=== PATIENT | female | born 1965 | race Caucasian/White ===

== ENCOUNTER 2020-05-05 10:49 | Emergency (ER) | payer OTHER, MEDICARE ==
[~2020-05-05] VITALS: Ht 162 cm; Wt 61.0 kg
--- OUTSIDE RECORDS SUMMARY | 2020-05-05 10:58 | XMS REPORT ---
Author Author Jeri Turner Doctor Organization [facility] Address Unknown Phone Unavailable Care Team Providers Care Tissue Inserter Name Role Phone Migration, Doctor Unavailable Unavailable PROBLEMS Type Condition ICD9-CM Code [id number] Code Onset Dates Condition S tatus SNOMED Code Problem Moderate episode of recurrent major depressive disorder F33.1 Active 654609955 Problem Panic disorder with agoraphobia F40.01 Active 64415005 Problem Dental examination V72.2 Active 3 2526982 Problem Anxiety F41.9 Active [id number] ALLERGIES No Information ENCOUNTERS Encounter Location Date Diagnosis [facility] [address] [place] [phone] 04 Dec, 2019 [facility] [address] [place] [address] 30 Oct, 2019 Dental examination Z01.20 ; Periodontitis K05.30 and Oral health maintenance status requiring routine preventive dental care K08.9 [facility] [address] [place] [address] [place] [address] Sep, Moderate episode of recurrent major depressive disorder F33.1 ; Anxiety F41.9 and Panic disorder with agoraphobia F40.01 [facility] [address] [place] [address] [place] [phone] 13 Jun, 2019 Moderate episode of recurrent major depressive disorder F33.1 ; Anxiety F41.9 and Panic disorder with agoraphobia F40.01 [facility] [address] [place] [address] 11 Apr, 2019 Dental examination Z01.20 ; Periodontitis K05.30 and Oral health maintenance status requiring routine preventive dental care K08.9 [facility] [address] [place], [place] [id number] [place] [address] 11 Apr, 2019 Moderate episode of recurrent major depressive disorder F33.1 ; Anxiety F41.9 and Panic disorder with agoraphobia F40.01 [facility] [place] [address] [id number] [place] [address] Feb, [facility] [address] [place], [place] [id number] [address] Feb, [facility] [address] [place] [id number] [place] [address] Jan, Dental examination Z01.20 ; Oral health maintenance status requiring routine preventive dental care K08.9 and Periodontitis K05.30 [facility] [address] [place] [address] [place], [place] [id number] [place] [address] Dec, Moderate episode of recurrent major depressive disorder F33.1 ; Anxiety F41.9 and Panic disorder with agoraphobia F40.01 [facility] [address] [place] [address] [place] [id number] [place] [address] 15 Nov, 2018 Caries K02.9 [facility] [address] [place] [id number] [address] Oct, Caries K02.9 and Dental examination Z01.20 [facility] [address] [place] [address] [place] [id number] [place] [address] Sep, [facility] [address] [place] [id number] [place] [address] Sep, Anxiety F41.9 ; Moderate episode of recurrent major depressive disorder F33.1 and Panic disorder with agoraphobia F40.01 [facility] [address] [place] [address] [place] [id number] [place] [address] Sep, Dental examination Z01.20 ; Periodontitis K05.30 ; Oral health maintenance status requiring routine preventive dental care K08.9 and Caries K02.9 [facility] [address] [place] [address] [place] [id number] [address] Aug, Moderate episode of recurrent major depressive disorder F33.1 [facility] [address] [place] [address] [place] [id number] [place] [address] Aug, Anxiety F41.9 ; Moderate episode of recurrent major depressive disorder F33.1 and Panic disorder with agoraphobia F40.01 [facility] [place] [address] [id number] [place] [address] May, Anxiety F41.9 ; Moderate episode of recu rrent major depressive disorder F33.1 and Panic disorder with agoraphobia F40.01 [facility] [place] [address] [id number] [place] [address] Feb, Anxiety F41.9 ; Moderate episode of recu rrent major depressive disorder F33.1 and Panic disorder with agoraphobia F40.01 [facility] [place] [address] [place] [address] 20 Dec, 18 Dental examination Z01.20 [facility] [place] [address] [place] [address] 08 Dec, 18 Dental examination Z01.20 [facility] [place] [address] [place] [address] Nov, 18 Dental examination Z01.20 [facility] [place] [address] [place] [address] Nov, 18 Anxiety F41.9 [facility] [place] [address] [id number] [place] [address] Nov, Anxiety F41.9 ; Moderate episode of recu rrent major depressive disorder F33.1 and Panic disorder with agoraphobia F40.01 [facility] [place] [address] [place] [address] 09 Sep, 17 Dental examination Z01.20 [facility] [place] [address] [place] [address] Jul, 17 Dental examination Z01.20 [facility] [place] [address] [id number] [place] [address] Jul, Anxiety F41.9 [facility] [place] [address] [id number] [place] [address] Jul, Anxiety F41.9 ; Moderate episode of recu rrent major depressive disorder F33.1 and Panic disorder with agoraphobia F40.01 [facility] [address] [place] [address] Apr, [facility] [place] [address] [facility] [id number] [place] [address] Apr, Anxiety F41.9 [facility] [place] [address] [id number] [place] [address] Apr, Anxiety F41.9 ; Moderate episode of recu rrent major depressive disorder F33.1 and Panic disorder with agoraphobia F40.01 [facility] [address] [place] [address] Apr, Dental examination Z01.20 [facility] [address] [id number] [place] [address] March, Anxiety F41.9 ; Moderate episode of recu rrent major depressive disorder F33.1 and Panic disorder with agoraphobia F40.01 [facility] [address] [place] [address] March, Dental examination Z01.20 [facility] [address] [id number] [place] [address] Feb, Anxiety F41.9 [facility] [address] [id number] [place] [address] Feb, Anxiety F41.9 ; Moderate episode of recu rrent major depressive disorder F33.1 and Panic disorder with agoraphobia F40.01 [facility] [address] [place] [address] Jan, Anxiety F41.9 and Moderate episode of recurrent major depressive disorder F33.1 [facility] [place] [address] [place] [address] Oct, 16 Dental examination Z01.20 [facility] [address] [place] [address] Jun, 16 Dental examination Z01.20 [facility] [address] [place] [address] Feb, 16 Dental examination Z01.20 [facility] [address] [place] [address] Oct, 15 Dental examination Z01.20 [facility] [place] [address] [address] Feb, [facility] [place] [address] [address] Feb, [facility] [place] [address] [address] Dec, [facility] [place] [address] [address] Jul, [facility] [place] [address] [address] Feb, [facility] [place] [address] [place] [id number] [place] [address] Feb, [facility] [place] [address] [address] Jan, IMMUNIZATIONS No Known Immunizations SOCIAL HISTORY Never Assessed REASON FOR VISIT PLAN OF CARE VITAL SIGNS Blood pressure systolic 128 mmHg 2014-02-07 Blood pressure diastolic 86 mmHg 2014-02-07 MEDICATIONS Unknown Medications RESULTS No Results PROCEDURES Procedure Date Ordered Result Body Site AMALGAM-TWO SURFACES PRIMARY/PERM February 07, 2014 INSTRUCTIONS MEDICATIONS ADMINISTERED No Known Medications MEDICAL (GENERAL) HISTORY Type Description Date Medical History pneumonia Medical History arthritis Medical History neck injuries Medical History anemia Medical History swollen ankles Medical History transverse myelitis Medical History fibromyalgia Medical History osteopenia Medical History restless leg syndrome Medical History neuropathy Surgical History lesion on facial gingiva of #20 partly e xcised 01/2015 Surgical History wider excision of lesion on facial gingiva #20 and reconstruction graft 02/2015 Hospitalization History surgery(s)
--- OUTSIDE RECORDS SUMMARY | 2020-05-05 10:58 | XMS REPORT ---
Author Author Jeri Turner Doctor Organization [facility] Address Unknown Phone Unavailable Care Team Providers Care Visual Manager Name Role Phone Migration, Doctor Unavailable Unavailable PROBLEMS Type Condition ICD9-CM Code [facility]92-MC Code Onset Dates Condition S tatus SNOMED Code Problem Panic disorder with agoraphobia F40.01 Active 78295639 Problem Insomnia G47.00 Active 170569713 Problem Dental examination V72.2 Active 3 2966258 Problem Anxiety F41.9 Active 15358628 Problem Moderate episode of recurrent major depressive disorder F33.1 Active 738255690 ALLERGIES No Information ENCOUNTERS Encounter Location Date Diagnosis [facility] [address] [place] [address] [place] [address] March, [facility] [address] [place] [address] [place] [address] 17 Dec, 2019 Dental examination Z01.20 and Caries K02.9 [facility] [address] [place] [address] [place] [address] 04 Dec, 2019 Moderate episode of recurrent major depressive disorder F33.1 ; Anxiety F41.9 ; Panic disorder with agoraphobia F40.01 and Insomnia G47.00 [facility] [address] [place] [address] [place] [address] 30 Oct, 2019 Dental examination Z01.20 ; Periodontitis K05.30 and Oral health maintenance status requiring routine preventive dental care K08.9 [facility] [address] [place] [address] [place] [address] Sep, Moderate episode of recurrent major depressive disorder F33.1 ; Anxiety F41.9 and Panic disorder with agoraphobia F40.01 [facility] [address] [address] [place] [address] Jun, Moderate episode of recurrent major depressive disorder F33.1 ; Anxiety F41.9 and Panic disorder with agoraphobia F40.01 [facility] [address] [place] [address] [place] [id number] [address] 11 Apr, 2019 Dental examination Z01.20 ; Periodontitis K05.30 and Oral health maintenance status requiring routine preventive dental care K08.9 [facility] [address] [address] [place] [id number] [address] 11 Apr, 2019 Moderate episode of recurrent major depressive disorder F33.1 ; Anxiety F41.9 and Panic disorder with agoraphobia F40.01 [facility] [address] [id number] [place] [address] Feb, [facility] [address] [place] [id number] [place] [address] Feb, [facility] [address] [place] [id number] [place] [address] Jan, Dental examination Z01.20 ; Oral health maintenance status requiring routine preventive dental care K08.9 and Periodontitis K05.30 [facility] [address] [address] [place] [id number] [place] [address] Dec, Moderate episode of recurrent major depressive disorder F33.1 ; Anxiety F41.9 and Panic disorder with agoraphobia F40.01 [facility] [address] [address] [place] [id number] [place] [address] 15 Nov, 2018 Caries K02.9 [facility] [address] [address] [place] [id number] [place] [address] 17 Oct, 2018 Caries K02.9 and Dental examination Z01.20 [facility] [address] [place] [address] [place] [id number] [address] Sep, [facility] [place] [address] [place] [id number] [address] Sep, Anxiety F41.9 ; Moderate episode of recurrent major depressive disorder F33.1 and Panic disorder with agoraphobia F40.01 [facility] [address] [address] [place] [id number] [address] Sep, Dental examination Z01.20 ; Periodontitis K05.30 ; Oral health maintenance status requiring routine preventive dental care K08.9 and Caries K02.9 [facility] [address] [place] [id number] [address] Aug, Moderate episode of recurrent major depressive disorder F33.1 [facility] [address] [address] [place] [id number] [address] Aug, Anxiety F41.9 ; Moderate episode of recurrent major depressive disorder F33.1 and Panic disorder with agoraphobia F40.01 [facility] [address] [id number] [place] [address] May, Anxiety F41.9 ; Moderate episode of recu rrent major depressive disorder F33.1 and Panic disorder with agoraphobia F40.01 [facility] [place] [address] [id number] [place] [address] Feb, Anxiety F41.9 ; Moderate episode of recu rrent major depressive disorder F33.1 and Panic disorder with agoraphobia F40.01 [facility] [address] [place] [address] 20 Dec, 18 Dental examination Z01.20 [facility] [address] [place] [address] 08 Dec, 18 Dental examination Z01.20 [facility] [address] [place] [address] Nov, 18 Dental examination Z01.20 [facility] [address] [place] [address] Nov, 18 Anxiety F41.9 [facility] [address] [id number] [place] [address] Nov, Anxiety F41.9 ; Moderate episode of recu rrent major depressive disorder F33.1 and Panic disorder with agoraphobia F40.01 [facility] [address] [place] [address] Sep, Dental examination Z01.20 [facility] [address] [place] [address] Jul, Dental examination Z01.20 [facility] [place] [address] [id number] [place] [address] Jul, Anxiety F41.9 [facility] [place] [address] [id number] [place] [address] Jul, Anxiety F41.9 ; Moderate episode of recu rrent major depressive disorder F33.1 and Panic disorder with agoraphobia F40.01 [facility] [address] [place] [address] Apr, [facility] [address] [id number] [place] [address] Apr, Anxiety F41.9 [facility] [place] [address] [id number] [place] [address] Apr, Anxiety F41.9 ; Moderate episode of recu rrent major depressive disorder F33.1 and Panic disorder with agoraphobia F40.01 [facility] [address] [place] [address] Apr, Dental examination Z01.20 [facility] [place] [address] [id number] [place] [address] March, Anxiety F41.9 ; Moderate episode of recu rrent major depressive disorder F33.1 and Panic disorder with agoraphobia F40.01 [facility] [address] [place] [address] March, Dental examination Z01.20 [facility] [place] [address] [id number] [place] [address] Feb, Anxiety F41.9 [facility] [place] [address] [id number] [place] [address], 2017 Anxiety F41.9 ; Moderate episode of recu rrent major depressive disorder F33.1 and Panic disorder with agoraphobia F40.[address] [address] 09 Jan, 17 Anxiety F41.9 and Moderate episode of recurrent major depressive disorder F33.[address] [address] 15 Oct, 16 Dental examination Z01.[address] [address] 18 Jun, 16 Dental examination Z01.[address] [address] 18 Feb, 16 Dental examination Z01.[address] [address] 21 Oct, 15 Dental examination Z01.20 [facility] [address] [address] Feb, [facility] [address] [address] Feb, [facility] [address] [address] Dec, [facility] [address] [address] Jul, [facility] [address] [address] Feb, [facility] [address] [address] Feb, [facility] [address] [address] Jan, IMMUNIZATIONS No Known Immunizations SOCIAL HISTORY Never Assessed REASON FOR VISIT PLAN OF CARE VITAL SIGNS Blood pressure systolic 122 mmHg 2014-01-24 Blood pressure diastolic 75 mmHg 2014-01-24 MEDICATIONS Unknown Medications RESULTS No Results PROCEDURES Procedure Date Ordered Result Body Site PROPHYLAXIS - ADULT January 24, 2014 BITEWINGS - FOUR FILMS January 24, 2014 INTRAORL-PERIAPICAL 1 FILM 82932 January 24, 2014 PERIODIC ORAL EXAMINATION January 24, 2014 INSTRUCTIONS MEDICATIONS ADMINISTERED No Known Medications [...]
--- OUTSIDE RECORDS SUMMARY | 2020-05-05 10:58 | XMS REPORT ---
Author Author Jeri Turner Doctor Organization [facility] Address Unknown Phone Unavailable Care Team Providers Care Software Engineer Web Services Name Role Phone Migration, Doctor Unavailable Unavailable PROBLEMS Type Condition ICD9-CM Code [id number] Code Onset Dates Condition S tatus SNOMED Code Problem Panic disorder with agoraphobia F40.01 Active 89547284 Problem Insomnia G47.00 Active 973272215 Problem Dental examination V72.2 Active 3 4430768 Problem Anxiety F41.9 Active 04814747 Problem Moderate episode of recurrent major depressive disorder F33.1 Active 100136965 ALLERGIES No Information ENCOUNTERS Encounter Location Date Diagnosis [facility] [address] [address] [place], [place] [id number] [address] March, [facility] [address] [place] [id number] [address] Jan, Anxiety F41.9 [facility] [address] [address] [place] [id number] [address] 17 Dec, 2019 Dental examination Z01.20 and Caries K02 .9 [facility] [address] [place] [address] [address] 04 Dec, 2019 Moderate episode of recurrent major depr essive disorder F33.1 ; Anxiety F41.9 ; Panic disorder with agoraphobia F40.01 and Insomnia G47.00 [facility] [address] [place] [address] [address] 30 Oct, 2019 Dental examination Z01.20 ; Periodontiti s K05.30 and Oral health maintenance status requiring routine preventive dental care K08.9 [facility] [address] [place], [place] [id number] [address] Sep, Moderate episode of recurrent major depr essive disorder F33.1 ; Anxiety F41.9 and Panic disorder with agoraphobia F40.01 [facility] [address] [place] [address] [facility] [id number] [place] [address] Jun, Moderate episode of recurrent major depr essive disorder F33.1 ; Anxiety F41.9 and Panic disorder with agoraphobia F40.01 [facility] [address] [place] [address] [place] [address] [id number] [place] [address] 11 Apr, 2019 Dental examination Z01.20 ; Periodontiti s K05.30 and Oral health maintenance status requiring routine preventive dental care K08.9 [facility] [address] [place] [address] [place] [address] [id number] [place] [address] 11 Apr, 2019 Moderate episode of recurrent major depr essive disorder F33.1 ; Anxiety F41.9 and Panic disorder with agoraphobia F40.01 [facility] [address] [facility] [id number] [address] [place] [address] Feb, [facility] [address] [place] [address] [place] [id number] [address] Feb, [facility] [address] [place] [address] [place] [id number] [address] 20 Jan, 2019 Dental examination Z01.20 ; Oral health maintenance status requiring routine preventive dental care K08.9 and Periodontitis K05.30 [facility] [address] [place] [address] [place] [address] [id number] [place] [address] Dec, Moderate episode of recurrent major depr essive disorder F33.1 ; Anxiety F41.9 and Panic disorder with agoraphobia F40.01 [facility] [address] [place] [address] [place] [address] [id number] [place] [address] Nov, Caries K02.9 [facility] [address] [place] [address] [place] [address] [id number] [place] [address] Oct, Caries K02.9 and Dental examination Z01. 20 [facility] [address] [place] [address] [place] [address] [id number] [place] [address] Sep, [facility] [address] [place] [address] [place] [id number] [address] Sep, Anxiety F41.9 ; Moderate episode of recu rrent major depressive disorder F33.1 and Panic disorder with agoraphobia F40.01 [facility] [address] [place] [address] [id number] [place] [address] Sep, Dental examination Z01.20 ; Periodontiti s K05.30 ; Oral health maintenance status requiring routine preventive dental care K08.9 and Caries K02.9 [facility] [address] [address] [place] [id number] [address] Aug, Moderate episode of recurrent major depr essive disorder F33.1 [facility] [address] [place] [id number] [address] Aug, Anxiety F41.9 ; Moderate episode of recu rrent major depressive disorder F33.1 and Panic disorder with agoraphobia F40.01 [facility] [place] [address] [id number] [place] [address] May, Anxiety F41.9 ; Moderate episode of recu rrent major depressive disorder F33.1 and Panic disorder with agoraphobia F40.01 [facility] [place] [address] [id number] [place] [address] Feb, Anxiety F41.9 ; Moderate episode of recu rrent major depressive disorder F33.1 and Panic disorder with agoraphobia F40.01 [facility] [address] [place] [address] 20 Dec, 18 Dental examination Z01.20 [facility] [address] [place] [address] 08 Dec, 18 Dental examination Z01.20 [facility] [address] [place] [address] Nov, 18 Dental examination Z01.20 [facility] [address] [place] [address] Nov, 18 Anxiety F41.9 [facility] [place] [address] [id number] [place] [address] Nov, Anxiety F41.9 ; Moderate episode of recu rrent major depressive disorder F33.1 and Panic disorder with agoraphobia F40.01 [facility] [place] [address] [facility] [address] Sep, Dental examination Z01.20 [facility] [place] [address] [facility] [place] [address] Jul, Dental examination Z01.20 [facility] [place] [address] [id number] [place] [address] Jul, Anxiety F41.9 [facility] [place] [address] [id number] [place] [address] Jul, Anxiety F41.9 ; Moderate episode of recu rrent major depressive disorder F33.1 and Panic disorder with agoraphobia F40.01 [facility] [place] [address] [facility] [address] Apr, 17 [facility] [address] [id number] [address] [address] Apr, Anxiety F41.9 [facility] [place] [address] [id number] [place] [address] Apr, Anxiety F41.9 ; Moderate episode of recu rrent major depressive disorder F33.1 and Panic disorder with agoraphobia F40.01 [facility] [place] [address] [facility] [address] Apr, Dental examination Z01.20 [facility] [place] [address] [id number] [place] [address] March, Anxiety F41.9 ; Moderate episode of recu rrent major depressive disorder F33.1 and Panic disorder with agoraphobia F40.01 [facility] [place] [address] [facility] [address] March, 17 Dental examination Z01.20 [facility] [address] [id number] [address] Feb, Anxiety F41.9 [facility] [address] [id number] [place] [address] Feb, Anxiety F41.9 ; Moderate episode of recu rrent major depressive disorder F33.1 and Panic disorder with agoraphobia F40.01 [facility] [address] [place] [address] 09 Jan, 17 Anxiety F41.9 and Moderate episode of recurrent major depressive disorder F33.1 [facility] [place] [address] 15 Oct, 16 Dental examination Z01.20 [facility] [address] [place] [address] 18 Jun, 16 Dental examination Z01.20 [facility] [address] [place] [address] 18 Feb, 16 Dental examination Z01.20 [facility] [address] [place] [address] Oct, 15 Dental examination Z01.20 [facility] [address] [place] [id number] [place] [address] Feb, [facility] [address] [facility] [id number] [address] [place] [address] Feb, [facility] [address] [facility] [id number] [address] [place] [address] Dec, [facility] [address] [facility] [id number] [address] [place] [address] Jul, [facility] [address] [facility] [id number] [address] [place] [address] Feb, [facility] [address] [facility] [id number] [address] [place] [address] Feb, [facility] [address] [facility] [id number] [address] [place] [address] Jan, IMMUNIZATIONS No Known Immunizations SOCIAL HISTORY Never Assessed REASON FOR VISIT PLAN OF CARE VITAL SIGNS Blood pressure systolic 127 mmHg 2014-07-26 Blood pressure diastolic 78 mmHg 2014-07-26 MEDICATIONS Unknown Medications RESULTS No Results PROCEDURES Procedure Date Ordered Result Body Site PROPHYLAXIS - ADULT Jul 26, 2014 INSTRUCTIONS MEDICATIONS ADMINISTERED No Known Medications [...]
--- OUTSIDE RECORDS SUMMARY | 2020-05-05 10:58 | XMS REPORT ---
Author Author Jeri OROZCO Organization [facility] [address] [place] Address [address] [place] [address] Care Team Providers Care Cognos Lead Name Role Phone ERNESTO, DAWRAINER Unavailable PROBLEMS Type Condition ICD9-CM Code [id number] Code Onset Dates Condition S tatus SNOMED Code Problem Panic disorder with agoraphobia F40.01 Active 34540843 Problem Moderate episode of recurrent major depressive disorder F33.1 Active 644884915 Problem Anxiety F41.9 Active 37435968 Problem Dental examination V72.2 Active 3 5393913 ALLERGIES No Information ENCOUNTERS Encounter Location Date Diagnosis [facility] [place] [address] [id number] [address] Aug, [facility] [place] [address] [id number] [place] [address] May, Anxiety F41.9 ; Moderate episode of recu rrent major depressive disorder F33.1 and Panic disorder with agoraphobia F40.01 [facility] [place] [address] [id number] [place] [address] Feb, Anxiety F41.9 ; Moderate episode of recu rrent major depressive disorder F33.1 and Panic disorder with agoraphobia F40.01 [facility] [place] [address] [place] [address] Dec, Dental examination Z01.20 [facility] [place] [address] [place] [address] 08 Dec, 2017 Dental examination Z01.20 [facility] [place] [address] [place] [address] Nov, Dental examination Z01.20 [facility] [place] [address] [place] [address] Nov, Anxiety F41.9 [facility] [place] [address] [id number] [place] [address] Nov, Anxiety F41.9 ; Moderate episode of recu rrent major depressive disorder F33.1 and Panic disorder with agoraphobia F40.01 [facility] [place] [address] [place] [address] Sep, Dental examination Z01.20 [facility] [place] [address] [place] [address] Jul, Dental examination Z01.20 [facility] [place] [address] [id number] [place] [address] Jul, Anxiety F41.9 [facility] [place] [address] [id number] [place] [address] Jul, Anxiety F41.9 ; Moderate episode of recu rrent major depressive disorder F33.1 and Panic disorder with agoraphobia F40.01 [facility] [place] [address] [place] [address] Apr, [facility] [address] [facility] [id number] [place] [address] Apr, Anxiety F41.9 [facility] [place] [address] [id number] [place] [address] Apr, Anxiety F41.9 ; Moderate episode of recu rrent major depressive disorder F33.1 and Panic disorder with agoraphobia F40.01 [facility] [place] [address] [place] [address] Apr, Dental examination Z01.20 [facility] [place] [address] [id number] [place] [address] March, Anxiety F41.9 ; Moderate episode of recu rrent major depressive disorder F33.1 and Panic disorder with agoraphobia F40.01 [facility] [place] [address] [place] [address] March, Dental examination Z01.20 [facility] [place] [address] [id number] [place] [address] Feb, Anxiety F41.9 [facility] [address] [id number] [place] [address] Feb, Anxiety F41.9 ; Moderate episode of recu rrent major depressive disorder F33.1 and Panic disorder with agoraphobia F40.01 [facility] [place] [address] [place] [address] Jan, Anxiety F41.9 and Moderate episode of recurrent major depressive disorder F33.1 [facility] [place] [address] [place] [address] Oct, Dental examination Z01.20 [facility] [address] [address] Jun, Dental examination Z01.20 [facility] [place] [address] [place] [address] Feb, Dental examination Z01.20 [facility] [place] [address] Oct, Dental examination Z01.20 [facility] [address] [facility] [id number] [address] [place] [address] Feb, [facility] [address] [facility] [id number] [address] [place] [address] Feb, [facility] [address] [facility] [id number] [address] [place] [address] Dec, [facility] [address] [facility] [id number] [address] [place] [address] Jul, [facility] [address] [id number] [address] [place] [address] Feb, [facility] [address] [facility] [id number] [address] [place] [address] Feb, [facility] [address] [facility] [id number] [address] [place] [address] 24 Jan, 2014 IMMUNIZATIONS No Known Immunizations SOCIAL HISTORY Never Assessed REASON FOR VISIT Psych, Zulma Sotero RN PLAN OF CARE Activity Details Follow Up 3 Months, 4 Months Reason: VITAL SIGNS Height 64 in 2018-02-03 Weight 119 lbs 2018-02-03 Temperature 97.6 degrees Fahrenheit 2018-02-03 Heart Rate 77 bpm 2018-02-03 Respiratory Rate 20 2018-02-03 BMI 20.42 kg/m2 2018-02-03 Blood pressure systolic 124 mmHg 2018-02-03 Blood pressure diastolic 75 mmHg 2018-02-03 MEDICATIONS Medication Instructions Dosage Frequency Start Date End Date Duration S tatus Clonazepam 0.5 MG Orally 3 times a day by oral route 8h 30 days Active Venlafaxine HCl 37.5 MG Orally 2 times a day 1 tablet 12h 30 day(s) Active RESULTS No Results PROCEDURES Procedure Date Ordered Result Body Site [facility] VISIT ESTABLISHED PATIENT February 03, 2018 INSTRUCTIONS MEDICATIONS ADMINISTERED No Known Medications MEDICAL (GENERAL) HISTORY Type Description Date Medical History pneumonia Medical History arthritis Medical History neck injuries Medical History anemia Medical History swollen ankles Medical History transverse myelitis Medical History fibromyalgia Medical History osteopenia Surgical History lesion on facial gingiva of #20 partly e xcised 01/2015 Surgical History wider excision of lesion on facial gingiva #20 and reconstruction graft 02/2015 Hospitalization History surgery(s)
--- OUTSIDE RECORDS SUMMARY | 2020-05-05 10:58 | XMS REPORT ---
Author Author Jeri OROZCO Organization [facility] [address] [place] Address [address] [place] [address] Care Team Providers Care Manager Mall Name Role Phone ERNESTOBERTHA GARRETT Unavailable PROBLEMS Type Condition ICD9-CM Code ECT72-ZZ Code Onset Dates Condition S tatus SNOMED Code Problem Panic disorder with agoraphobia F40.01 Active 02843779 Problem Moderate episode of recurrent major depressive disorder F33.1 Active 141262924 Problem Anxiety F41.9 Active 70862075 Problem Dental examination V72.2 Active 3 3740983 ALLERGIES No Information ENCOUNTERS Encounter Location Date Diagnosis [facility] [address] [place] [address] [place] [address] Dec, 19 [facility] [address] [place] [address] [place] [address] Oct, 18 [facility] [address] [place] [address] Sep, 18 [facility] [address] [place] [address] Sep, 18 Anxiety F41.9 ; Moderate episode of recurrent major depressive disorder F33.1 and Panic disorder with agoraphobia F40.01 [facility] [address] [place] [address] [place] [address] Sep, 18 Dental examination Z01.20 ; Periodontitis K05.30 ; Oral health maintenance status requiring routine preventive dental care K08.9 and Caries K02.9 [facility] [address] [place] [address] Aug, 18 Moderate episode of recurrent major depressive disorder F33.1 [facility] [address] [place] [address] [place] [address] Aug, 18 Anxiety F41.9 ; Moderate episode of recurrent major depressive disorder F33.1 and Panic disorder with agoraphobia F40.01 [facility] [place] [address] [id number] [place] [address] May, Anxiety F41.9 ; Moderate episode of recu rrent major depressive disorder F33.1 and Panic disorder with agoraphobia F40.01 [facility] [place] [address] [id number] [place] [address] Feb, Anxiety F41.9 ; Moderate episode of recu rrent major depressive disorder F33.1 and Panic disorder with agoraphobia F40.01 [facility] [place] [address] [place] [address] 20 Dec, 18 Dental examination Z01.20 [facility] [place] [address] [place] [address] 08 Dec, 18 Dental examination Z01.20 [facility] [place] [address] [place] [address] Nov, 18 Dental examination Z01.20 [facility] [place] [address] [place] [address] Nov, 18 Anxiety F41.9 [facility] [place] [address] [id number] [place] [address] Nov, Anxiety F41.9 ; Moderate episode of recu rrent major depressive disorder F33.1 and Panic disorder with agoraphobia F40.01 [facility] [place] [address] [place] [address] Sep, 17 Dental examination Z01.20 [facility] [place] [address] [place] [address] Jul, 17 Dental examination Z01.20 [facility] [place] [address] [id number] [place] [address] Jul, Anxiety F41.9 [facility] [place] [address] [id number] [place] [address] Jul, Anxiety F41.9 ; Moderate episode of recu rrent major depressive disorder F33.1 and Panic disorder with agoraphobia F40.01 [facility] [place] [address] [place] [address] Apr, 17 [facility] [address] [facility] [id number] [address] [place] [address] Apr, Anxiety F41.9 [facility] [address] [id number] [place] [address] Apr, Anxiety F41.9 ; Moderate episode of recu rrent major depressive disorder F33.1 and Panic disorder with agoraphobia F40.01 [facility] [place] [address] [place] [address] Apr, Dental examination Z01.20 [facility] [address] [id number] [place] [address] March, Anxiety F41.9 ; Moderate episode of recu rrent major depressive disorder F33.1 and Panic disorder with agoraphobia F40.01 [facility] [place] [address] [place] [address] March, Dental examination Z01.20 [facility] [place] [address] [id number] [place] [address] Feb, Anxiety F41.9 [facility] [address] [id number] [place] [address] Feb, Anxiety F41.9 ; Moderate episode of recu rrent major depressive disorder F33.1 and Panic disorder with agoraphobia F40.01 [facility] [place] [address] [place] [address] Jan, 17 Anxiety F41.9 and Moderate episode of recurrent major depressive disorder F33.1 [facility] [place] [address] [place] [address] Oct, 16 Dental examination Z01.20 [facility] [place] [address] [place] [address] Jun, 16 Dental examination Z01.20 [facility] [address] [place] [address] Feb, 16 Dental examination Z01.20 [facility] [address] [place] [address] Oct, 15 Dental examination Z01.20 [facility] [address] [id number] [address] [place] [address] 14 Feb, 2015 [facility] [address] [id number] [address] [place] [address] Feb, [facility] [address] [id number] [address] [place] [address] Dec, [facility] [address] [facility] [id number] [address] [place] [address] Jul, [facility] [address] [facility] [id number] [address] [place] [address] Feb, [facility] [address] [id number] [address] [place] [address] Feb, [facility] [address] [facility] [id number] [address] [place] [address] Jan, IMMUNIZATIONS No Known Immunizations SOCIAL HISTORY Never Assessed REASON FOR VISIT Med Clarification PLAN OF CARE VITAL SIGNS MEDICATIONS Unknown Medications RESULTS No Results PROCEDURES No Known procedures INSTRUCTIONS MEDICATIONS ADMINISTERED No Known Medications MEDICAL [...]
--- OUTSIDE RECORDS SUMMARY | 2020-05-05 10:58 | XMS REPORT ---
Author Author Jeri OROZCO Organization [facility] [address] Address [address] [place] [address] Care Team Providers Care Human Resources Clerk Name Role Phone ERNESTO, DAWRAINER Unavailable PROBLEMS Type Condition ICD9-CM Code [id number] Code Onset Dates Condition S tatus SNOMED Code Problem Panic disorder with agoraphobia F40.01 Active 59966623 Problem Moderate episode of recurrent major depressive disorder F33.1 Active 034369393 Problem Anxiety F41.9 Active 81292238 Problem Dental examination V72.2 Active 3 6418724 ALLERGIES Substance Reaction Event Type Date Status Pramipexole Dihydrochloride Unknown Drug Allergy May, Active Nitrofurantoin Unknown Drug Allergy May, Active Naproxen Unknown Drug Allergy May, Active Mirtazapine Unknown Drug Allergy May, Active Lorazepam Unknown Drug Allergy May, Active Cipro Unknown Drug Allergy May, Active Ceftin Unknown Drug Allergy May, Active Nuvigil Unknown Drug Allergy May, Active Benadryl Unknown Drug Allergy May, Active Xanax Unknown Drug Allergy May, Active Ativan Unknown Drug Allergy May, Active Alendronate Sodium Unknown Drug Allergy May, Active Savella Unknown Drug Allergy May, Active ENCOUNTERS Encounter Location Date Diagnosis [facility] [address] [place] [address] Aug, [facility] [address] [id number] [place] [address] May, Anxiety F41.9 ; Moderate episode of recu rrent major depressive disorder F33.1 and Panic disorder with agoraphobia F40.01 [facility] [place] [address] [id number] [place] [address] Feb, Anxiety F41.9 ; Moderate episode of recu rrent major depressive disorder F33.1 and Panic disorder with agoraphobia F40.01 [facility] [address] [place] [address] 20 Dec, 18 Dental examination Z01.20 [facility] [address] [place] [address] 08 Dec, 18 Dental examination Z01.20 [facility] [address] [place] [address] Nov, 18 Dental examination Z01.20 [facility] [address] [place] [address] Nov, 18 Anxiety F41.9 [facility] [place] [address] [id number] [place] [address] Nov, Anxiety F41.9 ; Moderate episode of recu rrent major depressive disorder F33.1 and Panic disorder with agoraphobia F40.01 [facility] [address] [place] [address] Sep, 17 Dental examination Z01.20 [facility] [address] [place] [address] Jul, 17 Dental examination Z01.20 [facility] [place] [address] [id number] [place] [address] Jul, Anxiety F41.9 [facility] [place] [address] [id number] [place] [address] Jul, Anxiety F41.9 ; Moderate episode of recu rrent major depressive disorder F33.1 and Panic disorder with agoraphobia F40.01 [facility] [address] [place] [address] Apr, 17 [facility] [address] [facility] [id number] 100[place] [address] Apr, Anxiety F41.9 [facility] [place] [address] [id number] [place] [address] Apr, Anxiety F41.9 ; Moderate episode of recu rrent major depressive disorder F33.1 and Panic disorder with agoraphobia F40.01 [facility] [address] [place] [address] Apr, 17 Dental examination Z01.20 [facility] [place] [address] [id number] [place] [address] March, Anxiety F41.9 ; Moderate episode of recu rrent major depressive disorder F33.1 and Panic disorder with agoraphobia F40.01 [facility] [address] [place] [address] March, 17 Dental examination Z01.20 [facility] [place] [address] [id number] [place] [address] Feb, Anxiety F41.9 [facility] [place] [address] [id number] [place] [address] Feb, Anxiety F41.9 ; Moderate episode of recu rrent major depressive disorder F33.1 and Panic disorder with agoraphobia F40.01 [facility] [address] [place] [address] Jan, 17 Anxiety F41.9 and Moderate episode of recurrent major depressive disorder F33.[address] [address] 15 Oct, 16 Dental examination Z01.[address] [address] 18 Jun, 16 Dental examination Z01.[address] [address] Feb, 16 Dental examination Z01.[address] [address] Oct, 15 Dental examination Z01.20 [facility] [address] [place] [id number] [address] [place] [address] 14 Feb, 2015 [facility] [address] [facility] [id number] [address] [place] [address] Feb, [facility] [address] [facility] [id number] [address] [place] [address] Dec, [facility] [address] [facility] [id number] [address] [place] [address] Jul, [facility] [address] [facility] [id number] [address] [place] [address] Feb, [facility] [address] [facility] [id number] [address] [place] [address] Feb, [facility] [address] [facility] [id number] [address] [place] [address] Jan, IMMUNIZATIONS No Known Immunizations SOCIAL HISTORY Never Assessed REASON FOR VISIT Psych, anxiety, depression, panic disorder, med management f/u. Zulma christensen RN PLAN OF CARE Activity Details Follow Up 3 Months Reason: VITAL SIGNS Height 64 in 2018-05-05 Weight 116.8 lbs 2018-05-05 Temperature 97.7 degrees Fahrenheit 2018-05-05 Heart Rate 66 bpm 2018-05-05 Respiratory Rate 16 2018-05-05 BMI 20.05 kg/m2 2018-05-05 Blood pressure systolic 110 mmHg 2018-05-05 Blood pressure diastolic 60 mmHg 2018-05-05 MEDICATIONS Medication Instructions Dosage Frequency Start Date End Date Duration S tatus Clonazepam 0.5 MG Orally 3 times a day by oral route 8h 30 days Active Effexor XR 37.5 MG Orally Once a day 1 capsule with food 24h May, 30 day(s) Active Venlafaxine HCl 37.5 MG Orally 2 times a day 1 tablet 12h 30 day(s) Active RESULTS No Results PROCEDURES Procedure Date Ordered Result Body Site [facility] VISIT ESTABLISHED PATIENT May 05, 2018 INSTRUCTIONS MEDICATIONS ADMINISTERED No Known Medications [...]
--- OUTSIDE RECORDS SUMMARY | 2020-05-05 10:58 | XMS REPORT ---
Author Author Jeri Turner Doctor Organization [facility] Address Unknown Phone Unavailable Care Team Providers Care Manager Commercial Sales Name Role Phone Migration, Doctor Unavailable Unavailable PROBLEMS Type Condition ICD9-CM Code [id number] Code Onset Dates Condition S tatus SNOMED Code Problem Moderate episode of recurrent major depressive disorder F33.1 Active 142125807 Problem Panic disorder with agoraphobia F40.01 Active 08325940 Problem Dental examination V72.2 Active 3 0351032 Problem Anxiety F41.9 Active 84089172 ALLERGIES No Information ENCOUNTERS Encounter Location Date Diagnosis [facility] [address] [place] [address] March, 19 [facility] [place] [address] [facility] [id number] [place] [address] Feb, [facility] [address] [place] [address] Feb, 19 [facility] [address] [place] [address] Jan, 19 Dental examination Z01.20 ; Oral health maintenance status requiring routine preventive dental care K08.9 and Periodontitis K05.30 [facility] [address] [place] [address] Dec, 19 Moderate episode of recurrent major depressive disorder F33.1 ; Anxiety F41.9 and Panic disorder with agoraphobia F40.01 [facility] [address] [place] [address] Nov, 19 Caries K02.9 [facility] [address] [place] [address] Oct, 18 Caries K02.9 and Dental examination Z01.20 [facility] [address] [place] [address] Sep, 18 [facility] [address] [place] [address] Sep, 18 Anxiety F41.9 ; Moderate episode of recurrent major depressive disorder F33.1 and Panic disorder with agoraphobia F40.01 [facility] [address] [place] [address] Sep, 18 Dental examination Z01.20 ; Periodontitis K05.30 ; Oral health maintenance status requiring routine preventive dental care K08.9 and Caries K02.9 [facility] [address] [place] [address] Aug, Moderate episode of recurrent major depressive disorder F33.1 [facility] [address] [place] [address] Aug, Anxiety F41.9 ; Moderate episode of recurrent major depressive disorder F33.1 and Panic disorder with agoraphobia F40.01 [facility] [place] [address] [id number] [place] [address] May, Anxiety F41.9 ; Moderate episode of recu rrent major depressive disorder F33.1 and Panic disorder with agoraphobia F40.01 [facility] [place] [address] [id number] [place] [address] Feb, Anxiety F41.9 ; Moderate episode of recu rrent major depressive disorder F33.1 and Panic disorder with agoraphobia F40.01 [facility] [address] [place] [address] Dec, Dental examination Z01.20 [facility] [address] [place] [address] Dec, Dental examination Z01.20 [facility] [address] [place] [address] Nov, Dental examination Z01.20 [facility] [address] [place] [address] Nov, 18 Anxiety F41.9 [facility] [employer] [address] [id number] [place] [address] Nov, Anxiety F41.9 ; Moderate episode of recu rrent major depressive disorder F33.1 and Panic disorder with agoraphobia F40.01 [facility] [address] [place] [address] Sep, Dental examination Z01.20 [facility] [address] [place] [address] Jul, Dental examination Z01.20 [facility] [place] [address] [id number] [place] [address] Jul, Anxiety F41.9 [facility] [place] [address] [id number] [place] [address] Jul, Anxiety F41.9 ; Moderate episode of recu rrent major depressive disorder F33.1 and Panic disorder with agoraphobia F40.01 [facility] [address] [place] [address] Apr, [facility] [address] [facility] [id number] [place] [address] Apr, Anxiety F41.9 [facility] [place] [address] [id number] [place] [address] Apr, Anxiety F41.9 ; Moderate episode of recu rrent major depressive disorder F33.1 and Panic disorder with agoraphobia F40.01 [facility] [address] [place] [address] Apr, Dental examination Z01.20 [facility] [place] [address] [id number] [place] [address] March, Anxiety F41.9 ; Moderate episode of recu rrent major depressive disorder F33.1 and Panic disorder with agoraphobia F40.01 [facility] [address] [place] [address] March, Dental examination Z01.20 [facility] [place] [address] [id number] [place] [address] Feb, Anxiety F41.9 [facility] [address] [id number] [place] [address] Feb, Anxiety F41.9 ; Moderate episode of recu rrent major depressive disorder F33.1 and Panic disorder with agoraphobia F40.01 [facility] [address] [place] [address] 09 Jan, 17 Anxiety F41.9 and Moderate episode of recurrent major depressive disorder F33.1 [facility] [address] [place] [address] 15 Oct, 16 Dental examination Z01.20 [facility] [address] [place] [address] 18 Jun, 16 Dental examination Z01.20 [facility] [address] [place] [address] 18 Feb, 16 Dental examination Z01.20 [facility] [address] [place] [address] Oct, 15 Dental examination Z01.20 [facility] [place] [address] [facility] [id number] [address] [place] [phone] Feb, [facility] [place] [address] [facility] [id number] [address] [place] [address] Feb, [facility] [place] [address] [facility] [id number] [address] [place] [phone] Dec, [facility] [place] [address] [facility] [id number] [address] [place] [phone] Jul, [facility] [place] [address] [facility] [id number] [address] [place] [phone] Feb, [facility] [place] [address] [facility] [id number] [address] [place] [phone] Feb, [facility] [place] [address] [facility] [id number] [address] [place] [phone] Jan, IMMUNIZATIONS No Known Immunizations SOCIAL HISTORY Never Assessed REASON FOR VISIT [employer] [facility] PLAN OF CARE VITAL SIGNS MEDICATIONS Unknown [...]
--- OUTSIDE RECORDS SUMMARY | 2020-05-05 10:58 | XMS REPORT ---
Author Author Jeri Turner Doctor Organization [facility] Address Unknown Phone Unavailable Care Team Providers Care Senior Treasury Analyst Name Role Phone Migration, Doctor Unavailable Unavailable PROBLEMS Type Condition ICD9-CM Code OYS43-NX Code Onset Dates Condition S tatus SNOMED Code Problem Panic disorder with agoraphobia F40.01 Active 80016725 Problem Insomnia G47.00 Active 870740502 Problem Dental examination V72.2 Active 3 6657056 Problem Anxiety F41.9 Active 13269000 Problem Moderate episode of recurrent major depressive disorder F33.1 Active [id number] ALLERGIES No Information ENCOUNTERS Encounter Location Date Diagnosis [facility] [address] [place] [address] [place] [address] [address] March, [facility] [address] [place] [address] [place] [address] [address] Feb, Anxiety F41.9 [facility] [address] [place] [address] [place] [address] [address] Feb, Anxiety F41.9 [facility] [address] [place] [address] [place] [address] [address] Jan, Anxiety F41.9 [facility] [address] [address] [place] [address] [address] 17 Dec, 2019 Dental examination Z01.20 and Caries K02 .9 [facility] [address] [place] [address] [place] [address], [place] [address] 04 Dec, 2019 Moderate episode of recurrent major depr essive disorder F33.1 ; Anxiety F41.9 ; Panic disorder with agoraphobia F40.01 and Insomnia G47.00 [facility] [address] [place] [address] [place], [place] [id number] [address] Oct, Dental examination Z01.20 ; Periodontiti s K05.30 and Oral health maintenance status requiring routine preventive dental care K08.9 [facility] [address] [place] [address] [facility] [id number] [place] [address] Sep, Moderate episode of recurrent major depr essive disorder F33.1 ; Anxiety F41.9 and Panic disorder with agoraphobia F40.01 [facility] [address] [place] [address] [place] [address] [id number] [place] [address] Jun, Moderate episode of recurrent major depr essive disorder F33.1 ; Anxiety F41.9 and Panic disorder with agoraphobia F40.01 [facility] [address] [place] [address] [place] [address] [id number] [place] [address] Apr, Dental examination Z01.20 ; Periodontiti s K05.30 and Oral health maintenance status requiring routine preventive dental care K08.9 [facility] [address] [place] [address] [facility] [id number] [place] [address] Apr, Moderate episode of recurrent major depr essive disorder F33.1 ; Anxiety F41.9 and Panic disorder with agoraphobia F40.01 [facility] [address] [facility] [id number] [address] [place] [address] Feb, [facility] [address] [place] [address] [facility] [id number] [place] [address] 02 Feb, 2019 [facility] [address] [place] [address] [place] [address] [id number] [place] [address] Jan, Dental examination Z01.20 ; Oral health maintenance status requiring routine preventive dental care K08.9 and Periodontitis K05.30 [facility] [address] [place] [address] [facility] [id number] [place] [address] Dec, Moderate episode of recurrent major depr essive disorder F33.1 ; Anxiety F41.9 and Panic disorder with agoraphobia F40.01 [facility] [address] [place] [address] [facility] [id number] [place] [address] Nov, Caries K02.9 [facility] [address] [place] [address] [facility] [id number] [place] [address] 17 Oct, 2018 Caries K02.9 and Dental examination Z01. 20 [facility] [address] [place] [address] [place] [address] [id number] [place] [address] Sep, [facility] [address] [place] [address] [place] [address] [id number] [place] [address] Sep, Anxiety F41.9 ; Moderate episode of recu rrent major depressive disorder F33.1 and Panic disorder with agoraphobia F40.01 [facility] [address] [place] [address] [place] [address] [id number] [place] [address] Sep, Dental examination Z01.20 ; Periodontiti s K05.30 ; Oral health maintenance status requiring routine preventive dental care K08.9 and Caries K02.9 [facility] [address] [place] [address] [place] [address] [id number] [place] [address] Aug, Moderate episode of recurrent major depr essive disorder F33.1 [facility] [address] [place] [address] [facility] [id number] [place] [address] Aug, Anxiety F41.9 ; Moderate episode of recu rrent major depressive disorder F33.1 and Panic disorder with agoraphobia F40.01 [facility] [place] [address] [id number] [place] [address] May, Anxiety F41.9 ; Moderate episode of recu rrent major depressive disorder F33.1 and Panic disorder with agoraphobia F40.01 [facility] [place] [address] [id number] [place] [address] Feb, Anxiety F41.9 ; Moderate episode of recu rrent major depressive disorder F33.1 and Panic disorder with agoraphobia F40.01 [facility] [address] [place] [address] Dec, Dental examination Z01.20 [facility] [address] [place] [address]Dec, Dental examination Z01.[address] [facility] [address] [place] [address] Nov, Dental examination Z01.20 [facility] [place] [address] [place] [address] Nov, Anxiety F41.9 [facility] [place] [address] [id number] [place] [address] Nov, Anxiety F41.9 ; Moderate episode of recu rrent major depressive disorder F33.1 and Panic disorder with agoraphobia F40.01 [facility] [address] [place] [address] Sep, Dental examination Z01.[address] [facility] [address] [place] [address] Jul, Dental examination Z01.20 [facility] [place] [address] [id number] [place] [address] Jul, Anxiety F41.9 [facility] [place] [address] [id number] [place] [address] Jul, Anxiety F41.9 ; Moderate episode of recu rrent major depressive disorder F33.1 and Panic disorder with agoraphobia F40.01 [facility] [address] [place] [address] Apr, [facility] [place] [address] [facility] [id number] [place] [address] Apr, Anxiety F41.9 [facility] [place] [address] [facility] [id number] [place] [address] Apr, Anxiety F41.9 ; Moderate episode of recu rrent major depressive disorder F33.1 and Panic disorder with agoraphobia F40.01 [facility] [address] [place] [address] Apr, 17 Dental examination Z01.20 [facility] [place] [address] [id number] [place] [address] March, Anxiety F41.9 ; Moderate episode of recu rrent major depressive disorder F33.1 and Panic disorder with agoraphobia F40.01 [facility] [address] [place] [address] March, 17 Dental examination Z01.20 [facility] [place] [address] [id number] [place] [address] Feb, Anxiety F41.9 [facility] [place] [address] [id number] [place] [address] Feb, Anxiety F41.9 ; Moderate episode of recu rrent major depressive disorder F33.1 and Panic disorder with agoraphobia F40.01 [facility] [address] [place] [address] 09 Jan, 17 Anxiety F41.9 and Moderate episode of recurrent major depressive disorder F33.1 [facility] [address] [place] [address] 15 Oct, 16 Dental examination Z01.20 [facility] [address] [place] [address] 18 Jun, 16 Dental examination Z01.20 [facility] [address] [place] [address] 18 Feb, 16 Dental examination Z01.20 [facility] [address] [place] [address] Oct, 15 Dental examination Z01.20 [facility] [address] [facility] [id number] [address] [place] [address] Feb, [facility] [address] [place] [id number] [address] [place] [address] Feb, [facility] [address] [facility] [id number] [address] [place] [address] Dec, [facility] [address] [facility] [id number] [address] [place] [address] Jul, [facility] [address] [facility] [id number] [address] [place] [address] Feb, [facility] [address] [facility] [id number] [address] [place] [address] Feb, [facility] [address] [facility] [id number] [address] [place] [address] Jan, IMMUNIZATIONS No Known Immunizations SOCIAL HISTORY Never Assessed REASON FOR VISIT PLAN OF CARE VITAL SIGNS Blood pressure systolic 121 mmHg 2014-12-06 Blood pressure diastolic 73 mmHg 2014-12-06 MEDICATIONS Unknown Medications RESULTS No Results PROCEDURES Procedure Date Ordered Result Body Site Periodontal maint procedures Dec 06, 2014 BITEWINGS - FOUR FILMS Dec 06, 2014 PERIODIC ORAL EXAMINATION Dec 06, 2014 INSTRUCTIONS MEDICATIONS ADMINISTERED No Known Medications [...]
--- OUTSIDE RECORDS SUMMARY | 2020-05-05 10:58 | XMS REPORT ---
Author Author eJri OROZCO Organization [facility] [address] [place] Address [address] [place] [address] Care Team Providers Care Public Health Doctor Name Role Phone BERTHA OROZCO Unavailable PROBLEMS Type Condition ICD9-CM Code CNN63-JR Code Onset Dates Condition S tatus SNOMED Code Problem Panic disorder with agoraphobia F40.01 Active 91681555 Problem Moderate episode of recurrent major depressive disorder F33.1 Active 933537960 Problem Anxiety F41.9 Active 03795045 Problem Dental examination V72.2 Active 3 5702937 ALLERGIES No Information ENCOUNTERS Encounter Location Date Diagnosis [facility] [address] [address] [place] [address] Sep, 18 [facility] [address] [place] [address] [place] [address] Sep, 18 [facility] [address] [place] [address] 23 Aug, 18 Moderate episode of recurrent major depressive disorder F33.1 [facility] [address] [place] [address] [place] [address] 02 Aug, 18 Anxiety F41.9 ; Moderate episode of recurrent major depressive disorder F33.1 and Panic disorder with agoraphobia F40.01 [facility] [place] [address] [id number] [place] [address] May, Anxiety F41.9 ; Moderate episode of recu rrent major depressive disorder F33.1 and Panic disorder with agoraphobia F40.01 [facility] [place] [address] [id number] [place] [address] Feb, Anxiety F41.9 ; Moderate episode of recu rrent major depressive disorder F33.1 and Panic disorder with agoraphobia F40.01 Ren[facility] [place] [address] [place] [address] Dec, Dental examination Z01.20 [facility] [place] [address] [place] [address] Dec, Dental examination Z01.20 [facility] [address] [place] [address] Nov, Dental examination Z01.20 Ren[facility] [place] [address] [place] [address] Nov, 18 Anxiety F41.9 [facility] [place] [address] [id number] [place] [address] Nov, Anxiety F41.9 ; Moderate episode of recu rrent major depressive disorder F33.1 and Panic disorder with agoraphobia F40.01 Ren[facility] [place] [address] [place] [address] Sep, 17 Dental examination Z01.20 Ren[facility] [place] [address] [place] [address] Jul, 17 Dental examination Z01.20 [facility] [place] [address] [id number] [place] [address] Jul, Anxiety F41.9 [facility] [place] [address] [id number] [place] [address] Jul, Anxiety F41.9 ; Moderate episode of recu rrent major depressive disorder F33.1 and Panic disorder with agoraphobia F40.01 [facility]ITAL[facility] [place] [address] [place] [address] Apr, 17 [facility] [address] [facility] [id number] [address] [place] [address] Apr, Anxiety F41.9 [facility] [place] [address] [id number] [place] [address] Apr, Anxiety F41.9 ; Moderate episode of recu rrent major depressive disorder F33.1 and Panic disorder with agoraphobia F40.01 [facility] [address] [place] [address] Apr, 17 Dental examination Z01.20 [facility] [place] [address] [id number] [place] [address] 09 Mar, 2017 Anxiety F41.9 ; Moderate episode of recu rrent major depressive disorder F33.1 and Panic disorder with agoraphobia F40.01 [facility]ISA [facility] [address] [place] [address] March, 17 Dental examination Z01.20 [facility] [place] [address] [id number] [place] [address] Feb, Anxiety F41.9 [facility] [place] [address] [id number] [place] [address] Feb, Anxiety F41.9 ; Moderate episode of recu rrent major depressive disorder F33.1 and Panic disorder with agoraphobia F40.01 [facility] [address] [place] [address] Jan, 17 Anxiety F41.9 and Moderate episode of recurrent major depressive disorder F33.1 [facility]ISA [facility] [address] [place] [address] 15 Oct, 16 Dental examination Z01.20 [facility] [address] [place] [address] Jun, 16 Dental examination Z01.20 [facility] [address] [place] [address] 18 Feb, 16 Dental examination Z01.20 [facility] [address] [place] [address] Oct, 15 Dental examination Z01.20 [facility] [address] [facility] [id number] [address] [place] [address] 14 Feb, 2015 [facility] [address] [facility] [id number] [address] [place] [address] Feb, [facility] [address] [facility] [id number] [address] [place] [address] Dec, [facility] [address] [facility] [id number] [address] [place] [address] Jul, [facility] [address] [facility] [id number] [address] [place] [address] Feb, [facility] [address] [facility] [id number] [address] [place] [address] Feb, [facility] [address] [facility] [id number] [address] [place] [address] Jan, IMMUNIZATIONS No Known Immunizations SOCIAL HISTORY Never Assessed REASON FOR VISIT refill PLAN OF CARE VITAL SIGNS MEDICATIONS Medication Instructions Dosage Frequency Start Date End Date Duration S ervin Aripiprazole 2 MG Orally Once a day 1 tablet 24h Aug, 30 day(s) Active RESULTS No Results PROCEDURES No Known procedures [...]
--- OUTSIDE RECORDS SUMMARY | 2020-05-05 10:58 | XMS REPORT ---
Author Author Jeri Turner Doctor Organization [facility] Address Unknown Phone Unavailable Care Team Providers Care Hairspring Fabrication Supervisor Name Role Phone Migration, Doctor Unavailable Unavailable PROBLEMS Type Condition ICD9-CM Code [id number] Code Onset Dates Condition S tatus SNOMED Code Problem Moderate episode of recurrent major depressive disorder F33.1 Active 769030667 Problem Panic disorder with agoraphobia F40.01 Active 18387734 Problem Dental examination V72.2 Active 3 9095390 Problem Anxiety F41.9 Active 70900476 ALLERGIES Substance Reaction Event Type Date Status Lorazepam Unknown Drug Allergy Feb, Active Benadryl Unknown Drug Allergy Feb, Active Ativan Unknown Drug Allergy Feb, Active Nuvigil Unknown Drug Allergy Feb, Active Xanax Unknown Drug Allergy Feb, Active Nitrofurantoin Unknown Drug Allergy Feb, Active Naproxen Unknown Drug Allergy Feb, Active Savella Unknown Drug Allergy Feb, Active ENCOUNTERS Encounter Location Date Diagnosis [facility] [address] [address] Jun, [facility] [address] [place] [address] 11 Apr, 19 Dental examination Z01.20 ; Periodontitis K05.30 and Oral health maintenance status requiring routine preventive dental care K08.9 [facility] [address] [place] [address] 11 Apr, 19 Moderate episode of recurrent major depressive disorder F33.1 ; Anxiety F41.9 and Panic disorder with agoraphobia F40.01 [facility] [address] [facility] [id number] [address] [address] Feb, [facility] [address] [place] [phone] Feb, 19 [facility] [address] [place] [phone] Jan, 19 Dental examination Z01.20 ; Oral health maintenance status requiring routine preventive dental care K08.9 and Periodontitis K05.30 [facility] [address] [place] [address] Dec, 19 Moderate episode of recurrent major depressive disorder F33.1 ; Anxiety F41.9 and Panic disorder with agoraphobia F40.01 [facility] [address] [place] [address] 15 Nov, 19 Caries K02.9 [facility] [address] [place] [address] Oct, 18 Caries K02.9 and Dental examination Z01.20 [facility] [address] [place] [address] Sep, 18 [facility] [address] [place] [phone] Sep, 18 Anxiety F41.9 ; Moderate episode of recurrent major depressive disorder F33.1 and Panic disorder with agoraphobia F40.01 [facility] [address] [address] Sep, 18 Dental examination Z01.20 ; Periodontitis K05.30 ; Oral health maintenance status requiring routine preventive dental care K08.9 and Caries K02.9 [facility] [address] [address] Aug, 18 Moderate episode of recurrent major depressive disorder F33.1 [facility] [address] [place] [address] Aug, 18 Anxiety F41.9 ; Moderate episode of recurrent major depressive disorder F33.1 and Panic disorder with agoraphobia F40.01 [facility] [place] [address] [id number] [place] [address] May, Anxiety F41.9 ; Moderate episode of recu rrent major depressive disorder F33.1 and Panic disorder with agoraphobia F40.01 [facility] [place] [address] [id number] [place] [address] Feb, Anxiety F41.9 ; Moderate episode of recu rrent major depressive disorder F33.1 and Panic disorder with agoraphobia F40.01 [facility] [address] [place] [address] Dec, 18 Dental examination Z01.20 [facility] [address] [place] [address] 08 Dec, Dental examination Z01.20 [facility] [address] [place] [address] Nov, Dental examination Z01.20 [facility] [address] [place] [address] Nov, Anxiety F41.9 [facility] [place] [address] [id number] [place] [address] Nov, Anxiety F41.9 ; Moderate episode of recu rrent major depressive disorder F33.1 and Panic disorder with agoraphobia F40.01 [facility] [address] [place] [address] Sep, 17 Dental examination Z01.20 [facility] [address] [place] [address] Jul, 17 Dental examination Z01.20 [facility] [place] [address] [id number] [place] [address] Jul, Anxiety F41.9 [facility] [place] [address] [id number] [place] [address] Jul, Anxiety F41.9 ; Moderate episode of recu rrent major depressive disorder F33.1 and Panic disorder with agoraphobia F40.01 [facility] [address] [place] [address] Apr, 17 [facility] [address] [facility] [id number] [address] [address] Apr, Anxiety F41.9 [facility] [place] [address] [id number] [place] [address] Apr, Anxiety F41.9 ; Moderate episode of recu rrent major depressive disorder F33.1 and Panic disorder with agoraphobia F40.01 [facility] [address] [place] [address] Apr, 17 Dental examination Z01.20 [facility] [place] [address] [id number] [place] [address] March, Anxiety F41.9 ; Moderate episode of recu rrent major depressive disorder F33.1 and Panic disorder with agoraphobia F40.01 [facility] [address] [place] [address] March, 17 Dental examination Z01.20 [facility] [place] [address] [id number] [place] [address] Feb, Anxiety F41.9 [facility] [place] [address] [id number] [place] [address] Feb, Anxiety F41.9 ; Moderate episode of recu rrent major depressive disorder F33.1 and Panic disorder with agoraphobia F40.01 [facility] [address] [place] [address] Jan, 17 Anxiety F41.9 and Moderate episode of recurrent major depressive disorder F33.1 [facility] [address] [place] [address] 15 Oct, 16 Dental examination Z01.20 [facility] [address] [place] [address] Jun, 16 Dental examination Z01.20 [facility] [address] [place] [phone] Feb, 16 Dental examination Z01.20 [facility] [address] [place] [address] Oct, 15 Dental examination Z01.20 [facility] [address] [facility] [id number] [place] [address] 14 Feb, 2015 [facility] [address] [id number] [address] [place] [address] Feb, [facility] [address] [id number] [address] [place] [phone] Dec, [facility] [address] [facility] [id number] [address] [place] [phone] Jul, [facility] [address] [facility] [id number] [address] [place] [phone] Feb, [facility] [address] [facility] [id number] [address] [place] [phone] Feb, [facility] [address] [facility] [id number] [address] [place] [phone] Jan, IMMUNIZATIONS No Known Immunizations SOCIAL HISTORY Never Assessed REASON FOR VISIT [facility] PLAN OF CARE VITAL SIGNS MEDICATIONS Medication Instructions Dosage Frequency Start Date End Date Duration S tatus fluticasone by nasal route Jan, Active Gabapentin by oral route Jan, Ac tive Percocet by oral route Jan, Acti ve ZyrTEC by oral route Jan, Activ e Cymbalta by oral route Jan, Acti ve Clonazepam by oral route Jan, Ac tive tizanidine by oral route Jan, Ac tive Baclofen by oral route Jan, Acti ve RESULTS No Results PROCEDURES No Known procedures [...]
--- OUTSIDE RECORDS SUMMARY | 2020-05-05 10:58 | XMS REPORT ---
Author Author Jeri CARRIZALES Organization [facility] [address] [place] Address [address] [place] [address] Care Team Providers Care Toolsmith Name Role Phone ROJAS CARRIZALES Unavailable PROBLEMS Type Condition ICD9-CM Code [id number] Code Onset Dates Condition S tatus SNOMED Code Problem Moderate episode of recurrent major depressive disorder F33.1 Active 117613199 Problem Panic disorder with agoraphobia F40.01 Active 39677660 Problem Dental examination V72.2 Active 3 7219548 Problem Anxiety F41.9 Active 16192224 ALLERGIES Substance Reaction Event Type Date Status Nitrofurantoin Unknown Drug Allergy Jan, Active Benadryl Unknown Drug Allergy Jan, Active Ativan Unknown Drug Allergy Jan, Active Alendronate Sodium Unknown Drug Allergy Jan, Active Mirapex Unknown Drug Allergy Jan, Active Lorazepam Unknown Drug Allergy Jan, Active Cipro Unknown Drug Allergy Jan, Active Ceftin Unknown Drug Allergy Jan, Active Naproxen Unknown Drug Allergy Jan, Active Mirapex ER Unknown Drug Allergy Jan, Active Mirtazapine Unknown Drug Allergy Jan, Active Nuvigil Unknown Drug Allergy Jan, Active Savella Unknown Drug Allergy Jan, Active Pramipexole Dihydrochloride Unknown Drug Allergy Jan, Active Xanax Unknown Drug Allergy Jan, Active ENCOUNTERS Encounter Location Date Diagnosis [facility] [address] [place] [address] [place] [address] Sep, 19 [facility] [address] [place] [address] [place] [address] 13 Jun, 19 Moderate episode of recurrent major depressive disorder F33.1 ; Anxiety F41.9 and Panic disorder with agoraphobia F40.01 [facility] [address] [place] [address] [place] [address] 11 Apr, 19 Dental examination Z01.20 ; Periodontitis K05.30 and Oral health maintenance status requiring routine preventive dental care K08.9 [facility] [address] [place] [address] [place] [address] 11 Apr, 19 Moderate episode of recurrent major depressive disorder F33.1 ; Anxiety F41.9 and Panic disorder with agoraphobia F40.01 [facility] [address] [facility] [id number] [address] [address] Feb, [facility] [address] [place] [address] Feb, 19 [facility] [address] [place] [address] Jan, 19 Dental examination Z01.20 ; Oral health maintenance status requiring routine preventive dental care K08.9 and Periodontitis K05.30 [facility] [address] [place] [address] [place] [phone] Dec, 19 Moderate episode of recurrent major depressive disorder F33.1 ; Anxiety F41.9 and Panic disorder with agoraphobia F40.01 [facility] [address] [place] [address] [place] [address] 15 Nov, 19 Caries K02.9 [facility] [address] [place] [address] 17 Oct, 18 Caries K02.9 and Dental examination Z01.20 [facility] [address] [place] [address] [place] [address] 29 Sep, 18 [facility] [address] [place] [address] [place] [address] Sep, 18 Anxiety F41.9 ; Moderate episode of recurrent major depressive disorder F33.1 and Panic disorder with agoraphobia F40.01 [facility] [address] [place] [address] [place] [address] Sep, 18 Dental examination Z01.20 ; Periodontitis K05.30 ; Oral health maintenance status requiring routine preventive dental care K08.9 and Caries K02.9 [facility] [address] [place] [address] Aug, 18 Moderate episode of recurrent major depressive disorder F33.1 [facility] [address] [place] [address] Aug, 18 Anxiety F41.9 ; Moderate episode of recurrent major depressive disorder F33.1 and Panic disorder with agoraphobia F40.01 [facility] [place] [address] [id number] [place] [address] May, Anxiety F41.9 ; Moderate episode of recu rrent major depressive disorder F33.1 and Panic disorder with agoraphobia F40.01 [facility] [place] [address] [id number] [place] [address] Feb, Anxiety F41.9 ; Moderate episode of recu rrent major depressive disorder F33.1 and Panic disorder with agoraphobia F40.01 [facility] [place] [address] [place] [address] 20 Dec, 18 Dental examination Z01.20 [facility] [address] [place] [address] 08 Dec, 18 Dental examination Z01.20 [facility] [address] [place] [address] Nov, 18 Dental examination Z01.20 [facility] [address] [place] [address] Nov, 18 Anxiety F41.9 [facility] [place] [address] [id number] [place] [address] Nov, Anxiety F41.9 ; Moderate episode of recu rrent major depressive disorder F33.1 and Panic disorder with agoraphobia F40.01 [facility] [place] [address] [place] [address] Sep, 17 Dental examination Z01.20 [facility] [place] [address] [place] [address] Jul, 17 Dental examination Z01.20 [facility] [place] [address] [id number] [place] [address] Jul, Anxiety F41.9 [facility] [place] [address] [id number] [place] [address] Jul, Anxiety F41.9 ; Moderate episode of recu rrent major depressive disorder F33.1 and Panic disorder with agoraphobia F40.01 [facility] [place] [address] [place] [address] Apr, 17 [facility] [address] [facility] [id number] [address] [address] Apr, Anxiety F41.9 [facility] [place] [address] [id number] [place] [address] Apr, Anxiety F41.9 ; Moderate episode of recu rrent major depressive disorder F33.1 and Panic disorder with agoraphobia F40.01 [facility] [place] [address] [place] [address] Apr, Dental examination Z01.20 [facility] [place] [address] [id number] [place] [address] March, Anxiety F41.9 ; Moderate episode of recu rrent major depressive disorder F33.1 and Panic disorder with agoraphobia F40.01 [facility] [place] [address] [place] [facility] [place] [address] March, Dental examination Z01.20 [facility] [place] [address] [id number] [place] [address] Feb, Anxiety F41.9 [facility] [place] [address] [id number] [place] [address] Feb, Anxiety F41.9 ; Moderate episode of recu rrent major depressive disorder F33.1 and Panic disorder with agoraphobia F40.01 [facility] [place] [address] [place] [address] Jan, 17 Anxiety F41.9 and Moderate episode of recurrent major depressive disorder F33.1 [facility] [place] [address] [place] [address] 15 Oct, 16 Dental examination Z01.20 [facility] [address] [place] [address] Jun, 16 Dental examination Z01.20 [facility] [address] [place] [address] Feb, 16 Dental examination Z01.20 [facility] [address] [place] [address] Oct, 15 Dental examination Z01.20 [facility] [address] [id number] [address] [place] [address] Feb, [facility] [address] [id number] [address] [place] [address] Feb, [facility] [address] [id number] [address] [place] [address] Dec, [facility] [address] [id number] [address] [place] [phone] Jul, [facility] [address] [id number] [address] [place] [phone] Feb, [facility] [address] [id number] [address] [place] [address] Feb, [facility] [address] [id number] [address] [place] [phone] Jan, IMMUNIZATIONS No Known Immunizations SOCIAL HISTORY Never Assessed REASON FOR VISIT Perio main 4 month; upper right #4 sensitive to cold/hot PLAN OF CARE Activity Details Follow Up 3 Months, perio maint. Reaso n: VITAL SIGNS Height 64 in 2019-01-20 Blood pressure systolic 115 mmHg 2019-01-20 Blood pressure diastolic 80 mmHg 2019-01-20 MEDICATIONS Medication Instructions Dosage Frequency Start Date End Date Duration S tatus B-12 100-5000 MCG as directed Ac tive [facility] Niacin Active Clonazepam 0.5 mg Orally 2 times a day 1/2 tab 12h 3 0 days Active Aripiprazole 2 MG Orally Once a day 1 tablet 24h 30 day(s) Active Calcium Magnesium with Vitamin D and boron 3 tabs daily Active Niacin Flush Free 500 MG Orally Once a day 1 capsule 24h Active Tizanidine HCl 2 MG Orally every 8 hours, PRN 1 tablet as needed Active Gabapentin 300 MG Orally at bedtime 1 capsule Active Diflucan 100 MG Orally Three times a Week 1 tablet 10 day(s) Active Cymbalta 20 mg Orally Once a day 1 capsule 24h Active Vitamin D Orally Once a day 1 tablet 24h Act trent Baclofen 10 MG Orally Three times a day 1 tablet with food or milk 8h Active Oxycodone-Acetaminophen 5-325 MG Orally every 6 hrs 1 tablet as needed 6 h Active Meclizine HCl 25 MG Orally TID PRN 1 tablet as needed Active Ropinirole HCl 0.5 MG Orally at bedtime 1 tablet Active Magnesium Oxide 250 MG Orally Once a day 1 tablet with food 24h Active RepHresh Pro-B Orally Once a day 24h Active RESULTS No Results PROCEDURES Procedure Date Ordered Result Body Site TOPICAL FLUORIDE VARNISH January 20, 2019 Periodontal maint procedures January 20, 2019 APPLICATION DESENZT MEDICAMENT January 20, 2019 BITEWING - SINGLE FILM January 20, 2019 LTD ORAL EVALUATION - PROBLEM FOCUS January 20, 2019 INSTRUCTIONS MEDICATIONS ADMINISTERED No Known Medications MEDICAL [...]
--- OUTSIDE RECORDS SUMMARY | 2020-05-05 10:59 | XMS REPORT ---
Author Author Jeri OROZCO [facility] Address [address] [place] [address] Care Team Providers Care Bank Boss Name Role Phone BERTHA OROZCO Unavailable PROBLEMS Type Condition ICD9-CM Code TYL74-PU Code Onset Dates Condition S tatus SNOMED Code Problem Panic disorder with agoraphobia F40.01 Active 30435680 Problem Moderate episode of recurrent major depressive disorder F33.1 Active 139322065 Problem Anxiety F41.9 Active 31933824 Problem Dental examination V72.2 Active 3 7694383 ALLERGIES Substance Reaction Event Type Date Status Savella Unknown Drug Allergy Jan, Active Nuvigil Unknown Drug Allergy Jan, Active Xanax Unknown Drug Allergy Jan, Active Nitrofurantoin Unknown Drug Allergy Jan, Active Naproxen Unknown Drug Allergy Jan, Active Mirtazapine Unknown Drug Allergy Jan, Active Lorazepam Unknown Drug Allergy Jan, Active Benadryl Unknown Drug Allergy Jan, Active Ativan Unknown Drug Allergy Jan, Active SOCIAL HISTORY Never Assessed PLAN OF CARE Activity Details Follow Up 4 Weeks Reason: VITAL SIGNS Height 64 in 2017-01-09 Weight 129.2 lbs 2017-01-09 Temperature 98.7 degrees Fahrenheit 2017-01-09 Heart Rate 86 bpm 2017-01-09 Respiratory Rate 16 2017-01-09 BMI 22.17 kg/m2 2017-01-09 Blood pressure systolic 122 mmHg 2017-01-09 Blood pressure diastolic 76 mmHg 2017-01-09 MEDICATIONS Medication Instructions Dosage Frequency Start Date End Date Duration S tatus Magnesium Active Sudafed Active Cymbalta 60 MG Orally Once a day 1 capsule 24h Jan, 30 days Active Mirtazapine Active Clonazepam by oral route Jan, Ac tive Oxycodone-Acetaminophen Active tizanidine by oral route Jan, Ac tive Baclofen by oral route Jan, Acti ve Ergocalciferol Active Pramipexole Dihydrochloride Active RESULTS No Results PROCEDURES Procedure Date Ordered Result Body Site [facility] VISIT ESTABLISHED PATIENT January 09, 2017 IMMUNIZATIONS No Known Immunizations MEDICAL (GENERAL) HISTORY Type Description Date Medical [...]
--- OUTSIDE RECORDS SUMMARY | 2020-05-05 10:59 | XMS REPORT ---
Author Author Jeri GRAHAM Organization [facility] [place] Address [address] [place] [address] Care Team Providers Care Team Foreman Name Role Phone MANUELITO GRAHAM Unavailable PROBLEMS Type Condition ICD9-CM Code NJL19-JO Code Onset Dates Condition S tatus SNOMED Code Problem Panic disorder with agoraphobia F40.01 Active 96252187 Problem Moderate episode of recurrent major depressive disorder F33.1 Active 618245211 Problem Anxiety F41.9 Active 81103217 Problem Dental examination V72.2 Active 3 9390855 ALLERGIES Substance Reaction Event Type Date Status Pramipexole Dihydrochloride Unknown Drug Allergy Nov, Active Nitrofurantoin Unknown Drug Allergy Nov, Active Naproxen Unknown Drug Allergy Nov, Active Mirtazapine Unknown Drug Allergy Nov, Active Lorazepam Unknown Drug Allergy Nov, Active Cipro Unknown Drug Allergy Nov, Active Ceftin Unknown Drug Allergy Nov, Active Nuvigil Unknown Drug Allergy Nov, Active Benadryl Unknown Drug Allergy Nov, Active Xanax Unknown Drug Allergy Nov, Active Ativan Unknown Drug Allergy Nov, Active Alendronate Sodium Unknown Drug Allergy Nov, Active Savella Unknown Drug Allergy Nov, Active ENCOUNTERS Encounter Location Date Diagnosis [facility] [place] [address] [id number] [place] [address] May, [facility] [place] [address] [id number] [place] [address] Feb, Anxiety F41.9 ; Moderate episode of recu rrent major depressive disorder F33.1 and Panic disorder with agoraphobia F40.01 [facility] [place] [address] [id number] [place] [address] 116752 20 Dec, 2017 Dental examination Z01.20 [facility] [place] [address] [id number] [place] [address] 6645[address] 08 Dec, 2017 Dental examination Z01.20 [facility] [place] [address] [id number] [place] [address] 643871 Nov, Dental examination Z01.20 [facility] [place] [address] [id number] [place] [address] 4576[address] Nov, Anxiety F41.9 [facility] [place] [address] [id number] [place] [address] Nov, Anxiety F41.9 ; Moderate episode of recu rrent major depressive disorder F33.1 and Panic disorder with agoraphobia F40.01 [facility] [place] [address] [id number] [place] [address] 5301[address] Sep, Dental examination Z01.20 [facility] [place] [address] [id number] [place], [place] [address] 7477[address] Jul, Dental examination Z01.20 [facility] [place] [address] [id number] [place] [address] Jul, Anxiety F41.9 [facility] [place] [address] [id number] [place] [address] Jul, Anxiety F41.9 ; Moderate episode of recu rrent major depressive disorder F33.1 and Panic disorder with agoraphobia F40.01 [facility] [place] [address] [id number] [place], [place] [address] Apr, [facility] [address] [id number] 100KS [place] [address] Apr, Anxiety F41.9 [facility] [place] [address] [id number] [place] [address] Apr, Anxiety F41.9 ; Moderate episode of recu rrent major depressive disorder F33.1 and Panic disorder with agoraphobia F40.01 [facility] [place] [address] [id number] [place] [address] 964[address] Apr, Dental examination Z01.20 [facility] [place] [address] [id number] [place] [address] March, Anxiety F41.9 ; Moderate episode of recu rrent major depressive disorder F33.1 and Panic disorder with agoraphobia F40.01 [facility] [place] [address] [id number] [place] [address] 198042 March, Dental examination Z01.20 [facility] [place] [address] [id number] [place] [address] Feb, Anxiety F41.9 [facility] [place] [address] [id number] [place] [address] Feb, Anxiety F41.9 ; Moderate episode of recu rrent major depressive disorder F33.1 and Panic disorder with agoraphobia F40.01 [facility] [place] [address] [id number] [place] [address] 7635[address] Jan, Anxiety F41.9 and Moderate episode of recurrent major depressive disorder F33.1 [facility] [place] [address] [id number] [place] [address] 903499 Oct, Dental examination Z01.20 [facility] [place] [address] [id number] [place] [address] 046582 Jun, Dental examination Z01.20 [facility] [place] [address] [id number] [place] [address] 983702 Feb, Dental examination Z01.20 [facility] [place] [address] [id number] [place] [address] 910383 Oct, Dental examination Z01.20 [facility] [address] [facility] [id number] [address] [place] [address] 14 Feb, 2015 [facility] [address] [facility] [id number] [address] [place] [address] 13 Feb, 2015 [facility] [address] [facility] [id number] [address] [place] [phone] Dec, [facility] [address] [facility] [id number] [address] [place] [phone] Jul, [facility] [address] [facility] [id number] [address] [place] [phone] Feb, [facility] [address] [facility] [id number] [address] [place] [phone] Feb, [facility] [address] [facility] [id number] [address] [place] [phone] Jan, IMMUNIZATIONS No Known Immunizations SOCIAL HISTORY Never Assessed REASON FOR VISIT restorative PLAN OF CARE Activity Details Follow Up Adult prophy Reason: VITAL SIGNS Height 64 in 2017-11-20 Blood pressure systolic 125 mmHg 2017-11-20 Blood pressure diastolic 74 mmHg 2017-11-20 MEDICATIONS Medication Instructions Dosage Frequency Start Date End Date Duration S tatus Venlafaxine HCl 37.5 MG Orally 2 times a day 1 tablet with f ood in the AM and 1/2 at noon 12h 30 day(s) Active Clonazepam 0.5 MG Orally 3 times a day by oral route 8h 30 days Active RESULTS No Results PROCEDURES Procedure Date Ordered Result Body Site RESIN COMPOS - 3 SURFACES POSTERIOR Nov 20, 2017 Billing Notes on claim Nov 20, 2017 INSTRUCTIONS MEDICATIONS ADMINISTERED No Known Medications MEDICAL [...]
--- OUTSIDE RECORDS SUMMARY | 2020-05-05 10:59 | XMS REPORT ---
Author Author Jeri GRAHAM Organization [facility] [place] Address [address] [place] [address] Care Team Providers Care Convertible Top Installer Name Role Phone MANUELITO GRAHAM Unavailable PROBLEMS Type Condition ICD9-CM Code CLZ13-OA Code Onset Dates Condition S tatus SNOMED Code Problem Panic disorder with agoraphobia F40.01 Active 44438066 Problem Moderate episode of recurrent major depressive disorder F33.1 Active 098828214 Problem Anxiety F41.9 Active 47112009 Problem Dental examination V72.2 Active 3 6473172 ALLERGIES Substance Reaction Event Type Date Status Pramipexole Dihydrochloride Unknown Drug Allergy Jul, Active Nitrofurantoin Unknown Drug Allergy Jul, Active Naproxen Unknown Drug Allergy Jul, Active Mirtazapine Unknown Drug Allergy Jul, Active Lorazepam Unknown Drug Allergy Jul, Active Cipro Unknown Drug Allergy Jul, Active Ceftin Unknown Drug Allergy Jul, Active Nuvigil Unknown Drug Allergy Jul, Active Benadryl Unknown Drug Allergy Jul, Active Xanax Unknown Drug Allergy Jul, Active Ativan Unknown Drug Allergy Jul, Active Alendronate Sodium Unknown Drug Allergy Jul, Active Savella Unknown Drug Allergy Jul, Active ENCOUNTERS Encounter Location Date Diagnosis [facility] [place] [address] [id number] [place] [address] May, [facility] [place] [address] [id number] [place] [address] Feb, Anxiety F41.9 ; Moderate episode of recu rrent major depressive disorder F33.1 and Panic disorder with agoraphobia F40.01 [facility] [place] [address] [id number] [place], [place] [address] 9769[address] Dec, Dental examination Z01.20 [facility] [place] [address] [id number] [place] [address] [id number] 08 Dec, 2017 Dental examination Z01.20 [facility] [place] [address] [id number] [place] [address] 869125 Nov, Dental examination Z01.20 [facility] [place] [address] [id number] [place] [address] 620277 Nov, Anxiety F41.9 [facility] [place] [address] [id number] [place] [address] Nov, Anxiety F41.9 ; Moderate episode of recu rrent major depressive disorder F33.1 and Panic disorder with agoraphobia F40.01 [facility] [place] [address] [id number] [place] [address] 395147 Sep, Dental examination Z01.20 [facility] [place] [address] [id number] [place] [address] 135730 Jul, Dental examination Z01.20 [facility] [place] [address] [id number] [place] [address] Jul, Anxiety F41.9 [facility] [place] [address] [id number] [place] [address] Jul, Anxiety F41.9 ; Moderate episode of recu rrent major depressive disorder F33.1 and Panic disorder with agoraphobia F40.01 [facility] [place] [address] [id number] [place] [address] 185451 Apr, [facility] [address] [id number] [address] [place] [address] Apr, Anxiety F41.9 [facility] [place] [address] [id number] [place] [address] Apr, Anxiety F41.9 ; Moderate episode of recu rrent major depressive disorder F33.1 and Panic disorder with agoraphobia F40.01 [facility] [place] [address] [id number] [place] [address] 243737 Apr, Dental examination Z01.20 [facility] [place] [address] [id number] [place] [address] March, Anxiety F41.9 ; Moderate episode of recu rrent major depressive disorder F33.1 and Panic disorder with agoraphobia F40.01 [facility] [place] [address] [id number] [place] [address] 213087 March, Dental examination Z01.20 [facility] [place] [address] [id number] [place] [address] Feb, Anxiety F41.9 [facility] [place] [address] [id number] [place] [address] Feb, Anxiety F41.9 ; Moderate episode of recu rrent major depressive disorder F33.1 and Panic disorder with agoraphobia F40.01 [facility] [place] [address] [id number] [place] [address] 295423 Jan, Anxiety F41.9 and Moderate episode of recurrent major depressive disorder F33.1 [facility] [place] [address] [id number] [place] [address] 614168 Oct, Dental examination Z01.20 [facility] [place] [address] [id number] [place] [address] 381268 Jun, Dental examination Z01.20 [facility] [place] [address] [id number] [place] [address] 133234 Feb, Dental examination Z01.20 [facility] [place] [address] [id number] [place] [address] 965[address] Oct, Dental examination Z01.20 [facility] [address] [facility] [id number] [address] [place] [address] 14 Feb, 2015 [facility] [address] [facility] [id number] [address] [place] [phone] 13 Feb, 2015 [facility] [address] [facility] [id number] [address] [place] [phone] Dec, [facility] [address] [facility] [id number] [address] [place] [phone] Jul, [facility] [address] [facility] [id number] [address] [place] [phone] Feb, [facility] [address] [facility] [id number] [address] [place] [phone] Feb, [facility] [address] [facility] [id number] [address] [place] [address] Jan, IMMUNIZATIONS No Known Immunizations SOCIAL HISTORY Never Assessed REASON FOR VISIT PLAN OF CARE Activity Details Follow Up rest Reason: VITAL SIGNS Height 64 in 2017-07-31 Blood pressure systolic 130 mmHg 2017-07-31 Blood pressure diastolic 74 mmHg 2017-07-31 MEDICATIONS Medication Instructions Dosage Frequency Start Date End Date Duration S tatus Sudafed 24 Hour Active Baclofen Active Fish Oil 1200 MG Orally Once a day 1 capsule 24h Active Tizanidine HCl Active [id number]-Kqvnlg Active [facility] Flush Free Ac tive Fluticasone Propionate A ctive Clonazepam 0.5 MG Orally 3 times a day by oral route 8h 30 days Active Red Yeast Rice 600 MG Ac tive Venlafaxine HCl 75 MG Orally 2 times a day 1 tablet with gaurav d in the AM and 1/2 at noon 12h 30 day(s) Active Meclizine HCl Active Ropinirole HCl Active Prelief Active Oxycodone-Acetaminophen Active Magnesium Active RESULTS No Results PROCEDURES Procedure Date Ordered Result Body Site INTRAORL-PERIAPICAL 1 FILM [id number] Jul 31, 2017 RESIN COMPOS - 2 SURFACES POSTERIOR Jul 31, 2017 Billing Notes on claim Jul 31, 2017 INSTRUCTIONS MEDICATIONS ADMINISTERED No Known Medications [...]
--- OUTSIDE RECORDS SUMMARY | 2020-05-05 10:59 | XMS REPORT ---
Author Author Jeri MORFIN Organization [employer] Address Unknown Phone Unavailable Care Team Providers Care Lap Machine Operator Name Role Phone PK MORFIN CP Unavailable Allergies, Adverse Reactions, Alerts Substance Reaction Event Type Savella Info Not Available Drug Allergy Nuvigil Info Not Available Drug Allergy Xanax Info Not Available Drug Allergy Nitrofurantoin Info Not Available Drug Allergy Naproxen Info Not Available Drug Allergy Lorazepam Info Not Available Drug Allergy Benadryl Info Not Available Drug Allergy Ativan Info Not Available Drug Allergy Problems Problem Type Condition Code Onset Dates Condition Statu s Assessment Dental examination Z01.20 Active Problem Dental examination V72.2 Active Medications Medication Code System Code Instructions Start Date End Date Status Dosage fluticasone NDC 0 January 24, 2014 by na [place] route Sudafed [facility] [address]-82 not define d Vitamin D-3 [facility] [address]234 not defi oli Diphenhydramine NDC 0 not defi oli Clonazepam [facility] [address]-45 January 24, 2014 by oral route Baclofen [facility] [address]-89 January 24, 2014 by oral route Oxycodone-Acetaminophen [facility] [address]-00 not defined B12 Liquid Health Booster NDC 0 not defined Magnesium [facility] [address]81 not define d Cymbalta [facility] [address]-46 January 24, 2014 by oral route tizanidine NDC 0 January 24, 2014 by ora l route Procedures Procedure Coding System Code Date Periodontal maint procedures CPT-4 D4910 Oct 23, 2015 Vital Signs Date/Time: Oct 23, 2015 Blood Pressure Diastolic 75 mmHg Blood Pressure Systolic 125 mmHg Results No Known Results Summary Purpose [employer] Submission
--- OUTSIDE RECORDS SUMMARY | 2020-05-05 10:59 | XMS REPORT ---
Author Author Jeri MORFIN Organization [employer] Address Unknown Phone Unavailable Care Team Providers Care Water Resources Business Segment Leader Name Role Phone PK MORFIN CP Unavailable Allergies, Adverse Reactions, Alerts Substance Reaction Event Type Savella Info Not Available Drug Allergy Nuvigil Info Not Available Drug Allergy Xanax Info Not Available Drug Allergy Nitrofurantoin Info Not Available Drug Allergy Naproxen Info Not Available Drug Allergy Mirtazapine Info Not Available Drug Allergy Lorazepam Info Not Available Drug Allergy Benadryl Info Not Available Drug Allergy Ativan Info Not Available Drug Allergy Problems Problem Type Condition Code Onset Dates Condition Statu s Assessment Dental examination Z01.20 Active Problem Dental examination V72.2 Active Medications Medication Code System Code Instructions Start Date End Date Status Dosage Pramipexole Dihydrochloride [facility] [address]-48 [place] [address]-31 January 24, 2014 by oral route Ergocalciferol NDC 0 not defin ed tizanidine NDC 0 January 24, 2014 by ora [place] [address]-12 not defined Mirtazapine [facility] [address]-98 [place] [address]-42 January 24, 2014 by oral route Cyanocobalamin NDC 0 not defin ed Sudafed [facility] [address]-57 [place] [address] not define d Procedures Procedure Coding System Code Date Periodontal maint procedures CPT-4 D4910 Jun 20, 2016 Results No Known Results Summary Purpose [employer] Submission
--- OUTSIDE RECORDS SUMMARY | 2020-05-05 10:59 | XMS REPORT ---
Author Author Jeri OROZCO Organization [facility] [place] Address [address] [place] [address] Care Team Providers Care Sales And Business Development Manager Name Role Phone ERNESTO, DAWRAINER Unavailable PROBLEMS Type Condition ICD9-CM Code SKJ63-RN Code Onset Dates Condition S tatus SNOMED Code Problem Panic disorder with agoraphobia F40.01 Active 91460874 Problem Moderate episode of recurrent major depressive disorder F33.1 Active 173758762 Problem Anxiety F41.9 Active 19802934 Problem Dental examination V72.2 Active 3 2466305 ALLERGIES No Information ENCOUNTERS Encounter Location Date Diagnosis [facility] [place] [address] [id number] [place] [address] 03 Feb, 2018 [facility] [place] [address] [id number] [place] [address] 077629 20 Dec, 2017 Dental examination Z01.20 [facility] [place] [address] [id number] [place] [address] 156590 08 Dec, 2017 Dental examination Z01.20 [facility] [place] [address] [id number] [place] [address] [id number] 18 Nov, 2017 Dental examination Z01.20 [facility] [place] [address] [id number] [place] [address] [id number] 15 Nov, 2017 Anxiety F41.9 [facility] [place] [address] [id number] [place] [address] 09 Nov, 2017 Anxiety F41.9 ; Moderate episode of recu rrent major depressive disorder F33.1 and Panic disorder with agoraphobia F40.01 [facility] [place] [address] [id number] [place] [address] 074824 Sep, Dental examination Z01.20 [facility] [place] [address] [id number] [place] [address] 100765 Jul, Dental examination Z01.20 [facility] [place] [address] [id number] [place] [address] Jul, Anxiety F41.9 [facility] [place] [address] [id number] [place] [address] Jul, Anxiety F41.9 ; Moderate episode of recu rrent major depressive disorder F33.1 and Panic disorder with agoraphobia F40.01 [facility] [place] [address] [id number] [place] [address] 130355 Apr, [facility] [address] [facility] [id number] [address] [place] [address] Apr, Anxiety F41.9 [facility] [place] [address] [id number] [place] [address] Apr, Anxiety F41.9 ; Moderate episode of recu rrent major depressive disorder F33.1 and Panic disorder with agoraphobia F40.01 [facility] [place] [address] [id number] [place] [address] 299415 Apr, Dental examination Z01.20 [facility] [place] [address] [id number] [place] [address] March, Anxiety F41.9 ; Moderate episode of recu rrent major depressive disorder F33.1 and Panic disorder with agoraphobia F40.01 [facility] [place] [address] [id number] [place] [address] 447273 March, Dental examination Z01.20 [facility] [place] [address] [id number] [place] [address] Feb, Anxiety F41.9 [facility] [place] [address] [id number] [place] [address] Feb, Anxiety F41.9 ; Moderate episode of recu rrent major depressive disorder F33.1 and Panic disorder with agoraphobia F40.01 [facility] [place] [address] [id number] [place] [address] 778[address] 09 Jan, 2017 Anxiety F41.9 and Moderate episode of recurrent major depressive disorder F33.1 [facility] [place] [address] [id number] [place] [address] 333957 15 Oct, 2016 Dental examination Z01.20 [facility] [place] [address] [id number] [place] [address] 083645 Jun, Dental examination Z01.20 [facility] [place] [address] [id number] [place] [address] 046040 18 Feb, 2016 Dental examination Z01.20 [facility] [place] [address] [id number] [place] [address] 962171 Oct, Dental examination Z01.20 [facility] [address] [facility] [id number] [address] [place] [phone] Feb, [facility] [address] [facility] [id number] [address] [place] [phone] Feb, [facility] [address] [facility] [id number] [address] [place] [phone] Dec, [facility] [address] [facility] [id number] [address] [place] [phone] Jul, [facility] [address] [facility] [id number] [address] [place] [phone] Feb, [facility] [address] [facility] [id number] [address] [place] [phone] Feb, [facility] [address] [facility] [id number] [address] [place] [phone] Jan, IMMUNIZATIONS No Known Immunizations SOCIAL HISTORY Never Assessed REASON FOR VISIT clonazepam Rx PLAN OF CARE VITAL SIGNS MEDICATIONS Medication Instructions Dosage Frequency Start Date End Date Duration S tatus Clonazepam 0.5 MG Orally 3 times a day 1 tablet 8h 30 days Active RESULTS No Results PROCEDURES No Known [...]
--- OUTSIDE RECORDS SUMMARY | 2020-05-05 10:59 | XMS REPORT ---
Author Author Jeri OROZCO Organization [facility] Address [address] [place] [address] Care Team Providers Care Custom Studio Coordinator Name Role Phone BERTHA OROZCO Unavailable PROBLEMS Type Condition ICD9-CM Code [id number] Code Onset Dates Condition S tatus SNOMED Code Problem Panic disorder with agoraphobia F40.01 Active 50845116 Problem Moderate episode of recurrent major depressive disorder F33.1 Active 021019908 Problem Anxiety F41.9 Active 98420216 Problem Dental examination V72.2 Active 3 7950321 ALLERGIES No Information SOCIAL HISTORY Never Assessed PLAN OF CARE Activity Details Follow Up 6 Weeks Reason: VITAL SIGNS Height 64 in 2017-03-11 Weight 129 lbs 2017-03-11 Heart Rate 82 bpm 2017-03-11 BMI 22.14 kg/m2 2017-03-11 Blood pressure systolic 132 mmHg 2017-03-11 Blood pressure diastolic 75 mmHg 2017-03-11 MEDICATIONS Medication Instructions Dosage Frequency Start Date End Date Duration S tatus Clonazepam 0.5 MG Orally 3 times a day by oral route 8h 30 days Active Venlafaxine HCl 37.5 MG Orally twice a day 1 tablet with food 12h 30 day(s) Active RESULTS No Results PROCEDURES Procedure Date Ordered Result Body Site [facility] VISIT ESTABLISHED PATIENT March 11, 2017 IMMUNIZATIONS No Known Immunizations MEDICAL (GENERAL) [...]
--- OUTSIDE RECORDS SUMMARY | 2020-05-05 10:59 | XMS REPORT ---
Author Author Jeri GRAHAM Organization [facility] [place] Address [address] [place] [address] Care Team Providers Care Land Leasing Examiner Name Role Phone MANUELITO GRAHAM Unavailable PROBLEMS Type Condition ICD9-CM Code [id number] Code Onset Dates Condition S tatus SNOMED Code Problem Panic disorder with agoraphobia F40.01 Active 70209820 Problem Moderate episode of recurrent major depressive disorder F33.1 Active 947727214 Problem Anxiety F41.9 Active 64797570 Problem Dental examination V72.2 Active 3 5913544 ALLERGIES Substance Reaction Event Type Date Status Savella Unknown Drug Allergy Apr, Active Nuvigil Unknown Drug Allergy Apr, Active Xanax Unknown Drug Allergy Apr, Active Nitrofurantoin Unknown Drug Allergy Apr, Active Naproxen Unknown Drug Allergy Apr, Active Mirtazapine Unknown Drug Allergy Apr, Active Lorazepam Unknown Drug Allergy Apr, Active Benadryl Unknown Drug Allergy Apr, Active Ativan Unknown Drug Allergy Apr, Active ENCOUNTERS Encounter Location Date Diagnosis [facility] [place] [address] [id number] [facility] [address] 03 Feb, 2018 [facility] [place] [address] [id number] [place] [address]59[address] 20 Dec, 2017 Dental examination Z01.20 [facility] [place] [address] [id number] [place] [address] [id number] 08 Dec, 2017 Dental examination Z01.20 [facility] [place] [address] [id number] [place] [address] 623934 18 Nov, 2017 Dental examination Z01.20 [facility] [place] [address] [id number] [place] [address] 515482 15 Nov, 2017 Anxiety F41.9 [facility] [place] [address] [id number] [place] [address] Nov, Anxiety F41.9 ; Moderate episode of recu rrent major depressive disorder F33.1 and Panic disorder with agoraphobia F40.01 [facility] [place] [address] [id number] [place] [address] 604508 Sep, Dental examination Z01.20 [facility] [place] [address] [id number] [place] [address] 556061 Jul, Dental examination Z01.20 [facility] [place] [address] [id number] [place] [address] Jul, Anxiety F41.9 [facility] [place] [address] [id number] [place] [address] Jul, Anxiety F41.9 ; Moderate episode of recu rrent major depressive disorder F33.1 and Panic disorder with agoraphobia F40.01 [facility] [place] [address] [id number] [place] [phone] Apr, [facility] [address] [facility] [id number] [address] [place] [address] Apr, Anxiety F41.9 [facility] [place] [address] [id number] [place] [address] Apr, Anxiety F41.9 ; Moderate episode of recu rrent major depressive disorder F33.1 and Panic disorder with agoraphobia F40.01 [facility] [place] [address] [id number] [place] [address] 791650 Apr, Dental examination Z01.20 [facility] [place] [address] [id number] [place] [address] March, Anxiety F41.9 ; Moderate episode of recu rrent major depressive disorder F33.1 and Panic disorder with agoraphobia F40.01 [facility] [place] [address] [id number] [place] [address] 821644 March, Dental examination Z01.20 [facility] [place] [address] [id number] [place] [address] Feb, Anxiety F41.9 [facility] [place] [address] [id number] [place] [address] Feb, Anxiety F41.9 ; Moderate episode of recu rrent major depressive disorder F33.1 and Panic disorder with agoraphobia F40.01 [facility] [place] [address] [id number] [place] [address] 876342 Jan, Anxiety F41.9 and Moderate episode of recurrent major depressive disorder F33.1 [facility] [place] [address] [id number] [place] [address] 500939 Oct, Dental examination Z01.20 [facility] [place] [address] [id number] [place] [address] 253782 Jun, Dental examination Z01.20 [facility] [place] [address] [id number] [place], [place] [address] 095501 Feb, Dental examination Z01.20 [facility] [place] [address] [id number] [place], [place] [address] 785497 Oct, Dental examination Z01.20 [facility] [address] [facility] [id number] [address] [place] [address] Feb, [facility] [address] [facility] [id number] [address] [place] [address] Feb, [facility] [address] [facility] [id number] [address] [place] [address] Dec, [facility] [address] [facility] [id number] [address] [place] [address] Jul, [facility] [address] [facility] [id number] [address] [place] [address] Feb, [facility] [address] [facility] [id number] [address] [place] [address] Feb, [facility] [address] [facility] [id number] [address] [place] [address] Jan, IMMUNIZATIONS No Known Immunizations SOCIAL HISTORY Never Assessed REASON FOR VISIT Restorative PLAN OF CARE Activity Details Follow Up restorative Reason: VITAL SIGNS Height 64 in 2017-04-22 Blood pressure systolic 119 mmHg 2017-04-22 Blood pressure diastolic 69 mmHg 2017-04-22 MEDICATIONS Medication Instructions Dosage Frequency Start Date End Date Duration S tatus Fish Oil Active Clonazepam 0.5 MG Orally 3 times a day by oral route 8h 30 days Active Venlafaxine HCl 37.5 MG Orally twice a day 1 tablet with food 12h 30 day(s) Active Red Yeast Rice Active Tizanidine HCl Active Baclofen Active Niacin Active Tylenol Active RESULTS No Results PROCEDURES Procedure Date Ordered Result Body Site RESIN COMPOS - 2 SURFACES POSTERIOR April 22, 2017 Billing Notes on claim April 22, 2017 INSTRUCTIONS MEDICATIONS ADMINISTERED No Known Medications [...]
--- OUTSIDE RECORDS SUMMARY | 2020-05-05 10:59 | XMS REPORT ---
Author Author Jeri MORFIN Organization [facility] [place] Address [address] [place] [address] Care Team Providers Care Manager Pet Name Role Phone PK MORFIN Unavailable PROBLEMS Type Condition ICD9-CM Code ZOO36-GH Code Onset Dates Condition S tatus SNOMED Code Problem Panic disorder with agoraphobia F40.01 Active 54104727 Problem Moderate episode of recurrent major depressive disorder F33.1 Active 463023582 Problem Anxiety F41.9 Active 23766221 Problem Dental examination V72.2 Active 3 0509899 ALLERGIES Substance Reaction Event Type Date Status Savella Unknown Drug Allergy March, Active Nuvigil Unknown Drug Allergy March, Active Xanax Unknown Drug Allergy March, Active Nitrofurantoin Unknown Drug Allergy March, Active Naproxen Unknown Drug Allergy March, Active Mirtazapine Unknown Drug Allergy March, Active Lorazepam Unknown Drug Allergy March, Active Benadryl Unknown Drug Allergy March, Active Ativan Unknown Drug Allergy March, Active ENCOUNTERS Encounter Location Date Diagnosis [facility] [place] [address] [id number] [place] [address] Feb, [facility] [place] [address] [id number] [place], [place] [address] [id number] 20 Dec, 2017 Dental examination Z01.20 [facility] [place] [address] [id number] [place] [address] 811434 08 Dec, 2017 Dental examination Z01.20 [facility] [place] [address] [id number] [place] [address] 302926 18 Nov, 2017 Dental examination Z01.20 [facility] [place] [address] [id number] [place] [address] 629173 Nov, Anxiety F41.9 [facility] [place] [address] [id number] [place] [address] Nov, Anxiety F41.9 ; Moderate episode of recu rrent major depressive disorder F33.1 and Panic disorder with agoraphobia F40.01 [facility] [place] [address] [id number] [place] [address] 518378 Sep, Dental examination Z01.20 [facility] [place] [address] [id number] [place] [address] 174641 Jul, Dental examination Z01.20 [facility] [place] [address] [id number] [place] [address] Jul, Anxiety F41.9 [facility] [place] [address] [id number] [place] [address] Jul, Anxiety F41.9 ; Moderate episode of recu rrent major depressive disorder F33.1 and Panic disorder with agoraphobia F40.01 [facility] [place] [address] [id number] [place] [address] 876390 Apr, [facility] [address] [facility] [id number] [address] [place] [address] Apr, Anxiety F41.9 [facility] [place] [address] [id number] [place] [address] Apr, Anxiety F41.9 ; Moderate episode of recu rrent major depressive disorder F33.1 and Panic disorder with agoraphobia F40.01 [facility] [place] [address] [id number] [place] [address] 739140 Apr, Dental examination Z01.20 [facility] [place] [address] [id number] [place] [address] March, Anxiety F41.9 ; Moderate episode of recu rrent major depressive disorder F33.1 and Panic disorder with agoraphobia F40.01 [facility] [place] [address] [id number] [place] [address] 637725 March, Dental examination Z01.20 [facility] [address] [id number] [place] [address] Feb, Anxiety F41.9 [facility] [place] [address] [id number] [place] [address] Feb, Anxiety F41.9 ; Moderate episode of recu rrent major depressive disorder F33.1 and Panic disorder with agoraphobia F40.01 [facility] [place] [address] [id number] [place] [address] 890568 Jan, Anxiety F41.9 and Moderate episode of recurrent major depressive disorder F33.1 [facility] [place] [address] [id number] [place] [address] 905057 Oct, Dental examination Z01.20 [facility] [place] [address] [id number] [place] [address] 839416 Jun, Dental examination Z01.20 [facility] [place] [address] [id number] [place] [address] 479135 Feb, Dental examination Z01.20 [facility] [place] [address] [id number] [place] [address] 052819 Oct, Dental examination Z01.20 [facility] [address] [facility] [id number] [address] [place] [phone] Feb, [facility] [address] [facility] [id number] [address] [place] [phone] Feb, [facility] [address] [facility] [id number] [address] [place] [phone] Dec, [facility] [address] [facility] [id number] [address] [place] [phone] Jul, [facility] [address] [facility] [id number] [address] [place] [phone] Feb, [facility] [address] [facility] [id number] [address] [place] [phone] Feb, 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 [address] [facility] [id number] [address] [place] [address] Jan, IMMUNIZATIONS No Known Immunizations SOCIAL HISTORY Never Assessed REASON FOR VISIT guera periomain 4 month PLAN OF CARE Activity Details Follow Up restorative Reason: VITAL SIGNS Blood pressure systolic 144 mmHg 2017-03-03 Blood pressure diastolic 84 mmHg 2017-03-03 MEDICATIONS Medication Instructions Dosage Frequency Start Date End Date Duration S tatus Clonazepam 0.5 MG Orally 3 times a day by oral route 8h 30 days Active Venlafaxine HCl 37.5 MG Orally twice a day 1 tablet with food 12h Feb, 30 day(s) Active RESULTS No Results PROCEDURES Procedure Date Ordered Result Body Site PERIODIC ORAL EXAMINATION March 03, 2017 BITEWINGS - FOUR FILMS March 03, 2017 Periodontal maint procedures March 03, 2017 INSTRUCTIONS MEDICATIONS ADMINISTERED No Known Medications [...]
--- OUTSIDE RECORDS SUMMARY | 2020-05-05 10:59 | XMS REPORT ---
Author Author Jeri GRAHAM Organization [facility] [place] Address [address] [place] [address] Care Team Providers Care It Project Coordinator Name Role Phone MANUELITO GRAHMA Unavailable PROBLEMS Type Condition ICD9-CM Code XRU33-ZU Code Onset Dates Condition S tatus SNOMED Code Problem Panic disorder with agoraphobia F40.01 Active 99407693 Problem Moderate episode of recurrent major depressive disorder F33.1 Active 619772108 Problem Anxiety F41.9 Active 78564832 Problem Dental examination V72.2 Active 3 5215735 ALLERGIES Substance Reaction Event Type Date Status Pramipexole Dihydrochloride Unknown Drug Allergy Sep, Active Nitrofurantoin Unknown Drug Allergy Sep, Active Naproxen Unknown Drug Allergy Sep, Active Mirtazapine Unknown Drug Allergy Sep, Active Lorazepam Unknown Drug Allergy Sep, Active Cipro Unknown Drug Allergy Sep, Active Ceftin Unknown Drug Allergy Sep, Active Nuvigil Unknown Drug Allergy Sep, Active Benadryl Unknown Drug Allergy Sep, Active Xanax Unknown Drug Allergy Sep, Active Ativan Unknown Drug Allergy Sep, Active Alendronate Sodium Unknown Drug Allergy Sep, Active Savella Unknown Drug Allergy Sep, Active ENCOUNTERS Encounter Location Date Diagnosis [facility] [place] [address] [id number] [place] [address] May, [facility] [place] [address] [id number] [place] [address] Feb, Anxiety F41.9 ; Moderate episode of recu rrent major depressive disorder F33.1 and Panic disorder with agoraphobia F40.01 [facility] [place] [address] [id number] [place], [place] [address] 335432 20 Dec, 2017 Dental examination Z01.20 [facility] [place] [address] [id number] [place] [address] 123651 08 Dec, 2017 Dental examination Z01.20 [facility] [place] [address] [id number] [place] [address] 728609 Nov, Dental examination Z01.20 [facility] [place] [address] [id number] [place] [address] 457505 Nov, Anxiety F41.9 [facility] [place] [address] [id number] [place] [address] Nov, Anxiety F41.9 ; Moderate episode of recu rrent major depressive disorder F33.1 and Panic disorder with agoraphobia F40.01 [facility] [place] [address] [id number] [place] [address] 208516 Sep, Dental examination Z01.20 [facility] [place] [address] [id number] [place], [place] [address] 815681 Jul, Dental examination Z01.20 [facility] [place] [address] [id number] [place] [address] Jul, Anxiety F41.9 [facility] [place] [address] [id number] [place] [address] Jul, Anxiety F41.9 ; Moderate episode of recu rrent major depressive disorder F33.1 and Panic disorder with agoraphobia F40.01 [facility] [place] [address] [id number] [place] [address] 499420 Apr, [facility] [address] [id number] [address] [place] [address] Apr, Anxiety F41.9 [facility] [place] [address] [id number] [place] [address] Apr, Anxiety F41.9 ; Moderate episode of recu rrent major depressive disorder F33.1 and Panic disorder with agoraphobia F40.01 [facility] [place] [address] [id number] [place] [address] 467247 Apr, Dental examination Z01.20 [facility] [place] [address] [id number] [place] [address] March, Anxiety F41.9 ; Moderate episode of recu rrent major depressive disorder F33.1 and Panic disorder with agoraphobia F40.01 [facility] [place] [address] [id number] [place] [address] 290529 March, Dental examination Z01.20 [facility] [place] [address] [id number] [place] [address] Feb, Anxiety F41.9 [facility] [place] [address] [id number] [place] [address] Feb, Anxiety F41.9 ; Moderate episode of recu rrent major depressive disorder F33.1 and Panic disorder with agoraphobia F40.01 [facility] [place] [address] [id number] [place] [address] 360651 Jan, Anxiety F41.9 and Moderate episode of recurrent major depressive disorder F33.1 [facility] [place] [address] [id number] [place] [address] 834147 Oct, Dental examination Z01.20 [facility] [place] [address] [id number] [place] [address] 710765 Jun, Dental examination Z01.20 [facility] [place] [address] [id number] [place] [address] 104869 Feb, Dental examination Z01.20 [facility] [place] [address] [id number] [place] [address] 032479 Oct, Dental examination Z01.20 [facility] [address] [facility] [id number] [address] [place] [address] 14 Feb, 2015 [facility] [address] [facility] [id number] [address] [place] [address] 13 Feb, 2015 [facility] [address] [facility] [id number] [address] [place] [address] Dec, [facility] [address] [facility] [id number] [address] [place] [address] Jul, [facility] [address] [facility] [id number] [address] [place] [address] Feb, [facility] [address] [facility] [id number] [address] [place] [address] Feb, [facility] [address] [facility] [id number] [address] [place] [address] Jan, IMMUNIZATIONS No Known Immunizations SOCIAL HISTORY Never Assessed REASON FOR VISIT Restorative PLAN OF CARE Activity Details Follow Up MEME Reason:Restorative to c omplete trearment plan VITAL SIGNS Height 64 in 2017-09-11 Blood pressure systolic 113 mmHg 2017-09-11 Blood pressure diastolic 76 mmHg 2017-09-11 MEDICATIONS Medication Instructions Dosage Frequency Start Date End Date Duration S tatus Fluticasone Propionate A ctive Sudafed 24 Hour Active X34-Nsvldj Active Baclofen Active Meclizine HCl Active Amoxicillin Active Red Yeast Rice 600 MG Ac tive Oxycodone-Acetaminophen Active Prelief Active Ropinirole HCl Active Clonazepam 0.5 MG Orally 3 times a day by oral route 8h 30 days Active Fish Oil 1200 MG Orally Once a day 1 capsule 24h Active [facility] Niacin Flush Free Ac tive Magnesium Active Niacin 500 MG Orally Once a day 1 tablet with food 24h Not-Taking Venlafaxine HCl 75 MG Orally 2 times a day 1 tablet with gaurav d in the AM and 1/2 at noon 12h 30 day(s) Active Tizanidine HCl Active RESULTS No Results PROCEDURES Procedure Date Ordered Result Body Site RESIN COMPOS - 3 SURFACES POSTERIOR Sep 11, 2017 Billing Notes on claim Sep 11, 2017 INSTRUCTIONS MEDICATIONS ADMINISTERED No Known Medications [...]
--- OUTSIDE RECORDS SUMMARY | 2020-05-05 10:59 | XMS REPORT ---
Author Author Jeri OROZCO Organization [facility] [place] Address [address] [place] [address] Care Team Providers Care Basic Acoustic Analyst Name Role Phone ERNESTO, DAWRAINER Unavailable PROBLEMS Type Condition ICD9-CM Code ZKP36-YD Code Onset Dates Condition S tatus SNOMED Code Problem Panic disorder with agoraphobia F40.01 Active 65016569 Problem Moderate episode of recurrent major depressive disorder F33.1 Active 939407161 Problem Anxiety F41.9 Active 24307576 Problem Dental examination V72.2 Active 3 7721888 ALLERGIES No Information ENCOUNTERS Encounter Location Date Diagnosis [facility] [place] [address] [id number] [place] [address] May, [facility] [place] [address] [id number] [place] [address] Feb, Anxiety F41.9 ; Moderate episode of recu rrent major depressive disorder F33.1 and Panic disorder with agoraphobia F40.01 [facility] [place] [address] [id number] [place], [place] [address] 272300 Dec, Dental examination Z01.20 [facility] [place] [address] [id number] [place], [place] [address] 486384 08 Dec, 2017 Dental examination Z01.20 [facility] [place] [address] [id number] [place], [place] [address] 421723 Nov, Dental examination Z01.20 [facility] [place] [address] [id number] [place] [address] 559140 Nov, Anxiety F41.9 [facility] [place] [address] [id number] [place] [address] Nov, Anxiety F41.9 ; Moderate episode of recu rrent major depressive disorder F33.1 and Panic disorder with agoraphobia F40.01 [facility] [place] [address] [id number] [place] [address] 389544 Sep, Dental examination Z01.20 [facility] [place] [address] [id number] [place] [address] 402883 Jul, Dental examination Z01.20 [facility] [place] [address] [id number] [place] [address] Jul, Anxiety F41.9 [facility] [place] [address] [id number] [place] [address] Jul, Anxiety F41.9 ; Moderate episode of recu rrent major depressive disorder F33.1 and Panic disorder with agoraphobia F40.01 [facility] [place] [address] [id number] [place] [address] 977505 Apr, [facility] [address] [facility] [id number] [address] [place] [address] Apr, Anxiety F41.9 [facility] [place] [address] [id number] [place] [address] Apr, Anxiety F41.9 ; Moderate episode of recu rrent major depressive disorder F33.1 and Panic disorder with agoraphobia F40.01 [facility] [place] [address] [id number] [place] [address] 290713 Apr, Dental examination Z01.20 [facility] [place] [address] [id number] [place] [address] March, Anxiety F41.9 ; Moderate episode of recu rrent major depressive disorder F33.1 and Panic disorder with agoraphobia F40.01 [facility] [place] [address] [id number] [place] [address] 672675 March, Dental examination Z01.20 [facility] [place] [address] [id number] [place] [address] Feb, Anxiety F41.9 [facility] [address] [id number] [place], [place] [address] Feb, Anxiety F41.9 ; Moderate episode of recu rrent major depressive disorder F33.1 and Panic disorder with agoraphobia F40.01 [facility] [place] [address] [id number] [place] [address] 588921 Jan, Anxiety F41.9 and Moderate episode of recurrent major depressive disorder F33.1 [facility] [place] [address] [id number] [place] [address] 567264 15 Oct, 2016 Dental examination Z01.20 [facility] [place] [address] [id number] [place] [address] 737940 Jun, Dental examination Z01.20 [facility] [place] [address] [id number] [place] [address] 549896 Feb, Dental examination Z01.20 [facility] [place] [address] [id number] [place] [address] 214776 Oct, Dental examination Z01.20 [facility] [place] [address] [facility] [id number] [address] [place] [phone] Feb, [facility] [place] [address] [facility] [id number] [address] [place] [phone] Feb, [facility] [place] [address] [facility] [id number] [address] [place] [address] Dec, [facility] [place] [address] [facility] [id number] [address] [place] [phone] Jul, [facility] [place] [address] [facility] [id number] [address] [place] [phone] Feb, [facility] [place] [address] [facility] [id number] [address] [place] [id number] Feb, [facility], [place] [address] [facility] [id number] [address] [place] [id number] Jan, IMMUNIZATIONS No Known Immunizations SOCIAL HISTORY Never Assessed REASON FOR VISIT Refill 12/16/17 PLAN OF CARE VITAL SIGNS MEDICATIONS Medication Instructions Dosage Frequency Start Date End Date Duration S ervin Clonazepam 0.5 MG Orally 3 times a [...]
--- OUTSIDE RECORDS SUMMARY | 2020-05-05 10:59 | XMS REPORT ---
Author Author Jeir MORFIN Organization [facility] Address [address] [place] [address] Care Team Providers Care Division Engineer Name Role Phone PK MORFIN Unavailable PROBLEMS Type Condition ICD9-CM Code [id number] Code Onset Dates Condition S tatus SNOMED Code Problem Panic disorder with agoraphobia F40.01 Active 02539798 Problem Anxiety F41.9 Active 26448099 Problem Moderate episode of recurrent major depressive disorder F33.1 Active 898141267 Problem Dental examination V72.2 Active 3 1494288 ALLERGIES Substance Reaction Event Type Date Status Savella Unknown Drug Allergy Oct, Active Nuvigil Unknown Drug Allergy Oct, Active Xanax Unknown Drug Allergy Oct, Active Nitrofurantoin Unknown Drug Allergy Oct, Active Naproxen Unknown Drug Allergy Oct, Active Mirtazapine Unknown Drug Allergy Oct, Active Lorazepam Unknown Drug Allergy Oct, Active Benadryl Unknown Drug Allergy Oct, Active Ativan Unknown Drug Allergy Oct, Active SOCIAL HISTORY No smoking Hx information available PLAN OF CARE Activity Details Follow Up 4 Months/OZZY Reason: VITAL SIGNS Blood pressure systolic 149 mmHg 2016-10-17 Blood pressure diastolic 80 mmHg 2016-10-17 MEDICATIONS Medication Instructions Dosage Frequency Start Date End Date Duration S tatus Mirtazapine Active Pramipexole Dihydrochloride Active Sudafed Active tizanidine by oral route Jan, Ac tive Magnesium Active Ergocalciferol Active Cyanocobalamin Active Oxycodone-Acetaminophen Active Clonazepam by oral route Jan, Ac tive Baclofen by oral route Jan, Acti ve RESULTS No Results PROCEDURES Procedure Date Ordered Related Diagnosis Body Site Periodontal maint procedures Oct 17, 2016 IMMUNIZATIONS No Known Immunizations
--- OUTSIDE RECORDS SUMMARY | 2020-05-05 10:59 | XMS REPORT ---
Author Author Jeri GRAHAM Organization [facility] Address [address] [place] [address] Care Team Providers Care Sharepoint Admin Name Role Phone MANUELITO GRAHAM Unavailable PROBLEMS Type Condition ICD9-CM Code LAL51-QL Code Onset Dates Condition S tatus SNOMED Code Problem Panic disorder with agoraphobia F40.01 Active 42220302 Problem Moderate episode of recurrent major depressive disorder F33.1 Active 955867988 Problem Anxiety F41.9 Active 92815758 Problem Dental examination V72.2 Active 3 3557738 ALLERGIES Substance Reaction Event Type Date Status Pramipexole Dihydrochloride Unknown Drug Allergy Dec, Active Nitrofurantoin Unknown Drug Allergy Dec, Active Naproxen Unknown Drug Allergy Dec, Active Mirtazapine Unknown Drug Allergy Dec, Active Lorazepam Unknown Drug Allergy Dec, Active Cipro Unknown Drug Allergy Dec, Active Ceftin Unknown Drug Allergy Dec, Active Nuvigil Unknown Drug Allergy Dec, Active Benadryl Unknown Drug Allergy Dec, Active Xanax Unknown Drug Allergy Dec, Active Ativan Unknown Drug Allergy Dec, Active Alendronate Sodium Unknown Drug Allergy Dec, Active Savella Unknown Drug Allergy Dec, Active ENCOUNTERS Encounter Location Date Diagnosis [facility] [place] [address] [id number] [place] [address] Aug, [facility] [place] [address] [id number] [place] [address] May, Anxiety F41.9 ; Moderate episode of recu rrent major depressive disorder F33.1 and Panic disorder with agoraphobia F40.01 [facility] [place] [address] [id number] [place] [address] Feb, Anxiety F41.9 ; Moderate episode of recu rrent major depressive disorder F33.1 and Panic disorder with agoraphobia F40.01 [facility] [place] [address] [id number] [place], [place] [id number] Dec, Dental examination Z01.20 [facility] [place] [address] [id number] [place], [place] [id number] Dec, 2017 Dental examination Z01.20 [facility] [place] [address] [id number] [place] [address] [id number] Nov, Dental examination Z01.20 [facility] [place] [address] [id number] [place] [id number] Nov, Anxiety F41.9 [facility] [place] [address] [id number] [place] [address] Nov, Anxiety F41.9 ; Moderate episode of recu rrent major depressive disorder F33.1 and Panic disorder with agoraphobia F40.01 [facility] [place] [address] [id number] [place] [id number] Sep, Dental examination Z01.20 [facility] [place] [address] [id number] [place], [place] [address] [id number] Jul, Dental examination Z01.20 [facility] [place] [address] [id number] [place] [address] Jul, Anxiety F41.9 [facility] [place] [address] [id number] [place] [address] Jul, Anxiety F41.9 ; Moderate episode of recu rrent major depressive disorder F33.1 and Panic disorder with agoraphobia F40.01 [facility] [place] [address] [id number] [place] [id number] Apr, [facility] [address] [id number] 100[address] [place] [address] Apr, Anxiety F41.9 [facility] [place] [address] [id number] [place] [address] Apr, Anxiety F41.9 ; Moderate episode of recu rrent major depressive disorder F33.1 and Panic disorder with agoraphobia F40.01 [facility] [place] [address] [id number] [place] [phone] Apr, Dental examination Z01.20 [facility] [address] [id number] [place] [address] March, Anxiety F41.9 ; Moderate episode of recu rrent major depressive disorder F33.1 and Panic disorder with agoraphobia F40.01 [facility] [place] [address] [id number] [place] [id number] March, Dental examination Z01.20 [facility] [address] [id number] [place] [address] Feb, Anxiety F41.9 [facility] [address] [id number] [place] [address] Feb, Anxiety F41.9 ; Moderate episode of recu rrent major depressive disorder F33.1 and Panic disorder with agoraphobia F40.01 [facility] [place] [address] [id number] [place] [phone] Jan, Anxiety F41.9 and Moderate episode of recurrent major depressive disorder F33.1 [facility] [place] [address] [id number] [place] [id number] Oct, Dental examination Z01.20 [facility] [place] [address] [id number] [place] [address] 457336 Jun, [facility] Z01.20 [facility] [place] [address] [id number] [place] [phone] Feb, [facility] Z01.20 [facility] [place] [address] [id number] [place] [address] Oct, Dental examination Z01.20 [facility] [address] [id number] [address] [place] [phone] Feb, [facility] [address] [id number] [address] [place] [phone] Feb, [facility] [address] [id number] [address] [place] [phone] Dec, [facility] [address] [id number] [address] [place] [phone] Jul, [facility] [address] [id number] [address] [place] [phone] Feb, [facility] [address] [id number] [address] [place] [phone] Feb, [facility] [address] [facility] [id number] [address] [place] [phone] Jan, IMMUNIZATIONS No Known Immunizations SOCIAL HISTORY Never Assessed REASON FOR VISIT Restorative PLAN OF CARE Activity Details Follow Up 6 Months Reason: VITAL SIGNS Height 64 in 2017-12-23 Blood pressure systolic 116 mmHg 2017-12-23 Blood pressure diastolic 77 mmHg 2017-12-23 MEDICATIONS Medication Instructions Dosage Frequency Start Date End Date Duration S tatus Tizanidine HCl Active Venlafaxine HCl 37.5 MG Orally 2 times a day 1 tablet with f ood in the AM and 1/2 at noon 12h 30 day(s) Active Clonazepam 0.5 MG Orally 3 times a day by oral route 8h 30 days Active RESULTS No Results PROCEDURES Procedure Date Ordered Result Body Site RESIN COMPOS - 2 SURFACES POSTERIOR Dec 23, 2017 RESIN COMPOS - 3 SURFACES POSTERIOR Dec 23, 2017 Billing Notes on claim Dec 23, 2017 INSTRUCTIONS MEDICATIONS ADMINISTERED No Known Medications [...]
--- OUTSIDE RECORDS SUMMARY | 2020-05-05 11:00 | XMS REPORT | Clinical Summary ---
Author Author Talon, Jeri Wood Organization [employer] Address Unknown Phone Unavailable Allergies, Adverse Reactions, Alerts Allergy Name Reaction Description Start Date Severity Status Pr ovider FOSAMAX Critical Active Tesfaye armenta MD PRAMIPEXOLE Critical Active Tesfaye villar MD CEFTIN Critical Active Tesfaye armenta MD CIPRO Critical Active Tesfaye armenta MD MIRTAZAPINE Bloating, edema, fatigue, muscle pain Moderate Active Tesfaye Sherman MD MIRAPEX caused dizziness and weakness Moderate Active Tesfaye Sherman MD NITROFURANTION Critical Active Tesfaye kidd MD XANAX Critical Active Kayla tate MD SAVETERI Critical Active Kayla tate MD NUVIGIIsrael Critical Active Kayla tate MD NAPROXLINNEA MEDLEY Critical Active Kayla guadarrama MD BENADRYIsrael Critical Active Kayla tate MD ATIVAN Critical Active Kayla tate MD Conditions or Problems Problem Name Problem Code Onset Date Status Entry Date Provider Comment Standard Description Annotate Depression V17.0 Resolved Tesfaye Sherman MD Family history of psychiatric condition Diabetes V18.0 Resolved Tesfaye Sherman MD Family history of diabetes mellitus U T I-Recurrent 599.0 Active Kayla Owusu Urinary tract infection, site not specified Incomplete Bladder Emptying 788.21 Active Kayla Cooper MD Incomplete bladder emptying WELL WOMAN EXAMINATION V72.31 Resolved Wilner Sherman MD Routine gynecological examination Dyspareunia 625.0 Active Edith Burch MD Dyspareunia Transverse myelitis 323.9 Active Tesfaye armenta MD Unspecified causes of encephalitis, myelitis, and encephalomyelitis Spasticity 781.0 Active Tesfaye Sherman MD Abnormal involuntary movements Hyperlipidemia 272.4 Refinement Tesfaye Sherman MD Other and unspecified hyperlipidemia Mixed hyperlipidemia 272.4 Active Tesfaye villar MD Other and unspecified hyperlipidemia ANXIETY 300.00 Refinement Tesfaye Sherman MD Anxiety state, unspecified Generalized anxiety disorder 300.00 Active Tesfaye Sherman MD Anxiety state, unspecified Spasticity 781.0 Active Tesfaye Sherman MD Abnormal involuntary movements Pelvic Pain-Female 625.9 Active Kayla paul MD Unspecified symptom associated with female genital organs Fatigue 780.79 Active Tesfaye Sherman MD Other malaise and fatigue Sinusitis 461.9 Active Tesfaye Sherman MD Acute sinusitis, unspecified Interstitial Cystitis 595.1 Active Kayla richmond MD Chronic interstitial cystitis Preventive health care V70.0 Resolved Tesfaye Sherman MD Routine general medical examination at [facility] acility Sinusitis 461.9 Resolved Tesfaye Sherman MD Acute sinusitis, unspecified B12 deficiency 266.2 Active Tesfaye Sherman MD Other B- complex deficiencies Dysuria 788.1 Resolved Tesfaye Sherman MD Dysuria Sinusitis 473.9 Resolved Tesfaye Sherman MD Unspecified sinusitis (chronic) Dysuria 788.1 Resolved Tesfaye Sherman MD Dysuria Yeast infection 112.9 Active Tesfaye Owusu Candidiasis of unspecified site Depression 311 Resolved Tesfaye Sherman MD Depressive disorder, not elsewhere classified Toe pain, right 729.5 Resolved Tesfaye Sherman MD Pain in limb Foot pain, right 729.5 Resolved Tesfaye Sherman MD Pain in limb Joint pain 719.40 Resolved Tesfaye Sherman MD Pain in joint, site unspecified Tobacco abuse 305.1 Refinement Edith Burch MD Tobacco use disorder Personal history of tobacco use V15.82 Active 2017 Tesfaye Sherman MD Personal history of tobacco use Dysuria 788.1 Resolved Tesfaye Sherman MD Dysuria Depression, major, recurrent 296.30 Refinement Tesfaye Sherman MD Major depressive disorder, recurrent epi sode, unspecified degree Major depressive disorder, recurrent, moderate 296.30 Active Tesfaye Sherman MD Major depressive dis order, recurrent episode, unspecified degree URI 465.9 Active Tesfaye Sherman MD Acute upper respiratory infections of unspecified site Osteopenia 733.90 Active Tesfaye Sherman MD Disorder of bone and cartilage, unspecified Preventive health care V70.0 Resolved Tesfaye Sherman MD [facility] Body Mass Index 21.0-21.9 Adult Refinement 2017 Tesfaye Sherman MD Body Mass Index between 19-24, adult BMI 22-22.9 Refinement Tesfaye Sherman MD Body Mass Index between 19-24, adult BMI 23-23.9 Refinement León Mariee APRN Body Mass Index between 19-24, adult BMI 22-22.9 Refinement Tesfaye Sherman MD Body Mass Index between 19-24, adult BMI 23-23.9 Refinement Tesfaye Sherman MD Body Mass Index between 19-24, adult BMI 24-24.9 Refinement Tesfaye Sherman MD Body Mass Index between 19-24, adult BMI 25-25.9 Active Tesfaye Sherman MD Body Mass Index between 19-24, adult Preventive health care V70.0 Active Tesfaye barron MD Routine general medical examination at a health care facility Fibromyalgia 729.1 Active Tesfaye Sherman MD Myalgia and myositis, unspecified Personal history of fall V15.88 Active Tesfaye Sherman MD Personal history of fall Rheumatoid arthritis, chronic 714.0 Active 04/05 Tesfaye Sherman MD Rheumatoid arthritis Vertigo 780.4 Resolved Tesfaye Sherman MD Dizziness and giddiness Body Mass Index 20.0-20.9 Adult Resolved 2018 Tesfaye Sherman MD Body Mass Index between 19-24, adult Dysuria 788.1 Resolved Tesfaye Sherman MD Dysuria High risk meds snf use V58.6 Active Tesfaye Sherman MD Long-term (current) drug use Yeast infection 112.9 Inactive Tesfaye Sherman MD Candidiasis of unspecified site Upper respiratory infection 465.9 Inactive Tesfaye Sherman MD Acute upper respiratory infections of un specified site Lower extremity edema, bilateral 782.3 Active 201 07/07/09 León Kodi [employer] Edema Peripheral neuropathy 356.9 Active Tesfaye lamb MD Unspecified hereditary and idiopathic peripheral neuropathy Restless leg syndrome 333.94 Active Tesfaye lamb MD Restless legs syndrome (RLS) Overweight (BMI 25-29.9) Active Tesfaye pearson MD Overweight FH Depression ICD-V17.0 Inactive Tesfaye Sherman MD FH Diabetes ICD-V18.0 Inactive Tesfaye Sherman MD 20 22/12/06 WELL WOMAN EXAMINATION ICD-V72.31 Inactive Wilner Sherman MD Preventive health care ICD-V70.0 Inactive Wilenr Sherman MD Sinusitis ICD-461.9 Inactive Tesfaye Owusu Dysuria ICD-788.1 Inactive Tesfaye Sherman MD 201 07/05/07 Sinusitis ICD-473.9 Inactive Tesfaye Owusu Dysuria ICD-788.1 Inactive Tesfaye Sherman MD 201 07/05/07 Depression ICD-311 Inactive Tesfaye Sherman MD Toe pain, right ICD-729.5 Inactive Tesfaye lamb MD Foot pain, right ICD-729.5 Inactive Tesfaye barron MD Joint pain ICD-719.40 Inactive Tesfaye Sherman MD Dysuria ICD-788.1 Inactive Tesfaye Sherman MD 201 07/05/07 Preventive health care ICD-V70.0 Inactive Wilner Sherman MD Vertigo ICD-780.4 Inactive Tesfaye Sherman MD 201 07/05/07 Body Mass Index 20.0-20.9 Adult Eldon Shah RMA Dysuria ICD-788.1 Inactive eTsfaye Sherman MD 201 07/05/07 Yeast infection ICD-112.9 Inactive Tesfaye lamb MD Upper respiratory infection ICD-465.9 Inactive Tesfaye Sherman MD Medication List Medication Instructions Start Date Stop Date Generic Name NDC Status Provider Patient Instruction PRAMIPEXOLE DIHYDROCHLORIDE 0.75 MG ORAL TABLET take 1 tab po qhs for restless leg syndrome. PRAMIPEXOLE DIHYDROCHLORIDE [id number] Acti ve Tesfaye Sherman MD Active DIFLUCAN 100 MG ORAL TABLET 1 tablet by mouth daily 20 23/12/05 FLUCONAZOLE 13235588640 No Longer Active Tesfaye Sherman MD Acti ve [facility] NIACIN FLUSH FREE 400-100 MG ORAL CAPSULE 1 daily NIACIN-INOSITOL 88483355096 No Longer Active Tesfaye Sherman MD A ctive FISH OIL 1000 MG ORAL CAPSULE DELAYED RELEASE 1 pill b y mouth daily for cholesterol OMEGA-3 FATTY ACIDS 84359289055 No Longe r Active Tesfaye Sherman MD Active UNISOM SLEEPMELTS 25 MG ORAL TABLET DISINTEGRATING 1.5 po q hs DIPHENHYDRAMINE HCL (SLEEP) 13715179894 No Longer Active Venkata Sherman MD Active PREDNISONE 20 MG ORAL TABLET 1 tab twice daily for 3 d ay, then one daily for three days PREDNISONE 04798084877 No Longer Active Tesfaye Sherman MD Active BACLOFEN 10 MG ORAL TABLET Take one tablet by mouth three times a day BACLOFEN 23472253659 No Longer Active Tesfaye Sherman MD Active LIDOCAINE 4 % EXTERNAL CREAM Apply to back prn pain LIDOCAINE 57179148577 Active Tesfaye Sherman MD Active TIZANIDINE HCL 2 MG ORAL TABLET 2 Mg in the AM and 6mg q hs 07/05 TIZANIDINE HCL 95705923410 Active Tesfaye Sherman MD Active HYDROXYZINE HCL 25 MG TABS TAKE 1 TABLET BY MOUTH AT B EDTIME NEEDED FOR SLEEP HYDROXYZINE HCL 14993911002 Active JOSHUA Lindsay Active FLUCONAZOLE 100 MG ORAL TABLET 1 by mouth daily for yeast infect ion FLUCONAZOLE 45683061098 No Longer Active Laurence Dominguez Acti ve ZITHROMAX 250 MG ORAL TABLET 2 po today, then 1 po q days 2-5 20 21/08/28 AZITHROMYCIN 08497013095 No Longer Active Tesfaye Sherman MD Active DIFLUCAN 100 MG ORAL TABLET 1 tablet by mouth daily 20 21/08/28 FLUCONAZOLE 15196670475 No Longer Active Tesfaye Sherman MD Acti ve HYDROXYZINE HCL 25 MG ORAL TABLET 1 tab po at HS prn sleep 08/02 HYDROXYZINE HCL 11999575658 No Longer Active Tesfaye Sherman MD Active MIRAPEX 0.5 MG ORAL TABLET 1 tablet at night for restless leg. 2018 PRAMIPEXOLE DIHYDROCHLORIDE 47043758798 Active Laurenceyohana Dominguez Active MIRAPEX 0.25 MG ORAL TABLET 1 tablet by mouth at night for r estless leg PRAMIPEXOLE DIHYDROCHLORIDE 87658179682 No Longer Act trent Laurenceyohana Dominguez Active MIRAPEX 0.125 MG ORAL TABLET 1 po nightly PRAMIPEXOLE DIHYDROCHLORIDE 41699990454 No Longer Active Laurence Dominguez Active ROPINIROLE HCL 2 MG ORAL TABLET 1 po at hs ROPI NIROLE HCL 19262821901 No Longer Active Laurenceyohana Dominguez Active ROPINIROLE HCL 1 MG ORAL TABLET 1 tab po q hs ROPINIROLE HCL 53139509033 No Longer Active Laurence Dominguez Active ROPINIROLE HCL 0.5 MG ORAL TABLET 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 ROPINIROLE HCL 62686869786 No Longer Active MARCUS Panchal Active ROPINIROLE HCL 0.25 MG ORAL TABLET 1 TAB PO Q HS 05/31 ROPINIROLE HCL 31461303784 No Longer Active Tesfaye Sherman MD Ac tive PREDNISONE 20 MG ORAL TABLET 1 tab twice daily for 3 d ay, then one daily for three days PREDNISONE 46597435246 No Longer Active Tesfaye Sherman MD Active AMITRIPTYLINE HCL 50 MG ORAL TABLET 1 po q hs for sleep AMITRIPTYLINE HCL 62108314088 No Longer Active Tesfaye Sherman MD Active AMITRIPTYLINE HCL 10 MG ORAL TABLET 1 tablet nightly by mout h for neuropathy AMITRIPTYLINE HCL 43594079163 No Longer Active MARCUS Stapleton Active DIFLUCAN 100 MG ORAL TABLET 1 tablet by mouth daily 20 21/03/11 FLUCONAZOLE 55896084012 No Longer Active Tesfaye Sherman MD Acti ve BACTRIM DS 800-160 MG ORAL TABLET 1 tab by mouth twice daily 201 07/08/06 TRIMETHOPRIM-SULFAMETHOXAZOLE 48312033237 No Longer Active Umer Sherman MD Active CLARITIN 10 MG ORAL TABLET Take one by mouth daily LORATADINE 87382407365 Active Tesfaye Sherman MD Active SUDAFED 12 HOUR 120 MG ORAL TABLET EXTENDED RELEASE 12 HOUR 1 pill twice daily if needed for congestion PSEUDOEPHEDRINE HCL 811515295 13 No Longer Active Tesfaye Sherman MD Active FENOFIBRATE 145 MG ORAL TABLET 1 by mouth daily FENOFIBRATE 02639318664 Active Laurence Dominguez Active GABAPENTIN 300 MG ORAL CAPSULE 1 po daily GABAP ENTIN 14626152701 No Longer Active Tesfaye Sherman MD Active HYDROCHLOROTHIAZIDE 12.5 MG ORAL CAPSULE 1 pill by mough daily 2 HYDROCHLOROTHIAZIDE 42222449848 No Longer Active León Mariee APRN Active VENLAFAXINE HCL 75 MG ORAL TABLET 1 am 1/2 at noon 201 07/07/09 VENLAFAXINE HCL 49571419233 No Longer Active León Mariee APRN Act trent DIFLUCAN 100 MG ORAL TABLET 1 tablet by mouth daily 20 19/02/09 FLUCONAZOLE 62821280225 No Longer Active León Kodi [employer] Active DIFLUCAN 100 MG ORAL TABLET 1 tablet by mouth daily 20 19/02/09 FLUCONAZOLE 32704121636 No Longer Active León Mariee APRN Active OXYCODONE-ACETAMINOPHEN 5-325 MG ORAL TABLET Take one tablet by mouth every 6 hours 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 Use sparingly OXYCODONE-ACETAMINOPHEN 72996897139 Active Tesfaye villar MD Active CLONAZEPAM 0.5 MG ORAL TABLET Take 1/2 qam, and 1/2 qpm CLONAZEPAM 98705871372 Active Tesfaye Sherman MD Active PRELIEF 340 (65-50) MG (CA-P) ORAL TABLET CALCIUM GLYCEROPHOSPHATE 39919198174 No Longer Active Tesfaye Sherman MD Active SUDAFED 24 HOUR 240 MG ORAL TABLET EXTENDED RELEASE 24 HOUR 1 tab po daily PSEUDOEPHEDRINE HCL 65227595592 No Longer Active Raul Sherman MD Active RED YEAST RICE 600 MG ORAL CAPSULE 1 pill by mouth daily RED YEAST RICE EXTRACT 41214135103 No Longer Active Tesfaye Sherman MD Active REPHRESH PRO-B ORAL CAPSULE 1 tablet daily LACT OBACILLUS 72991704797 No Longer Active Tesfaye Sherman MD Active ABILIFY 2 MG ORAL TABLET 1 by mouth daily. MARIA ELENA PIPRAZOLE 91022371222 Active Tesfaye Sherman MD Active CYMBALTA 60 MG ORAL CAPSULE DELAYED RELEASE PARTICLES 1 cap by mouth daily for pain DULOXETINE HCL 67166072988 Active MARCUS Lindsay Active DIFLUCAN 100 MG ORAL TABLET 1 tablet by mouth daily 20 20/06/06 FLUCONAZOLE 15374131479 No Longer Active Tesfaye Sherman MD Acti ve PREDNISONE 20 MG ORAL TABLET 1 tablet by mouth twice d aily for 3 days, then 1 tablet daily for 3 days PREDNISONE 32683436497 No L onger Active Tesfaye Sherman MD Active BACTRIM DS 800-160 MG ORAL TABLET 1 tab by mouth twice daily 201 06/09/02 TRIMETHOPRIM-SULFAMETHOXAZOLE 61969369835 No Longer Active Fer Dominguez Active DIFLUCAN 100 MG ORAL TABLET 1 tablet by mouth daily 20 20/05/01 FLUCONAZOLE 16164537567 No Longer Active Tesfaye Sherman MD Acti ve ZITHROMAX 250 MG ORAL TABLET 2 po today, then 1 po q days 2-5 20 20/04/28 AZITHROMYCIN 91098506352 No Longer Active Tesfaye Sherman MD Active MECLIZINE HCL 25 MG ORAL TABLET one tab po qday prn dizziness 20 17/09/06 MECLIZINE HCL 22146157221 No Longer Active Tesfaye Sherman MD Active PROAIR HFA 108 (90 BASE) MCG/ACT INHALATION AEROSOL SO LUTION 1 puff every 6 hours as needed ALBUTEROL SULFATE 90466345739 No Long er Active Tesfaye Sherman MD Active PREDNISONE 20 MG ORAL TABLET 1 tab twice daily for 3 d ay, then one daily for three days PREDNISONE 58843158944 No Longer Active Tesfaye Sherman MD Active MECLIZINE HCL 25 MG ORAL TABLET one 4 times a day as needed for dizziness MECLIZINE HCL 47509956899 Active Tesfaye Sherman MD Active AMOXICILLIN 500 MG ORAL CAPSULE 1 cap by mouth three times a day AMOXICILLIN 66321591781 No Longer Active Laurence Dominguez Acti ve DIFLUCAN 100 MG ORAL TABLET 1 tablet by mouth daily 20 19/08/26 FLUCONAZOLE 16665090207 No Longer Active Tesfaye Sherman MD Acti ve BACTRIM DS 800-160 MG ORAL TABLET 1 tab by mouth twice daily 201 05/10/28 TRIMETHOPRIM-SULFAMETHOXAZOLE 24606838406 No Longer Active A mirna Dominguez Active FOSAMAX 70 MG ORAL TABLET 1 po qweek. Take 30min prio r to first food/drink. Avoid lying down x 1 hour. ALENDRONATE SODIUM 78812628 144 No Longer Active Laurence Lopezduyen Active CYMBALTA 60 MG ORAL CAPSULE DELAYED RELEASE PARTICLES Take 1 tablet by mouth daily DULOXETINE HCL 78821285740 No Longer Active Edith Burch MD Active CYMBALTA 30 MG ORAL CAPSULE DELAYED RELEASE PARTICLES 1 cap by mouth daily with 60mg DULOXETINE HCL 37374850678 No Longer Active Jordan Burch MD Active DIFLUCAN 100 MG ORAL TABLET 1 tablet by mouth daily 19/03/05 FLUCONAZOLE 16674095012 No Longer Active Tesfaye Sherman MD Acti ve BACTRIM DS 800-160 MG ORAL TABLET 1 tab by mouth twice daily 201 05/06/28 TRIMETHOPRIM-SULFAMETHOXAZOLE 19627495211 No Longer Active Umer Sherman MD Active BACTRIM DS 800-160 MG ORAL TABLET 1 tab by mouth twice daily 201 05/04/15 TRIMETHOPRIM-SULFAMETHOXAZOLE 32609847323 No Longer Active Umer Sherman MD Active DIFLUCAN 150 MG ORAL TABLET 1 tablet by mouth daily 20 18/09/20 FLUCONAZOLE 73441189779 No Longer Active Tesfaye Sherman MD Acti ve BACTRIM DS 800-160 MG ORAL TABLET 1 tab by mouth twice daily 201 04/13/17 TRIMETHOPRIM-SULFAMETHOXAZOLE 79507924379 No Longer Active Umer Sherman MD Active CEFTIN 250 MG ORAL TABLET 1 tablet twice daily x 7 days CEFUROXIME AXETIL 53526876936 No Longer Active Tesfaye Sherman MD Active DIFLUCAN 100 MG ORAL TABLET 1 tablet by mouth every other da y for 2 doses FLUCONAZOLE 93742092872 No Longer Active Tesfaye barron MD Active DIFLUCAN 100 MG ORAL TABLET 1 tablet by mouth daily X 3 DAYS 201 04/09/01 FLUCONAZOLE 04186605141 No Longer Active Rj Moss DO Ac tive MIRTAZAPINE 15 MG ORAL TABLET 1/2 tab by mouth at bedtime. 03/13 MIRTAZAPINE 38546103096 No Longer Active Tesfaye Sherman MD Active BACTRIM DS 800-160 MG ORAL TABLET 1 tab by mouth twice daily 201 04/09/01 TRIMETHOPRIM-SULFAMETHOXAZOLE 07400634755 No Longer Active Umer Sherman MD Active PRAMIPEXOLE DIHYDROCHLORIDE 0.125 MG ORAL TABLET take 1 tablet po qhs for restless leg syndrome. PRAMIPEXOLE DIHYDROCHLORI DE 35830480346 No Longer Active Tesfaye Sherman MD Active MAGNESIUM 400 MG ORAL TABLET 1 tab po daily MAGNE SIUM 79401352298 Active Chelsea Areyvon [employer] Active CETIRIZINE HCL 5 MG ORAL TABLET Take 1 tablet by mouth daily CETIRIZINE HCL 24844296266 No Longer Active Chelsea Arell [employer]TY M[employer]DER Activ e TRIMETHOPRIM 100 MG ORAL TABLET 1/2 qd TRIM ETHOPRIM 00726927545 No Longer Active Chelsea Cardenas APRN Active BACTRIM DS 800-160 MG ORAL TABLET 1 tab by mouth twice daily 201 04/04/11 TRIMETHOPRIM-SULFAMETHOXAZOLE 86748940544 No Longer Active Umer Sherman MD Active BACTRIM DS 800-160 MG ORAL TABLET 1 tab by mouth twice daily X 10 DAYS TRIMETHOPRIM-SULFAMETHOXAZOLE 35410516821 No Longer Active Tesfaye Sherman MD Active AMOXICILLIN 500 MG ORAL CAPSULE 1 cap by mouth three times a day AMOXICILLIN 64521835082 No Longer Active Adriana Arredondo, MARCUS A ctive B-12 1000 MCG ORAL LOZENGE 1 tab po daily CYANO COBALAMIN 44676545136 Active Tesfaye Sherman MD Active VITAMIN D3 2000 UNIT ORAL TABLET 1 daily, for vitamin D deficien cy CHOLECALCIFEROL 77514498266 No Longer Active Tesfaye Sherman MD Active ZITHROMAX 250 MG ORAL TABLET 2 po today, then 1 po q days 2-5 20 15/02/10 AZITHROMYCIN 09871701503 No Longer Active Tesfaye Sherman MD Active BACTRIM DS 800-160 MG ORAL TABLET 1 tab by mouth twice daily 201 03/03/23 TRIMETHOPRIM-SULFAMETHOXAZOLE 74908212816 No Longer Active Umer Sherman MD Active DIFLUCAN 150 MG ORAL TABLET 1 qd FLUCONAZOL E 34174276044 No Longer Active Kayla Cooper MD Active FLUTICASONE PROPIONATE 50 MCG/ACT NASAL SUSPENSION 1 spray each nostril twice daily FLUTICASONE PROPIONATE 39921931008 Active D patricia Sherman MD Active LOVASTATIN 20 MG ORAL TABLET Take 1 tablet by mouth daily LOVASTATIN 09924214927 No Longer Active Tesfaye Sherman MD Acti ve MELOXICAM 7.5 MG ORAL TABLET 1 tablet by mouth daily 2 MELOXICAM 68440722972 No Longer Active Tesfaye Sherman MD Acti ve GABAPENTIN 300 MG ORAL CAPSULE Take two tablets by mouth every e vening GABAPENTIN 19188962296 No Longer Active Edith Burch MD A ctive GABAPENTIN 300 MG ORAL CAPSULE Take two tablets by mouth every e vening GABAPENTIN 300 MG ORAL CAPSULE 763235 GABAPENTIN I nactive MELOXICAM 7.5 MG ORAL TABLET 1 tablet by mouth daily 2 MELOXICAM 7.5 MG ORAL TABLET 567667 MELOXICAM Inactive LOVASTATIN 20 MG ORAL TABLET Take 1 tablet by mouth daily LOVASTATIN 20 MG ORAL TABLET 313909 LOVASTATIN Inactive DIFLUCAN 150 MG ORAL TABLET 1 qd DIFLUCAN 150 MG ORAL TABLET 966267 FLUCONAZOLE Inactive VITAMIN D3 2000 UNIT ORAL TABLET 1 daily, for vitamin D deficien cy VITAMIN D3 2000 UNIT ORAL TABLET CHOLECALCIFEROL Inactive AMOXICILLIN 500 MG ORAL CAPSULE 1 cap by mouth three times a day AMOXICILLIN 500 MG ORAL CAPSULE 785057 AMOXICILLIN Inactive BACTRIM DS 800-160 MG ORAL TABLET 1 tab by mouth twice daily X 10 DAYS BACTRIM DS 800-160 MG ORAL TABLET 946025 TRIMETHOPRIM-SULFAMETHOXAZOLE Inactive TRIMETHOPRIM 100 MG ORAL TABLET 1/2 qd 7 TRIMETHOPRIM 100 MG ORAL TABLET 607445 TRIMETHOPRIM Inactive CETIRIZINE HCL 5 MG ORAL TABLET Take 1 tablet by mouth daily CETIRIZINE HCL 5 MG ORAL TABLET 5939471 CETIRIZINE HCL Inactive PRAMIPEXOLE DIHYDROCHLORIDE 0.125 MG ORAL TABLET take 1 tablet po qhs for restless leg syndrome. PRAMIPEXOLE DIHYD ROCHLORIDE 0.125 MG ORAL TABLET 866672 PRAMIPEXOLE DIHYDROCHLORIDE Inactive MIRTAZAPINE 15 MG ORAL TABLET 1/2 tab by mouth at bedtime. 03/13 MIRTAZAPINE 15 MG ORAL TABLET 884022 MIRTAZAPINE In active DIFLUCAN 100 MG ORAL TABLET 1 tablet by mouth daily X 3 DAYS 201 04/09/01 DIFLUCAN 100 MG ORAL TABLET 559782 FLUCONAZOLE Inac tive DIFLUCAN 100 MG ORAL TABLET 1 tablet by mouth every other da y for 2 doses DIFLUCAN 100 MG ORAL TABLET 018719 FLUCONAZOLE Inactive CEFTIN 250 MG ORAL TABLET 1 tablet twice daily x 7 days CEFTIN 250 MG ORAL TABLET CEFUROXIME AXETIL Inactive CYMBALTA 30 MG ORAL CAPSULE DELAYED RELEASE PARTICLES 1 cap by mouth daily with 60mg CYMBALTA 30 MG ORAL CAPSULE DELAYED RELEASE PARTICLES 588795 DULOXETINE HCL Inactive CYMBALTA 60 MG ORAL CAPSULE DELAYED RELEASE PARTICLES Take 1 tablet by mouth daily CYMBALTA 60 MG ORAL CAPSULE DELAYED RELEA SE PARTICLES 852925 DULOXETINE HCL Inactive FOSAMAX 70 MG ORAL TABLET 1 po qweek. Take 30min prio r to first food/drink. Avoid lying down x 1 hour. FOSAMAX 70 MG ORAL TA BLET 703390 ALENDRONATE SODIUM Inactive DIFLUCAN 100 MG ORAL TABLET 1 tablet by mouth daily 20 19/08/26 DIFLUCAN 100 MG ORAL TABLET [id number] FLUCONAZOLE Inactive PREDNISONE 20 MG ORAL TABLET 1 tab twice daily for 3 d ay, then one daily for three days PREDNISONE 20 MG ORAL TABLET 524414 PREDNIS ONE Inactive PROAIR HFA 108 (90 BASE) MCG/ACT INHALATION AEROSOL SO LUTION 1 puff every 6 hours as needed PROAIR HFA 108 (90 B ASE) MCG/ACT INHALATION AEROSOL SOLUTION ALBUTEROL SULFATE Inactive MECLIZINE HCL 25 MG ORAL TABLET one tab po qday prn dizziness 20 17/09/06 MECLIZINE HCL 25 MG ORAL TABLET 699604 MECLIZINE HCL Inactive PREDNISONE 20 MG ORAL TABLET 1 tablet by mouth twice d aily for 3 days, then 1 tablet daily for 3 days PREDNISONE 20 MG ORAL TA BLET 503222 PREDNISONE Inactive DIFLUCAN 100 MG ORAL TABLET 1 tablet by mouth daily 20 20/06/06 DIFLUCAN 100 MG ORAL TABLET [id number] FLUCONAZOLE Inactive REPHRESH PRO-B ORAL CAPSULE 1 tablet daily REPHRESH PRO-B ORAL CAPSULE LACTOBACILLUS Inactive RED YEAST RICE 600 MG ORAL CAPSULE 1 pill by mouth daily RED YEAST RICE 600 MG ORAL CAPSULE 753751 RED YEAST RICE EXTRACT In active SUDAFED 24 HOUR 240 MG ORAL TABLET EXTENDED RELEASE 24 HOUR 1 tab po daily SUDAFED 24 HOUR 240 MG ORAL TABLET EXTENDED RELEASE 24 HOUR PSEUDOEPHEDRINE HCL Inactive PRELIEF 340 (65-50) MG (CA-P) ORAL TABLET PRELIEF 340 (65-50) MG (CA-P) ORAL TABLET CALCIUM GLYCEROPHOSPHATE Inact trent DIFLUCAN 100 MG ORAL TABLET 1 tablet by mouth daily 19/02/09 DIFLUCAN 100 MG ORAL TABLET [id number] FLUCONAZOLE Inactive DIFLUCAN 100 MG ORAL TABLET 1 tablet by mouth daily 20 19/02/09 DIFLUCAN 100 MG ORAL TABLET 741187 FLUCONAZOLE Inactive VENLAFAXINE HCL 75 MG ORAL TABLET 1 am 1/2 at noon 201 07/07/09 VENLAFAXINE HCL 75 MG ORAL TABLET 378209 VENLAFAXINE HCL Inacti ve GABAPENTIN 300 MG ORAL CAPSULE 1 po daily GABAPENTIN 300 MG ORAL CAPSULE 866955 GABAPENTIN Inactive SUDAFED 12 HOUR 120 MG ORAL TABLET EXTENDED RELEASE 12 HOUR 1 pill twice daily if needed for congestion SUDAFED 12 HOUR 120 MG ORAL TABLET EXTENDED RELEASE 12 HOUR PSEUDOEPHEDRINE HCL Inactive AMITRIPTYLINE HCL 10 MG ORAL TABLET 1 tablet nightly by mout h for neuropathy AMITRIPTYLINE HCL 10 MG ORAL TABLET 006287 AMITRIPTYLINE HCL Inactive AMITRIPTYLINE HCL 50 MG ORAL TABLET 1 po q hs for sleep AMITRIPTYLINE HCL 50 MG ORAL TABLET 464659 AMITRIPTYLINE HCL Inac tive PREDNISONE 20 MG ORAL TABLET 1 tab twice daily for 3 d ay, then one daily for three days PREDNISONE 20 MG ORAL TABLET 953999 PREDNIS ONE Inactive ROPINIROLE HCL 0.25 MG ORAL TABLET 1 TAB PO Q HS 05/31 ROPINIROLE HCL 0.25 MG ORAL TABLET 322694 ROPINIROLE HCL Inact trent ROPINIROLE HCL 0.5 MG ORAL TABLET 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 ROPINIROLE HCL 0.5 MG ORAL TABLET 700281 ROPINIR OLE HCL Inactive ROPINIROLE HCL 1 MG ORAL TABLET 1 tab po q hs ROPINIROLE HCL 1 MG ORAL TABLET 149418 ROPINIROLE HCL Inactive ROPINIROLE HCL 2 MG ORAL TABLET 1 po at hs 7 ROPINIROLE HCL 2 MG ORAL TABLET 001216 ROPINIROLE HCL Inactive MIRAPEX 0.125 MG ORAL TABLET 1 po nightly MIRAPEX 0.125 MG ORAL TABLET 018118 PRAMIPEXOLE DIHYDROCHLORIDE Inactive MIRAPEX 0.25 MG ORAL TABLET 1 tablet by mouth at night for r estless leg MIRAPEX 0.25 MG ORAL TABLET 647838 PRAM IPEXOLE DIHYDROCHLORIDE Inactive HYDROXYZINE HCL 25 MG ORAL TABLET 1 tab po at HS prn sleep 08/02 HYDROXYZINE HCL 25 MG ORAL TABLET 574538 HYDROXYZINE HC L Inactive DIFLUCAN 100 MG ORAL TABLET 1 tablet by mouth daily 20 21/08/28 DIFLUCAN 100 MG ORAL TABLET [id number] FLUCONAZOLE Inactive BACLOFEN 10 MG ORAL TABLET Take one tablet by mouth three times a day BACLOFEN 10 MG ORAL TABLET 986974 BACLOFEN Inact trent PREDNISONE 20 MG ORAL TABLET 1 tab twice daily for 3 d ay, then one daily for three days PREDNISONE 20 MG ORAL TABLET 810823 PREDNIS ONE Inactive UNISOM SLEEPMELTS 25 MG ORAL TABLET DISINTEGRATING 1.5 po q hs UNISOM SLEEPMELTS 25 MG ORAL TABLET DISINTEGRATING DIPHENHYDRAMINE HCL (SLEEP) Inactive FISH OIL 1000 MG ORAL CAPSULE DELAYED RELEASE 1 pill b y mouth daily for cholesterol FISH OIL 1000 MG ORAL CAPSULE DE LAYED RELEASE OMEGA-3 FATTY ACIDS Inactive [facility] NIACIN FLUSH FREE 400-100 MG ORAL CAPSULE 1 daily [facility] NIACIN FLUSH FREE 400-100 MG ORAL CAPSULE NIACIN-INOSITOL Inactive BACTRIM DS 800-160 MG ORAL TABLET 1 tab by mouth twice daily 201 03/03/23 BACTRIM DS 800-160 MG ORAL TABLET 476476 TRIMETHOPRIM-SULFAMETHOXAZOLE Inactive ZITHROMAX 250 MG ORAL TABLET 2 po today, then 1 po q days 2-5 20 15/02/10 ZITHROMAX 250 MG ORAL TABLET 081997 AZITHROMYCIN [place] ctive BACTRIM DS 800-160 MG ORAL TABLET 1 tab by mouth twice daily 201 04/04/11 BACTRIM DS 800-160 MG ORAL TABLET 345916 TRIMETHOPRIM-SULFAMETHOXAZOLE Inactive BACTRIM DS 800-160 MG ORAL TABLET 1 tab by mouth twice daily 201 04/09/01 BACTRIM DS 800-160 MG ORAL TABLET 19830105 TRIMETHOPRIM-SULFAMETHOXAZOLE Inactive BACTRIM DS 800-160 MG ORAL TABLET 1 tab by mouth twice daily 201 04/13/17 BACTRIM DS 800-160 MG ORAL TABLET 19830105 TRIMETHOPRIM-SULFAMETHOXAZOLE Inactive DIFLUCAN 150 MG ORAL TABLET 1 tablet by mouth daily 20 18/09/20 DIFLUCAN 150 MG ORAL TABLET [id number] FLUCONAZOLE Inactive BACTRIM DS 800-160 MG ORAL TABLET 1 tab by mouth twice daily 201 05/04/15 BACTRIM DS 800-160 MG ORAL TABLET 19830105 TRIMETHOPRIM-SULFAMETHOXAZOLE Inactive BACTRIM DS 800-160 MG ORAL TABLET 1 tab by mouth twice daily 201 05/06/28 BACTRIM DS 800-160 MG ORAL TABLET 19830105 TRIMETHOPRIM-SULFAMETHOXAZOLE Inactive DIFLUCAN 100 MG ORAL TABLET 1 tablet by mouth daily 20 19/03/05 DIFLUCAN 100 MG ORAL TABLET [id number] FLUCONAZOLE Inactive BACTRIM DS 800-160 MG ORAL TABLET 1 tab by mouth twice daily 201 05/10/28 BACTRIM DS 800-160 MG ORAL TABLET 19830105 TRIMETHOPRIM-SULFAMETHOXAZOLE Inactive AMOXICILLIN 500 MG ORAL CAPSULE 1 cap by mouth three times a day AMOXICILLIN 500 MG ORAL CAPSULE 133434 AMOXICILLIN Inactive ZITHROMAX 250 MG ORAL TABLET 2 po today, then 1 po q days 2-5 20 20/04/28 ZITHROMAX 250 MG ORAL TABLET 478717 AZITHROMYCIN [facility] [facility] DIFLUCAN 100 MG ORAL TABLET 1 tablet by mouth daily 20 20/05/01 DIFLUCAN 100 MG ORAL TABLET [id number] FLUCONAZOLE Inactive BACTRIM DS 800-160 MG ORAL TABLET 1 tab by mouth twice daily 201 06/09/02 BACTRIM DS 800-160 MG ORAL TABLET 19830105 TRIMETHOPRIM-SULFAMETHOXAZOLE Inactive HYDROCHLOROTHIAZIDE 12.5 MG ORAL CAPSULE 1 pill by mough daily 2 HYDROCHLOROTHIAZIDE 12.5 MG ORAL CAPSULE [facility] LOROTHIAZIDE Inactive BACTRIM DS 800-160 MG ORAL TABLET 1 tab by mouth twice daily 201 07/08/06 BACTRIM DS 800-160 MG ORAL TABLET 899212 TRIMETHOPRIM-SULFAMETHOXAZOLE Inactive DIFLUCAN 100 MG ORAL TABLET 1 tablet by mouth daily 21/03/11 DIFLUCAN 100 MG ORAL TABLET [id number] FLUCONAZOLE Inactive ZITHROMAX 250 MG ORAL TABLET 2 po today, then 1 po q days 2-5 20 21/08/28 ZITHROMAX 250 MG ORAL TABLET 552090 AZITHROMYCIN [facility] FLUCONAZOLE 100 MG ORAL TABLET 1 by mouth daily for yeast infect ion FLUCONAZOLE 100 MG ORAL TABLET [id number] FLUCONAZOLE I nactive DIFLUCAN 100 MG ORAL TABLET 1 tablet by mouth daily 23/12/05 DIFLUCAN 100 MG ORAL TABLET [id number] FLUCONAZOLE Inactive Advance Directives Directive Description Start Date PERMISSION TO SHARE DISCUSSED WITH PATIENT -- NO DECISION MADE DISCUSED WITH PATIENT -- FULL CODE LIVING WILL ON FILE 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 Vital Signs Date Name Value Unit Range Description blood pressure, diastolic, repeated by physician 78 BP lyon blood pressure, diastolic 78 mm[Hg] BP lyon blood pressure, systolic, repeated by physician 118 BP sys blood pressure, systolic 118 mm[Hg] BP sys height E&M 62 [in_us] Bdy height pulse rate 85 /min Heart rate temperature E&M 98.2 [degF] Body temp erature weight E&M 137.50 [lb_av] Weight Measure d blood pressure, diastolic, repeated by physician 82 BP lyon blood pressure, diastolic 82 mm[Hg] BP lyon blood pressure, systolic, repeated by physician 134 BP sys blood pressure, systolic 134 mm[Hg] BP sys height E&M 62 [in_us] Bdy height pulse rate 96 /min Heart rate temperature E&M 98.2 [degF] Body temp erature weight E&M 137.50 [lb_av] Weight Measure d blood pressure, diastolic, repeated by physician 77 BP lyon blood pressure, diastolic 77 mm[Hg] BP lyon blood pressure, systolic, repeated by physician 129 BP sys blood pressure, systolic 129 mm[Hg] BP sys height E&M 62 [in_us] Bdy height pulse rate 92 /min Heart rate temperature E&M 98.6 [degF] Body temp erature weight E&M 135 [lb_av] Weight Measure d blood pressure, diastolic, repeated by physician 66 BP lyon blood pressure, diastolic 66 mm[Hg] BP lyon blood pressure, systolic, repeated by physician 118 BP sys blood pressure, systolic 118 mm[Hg] BP sys height E&M 62 [in_us] Bdy height pulse rate 93 /min Heart rate temperature E&M 98.4 [degF] Body temp erature weight E&M 129 [lb_av] Weight Measure d blood pressure, diastolic, repeated by physician 64 BP lyon blood pressure, diastolic 64 mm[Hg] BP lyon blood pressure, systolic, repeated by physician 117 BP sys blood pressure, systolic 117 mm[Hg] BP sys height E&M 62 [in_us] Bdy height pulse rate 76 /min Heart rate temperature E&M 98.3 [degF] Body temp erature weight E&M 125.50 [lb_av] Weight Measure d Diagnostic Results Date Name Value Unit Range Description Lab Report: Lipid Panel, Comp. Metabolic Panel, Magnesium - Chemistry cholesterol, serum 196 mg/dL 306-510 7382/07/30 triglyceride, serum, fasting 86 mg/dL 30-200 HDL cholesterol, serum 41 mg/dL 32-60 LDL cholesterol, serum 138 mg/dL 0-130 sodium, serum 140 mmol/L 307-799 3381/07/30 carbon dioxide, venous blood 28.6 mmol/L 21.0-32 .0 potassium, serum 4.6 mmol/L 3.5-5.2 chloride, serum 105 mmol/L 98-107 blood glucose 88 mg/dL 65-95 urea nitrogen, blood 15 mg/dL 7-18 creatinine, serum 0.71 mg/dL 0.60-1.30 Estimated Glomerular Filtration Rate (calc) 90 (?) mL/min/1.73m2 = OR > 60 mL/min alanine aminotransferase (SGPT), serum 18 U/L 12-78 aspartate aminotransferase (SGOT), serum 12 U/L 15-37 calcium, serum 9.6 mg/dL 8.5-10.1 bilirubin, serum, total 0.70 mg/dL 0.00-1.00 Lab Report: Lipid Panel, Comp. Metabolic Panel, Magnesium - Lab Alkaline phosphatase 81 50-136 Lab Report: UADIP W/MICRO, AUTO - Chemis try protein, total urine random Negative mg/dL Negative RBC, urine, dipstick 1+ Negative Lab Report: UADIP W/MICRO, AUTO - Urinal ysis urobilinogen, urine, semiquantitative (dipstick) 0.2 E .U./dL Normal leukocyte esterase, urine, by dipstick Negative Negative nitrite, urine, semiquantitative Negative Neg ative glucose, urine, semiquantitative Negative Neg ative ketones, urine, by test strip Negative Negati ve bilirubin, urine Negative Negative urine color Yellow Colorless;Lightyellow;St raw;Yellow appearance, urine Clear Clear specific gravity, urine 1.025 1.000-1.030 pH, urine, semiquantitative 5.0 5.0-8.5 Encounters Code Encounter Date Provider Facility CPT-13186 [id number] Vst-Est Level IV 10:36:10 C BRIDGET Sherman MD [facility] CPT-24454 [id number] Vst-Est Level IV 13:49:08 PLATE SHEAR OPERATOR Mendy Matute [facility] CPT-51868 [id number] Vst-Est Level IV 11:39:[address] Tesfaye Sherman MD [facility] CPT-59751 [id number] Vst-Est Level IV 14:08:03 C BRIDGET Sherman MD [facility] CPT-12542 Level 3 Est. Patient 18:06:36 CDT Tesfaye pearson MD [facility] CPT-98911 [id number] Vst-Est Level IV 17:09:34 C BRIDGET Sherman MD [facility] CPT-02683 Level 3 Est. Patient 17:27:08 CDT León hernandez APRN [facility] CPT-43068 [id number] Vst-Est Level IV 14:00:[address] Tesfaye Sherman MD [facility] CPT-71101 [id number] Vst-Est Level IV 19:27:[address] Tesfaye Sherman MD [facility] CPT-36002 [id number] Vst-Est Level IV 10:41:41 C BRIDGET Sherman MD [facility] CPT-10456 [id number] Vst-Est Level III 09:40:56 CDT Tesfaye Sherman MD [facility] CPT-75562 Level 4 Est. Patient 22:18:12 CDT Tesfaye pearson MD [facility] CPT-84659 Level 4 Est. Patient 14:44:33 PLATE SHEAR OPERATOR Tesfaye pearson MD [facility] CPT-45284 Level 4 Est. Patient 13:55:29 PLATE SHEAR OPERATOR Tesfaye pearson MD [facility] CPT-99718 Level 4 Est. Patient 17:07:34 PLATE SHEAR OPERATOR Tesfaye pearson MD [facility] CPT-20422 Level 4 Est. Patient 13:56:54 CDT Tesfaye pearson MD [facility] CPT-63932 Level 4 Est. Patient 13:24:25 CDT Chelsea Hardin yvon MERCADO [facility] CPT-91338 Level 4 Est. Patient 09:14:56 CDT Tesfaye pearson MD [facility]-03453 Level 4 Est. Patient 18:40:25 PLATE SHEAR OPERATOR Tesfaye pearson MD [facility]-61828 Level 4 Est. Patient 18:13:07 PLATE SHEAR OPERATOR Tesfaye pearson MD [facility] CPT-47274 Level 3 Est. Patient 10:46:32 CDT Rj cotto DO [facility] CPT-99231 Level 4 Est. Patient 20:19:25 CDT Tesfaye pearson MD [facility] CPT-69848 Level 3 Est. Patient 09:07:31 CDT Tesfaye pearson MD [facility] CPT-10877 Level 4 Est. Patient 13:12:56 CDT Tesfaye pearson MD [facility] CPT-48973 Level 4 Est. Patient 21:24:55 PLATE SHEAR OPERATOR eTsfaye pearson MD [facility] CPT-09336 Level 3 Est. Patient 13:45:04 PLATE SHEAR OPERATOR Tesfaye pearson MD [facility] CPT-80909 Level 4 Est. Patient 13:50:45 CDT Tesfaye pearson MD [facility] CPT-25634 Level 3 Est. Patient 10:16:10 CDT Tesfaye pearson MD [facility] CPT-80184 Level 3 Est. Patient 16:36:07 PLATE SHEAR OPERATOR Kayla jameson MD [facility] CPT-09031 Level 4 Est. Patient 16:00:14 PLATE SHEAR OPERATOR Tesfaye pearson MD [facility] CPT-40082 Level 4 Est. Patient 11:02:24 PLATE SHEAR OPERATOR Tesfaye pearson MD [facility] CPT-58697 Level 3 Est. Patient 20:21:43 PLATE SHEAR OPERATOR Kayla jameson MD [facility] CPT-21036 Level 3 Est. Patient 13:27:28 PLATE SHEAR OPERATOR Kayla jameson MD [facility] CPT-13823 Level 4 Est. Patient 15:57:17 PLATE SHEAR OPERATOR Tesfaye pearson MD [facility] CPT-83649 Level 3 New Patient 13:25:47 CDT Tesfaye kidd MD [facility] CPT-73534 Level 3 New Patient 17:22:21 CDT J John angel MD [facility] Procedures Code Procedure Name Date Entry Date Standard Desc ription CPT-G0439 Subsequent Annual Wellness Exam 11:25:51 CDT CPT-QY7660V ([id number] 2P) Patient Reason Influenza immu nization not administered 13:25:19 PLATE SHEAR OPERATOR CPT-01868 Bone Density - XRAY USE ONLY 15:21:33 CDT CPT-70547 Venipuncture Draw Fee 16:12:22 CDT CPT-G0439 Subsequent Annual Wellness Exam 18:06:36 CDT CPT-G0439 Subsequent Annual Wellness Exam 22:18:11 CDT CPT-21369 Bone Density - XRAY USE ONLY 11:43:58 CDT CPT-03942 Bone Density - XRAY USE ONLY 10:05:16 CDT 2 CPT-87821 Prv Med New Pt 40-64 yrs 18:19:25 CDT 2016 CPT-54793 Foot, right, comp min 3V - XRAY USE ONLY 10:38:34 CDT CPT-G0439 Subsequent Annual Wellness Exam 13:55:04 CDT CPT-G0438 Initial Annual Wellness Exam 11:23:17 CD T CPT-J2930 Solu Medrol 125 mg (Methyl Prednisolone Sodium Succinate) 17:29:12 PLATE SHEAR OPERATOR CPT-04455 Abx/Therapy Injection 17:29:11 PLATE SHEAR OPERATOR CPT-J2930 Solu Medrol 125 mg (Methyl Prednisolone Sodium Succinate) 12:34:38 PLATE SHEAR OPERATOR CPT-J3420 Vitamin B12 1000mcg (Cyanocobalamin) 09:12:55 CDT CPT-J3420 Vitamin B12 1000mcg (Cyanocobalamin) 16:28:06 PLATE SHEAR OPERATOR CPT-76143 Venipuncture Draw Fee 08:39:53 CDT CPT-J3420 Vitamin B12 1000mcg (Cyanocobalamin) 08:46:22 CDT CPT-19732 Abx/Therapy Injection 08:46:22 CDT CPT-J3420 Vitamin B12 1000mcg (Cyanocobalamin) 08:41:26 CDT CPT-22590 Abx/Therapy Injection 08:41:26 CDT CPT-J3420 Vitamin B12 1000mcg (Cyanocobalamin) 08:57:15 CDT CPT-88724 Abx/Therapy Injection 08:57:15 CDT CPT-J3420 Vitamin B12 1000mcg (Cyanocobalamin) 10:59:03 CDT CPT-11590 Abx/Therapy Injection 10:59:03 CDT CPT-J3420 Vitamin B12 1000mcg (Cyanocobalamin) 15:05:39 CDT CPT-03530 Abx/Therapy Injection 15:05:39 CDT CPT-J3420 Vitamin B12 1000mcg (Cyanocobalamin) 13:50:45 CDT CPT-J3420 Vitamin B12 1000mcg (Cyanocobalamin) 08:48:55 CDT CPT-14493 Abx/Therapy Injection 08:48:55 CDT CPT-J3420 Vitamin B12 1000mcg (Cyanocobalamin) 09:14:54 CDT CPT-45203 Abx/Therapy Injection 09:14:54 CDT CPT-J3420 Vitamin B12 1000mcg (Cyanocobalamin) 09:06:06 CDT CPT-15841 Abx/Therapy Injection 09:06:06 CDT CPT-J3420 Vitamin B12 1000mcg (Cyanocobalamin) 09:49:14 CDT CPT-77525 Abx/Therapy Injection 09:49:14 CDT CPT-J3420 Vitamin B12 1000mcg (Cyanocobalamin) 09:10:30 PLATE SHEAR OPERATOR CPT-79501 Abx/Therapy Injection 09:10:30 PLATE SHEAR OPERATOR CPT-J3420 Vitamin B12 1000mcg (Cyanocobalamin) 09:11:07 PLATE SHEAR OPERATOR CPT-25068 Abx/Therapy Injection 09:11:07 PLATE SHEAR OPERATOR CPT-J3420 Vitamin B12 1000mcg (Cyanocobalamin) 09:57:03 PLATE SHEAR OPERATOR CPT-74496 Abx/Therapy Injection 09:57:03 PLATE SHEAR OPERATOR CPT-J3420 Vitamin B12 1000mcg (Cyanocobalamin) 09:23:21 PLATE SHEAR OPERATOR CPT-29726 Abx/Therapy Injection 09:23:21 PLATE SHEAR OPERATOR CPT-55120 Urine Dip (Floor Use Only) 20:21:44 PLATE SHEAR OPERATOR 201 02/12/11 CPT-40113 UA Dip Auto (Floor Use Only) 10:04:39 PLATE SHEAR OPERATOR 2 CPT-05477 Urine Dip (Floor Use Only) 13:27:28 PLATE SHEAR OPERATOR 201 02/12/01 CPT-81667 Bladder Scan 13:27:28 PLATE SHEAR OPERATOR CPT-18707 Abd single AP View 14:30:51 PLATE SHEAR OPERATOR CPT-OV Office Visit 10:15:43 CDT CPT-83719 Urine Dip (Floor Use Only) 17:22:21 CDT 201 02/09/02 CPT-02834 Bladder Scan 17:22:21 CDT
--- OUTSIDE RECORDS SUMMARY | 2020-05-05 11:01 | XMS REPORT | Clinical Summary ---
Author Author Talon, Jeri Wood Organization [employer] Address Unknown Phone Unavailable Allergies, Adverse Reactions, [...] limb Foot pain, right 729.5 Resolved Tesfaye hSerman MD Pain in limb Joint pain 719.40 [...] MD Routine general medical examination at a [facility] acility Body Mass Index 21.0-21.9 Adult Refinement [...] Body Mass Index 20.0-20.9 Adult Resolved 2018 eTsfaye Sherman MD Body Mass Index between 19-24, adult Dysuria 788.1 Resolved Tesfaye Sherman MD Dysuria High risk meds residential use V58.6 Active Tesfaye Sherman MD Long-term (current) drug use Yeast infection 112.9 Inactive Tesfaye Sherman MD Candidiasis of unspecified site Upper respiratory infection 465.9 Inactive Tesfaye Sherman MD Acute upper respiratory infections of un specified site Lower extremity edema, bilateral 782.3 Active 201 07/07/09 León Kodi AERIAL APPLICATOR PILOT Edema Peripheral neuropathy 356.9 Active Tesfaye lamb MD Unspecified hereditary and idiopathic peripheral neuropathy Restless leg syndrome 333.94 Active Tesfaye lamb MD Restless legs syndrome (RLS) Overweight (BMI 25-29.9) Active Tesfaye pearson MD Overweight FH Depression ICD-V17.0 Inactive Tesfaye Sherman MD FH Diabetes ICD-V18.0 Inactive Tesfaye Sherman MD 20 22/12/06 WELL WOMAN EXAMINATION ICD-V72.31 Inactive Wilner Sherman MD Preventive health care ICD-V70.0 Inactive Wilner Sherman MD Sinusitis ICD-461.9 Inactive Tesfaye Owusu [...] Adult Eldon Shah RMA Dysuria ICD-788.1 Inactive Tesfaye Sherman MD 201 07/05/07 Yeast infection ICD-112.9 Inactive Tesfaye lamb MD Upper respiratory infection ICD-465.9 Inactive Tesfaye Sherman MD Medication List Medication Instructions Start Date Stop Date Generic Name NDC Status Provider Patient Instruction PRAMIPEXOLE DIHYDROCHLORIDE 0.75 MG ORAL TABLET take 1 tab po qhs for restless leg syndrome. PRAMIPEXOLE DIHYDROCHLORIDE [id number] Acti ve Tesfaye Sherman MD Active DIFLUCAN 100 MG ORAL TABLET 1 tablet by mouth daily 20 23/12/05 FLUCONAZOLE 19187156756 No Longer Active Tesfaye Sherman MD Acti ve [facility] NIACIN FLUSH FREE 400-100 MG ORAL CAPSULE 1 daily NIACIN-INOSITOL 23464829947 No Longer Active Tesfaye Sherman MD A ctive FISH OIL 1000 MG ORAL CAPSULE DELAYED RELEASE 1 pill b y mouth daily for cholesterol OMEGA-3 FATTY ACIDS 35002752907 No Longe r Active Tesfaye Sherman MD Active UNISOM SLEEPMELTS 25 MG ORAL TABLET DISINTEGRATING 1.5 po q hs DIPHENHYDRAMINE HCL (SLEEP) 29485900165 No Longer Active Venkata Sherman MD Active PREDNISONE 20 MG ORAL TABLET 1 tab twice daily for 3 d ay, then one daily for three days PREDNISONE 57367136227 No Longer Active Tesfaye Sherman MD Active BACLOFEN 10 MG ORAL TABLET Take one tablet by mouth three times a day BACLOFEN 83904190945 No Longer Active Tesfaye Sherman MD Active LIDOCAINE 4 % EXTERNAL CREAM Apply to back prn pain LIDOCAINE 03184450792 Active Tesfaye Sherman MD Active TIZANIDINE HCL 2 MG ORAL TABLET 2 Mg in the AM and 6mg q hs 07/05 TIZANIDINE HCL 72857131486 Active Tesfaye Sherman MD Active HYDROXYZINE HCL 25 MG TABS TAKE 1 TABLET BY MOUTH AT B EDTIME NEEDED FOR SLEEP HYDROXYZINE HCL 89591496165 Active JOSHUA Lindsay Active FLUCONAZOLE 100 MG ORAL TABLET 1 by mouth daily for yeast infect ion FLUCONAZOLE 09538358347 No Longer Active Laurence Dominguez Acti ve ZITHROMAX 250 MG ORAL TABLET 2 po today, then 1 po q days 2-5 20 21/08/28 AZITHROMYCIN 88447366464 No Longer Active Tesfaye Sherman MD Active DIFLUCAN 100 MG ORAL TABLET 1 tablet by mouth daily 20 21/08/28 FLUCONAZOLE 99333928885 No Longer Active Tesfaye Sherman MD Acti ve HYDROXYZINE HCL 25 MG ORAL TABLET 1 tab po at HS prn sleep 08/02 HYDROXYZINE HCL 41412098970 No Longer Active Tesfaye Sherman MD Active MIRAPEX 0.5 MG ORAL TABLET 1 tablet at night for restless leg. 2018 PRAMIPEXOLE DIHYDROCHLORIDE 48290147462 Active Laurenceyohana Dominguez Active MIRAPEX 0.25 MG ORAL TABLET 1 tablet by mouth at night for r estless leg PRAMIPEXOLE DIHYDROCHLORIDE 03062607381 No Longer Act trent Laurenceyohana Dominguez Active MIRAPEX 0.125 MG ORAL TABLET 1 po nightly PRAMIPEXOLE DIHYDROCHLORIDE 23553391068 No Longer Active Laurence Dominguez Active ROPINIROLE HCL 2 MG ORAL TABLET 1 po at hs ROPI NIROLE HCL 55433080767 No Longer Active Laurenceyohana Dominguez Active ROPINIROLE HCL 1 MG ORAL TABLET 1 tab po q hs ROPINIROLE HCL 43827057876 No Longer Active Laurence Dominguez Active ROPINIROLE HCL 0.5 MG ORAL TABLET 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 ROPINIROLE HCL 21362136178 No Longer Active MARCUS Panchal Active ROPINIROLE HCL 0.25 MG ORAL TABLET 1 TAB PO Q HS 05/31 ROPINIROLE HCL 79904370332 No Longer Active Tesfaye Sherman MD Ac tive PREDNISONE 20 MG ORAL TABLET 1 tab twice daily for 3 d ay, then one daily for three days PREDNISONE 28593532908 No Longer Active Tesfaye Sherman MD Active AMITRIPTYLINE HCL 50 MG ORAL TABLET 1 po q hs for sleep AMITRIPTYLINE HCL 31729143164 No Longer Active Tesfaye Sherman MD Active AMITRIPTYLINE HCL 10 MG ORAL TABLET 1 tablet nightly by mout h for neuropathy AMITRIPTYLINE HCL 36578189287 No Longer Active MARCUS Stapleton Active DIFLUCAN 100 MG ORAL TABLET 1 tablet by mouth daily 20 21/03/11 FLUCONAZOLE 42509411269 No Longer Active Tesfaye Sherman MD Acti ve BACTRIM DS 800-160 MG ORAL TABLET 1 tab by mouth twice daily 201 07/08/06 TRIMETHOPRIM-SULFAMETHOXAZOLE 94371526636 No Longer Active Umer Sherman MD Active CLARITIN 10 MG ORAL TABLET Take one by mouth daily LORATADINE 05243634202 Active Tesfaye Sherman MD Active SUDAFED 12 HOUR 120 MG ORAL TABLET EXTENDED RELEASE 12 HOUR 1 pill twice daily if needed for congestion PSEUDOEPHEDRINE HCL 573736774 13 No Longer Active Tesfaye Sherman MD Active FENOFIBRATE 145 MG ORAL TABLET 1 by mouth daily FENOFIBRATE 92114660972 Active Laurence Dominguez Active GABAPENTIN 300 MG ORAL CAPSULE 1 po daily GABAP ENTIN 90740056928 No Longer Active Tesfaye Sherman MD Active HYDROCHLOROTHIAZIDE 12.5 MG ORAL CAPSULE 1 pill by mough daily 2 HYDROCHLOROTHIAZIDE 85416864387 No Longer Active León Mariee APRN Active VENLAFAXINE HCL 75 MG ORAL TABLET 1 am 1/2 at noon 201 07/07/09 VENLAFAXINE HCL 80539125492 No Longer Active León Mariee APRN Act trent DIFLUCAN 100 MG ORAL TABLET 1 tablet by mouth daily 20 19/02/09 FLUCONAZOLE 92285911616 No Longer Active León Kodi AERIAL APPLICATOR PILOT Active DIFLUCAN 100 MG ORAL TABLET 1 tablet by mouth daily 20 19/02/09 FLUCONAZOLE 82935271197 No Longer Active León Mariee APRN Active OXYCODONE-ACETAMINOPHEN 5-325 MG ORAL TABLET Take one tablet by mouth every 6 hours 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 Use sparingly OXYCODONE-ACETAMINOPHEN 64530026345 Active Tesfaye villar MD Active CLONAZEPAM 0.5 MG ORAL TABLET Take 1/2 qam, and 1/2 qpm CLONAZEPAM 21683254611 Active Tesfaye Sherman MD Active PRELIEF 340 (65-50) MG (CA-P) ORAL TABLET CALCIUM GLYCEROPHOSPHATE 39436047617 No Longer Active Tesfaye Sherman MD Active SUDAFED 24 HOUR 240 MG ORAL TABLET EXTENDED RELEASE 24 HOUR 1 tab po daily PSEUDOEPHEDRINE HCL 97934163090 No Longer Active Raul Sherman MD Active RED YEAST RICE 600 MG ORAL CAPSULE 1 pill by mouth daily RED YEAST RICE EXTRACT 80830077526 No Longer Active Tesfaye Sherman MD Active REPHRESH PRO-B ORAL CAPSULE 1 tablet daily LACT OBACILLUS 51260215710 No Longer Active Tesfaye Sherman MD Active ABILIFY 2 MG ORAL TABLET 1 by mouth daily. MARIA ELENA PIPRAZOLE 35193876945 Active Tesfaye Sherman MD Active CYMBALTA 60 MG ORAL CAPSULE DELAYED RELEASE PARTICLES 1 cap by mouth daily for pain DULOXETINE HCL 93504287809 Active MARCUS Lindsay Active DIFLUCAN 100 MG ORAL TABLET 1 tablet by mouth daily 20 20/06/06 FLUCONAZOLE 01023506046 No Longer Active Tesfaye Sherman MD Acti ve PREDNISONE 20 MG ORAL TABLET 1 tablet by mouth twice d aily for 3 days, then 1 tablet daily for 3 days PREDNISONE 06398757864 No L onger Active Tesfaye Sherman MD Active BACTRIM DS 800-160 MG ORAL TABLET 1 tab by mouth twice daily 201 06/09/02 TRIMETHOPRIM-SULFAMETHOXAZOLE 53081923501 No Longer Active Fer Dominguez Active DIFLUCAN 100 MG ORAL TABLET 1 tablet by mouth daily 20 20/05/01 FLUCONAZOLE 76991120746 No Longer Active Tesfaye Sherman MD Acti ve ZITHROMAX 250 MG ORAL TABLET 2 po today, then 1 po q days 2-5 20 20/04/28 AZITHROMYCIN 65842683778 No Longer Active Tesfaye Sherman MD Active MECLIZINE HCL 25 MG ORAL TABLET one tab po qday prn dizziness 20 17/09/06 MECLIZINE HCL 26329698098 No Longer Active Tesfaye Sherman MD Active PROAIR HFA 108 (90 BASE) MCG/ACT INHALATION AEROSOL SO LUTION 1 puff every 6 hours as needed ALBUTEROL SULFATE 11972312705 No Long er Active Tesfaye Sherman MD Active PREDNISONE 20 MG ORAL TABLET 1 tab twice daily for 3 d ay, then one daily for three days PREDNISONE 39460591032 No Longer Active Tesfaye Sherman MD Active MECLIZINE HCL 25 MG ORAL TABLET one 4 times a day as needed for dizziness MECLIZINE HCL 70195196458 Active Tesfaye Sherman MD Active AMOXICILLIN 500 MG ORAL CAPSULE 1 cap by mouth three times a day AMOXICILLIN 39059105833 No Longer Active Laurence Dominguez Acti ve DIFLUCAN 100 MG ORAL TABLET 1 tablet by mouth daily 20 19/08/26 FLUCONAZOLE 72862481430 No Longer Active Tesfaye Sherman MD Acti ve BACTRIM DS 800-160 MG ORAL TABLET 1 tab by mouth twice daily 201 05/10/28 TRIMETHOPRIM-SULFAMETHOXAZOLE 44420594759 No Longer Active A mirna Dominguez Active FOSAMAX 70 MG ORAL TABLET 1 po qweek. Take 30min prio r to first food/drink. Avoid lying down x 1 hour. ALENDRONATE SODIUM 18524480 144 No Longer Active Laurence Lopezduyen Active CYMBALTA 60 MG ORAL CAPSULE DELAYED RELEASE PARTICLES Take 1 tablet by mouth daily DULOXETINE HCL 29101212311 No Longer Active Edith Burch MD Active CYMBALTA 30 MG ORAL CAPSULE DELAYED RELEASE PARTICLES 1 cap by mouth daily with 60mg DULOXETINE HCL 27798860942 No Longer Active Jordan Burch MD Active DIFLUCAN 100 MG ORAL TABLET 1 tablet by mouth daily 19/03/05 FLUCONAZOLE 49191337724 No Longer Active Tesfaye Sherman MD Acti ve BACTRIM DS 800-160 MG ORAL TABLET 1 tab by mouth twice daily 201 05/06/28 TRIMETHOPRIM-SULFAMETHOXAZOLE 12705411096 No Longer Active Umer Sherman MD Active BACTRIM DS 800-160 MG ORAL TABLET 1 tab by mouth twice daily 201 05/04/15 TRIMETHOPRIM-SULFAMETHOXAZOLE 44084004395 No Longer Active Umer Sherman MD Active DIFLUCAN 150 MG ORAL TABLET 1 tablet by mouth daily 20 18/09/20 FLUCONAZOLE 99600164642 No Longer Active Tesfaye Sherman MD Acti ve BACTRIM DS 800-160 MG ORAL TABLET 1 tab by mouth twice daily 201 04/13/17 TRIMETHOPRIM-SULFAMETHOXAZOLE 62666277563 No Longer Active Umer Sherman MD Active CEFTIN 250 MG ORAL TABLET 1 tablet twice daily x 7 days CEFUROXIME AXETIL 58194666467 No Longer Active Tesfaye Sherman MD Active DIFLUCAN 100 MG ORAL TABLET 1 tablet by mouth every other da y for 2 doses FLUCONAZOLE 58246623905 No Longer Active Tesfaye barron MD Active DIFLUCAN 100 MG ORAL TABLET 1 tablet by mouth daily X 3 DAYS 201 04/09/01 FLUCONAZOLE 92424543955 No Longer Active Rj Moss DO Ac tive MIRTAZAPINE 15 MG ORAL TABLET 1/2 tab by mouth at bedtime. 03/13 MIRTAZAPINE 29200071265 No Longer Active Tesfaye Sherman MD Active BACTRIM DS 800-160 MG ORAL TABLET 1 tab by mouth twice daily 201 04/09/01 TRIMETHOPRIM-SULFAMETHOXAZOLE 57762552566 No Longer Active Umer Sherman MD Active PRAMIPEXOLE DIHYDROCHLORIDE 0.125 MG ORAL TABLET take 1 tablet po qhs for restless leg syndrome. PRAMIPEXOLE DIHYDROCHLORI DE 89557872224 No Longer Active Tesfaye Sherman MD Active MAGNESIUM 400 MG ORAL TABLET 1 tab po daily MAGNE SIUM 11907526116 Active Chelsea Areyvon AERIAL APPLICATOR PILOT Active CETIRIZINE HCL 5 MG ORAL TABLET Take 1 tablet by mouth daily CETIRIZINE HCL 57289917853 No Longer Active Chelsea Arell AERIAL APPLICATOR PILOT Activ e TRIMETHOPRIM 100 MG ORAL TABLET 1/2 qd TRIM ETHOPRIM 73080667154 No Longer Active Chelsea Cardenas APRN Active BACTRIM DS 800-160 MG ORAL TABLET 1 tab by mouth twice daily 201 04/04/11 TRIMETHOPRIM-SULFAMETHOXAZOLE 36539147999 No Longer Active Umer Sherman MD Active BACTRIM DS 800-160 MG ORAL TABLET 1 tab by mouth twice daily X 10 DAYS TRIMETHOPRIM-SULFAMETHOXAZOLE 34554053958 No Longer Active Tesfaye Sherman MD Active AMOXICILLIN 500 MG ORAL CAPSULE 1 cap by mouth three times a day AMOXICILLIN 73823021375 No Longer Active Adriana Arredondo, MARCUS A ctive B-12 1000 MCG ORAL LOZENGE 1 tab po daily CYANO COBALAMIN 37542751214 Active Tesfaye Sherman MD Active VITAMIN D3 2000 UNIT ORAL TABLET 1 daily, for vitamin D deficien cy CHOLECALCIFEROL 66936128329 No Longer Active Tesfaye Sherman MD Active ZITHROMAX 250 MG ORAL TABLET 2 po today, then 1 po q days 2-5 20 15/02/10 AZITHROMYCIN 57866455309 No Longer Active Tesfaye Sherman MD Active BACTRIM DS 800-160 MG ORAL TABLET 1 tab by mouth twice daily 201 03/03/23 TRIMETHOPRIM-SULFAMETHOXAZOLE 89615907869 No Longer Active Umer Sherman MD Active DIFLUCAN 150 MG ORAL TABLET 1 qd FLUCONAZOL E 28989010395 No Longer Active Kayla Cooper MD Active FLUTICASONE PROPIONATE 50 MCG/ACT NASAL SUSPENSION 1 spray each nostril twice daily FLUTICASONE PROPIONATE 55423298960 Active D patricia Sherman MD Active LOVASTATIN 20 MG ORAL TABLET Take 1 tablet by mouth daily LOVASTATIN 07074801719 No Longer Active Tesfaye Sherman MD Acti ve MELOXICAM 7.5 MG ORAL TABLET 1 tablet by mouth daily 2 MELOXICAM 63445602703 No Longer Active Tesfaye Sherman MD Acti ve GABAPENTIN 300 MG ORAL CAPSULE Take two tablets by mouth every e vening GABAPENTIN 93832268998 No Longer Active Edith Burch MD A ctive GABAPENTIN 300 MG ORAL CAPSULE Take two tablets by mouth every e vening GABAPENTIN 300 MG ORAL CAPSULE 719052 GABAPENTIN I nactive MELOXICAM 7.5 MG ORAL TABLET 1 tablet by mouth daily 2 MELOXICAM 7.5 MG ORAL TABLET 358471 MELOXICAM Inactive LOVASTATIN 20 MG ORAL TABLET Take 1 tablet by mouth daily LOVASTATIN 20 MG ORAL TABLET 275529 LOVASTATIN Inactive DIFLUCAN 150 MG ORAL TABLET 1 qd DIFLUCAN 150 MG ORAL TABLET 209124 FLUCONAZOLE Inactive VITAMIN D3 2000 UNIT ORAL TABLET 1 daily, for vitamin D deficien cy VITAMIN D3 2000 UNIT ORAL TABLET CHOLECALCIFEROL Inactive AMOXICILLIN 500 MG ORAL CAPSULE 1 cap by mouth three times a day AMOXICILLIN 500 MG ORAL CAPSULE 514049 AMOXICILLIN Inactive BACTRIM DS 800-160 MG ORAL TABLET 1 tab by mouth twice daily X 10 DAYS BACTRIM DS 800-160 MG ORAL TABLET 912002 TRIMETHOPRIM-SULFAMETHOXAZOLE Inactive TRIMETHOPRIM 100 MG ORAL TABLET 1/2 qd 7 TRIMETHOPRIM 100 MG ORAL TABLET 206453 TRIMETHOPRIM Inactive CETIRIZINE HCL 5 MG ORAL TABLET Take 1 tablet by mouth daily CETIRIZINE HCL 5 MG ORAL TABLET 2657489 CETIRIZINE HCL Inactive PRAMIPEXOLE DIHYDROCHLORIDE 0.125 MG ORAL TABLET take 1 tablet po qhs for restless leg syndrome. PRAMIPEXOLE DIHYD ROCHLORIDE 0.125 MG ORAL TABLET 551350 PRAMIPEXOLE DIHYDROCHLORIDE Inactive MIRTAZAPINE 15 MG ORAL TABLET 1/2 tab by mouth at bedtime. 03/13 MIRTAZAPINE 15 MG ORAL TABLET 452072 MIRTAZAPINE In active DIFLUCAN 100 MG ORAL TABLET 1 tablet by mouth daily X 3 DAYS 201 04/09/01 DIFLUCAN 100 MG ORAL TABLET 112180 FLUCONAZOLE Inac tive DIFLUCAN 100 MG ORAL TABLET 1 tablet by mouth every other da y for 2 doses DIFLUCAN 100 MG ORAL TABLET 995336 FLUCONAZOLE Inactive CEFTIN 250 MG ORAL TABLET 1 tablet twice daily x 7 days CEFTIN 250 MG ORAL TABLET CEFUROXIME AXETIL Inactive CYMBALTA 30 MG ORAL CAPSULE DELAYED RELEASE PARTICLES 1 cap by mouth daily with 60mg CYMBALTA 30 MG ORAL CAPSULE DELAYED RELEASE PARTICLES 673009 DULOXETINE HCL Inactive CYMBALTA 60 MG ORAL CAPSULE DELAYED RELEASE PARTICLES Take 1 tablet by mouth daily CYMBALTA 60 MG ORAL CAPSULE DELAYED RELEA SE PARTICLES 652718 DULOXETINE HCL Inactive FOSAMAX 70 MG ORAL TABLET 1 po qweek. Take 30min prio r to first food/drink. Avoid lying down x 1 hour. FOSAMAX 70 MG ORAL TA BLET 299980 ALENDRONATE SODIUM Inactive DIFLUCAN 100 MG ORAL TABLET 1 tablet by mouth daily 20 19/08/26 DIFLUCAN 100 MG ORAL TABLET 19760711 FLUCONAZOLE Inactive PREDNISONE 20 MG ORAL TABLET 1 tab twice daily for 3 d ay, then one daily for three days PREDNISONE 20 MG ORAL TABLET 374529 PREDNIS ONE Inactive PROAIR HFA 108 (90 BASE) MCG/ACT INHALATION AEROSOL SO LUTION 1 puff every 6 hours as needed PROAIR HFA 108 (90 B ASE) MCG/ACT INHALATION AEROSOL SOLUTION ALBUTEROL SULFATE Inactive MECLIZINE HCL 25 MG ORAL TABLET one tab po qday prn dizziness 20 17/09/06 MECLIZINE HCL 25 MG ORAL TABLET 804852 MECLIZINE HCL Inactive PREDNISONE 20 MG ORAL TABLET 1 tablet by mouth twice d aily for 3 days, then 1 tablet daily for 3 days PREDNISONE 20 MG ORAL TA BLET 018576 PREDNISONE Inactive DIFLUCAN 100 MG ORAL TABLET 1 tablet by mouth daily 20 20/06/06 DIFLUCAN 100 MG ORAL TABLET 19760711 FLUCONAZOLE Inactive REPHRESH PRO-B ORAL CAPSULE 1 tablet daily REPHRESH PRO-B ORAL CAPSULE LACTOBACILLUS Inactive RED YEAST RICE 600 MG ORAL CAPSULE 1 pill by mouth daily RED YEAST RICE 600 MG ORAL CAPSULE 036525 RED YEAST RICE EXTRACT In active SUDAFED [...] 20 19/02/09 DIFLUCAN 100 MG ORAL TABLET 240523 FLUCONAZOLE Inactive VENLAFAXINE HCL 75 MG ORAL TABLET 1 am 1/2 at noon 201 07/07/09 VENLAFAXINE HCL 75 MG ORAL TABLET 233328 VENLAFAXINE HCL Inacti ve GABAPENTIN 300 MG ORAL CAPSULE 1 po daily GABAPENTIN 300 MG ORAL CAPSULE 543035 GABAPENTIN Inactive SUDAFED 12 HOUR 120 MG ORAL TABLET EXTENDED RELEASE 12 HOUR 1 pill twice daily if needed for congestion SUDAFED 12 HOUR 120 MG ORAL TABLET EXTENDED RELEASE 12 HOUR PSEUDOEPHEDRINE HCL Inactive AMITRIPTYLINE HCL 10 MG ORAL TABLET 1 tablet nightly by mout h for neuropathy AMITRIPTYLINE HCL 10 MG ORAL TABLET 492158 AMITRIPTYLINE HCL Inactive AMITRIPTYLINE HCL 50 MG ORAL TABLET 1 po q hs for sleep AMITRIPTYLINE HCL 50 MG ORAL TABLET 168210 AMITRIPTYLINE HCL Inac tive PREDNISONE 20 MG ORAL TABLET 1 tab twice daily for 3 d ay, then one daily for three days PREDNISONE 20 MG ORAL TABLET 756668 PREDNIS ONE Inactive ROPINIROLE HCL 0.25 MG ORAL TABLET 1 TAB PO Q HS 05/31 ROPINIROLE HCL 0.25 MG ORAL TABLET 277566 ROPINIROLE HCL Inact trent ROPINIROLE HCL 0.5 MG ORAL TABLET 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 ROPINIROLE HCL 0.5 MG ORAL TABLET 892613 ROPINIR OLE HCL Inactive ROPINIROLE HCL 1 MG ORAL TABLET 1 tab po q hs ROPINIROLE HCL 1 MG ORAL TABLET 259373 ROPINIROLE HCL Inactive ROPINIROLE HCL 2 MG ORAL TABLET 1 po at hs 7 ROPINIROLE HCL 2 MG ORAL TABLET 313208 ROPINIROLE HCL Inactive MIRAPEX 0.125 MG ORAL TABLET 1 po nightly MIRAPEX 0.125 MG ORAL TABLET 248355 PRAMIPEXOLE DIHYDROCHLORIDE Inactive MIRAPEX 0.25 MG ORAL TABLET 1 tablet by mouth at night for r estless leg MIRAPEX 0.25 MG ORAL TABLET 052032 PRAM IPEXOLE DIHYDROCHLORIDE Inactive HYDROXYZINE HCL 25 MG ORAL TABLET 1 tab po at HS prn sleep 08/02 HYDROXYZINE HCL 25 MG ORAL TABLET 198611 HYDROXYZINE HC L Inactive DIFLUCAN 100 MG ORAL TABLET 1 tablet by mouth daily 20 21/08/28 DIFLUCAN 100 MG ORAL TABLET 773249 FLUCONAZOLE Inactive BACLOFEN 10 MG ORAL TABLET Take one tablet by mouth three times a day BACLOFEN 10 MG ORAL TABLET 958830 BACLOFEN Inact trent PREDNISONE 20 MG ORAL TABLET 1 tab twice daily for 3 d ay, then one daily for three days PREDNISONE 20 MG ORAL TABLET 142125 PREDNIS ONE Inactive UNISOM SLEEPMELTS 25 MG [...] 03/03/23 BACTRIM DS 800-160 MG ORAL TABLET 115851 TRIMETHOPRIM-SULFAMETHOXAZOLE Inactive ZITHROMAX 250 MG ORAL TABLET 2 po today, then 1 po q days 2-5 20 15/02/10 ZITHROMAX 250 MG ORAL TABLET 473722 AZITHROMYCIN Ione ctive BACTRIM DS 800-160 MG ORAL TABLET 1 tab by mouth twice daily 201 04/04/11 BACTRIM DS 800-160 MG ORAL TABLET 941707 TRIMETHOPRIM-SULFAMETHOXAZOLE Inactive BACTRIM DS 800-160 MG ORAL [...] a day AMOXICILLIN 500 MG ORAL CAPSULE 673858 AMOXICILLIN Inactive ZITHROMAX 250 MG ORAL TABLET 2 po today, then 1 po q days 2-5 20 20/04/28 ZITHROMAX 250 MG ORAL TABLET 269846 AZITHROMYCIN Mayela ctive DIFLUCAN 100 MG ORAL TABLET 1 tablet by mouth daily 20 20/05/01 DIFLUCAN 100 MG ORAL TABLET 19760711 FLUCONAZOLE Inactive BACTRIM DS 800-160 MG ORAL TABLET 1 tab by mouth twice daily 201 06/09/02 BACTRIM DS 800-160 MG ORAL TABLET 19830105 TRIMETHOPRIM-SULFAMETHOXAZOLE Inactive HYDROCHLOROTHIAZIDE 12.5 MG ORAL CAPSULE 1 pill by mough daily 2 HYDROCHLOROTHIAZIDE 12.5 MG ORAL CAPSULE [facility] LOROTHIAZIDE Inactive BACTRIM DS 800-160 MG ORAL TABLET 1 tab by mouth twice daily 201 07/08/06 BACTRIM DS 800-160 MG ORAL TABLET 593927 TRIMETHOPRIM-SULFAMETHOXAZOLE Inactive DIFLUCAN 100 MG ORAL TABLET 1 tablet by mouth daily 21/03/11 DIFLUCAN 100 MG ORAL TABLET 19760711 FLUCONAZOLE Inactive ZITHROMAX 250 MG ORAL TABLET 2 po today, then 1 po q days 2-5 20 21/08/28 ZITHROMAX 250 MG ORAL TABLET 553934 AZITHROMYCIN Mayela ctive FLUCONAZOLE 100 MG ORAL [...] LIVING WILL ON FILE DURABLE POWER OF BROKERAGE PURCHASE AND SALE CLERK FOR HEALTHCARE Vital Signs Date Name Value Unit Range Description blood pressure, diastolic, repeated by physician 82 [...] weight E&M 125.50 [lb_av] Weight Measure d blood pressure, diastolic 73 mm[Hg] BP lyon blood pressure, systolic 113 mm[Hg] BP sys height E&M 62 [in_us] Bdy height pulse rate 93 /min Heart rate temperature E&M 99.4 [degF] Body temp erature weight E&M 125 [lb_av] Weight Measure d Diagnostic Results Date Name Value Unit Range Description Lab Report: Lipid Panel, Comp. Metabolic Panel, Magnesium - Chemistry cholesterol, serum 196 mg/dL 339-161 5038/07/30 triglyceride, serum, fasting 86 mg/dL 30-200 HDL cholesterol, serum 41 mg/dL 32-60 LDL cholesterol, serum 138 mg/dL 0-130 sodium, serum 140 mmol/L 125-205 2023/07/30 carbon dioxide, venous blood 28.6 mmol/L 21.0-32 [...] 5.0-8.5 Encounters Code Encounter Date Provider Facility CPT-66641 [id number] Vst-Est Level IV 10:36:10 C [facility] CPT-97075 [id number] Vst-Est Level IV 13:49:08 GENERAL ACCOUNTING MANAGER Mendyeh Stovallord [facility] CPT-22698 [id number] Vst-Est Level IV 11:39:[address] Tesfaye Sherman MD [facility] CPT-80601 [id number] Vst-Est Level IV 14:08:03 C BRIDGET Sherman MD [facility] CPT-93731 Level 3 Est. Patient 18:06:36 CDT Tesfaye pearson MD [facility] CPT-33406 [id number] Vst-Est Level IV 17:09:34 C BR[facility]GET Sherman MD [facility] CPT-19162 Level 3 Est. Patient 17:27:08 CDT León hernandez APRN [facility] CPT-48600 [id number] Vst-Est Level IV 14:00:[address] Tesfaye Sherman MD [facility] CPT-56413 [id number] Vst-Est Level IV 19:27:[address] Tesfaye Sherman MD [facility] CPT-39554 18645-Cvw Vst-Est Level IV 10:41:41 C BRIDGET Sherman MD [facility] CPT-02159 [id number] Vst-Est Level III 09:40:56 CDT Tesfaye Sherman MD [facility] CPT-75565 Level 4 Est. Patient 22:18:12 CDT Tesfaye pearson MD [facility] CPT-39381 Level 4 Est. Patient 14:44:33 GENERAL ACCOUNTING MANAGER Tesfaye pearson MD [facility] CPT-61903 Level 4 Est. Patient 13:55:29 GENERAL ACCOUNTING MANAGER Tesfaye pearson MD [facility] CPT-96314 Level 4 Est. Patient 17:07:34 GENERAL ACCOUNTING MANAGER Tesfaye pearson MD [facility] CPT-93742 Level 4 Est. Patient 13:56:54 CDT Tesfaye pearson MD [facility]-81912 Level 4 Est. Patient 13:24:25 CDT Chelsea sanz APRN [facility] CPT-62114 Level 4 Est. Patient 09:14:56 CDT Tesfaye pearson MD [facility]-95136 Level 4 Est. Patient 18:40:25 GENERAL ACCOUNTING MANAGER Tesfaye pearson MD [facility]-33875 Level 4 Est. Patient 18:13:07 GENERAL ACCOUNTING MANAGER Tesfaye pearson MD [facility]-80889 Level 3 Est. Patient 10:46:32 CDT Rj cotto DO [facility] CPT-81597 Level 4 Est. Patient 20:19:25 CDT Tesfaye pearson MD [facility]-11040 Level 3 Est. Patient 09:07:31 CDT Tesfaye pearson MD [facility]-42633 Level 4 Est. Patient 13:12:56 CDT Tesfaye pearson MD [facility]-94289 Level 4 Est. Patient 21:24:55 GENERAL ACCOUNTING MANAGER Tesfaye pearson MD [facility]-14550 Level 3 Est. Patient 13:45:04 GENERAL ACCOUNTING MANAGER Tesfaye pearson MD [facility] CPT-52504 Level 4 Est. Patient 13:50:45 CDT Tesfaye pearson MD [facility] CPT-68905 Level 3 Est. Patient 10:16:10 CDT Tesfaye pearson MD [facility] CPT-77876 Level 3 Est. Patient 16:36:07 GENERAL ACCOUNTING MANAGER Kayla jameson MD [facility]-71663 Level 4 Est. Patient 16:00:14 GENERAL ACCOUNTING MANAGER Tesfaye pearson MD [facility] CPT-85031 Level 4 Est. Patient 11:02:24 GENERAL ACCOUNTING MANAGER Tesfaye pearson MD [facility] CPT-63599 Level 3 Est. Patient 20:21:43 GENERAL ACCOUNTING MANAGER Kayla jameson MD [facility] CPT-18064 Level 3 Est. Patient 13:27:28 GENERAL ACCOUNTING MANAGER Kayla jameson MD [facility] CPT-55762 Level 4 Est. Patient 15:57:17 GENERAL ACCOUNTING MANAGER Tesfaye pearson MD [facility] CPT-75416 Level 3 New Patient 13:25:47 CDT Tesfaye kidd MD [facility] CPT-85190 Level 3 New Patient 17:22:21 CDT J John angel [facility] Procedures Code Procedure Name Date Entry Date Standard Desc ription [id number] (4274F 2P) Patient Reason Influenza immu nization not administered 13:25:19 GENERAL ACCOUNTING MANAGER CPT-82689 Bone Density - XRAY USE ONLY 15:21:33 CDT 2 CPT-44958 Venipuncture Draw Fee 16:12:22 CDT CPT-G0439 Subsequent Annual Wellness Exam 18:06:36 CDT CPT-G0439 Subsequent Annual Wellness Exam 22:18:11 CDT CPT-10874 Bone Density - XRAY USE ONLY 11:43:58 CDT CPT-29325 Bone Density - XRAY USE ONLY 10:05:16 CDT 2 CPT-48470 Prv Med New Pt 40-64 yrs 18:19:25 CDT 2016 CPT-25449 Foot, right, comp min 3V - XRAY USE ONLY 10:38:34 CDT CPT-G0439 Subsequent Annual Wellness Exam 13:55:04 CDT CPT-G0438 Initial Annual Wellness Exam 11:23:17 CD T CPT-J2930 Solu Medrol 125 mg (Methyl Prednisolone Sodium Succinate) 17:29:12 GENERAL ACCOUNTING MANAGER CPT-53560 Abx/Therapy Injection 17:29:11 GENERAL ACCOUNTING MANAGER CPT-J2930 Solu Medrol 125 mg (Methyl Prednisolone Sodium Succinate) 12:34:38 GENERAL ACCOUNTING MANAGER CPT-J3420 Vitamin B12 1000mcg (Cyanocobalamin) 09:12:55 CDT CPT-J3420 Vitamin B12 1000mcg (Cyanocobalamin) 16:28:06 GENERAL ACCOUNTING MANAGER CPT-42284 Venipuncture Draw Fee 08:39:53 CDT CPT-J3420 Vitamin B12 1000mcg (Cyanocobalamin) 08:46:22 CDT CPT-64484 Abx/Therapy Injection 08:46:22 CDT CPT-J3420 Vitamin B12 1000mcg (Cyanocobalamin) 08:41:26 CDT CPT-54638 Abx/Therapy Injection 08:41:26 CDT CPT-J3420 Vitamin B12 1000mcg (Cyanocobalamin) 08:57:15 CDT CPT-91110 Abx/Therapy Injection 08:57:15 CDT CPT-J3420 Vitamin B12 1000mcg (Cyanocobalamin) 10:59:03 CDT CPT-62121 Abx/Therapy Injection 10:59:03 CDT CPT-J3420 Vitamin B12 1000mcg (Cyanocobalamin) 15:05:39 CDT CPT-92252 Abx/Therapy Injection 15:05:39 CDT CPT-J3420 Vitamin B12 1000mcg (Cyanocobalamin) 13:50:45 CDT CPT-J3420 Vitamin B12 1000mcg (Cyanocobalamin) 08:48:55 CDT CPT-86908 Abx/Therapy Injection 08:48:55 CDT CPT-J3420 Vitamin B12 1000mcg (Cyanocobalamin) 09:14:54 CDT CPT-30091 Abx/Therapy Injection 09:14:54 CDT CPT-J3420 Vitamin B12 1000mcg (Cyanocobalamin) 09:06:06 CDT CPT-21515 Abx/Therapy Injection 09:06:06 CDT CPT-J3420 Vitamin B12 1000mcg (Cyanocobalamin) 09:49:14 CDT CPT-86988 Abx/Therapy Injection 09:49:14 CDT CPT-J3420 Vitamin B12 1000mcg (Cyanocobalamin) 09:10:30 GENERAL ACCOUNTING MANAGER CPT-07742 Abx/Therapy Injection 09:10:30 GENERAL ACCOUNTING MANAGER CPT-J3420 Vitamin B12 1000mcg (Cyanocobalamin) 09:11:07 GENERAL ACCOUNTING MANAGER CPT-98590 Abx/Therapy Injection 09:11:07 GENERAL ACCOUNTING MANAGER CPT-J3420 Vitamin B12 1000mcg (Cyanocobalamin) 09:57:03 GENERAL ACCOUNTING MANAGER CPT-99749 Abx/Therapy Injection 09:57:03 GENERAL ACCOUNTING MANAGER CPT-J3420 Vitamin B12 1000mcg (Cyanocobalamin) 09:23:21 GENERAL ACCOUNTING MANAGER CPT-32753 Abx/Therapy Injection 09:23:21 GENERAL ACCOUNTING MANAGER CPT-91240 Urine Dip (Floor Use Only) 20:21:44 GENERAL ACCOUNTING MANAGER 201 02/12/11 CPT-21930 UA Dip Auto (Floor Use Only) 10:04:39 GENERAL ACCOUNTING MANAGER 2 CPT-25547 Urine Dip (Floor Use Only) 13:27:28 GENERAL ACCOUNTING MANAGER 201 02/12/01 CPT-22395 Bladder Scan 13:27:28 GENERAL ACCOUNTING MANAGER CPT-69895 Abd single AP View 14:30:51 GENERAL ACCOUNTING MANAGER CPT-OV Office Visit 10:15:43 CDT CPT-63663 Urine Dip (Floor Use Only) 17:22:21 CDT 201 02/09/02 CPT-89723 Bladder Scan 17:22:21 CDT
--- OUTSIDE RECORDS SUMMARY | 2020-05-05 11:01 | XMS REPORT | Clinical Summary ---
Author Author Tlaon, Jeri Wood Organization [employer] Address Unknown Phone Unavailable Allergies, Adverse Reactions, [...] Sherman MD Routine general medical examination at [facility] acility Sinusitis 461.9 Resolved Tesfaye Sherman MD [...] episode, unspecified degree URI 465.9 Active Tesfaye Sheramn MD Acute upper respiratory infections of unspecified site Osteopenia 733.90 Active Tesfaye Sherman MD Disorder of bone and cartilage, unspecified Preventive health care V70.0 Resolved Tesfaye Sherman MD Routine general medical examination at a [facility] acility Body Mass Index 21.0-21.9 Adult [...] bilateral 782.3 Active 201 07/07/09 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 PRAMIPEXOLE DIHYDROCHLORIDE [id number] Acti ve Tesfaye Sherman MD Active DIFLUCAN 100 MG ORAL TABLET 1 tablet by mouth daily 20 23/12/05 FLUCONAZOLE 62909274661 No Longer Active Tesfaye Sherman MD Acti ve [facility] NIACIN FLUSH FREE 400-100 MG ORAL CAPSULE 1 daily NIACIN-INOSITOL 77389868185 No Longer Active Tesfaye Sherman MD A ctive FISH OIL 1000 MG ORAL CAPSULE DELAYED RELEASE 1 pill b y mouth daily for cholesterol OMEGA-3 FATTY ACIDS 66983413656 No Longe r Active Tesfaye Sherman MD Active UNISOM SLEEPMELTS 25 MG ORAL TABLET DISINTEGRATING 1.5 po q hs DIPHENHYDRAMINE HCL (SLEEP) 97918289794 No Longer Active Venkata Sherman MD Active PREDNISONE 20 MG ORAL TABLET 1 tab twice daily for 3 d ay, then one daily for three days PREDNISONE 29881736098 No Longer Active Tesfaye Sherman MD Active BACLOFEN 10 MG ORAL TABLET Take one tablet by mouth three times a day BACLOFEN 41750061784 No Longer Active Tesfaye Sherman MD Active LIDOCAINE 4 % EXTERNAL CREAM Apply to back prn pain LIDOCAINE 67275919575 Active Tesfaye Sherman MD Active TIZANIDINE HCL 2 MG ORAL TABLET 2 Mg in the AM and 6mg q hs 07/05 TIZANIDINE HCL 96730417014 Active Tesfaye Sherman MD Active HYDROXYZINE HCL 25 MG TABS TAKE 1 TABLET BY MOUTH AT B EDTIME NEEDED FOR SLEEP HYDROXYZINE HCL 27052168029 Active JOSHUA Lindsay Active FLUCONAZOLE 100 MG ORAL TABLET 1 by mouth daily for yeast infect ion FLUCONAZOLE 04802962947 No Longer Active Laurence Dominguez Acti ve ZITHROMAX 250 MG ORAL TABLET 2 po today, then 1 po q days 2-5 20 21/08/28 AZITHROMYCIN 54749991176 No Longer Active Tesfaye Sherman MD Active DIFLUCAN 100 MG ORAL TABLET 1 tablet by mouth daily 20 21/08/28 FLUCONAZOLE 04871923468 No Longer Active Tesfaye Sherman MD Acti ve HYDROXYZINE HCL 25 MG ORAL TABLET 1 tab po at HS prn sleep 08/02 HYDROXYZINE HCL 52538249888 No Longer Active Tesfaye Sherman MD Active MIRAPEX 0.5 MG ORAL TABLET 1 tablet at night for restless leg. 2018 PRAMIPEXOLE DIHYDROCHLORIDE 76204723072 Active Laurenceyohana Dominguez Active MIRAPEX 0.25 MG ORAL TABLET 1 tablet by mouth at night for r estless leg PRAMIPEXOLE DIHYDROCHLORIDE 37315188482 No Longer Act trent Laurenceyohana Dominguez Active MIRAPEX 0.125 MG ORAL TABLET 1 po nightly PRAMIPEXOLE DIHYDROCHLORIDE 57947579699 No Longer Active Laurence Dominguez Active ROPINIROLE HCL 2 MG ORAL TABLET 1 po at hs ROPI NIROLE HCL 11861018223 No Longer Active Laurenceyohana Dominguez Active ROPINIROLE HCL 1 MG ORAL TABLET 1 tab po q hs ROPINIROLE HCL 79418286713 No Longer Active Laurence Dominguez Active ROPINIROLE HCL 0.5 MG ORAL TABLET 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 ROPINIROLE HCL 83709221374 No Longer Active MARCUS Panchal Active ROPINIROLE HCL 0.25 MG ORAL TABLET 1 TAB PO Q HS 05/31 ROPINIROLE HCL 84700643885 No Longer Active Tesfaye Sherman MD Ac tive PREDNISONE 20 MG ORAL TABLET 1 tab twice daily for 3 d ay, then one daily for three days PREDNISONE 82864656649 No Longer Active Tesfaye Sherman MD Active AMITRIPTYLINE HCL 50 MG ORAL TABLET 1 po q hs for sleep AMITRIPTYLINE HCL 22026724545 No Longer Active Tesfaye Sherman MD Active AMITRIPTYLINE HCL 10 MG ORAL TABLET 1 tablet nightly by mout h for neuropathy AMITRIPTYLINE HCL 49080824181 No Longer Active MARCUS Stapleton Active DIFLUCAN 100 MG ORAL TABLET 1 tablet by mouth daily 20 21/03/11 FLUCONAZOLE 78004064150 No Longer Active Tesfaye Sherman MD Acti ve BACTRIM DS 800-160 MG ORAL TABLET 1 tab by mouth twice daily 201 07/08/06 TRIMETHOPRIM-SULFAMETHOXAZOLE 25398268304 No Longer Active Umer Sherman MD Active CLARITIN 10 MG ORAL TABLET Take one by mouth daily LORATADINE 54440175285 Active Tesfaye Sherman MD Active SUDAFED 12 HOUR 120 MG ORAL TABLET EXTENDED RELEASE 12 HOUR 1 pill twice daily if needed for congestion PSEUDOEPHEDRINE HCL 834880778 13 No Longer Active Tesfaye Sherman MD Active FENOFIBRATE 145 MG ORAL TABLET 1 by mouth daily FENOFIBRATE 46068421492 Active Laurence Dominguez Active GABAPENTIN 300 MG ORAL CAPSULE 1 po daily GABAP ENTIN 83045360347 No Longer Active Tesfaye Sherman MD Active HYDROCHLOROTHIAZIDE 12.5 MG ORAL CAPSULE 1 pill by mough daily 2 HYDROCHLOROTHIAZIDE 73401499563 No Longer Active León Mariee APRN Active VENLAFAXINE HCL 75 MG ORAL TABLET 1 am 1/2 at noon 201 07/07/09 VENLAFAXINE HCL 67976705171 No Longer Active León Mariee APRN Act trent DIFLUCAN 100 MG ORAL TABLET 1 tablet by mouth daily 20 19/02/09 FLUCONAZOLE 53856467046 No Longer Active León Kodi INSPECTION MACHINE TENDER Active DIFLUCAN 100 MG ORAL TABLET 1 tablet by mouth daily 20 19/02/09 FLUCONAZOLE 70899854453 No Longer Active León Mariee APRN Active OXYCODONE-ACETAMINOPHEN 5-325 MG ORAL TABLET Take one tablet by mouth every 6 hours 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 Use sparingly OXYCODONE-ACETAMINOPHEN 90525453519 Active Tesfaye villar MD Active CLONAZEPAM 0.5 MG ORAL TABLET Take 1/2 qam, and 1/2 qpm CLONAZEPAM 16081964271 Active Tesfaye Sherman MD Active PRELIEF 340 (65-50) MG (CA-P) ORAL TABLET CALCIUM GLYCEROPHOSPHATE 48388904742 No Longer Active Tesfaye Sherman MD Active SUDAFED 24 HOUR 240 MG ORAL TABLET EXTENDED RELEASE 24 HOUR 1 tab po daily PSEUDOEPHEDRINE HCL 07188113344 No Longer Active Raul Sherman MD Active RED YEAST RICE 600 MG ORAL CAPSULE 1 pill by mouth daily RED YEAST RICE EXTRACT 63190816508 No Longer Active Tesfaye Sherman MD Active REPHRESH PRO-B ORAL CAPSULE 1 tablet daily LACT OBACILLUS 47578621433 No Longer Active Tesfaye Sherman MD Active ABILIFY 2 MG ORAL TABLET 1 by mouth daily. MARIA ELENA PIPRAZOLE 85870852334 Active Tesfaye Sherman MD Active CYMBALTA 60 MG ORAL CAPSULE DELAYED RELEASE PARTICLES 1 cap by mouth daily for pain DULOXETINE HCL 78012700880 Active MARCUS Lindsay Active DIFLUCAN 100 MG ORAL TABLET 1 tablet by mouth daily 20 20/06/06 FLUCONAZOLE 94909045154 No Longer Active Tesfaye Sherman MD Acti ve PREDNISONE 20 MG ORAL TABLET 1 tablet by mouth twice d aily for 3 days, then 1 tablet daily for 3 days PREDNISONE 73549448835 No L onger Active Tesfaye Sherman MD Active BACTRIM DS 800-160 MG ORAL TABLET 1 tab by mouth twice daily 201 06/09/02 TRIMETHOPRIM-SULFAMETHOXAZOLE 36102224230 No Longer Active Fer Dominguez Active DIFLUCAN 100 MG ORAL TABLET 1 tablet by mouth daily 20 20/05/01 FLUCONAZOLE 80745840507 No Longer Active Tesfaye Sherman MD Acti ve ZITHROMAX 250 MG ORAL TABLET 2 po today, then 1 po q days 2-5 20 20/04/28 AZITHROMYCIN 87208919645 No Longer Active Tesfaye Sherman MD Active MECLIZINE HCL 25 MG ORAL TABLET one tab po qday prn dizziness 20 17/09/06 MECLIZINE HCL 92311106631 No Longer Active Tesfaye Sherman MD Active PROAIR HFA 108 (90 BASE) MCG/ACT INHALATION AEROSOL SO LUTION 1 puff every 6 hours as needed ALBUTEROL SULFATE 80435968870 No Long er Active Tesfaye Sherman MD Active PREDNISONE 20 MG ORAL TABLET 1 tab twice daily for 3 d ay, then one daily for three days PREDNISONE 95282236445 No Longer Active Tesfaye Sherman MD Active MECLIZINE HCL 25 MG ORAL TABLET one 4 times a day as needed for dizziness MECLIZINE HCL 84977637199 Active Tesfaye Sherman MD Active AMOXICILLIN 500 MG ORAL CAPSULE 1 cap by mouth three times a day AMOXICILLIN 73745208562 No Longer Active Laurence Dominguez Acti ve DIFLUCAN 100 MG ORAL TABLET 1 tablet by mouth daily 20 19/08/26 FLUCONAZOLE 94561873671 No Longer Active Tesfaye Sherman MD Acti ve BACTRIM DS 800-160 MG ORAL TABLET 1 tab by mouth twice daily 201 05/10/28 TRIMETHOPRIM-SULFAMETHOXAZOLE 52485357473 No Longer Active A mirna Dominguez Active FOSAMAX 70 MG ORAL TABLET 1 po qweek. Take 30min prio r to first food/drink. Avoid lying down x 1 hour. ALENDRONATE SODIUM 44625763 144 No Longer Active Laurence Lopezduyen Active CYMBALTA 60 MG ORAL CAPSULE DELAYED RELEASE PARTICLES Take 1 tablet by mouth daily DULOXETINE HCL 57386443105 No Longer Active Edith Burch MD Active CYMBALTA 30 MG ORAL CAPSULE DELAYED RELEASE PARTICLES 1 cap by mouth daily with 60mg DULOXETINE HCL 96048675285 No Longer Active Jordan Burch MD Active DIFLUCAN 100 MG ORAL TABLET 1 tablet by mouth daily 19/03/05 FLUCONAZOLE 50810810752 No Longer Active Tesfaye Sherman MD Acti ve BACTRIM DS 800-160 MG ORAL TABLET 1 tab by mouth twice daily 201 05/06/28 TRIMETHOPRIM-SULFAMETHOXAZOLE 88874554597 No Longer Active Umer Sherman MD Active BACTRIM DS 800-160 MG ORAL TABLET 1 tab by mouth twice daily 201 05/04/15 TRIMETHOPRIM-SULFAMETHOXAZOLE 67211846737 No Longer Active Umer Sherman MD Active DIFLUCAN 150 MG ORAL TABLET 1 tablet by mouth daily 20 18/09/20 FLUCONAZOLE 21105747042 No Longer Active Tesfaye Sherman MD Acti ve BACTRIM DS 800-160 MG ORAL TABLET 1 tab by mouth twice daily 201 04/13/17 TRIMETHOPRIM-SULFAMETHOXAZOLE 19184868863 No Longer Active Umer Sherman MD Active CEFTIN 250 MG ORAL TABLET 1 tablet twice daily x 7 days CEFUROXIME AXETIL 46860285414 No Longer Active Tesfaye Sherman MD Active DIFLUCAN 100 MG ORAL TABLET 1 tablet by mouth every other da y for 2 doses FLUCONAZOLE 89498082963 No Longer Active Tesfaye barron MD Active DIFLUCAN 100 MG ORAL TABLET 1 tablet by mouth daily X 3 DAYS 201 04/09/01 FLUCONAZOLE 59705034300 No Longer Active Rj Moss DO Ac tive MIRTAZAPINE 15 MG ORAL TABLET 1/2 tab by mouth at bedtime. 03/13 MIRTAZAPINE 90195324110 No Longer Active Tesfaye Sherman MD Active BACTRIM DS 800-160 MG ORAL TABLET 1 tab by mouth twice daily 201 04/09/01 TRIMETHOPRIM-SULFAMETHOXAZOLE 55673023193 No Longer Active Umer Sherman MD Active PRAMIPEXOLE DIHYDROCHLORIDE 0.125 MG ORAL TABLET take 1 tablet po qhs for restless leg syndrome. PRAMIPEXOLE DIHYDROCHLORI DE 34439075997 No Longer Active Tesfaye Sherman MD Active MAGNESIUM 400 MG ORAL TABLET 1 tab po daily MAGNE SIUM 79627122504 Active Chelsea Areyvon INSPECTION MACHINE TENDER Active CETIRIZINE HCL 5 MG ORAL TABLET Take 1 tablet by mouth daily CETIRIZINE HCL 15697486325 No Longer Active Chelsea Arell INSPECTION MACHINE TENDER Activ e TRIMETHOPRIM 100 MG ORAL TABLET 1/2 qd TRIM ETHOPRIM 29778846629 No Longer Active Chelsea Cardenas APRN Active BACTRIM DS 800-160 MG ORAL TABLET 1 tab by mouth twice daily 201 04/04/11 TRIMETHOPRIM-SULFAMETHOXAZOLE 18556376115 No Longer Active Umer Sherman MD Active BACTRIM DS 800-160 MG ORAL TABLET 1 tab by mouth twice daily X 10 DAYS TRIMETHOPRIM-SULFAMETHOXAZOLE 68248504700 No Longer Active Tesfaye Sherman MD Active AMOXICILLIN 500 MG ORAL CAPSULE 1 cap by mouth three times a day AMOXICILLIN 89600535548 No Longer Active Adriana Arredondo, MARCUS A ctive B-12 1000 MCG ORAL LOZENGE 1 tab po daily CYANO COBALAMIN 37982692870 Active Tesfaye Sherman MD Active VITAMIN D3 2000 UNIT ORAL TABLET 1 daily, for vitamin D deficien cy CHOLECALCIFEROL 76554102412 No Longer Active Tesfaye Sherman MD Active ZITHROMAX 250 MG ORAL TABLET 2 po today, then 1 po q days 2-5 20 15/02/10 AZITHROMYCIN 51766062519 No Longer Active Tesfaye Sherman MD Active BACTRIM DS 800-160 MG ORAL TABLET 1 tab by mouth twice daily 201 03/03/23 TRIMETHOPRIM-SULFAMETHOXAZOLE 44807460987 No Longer Active Umer Sherman MD Active DIFLUCAN 150 MG ORAL TABLET 1 qd FLUCONAZOL E 69796465558 No Longer Active Kayla Cooper MD Active FLUTICASONE PROPIONATE 50 MCG/ACT NASAL SUSPENSION 1 spray each nostril twice daily FLUTICASONE PROPIONATE 91243984775 Active D patricia Sherman MD Active LOVASTATIN 20 MG ORAL TABLET Take 1 tablet by mouth daily LOVASTATIN 03075947282 No Longer Active Tesfaye Sherman MD Acti ve MELOXICAM 7.5 MG ORAL TABLET 1 tablet by mouth daily 2 MELOXICAM 11742413653 No Longer Active Tesfaye Sherman MD Acti ve GABAPENTIN 300 MG ORAL CAPSULE Take two tablets by mouth every e vening GABAPENTIN 55803108345 No Longer Active Edith Burch MD A ctive GABAPENTIN 300 MG ORAL CAPSULE Take two tablets by mouth every e vening GABAPENTIN 300 MG ORAL CAPSULE 281810 GABAPENTIN I nactive MELOXICAM 7.5 MG ORAL TABLET 1 tablet by mouth daily 2 MELOXICAM 7.5 MG ORAL TABLET 872992 MELOXICAM Inactive LOVASTATIN 20 MG ORAL TABLET Take 1 tablet by mouth daily LOVASTATIN 20 MG ORAL TABLET 864422 LOVASTATIN Inactive DIFLUCAN 150 MG ORAL TABLET 1 qd DIFLUCAN 150 MG ORAL TABLET 511546 FLUCONAZOLE Inactive VITAMIN D3 2000 UNIT ORAL TABLET 1 daily, for vitamin D deficien cy VITAMIN D3 2000 UNIT ORAL TABLET CHOLECALCIFEROL Inactive AMOXICILLIN 500 MG ORAL CAPSULE 1 cap by mouth three times a day AMOXICILLIN 500 MG ORAL CAPSULE 820424 AMOXICILLIN Inactive BACTRIM DS 800-160 MG ORAL TABLET 1 tab by mouth twice daily X 10 DAYS BACTRIM DS 800-160 MG ORAL TABLET 855992 TRIMETHOPRIM-SULFAMETHOXAZOLE Inactive TRIMETHOPRIM 100 MG ORAL TABLET 1/2 qd 7 TRIMETHOPRIM 100 MG ORAL TABLET 433283 TRIMETHOPRIM Inactive CETIRIZINE HCL 5 MG ORAL TABLET Take 1 tablet by mouth daily CETIRIZINE HCL 5 MG ORAL TABLET 8424918 CETIRIZINE HCL Inactive PRAMIPEXOLE DIHYDROCHLORIDE 0.125 MG ORAL TABLET take 1 tablet po qhs for restless leg syndrome. PRAMIPEXOLE DIHYD ROCHLORIDE 0.125 MG ORAL TABLET 966596 PRAMIPEXOLE DIHYDROCHLORIDE Inactive MIRTAZAPINE 15 MG ORAL TABLET 1/2 tab by mouth at bedtime. 03/13 MIRTAZAPINE 15 MG ORAL TABLET 698035 MIRTAZAPINE In active DIFLUCAN 100 MG ORAL TABLET 1 tablet by mouth daily X 3 DAYS 201 04/09/01 DIFLUCAN 100 MG ORAL TABLET 435458 FLUCONAZOLE Inac tive DIFLUCAN 100 MG ORAL TABLET 1 tablet by mouth every other da y for 2 doses DIFLUCAN 100 MG ORAL TABLET 072103 FLUCONAZOLE Inactive CEFTIN 250 MG ORAL TABLET 1 tablet twice daily x 7 days CEFTIN 250 MG ORAL TABLET CEFUROXIME AXETIL Inactive CYMBALTA 30 MG ORAL CAPSULE DELAYED RELEASE PARTICLES 1 cap by mouth daily with 60mg CYMBALTA 30 MG ORAL CAPSULE DELAYED RELEASE PARTICLES 030617 DULOXETINE HCL Inactive CYMBALTA 60 MG ORAL CAPSULE DELAYED RELEASE PARTICLES Take 1 tablet by mouth daily CYMBALTA 60 MG ORAL CAPSULE DELAYED RELEA SE PARTICLES 549829 DULOXETINE HCL Inactive FOSAMAX 70 MG ORAL TABLET 1 po qweek. Take 30min prio r to first food/drink. Avoid lying down x 1 hour. FOSAMAX 70 MG ORAL TA BLET 373278 ALENDRONATE SODIUM Inactive DIFLUCAN 100 MG ORAL TABLET 1 tablet by mouth daily 20 19/08/26 DIFLUCAN 100 MG ORAL TABLET 19760711 FLUCONAZOLE Inactive PREDNISONE 20 MG ORAL TABLET 1 tab twice daily for 3 d ay, then one daily for three days PREDNISONE 20 MG ORAL TABLET 652867 PREDNIS ONE Inactive PROAIR HFA 108 (90 BASE) MCG/ACT INHALATION AEROSOL SO LUTION 1 puff every 6 hours as needed PROAIR HFA 108 (90 B ASE) MCG/ACT INHALATION AEROSOL SOLUTION ALBUTEROL SULFATE Inactive MECLIZINE HCL 25 MG ORAL TABLET one tab po qday prn dizziness 20 17/09/06 MECLIZINE HCL 25 MG ORAL TABLET 590211 MECLIZINE HCL Inactive PREDNISONE 20 MG ORAL TABLET 1 tablet by mouth twice d aily for 3 days, then 1 tablet daily for 3 days PREDNISONE 20 MG ORAL TA BLET 662565 PREDNISONE Inactive DIFLUCAN 100 MG ORAL TABLET 1 tablet by mouth daily 20 20/06/06 DIFLUCAN 100 MG ORAL TABLET 19760711 FLUCONAZOLE Inactive REPHRESH PRO-B ORAL CAPSULE 1 tablet daily REPHRESH PRO-B ORAL CAPSULE LACTOBACILLUS Inactive RED YEAST RICE 600 MG ORAL CAPSULE 1 pill by mouth daily RED YEAST RICE 600 MG ORAL CAPSULE 917795 RED YEAST RICE EXTRACT In active SUDAFED [...] 20 19/02/09 DIFLUCAN 100 MG ORAL TABLET 760931 FLUCONAZOLE Inactive VENLAFAXINE HCL 75 MG ORAL TABLET 1 am 1/2 at noon 201 07/07/09 VENLAFAXINE HCL 75 MG ORAL TABLET 846066 VENLAFAXINE HCL Inacti ve GABAPENTIN 300 MG ORAL CAPSULE 1 po daily GABAPENTIN 300 MG ORAL CAPSULE 627234 GABAPENTIN Inactive SUDAFED 12 HOUR 120 MG ORAL TABLET EXTENDED RELEASE 12 HOUR 1 pill twice daily if needed for congestion SUDAFED 12 HOUR 120 MG ORAL TABLET EXTENDED RELEASE 12 HOUR PSEUDOEPHEDRINE HCL Inactive AMITRIPTYLINE HCL 10 MG ORAL TABLET 1 tablet nightly by mout h for neuropathy AMITRIPTYLINE HCL 10 MG ORAL TABLET 837171 AMITRIPTYLINE HCL Inactive AMITRIPTYLINE HCL 50 MG ORAL TABLET 1 po q hs for sleep AMITRIPTYLINE HCL 50 MG ORAL TABLET 978489 AMITRIPTYLINE HCL Inac tive PREDNISONE 20 MG ORAL TABLET 1 tab twice daily for 3 d ay, then one daily for three days PREDNISONE 20 MG ORAL TABLET 799694 PREDNIS ONE Inactive ROPINIROLE HCL 0.25 MG ORAL TABLET 1 TAB PO Q HS 05/31 ROPINIROLE HCL 0.25 MG ORAL TABLET 750413 ROPINIROLE HCL Inact trent ROPINIROLE HCL 0.5 MG ORAL TABLET 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 ROPINIROLE HCL 0.5 MG ORAL TABLET 079633 ROPINIR OLE HCL Inactive ROPINIROLE HCL 1 MG ORAL TABLET 1 tab po q hs ROPINIROLE HCL 1 MG ORAL TABLET 344834 ROPINIROLE HCL Inactive ROPINIROLE HCL 2 MG ORAL TABLET 1 po at hs 7 ROPINIROLE HCL 2 MG ORAL TABLET 518098 ROPINIROLE HCL Inactive MIRAPEX 0.125 MG ORAL TABLET 1 po nightly MIRAPEX 0.125 MG ORAL TABLET 681454 PRAMIPEXOLE DIHYDROCHLORIDE Inactive MIRAPEX 0.25 MG ORAL TABLET 1 tablet by mouth at night for r estless leg MIRAPEX 0.25 MG ORAL TABLET 924424 PRAM IPEXOLE DIHYDROCHLORIDE Inactive HYDROXYZINE HCL 25 MG ORAL TABLET 1 tab po at HS prn sleep 08/02 HYDROXYZINE HCL 25 MG ORAL TABLET 138113 HYDROXYZINE HC L Inactive DIFLUCAN 100 MG ORAL TABLET 1 tablet by mouth daily 20 21/08/28 DIFLUCAN 100 MG ORAL TABLET 399559 FLUCONAZOLE Inactive BACLOFEN 10 MG ORAL TABLET Take one tablet by mouth three times a day BACLOFEN 10 MG ORAL TABLET 224755 BACLOFEN Inact trent PREDNISONE 20 MG ORAL TABLET 1 tab twice daily for 3 d ay, then one daily for three days PREDNISONE 20 MG ORAL TABLET 986963 PREDNIS ONE Inactive UNISOM SLEEPMELTS 25 MG [...] 03/03/23 BACTRIM DS 800-160 MG ORAL TABLET 421918 TRIMETHOPRIM-SULFAMETHOXAZOLE Inactive ZITHROMAX 250 MG ORAL TABLET 2 po today, then 1 po q days 2-5 20 15/02/10 ZITHROMAX 250 MG ORAL TABLET 310919 AZITHROMYCIN [place] ctive BACTRIM DS 800-160 MG ORAL TABLET 1 tab by mouth twice daily 201 04/04/11 BACTRIM DS 800-160 MG ORAL TABLET 568657 TRIMETHOPRIM-SULFAMETHOXAZOLE Inactive BACTRIM DS 800-160 MG ORAL [...] a day AMOXICILLIN 500 MG ORAL CAPSULE 837552 AMOXICILLIN Inactive ZITHROMAX 250 MG ORAL TABLET 2 po today, then 1 po q days 2-5 20 20/04/28 ZITHROMAX 250 MG ORAL TABLET 079507 AZITHROMYCIN Mayela ctive DIFLUCAN 100 MG ORAL TABLET 1 tablet by mouth daily 20 20/05/01 DIFLUCAN 100 MG ORAL TABLET 19760711 FLUCONAZOLE Inactive BACTRIM DS 800-160 MG ORAL TABLET 1 tab by mouth twice daily 201 06/09/02 BACTRIM DS 800-160 MG ORAL TABLET 19830105 TRIMETHOPRIM-SULFAMETHOXAZOLE Inactive HYDROCHLOROTHIAZIDE 12.5 MG ORAL CAPSULE 1 pill by mough daily 2 HYDROCHLOROTHIAZIDE 12.5 MG ORAL CAPSULE [facility] LOROTHIAZIDE Inactive BACTRIM DS 800-160 MG ORAL TABLET 1 tab by mouth twice daily 201 07/08/06 BACTRIM DS 800-160 MG ORAL TABLET 378852 TRIMETHOPRIM-SULFAMETHOXAZOLE Inactive DIFLUCAN 100 MG ORAL TABLET 1 tablet by mouth daily 21/03/11 DIFLUCAN 100 MG ORAL TABLET 19760711 FLUCONAZOLE Inactive ZITHROMAX 250 MG ORAL TABLET 2 po today, then 1 po q days 2-5 20 21/08/28 ZITHROMAX 250 MG ORAL TABLET 430189 AZITHROMYCIN Mayela ctive FLUCONAZOLE 100 MG ORAL [...] LIVING WILL ON FILE DURABLE POWER OF CREDIT CASHIER FOR HEALTHCARE Vital Signs Date Name Value [...] Magnesium - Chemistry cholesterol, serum 196 mg/dL 081-291 7261/07/30 triglyceride, serum, fasting 86 mg/dL 30-200 HDL cholesterol, serum 41 mg/dL 32-60 LDL cholesterol, serum 138 mg/dL 0-130 sodium, serum 140 mmol/L 367-967 1024/07/30 carbon dioxide, venous blood 28.6 mmol/L 21.0-32 [...] 5.0-8.5 Encounters Code Encounter Date Provider Facility CPT-32173 [id number] Vst-Est Level IV 10:36:10 C BRIDGET Sherman MD [facility] CPT-79292 [id number] Vst-Est Level IV 13:49:08 EQUIP MAINT ENG Mendy Matute [facility] CPT-09802 [id number] Vst-Est Level IV 11:39:[address] Tesfaye Sherman MD [facility] CPT-03665 [id number] Vst-Est Level IV 14:08:03 C BRIDGET Sherman MD [facility] CPT-77189 Level 3 Est. Patient 18:06:36 CDT Tesfaye pearson MD [facility] CPT-80820 [id number] Vst-Est Level IV 17:09:34 C BRIDGET Sherman MD [facility] CPT-04122 Level 3 Est. Patient 17:27:08 CDT León hernandez APRN [facility] CPT-66720 [id number] Vst-Est Level IV 14:00:[address] Tesfaye Sherman MD [facility] CPT-91263 [id number] Vst-Est Level IV 19:27:[address] Tesfaye Sherman MD [facility] CPT-60574 [id number] Vst-Est Level IV 10:41:41 C BRIDGET Sherman MD [facility] CPT-14467 [id number] Vst-Est Level III 09:40:56 CDT Tsefaye Sherman MD [facility] CPT-04876 Level 4 Est. Patient 22:18:12 CDT Tesfaye pearson MD [facility] CPT-95788 Level 4 Est. Patient 14:44:33 EQUIP MAINT ENG Tesfaye pearson MD [facility] CPT-25705 Level 4 Est. Patient 13:55:29 EQUIP MAINT ENG Tesfaye pearson MD [facility] CPT-81522 Level 4 Est. Patient 17:07:34 EQUIP MAINT ENG Tesfaye pearson MD [facility] CPT-02398 Level 4 Est. Patient 13:56:54 CDT Tesfaye pearson MD [facility] CPT-15297 Level 4 Est. Patient 13:24:25 CDT Chelsea Hardin yvon MERCADO [facility] CPT-48125 Level 4 Est. Patient 09:14:56 CDT Tesfaye pearson MD [facility]-25093 Level 4 Est. Patient 18:40:25 EQUIP MAINT ENG Tesfaye pearson MD [facility]-55341 Level 4 Est. Patient 18:13:07 EQUIP MAINT ENG Tesfaye pearson MD [facility] CPT-36042 Level 3 Est. Patient 10:46:32 CDT Rj cotto DO [facility] CPT-63829 Level 4 Est. Patient 20:19:25 CDT Tesfaye pearson MD [facility] CPT-15408 Level 3 Est. Patient 09:07:31 CDT Tesfaye pearson MD [facility] CPT-95122 Level 4 Est. Patient 13:12:56 CDT Tesfaye pearson MD [facility] CPT-51203 Level 4 Est. Patient 21:24:55 EQUIP MAINT ENG Tesfaye pearson MD [facility] CPT-20312 Level 3 Est. Patient 13:45:04 EQUIP MAINT ENG Tesfaye pearson MD [facility] CPT-26407 Level 4 Est. Patient 13:50:45 CDT Tesfaye pearson MD [facility] CPT-31903 Level 3 Est. Patient 10:16:10 CDT Tesfaye pearson MD [facility] CPT-93059 Level 3 Est. Patient 16:36:07 EQUIP MAINT ENG Kayla jameson MD [facility] CPT-99681 Level 4 Est. Patient 16:00:14 EQUIP MAINT ENG Tesfaye pearson MD [facility] CPT-02425 Level 4 Est. Patient 11:02:24 EQUIP MAINT ENG Tesfaye pearson MD [facility] CPT-82491 Level 3 Est. Patient 20:21:43 EQUIP MAINT ENG Kayla jameson MD [facility] CPT-88589 Level 3 Est. Patient 13:27:28 EQUIP MAINT ENG Kayla jameson MD [facility] CPT-21731 Level 4 Est. Patient 15:57:17 EQUIP MAINT ENG Tesfaye pearson MD [facility] CPT-69782 Level 3 New Patient 13:25:47 CDT Tesfaye kidd MD [facility] CPT-39069 Level 3 New Patient 17:22:21 CDT J John angel MD [facility] Procedures Code Procedure Name Date Entry Date Standard Desc ription CPT-G0439 Subsequent Annual Wellness Exam 11:25:51 CDT [id number] ([id number] 2P) Patient Reason Influenza immu nization not administered 13:25:19 EQUIP MAINT ENG CPT-99177 Bone Density - XRAY USE ONLY 15:21:33 CDT CPT-16524 Venipuncture Draw Fee 16:12:22 CDT CPT-G0439 Subsequent Annual Wellness Exam 18:06:36 CDT CPT-G0439 Subsequent Annual Wellness Exam 22:18:11 CDT CPT-10144 Bone Density - XRAY USE ONLY 11:43:58 CDT CPT-69981 Bone Density - XRAY USE ONLY 10:05:16 CDT 2 CPT-11146 Prv Med New Pt 40-64 yrs 18:19:25 CDT 2016 CPT-87226 Foot, right, comp min 3V - XRAY USE ONLY 10:38:34 CDT CPT-G0439 Subsequent Annual Wellness Exam 13:55:04 CDT CPT-G0438 Initial Annual Wellness Exam 11:23:17 CD T CPT-J2930 Solu Medrol 125 mg (Methyl Prednisolone Sodium Succinate) 17:29:12 EQUIP MAINT ENG CPT-98730 Abx/Therapy Injection 17:29:11 EQUIP MAINT ENG CPT-J2930 Solu Medrol 125 mg (Methyl Prednisolone Sodium Succinate) 12:34:38 EQUIP MAINT ENG CPT-J3420 Vitamin B12 1000mcg (Cyanocobalamin) 09:12:55 CDT CPT-J3420 Vitamin B12 1000mcg (Cyanocobalamin) 16:28:06 EQUIP MAINT ENG CPT-83710 Venipuncture Draw Fee 08:39:53 CDT CPT-J3420 Vitamin B12 1000mcg (Cyanocobalamin) 08:46:22 CDT CPT-33277 Abx/Therapy Injection 08:46:22 CDT CPT-J3420 Vitamin B12 1000mcg (Cyanocobalamin) 08:41:26 CDT CPT-79819 Abx/Therapy Injection 08:41:26 CDT CPT-J3420 Vitamin B12 1000mcg (Cyanocobalamin) 08:57:15 CDT CPT-40214 Abx/Therapy Injection 08:57:15 CDT CPT-J3420 Vitamin B12 1000mcg (Cyanocobalamin) 10:59:03 CDT CPT-96087 Abx/Therapy Injection 10:59:03 CDT CPT-J3420 Vitamin B12 1000mcg (Cyanocobalamin) 15:05:39 CDT CPT-87890 Abx/Therapy Injection 15:05:39 CDT CPT-J3420 Vitamin B12 1000mcg (Cyanocobalamin) 13:50:45 CDT CPT-J3420 Vitamin B12 1000mcg (Cyanocobalamin) 08:48:55 CDT CPT-27652 Abx/Therapy Injection 08:48:55 CDT CPT-J3420 Vitamin B12 1000mcg (Cyanocobalamin) 09:14:54 CDT CPT-01166 Abx/Therapy Injection 09:14:54 CDT CPT-J3420 Vitamin B12 1000mcg (Cyanocobalamin) 09:06:06 CDT CPT-15956 Abx/Therapy Injection 09:06:06 CDT CPT-J3420 Vitamin B12 1000mcg (Cyanocobalamin) 09:49:14 CDT CPT-28038 Abx/Therapy Injection 09:49:14 CDT CPT-J3420 Vitamin B12 1000mcg (Cyanocobalamin) 09:10:30 EQUIP MAINT ENG CPT-33964 Abx/Therapy Injection 09:10:30 EQUIP MAINT ENG CPT-J3420 Vitamin B12 1000mcg (Cyanocobalamin) 09:11:07 EQUIP MAINT ENG CPT-13085 Abx/Therapy Injection 09:11:07 EQUIP MAINT ENG CPT-J3420 Vitamin B12 1000mcg (Cyanocobalamin) 09:57:03 EQUIP MAINT ENG CPT-41169 Abx/Therapy Injection 09:57:03 EQUIP MAINT ENG CPT-J3420 Vitamin B12 1000mcg (Cyanocobalamin) 09:23:21 EQUIP MAINT ENG CPT-69540 Abx/Therapy Injection 09:23:21 EQUIP MAINT ENG CPT-24665 Urine Dip (Floor Use Only) 20:21:44 EQUIP MAINT ENG 201 02/12/11 CPT-83305 UA Dip Auto (Floor Use Only) 10:04:39 EQUIP MAINT ENG 2 CPT-26243 Urine Dip (Floor Use Only) 13:27:28 EQUIP MAINT ENG 201 02/12/01 CPT-30487 Bladder Scan 13:27:28 EQUIP MAINT ENG CPT-16103 Abd single AP View 14:30:51 EQUIP MAINT ENG CPT-OV Office Visit 10:15:43 CDT CPT-23734 Urine Dip (Floor Use Only) 17:22:21 CDT 201 02/09/02 CPT-25193 Bladder Scan 17:22:21 CDT
--- OUTSIDE RECORDS SUMMARY | 2020-05-05 11:02 | XMS REPORT | Clinical Summary ---
Author Author Talon, Jeri Wood Organization [employer] Address Unknown Phone Unavailable Allergies, Adverse Reactions, [...] MD NUVIGIIsrael Critical Active Kayla tate MD NAPROXEN Critical Active Kayla guadarrama MD BENADRYIsrael Critical [...] Sherman MD Routine general medical examination at [facility] acility Sinusitis 461.9 Resolved Tesfaye Sherman MD [...] MD Routine general medical examination at a [facility] acility Body Mass Index 21.0-21.9 Adult [...] between 19-24, adult Dysuria 788.1 Resolved Tesfaye Shreman MD Dysuria High risk meds [employer] for medical terminology use V58.6 Active Tesfaye Sherman MD Long-term (current) drug use Yeast infection 112.9 Inactive Tesfaye Sherman MD Candidiasis of unspecified site Upper respiratory infection 465.9 Inactive Tesfaye Sherman MD Acute upper respiratory infections of un specified site Lower extremity edema, bilateral 782.3 Active 201 07/07/09 León Kodi DIRECTOR GENERAL Edema Peripheral neuropathy 356.9 Active Tesfaye lamb [...] qhs for restless leg syndrome. PRAMIPEXOLE DIHYDROCHLORIDE 37158298298 Acti ve Tesfaye Sherman MD Active DIFLUCAN 100 MG ORAL TABLET 1 tablet by mouth daily 20 23/12/05 FLUCONAZOLE 30719045564 No Longer Active Tesfaye Sherman MD Acti ve [facility] NIACIN FLUSH FREE 400-100 MG ORAL CAPSULE 1 daily NIACIN-INOSITOL 01053054477 No Longer Active Tesfaye Sherman MD A ctive FISH OIL 1000 MG ORAL CAPSULE DELAYED RELEASE 1 pill b y mouth daily for cholesterol OMEGA-3 FATTY ACIDS 49720118348 No Longe r Active Tesfaye Sherman MD Active UNISOM SLEEPMELTS 25 MG ORAL TABLET DISINTEGRATING 1.5 po q hs DIPHENHYDRAMINE HCL (SLEEP) 48808269925 No Longer Active Venkata Sherman MD Active PREDNISONE 20 MG ORAL TABLET 1 tab twice daily for 3 d ay, then one daily for three days PREDNISONE 64542425030 No Longer Active Tesfaye Sherman MD Active BACLOFEN 10 MG ORAL TABLET Take one tablet by mouth three times a day BACLOFEN 62444945502 No Longer Active Tesfaye Sherman MD Active LIDOCAINE 4 % EXTERNAL CREAM Apply to back prn pain LIDOCAINE 85420723801 Active Tesfaye Sherman MD Active TIZANIDINE HCL 2 MG ORAL TABLET 2 Mg in the AM and 6mg q hs 07/05 TIZANIDINE HCL 95353209441 Active Tesfaye Sherman MD Active HYDROXYZINE HCL 25 MG TABS TAKE 1 TABLET BY MOUTH AT B EDTIME NEEDED FOR SLEEP HYDROXYZINE HCL 97575451946 Active JOSHUA Lindsay Active FLUCONAZOLE 100 MG ORAL TABLET 1 by mouth daily for yeast infect ion FLUCONAZOLE 84998102592 No Longer Active Laurence Dominguez Acti ve ZITHROMAX 250 MG ORAL TABLET 2 po today, then 1 po q days 2-5 20 21/08/28 AZITHROMYCIN 75469922943 No Longer Active Tesfaye Sherman MD Active DIFLUCAN 100 MG ORAL TABLET 1 tablet by mouth daily 20 21/08/28 FLUCONAZOLE 57723993555 No Longer Active Tesfaye Sherman MD Acti ve HYDROXYZINE HCL 25 MG ORAL TABLET 1 tab po at HS prn sleep 08/02 HYDROXYZINE HCL 45275078070 No Longer Active Tesfaye Sherman MD Active MIRAPEX 0.5 MG ORAL TABLET 1 tablet at night for restless leg. 2018 PRAMIPEXOLE DIHYDROCHLORIDE 68175430930 Active Laurenceyohana Dominguez Active MIRAPEX 0.25 MG ORAL TABLET 1 tablet by mouth at night for r estless leg PRAMIPEXOLE DIHYDROCHLORIDE 43744014675 No Longer Act trent Laurenceyohana Dominguez Active MIRAPEX 0.125 MG ORAL TABLET 1 po nightly PRAMIPEXOLE DIHYDROCHLORIDE 01677401534 No Longer Active Laurence Dominguez Active ROPINIROLE HCL 2 MG ORAL TABLET 1 po at hs ROPI NIROLE HCL 95389178983 No Longer Active Laurenceyohana Dominguez Active ROPINIROLE HCL 1 MG ORAL TABLET 1 tab po q hs ROPINIROLE HCL 49792398680 No Longer Active Laurence Dominguez Active ROPINIROLE HCL 0.5 MG ORAL TABLET 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 ROPINIROLE HCL 72374013431 No Longer Active MARCUS Panchal Active ROPINIROLE HCL 0.25 MG ORAL TABLET 1 TAB PO Q HS 05/31 ROPINIROLE HCL 83624956196 No Longer Active Tesfaye Sherman MD Ac tive PREDNISONE 20 MG ORAL TABLET 1 tab twice daily for 3 d ay, then one daily for three days PREDNISONE 90765707312 No Longer Active Tesfaye Sherman MD Active AMITRIPTYLINE HCL 50 MG ORAL TABLET 1 po q hs for sleep AMITRIPTYLINE HCL 54902582285 No Longer Active Tesfaye Sherman MD Active AMITRIPTYLINE HCL 10 MG ORAL TABLET 1 tablet nightly by mout h for neuropathy AMITRIPTYLINE HCL 33727512791 No Longer Active MARCUS Stapleton Active DIFLUCAN 100 MG ORAL TABLET 1 tablet by mouth daily 20 21/03/11 FLUCONAZOLE 51365100365 No Longer Active Tesfaye Sherman MD Acti ve BACTRIM DS 800-160 MG ORAL TABLET 1 tab by mouth twice daily 201 07/08/06 TRIMETHOPRIM-SULFAMETHOXAZOLE 25060246398 No Longer Active Umer Sherman MD Active CLARITIN 10 MG ORAL TABLET Take one by mouth daily LORATADINE 13805688380 Active Tesfaye Sherman MD Active SUDAFED 12 HOUR 120 MG ORAL TABLET EXTENDED RELEASE 12 HOUR 1 pill twice daily if needed for congestion PSEUDOEPHEDRINE HCL 771586679 13 No Longer Active Tesfaye Sherman MD Active FENOFIBRATE 145 MG ORAL TABLET 1 by mouth daily FENOFIBRATE 23636361861 Active Laurence Dominguez Active GABAPENTIN 300 MG ORAL CAPSULE 1 po daily GABAP ENTIN 98528495740 No Longer Active Tesfaye Sherman MD Active HYDROCHLOROTHIAZIDE 12.5 MG ORAL CAPSULE 1 pill by mough daily 2 HYDROCHLOROTHIAZIDE 89255842364 No Longer Active León Mariee APRN Active VENLAFAXINE HCL 75 MG ORAL TABLET 1 am 1/2 at noon 201 07/07/09 VENLAFAXINE HCL 76879487597 No Longer Active León Mariee APRN Act trent DIFLUCAN 100 MG ORAL TABLET 1 tablet by mouth daily 20 19/02/09 FLUCONAZOLE 38214968265 No Longer Active León Kodi DIRECTOR GENERAL Active DIFLUCAN 100 MG ORAL TABLET 1 tablet by mouth daily 20 19/02/09 FLUCONAZOLE 91234996261 No Longer Active León Mariee APRN Active OXYCODONE-ACETAMINOPHEN 5-325 MG ORAL TABLET Take one tablet by mouth every 6 hours 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 Use sparingly OXYCODONE-ACETAMINOPHEN 86693308045 Active Tesfaye villar MD Active CLONAZEPAM 0.5 MG ORAL TABLET Take 1/2 qam, and 1/2 qpm CLONAZEPAM 32685865548 Active Tesfaye Sherman MD Active PRELIEF 340 (65-50) MG (CA-P) ORAL TABLET CALCIUM GLYCEROPHOSPHATE 05932263824 No Longer Active Tesfaye Sherman MD Active SUDAFED 24 HOUR 240 MG ORAL TABLET EXTENDED RELEASE 24 HOUR 1 tab po daily PSEUDOEPHEDRINE HCL 55881202957 No Longer Active Raul Sherman MD Active RED YEAST RICE 600 MG ORAL CAPSULE 1 pill by mouth daily RED YEAST RICE EXTRACT 86035948982 No Longer Active Tesfaye Sherman MD Active REPHRESH PRO-B ORAL CAPSULE 1 tablet daily LACT OBACILLUS 42293870171 No Longer Active Tesfaye Sherman MD Active ABILIFY 2 MG ORAL TABLET 1 by mouth daily. MARIA ELENA PIPRAZOLE 27057012380 Active Tesfaye Sherman MD Active CYMBALTA 60 MG ORAL CAPSULE DELAYED RELEASE PARTICLES 1 cap by mouth daily for pain DULOXETINE HCL 85049163668 Active MARCUS Lindsay Active DIFLUCAN 100 MG ORAL TABLET 1 tablet by mouth daily 20 20/06/06 FLUCONAZOLE 18382567022 No Longer Active Tesfaye Sherman MD Acti ve PREDNISONE 20 MG ORAL TABLET 1 tablet by mouth twice d aily for 3 days, then 1 tablet daily for 3 days PREDNISONE 26710467789 No L onger Active Tesfaye Sherman MD Active BACTRIM DS 800-160 MG ORAL TABLET 1 tab by mouth twice daily 201 06/09/02 TRIMETHOPRIM-SULFAMETHOXAZOLE 05809446847 No Longer Active Fer Dominguez Active DIFLUCAN 100 MG ORAL TABLET 1 tablet by mouth daily 20 20/05/01 FLUCONAZOLE 35001244602 No Longer Active Tesfaye Sherman MD Acti ve ZITHROMAX 250 MG ORAL TABLET 2 po today, then 1 po q days 2-5 20 20/04/28 AZITHROMYCIN 02698819362 No Longer Active Tesfaye Sherman MD Active MECLIZINE HCL 25 MG ORAL TABLET one tab po qday prn dizziness 20 17/09/06 MECLIZINE HCL 18697989817 No Longer Active Tesfaye Sherman MD Active PROAIR HFA 108 (90 BASE) MCG/ACT INHALATION AEROSOL SO LUTION 1 puff every 6 hours as needed ALBUTEROL SULFATE 52417811797 No Long er Active Tesfaye Sherman MD Active PREDNISONE 20 MG ORAL TABLET 1 tab twice daily for 3 d ay, then one daily for three days PREDNISONE 35206851226 No Longer Active Tesfaye Sherman MD Active MECLIZINE HCL 25 MG ORAL TABLET one 4 times a day as needed for dizziness MECLIZINE HCL 24517535961 Active Tesfaye Sherman MD Active AMOXICILLIN 500 MG ORAL CAPSULE 1 cap by mouth three times a day AMOXICILLIN 98615524552 No Longer Active Laurence Dominguez Acti ve DIFLUCAN 100 MG ORAL TABLET 1 tablet by mouth daily 20 19/08/26 FLUCONAZOLE 48482478186 No Longer Active Tesfaye Sherman MD Acti ve BACTRIM DS 800-160 MG ORAL TABLET 1 tab by mouth twice daily 201 05/10/28 TRIMETHOPRIM-SULFAMETHOXAZOLE 18116310574 No Longer Active A mirna Dominguez Active FOSAMAX 70 MG ORAL TABLET 1 po qweek. Take 30min prio r to first food/drink. Avoid lying down x 1 hour. ALENDRONATE SODIUM 70757038 144 No Longer Active Laurence Lopezduyen Active CYMBALTA 60 MG ORAL CAPSULE DELAYED RELEASE PARTICLES Take 1 tablet by mouth daily DULOXETINE HCL 35626019587 No Longer Active Edith Burch MD Active CYMBALTA 30 MG ORAL CAPSULE DELAYED RELEASE PARTICLES 1 cap by mouth daily with 60mg DULOXETINE HCL 82576174666 No Longer Active Jordan Burch MD Active DIFLUCAN 100 MG ORAL TABLET 1 tablet by mouth daily 19/03/05 FLUCONAZOLE 44551765316 No Longer Active Tesfaye Sherman MD Acti ve BACTRIM DS 800-160 MG ORAL TABLET 1 tab by mouth twice daily 201 05/06/28 TRIMETHOPRIM-SULFAMETHOXAZOLE 21680992993 No Longer Active Umer Sherman MD Active BACTRIM DS 800-160 MG ORAL TABLET 1 tab by mouth twice daily 201 05/04/15 TRIMETHOPRIM-SULFAMETHOXAZOLE 94941166024 No Longer Active Umer Sherman MD Active DIFLUCAN 150 MG ORAL TABLET 1 tablet by mouth daily 20 18/09/20 FLUCONAZOLE 02688622883 No Longer Active Tesfaye Sherman MD Acti ve BACTRIM DS 800-160 MG ORAL TABLET 1 tab by mouth twice daily 201 04/13/17 TRIMETHOPRIM-SULFAMETHOXAZOLE 67668331120 No Longer Active Umer Sherman MD Active CEFTIN 250 MG ORAL TABLET 1 tablet twice daily x 7 days CEFUROXIME AXETIL 14164463732 No Longer Active Tesfaye Sherman MD Active DIFLUCAN 100 MG ORAL TABLET 1 tablet by mouth every other da y for 2 doses FLUCONAZOLE 52275068360 No Longer Active Tesfaye barron MD Active DIFLUCAN 100 MG ORAL TABLET 1 tablet by mouth daily X 3 DAYS 201 04/09/01 FLUCONAZOLE 52649409351 No Longer Active Rj Moss DO Ac tive MIRTAZAPINE 15 MG ORAL TABLET 1/2 tab by mouth at bedtime. 03/13 MIRTAZAPINE 60565976758 No Longer Active Tesfaye Sherman MD Active BACTRIM DS 800-160 MG ORAL TABLET 1 tab by mouth twice daily 201 04/09/01 TRIMETHOPRIM-SULFAMETHOXAZOLE 89729134651 No Longer Active Umer Sherman MD Active PRAMIPEXOLE DIHYDROCHLORIDE 0.125 MG ORAL TABLET take 1 tablet po qhs for restless leg syndrome. PRAMIPEXOLE DIHYDROCHLORI DE 52236526077 No Longer Active Tesfaye Sherman MD Active MAGNESIUM 400 MG ORAL TABLET 1 tab po daily MAGNE SIUM 23914650671 Active Chelsea Areyvon DIRECTOR GENERAL Active CETIRIZINE HCL 5 MG ORAL TABLET Take 1 tablet by mouth daily CETIRIZINE HCL 16859710211 No Longer Active Chelsea Arell DIRECTOR GENERAL Activ e TRIMETHOPRIM 100 MG ORAL TABLET 1/2 qd TRIM ETHOPRIM 09682265467 No Longer Active Chelsea Cardenas APRN Active BACTRIM DS 800-160 MG ORAL TABLET 1 tab by mouth twice daily 201 04/04/11 TRIMETHOPRIM-SULFAMETHOXAZOLE 58553719816 No Longer Active Umer Sherman MD Active BACTRIM DS 800-160 MG ORAL TABLET 1 tab by mouth twice daily X 10 DAYS TRIMETHOPRIM-SULFAMETHOXAZOLE 90645347025 No Longer Active Tesfaye Sherman MD Active AMOXICILLIN 500 MG ORAL CAPSULE 1 cap by mouth three times a day AMOXICILLIN 21924986082 No Longer Active Adriana Arredondo, MARCUS A ctive B-12 1000 MCG ORAL LOZENGE 1 tab po daily CYANO COBALAMIN 28681412411 Active Tesfaye Sherman MD Active VITAMIN D3 2000 UNIT ORAL TABLET 1 daily, for vitamin D deficien cy CHOLECALCIFEROL 91302129486 No Longer Active Tesfaye Sherman MD Active ZITHROMAX 250 MG ORAL TABLET 2 po today, then 1 po q days 2-5 20 15/02/10 AZITHROMYCIN 25078887414 No Longer Active Tesfaye Sherman MD Active BACTRIM DS 800-160 MG ORAL TABLET 1 tab by mouth twice daily 201 03/03/23 TRIMETHOPRIM-SULFAMETHOXAZOLE 58675550124 No Longer Active Umer Sherman MD Active DIFLUCAN 150 MG ORAL TABLET 1 qd FLUCONAZOL E 39918694832 No Longer Active Kayla Cooper MD Active FLUTICASONE PROPIONATE 50 MCG/ACT NASAL SUSPENSION 1 spray each nostril twice daily FLUTICASONE PROPIONATE 16845353896 Active D patricia Sherman MD Active LOVASTATIN 20 MG ORAL TABLET Take 1 tablet by mouth daily LOVASTATIN 57118123394 No Longer Active Tesfaye Sherman MD Acti ve MELOXICAM 7.5 MG ORAL TABLET 1 tablet by mouth daily 2 MELOXICAM 40824362368 No Longer Active Tesfaye Sherman MD Acti ve GABAPENTIN 300 MG ORAL CAPSULE Take two tablets by mouth every e vening GABAPENTIN 32931088359 No Longer Active Edith Burch MD A ctive GABAPENTIN 300 MG ORAL CAPSULE Take two tablets by mouth every e vening GABAPENTIN 300 MG ORAL CAPSULE 382527 GABAPENTIN I nactive MELOXICAM 7.5 MG ORAL TABLET 1 tablet by mouth daily 2 MELOXICAM 7.5 MG ORAL TABLET 351912 MELOXICAM Inactive LOVASTATIN 20 MG ORAL TABLET Take 1 tablet by mouth daily LOVASTATIN 20 MG ORAL TABLET 997398 LOVASTATIN Inactive DIFLUCAN 150 MG ORAL TABLET 1 qd DIFLUCAN 150 MG ORAL TABLET 428055 FLUCONAZOLE Inactive VITAMIN D3 2000 UNIT ORAL TABLET 1 daily, for vitamin D deficien cy VITAMIN D3 2000 UNIT ORAL TABLET CHOLECALCIFEROL Inactive AMOXICILLIN 500 MG ORAL CAPSULE 1 cap by mouth three times a day AMOXICILLIN 500 MG ORAL CAPSULE 714589 AMOXICILLIN Inactive BACTRIM DS 800-160 MG ORAL TABLET 1 tab by mouth twice daily X 10 DAYS BACTRIM DS 800-160 MG ORAL TABLET 774954 TRIMETHOPRIM-SULFAMETHOXAZOLE Inactive TRIMETHOPRIM 100 MG ORAL TABLET 1/2 qd 7 TRIMETHOPRIM 100 MG ORAL TABLET 760174 TRIMETHOPRIM Inactive CETIRIZINE HCL 5 MG ORAL TABLET Take 1 tablet by mouth daily CETIRIZINE HCL 5 MG ORAL TABLET 8973095 CETIRIZINE HCL Inactive PRAMIPEXOLE DIHYDROCHLORIDE 0.125 MG ORAL TABLET take 1 tablet po qhs for restless leg syndrome. PRAMIPEXOLE DIHYD ROCHLORIDE 0.125 MG ORAL TABLET 021637 PRAMIPEXOLE DIHYDROCHLORIDE Inactive MIRTAZAPINE 15 MG ORAL TABLET 1/2 tab by mouth at bedtime. 03/13 MIRTAZAPINE 15 MG ORAL TABLET 332501 MIRTAZAPINE In active DIFLUCAN 100 MG ORAL TABLET 1 tablet by mouth daily X 3 DAYS 201 04/09/01 DIFLUCAN 100 MG ORAL TABLET 677493 FLUCONAZOLE Inac tive DIFLUCAN 100 MG ORAL TABLET 1 tablet by mouth every other da y for 2 doses DIFLUCAN 100 MG ORAL TABLET 396957 FLUCONAZOLE Inactive CEFTIN 250 MG ORAL TABLET 1 tablet twice daily x 7 days CEFTIN 250 MG ORAL TABLET CEFUROXIME AXETIL Inactive CYMBALTA 30 MG ORAL CAPSULE DELAYED RELEASE PARTICLES 1 cap by mouth daily with 60mg CYMBALTA 30 MG ORAL CAPSULE DELAYED RELEASE PARTICLES 727882 DULOXETINE HCL Inactive CYMBALTA 60 MG ORAL CAPSULE DELAYED RELEASE PARTICLES Take 1 tablet by mouth daily CYMBALTA 60 MG ORAL CAPSULE DELAYED RELEA SE PARTICLES 995524 DULOXETINE HCL Inactive FOSAMAX 70 MG ORAL TABLET 1 po qweek. Take 30min prio r to first food/drink. Avoid lying down x 1 hour. FOSAMAX 70 MG ORAL TA BLET 779459 ALENDRONATE SODIUM Inactive DIFLUCAN 100 MG ORAL TABLET 1 tablet by mouth daily 20 19/08/26 DIFLUCAN 100 MG ORAL TABLET 19760711 FLUCONAZOLE Inactive PREDNISONE 20 MG ORAL TABLET 1 tab twice daily for 3 d ay, then one daily for three days PREDNISONE 20 MG ORAL TABLET 717305 PREDNIS ONE Inactive PROAIR HFA 108 (90 BASE) MCG/ACT INHALATION AEROSOL SO LUTION 1 puff every 6 hours as needed PROAIR HFA 108 (90 B ASE) MCG/ACT INHALATION AEROSOL SOLUTION ALBUTEROL SULFATE Inactive MECLIZINE HCL 25 MG ORAL TABLET one tab po qday prn dizziness 20 17/09/06 MECLIZINE HCL 25 MG ORAL TABLET 337512 MECLIZINE HCL Inactive PREDNISONE 20 MG ORAL TABLET 1 tablet by mouth twice d aily for 3 days, then 1 tablet daily for 3 days PREDNISONE 20 MG ORAL TA BLET 231953 PREDNISONE Inactive DIFLUCAN 100 MG ORAL TABLET 1 tablet by mouth daily 20 20/06/06 DIFLUCAN 100 MG ORAL TABLET 19760711 FLUCONAZOLE Inactive REPHRESH PRO-B ORAL CAPSULE 1 tablet daily REPHRESH PRO-B ORAL CAPSULE LACTOBACILLUS Inactive RED YEAST RICE 600 MG ORAL CAPSULE 1 pill by mouth daily RED YEAST RICE 600 MG ORAL CAPSULE 038271 RED YEAST RICE EXTRACT In active SUDAFED [...] 20 19/02/09 DIFLUCAN 100 MG ORAL TABLET 141162 FLUCONAZOLE Inactive VENLAFAXINE HCL 75 MG ORAL TABLET 1 am 1/2 at noon 201 07/07/09 VENLAFAXINE HCL 75 MG ORAL TABLET 239808 VENLAFAXINE HCL Inacti ve GABAPENTIN 300 MG ORAL CAPSULE 1 po daily GABAPENTIN 300 MG ORAL CAPSULE 703642 GABAPENTIN Inactive SUDAFED 12 HOUR 120 MG ORAL TABLET EXTENDED RELEASE 12 HOUR 1 pill twice daily if needed for congestion SUDAFED 12 HOUR 120 MG ORAL TABLET EXTENDED RELEASE 12 HOUR PSEUDOEPHEDRINE HCL Inactive AMITRIPTYLINE HCL 10 MG ORAL TABLET 1 tablet nightly by mout h for neuropathy AMITRIPTYLINE HCL 10 MG ORAL TABLET 993438 AMITRIPTYLINE HCL Inactive AMITRIPTYLINE HCL 50 MG ORAL TABLET 1 po q hs for sleep AMITRIPTYLINE HCL 50 MG ORAL TABLET 356394 AMITRIPTYLINE HCL Inac tive PREDNISONE 20 MG ORAL TABLET 1 tab twice daily for 3 d ay, then one daily for three days PREDNISONE 20 MG ORAL TABLET 104445 PREDNIS ONE Inactive ROPINIROLE HCL 0.25 MG ORAL TABLET 1 TAB PO Q HS 05/31 ROPINIROLE HCL 0.25 MG ORAL TABLET 340296 ROPINIROLE HCL Inact trent ROPINIROLE HCL 0.5 MG ORAL TABLET 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 ROPINIROLE HCL 0.5 MG ORAL TABLET 205263 ROPINIR OLE HCL Inactive ROPINIROLE HCL 1 MG ORAL TABLET 1 tab po q hs ROPINIROLE HCL 1 MG ORAL TABLET 869154 ROPINIROLE HCL Inactive ROPINIROLE HCL 2 MG ORAL TABLET 1 po at hs 7 ROPINIROLE HCL 2 MG ORAL TABLET 231730 ROPINIROLE HCL Inactive MIRAPEX 0.125 MG ORAL TABLET 1 po nightly MIRAPEX 0.125 MG ORAL TABLET 536849 PRAMIPEXOLE DIHYDROCHLORIDE Inactive MIRAPEX 0.25 MG ORAL TABLET 1 tablet by mouth at night for r estless leg MIRAPEX 0.25 MG ORAL TABLET 147001 PRAM IPEXOLE DIHYDROCHLORIDE Inactive HYDROXYZINE HCL 25 MG ORAL TABLET 1 tab po at HS prn sleep 08/02 HYDROXYZINE HCL 25 MG ORAL TABLET 231909 HYDROXYZINE HC L Inactive DIFLUCAN 100 MG ORAL TABLET 1 tablet by mouth daily 20 21/08/28 DIFLUCAN 100 MG ORAL TABLET 499547 FLUCONAZOLE Inactive BACLOFEN 10 MG ORAL TABLET Take one tablet by mouth three times a day BACLOFEN 10 MG ORAL TABLET 037763 BACLOFEN Inact trent PREDNISONE 20 MG ORAL TABLET 1 tab twice daily for 3 d ay, then one daily for three days PREDNISONE 20 MG ORAL TABLET 093511 PREDNIS ONE Inactive UNISOM SLEEPMELTS 25 MG [...] 03/03/23 BACTRIM DS 800-160 MG ORAL TABLET 130590 TRIMETHOPRIM-SULFAMETHOXAZOLE Inactive ZITHROMAX 250 MG ORAL TABLET 2 po today, then 1 po q days 2-5 20 15/02/10 ZITHROMAX 250 MG ORAL TABLET 534567 AZITHROMYCIN Mayela ctive BACTRIM DS 800-160 MG ORAL TABLET 1 tab by mouth twice daily 201 04/04/11 BACTRIM DS 800-160 MG ORAL TABLET 683196 TRIMETHOPRIM-SULFAMETHOXAZOLE Inactive BACTRIM DS 800-160 MG ORAL [...] a day AMOXICILLIN 500 MG ORAL CAPSULE 636543 AMOXICILLIN Inactive ZITHROMAX 250 MG ORAL TABLET 2 po today, then 1 po q days 2-5 20 20/04/28 ZITHROMAX 250 MG ORAL TABLET 597105 AZITHROMYCIN Mayela ctive DIFLUCAN 100 MG ORAL TABLET 1 tablet by mouth daily 20 20/05/01 DIFLUCAN 100 MG ORAL TABLET 19760711 FLUCONAZOLE Inactive BACTRIM DS 800-160 MG ORAL TABLET 1 tab by mouth twice daily 201 06/09/02 BACTRIM DS 800-160 MG ORAL TABLET 19830105 TRIMETHOPRIM-SULFAMETHOXAZOLE Inactive HYDROCHLOROTHIAZIDE 12.5 MG ORAL CAPSULE 1 pill by mough daily 2 HYDROCHLOROTHIAZIDE 12.5 MG ORAL CAPSULE [facility] LOROTHIAZIDE Inactive BACTRIM DS 800-160 MG ORAL TABLET 1 tab by mouth twice daily 201 07/08/06 BACTRIM DS 800-160 MG ORAL TABLET 317379 TRIMETHOPRIM-SULFAMETHOXAZOLE Inactive DIFLUCAN 100 MG ORAL TABLET 1 tablet by mouth daily 21/03/11 DIFLUCAN 100 MG ORAL TABLET 19760711 FLUCONAZOLE Inactive ZITHROMAX 250 MG ORAL TABLET 2 po today, then 1 po q days 2-5 20 21/08/28 ZITHROMAX 250 MG ORAL TABLET 238862 AZITHROMYCIN Hyder ctive FLUCONAZOLE 100 MG ORAL TABLET 1 [...] LIVING WILL ON FILE DURABLE POWER OF SECOND VP HR ASSESSMENT FOR HEALTHCARE Vital Signs Date Name Value [...] Magnesium - Chemistry cholesterol, serum 196 mg/dL 524-508 5189/07/30 triglyceride, serum, fasting 86 mg/dL 30-200 HDL cholesterol, serum 41 mg/dL 32-60 LDL cholesterol, serum 138 mg/dL 0-130 sodium, serum 140 mmol/L 061-254 4771/07/30 carbon dioxide, venous blood 28.6 mmol/L 21.0-32 [...] 5.0-8.5 Encounters Code Encounter Date Provider Facility CPT-35467 [id number] Vst-Est Level IV 10:36:10 [facility] CPT-93679 [id number] Vst-Est Level IV 13:49:08 F[employer] E[employer]CEMENT OFFICER [facility] CPT-79056 [id number] Vst-Est Level IV 11:39:[address] [facility] CPT-43141 [id number] Vst-Est Level IV 14:08:03 [facility] CPT-77691 Level 3 Est. Patient 18:06:36 CDT Tesfaye pearson [facility] CPT-21664 [id number] Vst-Est Level IV 17:09:34 [facility] CPT-48013 Level 3 Est. Patient 17:27:08 CDT León hernandez [facility]N [facility] CPT-85572 [id number] Vst-Est Level IV 14:00:[address] [facility] CPT-17885 [id number] Vst-Est Level IV 19:27:[address] Tesfaye [facility] CPT-17518 [id number] Vst-Est Level IV 10:41:41 [facility] CPT-94587 [id number] Vst-Est Level III 09:40:56 CDT Tesfaye [facility] CPT-50676 Level 4 Est. Patient 22:18:12 CDT Tesfaye pearson MD [facility] CPT-56357 Level 4 Est. Patient 14:44:33 F[employer] ENF[employer]CEMENT OFFICER Tesfaye pearson [facility] CPT-07047 Level 4 Est. Patient 13:55:29 FARE ENFORCEMENT OFFICER Tesfaye pearson MD [facility] CPT-15999 Level 4 Est. Patient 17:07:34 FARE ENFORCEMENT OFFICER Tesfaye pearson MD [facility] CPT-23110 Level 4 Est. Patient 13:56:54 CDT Tesfaye pearson MD [facility]-47818 Level 4 Est. Patient 13:24:25 CDT Chelsea sanz APRN [facility] CPT-49510 Level 4 Est. Patient 09:14:56 CDT Tesfaye pearson MD [facility]-09937 Level 4 Est. Patient 18:40:25 FARE ENFORCEMENT OFFICER Tesfaye pearson MD [facility]-84377 Level 4 Est. Patient 18:13:07 FARE ENFORCEMENT OFFICER Tesfaye pearson MD [facility]-03873 Level 3 Est. Patient 10:46:32 CDT Rj cotto DO [facility] CPT-92075 Level 4 Est. Patient 20:19:25 CDT Tesfaye pearson MD [facility]-00358 Level 3 Est. Patient 09:07:31 CDT Tesfaye pearson MD [facility]-00326 Level 4 Est. Patient 13:12:56 CDT Tesfaye pearson MD [facility]-15568 Level 4 Est. Patient 21:24:55 FARE ENFORCEMENT OFFICER Tesfaye pearson MD [facility]-98018 Level 3 Est. Patient 13:45:04 FARE ENFORCEMENT OFFICER Tesfaye pearson MD [facility] CPT-11649 Level 4 Est. Patient 13:50:45 CDT Tesfaye pearson MD [facility] CPT-54099 Level 3 Est. Patient 10:16:10 CDT Tesfaye pearson MD [facility] CPT-01685 Level 3 Est. Patient 16:36:07 FARE ENFORCEMENT OFFICER Kayla jameson MD [facility]-65008 Level 4 Est. Patient 16:00:14 FARE ENFORCEMENT OFFICER Tesfaye [facility]son [facility] CPT-24926 Level 4 Est. Patient 11:02:24 FARE ENFORCEMENT OFFICER Tesfaye pearson MD [facility] CPT-63387 Level 3 Est. Patient 20:21:43 FARE ENFORCEMENT OFFICER Kayla jameson MD [facility] CPT-23489 Level 3 Est. Patient 13:27:28 FARE ENFORCEMENT OFFICER Kayla jameson MD [facility] CPT-50709 Level 4 Est. Patient 15:57:17 FARE ENFORCEMENT OFFICER Tesfaye pearson MD [facility] CPT-52237 Level 3 New Patient 13:25:47 CDT Tesfaye kidd MD [facility] CPT-22673 Level 3 New Patient 17:22:21 CDT J [facility] Procedures Code Procedure Name Date Entry Date Standard Desc ription [id number] (4274F 2P) Patient Reason Influenza immu nization not administered 13:25:19 FARE ENFORCEMENT OFFICER CPT-93039 Bone Density - XRAY USE ONLY 15:21:33 CDT 2 CPT-70625 Venipuncture Draw Fee 16:12:22 CDT CPT-G0439 Subsequent Annual Wellness Exam 18:06:36 CDT CPT-G0439 Subsequent Annual Wellness Exam 22:18:11 CDT CPT-97762 Bone Density - XRAY USE ONLY 11:43:58 CDT CPT-22878 Bone Density - XRAY USE ONLY 10:05:16 CDT 2 CPT-46054 Prv Med New Pt 40-64 yrs 18:19:25 CDT 2016 CPT-63143 Foot, right, comp min 3V - XRAY USE ONLY 10:38:34 CDT CPT-G0439 Subsequent Annual Wellness Exam 13:55:04 CDT CPT-G0438 Initial Annual Wellness Exam 11:23:17 CD T CPT-J2930 Solu Medrol 125 mg (Methyl Prednisolone Sodium Succinate) 17:29:12 [employer] CPT-38065 Abx/Therapy Injection 17:29:11 [employer] CPT-J2930 Solu Medrol 125 mg (Methyl Prednisolone Sodium Succinate) 12:34:38 [employer] CPT-J3420 Vitamin B12 1000mcg (Cyanocobalamin) 09:12:55 CDT CPT-J3420 Vitamin B12 1000mcg (Cyanocobalamin) 16:28:06 [employer] CPT-43993 Venipuncture Draw Fee 08:39:53 CDT CPT-J3420 Vitamin B12 1000mcg (Cyanocobalamin) 08:46:22 CDT CPT-22410 Abx/Therapy Injection 08:46:22 CDT CPT-J3420 Vitamin B12 1000mcg (Cyanocobalamin) 08:41:26 CDT CPT-33292 Abx/Therapy Injection 08:41:26 CDT CPT-J3420 Vitamin B12 1000mcg (Cyanocobalamin) 08:57:15 CDT CPT-52052 Abx/Therapy Injection 08:57:15 CDT CPT-J3420 Vitamin B12 1000mcg (Cyanocobalamin) 10:59:03 CDT CPT-64483 Abx/Therapy Injection 10:59:03 CDT CPT-J3420 Vitamin B12 1000mcg (Cyanocobalamin) 15:05:39 CDT CPT-93604 Abx/Therapy Injection 15:05:39 CDT CPT-J3420 Vitamin B12 1000mcg (Cyanocobalamin) 13:50:45 CDT CPT-J3420 Vitamin B12 1000mcg (Cyanocobalamin) 08:48:55 CDT CPT-89187 Abx/Therapy Injection 08:48:55 CDT CPT-J3420 Vitamin B12 1000mcg (Cyanocobalamin) 09:14:54 CDT CPT-85919 Abx/Therapy Injection 09:14:54 CDT CPT-J3420 Vitamin B12 1000mcg (Cyanocobalamin) 09:06:06 CDT CPT-19821 Abx/Therapy Injection 09:06:06 CDT CPT-J3420 Vitamin B12 1000mcg (Cyanocobalamin) 09:49:14 CDT CPT-36846 Abx/Therapy Injection 09:49:14 CDT CPT-J3420 Vitamin B12 1000mcg (Cyanocobalamin) 09:10:30 [employer] CPT-13955 Abx/Therapy Injection 09:10:30 [employer] CPT-J3420 Vitamin B12 1000mcg (Cyanocobalamin) 09:11:07 [employer] CPT-44977 Abx/Therapy Injection 09:11:07 [employer] CPT-J3420 Vitamin B12 1000mcg (Cyanocobalamin) 09:57:03 [employer] CPT-13567 Abx/Therapy Injection 09:57:03 [employer] CPT-J3420 Vitamin B12 1000mcg (Cyanocobalamin) 09:23:21 [employer] CPT-80023 Abx/Therapy Injection 09:23:21 [employer] CPT-43218 Urine Dip (Floor Use Only) 20:21:44 [employer] 201 02/12/11 CPT-12045 UA Dip Auto (Floor Use Only) 10:04:39 [employer] 2 CPT-97052 Urine Dip (Floor Use Only) 13:27:28 [employer] 201 02/12/01 CPT-43698 Bladder Scan 13:27:28 [employer] CPT-53333 Abd single AP View 14:30:51 [employer] CPT-OV Office Visit 10:15:43 CDT CPT-19780 Urine Dip (Floor Use Only) 17:22:21 CDT 201 02/09/02 CPT-24759 Bladder Scan 17:22:21 CDT
--- OUTSIDE RECORDS SUMMARY | 2020-05-05 11:02 | XMS REPORT | Clinical Summary ---
Author Author Talon, Jeri Wood Organization [employer] Address Unknown Phone Unavailable Allergies, Adverse Reactions, [...] Sherman MD Routine general medical examination at [facility] acility Sinusitis 461.9 Resolved Tesfaye Sherman MD [...] MD Routine general medical examination at a [facility] acility Body Mass Index [...] Tesfaye Sherman MD Dysuria High risk meds emt intermediate use V58.6 Active Tesfaye Sherman MD Long-term (current) drug use Yeast infection 112.9 Inactive Tesfaye Sherman MD Candidiasis of unspecified site Upper respiratory infection 465.9 Inactive Tesfaye Sherman MD Acute upper respiratory infections of un specified site Lower extremity edema, bilateral 782.3 Active 201 07/07/09 León Kodi PITCH FILLER Edema Peripheral neuropathy 356.9 Active Tesfaye lamb [...] qhs for restless leg syndrome. PRAMIPEXOLE DIHYDROCHLORIDE [id number] Acti ve Tesfaye Sherman MD Active DIFLUCAN 100 MG ORAL TABLET 1 tablet by mouth daily 20 23/12/05 FLUCONAZOLE 32664475795 No Longer Active Tesfaye Sherman MD Acti ve [facility] NIACIN FLUSH FREE 400-100 MG ORAL CAPSULE 1 daily NIACIN-INOSITOL 73208041701 No Longer Active Tesfaye Sherman MD A ctive FISH OIL 1000 MG ORAL CAPSULE DELAYED RELEASE 1 pill b y mouth daily for cholesterol OMEGA-3 FATTY ACIDS 08759207835 No Longe r Active Tesfaye Sherman MD Active UNISOM SLEEPMELTS 25 MG ORAL TABLET DISINTEGRATING 1.5 po q hs DIPHENHYDRAMINE HCL (SLEEP) 96787212493 No Longer Active Venkata Sherman MD Active PREDNISONE 20 MG ORAL TABLET 1 tab twice daily for 3 d ay, then one daily for three days PREDNISONE 51399870477 No Longer Active Tesfaye Sherman MD Active BACLOFEN 10 MG ORAL TABLET Take one tablet by mouth three times a day BACLOFEN 01232501740 No Longer Active Tesfaye Sherman MD Active LIDOCAINE 4 % EXTERNAL CREAM Apply to back prn pain LIDOCAINE 90214861147 Active Tesfaye Sherman MD Active TIZANIDINE HCL 2 MG ORAL TABLET 2 Mg in the AM and 6mg q hs 07/05 TIZANIDINE HCL 92693754755 Active Tesfaye Sherman MD Active HYDROXYZINE HCL 25 MG TABS TAKE 1 TABLET BY MOUTH AT B EDTIME NEEDED FOR SLEEP HYDROXYZINE HCL 38212214660 Active JOSHUA Lindsay Active FLUCONAZOLE 100 MG ORAL TABLET 1 by mouth daily for yeast infect ion FLUCONAZOLE 57153965136 No Longer Active Laurence Dominguez Acti ve ZITHROMAX 250 MG ORAL TABLET 2 po today, then 1 po q days 2-5 20 21/08/28 AZITHROMYCIN 68353523540 No Longer Active Tesfaye Sherman MD Active DIFLUCAN 100 MG ORAL TABLET 1 tablet by mouth daily 20 21/08/28 FLUCONAZOLE 95267493727 No Longer Active Tesfaye Sherman MD Acti ve HYDROXYZINE HCL 25 MG ORAL TABLET 1 tab po at HS prn sleep 08/02 HYDROXYZINE HCL 81194947925 No Longer Active Tesfaye Sherman MD Active MIRAPEX 0.5 MG ORAL TABLET 1 tablet at night for restless leg. 2018 PRAMIPEXOLE DIHYDROCHLORIDE 02033697385 Active Laurenceyohana Dominguez Active MIRAPEX 0.25 MG ORAL TABLET 1 tablet by mouth at night for r estless leg PRAMIPEXOLE DIHYDROCHLORIDE 47953370306 No Longer Act trent Laurenceyohana Dominguez Active MIRAPEX 0.125 MG ORAL TABLET 1 po nightly PRAMIPEXOLE DIHYDROCHLORIDE 94838137383 No Longer Active Laurence Dominguez Active ROPINIROLE HCL 2 MG ORAL TABLET 1 po at hs ROPI NIROLE HCL 31434976378 No Longer Active Laurenceyohana Dominguez Active ROPINIROLE HCL 1 MG ORAL TABLET 1 tab po q hs ROPINIROLE HCL 14413070186 No Longer Active Laurence Dominguez Active ROPINIROLE HCL 0.5 MG ORAL TABLET 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 ROPINIROLE HCL 85471852436 No Longer Active MARCUS Panchal Active ROPINIROLE HCL 0.25 MG ORAL TABLET 1 TAB PO Q HS 05/31 ROPINIROLE HCL 53250093257 No Longer Active Tesfaye Sherman MD Ac tive PREDNISONE 20 MG ORAL TABLET 1 tab twice daily for 3 d ay, then one daily for three days PREDNISONE 89822177536 No Longer Active Tesfaye Sherman MD Active AMITRIPTYLINE HCL 50 MG ORAL TABLET 1 po q hs for sleep AMITRIPTYLINE HCL 32648289052 No Longer Active Tesfaye Sherman MD Active AMITRIPTYLINE HCL 10 MG ORAL TABLET 1 tablet nightly by mout h for neuropathy AMITRIPTYLINE HCL 73632473706 No Longer Active MARCUS Stapleton Active DIFLUCAN 100 MG ORAL TABLET 1 tablet by mouth daily 20 21/03/11 FLUCONAZOLE 39257247416 No Longer Active Tesfaye Sherman MD Acti ve BACTRIM DS 800-160 MG ORAL TABLET 1 tab by mouth twice daily 201 07/08/06 TRIMETHOPRIM-SULFAMETHOXAZOLE 37731144083 No Longer Active Umer Sherman MD Active CLARITIN 10 MG ORAL TABLET Take one by mouth daily LORATADINE 08937409602 Active Tesfaye Sherman MD Active SUDAFED 12 HOUR 120 MG ORAL TABLET EXTENDED RELEASE 12 HOUR 1 pill twice daily if needed for congestion PSEUDOEPHEDRINE HCL 602927024 13 No Longer Active Tesfaye Sherman MD Active FENOFIBRATE 145 MG ORAL TABLET 1 by mouth daily FENOFIBRATE 88462147262 Active Laurence Dominguez Active GABAPENTIN 300 MG ORAL CAPSULE 1 po daily GABAP ENTIN 18871058644 No Longer Active Tesfaye Sherman MD Active HYDROCHLOROTHIAZIDE 12.5 MG ORAL CAPSULE 1 pill by mough daily 2 HYDROCHLOROTHIAZIDE 04691648163 No Longer Active León Mariee APRN Active VENLAFAXINE HCL 75 MG ORAL TABLET 1 am 1/2 at noon 201 07/07/09 VENLAFAXINE HCL 25300157244 No Longer Active León Mariee APRN Act trent DIFLUCAN 100 MG ORAL TABLET 1 tablet by mouth daily 20 19/02/09 FLUCONAZOLE 97993089121 No Longer Active León Kodi PITCH FILLER Active DIFLUCAN 100 MG ORAL TABLET 1 tablet by mouth daily 20 19/02/09 FLUCONAZOLE 64552931155 No Longer Active León Mariee APRN Active OXYCODONE-ACETAMINOPHEN 5-325 MG ORAL TABLET Take one tablet by mouth every 6 hours 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 Use sparingly OXYCODONE-ACETAMINOPHEN 20789640860 Active Tesfaye villar MD Active CLONAZEPAM 0.5 MG ORAL TABLET Take 1/2 qam, and 1/2 qpm CLONAZEPAM 99418146698 Active Tesfaye Sherman MD Active PRELIEF 340 (65-50) MG (CA-P) ORAL TABLET CALCIUM GLYCEROPHOSPHATE 95401868755 No Longer Active Tesfaye Sherman MD Active SUDAFED 24 HOUR 240 MG ORAL TABLET EXTENDED RELEASE 24 HOUR 1 tab po daily PSEUDOEPHEDRINE HCL 00083931638 No Longer Active Raul Sherman MD Active RED YEAST RICE 600 MG ORAL CAPSULE 1 pill by mouth daily RED YEAST RICE EXTRACT 88383000836 No Longer Active Tesfaye Sherman MD Active REPHRESH PRO-B ORAL CAPSULE 1 tablet daily LACT OBACILLUS 33465861860 No Longer Active Tesfaye Sherman MD Active ABILIFY 2 MG ORAL TABLET 1 by mouth daily. MARIA ELENA PIPRAZOLE 00713990708 Active Tesfaye Sherman MD Active CYMBALTA 60 MG ORAL CAPSULE DELAYED RELEASE PARTICLES 1 cap by mouth daily for pain DULOXETINE HCL 67619779676 Active MARCUS Lindsay Active DIFLUCAN 100 MG ORAL TABLET 1 tablet by mouth daily 20 20/06/06 FLUCONAZOLE 62340801904 No Longer Active Tesfaye Sherman MD Acti ve PREDNISONE 20 MG ORAL TABLET 1 tablet by mouth twice d aily for 3 days, then 1 tablet daily for 3 days PREDNISONE 91849628113 No L onger Active Tesfaye Sherman MD Active BACTRIM DS 800-160 MG ORAL TABLET 1 tab by mouth twice daily 201 06/09/02 TRIMETHOPRIM-SULFAMETHOXAZOLE 81009369660 No Longer Active Fer Dominguez Active DIFLUCAN 100 MG ORAL TABLET 1 tablet by mouth daily 20 20/05/01 FLUCONAZOLE 90923420852 No Longer Active Tesfaye Sherman MD Acti ve ZITHROMAX 250 MG ORAL TABLET 2 po today, then 1 po q days 2-5 20 20/04/28 AZITHROMYCIN 63931716968 No Longer Active Tesfaye Sherman MD Active MECLIZINE HCL 25 MG ORAL TABLET one tab po qday prn dizziness 20 17/09/06 MECLIZINE HCL 85512332387 No Longer Active Tesfaye Sherman MD Active PROAIR HFA 108 (90 BASE) MCG/ACT INHALATION AEROSOL SO LUTION 1 puff every 6 hours as needed ALBUTEROL SULFATE 50215771338 No Long er Active Tesfaye Sherman MD Active PREDNISONE 20 MG ORAL TABLET 1 tab twice daily for 3 d ay, then one daily for three days PREDNISONE 14125039353 No Longer Active Tesfaye Sherman MD Active MECLIZINE HCL 25 MG ORAL TABLET one 4 times a day as needed for dizziness MECLIZINE HCL 48106049035 Active Tesfaye Sherman MD Active AMOXICILLIN 500 MG ORAL CAPSULE 1 cap by mouth three times a day AMOXICILLIN 91356317740 No Longer Active Laurence Dominguez Acti ve DIFLUCAN 100 MG ORAL TABLET 1 tablet by mouth daily 20 19/08/26 FLUCONAZOLE 54455057836 No Longer Active Tesfaye Sherman MD Acti ve BACTRIM DS 800-160 MG ORAL TABLET 1 tab by mouth twice daily 201 05/10/28 TRIMETHOPRIM-SULFAMETHOXAZOLE 48548424278 No Longer Active A mirna Dominguez Active FOSAMAX 70 MG ORAL TABLET 1 po qweek. Take 30min prio r to first food/drink. Avoid lying down x 1 hour. ALENDRONATE SODIUM 49099630 144 No Longer Active Laurence Lopezduyen Active CYMBALTA 60 MG ORAL CAPSULE DELAYED RELEASE PARTICLES Take 1 tablet by mouth daily DULOXETINE HCL 71075926104 No Longer Active Edith Burch MD Active CYMBALTA 30 MG ORAL CAPSULE DELAYED RELEASE PARTICLES 1 cap by mouth daily with 60mg DULOXETINE HCL 56371154164 No Longer Active Jordan Burch MD Active DIFLUCAN 100 MG ORAL TABLET 1 tablet by mouth daily 19/03/05 FLUCONAZOLE 81277047314 No Longer Active Tesfaye Sherman MD Acti ve BACTRIM DS 800-160 MG ORAL TABLET 1 tab by mouth twice daily 201 05/06/28 TRIMETHOPRIM-SULFAMETHOXAZOLE 87517374145 No Longer Active Umer Sherman MD Active BACTRIM DS 800-160 MG ORAL TABLET 1 tab by mouth twice daily 201 05/04/15 TRIMETHOPRIM-SULFAMETHOXAZOLE 32686113641 No Longer Active Umer Sherman MD Active DIFLUCAN 150 MG ORAL TABLET 1 tablet by mouth daily 20 18/09/20 FLUCONAZOLE 58287035359 No Longer Active Tesfaye Sherman MD Acti ve BACTRIM DS 800-160 MG ORAL TABLET 1 tab by mouth twice daily 201 04/13/17 TRIMETHOPRIM-SULFAMETHOXAZOLE 32724148095 No Longer Active Umer Sherman MD Active CEFTIN 250 MG ORAL TABLET 1 tablet twice daily x 7 days CEFUROXIME AXETIL 28562182197 No Longer Active Tesfaye Sherman MD Active DIFLUCAN 100 MG ORAL TABLET 1 tablet by mouth every other da y for 2 doses FLUCONAZOLE 52288827040 No Longer Active Tesfaye barron MD Active DIFLUCAN 100 MG ORAL TABLET 1 tablet by mouth daily X 3 DAYS 201 04/09/01 FLUCONAZOLE 82025991638 No Longer Active Rj Moss DO Ac tive MIRTAZAPINE 15 MG ORAL TABLET 1/2 tab by mouth at bedtime. 03/13 MIRTAZAPINE 85899441056 No Longer Active Tesfaye Sherman MD Active BACTRIM DS 800-160 MG ORAL TABLET 1 tab by mouth twice daily 201 04/09/01 TRIMETHOPRIM-SULFAMETHOXAZOLE 76063604977 No Longer Active Umer Sherman MD Active PRAMIPEXOLE DIHYDROCHLORIDE 0.125 MG ORAL TABLET take 1 tablet po qhs for restless leg syndrome. PRAMIPEXOLE DIHYDROCHLORI DE 84877389780 No Longer Active Tesfaye Sherman MD Active MAGNESIUM 400 MG ORAL TABLET 1 tab po daily MAGNE SIUM 66069857644 Active Chelsea Areyvon PITCH FILLER Active CETIRIZINE HCL 5 MG ORAL TABLET Take 1 tablet by mouth daily CETIRIZINE HCL 63496561797 No Longer Active Chelsea Arell PITCH FILLER Activ e TRIMETHOPRIM 100 MG ORAL TABLET 1/2 qd TRIM ETHOPRIM 53168286251 No Longer Active Chelsea Cardenas APRN Active BACTRIM DS 800-160 MG ORAL TABLET 1 tab by mouth twice daily 201 04/04/11 TRIMETHOPRIM-SULFAMETHOXAZOLE 64868418636 No Longer Active Umer Sherman MD Active BACTRIM DS 800-160 MG ORAL TABLET 1 tab by mouth twice daily X 10 DAYS TRIMETHOPRIM-SULFAMETHOXAZOLE 98098056910 No Longer Active Tesfaye Sherman MD Active AMOXICILLIN 500 MG ORAL CAPSULE 1 cap by mouth three times a day AMOXICILLIN 23916470201 No Longer Active Adriana Arredondo, MARCUS A ctive B-12 1000 MCG ORAL LOZENGE 1 tab po daily CYANO COBALAMIN 89392678736 Active Tesfaye Sherman MD Active VITAMIN D3 2000 UNIT ORAL TABLET 1 daily, for vitamin D deficien cy CHOLECALCIFEROL 72277346543 No Longer Active Tesfaye Sherman MD Active ZITHROMAX 250 MG ORAL TABLET 2 po today, then 1 po q days 2-5 20 15/02/10 AZITHROMYCIN 12489913415 No Longer Active Tesfaye Sherman MD Active BACTRIM DS 800-160 MG ORAL TABLET 1 tab by mouth twice daily 201 03/03/23 TRIMETHOPRIM-SULFAMETHOXAZOLE 01255191278 No Longer Active Umer Sherman MD Active DIFLUCAN 150 MG ORAL TABLET 1 qd FLUCONAZOL E 95297450939 No Longer Active Kayla Cooper MD Active FLUTICASONE PROPIONATE 50 MCG/ACT NASAL SUSPENSION 1 spray each nostril twice daily FLUTICASONE PROPIONATE 58853432629 Active D patricia Sherman MD Active LOVASTATIN 20 MG ORAL TABLET Take 1 tablet by mouth daily LOVASTATIN 09837780744 No Longer Active Tesfaye Sherman MD Acti ve MELOXICAM 7.5 MG ORAL TABLET 1 tablet by mouth daily 2 MELOXICAM 71083372612 No Longer Active Tesfaye Sherman MD Acti ve GABAPENTIN 300 MG ORAL CAPSULE Take two tablets by mouth every e vening GABAPENTIN 67868184800 No Longer Active Edith Burch MD A ctive GABAPENTIN 300 MG ORAL CAPSULE Take two tablets by mouth every e vening GABAPENTIN 300 MG ORAL CAPSULE 595509 GABAPENTIN I nactive MELOXICAM 7.5 MG ORAL TABLET 1 tablet by mouth daily 2 MELOXICAM 7.5 MG ORAL TABLET 899730 MELOXICAM Inactive LOVASTATIN 20 MG ORAL TABLET Take 1 tablet by mouth daily LOVASTATIN 20 MG ORAL TABLET 680527 LOVASTATIN Inactive DIFLUCAN 150 MG ORAL TABLET 1 qd DIFLUCAN 150 MG ORAL TABLET 985415 FLUCONAZOLE Inactive VITAMIN D3 2000 UNIT ORAL TABLET 1 daily, for vitamin D deficien cy VITAMIN D3 2000 UNIT ORAL TABLET CHOLECALCIFEROL Inactive AMOXICILLIN 500 MG ORAL CAPSULE 1 cap by mouth three times a day AMOXICILLIN 500 MG ORAL CAPSULE 961116 AMOXICILLIN Inactive BACTRIM DS 800-160 MG ORAL TABLET 1 tab by mouth twice daily X 10 DAYS BACTRIM DS 800-160 MG ORAL TABLET 108145 TRIMETHOPRIM-SULFAMETHOXAZOLE Inactive TRIMETHOPRIM 100 MG ORAL TABLET 1/2 qd 7 TRIMETHOPRIM 100 MG ORAL TABLET 093377 TRIMETHOPRIM Inactive CETIRIZINE HCL 5 MG ORAL TABLET Take 1 tablet by mouth daily CETIRIZINE HCL 5 MG ORAL TABLET 7974588 CETIRIZINE HCL Inactive PRAMIPEXOLE DIHYDROCHLORIDE 0.125 MG ORAL TABLET take 1 tablet po qhs for restless leg syndrome. PRAMIPEXOLE DIHYD ROCHLORIDE 0.125 MG ORAL TABLET 772386 PRAMIPEXOLE DIHYDROCHLORIDE Inactive MIRTAZAPINE 15 MG ORAL TABLET 1/2 tab by mouth at bedtime. 03/13 MIRTAZAPINE 15 MG ORAL TABLET 021900 MIRTAZAPINE In active DIFLUCAN 100 MG ORAL TABLET 1 tablet by mouth daily X 3 DAYS 201 04/09/01 DIFLUCAN 100 MG ORAL TABLET 653037 FLUCONAZOLE Inac tive DIFLUCAN 100 MG ORAL TABLET 1 tablet by mouth every other da y for 2 doses DIFLUCAN 100 MG ORAL TABLET 384643 FLUCONAZOLE Inactive CEFTIN 250 MG ORAL TABLET 1 tablet twice daily x 7 days CEFTIN 250 MG ORAL TABLET CEFUROXIME AXETIL Inactive CYMBALTA 30 MG ORAL CAPSULE DELAYED RELEASE PARTICLES 1 cap by mouth daily with 60mg CYMBALTA 30 MG ORAL CAPSULE DELAYED RELEASE PARTICLES 001561 DULOXETINE HCL Inactive CYMBALTA 60 MG ORAL CAPSULE DELAYED RELEASE PARTICLES Take 1 tablet by mouth daily CYMBALTA 60 MG ORAL CAPSULE DELAYED RELEA SE PARTICLES 598937 DULOXETINE HCL Inactive FOSAMAX 70 MG ORAL TABLET 1 po qweek. Take 30min prio r to first food/drink. Avoid lying down x 1 hour. FOSAMAX 70 MG ORAL TA BLET 182409 ALENDRONATE SODIUM Inactive DIFLUCAN 100 MG ORAL TABLET 1 tablet by mouth daily 20 19/08/26 DIFLUCAN 100 MG ORAL TABLET 19760711 FLUCONAZOLE Inactive PREDNISONE 20 MG ORAL TABLET 1 tab twice daily for 3 d ay, then one daily for three days PREDNISONE 20 MG ORAL TABLET 223268 PREDNIS ONE Inactive PROAIR HFA 108 (90 BASE) MCG/ACT INHALATION AEROSOL SO LUTION 1 puff every 6 hours as needed PROAIR HFA 108 (90 B ASE) MCG/ACT INHALATION AEROSOL SOLUTION ALBUTEROL SULFATE Inactive MECLIZINE HCL 25 MG ORAL TABLET one tab po qday prn dizziness 20 17/09/06 MECLIZINE HCL 25 MG ORAL TABLET 171229 MECLIZINE HCL Inactive PREDNISONE 20 MG ORAL TABLET 1 tablet by mouth twice d aily for 3 days, then 1 tablet daily for 3 days PREDNISONE 20 MG ORAL TA BLET 380701 PREDNISONE Inactive DIFLUCAN 100 MG ORAL TABLET 1 tablet by mouth daily 20 20/06/06 DIFLUCAN 100 MG ORAL TABLET 19760711 FLUCONAZOLE Inactive REPHRESH PRO-B ORAL CAPSULE 1 tablet daily REPHRESH PRO-B ORAL CAPSULE LACTOBACILLUS Inactive RED YEAST RICE 600 MG ORAL CAPSULE 1 pill by mouth daily RED YEAST RICE 600 MG ORAL CAPSULE 844580 RED YEAST RICE EXTRACT In active SUDAFED [...] 20 19/02/09 DIFLUCAN 100 MG ORAL TABLET 464732 FLUCONAZOLE Inactive VENLAFAXINE HCL 75 MG ORAL TABLET 1 am 1/2 at noon 201 07/07/09 VENLAFAXINE HCL 75 MG ORAL TABLET 257217 VENLAFAXINE HCL Inacti ve GABAPENTIN 300 MG ORAL CAPSULE 1 po daily GABAPENTIN 300 MG ORAL CAPSULE 570933 GABAPENTIN Inactive SUDAFED 12 HOUR 120 MG ORAL TABLET EXTENDED RELEASE 12 HOUR 1 pill twice daily if needed for congestion SUDAFED 12 HOUR 120 MG ORAL TABLET EXTENDED RELEASE 12 HOUR PSEUDOEPHEDRINE HCL Inactive AMITRIPTYLINE HCL 10 MG ORAL TABLET 1 tablet nightly by mout h for neuropathy AMITRIPTYLINE HCL 10 MG ORAL TABLET 569703 AMITRIPTYLINE HCL Inactive AMITRIPTYLINE HCL 50 MG ORAL TABLET 1 po q hs for sleep AMITRIPTYLINE HCL 50 MG ORAL TABLET 411759 AMITRIPTYLINE HCL Inac tive PREDNISONE 20 MG ORAL TABLET 1 tab twice daily for 3 d ay, then one daily for three days PREDNISONE 20 MG ORAL TABLET 716979 PREDNIS ONE Inactive ROPINIROLE HCL 0.25 MG ORAL TABLET 1 TAB PO Q HS 05/31 ROPINIROLE HCL 0.25 MG ORAL TABLET 687940 ROPINIROLE HCL Inact trent ROPINIROLE HCL 0.5 MG ORAL TABLET 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 ROPINIROLE HCL 0.5 MG ORAL TABLET 278138 ROPINIR OLE HCL Inactive ROPINIROLE HCL 1 MG ORAL TABLET 1 tab po q hs ROPINIROLE HCL 1 MG ORAL TABLET 721830 ROPINIROLE HCL Inactive ROPINIROLE HCL 2 MG ORAL TABLET 1 po at hs 7 ROPINIROLE HCL 2 MG ORAL TABLET 986147 ROPINIROLE HCL Inactive MIRAPEX 0.125 MG ORAL TABLET 1 po nightly MIRAPEX 0.125 MG ORAL TABLET 046049 PRAMIPEXOLE DIHYDROCHLORIDE Inactive MIRAPEX 0.25 MG ORAL TABLET 1 tablet by mouth at night for r estless leg MIRAPEX 0.25 MG ORAL TABLET 365162 PRAM IPEXOLE DIHYDROCHLORIDE Inactive HYDROXYZINE HCL 25 MG ORAL TABLET 1 tab po at HS prn sleep 08/02 HYDROXYZINE HCL 25 MG ORAL TABLET 977797 HYDROXYZINE HC L Inactive DIFLUCAN 100 MG ORAL TABLET 1 tablet by mouth daily 20 21/08/28 DIFLUCAN 100 MG ORAL TABLET 147736 FLUCONAZOLE Inactive BACLOFEN 10 MG ORAL TABLET Take one tablet by mouth three times a day BACLOFEN 10 MG ORAL TABLET 678215 BACLOFEN Inact trent PREDNISONE 20 MG ORAL TABLET 1 tab twice daily for 3 d ay, then one daily for three days PREDNISONE 20 MG ORAL TABLET 180416 PREDNIS ONE Inactive UNISOM SLEEPMELTS 25 MG [...] 03/03/23 BACTRIM DS 800-160 MG ORAL TABLET 264578 TRIMETHOPRIM-SULFAMETHOXAZOLE Inactive ZITHROMAX 250 MG ORAL TABLET 2 po today, then 1 po q days 2-5 20 15/02/10 ZITHROMAX 250 MG ORAL TABLET 827420 AZITHROMYCIN Mayela ctive BACTRIM DS 800-160 MG ORAL TABLET 1 tab by mouth twice daily 201 04/04/11 BACTRIM DS 800-160 MG ORAL TABLET 588179 TRIMETHOPRIM-SULFAMETHOXAZOLE Inactive BACTRIM DS 800-160 MG ORAL [...] a day AMOXICILLIN 500 MG ORAL CAPSULE 021701 AMOXICILLIN Inactive ZITHROMAX 250 MG ORAL TABLET 2 po today, then 1 po q days 2-5 20 20/04/28 ZITHROMAX 250 MG ORAL TABLET 205730 AZITHROMYCIN Mayela ctive DIFLUCAN 100 MG ORAL [...] 07/08/06 BACTRIM DS 800-160 MG ORAL TABLET 258470 TRIMETHOPRIM-SULFAMETHOXAZOLE Inactive DIFLUCAN 100 MG ORAL TABLET 1 tablet by mouth daily 21/03/11 DIFLUCAN 100 MG ORAL TABLET 19760711 FLUCONAZOLE Inactive ZITHROMAX 250 MG ORAL TABLET 2 po today, then 1 po q days 2-5 20 21/08/28 ZITHROMAX 250 MG ORAL TABLET 721852 AZITHROMYCIN [place] ctive FLUCONAZOLE 100 MG ORAL TABLET 1 [...] LIVING WILL ON FILE 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 Vital Signs Date Name Value [...] Magnesium - Chemistry cholesterol, serum 196 mg/dL 160-094 2149/07/30 triglyceride, serum, fasting 86 mg/dL 30-200 HDL cholesterol, serum 41 mg/dL 32-60 LDL cholesterol, serum 138 mg/dL 0-130 sodium, serum 140 mmol/L 997-227 2440/07/30 carbon dioxide, venous blood 28.6 mmol/L 21.0-32 [...] 5.0-8.5 Encounters Code Encounter Date Provider Facility CPT-06493 [id number] Vst-Est Level IV 10:36:10 C [facility] CPT-08049 [id number] Vst-Est Level IV 13:49:08 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 Mendyeh Stovallord [facility] CPT-09540 [id number] Vst-Est Level IV 11:39:[address] Tesfaye Sherman MD [facility] CPT-48043 [id number] Vst-Est Level IV 14:08:03 C [facility]GET Sherman MD [facility] CPT-07906 Level 3 Est. Patient 18:06:36 CDT Tesfaye pearson MD [facility] CPT-95976 [id number] Vst-Est Level IV 17:09:34 C [facility] Sherman MD [facility] CPT-52523 Level 3 Est. Patient 17:27:08 CDT León hernandez APRN [facility] CPT-25213 [id number] Vst-Est Level IV 14:00:[address] Tesfaye Sherman MD [facility] CPT-45811 [id number] Vst-Est Level IV 19:27:[address] Tesfaye Sherman MD [facility] CPT-98334 [id number] Vst-Est Level IV 10:41:41 C [facility] Sherman MD [facility] CPT-30467 [id number] Vst-Est Level III 09:40:56 CDT Tesfaye Sherman MD [facility] CPT-26235 Level 4 Est. Patient 22:18:12 CDT Tesfaye pearson MD [facility] CPT-84761 Level 4 Est. Patient 14:44:33 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 Tesfaye pearson MD [facility] CPT-21211 Level 4 Est. Patient 13:55:29 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 Tesfaye pearson MD [facility] CPT-93618 Level 4 Est. Patient 17:07:34 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 Tesfaye pearson MD [facility] CPT-40751 Level 4 Est. Patient 13:56:54 CDT Tesfaye pearson MD [facility] [id number] Level 4 Est. Patient 13:24:25 CDT Chelsea sanz APRN [facility] CPT-34445 Level 4 Est. Patient 09:14:56 CDT Tesfaye pearson MD [facility] [place]-09476 Level 4 Est. Patient 18:40:25 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 Tesfaye pearson MD [facility] [place]-[id number] Level 4 Est. Patient 18:13:07 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 Tesfaye pearson MD [facility] [id number] Level 3 Est. Patient 10:46:32 CDT Rj cotto DO [facility] CPT-10017 Level 4 Est. Patient 20:19:25 CDT Tesfaye pearson MD [facility] [place]-[id number] Level 3 Est. Patient 09:07:31 CDT Tesfaye pearson MD [facility] [id number] Level 4 Est. Patient 13:12:56 CDT Tesfaye pearson MD [facility] [place]-60233 Level 4 Est. Patient 21:24:55 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 Tesfaye pearson MD [facility] [place]-61981 Level 3 Est. Patient 13:45:04 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 Tesfaye pearson MD [facility] CPT-48152 Level 4 Est. Patient 13:50:45 CDT Tesfaye pearson MD [facility] CPT-27073 Level 3 Est. Patient 10:16:10 CDT Tesfaye pearson MD [facility] CPT-50803 Level 3 Est. Patient 16:36:07 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 Kayla jameson MD [facility] [place]-[id number] Level 4 Est. Patient 16:00:14 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 Tesfaye pearson MD [facility] CPT-14013 Level 4 Est. Patient 11:02:24 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 Tesfaye pearson MD [facility] CPT-95774 Level 3 Est. Patient 20:21:43 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 Kayla jameson MD [facility] CPT-97427 Level 3 Est. Patient 13:27:28 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 Kayla jameson MD [facility] CPT-59689 Level 4 Est. Patient 15:57:17 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 Tesfaye pearson MD [facility] CPT-50884 Level 3 New Patient 13:25:47 CDT Tesfaye kidd MD [facility] CPT-48937 Level 3 New Patient 17:22:21 CDT J John angel [facility] Procedures Code Procedure Name Date Entry Date Standard Desc ription [id number] (4274F 2P) Patient Reason Influenza immu nization not administered 13:25:19 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 CPT-86246 Bone Density - XRAY USE ONLY 15:21:33 CDT 2 CPT-51955 Venipuncture Draw Fee 16:12:22 CDT CPT-G0439 Subsequent Annual Wellness Exam 18:06:36 CDT CPT-G0439 Subsequent Annual Wellness Exam 22:18:11 CDT CPT-08045 Bone Density - XRAY USE ONLY 11:43:58 CDT CPT-94223 Bone Density - XRAY USE ONLY 10:05:16 CDT 2 CPT-33755 Prv Med New Pt 40-64 yrs 18:19:25 CDT 2016 CPT-78324 Foot, right, comp min 3V - XRAY USE ONLY 10:38:34 CDT CPT-G0439 Subsequent Annual Wellness Exam 13:55:04 CDT CPT-G0438 Initial Annual Wellness Exam 11:23:17 CD T CPT-J2930 Solu Medrol 125 mg (Methyl Prednisolone Sodium Succinate) 17:29:12 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 CPT-60550 Abx/Therapy Injection 17:29:11 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 CPT-J2930 Solu Medrol 125 mg (Methyl Prednisolone Sodium Succinate) 12:34:38 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 CPT-J3420 Vitamin B12 1000mcg (Cyanocobalamin) 09:12:55 CDT CPT-J3420 Vitamin B12 1000mcg (Cyanocobalamin) 16:28:06 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 CPT-50839 Venipuncture Draw Fee 08:39:53 CDT CPT-J3420 Vitamin B12 1000mcg (Cyanocobalamin) 08:46:22 CDT CPT-04149 Abx/Therapy Injection 08:46:22 CDT CPT-J3420 Vitamin B12 1000mcg (Cyanocobalamin) 08:41:26 CDT CPT-27787 Abx/Therapy Injection 08:41:26 CDT CPT-J3420 Vitamin B12 1000mcg (Cyanocobalamin) 08:57:15 CDT CPT-92566 Abx/Therapy Injection 08:57:15 CDT CPT-J3420 Vitamin B12 1000mcg (Cyanocobalamin) 10:59:03 CDT CPT-49296 Abx/Therapy Injection 10:59:03 CDT CPT-J3420 Vitamin B12 1000mcg (Cyanocobalamin) 15:05:39 CDT CPT-87297 Abx/Therapy Injection 15:05:39 CDT CPT-J3420 Vitamin B12 1000mcg (Cyanocobalamin) 13:50:45 CDT CPT-J3420 Vitamin B12 1000mcg (Cyanocobalamin) 08:48:55 CDT CPT-22783 Abx/Therapy Injection 08:48:55 CDT CPT-J3420 Vitamin B12 1000mcg (Cyanocobalamin) 09:14:54 CDT CPT-42943 Abx/Therapy Injection 09:14:54 CDT CPT-J3420 Vitamin B12 1000mcg (Cyanocobalamin) 09:06:06 CDT CPT-32371 Abx/Therapy Injection 09:06:06 CDT CPT-J3420 Vitamin B12 1000mcg (Cyanocobalamin) 09:49:14 CDT CPT-33781 Abx/Therapy Injection 09:49:14 CDT CPT-J3420 Vitamin B12 1000mcg (Cyanocobalamin) 09:10:30 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 CPT-43674 Abx/Therapy Injection 09:10:30 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 CPT-J3420 Vitamin B12 1000mcg (Cyanocobalamin) 09:11:07 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 CPT-32157 Abx/Therapy Injection 09:11:07 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 CPT-J3420 Vitamin B12 1000mcg (Cyanocobalamin) 09:57:03 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 CPT-08014 Abx/Therapy Injection 09:57:03 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 CPT-J3420 Vitamin B12 1000mcg (Cyanocobalamin) 09:23:21 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 CPT-19352 Abx/Therapy Injection 09:23:21 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 CPT-20079 Urine Dip (Floor Use Only) 20:21:44 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 201 02/12/11 CPT-06172 UA Dip Auto (Floor Use Only) 10:04:39 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 2 CPT-72063 Urine Dip (Floor Use Only) 13:27:28 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 201 02/12/01 CPT-37807 Bladder Scan 13:27:28 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 CPT-56056 Abd single AP View 14:30:51 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 CPT-OV Office Visit 10:15:43 CDT CPT-29894 Urine Dip (Floor Use Only) 17:22:21 CDT 201 02/09/02 CPT-83875 Bladder Scan 17:22:21 CDT
--- OUTSIDE RECORDS SUMMARY | 2020-05-05 11:03 | XMS REPORT | Clinical Summary ---
Author Author Talon, Jeri Wood Organization [employer] Address Unknown Phone Unavailable Allergies, Adverse Reactions, [...] Sherman MD Routine general medical examination at [facility] acility Sinusitis 461.9 Resolved Tesfaye Sherman [...] MD Routine general medical examination at a [facility] acility Body Mass Index 21.0-21.9 Adult Refinement [...] Mass Index between 19-24, adult BMI 24-24.9 Active Tesfaye Sherman MD Body Mass Index [...] Tesfaye Sherman MD Dysuria High risk meds shelter use V58.6 Active Tesfaye Sherman MD Long-term (current) drug use Yeast infection 112.9 Inactive Tesfaye Sherman MD Candidiasis of unspecified site Upper respiratory infection 465.9 Inactive Tesfaye Sherman MD Acute upper respiratory infections of un specified site Lower extremity edema, bilateral 782.3 Active 201 07/07/09 León Kodi COMPUTER TESTER Edema Peripheral neuropathy 356.9 Active Tesfaye lamb MD Unspecified hereditary and idiopathic peripheral neuropathy Restless leg syndrome 333.94 Active Tesfaye lamb MD Restless legs syndrome (RLS) Depression ICD-V17.0 Inactive Tesfaye Sherman MD FH [...] Body Mass Index 20.0-20.9 Adult Eldon Shah Fer Dysuria ICD-788.1 Inactive Tesfaye Sherman MD 201 07/05/07 Yeast infection ICD-112.9 Inactive Tesfaye lamb MD Upper respiratory infection ICD-465.9 Inactive Tesfaye Sherman MD Medication List Medication Instructions Start Date Stop Date Generic Name NDC Status Provider Patient Instruction DIFLUCAN 100 MG ORAL TABLET 1 tablet by mouth daily 20 23/12/05 FLUCONAZOLE [id number] Active Tesfaye Sherman MD Active [facility] NIACIN FLUSH FREE 400-100 MG ORAL CAPSULE 1 daily NIACIN-INOSITOL 50064048248 No Longer Active Tesfaye Sherman MD A ctive FISH OIL 1000 MG ORAL CAPSULE DELAYED RELEASE 1 pill b y mouth daily for cholesterol OMEGA-3 FATTY ACIDS 17400695385 No Longe r Active Tesfaye Sherman MD Active UNISOM SLEEPMELTS 25 MG ORAL TABLET DISINTEGRATING 1.5 po q hs DIPHENHYDRAMINE HCL (SLEEP) 91637317012 No Longer Active Venkata Sherman MD Active PREDNISONE 20 MG ORAL TABLET 1 tab twice daily for 3 d ay, then one daily for three days PREDNISONE 86034558690 No Longer Active Tesfaye Sherman MD Active BACLOFEN 10 MG ORAL TABLET Take one tablet by mouth three times a day BACLOFEN 29031633271 No Longer Active Tesfaye Sherman MD Active LIDOCAINE 4 % EXTERNAL CREAM Apply to back prn pain LIDOCAINE 29671803610 Active Tesfaye Sherman MD Active TIZANIDINE HCL 2 MG ORAL TABLET 2 Mg in the AM and 6mg q hs 07/05 TIZANIDINE HCL 72568722089 Active Tesfaye Sherman MD Active HYDROXYZINE HCL 25 MG TABS TAKE 1 TABLET BY MOUTH AT B EDTIME NEEDED FOR SLEEP HYDROXYZINE HCL 24536507669 Active Lisa Hughes, RM A Active FLUCONAZOLE 100 MG ORAL TABLET 1 by mouth daily for yeast infect ion FLUCONAZOLE 31986849667 No Longer Active Laurence Dominguez Acti ve ZITHROMAX 250 MG ORAL TABLET 2 po today, then 1 po q days 2-5 20 21/08/28 AZITHROMYCIN 38108293958 No Longer Active Tesfaye Sherman MD Active DIFLUCAN 100 MG ORAL TABLET 1 tablet by mouth daily 20 21/08/28 FLUCONAZOLE 12483720346 No Longer Active Tesfaye Sherman MD Acti ve HYDROXYZINE HCL 25 MG ORAL TABLET 1 tab po at HS prn sleep 08/02 HYDROXYZINE HCL 17226028808 No Longer Active Tesfaye Sherman MD Active MIRAPEX 0.5 MG ORAL TABLET 1 tablet at night for restless leg. 2018 PRAMIPEXOLE DIHYDROCHLORIDE 92407692828 Active Laurence Raida Active MIRAPEX 0.25 MG ORAL TABLET 1 tablet by mouth at night for r estless leg PRAMIPEXOLE DIHYDROCHLORIDE 58906566940 No Longer Act trent Laurence Raida Active MIRAPEX 0.125 MG ORAL TABLET 1 po nightly PRAMIPEXOLE DIHYDROCHLORIDE 27084173004 No Longer Active Laurence Raida Active ROPINIROLE HCL 2 MG ORAL TABLET 1 po at hs ROPI NIROLE HCL 31534625947 No Longer Active Laurence Raida Active ROPINIROLE HCL 1 MG ORAL TABLET 1 tab po q hs ROPINIROLE HCL 48425964023 No Longer Active Laurence Raida Active ROPINIROLE HCL 0.5 MG ORAL TABLET 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 ROPINIROLE HCL 27769632944 No Longer Active MARCUS Panchal Active ROPINIROLE HCL 0.25 MG ORAL TABLET 1 TAB PO Q HS 05/31 ROPINIROLE HCL 58902883700 No Longer Active Tesfaye Sherman MD Ac tive PREDNISONE 20 MG ORAL TABLET 1 tab twice daily for 3 d ay, then one daily for three days PREDNISONE 77081582373 No Longer Active Tesfaye Sherman MD Active AMITRIPTYLINE HCL 50 MG ORAL TABLET 1 po q hs for sleep AMITRIPTYLINE HCL 68726598671 No Longer Active Tesfaye Sherman MD Active AMITRIPTYLINE HCL 10 MG ORAL TABLET 1 tablet nightly by mout h for neuropathy AMITRIPTYLINE HCL 02208975064 No Longer Active MARCUS Stapleton Active DIFLUCAN 100 MG ORAL TABLET 1 tablet by mouth daily 20 21/03/11 FLUCONAZOLE 80851122970 No Longer Active Tesfaye Sherman MD Acti ve BACTRIM DS 800-160 MG ORAL TABLET 1 tab by mouth twice daily 201 07/08/06 TRIMETHOPRIM-SULFAMETHOXAZOLE 26176085616 No Longer Active Umer Sherman MD Active CLARITIN 10 MG ORAL TABLET Take one by mouth daily LORATADINE 19763521960 Active Tesfaye Sherman MD Active SUDAFED 12 HOUR 120 MG ORAL TABLET EXTENDED RELEASE 12 HOUR 1 pill twice daily if needed for congestion PSEUDOEPHEDRINE HCL 042722282 13 No Longer Active Tesfaye Sherman MD Active FENOFIBRATE 145 MG ORAL TABLET 1 by mouth daily FENOFIBRATE 25111403729 Active Laurence Dominguez Active GABAPENTIN 300 MG ORAL CAPSULE 1 po daily GABAP ENTIN 75504406721 No Longer Active Tesfaye Sherman MD Active HYDROCHLOROTHIAZIDE 12.5 MG ORAL CAPSULE 1 pill by mough daily 2 HYDROCHLOROTHIAZIDE 36288270495 No Longer Active León Mariee APRN Active VENLAFAXINE HCL 75 MG ORAL TABLET 1 am 1/2 at noon 201 07/07/09 VENLAFAXINE HCL 89420267723 No Longer Active León Mariee APRN Act trent DIFLUCAN 100 MG ORAL TABLET 1 tablet by mouth daily 20 19/02/09 FLUCONAZOLE 91850323508 No Longer Active León Mariee APRN Active DIFLUCAN 100 MG ORAL TABLET 1 tablet by mouth daily 20 19/02/09 FLUCONAZOLE 72663137649 No Longer Active León Mariee APRN Active OXYCODONE-ACETAMINOPHEN 5-325 MG ORAL TABLET Take one tablet by mouth every 6 hours 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 Use sparingly OXYCODONE-ACETAMINOPHEN 16428586116 Active Tesfaye villar MD Active CLONAZEPAM 0.5 MG ORAL TABLET Take 1/2 qam, and 1/2 qpm CLONAZEPAM 51718803206 Active Tesfaye Sherman MD Active PRELIEF 340 (65-50) MG (CA-P) ORAL TABLET CALCIUM GLYCEROPHOSPHATE 36766812866 No Longer Active Tesfaye Sherman MD Active SUDAFED 24 HOUR 240 MG ORAL TABLET EXTENDED RELEASE 24 HOUR 1 tab po daily PSEUDOEPHEDRINE HCL 78664147526 No Longer Active Raul Sherman MD Active RED YEAST RICE 600 MG ORAL CAPSULE 1 pill by mouth daily RED YEAST RICE EXTRACT 26441641098 No Longer Active Tesfaye Sherman MD Active REPHRESH PRO-B ORAL CAPSULE 1 tablet daily LACT OBACILLUS 24490501773 No Longer Active Tesfaye Sherman MD Active ABILIFY 2 MG ORAL TABLET 1 by mouth daily. MARIA ELENA PIPRAZOLE 99650666692 Active Tesfaye Sherman MD Active CYMBALTA 60 MG ORAL CAPSULE DELAYED RELEASE PARTICLES 1 cap by mouth daily for pain DULOXETINE HCL 14049117028 Active MARCUS Lindsay Active DIFLUCAN 100 MG ORAL TABLET 1 tablet by mouth daily 20/06/06 FLUCONAZOLE 03152226431 No Longer Active Tesfaye Sherman MD Acti ve PREDNISONE 20 MG ORAL TABLET 1 tablet by mouth twice d aily for 3 days, then 1 tablet daily for 3 days PREDNISONE 93360488375 No L onger Active Tesfaye Sherman MD Active BACTRIM DS 800-160 MG ORAL TABLET 1 tab by mouth twice daily 201 06/09/02 TRIMETHOPRIM-SULFAMETHOXAZOLE 83709773356 No Longer Active Fer Dominguez Active DIFLUCAN 100 MG ORAL TABLET 1 tablet by mouth daily 20 20/05/01 FLUCONAZOLE 87551138042 No Longer Active Tesfaye Sherman MD Acti ve ZITHROMAX 250 MG ORAL TABLET 2 po today, then 1 po q days 2-5 20 20/04/28 AZITHROMYCIN 84978177683 No Longer Active Tesfaye Sherman MD Active MECLIZINE HCL 25 MG ORAL TABLET one tab po qday prn dizziness 20 17/09/06 MECLIZINE HCL 09013620399 No Longer Active Tesfaye Sherman MD Active PROAIR HFA 108 (90 BASE) MCG/ACT INHALATION AEROSOL SO LUTION 1 puff every 6 hours as needed ALBUTEROL SULFATE 81541703635 No Long er Active Tesfaye Sherman MD Active PREDNISONE 20 MG ORAL TABLET 1 tab twice daily for 3 d ay, then one daily for three days PREDNISONE 15846132050 No Longer Active Tesfaye Sherman MD Active MECLIZINE HCL 25 MG ORAL TABLET one 4 times a day as needed for dizziness MECLIZINE HCL 72565679220 Active Tesfaye Sherman MD Active AMOXICILLIN 500 MG ORAL CAPSULE 1 cap by mouth three times a day AMOXICILLIN 63379300995 No Longer Active Laurence Dominguez Acti ve DIFLUCAN 100 MG ORAL TABLET 1 tablet by mouth daily 20 19/08/26 FLUCONAZOLE 38656701003 No Longer Active Tesfaye Sherman MD Acti ve BACTRIM DS 800-160 MG ORAL TABLET 1 tab by mouth twice daily 201 05/10/28 TRIMETHOPRIM-SULFAMETHOXAZOLE 38735262134 No Longer Active Fer Dominguez Active FOSAMAX 70 MG ORAL TABLET 1 po qweek. Take 30min prio r to first food/drink. Avoid lying down x 1 hour. ALENDRONATE SODIUM 74588426 144 No Longer Active Laurence Dominguez Active CYMBALTA 60 MG ORAL CAPSULE DELAYED RELEASE PARTICLES Take 1 tablet by mouth daily DULOXETINE HCL 16743532432 No Longer Active Edith Burch MD Active CYMBALTA 30 MG ORAL CAPSULE DELAYED RELEASE PARTICLES 1 cap by mouth daily with 60mg DULOXETINE HCL 91772993419 No Longer Active Jordan Burch MD Active DIFLUCAN 100 MG ORAL TABLET 1 tablet by mouth daily 19/03/05 FLUCONAZOLE 28953899580 No Longer Active Tesfaye Sherman MD Acti ve BACTRIM DS 800-160 MG ORAL TABLET 1 tab by mouth twice daily 201 05/06/28 TRIMETHOPRIM-SULFAMETHOXAZOLE 53146693410 No Longer Active Umer Sherman MD Active BACTRIM DS 800-160 MG ORAL TABLET 1 tab by mouth twice daily 201 05/04/15 TRIMETHOPRIM-SULFAMETHOXAZOLE 22145950889 No Longer Active Umer Sherman MD Active DIFLUCAN 150 MG ORAL TABLET 1 tablet by mouth daily 20 18/09/20 FLUCONAZOLE 25748292637 No Longer Active Tesfaye Sherman MD Acti ve BACTRIM DS 800-160 MG ORAL TABLET 1 tab by mouth twice daily 201 04/13/17 TRIMETHOPRIM-SULFAMETHOXAZOLE 97185522599 No Longer Active Umer Sherman MD Active CEFTIN 250 MG ORAL TABLET 1 tablet twice daily x 7 days CEFUROXIME AXETIL 96984585492 No Longer Active Tesfaye Sherman MD Active DIFLUCAN 100 MG ORAL TABLET 1 tablet by mouth every other da y for 2 doses FLUCONAZOLE 57264613236 No Longer Active Tesfaye barron MD Active DIFLUCAN 100 MG ORAL TABLET 1 tablet by mouth daily X 3 DAYS 201 04/09/01 FLUCONAZOLE 34768980187 No Longer Active Rj Ravi MIRTAZAPINE 15 MG ORAL TABLET 1/2 tab by mouth at bedtime. 03/13 MIRTAZAPINE 13431467837 No Longer Active Tesfaye Sherman MD Active BACTRIM DS 800-160 MG ORAL TABLET 1 tab by mouth twice daily 201 04/09/01 TRIMETHOPRIM-SULFAMETHOXAZOLE 88423306336 No Longer Active Umer Sherman MD Active PRAMIPEXOLE DIHYDROCHLORIDE 0.125 MG ORAL TABLET take 1 tablet po qhs for restless leg syndrome. PRAMIPEXOLE DIHYDROCHLORI DE 37799843801 No Longer Active Tesfaye Sherman MD Active MAGNESIUM 400 MG ORAL TABLET 1 tab po daily MAGNE SIUM 78216759011 Active Chelsea Theresa COMPUTER TESTER Active CETIRIZINE HCL 5 MG ORAL TABLET Take 1 tablet by mouth daily CETIRIZINE HCL 73680937095 No Longer Active Chelsea Cardenas COMPUTER TESTER Activ e TRIMETHOPRIM 100 MG ORAL TABLET 1/2 qd TRIM ETHOPRIM 43430407065 No Longer Active Chelsea Cardenas APRN Active BACTRIM DS 800-160 MG ORAL TABLET 1 tab by mouth twice daily 201 04/04/11 TRIMETHOPRIM-SULFAMETHOXAZOLE 49240653859 No Longer Active Umer Sherman MD Active BACTRIM DS 800-160 MG ORAL TABLET 1 tab by mouth twice daily X 10 DAYS TRIMETHOPRIM-SULFAMETHOXAZOLE 28519733391 No Longer Active Tesfaye Sherman MD Active AMOXICILLIN 500 MG ORAL CAPSULE 1 cap by mouth three times a day AMOXICILLIN 68974850890 No Longer Active MARCUS Maravilla A ctive B-12 1000 MCG ORAL LOZENGE 1 tab po daily CYANO COBALAMIN 72606529199 Active Tesfaye Sherman MD Active VITAMIN D3 2000 UNIT ORAL TABLET 1 daily, for vitamin D deficien cy CHOLECALCIFEROL 81811780867 No Longer Active Tesfaye Sherman MD Active ZITHROMAX 250 MG ORAL TABLET 2 po today, then 1 po q days 2-5 20 15/02/10 AZITHROMYCIN 34456472673 No Longer Active Tesfaye Sherman MD Active BACTRIM DS 800-160 MG ORAL TABLET 1 tab by mouth twice daily 201 5/01/23 TRIMETHOPRIM-SULFAMETHOXAZOLE 59826645431 No Longer Active Umer Sherman MD Active DIFLUCAN 150 MG ORAL TABLET 1 qd FLUCONAZOL E 26679766393 No Longer Active Kayla Cooper MD Active FLUTICASONE PROPIONATE 50 MCG/ACT NASAL SUSPENSION 1 spray each nostril twice daily FLUTICASONE PROPIONATE 69013002307 Active Umer Sherman MD Active LOVASTATIN 20 MG ORAL TABLET Take 1 tablet by mouth daily LOVASTATIN 24059804703 No Longer Active Tesfaye Sherman MD Acti ve MELOXICAM 7.5 MG ORAL TABLET 1 tablet by mouth daily 2 MELOXICAM 77378601263 No Longer Active Tesfaye Sherman MD Acti ve GABAPENTIN 300 MG ORAL CAPSULE Take two tablets by mouth every e vening GABAPENTIN 02217259410 No Longer Active Edith Burch MD A ctive AMITRIPTYLINE HCL 10 MG ORAL TABLET 1 tablet nightly by mout h for neuropathy AMITRIPTYLINE HCL 10 MG ORAL TABLET 132663 AMITRIPTYLINE HCL Inactive AMITRIPTYLINE HCL 50 MG ORAL TABLET 1 po q hs for sleep AMITRIPTYLINE HCL 50 MG ORAL TABLET 248563 AMITRIPTYLINE HCL Inac tive AMOXICILLIN 500 MG ORAL CAPSULE 1 cap by mouth three times a day AMOXICILLIN 500 MG ORAL CAPSULE 010482 AMOXICILLIN Inactive AMOXICILLIN 500 MG ORAL CAPSULE 1 cap by mouth three times a day AMOXICILLIN 500 MG ORAL CAPSULE 358573 AMOXICILLIN Inactive BACLOFEN 10 MG ORAL TABLET Take one tablet by mouth three times a day BACLOFEN 10 MG ORAL TABLET 102398 BACLOFEN Inact trent BACTRIM DS 800-160 MG ORAL TABLET 1 tab by mouth twice daily 201 03/03/23 BACTRIM DS 800-160 MG ORAL TABLET 704848 TRIMETHOPRIM-SULFAMETHOXAZOLE Inactive BACTRIM DS 800-160 MG ORAL TABLET 1 tab by mouth twice daily 201 04/04/11 BACTRIM DS 800-160 MG ORAL TABLET 421079 TRIMETHOPRIM-SULFAMETHOXAZOLE Inactive BACTRIM DS 800-160 MG ORAL TABLET 1 tab by mouth twice daily 201 04/09/01 BACTRIM DS 800-160 MG ORAL TABLET 977898 TRIMETHOPRIM-SULFAMETHOXAZOLE Inactive BACTRIM DS 800-160 MG ORAL TABLET 1 tab by mouth twice daily 201 04/13/17 BACTRIM DS 800-160 MG ORAL TABLET 206843 TRIMETHOPRIM-SULFAMETHOXAZOLE Inactive BACTRIM DS 800-160 MG ORAL TABLET 1 tab by mouth twice daily 201 06/09/02 BACTRIM DS 800-160 MG ORAL TABLET 555309 TRIMETHOPRIM-SULFAMETHOXAZOLE Inactive BACTRIM DS 800-160 MG ORAL TABLET 1 tab by mouth twice daily 201 05/04/15 BACTRIM DS 800-160 MG ORAL TABLET 699656 TRIMETHOPRIM-SULFAMETHOXAZOLE Inactive BACTRIM DS 800-160 MG ORAL TABLET 1 tab by mouth twice daily 201 05/06/28 BACTRIM DS 800-160 MG ORAL TABLET 147983 TRIMETHOPRIM-SULFAMETHOXAZOLE Inactive BACTRIM DS 800-160 MG ORAL TABLET 1 tab by mouth twice daily 201 05/10/28 BACTRIM DS 800-160 MG ORAL TABLET 842100 TRIMETHOPRIM-SULFAMETHOXAZOLE Inactive BACTRIM DS 800-160 MG ORAL TABLET 1 tab by mouth twice daily 201 07/08/06 BACTRIM DS 800-160 MG ORAL TABLET 236951 TRIMETHOPRIM-SULFAMETHOXAZOLE Inactive BACTRIM DS 800-160 MG ORAL TABLET 1 tab by mouth twice daily X 10 DAYS BACTRIM DS 800-160 MG ORAL TABLET 19830105 TRIMETHOPRIM-SULFAMETHOXAZOLE Inactive CEFTIN 250 MG ORAL TABLET 1 tablet twice daily x 7 days CEFTIN 250 MG ORAL TABLET CEFUROXIME AXETIL Inactive DIFLUCAN 100 MG ORAL TABLET 1 tablet by mouth daily X 3 DAYS 201 04/09/01 DIFLUCAN 100 MG ORAL TABLET 19760711 FLUCONAZOLE Inac tive DIFLUCAN 100 MG ORAL TABLET 1 tablet by mouth every other da y for 2 doses DIFLUCAN 100 MG ORAL TABLET 19760711 FLUCONAZOLE Inactive DIFLUCAN 100 MG ORAL TABLET 1 tablet by mouth daily 20 19/08/26 DIFLUCAN 100 MG ORAL TABLET 19760711 FLUCONAZOLE Inactive DIFLUCAN 100 MG ORAL TABLET 1 tablet by mouth daily 20 19/02/09 DIFLUCAN 100 MG ORAL TABLET 19760711 FLUCONAZOLE Inactive DIFLUCAN 100 MG ORAL TABLET 1 tablet by mouth daily 20 19/02/09 DIFLUCAN 100 MG ORAL TABLET 19760711 FLUCONAZOLE Inactive DIFLUCAN 100 MG ORAL TABLET 1 tablet by mouth daily 20 20/06/06 DIFLUCAN 100 MG ORAL TABLET 19760711 FLUCONAZOLE Inactive DIFLUCAN 100 MG ORAL TABLET 1 tablet by mouth daily 20 21/03/11 DIFLUCAN 100 MG ORAL TABLET 19760711 [...] 20 21/08/28 DIFLUCAN 100 MG ORAL TABLET 19760711 FLUCONAZOLE Inactive HYDROXYZINE HCL 25 MG ORAL TABLET 1 tab po at HS prn sleep 08/02 HYDROXYZINE HCL 25 MG ORAL TABLET 549282 HYDROXYZINE HC L Inactive PREDNISONE 20 MG ORAL TABLET 1 tab twice daily for 3 d ay, then one daily for three days PREDNISONE 20 MG ORAL TABLET 040326 PREDNIS ONE Inactive PREDNISONE 20 MG ORAL TABLET 1 tablet by mouth twice d aily for 3 days, then 1 tablet daily for 3 days PREDNISONE 20 MG ORAL TA BLET 459215 PREDNISONE Inactive PREDNISONE 20 MG ORAL TABLET 1 tab twice daily for 3 d ay, then one daily for three days PREDNISONE 20 MG ORAL TABLET 130913 PREDNIS ONE Inactive PREDNISONE 20 MG ORAL TABLET 1 tab twice daily for 3 d ay, then one daily for three days PREDNISONE 20 MG ORAL TABLET 613637 PREDNIS ONE Inactive TRIMETHOPRIM 100 MG ORAL TABLET 1/2 qd 7 TRIMETHOPRIM 100 MG ORAL TABLET 085734 TRIMETHOPRIM Inactive FLUCONAZOLE 100 MG ORAL TABLET 1 by mouth daily for yeast infect ion FLUCONAZOLE 100 MG ORAL TABLET 445078 FLUCONAZOLE I nactive LOVASTATIN 20 MG ORAL TABLET Take 1 tablet by mouth daily LOVASTATIN 20 MG ORAL TABLET 801565 LOVASTATIN Inactive MECLIZINE HCL 25 MG ORAL TABLET one tab po qday prn dizziness 20 17/09/06 MECLIZINE HCL 25 MG ORAL TABLET 186190 MECLIZINE HCL Inactive VENLAFAXINE HCL 75 MG ORAL TABLET 1 am 1/2 at noon 201 07/07/09 VENLAFAXINE HCL 75 MG ORAL TABLET 835173 VENLAFAXINE HCL Inacti ve DIFLUCAN 150 MG ORAL TABLET 1 qd DIFLUCAN 150 MG ORAL TABLET 917872 FLUCONAZOLE Inactive DIFLUCAN 150 MG ORAL TABLET 1 tablet by mouth daily 20 18/09/20 DIFLUCAN 150 MG ORAL TABLET 391554 FLUCONAZOLE Inactive CETIRIZINE HCL 5 MG ORAL TABLET Take 1 tablet by mouth daily CETIRIZINE HCL 5 MG ORAL TABLET 0040331 CETIRIZINE HCL Inactive MIRTAZAPINE 15 MG ORAL TABLET 1/2 tab by mouth at bedtime. 03/13 MIRTAZAPINE 15 MG ORAL TABLET 080957 MIRTAZAPINE In active GABAPENTIN 300 MG ORAL CAPSULE Take two tablets by mouth every e vening GABAPENTIN 300 MG ORAL CAPSULE 789510 GABAPENTIN I nactive GABAPENTIN 300 MG ORAL CAPSULE 1 po daily GABAPENTIN 300 MG ORAL CAPSULE 018120 GABAPENTIN Inactive HYDROCHLOROTHIAZIDE 12.5 MG ORAL CAPSULE 1 pill by mough daily 2 HYDROCHLOROTHIAZIDE 12.5 MG ORAL CAPSULE 257207 HYDROCH LOROTHIAZIDE Inactive MELOXICAM 7.5 MG ORAL TABLET 1 tablet by mouth daily 2 MELOXICAM 7.5 MG ORAL TABLET 350712 MELOXICAM Inactive ZITHROMAX 250 MG ORAL TABLET 2 po today, then 1 po q days 2-5 20 20/04/28 ZITHROMAX 250 MG ORAL TABLET 328836 AZITHROMYCIN Delight ctive ZITHROMAX 250 MG ORAL TABLET 2 po today, then 1 po q days 2-5 20 21/08/28 ZITHROMAX 250 MG ORAL TABLET 299919 AZITHROMYCIN Delight ctive ZITHROMAX 250 MG ORAL TABLET 2 po today, then 1 po q days 2-5 20 15/02/10 ZITHROMAX 250 MG ORAL TABLET 784939 AZITHROMYCIN Delight ctive PRAMIPEXOLE DIHYDROCHLORIDE 0.125 MG ORAL TABLET take 1 tablet po qhs for restless leg syndrome. PRAMIPEXOLE DIHYD ROCHLORIDE 0.125 MG ORAL TABLET 848282 PRAMIPEXOLE DIHYDROCHLORIDE Inactive MIRAPEX 0.125 MG ORAL TABLET 1 po nightly MIRAPEX 0.125 MG ORAL TABLET 749723 PRAMIPEXOLE DIHYDROCHLORIDE Inactive MIRAPEX 0.25 MG ORAL TABLET 1 tablet by mouth at night for r estless leg MIRAPEX 0.25 MG ORAL TABLET 193816 PRAM IPEXOLE DIHYDROCHLORIDE Inactive ROPINIROLE HCL 0.25 MG ORAL TABLET 1 TAB PO Q HS 05/31 ROPINIROLE HCL 0.25 MG ORAL TABLET 775071 ROPINIROLE HCL Inact trent ROPINIROLE HCL 1 MG ORAL TABLET 1 tab po q hs ROPINIROLE HCL 1 MG ORAL TABLET 490836 ROPINIROLE HCL Inactive ROPINIROLE HCL 2 MG ORAL TABLET 1 po at hs 7 ROPINIROLE HCL 2 MG ORAL TABLET 913266 ROPINIROLE HCL Inactive ROPINIROLE HCL 0.5 MG ORAL TABLET 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 ROPINIROLE HCL 0.5 MG ORAL TABLET 700388 ROPINIR OLE HCL Inactive SUDAFED 24 HOUR 240 MG ORAL TABLET EXTENDED RELEASE 24 HOUR 1 tab po daily SUDAFED 24 HOUR 240 MG ORAL TABLET EXTENDED RELEASE 24 HOUR PSEUDOEPHEDRINE HCL Inactive FOSAMAX 70 MG ORAL TABLET 1 po qweek. Take 30min prio r to first food/drink. Avoid lying down x 1 hour. FOSAMAX 70 MG ORAL TA BLET 761663 ALENDRONATE SODIUM Inactive PRELIEF 340 (65-50) MG (CA-P) ORAL TABLET PRELIEF 340 (65-50) MG (CA-P) ORAL TABLET CALCIUM GLYCEROPHOSPHATE Inact trent SUDAFED 12 HOUR 120 MG ORAL TABLET EXTENDED RELEASE 12 HOUR 1 pill twice daily if needed for congestion SUDAFED 12 HOUR 120 MG ORAL TABLET EXTENDED RELEASE 12 HOUR PSEUDOEPHEDRINE HCL Inactive CYMBALTA 60 MG ORAL CAPSULE DELAYED RELEASE PARTICLES Take 1 tablet by mouth daily CYMBALTA 60 MG ORAL CAPSULE DELAYED RELEA SE PARTICLES 507173 DULOXETINE HCL Inactive CYMBALTA 30 MG ORAL CAPSULE DELAYED RELEASE PARTICLES 1 cap by mouth daily with 60mg CYMBALTA 30 MG ORAL CAPSULE DELAYED RELEASE PARTICLES 718809 DULOXETINE HCL Inactive PROAIR HFA 108 (90 BASE) MCG/ACT INHALATION AEROSOL SO LUTION 1 puff every 6 hours as needed PROAIR HFA 108 (90 B ASE) MCG/ACT INHALATION AEROSOL SOLUTION ALBUTEROL SULFATE Inactive RED YEAST RICE 600 MG ORAL CAPSULE 1 pill by mouth daily RED YEAST RICE 600 MG ORAL CAPSULE 512384 RED YEAST RICE EXTRACT In active UNISOM SLEEPMELTS 25 MG ORAL TABLET DISINTEGRATING 1.5 po q hs UNISOM SLEEPMELTS 25 MG ORAL TABLET DISINTEGRATING DIPHENHYDRAMINE HCL (SLEEP) Inactive FISH OIL 1000 MG ORAL CAPSULE DELAYED RELEASE 1 pill b y mouth daily for cholesterol FISH OIL 1000 MG ORAL CAPSULE DE LAYED RELEASE OMEGA-3 FATTY ACIDS Inactive VITAMIN D3 2000 UNIT ORAL TABLET 1 daily, for vitamin D deficien cy VITAMIN D3 2000 UNIT ORAL TABLET CHOLECALCIFEROL Inactive REPHRESH PRO-B ORAL CAPSULE 1 tablet daily REPHRESH PRO-B ORAL CAPSULE LACTOBACILLUS Inactive [facility] NIACIN FLUSH FREE 400-100 MG ORAL CAPSULE 1 daily [facility] NIACIN FLUSH FREE 400-100 MG ORAL CAPSULE NIACIN-INOSITOL Inactive Advance Directives Directive Description Start Date PERMISSION TO SHARE DISCUSSED WITH PATIENT -- NO DECISION MADE DISCUSED WITH PATIENT -- FULL CODE LIVING WILL ON FILE DURABLE POWER OF CORE STICKER FOR HEALTHCARE Vital Signs Date Name Value Unit Range Description blood pressure, diastolic, repeated by physician 77 BP lyon blood pressure, diastolic 77 mm[Hg] BP lyon blood pressure, systolic, repeated by physician 129 BP sys blood pressure, systolic 129 mm[Hg] BP sys height E&M 62 [in_us] Bdy height pulse rate E&M 92 /min Heart rate temperature E&M 98.6 [degF] Body temp erature weight E&M 135 [lb_av] Weight Measure d blood pressure, diastolic, repeated by physician 66 BP lyon blood pressure, diastolic 66 mm[Hg] BP lyon blood pressure, systolic, repeated by physician 118 BP sys blood pressure, systolic 118 mm[Hg] BP sys height E&M 62 [in_us] Bdy height pulse rate E&M 93 /min Heart rate temperature E&M 98.4 [degF] Body temp erature weight E&M 129 [lb_av] Weight Measure d blood pressure, diastolic, repeated by physician 64 BP lyon blood pressure, diastolic 64 mm[Hg] BP lyon blood pressure, systolic, repeated by physician 117 BP sys blood pressure, systolic 117 mm[Hg] BP sys height E&M 62 [in_us] Bdy height pulse rate E&M 76 /min Heart rate temperature E&M 98.3 [degF] Body temp erature weight E&M 125.50 [lb_av] Weight Measure d blood pressure, diastolic 73 mm[Hg] BP lyon blood pressure, systolic 113 mm[Hg] BP sys height E&M 62 [in_us] Bdy height pulse rate E&M 93 /min Heart rate temperature E&M 99.4 [degF] Body temp erature weight E&M 125 [lb_av] Weight Measure d blood pressure, diastolic 76 mm[Hg] BP lyon blood pressure, systolic 119 mm[Hg] BP sys height E&M 62 [in_us] Bdy height pulse rate E&M 93 /min Heart rate temperature E&M 98.7 [degF] Body temp erature weight E&M 125 [lb_av] Weight Measure d blood pressure, diastolic 83 mm[Hg] BP lyon blood pressure, systolic 147 mm[Hg] BP sys height E&M 62 [in_us] Bdy height pulse rate E&M 96 /min Heart rate temperature E&M 99.1 [degF] Body temp erature weight E&M 128 [lb_av] Weight Measure d blood pressure, diastolic 74 mm[Hg] BP lyon blood pressure, systolic 127 mm[Hg] BP sys height E&M 62 [in_us] Bdy height pulse rate E&M 91 /min Heart rate temperature E&M 98.1 [degF] Body temp erature weight E&M 124 [lb_av] Weight Measure d Diagnostic Results Date Name Value Unit Range Description Lab Report: Lipid Panel, Comp. Metabolic Panel, Magnesium - Chemistry cholesterol, serum 196 mg/dL 150-784 7063/07/30 triglyceride, serum, fasting 86 mg/dL 30-200 HDL cholesterol, serum 41 mg/dL 32-60 LDL cholesterol, serum 138 mg/dL 0-130 sodium, serum 140 mmol/L 566-151 8173/07/30 carbon dioxide, venous blood 28.6 mmol/L 21.0-32 [...] 5.0-8.5 Encounters Code Encounter Date Provider Facility CPT-50437 [id number] Vst-Est Level IV 13:49:08 [employer] Mendy Stovallord [facility] CPT-56356 [id number] Vst-Est Level IV 11:39:[address] Tesfaye Sherman MD [facility] CPT-92364 [id number] Vst-Est Level IV 14:08:03 C BRIDGET Sherman MD [facility] CPT-86278 Level 3 Est. Patient 18:06:36 CDT Tesfaye pearson MD [facility] CPT-99995 [id number] Vst-Est Level IV 17:09:34 C BRIDGET Sherman MD [facility] CPT-65635 Level 3 Est. Patient 17:27:08 CDT León hernandez APRN [facility] CPT-88734 [id number] Vst-Est Level IV 14:00:[address] Tesfaye Sherman MD [facility] CPT-45658 03240-Eas Vst-Est Level IV 19:27:[address] Tesfaye Sherman MD [facility] CPT-33550 94683-Mum Vst-Est Level IV 10:41:41 C BRIDGET Sherman MD [facility] CPT-04049 29672-Opc Vst-Est Level III 09:40:56 CDT Tesfaye Sherman MD [facility] CPT-35592 Level 4 Est. Patient 22:18:12 CDT Tesfaye pearson MD [facility] CPT-70537 Level 4 Est. Patient 14:44:33 [employer] Tesfaye pearson MD [facility] CPT-71360 Level 4 Est. Patient 13:55:29 [employer] Tesfaye pearson MD [facility] CPT-41041 Level 4 Est. Patient 17:07:34 [employer] Tesfaye pearson MD [facility] CPT-54190 Level 4 Est. Patient 13:56:54 CDT Tesfaye pearson MD [facility]-34837 Level 4 Est. Patient 13:24:25 CDT Chelsea sanz APRN [facility] CPT-61311 Level 4 Est. Patient 09:14:56 CDT Tesfaye pearson MD [facility]-95480 Level 4 Est. Patient 18:40:25 [employer] Tesfaye pearson MD [facility]-90780 Level 4 Est. Patient 18:13:07 [employer] Tesfaye pearson MD [facility]-54234 Level 3 Est. Patient 10:46:32 CDT Rj cotto DO [facility] CPT-79203 Level 4 Est. Patient 20:19:25 CDT Tesfaye pearson MD [facility]-73264 Level 3 Est. Patient 09:07:31 CDT Tesfaye pearson MD [facility]-08052 Level 4 Est. Patient 13:12:56 CDT Tesfaye pearson MD [facility]-43134 Level 4 Est. Patient 21:24:55 [employer] Tesfaye pearson MD [facility]-04557 Level 3 Est. Patient 13:45:04 [employer] Tesfaye pearson MD [facility] CPT-68323 Level 4 Est. Patient 13:50:45 CDT Tesfaye pearson MD [facility] CPT-41004 Level 3 Est. Patient 10:16:10 CDT Tesfaye pearson MD [facility] CPT-09829 Level 3 Est. Patient 16:36:07 [employer] Kayla jameson MD [facility]-34142 Level 4 Est. Patient 16:00:14 [employer] Tesfaye pearson MD [facility] CPT-33209 Level 4 Est. Patient 11:02:24 [employer] Tesfaye pearson MD [facility] CPT-01757 Level 3 Est. Patient 20:21:43 [employer] Kayla jameson MD [facility] CPT-78144 Level 3 Est. Patient 13:27:28 [employer] Kayla jameson MD [facility] CPT-65631 Level 4 Est. Patient 15:57:17 [employer] Tesfaye pearson MD [facility] CPT-18055 Level 3 New Patient 13:25:47 CDT Tesfaye kidd MD [facility] CPT-21903 Level 3 New Patient 17:22:21 CDT J John angel MD [facility] Procedures Code Procedure Name Date Entry Date Standard Desc ription [id number]-DJ9830L (4274F 2P) Patient Reason Influenza immu nization not administered 13:25:19 [employer] CPT-18011 Bone Density - XRAY USE ONLY 15:21:33 CDT 2 CPT-27304 Venipuncture Draw Fee 16:12:22 CDT CPT-G0439 Subsequent Annual Wellness Exam 18:06:36 CDT CPT-G0439 Subsequent Annual Wellness Exam 22:18:11 CDT CPT-68636 Bone Density - XRAY USE ONLY 11:43:58 CDT 2 CPT-53613 Bone Density - XRAY USE ONLY 10:05:16 CDT 2 CPT-75167 Prv Med New Pt 40-64 yrs 18:19:25 CDT 2016 CPT-31803 Foot, right, comp min 3V - XRAY USE ONLY 10:38:34 CDT CPT-G0439 Subsequent Annual Wellness Exam 13:55:04 CDT CPT-G0438 Initial Annual Wellness Exam 11:23:17 CD T CPT-J2930 Solu Medrol 125 mg (Methyl Prednisolone Sodium Succinate) 17:29:12 [employer] CPT-70843 Abx/Therapy Injection 17:29:11 [employer] CPT-J2930 Solu Medrol 125 mg (Methyl Prednisolone Sodium Succinate) 12:34:38 [employer] CPT-J3420 Vitamin B12 1000mcg (Cyanocobalamin) 09:12:55 CDT CPT-J3420 Vitamin B12 1000mcg (Cyanocobalamin) 16:28:06 [employer] CPT-37885 Venipuncture Draw Fee 08:39:53 CDT CPT-J3420 Vitamin B12 1000mcg (Cyanocobalamin) 08:46:22 CDT CPT-21994 Abx/Therapy Injection 08:46:22 CDT CPT-J3420 Vitamin B12 1000mcg (Cyanocobalamin) 08:41:26 CDT CPT-88343 Abx/Therapy Injection 08:41:26 CDT CPT-J3420 Vitamin B12 1000mcg (Cyanocobalamin) 08:57:15 CDT CPT-33225 Abx/Therapy Injection 08:57:15 CDT CPT-J3420 Vitamin B12 1000mcg (Cyanocobalamin) 10:59:03 CDT CPT-03756 Abx/Therapy Injection 10:59:03 CDT CPT-J3420 Vitamin B12 1000mcg (Cyanocobalamin) 15:05:39 CDT CPT-22780 Abx/Therapy Injection 15:05:39 CDT CPT-J3420 Vitamin B12 1000mcg (Cyanocobalamin) 13:50:45 CDT CPT-J3420 Vitamin B12 1000mcg (Cyanocobalamin) 08:48:55 CDT CPT-29092 Abx/Therapy Injection 08:48:55 CDT CPT-J3420 Vitamin B12 1000mcg (Cyanocobalamin) 09:14:54 CDT CPT-78840 Abx/Therapy Injection 09:14:54 CDT CPT-J3420 Vitamin B12 1000mcg (Cyanocobalamin) 09:06:06 CDT CPT-12059 Abx/Therapy Injection 09:06:06 CDT CPT-J3420 Vitamin B12 1000mcg (Cyanocobalamin) 09:49:14 CDT CPT-77461 Abx/Therapy Injection 09:49:14 CDT CPT-J3420 Vitamin B12 1000mcg (Cyanocobalamin) 09:10:30 [employer] CPT-97083 Abx/Therapy Injection 09:10:30 [employer] CPT-J3420 Vitamin B12 1000mcg (Cyanocobalamin) 09:11:07 [employer] CPT-24339 Abx/Therapy Injection 09:11:07 [employer] CPT-J3420 Vitamin B12 1000mcg (Cyanocobalamin) 09:57:03 [employer] CPT-56978 Abx/Therapy Injection 09:57:03 [employer] CPT-J3420 Vitamin B12 1000mcg (Cyanocobalamin) 09:23:21 [employer] CPT-59450 Abx/Therapy Injection 09:23:21 [employer] CPT-53824 Urine Dip (Floor Use Only) 20:21:44 [employer] 201 02/12/11 CPT-01048 UA Dip Auto (Floor Use Only) 10:04:39 [employer] 2 CPT-62294 Urine Dip (Floor Use Only) 13:27:28 [employer] 201 02/12/01 CPT-93270 Bladder Scan 13:27:28 [employer] CPT-70002 Abd single AP View 14:30:51 [employer] CPT-OV Office Visit 10:15:43 CDT CPT-33765 Urine Dip (Floor Use Only) 17:22:21 CDT 201 02/09/02 CPT-75239 Bladder Scan 17:22:21 CDT
--- OUTSIDE RECORDS SUMMARY | 2020-05-05 11:04 | XMS REPORT | Clinical Summary ---
Author Author Talon, Jeri Wood Organization [email or web address] Address Unknown Phone Unavailable Allergies, Adverse Reactions, [...] Other malaise and fatigue Sinusitis 461.9 Active eTsfaye Sherman MD Acute sinusitis, unspecified Interstitial Cystitis 595.1 Active Kayla richmond MD Chronic interstitial cystitis Preventive health care V70.0 Resolved Tesfaye Sherman MD Routine general medical examination at [facility] acility Sinusitis 461.9 Resolved Tesfaye Sherman [...] MD Routine general medical examination at a [facility] acility Body Mass Index 21.0-21.9 Adult [...] Tesfaye Sherman MD Dysuria High risk meds senior living use V58.6 Active Tesfaye Sherman MD Long-term (current) drug use Yeast infection 112.9 Inactive Tesfaye Sherman MD Candidiasis of unspecified site Upper respiratory infection 465.9 Inactive Tesfaye Sherman MD Acute upper respiratory infections of un specified site Lower extremity edema, bilateral 782.3 Active 201 07/07/09 León Kodi [employer]IA PL[employer]NER / BUYER Edema Peripheral neuropathy 356.9 Active Tesfaye lamb [...] tablet by mouth daily 20 23/12/05 FLUCONAZOLE 64830155465 Active Tesfaye Sherman MD Active [facility] NIACIN FLUSH FREE 400-100 MG ORAL CAPSULE 1 daily NIACIN-INOSITOL 66453732577 No Longer Active Tesfaye Sherman MD A ctive FISH OIL 1000 MG ORAL CAPSULE DELAYED RELEASE 1 pill b y mouth daily for cholesterol OMEGA-3 FATTY ACIDS 17740892312 No Longe r Active Tesfaye Sherman MD Active UNISOM SLEEPMELTS 25 MG ORAL TABLET DISINTEGRATING 1.5 po q hs DIPHENHYDRAMINE HCL (SLEEP) 63305476551 No Longer Active Venkata Sherman MD Active PREDNISONE 20 MG ORAL TABLET 1 tab twice daily for 3 d ay, then one daily for three days PREDNISONE 66642931742 No Longer Active Tesfaye Sherman MD Active BACLOFEN 10 MG ORAL TABLET Take one tablet by mouth three times a day BACLOFEN 78070774516 No Longer Active Tesfaye Sherman MD Active LIDOCAINE 4 % EXTERNAL CREAM Apply to back prn pain LIDOCAINE 85448066905 Active Tesfaye Sherman MD Active TIZANIDINE HCL 2 MG ORAL TABLET 2 Mg in the AM and 6mg q hs 07/05 TIZANIDINE HCL 82490810881 Active Tesfaye Sherman MD Active HYDROXYZINE HCL 25 MG TABS TAKE 1 TABLET BY MOUTH AT B EDTIME NEEDED FOR SLEEP HYDROXYZINE HCL 06015698784 Active Lisa Hughes, RM A Active FLUCONAZOLE 100 MG ORAL TABLET 1 by mouth daily for yeast infect ion FLUCONAZOLE 24876718502 No Longer Active Laurence Dominguez Acti ve ZITHROMAX 250 MG ORAL TABLET 2 po today, then 1 po q days 2-5 20 21/08/28 AZITHROMYCIN 36723200711 No Longer Active Tesfaye Sherman MD Active DIFLUCAN 100 MG ORAL TABLET 1 tablet by mouth daily 20 21/08/28 FLUCONAZOLE 63537162174 No Longer Active Tesfaye Sherman MD Acti ve HYDROXYZINE HCL 25 MG ORAL TABLET 1 tab po at HS prn sleep 08/02 HYDROXYZINE HCL 16012451582 No Longer Active Tesfaye Sherman MD Active MIRAPEX 0.5 MG ORAL TABLET 1 tablet at night for restless leg. 2018 PRAMIPEXOLE DIHYDROCHLORIDE 89224107118 Active Laurence Raida Active MIRAPEX 0.25 MG ORAL TABLET 1 tablet by mouth at night for r estless leg PRAMIPEXOLE DIHYDROCHLORIDE 18438603493 No Longer Act trent Laurence Raida Active MIRAPEX 0.125 MG ORAL TABLET 1 po nightly PRAMIPEXOLE DIHYDROCHLORIDE 58213048500 No Longer Active Laurence Raida Active ROPINIROLE HCL 2 MG ORAL TABLET 1 po at hs ROPI NIROLE HCL 81244857118 No Longer Active Laurence Raida Active ROPINIROLE HCL 1 MG ORAL TABLET 1 tab po q hs ROPINIROLE HCL 38541191832 No Longer Active Laurence Raida Active ROPINIROLE HCL 0.5 MG ORAL TABLET 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 ROPINIROLE HCL 94256388846 No Longer Active MARCUS Panchal Active ROPINIROLE HCL 0.25 MG ORAL TABLET 1 TAB PO Q HS 05/31 ROPINIROLE HCL 87548959967 No Longer Active Tesfaye Sherman MD Ac tive PREDNISONE 20 MG ORAL TABLET 1 tab twice daily for 3 d ay, then one daily for three days PREDNISONE 54646559916 No Longer Active Tesfaye Sherman MD Active AMITRIPTYLINE HCL 50 MG ORAL TABLET 1 po q hs for sleep AMITRIPTYLINE HCL 04359008939 No Longer Active Tesfaye Sherman MD Active AMITRIPTYLINE HCL 10 MG ORAL TABLET 1 tablet nightly by mout h for neuropathy AMITRIPTYLINE HCL 50309212630 No Longer Active MARCUS Stapleton Active DIFLUCAN 100 MG ORAL TABLET 1 tablet by mouth daily 20 21/03/11 FLUCONAZOLE 67290038333 No Longer Active Tesfaye Sherman MD Acti ve BACTRIM DS 800-160 MG ORAL TABLET 1 tab by mouth twice daily 201 07/08/06 TRIMETHOPRIM-SULFAMETHOXAZOLE 73072451908 No Longer Active Umer Sherman MD Active CLARITIN 10 MG ORAL TABLET Take one by mouth daily LORATADINE 81352536627 Active Tesfaye Sherman MD Active SUDAFED 12 HOUR 120 MG ORAL TABLET EXTENDED RELEASE 12 HOUR 1 pill twice daily if needed for congestion PSEUDOEPHEDRINE HCL 415629241 13 No Longer Active Tesfaye Sherman MD Active FENOFIBRATE 145 MG ORAL TABLET 1 by mouth daily FENOFIBRATE 82896581153 Active Laurence Dominguez Active GABAPENTIN 300 MG ORAL CAPSULE 1 po daily GABAP ENTIN 98239622514 No Longer Active Tesfaye Sherman MD Active HYDROCHLOROTHIAZIDE 12.5 MG ORAL CAPSULE 1 pill by mough daily 2 HYDROCHLOROTHIAZIDE 04132539916 No Longer Active León Mariee APRN Active VENLAFAXINE HCL 75 MG ORAL TABLET 1 am 1/2 at noon 201 07/07/09 VENLAFAXINE HCL 92441514689 No Longer Active León Mariee APRN Act trent DIFLUCAN 100 MG ORAL TABLET 1 tablet by mouth daily 20 19/02/09 FLUCONAZOLE 42741945361 No Longer Active León Mariee APRN Active DIFLUCAN 100 MG ORAL TABLET 1 tablet by mouth daily 20 19/02/09 FLUCONAZOLE 17304541564 No Longer Active León Mariee APRN Active OXYCODONE-ACETAMINOPHEN 5-325 MG ORAL TABLET Take one tablet by mouth every 6 hours 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 Use sparingly OXYCODONE-ACETAMINOPHEN 85796875925 Active Tesfaye villar MD Active CLONAZEPAM 0.5 MG ORAL TABLET Take 1/2 qam, and 1/2 qpm CLONAZEPAM 50454806221 Active Tesfaye Sherman MD Active PRELIEF 340 (65-50) MG (CA-P) ORAL TABLET CALCIUM GLYCEROPHOSPHATE 04175245357 No Longer Active Tesfaye Sherman MD Active SUDAFED 24 HOUR 240 MG ORAL TABLET EXTENDED RELEASE 24 HOUR 1 tab po daily PSEUDOEPHEDRINE HCL 82547561517 No Longer Active Raul Sherman MD Active RED YEAST RICE 600 MG ORAL CAPSULE 1 pill by mouth daily RED YEAST RICE EXTRACT 24331229627 No Longer Active Tesfaye Sherman MD Active REPHRESH PRO-B ORAL CAPSULE 1 tablet daily LACT OBACILLUS 03859782547 No Longer Active Tesfaye Sherman MD Active ABILIFY 2 MG ORAL TABLET 1 by mouth daily. MARIA ELENA PIPRAZOLE 59814319319 Active Tesfaye Sherman MD Active CYMBALTA 60 MG ORAL CAPSULE DELAYED RELEASE PARTICLES 1 cap by mouth daily for pain DULOXETINE HCL 12791089989 Active MARCUS Lindsay Active DIFLUCAN 100 MG ORAL TABLET 1 tablet by mouth daily 20/06/06 FLUCONAZOLE 26802711575 No Longer Active Tesfaye Sherman MD Acti ve PREDNISONE 20 MG ORAL TABLET 1 tablet by mouth twice d aily for 3 days, then 1 tablet daily for 3 days PREDNISONE 84665674092 No L onger Active Tesfaye Sherman MD Active BACTRIM DS 800-160 MG ORAL TABLET 1 tab by mouth twice daily 201 06/09/02 TRIMETHOPRIM-SULFAMETHOXAZOLE 00608151864 No Longer Active Fer Dominguez Active DIFLUCAN 100 MG ORAL TABLET 1 tablet by mouth daily 20 20/05/01 FLUCONAZOLE 22527583379 No Longer Active Tesfaye Sherman MD Acti ve ZITHROMAX 250 MG ORAL TABLET 2 po today, then 1 po q days 2-5 20 20/04/28 AZITHROMYCIN 93325066991 No Longer Active Tesfaye Sherman MD Active MECLIZINE HCL 25 MG ORAL TABLET one tab po qday prn dizziness 20 17/09/06 MECLIZINE HCL 09192304368 No Longer Active Tesfaye Sherman MD Active PROAIR HFA 108 (90 BASE) MCG/ACT INHALATION AEROSOL SO LUTION 1 puff every 6 hours as needed ALBUTEROL SULFATE 15463065758 No Long er Active Tesfaye Sherman MD Active PREDNISONE 20 MG ORAL TABLET 1 tab twice daily for 3 d ay, then one daily for three days PREDNISONE 49915766546 No Longer Active Tesfaye Sherman MD Active MECLIZINE HCL 25 MG ORAL TABLET one 4 times a day as needed for dizziness MECLIZINE HCL 60918431116 Active Tesfaye Sherman MD Active AMOXICILLIN 500 MG ORAL CAPSULE 1 cap by mouth three times a day AMOXICILLIN 56828894761 No Longer Active Laurence Dominguez Acti ve DIFLUCAN 100 MG ORAL TABLET 1 tablet by mouth daily 20 19/08/26 FLUCONAZOLE 44721295875 No Longer Active Tesfaye Sherman MD Acti ve BACTRIM DS 800-160 MG ORAL TABLET 1 tab by mouth twice daily 201 05/10/28 TRIMETHOPRIM-SULFAMETHOXAZOLE 85960109452 No Longer Active Fer Dominguez Active FOSAMAX 70 MG ORAL TABLET 1 po qweek. Take 30min prio r to first food/drink. Avoid lying down x 1 hour. ALENDRONATE SODIUM 81652461 144 No Longer Active Laurence Dominguez Active CYMBALTA 60 MG ORAL CAPSULE DELAYED RELEASE PARTICLES Take 1 tablet by mouth daily DULOXETINE HCL 98660060914 No Longer Active Edith Burch MD Active CYMBALTA 30 MG ORAL CAPSULE DELAYED RELEASE PARTICLES 1 cap by mouth daily with 60mg DULOXETINE HCL 23351743982 No Longer Active Jordan Burch MD Active DIFLUCAN 100 MG ORAL TABLET 1 tablet by mouth daily 19/03/05 FLUCONAZOLE 71964622255 No Longer Active Tesfaye Sherman MD Acti ve BACTRIM DS 800-160 MG ORAL TABLET 1 tab by mouth twice daily 201 05/06/28 TRIMETHOPRIM-SULFAMETHOXAZOLE 25026164111 No Longer Active Umer Sherman MD Active BACTRIM DS 800-160 MG ORAL TABLET 1 tab by mouth twice daily 201 05/04/15 TRIMETHOPRIM-SULFAMETHOXAZOLE 69806733170 No Longer Active Umer Sherman MD Active DIFLUCAN 150 MG ORAL TABLET 1 tablet by mouth daily 20 18/09/20 FLUCONAZOLE 59560466365 No Longer Active Tesfaye Sherman MD Acti ve BACTRIM DS 800-160 MG ORAL TABLET 1 tab by mouth twice daily 201 04/13/17 TRIMETHOPRIM-SULFAMETHOXAZOLE 05205566877 No Longer Active Umer Sherman MD Active CEFTIN 250 MG ORAL TABLET 1 tablet twice daily x 7 days CEFUROXIME AXETIL 64747031505 No Longer Active Tesfaye Sherman MD Active DIFLUCAN 100 MG ORAL TABLET 1 tablet by mouth every other da y for 2 doses FLUCONAZOLE 46043913859 No Longer Active Tesfaye barron MD Active DIFLUCAN 100 MG ORAL TABLET 1 tablet by mouth daily X 3 DAYS 201 04/09/01 FLUCONAZOLE 99219034168 No Longer Active Rj Ravi MIRTAZAPINE 15 MG ORAL TABLET 1/2 tab by mouth at bedtime. 03/13 MIRTAZAPINE 03162808646 No Longer Active Tesfaye Sherman MD Active BACTRIM DS 800-160 MG ORAL TABLET 1 tab by mouth twice daily 201 04/09/01 TRIMETHOPRIM-SULFAMETHOXAZOLE 98925925932 No Longer Active Umer Sherman MD Active PRAMIPEXOLE DIHYDROCHLORIDE 0.125 MG ORAL TABLET take 1 tablet po qhs for restless leg syndrome. 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 Activ e TRIMETHOPRIM 100 MG ORAL TABLET 1/2 qd TRIM ETHOPRIM 91071365806 No Longer Active Chelsea Cardenas APRN Active BACTRIM DS 800-160 MG ORAL TABLET 1 tab by mouth twice daily 201 04/04/11 TRIMETHOPRIM-SULFAMETHOXAZOLE 95611829948 No Longer Active Umer Sherman MD Active BACTRIM DS 800-160 MG ORAL TABLET 1 tab by mouth twice daily X 10 DAYS TRIMETHOPRIM-SULFAMETHOXAZOLE 73820700537 No Longer Active Tesfaye Sherman MD Active AMOXICILLIN 500 MG ORAL CAPSULE 1 cap by mouth three times a day AMOXICILLIN 40667818333 No Longer Active MARCUS Maravilla A ctive B-12 1000 MCG ORAL LOZENGE 1 tab po daily CYANO COBALAMIN 34637763544 Active Tesfaye Sherman MD Active VITAMIN D3 2000 UNIT ORAL TABLET 1 daily, for vitamin D deficien cy CHOLECALCIFEROL 18550627836 No Longer Active Tesfaye Sherman MD Active ZITHROMAX 250 MG ORAL TABLET 2 po today, then 1 po q days 2-5 20 15/02/10 AZITHROMYCIN 76858445641 No Longer Active Tesfaye Sherman MD Active BACTRIM DS 800-160 MG ORAL TABLET 1 tab by mouth twice daily 201 5/01/23 TRIMETHOPRIM-SULFAMETHOXAZOLE 13001808415 No Longer Active Umer Sherman MD Active DIFLUCAN 150 MG ORAL TABLET 1 qd FLUCONAZOL E 12363481690 No Longer Active Kayla Cooper MD Active FLUTICASONE PROPIONATE 50 MCG/ACT NASAL SUSPENSION 1 spray each nostril twice daily FLUTICASONE PROPIONATE 10750137122 Active Umer Sherman MD Active LOVASTATIN 20 MG ORAL TABLET Take 1 tablet by mouth daily LOVASTATIN 79627453595 No Longer Active Tesfaye Sherman MD Acti ve MELOXICAM 7.5 MG ORAL TABLET 1 tablet by mouth daily 2 MELOXICAM 80389116878 No Longer Active Tesfaye Sherman MD Acti ve GABAPENTIN 300 MG ORAL CAPSULE Take two tablets by mouth every e vening GABAPENTIN 73074346684 No Longer Active Edith Burch MD A ctive GABAPENTIN 300 MG ORAL CAPSULE Take two tablets by mouth every e vening GABAPENTIN 300 MG ORAL CAPSULE 524384 GABAPENTIN I nactive MELOXICAM 7.5 MG ORAL TABLET 1 tablet by mouth daily 2 MELOXICAM 7.5 MG ORAL TABLET 611861 MELOXICAM Inactive LOVASTATIN 20 MG ORAL TABLET Take 1 tablet by mouth daily LOVASTATIN 20 MG ORAL TABLET 737348 LOVASTATIN Inactive DIFLUCAN 150 MG ORAL TABLET 1 qd DIFLUCAN 150 MG ORAL TABLET 511455 FLUCONAZOLE Inactive VITAMIN D3 2000 UNIT ORAL TABLET 1 daily, for vitamin D deficien cy VITAMIN D3 2000 UNIT ORAL TABLET CHOLECALCIFEROL Inactive AMOXICILLIN 500 MG ORAL CAPSULE 1 cap by mouth three times a day AMOXICILLIN 500 MG ORAL CAPSULE 657403 AMOXICILLIN Inactive BACTRIM DS 800-160 MG ORAL TABLET 1 tab by mouth twice daily X 10 DAYS BACTRIM DS 800-160 MG ORAL TABLET 542578 TRIMETHOPRIM-SULFAMETHOXAZOLE Inactive TRIMETHOPRIM 100 MG ORAL TABLET 1/2 qd 7 TRIMETHOPRIM 100 MG ORAL TABLET 686763 TRIMETHOPRIM Inactive CETIRIZINE HCL 5 MG ORAL TABLET Take 1 tablet by mouth daily CETIRIZINE HCL 5 MG ORAL TABLET 7876960 CETIRIZINE HCL Inactive PRAMIPEXOLE DIHYDROCHLORIDE 0.125 MG ORAL TABLET take 1 tablet po qhs for restless leg syndrome. PRAMIPEXOLE DIHYD ROCHLORIDE 0.125 MG ORAL TABLET 069493 PRAMIPEXOLE DIHYDROCHLORIDE Inactive MIRTAZAPINE 15 MG ORAL TABLET 1/2 tab by mouth at bedtime. 03/13 MIRTAZAPINE 15 MG ORAL TABLET 230150 MIRTAZAPINE In active DIFLUCAN 100 MG ORAL TABLET 1 tablet by mouth daily X 3 DAYS 201 04/09/01 DIFLUCAN 100 MG ORAL TABLET 337042 FLUCONAZOLE Inac tive DIFLUCAN 100 MG ORAL TABLET 1 tablet by mouth every other da y for 2 doses DIFLUCAN 100 MG ORAL TABLET 580553 FLUCONAZOLE Inactive CEFTIN 250 MG ORAL TABLET 1 tablet twice daily x 7 days CEFTIN 250 MG ORAL TABLET CEFUROXIME AXETIL Inactive CYMBALTA 30 MG ORAL CAPSULE DELAYED RELEASE PARTICLES 1 cap by mouth daily with 60mg CYMBALTA 30 MG ORAL CAPSULE DELAYED RELEASE PARTICLES 952964 DULOXETINE HCL Inactive CYMBALTA 60 MG ORAL CAPSULE DELAYED RELEASE PARTICLES Take 1 tablet by mouth daily CYMBALTA 60 MG ORAL CAPSULE DELAYED RELEA SE PARTICLES 701530 DULOXETINE HCL Inactive FOSAMAX 70 MG ORAL TABLET 1 po qweek. Take 30min prio r to first food/drink. Avoid lying down x 1 hour. FOSAMAX 70 MG ORAL TA BLET 061665 ALENDRONATE SODIUM Inactive DIFLUCAN 100 MG ORAL TABLET 1 tablet by mouth daily 19/08/26 DIFLUCAN 100 MG ORAL TABLET 036954 FLUCONAZOLE Inactive PREDNISONE 20 MG ORAL TABLET 1 tab twice daily for 3 d ay, then one daily for three days PREDNISONE 20 MG ORAL TABLET 427205 PREDNIS ONE Inactive PROAIR HFA 108 (90 BASE) MCG/ACT INHALATION AEROSOL SO LUTION 1 puff every 6 hours as needed PROAIR HFA 108 (90 B ASE) MCG/ACT INHALATION AEROSOL SOLUTION ALBUTEROL SULFATE Inactive MECLIZINE HCL 25 MG ORAL TABLET one tab po qday prn dizziness 20 17/09/06 MECLIZINE HCL 25 MG ORAL TABLET 788557 MECLIZINE HCL Inactive PREDNISONE 20 MG ORAL TABLET 1 tablet by mouth twice d aily for 3 days, then 1 tablet daily for 3 days PREDNISONE 20 MG ORAL TA BLET 148749 PREDNISONE Inactive DIFLUCAN 100 MG ORAL TABLET 1 tablet by mouth daily 20/06/06 DIFLUCAN 100 MG ORAL TABLET 19760711 FLUCONAZOLE Inactive REPHRESH PRO-B ORAL CAPSULE 1 tablet daily REPHRESH PRO-B ORAL CAPSULE LACTOBACILLUS Inactive RED YEAST RICE 600 MG ORAL CAPSULE 1 pill by mouth daily RED YEAST RICE 600 MG ORAL CAPSULE 473911 RED YEAST RICE EXTRACT In active SUDAFED [...] 20 19/02/09 DIFLUCAN 100 MG ORAL TABLET 431839 FLUCONAZOLE Inactive VENLAFAXINE HCL 75 MG ORAL TABLET 1 am 1/2 at noon 201 07/07/09 VENLAFAXINE HCL 75 MG ORAL TABLET 737961 VENLAFAXINE HCL Inacti ve GABAPENTIN 300 MG ORAL CAPSULE 1 po daily GABAPENTIN 300 MG ORAL CAPSULE 432869 GABAPENTIN Inactive SUDAFED 12 HOUR 120 MG ORAL TABLET EXTENDED RELEASE 12 HOUR 1 pill twice daily if needed for congestion SUDAFED 12 HOUR 120 MG ORAL TABLET EXTENDED RELEASE 12 HOUR PSEUDOEPHEDRINE HCL Inactive AMITRIPTYLINE HCL 10 MG ORAL TABLET 1 tablet nightly by mout h for neuropathy AMITRIPTYLINE HCL 10 MG ORAL TABLET 565791 AMITRIPTYLINE HCL Inactive AMITRIPTYLINE HCL 50 MG ORAL TABLET 1 po q hs for sleep AMITRIPTYLINE HCL 50 MG ORAL TABLET 151768 AMITRIPTYLINE HCL Inac tive PREDNISONE 20 MG ORAL TABLET 1 tab twice daily for 3 d ay, then one daily for three days PREDNISONE 20 MG ORAL TABLET 027011 PREDNIS ONE Inactive ROPINIROLE HCL 0.25 MG ORAL TABLET 1 TAB PO Q HS 05/31 ROPINIROLE HCL 0.25 MG ORAL TABLET 035234 ROPINIROLE HCL Inact trent ROPINIROLE HCL 0.5 MG ORAL TABLET 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 ROPINIROLE HCL 0.5 MG ORAL TABLET 638473 ROPINIR OLE HCL Inactive ROPINIROLE HCL 1 MG ORAL TABLET 1 tab po q hs ROPINIROLE HCL 1 MG ORAL TABLET 169231 ROPINIROLE HCL Inactive ROPINIROLE HCL 2 MG ORAL TABLET 1 po at hs 7 ROPINIROLE HCL 2 MG ORAL TABLET 432603 ROPINIROLE HCL Inactive MIRAPEX 0.125 MG ORAL TABLET 1 po nightly MIRAPEX 0.125 MG ORAL TABLET 268971 PRAMIPEXOLE DIHYDROCHLORIDE Inactive MIRAPEX 0.25 MG ORAL TABLET 1 tablet by mouth at night for r estless leg MIRAPEX 0.25 MG ORAL TABLET 840762 PRAM IPEXOLE DIHYDROCHLORIDE Inactive HYDROXYZINE HCL 25 MG ORAL TABLET 1 tab po at HS prn sleep 08/02 HYDROXYZINE HCL 25 MG ORAL TABLET 235622 HYDROXYZINE HC L Inactive DIFLUCAN 100 MG ORAL TABLET 1 tablet by mouth daily 20 21/08/28 DIFLUCAN 100 MG ORAL TABLET 19760711 FLUCONAZOLE Inactive BACLOFEN 10 MG ORAL TABLET Take one tablet by mouth three times a day BACLOFEN 10 MG ORAL TABLET 19730704 BACLOFEN Inact trent PREDNISONE 20 MG ORAL TABLET 1 tab twice daily for 3 d ay, then one daily for three days PREDNISONE 20 MG ORAL TABLET 951638 PREDNIS ONE Inactive UNISOM SLEEPMELTS 25 MG [...] 03/03/23 BACTRIM DS 800-160 MG ORAL TABLET 19830105 TRIMETHOPRIM-SULFAMETHOXAZOLE Inactive ZITHROMAX 250 MG ORAL TABLET 2 po today, then 1 po q days 2-5 20 15/02/10 ZITHROMAX 250 MG ORAL TABLET 783446 AZITHROMYCIN [place] ctive BACTRIM DS 800-160 MG ORAL TABLET 1 tab by mouth twice daily 201 04/04/11 BACTRIM DS 800-160 MG ORAL TABLET 19830105 [...] a day AMOXICILLIN 500 MG ORAL CAPSULE 686979 AMOXICILLIN Inactive ZITHROMAX 250 MG ORAL TABLET 2 po today, then 1 po q days 2-5 20 20/04/28 ZITHROMAX 250 MG ORAL TABLET 681796 AZITHROMYCIN Mayela ctive DIFLUCAN 100 MG ORAL TABLET 1 tablet by mouth daily 20 20/05/01 DIFLUCAN 100 MG ORAL TABLET 345509 FLUCONAZOLE Inactive BACTRIM DS 800-160 MG ORAL TABLET 1 tab by mouth twice daily 201 06/09/02 BACTRIM DS 800-160 MG ORAL TABLET 19830105 TRIMETHOPRIM-SULFAMETHOXAZOLE Inactive HYDROCHLOROTHIAZIDE 12.5 MG ORAL CAPSULE 1 pill by mough daily 2 HYDROCHLOROTHIAZIDE 12.5 MG ORAL CAPSULE [facility] LOROTHIAZIDE Inactive BACTRIM DS 800-160 MG ORAL TABLET 1 tab by mouth twice daily 201 07/08/06 BACTRIM DS 800-160 MG ORAL TABLET 19830105 TRIMETHOPRIM-SULFAMETHOXAZOLE Inactive DIFLUCAN 100 MG ORAL TABLET 1 tablet by mouth daily 20 21/03/11 DIFLUCAN 100 MG ORAL TABLET 671607 FLUCONAZOLE Inactive ZITHROMAX 250 MG ORAL TABLET 2 po today, then 1 po q days 2-5 20 21/08/28 ZITHROMAX 250 MG ORAL TABLET 368343 AZITHROMYCIN [place] ctive FLUCONAZOLE 100 MG ORAL TABLET 1 by mouth daily for yeast infect ion FLUCONAZOLE 100 MG ORAL TABLET 043367 FLUCONAZOLE I nactive Advance Directives Directive Description Start Date PERMISSION TO SHARE DISCUSSED WITH PATIENT -- NO DECISION MADE DISCUSED WITH PATIENT -- FULL CODE LIVING WILL ON FILE DURABLE POWER OF OCCUPATIONAL THERAPIST ASSISTANTS FOR HEALTHCARE Vital Signs Date Name Value [...] Magnesium - Chemistry cholesterol, serum 196 mg/dL 146-108 4547/07/30 triglyceride, serum, fasting 86 mg/dL 30-200 HDL cholesterol, serum 41 mg/dL 32-60 LDL cholesterol, serum 138 mg/dL 0-130 sodium, serum 140 mmol/L 152-657 8231/07/30 carbon dioxide, venous blood 28.6 mmol/L 21.0-32 [...] 5.0-8.5 Encounters Code Encounter Date Provider Facility CPT-10160 [id number] Vst-Est Level IV 13:49:08 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 Mendy Stovallord [facility] CPT-95074 [id number] Vst-Est Level IV 11:39:[address] Tesfaye Sherman MD [facility] CPT-64591 [id number] Vst-Est Level IV 14:08:03 C BRIDGET Sherman MD [facility] CPT-59261 Level 3 Est. Patient 18:06:36 CDT Tesfaye pearson MD [facility] CPT-53240 [id number] Vst-Est Level IV 17:09:34 C BRIDGET Sherman MD [facility] CPT-70310 Level 3 Est. Patient 17:27:08 CDT León hernandez APRN [facility] CPT-12589 [id number] Vst-Est Level IV 14:00:[address] Tesfaye Sherman MD [facility] CPT-40251 [id number] Vst-Est Level IV 19:27:[address] Tesfaye Sherman MD [facility] CPT-10771 [id number] Vst-Est Level IV 10:41:41 C BRIDGET Sherman MD [facility] CPT-93936 [id number] Vst-Est Level III 09:40:56 CDT Tesfaye Sherman MD [facility] CPT-36515 Level 4 Est. Patient 22:18:12 CDT Tesfaye pearson MD [facility] CPT-07661 Level 4 Est. Patient 14:44:33 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 Tesfaye pearson MD [facility] CPT-25065 Level 4 Est. Patient 13:55:29 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 Tesfaye pearson MD [facility] CPT-35231 Level 4 Est. Patient 17:07:34 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 Tesfaye pearson MD [facility] CPT-94260 Level 4 Est. Patient 13:56:54 CDT Tesfaye pearson MD [facility]-40436 Level 4 Est. Patient 13:24:25 CDT Chelsea sanz APRN [facility] CPT-21284 Level 4 Est. Patient 09:14:56 CDT Tesfaye pearson MD [facility]-10696 Level 4 Est. Patient 18:40:25 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 Tesfaye pearson MD [facility]-05853 Level 4 Est. Patient 18:13:07 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 Tesfaye pearson MD [facility]-15352 Level 3 Est. Patient 10:46:32 CDT Rj cotto DO [facility] CPT-22515 Level 4 Est. Patient 20:19:25 CDT Tesfaye pearson MD [facility]-13921 Level 3 Est. Patient 09:07:31 CDT Tesfaye pearson MD [facility]-02982 Level 4 Est. Patient 13:12:56 CDT Tesfaye pearson MD [facility]-78433 Level 4 Est. Patient 21:24:55 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 Tesfaye pearson MD [facility]-73030 Level 3 Est. Patient 13:45:04 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 Tesfaye pearson MD [facility] CPT-11234 Level 4 Est. Patient 13:50:45 CDT Tesfaye pearson MD [facility] CPT-68511 Level 3 Est. Patient 10:16:10 CDT Tesfaye pearson MD [facility] CPT-33754 Level 3 Est. Patient 16:36:07 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 Kayla jameson MD [facility]-25874 Level 4 Est. Patient 16:00:14 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 Tesfaye pearson MD [facility] CPT-51029 Level 4 Est. Patient 11:02:24 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 Tesfaye pearson MD [facility] CPT-68792 Level 3 Est. Patient 20:21:43 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 Kayla jameson MD [facility] CPT-25326 Level 3 Est. Patient 13:27:28 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 aKyla jameson MD [facility] CPT-84465 Level 4 Est. Patient 15:57:17 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 Tesfaye pearson MD [facility] CPT-99353 Level 3 New Patient 13:25:47 CDT Tesfaye kidd MD [facility] CPT-24484 Level 3 New Patient 17:22:21 CDT J John angel MD [facility] Procedures Code Procedure Name Date Entry Date Standard Desc ription [id number] (4274F 2P) Patient Reason Influenza immu nization not administered 13:25:19 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 CPT-40534 Bone Density - XRAY USE ONLY 15:21:33 CDT 2 CPT-16195 Venipuncture Draw Fee 16:12:22 CDT CPT-G0439 Subsequent Annual Wellness Exam 18:06:36 CDT CPT-G0439 Subsequent Annual Wellness Exam 22:18:11 CDT CPT-89992 Bone Density - XRAY USE ONLY 11:43:58 CDT 2 CPT-11524 Bone Density - XRAY USE ONLY 10:05:16 CDT 2 CPT-10161 Prv Med New Pt 40-64 yrs 18:19:25 CDT 2016 CPT-04640 Foot, right, comp min 3V - XRAY USE ONLY 10:38:34 CDT CPT-G0439 Subsequent Annual Wellness Exam 13:55:04 CDT CPT-G0438 Initial Annual Wellness Exam 11:23:17 CD T CPT-J2930 Solu Medrol 125 mg (Methyl Prednisolone Sodium Succinate) 17:29:12 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 CPT-79657 Abx/Therapy Injection 17:29:11 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 CPT-J2930 Solu Medrol 125 mg (Methyl Prednisolone Sodium Succinate) 12:34:38 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 CPT-J3420 Vitamin B12 1000mcg (Cyanocobalamin) 09:12:55 CDT CPT-J3420 Vitamin B12 1000mcg (Cyanocobalamin) 16:28:06 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 CPT-60291 Venipuncture Draw Fee 08:39:53 CDT CPT-J3420 Vitamin B12 1000mcg (Cyanocobalamin) 08:46:22 CDT CPT-04193 Abx/Therapy Injection 08:46:22 CDT CPT-J3420 Vitamin B12 1000mcg (Cyanocobalamin) 08:41:26 CDT CPT-14484 Abx/Therapy Injection 08:41:26 CDT CPT-J3420 Vitamin B12 1000mcg (Cyanocobalamin) 08:57:15 CDT CPT-10190 Abx/Therapy Injection 08:57:15 CDT CPT-J3420 Vitamin B12 1000mcg (Cyanocobalamin) 10:59:03 CDT CPT-46013 Abx/Therapy Injection 10:59:03 CDT CPT-J3420 Vitamin B12 1000mcg (Cyanocobalamin) 15:05:39 CDT CPT-67055 Abx/Therapy Injection 15:05:39 CDT CPT-J3420 Vitamin B12 1000mcg (Cyanocobalamin) 13:50:45 CDT CPT-J3420 Vitamin B12 1000mcg (Cyanocobalamin) 08:48:55 CDT CPT-73426 Abx/Therapy Injection 08:48:55 CDT CPT-J3420 Vitamin B12 1000mcg (Cyanocobalamin) 09:14:54 CDT CPT-66497 Abx/Therapy Injection 09:14:54 CDT CPT-J3420 Vitamin B12 1000mcg (Cyanocobalamin) 09:06:06 CDT CPT-13450 Abx/Therapy Injection 09:06:06 CDT CPT-J3420 Vitamin B12 1000mcg (Cyanocobalamin) 09:49:14 CDT CPT-16176 Abx/Therapy Injection 09:49:14 CDT CPT-J3420 Vitamin B12 1000mcg (Cyanocobalamin) 09:10:30 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 CPT-03103 Abx/Therapy Injection 09:10:30 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 CPT-J3420 Vitamin B12 1000mcg (Cyanocobalamin) 09:11:07 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 CPT-61014 Abx/Therapy Injection 09:11:07 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 CPT-J3420 Vitamin B12 1000mcg (Cyanocobalamin) 09:57:03 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 CPT-81265 Abx/Therapy Injection 09:57:03 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 CPT-J3420 Vitamin B12 1000mcg (Cyanocobalamin) 09:23:21 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 CPT-68263 Abx/Therapy Injection 09:23:21 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 CPT-09246 Urine Dip (Floor Use Only) 20:21:44 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 201 02/12/11 CPT-01294 UA Dip Auto (Floor Use Only) 10:04:39 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 2 CPT-72308 Urine Dip (Floor Use Only) 13:27:28 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 201 02/12/01 CPT-33464 Bladder Scan 13:27:28 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 CPT-86299 Abd single AP View 14:30:51 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 CPT-OV Office Visit 10:15:43 CDT CPT-95633 Urine Dip (Floor Use Only) 17:22:21 CDT 201 02/09/02 CPT-27475 Bladder Scan 17:22:21 CDT
--- OUTSIDE RECORDS SUMMARY | 2020-05-05 11:04 | XMS REPORT | Clinical Summary ---
Author Author Talon, Jeri Wood Organization [employer] Address Unknown Phone Unavailable Allergies, Adverse Reactions, [...] Sherman MD Routine general medical examination at [facility] acility Sinusitis 461.9 Resolved Tesfaye Sherman [...] Tesfaye Sherman MD Dysuria High risk meds chcf use V58.6 Active Tesfaye Sherman MD Long-term (current) drug use Yeast infection 112.9 Inactive Tesfaye Sherman MD Candidiasis of unspecified site Upper respiratory infection 465.9 Inactive Tesfaye Sherman MD Acute upper respiratory infections of un specified site Lower extremity edema, bilateral 782.3 Active 201 07/07/09 León Kodi 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 OR 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 Edema Peripheral neuropathy 356.9 Active Tesfaye lamb [...] Adult Eldon Shah Fer Dysuria ICD-788.1 Inactive Tesfyae Sherman MD 201 07/05/07 Yeast infection ICD-112.9 Inactive Tesfaye lamb MD Upper respiratory infection ICD-465.9 Inactive Tesfaye Sherman MD Medication List Medication Instructions Start Date Stop Date Generic Name NDC Status Provider Patient Instruction DIFLUCAN 100 MG ORAL TABLET 1 tablet by mouth daily 20 23/12/05 FLUCONAZOLE [id number] Active Tesfaye Sherman MD Active [facility] NIACIN FLUSH FREE 400-100 MG ORAL CAPSULE 1 daily NIACIN-INOSITOL 81618143865 No Longer Active Tesfaye Sherman MD A ctive FISH OIL 1000 MG ORAL CAPSULE DELAYED RELEASE 1 pill b y mouth daily for cholesterol OMEGA-3 FATTY ACIDS 41452359129 No Longe r Active Tesfaye Sherman MD Active UNISOM SLEEPMELTS 25 MG ORAL TABLET DISINTEGRATING 1.5 po q hs DIPHENHYDRAMINE HCL (SLEEP) 99701824671 No Longer Active Venkata Sherman MD Active PREDNISONE 20 MG ORAL TABLET 1 tab twice daily for 3 d ay, then one daily for three days PREDNISONE 98409535371 No Longer Active Tesfaye Sherman MD Active BACLOFEN 10 MG ORAL TABLET Take one tablet by mouth three times a day BACLOFEN 35681977241 No Longer Active Tesfaye Sherman MD Active LIDOCAINE 4 % EXTERNAL CREAM Apply to back prn pain LIDOCAINE 37685491826 Active Tesfaye Sherman MD Active TIZANIDINE HCL 2 MG ORAL TABLET 2 Mg in the AM and 6mg q hs 07/05 TIZANIDINE HCL 32093784169 Active Tesfaye Sherman MD Active HYDROXYZINE HCL 25 MG TABS TAKE 1 TABLET BY MOUTH AT B EDTIME NEEDED FOR SLEEP HYDROXYZINE HCL 91357187173 Active Lisa Hughes, RM A Active FLUCONAZOLE 100 MG ORAL TABLET 1 by mouth daily for yeast infect ion FLUCONAZOLE 72095024145 No Longer Active Laurence Dominguez Acti ve ZITHROMAX 250 MG ORAL TABLET 2 po today, then 1 po q days 2-5 20 21/08/28 AZITHROMYCIN 30713683257 No Longer Active Tesfaye Sherman MD Active DIFLUCAN 100 MG ORAL TABLET 1 tablet by mouth daily 20 21/08/28 FLUCONAZOLE 35025192233 No Longer Active Tesfaye Sherman MD Acti ve HYDROXYZINE HCL 25 MG ORAL TABLET 1 tab po at HS prn sleep 08/02 HYDROXYZINE HCL 87949292846 No Longer Active Tesfaye Sherman MD Active MIRAPEX 0.5 MG ORAL TABLET 1 tablet at night for restless leg. 2018 PRAMIPEXOLE DIHYDROCHLORIDE 76630329495 Active Laurence Raida Active MIRAPEX 0.25 MG ORAL TABLET 1 tablet by mouth at night for r estless leg PRAMIPEXOLE DIHYDROCHLORIDE 93050725231 No Longer Act trent Laurence Raida Active MIRAPEX 0.125 MG ORAL TABLET 1 po nightly PRAMIPEXOLE DIHYDROCHLORIDE 79433323214 No Longer Active Laurence Raida Active ROPINIROLE HCL 2 MG ORAL TABLET 1 po at hs ROPI NIROLE HCL 77529057206 No Longer Active Laurence Raida Active ROPINIROLE HCL 1 MG ORAL TABLET 1 tab po q hs ROPINIROLE HCL 63386520589 No Longer Active Laurence Raida Active ROPINIROLE HCL 0.5 MG ORAL TABLET 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 ROPINIROLE HCL 55097491121 No Longer Active MARCUS Panchal Active ROPINIROLE HCL 0.25 MG ORAL TABLET 1 TAB PO Q HS 05/31 ROPINIROLE HCL 56470697379 No Longer Active Tesfaye Sherman MD Ac tive PREDNISONE 20 MG ORAL TABLET 1 tab twice daily for 3 d ay, then one daily for three days PREDNISONE 32216447617 No Longer Active Tesfaye Sherman MD Active AMITRIPTYLINE HCL 50 MG ORAL TABLET 1 po q hs for sleep AMITRIPTYLINE HCL 58420286941 No Longer Active Tesfaye Sherman MD Active AMITRIPTYLINE HCL 10 MG ORAL TABLET 1 tablet nightly by mout h for neuropathy AMITRIPTYLINE HCL 30160719466 No Longer Active MARCUS Stapleton Active DIFLUCAN 100 MG ORAL TABLET 1 tablet by mouth daily 20 21/03/11 FLUCONAZOLE 67767392107 No Longer Active Tesfaye Sherman MD Acti ve BACTRIM DS 800-160 MG ORAL TABLET 1 tab by mouth twice daily 201 07/08/06 TRIMETHOPRIM-SULFAMETHOXAZOLE 55555225200 No Longer Active Umer Sherman MD Active CLARITIN 10 MG ORAL TABLET Take one by mouth daily LORATADINE 56251423892 Active Tesfaye Shreman MD Active SUDAFED 12 HOUR 120 MG ORAL TABLET EXTENDED RELEASE 12 HOUR 1 pill twice daily if needed for congestion PSEUDOEPHEDRINE HCL 329308621 13 No Longer Active Tesfaye Sherman MD Active FENOFIBRATE 145 MG ORAL TABLET 1 by mouth daily FENOFIBRATE 50790769282 Active Laurence Dominguez Active GABAPENTIN 300 MG ORAL CAPSULE 1 po daily GABAP ENTIN 95101204979 No Longer Active Tesfaye Sherman MD Active HYDROCHLOROTHIAZIDE 12.5 MG ORAL CAPSULE 1 pill by mough daily 2 HYDROCHLOROTHIAZIDE 49690845028 No Longer Active León Mariee APRN Active VENLAFAXINE HCL 75 MG ORAL TABLET 1 am 1/2 at noon 201 07/07/09 VENLAFAXINE HCL 00656699913 No Longer Active León Mariee APRN Act trent DIFLUCAN 100 MG ORAL TABLET 1 tablet by mouth daily 20 19/02/09 FLUCONAZOLE 30210453993 No Longer Active León Mariee APRN Active DIFLUCAN 100 MG ORAL TABLET 1 tablet by mouth daily 20 19/02/09 FLUCONAZOLE 52855195918 No Longer Active León Mariee APRN Active OXYCODONE-ACETAMINOPHEN 5-325 MG ORAL TABLET Take one tablet by mouth every 6 hours 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 Use sparingly OXYCODONE-ACETAMINOPHEN 10460691303 Active Tesfaye villar MD Active CLONAZEPAM 0.5 MG ORAL TABLET Take 1/2 qam, and 1/2 qpm CLONAZEPAM 40601393772 Active Tesfaye Sherman MD Active PRELIEF 340 (65-50) MG (CA-P) ORAL TABLET CALCIUM GLYCEROPHOSPHATE 27067670420 No Longer Active Tesfaye Sherman MD Active SUDAFED 24 HOUR 240 MG ORAL TABLET EXTENDED RELEASE 24 HOUR 1 tab po daily PSEUDOEPHEDRINE HCL 07560225728 No Longer Active Raul Sherman MD Active RED YEAST RICE 600 MG ORAL CAPSULE 1 pill by mouth daily RED YEAST RICE EXTRACT 96266973197 No Longer Active Tesfaye Sherman MD Active REPHRESH PRO-B ORAL CAPSULE 1 tablet daily LACT OBACILLUS 29597006276 No Longer Active Tesfaye Sherman MD Active ABILIFY 2 MG ORAL TABLET 1 by mouth daily. MARIA ELENA PIPRAZOLE 12503347179 Active Tesfaye Sherman MD Active CYMBALTA 60 MG ORAL CAPSULE DELAYED RELEASE PARTICLES 1 cap by mouth daily for pain DULOXETINE HCL 68356111814 Active MARCUS Lindsay Active DIFLUCAN 100 MG ORAL TABLET 1 tablet by mouth daily 20/06/06 FLUCONAZOLE 51963630751 No Longer Active Tesfaye Sherman MD Acti ve PREDNISONE 20 MG ORAL TABLET 1 tablet by mouth twice d aily for 3 days, then 1 tablet daily for 3 days PREDNISONE 02007924888 No L onger Active Tesfaye Sherman MD Active BACTRIM DS 800-160 MG ORAL TABLET 1 tab by mouth twice daily 201 06/09/02 TRIMETHOPRIM-SULFAMETHOXAZOLE 15357738435 No Longer Active Fer Dominguez Active DIFLUCAN 100 MG ORAL TABLET 1 tablet by mouth daily 20 20/05/01 FLUCONAZOLE 66450759493 No Longer Active Tesfaye Sherman MD Acti ve ZITHROMAX 250 MG ORAL TABLET 2 po today, then 1 po q days 2-5 20 20/04/28 AZITHROMYCIN 20371889803 No Longer Active Tesfaye Sherman MD Active MECLIZINE HCL 25 MG ORAL TABLET one tab po qday prn dizziness 20 17/09/06 MECLIZINE HCL 27500329765 No Longer Active Tesfaye Sherman MD Active PROAIR HFA 108 (90 BASE) MCG/ACT INHALATION AEROSOL SO LUTION 1 puff every 6 hours as needed ALBUTEROL SULFATE 75510457449 No Long er Active Tesfaye Sherman MD Active PREDNISONE 20 MG ORAL TABLET 1 tab twice daily for 3 d ay, then one daily for three days PREDNISONE 65706545209 No Longer Active Tesfaye Sherman MD Active MECLIZINE HCL 25 MG ORAL TABLET one 4 times a day as needed for dizziness MECLIZINE HCL 04787284742 Active Tesfaye Sherman MD Active AMOXICILLIN 500 MG ORAL CAPSULE 1 cap by mouth three times a day AMOXICILLIN 29468468784 No Longer Active Laurence Dominguez Acti ve DIFLUCAN 100 MG ORAL TABLET 1 tablet by mouth daily 20 19/08/26 FLUCONAZOLE 47518538720 No Longer Active Tesfaye Sherman MD Acti ve BACTRIM DS 800-160 MG ORAL TABLET 1 tab by mouth twice daily 201 05/10/28 TRIMETHOPRIM-SULFAMETHOXAZOLE 33420225932 No Longer Active Fer Dominguez Active FOSAMAX 70 MG ORAL TABLET 1 po qweek. Take 30min prio r to first food/drink. Avoid lying down x 1 hour. ALENDRONATE SODIUM 13397040 144 No Longer Active Laurence Dominguez Active CYMBALTA 60 MG ORAL CAPSULE DELAYED RELEASE PARTICLES Take 1 tablet by mouth daily DULOXETINE HCL 90387630693 No Longer Active Edith Burch MD Active CYMBALTA 30 MG ORAL CAPSULE DELAYED RELEASE PARTICLES 1 cap by mouth daily with 60mg DULOXETINE HCL 33646175151 No Longer Active Jordan Burch MD Active DIFLUCAN 100 MG ORAL TABLET 1 tablet by mouth daily 19/03/05 FLUCONAZOLE 59338098533 No Longer Active Tesfaye Sherman MD Acti ve BACTRIM DS 800-160 MG ORAL TABLET 1 tab by mouth twice daily 201 05/06/28 TRIMETHOPRIM-SULFAMETHOXAZOLE 11234237754 No Longer Active Umer Sherman MD Active BACTRIM DS 800-160 MG ORAL TABLET 1 tab by mouth twice daily 201 05/04/15 TRIMETHOPRIM-SULFAMETHOXAZOLE 32245474821 No Longer Active Umer Sherman MD Active DIFLUCAN 150 MG ORAL TABLET 1 tablet by mouth daily 20 18/09/20 FLUCONAZOLE 49334089909 No Longer Active Tesfaye Sherman MD Acti ve BACTRIM DS 800-160 MG ORAL TABLET 1 tab by mouth twice daily 201 04/13/17 TRIMETHOPRIM-SULFAMETHOXAZOLE 61546055580 No Longer Active Umer Sherman MD Active CEFTIN 250 MG ORAL TABLET 1 tablet twice daily x 7 days CEFUROXIME AXETIL 30569864596 No Longer Active Tesfaye Sherman MD Active DIFLUCAN 100 MG ORAL TABLET 1 tablet by mouth every other da y for 2 doses FLUCONAZOLE 90479689206 No Longer Active Tesfaye barron MD Active DIFLUCAN 100 MG ORAL TABLET 1 tablet by mouth daily X 3 DAYS 201 04/09/01 FLUCONAZOLE 41284617823 No Longer Active Rj Ravi MIRTAZAPINE 15 MG ORAL TABLET 1/2 tab by mouth at bedtime. 03/13 MIRTAZAPINE 77838096650 No Longer Active Tesfaye Sherman MD Active BACTRIM DS 800-160 MG ORAL TABLET 1 tab by mouth twice daily 201 04/09/01 TRIMETHOPRIM-SULFAMETHOXAZOLE 96244249090 No Longer Active Umer Sherman MD Active PRAMIPEXOLE DIHYDROCHLORIDE 0.125 MG ORAL TABLET take 1 tablet po qhs for restless leg syndrome. PRAMIPEXOLE DIHYDROCHLORI DE 52394564636 No Longer Active Tesfaye Sherman MD Active MAGNESIUM 400 MG ORAL TABLET 1 tab po daily MAGNE SIUM 95638208309 Active Chelsea Theresa GALLERY OR MUSEUM ATTENDANT Active CETIRIZINE HCL 5 MG ORAL TABLET Take 1 tablet by mouth daily CETIRIZINE HCL 03432443350 No Longer Active Chelsea Cardenas GALLERY OR MUSEUM ATTENDANT Activ e TRIMETHOPRIM 100 MG ORAL TABLET 1/2 qd TRIM ETHOPRIM 14610245141 No Longer Active Chelsea Cardenas APRN Active BACTRIM DS 800-160 MG ORAL TABLET 1 tab by mouth twice daily 201 04/04/11 TRIMETHOPRIM-SULFAMETHOXAZOLE 25452528053 No Longer Active Umer Sherman MD Active BACTRIM DS 800-160 MG ORAL TABLET 1 tab by mouth twice daily X 10 DAYS TRIMETHOPRIM-SULFAMETHOXAZOLE 79210110760 No Longer Active Tesfaye Sherman MD Active AMOXICILLIN 500 MG ORAL CAPSULE 1 cap by mouth three times a day AMOXICILLIN 14542872522 No Longer Active MARCUS Maravilla A ctive B-12 1000 MCG ORAL LOZENGE 1 tab po daily CYANO COBALAMIN 27166756874 Active Tesfaye Sherman MD Active VITAMIN D3 2000 UNIT ORAL TABLET 1 daily, for vitamin D deficien cy CHOLECALCIFEROL 83066448878 No Longer Active Tesfaye Sherman MD Active ZITHROMAX 250 MG ORAL TABLET 2 po today, then 1 po q days 2-5 20 15/02/10 AZITHROMYCIN 46338374406 No Longer Active Tesfaye Sherman MD Active BACTRIM DS 800-160 MG ORAL TABLET 1 tab by mouth twice daily 201 5/01/23 TRIMETHOPRIM-SULFAMETHOXAZOLE 62522760575 No Longer Active Umer Sherman MD Active DIFLUCAN 150 MG ORAL TABLET 1 qd FLUCONAZOL E 66367256971 No Longer Active Kayla Cooper MD Active FLUTICASONE PROPIONATE 50 MCG/ACT NASAL SUSPENSION 1 spray each nostril twice daily FLUTICASONE PROPIONATE 36593086157 Active Umer Sherman MD Active LOVASTATIN 20 MG ORAL TABLET Take 1 tablet by mouth daily LOVASTATIN 03901081948 No Longer Active Tesfaye Sherman MD Acti ve MELOXICAM 7.5 MG ORAL TABLET 1 tablet by mouth daily 2 MELOXICAM 15861686871 No Longer Active Tesfaye Sherman MD Acti ve GABAPENTIN 300 MG ORAL CAPSULE Take two tablets by mouth every e vening GABAPENTIN 28736566935 No Longer Active Edith Burch MD A ctive AMITRIPTYLINE HCL 10 MG ORAL TABLET 1 tablet nightly by mout h for neuropathy AMITRIPTYLINE HCL 10 MG ORAL TABLET 566585 AMITRIPTYLINE HCL Inactive AMITRIPTYLINE HCL 50 MG ORAL TABLET 1 po q hs for sleep AMITRIPTYLINE HCL 50 MG ORAL TABLET 116409 AMITRIPTYLINE HCL Inac tive AMOXICILLIN 500 MG ORAL CAPSULE 1 cap by mouth three times a day AMOXICILLIN 500 MG ORAL CAPSULE 703537 AMOXICILLIN Inactive AMOXICILLIN 500 MG ORAL CAPSULE 1 cap by mouth three times a day AMOXICILLIN 500 MG ORAL CAPSULE 324243 AMOXICILLIN Inactive BACLOFEN 10 MG ORAL TABLET Take one tablet by mouth three times a day BACLOFEN 10 MG ORAL TABLET 160215 BACLOFEN Inact trent BACTRIM DS 800-160 MG ORAL TABLET 1 tab by mouth twice daily 201 03/03/23 BACTRIM DS 800-160 MG ORAL TABLET 776296 TRIMETHOPRIM-SULFAMETHOXAZOLE Inactive BACTRIM DS 800-160 MG ORAL TABLET 1 tab by mouth twice daily 201 04/04/11 BACTRIM DS 800-160 MG ORAL TABLET 408475 TRIMETHOPRIM-SULFAMETHOXAZOLE Inactive BACTRIM DS 800-160 MG ORAL TABLET 1 tab by mouth twice daily 201 04/09/01 BACTRIM DS 800-160 MG ORAL TABLET 974610 TRIMETHOPRIM-SULFAMETHOXAZOLE Inactive BACTRIM DS 800-160 MG ORAL TABLET 1 tab by mouth twice daily 201 04/13/17 BACTRIM DS 800-160 MG ORAL TABLET 262490 TRIMETHOPRIM-SULFAMETHOXAZOLE Inactive BACTRIM DS 800-160 MG ORAL TABLET 1 tab by mouth twice daily 201 06/09/02 BACTRIM DS 800-160 MG ORAL TABLET 235709 TRIMETHOPRIM-SULFAMETHOXAZOLE Inactive BACTRIM DS 800-160 MG ORAL TABLET 1 tab by mouth twice daily 201 05/04/15 BACTRIM DS 800-160 MG ORAL TABLET 986239 TRIMETHOPRIM-SULFAMETHOXAZOLE Inactive BACTRIM DS 800-160 MG ORAL TABLET 1 tab by mouth twice daily 201 05/06/28 BACTRIM DS 800-160 MG ORAL TABLET 632086 TRIMETHOPRIM-SULFAMETHOXAZOLE Inactive BACTRIM DS 800-160 MG ORAL TABLET 1 tab by mouth twice daily 201 05/10/28 BACTRIM DS 800-160 MG ORAL TABLET 974510 TRIMETHOPRIM-SULFAMETHOXAZOLE Inactive BACTRIM DS 800-160 MG ORAL TABLET 1 tab by mouth twice daily 201 07/08/06 BACTRIM DS 800-160 MG ORAL TABLET 041388 TRIMETHOPRIM-SULFAMETHOXAZOLE Inactive BACTRIM DS 800-160 MG ORAL [...] 08/02 HYDROXYZINE HCL 25 MG ORAL TABLET 762025 HYDROXYZINE HC L Inactive PREDNISONE 20 MG ORAL TABLET 1 tab twice daily for 3 d ay, then one daily for three days PREDNISONE 20 MG ORAL TABLET 749048 PREDNIS ONE Inactive PREDNISONE 20 MG ORAL TABLET 1 tablet by mouth twice d aily for 3 days, then 1 tablet daily for 3 days PREDNISONE 20 MG ORAL TA BLET 389307 PREDNISONE Inactive PREDNISONE 20 MG ORAL TABLET 1 tab twice daily for 3 d ay, then one daily for three days PREDNISONE 20 MG ORAL TABLET 151712 PREDNIS ONE Inactive PREDNISONE 20 MG ORAL TABLET 1 tab twice daily for 3 d ay, then one daily for three days PREDNISONE 20 MG ORAL TABLET 287144 PREDNIS ONE Inactive TRIMETHOPRIM 100 MG ORAL TABLET 1/2 qd 7 TRIMETHOPRIM 100 MG ORAL TABLET 943141 TRIMETHOPRIM Inactive FLUCONAZOLE 100 MG ORAL TABLET 1 by mouth daily for yeast infect ion FLUCONAZOLE 100 MG ORAL TABLET 960423 FLUCONAZOLE I nactive LOVASTATIN 20 MG ORAL TABLET Take 1 tablet by mouth daily LOVASTATIN 20 MG ORAL TABLET 693709 LOVASTATIN Inactive MECLIZINE HCL 25 MG ORAL TABLET one tab po qday prn dizziness 20 17/09/06 MECLIZINE HCL 25 MG ORAL TABLET 203879 MECLIZINE HCL Inactive VENLAFAXINE HCL 75 MG ORAL TABLET 1 am 1/2 at noon 201 07/07/09 VENLAFAXINE HCL 75 MG ORAL TABLET 850747 VENLAFAXINE HCL Inacti ve DIFLUCAN 150 MG ORAL TABLET 1 qd DIFLUCAN 150 MG ORAL TABLET 423109 FLUCONAZOLE Inactive DIFLUCAN 150 MG ORAL TABLET 1 tablet by mouth daily 20 18/09/20 DIFLUCAN 150 MG ORAL TABLET 916963 FLUCONAZOLE Inactive CETIRIZINE HCL 5 MG ORAL TABLET Take 1 tablet by mouth daily CETIRIZINE HCL 5 MG ORAL TABLET 3163590 CETIRIZINE HCL Inactive MIRTAZAPINE 15 MG ORAL TABLET 1/2 tab by mouth at bedtime. 03/13 MIRTAZAPINE 15 MG ORAL TABLET 176711 MIRTAZAPINE In active GABAPENTIN 300 MG ORAL CAPSULE Take two tablets by mouth every e vening GABAPENTIN 300 MG ORAL CAPSULE 904706 GABAPENTIN I nactive GABAPENTIN 300 MG ORAL CAPSULE 1 po daily GABAPENTIN 300 MG ORAL CAPSULE 248417 GABAPENTIN Inactive HYDROCHLOROTHIAZIDE 12.5 MG ORAL CAPSULE 1 pill by mough daily 2 HYDROCHLOROTHIAZIDE 12.5 MG ORAL CAPSULE 595925 HYDROCH LOROTHIAZIDE Inactive MELOXICAM 7.5 MG ORAL TABLET 1 tablet by mouth daily 2 MELOXICAM 7.5 MG ORAL TABLET 755649 MELOXICAM Inactive ZITHROMAX 250 MG ORAL TABLET 2 po today, then 1 po q days 2-5 20 20/04/28 ZITHROMAX 250 MG ORAL TABLET 931480 AZITHROMYCIN [place] ctive ZITHROMAX 250 MG ORAL TABLET 2 po today, then 1 po q days 2-5 20 21/08/28 ZITHROMAX 250 MG ORAL TABLET 918082 AZITHROMYCIN [place] ctive ZITHROMAX 250 MG ORAL TABLET 2 po today, then 1 po q days 2-5 20 15/02/10 ZITHROMAX 250 MG ORAL TABLET 726286 AZITHROMYCIN [place] ctive PRAMIPEXOLE DIHYDROCHLORIDE 0.125 MG ORAL TABLET take 1 tablet po qhs for restless leg syndrome. PRAMIPEXOLE DIHYD ROCHLORIDE 0.125 MG ORAL TABLET 575403 PRAMIPEXOLE DIHYDROCHLORIDE Inactive MIRAPEX 0.125 MG ORAL TABLET 1 po nightly MIRAPEX 0.125 MG ORAL TABLET 925711 PRAMIPEXOLE DIHYDROCHLORIDE Inactive MIRAPEX 0.25 MG ORAL TABLET 1 tablet by mouth at night for r estless leg MIRAPEX 0.25 MG ORAL TABLET 729878 PRAM IPEXOLE DIHYDROCHLORIDE Inactive ROPINIROLE HCL 0.25 MG ORAL TABLET 1 TAB PO Q HS 05/31 ROPINIROLE HCL 0.25 MG ORAL TABLET 957167 ROPINIROLE HCL Inact trent ROPINIROLE HCL 1 MG ORAL TABLET 1 tab po q hs ROPINIROLE HCL 1 MG ORAL TABLET 360398 ROPINIROLE HCL Inactive ROPINIROLE HCL 2 MG ORAL TABLET 1 po at hs 7 ROPINIROLE HCL 2 MG ORAL TABLET 610011 ROPINIROLE HCL Inactive ROPINIROLE HCL 0.5 MG ORAL TABLET 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 ROPINIROLE HCL 0.5 MG ORAL TABLET 018883 ROPINIR OLE HCL Inactive SUDAFED 24 HOUR 240 MG ORAL TABLET EXTENDED RELEASE 24 HOUR 1 tab po daily SUDAFED 24 HOUR 240 MG ORAL TABLET EXTENDED RELEASE 24 HOUR PSEUDOEPHEDRINE HCL Inactive FOSAMAX 70 MG ORAL TABLET 1 po qweek. Take 30min prio r to first food/drink. Avoid lying down x 1 hour. FOSAMAX 70 MG ORAL TA BLET 546015 ALENDRONATE SODIUM Inactive PRELIEF 340 (65-50) MG [...] MG ORAL CAPSULE DELAYED RELEA SE PARTICLES 907290 DULOXETINE HCL Inactive CYMBALTA 30 MG ORAL CAPSULE DELAYED RELEASE PARTICLES 1 cap by mouth daily with 60mg CYMBALTA 30 MG ORAL CAPSULE DELAYED RELEASE PARTICLES 503635 DULOXETINE HCL Inactive PROAIR HFA 108 (90 BASE) MCG/ACT INHALATION AEROSOL SO LUTION 1 puff every 6 hours as needed PROAIR HFA 108 (90 B ASE) MCG/ACT INHALATION AEROSOL SOLUTION ALBUTEROL SULFATE Inactive RED YEAST RICE 600 MG ORAL CAPSULE 1 pill by mouth daily RED YEAST RICE 600 MG ORAL CAPSULE 298221 RED YEAST RICE EXTRACT In active UNISOM [...] LIVING WILL ON FILE DURABLE POWER OF CALCULATOR OPERATOR FOR HEALTHCARE Vital Signs Date Name [...] Magnesium - Chemistry cholesterol, serum 196 mg/dL 351-903 1341/07/30 triglyceride, serum, fasting 86 mg/dL 30-200 HDL cholesterol, serum 41 mg/dL 32-60 LDL cholesterol, serum 138 mg/dL 0-130 sodium, serum 140 mmol/L 973-193 7745/07/30 carbon dioxide, venous blood 28.6 mmol/L 21.0-32 [...] 5.0-8.5 Encounters Code Encounter Date Provider Facility CPT-64536 [id number] Vst-Est Level IV 13:49:08 OIL AND GAS PRINCIPAL Mendy Stovallord [facility] CPT-35119 [id number] Vst-Est Level IV 11:39:[address] Tesfaye Sherman MD [facility] CPT-52638 [id number] Vst-Est Level IV 14:08:03 C BRIDGET Sherman MD [facility] CPT-78543 Level 3 Est. Patient 18:06:36 CDT Tesfaye pearson MD [facility] CPT-87741 [id number] Vst-Est Level IV 17:09:34 C BRIDGET Sherman MD [facility] CPT-62778 Level 3 Est. Patient 17:27:08 CDT León hernandez APRN [facility] CPT-42961 [id number] Vst-Est Level IV 14:00:[address] Tesfaye Sherman MD [facility] CPT-98640 [id number] Vst-Est Level IV 19:27:[address] Tesfaye Sherman MD [facility] CPT-89426 [id number] Vst-Est Level IV 10:41:41 C BRIDGET Sherman MD [facility] CPT-81582 [id number] Vst-Est Level III 09:40:56 CDT Tesfaye Sherman MD [facility] CPT-24176 Level 4 Est. Patient 22:18:12 CDT Tesfaye pearson MD [facility] CPT-85474 Level 4 Est. Patient 14:44:33 OIL AND GAS PRINCIPAL Tesfaye pearson MD [facility] CPT-88668 Level 4 Est. Patient 13:55:29 OIL AND GAS PRINCIPAL Tesfaye pearson MD [facility] CPT-88290 Level 4 Est. Patient 17:07:34 OIL AND GAS PRINCIPAL Tesfaye pearson MD [facility] CPT-73498 Level 4 Est. Patient 13:56:54 CDT Tesfaye pearson MD [facility]-62406 Level 4 Est. Patient 13:24:25 CDT Chelsea sanz APRN [facility] CPT-30029 Level 4 Est. Patient 09:14:56 CDT Tesfaye pearson MD [facility]-20180 Level 4 Est. Patient 18:40:25 OIL AND GAS PRINCIPAL Tesfaye pearson MD [facility]-78063 Level 4 Est. Patient 18:13:07 OIL AND GAS PRINCIPAL Tesfaye pearson MD [facility]-27876 Level 3 Est. Patient 10:46:32 CDT Rj cotto DO [facility] CPT-64794 Level 4 Est. Patient 20:19:25 CDT Tesfaye pearson MD [facility]-01592 Level 3 Est. Patient 09:07:31 CDT Tesfaye pearson MD [facility]-14253 Level 4 Est. Patient 13:12:56 CDT Tesfaye pearson MD [facility]-68265 Level 4 Est. Patient 21:24:55 OIL AND GAS PRINCIPAL Tesfaye pearson MD [facility]-20952 Level 3 Est. Patient 13:45:04 OIL AND GAS PRINCIPAL Tesfaye pearson MD [facility] CPT-11115 Level 4 Est. Patient 13:50:45 CDT Tesfaye pearson MD [facility] CPT-80692 Level 3 Est. Patient 10:16:10 CDT Tesfaye pearson MD [facility] CPT-95944 Level 3 Est. Patient 16:36:07 OIL AND GAS PRINCIPAL Kayla jameson MD [facility]-23027 Level 4 Est. Patient 16:00:14 OIL AND GAS PRINCIPAL Tesfaye pearson MD [facility] CPT-49942 Level 4 Est. Patient 11:02:24 OIL AND GAS PRINCIPAL Tesfaye pearson MD [facility] CPT-97681 Level 3 Est. Patient 20:21:43 OIL AND GAS PRINCIPAL Kayla jameson MD [facility] CPT-35086 Level 3 Est. Patient 13:27:28 OIL AND GAS PRINCIPAL Kayla jameson MD [facility] CPT-60879 Level 4 Est. Patient 15:57:17 OIL AND GAS PRINCIPAL Tesfaye pearson MD [facility] CPT-15958 Level 3 New Patient 13:25:47 CDT Tesfaye kidd MD [facility] CPT-85969 Level 3 New Patient 17:22:21 CDT J John angel MD [facility] Procedures Code Procedure Name Date Entry Date Standard Desc ription CPT-OP3329B (4274F 2P) Patient Reason Influenza immu nization not administered 13:25:19 OIL AND GAS PRINCIPAL CPT-93624 Bone Density - XRAY USE ONLY 15:21:33 CDT 2 CPT-92701 Venipuncture Draw Fee 16:12:22 CDT CPT-G0439 Subsequent Annual Wellness Exam 18:06:36 CDT CPT-G0439 Subsequent Annual Wellness Exam 22:18:11 CDT CPT-68208 Bone Density - XRAY USE ONLY 11:43:58 CDT 2 CPT-14030 Bone Density - XRAY USE ONLY 10:05:16 CDT 2 CPT-46122 Prv Med New Pt 40-64 yrs 18:19:25 CDT 2016 CPT-83362 Foot, right, comp min 3V - XRAY USE ONLY 10:38:34 CDT CPT-G0439 Subsequent Annual Wellness Exam 13:55:04 CDT CPT-G0438 Initial Annual Wellness Exam 11:23:17 CD T CPT-J2930 Solu Medrol 125 mg (Methyl Prednisolone Sodium Succinate) 17:29:12 OIL AND GAS PRINCIPAL CPT-77129 Abx/Therapy Injection 17:29:11 OIL AND GAS PRINCIPAL CPT-J2930 Solu Medrol 125 mg (Methyl Prednisolone Sodium Succinate) 12:34:38 OIL AND GAS PRINCIPAL CPT-J3420 Vitamin B12 1000mcg (Cyanocobalamin) 09:12:55 CDT CPT-J3420 Vitamin B12 1000mcg (Cyanocobalamin) 16:28:06 OIL AND GAS PRINCIPAL CPT-94438 Venipuncture Draw Fee 08:39:53 CDT CPT-J3420 Vitamin B12 1000mcg (Cyanocobalamin) 08:46:22 CDT CPT-86592 Abx/Therapy Injection 08:46:22 CDT CPT-J3420 Vitamin B12 1000mcg (Cyanocobalamin) 08:41:26 CDT CPT-70968 Abx/Therapy Injection 08:41:26 CDT CPT-J3420 Vitamin B12 1000mcg (Cyanocobalamin) 08:57:15 CDT CPT-62544 Abx/Therapy Injection 08:57:15 CDT CPT-J3420 Vitamin B12 1000mcg (Cyanocobalamin) 10:59:03 CDT CPT-96754 Abx/Therapy Injection 10:59:03 CDT CPT-J3420 Vitamin B12 1000mcg (Cyanocobalamin) 15:05:39 CDT CPT-06307 Abx/Therapy Injection 15:05:39 CDT CPT-J3420 Vitamin B12 1000mcg (Cyanocobalamin) 13:50:45 CDT CPT-J3420 Vitamin B12 1000mcg (Cyanocobalamin) 08:48:55 CDT CPT-23942 Abx/Therapy Injection 08:48:55 CDT CPT-J3420 Vitamin B12 1000mcg (Cyanocobalamin) 09:14:54 CDT CPT-81247 Abx/Therapy Injection 09:14:54 CDT CPT-J3420 Vitamin B12 1000mcg (Cyanocobalamin) 09:06:06 CDT CPT-26188 Abx/Therapy Injection 09:06:06 CDT CPT-J3420 Vitamin B12 1000mcg (Cyanocobalamin) 09:49:14 CDT CPT-19483 Abx/Therapy Injection 09:49:14 CDT CPT-J3420 Vitamin B12 1000mcg (Cyanocobalamin) 09:10:30 [employer] CPT-99016 Abx/Therapy Injection 09:10:30 [employer] CPT-J3420 Vitamin B12 1000mcg (Cyanocobalamin) 09:11:07 [employer] CPT-18467 Abx/Therapy Injection 09:11:07 [employer] CPT-J3420 Vitamin B12 1000mcg (Cyanocobalamin) 09:57:03 [employer] CPT-58734 Abx/Therapy Injection 09:57:03 [employer] CPT-J3420 Vitamin B12 1000mcg (Cyanocobalamin) 09:23:21 [employer] CPT-47975 Abx/Therapy Injection 09:23:21 [employer] CPT-47211 Urine Dip (Floor Use Only) 20:21:44 [employer] 201 02/12/11 CPT-01845 UA Dip Auto (Floor Use Only) 10:04:39 [employer] 2 CPT-41302 Urine Dip (Floor Use Only) 13:27:28 [employer] 201 02/12/01 CPT-50016 Bladder Scan 13:27:28 [employer] CPT-88222 Abd single AP View 14:30:51 [employer] CPT-OV Office Visit 10:15:43 CDT CPT-82182 Urine Dip (Floor Use Only) 17:22:21 CDT 201 02/09/02 CPT-24616 Bladder Scan 17:22:21 CDT
--- OUTSIDE RECORDS SUMMARY | 2020-05-05 11:05 | XMS REPORT | Clinical Summary ---
Author Author Talon, Jeri Wood [facility] Address Unknown Phone Unavailable Allergies, Adverse Reactions, Alerts Allergy Name Reaction Description Start Date Severity Status Pr ovider FOSAMAX Critical Active Tesfaye armenta MD PRAMIPEXOLE Critical Active Tesfaye villar MD CEFTIN Critical Active Tesfaye armenta MD CIPRO Critical Active Tesfaye armenta MD MIRTAZAPINE Bloating, edema, fatigue, muscle pain Moderate Active Tesfaye Sherman MD MIRAPEX caused dizziness and weakness Moderate Active Tesfaye hSerman MD NITROFURANTION Critical Active Tesfaye kidd MD [...] Routine general medical examination at [facility] acility Sinusitis 461.9 Resolved Tesfaye Sherman [...] MD Routine general medical examination at a [facility] acility Body Mass Index 21.0-21.9 Adult Refinement [...] bilateral 782.3 Active 201 07/07/09 León Kodi CABLE ENGINEER Edema Peripheral neuropathy 356.9 Active Tesfaye lamb [...] 201 07/05/07 Yeast infection ICD-112.9 Inactive Tesfaye almb MD Upper respiratory infection ICD-465.9 Inactive Tesfaye Sherman MD Medication List Medication Instructions Start Date Stop Date Generic Name NDC Status Provider Patient Instruction DIFLUCAN 100 MG ORAL TABLET 1 tablet by mouth daily 20 23/12/05 FLUCONAZOLE 20997291446 Active Tesfaye Sherman MD Active [facility] NIACIN FLUSH FREE 400-100 MG ORAL CAPSULE 1 daily NIACIN-INOSITOL 14123822817 No Longer Active Tesfaye Sherman MD A ctive FISH OIL 1000 MG ORAL CAPSULE DELAYED RELEASE 1 pill b y mouth daily for cholesterol OMEGA-3 FATTY ACIDS 78737579694 No Longe r Active Tesfaye Sherman MD Active UNISOM SLEEPMELTS 25 MG ORAL TABLET DISINTEGRATING 1.5 po q hs DIPHENHYDRAMINE HCL (SLEEP) 78225983457 No Longer Active Venkata Sherman MD Active PREDNISONE 20 MG ORAL TABLET 1 tab twice daily for 3 d ay, then one daily for three days PREDNISONE 01980066889 No Longer Active Tesfaye Sherman MD Active BACLOFEN 10 MG ORAL TABLET Take one tablet by mouth three times a day BACLOFEN 13048879378 No Longer Active Tesfaye Sherman MD Active LIDOCAINE 4 % EXTERNAL CREAM Apply to back prn pain LIDOCAINE 00174822668 Active Tesfaye Sherman MD Active TIZANIDINE HCL 2 MG ORAL TABLET 2 Mg in the AM and 6mg q hs 07/05 TIZANIDINE HCL 59613414379 Active Tesfaye Sherman MD Active HYDROXYZINE HCL 25 MG TABS TAKE 1 TABLET BY MOUTH AT B EDTIME NEEDED FOR SLEEP HYDROXYZINE HCL 05880106733 Active Lisa Hughes, RM A Active FLUCONAZOLE 100 MG ORAL TABLET 1 by mouth daily for yeast infect ion FLUCONAZOLE 52142242875 No Longer Active Laurence Dominguez Acti ve ZITHROMAX 250 MG ORAL TABLET 2 po today, then 1 po q days 2-5 20 21/08/28 AZITHROMYCIN 88164567793 No Longer Active Tesfaye Sherman MD Active DIFLUCAN 100 MG ORAL TABLET 1 tablet by mouth daily 20 21/08/28 FLUCONAZOLE 21635004449 No Longer Active Tesfaye Sherman MD Acti ve HYDROXYZINE HCL 25 MG ORAL TABLET 1 tab po at HS prn sleep 08/02 HYDROXYZINE HCL 81571637827 No Longer Active Tesfaye Sherman MD Active MIRAPEX 0.5 MG ORAL TABLET 1 tablet at night for restless leg. 2018 PRAMIPEXOLE DIHYDROCHLORIDE 60549475894 Active Laurence Raida Active MIRAPEX 0.25 MG ORAL TABLET 1 tablet by mouth at night for r estless leg PRAMIPEXOLE DIHYDROCHLORIDE 22312673868 No Longer Act trent Laurence Raida Active MIRAPEX 0.125 MG ORAL TABLET 1 po nightly PRAMIPEXOLE DIHYDROCHLORIDE 75894222164 No Longer Active Laurence Raida Active ROPINIROLE HCL 2 MG ORAL TABLET 1 po at hs ROPI NIROLE HCL 36757201051 No Longer Active Laurence Raida Active ROPINIROLE HCL 1 MG ORAL TABLET 1 tab po q hs ROPINIROLE HCL 20686685421 No Longer Active Laurence Raida Active ROPINIROLE HCL 0.5 MG ORAL TABLET 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 ROPINIROLE HCL 62723898718 No Longer Active MARCUS Panchal Active ROPINIROLE HCL 0.25 MG ORAL TABLET 1 TAB PO Q HS 05/31 ROPINIROLE HCL 34673309562 No Longer Active Tesfaye Sherman MD Ac tive PREDNISONE 20 MG ORAL TABLET 1 tab twice daily for 3 d ay, then one daily for three days PREDNISONE 03367624684 No Longer Active Tesfaye Sherman MD Active AMITRIPTYLINE HCL 50 MG ORAL TABLET 1 po q hs for sleep AMITRIPTYLINE HCL 39329135054 No Longer Active Tesfaye Sherman MD Active AMITRIPTYLINE HCL 10 MG ORAL TABLET 1 tablet nightly by mout h for neuropathy AMITRIPTYLINE HCL 33984749723 No Longer Active MARCUS Stapleton Active DIFLUCAN 100 MG ORAL TABLET 1 tablet by mouth daily 20 21/03/11 FLUCONAZOLE 94269213616 No Longer Active Tesfaye Sherman MD Acti ve BACTRIM DS 800-160 MG ORAL TABLET 1 tab by mouth twice daily 201 07/08/06 TRIMETHOPRIM-SULFAMETHOXAZOLE 38980426955 No Longer Active Umer Sherman MD Active CLARITIN 10 MG ORAL TABLET Take one by mouth daily LORATADINE 74818662393 Active Tesfaye Sherman MD Active SUDAFED 12 HOUR 120 MG ORAL TABLET EXTENDED RELEASE 12 HOUR 1 pill twice daily if needed for congestion PSEUDOEPHEDRINE HCL 046177853 13 No Longer Active Tesfaye Sherman MD Active FENOFIBRATE 145 MG ORAL TABLET 1 by mouth daily FENOFIBRATE 00117515631 Active Laurence Dominguez Active GABAPENTIN 300 MG ORAL CAPSULE 1 po daily GABAP ENTIN 20891032836 No Longer Active Tesfaye Sherman MD Active HYDROCHLOROTHIAZIDE 12.5 MG ORAL CAPSULE 1 pill by mough daily 2 HYDROCHLOROTHIAZIDE 39544480169 No Longer Active León Mariee APRN Active VENLAFAXINE HCL 75 MG ORAL TABLET 1 am 1/2 at noon 201 07/07/09 VENLAFAXINE HCL 40143973819 No Longer Active León Mariee APRN Act trent DIFLUCAN 100 MG ORAL TABLET 1 tablet by mouth daily 20 19/02/09 FLUCONAZOLE 67608068168 No Longer Active León Mariee APRN Active DIFLUCAN 100 MG ORAL TABLET 1 tablet by mouth daily 20 19/02/09 FLUCONAZOLE 10696719246 No Longer Active León Mariee APRN Active OXYCODONE-ACETAMINOPHEN 5-325 MG ORAL TABLET Take one tablet by mouth every 6 hours 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 Use sparingly OXYCODONE-ACETAMINOPHEN 39540072593 Active Tesfaye villar MD Active CLONAZEPAM 0.5 MG ORAL TABLET Take 1/2 qam, and 1/2 qpm CLONAZEPAM 39458292668 Active Tesfaye Sherman MD Active PRELIEF 340 (65-50) MG (CA-P) ORAL TABLET CALCIUM GLYCEROPHOSPHATE 02386271747 No Longer Active Tesfaye Sherman MD Active SUDAFED 24 HOUR 240 MG ORAL TABLET EXTENDED RELEASE 24 HOUR 1 tab po daily PSEUDOEPHEDRINE HCL 13189481308 No Longer Active Raul Sherman MD Active RED YEAST RICE 600 MG ORAL CAPSULE 1 pill by mouth daily RED YEAST RICE EXTRACT 64200387889 No Longer Active Tesfaye Sherman MD Active REPHRESH PRO-B ORAL CAPSULE 1 tablet daily LACT OBACILLUS 69123034001 No Longer Active Tesfaye Sherman MD Active ABILIFY 2 MG ORAL TABLET 1 by mouth daily. MARIA ELENA PIPRAZOLE 33100629350 Active Tesfaye Sherman MD Active CYMBALTA 60 MG ORAL CAPSULE DELAYED RELEASE PARTICLES 1 cap by mouth daily for pain DULOXETINE HCL 06109880590 Active MARCUS Lindsay Active DIFLUCAN 100 MG ORAL TABLET 1 tablet by mouth daily 20/06/06 FLUCONAZOLE 98743105557 No Longer Active Tesfaye Sherman MD Acti ve PREDNISONE 20 MG ORAL TABLET 1 tablet by mouth twice d aily for 3 days, then 1 tablet daily for 3 days PREDNISONE 83705137653 No L onger Active Tesfaye Sherman MD Active BACTRIM DS 800-160 MG ORAL TABLET 1 tab by mouth twice daily 201 06/09/02 TRIMETHOPRIM-SULFAMETHOXAZOLE 21846755826 No Longer Active Fer Dominguez Active DIFLUCAN 100 MG ORAL TABLET 1 tablet by mouth daily 20 20/05/01 FLUCONAZOLE 85576248404 No Longer Active Tesfaye Sherman MD Acti ve ZITHROMAX 250 MG ORAL TABLET 2 po today, then 1 po q days 2-5 20 20/04/28 AZITHROMYCIN 49454242825 No Longer Active Tesfaye Sherman MD Active MECLIZINE HCL 25 MG ORAL TABLET one tab po qday prn dizziness 20 17/09/06 MECLIZINE HCL 73648362581 No Longer Active Tesfaye Sherman MD Active PROAIR HFA 108 (90 BASE) MCG/ACT INHALATION AEROSOL SO LUTION 1 puff every 6 hours as needed ALBUTEROL SULFATE 16218882269 No Long er Active Tesfaye Sherman MD Active PREDNISONE 20 MG ORAL TABLET 1 tab twice daily for 3 d ay, then one daily for three days PREDNISONE 89430327419 No Longer Active Tesfaye Sherman MD Active MECLIZINE HCL 25 MG ORAL TABLET one 4 times a day as needed for dizziness MECLIZINE HCL 06084399765 Active Tesfaye Sherman MD Active AMOXICILLIN 500 MG ORAL CAPSULE 1 cap by mouth three times a day AMOXICILLIN 36256579300 No Longer Active Laurence Dominguez Acti ve DIFLUCAN 100 MG ORAL TABLET 1 tablet by mouth daily 20 19/08/26 FLUCONAZOLE 55778901492 No Longer Active Tesfaye Sherman MD Acti ve BACTRIM DS 800-160 MG ORAL TABLET 1 tab by mouth twice daily 201 05/10/28 TRIMETHOPRIM-SULFAMETHOXAZOLE 85733000115 No Longer Active Fer Dominguez Active FOSAMAX 70 MG ORAL TABLET 1 po qweek. Take 30min prio r to first food/drink. Avoid lying down x 1 hour. ALENDRONATE SODIUM 79499721 144 No Longer Active Laurence Dominguez Active CYMBALTA 60 MG ORAL CAPSULE DELAYED RELEASE PARTICLES Take 1 tablet by mouth daily DULOXETINE HCL 39292819656 No Longer Active Edith Burch MD Active CYMBALTA 30 MG ORAL CAPSULE DELAYED RELEASE PARTICLES 1 cap by mouth daily with 60mg DULOXETINE HCL 05220112846 No Longer Active Jordan Burch MD Active DIFLUCAN 100 MG ORAL TABLET 1 tablet by mouth daily 19/03/05 FLUCONAZOLE 91933963885 No Longer Active Tesfaye Sherman MD Acti ve BACTRIM DS 800-160 MG ORAL TABLET 1 tab by mouth twice daily 201 05/06/28 TRIMETHOPRIM-SULFAMETHOXAZOLE 24902345899 No Longer Active Umer Sherman MD Active BACTRIM DS 800-160 MG ORAL TABLET 1 tab by mouth twice daily 201 05/04/15 TRIMETHOPRIM-SULFAMETHOXAZOLE 36196894297 No Longer Active Umer Sherman MD Active DIFLUCAN 150 MG ORAL TABLET 1 tablet by mouth daily 20 18/09/20 FLUCONAZOLE 38220688788 No Longer Active Tesfaye Sherman MD Acti ve BACTRIM DS 800-160 MG ORAL TABLET 1 tab by mouth twice daily 201 04/13/17 TRIMETHOPRIM-SULFAMETHOXAZOLE 49081095050 No Longer Active Umer Sherman MD Active CEFTIN 250 MG ORAL TABLET 1 tablet twice daily x 7 days CEFUROXIME AXETIL 78837727249 No Longer Active Tesfaye Sherman MD Active DIFLUCAN 100 MG ORAL TABLET 1 tablet by mouth every other da y for 2 doses FLUCONAZOLE 29035088889 No Longer Active Tesfaye barron MD Active DIFLUCAN 100 MG ORAL TABLET 1 tablet by mouth daily X 3 DAYS 201 04/09/01 FLUCONAZOLE 94630192307 No Longer Active Rj Ravi MIRTAZAPINE 15 MG ORAL TABLET 1/2 tab by mouth at bedtime. 03/13 MIRTAZAPINE 67070309589 No Longer Active Tesfaye Sherman MD Active BACTRIM DS 800-160 MG ORAL TABLET 1 tab by mouth twice daily 201 04/09/01 TRIMETHOPRIM-SULFAMETHOXAZOLE 81473769985 No Longer Active Umer Sherman MD Active PRAMIPEXOLE DIHYDROCHLORIDE 0.125 MG ORAL TABLET take 1 tablet po qhs for restless leg syndrome. PRAMIPEXOLE DIHYDROCHLORI DE 75644453656 No Longer Active Tesfaye Sherman MD Active MAGNESIUM 400 MG ORAL TABLET 1 tab po daily MAGNE SIUM 79571099475 Active Chelsea Theresa CABLE ENGINEER Active CETIRIZINE HCL 5 MG ORAL TABLET Take 1 tablet by mouth daily CETIRIZINE HCL 68159024557 No Longer Active Chelsea Cardenas CABLE ENGINEER Activ e TRIMETHOPRIM 100 MG ORAL TABLET 1/2 qd TRIM ETHOPRIM 33493660416 No Longer Active Chelsea Cardenas APRN Active BACTRIM DS 800-160 MG ORAL TABLET 1 tab by mouth twice daily 201 04/04/11 TRIMETHOPRIM-SULFAMETHOXAZOLE 26447709630 No Longer Active Umer Sherman MD Active BACTRIM DS 800-160 MG ORAL TABLET 1 tab by mouth twice daily X 10 DAYS TRIMETHOPRIM-SULFAMETHOXAZOLE 61104751951 No Longer Active Tesfaye Sherman MD Active AMOXICILLIN 500 MG ORAL CAPSULE 1 cap by mouth three times a day AMOXICILLIN 19399103804 No Longer Active MARCUS Maravilla A ctive B-12 1000 MCG ORAL LOZENGE 1 tab po daily CYANO COBALAMIN 45962678715 Active Tesfaye Sherman MD Active VITAMIN D3 2000 UNIT ORAL TABLET 1 daily, for vitamin D deficien cy CHOLECALCIFEROL 96262625629 No Longer Active Tesfaye Sherman MD Active ZITHROMAX 250 MG ORAL TABLET 2 po today, then 1 po q days 2-5 20 15/02/10 AZITHROMYCIN 44906516760 No Longer Active Tesfaye Sherman MD Active BACTRIM DS 800-160 MG ORAL TABLET 1 tab by mouth twice daily 201 5/01/23 TRIMETHOPRIM-SULFAMETHOXAZOLE 41043158229 No Longer Active Umer Sherman MD Active DIFLUCAN 150 MG ORAL TABLET 1 qd FLUCONAZOL E 26021665657 No Longer Active Kayla Cooper MD Active FLUTICASONE PROPIONATE 50 MCG/ACT NASAL SUSPENSION 1 spray each nostril twice daily FLUTICASONE PROPIONATE 88758734340 Active Umer Sherman MD Active LOVASTATIN 20 MG ORAL TABLET Take 1 tablet by mouth daily LOVASTATIN 10542718922 No Longer Active Tesfaye Sherman MD Acti ve MELOXICAM 7.5 MG ORAL TABLET 1 tablet by mouth daily 2 MELOXICAM 01974955383 No Longer Active Tesfaye Sherman MD Acti ve GABAPENTIN 300 MG ORAL CAPSULE Take two tablets by mouth every e vening GABAPENTIN 17946374229 No Longer Active Edith Burch MD A ctive GABAPENTIN 300 MG ORAL CAPSULE Take two tablets by mouth every e vening GABAPENTIN 300 MG ORAL CAPSULE 132041 GABAPENTIN I nactive MELOXICAM 7.5 MG ORAL TABLET 1 tablet by mouth daily 2 MELOXICAM 7.5 MG ORAL TABLET 527078 MELOXICAM Inactive LOVASTATIN 20 MG ORAL TABLET Take 1 tablet by mouth daily LOVASTATIN 20 MG ORAL TABLET 821392 LOVASTATIN Inactive DIFLUCAN 150 MG ORAL TABLET 1 qd DIFLUCAN 150 MG ORAL TABLET 327520 FLUCONAZOLE Inactive VITAMIN D3 2000 UNIT ORAL TABLET 1 daily, for vitamin D deficien cy VITAMIN D3 2000 UNIT ORAL TABLET CHOLECALCIFEROL Inactive AMOXICILLIN 500 MG ORAL CAPSULE 1 cap by mouth three times a day AMOXICILLIN 500 MG ORAL CAPSULE 964508 AMOXICILLIN Inactive BACTRIM DS 800-160 MG ORAL TABLET 1 tab by mouth twice daily X 10 DAYS BACTRIM DS 800-160 MG ORAL TABLET 240547 TRIMETHOPRIM-SULFAMETHOXAZOLE Inactive TRIMETHOPRIM 100 MG ORAL TABLET 1/2 qd 7 TRIMETHOPRIM 100 MG ORAL TABLET 059521 TRIMETHOPRIM Inactive CETIRIZINE HCL 5 MG ORAL TABLET Take 1 tablet by mouth daily CETIRIZINE HCL 5 MG ORAL TABLET 5356874 CETIRIZINE HCL Inactive PRAMIPEXOLE DIHYDROCHLORIDE 0.125 MG ORAL TABLET take 1 tablet po qhs for restless leg syndrome. PRAMIPEXOLE DIHYD ROCHLORIDE 0.125 MG ORAL TABLET 631008 PRAMIPEXOLE DIHYDROCHLORIDE Inactive MIRTAZAPINE 15 MG ORAL TABLET 1/2 tab by mouth at bedtime. 03/13 MIRTAZAPINE 15 MG ORAL TABLET 845448 MIRTAZAPINE In active DIFLUCAN 100 MG ORAL TABLET 1 tablet by mouth daily X 3 DAYS 201 04/09/01 DIFLUCAN 100 MG ORAL TABLET 337179 FLUCONAZOLE Inac tive DIFLUCAN 100 MG ORAL TABLET 1 tablet by mouth every other da y for 2 doses DIFLUCAN 100 MG ORAL TABLET 511606 FLUCONAZOLE Inactive CEFTIN 250 MG ORAL TABLET 1 tablet twice daily x 7 days CEFTIN 250 MG ORAL TABLET CEFUROXIME AXETIL Inactive CYMBALTA 30 MG ORAL CAPSULE DELAYED RELEASE PARTICLES 1 cap by mouth daily with 60mg CYMBALTA 30 MG ORAL CAPSULE DELAYED RELEASE PARTICLES 985979 DULOXETINE HCL Inactive CYMBALTA 60 MG ORAL CAPSULE DELAYED RELEASE PARTICLES Take 1 tablet by mouth daily CYMBALTA 60 MG ORAL CAPSULE DELAYED RELEA SE PARTICLES 497418 DULOXETINE HCL Inactive FOSAMAX 70 MG ORAL TABLET 1 po qweek. Take 30min prio r to first food/drink. Avoid lying down x 1 hour. FOSAMAX 70 MG ORAL TA BLET 581477 ALENDRONATE SODIUM Inactive DIFLUCAN 100 MG ORAL TABLET 1 tablet by mouth daily 19/08/26 DIFLUCAN 100 MG ORAL TABLET 245053 FLUCONAZOLE Inactive PREDNISONE 20 MG ORAL TABLET 1 tab twice daily for 3 d ay, then one daily for three days PREDNISONE 20 MG ORAL TABLET 816726 PREDNIS ONE Inactive PROAIR HFA 108 (90 BASE) MCG/ACT INHALATION AEROSOL SO LUTION 1 puff every 6 hours as needed PROAIR HFA 108 (90 B ASE) MCG/ACT INHALATION AEROSOL SOLUTION ALBUTEROL SULFATE Inactive MECLIZINE HCL 25 MG ORAL TABLET one tab po qday prn dizziness 20 17/09/06 MECLIZINE HCL 25 MG ORAL TABLET 431142 MECLIZINE HCL Inactive PREDNISONE 20 MG ORAL TABLET 1 tablet by mouth twice d aily for 3 days, then 1 tablet daily for 3 days PREDNISONE 20 MG ORAL TA BLET 080118 PREDNISONE Inactive DIFLUCAN 100 MG ORAL TABLET 1 tablet by mouth daily 20/06/06 DIFLUCAN 100 MG ORAL TABLET 19760711 FLUCONAZOLE Inactive REPHRESH PRO-B ORAL CAPSULE 1 tablet daily REPHRESH PRO-B ORAL CAPSULE LACTOBACILLUS Inactive RED YEAST RICE 600 MG ORAL CAPSULE 1 pill by mouth daily RED YEAST RICE 600 MG ORAL CAPSULE 951337 RED YEAST RICE EXTRACT In active SUDAFED [...] 20 19/02/09 DIFLUCAN 100 MG ORAL TABLET 709818 FLUCONAZOLE Inactive VENLAFAXINE HCL 75 MG ORAL TABLET 1 am 1/2 at noon 201 07/07/09 VENLAFAXINE HCL 75 MG ORAL TABLET 550071 VENLAFAXINE HCL Inacti ve GABAPENTIN 300 MG ORAL CAPSULE 1 po daily GABAPENTIN 300 MG ORAL CAPSULE 833637 GABAPENTIN Inactive SUDAFED 12 HOUR 120 MG ORAL TABLET EXTENDED RELEASE 12 HOUR 1 pill twice daily if needed for congestion SUDAFED 12 HOUR 120 MG ORAL TABLET EXTENDED RELEASE 12 HOUR PSEUDOEPHEDRINE HCL Inactive AMITRIPTYLINE HCL 10 MG ORAL TABLET 1 tablet nightly by mout h for neuropathy AMITRIPTYLINE HCL 10 MG ORAL TABLET 898990 AMITRIPTYLINE HCL Inactive AMITRIPTYLINE HCL 50 MG ORAL TABLET 1 po q hs for sleep AMITRIPTYLINE HCL 50 MG ORAL TABLET 840010 AMITRIPTYLINE HCL Inac tive PREDNISONE 20 MG ORAL TABLET 1 tab twice daily for 3 d ay, then one daily for three days PREDNISONE 20 MG ORAL TABLET 998773 PREDNIS ONE Inactive ROPINIROLE HCL 0.25 MG ORAL TABLET 1 TAB PO Q HS 05/31 ROPINIROLE HCL 0.25 MG ORAL TABLET 982569 ROPINIROLE HCL Inact trent ROPINIROLE HCL 0.5 MG ORAL TABLET 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 ROPINIROLE HCL 0.5 MG ORAL TABLET 023875 ROPINIR OLE HCL Inactive ROPINIROLE HCL 1 MG ORAL TABLET 1 tab po q hs ROPINIROLE HCL 1 MG ORAL TABLET 076571 ROPINIROLE HCL Inactive ROPINIROLE HCL 2 MG ORAL TABLET 1 po at hs 7 ROPINIROLE HCL 2 MG ORAL TABLET 936481 ROPINIROLE HCL Inactive MIRAPEX 0.125 MG ORAL TABLET 1 po nightly MIRAPEX 0.125 MG ORAL TABLET 609146 PRAMIPEXOLE DIHYDROCHLORIDE Inactive MIRAPEX 0.25 MG ORAL TABLET 1 tablet by mouth at night for r estless leg MIRAPEX 0.25 MG ORAL TABLET 782777 PRAM IPEXOLE DIHYDROCHLORIDE Inactive HYDROXYZINE HCL 25 MG ORAL TABLET 1 tab po at HS prn sleep 08/02 HYDROXYZINE HCL 25 MG ORAL TABLET 137694 HYDROXYZINE HC L Inactive DIFLUCAN 100 MG [...] three days PREDNISONE 20 MG ORAL TABLET 516443 PREDNIS ONE Inactive UNISOM SLEEPMELTS 25 MG [...] 20 15/02/10 ZITHROMAX 250 MG ORAL TABLET 438865 AZITHROMYCIN Sledge ctive BACTRIM DS 800-160 MG ORAL TABLET [...] a day AMOXICILLIN 500 MG ORAL CAPSULE 730579 AMOXICILLIN Inactive ZITHROMAX 250 MG ORAL TABLET 2 po today, then 1 po q days 2-5 20 20/04/28 ZITHROMAX 250 MG ORAL TABLET 222226 AZITHROMYCIN Mayela ctive DIFLUCAN 100 MG ORAL TABLET 1 tablet by mouth daily 20 20/05/01 DIFLUCAN 100 MG ORAL TABLET 518156 FLUCONAZOLE Inactive BACTRIM DS 800-160 MG ORAL TABLET 1 tab by mouth twice daily 201 06/09/02 BACTRIM DS 800-160 MG ORAL TABLET 19830105 TRIMETHOPRIM-SULFAMETHOXAZOLE Inactive HYDROCHLOROTHIAZIDE 12.5 MG ORAL CAPSULE 1 pill by mough daily 2 HYDROCHLOROTHIAZIDE 12.5 MG ORAL CAPSULE [facility] LOROTHIAZIDE Inactive BACTRIM DS 800-160 MG ORAL TABLET 1 tab by mouth twice daily 201 07/08/06 BACTRIM DS 800-160 MG ORAL TABLET 19830105 TRIMETHOPRIM-SULFAMETHOXAZOLE Inactive DIFLUCAN 100 MG ORAL TABLET 1 tablet by mouth daily 20 21/03/11 DIFLUCAN 100 MG ORAL TABLET 077043 FLUCONAZOLE Inactive ZITHROMAX 250 MG ORAL TABLET 2 po today, then 1 po q days 2-5 20 21/08/28 ZITHROMAX 250 MG ORAL TABLET 310179 AZITHROMYCIN Sledge ctive FLUCONAZOLE 100 MG ORAL TABLET 1 by mouth daily for yeast infect ion FLUCONAZOLE 100 MG ORAL TABLET 225886 FLUCONAZOLE I nactive Advance Directives Directive Description Start Date PERMISSION TO SHARE DISCUSSED WITH PATIENT -- NO DECISION MADE DISCUSED WITH PATIENT -- FULL CODE LIVING WILL ON FILE DURABLE POWER OF STROBOSCOPE OPERATOR FOR HEALTHCARE Vital Signs Date Name [...] Magnesium - Chemistry cholesterol, serum 196 mg/dL 399-384 7916/07/30 triglyceride, serum, fasting 86 mg/dL 30-200 HDL cholesterol, serum 41 mg/dL 32-60 LDL cholesterol, serum 138 mg/dL 0-130 sodium, serum 140 mmol/L 257-845 4037/07/30 carbon dioxide, venous blood 28.6 mmol/L 21.0-32 [...] 5.0-8.5 Encounters Code Encounter Date Provider Facility CPT-30601 [id number] Vst-Est Level IV 13:49:08 ELECTRICAL TECHNOLOGY INSTRUCTOR Mendy Stovallord [facility] CPT-75500 [id number] Vst-Est Level IV 11:39:[address] Tesfaye Sherman MD [facility] CPT-00027 [id number] Vst-Est Level IV 14:08:03 C BRIDGET Sherman MD [facility] CPT-82160 Level 3 Est. Patient 18:06:36 CDT Tesfaye pearson MD [facility] CPT-87486 [id number] Vst-Est Level IV 17:09:34 C BRIDGET Sherman MD [facility] CPT-74882 Level 3 Est. Patient 17:27:08 CDT León hernandez APRN [facility] CPT-04030 [id number] Vst-Est Level IV 14:00:[address] Tesfaye Sherman MD [facility] CPT-76901 [id number] Vst-Est Level IV 19:27:[address] Tesfaye Sherman MD [facility] CPT-72104 [id number] Vst-Est Level IV 10:41:41 C BRIDGET Sherman MD [facility] CPT-31859 [id number] Vst-Est Level III 09:40:56 CDT Tesfaye Sherman MD [facility] CPT-00956 Level 4 Est. Patient 22:18:12 CDT Tesfaye pearson MD [facility] CPT-76970 Level 4 Est. Patient 14:44:33 ELECTRICAL TECHNOLOGY INSTRUCTOR Tesfaye pearson MD [facility] CPT-38115 Level 4 Est. Patient 13:55:29 ELECTRICAL TECHNOLOGY INSTRUCTOR Tesfaye pearson MD [facility] CPT-57823 Level 4 Est. Patient 17:07:34 ELECTRICAL TECHNOLOGY INSTRUCTOR Tesfaye pearson MD [facility] CPT-69000 Level 4 Est. Patient 13:56:54 CDT Tesfaye pearson MD [facility]-04320 Level 4 Est. Patient 13:24:25 CDT Chelsea sanz APRN [facility] CPT-77876 Level 4 Est. Patient 09:14:56 CDT Tesfaye pearson MD [facility]-31455 Level 4 Est. Patient 18:40:25 ELECTRICAL TECHNOLOGY INSTRUCTOR Tesfaye pearson MD [facility]-35944 Level 4 Est. Patient 18:13:07 ELECTRICAL TECHNOLOGY INSTRUCTOR Tesfaye pearson MD [facility]-45252 Level 3 Est. Patient 10:46:32 CDT Rj cotto DO [facility] CPT-42283 Level 4 Est. Patient 20:19:25 CDT Tesfaye pearson MD [facility]-87902 Level 3 Est. Patient 09:07:31 CDT Tesfaye pearson MD [facility]-27296 Level 4 Est. Patient 13:12:56 CDT Tesfaye pearson MD [facility]-38532 Level 4 Est. Patient 21:24:55 ELECTRICAL TECHNOLOGY INSTRUCTOR Tesfaye pearson MD [facility]-77498 Level 3 Est. Patient 13:45:04 ELECTRICAL TECHNOLOGY INSTRUCTOR Tesfaye pearson MD [facility] CPT-38222 Level 4 Est. Patient 13:50:45 CDT Tesfaye pearson MD [facility] CPT-12134 Level 3 Est. Patient 10:16:10 CDT Tesfaye pearson MD [facility] CPT-98834 Level 3 Est. Patient 16:36:07 ELECTRICAL TECHNOLOGY INSTRUCTOR Kayla jameson MD [facility]-60716 Level 4 Est. Patient 16:00:14 ELECTRICAL TECHNOLOGY INSTRUCTOR Tesfaye pearson MD [facility] CPT-31828 Level 4 Est. Patient 11:02:24 ELECTRICAL TECHNOLOGY INSTRUCTOR Tesfaye pearson MD [facility] CPT-24893 Level 3 Est. Patient 20:21:43 ELECTRICAL TECHNOLOGY INSTRUCTOR Kayla jameson MD [facility] CPT-68180 Level 3 Est. Patient 13:27:28 ELECTRICAL TECHNOLOGY INSTRUCTOR Kayla jameson MD [facility] CPT-34096 Level 4 Est. Patient 15:57:17 ELECTRICAL TECHNOLOGY INSTRUCTOR Tesfaye pearson MD [facility] CPT-16085 Level 3 New Patient 13:25:47 CDT Tesfaye kidd MD [facility] CPT-41420 Level 3 New Patient 17:22:21 CDT J John angel MD [facility] Procedures Code Procedure Name Date Entry Date Standard Desc ription [id number] (4274F 2P) Patient Reason Influenza immu nization not administered 13:25:19 ELECTRICAL TECHNOLOGY INSTRUCTOR CPT-02175 Bone Density - XRAY USE ONLY 15:21:33 CDT 2 CPT-33677 Venipuncture Draw Fee 16:12:22 CDT CPT-G0439 Subsequent Annual Wellness Exam 18:06:36 CDT CPT-G0439 Subsequent Annual Wellness Exam 22:18:11 CDT CPT-04434 Bone Density - XRAY USE ONLY 11:43:58 CDT 2 CPT-32440 Bone Density - XRAY USE ONLY 10:05:16 CDT 2 CPT-51295 Prv Med New Pt 40-64 yrs 18:19:25 CDT 2016 CPT-87646 Foot, right, comp min 3V - XRAY USE ONLY 10:38:34 CDT CPT-G0439 Subsequent Annual Wellness Exam 13:55:04 CDT CPT-G0438 Initial Annual Wellness Exam 11:23:17 CD T CPT-J2930 Solu Medrol 125 mg (Methyl Prednisolone Sodium Succinate) 17:29:12 ELECTRICAL TECHNOLOGY INSTRUCTOR CPT-47308 Abx/Therapy Injection 17:29:11 ELECTRICAL TECHNOLOGY INSTRUCTOR CPT-J2930 Solu Medrol 125 mg (Methyl Prednisolone Sodium Succinate) 12:34:38 ELECTRICAL TECHNOLOGY INSTRUCTOR CPT-J3420 Vitamin B12 1000mcg (Cyanocobalamin) 09:12:55 CDT CPT-J3420 Vitamin B12 1000mcg (Cyanocobalamin) 16:28:06 ELECTRICAL TECHNOLOGY INSTRUCTOR CPT-32377 Venipuncture Draw Fee 08:39:53 CDT CPT-J3420 Vitamin B12 1000mcg (Cyanocobalamin) 08:46:22 CDT CPT-16732 Abx/Therapy Injection 08:46:22 CDT CPT-J3420 Vitamin B12 1000mcg (Cyanocobalamin) 08:41:26 CDT CPT-04355 Abx/Therapy Injection 08:41:26 CDT CPT-J3420 Vitamin B12 1000mcg (Cyanocobalamin) 08:57:15 CDT CPT-16071 Abx/Therapy Injection 08:57:15 CDT CPT-J3420 Vitamin B12 1000mcg (Cyanocobalamin) 10:59:03 CDT CPT-97428 Abx/Therapy Injection 10:59:03 CDT CPT-J3420 Vitamin B12 1000mcg (Cyanocobalamin) 15:05:39 CDT CPT-71905 Abx/Therapy Injection 15:05:39 CDT CPT-J3420 Vitamin B12 1000mcg (Cyanocobalamin) 13:50:45 CDT CPT-J3420 Vitamin B12 1000mcg (Cyanocobalamin) 08:48:55 CDT CPT-78412 Abx/Therapy Injection 08:48:55 CDT CPT-J3420 Vitamin B12 1000mcg (Cyanocobalamin) 09:14:54 CDT CPT-04506 Abx/Therapy Injection 09:14:54 CDT CPT-J3420 Vitamin B12 1000mcg (Cyanocobalamin) 09:06:06 CDT CPT-79194 Abx/Therapy Injection 09:06:06 CDT CPT-J3420 Vitamin B12 1000mcg (Cyanocobalamin) 09:49:14 CDT CPT-81246 Abx/Therapy Injection 09:49:14 CDT CPT-J3420 Vitamin B12 1000mcg (Cyanocobalamin) 09:10:30 ELECTRICAL TECHNOLOGY INSTRUCTOR CPT-14734 Abx/Therapy Injection 09:10:30 ELECTRICAL TECHNOLOGY INSTRUCTOR CPT-J3420 Vitamin B12 1000mcg (Cyanocobalamin) 09:11:07 ELECTRICAL TECHNOLOGY INSTRUCTOR CPT-37714 Abx/Therapy Injection 09:11:07 ELECTRICAL TECHNOLOGY INSTRUCTOR CPT-J3420 Vitamin B12 1000mcg (Cyanocobalamin) 09:57:03 ELECTRICAL TECHNOLOGY INSTRUCTOR CPT-32788 Abx/Therapy Injection 09:57:03 ELECTRICAL TECHNOLOGY INSTRUCTOR CPT-J3420 Vitamin B12 1000mcg (Cyanocobalamin) 09:23:21 ELECTRICAL TECHNOLOGY INSTRUCTOR CPT-33666 Abx/Therapy Injection 09:23:21 ELECTRICAL TECHNOLOGY INSTRUCTOR CPT-79047 Urine Dip (Floor Use Only) 20:21:44 ELECTRICAL TECHNOLOGY INSTRUCTOR 201 02/12/11 CPT-91286 UA Dip Auto (Floor Use Only) 10:04:39 ELECTRICAL TECHNOLOGY INSTRUCTOR 2 CPT-45293 Urine Dip (Floor Use Only) 13:27:28 ELECTRICAL TECHNOLOGY INSTRUCTOR 201 02/12/01 CPT-78507 Bladder Scan 13:27:28 ELECTRICAL TECHNOLOGY INSTRUCTOR CPT-32460 Abd single AP View 14:30:51 ELECTRICAL TECHNOLOGY INSTRUCTOR CPT-OV Office Visit 10:15:43 CDT CPT-69170 Urine Dip (Floor Use Only) 17:22:21 CDT 201 02/09/02 CPT-42928 Bladder Scan 17:22:21 CDT
--- OUTSIDE RECORDS SUMMARY | 2020-05-05 11:06 | XMS REPORT | Clinical Summary ---
Author Author Talon, Jeri Wood Organization [employer] Address Unknown Phone Unavailable Allergies, Adverse Reactions, [...] MD Routine general medical examination at [facility] ac[facility] Sinusitis 461.9 Resolved Tesfaye [...] of unspecified site Osteopenia 733.90 Active Tesfaye Shreman MD Disorder of bone and cartilage, unspecified Preventive health care V70.0 Resolved Tesfaye Sherman MD Routine [facility] medical [facility] [facility] Body Mass Index 21.0-21.9 Adult Refinement 2017 Tesfaye Sherman MD Body Mass Index between 19-24, adult BMI 22-22.9 Refinement Tesfaye Sherman MD Body Mass Index between 19-24, adult BMI 23-23.9 Refinement León Mariee APRN Body Mass Index between 19-24, adult BMI 22-22.9 Refinement Tefsaye Sherman MD Body Mass Index between 19-24, [...] Tesfaye Sherman MD Dysuria 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 V58.6 Active Tesfaye Sherman MD Long-term (current) drug use Yeast infection 112.9 Inactive Tesfaye Sherman MD Candidiasis of unspecified site Upper respiratory infection 465.9 Inactive Tesfaye Sherman MD Acute upper respiratory infections of un specified site Lower extremity edema, bilateral 782.3 Active 201 07/07/09 León Kodi PRACTICE SPECIALIST Edema Peripheral neuropathy 356.9 Active Tesfaye lamb [...] tablet by mouth daily 20 23/12/05 FLUCONAZOLE 88831537964 Active Tesfaye Sherman MD Active [facility] NIACIN FLUSH FREE 400-100 MG ORAL CAPSULE 1 daily NIACIN-INOSITOL 19919063020 No Longer Active Tesfaye Sherman MD A ctive FISH OIL 1000 MG ORAL CAPSULE DELAYED RELEASE 1 pill b y mouth daily for cholesterol OMEGA-3 FATTY ACIDS 39117720869 No Longe r Active Tesfaye Sherman MD Active UNISOM SLEEPMELTS 25 MG ORAL TABLET DISINTEGRATING 1.5 po q hs DIPHENHYDRAMINE HCL (SLEEP) 74759119466 No Longer Active Venkata Sherman MD Active PREDNISONE 20 MG ORAL TABLET 1 tab twice daily for 3 d ay, then one daily for three days PREDNISONE 90857291144 No Longer Active Tesfaye Sherman MD Active BACLOFEN 10 MG ORAL TABLET Take one tablet by mouth three times a day BACLOFEN 93346762945 No Longer Active Tesfaye Sherman MD Active LIDOCAINE 4 % EXTERNAL CREAM Apply to back prn pain LIDOCAINE 59107133633 Active Tesfaye Sherman MD Active TIZANIDINE HCL 2 MG ORAL TABLET 2 Mg in the AM and 6mg q hs 07/05 TIZANIDINE HCL 10322209785 Active Tesfaye Sherman MD Active HYDROXYZINE HCL 25 MG TABS TAKE 1 TABLET BY MOUTH AT B EDTIME NEEDED FOR SLEEP HYDROXYZINE HCL 14722840767 Active Lisa Hughes, RM A Active FLUCONAZOLE 100 MG ORAL TABLET 1 by mouth daily for yeast infect ion FLUCONAZOLE 35041374994 No Longer Active Laurence Dominguez Acti ve ZITHROMAX 250 MG ORAL TABLET 2 po today, then 1 po q days 2-5 20 21/08/28 AZITHROMYCIN 44633990452 No Longer Active Tesfaye Sherman MD Active DIFLUCAN 100 MG ORAL TABLET 1 tablet by mouth daily 20 21/08/28 FLUCONAZOLE 10988425651 No Longer Active Tesfaye Sherman MD Acti ve HYDROXYZINE HCL 25 MG ORAL TABLET 1 tab po at HS prn sleep 08/02 HYDROXYZINE HCL 73158267237 No Longer Active Tesfaye Sherman MD Active MIRAPEX 0.5 MG ORAL TABLET 1 tablet at night for restless leg. 2018 PRAMIPEXOLE DIHYDROCHLORIDE 68033882973 Active Laurence Raida Active MIRAPEX 0.25 MG ORAL TABLET 1 tablet by mouth at night for r estless leg PRAMIPEXOLE DIHYDROCHLORIDE 66625400380 No Longer Act trent Laurence Raida Active MIRAPEX 0.125 MG ORAL TABLET 1 po nightly PRAMIPEXOLE DIHYDROCHLORIDE 58430722035 No Longer Active Laurence Raida Active ROPINIROLE HCL 2 MG ORAL TABLET 1 po at hs ROPI NIROLE HCL 77926884110 No Longer Active Laurence Raida Active ROPINIROLE HCL 1 MG ORAL TABLET 1 tab po q hs ROPINIROLE HCL 51160861094 No Longer Active Laurence Raida Active ROPINIROLE HCL 0.5 MG ORAL TABLET 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 ROPINIROLE HCL 81215754900 No Longer Active MARCUS Panchal Active ROPINIROLE HCL 0.25 MG ORAL TABLET 1 TAB PO Q HS 05/31 ROPINIROLE HCL 44659891833 No Longer Active Tesfaye Sherman MD Ac tive PREDNISONE 20 MG ORAL TABLET 1 tab twice daily for 3 d ay, then one daily for three days PREDNISONE 97555359132 No Longer Active Tesfaye Sherman MD Active AMITRIPTYLINE HCL 50 MG ORAL TABLET 1 po q hs for sleep AMITRIPTYLINE HCL 05080252083 No Longer Active Tesfaye Sherman MD Active AMITRIPTYLINE HCL 10 MG ORAL TABLET 1 tablet nightly by mout h for neuropathy AMITRIPTYLINE HCL 25105761621 No Longer Active MARCUS Stapleton Active DIFLUCAN 100 MG ORAL TABLET 1 tablet by mouth daily 20 21/03/11 FLUCONAZOLE 45937058547 No Longer Active Tesfaye Sherman MD Acti ve BACTRIM DS 800-160 MG ORAL TABLET 1 tab by mouth twice daily 201 07/08/06 TRIMETHOPRIM-SULFAMETHOXAZOLE 32218780924 No Longer Active Umer Sherman MD Active CLARITIN 10 MG ORAL TABLET Take one by mouth daily LORATADINE 90078440148 Active Tesfaye Sherman MD Active SUDAFED 12 HOUR 120 MG ORAL TABLET EXTENDED RELEASE 12 HOUR 1 pill twice daily if needed for congestion PSEUDOEPHEDRINE HCL 043182313 13 No Longer Active Tesfaye Sherman MD Active FENOFIBRATE 145 MG ORAL TABLET 1 by mouth daily FENOFIBRATE 56159825140 Active Laurence Dominguez Active GABAPENTIN 300 MG ORAL CAPSULE 1 po daily GABAP ENTIN 52006088146 No Longer Active Tesfaye Sherman MD Active HYDROCHLOROTHIAZIDE 12.5 MG ORAL CAPSULE 1 pill by mough daily 2 HYDROCHLOROTHIAZIDE 39763490822 No Longer Active León Mariee APRN Active VENLAFAXINE HCL 75 MG ORAL TABLET 1 am 1/2 at noon 201 07/07/09 VENLAFAXINE HCL 45683594699 No Longer Active León Mariee APRN Act trent DIFLUCAN 100 MG ORAL TABLET 1 tablet by mouth daily 20 19/02/09 FLUCONAZOLE 62359740330 No Longer Active León Mariee APRN Active DIFLUCAN 100 MG ORAL TABLET 1 tablet by mouth daily 20 19/02/09 FLUCONAZOLE 93798617376 No Longer Active León Mariee APRN Active OXYCODONE-ACETAMINOPHEN 5-325 MG ORAL TABLET Take one tablet by mouth every 6 hours 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 Use sparingly OXYCODONE-ACETAMINOPHEN 50096835604 Active Tesfaye villar MD Active CLONAZEPAM 0.5 MG ORAL TABLET Take 1/2 qam, and 1/2 qpm CLONAZEPAM 52321694275 Active Tesfaye Sherman MD Active PRELIEF 340 (65-50) MG (CA-P) ORAL TABLET CALCIUM GLYCEROPHOSPHATE 50284145321 No Longer Active Tesfaye Sherman MD Active SUDAFED 24 HOUR 240 MG ORAL TABLET EXTENDED RELEASE 24 HOUR 1 tab po daily PSEUDOEPHEDRINE HCL 35279877271 No Longer Active Raul Sherman MD Active RED YEAST RICE 600 MG ORAL CAPSULE 1 pill by mouth daily RED YEAST RICE EXTRACT 01303917763 No Longer Active Tesfaye Sherman MD Active REPHRESH PRO-B ORAL CAPSULE 1 tablet daily LACT OBACILLUS 75643964116 No Longer Active Tesfaye Sherman MD Active ABILIFY 2 MG ORAL TABLET 1 by mouth daily. MARIA ELENA PIPRAZOLE 68657011349 Active Tesfaye Sherman MD Active CYMBALTA 60 MG ORAL CAPSULE DELAYED RELEASE PARTICLES 1 cap by mouth daily for pain DULOXETINE HCL 86973674335 Active MARCUS Lindsay Active DIFLUCAN 100 MG ORAL TABLET 1 tablet by mouth daily 20/06/06 FLUCONAZOLE 89042049005 No Longer Active Tesfaye Sherman MD Acti ve PREDNISONE 20 MG ORAL TABLET 1 tablet by mouth twice d aily for 3 days, then 1 tablet daily for 3 days PREDNISONE 78403116344 No L onger Active Tesfaye Sherman MD Active BACTRIM DS 800-160 MG ORAL TABLET 1 tab by mouth twice daily 201 06/09/02 TRIMETHOPRIM-SULFAMETHOXAZOLE 01284453170 No Longer Active Fer Dominguez Active DIFLUCAN 100 MG ORAL TABLET 1 tablet by mouth daily 20 20/05/01 FLUCONAZOLE 57015830881 No Longer Active Tesfaye Sherman MD Acti ve ZITHROMAX 250 MG ORAL TABLET 2 po today, then 1 po q days 2-5 20 20/04/28 AZITHROMYCIN 99215391243 No Longer Active Tesfaye Sherman MD Active MECLIZINE HCL 25 MG ORAL TABLET one tab po qday prn dizziness 20 17/09/06 MECLIZINE HCL 32983803172 No Longer Active Tesfaye Sherman MD Active PROAIR HFA 108 (90 BASE) MCG/ACT INHALATION AEROSOL SO LUTION 1 puff every 6 hours as needed ALBUTEROL SULFATE 95398308720 No Long er Active Tesfaye Sherman MD Active PREDNISONE 20 MG ORAL TABLET 1 tab twice daily for 3 d ay, then one daily for three days PREDNISONE 60799429168 No Longer Active Tesfaye Sherman MD Active MECLIZINE HCL 25 MG ORAL TABLET one 4 times a day as needed for dizziness MECLIZINE HCL 17716369566 Active Tesfaye Sherman MD Active AMOXICILLIN 500 MG ORAL CAPSULE 1 cap by mouth three times a day AMOXICILLIN 84477548075 No Longer Active Laurence Dominguez Acti ve DIFLUCAN 100 MG ORAL TABLET 1 tablet by mouth daily 20 19/08/26 FLUCONAZOLE 17930569692 No Longer Active Tesfaye Sherman MD Acti ve BACTRIM DS 800-160 MG ORAL TABLET 1 tab by mouth twice daily 201 05/10/28 TRIMETHOPRIM-SULFAMETHOXAZOLE 99087680285 No Longer Active Fer Dominguez Active FOSAMAX 70 MG ORAL TABLET 1 po qweek. Take 30min prio r to first food/drink. Avoid lying down x 1 hour. ALENDRONATE SODIUM 77381010 144 No Longer Active Laurence Dominguez Active CYMBALTA 60 MG ORAL CAPSULE DELAYED RELEASE PARTICLES Take 1 tablet by mouth daily DULOXETINE HCL 11259650435 No Longer Active Edith Burch MD Active CYMBALTA 30 MG ORAL CAPSULE DELAYED RELEASE PARTICLES 1 cap by mouth daily with 60mg DULOXETINE HCL 24275146272 No Longer Active Jordan Burch MD Active DIFLUCAN 100 MG ORAL TABLET 1 tablet by mouth daily 19/03/05 FLUCONAZOLE 88438272475 No Longer Active Tesfaye Sherman MD Acti ve BACTRIM DS 800-160 MG ORAL TABLET 1 tab by mouth twice daily 201 05/06/28 TRIMETHOPRIM-SULFAMETHOXAZOLE 44043845072 No Longer Active Umer Sherman MD Active BACTRIM DS 800-160 MG ORAL TABLET 1 tab by mouth twice daily 201 05/04/15 TRIMETHOPRIM-SULFAMETHOXAZOLE 75473592692 No Longer Active Umer Sherman MD Active DIFLUCAN 150 MG ORAL TABLET 1 tablet by mouth daily 20 18/09/20 FLUCONAZOLE 06704461739 No Longer Active Tesfaye Sherman MD Acti ve BACTRIM DS 800-160 MG ORAL TABLET 1 tab by mouth twice daily 201 04/13/17 TRIMETHOPRIM-SULFAMETHOXAZOLE 72004278076 No Longer Active Umer Sherman MD Active CEFTIN 250 MG ORAL TABLET 1 tablet twice daily x 7 days CEFUROXIME AXETIL 52507603883 No Longer Active Tesfaye Sherman MD Active DIFLUCAN 100 MG ORAL TABLET 1 tablet by mouth every other da y for 2 doses FLUCONAZOLE 36503843371 No Longer Active Tesfaye barron MD Active DIFLUCAN 100 MG ORAL TABLET 1 tablet by mouth daily X 3 DAYS 201 04/09/01 FLUCONAZOLE 99070939515 No Longer Active Rj Ravi MIRTAZAPINE 15 MG ORAL TABLET 1/2 tab by mouth at bedtime. 03/13 MIRTAZAPINE 13940855597 No Longer Active Tesfaye Sherman MD Active BACTRIM DS 800-160 MG ORAL TABLET 1 tab by mouth twice daily 201 04/09/01 TRIMETHOPRIM-SULFAMETHOXAZOLE 48480301070 No Longer Active Umer Sherman MD Active PRAMIPEXOLE DIHYDROCHLORIDE 0.125 MG ORAL TABLET take 1 tablet po qhs for restless leg syndrome. PRAMIPEXOLE DIHYDROCHLORI DE 34733941315 No Longer Active Tesfaye Sherman MD Active MAGNESIUM 400 MG ORAL TABLET 1 tab po daily MAGNE SIUM 26794562037 Active Chelsea Theresa PRACTICE SPECIALIST Active CETIRIZINE HCL 5 MG ORAL TABLET Take 1 tablet by mouth daily CETIRIZINE HCL 53775536070 No Longer Active Chelsea Cardenas PRACTICE SPECIALIST Activ e TRIMETHOPRIM 100 MG ORAL TABLET 1/2 qd TRIM ETHOPRIM 88492761789 No Longer Active Chelsea Cardenas APRN Active BACTRIM DS 800-160 MG ORAL TABLET 1 tab by mouth twice daily 201 04/04/11 TRIMETHOPRIM-SULFAMETHOXAZOLE 28512509856 No Longer Active Umer Sherman MD Active BACTRIM DS 800-160 MG ORAL TABLET 1 tab by mouth twice daily X 10 DAYS TRIMETHOPRIM-SULFAMETHOXAZOLE 78369404721 No Longer Active Tesfaye Sherman MD Active AMOXICILLIN 500 MG ORAL CAPSULE 1 cap by mouth three times a day AMOXICILLIN 11499151665 No Longer Active MARCUS Maravilla A ctive B-12 1000 MCG ORAL LOZENGE 1 tab po daily CYANO COBALAMIN 24028651975 Active Tesfaye Sherman MD Active VITAMIN D3 2000 UNIT ORAL TABLET 1 daily, for vitamin D deficien cy CHOLECALCIFEROL 64872372144 No Longer Active Tesfaye Sherman MD Active ZITHROMAX 250 MG ORAL TABLET 2 po today, then 1 po q days 2-5 20 15/02/10 AZITHROMYCIN 35046918958 No Longer Active Tesfaye Sherman MD Active BACTRIM DS 800-160 MG ORAL TABLET 1 tab by mouth twice daily 201 5/01/23 TRIMETHOPRIM-SULFAMETHOXAZOLE 14448431052 No Longer Active Umer Sherman MD Active DIFLUCAN 150 MG ORAL TABLET 1 qd FLUCONAZOL E 15323056255 No Longer Active Kayla Cooper MD Active FLUTICASONE PROPIONATE 50 MCG/ACT NASAL SUSPENSION 1 spray each nostril twice daily FLUTICASONE PROPIONATE 13043707077 Active Umer Sherman MD Active LOVASTATIN 20 MG ORAL TABLET Take 1 tablet by mouth daily LOVASTATIN 12968315517 No Longer Active Tesfaye Sherman MD Acti ve MELOXICAM 7.5 MG ORAL TABLET 1 tablet by mouth daily 2 MELOXICAM 59905419417 No Longer Active Tesfaye Sherman MD Acti ve GABAPENTIN 300 MG ORAL CAPSULE Take two tablets by mouth every e vening GABAPENTIN 44372751755 No Longer Active Edith Burch MD A ctive GABAPENTIN 300 MG ORAL CAPSULE Take two tablets by mouth every e vening GABAPENTIN 300 MG ORAL CAPSULE 638107 GABAPENTIN I nactive MELOXICAM 7.5 MG ORAL TABLET 1 tablet by mouth daily 2 MELOXICAM 7.5 MG ORAL TABLET 908432 MELOXICAM Inactive LOVASTATIN 20 MG ORAL TABLET Take 1 tablet by mouth daily LOVASTATIN 20 MG ORAL TABLET 513848 LOVASTATIN Inactive DIFLUCAN 150 MG ORAL TABLET 1 qd DIFLUCAN 150 MG ORAL TABLET 230854 FLUCONAZOLE Inactive VITAMIN D3 2000 UNIT ORAL TABLET 1 daily, for vitamin D deficien cy VITAMIN D3 2000 UNIT ORAL TABLET CHOLECALCIFEROL Inactive AMOXICILLIN 500 MG ORAL CAPSULE 1 cap by mouth three times a day AMOXICILLIN 500 MG ORAL CAPSULE 370232 AMOXICILLIN Inactive BACTRIM DS 800-160 MG ORAL TABLET 1 tab by mouth twice daily X 10 DAYS BACTRIM DS 800-160 MG ORAL TABLET 492651 TRIMETHOPRIM-SULFAMETHOXAZOLE Inactive TRIMETHOPRIM 100 MG ORAL TABLET 1/2 qd 7 TRIMETHOPRIM 100 MG ORAL TABLET 721496 TRIMETHOPRIM Inactive CETIRIZINE HCL 5 MG ORAL TABLET Take 1 tablet by mouth daily CETIRIZINE HCL 5 MG ORAL TABLET 1004655 CETIRIZINE HCL Inactive PRAMIPEXOLE DIHYDROCHLORIDE 0.125 MG ORAL TABLET take 1 tablet po qhs for restless leg syndrome. PRAMIPEXOLE DIHYD ROCHLORIDE 0.125 MG ORAL TABLET 169728 PRAMIPEXOLE DIHYDROCHLORIDE Inactive MIRTAZAPINE 15 MG ORAL TABLET 1/2 tab by mouth at bedtime. 03/13 MIRTAZAPINE 15 MG ORAL TABLET 852427 MIRTAZAPINE In active DIFLUCAN 100 MG ORAL TABLET 1 tablet by mouth daily X 3 DAYS 201 04/09/01 DIFLUCAN 100 MG ORAL TABLET 229572 FLUCONAZOLE Inac tive DIFLUCAN 100 MG ORAL TABLET 1 tablet by mouth every other da y for 2 doses DIFLUCAN 100 MG ORAL TABLET 352591 FLUCONAZOLE Inactive CEFTIN 250 MG ORAL TABLET 1 tablet twice daily x 7 days CEFTIN 250 MG ORAL TABLET CEFUROXIME AXETIL Inactive CYMBALTA 30 MG ORAL CAPSULE DELAYED RELEASE PARTICLES 1 cap by mouth daily with 60mg CYMBALTA 30 MG ORAL CAPSULE DELAYED RELEASE PARTICLES 566798 DULOXETINE HCL Inactive CYMBALTA 60 MG ORAL CAPSULE DELAYED RELEASE PARTICLES Take 1 tablet by mouth daily CYMBALTA 60 MG ORAL CAPSULE DELAYED RELEA SE PARTICLES 542483 DULOXETINE HCL Inactive FOSAMAX 70 MG ORAL TABLET 1 po qweek. Take 30min prio r to first food/drink. Avoid lying down x 1 hour. FOSAMAX 70 MG ORAL TA BLET 483465 ALENDRONATE SODIUM Inactive DIFLUCAN 100 MG ORAL TABLET 1 tablet by mouth daily 19/08/26 DIFLUCAN 100 MG ORAL TABLET 607922 FLUCONAZOLE Inactive PREDNISONE 20 MG ORAL TABLET 1 tab twice daily for 3 d ay, then one daily for three days PREDNISONE 20 MG ORAL TABLET 594127 PREDNIS ONE Inactive PROAIR HFA 108 (90 BASE) MCG/ACT INHALATION AEROSOL SO LUTION 1 puff every 6 hours as needed PROAIR HFA 108 (90 B ASE) MCG/ACT INHALATION AEROSOL SOLUTION ALBUTEROL SULFATE Inactive MECLIZINE HCL 25 MG ORAL TABLET one tab po qday prn dizziness 20 17/09/06 MECLIZINE HCL 25 MG ORAL TABLET 234984 MECLIZINE HCL Inactive PREDNISONE 20 MG ORAL TABLET 1 tablet by mouth twice d aily for 3 days, then 1 tablet daily for 3 days PREDNISONE 20 MG ORAL TA BLET 023596 PREDNISONE Inactive DIFLUCAN 100 MG ORAL TABLET 1 tablet by mouth daily 20/06/06 DIFLUCAN 100 MG ORAL TABLET 19760711 FLUCONAZOLE Inactive REPHRESH PRO-B ORAL CAPSULE 1 tablet daily REPHRESH PRO-B ORAL CAPSULE LACTOBACILLUS Inactive RED YEAST RICE 600 MG ORAL CAPSULE 1 pill by mouth daily RED YEAST RICE 600 MG ORAL CAPSULE 745763 RED YEAST RICE EXTRACT In active SUDAFED [...] 20 19/02/09 DIFLUCAN 100 MG ORAL TABLET 853716 FLUCONAZOLE Inactive VENLAFAXINE HCL 75 MG ORAL TABLET 1 am 1/2 at noon 201 07/07/09 VENLAFAXINE HCL 75 MG ORAL TABLET 606614 VENLAFAXINE HCL Inacti ve GABAPENTIN 300 MG ORAL CAPSULE 1 po daily GABAPENTIN 300 MG ORAL CAPSULE 974832 GABAPENTIN Inactive SUDAFED 12 HOUR 120 MG ORAL TABLET EXTENDED RELEASE 12 HOUR 1 pill twice daily if needed for congestion SUDAFED 12 HOUR 120 MG ORAL TABLET EXTENDED RELEASE 12 HOUR PSEUDOEPHEDRINE HCL Inactive AMITRIPTYLINE HCL 10 MG ORAL TABLET 1 tablet nightly by mout h for neuropathy AMITRIPTYLINE HCL 10 MG ORAL TABLET 504490 AMITRIPTYLINE HCL Inactive AMITRIPTYLINE HCL 50 MG ORAL TABLET 1 po q hs for sleep AMITRIPTYLINE HCL 50 MG ORAL TABLET 225082 AMITRIPTYLINE HCL Inac tive PREDNISONE 20 MG ORAL TABLET 1 tab twice daily for 3 d ay, then one daily for three days PREDNISONE 20 MG ORAL TABLET 158145 PREDNIS ONE Inactive ROPINIROLE HCL 0.25 MG ORAL TABLET 1 TAB PO Q HS 05/31 ROPINIROLE HCL 0.25 MG ORAL TABLET 552073 ROPINIROLE HCL Inact trent ROPINIROLE HCL 0.5 MG ORAL TABLET 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 ROPINIROLE HCL 0.5 MG ORAL TABLET 650770 ROPINIR OLE HCL Inactive ROPINIROLE HCL 1 MG ORAL TABLET 1 tab po q hs ROPINIROLE HCL 1 MG ORAL TABLET 223716 ROPINIROLE HCL Inactive ROPINIROLE HCL 2 MG ORAL TABLET 1 po at hs 7 ROPINIROLE HCL 2 MG ORAL TABLET 766057 ROPINIROLE HCL Inactive MIRAPEX 0.125 MG ORAL TABLET 1 po nightly MIRAPEX 0.125 MG ORAL TABLET 655623 PRAMIPEXOLE DIHYDROCHLORIDE Inactive MIRAPEX 0.25 MG ORAL TABLET 1 tablet by mouth at night for r estless leg MIRAPEX 0.25 MG ORAL TABLET 907808 PRAM IPEXOLE DIHYDROCHLORIDE Inactive HYDROXYZINE HCL 25 MG ORAL TABLET 1 tab po at HS prn sleep 08/02 HYDROXYZINE HCL 25 MG ORAL TABLET 134753 HYDROXYZINE HC L Inactive DIFLUCAN 100 MG [...] three days PREDNISONE 20 MG ORAL TABLET 834010 PREDNIS ONE Inactive UNISOM SLEEPMELTS 25 MG [...] 20 15/02/10 ZITHROMAX 250 MG ORAL TABLET 521574 AZITHROMYCIN Mayela ctive BACTRIM DS 800-160 MG [...] a day AMOXICILLIN 500 MG ORAL CAPSULE 836330 AMOXICILLIN Inactive ZITHROMAX 250 MG ORAL TABLET 2 po today, then 1 po q days 2-5 20 20/04/28 ZITHROMAX 250 MG ORAL TABLET 637288 AZITHROMYCIN [place] ctive DIFLUCAN 100 MG ORAL TABLET 1 tablet by mouth daily 20 20/05/01 DIFLUCAN 100 MG ORAL TABLET 523971 FLUCONAZOLE Inactive BACTRIM DS 800-160 MG ORAL TABLET 1 tab by mouth twice daily 201 06/09/02 BACTRIM DS 800-160 MG ORAL TABLET 19830105 TRIMETHOPRIM-SULFAMETHOXAZOLE Inactive HYDROCHLOROTHIAZIDE 12.5 MG ORAL CAPSULE 1 pill by mough daily 2 HYDROCHLOROTHIAZIDE 12.5 MG ORAL CAPSULE [facility] LOROTHIAZIDE Inactive BACTRIM DS 800-160 MG ORAL TABLET 1 tab by mouth twice daily 201 07/08/06 BACTRIM DS 800-160 MG ORAL TABLET 19830105 TRIMETHOPRIM-SULFAMETHOXAZOLE Inactive DIFLUCAN 100 MG ORAL TABLET 1 tablet by mouth daily 20 21/03/11 DIFLUCAN 100 MG ORAL TABLET 386526 FLUCONAZOLE Inactive ZITHROMAX 250 MG ORAL TABLET 2 po today, then 1 po q days 2-5 20 21/08/28 ZITHROMAX 250 MG ORAL TABLET 597584 AZITHROMYCIN [place] ctive FLUCONAZOLE 100 MG ORAL TABLET 1 by mouth daily for yeast infect ion FLUCONAZOLE 100 MG ORAL TABLET 587981 FLUCONAZOLE I nactive Advance Directives Directive Description Start Date PERMISSION TO SHARE DISCUSSED WITH PATIENT -- NO DECISION MADE DISCUSED WITH PATIENT -- FULL CODE LIVING WILL ON FILE DURABLE POWER OF RADIO DIVISION LIEUTENANT FOR HEALTHCARE Vital Signs Date Name Value Unit Range Description blood pressure, diastolic, repeated by physician 66 [...] Magnesium - Chemistry cholesterol, serum 196 mg/dL 246-781 7882/07/30 triglyceride, serum, fasting 86 mg/dL 30-200 HDL cholesterol, serum 41 mg/dL 32-60 LDL cholesterol, serum 138 mg/dL 0-130 sodium, serum 140 mmol/L 054-024 4745/07/30 carbon dioxide, venous blood 28.6 mmol/L 21.0-32 [...] 5.0-8.5 Encounters Code Encounter Date Provider Facility CPT-71394 [id number] Vst-Est Level IV 13:49:08 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 88830-Tab Vst-Est Level IV 11:39:[address] Tesfaye Sherman MD [facility] CPT-92867 43043-Fhj Vst-Est Level IV 14:08:03 C BRIDGET Sherman MD [facility] CPT-86171 Level 3 Est. Patient 18:06:36 CDT Tesfaye pearson MD [facility] CPT-81114 40696-Yzn Vst-Est Level IV 17:09:34 C BRIDGET Sherman MD [facility] CPT-51175 Level 3 Est. Patient 17:27:08 CDT León hernandez [facility] CPT-21090 29215-Kqg Vst-Est Level IV 14:00:[address] Tesfaye Sherman MD [facility] CPT-65679 55669-Lvw Vst-Est Level IV 19:27:[address] Tesfaye Sherman MD [facility] CPT-61246 23440-Iru Vst-Est Level IV 10:41:41 C BRIDGET Sherman MD [facility] CPT-55853 19257-Snc Vst-Est Level III 09:40:56 CDT Tesfaye Sherman MD [facility] CPT-93762 Level 4 Est. Patient 22:18:12 CDT Tesfaye pearson MD [facility] CPT-69765 Level 4 Est. Patient 14:44:33 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 Tesfaye pearson MD [facility] CPT-13620 Level 4 Est. Patient 13:55:29 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 Tesfaye pearson MD [facility] CPT-33928 Level 4 Est. Patient 17:07:34 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 Tesfaye pearson MD [facility] CPT-32025 Level 4 Est. Patient 13:56:54 CDT Tesfaye pearson MD [facility] CPT-23204 Level 4 Est. Patient 13:24:25 CDT Chelsea sanz [facility] CPT-63845 Level 4 Est. Patient 09:14:56 CDT Tesfaye pearson MD [facility] CPT-33927 Level 4 Est. Patient 18:40:25 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 Tefsaye pearson MD [facility]-08507 Level 4 Est. Patient 18:13:07 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 Tesfaye pearson MD [facility]-78261 Level 3 Est. Patient 10:46:32 CDT Rj Jaron Israel cotto DO [facility]-22591 Level 4 Est. Patient 20:19:25 CDT Tesfaye pearson MD [facility]-56753 Level 3 Est. Patient 09:07:31 CDT Tesfaye pearson MD [facility]-22236 Level 4 Est. Patient 13:12:56 CDT Tesfaye pearson MD [facility]-01768 Level 4 Est. Patient 21:24:55 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 Tesfaye pearson MD [facility]-38502 Level 3 Est. Patient 13:45:04 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 Tesfaye pearson MD [facility] CPT-62055 Level 4 Est. Patient 13:50:45 CDT Tesfaye pearson MD [facility] CPT-97296 Level 3 Est. Patient 10:16:10 CDT Tesfaye pearson MD [facility] CPT-32681 Level 3 Est. Patient 16:36:07 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 Kayla jameson MD [facility]-17222 Level 4 Est. Patient 16:00:14 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 Tesfaye pearson MD [facility]-24733 Level 4 Est. Patient 11:02:24 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 Tesfaye pearson MD [facility]-90399 Level 3 Est. Patient 20:21:43 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 Kayla jameson MD [facility]-57737 Level 3 Est. Patient 13:27:28 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 Kayla jameson MD [facility]-78456 Level 4 Est. Patient 15:57:17 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 Tesfaye pearson MD [facility] CPT-08275 Level 3 New Patient 13:25:47 CDT Tesfaye kidd MD [facility] CPT-88058 Level 3 New Patient 17:22:21 CDT Kayla angel MD [facility] Procedures Code Procedure Name Date Entry Date Standard Desc ription [id number] (4274F 2P) Patient Reason Influenza immu nization not administered 13:25:19 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 CPT-54001 Bone Density - XRAY USE ONLY 15:21:33 CDT 2 CPT-94019 Venipuncture Draw Fee 16:12:22 CDT CPT-G0439 Subsequent Annual Wellness Exam 18:06:36 CDT CPT-G0439 Subsequent Annual Wellness Exam 22:18:11 CDT CPT-28733 Bone Density - XRAY USE ONLY 11:43:58 CDT 2 CPT-77814 Bone Density - XRAY USE ONLY 10:05:16 CDT 2 CPT-60500 Prv Med New Pt 40-64 yrs 18:19:25 CDT 2016 CPT-60104 Foot, right, comp min 3V - XRAY USE ONLY 10:38:34 CDT CPT-G0439 Subsequent Annual Wellness Exam 13:55:04 CDT CPT-G0438 Initial Annual Wellness Exam 11:23:17 CD T CPT-J2930 Solu Medrol 125 mg (Methyl Prednisolone Sodium Succinate) 17:29:12 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 CPT-63112 Abx/Therapy Injection 17:29:11 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 CPT-J2930 Solu Medrol 125 mg (Methyl Prednisolone Sodium Succinate) 12:34:38 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 CPT-J3420 Vitamin B12 1000mcg (Cyanocobalamin) 09:12:55 CDT CPT-J3420 Vitamin B12 1000mcg (Cyanocobalamin) 16:28:06 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 CPT-10076 Venipuncture Draw Fee 08:39:53 CDT CPT-J3420 Vitamin B12 1000mcg (Cyanocobalamin) 08:46:22 CDT CPT-62346 Abx/Therapy Injection 08:46:22 CDT CPT-J3420 Vitamin B12 1000mcg (Cyanocobalamin) 08:41:26 CDT CPT-40068 Abx/Therapy Injection 08:41:26 CDT CPT-J3420 Vitamin B12 1000mcg (Cyanocobalamin) 08:57:15 CDT CPT-57245 Abx/Therapy Injection 08:57:15 CDT CPT-J3420 Vitamin B12 1000mcg (Cyanocobalamin) 10:59:03 CDT CPT-84791 Abx/Therapy Injection 10:59:03 CDT CPT-J3420 Vitamin B12 1000mcg (Cyanocobalamin) 15:05:39 CDT CPT-25265 Abx/Therapy Injection 15:05:39 CDT CPT-J3420 Vitamin B12 1000mcg (Cyanocobalamin) 13:50:45 CDT CPT-J3420 Vitamin B12 1000mcg (Cyanocobalamin) 08:48:55 CDT CPT-53940 Abx/Therapy Injection 08:48:55 CDT CPT-J3420 Vitamin B12 1000mcg (Cyanocobalamin) 09:14:54 CDT CPT-02025 Abx/Therapy Injection 09:14:54 CDT CPT-J3420 Vitamin B12 1000mcg (Cyanocobalamin) 09:06:06 CDT CPT-36402 Abx/Therapy Injection 09:06:06 CDT CPT-J3420 Vitamin B12 1000mcg (Cyanocobalamin) 09:49:14 CDT CPT-63942 Abx/Therapy Injection 09:49:14 CDT CPT-J3420 Vitamin B12 1000mcg (Cyanocobalamin) 09:10:30 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 CPT-28946 Abx/Therapy Injection 09:10:30 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 CPT-J3420 Vitamin B12 1000mcg (Cyanocobalamin) 09:11:07 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 CPT-79106 Abx/Therapy Injection 09:11:07 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 CPT-J3420 Vitamin B12 1000mcg (Cyanocobalamin) 09:57:03 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 CPT-14908 Abx/Therapy Injection 09:57:03 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 CPT-J3420 Vitamin B12 1000mcg (Cyanocobalamin) 09:23:21 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 CPT-47964 Abx/Therapy Injection 09:23:21 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 CPT-71443 Urine Dip (Floor Use Only) 20:21:44 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 201 02/12/11 CPT-39975 UA Dip Auto (Floor Use Only) 10:04:39 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 2 CPT-43294 Urine Dip (Floor Use Only) 13:27:28 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 201 02/12/01 CPT-88349 Bladder Scan 13:27:28 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 CPT-07472 Abd single AP View 14:30:51 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 CPT-OV Office Visit 10:15:43 CDT CPT-22130 Urine Dip (Floor Use Only) 17:22:21 CDT 201 02/09/02 CPT-46609 Bladder Scan 17:22:21 CDT
--- OUTSIDE RECORDS SUMMARY | 2020-05-05 11:06 | XMS REPORT | Clinical Summary ---
Author Author Talon, Jeri Wood Organization [employer] Address Unknown Phone Unavailable Allergies, Adverse Reactions, Alerts Allergy Name Reaction Description Start Date Severity Status Pr ovider FOSAMAX Critical Active Tesfaye aremnta MD PRAMIPEXOLE Critical Active Tesfaye villar MD [...] Sherman MD Routine general medical examination at [facility] acility Sinusitis 461.9 Resolved Tesfaye [...] Routine general medical examination at [facility] acility Body Mass Index 21.0-21.9 Adult Refinement 2017 Tesfaye Sherman MD Body Mass Index between 19-24, adult BMI 22-22.9 Refinement Tesfaye Sherman MD Body Mass Index between 19-24, adult BMI 23-23.9 Refinement León Mariee APRN Body Mass Index between 19-24, adult BMI 22-22.9 Refinement Tesfaye Sherman MD Body Mass Index between 19-24, adult BMI 23-23.9 Active Tesfaye Sherman MD Body Mass Index [...] Tesfaye Sherman MD Dysuria High risk meds alf use V58.6 Active Tesfaye Sherman MD Long-term (current) drug use Yeast infection 112.9 Inactive Tesfaye Sherman MD Candidiasis of unspecified site Upper respiratory infection 465.9 Inactive Tesfaye Sherman MD Acute upper respiratory infections of un specified site Lower extremity edema, bilateral 782.3 Active 201 07/07/09 León Kodi NONPROFIT FUNDRAISER Edema Peripheral neuropathy 356.9 Active Tesfaye lamb MD Unspecified hereditary and idiopathic peripheral neuropathy Restless leg syndrome 333.94 Active Tesfaye lamb MD Restless legs syndrome (RLS) FH Depression ICD-V17.0 Inactive Tesfaye Sherman MD [...] 201 07/05/07 Body Mass Index 20.0-20.9 Adult Inactiv jim Shah RMA Dysuria ICD-788.1 Inactive Tesfaye Sherman MD 201 07/05/07 Yeast infection ICD-112.9 Inactive Tesfaye lamb MD Upper respiratory infection ICD-465.9 Inactive Tesfaye Sherman MD Medication List Medication Instructions Start Date Stop Date Generic Name NDC Status Provider Patient Instruction HYDROXYZINE HCL 25 MG TABS TAKE 1 TABLET BY MOUTH AT B EDTIME NEEDED FOR SLEEP HYDROXYZINE HCL 43116800268 Active JOSHUA Lindsay Active FLUCONAZOLE 100 MG ORAL TABLET 1 by mouth daily for yeast infect ion FLUCONAZOLE 12581199993 No Longer Active Laurence Dominguez Acti ve PREDNISONE 20 MG ORAL TABLET 1 tab twice daily for 3 d ay, then one daily for three days PREDNISONE 69090507627 Active Tesfaye Sherman MD Active ZITHROMAX 250 MG ORAL TABLET 2 po today, then 1 po q days 2-5 20 21/08/28 AZITHROMYCIN 82046209699 No Longer Active Tesfaye Sherman MD Active DIFLUCAN 100 MG ORAL TABLET 1 tablet by mouth daily 20 21/08/28 FLUCONAZOLE 20783563797 No Longer Active Tesfaye Sherman MD Acti ve UNISOM SLEEPMELTS 25 MG ORAL TABLET DISINTEGRATING 1.5 po q hs 201 07/13/28 DIPHENHYDRAMINE HCL (SLEEP) 28872239868 Active Tesfaye Sherman MD Active HYDROXYZINE HCL 25 MG ORAL TABLET 1 tab po at HS prn sleep 08/02 HYDROXYZINE HCL 65319508505 No Longer Active Tesfaye Sherman MD Active MIRAPEX 0.5 MG ORAL TABLET 1 tablet at night for restless leg. 2018 PRAMIPEXOLE DIHYDROCHLORIDE 40280840521 Active Laurenceyohana Dominguez Active MIRAPEX 0.25 MG ORAL TABLET 1 tablet by mouth at night for r estless leg PRAMIPEXOLE DIHYDROCHLORIDE 16762161006 No Longer Act trent Laurence Raida Active MIRAPEX 0.125 MG ORAL TABLET 1 po nightly PRAMIPEXOLE DIHYDROCHLORIDE 56893679187 No Longer Active Laurence Lopezduyen Active ROPINIROLE HCL 2 MG ORAL TABLET 1 po at hs ROPI NIROLE HCL 33713386356 No Longer Active Laurenceyohana Dominguez Active ROPINIROLE HCL 1 MG ORAL TABLET 1 tab po q hs ROPINIROLE HCL 40473467592 No Longer Active Laurenceyohana Dominguez Active ROPINIROLE HCL 0.5 MG ORAL TABLET 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 ROPINIROLE HCL 03963872337 No Longer Active MARCUS Panchal Active ROPINIROLE HCL 0.25 MG ORAL TABLET 1 TAB PO Q HS 05/31 ROPINIROLE HCL 91899578287 No Longer Active Tesfaye Sherman MD Ac tive PREDNISONE 20 MG ORAL TABLET 1 tab twice daily for 3 d ay, then one daily for three days PREDNISONE 83352460295 No Longer Active Tesfaye Sherman MD Active AMITRIPTYLINE HCL 50 MG ORAL TABLET 1 po q hs for sleep AMITRIPTYLINE HCL 64722162815 No Longer Active Tesfaye Sherman MD Active AMITRIPTYLINE HCL 10 MG ORAL TABLET 1 tablet nightly by mout h for neuropathy AMITRIPTYLINE HCL 63128106384 No Longer Active MARCUS Stapleton Active DIFLUCAN 100 MG ORAL TABLET 1 tablet by mouth daily 20 21/03/11 FLUCONAZOLE 35146557626 No Longer Active Tesfaye Sherman MD Acti ve BACTRIM DS 800-160 MG ORAL TABLET 1 tab by mouth twice daily 201 07/08/06 TRIMETHOPRIM-SULFAMETHOXAZOLE 13760544797 No Longer Active Umer Sherman MD Active CLARITIN 10 MG ORAL TABLET Take one by mouth daily LORATADINE 22330305613 Active Tesfaye Sherman MD Active SUDAFED 12 HOUR 120 MG ORAL TABLET EXTENDED RELEASE 12 HOUR 1 pill twice daily if needed for congestion PSEUDOEPHEDRINE HCL 677167346 13 No Longer Active Tesfaye Sherman MD Active FENOFIBRATE 145 MG ORAL TABLET 1 by mouth daily FENOFIBRATE 70028011001 Active Laurence Dominguez Active GABAPENTIN 300 MG ORAL CAPSULE 1 po daily GABAP ENTIN 94181043005 No Longer Active Tesfaye Sherman MD Active HYDROCHLOROTHIAZIDE 12.5 MG ORAL CAPSULE 1 pill by mough daily 2 HYDROCHLOROTHIAZIDE 05997267333 No Longer Active León Mariee APRN Active VENLAFAXINE HCL 75 MG ORAL TABLET 1 am 1/2 at noon 201 07/07/09 VENLAFAXINE HCL 27571891950 No Longer Active León Kodi NONPROFIT FUNDRAISER Act trent DIFLUCAN 100 MG ORAL TABLET 1 tablet by mouth daily 20 19/02/09 FLUCONAZOLE 26329897831 No Longer Active León Kodi NONPROFIT FUNDRAISER Active DIFLUCAN 100 MG ORAL TABLET 1 tablet by mouth daily 19/02/09 FLUCONAZOLE 85858177775 No Longer Active León Kodidavid MERCADO Active OXYCODONE-ACETAMINOPHEN 5-325 MG ORAL TABLET Take one tablet by mouth every 6 hours 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 Use sparingly OXYCODONE-ACETAMINOPHEN 59792636742 Active Tesfaye villar MD Active CLONAZEPAM 0.5 MG ORAL TABLET Take 1/2 qam, and 1/2 qpm CLONAZEPAM 02845311290 Active Tesfaye Sherman MD Active PRELIEF 340 (65-50) MG (CA-P) ORAL TABLET CALCIUM GLYCEROPHOSPHATE 68523950156 No Longer Active Tesfaye Sherman MD Active SUDAFED 24 HOUR 240 MG ORAL TABLET EXTENDED RELEASE 24 HOUR 1 tab po daily PSEUDOEPHEDRINE HCL 30940254912 No Longer Active Raul Sherman MD Active RED YEAST RICE 600 MG ORAL CAPSULE 1 pill by mouth daily RED YEAST RICE EXTRACT 83681818848 No Longer Active Tesfaye Sherman MD Active REPHRESH PRO-B ORAL CAPSULE 1 tablet daily LACT OBACILLUS 78603917876 No Longer Active Tesfaye Sherman MD Active ABILIFY 2 MG ORAL TABLET 1 by mouth daily. MARIA ELENA PIPRAZOLE 29470156688 Active Tesfaye Sherman MD Active CYMBALTA 60 MG ORAL CAPSULE DELAYED RELEASE PARTICLES 1 cap by mouth daily for pain DULOXETINE HCL 89808140839 Active MARCUS Lindsay Active DIFLUCAN 100 MG ORAL TABLET 1 tablet by mouth daily 20 20/06/06 FLUCONAZOLE 93859813592 No Longer Active Tesfaye Sherman MD Acti ve PREDNISONE 20 MG ORAL TABLET 1 tablet by mouth twice d aily for 3 days, then 1 tablet daily for 3 days PREDNISONE 81447311153 No L onger Active Tesfaye Sherman MD Active BACTRIM DS 800-160 MG ORAL TABLET 1 tab by mouth twice daily 201 06/09/02 TRIMETHOPRIM-SULFAMETHOXAZOLE 96078611492 No Longer Active Fer Dominguez Active DIFLUCAN 100 MG ORAL TABLET 1 tablet by mouth daily 20 20/05/01 FLUCONAZOLE 21598285396 No Longer Active Tesfaye Sherman MD Acti ve ZITHROMAX 250 MG ORAL TABLET 2 po today, then 1 po q days 2-5 20 20/04/28 AZITHROMYCIN 64983660572 No Longer Active Tesfaye Sherman MD Active MECLIZINE HCL 25 MG ORAL TABLET one tab po qday prn dizziness 20 17/09/06 MECLIZINE HCL 35602452555 No Longer Active Tesfaye Sherman MD Active PROAIR HFA 108 (90 BASE) MCG/ACT INHALATION AEROSOL SO LUTION 1 puff every 6 hours as needed ALBUTEROL SULFATE 69358828745 No Long er Active Tesfaye Sherman MD Active PREDNISONE 20 MG ORAL TABLET 1 tab twice daily for 3 d ay, then one daily for three days PREDNISONE 59667942020 No Longer Active Tesfaye Sherman MD Active MECLIZINE HCL 25 MG ORAL TABLET one 4 times a day as needed for dizziness MECLIZINE HCL 40323561938 Active Tesfaye Sherman MD Active AMOXICILLIN 500 MG ORAL CAPSULE 1 cap by mouth three times a day AMOXICILLIN 77646420983 No Longer Active Laurence Raida Acti ve DIFLUCAN 100 MG ORAL TABLET 1 tablet by mouth daily 20 19/08/26 FLUCONAZOLE 89156962917 No Longer Active Tesfaye Sherman MD Acti ve BACTRIM DS 800-160 MG ORAL TABLET 1 tab by mouth twice daily 201 05/10/28 TRIMETHOPRIM-SULFAMETHOXAZOLE 62661747261 No Longer Active Fer Dominguez Active FOSAMAX 70 MG ORAL TABLET 1 po qweek. Take 30min prio r to first food/drink. Avoid lying down x 1 hour. ALENDRONATE SODIUM 75591556 144 No Longer Active Laurence Dominguez Active CYMBALTA 60 MG ORAL CAPSULE DELAYED RELEASE PARTICLES Take 1 tablet by mouth daily DULOXETINE HCL 19709397798 No Longer Active Edith Burch MD Active CYMBALTA 30 MG ORAL CAPSULE DELAYED RELEASE PARTICLES 1 cap by mouth daily with 60mg DULOXETINE HCL 23314176685 No Longer Active Jordan Burch MD Active FISH OIL 1000 MG ORAL CAPSULE DELAYED RELEASE 1 pill b y mouth daily for cholesterol OMEGA-3 FATTY ACIDS 47523231749 Active Cee Jaffe LPN Active DIFLUCAN 100 MG ORAL TABLET 1 tablet by mouth daily 19/03/05 FLUCONAZOLE 87723061510 No Longer Active Tesfaye Sherman MD Acti ve BACTRIM DS 800-160 MG ORAL TABLET 1 tab by mouth twice daily 201 05/06/28 TRIMETHOPRIM-SULFAMETHOXAZOLE 63668684981 No Longer Active Umer Sherman MD Active BACTRIM DS 800-160 MG ORAL TABLET 1 tab by mouth twice daily 201 05/04/15 TRIMETHOPRIM-SULFAMETHOXAZOLE 72112911809 No Longer Active Umer Sherman MD Active DIFLUCAN 150 MG ORAL TABLET 1 tablet by mouth daily 18/09/20 FLUCONAZOLE 40373875730 No Longer Active Tesfaye Sherman MD Acti ve BACTRIM DS 800-160 MG ORAL TABLET 1 tab by mouth twice daily 201 04/13/17 TRIMETHOPRIM-SULFAMETHOXAZOLE 54216610098 No Longer Active Umer Sherman MD Active CEFTIN 250 MG ORAL TABLET 1 tablet twice daily x 7 days CEFUROXIME AXETIL 87785139739 No Longer Active Tesfaye Sherman MD Active DIFLUCAN 100 MG ORAL TABLET 1 tablet by mouth every other da y for 2 doses FLUCONAZOLE 02225750628 No Longer Active Tesfaye barron MD Active DIFLUCAN 100 MG ORAL TABLET 1 tablet by mouth daily X 3 DAYS 201 04/09/01 FLUCONAZOLE 11863040501 No Longer Active Rj Lyons tive MIRTAZAPINE 15 MG ORAL TABLET 1/2 tab by mouth at bedtime. 03/13 MIRTAZAPINE 04458000286 No Longer Active Tesfaye Sherman MD Active BACTRIM DS 800-160 MG ORAL TABLET 1 tab by mouth twice daily 201 04/09/01 TRIMETHOPRIM-SULFAMETHOXAZOLE 29384514336 No Longer Active Umer Sherman MD Active PRAMIPEXOLE DIHYDROCHLORIDE 0.125 MG ORAL TABLET take 1 tablet po qhs for restless leg syndrome. PRAMIPEXOLE DIHYDROCHLORI DE 59550797077 No Longer Active Tesfaye Sherman MD Active MAGNESIUM 400 MG ORAL TABLET 1 tab po daily MAGNE SIUM 62809193532 Active Chelsea Cardenas APRN Active CETIRIZINE HCL 5 MG ORAL TABLET Take 1 tablet by mouth daily CETIRIZINE HCL 99323647540 No Longer Active Chelsea Cardenas APRN Activ e TRIMETHOPRIM 100 MG ORAL TABLET 1/2 qd TRIM ETHOPRIM 97139321329 No Longer Active Chelsea Cardenas APRN Active BACTRIM DS 800-160 MG ORAL TABLET 1 tab by mouth twice daily 201 04/04/11 TRIMETHOPRIM-SULFAMETHOXAZOLE 54081126987 No Longer Active Umer Sherman MD Active BACTRIM DS 800-160 MG ORAL TABLET 1 tab by mouth twice daily X 10 DAYS TRIMETHOPRIM-SULFAMETHOXAZOLE 56994702063 No Longer Active Tesfaye Sherman MD Active AMOXICILLIN 500 MG ORAL CAPSULE 1 cap by mouth three times a day AMOXICILLIN 07937543421 No Longer Active Adriana Arredondo, Fer A ctive B-12 1000 MCG ORAL LOZENGE 1 tab po daily CYANO COBALAMIN 94751505647 Active Tesfaye Sherman MD Active VITAMIN D3 2000 UNIT ORAL TABLET 1 daily, for vitamin D deficien cy CHOLECALCIFEROL 17463530381 No Longer Active Tesfaye Sherman MD Active TIZANIDINE HCL 2 MG ORAL TABLET take 1-2 tablet by [facility] every day at bedtime at 9pm PRN TIZANIDINE HCL 46370586292 Active Tesfaye hewitt MD Active ZITHROMAX 250 MG ORAL TABLET 2 po today, then 1 po q days 2-5 20 15/02/10 AZITHROMYCIN 72385473366 No Longer Active Tesfaye Sherman MD Active BACTRIM DS 800-160 MG ORAL TABLET 1 tab by mouth twice daily 201 03/03/23 TRIMETHOPRIM-SULFAMETHOXAZOLE 41384372867 No Longer Active Umer Sherman MD Active [facility] NIACIN FLUSH FREE 400-100 MG ORAL CAPSULE 1 daily NIACIN-INOSITOL 07824044253 Active Kayla Cooper MD Activ e DIFLUCAN 150 MG ORAL TABLET 1 qd FLUCONAZOL E 54776688641 No Longer Active Kayla Cooper MD Active FLUTICASONE PROPIONATE 50 MCG/ACT NASAL SUSPENSION 1 spray each nostril twice daily FLUTICASONE PROPIONATE 87721600534 Active Umer Sherman MD Active LOVASTATIN 20 MG ORAL TABLET Take 1 tablet by mouth daily LOVASTATIN 39667351655 No Longer Active Tesfaye Sherman MD Acti ve MELOXICAM 7.5 MG ORAL TABLET 1 tablet by mouth daily 2 MELOXICAM 17741863807 No Longer Active Tesfaye Sherman MD Acti ve GABAPENTIN 300 MG ORAL CAPSULE Take two tablets by mouth every e vening GABAPENTIN 72755999295 No Longer Active Edith Burch MD A ctive BACLOFEN 10 MG ORAL TABLET Take one tablet by mouth three times a d ay BACLOFEN 92737062291 Active Kayla Cooper MD Active GABAPENTIN 300 MG ORAL CAPSULE Take two tablets by mouth every e vening GABAPENTIN 300 MG ORAL CAPSULE 795378 GABAPENTIN I nactive MELOXICAM 7.5 MG ORAL TABLET 1 tablet by mouth daily 2 MELOXICAM 7.5 MG ORAL TABLET 578428 MELOXICAM Inactive LOVASTATIN 20 MG ORAL TABLET Take 1 tablet by mouth daily LOVASTATIN 20 MG ORAL TABLET 074750 LOVASTATIN Inactive DIFLUCAN 150 MG ORAL TABLET 1 qd DIFLUCAN 150 MG ORAL TABLET 792904 FLUCONAZOLE Inactive VITAMIN D3 2000 UNIT ORAL TABLET 1 daily, for vitamin D deficien cy VITAMIN D3 2000 UNIT ORAL TABLET CHOLECALCIFEROL Inactive AMOXICILLIN 500 MG ORAL CAPSULE 1 cap by mouth three times a day AMOXICILLIN 500 MG ORAL CAPSULE 019588 AMOXICILLIN Inactive BACTRIM DS 800-160 MG ORAL TABLET 1 tab by mouth twice daily X 10 DAYS BACTRIM DS 800-160 MG ORAL TABLET 299000 TRIMETHOPRIM-SULFAMETHOXAZOLE Inactive TRIMETHOPRIM 100 MG ORAL TABLET 1/2 qd 7 TRIMETHOPRIM 100 MG ORAL TABLET 155234 TRIMETHOPRIM Inactive CETIRIZINE HCL 5 MG ORAL TABLET Take 1 tablet by mouth daily CETIRIZINE HCL 5 MG ORAL TABLET 5790200 CETIRIZINE HCL Inactive PRAMIPEXOLE DIHYDROCHLORIDE 0.125 MG ORAL TABLET take 1 tablet po qhs for restless leg syndrome. PRAMIPEXOLE DIHYD ROCHLORIDE 0.125 MG ORAL TABLET 754234 PRAMIPEXOLE DIHYDROCHLORIDE Inactive MIRTAZAPINE 15 MG ORAL TABLET 1/2 tab by mouth at bedtime. 03/13 MIRTAZAPINE 15 MG ORAL TABLET 983090 MIRTAZAPINE In active DIFLUCAN 100 MG ORAL TABLET 1 tablet by mouth daily X 3 DAYS 201 04/09/01 DIFLUCAN 100 MG ORAL TABLET 370211 FLUCONAZOLE Inac tive DIFLUCAN 100 MG ORAL TABLET 1 tablet by mouth every other da y for 2 doses DIFLUCAN 100 MG ORAL TABLET 603895 FLUCONAZOLE Inactive CEFTIN 250 MG ORAL TABLET 1 tablet twice daily x 7 days CEFTIN 250 MG ORAL TABLET CEFUROXIME AXETIL Inactive CYMBALTA 30 MG ORAL CAPSULE DELAYED RELEASE PARTICLES 1 cap by mouth daily with 60mg CYMBALTA 30 MG ORAL CAPSULE DELAYED RELEASE PARTICLES 623184 DULOXETINE HCL Inactive CYMBALTA 60 MG ORAL CAPSULE DELAYED RELEASE PARTICLES Take 1 tablet by mouth daily CYMBALTA 60 MG ORAL CAPSULE DELAYED RELEA SE PARTICLES 952859 DULOXETINE HCL Inactive FOSAMAX 70 MG ORAL TABLET 1 po qweek. Take 30min prio r to first food/drink. Avoid lying down x 1 hour. FOSAMAX 70 MG ORAL TA BLET 575198 ALENDRONATE SODIUM Inactive DIFLUCAN 100 MG ORAL TABLET 1 tablet by mouth daily 19/08/26 DIFLUCAN 100 MG ORAL TABLET 780501 FLUCONAZOLE Inactive PREDNISONE 20 MG ORAL TABLET 1 tab twice daily for 3 d ay, then one daily for three days PREDNISONE 20 MG ORAL TABLET 208186 PREDNIS ONE Inactive PROAIR HFA 108 (90 BASE) MCG/ACT INHALATION AEROSOL SO LUTION 1 puff every 6 hours as needed PROAIR HFA 108 (90 B ASE) MCG/ACT INHALATION AEROSOL SOLUTION ALBUTEROL SULFATE Inactive MECLIZINE HCL 25 MG ORAL TABLET one tab po qday prn dizziness 20 17/09/06 MECLIZINE HCL 25 MG ORAL TABLET 886259 MECLIZINE HCL Inactive PREDNISONE 20 MG ORAL TABLET 1 tablet by mouth twice d aily for 3 days, then 1 tablet daily for 3 days PREDNISONE 20 MG ORAL TA BLET 786285 PREDNISONE Inactive DIFLUCAN 100 MG ORAL TABLET 1 tablet by mouth daily 20 20/06/06 DIFLUCAN 100 MG ORAL TABLET 087836 FLUCONAZOLE Inactive REPHRESH PRO-B ORAL CAPSULE 1 tablet daily REPHRESH PRO-B ORAL CAPSULE LACTOBACILLUS Inactive RED YEAST RICE 600 MG ORAL CAPSULE 1 pill by mouth daily RED YEAST RICE 600 MG ORAL CAPSULE 811658 RED YEAST RICE EXTRACT In active SUDAFED [...] 20 19/02/09 DIFLUCAN 100 MG ORAL TABLET 232971 FLUCONAZOLE Inactive DIFLUCAN 100 MG ORAL TABLET 1 tablet by mouth daily 20 19/02/09 DIFLUCAN 100 MG ORAL TABLET 251193 FLUCONAZOLE Inactive VENLAFAXINE HCL 75 MG ORAL TABLET 1 am 1/2 at noon 201 07/07/09 VENLAFAXINE HCL 75 MG ORAL TABLET 596626 VENLAFAXINE HCL Inacti ve GABAPENTIN 300 MG ORAL CAPSULE 1 po daily GABAPENTIN 300 MG ORAL CAPSULE 084639 GABAPENTIN Inactive SUDAFED 12 HOUR 120 MG ORAL TABLET EXTENDED RELEASE 12 HOUR 1 pill twice daily if needed for congestion SUDAFED 12 HOUR 120 MG ORAL TABLET EXTENDED RELEASE 12 HOUR PSEUDOEPHEDRINE HCL Inactive AMITRIPTYLINE HCL 10 MG ORAL TABLET 1 tablet nightly by mout h for neuropathy AMITRIPTYLINE HCL 10 MG ORAL TABLET 948262 AMITRIPTYLINE HCL Inactive AMITRIPTYLINE HCL 50 MG ORAL TABLET 1 po q hs for sleep AMITRIPTYLINE HCL 50 MG ORAL TABLET 559002 AMITRIPTYLINE HCL Inac tive PREDNISONE 20 MG ORAL TABLET 1 tab twice daily for 3 d ay, then one daily for three days PREDNISONE 20 MG ORAL TABLET 835600 PREDNIS ONE Inactive ROPINIROLE HCL 0.25 MG ORAL TABLET 1 TAB PO Q HS 05/31 ROPINIROLE HCL 0.25 MG ORAL TABLET 756596 ROPINIROLE HCL Inact trent ROPINIROLE HCL 0.5 MG ORAL TABLET 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 ROPINIROLE HCL 0.5 MG ORAL TABLET 902859 ROPINIR OLE HCL Inactive ROPINIROLE HCL 1 MG ORAL TABLET 1 tab po q hs ROPINIROLE HCL 1 MG ORAL TABLET 367754 ROPINIROLE HCL Inactive ROPINIROLE HCL 2 MG ORAL TABLET 1 po at hs 7 ROPINIROLE HCL 2 MG ORAL TABLET 173961 ROPINIROLE HCL Inactive MIRAPEX 0.125 MG ORAL TABLET 1 po nightly MIRAPEX 0.125 MG ORAL TABLET 067328 PRAMIPEXOLE DIHYDROCHLORIDE Inactive MIRAPEX 0.25 MG ORAL TABLET 1 tablet by mouth at night for r estless leg MIRAPEX 0.25 MG ORAL TABLET 030307 PRAM IPEXOLE DIHYDROCHLORIDE Inactive HYDROXYZINE HCL 25 MG ORAL TABLET 1 tab po at HS prn sleep 08/02 HYDROXYZINE HCL 25 MG ORAL TABLET 098605 HYDROXYZINE HC L Inactive DIFLUCAN 100 MG ORAL TABLET 1 tablet by mouth daily 21/08/28 DIFLUCAN 100 MG ORAL TABLET 784375 FLUCONAZOLE Inactive BACTRIM DS 800-160 MG ORAL TABLET 1 tab by mouth twice daily 201 03/03/23 BACTRIM DS 800-160 MG ORAL TABLET 299783 TRIMETHOPRIM-SULFAMETHOXAZOLE Inactive ZITHROMAX 250 MG ORAL TABLET 2 po today, then 1 po q days 2-5 20 15/02/10 ZITHROMAX 250 MG ORAL TABLET 795662 AZITHROMYCIN Mayela ctive BACTRIM DS 800-160 MG [...] ORAL TABLET 1 tablet by mouth daily 18/09/20 DIFLUCAN 150 MG ORAL TABLET 19760712 [...] 20 19/03/05 DIFLUCAN 100 MG ORAL TABLET 011438 FLUCONAZOLE Inactive BACTRIM DS 800-160 MG ORAL TABLET 1 tab by mouth twice daily 201 05/10/28 BACTRIM DS 800-160 MG ORAL TABLET 19830105 TRIMETHOPRIM-SULFAMETHOXAZOLE Inactive AMOXICILLIN 500 MG ORAL CAPSULE 1 cap by mouth three times a day AMOXICILLIN 500 MG ORAL CAPSULE 009357 AMOXICILLIN Inactive ZITHROMAX 250 MG ORAL TABLET 2 po today, then 1 po q days 2-5 20 20/04/28 ZITHROMAX 250 MG ORAL TABLET 549768 AZITHROMYCIN Mayela ctive DIFLUCAN 100 MG ORAL TABLET 1 tablet by mouth daily 20 20/05/01 DIFLUCAN 100 MG ORAL TABLET 19760711 FLUCONAZOLE Inactive BACTRIM DS 800-160 MG ORAL TABLET 1 tab by mouth twice daily 201 06/09/02 BACTRIM DS 800-160 MG ORAL TABLET 19830105 TRIMETHOPRIM-SULFAMETHOXAZOLE Inactive HYDROCHLOROTHIAZIDE 12.5 MG ORAL CAPSULE 1 pill by mough daily 2 HYDROCHLOROTHIAZIDE 12.5 MG ORAL CAPSULE HYDROCH LOROTHIAZIDE Inactive BACTRIM DS 800-160 MG ORAL TABLET 1 tab by mouth twice daily 201 07/08/06 BACTRIM DS 800-160 MG ORAL TABLET 256525 TRIMETHOPRIM-SULFAMETHOXAZOLE Inactive DIFLUCAN 100 MG ORAL TABLET 1 tablet by mouth daily 20 21/03/11 DIFLUCAN 100 MG ORAL TABLET 022378 FLUCONAZOLE Inactive ZITHROMAX 250 MG ORAL TABLET 2 po today, then 1 po q days 2-5 20 21/08/28 ZITHROMAX 250 MG ORAL TABLET 128228 AZITHROMYCIN Mayela ctive FLUCONAZOLE 100 MG ORAL TABLET 1 by mouth daily for yeast infect ion FLUCONAZOLE 100 MG ORAL TABLET 19760711 FLUCONAZOLE I nactive Advance Directives Directive Description Start Date PERMISSION TO SHARE DISCUSSED WITH PATIENT -- NO DECISION MADE DISCUSED WITH PATIENT -- FULL CODE LIVING WILL ON FILE DURABLE POWER OF SATELLITE MANAGER FOR HEALTHCARE Vital Signs Date Name Value [...] Magnesium - Chemistry cholesterol, serum 196 mg/dL [phone]/07/30 triglyceride, serum, fasting 86 mg/dL 30-200 HDL cholesterol, serum 41 mg/dL 32-60 LDL cholesterol, serum 138 mg/dL 0-130 sodium, serum 140 mmol/L 190-250 9235/07/30 carbon dioxide, venous blood 28.6 mmol/L 21.0-32 [...] Magnesium - Lab Alkaline phosphatase 81 50-136 Encounters Code Encounter Date Provider Facility CPT-94162 [id number] Vst-Est Level IV 11:39:[address] Tesfaye Sherman MD [facility] CPT-06228 [id number] Vst-Est Level IV 14:08:03 C BRIDGET Sherman MD [facility] CPT-41906 Level 3 Est. Patient 18:06:36 CDT Tesfaye pearson MD [facility] CPT-46538 [id number] Vst-Est Level IV 17:09:34 C BRIDGET Sherman MD [facility] CPT-74334 Level 3 Est. Patient 17:27:08 CDT León hernandez NONPROFIT FUNDRAISER [facility] CPT-96204 [id number] Vst-Est Level IV 14:00:[address] Tesfaye Sherman MD [facility]-66888 [id number] Vst-Est Level IV 19:27:[address] Tesfaye Sherman MD [facility]-26228 [id number] Vst-Est Level IV 10:41:41 C BRIDGET Sherman MD [facility]-46589 [id number] Vst-Est Level III 09:40:56 CDT Tesfaye Sherman MD [facility] CPT-80967 Level 4 Est. Patient 22:18:12 CDT Tesfaye pearson MD [facility]-49282 Level 4 Est. Patient 14:44:33 PRIMARY CLASS TEACHER Tesfaye pearson MD [facility]-82271 Level 4 Est. Patient 13:55:29 PRIMARY CLASS TEACHER Tesfaye pearson MD [facility] CPT-17110 Level 4 Est. Patient 17:07:34 PRIMARY CLASS TEACHER Tesfaye pearson MD [facility] CPT-31068 Level 4 Est. Patient 13:56:54 CDT Tesfaye pearson MD [facility] CPT-09348 Level 4 Est. Patient 13:24:25 CDT Chelsea sanz APRN [facility] CPT-70381 Level 4 Est. Patient 09:14:56 CDT Tesfaye pearson MD [facility] CPT-29390 Level 4 Est. Patient 18:40:25 PRIMARY CLASS TEACHER Tesfaye pearson MD [facility] CPT-12410 Level 4 Est. Patient 18:13:07 PRIMARY CLASS TEACHER Tesfaye pearson MD [facility] CPT-08365 Level 3 Est. Patient 10:46:32 CDT Rj cotto DO [facility] CPT-41080 Level 4 Est. Patient 20:19:25 CDT Tesfaye pearson MD [facility]-14336 Level 3 Est. Patient 09:07:31 CDT Tesfaye pearson MD [facility]-69291 Level 4 Est. Patient 13:12:56 CDT Tesfaye pearson MD [facility]-78547 Level 4 Est. Patient 21:24:55 PRIMARY CLASS TEACHER Tesfaye pearson MD [facility]-53279 Level 3 Est. Patient 13:45:04 PRIMARY CLASS TEACHER Tesfaye pearson MD [facility] CPT-43279 Level 4 Est. Patient 13:50:45 CDT Tesfaye pearson MD [facility] CPT-65619 Level 3 Est. Patient 10:16:10 CDT Tesfaye pearson MD [facility] CPT-34672 Level 3 Est. Patient 16:36:07 PRIMARY CLASS TEACHER Kayla jameson MD [facility]-67787 Level 4 Est. Patient 16:00:14 PRIMARY CLASS TEACHER Tesfaye pearson MD [facility] CPT-79965 Level 4 Est. Patient 11:02:24 PRIMARY CLASS TEACHER Tesfaye pearson MD [facility]-05135 Level 3 Est. Patient 20:21:43 PRIMARY CLASS TEACHER Kayla jameson MD [facility] CPT-66517 Level 3 Est. Patient 13:27:28 PRIMARY CLASS TEACHER Kayla jameson MD [facility]-00774 Level 4 Est. Patient 15:57:17 PRIMARY CLASS TEACHER Tesfaye pearson MD [facility] CPT-24588 Level 3 New Patient 13:25:47 CDT Tesfaye kidd MD [facility] CPT-95312 Level 3 New Patient 17:22:21 CDT Kayla angel MD [facility] Procedures Code Procedure Name Date Entry Date Standard Desc ription CPT-85435 Bone Density - XRAY USE ONLY 15:21:33 CDT 2 CPT-75941 Venipuncture Draw Fee 16:12:22 CDT CPT-G0439 Subsequent Annual Wellness Exam 18:06:36 CDT CPT-G0439 Subsequent Annual Wellness Exam 22:18:11 CDT CPT-90278 Bone Density - XRAY USE ONLY 11:43:58 CDT 2 CPT-08326 Bone Density - XRAY USE ONLY 10:05:16 CDT 2 CPT-70767 Prv Med New Pt 40-64 yrs 18:19:25 CDT 2016 CPT-33572 Foot, right, comp min 3V - XRAY USE ONLY 10:38:34 CDT CPT-G0439 Subsequent Annual Wellness Exam 13:55:04 CDT CPT-G0438 Initial Annual Wellness Exam 11:23:17 CD T CPT-J2930 Solu Medrol 125 mg (Methyl Prednisolone Sodium Succinate) 17:29:12 PRIMARY CLASS TEACHER CPT-66499 Abx/Therapy Injection 17:29:11 PRIMARY CLASS TEACHER CPT-J2930 Solu Medrol 125 mg (Methyl Prednisolone Sodium Succinate) 12:34:38 PRIMARY CLASS TEACHER CPT-J3420 Vitamin B12 1000mcg (Cyanocobalamin) 09:12:55 CDT CPT-J3420 Vitamin B12 1000mcg (Cyanocobalamin) 16:28:06 PRIMARY CLASS TEACHER CPT-99866 Venipuncture Draw Fee 08:39:53 CDT CPT-J3420 Vitamin B12 1000mcg (Cyanocobalamin) 08:46:22 CDT CPT-16090 Abx/Therapy Injection 08:46:22 CDT CPT-J3420 Vitamin B12 1000mcg (Cyanocobalamin) 08:41:26 CDT CPT-11168 Abx/Therapy Injection 08:41:26 CDT CPT-J3420 Vitamin B12 1000mcg (Cyanocobalamin) 08:57:15 CDT CPT-98822 Abx/Therapy Injection 08:57:15 CDT CPT-J3420 Vitamin B12 1000mcg (Cyanocobalamin) 10:59:03 CDT CPT-65564 Abx/Therapy Injection 10:59:03 CDT CPT-J3420 Vitamin B12 1000mcg (Cyanocobalamin) 15:05:39 CDT CPT-71291 Abx/Therapy Injection 15:05:39 CDT CPT-J3420 Vitamin B12 1000mcg (Cyanocobalamin) 13:50:45 CDT CPT-J3420 Vitamin B12 1000mcg (Cyanocobalamin) 08:48:55 CDT CPT-75023 Abx/Therapy Injection 08:48:55 CDT CPT-J3420 Vitamin B12 1000mcg (Cyanocobalamin) 09:14:54 CDT CPT-94016 Abx/Therapy Injection 09:14:54 CDT CPT-J3420 Vitamin B12 1000mcg (Cyanocobalamin) 09:06:06 CDT CPT-47570 Abx/Therapy Injection 09:06:06 CDT CPT-J3420 Vitamin B12 1000mcg (Cyanocobalamin) 09:49:14 CDT CPT-28773 Abx/Therapy Injection 09:49:14 CDT CPT-J3420 Vitamin B12 1000mcg (Cyanocobalamin) 09:10:30 PRIMARY CLASS TEACHER CPT-85353 Abx/Therapy Injection 09:10:30 PRIMARY CLASS TEACHER CPT-J3420 Vitamin B12 1000mcg (Cyanocobalamin) 09:11:07 PRIMARY CLASS TEACHER CPT-65881 Abx/Therapy Injection 09:11:07 PRIMARY CLASS TEACHER CPT-J3420 Vitamin B12 1000mcg (Cyanocobalamin) 09:57:03 PRIMARY CLASS TEACHER CPT-72134 Abx/Therapy Injection 09:57:03 PRIMARY CLASS TEACHER CPT-J3420 Vitamin B12 1000mcg (Cyanocobalamin) 09:23:21 PRIMARY CLASS TEACHER CPT-89430 Abx/Therapy Injection 09:23:21 PRIMARY CLASS TEACHER CPT-07437 Urine Dip (Floor Use Only) 20:21:44 PRIMARY CLASS TEACHER 201 02/12/11 CPT-66359 UA Dip Auto (Floor Use Only) 10:04:39 PRIMARY CLASS TEACHER 2 CPT-78560 Urine Dip (Floor Use Only) 13:27:28 PRIMARY CLASS TEACHER 201 02/12/01 CPT-07274 Bladder Scan 13:27:28 PRIMARY CLASS TEACHER CPT-36338 Abd single AP View 14:30:51 PRIMARY CLASS TEACHER CPT-OV Office Visit 10:15:43 CDT CPT-56412 Urine Dip (Floor Use Only) 17:22:21 CDT 201 02/09/02 CPT-61843 Bladder Scan 17:22:21 CDT
--- OUTSIDE RECORDS SUMMARY | 2020-05-05 11:07 | XMS REPORT | Clinical Summary ---
Author Author Talon, Jeri Wood Organization [facility] Address Unknown Phone Unavailable Allergies, Adverse Reactions, [...] Routine general medical examination at [facility] acility Sinusitis 461.9 Resolved Tesfaye Sherman [...] Tesfaye Sherman MD Dysuria High risk meds [facility] use V58.6 Active Tesfaye Sherman MD Long-term (current) drug use Yeast infection 112.9 Inactive Tesfaye Sherman MD Candidiasis of unspecified site Upper respiratory infection 465.9 Inactive Tesfaye Sherman MD Acute upper respiratory infections of un specified site Lower extremity edema, bilateral 782.3 Active 201 07/07/09 León Kodi LIFT BUILDER WHOLE Edema Peripheral neuropathy 356.9 Active Tesfaye lamb [...] B EDTIME NEEDED FOR SLEEP HYDROXYZINE HCL 17732782596 Active JOSHUA Lindsay Active FLUCONAZOLE 100 MG ORAL TABLET 1 by mouth daily for yeast infect ion FLUCONAZOLE 57573667771 No Longer Active Laurence Dominguez Acti ve PREDNISONE 20 MG ORAL TABLET 1 tab twice daily for 3 d ay, then one daily for three days PREDNISONE 64280659203 Active Tesfaye Sherman MD Active ZITHROMAX 250 MG ORAL TABLET 2 po today, then 1 po q days 2-5 20 21/08/28 AZITHROMYCIN 53926498291 No Longer Active Tesfaye Sherman MD Active DIFLUCAN 100 MG ORAL TABLET 1 tablet by mouth daily 20 21/08/28 FLUCONAZOLE 90580054977 No Longer Active Tesfaye Sherman MD Acti ve UNISOM SLEEPMELTS 25 MG ORAL TABLET DISINTEGRATING 1.5 po q hs 201 07/13/28 DIPHENHYDRAMINE HCL (SLEEP) 42061784992 Active Tesfaye Sherman MD Active HYDROXYZINE HCL 25 MG ORAL TABLET 1 tab po at HS prn sleep 08/02 HYDROXYZINE HCL 03507230403 No Longer Active Tesfaye Sherman MD Active MIRAPEX 0.5 MG ORAL TABLET 1 tablet at night for restless leg. 2018 PRAMIPEXOLE DIHYDROCHLORIDE 58210074383 Active Laurenceyohana Dominguez Active MIRAPEX 0.25 MG ORAL TABLET 1 tablet by mouth at night for r estless leg PRAMIPEXOLE DIHYDROCHLORIDE 29337505012 No Longer Act trent Laurence Raida Active MIRAPEX 0.125 MG ORAL TABLET 1 po nightly PRAMIPEXOLE DIHYDROCHLORIDE 14901785595 No Longer Active Laurence Lopezduyen Active ROPINIROLE HCL 2 MG ORAL TABLET 1 po at hs ROPI NIROLE HCL 47982368012 No Longer Active Laurenceyohana Dominguez Active ROPINIROLE HCL 1 MG ORAL TABLET 1 tab po q hs ROPINIROLE HCL 71656973363 No Longer Active Laurenceyohana Dominguez Active ROPINIROLE HCL 0.5 MG ORAL TABLET 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 ROPINIROLE HCL 06846345280 No Longer Active MARCUS Panchal Active ROPINIROLE HCL 0.25 MG ORAL TABLET 1 TAB PO Q HS 05/31 ROPINIROLE HCL 67222099117 No Longer Active Tesfaye Sherman MD Ac tive PREDNISONE 20 MG ORAL TABLET 1 tab twice daily for 3 d ay, then one daily for three days PREDNISONE 47073712146 No Longer Active Tesfaye Sherman MD Active AMITRIPTYLINE HCL 50 MG ORAL TABLET 1 po q hs for sleep AMITRIPTYLINE HCL 32654706792 No Longer Active Tesfaye Sherman MD Active AMITRIPTYLINE HCL 10 MG ORAL TABLET 1 tablet nightly by mout h for neuropathy AMITRIPTYLINE HCL 61320347581 No Longer Active MARCUS Stapleton Active DIFLUCAN 100 MG ORAL TABLET 1 tablet by mouth daily 20 21/03/11 FLUCONAZOLE 90867822879 No Longer Active Tesfaye Sherman MD Acti ve BACTRIM DS 800-160 MG ORAL TABLET 1 tab by mouth twice daily 201 07/08/06 TRIMETHOPRIM-SULFAMETHOXAZOLE 78279448476 No Longer Active Umer Sherman MD Active CLARITIN 10 MG ORAL TABLET Take one by mouth daily LORATADINE 74395338673 Active Tesfaye Sherman MD Active SUDAFED 12 HOUR 120 MG ORAL TABLET EXTENDED RELEASE 12 HOUR 1 pill twice daily if needed for congestion PSEUDOEPHEDRINE HCL 060993975 13 No Longer Active Tesfaye Sherman MD Active FENOFIBRATE 145 MG ORAL TABLET 1 by mouth daily FENOFIBRATE 88329860748 Active Laurence Dominguez Active GABAPENTIN 300 MG ORAL CAPSULE 1 po daily GABAP ENTIN 00091254098 No Longer Active Tesfaye Sherman MD Active HYDROCHLOROTHIAZIDE 12.5 MG ORAL CAPSULE 1 pill by mough daily 2 HYDROCHLOROTHIAZIDE 95716109466 No Longer Active León Mariee APRN Active VENLAFAXINE HCL 75 MG ORAL TABLET 1 am 1/2 at noon 201 07/07/09 VENLAFAXINE HCL 21409163266 No Longer Active León Kodi LIFT BUILDER WHOLE Act trent DIFLUCAN 100 MG ORAL TABLET 1 tablet by mouth daily 20 19/02/09 FLUCONAZOLE 55479265560 No Longer Active León Kodi LIFT BUILDER WHOLE Active DIFLUCAN 100 MG ORAL TABLET 1 tablet by mouth daily 19/02/09 FLUCONAZOLE 71879050565 No Longer Active León Kodidavid MERCADO Active OXYCODONE-ACETAMINOPHEN 5-325 MG ORAL TABLET Take one tablet by mouth every 6 hours 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 Use sparingly OXYCODONE-ACETAMINOPHEN 93848898898 Active Tesfaye villar MD Active CLONAZEPAM 0.5 MG ORAL TABLET Take 1/2 qam, and 1/2 qpm CLONAZEPAM 77344991823 Active Tesfaye Sherman MD Active PRELIEF 340 (65-50) MG (CA-P) ORAL TABLET CALCIUM GLYCEROPHOSPHATE 45172674810 No Longer Active Tesfaye Sherman MD Active SUDAFED 24 HOUR 240 MG ORAL TABLET EXTENDED RELEASE 24 HOUR 1 tab po daily PSEUDOEPHEDRINE HCL 72521946525 No Longer Active Raul Sherman MD Active RED YEAST RICE 600 MG ORAL CAPSULE 1 pill by mouth daily RED YEAST RICE EXTRACT 18063546409 No Longer Active Tesfaye Sherman MD Active REPHRESH PRO-B ORAL CAPSULE 1 tablet daily LACT OBACILLUS 55846296279 No Longer Active Tesfaye Sherman MD Active ABILIFY 2 MG ORAL TABLET 1 by mouth daily. MARIA ELENA PIPRAZOLE 33024282201 Active Tesfaye Sherman MD Active CYMBALTA 60 MG ORAL CAPSULE DELAYED RELEASE PARTICLES 1 cap by mouth daily for pain DULOXETINE HCL 54928708448 Active MARCUS Lindsay Active DIFLUCAN 100 MG ORAL TABLET 1 tablet by mouth daily 20 20/06/06 FLUCONAZOLE 22312524749 No Longer Active Tesfaye Sherman MD Acti ve PREDNISONE 20 MG ORAL TABLET 1 tablet by mouth twice d aily for 3 days, then 1 tablet daily for 3 days PREDNISONE 23420413801 No L onger Active Tesfaye Sherman MD Active BACTRIM DS 800-160 MG ORAL TABLET 1 tab by mouth twice daily 201 06/09/02 TRIMETHOPRIM-SULFAMETHOXAZOLE 98043143541 No Longer Active Fer Dominguez Active DIFLUCAN 100 MG ORAL TABLET 1 tablet by mouth daily 20 20/05/01 FLUCONAZOLE 24651201059 No Longer Active Tesfaye Sherman MD Acti ve ZITHROMAX 250 MG ORAL TABLET 2 po today, then 1 po q days 2-5 20 20/04/28 AZITHROMYCIN 94460682905 No Longer Active Tesfaye Sherman MD Active MECLIZINE HCL 25 MG ORAL TABLET one tab po qday prn dizziness 20 17/09/06 MECLIZINE HCL 55480537448 No Longer Active Tesfaye Sherman MD Active PROAIR HFA 108 (90 BASE) MCG/ACT INHALATION AEROSOL SO LUTION 1 puff every 6 hours as needed ALBUTEROL SULFATE 00916917503 No Long er Active Tesfaye Sherman MD Active PREDNISONE 20 MG ORAL TABLET 1 tab twice daily for 3 d ay, then one daily for three days PREDNISONE 94577031779 No Longer Active Tesfaye Sherman MD Active MECLIZINE HCL 25 MG ORAL TABLET one 4 times a day as needed for dizziness MECLIZINE HCL 25223186915 Active Tesfaye Sherman MD Active AMOXICILLIN 500 MG ORAL CAPSULE 1 cap by mouth three times a day AMOXICILLIN 66685719769 No Longer Active Laurence Raida Acti ve DIFLUCAN 100 MG ORAL TABLET 1 tablet by mouth daily 20 19/08/26 FLUCONAZOLE 02565947365 No Longer Active Tesfaye Sherman MD Acti ve BACTRIM DS 800-160 MG ORAL TABLET 1 tab by mouth twice daily 201 05/10/28 TRIMETHOPRIM-SULFAMETHOXAZOLE 03994134770 No Longer Active Fer Dominguez Active FOSAMAX 70 MG ORAL TABLET 1 po qweek. Take 30min prio r to first food/drink. Avoid lying down x 1 hour. ALENDRONATE SODIUM 08492639 144 No Longer Active Laurence Dominguez Active CYMBALTA 60 MG ORAL CAPSULE DELAYED RELEASE PARTICLES Take 1 tablet by mouth daily DULOXETINE HCL 89279092319 No Longer Active Edith Burch MD Active CYMBALTA 30 MG ORAL CAPSULE DELAYED RELEASE PARTICLES 1 cap by mouth daily with 60mg DULOXETINE HCL 81864928885 No Longer Active Jordan Burch MD Active FISH OIL 1000 MG ORAL CAPSULE DELAYED RELEASE 1 pill b y mouth daily for cholesterol OMEGA-3 FATTY ACIDS 61661598268 Active Cee Jaffe LPN Active DIFLUCAN 100 MG ORAL TABLET 1 tablet by mouth daily 19/03/05 FLUCONAZOLE 74475889729 No Longer Active Tesfaye Sherman MD Acti ve BACTRIM DS 800-160 MG ORAL TABLET 1 tab by mouth twice daily 201 05/06/28 TRIMETHOPRIM-SULFAMETHOXAZOLE 98642744709 No Longer Active Umer Sherman MD Active BACTRIM DS 800-160 MG ORAL TABLET 1 tab by mouth twice daily 201 05/04/15 TRIMETHOPRIM-SULFAMETHOXAZOLE 90819465168 No Longer Active Umer Sherman MD Active DIFLUCAN 150 MG ORAL TABLET 1 tablet by mouth daily 18/09/20 FLUCONAZOLE 93715002002 No Longer Active Tesfaye Sherman MD Acti ve BACTRIM DS 800-160 MG ORAL TABLET 1 tab by mouth twice daily 201 04/13/17 TRIMETHOPRIM-SULFAMETHOXAZOLE 24440975136 No Longer Active Umer Sherman MD Active CEFTIN 250 MG ORAL TABLET 1 tablet twice daily x 7 days CEFUROXIME AXETIL 76736601984 No Longer Active Tesfaye Sherman MD Active DIFLUCAN 100 MG ORAL TABLET 1 tablet by mouth every other da y for 2 doses FLUCONAZOLE 44366756885 No Longer Active Tesfaye barron MD Active DIFLUCAN 100 MG ORAL TABLET 1 tablet by mouth daily X 3 DAYS 201 04/09/01 FLUCONAZOLE 96295604190 No Longer Active Rj Lyons tive MIRTAZAPINE 15 MG ORAL TABLET 1/2 tab by mouth at bedtime. 03/13 MIRTAZAPINE 28021672042 No Longer Active Tesfaye Sherman MD Active BACTRIM DS 800-160 MG ORAL TABLET 1 tab by mouth twice daily 201 04/09/01 TRIMETHOPRIM-SULFAMETHOXAZOLE 40725597584 No Longer Active Umer Sherman MD Active PRAMIPEXOLE DIHYDROCHLORIDE 0.125 MG ORAL TABLET take 1 tablet po qhs for restless leg syndrome. PRAMIPEXOLE DIHYDROCHLORI DE 42696734817 No Longer Active Tesfaye Sherman MD Active MAGNESIUM 400 MG ORAL TABLET 1 tab po daily MAGNE SIUM 29115212342 Active Chelsea Cardenas APRN Active CETIRIZINE HCL 5 MG ORAL TABLET Take 1 tablet by mouth daily CETIRIZINE HCL 06220085389 No Longer Active Chelsea Cardenas APRN Activ e TRIMETHOPRIM 100 MG ORAL TABLET 1/2 qd TRIM ETHOPRIM 05786783700 No Longer Active Chelsea Cardenas APRN Active BACTRIM DS 800-160 MG ORAL TABLET 1 tab by mouth twice daily 201 04/04/11 TRIMETHOPRIM-SULFAMETHOXAZOLE 67892038642 No Longer Active Umer Sherman MD Active BACTRIM DS 800-160 MG ORAL TABLET 1 tab by mouth twice daily X 10 DAYS TRIMETHOPRIM-SULFAMETHOXAZOLE 32382612405 No Longer Active Tesfaye Sherman MD Active AMOXICILLIN 500 MG ORAL CAPSULE 1 cap by mouth three times a day AMOXICILLIN 73699197181 No Longer Active Adriana Arredondo, Fer A ctive B-12 1000 MCG ORAL LOZENGE 1 tab po daily CYANO COBALAMIN 67806245874 Active Tesfaye Sherman MD Active VITAMIN D3 2000 UNIT ORAL TABLET 1 daily, for vitamin D deficien cy CHOLECALCIFEROL 25857250958 No Longer Active Tesfaye Sherman MD Active TIZANIDINE HCL 2 MG ORAL TABLET take 1-2 tablet by [facility] every day at bedtime at 9pm PRN TIZANIDINE HCL 53744583893 Active Tesfaye hewitt MD Active ZITHROMAX 250 MG ORAL TABLET 2 po today, then 1 po q days 2-5 20 15/02/10 AZITHROMYCIN 37566457908 No Longer Active Tesfaye Sherman MD Active BACTRIM DS 800-160 MG ORAL TABLET 1 tab by mouth twice daily 201 03/03/23 TRIMETHOPRIM-SULFAMETHOXAZOLE 66046322636 No Longer Active Umer Sherman MD Active [facility] NIACIN FLUSH FREE 400-100 MG ORAL CAPSULE 1 daily NIACIN-INOSITOL 35729384338 Active Kayla Cooper MD Activ e DIFLUCAN 150 MG ORAL TABLET 1 qd FLUCONAZOL E 46476134800 No Longer Active Kayla Cooper MD Active FLUTICASONE PROPIONATE 50 MCG/ACT NASAL SUSPENSION 1 spray each nostril twice daily FLUTICASONE PROPIONATE 42073019782 Active Umer Sherman MD Active LOVASTATIN 20 MG ORAL TABLET Take 1 tablet by mouth daily LOVASTATIN 22326253600 No Longer Active Tesfaye Sherman MD Acti ve MELOXICAM 7.5 MG ORAL TABLET 1 tablet by mouth daily 2 MELOXICAM 57860533833 No Longer Active Tesfaye Sherman MD Acti ve GABAPENTIN 300 MG ORAL CAPSULE Take two tablets by mouth every e vening GABAPENTIN 01440109004 No Longer Active Edith Burch MD A ctive BACLOFEN 10 MG ORAL TABLET Take one tablet by mouth three times a d ay BACLOFEN 34149523828 Active Kayla Cooper MD Active GABAPENTIN 300 MG ORAL CAPSULE Take two tablets by mouth every e vening GABAPENTIN 300 MG ORAL CAPSULE 003436 GABAPENTIN I nactive MELOXICAM 7.5 MG ORAL TABLET 1 tablet by mouth daily 2 MELOXICAM 7.5 MG ORAL TABLET 112427 MELOXICAM Inactive LOVASTATIN 20 MG ORAL TABLET Take 1 tablet by mouth daily LOVASTATIN 20 MG ORAL TABLET 157373 LOVASTATIN Inactive DIFLUCAN 150 MG ORAL TABLET 1 qd DIFLUCAN 150 MG ORAL TABLET 702203 FLUCONAZOLE Inactive VITAMIN D3 2000 UNIT ORAL TABLET 1 daily, for vitamin D deficien cy VITAMIN D3 2000 UNIT ORAL TABLET CHOLECALCIFEROL Inactive AMOXICILLIN 500 MG ORAL CAPSULE 1 cap by mouth three times a day AMOXICILLIN 500 MG ORAL CAPSULE 833478 AMOXICILLIN Inactive BACTRIM DS 800-160 MG ORAL TABLET 1 tab by mouth twice daily X 10 DAYS BACTRIM DS 800-160 MG ORAL TABLET 947881 TRIMETHOPRIM-SULFAMETHOXAZOLE Inactive TRIMETHOPRIM 100 MG ORAL TABLET 1/2 qd 7 TRIMETHOPRIM 100 MG ORAL TABLET 969028 TRIMETHOPRIM Inactive CETIRIZINE HCL 5 MG ORAL TABLET Take 1 tablet by mouth daily CETIRIZINE HCL 5 MG ORAL TABLET 3441120 CETIRIZINE HCL Inactive PRAMIPEXOLE DIHYDROCHLORIDE 0.125 MG ORAL TABLET take 1 tablet po qhs for restless leg syndrome. PRAMIPEXOLE DIHYD ROCHLORIDE 0.125 MG ORAL TABLET 582682 PRAMIPEXOLE DIHYDROCHLORIDE Inactive MIRTAZAPINE 15 MG ORAL TABLET 1/2 tab by mouth at bedtime. 03/13 MIRTAZAPINE 15 MG ORAL TABLET 450129 MIRTAZAPINE In active DIFLUCAN 100 MG ORAL TABLET 1 tablet by mouth daily X 3 DAYS 201 04/09/01 DIFLUCAN 100 MG ORAL TABLET 823087 FLUCONAZOLE Inac tive DIFLUCAN 100 MG ORAL TABLET 1 tablet by mouth every other da y for 2 doses DIFLUCAN 100 MG ORAL TABLET 404549 FLUCONAZOLE Inactive CEFTIN 250 MG ORAL TABLET 1 tablet twice daily x 7 days CEFTIN 250 MG ORAL TABLET CEFUROXIME AXETIL Inactive CYMBALTA 30 MG ORAL CAPSULE DELAYED RELEASE PARTICLES 1 cap by mouth daily with 60mg CYMBALTA 30 MG ORAL CAPSULE DELAYED RELEASE PARTICLES 605920 DULOXETINE HCL Inactive CYMBALTA 60 MG ORAL CAPSULE DELAYED RELEASE PARTICLES Take 1 tablet by mouth daily CYMBALTA 60 MG ORAL CAPSULE DELAYED RELEA SE PARTICLES 619177 DULOXETINE HCL Inactive FOSAMAX 70 MG ORAL TABLET 1 po qweek. Take 30min prio r to first food/drink. Avoid lying down x 1 hour. FOSAMAX 70 MG ORAL TA BLET 286394 ALENDRONATE SODIUM Inactive DIFLUCAN 100 MG ORAL TABLET 1 tablet by mouth daily 19/08/26 DIFLUCAN 100 MG ORAL TABLET 783949 FLUCONAZOLE Inactive PREDNISONE 20 MG ORAL TABLET 1 tab twice daily for 3 d ay, then one daily for three days PREDNISONE 20 MG ORAL TABLET 482677 PREDNIS ONE Inactive PROAIR HFA 108 (90 BASE) MCG/ACT INHALATION AEROSOL SO LUTION 1 puff every 6 hours as needed PROAIR HFA 108 (90 B ASE) MCG/ACT INHALATION AEROSOL SOLUTION ALBUTEROL SULFATE Inactive MECLIZINE HCL 25 MG ORAL TABLET one tab po qday prn dizziness 20 17/09/06 MECLIZINE HCL 25 MG ORAL TABLET 877681 MECLIZINE HCL Inactive PREDNISONE 20 MG ORAL TABLET 1 tablet by mouth twice d aily for 3 days, then 1 tablet daily for 3 days PREDNISONE 20 MG ORAL TA BLET 227029 PREDNISONE Inactive DIFLUCAN 100 MG ORAL TABLET 1 tablet by mouth daily 20 20/06/06 DIFLUCAN 100 MG ORAL TABLET 973536 FLUCONAZOLE Inactive REPHRESH PRO-B ORAL CAPSULE 1 tablet daily REPHRESH PRO-B ORAL CAPSULE LACTOBACILLUS Inactive RED YEAST RICE 600 MG ORAL CAPSULE 1 pill by mouth daily RED YEAST RICE 600 MG ORAL CAPSULE 278927 RED YEAST RICE EXTRACT In active SUDAFED [...] 20 19/02/09 DIFLUCAN 100 MG ORAL TABLET 088304 FLUCONAZOLE Inactive DIFLUCAN 100 MG ORAL TABLET 1 tablet by mouth daily 20 19/02/09 DIFLUCAN 100 MG ORAL TABLET 667273 FLUCONAZOLE Inactive VENLAFAXINE HCL 75 MG ORAL TABLET 1 am 1/2 at noon 201 07/07/09 VENLAFAXINE HCL 75 MG ORAL TABLET 637881 VENLAFAXINE HCL Inacti ve GABAPENTIN 300 MG ORAL CAPSULE 1 po daily GABAPENTIN 300 MG ORAL CAPSULE 282071 GABAPENTIN Inactive SUDAFED 12 HOUR 120 MG ORAL TABLET EXTENDED RELEASE 12 HOUR 1 pill twice daily if needed for congestion SUDAFED 12 HOUR 120 MG ORAL TABLET EXTENDED RELEASE 12 HOUR PSEUDOEPHEDRINE HCL Inactive AMITRIPTYLINE HCL 10 MG ORAL TABLET 1 tablet nightly by mout h for neuropathy AMITRIPTYLINE HCL 10 MG ORAL TABLET 340732 AMITRIPTYLINE HCL Inactive AMITRIPTYLINE HCL 50 MG ORAL TABLET 1 po q hs for sleep AMITRIPTYLINE HCL 50 MG ORAL TABLET 687193 AMITRIPTYLINE HCL Inac tive PREDNISONE 20 MG ORAL TABLET 1 tab twice daily for 3 d ay, then one daily for three days PREDNISONE 20 MG ORAL TABLET 319929 PREDNIS ONE Inactive ROPINIROLE HCL 0.25 MG ORAL TABLET 1 TAB PO Q HS 05/31 ROPINIROLE HCL 0.25 MG ORAL TABLET 633692 ROPINIROLE HCL Inact trent ROPINIROLE HCL 0.5 MG ORAL TABLET 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 ROPINIROLE HCL 0.5 MG ORAL TABLET 337758 ROPINIR OLE HCL Inactive ROPINIROLE HCL 1 MG ORAL TABLET 1 tab po q hs ROPINIROLE HCL 1 MG ORAL TABLET 178605 ROPINIROLE HCL Inactive ROPINIROLE HCL 2 MG ORAL TABLET 1 po at hs 7 ROPINIROLE HCL 2 MG ORAL TABLET 427278 ROPINIROLE HCL Inactive MIRAPEX 0.125 MG ORAL TABLET 1 po nightly MIRAPEX 0.125 MG ORAL TABLET 343865 PRAMIPEXOLE DIHYDROCHLORIDE Inactive MIRAPEX 0.25 MG ORAL TABLET 1 tablet by mouth at night for r estless leg MIRAPEX 0.25 MG ORAL TABLET 953162 PRAM IPEXOLE DIHYDROCHLORIDE Inactive HYDROXYZINE HCL 25 MG ORAL TABLET 1 tab po at HS prn sleep 08/02 HYDROXYZINE HCL 25 MG ORAL TABLET 735210 HYDROXYZINE HC L Inactive DIFLUCAN 100 MG ORAL TABLET 1 tablet by mouth daily 21/08/28 DIFLUCAN 100 MG ORAL TABLET 813239 FLUCONAZOLE Inactive BACTRIM DS 800-160 MG ORAL TABLET 1 tab by mouth twice daily 201 03/03/23 BACTRIM DS 800-160 MG ORAL TABLET 571367 TRIMETHOPRIM-SULFAMETHOXAZOLE Inactive ZITHROMAX 250 MG ORAL TABLET 2 po today, then 1 po q days 2-5 20 15/02/10 ZITHROMAX 250 MG ORAL TABLET 235782 AZITHROMYCIN Mayela ctive BACTRIM DS 800-160 MG [...] 20 19/03/05 DIFLUCAN 100 MG ORAL TABLET 174384 FLUCONAZOLE Inactive BACTRIM DS 800-160 MG ORAL TABLET 1 tab by mouth twice daily 201 05/10/28 BACTRIM DS 800-160 MG ORAL TABLET 19830105 TRIMETHOPRIM-SULFAMETHOXAZOLE Inactive AMOXICILLIN 500 MG ORAL CAPSULE 1 cap by mouth three times a day AMOXICILLIN 500 MG ORAL CAPSULE 980386 AMOXICILLIN Inactive ZITHROMAX 250 MG ORAL TABLET 2 po today, then 1 po q days 2-5 20 20/04/28 ZITHROMAX 250 MG ORAL TABLET 730208 AZITHROMYCIN Mayela ctive DIFLUCAN 100 MG ORAL [...] 07/08/06 BACTRIM DS 800-160 MG ORAL TABLET 046390 TRIMETHOPRIM-SULFAMETHOXAZOLE Inactive DIFLUCAN 100 MG ORAL TABLET 1 tablet by mouth daily 20 21/03/11 DIFLUCAN 100 MG ORAL TABLET 011513 FLUCONAZOLE Inactive ZITHROMAX 250 MG ORAL TABLET 2 po today, then 1 po q days 2-5 20 21/08/28 ZITHROMAX 250 MG ORAL TABLET 900582 AZITHROMYCIN Mayela ctive FLUCONAZOLE 100 MG ORAL TABLET 1 by mouth daily for yeast infect ion FLUCONAZOLE 100 MG ORAL TABLET 19760711 FLUCONAZOLE I nactive Advance Directives Directive Description Start Date PERMISSION TO SHARE DISCUSSED WITH PATIENT -- NO DECISION MADE DISCUSED WITH PATIENT -- FULL CODE LIVING WILL ON FILE DURABLE 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 OF 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 SYSTEM 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 FOR HEALTHCARE Vital Signs Date Name [...] Magnesium - Chemistry cholesterol, serum 196 mg/dL [phone]/07/30 triglyceride, serum, fasting 86 mg/dL 30-200 HDL cholesterol, serum 41 mg/dL 32-60 LDL cholesterol, serum 138 mg/dL 0-130 sodium, serum 140 mmol/L 874-841 7195/07/30 carbon dioxide, venous blood 28.6 mmol/L 21.0-32 [...] 50-136 Encounters Code Encounter Date Provider Facility CPT-40507 [id number] Vst-Est Level IV 11:39:[address] Tesfaye Sherman MD [facility] CPT-60882 [id number] Vst-Est Level IV 14:08:03 C BRIDGET Sherman MD [facility] CPT-52701 Level 3 Est. Patient 18:06:36 CDT Tesfaye pearson MD [facility] CPT-60651 [id number] Vst-Est Level IV 17:09:34 C BRIDGET Sherman MD [facility] CPT-32412 Level 3 Est. Patient 17:27:08 CDT León hernandez LIFT BUILDER WHOLE [facility] CPT-54763 [id number] Vst-Est Level IV 14:00:[address] Tesfaye Sherman MD [facility]-09440 [id number] Vst-Est Level IV 19:27:[address] Tesfaye Sherman MD [facility]-24182 [id number] Vst-Est Level IV 10:41:41 C BRIDGET Sherman MD [facility]-81342 [id number] Vst-Est Level III 09:40:56 CDT Tesfaye Sherman MD [facility] CPT-45980 Level 4 Est. Patient 22:18:12 CDT Tesfaye pearson MD [facility]-51038 Level 4 Est. Patient 14:44:33 POLICY SPECIALIST Tesfaye pearson MD [facility]-36640 Level 4 Est. Patient 13:55:29 POLICY SPECIALIST Tesfaye pearson MD [facility] CPT-75382 Level 4 Est. Patient 17:07:34 POLICY SPECIALIST Tesfaye pearson MD [facility] CPT-99836 Level 4 Est. Patient 13:56:54 CDT Tesfaye pearson MD [facility] CPT-01738 Level 4 Est. Patient 13:24:25 CDT Chelsea sanz APRN [facility] CPT-46155 Level 4 Est. Patient 09:14:56 CDT Tesfaye pearson MD [facility] CPT-74127 Level 4 Est. Patient 18:40:25 POLICY SPECIALIST Tesfaye pearson MD [facility] CPT-91529 Level 4 Est. Patient 18:13:07 POLICY SPECIALIST Tesfaye pearson MD [facility] CPT-08563 Level 3 Est. Patient 10:46:32 CDT Rj cotto DO [facility] CPT-87363 Level 4 Est. Patient 20:19:25 CDT Tesfaye pearson MD [facility]-54507 Level 3 Est. Patient 09:07:31 CDT Tesfaye pearson MD [facility]-63255 Level 4 Est. Patient 13:12:56 CDT Tesfaye pearson MD [facility]-53807 Level 4 Est. Patient 21:24:55 POLICY SPECIALIST Tesfaye pearson MD [facility]-27283 Level 3 Est. Patient 13:45:04 POLICY SPECIALIST Tesfaye pearson MD [facility] CPT-48902 Level 4 Est. Patient 13:50:45 CDT Tesfaye pearson MD [facility] CPT-18959 Level 3 Est. Patient 10:16:10 CDT Tesfaye pearson MD [facility] CPT-67324 Level 3 Est. Patient 16:36:07 POLICY SPECIALIST Kayla jameson MD [facility]-66894 Level 4 Est. Patient 16:00:14 POLICY SPECIALIST Tesfaye pearson MD [facility] CPT-12871 Level 4 Est. Patient 11:02:24 POLICY SPECIALIST Tesfaye pearson MD [facility]-42839 Level 3 Est. Patient 20:21:43 POLICY SPECIALIST Kayla jameson MD [facility] CPT-17656 Level 3 Est. Patient 13:27:28 POLICY SPECIALIST Kayla jameson MD [facility]-42685 Level 4 Est. Patient 15:57:17 POLICY SPECIALIST Tesfaye pearson MD [facility] CPT-06988 Level 3 New Patient 13:25:47 CDT Tesfaye kidd MD [facility] CPT-49630 Level 3 New Patient 17:22:21 CDT Kayla angel MD [facility] Procedures Code Procedure Name Date Entry Date Standard Desc ription CPT-51776 Bone Density - XRAY USE ONLY 15:21:33 CDT 2 CPT-73700 Venipuncture Draw Fee 16:12:22 CDT CPT-G0439 Subsequent Annual Wellness Exam 18:06:36 CDT CPT-G0439 Subsequent Annual Wellness Exam 22:18:11 CDT CPT-42356 Bone Density - XRAY USE ONLY 11:43:58 CDT 2 CPT-01321 Bone Density - XRAY USE ONLY 10:05:16 CDT 2 CPT-64383 Prv Med New Pt 40-64 yrs 18:19:25 CDT 2016 CPT-70099 Foot, right, comp min 3V - XRAY USE ONLY 10:38:34 CDT CPT-G0439 Subsequent Annual Wellness Exam 13:55:04 CDT CPT-G0438 Initial Annual Wellness Exam 11:23:17 CD T CPT-J2930 Solu Medrol 125 mg (Methyl Prednisolone Sodium Succinate) 17:29:12 POLICY SPECIALIST CPT-35171 Abx/Therapy Injection 17:29:11 POLICY SPECIALIST CPT-J2930 Solu Medrol 125 mg (Methyl Prednisolone Sodium Succinate) 12:34:38 POLICY SPECIALIST CPT-J3420 Vitamin B12 1000mcg (Cyanocobalamin) 09:12:55 CDT CPT-J3420 Vitamin B12 1000mcg (Cyanocobalamin) 16:28:06 POLICY SPECIALIST CPT-34267 Venipuncture Draw Fee 08:39:53 CDT CPT-J3420 Vitamin B12 1000mcg (Cyanocobalamin) 08:46:22 CDT CPT-46961 Abx/Therapy Injection 08:46:22 CDT CPT-J3420 Vitamin B12 1000mcg (Cyanocobalamin) 08:41:26 CDT CPT-34334 Abx/Therapy Injection 08:41:26 CDT CPT-J3420 Vitamin B12 1000mcg (Cyanocobalamin) 08:57:15 CDT CPT-63457 Abx/Therapy Injection 08:57:15 CDT CPT-J3420 Vitamin B12 1000mcg (Cyanocobalamin) 10:59:03 CDT CPT-37728 Abx/Therapy Injection 10:59:03 CDT CPT-J3420 Vitamin B12 1000mcg (Cyanocobalamin) 15:05:39 CDT CPT-52187 Abx/Therapy Injection 15:05:39 CDT CPT-J3420 Vitamin B12 1000mcg (Cyanocobalamin) 13:50:45 CDT CPT-J3420 Vitamin B12 1000mcg (Cyanocobalamin) 08:48:55 CDT CPT-76834 Abx/Therapy Injection 08:48:55 CDT CPT-J3420 Vitamin B12 1000mcg (Cyanocobalamin) 09:14:54 CDT CPT-14499 Abx/Therapy Injection 09:14:54 CDT CPT-J3420 Vitamin B12 1000mcg (Cyanocobalamin) 09:06:06 CDT CPT-72193 Abx/Therapy Injection 09:06:06 CDT CPT-J3420 Vitamin B12 1000mcg (Cyanocobalamin) 09:49:14 CDT CPT-52758 Abx/Therapy Injection 09:49:14 CDT CPT-J3420 Vitamin B12 1000mcg (Cyanocobalamin) 09:10:30 POLICY SPECIALIST CPT-64873 Abx/Therapy Injection 09:10:30 POLICY SPECIALIST CPT-J3420 Vitamin B12 1000mcg (Cyanocobalamin) 09:11:07 POLICY SPECIALIST CPT-39129 Abx/Therapy Injection 09:11:07 POLICY SPECIALIST CPT-J3420 Vitamin B12 1000mcg (Cyanocobalamin) 09:57:03 POLICY SPECIALIST CPT-88669 Abx/Therapy Injection 09:57:03 POLICY SPECIALIST CPT-J3420 Vitamin B12 1000mcg (Cyanocobalamin) 09:23:21 POLICY SPECIALIST CPT-16553 Abx/Therapy Injection 09:23:21 POLICY SPECIALIST CPT-91823 Urine Dip (Floor Use Only) 20:21:44 POLICY SPECIALIST 201 02/12/11 CPT-57043 UA Dip Auto (Floor Use Only) 10:04:39 POLICY SPECIALIST 2 CPT-56052 Urine Dip (Floor Use Only) 13:27:28 POLICY SPECIALIST 201 02/12/01 CPT-84028 Bladder Scan 13:27:28 POLICY SPECIALIST CPT-68910 Abd single AP View 14:30:51 POLICY SPECIALIST CPT-OV Office Visit 10:15:43 CDT CPT-61901 Urine Dip (Floor Use Only) 17:22:21 CDT 201 02/09/02 CPT-77161 Bladder Scan 17:22:21 CDT
--- OUTSIDE RECORDS SUMMARY | 2020-05-05 11:08 | XMS REPORT | Clinical Summary ---
Author Author Talon, Jeri Wood Organization [employer] Address Unknown Phone Unavailable Allergies, Adverse Reactions, [...] Acute sinusitis, unspecified Interstitial Cystitis 595.1 Active aKyla richmond MD Chronic interstitial cystitis Preventive health [...] MD Routine general medical examination at a [facility] acility Body Mass Index [...] bilateral 782.3 Active 201 07/07/09 León Kodi CRANE OILER Edema Peripheral neuropathy 356.9 Active Tesfaye lamb [...] Generic Name NDC Status Provider Patient Instruction FLUCONAZOLE 100 MG ORAL TABLET 1 by mouth daily for yeast infect ion FLUCONAZOLE [id number] No Longer Active Laurence Dominguez Acti ve PREDNISONE 20 MG ORAL TABLET 1 tab twice daily for 3 d ay, then one daily for three days PREDNISONE 27373731838 Active Tesfaye Sherman MD Active ZITHROMAX 250 MG ORAL TABLET 2 po today, then 1 po q days 2-5 20 21/08/28 AZITHROMYCIN 68775491575 No Longer Active Tesfaye Sherman MD Active DIFLUCAN 100 MG ORAL TABLET 1 tablet by mouth daily 20 21/08/28 FLUCONAZOLE 26327840984 No Longer Active Tesfaye Sherman MD Acti ve UNISOM SLEEPMELTS 25 MG ORAL TABLET DISINTEGRATING 1.5 po q hs 201 07/13/28 DIPHENHYDRAMINE HCL (SLEEP) 43946403124 Active Tesfaye Sherman MD Active HYDROXYZINE HCL 25 MG ORAL TABLET 1 tab po at HS prn sleep 08/02 HYDROXYZINE HCL 62447842363 No Longer Active Tesfaye Sherman MD Active MIRAPEX 0.5 MG ORAL TABLET 1 tablet at night for restless leg. 2018 PRAMIPEXOLE DIHYDROCHLORIDE 92305529545 Active Laurence Dominguez Active MIRAPEX 0.25 MG ORAL TABLET 1 tablet by mouth at night for r estless leg PRAMIPEXOLE DIHYDROCHLORIDE 42597060086 No Longer Act trent Laurence Dominguez Active MIRAPEX 0.125 MG ORAL TABLET 1 po nightly PRAMIPEXOLE DIHYDROCHLORIDE 96259412621 No Longer Active Laurence Dominguez Active ROPINIROLE HCL 2 MG ORAL TABLET 1 po at hs ROPI NIROLE HCL 92724051933 No Longer Active Laurence Dominguez Active ROPINIROLE HCL 1 MG ORAL TABLET 1 tab po q hs ROPINIROLE HCL 44162643898 No Longer Active Laurence Dominguez Active ROPINIROLE HCL 0.5 MG ORAL TABLET 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 ROPINIROLE HCL 58696128290 No Longer Active MARCUS Panchal Active ROPINIROLE HCL 0.25 MG ORAL TABLET 1 TAB PO Q HS 05/31 ROPINIROLE HCL 85170607115 No Longer Active Tesfaye Sherman MD Ac tive PREDNISONE 20 MG ORAL TABLET 1 tab twice daily for 3 d ay, then one daily for three days PREDNISONE 14959082177 No Longer Active Tesfaye Sherman MD Active AMITRIPTYLINE HCL 50 MG ORAL TABLET 1 po q hs for sleep AMITRIPTYLINE HCL 37149330596 No Longer Active Tesfaye Sherman MD Active AMITRIPTYLINE HCL 10 MG ORAL TABLET 1 tablet nightly by mout h for neuropathy AMITRIPTYLINE HCL 42007427292 No Longer Active MARCUS Stapleton Active DIFLUCAN 100 MG ORAL TABLET 1 tablet by mouth daily 20 21/03/11 FLUCONAZOLE 41394735603 No Longer Active Tesfaye Sherman MD Acti ve BACTRIM DS 800-160 MG ORAL TABLET 1 tab by mouth twice daily 201 07/08/06 TRIMETHOPRIM-SULFAMETHOXAZOLE 88715636190 No Longer Active Yanet Sherman MD Active CLARITIN 10 MG ORAL TABLET Take one by mouth daily LORATADINE 15986854412 Active Tesfaye Sherman MD Active SUDAFED 12 HOUR 120 MG ORAL TABLET EXTENDED RELEASE 12 HOUR 1 pill twice daily if needed for congestion PSEUDOEPHEDRINE HCL 382275129 13 No Longer Active Tesfaye Sherman MD Active FENOFIBRATE 145 MG ORAL TABLET 1 by mouth daily FENOFIBRATE 09411466412 Active Laurence Dominguez Active GABAPENTIN 300 MG ORAL CAPSULE 1 po daily GABAP ENTIN 32199391740 No Longer Active Tesfaye Sherman MD Active HYDROCHLOROTHIAZIDE 12.5 MG ORAL CAPSULE 1 pill by mough daily 2 HYDROCHLOROTHIAZIDE 84782766347 No Longer Active León Mariee CRANE OILER Active VENLAFAXINE HCL 75 MG ORAL TABLET 1 am 1/2 at noon 201 07/07/09 VENLAFAXINE HCL 64925366823 No Longer Active León Mariee CRANE OILER Act trent DIFLUCAN 100 MG ORAL TABLET 1 tablet by mouth daily 19/02/09 FLUCONAZOLE 51906194890 No Longer Active León Kodi CRANE OILER Active DIFLUCAN 100 MG ORAL TABLET 1 tablet by mouth daily 19/02/09 FLUCONAZOLE 27981990865 No Longer Active León Mariee APRN Active OXYCODONE-ACETAMINOPHEN 5-325 MG ORAL TABLET Take one tablet by mouth every 6 hours 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 Use sparingly OXYCODONE-ACETAMINOPHEN 87123597571 Active Tesfaye villar MD Active CLONAZEPAM 0.5 MG ORAL TABLET Take 1/2 qam, and 1/2 qpm CLONAZEPAM 54293181905 Active Tesfaye Sherman MD Active PRELIEF 340 (65-50) MG (CA-P) ORAL TABLET CALCIUM GLYCEROPHOSPHATE 20287244620 No Longer Active Tesfaye Sherman MD Active SUDAFED 24 HOUR 240 MG ORAL TABLET EXTENDED RELEASE 24 HOUR 1 tab po daily PSEUDOEPHEDRINE HCL 90891561865 No Longer Active Raul yanet Sherman MD Active RED YEAST RICE 600 MG ORAL CAPSULE 1 pill by mouth daily RED YEAST RICE EXTRACT 35165751569 No Longer Active Tesfaye Sherman MD Active REPHRESH PRO-B ORAL CAPSULE 1 tablet daily LACT OBACILLUS 59357847159 No Longer Active Tesfaye Sherman MD Active ABILIFY 2 MG ORAL TABLET 1 by mouth daily. MARIA ELENA PIPRAZOLE 04420531475 Active Tesfaye Sherman MD Active CYMBALTA 60 MG ORAL CAPSULE DELAYED RELEASE PARTICLES 1 cap by mouth daily for pain DULOXETINE HCL 93682715369 Active MARCUS Lindsay Active DIFLUCAN 100 MG ORAL TABLET 1 tablet by mouth daily 20 20/06/06 FLUCONAZOLE 93905636125 No Longer Active Tesfaye Sherman MD Acti ve PREDNISONE 20 MG ORAL TABLET 1 tablet by mouth twice d aily for 3 days, then 1 tablet daily for 3 days PREDNISONE 30104410785 No L onger Active Tesfaye Sherman MD Active BACTRIM DS 800-160 MG ORAL TABLET 1 tab by mouth twice daily 201 06/09/02 TRIMETHOPRIM-SULFAMETHOXAZOLE 16553577275 No Longer Active A mirna Angelica Active DIFLUCAN 100 MG ORAL TABLET 1 tablet by mouth daily 20 20/05/01 FLUCONAZOLE 04185398326 No Longer Active Tesfaye Sherman MD Acti ve ZITHROMAX 250 MG ORAL TABLET 2 po today, then 1 po q days 2-5 20 20/04/28 AZITHROMYCIN 49662053845 No Longer Active Tesfaye Sherman MD Active MECLIZINE HCL 25 MG ORAL TABLET one tab po qday prn dizziness 20 17/09/06 MECLIZINE HCL 21680526227 No Longer Active Tesfaye Sherman MD Active PROAIR HFA 108 (90 BASE) MCG/ACT INHALATION AEROSOL SO LUTION 1 puff every 6 hours as needed ALBUTEROL SULFATE 62873424996 No Long er Active Tesfaye Sherman MD Active PREDNISONE 20 MG ORAL TABLET 1 tab twice daily for 3 d ay, then one daily for three days PREDNISONE 30262020566 No Longer Active Tesfaye Sherman MD Active MECLIZINE HCL 25 MG ORAL TABLET one 4 times a day as needed for dizziness MECLIZINE HCL 42242986733 Active Tesfaye Sherman MD Active AMOXICILLIN 500 MG ORAL CAPSULE 1 cap by mouth three times a day AMOXICILLIN 42886837287 No Longer Active Laurence Raida Acti ve DIFLUCAN 100 MG ORAL TABLET 1 tablet by mouth daily 20 19/08/26 FLUCONAZOLE 55701563978 No Longer Active Tesfaye Sherman MD Acti ve BACTRIM DS 800-160 MG ORAL TABLET 1 tab by mouth twice daily 201 05/10/28 TRIMETHOPRIM-SULFAMETHOXAZOLE 13002177953 No Longer Active Fer mirna Lopezduyen Active FOSAMAX 70 MG ORAL TABLET 1 po qweek. Take 30min prio r to first food/drink. Avoid lying down x 1 hour. ALENDRONATE SODIUM 16109063 144 No Longer Active Laurence Raduyen Active CYMBALTA 60 MG ORAL CAPSULE DELAYED RELEASE PARTICLES Take 1 tablet by mouth daily DULOXETINE HCL 98397364766 No Longer Active Edith Burch MD Active CYMBALTA 30 MG ORAL CAPSULE DELAYED RELEASE PARTICLES 1 cap by mouth daily with 60mg DULOXETINE HCL 19305231510 No Longer Active Jordan Burch MD Active FISH OIL 1000 MG ORAL CAPSULE DELAYED RELEASE 1 pill b y mouth daily for cholesterol OMEGA-3 FATTY ACIDS 60527971308 Active Cee Jaffe LPN Active DIFLUCAN 100 MG ORAL TABLET 1 tablet by mouth daily 20 19/03/05 FLUCONAZOLE 66937912552 No Longer Active Tesfaye Sherman MD Acti ve BACTRIM DS 800-160 MG ORAL TABLET 1 tab by mouth twice daily 201 05/06/28 TRIMETHOPRIM-SULFAMETHOXAZOLE 95273714900 No Longer Active Yanet Sherman MD Active BACTRIM DS 800-160 MG ORAL TABLET 1 tab by mouth twice daily 201 05/04/15 TRIMETHOPRIM-SULFAMETHOXAZOLE 84441973003 No Longer Active Yanet Sherman MD Active DIFLUCAN 150 MG ORAL TABLET 1 tablet by mouth daily 20 18/09/20 FLUCONAZOLE 56713198902 No Longer Active Tesfaye Sherman MD Acti ve BACTRIM DS 800-160 MG ORAL TABLET 1 tab by mouth twice daily 201 04/13/17 TRIMETHOPRIM-SULFAMETHOXAZOLE 06124713056 No Longer Active Yanet Sherman MD Active CEFTIN 250 MG ORAL TABLET 1 tablet twice daily x 7 days CEFUROXIME AXETIL 53751004084 No Longer Active Tesfaye Sherman MD Active DIFLUCAN 100 MG ORAL TABLET 1 tablet by mouth every other da y for 2 doses FLUCONAZOLE 51885421037 No Longer Active Tesfaye barron MD Active DIFLUCAN 100 MG ORAL TABLET 1 tablet by mouth daily X 3 DAYS 201 04/09/01 FLUCONAZOLE 37218449854 No Longer Active Rj Ravi MIRTAZAPINE 15 MG ORAL TABLET 1/2 tab by mouth at bedtime. 03/13 MIRTAZAPINE 49004984828 No Longer Active Tesfaye Sherman MD Active BACTRIM DS 800-160 MG ORAL TABLET 1 tab by mouth twice daily 201 04/09/01 TRIMETHOPRIM-SULFAMETHOXAZOLE 24518499338 No Longer Active Yanet Sherman MD Active PRAMIPEXOLE DIHYDROCHLORIDE 0.125 MG ORAL TABLET take 1 tablet po qhs for restless leg syndrome. PRAMIPEXOLE DIHYDROCHLORI DE 77945292796 No Longer Active Tesfaye Sherman MD Active MAGNESIUM 400 MG ORAL TABLET 1 tab po daily MAGNE SIUM 90873032403 Active Chelsea Cardenas APRN Active CETIRIZINE HCL 5 MG ORAL TABLET Take 1 tablet by mouth daily CETIRIZINE HCL 94469163625 No Longer Active Chelsea Cardenas APRN Activ e TRIMETHOPRIM 100 MG ORAL TABLET 1/2 qd TRIM ETHOPRIM 80523375664 No Longer Active Chelsea Cardenas APRN Active BACTRIM DS 800-160 MG ORAL TABLET 1 tab by mouth twice daily 201 04/04/11 TRIMETHOPRIM-SULFAMETHOXAZOLE 80082137843 No Longer Active Yanet Sherman MD Active BACTRIM DS 800-160 MG ORAL TABLET 1 tab by mouth twice daily X 10 DAYS TRIMETHOPRIM-SULFAMETHOXAZOLE 11791693055 No Longer Active Tesfaye Sherman MD Active AMOXICILLIN 500 MG ORAL CAPSULE 1 cap by mouth three times a day AMOXICILLIN 65649335739 No Longer Active Adriana Arredondo Fer [place] ctive B-12 1000 MCG ORAL LOZENGE 1 tab po daily CYANO COBALAMIN 12160497808 Active Tesfaye Sherman MD Active VITAMIN D3 2000 UNIT ORAL TABLET 1 daily, for vitamin D deficien cy CHOLECALCIFEROL 84328302060 No Longer Active Tesfaye Sherman MD Active TIZANIDINE HCL 2 MG ORAL TABLET take 1-2 tablet by [facility] every day at bedtime at 9pm PRN TIZANIDINE HCL 62807164765 Active Tesfaye hewitt MD Active ZITHROMAX 250 MG ORAL TABLET 2 po today, then 1 po q days 2-5 20 15/02/10 AZITHROMYCIN 97444670372 No Longer Active Tesfaye Sherman MD Active BACTRIM DS 800-160 MG ORAL TABLET 1 tab by mouth twice daily 201 03/03/23 TRIMETHOPRIM-SULFAMETHOXAZOLE 96484333499 No Longer Active Yanet Sherman MD Active [facility] NIACIN FLUSH FREE 400-100 MG ORAL CAPSULE 1 daily NIACIN-INOSITOL 68188532985 Active Kayla Cooper MD Activ e DIFLUCAN 150 MG ORAL TABLET 1 qd FLUCONAZOL E 84043401158 No Longer Active Kayla Cooper MD Active FLUTICASONE PROPIONATE 50 MCG/ACT NASAL SUSPENSION 1 spray each nostril twice daily FLUTICASONE PROPIONATE 39829991975 Active Yanet Sherman MD Active LOVASTATIN 20 MG ORAL TABLET Take 1 tablet by mouth daily LOVASTATIN 73952947470 No Longer Active Tesfaye Sherman MD Acti ve MELOXICAM 7.5 MG ORAL TABLET 1 tablet by mouth daily 2 MELOXICAM 92418316058 No Longer Active Tesfaye Sherman MD Acti ve GABAPENTIN 300 MG ORAL CAPSULE Take two tablets by mouth every e vening GABAPENTIN 74100821178 No Longer Active Edith Burch MD A ctive BACLOFEN 10 MG ORAL TABLET Take one tablet by mouth three times a d ay BACLOFEN 60012794660 Active Kayla Cooper MD Active GABAPENTIN 300 MG ORAL CAPSULE Take two tablets by mouth every e vening GABAPENTIN 300 MG ORAL CAPSULE 838183 GABAPENTIN I nactive MELOXICAM 7.5 MG ORAL TABLET 1 tablet by mouth daily 2 MELOXICAM 7.5 MG ORAL TABLET 839066 MELOXICAM Inactive LOVASTATIN 20 MG ORAL TABLET Take 1 tablet by mouth daily LOVASTATIN 20 MG ORAL TABLET 214957 LOVASTATIN Inactive DIFLUCAN 150 MG ORAL TABLET 1 qd DIFLUCAN 150 MG ORAL TABLET 506507 FLUCONAZOLE Inactive VITAMIN D3 2000 UNIT ORAL TABLET 1 daily, for vitamin D deficien cy VITAMIN D3 2000 UNIT ORAL TABLET CHOLECALCIFEROL Inactive AMOXICILLIN 500 MG ORAL CAPSULE 1 cap by mouth three times a day AMOXICILLIN 500 MG ORAL CAPSULE 111692 AMOXICILLIN Inactive BACTRIM DS 800-160 MG ORAL TABLET 1 tab by mouth twice daily X 10 DAYS BACTRIM DS 800-160 MG ORAL TABLET 161022 TRIMETHOPRIM-SULFAMETHOXAZOLE Inactive TRIMETHOPRIM 100 MG ORAL TABLET 1/2 qd 7 TRIMETHOPRIM 100 MG ORAL TABLET 178299 TRIMETHOPRIM Inactive CETIRIZINE HCL 5 MG ORAL TABLET Take 1 tablet by mouth daily CETIRIZINE HCL 5 MG ORAL TABLET 6696810 CETIRIZINE HCL Inactive PRAMIPEXOLE DIHYDROCHLORIDE 0.125 MG ORAL TABLET take 1 tablet po qhs for restless leg syndrome. PRAMIPEXOLE DIHYD ROCHLORIDE 0.125 MG ORAL TABLET 313032 PRAMIPEXOLE DIHYDROCHLORIDE Inactive MIRTAZAPINE 15 MG ORAL TABLET 1/2 tab by mouth at bedtime. 03/13 MIRTAZAPINE 15 MG ORAL TABLET 670031 MIRTAZAPINE In active DIFLUCAN 100 MG ORAL TABLET 1 tablet by mouth daily X 3 DAYS 201 04/09/01 DIFLUCAN 100 MG ORAL TABLET 19760711 FLUCONAZOLE Inac tive DIFLUCAN 100 MG ORAL TABLET 1 tablet by mouth every other da y for 2 doses DIFLUCAN 100 MG ORAL TABLET 19760711 FLUCONAZOLE Inactive CEFTIN 250 MG ORAL TABLET 1 tablet twice daily x 7 days CEFTIN 250 MG ORAL TABLET CEFUROXIME AXETIL Inactive CYMBALTA 30 MG ORAL CAPSULE DELAYED RELEASE PARTICLES 1 cap by mouth daily with 60mg CYMBALTA 30 MG ORAL CAPSULE DELAYED RELEASE PARTICLES 817618 DULOXETINE HCL Inactive CYMBALTA 60 MG ORAL CAPSULE DELAYED RELEASE PARTICLES Take 1 tablet by mouth daily CYMBALTA 60 MG ORAL CAPSULE DELAYED RELEA SE PARTICLES 256939 DULOXETINE HCL Inactive FOSAMAX 70 MG ORAL TABLET 1 po qweek. Take 30min prio r to first food/drink. Avoid lying down x 1 hour. FOSAMAX 70 MG ORAL TA BLET 001772 ALENDRONATE SODIUM Inactive DIFLUCAN 100 MG ORAL TABLET 1 tablet by mouth daily 19/08/26 DIFLUCAN 100 MG ORAL TABLET 840155 FLUCONAZOLE Inactive PREDNISONE 20 MG ORAL TABLET 1 tab twice daily for 3 d ay, then one daily for three days PREDNISONE 20 MG ORAL TABLET 850566 PREDNIS ONE Inactive PROAIR HFA 108 (90 BASE) MCG/ACT INHALATION AEROSOL SO LUTION 1 puff every 6 hours as needed PROAIR HFA 108 (90 B ASE) MCG/ACT INHALATION AEROSOL SOLUTION ALBUTEROL SULFATE Inactive MECLIZINE HCL 25 MG ORAL TABLET one tab po qday prn dizziness 20 17/09/06 MECLIZINE HCL 25 MG ORAL TABLET 361149 MECLIZINE HCL Inactive PREDNISONE 20 MG ORAL TABLET 1 tablet by mouth twice d aily for 3 days, then 1 tablet daily for 3 days PREDNISONE 20 MG ORAL TA BLET 797304 PREDNISONE Inactive DIFLUCAN 100 MG ORAL TABLET 1 tablet by mouth daily 20 20/06/06 DIFLUCAN 100 MG ORAL TABLET 19760711 FLUCONAZOLE Inactive REPHRESH PRO-B ORAL CAPSULE 1 tablet daily REPHRESH PRO-B ORAL CAPSULE LACTOBACILLUS Inactive RED YEAST RICE 600 MG ORAL CAPSULE 1 pill by mouth daily RED YEAST RICE 600 MG ORAL CAPSULE 644205 RED YEAST RICE EXTRACT In active SUDAFED [...] daily 19/02/09 DIFLUCAN 100 MG ORAL TABLET 892608 FLUCONAZOLE Inactive VENLAFAXINE HCL 75 MG ORAL TABLET 1 am 1/2 at noon 201 07/07/09 VENLAFAXINE HCL 75 MG ORAL TABLET 272858 VENLAFAXINE HCL Inacti ve GABAPENTIN 300 MG ORAL CAPSULE 1 po daily GABAPENTIN 300 MG ORAL CAPSULE 342217 GABAPENTIN Inactive SUDAFED 12 HOUR 120 MG ORAL TABLET EXTENDED RELEASE 12 HOUR 1 pill twice daily if needed for congestion SUDAFED 12 HOUR 120 MG ORAL TABLET EXTENDED RELEASE 12 HOUR PSEUDOEPHEDRINE HCL Inactive AMITRIPTYLINE HCL 10 MG ORAL TABLET 1 tablet nightly by mout h for neuropathy AMITRIPTYLINE HCL 10 MG ORAL TABLET 536110 AMITRIPTYLINE HCL Inactive AMITRIPTYLINE HCL 50 MG ORAL TABLET 1 po q hs for sleep AMITRIPTYLINE HCL 50 MG ORAL TABLET 496900 AMITRIPTYLINE HCL Inac tive PREDNISONE 20 MG ORAL TABLET 1 tab twice daily for 3 d ay, then one daily for three days PREDNISONE 20 MG ORAL TABLET 653891 PREDNIS ONE Inactive ROPINIROLE HCL 0.25 MG ORAL TABLET 1 TAB PO Q HS 05/31 ROPINIROLE HCL 0.25 MG ORAL TABLET 326845 ROPINIROLE HCL Inact trent ROPINIROLE HCL 0.5 MG ORAL TABLET 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 ROPINIROLE HCL 0.5 MG ORAL TABLET 093334 ROPINIR OLE HCL Inactive ROPINIROLE HCL 1 MG ORAL TABLET 1 tab po q hs ROPINIROLE HCL 1 MG ORAL TABLET 138773 ROPINIROLE HCL Inactive ROPINIROLE HCL 2 MG ORAL TABLET 1 po at hs 7 ROPINIROLE HCL 2 MG ORAL TABLET 103288 ROPINIROLE HCL Inactive MIRAPEX 0.125 MG ORAL TABLET 1 po nightly MIRAPEX 0.125 MG ORAL TABLET 046587 PRAMIPEXOLE DIHYDROCHLORIDE Inactive MIRAPEX 0.25 MG ORAL TABLET 1 tablet by mouth at night for r estless leg MIRAPEX 0.25 MG ORAL TABLET 099782 PRAM IPEXOLE DIHYDROCHLORIDE Inactive HYDROXYZINE HCL 25 MG ORAL TABLET 1 tab po at HS prn sleep 08/02 HYDROXYZINE HCL 25 MG ORAL TABLET 690959 HYDROXYZINE HC L Inactive DIFLUCAN 100 MG ORAL TABLET 1 tablet by mouth daily 20 21/08/28 DIFLUCAN 100 MG ORAL TABLET 778725 FLUCONAZOLE Inactive BACTRIM DS 800-160 MG ORAL TABLET 1 tab by mouth twice daily 201 03/03/23 BACTRIM DS 800-160 MG ORAL TABLET 506503 TRIMETHOPRIM-SULFAMETHOXAZOLE Inactive ZITHROMAX 250 MG ORAL TABLET 2 po today, then 1 po q days 2-5 20 15/02/10 ZITHROMAX 250 MG ORAL TABLET 379354 AZITHROMYCIN Mayela ctive BACTRIM DS 800-160 MG ORAL TABLET 1 tab by mouth twice daily 201 04/04/11 BACTRIM DS 800-160 MG ORAL TABLET 489415 TRIMETHOPRIM-SULFAMETHOXAZOLE Inactive BACTRIM DS 800-160 MG ORAL [...] a day AMOXICILLIN 500 MG ORAL CAPSULE 094003 AMOXICILLIN Inactive ZITHROMAX 250 MG ORAL TABLET 2 po today, then 1 po q days 2-5 20 20/04/28 ZITHROMAX 250 MG ORAL TABLET 469959 AZITHROMYCIN Mayela ctive DIFLUCAN 100 MG ORAL TABLET 1 tablet by mouth daily 20 20/05/01 DIFLUCAN 100 MG ORAL TABLET 19760711 FLUCONAZOLE Inactive BACTRIM DS 800-160 MG ORAL TABLET 1 tab by mouth twice daily 201 06/09/02 BACTRIM DS 800-160 MG ORAL TABLET 19830105 TRIMETHOPRIM-SULFAMETHOXAZOLE Inactive HYDROCHLOROTHIAZIDE 12.5 MG ORAL CAPSULE 1 pill by mough daily 2 HYDROCHLOROTHIAZIDE 12.5 MG [facility] BACTRIM DS 800-160 MG ORAL TABLET 1 tab by mouth twice daily 201 07/08/06 BACTRIM DS 800-160 MG ORAL TABLET 569892 TRIMETHOPRIM-SULFAMETHOXAZOLE Inactive DIFLUCAN 100 MG ORAL TABLET 1 tablet by mouth daily 21/03/11 DIFLUCAN 100 MG ORAL TABLET 19760711 FLUCONAZOLE Inactive ZITHROMAX 250 MG ORAL TABLET 2 po today, then 1 po q days 2-5 20 21/08/28 ZITHROMAX 250 MG ORAL TABLET 126365 AZITHROMYCIN [place] ctive FLUCONAZOLE 100 MG ORAL TABLET 1 by mouth daily for yeast infect ion FLUCONAZOLE 100 MG ORAL TABLET 19760711 FLUCONAZOLE I nactive Advance Directives Directive Description Start Date PERMISSION TO SHARE DISCUSSED WITH PATIENT -- NO DECISION MADE DISCUSED WITH PATIENT -- FULL CODE LIVING WILL ON FILE DURABLE POWER OF ANGLE SHEARER FOR HEALTHCARE Vital Signs Date Name Value [...] Magnesium - Chemistry cholesterol, serum 196 mg/dL [phone]/07/30 triglyceride, serum, fasting 86 mg/dL 30-200 HDL cholesterol, serum 41 mg/dL 32-60 LDL cholesterol, serum 138 mg/dL 0-130 sodium, serum 140 mmol/L 457-730 1055/07/30 carbon dioxide, venous blood 28.6 mmol/L 21.0-32 [...] 50-136 Encounters Code Encounter Date Provider Facility CPT-79621 [id number] Vst-Est Level IV 11:39:[address] Tesfaye Sherman MD [facility] CPT-67694 [id number] Vst-Est Level IV 14:08:03 C BRIDGET Sherman MD [facility] CPT-32742 Level 3 Est. Patient 18:06:36 CDT Tesfaye pearson MD [facility] CPT-71607 [id number] Vst-Est Level IV 17:09:34 C BRIDGET Shreman MD [facility] CPT-13884 Level 3 Est. Patient 17:27:08 CDT León hernandez APRN [facility] CPT-47085 [id number] Vst-Est Level IV 14:00:[address] Tesfaye Sherman MD [facility] CPT-32804 [id number] Vst-Est Level IV 19:27:[address] Tesfaye Sherman MD [facility] CPT-80099 [id number] Vst-Est Level IV 10:41:41 C DT Tesfaye Sherman MD [facility] CPT-06374 [id number] Vst-Est Level III 09:40:56 CDT Tesfaye Sherman MD [facility]-47892 Level 4 Est. Patient 22:18:12 CDT Tesfaye pearson MD [facility]-56657 Level 4 Est. Patient 14:44:33 COOKING APPLIANCE REPAIR TECHNICIAN Tesfaye pearson MD [facility] CPT-65989 Level 4 Est. Patient 13:55:29 COOKING APPLIANCE REPAIR TECHNICIAN Tesfaye pearson MD [facility] CPT-72140 Level 4 Est. Patient 17:07:34 COOKING APPLIANCE REPAIR TECHNICIAN Tesfaye pearson MD [facility] CPT-02549 Level 4 Est. Patient 13:56:54 CDT Tesfaye pearson MD [facility] CPT-79491 Level 4 Est. Patient 13:24:25 CDT Chelsea sanz APRN [facility] CPT-70893 Level 4 Est. Patient 09:14:56 CDT Tesfaye pearson MD [facility] CPT-51741 Level 4 Est. Patient 18:40:25 COOKING APPLIANCE REPAIR TECHNICIAN Tesfaye pearson MD [facility] CPT-37557 Level 4 Est. Patient 18:13:07 COOKING APPLIANCE REPAIR TECHNICIAN Tesfaye pearson MD [facility] CPT-59535 Level 3 Est. Patient 10:46:32 CDT Rj cotto DO [facility] CPT-48120 Level 4 Est. Patient 20:19:25 CDT Tesfaye pearson MD [facility] CPT-86550 Level 3 Est. Patient 09:07:31 CDT Tesfaye pearson MD [facility] CPT-56884 Level 4 Est. Patient 13:12:56 CDT Tesfaye pearson MD [facility] CPT-20281 Level 4 Est. Patient 21:24:55 COOKING APPLIANCE REPAIR TECHNICIAN Tesfaye pearson MD [facility] CPT-30566 Level 3 Est. Patient 13:45:04 COOKING APPLIANCE REPAIR TECHNICIAN Tesfaye pearson MD [facility] CPT-45211 Level 4 Est. Patient 13:50:45 CDT Tesfaye pearson MD [facility] CPT-11379 Level 3 Est. Patient 10:16:10 CDT Tesfaye pearson MD [facility]-38303 Level 3 Est. Patient 16:36:07 COOKING APPLIANCE REPAIR TECHNICIAN Kayla jameson MD [facility] CPT-90925 Level 4 Est. Patient 16:00:14 COOKING APPLIANCE REPAIR TECHNICIAN Tesfaye pearson MD [facility]-16806 Level 4 Est. Patient 11:02:24 COOKING APPLIANCE REPAIR TECHNICIAN Tesfaye pearson MD [facility] CPT-64316 Level 3 Est. Patient 20:21:43 COOKING APPLIANCE REPAIR TECHNICIAN Kalya jameson MD [facility]-80290 Level 3 Est. Patient 13:27:28 COOKING APPLIANCE REPAIR TECHNICIAN Kayla jameson MD [facility] CPT-06163 Level 4 Est. Patient 15:57:17 COOKING APPLIANCE REPAIR TECHNICIAN Tesfaye pearson MD [facility] CPT-99602 Level 3 New Patient 13:25:47 CDT Tesfaye kidd MD [facility] CPT-63594 Level 3 New Patient 17:22:21 CDT Kayla angel MD [facility] Procedures Code Procedure Name Date Entry Date Standard Desc ription CPT-86570 Bone Density - XRAY USE ONLY 15:21:33 CDT 2 CPT-10616 Venipuncture Draw Fee 16:12:22 CDT CPT-G0439 MC Subsequent Annual Wellness Exam 18:06:36 CDT CPT-G0439 Subsequent Annual Wellness Exam 22:18:11 CDT CPT-46617 Bone Density - XRAY USE ONLY 11:43:58 CDT 2 CPT-56026 Bone Density - XRAY USE ONLY 10:05:16 CDT CPT-96224 Prv Med New Pt 40-64 yrs 18:19:25 CDT 2016 CPT-47546 Foot, right, comp min 3V - XRAY USE ONLY 10:38:34 CDT CPT-G0439 Subsequent Annual Wellness Exam 13:55:04 CDT CPT-G0438 Initial Annual Wellness Exam 11:23:17 CD T CPT-J2930 Solu Medrol 125 mg (Methyl Prednisolone Sodium Succinate) 17:29:12 COOKING APPLIANCE REPAIR TECHNICIAN CPT-63086 Abx/Therapy Injection 17:29:11 COOKING APPLIANCE REPAIR TECHNICIAN CPT-J2930 Solu Medrol 125 mg (Methyl Prednisolone Sodium Succinate) 12:34:38 COOKING APPLIANCE REPAIR TECHNICIAN CPT-J3420 Vitamin B12 1000mcg (Cyanocobalamin) 09:12:55 CDT CPT-J3420 Vitamin B12 1000mcg (Cyanocobalamin) 16:28:06 COOKING APPLIANCE REPAIR TECHNICIAN CPT-80916 Venipuncture Draw Fee 08:39:53 CDT CPT-J3420 Vitamin B12 1000mcg (Cyanocobalamin) 08:46:22 CDT CPT-26556 Abx/Therapy Injection 08:46:22 CDT CPT-J3420 Vitamin B12 1000mcg (Cyanocobalamin) 08:41:26 CDT CPT-44246 Abx/Therapy Injection 08:41:26 CDT CPT-J3420 Vitamin B12 1000mcg (Cyanocobalamin) 08:57:15 CDT CPT-00863 Abx/Therapy Injection 08:57:15 CDT CPT-J3420 Vitamin B12 1000mcg (Cyanocobalamin) 10:59:03 CDT CPT-89155 Abx/Therapy Injection 10:59:03 CDT CPT-J3420 Vitamin B12 1000mcg (Cyanocobalamin) 15:05:39 CDT CPT-57830 Abx/Therapy Injection 15:05:39 CDT CPT-J3420 Vitamin B12 1000mcg (Cyanocobalamin) 13:50:45 CDT CPT-J3420 Vitamin B12 1000mcg (Cyanocobalamin) 08:48:55 CDT CPT-90474 Abx/Therapy Injection 08:48:55 CDT CPT-J3420 Vitamin B12 1000mcg (Cyanocobalamin) 09:14:54 CDT CPT-92228 Abx/Therapy Injection 09:14:54 CDT CPT-J3420 Vitamin B12 1000mcg (Cyanocobalamin) 09:06:06 CDT CPT-88357 Abx/Therapy Injection 09:06:06 CDT CPT-J3420 Vitamin B12 1000mcg (Cyanocobalamin) 09:49:14 CDT CPT-64439 Abx/Therapy Injection 09:49:14 CDT CPT-J3420 Vitamin B12 1000mcg (Cyanocobalamin) 09:10:30 COOKING APPLIANCE REPAIR TECHNICIAN CPT-60506 Abx/Therapy Injection 09:10:30 COOKING APPLIANCE REPAIR TECHNICIAN CPT-J3420 Vitamin B12 1000mcg (Cyanocobalamin) 09:11:07 COOKING APPLIANCE REPAIR TECHNICIAN CPT-21356 Abx/Therapy Injection 09:11:07 COOKING APPLIANCE REPAIR TECHNICIAN CPT-J3420 Vitamin B12 1000mcg (Cyanocobalamin) 09:57:03 COOKING APPLIANCE REPAIR TECHNICIAN CPT-74871 Abx/Therapy Injection 09:57:03 COOKING APPLIANCE REPAIR TECHNICIAN CPT-J3420 Vitamin B12 1000mcg (Cyanocobalamin) 09:23:21 COOKING APPLIANCE REPAIR TECHNICIAN CPT-39658 Abx/Therapy Injection 09:23:21 COOKING APPLIANCE REPAIR TECHNICIAN CPT-17771 Urine Dip (Floor Use Only) 20:21:44 COOKING APPLIANCE REPAIR TECHNICIAN 201 02/12/11 CPT-92569 UA Dip Auto (Floor Use Only) 10:04:39 COOKING APPLIANCE REPAIR TECHNICIAN 2 CPT-06588 Urine Dip (Floor Use Only) 13:27:28 COOKING APPLIANCE REPAIR TECHNICIAN 201 02/12/01 CPT-35310 Bladder Scan 13:27:28 COOKING APPLIANCE REPAIR TECHNICIAN CPT-44617 Abd single AP View 14:30:51 COOKING APPLIANCE REPAIR TECHNICIAN CPT-OV Office Visit 10:15:43 CDT CPT-11130 Urine Dip (Floor Use Only) 17:22:21 CDT 201 02/09/02 CPT-99803 Bladder Scan 17:22:21 CDT
--- OUTSIDE RECORDS SUMMARY | 2020-05-05 11:08 | XMS REPORT | Clinical Summary ---
Author Author Talon, Jeri Wood Organization [employer] Address Unknown Phone Unavailable Allergies, Adverse Reactions, [...] Sherman MD Routine general medical examination at 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 Edema Peripheral neuropathy 356.9 Active Tesfaye lamb [...] mouth daily for yeast infect ion FLUCONAZOLE 85598202070 No Longer Active Laurence Dominguez Acti ve PREDNISONE 20 MG ORAL TABLET 1 tab twice daily for 3 d ay, then one daily for three days PREDNISONE 78465021326 Active Tesfaye Sherman MD Active ZITHROMAX 250 MG ORAL TABLET 2 po today, then 1 po q days 2-5 20 21/08/28 AZITHROMYCIN 90858174637 No Longer Active Tesfaye Sherman MD Active DIFLUCAN 100 MG ORAL TABLET 1 tablet by mouth daily 20 21/08/28 FLUCONAZOLE 94767230318 No Longer Active Tesfaye Sherman MD Acti ve UNISOM SLEEPMELTS 25 MG ORAL TABLET DISINTEGRATING 1.5 po q hs 201 07/13/28 DIPHENHYDRAMINE HCL (SLEEP) 75062578569 Active Tesfaye Sherman MD Active HYDROXYZINE HCL 25 MG ORAL TABLET 1 tab po at HS prn sleep 08/02 HYDROXYZINE HCL 38642119359 No Longer Active Tesfaye Sherman MD Active MIRAPEX 0.5 MG ORAL TABLET 1 tablet at night for restless leg. 2018 PRAMIPEXOLE DIHYDROCHLORIDE 84473034852 Active Laurence Dominguez Active MIRAPEX 0.25 MG ORAL TABLET 1 tablet by mouth at night for r estless leg PRAMIPEXOLE DIHYDROCHLORIDE 83628641140 No Longer Act trent Laurence Dominguez Active MIRAPEX 0.125 MG ORAL TABLET 1 po nightly PRAMIPEXOLE DIHYDROCHLORIDE 72134203766 No Longer Active Laurence Dominguez Active ROPINIROLE HCL 2 MG ORAL TABLET 1 po at hs ROPI NIROLE HCL 98802843578 No Longer Active Laurence Dominguez Active ROPINIROLE HCL 1 MG ORAL TABLET 1 tab po q hs ROPINIROLE HCL 42957749197 No Longer Active Laurence Dominguez Active ROPINIROLE HCL 0.5 MG ORAL TABLET 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 ROPINIROLE HCL 72746175703 No Longer Active MARCUS Panchal Active ROPINIROLE HCL 0.25 MG ORAL TABLET 1 TAB PO Q HS 05/31 ROPINIROLE HCL 54202801868 No Longer Active Tesfaye Sherman MD Ac tive PREDNISONE 20 MG ORAL TABLET 1 tab twice daily for 3 d ay, then one daily for three days PREDNISONE 72826824432 No Longer Active Tesfaye Sherman MD Active AMITRIPTYLINE HCL 50 MG ORAL TABLET 1 po q hs for sleep AMITRIPTYLINE HCL 35432885935 No Longer Active Tesfaye Sherman MD Active AMITRIPTYLINE HCL 10 MG ORAL TABLET 1 tablet nightly by mout h for neuropathy AMITRIPTYLINE HCL 38915437929 No Longer Active MARCUS Stapleton Active DIFLUCAN 100 MG ORAL TABLET 1 tablet by mouth daily 20 21/03/11 FLUCONAZOLE 00873183269 No Longer Active Tesfaye Sherman MD Acti ve BACTRIM DS 800-160 MG ORAL TABLET 1 tab by mouth twice daily 201 07/08/06 TRIMETHOPRIM-SULFAMETHOXAZOLE 78826904031 No Longer Active Yanet Sherman MD Active CLARITIN 10 MG ORAL TABLET Take one by mouth daily LORATADINE 89985658154 Active Tesfaye Sherman MD Active SUDAFED 12 HOUR 120 MG ORAL TABLET EXTENDED RELEASE 12 HOUR 1 pill twice daily if needed for congestion PSEUDOEPHEDRINE HCL 845807766 13 No Longer Active Tesfaye Sherman MD Active FENOFIBRATE 145 MG ORAL TABLET 1 by mouth daily FENOFIBRATE 88717049263 Active Laurence Dominguez Active GABAPENTIN 300 MG ORAL CAPSULE 1 po daily GABAP ENTIN 92453148511 No Longer Active Tesfaye Sherman MD Active HYDROCHLOROTHIAZIDE 12.5 MG ORAL CAPSULE 1 pill by mough daily 2 HYDROCHLOROTHIAZIDE 12854696000 No Longer Active León Mariee GASOLINE LOCOMOTIVE CRANE OPERATOR Active VENLAFAXINE HCL 75 MG ORAL TABLET 1 am 1/2 at noon 201 07/07/09 VENLAFAXINE HCL 37189828173 No Longer Active León Mariee GASOLINE LOCOMOTIVE CRANE OPERATOR Act trent DIFLUCAN 100 MG ORAL TABLET 1 tablet by mouth daily 19/02/09 FLUCONAZOLE 11713753126 No Longer Active León Kodi GASOLINE 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 Use sparingly OXYCODONE-ACETAMINOPHEN 57651724598 Active Tesfaye villar MD Active CLONAZEPAM 0.5 MG ORAL TABLET Take 1/2 qam, and 1/2 qpm CLONAZEPAM 15923303025 Active Tesfaye Sherman MD Active PRELIEF 340 (65-50) MG (CA-P) ORAL TABLET CALCIUM GLYCEROPHOSPHATE 15119889610 No Longer Active Tesfaye Sherman MD Active SUDAFED 24 HOUR 240 MG ORAL TABLET EXTENDED RELEASE 24 HOUR 1 tab po daily PSEUDOEPHEDRINE HCL 89903379732 No Longer Active Raul yanet Sherman MD Active RED YEAST RICE 600 MG ORAL CAPSULE 1 pill by mouth daily RED YEAST RICE EXTRACT 76996027639 No Longer Active Tesfaye Sherman MD Active REPHRESH PRO-B ORAL CAPSULE 1 tablet daily LACT OBACILLUS 23872528142 No Longer Active Tesfaye Sherman MD Active ABILIFY 2 MG ORAL TABLET 1 by mouth daily. MARIA ELENA PIPRAZOLE 09622155796 Active Tesfaye Sherman MD Active CYMBALTA 60 MG ORAL CAPSULE DELAYED RELEASE PARTICLES 1 cap by mouth daily for pain DULOXETINE HCL 60284544765 Active MARCUS Lindsay Active DIFLUCAN 100 MG ORAL TABLET 1 tablet by mouth daily 20 20/06/06 FLUCONAZOLE 60932131518 No Longer Active Tesfaye Sherman MD Acti ve PREDNISONE 20 MG ORAL TABLET 1 tablet by mouth twice d aily for 3 days, then 1 tablet daily for 3 days PREDNISONE 21195998935 No L onger Active Tesfaye Sherman MD Active BACTRIM DS 800-160 MG ORAL TABLET 1 tab by mouth twice daily 201 06/09/02 TRIMETHOPRIM-SULFAMETHOXAZOLE 48332364876 No Longer Active A mirna Angelica Active DIFLUCAN 100 MG ORAL TABLET 1 tablet by mouth daily 20 20/05/01 FLUCONAZOLE 15977586042 No Longer Active Tesfaye Sherman MD Acti ve ZITHROMAX 250 MG ORAL TABLET 2 po today, then 1 po q days 2-5 20 20/04/28 AZITHROMYCIN 79975457001 No Longer Active Tesfaye Sherman MD Active MECLIZINE HCL 25 MG ORAL TABLET one tab po qday prn dizziness 20 17/09/06 MECLIZINE HCL 90250660206 No Longer Active Tesfaye Sherman MD Active PROAIR HFA 108 (90 BASE) MCG/ACT INHALATION AEROSOL SO LUTION 1 puff every 6 hours as needed ALBUTEROL SULFATE 72125716983 No Long er Active Tesfaye Sherman MD Active PREDNISONE 20 MG ORAL TABLET 1 tab twice daily for 3 d ay, then one daily for three days PREDNISONE 55767136703 No Longer Active Tesfaye Sherman MD Active MECLIZINE HCL 25 MG ORAL TABLET one 4 times a day as needed for dizziness MECLIZINE HCL 55565324692 Active Tesfaye Sherman MD Active AMOXICILLIN 500 MG ORAL CAPSULE 1 cap by mouth three times a day AMOXICILLIN 61438622071 No Longer Active Laurence Raida Acti ve DIFLUCAN 100 MG ORAL TABLET 1 tablet by mouth daily 20 19/08/26 FLUCONAZOLE 16704348204 No Longer Active Tesfaye Sherman MD Acti ve BACTRIM DS 800-160 MG ORAL TABLET 1 tab by mouth twice daily 201 05/10/28 TRIMETHOPRIM-SULFAMETHOXAZOLE 72401652220 No Longer Active Fer mirna Lopezduyen Active FOSAMAX 70 MG ORAL TABLET 1 po qweek. Take 30min prio r to first food/drink. Avoid lying down x 1 hour. ALENDRONATE SODIUM 93308035 144 No Longer Active Laurence Raduyen Active CYMBALTA 60 MG ORAL CAPSULE DELAYED RELEASE PARTICLES Take 1 tablet by mouth daily DULOXETINE HCL 68731896446 No Longer Active Edith Burch MD Active CYMBALTA 30 MG ORAL CAPSULE DELAYED RELEASE PARTICLES 1 cap by mouth daily with 60mg DULOXETINE HCL 66245647812 No Longer Active oJrdan Burch MD Active FISH OIL 1000 MG ORAL CAPSULE DELAYED RELEASE 1 pill b y mouth daily for cholesterol OMEGA-3 FATTY ACIDS 47808597352 Active Cee Jaffe LPN Active DIFLUCAN 100 MG ORAL TABLET 1 tablet by mouth daily 20 19/03/05 FLUCONAZOLE 84934678628 No Longer Active Tesfaye Sherman MD Acti ve BACTRIM DS 800-160 MG ORAL TABLET 1 tab by mouth twice daily 201 05/06/28 TRIMETHOPRIM-SULFAMETHOXAZOLE 22511044728 No Longer Active Yanet Sherman MD Active BACTRIM DS 800-160 MG ORAL TABLET 1 tab by mouth twice daily 201 05/04/15 TRIMETHOPRIM-SULFAMETHOXAZOLE 50054382930 No Longer Active Yanet Sherman MD Active DIFLUCAN 150 MG ORAL TABLET 1 tablet by mouth daily 20 18/09/20 FLUCONAZOLE 78897924748 No Longer Active Tesfaye Sherman MD Acti ve BACTRIM DS 800-160 MG ORAL TABLET 1 tab by mouth twice daily 201 04/13/17 TRIMETHOPRIM-SULFAMETHOXAZOLE 41069893199 No Longer Active Yanet Sherman MD Active CEFTIN 250 MG ORAL TABLET 1 tablet twice daily x 7 days CEFUROXIME AXETIL 26602175101 No Longer Active Tesfaye Sherman MD Active DIFLUCAN 100 MG ORAL TABLET 1 tablet by mouth every other da y for 2 doses FLUCONAZOLE 90366375932 No Longer Active Tesfaye barron MD Active DIFLUCAN 100 MG ORAL TABLET 1 tablet by mouth daily X 3 DAYS 201 04/09/01 FLUCONAZOLE 51249335393 No Longer Active Rj Ravi MIRTAZAPINE 15 MG ORAL TABLET 1/2 tab by mouth at bedtime. 03/13 MIRTAZAPINE 01070088089 No Longer Active Tesfaye Sherman MD Active BACTRIM DS 800-160 MG ORAL TABLET 1 tab by mouth twice daily 201 04/09/01 TRIMETHOPRIM-SULFAMETHOXAZOLE 93079046302 No Longer Active Yanet Sherman MD Active PRAMIPEXOLE DIHYDROCHLORIDE 0.125 MG ORAL TABLET take 1 tablet po qhs for restless leg syndrome. PRAMIPEXOLE DIHYDROCHLORI DE 73398641700 No Longer Active Tesfaye Sherman MD Active MAGNESIUM 400 MG ORAL TABLET 1 tab po daily MAGNE SIUM 21994931305 Active Chelsea Cardenas APRN Active CETIRIZINE HCL 5 MG ORAL TABLET Take 1 tablet by mouth daily CETIRIZINE HCL 00150591472 No Longer Active Chelsea Cardenas APRN Activ e TRIMETHOPRIM 100 MG ORAL TABLET 1/2 qd TRIM ETHOPRIM 08027643158 No Longer Active Chelsea Cardenas APRN Active BACTRIM DS 800-160 MG ORAL TABLET 1 tab by mouth twice daily 201 04/04/11 TRIMETHOPRIM-SULFAMETHOXAZOLE 02210450533 No Longer Active Yanet Sherman MD Active BACTRIM DS 800-160 MG ORAL TABLET 1 tab by mouth twice daily X 10 DAYS TRIMETHOPRIM-SULFAMETHOXAZOLE 42276193033 No Longer Active Tesfaye Sherman MD Active AMOXICILLIN 500 MG ORAL CAPSULE 1 cap by mouth three times a day AMOXICILLIN 44238029553 No Longer Active Adriana Arredondo Fer [place] ctive B-12 1000 MCG ORAL LOZENGE 1 tab po daily CYANO COBALAMIN 09770099545 Active Tesfaye Sherman MD Active VITAMIN D3 2000 UNIT ORAL TABLET 1 daily, for vitamin D deficien cy CHOLECALCIFEROL 61024479038 No Longer Active Tesfaye Sherman MD Active TIZANIDINE HCL 2 MG ORAL TABLET take 1-[address] [facility] every day at bedtime at 9pm PRN TIZANIDINE HCL 15400498161 Active Tesfaye hewitt MD Active ZITHROMAX 250 MG ORAL TABLET 2 po today, then 1 po q days 2-5 20 15/02/10 AZITHROMYCIN 66649873961 No Longer Active Tesfaye Sherman MD Active BACTRIM DS 800-160 MG ORAL TABLET 1 tab by mouth twice daily 201 03/03/23 TRIMETHOPRIM-SULFAMETHOXAZOLE 37378131542 No Longer Active Yanet Sherman MD Active [facility] NIACIN FLUSH FREE 400-100 MG ORAL CAPSULE 1 daily NIACIN-INOSITOL 66954753970 Active Kayla Cooper MD Activ e DIFLUCAN 150 MG ORAL TABLET 1 qd FLUCONAZOL E 40366054657 No Longer Active Kayla Cooper MD Active FLUTICASONE PROPIONATE 50 MCG/ACT NASAL SUSPENSION 1 spray each nostril twice daily FLUTICASONE PROPIONATE 67066813238 Active Yanet Sherman MD Active LOVASTATIN 20 MG ORAL TABLET Take 1 tablet by mouth daily LOVASTATIN 22403864385 No Longer Active Tesfaye Sherman MD Acti ve MELOXICAM 7.5 MG ORAL TABLET 1 tablet by mouth daily 2 MELOXICAM 18102325175 No Longer Active Tesfaye Sherman MD Acti ve GABAPENTIN 300 MG ORAL CAPSULE Take two tablets by mouth every e vening GABAPENTIN 15501660083 No Longer Active Edith Burch MD A ctive BACLOFEN 10 MG ORAL TABLET Take one tablet by mouth three times a d ay BACLOFEN 37408570571 Active Kayla Cooper MD Active GABAPENTIN 300 MG ORAL CAPSULE Take two tablets by mouth every e vening GABAPENTIN 300 MG ORAL CAPSULE 809247 GABAPENTIN I nactive MELOXICAM 7.5 MG ORAL TABLET 1 tablet by mouth daily 2 MELOXICAM 7.5 MG ORAL TABLET 255007 MELOXICAM Inactive LOVASTATIN 20 MG ORAL TABLET Take 1 tablet by mouth daily LOVASTATIN 20 MG ORAL TABLET 035171 LOVASTATIN Inactive DIFLUCAN 150 MG ORAL TABLET 1 qd DIFLUCAN 150 MG ORAL TABLET 752357 FLUCONAZOLE Inactive VITAMIN D3 2000 UNIT ORAL TABLET 1 daily, for vitamin D deficien cy VITAMIN D3 2000 UNIT ORAL TABLET CHOLECALCIFEROL Inactive AMOXICILLIN 500 MG ORAL CAPSULE 1 cap by mouth three times a day AMOXICILLIN 500 MG ORAL CAPSULE 089539 AMOXICILLIN Inactive BACTRIM DS 800-160 MG ORAL TABLET 1 tab by mouth twice daily X 10 DAYS BACTRIM DS 800-160 MG ORAL TABLET 047109 TRIMETHOPRIM-SULFAMETHOXAZOLE Inactive TRIMETHOPRIM 100 MG ORAL TABLET 1/2 qd 7 TRIMETHOPRIM 100 MG ORAL TABLET 757603 TRIMETHOPRIM Inactive CETIRIZINE HCL 5 MG ORAL TABLET Take 1 tablet by mouth daily CETIRIZINE HCL 5 MG ORAL TABLET 3164137 CETIRIZINE HCL Inactive PRAMIPEXOLE DIHYDROCHLORIDE 0.125 MG ORAL TABLET take 1 tablet po qhs for restless leg syndrome. PRAMIPEXOLE DIHYD ROCHLORIDE 0.125 MG ORAL TABLET 369278 PRAMIPEXOLE DIHYDROCHLORIDE Inactive MIRTAZAPINE 15 MG ORAL TABLET 1/2 tab by mouth at bedtime. 03/13 MIRTAZAPINE 15 MG ORAL TABLET 405518 MIRTAZAPINE In active DIFLUCAN 100 MG ORAL [...] 30 MG ORAL CAPSULE DELAYED RELEASE PARTICLES 135562 DULOXETINE HCL Inactive CYMBALTA 60 MG ORAL CAPSULE DELAYED RELEASE PARTICLES Take 1 tablet by mouth daily CYMBALTA 60 MG ORAL CAPSULE DELAYED RELEA SE PARTICLES 888729 DULOXETINE HCL Inactive FOSAMAX 70 MG ORAL TABLET 1 po qweek. Take 30min prio r to first food/drink. Avoid lying down x 1 hour. FOSAMAX 70 MG ORAL TA BLET 831227 ALENDRONATE SODIUM Inactive DIFLUCAN 100 MG ORAL TABLET 1 tablet by mouth daily 19/08/26 DIFLUCAN 100 MG ORAL TABLET 581079 FLUCONAZOLE Inactive PREDNISONE 20 MG ORAL TABLET 1 tab twice daily for 3 d ay, then one daily for three days PREDNISONE 20 MG ORAL TABLET 698544 PREDNIS ONE Inactive PROAIR HFA 108 (90 BASE) MCG/ACT INHALATION AEROSOL SO LUTION 1 puff every 6 hours as needed PROAIR HFA 108 (90 B ASE) MCG/ACT INHALATION AEROSOL SOLUTION ALBUTEROL SULFATE Inactive MECLIZINE HCL 25 MG ORAL TABLET one tab po qday prn dizziness 20 17/09/06 MECLIZINE HCL 25 MG ORAL TABLET 733694 MECLIZINE HCL Inactive PREDNISONE 20 MG ORAL TABLET 1 tablet by mouth twice d aily for 3 days, then 1 tablet daily for 3 days PREDNISONE 20 MG ORAL TA BLET 378206 PREDNISONE Inactive DIFLUCAN 100 MG ORAL TABLET 1 tablet by mouth daily 20 20/06/06 DIFLUCAN 100 MG ORAL TABLET 19760711 FLUCONAZOLE Inactive REPHRESH PRO-B ORAL CAPSULE 1 tablet daily REPHRESH PRO-B ORAL CAPSULE LACTOBACILLUS Inactive RED YEAST RICE 600 MG ORAL CAPSULE 1 pill by mouth daily RED YEAST RICE 600 MG ORAL CAPSULE 735764 RED YEAST RICE EXTRACT In active SUDAFED [...] daily 19/02/09 DIFLUCAN 100 MG ORAL TABLET 193854 FLUCONAZOLE Inactive VENLAFAXINE HCL 75 MG ORAL TABLET 1 am 1/2 at noon 201 07/07/09 VENLAFAXINE HCL 75 MG ORAL TABLET 869697 VENLAFAXINE HCL Inacti ve GABAPENTIN 300 MG ORAL CAPSULE 1 po daily GABAPENTIN 300 MG ORAL CAPSULE 883694 GABAPENTIN Inactive SUDAFED 12 HOUR 120 MG ORAL TABLET EXTENDED RELEASE 12 HOUR 1 pill twice daily if needed for congestion SUDAFED 12 HOUR 120 MG ORAL TABLET EXTENDED RELEASE 12 HOUR PSEUDOEPHEDRINE HCL Inactive AMITRIPTYLINE HCL 10 MG ORAL TABLET 1 tablet nightly by mout h for neuropathy AMITRIPTYLINE HCL 10 MG ORAL TABLET 790407 AMITRIPTYLINE HCL Inactive AMITRIPTYLINE HCL 50 MG ORAL TABLET 1 po q hs for sleep AMITRIPTYLINE HCL 50 MG ORAL TABLET 416047 AMITRIPTYLINE HCL Inac tive PREDNISONE 20 MG ORAL TABLET 1 tab twice daily for 3 d ay, then one daily for three days PREDNISONE 20 MG ORAL TABLET 190773 PREDNIS ONE Inactive ROPINIROLE HCL 0.25 MG ORAL TABLET 1 TAB PO Q HS 05/31 ROPINIROLE HCL 0.25 MG ORAL TABLET 459224 ROPINIROLE HCL Inact trent ROPINIROLE HCL 0.5 MG ORAL TABLET 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 ROPINIROLE HCL 0.5 MG ORAL TABLET 634442 ROPINIR OLE HCL Inactive ROPINIROLE HCL 1 MG ORAL TABLET 1 tab po q hs ROPINIROLE HCL 1 MG ORAL TABLET 663529 ROPINIROLE HCL Inactive ROPINIROLE HCL 2 MG ORAL TABLET 1 po at hs 7 ROPINIROLE HCL 2 MG ORAL TABLET 249479 ROPINIROLE HCL Inactive MIRAPEX 0.125 MG ORAL TABLET 1 po nightly MIRAPEX 0.125 MG ORAL TABLET 242987 PRAMIPEXOLE DIHYDROCHLORIDE Inactive MIRAPEX 0.25 MG ORAL TABLET 1 tablet by mouth at night for r estless leg MIRAPEX 0.25 MG ORAL TABLET 508653 PRAM IPEXOLE DIHYDROCHLORIDE Inactive HYDROXYZINE HCL 25 MG ORAL TABLET 1 tab po at HS prn sleep 08/02 HYDROXYZINE HCL 25 MG ORAL TABLET 994990 HYDROXYZINE HC L Inactive DIFLUCAN 100 MG ORAL TABLET 1 tablet by mouth daily 20 21/08/28 DIFLUCAN 100 MG ORAL TABLET 549063 FLUCONAZOLE Inactive BACTRIM DS 800-160 MG ORAL TABLET 1 tab by mouth twice daily 201 03/03/23 BACTRIM DS 800-160 MG ORAL TABLET 043313 TRIMETHOPRIM-SULFAMETHOXAZOLE Inactive ZITHROMAX 250 MG ORAL TABLET 2 po today, then 1 po q days 2-5 20 15/02/10 ZITHROMAX 250 MG ORAL TABLET 778171 AZITHROMYCIN Mayela ctive BACTRIM DS 800-160 MG ORAL TABLET 1 tab by mouth twice daily 201 04/04/11 BACTRIM DS 800-160 MG ORAL TABLET 117101 TRIMETHOPRIM-SULFAMETHOXAZOLE Inactive BACTRIM DS 800-160 MG ORAL [...] a day AMOXICILLIN 500 MG ORAL CAPSULE 237971 AMOXICILLIN Inactive ZITHROMAX 250 MG ORAL TABLET 2 po today, then 1 po q days 2-5 20 20/04/28 ZITHROMAX 250 MG ORAL TABLET 811872 AZITHROMYCIN Mayela ctive DIFLUCAN 100 MG ORAL TABLET 1 tablet by mouth daily 20 20/05/01 DIFLUCAN 100 MG ORAL TABLET 19760711 FLUCONAZOLE Inactive BACTRIM DS 800-160 MG ORAL TABLET 1 tab by mouth twice daily 201 06/09/02 BACTRIM DS 800-160 MG ORAL TABLET 19830105 TRIMETHOPRIM-SULFAMETHOXAZOLE Inactive HYDROCHLOROTHIAZIDE 12.5 MG ORAL CAPSULE 1 pill by mough daily 2 HYDROCHLOROTHIAZIDE 12.5 MG [facility] Inactive BACTRIM DS 800-160 MG ORAL TABLET 1 tab by mouth twice daily 201 07/08/06 BACTRIM DS 800-160 MG ORAL TABLET 647929 TRIMETHOPRIM-SULFAMETHOXAZOLE Inactive DIFLUCAN 100 MG ORAL TABLET 1 tablet by mouth daily 21/03/11 DIFLUCAN 100 MG ORAL TABLET 19760711 FLUCONAZOLE Inactive ZITHROMAX 250 MG ORAL TABLET 2 po today, then 1 po q days 2-5 20 21/08/28 ZITHROMAX 250 MG ORAL TABLET 228938 AZITHROMYCIN Rogers ctive FLUCONAZOLE 100 MG ORAL TABLET 1 by mouth daily for yeast infect ion FLUCONAZOLE 100 MG ORAL TABLET 19760711 FLUCONAZOLE I nactive Advance Directives Directive Description Start Date PERMISSION TO SHARE DISCUSSED WITH PATIENT -- NO DECISION MADE DISCUSED WITH PATIENT -- FULL CODE LIVING WILL ON FILE DURABLE 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 Patient 18:06:36 CDT Tesfaye pearson MD [facility] CPT-71863 [id number] Vst-Est Level IV 17:09:34 C BRIDGET Sherman MD [facility] CPT-37992 Level 3 Est. Patient 17:27:08 CDT León heranndez APRN [facility] CPT-82308 [id number] Vst-Est Level IV 14:00:[address] Tesfaye Sherman MD [facility] CPT-39690 [id number] Vst-Est Level IV 19:27:[address] Tesfaye Sherman MD [facility] CPT-52721 [id number] Vst-Est Level IV 10:41:41 C DT Tesfaye Sherman MD [facility] CPT-91203 [id number] Vst-Est Level III 09:40:56 CDT Tesfaye Sherman MD [facility]-00109 Level 4 Est. Patient 22:18:12 CDT Tesfaye pearson MD [facility]-80336 Level 4 Est. Patient 14:44:33 SCRAP CHARGER Tesfaye pearson MD [facility] CPT-42628 Level 4 Est. Patient 13:55:29 SCRAP CHARGER Tesfaye pearson MD [facility] CPT-31237 Level 4 Est. Patient 17:07:34 SCRAP CHARGER Tesfaye pearson MD [facility] CPT-84020 Level 4 Est. Patient 13:56:54 CDT Tesfaye pearson MD [facility] CPT-92882 Level 4 Est. Patient 13:24:25 CDT Chelsea sanz APRN [facility] CPT-57300 Level 4 Est. Patient 09:14:56 CDT Tesfaye pearson MD [facility] CPT-56083 Level 4 Est. Patient 18:40:25 SCRAP CHARGER Tesfaye pearson MD [facility] CPT-75194 Level 4 Est. Patient 18:13:07 SCRAP CHARGER Tesfaye pearson MD [facility] CPT-69107 Level 3 Est. Patient 10:46:32 CDT Rj cotto DO [facility] CPT-80488 Level 4 Est. Patient 20:19:25 CDT Tesfaye pearson MD [facility] CPT-91495 Level 3 Est. Patient 09:07:31 CDT Tesfaye pearson MD [facility] CPT-76911 Level 4 Est. Patient 13:12:56 CDT Tesfaye pearson MD [facility] CPT-02231 Level 4 Est. Patient 21:24:55 SCRAP CHARGER Tesfaye pearson MD [facility] CPT-77574 Level 3 Est. Patient 13:45:04 SCRAP CHARGER Tesfaye pearson MD [facility] CPT-90591 Level 4 Est. Patient 13:50:45 CDT Tesfaye pearson MD [facility] CPT-59828 Level 3 Est. Patient 10:16:10 CDT Tesfaye paerson MD [facility]-48661 Level 3 Est. Patient 16:36:07 SCRAP CHARGER Kayla jameson MD [facility] CPT-68421 Level 4 Est. Patient 16:00:14 SCRAP CHARGER Tesfaye pearson MD [facility]-77794 Level 4 Est. Patient 11:02:24 SCRAP CHARGER Tesfaye pearson MD [facility] CPT-70552 Level 3 Est. Patient 20:21:43 SCRAP CHARGER Kayla jameson MD [facility]-35897 Level 3 Est. Patient 13:27:28 SCRAP CHARGER Kayla jameson MD [facility] CPT-02889 Level 4 Est. Patient 15:57:17 SCRAP CHARGER Tesfaye pearson MD [facility] CPT-92452 Level 3 New Patient 13:25:47 CDT Tesfaye kidd MD [facility] CPT-03616 Level 3 New Patient 17:22:21 CDT Kayla angel MD [facility] Procedures Code Procedure Name Date Entry Date Standard Desc ription CPT-06178 Bone Density - XRAY USE ONLY 15:21:33 CDT 2 CPT-83774 Venipuncture Draw Fee 16:12:22 CDT CPT-G0439 MC Subsequent Annual Wellness Exam 18:06:36 CDT CPT-G0439 Subsequent Annual Wellness Exam 22:18:11 CDT CPT-14680 Bone Density - XRAY USE ONLY 11:43:58 CDT 2 CPT-18035 Bone Density - XRAY USE ONLY 10:05:16 CDT CPT-70325 Prv Med New Pt 40-64 yrs 18:19:25 CDT 2016 CPT-81726 Foot, right, comp min 3V - XRAY USE ONLY 10:38:34 CDT CPT-G0439 Subsequent Annual Wellness Exam 13:55:04 CDT CPT-G0438 Initial Annual Wellness Exam 11:23:17 CD T CPT-J2930 Solu Medrol 125 mg (Methyl Prednisolone Sodium Succinate) 17:29:12 SCRAP CHARGER CPT-88511 Abx/Therapy Injection 17:29:11 SCRAP CHARGER CPT-J2930 Solu Medrol 125 mg (Methyl Prednisolone Sodium Succinate) 12:34:38 SCRAP CHARGER CPT-J3420 Vitamin B12 1000mcg (Cyanocobalamin) 09:12:55 CDT CPT-J3420 Vitamin B12 1000mcg (Cyanocobalamin) 16:28:06 SCRAP CHARGER CPT-76377 Venipuncture Draw Fee 08:39:53 CDT CPT-J3420 Vitamin B12 1000mcg (Cyanocobalamin) 08:46:22 CDT CPT-15036 Abx/Therapy Injection 08:46:22 CDT CPT-J3420 Vitamin B12 1000mcg (Cyanocobalamin) 08:41:26 CDT CPT-53528 Abx/Therapy Injection 08:41:26 CDT CPT-J3420 Vitamin B12 1000mcg (Cyanocobalamin) 08:57:15 CDT CPT-09084 Abx/Therapy Injection 08:57:15 CDT CPT-J3420 Vitamin B12 1000mcg (Cyanocobalamin) 10:59:03 CDT CPT-93398 Abx/Therapy Injection 10:59:03 CDT CPT-J3420 Vitamin B12 1000mcg (Cyanocobalamin) 15:05:39 CDT CPT-56641 Abx/Therapy Injection 15:05:39 CDT CPT-J3420 Vitamin B12 1000mcg (Cyanocobalamin) 13:50:45 CDT CPT-J3420 Vitamin B12 1000mcg (Cyanocobalamin) 08:48:55 CDT CPT-67987 Abx/Therapy Injection 08:48:55 CDT CPT-J3420 Vitamin B12 1000mcg (Cyanocobalamin) 09:14:54 CDT CPT-38820 Abx/Therapy Injection 09:14:54 CDT CPT-J3420 Vitamin B12 1000mcg (Cyanocobalamin) 09:06:06 CDT CPT-29081 Abx/Therapy Injection 09:06:06 CDT CPT-J3420 Vitamin B12 1000mcg (Cyanocobalamin) 09:49:14 CDT CPT-71473 Abx/Therapy Injection 09:49:14 CDT CPT-J3420 Vitamin B12 1000mcg (Cyanocobalamin) 09:10:30 SCRAP CHARGER CPT-89351 Abx/Therapy Injection 09:10:30 SCRAP CHARGER CPT-J3420 Vitamin B12 1000mcg (Cyanocobalamin) 09:11:07 SCRAP CHARGER CPT-76307 Abx/Therapy Injection 09:11:07 SCRAP CHARGER CPT-J3420 Vitamin B12 1000mcg (Cyanocobalamin) 09:57:03 SCRAP CHARGER CPT-30551 Abx/Therapy Injection 09:57:03 SCRAP CHARGER CPT-J3420 Vitamin B12 1000mcg (Cyanocobalamin) 09:23:21 SCRAP CHARGER CPT-98896 Abx/Therapy Injection 09:23:21 SCRAP CHARGER CPT-58172 Urine Dip (Floor Use Only) 20:21:44 SCRAP CHARGER 201 02/12/11 CPT-04025 UA Dip Auto (Floor Use Only) 10:04:39 SCRAP CHARGER 2 CPT-33504 Urine Dip (Floor Use Only) 13:27:28 SCRAP CHARGER 201 02/12/01 CPT-71217 Bladder Scan 13:27:28 SCRAP CHARGER CPT-77258 Abd single AP View 14:30:51 SCRAP CHARGER CPT-OV Office Visit 10:15:43 CDT CPT-66322 Urine Dip (Floor Use Only) 17:22:21 CDT 201 02/09/02 CPT-09326 Bladder Scan 17:22:21 CDT
--- OUTSIDE RECORDS SUMMARY | 2020-05-05 11:09 | XMS REPORT | Clinical Summary ---
Author Author Talon, Jeri Wood Organization [employer] Address Unknown Phone Unavailable Allergies, Adverse Reactions, [...] Routine general medical examination at [facility] acility Sinusitis 461.9 Resolved Tesfaye [...] Tesfaye Sherman MD Dysuria High risk meds half-way use V58.6 Active Tesfaye Sherman MD Long-term (current) drug use Yeast infection 112.9 Inactive Tesfaye Sherman MD Candidiasis of unspecified site Upper respiratory infection 465.9 Inactive Tesfaye Sherman MD Acute upper respiratory infections of un specified site Lower extremity edema, bilateral 782.3 Active 201 07/07/09 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 Edema Peripheral neuropathy 356.9 Active Tesfaye [...] mouth daily for yeast infect ion FLUCONAZOLE 67651996823 No Longer Active Laurence Dominguez Acti ve PREDNISONE 20 MG ORAL TABLET 1 tab twice daily for 3 d ay, then one daily for three days PREDNISONE 22166327727 Active Tesfaye Sherman MD Active ZITHROMAX 250 MG ORAL TABLET 2 po today, then 1 po q days 2-5 20 21/08/28 AZITHROMYCIN 11645644320 No Longer Active Tesfaye Sherman MD Active DIFLUCAN 100 MG ORAL TABLET 1 tablet by mouth daily 20 21/08/28 FLUCONAZOLE 36526419236 No Longer Active Tesfaye Sherman MD Acti ve UNISOM SLEEPMELTS 25 MG ORAL TABLET DISINTEGRATING 1.5 po q hs 201 07/13/28 DIPHENHYDRAMINE HCL (SLEEP) 66106308240 Active Tesfaye Sherman MD Active HYDROXYZINE HCL 25 MG ORAL TABLET 1 tab po at HS prn sleep 08/02 HYDROXYZINE HCL 38693877424 No Longer Active Tesfaye Sherman MD Active MIRAPEX 0.5 MG ORAL TABLET 1 tablet at night for restless leg. 2018 PRAMIPEXOLE DIHYDROCHLORIDE 82285111076 Active Laurence Dominguez Active MIRAPEX 0.25 MG ORAL TABLET 1 tablet by mouth at night for r estless leg PRAMIPEXOLE DIHYDROCHLORIDE 60449508758 No Longer Act trent Lauernce Dominguez Active MIRAPEX 0.125 MG ORAL TABLET 1 po nightly PRAMIPEXOLE DIHYDROCHLORIDE 36020841430 No Longer Active Laurence Dominguez Active ROPINIROLE HCL 2 MG ORAL TABLET 1 po at hs ROPI NIROLE HCL 31485697161 No Longer Active Laurence Dominguez Active ROPINIROLE HCL 1 MG ORAL TABLET 1 tab po q hs ROPINIROLE HCL 41063420533 No Longer Active Laurence Dominguez Active ROPINIROLE HCL 0.5 MG ORAL TABLET 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 ROPINIROLE HCL 22329293946 No Longer Active MARCUS Panchal Active ROPINIROLE HCL 0.25 MG ORAL TABLET 1 TAB PO Q HS 05/31 ROPINIROLE HCL 38666665545 No Longer Active Tesfaye Sherman MD Ac tive PREDNISONE 20 MG ORAL TABLET 1 tab twice daily for 3 d ay, then one daily for three days PREDNISONE 67724009438 No Longer Active Tesfaye Sherman MD Active AMITRIPTYLINE HCL 50 MG ORAL TABLET 1 po q hs for sleep AMITRIPTYLINE HCL 88650666269 No Longer Active Tesfaye Sherman MD Active AMITRIPTYLINE HCL 10 MG ORAL TABLET 1 tablet nightly by mout h for neuropathy AMITRIPTYLINE HCL 29593545140 No Longer Active MARCUS Stapleton Active DIFLUCAN 100 MG ORAL TABLET 1 tablet by mouth daily 20 21/03/11 FLUCONAZOLE 04542682743 No Longer Active Tesfaye Sherman MD Acti ve BACTRIM DS 800-160 MG ORAL TABLET 1 tab by mouth twice daily 201 07/08/06 TRIMETHOPRIM-SULFAMETHOXAZOLE 53489560481 No Longer Active Yanet Sherman MD Active CLARITIN 10 MG ORAL TABLET Take one by mouth daily LORATADINE 33420941761 Active Tesfaye Sherman MD Active SUDAFED 12 HOUR 120 MG ORAL TABLET EXTENDED RELEASE 12 HOUR 1 pill twice daily if needed for congestion PSEUDOEPHEDRINE HCL 214698890 13 No Longer Active Tesfaye Sherman MD Active FENOFIBRATE 145 MG ORAL TABLET 1 by mouth daily FENOFIBRATE 86657929014 Active Laurence Dominguez Active GABAPENTIN 300 MG ORAL CAPSULE 1 po daily GABAP ENTIN 92080025350 No Longer Active Tesfaye Sherman MD Active HYDROCHLOROTHIAZIDE 12.5 MG ORAL CAPSULE 1 pill by mough daily 2 HYDROCHLOROTHIAZIDE 30581679368 No Longer Active León Mariee VACUUM FORM OPERATOR Active VENLAFAXINE HCL 75 MG ORAL TABLET 1 am 1/2 at noon 201 07/07/09 VENLAFAXINE HCL 33258354278 No Longer Active León Mariee VACUUM FORM OPERATOR Act trent DIFLUCAN 100 MG ORAL TABLET 1 tablet by mouth daily 19/02/09 FLUCONAZOLE 45085103865 No Longer Active 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 Active DIFLUCAN 100 MG ORAL TABLET 1 tablet by mouth daily 19/02/09 FLUCONAZOLE 40524427422 No Longer Active León Mariee APRN Active OXYCODONE-ACETAMINOPHEN 5-325 MG ORAL TABLET Take one tablet by mouth every 6 hours 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 Use sparingly OXYCODONE-ACETAMINOPHEN 23107653645 Active Tesfaye villar MD Active CLONAZEPAM 0.5 MG ORAL TABLET Take 1/2 qam, and 1/2 qpm CLONAZEPAM 34897980838 Active Tesfaye Sherman MD Active PRELIEF 340 (65-50) MG (CA-P) ORAL TABLET CALCIUM GLYCEROPHOSPHATE 22729495652 No Longer Active Tesfaye Sherman MD Active SUDAFED 24 HOUR 240 MG ORAL TABLET EXTENDED RELEASE 24 HOUR 1 tab po daily PSEUDOEPHEDRINE HCL 83983281087 No Longer Active Raul yanet Sherman MD Active RED YEAST RICE 600 MG ORAL CAPSULE 1 pill by mouth daily RED YEAST RICE EXTRACT 65220141339 No Longer Active Tesfaye Sherman MD Active REPHRESH PRO-B ORAL CAPSULE 1 tablet daily LACT OBACILLUS 56417251206 No Longer Active Tesfaye Sherman MD Active ABILIFY 2 MG ORAL TABLET 1 by mouth daily. MARIA ELENA PIPRAZOLE 98026519110 Active Tesfaye Sherman MD Active CYMBALTA 60 MG ORAL CAPSULE DELAYED RELEASE PARTICLES 1 cap by mouth daily for pain DULOXETINE HCL 52835055062 Active MARCUS Lindsay Active DIFLUCAN 100 MG ORAL TABLET 1 tablet by mouth daily 20 20/06/06 FLUCONAZOLE 03342003959 No Longer Active Tesfaye Sherman MD Acti ve PREDNISONE 20 MG ORAL TABLET 1 tablet by mouth twice d aily for 3 days, then 1 tablet daily for 3 days PREDNISONE 15616157378 No L onger Active Tesfaye Sherman MD Active BACTRIM DS 800-160 MG ORAL TABLET 1 tab by mouth twice daily 201 06/09/02 TRIMETHOPRIM-SULFAMETHOXAZOLE 58742446519 No Longer Active A mirna Angelica Active DIFLUCAN 100 MG ORAL TABLET 1 tablet by mouth daily 20 20/05/01 FLUCONAZOLE 52425045500 No Longer Active Tesfaye Sherman MD Acti ve ZITHROMAX 250 MG ORAL TABLET 2 po today, then 1 po q days 2-5 20 20/04/28 AZITHROMYCIN 98057818587 No Longer Active Tesfaye Sherman MD Active MECLIZINE HCL 25 MG ORAL TABLET one tab po qday prn dizziness 20 17/09/06 MECLIZINE HCL 96805056750 No Longer Active Tesfaye Sherman MD Active PROAIR HFA 108 (90 BASE) MCG/ACT INHALATION AEROSOL SO LUTION 1 puff every 6 hours as needed ALBUTEROL SULFATE 23186827901 No Long er Active Tesfaye Sherman MD Active PREDNISONE 20 MG ORAL TABLET 1 tab twice daily for 3 d ay, then one daily for three days PREDNISONE 65528332444 No Longer Active Tesfaye Sherman MD Active MECLIZINE HCL 25 MG ORAL TABLET one 4 times a day as needed for dizziness MECLIZINE HCL 41177373311 Active Tesfaye Sherman MD Active AMOXICILLIN 500 MG ORAL CAPSULE 1 cap by mouth three times a day AMOXICILLIN 24303095119 No Longer Active Laurence Raida Acti ve DIFLUCAN 100 MG ORAL TABLET 1 tablet by mouth daily 20 19/08/26 FLUCONAZOLE 28610366338 No Longer Active Tesfaye Sherman MD Acti ve BACTRIM DS 800-160 MG ORAL TABLET 1 tab by mouth twice daily 201 05/10/28 TRIMETHOPRIM-SULFAMETHOXAZOLE 36007193166 No Longer Active Fer mirna Lopezduyen Active FOSAMAX 70 MG ORAL TABLET 1 po qweek. Take 30min prio r to first food/drink. Avoid lying down x 1 hour. ALENDRONATE SODIUM 86514962 144 No Longer Active Laurence Raduyen Active CYMBALTA 60 MG ORAL CAPSULE DELAYED RELEASE PARTICLES Take 1 tablet by mouth daily DULOXETINE HCL 83190038563 No Longer Active Edith Burch MD Active CYMBALTA 30 MG ORAL CAPSULE DELAYED RELEASE PARTICLES 1 cap by mouth daily with 60mg DULOXETINE HCL 15455783620 No Longer Active Jordan Burch MD Active FISH OIL 1000 MG ORAL CAPSULE DELAYED RELEASE 1 pill b y mouth daily for cholesterol OMEGA-3 FATTY ACIDS 03915283131 Active Cee Jaffe LPN Active DIFLUCAN 100 MG ORAL TABLET 1 tablet by mouth daily 20 19/03/05 FLUCONAZOLE 79767428759 No Longer Active Tesfaye Sherman MD Acti ve BACTRIM DS 800-160 MG ORAL TABLET 1 tab by mouth twice daily 201 05/06/28 TRIMETHOPRIM-SULFAMETHOXAZOLE 97995872823 No Longer Active Yanet Sherman MD Active BACTRIM DS 800-160 MG ORAL TABLET 1 tab by mouth twice daily 201 05/04/15 TRIMETHOPRIM-SULFAMETHOXAZOLE 02262533461 No Longer Active Yanet Sherman MD Active DIFLUCAN 150 MG ORAL TABLET 1 tablet by mouth daily 20 18/09/20 FLUCONAZOLE 87846442170 No Longer Active Tesfaye Sherman MD Acti ve BACTRIM DS 800-160 MG ORAL TABLET 1 tab by mouth twice daily 201 04/13/17 TRIMETHOPRIM-SULFAMETHOXAZOLE 36283309945 No Longer Active Yanet Sherman MD Active CEFTIN 250 MG ORAL TABLET 1 tablet twice daily x 7 days CEFUROXIME AXETIL 93362009451 No Longer Active Tesfaye Sherman MD Active DIFLUCAN 100 MG ORAL TABLET 1 tablet by mouth every other da y for 2 doses FLUCONAZOLE 23158864450 No Longer Active Tesfaye barron MD Active DIFLUCAN 100 MG ORAL TABLET 1 tablet by mouth daily X 3 DAYS 201 04/09/01 FLUCONAZOLE 06008465939 No Longer Active Rj Ravi MIRTAZAPINE 15 MG ORAL TABLET 1/2 tab by mouth at bedtime. 03/13 MIRTAZAPINE 97954000084 No Longer Active Tesfaye Sherman MD Active BACTRIM DS 800-160 MG ORAL TABLET 1 tab by mouth twice daily 201 04/09/01 TRIMETHOPRIM-SULFAMETHOXAZOLE 96204544744 No Longer Active Yanet Sherman MD Active PRAMIPEXOLE DIHYDROCHLORIDE 0.125 MG ORAL TABLET take 1 tablet po qhs for restless leg syndrome. PRAMIPEXOLE DIHYDROCHLORI DE 58618202503 No Longer Active Tesfaye Sherman MD Active MAGNESIUM 400 MG ORAL TABLET 1 tab po daily MAGNE SIUM 92324615400 Active Chelsea Cardenas APRN Active CETIRIZINE HCL 5 MG ORAL TABLET Take 1 tablet by mouth daily CETIRIZINE HCL 53188185286 No Longer Active Chelsea Cardenas APRN Activ e TRIMETHOPRIM 100 MG ORAL TABLET 1/2 qd TRIM ETHOPRIM 34939766288 No Longer Active Chelsea Cardenas APRN Active BACTRIM DS 800-160 MG ORAL TABLET 1 tab by mouth twice daily 201 04/04/11 TRIMETHOPRIM-SULFAMETHOXAZOLE 95950783480 No Longer Active Yanet Sherman MD Active BACTRIM DS 800-160 MG ORAL TABLET 1 tab by mouth twice daily X 10 DAYS TRIMETHOPRIM-SULFAMETHOXAZOLE 98184418841 No Longer Active Tesfaye Sherman MD Active AMOXICILLIN 500 MG ORAL CAPSULE 1 cap by mouth three times a day AMOXICILLIN 75689324193 No Longer Active Adriana Arredondo Fer [place] ctive B-12 1000 MCG ORAL LOZENGE 1 tab po daily CYANO COBALAMIN 95138167200 Active Tesfaye Sherman MD Active VITAMIN D3 2000 UNIT ORAL TABLET 1 daily, for vitamin D deficien cy CHOLECALCIFEROL 02811812295 No Longer Active Tesfaye Sherman MD Active TIZANIDINE HCL 2 MG ORAL TABLET take 1-2 tablet by [facility] every day at bedtime at 9pm PRN TIZANIDINE HCL 59656912808 Active Tesfaye hewitt MD Active ZITHROMAX 250 MG ORAL TABLET 2 po today, then 1 po q days 2-5 20 15/02/10 AZITHROMYCIN 03361289012 No Longer Active Tesfaye Sherman MD Active BACTRIM DS 800-160 MG ORAL TABLET 1 tab by mouth twice daily 201 03/03/23 TRIMETHOPRIM-SULFAMETHOXAZOLE 68396990102 No Longer Active Yanet Sherman MD Active [facility] NIACIN FLUSH FREE 400-100 MG ORAL CAPSULE 1 daily NIACIN-INOSITOL 38721643284 Active Kayla Cooper MD Activ e DIFLUCAN 150 MG ORAL TABLET 1 qd FLUCONAZOL E 41360241840 No Longer Active Kayla Cooper MD Active FLUTICASONE PROPIONATE 50 MCG/ACT NASAL SUSPENSION 1 spray each nostril twice daily FLUTICASONE PROPIONATE 32910873878 Active Yanet Sherman MD Active LOVASTATIN 20 MG ORAL TABLET Take 1 tablet by mouth daily LOVASTATIN 59621617103 No Longer Active Tesfaye Sherman MD Acti ve MELOXICAM 7.5 MG ORAL TABLET 1 tablet by mouth daily 2 MELOXICAM 20573616360 No Longer Active Tesfaye Sherman MD Acti ve GABAPENTIN 300 MG ORAL CAPSULE Take two tablets by mouth every e vening GABAPENTIN 57377013455 No Longer Active Edith Burch MD A ctive BACLOFEN 10 MG ORAL TABLET Take one tablet by mouth three times a d ay BACLOFEN 06787500210 Active Kayla Cooper MD Active GABAPENTIN 300 MG ORAL CAPSULE Take two tablets by mouth every e vening GABAPENTIN 300 MG ORAL CAPSULE 620313 GABAPENTIN I nactive MELOXICAM 7.5 MG ORAL TABLET 1 tablet by mouth daily 2 MELOXICAM 7.5 MG ORAL TABLET 389057 MELOXICAM Inactive LOVASTATIN 20 MG ORAL TABLET Take 1 tablet by mouth daily LOVASTATIN 20 MG ORAL TABLET 718080 LOVASTATIN Inactive DIFLUCAN 150 MG ORAL TABLET 1 qd DIFLUCAN 150 MG ORAL TABLET 200303 FLUCONAZOLE Inactive VITAMIN D3 2000 UNIT ORAL TABLET 1 daily, for vitamin D deficien cy VITAMIN D3 2000 UNIT ORAL TABLET CHOLECALCIFEROL Inactive AMOXICILLIN 500 MG ORAL CAPSULE 1 cap by mouth three times a day AMOXICILLIN 500 MG ORAL CAPSULE 788141 AMOXICILLIN Inactive BACTRIM DS 800-160 MG ORAL TABLET 1 tab by mouth twice daily X 10 DAYS BACTRIM DS 800-160 MG ORAL TABLET 247899 TRIMETHOPRIM-SULFAMETHOXAZOLE Inactive TRIMETHOPRIM 100 MG ORAL TABLET 1/2 qd 7 TRIMETHOPRIM 100 MG ORAL TABLET 253656 TRIMETHOPRIM Inactive CETIRIZINE HCL 5 MG ORAL TABLET Take 1 tablet by mouth daily CETIRIZINE HCL 5 MG ORAL TABLET 1696578 CETIRIZINE HCL Inactive PRAMIPEXOLE DIHYDROCHLORIDE 0.125 MG ORAL TABLET take 1 tablet po qhs for restless leg syndrome. PRAMIPEXOLE DIHYD ROCHLORIDE 0.125 MG ORAL TABLET 778019 PRAMIPEXOLE DIHYDROCHLORIDE Inactive MIRTAZAPINE 15 MG ORAL TABLET 1/2 tab by mouth at bedtime. 03/13 MIRTAZAPINE 15 MG ORAL TABLET 397966 MIRTAZAPINE In active DIFLUCAN 100 MG ORAL [...] 30 MG ORAL CAPSULE DELAYED RELEASE PARTICLES 809374 DULOXETINE HCL Inactive CYMBALTA 60 MG ORAL CAPSULE DELAYED RELEASE PARTICLES Take 1 tablet by mouth daily CYMBALTA 60 MG ORAL CAPSULE DELAYED RELEA SE PARTICLES 505807 DULOXETINE HCL Inactive FOSAMAX 70 MG ORAL TABLET 1 po qweek. Take 30min prio r to first food/drink. Avoid lying down x 1 hour. FOSAMAX 70 MG ORAL TA BLET 429983 ALENDRONATE SODIUM Inactive DIFLUCAN 100 MG ORAL TABLET 1 tablet by mouth daily 19/08/26 DIFLUCAN 100 MG ORAL TABLET 048883 FLUCONAZOLE Inactive PREDNISONE 20 MG ORAL TABLET 1 tab twice daily for 3 d ay, then one daily for three days PREDNISONE 20 MG ORAL TABLET 794360 PREDNIS ONE Inactive PROAIR HFA 108 (90 BASE) MCG/ACT INHALATION AEROSOL SO LUTION 1 puff every 6 hours as needed PROAIR HFA 108 (90 B ASE) MCG/ACT INHALATION AEROSOL SOLUTION ALBUTEROL SULFATE Inactive MECLIZINE HCL 25 MG ORAL TABLET one tab po qday prn dizziness 20 17/09/06 MECLIZINE HCL 25 MG ORAL TABLET 695337 MECLIZINE HCL Inactive PREDNISONE 20 MG ORAL TABLET 1 tablet by mouth twice d aily for 3 days, then 1 tablet daily for 3 days PREDNISONE 20 MG ORAL TA BLET 330999 PREDNISONE Inactive DIFLUCAN 100 MG ORAL TABLET 1 tablet by mouth daily 20 20/06/06 DIFLUCAN 100 MG ORAL TABLET 19760711 FLUCONAZOLE Inactive REPHRESH PRO-B ORAL CAPSULE 1 tablet daily REPHRESH PRO-B ORAL CAPSULE LACTOBACILLUS Inactive RED YEAST RICE 600 MG ORAL CAPSULE 1 pill by mouth daily RED YEAST RICE 600 MG ORAL CAPSULE 482474 RED YEAST RICE EXTRACT In active SUDAFED [...] daily 19/02/09 DIFLUCAN 100 MG ORAL TABLET 378720 FLUCONAZOLE Inactive VENLAFAXINE HCL 75 MG ORAL TABLET 1 am 1/2 at noon 201 07/07/09 VENLAFAXINE HCL 75 MG ORAL TABLET 655629 VENLAFAXINE HCL Inacti ve GABAPENTIN 300 MG ORAL CAPSULE 1 po daily GABAPENTIN 300 MG ORAL CAPSULE 614176 GABAPENTIN Inactive SUDAFED 12 HOUR 120 MG ORAL TABLET EXTENDED RELEASE 12 HOUR 1 pill twice daily if needed for congestion SUDAFED 12 HOUR 120 MG ORAL TABLET EXTENDED RELEASE 12 HOUR PSEUDOEPHEDRINE HCL Inactive AMITRIPTYLINE HCL 10 MG ORAL TABLET 1 tablet nightly by mout h for neuropathy AMITRIPTYLINE HCL 10 MG ORAL TABLET 645828 AMITRIPTYLINE HCL Inactive AMITRIPTYLINE HCL 50 MG ORAL TABLET 1 po q hs for sleep AMITRIPTYLINE HCL 50 MG ORAL TABLET 370869 AMITRIPTYLINE HCL Inac tive PREDNISONE 20 MG ORAL TABLET 1 tab twice daily for 3 d ay, then one daily for three days PREDNISONE 20 MG ORAL TABLET 449335 PREDNIS ONE Inactive ROPINIROLE HCL 0.25 MG ORAL TABLET 1 TAB PO Q HS 05/31 ROPINIROLE HCL 0.25 MG ORAL TABLET 955385 ROPINIROLE HCL Inact trent ROPINIROLE HCL 0.5 MG ORAL TABLET 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 ROPINIROLE HCL 0.5 MG ORAL TABLET 028186 ROPINIR OLE HCL Inactive ROPINIROLE HCL 1 MG ORAL TABLET 1 tab po q hs ROPINIROLE HCL 1 MG ORAL TABLET 638974 ROPINIROLE HCL Inactive ROPINIROLE HCL 2 MG ORAL TABLET 1 po at hs 7 ROPINIROLE HCL 2 MG ORAL TABLET 703042 ROPINIROLE HCL Inactive MIRAPEX 0.125 MG ORAL TABLET 1 po nightly MIRAPEX 0.125 MG ORAL TABLET 618855 PRAMIPEXOLE DIHYDROCHLORIDE Inactive MIRAPEX 0.25 MG ORAL TABLET 1 tablet by mouth at night for r estless leg MIRAPEX 0.25 MG ORAL TABLET 403855 PRAM IPEXOLE DIHYDROCHLORIDE Inactive HYDROXYZINE HCL 25 MG ORAL TABLET 1 tab po at HS prn sleep 08/02 HYDROXYZINE HCL 25 MG ORAL TABLET 735711 HYDROXYZINE HC L Inactive DIFLUCAN 100 MG ORAL TABLET 1 tablet by mouth daily 20 21/08/28 DIFLUCAN 100 MG ORAL TABLET 273895 FLUCONAZOLE Inactive BACTRIM DS 800-160 MG ORAL TABLET 1 tab by mouth twice daily 201 03/03/23 BACTRIM DS 800-160 MG ORAL TABLET 236819 TRIMETHOPRIM-SULFAMETHOXAZOLE Inactive ZITHROMAX 250 MG ORAL TABLET 2 po today, then 1 po q days 2-5 20 15/02/10 ZITHROMAX 250 MG ORAL TABLET 694103 AZITHROMYCIN May[place] ctive BACTRIM DS 800-160 MG ORAL TABLET 1 tab by mouth twice daily 201 04/04/11 BACTRIM DS 800-160 MG ORAL TABLET 462902 TRIMETHOPRIM-SULFAMETHOXAZOLE Inactive BACTRIM DS 800-160 MG ORAL [...] a day AMOXICILLIN 500 MG ORAL CAPSULE 601528 AMOXICILLIN Inactive ZITHROMAX 250 MG ORAL TABLET 2 po today, then 1 po q days 2-5 20 20/04/28 ZITHROMAX 250 MG ORAL TABLET 863722 AZITHROMYCIN Mayela ctive DIFLUCAN 100 MG ORAL TABLET 1 tablet by mouth daily 20 20/05/01 DIFLUCAN 100 MG ORAL TABLET 19760711 FLUCONAZOLE Inactive BACTRIM DS 800-160 MG ORAL TABLET 1 tab by mouth twice daily 201 06/09/02 BACTRIM DS 800-160 MG ORAL TABLET 19830105 TRIMETHOPRIM-SULFAMETHOXAZOLE Inactive HYDROCHLOROTHIAZIDE 12.5 MG ORAL CAPSULE 1 pill by mough daily 2 HYDROCHLOROTHIAZIDE 12.5 MG [facility]LE [facility] Inactive BACTRIM DS 800-160 MG ORAL TABLET 1 tab by mouth twice daily 201 07/08/06 BACTRIM DS 800-160 MG ORAL TABLET 129065 TRIMETHOPRIM-SULFAMETHOXAZOLE Inactive DIFLUCAN 100 MG ORAL TABLET 1 tablet by mouth daily 21/03/11 DIFLUCAN 100 MG ORAL TABLET 19760711 FLUCONAZOLE Inactive ZITHROMAX 250 MG ORAL TABLET 2 po today, then 1 po q days 2-5 20 21/08/28 ZITHROMAX 250 MG ORAL TABLET 027082 AZITHROMYCIN [place] ctive FLUCONAZOLE 100 MG ORAL TABLET 1 by mouth daily for yeast infect ion FLUCONAZOLE 100 MG ORAL TABLET 19760711 FLUCONAZOLE I nactive Advance Directives Directive Description Start Date PERMISSION TO SHARE DISCUSSED WITH PATIENT -- NO DECISION MADE DISCUSED WITH PATIENT -- FULL CODE LIVING WILL ON FILE DURABLE POWER OF MEDIA CONSULTANT OUTSIDE SALES FOR HEALTHCARE Vital Signs Date Name Value [...] Magnesium - Chemistry cholesterol, serum 196 mg/dL 349-854 3789/07/30 triglyceride, serum, fasting 86 mg/dL 30-200 HDL cholesterol, serum 41 mg/dL 32-60 LDL cholesterol, serum 138 mg/dL 0-130 sodium, serum 140 mmol/L 997-106 0318/07/30 carbon dioxide, venous blood 28.6 mmol/L 21.0-32 [...] 50-136 Encounters Code Encounter Date Provider Facility CPT-75471 [id number] Vst-Est Level IV 11:39:[address] Tesfaye Sherman MD [facility] CPT-15180 [id number] Vst-Est Level IV 14:08:03 C BRIDGET Sherman MD [facility] CPT-96156 Level 3 Est. Patient 18:06:36 CDT Tesfaye pearson MD [facility] CPT-81126 [id number] Vst-Est Level IV 17:09:34 C BRIDGET Sherman MD [facility] CPT-49119 Level 3 Est. Patient 17:27:08 CDT León hernandez APRN [facility] CPT-66542 [id number] Vst-Est Level IV 14:00:[address] Tesfaye Sherman MD [facility] CPT-73569 [id number] Vst-Est Level IV 19:27:[address] Tesfaye Sherman MD [facility] CPT-15384 [id number] Vst-Est Level IV 10:41:41 C DT Tesfaye Sherman MD [facility] CPT-28889 [id number] Vst-Est Level III 09:40:56 CDT Tesfaye Sherman MD [facility]-32485 Level 4 Est. Patient 22:18:12 CDT Tesfaye pearson MD [facility]-95536 Level 4 Est. Patient 14:44:33 ELECTROMECHANICAL EQUIPMENT TESTER Tesfaye pearson MD [facility] CPT-52896 Level 4 Est. Patient 13:55:29 ELECTROMECHANICAL EQUIPMENT TESTER Tesfaye pearson MD [facility] CPT-81368 Level 4 Est. Patient 17:07:34 ELECTROMECHANICAL EQUIPMENT TESTER Tesfaye pearson MD [facility] CPT-97712 Level 4 Est. Patient 13:56:54 CDT Tesfaye pearson MD [facility] CPT-48000 Level 4 Est. Patient 13:24:25 CDT Chelsea sanz APRN [facility] CPT-96744 Level 4 Est. Patient 09:14:56 CDT Tesfaye pearson MD [facility] CPT-16227 Level 4 Est. Patient 18:40:25 ELECTROMECHANICAL EQUIPMENT TESTER Tesfaye pearson MD [facility] CPT-72260 Level 4 Est. Patient 18:13:07 ELECTROMECHANICAL EQUIPMENT TESTER Tesfaye pearson MD [facility] CPT-65434 Level 3 Est. Patient 10:46:32 CDT Rj cotto DO [facility] CPT-20419 Level 4 Est. Patient 20:19:25 CDT Tesfaye pearson MD [facility] CPT-52133 Level 3 Est. Patient 09:07:31 CDT Tesfaye pearson MD [facility] CPT-67265 Level 4 Est. Patient 13:12:56 CDT Tesfaye pearson MD [facility] CPT-77152 Level 4 Est. Patient 21:24:55 ELECTROMECHANICAL EQUIPMENT TESTER Tesfaye pearson MD [facility] CPT-89526 Level 3 Est. Patient 13:45:04 ELECTROMECHANICAL EQUIPMENT TESTER Tesfaye pearson MD [facility] CPT-85730 Level 4 Est. Patient 13:50:45 CDT Tesfaye pearson MD [facility] CPT-88202 Level 3 Est. Patient 10:16:10 CDT Tesfaye pearson MD [facility]-10592 Level 3 Est. Patient 16:36:07 ELECTROMECHANICAL EQUIPMENT TESTER Kayla jameson MD [facility] CPT-52468 Level 4 Est. Patient 16:00:14 ELECTROMECHANICAL EQUIPMENT TESTER Tesfaye pearson MD [facility]-72535 Level 4 Est. Patient 11:02:24 ELECTROMECHANICAL EQUIPMENT TESTER Tesfaye pearson MD [facility] CPT-07255 Level 3 Est. Patient 20:21:43 ELECTROMECHANICAL EQUIPMENT TESTER Kayla jameson MD [facility]-48567 Level 3 Est. Patient 13:27:28 ELECTROMECHANICAL EQUIPMENT TESTER Kayla jameson MD [facility] CPT-30671 Level 4 Est. Patient 15:57:17 ELECTROMECHANICAL EQUIPMENT TESTER Tesfaye pearson MD [facility] CPT-78348 Level 3 New Patient 13:25:47 CDT Tesfyae kidd MD [facility] CPT-30497 Level 3 New Patient 17:22:21 CDT Kayla angel MD [facility] Procedures Code Procedure Name Date Entry Date Standard Desc ription CPT-84954 Bone Density - XRAY USE ONLY 15:21:33 CDT 2 CPT-96519 Venipuncture Draw Fee 16:12:22 CDT CPT-G0439 MC Subsequent Annual Wellness Exam 18:06:36 CDT CPT-G0439 Subsequent Annual Wellness Exam 22:18:11 CDT CPT-64197 Bone Density - XRAY USE ONLY 11:43:58 CDT 2 CPT-74031 Bone Density - XRAY USE ONLY 10:05:16 CDT CPT-08648 Prv Med New Pt 40-64 yrs 18:19:25 CDT 2016 CPT-67180 Foot, right, comp min 3V - XRAY USE ONLY 10:38:34 CDT CPT-G0439 Subsequent Annual Wellness Exam 13:55:04 CDT CPT-G0438 Initial Annual Wellness Exam 11:23:17 CD T CPT-J2930 Solu Medrol 125 mg (Methyl Prednisolone Sodium Succinate) 17:29:12 ELECTROMECHANICAL EQUIPMENT TESTER CPT-62337 Abx/Therapy Injection 17:29:11 ELECTROMECHANICAL EQUIPMENT TESTER CPT-J2930 Solu Medrol 125 mg (Methyl Prednisolone Sodium Succinate) 12:34:38 ELECTROMECHANICAL EQUIPMENT TESTER CPT-J3420 Vitamin B12 1000mcg (Cyanocobalamin) 09:12:55 CDT CPT-J3420 Vitamin B12 1000mcg (Cyanocobalamin) 16:28:06 ELECTROMECHANICAL EQUIPMENT TESTER CPT-61971 Venipuncture Draw Fee 08:39:53 CDT CPT-J3420 Vitamin B12 1000mcg (Cyanocobalamin) 08:46:22 CDT CPT-30503 Abx/Therapy Injection 08:46:22 CDT CPT-J3420 Vitamin B12 1000mcg (Cyanocobalamin) 08:41:26 CDT CPT-25490 Abx/Therapy Injection 08:41:26 CDT CPT-J3420 Vitamin B12 1000mcg (Cyanocobalamin) 08:57:15 CDT CPT-40535 Abx/Therapy Injection 08:57:15 CDT CPT-J3420 Vitamin B12 1000mcg (Cyanocobalamin) 10:59:03 CDT CPT-92901 Abx/Therapy Injection 10:59:03 CDT CPT-J3420 Vitamin B12 1000mcg (Cyanocobalamin) 15:05:39 CDT CPT-22060 Abx/Therapy Injection 15:05:39 CDT CPT-J3420 Vitamin B12 1000mcg (Cyanocobalamin) 13:50:45 CDT CPT-J3420 Vitamin B12 1000mcg (Cyanocobalamin) 08:48:55 CDT CPT-85659 Abx/Therapy Injection 08:48:55 CDT CPT-J3420 Vitamin B12 1000mcg (Cyanocobalamin) 09:14:54 CDT CPT-00104 Abx/Therapy Injection 09:14:54 CDT CPT-J3420 Vitamin B12 1000mcg (Cyanocobalamin) 09:06:06 CDT CPT-32377 Abx/Therapy Injection 09:06:06 CDT CPT-J3420 Vitamin B12 1000mcg (Cyanocobalamin) 09:49:14 CDT CPT-30197 Abx/Therapy Injection 09:49:14 CDT CPT-J3420 Vitamin B12 1000mcg (Cyanocobalamin) 09:10:30 [employer]MENT [employer] CPT-18592 Abx/Therapy Injection 09:10:30 [employer]LECTROMECH[employer] EQUIPMENT TE[employer] CPT-J3420 Vitamin B12 1000mcg (Cyanocobalamin) 09:11:07 [employer]LECTROMECH[employer] EQUIPMENT TE[employer] CPT-91951 Abx/Therapy Injection 09:11:07 [employer]LECTROMECH[employer] EQUIPMENT TESTER CPT-J3420 Vitamin B12 1000mcg (Cyanocobalamin) 09:57:03 [employer]LECTROMECH[employer] EQUIPMENT TESTER CPT-72146 Abx/Therapy Injection 09:57:03 [employer]LECTROMECH[employer] EQUIPMENT TE[employer] CPT-J3420 Vitamin B12 1000mcg (Cyanocobalamin) 09:23:21 [employer]LECTROMECH[employer] EQUIPMENT TESTER CPT-14188 Abx/Therapy Injection 09:23:21 [employer]LECTROMECH[employer] EQUIPMENT TE[employer] CPT-54282 Urine Dip (Floor Use Only) 20:21:44 [employer]QUIPMENT [employer]STER 201 02/12/11 CPT-67756 UA Dip Auto (Floor Use Only) 10:04:39 [employer]QUIPMENT TESTER 2 CPT-19928 Urine Dip (Floor Use Only) 13:27:28 [employer]QUIPMENT [employer] 201 02/12/01 CPT-04632 Bladder Scan 13:27:28 [employer]QU[employer]MENT [employer] CPT-64330 Abd single AP View 14:30:51 [employer]MENT [employer] CPT-OV Office Visit 10:15:43 CDT CPT-60646 Urine Dip (Floor Use Only) 17:22:21 CDT 201 02/09/02 CPT-50642 Bladder Scan 17:22:21 CDT
--- OUTSIDE RECORDS SUMMARY | 2020-05-05 11:09 | XMS REPORT | Clinical Summary ---
Author Author Talon, Jeri Wood Organization [facility] Address Unknown Phone Unavailable Allergies, Adverse Reactions, Alerts Allergy Name Reaction Description Start Date Severity Status Pr ovider FOSAMAX Critical Active Tesfaye armenta MD PRAMIPEXOLE Critical Active Tesfaye villar MD CEFTIN Critical Active Tesfaye armenta MD CIPRO Critical Active Tesfaye armenta MD MIRTAZAPINE Bloating, edema, fatigue, muscle pain Moderate Active Tesfaye Sehrman MD MIRAPEX caused dizziness and weakness Moderate [...] diabetes mellitus U T I-Recurrent 599.0 Active Kyala Owusu Urinary tract infection, site not specified [...] malaise and fatigue Sinusitis 461.9 Active Tesfaye Sheramn MD Acute sinusitis, unspecified Interstitial Cystitis 595.1 Active Kayla richmond MD Chronic interstitial cystitis Preventive health care V70.0 Resolved Tesfaye Sherman MD Routine general medical examination at formerly [facility] acility Sinusitis 461.9 Resolved Tesfaye [...] MD Routine general medical examination at a [facility] acility Body Mass Index 21.0-21.9 Adult [...] Tesfaye Sherman MD Dysuria High risk meds longterm use V58.6 Active Tesfaye Sherman MD Long-term (current) drug use Yeast infection 112.9 Inactive Tesfaye Sherman MD Candidiasis of unspecified site Upper respiratory infection 465.9 Inactive Tesfaye Sherman MD Acute upper respiratory infections of un specified site Lower extremity edema, bilateral 782.3 Active 201 07/07/09 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 Peripheral neuropathy 356.9 Active Tesfaye lamb MD Unspecified hereditary and idiopathic peripheral neuropathy Restless leg syndrome 333.94 Active Tesfaye lamb MD Restless legs syndrome (RLS) FH Diabetes ICD-V18.0 Inactive Tesfaye Sherman MD 20 22/12/06 WELL WOMAN EXAMINATION ICD-V72.31 Inactive Wilner Sherman MD FH Depression ICD-V17.0 Inactive Tesfaye Sherman MD Preventive health care ICD-V70.0 Inactive [...] mouth daily for yeast infect ion FLUCONAZOLE 77549349760 No Longer Active Laurence Dominguez Acti ve PREDNISONE 20 MG ORAL TABLET 1 tab twice daily for 3 d ay, then one daily for three days PREDNISONE 00462279136 Active Tesfaye Sherman MD Active ZITHROMAX 250 MG ORAL TABLET 2 po today, then 1 po q days 2-5 20 21/08/28 AZITHROMYCIN 68710613036 No Longer Active Tesfaye Sherman MD Active DIFLUCAN 100 MG ORAL TABLET 1 tablet by mouth daily 20 21/08/28 FLUCONAZOLE 79015036354 No Longer Active Tesfaye Sherman MD Acti ve UNISOM SLEEPMELTS 25 MG ORAL TABLET DISINTEGRATING 1.5 po q hs 201 07/13/28 DIPHENHYDRAMINE HCL (SLEEP) 34662585728 Active Tesfaye Sherman MD Active HYDROXYZINE HCL 25 MG ORAL TABLET 1 tab po at HS prn sleep 08/02 HYDROXYZINE HCL 03151436295 No Longer Active Tesfaye Sherman MD Active MIRAPEX 0.5 MG ORAL TABLET 1 tablet at night for restless leg. 2018 PRAMIPEXOLE DIHYDROCHLORIDE 15730535552 Active Laurence Dominguez Active MIRAPEX 0.25 MG ORAL TABLET 1 tablet by mouth at night for r estless leg PRAMIPEXOLE DIHYDROCHLORIDE 72107891508 No Longer Act trent Laurence Domingeuz Active MIRAPEX 0.125 MG ORAL TABLET 1 po nightly PRAMIPEXOLE DIHYDROCHLORIDE 03079657453 No Longer Active Laurence Dominguez Active ROPINIROLE HCL 2 MG ORAL TABLET 1 po at hs ROPI NIROLE HCL 49860857833 No Longer Active Laurence Dominguez Active ROPINIROLE HCL 1 MG ORAL TABLET 1 tab po q hs ROPINIROLE HCL 66862321334 No Longer Active Laurence Dominguez Active ROPINIROLE HCL 0.5 MG ORAL TABLET 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 ROPINIROLE HCL 77719932938 No Longer Active MARCUS Panchal Active ROPINIROLE HCL 0.25 MG ORAL TABLET 1 TAB PO Q HS 05/31 ROPINIROLE HCL 16762535294 No Longer Active Tesfaye Sherman MD Ac tive PREDNISONE 20 MG ORAL TABLET 1 tab twice daily for 3 d ay, then one daily for three days PREDNISONE 50887850829 No Longer Active Tesfaye Sherman MD Active AMITRIPTYLINE HCL 50 MG ORAL TABLET 1 po q hs for sleep AMITRIPTYLINE HCL 12723053780 No Longer Active Tesfaye Sherman MD Active AMITRIPTYLINE HCL 10 MG ORAL TABLET 1 tablet nightly by mout h for neuropathy AMITRIPTYLINE HCL 08783619350 No Longer Active MARCUS Stapleton Active DIFLUCAN 100 MG ORAL TABLET 1 tablet by mouth daily 20 21/03/11 FLUCONAZOLE 78465066997 No Longer Active Tesfaye Sherman MD Acti ve BACTRIM DS 800-160 MG ORAL TABLET 1 tab by mouth twice daily 201 07/08/06 TRIMETHOPRIM-SULFAMETHOXAZOLE 51798091859 No Longer Active Yanet Sehrman MD Active CLARITIN 10 MG ORAL TABLET Take one by mouth daily LORATADINE 22400656415 Active Tesfaye Sherman MD Active SUDAFED 12 HOUR 120 MG ORAL TABLET EXTENDED RELEASE 12 HOUR 1 pill twice daily if needed for congestion PSEUDOEPHEDRINE HCL 319082517 13 No Longer Active Tesfaye Sherman MD Active FENOFIBRATE 145 MG ORAL TABLET 1 by mouth daily FENOFIBRATE 44320317494 Active Laurence Dominguez Active GABAPENTIN 300 MG ORAL CAPSULE 1 po daily GABAP ENTIN 41725270162 No Longer Active Tesfaye Sherman MD Active HYDROCHLOROTHIAZIDE 12.5 MG ORAL CAPSULE 1 pill by mough daily 2 HYDROCHLOROTHIAZIDE 20353005992 No Longer Active León Mariee HOOP DRIVING MACHINE OPERATOR HELPER Active VENLAFAXINE HCL 75 MG ORAL TABLET 1 am 1/2 at noon 201 07/07/09 VENLAFAXINE HCL 66923485254 No Longer Active León Mariee HOOP DRIVING MACHINE OPERATOR HELPER Act trent DIFLUCAN 100 MG ORAL TABLET 1 tablet by mouth daily 19/02/09 FLUCONAZOLE 06791854755 No Longer Active León Kodi HOOP DRIVING MACHINE OPERATOR HELPER Active DIFLUCAN 100 MG ORAL TABLET 1 tablet by mouth daily 19/02/09 FLUCONAZOLE 73917130349 No Longer Active León Mariee APRN Active OXYCODONE-ACETAMINOPHEN 5-325 MG ORAL TABLET Take one tablet by mouth every 6 hours 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 Use sparingly OXYCODONE-ACETAMINOPHEN 73845506814 Active Tesfaye villar MD Active CLONAZEPAM 0.5 MG ORAL TABLET Take 1/2 qam, and 1/2 qpm CLONAZEPAM 36164923884 Active Tesfaye Shermna MD Active PRELIEF 340 (65-50) MG (CA-P) ORAL TABLET CALCIUM GLYCEROPHOSPHATE 32084289294 No Longer Active Tesfaye Sherman MD Active SUDAFED 24 HOUR 240 MG ORAL TABLET EXTENDED RELEASE 24 HOUR 1 tab po daily PSEUDOEPHEDRINE HCL 08765157073 No Longer Active Raul yanet Sherman MD Active RED YEAST RICE 600 MG ORAL CAPSULE 1 pill by mouth daily RED YEAST RICE EXTRACT 20401121582 No Longer Active Tesfaye Sherman MD Active REPHRESH PRO-B ORAL CAPSULE 1 tablet daily LACT OBACILLUS 17731619346 No Longer Active Tesfaye Sherman MD Active ABILIFY 2 MG ORAL TABLET 1 by mouth daily. MARIA ELENA PIPRAZOLE 10678558391 Active Tesfaye Sherman MD Active CYMBALTA 60 MG ORAL CAPSULE DELAYED RELEASE PARTICLES 1 cap by mouth daily for pain DULOXETINE HCL 11482011497 Active MARCUS Lindsay Active DIFLUCAN 100 MG ORAL TABLET 1 tablet by mouth daily 20 20/06/06 FLUCONAZOLE 84662544234 No Longer Active Tesfaye Sherman MD Acti ve PREDNISONE 20 MG ORAL TABLET 1 tablet by mouth twice d aily for 3 days, then 1 tablet daily for 3 days PREDNISONE 02712195752 No L onger Active eTsfaye Sherman MD Active BACTRIM DS 800-160 MG ORAL TABLET 1 tab by mouth twice daily 201 06/09/02 TRIMETHOPRIM-SULFAMETHOXAZOLE 20693911254 No Longer Active A mirna Angelica Active DIFLUCAN 100 MG ORAL TABLET 1 tablet by mouth daily 20 20/05/01 FLUCONAZOLE 71223040551 No Longer Active Tesfaye Sherman MD Acti ve ZITHROMAX 250 MG ORAL TABLET 2 po today, then 1 po q days 2-5 20 20/04/28 AZITHROMYCIN 50708619870 No Longer Active Tesfaye Sherman MD Active MECLIZINE HCL 25 MG ORAL TABLET one tab po qday prn dizziness 20 17/09/06 MECLIZINE HCL 97557600995 No Longer Active Tsefaye Sherman MD Active PROAIR HFA 108 (90 BASE) MCG/ACT INHALATION AEROSOL SO LUTION 1 puff every 6 hours as needed ALBUTEROL SULFATE 57311280270 No Long er Active Tesfaye Sherman MD Active PREDNISONE 20 MG ORAL TABLET 1 tab twice daily for 3 d ay, then one daily for three days PREDNISONE 55643647273 No Longer Active Tesfaye Sherman MD Active MECLIZINE HCL 25 MG ORAL TABLET one 4 times a day as needed for dizziness MECLIZINE HCL 30859301002 Active Tesfaye Sherman MD Active AMOXICILLIN 500 MG ORAL CAPSULE 1 cap by mouth three times a day AMOXICILLIN 67894719187 No Longer Active Laurence Raida Acti ve DIFLUCAN 100 MG ORAL TABLET 1 tablet by mouth daily 20 19/08/26 FLUCONAZOLE 72848621669 No Longer Active Tesfaye Sherman MD Acti ve BACTRIM DS 800-160 MG ORAL TABLET 1 tab by mouth twice daily 201 05/10/28 TRIMETHOPRIM-SULFAMETHOXAZOLE 20309492394 No Longer Active Fer mirna Lopezduyen Active FOSAMAX 70 MG ORAL TABLET 1 po qweek. Take 30min prio r to first food/drink. Avoid lying down x 1 hour. ALENDRONATE SODIUM 91539964 144 No Longer Active Laurence Raduyen Active CYMBALTA 60 MG ORAL CAPSULE DELAYED RELEASE PARTICLES Take 1 tablet by mouth daily DULOXETINE HCL 17754512947 No Longer Active Edith Burch MD Active CYMBALTA 30 MG ORAL CAPSULE DELAYED RELEASE PARTICLES 1 cap by mouth daily with 60mg DULOXETINE HCL 77040402500 No Longer Active Jordan Burch MD Active FISH OIL 1000 MG ORAL CAPSULE DELAYED RELEASE 1 pill b y mouth daily for cholesterol OMEGA-3 FATTY ACIDS 34080735237 Active Cee Jaffe LPN Active DIFLUCAN 100 MG ORAL TABLET 1 tablet by mouth daily 20 19/03/05 FLUCONAZOLE 91283356461 No Longer Active Tesfaye Sherman MD Acti ve BACTRIM DS 800-160 MG ORAL TABLET 1 tab by mouth twice daily 201 05/06/28 TRIMETHOPRIM-SULFAMETHOXAZOLE 83545945281 No Longer Active Yanet Sherman MD Active BACTRIM DS 800-160 MG ORAL TABLET 1 tab by mouth twice daily 201 05/04/15 TRIMETHOPRIM-SULFAMETHOXAZOLE 31973669966 No Longer Active Yanet Sherman MD Active DIFLUCAN 150 MG ORAL TABLET 1 tablet by mouth daily 20 18/09/20 FLUCONAZOLE 41994284185 No Longer Active Tesfaye Sherman MD Acti ve BACTRIM DS 800-160 MG ORAL TABLET 1 tab by mouth twice daily 201 04/13/17 TRIMETHOPRIM-SULFAMETHOXAZOLE 87200249131 No Longer Active Yanet Sherman MD Active CEFTIN 250 MG ORAL TABLET 1 tablet twice daily x 7 days CEFUROXIME AXETIL 99507850535 No Longer Active Tesfaye Sherman MD Active DIFLUCAN 100 MG ORAL TABLET 1 tablet by mouth every other da y for 2 doses FLUCONAZOLE 67815670683 No Longer Active Tesfaye barron MD Active DIFLUCAN 100 MG ORAL TABLET 1 tablet by mouth daily X 3 DAYS 201 04/09/01 FLUCONAZOLE 27454194715 No Longer Active Rj Ravi MIRTAZAPINE 15 MG ORAL TABLET 1/2 tab by mouth at bedtime. 03/13 MIRTAZAPINE 89906410871 No Longer Active Tesfaye Sherman MD Active BACTRIM DS 800-160 MG ORAL TABLET 1 tab by mouth twice daily 201 04/09/01 TRIMETHOPRIM-SULFAMETHOXAZOLE 92342845400 No Longer Active Yanet Sherman MD Active PRAMIPEXOLE DIHYDROCHLORIDE 0.125 MG ORAL TABLET take 1 tablet po qhs for restless leg syndrome. PRAMIPEXOLE DIHYDROCHLORI DE 38342623881 No Longer Active Tesfaye Sherman MD Active MAGNESIUM 400 MG ORAL TABLET 1 tab po daily MAGNE SIUM 28728730421 Active Chelsea Cardenas APRN Active CETIRIZINE HCL 5 MG ORAL TABLET Take 1 tablet by mouth daily CETIRIZINE HCL 83420536754 No Longer Active Chelsea Cardenas APRN Activ e TRIMETHOPRIM 100 MG ORAL TABLET 1/2 qd TRIM ETHOPRIM 46392246880 No Longer Active Chelsea Cardenas APRN Active BACTRIM DS 800-160 MG ORAL TABLET 1 tab by mouth twice daily 201 04/04/11 TRIMETHOPRIM-SULFAMETHOXAZOLE 90307522785 No Longer Active Yanet Sherman MD Active BACTRIM DS 800-160 MG ORAL TABLET 1 tab by mouth twice daily X 10 DAYS TRIMETHOPRIM-SULFAMETHOXAZOLE 61543604085 No Longer Active Tesfaye Sherman MD Active AMOXICILLIN 500 MG ORAL CAPSULE 1 cap by mouth three times a day AMOXICILLIN 44726266891 No Longer Active Adriana Arredondo Fer [place] ctive B-12 1000 MCG ORAL LOZENGE 1 tab po daily CYANO COBALAMIN 72354009571 Active Tesfaye Sherman MD Active VITAMIN D3 2000 UNIT ORAL TABLET 1 daily, for vitamin D deficien cy CHOLECALCIFEROL 17993244759 No Longer Active Tesfaye Sherman MD Active TIZANIDINE HCL 2 MG ORAL TABLET take 1-[address] [facility] every day at bedtime at 9pm PRN TIZANIDINE HCL 41529527020 Active Tesfaye hewitt MD Active ZITHROMAX 250 MG ORAL TABLET 2 po today, then 1 po q days 2-5 20 15/02/10 AZITHROMYCIN 96765630607 No Longer Active Tesfaye Sherman MD Active BACTRIM DS 800-160 MG ORAL TABLET 1 tab by mouth twice daily 201 03/03/23 TRIMETHOPRIM-SULFAMETHOXAZOLE 70757309403 No Longer Active Yanet Sherman MD Active [facility] NIACIN FLUSH FREE 400-100 MG ORAL CAPSULE 1 daily NIACIN-INOSITOL 48319636081 Active Kayla Cooper MD Activ e DIFLUCAN 150 MG ORAL TABLET 1 qd FLUCONAZOL E 61131179762 No Longer Active Kayla Cooper MD Active FLUTICASONE PROPIONATE 50 MCG/ACT NASAL SUSPENSION 1 spray each nostril twice daily FLUTICASONE PROPIONATE 33819734028 Active Yanet Sherman MD Active LOVASTATIN 20 MG ORAL TABLET Take 1 tablet by mouth daily LOVASTATIN 45647846997 No Longer Active eTsfaye Sherman MD Acti ve MELOXICAM 7.5 MG ORAL TABLET 1 tablet by mouth daily 2 MELOXICAM 37372125999 No Longer Active Tesfaye Sherman MD Acti ve GABAPENTIN 300 MG ORAL CAPSULE Take two tablets by mouth every e vening GABAPENTIN 15294514001 No Longer Active Edith Burch MD A ctive BACLOFEN 10 MG ORAL TABLET Take one tablet by mouth three times a d ay BACLOFEN 11022502528 Active Kayla Cooper MD Active GABAPENTIN 300 MG ORAL CAPSULE Take two tablets by mouth every e vening GABAPENTIN 300 MG ORAL CAPSULE 002997 GABAPENTIN I nactive MELOXICAM 7.5 MG ORAL TABLET 1 tablet by mouth daily 2 MELOXICAM 7.5 MG ORAL TABLET 039238 MELOXICAM Inactive LOVASTATIN 20 MG ORAL TABLET Take 1 tablet by mouth daily LOVASTATIN 20 MG ORAL TABLET 124275 LOVASTATIN Inactive DIFLUCAN 150 MG ORAL TABLET 1 qd DIFLUCAN 150 MG ORAL TABLET 437510 FLUCONAZOLE Inactive VITAMIN D3 2000 UNIT ORAL TABLET 1 daily, for vitamin D deficien cy VITAMIN D3 2000 UNIT ORAL TABLET CHOLECALCIFEROL Inactive AMOXICILLIN 500 MG ORAL CAPSULE 1 cap by mouth three times a day AMOXICILLIN 500 MG ORAL CAPSULE 036745 AMOXICILLIN Inactive BACTRIM DS 800-160 MG ORAL TABLET 1 tab by mouth twice daily X 10 DAYS BACTRIM DS 800-160 MG ORAL TABLET 564392 TRIMETHOPRIM-SULFAMETHOXAZOLE Inactive TRIMETHOPRIM 100 MG ORAL TABLET 1/2 qd 7 TRIMETHOPRIM 100 MG ORAL TABLET 167819 TRIMETHOPRIM Inactive CETIRIZINE HCL 5 MG ORAL TABLET Take 1 tablet by mouth daily CETIRIZINE HCL 5 MG ORAL TABLET 5842003 CETIRIZINE HCL Inactive PRAMIPEXOLE DIHYDROCHLORIDE 0.125 MG ORAL TABLET take 1 tablet po qhs for restless leg syndrome. PRAMIPEXOLE DIHYD ROCHLORIDE 0.125 MG ORAL TABLET 035015 PRAMIPEXOLE DIHYDROCHLORIDE Inactive MIRTAZAPINE 15 MG ORAL TABLET 1/2 tab by mouth at bedtime. 03/13 MIRTAZAPINE 15 MG ORAL TABLET 211087 MIRTAZAPINE In active DIFLUCAN 100 MG ORAL [...] 30 MG ORAL CAPSULE DELAYED RELEASE PARTICLES 402544 DULOXETINE HCL Inactive CYMBALTA 60 MG ORAL CAPSULE DELAYED RELEASE PARTICLES Take 1 tablet by mouth daily CYMBALTA 60 MG ORAL CAPSULE DELAYED RELEA SE PARTICLES 654044 DULOXETINE HCL Inactive FOSAMAX 70 MG ORAL TABLET 1 po qweek. Take 30min prio r to first food/drink. Avoid lying down x 1 hour. FOSAMAX 70 MG ORAL TA BLET 308715 ALENDRONATE SODIUM Inactive DIFLUCAN 100 MG ORAL TABLET 1 tablet by mouth daily 19/08/26 DIFLUCAN 100 MG ORAL TABLET 212654 FLUCONAZOLE Inactive PREDNISONE 20 MG ORAL TABLET 1 tab twice daily for 3 d ay, then one daily for three days PREDNISONE 20 MG ORAL TABLET 214541 PREDNIS ONE Inactive PROAIR HFA 108 (90 BASE) MCG/ACT INHALATION AEROSOL SO LUTION 1 puff every 6 hours as needed PROAIR HFA 108 (90 B ASE) MCG/ACT INHALATION AEROSOL SOLUTION ALBUTEROL SULFATE Inactive MECLIZINE HCL 25 MG ORAL TABLET one tab po qday prn dizziness 20 17/09/06 MECLIZINE HCL 25 MG ORAL TABLET 975522 MECLIZINE HCL Inactive PREDNISONE 20 MG ORAL TABLET 1 tablet by mouth twice d aily for 3 days, then 1 tablet daily for 3 days PREDNISONE 20 MG ORAL TA BLET 144270 PREDNISONE Inactive DIFLUCAN 100 MG ORAL TABLET 1 tablet by mouth daily 20 20/06/06 DIFLUCAN 100 MG ORAL TABLET 19760711 FLUCONAZOLE Inactive REPHRESH PRO-B ORAL CAPSULE 1 tablet daily REPHRESH PRO-B ORAL CAPSULE LACTOBACILLUS Inactive RED YEAST RICE 600 MG ORAL CAPSULE 1 pill by mouth daily RED YEAST RICE 600 MG ORAL CAPSULE 786227 RED YEAST RICE EXTRACT In active SUDAFED [...] daily 19/02/09 DIFLUCAN 100 MG ORAL TABLET 039876 FLUCONAZOLE Inactive VENLAFAXINE HCL 75 MG ORAL TABLET 1 am 1/2 at noon 201 07/07/09 VENLAFAXINE HCL 75 MG ORAL TABLET 823671 VENLAFAXINE HCL Inacti ve GABAPENTIN 300 MG ORAL CAPSULE 1 po daily GABAPENTIN 300 MG ORAL CAPSULE 041837 GABAPENTIN Inactive SUDAFED 12 HOUR 120 MG ORAL TABLET EXTENDED RELEASE 12 HOUR 1 pill twice daily if needed for congestion SUDAFED 12 HOUR 120 MG ORAL TABLET EXTENDED RELEASE 12 HOUR PSEUDOEPHEDRINE HCL Inactive AMITRIPTYLINE HCL 10 MG ORAL TABLET 1 tablet nightly by mout h for neuropathy AMITRIPTYLINE HCL 10 MG ORAL TABLET 378392 AMITRIPTYLINE HCL Inactive AMITRIPTYLINE HCL 50 MG ORAL TABLET 1 po q hs for sleep AMITRIPTYLINE HCL 50 MG ORAL TABLET 690079 AMITRIPTYLINE HCL Inac tive PREDNISONE 20 MG ORAL TABLET 1 tab twice daily for 3 d ay, then one daily for three days PREDNISONE 20 MG ORAL TABLET 069845 PREDNIS ONE Inactive ROPINIROLE HCL 0.25 MG ORAL TABLET 1 TAB PO Q HS 05/31 ROPINIROLE HCL 0.25 MG ORAL TABLET 034938 ROPINIROLE HCL Inact trent ROPINIROLE HCL 0.5 MG ORAL TABLET 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 ROPINIROLE HCL 0.5 MG ORAL TABLET 823044 ROPINIR OLE HCL Inactive ROPINIROLE HCL 1 MG ORAL TABLET 1 tab po q hs ROPINIROLE HCL 1 MG ORAL TABLET 921151 ROPINIROLE HCL Inactive ROPINIROLE HCL 2 MG ORAL TABLET 1 po at hs 7 ROPINIROLE HCL 2 MG ORAL TABLET 726040 ROPINIROLE HCL Inactive MIRAPEX 0.125 MG ORAL TABLET 1 po nightly MIRAPEX 0.125 MG ORAL TABLET 268785 PRAMIPEXOLE DIHYDROCHLORIDE Inactive MIRAPEX 0.25 MG ORAL TABLET 1 tablet by mouth at night for r estless leg MIRAPEX 0.25 MG ORAL TABLET 994411 PRAM IPEXOLE DIHYDROCHLORIDE Inactive HYDROXYZINE HCL 25 MG ORAL TABLET 1 tab po at HS prn sleep 08/02 HYDROXYZINE HCL 25 MG ORAL TABLET 948641 HYDROXYZINE HC L Inactive DIFLUCAN 100 MG ORAL TABLET 1 tablet by mouth daily 20 21/08/28 DIFLUCAN 100 MG ORAL TABLET 296855 FLUCONAZOLE Inactive BACTRIM DS 800-160 MG ORAL TABLET 1 tab by mouth twice daily 201 03/03/23 BACTRIM DS 800-160 MG ORAL TABLET 885842 TRIMETHOPRIM-SULFAMETHOXAZOLE Inactive ZITHROMAX 250 MG ORAL TABLET 2 po today, then 1 po q days 2-5 20 15/02/10 ZITHROMAX 250 MG ORAL TABLET 294371 AZITHROMYCIN Mayela ctive BACTRIM DS 800-160 MG ORAL TABLET 1 tab by mouth twice daily 201 04/04/11 BACTRIM DS 800-160 MG ORAL TABLET 301423 TRIMETHOPRIM-SULFAMETHOXAZOLE Inactive BACTRIM DS 800-160 MG ORAL [...] a day AMOXICILLIN 500 MG ORAL CAPSULE 940491 AMOXICILLIN Inactive ZITHROMAX 250 MG ORAL TABLET 2 po today, then 1 po q days 2-5 20 20/04/28 ZITHROMAX 250 MG ORAL TABLET 280013 AZITHROMYCIN Mayela ctive DIFLUCAN 100 MG ORAL TABLET 1 tablet by mouth daily 20 20/05/01 DIFLUCAN 100 MG ORAL TABLET 19760711 FLUCONAZOLE Inactive BACTRIM DS 800-160 MG ORAL TABLET 1 tab by mouth twice daily 201 06/09/02 BACTRIM DS 800-160 MG ORAL TABLET 19830105 TRIMETHOPRIM-SULFAMETHOXAZOLE Inactive HYDROCHLOROTHIAZIDE 12.5 MG ORAL CAPSULE 1 pill by mough daily 2 HYDROCHLOROTHIAZIDE 12.5 MG [facility]SULE [facility] Inactive BACTRIM DS 800-160 MG ORAL TABLET 1 tab by mouth twice daily 201 07/08/06 BACTRIM DS 800-160 MG ORAL TABLET 174704 TRIMETHOPRIM-SULFAMETHOXAZOLE Inactive DIFLUCAN 100 MG ORAL TABLET 1 tablet by mouth daily 21/03/11 DIFLUCAN 100 MG ORAL TABLET 19760711 FLUCONAZOLE Inactive ZITHROMAX 250 MG ORAL TABLET 2 po today, then 1 po q days 2-5 20 21/08/28 ZITHROMAX 250 MG ORAL TABLET 440194 AZITHROMYCIN [place] ctive FLUCONAZOLE 100 MG ORAL TABLET 1 by mouth daily for yeast infect ion FLUCONAZOLE 100 MG ORAL TABLET 19760711 FLUCONAZOLE I nactive Advance Directives Directive Description Start Date PERMISSION TO SHARE DISCUSSED WITH PATIENT -- NO DECISION MADE DISCUSED WITH PATIENT -- FULL CODE LIVING WILL ON FILE DURABLE 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 Vital Signs Date Name Value [...] Magnesium - Chemistry cholesterol, serum 196 mg/dL 452-858 5547/07/30 triglyceride, serum, fasting 86 mg/dL 30-200 HDL cholesterol, serum 41 mg/dL 32-60 LDL cholesterol, serum 138 mg/dL 0-130 sodium, serum 140 mmol/L 304-782 8891/07/30 carbon dioxide, venous blood 28.6 mmol/L 21.0-32 [...] 50-136 Encounters Code Encounter Date Provider Facility CPT-11154 [id number] Vst-Est Level IV 11:39:[address] Tesfaye Sherman MD [facility] CPT-29759 [id number] Vst-Est Level IV 14:08:03 C BRIDGET Sherman MD [facility] CPT-47612 Level 3 Est. Patient 18:06:36 CDT Tesfaye pearson MD [facility] CPT-39627 [id number] Vst-Est Level IV 17:09:34 C BRIDGET Sherman MD [facility] CPT-09221 Level 3 Est. Patient 17:27:08 CDT León hernandez APRN [facility] CPT-37981 71804-Dpa Vst-Est Level IV 14:00:[address] Tesfaye Sherman MD [facility] CPT-93043 [id number] Vst-Est Level IV 19:27:[address] Tesfaye Sherman MD [facility] CPT-23253 [id number] Vst-Est Level IV 10:41:41 C DT Tesfaye Sherman MD [facility] CPT-93667 [id number] Vst-Est Level III 09:40:56 CDT Tesfaye Sherman MD [facility]-46819 Level 4 Est. Patient 22:18:12 CDT Tesfaye pearson MD [facility]-77787 Level 4 Est. Patient 14:44:33 EXTRAS CASTING DIRECTOR Tesfaye pearson MD [facility] CPT-17245 Level 4 Est. Patient 13:55:29 EXTRAS CASTING DIRECTOR Tesfaye pearson MD [facility] CPT-95932 Level 4 Est. Patient 17:07:34 EXTRAS CASTING DIRECTOR Tesfaye pearson MD [facility] CPT-58570 Level 4 Est. Patient 13:56:54 CDT Tesfaye pearson MD [facility] CPT-66582 Level 4 Est. Patient 13:24:25 CDT Chelsea sanz APRN [facility] CPT-24472 Level 4 Est. Patient 09:14:56 CDT Tesfaye pearson MD [facility] CPT-17265 Level 4 Est. Patient 18:40:25 EXTRAS CASTING DIRECTOR Tesfaye pearson MD [facility] CPT-11079 Level 4 Est. Patient 18:13:07 EXTRAS CASTING DIRECTOR Tesfaye pearson MD [facility] CPT-32461 Level 3 Est. Patient 10:46:32 CDT Rj cotto DO [facility] CPT-16163 Level 4 Est. Patient 20:19:25 CDT Tesfaye pearson MD [facility] CPT-60428 Level 3 Est. Patient 09:07:31 CDT Tesfaye pearson MD [facility] CPT-72296 Level 4 Est. Patient 13:12:56 CDT Tesfaye pearson MD [facility] CPT-52943 Level 4 Est. Patient 21:24:55 EXTRAS CASTING DIRECTOR Tesfaye pearson MD [facility] CPT-83872 Level 3 Est. Patient 13:45:04 EXTRAS CASTING DIRECTOR Tesfaye pearson MD [facility] CPT-73192 Level 4 Est. Patient 13:50:45 CDT Tesfaye pearson MD [facility] CPT-48066 Level 3 Est. Patient 10:16:10 CDT Tesfaye pearson MD [facility]-47334 Level 3 Est. Patient 16:36:07 EXTRAS CASTING DIRECTOR Kayla jameson MD [facility] CPT-57295 Level 4 Est. Patient 16:00:14 EXTRAS CASTING DIRECTOR Tesfaye pearson MD [facility]-00854 Level 4 Est. Patient 11:02:24 EXTRAS CASTING DIRECTOR Tesfaye pearson MD [facility] CPT-48985 Level 3 Est. Patient 20:21:43 EXTRAS CASTING DIRECTOR Kayla jameson MD [facility]-80315 Level 3 Est. Patient 13:27:28 EXTRAS CASTING DIRECTOR Kayla jameson MD [facility] CPT-84053 Level 4 Est. Patient 15:57:17 EXTRAS CASTING DIRECTOR Tesfaye pearson MD [facility] CPT-55658 Level 3 New Patient 13:25:47 CDT Tesfaye kidd MD [facility] CPT-63260 Level 3 New Patient 17:22:21 CDT Kayla angel MD [facility] Procedures Code Procedure Name Date Entry Date Standard Desc ription CPT-19109 Bone Density - XRAY USE ONLY 15:21:33 CDT 2 CPT-11320 Venipuncture Draw Fee 16:12:22 CDT CPT-G0439 [facility] Subsequent Annual Wellness Exam 18:06:36 CDT CPT-G0439 Subsequent Annual Wellness Exam 22:18:11 CDT CPT-99515 Bone Density - XRAY USE ONLY 11:43:58 CDT 2 CPT-29311 Bone Density - XRAY USE ONLY 10:05:16 CDT CPT-82244 Prv Med New Pt 40-64 yrs 18:19:25 CDT 2016 CPT-23122 Foot, right, comp min 3V - XRAY USE ONLY 10:38:34 CDT CPT-G0439 Subsequent Annual Wellness Exam 13:55:04 CDT CPT-G0438 Initial Annual Wellness Exam 11:23:17 CD T CPT-J2930 Solu Medrol 125 mg (Methyl Prednisolone Sodium Succinate) 17:29:12 EXTRAS CASTING DIRECTOR CPT-06842 Abx/Therapy Injection 17:29:11 EXTRAS CASTING DIRECTOR CPT-J2930 Solu Medrol 125 mg (Methyl Prednisolone Sodium Succinate) 12:34:38 EXTRAS CASTING DIRECTOR CPT-J3420 Vitamin B12 1000mcg (Cyanocobalamin) 09:12:55 CDT CPT-J3420 Vitamin B12 1000mcg (Cyanocobalamin) 16:28:06 EXTRAS CASTING DIRECTOR CPT-29804 Venipuncture Draw Fee 08:39:53 CDT CPT-J3420 Vitamin B12 1000mcg (Cyanocobalamin) 08:46:22 CDT CPT-75421 Abx/Therapy Injection 08:46:22 CDT CPT-J3420 Vitamin B12 1000mcg (Cyanocobalamin) 08:41:26 CDT CPT-14407 Abx/Therapy Injection 08:41:26 CDT CPT-J3420 Vitamin B12 1000mcg (Cyanocobalamin) 08:57:15 CDT CPT-88082 Abx/Therapy Injection 08:57:15 CDT CPT-J3420 Vitamin B12 1000mcg (Cyanocobalamin) 10:59:03 CDT CPT-41275 Abx/Therapy Injection 10:59:03 CDT CPT-J3420 Vitamin B12 1000mcg (Cyanocobalamin) 15:05:39 CDT CPT-69606 Abx/Therapy Injection 15:05:39 CDT CPT-J3420 Vitamin B12 1000mcg (Cyanocobalamin) 13:50:45 CDT CPT-J3420 Vitamin B12 1000mcg (Cyanocobalamin) 08:48:55 CDT CPT-99920 Abx/Therapy Injection 08:48:55 CDT CPT-J3420 Vitamin B12 1000mcg (Cyanocobalamin) 09:14:54 CDT CPT-25819 Abx/Therapy Injection 09:14:54 CDT CPT-J3420 Vitamin B12 1000mcg (Cyanocobalamin) 09:06:06 CDT CPT-20119 Abx/Therapy Injection 09:06:06 CDT CPT-J3420 Vitamin B12 1000mcg (Cyanocobalamin) 09:49:14 CDT CPT-54656 Abx/Therapy Injection 09:49:14 CDT CPT-J3420 Vitamin B12 1000mcg (Cyanocobalamin) 09:10:30 EXTRAS CASTING DIRECTOR CPT-99351 Abx/Therapy Injection 09:10:30 EXTRAS CASTING DIRECTOR CPT-J3420 Vitamin B12 1000mcg (Cyanocobalamin) 09:11:07 EXTRAS CASTING DIRECTOR CPT-55513 Abx/Therapy Injection 09:11:07 EXTRAS CASTING DIRECTOR CPT-J3420 Vitamin B12 1000mcg (Cyanocobalamin) 09:57:03 EXTRAS CASTING DIRECTOR CPT-12743 Abx/Therapy Injection 09:57:03 EXTRAS CASTING DIRECTOR CPT-J3420 Vitamin B12 1000mcg (Cyanocobalamin) 09:23:21 EXTRAS CASTING DIRECTOR CPT-54859 Abx/Therapy Injection 09:23:21 EXTRAS CASTING DIRECTOR CPT-11090 Urine Dip (Floor Use Only) 20:21:44 EXTRAS CASTING DIRECTOR 201 02/12/11 CPT-87433 UA Dip Auto (Floor Use Only) 10:04:39 EXTRAS CASTING DIRECTOR 2 CPT-44858 Urine Dip (Floor Use Only) 13:27:28 EXTRAS CASTING DIRECTOR 201 02/12/01 CPT-48940 Bladder Scan 13:27:28 EXTRAS CASTING DIRECTOR CPT-30303 Abd single AP View 14:30:51 EXTRAS CASTING DIRECTOR CPT-OV Office Visit 10:15:43 CDT CPT-88079 Urine Dip (Floor Use Only) 17:22:21 CDT 201 02/09/02 CPT-63953 Bladder Scan 17:22:21 CDT
--- OUTSIDE RECORDS SUMMARY | 2020-05-05 11:10 | XMS REPORT | Clinical Summary ---
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 2018 PRAMIPEXOLE DIHYDROCHLORIDE 51012206707 Active Laurence Raida Active MIRAPEX 0.25 MG ORAL TABLET 1 tablet by mouth at night for r estless leg PRAMIPEXOLE DIHYDROCHLORIDE 72726597176 No Longer Act trent Laurence Raida Active HYDROXYZINE HCL 25 MG ORAL TABLET 1 tab po at HS prn sleep HYDROXYZINE HCL 80051550824 Active Laurence Raida Active DIFLUCAN 100 MG ORAL TABLET 1 tablet by mouth daily FLUCONAZOLE 89766296331 Active Laurence Raida Active MIRAPEX 0.125 MG ORAL TABLET 1 po nightly PRAMIPEXOLE DIHYDROCHLORIDE 12931530734 No Longer Active Laurence Raida Active ROPINIROLE HCL 2 MG ORAL TABLET 1 po at hs ROPI NIROLE HCL 72858044375 No Longer Active Laurence Raida Active ROPINIROLE HCL 1 MG ORAL TABLET 1 tab po q hs ROPINIROLE HCL 70688962740 No Longer Active Laurence Raida Active ROPINIROLE HCL 0.5 MG ORAL TABLET 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 ROPINIROLE HCL 58469868867 No Longer Active MARCUS Panchal Active ROPINIROLE HCL 0.25 MG ORAL TABLET 1 TAB PO Q HS 05/31 ROPINIROLE HCL 63882538641 No Longer Active Tesfaye Sherman MD Ac tive PREDNISONE 20 MG ORAL TABLET 1 tab twice daily for 3 d ay, then one daily for three days PREDNISONE 38507783535 No Longer Active Tesfaye Sherman MD Active AMITRIPTYLINE HCL 50 MG ORAL TABLET 1 po q hs for sleep AMITRIPTYLINE HCL 03949640486 No Longer Active Tesfaye Sherman MD Active AMITRIPTYLINE HCL 10 MG ORAL TABLET 1 tablet nightly by mout h for neuropathy AMITRIPTYLINE HCL 34248012320 No Longer Active MARCUS Stapleton Active DIFLUCAN 100 MG ORAL TABLET 1 tablet by mouth daily 20 21/03/11 FLUCONAZOLE 20909215216 No Longer Active Tesfaye Sherman MD Acti ve BACTRIM DS 800-160 MG ORAL TABLET 1 tab by mouth twice daily 201 07/08/06 TRIMETHOPRIM-SULFAMETHOXAZOLE 47422283523 No Longer Active Umer Sherman MD Active CLARITIN 10 MG ORAL TABLET Take one by mouth daily LORATADINE 37628253950 Active Tesfaye Sherman MD Active SUDAFED 12 HOUR 120 MG ORAL TABLET EXTENDED RELEASE 12 HOUR 1 pill twice daily if needed for congestion PSEUDOEPHEDRINE HCL 972117841 13 No Longer Active Tesfaye Sherman MD Active FENOFIBRATE 145 MG ORAL TABLET 1 by mouth daily FENOFIBRATE 30010301980 Active Laurence Dominguez Active GABAPENTIN 300 MG ORAL CAPSULE 1 po daily GABAP ENTIN 27462355484 No Longer Active Tesfaye Sherman MD Active HYDROCHLOROTHIAZIDE 12.5 MG ORAL CAPSULE 1 pill by mough daily 2 HYDROCHLOROTHIAZIDE 24913496559 No Longer Active León Mariee APRN Active VENLAFAXINE HCL 75 MG ORAL TABLET 1 am 1/2 at noon 201 07/07/09 VENLAFAXINE HCL 78588763947 No Longer Active León Mariee APRN Act trent DIFLUCAN 100 MG ORAL TABLET 1 tablet by mouth daily 20 19/02/09 FLUCONAZOLE 85063134232 No Longer Active León Mariee APRN Active DIFLUCAN 100 MG ORAL TABLET 1 tablet by mouth daily 20 19/02/09 FLUCONAZOLE 75303645453 No Longer Active León Mariee APRN Active OXYCODONE-ACETAMINOPHEN 5-325 MG ORAL TABLET Take one tablet by mouth every 6 hours 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 Use sparingly OXYCODONE-ACETAMINOPHEN 75954635141 Active Tesfaye villar MD Active CLONAZEPAM 0.5 MG ORAL TABLET Take 1/2 qam, and 1/2 qpm CLONAZEPAM 16488530693 Active Tesfaye Sherman MD Active PRELIEF 340 (65-50) MG (CA-P) ORAL TABLET CALCIUM GLYCEROPHOSPHATE 57006886464 No Longer Active Tesfaye Sherman MD Active SUDAFED 24 HOUR 240 MG ORAL TABLET EXTENDED RELEASE 24 HOUR 1 tab po daily PSEUDOEPHEDRINE HCL 05964083520 No Longer Active Raul Sherman MD Active RED YEAST RICE 600 MG ORAL CAPSULE 1 pill by mouth daily RED YEAST RICE EXTRACT 63431280160 No Longer Active Tesfaye Sherman MD Active REPHRESH PRO-B ORAL CAPSULE 1 tablet daily LACT OBACILLUS 78518107180 No Longer Active Tesfaye Sherman MD Active ABILIFY 2 MG ORAL TABLET 1 by mouth daily. MARIA ELENA PIPRAZOLE 14042094450 Active Tesfaye Sherman MD Active CYMBALTA 60 MG ORAL CAPSULE DELAYED RELEASE PARTICLES 1 cap by mouth daily for pain DULOXETINE HCL 87993736593 Active MARCUS Lindsay Active DIFLUCAN 100 MG ORAL TABLET 1 tablet by mouth daily 20 20/06/06 FLUCONAZOLE 64499487787 No Longer Active Tesfaye Sherman MD Acti ve PREDNISONE 20 MG ORAL TABLET 1 tablet by mouth twice d aily for 3 days, then 1 tablet daily for 3 days PREDNISONE 67782283515 No L onger Active Tesfaye Sherman MD Active BACTRIM DS 800-160 MG ORAL TABLET 1 tab by mouth twice daily 201 06/09/02 TRIMETHOPRIM-SULFAMETHOXAZOLE 24568687557 No Longer Active A mirna Dominguez Active DIFLUCAN 100 MG ORAL TABLET 1 tablet by mouth daily 20 20/05/01 FLUCONAZOLE 80723252212 No Longer Active Tesfaye Sherman MD Acti ve ZITHROMAX 250 MG ORAL TABLET 2 po today, then 1 po q days 2-5 20 20/04/28 AZITHROMYCIN 34001839178 No Longer Active Tesfaye Sherman MD Active MECLIZINE HCL 25 MG ORAL TABLET one tab po qday prn dizziness 20 17/09/06 MECLIZINE HCL 41812777562 No Longer Active Tesfaye Sherman MD Active PROAIR HFA 108 (90 BASE) MCG/ACT INHALATION AEROSOL SO LUTION 1 puff every 6 hours as needed ALBUTEROL SULFATE 69357654315 No Long er Active Tesfaye Sherman MD Active PREDNISONE 20 MG ORAL TABLET 1 tab twice daily for 3 d ay, then one daily for three days PREDNISONE 80087878099 No Longer Active Tesfaye Sherman MD Active MECLIZINE HCL 25 MG ORAL TABLET one 4 times a day as needed for dizziness MECLIZINE HCL 82998798825 Active Tesfaye Sherman MD Active AMOXICILLIN 500 MG ORAL CAPSULE 1 cap by mouth three times a day AMOXICILLIN 62301624502 No Longer Active Laurence Dominguez Acti ve DIFLUCAN 100 MG ORAL TABLET 1 tablet by mouth daily 20 19/08/26 FLUCONAZOLE 10652232518 No Longer Active Tesfaye Sherman MD Acti ve BACTRIM DS 800-160 MG ORAL TABLET 1 tab by mouth twice daily 201 05/10/28 TRIMETHOPRIM-SULFAMETHOXAZOLE 03734014074 No Longer Active A mirna Raduyen Active FOSAMAX 70 MG ORAL TABLET 1 po qweek. Take 30min prio r to first food/drink. Avoid lying down x 1 hour. ALENDRONATE SODIUM 66111314 144 No Longer Active Laurence Raida Active CYMBALTA 60 MG ORAL CAPSULE DELAYED RELEASE PARTICLES Take 1 tablet by mouth daily DULOXETINE HCL 94627676152 No Longer Active Edith Burch MD Active CYMBALTA 30 MG ORAL CAPSULE DELAYED RELEASE PARTICLES 1 cap by mouth daily with 60mg DULOXETINE HCL 40134517019 No Longer Active Jordan Burch MD Active FISH OIL 1000 MG ORAL CAPSULE DELAYED RELEASE 1 pill b y mouth daily for cholesterol OMEGA-3 FATTY ACIDS 54674457136 Active Cee Jaffe LPN Active DIFLUCAN 100 MG ORAL TABLET 1 tablet by mouth daily 19/03/05 FLUCONAZOLE 56461052063 No Longer Active Tesfaye Sherman MD Acti ve BACTRIM DS 800-160 MG ORAL TABLET 1 tab by mouth twice daily 201 05/06/28 TRIMETHOPRIM-SULFAMETHOXAZOLE 86553423628 No Longer Active Umer Sherman MD Active BACTRIM DS 800-160 MG ORAL TABLET 1 tab by mouth twice daily 201 05/04/15 TRIMETHOPRIM-SULFAMETHOXAZOLE 20034199206 No Longer Active Umer Sherman MD Active DIFLUCAN 150 MG ORAL TABLET 1 tablet by mouth daily 20 18/09/20 FLUCONAZOLE 63089198799 No Longer Active Tesfaye Sherman MD Acti ve BACTRIM DS 800-160 MG ORAL TABLET 1 tab by mouth twice daily 201 04/13/17 TRIMETHOPRIM-SULFAMETHOXAZOLE 96552660579 No Longer Active Umer Sherman MD Active CEFTIN 250 MG ORAL TABLET 1 tablet twice daily x 7 days CEFUROXIME AXETIL 39054834592 No Longer Active Tesfaye Sherman MD Active DIFLUCAN 100 MG ORAL TABLET 1 tablet by mouth every other da y for 2 doses FLUCONAZOLE 79715457005 No Longer Active Tesfaye barron MD Active DIFLUCAN 100 MG ORAL TABLET 1 tablet by mouth daily X 3 DAYS 201 04/09/01 FLUCONAZOLE 01006230877 No Longer Active Rj Cardosove MIRTAZAPINE 15 MG ORAL TABLET 1/2 tab by mouth at bedtime. 03/13 MIRTAZAPINE 69263331058 No Longer Active Tesfaye Sherman MD Active BACTRIM DS 800-160 MG ORAL TABLET 1 tab by mouth twice daily 201 04/09/01 TRIMETHOPRIM-SULFAMETHOXAZOLE 66039412805 No Longer Active D patricia Sherman MD Active PRAMIPEXOLE DIHYDROCHLORIDE 0.125 MG ORAL TABLET take 1 tablet po qhs for restless leg syndrome. PRAMIPEXOLE DIHYDROCHLORI DE 53217599022 No Longer Active Tesfaye Sherman MD Active MAGNESIUM 400 MG ORAL TABLET 1 tab po daily MAGNE SIUM 93066221394 Active Chelsea Cardenas APRN Active CETIRIZINE HCL 5 MG ORAL TABLET Take 1 tablet by mouth daily CETIRIZINE HCL 05093384942 No Longer Active Chelsea Cardenas APRN Activ e TRIMETHOPRIM 100 MG ORAL TABLET 1/2 qd TRIM ETHOPRIM 58428692783 No Longer Active Chelsea Cardenas APRN Active BACTRIM DS 800-160 MG ORAL TABLET 1 tab by mouth twice daily 201 04/04/11 TRIMETHOPRIM-SULFAMETHOXAZOLE 48619746524 No Longer Active Umer Sherman MD Active BACTRIM DS 800-160 MG ORAL TABLET 1 tab by mouth twice daily X 10 DAYS TRIMETHOPRIM-SULFAMETHOXAZOLE 79908236026 No Longer Active Tesfaye Sherman MD Active AMOXICILLIN 500 MG ORAL CAPSULE 1 cap by mouth three times a day AMOXICILLIN 67165942799 No Longer Active MARCUS Maravilla A ctive B-12 1000 MCG ORAL LOZENGE 1 tab po daily CYANO COBALAMIN 62395598768 Active Tesfaye Sherman MD Active VITAMIN D3 2000 UNIT ORAL TABLET 1 daily, for vitamin D deficien cy CHOLECALCIFEROL 81887945577 No Longer Active Tesfaye Sherman MD Active TIZANIDINE HCL 2 MG ORAL TABLET take 1-2 tablet by [facility] every day at bedtime at 9pm PRN TIZANIDINE HCL 99043712471 Active Tesfaye hewitt MD Active ZITHROMAX 250 MG ORAL TABLET 2 po today, then 1 po q days 2-5 20 15/02/10 AZITHROMYCIN 78191490980 No Longer Active Tesfaye Sherman MD Active BACTRIM DS 800-160 MG ORAL TABLET 1 tab by mouth twice daily 201 03/03/23 TRIMETHOPRIM-SULFAMETHOXAZOLE 71677357464 No Longer Active D patricia Sherman MD Active [facility] NIACIN FLUSH FREE 400-100 MG ORAL CAPSULE 1 daily NIACIN-INOSITOL 99554477294 Active Kayla Cooper MD Activ e DIFLUCAN 150 MG ORAL TABLET 1 qd FLUCONAZOL E 77234053633 No Longer Active Kayla Cooper MD Active FLUTICASONE PROPIONATE 50 MCG/ACT NASAL SUSPENSION 1 spray each nostril twice daily FLUTICASONE PROPIONATE 86945935876 Active Umer Sherman MD Active LOVASTATIN 20 MG ORAL TABLET Take 1 tablet by mouth daily LOVASTATIN 41118238628 No Longer Active Tesfaye Sherman MD Acti ve MELOXICAM 7.5 MG ORAL TABLET 1 tablet by mouth daily 2 MELOXICAM 81401497676 No Longer Active Tesfaye Sherman MD Acti ve GABAPENTIN 300 MG ORAL CAPSULE Take two tablets by mouth every e vening GABAPENTIN 80652565877 No Longer Active Edith Burch MD A ctive BACLOFEN 10 MG ORAL TABLET Take one tablet by mouth three times a d ay BACLOFEN 91662067206 Active Kayla Cooper MD Active GABAPENTIN 300 MG ORAL CAPSULE Take two tablets by mouth every e vening GABAPENTIN 300 MG ORAL CAPSULE 512958 GABAPENTIN I nactive MELOXICAM 7.5 MG ORAL TABLET 1 tablet by mouth daily 2 MELOXICAM 7.5 MG ORAL TABLET 146684 MELOXICAM Inactive LOVASTATIN 20 MG ORAL TABLET Take 1 tablet by mouth daily LOVASTATIN 20 MG ORAL TABLET 641804 LOVASTATIN Inactive DIFLUCAN 150 MG ORAL TABLET 1 qd DIFLUCAN 150 MG ORAL TABLET 773315 FLUCONAZOLE Inactive VITAMIN D3 2000 UNIT ORAL TABLET 1 daily, for vitamin D deficien cy VITAMIN D3 2000 UNIT ORAL TABLET CHOLECALCIFEROL Inactive AMOXICILLIN 500 MG ORAL CAPSULE 1 cap by mouth three times a day AMOXICILLIN 500 MG ORAL CAPSULE 057664 AMOXICILLIN Inactive BACTRIM DS 800-160 MG ORAL TABLET 1 tab by mouth twice daily X 10 DAYS BACTRIM DS 800-160 MG ORAL TABLET 339226 TRIMETHOPRIM-SULFAMETHOXAZOLE Inactive TRIMETHOPRIM 100 MG ORAL TABLET 1/2 qd 7 TRIMETHOPRIM 100 MG ORAL TABLET 651352 TRIMETHOPRIM Inactive CETIRIZINE HCL 5 MG ORAL TABLET Take 1 tablet by mouth daily CETIRIZINE HCL 5 MG ORAL TABLET 2277505 CETIRIZINE HCL Inactive PRAMIPEXOLE DIHYDROCHLORIDE 0.125 MG ORAL TABLET take 1 tablet po qhs for restless leg syndrome. PRAMIPEXOLE DIHYD ROCHLORIDE 0.125 MG ORAL TABLET 395489 PRAMIPEXOLE DIHYDROCHLORIDE Inactive MIRTAZAPINE 15 MG ORAL TABLET 1/2 tab by mouth at bedtime. 03/13 MIRTAZAPINE 15 MG ORAL TABLET 056998 MIRTAZAPINE In active DIFLUCAN 100 MG ORAL TABLET 1 tablet by mouth daily X 3 DAYS 201 04/09/01 DIFLUCAN 100 MG ORAL TABLET 897653 FLUCONAZOLE Inac tive DIFLUCAN 100 MG ORAL TABLET 1 tablet by mouth every other da y for 2 doses DIFLUCAN 100 MG ORAL TABLET 422222 FLUCONAZOLE Inactive CEFTIN 250 MG ORAL TABLET 1 tablet twice daily x 7 days CEFTIN 250 MG ORAL TABLET CEFUROXIME AXETIL Inactive CYMBALTA 30 MG ORAL CAPSULE DELAYED RELEASE PARTICLES 1 cap by mouth daily with 60mg CYMBALTA 30 MG ORAL CAPSULE DELAYED RELEASE PARTICLES 790569 DULOXETINE HCL Inactive CYMBALTA 60 MG ORAL CAPSULE DELAYED RELEASE PARTICLES Take 1 tablet by mouth daily CYMBALTA 60 MG ORAL CAPSULE DELAYED RELEA SE PARTICLES 615187 DULOXETINE HCL Inactive FOSAMAX 70 MG ORAL TABLET 1 po qweek. Take 30min prio r to first food/drink. Avoid lying down x 1 hour. FOSAMAX 70 MG ORAL TA BLET 522226 ALENDRONATE SODIUM Inactive DIFLUCAN 100 MG ORAL TABLET 1 tablet by mouth daily 19/08/26 DIFLUCAN 100 MG ORAL TABLET 19760711 FLUCONAZOLE Inactive PREDNISONE 20 MG ORAL TABLET 1 tab twice daily for 3 d ay, then one daily for three days PREDNISONE 20 MG ORAL TABLET 827681 PREDNIS ONE Inactive PROAIR HFA 108 (90 BASE) MCG/ACT INHALATION AEROSOL SO LUTION 1 puff every 6 hours as needed PROAIR HFA 108 (90 B ASE) MCG/ACT INHALATION AEROSOL SOLUTION ALBUTEROL SULFATE Inactive MECLIZINE HCL 25 MG ORAL TABLET one tab po qday prn dizziness 20 17/09/06 MECLIZINE HCL 25 MG ORAL TABLET 095534 MECLIZINE HCL Inactive PREDNISONE 20 MG ORAL TABLET 1 tablet by mouth twice d aily for 3 days, then 1 tablet daily for 3 days PREDNISONE 20 MG ORAL TA BLET 658337 PREDNISONE Inactive DIFLUCAN 100 MG ORAL TABLET 1 tablet by mouth daily 20/06/06 DIFLUCAN 100 MG ORAL TABLET 767820 FLUCONAZOLE Inactive REPHRESH PRO-B ORAL CAPSULE 1 tablet daily REPHRESH PRO-B ORAL CAPSULE LACTOBACILLUS Inactive RED YEAST RICE 600 MG ORAL CAPSULE 1 pill by mouth daily RED YEAST RICE 600 MG ORAL CAPSULE 670544 RED YEAST RICE EXTRACT In active SUDAFED [...] 20 19/02/09 DIFLUCAN 100 MG ORAL TABLET 477912 FLUCONAZOLE Inactive VENLAFAXINE HCL 75 MG ORAL TABLET 1 am 1/2 at noon 201 07/07/09 VENLAFAXINE HCL 75 MG ORAL TABLET 681824 VENLAFAXINE HCL Inacti ve GABAPENTIN 300 MG ORAL CAPSULE 1 po daily GABAPENTIN 300 MG ORAL CAPSULE 675040 GABAPENTIN Inactive SUDAFED 12 HOUR 120 MG ORAL TABLET EXTENDED RELEASE 12 HOUR 1 pill twice daily if needed for congestion SUDAFED 12 HOUR 120 MG ORAL TABLET EXTENDED RELEASE 12 HOUR PSEUDOEPHEDRINE HCL Inactive AMITRIPTYLINE HCL 10 MG ORAL TABLET 1 tablet nightly by mout h for neuropathy AMITRIPTYLINE HCL 10 MG ORAL TABLET 463203 AMITRIPTYLINE HCL Inactive AMITRIPTYLINE HCL 50 MG ORAL TABLET 1 po q hs for sleep AMITRIPTYLINE HCL 50 MG ORAL TABLET 465412 AMITRIPTYLINE HCL Inac tive PREDNISONE 20 MG ORAL TABLET 1 tab twice daily for 3 d ay, then one daily for three days PREDNISONE 20 MG ORAL TABLET 692076 PREDNIS ONE Inactive ROPINIROLE HCL 0.25 MG ORAL TABLET 1 TAB PO Q HS 05/31 ROPINIROLE HCL 0.25 MG ORAL TABLET 634037 ROPINIROLE HCL Inact trent ROPINIROLE HCL 0.5 MG ORAL TABLET 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 ROPINIROLE HCL 0.5 MG ORAL TABLET 716770 ROPINIR OLE HCL Inactive ROPINIROLE HCL 1 MG ORAL TABLET 1 tab po q hs ROPINIROLE HCL 1 MG ORAL TABLET 649421 ROPINIROLE HCL Inactive ROPINIROLE HCL 2 MG ORAL TABLET 1 po at hs 7 ROPINIROLE HCL 2 MG ORAL TABLET 549366 ROPINIROLE HCL Inactive MIRAPEX 0.125 MG ORAL TABLET 1 po nightly MIRAPEX 0.125 MG ORAL TABLET 624600 PRAMIPEXOLE DIHYDROCHLORIDE Inactive MIRAPEX 0.25 MG ORAL TABLET 1 tablet by mouth at night for r estless leg MIRAPEX 0.25 MG ORAL TABLET 765983 PRAM IPEXOLE DIHYDROCHLORIDE Inactive BACTRIM DS 800-160 MG ORAL TABLET 1 tab by mouth twice daily 201 03/03/23 BACTRIM DS 800-160 MG ORAL TABLET 19830105 TRIMETHOPRIM-SULFAMETHOXAZOLE Inactive ZITHROMAX 250 MG ORAL TABLET 2 po today, then 1 po q days 2-5 20 15/02/10 ZITHROMAX 250 MG ORAL TABLET 514352 AZITHROMYCIN [place] ctive BACTRIM DS 800-160 MG ORAL TABLET [...] a day AMOXICILLIN 500 MG ORAL CAPSULE 235229 AMOXICILLIN Inactive ZITHROMAX 250 MG ORAL TABLET 2 po today, then 1 po q days 2-5 20 20/04/28 ZITHROMAX 250 MG ORAL TABLET 705547 AZITHROMYCIN [place] ctive DIFLUCAN 100 MG ORAL TABLET 1 tablet by mouth daily 20 20/05/01 DIFLUCAN 100 MG ORAL TABLET 122003 FLUCONAZOLE Inactive BACTRIM DS 800-160 MG ORAL TABLET 1 tab by mouth twice daily 201 06/09/02 BACTRIM DS 800-160 MG ORAL TABLET 655355 TRIMETHOPRIM-SULFAMETHOXAZOLE Inactive HYDROCHLOROTHIAZIDE 12.5 MG ORAL CAPSULE 1 pill by mough daily 2 HYDROCHLOROTHIAZIDE 12.5 MG ORAL CAPSULE HYDROCH LOROTHIAZIDE Inactive BACTRIM DS 800-160 MG ORAL TABLET 1 tab by mouth twice daily 201 07/08/06 BACTRIM DS 800-160 MG ORAL TABLET 763753 TRIMETHOPRIM-SULFAMETHOXAZOLE Inactive DIFLUCAN 100 MG ORAL TABLET 1 tablet by mouth daily 20 21/03/11 DIFLUCAN 100 MG ORAL TABLET 238538 FLUCONAZOLE Inactive Advance Directives Directive Description Start Date PERMISSION TO SHARE DISCUSSED WITH PATIENT -- NO DECISION MADE DISCUSED WITH PATIENT -- FULL CODE LIVING WILL ON FILE 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 Metabolic Panel, Magnesium - Chemistry cholesterol, serum 196 mg/dL 272-369 8330/07/30 potassium, serum 4.6 mmol/L 3.5-5.2 chloride, serum [...] 8.5-10.1 bilirubin, serum, total 0.70 mg/dL 0.00-1.00 triglyceride, serum, fasting 86 mg/dL 30-200 HDL cholesterol, serum 41 mg/dL 32-60 LDL cholesterol, serum 138 mg/dL 0-130 sodium, serum 140 mmol/L 767-410 3421/07/30 carbon dioxide, venous blood 28.6 mmol/L 21.0-32 .0 Lab Report: Lipid Panel, Comp. Metabolic Panel, Magnesium - Lab Alkaline phosphatase 81 50-136 Lab Report: UADIP W/MICRO, AUTO, Comp. M etabolic Panel, CBC - Chemistry RBC, urine, dipstick Trace-lysed Negative protein, total urine random Negative mg/dL Negative sodium, serum 139 mmol/L 859-842 0373/11/07 carbon dioxide, venous blood 28.4 mmol/L 21.0-32 .0 potassium, serum 3.9 mmol/L 3.5-5.2 chloride, serum 101 mmol/L 98-107 blood glucose 99 mg/dL 65-95 urea nitrogen, blood 13 mg/dL 7-18 creatinine, serum 0.65 mg/dL 0.60-1.30 Estimated Glomerular Filtration Rate (calc) 100 (?) mL/min/1.73m2 = OR > 60 mL/min alanine aminotransferase (SGPT), serum 21 U/L 12-78 aspartate aminotransferase (SGOT), serum 16 U/L 15-37 calcium, serum 9.1 mg/dL 8.5-10.1 bilirubin, serum, total 0.50 mg/dL 0.00-1.00 Lab Report: UADIP W/MICRO, AUTO, Comp. M etabolic Panel, CBC - Hematology leukocyte count, blood 11.8 10^3/MM^3 10*3/mm3 4.6-10.2 erythrocyte (RBC) count 4.84 10^6/MM^3 10*6/mm3 3.80-5.8 0 hemoglobin, blood 14.9 g/dL 12.0-16.0 hematocrit, blood 46.2 % 37.0-47.0 mean corpuscular volume, RBC 95 fL 80-97 mean corpuscular hemoglobin, RBC 30.9 pg 27. 0-31.2 mean corpuscular hemoglobin concentration, RBC 32.3 G/DL % 31.8-35.4 red blood cell distribution width 11.1 % 11 .6-14.8 platelet count 400 10^3/MM^3 10*3/mm3 142-424 Lab Report: UADIP W/MICRO, AUTO, Comp. M etabolic Panel, CBC - Lab Alkaline phosphatase 100 50-136 Lab Report: UADIP W/MICRO, AUTO, Comp. M etabolic Panel, CBC - Urinalysis pH, urine, semiquantitative 5.5 5.0-8.5 specific gravity, urine 1.015 1.000-1.030 appearance, urine Clear Clear urine color Yellow Colorless;Lightyellow;St raw;Yellow urobilinogen, urine, semiquantitative (dipstick) 0.2 E .U./dL Normal leukocyte esterase, urine, by dipstick Negative Negative nitrite, urine, semiquantitative Negative Neg ative glucose, urine, semiquantitative Negative Neg ative ketones, urine, by test strip Negative Negati ve bilirubin, urine Negative Negative Encounters Code Encounter Date Provider Facility CPT-50694 [id number] Vst-Est Level IV 14:08:03 C BRIDGET Sherman MD [facility]-[id number] Level 3 Est. Patient 18:06:36 CDT Tesfaye pearson MD [facility]-07873 [id number] Vst-Est Level IV 17:09:34 C BRIDGET Sherman MD [facility]-[id number] Level 3 Est. Patient 17:27:08 CDT León Bandar hernandez APRN [facility]-36309 [id number] Vst-Est Level IV 14:00:[address] Tesfaye Sherman MD [facility]-[id number] Vst-Est Level IV 19:27:[address] Tesfaye Sherman MD [facility]-67176 [id number] Vst-Est Level IV 10:41:41 C BRIDGET Sherman MD [facility]-31650 [id number] Vst-Est Level III 09:40:56 CDT Tesfaye Sherman MD [facility]-91030 Level 4 Est. Patient 22:18:12 CDT Tesfaye pearson MD [facility]-90576 Level 4 Est. Patient 14:44:33 AREA DEVELOPMENT CONSULTANT Tesfaye pearson MD [facility] CPT-66037 Level 4 Est. Patient 13:55:29 AREA DEVELOPMENT CONSULTANT Tesfaye pearson MD [facility] CPT-34979 Level 4 Est. Patient 17:07:34 AREA DEVELOPMENT CONSULTANT Tesfaye pearson MD [facility] CPT-24345 Level 4 Est. Patient 13:56:54 CDT Tesfaye pearson MD [facility]-02292 Level 4 Est. Patient 13:24:25 CDT Chelsea sanz APRN [facility] CPT-28362 Level 4 Est. Patient 09:14:56 CDT Tesfaye pearson MD [facility]-38498 Level 4 Est. Patient 18:40:25 AREA DEVELOPMENT CONSULTANT Tesfaye pearson MD [facility]-96883 Level 4 Est. Patient 18:13:07 AREA DEVELOPMENT CONSULTANT Tesfaye pearson MD [facility]-[id number] Level 3 Est. Patient 10:46:32 CDT Rj cotto DO [facility] CPT-38775 Level 4 Est. Patient 20:19:25 CDT Tesfaye pearson MD [facility]-52460 Level 3 Est. Patient 09:07:31 CDT Tesfaye pearson MD [facility]-63745 Level 4 Est. Patient 13:12:56 CDT Tesfaye pearson MD [facility]-10768 Level 4 Est. Patient 21:24:55 AREA DEVELOPMENT CONSULTANT Tesfaye pearson MD [facility] CPT-39616 Level 3 Est. Patient 13:45:04 AREA DEVELOPMENT CONSULTANT Tesfaye pearson MD [facility] CPT-49781 Level 4 Est. Patient 13:50:45 CDT Tesfaye pearson MD [facility] CPT-38778 Level 3 Est. Patient 10:16:10 CDT Tesfaye pearson MD [facility] CPT-81725 Level 3 Est. Patient 16:36:07 AREA DEVELOPMENT CONSULTANT Kayla jameson MD [facility] CPT-56367 Level 4 Est. Patient 16:00:14 AREA DEVELOPMENT CONSULTANT Tesfaye pearson MD [facility] CPT-96204 Level 4 Est. Patient 11:02:24 AREA DEVELOPMENT CONSULTANT Tesfaye pearson MD [facility] CPT-17288 Level 3 Est. Patient 20:21:43 AREA DEVELOPMENT CONSULTANT Kayla jameson MD [facility] CPT-45745 Level 3 Est. Patient 13:27:28 AREA DEVELOPMENT CONSULTANT Kayla jameson MD [facility] CPT-59657 Level 4 Est. Patient 15:57:17 AREA DEVELOPMENT CONSULTANT Tesfaye pearson MD [facility] CPT-45624 Level 3 New Patient 13:25:47 CDT Tesfaye kidd MD [facility] CPT-70618 Level 3 New Patient 17:22:21 CDT Kayla angel MD [facility] Procedures Code Procedure Name Date Entry Date Standard Desc ription CPT-04771 Bone Density - XRAY USE ONLY 15:21:33 CDT 2 CPT-35551 Venipuncture Draw Fee 16:12:22 CDT CPT-G0439 Subsequent Annual Wellness Exam 18:06:36 CDT CPT-G0439 Subsequent Annual Wellness Exam 22:18:11 CDT CPT-64707 Bone Density - XRAY USE ONLY 11:43:58 CDT CPT-43532 Bone Density - XRAY USE ONLY 10:05:16 CDT 2 CPT-77328 Prv Med New Pt 40-64 yrs 18:19:25 CDT 2016 CPT-88049 Foot, right, comp min 3V - XRAY USE ONLY 10:38:34 CDT CPT-G0439 Subsequent Annual Wellness Exam 13:55:04 CDT CPT-G0438 Initial Annual Wellness Exam 11:23:17 CD T CPT-J2930 Solu Medrol 125 mg (Methyl Prednisolone Sodium Succinate) 17:29:12 [employer]OPMENT [employer]ULT[employer] CPT-75389 Abx/Therapy Injection 17:29:11 AREA DEVELOPMENT CONSULTANT CPT-J2930 Solu Medrol 125 mg (Methyl Prednisolone Sodium Succinate) 12:34:38 AREA DEVELOPMENT CONSULTANT CPT-J3420 Vitamin B12 1000mcg (Cyanocobalamin) 09:12:55 CDT CPT-J3420 Vitamin B12 1000mcg (Cyanocobalamin) 16:28:06 AREA DEVELOPMENT CONSULTANT CPT-27126 Venipuncture Draw Fee 08:39:53 CDT CPT-J3420 Vitamin B12 1000mcg (Cyanocobalamin) 08:46:22 CDT CPT-54182 Abx/Therapy Injection 08:46:22 CDT CPT-J3420 Vitamin B12 1000mcg (Cyanocobalamin) 08:41:26 CDT CPT-72724 Abx/Therapy Injection 08:41:26 CDT CPT-J3420 Vitamin B12 1000mcg (Cyanocobalamin) 08:57:15 CDT CPT-93803 Abx/Therapy Injection 08:57:15 CDT CPT-J3420 Vitamin B12 1000mcg (Cyanocobalamin) 10:59:03 CDT CPT-98641 Abx/Therapy Injection 10:59:03 CDT CPT-J3420 Vitamin B12 1000mcg (Cyanocobalamin) 15:05:39 CDT CPT-32635 Abx/Therapy Injection 15:05:39 CDT CPT-J3420 Vitamin B12 1000mcg (Cyanocobalamin) 13:50:45 CDT CPT-J3420 Vitamin B12 1000mcg (Cyanocobalamin) 08:48:55 CDT CPT-57072 Abx/Therapy Injection 08:48:55 CDT CPT-J3420 Vitamin B12 1000mcg (Cyanocobalamin) 09:14:54 CDT CPT-70426 Abx/Therapy Injection 09:14:54 CDT CPT-J3420 Vitamin B12 1000mcg (Cyanocobalamin) 09:06:06 CDT CPT-71314 Abx/Therapy Injection 09:06:06 CDT CPT-J3420 Vitamin B12 1000mcg (Cyanocobalamin) 09:49:14 CDT CPT-80934 Abx/Therapy Injection 09:49:14 CDT CPT-J3420 Vitamin B12 1000mcg (Cyanocobalamin) 09:10:30 AREA DEVELOPMENT CONSULTANT CPT-51539 Abx/Therapy Injection 09:10:30 AREA DEVELOPMENT CONSULTANT CPT-J3420 Vitamin B12 1000mcg (Cyanocobalamin) 09:11:07 AREA DEVELOPMENT CONSULTANT CPT-48325 Abx/Therapy Injection 09:11:07 AREA DEVELOPMENT CONSULTANT CPT-J3420 Vitamin B12 1000mcg (Cyanocobalamin) 09:57:03 AREA DEVELOPMENT CONSULTANT CPT-85315 Abx/Therapy Injection 09:57:03 AREA DEVELOPMENT CONSULTANT CPT-J3420 Vitamin B12 1000mcg (Cyanocobalamin) 09:23:21 AREA DEVELOPMENT CONSULTANT CPT-18439 Abx/Therapy Injection 09:23:21 AREA DEVELOPMENT CONSULTANT CPT-53641 Urine Dip (Floor Use Only) 20:21:44 AREA DEVELOPMENT CONSULTANT 201 02/12/11 CPT-55962 UA Dip Auto (Floor Use Only) 10:04:39 AREA DEVELOPMENT CONSULTANT 2 CPT-58953 Urine Dip (Floor Use Only) 13:27:28 AREA DEVELOPMENT CONSULTANT 201 02/12/01 CPT-16585 Bladder Scan 13:27:28 AREA DEVELOPMENT CONSULTANT CPT-14802 Abd single AP View 14:30:51 AREA DEVELOPMENT CONSULTANT CPT-OV Office Visit 10:15:43 CDT CPT-00304 Urine Dip (Floor Use Only) 17:22:21 CDT 201 02/09/02 CPT-73468 Bladder Scan 17:22:21 CDT
--- OUTSIDE RECORDS SUMMARY | 2020-05-05 11:11 | XMS REPORT | Clinical Summary ---
Author Author Jeri Hanley Organization [employer] Address Unknown Phone Unavailable Allergies, Adverse Reactions, [...] Tesfaye kidd MD XANAX Critical Active Kayla PURDY Critical Active Kayla tate MD NUVIGIIsrael Critical [...] Routine general medical examination at [facility] acility Sinusitis 461.9 Resolved Tesfaye [...] MD Routine general medical examination at a [facility] acility Body Mass Index 21.0-21.9 Adult [...] Tesfaye Sherman MD Dysuria High risk meds jail use V58.6 Active Tesfaye Sherman MD Long-term (current) drug use Yeast infection 112.9 Inactive Tesfaye Sherman MD Candidiasis of unspecified site Upper respiratory infection 465.9 Inactive Tesfaye Sherman MD Acute upper respiratory infections of un specified site Lower extremity edema, bilateral 782.3 Active 201 07/07/09 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 2018 PRAMIPEXOLE DIHYDROCHLORIDE 22716411925 Active Laurence Raida Active MIRAPEX 0.25 MG ORAL TABLET 1 tablet by mouth at night for r estless leg PRAMIPEXOLE DIHYDROCHLORIDE 20160656271 No Longer Act trent Laurence Raida Active HYDROXYZINE HCL 25 MG ORAL TABLET 1 tab po at HS prn sleep HYDROXYZINE HCL 24686899464 Active Laurence Raida Active DIFLUCAN 100 MG ORAL TABLET 1 tablet by mouth daily FLUCONAZOLE 30294500438 Active Laurence Raida Active MIRAPEX 0.125 MG ORAL TABLET 1 po nightly PRAMIPEXOLE DIHYDROCHLORIDE 27397499533 No Longer Active Laurence Raida Active ROPINIROLE HCL 2 MG ORAL TABLET 1 po at hs ROPI NIROLE HCL 82297746206 No Longer Active Laurence Raida Active ROPINIROLE HCL 1 MG ORAL TABLET 1 tab po q hs ROPINIROLE HCL 48471605190 No Longer Active Laurence Raida Active ROPINIROLE HCL 0.5 MG ORAL TABLET 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 ROPINIROLE HCL 20563000901 No Longer Active MARCUS Panchal Active ROPINIROLE HCL 0.25 MG ORAL TABLET 1 TAB PO Q HS 05/31 ROPINIROLE HCL 73877315032 No Longer Active Tesfaye Sherman MD Ac tive PREDNISONE 20 MG ORAL TABLET 1 tab twice daily for 3 d ay, then one daily for three days PREDNISONE 10607210731 No Longer Active Tesfaye Sherman MD Active AMITRIPTYLINE HCL 50 MG ORAL TABLET 1 po q hs for sleep AMITRIPTYLINE HCL 85276395846 No Longer Active Tesfaye Sherman MD Active AMITRIPTYLINE HCL 10 MG ORAL TABLET 1 tablet nightly by mout h for neuropathy AMITRIPTYLINE HCL 01503489410 No Longer Active MARCUS Stapleton Active DIFLUCAN 100 MG ORAL TABLET 1 tablet by mouth daily 20 21/03/11 FLUCONAZOLE 40324231604 No Longer Active Tesfaye Sherman MD Acti ve BACTRIM DS 800-160 MG ORAL TABLET 1 tab by mouth twice daily 201 07/08/06 TRIMETHOPRIM-SULFAMETHOXAZOLE 93187550892 No Longer Active Umer Sherman MD Active CLARITIN 10 MG ORAL TABLET Take one by mouth daily LORATADINE 37047419527 Active Tesfaye Sherman MD Active SUDAFED 12 HOUR 120 MG ORAL TABLET EXTENDED RELEASE 12 HOUR 1 pill twice daily if needed for congestion PSEUDOEPHEDRINE HCL 443599563 13 No Longer Active Tesfaye Sherman MD Active FENOFIBRATE 145 MG ORAL TABLET 1 by mouth daily FENOFIBRATE 19011138071 Active Laurence Dominguez Active GABAPENTIN 300 MG ORAL CAPSULE 1 po daily GABAP ENTIN 26690386177 No Longer Active Tesfaye Sherman MD Active HYDROCHLOROTHIAZIDE 12.5 MG ORAL CAPSULE 1 pill by mough daily 2 HYDROCHLOROTHIAZIDE 44503809384 No Longer Active León Mariee APRN Active VENLAFAXINE HCL 75 MG ORAL TABLET 1 am 1/2 at noon 201 07/07/09 VENLAFAXINE HCL 70896334150 No Longer Active León Mariee APRN Act trent DIFLUCAN 100 MG ORAL TABLET 1 tablet by mouth daily 20 19/02/09 FLUCONAZOLE 71876050673 No Longer Active León Mariee APRN Active DIFLUCAN 100 MG ORAL TABLET 1 tablet by mouth daily 20 19/02/09 FLUCONAZOLE 23155321702 No Longer Active León Mariee APRN Active OXYCODONE-ACETAMINOPHEN 5-325 MG ORAL TABLET Take one tablet by mouth every 6 hours 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 Use sparingly OXYCODONE-ACETAMINOPHEN 04093781998 Active Tesfaye villar MD Active CLONAZEPAM 0.5 MG ORAL TABLET Take 1/2 qam, and 1/2 qpm CLONAZEPAM 66862370239 Active Tesfaye Sherman MD Active PRELIEF 340 (65-50) MG (CA-P) ORAL TABLET CALCIUM GLYCEROPHOSPHATE 16834007554 No Longer Active Tesfaye Sherman MD Active SUDAFED 24 HOUR 240 MG ORAL TABLET EXTENDED RELEASE 24 HOUR 1 tab po daily PSEUDOEPHEDRINE HCL 61589095280 No Longer Active Raul Sherman MD Active RED YEAST RICE 600 MG ORAL CAPSULE 1 pill by mouth daily RED YEAST RICE EXTRACT 03905859238 No Longer Active Tesfaye Sherman MD Active REPHRESH PRO-B ORAL CAPSULE 1 tablet daily LACT OBACILLUS 50047886163 No Longer Active Tesfaye Sherman MD Active ABILIFY 2 MG ORAL TABLET 1 by mouth daily. MARIA ELENA PIPRAZOLE 92734052533 Active Tesfaye Sherman MD Active CYMBALTA 60 MG ORAL CAPSULE DELAYED RELEASE PARTICLES 1 cap by mouth daily for pain DULOXETINE HCL 31227755893 Active MARCUS Lindsay Active DIFLUCAN 100 MG ORAL TABLET 1 tablet by mouth daily 20 20/06/06 FLUCONAZOLE 01325365701 No Longer Active Tsefaye Sherman MD Acti ve PREDNISONE 20 MG ORAL TABLET 1 tablet by mouth twice d aily for 3 days, then 1 tablet daily for 3 days PREDNISONE 34225568342 No L onger Active Tesfaye Sherman MD Active BACTRIM DS 800-160 MG ORAL TABLET 1 tab by mouth twice daily 201 06/09/02 TRIMETHOPRIM-SULFAMETHOXAZOLE 83908656910 No Longer Active A mirna Dominguez Active DIFLUCAN 100 MG ORAL TABLET 1 tablet by mouth daily 20 20/05/01 FLUCONAZOLE 33238659666 No Longer Active Tesfaye Sherman MD Acti ve ZITHROMAX 250 MG ORAL TABLET 2 po today, then 1 po q days 2-5 20 20/04/28 AZITHROMYCIN 74488152278 No Longer Active Tesfaye Sherman MD Active MECLIZINE HCL 25 MG ORAL TABLET one tab po qday prn dizziness 20 17/09/06 MECLIZINE HCL 79106109670 No Longer Active Tesfaye Sherman MD Active PROAIR HFA 108 (90 BASE) MCG/ACT INHALATION AEROSOL SO LUTION 1 puff every 6 hours as needed ALBUTEROL SULFATE 66158637095 No Long er Active Tesfaye Sherman MD Active PREDNISONE 20 MG ORAL TABLET 1 tab twice daily for 3 d ay, then one daily for three days PREDNISONE 21909039142 No Longer Active Tesfaye Sherman MD Active MECLIZINE HCL 25 MG ORAL TABLET one 4 times a day as needed for dizziness MECLIZINE HCL 70309644883 Active Tesfaye Sherman MD Active AMOXICILLIN 500 MG ORAL CAPSULE 1 cap by mouth three times a day AMOXICILLIN 68434522427 No Longer Active Laurence Dominguez Acti ve DIFLUCAN 100 MG ORAL TABLET 1 tablet by mouth daily 20 19/08/26 FLUCONAZOLE 93263701563 No Longer Active Tesfaye Sherman MD Acti ve BACTRIM DS 800-160 MG ORAL TABLET 1 tab by mouth twice daily 201 05/10/28 TRIMETHOPRIM-SULFAMETHOXAZOLE 74787292981 No Longer Active A mirna Raduyen Active FOSAMAX 70 MG ORAL TABLET 1 po qweek. Take 30min prio r to first food/drink. Avoid lying down x 1 hour. ALENDRONATE SODIUM 95017040 144 No Longer Active Laurence Raida Active CYMBALTA 60 MG ORAL CAPSULE DELAYED RELEASE PARTICLES Take 1 tablet by mouth daily DULOXETINE HCL 77368222309 No Longer Active Edith Burch MD Active CYMBALTA 30 MG ORAL CAPSULE DELAYED RELEASE PARTICLES 1 cap by mouth daily with 60mg DULOXETINE HCL 69899054831 No Longer Active Jordan Burch MD Active FISH OIL 1000 MG ORAL CAPSULE DELAYED RELEASE 1 pill b y mouth daily for cholesterol OMEGA-3 FATTY ACIDS 58592053601 Active Cee Jaffe LPN Active DIFLUCAN 100 MG ORAL TABLET 1 tablet by mouth daily 19/03/05 FLUCONAZOLE 76870320438 No Longer Active Tesfaye Sherman MD Acti ve BACTRIM DS 800-160 MG ORAL TABLET 1 tab by mouth twice daily 201 05/06/28 TRIMETHOPRIM-SULFAMETHOXAZOLE 38169399827 No Longer Active Umer Sherman MD Active BACTRIM DS 800-160 MG ORAL TABLET 1 tab by mouth twice daily 201 05/04/15 TRIMETHOPRIM-SULFAMETHOXAZOLE 44511768323 No Longer Active Umer Sherman MD Active DIFLUCAN 150 MG ORAL TABLET 1 tablet by mouth daily 20 18/09/20 FLUCONAZOLE 59787016813 No Longer Active Tesfaye Sherman MD Acti ve BACTRIM DS 800-160 MG ORAL TABLET 1 tab by mouth twice daily 201 04/13/17 TRIMETHOPRIM-SULFAMETHOXAZOLE 13547840927 No Longer Active Umer Sherman MD Active CEFTIN 250 MG ORAL TABLET 1 tablet twice daily x 7 days CEFUROXIME AXETIL 95137366488 No Longer Active Tesfaye Sherman MD Active DIFLUCAN 100 MG ORAL TABLET 1 tablet by mouth every other da y for 2 doses FLUCONAZOLE 74781115402 No Longer Active Tesfaye barron MD Active DIFLUCAN 100 MG ORAL TABLET 1 tablet by mouth daily X 3 DAYS 201 04/09/01 FLUCONAZOLE 18377354336 No Longer Active Rj Cardosove MIRTAZAPINE 15 MG ORAL TABLET 1/2 tab by mouth at bedtime. 03/13 MIRTAZAPINE 49185078029 No Longer Active Tesfaye Sherman MD Active BACTRIM DS 800-160 MG ORAL TABLET 1 tab by mouth twice daily 201 04/09/01 TRIMETHOPRIM-SULFAMETHOXAZOLE 19821004086 No Longer Active D patricia Sherman MD Active PRAMIPEXOLE DIHYDROCHLORIDE 0.125 MG ORAL TABLET take 1 tablet po qhs for restless leg syndrome. PRAMIPEXOLE DIHYDROCHLORI DE 95120569691 No Longer Active Tesfaye Sherman MD Active MAGNESIUM 400 MG ORAL TABLET 1 tab po daily MAGNE SIUM 32984783797 Active Chelsea Cardenas APRN Active CETIRIZINE HCL 5 MG ORAL TABLET Take 1 tablet by mouth daily CETIRIZINE HCL 97519394954 No Longer Active Chelsea Cardenas APRN Activ e TRIMETHOPRIM 100 MG ORAL TABLET 1/2 qd TRIM ETHOPRIM 71865234820 No Longer Active Chelsea Cardenas APRN Active BACTRIM DS 800-160 MG ORAL TABLET 1 tab by mouth twice daily 201 04/04/11 TRIMETHOPRIM-SULFAMETHOXAZOLE 71899633989 No Longer Active Umer Sherman MD Active BACTRIM DS 800-160 MG ORAL TABLET 1 tab by mouth twice daily X 10 DAYS TRIMETHOPRIM-SULFAMETHOXAZOLE 60241325529 No Longer Active Tesfaye Sherman MD Active AMOXICILLIN 500 MG ORAL CAPSULE 1 cap by mouth three times a day AMOXICILLIN 29692705005 No Longer Active MARCUS Maravilla A ctive B-12 1000 MCG ORAL LOZENGE 1 tab po daily CYANO COBALAMIN 52386745120 Active Tesfaye Sherman MD Active VITAMIN D3 2000 UNIT ORAL TABLET 1 daily, for vitamin D deficien cy CHOLECALCIFEROL 76687285573 No Longer Active Tesfaye Sherman MD Active TIZANIDINE HCL 2 MG ORAL TABLET take 1-2 tablet by [facility] every day at bedtime at 9pm PRN TIZANIDINE HCL 56647109180 Active Tesfaye hewitt MD Active ZITHROMAX 250 MG ORAL TABLET 2 po today, then 1 po q days 2-5 20 15/02/10 AZITHROMYCIN 09819594803 No Longer Active Tesfaye Sherman MD Active BACTRIM DS 800-160 MG ORAL TABLET 1 tab by mouth twice daily 201 03/03/23 TRIMETHOPRIM-SULFAMETHOXAZOLE 63124116334 No Longer Active D patricia Sherman MD Active [facility] NIACIN FLUSH FREE 400-100 MG ORAL CAPSULE 1 daily NIACIN-INOSITOL 83565575786 Active Kayla Cooper MD Activ e DIFLUCAN 150 MG ORAL TABLET 1 qd FLUCONAZOL E 12409130370 No Longer Active Kayla Cooper MD Active FLUTICASONE PROPIONATE 50 MCG/ACT NASAL SUSPENSION 1 spray each nostril twice daily FLUTICASONE PROPIONATE 45774079679 Active Umer Sherman MD Active LOVASTATIN 20 MG ORAL TABLET Take 1 tablet by mouth daily LOVASTATIN 80122530134 No Longer Active Tesfaye Sherman MD Acti ve MELOXICAM 7.5 MG ORAL TABLET 1 tablet by mouth daily 2 MELOXICAM 90761778778 No Longer Active Tesfaye Sherman MD Acti ve GABAPENTIN 300 MG ORAL CAPSULE Take two tablets by mouth every e vening GABAPENTIN 22682112652 No Longer Active Edith Burch MD A ctive BACLOFEN 10 MG ORAL TABLET Take one tablet by mouth three times a d ay BACLOFEN 06378101428 Active Kayla Cooper MD Active GABAPENTIN 300 MG ORAL CAPSULE Take two tablets by mouth every e vening GABAPENTIN 300 MG ORAL CAPSULE 817656 GABAPENTIN I nactive MELOXICAM 7.5 MG ORAL TABLET 1 tablet by mouth daily 2 MELOXICAM 7.5 MG ORAL TABLET 536572 MELOXICAM Inactive LOVASTATIN 20 MG ORAL TABLET Take 1 tablet by mouth daily LOVASTATIN 20 MG ORAL TABLET 790584 LOVASTATIN Inactive DIFLUCAN 150 MG ORAL TABLET 1 qd DIFLUCAN 150 MG ORAL TABLET 085794 FLUCONAZOLE Inactive VITAMIN D3 2000 UNIT ORAL TABLET 1 daily, for vitamin D deficien cy VITAMIN D3 2000 UNIT ORAL TABLET CHOLECALCIFEROL Inactive AMOXICILLIN 500 MG ORAL CAPSULE 1 cap by mouth three times a day AMOXICILLIN 500 MG ORAL CAPSULE 839602 AMOXICILLIN Inactive BACTRIM DS 800-160 MG ORAL TABLET 1 tab by mouth twice daily X 10 DAYS BACTRIM DS 800-160 MG ORAL TABLET 795421 TRIMETHOPRIM-SULFAMETHOXAZOLE Inactive TRIMETHOPRIM 100 MG ORAL TABLET 1/2 qd 7 TRIMETHOPRIM 100 MG ORAL TABLET 095384 TRIMETHOPRIM Inactive CETIRIZINE HCL 5 MG ORAL TABLET Take 1 tablet by mouth daily CETIRIZINE HCL 5 MG ORAL TABLET 9845200 CETIRIZINE HCL Inactive PRAMIPEXOLE DIHYDROCHLORIDE 0.125 MG ORAL TABLET take 1 tablet po qhs for restless leg syndrome. PRAMIPEXOLE DIHYD ROCHLORIDE 0.125 MG ORAL TABLET 160182 PRAMIPEXOLE DIHYDROCHLORIDE Inactive MIRTAZAPINE 15 MG ORAL TABLET 1/2 tab by mouth at bedtime. 03/13 MIRTAZAPINE 15 MG ORAL TABLET 599643 MIRTAZAPINE In active DIFLUCAN 100 MG ORAL TABLET 1 tablet by mouth daily X 3 DAYS 201 04/09/01 DIFLUCAN 100 MG ORAL TABLET 531596 FLUCONAZOLE Inac tive DIFLUCAN 100 MG ORAL TABLET 1 tablet by mouth every other da y for 2 doses DIFLUCAN 100 MG ORAL TABLET 068584 FLUCONAZOLE Inactive CEFTIN 250 MG ORAL TABLET 1 tablet twice daily x 7 days CEFTIN 250 MG ORAL TABLET CEFUROXIME AXETIL Inactive CYMBALTA 30 MG ORAL CAPSULE DELAYED RELEASE PARTICLES 1 cap by mouth daily with 60mg CYMBALTA 30 MG ORAL CAPSULE DELAYED RELEASE PARTICLES 531568 DULOXETINE HCL Inactive CYMBALTA 60 MG ORAL CAPSULE DELAYED RELEASE PARTICLES Take 1 tablet by mouth daily CYMBALTA 60 MG ORAL CAPSULE DELAYED RELEA SE PARTICLES 282112 DULOXETINE HCL Inactive FOSAMAX 70 MG ORAL TABLET 1 po qweek. Take 30min prio r to first food/drink. Avoid lying down x 1 hour. FOSAMAX 70 MG ORAL TA BLET 103290 ALENDRONATE SODIUM Inactive DIFLUCAN 100 MG ORAL TABLET 1 tablet by mouth daily 19/08/26 DIFLUCAN 100 MG ORAL TABLET 19760711 FLUCONAZOLE Inactive PREDNISONE 20 MG ORAL TABLET 1 tab twice daily for 3 d ay, then one daily for three days PREDNISONE 20 MG ORAL TABLET 877177 PREDNIS ONE Inactive PROAIR HFA 108 (90 BASE) MCG/ACT INHALATION AEROSOL SO LUTION 1 puff every 6 hours as needed PROAIR HFA 108 (90 B ASE) MCG/ACT INHALATION AEROSOL SOLUTION ALBUTEROL SULFATE Inactive MECLIZINE HCL 25 MG ORAL TABLET one tab po qday prn dizziness 20 17/09/06 MECLIZINE HCL 25 MG ORAL TABLET 957289 MECLIZINE HCL Inactive PREDNISONE 20 MG ORAL TABLET 1 tablet by mouth twice d aily for 3 days, then 1 tablet daily for 3 days PREDNISONE 20 MG ORAL TA BLET 110149 PREDNISONE Inactive DIFLUCAN 100 MG ORAL TABLET 1 tablet by mouth daily 20/06/06 DIFLUCAN 100 MG ORAL TABLET 099096 FLUCONAZOLE Inactive REPHRESH PRO-B ORAL CAPSULE 1 tablet daily REPHRESH PRO-B ORAL CAPSULE LACTOBACILLUS Inactive RED YEAST RICE 600 MG ORAL CAPSULE 1 pill by mouth daily RED YEAST RICE 600 MG ORAL CAPSULE 038387 RED YEAST RICE EXTRACT In active SUDAFED [...] 20 19/02/09 DIFLUCAN 100 MG ORAL TABLET 444223 FLUCONAZOLE Inactive VENLAFAXINE HCL 75 MG ORAL TABLET 1 am 1/2 at noon 201 07/07/09 VENLAFAXINE HCL 75 MG ORAL TABLET 527339 VENLAFAXINE HCL Inacti ve GABAPENTIN 300 MG ORAL CAPSULE 1 po daily GABAPENTIN 300 MG ORAL CAPSULE 890685 GABAPENTIN Inactive SUDAFED 12 HOUR 120 MG ORAL TABLET EXTENDED RELEASE 12 HOUR 1 pill twice daily if needed for congestion SUDAFED 12 HOUR 120 MG ORAL TABLET EXTENDED RELEASE 12 HOUR PSEUDOEPHEDRINE HCL Inactive AMITRIPTYLINE HCL 10 MG ORAL TABLET 1 tablet nightly by mout h for neuropathy AMITRIPTYLINE HCL 10 MG ORAL TABLET 402206 AMITRIPTYLINE HCL Inactive AMITRIPTYLINE HCL 50 MG ORAL TABLET 1 po q hs for sleep AMITRIPTYLINE HCL 50 MG ORAL TABLET 994460 AMITRIPTYLINE HCL Inac tive PREDNISONE 20 MG ORAL TABLET 1 tab twice daily for 3 d ay, then one daily for three days PREDNISONE 20 MG ORAL TABLET 000325 PREDNIS ONE Inactive ROPINIROLE HCL 0.25 MG ORAL TABLET 1 TAB PO Q HS 05/31 ROPINIROLE HCL 0.25 MG ORAL TABLET 642628 ROPINIROLE HCL Inact trent ROPINIROLE HCL 0.5 MG ORAL TABLET 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 ROPINIROLE HCL 0.5 MG ORAL TABLET 903094 ROPINIR OLE HCL Inactive ROPINIROLE HCL 1 MG ORAL TABLET 1 tab po q hs ROPINIROLE HCL 1 MG ORAL TABLET 660458 ROPINIROLE HCL Inactive ROPINIROLE HCL 2 MG ORAL TABLET 1 po at hs 7 ROPINIROLE HCL 2 MG ORAL TABLET 971977 ROPINIROLE HCL Inactive MIRAPEX 0.125 MG ORAL TABLET 1 po nightly MIRAPEX 0.125 MG ORAL TABLET 061119 PRAMIPEXOLE DIHYDROCHLORIDE Inactive MIRAPEX 0.25 MG ORAL TABLET 1 tablet by mouth at night for r estless leg MIRAPEX 0.25 MG ORAL TABLET 234905 PRAM IPEXOLE DIHYDROCHLORIDE Inactive BACTRIM DS 800-160 MG ORAL TABLET 1 tab by mouth twice daily 201 03/03/23 BACTRIM DS 800-160 MG ORAL TABLET 19830105 TRIMETHOPRIM-SULFAMETHOXAZOLE Inactive ZITHROMAX 250 MG ORAL TABLET 2 po today, then 1 po q days 2-5 20 15/02/10 ZITHROMAX 250 MG ORAL TABLET 424083 AZITHROMYCIN [place] ctive BACTRIM DS 800-160 MG ORAL TABLET [...] a day AMOXICILLIN 500 MG ORAL CAPSULE 567312 AMOXICILLIN Inactive ZITHROMAX 250 MG ORAL TABLET 2 po today, then 1 po q days 2-5 20 20/04/28 ZITHROMAX 250 MG ORAL TABLET 057958 AZITHROMYCIN Mayela ctive DIFLUCAN 100 MG ORAL TABLET 1 tablet by mouth daily 20 20/05/01 DIFLUCAN 100 MG ORAL TABLET 643917 FLUCONAZOLE Inactive BACTRIM DS 800-160 MG ORAL TABLET 1 tab by mouth twice daily 201 06/09/02 BACTRIM DS 800-160 MG ORAL TABLET 512837 TRIMETHOPRIM-SULFAMETHOXAZOLE Inactive HYDROCHLOROTHIAZIDE 12.5 MG ORAL CAPSULE 1 pill by mough daily 2 HYDROCHLOROTHIAZIDE 12.5 MG ORAL CAPSULE HYDROCH LOROTHIAZIDE Inactive BACTRIM DS 800-160 MG ORAL TABLET 1 tab by mouth twice daily 201 07/08/06 BACTRIM DS 800-160 MG ORAL TABLET 863057 TRIMETHOPRIM-SULFAMETHOXAZOLE Inactive DIFLUCAN 100 MG ORAL TABLET 1 tablet by mouth daily 20 21/03/11 DIFLUCAN 100 MG ORAL TABLET 683206 FLUCONAZOLE Inactive Advance Directives Directive Description Start Date PERMISSION TO SHARE DISCUSSED WITH PATIENT -- NO DECISION MADE DURABLE POWER OF PLANT SENIOR MANAGER FOR HEALTHCARE DISCUSED WITH PATIENT -- FULL CODE Vital Signs Date Name Value Unit Range [...] Magnesium - Chemistry cholesterol, serum 196 mg/dL 185-591 3640/07/30 triglyceride, serum, fasting 86 mg/dL 30-200 HDL cholesterol, serum 41 mg/dL 32-60 LDL cholesterol, serum 138 mg/dL 0-130 sodium, serum 140 mmol/L 359-694 0405/07/30 carbon dioxide, venous blood 28.6 mmol/L 21.0-32 [...] Comp. M etabolic Panel, CBC - Chemistry calcium, serum 9.1 mg/dL 8.5-10.1 bilirubin, serum, total 0.50 mg/dL 0.00-1.00 protein, total urine random Negative mg/dL Negative sodium, serum 139 mmol/L 699-691 3873/11/07 carbon dioxide, venous blood 28.4 mmol/L 21.0-32 .0 potassium, serum 3.9 mmol/L 3.5-5.2 chloride, serum 101 mmol/L 98-107 blood glucose 99 mg/dL 65-95 urea nitrogen, blood 13 mg/dL 7-18 creatinine, serum 0.65 mg/dL 0.60-1.30 Estimated Glomerular Filtration Rate (calc) 100 (?) mL/min/1.73m2 = OR > 60 mL/min alanine aminotransferase (SGPT), serum 21 U/L 12-78 aspartate aminotransferase (SGOT), serum 16 U/L 15-37 RBC, urine, dipstick Trace-lysed Negative Lab Report: UADIP W/MICRO, AUTO, Comp. M [...] Comp. M etabolic Panel, CBC - Urinalysis glucose, urine, semiquantitative Negative Neg ative ketones, urine, by test strip Negative Negati ve bilirubin, urine Negative Negative urine color Yellow Colorless;Lightyellow;St raw;Yellow appearance, urine Clear Clear specific gravity, urine 1.015 1.000-1.030 pH, urine, semiquantitative 5.5 5.0-8.5 urobilinogen, urine, semiquantitative (dipstick) 0.2 E .U./dL Normal leukocyte esterase, urine, by dipstick Negative Negative nitrite, urine, semiquantitative Negative Neg ative Encounters Code Encounter Date Provider Facility CPT-56429 [id number] Vst-Est Level IV 14:08:03 C BRIDGET Sherman MD [facility]-29453 Level 3 Est. Patient 18:06:36 CDT Tesfaye pearson MD [facility]-40365 59884-Gmp Vst-Est Level IV 17:09:34 C BRIDGET Sherman MD [facility]-49773 Level 3 Est. Patient 17:27:08 CDT León Bandar hernandez APRN [facility]-19054 14003-Lag Vst-Est Level IV 14:00:[address] Tesfaye Sherman MD [facility]-30698 65476-Pmt Vst-Est Level IV 19:27:[address] Tefsaye Sherman MD [facility]-75347 58016-Pva Vst-Est Level IV 10:41:41 C BRIDGET Sherman MD [facility]-45182 46257-Tcz Vst-Est Level III 09:40:56 CDT Tesfaye Sherman MD [facility]-07331 Level 4 Est. Patient 22:18:12 CDT Tesfaye pearson MD [facility]-58331 Level 4 Est. Patient 14:44:33 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 Tsefaye pearson MD [facility]-35331 Level 4 Est. Patient 13:55:29 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 Tesfaye pearson MD [facility] CPT-22669 Level 4 Est. Patient 17:07:34 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 Tesfaye pearson MD [facility] CPT-81733 Level 4 Est. Patient 13:56:54 CDT Tesfaye pearson MD [facility] CPT-94293 Level 4 Est. Patient 13:24:25 CDT Chelsea Hardin yvon MERCADO [facility] CPT-44922 Level 4 Est. Patient 09:14:56 CDT Tesfaye pearson MD [facility]-55584 Level 4 Est. Patient 18:40:25 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 Tesfaye pearson MD [facility]-60398 Level 4 Est. Patient 18:13:07 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 Tesfaye pearson MD [facility] CPT-15348 Level 3 Est. Patient 10:46:32 CDT Rj cotto DO [facility] CPT-62736 Level 4 Est. Patient 20:19:25 CDT Tesfaye pearson MD [facility] CPT-68034 Level 3 Est. Patient 09:07:31 CDT Tesfaye pearson MD [facility] CPT-16600 Level 4 Est. Patient 13:12:56 CDT Tesfaye pearson MD [facility] CPT-17384 Level 4 Est. Patient 21:24:55 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 Tesfaye pearson MD [facility] CPT-54650 Level 3 Est. Patient 13:45:04 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 Tesfaye pearson MD [facility] CPT-78886 Level 4 Est. Patient 13:50:45 CDT Tesfaye pearson MD [facility] CPT-75361 Level 3 Est. Patient 10:16:10 CDT Tesfaye pearson MD [facility] CPT-36985 Level 3 Est. Patient 16:36:07 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 Kayla jameson MD [facility] CPT-12742 Level 4 Est. Patient 16:00:14 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 Tesfaye pearson MD [facility] CPT-27777 Level 4 Est. Patient 11:02:24 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 Tesfaye pearson MD [facility] CPT-18370 Level 3 Est. Patient 20:21:43 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 Kayla jameson MD [facility] CPT-48177 Level 3 Est. Patient 13:27:28 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 Kayla jameson MD [facility] CPT-07731 Level 4 Est. Patient 15:57:17 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 Tesfaye pearson MD [facility] CPT-59677 Level 3 New Patient 13:25:47 CDT Tesfaye kidd MD [facility] CPT-92068 Level 3 New Patient 17:22:21 CDT J John angel MD [facility] Procedures Code Procedure Name Date Entry Date Standard Desc ription CPT-40685 Bone Density - XRAY USE ONLY 15:21:33 CDT 2 CPT-06118 Venipuncture Draw Fee 16:12:22 CDT CPT-G0439 Subsequent Annual Wellness Exam 18:06:36 CDT CPT-G0439 Subsequent Annual Wellness Exam 22:18:11 CDT CPT-78625 Bone Density - XRAY USE ONLY 11:43:58 CDT CPT-14947 Bone Density - XRAY USE ONLY 10:05:16 CDT 2 CPT-67115 Prv Med New Pt 40-64 yrs 18:19:25 CDT 2016 CPT-15448 Foot, right, comp min 3V - XRAY USE ONLY 10:38:34 CDT CPT-G0439 Subsequent Annual Wellness Exam 13:55:04 CDT CPT-G0438 Initial Annual Wellness Exam 11:23:17 CD T CPT-J2930 Solu Medrol 125 mg (Methyl Prednisolone Sodium Succinate) 17:29:12 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 CPT-11141 Abx/Therapy Injection 17:29:11 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 CPT-J2930 Solu Medrol 125 mg (Methyl Prednisolone Sodium Succinate) 12:34:38 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 CPT-J3420 Vitamin B12 1000mcg (Cyanocobalamin) 09:12:55 CDT CPT-J3420 Vitamin B12 1000mcg (Cyanocobalamin) 16:28:06 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 CPT-28545 Venipuncture Draw Fee 08:39:53 CDT CPT-J3420 Vitamin B12 1000mcg (Cyanocobalamin) 08:46:22 CDT CPT-96665 Abx/Therapy Injection 08:46:22 CDT CPT-J3420 Vitamin B12 1000mcg (Cyanocobalamin) 08:41:26 CDT CPT-60371 Abx/Therapy Injection 08:41:26 CDT CPT-J3420 Vitamin B12 1000mcg (Cyanocobalamin) 08:57:15 CDT CPT-19895 Abx/Therapy Injection 08:57:15 CDT CPT-J3420 Vitamin B12 1000mcg (Cyanocobalamin) 10:59:03 CDT CPT-89796 Abx/Therapy Injection 10:59:03 CDT CPT-J3420 Vitamin B12 1000mcg (Cyanocobalamin) 15:05:39 CDT CPT-55768 Abx/Therapy Injection 15:05:39 CDT CPT-J3420 Vitamin B12 1000mcg (Cyanocobalamin) 13:50:45 CDT CPT-J3420 Vitamin B12 1000mcg (Cyanocobalamin) 08:48:55 CDT CPT-56405 Abx/Therapy Injection 08:48:55 CDT CPT-J3420 Vitamin B12 1000mcg (Cyanocobalamin) 09:14:54 CDT CPT-40270 Abx/Therapy Injection 09:14:54 CDT CPT-J3420 Vitamin B12 1000mcg (Cyanocobalamin) 09:06:06 CDT CPT-13328 Abx/Therapy Injection 09:06:06 CDT CPT-J3420 Vitamin B12 1000mcg (Cyanocobalamin) 09:49:14 CDT CPT-43286 Abx/Therapy Injection 09:49:14 CDT CPT-J3420 Vitamin B12 1000mcg (Cyanocobalamin) 09:10:30 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 CPT-46147 Abx/Therapy Injection 09:10:30 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 CPT-J3420 Vitamin B12 1000mcg (Cyanocobalamin) 09:11:07 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 CPT-99675 Abx/Therapy Injection 09:11:07 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 CPT-J3420 Vitamin B12 1000mcg (Cyanocobalamin) 09:57:03 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 CPT-10507 Abx/Therapy Injection 09:57:03 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 CPT-J3420 Vitamin B12 1000mcg (Cyanocobalamin) 09:23:21 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 CPT-87906 Abx/Therapy Injection 09:23:21 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 CPT-79949 Urine Dip (Floor Use Only) 20:21:44 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 201 02/12/11 CPT-04105 UA Dip Auto (Floor Use Only) 10:04:39 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 2 CPT-43733 Urine Dip (Floor Use Only) 13:27:28 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 201 02/12/01 CPT-90456 Bladder Scan 13:27:28 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 CPT-98229 Abd single AP View 14:30:51 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 CPT-OV Office Visit 10:15:43 CDT CPT-02686 Urine Dip (Floor Use Only) 17:22:21 CDT 201 02/09/02 CPT-38906 Bladder Scan 17:22:21 CDT
--- OUTSIDE RECORDS SUMMARY | 2020-05-05 11:11 | XMS REPORT | Clinical Summary ---
Author Author Jeri Hanley Organization [employer] Address Unknown Phone Unavailable Allergies, Adverse Reactions, [...] MD Anxiety state, unspecified Spasticity 781.0 Active Tefsaye Sherman MD Abnormal involuntary movements Pelvic Pain-Female 625.9 Active Kayla paul MD Unspecified symptom associated with female genital organs Fatigue 780.79 Active Tesfaye Sherman MD Other malaise and fatigue Sinusitis 461.9 Active Tesfaye Sherman MD Acute sinusitis, unspecified Interstitial Cystitis 595.1 Active Kayla richmond MD Chronic interstitial cystitis Preventive health care V70.0 Resolved Tesfaye Sherman MD Routine general medical examination at [facility] acility Sinusitis 461.9 Resolved Tesfaye [...] MD Routine general medical examination at a [facility] acility Body Mass Index 21.0-21.9 Adult [...] bilateral 782.3 Active 201 07/07/09 León Kodi IMAGING SCIENCE PROFESSOR Edema Peripheral neuropathy 356.9 Active Tesfaye lamb [...] night for restless leg. 2018 PRAMIPEXOLE DIHYDROCHLORIDE 33331855922 Active Laurence Raida Active MIRAPEX 0.25 MG ORAL TABLET 1 tablet by mouth at night for r estless leg PRAMIPEXOLE DIHYDROCHLORIDE 13535097092 No Longer Act trent Laurence Raida Active HYDROXYZINE HCL 25 MG ORAL TABLET 1 tab po at HS prn sleep HYDROXYZINE HCL 18630959678 Active Laurence Raida Active DIFLUCAN 100 MG ORAL TABLET 1 tablet by mouth daily FLUCONAZOLE 97667537160 Active Laurence Raida Active MIRAPEX 0.125 MG ORAL TABLET 1 po nightly PRAMIPEXOLE DIHYDROCHLORIDE 40029611536 No Longer Active Laurence Raida Active ROPINIROLE HCL 2 MG ORAL TABLET 1 po at hs ROPI NIROLE HCL 22917632915 No Longer Active Laurence Raida Active ROPINIROLE HCL 1 MG ORAL TABLET 1 tab po q hs ROPINIROLE HCL 08462531864 No Longer Active Laurence Raida Active ROPINIROLE HCL 0.5 MG ORAL TABLET 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 ROPINIROLE HCL 03439433988 No Longer Active MARCUS Panchal Active ROPINIROLE HCL 0.25 MG ORAL TABLET 1 TAB PO Q HS 05/31 ROPINIROLE HCL 65381909870 No Longer Active Tesfaye Sherman MD Ac tive PREDNISONE 20 MG ORAL TABLET 1 tab twice daily for 3 d ay, then one daily for three days PREDNISONE 35249449897 No Longer Active Tesfaye Sherman MD Active AMITRIPTYLINE HCL 50 MG ORAL TABLET 1 po q hs for sleep AMITRIPTYLINE HCL 04245361107 No Longer Active Tesfaye Sherman MD Active AMITRIPTYLINE HCL 10 MG ORAL TABLET 1 tablet nightly by mout h for neuropathy AMITRIPTYLINE HCL 97779320671 No Longer Active MARCUS Stapleton Active DIFLUCAN 100 MG ORAL TABLET 1 tablet by mouth daily 20 21/03/11 FLUCONAZOLE 26724841485 No Longer Active Tesfaye Sherman MD Acti ve BACTRIM DS 800-160 MG ORAL TABLET 1 tab by mouth twice daily 201 07/08/06 TRIMETHOPRIM-SULFAMETHOXAZOLE 42452208505 No Longer Active Umer Sherman MD Active CLARITIN 10 MG ORAL TABLET Take one by mouth daily LORATADINE 76308795314 Active Tesfaye Sherman MD Active SUDAFED 12 HOUR 120 MG ORAL TABLET EXTENDED RELEASE 12 HOUR 1 pill twice daily if needed for congestion PSEUDOEPHEDRINE HCL 999544615 13 No Longer Active Tesfaye Sherman MD Active FENOFIBRATE 145 MG ORAL TABLET 1 by mouth daily FENOFIBRATE 12850338898 Active Laurence Dominguez Active GABAPENTIN 300 MG ORAL CAPSULE 1 po daily GABAP ENTIN 77549468601 No Longer Active Tesfaye Sherman MD Active HYDROCHLOROTHIAZIDE 12.5 MG ORAL CAPSULE 1 pill by mough daily 2 HYDROCHLOROTHIAZIDE 82793944535 No Longer Active León Mariee APRN Active VENLAFAXINE HCL 75 MG ORAL TABLET 1 am 1/2 at noon 201 07/07/09 VENLAFAXINE HCL 32896648910 No Longer Active León Mariee APRN Act trent DIFLUCAN 100 MG ORAL TABLET 1 tablet by mouth daily 20 19/02/09 FLUCONAZOLE 08620975088 No Longer Active León Mariee APRN Active DIFLUCAN 100 MG ORAL TABLET 1 tablet by mouth daily 20 19/02/09 FLUCONAZOLE 17556394892 No Longer Active León Mariee APRN Active OXYCODONE-ACETAMINOPHEN 5-325 MG ORAL TABLET Take one tablet by mouth every 6 hours 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 Use sparingly OXYCODONE-ACETAMINOPHEN 66492849523 Active Tesfaye villar MD Active CLONAZEPAM 0.5 MG ORAL TABLET Take 1/2 qam, and 1/2 qpm CLONAZEPAM 03920308786 Active Tesfaye Sherman MD Active PRELIEF 340 (65-50) MG (CA-P) ORAL TABLET CALCIUM GLYCEROPHOSPHATE 29389492043 No Longer Active Tesfaye Sherman MD Active SUDAFED 24 HOUR 240 MG ORAL TABLET EXTENDED RELEASE 24 HOUR 1 tab po daily PSEUDOEPHEDRINE HCL 67539881144 No Longer Active Raul Sherman MD Active RED YEAST RICE 600 MG ORAL CAPSULE 1 pill by mouth daily RED YEAST RICE EXTRACT 91906795514 No Longer Active Tesfaye Sherman MD Active REPHRESH PRO-B ORAL CAPSULE 1 tablet daily LACT OBACILLUS 47132962085 No Longer Active Tesfaye Sherman MD Active ABILIFY 2 MG ORAL TABLET 1 by mouth daily. MARIA ELENA PIPRAZOLE 86335976133 Active Tesfaye Sherman MD Active CYMBALTA 60 MG ORAL CAPSULE DELAYED RELEASE PARTICLES 1 cap by mouth daily for pain DULOXETINE HCL 34378155970 Active MARCUS Lindsay Active DIFLUCAN 100 MG ORAL TABLET 1 tablet by mouth daily 20 20/06/06 FLUCONAZOLE 41443113857 No Longer Active Tesfaye Sherman MD Acti ve PREDNISONE 20 MG ORAL TABLET 1 tablet by mouth twice d aily for 3 days, then 1 tablet daily for 3 days PREDNISONE 24541545063 No L onger Active Tesfaye Sherman MD Active BACTRIM DS 800-160 MG ORAL TABLET 1 tab by mouth twice daily 201 06/09/02 TRIMETHOPRIM-SULFAMETHOXAZOLE 06094537855 No Longer Active A mirna Dominguez Active DIFLUCAN 100 MG ORAL TABLET 1 tablet by mouth daily 20 20/05/01 FLUCONAZOLE 09877005661 No Longer Active Tesfaye Sherman MD Acti ve ZITHROMAX 250 MG ORAL TABLET 2 po today, then 1 po q days 2-5 20 20/04/28 AZITHROMYCIN 30214000435 No Longer Active Tesfaye Sherman MD Active MECLIZINE HCL 25 MG ORAL TABLET one tab po qday prn dizziness 20 17/09/06 MECLIZINE HCL 50329950141 No Longer Active Tesfaye Sherman MD Active PROAIR HFA 108 (90 BASE) MCG/ACT INHALATION AEROSOL SO LUTION 1 puff every 6 hours as needed ALBUTEROL SULFATE 21394197121 No Long er Active Tesfaye Sherman MD Active PREDNISONE 20 MG ORAL TABLET 1 tab twice daily for 3 d ay, then one daily for three days PREDNISONE 70303065647 No Longer Active Tesfaye Sherman MD Active MECLIZINE HCL 25 MG ORAL TABLET one 4 times a day as needed for dizziness MECLIZINE HCL 02526180462 Active Tesfaye Sherman MD Active AMOXICILLIN 500 MG ORAL CAPSULE 1 cap by mouth three times a day AMOXICILLIN 90689528205 No Longer Active Laurence Dominguez Acti ve DIFLUCAN 100 MG ORAL TABLET 1 tablet by mouth daily 20 19/08/26 FLUCONAZOLE 74170024172 No Longer Active Tesfaye Sherman MD Acti ve BACTRIM DS 800-160 MG ORAL TABLET 1 tab by mouth twice daily 201 05/10/28 TRIMETHOPRIM-SULFAMETHOXAZOLE 42756764353 No Longer Active A mirna Raduyen Active FOSAMAX 70 MG ORAL TABLET 1 po qweek. Take 30min prio r to first food/drink. Avoid lying down x 1 hour. ALENDRONATE SODIUM 02675716 144 No Longer Active Laurence Raida Active CYMBALTA 60 MG ORAL CAPSULE DELAYED RELEASE PARTICLES Take 1 tablet by mouth daily DULOXETINE HCL 47663174846 No Longer Active Edith Burch MD Active CYMBALTA 30 MG ORAL CAPSULE DELAYED RELEASE PARTICLES 1 cap by mouth daily with 60mg DULOXETINE HCL 61246074356 No Longer Active Jordan Burch MD Active FISH OIL 1000 MG ORAL CAPSULE DELAYED RELEASE 1 pill b y mouth daily for cholesterol OMEGA-3 FATTY ACIDS 30833592130 Active Cee Jaffe LPN Active DIFLUCAN 100 MG ORAL TABLET 1 tablet by mouth daily 19/03/05 FLUCONAZOLE 10252213086 No Longer Active Tesfaye Sherman MD Acti ve BACTRIM DS 800-160 MG ORAL TABLET 1 tab by mouth twice daily 201 05/06/28 TRIMETHOPRIM-SULFAMETHOXAZOLE 69201269291 No Longer Active Umer Sherman MD Active BACTRIM DS 800-160 MG ORAL TABLET 1 tab by mouth twice daily 201 05/04/15 TRIMETHOPRIM-SULFAMETHOXAZOLE 05533689254 No Longer Active Umer Sherman MD Active DIFLUCAN 150 MG ORAL TABLET 1 tablet by mouth daily 20 18/09/20 FLUCONAZOLE 30228075919 No Longer Active Tesfaye Sherman MD Acti ve BACTRIM DS 800-160 MG ORAL TABLET 1 tab by mouth twice daily 201 04/13/17 TRIMETHOPRIM-SULFAMETHOXAZOLE 33966177323 No Longer Active Umer Sherman MD Active CEFTIN 250 MG ORAL TABLET 1 tablet twice daily x 7 days CEFUROXIME AXETIL 69796640446 No Longer Active Tesfaye Sherman MD Active DIFLUCAN 100 MG ORAL TABLET 1 tablet by mouth every other da y for 2 doses FLUCONAZOLE 55368220541 No Longer Active Tesfaye barron MD Active DIFLUCAN 100 MG ORAL TABLET 1 tablet by mouth daily X 3 DAYS 201 04/09/01 FLUCONAZOLE 83877091825 No Longer Active Rj Cardosove MIRTAZAPINE 15 MG ORAL TABLET 1/2 tab by mouth at bedtime. 03/13 MIRTAZAPINE 11292295029 No Longer Active Tesfaye Sherman MD Active BACTRIM DS 800-160 MG ORAL TABLET 1 tab by mouth twice daily 201 04/09/01 TRIMETHOPRIM-SULFAMETHOXAZOLE 45415698138 No Longer Active D patricia Sherman MD Active PRAMIPEXOLE DIHYDROCHLORIDE 0.125 MG ORAL TABLET take 1 tablet po qhs for restless leg syndrome. PRAMIPEXOLE DIHYDROCHLORI DE 09672300426 No Longer Active Tesfaye Sherman MD Active MAGNESIUM 400 MG ORAL TABLET 1 tab po daily MAGNE SIUM 71722162838 Active Chelsea Cardenas APRN Active CETIRIZINE HCL 5 MG ORAL TABLET Take 1 tablet by mouth daily CETIRIZINE HCL 12875050044 No Longer Active Chelsea Cardenas APRN Activ e TRIMETHOPRIM 100 MG ORAL TABLET 1/2 qd TRIM ETHOPRIM 31621282121 No Longer Active Chelsea Cardenas APRN Active BACTRIM DS 800-160 MG ORAL TABLET 1 tab by mouth twice daily 201 04/04/11 TRIMETHOPRIM-SULFAMETHOXAZOLE 18761438778 No Longer Active Umer Sherman MD Active BACTRIM DS 800-160 MG ORAL TABLET 1 tab by mouth twice daily X 10 DAYS TRIMETHOPRIM-SULFAMETHOXAZOLE 31302439407 No Longer Active Tesfaye Sherman MD Active AMOXICILLIN 500 MG ORAL CAPSULE 1 cap by mouth three times a day AMOXICILLIN 39712464126 No Longer Active MARCUS Maravilla A ctive B-12 1000 MCG ORAL LOZENGE 1 tab po daily CYANO COBALAMIN 48785272530 Active Tesfaye Sherman MD Active VITAMIN D3 2000 UNIT ORAL TABLET 1 daily, for vitamin D deficien cy CHOLECALCIFEROL 21430875797 No Longer Active Tesfaye Sherman MD Active TIZANIDINE HCL 2 MG ORAL TABLET take 1-2 tablet by [facility] every day at bedtime at 9pm PRN TIZANIDINE HCL 70502176470 Active Tesfaye hewitt MD Active ZITHROMAX 250 MG ORAL TABLET 2 po today, then 1 po q days 2-5 20 15/02/10 AZITHROMYCIN 16109904164 No Longer Active Tesfaye Sherman MD Active BACTRIM DS 800-160 MG ORAL TABLET 1 tab by mouth twice daily 201 03/03/23 TRIMETHOPRIM-SULFAMETHOXAZOLE 75512138569 No Longer Active D patricia Sherman MD Active [facility] NIACIN FLUSH FREE 400-100 MG ORAL CAPSULE 1 daily NIACIN-INOSITOL 32053485008 Active Kayla Cooper MD Activ e DIFLUCAN 150 MG ORAL TABLET 1 qd FLUCONAZOL E 09989066067 No Longer Active Kayla Cooper MD Active FLUTICASONE PROPIONATE 50 MCG/ACT NASAL SUSPENSION 1 spray each nostril twice daily FLUTICASONE PROPIONATE 69131443164 Active Umer Sherman MD Active LOVASTATIN 20 MG ORAL TABLET Take 1 tablet by mouth daily LOVASTATIN 89226194195 No Longer Active Tesfaye Sherman MD Acti ve MELOXICAM 7.5 MG ORAL TABLET 1 tablet by mouth daily 2 MELOXICAM 53244642548 No Longer Active Tesfaye Sherman MD Acti ve GABAPENTIN 300 MG ORAL CAPSULE Take two tablets by mouth every e vening GABAPENTIN 00855192700 No Longer Active Edith Burch MD A ctive BACLOFEN 10 MG ORAL TABLET Take one tablet by mouth three times a d ay BACLOFEN 18585618571 Active Kayla Cooper MD Active GABAPENTIN 300 MG ORAL CAPSULE Take two tablets by mouth every e vening GABAPENTIN 300 MG ORAL CAPSULE 963367 GABAPENTIN I nactive MELOXICAM 7.5 MG ORAL TABLET 1 tablet by mouth daily 2 MELOXICAM 7.5 MG ORAL TABLET 324173 MELOXICAM Inactive LOVASTATIN 20 MG ORAL TABLET Take 1 tablet by mouth daily LOVASTATIN 20 MG ORAL TABLET 856810 LOVASTATIN Inactive DIFLUCAN 150 MG ORAL TABLET 1 qd DIFLUCAN 150 MG ORAL TABLET 385505 FLUCONAZOLE Inactive VITAMIN D3 2000 UNIT ORAL TABLET 1 daily, for vitamin D deficien cy VITAMIN D3 2000 UNIT ORAL TABLET CHOLECALCIFEROL Inactive AMOXICILLIN 500 MG ORAL CAPSULE 1 cap by mouth three times a day AMOXICILLIN 500 MG ORAL CAPSULE 411094 AMOXICILLIN Inactive BACTRIM DS 800-160 MG ORAL TABLET 1 tab by mouth twice daily X 10 DAYS BACTRIM DS 800-160 MG ORAL TABLET 347430 TRIMETHOPRIM-SULFAMETHOXAZOLE Inactive TRIMETHOPRIM 100 MG ORAL TABLET 1/2 qd 7 TRIMETHOPRIM 100 MG ORAL TABLET 863918 TRIMETHOPRIM Inactive CETIRIZINE HCL 5 MG ORAL TABLET Take 1 tablet by mouth daily CETIRIZINE HCL 5 MG ORAL TABLET 4665457 CETIRIZINE HCL Inactive PRAMIPEXOLE DIHYDROCHLORIDE 0.125 MG ORAL TABLET take 1 tablet po qhs for restless leg syndrome. PRAMIPEXOLE DIHYD ROCHLORIDE 0.125 MG ORAL TABLET 876446 PRAMIPEXOLE DIHYDROCHLORIDE Inactive MIRTAZAPINE 15 MG ORAL TABLET 1/2 tab by mouth at bedtime. 03/13 MIRTAZAPINE 15 MG ORAL TABLET 221198 MIRTAZAPINE In active DIFLUCAN 100 MG ORAL TABLET 1 tablet by mouth daily X 3 DAYS 201 04/09/01 DIFLUCAN 100 MG ORAL TABLET 814568 FLUCONAZOLE Inac tive DIFLUCAN 100 MG ORAL TABLET 1 tablet by mouth every other da y for 2 doses DIFLUCAN 100 MG ORAL TABLET 479111 FLUCONAZOLE Inactive CEFTIN 250 MG ORAL TABLET 1 tablet twice daily x 7 days CEFTIN 250 MG ORAL TABLET CEFUROXIME AXETIL Inactive CYMBALTA 30 MG ORAL CAPSULE DELAYED RELEASE PARTICLES 1 cap by mouth daily with 60mg CYMBALTA 30 MG ORAL CAPSULE DELAYED RELEASE PARTICLES 536294 DULOXETINE HCL Inactive CYMBALTA 60 MG ORAL CAPSULE DELAYED RELEASE PARTICLES Take 1 tablet by mouth daily CYMBALTA 60 MG ORAL CAPSULE DELAYED RELEA SE PARTICLES 690827 DULOXETINE HCL Inactive FOSAMAX 70 MG ORAL TABLET 1 po qweek. Take 30min prio r to first food/drink. Avoid lying down x 1 hour. FOSAMAX 70 MG ORAL TA BLET 416845 ALENDRONATE SODIUM Inactive DIFLUCAN 100 MG ORAL TABLET 1 tablet by mouth daily 19/08/26 DIFLUCAN 100 MG ORAL TABLET 19760711 FLUCONAZOLE Inactive PREDNISONE 20 MG ORAL TABLET 1 tab twice daily for 3 d ay, then one daily for three days PREDNISONE 20 MG ORAL TABLET 520362 PREDNIS ONE Inactive PROAIR HFA 108 (90 BASE) MCG/ACT INHALATION AEROSOL SO LUTION 1 puff every 6 hours as needed PROAIR HFA 108 (90 B ASE) MCG/ACT INHALATION AEROSOL SOLUTION ALBUTEROL SULFATE Inactive MECLIZINE HCL 25 MG ORAL TABLET one tab po qday prn dizziness 20 17/09/06 MECLIZINE HCL 25 MG ORAL TABLET 398136 MECLIZINE HCL Inactive PREDNISONE 20 MG ORAL TABLET 1 tablet by mouth twice d aily for 3 days, then 1 tablet daily for 3 days PREDNISONE 20 MG ORAL TA BLET 638177 PREDNISONE Inactive DIFLUCAN 100 MG ORAL TABLET 1 tablet by mouth daily 20/06/06 DIFLUCAN 100 MG ORAL TABLET 936274 FLUCONAZOLE Inactive REPHRESH PRO-B ORAL CAPSULE 1 tablet daily REPHRESH PRO-B ORAL CAPSULE LACTOBACILLUS Inactive RED YEAST RICE 600 MG ORAL CAPSULE 1 pill by mouth daily RED YEAST RICE 600 MG ORAL CAPSULE 498150 RED YEAST RICE EXTRACT In active SUDAFED [...] 20 19/02/09 DIFLUCAN 100 MG ORAL TABLET 732782 FLUCONAZOLE Inactive VENLAFAXINE HCL 75 MG ORAL TABLET 1 am 1/2 at noon 201 07/07/09 VENLAFAXINE HCL 75 MG ORAL TABLET 811395 VENLAFAXINE HCL Inacti ve GABAPENTIN 300 MG ORAL CAPSULE 1 po daily GABAPENTIN 300 MG ORAL CAPSULE 504891 GABAPENTIN Inactive SUDAFED 12 HOUR 120 MG ORAL TABLET EXTENDED RELEASE 12 HOUR 1 pill twice daily if needed for congestion SUDAFED 12 HOUR 120 MG ORAL TABLET EXTENDED RELEASE 12 HOUR PSEUDOEPHEDRINE HCL Inactive AMITRIPTYLINE HCL 10 MG ORAL TABLET 1 tablet nightly by mout h for neuropathy AMITRIPTYLINE HCL 10 MG ORAL TABLET 415031 AMITRIPTYLINE HCL Inactive AMITRIPTYLINE HCL 50 MG ORAL TABLET 1 po q hs for sleep AMITRIPTYLINE HCL 50 MG ORAL TABLET 311156 AMITRIPTYLINE HCL Inac tive PREDNISONE 20 MG ORAL TABLET 1 tab twice daily for 3 d ay, then one daily for three days PREDNISONE 20 MG ORAL TABLET 649707 PREDNIS ONE Inactive ROPINIROLE HCL 0.25 MG ORAL TABLET 1 TAB PO Q HS 05/31 ROPINIROLE HCL 0.25 MG ORAL TABLET 327677 ROPINIROLE HCL Inact trent ROPINIROLE HCL 0.5 MG ORAL TABLET 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 ROPINIROLE HCL 0.5 MG ORAL TABLET 774705 ROPINIR OLE HCL Inactive ROPINIROLE HCL 1 MG ORAL TABLET 1 tab po q hs ROPINIROLE HCL 1 MG ORAL TABLET 908902 ROPINIROLE HCL Inactive ROPINIROLE HCL 2 MG ORAL TABLET 1 po at hs 7 ROPINIROLE HCL 2 MG ORAL TABLET 366149 ROPINIROLE HCL Inactive MIRAPEX 0.125 MG ORAL TABLET 1 po nightly MIRAPEX 0.125 MG ORAL TABLET 373568 PRAMIPEXOLE DIHYDROCHLORIDE Inactive MIRAPEX 0.25 MG ORAL TABLET 1 tablet by mouth at night for r estless leg MIRAPEX 0.25 MG ORAL TABLET 402591 PRAM IPEXOLE DIHYDROCHLORIDE Inactive BACTRIM DS 800-160 MG ORAL TABLET 1 tab by mouth twice daily 201 03/03/23 BACTRIM DS 800-160 MG ORAL TABLET 19830105 TRIMETHOPRIM-SULFAMETHOXAZOLE Inactive ZITHROMAX 250 MG ORAL TABLET 2 po today, then 1 po q days 2-5 20 15/02/10 ZITHROMAX 250 MG ORAL TABLET 538234 AZITHROMYCIN [place] ctive BACTRIM DS 800-160 MG ORAL TABLET [...] a day AMOXICILLIN 500 MG ORAL CAPSULE 361358 AMOXICILLIN Inactive ZITHROMAX 250 MG ORAL TABLET 2 po today, then 1 po q days 2-5 20 20/04/28 ZITHROMAX 250 MG ORAL TABLET 345414 AZITHROMYCIN Mayela ctive DIFLUCAN 100 MG ORAL TABLET 1 tablet by mouth daily 20 20/05/01 DIFLUCAN 100 MG ORAL TABLET 608589 FLUCONAZOLE Inactive BACTRIM DS 800-160 MG ORAL TABLET 1 tab by mouth twice daily 201 06/09/02 BACTRIM DS 800-160 MG ORAL TABLET 847989 TRIMETHOPRIM-SULFAMETHOXAZOLE Inactive HYDROCHLOROTHIAZIDE 12.5 MG ORAL CAPSULE 1 pill by mough daily 2 HYDROCHLOROTHIAZIDE 12.5 MG ORAL CAPSULE HYDROCH LOROTHIAZIDE Inactive BACTRIM DS 800-160 MG ORAL TABLET 1 tab by mouth twice daily 201 07/08/06 BACTRIM DS 800-160 MG ORAL TABLET 758617 TRIMETHOPRIM-SULFAMETHOXAZOLE Inactive DIFLUCAN 100 MG ORAL TABLET 1 tablet by mouth daily 20 21/03/11 DIFLUCAN 100 MG ORAL TABLET 591869 FLUCONAZOLE Inactive Advance Directives Directive Description Start Date PERMISSION TO SHARE DISCUSSED WITH PATIENT -- NO DECISION MADE DURABLE POWER OF SOLUTIONS DEVELOPMENT ANALYST FOR HEALTHCARE DISCUSED WITH PATIENT -- FULL [...] Magnesium - Chemistry cholesterol, serum 196 mg/dL 585-363 8606/07/30 triglyceride, serum, fasting 86 mg/dL 30-200 HDL cholesterol, serum 41 mg/dL 32-60 LDL cholesterol, serum 138 mg/dL 0-130 sodium, serum 140 mmol/L 150-222 3205/07/30 carbon dioxide, venous blood 28.6 mmol/L 21.0-32 [...] Negative mg/dL Negative sodium, serum 139 mmol/L 338-435 5918/11/07 carbon dioxide, venous blood 28.4 mmol/L 21.0-32 [...] ative Encounters Code Encounter Date Provider Facility CPT-73516 [id number] Vst-Est Level IV 14:08:03 C BRIDGET Sherman MD [facility]-97796 Level 3 Est. Patient 18:06:36 CDT Tesfaye pearson MD [facility]-70991 [id number] Vst-Est Level IV 17:09:34 C BRIDGET Sherman MD [facility]-67516 Level 3 Est. Patient 17:27:08 CDT León Bandar hernandez APRN [facility]-35481 [id number] Vst-Est Level IV 14:00:[address] Tesfaye Sherman MD [facility]-97029 [id number] Vst-Est Level IV 19:27:[address] Tesfaye Sherman MD [facility]-37390 [id number] Vst-Est Level IV 10:41:41 C BRIDGET Sherman MD [facility]-95208 [id number] Vst-Est Level III 09:40:56 CDT Tesfaye Sherman MD [facility]-00467 Level 4 Est. Patient 22:18:12 CDT Tesfaye pearson MD [facility]-38057 Level 4 Est. Patient 14:44:33 TECHNICAL SERVICES COORDINATOR Tesfaye pearson MD [facility]-24277 Level 4 Est. Patient 13:55:29 TECHNICAL SERVICES COORDINATOR Tesfaye pearson MD [facility] CPT-57275 Level 4 Est. Patient 17:07:34 TECHNICAL SERVICES COORDINATOR Tesfaye pearson MD [facility] CPT-72355 Level 4 Est. Patient 13:56:54 CDT Tesfaye pearson MD [facility] CPT-67071 Level 4 Est. Patient 13:24:25 CDT Chelsea Hardin yvon MERCADO [facility] CPT-29578 Level 4 Est. Patient 09:14:56 CDT Tesfaye pearson MD [facility]-09709 Level 4 Est. Patient 18:40:25 TECHNICAL SERVICES COORDINATOR Tesfaye pearson MD [facility]-21818 Level 4 Est. Patient 18:13:07 TECHNICAL SERVICES COORDINATOR Tesfaye pearson MD [facility] CPT-91288 Level 3 Est. Patient 10:46:32 CDT Rj cotto DO [facility] CPT-06776 Level 4 Est. Patient 20:19:25 CDT Tesfaye pearson MD [facility] CPT-87147 Level 3 Est. Patient 09:07:31 CDT Tesfaye pearson MD [facility] CPT-57956 Level 4 Est. Patient 13:12:56 CDT Tesfaye pearson MD [facility] CPT-67256 Level 4 Est. Patient 21:24:55 TECHNICAL SERVICES COORDINATOR Tesfaye pearson MD [facility] CPT-00805 Level 3 Est. Patient 13:45:04 TECHNICAL SERVICES COORDINATOR Tesfaye pearson MD [facility] CPT-46073 Level 4 Est. Patient 13:50:45 CDT Tesfaye pearson MD [facility] CPT-69940 Level 3 Est. Patient 10:16:10 CDT Tesfaye pearson MD [facility] CPT-33881 Level 3 Est. Patient 16:36:07 TECHNICAL SERVICES COORDINATOR Kayla jameson MD [facility] CPT-46215 Level 4 Est. Patient 16:00:14 TECHNICAL SERVICES COORDINATOR Tesfaye pearson MD [facility] CPT-85590 Level 4 Est. Patient 11:02:24 TECHNICAL SERVICES COORDINATOR Tesfaye pearson MD [facility] CPT-53315 Level 3 Est. Patient 20:21:43 TECHNICAL SERVICES COORDINATOR Kayla jameson MD [facility] CPT-98274 Level 3 Est. Patient 13:27:28 TECHNICAL SERVICES COORDINATOR Kayla jameson MD [facility] CPT-11842 Level 4 Est. Patient 15:57:17 TECHNICAL SERVICES COORDINATOR Tesfaye pearson MD [facility] CPT-19040 Level 3 New Patient 13:25:47 CDT Tesfaye kidd MD [facility] CPT-61648 Level 3 New Patient 17:22:21 CDT J John angel MD [facility] Procedures Code Procedure Name Date Entry Date Standard Desc ription CPT-17679 Bone Density - XRAY USE ONLY 15:21:33 CDT 2 CPT-71621 Venipuncture Draw Fee 16:12:22 CDT CPT-G0439 Subsequent Annual Wellness Exam 18:06:36 CDT CPT-G0439 Subsequent Annual Wellness Exam 22:18:11 CDT CPT-31594 Bone Density - XRAY USE ONLY 11:43:58 CDT CPT-99524 Bone Density - XRAY USE ONLY 10:05:16 CDT 2 CPT-73777 Prv Med New Pt 40-64 yrs 18:19:25 CDT 2016 CPT-72881 Foot, right, comp min 3V - XRAY USE ONLY 10:38:34 CDT CPT-G0439 Subsequent Annual Wellness Exam 13:55:04 CDT CPT-G0438 Initial Annual Wellness Exam 11:23:17 CD T CPT-J2930 Solu Medrol 125 mg (Methyl Prednisolone Sodium Succinate) 17:29:12 TECHNICAL SERVICES COORDINATOR CPT-54615 Abx/Therapy Injection 17:29:11 TECHNICAL SERVICES COORDINATOR CPT-J2930 Solu Medrol 125 mg (Methyl Prednisolone Sodium Succinate) 12:34:38 TECHNICAL SERVICES COORDINATOR CPT-J3420 Vitamin B12 1000mcg (Cyanocobalamin) 09:12:55 CDT CPT-J3420 Vitamin B12 1000mcg (Cyanocobalamin) 16:28:06 TECHNICAL SERVICES COORDINATOR CPT-32844 Venipuncture Draw Fee 08:39:53 CDT CPT-J3420 Vitamin B12 1000mcg (Cyanocobalamin) 08:46:22 CDT CPT-00394 Abx/Therapy Injection 08:46:22 CDT CPT-J3420 Vitamin B12 1000mcg (Cyanocobalamin) 08:41:26 CDT CPT-91731 Abx/Therapy Injection 08:41:26 CDT CPT-J3420 Vitamin B12 1000mcg (Cyanocobalamin) 08:57:15 CDT CPT-14763 Abx/Therapy Injection 08:57:15 CDT CPT-J3420 Vitamin B12 1000mcg (Cyanocobalamin) 10:59:03 CDT CPT-40694 Abx/Therapy Injection 10:59:03 CDT CPT-J3420 Vitamin B12 1000mcg (Cyanocobalamin) 15:05:39 CDT CPT-10528 Abx/Therapy Injection 15:05:39 CDT CPT-J3420 Vitamin B12 1000mcg (Cyanocobalamin) 13:50:45 CDT CPT-J3420 Vitamin B12 1000mcg (Cyanocobalamin) 08:48:55 CDT CPT-31135 Abx/Therapy Injection 08:48:55 CDT CPT-J3420 Vitamin B12 1000mcg (Cyanocobalamin) 09:14:54 CDT CPT-41839 Abx/Therapy Injection 09:14:54 CDT CPT-J3420 Vitamin B12 1000mcg (Cyanocobalamin) 09:06:06 CDT CPT-67324 Abx/Therapy Injection 09:06:06 CDT CPT-J3420 Vitamin B12 1000mcg (Cyanocobalamin) 09:49:14 CDT CPT-07646 Abx/Therapy Injection 09:49:14 CDT CPT-J3420 Vitamin B12 1000mcg (Cyanocobalamin) 09:10:30 TECHNICAL SERVICES COORDINATOR CPT-32228 Abx/Therapy Injection 09:10:30 TECHNICAL SERVICES COORDINATOR CPT-J3420 Vitamin B12 1000mcg (Cyanocobalamin) 09:11:07 TECHNICAL SERVICES COORDINATOR CPT-29939 Abx/Therapy Injection 09:11:07 TECHNICAL SERVICES COORDINATOR CPT-J3420 Vitamin B12 1000mcg (Cyanocobalamin) 09:57:03 TECHNICAL SERVICES COORDINATOR CPT-13264 Abx/Therapy Injection 09:57:03 TECHNICAL SERVICES COORDINATOR CPT-J3420 Vitamin B12 1000mcg (Cyanocobalamin) 09:23:21 TECHNICAL SERVICES COORDINATOR CPT-08091 Abx/Therapy Injection 09:23:21 TECHNICAL SERVICES COORDINATOR CPT-43938 Urine Dip (Floor Use Only) 20:21:44 TECHNICAL SERVICES COORDINATOR 201 02/12/11 CPT-33101 UA Dip Auto (Floor Use Only) 10:04:39 TECHNICAL SERVICES COORDINATOR 2 CPT-93796 Urine Dip (Floor Use Only) 13:27:28 TECHNICAL SERVICES COORDINATOR 201 02/12/01 CPT-14226 Bladder Scan 13:27:28 TECHNICAL SERVICES COORDINATOR CPT-70323 Abd single AP View 14:30:51 TECHNICAL SERVICES COORDINATOR CPT-OV Office Visit 10:15:43 CDT CPT-01992 Urine Dip (Floor Use Only) 17:22:21 CDT 201 02/09/02 CPT-11919 Bladder Scan 17:22:21 CDT
--- OUTSIDE RECORDS SUMMARY | 2020-05-05 11:12 | XMS REPORT | Clinical Summary ---
Author Author Jeri Hanley Organization [employer] Address Unknown Phone Unavailable Allergies, Adverse Reactions, [...] Routine general medical examination at [facility] acility Sinusitis 461.9 Resolved Tesfaye Sherman [...] general medical examination at a [facility] acility Body Mass Index 21.0-21.9 Adult [...] Tesfaye Sherman MD Dysuria High risk meds terminal carman use V58.6 Active Tesfaye Sherman MD Long-term (current) drug use Yeast infection 112.9 Inactive Tesfaye Sherman MD Candidiasis of unspecified site Upper respiratory infection 465.9 Inactive Tesfaye Sherman MD Acute upper respiratory infections of un specified site Lower extremity edema, bilateral 782.3 Active 201 07/07/09 León Kodi ACADEMIC SPECIALIST Edema Peripheral neuropathy 356.9 Active Tesfaye [...] Provider Patient Instruction HYDROXYZINE HCL 25 MG ORAL TABLET 1 tab po at HS prn sleep HYDROXYZINE HCL 81371318337 Active Laurence Raida Active DIFLUCAN 100 MG ORAL TABLET 1 tablet by mouth daily FLUCONAZOLE 88011630034 Active Laurence Raida Active MIRAPEX 0.25 MG ORAL TABLET 1 tablet by mouth at night for r estless leg PRAMIPEXOLE DIHYDROCHLORIDE 48547251727 Active Laurence Ra duyen Active MIRAPEX 0.125 MG ORAL TABLET 1 po nightly PRAMIPEXOLE DIHYDROCHLORIDE 80053995591 No Longer Active Laurence Raida Active ROPINIROLE HCL 2 MG ORAL TABLET 1 po at hs ROPI NIROLE HCL 31012211009 No Longer Active Laurence Raida Active ROPINIROLE HCL 1 MG ORAL TABLET 1 tab po q hs ROPINIROLE HCL 77039863906 No Longer Active Laurence Raida Active ROPINIROLE HCL 0.5 MG ORAL TABLET 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 ROPINIROLE HCL 32101341697 No Longer Active MARCUS Panchal Active ROPINIROLE HCL 0.25 MG ORAL TABLET 1 TAB PO Q HS 05/31 ROPINIROLE HCL 72489289613 No Longer Active Tesfaye Sherman MD Ac tive PREDNISONE 20 MG ORAL TABLET 1 tab twice daily for 3 d ay, then one daily for three days PREDNISONE 36057902609 No Longer Active Tesfaye Sherman MD Active AMITRIPTYLINE HCL 50 MG ORAL TABLET 1 po q hs for sleep AMITRIPTYLINE HCL 50337694078 No Longer Active Tesfaye Sherman MD Active AMITRIPTYLINE HCL 10 MG ORAL TABLET 1 tablet nightly by mout h for neuropathy AMITRIPTYLINE HCL 39022927412 No Longer Active MARCUS Stapleton Active DIFLUCAN 100 MG ORAL TABLET 1 tablet by mouth daily 20 21/03/11 FLUCONAZOLE 90553233259 No Longer Active Tesfaye Sherman MD Acti ve BACTRIM DS 800-160 MG ORAL TABLET 1 tab by mouth twice daily 201 07/08/06 TRIMETHOPRIM-SULFAMETHOXAZOLE 84008693376 No Longer Active Umer Sherman MD Active CLARITIN 10 MG ORAL TABLET Take one by mouth daily LORATADINE 17767143257 Active Tesfaye Sherman MD Active SUDAFED 12 HOUR 120 MG ORAL TABLET EXTENDED RELEASE 12 HOUR 1 pill twice daily if needed for congestion PSEUDOEPHEDRINE HCL 856866252 13 No Longer Active Tesfaye Sherman MD Active FENOFIBRATE 145 MG ORAL TABLET 1 by mouth daily FENOFIBRATE 26094851716 Active Laurence Dominguez Active GABAPENTIN 300 MG ORAL CAPSULE 1 po daily GABAP ENTIN 08135191050 No Longer Active Tesfaye Sherman MD Active HYDROCHLOROTHIAZIDE 12.5 MG ORAL CAPSULE 1 pill by mough daily 2 HYDROCHLOROTHIAZIDE 12854873598 No Longer Active León Mariee APRN Active VENLAFAXINE HCL 75 MG ORAL TABLET 1 am 1/2 at noon 201 07/07/09 VENLAFAXINE HCL 62282006977 No Longer Active León Mariee APRN Act trent DIFLUCAN 100 MG ORAL TABLET 1 tablet by mouth daily 20 19/02/09 FLUCONAZOLE 03825397474 No Longer Active León Mariee APRN Active DIFLUCAN 100 MG ORAL TABLET 1 tablet by mouth daily 20 19/02/09 FLUCONAZOLE 23978851172 No Longer Active León Mariee APRN Active OXYCODONE-ACETAMINOPHEN 5-325 MG ORAL TABLET Take one tablet by mouth every 6 hours 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 Use sparingly OXYCODONE-ACETAMINOPHEN 00998741120 Active Tesfaye villar MD Active CLONAZEPAM 0.5 MG ORAL TABLET Take 1/2 qam, and 1/2 qpm CLONAZEPAM 60156399637 Active Tesfaye Sherman MD Active PRELIEF 340 (65-50) MG (CA-P) ORAL TABLET CALCIUM GLYCEROPHOSPHATE 28359054642 No Longer Active Tesfaye Sherman MD Active SUDAFED 24 HOUR 240 MG ORAL TABLET EXTENDED RELEASE 24 HOUR 1 tab po daily PSEUDOEPHEDRINE HCL 80479113705 No Longer Active Raul Sherman MD Active RED YEAST RICE 600 MG ORAL CAPSULE 1 pill by mouth daily RED YEAST RICE EXTRACT 59814613019 No Longer Active Tesfaye Sherman MD Active REPHRESH PRO-B ORAL CAPSULE 1 tablet daily LACT OBACILLUS 92454373512 No Longer Active Tesfaye Sherman MD Active ABILIFY 2 MG ORAL TABLET 1 by mouth daily. MARIA ELENA PIPRAZOLE 89190527355 Active Tesfaye Sherman MD Active CYMBALTA 60 MG ORAL CAPSULE DELAYED RELEASE PARTICLES 1 cap by mouth daily for pain DULOXETINE HCL 78618837264 Active MARCUS Lindsay Active DIFLUCAN 100 MG ORAL TABLET 1 tablet by mouth daily 20 20/06/06 FLUCONAZOLE 43679872430 No Longer Active Tesfaye Sherman MD Acti ve PREDNISONE 20 MG ORAL TABLET 1 tablet by mouth twice d aily for 3 days, then 1 tablet daily for 3 days PREDNISONE 58421533976 No L onger Active Tesfaye Sherman MD Active BACTRIM DS 800-160 MG ORAL TABLET 1 tab by mouth twice daily 201 06/09/02 TRIMETHOPRIM-SULFAMETHOXAZOLE 82427208133 No Longer Active Fer Dominguez Active DIFLUCAN 100 MG ORAL TABLET 1 tablet by mouth daily 20 20/05/01 FLUCONAZOLE 16817044213 No Longer Active Tesfaye Sherman MD Acti ve ZITHROMAX 250 MG ORAL TABLET 2 po today, then 1 po q days 2-5 20 20/04/28 AZITHROMYCIN 81253794594 No Longer Active Tesfaye Sherman MD Active MECLIZINE HCL 25 MG ORAL TABLET one tab po qday prn dizziness 20 17/09/06 MECLIZINE HCL 39749887001 No Longer Active Tesfaye Sherman MD Active PROAIR HFA 108 (90 BASE) MCG/ACT INHALATION AEROSOL SO LUTION 1 puff every 6 hours as needed ALBUTEROL SULFATE 45731732393 No Long er Active Tesfaye Sherman MD Active PREDNISONE 20 MG ORAL TABLET 1 tab twice daily for 3 d ay, then one daily for three days PREDNISONE 92359662375 No Longer Active Tesfaye Sherman MD Active MECLIZINE HCL 25 MG ORAL TABLET one 4 times a day as needed for dizziness MECLIZINE HCL 56580253811 Active Tesfaye Sherman MD Active AMOXICILLIN 500 MG ORAL CAPSULE 1 cap by mouth three times a day AMOXICILLIN 30433651106 No Longer Active Laurence Dominguez Acti ve DIFLUCAN 100 MG ORAL TABLET 1 tablet by mouth daily 20 19/08/26 FLUCONAZOLE 27567086403 No Longer Active Tesfaye Sherman MD Acti ve BACTRIM DS 800-160 MG ORAL TABLET 1 tab by mouth twice daily 201 05/10/28 TRIMETHOPRIM-SULFAMETHOXAZOLE 35281383771 No Longer Active Fer Dominguez Active FOSAMAX 70 MG ORAL TABLET 1 po qweek. Take 30min prio r to first food/drink. Avoid lying down x 1 hour. ALENDRONATE SODIUM 71926626 144 No Longer Active Laurence Raduyen Active CYMBALTA 60 MG ORAL CAPSULE DELAYED RELEASE PARTICLES Take 1 tablet by mouth daily DULOXETINE HCL 68055466951 No Longer Active Edith Burch MD Active CYMBALTA 30 MG ORAL CAPSULE DELAYED RELEASE PARTICLES 1 cap by mouth daily with 60mg DULOXETINE HCL 49807924729 No Longer Active Jordan Burch MD Active FISH OIL 1000 MG ORAL CAPSULE DELAYED RELEASE 1 pill b y mouth daily for cholesterol OMEGA-3 FATTY ACIDS 23770390560 Active Cee Jaffe LPN Active DIFLUCAN 100 MG ORAL TABLET 1 tablet by mouth daily 20 19/03/05 FLUCONAZOLE 28167527567 No Longer Active Tesfaye Sherman MD Acti ve BACTRIM DS 800-160 MG ORAL TABLET 1 tab by mouth twice daily 201 05/06/28 TRIMETHOPRIM-SULFAMETHOXAZOLE 41876590284 No Longer Active Umer Sherman MD Active BACTRIM DS 800-160 MG ORAL TABLET 1 tab by mouth twice daily 201 05/04/15 TRIMETHOPRIM-SULFAMETHOXAZOLE 64986795910 No Longer Active Umer Sherman MD Active DIFLUCAN 150 MG ORAL TABLET 1 tablet by mouth daily 20 18/09/20 FLUCONAZOLE 08610208484 No Longer Active Tesfaye Sherman MD Acti ve BACTRIM DS 800-160 MG ORAL TABLET 1 tab by mouth twice daily 201 04/13/17 TRIMETHOPRIM-SULFAMETHOXAZOLE 61465532504 No Longer Active Umer Sherman MD Active CEFTIN 250 MG ORAL TABLET 1 tablet twice daily x 7 days CEFUROXIME AXETIL 23890061106 No Longer Active Tesfaye Sherman MD Active DIFLUCAN 100 MG ORAL TABLET 1 tablet by mouth every other da y for 2 doses FLUCONAZOLE 04897988700 No Longer Active Tesfaye barron MD Active DIFLUCAN 100 MG ORAL TABLET 1 tablet by mouth daily X 3 DAYS 201 04/09/01 FLUCONAZOLE 40375882521 No Longer Active Rj Ravi MIRTAZAPINE 15 MG ORAL TABLET 1/2 tab by mouth at bedtime. 03/13 MIRTAZAPINE 58896090619 No Longer Active Tesfaye Sherman MD Active BACTRIM DS 800-160 MG ORAL TABLET 1 tab by mouth twice daily 201 04/09/01 TRIMETHOPRIM-SULFAMETHOXAZOLE 24718700160 No Longer Active Umer Sherman MD Active PRAMIPEXOLE DIHYDROCHLORIDE 0.125 MG ORAL TABLET take 1 tablet po qhs for restless leg syndrome. PRAMIPEXOLE DIHYDROCHLORI DE 89903917527 No Longer Active Tesfaye Sherman MD Active MAGNESIUM 400 MG ORAL TABLET 1 tab po daily MAGNE SIUM 45065526720 Active Chelsea Cardenas APRN Active CETIRIZINE HCL 5 MG ORAL TABLET Take 1 tablet by mouth daily CETIRIZINE HCL 33991899310 No Longer Active Chelsea Cardenas APRN Activ e TRIMETHOPRIM 100 MG ORAL TABLET 1/2 qd TRIM ETHOPRIM 56005956429 No Longer Active Chelsea Cardenas APRN Active BACTRIM DS 800-160 MG ORAL TABLET 1 tab by mouth twice daily 201 04/04/11 TRIMETHOPRIM-SULFAMETHOXAZOLE 62696039196 No Longer Active Umer Sherman MD Active BACTRIM DS 800-160 MG ORAL TABLET 1 tab by mouth twice daily X 10 DAYS TRIMETHOPRIM-SULFAMETHOXAZOLE 51671726568 No Longer Active Tesfaye Sherman MD Active AMOXICILLIN 500 MG ORAL CAPSULE 1 cap by mouth three times a day AMOXICILLIN 70868742557 No Longer Active Adriana Arredondo Fer [place] ctive B-12 1000 MCG ORAL LOZENGE 1 tab po daily CYANO COBALAMIN 21683992704 Active Tesfaye Sherman MD Active VITAMIN D3 2000 UNIT ORAL TABLET 1 daily, for vitamin D deficien cy CHOLECALCIFEROL 79907171283 No Longer Active Tesfaye Sherman MD Active TIZANIDINE HCL 2 MG ORAL TABLET take 1-2 tablet by mo [facility] every day at bedtime at 9pm PRN TIZANIDINE HCL 55438766876 Active Tesfaye hewitt MD Active ZITHROMAX 250 MG ORAL TABLET 2 po today, then 1 po q days 2-5 20 15/02/10 AZITHROMYCIN 10477404606 No Longer Active Tesfaye Sherman MD Active BACTRIM DS 800-160 MG ORAL TABLET 1 tab by mouth twice daily 201 03/03/23 TRIMETHOPRIM-SULFAMETHOXAZOLE 75001182846 No Longer Active Umer Sherman MD Active [facility] NIACIN FLUSH FREE 400-100 MG ORAL CAPSULE 1 daily NIACIN-INOSITOL 48597705483 Active Kayla Cooper MD Activ e DIFLUCAN 150 MG ORAL TABLET 1 qd FLUCONAZOL E 62555137876 No Longer Active Kayla Cooper MD Active FLUTICASONE PROPIONATE 50 MCG/ACT NASAL SUSPENSION 1 spray each nostril twice daily FLUTICASONE PROPIONATE 53040402807 Active Umer Sherman MD Active LOVASTATIN 20 MG ORAL TABLET Take 1 tablet by mouth daily LOVASTATIN 84090670058 No Longer Active Tesfaye Sherman MD Acti ve MELOXICAM 7.5 MG ORAL TABLET 1 tablet by mouth daily 2 MELOXICAM 66093441150 No Longer Active Tesfaye Sherman MD Acti ve GABAPENTIN 300 MG ORAL CAPSULE Take two tablets by mouth every e vening GABAPENTIN 60846215861 No Longer Active Edith Burch MD A ctive BACLOFEN 10 MG ORAL TABLET Take one tablet by mouth three times a d ay BACLOFEN 13977694337 Active Kayla Cooper MD Active GABAPENTIN 300 MG ORAL CAPSULE Take two tablets by mouth every e vening GABAPENTIN 300 MG ORAL CAPSULE 030069 GABAPENTIN I nactive MELOXICAM 7.5 MG ORAL TABLET 1 tablet by mouth daily 2 MELOXICAM 7.5 MG ORAL TABLET 290400 MELOXICAM Inactive LOVASTATIN 20 MG ORAL TABLET Take 1 tablet by mouth daily LOVASTATIN 20 MG ORAL TABLET 668322 LOVASTATIN Inactive DIFLUCAN 150 MG ORAL TABLET 1 qd DIFLUCAN 150 MG ORAL TABLET 920214 FLUCONAZOLE Inactive VITAMIN D3 2000 UNIT ORAL TABLET 1 daily, for vitamin D deficien cy VITAMIN D3 2000 UNIT ORAL TABLET CHOLECALCIFEROL Inactive AMOXICILLIN 500 MG ORAL CAPSULE 1 cap by mouth three times a day AMOXICILLIN 500 MG ORAL CAPSULE 299928 AMOXICILLIN Inactive BACTRIM DS 800-160 MG ORAL TABLET 1 tab by mouth twice daily X 10 DAYS BACTRIM DS 800-160 MG ORAL TABLET 558288 TRIMETHOPRIM-SULFAMETHOXAZOLE Inactive TRIMETHOPRIM 100 MG ORAL TABLET 1/2 qd 7 TRIMETHOPRIM 100 MG ORAL TABLET 819376 TRIMETHOPRIM Inactive CETIRIZINE HCL 5 MG ORAL TABLET Take 1 tablet by mouth daily CETIRIZINE HCL 5 MG ORAL TABLET 4066649 CETIRIZINE HCL Inactive PRAMIPEXOLE DIHYDROCHLORIDE 0.125 MG ORAL TABLET take 1 tablet po qhs for restless leg syndrome. PRAMIPEXOLE DIHYD ROCHLORIDE 0.125 MG ORAL TABLET 799194 PRAMIPEXOLE DIHYDROCHLORIDE Inactive MIRTAZAPINE 15 MG ORAL TABLET 1/2 tab by mouth at bedtime. 03/13 MIRTAZAPINE 15 MG ORAL TABLET 120165 MIRTAZAPINE In active DIFLUCAN 100 MG ORAL TABLET 1 tablet by mouth daily X 3 DAYS 201 04/09/01 DIFLUCAN 100 MG ORAL TABLET 497654 FLUCONAZOLE Inac tive DIFLUCAN 100 MG ORAL TABLET 1 tablet by mouth every other da y for 2 doses DIFLUCAN 100 MG ORAL TABLET 048885 FLUCONAZOLE Inactive CEFTIN 250 MG ORAL TABLET 1 tablet twice daily x 7 days CEFTIN 250 MG ORAL TABLET CEFUROXIME AXETIL Inactive CYMBALTA 30 MG ORAL CAPSULE DELAYED RELEASE PARTICLES 1 cap by mouth daily with 60mg CYMBALTA 30 MG ORAL CAPSULE DELAYED RELEASE PARTICLES 496000 DULOXETINE HCL Inactive CYMBALTA 60 MG ORAL CAPSULE DELAYED RELEASE PARTICLES Take 1 tablet by mouth daily CYMBALTA 60 MG ORAL CAPSULE DELAYED RELEA SE PARTICLES 773955 DULOXETINE HCL Inactive FOSAMAX 70 MG ORAL TABLET 1 po qweek. Take 30min prio r to first food/drink. Avoid lying down x 1 hour. FOSAMAX 70 MG ORAL TA BLET 235817 ALENDRONATE SODIUM Inactive DIFLUCAN 100 MG ORAL TABLET 1 tablet by mouth daily 19/08/26 DIFLUCAN 100 MG ORAL TABLET 19760711 FLUCONAZOLE Inactive PREDNISONE 20 MG ORAL TABLET 1 tab twice daily for 3 d ay, then one daily for three days PREDNISONE 20 MG ORAL TABLET 802593 PREDNIS ONE Inactive PROAIR HFA 108 (90 BASE) MCG/ACT INHALATION AEROSOL SO LUTION 1 puff every 6 hours as needed PROAIR HFA 108 (90 B ASE) MCG/ACT INHALATION AEROSOL SOLUTION ALBUTEROL SULFATE Inactive MECLIZINE HCL 25 MG ORAL TABLET one tab po qday prn dizziness 20 17/09/06 MECLIZINE HCL 25 MG ORAL TABLET 916649 MECLIZINE HCL Inactive PREDNISONE 20 MG ORAL TABLET 1 tablet by mouth twice d aily for 3 days, then 1 tablet daily for 3 days PREDNISONE 20 MG ORAL TA BLET 929001 PREDNISONE Inactive DIFLUCAN 100 MG ORAL TABLET 1 tablet by mouth daily 20/06/06 DIFLUCAN 100 MG ORAL TABLET 112239 FLUCONAZOLE Inactive REPHRESH PRO-B ORAL CAPSULE 1 tablet daily REPHRESH PRO-B ORAL CAPSULE LACTOBACILLUS Inactive RED YEAST RICE 600 MG ORAL CAPSULE 1 pill by mouth daily RED YEAST RICE 600 MG ORAL CAPSULE 549091 RED YEAST RICE EXTRACT In active SUDAFED [...] 100 MG ORAL TABLET 19760711 FLUCONAZOLE Inactive VENLAFAXINE HCL 75 MG ORAL TABLET 1 am 1/2 at noon 201 07/07/09 VENLAFAXINE HCL 75 MG ORAL TABLET 819114 VENLAFAXINE HCL Inacti ve GABAPENTIN 300 MG ORAL CAPSULE 1 po daily GABAPENTIN 300 MG ORAL CAPSULE 188097 GABAPENTIN Inactive SUDAFED 12 HOUR 120 MG ORAL TABLET EXTENDED RELEASE 12 HOUR 1 pill twice daily if needed for congestion SUDAFED 12 HOUR 120 MG ORAL TABLET EXTENDED RELEASE 12 HOUR PSEUDOEPHEDRINE HCL Inactive AMITRIPTYLINE HCL 10 MG ORAL TABLET 1 tablet nightly by mout h for neuropathy AMITRIPTYLINE HCL 10 MG ORAL TABLET 971963 AMITRIPTYLINE HCL Inactive AMITRIPTYLINE HCL 50 MG ORAL TABLET 1 po q hs for sleep AMITRIPTYLINE HCL 50 MG ORAL TABLET 546181 AMITRIPTYLINE HCL Inac tive PREDNISONE 20 MG ORAL TABLET 1 tab twice daily for 3 d ay, then one daily for three days PREDNISONE 20 MG ORAL TABLET 664962 PREDNIS ONE Inactive ROPINIROLE HCL 0.25 MG ORAL TABLET 1 TAB PO Q HS 05/31 ROPINIROLE HCL 0.25 MG ORAL TABLET 097296 ROPINIROLE HCL Inact trent ROPINIROLE HCL 0.5 MG ORAL TABLET 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 ROPINIROLE HCL 0.5 MG ORAL TABLET 726164 ROPINIR OLE HCL Inactive ROPINIROLE HCL 1 MG ORAL TABLET 1 tab po q hs ROPINIROLE HCL 1 MG ORAL TABLET 697835 ROPINIROLE HCL Inactive ROPINIROLE HCL 2 MG ORAL TABLET 1 po at hs 7 ROPINIROLE HCL 2 MG ORAL TABLET 326511 ROPINIROLE HCL Inactive MIRAPEX 0.125 MG ORAL TABLET 1 po nightly MIRAPEX 0.125 MG ORAL TABLET 241823 PRAMIPEXOLE DIHYDROCHLORIDE Inactive BACTRIM DS 800-160 MG ORAL TABLET 1 tab by mouth twice daily 201 03/03/23 BACTRIM DS 800-160 MG ORAL TABLET 19830105 TRIMETHOPRIM-SULFAMETHOXAZOLE Inactive ZITHROMAX 250 MG ORAL TABLET 2 po today, then 1 po q days 2-5 20 15/02/10 ZITHROMAX 250 MG ORAL TABLET 103244 AZITHROMYCIN Mayela ctive BACTRIM DS 800-160 MG [...] 20 19/03/05 DIFLUCAN 100 MG ORAL TABLET 037675 FLUCONAZOLE Inactive BACTRIM DS 800-160 MG ORAL TABLET 1 tab by mouth twice daily 201 05/10/28 BACTRIM DS 800-160 MG ORAL TABLET 211707 TRIMETHOPRIM-SULFAMETHOXAZOLE Inactive AMOXICILLIN 500 MG ORAL CAPSULE 1 cap by mouth three times a day AMOXICILLIN 500 MG ORAL CAPSULE 845138 AMOXICILLIN Inactive ZITHROMAX 250 MG ORAL TABLET 2 po today, then 1 po q days 2-5 20 20/04/28 ZITHROMAX 250 MG ORAL TABLET 727342 AZITHROMYCIN Mayela ctive DIFLUCAN 100 MG ORAL [...] -- NO DECISION 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 DISCUSED WITH PATIENT -- FULL [...] Magnesium - Chemistry cholesterol, serum 196 mg/dL 738-467 1172/07/30 triglyceride, serum, fasting 86 mg/dL 30-200 HDL cholesterol, serum 41 mg/dL 32-60 LDL cholesterol, serum 138 mg/dL 0-130 sodium, serum 140 mmol/L 519-143 4450/07/30 carbon dioxide, venous blood 28.6 mmol/L 21.0-32 [...] Negative mg/dL Negative sodium, serum 139 mmol/L 875-963 0005/11/07 carbon dioxide, venous blood 28.4 mmol/L 21.0-32 [...] ative Encounters Code Encounter Date Provider Facility CPT-66919 [id number] Vst-Est Level IV 14:08:03 C BRIDGET Sherman MD [facility] CPT-51299 Level 3 Est. Patient 18:06:36 CDT Tesfaye pearson MD [facility] [id number] [id number] Vst-Est Level IV 17:09:34 C BRIDGET Sherman MD [facility] CPT-08122 Level 3 Est. Patient 17:27:08 CDT León Bandar hernandez APRN [facility] [id number] [id number] Vst-Est Level IV 14:00:[address] Tesfaye Sherman MD [facility] CPT-22258 [id number] Vst-Est Level IV 19:27:[address] Tesfaye Sherman MD [facility] CPT-69498 [id number] Vst-Est Level IV 10:41:41 C BRIDGET Sherman MD [facility] [place]-12259 [id number] Vst-Est Level III 09:40:56 CDT Tesfaye Sherman MD [facility] CPT-81967 Level 4 Est. Patient 22:18:12 CDT Tesfaye pearson MD [facility] CPT-05627 Level 4 Est. Patient 14:44:33 HEALTH PSYCHOLOGIST Tesfaye pearson MD [facility] CPT-64277 Level 4 Est. Patient 13:55:29 HEALTH PSYCHOLOGIST Tesfaye pearson MD [facility] CPT-92949 Level 4 Est. Patient 17:07:34 HEALTH PSYCHOLOGIST Tesfaye pearson MD [facility] CPT-89844 Level 4 Est. Patient 13:56:54 CDT Tesfaye pearson MD [facility] CPT-87874 Level 4 Est. Patient 13:24:25 CDT Chelsea sanz APRN [facility] CPT-92048 Level 4 Est. Patient 09:14:56 CDT Tesfaye pearson MD [facility] [place]-86217 Level 4 Est. Patient 18:40:25 HEALTH PSYCHOLOGIST Tesfaye pearson MD [facility] CPT-80396 Level 4 Est. Patient 18:13:07 HEALTH PSYCHOLOGIST Tesfaye pearson MD [facility] CPT-36406 Level 3 Est. Patient 10:46:32 CDT Rj cotto DO [facility] CPT-81742 Level 4 Est. Patient 20:19:25 CDT Tesfaye pearson MD [facility] CPT-80559 Level 3 Est. Patient 09:07:31 CDT Tesfaye pearson MD [facility] [place]-11278 Level 4 Est. Patient 13:12:56 CDT Tesfaye pearson MD [facility] [place]-87214 Level 4 Est. Patient 21:24:55 HEALTH PSYCHOLOGIST Tesfaye pearson MD [facility] CPT-82451 Level 3 Est. Patient 13:45:04 HEALTH PSYCHOLOGIST Tesfaye pearson MD [facility] CPT-24119 Level 4 Est. Patient 13:50:45 CDT Tesfaye pearson MD [facility] CPT-10826 Level 3 Est. Patient 10:16:10 CDT Tesfaye pearson MD [facility] CPT-57724 Level 3 Est. Patient 16:36:07 HEALTH PSYCHOLOGIST Kayla jameson MD [facility] [place]-11588 Level 4 Est. Patient 16:00:14 HEALTH PSYCHOLOGIST Tesfaye pearson MD [facility] CPT-77679 Level 4 Est. Patient 11:02:24 HEALTH PSYCHOLOGIST Tesfaye pearson MD [facility] CPT-73298 Level 3 Est. Patient 20:21:43 HEALTH PSYCHOLOGIST Kayla jameson MD [facility] CPT-20938 Level 3 Est. Patient 13:27:28 HEALTH PSYCHOLOGIST Kayla jameson MD [facility] CPT-26416 Level 4 Est. Patient 15:57:17 HEALTH PSYCHOLOGIST Tesfaye pearson MD [facility] CPT-88568 Level 3 New Patient 13:25:47 CDT Tesfaye kidd MD [facility] CPT-53043 Level 3 New Patient 17:22:[address] [facility] Procedures Code Procedure Name Date Entry Date Standard Desc ription CPT-98328 Bone Density - XRAY USE ONLY 15:21:33 CDT 2 CPT-42583 Venipuncture Draw Fee 16:12:22 CDT CPT-G0439 Subsequent Annual Wellness Exam 18:06:36 CDT CPT-G0439 Subsequent Annual Wellness Exam 22:18:11 CDT CPT-20506 Bone Density - XRAY USE ONLY 11:43:58 CDT 2 CPT-87940 Bone Density - XRAY USE ONLY 10:05:16 CDT 2 CPT-48771 Prv Med New Pt 40-64 yrs 18:19:25 CDT 2016 CPT-46449 Foot, right, comp min 3V - XRAY USE ONLY 10:38:34 CDT CPT-G0439 Subsequent Annual Wellness Exam 13:55:04 CDT CPT-G0438 Initial Annual Wellness Exam 11:23:17 CD T CPT-J2930 Solu Medrol 125 mg (Methyl Prednisolone Sodium Succinate) 17:29:12 HEALTH PSYCHOLOGIST CPT-87190 Abx/Therapy Injection 17:29:11 HEALTH PSYCHOLOGIST CPT-J2930 Solu Medrol 125 mg (Methyl Prednisolone Sodium Succinate) 12:34:38 HEALTH PSYCHOLOGIST CPT-J3420 Vitamin B12 1000mcg (Cyanocobalamin) 09:12:55 CDT CPT-J3420 Vitamin B12 1000mcg (Cyanocobalamin) 16:28:06 HEALTH PSYCHOLOGIST CPT-40076 Venipuncture Draw Fee 08:39:53 CDT CPT-J3420 Vitamin B12 1000mcg (Cyanocobalamin) 08:46:22 CDT CPT-14477 Abx/Therapy Injection 08:46:22 CDT CPT-J3420 Vitamin B12 1000mcg (Cyanocobalamin) 08:41:26 CDT CPT-51810 Abx/Therapy Injection 08:41:26 CDT CPT-J3420 Vitamin B12 1000mcg (Cyanocobalamin) 08:57:15 CDT CPT-38441 Abx/Therapy Injection 08:57:15 CDT CPT-J3420 Vitamin B12 1000mcg (Cyanocobalamin) 10:59:03 CDT CPT-39937 Abx/Therapy Injection 10:59:03 CDT CPT-J3420 Vitamin B12 1000mcg (Cyanocobalamin) 15:05:39 CDT CPT-53643 Abx/Therapy Injection 15:05:39 CDT CPT-J3420 Vitamin B12 1000mcg (Cyanocobalamin) 13:50:45 CDT CPT-J3420 Vitamin B12 1000mcg (Cyanocobalamin) 08:48:55 CDT CPT-87731 Abx/Therapy Injection 08:48:55 CDT CPT-J3420 Vitamin B12 1000mcg (Cyanocobalamin) 09:14:54 CDT CPT-40218 Abx/Therapy Injection 09:14:54 CDT CPT-J3420 Vitamin B12 1000mcg (Cyanocobalamin) 09:06:06 CDT CPT-66069 Abx/Therapy Injection 09:06:06 CDT CPT-J3420 Vitamin B12 1000mcg (Cyanocobalamin) 09:49:14 CDT CPT-31282 Abx/Therapy Injection 09:49:14 CDT CPT-J3420 Vitamin B12 1000mcg (Cyanocobalamin) 09:10:30 HEALTH PSYCHOLOGIST CPT-99956 Abx/Therapy Injection 09:10:30 HEALTH PSYCHOLOGIST CPT-J3420 Vitamin B12 1000mcg (Cyanocobalamin) 09:11:07 HEALTH PSYCHOLOGIST CPT-29290 Abx/Therapy Injection 09:11:07 HEALTH PSYCHOLOGIST CPT-J3420 Vitamin B12 1000mcg (Cyanocobalamin) 09:57:03 HEALTH PSYCHOLOGIST CPT-86561 Abx/Therapy Injection 09:57:03 HEALTH PSYCHOLOGIST CPT-J3420 Vitamin B12 1000mcg (Cyanocobalamin) 09:23:21 HEALTH PSYCHOLOGIST CPT-93591 Abx/Therapy Injection 09:23:21 HEALTH PSYCHOLOGIST CPT-62601 Urine Dip (Floor Use Only) 20:21:44 HEALTH PSYCHOLOGIST 201 02/12/11 CPT-81959 UA Dip Auto (Floor Use Only) 10:04:39 HEALTH PSYCHOLOGIST 2 CPT-31739 Urine Dip (Floor Use Only) 13:27:28 HEALTH PSYCHOLOGIST 201 02/12/01 CPT-79347 Bladder Scan 13:27:28 HEALTH PSYCHOLOGIST CPT-63412 Abd single AP View 14:30:51 HEALTH PSYCHOLOGIST CPT-OV Office Visit 10:15:43 CDT CPT-26935 Urine Dip (Floor Use Only) 17:22:21 CDT 201 02/09/02 CPT-02647 Bladder Scan 17:22:21 CDT
--- OUTSIDE RECORDS SUMMARY | 2020-05-05 11:13 | XMS REPORT | Clinical Summary ---
Author Author Talon, Jeri Wood Organization [employer] Address Unknown Phone Unavailable Allergies, Adverse Reactions, Alerts Allergy Name Reaction Description Start Date Severity Status Pr ovider FOSAMAX Critical Active Tefsaye armenta MD PRAMIPEXOLE Critical Active Tesfaye villar [...] Routine general medical examination at [facility] Sinusitis 461.9 Resolved Tesfaye Sherman MD [...] general medical examination at a [facility] Body Mass Index 21.0-21.9 Adult Refinement [...] bilateral 782.3 Active 201 07/07/09 León Kodi [employer] Edema Peripheral neuropathy 356.9 Active Tesfaye lamb [...] Instructions Start Date Stop Date Generic Name ND Status Provider Patient Instruction MIRAPEX 0.25 MG ORAL TABLET 1 tablet by mouth at night for r estless leg PRAMIPEXOLE DIHYDROCHLORIDE [id number] Active Laurence Ra duyen Active MIRAPEX 0.125 MG ORAL TABLET 1 po nightly PRAMIPEXOLE DIHYDROCHLORIDE 34634643534 No Longer Active Laurence Raida Active ROPINIROLE HCL 2 MG ORAL TABLET 1 po at hs ROPI NIROLE HCL 40517939065 No Longer Active Laurence Raida Active ROPINIROLE HCL 1 MG ORAL TABLET 1 tab po q hs ROPINIROLE HCL 68852209676 No Longer Active Laurence Raida Active ROPINIROLE HCL 0.5 MG ORAL TABLET 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 ROPINIROLE HCL 07184614015 No Longer Active MARCUS Panchal Active ROPINIROLE HCL 0.25 MG ORAL TABLET 1 TAB PO Q HS 05/31 ROPINIROLE HCL 22610740780 No Longer Active Tesfaye Sherman MD Ac tive PREDNISONE 20 MG ORAL TABLET 1 tab twice daily for 3 d ay, then one daily for three days PREDNISONE 11938429698 No Longer Active Tesfaye Sherman MD Active AMITRIPTYLINE HCL 50 MG ORAL TABLET 1 po q hs for sleep AMITRIPTYLINE HCL 60455231038 No Longer Active Tesfaye Sherman MD Active AMITRIPTYLINE HCL 10 MG ORAL TABLET 1 tablet nightly by mout h for neuropathy AMITRIPTYLINE HCL 74399854465 No Longer Active MARCUS Stapleton Active DIFLUCAN 100 MG ORAL TABLET 1 tablet by mouth daily 05/11 FLUCONAZOLE 05775954332 No Longer Active Tesfaye Sherman MD Acti ve BACTRIM DS 800-160 MG ORAL TABLET 1 tab by mouth twice daily 201 07/08/06 TRIMETHOPRIM-SULFAMETHOXAZOLE 98304280483 No Longer Active D patricia Sherman MD Active CLARITIN 10 MG ORAL TABLET Take one by mouth daily LORATADINE 00264477843 Active Tesfaye Sherman MD Active SUDAFED 12 HOUR 120 MG ORAL TABLET EXTENDED RELEASE 12 HOUR 1 pill twice daily if needed for congestion PSEUDOEPHEDRINE HCL 976122569 13 No Longer Active Tesfaye Sherman MD Active FENOFIBRATE 145 MG ORAL TABLET 1 by mouth daily FENOFIBRATE 57348360062 Active Laurence Dominguez Active GABAPENTIN 300 MG ORAL CAPSULE 1 po daily GABAP ENTIN 35251518133 No Longer Active Tesfaye Sherman MD Active HYDROCHLOROTHIAZIDE 12.5 MG ORAL CAPSULE 1 pill by mough daily 2 HYDROCHLOROTHIAZIDE 67698591455 No Longer Active León Mariee APRN Active VENLAFAXINE HCL 75 MG ORAL TABLET 1 am 1/2 at noon 201 07/07/09 VENLAFAXINE HCL 58998835254 No Longer Active León Mariee APRN Act trent DIFLUCAN 100 MG ORAL TABLET 1 tablet by mouth daily 20 19/02/09 FLUCONAZOLE 29252205886 No Longer Active León Kodi DUMASN Active DIFLUCAN 100 MG ORAL TABLET 1 tablet by mouth daily 20 19/02/09 FLUCONAZOLE 57427621303 No Longer Active León Mariee APRN Active OXYCODONE-ACETAMINOPHEN 5-325 MG ORAL TABLET Take one tablet by mouth every 6 hours 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 Use sparingly OXYCODONE-ACETAMINOPHEN 41885301007 Active Tesfaye villar MD Active CLONAZEPAM 0.5 MG ORAL TABLET Take 1/2 qam, and 1/2 qpm CLONAZEPAM 98155865362 Active Tesfaye Sherman MD Active PRELIEF 340 (65-50) MG (CA-P) ORAL TABLET CALCIUM GLYCEROPHOSPHATE 68802798445 No Longer Active Tesfaye Sherman MD Active SUDAFED 24 HOUR 240 MG ORAL TABLET EXTENDED RELEASE 24 HOUR 1 tab po daily PSEUDOEPHEDRINE HCL 77824044752 No Longer Active Raul Sherman MD Active RED YEAST RICE 600 MG ORAL CAPSULE 1 pill by mouth daily RED YEAST RICE EXTRACT 55196361372 No Longer Active Tesfaye Sherman MD Active REPHRESH PRO-B ORAL CAPSULE 1 tablet daily LACT OBACILLUS 70705038128 No Longer Active Tesfaye Sherman MD Active ABILIFY 2 MG ORAL TABLET 1 by mouth daily. MARIA ELENA PIPRAZOLE 09611095062 Active Tesfaye Sherman MD Active CYMBALTA 60 MG ORAL CAPSULE DELAYED RELEASE PARTICLES 1 cap by mouth daily for pain DULOXETINE HCL 37061163120 Active MARCUS Lindsay Active DIFLUCAN 100 MG ORAL TABLET 1 tablet by mouth daily 20 20/06/06 FLUCONAZOLE 79000412241 No Longer Active Tesfaye Sherman MD Acti ve PREDNISONE 20 MG ORAL TABLET 1 tablet by mouth twice d aily for 3 days, then 1 tablet daily for 3 days PREDNISONE 24714208298 No L onger Active Tesfaye Sherman MD Active BACTRIM DS 800-160 MG ORAL TABLET 1 tab by mouth twice daily 201 06/09/02 TRIMETHOPRIM-SULFAMETHOXAZOLE 22748924636 No Longer Active Fer Dominguez Active DIFLUCAN 100 MG ORAL TABLET 1 tablet by mouth daily 20 20/05/01 FLUCONAZOLE 71388016883 No Longer Active Tesfaye Sherman MD Acti ve ZITHROMAX 250 MG ORAL TABLET 2 po today, then 1 po q days 2-5 20 20/04/28 AZITHROMYCIN 62038097026 No Longer Active Tesfaye Sherman MD Active MECLIZINE HCL 25 MG ORAL TABLET one tab po qday prn dizziness 20 17/09/06 MECLIZINE HCL 92262762860 No Longer Active Tesfaye Sherman MD Active PROAIR HFA 108 (90 BASE) MCG/ACT INHALATION AEROSOL SO LUTION 1 puff every 6 hours as needed ALBUTEROL SULFATE 29304550359 No Long er Active Tesfaye Sherman MD Active PREDNISONE 20 MG ORAL TABLET 1 tab twice daily for 3 d ay, then one daily for three days PREDNISONE 38297946272 No Longer Active Tesfaye Sherman MD Active MECLIZINE HCL 25 MG ORAL TABLET one 4 times a day as needed for dizziness MECLIZINE HCL 01010359189 Active Tesfaye Sherman MD Active AMOXICILLIN 500 MG ORAL CAPSULE 1 cap by mouth three times a day AMOXICILLIN 46100202827 No Longer Active Laurence Dominguez Acti ve DIFLUCAN 100 MG ORAL TABLET 1 tablet by mouth daily 20 19/08/26 FLUCONAZOLE 68833444271 No Longer Active Tesfaye Sherman MD Acti ve BACTRIM DS 800-160 MG ORAL TABLET 1 tab by mouth twice daily 201 05/10/28 TRIMETHOPRIM-SULFAMETHOXAZOLE 22365887558 No Longer Active Fer Dominguez Active FOSAMAX 70 MG ORAL TABLET 1 po qweek. Take 30min prio r to first food/drink. Avoid lying down x 1 hour. ALENDRONATE SODIUM 81810498 144 No Longer Active Laurenceyohana Dominguez Active CYMBALTA 60 MG ORAL CAPSULE DELAYED RELEASE PARTICLES Take 1 tablet by mouth daily DULOXETINE HCL 90682479960 No Longer Active Edith Burch MD Active CYMBALTA 30 MG ORAL CAPSULE DELAYED RELEASE PARTICLES 1 cap by mouth daily with 60mg DULOXETINE HCL 52373496826 No Longer Active Jordan Burch MD Active FISH OIL 1000 MG ORAL CAPSULE DELAYED RELEASE 1 pill b y mouth daily for cholesterol OMEGA-3 FATTY ACIDS 05634372522 Active Cee Jaffe LPN Active DIFLUCAN 100 MG ORAL TABLET 1 tablet by mouth daily 19/03/05 FLUCONAZOLE 33413170327 No Longer Active Tesfaye Sherman MD Acti ve BACTRIM DS 800-160 MG ORAL TABLET 1 tab by mouth twice daily 201 05/06/28 TRIMETHOPRIM-SULFAMETHOXAZOLE 77747511963 No Longer Active Umer Sherman MD Active BACTRIM DS 800-160 MG ORAL TABLET 1 tab by mouth twice daily 201 05/04/15 TRIMETHOPRIM-SULFAMETHOXAZOLE 04062381659 No Longer Active Umer Sherman MD Active DIFLUCAN 150 MG ORAL TABLET 1 tablet by mouth daily 20 18/09/20 FLUCONAZOLE 63580266545 No Longer Active Tesfaye Sherman MD Acti ve BACTRIM DS 800-160 MG ORAL TABLET 1 tab by mouth twice daily 201 04/13/17 TRIMETHOPRIM-SULFAMETHOXAZOLE 99233944344 No Longer Active Umer Sherman MD Active CEFTIN 250 MG ORAL TABLET 1 tablet twice daily x 7 days CEFUROXIME AXETIL 97784502434 No Longer Active Tesfaye Sherman MD Active DIFLUCAN 100 MG ORAL TABLET 1 tablet by mouth every other da y for 2 doses FLUCONAZOLE 91689928465 No Longer Active Tesfaye barron MD Active DIFLUCAN 100 MG ORAL TABLET 1 tablet by mouth daily X 3 DAYS 201 04/09/01 FLUCONAZOLE 16016427336 No Longer Active Rj Ravi MIRTAZAPINE 15 MG ORAL TABLET 1/2 tab by mouth at bedtime. 03/13 MIRTAZAPINE 59294527612 No Longer Active Tesfaye Sherman MD Active BACTRIM DS 800-160 MG ORAL TABLET 1 tab by mouth twice daily 201 04/09/01 TRIMETHOPRIM-SULFAMETHOXAZOLE 57296301171 No Longer Active Umer Sherman MD Active PRAMIPEXOLE DIHYDROCHLORIDE 0.125 MG ORAL TABLET take 1 tablet po qhs for restless leg syndrome. PRAMIPEXOLE DIHYDROCHLORI DE 35465761887 No Longer Active Tesfaye Sherman MD Active MAGNESIUM 400 MG ORAL TABLET 1 tab po daily FELIX FAGAN 62967908504 Active Chelsea Cardenas APRN Active CETIRIZINE HCL 5 MG ORAL TABLET Take 1 tablet by mouth daily CETIRIZINE HCL 58787824587 No Longer Active Chelsea Cardenas APRN Activ e TRIMETHOPRIM 100 MG ORAL TABLET 1/2 qd TRIM ETHOPRIM 52751599540 No Longer Active Chelsea Cardenas APRN Active BACTRIM DS 800-160 MG ORAL TABLET 1 tab by mouth twice daily 201 04/04/11 TRIMETHOPRIM-SULFAMETHOXAZOLE 83763813336 No Longer Active Umer Sherman MD Active BACTRIM DS 800-160 MG ORAL TABLET 1 tab by mouth twice daily X 10 DAYS TRIMETHOPRIM-SULFAMETHOXAZOLE 83814281312 No Longer Active Tesfaye Sherman MD Active AMOXICILLIN 500 MG ORAL CAPSULE 1 cap by mouth three times a day AMOXICILLIN 41851367444 No Longer Active Adriana Arredondo, A A ctive B-12 1000 MCG ORAL LOZENGE 1 tab po daily CYANO COBALAMIN 55424191100 Active Tesfaye Sherman MD Active VITAMIN D3 2000 UNIT ORAL TABLET 1 daily, for vitamin D deficien cy CHOLECALCIFEROL 97119132376 No Longer Active Tesfaye Sherman MD Active TIZANIDINE HCL 2 MG ORAL TABLET take 1-2 tablet by mo [facility] [place] every day at bedtime at 9pm PRN TIZANIDINE HCL 86903473022 Active Tesfaye hewitt MD Active ZITHROMAX 250 MG ORAL TABLET 2 po today, then 1 po q days 2-5 20 15/02/10 AZITHROMYCIN 73334389818 No Longer Active Tesfaye Sherman MD Active BACTRIM DS 800-160 MG ORAL TABLET 1 tab by mouth twice daily 201 03/03/23 TRIMETHOPRIM-SULFAMETHOXAZOLE 75175187096 No Longer Active Umer Sherman MD Active [facility] NIACIN FLUSH FREE 400-100 MG ORAL CAPSULE 1 daily NIACIN-INOSITOL 95854600059 Active Kayla Cooper MD Activ e DIFLUCAN 150 MG ORAL TABLET 1 qd FLUCONAZOL E 16503325609 No Longer Active Kayla Cooper MD Active FLUTICASONE PROPIONATE 50 MCG/ACT NASAL SUSPENSION 1 spray each nostril twice daily FLUTICASONE PROPIONATE 70415567300 Active D patricia Sherman MD Active LOVASTATIN 20 MG ORAL TABLET Take 1 tablet by mouth daily LOVASTATIN 58278008869 No Longer Active Tesfaye Sherman MD Acti ve MELOXICAM 7.5 MG ORAL TABLET 1 tablet by mouth daily 2 MELOXICAM 64238600245 No Longer Active Tesfaye Sherman MD Acti ve GABAPENTIN 300 MG ORAL CAPSULE Take two tablets by mouth every e vening GABAPENTIN 20737683642 No Longer Active Edith Burch MD A ctive BACLOFEN 10 MG ORAL TABLET Take one tablet by mouth three times a d ay BACLOFEN 65430268011 Active Kayla Cooper MD Active GABAPENTIN 300 MG ORAL CAPSULE Take two tablets by mouth every e vening GABAPENTIN 300 MG ORAL CAPSULE 980852 GABAPENTIN I nactive MELOXICAM 7.5 MG ORAL TABLET 1 tablet by mouth daily 2 MELOXICAM 7.5 MG ORAL TABLET 747379 MELOXICAM Inactive LOVASTATIN 20 MG ORAL TABLET Take 1 tablet by mouth daily LOVASTATIN 20 MG ORAL TABLET 814249 LOVASTATIN Inactive DIFLUCAN 150 MG ORAL TABLET 1 qd DIFLUCAN 150 MG ORAL TABLET 901012 FLUCONAZOLE Inactive VITAMIN D3 2000 UNIT ORAL TABLET 1 daily, for vitamin D deficien cy VITAMIN D3 2000 UNIT ORAL TABLET CHOLECALCIFEROL Inactive AMOXICILLIN 500 MG ORAL CAPSULE 1 cap by mouth three times a day AMOXICILLIN 500 MG ORAL CAPSULE 480050 AMOXICILLIN Inactive BACTRIM DS 800-160 MG ORAL TABLET 1 tab by mouth twice daily X 10 DAYS BACTRIM DS 800-160 MG ORAL TABLET 828390 TRIMETHOPRIM-SULFAMETHOXAZOLE Inactive TRIMETHOPRIM 100 MG ORAL TABLET 1/2 qd 7 TRIMETHOPRIM 100 MG ORAL TABLET 182142 TRIMETHOPRIM Inactive CETIRIZINE HCL 5 MG ORAL TABLET Take 1 tablet by mouth daily CETIRIZINE HCL 5 MG ORAL TABLET 3693196 CETIRIZINE HCL Inactive PRAMIPEXOLE DIHYDROCHLORIDE 0.125 MG ORAL TABLET take 1 tablet po qhs for restless leg syndrome. PRAMIPEXOLE DIHYD ROCHLORIDE 0.125 MG ORAL TABLET 552481 PRAMIPEXOLE DIHYDROCHLORIDE Inactive MIRTAZAPINE 15 MG ORAL TABLET 1/2 tab by mouth at bedtime. 03/13 MIRTAZAPINE 15 MG ORAL TABLET 906541 MIRTAZAPINE In active DIFLUCAN 100 MG ORAL TABLET 1 tablet by mouth daily X 3 DAYS 201 04/09/01 DIFLUCAN 100 MG ORAL TABLET 429680 FLUCONAZOLE Inac tive DIFLUCAN 100 MG ORAL TABLET 1 tablet by mouth every other da y for 2 doses DIFLUCAN 100 MG ORAL TABLET 898562 FLUCONAZOLE Inactive CEFTIN 250 MG ORAL TABLET 1 tablet twice daily x 7 days CEFTIN 250 MG ORAL TABLET CEFUROXIME AXETIL Inactive CYMBALTA 30 MG ORAL CAPSULE DELAYED RELEASE PARTICLES 1 cap by mouth daily with 60mg CYMBALTA 30 MG ORAL CAPSULE DELAYED RELEASE PARTICLES 488494 DULOXETINE HCL Inactive CYMBALTA 60 MG ORAL CAPSULE DELAYED RELEASE PARTICLES Take 1 tablet by mouth daily CYMBALTA 60 MG ORAL CAPSULE DELAYED RELEA SE PARTICLES 718648 DULOXETINE HCL Inactive FOSAMAX 70 MG ORAL TABLET 1 po qweek. Take 30min prio r to first food/drink. Avoid lying down x 1 hour. FOSAMAX 70 MG ORAL TA BLET 150994 ALENDRONATE SODIUM Inactive DIFLUCAN 100 MG ORAL TABLET 1 tablet by mouth daily 19/08/26 DIFLUCAN 100 MG ORAL TABLET 984512 FLUCONAZOLE Inactive PREDNISONE 20 MG ORAL TABLET 1 tab twice daily for 3 d ay, then one daily for three days PREDNISONE 20 MG ORAL TABLET 124179 PREDNIS ONE Inactive PROAIR HFA 108 (90 BASE) MCG/ACT INHALATION AEROSOL SO LUTION 1 puff every 6 hours as needed PROAIR HFA 108 (90 B ASE) MCG/ACT INHALATION AEROSOL SOLUTION ALBUTEROL SULFATE Inactive MECLIZINE HCL 25 MG ORAL TABLET one tab po qday prn dizziness 20 17/09/06 MECLIZINE HCL 25 MG ORAL TABLET 801066 MECLIZINE HCL Inactive PREDNISONE 20 MG ORAL TABLET 1 tablet by mouth twice d aily for 3 days, then 1 tablet daily for 3 days PREDNISONE 20 MG ORAL TA BLET 704779 PREDNISONE Inactive DIFLUCAN 100 MG ORAL TABLET 1 tablet by mouth daily 20/06/06 DIFLUCAN 100 MG ORAL TABLET 914761 FLUCONAZOLE Inactive REPHRESH PRO-B ORAL CAPSULE 1 tablet daily REPHRESH PRO-B ORAL CAPSULE LACTOBACILLUS Inactive RED YEAST RICE 600 MG ORAL CAPSULE 1 pill by mouth daily RED YEAST RICE 600 MG ORAL CAPSULE 727609 RED YEAST RICE EXTRACT In active SUDAFED [...] 07/07/09 VENLAFAXINE HCL 75 MG ORAL TABLET 421474 VENLAFAXINE HCL Inacti ve GABAPENTIN 300 MG ORAL CAPSULE 1 po daily GABAPENTIN 300 MG ORAL CAPSULE 341593 GABAPENTIN Inactive SUDAFED 12 HOUR 120 MG ORAL TABLET EXTENDED RELEASE 12 HOUR 1 pill twice daily if needed for congestion SUDAFED 12 HOUR 120 MG ORAL TABLET EXTENDED RELEASE 12 HOUR PSEUDOEPHEDRINE HCL Inactive AMITRIPTYLINE HCL 10 MG ORAL TABLET 1 tablet nightly by mout h for neuropathy AMITRIPTYLINE HCL 10 MG ORAL TABLET 084672 AMITRIPTYLINE HCL Inactive AMITRIPTYLINE HCL 50 MG ORAL TABLET 1 po q hs for sleep AMITRIPTYLINE HCL 50 MG ORAL TABLET 790439 AMITRIPTYLINE HCL Inac tive PREDNISONE 20 MG ORAL TABLET 1 tab twice daily for 3 d ay, then one daily for three days PREDNISONE 20 MG ORAL TABLET 687346 PREDNIS ONE Inactive ROPINIROLE HCL 0.25 MG ORAL TABLET 1 TAB PO Q HS 05/31 ROPINIROLE HCL 0.25 MG ORAL TABLET 336249 ROPINIROLE HCL Inact trent ROPINIROLE HCL 0.5 MG ORAL TABLET 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 ROPINIROLE HCL 0.5 MG ORAL TABLET 932997 ROPINIR OLE HCL Inactive ROPINIROLE HCL 1 MG ORAL TABLET 1 tab po q hs ROPINIROLE HCL 1 MG ORAL TABLET 978346 ROPINIROLE HCL Inactive ROPINIROLE HCL 2 MG ORAL TABLET 1 po at hs 7 ROPINIROLE HCL 2 MG ORAL TABLET 860252 ROPINIROLE HCL Inactive MIRAPEX 0.125 MG ORAL TABLET 1 po nightly MIRAPEX 0.125 MG ORAL TABLET 650882 PRAMIPEXOLE DIHYDROCHLORIDE Inactive BACTRIM DS 800-160 MG ORAL TABLET 1 tab by mouth twice daily 201 03/03/23 BACTRIM DS 800-160 MG ORAL TABLET 163328 TRIMETHOPRIM-SULFAMETHOXAZOLE Inactive ZITHROMAX 250 MG ORAL TABLET 2 po today, then 1 po q days 2-5 20 15/02/10 ZITHROMAX 250 MG ORAL TABLET 589479 AZITHROMYCIN Lucas ctive BACTRIM DS 800-160 MG ORAL TABLET [...] a day AMOXICILLIN 500 MG ORAL CAPSULE 177916 AMOXICILLIN Inactive ZITHROMAX 250 MG ORAL TABLET 2 po today, then 1 po q days 2-5 20 20/04/28 ZITHROMAX 250 MG ORAL TABLET 348372 AZITHROMYCIN Lucas ctive DIFLUCAN 100 MG ORAL TABLET 1 [...] 07/08/06 BACTRIM DS 800-160 MG ORAL TABLET 282313 TRIMETHOPRIM-SULFAMETHOXAZOLE Inactive DIFLUCAN 100 MG ORAL TABLET 1 tablet by mouth daily 20 21/03/11 DIFLUCAN 100 MG ORAL TABLET 19760711 FLUCONAZOLE Inactive Advance Directives Directive Description Start Date PERMISSION TO SHARE DISCUSSED WITH PATIENT -- NO DECISION MADE DURABLE POWER OF PAPERHANGER FOR HEALTHCARE DISCUSED WITH PATIENT -- FULL [...] Magnesium - Chemistry cholesterol, serum 196 mg/dL 249-329 1960[birth year]07/30 triglyceride, serum, fasting 86 mg/dL 30-200 HDL cholesterol, serum 41 mg/dL 32-60 LDL cholesterol, serum 138 mg/dL 0-130 sodium, serum 140 mmol/L 814-025 3868/07/30 carbon dioxide, venous blood 28.6 mmol/L 21.0-32 [...] Negative mg/dL Negative sodium, serum 139 mmol/L 479-678 3208/11/07 carbon dioxide, venous blood 28.4 mmol/L 21.0-32 .0 potassium, serum 3.9 mmol/L 3.5-5.2 chloride, serum 101 mmol/L 98-107 blood glucose 99 mg/dL 65-95 urea nitrogen, blood 13 mg/dL 7-18 creatinine, serum 0.65 mg/dL 0.60-1.30 Estimated Glomerular Filtration Rate (calc) 100 (?) mL/min/1.73m2 = OR > 60 mL/min alanine aminotransferase (SGPT), serum 21 U/L -78 aspartate aminotransferase (SGOT), serum 16 U/L 15-37 [...] ative Encounters Code Encounter Date Provider Facility CPT-20055 [id number] Vst-Est Level IV 14:08:03 C BRIDGET Sherman MD [facility] CPT-29504 Level 3 Est. Patient 18:06:36 CDT Tesfaye pearson MD [facility] CPT-11803 [id number] Vst-Est Level IV 17:09:34 C BRIDGET Sherman MD [facility] CPT-19849 Level 3 Est. Patient 17:27:08 CDT León Portillo david [facility] CPT-08668 [id number] Vst-Est Level IV 14:00:[address] Tesfaye Sherman MD [facility] CPT-29207 [id number] Vst-Est Level IV 19:27:[address] Tesfaye Sherman MD [facility] CPT-99023 [id number] Vst-Est Level IV 10:41:41 C BRIDGET Sherman MD [facility] CPT-44671 [id number] Vst-Est Level III 09:40:56 CDT Tesfaye Sherman MD [facility] CPT-24107 Level 4 Est. Patient 22:18:12 CDT Tesfaye pearson MD [facility] CPT-73922 Level 4 Est. Patient 14:44:33 [employer] Tesfaye pearson MD [facility] CPT-47210 Level 4 Est. Patient 13:55:29 [employer] Tesfaye pearson MD [facility] CPT-18966 Level 4 Est. Patient 17:07:34 [employer] Tesfaye pearson MD [facility] CPT-54622 Level 4 Est. Patient 13:56:54 CDT Tesfaye pearson MD [facility] CPT-49458 Level 4 Est. Patient 13:24:25 CDT Chelsea sanz [facility] CPT-22431 Level 4 Est. Patient 09:14:56 CDT Tesfaye pearson MD [facility] CPT-74960 Level 4 Est. Patient 18:40:25 [employer] Tesfaye pearson MD [facility] CPT-06738 Level 4 Est. Patient 18:13:07 [employer] Tesfaye pearson MD [facility] [place]-67756 Level 3 Est. Patient 10:46:32 CDT Rj cotto DO [facility] [place]-86095 Level 4 Est. Patient 20:19:25 CDT Tesfaye pearson MD [facility] [place]-82209 Level 3 Est. Patient 09:07:31 CDT Tesfaye pearson MD [facility] [place]-06380 Level 4 Est. Patient 13:12:56 CDT Tesfaye pearson MD [facility] [place]-50496 Level 4 Est. Patient 21:24:55 [employer] Tesfaye pearson MD [facility] [place]-79042 Level 3 Est. Patient 13:45:04 [employer] Tesfaye pearson MD [facility] CPT-56258 Level 4 Est. Patient 13:50:45 CDT Tesfaye pearson MD [facility] CPT-10243 Level 3 Est. Patient 10:16:10 CDT Tesfaye pearson MD [facility] CPT-69666 Level 3 Est. Patient 16:36:07 [employer] Kayla jameson MD [facility] [place]-20044 Level 4 Est. Patient 16:00:14 [employer] Tesfaye pearson MD [facility] [place]-82452 Level 4 Est. Patient 11:02:24 [employer] Tesfaye pearson MD [facility] [place]-50195 Level 3 Est. Patient 20:21:43 [employer] Kayla jameson MD [facility] [place]-09746 Level 3 Est. Patient 13:27:28 [employer] Kayla jameson MD [facility] [place]-96245 Level 4 Est. Patient 15:57:17 [employer] Tesfaye pearson MD [facility] CPT-34715 Level 3 New Patient 13:25:47 CDT Tesfaye kidd MD [facility] CPT-69348 Level 3 New Patient 17:22:21 CDT Kayla angel MD [facility] Procedures Code Procedure Name Date Entry Date Standard Desc ription CPT-25504 Bone Density - XRAY USE ONLY 15:21:33 CDT 2 CPT-79436 Venipuncture Draw Fee 16:12:22 CDT CPT-G0439 Subsequent Annual Wellness Exam 18:06:36 CDT CPT-G0439 Subsequent Annual Wellness Exam 22:18:11 CDT CPT-02932 Bone Density - XRAY USE ONLY 11:43:58 CDT 2 CPT-78475 Bone Density - XRAY USE ONLY 10:05:16 CDT 2 CPT-35939 Prv Med New Pt 40-64 yrs 18:19:25 CDT 2016 CPT-18701 Foot, right, comp min 3V - XRAY USE ONLY 10:38:34 CDT CPT-G0439 Subsequent Annual Wellness Exam 13:55:04 CDT CPT-G0438 Initial Annual Wellness Exam 11:23:17 CD T CPT-J2930 Solu Medrol 125 mg (Methyl Prednisolone Sodium Succinate) 17:29:12 [employer] CPT-52856 Abx/Therapy Injection 17:29:11 [employer] CPT-J2930 Solu Medrol 125 mg (Methyl Prednisolone Sodium Succinate) 12:34:38 [employer] CPT-J3420 Vitamin B12 1000mcg (Cyanocobalamin) 09:12:55 CDT CPT-J3420 Vitamin B12 1000mcg (Cyanocobalamin) 16:28:06 [employer] CPT-03515 Venipuncture Draw Fee 08:39:53 CDT CPT-J3420 Vitamin B12 1000mcg (Cyanocobalamin) 08:46:22 CDT CPT-01591 Abx/Therapy Injection 08:46:22 CDT CPT-J3420 Vitamin B12 1000mcg (Cyanocobalamin) 08:41:26 CDT CPT-05528 Abx/Therapy Injection 08:41:26 CDT CPT-J3420 Vitamin B12 1000mcg (Cyanocobalamin) 08:57:15 CDT CPT-94810 Abx/Therapy Injection 08:57:15 CDT CPT-J3420 Vitamin B12 1000mcg (Cyanocobalamin) 10:59:03 CDT CPT-46302 Abx/Therapy Injection 10:59:03 CDT CPT-J3420 Vitamin B12 1000mcg (Cyanocobalamin) 15:05:39 CDT CPT-62675 Abx/Therapy Injection 15:05:39 CDT CPT-J3420 Vitamin B12 1000mcg (Cyanocobalamin) 13:50:45 CDT CPT-J3420 Vitamin B12 1000mcg (Cyanocobalamin) 08:48:55 CDT CPT-69387 Abx/Therapy Injection 08:48:55 CDT CPT-J3420 Vitamin B12 1000mcg (Cyanocobalamin) 09:14:54 CDT CPT-99584 Abx/Therapy Injection 09:14:54 CDT CPT-J3420 Vitamin B12 1000mcg (Cyanocobalamin) 09:06:06 CDT CPT-60588 Abx/Therapy Injection 09:06:06 CDT CPT-J3420 Vitamin B12 1000mcg (Cyanocobalamin) 09:49:14 CDT CPT-49238 Abx/Therapy Injection 09:49:14 CDT CPT-J3420 Vitamin B12 1000mcg (Cyanocobalamin) 09:10:30 [employer] CPT-58262 Abx/Therapy Injection 09:10:30 [employer] CPT-J3420 Vitamin B12 1000mcg (Cyanocobalamin) 09:11:07 [employer] CPT-50572 Abx/Therapy Injection 09:11:07 [employer] CPT-J3420 Vitamin B12 1000mcg (Cyanocobalamin) 09:57:03 [employer] CPT-65677 Abx/Therapy Injection 09:57:03 [employer] CPT-J3420 Vitamin B12 1000mcg (Cyanocobalamin) 09:23:21 [employer] CPT-70731 Abx/Therapy Injection 09:23:21 [employer] CPT-77738 Urine Dip (Floor Use Only) 20:21:44 [employer] 201 02/12/11 CPT-32963 UA Dip Auto (Floor Use Only) 10:04:39 [employer] 2 CPT-48368 Urine Dip (Floor Use Only) 13:27:28 [employer] 201 02/12/01 CPT-86317 Bladder Scan 13:27:28 [employer] CPT-07951 Abd single AP View 14:30:51 [employer] CPT-OV Office Visit 10:15:43 CDT CPT-93797 Urine Dip (Floor Use Only) 17:22:21 CDT 201 02/09/02 CPT-30289 Bladder Scan 17:22:21 CDT
--- OUTSIDE RECORDS SUMMARY | 2020-05-05 11:13 | XMS REPORT | Clinical Summary ---
Author Author Talon, Jeri Wood Organization [employer] Address Unknown Phone Unavailable Allergies, Adverse Reactions, [...] Routine general medical examination at [facility] acility Sinusitis 461.9 Resolved Tesfaye Sherman [...] of tobacco use Dysuria 788.1 Resolved Tesfaye Sheramn MD Dysuria Depression, major, recurrent 296.30 Refinement [...] MD Routine general medical examination at a [facility] acility Body Mass Index 21.0-21.9 [...] Tesfaye Sherman MD Dysuria High risk meds correction use V58.6 Active Tesfaye Sherman MD Long-term (current) drug use Yeast infection 112.9 Inactive Tesfaye Sherman MD Candidiasis of unspecified site Upper respiratory infection 465.9 Inactive Tesfaye Sherman MD Acute upper respiratory infections of un specified site Lower extremity edema, bilateral 782.3 Active 201 07/07/09 León Kodi CONSULTING ANALYST Edema Peripheral neuropathy 356.9 Active Tesfaye lamb [...] night for r estless leg PRAMIPEXOLE DIHYDROCHLORIDE 38588432802 Active Laurence Ra duyen Active MIRAPEX 0.125 MG ORAL TABLET 1 po nightly PRAMIPEXOLE DIHYDROCHLORIDE 66976278659 No Longer Active Laurence Raida Active ROPINIROLE HCL 2 MG ORAL TABLET 1 po at hs ROPI NIROLE HCL 10927657651 No Longer Active Laurence Raida Active ROPINIROLE HCL 1 MG ORAL TABLET 1 tab po q hs ROPINIROLE HCL 17147970105 No Longer Active Laurence Raida Active ROPINIROLE HCL 0.5 MG ORAL TABLET 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 ROPINIROLE HCL 98726977654 No Longer Active MARCUS Panchal Active ROPINIROLE HCL 0.25 MG ORAL TABLET 1 TAB PO Q HS 05/31 ROPINIROLE HCL 46969220097 No Longer Active Tesfaye Sherman MD Ac tive PREDNISONE 20 MG ORAL TABLET 1 tab twice daily for 3 d ay, then one daily for three days PREDNISONE 30222680213 No Longer Active Tesfaye Sherman MD Active AMITRIPTYLINE HCL 50 MG ORAL TABLET 1 po q hs for sleep AMITRIPTYLINE HCL 31515084974 No Longer Active Tesfaye Sherman MD Active AMITRIPTYLINE HCL 10 MG ORAL TABLET 1 tablet nightly by mout h for neuropathy AMITRIPTYLINE HCL 53488210258 No Longer Active MARCUS Stapleton Active DIFLUCAN 100 MG ORAL TABLET 1 tablet by mouth daily 05/11 FLUCONAZOLE 54729070017 No Longer Active Tesfaye Sherman MD Acti ve BACTRIM DS 800-160 MG ORAL TABLET 1 tab by mouth twice daily 201 07/08/06 TRIMETHOPRIM-SULFAMETHOXAZOLE 89643700936 No Longer Active D patricia Sherman MD Active CLARITIN 10 MG ORAL TABLET Take one by mouth daily LORATADINE 46760829395 Active Tesfaye Sherman MD Active SUDAFED 12 HOUR 120 MG ORAL TABLET EXTENDED RELEASE 12 HOUR 1 pill twice daily if needed for congestion PSEUDOEPHEDRINE HCL 438342930 13 No Longer Active Tesfaye Sherman MD Active FENOFIBRATE 145 MG ORAL TABLET 1 by mouth daily FENOFIBRATE 30431292513 Active Laurence Dominguez Active GABAPENTIN 300 MG ORAL CAPSULE 1 po daily GABAP ENTIN 76018485672 No Longer Active Tesfaye Sherman MD Active HYDROCHLOROTHIAZIDE 12.5 MG ORAL CAPSULE 1 pill by mough daily 2 HYDROCHLOROTHIAZIDE 46099444042 No Longer Active León Mariee APRN Active VENLAFAXINE HCL 75 MG ORAL TABLET 1 am 1/2 at noon 201 07/07/09 VENLAFAXINE HCL 15058470264 No Longer Active León Mariee APRN Act trent DIFLUCAN 100 MG ORAL TABLET 1 tablet by mouth daily 20 19/02/09 FLUCONAZOLE 94426676332 No Longer Active León Kodi DUMASN Active DIFLUCAN 100 MG ORAL TABLET 1 tablet by mouth daily 20 19/02/09 FLUCONAZOLE 61841191366 No Longer Active León Mariee APRN Active OXYCODONE-ACETAMINOPHEN 5-325 MG ORAL TABLET Take one tablet by mouth every 6 hours 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 Use sparingly OXYCODONE-ACETAMINOPHEN 95136181225 Active Tesfaye villar MD Active CLONAZEPAM 0.5 MG ORAL TABLET Take 1/2 qam, and 1/2 qpm CLONAZEPAM 53983668781 Active Tesfaye Sherman MD Active PRELIEF 340 (65-50) MG (CA-P) ORAL TABLET CALCIUM GLYCEROPHOSPHATE 18936968291 No Longer Active Tesfaye Sherman MD Active SUDAFED 24 HOUR 240 MG ORAL TABLET EXTENDED RELEASE 24 HOUR 1 tab po daily PSEUDOEPHEDRINE HCL 49264729974 No Longer Active Raul Sherman MD Active RED YEAST RICE 600 MG ORAL CAPSULE 1 pill by mouth daily RED YEAST RICE EXTRACT 83344260010 No Longer Active Tesfaye Sherman MD Active REPHRESH PRO-B ORAL CAPSULE 1 tablet daily LACT OBACILLUS 53736863129 No Longer Active Tesfaye Sherman MD Active ABILIFY 2 MG ORAL TABLET 1 by mouth daily. MARIA ELENA PIPRAZOLE 40297820509 Active Tesfaye Sherman MD Active CYMBALTA 60 MG ORAL CAPSULE DELAYED RELEASE PARTICLES 1 cap by mouth daily for pain DULOXETINE HCL 53215504445 Active MARCUS Lindsay Active DIFLUCAN 100 MG ORAL TABLET 1 tablet by mouth daily 20 20/06/06 FLUCONAZOLE 97368144453 No Longer Active Tesfaye Sherman MD Acti ve PREDNISONE 20 MG ORAL TABLET 1 tablet by mouth twice d aily for 3 days, then 1 tablet daily for 3 days PREDNISONE 10666447759 No L onger Active Tesfaye Sherman MD Active BACTRIM DS 800-160 MG ORAL TABLET 1 tab by mouth twice daily 201 06/09/02 TRIMETHOPRIM-SULFAMETHOXAZOLE 03626284262 No Longer Active Fer Dominguez Active DIFLUCAN 100 MG ORAL TABLET 1 tablet by mouth daily 20 20/05/01 FLUCONAZOLE 68077232240 No Longer Active Tesfaye Sherman MD Acti ve ZITHROMAX 250 MG ORAL TABLET 2 po today, then 1 po q days 2-5 20 20/04/28 AZITHROMYCIN 57612617724 No Longer Active Tesfaye Sherman MD Active MECLIZINE HCL 25 MG ORAL TABLET one tab po qday prn dizziness 20 17/09/06 MECLIZINE HCL 26937301766 No Longer Active Tesfaye Sherman MD Active PROAIR HFA 108 (90 BASE) MCG/ACT INHALATION AEROSOL SO LUTION 1 puff every 6 hours as needed ALBUTEROL SULFATE 21704278708 No Long er Active Tesfaye Sherman MD Active PREDNISONE 20 MG ORAL TABLET 1 tab twice daily for 3 d ay, then one daily for three days PREDNISONE 32854884246 No Longer Active Tesfaye Sherman MD Active MECLIZINE HCL 25 MG ORAL TABLET one 4 times a day as needed for dizziness MECLIZINE HCL 21428555297 Active Tesfaye Sherman MD Active AMOXICILLIN 500 MG ORAL CAPSULE 1 cap by mouth three times a day AMOXICILLIN 44287226025 No Longer Active Laurence Dominguez Acti ve DIFLUCAN 100 MG ORAL TABLET 1 tablet by mouth daily 20 19/08/26 FLUCONAZOLE 12413697713 No Longer Active Tesfaye Sherman MD Acti ve BACTRIM DS 800-160 MG ORAL TABLET 1 tab by mouth twice daily 201 05/10/28 TRIMETHOPRIM-SULFAMETHOXAZOLE 21032420299 No Longer Active Fer Dominguez Active FOSAMAX 70 MG ORAL TABLET 1 po qweek. Take 30min prio r to first food/drink. Avoid lying down x 1 hour. ALENDRONATE SODIUM 13229519 144 No Longer Active Laurenceyohana Dominguez Active CYMBALTA 60 MG ORAL CAPSULE DELAYED RELEASE PARTICLES Take 1 tablet by mouth daily DULOXETINE HCL 11205290077 No Longer Active Edith Burch MD Active CYMBALTA 30 MG ORAL CAPSULE DELAYED RELEASE PARTICLES 1 cap by mouth daily with 60mg DULOXETINE HCL 23130945374 No Longer Active Jordan Burch MD Active FISH OIL 1000 MG ORAL CAPSULE DELAYED RELEASE 1 pill b y mouth daily for cholesterol OMEGA-3 FATTY ACIDS 68415808214 Active Cee Jaffe LPN Active DIFLUCAN 100 MG ORAL TABLET 1 tablet by mouth daily 19/03/05 FLUCONAZOLE 22186165962 No Longer Active Tesfaye Sherman MD Acti ve BACTRIM DS 800-160 MG ORAL TABLET 1 tab by mouth twice daily 201 05/06/28 TRIMETHOPRIM-SULFAMETHOXAZOLE 59713478784 No Longer Active Umer Sherman MD Active BACTRIM DS 800-160 MG ORAL TABLET 1 tab by mouth twice daily 201 05/04/15 TRIMETHOPRIM-SULFAMETHOXAZOLE 24400178289 No Longer Active Umer Sherman MD Active DIFLUCAN 150 MG ORAL TABLET 1 tablet by mouth daily 20 18/09/20 FLUCONAZOLE 83979449471 No Longer Active Tesfaye Sherman MD Acti ve BACTRIM DS 800-160 MG ORAL TABLET 1 tab by mouth twice daily 201 04/13/17 TRIMETHOPRIM-SULFAMETHOXAZOLE 28626840622 No Longer Active Umer Sherman MD Active CEFTIN 250 MG ORAL TABLET 1 tablet twice daily x 7 days CEFUROXIME AXETIL 03980084143 No Longer Active Tesfaye Sherman MD Active DIFLUCAN 100 MG ORAL TABLET 1 tablet by mouth every other da y for 2 doses FLUCONAZOLE 37628724794 No Longer Active Tesfaye barron MD Active DIFLUCAN 100 MG ORAL TABLET 1 tablet by mouth daily X 3 DAYS 201 04/09/01 FLUCONAZOLE 20023552854 No Longer Active Rj Ravi MIRTAZAPINE 15 MG ORAL TABLET 1/2 tab by mouth at bedtime. 03/13 MIRTAZAPINE 90203299723 No Longer Active Tesfaye Sherman MD Active BACTRIM DS 800-160 MG ORAL TABLET 1 tab by mouth twice daily 201 04/09/01 TRIMETHOPRIM-SULFAMETHOXAZOLE 46514440767 No Longer Active Umer Sherman MD Active PRAMIPEXOLE DIHYDROCHLORIDE 0.125 MG ORAL TABLET take 1 tablet po qhs for restless leg syndrome. PRAMIPEXOLE DIHYDROCHLORI DE 68706960634 No Longer Active Tesfaye Sherman MD Active MAGNESIUM 400 MG ORAL TABLET 1 tab po daily FELIX FAGAN 06025935863 Active Chelsea Cardenas APRN Active CETIRIZINE HCL 5 MG ORAL TABLET Take 1 tablet by mouth daily CETIRIZINE HCL 86859597969 No Longer Active Chelsea Cardenas APRN Activ e TRIMETHOPRIM 100 MG ORAL TABLET 1/2 qd TRIM ETHOPRIM 70719920572 No Longer Active Chelsea Cardenas APRN Active BACTRIM DS 800-160 MG ORAL TABLET 1 tab by mouth twice daily 201 04/04/11 TRIMETHOPRIM-SULFAMETHOXAZOLE 62503727757 No Longer Active Umer Sherman MD Active BACTRIM DS 800-160 MG ORAL TABLET 1 tab by mouth twice daily X 10 DAYS TRIMETHOPRIM-SULFAMETHOXAZOLE 40432057958 No Longer Active Tesfaye Sherman MD Active AMOXICILLIN 500 MG ORAL CAPSULE 1 cap by mouth three times a day AMOXICILLIN 33566197748 No Longer Active Adriana Arredondo, A A ctive B-12 1000 MCG ORAL LOZENGE 1 tab po daily CYANO COBALAMIN 01102369149 Active Tesfaye Sherman MD Active VITAMIN D3 2000 UNIT ORAL TABLET 1 daily, for vitamin D deficien cy CHOLECALCIFEROL 49205414603 No Longer Active Tesfaye Sherman MD Active TIZANIDINE HCL 2 MG ORAL TABLET take 1-2 tablet by mo [facility] every day at bedtime at 9pm PRN TIZANIDINE HCL 62441888927 Active Tesfaye hewitt MD Active ZITHROMAX 250 MG ORAL TABLET 2 po today, then 1 po q days 2-5 20 15/02/10 AZITHROMYCIN 81202196569 No Longer Active Tesfaye Sherman MD Active BACTRIM DS 800-160 MG ORAL TABLET 1 tab by mouth twice daily 201 03/03/23 TRIMETHOPRIM-SULFAMETHOXAZOLE 03133415155 No Longer Active Umer Sherman MD Active [facility] NIACIN FLUSH FREE 400-100 MG ORAL CAPSULE 1 daily NIACIN-INOSITOL 36407421219 Active Kayla Cooper MD Activ e DIFLUCAN 150 MG ORAL TABLET 1 qd FLUCONAZOL E 68979783301 No Longer Active Kayla Cooper MD Active FLUTICASONE PROPIONATE 50 MCG/ACT NASAL SUSPENSION 1 spray each nostril twice daily FLUTICASONE PROPIONATE 62649110341 Active D patricia Sherman MD Active LOVASTATIN 20 MG ORAL TABLET Take 1 tablet by mouth daily LOVASTATIN 22949718114 No Longer Active Tesfaye Sherman MD Acti ve MELOXICAM 7.5 MG ORAL TABLET 1 tablet by mouth daily 2 MELOXICAM 61103391736 No Longer Active Tesfaye Sherman MD Acti ve GABAPENTIN 300 MG ORAL CAPSULE Take two tablets by mouth every e vening GABAPENTIN 31579351855 No Longer Active Edith Burch MD A ctive BACLOFEN 10 MG ORAL TABLET Take one tablet by mouth three times a d ay BACLOFEN 43412205068 Active Kayla Cooper MD Active GABAPENTIN 300 MG ORAL CAPSULE Take two tablets by mouth every e vening GABAPENTIN 300 MG ORAL CAPSULE 879682 GABAPENTIN I nactive MELOXICAM 7.5 MG ORAL TABLET 1 tablet by mouth daily 2 MELOXICAM 7.5 MG ORAL TABLET 162396 MELOXICAM Inactive LOVASTATIN 20 MG ORAL TABLET Take 1 tablet by mouth daily LOVASTATIN 20 MG ORAL TABLET 406517 LOVASTATIN Inactive DIFLUCAN 150 MG ORAL TABLET 1 qd DIFLUCAN 150 MG ORAL TABLET 494877 FLUCONAZOLE Inactive VITAMIN D3 2000 UNIT ORAL TABLET 1 daily, for vitamin D deficien cy VITAMIN D3 2000 UNIT ORAL TABLET CHOLECALCIFEROL Inactive AMOXICILLIN 500 MG ORAL CAPSULE 1 cap by mouth three times a day AMOXICILLIN 500 MG ORAL CAPSULE 113689 AMOXICILLIN Inactive BACTRIM DS 800-160 MG ORAL TABLET 1 tab by mouth twice daily X 10 DAYS BACTRIM DS 800-160 MG ORAL TABLET 358650 TRIMETHOPRIM-SULFAMETHOXAZOLE Inactive TRIMETHOPRIM 100 MG ORAL TABLET 1/2 qd 7 TRIMETHOPRIM 100 MG ORAL TABLET 863957 TRIMETHOPRIM Inactive CETIRIZINE HCL 5 MG ORAL TABLET Take 1 tablet by mouth daily CETIRIZINE HCL 5 MG ORAL TABLET 2426891 CETIRIZINE HCL Inactive PRAMIPEXOLE DIHYDROCHLORIDE 0.125 MG ORAL TABLET take 1 tablet po qhs for restless leg syndrome. PRAMIPEXOLE DIHYD ROCHLORIDE 0.125 MG ORAL TABLET 279632 PRAMIPEXOLE DIHYDROCHLORIDE Inactive MIRTAZAPINE 15 MG ORAL TABLET 1/2 tab by mouth at bedtime. 03/13 MIRTAZAPINE 15 MG ORAL TABLET 698880 MIRTAZAPINE In active DIFLUCAN 100 MG ORAL TABLET 1 tablet by mouth daily X 3 DAYS 201 04/09/01 DIFLUCAN 100 MG ORAL TABLET 726088 FLUCONAZOLE Inac tive DIFLUCAN 100 MG ORAL TABLET 1 tablet by mouth every other da y for 2 doses DIFLUCAN 100 MG ORAL TABLET 132490 FLUCONAZOLE Inactive CEFTIN 250 MG ORAL TABLET 1 tablet twice daily x 7 days CEFTIN 250 MG ORAL TABLET CEFUROXIME AXETIL Inactive CYMBALTA 30 MG ORAL CAPSULE DELAYED RELEASE PARTICLES 1 cap by mouth daily with 60mg CYMBALTA 30 MG ORAL CAPSULE DELAYED RELEASE PARTICLES 919147 DULOXETINE HCL Inactive CYMBALTA 60 MG ORAL CAPSULE DELAYED RELEASE PARTICLES Take 1 tablet by mouth daily CYMBALTA 60 MG ORAL CAPSULE DELAYED RELEA SE PARTICLES 109092 DULOXETINE HCL Inactive FOSAMAX 70 MG ORAL TABLET 1 po qweek. Take 30min prio r to first food/drink. Avoid lying down x 1 hour. FOSAMAX 70 MG ORAL TA BLET 607475 ALENDRONATE SODIUM Inactive DIFLUCAN 100 MG ORAL TABLET 1 tablet by mouth daily 19/08/26 DIFLUCAN 100 MG ORAL TABLET 795047 FLUCONAZOLE Inactive PREDNISONE 20 MG ORAL TABLET 1 tab twice daily for 3 d ay, then one daily for three days PREDNISONE 20 MG ORAL TABLET 603155 PREDNIS ONE Inactive PROAIR HFA 108 (90 BASE) MCG/ACT INHALATION AEROSOL SO LUTION 1 puff every 6 hours as needed PROAIR HFA 108 (90 B ASE) MCG/ACT INHALATION AEROSOL SOLUTION ALBUTEROL SULFATE Inactive MECLIZINE HCL 25 MG ORAL TABLET one tab po qday prn dizziness 20 17/09/06 MECLIZINE HCL 25 MG ORAL TABLET 780271 MECLIZINE HCL Inactive PREDNISONE 20 MG ORAL TABLET 1 tablet by mouth twice d aily for 3 days, then 1 tablet daily for 3 days PREDNISONE 20 MG ORAL TA BLET 778540 PREDNISONE Inactive DIFLUCAN 100 MG ORAL TABLET 1 tablet by mouth daily 20/06/06 DIFLUCAN 100 MG ORAL TABLET 900044 FLUCONAZOLE Inactive REPHRESH PRO-B ORAL CAPSULE 1 tablet daily REPHRESH PRO-B ORAL CAPSULE LACTOBACILLUS Inactive RED YEAST RICE 600 MG ORAL CAPSULE 1 pill by mouth daily RED YEAST RICE 600 MG ORAL CAPSULE 643531 RED YEAST RICE EXTRACT In active SUDAFED [...] 07/07/09 VENLAFAXINE HCL 75 MG ORAL TABLET 514688 VENLAFAXINE HCL Inacti ve GABAPENTIN 300 MG ORAL CAPSULE 1 po daily GABAPENTIN 300 MG ORAL CAPSULE 358262 GABAPENTIN Inactive SUDAFED 12 HOUR 120 MG ORAL TABLET EXTENDED RELEASE 12 HOUR 1 pill twice daily if needed for congestion SUDAFED 12 HOUR 120 MG ORAL TABLET EXTENDED RELEASE 12 HOUR PSEUDOEPHEDRINE HCL Inactive AMITRIPTYLINE HCL 10 MG ORAL TABLET 1 tablet nightly by mout h for neuropathy AMITRIPTYLINE HCL 10 MG ORAL TABLET 882199 AMITRIPTYLINE HCL Inactive AMITRIPTYLINE HCL 50 MG ORAL TABLET 1 po q hs for sleep AMITRIPTYLINE HCL 50 MG ORAL TABLET 973100 AMITRIPTYLINE HCL Inac tive PREDNISONE 20 MG ORAL TABLET 1 tab twice daily for 3 d ay, then one daily for three days PREDNISONE 20 MG ORAL TABLET 550190 PREDNIS ONE Inactive ROPINIROLE HCL 0.25 MG ORAL TABLET 1 TAB PO Q HS 05/31 ROPINIROLE HCL 0.25 MG ORAL TABLET 863803 ROPINIROLE HCL Inact trent ROPINIROLE HCL 0.5 MG ORAL TABLET 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 ROPINIROLE HCL 0.5 MG ORAL TABLET 215982 ROPINIR OLE HCL Inactive ROPINIROLE HCL 1 MG ORAL TABLET 1 tab po q hs ROPINIROLE HCL 1 MG ORAL TABLET 530577 ROPINIROLE HCL Inactive ROPINIROLE HCL 2 MG ORAL TABLET 1 po at hs 7 ROPINIROLE HCL 2 MG ORAL TABLET 202539 ROPINIROLE HCL Inactive MIRAPEX 0.125 MG ORAL TABLET 1 po nightly MIRAPEX 0.125 MG ORAL TABLET 338241 PRAMIPEXOLE DIHYDROCHLORIDE Inactive BACTRIM DS 800-160 MG ORAL TABLET 1 tab by mouth twice daily 201 03/03/23 BACTRIM DS 800-160 MG ORAL TABLET 021096 TRIMETHOPRIM-SULFAMETHOXAZOLE Inactive ZITHROMAX 250 MG ORAL TABLET 2 po today, then 1 po q days 2-5 20 15/02/10 ZITHROMAX 250 MG ORAL TABLET 259973 AZITHROMYCIN [place] ctive BACTRIM DS 800-160 MG ORAL TABLET [...] a day AMOXICILLIN 500 MG ORAL CAPSULE 110844 AMOXICILLIN Inactive ZITHROMAX 250 MG ORAL TABLET 2 po today, then 1 po q days 2-5 20 20/04/28 ZITHROMAX 250 MG ORAL TABLET 468510 AZITHROMYCIN [place] ctive DIFLUCAN 100 MG ORAL TABLET 1 [...] 07/08/06 BACTRIM DS 800-160 MG ORAL TABLET 551027 TRIMETHOPRIM-SULFAMETHOXAZOLE Inactive DIFLUCAN 100 MG ORAL TABLET 1 tablet by mouth daily 20 21/03/11 DIFLUCAN 100 MG ORAL TABLET 19760711 FLUCONAZOLE Inactive Advance Directives Directive Description Start Date PERMISSION TO SHARE DISCUSSED WITH PATIENT -- NO DECISION MADE DURABLE POWER OF REEL HOOKER FOR HEALTHCARE DISCUSED WITH PATIENT -- FULL [...] Magnesium - Chemistry cholesterol, serum 196 mg/dL 956-301 5097/07/30 triglyceride, serum, fasting 86 mg/dL 30-200 HDL cholesterol, serum 41 mg/dL 32-60 LDL cholesterol, serum 138 mg/dL 0-130 sodium, serum 140 mmol/L 250-636 2042/07/30 carbon dioxide, venous blood 28.6 mmol/L 21.0-32 [...] Comp. M etabolic Panel, CBC - Chemistry protein, total urine random Negative mg/dL Negative sodium, serum 139 mmol/L 452-273 3601/11/07 carbon dioxide, venous blood 28.4 mmol/L 21.0-32 [...] 8.5-10.1 bilirubin, serum, total 0.50 mg/dL 0.00-1.00 RBC, urine, dipstick Trace-lysed Negative Lab Report: [...] Negative Encounters Code Encounter Date Provider Facility CPT-15241 [id number] Vst-Est Level IV 14:08:03 C BRIDGET Sherman MD [facility] CPT-18260 Level 3 Est. Patient 18:06:36 CDT Tesfaye pearson MD [facility] CPT-23487 [id number] Vst-Est Level IV 17:09:34 C BRIDGET Sherman MD [facility] CPT-86824 Level 3 Est. Patient 17:27:08 CDT León Portillo [facility] CPT-14045 [id number] Vst-Est Level IV 14:00:[address] Tesfaye Sehrman MD [facility] CPT-13364 [id number] Vst-Est Level IV 19:27:[address] Tesfaye Sherman MD [facility] CPT-49973 [id number] Vst-Est Level IV 10:41:41 C BRIDGET Sherman MD [facility] CPT-49268 [id number] Vst-Est Level III 09:40:56 CDT Tesfaye Sherman MD [facility] CPT-27599 Level 4 Est. Patient 22:18:12 CDT Tesfaye pearson MD [facility] CPT-78919 Level 4 Est. Patient 14:44:33 TRANSPORT COORDINATOR Tesfaye pearson MD [facility] CPT-81269 Level 4 Est. Patient 13:55:29 TRANSPORT COORDINATOR Tesfaye pearson MD [facility] CPT-13982 Level 4 Est. Patient 17:07:34 TRANSPORT COORDINATOR Tesfaye pearson MD [facility] CPT-60753 Level 4 Est. Patient 13:56:54 CDT Tesfaye pearson MD [facility] CPT-00851 Level 4 Est. Patient 13:24:25 CDT [facility] CPT-99003 Level 4 Est. Patient 09:14:56 CDT Tesfaye pearson MD [facility] CPT-11363 Level 4 Est. Patient 18:40:25 TRANSPORT COORDINATOR Tesfaye pearson MD [facility] CPT-15904 Level 4 Est. Patient 18:13:07 TRANSPORT COORDINATOR Tesfaye pearson MD [facility]-21371 Level 3 Est. Patient 10:46:32 CDT jR cotto DO [facility]-26398 Level 4 Est. Patient 20:19:25 CDT Tesfaye pearson MD [facility]-66211 Level 3 Est. Patient 09:07:31 CDT Tesfaye pearson MD [facility]-54503 Level 4 Est. Patient 13:12:56 CDT Tesfaye pearson MD [facility]-37848 Level 4 Est. Patient 21:24:55 TRANSPORT COORDINATOR Tesfaye pearson MD [facility]-23087 Level 3 Est. Patient 13:45:04 TRANSPORT COORDINATOR Tesfaye pearson MD [facility] CPT-05358 Level 4 Est. Patient 13:50:45 CDT Tesfaye pearson MD [facility] CPT-47520 Level 3 Est. Patient 10:16:10 CDT Tesfaye pearson MD [facility] CPT-26168 Level 3 Est. Patient 16:36:07 TRANSPORT COORDINATOR Kayla jameson MD [facility]-20464 Level 4 Est. Patient 16:00:14 TRANSPORT COORDINATOR Tesfaye pearson MD [facility]-00841 Level 4 Est. Patient 11:02:24 TRANSPORT COORDINATOR Tesfaye pearson MD [facility]-31331 Level 3 Est. Patient 20:21:43 TRANSPORT COORDINATOR Kayla jameson MD [facility]-74630 Level 3 Est. Patient 13:27:28 TRANSPORT COORDINATOR Kayla jameson MD [facility]-10382 Level 4 Est. Patient 15:57:17 TRANSPORT COORDINATOR Tesfaye pearson MD [facility] CPT-77411 Level 3 New Patient 13:25:47 CDT Tesfaye kidd MD [facility] CPT-79633 Level 3 New Patient 17:22:21 CDT Kayla angel MD [facility] Procedures Code Procedure Name Date Entry Date Standard Desc ription CPT-80859 Bone Density - XRAY USE ONLY 15:21:33 CDT 2 CPT-73181 Venipuncture Draw Fee 16:12:22 CDT CPT-G0439 Subsequent Annual Wellness Exam 18:06:36 CDT CPT-G0439 Subsequent Annual Wellness Exam 22:18:11 CDT CPT-33860 Bone Density - XRAY USE ONLY 11:43:58 CDT 2 CPT-95105 Bone Density - XRAY USE ONLY 10:05:16 CDT 2 CPT-70418 Prv Med New Pt 40-64 yrs 18:19:25 CDT 2016 CPT-99423 Foot, right, comp min 3V - XRAY USE ONLY 10:38:34 CDT CPT-G0439 Subsequent Annual Wellness Exam 13:55:04 CDT CPT-G0438 Initial Annual Wellness Exam 11:23:17 CD T CPT-J2930 Solu Medrol 125 mg (Methyl Prednisolone Sodium Succinate) 17:29:12 TRANSPORT COORDINATOR CPT-39302 Abx/Therapy Injection 17:29:11 TRANSPORT COORDINATOR CPT-J2930 Solu Medrol 125 mg (Methyl Prednisolone Sodium Succinate) 12:34:38 TRANSPORT COORDINATOR CPT-J3420 Vitamin B12 1000mcg (Cyanocobalamin) 09:12:55 CDT CPT-J3420 Vitamin B12 1000mcg (Cyanocobalamin) 16:28:06 TRANSPORT COORDINATOR CPT-16224 Venipuncture Draw Fee 08:39:53 CDT CPT-J3420 Vitamin B12 1000mcg (Cyanocobalamin) 08:46:22 CDT CPT-17746 Abx/Therapy Injection 08:46:22 CDT CPT-J3420 Vitamin B12 1000mcg (Cyanocobalamin) 08:41:26 CDT CPT-17700 Abx/Therapy Injection 08:41:26 CDT CPT-J3420 Vitamin B12 1000mcg (Cyanocobalamin) 08:57:15 CDT CPT-68046 Abx/Therapy Injection 08:57:15 CDT CPT-J3420 Vitamin B12 1000mcg (Cyanocobalamin) 10:59:03 CDT CPT-41289 Abx/Therapy Injection 10:59:03 CDT CPT-J3420 Vitamin B12 1000mcg (Cyanocobalamin) 15:05:39 CDT CPT-26932 Abx/Therapy Injection 15:05:39 CDT CPT-J3420 Vitamin B12 1000mcg (Cyanocobalamin) 13:50:45 CDT CPT-J3420 Vitamin B12 1000mcg (Cyanocobalamin) 08:48:55 CDT CPT-99911 Abx/Therapy Injection 08:48:55 CDT CPT-J3420 Vitamin B12 1000mcg (Cyanocobalamin) 09:14:54 CDT CPT-70392 Abx/Therapy Injection 09:14:54 CDT CPT-J3420 Vitamin B12 1000mcg (Cyanocobalamin) 09:06:06 CDT CPT-75710 Abx/Therapy Injection 09:06:06 CDT CPT-J3420 Vitamin B12 1000mcg (Cyanocobalamin) 09:49:14 CDT CPT-20102 Abx/Therapy Injection 09:49:14 CDT CPT-J3420 Vitamin B12 1000mcg (Cyanocobalamin) 09:10:30 TRANSPORT COORDINATOR CPT-29393 Abx/Therapy Injection 09:10:30 TRANSPORT COORDINATOR CPT-J3420 Vitamin B12 1000mcg (Cyanocobalamin) 09:11:07 TRANSPORT COORDINATOR CPT-21999 Abx/Therapy Injection 09:11:07 TRANSPORT COORDINATOR CPT-J3420 Vitamin B12 1000mcg (Cyanocobalamin) 09:57:03 TRANSPORT COORDINATOR CPT-53145 Abx/Therapy Injection 09:57:03 TRANSPORT COORDINATOR CPT-J3420 Vitamin B12 1000mcg (Cyanocobalamin) 09:23:21 TRANSPORT COORDINATOR CPT-53202 Abx/Therapy Injection 09:23:21 TRANSPORT COORDINATOR CPT-97139 Urine Dip (Floor Use Only) 20:21:44 TRANSPORT COORDINATOR 201 02/12/11 CPT-68277 UA Dip Auto (Floor Use Only) 10:04:39 TRANSPORT COORDINATOR 2 CPT-04946 Urine Dip (Floor Use Only) 13:27:28 TRANSPORT COORDINATOR 201 02/12/01 CPT-69680 Bladder Scan 13:27:28 TRANSPORT COORDINATOR CPT-87465 Abd single AP View 14:30:51 TRANSPORT COORDINATOR CPT-OV Office Visit 10:15:43 CDT CPT-07137 Urine Dip (Floor Use Only) 17:22:21 CDT 201 02/09/02 CPT-15103 Bladder Scan 17:22:21 CDT
--- OUTSIDE RECORDS SUMMARY | 2020-05-05 11:14 | XMS REPORT | Clinical Summary ---
Author Author Talon, Jeri Wood Organization [employer] Address Unknown Phone Unavailable Allergies, Adverse Reactions, [...] MD Routine general medical examination at formerly [facility] acility Sinusitis 461.9 Resolved Tesfaye [...] MD Routine general medical examination at a [facility] acility Body Mass Index 21.0-21.9 [...] bilateral 782.3 Active 201 07/07/09 León Kodi TONGER Edema Peripheral neuropathy 356.9 Active Tesfaye lamb [...] night for r estless leg PRAMIPEXOLE DIHYDROCHLORIDE 68322006439 Active Laurence Ra duyen Active MIRAPEX 0.125 MG ORAL TABLET 1 po nightly PRAMIPEXOLE DIHYDROCHLORIDE 97212248888 No Longer Active Laurence Raida Active ROPINIROLE HCL 2 MG ORAL TABLET 1 po at hs ROPI NIROLE HCL 42170542871 No Longer Active Laurence Raida Active ROPINIROLE HCL 1 MG ORAL TABLET 1 tab po q hs ROPINIROLE HCL 17122935375 No Longer Active Laurence Raida Active ROPINIROLE HCL 0.5 MG ORAL TABLET 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 ROPINIROLE HCL 10233738575 No Longer Active MARCUS Panchal Active ROPINIROLE HCL 0.25 MG ORAL TABLET 1 TAB PO Q HS 05/31 ROPINIROLE HCL 18222171286 No Longer Active Tesfaye Sherman MD Ac tive PREDNISONE 20 MG ORAL TABLET 1 tab twice daily for 3 d ay, then one daily for three days PREDNISONE 23712763106 No Longer Active Tesfaye Sherman MD Active AMITRIPTYLINE HCL 50 MG ORAL TABLET 1 po q hs for sleep AMITRIPTYLINE HCL 04740994604 No Longer Active Tesfaye Sherman MD Active AMITRIPTYLINE HCL 10 MG ORAL TABLET 1 tablet nightly by mout h for neuropathy AMITRIPTYLINE HCL 24447220838 No Longer Active MARCUS Stapleton Active DIFLUCAN 100 MG ORAL TABLET 1 tablet by mouth daily 05/11 FLUCONAZOLE 36464437800 No Longer Active Tesfaye Sherman MD Acti ve BACTRIM DS 800-160 MG ORAL TABLET 1 tab by mouth twice daily 201 07/08/06 TRIMETHOPRIM-SULFAMETHOXAZOLE 15085499947 No Longer Active D patricia Sherman MD Active CLARITIN 10 MG ORAL TABLET Take one by mouth daily LORATADINE 27185829360 Active Tesfaye Sherman MD Active SUDAFED 12 HOUR 120 MG ORAL TABLET EXTENDED RELEASE 12 HOUR 1 pill twice daily if needed for congestion PSEUDOEPHEDRINE HCL 048772696 13 No Longer Active Tesfaye Sherman MD Active FENOFIBRATE 145 MG ORAL TABLET 1 by mouth daily FENOFIBRATE 40144033960 Active Laurence Dominguez Active GABAPENTIN 300 MG ORAL CAPSULE 1 po daily GABAP ENTIN 37626573721 No Longer Active Tesfaye Sherman MD Active HYDROCHLOROTHIAZIDE 12.5 MG ORAL CAPSULE 1 pill by mough daily 2 HYDROCHLOROTHIAZIDE 52182645858 No Longer Active León Mariee APRN Active VENLAFAXINE HCL 75 MG ORAL TABLET 1 am 1/2 at noon 201 07/07/09 VENLAFAXINE HCL 45896126198 No Longer Active León Mariee APRN Act trent DIFLUCAN 100 MG ORAL TABLET 1 tablet by mouth daily 20 19/02/09 FLUCONAZOLE 59236417236 No Longer Active León Kodi DUMASN Active DIFLUCAN 100 MG ORAL TABLET 1 tablet by mouth daily 20 19/02/09 FLUCONAZOLE 14100722847 No Longer Active León Mariee APRN Active OXYCODONE-ACETAMINOPHEN 5-325 MG ORAL TABLET Take one tablet by mouth every 6 hours 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 Use sparingly OXYCODONE-ACETAMINOPHEN 93194904324 Active Tesfaye villar MD Active CLONAZEPAM 0.5 MG ORAL TABLET Take 1/2 qam, and 1/2 qpm CLONAZEPAM 83261958529 Active Tesfaye Sherman MD Active PRELIEF 340 (65-50) MG (CA-P) ORAL TABLET CALCIUM GLYCEROPHOSPHATE 23051149658 No Longer Active Tesfaye Sherman MD Active SUDAFED 24 HOUR 240 MG ORAL TABLET EXTENDED RELEASE 24 HOUR 1 tab po daily PSEUDOEPHEDRINE HCL 92579522112 No Longer Active Raul Sherman MD Active RED YEAST RICE 600 MG ORAL CAPSULE 1 pill by mouth daily RED YEAST RICE EXTRACT 45364019042 No Longer Active Tesfaye Sherman MD Active REPHRESH PRO-B ORAL CAPSULE 1 tablet daily LACT OBACILLUS 76216547426 No Longer Active Tesfaye Sherman MD Active ABILIFY 2 MG ORAL TABLET 1 by mouth daily. MARIA ELENA PIPRAZOLE 94866316362 Active Tesfaye Sherman MD Active CYMBALTA 60 MG ORAL CAPSULE DELAYED RELEASE PARTICLES 1 cap by mouth daily for pain DULOXETINE HCL 50461598189 Active MARCUS Lindsay Active DIFLUCAN 100 MG ORAL TABLET 1 tablet by mouth daily 20 20/06/06 FLUCONAZOLE 95478312856 No Longer Active Tesfaye Sherman MD Acti ve PREDNISONE 20 MG ORAL TABLET 1 tablet by mouth twice d aily for 3 days, then 1 tablet daily for 3 days PREDNISONE 99552334308 No L onger Active Tesfaye Sherman MD Active BACTRIM DS 800-160 MG ORAL TABLET 1 tab by mouth twice daily 201 06/09/02 TRIMETHOPRIM-SULFAMETHOXAZOLE 40544778960 No Longer Active Fer Dominguez Active DIFLUCAN 100 MG ORAL TABLET 1 tablet by mouth daily 20 20/05/01 FLUCONAZOLE 31462100130 No Longer Active Tesfaye Sherman MD Acti ve ZITHROMAX 250 MG ORAL TABLET 2 po today, then 1 po q days 2-5 20 20/04/28 AZITHROMYCIN 35588252631 No Longer Active Tesfaye Sherman MD Active MECLIZINE HCL 25 MG ORAL TABLET one tab po qday prn dizziness 20 17/09/06 MECLIZINE HCL 13519961190 No Longer Active Tesfaye Sherman MD Active PROAIR HFA 108 (90 BASE) MCG/ACT INHALATION AEROSOL SO LUTION 1 puff every 6 hours as needed ALBUTEROL SULFATE 40290027459 No Long er Active Tesfaye Sherman MD Active PREDNISONE 20 MG ORAL TABLET 1 tab twice daily for 3 d ay, then one daily for three days PREDNISONE 68153449951 No Longer Active Tesfaye Sherman MD Active MECLIZINE HCL 25 MG ORAL TABLET one 4 times a day as needed for dizziness MECLIZINE HCL 14244598573 Active Tesfaye Sherman MD Active AMOXICILLIN 500 MG ORAL CAPSULE 1 cap by mouth three times a day AMOXICILLIN 60066035243 No Longer Active Laurence Dominguez Acti ve DIFLUCAN 100 MG ORAL TABLET 1 tablet by mouth daily 20 19/08/26 FLUCONAZOLE 30451443004 No Longer Active Tesfaye Sherman MD Acti ve BACTRIM DS 800-160 MG ORAL TABLET 1 tab by mouth twice daily 201 05/10/28 TRIMETHOPRIM-SULFAMETHOXAZOLE 87906723959 No Longer Active Fer Dominguez Active FOSAMAX 70 MG ORAL TABLET 1 po qweek. Take 30min prio r to first food/drink. Avoid lying down x 1 hour. ALENDRONATE SODIUM 11948854 144 No Longer Active Laurenceyohana Dominguez Active CYMBALTA 60 MG ORAL CAPSULE DELAYED RELEASE PARTICLES Take 1 tablet by mouth daily DULOXETINE HCL 12651081725 No Longer Active Edith Burch MD Active CYMBALTA 30 MG ORAL CAPSULE DELAYED RELEASE PARTICLES 1 cap by mouth daily with 60mg DULOXETINE HCL 33959290840 No Longer Active Jordan Burch MD Active FISH OIL 1000 MG ORAL CAPSULE DELAYED RELEASE 1 pill b y mouth daily for cholesterol OMEGA-3 FATTY ACIDS 85106281571 Active Cee Jaffe LPN Active DIFLUCAN 100 MG ORAL TABLET 1 tablet by mouth daily 19/03/05 FLUCONAZOLE 11122141191 No Longer Active Tesfaye Sherman MD Acti ve BACTRIM DS 800-160 MG ORAL TABLET 1 tab by mouth twice daily 201 05/06/28 TRIMETHOPRIM-SULFAMETHOXAZOLE 89981246966 No Longer Active Umer Sherman MD Active BACTRIM DS 800-160 MG ORAL TABLET 1 tab by mouth twice daily 201 05/04/15 TRIMETHOPRIM-SULFAMETHOXAZOLE 19535815504 No Longer Active Umer Sherman MD Active DIFLUCAN 150 MG ORAL TABLET 1 tablet by mouth daily 20 18/09/20 FLUCONAZOLE 20004583874 No Longer Active Tesfaye Sherman MD Acti ve BACTRIM DS 800-160 MG ORAL TABLET 1 tab by mouth twice daily 201 04/13/17 TRIMETHOPRIM-SULFAMETHOXAZOLE 87066260330 No Longer Active Umer Sherman MD Active CEFTIN 250 MG ORAL TABLET 1 tablet twice daily x 7 days CEFUROXIME AXETIL 18773358542 No Longer Active Tesfaye Sherman MD Active DIFLUCAN 100 MG ORAL TABLET 1 tablet by mouth every other da y for 2 doses FLUCONAZOLE 33860688478 No Longer Active Tesfaye barron MD Active DIFLUCAN 100 MG ORAL TABLET 1 tablet by mouth daily X 3 DAYS 201 04/09/01 FLUCONAZOLE 21603110130 No Longer Active Rj Ravi MIRTAZAPINE 15 MG ORAL TABLET 1/2 tab by mouth at bedtime. 03/13 MIRTAZAPINE 26491065392 No Longer Active Tesfaye Sherman MD Active BACTRIM DS 800-160 MG ORAL TABLET 1 tab by mouth twice daily 201 04/09/01 TRIMETHOPRIM-SULFAMETHOXAZOLE 13382331397 No Longer Active Umer Sherman MD Active PRAMIPEXOLE DIHYDROCHLORIDE 0.125 MG ORAL TABLET take 1 tablet po qhs for restless leg syndrome. PRAMIPEXOLE DIHYDROCHLORI DE 49473651084 No Longer Active Tesfaye Sherman MD Active MAGNESIUM 400 MG ORAL TABLET 1 tab po daily FELIX FAGAN 96745110511 Active Chelsea Cardenas APRN Active CETIRIZINE HCL 5 MG ORAL TABLET Take 1 tablet by mouth daily CETIRIZINE HCL 87237651037 No Longer Active Chelsea Cardenas APRN Activ e TRIMETHOPRIM 100 MG ORAL TABLET 1/2 qd TRIM ETHOPRIM 33202908389 No Longer Active Chelsea Cardenas APRN Active BACTRIM DS 800-160 MG ORAL TABLET 1 tab by mouth twice daily 201 04/04/11 TRIMETHOPRIM-SULFAMETHOXAZOLE 28356357368 No Longer Active Umer Sherman MD Active BACTRIM DS 800-160 MG ORAL TABLET 1 tab by mouth twice daily X 10 DAYS TRIMETHOPRIM-SULFAMETHOXAZOLE 60791439427 No Longer Active Tesfaye Sherman MD Active AMOXICILLIN 500 MG ORAL CAPSULE 1 cap by mouth three times a day AMOXICILLIN 15585315741 No Longer Active Adriana Arredondo, A A ctive B-12 1000 MCG ORAL LOZENGE 1 tab po daily CYANO COBALAMIN 27712405153 Active Tesfaye Sherman MD Active VITAMIN D3 2000 UNIT ORAL TABLET 1 daily, for vitamin D deficien cy CHOLECALCIFEROL 98728761588 No Longer Active Tesfaye Sherman MD Active TIZANIDINE HCL 2 MG ORAL TABLET take 1-2 tablet by mo [facility] every day at bedtime at 9pm PRN TIZANIDINE HCL 75495299694 Active Tesfaye hewitt MD Active ZITHROMAX 250 MG ORAL TABLET 2 po today, then 1 po q days 2-5 20 15/02/10 AZITHROMYCIN 80449575195 No Longer Active Tesfaye Sherman MD Active BACTRIM DS 800-160 MG ORAL TABLET 1 tab by mouth twice daily 201 03/03/23 TRIMETHOPRIM-SULFAMETHOXAZOLE 81425507817 No Longer Active Umer Sherman MD Active [facility] NIACIN FLUSH FREE 400-100 MG ORAL CAPSULE 1 daily NIACIN-INOSITOL 84110107869 Active Kayla Cooper MD Activ e DIFLUCAN 150 MG ORAL TABLET 1 qd FLUCONAZOL E 50988245349 No Longer Active Kayla Cooper MD Active FLUTICASONE PROPIONATE 50 MCG/ACT NASAL SUSPENSION 1 spray each nostril twice daily FLUTICASONE PROPIONATE 69260072214 Active D patricia Sherman MD Active LOVASTATIN 20 MG ORAL TABLET Take 1 tablet by mouth daily LOVASTATIN 55654340315 No Longer Active Tesfaye hSerman MD Acti ve MELOXICAM 7.5 MG ORAL TABLET 1 tablet by mouth daily 2 MELOXICAM 97146154502 No Longer Active Tesfaye Sherman MD Acti ve GABAPENTIN 300 MG ORAL CAPSULE Take two tablets by mouth every e vening GABAPENTIN 84208200943 No Longer Active Edith Burch MD A ctive BACLOFEN 10 MG ORAL TABLET Take one tablet by mouth three times a d ay BACLOFEN 08225441140 Active Kayla Cooper MD Active GABAPENTIN 300 MG ORAL CAPSULE Take two tablets by mouth every e vening GABAPENTIN 300 MG ORAL CAPSULE 615546 GABAPENTIN I nactive MELOXICAM 7.5 MG ORAL TABLET 1 tablet by mouth daily 2 MELOXICAM 7.5 MG ORAL TABLET 729929 MELOXICAM Inactive LOVASTATIN 20 MG ORAL TABLET Take 1 tablet by mouth daily LOVASTATIN 20 MG ORAL TABLET 089814 LOVASTATIN Inactive DIFLUCAN 150 MG ORAL TABLET 1 qd DIFLUCAN 150 MG ORAL TABLET 004952 FLUCONAZOLE Inactive VITAMIN D3 2000 UNIT ORAL TABLET 1 daily, for vitamin D deficien cy VITAMIN D3 2000 UNIT ORAL TABLET CHOLECALCIFEROL Inactive AMOXICILLIN 500 MG ORAL CAPSULE 1 cap by mouth three times a day AMOXICILLIN 500 MG ORAL CAPSULE 587391 AMOXICILLIN Inactive BACTRIM DS 800-160 MG ORAL TABLET 1 tab by mouth twice daily X 10 DAYS BACTRIM DS 800-160 MG ORAL TABLET 613753 TRIMETHOPRIM-SULFAMETHOXAZOLE Inactive TRIMETHOPRIM 100 MG ORAL TABLET 1/2 qd 7 TRIMETHOPRIM 100 MG ORAL TABLET 867971 TRIMETHOPRIM Inactive CETIRIZINE HCL 5 MG ORAL TABLET Take 1 tablet by mouth daily CETIRIZINE HCL 5 MG ORAL TABLET 6422530 CETIRIZINE HCL Inactive PRAMIPEXOLE DIHYDROCHLORIDE 0.125 MG ORAL TABLET take 1 tablet po qhs for restless leg syndrome. PRAMIPEXOLE DIHYD ROCHLORIDE 0.125 MG ORAL TABLET 422074 PRAMIPEXOLE DIHYDROCHLORIDE Inactive MIRTAZAPINE 15 MG ORAL TABLET 1/2 tab by mouth at bedtime. 03/13 MIRTAZAPINE 15 MG ORAL TABLET 899246 MIRTAZAPINE In active DIFLUCAN 100 MG ORAL TABLET 1 tablet by mouth daily X 3 DAYS 201 04/09/01 DIFLUCAN 100 MG ORAL TABLET 440428 FLUCONAZOLE Inac tive DIFLUCAN 100 MG ORAL TABLET 1 tablet by mouth every other da y for 2 doses DIFLUCAN 100 MG ORAL TABLET 137172 FLUCONAZOLE Inactive CEFTIN 250 MG ORAL TABLET 1 tablet twice daily x 7 days CEFTIN 250 MG ORAL TABLET CEFUROXIME AXETIL Inactive CYMBALTA 30 MG ORAL CAPSULE DELAYED RELEASE PARTICLES 1 cap by mouth daily with 60mg CYMBALTA 30 MG ORAL CAPSULE DELAYED RELEASE PARTICLES 070975 DULOXETINE HCL Inactive CYMBALTA 60 MG ORAL CAPSULE DELAYED RELEASE PARTICLES Take 1 tablet by mouth daily CYMBALTA 60 MG ORAL CAPSULE DELAYED RELEA SE PARTICLES 041488 DULOXETINE HCL Inactive FOSAMAX 70 MG ORAL TABLET 1 po qweek. Take 30min prio r to first food/drink. Avoid lying down x 1 hour. FOSAMAX 70 MG ORAL TA BLET 392825 ALENDRONATE SODIUM Inactive DIFLUCAN 100 MG ORAL TABLET 1 tablet by mouth daily 19/08/26 DIFLUCAN 100 MG ORAL TABLET 668821 FLUCONAZOLE Inactive PREDNISONE 20 MG ORAL TABLET 1 tab twice daily for 3 d ay, then one daily for three days PREDNISONE 20 MG ORAL TABLET 468406 PREDNIS ONE Inactive PROAIR HFA 108 (90 BASE) MCG/ACT INHALATION AEROSOL SO LUTION 1 puff every 6 hours as needed PROAIR HFA 108 (90 B ASE) MCG/ACT INHALATION AEROSOL SOLUTION ALBUTEROL SULFATE Inactive MECLIZINE HCL 25 MG ORAL TABLET one tab po qday prn dizziness 20 17/09/06 MECLIZINE HCL 25 MG ORAL TABLET 878405 MECLIZINE HCL Inactive PREDNISONE 20 MG ORAL TABLET 1 tablet by mouth twice d aily for 3 days, then 1 tablet daily for 3 days PREDNISONE 20 MG ORAL TA BLET 033402 PREDNISONE Inactive DIFLUCAN 100 MG ORAL TABLET 1 tablet by mouth daily 20/06/06 DIFLUCAN 100 MG ORAL TABLET 699783 FLUCONAZOLE Inactive REPHRESH PRO-B ORAL CAPSULE 1 tablet daily REPHRESH PRO-B ORAL CAPSULE LACTOBACILLUS Inactive RED YEAST RICE 600 MG ORAL CAPSULE 1 pill by mouth daily RED YEAST RICE 600 MG ORAL CAPSULE 467715 RED YEAST RICE EXTRACT In active SUDAFED [...] 07/07/09 VENLAFAXINE HCL 75 MG ORAL TABLET 029583 VENLAFAXINE HCL Inacti ve GABAPENTIN 300 MG ORAL CAPSULE 1 po daily GABAPENTIN 300 MG ORAL CAPSULE 087278 GABAPENTIN Inactive SUDAFED 12 HOUR 120 MG ORAL TABLET EXTENDED RELEASE 12 HOUR 1 pill twice daily if needed for congestion SUDAFED 12 HOUR 120 MG ORAL TABLET EXTENDED RELEASE 12 HOUR PSEUDOEPHEDRINE HCL Inactive AMITRIPTYLINE HCL 10 MG ORAL TABLET 1 tablet nightly by mout h for neuropathy AMITRIPTYLINE HCL 10 MG ORAL TABLET 762781 AMITRIPTYLINE HCL Inactive AMITRIPTYLINE HCL 50 MG ORAL TABLET 1 po q hs for sleep AMITRIPTYLINE HCL 50 MG ORAL TABLET 291976 AMITRIPTYLINE HCL Inac tive PREDNISONE 20 MG ORAL TABLET 1 tab twice daily for 3 d ay, then one daily for three days PREDNISONE 20 MG ORAL TABLET 155353 PREDNIS ONE Inactive ROPINIROLE HCL 0.25 MG ORAL TABLET 1 TAB PO Q HS 05/31 ROPINIROLE HCL 0.25 MG ORAL TABLET 399465 ROPINIROLE HCL Inact trent ROPINIROLE HCL 0.5 MG ORAL TABLET 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 ROPINIROLE HCL 0.5 MG ORAL TABLET 605989 ROPINIR OLE HCL Inactive ROPINIROLE HCL 1 MG ORAL TABLET 1 tab po q hs ROPINIROLE HCL 1 MG ORAL TABLET 066508 ROPINIROLE HCL Inactive ROPINIROLE HCL 2 MG ORAL TABLET 1 po at hs 7 ROPINIROLE HCL 2 MG ORAL TABLET 477453 ROPINIROLE HCL Inactive MIRAPEX 0.125 MG ORAL TABLET 1 po nightly MIRAPEX 0.125 MG ORAL TABLET 257490 PRAMIPEXOLE DIHYDROCHLORIDE Inactive BACTRIM DS 800-160 MG ORAL TABLET 1 tab by mouth twice daily 201 03/03/23 BACTRIM DS 800-160 MG ORAL TABLET 763325 TRIMETHOPRIM-SULFAMETHOXAZOLE Inactive ZITHROMAX 250 MG ORAL TABLET 2 po today, then 1 po q days 2-5 20 15/02/10 ZITHROMAX 250 MG ORAL TABLET 236951 AZITHROMYCIN [facility] ctive BACTRIM DS 800-160 MG ORAL TABLET [...] a day AMOXICILLIN 500 MG ORAL CAPSULE 944914 AMOXICILLIN Inactive ZITHROMAX 250 MG ORAL TABLET 2 po today, then 1 po q days 2-5 20 20/04/28 ZITHROMAX 250 MG ORAL TABLET 069783 AZITHROMYCIN [facility] ctive DIFLUCAN 100 MG ORAL TABLET 1 [...] 07/08/06 BACTRIM DS 800-160 MG ORAL TABLET 405468 TRIMETHOPRIM-SULFAMETHOXAZOLE Inactive DIFLUCAN 100 MG ORAL TABLET 1 tablet by mouth daily 20 21/03/11 DIFLUCAN 100 MG ORAL TABLET 19760711 FLUCONAZOLE Inactive Advance Directives Directive Description Start Date PERMISSION TO SHARE DISCUSSED WITH PATIENT -- NO DECISION MADE DURABLE POWER OF PENCIL SORTER FOR HEALTHCARE DISCUSED WITH PATIENT -- FULL [...] Magnesium - Chemistry cholesterol, serum 196 mg/dL 776-027 7592/07/30 triglyceride, serum, fasting 86 mg/dL 30-200 HDL cholesterol, serum 41 mg/dL 32-60 LDL cholesterol, serum 138 mg/dL 0-130 sodium, serum 140 mmol/L 289-512 0358/07/30 carbon dioxide, venous blood 28.6 mmol/L 21.0-32 [...] Negative mg/dL Negative sodium, serum 139 mmol/L 962-480 7428/11/07 carbon dioxide, venous blood 28.4 mmol/L 21.0-32 [...] ative Encounters Code Encounter Date Provider Facility CPT-51559 [id number] Vst-Est Level IV 14:08:03 C BRIDGET hSerman MD [facility] CPT-68418 Level 3 Est. Patient 18:06:36 CDT Tesfaye pearson MD [facility] CPT-98466 [id number] Vst-Est Level IV 17:09:34 C BRIDGET Sherman MD [facility] CPT-12584 Level 3 Est. Patient 17:27:08 CDT León Portillo david [facility] CPT-04466 [id number] Vst-Est Level IV 14:00:[address] Tesfaye Sherman MD [facility] CPT-83646 [id number] Vst-Est Level IV 19:27:[address] Tesfaye Sherman MD [facility] CPT-26690 [id number] Vst-Est Level IV 10:41:41 C BRIDGET Sherman MD [facility] CPT-44804 [id number] Vst-Est Level III 09:40:56 CDT Tesfaye Sherman MD [facility] CPT-37889 Level 4 Est. Patient 22:18:12 CDT Tesfaye pearson MD [facility] CPT-72336 Level 4 Est. Patient 14:44:33 GRAPHICS PRODUCTION SPECIALIST Tesfaye pearson MD [facility] CPT-73445 Level 4 Est. Patient 13:55:29 GRAPHICS PRODUCTION SPECIALIST Tesfaye pearson MD [facility] CPT-98380 Level 4 Est. Patient 17:07:34 GRAPHICS PRODUCTION SPECIALIST Tesfaye pearson MD [facility] CPT-48051 Level 4 Est. Patient 13:56:54 CDT Tesfaye pearson MD [facility] CPT-03967 Level 4 Est. Patient 13:24:25 CDT Chelsea sanz [facility] CPT-36369 Level 4 Est. Patient 09:14:56 CDT Tesfaye pearson MD [facility] CPT-30192 Level 4 Est. Patient 18:40:25 GRAPHICS PRODUCTION SPECIALIST Tesfaye pearson MD [facility] CPT-19903 Level 4 Est. Patient 18:13:07 GRAPHICS PRODUCTION SPECIALIST Tesfaye pearson MD [facility]-11938 Level 3 Est. Patient 10:46:32 CDT Rj cotto DO [facility]-72062 Level 4 Est. Patient 20:19:25 CDT Tesfaye pearson MD [facility]-31950 Level 3 Est. Patient 09:07:31 CDT Tesfaye pearson MD [facility]-68519 Level 4 Est. Patient 13:12:56 CDT Tesfaye pearson MD [facility]-79384 Level 4 Est. Patient 21:24:55 GRAPHICS PRODUCTION SPECIALIST Tesfaye pearson MD [facility]-34475 Level 3 Est. Patient 13:45:04 GRAPHICS PRODUCTION SPECIALIST Tesfaye pearson MD [facility] CPT-42906 Level 4 Est. Patient 13:50:45 CDT Tesfaye pearson MD [facility] CPT-20425 Level 3 Est. Patient 10:16:10 CDT Tesfaye pearson MD [facility] CPT-15532 Level 3 Est. Patient 16:36:07 GRAPHICS PRODUCTION SPECIALIST Kayla jameson MD [facility]-16324 Level 4 Est. Patient 16:00:14 GRAPHICS PRODUCTION SPECIALIST Tesfaye pearson MD [facility]-45576 Level 4 Est. Patient 11:02:24 GRAPHICS PRODUCTION SPECIALIST Tesfaye pearson MD [facility]-71389 Level 3 Est. Patient 20:21:43 GRAPHICS PRODUCTION SPECIALIST Kayla jameson MD [facility]-07819 Level 3 Est. Patient 13:27:28 GRAPHICS PRODUCTION SPECIALIST Kayla jameson MD [facility]-98416 Level 4 Est. Patient 15:57:17 GRAPHICS PRODUCTION SPECIALIST Tesfaye pearson MD [facility] CPT-61711 Level 3 New Patient 13:25:47 CDT Tesfaye kidd MD [facility] CPT-24023 Level 3 New Patient 17:22:21 CDT Kayla angel MD [facility] Procedures Code Procedure Name Date Entry Date Standard Desc ription CPT-31104 Bone Density - XRAY USE ONLY 15:21:33 CDT 2 CPT-32980 Venipuncture Draw Fee 16:12:22 CDT CPT-G0439 Subsequent Annual Wellness Exam 18:06:36 CDT CPT-G0439 Subsequent Annual Wellness Exam 22:18:11 CDT CPT-52092 Bone Density - XRAY USE ONLY 11:43:58 CDT 2 CPT-38420 Bone Density - XRAY USE ONLY 10:05:16 CDT 2 CPT-15812 Prv Med New Pt 40-64 yrs 18:19:25 CDT 2016 CPT-49914 Foot, right, comp min 3V - XRAY USE ONLY 10:38:34 CDT CPT-G0439 Subsequent Annual Wellness Exam 13:55:04 CDT CPT-G0438 Initial Annual Wellness Exam 11:23:17 CD T CPT-J2930 Solu Medrol 125 mg (Methyl Prednisolone Sodium Succinate) 17:29:12 GRAPHICS PRODUCTION SPECIALIST CPT-15979 Abx/Therapy Injection 17:29:11 GRAPHICS PRODUCTION SPECIALIST CPT-J2930 Solu Medrol 125 mg (Methyl Prednisolone Sodium Succinate) 12:34:38 GRAPHICS PRODUCTION SPECIALIST CPT-J3420 Vitamin B12 1000mcg (Cyanocobalamin) 09:12:55 CDT CPT-J3420 Vitamin B12 1000mcg (Cyanocobalamin) 16:28:06 GRAPHICS PRODUCTION SPECIALIST CPT-93249 Venipuncture Draw Fee 08:39:53 CDT CPT-J3420 Vitamin B12 1000mcg (Cyanocobalamin) 08:46:22 CDT CPT-78625 Abx/Therapy Injection 08:46:22 CDT CPT-J3420 Vitamin B12 1000mcg (Cyanocobalamin) 08:41:26 CDT CPT-44333 Abx/Therapy Injection 08:41:26 CDT CPT-J3420 Vitamin B12 1000mcg (Cyanocobalamin) 08:57:15 CDT CPT-31564 Abx/Therapy Injection 08:57:15 CDT CPT-J3420 Vitamin B12 1000mcg (Cyanocobalamin) 10:59:03 CDT CPT-56310 Abx/Therapy Injection 10:59:03 CDT CPT-J3420 Vitamin B12 1000mcg (Cyanocobalamin) 15:05:39 CDT CPT-47145 Abx/Therapy Injection 15:05:39 CDT CPT-J3420 Vitamin B12 1000mcg (Cyanocobalamin) 13:50:45 CDT CPT-J3420 Vitamin B12 1000mcg (Cyanocobalamin) 08:48:55 CDT CPT-91957 Abx/Therapy Injection 08:48:55 CDT CPT-J3420 Vitamin B12 1000mcg (Cyanocobalamin) 09:14:54 CDT CPT-96970 Abx/Therapy Injection 09:14:54 CDT CPT-J3420 Vitamin B12 1000mcg (Cyanocobalamin) 09:06:06 CDT CPT-53485 Abx/Therapy Injection 09:06:06 CDT CPT-J3420 Vitamin B12 1000mcg (Cyanocobalamin) 09:49:14 CDT CPT-13650 Abx/Therapy Injection 09:49:14 CDT CPT-J3420 Vitamin B12 1000mcg (Cyanocobalamin) 09:10:30 GRAPHICS PRODUCTION SPECIALIST CPT-48821 Abx/Therapy Injection 09:10:30 GRAPHICS PRODUCTION SPECIALIST CPT-J3420 Vitamin B12 1000mcg (Cyanocobalamin) 09:11:07 GRAPHICS PRODUCTION SPECIALIST CPT-74859 Abx/Therapy Injection 09:11:07 GRAPHICS PRODUCTION SPECIALIST CPT-J3420 Vitamin B12 1000mcg (Cyanocobalamin) 09:57:03 GRAPHICS PRODUCTION SPECIALIST CPT-95607 Abx/Therapy Injection 09:57:03 GRAPHICS PRODUCTION SPECIALIST CPT-J3420 Vitamin B12 1000mcg (Cyanocobalamin) 09:23:21 GRAPHICS PRODUCTION SPECIALIST CPT-90671 Abx/Therapy Injection 09:23:21 GRAPHICS PRODUCTION SPECIALIST CPT-22818 Urine Dip (Floor Use Only) 20:21:44 GRAPHICS PRODUCTION SPECIALIST 201 02/12/11 CPT-39707 UA Dip Auto (Floor Use Only) 10:04:39 GRAPHICS PRODUCTION SPECIALIST 2 CPT-94323 Urine Dip (Floor Use Only) 13:27:28 GRAPHICS PRODUCTION SPECIALIST 201 02/12/01 CPT-66826 Bladder Scan 13:27:28 GRAPHICS PRODUCTION SPECIALIST CPT-79768 Abd single AP View 14:30:51 GRAPHICS PRODUCTION SPECIALIST CPT-OV Office Visit 10:15:43 CDT CPT-36241 Urine Dip (Floor Use Only) 17:22:21 CDT 201 02/09/02 CPT-41882 Bladder Scan 17:22:21 CDT
--- OUTSIDE RECORDS SUMMARY | 2020-05-05 11:15 | XMS REPORT | Clinical Summary ---
Author Author Talon, Jeri Wood Organization [employer] Address Unknown Phone Unavailable Allergies, Adverse Reactions, Alerts Allergy Name Reaction Description Start Date Severity Status Pr ovider FOSAMAX Critical Active Tesfaye armenta MD PRAMIPEXOLE Critical Active Tesfaye villar MD CEFTIN Critical Active Tesfaye armenta MD CIPRO Critical Active Tesfaye armenta MD MIRTAZAPINE Bloating, edema, fatigue, muscle pain Moderate Active Tsefaye Sherman MD MIRAPEX caused dizziness and weakness [...] examination at [facility] acility Sinusitis 461.9 Resolved Tesfaye Sherman MD [...] Routine [facility] ac[facility] Body Mass Index 21.0-21.9 Adult [...] bilateral 782.3 Active 201 07/07/09 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 ROPINIROLE HCL 82330761838 No Longer Active MARCUS Panchal Active ROPINIROLE HCL 0.25 MG ORAL TABLET 1 TAB PO Q HS 05/31 ROPINIROLE HCL 88356949500 No Longer Active Tesfaye Sherman MD Ac tive PREDNISONE 20 MG ORAL TABLET 1 tab twice daily for 3 d ay, then one daily for three days PREDNISONE 91924369362 No Longer Active Tesfaye Sherman MD Active AMITRIPTYLINE HCL 50 MG ORAL TABLET 1 po q hs for sleep AMITRIPTYLINE HCL 46795106997 No Longer Active Tesfaye Sherman MD Active AMITRIPTYLINE HCL 10 MG ORAL TABLET 1 tablet nightly by mout h for neuropathy AMITRIPTYLINE HCL 01669191320 No Longer Active MARCUS Stapleton Active DIFLUCAN 100 MG ORAL TABLET 1 tablet by mouth daily 05/11 FLUCONAZOLE 93083831567 No Longer Active Tesfaye Sherman MD Acti ve BACTRIM DS 800-160 MG ORAL TABLET 1 tab by mouth twice daily 201 07/08/06 TRIMETHOPRIM-SULFAMETHOXAZOLE 33785391445 No Longer Active D patricia Sherman MD Active CLARITIN 10 MG ORAL TABLET Take one by mouth daily LORATADINE 78056538702 Active Tesfaye Sherman MD Active SUDAFED 12 HOUR 120 MG ORAL TABLET EXTENDED RELEASE 12 HOUR 1 pill twice daily if needed for congestion PSEUDOEPHEDRINE HCL 359150095 13 No Longer Active Tesfaye Sherman MD Active FENOFIBRATE 145 MG ORAL TABLET 1 by mouth daily FENOFIBRATE 19868984063 Active Laurence Dominguez Active GABAPENTIN 300 MG ORAL CAPSULE 1 po daily GABAP ENTIN 15051964339 No Longer Active Tesfaye Sherman MD Active HYDROCHLOROTHIAZIDE 12.5 MG ORAL CAPSULE 1 pill by mough daily 2 HYDROCHLOROTHIAZIDE 64152690448 No Longer Active León Mariee APRN Active VENLAFAXINE HCL 75 MG ORAL TABLET 1 am 1/2 at noon 201 07/07/09 VENLAFAXINE HCL 00416972685 No Longer Active León Mariee APRN Act trent DIFLUCAN 100 MG ORAL TABLET 1 tablet by mouth daily 20 19/02/09 FLUCONAZOLE 49508093978 No Longer Active León Kodi DUMASN Active DIFLUCAN 100 MG ORAL TABLET 1 tablet by mouth daily 20 19/02/09 FLUCONAZOLE 32338364257 No Longer Active León Mariee APRN Active OXYCODONE-ACETAMINOPHEN 5-325 MG ORAL TABLET Take one tablet by mouth every 6 hours 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 Use sparingly OXYCODONE-ACETAMINOPHEN 68118428308 Active Tesfaye villar MD Active CLONAZEPAM 0.5 MG ORAL TABLET Take 1/2 qam, and 1/2 qpm CLONAZEPAM 21586326842 Active Tesfaye Sherman MD Active PRELIEF 340 (65-50) MG (CA-P) ORAL TABLET CALCIUM GLYCEROPHOSPHATE 45095655409 No Longer Active Tesfaye Sherman MD Active SUDAFED 24 HOUR 240 MG ORAL TABLET EXTENDED RELEASE 24 HOUR 1 tab po daily PSEUDOEPHEDRINE HCL 22506136325 No Longer Active Raul Sherman MD Active RED YEAST RICE 600 MG ORAL CAPSULE 1 pill by mouth daily RED YEAST RICE EXTRACT 19178973617 No Longer Active Tesfaye Sherman MD Active REPHRESH PRO-B ORAL CAPSULE 1 tablet daily LACT OBACILLUS 94312814456 No Longer Active Tesfaye Sherman MD Active ABILIFY 2 MG ORAL TABLET 1 by mouth daily. MARIA ELENA PIPRAZOLE 39072544150 Active Tesfaye Sherman MD Active CYMBALTA 60 MG ORAL CAPSULE DELAYED RELEASE PARTICLES 1 cap by mouth daily for pain DULOXETINE HCL 11944517074 Active MARCUS Lindsay Active DIFLUCAN 100 MG ORAL TABLET 1 tablet by mouth daily 20 20/06/06 FLUCONAZOLE 60229248773 No Longer Active Tesfaye Sherman MD Acti ve PREDNISONE 20 MG ORAL TABLET 1 tablet by mouth twice d aily for 3 days, then 1 tablet daily for 3 days PREDNISONE 86328804743 No L onger Active Tesfaye Sherman MD Active BACTRIM DS 800-160 MG ORAL TABLET 1 tab by mouth twice daily 201 06/09/02 TRIMETHOPRIM-SULFAMETHOXAZOLE 16096482900 No Longer Active Fer Dominguez Active DIFLUCAN 100 MG ORAL TABLET 1 tablet by mouth daily 20 20/05/01 FLUCONAZOLE 98871157708 No Longer Active Tesfaye Sherman MD Acti ve ZITHROMAX 250 MG ORAL TABLET 2 po today, then 1 po q days 2-5 20 20/04/28 AZITHROMYCIN 28996147226 No Longer Active Tesfaye Sherman MD Active MECLIZINE HCL 25 MG ORAL TABLET one tab po qday prn dizziness 20 17/09/06 MECLIZINE HCL 65419925300 No Longer Active Tesfaye Sherman MD Active PROAIR HFA 108 (90 BASE) MCG/ACT INHALATION AEROSOL SO LUTION 1 puff every 6 hours as needed ALBUTEROL SULFATE 14436481714 No Long er Active Tesfaye Sherman MD Active PREDNISONE 20 MG ORAL TABLET 1 tab twice daily for 3 d ay, then one daily for three days PREDNISONE 59951057277 No Longer Active Tesfaye Sherman MD Active MECLIZINE HCL 25 MG ORAL TABLET one 4 times a day as needed for dizziness MECLIZINE HCL 18472228227 Active Tesfaye Sherman MD Active AMOXICILLIN 500 MG ORAL CAPSULE 1 cap by mouth three times a day AMOXICILLIN 63780608922 No Longer Active Laurence Dominguez Acti ve DIFLUCAN 100 MG ORAL TABLET 1 tablet by mouth daily 20 19/08/26 FLUCONAZOLE 78798950083 No Longer Active Tesfaye Sherman MD Acti ve BACTRIM DS 800-160 MG ORAL TABLET 1 tab by mouth twice daily 201 05/10/28 TRIMETHOPRIM-SULFAMETHOXAZOLE 92547110242 No Longer Active Fer Dominguez Active FOSAMAX 70 MG ORAL TABLET 1 po qweek. Take 30min prio r to first food/drink. Avoid lying down x 1 hour. ALENDRONATE SODIUM 38002361 144 No Longer Active Laurenceyohana Dominguez Active CYMBALTA 60 MG ORAL CAPSULE DELAYED RELEASE PARTICLES Take 1 tablet by mouth daily DULOXETINE HCL 63321521906 No Longer Active Edith Burch MD Active CYMBALTA 30 MG ORAL CAPSULE DELAYED RELEASE PARTICLES 1 cap by mouth daily with 60mg DULOXETINE HCL 62860218566 No Longer Active Jordan Burch MD Active FISH OIL 1000 MG ORAL CAPSULE DELAYED RELEASE 1 pill b y mouth daily for cholesterol OMEGA-3 FATTY ACIDS 63826218681 Active Cee Jaffe LPN Active DIFLUCAN 100 MG ORAL TABLET 1 tablet by mouth daily 19/03/05 FLUCONAZOLE 58896900798 No Longer Active Tesfaye Sherman MD Acti ve BACTRIM DS 800-160 MG ORAL TABLET 1 tab by mouth twice daily 201 05/06/28 TRIMETHOPRIM-SULFAMETHOXAZOLE 61369876584 No Longer Active Umer Sherman MD Active BACTRIM DS 800-160 MG ORAL TABLET 1 tab by mouth twice daily 201 05/04/15 TRIMETHOPRIM-SULFAMETHOXAZOLE 03284917370 No Longer Active Umer Sherman MD Active DIFLUCAN 150 MG ORAL TABLET 1 tablet by mouth daily 20 18/09/20 FLUCONAZOLE 03530735735 No Longer Active Tesfaye Sherman MD Acti ve BACTRIM DS 800-160 MG ORAL TABLET 1 tab by mouth twice daily 201 04/13/17 TRIMETHOPRIM-SULFAMETHOXAZOLE 15480207604 No Longer Active Umer Sherman MD Active CEFTIN 250 MG ORAL TABLET 1 tablet twice daily x 7 days CEFUROXIME AXETIL 90875801300 No Longer Active Tesfaye Sherman MD Active DIFLUCAN 100 MG ORAL TABLET 1 tablet by mouth every other da y for 2 doses FLUCONAZOLE 71674117344 No Longer Active Tesfaye barron MD Active DIFLUCAN 100 MG ORAL TABLET 1 tablet by mouth daily X 3 DAYS 201 04/09/01 FLUCONAZOLE 86498775191 No Longer Active Rj Ravi MIRTAZAPINE 15 MG ORAL TABLET 1/2 tab by mouth at bedtime. 03/13 MIRTAZAPINE 09357009315 No Longer Active Tesfaye Sherman MD Active BACTRIM DS 800-160 MG ORAL TABLET 1 tab by mouth twice daily 201 04/09/01 TRIMETHOPRIM-SULFAMETHOXAZOLE 07243073413 No Longer Active Umer Sherman MD Active PRAMIPEXOLE DIHYDROCHLORIDE 0.125 MG ORAL TABLET take 1 tablet po qhs for restless leg syndrome. PRAMIPEXOLE DIHYDROCHLORI DE 63244173510 No Longer Active Tesfaye Sherman MD Active MAGNESIUM 400 MG ORAL TABLET 1 tab po daily FELIX FAGAN 62572414923 Active Chelsea Cardenas APRN Active CETIRIZINE HCL 5 MG ORAL TABLET Take 1 tablet by mouth daily CETIRIZINE HCL 10150911322 No Longer Active Chelsea Cardenas APRN Activ e TRIMETHOPRIM 100 MG ORAL TABLET 1/2 qd TRIM ETHOPRIM 22761912714 No Longer Active Chelsea Cardenas APRN Active BACTRIM DS 800-160 MG ORAL TABLET 1 tab by mouth twice daily 201 04/04/11 TRIMETHOPRIM-SULFAMETHOXAZOLE 25450770323 No Longer Active Umer Sherman MD Active BACTRIM DS 800-160 MG ORAL TABLET 1 tab by mouth twice daily X 10 DAYS TRIMETHOPRIM-SULFAMETHOXAZOLE 55950300122 No Longer Active Tesfaye Sherman MD Active AMOXICILLIN 500 MG ORAL CAPSULE 1 cap by mouth three times a day AMOXICILLIN 85256799297 No Longer Active Adriana Arredondo, A A ctive B-12 1000 MCG ORAL LOZENGE 1 tab po daily CYANO COBALAMIN 17978500598 Active Tesfaye Sherman MD Active VITAMIN D3 2000 UNIT ORAL TABLET 1 daily, for vitamin D deficien cy CHOLECALCIFEROL 24994999961 No Longer Active Tesfaye Sherman MD Active TIZANIDINE HCL 2 MG ORAL TABLET take 1-2 tablet by mo [facility] every day at bedtime at 9pm PRN TIZANIDINE HCL 87546738302 Active Tesfaye hewitt MD Active ZITHROMAX 250 MG ORAL TABLET 2 po today, then 1 po q days 2-5 20 15/02/10 AZITHROMYCIN 33769779505 No Longer Active Tesfaye Sherman MD Active BACTRIM DS 800-160 MG ORAL TABLET 1 tab by mouth twice daily 201 03/03/23 TRIMETHOPRIM-SULFAMETHOXAZOLE 00925245792 No Longer Active Umer Sherman MD Active [facility] NIACIN FLUSH FREE 400-100 MG ORAL CAPSULE 1 daily NIACIN-INOSITOL 85912670084 Active Kayla Cooper MD Activ e DIFLUCAN 150 MG ORAL TABLET 1 qd FLUCONAZOL E 75965400310 No Longer Active Kayla Cooper MD Active FLUTICASONE PROPIONATE 50 MCG/ACT NASAL SUSPENSION 1 spray each nostril twice daily FLUTICASONE PROPIONATE 99529370700 Active D patricia Sherman MD Active LOVASTATIN 20 MG ORAL TABLET Take 1 tablet by mouth daily LOVASTATIN 41388814126 No Longer Active Tesfaye Sherman MD Acti ve MELOXICAM 7.5 MG ORAL TABLET 1 tablet by mouth daily 2 MELOXICAM 99893201432 No Longer Active Tesfaye Sherman MD Acti ve GABAPENTIN 300 MG ORAL CAPSULE Take two tablets by mouth every e vening GABAPENTIN 65070870173 No Longer Active Edith Burch MD A ctive BACLOFEN 10 MG ORAL TABLET Take one tablet by mouth three times a d ay BACLOFEN 95465562005 Active Kayla Cooper MD Active GABAPENTIN 300 MG ORAL CAPSULE Take two tablets by mouth every e vening GABAPENTIN 300 MG ORAL CAPSULE 920958 GABAPENTIN I nactive MELOXICAM 7.5 MG ORAL TABLET 1 tablet by mouth daily 2 MELOXICAM 7.5 MG ORAL TABLET 606908 MELOXICAM Inactive LOVASTATIN 20 MG ORAL TABLET Take 1 tablet by mouth daily LOVASTATIN 20 MG ORAL TABLET 533911 LOVASTATIN Inactive DIFLUCAN 150 MG ORAL TABLET 1 qd DIFLUCAN 150 MG ORAL TABLET 651719 FLUCONAZOLE Inactive VITAMIN D3 2000 UNIT ORAL TABLET 1 daily, for vitamin D deficien cy VITAMIN D3 2000 UNIT ORAL TABLET CHOLECALCIFEROL Inactive AMOXICILLIN 500 MG ORAL CAPSULE 1 cap by mouth three times a day AMOXICILLIN 500 MG ORAL CAPSULE 955536 AMOXICILLIN Inactive BACTRIM DS 800-160 MG ORAL TABLET 1 tab by mouth twice daily X 10 DAYS BACTRIM DS 800-160 MG ORAL TABLET 761069 TRIMETHOPRIM-SULFAMETHOXAZOLE Inactive TRIMETHOPRIM 100 MG ORAL TABLET 1/2 qd 7 TRIMETHOPRIM 100 MG ORAL TABLET 631795 TRIMETHOPRIM Inactive CETIRIZINE HCL 5 MG ORAL TABLET Take 1 tablet by mouth daily CETIRIZINE HCL 5 MG ORAL TABLET 0076203 CETIRIZINE HCL Inactive PRAMIPEXOLE DIHYDROCHLORIDE 0.125 MG ORAL TABLET take 1 tablet po qhs for restless leg syndrome. PRAMIPEXOLE DIHYD ROCHLORIDE 0.125 MG ORAL TABLET 474968 PRAMIPEXOLE DIHYDROCHLORIDE Inactive MIRTAZAPINE 15 MG ORAL TABLET 1/2 tab by mouth at bedtime. 03/13 MIRTAZAPINE 15 MG ORAL TABLET 915561 MIRTAZAPINE In active DIFLUCAN 100 MG ORAL TABLET 1 tablet by mouth daily X 3 DAYS 201 04/09/01 DIFLUCAN 100 MG ORAL TABLET 083049 FLUCONAZOLE Inac tive DIFLUCAN 100 MG ORAL TABLET 1 tablet by mouth every other da y for 2 doses DIFLUCAN 100 MG ORAL TABLET 319409 FLUCONAZOLE Inactive CEFTIN 250 MG ORAL TABLET 1 tablet twice daily x 7 days CEFTIN 250 MG ORAL TABLET CEFUROXIME AXETIL Inactive CYMBALTA 30 MG ORAL CAPSULE DELAYED RELEASE PARTICLES 1 cap by mouth daily with 60mg CYMBALTA 30 MG ORAL CAPSULE DELAYED RELEASE PARTICLES 882427 DULOXETINE HCL Inactive CYMBALTA 60 MG ORAL CAPSULE DELAYED RELEASE PARTICLES Take 1 tablet by mouth daily CYMBALTA 60 MG ORAL CAPSULE DELAYED RELEA SE PARTICLES 414747 DULOXETINE HCL Inactive FOSAMAX 70 MG ORAL TABLET 1 po qweek. Take 30min prio r to first food/drink. Avoid lying down x 1 hour. FOSAMAX 70 MG ORAL TA BLET 556716 ALENDRONATE SODIUM Inactive DIFLUCAN 100 MG ORAL TABLET 1 tablet by mouth daily 19/08/26 DIFLUCAN 100 MG ORAL TABLET 327355 FLUCONAZOLE Inactive PREDNISONE 20 MG ORAL TABLET 1 tab twice daily for 3 d ay, then one daily for three days PREDNISONE 20 MG ORAL TABLET 610202 PREDNIS ONE Inactive PROAIR HFA 108 (90 BASE) MCG/ACT INHALATION AEROSOL SO LUTION 1 puff every 6 hours as needed PROAIR HFA 108 (90 B ASE) MCG/ACT INHALATION AEROSOL SOLUTION ALBUTEROL SULFATE Inactive MECLIZINE HCL 25 MG ORAL TABLET one tab po qday prn dizziness 20 17/09/06 MECLIZINE HCL 25 MG ORAL TABLET 863058 MECLIZINE HCL Inactive PREDNISONE 20 MG ORAL TABLET 1 tablet by mouth twice d aily for 3 days, then 1 tablet daily for 3 days PREDNISONE 20 MG ORAL TA BLET 992303 PREDNISONE Inactive DIFLUCAN 100 MG ORAL TABLET 1 tablet by mouth daily 20/06/06 DIFLUCAN 100 MG ORAL TABLET 163376 FLUCONAZOLE Inactive REPHRESH PRO-B ORAL CAPSULE 1 tablet daily REPHRESH PRO-B ORAL CAPSULE LACTOBACILLUS Inactive RED YEAST RICE 600 MG ORAL CAPSULE 1 pill by mouth daily RED YEAST RICE 600 MG ORAL CAPSULE 207900 RED YEAST RICE EXTRACT In active SUDAFED [...] 07/07/09 VENLAFAXINE HCL 75 MG ORAL TABLET 152709 VENLAFAXINE HCL Inacti ve GABAPENTIN 300 MG ORAL CAPSULE 1 po daily GABAPENTIN 300 MG ORAL CAPSULE 001330 GABAPENTIN Inactive SUDAFED 12 HOUR 120 MG ORAL TABLET EXTENDED RELEASE 12 HOUR 1 pill twice daily if needed for congestion SUDAFED 12 HOUR 120 MG ORAL TABLET EXTENDED RELEASE 12 HOUR PSEUDOEPHEDRINE HCL Inactive AMITRIPTYLINE HCL 10 MG ORAL TABLET 1 tablet nightly by mout h for neuropathy AMITRIPTYLINE HCL 10 MG ORAL TABLET 345497 AMITRIPTYLINE HCL Inactive AMITRIPTYLINE HCL 50 MG ORAL TABLET 1 po q hs for sleep AMITRIPTYLINE HCL 50 MG ORAL TABLET 664408 AMITRIPTYLINE HCL Inac tive PREDNISONE 20 MG ORAL TABLET 1 tab twice daily for 3 d ay, then one daily for three days PREDNISONE 20 MG ORAL TABLET 414569 PREDNIS ONE Inactive ROPINIROLE HCL 0.25 MG ORAL TABLET 1 TAB PO Q HS 05/31 ROPINIROLE HCL 0.25 MG ORAL TABLET 615897 ROPINIROLE HCL Inact trent ROPINIROLE HCL 0.5 MG ORAL TABLET 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 ROPINIROLE HCL 0.5 MG ORAL TABLET 112823 ROPINIR OLE HCL Inactive ROPINIROLE HCL 1 MG ORAL TABLET 1 tab po q hs ROPINIROLE HCL 1 MG ORAL TABLET 428412 ROPINIROLE HCL Inactive ROPINIROLE HCL 2 MG ORAL TABLET 1 po at hs 7 ROPINIROLE HCL 2 MG ORAL TABLET 556630 ROPINIROLE HCL Inactive MIRAPEX 0.125 MG ORAL TABLET 1 po nightly MIRAPEX 0.125 MG ORAL TABLET 175799 PRAMIPEXOLE DIHYDROCHLORIDE Inactive BACTRIM DS 800-160 MG ORAL TABLET 1 tab by mouth twice daily 201 03/03/23 BACTRIM DS 800-160 MG ORAL TABLET 188620 TRIMETHOPRIM-SULFAMETHOXAZOLE Inactive ZITHROMAX 250 MG ORAL TABLET 2 po today, then 1 po q days 2-5 20 15/02/10 ZITHROMAX 250 MG ORAL TABLET 328604 AZITHROMYCIN Madeline ctive BACTRIM DS 800-160 MG ORAL TABLET [...] a day AMOXICILLIN 500 MG ORAL CAPSULE 165767 AMOXICILLIN Inactive ZITHROMAX 250 MG ORAL TABLET 2 po today, then 1 po q days 2-5 20 20/04/28 ZITHROMAX 250 MG ORAL TABLET 743423 AZITHROMYCIN Madeline ctive DIFLUCAN 100 MG ORAL TABLET 1 [...] 07/08/06 BACTRIM DS 800-160 MG ORAL TABLET 909384 TRIMETHOPRIM-SULFAMETHOXAZOLE Inactive DIFLUCAN 100 MG ORAL TABLET 1 tablet by mouth daily 20 21/03/11 DIFLUCAN 100 MG ORAL TABLET 19760711 FLUCONAZOLE Inactive Advance Directives Directive Description Start Date PERMISSION TO SHARE DISCUSSED WITH PATIENT -- NO DECISION MADE DURABLE POWER OF BUSINESS LIAISON OFFICER FOR HEALTHCARE DISCUSED WITH PATIENT -- FULL [...] Magnesium - Chemistry cholesterol, serum 196 mg/dL 143-994 6545/07/30 triglyceride, serum, fasting 86 mg/dL 30-200 HDL cholesterol, serum 41 mg/dL 32-60 LDL cholesterol, serum 138 mg/dL 0-130 sodium, serum 140 mmol/L 630-920 9931/07/30 carbon dioxide, venous blood 28.6 mmol/L 21.0-32 [...] Negative mg/dL Negative sodium, serum 139 mmol/L 655-010 4459/11/07 carbon dioxide, venous blood 28.4 mmol/L 21.0-32 [...] ative Encounters Code Encounter Date Provider Facility CPT-40843 [id number] Vst-Est Level IV 14:08:03 C BRIDGET Sherman MD [facility] CPT-31167 Level 3 Est. Patient 18:06:36 CDT Tesfaye pearson MD [facility] CPT-48785 [id number] Vst-Est Level IV 17:09:34 C BRIDGET Sherman MD [facility] CPT-48074 Level 3 Est. Patient 17:27:08 CDT León Portillo david [facility] CPT-34171 [id number] Vst-Est Level IV 14:00:[address] Tesfaye Sherman MD [facility] CPT-61186 [id number] Vst-Est Level IV 19:27:[address] Tesfaye Sherman MD [facility] CPT-71867 [id number] Vst-Est Level IV 10:41:41 C BRIDGET Sherman MD [facility] CPT-23192 [id number] Vst-Est Level III 09:40:56 CDT Tesfaye Sherman MD [facility] CPT-02138 Level 4 Est. Patient 22:18:12 CDT Tesfaye pearson MD [facility] CPT-63734 Level 4 Est. Patient 14:44:33 [employer]AT BUIL[employer] SUPERVISOR Tesfaye pearson MD [facility] CPT-23151 Level 4 Est. Patient 13:55:29 WO[employer]AT BUILDER SUPERVISOR Tesfaye pearson MD [facility] CPT-10835 Level 4 Est. Patient 17:07:34 WO[employer] BUILDER SUPERVISOR Tesfaye pearson MD [facility] CPT-94937 Level 4 Est. Patient 13:56:54 CDT Tesfaye pearson MD [facility] CPT-98098 Level 4 Est. Patient 13:24:25 CDT Chelsea sanz [facility] CPT-54179 Level 4 Est. Patient 09:14:56 CDT Tesfaye pearson MD [facility] CPT-54926 Level 4 Est. 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 Patient 18:13:07 WO[employer] BUILDER SUPERVISOR Tesfaye pearson MD [facility]-59374 Level 3 Est. Patient 10:46:32 CDT Rj cotto DO [facility]-10455 Level 4 Est. Patient 20:19:25 CDT Tesfaye pearson MD [facility]-23797 Level 3 Est. Patient 09:07:31 CDT Tesfaye pearson MD [facility]-56893 Level 4 Est. Patient 13:12:56 CDT Tesfaye pearson MD [facility]-68635 Level 4 Est. Patient 21:24:55 WO[employer] BOAT BUILDER SUPERVISOR Tesfaye pearson MD [facility]-34423 Level 3 Est. Patient 13:45:04 WO[employer] BUILDER SUPERVISOR Tesfaye pearson MD [facility] CPT-35201 Level 4 Est. Patient 13:50:45 CDT Tesfaye pearson MD [facility] CPT-88794 Level 3 Est. Patient 10:16:10 CDT Tesfaye pearson MD [facility] CPT-81161 Level 3 Est. Patient 16:36:07 WO[employer] BOAT BUILDER SUPERVISOR Kayla jameson MD [facility]-87010 Level 4 Est. Patient 16:00:14 WO[employer] BUILDER SUPERVISOR Tesfaye pearson MD [facility]-48772 Level 4 Est. Patient 11:02:24 WO[employer] BOAT BUILDER SUPERVISOR Tesfaye pearson MD [facility]-55521 Level 3 Est. Patient 20:21:43 WO[employer]AT BUILDER SUPERVISOR Kayla jameson MD [facility]-33074 Level 3 Est. Patient 13:27:28 WO[employer]AT BUILDER SUPERVISOR Kayla jameson MD [facility]-95834 Level 4 Est. Patient 15:57:17 WO[employer] BUILDER SUPERVISOR Tesfaye pearson MD [facility] CPT-87106 Level 3 New Patient 13:25:47 CDT Tesfaye kidd MD [facility] CPT-35562 Level 3 New Patient 17:22:21 CDT Kayla angel MD [facility] Procedures Code Procedure Name Date Entry Date Standard Desc ription CPT-25143 Venipuncture Draw Fee 16:12:22 CDT CPT-G0439 Subsequent Annual Wellness Exam 18:06:36 CDT CPT-G0439 Subsequent Annual Wellness Exam 22:18:11 CDT CPT-48899 Bone Density - XRAY USE ONLY 11:43:58 CDT 2 CPT-00722 Bone Density - XRAY USE ONLY 10:05:16 CDT 2 CPT-63274 Prv Med New Pt 40-64 yrs 18:19:25 CDT 2016 CPT-78235 Foot, right, comp min 3V - XRAY USE ONLY 10:38:34 CDT CPT-G0439 Subsequent Annual Wellness Exam 13:55:04 CDT CPT-G0438 Initial Annual Wellness Exam 11:23:17 CD T CPT-J2930 Solu Medrol 125 mg (Methyl Prednisolone Sodium Succinate) 17:29:12 [employer] SUPERVISOR CPT-09878 Abx/Therapy Injection 17:29:11 [employer] BU[employer] SUPERVISOR CPT-J2930 Solu Medrol 125 mg (Methyl Prednisolone Sodium Succinate) 12:34:38 [employer] BU[employer] SUPERVISOR CPT-J3420 Vitamin B12 1000mcg (Cyanocobalamin) 09:12:55 CDT CPT-J3420 Vitamin B12 1000mcg (Cyanocobalamin) 16:28:06 [employer] BUILDER SUPERVISOR CPT-69184 Venipuncture Draw Fee 08:39:53 CDT CPT-J3420 Vitamin B12 1000mcg (Cyanocobalamin) 08:46:22 CDT CPT-79675 Abx/Therapy Injection 08:46:22 CDT CPT-J3420 Vitamin B12 1000mcg (Cyanocobalamin) 08:41:26 CDT CPT-49151 Abx/Therapy Injection 08:41:26 CDT CPT-J3420 Vitamin B12 1000mcg (Cyanocobalamin) 08:57:15 CDT CPT-58798 Abx/Therapy Injection 08:57:15 CDT CPT-J3420 Vitamin B12 1000mcg (Cyanocobalamin) 10:59:03 CDT CPT-93210 Abx/Therapy Injection 10:59:03 CDT CPT-J3420 Vitamin B12 1000mcg (Cyanocobalamin) 15:05:39 CDT CPT-83727 Abx/Therapy Injection 15:05:39 CDT CPT-J3420 Vitamin B12 1000mcg (Cyanocobalamin) 13:50:45 CDT CPT-J3420 Vitamin B12 1000mcg (Cyanocobalamin) 08:48:55 CDT CPT-27039 Abx/Therapy Injection 08:48:55 CDT CPT-J3420 Vitamin B12 1000mcg (Cyanocobalamin) 09:14:54 CDT CPT-03111 Abx/Therapy Injection 09:14:54 CDT CPT-J3420 Vitamin B12 1000mcg (Cyanocobalamin) 09:06:06 CDT CPT-95579 Abx/Therapy Injection 09:06:06 CDT CPT-J3420 Vitamin B12 1000mcg (Cyanocobalamin) 09:49:14 CDT CPT-36067 Abx/Therapy Injection 09:49:14 CDT CPT-J3420 Vitamin B12 1000mcg (Cyanocobalamin) 09:10:30 [employer] BUILDER SUPERVISOR CPT-43435 Abx/Therapy Injection 09:10:30 WOOD BOAT BUILDER SUPERVISOR CPT-J3420 Vitamin B12 1000mcg (Cyanocobalamin) 09:11:07 WO[employer]AT BUILDER SUPERVISOR CPT-59690 Abx/Therapy Injection 09:11:07 WOOD BOAT BUILDER SUPERVISOR CPT-J3420 Vitamin B12 1000mcg (Cyanocobalamin) 09:57:03 WOOD BOAT BUILDER SUPERVISOR CPT-55381 Abx/Therapy Injection 09:57:03 WOOD BOAT BUILDER SUPERVISOR CPT-J3420 Vitamin B12 1000mcg (Cyanocobalamin) 09:23:21 WO[employer] BOAT BUILDER SUPERVISOR CPT-35808 Abx/Therapy Injection 09:23:21 WOOD BOAT BUILDER SUPERVISOR CPT-36052 Urine Dip (Floor Use Only) 20:21:44 WO[employer]AT BUILDER SUPERVISOR 201 02/12/11 CPT-40358 UA Dip Auto (Floor Use Only) 10:04:39 WO[employer]AT BUILDER SUPERVISOR 2 CPT-41560 Urine Dip (Floor Use Only) 13:27:28 [employer] BUILDER SUPERVISOR 201 02/12/01 CPT-83125 Bladder Scan 13:27:28 [employer] BUILDER SUPERVISOR CPT-63039 Abd single AP View 14:30:51 [employer]AT BUILDER SUPERVISOR CPT-OV Office Visit 10:15:43 CDT CPT-56883 Urine Dip (Floor Use Only) 17:22:21 CDT 201 02/09/02 CPT-21675 Bladder Scan 17:22:21 CDT
--- OUTSIDE RECORDS SUMMARY | 2020-05-05 11:15 | XMS REPORT | Clinical Summary ---
Author Author Talon, Jeri Wood Organization [employer] Address Unknown Phone Unavailable Allergies, Adverse Reactions, [...] Routine general medical examination at [facility] acility Sinusitis 461.9 Resolved Tesfaye [...] MD Routine general medical examination at [facility] Body Mass Index 21.0-21.9 Adult [...] bilateral 782.3 Active 201 07/07/09 León Kodi INSURANCE CLAIM AUDITOR Edema Peripheral neuropathy 356.9 Active Tesfaye lamb [...] night for r estless leg PRAMIPEXOLE DIHYDROCHLORIDE 02369026933 Active Laurence Ra duyen Active MIRAPEX 0.125 MG ORAL TABLET 1 po nightly PRAMIPEXOLE DIHYDROCHLORIDE 56040542917 No Longer Active Laurence Raida Active ROPINIROLE HCL 2 MG ORAL TABLET 1 po at hs ROPI NIROLE HCL 51364076982 No Longer Active Laurence Raida Active ROPINIROLE HCL 1 MG ORAL TABLET 1 tab po q hs ROPINIROLE HCL 25788310841 No Longer Active Laurence Raida Active ROPINIROLE HCL 0.5 MG ORAL TABLET 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 ROPINIROLE HCL 16392072816 No Longer Active MARCUS Panchal Active ROPINIROLE HCL 0.25 MG ORAL TABLET 1 TAB PO Q HS 05/31 ROPINIROLE HCL 30055951816 No Longer Active Tesfaye Sherman MD Ac tive PREDNISONE 20 MG ORAL TABLET 1 tab twice daily for 3 d ay, then one daily for three days PREDNISONE 05113215214 No Longer Active Tesfaye Sherman MD Active AMITRIPTYLINE HCL 50 MG ORAL TABLET 1 po q hs for sleep AMITRIPTYLINE HCL 01987817543 No Longer Active Tesfaye Sherman MD Active AMITRIPTYLINE HCL 10 MG ORAL TABLET 1 tablet nightly by mout h for neuropathy AMITRIPTYLINE HCL 63444609357 No Longer Active MARCUS Stapleton Active DIFLUCAN 100 MG ORAL TABLET 1 tablet by mouth daily 05/11 FLUCONAZOLE 75065104543 No Longer Active Tesfaye Sherman MD Acti ve BACTRIM DS 800-160 MG ORAL TABLET 1 tab by mouth twice daily 201 07/08/06 TRIMETHOPRIM-SULFAMETHOXAZOLE 84675567842 No Longer Active D patricia Sherman MD Active CLARITIN 10 MG ORAL TABLET Take one by mouth daily LORATADINE 78284829899 Active Tesfaye Sherman MD Active SUDAFED 12 HOUR 120 MG ORAL TABLET EXTENDED RELEASE 12 HOUR 1 pill twice daily if needed for congestion PSEUDOEPHEDRINE HCL 811890132 13 No Longer Active Tesfaye Sherman MD Active FENOFIBRATE 145 MG ORAL TABLET 1 by mouth daily FENOFIBRATE 39824341702 Active Laurence Dominguez Active GABAPENTIN 300 MG ORAL CAPSULE 1 po daily GABAP ENTIN 25151646459 No Longer Active Tesfaye Sherman MD Active HYDROCHLOROTHIAZIDE 12.5 MG ORAL CAPSULE 1 pill by mough daily 2 HYDROCHLOROTHIAZIDE 57068458189 No Longer Active León Mariee APRN Active VENLAFAXINE HCL 75 MG ORAL TABLET 1 am 1/2 at noon 201 07/07/09 VENLAFAXINE HCL 59758790876 No Longer Active León Mariee APRN Act trent DIFLUCAN 100 MG ORAL TABLET 1 tablet by mouth daily 20 19/02/09 FLUCONAZOLE 08493065592 No Longer Active León Kodi DUMASN Active DIFLUCAN 100 MG ORAL TABLET 1 tablet by mouth daily 20 19/02/09 FLUCONAZOLE 61606786967 No Longer Active León Mariee APRN Active OXYCODONE-ACETAMINOPHEN 5-325 MG ORAL TABLET Take one tablet by mouth every 6 hours 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 Use sparingly OXYCODONE-ACETAMINOPHEN 60714598980 Active Tesfaye villar MD Active CLONAZEPAM 0.5 MG ORAL TABLET Take 1/2 qam, and 1/2 qpm CLONAZEPAM 69897702683 Active Tesfaye Sherman MD Active PRELIEF 340 (65-50) MG (CA-P) ORAL TABLET CALCIUM GLYCEROPHOSPHATE 08443189238 No Longer Active Tesfaye Sherman MD Active SUDAFED 24 HOUR 240 MG ORAL TABLET EXTENDED RELEASE 24 HOUR 1 tab po daily PSEUDOEPHEDRINE HCL 72035979171 No Longer Active Raul Sherman MD Active RED YEAST RICE 600 MG ORAL CAPSULE 1 pill by mouth daily RED YEAST RICE EXTRACT 45344895294 No Longer Active Tesfaye Sherman MD Active REPHRESH PRO-B ORAL CAPSULE 1 tablet daily LACT OBACILLUS 52322288050 No Longer Active Tesfaye Sherman MD Active ABILIFY 2 MG ORAL TABLET 1 by mouth daily. MARIA ELENA PIPRAZOLE 89679904551 Active Tesfaye Sherman MD Active CYMBALTA 60 MG ORAL CAPSULE DELAYED RELEASE PARTICLES 1 cap by mouth daily for pain DULOXETINE HCL 83027970966 Active MARCUS Lindsay Active DIFLUCAN 100 MG ORAL TABLET 1 tablet by mouth daily 20 20/06/06 FLUCONAZOLE 34618344467 No Longer Active Tesfaye Sherman MD Acti ve PREDNISONE 20 MG ORAL TABLET 1 tablet by mouth twice d aily for 3 days, then 1 tablet daily for 3 days PREDNISONE 69367315662 No L onger Active Tesfaye Sherman MD Active BACTRIM DS 800-160 MG ORAL TABLET 1 tab by mouth twice daily 201 06/09/02 TRIMETHOPRIM-SULFAMETHOXAZOLE 57696654856 No Longer Active Fer Dominguez Active DIFLUCAN 100 MG ORAL TABLET 1 tablet by mouth daily 20 20/05/01 FLUCONAZOLE 21347342062 No Longer Active Tesfaye Sherman MD Acti ve ZITHROMAX 250 MG ORAL TABLET 2 po today, then 1 po q days 2-5 20 20/04/28 AZITHROMYCIN 81367054601 No Longer Active Tesfaye Sherman MD Active MECLIZINE HCL 25 MG ORAL TABLET one tab po qday prn dizziness 20 17/09/06 MECLIZINE HCL 67478470928 No Longer Active Tesfaye Sherman MD Active PROAIR HFA 108 (90 BASE) MCG/ACT INHALATION AEROSOL SO LUTION 1 puff every 6 hours as needed ALBUTEROL SULFATE 21388015042 No Long er Active Tesfaye Sherman MD Active PREDNISONE 20 MG ORAL TABLET 1 tab twice daily for 3 d ay, then one daily for three days PREDNISONE 73802642336 No Longer Active Tesfaye Sherman MD Active MECLIZINE HCL 25 MG ORAL TABLET one 4 times a day as needed for dizziness MECLIZINE HCL 67263556107 Active Tesfaye Sherman MD Active AMOXICILLIN 500 MG ORAL CAPSULE 1 cap by mouth three times a day AMOXICILLIN 39608941516 No Longer Active Laurence Dominguez Acti ve DIFLUCAN 100 MG ORAL TABLET 1 tablet by mouth daily 20 19/08/26 FLUCONAZOLE 87078452980 No Longer Active Tesfaye Sherman MD Acti ve BACTRIM DS 800-160 MG ORAL TABLET 1 tab by mouth twice daily 201 05/10/28 TRIMETHOPRIM-SULFAMETHOXAZOLE 70533558503 No Longer Active Fer Dominguez Active FOSAMAX 70 MG ORAL TABLET 1 po qweek. Take 30min prio r to first food/drink. Avoid lying down x 1 hour. ALENDRONATE SODIUM 80717303 144 No Longer Active Laurenceyohana Dominguez Active CYMBALTA 60 MG ORAL CAPSULE DELAYED RELEASE PARTICLES Take 1 tablet by mouth daily DULOXETINE HCL 22155423537 No Longer Active Edith Burch MD Active CYMBALTA 30 MG ORAL CAPSULE DELAYED RELEASE PARTICLES 1 cap by mouth daily with 60mg DULOXETINE HCL 11949952054 No Longer Active Jordan Burch MD Active FISH OIL 1000 MG ORAL CAPSULE DELAYED RELEASE 1 pill b y mouth daily for cholesterol OMEGA-3 FATTY ACIDS 37527640607 Active Cee Jaffe LPN Active DIFLUCAN 100 MG ORAL TABLET 1 tablet by mouth daily 19/03/05 FLUCONAZOLE 18389430513 No Longer Active Tesfaye Sherman MD Acti ve BACTRIM DS 800-160 MG ORAL TABLET 1 tab by mouth twice daily 201 05/06/28 TRIMETHOPRIM-SULFAMETHOXAZOLE 05701317118 No Longer Active Umer Sherman MD Active BACTRIM DS 800-160 MG ORAL TABLET 1 tab by mouth twice daily 201 05/04/15 TRIMETHOPRIM-SULFAMETHOXAZOLE 06675930200 No Longer Active Umer Sherman MD Active DIFLUCAN 150 MG ORAL TABLET 1 tablet by mouth daily 20 18/09/20 FLUCONAZOLE 55120246359 No Longer Active Tesfaye Sherman MD Acti ve BACTRIM DS 800-160 MG ORAL TABLET 1 tab by mouth twice daily 201 04/13/17 TRIMETHOPRIM-SULFAMETHOXAZOLE 28418706928 No Longer Active Umer Sherman MD Active CEFTIN 250 MG ORAL TABLET 1 tablet twice daily x 7 days CEFUROXIME AXETIL 71790528174 No Longer Active Tesfaye Sherman MD Active DIFLUCAN 100 MG ORAL TABLET 1 tablet by mouth every other da y for 2 doses FLUCONAZOLE 29663298452 No Longer Active Tesfaye barron MD Active DIFLUCAN 100 MG ORAL TABLET 1 tablet by mouth daily X 3 DAYS 201 04/09/01 FLUCONAZOLE 88105143238 No Longer Active Rj Ravi MIRTAZAPINE 15 MG ORAL TABLET 1/2 tab by mouth at bedtime. 03/13 MIRTAZAPINE 42781652610 No Longer Active Tesfaye Sherman MD Active BACTRIM DS 800-160 MG ORAL TABLET 1 tab by mouth twice daily 201 04/09/01 TRIMETHOPRIM-SULFAMETHOXAZOLE 93639714346 No Longer Active Umer Sherman MD Active PRAMIPEXOLE DIHYDROCHLORIDE 0.125 MG ORAL TABLET take 1 tablet po qhs for restless leg syndrome. PRAMIPEXOLE DIHYDROCHLORI DE 77384741788 No Longer Active Tesfaye Sherman MD Active MAGNESIUM 400 MG ORAL TABLET 1 tab po daily FELIX FAGAN 74280643485 Active Chelsea Cardenas APRN Active CETIRIZINE HCL 5 MG ORAL TABLET Take 1 tablet by mouth daily CETIRIZINE HCL 04469746101 No Longer Active Chelsea Cardenas APRN Activ e TRIMETHOPRIM 100 MG ORAL TABLET 1/2 qd TRIM ETHOPRIM 75692553349 No Longer Active Chelsea Cardenas APRN Active BACTRIM DS 800-160 MG ORAL TABLET 1 tab by mouth twice daily 201 04/04/11 TRIMETHOPRIM-SULFAMETHOXAZOLE 98992090409 No Longer Active Umer Sherman MD Active BACTRIM DS 800-160 MG ORAL TABLET 1 tab by mouth twice daily X 10 DAYS TRIMETHOPRIM-SULFAMETHOXAZOLE 25927454996 No Longer Active Tesfaye Sherman MD Active AMOXICILLIN 500 MG ORAL CAPSULE 1 cap by mouth three times a day AMOXICILLIN 41205024955 No Longer Active Adriana Arredondo, A A ctive B-12 1000 MCG ORAL LOZENGE 1 tab po daily CYANO COBALAMIN 89838697851 Active Tesfaye Sherman MD Active VITAMIN D3 2000 UNIT ORAL TABLET 1 daily, for vitamin D deficien cy CHOLECALCIFEROL 44442153043 No Longer Active Tesfaye Sherman MD Active TIZANIDINE HCL 2 MG ORAL TABLET take 1-2 tablet by mo [facility] every day at bedtime at 9pm PRN TIZANIDINE HCL 61267822100 Active Tesfaye hewitt MD Active ZITHROMAX 250 MG ORAL TABLET 2 po today, then 1 po q days 2-5 20 15/02/10 AZITHROMYCIN 29321669258 No Longer Active Tesfaye Sherman MD Active BACTRIM DS 800-160 MG ORAL TABLET 1 tab by mouth twice daily 201 03/03/23 TRIMETHOPRIM-SULFAMETHOXAZOLE 48399313757 No Longer Active Umer Sherman MD Active [facility] NIACIN FLUSH FREE 400-100 MG ORAL CAPSULE 1 daily NIACIN-INOSITOL 48968354883 Active Kayla Cooper MD Activ e DIFLUCAN 150 MG ORAL TABLET 1 qd FLUCONAZOL E 44394933300 No Longer Active Kayla Cooper MD Active FLUTICASONE PROPIONATE 50 MCG/ACT NASAL SUSPENSION 1 spray each nostril twice daily FLUTICASONE PROPIONATE 02091338702 Active D patricia Sherman MD Active LOVASTATIN 20 MG ORAL TABLET Take 1 tablet by mouth daily LOVASTATIN 61801004630 No Longer Active Tesfaye Sherman MD Acti ve MELOXICAM 7.5 MG ORAL TABLET 1 tablet by mouth daily 2 MELOXICAM 86476892767 No Longer Active Tesfaye Sherman MD Acti ve GABAPENTIN 300 MG ORAL CAPSULE Take two tablets by mouth every e vening GABAPENTIN 70322823013 No Longer Active Edith Burch MD A ctive BACLOFEN 10 MG ORAL TABLET Take one tablet by mouth three times a d ay BACLOFEN 67703793174 Active Kayla Cooper MD Active GABAPENTIN 300 MG ORAL CAPSULE Take two tablets by mouth every e vening GABAPENTIN 300 MG ORAL CAPSULE 842918 GABAPENTIN I nactive MELOXICAM 7.5 MG ORAL TABLET 1 tablet by mouth daily 2 MELOXICAM 7.5 MG ORAL TABLET 777715 MELOXICAM Inactive LOVASTATIN 20 MG ORAL TABLET Take 1 tablet by mouth daily LOVASTATIN 20 MG ORAL TABLET 007028 LOVASTATIN Inactive DIFLUCAN 150 MG ORAL TABLET 1 qd DIFLUCAN 150 MG ORAL TABLET 736510 FLUCONAZOLE Inactive VITAMIN D3 2000 UNIT ORAL TABLET 1 daily, for vitamin D deficien cy VITAMIN D3 2000 UNIT ORAL TABLET CHOLECALCIFEROL Inactive AMOXICILLIN 500 MG ORAL CAPSULE 1 cap by mouth three times a day AMOXICILLIN 500 MG ORAL CAPSULE 985637 AMOXICILLIN Inactive BACTRIM DS 800-160 MG ORAL TABLET 1 tab by mouth twice daily X 10 DAYS BACTRIM DS 800-160 MG ORAL TABLET 104907 TRIMETHOPRIM-SULFAMETHOXAZOLE Inactive TRIMETHOPRIM 100 MG ORAL TABLET 1/2 qd 7 TRIMETHOPRIM 100 MG ORAL TABLET 029149 TRIMETHOPRIM Inactive CETIRIZINE HCL 5 MG ORAL TABLET Take 1 tablet by mouth daily CETIRIZINE HCL 5 MG ORAL TABLET 2865097 CETIRIZINE HCL Inactive PRAMIPEXOLE DIHYDROCHLORIDE 0.125 MG ORAL TABLET take 1 tablet po qhs for restless leg syndrome. PRAMIPEXOLE DIHYD ROCHLORIDE 0.125 MG ORAL TABLET 738631 PRAMIPEXOLE DIHYDROCHLORIDE Inactive MIRTAZAPINE 15 MG ORAL TABLET 1/2 tab by mouth at bedtime. 03/13 MIRTAZAPINE 15 MG ORAL TABLET 321125 MIRTAZAPINE In active DIFLUCAN 100 MG ORAL TABLET 1 tablet by mouth daily X 3 DAYS 201 04/09/01 DIFLUCAN 100 MG ORAL TABLET 356208 FLUCONAZOLE Inac tive DIFLUCAN 100 MG ORAL TABLET 1 tablet by mouth every other da y for 2 doses DIFLUCAN 100 MG ORAL TABLET 482141 FLUCONAZOLE Inactive CEFTIN 250 MG ORAL TABLET 1 tablet twice daily x 7 days CEFTIN 250 MG ORAL TABLET CEFUROXIME AXETIL Inactive CYMBALTA 30 MG ORAL CAPSULE DELAYED RELEASE PARTICLES 1 cap by mouth daily with 60mg CYMBALTA 30 MG ORAL CAPSULE DELAYED RELEASE PARTICLES 368804 DULOXETINE HCL Inactive CYMBALTA 60 MG ORAL CAPSULE DELAYED RELEASE PARTICLES Take 1 tablet by mouth daily CYMBALTA 60 MG ORAL CAPSULE DELAYED RELEA SE PARTICLES 344702 DULOXETINE HCL Inactive FOSAMAX 70 MG ORAL TABLET 1 po qweek. Take 30min prio r to first food/drink. Avoid lying down x 1 hour. FOSAMAX 70 MG ORAL TA BLET 585203 ALENDRONATE SODIUM Inactive DIFLUCAN 100 MG ORAL TABLET 1 tablet by mouth daily 19/08/26 DIFLUCAN 100 MG ORAL TABLET 096719 FLUCONAZOLE Inactive PREDNISONE 20 MG ORAL TABLET 1 tab twice daily for 3 d ay, then one daily for three days PREDNISONE 20 MG ORAL TABLET 414686 PREDNIS ONE Inactive PROAIR HFA 108 (90 BASE) MCG/ACT INHALATION AEROSOL SO LUTION 1 puff every 6 hours as needed PROAIR HFA 108 (90 B ASE) MCG/ACT INHALATION AEROSOL SOLUTION ALBUTEROL SULFATE Inactive MECLIZINE HCL 25 MG ORAL TABLET one tab po qday prn dizziness 20 17/09/06 MECLIZINE HCL 25 MG ORAL TABLET 325082 MECLIZINE HCL Inactive PREDNISONE 20 MG ORAL TABLET 1 tablet by mouth twice d aily for 3 days, then 1 tablet daily for 3 days PREDNISONE 20 MG ORAL TA BLET 856714 PREDNISONE Inactive DIFLUCAN 100 MG ORAL TABLET 1 tablet by mouth daily 20/06/06 DIFLUCAN 100 MG ORAL TABLET 176186 FLUCONAZOLE Inactive REPHRESH PRO-B ORAL CAPSULE 1 tablet daily REPHRESH PRO-B ORAL CAPSULE LACTOBACILLUS Inactive RED YEAST RICE 600 MG ORAL CAPSULE 1 pill by mouth daily RED YEAST RICE 600 MG ORAL CAPSULE 953084 RED YEAST RICE EXTRACT In active SUDAFED [...] 07/07/09 VENLAFAXINE HCL 75 MG ORAL TABLET 388494 VENLAFAXINE HCL Inacti ve GABAPENTIN 300 MG ORAL CAPSULE 1 po daily GABAPENTIN 300 MG ORAL CAPSULE 729992 GABAPENTIN Inactive SUDAFED 12 HOUR 120 MG ORAL TABLET EXTENDED RELEASE 12 HOUR 1 pill twice daily if needed for congestion SUDAFED 12 HOUR 120 MG ORAL TABLET EXTENDED RELEASE 12 HOUR PSEUDOEPHEDRINE HCL Inactive AMITRIPTYLINE HCL 10 MG ORAL TABLET 1 tablet nightly by mout h for neuropathy AMITRIPTYLINE HCL 10 MG ORAL TABLET 005910 AMITRIPTYLINE HCL Inactive AMITRIPTYLINE HCL 50 MG ORAL TABLET 1 po q hs for sleep AMITRIPTYLINE HCL 50 MG ORAL TABLET 633645 AMITRIPTYLINE HCL Inac tive PREDNISONE 20 MG ORAL TABLET 1 tab twice daily for 3 d ay, then one daily for three days PREDNISONE 20 MG ORAL TABLET 613942 PREDNIS ONE Inactive ROPINIROLE HCL 0.25 MG ORAL TABLET 1 TAB PO Q HS 05/31 ROPINIROLE HCL 0.25 MG ORAL TABLET 626629 ROPINIROLE HCL Inact trent ROPINIROLE HCL 0.5 MG ORAL TABLET 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 ROPINIROLE HCL 0.5 MG ORAL TABLET 599677 ROPINIR OLE HCL Inactive ROPINIROLE HCL 1 MG ORAL TABLET 1 tab po q hs ROPINIROLE HCL 1 MG ORAL TABLET 626732 ROPINIROLE HCL Inactive ROPINIROLE HCL 2 MG ORAL TABLET 1 po at hs 7 ROPINIROLE HCL 2 MG ORAL TABLET 506300 ROPINIROLE HCL Inactive MIRAPEX 0.125 MG ORAL TABLET 1 po nightly MIRAPEX 0.125 MG ORAL TABLET 233417 PRAMIPEXOLE DIHYDROCHLORIDE Inactive BACTRIM DS 800-160 MG ORAL TABLET 1 tab by mouth twice daily 201 03/03/23 BACTRIM DS 800-160 MG ORAL TABLET 709781 TRIMETHOPRIM-SULFAMETHOXAZOLE Inactive ZITHROMAX 250 MG ORAL TABLET 2 po today, then 1 po q days 2-5 20 15/02/10 ZITHROMAX 250 MG ORAL TABLET 085350 AZITHROMYCIN [place] ctive BACTRIM DS 800-160 MG ORAL TABLET [...] a day AMOXICILLIN 500 MG ORAL CAPSULE 442099 AMOXICILLIN Inactive ZITHROMAX 250 MG ORAL TABLET 2 po today, then 1 po q days 2-5 20 20/04/28 ZITHROMAX 250 MG ORAL TABLET 820360 AZITHROMYCIN [place] ctive DIFLUCAN 100 MG ORAL TABLET 1 [...] 07/08/06 BACTRIM DS 800-160 MG ORAL TABLET 685996 TRIMETHOPRIM-SULFAMETHOXAZOLE Inactive DIFLUCAN 100 MG ORAL TABLET 1 tablet by mouth daily 20 21/03/11 DIFLUCAN 100 MG ORAL TABLET 19760711 FLUCONAZOLE Inactive Advance Directives Directive Description Start Date PERMISSION TO SHARE DISCUSSED WITH PATIENT -- NO DECISION MADE DURABLE POWER OF 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 FOR HEALTHCARE DISCUSED WITH PATIENT -- [...] Magnesium - Chemistry cholesterol, serum 196 mg/dL 725-705 0086/07/30 triglyceride, serum, fasting 86 mg/dL 30-200 HDL cholesterol, serum 41 mg/dL 32-60 LDL cholesterol, serum 138 mg/dL 0-130 sodium, serum 140 mmol/L 615-843 3298/07/30 carbon dioxide, venous blood 28.6 mmol/L 21.0-32 [...] Negative mg/dL Negative sodium, serum 139 mmol/L 220-056 3933/11/07 carbon dioxide, venous blood 28.4 mmol/L 21.0-32 [...] ative Encounters Code Encounter Date Provider Facility CPT-14172 [id number] Vst-Est Level IV 14:08:03 C BRIDGET Sherman MD [facility] CPT-52737 Level 3 Est. Patient 18:06:36 CDT Tesfaye pearson MD [facility] CPT-42326 [id number] Vst-Est Level IV 17:09:34 C BRIDGET Sherman MD [facility] CPT-08880 Level 3 Est. Patient 17:27:08 CDT León Portillo david [facility] CPT-75082 [id number] Vst-Est Level IV 14:00:[address] Tesfaye Sherman MD [facility] CPT-87847 24099-Pgh Vst-Est Level IV 19:27:[address] Tesfaye Sherman MD [facility] CPT-34190 [id number] Vst-Est Level IV 10:41:41 C BRIDGET Sherman MD [facility] CPT-31893 [id number] Vst-Est Level III 09:40:56 CDT Tesfaye Sherman MD [facility] CPT-52144 Level 4 Est. Patient 22:18:12 CDT Tesfaye pearson MD [facility] CPT-73892 Level 4 Est. Patient 14:44:33 COOKER CASING Tesfaye pearson MD [facility] CPT-97548 Level 4 Est. Patient 13:55:29 COOKER CASING Tesfaye pearson MD [facility] CPT-69933 Level 4 Est. Patient 17:07:34 COOKER CASING Tesfaye pearson MD [facility] CPT-74999 Level 4 Est. Patient 13:56:54 CDT Tesfaye pearson MD [facility] CPT-61966 Level 4 Est. Patient 13:24:25 CDT Chelsea sanz [facility] CPT-10036 Level 4 Est. Patient 09:14:56 CDT Tesfaye pearson MD [facility] CPT-81073 Level 4 Est. Patient 18:40:25 COOKER CASING Tesfaye pearson MD [facility] CPT-79084 Level 4 Est. Patient 18:13:07 COOKER CASING Tesfaye pearson MD [facility]-36999 Level 3 Est. Patient 10:46:32 CDT Rj cotto DO [facility]-15400 Level 4 Est. Patient 20:19:25 CDT Tesfaye pearson MD [facility]-12193 Level 3 Est. Patient 09:07:31 CDT Tesfaye pearson MD [facility]-66888 Level 4 Est. Patient 13:12:56 CDT Tesfaye pearson MD [facility]-80472 Level 4 Est. Patient 21:24:55 COOKER CASING Tesfaye pearson MD [facility]-28240 Level 3 Est. Patient 13:45:04 COOKER CASING Tesfaye pearson MD [facility] CPT-38455 Level 4 Est. Patient 13:50:45 CDT Tesfaye pearson MD [facility] CPT-56636 Level 3 Est. Patient 10:16:10 CDT Tesfaye pearson MD [facility] CPT-67004 Level 3 Est. Patient 16:36:07 COOKER CASING Kayla jameson MD [facility]-32991 Level 4 Est. Patient 16:00:14 COOKER CASING Tesfaye pearson MD [facility]-02590 Level 4 Est. Patient 11:02:24 COOKER CASING Tesfaye pearson MD [facility]-09897 Level 3 Est. Patient 20:21:43 COOKER CASING Kayla jameson MD [facility]-26661 Level 3 Est. Patient 13:27:28 COOKER CASING Kayla jameson MD [facility]-03156 Level 4 Est. Patient 15:57:17 COOKER CASING Tesfaye pearson MD [facility] CPT-89141 Level 3 New Patient 13:25:47 CDT Tesfaye kidd MD [facility] CPT-77941 Level 3 New Patient 17:22:21 CDT Kayla angel MD [facility] Procedures Code Procedure Name Date Entry Date Standard Desc ription CPT-43541 Bone Density - XRAY USE ONLY 15:21:33 CDT 2 CPT-52485 Venipuncture Draw Fee 16:12:22 CDT CPT-G0439 Subsequent Annual Wellness Exam 18:06:36 CDT CPT-G0439 Subsequent Annual Wellness Exam 22:18:11 CDT CPT-44172 Bone Density - XRAY USE ONLY 11:43:58 CDT 2 CPT-20220 Bone Density - XRAY USE ONLY 10:05:16 CDT 2 CPT-19469 Prv Med New Pt 40-64 yrs 18:19:25 CDT 2016 CPT-37205 Foot, right, comp min 3V - XRAY USE ONLY 10:38:34 CDT CPT-G0439 Subsequent Annual Wellness Exam 13:55:04 CDT CPT-G0438 Initial Annual Wellness Exam 11:23:17 CD T CPT-J2930 Solu Medrol 125 mg (Methyl Prednisolone Sodium Succinate) 17:29:12 COOKER CASING CPT-51815 Abx/Therapy Injection 17:29:11 COOKER CASING CPT-J2930 Solu Medrol 125 mg (Methyl Prednisolone Sodium Succinate) 12:34:38 COOKER CASING CPT-J3420 Vitamin B12 1000mcg (Cyanocobalamin) 09:12:55 CDT CPT-J3420 Vitamin B12 1000mcg (Cyanocobalamin) 16:28:06 COOKER CASING CPT-14416 Venipuncture Draw Fee 08:39:53 CDT CPT-J3420 Vitamin B12 1000mcg (Cyanocobalamin) 08:46:22 CDT CPT-51928 Abx/Therapy Injection 08:46:22 CDT CPT-J3420 Vitamin B12 1000mcg (Cyanocobalamin) 08:41:26 CDT CPT-91703 Abx/Therapy Injection 08:41:26 CDT CPT-J3420 Vitamin B12 1000mcg (Cyanocobalamin) 08:57:15 CDT CPT-50536 Abx/Therapy Injection 08:57:15 CDT CPT-J3420 Vitamin B12 1000mcg (Cyanocobalamin) 10:59:03 CDT CPT-47243 Abx/Therapy Injection 10:59:03 CDT CPT-J3420 Vitamin B12 1000mcg (Cyanocobalamin) 15:05:39 CDT CPT-93387 Abx/Therapy Injection 15:05:39 CDT CPT-J3420 Vitamin B12 1000mcg (Cyanocobalamin) 13:50:45 CDT CPT-J3420 Vitamin B12 1000mcg (Cyanocobalamin) 08:48:55 CDT CPT-14431 Abx/Therapy Injection 08:48:55 CDT CPT-J3420 Vitamin B12 1000mcg (Cyanocobalamin) 09:14:54 CDT CPT-65118 Abx/Therapy Injection 09:14:54 CDT CPT-J3420 Vitamin B12 1000mcg (Cyanocobalamin) 09:06:06 CDT CPT-20082 Abx/Therapy Injection 09:06:06 CDT CPT-J3420 Vitamin B12 1000mcg (Cyanocobalamin) 09:49:14 CDT CPT-48054 Abx/Therapy Injection 09:49:14 CDT CPT-J3420 Vitamin B12 1000mcg (Cyanocobalamin) 09:10:30 COOKER CASING CPT-07673 Abx/Therapy Injection 09:10:30 COOKER CASING CPT-J3420 Vitamin B12 1000mcg (Cyanocobalamin) 09:11:07 COOKER CASING CPT-79845 Abx/Therapy Injection 09:11:07 COOKER CASING CPT-J3420 Vitamin B12 1000mcg (Cyanocobalamin) 09:57:03 COOKER CASING CPT-25902 Abx/Therapy Injection 09:57:03 COOKER CASING CPT-J3420 Vitamin B12 1000mcg (Cyanocobalamin) 09:23:21 COOKER CASING CPT-36813 Abx/Therapy Injection 09:23:21 COOKER CASING CPT-29261 Urine Dip (Floor Use Only) 20:21:44 COOKER CASING 201 02/12/11 CPT-91635 UA Dip Auto (Floor Use Only) 10:04:39 COOKER CASING 2 CPT-65715 Urine Dip (Floor Use Only) 13:27:28 COOKER CASING 201 02/12/01 CPT-69148 Bladder Scan 13:27:28 COOKER CASING CPT-78942 Abd single AP View 14:30:51 COOKER CASING CPT-OV Office Visit 10:15:43 CDT CPT-44073 Urine Dip (Floor Use Only) 17:22:21 CDT 201 02/09/02 CPT-80465 Bladder Scan 17:22:21 CDT
[2020-05-05 11:16] LABS: HEMOGLOBIN 16.8 G/DL (11.5-16.0); MEAN PLATELET VOLUME 9.7 FL (7.4-10.4); RED CELL DISTRIBUTION WIDTH 13.5 % (10.0-14.5)
--- OUTSIDE RECORDS SUMMARY | 2020-05-05 11:16 | XMS REPORT | Clinical Summary ---
Author Author Talon, Jeri Wood Organization [employer] Address Unknown Phone Unavailable Allergies, Adverse Reactions, [...] Sherman MD Routine general medical examination at [facility] acility Sinusitis 461.9 Resolved Tesfaye Sherman MD [...] MD Routine general medical examination at a [facility] Body Mass Index 21.0-21.9 Adult Refinement 2017 Tesfaye Sherman MD Body Mass Index between 19-24, adult BMI 22-22.9 Refinement Tesfaye Sherman MD Body Mass Index between 19-24, adult BMI 23-23.9 Refinement León Mairee APRN Body Mass Index between 19-24, adult [...] Tesfaye Sherman MD Dysuria High risk meds fpc use V58.6 Active Tesfaye Sherman MD Long-term (current) drug use Yeast infection 112.9 Inactive Tesfaye Sherman MD Candidiasis of unspecified site Upper respiratory infection 465.9 Inactive Tesfaye Sherman MD Acute upper respiratory infections of un specified site Lower extremity edema, bilateral 782.3 Active 201 07/07/09 León Kodi TANBARK PEELER Edema Peripheral neuropathy 356.9 Active Tesfaye lamb [...] Name NDC Status Provider Patient Instruction MIRAPEX 0.125 MG ORAL TABLET 1 po nightly PRAMIPEXOLE DIHYDROCHLORIDE 00891687115 Active Laurence Raida Active ROPINIROLE HCL 2 MG ORAL TABLET 1 po at hs ROPI NIROLE HCL 69647829035 No Longer Active Laurence Raida Active ROPINIROLE HCL 1 MG ORAL TABLET 1 tab po q hs ROPINIROLE HCL 80609817202 No Longer Active Laurence Raida Active ROPINIROLE HCL 0.5 MG ORAL TABLET 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 ROPINIROLE HCL 83720046133 No Longer Active MARCUS Panchal Active ROPINIROLE HCL 0.25 MG ORAL TABLET 1 TAB PO Q HS 05/31 ROPINIROLE HCL 24283897419 No Longer Active Tesfaye Sherman MD Ac tive PREDNISONE 20 MG ORAL TABLET 1 tab twice daily for 3 d ay, then one daily for three days PREDNISONE 66050344968 No Longer Active Tesfaye Sherman MD Active AMITRIPTYLINE HCL 50 MG ORAL TABLET 1 po q hs for sleep AMITRIPTYLINE HCL 60224835034 No Longer Active Tesfaye Sherman MD Active AMITRIPTYLINE HCL 10 MG ORAL TABLET 1 tablet nightly by mout h for neuropathy AMITRIPTYLINE HCL 61686525198 No Longer Active MARCUS Stapleton Active DIFLUCAN 100 MG ORAL TABLET 1 tablet by mouth daily 20 21/03/11 FLUCONAZOLE 30609279428 No Longer Active Tesfaye Sherman MD Acti ve BACTRIM DS 800-160 MG ORAL TABLET 1 tab by mouth twice daily 201 07/08/06 TRIMETHOPRIM-SULFAMETHOXAZOLE 95041830146 No Longer Active Umer Sherman MD Active CLARITIN 10 MG ORAL TABLET Take one by mouth daily LORATADINE 90037168164 Active Tesfaye Sherman MD Active SUDAFED 12 HOUR 120 MG ORAL TABLET EXTENDED RELEASE 12 HOUR 1 pill twice daily if needed for congestion PSEUDOEPHEDRINE HCL 442768795 13 No Longer Active Tesfaye Sherman MD Active FENOFIBRATE 145 MG ORAL TABLET 1 by mouth daily FENOFIBRATE 81180194980 Active Laurence Dominguez Active GABAPENTIN 300 MG ORAL CAPSULE 1 po daily GABAP ENTIN 76988724684 No Longer Active Tesfaye Sherman MD Active HYDROCHLOROTHIAZIDE 12.5 MG ORAL CAPSULE 1 pill by mough daily 2 HYDROCHLOROTHIAZIDE 44047866131 No Longer Active León Mariee APRN Active VENLAFAXINE HCL 75 MG ORAL TABLET 1 am 1/ at noon 201 07/07/09 VENLAFAXINE HCL 30540720081 No Longer Active León Mariee APRN Act trent DIFLUCAN 100 MG ORAL TABLET 1 tablet by mouth daily 20 19/02/09 FLUCONAZOLE 81223303651 No Longer Active León Kodi TANBARK PEELER Active DIFLUCAN 100 MG ORAL TABLET 1 tablet by mouth daily 20 19/02/09 FLUCONAZOLE 22106304608 No Longer Active León Mariee APRN Active OXYCODONE-ACETAMINOPHEN 5-325 MG ORAL TABLET Take one tablet by mouth every 6 hours 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 Use sparingly OXYCODONE-ACETAMINOPHEN 05335058417 Active Tesfaye villar MD Active CLONAZEPAM 0.5 MG ORAL TABLET Take 1/2 qam, and 1/2 qpm CLONAZEPAM 08028819298 Active Tesfaye Sherman MD Active PRELIEF 340 (65-50) MG (CA-P) ORAL TABLET CALCIUM GLYCEROPHOSPHATE 79974171507 No Longer Active Tesfaye Sherman MD Active SUDAFED 24 HOUR 240 MG ORAL TABLET EXTENDED RELEASE 24 HOUR 1 tab po daily PSEUDOEPHEDRINE HCL 53818011927 No Longer Active Raul Sherman MD Active RED YEAST RICE 600 MG ORAL CAPSULE 1 pill by mouth daily RED YEAST RICE EXTRACT 76004829161 No Longer Active Tesfaye Sherman MD Active REPHRESH PRO-B ORAL CAPSULE 1 tablet daily LACT OBACILLUS 50822544748 No Longer Active Tesfaye Sherman MD Active ABILIFY 2 MG ORAL TABLET 1 by mouth daily. MARIA ELENA PIPRAZOLE 02587831987 Active Tesfaye Sherman MD Active CYMBALTA 60 MG ORAL CAPSULE DELAYED RELEASE PARTICLES 1 cap by mouth daily for pain DULOXETINE HCL 58991610196 Active MARCUS Lindsay Active DIFLUCAN 100 MG ORAL TABLET 1 tablet by mouth daily 20 20/06/06 FLUCONAZOLE 10166737766 No Longer Active Tesfaye Sherman MD Acti ve PREDNISONE 20 MG ORAL TABLET 1 tablet by mouth twice d aily for 3 days, then 1 tablet daily for 3 days PREDNISONE 34464018159 No L onger Active Tesfaye Sherman MD Active BACTRIM DS 800-160 MG ORAL TABLET 1 tab by mouth twice daily 201 06/09/02 TRIMETHOPRIM-SULFAMETHOXAZOLE 24001577595 No Longer Active Fer Dominguez Active DIFLUCAN 100 MG ORAL TABLET 1 tablet by mouth daily 20 20/05/01 FLUCONAZOLE 63970852937 No Longer Active Tesfaye Sherman MD Acti ve ZITHROMAX 250 MG ORAL TABLET 2 po today, then 1 po q days 2-5 20 20/04/28 AZITHROMYCIN 36556552167 No Longer Active Tesfaye Sherman MD Active MECLIZINE HCL 25 MG ORAL TABLET one tab po qday prn dizziness 20 17/09/06 MECLIZINE HCL 35666038234 No Longer Active Tesfaye Sherman MD Active PROAIR HFA 108 (90 BASE) MCG/ACT INHALATION AEROSOL SO LUTION 1 puff every 6 hours as needed ALBUTEROL SULFATE 44416581840 No Long er Active Tesfaye Sherman MD Active PREDNISONE 20 MG ORAL TABLET 1 tab twice daily for 3 d ay, then one daily for three days PREDNISONE 64985402730 No Longer Active Tesfaey Sherman MD Active MECLIZINE HCL 25 MG ORAL TABLET one 4 times a day as needed for dizziness MECLIZINE HCL 47618473623 Active Tesfaye Sherman MD Active AMOXICILLIN 500 MG ORAL CAPSULE 1 cap by mouth three times a day AMOXICILLIN 27661120846 No Longer Active Laurence Raida Acti ve DIFLUCAN 100 MG ORAL TABLET 1 tablet by mouth daily 20 19/08/26 FLUCONAZOLE 80180495419 No Longer Active Tesfaye Sherman MD Acti ve BACTRIM DS 800-160 MG ORAL TABLET 1 tab by mouth twice daily 201 05/10/28 TRIMETHOPRIM-SULFAMETHOXAZOLE 19354297667 No Longer Active Fer Dominguez Active FOSAMAX 70 MG ORAL TABLET 1 po qweek. Take 30min prio r to first food/drink. Avoid lying down x 1 hour. ALENDRONATE SODIUM 07203176 144 No Longer Active Laurence Dominguez Active CYMBALTA 60 MG ORAL CAPSULE DELAYED RELEASE PARTICLES Take 1 tablet by mouth daily DULOXETINE HCL 31395207760 No Longer Active Edith Burch MD Active CYMBALTA 30 MG ORAL CAPSULE DELAYED RELEASE PARTICLES 1 cap by mouth daily with 60mg DULOXETINE HCL 41771215230 No Longer Active Jordan Burch MD Active FISH OIL 1000 MG ORAL CAPSULE DELAYED RELEASE 1 pill b y mouth daily for cholesterol OMEGA-3 FATTY ACIDS 78605704657 Active Cee Jaffe LPN Active DIFLUCAN 100 MG ORAL TABLET 1 tablet by mouth daily 20 19/03/05 FLUCONAZOLE 78905336975 No Longer Active Tesfaye Sherman MD Acti ve BACTRIM DS 800-160 MG ORAL TABLET 1 tab by mouth twice daily 201 05/06/28 TRIMETHOPRIM-SULFAMETHOXAZOLE 69969890864 No Longer Active Umer Sherman MD Active BACTRIM DS 800-160 MG ORAL TABLET 1 tab by mouth twice daily 201 05/04/15 TRIMETHOPRIM-SULFAMETHOXAZOLE 95091844980 No Longer Active Umer Sherman MD Active DIFLUCAN 150 MG ORAL TABLET 1 tablet by mouth daily 20 18/09/20 FLUCONAZOLE 65122794327 No Longer Active Tesfaye Sherman MD Acti ve BACTRIM DS 800-160 MG ORAL TABLET 1 tab by mouth twice daily 201 04/13/17 TRIMETHOPRIM-SULFAMETHOXAZOLE 54611863086 No Longer Active Umer Sherman MD Active CEFTIN 250 MG ORAL TABLET 1 tablet twice daily x 7 days CEFUROXIME AXETIL 89524696028 No Longer Active Tesfaye Sherman MD Active DIFLUCAN 100 MG ORAL TABLET 1 tablet by mouth every other da y for 2 doses FLUCONAZOLE 86436810992 No Longer Active Tesfaye barron MD Active DIFLUCAN 100 MG ORAL TABLET 1 tablet by mouth daily X 3 DAYS 201 04/09/01 FLUCONAZOLE 52539783607 No Longer Active Rj Lyons tive MIRTAZAPINE 15 MG ORAL TABLET 1/2 tab by mouth at bedtime. 03/13 MIRTAZAPINE 91170953819 No Longer Active Tesfaye Sherman MD Active BACTRIM DS 800-160 MG ORAL TABLET 1 tab by mouth twice daily 201 04/09/01 TRIMETHOPRIM-SULFAMETHOXAZOLE 23097045245 No Longer Active Umer Sherman MD Active PRAMIPEXOLE DIHYDROCHLORIDE 0.125 MG ORAL TABLET take 1 tablet po qhs for restless leg syndrome. PRAMIPEXOLE DIHYDROCHLORI DE 63785697171 No Longer Active Tesfaye Sherman MD Active MAGNESIUM 400 MG ORAL TABLET 1 tab po daily FELIX FAGAN 02953982147 Active Chelsea Cardenas APRN Active CETIRIZINE HCL 5 MG ORAL TABLET Take 1 tablet by mouth daily CETIRIZINE HCL 88200327492 No Longer Active Chelsea Cardenas APRN Activ e TRIMETHOPRIM 100 MG ORAL TABLET 1/2 qd TRIM ETHOPRIM 86486715682 No Longer Active Chelsea Cardenas APRN Active BACTRIM DS 800-160 MG ORAL TABLET 1 tab by mouth twice daily 201 04/04/11 TRIMETHOPRIM-SULFAMETHOXAZOLE 42250611934 No Longer Active Umer Sherman MD Active BACTRIM DS 800-160 MG ORAL TABLET 1 tab by mouth twice daily X 10 DAYS TRIMETHOPRIM-SULFAMETHOXAZOLE 92520386893 No Longer Active Tesfaye Sherman MD Active AMOXICILLIN 500 MG ORAL CAPSULE 1 cap by mouth three times a day AMOXICILLIN 31346089766 No Longer Active Adriana Arredondo, A A ctive B-12 1000 MCG ORAL LOZENGE 1 tab po daily CYANO COBALAMIN 91517988354 Active Tesfaye Sherman MD Active VITAMIN D3 2000 UNIT ORAL TABLET 1 daily, for vitamin D deficien cy CHOLECALCIFEROL 39296850315 No Longer Active Tesfaye Sherman MD Active TIZANIDINE HCL 2 MG ORAL TABLET take 1-2 tablet by mo [facility] every day at bedtime at 9pm PRN TIZANIDINE HCL 18549437718 Active Tesfaye hewitt MD Active ZITHROMAX 250 MG ORAL TABLET 2 po today, then 1 po q days 2-5 20 15/02/10 AZITHROMYCIN 15514480806 No Longer Active Tesfaye Sherman MD Active BACTRIM DS 800-160 MG ORAL TABLET 1 tab by mouth twice daily 201 03/03/23 TRIMETHOPRIM-SULFAMETHOXAZOLE 72121910338 No Longer Active Umer Sherman MD Active [facility] NIACIN FLUSH FREE 400-100 MG ORAL CAPSULE 1 daily NIACIN-INOSITOL 01696299028 Active Kayla Cooper MD Activ e DIFLUCAN 150 MG ORAL TABLET 1 qd FLUCONAZOL E 67953022257 No Longer Active Kayla Cooper MD Active FLUTICASONE PROPIONATE 50 MCG/ACT NASAL SUSPENSION 1 spray each nostril twice daily FLUTICASONE PROPIONATE 81267078377 Active D patricia Sheramn MD Active LOVASTATIN 20 MG ORAL TABLET Take 1 tablet by mouth daily LOVASTATIN 77743249855 No Longer Active Tesfaye Sherman MD Acti ve MELOXICAM 7.5 MG ORAL TABLET 1 tablet by mouth daily 2 MELOXICAM 38357894351 No Longer Active Tesfaye Sherman MD Acti ve GABAPENTIN 300 MG ORAL CAPSULE Take two tablets by mouth every e vening GABAPENTIN 36772388849 No Longer Active Edith Burch MD A ctive BACLOFEN 10 MG ORAL TABLET Take one tablet by mouth three times a d ay BACLOFEN 99377751335 Active Kayla Cooper MD Active GABAPENTIN 300 MG ORAL CAPSULE Take two tablets by mouth every e vening GABAPENTIN 300 MG ORAL CAPSULE 598682 GABAPENTIN I nactive MELOXICAM 7.5 MG ORAL TABLET 1 tablet by mouth daily 2 MELOXICAM 7.5 MG ORAL TABLET 969740 MELOXICAM Inactive LOVASTATIN 20 MG ORAL TABLET Take 1 tablet by mouth daily LOVASTATIN 20 MG ORAL TABLET 352648 LOVASTATIN Inactive DIFLUCAN 150 MG ORAL TABLET 1 qd DIFLUCAN 150 MG ORAL TABLET 902679 FLUCONAZOLE Inactive VITAMIN D3 2000 UNIT ORAL TABLET 1 daily, for vitamin D deficien cy VITAMIN D3 2000 UNIT ORAL TABLET CHOLECALCIFEROL Inactive AMOXICILLIN 500 MG ORAL CAPSULE 1 cap by mouth three times a day AMOXICILLIN 500 MG ORAL CAPSULE 208855 AMOXICILLIN Inactive BACTRIM DS 800-160 MG ORAL TABLET 1 tab by mouth twice daily X 10 DAYS BACTRIM DS 800-160 MG ORAL TABLET 288208 TRIMETHOPRIM-SULFAMETHOXAZOLE Inactive TRIMETHOPRIM 100 MG ORAL TABLET 1/2 qd 7 TRIMETHOPRIM 100 MG ORAL TABLET 19830102 TRIMETHOPRIM Inactive CETIRIZINE HCL 5 MG ORAL TABLET Take 1 tablet by mouth daily CETIRIZINE HCL 5 MG ORAL TABLET 8880484 CETIRIZINE HCL Inactive PRAMIPEXOLE DIHYDROCHLORIDE 0.125 MG ORAL TABLET take 1 tablet po qhs for restless leg syndrome. PRAMIPEXOLE DIHYD ROCHLORIDE 0.125 MG ORAL TABLET 393695 PRAMIPEXOLE DIHYDROCHLORIDE Inactive MIRTAZAPINE 15 MG ORAL TABLET 1/2 tab by mouth at bedtime. 03/13 MIRTAZAPINE 15 MG ORAL TABLET 719314 MIRTAZAPINE In active DIFLUCAN 100 MG ORAL TABLET 1 tablet by mouth daily X 3 DAYS 201 04/09/01 DIFLUCAN 100 MG ORAL TABLET 534954 FLUCONAZOLE Inac tive DIFLUCAN 100 MG ORAL TABLET 1 tablet by mouth every other da y for 2 doses DIFLUCAN 100 MG ORAL TABLET 366393 FLUCONAZOLE Inactive CEFTIN 250 MG ORAL TABLET 1 tablet twice daily x 7 days CEFTIN 250 MG ORAL TABLET CEFUROXIME AXETIL Inactive CYMBALTA 30 MG ORAL CAPSULE DELAYED RELEASE PARTICLES 1 cap by mouth daily with 60mg CYMBALTA 30 MG ORAL CAPSULE DELAYED RELEASE PARTICLES 314886 DULOXETINE HCL Inactive CYMBALTA 60 MG ORAL CAPSULE DELAYED RELEASE PARTICLES Take 1 tablet by mouth daily CYMBALTA 60 MG ORAL CAPSULE DELAYED RELEA SE PARTICLES 469283 DULOXETINE HCL Inactive FOSAMAX 70 MG ORAL TABLET 1 po qweek. Take 30min prio r to first food/drink. Avoid lying down x 1 hour. FOSAMAX 70 MG ORAL TA BLET 467742 ALENDRONATE SODIUM Inactive DIFLUCAN 100 MG ORAL TABLET 1 tablet by mouth daily 19/08/26 DIFLUCAN 100 MG ORAL TABLET 613490 FLUCONAZOLE Inactive PREDNISONE 20 MG ORAL TABLET 1 tab twice daily for 3 d ay, then one daily for three days PREDNISONE 20 MG ORAL TABLET 038800 PREDNIS ONE Inactive PROAIR HFA 108 (90 BASE) MCG/ACT INHALATION AEROSOL SO LUTION 1 puff every 6 hours as needed PROAIR HFA 108 (90 B ASE) MCG/ACT INHALATION AEROSOL SOLUTION ALBUTEROL SULFATE Inactive MECLIZINE HCL 25 MG ORAL TABLET one tab po qday prn dizziness 20 17/09/06 MECLIZINE HCL 25 MG ORAL TABLET 359290 MECLIZINE HCL Inactive PREDNISONE 20 MG ORAL TABLET 1 tablet by mouth twice d aily for 3 days, then 1 tablet daily for 3 days PREDNISONE 20 MG ORAL TA BLET 850679 PREDNISONE Inactive DIFLUCAN 100 MG ORAL TABLET 1 tablet by mouth daily 20 20/06/06 DIFLUCAN 100 MG ORAL TABLET 912349 FLUCONAZOLE Inactive REPHRESH PRO-B ORAL CAPSULE 1 tablet daily REPHRESH PRO-B ORAL CAPSULE LACTOBACILLUS Inactive RED YEAST RICE 600 MG ORAL CAPSULE 1 pill by mouth daily RED YEAST RICE 600 MG ORAL CAPSULE 160619 RED YEAST RICE EXTRACT In active SUDAFED [...] 20 19/02/09 DIFLUCAN 100 MG ORAL TABLET 131113 FLUCONAZOLE Inactive DIFLUCAN 100 MG ORAL TABLET 1 tablet by mouth daily 20 19/02/09 DIFLUCAN 100 MG ORAL TABLET 162049 FLUCONAZOLE Inactive VENLAFAXINE HCL 75 MG ORAL TABLET 1 am 1/2 at noon 201 07/07/09 VENLAFAXINE HCL 75 MG ORAL TABLET 140550 VENLAFAXINE HCL Inacti ve GABAPENTIN 300 MG ORAL CAPSULE 1 po daily GABAPENTIN 300 MG ORAL CAPSULE 043866 GABAPENTIN Inactive SUDAFED 12 HOUR 120 MG ORAL TABLET EXTENDED RELEASE 12 HOUR 1 pill twice daily if needed for congestion SUDAFED 12 HOUR 120 MG ORAL TABLET EXTENDED RELEASE 12 HOUR PSEUDOEPHEDRINE HCL Inactive AMITRIPTYLINE HCL 10 MG ORAL TABLET 1 tablet nightly by mout h for neuropathy AMITRIPTYLINE HCL 10 MG ORAL TABLET 568573 AMITRIPTYLINE HCL Inactive AMITRIPTYLINE HCL 50 MG ORAL TABLET 1 po q hs for sleep AMITRIPTYLINE HCL 50 MG ORAL TABLET 031988 AMITRIPTYLINE HCL Inac tive PREDNISONE 20 MG ORAL TABLET 1 tab twice daily for 3 d ay, then one daily for three days PREDNISONE 20 MG ORAL TABLET 623598 PREDNIS ONE Inactive ROPINIROLE HCL 0.25 MG ORAL TABLET 1 TAB PO Q HS 05/31 ROPINIROLE HCL 0.25 MG ORAL TABLET 323084 ROPINIROLE HCL Inact trent ROPINIROLE HCL 0.5 MG ORAL TABLET 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 ROPINIROLE HCL 0.5 MG ORAL TABLET 039878 ROPINIR OLE HCL Inactive ROPINIROLE HCL 1 MG ORAL TABLET 1 tab po q hs ROPINIROLE HCL 1 MG ORAL TABLET 463916 ROPINIROLE HCL Inactive ROPINIROLE HCL 2 MG ORAL TABLET 1 po at hs 7 ROPINIROLE HCL 2 MG ORAL TABLET 193567 ROPINIROLE HCL Inactive BACTRIM DS 800-160 MG ORAL TABLET 1 tab by mouth twice daily 201 03/03/23 BACTRIM DS 800-160 MG ORAL TABLET 965710 TRIMETHOPRIM-SULFAMETHOXAZOLE Inactive ZITHROMAX 250 MG ORAL TABLET 2 po today, then 1 po q days 2-5 20 15/02/10 ZITHROMAX 250 MG ORAL TABLET 255205 AZITHROMYCIN Mayela ctive BACTRIM DS 800-160 MG [...] a day AMOXICILLIN 500 MG ORAL CAPSULE 835782 AMOXICILLIN Inactive ZITHROMAX 250 MG ORAL TABLET 2 po today, then 1 po q days 2-5 20 20/04/28 ZITHROMAX 250 MG ORAL TABLET 618430 AZITHROMYCIN Mayela ctive DIFLUCAN 100 MG ORAL [...] 20 21/03/11 DIFLUCAN 100 MG ORAL TABLET 664699 FLUCONAZOLE Inactive Advance Directives Directive Description Start Date PERMISSION TO SHARE DISCUSSED WITH PATIENT -- NO DECISION MADE DURABLE POWER OF PROCESS IMPROVEMENT CONSULTANT FOR HEALTHCARE DISCUSED WITH PATIENT -- FULL [...] Magnesium - Chemistry cholesterol, serum 196 mg/dL [phone]/07/30 triglyceride, serum, fasting 86 mg/dL 30-200 HDL cholesterol, serum 41 mg/dL 32-60 LDL cholesterol, serum 138 mg/dL 0-130 sodium, serum 140 mmol/L 192-945 3304/07/30 carbon dioxide, venous blood 28.6 mmol/L 21.0-32 [...] Negative mg/dL Negative sodium, serum 139 mmol/L 566-875 2847/11/07 carbon dioxide, venous blood 28.4 mmol/L 21.0-32 [...] ative Encounters Code Encounter Date Provider Facility CPT-28877 [id number] Vst-Est Level IV 14:08:03 C BRIDGET Sherman MD [facility] CPT-60722 Level 3 Est. Patient 18:06:36 CDT Tesfaye pearson MD [facility] CPT-92782 [id number] Vst-Est Level IV 17:09:34 C BRIDGET Sherman MD [facility] CPT-85318 Level 3 Est. Patient 17:27:08 CDT León Tin dle [facility]-46124 [id number] Vst-Est Level IV 14:00:[address] Tesfaye Sherman MD [facility]-49262 [id number] Vst-Est Level IV 19:27:[address] Tesfaye Sherman MD [facility]-30062 [id number] Vst-Est Level IV 10:41:41 C BRIDGET Sherman MD [facility]-19812 [id number] Vst-Est Level III 09:40:56 CDT Tesfaye Sherman MD [facility] CPT-99491 Level 4 Est. Patient 22:18:12 CDT Tesfaye pearson MD [facility] CPT-51239 Level 4 Est. Patient 14:44:33 CAD ADMINISTRATOR Tesfaye pearson MD [facility] CPT-88974 Level 4 Est. Patient 13:55:29 CAD ADMINISTRATOR Tesfaye pearson MD [facility] CPT-57694 Level 4 Est. Patient 17:07:34 CAD ADMINISTRATOR Tesfaye pearsno MD [facility] CPT-51952 Level 4 Est. Patient 13:56:54 CDT Tesfaye pearson MD [facility] CPT-77955 Level 4 Est. Patient 13:24:25 CDT Chelsea sanz [facility] CPT-88931 Level 4 Est. Patient 09:14:56 CDT Tesfaye pearson MD [facility] CPT-19748 Level 4 Est. Patient 18:40:25 CAD ADMINISTRATOR Tesfaye pearson MD [facility] CPT-20879 Level 4 Est. Patient 18:13:07 CAD ADMINISTRATOR Tesfaye pearson MD [facility] CPT-88619 Level 3 Est. Patient 10:46:32 CDT Rj cotto DO [facility] CPT-92242 Level 4 Est. Patient 20:19:25 CDT Tesfaye pearson MD [facility] CPT-33537 Level 3 Est. Patient 09:07:31 CDT Tesfaye pearson MD [facility] CPT-13391 Level 4 Est. Patient 13:12:56 CDT Tesfaye pearson MD [facility] CPT-12914 Level 4 Est. Patient 21:24:55 CAD ADMINISTRATOR Tesfaye pearson MD [facility]-21812 Level 3 Est. Patient 13:45:04 CAD ADMINISTRATOR Tesfaye pearson MD [facility] CPT-07933 Level 4 Est. Patient 13:50:45 CDT Tesfaye pearson MD [facility] CPT-02845 Level 3 Est. Patient 10:16:10 CDT Tesfaye pearson MD [facility] CPT-09827 Level 3 Est. Patient 16:36:07 CAD ADMINISTRATOR Kayla jameson MD [facility] CPT-97182 Level 4 Est. Patient 16:00:14 CAD ADMINISTRATOR Tesfaye pearson MD [facility] CPT-57011 Level 4 Est. Patient 11:02:24 CAD ADMINISTRATOR Tesfaye pearson MD [facility] CPT-44507 Level 3 Est. Patient 20:21:43 CAD ADMINISTRATOR Kayla jameson MD [facility] CPT-81224 Level 3 Est. Patient 13:27:28 CAD ADMINISTRATOR Kayla jameson MD [facility] CPT-27641 Level 4 Est. Patient 15:57:17 CAD ADMINISTRATOR Tesfaye pearson MD [facility] CPT-01908 Level 3 New Patient 13:25:47 CDT Tesfaye kidd MD [facility] CPT-19478 Level 3 New Patient 17:22:21 CDT Kayla angel MD [facility] Procedures Code Procedure Name Date Entry Date Standard Desc ription CPT-46111 Venipuncture Draw Fee 16:12:22 CDT CPT-G0439 Subsequent Annual Wellness Exam 18:06:36 CDT CPT-G0439 Subsequent Annual Wellness Exam 22:18:11 CDT CPT-58935 Bone Density - XRAY USE ONLY 11:43:58 CDT 2 CPT-15823 Bone Density - XRAY USE ONLY 10:05:16 CDT 2 CPT-52552 Prv Med New Pt 40-64 yrs 18:19:25 CDT 2016 CPT-11143 Foot, right, comp min 3V - XRAY USE ONLY 10:38:34 CDT CPT-G0439 Subsequent Annual Wellness Exam 13:55:04 CDT CPT-G0438 Initial Annual Wellness Exam 11:23:17 CD T CPT-J2930 Solu Medrol 125 mg (Methyl Prednisolone Sodium Succinate) 17:29:12 CAD ADMINISTRATOR CPT-20121 Abx/Therapy Injection 17:29:11 CAD ADMINISTRATOR CPT-J2930 Solu Medrol 125 mg (Methyl Prednisolone Sodium Succinate) 12:34:38 CAD ADMINISTRATOR CPT-J3420 Vitamin B12 1000mcg (Cyanocobalamin) 09:12:55 CDT CPT-J3420 Vitamin B12 1000mcg (Cyanocobalamin) 16:28:06 CAD ADMINISTRATOR CPT-05175 Venipuncture Draw Fee 08:39:53 CDT CPT-J3420 Vitamin B12 1000mcg (Cyanocobalamin) 08:46:22 CDT CPT-12515 Abx/Therapy Injection 08:46:22 CDT CPT-J3420 Vitamin B12 1000mcg (Cyanocobalamin) 08:41:26 CDT CPT-24060 Abx/Therapy Injection 08:41:26 CDT CPT-J3420 Vitamin B12 1000mcg (Cyanocobalamin) 08:57:15 CDT CPT-56266 Abx/Therapy Injection 08:57:15 CDT CPT-J3420 Vitamin B12 1000mcg (Cyanocobalamin) 10:59:03 CDT CPT-72921 Abx/Therapy Injection 10:59:03 CDT CPT-J3420 Vitamin B12 1000mcg (Cyanocobalamin) 15:05:39 CDT CPT-12735 Abx/Therapy Injection 15:05:39 CDT CPT-J3420 Vitamin B12 1000mcg (Cyanocobalamin) 13:50:45 CDT CPT-J3420 Vitamin B12 1000mcg (Cyanocobalamin) 08:48:55 CDT CPT-43600 Abx/Therapy Injection 08:48:55 CDT CPT-J3420 Vitamin B12 1000mcg (Cyanocobalamin) 09:14:54 CDT CPT-86858 Abx/Therapy Injection 09:14:54 CDT CPT-J3420 Vitamin B12 1000mcg (Cyanocobalamin) 09:06:06 CDT CPT-95778 Abx/Therapy Injection 09:06:06 CDT CPT-J3420 Vitamin B12 1000mcg (Cyanocobalamin) 09:49:14 CDT CPT-34060 Abx/Therapy Injection 09:49:14 CDT CPT-J3420 Vitamin B12 1000mcg (Cyanocobalamin) 09:10:30 CAD ADMINISTRATOR CPT-31280 Abx/Therapy Injection 09:10:30 CAD ADMINISTRATOR CPT-J3420 Vitamin B12 1000mcg (Cyanocobalamin) 09:11:07 CAD ADMINISTRATOR CPT-23405 Abx/Therapy Injection 09:11:07 CAD ADMINISTRATOR CPT-J3420 Vitamin B12 1000mcg (Cyanocobalamin) 09:57:03 CAD ADMINISTRATOR CPT-25569 Abx/Therapy Injection 09:57:03 CAD ADMINISTRATOR CPT-J3420 Vitamin B12 1000mcg (Cyanocobalamin) 09:23:21 CAD ADMINISTRATOR CPT-21959 Abx/Therapy Injection 09:23:21 CAD ADMINISTRATOR CPT-38460 Urine Dip (Floor Use Only) 20:21:44 CAD ADMINISTRATOR 201 02/12/11 CPT-84637 UA Dip Auto (Floor Use Only) 10:04:39 CAD ADMINISTRATOR 2 CPT-92156 Urine Dip (Floor Use Only) 13:27:28 CAD ADMINISTRATOR 201 02/12/01 CPT-53455 Bladder Scan 13:27:28 CAD ADMINISTRATOR CPT-29920 Abd single AP View 14:30:51 CAD ADMINISTRATOR CPT-OV Office Visit 10:15:43 CDT CPT-32727 Urine Dip (Floor Use Only) 17:22:21 CDT 201 02/09/02 CPT-94662 Bladder Scan 17:22:21 CDT
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
--- OUTSIDE RECORDS SUMMARY | 2020-05-05 11:17 | XMS REPORT | Clinical Summary ---
Author Author Talon, Jeri Wood Organization [employer] Address Unknown Phone Unavailable Allergies, Adverse Reactions, [...] examination at formerly [facility] acility Sinusitis 461.9 Resolved Tesfaye Sherman MD [...] MD Routine general medical examination at a [facility] acility Body Mass Index 21.0-21.9 [...] bilateral 782.3 Active 201 07/07/09 León Kodi CRAB BUTCHER Edema Peripheral neuropathy 356.9 Active Tesfaye lamb [...] Inactive Wilner Sherman MD Vertigo ICD-780.4 Inactive Tesfaey Sherman MD 201 07/05/07 Body Mass Index 20.0-20.9 Adult Inactiv jim Shah RMA Dysuria ICD-788.1 Inactive Tesfaye Sherman MD 201 07/05/07 Yeast infection ICD-112.9 Inactive Tesfaye lamb MD Upper respiratory infection ICD-465.9 Inactive Tesfaye Sherman MD Medication List Medication Instructions Start Date Stop Date Generic Name ND Status Provider Patient Instruction ROPINIROLE HCL 2 MG ORAL TABLET 1 po at hs ROPI NIROLE HCL 56655709414 Active Laurence Raida Active ROPINIROLE HCL 1 MG ORAL TABLET 1 tab po q hs ROPINIROLE HCL 30189999539 No Longer Active Laurence Raida Active ROPINIROLE HCL 0.5 MG ORAL TABLET 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 ROPINIROLE HCL 47956090394 No Longer Active MARCUS Panchal Active ROPINIROLE HCL 0.25 MG ORAL TABLET 1 TAB PO Q HS 05/31 ROPINIROLE HCL 93275349729 No Longer Active Tesfaye Sherman MD Ac tive PREDNISONE 20 MG ORAL TABLET 1 tab twice daily for 3 d ay, then one daily for three days PREDNISONE 37720738199 No Longer Active Tesfaye Sherman MD Active AMITRIPTYLINE HCL 50 MG ORAL TABLET 1 po q hs for sleep AMITRIPTYLINE HCL 56158254471 No Longer Active Tesfaye Sherman MD Active AMITRIPTYLINE HCL 10 MG ORAL TABLET 1 tablet nightly by mout h for neuropathy AMITRIPTYLINE HCL 71451980980 No Longer Active MARCUS Stapleton Active DIFLUCAN 100 MG ORAL TABLET 1 tablet by mouth daily 20 21/03/11 FLUCONAZOLE 61388345813 No Longer Active Tesfaye Sherman MD Acti ve BACTRIM DS 800-160 MG ORAL TABLET 1 tab by mouth twice daily 201 07/08/06 TRIMETHOPRIM-SULFAMETHOXAZOLE 56268412482 No Longer Active Umer Sherman MD Active CLARITIN 10 MG ORAL TABLET Take one by mouth daily LORATADINE 61458595612 Active Tesfaye Sherman MD Active SUDAFED 12 HOUR 120 MG ORAL TABLET EXTENDED RELEASE 12 HOUR 1 pill twice daily if needed for congestion PSEUDOEPHEDRINE HCL 063007307 13 No Longer Active Tesfaye Sherman MD Active FENOFIBRATE 145 MG ORAL TABLET 1 by mouth daily FENOFIBRATE 27637074637 Active Laurence Dominguez Active GABAPENTIN 300 MG ORAL CAPSULE 1 po daily GABAP ENTIN 55620464483 No Longer Active Tesfaye Sherman MD Active HYDROCHLOROTHIAZIDE 12.5 MG ORAL CAPSULE 1 pill by mough daily 2 HYDROCHLOROTHIAZIDE 16484999244 No Longer Active León Mariee APRN Active VENLAFAXINE HCL 75 MG ORAL TABLET 1 am 1/2 at noon 201 07/07/09 VENLAFAXINE HCL 87861857421 No Longer Active León Mariee APRN Act trent DIFLUCAN 100 MG ORAL TABLET 1 tablet by mouth daily 20 19/02/09 FLUCONAZOLE 57764760352 No Longer Active León Kodi CRAB BUTCHER Active DIFLUCAN 100 MG ORAL TABLET 1 tablet by mouth daily 19/02/09 FLUCONAZOLE 95259511111 No Longer Active Leónkash Mariee APRN Active OXYCODONE-ACETAMINOPHEN 5-325 MG ORAL TABLET Take one tablet by mouth every 6 hours 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 Use sparingly OXYCODONE-ACETAMINOPHEN 35764895436 Active Tesfaye villar MD Active CLONAZEPAM 0.5 MG ORAL TABLET Take 1/2 qam, and 1/2 qpm CLONAZEPAM 85905811171 Active Tesfaye Sherman MD Active PRELIEF 340 (65-50) MG (CA-P) ORAL TABLET CALCIUM GLYCEROPHOSPHATE 98240847610 No Longer Active Tesfaye Sherman MD Active SUDAFED 24 HOUR 240 MG ORAL TABLET EXTENDED RELEASE 24 HOUR 1 tab po daily PSEUDOEPHEDRINE HCL 26135840139 No Longer Active Raul Sherman MD Active RED YEAST RICE 600 MG ORAL CAPSULE 1 pill by mouth daily RED YEAST RICE EXTRACT 40330718824 No Longer Active Tesfaye Sherman MD Active REPHRESH PRO-B ORAL CAPSULE 1 tablet daily LACT OBACILLUS 73898009343 No Longer Active Tesfaye Sherman MD Active ABILIFY 2 MG ORAL TABLET 1 by mouth daily. MARIA ELENA PIPRAZOLE 82232644615 Active Tesfaye Sherman MD Active CYMBALTA 60 MG ORAL CAPSULE DELAYED RELEASE PARTICLES 1 cap by mouth daily for pain DULOXETINE HCL 46117958249 Active MARCUS Lindsay Active DIFLUCAN 100 MG ORAL TABLET 1 tablet by mouth daily 20 20/06/06 FLUCONAZOLE 39012921994 No Longer Active Tesfaye Sherman MD Acti ve PREDNISONE 20 MG ORAL TABLET 1 tablet by mouth twice d aily for 3 days, then 1 tablet daily for 3 days PREDNISONE 66342430054 No L onger Active Tesfaye Sherman MD Active BACTRIM DS 800-160 MG ORAL TABLET 1 tab by mouth twice daily 201 06/09/02 TRIMETHOPRIM-SULFAMETHOXAZOLE 62382580795 No Longer Active Fer Dominguez Active DIFLUCAN 100 MG ORAL TABLET 1 tablet by mouth daily 20 20/05/01 FLUCONAZOLE 30626493451 No Longer Active Tesfaye Sherman MD Acti ve ZITHROMAX 250 MG ORAL TABLET 2 po today, then 1 po q days 2-5 20 20/04/28 AZITHROMYCIN 15741031105 No Longer Active Tesfaye Sherman MD Active MECLIZINE HCL 25 MG ORAL TABLET one tab po qday prn dizziness 20 17/09/06 MECLIZINE HCL 20711663879 No Longer Active Tesfaye Sherman MD Active PROAIR HFA 108 (90 BASE) MCG/ACT INHALATION AEROSOL SO LUTION 1 puff every 6 hours as needed ALBUTEROL SULFATE 23464954389 No Long er Active Tesfaye Sherman MD Active PREDNISONE 20 MG ORAL TABLET 1 tab twice daily for 3 d ay, then one daily for three days PREDNISONE 53832118553 No Longer Active Tesfaye Sherman MD Active MECLIZINE HCL 25 MG ORAL TABLET one 4 times a day as needed for dizziness MECLIZINE HCL 09824838764 Active Tesfaye Sherman MD Active AMOXICILLIN 500 MG ORAL CAPSULE 1 cap by mouth three times a day AMOXICILLIN 75892266401 No Longer Active Laurence Raida Acti ve DIFLUCAN 100 MG ORAL TABLET 1 tablet by mouth daily 20 19/08/26 FLUCONAZOLE 17717797070 No Longer Active Tesfaye Sherman MD Acti ve BACTRIM DS 800-160 MG ORAL TABLET 1 tab by mouth twice daily 201 05/10/28 TRIMETHOPRIM-SULFAMETHOXAZOLE 96860562829 No Longer Active Fer Dominguez Active FOSAMAX 70 MG ORAL TABLET 1 po qweek. Take 30min prio r to first food/drink. Avoid lying down x 1 hour. ALENDRONATE SODIUM 84812455 144 No Longer Active Laurenceyohana Dominguez Active CYMBALTA 60 MG ORAL CAPSULE DELAYED RELEASE PARTICLES Take 1 tablet by mouth daily DULOXETINE HCL 67756656205 No Longer Active Edith Burch MD Active CYMBALTA 30 MG ORAL CAPSULE DELAYED RELEASE PARTICLES 1 cap by mouth daily with 60mg DULOXETINE HCL 40500273892 No Longer Active Jordan Burch MD Active FISH OIL 1000 MG ORAL CAPSULE DELAYED RELEASE 1 pill b y mouth daily for cholesterol OMEGA-3 FATTY ACIDS 06761489508 Active Cee Jaffe LPN Active DIFLUCAN 100 MG ORAL TABLET 1 tablet by mouth daily 20 19/03/05 FLUCONAZOLE 92644171618 No Longer Active Tesfaye Sherman MD Acti ve BACTRIM DS 800-160 MG ORAL TABLET 1 tab by mouth twice daily 201 05/06/28 TRIMETHOPRIM-SULFAMETHOXAZOLE 23742865152 No Longer Active Umer Sherman MD Active BACTRIM DS 800-160 MG ORAL TABLET 1 tab by mouth twice daily 201 05/04/15 TRIMETHOPRIM-SULFAMETHOXAZOLE 40158853676 No Longer Active Umer Sherman MD Active DIFLUCAN 150 MG ORAL TABLET 1 tablet by mouth daily 20 18/09/20 FLUCONAZOLE 37029949005 No Longer Active Tesfaye Sherman MD Acti ve BACTRIM DS 800-160 MG ORAL TABLET 1 tab by mouth twice daily 201 04/13/17 TRIMETHOPRIM-SULFAMETHOXAZOLE 92547358971 No Longer Active Umer Sherman MD Active CEFTIN 250 MG ORAL TABLET 1 tablet twice daily x 7 days CEFUROXIME AXETIL 84419928462 No Longer Active Tesfaye Sherman MD Active DIFLUCAN 100 MG ORAL TABLET 1 tablet by mouth every other da y for 2 doses FLUCONAZOLE 77436929946 No Longer Active Tesfaye barron MD Active DIFLUCAN 100 MG ORAL TABLET 1 tablet by mouth daily X 3 DAYS 201 04/09/01 FLUCONAZOLE 23809134166 No Longer Active Rj Lyons tive MIRTAZAPINE 15 MG ORAL TABLET 1/2 tab by mouth at bedtime. 03/13 MIRTAZAPINE 65274460630 No Longer Active Tesfaye Sherman MD Active BACTRIM DS 800-160 MG ORAL TABLET 1 tab by mouth twice daily 201 04/09/01 TRIMETHOPRIM-SULFAMETHOXAZOLE 11307419073 No Longer Active Umer Sherman MD Active PRAMIPEXOLE DIHYDROCHLORIDE 0.125 MG ORAL TABLET take 1 tablet po qhs for restless leg syndrome. PRAMIPEXOLE DIHYDROCHLORI DE 06523686429 No Longer Active Tesfaye Sherman MD Active MAGNESIUM 400 MG ORAL TABLET 1 tab po daily MAGNE SIUM 19235171650 Active Chelsea Cardenas APRN Active CETIRIZINE HCL 5 MG ORAL TABLET Take 1 tablet by mouth daily CETIRIZINE HCL 77178209206 No Longer Active Chelsea Cardenas APRN Activ e TRIMETHOPRIM 100 MG ORAL TABLET 1/2 qd TRIM ETHOPRIM 71724087466 No Longer Active Chelsea Cardenas APRN Active BACTRIM DS 800-160 MG ORAL TABLET 1 tab by mouth twice daily 201 04/04/11 TRIMETHOPRIM-SULFAMETHOXAZOLE 79698309444 No Longer Active Umer Sherman MD Active BACTRIM DS 800-160 MG ORAL TABLET 1 tab by mouth twice daily X 10 DAYS TRIMETHOPRIM-SULFAMETHOXAZOLE 47007899127 No Longer Active Tesfaye Sherman MD Active AMOXICILLIN 500 MG ORAL CAPSULE 1 cap by mouth three times a day AMOXICILLIN 56010315306 No Longer Active Adriana Arredondo, [facility] A ctive B-12 1000 MCG ORAL LOZENGE 1 tab po daily CYANO COBALAMIN 71410168473 Active Tesfaye Sherman MD Active VITAMIN D3 2000 UNIT ORAL TABLET 1 daily, for vitamin D deficien cy CHOLECALCIFEROL 65206340049 No Longer Active Tesfaye Sherman MD Active TIZANIDINE HCL 2 MG ORAL TABLET take 1-2 tablet by [facility] every day at bedtime at 9pm PRN TIZANIDINE HCL 24339167901 Active Tesfaye hewitt MD Active ZITHROMAX 250 MG ORAL TABLET 2 po today, then 1 po q days 2-5 20 15/02/10 AZITHROMYCIN 97556178867 No Longer Active Tesfaye Sherman MD Active BACTRIM DS 800-160 MG ORAL TABLET 1 tab by mouth twice daily 201 03/03/23 TRIMETHOPRIM-SULFAMETHOXAZOLE 75651294603 No Longer Active Umer Sherman MD Active [facility] NIACIN FLUSH FREE 400-100 MG ORAL CAPSULE 1 daily NIACIN-INOSITOL 40603670317 Active Kayla Cooper MD Activ e DIFLUCAN 150 MG ORAL TABLET 1 qd FLUCONAZOL E 04714664470 No Longer Active Kayla Cooper MD Active FLUTICASONE PROPIONATE 50 MCG/ACT NASAL SUSPENSION 1 spray each nostril twice daily FLUTICASONE PROPIONATE 81789637255 Active D patricia Sherman MD Active LOVASTATIN 20 MG ORAL TABLET Take 1 tablet by mouth daily LOVASTATIN 42195838683 No Longer Active Tesfaye Sherman MD Acti ve MELOXICAM 7.5 MG ORAL TABLET 1 tablet by mouth daily 2 MELOXICAM 17566858831 No Longer Active Tesfaye Sherman MD Acti ve GABAPENTIN 300 MG ORAL CAPSULE Take two tablets by mouth every e vening GABAPENTIN 63930359560 No Longer Active Edith Burch MD A ctive BACLOFEN 10 MG ORAL TABLET Take one tablet by mouth three times a d ay BACLOFEN 15186673217 Active J John Cooper MD Active GABAPENTIN 300 MG ORAL CAPSULE Take two tablets by mouth every e vening GABAPENTIN 300 MG ORAL CAPSULE 447933 GABAPENTIN I nactive MELOXICAM 7.5 MG ORAL TABLET 1 tablet by mouth daily 2 MELOXICAM 7.5 MG ORAL TABLET 396234 MELOXICAM Inactive LOVASTATIN 20 MG ORAL TABLET Take 1 tablet by mouth daily LOVASTATIN 20 MG ORAL TABLET 518750 LOVASTATIN Inactive DIFLUCAN 150 MG ORAL TABLET 1 qd DIFLUCAN 150 MG ORAL TABLET 157857 FLUCONAZOLE Inactive VITAMIN D3 2000 UNIT ORAL TABLET 1 daily, for vitamin D deficien cy VITAMIN D3 2000 UNIT ORAL TABLET CHOLECALCIFEROL Inactive AMOXICILLIN 500 MG ORAL CAPSULE 1 cap by mouth three times a day AMOXICILLIN 500 MG ORAL CAPSULE 635985 AMOXICILLIN Inactive BACTRIM DS 800-160 MG ORAL TABLET 1 tab by mouth twice daily X 10 DAYS BACTRIM DS 800-160 MG ORAL TABLET 997223 TRIMETHOPRIM-SULFAMETHOXAZOLE Inactive TRIMETHOPRIM 100 MG ORAL TABLET 1/2 qd 7 TRIMETHOPRIM 100 MG ORAL TABLET 736711 TRIMETHOPRIM Inactive CETIRIZINE HCL 5 MG ORAL TABLET Take 1 tablet by mouth daily CETIRIZINE HCL 5 MG ORAL TABLET 4029961 CETIRIZINE HCL Inactive PRAMIPEXOLE DIHYDROCHLORIDE 0.125 MG ORAL TABLET take 1 tablet po qhs for restless leg syndrome. PRAMIPEXOLE DIHYD ROCHLORIDE 0.125 MG ORAL TABLET 737455 PRAMIPEXOLE DIHYDROCHLORIDE Inactive MIRTAZAPINE 15 MG ORAL TABLET 1/2 tab by mouth at bedtime. 03/13 MIRTAZAPINE 15 MG ORAL TABLET 429914 MIRTAZAPINE In active DIFLUCAN 100 MG ORAL TABLET 1 tablet by mouth daily X 3 DAYS 201 04/09/01 DIFLUCAN 100 MG ORAL TABLET 930859 FLUCONAZOLE Inac tive DIFLUCAN 100 MG ORAL TABLET 1 tablet by mouth every other da y for 2 doses DIFLUCAN 100 MG ORAL TABLET 339445 FLUCONAZOLE Inactive CEFTIN 250 MG ORAL TABLET 1 tablet twice daily x 7 days CEFTIN 250 MG ORAL TABLET CEFUROXIME AXETIL Inactive CYMBALTA 30 MG ORAL CAPSULE DELAYED RELEASE PARTICLES 1 cap by mouth daily with 60mg CYMBALTA 30 MG ORAL CAPSULE DELAYED RELEASE PARTICLES 294176 DULOXETINE HCL Inactive CYMBALTA 60 MG ORAL CAPSULE DELAYED RELEASE PARTICLES Take 1 tablet by mouth daily CYMBALTA 60 MG ORAL CAPSULE DELAYED RELEA SE PARTICLES 152396 DULOXETINE HCL Inactive FOSAMAX 70 MG ORAL TABLET 1 po qweek. Take 30min prio r to first food/drink. Avoid lying down x 1 hour. FOSAMAX 70 MG ORAL TA BLET 355661 ALENDRONATE SODIUM Inactive DIFLUCAN 100 MG ORAL TABLET 1 tablet by mouth daily 20 19/08/26 DIFLUCAN 100 MG ORAL TABLET 358451 FLUCONAZOLE Inactive PREDNISONE 20 MG ORAL TABLET 1 tab twice daily for 3 d ay, then one daily for three days PREDNISONE 20 MG ORAL TABLET 621825 PREDNIS ONE Inactive PROAIR HFA 108 (90 BASE) MCG/ACT INHALATION AEROSOL SO LUTION 1 puff every 6 hours as needed PROAIR HFA 108 (90 B ASE) MCG/ACT INHALATION AEROSOL SOLUTION ALBUTEROL SULFATE Inactive MECLIZINE HCL 25 MG ORAL TABLET one tab po qday prn dizziness 20 17/09/06 MECLIZINE HCL 25 MG ORAL TABLET 173130 MECLIZINE HCL Inactive PREDNISONE 20 MG ORAL TABLET 1 tablet by mouth twice d aily for 3 days, then 1 tablet daily for 3 days PREDNISONE 20 MG ORAL TA BLET 201198 PREDNISONE Inactive DIFLUCAN 100 MG ORAL TABLET 1 tablet by mouth daily 20 20/06/06 DIFLUCAN 100 MG ORAL TABLET 820605 FLUCONAZOLE Inactive REPHRESH PRO-B ORAL CAPSULE 1 tablet daily REPHRESH PRO-B ORAL CAPSULE LACTOBACILLUS Inactive RED YEAST RICE 600 MG ORAL CAPSULE 1 pill by mouth daily RED YEAST RICE 600 MG ORAL CAPSULE 256959 RED YEAST RICE EXTRACT In active SUDAFED [...] 20 19/02/09 DIFLUCAN 100 MG ORAL TABLET 172386 FLUCONAZOLE Inactive DIFLUCAN 100 MG ORAL TABLET 1 tablet by mouth daily 20 19/02/09 DIFLUCAN 100 MG ORAL TABLET 902869 FLUCONAZOLE Inactive VENLAFAXINE HCL 75 MG ORAL TABLET 1 am 1/2 at noon 201 07/07/09 VENLAFAXINE HCL 75 MG ORAL TABLET 146538 VENLAFAXINE HCL Inacti ve GABAPENTIN 300 MG ORAL CAPSULE 1 po daily GABAPENTIN 300 MG ORAL CAPSULE 262859 GABAPENTIN Inactive SUDAFED 12 HOUR 120 MG ORAL TABLET EXTENDED RELEASE 12 HOUR 1 pill twice daily if needed for congestion SUDAFED 12 HOUR 120 MG ORAL TABLET EXTENDED RELEASE 12 HOUR PSEUDOEPHEDRINE HCL Inactive AMITRIPTYLINE HCL 10 MG ORAL TABLET 1 tablet nightly by mout h for neuropathy AMITRIPTYLINE HCL 10 MG ORAL TABLET 591982 AMITRIPTYLINE HCL Inactive AMITRIPTYLINE HCL 50 MG ORAL TABLET 1 po q hs for sleep AMITRIPTYLINE HCL 50 MG ORAL TABLET 386292 AMITRIPTYLINE HCL Inac tive PREDNISONE 20 MG ORAL TABLET 1 tab twice daily for 3 d ay, then one daily for three days PREDNISONE 20 MG ORAL TABLET 354440 PREDNIS ONE Inactive ROPINIROLE HCL 0.25 MG ORAL TABLET 1 TAB PO Q HS 05/31 ROPINIROLE HCL 0.25 MG ORAL TABLET 076814 ROPINIROLE HCL Inact trent ROPINIROLE HCL 0.5 MG ORAL TABLET 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 ROPINIROLE HCL 0.5 MG ORAL TABLET 595226 ROPINIR OLE HCL Inactive ROPINIROLE HCL 1 MG ORAL TABLET 1 tab po q hs ROPINIROLE HCL 1 MG ORAL TABLET 380189 ROPINIROLE HCL Inactive BACTRIM DS 800-160 MG ORAL TABLET 1 tab by mouth twice daily 201 03/03/23 BACTRIM DS 800-160 MG ORAL TABLET 19830105 TRIMETHOPRIM-SULFAMETHOXAZOLE Inactive ZITHROMAX 250 MG ORAL TABLET 2 po today, then 1 po q days 2-5 20 15/02/10 ZITHROMAX 250 MG ORAL TABLET 217289 AZITHROMYCIN Mayela ctive BACTRIM DS 800-160 MG [...] a day AMOXICILLIN 500 MG ORAL CAPSULE 235959 AMOXICILLIN Inactive ZITHROMAX 250 MG ORAL TABLET 2 po today, then 1 po q days 2-5 20 20/04/28 ZITHROMAX 250 MG ORAL TABLET 479974 AZITHROMYCIN Mayela ctive DIFLUCAN 100 MG ORAL TABLET 1 tablet by mouth daily 20 20/05/01 DIFLUCAN 100 MG ORAL TABLET 013726 FLUCONAZOLE Inactive BACTRIM DS 800-160 MG ORAL TABLET 1 tab by mouth twice daily 201 06/09/02 BACTRIM DS 800-160 MG ORAL TABLET 19830105 TRIMETHOPRIM-SULFAMETHOXAZOLE Inactive HYDROCHLOROTHIAZIDE 12.5 MG ORAL CAPSULE 1 pill by mough daily 2 HYDROCHLOROTHIAZIDE 12.5 MG [facility]LE [facility] L[facility] Inactive BACTRIM DS 800-160 MG ORAL TABLET 1 tab by mouth twice daily 201 07/08/06 BACTRIM DS 800-160 MG ORAL TABLET 19830105 TRIMETHOPRIM-SULFAMETHOXAZOLE Inactive DIFLUCAN 100 MG ORAL TABLET 1 tablet by mouth daily 20 21/03/11 DIFLUCAN 100 MG ORAL TABLET 153615 FLUCONAZOLE Inactive Advance Directives Directive Description Start Date PERMISSION TO SHARE DISCUSSED WITH PATIENT -- NO DECISION MADE DURABLE POWER OF SHIPWRIGHT APPRENTICE FOR HEALTHCARE DISCUSED WITH PATIENT -- FULL [...] Magnesium - Chemistry cholesterol, serum 196 mg/dL [phone]/07/30 triglyceride, serum, fasting 86 mg/dL 30-200 HDL cholesterol, serum 41 mg/dL 32-60 LDL cholesterol, serum 138 mg/dL 0-130 sodium, serum 140 mmol/L 071-352 5203/07/30 carbon dioxide, venous blood 28.6 mmol/L 21.0-32 [...] Negative mg/dL Negative sodium, serum 139 mmol/L 293-675 7531/11/07 carbon dioxide, venous blood 28.4 mmol/L 21.0-32 [...] ative Encounters Code Encounter Date Provider Facility CPT-11100 [id number] Vst-Est Level IV 14:08:03 C BRIDGET Sherman MD [facility] CPT-27108 Level 3 Est. Patient 18:06:36 CDT Tesfaye pearson MD [facility] CPT-25768 [id number] Vst-Est Level IV 17:09:34 C BRIDGET Sherman MD [facility] CPT-44160 Level 3 Est. Patient 17:27:08 CDT León hernandez APRN [facility] CPT-20313 [id number] Vst-Est Level IV 14:00:[address] Tesfaye Sherman MD [facility] CPT-25281 [id number] Vst-Est Level IV 19:27:[address] Tesfaye Sherman MD [facility]-80450 [id number] Vst-Est Level IV 10:41:41 C DT Tesfaye Sherman MD [facility]-32182 [id number] Vst-Est Level III 09:40:56 CDT Tesfaye Sherman MD [facility] CPT-15283 Level 4 Est. Patient 22:18:12 CDT Tesfaye pearson MD [facility]-91427 Level 4 Est. Patient 14:44:33 THERMAL CUTTING MACHINE OPERATOR Tesfaye pearson MD [facility] CPT-61194 Level 4 Est. Patient 13:55:29 THERMAL CUTTING MACHINE OPERATOR Tesfaye pearson MD [facility]-28776 Level 4 Est. Patient 17:07:34 THERMAL CUTTING MACHINE OPERATOR Tesfaye pearson MD [facility]-46012 Level 4 Est. Patient 13:56:54 CDT Tesfaye pearson MD [facility]-06588 Level 4 Est. Patient 13:24:25 CDT Chelsea sanz APRN [facility] CPT-70123 Level 4 Est. Patient 09:14:56 CDT Tesfaye pearson MD [facility]-12903 Level 4 Est. Patient 18:40:25 THERMAL CUTTING MACHINE OPERATOR Tesfaye pearson MD [facility] CPT-00399 Level 4 Est. Patient 18:13:07 THERMAL CUTTING MACHINE OPERATOR Tesfaye pearson MD [facility] CPT-75069 Level 3 Est. Patient 10:46:32 CDT Rj cotto DO [facility] CPT-03334 Level 4 Est. Patient 20:19:25 CDT Tesfaye pearson MD [facility]-54844 Level 3 Est. Patient 09:07:31 CDT Tesfaye pearson MD [facility] CPT-31659 Level 4 Est. Patient 13:12:56 CDT Tesfaye pearson MD [facility]-52771 Level 4 Est. Patient 21:24:55 THERMAL CUTTING MACHINE OPERATOR Tesfaye pearson MD [facility]-52918 Level 3 Est. Patient 13:45:04 THERMAL CUTTING MACHINE OPERATOR Tesfaye pearson MD [facility] CPT-88402 Level 4 Est. Patient 13:50:45 CDT Tesfaye pearson MD [facility] CPT-26996 Level 3 Est. Patient 10:16:10 CDT Tesfaye pearson MD [facility] CPT-00257 Level 3 Est. Patient 16:36:07 THERMAL CUTTING MACHINE OPERATOR Kayla jameson MD [facility]-37290 Level 4 Est. Patient 16:00:14 THERMAL CUTTING MACHINE OPERATOR Tesfaye pearson MD [facility]-30596 Level 4 Est. Patient 11:02:24 THERMAL CUTTING MACHINE OPERATOR Tesfaye pearson MD [facility]-95977 Level 3 Est. Patient 20:21:43 THERMAL CUTTING MACHINE OPERATOR Kayla jameson MD [facility]-69521 Level 3 Est. Patient 13:27:28 THERMAL CUTTING MACHINE OPERATOR Kayla jameson MD [facility]-76595 Level 4 Est. Patient 15:57:17 THERMAL CUTTING MACHINE OPERATOR Tesfaye pearson MD [facility] CPT-07633 Level 3 New Patient 13:25:47 CDT Tesfaye kidd MD [facility] CPT-11052 Level 3 New Patient 17:22:21 CDT Kayla angel MD [facility] Procedures Code Procedure Name Date Entry Date Standard Desc ription CPT-02995 Venipuncture Draw Fee 16:12:22 CDT CPT-G0439 Subsequent Annual Wellness Exam 18:06:36 CDT CPT-G0439 Subsequent Annual Wellness Exam 22:18:11 CDT CPT-75888 Bone Density - XRAY USE ONLY 11:43:58 CDT 2 CPT-98094 Bone Density - XRAY USE ONLY 10:05:16 CDT 2 CPT-65599 Prv Med New Pt 40-64 yrs 18:19:25 CDT 2016 CPT-27220 Foot, right, comp min 3V - XRAY USE ONLY 10:38:34 CDT CPT-G0439 Subsequent Annual Wellness Exam 13:55:04 CDT CPT-G0438 Initial Annual Wellness Exam 11:23:17 CD T CPT-J2930 Solu Medrol 125 mg (Methyl Prednisolone Sodium Succinate) 17:29:12 THERMAL CUTTING MACHINE OPERATOR CPT-19748 Abx/Therapy Injection 17:29:11 THERMAL CUTTING MACHINE OPERATOR CPT-J2930 Solu Medrol 125 mg (Methyl Prednisolone Sodium Succinate) 12:34:38 THERMAL CUTTING MACHINE OPERATOR CPT-J3420 Vitamin B12 1000mcg (Cyanocobalamin) 09:12:55 CDT CPT-J3420 Vitamin B12 1000mcg (Cyanocobalamin) 16:28:06 THERMAL CUTTING MACHINE OPERATOR CPT-95940 Venipuncture Draw Fee 08:39:53 CDT CPT-J3420 Vitamin B12 1000mcg (Cyanocobalamin) 08:46:22 CDT CPT-55466 Abx/Therapy Injection 08:46:22 CDT CPT-J3420 Vitamin B12 1000mcg (Cyanocobalamin) 08:41:26 CDT CPT-09818 Abx/Therapy Injection 08:41:26 CDT CPT-J3420 Vitamin B12 1000mcg (Cyanocobalamin) 08:57:15 CDT CPT-19972 Abx/Therapy Injection 08:57:15 CDT CPT-J3420 Vitamin B12 1000mcg (Cyanocobalamin) 10:59:03 CDT CPT-91149 Abx/Therapy Injection 10:59:03 CDT CPT-J3420 Vitamin B12 1000mcg (Cyanocobalamin) 15:05:39 CDT CPT-42267 Abx/Therapy Injection 15:05:39 CDT CPT-J3420 Vitamin B12 1000mcg (Cyanocobalamin) 13:50:45 CDT CPT-J3420 Vitamin B12 1000mcg (Cyanocobalamin) 08:48:55 CDT CPT-95188 Abx/Therapy Injection 08:48:55 CDT CPT-J3420 Vitamin B12 1000mcg (Cyanocobalamin) 09:14:54 CDT CPT-48576 Abx/Therapy Injection 09:14:54 CDT CPT-J3420 Vitamin B12 1000mcg (Cyanocobalamin) 09:06:06 CDT CPT-42135 Abx/Therapy Injection 09:06:06 CDT CPT-J3420 Vitamin B12 1000mcg (Cyanocobalamin) 09:49:14 CDT CPT-29844 Abx/Therapy Injection 09:49:14 CDT CPT-J3420 Vitamin B12 1000mcg (Cyanocobalamin) 09:10:30 THERMAL CUTTING MACHINE OPERATOR CPT-65093 Abx/Therapy Injection 09:10:30 THERMAL CUTTING MACHINE OPERATOR CPT-J3420 Vitamin B12 1000mcg (Cyanocobalamin) 09:11:07 THERMAL CUTTING MACHINE OPERATOR CPT-77144 Abx/Therapy Injection 09:11:07 THERMAL CUTTING MACHINE OPERATOR CPT-J3420 Vitamin B12 1000mcg (Cyanocobalamin) 09:57:03 THERMAL CUTTING MACHINE OPERATOR CPT-43549 Abx/Therapy Injection 09:57:03 THERMAL CUTTING MACHINE OPERATOR CPT-J3420 Vitamin B12 1000mcg (Cyanocobalamin) 09:23:21 THERMAL CUTTING MACHINE OPERATOR CPT-54478 Abx/Therapy Injection 09:23:21 THERMAL CUTTING MACHINE OPERATOR CPT-22446 Urine Dip (Floor Use Only) 20:21:44 THERMAL CUTTING MACHINE OPERATOR 201 02/12/11 CPT-27870 UA Dip Auto (Floor Use Only) 10:04:39 THERMAL CUTTING MACHINE OPERATOR 2 CPT-68504 Urine Dip (Floor Use Only) 13:27:28 THERMAL CUTTING MACHINE OPERATOR 201 02/12/01 CPT-93952 Bladder Scan 13:27:28 THERMAL CUTTING MACHINE OPERATOR CPT-81441 Abd single AP View 14:30:51 THERMAL CUTTING MACHINE OPERATOR CPT-OV Office Visit 10:15:43 CDT CPT-13327 Urine Dip (Floor Use Only) 17:22:21 CDT 201 02/09/02 CPT-44220 Bladder Scan 17:22:21 CDT
--- OUTSIDE RECORDS SUMMARY | 2020-05-05 11:17 | XMS REPORT | Clinical Summary ---
Author Author Talon, Jeri Wood Organization [employer] Address Unknown Phone Unavailable Allergies, Adverse Reactions, [...] Sherman MD Routine general medical examination at [facility] acility Sinusitis 461.9 Resolved Tesfaye Sherman MD [...] MD Routine general medical examination at [facility] Body Mass Index 21.0-21.9 [...] bilateral 782.3 Active 201 07/07/09 León Kodi HEAD CHOPPER Edema Peripheral neuropathy 356.9 Active Tesfaye lamb [...] ORAL TABLET 1 po nightly PRAMIPEXOLE DIHYDROCHLORIDE 43187756869 Active Laurence Raida Active ROPINIROLE HCL 2 MG ORAL TABLET 1 po at hs ROPI NIROLE HCL 00907113209 No Longer Active Laurence Raida Active ROPINIROLE HCL 1 MG ORAL TABLET 1 tab po q hs ROPINIROLE HCL 69892199240 No Longer Active Laurence Raida Active ROPINIROLE HCL 0.5 MG ORAL TABLET 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 ROPINIROLE HCL 82401534600 No Longer Active MARCUS Panchal Active ROPINIROLE HCL 0.25 MG ORAL TABLET 1 TAB PO Q HS 05/31 ROPINIROLE HCL 22104773443 No Longer Active Tesfaye Sherman MD Ac tive PREDNISONE 20 MG ORAL TABLET 1 tab twice daily for 3 d ay, then one daily for three days PREDNISONE 21451123795 No Longer Active Tesfaye Sherman MD Active AMITRIPTYLINE HCL 50 MG ORAL TABLET 1 po q hs for sleep AMITRIPTYLINE HCL 09414381071 No Longer Active Tesfaye Sherman MD Active AMITRIPTYLINE HCL 10 MG ORAL TABLET 1 tablet nightly by mout h for neuropathy AMITRIPTYLINE HCL 91469201741 No Longer Active MARCUS Stapleton Active DIFLUCAN 100 MG ORAL TABLET 1 tablet by mouth daily 20 21/03/11 FLUCONAZOLE 39017336430 No Longer Active Tesfaye Sherman MD Acti ve BACTRIM DS 800-160 MG ORAL TABLET 1 tab by mouth twice daily 201 07/08/06 TRIMETHOPRIM-SULFAMETHOXAZOLE 35892295978 No Longer Active Umer Sherman MD Active CLARITIN 10 MG ORAL TABLET Take one by mouth daily LORATADINE 88349172076 Active Tesfaye Sherman MD Active SUDAFED 12 HOUR 120 MG ORAL TABLET EXTENDED RELEASE 12 HOUR 1 pill twice daily if needed for congestion PSEUDOEPHEDRINE HCL 617663412 13 No Longer Active Tesfaye Sherman MD Active FENOFIBRATE 145 MG ORAL TABLET 1 by mouth daily FENOFIBRATE 25272105678 Active Laurence Dominguez Active GABAPENTIN 300 MG ORAL CAPSULE 1 po daily GABAP ENTIN 30454638756 No Longer Active Tesfaye Sherman MD Active HYDROCHLOROTHIAZIDE 12.5 MG ORAL CAPSULE 1 pill by mough daily 2 HYDROCHLOROTHIAZIDE 89066594901 No Longer Active León Mariee APRN Active VENLAFAXINE HCL 75 MG ORAL TABLET 1 am 1/ at noon 201 07/07/09 VENLAFAXINE HCL 90006147041 No Longer Active León Mariee APRN Act trent DIFLUCAN 100 MG ORAL TABLET 1 tablet by mouth daily 20 19/02/09 FLUCONAZOLE 96441527909 No Longer Active León Kodi HEAD CHOPPER Active DIFLUCAN 100 MG ORAL TABLET 1 tablet by mouth daily 20 19/02/09 FLUCONAZOLE 48990255016 No Longer Active León Mariee APRN Active OXYCODONE-ACETAMINOPHEN 5-325 MG ORAL TABLET Take one tablet by mouth every 6 hours 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 Use sparingly OXYCODONE-ACETAMINOPHEN 40215849926 Active Tesfaye villar MD Active CLONAZEPAM 0.5 MG ORAL TABLET Take 1/2 qam, and 1/2 qpm CLONAZEPAM 04354945220 Active Tesfaye Sherman MD Active PRELIEF 340 (65-50) MG (CA-P) ORAL TABLET CALCIUM GLYCEROPHOSPHATE 60102248555 No Longer Active Tesfaye Sherman MD Active SUDAFED 24 HOUR 240 MG ORAL TABLET EXTENDED RELEASE 24 HOUR 1 tab po daily PSEUDOEPHEDRINE HCL 03974479249 No Longer Active Raul Sherman MD Active RED YEAST RICE 600 MG ORAL CAPSULE 1 pill by mouth daily RED YEAST RICE EXTRACT 64560295282 No Longer Active Tesfaye Sherman MD Active REPHRESH PRO-B ORAL CAPSULE 1 tablet daily LACT OBACILLUS 16641456449 No Longer Active Tesfaye Sherman MD Active ABILIFY 2 MG ORAL TABLET 1 by mouth daily. MARIA ELENA PIPRAZOLE 34369899965 Active Tesfaye Sherman MD Active CYMBALTA 60 MG ORAL CAPSULE DELAYED RELEASE PARTICLES 1 cap by mouth daily for pain DULOXETINE HCL 89290755576 Active MARCUS Lindsay Active DIFLUCAN 100 MG ORAL TABLET 1 tablet by mouth daily 20 20/06/06 FLUCONAZOLE 95564315063 No Longer Active Tesfaye Sherman MD Acti ve PREDNISONE 20 MG ORAL TABLET 1 tablet by mouth twice d aily for 3 days, then 1 tablet daily for 3 days PREDNISONE 44101732994 No L onger Active Tesfaye Sherman MD Active BACTRIM DS 800-160 MG ORAL TABLET 1 tab by mouth twice daily 201 06/09/02 TRIMETHOPRIM-SULFAMETHOXAZOLE 65118931834 No Longer Active Fer Dominguez Active DIFLUCAN 100 MG ORAL TABLET 1 tablet by mouth daily 20 20/05/01 FLUCONAZOLE 70446201318 No Longer Active Tesfaye Sherman MD Acti ve ZITHROMAX 250 MG ORAL TABLET 2 po today, then 1 po q days 2-5 20 20/04/28 AZITHROMYCIN 08620444998 No Longer Active Tesfaye Sherman MD Active MECLIZINE HCL 25 MG ORAL TABLET one tab po qday prn dizziness 20 17/09/06 MECLIZINE HCL 26612000024 No Longer Active Tesfaye Sherman MD Active PROAIR HFA 108 (90 BASE) MCG/ACT INHALATION AEROSOL SO LUTION 1 puff every 6 hours as needed ALBUTEROL SULFATE 73648230538 No Long er Active Tesfaye Sherman MD Active PREDNISONE 20 MG ORAL TABLET 1 tab twice daily for 3 d ay, then one daily for three days PREDNISONE 55546597266 No Longer Active Tesfaye Sherman MD Active MECLIZINE HCL 25 MG ORAL TABLET one 4 times a day as needed for dizziness MECLIZINE HCL 43268014439 Active Tesfaye Sherman MD Active AMOXICILLIN 500 MG ORAL CAPSULE 1 cap by mouth three times a day AMOXICILLIN 76220255734 No Longer Active Laurence Raida Acti ve DIFLUCAN 100 MG ORAL TABLET 1 tablet by mouth daily 20 19/08/26 FLUCONAZOLE 98189706683 No Longer Active Tesfaye Sherman MD Acti ve BACTRIM DS 800-160 MG ORAL TABLET 1 tab by mouth twice daily 201 05/10/28 TRIMETHOPRIM-SULFAMETHOXAZOLE 78735567380 No Longer Active Fer Dominguez Active FOSAMAX 70 MG ORAL TABLET 1 po qweek. Take 30min prio r to first food/drink. Avoid lying down x 1 hour. ALENDRONATE SODIUM 79272219 144 No Longer Active Laurence Dominguez Active CYMBALTA 60 MG ORAL CAPSULE DELAYED RELEASE PARTICLES Take 1 tablet by mouth daily DULOXETINE HCL 32533805493 No Longer Active Edith Burch MD Active CYMBALTA 30 MG ORAL CAPSULE DELAYED RELEASE PARTICLES 1 cap by mouth daily with 60mg DULOXETINE HCL 93808676029 No Longer Active Jordan Burch MD Active FISH OIL 1000 MG ORAL CAPSULE DELAYED RELEASE 1 pill b y mouth daily for cholesterol OMEGA-3 FATTY ACIDS 24847800107 Active Cee Jaffe LPN Active DIFLUCAN 100 MG ORAL TABLET 1 tablet by mouth daily 20 19/03/05 FLUCONAZOLE 27472844763 No Longer Active Tesfaye Sherman MD Acti ve BACTRIM DS 800-160 MG ORAL TABLET 1 tab by mouth twice daily 201 05/06/28 TRIMETHOPRIM-SULFAMETHOXAZOLE 74090656879 No Longer Active Umer Sherman MD Active BACTRIM DS 800-160 MG ORAL TABLET 1 tab by mouth twice daily 201 05/04/15 TRIMETHOPRIM-SULFAMETHOXAZOLE 93742900351 No Longer Active Umer Sherman MD Active DIFLUCAN 150 MG ORAL TABLET 1 tablet by mouth daily 20 18/09/20 FLUCONAZOLE 72010627928 No Longer Active Tesfaye Sherman MD Acti ve BACTRIM DS 800-160 MG ORAL TABLET 1 tab by mouth twice daily 201 04/13/17 TRIMETHOPRIM-SULFAMETHOXAZOLE 64323736357 No Longer Active Umer Sherman MD Active CEFTIN 250 MG ORAL TABLET 1 tablet twice daily x 7 days CEFUROXIME AXETIL 37676614233 No Longer Active Tesfaye Sherman MD Active DIFLUCAN 100 MG ORAL TABLET 1 tablet by mouth every other da y for 2 doses FLUCONAZOLE 95044703661 No Longer Active Tesfaye barron MD Active DIFLUCAN 100 MG ORAL TABLET 1 tablet by mouth daily X 3 DAYS 201 04/09/01 FLUCONAZOLE 33726441001 No Longer Active Rj Lyons tive MIRTAZAPINE 15 MG ORAL TABLET 1/2 tab by mouth at bedtime. 03/13 MIRTAZAPINE 26428429740 No Longer Active Tesfaye Sherman MD Active BACTRIM DS 800-160 MG ORAL TABLET 1 tab by mouth twice daily 201 04/09/01 TRIMETHOPRIM-SULFAMETHOXAZOLE 75994017935 No Longer Active Umer Sherman MD Active PRAMIPEXOLE DIHYDROCHLORIDE 0.125 MG ORAL TABLET take 1 tablet po qhs for restless leg syndrome. PRAMIPEXOLE DIHYDROCHLORI DE 43997633848 No Longer Active Tesfaye Sherman MD Active MAGNESIUM 400 MG ORAL TABLET 1 tab po daily FELIX FAGAN 96929208577 Active Chelsea Cardenas APRN Active CETIRIZINE HCL 5 MG ORAL TABLET Take 1 tablet by mouth daily CETIRIZINE HCL 50871835478 No Longer Active Chelsea Cardenas APRN Activ e TRIMETHOPRIM 100 MG ORAL TABLET 1/2 qd TRIM ETHOPRIM 77155657092 No Longer Active Chelsea Cardenas APRN Active BACTRIM DS 800-160 MG ORAL TABLET 1 tab by mouth twice daily 201 04/04/11 TRIMETHOPRIM-SULFAMETHOXAZOLE 57917192288 No Longer Active Umer Sherman MD Active BACTRIM DS 800-160 MG ORAL TABLET 1 tab by mouth twice daily X 10 DAYS TRIMETHOPRIM-SULFAMETHOXAZOLE 90213045831 No Longer Active Tesfaye Sherman MD Active AMOXICILLIN 500 MG ORAL CAPSULE 1 cap by mouth three times a day AMOXICILLIN 24384902122 No Longer Active Adriana Arredondo, A A ctive B-12 1000 MCG ORAL LOZENGE 1 tab po daily CYANO COBALAMIN 35644368474 Active Tesfaye Sherman MD Active VITAMIN D3 2000 UNIT ORAL TABLET 1 daily, for vitamin D deficien cy CHOLECALCIFEROL 17849272679 No Longer Active Tesfaye Sherman MD Active TIZANIDINE HCL 2 MG ORAL TABLET take 1-2 tablet by mo [facility] every day at bedtime at 9pm PRN TIZANIDINE HCL 20810259802 Active Tesfaye hewitt MD Active ZITHROMAX 250 MG ORAL TABLET 2 po today, then 1 po q days 2-5 20 15/02/10 AZITHROMYCIN 34666167852 No Longer Active Tesfaye Sherman MD Active BACTRIM DS 800-160 MG ORAL TABLET 1 tab by mouth twice daily 201 03/03/23 TRIMETHOPRIM-SULFAMETHOXAZOLE 67191828876 No Longer Active Umer Sherman MD Active [facility] NIACIN FLUSH FREE 400-100 MG ORAL CAPSULE 1 daily NIACIN-INOSITOL 58633896371 Active Kayla Cooper MD Activ e DIFLUCAN 150 MG ORAL TABLET 1 qd FLUCONAZOL E 60203888323 No Longer Active Kayla Cooper MD Active FLUTICASONE PROPIONATE 50 MCG/ACT NASAL SUSPENSION 1 spray each nostril twice daily FLUTICASONE PROPIONATE 89836420319 Active D patricia Sherman MD Active LOVASTATIN 20 MG ORAL TABLET Take 1 tablet by mouth daily LOVASTATIN 81511428974 No Longer Active Tesfaye Sherman MD Acti ve MELOXICAM 7.5 MG ORAL TABLET 1 tablet by mouth daily 2 MELOXICAM 65190443536 No Longer Active Tesfaye Sherman MD Acti ve GABAPENTIN 300 MG ORAL CAPSULE Take two tablets by mouth every e vening GABAPENTIN 55809277575 No Longer Active Edith Burch MD A ctive BACLOFEN 10 MG ORAL TABLET Take one tablet by mouth three times a d ay BACLOFEN 90173973436 Active Kayla Cooper MD Active GABAPENTIN 300 MG ORAL CAPSULE Take two tablets by mouth every e vening GABAPENTIN 300 MG ORAL CAPSULE 905730 GABAPENTIN I nactive MELOXICAM 7.5 MG ORAL TABLET 1 tablet by mouth daily 2 MELOXICAM 7.5 MG ORAL TABLET 078913 MELOXICAM Inactive LOVASTATIN 20 MG ORAL TABLET Take 1 tablet by mouth daily LOVASTATIN 20 MG ORAL TABLET 343244 LOVASTATIN Inactive DIFLUCAN 150 MG ORAL TABLET 1 qd DIFLUCAN 150 MG ORAL TABLET 502068 FLUCONAZOLE Inactive VITAMIN D3 2000 UNIT ORAL TABLET 1 daily, for vitamin D deficien cy VITAMIN D3 2000 UNIT ORAL TABLET CHOLECALCIFEROL Inactive AMOXICILLIN 500 MG ORAL CAPSULE 1 cap by mouth three times a day AMOXICILLIN 500 MG ORAL CAPSULE 460777 AMOXICILLIN Inactive BACTRIM DS 800-160 MG ORAL TABLET 1 tab by mouth twice daily X 10 DAYS BACTRIM DS 800-160 MG ORAL TABLET 106683 TRIMETHOPRIM-SULFAMETHOXAZOLE Inactive TRIMETHOPRIM 100 MG ORAL TABLET 1/2 qd 7 TRIMETHOPRIM 100 MG ORAL TABLET 19830102 TRIMETHOPRIM Inactive CETIRIZINE HCL 5 MG ORAL TABLET Take 1 tablet by mouth daily CETIRIZINE HCL 5 MG ORAL TABLET 4345132 CETIRIZINE HCL Inactive PRAMIPEXOLE DIHYDROCHLORIDE 0.125 MG ORAL TABLET take 1 tablet po qhs for restless leg syndrome. PRAMIPEXOLE DIHYD ROCHLORIDE 0.125 MG ORAL TABLET 175573 PRAMIPEXOLE DIHYDROCHLORIDE Inactive MIRTAZAPINE 15 MG ORAL TABLET 1/2 tab by mouth at bedtime. 03/13 MIRTAZAPINE 15 MG ORAL TABLET 396896 MIRTAZAPINE In active DIFLUCAN 100 MG ORAL TABLET 1 tablet by mouth daily X 3 DAYS 201 04/09/01 DIFLUCAN 100 MG ORAL TABLET 074180 FLUCONAZOLE Inac tive DIFLUCAN 100 MG ORAL TABLET 1 tablet by mouth every other da y for 2 doses DIFLUCAN 100 MG ORAL TABLET 282701 FLUCONAZOLE Inactive CEFTIN 250 MG ORAL TABLET 1 tablet twice daily x 7 days CEFTIN 250 MG ORAL TABLET CEFUROXIME AXETIL Inactive CYMBALTA 30 MG ORAL CAPSULE DELAYED RELEASE PARTICLES 1 cap by mouth daily with 60mg CYMBALTA 30 MG ORAL CAPSULE DELAYED RELEASE PARTICLES 921663 DULOXETINE HCL Inactive CYMBALTA 60 MG ORAL CAPSULE DELAYED RELEASE PARTICLES Take 1 tablet by mouth daily CYMBALTA 60 MG ORAL CAPSULE DELAYED RELEA SE PARTICLES 246614 DULOXETINE HCL Inactive FOSAMAX 70 MG ORAL TABLET 1 po qweek. Take 30min prio r to first food/drink. Avoid lying down x 1 hour. FOSAMAX 70 MG ORAL TA BLET 530121 ALENDRONATE SODIUM Inactive DIFLUCAN 100 MG ORAL TABLET 1 tablet by mouth daily 19/08/26 DIFLUCAN 100 MG ORAL TABLET 668696 FLUCONAZOLE Inactive PREDNISONE 20 MG ORAL TABLET 1 tab twice daily for 3 d ay, then one daily for three days PREDNISONE 20 MG ORAL TABLET 750448 PREDNIS ONE Inactive PROAIR HFA 108 (90 BASE) MCG/ACT INHALATION AEROSOL SO LUTION 1 puff every 6 hours as needed PROAIR HFA 108 (90 B ASE) MCG/ACT INHALATION AEROSOL SOLUTION ALBUTEROL SULFATE Inactive MECLIZINE HCL 25 MG ORAL TABLET one tab po qday prn dizziness 20 17/09/06 MECLIZINE HCL 25 MG ORAL TABLET 656337 MECLIZINE HCL Inactive PREDNISONE 20 MG ORAL TABLET 1 tablet by mouth twice d aily for 3 days, then 1 tablet daily for 3 days PREDNISONE 20 MG ORAL TA BLET 163164 PREDNISONE Inactive DIFLUCAN 100 MG ORAL TABLET 1 tablet by mouth daily 20 20/06/06 DIFLUCAN 100 MG ORAL TABLET 585596 FLUCONAZOLE Inactive REPHRESH PRO-B ORAL CAPSULE 1 tablet daily REPHRESH PRO-B ORAL CAPSULE LACTOBACILLUS Inactive RED YEAST RICE 600 MG ORAL CAPSULE 1 pill by mouth daily RED YEAST RICE 600 MG ORAL CAPSULE 263615 RED YEAST RICE EXTRACT In active SUDAFED [...] 20 19/02/09 DIFLUCAN 100 MG ORAL TABLET 479111 FLUCONAZOLE Inactive DIFLUCAN 100 MG ORAL TABLET 1 tablet by mouth daily 20 19/02/09 DIFLUCAN 100 MG ORAL TABLET 993723 FLUCONAZOLE Inactive VENLAFAXINE HCL 75 MG ORAL TABLET 1 am 1/2 at noon 201 07/07/09 VENLAFAXINE HCL 75 MG ORAL TABLET 186223 VENLAFAXINE HCL Inacti ve GABAPENTIN 300 MG ORAL CAPSULE 1 po daily GABAPENTIN 300 MG ORAL CAPSULE 970136 GABAPENTIN Inactive SUDAFED 12 HOUR 120 MG ORAL TABLET EXTENDED RELEASE 12 HOUR 1 pill twice daily if needed for congestion SUDAFED 12 HOUR 120 MG ORAL TABLET EXTENDED RELEASE 12 HOUR PSEUDOEPHEDRINE HCL Inactive AMITRIPTYLINE HCL 10 MG ORAL TABLET 1 tablet nightly by mout h for neuropathy AMITRIPTYLINE HCL 10 MG ORAL TABLET 854109 AMITRIPTYLINE HCL Inactive AMITRIPTYLINE HCL 50 MG ORAL TABLET 1 po q hs for sleep AMITRIPTYLINE HCL 50 MG ORAL TABLET 639365 AMITRIPTYLINE HCL Inac tive PREDNISONE 20 MG ORAL TABLET 1 tab twice daily for 3 d ay, then one daily for three days PREDNISONE 20 MG ORAL TABLET 702366 PREDNIS ONE Inactive ROPINIROLE HCL 0.25 MG ORAL TABLET 1 TAB PO Q HS 05/31 ROPINIROLE HCL 0.25 MG ORAL TABLET 297858 ROPINIROLE HCL Inact trent ROPINIROLE HCL 0.5 MG ORAL TABLET 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 ROPINIROLE HCL 0.5 MG ORAL TABLET 716552 ROPINIR OLE HCL Inactive ROPINIROLE HCL 1 MG ORAL TABLET 1 tab po q hs ROPINIROLE HCL 1 MG ORAL TABLET 425952 ROPINIROLE HCL Inactive ROPINIROLE HCL 2 MG ORAL TABLET 1 po at hs 7 ROPINIROLE HCL 2 MG ORAL TABLET 560212 ROPINIROLE HCL Inactive BACTRIM DS 800-160 MG ORAL TABLET 1 tab by mouth twice daily 201 03/03/23 BACTRIM DS 800-160 MG ORAL TABLET 081655 TRIMETHOPRIM-SULFAMETHOXAZOLE Inactive ZITHROMAX 250 MG ORAL TABLET 2 po today, then 1 po q days 2-5 20 15/02/10 ZITHROMAX 250 MG ORAL TABLET 154411 AZITHROMYCIN Randolph ctive BACTRIM DS 800-160 MG ORAL TABLET [...] a day AMOXICILLIN 500 MG ORAL CAPSULE 085088 AMOXICILLIN Inactive ZITHROMAX 250 MG ORAL TABLET 2 po today, then 1 po q days 2-5 20 20/04/28 ZITHROMAX 250 MG ORAL TABLET 969042 AZITHROMYCIN Randolph ctive DIFLUCAN 100 MG ORAL TABLET 1 [...] 20 21/03/11 DIFLUCAN 100 MG ORAL TABLET 905986 FLUCONAZOLE Inactive Advance Directives Directive Description Start Date PERMISSION TO SHARE DISCUSSED WITH PATIENT -- NO DECISION MADE 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 DISCUSED WITH PATIENT -- FULL [...] Magnesium - Chemistry cholesterol, serum 196 mg/dL 795-140 1229/07/30 triglyceride, serum, fasting 86 mg/dL 30-200 HDL cholesterol, serum 41 mg/dL 32-60 LDL cholesterol, serum 138 mg/dL 0-130 sodium, serum 140 mmol/L 320-639 7330/07/30 carbon dioxide, venous blood 28.6 mmol/L 21.0-32 [...] Negative mg/dL Negative sodium, serum 139 mmol/L 928-418 8051/11/07 carbon dioxide, venous blood 28.4 mmol/L 21.0-32 [...] Negative Encounters Code Encounter Date Provider Facility CPT-50896 [id number] Vst-Est Level IV 14:08:03 C BRIDGET Sherman MD [facility] CPT-17155 Level 3 Est. Patient 18:06:36 CDT Tesfaye pearson MD [facility] CPT-15558 [id number] Vst-Est Level IV 17:09:34 C BRIDGET Sherman MD [facility] CPT-32994 Level 3 Est. Patient 17:27:08 CDT León Tin dle [facility]-22579 [id number] Vst-Est Level IV 14:00:[address] Tesfaye Sherman MD [facility]-16557 [id number] Vst-Est Level IV 19:27:[address] Tesfaye Sherman MD [facility]-01476 [id number] Vst-Est Level IV 10:41:41 C BRIDGET Sherman MD [facility]-21024 [id number] Vst-Est Level III 09:40:56 CDT Tesfaye Sherman MD [facility] CPT-28898 Level 4 Est. Patient 22:18:12 CDT Tesfaye pearson MD [facility] CPT-18437 Level 4 Est. Patient 14:44:33 MANAGER OF OPERATIONS Tesfaye pearson MD [facility] CPT-71302 Level 4 Est. Patient 13:55:29 MANAGER OF OPERATIONS Tesfaye pearson MD [facility] CPT-92732 Level 4 Est. Patient 17:07:34 MANAGER OF OPERATIONS Tesfaye pearson MD [facility] CPT-33913 Level 4 Est. Patient 13:56:54 CDT Tesfaye pearson MD [facility] CPT-86131 Level 4 Est. Patient 13:24:25 CDT Chelsea sanz Formerly named [facility] CPT-62133 Level 4 Est. Patient 09:14:56 CDT Tesfaye pearson MD [facility] CPT-68232 Level 4 Est. Patient 18:40:25 MANAGER OF OPERATIONS Tesfaye pearson MD [facility] CPT-45721 Level 4 Est. Patient 18:13:07 MANAGER OF OPERATIONS Tesfaye pearson MD [facility] CPT-63311 Level 3 Est. Patient 10:46:32 CDT Rj cotto DO [facility] CPT-33834 Level 4 Est. Patient 20:19:25 CDT Tesfaye pearson MD [facility] CPT-22276 Level 3 Est. Patient 09:07:31 CDT Tesfaye pearson MD [facility] CPT-86232 Level 4 Est. Patient 13:12:56 CDT Tesfaye pearson MD [facility] CPT-62110 Level 4 Est. Patient 21:24:55 MANAGER OF OPERATIONS Tesfaye pearson MD [facility]-69520 Level 3 Est. Patient 13:45:04 MANAGER OF OPERATIONS Tesfaye pearson MD [facility] CPT-78522 Level 4 Est. Patient 13:50:45 CDT Tesfaye pearson MD [facility] CPT-79820 Level 3 Est. Patient 10:16:10 CDT Tesfaye pearson MD [facility] CPT-51581 Level 3 Est. Patient 16:36:07 MANAGER OF OPERATIONS Kayla jameson MD [facility] CPT-26032 Level 4 Est. Patient 16:00:14 MANAGER OF OPERATIONS Tesfaye pearson MD [facility] CPT-76847 Level 4 Est. Patient 11:02:24 MANAGER OF OPERATIONS Tesfaye pearson MD [facility] CPT-60251 Level 3 Est. Patient 20:21:43 MANAGER OF OPERATIONS Kayla jameson MD [facility] CPT-16189 Level 3 Est. Patient 13:27:28 MANAGER OF OPERATIONS Kayla jameson MD [facility] CPT-11505 Level 4 Est. Patient 15:57:17 MANAGER OF OPERATIONS Tesfaye pearson MD [facility] CPT-81369 Level 3 New Patient 13:25:47 CDT Tesfaye kidd MD [facility] CPT-99576 Level 3 New Patient 17:22:21 CDT Kayla angel MD [facility] Procedures Code Procedure Name Date Entry Date Standard Desc ription CPT-46481 Venipuncture Draw Fee 16:12:22 CDT CPT-G0439 Subsequent Annual Wellness Exam 18:06:36 CDT CPT-G0439 Subsequent Annual Wellness Exam 22:18:11 CDT CPT-08372 Bone Density - XRAY USE ONLY 11:43:58 CDT 2 CPT-87448 Bone Density - XRAY USE ONLY 10:05:16 CDT 2 CPT-32042 Prv Med New Pt 40-64 yrs 18:19:25 CDT 2016 CPT-19378 Foot, right, comp min 3V - XRAY USE ONLY 10:38:34 CDT CPT-G0439 Subsequent Annual Wellness Exam 13:55:04 CDT CPT-G0438 Initial Annual Wellness Exam 11:23:17 CD T CPT-J2930 Solu Medrol 125 mg (Methyl Prednisolone Sodium Succinate) 17:29:12 MANAGER OF OPERATIONS CPT-37768 Abx/Therapy Injection 17:29:11 MANAGER OF OPERATIONS CPT-J2930 Solu Medrol 125 mg (Methyl Prednisolone Sodium Succinate) 12:34:38 MANAGER OF OPERATIONS CPT-J3420 Vitamin B12 1000mcg (Cyanocobalamin) 09:12:55 CDT CPT-J3420 Vitamin B12 1000mcg (Cyanocobalamin) 16:28:06 MANAGER OF OPERATIONS CPT-28626 Venipuncture Draw Fee 08:39:53 CDT CPT-J3420 Vitamin B12 1000mcg (Cyanocobalamin) 08:46:22 CDT CPT-71903 Abx/Therapy Injection 08:46:22 CDT CPT-J3420 Vitamin B12 1000mcg (Cyanocobalamin) 08:41:26 CDT CPT-62725 Abx/Therapy Injection 08:41:26 CDT CPT-J3420 Vitamin B12 1000mcg (Cyanocobalamin) 08:57:15 CDT CPT-63043 Abx/Therapy Injection 08:57:15 CDT CPT-J3420 Vitamin B12 1000mcg (Cyanocobalamin) 10:59:03 CDT CPT-81589 Abx/Therapy Injection 10:59:03 CDT CPT-J3420 Vitamin B12 1000mcg (Cyanocobalamin) 15:05:39 CDT CPT-06103 Abx/Therapy Injection 15:05:39 CDT CPT-J3420 Vitamin B12 1000mcg (Cyanocobalamin) 13:50:45 CDT CPT-J3420 Vitamin B12 1000mcg (Cyanocobalamin) 08:48:55 CDT CPT-35108 Abx/Therapy Injection 08:48:55 CDT CPT-J3420 Vitamin B12 1000mcg (Cyanocobalamin) 09:14:54 CDT CPT-43803 Abx/Therapy Injection 09:14:54 CDT CPT-J3420 Vitamin B12 1000mcg (Cyanocobalamin) 09:06:06 CDT CPT-13296 Abx/Therapy Injection 09:06:06 CDT CPT-J3420 Vitamin B12 1000mcg (Cyanocobalamin) 09:49:14 CDT CPT-86637 Abx/Therapy Injection 09:49:14 CDT CPT-J3420 Vitamin B12 1000mcg (Cyanocobalamin) 09:10:30 MANAGER OF OPERATIONS CPT-02287 Abx/Therapy Injection 09:10:30 MANAGER OF OPERATIONS CPT-J3420 Vitamin B12 1000mcg (Cyanocobalamin) 09:11:07 MANAGER OF OPERATIONS CPT-02056 Abx/Therapy Injection 09:11:07 MANAGER OF OPERATIONS CPT-J3420 Vitamin B12 1000mcg (Cyanocobalamin) 09:57:03 MANAGER OF OPERATIONS CPT-88250 Abx/Therapy Injection 09:57:03 MANAGER OF OPERATIONS CPT-J3420 Vitamin B12 1000mcg (Cyanocobalamin) 09:23:21 MANAGER OF OPERATIONS CPT-75959 Abx/Therapy Injection 09:23:21 MANAGER OF OPERATIONS CPT-95083 Urine Dip (Floor Use Only) 20:21:44 MANAGER OF OPERATIONS 201 02/12/11 CPT-20223 UA Dip Auto (Floor Use Only) 10:04:39 MANAGER OF OPERATIONS 2 CPT-55975 Urine Dip (Floor Use Only) 13:27:28 MANAGER OF OPERATIONS 201 02/12/01 CPT-54373 Bladder Scan 13:27:28 MANAGER OF OPERATIONS CPT-24537 Abd single AP View 14:30:51 MANAGER OF OPERATIONS CPT-OV Office Visit 10:15:43 CDT CPT-19944 Urine Dip (Floor Use Only) 17:22:21 CDT 201 02/09/02 CPT-68363 Bladder Scan 17:22:21 CDT
--- OUTSIDE RECORDS SUMMARY | 2020-05-05 11:18 | XMS REPORT | Clinical Summary ---
Author Author Talon, Jeri Wood Organization [employer] Address Unknown Phone Unavailable Allergies, Adverse Reactions, [...] Routine general medical examination at [facility] acility Sinusitis 461.9 Resolved Tesfaye Sherman [...] MD Routine general medical examination at a [facility] acility Body Mass Index [...] Tesfaye Sherman MD Dysuria High risk meds usp use V58.6 Active Tesfaye Sherman MD Long-term (current) drug use Yeast infection 112.9 Inactive Tesfaye Sherman MD Candidiasis of unspecified site Upper respiratory infection 465.9 Inactive Tesfaye Sherman MD Acute upper respiratory infections of un specified site Lower extremity edema, bilateral 782.3 Active 201 07/07/09 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 ROPINIROLE HCL 62754457441 No Longer Active MARCUS Panchal Active ROPINIROLE HCL 1 MG ORAL TABLET 1 tab po q hs R OPINIROLE HCL 76621217545 Active MARCUS Maravilla Active ROPINIROLE HCL 0.25 MG ORAL TABLET 1 TAB PO Q HS 05/31 ROPINIROLE HCL 88723405705 No Longer Active Tesfaye Sherman MD Ac tive PREDNISONE 20 MG ORAL TABLET 1 tab twice daily for 3 d ay, then one daily for three days PREDNISONE 17891887895 No Longer Active Tesfaye Sherman MD Active AMITRIPTYLINE HCL 50 MG ORAL TABLET 1 po q hs for sleep AMITRIPTYLINE HCL 59164027978 No Longer Active Tesfaye Sherman MD Active AMITRIPTYLINE HCL 10 MG ORAL TABLET 1 tablet nightly by mout h for neuropathy AMITRIPTYLINE HCL 68699676075 No Longer Active MARCUS Stapleton Active DIFLUCAN 100 MG ORAL TABLET 1 tablet by mouth daily 20 21/03/11 FLUCONAZOLE 69593125841 No Longer Active Tesfaye Sherman MD Acti ve BACTRIM DS 800-160 MG ORAL TABLET 1 tab by mouth twice daily 201 07/08/06 TRIMETHOPRIM-SULFAMETHOXAZOLE 72366673959 No Longer Active Umer Sherman MD Active CLARITIN 10 MG ORAL TABLET Take one by mouth daily LORATADINE 65315592056 Active Tesfaye Sherman MD Active SUDAFED 12 HOUR 120 MG ORAL TABLET EXTENDED RELEASE 12 HOUR 1 pill twice daily if needed for congestion PSEUDOEPHEDRINE HCL 090144064 13 No Longer Active Tesfaye Sherman MD Active FENOFIBRATE 145 MG ORAL TABLET 1 by mouth daily FENOFIBRATE 17744063071 Active Laurence Dominguez Active GABAPENTIN 300 MG ORAL CAPSULE 1 po daily GABAP ENTIN 98572086626 No Longer Active Tesfaye Sherman MD Active HYDROCHLOROTHIAZIDE 12.5 MG ORAL CAPSULE 1 pill by mough daily 2 HYDROCHLOROTHIAZIDE 63551970509 No Longer Active León Kodi 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 Active VENLAFAXINE HCL 75 MG ORAL TABLET 1 am 1/ at noon 201 07/07/09 VENLAFAXINE HCL 99584806469 No Longer Active León Kodi 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 Use sparingly OXYCODONE-ACETAMINOPHEN 26548019966 Active Tesfaye villar MD Active CLONAZEPAM 0.5 MG ORAL TABLET Take 1/2 qam, and 1/2 qpm CLONAZEPAM 88232937081 Active Tesfaye Sherman MD Active PRELIEF 340 (65-50) MG (CA-P) ORAL TABLET CALCIUM GLYCEROPHOSPHATE 86956798438 No Longer Active Tesfaye Sherman MD Active SUDAFED 24 HOUR 240 MG ORAL TABLET EXTENDED RELEASE 24 HOUR 1 tab po daily PSEUDOEPHEDRINE HCL 08634824268 No Longer Active Raul Sherman MD Active RED YEAST RICE 600 MG ORAL CAPSULE 1 pill by mouth daily RED YEAST RICE EXTRACT 54241939555 No Longer Active Tesfaye Sherman MD Active REPHRESH PRO-B ORAL CAPSULE 1 tablet daily LACT OBACILLUS 21434833526 No Longer Active Tesfaye Sherman MD Active ABILIFY 2 MG ORAL TABLET 1 by mouth daily. MARIA ELENA PIPRAZOLE 38735104691 Active Tesfaye Sherman MD Active CYMBALTA 60 MG ORAL CAPSULE DELAYED RELEASE PARTICLES 1 cap by mouth daily for pain DULOXETINE HCL 68746733049 Active MARCUS Lindsay Active DIFLUCAN 100 MG ORAL TABLET 1 tablet by mouth daily 20 20/06/06 FLUCONAZOLE 92447693693 No Longer Active Tesfaye Sherman MD Acti ve PREDNISONE 20 MG ORAL TABLET 1 tablet by mouth twice d aily for 3 days, then 1 tablet daily for 3 days PREDNISONE 68030848993 No L onger Active Tesfaye Sherman MD Active BACTRIM DS 800-160 MG ORAL TABLET 1 tab by mouth twice daily 201 06/09/02 TRIMETHOPRIM-SULFAMETHOXAZOLE 67168791298 No Longer Active Fer Dominguez Active DIFLUCAN 100 MG ORAL TABLET 1 tablet by mouth daily 20 20/05/01 FLUCONAZOLE 32389949343 No Longer Active Tesfaye Sherman MD Acti ve ZITHROMAX 250 MG ORAL TABLET 2 po today, then 1 po q days 2-5 20 20/04/28 AZITHROMYCIN 07784796273 No Longer Active Tesfaye Sherman MD Active MECLIZINE HCL 25 MG ORAL TABLET one tab po qday prn dizziness 20 17/09/06 MECLIZINE HCL 46337475740 No Longer Active Tesfaye Sherman MD Active PROAIR HFA 108 (90 BASE) MCG/ACT INHALATION AEROSOL SO LUTION 1 puff every 6 hours as needed ALBUTEROL SULFATE 55119972333 No Long er Active Tesfaye Sherman MD Active PREDNISONE 20 MG ORAL TABLET 1 tab twice daily for 3 d ay, then one daily for three days PREDNISONE 84742837674 No Longer Active Tesfaye Sherman MD Active MECLIZINE HCL 25 MG ORAL TABLET one 4 times a day as needed for dizziness MECLIZINE HCL 20853657849 Active Tesfaye Sherman MD Active AMOXICILLIN 500 MG ORAL CAPSULE 1 cap by mouth three times a day AMOXICILLIN 81067779709 No Longer Active Laurence Raida Acti ve DIFLUCAN 100 MG ORAL TABLET 1 tablet by mouth daily 20 19/08/26 FLUCONAZOLE 42880492913 No Longer Active Tesfaye Sherman MD Acti ve BACTRIM DS 800-160 MG ORAL TABLET 1 tab by mouth twice daily 201 05/10/28 TRIMETHOPRIM-SULFAMETHOXAZOLE 74769388029 No Longer Active Fer mastersa Angelica Active FOSAMAX 70 MG ORAL TABLET 1 po qweek. Take 30min prio r to first food/drink. Avoid lying down x 1 hour. ALENDRONATE SODIUM 35494263 144 No Longer Active Laurence Dominguez Active CYMBALTA 60 MG ORAL CAPSULE DELAYED RELEASE PARTICLES Take 1 tablet by mouth daily DULOXETINE HCL 50877622261 No Longer Active Edith Burch MD Active CYMBALTA 30 MG ORAL CAPSULE DELAYED RELEASE PARTICLES 1 cap by mouth daily with 60mg DULOXETINE HCL 63105586371 No Longer Active Jordan Burch MD Active FISH OIL 1000 MG ORAL CAPSULE DELAYED RELEASE 1 pill b y mouth daily for cholesterol OMEGA-3 FATTY ACIDS 24342796419 Active Cee Jaffe LPN Active DIFLUCAN 100 MG ORAL TABLET 1 tablet by mouth daily 20 19/03/05 FLUCONAZOLE 80006067220 No Longer Active Tesfaye Sherman MD Acti ve BACTRIM DS 800-160 MG ORAL TABLET 1 tab by mouth twice daily 201 05/06/28 TRIMETHOPRIM-SULFAMETHOXAZOLE 83808445796 No Longer Active Umer Sherman MD Active BACTRIM DS 800-160 MG ORAL TABLET 1 tab by mouth twice daily 201 05/04/15 TRIMETHOPRIM-SULFAMETHOXAZOLE 21261470175 No Longer Active Umer Sherman MD Active DIFLUCAN 150 MG ORAL TABLET 1 tablet by mouth daily 20 18/09/20 FLUCONAZOLE 28183710524 No Longer Active Tesfaye Sherman MD Acti ve BACTRIM DS 800-160 MG ORAL TABLET 1 tab by mouth twice daily 201 04/13/17 TRIMETHOPRIM-SULFAMETHOXAZOLE 23697137053 No Longer Active Umer Sherman MD Active CEFTIN 250 MG ORAL TABLET 1 tablet twice daily x 7 days CEFUROXIME AXETIL 25256743043 No Longer Active Tesfaye Sherman MD Active DIFLUCAN 100 MG ORAL TABLET 1 tablet by mouth every other da y for 2 doses FLUCONAZOLE 50267701000 No Longer Active Tesfaye barron MD Active DIFLUCAN 100 MG ORAL TABLET 1 tablet by mouth daily X 3 DAYS 201 04/09/01 FLUCONAZOLE 89622153691 No Longer Active Rj Lyons tive MIRTAZAPINE 15 MG ORAL TABLET 1/2 tab by mouth at bedtime. 03/13 MIRTAZAPINE 07929341930 No Longer Active Tesfaye Sherman MD Active BACTRIM DS 800-160 MG ORAL TABLET 1 tab by mouth twice daily 201 04/09/01 TRIMETHOPRIM-SULFAMETHOXAZOLE 07424960612 No Longer Active Umer Sherman MD Active PRAMIPEXOLE DIHYDROCHLORIDE 0.125 MG ORAL TABLET take 1 tablet po qhs for restless leg syndrome. PRAMIPEXOLE DIHYDROCHLORI DE 63222656270 No Longer Active Tesfaye Sherman MD Active MAGNESIUM 400 MG ORAL TABLET 1 tab po daily MAGNE SIUM 43849334891 Active Chelsea Cardenas APRN Active CETIRIZINE HCL 5 MG ORAL TABLET Take 1 tablet by mouth daily CETIRIZINE HCL 65612046556 No Longer Active Chelsea Cardenas APRN Activ e TRIMETHOPRIM 100 MG ORAL TABLET 1/2 qd TRIM ETHOPRIM 51847073684 No Longer Active Chelsea Cardenas APRN Active BACTRIM DS 800-160 MG ORAL TABLET 1 tab by mouth twice daily 201 04/04/11 TRIMETHOPRIM-SULFAMETHOXAZOLE 30615108639 No Longer Active Umer Sherman MD Active BACTRIM DS 800-160 MG ORAL TABLET 1 tab by mouth twice daily X 10 DAYS TRIMETHOPRIM-SULFAMETHOXAZOLE 24587147262 No Longer Active Tesfaye Sherman MD Active AMOXICILLIN 500 MG ORAL CAPSULE 1 cap by mouth three times a day AMOXICILLIN 45794870802 No Longer Active Adriana Arredondo, A A ctive B-12 1000 MCG ORAL LOZENGE 1 tab po daily CYANO COBALAMIN 87017318834 Active Tesfaye Sherman MD Active VITAMIN D3 2000 UNIT ORAL TABLET 1 daily, for vitamin D deficien cy CHOLECALCIFEROL 23864392406 No Longer Active Tesfaye Sherman MD Active TIZANIDINE HCL 2 MG ORAL TABLET take 1-2 tablet by [facility] every day at bedtime at 9pm PRN TIZANIDINE HCL 08185918683 Active Tesfaye hewitt MD Active ZITHROMAX 250 MG ORAL TABLET 2 po today, then 1 po q days 2-5 20 15/02/10 AZITHROMYCIN 25637432867 No Longer Active Tesfaye Sherman MD Active BACTRIM DS 800-160 MG ORAL TABLET 1 tab by mouth twice daily 201 03/03/23 TRIMETHOPRIM-SULFAMETHOXAZOLE 90612251997 No Longer Active Umer Sherman MD Active [facility] NIACIN FLUSH FREE 400-100 MG ORAL CAPSULE 1 daily NIACIN-INOSITOL 94807959448 Active Kayla Cooper MD Activ e DIFLUCAN 150 MG ORAL TABLET 1 qd FLUCONAZOL E 32026493210 No Longer Active Kayla Cooper MD Active FLUTICASONE PROPIONATE 50 MCG/ACT NASAL SUSPENSION 1 spray each nostril twice daily FLUTICASONE PROPIONATE 26951730353 Active Umer Sherman MD Active LOVASTATIN 20 MG ORAL TABLET Take 1 tablet by mouth daily LOVASTATIN 73944643710 No Longer Active Tesfaye Sherman MD Acti ve MELOXICAM 7.5 MG ORAL TABLET 1 tablet by mouth daily 2 MELOXICAM 82211277945 No Longer Active Tesfaye Sherman MD Acti ve GABAPENTIN 300 MG ORAL CAPSULE Take two tablets by mouth every e vening GABAPENTIN 17505032461 No Longer Active Edith Burch MD A ctive BACLOFEN 10 MG ORAL TABLET Take one tablet by mouth three times a d ay BACLOFEN 86745844136 Active Kayla Cooper MD Active GABAPENTIN 300 MG ORAL CAPSULE Take two tablets by mouth every e vening GABAPENTIN 300 MG ORAL CAPSULE 401641 GABAPENTIN I nactive MELOXICAM 7.5 MG ORAL TABLET 1 tablet by mouth daily 2 MELOXICAM 7.5 MG ORAL TABLET 251957 MELOXICAM Inactive LOVASTATIN 20 MG ORAL TABLET Take 1 tablet by mouth daily LOVASTATIN 20 MG ORAL TABLET 942568 LOVASTATIN Inactive DIFLUCAN 150 MG ORAL TABLET 1 qd DIFLUCAN 150 MG ORAL TABLET 046061 FLUCONAZOLE Inactive VITAMIN D3 2000 UNIT ORAL TABLET 1 daily, for vitamin D deficien cy VITAMIN D3 2000 UNIT ORAL TABLET CHOLECALCIFEROL Inactive AMOXICILLIN 500 MG ORAL CAPSULE 1 cap by mouth three times a day AMOXICILLIN 500 MG ORAL CAPSULE 685899 AMOXICILLIN Inactive BACTRIM DS 800-160 MG ORAL TABLET 1 tab by mouth twice daily X 10 DAYS BACTRIM DS 800-160 MG ORAL TABLET 882939 TRIMETHOPRIM-SULFAMETHOXAZOLE Inactive TRIMETHOPRIM 100 MG ORAL TABLET 1/2 qd 7 TRIMETHOPRIM 100 MG ORAL TABLET 112798 TRIMETHOPRIM Inactive CETIRIZINE HCL 5 MG ORAL TABLET Take 1 tablet by mouth daily CETIRIZINE HCL 5 MG ORAL TABLET 9301769 CETIRIZINE HCL Inactive PRAMIPEXOLE DIHYDROCHLORIDE 0.125 MG ORAL TABLET take 1 tablet po qhs for restless leg syndrome. PRAMIPEXOLE DIHYD ROCHLORIDE 0.125 MG ORAL TABLET 251861 PRAMIPEXOLE DIHYDROCHLORIDE Inactive MIRTAZAPINE 15 MG ORAL TABLET 1/2 tab by mouth at bedtime. 03/13 MIRTAZAPINE 15 MG ORAL TABLET 529568 MIRTAZAPINE In active DIFLUCAN 100 MG ORAL TABLET 1 tablet by mouth daily X 3 DAYS 201 04/09/01 DIFLUCAN 100 MG ORAL TABLET 503920 FLUCONAZOLE Inac tive DIFLUCAN 100 MG ORAL [...] 30 MG ORAL CAPSULE DELAYED RELEASE PARTICLES 478821 DULOXETINE HCL Inactive CYMBALTA 60 MG ORAL CAPSULE DELAYED RELEASE PARTICLES Take 1 tablet by mouth daily CYMBALTA 60 MG ORAL CAPSULE DELAYED RELEA SE PARTICLES 702861 DULOXETINE HCL Inactive FOSAMAX 70 MG ORAL TABLET 1 po qweek. Take 30min prio r to first food/drink. Avoid lying down x 1 hour. FOSAMAX 70 MG ORAL TA BLET 571755 ALENDRONATE SODIUM Inactive DIFLUCAN 100 MG ORAL TABLET 1 tablet by mouth daily 20 19/08/26 DIFLUCAN 100 MG ORAL TABLET 715368 FLUCONAZOLE Inactive PREDNISONE 20 MG ORAL TABLET 1 tab twice daily for 3 d ay, then one daily for three days PREDNISONE 20 MG ORAL TABLET 340524 PREDNIS ONE Inactive PROAIR HFA 108 (90 BASE) MCG/ACT INHALATION AEROSOL SO LUTION 1 puff every 6 hours as needed PROAIR HFA 108 (90 B ASE) MCG/ACT INHALATION AEROSOL SOLUTION ALBUTEROL SULFATE Inactive MECLIZINE HCL 25 MG ORAL TABLET one tab po qday prn dizziness 20 17/09/06 MECLIZINE HCL 25 MG ORAL TABLET 421486 MECLIZINE HCL Inactive PREDNISONE 20 MG ORAL TABLET 1 tablet by mouth twice d aily for 3 days, then 1 tablet daily for 3 days PREDNISONE 20 MG ORAL TA BLET 071978 PREDNISONE Inactive DIFLUCAN 100 MG ORAL TABLET 1 tablet by mouth daily 20 20/06/06 DIFLUCAN 100 MG ORAL TABLET 211066 FLUCONAZOLE Inactive REPHRESH PRO-B ORAL CAPSULE 1 tablet daily REPHRESH PRO-B ORAL CAPSULE LACTOBACILLUS Inactive RED YEAST RICE 600 MG ORAL CAPSULE 1 pill by mouth daily RED YEAST RICE 600 MG ORAL CAPSULE 667971 RED YEAST RICE EXTRACT In active SUDAFED [...] 20 19/02/09 DIFLUCAN 100 MG ORAL TABLET 133902 FLUCONAZOLE Inactive DIFLUCAN 100 MG ORAL TABLET 1 tablet by mouth daily 20 19/02/09 DIFLUCAN 100 MG ORAL TABLET 133980 FLUCONAZOLE Inactive VENLAFAXINE HCL 75 MG ORAL TABLET 1 am 1/2 at noon 201 07/07/09 VENLAFAXINE HCL 75 MG ORAL TABLET 513107 VENLAFAXINE HCL Inacti ve GABAPENTIN 300 MG ORAL CAPSULE 1 po daily GABAPENTIN 300 MG ORAL CAPSULE 389269 GABAPENTIN Inactive SUDAFED 12 HOUR 120 MG ORAL TABLET EXTENDED RELEASE 12 HOUR 1 pill twice daily if needed for congestion SUDAFED 12 HOUR 120 MG ORAL TABLET EXTENDED RELEASE 12 HOUR PSEUDOEPHEDRINE HCL Inactive AMITRIPTYLINE HCL 10 MG ORAL TABLET 1 tablet nightly by mout h for neuropathy AMITRIPTYLINE HCL 10 MG ORAL TABLET 890242 AMITRIPTYLINE HCL Inactive AMITRIPTYLINE HCL 50 MG ORAL TABLET 1 po q hs for sleep AMITRIPTYLINE HCL 50 MG ORAL TABLET 636741 AMITRIPTYLINE HCL Inac tive PREDNISONE 20 MG ORAL TABLET 1 tab twice daily for 3 d ay, then one daily for three days PREDNISONE 20 MG ORAL TABLET 314012 PREDNIS ONE Inactive ROPINIROLE HCL 0.25 MG ORAL TABLET 1 TAB PO Q HS 05/31 ROPINIROLE HCL 0.25 MG ORAL TABLET 106461 ROPINIROLE HCL Inact trent ROPINIROLE HCL 0.5 MG ORAL TABLET 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 ROPINIROLE HCL 0.5 MG ORAL TABLET 194655 ROPINIR OLE HCL Inactive BACTRIM DS 800-160 MG ORAL TABLET 1 tab by mouth twice daily 201 03/03/23 BACTRIM DS 800-160 MG ORAL TABLET 19830105 TRIMETHOPRIM-SULFAMETHOXAZOLE Inactive ZITHROMAX 250 MG ORAL TABLET 2 po today, then 1 po q days 2-5 20 15/02/10 ZITHROMAX 250 MG ORAL TABLET 746087 AZITHROMYCIN Mayela ctive BACTRIM DS 800-160 MG [...] a day AMOXICILLIN 500 MG ORAL CAPSULE 323230 AMOXICILLIN Inactive ZITHROMAX 250 MG ORAL TABLET 2 po today, then 1 po q days 2-5 20 20/04/28 ZITHROMAX 250 MG ORAL TABLET 829760 AZITHROMYCIN [place] ctive DIFLUCAN 100 MG ORAL TABLET 1 [...] -- NO DECISION MADE DURABLE POWER OF GUARD LIEUTENANT FOR HEALTHCARE DISCUSED WITH PATIENT -- FULL [...] Magnesium - Chemistry cholesterol, serum 196 mg/dL 364-768 9858/07/30 triglyceride, serum, fasting 86 mg/dL 30-200 HDL cholesterol, serum 41 mg/dL 32-60 LDL cholesterol, serum 138 mg/dL 0-130 sodium, serum 140 mmol/L 084-295 5279/07/30 carbon dioxide, venous blood 28.6 mmol/L 21.0-32 [...] Negative mg/dL Negative sodium, serum 139 mmol/L 254-832 6019/11/07 carbon dioxide, venous blood 28.4 mmol/L 21.0-32 [...] ative Encounters Code Encounter Date Provider Facility CPT-67020 [id number] Vst-Est Level IV 14:08:03 C BRIDGET Sherman MD [facility]-70588 Level 3 Est. Patient 18:06:36 CDT Tesfaye pearson MD [facility]-39999 [id number] Vst-Est Level IV 17:09:34 C BRIDGET Sherman MD [facility]-77601 Level 3 Est. Patient 17:27:08 CDT León hernandez APRN [facility]-50974 [id number] Vst-Est Level IV 14:00:[address] Tesfaye Sherman MD [facility]-36144 [id number] Vst-Est Level IV 19:27:[address] Tesfaye Sherman MD [facility]-06227 [id number] Vst-Est Level IV 10:41:41 C BRIDGET Sherman MD [facility]-04786 [id number] Vst-Est Level III 09:40:56 CDT Tesfaye Sherman MD [facility]-36655 Level 4 Est. Patient 22:18:12 CDT Tesfaye pearson MD [facility]-45689 Level 4 Est. Patient 14:44:33 WORKFORCE CONSULTANT Tesfaye pearson MD [facility]-23665 Level 4 Est. Patient 13:55:29 WORKFORCE CONSULTANT Tesfaye pearson MD [facility]-14980 Level 4 Est. Patient 17:07:34 WORKFORCE CONSULTANT Tesfaye pearson MD [facility]-25450 Level 4 Est. Patient 13:56:54 CDT Tesfaye pearson MD [facility]-70266 Level 4 Est. Patient 13:24:25 CDT Chelsea sanz APRN [facility]-54852 Level 4 Est. Patient 09:14:56 CDT Tesfaye pearson MD [facility]-15213 Level 4 Est. Patient 18:40:25 WORKFORCE CONSULTANT Tesfaye pearson MD [facility]-75713 Level 4 Est. Patient 18:13:07 WORKFORCE CONSULTANT Tesfaye pearson MD [facility]-55965 Level 3 Est. Patient 10:46:32 CDT Rj cotto DO [facility]-62111 Level 4 Est. Patient 20:19:25 CDT Tesfaye pearson MD [facility]-99810 Level 3 Est. Patient 09:07:31 CDT Tesfaye pearson MD [facility]-96772 Level 4 Est. Patient 13:12:56 CDT Tesfaye pearson MD [facility]-42625 Level 4 Est. Patient 21:24:55 WORKFORCE CONSULTANT Tesfaye pearson MD [facility]-09713 Level 3 Est. Patient 13:45:04 WORKFORCE CONSULTANT Tesfaye pearson MD [facility] CPT-33788 Level 4 Est. Patient 13:50:45 CDT Tesfaye pearson MD [facility] CPT-76893 Level 3 Est. Patient 10:16:10 CDT Tesfaye pearson MD [facility] CPT-64663 Level 3 Est. Patient 16:36:07 WORKFORCE CONSULTANT Kayla jameson MD [facility] CPT-99410 Level 4 Est. Patient 16:00:14 WORKFORCE CONSULTANT Tesfaye pearson MD [facility] CPT-96481 Level 4 Est. Patient 11:02:24 WORKFORCE CONSULTANT Tesfaye pearson MD [facility] CPT-36591 Level 3 Est. Patient 20:21:43 WORKFORCE CONSULTANT Kayla jameson MD [facility]-38097 Level 3 Est. Patient 13:27:28 WORKFORCE CONSULTANT Kayla jameson MD [facility] CPT-72282 Level 4 Est. Patient 15:57:17 WORKFORCE CONSULTANT Tesfaye pearson MD [facility] CPT-71788 Level 3 New Patient 13:25:47 CDT Tesfaye kidd MD [facility] CPT-24002 Level 3 New Patient 17:22:21 CDT Kayla angel MD [facility] Procedures Code Procedure Name Date Entry Date Standard Desc ription CPT-64227 Venipuncture Draw Fee 16:12:22 CDT CPT-G0439 Subsequent Annual Wellness Exam 18:06:36 CDT CPT-G0439 Subsequent Annual Wellness Exam 22:18:11 CDT CPT-04841 Bone Density - XRAY USE ONLY 11:43:58 CDT 2 CPT-86413 Bone Density - XRAY USE ONLY 10:05:16 CDT 2 CPT-18221 Prv Med New Pt 40-64 yrs 18:19:25 CDT 2016 CPT-39110 Foot, right, comp min 3V - XRAY USE ONLY 10:38:34 CDT CPT-G0439 Subsequent Annual Wellness Exam 13:55:04 CDT CPT-G0438 Initial Annual Wellness Exam 11:23:17 CD T CPT-J2930 Solu Medrol 125 mg (Methyl Prednisolone Sodium Succinate) 17:29:12 WORKFORCE CONSULTANT CPT-20844 Abx/Therapy Injection 17:29:11 WORKFORCE CONSULTANT CPT-J2930 Solu Medrol 125 mg (Methyl Prednisolone Sodium Succinate) 12:34:38 WORKFORCE CONSULTANT CPT-J3420 Vitamin B12 1000mcg (Cyanocobalamin) 09:12:55 CDT CPT-J3420 Vitamin B12 1000mcg (Cyanocobalamin) 16:28:06 WORKFORCE CONSULTANT CPT-34092 Venipuncture Draw Fee 08:39:53 CDT CPT-J3420 Vitamin B12 1000mcg (Cyanocobalamin) 08:46:22 CDT CPT-68297 Abx/Therapy Injection 08:46:22 CDT CPT-J3420 Vitamin B12 1000mcg (Cyanocobalamin) 08:41:26 CDT CPT-56516 Abx/Therapy Injection 08:41:26 CDT CPT-J3420 Vitamin B12 1000mcg (Cyanocobalamin) 08:57:15 CDT CPT-95173 Abx/Therapy Injection 08:57:15 CDT CPT-J3420 Vitamin B12 1000mcg (Cyanocobalamin) 10:59:03 CDT CPT-01314 Abx/Therapy Injection 10:59:03 CDT CPT-J3420 Vitamin B12 1000mcg (Cyanocobalamin) 15:05:39 CDT CPT-50108 Abx/Therapy Injection 15:05:39 CDT CPT-J3420 Vitamin B12 1000mcg (Cyanocobalamin) 13:50:45 CDT CPT-J3420 Vitamin B12 1000mcg (Cyanocobalamin) 08:48:55 CDT CPT-92795 Abx/Therapy Injection 08:48:55 CDT CPT-J3420 Vitamin B12 1000mcg (Cyanocobalamin) 09:14:54 CDT CPT-38153 Abx/Therapy Injection 09:14:54 CDT CPT-J3420 Vitamin B12 1000mcg (Cyanocobalamin) 09:06:06 CDT CPT-57244 Abx/Therapy Injection 09:06:06 CDT CPT-J3420 Vitamin B12 1000mcg (Cyanocobalamin) 09:49:14 CDT CPT-30486 Abx/Therapy Injection 09:49:14 CDT CPT-J3420 Vitamin B12 1000mcg (Cyanocobalamin) 09:10:30 WORKFORCE CONSULTANT CPT-66425 Abx/Therapy Injection 09:10:30 WORKFORCE CONSULTANT CPT-J3420 Vitamin B12 1000mcg (Cyanocobalamin) 09:11:07 WORKFORCE CONSULTANT CPT-53352 Abx/Therapy Injection 09:11:07 WORKFORCE CONSULTANT CPT-J3420 Vitamin B12 1000mcg (Cyanocobalamin) 09:57:03 WORKFORCE CONSULTANT CPT-78849 Abx/Therapy Injection 09:57:03 WORKFORCE CONSULTANT CPT-J3420 Vitamin B12 1000mcg (Cyanocobalamin) 09:23:21 WORKFORCE CONSULTANT CPT-11916 Abx/Therapy Injection 09:23:21 WORKFORCE CONSULTANT CPT-39166 Urine Dip (Floor Use Only) 20:21:44 WORKFORCE CONSULTANT 201 02/12/11 CPT-94510 UA Dip Auto (Floor Use Only) 10:04:39 WORKFORCE CONSULTANT 2 CPT-01396 Urine Dip (Floor Use Only) 13:27:28 WORKFORCE CONSULTANT 201 02/12/01 CPT-50357 Bladder Scan 13:27:28 WORKFORCE CONSULTANT CPT-58085 Abd single AP View 14:30:51 WORKFORCE CONSULTANT CPT-OV Office Visit 10:15:43 CDT CPT-32172 Urine Dip (Floor Use Only) 17:22:21 CDT 201 02/09/02 CPT-32098 Bladder Scan 17:22:21 CDT
--- OUTSIDE RECORDS SUMMARY | 2020-05-05 11:19 | XMS REPORT | Clinical Summary ---
Author Author Talon, Jeri Wood Organization [employer] Address Unknown Phone Unavailable Allergies, Adverse Reactions, [...] Sherman MD Routine general medical examination at [facility] acility Sinusitis 461.9 Resolved Tesfaye [...] MD Routine general medical examination at a [facility] acility Body Mass Index 21.0-21.9 [...] bilateral 782.3 Active 201 07/07/09 León Kodi [employer] Edema Peripheral neuropathy 356.9 Active Tesfaye lamb [...] for rest less leg syndrome. ROPINIROLE HCL 52791706948 No Longer Active MARCUS Panchal Active ROPINIROLE HCL 1 MG ORAL TABLET 1 tab po q hs R OPINIROLE HCL 29008511476 Active MARCUS Maravilla Active ROPINIROLE HCL 0.25 MG ORAL TABLET 1 TAB PO Q HS 05/31 ROPINIROLE HCL 31730060860 No Longer Active Tesfaye Sherman MD Ac tive PREDNISONE 20 MG ORAL TABLET 1 tab twice daily for 3 d ay, then one daily for three days PREDNISONE 98689467492 No Longer Active Tesfaye Shermna MD Active AMITRIPTYLINE HCL 50 MG ORAL TABLET 1 po q hs for sleep AMITRIPTYLINE HCL 47839646497 No Longer Active Tesfaye Sherman MD Active AMITRIPTYLINE HCL 10 MG ORAL TABLET 1 tablet nightly by mout h for neuropathy AMITRIPTYLINE HCL 65892293596 No Longer Active MARCUS Stapleton Active DIFLUCAN 100 MG ORAL TABLET 1 tablet by mouth daily 20 21/03/11 FLUCONAZOLE 91858006706 No Longer Active Tesfaye Sherman MD Acti ve BACTRIM DS 800-160 MG ORAL TABLET 1 tab by mouth twice daily 201 07/08/06 TRIMETHOPRIM-SULFAMETHOXAZOLE 22223705485 No Longer Active Umer Sherman MD Active CLARITIN 10 MG ORAL TABLET Take one by mouth daily LORATADINE 15645026104 Active Tesfaye Sherman MD Active SUDAFED 12 HOUR 120 MG ORAL TABLET EXTENDED RELEASE 12 HOUR 1 pill twice daily if needed for congestion PSEUDOEPHEDRINE HCL 665325902 13 No Longer Active Tesfaye Sherman MD Active FENOFIBRATE 145 MG ORAL TABLET 1 by mouth daily FENOFIBRATE 05201083715 Active Laurence Dominguez Active GABAPENTIN 300 MG ORAL CAPSULE 1 po daily GABAP ENTIN 77090271736 No Longer Active Tesfaye Sherman MD Active HYDROCHLOROTHIAZIDE 12.5 MG ORAL CAPSULE 1 pill by mough daily 2 HYDROCHLOROTHIAZIDE 64108724137 No Longer Active León Kodi [employer] Active VENLAFAXINE HCL 75 MG ORAL TABLET 1 am 1/ at noon 201 07/07/09 VENLAFAXINE HCL 39786184915 No Longer Active León Kodi [employer] Act trent DIFLUCAN 100 MG ORAL TABLET 1 tablet by mouth daily 20 19/02/09 FLUCONAZOLE 09996742394 No Longer Active León Kodi [employer] Active DIFLUCAN 100 MG ORAL TABLET 1 tablet by mouth daily 20 19/02/09 FLUCONAZOLE 22738009524 No Longer Active León Kodi [employer] Active OXYCODONE-ACETAMINOPHEN 5-325 MG ORAL TABLET Take one tablet by mouth every 6 hours 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 Use sparingly OXYCODONE-ACETAMINOPHEN 34984017712 Active Tesfaye villar MD Active CLONAZEPAM 0.5 MG ORAL TABLET Take 1/2 qam, and 1/2 qpm CLONAZEPAM 75521967283 Active Tesfaye Sherman MD Active PRELIEF 340 (65-50) MG (CA-P) ORAL TABLET CALCIUM GLYCEROPHOSPHATE 88672528652 No Longer Active Tesfaye Sherman MD Active SUDAFED 24 HOUR 240 MG ORAL TABLET EXTENDED RELEASE 24 HOUR 1 tab po daily PSEUDOEPHEDRINE HCL 30378735773 No Longer Active Raul Sherman MD Active RED YEAST RICE 600 MG ORAL CAPSULE 1 pill by mouth daily RED YEAST RICE EXTRACT 90366576277 No Longer Active Tesfaye Sherman MD Active REPHRESH PRO-B ORAL CAPSULE 1 tablet daily LACT OBACILLUS 17922681709 No Longer Active Tesfaye Sherman MD Active ABILIFY 2 MG ORAL TABLET 1 by mouth daily. MARIA ELENA PIPRAZOLE 83577398674 Active Tesfaye Sherman MD Active CYMBALTA 60 MG ORAL CAPSULE DELAYED RELEASE PARTICLES 1 cap by mouth daily for pain DULOXETINE HCL 52800018155 Active MARCUS Lindsay Active DIFLUCAN 100 MG ORAL TABLET 1 tablet by mouth daily 20 20/06/06 FLUCONAZOLE 70917952747 No Longer Active Tesfaye Sherman MD Acti ve PREDNISONE 20 MG ORAL TABLET 1 tablet by mouth twice d aily for 3 days, then 1 tablet daily for 3 days PREDNISONE 03617969993 No L onger Active Tesfaye Sherman MD Active BACTRIM DS 800-160 MG ORAL TABLET 1 tab by mouth twice daily 201 06/09/02 TRIMETHOPRIM-SULFAMETHOXAZOLE 00861808121 No Longer Active Fer Dominguez Active DIFLUCAN 100 MG ORAL TABLET 1 tablet by mouth daily 20 20/05/01 FLUCONAZOLE 10120880638 No Longer Active Tesfaye Sherman MD Acti ve ZITHROMAX 250 MG ORAL TABLET 2 po today, then 1 po q days 2-5 20 20/04/28 AZITHROMYCIN 61078496204 No Longer Active Tesfaye Sherman MD Active MECLIZINE HCL 25 MG ORAL TABLET one tab po qday prn dizziness 20 17/09/06 MECLIZINE HCL 76491223400 No Longer Active Tesfaye Sherman MD Active PROAIR HFA 108 (90 BASE) MCG/ACT INHALATION AEROSOL SO LUTION 1 puff every 6 hours as needed ALBUTEROL SULFATE 14738776132 No Long er Active Tesfaye Sherman MD Active PREDNISONE 20 MG ORAL TABLET 1 tab twice daily for 3 d ay, then one daily for three days PREDNISONE 54382952079 No Longer Active Tesfaye Sherman MD Active MECLIZINE HCL 25 MG ORAL TABLET one 4 times a day as needed for dizziness MECLIZINE HCL 43112849385 Active Tesfaye Sherman MD Active AMOXICILLIN 500 MG ORAL CAPSULE 1 cap by mouth three times a day AMOXICILLIN 52892414323 No Longer Active Laurence Raida Acti ve DIFLUCAN 100 MG ORAL TABLET 1 tablet by mouth daily 20 19/08/26 FLUCONAZOLE 04066253294 No Longer Active Tesfaye Sherman MD Acti ve BACTRIM DS 800-160 MG ORAL TABLET 1 tab by mouth twice daily 201 05/10/28 TRIMETHOPRIM-SULFAMETHOXAZOLE 58534285130 No Longer Active Fer mastersa Angelica Active FOSAMAX 70 MG ORAL TABLET 1 po qweek. Take 30min prio r to first food/drink. Avoid lying down x 1 hour. ALENDRONATE SODIUM 09885981 144 No Longer Active Laurence Dominguez Active CYMBALTA 60 MG ORAL CAPSULE DELAYED RELEASE PARTICLES Take 1 tablet by mouth daily DULOXETINE HCL 21441088022 No Longer Active Edith Burch MD Active CYMBALTA 30 MG ORAL CAPSULE DELAYED RELEASE PARTICLES 1 cap by mouth daily with 60mg DULOXETINE HCL 38346324699 No Longer Active Jordan Burch MD Active FISH OIL 1000 MG ORAL CAPSULE DELAYED RELEASE 1 pill b y mouth daily for cholesterol OMEGA-3 FATTY ACIDS 17824263539 Active Cee Jaffe LPN Active DIFLUCAN 100 MG ORAL TABLET 1 tablet by mouth daily 20 19/03/05 FLUCONAZOLE 21714603416 No Longer Active Tesfaye Sherman MD Acti ve BACTRIM DS 800-160 MG ORAL TABLET 1 tab by mouth twice daily 201 05/06/28 TRIMETHOPRIM-SULFAMETHOXAZOLE 69869657010 No Longer Active Umer Sherman MD Active BACTRIM DS 800-160 MG ORAL TABLET 1 tab by mouth twice daily 201 05/04/15 TRIMETHOPRIM-SULFAMETHOXAZOLE 15242966755 No Longer Active Umer Sherman MD Active DIFLUCAN 150 MG ORAL TABLET 1 tablet by mouth daily 20 18/09/20 FLUCONAZOLE 00259725505 No Longer Active Tesfaye Sherman MD Acti ve BACTRIM DS 800-160 MG ORAL TABLET 1 tab by mouth twice daily 201 04/13/17 TRIMETHOPRIM-SULFAMETHOXAZOLE 72288895022 No Longer Active Umer Sherman MD Active CEFTIN 250 MG ORAL TABLET 1 tablet twice daily x 7 days CEFUROXIME AXETIL 51730855130 No Longer Active Tesfaye Sherman MD Active DIFLUCAN 100 MG ORAL TABLET 1 tablet by mouth every other da y for 2 doses FLUCONAZOLE 38197467539 No Longer Active Tesfaye barron MD Active DIFLUCAN 100 MG ORAL TABLET 1 tablet by mouth daily X 3 DAYS 201 04/09/01 FLUCONAZOLE 60828601042 No Longer Active Rj Lyons tive MIRTAZAPINE 15 MG ORAL TABLET 1/2 tab by mouth at bedtime. 03/13 MIRTAZAPINE 33670306654 No Longer Active Tesfaye Sherman MD Active BACTRIM DS 800-160 MG ORAL TABLET 1 tab by mouth twice daily 201 04/09/01 TRIMETHOPRIM-SULFAMETHOXAZOLE 25241770532 No Longer Active Umer Sherman MD Active PRAMIPEXOLE DIHYDROCHLORIDE 0.125 MG ORAL TABLET take 1 tablet po qhs for restless leg syndrome. PRAMIPEXOLE DIHYDROCHLORI DE 74408059434 No Longer Active Tesfaye Sherman MD Active MAGNESIUM 400 MG ORAL TABLET 1 tab po daily MAGNE SIUM 38634964323 Active Chelsea Cardenas APRN Active CETIRIZINE HCL 5 MG ORAL TABLET Take 1 tablet by mouth daily CETIRIZINE HCL 28051628790 No Longer Active Chelsea Cardenas APRN Activ e TRIMETHOPRIM 100 MG ORAL TABLET 1/2 qd TRIM ETHOPRIM 59971718384 No Longer Active Chelsea Cardenas APRN Active BACTRIM DS 800-160 MG ORAL TABLET 1 tab by mouth twice daily 201 04/04/11 TRIMETHOPRIM-SULFAMETHOXAZOLE 74118591022 No Longer Active Umer Sherman MD Active BACTRIM DS 800-160 MG ORAL TABLET 1 tab by mouth twice daily X 10 DAYS TRIMETHOPRIM-SULFAMETHOXAZOLE 64916915021 No Longer Active Tesfaye Sherman MD Active AMOXICILLIN 500 MG ORAL CAPSULE 1 cap by mouth three times a day AMOXICILLIN 26802582383 No Longer Active Adriana Arredondo, A A ctive B-12 1000 MCG ORAL LOZENGE 1 tab po daily CYANO COBALAMIN 26225846781 Active Tesfaye Sherman MD Active VITAMIN D3 2000 UNIT ORAL TABLET 1 daily, for vitamin D deficien cy CHOLECALCIFEROL 34279615110 No Longer Active Tesfaye Sherman MD Active TIZANIDINE HCL 2 MG ORAL TABLET take 1-2 tablet by [facility] every day at bedtime at 9pm PRN TIZANIDINE HCL 18761357283 Active Tesfaye hewitt MD Active ZITHROMAX 250 MG ORAL TABLET 2 po today, then 1 po q days 2-5 20 15/02/10 AZITHROMYCIN 70084324988 No Longer Active Tesfaye Sherman MD Active BACTRIM DS 800-160 MG ORAL TABLET 1 tab by mouth twice daily 201 03/03/23 TRIMETHOPRIM-SULFAMETHOXAZOLE 91973072051 No Longer Active Umer Sherman MD Active [facility] NIACIN FLUSH FREE 400-100 MG ORAL CAPSULE 1 daily NIACIN-INOSITOL 12590828718 Active Kayla Cooper MD Activ e DIFLUCAN 150 MG ORAL TABLET 1 qd FLUCONAZOL E 77501062921 No Longer Active Kayla Cooper MD Active FLUTICASONE PROPIONATE 50 MCG/ACT NASAL SUSPENSION 1 spray each nostril twice daily FLUTICASONE PROPIONATE 00082276913 Active Umer Sherman MD Active LOVASTATIN 20 MG ORAL TABLET Take 1 tablet by mouth daily LOVASTATIN 12635399514 No Longer Active Tesfaye Sherman MD Acti ve MELOXICAM 7.5 MG ORAL TABLET 1 tablet by mouth daily 2 MELOXICAM 95725318080 No Longer Active Tesfaye Sherman MD Acti ve GABAPENTIN 300 MG ORAL CAPSULE Take two tablets by mouth every e vening GABAPENTIN 43957950027 No Longer Active Edith Burch MD A ctive BACLOFEN 10 MG ORAL TABLET Take one tablet by mouth three times a d ay BACLOFEN 63885111765 Active Kayla Cooper MD Active GABAPENTIN 300 MG ORAL CAPSULE Take two tablets by mouth every e vening GABAPENTIN 300 MG ORAL CAPSULE 645099 GABAPENTIN I nactive MELOXICAM 7.5 MG ORAL TABLET 1 tablet by mouth daily 2 MELOXICAM 7.5 MG ORAL TABLET 378726 MELOXICAM Inactive LOVASTATIN 20 MG ORAL TABLET Take 1 tablet by mouth daily LOVASTATIN 20 MG ORAL TABLET 929819 LOVASTATIN Inactive DIFLUCAN 150 MG ORAL TABLET 1 qd DIFLUCAN 150 MG ORAL TABLET 451641 FLUCONAZOLE Inactive VITAMIN D3 2000 UNIT ORAL TABLET 1 daily, for vitamin D deficien cy VITAMIN D3 2000 UNIT ORAL TABLET CHOLECALCIFEROL Inactive AMOXICILLIN 500 MG ORAL CAPSULE 1 cap by mouth three times a day AMOXICILLIN 500 MG ORAL CAPSULE 149924 AMOXICILLIN Inactive BACTRIM DS 800-160 MG ORAL TABLET 1 tab by mouth twice daily X 10 DAYS BACTRIM DS 800-160 MG ORAL TABLET 824217 TRIMETHOPRIM-SULFAMETHOXAZOLE Inactive TRIMETHOPRIM 100 MG ORAL TABLET 1/2 qd 7 TRIMETHOPRIM 100 MG ORAL TABLET 581499 TRIMETHOPRIM Inactive CETIRIZINE HCL 5 MG ORAL TABLET Take 1 tablet by mouth daily CETIRIZINE HCL 5 MG ORAL TABLET 9621866 CETIRIZINE HCL Inactive PRAMIPEXOLE DIHYDROCHLORIDE 0.125 MG ORAL TABLET take 1 tablet po qhs for restless leg syndrome. PRAMIPEXOLE DIHYD ROCHLORIDE 0.125 MG ORAL TABLET 687015 PRAMIPEXOLE DIHYDROCHLORIDE Inactive MIRTAZAPINE 15 MG ORAL TABLET 1/2 tab by mouth at bedtime. 03/13 MIRTAZAPINE 15 MG ORAL TABLET 107855 MIRTAZAPINE In active DIFLUCAN 100 MG ORAL TABLET 1 tablet by mouth daily X 3 DAYS 201 04/09/01 DIFLUCAN 100 MG ORAL TABLET 228184 FLUCONAZOLE Inac tive DIFLUCAN 100 MG ORAL [...] 30 MG ORAL CAPSULE DELAYED RELEASE PARTICLES 503502 DULOXETINE HCL Inactive CYMBALTA 60 MG ORAL CAPSULE DELAYED RELEASE PARTICLES Take 1 tablet by mouth daily CYMBALTA 60 MG ORAL CAPSULE DELAYED RELEA SE PARTICLES 337843 DULOXETINE HCL Inactive FOSAMAX 70 MG ORAL TABLET 1 po qweek. Take 30min prio r to first food/drink. Avoid lying down x 1 hour. FOSAMAX 70 MG ORAL TA BLET 501730 ALENDRONATE SODIUM Inactive DIFLUCAN 100 MG ORAL TABLET 1 tablet by mouth daily 20 19/08/26 DIFLUCAN 100 MG ORAL TABLET 278237 FLUCONAZOLE Inactive PREDNISONE 20 MG ORAL TABLET 1 tab twice daily for 3 d ay, then one daily for three days PREDNISONE 20 MG ORAL TABLET 703710 PREDNIS ONE Inactive PROAIR HFA 108 (90 BASE) MCG/ACT INHALATION AEROSOL SO LUTION 1 puff every 6 hours as needed PROAIR HFA 108 (90 B ASE) MCG/ACT INHALATION AEROSOL SOLUTION ALBUTEROL SULFATE Inactive MECLIZINE HCL 25 MG ORAL TABLET one tab po qday prn dizziness 20 17/09/06 MECLIZINE HCL 25 MG ORAL TABLET 410332 MECLIZINE HCL Inactive PREDNISONE 20 MG ORAL TABLET 1 tablet by mouth twice d aily for 3 days, then 1 tablet daily for 3 days PREDNISONE 20 MG ORAL TA BLET 020591 PREDNISONE Inactive DIFLUCAN 100 MG ORAL TABLET 1 tablet by mouth daily 20 20/06/06 DIFLUCAN 100 MG ORAL TABLET 411985 FLUCONAZOLE Inactive REPHRESH PRO-B ORAL CAPSULE 1 tablet daily REPHRESH PRO-B ORAL CAPSULE LACTOBACILLUS Inactive RED YEAST RICE 600 MG ORAL CAPSULE 1 pill by mouth daily RED YEAST RICE 600 MG ORAL CAPSULE 920259 RED YEAST RICE EXTRACT In active SUDAFED [...] 20 19/02/09 DIFLUCAN 100 MG ORAL TABLET 712337 FLUCONAZOLE Inactive DIFLUCAN 100 MG ORAL TABLET 1 tablet by mouth daily 20 19/02/09 DIFLUCAN 100 MG ORAL TABLET 125923 FLUCONAZOLE Inactive VENLAFAXINE HCL 75 MG ORAL TABLET 1 am 1/2 at noon 201 07/07/09 VENLAFAXINE HCL 75 MG ORAL TABLET 613551 VENLAFAXINE HCL Inacti ve GABAPENTIN 300 MG ORAL CAPSULE 1 po daily GABAPENTIN 300 MG ORAL CAPSULE 682633 GABAPENTIN Inactive SUDAFED 12 HOUR 120 MG ORAL TABLET EXTENDED RELEASE 12 HOUR 1 pill twice daily if needed for congestion SUDAFED 12 HOUR 120 MG ORAL TABLET EXTENDED RELEASE 12 HOUR PSEUDOEPHEDRINE HCL Inactive AMITRIPTYLINE HCL 10 MG ORAL TABLET 1 tablet nightly by mout h for neuropathy AMITRIPTYLINE HCL 10 MG ORAL TABLET 797661 AMITRIPTYLINE HCL Inactive AMITRIPTYLINE HCL 50 MG ORAL TABLET 1 po q hs for sleep AMITRIPTYLINE HCL 50 MG ORAL TABLET 033514 AMITRIPTYLINE HCL Inac tive PREDNISONE 20 MG ORAL TABLET 1 tab twice daily for 3 d ay, then one daily for three days PREDNISONE 20 MG ORAL TABLET 461985 PREDNIS ONE Inactive ROPINIROLE HCL 0.25 MG ORAL TABLET 1 TAB PO Q HS 05/31 ROPINIROLE HCL 0.25 MG ORAL TABLET 748315 ROPINIROLE HCL Inact trent ROPINIROLE HCL 0.5 MG ORAL TABLET 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 ROPINIROLE HCL 0.5 MG ORAL TABLET 671475 ROPINIR OLE HCL Inactive BACTRIM DS 800-160 MG ORAL TABLET 1 tab by mouth twice daily 201 03/03/23 BACTRIM DS 800-160 MG ORAL TABLET 19830105 TRIMETHOPRIM-SULFAMETHOXAZOLE Inactive ZITHROMAX 250 MG ORAL TABLET 2 po today, then 1 po q days 2-5 20 15/02/10 ZITHROMAX 250 MG ORAL TABLET 177364 AZITHROMYCIN Mayela ctive BACTRIM DS 800-160 MG [...] a day AMOXICILLIN 500 MG ORAL CAPSULE 791543 AMOXICILLIN Inactive ZITHROMAX 250 MG ORAL TABLET 2 po today, then 1 po q days 2-5 20 20/04/28 ZITHROMAX 250 MG ORAL TABLET 140717 AZITHROMYCIN [place] ctive DIFLUCAN 100 MG ORAL TABLET 1 [...] -- NO DECISION MADE DURABLE POWER OF MANAGER MARKET FOR HEALTHCARE DISCUSED WITH PATIENT -- FULL [...] weight E&M 112.50 [lb_av] Weight Measure d blood pressure, diastolic 83 mm[Hg] BP lyon blood pressure, systolic 132 mm[Hg] BP sys height E&M 62 [in_us] Bdy height temperature E&M 97.6 [degF] Body temp erature weight E&M 116 [lb_av] Weight Measure d Diagnostic Results Date Name Value Unit Range Description Lab Report: Lipid Panel, Comp. Metabolic Panel, Magnesium - Chemistry cholesterol, serum 196 mg/dL 001-444 3857/07/30 triglyceride, serum, fasting 86 mg/dL 30-200 HDL cholesterol, serum 41 mg/dL 32-60 LDL cholesterol, serum 138 mg/dL 0-130 sodium, serum 140 mmol/L 411-805 2244/07/30 carbon dioxide, venous blood 28.6 mmol/L 21.0-32 [...] Negative mg/dL Negative sodium, serum 139 mmol/L 368-807 5194/11/07 carbon dioxide, venous blood 28.4 mmol/L 21.0-32 [...] ative Encounters Code Encounter Date Provider Facility CPT-88671 [id number] Vst-Est Level IV 14:08:03 C BRIDGET Sherman MD [facility] CPT-46158 Level 3 Est. Patient 18:06:36 CDT Tesfaye pearson MD [facility] CPT-26338 [id number] Vst-Est Level IV 17:09:34 C BRIDGET Sherman MD [facility] CPT-39089 Level 3 Est. Patient 17:27:08 CDT León hernandez APRN [facility]-84448 92283-Cmb Vst-Est Level IV 14:00:[address] Tesfaye Sherman MD [facility] CPT-16852 [id number] Vst-Est Level IV 19:27:[address] Tesfaye Sherman MD [facility] CPT-08350 [id number] Vst-Est Level IV 10:41:41 C DT Tesfaye Sherman MD [facility] CPT-76119 11502-Krb Vst-Est Level III 09:40:56 CDT Tesfaye Sherman MD [facility] CPT-99727 Level 4 Est. Patient 22:18:12 CDT Tesfaye pearson MD [facility] CPT-27040 Level 4 Est. Patient 14:44:33 SERVICE CENTER ASSISTANT Tesfaye pearson MD [facility] CPT-23742 Level 4 Est. Patient 13:55:29 SERVICE CENTER ASSISTANT Tesfaye pearson MD [facility] CPT-60972 Level 4 Est. Patient 17:07:34 SERVICE CENTER ASSISTANT Tesfaye pearson MD [facility] CPT-00241 Level 4 Est. Patient 13:56:54 CDT Tesfaye pearson MD [facility] CPT-81499 Level 4 Est. Patient 13:24:25 CDT Chelsea sanz APRN [facility] CPT-81776 Level 4 Est. Patient 09:14:56 CDT Tesfaye pearson MD [facility] CPT-75902 Level 4 Est. Patient 18:40:25 SERVICE CENTER ASSISTANT Tesfaye pearson MD [facility] CPT-82253 Level 4 Est. Patient 18:13:07 SERVICE CENTER ASSISTANT Tesfaye pearson MD [facility] CPT-80865 Level 3 Est. Patient 10:46:32 CDT Rj cotto DO [facility] CPT-13909 Level 4 Est. Patient 20:19:25 CDT Tesfaye pearson MD [facility] CPT-56231 Level 3 Est. Patient 09:07:31 CDT Tesfaye pearson MD [facility] CPT-60906 Level 4 Est. Patient 13:12:56 CDT Tesfaye pearson MD [facility] CPT-65104 Level 4 Est. Patient 21:24:55 SERVICE CENTER ASSISTANT Tesfaye pearson MD [facility] CPT-77586 Level 3 Est. Patient 13:45:04 SERVICE CENTER ASSISTANT Tesfaye pearson MD [facility] CPT-00643 Level 4 Est. Patient 13:50:45 CDT Tesfaye pearson MD [facility] CPT-42078 Level 3 Est. Patient 10:16:10 CDT Tesfaye pearson MD [facility] CPT-74245 Level 3 Est. Patient 16:36:07 SERVICE CENTER ASSISTANT Kayla jameson MD [facility] CPT-62741 Level 4 Est. Patient 16:00:14 SERVICE CENTER ASSISTANT Tesfaye pearosn MD [facility] CPT-40401 Level 4 Est. Patient 11:02:24 SERVICE CENTER ASSISTANT Tesfaye pearson MD [facility] CPT-64643 Level 3 Est. Patient 20:21:43 SERVICE CENTER ASSISTANT Kayla jameson MD [facility]-15458 Level 3 Est. Patient 13:27:28 SERVICE CENTER ASSISTANT Kayla jameson MD [facility]-87548 Level 4 Est. Patient 15:57:17 SERVICE CENTER ASSISTANT Tesfaye pearson MD [facility] CPT-98500 Level 3 New Patient 13:25:47 CDT Tesfaye kidd MD [facility] CPT-65887 Level 3 New Patient 17:22:21 CDT Kayla angel MD [facility] Procedures Code Procedure Name Date Entry Date Standard Desc ription CPT-25820 Venipuncture Draw Fee 16:12:22 CDT CPT-G0439 Subsequent Annual Wellness Exam 18:06:36 CDT CPT-G0439 Subsequent Annual Wellness Exam 22:18:11 CDT CPT-51387 Bone Density - XRAY USE ONLY 11:43:58 CDT 2 CPT-41296 Bone Density - XRAY USE ONLY 10:05:16 CDT 2 CPT-41521 Prv Med New Pt 40-64 yrs 18:19:25 CDT 2016 CPT-52877 Foot, right, comp min 3V - XRAY USE ONLY 10:38:34 CDT CPT-G0439 Subsequent Annual Wellness Exam 13:55:04 CDT CPT-G0438 Initial Annual Wellness Exam 11:23:17 CD T CPT-J2930 Solu Medrol 125 mg (Methyl Prednisolone Sodium Succinate) 17:29:12 SERVICE CENTER ASSISTANT CPT-39741 Abx/Therapy Injection 17:29:11 SERVICE CENTER ASSISTANT CPT-J2930 Solu Medrol 125 mg (Methyl Prednisolone Sodium Succinate) 12:34:38 SERVICE CENTER ASSISTANT CPT-J3420 Vitamin B12 1000mcg (Cyanocobalamin) 09:12:55 CDT CPT-J3420 Vitamin B12 1000mcg (Cyanocobalamin) 16:28:06 SERVICE CENTER ASSISTANT CPT-01289 Venipuncture Draw Fee 08:39:53 CDT CPT-J3420 Vitamin B12 1000mcg (Cyanocobalamin) 08:46:22 CDT CPT-18913 Abx/Therapy Injection 08:46:22 CDT CPT-J3420 Vitamin B12 1000mcg (Cyanocobalamin) 08:41:26 CDT CPT-78432 Abx/Therapy Injection 08:41:26 CDT CPT-J3420 Vitamin B12 1000mcg (Cyanocobalamin) 08:57:15 CDT CPT-25003 Abx/Therapy Injection 08:57:15 CDT CPT-J3420 Vitamin B12 1000mcg (Cyanocobalamin) 10:59:03 CDT CPT-24628 Abx/Therapy Injection 10:59:03 CDT CPT-J3420 Vitamin B12 1000mcg (Cyanocobalamin) 15:05:39 CDT CPT-07792 Abx/Therapy Injection 15:05:39 CDT CPT-J3420 Vitamin B12 1000mcg (Cyanocobalamin) 13:50:45 CDT CPT-J3420 Vitamin B12 1000mcg (Cyanocobalamin) 08:48:55 CDT CPT-18405 Abx/Therapy Injection 08:48:55 CDT CPT-J3420 Vitamin B12 1000mcg (Cyanocobalamin) 09:14:54 CDT CPT-34379 Abx/Therapy Injection 09:14:54 CDT CPT-J3420 Vitamin B12 1000mcg (Cyanocobalamin) 09:06:06 CDT CPT-29142 Abx/Therapy Injection 09:06:06 CDT CPT-J3420 Vitamin B12 1000mcg (Cyanocobalamin) 09:49:14 CDT CPT-84571 Abx/Therapy Injection 09:49:14 CDT CPT-J3420 Vitamin B12 1000mcg (Cyanocobalamin) 09:10:30 SERVICE CENTER ASSISTANT CPT-89218 Abx/Therapy Injection 09:10:30 SERVICE CENTER ASSISTANT CPT-J3420 Vitamin B12 1000mcg (Cyanocobalamin) 09:11:07 SERVICE CENTER ASSISTANT CPT-61983 Abx/Therapy Injection 09:11:07 SERVICE CENTER ASSISTANT CPT-J3420 Vitamin B12 1000mcg (Cyanocobalamin) 09:57:03 SERVICE CENTER ASSISTANT CPT-02875 Abx/Therapy Injection 09:57:03 SERVICE CENTER ASSISTANT CPT-J3420 Vitamin B12 1000mcg (Cyanocobalamin) 09:23:21 SERVICE CENTER ASSISTANT CPT-40703 Abx/Therapy Injection 09:23:21 SERVICE CENTER ASSISTANT CPT-97211 Urine Dip (Floor Use Only) 20:21:44 SERVICE CENTER ASSISTANT 201 02/12/11 CPT-96594 UA Dip Auto (Floor Use Only) 10:04:39 SERVICE CENTER ASSISTANT 2 CPT-97821 Urine Dip (Floor Use Only) 13:27:28 SERVICE CENTER ASSISTANT 201 02/12/01 CPT-20714 Bladder Scan 13:27:28 SERVICE CENTER ASSISTANT CPT-85453 Abd single AP View 14:30:51 SERVICE CENTER ASSISTANT CPT-OV Office Visit 10:15:43 CDT CPT-70721 Urine Dip (Floor Use Only) 17:22:21 CDT 201 02/09/02 CPT-80468 Bladder Scan 17:22:21 CDT
--- OUTSIDE RECORDS SUMMARY | 2020-05-05 11:19 | XMS REPORT | Clinical Summary ---
Author Author Talon, Jeri Wood Organization [employer] Address Unknown Phone Unavailable Allergies, Adverse Reactions, [...] MD Routine general medical examination at a [facility] acility Body Mass Index 21.0-21.9 Adult Refinement [...] Tesfaye Sherman MD Dysuria High risk meds fdc use V58.6 Active Tesfaye Sherman MD Long-term (current) drug use Yeast infection 112.9 Inactive Tesfaye Sherman MD Candidiasis of unspecified site Upper respiratory infection 465.9 Inactive Tesfaye Sherman MD Acute upper respiratory infections of un specified site Lower extremity edema, bilateral 782.3 Active 201 07/07/09 León Kodi GUEST SPECIALIST Edema Peripheral neuropathy 356.9 Active Tesfaye [...] for rest less leg syndrome. ROPINIROLE HCL 28340643349 No Longer Active MARCUS Panchal Active ROPINIROLE HCL 1 MG ORAL TABLET 1 tab po q hs R OPINIROLE HCL 24401700343 Active MARCUS Maravilla Active ROPINIROLE HCL 0.25 MG ORAL TABLET 1 TAB PO Q HS 05/31 ROPINIROLE HCL 55043037172 No Longer Active Tesfaye Sherman MD Ac tive PREDNISONE 20 MG ORAL TABLET 1 tab twice daily for 3 d ay, then one daily for three days PREDNISONE 47313490871 No Longer Active Tesfaye Sherman MD Active AMITRIPTYLINE HCL 50 MG ORAL TABLET 1 po q hs for sleep AMITRIPTYLINE HCL 28357411312 No Longer Active Tesfaye Sherman MD Active AMITRIPTYLINE HCL 10 MG ORAL TABLET 1 tablet nightly by mout h for neuropathy AMITRIPTYLINE HCL 32619942915 No Longer Active MARCUS Stapleton Active DIFLUCAN 100 MG ORAL TABLET 1 tablet by mouth daily 20 21/03/11 FLUCONAZOLE 41549667017 No Longer Active Tesfaye Sherman MD Acti ve BACTRIM DS 800-160 MG ORAL TABLET 1 tab by mouth twice daily 201 07/08/06 TRIMETHOPRIM-SULFAMETHOXAZOLE 75444185425 No Longer Active Umer Sherman MD Active CLARITIN 10 MG ORAL TABLET Take one by mouth daily LORATADINE 66574717616 Active Tesfaye Sherman MD Active SUDAFED 12 HOUR 120 MG ORAL TABLET EXTENDED RELEASE 12 HOUR 1 pill twice daily if needed for congestion PSEUDOEPHEDRINE HCL 548915643 13 No Longer Active Tesfaye Sherman MD Active FENOFIBRATE 145 MG ORAL TABLET 1 by mouth daily FENOFIBRATE 29010914652 Active Laurence Dominguez Active GABAPENTIN 300 MG ORAL CAPSULE 1 po daily GABAP ENTIN 45514378491 No Longer Active Tesfaye Sherman MD Active HYDROCHLOROTHIAZIDE 12.5 MG ORAL CAPSULE 1 pill by mough daily 2 HYDROCHLOROTHIAZIDE 46111432276 No Longer Active León Kodi GUEST SPECIALIST Active VENLAFAXINE HCL 75 MG ORAL TABLET 1 am 1/ at noon 201 07/07/09 VENLAFAXINE HCL 66102586173 No Longer Active León Kodi GUEST SPECIALIST Act trent DIFLUCAN 100 MG ORAL TABLET 1 tablet by mouth daily 20 19/02/09 FLUCONAZOLE 63880166194 No Longer Active León Kodi GUEST SPECIALIST Active DIFLUCAN 100 MG ORAL TABLET 1 tablet by mouth daily 20 19/02/09 FLUCONAZOLE 01788936938 No Longer Active León Kodi GUEST SPECIALIST Active OXYCODONE-ACETAMINOPHEN 5-325 MG ORAL TABLET Take one tablet by mouth every 6 hours 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 Use sparingly OXYCODONE-ACETAMINOPHEN 09158876685 Active Tesfaye villar MD Active CLONAZEPAM 0.5 MG ORAL TABLET Take 1/2 qam, and 1/2 qpm CLONAZEPAM 97480657317 Active Tesfaye Sherman MD Active PRELIEF 340 (65-50) MG (CA-P) ORAL TABLET CALCIUM GLYCEROPHOSPHATE 29060502557 No Longer Active Tesfaye Sherman MD Active SUDAFED 24 HOUR 240 MG ORAL TABLET EXTENDED RELEASE 24 HOUR 1 tab po daily PSEUDOEPHEDRINE HCL 78300412070 No Longer Active Raul Sherman MD Active RED YEAST RICE 600 MG ORAL CAPSULE 1 pill by mouth daily RED YEAST RICE EXTRACT 61725468731 No Longer Active Tesfaye Sherman MD Active REPHRESH PRO-B ORAL CAPSULE 1 tablet daily LACT OBACILLUS 40871987982 No Longer Active Tesfaye Sherman MD Active ABILIFY 2 MG ORAL TABLET 1 by mouth daily. MARIA ELENA PIPRAZOLE 17866055939 Active Tesfaye Sherman MD Active CYMBALTA 60 MG ORAL CAPSULE DELAYED RELEASE PARTICLES 1 cap by mouth daily for pain DULOXETINE HCL 94053139334 Active MARCUS Lindsay Active DIFLUCAN 100 MG ORAL TABLET 1 tablet by mouth daily 20 20/06/06 FLUCONAZOLE 34268193049 No Longer Active Tesfaye Sherman MD Acti ve PREDNISONE 20 MG ORAL TABLET 1 tablet by mouth twice d aily for 3 days, then 1 tablet daily for 3 days PREDNISONE 31209938210 No L onger Active Tesfaye Sherman MD Active BACTRIM DS 800-160 MG ORAL TABLET 1 tab by mouth twice daily 201 06/09/02 TRIMETHOPRIM-SULFAMETHOXAZOLE 88087381380 No Longer Active Fer Dominguez Active DIFLUCAN 100 MG ORAL TABLET 1 tablet by mouth daily 20 20/05/01 FLUCONAZOLE 47804922091 No Longer Active Tesfaye Sherman MD Acti ve ZITHROMAX 250 MG ORAL TABLET 2 po today, then 1 po q days 2-5 20 20/04/28 AZITHROMYCIN 64082437029 No Longer Active Tesfaye Sherman MD Active MECLIZINE HCL 25 MG ORAL TABLET one tab po qday prn dizziness 20 17/09/06 MECLIZINE HCL 34125161081 No Longer Active Tesfaye Sherman MD Active PROAIR HFA 108 (90 BASE) MCG/ACT INHALATION AEROSOL SO LUTION 1 puff every 6 hours as needed ALBUTEROL SULFATE 98621276457 No Long er Active Tesfaye Sherman MD Active PREDNISONE 20 MG ORAL TABLET 1 tab twice daily for 3 d ay, then one daily for three days PREDNISONE 26641677304 No Longer Active Tesfaye Sherman MD Active MECLIZINE HCL 25 MG ORAL TABLET one 4 times a day as needed for dizziness MECLIZINE HCL 60743209266 Active Tesfaye Sherman MD Active AMOXICILLIN 500 MG ORAL CAPSULE 1 cap by mouth three times a day AMOXICILLIN 59022953627 No Longer Active Laurence Raida Acti ve DIFLUCAN 100 MG ORAL TABLET 1 tablet by mouth daily 20 19/08/26 FLUCONAZOLE 54805064744 No Longer Active Tesfaye Sherman MD Acti ve BACTRIM DS 800-160 MG ORAL TABLET 1 tab by mouth twice daily 201 05/10/28 TRIMETHOPRIM-SULFAMETHOXAZOLE 31663074670 No Longer Active Fer mastersa Angelica Active FOSAMAX 70 MG ORAL TABLET 1 po qweek. Take 30min prio r to first food/drink. Avoid lying down x 1 hour. ALENDRONATE SODIUM 60173740 144 No Longer Active Laurence Dominguez Active CYMBALTA 60 MG ORAL CAPSULE DELAYED RELEASE PARTICLES Take 1 tablet by mouth daily DULOXETINE HCL 77777132781 No Longer Active Edith Burch MD Active CYMBALTA 30 MG ORAL CAPSULE DELAYED RELEASE PARTICLES 1 cap by mouth daily with 60mg DULOXETINE HCL 24524246746 No Longer Active Jordan Burch MD Active FISH OIL 1000 MG ORAL CAPSULE DELAYED RELEASE 1 pill b y mouth daily for cholesterol OMEGA-3 FATTY ACIDS 99192562677 Active Cee Jaffe LPN Active DIFLUCAN 100 MG ORAL TABLET 1 tablet by mouth daily 20 19/03/05 FLUCONAZOLE 84703562303 No Longer Active Tesfaye Sherman MD Acti ve BACTRIM DS 800-160 MG ORAL TABLET 1 tab by mouth twice daily 201 05/06/28 TRIMETHOPRIM-SULFAMETHOXAZOLE 31271746411 No Longer Active Umer Sherman MD Active BACTRIM DS 800-160 MG ORAL TABLET 1 tab by mouth twice daily 201 05/04/15 TRIMETHOPRIM-SULFAMETHOXAZOLE 21001814099 No Longer Active Umer Sherman MD Active DIFLUCAN 150 MG ORAL TABLET 1 tablet by mouth daily 20 18/09/20 FLUCONAZOLE 94759255683 No Longer Active Tesfaye Sherman MD Acti ve BACTRIM DS 800-160 MG ORAL TABLET 1 tab by mouth twice daily 201 04/13/17 TRIMETHOPRIM-SULFAMETHOXAZOLE 32572508241 No Longer Active Umer Sherman MD Active CEFTIN 250 MG ORAL TABLET 1 tablet twice daily x 7 days CEFUROXIME AXETIL 37149209560 No Longer Active Tesfaye Sherman MD Active DIFLUCAN 100 MG ORAL TABLET 1 tablet by mouth every other da y for 2 doses FLUCONAZOLE 96502679378 No Longer Active Tesfaye barron MD Active DIFLUCAN 100 MG ORAL TABLET 1 tablet by mouth daily X 3 DAYS 201 04/09/01 FLUCONAZOLE 67329300742 No Longer Active Rj Lyons tive MIRTAZAPINE 15 MG ORAL TABLET 1/2 tab by mouth at bedtime. 03/13 MIRTAZAPINE 73034866382 No Longer Active Tesfaye Sherman MD Active BACTRIM DS 800-160 MG ORAL TABLET 1 tab by mouth twice daily 201 04/09/01 TRIMETHOPRIM-SULFAMETHOXAZOLE 32866029253 No Longer Active Umer Sherman MD Active PRAMIPEXOLE DIHYDROCHLORIDE 0.125 MG ORAL TABLET take 1 tablet po qhs for restless leg syndrome. PRAMIPEXOLE DIHYDROCHLORI DE 86857141345 No Longer Active Tesfaye Sherman MD Active MAGNESIUM 400 MG ORAL TABLET 1 tab po daily MAGNE SIUM 03370450444 Active Chelsea Cardenas APRN Active CETIRIZINE HCL 5 MG ORAL TABLET Take 1 tablet by mouth daily CETIRIZINE HCL 49063869987 No Longer Active Chelsea Cardenas APRN Activ e TRIMETHOPRIM 100 MG ORAL TABLET 1/2 qd TRIM ETHOPRIM 19726515332 No Longer Active Chelsea Cardenas APRN Active BACTRIM DS 800-160 MG ORAL TABLET 1 tab by mouth twice daily 201 04/04/11 TRIMETHOPRIM-SULFAMETHOXAZOLE 94728984452 No Longer Active Umer Sherman MD Active BACTRIM DS 800-160 MG ORAL TABLET 1 tab by mouth twice daily X 10 DAYS TRIMETHOPRIM-SULFAMETHOXAZOLE 01779652990 No Longer Active Tesfaye Sherman MD Active AMOXICILLIN 500 MG ORAL CAPSULE 1 cap by mouth three times a day AMOXICILLIN 78297565152 No Longer Active Adriana Arredondo, A A ctive B-12 1000 MCG ORAL LOZENGE 1 tab po daily CYANO COBALAMIN 01742231618 Active Tesfaye Sherman MD Active VITAMIN D3 2000 UNIT ORAL TABLET 1 daily, for vitamin D deficien cy CHOLECALCIFEROL 31581665279 No Longer Active Tesfaye Sherman MD Active TIZANIDINE HCL 2 MG ORAL TABLET take 1-[address] [facility] every day at bedtime at 9pm PRN TIZANIDINE HCL 09041330162 Active Tesfaye hewitt MD Active ZITHROMAX 250 MG ORAL TABLET 2 po today, then 1 po q days 2-5 20 15/02/10 AZITHROMYCIN 12088154209 No Longer Active Tesfaye Sherman MD Active BACTRIM DS 800-160 MG ORAL TABLET 1 tab by mouth twice daily 201 03/03/23 TRIMETHOPRIM-SULFAMETHOXAZOLE 21527976511 No Longer Active Umer Sherman MD Active [facility] NIACIN FLUSH FREE 400-100 MG ORAL CAPSULE 1 daily NIACIN-INOSITOL 59043866169 Active Kayla Cooper MD Activ e DIFLUCAN 150 MG ORAL TABLET 1 qd FLUCONAZOL E 48871714594 No Longer Active Kayla Cooper MD Active FLUTICASONE PROPIONATE 50 MCG/ACT NASAL SUSPENSION 1 spray each nostril twice daily FLUTICASONE PROPIONATE 12634524757 Active Umer Sherman MD Active LOVASTATIN 20 MG ORAL TABLET Take 1 tablet by mouth daily LOVASTATIN 13062142109 No Longer Active Tesfaye Sherman MD Acti ve MELOXICAM 7.5 MG ORAL TABLET 1 tablet by mouth daily 2 MELOXICAM 94318478757 No Longer Active Tesfaye Sherman MD Acti ve GABAPENTIN 300 MG ORAL CAPSULE Take two tablets by mouth every e vening GABAPENTIN 49806891109 No Longer Active Edith Burch MD A ctive BACLOFEN 10 MG ORAL TABLET Take one tablet by mouth three times a d ay BACLOFEN 54368080153 Active Kayla Cooper MD Active GABAPENTIN 300 MG ORAL CAPSULE Take two tablets by mouth every e vening GABAPENTIN 300 MG ORAL CAPSULE 421705 GABAPENTIN I nactive MELOXICAM 7.5 MG ORAL TABLET 1 tablet by mouth daily 2 MELOXICAM 7.5 MG ORAL TABLET 957866 MELOXICAM Inactive LOVASTATIN 20 MG ORAL TABLET Take 1 tablet by mouth daily LOVASTATIN 20 MG ORAL TABLET 494810 LOVASTATIN Inactive DIFLUCAN 150 MG ORAL TABLET 1 qd DIFLUCAN 150 MG ORAL TABLET 219135 FLUCONAZOLE Inactive VITAMIN D3 2000 UNIT ORAL TABLET 1 daily, for vitamin D deficien cy VITAMIN D3 2000 UNIT ORAL TABLET CHOLECALCIFEROL Inactive AMOXICILLIN 500 MG ORAL CAPSULE 1 cap by mouth three times a day AMOXICILLIN 500 MG ORAL CAPSULE 617286 AMOXICILLIN Inactive BACTRIM DS 800-160 MG ORAL TABLET 1 tab by mouth twice daily X 10 DAYS BACTRIM DS 800-160 MG ORAL TABLET 814915 TRIMETHOPRIM-SULFAMETHOXAZOLE Inactive TRIMETHOPRIM 100 MG ORAL TABLET 1/2 qd 7 TRIMETHOPRIM 100 MG ORAL TABLET 514824 TRIMETHOPRIM Inactive CETIRIZINE HCL 5 MG ORAL TABLET Take 1 tablet by mouth daily CETIRIZINE HCL 5 MG ORAL TABLET 9542662 CETIRIZINE HCL Inactive PRAMIPEXOLE DIHYDROCHLORIDE 0.125 MG ORAL TABLET take 1 tablet po qhs for restless leg syndrome. PRAMIPEXOLE DIHYD ROCHLORIDE 0.125 MG ORAL TABLET 200534 PRAMIPEXOLE DIHYDROCHLORIDE Inactive MIRTAZAPINE 15 MG ORAL TABLET 1/2 tab by mouth at bedtime. 03/13 MIRTAZAPINE 15 MG ORAL TABLET 240539 MIRTAZAPINE In active DIFLUCAN 100 MG ORAL TABLET 1 tablet by mouth daily X 3 DAYS 201 04/09/01 DIFLUCAN 100 MG ORAL TABLET 283709 FLUCONAZOLE Inac tive DIFLUCAN 100 MG ORAL [...] 30 MG ORAL CAPSULE DELAYED RELEASE PARTICLES 736743 DULOXETINE HCL Inactive CYMBALTA 60 MG ORAL CAPSULE DELAYED RELEASE PARTICLES Take 1 tablet by mouth daily CYMBALTA 60 MG ORAL CAPSULE DELAYED RELEA SE PARTICLES 611317 DULOXETINE HCL Inactive FOSAMAX 70 MG ORAL TABLET 1 po qweek. Take 30min prio r to first food/drink. Avoid lying down x 1 hour. FOSAMAX 70 MG ORAL TA BLET 829999 ALENDRONATE SODIUM Inactive DIFLUCAN 100 MG ORAL TABLET 1 tablet by mouth daily 20 19/08/26 DIFLUCAN 100 MG ORAL TABLET 821207 FLUCONAZOLE Inactive PREDNISONE 20 MG ORAL TABLET 1 tab twice daily for 3 d ay, then one daily for three days PREDNISONE 20 MG ORAL TABLET 667659 PREDNIS ONE Inactive PROAIR HFA 108 (90 BASE) MCG/ACT INHALATION AEROSOL SO LUTION 1 puff every 6 hours as needed PROAIR HFA 108 (90 B ASE) MCG/ACT INHALATION AEROSOL SOLUTION ALBUTEROL SULFATE Inactive MECLIZINE HCL 25 MG ORAL TABLET one tab po qday prn dizziness 20 17/09/06 MECLIZINE HCL 25 MG ORAL TABLET 065218 MECLIZINE HCL Inactive PREDNISONE 20 MG ORAL TABLET 1 tablet by mouth twice d aily for 3 days, then 1 tablet daily for 3 days PREDNISONE 20 MG ORAL TA BLET 145370 PREDNISONE Inactive DIFLUCAN 100 MG ORAL TABLET 1 tablet by mouth daily 20 20/06/06 DIFLUCAN 100 MG ORAL TABLET 296822 FLUCONAZOLE Inactive REPHRESH PRO-B ORAL CAPSULE 1 tablet daily REPHRESH PRO-B ORAL CAPSULE LACTOBACILLUS Inactive RED YEAST RICE 600 MG ORAL CAPSULE 1 pill by mouth daily RED YEAST RICE 600 MG ORAL CAPSULE 314353 RED YEAST RICE EXTRACT In active SUDAFED [...] 20 19/02/09 DIFLUCAN 100 MG ORAL TABLET 157614 FLUCONAZOLE Inactive DIFLUCAN 100 MG ORAL TABLET 1 tablet by mouth daily 20 19/02/09 DIFLUCAN 100 MG ORAL TABLET 473921 FLUCONAZOLE Inactive VENLAFAXINE HCL 75 MG ORAL TABLET 1 am 1/2 at noon 201 07/07/09 VENLAFAXINE HCL 75 MG ORAL TABLET 738958 VENLAFAXINE HCL Inacti ve GABAPENTIN 300 MG ORAL CAPSULE 1 po daily GABAPENTIN 300 MG ORAL CAPSULE 361456 GABAPENTIN Inactive SUDAFED 12 HOUR 120 MG ORAL TABLET EXTENDED RELEASE 12 HOUR 1 pill twice daily if needed for congestion SUDAFED 12 HOUR 120 MG ORAL TABLET EXTENDED RELEASE 12 HOUR PSEUDOEPHEDRINE HCL Inactive AMITRIPTYLINE HCL 10 MG ORAL TABLET 1 tablet nightly by mout h for neuropathy AMITRIPTYLINE HCL 10 MG ORAL TABLET 229909 AMITRIPTYLINE HCL Inactive AMITRIPTYLINE HCL 50 MG ORAL TABLET 1 po q hs for sleep AMITRIPTYLINE HCL 50 MG ORAL TABLET 764519 AMITRIPTYLINE HCL Inac tive PREDNISONE 20 MG ORAL TABLET 1 tab twice daily for 3 d ay, then one daily for three days PREDNISONE 20 MG ORAL TABLET 311766 PREDNIS ONE Inactive ROPINIROLE HCL 0.25 MG ORAL TABLET 1 TAB PO Q HS 05/31 ROPINIROLE HCL 0.25 MG ORAL TABLET 056091 ROPINIROLE HCL Inact trent ROPINIROLE HCL 0.5 MG ORAL TABLET 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 ROPINIROLE HCL 0.5 MG ORAL TABLET 215181 ROPINIR OLE HCL Inactive BACTRIM DS 800-160 MG ORAL TABLET 1 tab by mouth twice daily 201 03/03/23 BACTRIM DS 800-160 MG ORAL TABLET 19830105 TRIMETHOPRIM-SULFAMETHOXAZOLE Inactive ZITHROMAX 250 MG ORAL TABLET 2 po today, then 1 po q days 2-5 20 15/02/10 ZITHROMAX 250 MG ORAL TABLET 989919 AZITHROMYCIN Mayela ctive BACTRIM DS 800-160 MG [...] a day AMOXICILLIN 500 MG ORAL CAPSULE 987555 AMOXICILLIN Inactive ZITHROMAX 250 MG ORAL TABLET 2 po today, then 1 po q days 2-5 20 20/04/28 ZITHROMAX 250 MG ORAL TABLET 012840 AZITHROMYCIN Sperry ctive DIFLUCAN 100 MG ORAL TABLET 1 [...] -- NO DECISION MADE DURABLE POWER OF DIRECTOR MATERNAL CHILD FOR HEALTHCARE DISCUSED WITH PATIENT -- FULL [...] Magnesium - Chemistry cholesterol, serum 196 mg/dL 408-160 1652/07/30 triglyceride, serum, fasting 86 mg/dL 30-200 HDL cholesterol, serum 41 mg/dL 32-60 LDL cholesterol, serum 138 mg/dL 0-130 sodium, serum 140 mmol/L 669-236 7083/07/30 carbon dioxide, venous blood 28.6 mmol/L 21.0-32 [...] Negative mg/dL Negative sodium, serum 139 mmol/L 113-474 3181/11/07 carbon dioxide, venous blood 28.4 mmol/L 21.0-32 [...] ative Encounters Code Encounter Date Provider Facility CPT-90114 [id number] Vst-Est Level IV 14:08:03 C BRIDGET Sherman MD [facility] CPT-81651 Level 3 Est. Patient 18:06:36 CDT Tesfaye pearson MD [facility] CPT-79614 [id number] Vst-Est Level IV 17:09:34 C BRIDGET Sherman MD [facility] CPT-98646 Level 3 Est. Patient 17:27:08 CDT León hernandez APRN [facility]-59077 [id number] Vst-Est Level IV 14:00:[address] Tesfaye Sherman MD [facility] CPT-21573 [id number] Vst-Est Level IV 19:27:[address] Tesfaye Sherman MD [facility] CPT-33738 [id number] Vst-Est Level IV 10:41:41 C DT Tesfaye Sherman MD [facility] CPT-64741 [id number] Vst-Est Level III 09:40:56 CDT Tesfaye Sherman MD [facility] CPT-16908 Level 4 Est. Patient 22:18:12 CDT Tesfaye pearson MD [facility] CPT-74751 Level 4 Est. Patient 14:44:33 BILINGUAL TRAINER Tesfaye pearson MD [facility] CPT-14247 Level 4 Est. Patient 13:55:29 BILINGUAL TRAINER Tesfaye pearson MD [facility] CPT-24123 Level 4 Est. Patient 17:07:34 BILINGUAL TRAINER Tesfaye pearson MD [facility] CPT-28686 Level 4 Est. Patient 13:56:54 CDT Tesfaye pearson MD [facility] CPT-40786 Level 4 Est. Patient 13:24:25 CDT Chelsea sanz APRN [facility] CPT-35721 Level 4 Est. Patient 09:14:56 CDT Tesfaye pearson MD [facility] CPT-00993 Level 4 Est. Patient 18:40:25 BILINGUAL TRAINER Tesfaye pearson MD [facility] CPT-33020 Level 4 Est. Patient 18:13:07 BILINGUAL TRAINER Tesfaye pearson MD [facility] CPT-37990 Level 3 Est. Patient 10:46:32 CDT Rj cotto DO [facility] CPT-16613 Level 4 Est. Patient 20:19:25 CDT Tesfaye pearson MD [facility] CPT-56656 Level 3 Est. Patient 09:07:31 CDT Tesfaye pearson MD [facility] CPT-74066 Level 4 Est. Patient 13:12:56 CDT Tesfaye pearson MD [facility] CPT-32054 Level 4 Est. Patient 21:24:55 BILINGUAL TRAINER Tesfaye pearson MD [facility] CPT-15370 Level 3 Est. Patient 13:45:04 BILINGUAL TRAINER Tesfaye pearson MD [facility] CPT-83612 Level 4 Est. Patient 13:50:45 CDT Tesfaye pearson MD [facility] CPT-79590 Level 3 Est. Patient 10:16:10 CDT Tesfaye pearson MD [facility] CPT-85466 Level 3 Est. Patient 16:36:07 BILINGUAL TRAINER Kayla jameson MD [facility] CPT-66635 Level 4 Est. Patient 16:00:14 BILINGUAL TRAINER Tesafye pearson MD [facility] CPT-00195 Level 4 Est. Patient 11:02:24 BILINGUAL TRAINER Tesfaye pearson MD [facility] CPT-50566 Level 3 Est. Patient 20:21:43 BILINGUAL TRAINER Kayla jameson MD [facility]-33114 Level 3 Est. Patient 13:27:28 BILINGUAL TRAINER Kayla jameson MD [facility]-34397 Level 4 Est. Patient 15:57:17 BILINGUAL TRAINER Tesfaye pearson MD [facility] CPT-55381 Level 3 New Patient 13:25:47 CDT Tesfaye kidd MD [facility] CPT-15815 Level 3 New Patient 17:22:21 CDT Kayla angel MD [facility] Procedures Code Procedure Name Date Entry Date Standard Desc ription CPT-78954 Venipuncture Draw Fee 16:12:22 CDT CPT-G0439 Subsequent Annual Wellness Exam 18:06:36 CDT CPT-G0439 Subsequent Annual Wellness Exam 22:18:11 CDT CPT-58782 Bone Density - XRAY USE ONLY 11:43:58 CDT 2 CPT-88512 Bone Density - XRAY USE ONLY 10:05:16 CDT 2 CPT-02674 Prv Med New Pt 40-64 yrs 18:19:25 CDT 2016 CPT-87607 Foot, right, comp min 3V - XRAY USE ONLY 10:38:34 CDT CPT-G0439 Subsequent Annual Wellness Exam 13:55:04 CDT CPT-G0438 Initial Annual Wellness Exam 11:23:17 CD T CPT-J2930 Solu Medrol 125 mg (Methyl Prednisolone Sodium Succinate) 17:29:12 BILINGUAL TRAINER CPT-90970 Abx/Therapy Injection 17:29:11 BILINGUAL TRAINER CPT-J2930 Solu Medrol 125 mg (Methyl Prednisolone Sodium Succinate) 12:34:38 BILINGUAL TRAINER CPT-J3420 Vitamin B12 1000mcg (Cyanocobalamin) 09:12:55 CDT CPT-J3420 Vitamin B12 1000mcg (Cyanocobalamin) 16:28:06 BILINGUAL TRAINER CPT-02594 Venipuncture Draw Fee 08:39:53 CDT CPT-J3420 Vitamin B12 1000mcg (Cyanocobalamin) 08:46:22 CDT CPT-83085 Abx/Therapy Injection 08:46:22 CDT CPT-J3420 Vitamin B12 1000mcg (Cyanocobalamin) 08:41:26 CDT CPT-86083 Abx/Therapy Injection 08:41:26 CDT CPT-J3420 Vitamin B12 1000mcg (Cyanocobalamin) 08:57:15 CDT CPT-24074 Abx/Therapy Injection 08:57:15 CDT CPT-J3420 Vitamin B12 1000mcg (Cyanocobalamin) 10:59:03 CDT CPT-21689 Abx/Therapy Injection 10:59:03 CDT CPT-J3420 Vitamin B12 1000mcg (Cyanocobalamin) 15:05:39 CDT CPT-80630 Abx/Therapy Injection 15:05:39 CDT CPT-J3420 Vitamin B12 1000mcg (Cyanocobalamin) 13:50:45 CDT CPT-J3420 Vitamin B12 1000mcg (Cyanocobalamin) 08:48:55 CDT CPT-09235 Abx/Therapy Injection 08:48:55 CDT CPT-J3420 Vitamin B12 1000mcg (Cyanocobalamin) 09:14:54 CDT CPT-96093 Abx/Therapy Injection 09:14:54 CDT CPT-J3420 Vitamin B12 1000mcg (Cyanocobalamin) 09:06:06 CDT CPT-33088 Abx/Therapy Injection 09:06:06 CDT CPT-J3420 Vitamin B12 1000mcg (Cyanocobalamin) 09:49:14 CDT CPT-16705 Abx/Therapy Injection 09:49:14 CDT CPT-J3420 Vitamin B12 1000mcg (Cyanocobalamin) 09:10:30 BILINGUAL TRAINER CPT-67149 Abx/Therapy Injection 09:10:30 BILINGUAL TRAINER CPT-J3420 Vitamin B12 1000mcg (Cyanocobalamin) 09:11:07 BILINGUAL TRAINER CPT-05624 Abx/Therapy Injection 09:11:07 BILINGUAL TRAINER CPT-J3420 Vitamin B12 1000mcg (Cyanocobalamin) 09:57:03 BILINGUAL TRAINER CPT-70330 Abx/Therapy Injection 09:57:03 BILINGUAL TRAINER CPT-J3420 Vitamin B12 1000mcg (Cyanocobalamin) 09:23:21 BILINGUAL TRAINER CPT-84722 Abx/Therapy Injection 09:23:21 BILINGUAL TRAINER CPT-01699 Urine Dip (Floor Use Only) 20:21:44 BILINGUAL TRAINER 201 02/12/11 CPT-13288 UA Dip Auto (Floor Use Only) 10:04:39 BILINGUAL TRAINER 2 CPT-19457 Urine Dip (Floor Use Only) 13:27:28 BILINGUAL TRAINER 201 02/12/01 CPT-27309 Bladder Scan 13:27:28 BILINGUAL TRAINER CPT-01163 Abd single AP View 14:30:51 BILINGUAL TRAINER CPT-OV Office Visit 10:15:43 CDT CPT-29285 Urine Dip (Floor Use Only) 17:22:21 CDT 201 02/09/02 CPT-04264 Bladder Scan 17:22:21 CDT
[2020-05-05 11:20] LABS: ALBUMIN 4.5 GM/DL (3.2-4.5); CHLORIDE 107 MMOL/L (98-107); POTASSIUM 4.2 MMOL/L (3.6-5.0); SODIUM 139 MMOL/L (135-145)
--- OUTSIDE RECORDS SUMMARY | 2020-05-05 11:20 | XMS REPORT | Clinical Summary ---
Author Author Talon, Jeri Wood Organization [facility] Address Unknown Phone Unavailable Allergies, Adverse Reactions, [...] MD [facility] Sinusitis 461.9 Resolved [...] MD Routine general medical examination at a [facility] acility Body Mass Index 21.0-21.9 [...] bilateral 782.3 Active 201 07/07/09 León Kodi EXTERNAL RELATIONS DIRECTOR Edema Peripheral neuropathy 356.9 Active Tesfaye lamb [...] for rest less leg syndrome. ROPINIROLE HCL 34908484056 No Longer Active MARCUS Panchal Active ROPINIROLE HCL 1 MG ORAL TABLET 1 tab po q hs R OPINIROLE HCL 65515637681 Active MARCUS Maravilla Active ROPINIROLE HCL 0.25 MG ORAL TABLET 1 TAB PO Q HS 05/31 ROPINIROLE HCL 54524307440 No Longer Active Tesfaye Sherman MD Ac tive PREDNISONE 20 MG ORAL TABLET 1 tab twice daily for 3 d ay, then one daily for three days PREDNISONE 45645214654 No Longer Active Tesfaye Sherman MD Active AMITRIPTYLINE HCL 50 MG ORAL TABLET 1 po q hs for sleep AMITRIPTYLINE HCL 76052745926 No Longer Active Tesfaye Sherman MD Active AMITRIPTYLINE HCL 10 MG ORAL TABLET 1 tablet nightly by mout h for neuropathy AMITRIPTYLINE HCL 04994118968 No Longer Active MARCUS Stapleton Active DIFLUCAN 100 MG ORAL TABLET 1 tablet by mouth daily 20 21/03/11 FLUCONAZOLE 98256742953 No Longer Active Tesfaye Sherman MD Acti ve BACTRIM DS 800-160 MG ORAL TABLET 1 tab by mouth twice daily 201 07/08/06 TRIMETHOPRIM-SULFAMETHOXAZOLE 23954123324 No Longer Active Umer Sherman MD Active CLARITIN 10 MG ORAL TABLET Take one by mouth daily LORATADINE 19967887458 Active Tesfaye Sherman MD Active SUDAFED 12 HOUR 120 MG ORAL TABLET EXTENDED RELEASE 12 HOUR 1 pill twice daily if needed for congestion PSEUDOEPHEDRINE HCL 827110251 13 No Longer Active Tesfaye Sherman MD Active FENOFIBRATE 145 MG ORAL TABLET 1 by mouth daily FENOFIBRATE 34122097413 Active Laurence Dominguez Active GABAPENTIN 300 MG ORAL CAPSULE 1 po daily GABAP ENTIN 18915739435 No Longer Active Tesfaye Sherman MD Active HYDROCHLOROTHIAZIDE 12.5 MG ORAL CAPSULE 1 pill by mough daily 2 HYDROCHLOROTHIAZIDE 42481573479 No Longer Active León Kodi EXTERNAL RELATIONS DIRECTOR Active VENLAFAXINE HCL 75 MG ORAL TABLET 1 am 1/ at noon 201 07/07/09 VENLAFAXINE HCL 65638280495 No Longer Active León Kodi EXTERNAL RELATIONS DIRECTOR Act trent DIFLUCAN 100 MG ORAL TABLET 1 tablet by mouth daily 20 19/02/09 FLUCONAZOLE 86475034459 No Longer Active León Kodi EXTERNAL RELATIONS DIRECTOR Active DIFLUCAN 100 MG ORAL TABLET 1 tablet by mouth daily 20 19/02/09 FLUCONAZOLE 83896781666 No Longer Active León Kodi EXTERNAL RELATIONS DIRECTOR Active OXYCODONE-ACETAMINOPHEN 5-325 MG ORAL TABLET Take one tablet by mouth every 6 hours 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 Use sparingly OXYCODONE-ACETAMINOPHEN 11641578568 Active Tesfaye villar MD Active CLONAZEPAM 0.5 MG ORAL TABLET Take 1/2 qam, and 1/2 qpm CLONAZEPAM 04673359652 Active Tesfaye Sherman MD Active PRELIEF 340 (65-50) MG (CA-P) ORAL TABLET CALCIUM GLYCEROPHOSPHATE 96516605284 No Longer Active Tesfaye Sherman MD Active SUDAFED 24 HOUR 240 MG ORAL TABLET EXTENDED RELEASE 24 HOUR 1 tab po daily PSEUDOEPHEDRINE HCL 92415849326 No Longer Active Raul Sherman MD Active RED YEAST RICE 600 MG ORAL CAPSULE 1 pill by mouth daily RED YEAST RICE EXTRACT 89430569502 No Longer Active Tesfaye Sherman MD Active REPHRESH PRO-B ORAL CAPSULE 1 tablet daily LACT OBACILLUS 94525611132 No Longer Active Tesfaye Sherman MD Active ABILIFY 2 MG ORAL TABLET 1 by mouth daily. MARIA ELENA PIPRAZOLE 33279319445 Active Tesfaye Sherman MD Active CYMBALTA 60 MG ORAL CAPSULE DELAYED RELEASE PARTICLES 1 cap by mouth daily for pain DULOXETINE HCL 98370256400 Active MARCUS Lindsay Active DIFLUCAN 100 MG ORAL TABLET 1 tablet by mouth daily 20 20/06/06 FLUCONAZOLE 75644032636 No Longer Active Tesfaye Sherman MD Acti ve PREDNISONE 20 MG ORAL TABLET 1 tablet by mouth twice d aily for 3 days, then 1 tablet daily for 3 days PREDNISONE 93434202455 No L onger Active Tesfaye Sherman MD Active BACTRIM DS 800-160 MG ORAL TABLET 1 tab by mouth twice daily 201 06/09/02 TRIMETHOPRIM-SULFAMETHOXAZOLE 67853674292 No Longer Active Fer Dominguez Active DIFLUCAN 100 MG ORAL TABLET 1 tablet by mouth daily 20 20/05/01 FLUCONAZOLE 51941271254 No Longer Active Tesfaye Sherman MD Acti ve ZITHROMAX 250 MG ORAL TABLET 2 po today, then 1 po q days 2-5 20 20/04/28 AZITHROMYCIN 08068900894 No Longer Active Tesfaye Sherman MD Active MECLIZINE HCL 25 MG ORAL TABLET one tab po qday prn dizziness 20 17/09/06 MECLIZINE HCL 41763446182 No Longer Active Tesfaye Sherman MD Active PROAIR HFA 108 (90 BASE) MCG/ACT INHALATION AEROSOL SO LUTION 1 puff every 6 hours as needed ALBUTEROL SULFATE 84526266703 No Long er Active Tesfaye Sherman MD Active PREDNISONE 20 MG ORAL TABLET 1 tab twice daily for 3 d ay, then one daily for three days PREDNISONE 34245999360 No Longer Active Tesfaye Sherman MD Active MECLIZINE HCL 25 MG ORAL TABLET one 4 times a day as needed for dizziness MECLIZINE HCL 01655658962 Active Tesfaye Sherman MD Active AMOXICILLIN 500 MG ORAL CAPSULE 1 cap by mouth three times a day AMOXICILLIN 61125707071 No Longer Active Laurenec Raida Acti ve DIFLUCAN 100 MG ORAL TABLET 1 tablet by mouth daily 20 19/08/26 FLUCONAZOLE 15683997831 No Longer Active Tesfaye Sherman MD Acti ve BACTRIM DS 800-160 MG ORAL TABLET 1 tab by mouth twice daily 201 05/10/28 TRIMETHOPRIM-SULFAMETHOXAZOLE 49099914513 No Longer Active Fer mastersa Angelica Active FOSAMAX 70 MG ORAL TABLET 1 po qweek. Take 30min prio r to first food/drink. Avoid lying down x 1 hour. ALENDRONATE SODIUM 01845862 144 No Longer Active Laurence Dominguez Active CYMBALTA 60 MG ORAL CAPSULE DELAYED RELEASE PARTICLES Take 1 tablet by mouth daily DULOXETINE HCL 29395126884 No Longer Active Edith Burch MD Active CYMBALTA 30 MG ORAL CAPSULE DELAYED RELEASE PARTICLES 1 cap by mouth daily with 60mg DULOXETINE HCL 25657271013 No Longer Active Jordan Burch MD Active FISH OIL 1000 MG ORAL CAPSULE DELAYED RELEASE 1 pill b y mouth daily for cholesterol OMEGA-3 FATTY ACIDS 98481065297 Active Cee Jaffe LPN Active DIFLUCAN 100 MG ORAL TABLET 1 tablet by mouth daily 20 19/03/05 FLUCONAZOLE 17141584952 No Longer Active Tesfaye Sherman MD Acti ve BACTRIM DS 800-160 MG ORAL TABLET 1 tab by mouth twice daily 201 05/06/28 TRIMETHOPRIM-SULFAMETHOXAZOLE 43251675120 No Longer Active Umer Sherman MD Active BACTRIM DS 800-160 MG ORAL TABLET 1 tab by mouth twice daily 201 05/04/15 TRIMETHOPRIM-SULFAMETHOXAZOLE 54200632125 No Longer Active Umer Sherman MD Active DIFLUCAN 150 MG ORAL TABLET 1 tablet by mouth daily 20 18/09/20 FLUCONAZOLE 49994191759 No Longer Active Tesfaye Sherman MD Acti ve BACTRIM DS 800-160 MG ORAL TABLET 1 tab by mouth twice daily 201 04/13/17 TRIMETHOPRIM-SULFAMETHOXAZOLE 37226268358 No Longer Active Umer Sherman MD Active CEFTIN 250 MG ORAL TABLET 1 tablet twice daily x 7 days CEFUROXIME AXETIL 40876837570 No Longer Active Tesfaye Sherman MD Active DIFLUCAN 100 MG ORAL TABLET 1 tablet by mouth every other da y for 2 doses FLUCONAZOLE 31809161598 No Longer Active Tesfaye barron MD Active DIFLUCAN 100 MG ORAL TABLET 1 tablet by mouth daily X 3 DAYS 201 04/09/01 FLUCONAZOLE 72120177363 No Longer Active Rj Lyons tive MIRTAZAPINE 15 MG ORAL TABLET 1/2 tab by mouth at bedtime. 03/13 MIRTAZAPINE 75401351943 No Longer Active Tesfaye Sherman MD Active BACTRIM DS 800-160 MG ORAL TABLET 1 tab by mouth twice daily 201 04/09/01 TRIMETHOPRIM-SULFAMETHOXAZOLE 16928477412 No Longer Active Umer Sherman MD Active PRAMIPEXOLE DIHYDROCHLORIDE 0.125 MG ORAL TABLET take 1 tablet po qhs for restless leg syndrome. PRAMIPEXOLE DIHYDROCHLORI DE 97974637957 No Longer Active Tesafye Sherman MD Active MAGNESIUM 400 MG ORAL TABLET 1 tab po daily MAGNE SIUM 22218566694 Active Chelsea Cardenas APRN Active CETIRIZINE HCL 5 MG ORAL TABLET Take 1 tablet by mouth daily CETIRIZINE HCL 55326137948 No Longer Active Chelsea Cardenas APRN Activ e TRIMETHOPRIM 100 MG ORAL TABLET 1/2 qd TRIM ETHOPRIM 25365737313 No Longer Active Chelsea Cardenas APRN Active BACTRIM DS 800-160 MG ORAL TABLET 1 tab by mouth twice daily 201 04/04/11 TRIMETHOPRIM-SULFAMETHOXAZOLE 15545417518 No Longer Active Umer Sherman MD Active BACTRIM DS 800-160 MG ORAL TABLET 1 tab by mouth twice daily X 10 DAYS TRIMETHOPRIM-SULFAMETHOXAZOLE 53565990842 No Longer Active Tesfaye Sherman MD Active AMOXICILLIN 500 MG ORAL CAPSULE 1 cap by mouth three times a day AMOXICILLIN 75029323870 No Longer Active Adriana Arredondo, A A ctive B-12 1000 MCG ORAL LOZENGE 1 tab po daily CYANO COBALAMIN 70605752783 Active Tesfaye Sherman MD Active VITAMIN D3 2000 UNIT ORAL TABLET 1 daily, for vitamin D deficien cy CHOLECALCIFEROL 20867549342 No Longer Active Tesfaye Sherman MD Active TIZANIDINE HCL 2 MG ORAL TABLET take 1-2 tablet by [facility] every day at bedtime at 9pm PRN TIZANIDINE HCL 60977234436 Active Tesfaye hewitt MD Active ZITHROMAX 250 MG ORAL TABLET 2 po today, then 1 po q days 2-5 20 15/02/10 AZITHROMYCIN 04404670901 No Longer Active Tesfaye Sherman MD Active BACTRIM DS 800-160 MG ORAL TABLET 1 tab by mouth twice daily 201 03/03/23 TRIMETHOPRIM-SULFAMETHOXAZOLE 47114988729 No Longer Active Umer Sherman MD Active [facility] NIACIN FLUSH FREE 400-100 MG ORAL CAPSULE 1 daily NIACIN-INOSITOL 04947344660 Active Kayla Cooper MD Activ e DIFLUCAN 150 MG ORAL TABLET 1 qd FLUCONAZOL E 19657625820 No Longer Active Kayla Cooper MD Active FLUTICASONE PROPIONATE 50 MCG/ACT NASAL SUSPENSION 1 spray each nostril twice daily FLUTICASONE PROPIONATE 61080755004 Active Umer Sherman MD Active LOVASTATIN 20 MG ORAL TABLET Take 1 tablet by mouth daily LOVASTATIN 77917868385 No Longer Active Tesfaye Sherman MD Acti ve MELOXICAM 7.5 MG ORAL TABLET 1 tablet by mouth daily 2 MELOXICAM 60874051318 No Longer Active Tesfaye Sherman MD Acti ve GABAPENTIN 300 MG ORAL CAPSULE Take two tablets by mouth every e vening GABAPENTIN 18716616143 No Longer Active Edith Burch MD A ctive BACLOFEN 10 MG ORAL TABLET Take one tablet by mouth three times a d ay BACLOFEN 66426941513 Active Kayla Cooper MD Active GABAPENTIN 300 MG ORAL CAPSULE Take two tablets by mouth every e vening GABAPENTIN 300 MG ORAL CAPSULE 990707 GABAPENTIN I nactive MELOXICAM 7.5 MG ORAL TABLET 1 tablet by mouth daily 2 MELOXICAM 7.5 MG ORAL TABLET 007337 MELOXICAM Inactive LOVASTATIN 20 MG ORAL TABLET Take 1 tablet by mouth daily LOVASTATIN 20 MG ORAL TABLET 114168 LOVASTATIN Inactive DIFLUCAN 150 MG ORAL TABLET 1 qd DIFLUCAN 150 MG ORAL TABLET 128014 FLUCONAZOLE Inactive VITAMIN D3 2000 UNIT ORAL TABLET 1 daily, for vitamin D deficien cy VITAMIN D3 2000 UNIT ORAL TABLET CHOLECALCIFEROL Inactive AMOXICILLIN 500 MG ORAL CAPSULE 1 cap by mouth three times a day AMOXICILLIN 500 MG ORAL CAPSULE 461846 AMOXICILLIN Inactive BACTRIM DS 800-160 MG ORAL TABLET 1 tab by mouth twice daily X 10 DAYS BACTRIM DS 800-160 MG ORAL TABLET 808903 TRIMETHOPRIM-SULFAMETHOXAZOLE Inactive TRIMETHOPRIM 100 MG ORAL TABLET 1/2 qd 7 TRIMETHOPRIM 100 MG ORAL TABLET 729463 TRIMETHOPRIM Inactive CETIRIZINE HCL 5 MG ORAL TABLET Take 1 tablet by mouth daily CETIRIZINE HCL 5 MG ORAL TABLET 0393616 CETIRIZINE HCL Inactive PRAMIPEXOLE DIHYDROCHLORIDE 0.125 MG ORAL TABLET take 1 tablet po qhs for restless leg syndrome. PRAMIPEXOLE DIHYD ROCHLORIDE 0.125 MG ORAL TABLET 407183 PRAMIPEXOLE DIHYDROCHLORIDE Inactive MIRTAZAPINE 15 MG ORAL TABLET 1/2 tab by mouth at bedtime. 03/13 MIRTAZAPINE 15 MG ORAL TABLET 986437 MIRTAZAPINE In active DIFLUCAN 100 MG ORAL TABLET 1 tablet by mouth daily X 3 DAYS 201 04/09/01 DIFLUCAN 100 MG ORAL TABLET 067685 FLUCONAZOLE Inac tive DIFLUCAN 100 MG ORAL [...] 30 MG ORAL CAPSULE DELAYED RELEASE PARTICLES 056625 DULOXETINE HCL Inactive CYMBALTA 60 MG ORAL CAPSULE DELAYED RELEASE PARTICLES Take 1 tablet by mouth daily CYMBALTA 60 MG ORAL CAPSULE DELAYED RELEA SE PARTICLES 638508 DULOXETINE HCL Inactive FOSAMAX 70 MG ORAL TABLET 1 po qweek. Take 30min prio r to first food/drink. Avoid lying down x 1 hour. FOSAMAX 70 MG ORAL TA BLET 025843 ALENDRONATE SODIUM Inactive DIFLUCAN 100 MG ORAL TABLET 1 tablet by mouth daily 20 19/08/26 DIFLUCAN 100 MG ORAL TABLET 794674 FLUCONAZOLE Inactive PREDNISONE 20 MG ORAL TABLET 1 tab twice daily for 3 d ay, then one daily for three days PREDNISONE 20 MG ORAL TABLET 151271 PREDNIS ONE Inactive PROAIR HFA 108 (90 BASE) MCG/ACT INHALATION AEROSOL SO LUTION 1 puff every 6 hours as needed PROAIR HFA 108 (90 B ASE) MCG/ACT INHALATION AEROSOL SOLUTION ALBUTEROL SULFATE Inactive MECLIZINE HCL 25 MG ORAL TABLET one tab po qday prn dizziness 20 17/09/06 MECLIZINE HCL 25 MG ORAL TABLET 137800 MECLIZINE HCL Inactive PREDNISONE 20 MG ORAL TABLET 1 tablet by mouth twice d aily for 3 days, then 1 tablet daily for 3 days PREDNISONE 20 MG ORAL TA BLET 132961 PREDNISONE Inactive DIFLUCAN 100 MG ORAL TABLET 1 tablet by mouth daily 20 20/06/06 DIFLUCAN 100 MG ORAL TABLET 470894 FLUCONAZOLE Inactive REPHRESH PRO-B ORAL CAPSULE 1 tablet daily REPHRESH PRO-B ORAL CAPSULE LACTOBACILLUS Inactive RED YEAST RICE 600 MG ORAL CAPSULE 1 pill by mouth daily RED YEAST RICE 600 MG ORAL CAPSULE 046362 RED YEAST RICE EXTRACT In active SUDAFED [...] 20 19/02/09 DIFLUCAN 100 MG ORAL TABLET 049957 FLUCONAZOLE Inactive DIFLUCAN 100 MG ORAL TABLET 1 tablet by mouth daily 20 19/02/09 DIFLUCAN 100 MG ORAL TABLET 793324 FLUCONAZOLE Inactive VENLAFAXINE HCL 75 MG ORAL TABLET 1 am 1/2 at noon 201 07/07/09 VENLAFAXINE HCL 75 MG ORAL TABLET 339690 VENLAFAXINE HCL Inacti ve GABAPENTIN 300 MG ORAL CAPSULE 1 po daily GABAPENTIN 300 MG ORAL CAPSULE 004589 GABAPENTIN Inactive SUDAFED 12 HOUR 120 MG ORAL TABLET EXTENDED RELEASE 12 HOUR 1 pill twice daily if needed for congestion SUDAFED 12 HOUR 120 MG ORAL TABLET EXTENDED RELEASE 12 HOUR PSEUDOEPHEDRINE HCL Inactive AMITRIPTYLINE HCL 10 MG ORAL TABLET 1 tablet nightly by mout h for neuropathy AMITRIPTYLINE HCL 10 MG ORAL TABLET 647803 AMITRIPTYLINE HCL Inactive AMITRIPTYLINE HCL 50 MG ORAL TABLET 1 po q hs for sleep AMITRIPTYLINE HCL 50 MG ORAL TABLET 902944 AMITRIPTYLINE HCL Inac tive PREDNISONE 20 MG ORAL TABLET 1 tab twice daily for 3 d ay, then one daily for three days PREDNISONE 20 MG ORAL TABLET 454941 PREDNIS ONE Inactive ROPINIROLE HCL 0.25 MG ORAL TABLET 1 TAB PO Q HS 05/31 ROPINIROLE HCL 0.25 MG ORAL TABLET 489170 ROPINIROLE HCL Inact trent ROPINIROLE HCL 0.5 MG ORAL TABLET 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 ROPINIROLE HCL 0.5 MG ORAL TABLET 254413 ROPINIR OLE HCL Inactive BACTRIM DS 800-160 MG ORAL TABLET 1 tab by mouth twice daily 201 03/03/23 BACTRIM DS 800-160 MG ORAL TABLET 19830105 TRIMETHOPRIM-SULFAMETHOXAZOLE Inactive ZITHROMAX 250 MG ORAL TABLET 2 po today, then 1 po q days 2-5 20 15/02/10 ZITHROMAX 250 MG ORAL TABLET 413604 AZITHROMYCIN Mayela ctive BACTRIM DS 800-160 MG [...] a day AMOXICILLIN 500 MG ORAL CAPSULE 389479 AMOXICILLIN Inactive ZITHROMAX 250 MG ORAL TABLET 2 po today, then 1 po q days 2-5 20 20/04/28 ZITHROMAX 250 MG ORAL TABLET 494088 AZITHROMYCIN Fallon ctive DIFLUCAN 100 MG ORAL TABLET 1 [...] -- 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 PATIENT -- FULL [...] Magnesium - Chemistry cholesterol, serum 196 mg/dL 420-985 1063/07/30 triglyceride, serum, fasting 86 mg/dL 30-200 HDL cholesterol, serum 41 mg/dL 32-60 LDL cholesterol, serum 138 mg/dL 0-130 sodium, serum 140 mmol/L 874-285 0213/07/30 carbon dioxide, venous blood 28.6 mmol/L 21.0-32 [...] Negative mg/dL Negative sodium, serum 139 mmol/L 701-283 2078/11/07 carbon dioxide, venous blood 28.4 mmol/L 21.0-32 [...] ative Encounters Code Encounter Date Provider Facility CPT-44470 [id number] Vst-Est Level IV 14:08:03 C BRIDGET Sherman MD [facility] CPT-43568 Level 3 Est. Patient 18:06:36 CDT Tesfaye pearson MD [facility] CPT-52669 [id number] Vst-Est Level IV 17:09:34 C BRIDGET Sherman MD [facility] CPT-63517 Level 3 Est. Patient 17:27:08 CDT León hernandez APRN [facility]-84862 [id number] Vst-Est Level IV 14:00:[address] Tesfaye Sherman MD [facility] CPT-25036 [id number] Vst-Est Level IV 19:27:[address] Tesfaye Sherman MD [facility] CPT-07850 [id number] Vst-Est Level IV 10:41:41 C DT Tesfaye Sherman MD [facility] CPT-04094 [id number] Vst-Est Level III 09:40:56 CDT Tesfaye Sherman MD [facility] CPT-58208 Level 4 Est. Patient 22:18:12 CDT Tesfaye pearson MD [facility] CPT-58261 Level 4 Est. Patient 14:44:33 ELECTRICAL SYSTEMS DESIGNER Tesfaye pearson MD [facility] CPT-00711 Level 4 Est. Patient 13:55:29 ELECTRICAL SYSTEMS DESIGNER Tesfaye pearson MD [facility] CPT-49264 Level 4 Est. Patient 17:07:34 ELECTRICAL SYSTEMS DESIGNER Tesfaye pearson MD [facility] CPT-40745 Level 4 Est. Patient 13:56:54 CDT Tesfaye pearson MD [facility] CPT-03967 Level 4 Est. Patient 13:24:25 CDT Chelsea sanz APRN [facility] CPT-85144 Level 4 Est. Patient 09:14:56 CDT Tesfaye pearson MD [facility] CPT-95735 Level 4 Est. Patient 18:40:25 ELECTRICAL SYSTEMS DESIGNER Tesfaye pearson MD [facility] CPT-06543 Level 4 Est. Patient 18:13:07 ELECTRICAL SYSTEMS DESIGNER Tesfaye pearson MD [facility] CPT-63976 Level 3 Est. Patient 10:46:32 CDT Rj cotto DO [facility] CPT-73389 Level 4 Est. Patient 20:19:25 CDT Tesfaye pearson MD [facility] CPT-46510 Level 3 Est. Patient 09:07:31 CDT Tesfaye pearson MD [facility] CPT-75423 Level 4 Est. Patient 13:12:56 CDT Tesfaye pearson MD [facility] CPT-33689 Level 4 Est. Patient 21:24:55 ELECTRICAL SYSTEMS DESIGNER Tesfaye pearson MD [facility] CPT-68553 Level 3 Est. Patient 13:45:04 ELECTRICAL SYSTEMS DESIGNER Tesfaye pearson MD [facility] CPT-25226 Level 4 Est. Patient 13:50:45 CDT Tesfaye pearson MD [facility] CPT-73063 Level 3 Est. Patient 10:16:10 CDT Tesfaye pearson MD [facility] CPT-98449 Level 3 Est. Patient 16:36:07 ELECTRICAL SYSTEMS DESIGNER Kayla jameson MD [facility] CPT-46743 Level 4 Est. Patient 16:00:14 ELECTRICAL SYSTEMS DESIGNER Tesfaye pearson MD [facility] CPT-34247 Level 4 Est. Patient 11:02:24 ELECTRICAL SYSTEMS DESIGNER Tesfaye pearson MD [facility] CPT-87029 Level 3 Est. Patient 20:21:43 ELECTRICAL SYSTEMS DESIGNER Kayla jameson MD [facility]-88093 Level 3 Est. Patient 13:27:28 ELECTRICAL SYSTEMS DESIGNER Kayla jameson MD [facility]-67762 Level 4 Est. Patient 15:57:17 ELECTRICAL SYSTEMS DESIGNER Tesfaye pearson MD [facility] CPT-64900 Level 3 New Patient 13:25:47 CDT Tesfaye kidd MD [facility] CPT-68539 Level 3 New Patient 17:22:21 CDT Kayla angel MD [facility] Procedures Code Procedure Name Date Entry Date Standard Desc ription CPT-42437 Venipuncture Draw Fee 16:12:22 CDT CPT-G0439 Subsequent Annual Wellness Exam 18:06:36 CDT CPT-G0439 Subsequent Annual Wellness Exam 22:18:11 CDT CPT-33594 Bone Density - XRAY USE ONLY 11:43:58 CDT 2 CPT-31609 Bone Density - XRAY USE ONLY 10:05:16 CDT 2 CPT-04250 Prv Med New Pt 40-64 yrs 18:19:25 CDT 2016 CPT-82522 Foot, right, comp min 3V - XRAY USE ONLY 10:38:34 CDT CPT-G0439 Subsequent Annual Wellness Exam 13:55:04 CDT CPT-G0438 Initial Annual Wellness Exam 11:23:17 CD T CPT-J2930 Solu Medrol 125 mg (Methyl Prednisolone Sodium Succinate) 17:29:12 ELECTRICAL SYSTEMS DESIGNER CPT-51479 Abx/Therapy Injection 17:29:11 ELECTRICAL SYSTEMS DESIGNER CPT-J2930 Solu Medrol 125 mg (Methyl Prednisolone Sodium Succinate) 12:34:38 ELECTRICAL SYSTEMS DESIGNER CPT-J3420 Vitamin B12 1000mcg (Cyanocobalamin) 09:12:55 CDT CPT-J3420 Vitamin B12 1000mcg (Cyanocobalamin) 16:28:06 ELECTRICAL SYSTEMS DESIGNER CPT-09250 Venipuncture Draw Fee 08:39:53 CDT CPT-J3420 Vitamin B12 1000mcg (Cyanocobalamin) 08:46:22 CDT CPT-25078 Abx/Therapy Injection 08:46:22 CDT CPT-J3420 Vitamin B12 1000mcg (Cyanocobalamin) 08:41:26 CDT CPT-75557 Abx/Therapy Injection 08:41:26 CDT CPT-J3420 Vitamin B12 1000mcg (Cyanocobalamin) 08:57:15 CDT CPT-91126 Abx/Therapy Injection 08:57:15 CDT CPT-J3420 Vitamin B12 1000mcg (Cyanocobalamin) 10:59:03 CDT CPT-60991 Abx/Therapy Injection 10:59:03 CDT CPT-J3420 Vitamin B12 1000mcg (Cyanocobalamin) 15:05:39 CDT CPT-12429 Abx/Therapy Injection 15:05:39 CDT CPT-J3420 Vitamin B12 1000mcg (Cyanocobalamin) 13:50:45 CDT CPT-J3420 Vitamin B12 1000mcg (Cyanocobalamin) 08:48:55 CDT CPT-97402 Abx/Therapy Injection 08:48:55 CDT CPT-J3420 Vitamin B12 1000mcg (Cyanocobalamin) 09:14:54 CDT CPT-44910 Abx/Therapy Injection 09:14:54 CDT CPT-J3420 Vitamin B12 1000mcg (Cyanocobalamin) 09:06:06 CDT CPT-61890 Abx/Therapy Injection 09:06:06 CDT CPT-J3420 Vitamin B12 1000mcg (Cyanocobalamin) 09:49:14 CDT CPT-28298 Abx/Therapy Injection 09:49:14 CDT CPT-J3420 Vitamin B12 1000mcg (Cyanocobalamin) 09:10:30 ELECTRICAL SYSTEMS DESIGNER CPT-31546 Abx/Therapy Injection 09:10:30 ELECTRICAL SYSTEMS DESIGNER CPT-J3420 Vitamin B12 1000mcg (Cyanocobalamin) 09:11:07 ELECTRICAL SYSTEMS DESIGNER CPT-39358 Abx/Therapy Injection 09:11:07 ELECTRICAL SYSTEMS DESIGNER CPT-J3420 Vitamin B12 1000mcg (Cyanocobalamin) 09:57:03 ELECTRICAL SYSTEMS DESIGNER CPT-48521 Abx/Therapy Injection 09:57:03 ELECTRICAL SYSTEMS DESIGNER CPT-J3420 Vitamin B12 1000mcg (Cyanocobalamin) 09:23:21 ELECTRICAL SYSTEMS DESIGNER CPT-42568 Abx/Therapy Injection 09:23:21 ELECTRICAL SYSTEMS DESIGNER CPT-33416 Urine Dip (Floor Use Only) 20:21:44 ELECTRICAL SYSTEMS DESIGNER 201 02/12/11 CPT-38811 UA Dip Auto (Floor Use Only) 10:04:39 ELECTRICAL SYSTEMS DESIGNER 2 CPT-47525 Urine Dip (Floor Use Only) 13:27:28 ELECTRICAL SYSTEMS DESIGNER 201 02/12/01 CPT-35219 Bladder Scan 13:27:28 ELECTRICAL SYSTEMS DESIGNER CPT-19457 Abd single AP View 14:30:51 ELECTRICAL SYSTEMS DESIGNER CPT-OV Office Visit 10:15:43 CDT CPT-12014 Urine Dip (Floor Use Only) 17:22:21 CDT 201 02/09/02 CPT-78049 Bladder Scan 17:22:21 CDT
--- OUTSIDE RECORDS SUMMARY | 2020-05-05 11:20 | XMS REPORT | Clinical Summary ---
Author Author Talon, Jeri Wood Organization [employer] Address Unknown Phone Unavailable Allergies, Adverse Reactions, [...] encephalitis, myelitis, and encephalomyelitis Spasticity 781.0 Active eTsfaye Sherman MD Abnormal involuntary movements Hyperlipidemia 272.4 [...] MD Routine general medical examination at a [facility] acility Body Mass Index 21.0-21.9 [...] Tesfaye Sherman MD Dysuria High risk meds fci use V58.6 Active Tesfaye Sherman MD Long-term (current) drug use Yeast infection 112.9 Inactive Tesfaye Sherman MD Candidiasis of unspecified site Upper respiratory infection 465.9 Inactive Tesfaye Sherman MD Acute upper respiratory infections of un specified site Lower extremity edema, bilateral 782.3 Active 201 07/07/09 León Kodi PLASTIC SURGERY MANAGER Edema Peripheral neuropathy 356.9 Active Tesfaye lamb [...] for rest less leg syndrome. ROPINIROLE HCL 58812641256 No Longer Active MARCUS Panchal Active ROPINIROLE HCL 1 MG ORAL TABLET 1 tab po q hs R OPINIROLE HCL 13795458419 Active MARCUS Maravilla Active ROPINIROLE HCL 0.25 MG ORAL TABLET 1 TAB PO Q HS 05/31 ROPINIROLE HCL 89894990543 No Longer Active Tesfaye Sherman MD Ac tive PREDNISONE 20 MG ORAL TABLET 1 tab twice daily for 3 d ay, then one daily for three days PREDNISONE 54410764226 No Longer Active Tesfaye Sherman MD Active AMITRIPTYLINE HCL 50 MG ORAL TABLET 1 po q hs for sleep AMITRIPTYLINE HCL 97203751845 No Longer Active Tesfaye Sherman MD Active AMITRIPTYLINE HCL 10 MG ORAL TABLET 1 tablet nightly by mout h for neuropathy AMITRIPTYLINE HCL 60557793510 No Longer Active MARCUS Stapleton Active DIFLUCAN 100 MG ORAL TABLET 1 tablet by mouth daily 20 21/03/11 FLUCONAZOLE 45079034580 No Longer Active Tesfaye Sherman MD Acti ve BACTRIM DS 800-160 MG ORAL TABLET 1 tab by mouth twice daily 201 07/08/06 TRIMETHOPRIM-SULFAMETHOXAZOLE 40890951672 No Longer Active Umer Sherman MD Active CLARITIN 10 MG ORAL TABLET Take one by mouth daily LORATADINE 40498884916 Active Tesfaye Sherman MD Active SUDAFED 12 HOUR 120 MG ORAL TABLET EXTENDED RELEASE 12 HOUR 1 pill twice daily if needed for congestion PSEUDOEPHEDRINE HCL 169595895 13 No Longer Active Tesfaye Sherman MD Active FENOFIBRATE 145 MG ORAL TABLET 1 by mouth daily FENOFIBRATE 95259864134 Active Laurence Dominguez Active GABAPENTIN 300 MG ORAL CAPSULE 1 po daily GABAP ENTIN 03212458200 No Longer Active Tesfaye Sherman MD Active HYDROCHLOROTHIAZIDE 12.5 MG ORAL CAPSULE 1 pill by mough daily 2 HYDROCHLOROTHIAZIDE 28729288713 No Longer Active León Kodi PLASTIC SURGERY MANAGER Active VENLAFAXINE HCL 75 MG ORAL TABLET 1 am 1/ at noon 201 07/07/09 VENLAFAXINE HCL 43374167555 No Longer Active León Kodi PLASTIC SURGERY MANAGER Act trent DIFLUCAN 100 MG ORAL TABLET 1 tablet by mouth daily 20 19/02/09 FLUCONAZOLE 93283002179 No Longer Active León Kodi PLASTIC SURGERY MANAGER Active DIFLUCAN 100 MG ORAL TABLET 1 tablet by mouth daily 20 19/02/09 FLUCONAZOLE 96901946673 No Longer Active León Kodi PLASTIC SURGERY MANAGER Active OXYCODONE-ACETAMINOPHEN 5-325 MG ORAL TABLET Take one tablet by mouth every 6 hours 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 Use sparingly OXYCODONE-ACETAMINOPHEN 12127624600 Active Tesfaye villar MD Active CLONAZEPAM 0.5 MG ORAL TABLET Take 1/2 qam, and 1/2 qpm CLONAZEPAM 18070521498 Active Tesfaye Sherman MD Active PRELIEF 340 (65-50) MG (CA-P) ORAL TABLET CALCIUM GLYCEROPHOSPHATE 33700525768 No Longer Active Tesfaye Sherman MD Active SUDAFED 24 HOUR 240 MG ORAL TABLET EXTENDED RELEASE 24 HOUR 1 tab po daily PSEUDOEPHEDRINE HCL 83974494334 No Longer Active Raul Sherman MD Active RED YEAST RICE 600 MG ORAL CAPSULE 1 pill by mouth daily RED YEAST RICE EXTRACT 60710047361 No Longer Active Tesfaye Sherman MD Active REPHRESH PRO-B ORAL CAPSULE 1 tablet daily LACT OBACILLUS 36685104798 No Longer Active Tesfaye Sherman MD Active ABILIFY 2 MG ORAL TABLET 1 by mouth daily. MARIA ELENA PIPRAZOLE 78403138071 Active Tesfaye Sherman MD Active CYMBALTA 60 MG ORAL CAPSULE DELAYED RELEASE PARTICLES 1 cap by mouth daily for pain DULOXETINE HCL 87083314389 Active MARCUS Lindsay Active DIFLUCAN 100 MG ORAL TABLET 1 tablet by mouth daily 20 20/06/06 FLUCONAZOLE 32005120780 No Longer Active Tesfaye Sherman MD Acti ve PREDNISONE 20 MG ORAL TABLET 1 tablet by mouth twice d aily for 3 days, then 1 tablet daily for 3 days PREDNISONE 15754859605 No L onger Active Tesfaye Sherman MD Active BACTRIM DS 800-160 MG ORAL TABLET 1 tab by mouth twice daily 201 06/09/02 TRIMETHOPRIM-SULFAMETHOXAZOLE 62165740732 No Longer Active Fer Dominguez Active DIFLUCAN 100 MG ORAL TABLET 1 tablet by mouth daily 20 20/05/01 FLUCONAZOLE 21335750436 No Longer Active Tesfaye Sherman MD Acti ve ZITHROMAX 250 MG ORAL TABLET 2 po today, then 1 po q days 2-5 20 20/04/28 AZITHROMYCIN 71161448720 No Longer Active Tesfaye Sherman MD Active MECLIZINE HCL 25 MG ORAL TABLET one tab po qday prn dizziness 20 17/09/06 MECLIZINE HCL 53323583210 No Longer Active Tesfaye Sherman MD Active PROAIR HFA 108 (90 BASE) MCG/ACT INHALATION AEROSOL SO LUTION 1 puff every 6 hours as needed ALBUTEROL SULFATE 80687042447 No Long er Active Tesfaye Sherman MD Active PREDNISONE 20 MG ORAL TABLET 1 tab twice daily for 3 d ay, then one daily for three days PREDNISONE 38986570328 No Longer Active Tesfaye Sherman MD Active MECLIZINE HCL 25 MG ORAL TABLET one 4 times a day as needed for dizziness MECLIZINE HCL 46037709536 Active Tesfaye Sherman MD Active AMOXICILLIN 500 MG ORAL CAPSULE 1 cap by mouth three times a day AMOXICILLIN 36883706504 No Longer Active Laurence Raida Acti ve DIFLUCAN 100 MG ORAL TABLET 1 tablet by mouth daily 20 19/08/26 FLUCONAZOLE 33807742508 No Longer Active Tesfaye Sherman MD Acti ve BACTRIM DS 800-160 MG ORAL TABLET 1 tab by mouth twice daily 201 05/10/28 TRIMETHOPRIM-SULFAMETHOXAZOLE 41478402199 No Longer Active Fer mastersa Angelica Active FOSAMAX 70 MG ORAL TABLET 1 po qweek. Take 30min prio r to first food/drink. Avoid lying down x 1 hour. ALENDRONATE SODIUM 80233032 144 No Longer Active Laurence Dominguez Active CYMBALTA 60 MG ORAL CAPSULE DELAYED RELEASE PARTICLES Take 1 tablet by mouth daily DULOXETINE HCL 05254328547 No Longer Active Edith Burch MD Active CYMBALTA 30 MG ORAL CAPSULE DELAYED RELEASE PARTICLES 1 cap by mouth daily with 60mg DULOXETINE HCL 97581395210 No Longer Active Jordan Burch MD Active FISH OIL 1000 MG ORAL CAPSULE DELAYED RELEASE 1 pill b y mouth daily for cholesterol OMEGA-3 FATTY ACIDS 45851039113 Active Cee Jaffe LPN Active DIFLUCAN 100 MG ORAL TABLET 1 tablet by mouth daily 20 19/03/05 FLUCONAZOLE 34551651576 No Longer Active Tesfaye Sherman MD Acti ve BACTRIM DS 800-160 MG ORAL TABLET 1 tab by mouth twice daily 201 05/06/28 TRIMETHOPRIM-SULFAMETHOXAZOLE 45076132463 No Longer Active Umer Sherman MD Active BACTRIM DS 800-160 MG ORAL TABLET 1 tab by mouth twice daily 201 05/04/15 TRIMETHOPRIM-SULFAMETHOXAZOLE 87033756085 No Longer Active Umer Sherman MD Active DIFLUCAN 150 MG ORAL TABLET 1 tablet by mouth daily 20 18/09/20 FLUCONAZOLE 37957333720 No Longer Active Tesfaye Sherman MD Acti ve BACTRIM DS 800-160 MG ORAL TABLET 1 tab by mouth twice daily 201 04/13/17 TRIMETHOPRIM-SULFAMETHOXAZOLE 46175626210 No Longer Active Umer Sherman MD Active CEFTIN 250 MG ORAL TABLET 1 tablet twice daily x 7 days CEFUROXIME AXETIL 90361468917 No Longer Active Tesfaye Sherman MD Active DIFLUCAN 100 MG ORAL TABLET 1 tablet by mouth every other da y for 2 doses FLUCONAZOLE 15363654468 No Longer Active Tesfaye barron MD Active DIFLUCAN 100 MG ORAL TABLET 1 tablet by mouth daily X 3 DAYS 201 04/09/01 FLUCONAZOLE 21016123617 No Longer Active Rj Lyons tive MIRTAZAPINE 15 MG ORAL TABLET 1/2 tab by mouth at bedtime. 03/13 MIRTAZAPINE 42016439816 No Longer Active Tesfaye Sherman MD Active BACTRIM DS 800-160 MG ORAL TABLET 1 tab by mouth twice daily 201 04/09/01 TRIMETHOPRIM-SULFAMETHOXAZOLE 15155977653 No Longer Active Umer Sherman MD Active PRAMIPEXOLE DIHYDROCHLORIDE 0.125 MG ORAL TABLET take 1 tablet po qhs for restless leg syndrome. PRAMIPEXOLE DIHYDROCHLORI DE 12317210655 No Longer Active Tesfaye Sherman MD Active MAGNESIUM 400 MG ORAL TABLET 1 tab po daily MAGNE SIUM 66868098313 Active Chelsea Cardenas APRN Active CETIRIZINE HCL 5 MG ORAL TABLET Take 1 tablet by mouth daily CETIRIZINE HCL 17464110088 No Longer Active Chelsea Cardenas APRN Activ e TRIMETHOPRIM 100 MG ORAL TABLET 1/2 qd TRIM ETHOPRIM 11305176119 No Longer Active Chelsea Cardenas APRN Active BACTRIM DS 800-160 MG ORAL TABLET 1 tab by mouth twice daily 201 04/04/11 TRIMETHOPRIM-SULFAMETHOXAZOLE 85782410671 No Longer Active Umer Sherman MD Active BACTRIM DS 800-160 MG ORAL TABLET 1 tab by mouth twice daily X 10 DAYS TRIMETHOPRIM-SULFAMETHOXAZOLE 14932434179 No Longer Active Tesfaye Sherman MD Active AMOXICILLIN 500 MG ORAL CAPSULE 1 cap by mouth three times a day AMOXICILLIN 95928574013 No Longer Active Adriana Arredondo, A A ctive B-12 1000 MCG ORAL LOZENGE 1 tab po daily CYANO COBALAMIN 42766801844 Active Tesfaye Sherman MD Active VITAMIN D3 2000 UNIT ORAL TABLET 1 daily, for vitamin D deficien cy CHOLECALCIFEROL 23054973940 No Longer Active Tesfaye Sherman MD Active TIZANIDINE HCL 2 MG ORAL TABLET take 1-2 tablet by [facility] every day at bedtime at 9pm PRN TIZANIDINE HCL 45184089192 Active Tesfaye hewitt MD Active ZITHROMAX 250 MG ORAL TABLET 2 po today, then 1 po q days 2-5 20 15/02/10 AZITHROMYCIN 14203103022 No Longer Active Tesfaye Sherman MD Active BACTRIM DS 800-160 MG ORAL TABLET 1 tab by mouth twice daily 201 03/03/23 TRIMETHOPRIM-SULFAMETHOXAZOLE 95329230436 No Longer Active Umer Sherman MD Active [facility] NIACIN FLUSH FREE 400-100 MG ORAL CAPSULE 1 daily NIACIN-INOSITOL 61424308079 Active Kayla Cooper MD Activ e DIFLUCAN 150 MG ORAL TABLET 1 qd FLUCONAZOL E 12168831224 No Longer Active Kayla Cooper MD Active FLUTICASONE PROPIONATE 50 MCG/ACT NASAL SUSPENSION 1 spray each nostril twice daily FLUTICASONE PROPIONATE 15736360170 Active Umer Sherman MD Active LOVASTATIN 20 MG ORAL TABLET Take 1 tablet by mouth daily LOVASTATIN 10838265697 No Longer Active Tesfaye Sherman MD Acti ve MELOXICAM 7.5 MG ORAL TABLET 1 tablet by mouth daily 2 MELOXICAM 52428679973 No Longer Active Tesfaye Sherman MD Acti ve GABAPENTIN 300 MG ORAL CAPSULE Take two tablets by mouth every e vening GABAPENTIN 61429036969 No Longer Active Edith Burch MD A ctive BACLOFEN 10 MG ORAL TABLET Take one tablet by mouth three times a d ay BACLOFEN 34677512941 Active Kayla Cooper MD Active GABAPENTIN 300 MG ORAL CAPSULE Take two tablets by mouth every e vening GABAPENTIN 300 MG ORAL CAPSULE 407124 GABAPENTIN I nactive MELOXICAM 7.5 MG ORAL TABLET 1 tablet by mouth daily 2 MELOXICAM 7.5 MG ORAL TABLET 061947 MELOXICAM Inactive LOVASTATIN 20 MG ORAL TABLET Take 1 tablet by mouth daily LOVASTATIN 20 MG ORAL TABLET 309088 LOVASTATIN Inactive DIFLUCAN 150 MG ORAL TABLET 1 qd DIFLUCAN 150 MG ORAL TABLET 889057 FLUCONAZOLE Inactive VITAMIN D3 2000 UNIT ORAL TABLET 1 daily, for vitamin D deficien cy VITAMIN D3 2000 UNIT ORAL TABLET CHOLECALCIFEROL Inactive AMOXICILLIN 500 MG ORAL CAPSULE 1 cap by mouth three times a day AMOXICILLIN 500 MG ORAL CAPSULE 547237 AMOXICILLIN Inactive BACTRIM DS 800-160 MG ORAL TABLET 1 tab by mouth twice daily X 10 DAYS BACTRIM DS 800-160 MG ORAL TABLET 937040 TRIMETHOPRIM-SULFAMETHOXAZOLE Inactive TRIMETHOPRIM 100 MG ORAL TABLET 1/2 qd 7 TRIMETHOPRIM 100 MG ORAL TABLET 677271 TRIMETHOPRIM Inactive CETIRIZINE HCL 5 MG ORAL TABLET Take 1 tablet by mouth daily CETIRIZINE HCL 5 MG ORAL TABLET 3107292 CETIRIZINE HCL Inactive PRAMIPEXOLE DIHYDROCHLORIDE 0.125 MG ORAL TABLET take 1 tablet po qhs for restless leg syndrome. PRAMIPEXOLE DIHYD ROCHLORIDE 0.125 MG ORAL TABLET 184202 PRAMIPEXOLE DIHYDROCHLORIDE Inactive MIRTAZAPINE 15 MG ORAL TABLET 1/2 tab by mouth at bedtime. 03/13 MIRTAZAPINE 15 MG ORAL TABLET 545571 MIRTAZAPINE In active DIFLUCAN 100 MG ORAL TABLET 1 tablet by mouth daily X 3 DAYS 201 04/09/01 DIFLUCAN 100 MG ORAL TABLET 048427 FLUCONAZOLE Inac tive DIFLUCAN 100 MG ORAL [...] 30 MG ORAL CAPSULE DELAYED RELEASE PARTICLES 536456 DULOXETINE HCL Inactive CYMBALTA 60 MG ORAL CAPSULE DELAYED RELEASE PARTICLES Take 1 tablet by mouth daily CYMBALTA 60 MG ORAL CAPSULE DELAYED RELEA SE PARTICLES 476204 DULOXETINE HCL Inactive FOSAMAX 70 MG ORAL TABLET 1 po qweek. Take 30min prio r to first food/drink. Avoid lying down x 1 hour. FOSAMAX 70 MG ORAL TA BLET 128192 ALENDRONATE SODIUM Inactive DIFLUCAN 100 MG ORAL TABLET 1 tablet by mouth daily 20 19/08/26 DIFLUCAN 100 MG ORAL TABLET 498763 FLUCONAZOLE Inactive PREDNISONE 20 MG ORAL TABLET 1 tab twice daily for 3 d ay, then one daily for three days PREDNISONE 20 MG ORAL TABLET 787758 PREDNIS ONE Inactive PROAIR HFA 108 (90 BASE) MCG/ACT INHALATION AEROSOL SO LUTION 1 puff every 6 hours as needed PROAIR HFA 108 (90 B ASE) MCG/ACT INHALATION AEROSOL SOLUTION ALBUTEROL SULFATE Inactive MECLIZINE HCL 25 MG ORAL TABLET one tab po qday prn dizziness 20 17/09/06 MECLIZINE HCL 25 MG ORAL TABLET 601713 MECLIZINE HCL Inactive PREDNISONE 20 MG ORAL TABLET 1 tablet by mouth twice d aily for 3 days, then 1 tablet daily for 3 days PREDNISONE 20 MG ORAL TA BLET 824601 PREDNISONE Inactive DIFLUCAN 100 MG ORAL TABLET 1 tablet by mouth daily 20 20/06/06 DIFLUCAN 100 MG ORAL TABLET 810591 FLUCONAZOLE Inactive REPHRESH PRO-B ORAL CAPSULE 1 tablet daily REPHRESH PRO-B ORAL CAPSULE LACTOBACILLUS Inactive RED YEAST RICE 600 MG ORAL CAPSULE 1 pill by mouth daily RED YEAST RICE 600 MG ORAL CAPSULE 108082 RED YEAST RICE EXTRACT In active SUDAFED [...] 20 19/02/09 DIFLUCAN 100 MG ORAL TABLET 374376 FLUCONAZOLE Inactive DIFLUCAN 100 MG ORAL TABLET 1 tablet by mouth daily 20 19/02/09 DIFLUCAN 100 MG ORAL TABLET 695767 FLUCONAZOLE Inactive VENLAFAXINE HCL 75 MG ORAL TABLET 1 am 1/2 at noon 201 07/07/09 VENLAFAXINE HCL 75 MG ORAL TABLET 835934 VENLAFAXINE HCL Inacti ve GABAPENTIN 300 MG ORAL CAPSULE 1 po daily GABAPENTIN 300 MG ORAL CAPSULE 442085 GABAPENTIN Inactive SUDAFED 12 HOUR 120 MG ORAL TABLET EXTENDED RELEASE 12 HOUR 1 pill twice daily if needed for congestion SUDAFED 12 HOUR 120 MG ORAL TABLET EXTENDED RELEASE 12 HOUR PSEUDOEPHEDRINE HCL Inactive AMITRIPTYLINE HCL 10 MG ORAL TABLET 1 tablet nightly by mout h for neuropathy AMITRIPTYLINE HCL 10 MG ORAL TABLET 181283 AMITRIPTYLINE HCL Inactive AMITRIPTYLINE HCL 50 MG ORAL TABLET 1 po q hs for sleep AMITRIPTYLINE HCL 50 MG ORAL TABLET 270593 AMITRIPTYLINE HCL Inac tive PREDNISONE 20 MG ORAL TABLET 1 tab twice daily for 3 d ay, then one daily for three days PREDNISONE 20 MG ORAL TABLET 227615 PREDNIS ONE Inactive ROPINIROLE HCL 0.25 MG ORAL TABLET 1 TAB PO Q HS 05/31 ROPINIROLE HCL 0.25 MG ORAL TABLET 703081 ROPINIROLE HCL Inact trent ROPINIROLE HCL 0.5 MG ORAL TABLET 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 ROPINIROLE HCL 0.5 MG ORAL TABLET 875323 ROPINIR OLE HCL Inactive BACTRIM DS 800-160 MG ORAL TABLET 1 tab by mouth twice daily 201 03/03/23 BACTRIM DS 800-160 MG ORAL TABLET 19830105 TRIMETHOPRIM-SULFAMETHOXAZOLE Inactive ZITHROMAX 250 MG ORAL TABLET 2 po today, then 1 po q days 2-5 20 15/02/10 ZITHROMAX 250 MG ORAL TABLET 923904 AZITHROMYCIN Mayela ctive BACTRIM DS 800-160 MG [...] a day AMOXICILLIN 500 MG ORAL CAPSULE 247199 AMOXICILLIN Inactive ZITHROMAX 250 MG ORAL TABLET 2 po today, then 1 po q days 2-5 20 20/04/28 ZITHROMAX 250 MG ORAL TABLET 997293 AZITHROMYCIN [place] ctive DIFLUCAN 100 MG ORAL TABLET 1 [...] -- NO DECISION MADE DURABLE POWER OF PUMP OPERATOR FOR HEALTHCARE DISCUSED WITH PATIENT -- [...] Magnesium - Chemistry cholesterol, serum 196 mg/dL 266-842 4730/07/30 triglyceride, serum, fasting 86 mg/dL 30-200 HDL cholesterol, serum 41 mg/dL 32-60 LDL cholesterol, serum 138 mg/dL 0-130 sodium, serum 140 mmol/L 216-930 0094/07/30 carbon dioxide, venous blood 28.6 mmol/L 21.0-32 [...] Negative mg/dL Negative sodium, serum 139 mmol/L 028-478 9630/11/07 carbon dioxide, venous blood 28.4 mmol/L 21.0-32 [...] ative Encounters Code Encounter Date Provider Facility CPT-13723 14014-Def Vst-Est Level IV 14:08:03 C BRIDGET Sherman MD [facility] CPT-16695 Level 3 Est. Patient 18:06:36 CDT Tesfaye pearson MD [facility] CPT-31156 [id number] Vst-Est Level IV 17:09:34 C BRIDGET Sherman MD [facility] CPT-07504 Level 3 Est. Patient 17:27:08 CDT León hernandez APRN [facility]-66907 25514-Cvx Vst-Est Level IV 14:00:[address] Tesfaye Sherman MD [facility] CPT-67055 [id number] Vst-Est Level IV 19:27:[address] Tesfaye Sherman MD [facility] CPT-44611 [id number] Vst-Est Level IV 10:41:41 C DT Tesfaye Sherman MD [facility] CPT-26547 [id number] Vst-Est Level III 09:40:56 CDT Tesfaye Sherman MD [facility] CPT-74131 Level 4 Est. Patient 22:18:12 CDT Tesfaye pearson MD [facility] CPT-62781 Level 4 Est. Patient 14:44:33 NEWS LIBRARY DIRECTOR Tesfaye pearson MD [facility] CPT-99653 Level 4 Est. Patient 13:55:29 NEWS LIBRARY DIRECTOR Tesfaye pearson MD [facility] CPT-48052 Level 4 Est. Patient 17:07:34 NEWS LIBRARY DIRECTOR Tesfaye pearson MD [facility] CPT-11962 Level 4 Est. Patient 13:56:54 CDT Tesfaye pearson MD [facility] CPT-42239 Level 4 Est. Patient 13:24:25 CDT Chelsea sanz APRN [facility] CPT-36120 Level 4 Est. Patient 09:14:56 CDT Tesfaye pearson MD [facility] CPT-11784 Level 4 Est. Patient 18:40:25 NEWS LIBRARY DIRECTOR Tesfaye pearson MD [facility] CPT-82457 Level 4 Est. Patient 18:13:07 NEWS LIBRARY DIRECTOR Tesfaye pearson MD [facility] CPT-08898 Level 3 Est. Patient 10:46:32 CDT Rj cotto DO [facility] CPT-61464 Level 4 Est. Patient 20:19:25 CDT Tesfaye pearson MD [facility] CPT-03710 Level 3 Est. Patient 09:07:31 CDT Tesfaye pearson MD [facility] CPT-67296 Level 4 Est. Patient 13:12:56 CDT Tesfaye pearson MD [facility] CPT-29182 Level 4 Est. Patient 21:24:55 NEWS LIBRARY DIRECTOR Tesfaye pearson MD [facility] CPT-57881 Level 3 Est. Patient 13:45:04 NEWS LIBRARY DIRECTOR Tesfaye pearson MD [facility] CPT-20116 Level 4 Est. Patient 13:50:45 CDT Tesfaye pearson MD [facility] CPT-65251 Level 3 Est. Patient 10:16:10 CDT Tesfaye pearson MD [facility] CPT-39272 Level 3 Est. Patient 16:36:07 NEWS LIBRARY DIRECTOR Kayla jameson MD [facility] CPT-18976 Level 4 Est. Patient 16:00:14 NEWS LIBRARY DIRECTOR Tesfaye pearson MD [facility] CPT-06102 Level 4 Est. Patient 11:02:24 NEWS LIBRARY DIRECTOR Tesfaye pearson MD [facility] CPT-01266 Level 3 Est. Patient 20:21:43 NEWS LIBRARY DIRECTOR Kayla jameson MD [facility]-59561 Level 3 Est. Patient 13:27:28 NEWS LIBRARY DIRECTOR Kayla jameson MD [facility]-89461 Level 4 Est. Patient 15:57:17 NEWS LIBRARY DIRECTOR Tesfaye pearson MD [facility] CPT-77258 Level 3 New Patient 13:25:47 CDT Tesfaye kidd MD [facility] CPT-50535 Level 3 New Patient 17:22:21 CDT Kayla angel MD [facility] Procedures Code Procedure Name Date Entry Date Standard Desc ription CPT-45565 Venipuncture Draw Fee 16:12:22 CDT CPT-G0439 Subsequent Annual Wellness Exam 18:06:36 CDT CPT-G0439 Subsequent Annual Wellness Exam 22:18:11 CDT CPT-32139 Bone Density - XRAY USE ONLY 11:43:58 CDT 2 CPT-26530 Bone Density - XRAY USE ONLY 10:05:16 CDT 2 CPT-55009 Prv Med New Pt 40-64 yrs 18:19:25 CDT 2016 CPT-36835 Foot, right, comp min 3V - XRAY USE ONLY 10:38:34 CDT CPT-G0439 Subsequent Annual Wellness Exam 13:55:04 CDT CPT-G0438 Initial Annual Wellness Exam 11:23:17 CD T CPT-J2930 Solu Medrol 125 mg (Methyl Prednisolone Sodium Succinate) 17:29:12 NEWS LIBRARY DIRECTOR CPT-23473 Abx/Therapy Injection 17:29:11 NEWS LIBRARY DIRECTOR CPT-J2930 Solu Medrol 125 mg (Methyl Prednisolone Sodium Succinate) 12:34:38 NEWS LIBRARY DIRECTOR CPT-J3420 Vitamin B12 1000mcg (Cyanocobalamin) 09:12:55 CDT CPT-J3420 Vitamin B12 1000mcg (Cyanocobalamin) 16:28:06 NEWS LIBRARY DIRECTOR CPT-59600 Venipuncture Draw Fee 08:39:53 CDT CPT-J3420 Vitamin B12 1000mcg (Cyanocobalamin) 08:46:22 CDT CPT-88758 Abx/Therapy Injection 08:46:22 CDT CPT-J3420 Vitamin B12 1000mcg (Cyanocobalamin) 08:41:26 CDT CPT-19917 Abx/Therapy Injection 08:41:26 CDT CPT-J3420 Vitamin B12 1000mcg (Cyanocobalamin) 08:57:15 CDT CPT-48331 Abx/Therapy Injection 08:57:15 CDT CPT-J3420 Vitamin B12 1000mcg (Cyanocobalamin) 10:59:03 CDT CPT-11770 Abx/Therapy Injection 10:59:03 CDT CPT-J3420 Vitamin B12 1000mcg (Cyanocobalamin) 15:05:39 CDT CPT-31984 Abx/Therapy Injection 15:05:39 CDT CPT-J3420 Vitamin B12 1000mcg (Cyanocobalamin) 13:50:45 CDT CPT-J3420 Vitamin B12 1000mcg (Cyanocobalamin) 08:48:55 CDT CPT-86003 Abx/Therapy Injection 08:48:55 CDT CPT-J3420 Vitamin B12 1000mcg (Cyanocobalamin) 09:14:54 CDT CPT-01947 Abx/Therapy Injection 09:14:54 CDT CPT-J3420 Vitamin B12 1000mcg (Cyanocobalamin) 09:06:06 CDT CPT-98172 Abx/Therapy Injection 09:06:06 CDT CPT-J3420 Vitamin B12 1000mcg (Cyanocobalamin) 09:49:14 CDT CPT-75644 Abx/Therapy Injection 09:49:14 CDT CPT-J3420 Vitamin B12 1000mcg (Cyanocobalamin) 09:10:30 NEWS LIBRARY DIRECTOR CPT-69310 Abx/Therapy Injection 09:10:30 NEWS LIBRARY DIRECTOR CPT-J3420 Vitamin B12 1000mcg (Cyanocobalamin) 09:11:07 NEWS LIBRARY DIRECTOR CPT-66968 Abx/Therapy Injection 09:11:07 NEWS LIBRARY DIRECTOR CPT-J3420 Vitamin B12 1000mcg (Cyanocobalamin) 09:57:03 NEWS LIBRARY DIRECTOR CPT-20804 Abx/Therapy Injection 09:57:03 NEWS LIBRARY DIRECTOR CPT-J3420 Vitamin B12 1000mcg (Cyanocobalamin) 09:23:21 NEWS LIBRARY DIRECTOR CPT-61105 Abx/Therapy Injection 09:23:21 NEWS LIBRARY DIRECTOR CPT-40788 Urine Dip (Floor Use Only) 20:21:44 NEWS LIBRARY DIRECTOR 201 02/12/11 CPT-94390 UA Dip Auto (Floor Use Only) 10:04:39 NEWS LIBRARY DIRECTOR 2 CPT-29851 Urine Dip (Floor Use Only) 13:27:28 NEWS LIBRARY DIRECTOR 201 02/12/01 CPT-46440 Bladder Scan 13:27:28 NEWS LIBRARY DIRECTOR CPT-85553 Abd single AP View 14:30:51 NEWS LIBRARY DIRECTOR CPT-OV Office Visit 10:15:43 CDT CPT-29494 Urine Dip (Floor Use Only) 17:22:21 CDT 201 02/09/02 CPT-89015 Bladder Scan 17:22:21 CDT
--- OUTSIDE RECORDS SUMMARY | 2020-05-05 11:21 | XMS REPORT | Clinical Summary ---
Author Author Talon, Jeri Wood Organization [employer] Address Unknown Phone Unavailable Allergies, Adverse Reactions, [...] Routine general medical examination at [facility] acility Sinusitis 461.9 Resolved Tesfaye Sherman [...] general medical examination at a [facility] acility Body Mass Index [...] Tesfaye Sherman MD Dysuria High risk meds skilled nursing use V58.6 Active Tesfaye Sherman MD Long-term (current) drug use Yeast infection 112.9 Inactive Tesfaye Sherman MD Candidiasis of unspecified site Upper respiratory infection 465.9 Inactive Tesfaye Sherman MD Acute upper respiratory infections of un specified site Lower extremity edema, bilateral 782.3 Active 201 07/07/09 León Kodi AWARD MACHINE OPERATOR Edema Peripheral neuropathy 356.9 Active Tesfaye [...] for rest less leg syndrome. ROPINIROLE HCL 32173508346 No Longer Active MARCUS Panchal Active ROPINIROLE HCL 1 MG ORAL TABLET 1 tab po q hs R OPINIROLE HCL 08135762793 Active MARCUS Maravilla Active ROPINIROLE HCL 0.25 MG ORAL TABLET 1 TAB PO Q HS 05/31 ROPINIROLE HCL 80070887432 No Longer Active Tesfaye Sherman MD Ac tive PREDNISONE 20 MG ORAL TABLET 1 tab twice daily for 3 d ay, then one daily for three days PREDNISONE 08075772971 No Longer Active Tesfaye Sherman MD Active AMITRIPTYLINE HCL 50 MG ORAL TABLET 1 po q hs for sleep AMITRIPTYLINE HCL 82634209401 No Longer Active Tesfaye Sherman MD Active AMITRIPTYLINE HCL 10 MG ORAL TABLET 1 tablet nightly by mout h for neuropathy AMITRIPTYLINE HCL 53716942965 No Longer Active MARCUS Stapleton Active DIFLUCAN 100 MG ORAL TABLET 1 tablet by mouth daily 20 21/03/11 FLUCONAZOLE 19170401035 No Longer Active Tesfaye Sherman MD Acti ve BACTRIM DS 800-160 MG ORAL TABLET 1 tab by mouth twice daily 201 07/08/06 TRIMETHOPRIM-SULFAMETHOXAZOLE 35481827304 No Longer Active Umer Sherman MD Active CLARITIN 10 MG ORAL TABLET Take one by mouth daily LORATADINE 76109452994 Active Tesfaye Sherman MD Active SUDAFED 12 HOUR 120 MG ORAL TABLET EXTENDED RELEASE 12 HOUR 1 pill twice daily if needed for congestion PSEUDOEPHEDRINE HCL 581918695 13 No Longer Active Tesfaye Sherman MD Active FENOFIBRATE 145 MG ORAL TABLET 1 by mouth daily FENOFIBRATE 27816480491 Active Laurence Dominguez Active GABAPENTIN 300 MG ORAL CAPSULE 1 po daily GABAP ENTIN 09331822581 No Longer Active Tesfaye Sherman MD Active HYDROCHLOROTHIAZIDE 12.5 MG ORAL CAPSULE 1 pill by mough daily 2 HYDROCHLOROTHIAZIDE 99959085714 No Longer Active León Kodi AWARD MACHINE OPERATOR Active VENLAFAXINE HCL 75 MG ORAL TABLET 1 am 1/ at noon 201 07/07/09 VENLAFAXINE HCL 81569001700 No Longer Active León Kodi AWARD MACHINE OPERATOR Act trent DIFLUCAN 100 MG ORAL TABLET 1 tablet by mouth daily 20 19/02/09 FLUCONAZOLE 94608335779 No Longer Active León Kodi AWARD MACHINE OPERATOR Active DIFLUCAN 100 MG ORAL TABLET 1 tablet by mouth daily 20 19/02/09 FLUCONAZOLE 44961422986 No Longer Active León Kodi AWARD MACHINE OPERATOR Active OXYCODONE-ACETAMINOPHEN 5-325 MG ORAL TABLET Take one tablet by mouth every 6 hours 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 Use sparingly OXYCODONE-ACETAMINOPHEN 32377446763 Active Tesfaye villar MD Active CLONAZEPAM 0.5 MG ORAL TABLET Take 1/2 qam, and 1/2 qpm CLONAZEPAM 14120999712 Active Tesfaye Sherman MD Active PRELIEF 340 (65-50) MG (CA-P) ORAL TABLET CALCIUM GLYCEROPHOSPHATE 20451544589 No Longer Active Tesfaye Sherman MD Active SUDAFED 24 HOUR 240 MG ORAL TABLET EXTENDED RELEASE 24 HOUR 1 tab po daily PSEUDOEPHEDRINE HCL 12559448952 No Longer Active Raul Sherman MD Active RED YEAST RICE 600 MG ORAL CAPSULE 1 pill by mouth daily RED YEAST RICE EXTRACT 01327565778 No Longer Active Tesfaye Sherman MD Active REPHRESH PRO-B ORAL CAPSULE 1 tablet daily LACT OBACILLUS 30252274042 No Longer Active Tesfaye Sherman MD Active ABILIFY 2 MG ORAL TABLET 1 by mouth daily. MARIA ELENA PIPRAZOLE 66425805317 Active Tesfaye Sherman MD Active CYMBALTA 60 MG ORAL CAPSULE DELAYED RELEASE PARTICLES 1 cap by mouth daily for pain DULOXETINE HCL 48638922321 Active MARCUS Lindsay Active DIFLUCAN 100 MG ORAL TABLET 1 tablet by mouth daily 20 20/06/06 FLUCONAZOLE 87416563346 No Longer Active Tesfaye Sherman MD Acti ve PREDNISONE 20 MG ORAL TABLET 1 tablet by mouth twice d aily for 3 days, then 1 tablet daily for 3 days PREDNISONE 71199130696 No L onger Active Tesfaye Sherman MD Active BACTRIM DS 800-160 MG ORAL TABLET 1 tab by mouth twice daily 201 06/09/02 TRIMETHOPRIM-SULFAMETHOXAZOLE 57505987692 No Longer Active Fer Dominguez Active DIFLUCAN 100 MG ORAL TABLET 1 tablet by mouth daily 20 20/05/01 FLUCONAZOLE 32815259324 No Longer Active Tesfaye Sherman MD Acti ve ZITHROMAX 250 MG ORAL TABLET 2 po today, then 1 po q days 2-5 20 20/04/28 AZITHROMYCIN 84656346866 No Longer Active Tesfaye Sherman MD Active MECLIZINE HCL 25 MG ORAL TABLET one tab po qday prn dizziness 20 17/09/06 MECLIZINE HCL 66408248008 No Longer Active Tesfaye Sherman MD Active PROAIR HFA 108 (90 BASE) MCG/ACT INHALATION AEROSOL SO LUTION 1 puff every 6 hours as needed ALBUTEROL SULFATE 41174146143 No Long er Active Tesfaye Sherman MD Active PREDNISONE 20 MG ORAL TABLET 1 tab twice daily for 3 d ay, then one daily for three days PREDNISONE 58916360593 No Longer Active Tesfaye Sherman MD Active MECLIZINE HCL 25 MG ORAL TABLET one 4 times a day as needed for dizziness MECLIZINE HCL 82954849895 Active Tesfaye Sherman MD Active AMOXICILLIN 500 MG ORAL CAPSULE 1 cap by mouth three times a day AMOXICILLIN 86537793778 No Longer Active Laurence Raida Acti ve DIFLUCAN 100 MG ORAL TABLET 1 tablet by mouth daily 20 19/08/26 FLUCONAZOLE 08557987922 No Longer Active Tesfaye Sherman MD Acti ve BACTRIM DS 800-160 MG ORAL TABLET 1 tab by mouth twice daily 201 05/10/28 TRIMETHOPRIM-SULFAMETHOXAZOLE 43078512574 No Longer Active Fer mastersa Angelica Active FOSAMAX 70 MG ORAL TABLET 1 po qweek. Take 30min prio r to first food/drink. Avoid lying down x 1 hour. ALENDRONATE SODIUM 44551760 144 No Longer Active Laurence Dominguez Active CYMBALTA 60 MG ORAL CAPSULE DELAYED RELEASE PARTICLES Take 1 tablet by mouth daily DULOXETINE HCL 19539293178 No Longer Active Edith Burch MD Active CYMBALTA 30 MG ORAL CAPSULE DELAYED RELEASE PARTICLES 1 cap by mouth daily with 60mg DULOXETINE HCL 03272189183 No Longer Active Jordan Burch MD Active FISH OIL 1000 MG ORAL CAPSULE DELAYED RELEASE 1 pill b y mouth daily for cholesterol OMEGA-3 FATTY ACIDS 26697068926 Active Cee Jaffe LPN Active DIFLUCAN 100 MG ORAL TABLET 1 tablet by mouth daily 20 19/03/05 FLUCONAZOLE 48047879387 No Longer Active Tesfaye Sherman MD Acti ve BACTRIM DS 800-160 MG ORAL TABLET 1 tab by mouth twice daily 201 05/06/28 TRIMETHOPRIM-SULFAMETHOXAZOLE 65159374901 No Longer Active Umer Sherman MD Active BACTRIM DS 800-160 MG ORAL TABLET 1 tab by mouth twice daily 201 05/04/15 TRIMETHOPRIM-SULFAMETHOXAZOLE 60683974810 No Longer Active Umer Sherman MD Active DIFLUCAN 150 MG ORAL TABLET 1 tablet by mouth daily 20 18/09/20 FLUCONAZOLE 13558383185 No Longer Active Tesfaye Sherman MD Acti ve BACTRIM DS 800-160 MG ORAL TABLET 1 tab by mouth twice daily 201 04/13/17 TRIMETHOPRIM-SULFAMETHOXAZOLE 06525991428 No Longer Active Umer Sherman MD Active CEFTIN 250 MG ORAL TABLET 1 tablet twice daily x 7 days CEFUROXIME AXETIL 49984249127 No Longer Active Tesfaye Sherman MD Active DIFLUCAN 100 MG ORAL TABLET 1 tablet by mouth every other da y for 2 doses FLUCONAZOLE 69268912024 No Longer Active Tesfaye barron MD Active DIFLUCAN 100 MG ORAL TABLET 1 tablet by mouth daily X 3 DAYS 201 04/09/01 FLUCONAZOLE 29279482144 No Longer Active Rj Lyons tive MIRTAZAPINE 15 MG ORAL TABLET 1/2 tab by mouth at bedtime. 03/13 MIRTAZAPINE 05894387556 No Longer Active Tesfaye Sherman MD Active BACTRIM DS 800-160 MG ORAL TABLET 1 tab by mouth twice daily 201 04/09/01 TRIMETHOPRIM-SULFAMETHOXAZOLE 79577044774 No Longer Active Umer Sherman MD Active PRAMIPEXOLE DIHYDROCHLORIDE 0.125 MG ORAL TABLET take 1 tablet po qhs for restless leg syndrome. PRAMIPEXOLE DIHYDROCHLORI DE 24258892872 No Longer Active Tesfaye Sherman MD Active MAGNESIUM 400 MG ORAL TABLET 1 tab po daily MAGNE SIUM 34692722797 Active Chelsea Cardenas APRN Active CETIRIZINE HCL 5 MG ORAL TABLET Take 1 tablet by mouth daily CETIRIZINE HCL 20257268449 No Longer Active Chelsea Cardenas APRN Activ e TRIMETHOPRIM 100 MG ORAL TABLET 1/2 qd TRIM ETHOPRIM 39648115665 No Longer Active Chelsea Cardenas APRN Active BACTRIM DS 800-160 MG ORAL TABLET 1 tab by mouth twice daily 201 04/04/11 TRIMETHOPRIM-SULFAMETHOXAZOLE 28110164378 No Longer Active Umer Sherman MD Active BACTRIM DS 800-160 MG ORAL TABLET 1 tab by mouth twice daily X 10 DAYS TRIMETHOPRIM-SULFAMETHOXAZOLE 57459755802 No Longer Active Tesfaye Sherman MD Active AMOXICILLIN 500 MG ORAL CAPSULE 1 cap by mouth three times a day AMOXICILLIN 14684575015 No Longer Active Adriana Arredondo, A A ctive B-12 1000 MCG ORAL LOZENGE 1 tab po daily CYANO COBALAMIN 27822106777 Active Tesfaye Sherman MD Active VITAMIN D3 2000 UNIT ORAL TABLET 1 daily, for vitamin D deficien cy CHOLECALCIFEROL 86805834590 No Longer Active Tesfaye Sherman MD Active TIZANIDINE HCL 2 MG ORAL TABLET take 1-2 tablet by [facility] every day at bedtime at 9pm PRN TIZANIDINE HCL 25296655634 Active Tesfaye hewitt MD Active ZITHROMAX 250 MG ORAL TABLET 2 po today, then 1 po q days 2-5 20 15/02/10 AZITHROMYCIN 08303271008 No Longer Active Tesfaye Sherman MD Active BACTRIM DS 800-160 MG ORAL TABLET 1 tab by mouth twice daily 201 03/03/23 TRIMETHOPRIM-SULFAMETHOXAZOLE 63076955467 No Longer Active Umer Sherman MD Active [facility] NIACIN FLUSH FREE 400-100 MG ORAL CAPSULE 1 daily NIACIN-INOSITOL 50688860562 Active Kayla Cooper MD Activ e DIFLUCAN 150 MG ORAL TABLET 1 qd FLUCONAZOL E 69552219297 No Longer Active Kayla Cooper MD Active FLUTICASONE PROPIONATE 50 MCG/ACT NASAL SUSPENSION 1 spray each nostril twice daily FLUTICASONE PROPIONATE 73422973925 Active Umer Sherman MD Active LOVASTATIN 20 MG ORAL TABLET Take 1 tablet by mouth daily LOVASTATIN 84712941914 No Longer Active Tesfaye Sherman MD Acti ve MELOXICAM 7.5 MG ORAL TABLET 1 tablet by mouth daily 2 MELOXICAM 78086125129 No Longer Active Tesfaye Sherman MD Acti ve GABAPENTIN 300 MG ORAL CAPSULE Take two tablets by mouth every e vening GABAPENTIN 83962493531 No Longer Active Edith Burch MD A ctive BACLOFEN 10 MG ORAL TABLET Take one tablet by mouth three times a d ay BACLOFEN 01744429861 Active Kayla Cooper MD Active GABAPENTIN 300 MG ORAL CAPSULE Take two tablets by mouth every e vening GABAPENTIN 300 MG ORAL CAPSULE 993413 GABAPENTIN I nactive MELOXICAM 7.5 MG ORAL TABLET 1 tablet by mouth daily 2 MELOXICAM 7.5 MG ORAL TABLET 670844 MELOXICAM Inactive LOVASTATIN 20 MG ORAL TABLET Take 1 tablet by mouth daily LOVASTATIN 20 MG ORAL TABLET 141104 LOVASTATIN Inactive DIFLUCAN 150 MG ORAL TABLET 1 qd DIFLUCAN 150 MG ORAL TABLET 389290 FLUCONAZOLE Inactive VITAMIN D3 2000 UNIT ORAL TABLET 1 daily, for vitamin D deficien cy VITAMIN D3 2000 UNIT ORAL TABLET CHOLECALCIFEROL Inactive AMOXICILLIN 500 MG ORAL CAPSULE 1 cap by mouth three times a day AMOXICILLIN 500 MG ORAL CAPSULE 644977 AMOXICILLIN Inactive BACTRIM DS 800-160 MG ORAL TABLET 1 tab by mouth twice daily X 10 DAYS BACTRIM DS 800-160 MG ORAL TABLET 332183 TRIMETHOPRIM-SULFAMETHOXAZOLE Inactive TRIMETHOPRIM 100 MG ORAL TABLET 1/2 qd 7 TRIMETHOPRIM 100 MG ORAL TABLET 255114 TRIMETHOPRIM Inactive CETIRIZINE HCL 5 MG ORAL TABLET Take 1 tablet by mouth daily CETIRIZINE HCL 5 MG ORAL TABLET 8702810 CETIRIZINE HCL Inactive PRAMIPEXOLE DIHYDROCHLORIDE 0.125 MG ORAL TABLET take 1 tablet po qhs for restless leg syndrome. PRAMIPEXOLE DIHYD ROCHLORIDE 0.125 MG ORAL TABLET 128596 PRAMIPEXOLE DIHYDROCHLORIDE Inactive MIRTAZAPINE 15 MG ORAL TABLET 1/2 tab by mouth at bedtime. 03/13 MIRTAZAPINE 15 MG ORAL TABLET 634405 MIRTAZAPINE In active DIFLUCAN 100 MG ORAL TABLET 1 tablet by mouth daily X 3 DAYS 201 04/09/01 DIFLUCAN 100 MG ORAL TABLET 523808 FLUCONAZOLE Inac tive DIFLUCAN 100 MG ORAL [...] 30 MG ORAL CAPSULE DELAYED RELEASE PARTICLES 498445 DULOXETINE HCL Inactive CYMBALTA 60 MG ORAL CAPSULE DELAYED RELEASE PARTICLES Take 1 tablet by mouth daily CYMBALTA 60 MG ORAL CAPSULE DELAYED RELEA SE PARTICLES 510658 DULOXETINE HCL Inactive FOSAMAX 70 MG ORAL TABLET 1 po qweek. Take 30min prio r to first food/drink. Avoid lying down x 1 hour. FOSAMAX 70 MG ORAL TA BLET 111529 ALENDRONATE SODIUM Inactive DIFLUCAN 100 MG ORAL TABLET 1 tablet by mouth daily 20 19/08/26 DIFLUCAN 100 MG ORAL TABLET 211053 FLUCONAZOLE Inactive PREDNISONE 20 MG ORAL TABLET 1 tab twice daily for 3 d ay, then one daily for three days PREDNISONE 20 MG ORAL TABLET 882720 PREDNIS ONE Inactive PROAIR HFA 108 (90 BASE) MCG/ACT INHALATION AEROSOL SO LUTION 1 puff every 6 hours as needed PROAIR HFA 108 (90 B ASE) MCG/ACT INHALATION AEROSOL SOLUTION ALBUTEROL SULFATE Inactive MECLIZINE HCL 25 MG ORAL TABLET one tab po qday prn dizziness 20 17/09/06 MECLIZINE HCL 25 MG ORAL TABLET 619891 MECLIZINE HCL Inactive PREDNISONE 20 MG ORAL TABLET 1 tablet by mouth twice d aily for 3 days, then 1 tablet daily for 3 days PREDNISONE 20 MG ORAL TA BLET 152959 PREDNISONE Inactive DIFLUCAN 100 MG ORAL TABLET 1 tablet by mouth daily 20 20/06/06 DIFLUCAN 100 MG ORAL TABLET 753348 FLUCONAZOLE Inactive REPHRESH PRO-B ORAL CAPSULE 1 tablet daily REPHRESH PRO-B ORAL CAPSULE LACTOBACILLUS Inactive RED YEAST RICE 600 MG ORAL CAPSULE 1 pill by mouth daily RED YEAST RICE 600 MG ORAL CAPSULE 042042 RED YEAST RICE EXTRACT In active SUDAFED [...] 20 19/02/09 DIFLUCAN 100 MG ORAL TABLET 385796 FLUCONAZOLE Inactive DIFLUCAN 100 MG ORAL TABLET 1 tablet by mouth daily 20 19/02/09 DIFLUCAN 100 MG ORAL TABLET 276264 FLUCONAZOLE Inactive VENLAFAXINE HCL 75 MG ORAL TABLET 1 am 1/2 at noon 201 07/07/09 VENLAFAXINE HCL 75 MG ORAL TABLET 772292 VENLAFAXINE HCL Inacti ve GABAPENTIN 300 MG ORAL CAPSULE 1 po daily GABAPENTIN 300 MG ORAL CAPSULE 347602 GABAPENTIN Inactive SUDAFED 12 HOUR 120 MG ORAL TABLET EXTENDED RELEASE 12 HOUR 1 pill twice daily if needed for congestion SUDAFED 12 HOUR 120 MG ORAL TABLET EXTENDED RELEASE 12 HOUR PSEUDOEPHEDRINE HCL Inactive AMITRIPTYLINE HCL 10 MG ORAL TABLET 1 tablet nightly by mout h for neuropathy AMITRIPTYLINE HCL 10 MG ORAL TABLET 606499 AMITRIPTYLINE HCL Inactive AMITRIPTYLINE HCL 50 MG ORAL TABLET 1 po q hs for sleep AMITRIPTYLINE HCL 50 MG ORAL TABLET 979888 AMITRIPTYLINE HCL Inac tive PREDNISONE 20 MG ORAL TABLET 1 tab twice daily for 3 d ay, then one daily for three days PREDNISONE 20 MG ORAL TABLET 176651 PREDNIS ONE Inactive ROPINIROLE HCL 0.25 MG ORAL TABLET 1 TAB PO Q HS 05/31 ROPINIROLE HCL 0.25 MG ORAL TABLET 959019 ROPINIROLE HCL Inact trent ROPINIROLE HCL 0.5 MG ORAL TABLET 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 ROPINIROLE HCL 0.5 MG ORAL TABLET 797934 ROPINIR OLE HCL Inactive BACTRIM DS 800-160 MG ORAL TABLET 1 tab by mouth twice daily 201 03/03/23 BACTRIM DS 800-160 MG ORAL TABLET 19830105 TRIMETHOPRIM-SULFAMETHOXAZOLE Inactive ZITHROMAX 250 MG ORAL TABLET 2 po today, then 1 po q days 2-5 20 15/02/10 ZITHROMAX 250 MG ORAL TABLET 368768 AZITHROMYCIN Mayela ctive BACTRIM DS 800-160 MG [...] a day AMOXICILLIN 500 MG ORAL CAPSULE 725222 AMOXICILLIN Inactive ZITHROMAX 250 MG ORAL TABLET 2 po today, then 1 po q days 2-5 20 20/04/28 ZITHROMAX 250 MG ORAL TABLET 775078 AZITHROMYCIN [place] ctive DIFLUCAN 100 MG ORAL TABLET 1 [...] -- NO DECISION MADE DURABLE POWER OF ADJUSTMENT SUPERVISOR FOR HEALTHCARE DISCUSED WITH PATIENT -- [...] Magnesium - Chemistry cholesterol, serum 196 mg/dL [phone]/07/30 triglyceride, serum, fasting 86 mg/dL 30-200 HDL cholesterol, serum 41 mg/dL 32-60 LDL cholesterol, serum 138 mg/dL 0-130 sodium, serum 140 mmol/L 888-940 5361/07/30 carbon dioxide, venous blood 28.6 mmol/L 21.0-32 [...] Negative mg/dL Negative sodium, serum 139 mmol/L 298-865 5450/11/07 carbon dioxide, venous blood 28.4 mmol/L 21.0-32 [...] ative Encounters Code Encounter Date Provider Facility CPT-13625 [id number] Vst-Est Level IV 14:08:03 C BRIDGET Sherman MD [facility] CPT-88837 Level 3 Est. Patient 18:06:36 CDT Tesfaye pearson MD [facility] CPT-09811 [id number] Vst-Est Level IV 17:09:34 C BRIDGET Sherman MD [facility] CPT-33656 Level 3 Est. Patient 17:27:08 CDT León hernandez APRN [facility]-20786 [id number] Vst-Est Level IV 14:00:[address] Tesfaye Sherman MD [facility] CPT-96890 [id number] Vst-Est Level IV 19:27:[address] Tesfaye Sherman MD [facility] CPT-29426 [id number] Vst-Est Level IV 10:41:41 C DT Tesfaye Sherman MD [facility] CPT-72963 [id number] Vst-Est Level III 09:40:56 CDT Tesfaye Sherman MD [facility] CPT-38601 Level 4 Est. Patient 22:18:12 CDT Tesfaye pearson MD [facility] CPT-84583 Level 4 Est. Patient 14:44:33 WEALTH MANAGEMENT CONSULTANT Tesfaye pearson MD [facility] CPT-24527 Level 4 Est. Patient 13:55:29 WEALTH MANAGEMENT CONSULTANT Tesfaye pearson MD [facility] CPT-91582 Level 4 Est. Patient 17:07:34 WEALTH MANAGEMENT CONSULTANT Tesfaye pearson MD [facility] CPT-99559 Level 4 Est. Patient 13:56:54 CDT Tesfaye pearson MD [facility] CPT-52306 Level 4 Est. Patient 13:24:25 CDT Chelsea sanz APRN [facility] CPT-00243 Level 4 Est. Patient 09:14:56 CDT Tesfaye pearson MD [facility] CPT-13351 Level 4 Est. Patient 18:40:25 WEALTH MANAGEMENT CONSULTANT Tesfaye pearson MD [facility] CPT-88247 Level 4 Est. Patient 18:13:07 WEALTH MANAGEMENT CONSULTANT Tesfaye pearson MD [facility] CPT-53499 Level 3 Est. Patient 10:46:32 CDT Rj cotto DO [facility] CPT-62856 Level 4 Est. Patient 20:19:25 CDT Tesfaye pearson MD [facility] CPT-29203 Level 3 Est. Patient 09:07:31 CDT Tesfaye pearson MD [facility] CPT-91138 Level 4 Est. Patient 13:12:56 CDT Tesfaye pearson MD [facility] CPT-69682 Level 4 Est. Patient 21:24:55 WEALTH MANAGEMENT CONSULTANT Tesfaye pearson MD [facility] CPT-21061 Level 3 Est. Patient 13:45:04 WEALTH MANAGEMENT CONSULTANT Tesfaye pearson MD [facility] CPT-76493 Level 4 Est. Patient 13:50:45 CDT Tesfaye pearson MD [facility] CPT-54048 Level 3 Est. Patient 10:16:10 CDT Tesfaye pearson MD [facility] CPT-21163 Level 3 Est. Patient 16:36:07 WEALTH MANAGEMENT CONSULTANT Kayla jameson MD [facility] CPT-70779 Level 4 Est. Patient 16:00:14 WEALTH MANAGEMENT CONSULTANT Tesfaye pearson MD [facility] CPT-52673 Level 4 Est. Patient 11:02:24 WEALTH MANAGEMENT CONSULTANT Tesfaye pearson MD [facility] CPT-24919 Level 3 Est. Patient 20:21:43 WEALTH MANAGEMENT CONSULTANT Kayla jameson MD [facility]-32495 Level 3 Est. Patient 13:27:28 WEALTH MANAGEMENT CONSULTANT Kayla jameson MD [facility]-82676 Level 4 Est. Patient 15:57:17 WEALTH MANAGEMENT CONSULTANT Tesfaye pearson MD [facility] CPT-88894 Level 3 New Patient 13:25:47 CDT Tesfaye kidd MD [facility] CPT-08944 Level 3 New Patient 17:22:21 CDT Kayla angel MD [facility] Procedures Code Procedure Name Date Entry Date Standard Desc ription CPT-11418 Venipuncture Draw Fee 16:12:22 CDT CPT-G0439 Subsequent Annual Wellness Exam 18:06:36 CDT CPT-G0439 Subsequent Annual Wellness Exam 22:18:11 CDT CPT-75862 Bone Density - XRAY USE ONLY 11:43:58 CDT 2 CPT-74960 Bone Density - XRAY USE ONLY 10:05:16 CDT 2 CPT-40480 Prv Med New Pt 40-64 yrs 18:19:25 CDT 2016 CPT-44926 Foot, right, comp min 3V - XRAY USE ONLY 10:38:34 CDT CPT-G0439 Subsequent Annual Wellness Exam 13:55:04 CDT CPT-G0438 Initial Annual Wellness Exam 11:23:17 CD T CPT-J2930 Solu Medrol 125 mg (Methyl Prednisolone Sodium Succinate) 17:29:12 WEALTH MANAGEMENT CONSULTANT CPT-75893 Abx/Therapy Injection 17:29:11 WEALTH MANAGEMENT CONSULTANT CPT-J2930 Solu Medrol 125 mg (Methyl Prednisolone Sodium Succinate) 12:34:38 WEALTH MANAGEMENT CONSULTANT CPT-J3420 Vitamin B12 1000mcg (Cyanocobalamin) 09:12:55 CDT CPT-J3420 Vitamin B12 1000mcg (Cyanocobalamin) 16:28:06 WEALTH MANAGEMENT CONSULTANT CPT-71853 Venipuncture Draw Fee 08:39:53 CDT CPT-J3420 Vitamin B12 1000mcg (Cyanocobalamin) 08:46:22 CDT CPT-60702 Abx/Therapy Injection 08:46:22 CDT CPT-J3420 Vitamin B12 1000mcg (Cyanocobalamin) 08:41:26 CDT CPT-17558 Abx/Therapy Injection 08:41:26 CDT CPT-J3420 Vitamin B12 1000mcg (Cyanocobalamin) 08:57:15 CDT CPT-98540 Abx/Therapy Injection 08:57:15 CDT CPT-J3420 Vitamin B12 1000mcg (Cyanocobalamin) 10:59:03 CDT CPT-51074 Abx/Therapy Injection 10:59:03 CDT CPT-J3420 Vitamin B12 1000mcg (Cyanocobalamin) 15:05:39 CDT CPT-18086 Abx/Therapy Injection 15:05:39 CDT CPT-J3420 Vitamin B12 1000mcg (Cyanocobalamin) 13:50:45 CDT CPT-J3420 Vitamin B12 1000mcg (Cyanocobalamin) 08:48:55 CDT CPT-20836 Abx/Therapy Injection 08:48:55 CDT CPT-J3420 Vitamin B12 1000mcg (Cyanocobalamin) 09:14:54 CDT CPT-18869 Abx/Therapy Injection 09:14:54 CDT CPT-J3420 Vitamin B12 1000mcg (Cyanocobalamin) 09:06:06 CDT CPT-23297 Abx/Therapy Injection 09:06:06 CDT CPT-J3420 Vitamin B12 1000mcg (Cyanocobalamin) 09:49:14 CDT CPT-30692 Abx/Therapy Injection 09:49:14 CDT CPT-J3420 Vitamin B12 1000mcg (Cyanocobalamin) 09:10:30 WEALTH MANAGEMENT CONSULTANT CPT-44922 Abx/Therapy Injection 09:10:30 WEALTH MANAGEMENT CONSULTANT CPT-J3420 Vitamin B12 1000mcg (Cyanocobalamin) 09:11:07 WEALTH MANAGEMENT CONSULTANT CPT-86174 Abx/Therapy Injection 09:11:07 WEALTH MANAGEMENT CONSULTANT CPT-J3420 Vitamin B12 1000mcg (Cyanocobalamin) 09:57:03 WEALTH MANAGEMENT CONSULTANT CPT-48743 Abx/Therapy Injection 09:57:03 WEALTH MANAGEMENT CONSULTANT CPT-J3420 Vitamin B12 1000mcg (Cyanocobalamin) 09:23:21 WEALTH MANAGEMENT CONSULTANT CPT-11249 Abx/Therapy Injection 09:23:21 WEALTH MANAGEMENT CONSULTANT CPT-60171 Urine Dip (Floor Use Only) 20:21:44 WEALTH MANAGEMENT CONSULTANT 201 02/12/11 CPT-45054 UA Dip Auto (Floor Use Only) 10:04:39 WEALTH MANAGEMENT CONSULTANT 2 CPT-92522 Urine Dip (Floor Use Only) 13:27:28 WEALTH MANAGEMENT CONSULTANT 201 02/12/01 CPT-17000 Bladder Scan 13:27:28 WEALTH MANAGEMENT CONSULTANT CPT-06162 Abd single AP View 14:30:51 WEALTH MANAGEMENT CONSULTANT CPT-OV Office Visit 10:15:43 CDT CPT- Urine Dip (Floor Use Only) 17:22:21 CDT 201 02/09/02 CPT-00444 Bladder Scan 17:22:21 CDT
--- OUTSIDE RECORDS SUMMARY | 2020-05-05 11:22 | XMS REPORT | Clinical Summary ---
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 [...] Sherman MD Routine general medical examination at [facility] acility Sinusitis 461.9 Resolved Tesfaye [...] MD Routine general medical examination at a [facility] acility Body Mass Index 21.0-21.9 Adult [...] Tesfaye Sherman MD Dysuria High risk meds halfway use V58.6 Active Tesfaye Sherman MD Long-term (current) drug use Yeast infection 112.9 Inactive Tesfaye Sherman MD Candidiasis of unspecified site Upper respiratory infection 465.9 Inactive Tesfaye Sherman MD Acute upper respiratory infections of un specified site Lower extremity edema, bilateral 782.3 Active 201 07/07/09 León Kodi RN NAVIGATOR Edema Peripheral neuropathy 356.9 Active Tesfaye lamb [...] for rest less leg syndrome. ROPINIROLE HCL 00738941737 No Longer Active MARCUS Panchal Active ROPINIROLE HCL 1 MG ORAL TABLET 1 tab po q hs R OPINIROLE HCL 36965330467 Active MARCUS Maravilla Active ROPINIROLE HCL 0.25 MG ORAL TABLET 1 TAB PO Q HS 05/31 ROPINIROLE HCL 72464884366 No Longer Active Tesfaye Sherman MD Ac tive PREDNISONE 20 MG ORAL TABLET 1 tab twice daily for 3 d ay, then one daily for three days PREDNISONE 73962407441 No Longer Active Tesfaye Sherman MD Active AMITRIPTYLINE HCL 50 MG ORAL TABLET 1 po q hs for sleep AMITRIPTYLINE HCL 43813823533 No Longer Active Tesfaye Sherman MD Active AMITRIPTYLINE HCL 10 MG ORAL TABLET 1 tablet nightly by mout h for neuropathy AMITRIPTYLINE HCL 64163360025 No Longer Active MARCUS Stapleton Active DIFLUCAN 100 MG ORAL TABLET 1 tablet by mouth daily 20 21/03/11 FLUCONAZOLE 14356425631 No Longer Active Tesfaye Sherman MD Acti ve BACTRIM DS 800-160 MG ORAL TABLET 1 tab by mouth twice daily 201 07/08/06 TRIMETHOPRIM-SULFAMETHOXAZOLE 44251705164 No Longer Active Umer Sherman MD Active CLARITIN 10 MG ORAL TABLET Take one by mouth daily LORATADINE 94496215286 Active Tesfaye Sherman MD Active SUDAFED 12 HOUR 120 MG ORAL TABLET EXTENDED RELEASE 12 HOUR 1 pill twice daily if needed for congestion PSEUDOEPHEDRINE HCL 936418127 13 No Longer Active Tesfaye Sherman MD Active FENOFIBRATE 145 MG ORAL TABLET 1 by mouth daily FENOFIBRATE 60189747498 Active Laurence Dominguez Active GABAPENTIN 300 MG ORAL CAPSULE 1 po daily GABAP ENTIN 55952745663 No Longer Active Tesfaye Sherman MD Active HYDROCHLOROTHIAZIDE 12.5 MG ORAL CAPSULE 1 pill by mough daily 2 HYDROCHLOROTHIAZIDE 22859005146 No Longer Active León Kodi RN NAVIGATOR Active VENLAFAXINE HCL 75 MG ORAL TABLET 1 am 1/ at noon 201 07/07/09 VENLAFAXINE HCL 57145369225 No Longer Active León Kodi RN NAVIGATOR Act trent DIFLUCAN 100 MG ORAL TABLET 1 tablet by mouth daily 20 19/02/09 FLUCONAZOLE 36545179553 No Longer Active León Kodi RN NAVIGATOR Active DIFLUCAN 100 MG ORAL TABLET 1 tablet by mouth daily 20 19/02/09 FLUCONAZOLE 01138608659 No Longer Active León Kodi RN NAVIGATOR Active OXYCODONE-ACETAMINOPHEN 5-325 MG ORAL TABLET Take one tablet by mouth every 6 hours 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 Use sparingly OXYCODONE-ACETAMINOPHEN 54046239155 Active Tesfaye villar MD Active CLONAZEPAM 0.5 MG ORAL TABLET Take 1/2 qam, and 1/2 qpm CLONAZEPAM 76883730628 Active Tesfaye Sherman MD Active PRELIEF 340 (65-50) MG (CA-P) ORAL TABLET CALCIUM GLYCEROPHOSPHATE 03036580985 No Longer Active Tesfaye Sherman MD Active SUDAFED 24 HOUR 240 MG ORAL TABLET EXTENDED RELEASE 24 HOUR 1 tab po daily PSEUDOEPHEDRINE HCL 64579296296 No Longer Active Raul Sherman MD Active RED YEAST RICE 600 MG ORAL CAPSULE 1 pill by mouth daily RED YEAST RICE EXTRACT 42667357570 No Longer Active Tesfaye Sherman MD Active REPHRESH PRO-B ORAL CAPSULE 1 tablet daily LACT OBACILLUS 77958178276 No Longer Active Tesfaye Sherman MD Active ABILIFY 2 MG ORAL TABLET 1 by mouth daily. MARIA ELENA PIPRAZOLE 95443526921 Active Tesfaye Sherman MD Active CYMBALTA 60 MG ORAL CAPSULE DELAYED RELEASE PARTICLES 1 cap by mouth daily for pain DULOXETINE HCL 82511641469 Active MARCUS Lindsay Active DIFLUCAN 100 MG ORAL TABLET 1 tablet by mouth daily 20 20/06/06 FLUCONAZOLE 18765102118 No Longer Active Tesfyae Sherman MD Acti ve PREDNISONE 20 MG ORAL TABLET 1 tablet by mouth twice d aily for 3 days, then 1 tablet daily for 3 days PREDNISONE 48100240481 No L onger Active Tesfaye Sherman MD Active BACTRIM DS 800-160 MG ORAL TABLET 1 tab by mouth twice daily 201 06/09/02 TRIMETHOPRIM-SULFAMETHOXAZOLE 77396600711 No Longer Active Fer Dominguez Active DIFLUCAN 100 MG ORAL TABLET 1 tablet by mouth daily 20 20/05/01 FLUCONAZOLE 90202567069 No Longer Active Tesfaye Sherman MD Acti ve ZITHROMAX 250 MG ORAL TABLET 2 po today, then 1 po q days 2-5 20 20/04/28 AZITHROMYCIN 16414199935 No Longer Active Tesfaye Sherman MD Active MECLIZINE HCL 25 MG ORAL TABLET one tab po qday prn dizziness 20 17/09/06 MECLIZINE HCL 30723371392 No Longer Active Tesfaye Sherman MD Active PROAIR HFA 108 (90 BASE) MCG/ACT INHALATION AEROSOL SO LUTION 1 puff every 6 hours as needed ALBUTEROL SULFATE 54243520107 No Long er Active Tesfaye Sherman MD Active PREDNISONE 20 MG ORAL TABLET 1 tab twice daily for 3 d ay, then one daily for three days PREDNISONE 46786248589 No Longer Active Tesfaye Sherman MD Active MECLIZINE HCL 25 MG ORAL TABLET one 4 times a day as needed for dizziness MECLIZINE HCL 67153926997 Active Tesfaye Sherman MD Active AMOXICILLIN 500 MG ORAL CAPSULE 1 cap by mouth three times a day AMOXICILLIN 49988216648 No Longer Active Laurence Raida Acti ve DIFLUCAN 100 MG ORAL TABLET 1 tablet by mouth daily 20 19/08/26 FLUCONAZOLE 12146765256 No Longer Active Tesfaye Sherman MD Acti ve BACTRIM DS 800-160 MG ORAL TABLET 1 tab by mouth twice daily 201 05/10/28 TRIMETHOPRIM-SULFAMETHOXAZOLE 34002901522 No Longer Active Fer mastersa Angelica Active FOSAMAX 70 MG ORAL TABLET 1 po qweek. Take 30min prio r to first food/drink. Avoid lying down x 1 hour. ALENDRONATE SODIUM 50026839 144 No Longer Active Laurence Dominguez Active CYMBALTA 60 MG ORAL CAPSULE DELAYED RELEASE PARTICLES Take 1 tablet by mouth daily DULOXETINE HCL 12781321796 No Longer Active Edith Burch MD Active CYMBALTA 30 MG ORAL CAPSULE DELAYED RELEASE PARTICLES 1 cap by mouth daily with 60mg DULOXETINE HCL 07383347161 No Longer Active Jordan Burch MD Active FISH OIL 1000 MG ORAL CAPSULE DELAYED RELEASE 1 pill b y mouth daily for cholesterol OMEGA-3 FATTY ACIDS 22704962565 Active Cee Jaffe LPN Active DIFLUCAN 100 MG ORAL TABLET 1 tablet by mouth daily 20 19/03/05 FLUCONAZOLE 53362630975 No Longer Active Tesfaye Sherman MD Acti ve BACTRIM DS 800-160 MG ORAL TABLET 1 tab by mouth twice daily 201 05/06/28 TRIMETHOPRIM-SULFAMETHOXAZOLE 18951084117 No Longer Active Umer Sherman MD Active BACTRIM DS 800-160 MG ORAL TABLET 1 tab by mouth twice daily 201 05/04/15 TRIMETHOPRIM-SULFAMETHOXAZOLE 80225852110 No Longer Active Umer Sherman MD Active DIFLUCAN 150 MG ORAL TABLET 1 tablet by mouth daily 20 18/09/20 FLUCONAZOLE 01442077186 No Longer Active Tesfaye Sherman MD Acti ve BACTRIM DS 800-160 MG ORAL TABLET 1 tab by mouth twice daily 201 04/13/17 TRIMETHOPRIM-SULFAMETHOXAZOLE 21769379198 No Longer Active Umer Sherman MD Active CEFTIN 250 MG ORAL TABLET 1 tablet twice daily x 7 days CEFUROXIME AXETIL 14901889798 No Longer Active Tesfaye Sherman MD Active DIFLUCAN 100 MG ORAL TABLET 1 tablet by mouth every other da y for 2 doses FLUCONAZOLE 86446635508 No Longer Active Tesfaye barron MD Active DIFLUCAN 100 MG ORAL TABLET 1 tablet by mouth daily X 3 DAYS 201 04/09/01 FLUCONAZOLE 39863783329 No Longer Active Rj Lyons tive MIRTAZAPINE 15 MG ORAL TABLET 1/2 tab by mouth at bedtime. 03/13 MIRTAZAPINE 75652182330 No Longer Active Tesfyae Sherman MD Active BACTRIM DS 800-160 MG ORAL TABLET 1 tab by mouth twice daily 201 04/09/01 TRIMETHOPRIM-SULFAMETHOXAZOLE 41348819085 No Longer Active Umer Sherman MD Active PRAMIPEXOLE DIHYDROCHLORIDE 0.125 MG ORAL TABLET take 1 tablet po qhs for restless leg syndrome. PRAMIPEXOLE DIHYDROCHLORI DE 08003735084 No Longer Active Tesfaye Sherman MD Active MAGNESIUM 400 MG ORAL TABLET 1 tab po daily MAGNE SIUM 20197714868 Active Chelsea Cardenas APRN Active CETIRIZINE HCL 5 MG ORAL TABLET Take 1 tablet by mouth daily CETIRIZINE HCL 60798518698 No Longer Active Chelsea Cardenas APRN Activ e TRIMETHOPRIM 100 MG ORAL TABLET 1/2 qd TRIM ETHOPRIM 61322870648 No Longer Active Chelsea Cardenas APRN Active BACTRIM DS 800-160 MG ORAL TABLET 1 tab by mouth twice daily 201 04/04/11 TRIMETHOPRIM-SULFAMETHOXAZOLE 97350425301 No Longer Active Umer Sherman MD Active BACTRIM DS 800-160 MG ORAL TABLET 1 tab by mouth twice daily X 10 DAYS TRIMETHOPRIM-SULFAMETHOXAZOLE 63991014299 No Longer Active Tesfaye Sherman MD Active AMOXICILLIN 500 MG ORAL CAPSULE 1 cap by mouth three times a day AMOXICILLIN 78724703208 No Longer Active Adriana Arredondo, A A ctive B-12 1000 MCG ORAL LOZENGE 1 tab po daily CYANO COBALAMIN 76311584498 Active Tesfaye Sherman MD Active VITAMIN D3 2000 UNIT ORAL TABLET 1 daily, for vitamin D deficien cy CHOLECALCIFEROL 64977911993 No Longer Active Tesfaye Sherman MD Active TIZANIDINE HCL 2 MG ORAL TABLET take 1-2 tablet by [facility] every day at bedtime at 9pm PRN TIZANIDINE HCL 66567478006 Active Tesfaye hewitt MD Active ZITHROMAX 250 MG ORAL TABLET 2 po today, then 1 po q days 2-5 20 15/02/10 AZITHROMYCIN 51228265730 No Longer Active Tesfaye Sherman MD Active BACTRIM DS 800-160 MG ORAL TABLET 1 tab by mouth twice daily 201 03/03/23 TRIMETHOPRIM-SULFAMETHOXAZOLE 05603817429 No Longer Active Umer Sherman MD Active [facility] NIACIN FLUSH FREE 400-100 MG ORAL CAPSULE 1 daily NIACIN-INOSITOL 12842062021 Active Kayla Cooper MD Activ e DIFLUCAN 150 MG ORAL TABLET 1 qd FLUCONAZOL E 03136998071 No Longer Active Kayla Cooper MD Active FLUTICASONE PROPIONATE 50 MCG/ACT NASAL SUSPENSION 1 spray each nostril twice daily FLUTICASONE PROPIONATE 62720037444 Active Umer Sherman MD Active LOVASTATIN 20 MG ORAL TABLET Take 1 tablet by mouth daily LOVASTATIN 39987901724 No Longer Active Tesfaye Sherman MD Acti ve MELOXICAM 7.5 MG ORAL TABLET 1 tablet by mouth daily 2 MELOXICAM 53134045558 No Longer Active Tesfaye Sherman MD Acti ve GABAPENTIN 300 MG ORAL CAPSULE Take two tablets by mouth every e vening GABAPENTIN 43407169361 No Longer Active Edith Burch MD A ctive BACLOFEN 10 MG ORAL TABLET Take one tablet by mouth three times a d ay BACLOFEN 53428964025 Active Kayla Cooper MD Active GABAPENTIN 300 MG ORAL CAPSULE Take two tablets by mouth every e vening GABAPENTIN 300 MG ORAL CAPSULE 809804 GABAPENTIN I nactive MELOXICAM 7.5 MG ORAL TABLET 1 tablet by mouth daily 2 MELOXICAM 7.5 MG ORAL TABLET 775469 MELOXICAM Inactive LOVASTATIN 20 MG ORAL TABLET Take 1 tablet by mouth daily LOVASTATIN 20 MG ORAL TABLET 708869 LOVASTATIN Inactive DIFLUCAN 150 MG ORAL TABLET 1 qd DIFLUCAN 150 MG ORAL TABLET 457355 FLUCONAZOLE Inactive VITAMIN D3 2000 UNIT ORAL TABLET 1 daily, for vitamin D deficien cy VITAMIN D3 2000 UNIT ORAL TABLET CHOLECALCIFEROL Inactive AMOXICILLIN 500 MG ORAL CAPSULE 1 cap by mouth three times a day AMOXICILLIN 500 MG ORAL CAPSULE 643068 AMOXICILLIN Inactive BACTRIM DS 800-160 MG ORAL TABLET 1 tab by mouth twice daily X 10 DAYS BACTRIM DS 800-160 MG ORAL TABLET 253991 TRIMETHOPRIM-SULFAMETHOXAZOLE Inactive TRIMETHOPRIM 100 MG ORAL TABLET 1/2 qd 7 TRIMETHOPRIM 100 MG ORAL TABLET 254122 TRIMETHOPRIM Inactive CETIRIZINE HCL 5 MG ORAL TABLET Take 1 tablet by mouth daily CETIRIZINE HCL 5 MG ORAL TABLET 7608947 CETIRIZINE HCL Inactive PRAMIPEXOLE DIHYDROCHLORIDE 0.125 MG ORAL TABLET take 1 tablet po qhs for restless leg syndrome. PRAMIPEXOLE DIHYD ROCHLORIDE 0.125 MG ORAL TABLET 183987 PRAMIPEXOLE DIHYDROCHLORIDE Inactive MIRTAZAPINE 15 MG ORAL TABLET 1/2 tab by mouth at bedtime. 03/13 MIRTAZAPINE 15 MG ORAL TABLET 692320 MIRTAZAPINE In active DIFLUCAN 100 MG ORAL TABLET 1 tablet by mouth daily X 3 DAYS 201 04/09/01 DIFLUCAN 100 MG ORAL TABLET 617628 FLUCONAZOLE Inac tive DIFLUCAN 100 MG ORAL [...] 30 MG ORAL CAPSULE DELAYED RELEASE PARTICLES 171135 DULOXETINE HCL Inactive CYMBALTA 60 MG ORAL CAPSULE DELAYED RELEASE PARTICLES Take 1 tablet by mouth daily CYMBALTA 60 MG ORAL CAPSULE DELAYED RELEA SE PARTICLES 675944 DULOXETINE HCL Inactive FOSAMAX 70 MG ORAL TABLET 1 po qweek. Take 30min prio r to first food/drink. Avoid lying down x 1 hour. FOSAMAX 70 MG ORAL TA BLET 493035 ALENDRONATE SODIUM Inactive DIFLUCAN 100 MG ORAL TABLET 1 tablet by mouth daily 20 19/08/26 DIFLUCAN 100 MG ORAL TABLET 984694 FLUCONAZOLE Inactive PREDNISONE 20 MG ORAL TABLET 1 tab twice daily for 3 d ay, then one daily for three days PREDNISONE 20 MG ORAL TABLET 461120 PREDNIS ONE Inactive PROAIR HFA 108 (90 BASE) MCG/ACT INHALATION AEROSOL SO LUTION 1 puff every 6 hours as needed PROAIR HFA 108 (90 B ASE) MCG/ACT INHALATION AEROSOL SOLUTION ALBUTEROL SULFATE Inactive MECLIZINE HCL 25 MG ORAL TABLET one tab po qday prn dizziness 20 17/09/06 MECLIZINE HCL 25 MG ORAL TABLET 119336 MECLIZINE HCL Inactive PREDNISONE 20 MG ORAL TABLET 1 tablet by mouth twice d aily for 3 days, then 1 tablet daily for 3 days PREDNISONE 20 MG ORAL TA BLET 117935 PREDNISONE Inactive DIFLUCAN 100 MG ORAL TABLET 1 tablet by mouth daily 20 20/06/06 DIFLUCAN 100 MG ORAL TABLET 953553 FLUCONAZOLE Inactive REPHRESH PRO-B ORAL CAPSULE 1 tablet daily REPHRESH PRO-B ORAL CAPSULE LACTOBACILLUS Inactive RED YEAST RICE 600 MG ORAL CAPSULE 1 pill by mouth daily RED YEAST RICE 600 MG ORAL CAPSULE 640639 RED YEAST RICE EXTRACT In active SUDAFED [...] 20 19/02/09 DIFLUCAN 100 MG ORAL TABLET 299330 FLUCONAZOLE Inactive DIFLUCAN 100 MG ORAL TABLET 1 tablet by mouth daily 20 19/02/09 DIFLUCAN 100 MG ORAL TABLET 172363 FLUCONAZOLE Inactive VENLAFAXINE HCL 75 MG ORAL TABLET 1 am 1/2 at noon 201 07/07/09 VENLAFAXINE HCL 75 MG ORAL TABLET 655410 VENLAFAXINE HCL Inacti ve GABAPENTIN 300 MG ORAL CAPSULE 1 po daily GABAPENTIN 300 MG ORAL CAPSULE 894993 GABAPENTIN Inactive SUDAFED 12 HOUR 120 MG ORAL TABLET EXTENDED RELEASE 12 HOUR 1 pill twice daily if needed for congestion SUDAFED 12 HOUR 120 MG ORAL TABLET EXTENDED RELEASE 12 HOUR PSEUDOEPHEDRINE HCL Inactive AMITRIPTYLINE HCL 10 MG ORAL TABLET 1 tablet nightly by mout h for neuropathy AMITRIPTYLINE HCL 10 MG ORAL TABLET 448659 AMITRIPTYLINE HCL Inactive AMITRIPTYLINE HCL 50 MG ORAL TABLET 1 po q hs for sleep AMITRIPTYLINE HCL 50 MG ORAL TABLET 850048 AMITRIPTYLINE HCL Inac tive PREDNISONE 20 MG ORAL TABLET 1 tab twice daily for 3 d ay, then one daily for three days PREDNISONE 20 MG ORAL TABLET 463675 PREDNIS ONE Inactive ROPINIROLE HCL 0.25 MG ORAL TABLET 1 TAB PO Q HS 05/31 ROPINIROLE HCL 0.25 MG ORAL TABLET 304795 ROPINIROLE HCL Inact trent ROPINIROLE HCL 0.5 MG ORAL TABLET 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 ROPINIROLE HCL 0.5 MG ORAL TABLET 994358 ROPINIR OLE HCL Inactive BACTRIM DS 800-160 MG ORAL TABLET 1 tab by mouth twice daily 201 03/03/23 BACTRIM DS 800-160 MG ORAL TABLET 19830105 TRIMETHOPRIM-SULFAMETHOXAZOLE Inactive ZITHROMAX 250 MG ORAL TABLET 2 po today, then 1 po q days 2-5 20 15/02/10 ZITHROMAX 250 MG ORAL TABLET 485221 AZITHROMYCIN Mayela ctive BACTRIM DS 800-160 MG [...] a day AMOXICILLIN 500 MG ORAL CAPSULE 593554 AMOXICILLIN Inactive ZITHROMAX 250 MG ORAL TABLET 2 po today, then 1 po q days 2-5 20 20/04/28 ZITHROMAX 250 MG ORAL TABLET 515854 AZITHROMYCIN [place] ctive DIFLUCAN 100 MG ORAL TABLET 1 [...] -- NO DECISION MADE DURABLE POWER OF ENGINEER STEAM FOR HEALTHCARE DISCUSED WITH PATIENT -- FULL [...] Magnesium - Chemistry cholesterol, serum 196 mg/dL 982-865 9965/07/30 triglyceride, serum, fasting 86 mg/dL 30-200 HDL cholesterol, serum 41 mg/dL 32-60 LDL cholesterol, serum 138 mg/dL 0-130 sodium, serum 140 mmol/L 889-847 6292/07/30 carbon dioxide, venous blood 28.6 mmol/L 21.0-32 [...] Negative mg/dL Negative sodium, serum 139 mmol/L 091-956 5479/11/07 carbon dioxide, venous blood 28.4 mmol/L 21.0-32 [...] ative Encounters Code Encounter Date Provider Facility CPT-95230 [id number] Vst-Est Level IV 14:08:03 C BRIDGET Sherman MD [facility] CPT-22035 Level 3 Est. Patient 18:06:36 CDT Tesfaye pearson MD [facility] CPT-30831 [id number] Vst-Est Level IV 17:09:34 C BRIDGET Sherman MD [facility] CPT-55820 Level 3 Est. Patient 17:27:08 CDT León hernandez APRN [facility]-55770 05683-Pfv Vst-Est Level IV 14:00:[address] Tesfaye Sherman MD [facility] CPT-42260 24014-Tps Vst-Est Level IV 19:27:[address] Tesfaye Sherman MD [facility] CPT-68895 36230-Wvm Vst-Est Level IV 10:41:41 C DT Tesfaye Sherman MD [facility] CPT-85495 66731-Aoa Vst-Est Level III 09:40:56 CDT Tesfaye Sherman MD [facility] CPT-78769 Level 4 Est. Patient 22:18:12 CDT Tesfaye pearson MD [facility] CPT-69242 Level 4 Est. Patient 14:44:33 HARP REPAIRER Tesfaye pearson MD [facility] CPT-28643 Level 4 Est. Patient 13:55:29 HARP REPAIRER Tesfaye pearson MD [facility] CPT-81967 Level 4 Est. Patient 17:07:34 HARP REPAIRER Tesfaye pearson MD [facility] CPT-87203 Level 4 Est. Patient 13:56:54 CDT Tesfaye pearson MD [facility] CPT-83733 Level 4 Est. Patient 13:24:25 CDT Chelsea sanz APRN [facility] CPT-21714 Level 4 Est. Patient 09:14:56 CDT Tesfaye pearson MD [facility] CPT-73053 Level 4 Est. Patient 18:40:25 HARP REPAIRER Tesfaye pearson MD [facility] CPT-69157 Level 4 Est. Patient 18:13:07 HARP REPAIRER Tesfaye pearson MD [facility] CPT-19939 Level 3 Est. Patient 10:46:32 CDT Rj cotto DO [facility] CPT-55055 Level 4 Est. Patient 20:19:25 CDT Tesfaye pearson MD [facility] CPT-40584 Level 3 Est. Patient 09:07:31 CDT Tesfaye pearson MD [facility] CPT-77903 Level 4 Est. Patient 13:12:56 CDT Tesfaye pearson MD [facility] CPT-87921 Level 4 Est. Patient 21:24:55 HARP REPAIRER Tesfaye pearson MD [facility] CPT-48136 Level 3 Est. Patient 13:45:04 HARP REPAIRER Tesfaye pearson MD [facility] CPT-43547 Level 4 Est. Patient 13:50:45 CDT Tesfaye pearson MD [facility] CPT-33669 Level 3 Est. Patient 10:16:10 CDT Tesfaye pearson MD [facility] CPT-66350 Level 3 Est. Patient 16:36:07 HARP REPAIRER Kayla jameson MD [facility] CPT-93980 Level 4 Est. Patient 16:00:14 HARP REPAIRER Tesfaye pearson MD [facility] CPT-81661 Level 4 Est. Patient 11:02:24 HARP REPAIRER Tesfaye pearson MD [facility] CPT-28139 Level 3 Est. Patient 20:21:43 HARP REPAIRER Kayla jameson MD [facility]-42626 Level 3 Est. Patient 13:27:28 HARP REPAIRER Kayla jameson MD [facility]-97107 Level 4 Est. Patient 15:57:17 HARP REPAIRER Tesfaye pearson MD [facility] CPT-26250 Level 3 New Patient 13:25:47 CDT Tesfaye kidd MD [facility] CPT-78120 Level 3 New Patient 17:22:21 CDT Kayla angel MD [facility] Procedures Code Procedure Name Date Entry Date Standard Desc ription CPT-46540 Venipuncture Draw Fee 16:12:22 CDT CPT-G0439 Subsequent Annual Wellness Exam 18:06:36 CDT CPT-G0439 Subsequent Annual Wellness Exam 22:18:11 CDT CPT-28053 Bone Density - XRAY USE ONLY 11:43:58 CDT 2 CPT-04885 Bone Density - XRAY USE ONLY 10:05:16 CDT 2 CPT-53980 Prv Med New Pt 40-64 yrs 18:19:25 CDT 2016 CPT-23168 Foot, right, comp min 3V - XRAY USE ONLY 10:38:34 CDT CPT-G0439 Subsequent Annual Wellness Exam 13:55:04 CDT CPT-G0438 Initial Annual Wellness Exam 11:23:17 CD T CPT-J2930 Solu Medrol 125 mg (Methyl Prednisolone Sodium Succinate) 17:29:12 HARP REPAIRER CPT-87963 Abx/Therapy Injection 17:29:11 HARP REPAIRER CPT-J2930 Solu Medrol 125 mg (Methyl Prednisolone Sodium Succinate) 12:34:38 HARP REPAIRER CPT-J3420 Vitamin B12 1000mcg (Cyanocobalamin) 09:12:55 CDT CPT-J3420 Vitamin B12 1000mcg (Cyanocobalamin) 16:28:06 HARP REPAIRER CPT-23653 Venipuncture Draw Fee 08:39:53 CDT CPT-J3420 Vitamin B12 1000mcg (Cyanocobalamin) 08:46:22 CDT CPT-79158 Abx/Therapy Injection 08:46:22 CDT CPT-J3420 Vitamin B12 1000mcg (Cyanocobalamin) 08:41:26 CDT CPT-18467 Abx/Therapy Injection 08:41:26 CDT CPT-J3420 Vitamin B12 1000mcg (Cyanocobalamin) 08:57:15 CDT CPT-18826 Abx/Therapy Injection 08:57:15 CDT CPT-J3420 Vitamin B12 1000mcg (Cyanocobalamin) 10:59:03 CDT CPT-70955 Abx/Therapy Injection 10:59:03 CDT CPT-J3420 Vitamin B12 1000mcg (Cyanocobalamin) 15:05:39 CDT CPT-83999 Abx/Therapy Injection 15:05:39 CDT CPT-J3420 Vitamin B12 1000mcg (Cyanocobalamin) 13:50:45 CDT CPT-J3420 Vitamin B12 1000mcg (Cyanocobalamin) 08:48:55 CDT CPT-38008 Abx/Therapy Injection 08:48:55 CDT CPT-J3420 Vitamin B12 1000mcg (Cyanocobalamin) 09:14:54 CDT CPT-54333 Abx/Therapy Injection 09:14:54 CDT CPT-J3420 Vitamin B12 1000mcg (Cyanocobalamin) 09:06:06 CDT CPT-20122 Abx/Therapy Injection 09:06:06 CDT CPT-J3420 Vitamin B12 1000mcg (Cyanocobalamin) 09:49:14 CDT CPT-16175 Abx/Therapy Injection 09:49:14 CDT CPT-J3420 Vitamin B12 1000mcg (Cyanocobalamin) 09:10:30 HARP REPAIRER CPT-89625 Abx/Therapy Injection 09:10:30 HARP REPAIRER CPT-J3420 Vitamin B12 1000mcg (Cyanocobalamin) 09:11:07 HARP REPAIRER CPT-78506 Abx/Therapy Injection 09:11:07 HARP REPAIRER CPT-J3420 Vitamin B12 1000mcg (Cyanocobalamin) 09:57:03 HARP REPAIRER CPT-95557 Abx/Therapy Injection 09:57:03 HARP REPAIRER CPT-J3420 Vitamin B12 1000mcg (Cyanocobalamin) 09:23:21 HARP REPAIRER CPT-42038 Abx/Therapy Injection 09:23:21 HARP REPAIRER CPT-89693 Urine Dip (Floor Use Only) 20:21:44 HARP REPAIRER 201 02/12/11 CPT-73207 UA Dip Auto (Floor Use Only) 10:04:39 HARP REPAIRER 2 CPT-31965 Urine Dip (Floor Use Only) 13:27:28 HARP REPAIRER 201 02/12/01 CPT-08777 Bladder Scan 13:27:28 HARP REPAIRER CPT-09529 Abd single AP View 14:30:51 HARP REPAIRER CPT-OV Office Visit 10:15:43 CDT CPT-45233 Urine Dip (Floor Use Only) 17:22:21 CDT 201 02/09/02 CPT-83801 Bladder Scan 17:22:21 CDT
--- OUTSIDE RECORDS SUMMARY | 2020-05-05 11:22 | XMS REPORT | Clinical Summary ---
Author Author Talon, Jeri Wood Organization [employer] Address Unknown Phone Unavailable Allergies, Adverse Reactions, [...] Sherman MD Routine general medical examination at [facility] acility Sinusitis 461.9 Resolved Tesfaye [...] MD Routine general medical examination at a [facility] acility Body Mass Index 21.0-21.9 [...] Tesfaye Sherman MD Dysuria High risk meds intermediate use V58.6 Active Tesfaye Sherman MD Long-term (current) drug use Yeast infection 112.9 Inactive Tesfaye Sherman MD Candidiasis of unspecified site Upper respiratory infection 465.9 Inactive Tesfaye Sherman MD Acute upper respiratory infections of un specified site Lower extremity edema, bilateral 782.3 Active 201 07/07/09 León Kodi USABILITY ARCHITECT Edema Peripheral neuropathy 356.9 Active Tesfaye lamb [...] for rest less leg syndrome. ROPINIROLE HCL 63608368308 No Longer Active MARCUS Panchal Active ROPINIROLE HCL 1 MG ORAL TABLET 1 tab po q hs R OPINIROLE HCL 20673907797 Active MARCUS Maravilla Active ROPINIROLE HCL 0.25 MG ORAL TABLET 1 TAB PO Q HS 05/31 ROPINIROLE HCL 43483977729 No Longer Active Tesfaye Sherman MD Ac tive PREDNISONE 20 MG ORAL TABLET 1 tab twice daily for 3 d ay, then one daily for three days PREDNISONE 85013747021 No Longer Active Tesfaye Sherman MD Active AMITRIPTYLINE HCL 50 MG ORAL TABLET 1 po q hs for sleep AMITRIPTYLINE HCL 19858939311 No Longer Active Tesfaye Sherman MD Active AMITRIPTYLINE HCL 10 MG ORAL TABLET 1 tablet nightly by mout h for neuropathy AMITRIPTYLINE HCL 78767849080 No Longer Active MARCUS Stapleton Active DIFLUCAN 100 MG ORAL TABLET 1 tablet by mouth daily 20 21/03/11 FLUCONAZOLE 06079041125 No Longer Active Tesfaye Sherman MD Acti ve BACTRIM DS 800-160 MG ORAL TABLET 1 tab by mouth twice daily 201 07/08/06 TRIMETHOPRIM-SULFAMETHOXAZOLE 29415957910 No Longer Active Umer Sherman MD Active CLARITIN 10 MG ORAL TABLET Take one by mouth daily LORATADINE 78002679118 Active Tesfaye Sherman MD Active SUDAFED 12 HOUR 120 MG ORAL TABLET EXTENDED RELEASE 12 HOUR 1 pill twice daily if needed for congestion PSEUDOEPHEDRINE HCL 664367090 13 No Longer Active Tesfaye Sherman MD Active FENOFIBRATE 145 MG ORAL TABLET 1 by mouth daily FENOFIBRATE 42971851473 Active Laurence Dominguez Active GABAPENTIN 300 MG ORAL CAPSULE 1 po daily GABAP ENTIN 91350209935 No Longer Active Tesfaye Sherman MD Active HYDROCHLOROTHIAZIDE 12.5 MG ORAL CAPSULE 1 pill by mough daily 2 HYDROCHLOROTHIAZIDE 59552672186 No Longer Active León Kodi USABILITY ARCHITECT Active VENLAFAXINE HCL 75 MG ORAL TABLET 1 am 1/ at noon 201 07/07/09 VENLAFAXINE HCL 92851500992 No Longer Active León Kodi USABILITY ARCHITECT Act trent DIFLUCAN 100 MG ORAL TABLET 1 tablet by mouth daily 20 19/02/09 FLUCONAZOLE 59105407977 No Longer Active León Kodi USABILITY ARCHITECT Active DIFLUCAN 100 MG ORAL TABLET 1 tablet by mouth daily 20 19/02/09 FLUCONAZOLE 13924276042 No Longer Active León Kodi USABILITY ARCHITECT Active OXYCODONE-ACETAMINOPHEN 5-325 MG ORAL TABLET Take one tablet by mouth every 6 hours 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 Use sparingly OXYCODONE-ACETAMINOPHEN 13282384466 Active Tesfaye villar MD Active CLONAZEPAM 0.5 MG ORAL TABLET Take 1/2 qam, and 1/2 qpm CLONAZEPAM 28907038524 Active Tesfaye Sherman MD Active PRELIEF 340 (65-50) MG (CA-P) ORAL TABLET CALCIUM GLYCEROPHOSPHATE 87627222601 No Longer Active Tesfaye Sherman MD Active SUDAFED 24 HOUR 240 MG ORAL TABLET EXTENDED RELEASE 24 HOUR 1 tab po daily PSEUDOEPHEDRINE HCL 29718389590 No Longer Active Raul Sherman MD Active RED YEAST RICE 600 MG ORAL CAPSULE 1 pill by mouth daily RED YEAST RICE EXTRACT 22818404635 No Longer Active Tesfaye Sherman MD Active REPHRESH PRO-B ORAL CAPSULE 1 tablet daily LACT OBACILLUS 22260584300 No Longer Active Tesfaye Sherman MD Active ABILIFY 2 MG ORAL TABLET 1 by mouth daily. MARIA ELENA PIPRAZOLE 34173212301 Active Tesfaye Sherman MD Active CYMBALTA 60 MG ORAL CAPSULE DELAYED RELEASE PARTICLES 1 cap by mouth daily for pain DULOXETINE HCL 77389612615 Active MARCUS Lindsay Active DIFLUCAN 100 MG ORAL TABLET 1 tablet by mouth daily 20 20/06/06 FLUCONAZOLE 22222441872 No Longer Active Tesfaye Sherman MD Acti ve PREDNISONE 20 MG ORAL TABLET 1 tablet by mouth twice d aily for 3 days, then 1 tablet daily for 3 days PREDNISONE 78547380095 No L onger Active Tesfaye Sherman MD Active BACTRIM DS 800-160 MG ORAL TABLET 1 tab by mouth twice daily 201 06/09/02 TRIMETHOPRIM-SULFAMETHOXAZOLE 51876990956 No Longer Active Fer Dominguez Active DIFLUCAN 100 MG ORAL TABLET 1 tablet by mouth daily 20 20/05/01 FLUCONAZOLE 92857739828 No Longer Active Tesfaye Sherman MD Acti ve ZITHROMAX 250 MG ORAL TABLET 2 po today, then 1 po q days 2-5 20 20/04/28 AZITHROMYCIN 04855824766 No Longer Active Tesfaye Sherman MD Active MECLIZINE HCL 25 MG ORAL TABLET one tab po qday prn dizziness 20 17/09/06 MECLIZINE HCL 53590650496 No Longer Active Tesfaye Sherman MD Active PROAIR HFA 108 (90 BASE) MCG/ACT INHALATION AEROSOL SO LUTION 1 puff every 6 hours as needed ALBUTEROL SULFATE 14934634423 No Long er Active Tesfaye Sherman MD Active PREDNISONE 20 MG ORAL TABLET 1 tab twice daily for 3 d ay, then one daily for three days PREDNISONE 35902947430 No Longer Active Tesfaye Sherman MD Active MECLIZINE HCL 25 MG ORAL TABLET one 4 times a day as needed for dizziness MECLIZINE HCL 09321562407 Active Tesfaye Sherman MD Active AMOXICILLIN 500 MG ORAL CAPSULE 1 cap by mouth three times a day AMOXICILLIN 09601675838 No Longer Active Laurence Raida Acti ve DIFLUCAN 100 MG ORAL TABLET 1 tablet by mouth daily 20 19/08/26 FLUCONAZOLE 89052374338 No Longer Active Tesfaye Sherman MD Acti ve BACTRIM DS 800-160 MG ORAL TABLET 1 tab by mouth twice daily 201 05/10/28 TRIMETHOPRIM-SULFAMETHOXAZOLE 77082009966 No Longer Active Fer mastersa Angelica Active FOSAMAX 70 MG ORAL TABLET 1 po qweek. Take 30min prio r to first food/drink. Avoid lying down x 1 hour. ALENDRONATE SODIUM 11523267 144 No Longer Active Laurence Dominguez Active CYMBALTA 60 MG ORAL CAPSULE DELAYED RELEASE PARTICLES Take 1 tablet by mouth daily DULOXETINE HCL 15845714470 No Longer Active Edith Burch MD Active CYMBALTA 30 MG ORAL CAPSULE DELAYED RELEASE PARTICLES 1 cap by mouth daily with 60mg DULOXETINE HCL 60220885375 No Longer Active Jordan Burch MD Active FISH OIL 1000 MG ORAL CAPSULE DELAYED RELEASE 1 pill b y mouth daily for cholesterol OMEGA-3 FATTY ACIDS 53746298860 Active Cee Jaffe LPN Active DIFLUCAN 100 MG ORAL TABLET 1 tablet by mouth daily 20 19/03/05 FLUCONAZOLE 64266195965 No Longer Active Tesfaye Sherman MD Acti ve BACTRIM DS 800-160 MG ORAL TABLET 1 tab by mouth twice daily 201 05/06/28 TRIMETHOPRIM-SULFAMETHOXAZOLE 56095325893 No Longer Active Umer Sherman MD Active BACTRIM DS 800-160 MG ORAL TABLET 1 tab by mouth twice daily 201 05/04/15 TRIMETHOPRIM-SULFAMETHOXAZOLE 02075026300 No Longer Active Umer Sherman MD Active DIFLUCAN 150 MG ORAL TABLET 1 tablet by mouth daily 20 18/09/20 FLUCONAZOLE 09841902926 No Longer Active Tesfaye Sherman MD Acti ve BACTRIM DS 800-160 MG ORAL TABLET 1 tab by mouth twice daily 201 04/13/17 TRIMETHOPRIM-SULFAMETHOXAZOLE 89735195409 No Longer Active Umer Sherman MD Active CEFTIN 250 MG ORAL TABLET 1 tablet twice daily x 7 days CEFUROXIME AXETIL 13513018511 No Longer Active Tesfaye Sherman MD Active DIFLUCAN 100 MG ORAL TABLET 1 tablet by mouth every other da y for 2 doses FLUCONAZOLE 64559674097 No Longer Active Tesfaye barron MD Active DIFLUCAN 100 MG ORAL TABLET 1 tablet by mouth daily X 3 DAYS 201 04/09/01 FLUCONAZOLE 97721462640 No Longer Active Rj Lyons tive MIRTAZAPINE 15 MG ORAL TABLET 1/2 tab by mouth at bedtime. 03/13 MIRTAZAPINE 65541594438 No Longer Active Tesfaye Sherman MD Active BACTRIM DS 800-160 MG ORAL TABLET 1 tab by mouth twice daily 201 04/09/01 TRIMETHOPRIM-SULFAMETHOXAZOLE 22292052171 No Longer Active Umer Sherman MD Active PRAMIPEXOLE DIHYDROCHLORIDE 0.125 MG ORAL TABLET take 1 tablet po qhs for restless leg syndrome. PRAMIPEXOLE DIHYDROCHLORI DE 70259679435 No Longer Active Tesfaye Sherman MD Active MAGNESIUM 400 MG ORAL TABLET 1 tab po daily MAGNE SIUM 32750695958 Active Chelsea Cardenas APRN Active CETIRIZINE HCL 5 MG ORAL TABLET Take 1 tablet by mouth daily CETIRIZINE HCL 42104609074 No Longer Active Chelsea Cardenas APRN Activ e TRIMETHOPRIM 100 MG ORAL TABLET 1/2 qd TRIM ETHOPRIM 84584423588 No Longer Active Chelsea Cardenas APRN Active BACTRIM DS 800-160 MG ORAL TABLET 1 tab by mouth twice daily 201 04/04/11 TRIMETHOPRIM-SULFAMETHOXAZOLE 04639944465 No Longer Active Umer Sherman MD Active BACTRIM DS 800-160 MG ORAL TABLET 1 tab by mouth twice daily X 10 DAYS TRIMETHOPRIM-SULFAMETHOXAZOLE 76613859385 No Longer Active Tesfaye Sherman MD Active AMOXICILLIN 500 MG ORAL CAPSULE 1 cap by mouth three times a day AMOXICILLIN 65644872632 No Longer Active Adriana Arreodndo, A A ctive B-12 1000 MCG ORAL LOZENGE 1 tab po daily CYANO COBALAMIN 70082794115 Active Tesfaye Sherman MD Active VITAMIN D3 2000 UNIT ORAL TABLET 1 daily, for vitamin D deficien cy CHOLECALCIFEROL 57190392850 No Longer Active Tesfaye Sherman MD Active TIZANIDINE HCL 2 MG ORAL TABLET take 1-2 tablet by [facility] every day at bedtime at 9pm PRN TIZANIDINE HCL 47508888731 Active Tesfaye hewitt MD Active ZITHROMAX 250 MG ORAL TABLET 2 po today, then 1 po q days 2-5 20 15/02/10 AZITHROMYCIN 21119747278 No Longer Active Tesfaye Sherman MD Active BACTRIM DS 800-160 MG ORAL TABLET 1 tab by mouth twice daily 201 03/03/23 TRIMETHOPRIM-SULFAMETHOXAZOLE 28831070978 No Longer Active Umer Sherman MD Active [facility] NIACIN FLUSH FREE 400-100 MG ORAL CAPSULE 1 daily NIACIN-INOSITOL 08663954846 Active Kayla Cooper MD Activ e DIFLUCAN 150 MG ORAL TABLET 1 qd FLUCONAZOL E 47632297724 No Longer Active Kayla Cooper MD Active FLUTICASONE PROPIONATE 50 MCG/ACT NASAL SUSPENSION 1 spray each nostril twice daily FLUTICASONE PROPIONATE 99432809423 Active Umer Sherman MD Active LOVASTATIN 20 MG ORAL TABLET Take 1 tablet by mouth daily LOVASTATIN 04380150060 No Longer Active Tesfaye Sherman MD Acti ve MELOXICAM 7.5 MG ORAL TABLET 1 tablet by mouth daily 2 MELOXICAM 18582198399 No Longer Active Tesfaye Sherman MD Acti ve GABAPENTIN 300 MG ORAL CAPSULE Take two tablets by mouth every e vening GABAPENTIN 25783255816 No Longer Active Edith Burch MD A ctive BACLOFEN 10 MG ORAL TABLET Take one tablet by mouth three times a d ay BACLOFEN 73329155517 Active Kayla Cooper MD Active GABAPENTIN 300 MG ORAL CAPSULE Take two tablets by mouth every e vening GABAPENTIN 300 MG ORAL CAPSULE 310866 GABAPENTIN I nactive MELOXICAM 7.5 MG ORAL TABLET 1 tablet by mouth daily 2 MELOXICAM 7.5 MG ORAL TABLET 034590 MELOXICAM Inactive LOVASTATIN 20 MG ORAL TABLET Take 1 tablet by mouth daily LOVASTATIN 20 MG ORAL TABLET 779677 LOVASTATIN Inactive DIFLUCAN 150 MG ORAL TABLET 1 qd DIFLUCAN 150 MG ORAL TABLET 149405 FLUCONAZOLE Inactive VITAMIN D3 2000 UNIT ORAL TABLET 1 daily, for vitamin D deficien cy VITAMIN D3 2000 UNIT ORAL TABLET CHOLECALCIFEROL Inactive AMOXICILLIN 500 MG ORAL CAPSULE 1 cap by mouth three times a day AMOXICILLIN 500 MG ORAL CAPSULE 216177 AMOXICILLIN Inactive BACTRIM DS 800-160 MG ORAL TABLET 1 tab by mouth twice daily X 10 DAYS BACTRIM DS 800-160 MG ORAL TABLET 676913 TRIMETHOPRIM-SULFAMETHOXAZOLE Inactive TRIMETHOPRIM 100 MG ORAL TABLET 1/2 qd 7 TRIMETHOPRIM 100 MG ORAL TABLET 872864 TRIMETHOPRIM Inactive CETIRIZINE HCL 5 MG ORAL TABLET Take 1 tablet by mouth daily CETIRIZINE HCL 5 MG ORAL TABLET 1508970 CETIRIZINE HCL Inactive PRAMIPEXOLE DIHYDROCHLORIDE 0.125 MG ORAL TABLET take 1 tablet po qhs for restless leg syndrome. PRAMIPEXOLE DIHYD ROCHLORIDE 0.125 MG ORAL TABLET 988426 PRAMIPEXOLE DIHYDROCHLORIDE Inactive MIRTAZAPINE 15 MG ORAL TABLET 1/2 tab by mouth at bedtime. 03/13 MIRTAZAPINE 15 MG ORAL TABLET 342476 MIRTAZAPINE In active DIFLUCAN 100 MG ORAL TABLET 1 tablet by mouth daily X 3 DAYS 201 04/09/01 DIFLUCAN 100 MG ORAL TABLET 523303 FLUCONAZOLE Inac tive DIFLUCAN 100 MG ORAL [...] 30 MG ORAL CAPSULE DELAYED RELEASE PARTICLES 271593 DULOXETINE HCL Inactive CYMBALTA 60 MG ORAL CAPSULE DELAYED RELEASE PARTICLES Take 1 tablet by mouth daily CYMBALTA 60 MG ORAL CAPSULE DELAYED RELEA SE PARTICLES 267844 DULOXETINE HCL Inactive FOSAMAX 70 MG ORAL TABLET 1 po qweek. Take 30min prio r to first food/drink. Avoid lying down x 1 hour. FOSAMAX 70 MG ORAL TA BLET 634799 ALENDRONATE SODIUM Inactive DIFLUCAN 100 MG ORAL TABLET 1 tablet by mouth daily 20 19/08/26 DIFLUCAN 100 MG ORAL TABLET 496560 FLUCONAZOLE Inactive PREDNISONE 20 MG ORAL TABLET 1 tab twice daily for 3 d ay, then one daily for three days PREDNISONE 20 MG ORAL TABLET 592194 PREDNIS ONE Inactive PROAIR HFA 108 (90 BASE) MCG/ACT INHALATION AEROSOL SO LUTION 1 puff every 6 hours as needed PROAIR HFA 108 (90 B ASE) MCG/ACT INHALATION AEROSOL SOLUTION ALBUTEROL SULFATE Inactive MECLIZINE HCL 25 MG ORAL TABLET one tab po qday prn dizziness 20 17/09/06 MECLIZINE HCL 25 MG ORAL TABLET 135356 MECLIZINE HCL Inactive PREDNISONE 20 MG ORAL TABLET 1 tablet by mouth twice d aily for 3 days, then 1 tablet daily for 3 days PREDNISONE 20 MG ORAL TA BLET 814146 PREDNISONE Inactive DIFLUCAN 100 MG ORAL TABLET 1 tablet by mouth daily 20 20/06/06 DIFLUCAN 100 MG ORAL TABLET 378007 FLUCONAZOLE Inactive REPHRESH PRO-B ORAL CAPSULE 1 tablet daily REPHRESH PRO-B ORAL CAPSULE LACTOBACILLUS Inactive RED YEAST RICE 600 MG ORAL CAPSULE 1 pill by mouth daily RED YEAST RICE 600 MG ORAL CAPSULE 376904 RED YEAST RICE EXTRACT In active SUDAFED [...] 20 19/02/09 DIFLUCAN 100 MG ORAL TABLET 087331 FLUCONAZOLE Inactive DIFLUCAN 100 MG ORAL TABLET 1 tablet by mouth daily 20 19/02/09 DIFLUCAN 100 MG ORAL TABLET 421914 FLUCONAZOLE Inactive VENLAFAXINE HCL 75 MG ORAL TABLET 1 am 1/2 at noon 201 07/07/09 VENLAFAXINE HCL 75 MG ORAL TABLET 390616 VENLAFAXINE HCL Inacti ve GABAPENTIN 300 MG ORAL CAPSULE 1 po daily GABAPENTIN 300 MG ORAL CAPSULE 074168 GABAPENTIN Inactive SUDAFED 12 HOUR 120 MG ORAL TABLET EXTENDED RELEASE 12 HOUR 1 pill twice daily if needed for congestion SUDAFED 12 HOUR 120 MG ORAL TABLET EXTENDED RELEASE 12 HOUR PSEUDOEPHEDRINE HCL Inactive AMITRIPTYLINE HCL 10 MG ORAL TABLET 1 tablet nightly by mout h for neuropathy AMITRIPTYLINE HCL 10 MG ORAL TABLET 310247 AMITRIPTYLINE HCL Inactive AMITRIPTYLINE HCL 50 MG ORAL TABLET 1 po q hs for sleep AMITRIPTYLINE HCL 50 MG ORAL TABLET 383845 AMITRIPTYLINE HCL Inac tive PREDNISONE 20 MG ORAL TABLET 1 tab twice daily for 3 d ay, then one daily for three days PREDNISONE 20 MG ORAL TABLET 359582 PREDNIS ONE Inactive ROPINIROLE HCL 0.25 MG ORAL TABLET 1 TAB PO Q HS 05/31 ROPINIROLE HCL 0.25 MG ORAL TABLET 324912 ROPINIROLE HCL Inact trent ROPINIROLE HCL 0.5 MG ORAL TABLET 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 ROPINIROLE HCL 0.5 MG ORAL TABLET 466829 ROPINIR OLE HCL Inactive BACTRIM DS 800-160 MG ORAL TABLET 1 tab by mouth twice daily 201 03/03/23 BACTRIM DS 800-160 MG ORAL TABLET 19830105 TRIMETHOPRIM-SULFAMETHOXAZOLE Inactive ZITHROMAX 250 MG ORAL TABLET 2 po today, then 1 po q days 2-5 20 15/02/10 ZITHROMAX 250 MG ORAL TABLET 619474 AZITHROMYCIN Mayela ctive BACTRIM DS 800-160 MG [...] a day AMOXICILLIN 500 MG ORAL CAPSULE 400882 AMOXICILLIN Inactive ZITHROMAX 250 MG ORAL TABLET 2 po today, then 1 po q days 2-5 20 20/04/28 ZITHROMAX 250 MG ORAL TABLET 794581 AZITHROMYCIN [place] ctive DIFLUCAN 100 MG ORAL TABLET 1 [...] -- NO DECISION MADE DURABLE POWER OF PARTS COUNTER ASSOCIATE FOR HEALTHCARE DISCUSED WITH PATIENT -- FULL [...] Magnesium - Chemistry cholesterol, serum 196 mg/dL 339-980 0316/07/30 triglyceride, serum, fasting 86 mg/dL 30-200 HDL cholesterol, serum 41 mg/dL 32-60 LDL cholesterol, serum 138 mg/dL 0-130 sodium, serum 140 mmol/L 461-053 2103/07/30 carbon dioxide, venous blood 28.6 mmol/L 21.0-32 [...] Negative mg/dL Negative sodium, serum 139 mmol/L 175-227 5919/11/07 carbon dioxide, venous blood 28.4 mmol/L 21.0-32 [...] ative Encounters Code Encounter Date Provider Facility CPT-29310 [id number] Vst-Est Level IV 14:08:03 C BRIDGET Sherman MD [facility] CPT-84785 Level 3 Est. Patient 18:06:36 CDT Tesfaye pearson MD [facility] CPT-78265 [id number] Vst-Est Level IV 17:09:34 C BRIDGET Sherman MD [facility] CPT-11482 Level 3 Est. Patient 17:27:08 CDT León hernandez APRN [facility]-15617 [id number] Vst-Est Level IV 14:00:[address] Tesfaye Sherman MD [facility] CPT-80064 [id number] Vst-Est Level IV 19:27:[address] Tesfaye Sherman MD [facility] CPT-59748 [id number] Vst-Est Level IV 10:41:41 C DT Tesfaye Sherman MD [facility] CPT-70753 [id number] Vst-Est Level III 09:40:56 CDT Tesfaye Sherman MD [facility] CPT-80107 Level 4 Est. Patient 22:18:12 CDT Tesfaye pearson MD [facility] CPT-20921 Level 4 Est. Patient 14:44:33 DIE MAINTENANCE Tesfaye pearson MD [facility] CPT-22769 Level 4 Est. Patient 13:55:29 DIE MAINTENANCE Tesfaye pearson MD [facility] CPT-76765 Level 4 Est. Patient 17:07:34 DIE MAINTENANCE Tesfaye pearson MD [facility] CPT-29027 Level 4 Est. Patient 13:56:54 CDT Tesfaye pearson MD [facility] CPT-80116 Level 4 Est. Patient 13:24:25 CDT Chelsea sanz APRN [facility] CPT-61292 Level 4 Est. Patient 09:14:56 CDT Tesfaye pearson MD [facility] CPT-17619 Level 4 Est. Patient 18:40:25 DIE MAINTENANCE Tesfaye pearson MD [facility] CPT-37703 Level 4 Est. Patient 18:13:07 DIE MAINTENANCE Tesfaye pearson MD [facility] CPT-74762 Level 3 Est. Patient 10:46:32 CDT Rj cotto DO [facility] CPT-25011 Level 4 Est. Patient 20:19:25 CDT Tesfaye pearson MD [facility] CPT-56497 Level 3 Est. Patient 09:07:31 CDT Tesfaye pearson MD [facility] CPT-54897 Level 4 Est. Patient 13:12:56 CDT Tesfaye pearson MD [facility] CPT-38096 Level 4 Est. Patient 21:24:55 DIE MAINTENANCE Tesfaye pearson MD [facility] CPT-30708 Level 3 Est. Patient 13:45:04 DIE MAINTENANCE Tesfaye pearson MD [facility] CPT-39569 Level 4 Est. Patient 13:50:45 CDT Tesfaye pearson MD [facility] CPT-63067 Level 3 Est. Patient 10:16:10 CDT Tesfaye pearson MD [facility] CPT-12643 Level 3 Est. Patient 16:36:07 DIE MAINTENANCE Kayla jameson MD [facility] CPT-56827 Level 4 Est. Patient 16:00:14 DIE MAINTENANCE Tesfaye pearson MD [facility] CPT-21591 Level 4 Est. Patient 11:02:24 DIE MAINTENANCE Tesfaye pearson MD [facility] CPT-43844 Level 3 Est. Patient 20:21:43 DIE MAINTENANCE Kayla jameson MD [facility]-40683 Level 3 Est. Patient 13:27:28 DIE MAINTENANCE Kayla jameson MD [facility]-57621 Level 4 Est. Patient 15:57:17 DIE MAINTENANCE Tesfaye pearson MD [facility] CPT-25284 Level 3 New Patient 13:25:47 CDT Tesfaye kidd MD [facility] CPT-91140 Level 3 New Patient 17:22:21 CDT Kayla angel MD [facility] Procedures Code Procedure Name Date Entry Date Standard Desc ription CPT-99333 Venipuncture Draw Fee 16:12:22 CDT CPT-G0439 Subsequent Annual Wellness Exam 18:06:36 CDT CPT-G0439 Subsequent Annual Wellness Exam 22:18:11 CDT CPT-99053 Bone Density - XRAY USE ONLY 11:43:58 CDT 2 CPT-71890 Bone Density - XRAY USE ONLY 10:05:16 CDT 2 CPT-35455 Prv Med New Pt 40-64 yrs 18:19:25 CDT 2016 CPT-68578 Foot, right, comp min 3V - XRAY USE ONLY 10:38:34 CDT CPT-G0439 Subsequent Annual Wellness Exam 13:55:04 CDT CPT-G0438 Initial Annual Wellness Exam 11:23:17 CD T CPT-J2930 Solu Medrol 125 mg (Methyl Prednisolone Sodium Succinate) 17:29:12 DIE MAINTENANCE CPT-12900 Abx/Therapy Injection 17:29:11 DIE MAINTENANCE CPT-J2930 Solu Medrol 125 mg (Methyl Prednisolone Sodium Succinate) 12:34:38 DIE MAINTENANCE CPT-J3420 Vitamin B12 1000mcg (Cyanocobalamin) 09:12:55 CDT CPT-J3420 Vitamin B12 1000mcg (Cyanocobalamin) 16:28:06 DIE MAINTENANCE CPT-05720 Venipuncture Draw Fee 08:39:53 CDT CPT-J3420 Vitamin B12 1000mcg (Cyanocobalamin) 08:46:22 CDT CPT-31915 Abx/Therapy Injection 08:46:22 CDT CPT-J3420 Vitamin B12 1000mcg (Cyanocobalamin) 08:41:26 CDT CPT-38655 Abx/Therapy Injection 08:41:26 CDT CPT-J3420 Vitamin B12 1000mcg (Cyanocobalamin) 08:57:15 CDT CPT-68450 Abx/Therapy Injection 08:57:15 CDT CPT-J3420 Vitamin B12 1000mcg (Cyanocobalamin) 10:59:03 CDT CPT-99521 Abx/Therapy Injection 10:59:03 CDT CPT-J3420 Vitamin B12 1000mcg (Cyanocobalamin) 15:05:39 CDT CPT-67157 Abx/Therapy Injection 15:05:39 CDT CPT-J3420 Vitamin B12 1000mcg (Cyanocobalamin) 13:50:45 CDT CPT-J3420 Vitamin B12 1000mcg (Cyanocobalamin) 08:48:55 CDT CPT-79966 Abx/Therapy Injection 08:48:55 CDT CPT-J3420 Vitamin B12 1000mcg (Cyanocobalamin) 09:14:54 CDT CPT-17452 Abx/Therapy Injection 09:14:54 CDT CPT-J3420 Vitamin B12 1000mcg (Cyanocobalamin) 09:06:06 CDT CPT-60859 Abx/Therapy Injection 09:06:06 CDT CPT-J3420 Vitamin B12 1000mcg (Cyanocobalamin) 09:49:14 CDT CPT-69881 Abx/Therapy Injection 09:49:14 CDT CPT-J3420 Vitamin B12 1000mcg (Cyanocobalamin) 09:10:30 DIE MAINTENANCE CPT-42123 Abx/Therapy Injection 09:10:30 DIE MAINTENANCE CPT-J3420 Vitamin B12 1000mcg (Cyanocobalamin) 09:11:07 DIE MAINTENANCE CPT-81425 Abx/Therapy Injection 09:11:07 DIE MAINTENANCE CPT-J3420 Vitamin B12 1000mcg (Cyanocobalamin) 09:57:03 DIE MAINTENANCE CPT-32852 Abx/Therapy Injection 09:57:03 DIE MAINTENANCE CPT-J3420 Vitamin B12 1000mcg (Cyanocobalamin) 09:23:21 DIE MAINTENANCE CPT-81791 Abx/Therapy Injection 09:23:21 DIE MAINTENANCE CPT-79027 Urine Dip (Floor Use Only) 20:21:44 DIE MAINTENANCE 201 02/12/11 CPT-83724 UA Dip Auto (Floor Use Only) 10:04:39 DIE MAINTENANCE 2 CPT-04402 Urine Dip (Floor Use Only) 13:27:28 DIE MAINTENANCE 201 02/12/01 CPT-21463 Bladder Scan 13:27:28 DIE MAINTENANCE CPT-92508 Abd single AP View 14:30:51 DIE MAINTENANCE CPT-OV Office Visit 10:15:43 CDT CPT-96581 Urine Dip (Floor Use Only) 17:22:21 CDT 201 02/09/02 CPT-99397 Bladder Scan 17:22:21 CDT
[2020-05-05 11:23] LABS: GLUCOSE 108 MG/DL (70-105); TOTAL PROTEIN 7.4 GM/DL (6.4-8.2)
--- OUTSIDE RECORDS SUMMARY | 2020-05-05 11:23 | XMS REPORT | Clinical Summary ---
Author Author Talon, Jeri Wood Organization [email or web address] Address Unknown Phone Unavailable Allergies, Adverse Reactions, [...] bilateral 782.3 Active 201 07/07/09 León Kodi ARCHITECTURAL INTERN Edema Peripheral neuropathy 356.9 Active Tesfaye lamb [...] for rest less leg syndrome. ROPINIROLE HCL 44047117232 No Longer Active MARCUS Panchal Active ROPINIROLE HCL 1 MG ORAL TABLET 1 tab po q hs R OPINIROLE HCL 50061602652 Active MARCUS Maravilla Active ROPINIROLE HCL 0.25 MG ORAL TABLET 1 TAB PO Q HS 05/31 ROPINIROLE HCL 88510255291 No Longer Active Tesfaye Sherman MD Ac tive PREDNISONE 20 MG ORAL TABLET 1 tab twice daily for 3 d ay, then one daily for three days PREDNISONE 98243413881 No Longer Active Tesfaye Sherman MD Active AMITRIPTYLINE HCL 50 MG ORAL TABLET 1 po q hs for sleep AMITRIPTYLINE HCL 40781805233 No Longer Active Tesfaye Sherman MD Active AMITRIPTYLINE HCL 10 MG ORAL TABLET 1 tablet nightly by mout h for neuropathy AMITRIPTYLINE HCL 32958429095 No Longer Active MARCUS Stapleton Active DIFLUCAN 100 MG ORAL TABLET 1 tablet by mouth daily 20 21/03/11 FLUCONAZOLE 08455149617 No Longer Active Tesfaye Sherman MD Acti ve BACTRIM DS 800-160 MG ORAL TABLET 1 tab by mouth twice daily 201 07/08/06 TRIMETHOPRIM-SULFAMETHOXAZOLE 62134815948 No Longer Active Umer Sherman MD Active CLARITIN 10 MG ORAL TABLET Take one by mouth daily LORATADINE 66084377661 Active Tesfaye Sherman MD Active SUDAFED 12 HOUR 120 MG ORAL TABLET EXTENDED RELEASE 12 HOUR 1 pill twice daily if needed for congestion PSEUDOEPHEDRINE HCL 933826443 13 No Longer Active Tesfaye Sherman MD Active FENOFIBRATE 145 MG ORAL TABLET 1 by mouth daily FENOFIBRATE 68022968706 Active Laurence Dominguez Active GABAPENTIN 300 MG ORAL CAPSULE 1 po daily GABAP ENTIN 90031001303 No Longer Active Tesfaye Sherman MD Active HYDROCHLOROTHIAZIDE 12.5 MG ORAL CAPSULE 1 pill by mough daily 2 HYDROCHLOROTHIAZIDE 87087622685 No Longer Active León Kodi ARCHITECTURAL INTERN Active VENLAFAXINE HCL 75 MG ORAL TABLET 1 am 1/ at noon 201 07/07/09 VENLAFAXINE HCL 41290294979 No Longer Active León Kodi ARCHITECTURAL INTERN Act trent DIFLUCAN 100 MG ORAL TABLET 1 tablet by mouth daily 20 19/02/09 FLUCONAZOLE 10280430451 No Longer Active León Kodi ARCHITECTURAL INTERN Active DIFLUCAN 100 MG ORAL TABLET 1 tablet by mouth daily 20 19/02/09 FLUCONAZOLE 72624203200 No Longer Active León Kodi ARCHITECTURAL INTERN Active OXYCODONE-ACETAMINOPHEN 5-325 MG ORAL TABLET Take one tablet by mouth every 6 hours 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 Use sparingly OXYCODONE-ACETAMINOPHEN 38012551713 Active Tesfaye villar MD Active CLONAZEPAM 0.5 MG ORAL TABLET Take 1/2 qam, and 1/2 qpm CLONAZEPAM 00429119517 Active Tesfaye Sherman MD Active PRELIEF 340 (65-50) MG (CA-P) ORAL TABLET CALCIUM GLYCEROPHOSPHATE 90615122093 No Longer Active Tesfaye Sherman MD Active SUDAFED 24 HOUR 240 MG ORAL TABLET EXTENDED RELEASE 24 HOUR 1 tab po daily PSEUDOEPHEDRINE HCL 17457345735 No Longer Active Raul Sherman MD Active RED YEAST RICE 600 MG ORAL CAPSULE 1 pill by mouth daily RED YEAST RICE EXTRACT 90967697456 No Longer Active Tesfaye Sherman MD Active REPHRESH PRO-B ORAL CAPSULE 1 tablet daily LACT OBACILLUS 78141720262 No Longer Active Tesfaye Sherman MD Active ABILIFY 2 MG ORAL TABLET 1 by mouth daily. MARIA ELENA PIPRAZOLE 50682590564 Active Tesfaye Sherman MD Active CYMBALTA 60 MG ORAL CAPSULE DELAYED RELEASE PARTICLES 1 cap by mouth daily for pain DULOXETINE HCL 29189210022 Active MARCUS Lindsay Active DIFLUCAN 100 MG ORAL TABLET 1 tablet by mouth daily 20 20/06/06 FLUCONAZOLE 59713508335 No Longer Active Tesfaye Sherman MD Acti ve PREDNISONE 20 MG ORAL TABLET 1 tablet by mouth twice d aily for 3 days, then 1 tablet daily for 3 days PREDNISONE 71212403297 No L onger Active Tesfaye Sherman MD Active BACTRIM DS 800-160 MG ORAL TABLET 1 tab by mouth twice daily 201 06/09/02 TRIMETHOPRIM-SULFAMETHOXAZOLE 06018752452 No Longer Active Fer Dominguez Active DIFLUCAN 100 MG ORAL TABLET 1 tablet by mouth daily 20 20/05/01 FLUCONAZOLE 30591643949 No Longer Active Tesfaye Sherman MD Acti ve ZITHROMAX 250 MG ORAL TABLET 2 po today, then 1 po q days 2-5 20 20/04/28 AZITHROMYCIN 91291987545 No Longer Active Tesfaye Sherman MD Active MECLIZINE HCL 25 MG ORAL TABLET one tab po qday prn dizziness 20 17/09/06 MECLIZINE HCL 23757023041 No Longer Active Tesfaye Sherman MD Active PROAIR HFA 108 (90 BASE) MCG/ACT INHALATION AEROSOL SO LUTION 1 puff every 6 hours as needed ALBUTEROL SULFATE 01442648562 No Long er Active Tesfaye Sherman MD Active PREDNISONE 20 MG ORAL TABLET 1 tab twice daily for 3 d ay, then one daily for three days PREDNISONE 52579268627 No Longer Active Tesfaye Sherman MD Active MECLIZINE HCL 25 MG ORAL TABLET one 4 times a day as needed for dizziness MECLIZINE HCL 99115612935 Active Tesfaye Sherman MD Active AMOXICILLIN 500 MG ORAL CAPSULE 1 cap by mouth three times a day AMOXICILLIN 58586138299 No Longer Active Laurence Raida Acti ve DIFLUCAN 100 MG ORAL TABLET 1 tablet by mouth daily 20 19/08/26 FLUCONAZOLE 66445907457 No Longer Active Tesfaye Sherman MD Acti ve BACTRIM DS 800-160 MG ORAL TABLET 1 tab by mouth twice daily 201 05/10/28 TRIMETHOPRIM-SULFAMETHOXAZOLE 17163476585 No Longer Active Fer mastersa Angelica Active FOSAMAX 70 MG ORAL TABLET 1 po qweek. Take 30min prio r to first food/drink. Avoid lying down x 1 hour. ALENDRONATE SODIUM 54105598 144 No Longer Active Laurence Dominguez Active CYMBALTA 60 MG ORAL CAPSULE DELAYED RELEASE PARTICLES Take 1 tablet by mouth daily DULOXETINE HCL 34628144600 No Longer Active Edith Burch MD Active CYMBALTA 30 MG ORAL CAPSULE DELAYED RELEASE PARTICLES 1 cap by mouth daily with 60mg DULOXETINE HCL 92932824324 No Longer Active Jordan Burch MD Active FISH OIL 1000 MG ORAL CAPSULE DELAYED RELEASE 1 pill b y mouth daily for cholesterol OMEGA-3 FATTY ACIDS 17639167537 Active Cee Jaffe LPN Active DIFLUCAN 100 MG ORAL TABLET 1 tablet by mouth daily 20 19/03/05 FLUCONAZOLE 09474827391 No Longer Active Tesfaye Sherman MD Acti ve BACTRIM DS 800-160 MG ORAL TABLET 1 tab by mouth twice daily 201 05/06/28 TRIMETHOPRIM-SULFAMETHOXAZOLE 85645511775 No Longer Active Umer Sherman MD Active BACTRIM DS 800-160 MG ORAL TABLET 1 tab by mouth twice daily 201 05/04/15 TRIMETHOPRIM-SULFAMETHOXAZOLE 31277972042 No Longer Active Umer Sherman MD Active DIFLUCAN 150 MG ORAL TABLET 1 tablet by mouth daily 20 18/09/20 FLUCONAZOLE 15612324126 No Longer Active Tesfaye Sherman MD Acti ve BACTRIM DS 800-160 MG ORAL TABLET 1 tab by mouth twice daily 201 04/13/17 TRIMETHOPRIM-SULFAMETHOXAZOLE 25243434562 No Longer Active Umer Sherman MD Active CEFTIN 250 MG ORAL TABLET 1 tablet twice daily x 7 days CEFUROXIME AXETIL 85026529079 No Longer Active Tesfaye Sherman MD Active DIFLUCAN 100 MG ORAL TABLET 1 tablet by mouth every other da y for 2 doses FLUCONAZOLE 89752595833 No Longer Active Tesfaye barron MD Active DIFLUCAN 100 MG ORAL TABLET 1 tablet by mouth daily X 3 DAYS 201 04/09/01 FLUCONAZOLE 68797325936 No Longer Active Rj Lyons tive MIRTAZAPINE 15 MG ORAL TABLET 1/2 tab by mouth at bedtime. 03/13 MIRTAZAPINE 35821021317 No Longer Active Tesfaye Sherman MD Active BACTRIM DS 800-160 MG ORAL TABLET 1 tab by mouth twice daily 201 04/09/01 TRIMETHOPRIM-SULFAMETHOXAZOLE 03735588269 No Longer Active Umer Sherman MD Active PRAMIPEXOLE DIHYDROCHLORIDE 0.125 MG ORAL TABLET take 1 tablet po qhs for restless leg syndrome. PRAMIPEXOLE DIHYDROCHLORI DE 82585140294 No Longer Active Tesfaye Sherman MD Active MAGNESIUM 400 MG ORAL TABLET 1 tab po daily MAGNE SIUM 37454550681 Active Chelsea Cardenas APRN Active CETIRIZINE HCL 5 MG ORAL TABLET Take 1 tablet by mouth daily CETIRIZINE HCL 60111489605 No Longer Active Chelsea Cardenas APRN Activ e TRIMETHOPRIM 100 MG ORAL TABLET 1/2 qd TRIM ETHOPRIM 73343684475 No Longer Active Chelsea Cardenas APRN Active BACTRIM DS 800-160 MG ORAL TABLET 1 tab by mouth twice daily 201 04/04/11 TRIMETHOPRIM-SULFAMETHOXAZOLE 04594114977 No Longer Active Umer Sherman MD Active BACTRIM DS 800-160 MG ORAL TABLET 1 tab by mouth twice daily X 10 DAYS TRIMETHOPRIM-SULFAMETHOXAZOLE 46559306071 No Longer Active Tesfaye Sherman MD Active AMOXICILLIN 500 MG ORAL CAPSULE 1 cap by mouth three times a day AMOXICILLIN 26539144432 No Longer Active Adriana Arredondo, A A ctive B-12 1000 MCG ORAL LOZENGE 1 tab po daily CYANO COBALAMIN 32287654320 Active Tesfaye Sherman MD Active VITAMIN D3 2000 UNIT ORAL TABLET 1 daily, for vitamin D deficien cy CHOLECALCIFEROL 32579801016 No Longer Active Tesfaye Sherman MD Active TIZANIDINE HCL 2 MG ORAL TABLET take 1-2 tablet by [facility] every day at bedtime at 9pm PRN TIZANIDINE HCL 65520571492 Active Tesfaye hewitt MD Active ZITHROMAX 250 MG ORAL TABLET 2 po today, then 1 po q days 2-5 20 15/02/10 AZITHROMYCIN 11186343005 No Longer Active Tesfaye Sherman MD Active BACTRIM DS 800-160 MG ORAL TABLET 1 tab by mouth twice daily 201 03/03/23 TRIMETHOPRIM-SULFAMETHOXAZOLE 61579138839 No Longer Active Umer Sherman MD Active [facility] NIACIN FLUSH FREE 400-100 MG ORAL CAPSULE 1 daily NIACIN-INOSITOL 82773549874 Active Kayla Cooper MD Activ e DIFLUCAN 150 MG ORAL TABLET 1 qd FLUCONAZOL E 36075560310 No Longer Active Kayla Cooper MD Active FLUTICASONE PROPIONATE 50 MCG/ACT NASAL SUSPENSION 1 spray each nostril twice daily FLUTICASONE PROPIONATE 13798201802 Active Umer Sherman MD Active LOVASTATIN 20 MG ORAL TABLET Take 1 tablet by mouth daily LOVASTATIN 94281989989 No Longer Active Tesfaye Sherman MD Acti ve MELOXICAM 7.5 MG ORAL TABLET 1 tablet by mouth daily 2 MELOXICAM 42760460320 No Longer Active Tesfaye Sherman MD Acti ve GABAPENTIN 300 MG ORAL CAPSULE Take two tablets by mouth every e vening GABAPENTIN 64366948839 No Longer Active Edith Burch MD A ctive BACLOFEN 10 MG ORAL TABLET Take one tablet by mouth three times a d ay BACLOFEN 35620010215 Active Kayla Cooper MD Active GABAPENTIN 300 MG ORAL CAPSULE Take two tablets by mouth every e vening GABAPENTIN 300 MG ORAL CAPSULE 663263 GABAPENTIN I nactive MELOXICAM 7.5 MG ORAL TABLET 1 tablet by mouth daily 2 MELOXICAM 7.5 MG ORAL TABLET 958120 MELOXICAM Inactive LOVASTATIN 20 MG ORAL TABLET Take 1 tablet by mouth daily LOVASTATIN 20 MG ORAL TABLET 553692 LOVASTATIN Inactive DIFLUCAN 150 MG ORAL TABLET 1 qd DIFLUCAN 150 MG ORAL TABLET 769924 FLUCONAZOLE Inactive VITAMIN D3 2000 UNIT ORAL TABLET 1 daily, for vitamin D deficien cy VITAMIN D3 2000 UNIT ORAL TABLET CHOLECALCIFEROL Inactive AMOXICILLIN 500 MG ORAL CAPSULE 1 cap by mouth three times a day AMOXICILLIN 500 MG ORAL CAPSULE 449532 AMOXICILLIN Inactive BACTRIM DS 800-160 MG ORAL TABLET 1 tab by mouth twice daily X 10 DAYS BACTRIM DS 800-160 MG ORAL TABLET 201798 TRIMETHOPRIM-SULFAMETHOXAZOLE Inactive TRIMETHOPRIM 100 MG ORAL TABLET 1/2 qd 7 TRIMETHOPRIM 100 MG ORAL TABLET 548832 TRIMETHOPRIM Inactive CETIRIZINE HCL 5 MG ORAL TABLET Take 1 tablet by mouth daily CETIRIZINE HCL 5 MG ORAL TABLET 0261779 CETIRIZINE HCL Inactive PRAMIPEXOLE DIHYDROCHLORIDE 0.125 MG ORAL TABLET take 1 tablet po qhs for restless leg syndrome. PRAMIPEXOLE DIHYD ROCHLORIDE 0.125 MG ORAL TABLET 096185 PRAMIPEXOLE DIHYDROCHLORIDE Inactive MIRTAZAPINE 15 MG ORAL TABLET 1/2 tab by mouth at bedtime. 03/13 MIRTAZAPINE 15 MG ORAL TABLET 514912 MIRTAZAPINE In active DIFLUCAN 100 MG ORAL TABLET 1 tablet by mouth daily X 3 DAYS 201 04/09/01 DIFLUCAN 100 MG ORAL TABLET 328114 FLUCONAZOLE Inac tive DIFLUCAN 100 MG ORAL [...] 30 MG ORAL CAPSULE DELAYED RELEASE PARTICLES 281389 DULOXETINE HCL Inactive CYMBALTA 60 MG ORAL CAPSULE DELAYED RELEASE PARTICLES Take 1 tablet by mouth daily CYMBALTA 60 MG ORAL CAPSULE DELAYED RELEA SE PARTICLES 900281 DULOXETINE HCL Inactive FOSAMAX 70 MG ORAL TABLET 1 po qweek. Take 30min prio r to first food/drink. Avoid lying down x 1 hour. FOSAMAX 70 MG ORAL TA BLET 897868 ALENDRONATE SODIUM Inactive DIFLUCAN 100 MG ORAL TABLET 1 tablet by mouth daily 20 19/08/26 DIFLUCAN 100 MG ORAL TABLET 438714 FLUCONAZOLE Inactive PREDNISONE 20 MG ORAL TABLET 1 tab twice daily for 3 d ay, then one daily for three days PREDNISONE 20 MG ORAL TABLET 753713 PREDNIS ONE Inactive PROAIR HFA 108 (90 BASE) MCG/ACT INHALATION AEROSOL SO LUTION 1 puff every 6 hours as needed PROAIR HFA 108 (90 B ASE) MCG/ACT INHALATION AEROSOL SOLUTION ALBUTEROL SULFATE Inactive MECLIZINE HCL 25 MG ORAL TABLET one tab po qday prn dizziness 20 17/09/06 MECLIZINE HCL 25 MG ORAL TABLET 401668 MECLIZINE HCL Inactive PREDNISONE 20 MG ORAL TABLET 1 tablet by mouth twice d aily for 3 days, then 1 tablet daily for 3 days PREDNISONE 20 MG ORAL TA BLET 014383 PREDNISONE Inactive DIFLUCAN 100 MG ORAL TABLET 1 tablet by mouth daily 20 20/06/06 DIFLUCAN 100 MG ORAL TABLET 159480 FLUCONAZOLE Inactive REPHRESH PRO-B ORAL CAPSULE 1 tablet daily REPHRESH PRO-B ORAL CAPSULE LACTOBACILLUS Inactive RED YEAST RICE 600 MG ORAL CAPSULE 1 pill by mouth daily RED YEAST RICE 600 MG ORAL CAPSULE 725027 RED YEAST RICE EXTRACT In active SUDAFED [...] 20 19/02/09 DIFLUCAN 100 MG ORAL TABLET 597839 FLUCONAZOLE Inactive DIFLUCAN 100 MG ORAL TABLET 1 tablet by mouth daily 20 19/02/09 DIFLUCAN 100 MG ORAL TABLET 183550 FLUCONAZOLE Inactive VENLAFAXINE HCL 75 MG ORAL TABLET 1 am 1/2 at noon 201 07/07/09 VENLAFAXINE HCL 75 MG ORAL TABLET 166760 VENLAFAXINE HCL Inacti ve GABAPENTIN 300 MG ORAL CAPSULE 1 po daily GABAPENTIN 300 MG ORAL CAPSULE 755458 GABAPENTIN Inactive SUDAFED 12 HOUR 120 MG ORAL TABLET EXTENDED RELEASE 12 HOUR 1 pill twice daily if needed for congestion SUDAFED 12 HOUR 120 MG ORAL TABLET EXTENDED RELEASE 12 HOUR PSEUDOEPHEDRINE HCL Inactive AMITRIPTYLINE HCL 10 MG ORAL TABLET 1 tablet nightly by mout h for neuropathy AMITRIPTYLINE HCL 10 MG ORAL TABLET 020139 AMITRIPTYLINE HCL Inactive AMITRIPTYLINE HCL 50 MG ORAL TABLET 1 po q hs for sleep AMITRIPTYLINE HCL 50 MG ORAL TABLET 449736 AMITRIPTYLINE HCL Inac tive PREDNISONE 20 MG ORAL TABLET 1 tab twice daily for 3 d ay, then one daily for three days PREDNISONE 20 MG ORAL TABLET 409482 PREDNIS ONE Inactive ROPINIROLE HCL 0.25 MG ORAL TABLET 1 TAB PO Q HS 05/31 ROPINIROLE HCL 0.25 MG ORAL TABLET 199358 ROPINIROLE HCL Inact trent ROPINIROLE HCL 0.5 MG ORAL TABLET 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 ROPINIROLE HCL 0.5 MG ORAL TABLET 519748 ROPINIR OLE HCL Inactive BACTRIM DS 800-160 MG ORAL TABLET 1 tab by mouth twice daily 201 03/03/23 BACTRIM DS 800-160 MG ORAL TABLET 19830105 TRIMETHOPRIM-SULFAMETHOXAZOLE Inactive ZITHROMAX 250 MG ORAL TABLET 2 po today, then 1 po q days 2-5 20 15/02/10 ZITHROMAX 250 MG ORAL TABLET 188341 AZITHROMYCIN Mayela ctive BACTRIM DS 800-160 MG [...] a day AMOXICILLIN 500 MG ORAL CAPSULE 685971 AMOXICILLIN Inactive ZITHROMAX 250 MG ORAL TABLET 2 po today, then 1 po q days 2-5 20 20/04/28 ZITHROMAX 250 MG ORAL TABLET 632574 AZITHROMYCIN Hockessin ctive DIFLUCAN 100 MG ORAL TABLET 1 [...] -- NO DECISION MADE DURABLE POWER OF TECHNICAL MANAGER FOR HEALTHCARE DISCUSED WITH PATIENT -- [...] Magnesium - Chemistry cholesterol, serum 196 mg/dL [phone]/07/30 triglyceride, serum, fasting 86 mg/dL 30-200 HDL cholesterol, serum 41 mg/dL 32-60 LDL cholesterol, serum 138 mg/dL 0-130 sodium, serum 140 mmol/L 467-693 2228/07/30 carbon dioxide, venous blood 28.6 mmol/L 21.0-32 [...] Negative mg/dL Negative sodium, serum 139 mmol/L 361-252 8395/11/07 carbon dioxide, venous blood 28.4 mmol/L 21.0-32 [...] ative Encounters Code Encounter Date Provider Facility CPT-91772 [id number] Vst-Est Level IV 14:08:03 C BRIDGET Sherman MD [facility] CPT-69958 Level 3 Est. Patient 18:06:36 CDT Tesfaye pearson MD [facility] CPT-72694 [id number] Vst-Est Level IV 17:09:34 C BRIDGET Sherman MD [facility] CPT-20212 Level 3 Est. Patient 17:27:08 CDT León hernandez APRN [facility]-62023 [id number] Vst-Est Level IV 14:00:[address] Tesfaye Sherman MD [facility] CPT-63065 [id number] Vst-Est Level IV 19:27:[address] Tesfaye Sherman MD [facility] CPT-82550 [id number] Vst-Est Level IV 10:41:41 C DT Tesfaye Sherman MD [facility] CPT-27249 [id number] Vst-Est Level III 09:40:56 CDT Tesfaye Sherman MD [facility] CPT-26684 Level 4 Est. Patient 22:18:12 CDT Tesfaye pearson MD [facility] CPT-75587 Level 4 Est. Patient 14:44:33 CAN FILLER Tesfaye pearson MD [facility] CPT-10492 Level 4 Est. Patient 13:55:29 CAN FILLER Tesfaye pearson MD [facility] CPT-10826 Level 4 Est. Patient 17:07:34 CAN FILLER Tesfaye pearson MD [facility] CPT-42155 Level 4 Est. Patient 13:56:54 CDT Tesfaye pearson MD [facility] CPT-80671 Level 4 Est. Patient 13:24:25 CDT Chelsea sanz APRN [facility] CPT-32773 Level 4 Est. Patient 09:14:56 CDT Tesfaye pearson MD [facility] CPT-28894 Level 4 Est. Patient 18:40:25 CAN FILLER Tesfaye pearson MD [facility] CPT-71423 Level 4 Est. Patient 18:13:07 CAN FILLER Tesfaye pearson MD [facility] CPT-74780 Level 3 Est. Patient 10:46:32 CDT Rj cotto DO [facility] CPT-63433 Level 4 Est. Patient 20:19:25 CDT Tesfaye pearson MD [facility] CPT-43179 Level 3 Est. Patient 09:07:31 CDT Tesfaye pearson MD [facility] CPT-59607 Level 4 Est. Patient 13:12:56 CDT Tesfaye pearson MD [facility] CPT-71256 Level 4 Est. Patient 21:24:55 CAN FILLER Tesfaye pearson MD [facility] CPT-66336 Level 3 Est. Patient 13:45:04 CAN FILLER Tesfaye pearson MD [facility] CPT-35909 Level 4 Est. Patient 13:50:45 CDT Tesfaye pearson MD [facility] CPT-34686 Level 3 Est. Patient 10:16:10 CDT Tesfaye pearson MD [facility] CPT-18116 Level 3 Est. Patient 16:36:07 CAN FILLER Kayla jameson MD [facility] CPT-59856 Level 4 Est. Patient 16:00:14 CAN FILLER Tesfaye pearson MD [facility] CPT-15753 Level 4 Est. Patient 11:02:24 CAN FILLER Tesfaye pearson MD [facility] CPT-01347 Level 3 Est. Patient 20:21:43 CAN FILLER Kayla jameson MD [facility]-73359 Level 3 Est. Patient 13:27:28 CAN FILLER Kayla jameson MD [facility]-49660 Level 4 Est. Patient 15:57:17 CAN FILLER Tesfaye pearson MD [facility] CPT-29461 Level 3 New Patient 13:25:47 CDT Tesfaye kidd MD [facility] CPT-21796 Level 3 New Patient 17:22:21 CDT Kayla angel MD [facility] Procedures Code Procedure Name Date Entry Date Standard Desc ription CPT-63185 Venipuncture Draw Fee 16:12:22 CDT CPT-G0439 Subsequent Annual Wellness Exam 18:06:36 CDT CPT-G0439 Subsequent Annual Wellness Exam 22:18:11 CDT CPT-69132 Bone Density - XRAY USE ONLY 11:43:58 CDT 2 CPT-39362 Bone Density - XRAY USE ONLY 10:05:16 CDT 2 CPT-43622 Prv Med New Pt 40-64 yrs 18:19:25 CDT 2016 CPT-16309 Foot, right, comp min 3V - XRAY USE ONLY 10:38:34 CDT CPT-G0439 Subsequent Annual Wellness Exam 13:55:04 CDT CPT-G0438 Initial Annual Wellness Exam 11:23:17 CD T CPT-J2930 Solu Medrol 125 mg (Methyl Prednisolone Sodium Succinate) 17:29:12 CAN FILLER CPT-04803 Abx/Therapy Injection 17:29:11 CAN FILLER CPT-J2930 Solu Medrol 125 mg (Methyl Prednisolone Sodium Succinate) 12:34:38 CAN FILLER CPT-J3420 Vitamin B12 1000mcg (Cyanocobalamin) 09:12:55 CDT CPT-J3420 Vitamin B12 1000mcg (Cyanocobalamin) 16:28:06 CAN FILLER CPT-19553 Venipuncture Draw Fee 08:39:53 CDT CPT-J3420 Vitamin B12 1000mcg (Cyanocobalamin) 08:46:22 CDT CPT-80036 Abx/Therapy Injection 08:46:22 CDT CPT-J3420 Vitamin B12 1000mcg (Cyanocobalamin) 08:41:26 CDT CPT-14981 Abx/Therapy Injection 08:41:26 CDT CPT-J3420 Vitamin B12 1000mcg (Cyanocobalamin) 08:57:15 CDT CPT-01580 Abx/Therapy Injection 08:57:15 CDT CPT-J3420 Vitamin B12 1000mcg (Cyanocobalamin) 10:59:03 CDT CPT-83545 Abx/Therapy Injection 10:59:03 CDT CPT-J3420 Vitamin B12 1000mcg (Cyanocobalamin) 15:05:39 CDT CPT-93405 Abx/Therapy Injection 15:05:39 CDT CPT-J3420 Vitamin B12 1000mcg (Cyanocobalamin) 13:50:45 CDT CPT-J3420 Vitamin B12 1000mcg (Cyanocobalamin) 08:48:55 CDT CPT-80032 Abx/Therapy Injection 08:48:55 CDT CPT-J3420 Vitamin B12 1000mcg (Cyanocobalamin) 09:14:54 CDT CPT-13526 Abx/Therapy Injection 09:14:54 CDT CPT-J3420 Vitamin B12 1000mcg (Cyanocobalamin) 09:06:06 CDT CPT-28062 Abx/Therapy Injection 09:06:06 CDT CPT-J3420 Vitamin B12 1000mcg (Cyanocobalamin) 09:49:14 CDT CPT-07759 Abx/Therapy Injection 09:49:14 CDT CPT-J3420 Vitamin B12 1000mcg (Cyanocobalamin) 09:10:30 CAN FILLER CPT-22638 Abx/Therapy Injection 09:10:30 CAN FILLER CPT-J3420 Vitamin B12 1000mcg (Cyanocobalamin) 09:11:07 CAN FILLER CPT-17088 Abx/Therapy Injection 09:11:07 CAN FILLER CPT-J3420 Vitamin B12 1000mcg (Cyanocobalamin) 09:57:03 CAN FILLER CPT-45917 Abx/Therapy Injection 09:57:03 CAN FILLER CPT-J3420 Vitamin B12 1000mcg (Cyanocobalamin) 09:23:21 CAN FILLER CPT-00454 Abx/Therapy Injection 09:23:21 CAN FILLER CPT-96318 Urine Dip (Floor Use Only) 20:21:44 CAN FILLER 201 02/12/11 CPT-30056 UA Dip Auto (Floor Use Only) 10:04:39 CAN FILLER 2 CPT-12360 Urine Dip (Floor Use Only) 13:27:28 CAN FILLER 201 02/12/01 CPT-03762 Bladder Scan 13:27:28 CAN FILLER CPT-23562 Abd single AP View 14:30:51 CAN FILLER CPT-OV Office Visit 10:15:43 CDT CPT-20326 Urine Dip (Floor Use Only) 17:22:21 CDT 201 02/09/02 CPT-94407 Bladder Scan 17:22:21 CDT
[2020-05-05 11:24] LABS: BILIRUBIN,TOTAL 0.4 MG/DL (0.1-1.0); CARBON DIOXIDE 20 MMOL/L (21-32)
--- OUTSIDE RECORDS SUMMARY | 2020-05-05 11:24 | XMS REPORT | Clinical Summary ---
Author Author Talon, Jeri Wood Organization [facility] Address Unknown Phone Unavailable Allergies, Adverse Reactions, [...] of tobacco use V15.82 Active 2017 Tesfaye Shreman MD Personal history of tobacco use Dysuria [...] Routine general medical examination at a [facility] acility Body Mass Index 21.0-21.9 [...] bilateral 782.3 Active 201 07/07/09 León Kodi ACUTE SPECIALIST Edema Peripheral neuropathy 356.9 Active Tesfaye [...] for rest less leg syndrome. ROPINIROLE HCL 66986214427 No Longer Active MARCUS Panchal Active ROPINIROLE HCL 1 MG ORAL TABLET 1 tab po q hs R OPINIROLE HCL 68725414058 Active MARCUS Maravilla Active ROPINIROLE HCL 0.25 MG ORAL TABLET 1 TAB PO Q HS 05/31 ROPINIROLE HCL 96827332168 No Longer Active Tesfaye Sherman MD Ac tive PREDNISONE 20 MG ORAL TABLET 1 tab twice daily for 3 d ay, then one daily for three days PREDNISONE 99664634420 No Longer Active Tesfaye Sherman MD Active AMITRIPTYLINE HCL 50 MG ORAL TABLET 1 po q hs for sleep AMITRIPTYLINE HCL 77001826550 No Longer Active Tesfaye Sherman MD Active AMITRIPTYLINE HCL 10 MG ORAL TABLET 1 tablet nightly by mout h for neuropathy AMITRIPTYLINE HCL 19894918888 No Longer Active MARCUS Stapleton Active DIFLUCAN 100 MG ORAL TABLET 1 tablet by mouth daily 20 21/03/11 FLUCONAZOLE 80639211787 No Longer Active Tesfaye Sherman MD Acti ve BACTRIM DS 800-160 MG ORAL TABLET 1 tab by mouth twice daily 201 07/08/06 TRIMETHOPRIM-SULFAMETHOXAZOLE 91514240782 No Longer Active Umer Sherman MD Active CLARITIN 10 MG ORAL TABLET Take one by mouth daily LORATADINE 92732217745 Active Tesfaye Sherman MD Active SUDAFED 12 HOUR 120 MG ORAL TABLET EXTENDED RELEASE 12 HOUR 1 pill twice daily if needed for congestion PSEUDOEPHEDRINE HCL 682316134 13 No Longer Active Tesfaye Sherman MD Active FENOFIBRATE 145 MG ORAL TABLET 1 by mouth daily FENOFIBRATE 06264304851 Active Laurence Dominguez Active GABAPENTIN 300 MG ORAL CAPSULE 1 po daily GABAP ENTIN 88156190256 No Longer Active Tesfaye Sherman MD Active HYDROCHLOROTHIAZIDE 12.5 MG ORAL CAPSULE 1 pill by mough daily 2 HYDROCHLOROTHIAZIDE 01757598330 No Longer Active León Kodi ACUTE SPECIALIST Active VENLAFAXINE HCL 75 MG ORAL TABLET 1 am 1/ at noon 201 07/07/09 VENLAFAXINE HCL 38520159771 No Longer Active León Kodi ACUTE SPECIALIST Act trent DIFLUCAN 100 MG ORAL TABLET 1 tablet by mouth daily 20 19/02/09 FLUCONAZOLE 77215748582 No Longer Active León Kodi ACUTE SPECIALIST Active DIFLUCAN 100 MG ORAL TABLET 1 tablet by mouth daily 20 19/02/09 FLUCONAZOLE 98654505290 No Longer Active León Kodi ACUTE SPECIALIST Active OXYCODONE-ACETAMINOPHEN 5-325 MG ORAL TABLET Take one tablet by mouth every 6 hours 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 Use sparingly OXYCODONE-ACETAMINOPHEN 59017067435 Active Tesfaye villar MD Active CLONAZEPAM 0.5 MG ORAL TABLET Take 1/2 qam, and 1/2 qpm CLONAZEPAM 54257197374 Active Tesfaye Sherman MD Active PRELIEF 340 (65-50) MG (CA-P) ORAL TABLET CALCIUM GLYCEROPHOSPHATE 57309565026 No Longer Active Tesfaye Sherman MD Active SUDAFED 24 HOUR 240 MG ORAL TABLET EXTENDED RELEASE 24 HOUR 1 tab po daily PSEUDOEPHEDRINE HCL 46676036185 No Longer Active Raul Sherman MD Active RED YEAST RICE 600 MG ORAL CAPSULE 1 pill by mouth daily RED YEAST RICE EXTRACT 39740705967 No Longer Active Tesfaye Sherman MD Active REPHRESH PRO-B ORAL CAPSULE 1 tablet daily LACT OBACILLUS 36550096349 No Longer Active Tesfaye Sherman MD Active ABILIFY 2 MG ORAL TABLET 1 by mouth daily. MARIA ELENA PIPRAZOLE 59860737859 Active Tesfaye Sherman MD Active CYMBALTA 60 MG ORAL CAPSULE DELAYED RELEASE PARTICLES 1 cap by mouth daily for pain DULOXETINE HCL 24410715975 Active MARCUS Lindsay Active DIFLUCAN 100 MG ORAL TABLET 1 tablet by mouth daily 20 20/06/06 FLUCONAZOLE 74131496412 No Longer Active Tesfaye Sherman MD Acti ve PREDNISONE 20 MG ORAL TABLET 1 tablet by mouth twice d aily for 3 days, then 1 tablet daily for 3 days PREDNISONE 41800153238 No L onger Active Tesfaye Sherman MD Active BACTRIM DS 800-160 MG ORAL TABLET 1 tab by mouth twice daily 201 06/09/02 TRIMETHOPRIM-SULFAMETHOXAZOLE 77055243974 No Longer Active Fer Dominguez Active DIFLUCAN 100 MG ORAL TABLET 1 tablet by mouth daily 20 20/05/01 FLUCONAZOLE 21614684433 No Longer Active Tesfaye Sherman MD Acti ve ZITHROMAX 250 MG ORAL TABLET 2 po today, then 1 po q days 2-5 20 20/04/28 AZITHROMYCIN 44866280197 No Longer Active Tesfaye Sherman MD Active MECLIZINE HCL 25 MG ORAL TABLET one tab po qday prn dizziness 20 17/09/06 MECLIZINE HCL 11309873998 No Longer Active Tesfaye Sherman MD Active PROAIR HFA 108 (90 BASE) MCG/ACT INHALATION AEROSOL SO LUTION 1 puff every 6 hours as needed ALBUTEROL SULFATE 49562903642 No Long er Active Tesfaye Sherman MD Active PREDNISONE 20 MG ORAL TABLET 1 tab twice daily for 3 d ay, then one daily for three days PREDNISONE 24878239970 No Longer Active Tesfaye Sherman MD Active MECLIZINE HCL 25 MG ORAL TABLET one 4 times a day as needed for dizziness MECLIZINE HCL 64391578140 Active Tesfaye Sherman MD Active AMOXICILLIN 500 MG ORAL CAPSULE 1 cap by mouth three times a day AMOXICILLIN 46150158184 No Longer Active Laurence Raida Acti ve DIFLUCAN 100 MG ORAL TABLET 1 tablet by mouth daily 20 19/08/26 FLUCONAZOLE 03240848020 No Longer Active Tesfaye Sherman MD Acti ve BACTRIM DS 800-160 MG ORAL TABLET 1 tab by mouth twice daily 201 05/10/28 TRIMETHOPRIM-SULFAMETHOXAZOLE 07083905897 No Longer Active Fer mastersa Angelica Active FOSAMAX 70 MG ORAL TABLET 1 po qweek. Take 30min prio r to first food/drink. Avoid lying down x 1 hour. ALENDRONATE SODIUM 20102110 144 No Longer Active Laurence Dominguez Active CYMBALTA 60 MG ORAL CAPSULE DELAYED RELEASE PARTICLES Take 1 tablet by mouth daily DULOXETINE HCL 40578250569 No Longer Active Edith Burch MD Active CYMBALTA 30 MG ORAL CAPSULE DELAYED RELEASE PARTICLES 1 cap by mouth daily with 60mg DULOXETINE HCL 14186243673 No Longer Active Jordan Burch MD Active FISH OIL 1000 MG ORAL CAPSULE DELAYED RELEASE 1 pill b y mouth daily for cholesterol OMEGA-3 FATTY ACIDS 07973927982 Active Cee Jaffe LPN Active DIFLUCAN 100 MG ORAL TABLET 1 tablet by mouth daily 20 19/03/05 FLUCONAZOLE 11446765238 No Longer Active Tesfaye Sherman MD Acti ve BACTRIM DS 800-160 MG ORAL TABLET 1 tab by mouth twice daily 201 05/06/28 TRIMETHOPRIM-SULFAMETHOXAZOLE 69693561852 No Longer Active Umer Sherman MD Active BACTRIM DS 800-160 MG ORAL TABLET 1 tab by mouth twice daily 201 05/04/15 TRIMETHOPRIM-SULFAMETHOXAZOLE 22406155341 No Longer Active Umer Sherman MD Active DIFLUCAN 150 MG ORAL TABLET 1 tablet by mouth daily 20 18/09/20 FLUCONAZOLE 48420105284 No Longer Active Tesfaye Sherman MD Acti ve BACTRIM DS 800-160 MG ORAL TABLET 1 tab by mouth twice daily 201 04/13/17 TRIMETHOPRIM-SULFAMETHOXAZOLE 63402707944 No Longer Active Umer Sherman MD Active CEFTIN 250 MG ORAL TABLET 1 tablet twice daily x 7 days CEFUROXIME AXETIL 91578827680 No Longer Active Tesfaye Sherman MD Active DIFLUCAN 100 MG ORAL TABLET 1 tablet by mouth every other da y for 2 doses FLUCONAZOLE 99449219443 No Longer Active Tesfaye barron MD Active DIFLUCAN 100 MG ORAL TABLET 1 tablet by mouth daily X 3 DAYS 201 04/09/01 FLUCONAZOLE 61370731049 No Longer Active Rj Lyons tive MIRTAZAPINE 15 MG ORAL TABLET 1/2 tab by mouth at bedtime. 03/13 MIRTAZAPINE 54001368758 No Longer Active Tesfaye Sherman MD Active BACTRIM DS 800-160 MG ORAL TABLET 1 tab by mouth twice daily 201 04/09/01 TRIMETHOPRIM-SULFAMETHOXAZOLE 01557526722 No Longer Active Umer Sherman MD Active PRAMIPEXOLE DIHYDROCHLORIDE 0.125 MG ORAL TABLET take 1 tablet po qhs for restless leg syndrome. PRAMIPEXOLE DIHYDROCHLORI DE 90760499294 No Longer Active Tesfaye Sherman MD Active MAGNESIUM 400 MG ORAL TABLET 1 tab po daily MAGNE SIUM 25963393911 Active Chelsea Cardenas APRN Active CETIRIZINE HCL 5 MG ORAL TABLET Take 1 tablet by mouth daily CETIRIZINE HCL 66258770406 No Longer Active Chelsea Cardenas APRN Activ e TRIMETHOPRIM 100 MG ORAL TABLET 1/2 qd TRIM ETHOPRIM 01290934110 No Longer Active Chelsea Cardenas APRN Active BACTRIM DS 800-160 MG ORAL TABLET 1 tab by mouth twice daily 201 04/04/11 TRIMETHOPRIM-SULFAMETHOXAZOLE 40029152888 No Longer Active Umer Sherman MD Active BACTRIM DS 800-160 MG ORAL TABLET 1 tab by mouth twice daily X 10 DAYS TRIMETHOPRIM-SULFAMETHOXAZOLE 62502369193 No Longer Active Tesfaye Sherman MD Active AMOXICILLIN 500 MG ORAL CAPSULE 1 cap by mouth three times a day AMOXICILLIN 81267130191 No Longer Active Adriana Arredondo, A A ctive B-12 1000 MCG ORAL LOZENGE 1 tab po daily CYANO COBALAMIN 50389614244 Active Tesfaye Sherman MD Active VITAMIN D3 2000 UNIT ORAL TABLET 1 daily, for vitamin D deficien cy CHOLECALCIFEROL 64541825787 No Longer Active Tesfaye Sherman MD Active TIZANIDINE HCL 2 MG ORAL TABLET take 1-2 tablet by [facility] every day at bedtime at 9pm PRN TIZANIDINE HCL 33193388108 Active Tesfaye hewitt MD Active ZITHROMAX 250 MG ORAL TABLET 2 po today, then 1 po q days 2-5 20 15/02/10 AZITHROMYCIN 46511181936 No Longer Active Tesfaye Sherman MD Active BACTRIM DS 800-160 MG ORAL TABLET 1 tab by mouth twice daily 201 03/03/23 TRIMETHOPRIM-SULFAMETHOXAZOLE 61578806045 No Longer Active Umer Sherman MD Active [facility] NIACIN FLUSH FREE 400-100 MG ORAL CAPSULE 1 daily NIACIN-INOSITOL 75436489782 Active Kayla Cooper MD Activ e DIFLUCAN 150 MG ORAL TABLET 1 qd FLUCONAZOL E 99933368054 No Longer Active Kayla Cooper MD Active FLUTICASONE PROPIONATE 50 MCG/ACT NASAL SUSPENSION 1 spray each nostril twice daily FLUTICASONE PROPIONATE 59983093202 Active Umer Sherman MD Active LOVASTATIN 20 MG ORAL TABLET Take 1 tablet by mouth daily LOVASTATIN 76294867736 No Longer Active Tesfaye Sherman MD Acti ve MELOXICAM 7.5 MG ORAL TABLET 1 tablet by mouth daily 2 MELOXICAM 21010998711 No Longer Active Tesfaye Sherman MD Acti ve GABAPENTIN 300 MG ORAL CAPSULE Take two tablets by mouth every e vening GABAPENTIN 61276341332 No Longer Active Edith Burch MD A ctive BACLOFEN 10 MG ORAL TABLET Take one tablet by mouth three times a d ay BACLOFEN 96959385037 Active Kayla Cooper MD Active GABAPENTIN 300 MG ORAL CAPSULE Take two tablets by mouth every e vening GABAPENTIN 300 MG ORAL CAPSULE 616493 GABAPENTIN I nactive MELOXICAM 7.5 MG ORAL TABLET 1 tablet by mouth daily 2 MELOXICAM 7.5 MG ORAL TABLET 857233 MELOXICAM Inactive LOVASTATIN 20 MG ORAL TABLET Take 1 tablet by mouth daily LOVASTATIN 20 MG ORAL TABLET 221909 LOVASTATIN Inactive DIFLUCAN 150 MG ORAL TABLET 1 qd DIFLUCAN 150 MG ORAL TABLET 457373 FLUCONAZOLE Inactive VITAMIN D3 2000 UNIT ORAL TABLET 1 daily, for vitamin D deficien cy VITAMIN D3 2000 UNIT ORAL TABLET CHOLECALCIFEROL Inactive AMOXICILLIN 500 MG ORAL CAPSULE 1 cap by mouth three times a day AMOXICILLIN 500 MG ORAL CAPSULE 312860 AMOXICILLIN Inactive BACTRIM DS 800-160 MG ORAL TABLET 1 tab by mouth twice daily X 10 DAYS BACTRIM DS 800-160 MG ORAL TABLET 153960 TRIMETHOPRIM-SULFAMETHOXAZOLE Inactive TRIMETHOPRIM 100 MG ORAL TABLET 1/2 qd 7 TRIMETHOPRIM 100 MG ORAL TABLET 708363 TRIMETHOPRIM Inactive CETIRIZINE HCL 5 MG ORAL TABLET Take 1 tablet by mouth daily CETIRIZINE HCL 5 MG ORAL TABLET 0302602 CETIRIZINE HCL Inactive PRAMIPEXOLE DIHYDROCHLORIDE 0.125 MG ORAL TABLET take 1 tablet po qhs for restless leg syndrome. PRAMIPEXOLE DIHYD ROCHLORIDE 0.125 MG ORAL TABLET 066683 PRAMIPEXOLE DIHYDROCHLORIDE Inactive MIRTAZAPINE 15 MG ORAL TABLET 1/2 tab by mouth at bedtime. 03/13 MIRTAZAPINE 15 MG ORAL TABLET 760654 MIRTAZAPINE In active DIFLUCAN 100 MG ORAL TABLET 1 tablet by mouth daily X 3 DAYS 201 04/09/01 DIFLUCAN 100 MG ORAL TABLET 109690 FLUCONAZOLE Inac tive DIFLUCAN 100 MG ORAL [...] 30 MG ORAL CAPSULE DELAYED RELEASE PARTICLES 273087 DULOXETINE HCL Inactive CYMBALTA 60 MG ORAL CAPSULE DELAYED RELEASE PARTICLES Take 1 tablet by mouth daily CYMBALTA 60 MG ORAL CAPSULE DELAYED RELEA SE PARTICLES 726281 DULOXETINE HCL Inactive FOSAMAX 70 MG ORAL TABLET 1 po qweek. Take 30min prio r to first food/drink. Avoid lying down x 1 hour. FOSAMAX 70 MG ORAL TA BLET 151038 ALENDRONATE SODIUM Inactive DIFLUCAN 100 MG ORAL TABLET 1 tablet by mouth daily 20 19/08/26 DIFLUCAN 100 MG ORAL TABLET 626822 FLUCONAZOLE Inactive PREDNISONE 20 MG ORAL TABLET 1 tab twice daily for 3 d ay, then one daily for three days PREDNISONE 20 MG ORAL TABLET 276116 PREDNIS ONE Inactive PROAIR HFA 108 (90 BASE) MCG/ACT INHALATION AEROSOL SO LUTION 1 puff every 6 hours as needed PROAIR HFA 108 (90 B ASE) MCG/ACT INHALATION AEROSOL SOLUTION ALBUTEROL SULFATE Inactive MECLIZINE HCL 25 MG ORAL TABLET one tab po qday prn dizziness 20 17/09/06 MECLIZINE HCL 25 MG ORAL TABLET 282576 MECLIZINE HCL Inactive PREDNISONE 20 MG ORAL TABLET 1 tablet by mouth twice d aily for 3 days, then 1 tablet daily for 3 days PREDNISONE 20 MG ORAL TA BLET 608553 PREDNISONE Inactive DIFLUCAN 100 MG ORAL TABLET 1 tablet by mouth daily 20 20/06/06 DIFLUCAN 100 MG ORAL TABLET 785537 FLUCONAZOLE Inactive REPHRESH PRO-B ORAL CAPSULE 1 tablet daily REPHRESH PRO-B ORAL CAPSULE LACTOBACILLUS Inactive RED YEAST RICE 600 MG ORAL CAPSULE 1 pill by mouth daily RED YEAST RICE 600 MG ORAL CAPSULE 775619 RED YEAST RICE EXTRACT In active SUDAFED [...] 20 19/02/09 DIFLUCAN 100 MG ORAL TABLET 131853 FLUCONAZOLE Inactive DIFLUCAN 100 MG ORAL TABLET 1 tablet by mouth daily 20 19/02/09 DIFLUCAN 100 MG ORAL TABLET 973189 FLUCONAZOLE Inactive VENLAFAXINE HCL 75 MG ORAL TABLET 1 am 1/2 at noon 201 07/07/09 VENLAFAXINE HCL 75 MG ORAL TABLET 654299 VENLAFAXINE HCL Inacti ve GABAPENTIN 300 MG ORAL CAPSULE 1 po daily GABAPENTIN 300 MG ORAL CAPSULE 755432 GABAPENTIN Inactive SUDAFED 12 HOUR 120 MG ORAL TABLET EXTENDED RELEASE 12 HOUR 1 pill twice daily if needed for congestion SUDAFED 12 HOUR 120 MG ORAL TABLET EXTENDED RELEASE 12 HOUR PSEUDOEPHEDRINE HCL Inactive AMITRIPTYLINE HCL 10 MG ORAL TABLET 1 tablet nightly by mout h for neuropathy AMITRIPTYLINE HCL 10 MG ORAL TABLET 359570 AMITRIPTYLINE HCL Inactive AMITRIPTYLINE HCL 50 MG ORAL TABLET 1 po q hs for sleep AMITRIPTYLINE HCL 50 MG ORAL TABLET 901710 AMITRIPTYLINE HCL Inac tive PREDNISONE 20 MG ORAL TABLET 1 tab twice daily for 3 d ay, then one daily for three days PREDNISONE 20 MG ORAL TABLET 378582 PREDNIS ONE Inactive ROPINIROLE HCL 0.25 MG ORAL TABLET 1 TAB PO Q HS 05/31 ROPINIROLE HCL 0.25 MG ORAL TABLET 835832 ROPINIROLE HCL Inact trent ROPINIROLE HCL 0.5 MG ORAL TABLET 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 ROPINIROLE HCL 0.5 MG ORAL TABLET 906961 ROPINIR OLE HCL Inactive BACTRIM DS 800-160 MG ORAL TABLET 1 tab by mouth twice daily 201 03/03/23 BACTRIM DS 800-160 MG ORAL TABLET 19830105 TRIMETHOPRIM-SULFAMETHOXAZOLE Inactive ZITHROMAX 250 MG ORAL TABLET 2 po today, then 1 po q days 2-5 20 15/02/10 ZITHROMAX 250 MG ORAL TABLET 496704 AZITHROMYCIN Mayela ctive BACTRIM DS 800-160 MG [...] a day AMOXICILLIN 500 MG ORAL CAPSULE 436373 AMOXICILLIN Inactive ZITHROMAX 250 MG ORAL TABLET 2 po today, then 1 po q days 2-5 20 20/04/28 ZITHROMAX 250 MG ORAL TABLET 640496 AZITHROMYCIN [place] ctive DIFLUCAN 100 MG ORAL TABLET 1 [...] -- NO DECISION MADE DURABLE POWER OF GREENKEEPER FOR HEALTHCARE DISCUSED WITH PATIENT -- FULL [...] Magnesium - Chemistry cholesterol, serum 196 mg/dL 270-163 3451/07/30 triglyceride, serum, fasting 86 mg/dL 30-200 HDL cholesterol, serum 41 mg/dL 32-60 LDL cholesterol, serum 138 mg/dL 0-130 sodium, serum 140 mmol/L 605-222 0498/07/30 carbon dioxide, venous blood 28.6 mmol/L 21.0-32 [...] Negative mg/dL Negative sodium, serum 139 mmol/L 453-896 8267/11/07 carbon dioxide, venous blood 28.4 mmol/L 21.0-32 [...] ative Encounters Code Encounter Date Provider Facility CPT-77346 [id number] Vst-Est Level IV 14:08:03 C BRIDGET Sherman MD [facility] CPT-99906 Level 3 Est. Patient 18:06:36 CDT Tesfaye pearson MD [facility] CPT-47689 [id number] Vst-Est Level IV 17:09:34 C BRIDGET Sherman MD [facility] CPT-06864 Level 3 Est. Patient 17:27:08 CDT León hernandez APRN [facility]-62166 [id number] Vst-Est Level IV 14:00:[address] Tesfaye Sherman MD [facility] CPT-59354 [id number] Vst-Est Level IV 19:27:[address] Tesfaye Sherman MD [facility] CPT-43627 [id number] Vst-Est Level IV 10:41:41 C DT Tesfaye Sherman MD [facility] CPT-50233 [id number] Vst-Est Level III 09:40:56 CDT Tesfaye Sherman MD [facility] CPT-48245 Level 4 Est. Patient 22:18:12 CDT Tesfaye pearson MD [facility] CPT-50947 Level 4 Est. Patient 14:44:33 NITROCELLULOSE MAKER Tesfaye pearson MD [facility] CPT-68024 Level 4 Est. Patient 13:55:29 NITROCELLULOSE MAKER Tesfaye pearson MD [facility] CPT-79074 Level 4 Est. Patient 17:07:34 NITROCELLULOSE MAKER Tesfaye pearson MD [facility] CPT-09694 Level 4 Est. Patient 13:56:54 CDT Tesfaye pearson MD [facility] CPT-09577 Level 4 Est. Patient 13:24:25 CDT Chelsea sanz APRN [facility] CPT-80977 Level 4 Est. Patient 09:14:56 CDT Tesfaye pearson MD [facility] CPT-93506 Level 4 Est. Patient 18:40:25 NITROCELLULOSE MAKER Tesfaye pearson MD [facility] CPT-01622 Level 4 Est. Patient 18:13:07 NITROCELLULOSE MAKER Tesfaye pearson MD [facility] CPT-17405 Level 3 Est. Patient 10:46:32 CDT Rj cotto DO [facility] CPT-07919 Level 4 Est. Patient 20:19:25 CDT Tesfaye pearson MD [facility] CPT-69678 Level 3 Est. Patient 09:07:31 CDT Tesfaye pearson MD [facility] CPT-88299 Level 4 Est. Patient 13:12:56 CDT Tesfaye pearson MD [facility] CPT-03525 Level 4 Est. Patient 21:24:55 NITROCELLULOSE MAKER Tesfaye pearson MD [facility] CPT-75767 Level 3 Est. Patient 13:45:04 NITROCELLULOSE MAKER Tesfaye pearson MD [facility] CPT-76897 Level 4 Est. Patient 13:50:45 CDT Tesfaye pearson MD [facility] CPT-23009 Level 3 Est. Patient 10:16:10 CDT Tesfaye pearson MD [facility] CPT-41916 Level 3 Est. Patient 16:36:07 NITROCELLULOSE MAKER Kayla jameson MD [facility] CPT-30779 Level 4 Est. Patient 16:00:14 NITROCELLULOSE MAKER Tesfaye pearson MD [facility] CPT-58033 Level 4 Est. Patient 11:02:24 NITROCELLULOSE MAKER Tesfaye pearson MD [facility] CPT-86325 Level 3 Est. Patient 20:21:43 NITROCELLULOSE MAKER Kayla jameson MD [facility] CPT-02016 Level 3 Est. Patient 13:27:28 NITROCELLULOSE MAKER Kayla jameson MD [facility] CPT-81905 Level 4 Est. Patient 15:57:17 NITROCELLULOSE MAKER Tesfaye pearson MD [facility] CPT-35188 Level 3 New Patient 13:25:47 CDT Tesfaye kidd MD [facility] CPT-39038 Level 3 New Patient 17:22:21 CDT Kayla angel MD [facility] Procedures Code Procedure Name Date Entry Date Standard Desc ription CPT-G0439 Subsequent Annual Wellness Exam 18:06:36 CDT CPT-G0439 Subsequent Annual Wellness Exam 22:18:11 CDT CPT-93027 Bone Density - XRAY USE ONLY 11:43:58 CDT 2 CPT-31588 Bone Density - XRAY USE ONLY 10:05:16 CDT 2 CPT-05630 Prv Med New Pt 40-64 yrs 18:19:25 CDT 2016 CPT-85264 Foot, right, comp min 3V - XRAY USE ONLY 10:38:34 CDT CPT-G0439 Subsequent Annual Wellness Exam 13:55:04 CDT CPT-G0438 Initial Annual Wellness Exam 11:23:17 CD T CPT-J2930 Solu Medrol 125 mg (Methyl Prednisolone Sodium Succinate) 17:29:12 NITROCELLULOSE MAKER CPT-14764 Abx/Therapy Injection 17:29:11 NITROCELLULOSE MAKER CPT-J2930 Solu Medrol 125 mg (Methyl Prednisolone Sodium Succinate) 12:34:38 NITROCELLULOSE MAKER CPT-J3420 Vitamin B12 1000mcg (Cyanocobalamin) 09:12:55 CDT CPT-J3420 Vitamin B12 1000mcg (Cyanocobalamin) 16:28:06 NITROCELLULOSE MAKER CPT-61201 Venipuncture Draw Fee 08:39:53 CDT CPT-J3420 Vitamin B12 1000mcg (Cyanocobalamin) 08:46:22 CDT CPT-19837 Abx/Therapy Injection 08:46:22 CDT CPT-J3420 Vitamin B12 1000mcg (Cyanocobalamin) 08:41:26 CDT CPT-64494 Abx/Therapy Injection 08:41:26 CDT CPT-J3420 Vitamin B12 1000mcg (Cyanocobalamin) 08:57:15 CDT CPT-51478 Abx/Therapy Injection 08:57:15 CDT CPT-J3420 Vitamin B12 1000mcg (Cyanocobalamin) 10:59:03 CDT CPT-59031 Abx/Therapy Injection 10:59:03 CDT CPT-J3420 Vitamin B12 1000mcg (Cyanocobalamin) 15:05:39 CDT CPT-00858 Abx/Therapy Injection 15:05:39 CDT CPT-J3420 Vitamin B12 1000mcg (Cyanocobalamin) 13:50:45 CDT CPT-J3420 Vitamin B12 1000mcg (Cyanocobalamin) 08:48:55 CDT CPT-15059 Abx/Therapy Injection 08:48:55 CDT CPT-J3420 Vitamin B12 1000mcg (Cyanocobalamin) 09:14:54 CDT CPT-53044 Abx/Therapy Injection 09:14:54 CDT CPT-J3420 Vitamin B12 1000mcg (Cyanocobalamin) 09:06:06 CDT CPT-94779 Abx/Therapy Injection 09:06:06 CDT CPT-J3420 Vitamin B12 1000mcg (Cyanocobalamin) 09:49:14 CDT CPT-11664 Abx/Therapy Injection 09:49:14 CDT CPT-J3420 Vitamin B12 1000mcg (Cyanocobalamin) 09:10:30 NITROCELLULOSE MAKER CPT-25992 Abx/Therapy Injection 09:10:30 NITROCELLULOSE MAKER CPT-J3420 Vitamin B12 1000mcg (Cyanocobalamin) 09:11:07 NITROCELLULOSE MAKER CPT-85433 Abx/Therapy Injection 09:11:07 NITROCELLULOSE MAKER CPT-J3420 Vitamin B12 1000mcg (Cyanocobalamin) 09:57:03 NITROCELLULOSE MAKER CPT-46928 Abx/Therapy Injection 09:57:03 NITROCELLULOSE MAKER CPT-J3420 Vitamin B12 1000mcg (Cyanocobalamin) 09:23:21 NITROCELLULOSE MAKER CPT-90641 Abx/Therapy Injection 09:23:21 NITROCELLULOSE MAKER CPT-08972 Urine Dip (Floor Use Only) 20:21:44 NITROCELLULOSE MAKER 201 02/12/11 CPT-59435 UA Dip Auto (Floor Use Only) 10:04:39 NITROCELLULOSE MAKER 2 CPT-97070 Urine Dip (Floor Use Only) 13:27:28 NITROCELLULOSE MAKER 201 02/12/01 CPT-06589 Bladder Scan 13:27:28 NITROCELLULOSE MAKER CPT-53013 Abd single AP View 14:30:51 NITROCELLULOSE MAKER CPT-OV Office Visit 10:15:43 CDT CPT-11207 Urine Dip (Floor Use Only) 17:22:21 CDT 201 02/09/02 CPT-99821 Bladder Scan 17:22:21 CDT
--- OUTSIDE RECORDS SUMMARY | 2020-05-05 11:24 | XMS REPORT | Clinical Summary ---
Author Author Talon, Jeri Wood Organization [employer] Address Unknown Phone Unavailable Allergies, Adverse Reactions, [...] Routine general medical examination at [facility] acility Sinusitis 461.9 Resolved Tesfaye [...] Routine general medical examination at a [facility] acility Body Mass Index 21.0-21.9 Adult [...] unspecified site Upper respiratory infection 465.9 Inactive Tesafye Sherman MD Acute upper respiratory infections of un specified site Lower extremity edema, bilateral 782.3 Active 201 07/07/09 León Kodi ASSISTANT SCIENTIST Edema Peripheral neuropathy 356.9 Active Tesfaye lamb [...] for rest less leg syndrome. ROPINIROLE HCL 98844197215 No Longer Active MARCUS Panchal Active ROPINIROLE HCL 1 MG ORAL TABLET 1 tab po q hs R OPINIROLE HCL 36398598604 Active MARCUS Maravilla Active ROPINIROLE HCL 0.25 MG ORAL TABLET 1 TAB PO Q HS 05/31 ROPINIROLE HCL 34276780392 No Longer Active Tesfaye Sherman MD Ac tive PREDNISONE 20 MG ORAL TABLET 1 tab twice daily for 3 d ay, then one daily for three days PREDNISONE 02009622041 No Longer Active Tesfaye Sherman MD Active AMITRIPTYLINE HCL 50 MG ORAL TABLET 1 po q hs for sleep AMITRIPTYLINE HCL 62952575336 No Longer Active Tesfaye Sherman MD Active AMITRIPTYLINE HCL 10 MG ORAL TABLET 1 tablet nightly by mout h for neuropathy AMITRIPTYLINE HCL 67228316218 No Longer Active MARCUS Stapleton Active DIFLUCAN 100 MG ORAL TABLET 1 tablet by mouth daily 20 21/03/11 FLUCONAZOLE 21708719454 No Longer Active Tesfaye Sherman MD Acti ve BACTRIM DS 800-160 MG ORAL TABLET 1 tab by mouth twice daily 201 07/08/06 TRIMETHOPRIM-SULFAMETHOXAZOLE 62408088363 No Longer Active Umer Sherman MD Active CLARITIN 10 MG ORAL TABLET Take one by mouth daily LORATADINE 21338944667 Active Tesfaye Sherman MD Active SUDAFED 12 HOUR 120 MG ORAL TABLET EXTENDED RELEASE 12 HOUR 1 pill twice daily if needed for congestion PSEUDOEPHEDRINE HCL 952067953 13 No Longer Active Tesfaye Sherman MD Active FENOFIBRATE 145 MG ORAL TABLET 1 by mouth daily FENOFIBRATE 36012148026 Active Laurence Dominguez Active GABAPENTIN 300 MG ORAL CAPSULE 1 po daily GABAP ENTIN 98836904111 No Longer Active Tesfaye Sherman MD Active HYDROCHLOROTHIAZIDE 12.5 MG ORAL CAPSULE 1 pill by mough daily 2 HYDROCHLOROTHIAZIDE 70824566807 No Longer Active León Kodi ASSISTANT SCIENTIST Active VENLAFAXINE HCL 75 MG ORAL TABLET 1 am 1/ at noon 201 07/07/09 VENLAFAXINE HCL 72913497559 No Longer Active León Kodi ASSISTANT SCIENTIST Act trent DIFLUCAN 100 MG ORAL TABLET 1 tablet by mouth daily 20 19/02/09 FLUCONAZOLE 14801469522 No Longer Active León Kodi ASSISTANT SCIENTIST Active DIFLUCAN 100 MG ORAL TABLET 1 tablet by mouth daily 20 19/02/09 FLUCONAZOLE 77519195158 No Longer Active León Kodi ASSISTANT SCIENTIST Active OXYCODONE-ACETAMINOPHEN 5-325 MG ORAL TABLET Take one tablet by mouth every 6 hours 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 Use sparingly OXYCODONE-ACETAMINOPHEN 29659191083 Active Tesfaye villar MD Active CLONAZEPAM 0.5 MG ORAL TABLET Take 1/2 qam, and 1/2 qpm CLONAZEPAM 04048704139 Active Tesfaye Sherman MD Active PRELIEF 340 (65-50) MG (CA-P) ORAL TABLET CALCIUM GLYCEROPHOSPHATE 95673470015 No Longer Active Tesfaye Sherman MD Active SUDAFED 24 HOUR 240 MG ORAL TABLET EXTENDED RELEASE 24 HOUR 1 tab po daily PSEUDOEPHEDRINE HCL 12335608705 No Longer Active Raul Sherman MD Active RED YEAST RICE 600 MG ORAL CAPSULE 1 pill by mouth daily RED YEAST RICE EXTRACT 53979134284 No Longer Active Tesfaye Sherman MD Active REPHRESH PRO-B ORAL CAPSULE 1 tablet daily LACT OBACILLUS 75831606732 No Longer Active Tesfaye Sherman MD Active ABILIFY 2 MG ORAL TABLET 1 by mouth daily. MARIA ELENA PIPRAZOLE 15654533643 Active Tesfaye Sherman MD Active CYMBALTA 60 MG ORAL CAPSULE DELAYED RELEASE PARTICLES 1 cap by mouth daily for pain DULOXETINE HCL 52697467014 Active MARCUS Lindsay Active DIFLUCAN 100 MG ORAL TABLET 1 tablet by mouth daily 20 20/06/06 FLUCONAZOLE 62809545679 No Longer Active Tesfaye Sherman MD Acti ve PREDNISONE 20 MG ORAL TABLET 1 tablet by mouth twice d aily for 3 days, then 1 tablet daily for 3 days PREDNISONE 80583965736 No L onger Active Tesfaye Sherman MD Active BACTRIM DS 800-160 MG ORAL TABLET 1 tab by mouth twice daily 201 06/09/02 TRIMETHOPRIM-SULFAMETHOXAZOLE 99137077739 No Longer Active Fer Dominguez Active DIFLUCAN 100 MG ORAL TABLET 1 tablet by mouth daily 20 20/05/01 FLUCONAZOLE 73489944909 No Longer Active Tesfaye Sherman MD Acti ve ZITHROMAX 250 MG ORAL TABLET 2 po today, then 1 po q days 2-5 20 20/04/28 AZITHROMYCIN 52524823348 No Longer Active Tesfaye Sherman MD Active MECLIZINE HCL 25 MG ORAL TABLET one tab po qday prn dizziness 20 17/09/06 MECLIZINE HCL 36267347956 No Longer Active Tesfaye Sherman MD Active PROAIR HFA 108 (90 BASE) MCG/ACT INHALATION AEROSOL SO LUTION 1 puff every 6 hours as needed ALBUTEROL SULFATE 64158789111 No Long er Active Tesfaye Sherman MD Active PREDNISONE 20 MG ORAL TABLET 1 tab twice daily for 3 d ay, then one daily for three days PREDNISONE 02090330931 No Longer Active Tesfaye Sherman MD Active MECLIZINE HCL 25 MG ORAL TABLET one 4 times a day as needed for dizziness MECLIZINE HCL 09264647973 Active Tesfaye Sherman MD Active AMOXICILLIN 500 MG ORAL CAPSULE 1 cap by mouth three times a day AMOXICILLIN 40114045822 No Longer Active Laurence Raida Acti ve DIFLUCAN 100 MG ORAL TABLET 1 tablet by mouth daily 20 19/08/26 FLUCONAZOLE 18681700673 No Longer Active Tesfaye Sherman MD Acti ve BACTRIM DS 800-160 MG ORAL TABLET 1 tab by mouth twice daily 201 05/10/28 TRIMETHOPRIM-SULFAMETHOXAZOLE 19813567851 No Longer Active Fer mastersa Angelica Active FOSAMAX 70 MG ORAL TABLET 1 po qweek. Take 30min prio r to first food/drink. Avoid lying down x 1 hour. ALENDRONATE SODIUM 58865635 144 No Longer Active Laurence Dominguez Active CYMBALTA 60 MG ORAL CAPSULE DELAYED RELEASE PARTICLES Take 1 tablet by mouth daily DULOXETINE HCL 68418560145 No Longer Active Edith Burch MD Active CYMBALTA 30 MG ORAL CAPSULE DELAYED RELEASE PARTICLES 1 cap by mouth daily with 60mg DULOXETINE HCL 44609577942 No Longer Active Jordan Burch MD Active FISH OIL 1000 MG ORAL CAPSULE DELAYED RELEASE 1 pill b y mouth daily for cholesterol OMEGA-3 FATTY ACIDS 62807272868 Active Cee Jaffe LPN Active DIFLUCAN 100 MG ORAL TABLET 1 tablet by mouth daily 20 19/03/05 FLUCONAZOLE 47088111435 No Longer Active Tesfaye Sherman MD Acti ve BACTRIM DS 800-160 MG ORAL TABLET 1 tab by mouth twice daily 201 05/06/28 TRIMETHOPRIM-SULFAMETHOXAZOLE 31711768855 No Longer Active Umer Sherman MD Active BACTRIM DS 800-160 MG ORAL TABLET 1 tab by mouth twice daily 201 05/04/15 TRIMETHOPRIM-SULFAMETHOXAZOLE 93000279318 No Longer Active Umer Sherman MD Active DIFLUCAN 150 MG ORAL TABLET 1 tablet by mouth daily 20 18/09/20 FLUCONAZOLE 31993590391 No Longer Active Tesfaye Sherman MD Acti ve BACTRIM DS 800-160 MG ORAL TABLET 1 tab by mouth twice daily 201 04/13/17 TRIMETHOPRIM-SULFAMETHOXAZOLE 70390483934 No Longer Active Umer Sherman MD Active CEFTIN 250 MG ORAL TABLET 1 tablet twice daily x 7 days CEFUROXIME AXETIL 69488962444 No Longer Active Tesfaye Sherman MD Active DIFLUCAN 100 MG ORAL TABLET 1 tablet by mouth every other da y for 2 doses FLUCONAZOLE 25124365052 No Longer Active Tesfaye barron MD Active DIFLUCAN 100 MG ORAL TABLET 1 tablet by mouth daily X 3 DAYS 201 04/09/01 FLUCONAZOLE 29470712893 No Longer Active Rj Lyons tive MIRTAZAPINE 15 MG ORAL TABLET 1/2 tab by mouth at bedtime. 03/13 MIRTAZAPINE 08291808979 No Longer Active Tesfaye Sherman MD Active BACTRIM DS 800-160 MG ORAL TABLET 1 tab by mouth twice daily 201 04/09/01 TRIMETHOPRIM-SULFAMETHOXAZOLE 88117665543 No Longer Active Umer Sherman MD Active PRAMIPEXOLE DIHYDROCHLORIDE 0.125 MG ORAL TABLET take 1 tablet po qhs for restless leg syndrome. PRAMIPEXOLE DIHYDROCHLORI DE 18753857450 No Longer Active Tesfaye Sherman MD Active MAGNESIUM 400 MG ORAL TABLET 1 tab po daily MAGNE SIUM 61024741208 Active Chelsea Cardenas APRN Active CETIRIZINE HCL 5 MG ORAL TABLET Take 1 tablet by mouth daily CETIRIZINE HCL 18769004305 No Longer Active Chelsea Cardenas APRN Activ e TRIMETHOPRIM 100 MG ORAL TABLET 1/2 qd TRIM ETHOPRIM 58451257790 No Longer Active Chelsea Cardenas APRN Active BACTRIM DS 800-160 MG ORAL TABLET 1 tab by mouth twice daily 201 04/04/11 TRIMETHOPRIM-SULFAMETHOXAZOLE 17640047328 No Longer Active Umer Sherman MD Active BACTRIM DS 800-160 MG ORAL TABLET 1 tab by mouth twice daily X 10 DAYS TRIMETHOPRIM-SULFAMETHOXAZOLE 92258403034 No Longer Active Tesfaye Sherman MD Active AMOXICILLIN 500 MG ORAL CAPSULE 1 cap by mouth three times a day AMOXICILLIN 30448909151 No Longer Active Adriana Arredondo, A A ctive B-12 1000 MCG ORAL LOZENGE 1 tab po daily CYANO COBALAMIN 13975250362 Active Tesfaye Sherman MD Active VITAMIN D3 2000 UNIT ORAL TABLET 1 daily, for vitamin D deficien cy CHOLECALCIFEROL 43076264707 No Longer Active Tesfaye Sherman MD Active TIZANIDINE HCL 2 MG ORAL TABLET take 1-2 tablet by [facility] every day at bedtime at 9pm PRN TIZANIDINE HCL 95902248100 Active Tesfaye hewitt MD Active ZITHROMAX 250 MG ORAL TABLET 2 po today, then 1 po q days 2-5 20 15/02/10 AZITHROMYCIN 24873685145 No Longer Active Tesfaye Sherman MD Active BACTRIM DS 800-160 MG ORAL TABLET 1 tab by mouth twice daily 201 03/03/23 TRIMETHOPRIM-SULFAMETHOXAZOLE 16902148439 No Longer Active Umer Sherman MD Active [facility] NIACIN FLUSH FREE 400-100 MG ORAL CAPSULE 1 daily NIACIN-INOSITOL 63122492078 Active Kayla Cooper MD Activ e DIFLUCAN 150 MG ORAL TABLET 1 qd FLUCONAZOL E 24118256563 No Longer Active Kayla Cooper MD Active FLUTICASONE PROPIONATE 50 MCG/ACT NASAL SUSPENSION 1 spray each nostril twice daily FLUTICASONE PROPIONATE 56111952587 Active Umer Sherman MD Active LOVASTATIN 20 MG ORAL TABLET Take 1 tablet by mouth daily LOVASTATIN 25435294855 No Longer Active Tesfaye Sherman MD Acti ve MELOXICAM 7.5 MG ORAL TABLET 1 tablet by mouth daily 2 MELOXICAM 29192974413 No Longer Active Tesfaye Sherman MD Acti ve GABAPENTIN 300 MG ORAL CAPSULE Take two tablets by mouth every e vening GABAPENTIN 79045723812 No Longer Active Edith Burch MD A ctive BACLOFEN 10 MG ORAL TABLET Take one tablet by mouth three times a d ay BACLOFEN 84971861211 Active Kayla Cooper MD Active GABAPENTIN 300 MG ORAL CAPSULE Take two tablets by mouth every e vening GABAPENTIN 300 MG ORAL CAPSULE 728778 GABAPENTIN I nactive MELOXICAM 7.5 MG ORAL TABLET 1 tablet by mouth daily 2 MELOXICAM 7.5 MG ORAL TABLET 974226 MELOXICAM Inactive LOVASTATIN 20 MG ORAL TABLET Take 1 tablet by mouth daily LOVASTATIN 20 MG ORAL TABLET 802215 LOVASTATIN Inactive DIFLUCAN 150 MG ORAL TABLET 1 qd DIFLUCAN 150 MG ORAL TABLET 794261 FLUCONAZOLE Inactive VITAMIN D3 2000 UNIT ORAL TABLET 1 daily, for vitamin D deficien cy VITAMIN D3 2000 UNIT ORAL TABLET CHOLECALCIFEROL Inactive AMOXICILLIN 500 MG ORAL CAPSULE 1 cap by mouth three times a day AMOXICILLIN 500 MG ORAL CAPSULE 059435 AMOXICILLIN Inactive BACTRIM DS 800-160 MG ORAL TABLET 1 tab by mouth twice daily X 10 DAYS BACTRIM DS 800-160 MG ORAL TABLET 194081 TRIMETHOPRIM-SULFAMETHOXAZOLE Inactive TRIMETHOPRIM 100 MG ORAL TABLET 1/2 qd 7 TRIMETHOPRIM 100 MG ORAL TABLET 789826 TRIMETHOPRIM Inactive CETIRIZINE HCL 5 MG ORAL TABLET Take 1 tablet by mouth daily CETIRIZINE HCL 5 MG ORAL TABLET 2177683 CETIRIZINE HCL Inactive PRAMIPEXOLE DIHYDROCHLORIDE 0.125 MG ORAL TABLET take 1 tablet po qhs for restless leg syndrome. PRAMIPEXOLE DIHYD ROCHLORIDE 0.125 MG ORAL TABLET 743577 PRAMIPEXOLE DIHYDROCHLORIDE Inactive MIRTAZAPINE 15 MG ORAL TABLET 1/2 tab by mouth at bedtime. 03/13 MIRTAZAPINE 15 MG ORAL TABLET 731733 MIRTAZAPINE In active DIFLUCAN 100 MG ORAL TABLET 1 tablet by mouth daily X 3 DAYS 201 04/09/01 DIFLUCAN 100 MG ORAL TABLET 195746 FLUCONAZOLE Inac tive DIFLUCAN 100 MG ORAL [...] 30 MG ORAL CAPSULE DELAYED RELEASE PARTICLES 687392 DULOXETINE HCL Inactive CYMBALTA 60 MG ORAL CAPSULE DELAYED RELEASE PARTICLES Take 1 tablet by mouth daily CYMBALTA 60 MG ORAL CAPSULE DELAYED RELEA SE PARTICLES 672823 DULOXETINE HCL Inactive FOSAMAX 70 MG ORAL TABLET 1 po qweek. Take 30min prio r to first food/drink. Avoid lying down x 1 hour. FOSAMAX 70 MG ORAL TA BLET 996170 ALENDRONATE SODIUM Inactive DIFLUCAN 100 MG ORAL TABLET 1 tablet by mouth daily 20 19/08/26 DIFLUCAN 100 MG ORAL TABLET 075328 FLUCONAZOLE Inactive PREDNISONE 20 MG ORAL TABLET 1 tab twice daily for 3 d ay, then one daily for three days PREDNISONE 20 MG ORAL TABLET 174393 PREDNIS ONE Inactive PROAIR HFA 108 (90 BASE) MCG/ACT INHALATION AEROSOL SO LUTION 1 puff every 6 hours as needed PROAIR HFA 108 (90 B ASE) MCG/ACT INHALATION AEROSOL SOLUTION ALBUTEROL SULFATE Inactive MECLIZINE HCL 25 MG ORAL TABLET one tab po qday prn dizziness 20 17/09/06 MECLIZINE HCL 25 MG ORAL TABLET 856702 MECLIZINE HCL Inactive PREDNISONE 20 MG ORAL TABLET 1 tablet by mouth twice d aily for 3 days, then 1 tablet daily for 3 days PREDNISONE 20 MG ORAL TA BLET 711843 PREDNISONE Inactive DIFLUCAN 100 MG ORAL TABLET 1 tablet by mouth daily 20 20/06/06 DIFLUCAN 100 MG ORAL TABLET 679894 FLUCONAZOLE Inactive REPHRESH PRO-B ORAL CAPSULE 1 tablet daily REPHRESH PRO-B ORAL CAPSULE LACTOBACILLUS Inactive RED YEAST RICE 600 MG ORAL CAPSULE 1 pill by mouth daily RED YEAST RICE 600 MG ORAL CAPSULE 877844 RED YEAST RICE EXTRACT In active SUDAFED [...] 20 19/02/09 DIFLUCAN 100 MG ORAL TABLET 085973 FLUCONAZOLE Inactive DIFLUCAN 100 MG ORAL TABLET 1 tablet by mouth daily 20 19/02/09 DIFLUCAN 100 MG ORAL TABLET 869432 FLUCONAZOLE Inactive VENLAFAXINE HCL 75 MG ORAL TABLET 1 am 1/2 at noon 201 07/07/09 VENLAFAXINE HCL 75 MG ORAL TABLET 756107 VENLAFAXINE HCL Inacti ve GABAPENTIN 300 MG ORAL CAPSULE 1 po daily GABAPENTIN 300 MG ORAL CAPSULE 646434 GABAPENTIN Inactive SUDAFED 12 HOUR 120 MG ORAL TABLET EXTENDED RELEASE 12 HOUR 1 pill twice daily if needed for congestion SUDAFED 12 HOUR 120 MG ORAL TABLET EXTENDED RELEASE 12 HOUR PSEUDOEPHEDRINE HCL Inactive AMITRIPTYLINE HCL 10 MG ORAL TABLET 1 tablet nightly by mout h for neuropathy AMITRIPTYLINE HCL 10 MG ORAL TABLET 227501 AMITRIPTYLINE HCL Inactive AMITRIPTYLINE HCL 50 MG ORAL TABLET 1 po q hs for sleep AMITRIPTYLINE HCL 50 MG ORAL TABLET 259633 AMITRIPTYLINE HCL Inac tive PREDNISONE 20 MG ORAL TABLET 1 tab twice daily for 3 d ay, then one daily for three days PREDNISONE 20 MG ORAL TABLET 280789 PREDNIS ONE Inactive ROPINIROLE HCL 0.25 MG ORAL TABLET 1 TAB PO Q HS 05/31 ROPINIROLE HCL 0.25 MG ORAL TABLET 101394 ROPINIROLE HCL Inact trent ROPINIROLE HCL 0.5 MG ORAL TABLET 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 ROPINIROLE HCL 0.5 MG ORAL TABLET 771319 ROPINIR OLE HCL Inactive BACTRIM DS 800-160 MG ORAL TABLET 1 tab by mouth twice daily 201 03/03/23 BACTRIM DS 800-160 MG ORAL TABLET 19830105 TRIMETHOPRIM-SULFAMETHOXAZOLE Inactive ZITHROMAX 250 MG ORAL TABLET 2 po today, then 1 po q days 2-5 20 15/02/10 ZITHROMAX 250 MG ORAL TABLET 049798 AZITHROMYCIN Mayela ctive BACTRIM DS 800-160 MG [...] a day AMOXICILLIN 500 MG ORAL CAPSULE 522782 AMOXICILLIN Inactive ZITHROMAX 250 MG ORAL TABLET 2 po today, then 1 po q days 2-5 20 20/04/28 ZITHROMAX 250 MG ORAL TABLET 752243 AZITHROMYCIN [place] ctive DIFLUCAN 100 MG ORAL TABLET 1 [...] -- NO DECISION MADE DURABLE POWER OF SAP BW BI DEVELOPER FOR HEALTHCARE DISCUSED WITH PATIENT -- FULL [...] Name Value Unit Range Description Lab Report: UADIP W/MICRO, AUTO, Comp. M etabolic Panel, CBC - Chemistry protein, total urine random Negative mg/dL Negative sodium, serum 139 mmol/L 616-271 2150/11/07 carbon dioxide, venous blood 28.4 mmol/L 21.0-32 [...] ative Encounters Code Encounter Date Provider Facility CPT-68831 [id number] Vst-Est Level IV 14:08:03 C BRIDGET Sherman MD [facility] CPT-21121 Level 3 Est. Patient 18:06:36 CDT Tesfaye pearson MD [facility] CPT-95061 [id number] Vst-Est Level IV 17:09:34 C BRIDGET Sherman MD [facility] CPT-70022 Level 3 Est. Patient 17:27:08 CDT León Portillo david [facility] CPT-84237 76896-Epq Vst-Est Level IV 14:00:[address] Tesfaye Sherman MD [facility] CPT-59367 [id number] Vst-Est Level IV 19:27:[address] Tesfaye Sherman MD [facility] CPT-18525 97177-Kpf Vst-Est Level IV 10:41:41 C BRIDGET Sherman MD [facility] CPT-18473 90630-Nig Vst-Est Level III 09:40:56 CDT Tesfaye Sherman MD [facility] CPT-55653 Level 4 Est. Patient 22:18:12 CDT Tesfaye pearson MD [facility] CPT-88127 Level 4 Est. Patient 14:44:33 PACS ADMINISTRATOR Tesfaye pearson MD [facility] CPT-71953 Level 4 Est. Patient 13:55:29 PACS ADMINISTRATOR Tesfaye pearson MD [facility] CPT-82298 Level 4 Est. Patient 17:07:34 PACS ADMINISTRATOR Tesfaye pearson MD [facility] CPT-61117 Level 4 Est. Patient 13:56:54 CDT Tesfaye pearson MD [facility] CPT-57291 Level 4 Est. Patient 13:24:25 CDT Chelsea sanz [facility] CPT-39670 Level 4 Est. Patient 09:14:56 CDT Tesfaye pearson MD [facility] CPT-38102 Level 4 Est. Patient 18:40:25 PACS ADMINISTRATOR Tesfaye pearson MD [facility] CPT-99912 Level 4 Est. Patient 18:13:07 PACS ADMINISTRATOR Tesfaye pearson MD [facility]-87060 Level 3 Est. Patient 10:46:32 CDT Rj cotto DO [facility] CPT-87684 Level 4 Est. Patient 20:19:25 CDT Tesfaye pearson MD [facility]-65242 Level 3 Est. Patient 09:07:31 CDT Tesfaye pearson MD [facility]-62247 Level 4 Est. Patient 13:12:56 CDT Tesfaye pearson MD [facility]-04481 Level 4 Est. Patient 21:24:55 PACS ADMINISTRATOR Tesfaye pearson MD [facility]-65514 Level 3 Est. Patient 13:45:04 PACS ADMINISTRATOR Tesfaye pearson MD [facility] CPT-49902 Level 4 Est. Patient 13:50:45 CDT Tesfaye pearson MD [facility] CPT-26367 Level 3 Est. Patient 10:16:10 CDT Tesfaye pearson MD [facility] CPT-20760 Level 3 Est. Patient 16:36:07 PACS ADMINISTRATOR Kayla jameson MD [facility]-64594 Level 4 Est. Patient 16:00:14 PACS ADMINISTRATOR Tesfaye pearson MD [facility]-72495 Level 4 Est. Patient 11:02:24 PACS ADMINISTRATOR Tesfaye pearson MD [facility]-14230 Level 3 Est. Patient 20:21:43 PACS ADMINISTRATOR Kayla jameson MD [facility]-38609 Level 3 Est. Patient 13:27:28 PACS ADMINISTRATOR Kayla jameson MD [facility]-04175 Level 4 Est. Patient 15:57:17 PACS ADMINISTRATOR Tesfaye pearson MD [facility] CPT-45398 Level 3 New Patient 13:25:47 CDT Tesfaye kidd MD [facility] CPT-55861 Level 3 New Patient 17:22:21 CDT Kayla angel MD [facility] Procedures Code Procedure Name Date Entry Date Standard Desc ription CPT-G0439 Subsequent Annual Wellness Exam 18:06:36 CDT CPT-G0439 Subsequent Annual Wellness Exam 22:18:11 CDT CPT-32082 Bone Density - XRAY USE ONLY 11:43:58 CDT 2 CPT-11383 Bone Density - XRAY USE ONLY 10:05:16 CDT 2 CPT-82782 Prv Med New Pt 40-64 yrs 18:19:25 CDT 2016 CPT-22702 Foot, right, comp min 3V - XRAY USE ONLY 10:38:34 CDT CPT-G0439 Subsequent Annual Wellness Exam 13:55:04 CDT CPT-G0438 Initial Annual Wellness Exam 11:23:17 CD T CPT-J2930 Solu Medrol 125 mg (Methyl Prednisolone Sodium Succinate) 17:29:12 PACS ADMINISTRATOR CPT-16510 Abx/Therapy Injection 17:29:11 PACS ADMINISTRATOR CPT-J2930 Solu Medrol 125 mg (Methyl Prednisolone Sodium Succinate) 12:34:38 PACS ADMINISTRATOR CPT-J3420 Vitamin B12 1000mcg (Cyanocobalamin) 09:12:55 CDT CPT-J3420 Vitamin B12 1000mcg (Cyanocobalamin) 16:28:06 PACS ADMINISTRATOR CPT-96801 Venipuncture Draw Fee 08:39:53 CDT CPT-J3420 Vitamin B12 1000mcg (Cyanocobalamin) 08:46:22 CDT CPT-41564 Abx/Therapy Injection 08:46:22 CDT CPT-J3420 Vitamin B12 1000mcg (Cyanocobalamin) 08:41:26 CDT CPT-67586 Abx/Therapy Injection 08:41:26 CDT CPT-J3420 Vitamin B12 1000mcg (Cyanocobalamin) 08:57:15 CDT CPT-72861 Abx/Therapy Injection 08:57:15 CDT CPT-J3420 Vitamin B12 1000mcg (Cyanocobalamin) 10:59:03 CDT CPT-63220 Abx/Therapy Injection 10:59:03 CDT CPT-J3420 Vitamin B12 1000mcg (Cyanocobalamin) 15:05:39 CDT CPT-23881 Abx/Therapy Injection 15:05:39 CDT CPT-J3420 Vitamin B12 1000mcg (Cyanocobalamin) 13:50:45 CDT CPT-J3420 Vitamin B12 1000mcg (Cyanocobalamin) 08:48:55 CDT CPT-50774 Abx/Therapy Injection 08:48:55 CDT CPT-J3420 Vitamin B12 1000mcg (Cyanocobalamin) 09:14:54 CDT CPT-31742 Abx/Therapy Injection 09:14:54 CDT CPT-J3420 Vitamin B12 1000mcg (Cyanocobalamin) 09:06:06 CDT CPT-30349 Abx/Therapy Injection 09:06:06 CDT CPT-J3420 Vitamin B12 1000mcg (Cyanocobalamin) 09:49:14 CDT CPT-12694 Abx/Therapy Injection 09:49:14 CDT CPT-J3420 Vitamin B12 1000mcg (Cyanocobalamin) 09:10:30 PACS ADMINISTRATOR CPT-94750 Abx/Therapy Injection 09:10:30 PACS ADMINISTRATOR CPT-J3420 Vitamin B12 1000mcg (Cyanocobalamin) 09:11:07 PACS ADMINISTRATOR CPT-40998 Abx/Therapy Injection 09:11:07 PACS ADMINISTRATOR CPT-J3420 Vitamin B12 1000mcg (Cyanocobalamin) 09:57:03 PACS ADMINISTRATOR CPT-34047 Abx/Therapy Injection 09:57:03 PACS ADMINISTRATOR CPT-J3420 Vitamin B12 1000mcg (Cyanocobalamin) 09:23:21 PACS ADMINISTRATOR CPT-01845 Abx/Therapy Injection 09:23:21 PACS ADMINISTRATOR CPT-30318 Urine Dip (Floor Use Only) 20:21:44 PACS ADMINISTRATOR 201 02/12/11 CPT-89730 UA Dip Auto (Floor Use Only) 10:04:39 PACS ADMINISTRATOR 2 CPT-75650 Urine Dip (Floor Use Only) 13:27:28 PACS ADMINISTRATOR 201 02/12/01 CPT-25903 Bladder Scan 13:27:28 PACS ADMINISTRATOR CPT-53556 Abd single AP View 14:30:51 PACS ADMINISTRATOR CPT-OV Office Visit 10:15:43 CDT CPT-30042 Urine Dip (Floor Use Only) 17:22:21 CDT 201 02/09/02 CPT-44407 Bladder Scan 17:22:21 CDT
--- NOTE | 2020-05-05 11:25 | NUR ---
SEE LIST FOR CURRENT MEDS
--- OUTSIDE RECORDS SUMMARY | 2020-05-05 11:25 | XMS REPORT | Clinical Summary ---
Author Author Talon, Jeri Wood Organization [employer] Address Unknown Phone Unavailable Allergies, Adverse Reactions, [...] Sherman MD Routine general medical examination at [facility] Sinusitis 461.9 Resolved Tesfaye Sherman MD Acute sinusitis, unspecified B12 deficiency 266.2 Active Tesfaye Sherman MD Other B- complex deficiencies Dysuria 788.1 Resolved Tesfaye Sherman MD Dysuria Sinusitis 473.9 Resolved Tesfaye Sherman MD Unspecified sinusitis (chronic) Dysuria 788.1 Resolved eTsfaye Sherman MD Dysuria Yeast infection 112.9 Active [...] MD Dysuria Depression, major, recurrent 296.30 Refinement Tesfaey Sherman MD Major depressive disorder, recurrent epi [...] Routine general medical examination at a [facility] Body Mass Index 21.0-21.9 [...] a health care facility Fibromyalgia 729.1 Active eTsfaye Sherman MD Myalgia and myositis, unspecified Personal [...] Tesfaye Sherman MD Dysuria High risk meds care home use V58.6 Active Tesfaye Sherman MD Long-term (current) drug use Yeast infection 112.9 Inactive Tesfaye Sherman MD Candidiasis of unspecified site Upper respiratory infection 465.9 Inactive Tesfaye Sherman MD Acute upper respiratory infections of un specified site Lower extremity edema, bilateral 782.3 Active 201 07/07/09 León Kodi ASSISTANT PROFESSOR OF PSYCHOLOGY Edema Peripheral neuropathy 356.9 Active Tesfaye lamb [...] Mass Index 20.0-20.9 Adult Inactiv jim Shah Fer Dysuria ICD-788.1 Inactive Tesfaye Sherman MD 201 07/05/07 Yeast infection ICD-112.9 Inactive Tesfaye lamb MD Upper respiratory infection ICD-465.9 Inactive Tesfaye Sherman MD FH Depression ICD-V17.0 Inactive Tesfaye Sherman MD Medication List Medication Instructions Start Date Stop Date Generic Name NDC Status Provider Patient Instruction ROPINIROLE HCL 0.25 MG ORAL TABLET 1 TAB PO Q HS 05/31 ROPINIROLE HCL [id number] No Longer Active Tesfaye Sherman MD Ac tive ROPINIROLE HCL 0.5 MG ORAL TABLET 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 ROPINIROLE HCL 09922692632 Active Tesfaye Sherman MD Active PREDNISONE 20 MG ORAL TABLET 1 tab twice daily for 3 d ay, then one daily for three days PREDNISONE 05820049737 No Longer Active Tesfaye Sherman MD Active AMITRIPTYLINE HCL 50 MG ORAL TABLET 1 po q hs for sleep AMITRIPTYLINE HCL 02194727261 No Longer Active Tesfaye Sherman MD Active AMITRIPTYLINE HCL 10 MG ORAL TABLET 1 tablet nightly by mout h for neuropathy AMITRIPTYLINE HCL 39073410012 No Longer Active MARCUS Stapleton Active DIFLUCAN 100 MG ORAL TABLET 1 tablet by mouth daily 20 21/03/11 FLUCONAZOLE 38736657944 No Longer Active Tesfaye Sherman MD Acti ve BACTRIM DS 800-160 MG ORAL TABLET 1 tab by mouth twice daily 201 07/08/06 TRIMETHOPRIM-SULFAMETHOXAZOLE 93253344740 No Longer Active Umer Sherman MD Active CLARITIN 10 MG ORAL TABLET Take one by mouth daily LORATADINE 72514911444 Active Tesfaye Sherman MD Active SUDAFED 12 HOUR 120 MG ORAL TABLET EXTENDED RELEASE 12 HOUR 1 pill twice daily if needed for congestion PSEUDOEPHEDRINE HCL 167040065 13 No Longer Active Tesfaye Sherman MD Active FENOFIBRATE 145 MG ORAL TABLET 1 by mouth daily FENOFIBRATE 14668412878 Active Laurence Dominguez Active GABAPENTIN 300 MG ORAL CAPSULE 1 po daily GABAP ENTIN 61923963286 No Longer Active Tesfaye Sherman MD Active HYDROCHLOROTHIAZIDE 12.5 MG ORAL CAPSULE 1 pill by mough daily 2 HYDROCHLOROTHIAZIDE 88259128616 No Longer Active León Mariee APRN Active VENLAFAXINE HCL 75 MG ORAL TABLET 1 am 1/2 at noon 201 07/07/09 VENLAFAXINE HCL 62069992558 No Longer Active León Mariee APRN Act trent DIFLUCAN 100 MG ORAL TABLET 1 tablet by mouth daily 20 19/02/09 FLUCONAZOLE 52363797916 No Longer Active León Kodi ASSISTANT PROFESSOR OF PSYCHOLOGY Active DIFLUCAN 100 MG ORAL TABLET 1 tablet by mouth daily 20 19/02/09 FLUCONAZOLE 58112823543 No Longer Active León Mariee APRN Active OXYCODONE-ACETAMINOPHEN 5-325 MG ORAL TABLET Take one tablet by mouth every 6 hours 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 Use sparingly OXYCODONE-ACETAMINOPHEN 64427800000 Active Tesfaye villar MD Active CLONAZEPAM 0.5 MG ORAL TABLET Take 1/2 qam, and 1/2 qpm CLONAZEPAM 16136294886 Active Tesfaye Sherman MD Active PRELIEF 340 (65-50) MG (CA-P) ORAL TABLET CALCIUM GLYCEROPHOSPHATE 48478991320 No Longer Active Tesfaye Shreman MD Active SUDAFED 24 HOUR 240 MG ORAL TABLET EXTENDED RELEASE 24 HOUR 1 tab po daily PSEUDOEPHEDRINE HCL 19380659064 No Longer Active Raul Sherman MD Active RED YEAST RICE 600 MG ORAL CAPSULE 1 pill by mouth daily RED YEAST RICE EXTRACT 46631314875 No Longer Active Tesfaye Sherman MD Active REPHRESH PRO-B ORAL CAPSULE 1 tablet daily LACT OBACILLUS 12746492865 No Longer Active Tesfaye Sherman MD Active ABILIFY 2 MG ORAL TABLET 1 by mouth daily. MARIA ELENA PIPRAZOLE 83248257544 Active Tesfaye Sherman MD Active CYMBALTA 60 MG ORAL CAPSULE DELAYED RELEASE PARTICLES 1 cap by mouth daily for pain DULOXETINE HCL 03862965297 Active MARCUS Lindsay Active DIFLUCAN 100 MG ORAL TABLET 1 tablet by mouth daily 20 20/06/06 FLUCONAZOLE 81982417339 No Longer Active Tesfaye Sherman MD Acti ve PREDNISONE 20 MG ORAL TABLET 1 tablet by mouth twice d aily for 3 days, then 1 tablet daily for 3 days PREDNISONE 31022189211 No L onger Active Tesfaye Sherman MD Active BACTRIM DS 800-160 MG ORAL TABLET 1 tab by mouth twice daily 201 06/09/02 TRIMETHOPRIM-SULFAMETHOXAZOLE 19152283868 No Longer Active Fer Dominguez Active DIFLUCAN 100 MG ORAL TABLET 1 tablet by mouth daily 20 20/05/01 FLUCONAZOLE 39481354621 No Longer Active Tesfaye Sherman MD Acti ve ZITHROMAX 250 MG ORAL TABLET 2 po today, then 1 po q days 2-5 20 20/04/28 AZITHROMYCIN 98490635461 No Longer Active Tesfaye Sherman MD Active MECLIZINE HCL 25 MG ORAL TABLET one tab po qday prn dizziness 20 17/09/06 MECLIZINE HCL 74648209878 No Longer Active Tesfaye Sherman MD Active PROAIR HFA 108 (90 BASE) MCG/ACT INHALATION AEROSOL SO LUTION 1 puff every 6 hours as needed ALBUTEROL SULFATE 13607165962 No Long er Active Tesfaye Sherman MD Active PREDNISONE 20 MG ORAL TABLET 1 tab twice daily for 3 d ay, then one daily for three days PREDNISONE 35539544699 No Longer Active Tesfaye Sherman MD Active MECLIZINE HCL 25 MG ORAL TABLET one 4 times a day as needed for dizziness MECLIZINE HCL 85802177168 Active Tesfaye Sherman MD Active AMOXICILLIN 500 MG ORAL CAPSULE 1 cap by mouth three times a day AMOXICILLIN 53765475096 No Longer Active Laurence Raida Acti ve DIFLUCAN 100 MG ORAL TABLET 1 tablet by mouth daily 20 19/08/26 FLUCONAZOLE 74457497376 No Longer Active Tesfaye Sherman MD Acti ve BACTRIM DS 800-160 MG ORAL TABLET 1 tab by mouth twice daily 201 05/10/28 TRIMETHOPRIM-SULFAMETHOXAZOLE 24547100854 No Longer Active A mirna Dominguez Active FOSAMAX 70 MG ORAL TABLET 1 po qweek. Take 30min prio r to first food/drink. Avoid lying down x 1 hour. ALENDRONATE SODIUM 74383419 144 No Longer Active Laurenceyohana Dominguez Active CYMBALTA 60 MG ORAL CAPSULE DELAYED RELEASE PARTICLES Take 1 tablet by mouth daily DULOXETINE HCL 10674283650 No Longer Active Edith Burch MD Active CYMBALTA 30 MG ORAL CAPSULE DELAYED RELEASE PARTICLES 1 cap by mouth daily with 60mg DULOXETINE HCL 36263655350 No Longer Active Jordan Burch MD Active FISH OIL 1000 MG ORAL CAPSULE DELAYED RELEASE 1 pill b y mouth daily for cholesterol OMEGA-3 FATTY ACIDS 49056939180 Active Cee Jaffe LPN Active DIFLUCAN 100 MG ORAL TABLET 1 tablet by mouth daily 20 19/03/05 FLUCONAZOLE 24754996661 No Longer Active Tesfaye Sherman MD Acti ve BACTRIM DS 800-160 MG ORAL TABLET 1 tab by mouth twice daily 201 05/06/28 TRIMETHOPRIM-SULFAMETHOXAZOLE 69962653913 No Longer Active Umer Sherman MD Active BACTRIM DS 800-160 MG ORAL TABLET 1 tab by mouth twice daily 201 05/04/15 TRIMETHOPRIM-SULFAMETHOXAZOLE 89926277598 No Longer Active Umer Sherman MD Active DIFLUCAN 150 MG ORAL TABLET 1 tablet by mouth daily 20 18/09/20 FLUCONAZOLE 79785041222 No Longer Active Tesfaye Sherman MD Acti ve BACTRIM DS 800-160 MG ORAL TABLET 1 tab by mouth twice daily 201 04/13/17 TRIMETHOPRIM-SULFAMETHOXAZOLE 57065585473 No Longer Active Umer Sherman MD Active CEFTIN 250 MG ORAL TABLET 1 tablet twice daily x 7 days CEFUROXIME AXETIL 22144151307 No Longer Active Tesfaye Sherman MD Active DIFLUCAN 100 MG ORAL TABLET 1 tablet by mouth every other da y for 2 doses FLUCONAZOLE 57631341109 No Longer Active Tesfaye barron MD Active DIFLUCAN 100 MG ORAL TABLET 1 tablet by mouth daily X 3 DAYS 201 04/09/01 FLUCONAZOLE 08160742225 No Longer Active Rj Moss DO Ac tive MIRTAZAPINE 15 MG ORAL TABLET 1/2 tab by mouth at bedtime. 03/13 MIRTAZAPINE 28794309381 No Longer Active Tesfaye Sherman MD Active BACTRIM DS 800-160 MG ORAL TABLET 1 tab by mouth twice daily 201 04/09/01 TRIMETHOPRIM-SULFAMETHOXAZOLE 61562436150 No Longer Active Umer Sherman MD Active PRAMIPEXOLE DIHYDROCHLORIDE 0.125 MG ORAL TABLET take 1 tablet po qhs for restless leg syndrome. PRAMIPEXOLE DIHYDROCHLORI DE 66686720295 No Longer Active Tesfaye Sherman MD Active MAGNESIUM 400 MG ORAL TABLET 1 tab po daily MAGNE SIUM 83305560880 Active Chelsea Cardenas APRN Active CETIRIZINE HCL 5 MG ORAL TABLET Take 1 tablet by mouth daily CETIRIZINE HCL 11972787475 No Longer Active Chelsea Cardenas APRN Activ e TRIMETHOPRIM 100 MG ORAL TABLET 1/2 qd TRIM ETHOPRIM 43812323684 No Longer Active Chelsea Cardenas APRN Active BACTRIM DS 800-160 MG ORAL TABLET 1 tab by mouth twice daily 201 04/04/11 TRIMETHOPRIM-SULFAMETHOXAZOLE 60447387951 No Longer Active Umer Sherman MD Active BACTRIM DS 800-160 MG ORAL TABLET 1 tab by mouth twice daily X 10 DAYS TRIMETHOPRIM-SULFAMETHOXAZOLE 87243328402 No Longer Active Tesfaye Sherman MD Active AMOXICILLIN 500 MG ORAL CAPSULE 1 cap by mouth three times a day AMOXICILLIN 24420658610 No Longer Active Adriana Arredondo, A A ctive B-12 1000 MCG ORAL LOZENGE 1 tab po daily CYANO COBALAMIN 18315587728 Active Tesfaye Sherman MD Active VITAMIN D3 2000 UNIT ORAL TABLET 1 daily, for vitamin D deficien cy CHOLECALCIFEROL 30251600146 No Longer Active Tesfaye Sherman MD Active TIZANIDINE HCL 2 MG ORAL TABLET take 1-2 tablet by mo [facility] every day at bedtime at 9pm PRN TIZANIDINE HCL 71332761392 Active Tesfaye hewitt MD Active ZITHROMAX 250 MG ORAL TABLET 2 po today, then 1 po q days 2-5 20 15/02/10 AZITHROMYCIN 16270833747 No Longer Active Tesfaye Sherman MD Active BACTRIM DS 800-160 MG ORAL TABLET 1 tab by mouth twice daily 201 03/03/23 TRIMETHOPRIM-SULFAMETHOXAZOLE 14161089895 No Longer Active Umer Sherman MD Active [facility] NIACIN FLUSH FREE 400-100 MG ORAL CAPSULE 1 daily NIACIN-INOSITOL 95143965101 Active Kayla Cooper MD Activ e DIFLUCAN 150 MG ORAL TABLET 1 qd FLUCONAZOL E 07871715999 No Longer Active Kayla Cooper MD Active FLUTICASONE PROPIONATE 50 MCG/ACT NASAL SUSPENSION 1 spray each nostril twice daily FLUTICASONE PROPIONATE 80807052025 Active Umer Sherman MD Active LOVASTATIN 20 MG ORAL TABLET Take 1 tablet by mouth daily LOVASTATIN 24840079831 No Longer Active Tesfaye Sherman MD Acti ve MELOXICAM 7.5 MG ORAL TABLET 1 tablet by mouth daily 2 MELOXICAM 55740104132 No Longer Active Tesfaye Sherman MD Acti ve GABAPENTIN 300 MG ORAL CAPSULE Take two tablets by mouth every e vening GABAPENTIN 67466923482 No Longer Active Edith Burch MD A ctive BACLOFEN 10 MG ORAL TABLET Take one tablet by mouth three times a d ay BACLOFEN 28033718724 Active J John Cooper MD Active GABAPENTIN 300 MG ORAL CAPSULE Take two tablets by mouth every e vening GABAPENTIN 300 MG ORAL CAPSULE 469455 GABAPENTIN I nactive MELOXICAM 7.5 MG ORAL TABLET 1 tablet by mouth daily 2 MELOXICAM 7.5 MG ORAL TABLET 555871 MELOXICAM Inactive LOVASTATIN 20 MG ORAL TABLET Take 1 tablet by mouth daily LOVASTATIN 20 MG ORAL TABLET 164637 LOVASTATIN Inactive DIFLUCAN 150 MG ORAL TABLET 1 qd DIFLUCAN 150 MG ORAL TABLET 406033 FLUCONAZOLE Inactive VITAMIN D3 2000 UNIT ORAL TABLET 1 daily, for vitamin D deficien cy VITAMIN D3 2000 UNIT ORAL TABLET CHOLECALCIFEROL Inactive AMOXICILLIN 500 MG ORAL CAPSULE 1 cap by mouth three times a day AMOXICILLIN 500 MG ORAL CAPSULE 052682 AMOXICILLIN Inactive BACTRIM DS 800-160 MG ORAL TABLET 1 tab by mouth twice daily X 10 DAYS BACTRIM DS 800-160 MG ORAL TABLET 346757 TRIMETHOPRIM-SULFAMETHOXAZOLE Inactive TRIMETHOPRIM 100 MG ORAL TABLET 1/2 qd 7 TRIMETHOPRIM 100 MG ORAL TABLET 436524 TRIMETHOPRIM Inactive CETIRIZINE HCL 5 MG ORAL TABLET Take 1 tablet by mouth daily CETIRIZINE HCL 5 MG ORAL TABLET 0556585 CETIRIZINE HCL Inactive PRAMIPEXOLE DIHYDROCHLORIDE 0.125 MG ORAL TABLET take 1 tablet po qhs for restless leg syndrome. PRAMIPEXOLE DIHYD ROCHLORIDE 0.125 MG ORAL TABLET 867130 PRAMIPEXOLE DIHYDROCHLORIDE Inactive MIRTAZAPINE 15 MG ORAL TABLET 1/2 tab by mouth at bedtime. 03/13 MIRTAZAPINE 15 MG ORAL TABLET 608881 MIRTAZAPINE In active DIFLUCAN 100 MG ORAL [...] 30 MG ORAL CAPSULE DELAYED RELEASE PARTICLES 551601 DULOXETINE HCL Inactive CYMBALTA 60 MG ORAL CAPSULE DELAYED RELEASE PARTICLES Take 1 tablet by mouth daily CYMBALTA 60 MG ORAL CAPSULE DELAYED RELEA SE PARTICLES 506424 DULOXETINE HCL Inactive FOSAMAX 70 MG ORAL TABLET 1 po qweek. Take 30min prio r to first food/drink. Avoid lying down x 1 hour. FOSAMAX 70 MG ORAL TA BLET 540489 ALENDRONATE SODIUM Inactive DIFLUCAN 100 MG ORAL TABLET 1 tablet by mouth daily 19/08/26 DIFLUCAN 100 MG ORAL TABLET 831527 FLUCONAZOLE Inactive PREDNISONE 20 MG ORAL TABLET 1 tab twice daily for 3 d ay, then one daily for three days PREDNISONE 20 MG ORAL TABLET 567876 PREDNIS ONE Inactive PROAIR HFA 108 (90 BASE) MCG/ACT INHALATION AEROSOL SO LUTION 1 puff every 6 hours as needed PROAIR HFA 108 (90 B ASE) MCG/ACT INHALATION AEROSOL SOLUTION ALBUTEROL SULFATE Inactive MECLIZINE HCL 25 MG ORAL TABLET one tab po qday prn dizziness 20 17/09/06 MECLIZINE HCL 25 MG ORAL TABLET 945943 MECLIZINE HCL Inactive PREDNISONE 20 MG ORAL TABLET 1 tablet by mouth twice d aily for 3 days, then 1 tablet daily for 3 days PREDNISONE 20 MG ORAL TA BLET 740126 PREDNISONE Inactive DIFLUCAN 100 MG ORAL TABLET 1 tablet by mouth daily 20 20/06/06 DIFLUCAN 100 MG ORAL TABLET 478614 FLUCONAZOLE Inactive REPHRESH PRO-B ORAL CAPSULE 1 tablet daily REPHRESH PRO-B ORAL CAPSULE LACTOBACILLUS Inactive RED YEAST RICE 600 MG ORAL CAPSULE 1 pill by mouth daily RED YEAST RICE 600 MG ORAL CAPSULE 569544 RED YEAST RICE EXTRACT In active SUDAFED [...] 20 19/02/09 DIFLUCAN 100 MG ORAL TABLET 936099 FLUCONAZOLE Inactive DIFLUCAN 100 MG ORAL TABLET 1 tablet by mouth daily 20 19/02/09 DIFLUCAN 100 MG ORAL TABLET 248422 FLUCONAZOLE Inactive VENLAFAXINE HCL 75 MG ORAL TABLET 1 am 1/2 at noon 201 07/07/09 VENLAFAXINE HCL 75 MG ORAL TABLET 732110 VENLAFAXINE HCL Inacti ve GABAPENTIN 300 MG ORAL CAPSULE 1 po daily GABAPENTIN 300 MG ORAL CAPSULE 872764 GABAPENTIN Inactive SUDAFED 12 HOUR 120 MG ORAL TABLET EXTENDED RELEASE 12 HOUR 1 pill twice daily if needed for congestion SUDAFED 12 HOUR 120 MG ORAL TABLET EXTENDED RELEASE 12 HOUR PSEUDOEPHEDRINE HCL Inactive AMITRIPTYLINE HCL 10 MG ORAL TABLET 1 tablet nightly by mout h for neuropathy AMITRIPTYLINE HCL 10 MG ORAL TABLET 841305 AMITRIPTYLINE HCL Inactive AMITRIPTYLINE HCL 50 MG ORAL TABLET 1 po q hs for sleep AMITRIPTYLINE HCL 50 MG ORAL TABLET 459843 AMITRIPTYLINE HCL Inac tive PREDNISONE 20 MG ORAL TABLET 1 tab twice daily for 3 d ay, then one daily for three days PREDNISONE 20 MG ORAL TABLET 630446 PREDNIS ONE Inactive ROPINIROLE HCL 0.25 MG ORAL TABLET 1 TAB PO Q HS 05/31 ROPINIROLE HCL 0.25 MG ORAL TABLET 761981 ROPINIROLE HCL Inact trent BACTRIM DS 800-160 MG ORAL TABLET 1 tab by mouth twice daily 201 03/03/23 BACTRIM DS 800-160 MG ORAL TABLET 19830105 TRIMETHOPRIM-SULFAMETHOXAZOLE Inactive ZITHROMAX 250 MG ORAL TABLET 2 po today, then 1 po q days 2-5 20 15/02/10 ZITHROMAX 250 MG ORAL TABLET 356577 AZITHROMYCIN [place] ctive BACTRIM DS 800-160 MG ORAL TABLET 1 tab by mouth twice daily 201 04/04/11 BACTRIM DS 800-160 MG ORAL TABLET 19830105 TRIMETHOPRIM-SULFAMETHOXAZOLE Inactive BACTRIM DS 800-160 MG ORAL TABLET 1 tab by mouth twice daily 201 04/09/01 BACTRIM DS 800-160 MG ORAL TABLET 792038 TRIMETHOPRIM-SULFAMETHOXAZOLE Inactive BACTRIM DS 800-160 MG ORAL TABLET 1 tab by mouth twice daily 201 04/13/17 BACTRIM DS 800-160 MG ORAL TABLET 279447 TRIMETHOPRIM-SULFAMETHOXAZOLE Inactive DIFLUCAN 150 MG ORAL TABLET [...] 05/06/28 BACTRIM DS 800-160 MG ORAL TABLET 500913 TRIMETHOPRIM-SULFAMETHOXAZOLE Inactive DIFLUCAN 100 MG ORAL TABLET 1 tablet by mouth daily 20 19/03/05 DIFLUCAN 100 MG ORAL TABLET 19760711 FLUCONAZOLE Inactive BACTRIM DS 800-160 MG ORAL TABLET 1 tab by mouth twice daily 201 05/10/28 BACTRIM DS 800-160 MG ORAL TABLET 19830105 TRIMETHOPRIM-SULFAMETHOXAZOLE Inactive AMOXICILLIN 500 MG ORAL CAPSULE 1 cap by mouth three times a day AMOXICILLIN 500 MG ORAL CAPSULE 775216 AMOXICILLIN Inactive ZITHROMAX 250 MG ORAL TABLET 2 po today, then 1 po q days 2-5 20 20/04/28 ZITHROMAX 250 MG ORAL TABLET 511090 AZITHROMYCIN [place] ctive DIFLUCAN 100 MG ORAL TABLET 1 tablet by mouth daily 20 20/05/01 DIFLUCAN 100 MG ORAL TABLET 817004 FLUCONAZOLE Inactive BACTRIM DS 800-160 MG ORAL TABLET 1 tab by mouth twice daily 201 06/09/02 BACTRIM DS 800-160 MG ORAL TABLET 222657 TRIMETHOPRIM-SULFAMETHOXAZOLE Inactive HYDROCHLOROTHIAZIDE 12.5 MG ORAL CAPSULE 1 pill by mough daily 2 HYDROCHLOROTHIAZIDE 12.5 MG ORAL CAPSULE HYDROCH LOROTHIAZIDE Inactive BACTRIM DS 800-160 MG ORAL TABLET 1 tab by mouth twice daily 201 07/08/06 BACTRIM DS 800-160 MG ORAL TABLET 200730 TRIMETHOPRIM-SULFAMETHOXAZOLE Inactive DIFLUCAN 100 MG ORAL TABLET 1 tablet by mouth daily 20 21/03/11 DIFLUCAN 100 MG ORAL TABLET 624999 FLUCONAZOLE Inactive Advance Directives Directive Description Start Date PERMISSION TO SHARE DISCUSSED WITH PATIENT -- NO DECISION MADE DURABLE POWER OF PROGRAM CLERK FOR HEALTHCARE DISCUSED WITH PATIENT -- FULL [...] Negative mg/dL Negative sodium, serum 139 mmol/L 968-200 4335/11/07 carbon dioxide, venous blood 28.4 mmol/L 21.0-32 [...] ative Encounters Code Encounter Date Provider Facility CPT-01307 [id number] Vst-Est Level IV 14:08:03 C BRIDGET Sherman MD [facility] CPT-34657 Level 3 Est. Patient 18:06:36 CDT Tesfaye pearson MD [facility] CPT-31014 [id number] Vst-Est Level IV 17:09:34 C BRIDGET Sherman MD [facility] CPT-16575 Level 3 Est. Patient 17:27:08 CDT León Tin dle [facility]-16767 [id number] Vst-Est Level IV 14:00:[address] Tesfaye Sherman MD [facility]-59735 [id number] Vst-Est Level IV 19:27:[address] Tesfaye Sherman MD [facility]-92999 [id number] Vst-Est Level IV 10:41:41 C BRIDGET Sherman MD [facility]-91396 53316-Mri Vst-Est Level III 09:40:56 CDT Tesfaye Sherman MD [facility] CPT-90654 Level 4 Est. Patient 22:18:12 CDT Tesfaye pearson MD [facility] CPT-97657 Level 4 Est. Patient 14:44:33 FIELD SUPPORT REP Tesfaye pearson MD [facility] CPT-80594 Level 4 Est. Patient 13:55:29 FIELD SUPPORT REP Tesfaye pearson MD [facility] CPT-58205 Level 4 Est. Patient 17:07:34 FIELD SUPPORT REP Tesfaye pearson MD [facility] CPT-06006 Level 4 Est. Patient 13:56:54 CDT Tesfaye pearson MD [facility] CPT-81418 Level 4 Est. Patient 13:24:25 CDT Chelsea sanz [facility] CPT-72979 Level 4 Est. Patient 09:14:56 CDT Tesfaye pearson MD [facility] CPT-38680 Level 4 Est. Patient 18:40:25 FIELD SUPPORT REP Tesfaye pearson MD [facility] CPT-09033 Level 4 Est. Patient 18:13:07 FIELD SUPPORT REP Tesfaye pearson MD [facility] CPT-75785 Level 3 Est. Patient 10:46:32 CDT Rj cotto DO [facility] CPT-14571 Level 4 Est. Patient 20:19:25 CDT Tesfaye pearson MD [facility] CPT-28039 Level 3 Est. Patient 09:07:31 CDT Tesfaye pearson MD [facility] CPT-61882 Level 4 Est. Patient 13:12:56 CDT Tesfaye pearson MD [facility] CPT-15704 Level 4 Est. Patient 21:24:55 FIELD SUPPORT REP Tesfaye pearson MD [facility] CPT-80724 Level 3 Est. Patient 13:45:04 FIELD SUPPORT REP Tesfaye pearson MD [facility] CPT-10645 Level 4 Est. Patient 13:50:45 CDT Tesfaye pearson MD [facility] CPT-72270 Level 3 Est. Patient 10:16:10 CDT Tesfaye pearson MD [facility] CPT-92102 Level 3 Est. Patient 16:36:07 FIELD SUPPORT REP Kayla jameson MD [facility] CPT-41407 Level 4 Est. Patient 16:00:14 FIELD SUPPORT REP Tesfaye pearson MD [facility] CPT-02404 Level 4 Est. Patient 11:02:24 FIELD SUPPORT REP Tesfaye pearson MD [facility] CPT-50992 Level 3 Est. Patient 20:21:43 FIELD SUPPORT REP Kayla jameson MD [facility] CPT-53867 Level 3 Est. Patient 13:27:28 FIELD SUPPORT REP Kayla jameson MD [facility] CPT-26369 Level 4 Est. Patient 15:57:17 FIELD SUPPORT REP Tesfaye pearson MD [facility] CPT-35836 Level 3 New Patient 13:25:47 CDT Tesfaye kidd MD [facility] CPT-50931 Level 3 New Patient 17:22:21 CDT Kayla angel MD [facility] Procedures Code Procedure Name Date Entry Date Standard Desc ription CPT-G0439 Subsequent Annual Wellness Exam 18:06:36 CDT CPT-G0439 Subsequent Annual Wellness Exam 22:18:11 CDT CPT-36758 Bone Density - XRAY USE ONLY 11:43:58 CDT CPT-52807 Bone Density - XRAY USE ONLY 10:05:16 CDT 2 CPT-32320 Prv Med New Pt 40-64 yrs 18:19:25 CDT 2016 CPT-72939 Foot, right, comp min 3V - XRAY USE ONLY 10:38:34 CDT CPT-G0439 Subsequent Annual Wellness Exam 13:55:04 CDT CPT-G0438 Initial Annual Wellness Exam 11:23:17 CD T CPT-J2930 Solu Medrol 125 mg (Methyl Prednisolone Sodium Succinate) 17:29:12 FIELD SUPPORT REP CPT-59990 Abx/Therapy Injection 17:29:11 FIELD SUPPORT REP CPT-J2930 Solu Medrol 125 mg (Methyl Prednisolone Sodium Succinate) 12:34:38 FIELD SUPPORT REP CPT-J3420 Vitamin B12 1000mcg (Cyanocobalamin) 09:12:55 CDT CPT-J3420 Vitamin B12 1000mcg (Cyanocobalamin) 16:28:06 FIELD SUPPORT REP CPT-38319 Venipuncture Draw Fee 08:39:53 CDT CPT-J3420 Vitamin B12 1000mcg (Cyanocobalamin) 08:46:22 CDT CPT-47414 Abx/Therapy Injection 08:46:22 CDT CPT-J3420 Vitamin B12 1000mcg (Cyanocobalamin) 08:41:26 CDT CPT-63725 Abx/Therapy Injection 08:41:26 CDT CPT-J3420 Vitamin B12 1000mcg (Cyanocobalamin) 08:57:15 CDT CPT-68810 Abx/Therapy Injection 08:57:15 CDT CPT-J3420 Vitamin B12 1000mcg (Cyanocobalamin) 10:59:03 CDT CPT-90090 Abx/Therapy Injection 10:59:03 CDT CPT-J3420 Vitamin B12 1000mcg (Cyanocobalamin) 15:05:39 CDT CPT-71094 Abx/Therapy Injection 15:05:39 CDT CPT-J3420 Vitamin B12 1000mcg (Cyanocobalamin) 13:50:45 CDT CPT-J3420 Vitamin B12 1000mcg (Cyanocobalamin) 08:48:55 CDT CPT-45694 Abx/Therapy Injection 08:48:55 CDT CPT-J3420 Vitamin B12 1000mcg (Cyanocobalamin) 09:14:54 CDT CPT-84836 Abx/Therapy Injection 09:14:54 CDT CPT-J3420 Vitamin B12 1000mcg (Cyanocobalamin) 09:06:06 CDT CPT-70369 Abx/Therapy Injection 09:06:06 CDT CPT-J3420 Vitamin B12 1000mcg (Cyanocobalamin) 09:49:14 CDT CPT-87029 Abx/Therapy Injection 09:49:14 CDT CPT-J3420 Vitamin B12 1000mcg (Cyanocobalamin) 09:10:30 FIELD SUPPORT REP CPT-47332 Abx/Therapy Injection 09:10:30 FIELD SUPPORT REP CPT-J3420 Vitamin B12 1000mcg (Cyanocobalamin) 09:11:07 FIELD SUPPORT REP CPT-20868 Abx/Therapy Injection 09:11:07 FIELD SUPPORT REP CPT-J3420 Vitamin B12 1000mcg (Cyanocobalamin) 09:57:03 FIELD SUPPORT REP CPT-19918 Abx/Therapy Injection 09:57:03 FIELD SUPPORT REP CPT-J3420 Vitamin B12 1000mcg (Cyanocobalamin) 09:23:21 FIELD SUPPORT REP CPT-50540 Abx/Therapy Injection 09:23:21 FIELD SUPPORT REP CPT-63356 Urine Dip (Floor Use Only) 20:21:44 FIELD SUPPORT REP 201 02/12/11 CPT-63617 UA Dip Auto (Floor Use Only) 10:04:39 FIELD SUPPORT REP 2 CPT-55190 Urine Dip (Floor Use Only) 13:27:28 FIELD SUPPORT REP 201 02/12/01 CPT-08165 Bladder Scan 13:27:28 FIELD SUPPORT REP CPT-49469 Abd single AP View 14:30:51 FIELD SUPPORT REP CPT-OV Office Visit 10:15:43 CDT CPT-48877 Urine Dip (Floor Use Only) 17:22:21 CDT 201 02/09/02 CPT-40698 Bladder Scan 17:22:21 CDT
--- OUTSIDE RECORDS SUMMARY | 2020-05-05 11:25 | XMS REPORT | Clinical Summary ---
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.6 Active Tesfaye Sherman MD Long-term (current) drug use Yeast infection 112.9 Inactive Tesfaye Sherman MD Candidiasis of unspecified site Upper respiratory infection 465.9 Inactive Tesfaye Sherman MD Acute upper respiratory infections of un specified site Lower extremity edema, bilateral 782.3 Active 201 07/07/09 León Kodi [employer]DINARY SEAMAN Edema Peripheral neuropathy 356.9 Active Tesfaye lamb [...] MD 201 07/05/07 Yeast infection ICD-112.9 Inactive Tesfaey lamb MD Upper respiratory infection ICD-465.9 Inactive Tesfaye Sherman MD Medication List Medication Instructions Start Date Stop Date Generic Name NDC Status Provider Patient Instruction ROPINIROLE HCL 0.25 MG ORAL TABLET 1 TAB PO Q HS 05/31 ROPINIROLE HCL 40740008048 No Longer Active Tesfaye Sherman MD Ac tive ROPINIROLE HCL 0.5 MG ORAL TABLET 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 ROPINIROLE HCL 66873480755 Active Tesfaye Sherman MD Active PREDNISONE 20 MG ORAL TABLET 1 tab twice daily for 3 d ay, then one daily for three days PREDNISONE 42803325793 No Longer Active Tesfaye Sherman MD Active AMITRIPTYLINE HCL 50 MG ORAL TABLET 1 po q hs for sleep AMITRIPTYLINE HCL 90082614712 No Longer Active Tesfaye Sherman MD Active AMITRIPTYLINE HCL 10 MG ORAL TABLET 1 tablet nightly by mout h for neuropathy AMITRIPTYLINE HCL 43051126419 No Longer Active MARCUS Stapleton Active DIFLUCAN 100 MG ORAL TABLET 1 tablet by mouth daily 20 21/03/11 FLUCONAZOLE 21659708040 No Longer Active Tesfaye Sherman MD Acti ve BACTRIM DS 800-160 MG ORAL TABLET 1 tab by mouth twice daily 201 07/08/06 TRIMETHOPRIM-SULFAMETHOXAZOLE 00493329269 No Longer Active Umer Sherman MD Active CLARITIN 10 MG ORAL TABLET Take one by mouth daily LORATADINE 24688545685 Active Tesfaye Sherman MD Active SUDAFED 12 HOUR 120 MG ORAL TABLET EXTENDED RELEASE 12 HOUR 1 pill twice daily if needed for congestion PSEUDOEPHEDRINE HCL 676971610 13 No Longer Active Tesfaye Sherman MD Active FENOFIBRATE 145 MG ORAL TABLET 1 by mouth daily FENOFIBRATE 27753589008 Active Laurence Dominguez Active GABAPENTIN 300 MG ORAL CAPSULE 1 po daily GABAP ENTIN 82767076992 No Longer Active Tesfaye Sherman MD Active HYDROCHLOROTHIAZIDE 12.5 MG ORAL CAPSULE 1 pill by mough daily 2 HYDROCHLOROTHIAZIDE 29068714278 No Longer Active León Mariee APRN Active VENLAFAXINE HCL 75 MG ORAL TABLET 1 am 1/2 at noon 201 07/07/09 VENLAFAXINE HCL 63605217169 No Longer Active León Mariee APRN Act trent DIFLUCAN 100 MG ORAL TABLET 1 tablet by mouth daily 20 19/02/09 FLUCONAZOLE 24240476123 No Longer Active León Kodi [employer]DINARY SEAMAN Active DIFLUCAN 100 MG ORAL TABLET 1 tablet by mouth daily 20 19/02/09 FLUCONAZOLE 17668777974 No Longer Active León Mariee APRN Active OXYCODONE-ACETAMINOPHEN 5-325 MG ORAL TABLET Take one tablet by mouth every 6 hours 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 Use sparingly OXYCODONE-ACETAMINOPHEN 78976186930 Active Tesfaye villar MD Active CLONAZEPAM 0.5 MG ORAL TABLET Take 1/2 qam, and 1/2 qpm CLONAZEPAM 03592020037 Active Tesfaye Sherman MD Active PRELIEF 340 (65-50) MG (CA-P) ORAL TABLET CALCIUM GLYCEROPHOSPHATE 22706055197 No Longer Active Tesfaye Sherman MD Active SUDAFED 24 HOUR 240 MG ORAL TABLET EXTENDED RELEASE 24 HOUR 1 tab po daily PSEUDOEPHEDRINE HCL 66002330928 No Longer Active Raul Sherman MD Active RED YEAST RICE 600 MG ORAL CAPSULE 1 pill by mouth daily RED YEAST RICE EXTRACT 11084847134 No Longer Active Tesfaye Sherman MD Active REPHRESH PRO-B ORAL CAPSULE 1 tablet daily LACT OBACILLUS 94422333010 No Longer Active Tesfaye Sherman MD Active ABILIFY 2 MG ORAL TABLET 1 by mouth daily. MARIA ELENA PIPRAZOLE 86664759640 Active Tesfaye Sherman MD Active CYMBALTA 60 MG ORAL CAPSULE DELAYED RELEASE PARTICLES 1 cap by mouth daily for pain DULOXETINE HCL 55394559963 Active MARCUS Lindsay Active DIFLUCAN 100 MG ORAL TABLET 1 tablet by mouth daily 20 20/06/06 FLUCONAZOLE 82891906623 No Longer Active Tesfaye Sherman MD Acti ve PREDNISONE 20 MG ORAL TABLET 1 tablet by mouth twice d aily for 3 days, then 1 tablet daily for 3 days PREDNISONE 12110441565 No L onger Active Tesfaye Sherman MD Active BACTRIM DS 800-160 MG ORAL TABLET 1 tab by mouth twice daily 201 06/09/02 TRIMETHOPRIM-SULFAMETHOXAZOLE 87849689132 No Longer Active Fer Dominguez Active DIFLUCAN 100 MG ORAL TABLET 1 tablet by mouth daily 20 20/05/01 FLUCONAZOLE 61141747580 No Longer Active Tesfaye Sherman MD Acti ve ZITHROMAX 250 MG ORAL TABLET 2 po today, then 1 po q days 2-5 20 20/04/28 AZITHROMYCIN 01252460658 No Longer Active Tesfaye Sherman MD Active MECLIZINE HCL 25 MG ORAL TABLET one tab po qday prn dizziness 20 17/09/06 MECLIZINE HCL 45697750639 No Longer Active Tesfaye Sherman MD Active PROAIR HFA 108 (90 BASE) MCG/ACT INHALATION AEROSOL SO LUTION 1 puff every 6 hours as needed ALBUTEROL SULFATE 77420699608 No Long er Active Tesfaye Sherman MD Active PREDNISONE 20 MG ORAL TABLET 1 tab twice daily for 3 d ay, then one daily for three days PREDNISONE 86329373628 No Longer Active Tesfaye Sherman MD Active MECLIZINE HCL 25 MG ORAL TABLET one 4 times a day as needed for dizziness MECLIZINE HCL 44343085949 Active Tesfaye Sherman MD Active AMOXICILLIN 500 MG ORAL CAPSULE 1 cap by mouth three times a day AMOXICILLIN 97101633866 No Longer Active Laurence Raida Acti ve DIFLUCAN 100 MG ORAL TABLET 1 tablet by mouth daily 20 19/08/26 FLUCONAZOLE 77908582593 No Longer Active Tesfaye Sherman MD Acti ve BACTRIM DS 800-160 MG ORAL TABLET 1 tab by mouth twice daily 201 05/10/28 TRIMETHOPRIM-SULFAMETHOXAZOLE 83596256255 No Longer Active A mirna Dominguez Active FOSAMAX 70 MG ORAL TABLET 1 po qweek. Take 30min prio r to first food/drink. Avoid lying down x 1 hour. ALENDRONATE SODIUM 11001861 144 No Longer Active Laurenceyohana Dominguez Active CYMBALTA 60 MG ORAL CAPSULE DELAYED RELEASE PARTICLES Take 1 tablet by mouth daily DULOXETINE HCL 99907427797 No Longer Active Edith Burch MD Active CYMBALTA 30 MG ORAL CAPSULE DELAYED RELEASE PARTICLES 1 cap by mouth daily with 60mg DULOXETINE HCL 58255091897 No Longer Active Jordan Burch MD Active FISH OIL 1000 MG ORAL CAPSULE DELAYED RELEASE 1 pill b y mouth daily for cholesterol OMEGA-3 FATTY ACIDS 06904263268 Active Cee Jaffe LPN Active DIFLUCAN 100 MG ORAL TABLET 1 tablet by mouth daily 20 19/03/05 FLUCONAZOLE 26602730341 No Longer Active Tesfaye Sherman MD Acti ve BACTRIM DS 800-160 MG ORAL TABLET 1 tab by mouth twice daily 201 05/06/28 TRIMETHOPRIM-SULFAMETHOXAZOLE 92084957873 No Longer Active Umer Sherman MD Active BACTRIM DS 800-160 MG ORAL TABLET 1 tab by mouth twice daily 201 05/04/15 TRIMETHOPRIM-SULFAMETHOXAZOLE 21001708258 No Longer Active Umer Sherman MD Active DIFLUCAN 150 MG ORAL TABLET 1 tablet by mouth daily 20 18/09/20 FLUCONAZOLE 77268265393 No Longer Active Tesfaye Sherman MD Acti ve BACTRIM DS 800-160 MG ORAL TABLET 1 tab by mouth twice daily 201 04/13/17 TRIMETHOPRIM-SULFAMETHOXAZOLE 56349710835 No Longer Active Umer Sherman MD Active CEFTIN 250 MG ORAL TABLET 1 tablet twice daily x 7 days CEFUROXIME AXETIL 89656259488 No Longer Active Tesfaye Sherman MD Active DIFLUCAN 100 MG ORAL TABLET 1 tablet by mouth every other da y for 2 doses FLUCONAZOLE 82613918530 No Longer Active Tesfaye barron MD Active DIFLUCAN 100 MG ORAL TABLET 1 tablet by mouth daily X 3 DAYS 201 04/09/01 FLUCONAZOLE 11130214851 No Longer Active jR Moss DO Ac tive MIRTAZAPINE 15 MG ORAL TABLET 1/2 tab by mouth at bedtime. 03/13 MIRTAZAPINE 73112615939 No Longer Active Tesfaye Sherman MD Active BACTRIM DS 800-160 MG ORAL TABLET 1 tab by mouth twice daily 201 04/09/01 TRIMETHOPRIM-SULFAMETHOXAZOLE 30729723067 No Longer Active Umer Sherman MD Active PRAMIPEXOLE DIHYDROCHLORIDE 0.125 MG ORAL TABLET take 1 tablet po qhs for restless leg syndrome. PRAMIPEXOLE DIHYDROCHLORI DE 26939792139 No Longer Active Tesfaye Sherman MD Active MAGNESIUM 400 MG ORAL TABLET 1 tab po daily MAGNE SIUM 70369162193 Active Chelsea Cardenas APRN Active CETIRIZINE HCL 5 MG ORAL TABLET Take 1 tablet by mouth daily CETIRIZINE HCL 05093651379 No Longer Active Chelsea Cardenas APRN Activ e TRIMETHOPRIM 100 MG ORAL TABLET 1/2 qd TRIM ETHOPRIM 11767261421 No Longer Active Chelsea Cardenas APRN Active BACTRIM DS 800-160 MG ORAL TABLET 1 tab by mouth twice daily 201 04/04/11 TRIMETHOPRIM-SULFAMETHOXAZOLE 90588499676 No Longer Active Umer Sherman MD Active BACTRIM DS 800-160 MG ORAL TABLET 1 tab by mouth twice daily X 10 DAYS TRIMETHOPRIM-SULFAMETHOXAZOLE 79469190692 No Longer Active Tesfaye Sherman MD Active AMOXICILLIN 500 MG ORAL CAPSULE 1 cap by mouth three times a day AMOXICILLIN 00948208677 No Longer Active Adriana Arredondo, A A ctive B-12 1000 MCG ORAL LOZENGE 1 tab po daily CYANO COBALAMIN 70544652381 Active Tesfaye Sherman MD Active VITAMIN D3 2000 UNIT ORAL TABLET 1 daily, for vitamin D deficien cy CHOLECALCIFEROL 46463346766 No Longer Active Tesfaye Sherman MD Active TIZANIDINE HCL 2 MG ORAL TABLET take 1-2 tablet by mo [facility] every day at bedtime at 9pm PRN TIZANIDINE HCL 95797287571 Active Tesfaye hewitt MD Active ZITHROMAX 250 MG ORAL TABLET 2 po today, then 1 po q days 2-5 20 15/02/10 AZITHROMYCIN 67236894691 No Longer Active Tesfaye Sherman MD Active BACTRIM DS 800-160 MG ORAL TABLET 1 tab by mouth twice daily 201 03/03/23 TRIMETHOPRIM-SULFAMETHOXAZOLE 35192346030 No Longer Active Umer Sherman MD Active [facility] NIACIN FLUSH FREE 400-100 MG ORAL CAPSULE 1 daily NIACIN-INOSITOL 05424330436 Active Kayla Cooper MD Activ e DIFLUCAN 150 MG ORAL TABLET 1 qd FLUCONAZOL E 39767449388 No Longer Active Kayla Cooper MD Active FLUTICASONE PROPIONATE 50 MCG/ACT NASAL SUSPENSION 1 spray each nostril twice daily FLUTICASONE PROPIONATE 84239872151 Active Umer Sherman MD Active LOVASTATIN 20 MG ORAL TABLET Take 1 tablet by mouth daily LOVASTATIN 42152648374 No Longer Active Tesfaye Sherman MD Acti ve MELOXICAM 7.5 MG ORAL TABLET 1 tablet by mouth daily 2 MELOXICAM 62017528200 No Longer Active Tesfaye Sherman MD Acti ve GABAPENTIN 300 MG ORAL CAPSULE Take two tablets by mouth every e vening GABAPENTIN 23442153439 No Longer Active Edith Burch MD A ctive BACLOFEN 10 MG ORAL TABLET Take one tablet by mouth three times a d ay BACLOFEN 97517154971 Active J John Cooper MD Active GABAPENTIN 300 MG ORAL CAPSULE Take two tablets by mouth every e vening GABAPENTIN 300 MG ORAL CAPSULE 105671 GABAPENTIN I nactive MELOXICAM 7.5 MG ORAL TABLET 1 tablet by mouth daily 2 MELOXICAM 7.5 MG ORAL TABLET 734313 MELOXICAM Inactive LOVASTATIN 20 MG ORAL TABLET Take 1 tablet by mouth daily LOVASTATIN 20 MG ORAL TABLET 092963 LOVASTATIN Inactive DIFLUCAN 150 MG ORAL TABLET 1 qd DIFLUCAN 150 MG ORAL TABLET 433621 FLUCONAZOLE Inactive VITAMIN D3 2000 UNIT ORAL TABLET 1 daily, for vitamin D deficien cy VITAMIN D3 2000 UNIT ORAL TABLET CHOLECALCIFEROL Inactive AMOXICILLIN 500 MG ORAL CAPSULE 1 cap by mouth three times a day AMOXICILLIN 500 MG ORAL CAPSULE 020641 AMOXICILLIN Inactive BACTRIM DS 800-160 MG ORAL TABLET 1 tab by mouth twice daily X 10 DAYS BACTRIM DS 800-160 MG ORAL TABLET 954233 TRIMETHOPRIM-SULFAMETHOXAZOLE Inactive TRIMETHOPRIM 100 MG ORAL TABLET 1/2 qd 7 TRIMETHOPRIM 100 MG ORAL TABLET 672831 TRIMETHOPRIM Inactive CETIRIZINE HCL 5 MG ORAL TABLET Take 1 tablet by mouth daily CETIRIZINE HCL 5 MG ORAL TABLET 4609337 CETIRIZINE HCL Inactive PRAMIPEXOLE DIHYDROCHLORIDE 0.125 MG ORAL TABLET take 1 tablet po qhs for restless leg syndrome. PRAMIPEXOLE DIHYD ROCHLORIDE 0.125 MG ORAL TABLET 304554 PRAMIPEXOLE DIHYDROCHLORIDE Inactive MIRTAZAPINE 15 MG ORAL TABLET 1/2 tab by mouth at bedtime. 03/13 MIRTAZAPINE 15 MG ORAL TABLET 875182 MIRTAZAPINE In active DIFLUCAN 100 MG ORAL [...] 30 MG ORAL CAPSULE DELAYED RELEASE PARTICLES 712902 DULOXETINE HCL Inactive CYMBALTA 60 MG ORAL CAPSULE DELAYED RELEASE PARTICLES Take 1 tablet by mouth daily CYMBALTA 60 MG ORAL CAPSULE DELAYED RELEA SE PARTICLES 812204 DULOXETINE HCL Inactive FOSAMAX 70 MG ORAL TABLET 1 po qweek. Take 30min prio r to first food/drink. Avoid lying down x 1 hour. FOSAMAX 70 MG ORAL TA BLET 843804 ALENDRONATE SODIUM Inactive DIFLUCAN 100 MG ORAL TABLET 1 tablet by mouth daily 19/08/26 DIFLUCAN 100 MG ORAL TABLET 614448 FLUCONAZOLE Inactive PREDNISONE 20 MG ORAL TABLET 1 tab twice daily for 3 d ay, then one daily for three days PREDNISONE 20 MG ORAL TABLET 661082 PREDNIS ONE Inactive PROAIR HFA 108 (90 BASE) MCG/ACT INHALATION AEROSOL SO LUTION 1 puff every 6 hours as needed PROAIR HFA 108 (90 B ASE) MCG/ACT INHALATION AEROSOL SOLUTION ALBUTEROL SULFATE Inactive MECLIZINE HCL 25 MG ORAL TABLET one tab po qday prn dizziness 20 17/09/06 MECLIZINE HCL 25 MG ORAL TABLET 176825 MECLIZINE HCL Inactive PREDNISONE 20 MG ORAL TABLET 1 tablet by mouth twice d aily for 3 days, then 1 tablet daily for 3 days PREDNISONE 20 MG ORAL TA BLET 658282 PREDNISONE Inactive DIFLUCAN 100 MG ORAL TABLET 1 tablet by mouth daily 20 20/06/06 DIFLUCAN 100 MG ORAL TABLET 378089 FLUCONAZOLE Inactive REPHRESH PRO-B ORAL CAPSULE 1 tablet daily REPHRESH PRO-B ORAL CAPSULE LACTOBACILLUS Inactive RED YEAST RICE 600 MG ORAL CAPSULE 1 pill by mouth daily RED YEAST RICE 600 MG ORAL CAPSULE 880875 RED YEAST RICE EXTRACT In active SUDAFED [...] 20 19/02/09 DIFLUCAN 100 MG ORAL TABLET 739171 FLUCONAZOLE Inactive DIFLUCAN 100 MG ORAL TABLET 1 tablet by mouth daily 20 19/02/09 DIFLUCAN 100 MG ORAL TABLET 359291 FLUCONAZOLE Inactive VENLAFAXINE HCL 75 MG ORAL TABLET 1 am 1/2 at noon 201 07/07/09 VENLAFAXINE HCL 75 MG ORAL TABLET 981446 VENLAFAXINE HCL Inacti ve GABAPENTIN 300 MG ORAL CAPSULE 1 po daily GABAPENTIN 300 MG ORAL CAPSULE 839634 GABAPENTIN Inactive SUDAFED 12 HOUR 120 MG ORAL TABLET EXTENDED RELEASE 12 HOUR 1 pill twice daily if needed for congestion SUDAFED 12 HOUR 120 MG ORAL TABLET EXTENDED RELEASE 12 HOUR PSEUDOEPHEDRINE HCL Inactive AMITRIPTYLINE HCL 10 MG ORAL TABLET 1 tablet nightly by mout h for neuropathy AMITRIPTYLINE HCL 10 MG ORAL TABLET 201738 AMITRIPTYLINE HCL Inactive AMITRIPTYLINE HCL 50 MG ORAL TABLET 1 po q hs for sleep AMITRIPTYLINE HCL 50 MG ORAL TABLET 109524 AMITRIPTYLINE HCL Inac tive PREDNISONE 20 MG ORAL TABLET 1 tab twice daily for 3 d ay, then one daily for three days PREDNISONE 20 MG ORAL TABLET 050993 PREDNIS ONE Inactive ROPINIROLE HCL 0.25 MG ORAL TABLET 1 TAB PO Q HS 05/31 ROPINIROLE HCL 0.25 MG ORAL TABLET 963949 ROPINIROLE HCL Inact trent BACTRIM DS 800-160 MG ORAL TABLET 1 tab by mouth twice daily 201 03/03/23 BACTRIM DS 800-160 MG ORAL TABLET 19830105 TRIMETHOPRIM-SULFAMETHOXAZOLE Inactive ZITHROMAX 250 MG ORAL TABLET 2 po today, then 1 po q days 2-5 20 15/02/10 ZITHROMAX 250 MG ORAL TABLET 108609 AZITHROMYCIN [place] ctive BACTRIM DS 800-160 MG ORAL TABLET 1 tab by mouth twice daily 201 04/04/11 BACTRIM DS 800-160 MG ORAL TABLET 19830105 TRIMETHOPRIM-SULFAMETHOXAZOLE Inactive BACTRIM DS 800-160 MG ORAL TABLET 1 tab by mouth twice daily 201 04/09/01 BACTRIM DS 800-160 MG ORAL TABLET 684430 TRIMETHOPRIM-SULFAMETHOXAZOLE Inactive BACTRIM DS 800-160 MG ORAL TABLET 1 tab by mouth twice daily 201 04/13/17 BACTRIM DS 800-160 MG ORAL TABLET 301213 TRIMETHOPRIM-SULFAMETHOXAZOLE Inactive DIFLUCAN 150 MG ORAL TABLET [...] 05/06/28 BACTRIM DS 800-160 MG ORAL TABLET 968536 TRIMETHOPRIM-SULFAMETHOXAZOLE Inactive DIFLUCAN 100 MG ORAL TABLET 1 tablet by mouth daily 20 19/03/05 DIFLUCAN 100 MG ORAL TABLET 19760711 FLUCONAZOLE Inactive BACTRIM DS 800-160 MG ORAL TABLET 1 tab by mouth twice daily 201 05/10/28 BACTRIM DS 800-160 MG ORAL TABLET 19830105 TRIMETHOPRIM-SULFAMETHOXAZOLE Inactive AMOXICILLIN 500 MG ORAL CAPSULE 1 cap by mouth three times a day AMOXICILLIN 500 MG ORAL CAPSULE 147522 AMOXICILLIN Inactive ZITHROMAX 250 MG ORAL TABLET 2 po today, then 1 po q days 2-5 20 20/04/28 ZITHROMAX 250 MG ORAL TABLET 800278 AZITHROMYCIN [place] ctive DIFLUCAN 100 MG ORAL TABLET 1 tablet by mouth daily 20 20/05/01 DIFLUCAN 100 MG ORAL TABLET 820991 FLUCONAZOLE Inactive BACTRIM DS 800-160 MG ORAL TABLET 1 tab by mouth twice daily 201 06/09/02 BACTRIM DS 800-160 MG ORAL TABLET 513570 TRIMETHOPRIM-SULFAMETHOXAZOLE Inactive HYDROCHLOROTHIAZIDE 12.5 MG ORAL CAPSULE 1 pill by mough daily 2 HYDROCHLOROTHIAZIDE 12.5 MG ORAL CAPSULE HYDROCH LOROTHIAZIDE Inactive BACTRIM DS 800-160 MG ORAL TABLET 1 tab by mouth twice daily 201 07/08/06 BACTRIM DS 800-160 MG ORAL TABLET 023027 TRIMETHOPRIM-SULFAMETHOXAZOLE Inactive DIFLUCAN 100 MG ORAL TABLET 1 tablet by mouth daily 20 21/03/11 DIFLUCAN 100 MG ORAL TABLET 815879 FLUCONAZOLE Inactive Advance Directives Directive Description Start Date PERMISSION TO SHARE DISCUSSED WITH PATIENT -- NO DECISION MADE DURABLE POWER OF STRATEGIC DEVELOPMENT MANAGER FOR HEALTHCARE DISCUSED WITH PATIENT -- [...] Negative mg/dL Negative sodium, serum 139 mmol/L 765-775 0099/11/07 carbon dioxide, venous blood 28.4 mmol/L 21.0-32 [...] ative Encounters Code Encounter Date Provider Facility CPT-50285 [id number] Vst-Est Level IV 14:08:03 C BRIDGET Sherman MD [facility] CPT-65512 Level 3 Est. Patient 18:06:36 CDT Tesfaye pearson MD [facility] CPT-02569 [id number] Vst-Est Level IV 17:09:34 C BRIDGET Sherman MD [facility] CPT-23740 Level 3 Est. Patient 17:27:08 CDT León Tin dle [facility]-13900 [id number] Vst-Est Level IV 14:00:[address] Tesfaye Sherman MD [facility]-93267 [id number] Vst-Est Level IV 19:27:[address] Tesfaye Sherman MD [facility]-80977 53847-Wak Vst-Est Level IV 10:41:41 C BRIDGET Sherman MD [facility]-32507 [id number] Vst-Est Level III 09:40:56 CDT Tesfaye Sehrman MD [facility] CPT-29204 Level 4 Est. Patient 22:18:12 CDT Tesfaye pearson MD [facility] CPT-04617 Level 4 Est. Patient 14:44:33 CARTOGRAPHY TEACHER Tesfaye pearson MD [facility] CPT-32953 Level 4 Est. Patient 13:55:29 CARTOGRAPHY TEACHER Tesfaye pearson MD [facility] CPT-01298 Level 4 Est. Patient 17:07:34 CARTOGRAPHY TEACHER Tesfaye pearson MD [facility] CPT-33281 Level 4 Est. Patient 13:56:54 CDT Tesfaye pearson MD [facility] CPT-12976 Level 4 Est. Patient 13:24:25 CDT Chelsea sanz [facility] CPT-32342 Level 4 Est. Patient 09:14:56 CDT Tesfaye pearson MD [facility] CPT-96816 Level 4 Est. Patient 18:40:25 CARTOGRAPHY TEACHER Tesfaye pearson MD [facility] CPT-93426 Level 4 Est. Patient 18:13:07 CARTOGRAPHY TEACHER Tesfaye pearson MD [facility] CPT-56635 Level 3 Est. Patient 10:46:32 CDT Rj cotto DO [facility] CPT-89798 Level 4 Est. Patient 20:19:25 CDT Tesfaye pearson MD [facility] CPT-75956 Level 3 Est. Patient 09:07:31 CDT Tesfaye pearson MD [facility] CPT-77403 Level 4 Est. Patient 13:12:56 CDT Tesfaye pearson MD [facility] CPT-42896 Level 4 Est. Patient 21:24:55 CARTOGRAPHY TEACHER Tesfaye pearson MD [facility] CPT-30827 Level 3 Est. Patient 13:45:04 CARTOGRAPHY TEACHER Tesfaye pearson MD [facility] CPT-41815 Level 4 Est. Patient 13:50:45 CDT Tesfaye pearson MD [facility] CPT-31601 Level 3 Est. Patient 10:16:10 CDT Tesfaye pearson MD [facility] CPT-05026 Level 3 Est. Patient 16:36:07 CARTOGRAPHY TEACHER Kayla jameson MD [facility] CPT-18192 Level 4 Est. Patient 16:00:14 CARTOGRAPHY TEACHER Tesfaye pearson MD [facility] CPT-55720 Level 4 Est. Patient 11:02:24 CARTOGRAPHY TEACHER Tesfaye pearson MD [facility] CPT-04868 Level 3 Est. Patient 20:21:43 CARTOGRAPHY TEACHER Kayla jameson MD [facility] CPT-49547 Level 3 Est. Patient 13:27:28 CARTOGRAPHY TEACHER Kayla jameson MD [facility] CPT-64915 Level 4 Est. Patient 15:57:17 CARTOGRAPHY TEACHER Tesfaye pearson MD [facility] CPT-57960 Level 3 New Patient 13:25:47 CDT Tesfaye kidd MD [facility] CPT-96649 Level 3 New Patient 17:22:21 CDT Kayla angel MD [facility] Procedures Code Procedure Name Date Entry Date Standard Desc ription CPT-G0439 Subsequent Annual Wellness Exam 18:06:36 CDT CPT-G0439 Subsequent Annual Wellness Exam 22:18:11 CDT CPT-53861 Bone Density - XRAY USE ONLY 11:43:58 CDT CPT-02505 Bone Density - XRAY USE ONLY 10:05:16 CDT 2 CPT-14048 Prv Med New Pt 40-64 yrs 18:19:25 CDT 2016 CPT-82720 Foot, right, comp min 3V - XRAY USE ONLY 10:38:34 CDT CPT-G0439 Subsequent Annual Wellness Exam 13:55:04 CDT CPT-G0438 Initial Annual Wellness Exam 11:23:17 CD T CPT-J2930 Solu Medrol 125 mg (Methyl Prednisolone Sodium Succinate) 17:29:12 CARTOGRAPHY TEACHER CPT-60306 Abx/Therapy Injection 17:29:11 CARTOGRAPHY TEACHER CPT-J2930 Solu Medrol 125 mg (Methyl Prednisolone Sodium Succinate) 12:34:38 CARTOGRAPHY TEACHER CPT-J3420 Vitamin B12 1000mcg (Cyanocobalamin) 09:12:55 CDT CPT-J3420 Vitamin B12 1000mcg (Cyanocobalamin) 16:28:06 CARTOGRAPHY TEACHER CPT-49102 Venipuncture Draw Fee 08:39:53 CDT CPT-J3420 Vitamin B12 1000mcg (Cyanocobalamin) 08:46:22 CDT CPT-51332 Abx/Therapy Injection 08:46:22 CDT CPT-J3420 Vitamin B12 1000mcg (Cyanocobalamin) 08:41:26 CDT CPT-76577 Abx/Therapy Injection 08:41:26 CDT CPT-J3420 Vitamin B12 1000mcg (Cyanocobalamin) 08:57:15 CDT CPT-41894 Abx/Therapy Injection 08:57:15 CDT CPT-J3420 Vitamin B12 1000mcg (Cyanocobalamin) 10:59:03 CDT CPT-36468 Abx/Therapy Injection 10:59:03 CDT CPT-J3420 Vitamin B12 1000mcg (Cyanocobalamin) 15:05:39 CDT CPT-08593 Abx/Therapy Injection 15:05:39 CDT CPT-J3420 Vitamin B12 1000mcg (Cyanocobalamin) 13:50:45 CDT CPT-J3420 Vitamin B12 1000mcg (Cyanocobalamin) 08:48:55 CDT CPT-46391 Abx/Therapy Injection 08:48:55 CDT CPT-J3420 Vitamin B12 1000mcg (Cyanocobalamin) 09:14:54 CDT CPT-55399 Abx/Therapy Injection 09:14:54 CDT CPT-J3420 Vitamin B12 1000mcg (Cyanocobalamin) 09:06:06 CDT CPT-71516 Abx/Therapy Injection 09:06:06 CDT CPT-J3420 Vitamin B12 1000mcg (Cyanocobalamin) 09:49:14 CDT CPT-41726 Abx/Therapy Injection 09:49:14 CDT CPT-J3420 Vitamin B12 1000mcg (Cyanocobalamin) 09:10:30 CARTOGRAPHY TEACHER CPT-00828 Abx/Therapy Injection 09:10:30 CARTOGRAPHY TEACHER CPT-J3420 Vitamin B12 1000mcg (Cyanocobalamin) 09:11:07 CARTOGRAPHY TEACHER CPT-40800 Abx/Therapy Injection 09:11:07 CARTOGRAPHY TEACHER CPT-J3420 Vitamin B12 1000mcg (Cyanocobalamin) 09:57:03 CARTOGRAPHY TEACHER CPT-71278 Abx/Therapy Injection 09:57:03 CARTOGRAPHY TEACHER CPT-J3420 Vitamin B12 1000mcg (Cyanocobalamin) 09:23:21 CARTOGRAPHY TEACHER CPT-47699 Abx/Therapy Injection 09:23:21 CARTOGRAPHY TEACHER CPT-84094 Urine Dip (Floor Use Only) 20:21:44 CARTOGRAPHY TEACHER 201 02/12/11 CPT-56947 UA Dip Auto (Floor Use Only) 10:04:39 CARTOGRAPHY TEACHER 2 CPT-75039 Urine Dip (Floor Use Only) 13:27:28 CARTOGRAPHY TEACHER 201 02/12/01 CPT-44803 Bladder Scan 13:27:28 CARTOGRAPHY TEACHER CPT-66552 Abd single AP View 14:30:51 CARTOGRAPHY TEACHER CPT-OV Office Visit 10:15:43 CDT CPT-86945 Urine Dip (Floor Use Only) 17:22:21 CDT 201 02/09/02 CPT-69865 Bladder Scan 17:22:21 CDT
[2020-05-05 11:26] LABS: ALKALINE PHOSPHATASE 83 U/L (40-136); CREATININE SERUM 0.73 MG/DL (0.60-1.30); GFR ESTIMATED > 60
--- OUTSIDE RECORDS SUMMARY | 2020-05-05 11:26 | XMS REPORT | Clinical Summary ---
Author Author Talon, Jeri Wood Organization [employer] Address Unknown Phone Unavailable Allergies, Adverse Reactions, [...] MD Routine general medical examination at a [facility] Body Mass Index 21.0-21.9 Adult Refinement 2017 Tesfaye Sherman MD Body Mass Index between 19-24, adult BMI 22-22.9 Refinement Tesfaye Sherman MD Body Mass Index between 19-24, adult BMI 23-23.9 Refinement León Mariee APRN Body Mass Index between 19-24, adult BMI 22-22.9 Active Tesfaye Sherman MD Body Mass Index [...] bilateral 782.3 Active 201 07/07/09 León Kodi TEST BORER Edema Peripheral neuropathy 356.9 Active Tesfaye lamb MD Unspecified hereditary and idiopathic peripheral neuropathy FH Depression ICD-V17.0 Inactive Tesfaye Sherman MD FH Diabetes ICD-V18.0 Inactive Tesfaye Sehrman MD 20 22/12/06 WELL WOMAN EXAMINATION ICD-V72.31 [...] Generic Name NDC Status Provider Patient Instruction AMITRIPTYLINE HCL 50 MG ORAL TABLET 1 po q hs for sleep AMITRIPTYLINE HCL 99362381103 Active MARCUS Maravilla Active AMITRIPTYLINE HCL 10 MG ORAL TABLET 1 tablet nightly by mout h for neuropathy AMITRIPTYLINE HCL 21593500105 No Longer Active MARCUS Stapleton Active PREDNISONE 20 MG ORAL TABLET 1 tab twice daily for 3 d ay, then one daily for three days PREDNISONE 71669647497 Active Tesfaye Sherman MD Active DIFLUCAN 100 MG ORAL TABLET 1 tablet by mouth daily 20 21/03/11 FLUCONAZOLE 52004779822 No Longer Active Tesfaye Sherman MD Acti ve BACTRIM DS 800-160 MG ORAL TABLET 1 tab by mouth twice daily 201 07/08/06 TRIMETHOPRIM-SULFAMETHOXAZOLE 73390245784 No Longer Active Umer Sherman MD Active CLARITIN 10 MG ORAL TABLET Take one by mouth daily LORATADINE 55499582871 Active Tesfaye Sherman MD Active SUDAFED 12 HOUR 120 MG ORAL TABLET EXTENDED RELEASE 12 HOUR 1 pill twice daily if needed for congestion PSEUDOEPHEDRINE HCL 279836320 13 No Longer Active Tesfaye Sherman MD Active FENOFIBRATE 145 MG ORAL TABLET 1 by mouth daily FENOFIBRATE 17336721866 Active Laurence Dominguez Active GABAPENTIN 300 MG ORAL CAPSULE 1 po daily GABAP ENTIN 29653259799 No Longer Active Tesfaye Sherman MD Active HYDROCHLOROTHIAZIDE 12.5 MG ORAL CAPSULE 1 pill by mough daily 2 HYDROCHLOROTHIAZIDE 97867643119 No Longer Active León Mariee APRN Active VENLAFAXINE HCL 75 MG ORAL TABLET 1 am 1/2 at noon 201 07/07/09 VENLAFAXINE HCL 01854586798 No Longer Active León Mariee APRN Act trent DIFLUCAN 100 MG ORAL TABLET 1 tablet by mouth daily 20 19/02/09 FLUCONAZOLE 69717382688 No Longer Active León Mariee APRN Active DIFLUCAN 100 MG ORAL TABLET 1 tablet by mouth daily 19/02/09 FLUCONAZOLE 42438336881 No Longer Active Leónkash Mariee APRN Active OXYCODONE-ACETAMINOPHEN 5-325 MG ORAL TABLET Take one tablet by mouth every 6 hours 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 Use sparingly OXYCODONE-ACETAMINOPHEN 89134642235 Active Tesfaye villar MD Active CLONAZEPAM 0.5 MG ORAL TABLET Take 1/2 qam, and 1/2 qpm CLONAZEPAM 88982143030 Active Tesfaye Sherman MD Active PRELIEF 340 (65-50) MG (CA-P) ORAL TABLET CALCIUM GLYCEROPHOSPHATE 48352665374 No Longer Active Tesfaye Sherman MD Active SUDAFED 24 HOUR 240 MG ORAL TABLET EXTENDED RELEASE 24 HOUR 1 tab po daily PSEUDOEPHEDRINE HCL 84266563428 No Longer Active Raul Sherman MD Active RED YEAST RICE 600 MG ORAL CAPSULE 1 pill by mouth daily RED YEAST RICE EXTRACT 21913960939 No Longer Active Tesfaye Sherman MD Active REPHRESH PRO-B ORAL CAPSULE 1 tablet daily LACT OBACILLUS 82045654769 No Longer Active Tesfaye Sherman MD Active ABILIFY 2 MG ORAL TABLET 1 by mouth daily. MARIA ELENA PIPRAZOLE 26483991109 Active Tesfaye Sherman MD Active CYMBALTA 60 MG ORAL CAPSULE DELAYED RELEASE PARTICLES 1 cap by mouth daily for pain DULOXETINE HCL 98780500196 Active MARCUS Lindsay Active DIFLUCAN 100 MG ORAL TABLET 1 tablet by mouth daily 20/06/06 FLUCONAZOLE 81641673410 No Longer Active Tesfaye Sherman MD Acti ve PREDNISONE 20 MG ORAL TABLET 1 tablet by mouth twice d aily for 3 days, then 1 tablet daily for 3 days PREDNISONE 58605757578 No L onger Active Tesfaye Sherman MD Active BACTRIM DS 800-160 MG ORAL TABLET 1 tab by mouth twice daily 201 06/09/02 TRIMETHOPRIM-SULFAMETHOXAZOLE 22645254379 No Longer Active A mirna ida Active DIFLUCAN 100 MG ORAL TABLET 1 tablet by mouth daily 20 20/05/01 FLUCONAZOLE 27822805356 No Longer Active Tesfaye Sherman MD Acti ve ZITHROMAX 250 MG ORAL TABLET 2 po today, then 1 po q days 2-5 20 20/04/28 AZITHROMYCIN 69469583376 No Longer Active Tesfaye Sherman MD Active MECLIZINE HCL 25 MG ORAL TABLET one tab po qday prn dizziness 20 17/09/06 MECLIZINE HCL 24529870467 No Longer Active Tesfaye Sherman MD Active PROAIR HFA 108 (90 BASE) MCG/ACT INHALATION AEROSOL SO LUTION 1 puff every 6 hours as needed ALBUTEROL SULFATE 49819061066 No Long er Active Tesfaye Sherman MD Active PREDNISONE 20 MG ORAL TABLET 1 tab twice daily for 3 d ay, then one daily for three days PREDNISONE 50045590955 No Longer Active Tesfaye Sherman MD Active MECLIZINE HCL 25 MG ORAL TABLET one 4 times a day as needed for dizziness MECLIZINE HCL 84782306118 Active Tesfaye Sherman MD Active AMOXICILLIN 500 MG ORAL CAPSULE 1 cap by mouth three times a day AMOXICILLIN 25701576317 No Longer Active Laurence Angelica Acti ve DIFLUCAN 100 MG ORAL TABLET 1 tablet by mouth daily 20 19/08/26 FLUCONAZOLE 56903475100 No Longer Active Tesfaye Sherman MD Acti ve BACTRIM DS 800-160 MG ORAL TABLET 1 tab by mouth twice daily 201 05/10/28 TRIMETHOPRIM-SULFAMETHOXAZOLE 64011014006 No Longer Active A mirna Raduyen Active FOSAMAX 70 MG ORAL TABLET 1 po qweek. Take 30min prio r to first food/drink. Avoid lying down x 1 hour. ALENDRONATE SODIUM 00263492 144 No Longer Active Laurence Dominguez Active CYMBALTA 60 MG ORAL CAPSULE DELAYED RELEASE PARTICLES Take 1 tablet by mouth daily DULOXETINE HCL 99408543593 No Longer Active Edith Burch MD Active CYMBALTA 30 MG ORAL CAPSULE DELAYED RELEASE PARTICLES 1 cap by mouth daily with 60mg DULOXETINE HCL 03726949524 No Longer Active Jordan Burch MD Active FISH OIL 1000 MG ORAL CAPSULE DELAYED RELEASE 1 pill b y mouth daily for cholesterol OMEGA-3 FATTY ACIDS 29778406393 Active Cee Jaffe LPN Active DIFLUCAN 100 MG ORAL TABLET 1 tablet by mouth daily 19/03/05 FLUCONAZOLE 73798806757 No Longer Active Tesfaye Sherman MD Acti ve BACTRIM DS 800-160 MG ORAL TABLET 1 tab by mouth twice daily 201 05/06/28 TRIMETHOPRIM-SULFAMETHOXAZOLE 34545740877 No Longer Active Umer Sherman MD Active BACTRIM DS 800-160 MG ORAL TABLET 1 tab by mouth twice daily 201 05/04/15 TRIMETHOPRIM-SULFAMETHOXAZOLE 91965341743 No Longer Active Umer Sherman MD Active DIFLUCAN 150 MG ORAL TABLET 1 tablet by mouth daily 20 18/09/20 FLUCONAZOLE 95866061631 No Longer Active Tesfaye Sherman MD Acti ve BACTRIM DS 800-160 MG ORAL TABLET 1 tab by mouth twice daily 201 04/13/17 TRIMETHOPRIM-SULFAMETHOXAZOLE 06174560374 No Longer Active Umer Sherman MD Active ROPINIROLE HCL 0.25 MG ORAL TABLET 1 TAB PO Q HS ROPINIROLE HCL 46167293937 Active Tesfaye Sherman MD Active CEFTIN 250 MG ORAL TABLET 1 tablet twice daily x 7 days CEFUROXIME AXETIL 62880893680 No Longer Active Tesfaye Sherman MD Active DIFLUCAN 100 MG ORAL TABLET 1 tablet by mouth every other da y for 2 doses FLUCONAZOLE 50322022172 No Longer Active Tesfaye barron MD Active DIFLUCAN 100 MG ORAL TABLET 1 tablet by mouth daily X 3 DAYS 201 04/09/01 FLUCONAZOLE 71143140566 No Longer Active Rj Lyons tive MIRTAZAPINE 15 MG ORAL TABLET 1/2 tab by mouth at bedtime. 03/13 MIRTAZAPINE 36627348971 No Longer Active Tesfaye Sherman MD Active BACTRIM DS 800-160 MG ORAL TABLET 1 tab by mouth twice daily 201 04/09/01 TRIMETHOPRIM-SULFAMETHOXAZOLE 47858741075 No Longer Active D patricia Sherman MD Active PRAMIPEXOLE DIHYDROCHLORIDE 0.125 MG ORAL TABLET take 1 tablet po qhs for restless leg syndrome. PRAMIPEXOLE DIHYDROCHLORI DE 19433752913 No Longer Active Tesfaye Sherman MD Active MAGNESIUM 400 MG ORAL TABLET 1 tab po daily MAGNE SIUM 14492231923 Active Chelsea Cardenas APRN Active CETIRIZINE HCL 5 MG ORAL TABLET Take 1 tablet by mouth daily CETIRIZINE HCL 46939662550 No Longer Active Chelsea Cardenas APRN Activ e TRIMETHOPRIM 100 MG ORAL TABLET 1/2 qd TRIM ETHOPRIM 42481170718 No Longer Active Chelsea Cardenas APRN Active BACTRIM DS 800-160 MG ORAL TABLET 1 tab by mouth twice daily 201 04/04/11 TRIMETHOPRIM-SULFAMETHOXAZOLE 95952264707 No Longer Active Umer Sherman MD Active BACTRIM DS 800-160 MG ORAL TABLET 1 tab by mouth twice daily X 10 DAYS TRIMETHOPRIM-SULFAMETHOXAZOLE 88197715270 No Longer Active Tesfaye Sherman MD Active AMOXICILLIN 500 MG ORAL CAPSULE 1 cap by mouth three times a day AMOXICILLIN 04699533898 No Longer Active MARCUS Maravilla ctive B-12 1000 MCG ORAL LOZENGE 1 tab po daily CYANO COBALAMIN 52246867876 Active Tesfaye Shemran MD Active VITAMIN D3 2000 UNIT ORAL TABLET 1 daily, for vitamin D deficien cy CHOLECALCIFEROL 03373964611 No Longer Active Tesfaye Sherman MD Active TIZANIDINE HCL 2 MG ORAL TABLET take 1-2 tablet by mo ut every day at bedtime at 9pm PRN TIZANIDINE HCL 09497046795 Active Tesfaye hewitt MD Active ZITHROMAX 250 MG ORAL TABLET 2 po today, then 1 po q days 2-5 20 15/02/10 AZITHROMYCIN 02117809358 No Longer Active Tesfaye Sherman MD Active BACTRIM DS 800-160 MG ORAL TABLET 1 tab by mouth twice daily 201 03/03/23 TRIMETHOPRIM-SULFAMETHOXAZOLE 79041308130 No Longer Active Umer Sherman MD Active [facility] NIACIN FLUSH FREE 400-100 MG ORAL CAPSULE 1 daily NIACIN-INOSITOL 82822306200 Active Kayla Cooper MD Activ e DIFLUCAN 150 MG ORAL TABLET 1 qd FLUCONAZOL E 11470446055 No Longer Active Kayla Cooper MD Active FLUTICASONE PROPIONATE 50 MCG/ACT NASAL SUSPENSION 1 spray each nostril twice daily FLUTICASONE PROPIONATE 80554685769 Active Umer Sherman MD Active LOVASTATIN 20 MG ORAL TABLET Take 1 tablet by mouth daily LOVASTATIN 62725583378 No Longer Active Tesfaye Sherman MD Acti ve MELOXICAM 7.5 MG ORAL TABLET 1 tablet by mouth daily 2 MELOXICAM 92966681510 No Longer Active Tesfaye Sherman MD Acti ve GABAPENTIN 300 MG ORAL CAPSULE Take two tablets by mouth every e vening GABAPENTIN 59242018683 No Longer Active Edith Burch MD A ctive BACLOFEN 10 MG ORAL TABLET Take one tablet by mouth three times a d ay BACLOFEN 14736505029 Active Kayla Cooper MD Active GABAPENTIN 300 MG ORAL CAPSULE Take two tablets by mouth every e vening GABAPENTIN 300 MG ORAL CAPSULE 461520 GABAPENTIN I nactive MELOXICAM 7.5 MG ORAL TABLET 1 tablet by mouth daily 2 MELOXICAM 7.5 MG ORAL TABLET 904654 MELOXICAM Inactive LOVASTATIN 20 MG ORAL TABLET Take 1 tablet by mouth daily LOVASTATIN 20 MG ORAL TABLET 524481 LOVASTATIN Inactive DIFLUCAN 150 MG ORAL TABLET 1 qd DIFLUCAN 150 MG ORAL TABLET 916274 FLUCONAZOLE Inactive VITAMIN D3 2000 UNIT ORAL TABLET 1 daily, for vitamin D deficien cy VITAMIN D3 2000 UNIT ORAL TABLET CHOLECALCIFEROL Inactive AMOXICILLIN 500 MG ORAL CAPSULE 1 cap by mouth three times a day AMOXICILLIN 500 MG ORAL CAPSULE 065929 AMOXICILLIN Inactive BACTRIM DS 800-160 MG ORAL TABLET 1 tab by mouth twice daily X 10 DAYS BACTRIM DS 800-160 MG ORAL TABLET 637330 TRIMETHOPRIM-SULFAMETHOXAZOLE Inactive TRIMETHOPRIM 100 MG ORAL TABLET 1/2 qd 7 TRIMETHOPRIM 100 MG ORAL TABLET 526573 TRIMETHOPRIM Inactive CETIRIZINE HCL 5 MG ORAL TABLET Take 1 tablet by mouth daily CETIRIZINE HCL 5 MG ORAL TABLET 0754618 CETIRIZINE HCL Inactive PRAMIPEXOLE DIHYDROCHLORIDE 0.125 MG ORAL TABLET take 1 tablet po qhs for restless leg syndrome. PRAMIPEXOLE DIHYD ROCHLORIDE 0.125 MG ORAL TABLET 793047 PRAMIPEXOLE DIHYDROCHLORIDE Inactive MIRTAZAPINE 15 MG ORAL TABLET 1/2 tab by mouth at bedtime. 03/13 MIRTAZAPINE 15 MG ORAL TABLET 300649 MIRTAZAPINE In active DIFLUCAN 100 MG ORAL TABLET 1 tablet by mouth daily X 3 DAYS 201 04/09/01 DIFLUCAN 100 MG ORAL TABLET 797268 FLUCONAZOLE Inac tive DIFLUCAN 100 MG ORAL TABLET 1 tablet by mouth every other da y for 2 doses DIFLUCAN 100 MG ORAL TABLET 795350 FLUCONAZOLE Inactive CEFTIN 250 MG ORAL TABLET 1 tablet twice daily x 7 days CEFTIN 250 MG ORAL TABLET CEFUROXIME AXETIL Inactive CYMBALTA 30 MG ORAL CAPSULE DELAYED RELEASE PARTICLES 1 cap by mouth daily with 60mg CYMBALTA 30 MG ORAL CAPSULE DELAYED RELEASE PARTICLES 918764 DULOXETINE HCL Inactive CYMBALTA 60 MG ORAL CAPSULE DELAYED RELEASE PARTICLES Take 1 tablet by mouth daily CYMBALTA 60 MG ORAL CAPSULE DELAYED RELEA SE PARTICLES 436691 DULOXETINE HCL Inactive FOSAMAX 70 MG ORAL TABLET 1 po qweek. Take 30min prio r to first food/drink. Avoid lying down x 1 hour. FOSAMAX 70 MG ORAL TA BLET 515804 ALENDRONATE SODIUM Inactive DIFLUCAN 100 MG ORAL TABLET 1 tablet by mouth daily 19/08/26 DIFLUCAN 100 MG ORAL TABLET 463671 FLUCONAZOLE Inactive PREDNISONE 20 MG ORAL TABLET 1 tab twice daily for 3 d ay, then one daily for three days PREDNISONE 20 MG ORAL TABLET 459352 PREDNIS ONE Inactive PROAIR HFA 108 (90 BASE) MCG/ACT INHALATION AEROSOL SO LUTION 1 puff every 6 hours as needed PROAIR HFA 108 (90 B ASE) MCG/ACT INHALATION AEROSOL SOLUTION ALBUTEROL SULFATE Inactive MECLIZINE HCL 25 MG ORAL TABLET one tab po qday prn dizziness 20 17/09/06 MECLIZINE HCL 25 MG ORAL TABLET 537058 MECLIZINE HCL Inactive PREDNISONE 20 MG ORAL TABLET 1 tablet by mouth twice d aily for 3 days, then 1 tablet daily for 3 days PREDNISONE 20 MG ORAL TA BLET 828357 PREDNISONE Inactive DIFLUCAN 100 MG ORAL TABLET 1 tablet by mouth daily 20 20/06/06 DIFLUCAN 100 MG ORAL TABLET 419700 FLUCONAZOLE Inactive REPHRESH PRO-B ORAL CAPSULE 1 tablet daily REPHRESH PRO-B ORAL CAPSULE LACTOBACILLUS Inactive RED YEAST RICE 600 MG ORAL CAPSULE 1 pill by mouth daily RED YEAST RICE 600 MG ORAL CAPSULE 059510 RED YEAST RICE EXTRACT In active SUDAFED [...] daily 19/02/09 DIFLUCAN 100 MG ORAL TABLET 470993 FLUCONAZOLE Inactive DIFLUCAN 100 MG ORAL TABLET 1 tablet by mouth daily 19/02/09 DIFLUCAN 100 MG ORAL TABLET 568019 FLUCONAZOLE Inactive VENLAFAXINE HCL 75 MG ORAL TABLET 1 am 1/2 at noon 201 07/07/09 VENLAFAXINE HCL 75 MG ORAL TABLET 748868 VENLAFAXINE HCL Inacti ve GABAPENTIN 300 MG ORAL CAPSULE 1 po daily GABAPENTIN 300 MG ORAL CAPSULE 839678 GABAPENTIN Inactive SUDAFED 12 HOUR 120 MG ORAL TABLET EXTENDED RELEASE 12 HOUR 1 pill twice daily if needed for congestion SUDAFED 12 HOUR 120 MG ORAL TABLET EXTENDED RELEASE 12 HOUR PSEUDOEPHEDRINE HCL Inactive AMITRIPTYLINE HCL 10 MG ORAL TABLET 1 tablet nightly by mout h for neuropathy AMITRIPTYLINE HCL 10 MG ORAL TABLET 029614 AMITRIPTYLINE HCL Inactive BACTRIM DS 800-160 MG ORAL TABLET 1 tab by mouth twice daily 201 03/03/23 BACTRIM DS 800-160 MG ORAL TABLET 307048 TRIMETHOPRIM-SULFAMETHOXAZOLE Inactive ZITHROMAX 250 MG ORAL TABLET 2 po today, then 1 po q days 2-5 20 15/02/10 ZITHROMAX 250 MG ORAL TABLET 843445 AZITHROMYCIN Mayela ctive BACTRIM DS 800-160 MG [...] a day AMOXICILLIN 500 MG ORAL CAPSULE 086729 AMOXICILLIN Inactive ZITHROMAX 250 MG ORAL TABLET 2 po today, then 1 po q days 2-5 20 20/04/28 ZITHROMAX 250 MG ORAL TABLET 698332 AZITHROMYCIN [place] ctive DIFLUCAN 100 MG ORAL TABLET 1 tablet by mouth daily 20 20/05/01 DIFLUCAN 100 MG ORAL TABLET 19760711 FLUCONAZOLE Inactive BACTRIM DS 800-160 MG ORAL TABLET 1 tab by mouth twice daily 201 06/09/02 BACTRIM DS 800-160 MG ORAL TABLET 19830105 TRIMETHOPRIM-SULFAMETHOXAZOLE Inactive HYDROCHLOROTHIAZIDE 12.5 MG ORAL CAPSULE 1 pill by mough daily 2 HYDROCHLOROTHIAZIDE 12.5 MG [facility] In[facility] BACTRIM DS 800-160 MG ORAL TABLET 1 tab by mouth twice daily 201 07/08/06 BACTRIM DS 800-160 MG ORAL TABLET 19830105 TRIMETHOPRIM-SULFAMETHOXAZOLE Inactive DIFLUCAN 100 MG ORAL TABLET 1 tablet by mouth daily 20 19/05/11 DIFLUCAN 100 MG ORAL TABLET 19760711 FLUCONAZOLE Inactive Advance Directives Directive Description Start Date PERMISSION TO SHARE DISCUSSED WITH PATIENT -- NO DECISION MADE DURABLE POWER OF HOGSHEAD BUILDER FOR HEALTHCARE DISCUSED WITH PATIENT -- FULL CODE Vital Signs Date Name Value Unit Range Description blood pressure, diastolic 73 mm[Hg] BP lyon [...] Negative mg/dL Negative sodium, serum 139 mmol/L 245-185 9287/11/07 carbon dioxide, venous blood 28.4 mmol/L 21.0-32 [...] ative Encounters Code Encounter Date Provider Facility CPT-75432 Level 3 Est. Patient 18:06:36 CDT Tesfaye pearson MD [facility] CPT-74471 [id number] Vst-Est Level IV 17:09:34 C BRIDGET Sherman MD [facility] CPT-47380 Level 3 Est. Patient 17:27:08 CDT León Portillo mayajim [facility] CPT-66684 11767-Dru Vst-Est Level IV 14:00:[address] Tesfaye Sherman MD [facility] CPT-50719 31098-Lcs Vst-Est Level IV 19:27:[address] Tesfaye Sherman MD [facility] CPT-58009 24732-Xag Vst-Est Level IV 10:41:41 C BRIDGET Sherman MD [facility] CPT-71962 39378-Pog Vst-Est Level III 09:40:56 CDT Tesfaye Sherman MD [facility] CPT-43732 Level 4 Est. Patient 22:18:12 CDT Tesfaye pearson MD [facility] CPT-00075 Level 4 Est. Patient 14:44:33 SAMPLE EXAMINER Tesfaye pearson MD [facility] CPT-21163 Level 4 Est. Patient 13:55:29 SAMPLE EXAMINER Tesfaye pearson MD [facility] CPT-50014 Level 4 Est. Patient 17:07:34 SAMPLE EXAMINER Tesfaye pearson MD [facility] CPT-11659 Level 4 Est. Patient 13:56:54 CDT Tesfaye pearson MD [facility] CPT-50910 Level 4 Est. Patient 13:24:25 CDT Chelsea sanz [facility] CPT-90960 Level 4 Est. Patient 09:14:56 CDT Tesfaye pearson MD [facility] CPT-64691 Level 4 Est. Patient 18:40:25 SAMPLE EXAMINER Tesfaye pearson MD [facility] CPT-30084 Level 4 Est. Patient 18:13:07 SAMPLE EXAMINER Tesfaye pearson MD [facility] CPT-23425 Level 3 Est. Patient 10:46:32 CDT Rj cotto DO [facility]-23801 Level 4 Est. Patient 20:19:25 CDT Tesfaye pearson MD [facility] CPT-41174 Level 3 Est. Patient 09:07:31 CDT Tesfaye pearson MD [facility]-17987 Level 4 Est. Patient 13:12:56 CDT Tesfaye pearson MD [facility]-76280 Level 4 Est. Patient 21:24:55 SAMPLE EXAMINER Tesfaye pearson MD [facility]-40661 Level 3 Est. Patient 13:45:04 SAMPLE EXAMINER Tesfaye pearson MD [facility] CPT-33124 Level 4 Est. Patient 13:50:45 CDT Tesfaye pearson MD [facility] CPT-92384 Level 3 Est. Patient 10:16:10 CDT Tesfaye pearson MD [facility] CPT-01235 Level 3 Est. Patient 16:36:07 SAMPLE EXAMINER Kayla jameson MD [facility]-15389 Level 4 Est. Patient 16:00:14 SAMPLE EXAMINER Tesfaye pearson MD [facility]-25444 Level 4 Est. Patient 11:02:24 SAMPLE EXAMINER Tesfaye pearson MD [facility] CPT-18305 Level 3 Est. Patient 20:21:43 SAMPLE EXAMINER Kayla jameson MD [facility]-31913 Level 3 Est. Patient 13:27:28 SAMPLE EXAMINER Kayla jameson MD [facility]-27245 Level 4 Est. Patient 15:57:17 SAMPLE EXAMINER Tesfaye pearson MD [facility] CPT-41400 Level 3 New Patient 13:25:47 CDT Tesfaye kidd MD [facility] CPT-03669 Level 3 New Patient 17:22:21 CDT Kayla angel MD [facility] Procedures Code Procedure Name Date Entry Date Standard Desc ription CPT-G0439 Subsequent Annual Wellness Exam 18:06:36 CDT CPT-G0439 Subsequent Annual Wellness Exam 22:18:11 CDT CPT-05304 Bone Density - XRAY USE ONLY 11:43:58 CDT 2 CPT-82083 Bone Density - XRAY USE ONLY 10:05:16 CDT CPT-07108 Prv Med New Pt 40-64 yrs 18:19:25 CDT 2016 CPT-74034 Foot, right, comp min 3V - XRAY USE ONLY 10:38:34 CDT CPT-G0439 Subsequent Annual Wellness Exam 13:55:04 CDT CPT-G0438 Initial Annual Wellness Exam 11:23:17 CD T CPT-J2930 Solu Medrol 125 mg (Methyl Prednisolone Sodium Succinate) 17:29:12 SAMPLE EXAMINER CPT-29242 Abx/Therapy Injection 17:29:11 SAMPLE EXAMINER CPT-J2930 Solu Medrol 125 mg (Methyl Prednisolone Sodium Succinate) 12:34:38 SAMPLE EXAMINER CPT-J3420 Vitamin B12 1000mcg (Cyanocobalamin) 09:12:55 CDT CPT-J3420 Vitamin B12 1000mcg (Cyanocobalamin) 16:28:06 SAMPLE EXAMINER CPT-09934 Venipuncture Draw Fee 08:39:53 CDT CPT-J3420 Vitamin B12 1000mcg (Cyanocobalamin) 08:46:22 CDT CPT-08005 Abx/Therapy Injection 08:46:22 CDT CPT-J3420 Vitamin B12 1000mcg (Cyanocobalamin) 08:41:26 CDT CPT-56643 Abx/Therapy Injection 08:41:26 CDT CPT-J3420 Vitamin B12 1000mcg (Cyanocobalamin) 08:57:15 CDT CPT-53606 Abx/Therapy Injection 08:57:15 CDT CPT-J3420 Vitamin B12 1000mcg (Cyanocobalamin) 10:59:03 CDT CPT-34429 Abx/Therapy Injection 10:59:03 CDT CPT-J3420 Vitamin B12 1000mcg (Cyanocobalamin) 15:05:39 CDT CPT-08255 Abx/Therapy Injection 15:05:39 CDT CPT-J3420 Vitamin B12 1000mcg (Cyanocobalamin) 13:50:45 CDT CPT-J3420 Vitamin B12 1000mcg (Cyanocobalamin) 08:48:55 CDT CPT-74687 Abx/Therapy Injection 08:48:55 CDT CPT-J3420 Vitamin B12 1000mcg (Cyanocobalamin) 09:14:54 CDT CPT-02309 Abx/Therapy Injection 09:14:54 CDT CPT-J3420 Vitamin B12 1000mcg (Cyanocobalamin) 09:06:06 CDT CPT-73261 Abx/Therapy Injection 09:06:06 CDT CPT-J3420 Vitamin B12 1000mcg (Cyanocobalamin) 09:49:14 CDT CPT-68239 Abx/Therapy Injection 09:49:14 CDT CPT-J3420 Vitamin B12 1000mcg (Cyanocobalamin) 09:10:30 SAMPLE EXAMINER CPT-47687 Abx/Therapy Injection 09:10:30 SAMPLE EXAMINER CPT-J3420 Vitamin B12 1000mcg (Cyanocobalamin) 09:11:07 SAMPLE EXAMINER CPT-93821 Abx/Therapy Injection 09:11:07 SAMPLE EXAMINER CPT-J3420 Vitamin B12 1000mcg (Cyanocobalamin) 09:57:03 SAMPLE EXAMINER CPT-19509 Abx/Therapy Injection 09:57:03 SAMPLE EXAMINER CPT-J3420 Vitamin B12 1000mcg (Cyanocobalamin) 09:23:21 SAMPLE EXAMINER CPT-45065 Abx/Therapy Injection 09:23:21 SAMPLE EXAMINER CPT-00742 Urine Dip (Floor Use Only) 20:21:44 SAMPLE EXAMINER 201 02/12/11 CPT-73363 UA Dip Auto (Floor Use Only) 10:04:39 SAMPLE EXAMINER 2 CPT-91148 Urine Dip (Floor Use Only) 13:27:28 SAMPLE EXAMINER 201 02/12/01 CPT-64790 Bladder Scan 13:27:28 SAMPLE EXAMINER CPT-26318 Abd single AP View 14:30:51 SAMPLE EXAMINER CPT-OV Office Visit 10:15:43 CDT CPT-74256 Urine Dip (Floor Use Only) 17:22:21 CDT 201 02/09/02 CPT-72399 Bladder Scan 17:22:21 CDT
--- OUTSIDE RECORDS SUMMARY | 2020-05-05 11:27 | XMS REPORT | Clinical Summary ---
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 Tesfaye Sherman MD Long-term (current) drug use Yeast infection 112.9 Inactive Tesfaye Sherman MD Candidiasis of unspecified site Upper respiratory infection 465.9 Inactive Tesfaye Sherman MD Acute upper respiratory infections of un specified site Lower extremity edema, bilateral 782.3 Active 201 07/07/09 León Kodi WEB SITE PROJECT MANAGER Edema Peripheral neuropathy 356.9 Active Tesfaye [...] po q hs for sleep AMITRIPTYLINE HCL 91241378890 Active MARCUS Maravilla Active AMITRIPTYLINE HCL 10 MG ORAL TABLET 1 tablet nightly by mout h for neuropathy AMITRIPTYLINE HCL 83214282014 No Longer Active MARCUS Stapleton Active PREDNISONE 20 MG ORAL TABLET 1 tab twice daily for 3 d ay, then one daily for three days PREDNISONE 80071725985 Active Tesfaye Sherman MD Active DIFLUCAN 100 MG ORAL TABLET 1 tablet by mouth daily 20 21/03/11 FLUCONAZOLE 09607022604 No Longer Active Tesfaye Sherman MD Acti ve BACTRIM DS 800-160 MG ORAL TABLET 1 tab by mouth twice daily 201 07/08/06 TRIMETHOPRIM-SULFAMETHOXAZOLE 97910226107 No Longer Active Umer Sherman MD Active CLARITIN 10 MG ORAL TABLET Take one by mouth daily LORATADINE 47453944574 Active Tesfaye Sherman MD Active SUDAFED 12 HOUR 120 MG ORAL TABLET EXTENDED RELEASE 12 HOUR 1 pill twice daily if needed for congestion PSEUDOEPHEDRINE HCL 347639873 13 No Longer Active Tesfaye Sherman MD Active FENOFIBRATE 145 MG ORAL TABLET 1 by mouth daily FENOFIBRATE 99361386581 Active Laurence Dominguez Active GABAPENTIN 300 MG ORAL CAPSULE 1 po daily GABAP ENTIN 38837730797 No Longer Active Tesfaye Sherman MD Active HYDROCHLOROTHIAZIDE 12.5 MG ORAL CAPSULE 1 pill by mough daily 2 HYDROCHLOROTHIAZIDE 63051101354 No Longer Active León Mariee APRN Active VENLAFAXINE HCL 75 MG ORAL TABLET 1 am 1/2 at noon 201 07/07/09 VENLAFAXINE HCL 79786582618 No Longer Active León Mariee APRN Act trent DIFLUCAN 100 MG ORAL TABLET 1 tablet by mouth daily 20 19/02/09 FLUCONAZOLE 64656940770 No Longer Active León Mariee APRN Active DIFLUCAN 100 MG ORAL TABLET 1 tablet by mouth daily 19/02/09 FLUCONAZOLE 11879177307 No Longer Active Leónkash Mariee APRN Active OXYCODONE-ACETAMINOPHEN 5-325 MG ORAL TABLET Take one tablet by mouth every 6 hours 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 Use sparingly OXYCODONE-ACETAMINOPHEN 86728143297 Active Tesfaye villar MD Active CLONAZEPAM 0.5 MG ORAL TABLET Take 1/2 qam, and 1/2 qpm CLONAZEPAM 80767288726 Active Tesfaye Sherman MD Active PRELIEF 340 (65-50) MG (CA-P) ORAL TABLET CALCIUM GLYCEROPHOSPHATE 72375943541 No Longer Active Tesfaye Sherman MD Active SUDAFED 24 HOUR 240 MG ORAL TABLET EXTENDED RELEASE 24 HOUR 1 tab po daily PSEUDOEPHEDRINE HCL 55583482995 No Longer Active Raul Sherman MD Active RED YEAST RICE 600 MG ORAL CAPSULE 1 pill by mouth daily RED YEAST RICE EXTRACT 85975184359 No Longer Active Tesfaye Sherman MD Active REPHRESH PRO-B ORAL CAPSULE 1 tablet daily LACT OBACILLUS 77029608983 No Longer Active Tesfaye Sherman MD Active ABILIFY 2 MG ORAL TABLET 1 by mouth daily. MARIA ELENA PIPRAZOLE 39591943985 Active Tesfaye Sherman MD Active CYMBALTA 60 MG ORAL CAPSULE DELAYED RELEASE PARTICLES 1 cap by mouth daily for pain DULOXETINE HCL 29305075390 Active MARCUS Lindsay Active DIFLUCAN 100 MG ORAL TABLET 1 tablet by mouth daily 20/06/06 FLUCONAZOLE 81693661198 No Longer Active Tesfaye Sherman MD Acti ve PREDNISONE 20 MG ORAL TABLET 1 tablet by mouth twice d aily for 3 days, then 1 tablet daily for 3 days PREDNISONE 14814083793 No L onger Active Tesfaye Sherman MD Active BACTRIM DS 800-160 MG ORAL TABLET 1 tab by mouth twice daily 201 06/09/02 TRIMETHOPRIM-SULFAMETHOXAZOLE 11462431633 No Longer Active A mirna ida Active DIFLUCAN 100 MG ORAL TABLET 1 tablet by mouth daily 20 20/05/01 FLUCONAZOLE 85111549605 No Longer Active Tesfaye Sherman MD Acti ve ZITHROMAX 250 MG ORAL TABLET 2 po today, then 1 po q days 2-5 20 20/04/28 AZITHROMYCIN 50166501839 No Longer Active Tesfaye Sherman MD Active MECLIZINE HCL 25 MG ORAL TABLET one tab po qday prn dizziness 20 17/09/06 MECLIZINE HCL 34282959885 No Longer Active Tesfaye Sherman MD Active PROAIR HFA 108 (90 BASE) MCG/ACT INHALATION AEROSOL SO LUTION 1 puff every 6 hours as needed ALBUTEROL SULFATE 62703504965 No Long er Active Tesfaye Sherman MD Active PREDNISONE 20 MG ORAL TABLET 1 tab twice daily for 3 d ay, then one daily for three days PREDNISONE 66244675372 No Longer Active Tesfaye Sherman MD Active MECLIZINE HCL 25 MG ORAL TABLET one 4 times a day as needed for dizziness MECLIZINE HCL 58314582783 Active Tesfaye Sherman MD Active AMOXICILLIN 500 MG ORAL CAPSULE 1 cap by mouth three times a day AMOXICILLIN 83738375402 No Longer Active Laurence Angelica Acti ve DIFLUCAN 100 MG ORAL TABLET 1 tablet by mouth daily 20 19/08/26 FLUCONAZOLE 35075731006 No Longer Active Tesfaye Sherman MD Acti ve BACTRIM DS 800-160 MG ORAL TABLET 1 tab by mouth twice daily 201 05/10/28 TRIMETHOPRIM-SULFAMETHOXAZOLE 94651409762 No Longer Active A mirna Raduyen Active FOSAMAX 70 MG ORAL TABLET 1 po qweek. Take 30min prio r to first food/drink. Avoid lying down x 1 hour. ALENDRONATE SODIUM 50956369 144 No Longer Active Luarence Dominguez Active CYMBALTA 60 MG ORAL CAPSULE DELAYED RELEASE PARTICLES Take 1 tablet by mouth daily DULOXETINE HCL 08542826980 No Longer Active Edith Burch MD Active CYMBALTA 30 MG ORAL CAPSULE DELAYED RELEASE PARTICLES 1 cap by mouth daily with 60mg DULOXETINE HCL 73782688669 No Longer Active Jordan Burch MD Active FISH OIL 1000 MG ORAL CAPSULE DELAYED RELEASE 1 pill b y mouth daily for cholesterol OMEGA-3 FATTY ACIDS 21770936339 Active Cee Jaffe LPN Active DIFLUCAN 100 MG ORAL TABLET 1 tablet by mouth daily 19/03/05 FLUCONAZOLE 72144266115 No Longer Active Tesfaye Sherman MD Acti ve BACTRIM DS 800-160 MG ORAL TABLET 1 tab by mouth twice daily 201 05/06/28 TRIMETHOPRIM-SULFAMETHOXAZOLE 12349542031 No Longer Active Umer Sherman MD Active BACTRIM DS 800-160 MG ORAL TABLET 1 tab by mouth twice daily 201 05/04/15 TRIMETHOPRIM-SULFAMETHOXAZOLE 93595034862 No Longer Active Umer Sherman MD Active DIFLUCAN 150 MG ORAL TABLET 1 tablet by mouth daily 20 18/09/20 FLUCONAZOLE 99424472615 No Longer Active Tesfaye Sherman MD Acti ve BACTRIM DS 800-160 MG ORAL TABLET 1 tab by mouth twice daily 201 04/13/17 TRIMETHOPRIM-SULFAMETHOXAZOLE 71355598514 No Longer Active Umer Sherman MD Active ROPINIROLE HCL 0.25 MG ORAL TABLET 1 TAB PO Q HS ROPINIROLE HCL 82642331853 Active Tesfaye Sherman MD Active CEFTIN 250 MG ORAL TABLET 1 tablet twice daily x 7 days CEFUROXIME AXETIL 86627615774 No Longer Active Tesfaye Sherman MD Active DIFLUCAN 100 MG ORAL TABLET 1 tablet by mouth every other da y for 2 doses FLUCONAZOLE 88493715661 No Longer Active Tesfaye barron MD Active DIFLUCAN 100 MG ORAL TABLET 1 tablet by mouth daily X 3 DAYS 201 04/09/01 FLUCONAZOLE 07311223840 No Longer Active Rj Lyons tive MIRTAZAPINE 15 MG ORAL TABLET 1/2 tab by mouth at bedtime. 03/13 MIRTAZAPINE 53522786493 No Longer Active Tesfaye Sherman MD Active BACTRIM DS 800-160 MG ORAL TABLET 1 tab by mouth twice daily 201 04/09/01 TRIMETHOPRIM-SULFAMETHOXAZOLE 32274923293 No Longer Active D patricia Sherman MD Active PRAMIPEXOLE DIHYDROCHLORIDE 0.125 MG ORAL TABLET take 1 tablet po qhs for restless leg syndrome. PRAMIPEXOLE DIHYDROCHLORI DE 68686202920 No Longer Active Tesfaye Sherman MD Active MAGNESIUM 400 MG ORAL TABLET 1 tab po daily MAGNE SIUM 76604078378 Active Chelsea Cardenas APRN Active CETIRIZINE HCL 5 MG ORAL TABLET Take 1 tablet by mouth daily CETIRIZINE HCL 48811370960 No Longer Active Chelsea Cardenas APRN Activ e TRIMETHOPRIM 100 MG ORAL TABLET 1/2 qd TRIM ETHOPRIM 58150461130 No Longer Active Chelsea Cardenas APRN Active BACTRIM DS 800-160 MG ORAL TABLET 1 tab by mouth twice daily 201 04/04/11 TRIMETHOPRIM-SULFAMETHOXAZOLE 09003772363 No Longer Active Umer Sherman MD Active BACTRIM DS 800-160 MG ORAL TABLET 1 tab by mouth twice daily X 10 DAYS TRIMETHOPRIM-SULFAMETHOXAZOLE 01327828474 No Longer Active Tesfaye Sherman MD Active AMOXICILLIN 500 MG ORAL CAPSULE 1 cap by mouth three times a day AMOXICILLIN 41267011622 No Longer Active MARCUS Maravilla ctive B-12 1000 MCG ORAL LOZENGE 1 tab po daily CYANO COBALAMIN 21781156646 Active Tesfaye Sherman MD Active VITAMIN D3 2000 UNIT ORAL TABLET 1 daily, for vitamin D deficien cy CHOLECALCIFEROL 60205672647 No Longer Active Tesfaye Sherman MD Active TIZANIDINE HCL 2 MG ORAL TABLET take 1-2 tablet by mo ut every day at bedtime at 9pm PRN TIZANIDINE HCL 07447680685 Active Tesfaye hewitt MD Active ZITHROMAX 250 MG ORAL TABLET 2 po today, then 1 po q days 2-5 20 15/02/10 AZITHROMYCIN 35866228014 No Longer Active Tesfaye Sherman MD Active BACTRIM DS 800-160 MG ORAL TABLET 1 tab by mouth twice daily 201 03/03/23 TRIMETHOPRIM-SULFAMETHOXAZOLE 00307366381 No Longer Active Umer Sherman MD Active [facility] NIACIN FLUSH FREE 400-100 MG ORAL CAPSULE 1 daily NIACIN-INOSITOL 06979199025 Active Kayla Cooper MD Activ e DIFLUCAN 150 MG ORAL TABLET 1 qd FLUCONAZOL E 46451581860 No Longer Active Kayla Cooper MD Active FLUTICASONE PROPIONATE 50 MCG/ACT NASAL SUSPENSION 1 spray each nostril twice daily FLUTICASONE PROPIONATE 43366703237 Active Umer Sherman MD Active LOVASTATIN 20 MG ORAL TABLET Take 1 tablet by mouth daily LOVASTATIN 46299096433 No Longer Active Tesfaye Sherman MD Acti ve MELOXICAM 7.5 MG ORAL TABLET 1 tablet by mouth daily 2 MELOXICAM 86610848819 No Longer Active Tesfaye Sherman MD Acti ve GABAPENTIN 300 MG ORAL CAPSULE Take two tablets by mouth every e vening GABAPENTIN 33501281272 No Longer Active Edith Burch MD A ctive BACLOFEN 10 MG ORAL TABLET Take one tablet by mouth three times a d ay BACLOFEN 31698021223 Active Kayla Cooper MD Active GABAPENTIN 300 MG ORAL CAPSULE Take two tablets by mouth every e vening GABAPENTIN 300 MG ORAL CAPSULE 452863 GABAPENTIN I nactive MELOXICAM 7.5 MG ORAL TABLET 1 tablet by mouth daily 2 MELOXICAM 7.5 MG ORAL TABLET 842304 MELOXICAM Inactive LOVASTATIN 20 MG ORAL TABLET Take 1 tablet by mouth daily LOVASTATIN 20 MG ORAL TABLET 193217 LOVASTATIN Inactive DIFLUCAN 150 MG ORAL TABLET 1 qd DIFLUCAN 150 MG ORAL TABLET 527479 FLUCONAZOLE Inactive VITAMIN D3 2000 UNIT ORAL TABLET 1 daily, for vitamin D deficien cy VITAMIN D3 2000 UNIT ORAL TABLET CHOLECALCIFEROL Inactive AMOXICILLIN 500 MG ORAL CAPSULE 1 cap by mouth three times a day AMOXICILLIN 500 MG ORAL CAPSULE 978618 AMOXICILLIN Inactive BACTRIM DS 800-160 MG ORAL TABLET 1 tab by mouth twice daily X 10 DAYS BACTRIM DS 800-160 MG ORAL TABLET 813757 TRIMETHOPRIM-SULFAMETHOXAZOLE Inactive TRIMETHOPRIM 100 MG ORAL TABLET 1/2 qd 7 TRIMETHOPRIM 100 MG ORAL TABLET 143876 TRIMETHOPRIM Inactive CETIRIZINE HCL 5 MG ORAL TABLET Take 1 tablet by mouth daily CETIRIZINE HCL 5 MG ORAL TABLET 8738620 CETIRIZINE HCL Inactive PRAMIPEXOLE DIHYDROCHLORIDE 0.125 MG ORAL TABLET take 1 tablet po qhs for restless leg syndrome. PRAMIPEXOLE DIHYD ROCHLORIDE 0.125 MG ORAL TABLET 960930 PRAMIPEXOLE DIHYDROCHLORIDE Inactive MIRTAZAPINE 15 MG ORAL TABLET 1/2 tab by mouth at bedtime. 03/13 MIRTAZAPINE 15 MG ORAL TABLET 842400 MIRTAZAPINE In active DIFLUCAN 100 MG ORAL TABLET 1 tablet by mouth daily X 3 DAYS 201 04/09/01 DIFLUCAN 100 MG ORAL TABLET 388803 FLUCONAZOLE Inac tive DIFLUCAN 100 MG ORAL TABLET 1 tablet by mouth every other da y for 2 doses DIFLUCAN 100 MG ORAL TABLET 867123 FLUCONAZOLE Inactive CEFTIN 250 MG ORAL TABLET 1 tablet twice daily x 7 days CEFTIN 250 MG ORAL TABLET CEFUROXIME AXETIL Inactive CYMBALTA 30 MG ORAL CAPSULE DELAYED RELEASE PARTICLES 1 cap by mouth daily with 60mg CYMBALTA 30 MG ORAL CAPSULE DELAYED RELEASE PARTICLES 117131 DULOXETINE HCL Inactive CYMBALTA 60 MG ORAL CAPSULE DELAYED RELEASE PARTICLES Take 1 tablet by mouth daily CYMBALTA 60 MG ORAL CAPSULE DELAYED RELEA SE PARTICLES 523724 DULOXETINE HCL Inactive FOSAMAX 70 MG ORAL TABLET 1 po qweek. Take 30min prio r to first food/drink. Avoid lying down x 1 hour. FOSAMAX 70 MG ORAL TA BLET 959650 ALENDRONATE SODIUM Inactive DIFLUCAN 100 MG ORAL TABLET 1 tablet by mouth daily 19/08/26 DIFLUCAN 100 MG ORAL TABLET 850536 FLUCONAZOLE Inactive PREDNISONE 20 MG ORAL TABLET 1 tab twice daily for 3 d ay, then one daily for three days PREDNISONE 20 MG ORAL TABLET 487426 PREDNIS ONE Inactive PROAIR HFA 108 (90 BASE) MCG/ACT INHALATION AEROSOL SO LUTION 1 puff every 6 hours as needed PROAIR HFA 108 (90 B ASE) MCG/ACT INHALATION AEROSOL SOLUTION ALBUTEROL SULFATE Inactive MECLIZINE HCL 25 MG ORAL TABLET one tab po qday prn dizziness 20 17/09/06 MECLIZINE HCL 25 MG ORAL TABLET 812825 MECLIZINE HCL Inactive PREDNISONE 20 MG ORAL TABLET 1 tablet by mouth twice d aily for 3 days, then 1 tablet daily for 3 days PREDNISONE 20 MG ORAL TA BLET 897755 PREDNISONE Inactive DIFLUCAN 100 MG ORAL TABLET 1 tablet by mouth daily 20 20/06/06 DIFLUCAN 100 MG ORAL TABLET 582962 FLUCONAZOLE Inactive REPHRESH PRO-B ORAL CAPSULE 1 tablet daily REPHRESH PRO-B ORAL CAPSULE LACTOBACILLUS Inactive RED YEAST RICE 600 MG ORAL CAPSULE 1 pill by mouth daily RED YEAST RICE 600 MG ORAL CAPSULE 958735 RED YEAST RICE EXTRACT In active SUDAFED [...] daily 19/02/09 DIFLUCAN 100 MG ORAL TABLET 200101 FLUCONAZOLE Inactive DIFLUCAN 100 MG ORAL TABLET 1 tablet by mouth daily 19/02/09 DIFLUCAN 100 MG ORAL TABLET 797584 FLUCONAZOLE Inactive VENLAFAXINE HCL 75 MG ORAL TABLET 1 am 1/2 at noon 201 07/07/09 VENLAFAXINE HCL 75 MG ORAL TABLET 015581 VENLAFAXINE HCL Inacti ve GABAPENTIN 300 MG ORAL CAPSULE 1 po daily GABAPENTIN 300 MG ORAL CAPSULE 653650 GABAPENTIN Inactive SUDAFED 12 HOUR 120 MG ORAL TABLET EXTENDED RELEASE 12 HOUR 1 pill twice daily if needed for congestion SUDAFED 12 HOUR 120 MG ORAL TABLET EXTENDED RELEASE 12 HOUR PSEUDOEPHEDRINE HCL Inactive AMITRIPTYLINE HCL 10 MG ORAL TABLET 1 tablet nightly by mout h for neuropathy AMITRIPTYLINE HCL 10 MG ORAL TABLET 200436 AMITRIPTYLINE HCL Inactive BACTRIM DS 800-160 MG ORAL TABLET 1 tab by mouth twice daily 201 03/03/23 BACTRIM DS 800-160 MG ORAL TABLET 240339 TRIMETHOPRIM-SULFAMETHOXAZOLE Inactive ZITHROMAX 250 MG ORAL TABLET 2 po today, then 1 po q days 2-5 20 15/02/10 ZITHROMAX 250 MG ORAL TABLET 743516 AZITHROMYCIN [place] ctive BACTRIM DS 800-160 MG ORAL TABLET [...] a day AMOXICILLIN 500 MG ORAL CAPSULE 106700 AMOXICILLIN Inactive ZITHROMAX 250 MG ORAL TABLET 2 po today, then 1 po q days 2-5 20 20/04/28 ZITHROMAX 250 MG ORAL TABLET 745357 AZITHROMYCIN [place] ctive DIFLUCAN 100 MG ORAL TABLET 1 tablet by mouth daily 20 20/05/01 DIFLUCAN 100 MG ORAL TABLET 19760711 FLUCONAZOLE Inactive BACTRIM DS 800-160 MG ORAL TABLET 1 tab by mouth twice daily 201 06/09/02 BACTRIM DS 800-160 MG ORAL TABLET 19830105 TRIMETHOPRIM-SULFAMETHOXAZOLE Inactive HYDROCHLOROTHIAZIDE 12.5 MG ORAL CAPSULE 1 pill by mough daily 2 HYDROCHLOROTHIAZIDE 12.5 MG ORAL CAPSULE [facility] L[facility] Inactive BACTRIM DS 800-160 [...] -- NO DECISION MADE DURABLE POWER OF SIDING INSTALLER FOR HEALTHCARE DISCUSED WITH PATIENT -- FULL [...] Negative mg/dL Negative sodium, serum 139 mmol/L 711-592 7297/11/07 carbon dioxide, venous blood 28.4 mmol/L 21.0-32 [...] ative Encounters Code Encounter Date Provider Facility CPT-24832 Level 3 Est. Patient 18:06:36 CDT Tesfaye pearson MD [facility] CPT-49485 [id number] Vst-Est Level IV 17:09:34 C BRIDGET Sherman MD [facility] CPT-89161 Level 3 Est. Patient 17:27:08 CDT León Portillo mayajim [facility] CPT-17225 [id number] Vst-Est Level IV 14:00:[address] Tesfaye Sherman MD [facility] CPT-36287 [id number]-Pls Vst-Est Level IV 19:27:[address] Tesfaye Sherman MD [facility] CPT-04323 [id number] Vst-Est Level IV 10:41:41 C BRIDGET Sherman MD [facility] CPT-33503 [id number] Vst-Est Level III 09:40:56 CDT Tesfaye Sherman MD [facility] CPT-64754 Level 4 Est. Patient 22:18:12 CDT Tesfaye pearson MD [facility] CPT-05673 Level 4 Est. Patient 14:44:33 BED MANAGER Tesfaye pearson MD [facility] CPT-88192 Level 4 Est. Patient 13:55:29 BED MANAGER Tesfaye pearson MD [facility] CPT-58689 Level 4 Est. Patient 17:07:34 BED MANAGER Tesfaye pearson MD [facility] CPT-03924 Level 4 Est. Patient 13:56:54 CDT Tesfaye pearson MD [facility] CPT-00273 Level 4 Est. Patient 13:24:25 CDT Chelsea sanz [facility] CPT-33208 Level 4 Est. Patient 09:14:56 CDT Tesfaye pearson MD [facility] CPT-80875 Level 4 Est. Patient 18:40:25 BED MANAGER Tesfaye pearson MD [facility] CPT-04814 Level 4 Est. Patient 18:13:07 BED MANAGER Tesfaye pearson MD [facility] CPT-95172 Level 3 Est. Patient 10:46:32 CDT Rj cotto DO [facility]-04366 Level 4 Est. Patient 20:19:25 CDT Tesfaye pearson MD [facility] CPT-89459 Level 3 Est. Patient 09:07:31 CDT Tesfaye pearson MD [facility]-54030 Level 4 Est. Patient 13:12:56 CDT Tesfaye pearson MD [facility]-09957 Level 4 Est. Patient 21:24:55 BED MANAGER Tesfaye pearson MD [facility]-96513 Level 3 Est. Patient 13:45:04 BED MANAGER Tesfaye pearson MD [facility] CPT-35154 Level 4 Est. Patient 13:50:45 CDT Tesfaye pearson MD [facility] CPT-11669 Level 3 Est. Patient 10:16:10 CDT Tesfaye pearson MD [facility] CPT-18613 Level 3 Est. Patient 16:36:07 BED MANAGER Kayla jameson MD [facility]-15940 Level 4 Est. Patient 16:00:14 BED MANAGER Tesfaye pearson MD [facility]-76473 Level 4 Est. Patient 11:02:24 BED MANAGER Tesfaye pearson MD [facility] CPT-08393 Level 3 Est. Patient 20:21:43 BED MANAGER Kayla jameson MD [facility]-25766 Level 3 Est. Patient 13:27:28 BED MANAGER Kayla jameson MD [facility]-84926 Level 4 Est. Patient 15:57:17 BED MANAGER Tesfaye pearson MD [facility] CPT-17078 Level 3 New Patient 13:25:47 CDT Tesfaye kidd MD [facility] CPT-98512 Level 3 New Patient 17:22:21 CDT Kayla angel MD [facility] Procedures Code Procedure Name Date Entry Date Standard Desc ription CPT-G0439 Subsequent Annual Wellness Exam 18:06:36 CDT CPT-G0439 Subsequent Annual Wellness Exam 22:18:11 CDT CPT-22693 Bone Density - XRAY USE ONLY 11:43:58 CDT 2 CPT-53695 Bone Density - XRAY USE ONLY 10:05:16 CDT CPT-44022 Prv Med New Pt 40-64 yrs 18:19:25 CDT 2016 CPT-50826 Foot, right, comp min 3V - XRAY USE ONLY 10:38:34 CDT CPT-G0439 Subsequent Annual Wellness Exam 13:55:04 CDT CPT-G0438 Initial Annual Wellness Exam 11:23:17 CD T CPT-J2930 Solu Medrol 125 mg (Methyl Prednisolone Sodium Succinate) 17:29:12 BED MANAGER CPT-19631 Abx/Therapy Injection 17:29:11 BED MANAGER CPT-J2930 Solu Medrol 125 mg (Methyl Prednisolone Sodium Succinate) 12:34:38 BED MANAGER CPT-J3420 Vitamin B12 1000mcg (Cyanocobalamin) 09:12:55 CDT CPT-J3420 Vitamin B12 1000mcg (Cyanocobalamin) 16:28:06 BED MANAGER CPT-46929 Venipuncture Draw Fee 08:39:53 CDT CPT-J3420 Vitamin B12 1000mcg (Cyanocobalamin) 08:46:22 CDT CPT-07116 Abx/Therapy Injection 08:46:22 CDT CPT-J3420 Vitamin B12 1000mcg (Cyanocobalamin) 08:41:26 CDT CPT-28487 Abx/Therapy Injection 08:41:26 CDT CPT-J3420 Vitamin B12 1000mcg (Cyanocobalamin) 08:57:15 CDT CPT-83960 Abx/Therapy Injection 08:57:15 CDT CPT-J3420 Vitamin B12 1000mcg (Cyanocobalamin) 10:59:03 CDT CPT-13136 Abx/Therapy Injection 10:59:03 CDT CPT-J3420 Vitamin B12 1000mcg (Cyanocobalamin) 15:05:39 CDT CPT-16306 Abx/Therapy Injection 15:05:39 CDT CPT-J3420 Vitamin B12 1000mcg (Cyanocobalamin) 13:50:45 CDT CPT-J3420 Vitamin B12 1000mcg (Cyanocobalamin) 08:48:55 CDT CPT-97684 Abx/Therapy Injection 08:48:55 CDT CPT-J3420 Vitamin B12 1000mcg (Cyanocobalamin) 09:14:54 CDT CPT-27566 Abx/Therapy Injection 09:14:54 CDT CPT-J3420 Vitamin B12 1000mcg (Cyanocobalamin) 09:06:06 CDT CPT-50712 Abx/Therapy Injection 09:06:06 CDT CPT-J3420 Vitamin B12 1000mcg (Cyanocobalamin) 09:49:14 CDT CPT-05692 Abx/Therapy Injection 09:49:14 CDT CPT-J3420 Vitamin B12 1000mcg (Cyanocobalamin) 09:10:30 BED MANAGER CPT-83230 Abx/Therapy Injection 09:10:30 BED MANAGER CPT-J3420 Vitamin B12 1000mcg (Cyanocobalamin) 09:11:07 BED MANAGER CPT-91613 Abx/Therapy Injection 09:11:07 BED MANAGER CPT-J3420 Vitamin B12 1000mcg (Cyanocobalamin) 09:57:03 BED MANAGER CPT-93211 Abx/Therapy Injection 09:57:03 BED MANAGER CPT-J3420 Vitamin B12 1000mcg (Cyanocobalamin) 09:23:21 BED MANAGER CPT-99705 Abx/Therapy Injection 09:23:21 BED MANAGER CPT-52312 Urine Dip (Floor Use Only) 20:21:44 BED MANAGER 201 02/12/11 CPT-67010 UA Dip Auto (Floor Use Only) 10:04:39 BED MANAGER 2 CPT-61229 Urine Dip (Floor Use Only) 13:27:28 BED MANAGER 201 02/12/01 CPT-29874 Bladder Scan 13:27:28 BED MANAGER CPT-57839 Abd single AP View 14:30:51 BED MANAGER CPT-OV Office Visit 10:15:43 CDT CPT-51791 Urine Dip (Floor Use Only) 17:22:21 CDT 201 02/09/02 CPT-59649 Bladder Scan 17:22:21 CDT
--- OUTSIDE RECORDS SUMMARY | 2020-05-05 11:27 | XMS REPORT | Clinical Summary ---
Author Author Talon, Jeri Wood Organization [employer] Address Unknown Phone Unavailable Allergies, Adverse Reactions, [...] MD Routine [facility] Body Mass Index 21.0-21.9 Adult [...] unspecified Personal history of fall V15.88 Active Tesfaey Sherman MD Personal history of fall Rheumatoid arthritis, chronic 714.0 Active 04/05 Tesfaye Sherman MD Rheumatoid arthritis Vertigo 780.4 Resolved Tesfaye Sherman MD Dizziness and giddiness Body Mass Index 20.0-20.9 Adult Resolved 2018 Tesfaye Sherman MD Body Mass Index between 19-24, adult Dysuria 788.1 Resolved Tesfaye Sherman MD Dysuria High risk meds 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 Tesfaye Sherman MD Long-term (current) drug use Yeast infection 112.9 Inactive Tesfaye Sherman MD Candidiasis of unspecified site Upper respiratory infection 465.9 Inactive Tesfaye Sherman MD Acute upper respiratory infections of un specified site Lower extremity edema, bilateral 782.3 Active 201 07/07/09 León Kodi SYSTEM ADMINISTRATION ADVISOR Edema Peripheral neuropathy 356.9 Active Tesfaye lamb [...] MD 201 07/05/07 Depression ICD-311 Inactive Tesfaye Shreman MD Toe pain, right ICD-729.5 Inactive Tesfaye [...] po q hs for sleep AMITRIPTYLINE HCL 96012421793 Active MARCUS Maravilla Active AMITRIPTYLINE HCL 10 MG ORAL TABLET 1 tablet nightly by mout h for neuropathy AMITRIPTYLINE HCL 09809662990 No Longer Active MARCUS Stapleton Active PREDNISONE 20 MG ORAL TABLET 1 tab twice daily for 3 d ay, then one daily for three days PREDNISONE 22135629524 Active Tesfaye Sherman MD Active DIFLUCAN 100 MG ORAL TABLET 1 tablet by mouth daily 20 21/03/11 FLUCONAZOLE 53825649983 No Longer Active Tesfaye Sherman MD Acti ve BACTRIM DS 800-160 MG ORAL TABLET 1 tab by mouth twice daily 201 07/08/06 TRIMETHOPRIM-SULFAMETHOXAZOLE 49194786550 No Longer Active Umer Sherman MD Active CLARITIN 10 MG ORAL TABLET Take one by mouth daily LORATADINE 59753707383 Active Tesfaye Sherman MD Active SUDAFED 12 HOUR 120 MG ORAL TABLET EXTENDED RELEASE 12 HOUR 1 pill twice daily if needed for congestion PSEUDOEPHEDRINE HCL 413046648 13 No Longer Active Tesfaye Sherman MD Active FENOFIBRATE 145 MG ORAL TABLET 1 by mouth daily FENOFIBRATE 57533644622 Active Laurence Dominguez Active GABAPENTIN 300 MG ORAL CAPSULE 1 po daily GABAP ENTIN 99605255530 No Longer Active Tesfaye Sherman MD Active HYDROCHLOROTHIAZIDE 12.5 MG ORAL CAPSULE 1 pill by mough daily 2 HYDROCHLOROTHIAZIDE 71554707859 No Longer Active León Mariee APRN Active VENLAFAXINE HCL 75 MG ORAL TABLET 1 am 1/2 at noon 201 07/07/09 VENLAFAXINE HCL 74513962893 No Longer Active León Mariee APRN Act trent DIFLUCAN 100 MG ORAL TABLET 1 tablet by mouth daily 20 19/02/09 FLUCONAZOLE 85632701132 No Longer Active León Mariee APRN Active DIFLUCAN 100 MG ORAL TABLET 1 tablet by mouth daily 19/02/09 FLUCONAZOLE 62494440286 No Longer Active Leónkash Mariee APRN Active OXYCODONE-ACETAMINOPHEN 5-325 MG ORAL TABLET Take one tablet by mouth every 6 hours 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 Use sparingly OXYCODONE-ACETAMINOPHEN 57131769438 Active Tesfaye villar MD Active CLONAZEPAM 0.5 MG ORAL TABLET Take 1/2 qam, and 1/2 qpm CLONAZEPAM 68094526255 Active Tesfaye Sherman MD Active PRELIEF 340 (65-50) MG (CA-P) ORAL TABLET CALCIUM GLYCEROPHOSPHATE 73561124593 No Longer Active Tesfaye Sherman MD Active SUDAFED 24 HOUR 240 MG ORAL TABLET EXTENDED RELEASE 24 HOUR 1 tab po daily PSEUDOEPHEDRINE HCL 92322594685 No Longer Active Raul Sherman MD Active RED YEAST RICE 600 MG ORAL CAPSULE 1 pill by mouth daily RED YEAST RICE EXTRACT 62703518958 No Longer Active Tesfaye Sherman MD Active REPHRESH PRO-B ORAL CAPSULE 1 tablet daily LACT OBACILLUS 98591578055 No Longer Active Tesfaye Sherman MD Active ABILIFY 2 MG ORAL TABLET 1 by mouth daily. MARIA ELENA PIPRAZOLE 21463042619 Active Tesfaye Sherman MD Active CYMBALTA 60 MG ORAL CAPSULE DELAYED RELEASE PARTICLES 1 cap by mouth daily for pain DULOXETINE HCL 05005535242 Active MARCUS Lindsay Active DIFLUCAN 100 MG ORAL TABLET 1 tablet by mouth daily 20/06/06 FLUCONAZOLE 78223064155 No Longer Active Tesfaye Sherman MD Acti ve PREDNISONE 20 MG ORAL TABLET 1 tablet by mouth twice d aily for 3 days, then 1 tablet daily for 3 days PREDNISONE 80222217570 No L onger Active Tesfaye Sherman MD Active BACTRIM DS 800-160 MG ORAL TABLET 1 tab by mouth twice daily 201 06/09/02 TRIMETHOPRIM-SULFAMETHOXAZOLE 56006057149 No Longer Active A mirna ida Active DIFLUCAN 100 MG ORAL TABLET 1 tablet by mouth daily 20 20/05/01 FLUCONAZOLE 62719206497 No Longer Active Tesfaye Sherman MD Acti ve ZITHROMAX 250 MG ORAL TABLET 2 po today, then 1 po q days 2-5 20 20/04/28 AZITHROMYCIN 20637443103 No Longer Active Tesfaye Sherman MD Active MECLIZINE HCL 25 MG ORAL TABLET one tab po qday prn dizziness 20 17/09/06 MECLIZINE HCL 50539409392 No Longer Active Tesfaye Sherman MD Active PROAIR HFA 108 (90 BASE) MCG/ACT INHALATION AEROSOL SO LUTION 1 puff every 6 hours as needed ALBUTEROL SULFATE 28271352594 No Long er Active Tesfaye Sherman MD Active PREDNISONE 20 MG ORAL TABLET 1 tab twice daily for 3 d ay, then one daily for three days PREDNISONE 99025842835 No Longer Active Tesfaye Sherman MD Active MECLIZINE HCL 25 MG ORAL TABLET one 4 times a day as needed for dizziness MECLIZINE HCL 49116847434 Active Tesfaye Sherman MD Active AMOXICILLIN 500 MG ORAL CAPSULE 1 cap by mouth three times a day AMOXICILLIN 11740149264 No Longer Active Laurence Angelica Acti ve DIFLUCAN 100 MG ORAL TABLET 1 tablet by mouth daily 20 19/08/26 FLUCONAZOLE 72314134476 No Longer Active Tesfaye Sherman MD Acti ve BACTRIM DS 800-160 MG ORAL TABLET 1 tab by mouth twice daily 201 05/10/28 TRIMETHOPRIM-SULFAMETHOXAZOLE 82083776149 No Longer Active A mirna Raduyen Active FOSAMAX 70 MG ORAL TABLET 1 po qweek. Take 30min prio r to first food/drink. Avoid lying down x 1 hour. ALENDRONATE SODIUM 01368195 144 No Longer Active Laurence Dominguez Active CYMBALTA 60 MG ORAL CAPSULE DELAYED RELEASE PARTICLES Take 1 tablet by mouth daily DULOXETINE HCL 46134483198 No Longer Active Edith Burch MD Active CYMBALTA 30 MG ORAL CAPSULE DELAYED RELEASE PARTICLES 1 cap by mouth daily with 60mg DULOXETINE HCL 87278910843 No Longer Active Jordan Burch MD Active FISH OIL 1000 MG ORAL CAPSULE DELAYED RELEASE 1 pill b y mouth daily for cholesterol OMEGA-3 FATTY ACIDS 95797560904 Active Cee Jaffe LPN Active DIFLUCAN 100 MG ORAL TABLET 1 tablet by mouth daily 19/03/05 FLUCONAZOLE 81227213241 No Longer Active Tesfaye Sherman MD Acti ve BACTRIM DS 800-160 MG ORAL TABLET 1 tab by mouth twice daily 201 05/06/28 TRIMETHOPRIM-SULFAMETHOXAZOLE 93746539577 No Longer Active Umer Sherman MD Active BACTRIM DS 800-160 MG ORAL TABLET 1 tab by mouth twice daily 201 05/04/15 TRIMETHOPRIM-SULFAMETHOXAZOLE 53620748115 No Longer Active Umer Sherman MD Active DIFLUCAN 150 MG ORAL TABLET 1 tablet by mouth daily 20 18/09/20 FLUCONAZOLE 95479371635 No Longer Active Tesfaye Sherman MD Acti ve BACTRIM DS 800-160 MG ORAL TABLET 1 tab by mouth twice daily 201 04/13/17 TRIMETHOPRIM-SULFAMETHOXAZOLE 54885109956 No Longer Active Umer Sherman MD Active ROPINIROLE HCL 0.25 MG ORAL TABLET 1 TAB PO Q HS ROPINIROLE HCL 82471541040 Active Tesfaye Sherman MD Active CEFTIN 250 MG ORAL TABLET 1 tablet twice daily x 7 days CEFUROXIME AXETIL 86397309249 No Longer Active Tesfaye Sherman MD Active DIFLUCAN 100 MG ORAL TABLET 1 tablet by mouth every other da y for 2 doses FLUCONAZOLE 88978572221 No Longer Active Tesfaye barron MD Active DIFLUCAN 100 MG ORAL TABLET 1 tablet by mouth daily X 3 DAYS 201 04/09/01 FLUCONAZOLE 32170698544 No Longer Active Rj Lyons tive MIRTAZAPINE 15 MG ORAL TABLET 1/2 tab by mouth at bedtime. 03/13 MIRTAZAPINE 69458538764 No Longer Active Tesfaye Sherman MD Active BACTRIM DS 800-160 MG ORAL TABLET 1 tab by mouth twice daily 201 04/09/01 TRIMETHOPRIM-SULFAMETHOXAZOLE 22344651380 No Longer Active D patricia Sherman MD Active PRAMIPEXOLE DIHYDROCHLORIDE 0.125 MG ORAL TABLET take 1 tablet po qhs for restless leg syndrome. PRAMIPEXOLE DIHYDROCHLORI DE 50284335638 No Longer Active Tesfaye Sherman MD Active MAGNESIUM 400 MG ORAL TABLET 1 tab po daily MAGNE SIUM 51082050174 Active Chelsea Cardenas APRN Active CETIRIZINE HCL 5 MG ORAL TABLET Take 1 tablet by mouth daily CETIRIZINE HCL 66240517289 No Longer Active Chelsea Cardenas APRN Activ e TRIMETHOPRIM 100 MG ORAL TABLET 1/2 qd TRIM ETHOPRIM 63907631792 No Longer Active Chelsea Cardenas APRN Active BACTRIM DS 800-160 MG ORAL TABLET 1 tab by mouth twice daily 201 04/04/11 TRIMETHOPRIM-SULFAMETHOXAZOLE 95842625760 No Longer Active Umer Sherman MD Active BACTRIM DS 800-160 MG ORAL TABLET 1 tab by mouth twice daily X 10 DAYS TRIMETHOPRIM-SULFAMETHOXAZOLE 51737358356 No Longer Active Tesfaye Sherman MD Active AMOXICILLIN 500 MG ORAL CAPSULE 1 cap by mouth three times a day AMOXICILLIN 23892866167 No Longer Active MARCUS Maravilla ctive B-12 1000 MCG ORAL LOZENGE 1 tab po daily CYANO COBALAMIN 62482818511 Active Tesfaye Sherman MD Active VITAMIN D3 2000 UNIT ORAL TABLET 1 daily, for vitamin D deficien cy CHOLECALCIFEROL 76803589538 No Longer Active Tesfaye Sherman MD Active TIZANIDINE HCL 2 MG ORAL TABLET take 1-2 tablet by mo ut every day at bedtime at 9pm PRN TIZANIDINE HCL 83060894617 Active Tesfaye hewitt MD Active ZITHROMAX 250 MG ORAL TABLET 2 po today, then 1 po q days 2-5 20 15/02/10 AZITHROMYCIN 40169870287 No Longer Active Tesfaye Sherman MD Active BACTRIM DS 800-160 MG ORAL TABLET 1 tab by mouth twice daily 201 03/03/23 TRIMETHOPRIM-SULFAMETHOXAZOLE 59964877072 No Longer Active Umer Sherman MD Active [facility] NIACIN FLUSH FREE 400-100 MG ORAL CAPSULE 1 daily NIACIN-INOSITOL 95691310761 Active Kayla Cooper MD Activ e DIFLUCAN 150 MG ORAL TABLET 1 qd FLUCONAZOL E 26010794669 No Longer Active Kayla Cooper MD Active FLUTICASONE PROPIONATE 50 MCG/ACT NASAL SUSPENSION 1 spray each nostril twice daily FLUTICASONE PROPIONATE 55746831630 Active Umer Sherman MD Active LOVASTATIN 20 MG ORAL TABLET Take 1 tablet by mouth daily LOVASTATIN 23274130214 No Longer Active Tesfaye Sherman MD Acti ve MELOXICAM 7.5 MG ORAL TABLET 1 tablet by mouth daily 2 MELOXICAM 44863546533 No Longer Active Tesfaye Sherman MD Acti ve GABAPENTIN 300 MG ORAL CAPSULE Take two tablets by mouth every e vening GABAPENTIN 16366122022 No Longer Active Edith Burch MD A ctive BACLOFEN 10 MG ORAL TABLET Take one tablet by mouth three times a d ay BACLOFEN 65870183490 Active Kayla Cooper MD Active GABAPENTIN 300 MG ORAL CAPSULE Take two tablets by mouth every e vening GABAPENTIN 300 MG ORAL CAPSULE 643071 GABAPENTIN I nactive MELOXICAM 7.5 MG ORAL TABLET 1 tablet by mouth daily 2 MELOXICAM 7.5 MG ORAL TABLET 500434 MELOXICAM Inactive LOVASTATIN 20 MG ORAL TABLET Take 1 tablet by mouth daily LOVASTATIN 20 MG ORAL TABLET 877328 LOVASTATIN Inactive DIFLUCAN 150 MG ORAL TABLET 1 qd DIFLUCAN 150 MG ORAL TABLET 008011 FLUCONAZOLE Inactive VITAMIN D3 2000 UNIT ORAL TABLET 1 daily, for vitamin D deficien cy VITAMIN D3 2000 UNIT ORAL TABLET CHOLECALCIFEROL Inactive AMOXICILLIN 500 MG ORAL CAPSULE 1 cap by mouth three times a day AMOXICILLIN 500 MG ORAL CAPSULE 588845 AMOXICILLIN Inactive BACTRIM DS 800-160 MG ORAL TABLET 1 tab by mouth twice daily X 10 DAYS BACTRIM DS 800-160 MG ORAL TABLET 144989 TRIMETHOPRIM-SULFAMETHOXAZOLE Inactive TRIMETHOPRIM 100 MG ORAL TABLET 1/2 qd 7 TRIMETHOPRIM 100 MG ORAL TABLET 095210 TRIMETHOPRIM Inactive CETIRIZINE HCL 5 MG ORAL TABLET Take 1 tablet by mouth daily CETIRIZINE HCL 5 MG ORAL TABLET 7417350 CETIRIZINE HCL Inactive PRAMIPEXOLE DIHYDROCHLORIDE 0.125 MG ORAL TABLET take 1 tablet po qhs for restless leg syndrome. PRAMIPEXOLE DIHYD ROCHLORIDE 0.125 MG ORAL TABLET 098582 PRAMIPEXOLE DIHYDROCHLORIDE Inactive MIRTAZAPINE 15 MG ORAL TABLET 1/2 tab by mouth at bedtime. 03/13 MIRTAZAPINE 15 MG ORAL TABLET 704540 MIRTAZAPINE In active DIFLUCAN 100 MG ORAL TABLET 1 tablet by mouth daily X 3 DAYS 201 04/09/01 DIFLUCAN 100 MG ORAL TABLET 707355 FLUCONAZOLE Inac tive DIFLUCAN 100 MG ORAL TABLET 1 tablet by mouth every other da y for 2 doses DIFLUCAN 100 MG ORAL TABLET 669351 FLUCONAZOLE Inactive CEFTIN 250 MG ORAL TABLET 1 tablet twice daily x 7 days CEFTIN 250 MG ORAL TABLET CEFUROXIME AXETIL Inactive CYMBALTA 30 MG ORAL CAPSULE DELAYED RELEASE PARTICLES 1 cap by mouth daily with 60mg CYMBALTA 30 MG ORAL CAPSULE DELAYED RELEASE PARTICLES 575414 DULOXETINE HCL Inactive CYMBALTA 60 MG ORAL CAPSULE DELAYED RELEASE PARTICLES Take 1 tablet by mouth daily CYMBALTA 60 MG ORAL CAPSULE DELAYED RELEA SE PARTICLES 477829 DULOXETINE HCL Inactive FOSAMAX 70 MG ORAL TABLET 1 po qweek. Take 30min prio r to first food/drink. Avoid lying down x 1 hour. FOSAMAX 70 MG ORAL TA BLET 988161 ALENDRONATE SODIUM Inactive DIFLUCAN 100 MG ORAL TABLET 1 tablet by mouth daily 19/08/26 DIFLUCAN 100 MG ORAL TABLET 596676 FLUCONAZOLE Inactive PREDNISONE 20 MG ORAL TABLET 1 tab twice daily for 3 d ay, then one daily for three days PREDNISONE 20 MG ORAL TABLET 723006 PREDNIS ONE Inactive PROAIR HFA 108 (90 BASE) MCG/ACT INHALATION AEROSOL SO LUTION 1 puff every 6 hours as needed PROAIR HFA 108 (90 B ASE) MCG/ACT INHALATION AEROSOL SOLUTION ALBUTEROL SULFATE Inactive MECLIZINE HCL 25 MG ORAL TABLET one tab po qday prn dizziness 20 17/09/06 MECLIZINE HCL 25 MG ORAL TABLET 453919 MECLIZINE HCL Inactive PREDNISONE 20 MG ORAL TABLET 1 tablet by mouth twice d aily for 3 days, then 1 tablet daily for 3 days PREDNISONE 20 MG ORAL TA BLET 724079 PREDNISONE Inactive DIFLUCAN 100 MG ORAL TABLET 1 tablet by mouth daily 20 20/06/06 DIFLUCAN 100 MG ORAL TABLET 433139 FLUCONAZOLE Inactive REPHRESH PRO-B ORAL CAPSULE 1 tablet daily REPHRESH PRO-B ORAL CAPSULE LACTOBACILLUS Inactive RED YEAST RICE 600 MG ORAL CAPSULE 1 pill by mouth daily RED YEAST RICE 600 MG ORAL CAPSULE 812890 RED YEAST RICE EXTRACT In active SUDAFED [...] daily 19/02/09 DIFLUCAN 100 MG ORAL TABLET 359425 FLUCONAZOLE Inactive DIFLUCAN 100 MG ORAL TABLET 1 tablet by mouth daily 19/02/09 DIFLUCAN 100 MG ORAL TABLET 345479 FLUCONAZOLE Inactive VENLAFAXINE HCL 75 MG ORAL TABLET 1 am 1/2 at noon 201 07/07/09 VENLAFAXINE HCL 75 MG ORAL TABLET 175480 VENLAFAXINE HCL Inacti ve GABAPENTIN 300 MG ORAL CAPSULE 1 po daily GABAPENTIN 300 MG ORAL CAPSULE 557158 GABAPENTIN Inactive SUDAFED 12 HOUR 120 MG ORAL TABLET EXTENDED RELEASE 12 HOUR 1 pill twice daily if needed for congestion SUDAFED 12 HOUR 120 MG ORAL TABLET EXTENDED RELEASE 12 HOUR PSEUDOEPHEDRINE HCL Inactive AMITRIPTYLINE HCL 10 MG ORAL TABLET 1 tablet nightly by mout h for neuropathy AMITRIPTYLINE HCL 10 MG ORAL TABLET 238892 AMITRIPTYLINE HCL Inactive BACTRIM DS 800-160 MG ORAL TABLET 1 tab by mouth twice daily 201 03/03/23 BACTRIM DS 800-160 MG ORAL TABLET 294734 TRIMETHOPRIM-SULFAMETHOXAZOLE Inactive ZITHROMAX 250 MG ORAL TABLET 2 po today, then 1 po q days 2-5 20 15/02/10 ZITHROMAX 250 MG ORAL TABLET 295889 AZITHROMYCIN Mayela ctive BACTRIM DS 800-160 MG [...] a day AMOXICILLIN 500 MG ORAL CAPSULE 195094 AMOXICILLIN Inactive ZITHROMAX 250 MG ORAL TABLET 2 po today, then 1 po q days 2-5 20 20/04/28 ZITHROMAX 250 MG ORAL TABLET 133911 AZITHROMYCIN [place] ctive DIFLUCAN 100 MG ORAL TABLET 1 tablet by mouth daily 20 20/05/01 DIFLUCAN 100 MG ORAL TABLET 19760711 FLUCONAZOLE Inactive BACTRIM DS 800-160 MG ORAL TABLET 1 tab by mouth twice daily 201 06/09/02 BACTRIM DS 800-160 MG ORAL TABLET 19830105 TRIMETHOPRIM-SULFAMETHOXAZOLE Inactive HYDROCHLOROTHIAZIDE 12.5 MG ORAL CAPSULE 1 pill by mough daily 2 HYDROCHLOROTHIAZIDE 12.5 MG ORAL CAPSULE [facility] LOR[facility] Inactive BACTRIM DS 800-160 [...] -- NO DECISION MADE DURABLE POWER OF PASSENGER SERVICE REPRESENTATIVE FOR HEALTHCARE DISCUSED WITH PATIENT -- FULL [...] Negative mg/dL Negative sodium, serum 139 mmol/L 636-062 9047/11/07 carbon dioxide, venous blood 28.4 mmol/L 21.0-32 [...] ative Encounters Code Encounter Date Provider Facility CPT-07107 Level 3 Est. Patient 18:06:36 CDT Tesfaye pearson MD [facility] CPT-70905 [id number] Vst-Est Level IV 17:09:34 C BRIDGET Sherman MD [facility] CPT-13764 Level 3 Est. Patient 17:27:08 CDT León Portillo mayajim [facility] CPT-15465 [id number] Vst-Est Level IV 14:00:[address] Tesfaye Sherman MD [facility] CPT-66472 [id number] Vst-Est Level IV 19:27:[address] Tesfaye Sherman MD [facility] CPT-55170 [id number] Vst-Est Level IV 10:41:41 C BRIDGET Sherman MD [facility] CPT-31698 [id number]-Vgo Vst-Est Level III 09:40:56 CDT Tesfaye Sherman MD [facility] CPT-81369 Level 4 Est. Patient 22:18:12 CDT Tesfaye pearson MD [facility] CPT-00482 Level 4 Est. Patient 14:44:33 SENIOR CREDIT OFFICER Tesfaye pearson MD [facility] CPT-40442 Level 4 Est. Patient 13:55:29 SENIOR CREDIT OFFICER Tesfaye pearson MD [facility] CPT-73680 Level 4 Est. Patient 17:07:34 SENIOR CREDIT OFFICER Tesfaye pearson MD [facility] CPT-97795 Level 4 Est. Patient 13:56:54 CDT Tesfaye pearson MD [facility] CPT-78893 Level 4 Est. Patient 13:24:25 CDT Chelsea sanz [facility] CPT-22228 Level 4 Est. Patient 09:14:56 CDT Tesfaye pearson MD [facility] CPT-55078 Level 4 Est. Patient 18:40:25 SENIOR CREDIT OFFICER Tesfaye pearson MD [facility] CPT-08727 Level 4 Est. Patient 18:13:07 SENIOR CREDIT OFFICER Tesfaye pearson MD [facility] CPT-26718 Level 3 Est. Patient 10:46:32 CDT Rj cotto DO [facility]-60307 Level 4 Est. Patient 20:19:25 CDT Tesfaye pearson MD [facility] CPT-80921 Level 3 Est. Patient 09:07:31 CDT Tesfaye pearson MD [facility]-50884 Level 4 Est. Patient 13:12:56 CDT Tesfaye pearson MD [facility]-51623 Level 4 Est. Patient 21:24:55 SENIOR CREDIT OFFICER Tesfaye pearson MD [facility]-86349 Level 3 Est. Patient 13:45:04 SENIOR CREDIT OFFICER Tesfaye pearson MD [facility] CPT-72555 Level 4 Est. Patient 13:50:45 CDT Tesfaye pearson MD [facility] CPT-75302 Level 3 Est. Patient 10:16:10 CDT Tesfaye pearson MD [facility] CPT-40407 Level 3 Est. Patient 16:36:07 SENIOR CREDIT OFFICER Kayla jameson MD [facility]-22665 Level 4 Est. Patient 16:00:14 SENIOR CREDIT OFFICER Tesfaye pearson MD [facility]-93927 Level 4 Est. Patient 11:02:24 SENIOR CREDIT OFFICER Tesfaye pearson MD [facility] CPT-11612 Level 3 Est. Patient 20:21:43 SENIOR CREDIT OFFICER Kayla jameson MD [facility]-54140 Level 3 Est. Patient 13:27:28 SENIOR CREDIT OFFICER Kayla jameson MD [facility]-54703 Level 4 Est. Patient 15:57:17 SENIOR CREDIT OFFICER Tesfaye pearson MD [facility] CPT-48180 Level 3 New Patient 13:25:47 CDT Tesfaye kidd MD [facility] CPT-06111 Level 3 New Patient 17:22:21 CDT Kayla angel MD [facility] Procedures Code Procedure Name Date Entry Date Standard Desc ription CPT-G0439 Subsequent Annual Wellness Exam 18:06:36 CDT CPT-G0439 Subsequent Annual Wellness Exam 22:18:11 CDT CPT-47747 Bone Density - XRAY USE ONLY 11:43:58 CDT 2 CPT-75213 Bone Density - XRAY USE ONLY 10:05:16 CDT CPT-41472 Prv Med New Pt 40-64 yrs 18:19:25 CDT 2016 CPT-98092 Foot, right, comp min 3V - XRAY USE ONLY 10:38:34 CDT CPT-G0439 Subsequent Annual Wellness Exam 13:55:04 CDT CPT-G0438 Initial Annual Wellness Exam 11:23:17 CD T CPT-J2930 Solu Medrol 125 mg (Methyl Prednisolone Sodium Succinate) 17:29:12 SENIOR CREDIT OFFICER CPT-34243 Abx/Therapy Injection 17:29:11 SENIOR CREDIT OFFICER CPT-J2930 Solu Medrol 125 mg (Methyl Prednisolone Sodium Succinate) 12:34:38 SENIOR CREDIT OFFICER CPT-J3420 Vitamin B12 1000mcg (Cyanocobalamin) 09:12:55 CDT CPT-J3420 Vitamin B12 1000mcg (Cyanocobalamin) 16:28:06 SENIOR CREDIT OFFICER CPT-07578 Venipuncture Draw Fee 08:39:53 CDT CPT-J3420 Vitamin B12 1000mcg (Cyanocobalamin) 08:46:22 CDT CPT-32220 Abx/Therapy Injection 08:46:22 CDT CPT-J3420 Vitamin B12 1000mcg (Cyanocobalamin) 08:41:26 CDT CPT-53824 Abx/Therapy Injection 08:41:26 CDT CPT-J3420 Vitamin B12 1000mcg (Cyanocobalamin) 08:57:15 CDT CPT-29430 Abx/Therapy Injection 08:57:15 CDT CPT-J3420 Vitamin B12 1000mcg (Cyanocobalamin) 10:59:03 CDT CPT-07592 Abx/Therapy Injection 10:59:03 CDT CPT-J3420 Vitamin B12 1000mcg (Cyanocobalamin) 15:05:39 CDT CPT-62332 Abx/Therapy Injection 15:05:39 CDT CPT-J3420 Vitamin B12 1000mcg (Cyanocobalamin) 13:50:45 CDT CPT-J3420 Vitamin B12 1000mcg (Cyanocobalamin) 08:48:55 CDT CPT-56740 Abx/Therapy Injection 08:48:55 CDT CPT-J3420 Vitamin B12 1000mcg (Cyanocobalamin) 09:14:54 CDT CPT-47919 Abx/Therapy Injection 09:14:54 CDT CPT-J3420 Vitamin B12 1000mcg (Cyanocobalamin) 09:06:06 CDT CPT-27291 Abx/Therapy Injection 09:06:06 CDT CPT-J3420 Vitamin B12 1000mcg (Cyanocobalamin) 09:49:14 CDT CPT-46127 Abx/Therapy Injection 09:49:14 CDT CPT-J3420 Vitamin B12 1000mcg (Cyanocobalamin) 09:10:30 SENIOR CREDIT OFFICER CPT-15078 Abx/Therapy Injection 09:10:30 SENIOR CREDIT OFFICER CPT-J3420 Vitamin B12 1000mcg (Cyanocobalamin) 09:11:07 SENIOR CREDIT OFFICER CPT-71437 Abx/Therapy Injection 09:11:07 SENIOR CREDIT OFFICER CPT-J3420 Vitamin B12 1000mcg (Cyanocobalamin) 09:57:03 SENIOR CREDIT OFFICER CPT-27359 Abx/Therapy Injection 09:57:03 SENIOR CREDIT OFFICER CPT-J3420 Vitamin B12 1000mcg (Cyanocobalamin) 09:23:21 SENIOR CREDIT OFFICER CPT-64320 Abx/Therapy Injection 09:23:21 SENIOR CREDIT OFFICER CPT-49402 Urine Dip (Floor Use Only) 20:21:44 SENIOR CREDIT OFFICER 201 02/12/11 CPT-66175 UA Dip Auto (Floor Use Only) 10:04:39 SENIOR CREDIT OFFICER 2 CPT-16622 Urine Dip (Floor Use Only) 13:27:28 SENIOR CREDIT OFFICER 201 02/12/01 CPT-81656 Bladder Scan 13:27:28 SENIOR CREDIT OFFICER CPT-18240 Abd single AP View 14:30:51 SENIOR CREDIT OFFICER CPT-OV Office Visit 10:15:43 CDT CPT-68196 Urine Dip (Floor Use Only) 17:22:21 CDT 201 02/09/02 CPT-11993 Bladder Scan 17:22:21 CDT
[2020-05-05 11:28] LABS: BILIRUBIN,DIRECT 0.2 MG/DL (0.0-0.3); BILIRUBIN,INDIRECT 0.2 MG/DL; BUN/CREATININE RATIO 15
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
[2020-05-05 11:29] LABS: ALANINE AMINOTRANSFERASE 25 U/L (0-55)
--- OUTSIDE RECORDS SUMMARY | 2020-05-05 11:29 | XMS REPORT | Clinical Summary ---
Author Author Talon, Jeri Wood Organization [employer] Address Unknown Phone Unavailable Allergies, Adverse Reactions, [...] Routine general medical examination at [facility] acility Sinusitis 461.9 Resolved Tesfaye [...] episode, unspecified degree URI 465.9 Active Tesfaye Sehrman MD Acute upper respiratory infections of unspecified site Osteopenia 733.90 Active Tesfaye Sherman MD Disorder of bone and cartilage, unspecified Preventive health care V70.0 Resolved Tesfaye Sherman MD Routine general medical examination at [facility] Body Mass Index 21.0-21.9 Adult Refinement [...] Tesfaye Sherman MD Dysuria 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.6 Active Tesfaye Sherman MD Long-term (current) drug use Yeast infection 112.9 Inactive Tesfaye Sherman MD Candidiasis of unspecified site Upper respiratory infection 465.9 Inactive Tesfaye Sherman MD Acute upper respiratory infections of un specified site Lower extremity edema, bilateral 782.3 Active 201 07/07/09 León Kodi PLASTIC PRESS OPERATOR Edema Peripheral neuropathy 356.9 Active Tesfaye [...] po q hs for sleep AMITRIPTYLINE HCL 87697593991 Active MARCUS Maravilla Active AMITRIPTYLINE HCL 10 MG ORAL TABLET 1 tablet nightly by mout h for neuropathy AMITRIPTYLINE HCL 43032261313 No Longer Active MARCUS Stapleton Active PREDNISONE 20 MG ORAL TABLET 1 tab twice daily for 3 d ay, then one daily for three days PREDNISONE 61400885827 Active Tesfaye Sherman MD Active DIFLUCAN 100 MG ORAL TABLET 1 tablet by mouth daily 20 21/03/11 FLUCONAZOLE 25878328277 No Longer Active Tesfaye Sherman MD Acti ve BACTRIM DS 800-160 MG ORAL TABLET 1 tab by mouth twice daily 201 07/08/06 TRIMETHOPRIM-SULFAMETHOXAZOLE 63036934161 No Longer Active Umer Sherman MD Active CLARITIN 10 MG ORAL TABLET Take one by mouth daily LORATADINE 98857841065 Active Tesfaye Sherman MD Active SUDAFED 12 HOUR 120 MG ORAL TABLET EXTENDED RELEASE 12 HOUR 1 pill twice daily if needed for congestion PSEUDOEPHEDRINE HCL 628086226 13 No Longer Active Tesfaye Sherman MD Active FENOFIBRATE 145 MG ORAL TABLET 1 by mouth daily FENOFIBRATE 99737731073 Active Laurence Dominguez Active GABAPENTIN 300 MG ORAL CAPSULE 1 po daily GABAP ENTIN 81820210328 No Longer Active Tesfaye Sherman MD Active HYDROCHLOROTHIAZIDE 12.5 MG ORAL CAPSULE 1 pill by mough daily 2 HYDROCHLOROTHIAZIDE 06737225106 No Longer Active León Mariee APRN Active VENLAFAXINE HCL 75 MG ORAL TABLET 1 am 1/2 at noon 201 07/07/09 VENLAFAXINE HCL 00900093315 No Longer Active León Mariee APRN Act trent DIFLUCAN 100 MG ORAL TABLET 1 tablet by mouth daily 20 19/02/09 FLUCONAZOLE 75983979979 No Longer Active León Mariee PLASTIC PRESS OPERATOR Active DIFLUCAN 100 MG ORAL TABLET 1 tablet by mouth daily 19/02/09 FLUCONAZOLE 55696033919 No Longer Active León Kodi PLASTIC PRESS OPERATOR Active OXYCODONE-ACETAMINOPHEN 5-325 MG ORAL TABLET Take one tablet by mouth every 6 hours 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 Use sparingly OXYCODONE-ACETAMINOPHEN 29436001402 Active Tesfaye villar MD Active CLONAZEPAM 0.5 MG ORAL TABLET Take 1/2 qam, and 1/2 qpm CLONAZEPAM 49513755041 Active Tesfaye Sherman MD Active PRELIEF 340 (65-50) MG (CA-P) ORAL TABLET CALCIUM GLYCEROPHOSPHATE 01827259957 No Longer Active Tesfaye Sherman MD Active SUDAFED 24 HOUR 240 MG ORAL TABLET EXTENDED RELEASE 24 HOUR 1 tab po daily PSEUDOEPHEDRINE HCL 85089269743 No Longer Active Raul Sherman MD Active RED YEAST RICE 600 MG ORAL CAPSULE 1 pill by mouth daily RED YEAST RICE EXTRACT 22249061386 No Longer Active Tesfaye Sherman MD Active REPHRESH PRO-B ORAL CAPSULE 1 tablet daily LACT OBACILLUS 03666599791 No Longer Active Tesfaye Sherman MD Active ABILIFY 2 MG ORAL TABLET 1 by mouth daily. MARIA ELENA PIPRAZOLE 97136854221 Active Tesfaye Sherman MD Active CYMBALTA 60 MG ORAL CAPSULE DELAYED RELEASE PARTICLES 1 cap by mouth daily for pain DULOXETINE HCL 06369850587 Active Tesfaye Owusu Active DIFLUCAN 100 MG ORAL TABLET 1 tablet by mouth daily 20/06/06 FLUCONAZOLE 11857196039 No Longer Active Tesfaye Sherman MD Acti ve PREDNISONE 20 MG ORAL TABLET 1 tablet by mouth twice d aily for 3 days, then 1 tablet daily for 3 days PREDNISONE 95598480385 No L onger Active Tesfaye Sherman MD Active BACTRIM DS 800-160 MG ORAL TABLET 1 tab by mouth twice daily 201 06/09/02 TRIMETHOPRIM-SULFAMETHOXAZOLE 00778573414 No Longer Active A mirna Dominguez Active DIFLUCAN 100 MG ORAL TABLET 1 tablet by mouth daily 20 20/05/01 FLUCONAZOLE 07594335892 No Longer Active Tesfaye Sherman MD Acti ve ZITHROMAX 250 MG ORAL TABLET 2 po today, then 1 po q days 2-5 20 20/04/28 AZITHROMYCIN 69786131199 No Longer Active Tesfaye Sherman MD Active MECLIZINE HCL 25 MG ORAL TABLET one tab po qday prn dizziness 20 17/09/06 MECLIZINE HCL 05240531759 No Longer Active Tesfaye Sherman MD Active PROAIR HFA 108 (90 BASE) MCG/ACT INHALATION AEROSOL SO LUTION 1 puff every 6 hours as needed ALBUTEROL SULFATE 70161615804 No Long er Active Tesfaye Sherman MD Active PREDNISONE 20 MG ORAL TABLET 1 tab twice daily for 3 d ay, then one daily for three days PREDNISONE 98040269851 No Longer Active Tesfaye Sherman MD Active MECLIZINE HCL 25 MG ORAL TABLET one 4 times a day as needed for dizziness MECLIZINE HCL 76000072531 Active Tesfaye Sherman MD Active AMOXICILLIN 500 MG ORAL CAPSULE 1 cap by mouth three times a day AMOXICILLIN 47006997710 No Longer Active Laurence Lopezduyen Acti ve DIFLUCAN 100 MG ORAL TABLET 1 tablet by mouth daily 20 19/08/26 FLUCONAZOLE 31401811357 No Longer Active Tesfaye Sherman MD Acti ve BACTRIM DS 800-160 MG ORAL TABLET 1 tab by mouth twice daily 201 05/10/28 TRIMETHOPRIM-SULFAMETHOXAZOLE 30980244026 No Longer Active A mirna Angelica Active FOSAMAX 70 MG ORAL TABLET 1 po qweek. Take 30min prio r to first food/drink. Avoid lying down x 1 hour. ALENDRONATE SODIUM 62892272 144 No Longer Active Laurence Dominguez Active CYMBALTA 60 MG ORAL CAPSULE DELAYED RELEASE PARTICLES Take 1 tablet by mouth daily DULOXETINE HCL 87287727376 No Longer Active Edith Burch MD Active CYMBALTA 30 MG ORAL CAPSULE DELAYED RELEASE PARTICLES 1 cap by mouth daily with 60mg DULOXETINE HCL 72994107183 No Longer Active Jordan Burch MD Active FISH OIL 1000 MG ORAL CAPSULE DELAYED RELEASE 1 pill b y mouth daily for cholesterol OMEGA-3 FATTY ACIDS 22861065738 Active Cee Jaffe LPN Active DIFLUCAN 100 MG ORAL TABLET 1 tablet by mouth daily 19/03/05 FLUCONAZOLE 56666074896 No Longer Active Tesfaye Sherman MD Acti ve BACTRIM DS 800-160 MG ORAL TABLET 1 tab by mouth twice daily 201 05/06/28 TRIMETHOPRIM-SULFAMETHOXAZOLE 75138684786 No Longer Active Umer Sherman MD Active BACTRIM DS 800-160 MG ORAL TABLET 1 tab by mouth twice daily 201 05/04/15 TRIMETHOPRIM-SULFAMETHOXAZOLE 37252792866 No Longer Active Umer Sherman MD Active DIFLUCAN 150 MG ORAL TABLET 1 tablet by mouth daily 20 18/09/20 FLUCONAZOLE 75146958546 No Longer Active Tesfaye Sherman MD Acti ve BACTRIM DS 800-160 MG ORAL TABLET 1 tab by mouth twice daily 201 04/13/17 TRIMETHOPRIM-SULFAMETHOXAZOLE 36203260034 No Longer Active Umer Sherman MD Active ROPINIROLE HCL 0.25 MG ORAL TABLET 1 TAB PO Q HS ROPINIROLE HCL 08838584436 Active Tesfaye Sherman MD Active CEFTIN 250 MG ORAL TABLET 1 tablet twice daily x 7 days CEFUROXIME AXETIL 29930977654 No Longer Active Tesfaye Sherman MD Active DIFLUCAN 100 MG ORAL TABLET 1 tablet by mouth every other da y for 2 doses FLUCONAZOLE 29622222135 No Longer Active Tesfaye barron MD Active DIFLUCAN 100 MG ORAL TABLET 1 tablet by mouth daily X 3 DAYS 201 04/09/01 FLUCONAZOLE 13460587640 No Longer Active Rj Lyons tive MIRTAZAPINE 15 MG ORAL TABLET 1/2 tab by mouth at bedtime. 03/13 MIRTAZAPINE 51926410653 No Longer Active Tesfaye Sherman MD Active BACTRIM DS 800-160 MG ORAL TABLET 1 tab by mouth twice daily 201 04/09/01 TRIMETHOPRIM-SULFAMETHOXAZOLE 34045829764 No Longer Active Umer Sherman MD Active PRAMIPEXOLE DIHYDROCHLORIDE 0.125 MG ORAL TABLET take 1 tablet po qhs for restless leg syndrome. PRAMIPEXOLE DIHYDROCHLORI DE 44773331010 No Longer Active Tesfaye Sherman MD Active MAGNESIUM 400 MG ORAL TABLET 1 tab po daily MAGNE SIUM 43009682406 Active Chelsea Cardenas APRN Active CETIRIZINE HCL 5 MG ORAL TABLET Take 1 tablet by mouth daily CETIRIZINE HCL 06444983342 No Longer Active Chelsea Cardenas APRN Activ e TRIMETHOPRIM 100 MG ORAL TABLET 1/2 qd TRIM ETHOPRIM 75915687880 No Longer Active Chelsea Cardenas APRN Active BACTRIM DS 800-160 MG ORAL TABLET 1 tab by mouth twice daily 201 04/04/11 TRIMETHOPRIM-SULFAMETHOXAZOLE 70785211311 No Longer Active Umer Sherman MD Active BACTRIM DS 800-160 MG ORAL TABLET 1 tab by mouth twice daily X 10 DAYS TRIMETHOPRIM-SULFAMETHOXAZOLE 45713133531 No Longer Active Tesfaye Sherman MD Active AMOXICILLIN 500 MG ORAL CAPSULE 1 cap by mouth three times a day AMOXICILLIN 87721930059 No Longer Active MARCUS Maravilla ctive B-12 1000 MCG ORAL LOZENGE 1 tab po daily CYANO COBALAMIN 41180170514 Active Tesfaye Sherman MD Active VITAMIN D3 2000 UNIT ORAL TABLET 1 daily, for vitamin D deficien cy CHOLECALCIFEROL 49589503817 No Longer Active Tesfaye Sherman MD Active TIZANIDINE HCL 2 MG ORAL TABLET take 1-2 tablet by mo uth every day at bedtime at 9pm PRN TIZANIDINE HCL 23950628483 Active Tesfaye hewitt MD Active ZITHROMAX 250 MG ORAL TABLET 2 po today, then 1 po q days 2-5 20 15/02/10 AZITHROMYCIN 49382996576 No Longer Active Tesfaye Sherman MD Active BACTRIM DS 800-160 MG ORAL TABLET 1 tab by mouth twice daily 201 03/03/23 TRIMETHOPRIM-SULFAMETHOXAZOLE 46047645631 No Longer Active Umer Sherman MD Active [facility] NIACIN FLUSH FREE 400-100 MG ORAL CAPSULE 1 daily NIACIN-INOSITOL 21143876133 Active Kayla Cooper MD Activ e DIFLUCAN 150 MG ORAL TABLET 1 qd FLUCONAZOL E 01136823862 No Longer Active Kayla Cooper MD Active FLUTICASONE PROPIONATE 50 MCG/ACT NASAL SUSPENSION 1 spray each nostril twice daily FLUTICASONE PROPIONATE 42049060652 Active Umer Sherman MD Active LOVASTATIN 20 MG ORAL TABLET Take 1 tablet by mouth daily LOVASTATIN 60985163604 No Longer Active Tesfaye Sherman MD Acti ve MELOXICAM 7.5 MG ORAL TABLET 1 tablet by mouth daily 2 MELOXICAM 58623558673 No Longer Active Tesfaye Sherman MD Acti ve GABAPENTIN 300 MG ORAL CAPSULE Take two tablets by mouth every e vening GABAPENTIN 70040186251 No Longer Active Edith Burch MD A ctive BACLOFEN 10 MG ORAL TABLET Take one tablet by mouth three times a d ay BACLOFEN 78970257786 Active Kayla Cooper MD Active GABAPENTIN 300 MG ORAL CAPSULE Take two tablets by mouth every e vening GABAPENTIN 300 MG ORAL CAPSULE 420120 GABAPENTIN I nactive MELOXICAM 7.5 MG ORAL TABLET 1 tablet by mouth daily 2 MELOXICAM 7.5 MG ORAL TABLET 224735 MELOXICAM Inactive LOVASTATIN 20 MG ORAL TABLET Take 1 tablet by mouth daily LOVASTATIN 20 MG ORAL TABLET 189270 LOVASTATIN Inactive DIFLUCAN 150 MG ORAL TABLET 1 qd DIFLUCAN 150 MG ORAL TABLET 926622 FLUCONAZOLE Inactive VITAMIN D3 2000 UNIT ORAL TABLET 1 daily, for vitamin D deficien cy VITAMIN D3 2000 UNIT ORAL TABLET CHOLECALCIFEROL Inactive AMOXICILLIN 500 MG ORAL CAPSULE 1 cap by mouth three times a day AMOXICILLIN 500 MG ORAL CAPSULE 072304 AMOXICILLIN Inactive BACTRIM DS 800-160 MG ORAL TABLET 1 tab by mouth twice daily X 10 DAYS BACTRIM DS 800-160 MG ORAL TABLET 932841 TRIMETHOPRIM-SULFAMETHOXAZOLE Inactive TRIMETHOPRIM 100 MG ORAL TABLET 1/2 qd 7 TRIMETHOPRIM 100 MG ORAL TABLET 029564 TRIMETHOPRIM Inactive CETIRIZINE HCL 5 MG ORAL TABLET Take 1 tablet by mouth daily CETIRIZINE HCL 5 MG ORAL TABLET 9532690 CETIRIZINE HCL Inactive PRAMIPEXOLE DIHYDROCHLORIDE 0.125 MG ORAL TABLET take 1 tablet po qhs for restless leg syndrome. PRAMIPEXOLE DIHYD ROCHLORIDE 0.125 MG ORAL TABLET 434041 PRAMIPEXOLE DIHYDROCHLORIDE Inactive MIRTAZAPINE 15 MG ORAL TABLET 1/2 tab by mouth at bedtime. 03/13 MIRTAZAPINE 15 MG ORAL TABLET 646530 MIRTAZAPINE In active DIFLUCAN 100 MG ORAL TABLET 1 tablet by mouth daily X 3 DAYS 201 04/09/01 DIFLUCAN 100 MG ORAL TABLET 837757 FLUCONAZOLE Inac tive DIFLUCAN 100 MG ORAL TABLET 1 tablet by mouth every other da y for 2 doses DIFLUCAN 100 MG ORAL TABLET 900303 FLUCONAZOLE Inactive CEFTIN 250 MG ORAL TABLET 1 tablet twice daily x 7 days CEFTIN 250 MG ORAL TABLET CEFUROXIME AXETIL Inactive CYMBALTA 30 MG ORAL CAPSULE DELAYED RELEASE PARTICLES 1 cap by mouth daily with 60mg CYMBALTA 30 MG ORAL CAPSULE DELAYED RELEASE PARTICLES 500655 DULOXETINE HCL Inactive CYMBALTA 60 MG ORAL CAPSULE DELAYED RELEASE PARTICLES Take 1 tablet by mouth daily CYMBALTA 60 MG ORAL CAPSULE DELAYED RELEA SE PARTICLES 783971 DULOXETINE HCL Inactive FOSAMAX 70 MG ORAL TABLET 1 po qweek. Take 30min prio r to first food/drink. Avoid lying down x 1 hour. FOSAMAX 70 MG ORAL TA BLET 386590 ALENDRONATE SODIUM Inactive DIFLUCAN 100 MG ORAL TABLET 1 tablet by mouth daily 19/08/26 DIFLUCAN 100 MG ORAL TABLET 910406 FLUCONAZOLE Inactive PREDNISONE 20 MG ORAL TABLET 1 tab twice daily for 3 d ay, then one daily for three days PREDNISONE 20 MG ORAL TABLET 164138 PREDNIS ONE Inactive PROAIR HFA 108 (90 BASE) MCG/ACT INHALATION AEROSOL SO LUTION 1 puff every 6 hours as needed PROAIR HFA 108 (90 B ASE) MCG/ACT INHALATION AEROSOL SOLUTION ALBUTEROL SULFATE Inactive MECLIZINE HCL 25 MG ORAL TABLET one tab po qday prn dizziness 20 17/09/06 MECLIZINE HCL 25 MG ORAL TABLET 966814 MECLIZINE HCL Inactive PREDNISONE 20 MG ORAL TABLET 1 tablet by mouth twice d aily for 3 days, then 1 tablet daily for 3 days PREDNISONE 20 MG ORAL TA BLET 969656 PREDNISONE Inactive DIFLUCAN 100 MG ORAL TABLET 1 tablet by mouth daily 20 20/06/06 DIFLUCAN 100 MG ORAL TABLET 831074 FLUCONAZOLE Inactive REPHRESH PRO-B ORAL CAPSULE 1 tablet daily REPHRESH PRO-B ORAL CAPSULE LACTOBACILLUS Inactive RED YEAST RICE 600 MG ORAL CAPSULE 1 pill by mouth daily RED YEAST RICE 600 MG ORAL CAPSULE 428811 RED YEAST RICE EXTRACT In active SUDAFED [...] 20 19/02/09 DIFLUCAN 100 MG ORAL TABLET 813749 FLUCONAZOLE Inactive DIFLUCAN 100 MG ORAL TABLET 1 tablet by mouth daily 20 19/02/09 DIFLUCAN 100 MG ORAL TABLET 728453 FLUCONAZOLE Inactive VENLAFAXINE HCL 75 MG ORAL TABLET 1 am 1/2 at noon 201 07/07/09 VENLAFAXINE HCL 75 MG ORAL TABLET 117396 VENLAFAXINE HCL Inacti ve GABAPENTIN 300 MG ORAL CAPSULE 1 po daily GABAPENTIN 300 MG ORAL CAPSULE 712595 GABAPENTIN Inactive SUDAFED 12 HOUR 120 MG ORAL TABLET EXTENDED RELEASE 12 HOUR 1 pill twice daily if needed for congestion SUDAFED 12 HOUR 120 MG ORAL TABLET EXTENDED RELEASE 12 HOUR PSEUDOEPHEDRINE HCL Inactive AMITRIPTYLINE HCL 10 MG ORAL TABLET 1 tablet nightly by mout h for neuropathy AMITRIPTYLINE HCL 10 MG ORAL TABLET 178579 AMITRIPTYLINE HCL Inactive BACTRIM DS 800-160 MG ORAL TABLET 1 tab by mouth twice daily 201 03/03/23 BACTRIM DS 800-160 MG ORAL TABLET 583219 TRIMETHOPRIM-SULFAMETHOXAZOLE Inactive ZITHROMAX 250 MG ORAL TABLET 2 po today, then 1 po q days 2-5 20 15/02/10 ZITHROMAX 250 MG ORAL TABLET 654497 AZITHROMYCIN Mayela ctive BACTRIM DS 800-160 MG [...] a day AMOXICILLIN 500 MG ORAL CAPSULE 481896 AMOXICILLIN Inactive ZITHROMAX 250 MG ORAL TABLET 2 po today, then 1 po q days 2-5 20 20/04/28 ZITHROMAX 250 MG ORAL TABLET 356509 AZITHROMYCIN Mayela ctive DIFLUCAN 100 MG ORAL TABLET 1 tablet by mouth daily 20 20/05/01 DIFLUCAN 100 MG ORAL TABLET 19760711 FLUCONAZOLE Inactive BACTRIM DS 800-160 MG ORAL TABLET 1 tab by mouth twice daily 201 06/09/02 BACTRIM DS 800-160 MG ORAL TABLET 19830105 TRIMETHOPRIM-SULFAMETHOXAZOLE Inactive HYDROCHLOROTHIAZIDE 12.5 MG ORAL CAPSULE 1 pill by mough daily 2 HYDROCHLOROTHIAZIDE 12.5 MG ORAL CAPSULE [facility] Inactive BACTRIM DS 800-160 MG ORAL TABLET 1 tab by mouth twice daily 201 07/08/06 BACTRIM DS 800-160 MG ORAL TABLET 19830105 TRIMETHOPRIM-SULFAMETHOXAZOLE Inactive DIFLUCAN 100 MG ORAL TABLET 1 tablet by mouth daily 20 21/03/11 DIFLUCAN 100 MG ORAL TABLET 507946 FLUCONAZOLE Inactive Advance Directives Directive Description Start Date PERMISSION TO SHARE DISCUSSED WITH PATIENT -- NO DECISION MADE DURABLE POWER OF 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 M etabolic Panel, CBC - Chemistry protein, total urine random Negative mg/dL Negative RBC, urine, dipstick Trace-lysed Negative sodium, serum 139 mmol/L 032-677 5542/11/07 carbon dioxide, venous blood 28.4 mmol/L 21.0-32 [...] Comp. M etabolic Panel, CBC - Urinalysis urobilinogen, urine, semiquantitative (dipstick) 0.2 E .U./dL Normal leukocyte esterase, urine, by dipstick Negative Negative nitrite, urine, semiquantitative Negative Neg ative glucose, urine, semiquantitative Negative Neg ative ketones, urine, by test strip Negative Negati ve bilirubin, urine Negative Negative urine color Yellow Colorless;Lightyellow;St raw;Yellow appearance, urine Clear Clear specific gravity, urine 1.015 1.000-1.030 pH, urine, semiquantitative 5.5 5.0-8.5 Encounters Code Encounter Date Provider Facility CPT-19445 Level 3 Est. Patient 18:06:36 CDT Tesfaye pearson MD [facility] CPT-29689 [id number] Vst-Est Level IV 17:09:34 C BRIDGET Sherman MD [facility] CPT-22739 Level 3 Est. Patient 17:27:08 CDT León hernandez APRN [facility] CPT-71901 [id number] Vst-Est Level IV 14:00:[address] Tesfaye Sherman MD [facility] CPT-99346 [id number] Vst-Est Level IV 19:27:[address] Tesfaye Sherman MD [facility] CPT-78437 [id number] Vst-Est Level IV 10:41:41 C DT Tesfaye Sherman MD [facility]-55486 [id number] Vst-Est Level III 09:40:56 CDT Tesfaye Sherman MD [facility]-37381 Level 4 Est. Patient 22:18:12 CDT Tesfaye pearson MD [facility]-67660 Level 4 Est. Patient 14:44:33 SLUBBER TENDER Tesfaye pearson MD [facility] CPT-42480 Level 4 Est. Patient 13:55:29 SLUBBER TENDER Tesfaye pearson MD [facility]-10034 Level 4 Est. Patient 17:07:34 SLUBBER TENDER Tesfaye pearson MD [facility]-78250 Level 4 Est. Patient 13:56:54 CDT Tesfaye pearson MD [facility]-66213 Level 4 Est. Patient 13:24:25 CDT Chelsea sanz APRN [facility] CPT-50372 Level 4 Est. Patient 09:14:56 CDT Tesfaye pearson MD [facility]-18475 Level 4 Est. Patient 18:40:25 SLUBBER TENDER Tesfaye pearson MD [facility] CPT-06765 Level 4 Est. Patient 18:13:07 SLUBBER TENDER Tesfaye pearson MD [facility] CPT-78554 Level 3 Est. Patient 10:46:32 CDT Rj cotto DO [facility] CPT-63971 Level 4 Est. Patient 20:19:25 CDT Tesfaye pearson MD [facility]-74382 Level 3 Est. Patient 09:07:31 CDT Tesfaye pearson MD [facility]-02312 Level 4 Est. Patient 13:12:56 CDT Tesfaye pearson MD [facility]-59904 Level 4 Est. Patient 21:24:55 SLUBBER TENDER Tesfaye pearson MD [facility] CPT-21074 Level 3 Est. Patient 13:45:04 SLUBBER TENDER Tesfaye pearson MD [facility] CPT-90800 Level 4 Est. Patient 13:50:45 CDT Tesfaye pearson MD [facility] CPT-82073 Level 3 Est. Patient 10:16:10 CDT Tesfaye pearson MD [facility] CPT-29831 Level 3 Est. Patient 16:36:07 SLUBBER TENDER Kayla jameson MD [facility] CPT-79176 Level 4 Est. Patient 16:00:14 SLUBBER TENDER Tesfaye pearson MD [facility] CPT-49913 Level 4 Est. Patient 11:02:24 SLUBBER TENDER Tesfaye pearson MD [facility] CPT-10265 Level 3 Est. Patient 20:21:43 SLUBBER TENDER Kayla jameson MD [facility] CPT-87745 Level 3 Est. Patient 13:27:28 SLUBBER TENDER Kayla jameson MD [facility] CPT-76074 Level 4 Est. Patient 15:57:17 SLUBBER TENDER Tesfaye pearson MD [facility] CPT-05608 Level 3 New Patient 13:25:47 CDT Tesfaye kidd MD [facility] CPT-16578 Level 3 New Patient 17:22:21 CDT Kayla angel MD [facility] Procedures Code Procedure Name Date Entry Date Standard Desc ription CPT-G0439 Subsequent Annual Wellness Exam 18:06:36 CDT CPT-G0439 Subsequent Annual Wellness Exam 22:18:11 CDT CPT-73032 Bone Density - XRAY USE ONLY 11:43:58 CDT 2 CPT-17094 Bone Density - XRAY USE ONLY 10:05:16 CDT 2 CPT-93053 Prv Med New Pt 40-64 yrs 18:19:25 CDT 2016 CPT-94511 Foot, right, comp min 3V - XRAY USE ONLY 10:38:34 CDT CPT-G0439 Subsequent Annual Wellness Exam 13:55:04 CDT CPT-G0438 Initial Annual Wellness Exam 11:23:17 CD T CPT-J2930 Solu Medrol 125 mg (Methyl Prednisolone Sodium Succinate) 17:29:12 SLUBBER TENDER CPT-78387 Abx/Therapy Injection 17:29:11 SLUBBER TENDER CPT-J2930 Solu Medrol 125 mg (Methyl Prednisolone Sodium Succinate) 12:34:38 SLUBBER TENDER CPT-J3420 Vitamin B12 1000mcg (Cyanocobalamin) 09:12:55 CDT CPT-J3420 Vitamin B12 1000mcg (Cyanocobalamin) 16:28:06 SLUBBER TENDER CPT-60381 Venipuncture Draw Fee 08:39:53 CDT CPT-J3420 Vitamin B12 1000mcg (Cyanocobalamin) 08:46:22 CDT CPT-85786 Abx/Therapy Injection 08:46:22 CDT CPT-J3420 Vitamin B12 1000mcg (Cyanocobalamin) 08:41:26 CDT CPT-19829 Abx/Therapy Injection 08:41:26 CDT CPT-J3420 Vitamin B12 1000mcg (Cyanocobalamin) 08:57:15 CDT CPT-91058 Abx/Therapy Injection 08:57:15 CDT CPT-J3420 Vitamin B12 1000mcg (Cyanocobalamin) 10:59:03 CDT CPT-61378 Abx/Therapy Injection 10:59:03 CDT CPT-J3420 Vitamin B12 1000mcg (Cyanocobalamin) 15:05:39 CDT CPT-88850 Abx/Therapy Injection 15:05:39 CDT CPT-J3420 Vitamin B12 1000mcg (Cyanocobalamin) 13:50:45 CDT CPT-J3420 Vitamin B12 1000mcg (Cyanocobalamin) 08:48:55 CDT CPT-77647 Abx/Therapy Injection 08:48:55 CDT CPT-J3420 Vitamin B12 1000mcg (Cyanocobalamin) 09:14:54 CDT CPT-52190 Abx/Therapy Injection 09:14:54 CDT CPT-J3420 Vitamin B12 1000mcg (Cyanocobalamin) 09:06:06 CDT CPT-81375 Abx/Therapy Injection 09:06:06 CDT CPT-J3420 Vitamin B12 1000mcg (Cyanocobalamin) 09:49:14 CDT CPT-61755 Abx/Therapy Injection 09:49:14 CDT CPT-J3420 Vitamin B12 1000mcg (Cyanocobalamin) 09:10:30 SLUBBER TENDER CPT-20737 Abx/Therapy Injection 09:10:30 SLUBBER TENDER CPT-J3420 Vitamin B12 1000mcg (Cyanocobalamin) 09:11:07 SLUBBER TENDER CPT-37107 Abx/Therapy Injection 09:11:07 SLUBBER TENDER CPT-J3420 Vitamin B12 1000mcg (Cyanocobalamin) 09:57:03 SLUBBER TENDER CPT-62037 Abx/Therapy Injection 09:57:03 SLUBBER TENDER CPT-J3420 Vitamin B12 1000mcg (Cyanocobalamin) 09:23:21 SLUBBER TENDER CPT-93408 Abx/Therapy Injection 09:23:21 SLUBBER TENDER CPT-91236 Urine Dip (Floor Use Only) 20:21:44 SLUBBER TENDER 201 02/12/11 CPT-37498 UA Dip Auto (Floor Use Only) 10:04:39 SLUBBER TENDER 2 CPT-69238 Urine Dip (Floor Use Only) 13:27:28 SLUBBER TENDER 201 02/12/01 CPT-16856 Bladder Scan 13:27:28 SLUBBER TENDER CPT-62948 Abd single AP View 14:30:51 SLUBBER TENDER CPT-OV Office Visit 10:15:43 CDT CPT-80410 Urine Dip (Floor Use Only) 17:22:21 CDT 201 02/09/02 CPT-04821 Bladder Scan 17:22:21 CDT
--- OUTSIDE RECORDS SUMMARY | 2020-05-05 11:29 | XMS REPORT | Clinical Summary ---
Author Author Talon, Jeri Wood Organization [employer] Address Unknown Phone Unavailable Allergies, Adverse Reactions, [...] Routine general medical examination at [facility] Sinusitis 461.9 Resolved Tesfaye Sherman MD [...] MD Routine general medical examination at 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 Edema Peripheral neuropathy 356.9 Active Tesfaye [...] po q hs for sleep AMITRIPTYLINE HCL 58738524987 Active MARCUS Maravilla Active AMITRIPTYLINE HCL 10 MG ORAL TABLET 1 tablet nightly by mout h for neuropathy AMITRIPTYLINE HCL 57713565560 No Longer Active MARCUS Stapleton Active PREDNISONE 20 MG ORAL TABLET 1 tab twice daily for 3 d ay, then one daily for three days PREDNISONE 86927100327 Active Tesfaye Sherman MD Active DIFLUCAN 100 MG ORAL TABLET 1 tablet by mouth daily 20 21/03/11 FLUCONAZOLE 16587061737 No Longer Active Tesfaye Sherman MD Acti ve BACTRIM DS 800-160 MG ORAL TABLET 1 tab by mouth twice daily 201 07/08/06 TRIMETHOPRIM-SULFAMETHOXAZOLE 62988694852 No Longer Active Umer Sherman MD Active CLARITIN 10 MG ORAL TABLET Take one by mouth daily LORATADINE 06290895295 Active Tesfaye Sherman MD Active SUDAFED 12 HOUR 120 MG ORAL TABLET EXTENDED RELEASE 12 HOUR 1 pill twice daily if needed for congestion PSEUDOEPHEDRINE HCL 915314109 13 No Longer Active Tesfaye Sherman MD Active FENOFIBRATE 145 MG ORAL TABLET 1 by mouth daily FENOFIBRATE 96570567711 Active Laurence Dominguez Active GABAPENTIN 300 MG ORAL CAPSULE 1 po daily GABAP ENTIN 05135027952 No Longer Active Tesfaye Sherman MD Active HYDROCHLOROTHIAZIDE 12.5 MG ORAL CAPSULE 1 pill by mough daily 2 HYDROCHLOROTHIAZIDE 75754639749 No Longer Active León Mariee APRN Active VENLAFAXINE HCL 75 MG ORAL TABLET 1 am 1/2 at noon 201 07/07/09 VENLAFAXINE HCL 07527697156 No Longer Active León Mariee APRN Act trent DIFLUCAN 100 MG ORAL TABLET 1 tablet by mouth daily 20 19/02/09 FLUCONAZOLE 42784609481 No Longer Active León Mariee MARKER MACHINE ATTENDANT Active DIFLUCAN 100 MG ORAL TABLET 1 tablet by mouth daily 19/02/09 FLUCONAZOLE 55003351465 No Longer Active León Kodi MARKER MACHINE ATTENDANT Active OXYCODONE-ACETAMINOPHEN 5-325 MG ORAL TABLET Take one tablet by mouth every 6 hours 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 Use sparingly OXYCODONE-ACETAMINOPHEN 47260085473 Active Tesfaye villar MD Active CLONAZEPAM 0.5 MG ORAL TABLET Take 1/2 qam, and 1/2 qpm CLONAZEPAM 26158614684 Active Tesfaye Sherman MD Active PRELIEF 340 (65-50) MG (CA-P) ORAL TABLET CALCIUM GLYCEROPHOSPHATE 04756632616 No Longer Active Tesfaye Sherman MD Active SUDAFED 24 HOUR 240 MG ORAL TABLET EXTENDED RELEASE 24 HOUR 1 tab po daily PSEUDOEPHEDRINE HCL 83112358294 No Longer Active Raul Sherman MD Active RED YEAST RICE 600 MG ORAL CAPSULE 1 pill by mouth daily RED YEAST RICE EXTRACT 47793846657 No Longer Active Tesfaye Sherman MD Active REPHRESH PRO-B ORAL CAPSULE 1 tablet daily LACT OBACILLUS 81349561574 No Longer Active Tesfaye Sherman MD Active ABILIFY 2 MG ORAL TABLET 1 by mouth daily. MARIA ELENA PIPRAZOLE 05665257330 Active Tesfaye Sherman MD Active CYMBALTA 60 MG ORAL CAPSULE DELAYED RELEASE PARTICLES 1 cap by mouth daily for pain DULOXETINE HCL 79463946674 Active Tesfaye Owusu Active DIFLUCAN 100 MG ORAL TABLET 1 tablet by mouth daily 20/06/06 FLUCONAZOLE 03543102894 No Longer Active Tesfaye Sherman MD Acti ve PREDNISONE 20 MG ORAL TABLET 1 tablet by mouth twice d aily for 3 days, then 1 tablet daily for 3 days PREDNISONE 70767352301 No L onger Active Tesfaye Sherman MD Active BACTRIM DS 800-160 MG ORAL TABLET 1 tab by mouth twice daily 201 06/09/02 TRIMETHOPRIM-SULFAMETHOXAZOLE 50761903059 No Longer Active A mirna Dominguez Active DIFLUCAN 100 MG ORAL TABLET 1 tablet by mouth daily 20 20/05/01 FLUCONAZOLE 64021076945 No Longer Active Tesfaye Sherman MD Acti ve ZITHROMAX 250 MG ORAL TABLET 2 po today, then 1 po q days 2-5 20 20/04/28 AZITHROMYCIN 33971952829 No Longer Active Tesfaye Sherman MD Active MECLIZINE HCL 25 MG ORAL TABLET one tab po qday prn dizziness 20 17/09/06 MECLIZINE HCL 59934959252 No Longer Active Tesfaye Sherman MD Active PROAIR HFA 108 (90 BASE) MCG/ACT INHALATION AEROSOL SO LUTION 1 puff every 6 hours as needed ALBUTEROL SULFATE 48016855613 No Long er Active Tesfaye Sherman MD Active PREDNISONE 20 MG ORAL TABLET 1 tab twice daily for 3 d ay, then one daily for three days PREDNISONE 19235920242 No Longer Active Tesfaye Sherman MD Active MECLIZINE HCL 25 MG ORAL TABLET one 4 times a day as needed for dizziness MECLIZINE HCL 08902714176 Active Tesfaye Sherman MD Active AMOXICILLIN 500 MG ORAL CAPSULE 1 cap by mouth three times a day AMOXICILLIN 64314779111 No Longer Active Laurence Lopezduyen Acti ve DIFLUCAN 100 MG ORAL TABLET 1 tablet by mouth daily 20 19/08/26 FLUCONAZOLE 48759268557 No Longer Active Tesfaye Sherman MD Acti ve BACTRIM DS 800-160 MG ORAL TABLET 1 tab by mouth twice daily 201 05/10/28 TRIMETHOPRIM-SULFAMETHOXAZOLE 72030282018 No Longer Active A mirna Angelica Active FOSAMAX 70 MG ORAL TABLET 1 po qweek. Take 30min prio r to first food/drink. Avoid lying down x 1 hour. ALENDRONATE SODIUM 68810672 144 No Longer Active Laurence Dominguez Active CYMBALTA 60 MG ORAL CAPSULE DELAYED RELEASE PARTICLES Take 1 tablet by mouth daily DULOXETINE HCL 83614440965 No Longer Active Edith Burch MD Active CYMBALTA 30 MG ORAL CAPSULE DELAYED RELEASE PARTICLES 1 cap by mouth daily with 60mg DULOXETINE HCL 00214609971 No Longer Active Jordan Burch MD Active FISH OIL 1000 MG ORAL CAPSULE DELAYED RELEASE 1 pill b y mouth daily for cholesterol OMEGA-3 FATTY ACIDS 77978196948 Active Cee Jaffe LPN Active DIFLUCAN 100 MG ORAL TABLET 1 tablet by mouth daily 19/03/05 FLUCONAZOLE 71522687067 No Longer Active Tesfaye Sherman MD Acti ve BACTRIM DS 800-160 MG ORAL TABLET 1 tab by mouth twice daily 201 05/06/28 TRIMETHOPRIM-SULFAMETHOXAZOLE 60946415787 No Longer Active Umer Sherman MD Active BACTRIM DS 800-160 MG ORAL TABLET 1 tab by mouth twice daily 201 05/04/15 TRIMETHOPRIM-SULFAMETHOXAZOLE 77842182718 No Longer Active Umer Sherman MD Active DIFLUCAN 150 MG ORAL TABLET 1 tablet by mouth daily 20 18/09/20 FLUCONAZOLE 05679269428 No Longer Active Tesfaye Sherman MD Acti ve BACTRIM DS 800-160 MG ORAL TABLET 1 tab by mouth twice daily 201 04/13/17 TRIMETHOPRIM-SULFAMETHOXAZOLE 83725060173 No Longer Active Umer Sherman MD Active ROPINIROLE HCL 0.25 MG ORAL TABLET 1 TAB PO Q HS ROPINIROLE HCL 06880690898 Active Tesfaye Sherman MD Active CEFTIN 250 MG ORAL TABLET 1 tablet twice daily x 7 days CEFUROXIME AXETIL 56451572311 No Longer Active Tesfaye Sherman MD Active DIFLUCAN 100 MG ORAL TABLET 1 tablet by mouth every other da y for 2 doses FLUCONAZOLE 50849855997 No Longer Active Tesfaye barron MD Active DIFLUCAN 100 MG ORAL TABLET 1 tablet by mouth daily X 3 DAYS 201 04/09/01 FLUCONAZOLE 10281238246 No Longer Active Rj Lyons tive MIRTAZAPINE 15 MG ORAL TABLET 1/2 tab by mouth at bedtime. 03/13 MIRTAZAPINE 62679121145 No Longer Active Tesfaye Sherman MD Active BACTRIM DS 800-160 MG ORAL TABLET 1 tab by mouth twice daily 201 04/09/01 TRIMETHOPRIM-SULFAMETHOXAZOLE 96478905638 No Longer Active Umer Sherman MD Active PRAMIPEXOLE DIHYDROCHLORIDE 0.125 MG ORAL TABLET take 1 tablet po qhs for restless leg syndrome. PRAMIPEXOLE DIHYDROCHLORI DE 28989779374 No Longer Active Tesfaye Sherman MD Active MAGNESIUM 400 MG ORAL TABLET 1 tab po daily MAGNE SIUM 32732107967 Active Chelsea Cardenas APRN Active CETIRIZINE HCL 5 MG ORAL TABLET Take 1 tablet by mouth daily CETIRIZINE HCL 54697467680 No Longer Active Chelsea Cardenas APRN Activ e TRIMETHOPRIM 100 MG ORAL TABLET 1/2 qd TRIM ETHOPRIM 36993394549 No Longer Active Chelsea Cardenas APRN Active BACTRIM DS 800-160 MG ORAL TABLET 1 tab by mouth twice daily 201 04/04/11 TRIMETHOPRIM-SULFAMETHOXAZOLE 88463266343 No Longer Active Umer Sherman MD Active BACTRIM DS 800-160 MG ORAL TABLET 1 tab by mouth twice daily X 10 DAYS TRIMETHOPRIM-SULFAMETHOXAZOLE 69687375782 No Longer Active Tesfaye Sherman MD Active AMOXICILLIN 500 MG ORAL CAPSULE 1 cap by mouth three times a day AMOXICILLIN 22311595965 No Longer Active MARCUS Maravilla ctive B-12 1000 MCG ORAL LOZENGE 1 tab po daily CYANO COBALAMIN 70047485390 Active Tesfaye Sherman MD Active VITAMIN D3 2000 UNIT ORAL TABLET 1 daily, for vitamin D deficien cy CHOLECALCIFEROL 69473989955 No Longer Active Tesfaye Sherman MD Active TIZANIDINE HCL 2 MG ORAL TABLET take 1-2 tablet by mo uth every day at bedtime at 9pm PRN TIZANIDINE HCL 89234409359 Active Tesfaye hewitt MD Active ZITHROMAX 250 MG ORAL TABLET 2 po today, then 1 po q days 2-5 20 15/02/10 AZITHROMYCIN 27955739046 No Longer Active Tesfaye Sherman MD Active BACTRIM DS 800-160 MG ORAL TABLET 1 tab by mouth twice daily 201 03/03/23 TRIMETHOPRIM-SULFAMETHOXAZOLE 14043781958 No Longer Active Umer Sherman MD Active [facility] NIACIN FLUSH FREE 400-100 MG ORAL CAPSULE 1 daily NIACIN-INOSITOL 12595206680 Active Kayla Cooper MD Activ e DIFLUCAN 150 MG ORAL TABLET 1 qd FLUCONAZOL E 39094953560 No Longer Active Kayla Cooper MD Active FLUTICASONE PROPIONATE 50 MCG/ACT NASAL SUSPENSION 1 spray each nostril twice daily FLUTICASONE PROPIONATE 40933824223 Active Umer Sherman MD Active LOVASTATIN 20 MG ORAL TABLET Take 1 tablet by mouth daily LOVASTATIN 69866412693 No Longer Active Tesfaye Sherman MD Acti ve MELOXICAM 7.5 MG ORAL TABLET 1 tablet by mouth daily 2 MELOXICAM 64914384556 No Longer Active Tesfaye Sherman MD Acti ve GABAPENTIN 300 MG ORAL CAPSULE Take two tablets by mouth every e vening GABAPENTIN 23837381743 No Longer Active Edith Burch MD A ctive BACLOFEN 10 MG ORAL TABLET Take one tablet by mouth three times a d ay BACLOFEN 52519987408 Active Kayla Cooper MD Active GABAPENTIN 300 MG ORAL CAPSULE Take two tablets by mouth every e vening GABAPENTIN 300 MG ORAL CAPSULE 792756 GABAPENTIN I nactive MELOXICAM 7.5 MG ORAL TABLET 1 tablet by mouth daily 2 MELOXICAM 7.5 MG ORAL TABLET 567360 MELOXICAM Inactive LOVASTATIN 20 MG ORAL TABLET Take 1 tablet by mouth daily LOVASTATIN 20 MG ORAL TABLET 122476 LOVASTATIN Inactive DIFLUCAN 150 MG ORAL TABLET 1 qd DIFLUCAN 150 MG ORAL TABLET 727613 FLUCONAZOLE Inactive VITAMIN D3 2000 UNIT ORAL TABLET 1 daily, for vitamin D deficien cy VITAMIN D3 2000 UNIT ORAL TABLET CHOLECALCIFEROL Inactive AMOXICILLIN 500 MG ORAL CAPSULE 1 cap by mouth three times a day AMOXICILLIN 500 MG ORAL CAPSULE 638443 AMOXICILLIN Inactive BACTRIM DS 800-160 MG ORAL TABLET 1 tab by mouth twice daily X 10 DAYS BACTRIM DS 800-160 MG ORAL TABLET 094207 TRIMETHOPRIM-SULFAMETHOXAZOLE Inactive TRIMETHOPRIM 100 MG ORAL TABLET 1/2 qd 7 TRIMETHOPRIM 100 MG ORAL TABLET 796469 TRIMETHOPRIM Inactive CETIRIZINE HCL 5 MG ORAL TABLET Take 1 tablet by mouth daily CETIRIZINE HCL 5 MG ORAL TABLET 5875628 CETIRIZINE HCL Inactive PRAMIPEXOLE DIHYDROCHLORIDE 0.125 MG ORAL TABLET take 1 tablet po qhs for restless leg syndrome. PRAMIPEXOLE DIHYD ROCHLORIDE 0.125 MG ORAL TABLET 262712 PRAMIPEXOLE DIHYDROCHLORIDE Inactive MIRTAZAPINE 15 MG ORAL TABLET 1/2 tab by mouth at bedtime. 03/13 MIRTAZAPINE 15 MG ORAL TABLET 654464 MIRTAZAPINE In active DIFLUCAN 100 MG ORAL TABLET 1 tablet by mouth daily X 3 DAYS 201 04/09/01 DIFLUCAN 100 MG ORAL TABLET 070262 FLUCONAZOLE Inac tive DIFLUCAN 100 MG ORAL TABLET 1 tablet by mouth every other da y for 2 doses DIFLUCAN 100 MG ORAL TABLET 289448 FLUCONAZOLE Inactive CEFTIN 250 MG ORAL TABLET 1 tablet twice daily x 7 days CEFTIN 250 MG ORAL TABLET CEFUROXIME AXETIL Inactive CYMBALTA 30 MG ORAL CAPSULE DELAYED RELEASE PARTICLES 1 cap by mouth daily with 60mg CYMBALTA 30 MG ORAL CAPSULE DELAYED RELEASE PARTICLES 814304 DULOXETINE HCL Inactive CYMBALTA 60 MG ORAL CAPSULE DELAYED RELEASE PARTICLES Take 1 tablet by mouth daily CYMBALTA 60 MG ORAL CAPSULE DELAYED RELEA SE PARTICLES 274149 DULOXETINE HCL Inactive FOSAMAX 70 MG ORAL TABLET 1 po qweek. Take 30min prio r to first food/drink. Avoid lying down x 1 hour. FOSAMAX 70 MG ORAL TA BLET 389240 ALENDRONATE SODIUM Inactive DIFLUCAN 100 MG ORAL TABLET 1 tablet by mouth daily 19/08/26 DIFLUCAN 100 MG ORAL TABLET 745419 FLUCONAZOLE Inactive PREDNISONE 20 MG ORAL TABLET 1 tab twice daily for 3 d ay, then one daily for three days PREDNISONE 20 MG ORAL TABLET 110428 PREDNIS ONE Inactive PROAIR HFA 108 (90 BASE) MCG/ACT INHALATION AEROSOL SO LUTION 1 puff every 6 hours as needed PROAIR HFA 108 (90 B ASE) MCG/ACT INHALATION AEROSOL SOLUTION ALBUTEROL SULFATE Inactive MECLIZINE HCL 25 MG ORAL TABLET one tab po qday prn dizziness 20 17/09/06 MECLIZINE HCL 25 MG ORAL TABLET 405835 MECLIZINE HCL Inactive PREDNISONE 20 MG ORAL TABLET 1 tablet by mouth twice d aily for 3 days, then 1 tablet daily for 3 days PREDNISONE 20 MG ORAL TA BLET 043542 PREDNISONE Inactive DIFLUCAN 100 MG ORAL TABLET 1 tablet by mouth daily 20 20/06/06 DIFLUCAN 100 MG ORAL TABLET 682819 FLUCONAZOLE Inactive REPHRESH PRO-B ORAL CAPSULE 1 tablet daily REPHRESH PRO-B ORAL CAPSULE LACTOBACILLUS Inactive RED YEAST RICE 600 MG ORAL CAPSULE 1 pill by mouth daily RED YEAST RICE 600 MG ORAL CAPSULE 023335 RED YEAST RICE EXTRACT In active SUDAFED [...] 20 19/02/09 DIFLUCAN 100 MG ORAL TABLET 754396 FLUCONAZOLE Inactive DIFLUCAN 100 MG ORAL TABLET 1 tablet by mouth daily 20 19/02/09 DIFLUCAN 100 MG ORAL TABLET 195295 FLUCONAZOLE Inactive VENLAFAXINE HCL 75 MG ORAL TABLET 1 am 1/2 at noon 201 07/07/09 VENLAFAXINE HCL 75 MG ORAL TABLET 914126 VENLAFAXINE HCL Inacti ve GABAPENTIN 300 MG ORAL CAPSULE 1 po daily GABAPENTIN 300 MG ORAL CAPSULE 569980 GABAPENTIN Inactive SUDAFED 12 HOUR 120 MG ORAL TABLET EXTENDED RELEASE 12 HOUR 1 pill twice daily if needed for congestion SUDAFED 12 HOUR 120 MG ORAL TABLET EXTENDED RELEASE 12 HOUR PSEUDOEPHEDRINE HCL Inactive AMITRIPTYLINE HCL 10 MG ORAL TABLET 1 tablet nightly by mout h for neuropathy AMITRIPTYLINE HCL 10 MG ORAL TABLET 975204 AMITRIPTYLINE HCL Inactive BACTRIM DS 800-160 MG ORAL TABLET 1 tab by mouth twice daily 201 03/03/23 BACTRIM DS 800-160 MG ORAL TABLET 540428 TRIMETHOPRIM-SULFAMETHOXAZOLE Inactive ZITHROMAX 250 MG ORAL TABLET 2 po today, then 1 po q days 2-5 20 15/02/10 ZITHROMAX 250 MG ORAL TABLET 971876 AZITHROMYCIN Mayela ctive BACTRIM DS 800-160 MG [...] a day AMOXICILLIN 500 MG ORAL CAPSULE 953080 AMOXICILLIN Inactive ZITHROMAX 250 MG ORAL TABLET 2 po today, then 1 po q days 2-5 20 20/04/28 ZITHROMAX 250 MG ORAL TABLET 251877 AZITHROMYCIN Mayela ctive DIFLUCAN 100 MG ORAL TABLET 1 tablet by mouth daily 20 20/05/01 DIFLUCAN 100 MG ORAL TABLET 19760711 FLUCONAZOLE Inactive BACTRIM DS 800-160 MG ORAL TABLET 1 tab by mouth twice daily 201 06/09/02 BACTRIM DS 800-160 MG ORAL TABLET 19830105 TRIMETHOPRIM-SULFAMETHOXAZOLE Inactive HYDROCHLOROTHIAZIDE 12.5 MG ORAL CAPSULE 1 pill by mough daily 2 HYDROCHLOROTHIAZIDE 12.5 MG [facility]LE [facility] Inactive BACTRIM DS 800-160 MG ORAL TABLET 1 tab by mouth twice daily 201 07/08/06 BACTRIM DS 800-160 MG ORAL TABLET 19830105 TRIMETHOPRIM-SULFAMETHOXAZOLE Inactive DIFLUCAN 100 MG ORAL TABLET 1 tablet by mouth daily 20 21/03/11 DIFLUCAN 100 MG ORAL TABLET 406680 FLUCONAZOLE Inactive Advance Directives Directive Description Start Date PERMISSION TO SHARE DISCUSSED WITH PATIENT -- NO DECISION MADE DURABLE POWER OF ATHLETIC GEAR CUSTODIAN FOR HEALTHCARE DISCUSED WITH PATIENT -- FULL [...] dipstick Trace-lysed Negative sodium, serum 139 mmol/L 414-386 2909/11/07 carbon dioxide, venous blood 28.4 mmol/L 21.0-32 [...] 5.0-8.5 Encounters Code Encounter Date Provider Facility CPT-98903 Level 3 Est. Patient 18:06:36 CDT Tesfaye pearson MD [facility] CPT-17921 [id number] Vst-Est Level IV 17:09:34 C BRIDGET Sherman MD [facility] CPT-14626 Level 3 Est. Patient 17:27:08 CDT León hernandez APRN [facility] CPT-50194 [id number] Vst-Est Level IV 14:00:[address] Tesfaye Sherman MD [facility] CPT-75314 [id number] Vst-Est Level IV 19:27:[address] Tesfaye Sherman MD [facility] CPT-68741 54762-Puv Vst-Est Level IV 10:41:41 C DT Tesfaye Sherman MD [facility]-21203 [id number] Vst-Est Level III 09:40:56 CDT Tesfaye Sherman MD [facility]-75834 Level 4 Est. Patient 22:18:12 CDT Tesfaye pearson MD [facility]-98544 Level 4 Est. Patient 14:44:33 BATTERY TEST ENGINEER Tesfaye pearson MD [facility] CPT-82191 Level 4 Est. Patient 13:55:29 BATTERY TEST ENGINEER Tesfaye pearson MD [facility]-99980 Level 4 Est. Patient 17:07:34 BATTERY TEST ENGINEER Tesfaye pearson MD [facility]-88538 Level 4 Est. Patient 13:56:54 CDT Tesfaye pearson MD [facility]-29328 Level 4 Est. Patient 13:24:25 CDT Chelsea sanz APRN [facility] CPT-37708 Level 4 Est. Patient 09:14:56 CDT Tesfaye pearson MD [facility]-97439 Level 4 Est. Patient 18:40:25 BATTERY TEST ENGINEER Tesfaye pearson MD [facility] CPT-72755 Level 4 Est. Patient 18:13:07 BATTERY TEST ENGINEER Tesfaye pearson MD [facility] CPT-72119 Level 3 Est. Patient 10:46:32 CDT Rj cotto DO [facility] CPT-41179 Level 4 Est. Patient 20:19:25 CDT Tesfaye pearson MD [facility]-83931 Level 3 Est. Patient 09:07:31 CDT Tesfaye pearson MD [facility]-41381 Level 4 Est. Patient 13:12:56 CDT Tesfaye pearson MD [facility]-11061 Level 4 Est. Patient 21:24:55 BATTERY TEST ENGINEER Tesfaye pearson MD [facility] CPT-42848 Level 3 Est. Patient 13:45:04 BATTERY TEST ENGINEER Tesfaye pearson MD [facility] CPT-33324 Level 4 Est. Patient 13:50:45 CDT Tesfaye pearson MD [facility] CPT-68557 Level 3 Est. Patient 10:16:10 CDT Tesfaye pearson MD [facility] CPT-78031 Level 3 Est. Patient 16:36:07 BATTERY TEST ENGINEER Kayla jameson MD [facility] CPT-56714 Level 4 Est. Patient 16:00:14 BATTERY TEST ENGINEER Tesfaye pearson MD [facility] CPT-30467 Level 4 Est. Patient 11:02:24 BATTERY TEST ENGINEER Tesfaye pearson MD [facility] CPT-60700 Level 3 Est. Patient 20:21:43 BATTERY TEST ENGINEER Kayla jameson MD [facility] CPT-77399 Level 3 Est. Patient 13:27:28 BATTERY TEST ENGINEER Kayla jameson MD [facility] CPT-74410 Level 4 Est. Patient 15:57:17 BATTERY TEST ENGINEER Tesfaye pearson MD [facility] CPT-55279 Level 3 New Patient 13:25:47 CDT Tesfaye kidd MD [facility] CPT-97699 Level 3 New Patient 17:22:21 CDT Kayla angel MD [facility] Procedures Code Procedure Name Date Entry Date Standard Desc ription CPT-G0439 Subsequent Annual Wellness Exam 18:06:36 CDT CPT-G0439 Subsequent Annual Wellness Exam 22:18:11 CDT CPT-13113 Bone Density - XRAY USE ONLY 11:43:58 CDT 2 CPT-88101 Bone Density - XRAY USE ONLY 10:05:16 CDT 2 CPT-45642 Prv Med New Pt 40-64 yrs 18:19:25 CDT 2016 CPT-78451 Foot, right, comp min 3V - XRAY USE ONLY 10:38:34 CDT CPT-G0439 Subsequent Annual Wellness Exam 13:55:04 CDT CPT-G0438 Initial Annual Wellness Exam 11:23:17 CD T CPT-J2930 Solu Medrol 125 mg (Methyl Prednisolone Sodium Succinate) 17:29:12 BATTERY TEST ENGINEER CPT-94739 Abx/Therapy Injection 17:29:11 BATTERY TEST ENGINEER CPT-J2930 Solu Medrol 125 mg (Methyl Prednisolone Sodium Succinate) 12:34:38 BATTERY TEST ENGINEER CPT-J3420 Vitamin B12 1000mcg (Cyanocobalamin) 09:12:55 CDT CPT-J3420 Vitamin B12 1000mcg (Cyanocobalamin) 16:28:06 BATTERY TEST ENGINEER CPT-18972 Venipuncture Draw Fee 08:39:53 CDT CPT-J3420 Vitamin B12 1000mcg (Cyanocobalamin) 08:46:22 CDT CPT-17195 Abx/Therapy Injection 08:46:22 CDT CPT-J3420 Vitamin B12 1000mcg (Cyanocobalamin) 08:41:26 CDT CPT-91415 Abx/Therapy Injection 08:41:26 CDT CPT-J3420 Vitamin B12 1000mcg (Cyanocobalamin) 08:57:15 CDT CPT-36555 Abx/Therapy Injection 08:57:15 CDT CPT-J3420 Vitamin B12 1000mcg (Cyanocobalamin) 10:59:03 CDT CPT-30399 Abx/Therapy Injection 10:59:03 CDT CPT-J3420 Vitamin B12 1000mcg (Cyanocobalamin) 15:05:39 CDT CPT-39070 Abx/Therapy Injection 15:05:39 CDT CPT-J3420 Vitamin B12 1000mcg (Cyanocobalamin) 13:50:45 CDT CPT-J3420 Vitamin B12 1000mcg (Cyanocobalamin) 08:48:55 CDT CPT-12892 Abx/Therapy Injection 08:48:55 CDT CPT-J3420 Vitamin B12 1000mcg (Cyanocobalamin) 09:14:54 CDT CPT-61546 Abx/Therapy Injection 09:14:54 CDT CPT-J3420 Vitamin B12 1000mcg (Cyanocobalamin) 09:06:06 CDT CPT-34931 Abx/Therapy Injection 09:06:06 CDT CPT-J3420 Vitamin B12 1000mcg (Cyanocobalamin) 09:49:14 CDT CPT-71938 Abx/Therapy Injection 09:49:14 CDT CPT-J3420 Vitamin B12 1000mcg (Cyanocobalamin) 09:10:30 BATTERY TEST ENGINEER CPT-55902 Abx/Therapy Injection 09:10:30 BATTERY TEST ENGINEER CPT-J3420 Vitamin B12 1000mcg (Cyanocobalamin) 09:11:07 BATTERY TEST ENGINEER CPT-22657 Abx/Therapy Injection 09:11:07 BATTERY TEST ENGINEER CPT-J3420 Vitamin B12 1000mcg (Cyanocobalamin) 09:57:03 BATTERY TEST ENGINEER CPT-04069 Abx/Therapy Injection 09:57:03 BATTERY TEST ENGINEER CPT-J3420 Vitamin B12 1000mcg (Cyanocobalamin) 09:23:21 BATTERY TEST ENGINEER CPT-03738 Abx/Therapy Injection 09:23:21 BATTERY TEST ENGINEER CPT-34729 Urine Dip (Floor Use Only) 20:21:44 BATTERY TEST ENGINEER 201 02/12/11 CPT-90971 UA Dip Auto (Floor Use Only) 10:04:39 BATTERY TEST ENGINEER 2 CPT-34763 Urine Dip (Floor Use Only) 13:27:28 BATTERY TEST ENGINEER 201 02/12/01 CPT-28758 Bladder Scan 13:27:28 BATTERY TEST ENGINEER CPT-06091 Abd single AP View 14:30:51 BATTERY TEST ENGINEER CPT-OV Office Visit 10:15:43 CDT CPT-52235 Urine Dip (Floor Use Only) 17:22:21 CDT 201 02/09/02 CPT-76093 Bladder Scan 17:22:21 CDT
--- OUTSIDE RECORDS SUMMARY | 2020-05-05 11:30 | XMS REPORT | Clinical Summary ---
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 use V58.6 Active Tesfaye Sherman MD Long-term (current) drug use Yeast infection 112.9 Inactive Tesfaye Sherman MD Candidiasis of unspecified site Upper respiratory infection 465.9 Inactive Tesfaye Sherman MD Acute upper respiratory infections of un specified site Lower extremity edema, bilateral 782.3 Active 201 07/07/09 León Kodi REACTOR SERVICE OPERATOR Edema Peripheral neuropathy 356.9 Active Tesfaye [...] po q hs for sleep AMITRIPTYLINE HCL 97115333354 Active MARCUS Maravilla Active AMITRIPTYLINE HCL 10 MG ORAL TABLET 1 tablet nightly by mout h for neuropathy AMITRIPTYLINE HCL 66289391434 No Longer Active MARCUS Stapleton Active PREDNISONE 20 MG ORAL TABLET 1 tab twice daily for 3 d ay, then one daily for three days PREDNISONE 27566930707 Active Tesfaye Sherman MD Active DIFLUCAN 100 MG ORAL TABLET 1 tablet by mouth daily 20 21/03/11 FLUCONAZOLE 50833740729 Active Tesfaye Sherman MD Active BACTRIM DS 800-160 MG ORAL TABLET 1 tab by mouth twice daily 201 07/08/06 TRIMETHOPRIM-SULFAMETHOXAZOLE 84020154378 Active Tesfaye barron MD Active CLARITIN 10 MG ORAL TABLET Take one by mouth daily LORATADINE 55118717714 Active Tesfaye Sherman MD Active SUDAFED 12 HOUR 120 MG ORAL TABLET EXTENDED RELEASE 12 HOUR 1 pill twice daily if needed for congestion PSEUDOEPHEDRINE HCL 895242270 13 No Longer Active Tesfaye Sherman MD Active FENOFIBRATE 145 MG ORAL TABLET 1 by mouth daily FENOFIBRATE 05831618570 Active Laurence Dominguez Active GABAPENTIN 300 MG ORAL CAPSULE 1 po daily GABAP ENTIN 90870674990 No Longer Active Tesfaye Sherman MD Active HYDROCHLOROTHIAZIDE 12.5 MG ORAL CAPSULE 1 pill by mough daily 2 HYDROCHLOROTHIAZIDE 18804731653 No Longer Active León Mariee APRN Active VENLAFAXINE HCL 75 MG ORAL TABLET 1 am 1/2 at noon 201 07/07/09 VENLAFAXINE HCL 59545212786 No Longer Active León Mariee APRN Act trent DIFLUCAN 100 MG ORAL TABLET 1 tablet by mouth daily 20 19/02/09 FLUCONAZOLE 66430206152 No Longer Active León Mariee APRN Active DIFLUCAN 100 MG ORAL TABLET 1 tablet by mouth daily 20 19/02/09 FLUCONAZOLE 31804494631 No Longer Active León Kodi REACTOR SERVICE OPERATOR Active OXYCODONE-ACETAMINOPHEN 5-325 MG ORAL TABLET Take one tablet by mouth every 6 hours 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 Use sparingly OXYCODONE-ACETAMINOPHEN 09444281651 Active Tesfaye villar MD Active CLONAZEPAM 0.5 MG ORAL TABLET Take 1/2 qam, and 1/2 qpm CLONAZEPAM 66766411885 Active Tesfaye Sherman MD Active PRELIEF 340 (65-50) MG (CA-P) ORAL TABLET CALCIUM GLYCEROPHOSPHATE 86626111919 No Longer Active Tesfaye Sherman MD Active SUDAFED 24 HOUR 240 MG ORAL TABLET EXTENDED RELEASE 24 HOUR 1 tab po daily PSEUDOEPHEDRINE HCL 56607382640 No Longer Active Raul Sherman MD Active RED YEAST RICE 600 MG ORAL CAPSULE 1 pill by mouth daily RED YEAST RICE EXTRACT 57361432566 No Longer Active Tesfaye Sherman MD Active REPHRESH PRO-B ORAL CAPSULE 1 tablet daily LACT OBACILLUS 00348667166 No Longer Active Tesfaye Sherman MD Active ABILIFY 2 MG ORAL TABLET 1 by mouth daily. MARIA ELENA PIPRAZOLE 28283433031 Active Tesfaye Sherman MD Active CYMBALTA 60 MG ORAL CAPSULE DELAYED RELEASE PARTICLES 1 cap by mouth daily for pain DULOXETINE HCL 71748837494 Active Tesfaye Owusu Active DIFLUCAN 100 MG ORAL TABLET 1 tablet by mouth daily 20/06/06 FLUCONAZOLE 94751585764 No Longer Active Tesfaye Sherman MD Acti ve PREDNISONE 20 MG ORAL TABLET 1 tablet by mouth twice d aily for 3 days, then 1 tablet daily for 3 days PREDNISONE 70338475818 No L onger Active Tesfaye Sherman MD Active BACTRIM DS 800-160 MG ORAL TABLET 1 tab by mouth twice daily 201 06/09/02 TRIMETHOPRIM-SULFAMETHOXAZOLE 86856738264 No Longer Active A mirna Dominguez Active DIFLUCAN 100 MG ORAL TABLET 1 tablet by mouth daily 20 20/05/01 FLUCONAZOLE 49431256326 No Longer Active Tesfaye Sherman MD Acti ve ZITHROMAX 250 MG ORAL TABLET 2 po today, then 1 po q days 2-5 20 20/04/28 AZITHROMYCIN 14316814328 No Longer Active Tesfaye Sherman MD Active MECLIZINE HCL 25 MG ORAL TABLET one tab po qday prn dizziness 20 17/09/06 MECLIZINE HCL 01345408924 No Longer Active Tesfaye Sherman MD Active PROAIR HFA 108 (90 BASE) MCG/ACT INHALATION AEROSOL SO LUTION 1 puff every 6 hours as needed ALBUTEROL SULFATE 70816382823 No Long er Active Tesfaye Sherman MD Active PREDNISONE 20 MG ORAL TABLET 1 tab twice daily for 3 d ay, then one daily for three days PREDNISONE 55241263767 No Longer Active Tesfaye Sherman MD Active MECLIZINE HCL 25 MG ORAL TABLET one 4 times a day as needed for dizziness MECLIZINE HCL 26891098401 Active Tesfaye Sherman MD Active AMOXICILLIN 500 MG ORAL CAPSULE 1 cap by mouth three times a day AMOXICILLIN 68504999311 No Longer Active Laurence Dominguez Acti ve DIFLUCAN 100 MG ORAL TABLET 1 tablet by mouth daily 20 19/08/26 FLUCONAZOLE 56317158741 No Longer Active Tesfaye Sherman MD Acti ve BACTRIM DS 800-160 MG ORAL TABLET 1 tab by mouth twice daily 201 05/10/28 TRIMETHOPRIM-SULFAMETHOXAZOLE 97827727372 No Longer Active Fer Dominguez Active FOSAMAX 70 MG ORAL TABLET 1 po qweek. Take 30min prio r to first food/drink. Avoid lying down x 1 hour. ALENDRONATE SODIUM 70507115 144 No Longer Active Laurence Dominguez Active CYMBALTA 60 MG ORAL CAPSULE DELAYED RELEASE PARTICLES Take 1 tablet by mouth daily DULOXETINE HCL 06313690369 No Longer Active Edith Burch MD Active CYMBALTA 30 MG ORAL CAPSULE DELAYED RELEASE PARTICLES 1 cap by mouth daily with 60mg DULOXETINE HCL 37252232503 No Longer Active Jordan Burch MD Active FISH OIL 1000 MG ORAL CAPSULE DELAYED RELEASE 1 pill b y mouth daily for cholesterol OMEGA-3 FATTY ACIDS 89859807701 Active Cee Jaffe LPN Active DIFLUCAN 100 MG ORAL TABLET 1 tablet by mouth daily 19/03/05 FLUCONAZOLE 80999621473 No Longer Active Tesfaye Sherman MD Acti ve BACTRIM DS 800-160 MG ORAL TABLET 1 tab by mouth twice daily 201 05/06/28 TRIMETHOPRIM-SULFAMETHOXAZOLE 06897849365 No Longer Active Umer Sherman MD Active BACTRIM DS 800-160 MG ORAL TABLET 1 tab by mouth twice daily 201 05/04/15 TRIMETHOPRIM-SULFAMETHOXAZOLE 01909565985 No Longer Active Umer Sherman MD Active DIFLUCAN 150 MG ORAL TABLET 1 tablet by mouth daily 20 18/09/20 FLUCONAZOLE 84647155888 No Longer Active Tesfaye Sherman MD Acti ve BACTRIM DS 800-160 MG ORAL TABLET 1 tab by mouth twice daily 201 04/13/17 TRIMETHOPRIM-SULFAMETHOXAZOLE 17281755972 No Longer Active Umer Sherman MD Active ROPINIROLE HCL 0.25 MG ORAL TABLET 1 TAB PO Q HS ROPINIROLE HCL 18570337181 Active Tesfaye Sherman MD Active CEFTIN 250 MG ORAL TABLET 1 tablet twice daily x 7 days CEFUROXIME AXETIL 82876235294 No Longer Active Tesfaye Sherman MD Active DIFLUCAN 100 MG ORAL TABLET 1 tablet by mouth every other da y for 2 doses FLUCONAZOLE 60412699396 No Longer Active Tesfaye barron MD Active DIFLUCAN 100 MG ORAL TABLET 1 tablet by mouth daily X 3 DAYS 201 04/09/01 FLUCONAZOLE 76926687910 No Longer Active Rj Lyons tive MIRTAZAPINE 15 MG ORAL TABLET 1/2 tab by mouth at bedtime. 03/13 MIRTAZAPINE 76480210094 No Longer Active Tesfaye Sherman MD Active BACTRIM DS 800-160 MG ORAL TABLET 1 tab by mouth twice daily 201 04/09/01 TRIMETHOPRIM-SULFAMETHOXAZOLE 87599919637 No Longer Active D patricia Sherman MD Active PRAMIPEXOLE DIHYDROCHLORIDE 0.125 MG ORAL TABLET take 1 tablet po qhs for restless leg syndrome. PRAMIPEXOLE DIHYDROCHLORI DE 04895437890 No Longer Active Tesfaye Sherman MD Active MAGNESIUM 400 MG ORAL TABLET 1 tab po daily MAGNE SIUM 77616226056 Active Chelsea Cardenas APRN Active CETIRIZINE HCL 5 MG ORAL TABLET Take 1 tablet by mouth daily CETIRIZINE HCL 83892899246 No Longer Active Chelsea Cardenas APRN Activ e TRIMETHOPRIM 100 MG ORAL TABLET 1/2 qd TRIM ETHOPRIM 04238444045 No Longer Active Chelsea Cardenas APRN Active BACTRIM DS 800-160 MG ORAL TABLET 1 tab by mouth twice daily 201 04/04/11 TRIMETHOPRIM-SULFAMETHOXAZOLE 89458616418 No Longer Active Umer Sherman MD Active BACTRIM DS 800-160 MG ORAL TABLET 1 tab by mouth twice daily X 10 DAYS TRIMETHOPRIM-SULFAMETHOXAZOLE 42190978510 No Longer Active Tesfaye Sherman MD Active AMOXICILLIN 500 MG ORAL CAPSULE 1 cap by mouth three times a day AMOXICILLIN 41356522116 No Longer Active MARCUS Maravilla ctive B-12 1000 MCG ORAL LOZENGE 1 tab po daily CYANO COBALAMIN 47972535947 Active Tesfaye Sherman MD Active VITAMIN D3 2000 UNIT ORAL TABLET 1 daily, for vitamin D deficien cy CHOLECALCIFEROL 59138906164 No Longer Active Tesfaye Sherman MD Active TIZANIDINE HCL 2 MG ORAL TABLET take 1-2 tablet by mo ut every day at bedtime at 9pm PRN TIZANIDINE HCL 67705325683 Active Tesfaye hewitt MD Active ZITHROMAX 250 MG ORAL TABLET 2 po today, then 1 po q days 2-5 20 15/02/10 AZITHROMYCIN 83008418738 No Longer Active Tesfaye Sherman MD Active BACTRIM DS 800-160 MG ORAL TABLET 1 tab by mouth twice daily 201 03/03/23 TRIMETHOPRIM-SULFAMETHOXAZOLE 99309928793 No Longer Active Umer Sherman MD Active [facility] NIACIN FLUSH FREE 400-100 MG ORAL CAPSULE 1 daily NIACIN-INOSITOL 50964876703 Active Kayla Cooper MD Activ e DIFLUCAN 150 MG ORAL TABLET 1 qd FLUCONAZOL E 76845620536 No Longer Active Kayla Cooper MD Active FLUTICASONE PROPIONATE 50 MCG/ACT NASAL SUSPENSION 1 spray each nostril twice daily FLUTICASONE PROPIONATE 45527846603 Active Umer Sherman MD Active LOVASTATIN 20 MG ORAL TABLET Take 1 tablet by mouth daily LOVASTATIN 00856794836 No Longer Active Tesfaye Sherman MD Acti ve MELOXICAM 7.5 MG ORAL TABLET 1 tablet by mouth daily 2 MELOXICAM 69534971483 No Longer Active Tesfaye Sherman MD Acti ve GABAPENTIN 300 MG ORAL CAPSULE Take two tablets by mouth every e vening GABAPENTIN 68938658384 No Longer Active Edith Burch MD A ctive BACLOFEN 10 MG ORAL TABLET Take one tablet by mouth three times a d ay BACLOFEN 16304700611 Active Kayla Cooper MD Active GABAPENTIN 300 MG ORAL CAPSULE Take two tablets by mouth every e vening GABAPENTIN 300 MG ORAL CAPSULE 130536 GABAPENTIN I nactive MELOXICAM 7.5 MG ORAL TABLET 1 tablet by mouth daily 2 MELOXICAM 7.5 MG ORAL TABLET 083996 MELOXICAM Inactive LOVASTATIN 20 MG ORAL TABLET Take 1 tablet by mouth daily LOVASTATIN 20 MG ORAL TABLET 308166 LOVASTATIN Inactive DIFLUCAN 150 MG ORAL TABLET 1 qd DIFLUCAN 150 MG ORAL TABLET 718492 FLUCONAZOLE Inactive VITAMIN D3 2000 UNIT ORAL TABLET 1 daily, for vitamin D deficien cy VITAMIN D3 2000 UNIT ORAL TABLET CHOLECALCIFEROL Inactive AMOXICILLIN 500 MG ORAL CAPSULE 1 cap by mouth three times a day AMOXICILLIN 500 MG ORAL CAPSULE 194316 AMOXICILLIN Inactive BACTRIM DS 800-160 MG ORAL TABLET 1 tab by mouth twice daily X 10 DAYS BACTRIM DS 800-160 MG ORAL TABLET 460453 TRIMETHOPRIM-SULFAMETHOXAZOLE Inactive TRIMETHOPRIM 100 MG ORAL TABLET 1/2 qd 7 TRIMETHOPRIM 100 MG ORAL TABLET 758296 TRIMETHOPRIM Inactive CETIRIZINE HCL 5 MG ORAL TABLET Take 1 tablet by mouth daily CETIRIZINE HCL 5 MG ORAL TABLET 5973676 CETIRIZINE HCL Inactive PRAMIPEXOLE DIHYDROCHLORIDE 0.125 MG ORAL TABLET take 1 tablet po qhs for restless leg syndrome. PRAMIPEXOLE DIHYD ROCHLORIDE 0.125 MG ORAL TABLET 749058 PRAMIPEXOLE DIHYDROCHLORIDE Inactive MIRTAZAPINE 15 MG ORAL TABLET 1/2 tab by mouth at bedtime. 03/13 MIRTAZAPINE 15 MG ORAL TABLET 991249 MIRTAZAPINE In active DIFLUCAN 100 MG ORAL TABLET 1 tablet by mouth daily X 3 DAYS 201 04/09/01 DIFLUCAN 100 MG ORAL TABLET 113892 FLUCONAZOLE Inac tive DIFLUCAN 100 MG ORAL TABLET 1 tablet by mouth every other da y for 2 doses DIFLUCAN 100 MG ORAL TABLET 609922 FLUCONAZOLE Inactive CEFTIN 250 MG ORAL TABLET 1 tablet twice daily x 7 days CEFTIN 250 MG ORAL TABLET CEFUROXIME AXETIL Inactive CYMBALTA 30 MG ORAL CAPSULE DELAYED RELEASE PARTICLES 1 cap by mouth daily with 60mg CYMBALTA 30 MG ORAL CAPSULE DELAYED RELEASE PARTICLES 090733 DULOXETINE HCL Inactive CYMBALTA 60 MG ORAL CAPSULE DELAYED RELEASE PARTICLES Take 1 tablet by mouth daily CYMBALTA 60 MG ORAL CAPSULE DELAYED RELEA SE PARTICLES 034644 DULOXETINE HCL Inactive FOSAMAX 70 MG ORAL TABLET 1 po qweek. Take 30min prio r to first food/drink. Avoid lying down x 1 hour. FOSAMAX 70 MG ORAL TA BLET 947854 ALENDRONATE SODIUM Inactive DIFLUCAN 100 MG ORAL TABLET 1 tablet by mouth daily 19/08/26 DIFLUCAN 100 MG ORAL TABLET 795436 FLUCONAZOLE Inactive PREDNISONE 20 MG ORAL TABLET 1 tab twice daily for 3 d ay, then one daily for three days PREDNISONE 20 MG ORAL TABLET 621683 PREDNIS ONE Inactive PROAIR HFA 108 (90 BASE) MCG/ACT INHALATION AEROSOL SO LUTION 1 puff every 6 hours as needed PROAIR HFA 108 (90 B ASE) MCG/ACT INHALATION AEROSOL SOLUTION ALBUTEROL SULFATE Inactive MECLIZINE HCL 25 MG ORAL TABLET one tab po qday prn dizziness 20 17/09/06 MECLIZINE HCL 25 MG ORAL TABLET 530556 MECLIZINE HCL Inactive PREDNISONE 20 MG ORAL TABLET 1 tablet by mouth twice d aily for 3 days, then 1 tablet daily for 3 days PREDNISONE 20 MG ORAL TA BLET 411389 PREDNISONE Inactive DIFLUCAN 100 MG ORAL TABLET 1 tablet by mouth daily 20/06/06 DIFLUCAN 100 MG ORAL TABLET 356873 FLUCONAZOLE Inactive REPHRESH PRO-B ORAL CAPSULE 1 tablet daily REPHRESH PRO-B ORAL CAPSULE LACTOBACILLUS Inactive RED YEAST RICE 600 MG ORAL CAPSULE 1 pill by mouth daily RED YEAST RICE 600 MG ORAL CAPSULE 146437 RED YEAST RICE EXTRACT In active SUDAFED [...] 20 19/02/09 DIFLUCAN 100 MG ORAL TABLET 636841 FLUCONAZOLE Inactive DIFLUCAN 100 MG ORAL TABLET 1 tablet by mouth daily 20 19/02/09 DIFLUCAN 100 MG ORAL TABLET 620217 FLUCONAZOLE Inactive VENLAFAXINE HCL 75 MG ORAL TABLET 1 am 1/2 at noon 201 07/07/09 VENLAFAXINE HCL 75 MG ORAL TABLET 616363 VENLAFAXINE HCL Inacti ve GABAPENTIN 300 MG ORAL CAPSULE 1 po daily GABAPENTIN 300 MG ORAL CAPSULE 129202 GABAPENTIN Inactive SUDAFED 12 HOUR 120 MG ORAL TABLET EXTENDED RELEASE 12 HOUR 1 pill twice daily if needed for congestion SUDAFED 12 HOUR 120 MG ORAL TABLET EXTENDED RELEASE 12 HOUR PSEUDOEPHEDRINE HCL Inactive AMITRIPTYLINE HCL 10 MG ORAL TABLET 1 tablet nightly by mout h for neuropathy AMITRIPTYLINE HCL 10 MG ORAL TABLET 152851 AMITRIPTYLINE HCL Inactive BACTRIM DS 800-160 MG ORAL TABLET 1 tab by mouth twice daily 201 03/03/23 BACTRIM DS 800-160 MG ORAL TABLET 919523 TRIMETHOPRIM-SULFAMETHOXAZOLE Inactive ZITHROMAX 250 MG ORAL TABLET 2 po today, then 1 po q days 2-5 20 15/02/10 ZITHROMAX 250 MG ORAL TABLET 526696 AZITHROMYCIN Mayela ctive BACTRIM DS 800-160 MG [...] a day AMOXICILLIN 500 MG ORAL CAPSULE 986913 AMOXICILLIN Inactive ZITHROMAX 250 MG ORAL TABLET 2 po today, then 1 po q days 2-5 20 20/04/28 ZITHROMAX 250 MG ORAL TABLET 141327 AZITHROMYCIN Mayela ctive DIFLUCAN 100 MG ORAL TABLET 1 tablet by mouth daily 20 20/05/01 DIFLUCAN 100 MG ORAL TABLET 744755 FLUCONAZOLE Inactive BACTRIM DS 800-160 MG ORAL TABLET 1 tab by mouth twice daily 201 06/09/02 BACTRIM DS 800-160 MG ORAL TABLET 938445 TRIMETHOPRIM-SULFAMETHOXAZOLE Inactive HYDROCHLOROTHIAZIDE 12.5 MG ORAL CAPSULE 1 pill by mough daily 2 HYDROCHLOROTHIAZIDE 12.5 MG ORAL CAPSULE HYDROCH LOROTHIAZIDE Inactive Advance Directives Directive Description Start Date PERMISSION TO SHARE DISCUSSED WITH PATIENT -- NO DECISION MADE DURABLE POWER OF PHARMACEUTICAL SERVICE REPRESENTATIVE FOR HEALTHCARE DISCUSED WITH PATIENT -- FULL CODE Vital Signs Date Name Value Unit Range Description blood pressure, diastolic 76 mm[Hg] BP lyon [...] Results Date Name Value Unit Range Description Chart Maintenance: hemoccult added to fl ow sheet - Chemistry occult blood, stool (E&M) Negative Lab Report: UADIP W/MICRO, AUTO - Chemis [...] dipstick Trace-lysed Negative sodium, serum 139 mmol/L 239-887 2267/11/07 carbon dioxide, venous blood 28.4 mmol/L 21.0-32 [...] 5.0-8.5 Encounters Code Encounter Date Provider Facility CPT-73410 [id number] Vst-Est Level IV 17:09:34 C BRIDGET Sherman MD [facility] CPT-86159 Level 3 Est. Patient 17:27:08 CDT León hernandez APRN [facility]-50765 [id number] Vst-Est Level IV 14:00:[address] Tesfaye Sherman MD [facility]-74679 [id number] Vst-Est Level IV 19:27:[address] Tesfaye Sherman MD [facility]-95730 [id number] Vst-Est Level IV 10:41:41 C BRIDGET Sherman MD [facility]-03252 [id number] Vst-Est Level III 09:40:56 CDT Tesfaye Sherman MD [facility]-41184 Level 4 Est. Patient 22:18:12 CDT Tesfaye pearson MD [facility]-51854 Level 4 Est. Patient 14:44:33 AUTOMOTIVE SOFTWARE ENGINEER Tesfaye pearson MD [facility]-75250 Level 4 Est. Patient 13:55:29 AUTOMOTIVE SOFTWARE ENGINEER Tesfaye pearson MD [facility]-67130 Level 4 Est. Patient 17:07:34 AUTOMOTIVE SOFTWARE ENGINEER Tesfaye pearson MD [facility]-31814 Level 4 Est. Patient 13:56:54 CDT Tesfaye pearson MD [facility] CPT-63624 Level 4 Est. Patient 13:24:25 CDT Chelsea sanz APRN [facility] CPT-11076 Level 4 Est. Patient 09:14:56 CDT Tesfaye pearson MD [facility]-81225 Level 4 Est. Patient 18:40:25 AUTOMOTIVE SOFTWARE ENGINEER Tesfaye pearson MD [facility] CPT-47142 Level 4 Est. Patient 18:13:07 AUTOMOTIVE SOFTWARE ENGINEER Tesfaye pearson MD [facility]-56896 Level 3 Est. Patient 10:46:32 CDT Rj cotto DO [facility] CPT-76516 Level 4 Est. Patient 20:19:25 CDT Tesfaye pearson MD [facility]-59876 Level 3 Est. Patient 09:07:31 CDT Tesfaye pearson MD [facility]-87825 Level 4 Est. Patient 13:12:56 CDT Tesfaye pearson MD [facility]-05940 Level 4 Est. Patient 21:24:55 AUTOMOTIVE SOFTWARE ENGINEER Tesfaye pearson MD [facility] CPT-99396 Level 3 Est. Patient 13:45:04 AUTOMOTIVE SOFTWARE ENGINEER Tesfaye pearson MD [facility] CPT-83697 Level 4 Est. Patient 13:50:45 CDT Tesfaye pearson MD [facility] CPT-08766 Level 3 Est. Patient 10:16:10 CDT Tesfaye pearson MD [facility] CPT-56037 Level 3 Est. Patient 16:36:07 AUTOMOTIVE SOFTWARE ENGINEER Kayla jameson MD [facility]-14870 Level 4 Est. Patient 16:00:14 AUTOMOTIVE SOFTWARE ENGINEER Tesfaye pearson MD [facility]-55015 Level 4 Est. Patient 11:02:24 AUTOMOTIVE SOFTWARE ENGINEER Tesfaye pearson MD [facility] CPT-94817 Level 3 Est. Patient 20:21:43 AUTOMOTIVE SOFTWARE ENGINEER Kayla jameson MD [facility] CPT-91970 Level 3 Est. Patient 13:27:28 AUTOMOTIVE SOFTWARE ENGINEER Kayla jameson MD [facility] CPT-78494 Level 4 Est. Patient 15:57:17 AUTOMOTIVE SOFTWARE ENGINEER Tesfaye pearson MD [facility] CPT-36064 Level 3 New Patient 13:25:47 CDT Tesfaye kidd MD [facility] CPT-33017 Level 3 New Patient 17:22:21 CDT Kayla angel [facility] Procedures Code Procedure Name Date Entry Date Standard Desc ription CPT-G0439 Subsequent Annual Wellness Exam 22:18:11 CDT CPT-21262 Bone Density - XRAY USE ONLY 11:43:58 CDT 2 CPT-52340 Bone Density - XRAY USE ONLY 10:05:16 CDT 2 CPT-61175 Prv Med New Pt 40-64 yrs 18:19:25 CDT 2016 CPT-39877 Foot, right, comp min 3V - XRAY USE ONLY 10:38:34 CDT CPT-G0439 Subsequent Annual Wellness Exam 13:55:04 CDT CPT-G0438 Initial Annual Wellness Exam 11:23:17 CD T CPT-J2930 Solu Medrol 125 mg (Methyl Prednisolone Sodium Succinate) 17:29:12 AUTOMOTIVE SOFTWARE ENGINEER CPT-06041 Abx/Therapy Injection 17:29:11 AUTOMOTIVE SOFTWARE ENGINEER CPT-J2930 Solu Medrol 125 mg (Methyl Prednisolone Sodium Succinate) 12:34:38 AUTOMOTIVE SOFTWARE ENGINEER CPT-J3420 Vitamin B12 1000mcg (Cyanocobalamin) 09:12:55 CDT CPT-J3420 Vitamin B12 1000mcg (Cyanocobalamin) 16:28:06 AUTOMOTIVE SOFTWARE ENGINEER CPT-70342 Venipuncture Draw Fee 08:39:53 CDT CPT-J3420 Vitamin B12 1000mcg (Cyanocobalamin) 08:46:22 CDT CPT-84154 Abx/Therapy Injection 08:46:22 CDT CPT-J3420 Vitamin B12 1000mcg (Cyanocobalamin) 08:41:26 CDT CPT-65257 Abx/Therapy Injection 08:41:26 CDT CPT-J3420 Vitamin B12 1000mcg (Cyanocobalamin) 08:57:15 CDT CPT-70759 Abx/Therapy Injection 08:57:15 CDT CPT-J3420 Vitamin B12 1000mcg (Cyanocobalamin) 10:59:03 CDT CPT-00745 Abx/Therapy Injection 10:59:03 CDT CPT-J3420 Vitamin B12 1000mcg (Cyanocobalamin) 15:05:39 CDT CPT-93426 Abx/Therapy Injection 15:05:39 CDT CPT-J3420 Vitamin B12 1000mcg (Cyanocobalamin) 13:50:45 CDT CPT-J3420 Vitamin B12 1000mcg (Cyanocobalamin) 08:48:55 CDT CPT-19548 Abx/Therapy Injection 08:48:55 CDT CPT-J3420 Vitamin B12 1000mcg (Cyanocobalamin) 09:14:54 CDT CPT-76693 Abx/Therapy Injection 09:14:54 CDT CPT-J3420 Vitamin B12 1000mcg (Cyanocobalamin) 09:06:06 CDT CPT-26033 Abx/Therapy Injection 09:06:06 CDT CPT-J3420 Vitamin B12 1000mcg (Cyanocobalamin) 09:49:14 CDT CPT-98702 Abx/Therapy Injection 09:49:14 CDT CPT-J3420 Vitamin B12 1000mcg (Cyanocobalamin) 09:10:30 AUTOMOTIVE SOFTWARE ENGINEER CPT-43626 Abx/Therapy Injection 09:10:30 AUTOMOTIVE SOFTWARE ENGINEER CPT-J3420 Vitamin B12 1000mcg (Cyanocobalamin) 09:11:07 AUTOMOTIVE SOFTWARE ENGINEER CPT-12767 Abx/Therapy Injection 09:11:07 AUTOMOTIVE SOFTWARE ENGINEER CPT-J3420 Vitamin B12 1000mcg (Cyanocobalamin) 09:57:03 AUTOMOTIVE SOFTWARE ENGINEER CPT-23696 Abx/Therapy Injection 09:57:03 AUTOMOTIVE SOFTWARE ENGINEER CPT-J3420 Vitamin B12 1000mcg (Cyanocobalamin) 09:23:21 AUTOMOTIVE SOFTWARE ENGINEER CPT-68728 Abx/Therapy Injection 09:23:21 AUTOMOTIVE SOFTWARE ENGINEER CPT-43444 Urine Dip (Floor Use Only) 20:21:44 AUTOMOTIVE SOFTWARE ENGINEER 201 02/12/11 CPT-72750 UA Dip Auto (Floor Use Only) 10:04:39 AUTOMOTIVE SOFTWARE ENGINEER 2 CPT-14930 Urine Dip (Floor Use Only) 13:27:28 AUTOMOTIVE SOFTWARE ENGINEER 201 02/12/01 CPT-76136 Bladder Scan 13:27:28 AUTOMOTIVE SOFTWARE ENGINEER CPT-51290 Abd single AP View 14:30:51 AUTOMOTIVE SOFTWARE ENGINEER CPT-OV Office Visit 10:15:43 CDT CPT-95677 Urine Dip (Floor Use Only) 17:22:21 CDT 201 02/09/02 CPT-22111 Bladder Scan 17:22:21 CDT
--- OUTSIDE RECORDS SUMMARY | 2020-05-05 11:30 | XMS REPORT | Clinical Summary ---
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 Tesfaye Sherman MD Long-term (current) drug use Yeast infection 112.9 Inactive Tesfaye Sherman MD Candidiasis of unspecified site Upper respiratory infection 465.9 Inactive Tesfaye Sherman MD Acute upper respiratory infections of un specified site Lower extremity edema, bilateral 782.3 Active 201 07/07/09 León Kodi [employer] Edema Peripheral neuropathy 356.9 Active Tesfaye lamb MD Unspecified hereditary and idiopathic peripheral neuropathy FH Diabetes ICD-V18.0 Inactive Tesfaye Sherman MD [...] po q hs for sleep AMITRIPTYLINE HCL 49228154399 Active MARCUS Maravilla Active AMITRIPTYLINE HCL 10 MG ORAL TABLET 1 tablet nightly by mout h for neuropathy AMITRIPTYLINE HCL 64129996154 No Longer Active MARCUS Stapleton Active PREDNISONE 20 MG ORAL TABLET 1 tab twice daily for 3 d ay, then one daily for three days PREDNISONE 28220180430 Active Tesfaye Sherman MD Active DIFLUCAN 100 MG ORAL TABLET 1 tablet by mouth daily 20 21/03/11 FLUCONAZOLE 98336414957 No Longer Active Tesfaye Sherman MD Acti ve BACTRIM DS 800-160 MG ORAL TABLET 1 tab by mouth twice daily 201 07/08/06 TRIMETHOPRIM-SULFAMETHOXAZOLE 50870024541 No Longer Active Umer Sherman MD Active CLARITIN 10 MG ORAL TABLET Take one by mouth daily LORATADINE 80925693530 Active Tesfaye Sherman MD Active SUDAFED 12 HOUR 120 MG ORAL TABLET EXTENDED RELEASE 12 HOUR 1 pill twice daily if needed for congestion PSEUDOEPHEDRINE HCL 935631157 13 No Longer Active Tesfaye Sherman MD Active FENOFIBRATE 145 MG ORAL TABLET 1 by mouth daily FENOFIBRATE 97604448472 Active Laurence Dominguez Active GABAPENTIN 300 MG ORAL CAPSULE 1 po daily GABAP ENTIN 16092302746 No Longer Active Tesfaye Sherman MD Active HYDROCHLOROTHIAZIDE 12.5 MG ORAL CAPSULE 1 pill by mough daily 2 HYDROCHLOROTHIAZIDE 08659212246 No Longer Active León Mairee APRN Active VENLAFAXINE HCL 75 MG ORAL TABLET 1 am 1/2 at noon 201 07/07/09 VENLAFAXINE HCL 81223708170 No Longer Active León Mariee APRN Act trent DIFLUCAN 100 MG ORAL TABLET 1 tablet by mouth daily 20 19/02/09 FLUCONAZOLE 00692956948 No Longer Active León Mariee [employer] Active DIFLUCAN 100 MG ORAL TABLET 1 tablet by mouth daily 19/02/09 FLUCONAZOLE 22843357667 No Longer Active León Kodi [employer] Active OXYCODONE-ACETAMINOPHEN 5-325 MG ORAL TABLET Take one tablet by mouth every 6 hours 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 Use sparingly OXYCODONE-ACETAMINOPHEN 40169803951 Active Tesfaye villar MD Active CLONAZEPAM 0.5 MG ORAL TABLET Take 1/2 qam, and 1/2 qpm CLONAZEPAM 23224688174 Active Tesfaye Sherman MD Active PRELIEF 340 (65-50) MG (CA-P) ORAL TABLET CALCIUM GLYCEROPHOSPHATE 15185723448 No Longer Active Tesfaye Sherman MD Active SUDAFED 24 HOUR 240 MG ORAL TABLET EXTENDED RELEASE 24 HOUR 1 tab po daily PSEUDOEPHEDRINE HCL 04284081363 No Longer Active Raul Sherman MD Active RED YEAST RICE 600 MG ORAL CAPSULE 1 pill by mouth daily RED YEAST RICE EXTRACT 04124762934 No Longer Active Tesfaye Sherman MD Active REPHRESH PRO-B ORAL CAPSULE 1 tablet daily LACT OBACILLUS 99655324571 No Longer Active Tesfaye Sherman MD Active ABILIFY 2 MG ORAL TABLET 1 by mouth daily. MARIA ELENA PIPRAZOLE 13980918264 Active Tesfaye Sherman MD Active CYMBALTA 60 MG ORAL CAPSULE DELAYED RELEASE PARTICLES 1 cap by mouth daily for pain DULOXETINE HCL 33343599969 Active Tesfaye Owusu Active DIFLUCAN 100 MG ORAL TABLET 1 tablet by mouth daily 20/06/06 FLUCONAZOLE 77494320406 No Longer Active Tesfaye Sherman MD Acti ve PREDNISONE 20 MG ORAL TABLET 1 tablet by mouth twice d aily for 3 days, then 1 tablet daily for 3 days PREDNISONE 30298871955 No L onger Active Tesfaye Sherman MD Active BACTRIM DS 800-160 MG ORAL TABLET 1 tab by mouth twice daily 201 06/09/02 TRIMETHOPRIM-SULFAMETHOXAZOLE 89099329392 No Longer Active A mirna Dominguez Active DIFLUCAN 100 MG ORAL TABLET 1 tablet by mouth daily 20 20/05/01 FLUCONAZOLE 23431697856 No Longer Active Tesfaye Sherman MD Acti ve ZITHROMAX 250 MG ORAL TABLET 2 po today, then 1 po q days 2-5 20 20/04/28 AZITHROMYCIN 81668608049 No Longer Active Tesfaye Sherman MD Active MECLIZINE HCL 25 MG ORAL TABLET one tab po qday prn dizziness 20 17/09/06 MECLIZINE HCL 21099381942 No Longer Active Tesfaye Sherman MD Active PROAIR HFA 108 (90 BASE) MCG/ACT INHALATION AEROSOL SO LUTION 1 puff every 6 hours as needed ALBUTEROL SULFATE 59823475702 No Long er Active Tesfaye Sherman MD Active PREDNISONE 20 MG ORAL TABLET 1 tab twice daily for 3 d ay, then one daily for three days PREDNISONE 59268857585 No Longer Active Tesfaye Sherman MD Active MECLIZINE HCL 25 MG ORAL TABLET one 4 times a day as needed for dizziness MECLIZINE HCL 85801253112 Active Tesfaye Sherman MD Active AMOXICILLIN 500 MG ORAL CAPSULE 1 cap by mouth three times a day AMOXICILLIN 57849992099 No Longer Active Laurence Lopezduyen Acti ve DIFLUCAN 100 MG ORAL TABLET 1 tablet by mouth daily 20 19/08/26 FLUCONAZOLE 65372779240 No Longer Active Tesfaye Sherman MD Acti ve BACTRIM DS 800-160 MG ORAL TABLET 1 tab by mouth twice daily 201 05/10/28 TRIMETHOPRIM-SULFAMETHOXAZOLE 41063271750 No Longer Active A mirna Angelica Active FOSAMAX 70 MG ORAL TABLET 1 po qweek. Take 30min prio r to first food/drink. Avoid lying down x 1 hour. ALENDRONATE SODIUM 63420344 144 No Longer Active Laurence Dominguez Active CYMBALTA 60 MG ORAL CAPSULE DELAYED RELEASE PARTICLES Take 1 tablet by mouth daily DULOXETINE HCL 07710981524 No Longer Active Edith Burch MD Active CYMBALTA 30 MG ORAL CAPSULE DELAYED RELEASE PARTICLES 1 cap by mouth daily with 60mg DULOXETINE HCL 41322520678 No Longer Active Jordan Burch MD Active FISH OIL 1000 MG ORAL CAPSULE DELAYED RELEASE 1 pill b y mouth daily for cholesterol OMEGA-3 FATTY ACIDS 58920024958 Active Cee Jaffe LPN Active DIFLUCAN 100 MG ORAL TABLET 1 tablet by mouth daily 19/03/05 FLUCONAZOLE 83573726626 No Longer Active Tesfaye Sherman MD Acti ve BACTRIM DS 800-160 MG ORAL TABLET 1 tab by mouth twice daily 201 05/06/28 TRIMETHOPRIM-SULFAMETHOXAZOLE 69009315649 No Longer Active Umer Sherman MD Active BACTRIM DS 800-160 MG ORAL TABLET 1 tab by mouth twice daily 201 05/04/15 TRIMETHOPRIM-SULFAMETHOXAZOLE 21638105417 No Longer Active Umer Sherman MD Active DIFLUCAN 150 MG ORAL TABLET 1 tablet by mouth daily 20 18/09/20 FLUCONAZOLE 08461175343 No Longer Active Tesfaye Sherman MD Acti ve BACTRIM DS 800-160 MG ORAL TABLET 1 tab by mouth twice daily 201 04/13/17 TRIMETHOPRIM-SULFAMETHOXAZOLE 53957405682 No Longer Active Umer Sherman MD Active ROPINIROLE HCL 0.25 MG ORAL TABLET 1 TAB PO Q HS ROPINIROLE HCL 82866676914 Active Tesfaye Sherman MD Active CEFTIN 250 MG ORAL TABLET 1 tablet twice daily x 7 days CEFUROXIME AXETIL 47686270546 No Longer Active Tesfaye Sherman MD Active DIFLUCAN 100 MG ORAL TABLET 1 tablet by mouth every other da y for 2 doses FLUCONAZOLE 10556746834 No Longer Active Tesfaye barron MD Active DIFLUCAN 100 MG ORAL TABLET 1 tablet by mouth daily X 3 DAYS 201 04/09/01 FLUCONAZOLE 96977358089 No Longer Active Rj Lyons tive MIRTAZAPINE 15 MG ORAL TABLET 1/2 tab by mouth at bedtime. 03/13 MIRTAZAPINE 19855940540 No Longer Active Tsefaye Sherman MD Active BACTRIM DS 800-160 MG ORAL TABLET 1 tab by mouth twice daily 201 04/09/01 TRIMETHOPRIM-SULFAMETHOXAZOLE 27708840086 No Longer Active Umer Sherman MD Active PRAMIPEXOLE DIHYDROCHLORIDE 0.125 MG ORAL TABLET take 1 tablet po qhs for restless leg syndrome. PRAMIPEXOLE DIHYDROCHLORI DE 05258475463 No Longer Active Tesfaye Sherman MD Active MAGNESIUM 400 MG ORAL TABLET 1 tab po daily MAGNE SIUM 53039883198 Active Chelsea Cardenas APRN Active CETIRIZINE HCL 5 MG ORAL TABLET Take 1 tablet by mouth daily CETIRIZINE HCL 23901413720 No Longer Active Chelsea Cardenas APRN Activ e TRIMETHOPRIM 100 MG ORAL TABLET 1/2 qd TRIM ETHOPRIM 48759539121 No Longer Active Chelsea Cardenas APRN Active BACTRIM DS 800-160 MG ORAL TABLET 1 tab by mouth twice daily 201 04/04/11 TRIMETHOPRIM-SULFAMETHOXAZOLE 46564701098 No Longer Active Umer Sherman MD Active BACTRIM DS 800-160 MG ORAL TABLET 1 tab by mouth twice daily X 10 DAYS TRIMETHOPRIM-SULFAMETHOXAZOLE 83503925631 No Longer Active Tesfaye Sherman MD Active AMOXICILLIN 500 MG ORAL CAPSULE 1 cap by mouth three times a day AMOXICILLIN 59462403516 No Longer Active MARCUS Maravilla ctive B-12 1000 MCG ORAL LOZENGE 1 tab po daily CYANO COBALAMIN 44067897123 Active Tesfaye Sherman MD Active VITAMIN D3 2000 UNIT ORAL TABLET 1 daily, for vitamin D deficien cy CHOLECALCIFEROL 59389323729 No Longer Active Tesfaye Sherman MD Active TIZANIDINE HCL 2 MG ORAL TABLET take 1-2 tablet by mo uth every day at bedtime at 9pm PRN TIZANIDINE HCL 04672590056 Active Tesfaye hewitt MD Active ZITHROMAX 250 MG ORAL TABLET 2 po today, then 1 po q days 2-5 20 15/02/10 AZITHROMYCIN 05968434329 No Longer Active Tesafye Sherman MD Active BACTRIM DS 800-160 MG ORAL TABLET 1 tab by mouth twice daily 201 03/03/23 TRIMETHOPRIM-SULFAMETHOXAZOLE 25198536744 No Longer Active Umer Sherman MD Active [facility] NIACIN FLUSH FREE 400-100 MG ORAL CAPSULE 1 daily NIACIN-INOSITOL 30277069990 Active Kayla Cooper MD Activ e DIFLUCAN 150 MG ORAL TABLET 1 qd FLUCONAZOL E 13583913937 No Longer Active Kayla Cooper MD Active FLUTICASONE PROPIONATE 50 MCG/ACT NASAL SUSPENSION 1 spray each nostril twice daily FLUTICASONE PROPIONATE 72799289968 Active Umer Sherman MD Active LOVASTATIN 20 MG ORAL TABLET Take 1 tablet by mouth daily LOVASTATIN 77635761838 No Longer Active Tesfaye Sherman MD Acti ve MELOXICAM 7.5 MG ORAL TABLET 1 tablet by mouth daily 2 MELOXICAM 51041556351 No Longer Active Tesfaye Sherman MD Acti ve GABAPENTIN 300 MG ORAL CAPSULE Take two tablets by mouth every e vening GABAPENTIN 63364744714 No Longer Active Edith Burch MD A ctive BACLOFEN 10 MG ORAL TABLET Take one tablet by mouth three times a d ay BACLOFEN 21842322691 Active Kayla Cooper MD Active GABAPENTIN 300 MG ORAL CAPSULE Take two tablets by mouth every e vening GABAPENTIN 300 MG ORAL CAPSULE 732776 GABAPENTIN I nactive MELOXICAM 7.5 MG ORAL TABLET 1 tablet by mouth daily 2 MELOXICAM 7.5 MG ORAL TABLET 866088 MELOXICAM Inactive LOVASTATIN 20 MG ORAL TABLET Take 1 tablet by mouth daily LOVASTATIN 20 MG ORAL TABLET 221894 LOVASTATIN Inactive DIFLUCAN 150 MG ORAL TABLET 1 qd DIFLUCAN 150 MG ORAL TABLET 820506 FLUCONAZOLE Inactive VITAMIN D3 2000 UNIT ORAL TABLET 1 daily, for vitamin D deficien cy VITAMIN D3 2000 UNIT ORAL TABLET CHOLECALCIFEROL Inactive AMOXICILLIN 500 MG ORAL CAPSULE 1 cap by mouth three times a day AMOXICILLIN 500 MG ORAL CAPSULE 279930 AMOXICILLIN Inactive BACTRIM DS 800-160 MG ORAL TABLET 1 tab by mouth twice daily X 10 DAYS BACTRIM DS 800-160 MG ORAL TABLET 932009 TRIMETHOPRIM-SULFAMETHOXAZOLE Inactive TRIMETHOPRIM 100 MG ORAL TABLET 1/2 qd 7 TRIMETHOPRIM 100 MG ORAL TABLET 598339 TRIMETHOPRIM Inactive CETIRIZINE HCL 5 MG ORAL TABLET Take 1 tablet by mouth daily CETIRIZINE HCL 5 MG ORAL TABLET 3433265 CETIRIZINE HCL Inactive PRAMIPEXOLE DIHYDROCHLORIDE 0.125 MG ORAL TABLET take 1 tablet po qhs for restless leg syndrome. PRAMIPEXOLE DIHYD ROCHLORIDE 0.125 MG ORAL TABLET 606113 PRAMIPEXOLE DIHYDROCHLORIDE Inactive MIRTAZAPINE 15 MG ORAL TABLET 1/2 tab by mouth at bedtime. 03/13 MIRTAZAPINE 15 MG ORAL TABLET 926644 MIRTAZAPINE In active DIFLUCAN 100 MG ORAL TABLET 1 tablet by mouth daily X 3 DAYS 201 04/09/01 DIFLUCAN 100 MG ORAL TABLET 494475 FLUCONAZOLE Inac tive DIFLUCAN 100 MG ORAL TABLET 1 tablet by mouth every other da y for 2 doses DIFLUCAN 100 MG ORAL TABLET 078932 FLUCONAZOLE Inactive CEFTIN 250 MG ORAL TABLET 1 tablet twice daily x 7 days CEFTIN 250 MG ORAL TABLET CEFUROXIME AXETIL Inactive CYMBALTA 30 MG ORAL CAPSULE DELAYED RELEASE PARTICLES 1 cap by mouth daily with 60mg CYMBALTA 30 MG ORAL CAPSULE DELAYED RELEASE PARTICLES 450473 DULOXETINE HCL Inactive CYMBALTA 60 MG ORAL CAPSULE DELAYED RELEASE PARTICLES Take 1 tablet by mouth daily CYMBALTA 60 MG ORAL CAPSULE DELAYED RELEA SE PARTICLES 028935 DULOXETINE HCL Inactive FOSAMAX 70 MG ORAL TABLET 1 po qweek. Take 30min prio r to first food/drink. Avoid lying down x 1 hour. FOSAMAX 70 MG ORAL TA BLET 423705 ALENDRONATE SODIUM Inactive DIFLUCAN 100 MG ORAL TABLET 1 tablet by mouth daily 19/08/26 DIFLUCAN 100 MG ORAL TABLET 915367 FLUCONAZOLE Inactive PREDNISONE 20 MG ORAL TABLET 1 tab twice daily for 3 d ay, then one daily for three days PREDNISONE 20 MG ORAL TABLET 632655 PREDNIS ONE Inactive PROAIR HFA 108 (90 BASE) MCG/ACT INHALATION AEROSOL SO LUTION 1 puff every 6 hours as needed PROAIR HFA 108 (90 B ASE) MCG/ACT INHALATION AEROSOL SOLUTION ALBUTEROL SULFATE Inactive MECLIZINE HCL 25 MG ORAL TABLET one tab po qday prn dizziness 20 17/09/06 MECLIZINE HCL 25 MG ORAL TABLET 015814 MECLIZINE HCL Inactive PREDNISONE 20 MG ORAL TABLET 1 tablet by mouth twice d aily for 3 days, then 1 tablet daily for 3 days PREDNISONE 20 MG ORAL TA BLET 709154 PREDNISONE Inactive DIFLUCAN 100 MG ORAL TABLET 1 tablet by mouth daily 20 20/06/06 DIFLUCAN 100 MG ORAL TABLET 463917 FLUCONAZOLE Inactive REPHRESH PRO-B ORAL CAPSULE 1 tablet daily REPHRESH PRO-B ORAL CAPSULE LACTOBACILLUS Inactive RED YEAST RICE 600 MG ORAL CAPSULE 1 pill by mouth daily RED YEAST RICE 600 MG ORAL CAPSULE 661620 RED YEAST RICE EXTRACT In active SUDAFED [...] 20 19/02/09 DIFLUCAN 100 MG ORAL TABLET 607288 FLUCONAZOLE Inactive DIFLUCAN 100 MG ORAL TABLET 1 tablet by mouth daily 20 19/02/09 DIFLUCAN 100 MG ORAL TABLET 484169 FLUCONAZOLE Inactive VENLAFAXINE HCL 75 MG ORAL TABLET 1 am 1/2 at noon 201 07/07/09 VENLAFAXINE HCL 75 MG ORAL TABLET 144901 VENLAFAXINE HCL Inacti ve GABAPENTIN 300 MG ORAL CAPSULE 1 po daily GABAPENTIN 300 MG ORAL CAPSULE 339780 GABAPENTIN Inactive SUDAFED 12 HOUR 120 MG ORAL TABLET EXTENDED RELEASE 12 HOUR 1 pill twice daily if needed for congestion SUDAFED 12 HOUR 120 MG ORAL TABLET EXTENDED RELEASE 12 HOUR PSEUDOEPHEDRINE HCL Inactive AMITRIPTYLINE HCL 10 MG ORAL TABLET 1 tablet nightly by mout h for neuropathy AMITRIPTYLINE HCL 10 MG ORAL TABLET 520126 AMITRIPTYLINE HCL Inactive BACTRIM DS 800-160 MG ORAL TABLET 1 tab by mouth twice daily 201 03/03/23 BACTRIM DS 800-160 MG ORAL TABLET 666748 TRIMETHOPRIM-SULFAMETHOXAZOLE Inactive ZITHROMAX 250 MG ORAL TABLET 2 po today, then 1 po q days 2-5 20 15/02/10 ZITHROMAX 250 MG ORAL TABLET 803940 AZITHROMYCIN Mayela ctive BACTRIM DS 800-160 MG [...] a day AMOXICILLIN 500 MG ORAL CAPSULE 870368 AMOXICILLIN Inactive ZITHROMAX 250 MG ORAL TABLET 2 po today, then 1 po q days 2-5 20 20/04/28 ZITHROMAX 250 MG ORAL TABLET 958650 AZITHROMYCIN Mayela ctive DIFLUCAN 100 MG ORAL TABLET 1 tablet by mouth daily 20 20/05/01 DIFLUCAN 100 MG ORAL TABLET 19760711 FLUCONAZOLE Inactive BACTRIM DS 800-160 MG ORAL TABLET 1 tab by mouth twice daily 201 06/09/02 BACTRIM DS 800-160 MG ORAL TABLET 19830105 TRIMETHOPRIM-SULFAMETHOXAZOLE Inactive HYDROCHLOROTHIAZIDE 12.5 MG ORAL CAPSULE 1 pill by mough daily 2 HYDROCHLOROTHIAZIDE 12.5 [facility] Inactive BACTRIM DS 800-160 MG ORAL TABLET 1 tab by mouth twice daily 201 07/08/06 BACTRIM DS 800-160 MG ORAL TABLET 19830105 TRIMETHOPRIM-SULFAMETHOXAZOLE Inactive DIFLUCAN 100 MG ORAL TABLET 1 tablet by mouth daily 20 21/03/11 DIFLUCAN 100 MG ORAL TABLET 744250 FLUCONAZOLE Inactive Advance Directives Directive Description Start Date PERMISSION TO SHARE DISCUSSED WITH PATIENT -- NO DECISION MADE DURABLE POWER OF DROP CLIPPER FOR HEALTHCARE DISCUSED WITH PATIENT -- FULL [...] dipstick Trace-lysed Negative sodium, serum 139 mmol/L 157-644 6545/11/07 carbon dioxide, venous blood 28.4 mmol/L 21.0-32 [...] 5.0-8.5 Encounters Code Encounter Date Provider Facility CPT-95937 Level 3 Est. Patient 18:06:36 CDT Tesfaye pearson MD [facility] CPT-58409 [id number] Vst-Est Level IV 17:09:34 C BRIDGET Sherman MD [facility] CPT-15898 Level 3 Est. Patient 17:27:08 CDT León hernandez APRN [facility] CPT-68360 [id number] Vst-Est Level IV 14:00:[address] Tesfaye Sherman MD [facility] CPT-40705 [id number] Vst-Est Level IV 19:27:[address] Tesfaye Sherman MD [facility] CPT-11065 [id number] Vst-Est Level IV 10:41:41 C DT Tesfaye Sherman MD [facility]-69142 [id number] Vst-Est Level III 09:40:56 CDT Tesfaye Sherman MD [facility]-82767 Level 4 Est. Patient 22:18:12 CDT Tesfaye pearson MD [facility]-00433 Level 4 Est. Patient 14:44:33 DRAW OFF WORKER Tesfaye pearson MD [facility] CPT-16961 Level 4 Est. Patient 13:55:29 DRAW OFF WORKER Tesfaye pearson MD [facility]-77863 Level 4 Est. Patient 17:07:34 DRAW OFF WORKER Tesfaye pearson MD [facility]-96983 Level 4 Est. Patient 13:56:54 CDT Tesfaye pearson MD [facility]-91542 Level 4 Est. Patient 13:24:25 CDT Chelsea sanz APRN [facility] CPT-93287 Level 4 Est. Patient 09:14:56 CDT Tesfaye pearson MD [facility]-64927 Level 4 Est. Patient 18:40:25 DRAW OFF WORKER Tesfaye pearson MD [facility] CPT-51973 Level 4 Est. Patient 18:13:07 DRAW OFF WORKER Tesfaye pearson MD [facility] CPT-45225 Level 3 Est. Patient 10:46:32 CDT Rj cotto DO [facility] CPT-40421 Level 4 Est. Patient 20:19:25 CDT Tesfaye pearson MD [facility]-18420 Level 3 Est. Patient 09:07:31 CDT Tesfaye pearson MD [facility]-90422 Level 4 Est. Patient 13:12:56 CDT Tesfaye pearson MD [facility]-09328 Level 4 Est. Patient 21:24:55 DRAW OFF WORKER Tesfaye pearson MD [facility] CPT-68505 Level 3 Est. Patient 13:45:04 DRAW OFF WORKER Tesfaye pearson MD [facility] CPT-44069 Level 4 Est. Patient 13:50:45 CDT Tesfaye pearson MD [facility] CPT-23340 Level 3 Est. Patient 10:16:10 CDT Tesfaye pearson MD [facility] CPT-12339 Level 3 Est. Patient 16:36:07 DRAW OFF WORKER Kayla jameson MD [facility] CPT-66567 Level 4 Est. Patient 16:00:14 DRAW OFF WORKER Tesfaye pearson MD [facility] CPT-54839 Level 4 Est. Patient 11:02:24 DRAW OFF WORKER Tesfaye pearson MD [facility] CPT-50757 Level 3 Est. Patient 20:21:43 DRAW OFF WORKER Kayla jameson MD [facility] CPT-78028 Level 3 Est. Patient 13:27:28 DRAW OFF WORKER Kayla jameson MD [facility] CPT-09012 Level 4 Est. Patient 15:57:17 DRAW OFF WORKER Tesfaye pearson MD [facility] CPT-71310 Level 3 New Patient 13:25:47 CDT Tesfaye kidd MD [facility] CPT-15644 Level 3 New Patient 17:22:21 CDT Kayla angel MD [facility] Procedures Code Procedure Name Date Entry Date Standard Desc ription CPT-G0439 Subsequent Annual Wellness Exam 18:06:36 CDT CPT-G0439 Subsequent Annual Wellness Exam 22:18:11 CDT CPT-68314 Bone Density - XRAY USE ONLY 11:43:58 CDT 2 CPT-50449 Bone Density - XRAY USE ONLY 10:05:16 CDT 2 CPT-74555 Prv Med New Pt 40-64 yrs 18:19:25 CDT 2016 CPT-15518 Foot, right, comp min 3V - XRAY USE ONLY 10:38:34 CDT CPT-G0439 Subsequent Annual Wellness Exam 13:55:04 CDT CPT-G0438 Initial Annual Wellness Exam 11:23:17 CD T CPT-J2930 Solu Medrol 125 mg (Methyl Prednisolone Sodium Succinate) 17:29:12 DRAW OFF WORKER CPT-01657 Abx/Therapy Injection 17:29:11 DRAW OFF WORKER CPT-J2930 Solu Medrol 125 mg (Methyl Prednisolone Sodium Succinate) 12:34:38 DRAW OFF WORKER CPT-J3420 Vitamin B12 1000mcg (Cyanocobalamin) 09:12:55 CDT CPT-J3420 Vitamin B12 1000mcg (Cyanocobalamin) 16:28:06 DRAW OFF WORKER CPT-57177 Venipuncture Draw Fee 08:39:53 CDT CPT-J3420 Vitamin B12 1000mcg (Cyanocobalamin) 08:46:22 CDT CPT-28135 Abx/Therapy Injection 08:46:22 CDT CPT-J3420 Vitamin B12 1000mcg (Cyanocobalamin) 08:41:26 CDT CPT-53495 Abx/Therapy Injection 08:41:26 CDT CPT-J3420 Vitamin B12 1000mcg (Cyanocobalamin) 08:57:15 CDT CPT-49405 Abx/Therapy Injection 08:57:15 CDT CPT-J3420 Vitamin B12 1000mcg (Cyanocobalamin) 10:59:03 CDT CPT-12929 Abx/Therapy Injection 10:59:03 CDT CPT-J3420 Vitamin B12 1000mcg (Cyanocobalamin) 15:05:39 CDT CPT-95224 Abx/Therapy Injection 15:05:39 CDT CPT-J3420 Vitamin B12 1000mcg (Cyanocobalamin) 13:50:45 CDT CPT-J3420 Vitamin B12 1000mcg (Cyanocobalamin) 08:48:55 CDT CPT-91435 Abx/Therapy Injection 08:48:55 CDT CPT-J3420 Vitamin B12 1000mcg (Cyanocobalamin) 09:14:54 CDT CPT-76307 Abx/Therapy Injection 09:14:54 CDT CPT-J3420 Vitamin B12 1000mcg (Cyanocobalamin) 09:06:06 CDT CPT-62000 Abx/Therapy Injection 09:06:06 CDT CPT-J3420 Vitamin B12 1000mcg (Cyanocobalamin) 09:49:14 CDT CPT-06775 Abx/Therapy Injection 09:49:14 CDT CPT-J3420 Vitamin B12 1000mcg (Cyanocobalamin) 09:10:30 DRAW OFF WORKER CPT-85355 Abx/Therapy Injection 09:10:30 DRAW OFF WORKER CPT-J3420 Vitamin B12 1000mcg (Cyanocobalamin) 09:11:07 DRAW OFF WORKER CPT-29013 Abx/Therapy Injection 09:11:07 DRAW OFF WORKER CPT-J3420 Vitamin B12 1000mcg (Cyanocobalamin) 09:57:03 DRAW OFF WORKER CPT-18347 Abx/Therapy Injection 09:57:03 DRAW OFF WORKER CPT-J3420 Vitamin B12 1000mcg (Cyanocobalamin) 09:23:21 DRAW OFF WORKER CPT-85307 Abx/Therapy Injection 09:23:21 DRAW OFF WORKER CPT-30639 Urine Dip (Floor Use Only) 20:21:44 DRAW OFF WORKER 201 02/12/11 CPT-53270 UA Dip Auto (Floor Use Only) 10:04:39 DRAW OFF WORKER 2 CPT-20697 Urine Dip (Floor Use Only) 13:27:28 DRAW OFF WORKER 201 02/12/01 CPT-37930 Bladder Scan 13:27:28 DRAW OFF WORKER CPT-21340 Abd single AP View 14:30:51 DRAW OFF WORKER CPT-OV Office Visit 10:15:43 CDT CPT-23641 Urine Dip (Floor Use Only) 17:22:21 CDT 201 02/09/02 CPT-05116 Bladder Scan 17:22:21 CDT
--- OUTSIDE RECORDS SUMMARY | 2020-05-05 11:31 | XMS REPORT | Clinical Summary ---
Author Author Talon, Jeri Wood Organization [employer] Address Unknown Phone Unavailable Allergies, Adverse Reactions, [...] MD Routine general medical examination at a [facility] acility Body Mass Index 21.0-21.9 Adult [...] bilateral 782.3 Active 201 07/07/09 León Kodi WIPING RAG WASHER Edema Peripheral neuropathy 356.9 Active Tesfaye lamb MD Unspecified hereditary and idiopathic peripheral neuropathy FH Depression ICD-V17.0 Inactive Tesfaye Sherman MD FH Diabetes ICD-V18.0 Inactive Tesfaye Sherman MD 20 22/12/06 WELL WOMAN EXAMINATION ICD-V72.31 Inactive Wilner Sherman MD Preventive health care ICD-V70.0 Inactive Wilner Sherman MD Sinusitis ICD-461.9 Inactive Tesfaye Owusu Dysuria ICD-788.1 Inactive Tesfaye Sherman MD 201 07/05/07 Sinusitis ICD-473.9 Inactive Tesafye Owusu Dysuria ICD-788.1 Inactive Tesfaye Sherman MD [...] Generic Name ND Status Provider Patient Instruction FENOFIBRATE 145 MG ORAL TABLET 1 by mouth daily FENOFIBRATE 00316735984 Active Laurence Dominguez Active AMITRIPTYLINE HCL 10 MG ORAL TABLET 1 tablet nightly by mout h for neuropathy AMITRIPTYLINE HCL 19907660286 Active Tesfaye Sherman MD Active GABAPENTIN 300 MG ORAL CAPSULE 1 po daily GABAP ENTIN 32898135071 No Longer Active Tesfaye Sherman MD Active HYDROCHLOROTHIAZIDE 12.5 MG ORAL CAPSULE 1 pill by mough daily 2 HYDROCHLOROTHIAZIDE 23373618544 No Longer Active León Mariee APRN Active VENLAFAXINE HCL 75 MG ORAL TABLET 1 am 1/ at noon 201 07/07/09 VENLAFAXINE HCL 02940793152 No Longer Active León Mariee APRN Act trent DIFLUCAN 100 MG ORAL TABLET 1 tablet by mouth daily 20 19/02/09 FLUCONAZOLE 30707199796 No Longer Active León Kodi [employer]IPING RAG WASHER Active DIFLUCAN 100 MG ORAL TABLET 1 tablet by mouth daily 20 19/02/09 FLUCONAZOLE 74188065706 No Longer Active Leónkash Mariee APRN Active OXYCODONE-ACETAMINOPHEN 5-325 MG ORAL TABLET Take one tablet by mouth every 6 hours 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 Use sparingly OXYCODONE-ACETAMINOPHEN 46847754788 Active Tesfaye villar MD Active CLONAZEPAM 0.5 MG ORAL TABLET Take 1/2 qam, and 1/2 qpm CLONAZEPAM 06338207506 Active Tesfaye Sherman MD Active PRELIEF 340 (65-50) MG (CA-P) ORAL TABLET CALCIUM GLYCEROPHOSPHATE 82779696857 No Longer Active Tesfaye Sherman MD Active SUDAFED 24 HOUR 240 MG ORAL TABLET EXTENDED RELEASE 24 HOUR 1 tab po daily PSEUDOEPHEDRINE HCL 65410377539 No Longer Active Raul Sherman MD Active RED YEAST RICE 600 MG ORAL CAPSULE 1 pill by mouth daily RED YEAST RICE EXTRACT 19932757976 No Longer Active Tesfaye Sherman MD Active REPHRESH PRO-B ORAL CAPSULE 1 tablet daily LACT OBACILLUS 25445970102 No Longer Active Tesfaye Sherman MD Active SUDAFED 12 HOUR 120 MG ORAL TABLET EXTENDED RELEASE 12 HOUR 1 pill twice daily if needed for congestion PSEUDOEPHEDRINE HCL 50845240460 A ctive Tesfaye Sherman MD Active ABILIFY 2 MG ORAL TABLET 1 by mouth daily. MARIA ELENA PIPRAZOLE 54240032407 Active Tesfaye Sherman MD Active CYMBALTA 60 MG ORAL CAPSULE DELAYED RELEASE PARTICLES 1 cap by mouth daily for pain DULOXETINE HCL 86146442511 Active Tesfaye Owusu Active DIFLUCAN 100 MG ORAL TABLET 1 tablet by mouth daily 20 20/06/06 FLUCONAZOLE 62072747462 No Longer Active Tesfaye Sherman MD Acti ve PREDNISONE 20 MG ORAL TABLET 1 tablet by mouth twice d aily for 3 days, then 1 tablet daily for 3 days PREDNISONE 56619511530 No L onger Active Tesfaye Sherman MD Active BACTRIM DS 800-160 MG ORAL TABLET 1 tab by mouth twice daily 201 06/09/02 TRIMETHOPRIM-SULFAMETHOXAZOLE 58333198059 No Longer Active Fer Dominguez Active DIFLUCAN 100 MG ORAL TABLET 1 tablet by mouth daily 20 20/05/01 FLUCONAZOLE 22281601272 No Longer Active Tesfaye Sherman MD Acti ve ZITHROMAX 250 MG ORAL TABLET 2 po today, then 1 po q days 2-5 20 20/04/28 AZITHROMYCIN 64917438759 No Longer Active Tesfaye Sherman MD Active MECLIZINE HCL 25 MG ORAL TABLET one tab po qday prn dizziness 20 17/09/06 MECLIZINE HCL 56324916020 No Longer Active Tesfaye Sherman MD Active PROAIR HFA 108 (90 BASE) MCG/ACT INHALATION AEROSOL SO LUTION 1 puff every 6 hours as needed ALBUTEROL SULFATE 30244784341 No Long er Active Tesfaye Sherman MD Active PREDNISONE 20 MG ORAL TABLET 1 tab twice daily for 3 d ay, then one daily for three days PREDNISONE 42239433242 No Longer Active Tesfaye Sherman MD Active MECLIZINE HCL 25 MG ORAL TABLET one 4 times a day as needed for dizziness MECLIZINE HCL 92338833884 Active Tesfaye Sherman MD Active AMOXICILLIN 500 MG ORAL CAPSULE 1 cap by mouth three times a day AMOXICILLIN 95516009012 No Longer Active Laurence Raduyen Acti ve DIFLUCAN 100 MG ORAL TABLET 1 tablet by mouth daily 20 19/08/26 FLUCONAZOLE 70288196630 No Longer Active Tesfaye Sherman MD Acti ve BACTRIM DS 800-160 MG ORAL TABLET 1 tab by mouth twice daily 201 05/10/28 TRIMETHOPRIM-SULFAMETHOXAZOLE 54272096207 No Longer Active Fer Dominguez Active FOSAMAX 70 MG ORAL TABLET 1 po qweek. Take 30min prio r to first food/drink. Avoid lying down x 1 hour. ALENDRONATE SODIUM 49213506 144 No Longer Active Laurence Dominguez Active CYMBALTA 60 MG ORAL CAPSULE DELAYED RELEASE PARTICLES Take 1 tablet by mouth daily DULOXETINE HCL 97299148176 No Longer Active Edith Burch MD Active CYMBALTA 30 MG ORAL CAPSULE DELAYED RELEASE PARTICLES 1 cap by mouth daily with 60mg DULOXETINE HCL 00911468439 No Longer Active Jordan Burch MD Active FISH OIL 1000 MG ORAL CAPSULE DELAYED RELEASE 1 pill b y mouth daily for cholesterol OMEGA-3 FATTY ACIDS 77609739670 Active Cee Jaffe LPN Active DIFLUCAN 100 MG ORAL TABLET 1 tablet by mouth daily 20 19/03/05 FLUCONAZOLE 62481903637 No Longer Active Tesfaye Sherman MD Acti ve BACTRIM DS 800-160 MG ORAL TABLET 1 tab by mouth twice daily 201 05/06/28 TRIMETHOPRIM-SULFAMETHOXAZOLE 73317981547 No Longer Active Umer Sherman MD Active BACTRIM DS 800-160 MG ORAL TABLET 1 tab by mouth twice daily 201 05/04/15 TRIMETHOPRIM-SULFAMETHOXAZOLE 42217931475 No Longer Active Umer Sherman MD Active DIFLUCAN 150 MG ORAL TABLET 1 tablet by mouth daily 20 18/09/20 FLUCONAZOLE 94604286899 No Longer Active Tesfaye Sherman MD Acti ve BACTRIM DS 800-160 MG ORAL TABLET 1 tab by mouth twice daily 201 04/13/17 TRIMETHOPRIM-SULFAMETHOXAZOLE 14906807200 No Longer Active Umer Sherman MD Active ROPINIROLE HCL 0.25 MG ORAL TABLET 1 TAB PO Q HS ROPINIROLE HCL 52184385287 Active Tesfaye Sherman MD Active CEFTIN 250 MG ORAL TABLET 1 tablet twice daily x 7 days CEFUROXIME AXETIL 52841053084 No Longer Active Tesfaye Sherman MD Active DIFLUCAN 100 MG ORAL TABLET 1 tablet by mouth every other da y for 2 doses FLUCONAZOLE 53076376688 No Longer Active Tesfaye barron MD Active DIFLUCAN 100 MG ORAL TABLET 1 tablet by mouth daily X 3 DAYS 201 04/09/01 FLUCONAZOLE 90773867774 No Longer Active Rj Lyons tidragan MIRTAZAPINE 15 MG ORAL TABLET 1/2 tab by mouth at bedtime. 03/13 MIRTAZAPINE 18349057413 No Longer Active Tesfaye Sherman MD Active BACTRIM DS 800-160 MG ORAL TABLET 1 tab by mouth twice daily 201 04/09/01 TRIMETHOPRIM-SULFAMETHOXAZOLE 66873341638 No Longer Active Umer Sherman MD Active PRAMIPEXOLE DIHYDROCHLORIDE 0.125 MG ORAL TABLET take 1 tablet po qhs for restless leg syndrome. PRAMIPEXOLE DIHYDROCHLORI DE 07930507390 No Longer Active Tesfaye Sherman MD Active MAGNESIUM 400 MG ORAL TABLET 1 tab po daily FELIX FAGAN 80977329472 Active Chelsea Cardenas APRN Active CETIRIZINE HCL 5 MG ORAL TABLET Take 1 tablet by mouth daily CETIRIZINE HCL 33483089677 No Longer Active Chelsea Cardenas APRN Activ e TRIMETHOPRIM 100 MG ORAL TABLET 1/2 qd TRIM ETHOPRIM 11959995739 No Longer Active Chelsea Cardenas APRN Active BACTRIM DS 800-160 MG ORAL TABLET 1 tab by mouth twice daily 201 04/04/11 TRIMETHOPRIM-SULFAMETHOXAZOLE 96257664183 No Longer Active Umer Sherman MD Active BACTRIM DS 800-160 MG ORAL TABLET 1 tab by mouth twice daily X 10 DAYS TRIMETHOPRIM-SULFAMETHOXAZOLE 43302147872 No Longer Active Tesfaye Sherman MD Active AMOXICILLIN 500 MG ORAL CAPSULE 1 cap by mouth three times a day AMOXICILLIN 74258487043 No Longer Active Adriana Arredondo, [facility] A ctive B-12 1000 MCG ORAL LOZENGE 1 tab po daily CYANO COBALAMIN 50402524855 Active Tesfaye Sherman MD Active VITAMIN D3 2000 UNIT ORAL TABLET 1 daily, for vitamin D deficien cy CHOLECALCIFEROL 46218799684 No Longer Active Tesfaye Sherman MD Active TIZANIDINE HCL 2 MG ORAL TABLET take 1-2 tablet by [facility] every day at bedtime at 9pm PRN TIZANIDINE HCL 78945308344 Active Tesfaye hewitt MD Active ZITHROMAX 250 MG ORAL TABLET 2 po today, then 1 po q days 2-5 20 15/02/10 AZITHROMYCIN 93608073385 No Longer Active Tesfaye Sherman MD Active BACTRIM DS 800-160 MG ORAL TABLET 1 tab by mouth twice daily 201 03/03/23 TRIMETHOPRIM-SULFAMETHOXAZOLE 14727598929 No Longer Active Umer Sherman MD Active [facility] NIACIN FLUSH FREE 400-100 MG ORAL CAPSULE 1 daily NIACIN-INOSITOL 60830461978 Active Kayla Cooper MD Activ e DIFLUCAN 150 MG ORAL TABLET 1 qd FLUCONAZOL E 15862951348 No Longer Active Kayla Cooper MD Active FLUTICASONE PROPIONATE 50 MCG/ACT NASAL SUSPENSION 1 spray each nostril twice daily FLUTICASONE PROPIONATE 64250418827 Active D patricia Sherman MD Active LOVASTATIN 20 MG ORAL TABLET Take 1 tablet by mouth daily LOVASTATIN 55480633748 No Longer Active Tesfaye Sherman MD Acti ve MELOXICAM 7.5 MG ORAL TABLET 1 tablet by mouth daily 2 MELOXICAM 61653313970 No Longer Active Tesfaye Sherman MD Acti ve GABAPENTIN 300 MG ORAL CAPSULE Take two tablets by mouth every e vening GABAPENTIN 11207277058 No Longer Active Edith Burch MD A ctive BACLOFEN 10 MG ORAL TABLET Take one tablet by mouth three times a d ay BACLOFEN 73341955246 Active Kayla Cooper MD Active GABAPENTIN 300 MG ORAL CAPSULE Take two tablets by mouth every e vening GABAPENTIN 300 MG ORAL CAPSULE 091138 GABAPENTIN I nactive MELOXICAM 7.5 MG ORAL TABLET 1 tablet by mouth daily 2 MELOXICAM 7.5 MG ORAL TABLET 078651 MELOXICAM Inactive LOVASTATIN 20 MG ORAL TABLET Take 1 tablet by mouth daily LOVASTATIN 20 MG ORAL TABLET 451975 LOVASTATIN Inactive DIFLUCAN 150 MG ORAL TABLET 1 qd DIFLUCAN 150 MG ORAL TABLET 025141 FLUCONAZOLE Inactive VITAMIN D3 2000 UNIT ORAL TABLET 1 daily, for vitamin D deficien cy VITAMIN D3 2000 UNIT ORAL TABLET CHOLECALCIFEROL Inactive AMOXICILLIN 500 MG ORAL CAPSULE 1 cap by mouth three times a day AMOXICILLIN 500 MG ORAL CAPSULE 406373 AMOXICILLIN Inactive BACTRIM DS 800-160 MG ORAL TABLET 1 tab by mouth twice daily X 10 DAYS BACTRIM DS 800-160 MG ORAL TABLET 054828 TRIMETHOPRIM-SULFAMETHOXAZOLE Inactive TRIMETHOPRIM 100 MG ORAL TABLET 1/2 qd 2016/05/1 7 TRIMETHOPRIM 100 MG ORAL TABLET 868366 TRIMETHOPRIM Inactive CETIRIZINE HCL 5 MG ORAL TABLET Take 1 tablet by mouth daily CETIRIZINE HCL 5 MG ORAL TABLET 2599848 CETIRIZINE HCL Inactive PRAMIPEXOLE DIHYDROCHLORIDE 0.125 MG ORAL TABLET take 1 tablet po qhs for restless leg syndrome. PRAMIPEXOLE DIHYD ROCHLORIDE 0.125 MG ORAL TABLET 566673 PRAMIPEXOLE DIHYDROCHLORIDE Inactive MIRTAZAPINE 15 MG ORAL TABLET 1/2 tab by mouth at bedtime. 03/13 MIRTAZAPINE 15 MG ORAL TABLET 729106 MIRTAZAPINE In active DIFLUCAN 100 MG ORAL TABLET 1 tablet by mouth daily X 3 DAYS 201 04/09/01 DIFLUCAN 100 MG ORAL TABLET 437538 FLUCONAZOLE Inac tive DIFLUCAN 100 MG ORAL TABLET 1 tablet by mouth every other da y for 2 doses DIFLUCAN 100 MG ORAL TABLET 304549 FLUCONAZOLE Inactive CEFTIN 250 MG ORAL TABLET 1 tablet twice daily x 7 days CEFTIN 250 MG ORAL TABLET CEFUROXIME AXETIL Inactive CYMBALTA 30 MG ORAL CAPSULE DELAYED RELEASE PARTICLES 1 cap by mouth daily with 60mg CYMBALTA 30 MG ORAL CAPSULE DELAYED RELEASE PARTICLES 889305 DULOXETINE HCL Inactive CYMBALTA 60 MG ORAL CAPSULE DELAYED RELEASE PARTICLES Take 1 tablet by mouth daily CYMBALTA 60 MG ORAL CAPSULE DELAYED RELEA SE PARTICLES 582514 DULOXETINE HCL Inactive FOSAMAX 70 MG ORAL TABLET 1 po qweek. Take 30min prio r to first food/drink. Avoid lying down x 1 hour. FOSAMAX 70 MG ORAL TA BLET 464912 ALENDRONATE SODIUM Inactive DIFLUCAN 100 MG ORAL TABLET 1 tablet by mouth daily 19/08/26 DIFLUCAN 100 MG ORAL TABLET 184987 FLUCONAZOLE Inactive PREDNISONE 20 MG ORAL TABLET 1 tab twice daily for 3 d ay, then one daily for three days PREDNISONE 20 MG ORAL TABLET 142459 PREDNIS ONE Inactive PROAIR HFA 108 (90 BASE) MCG/ACT INHALATION AEROSOL SO LUTION 1 puff every 6 hours as needed PROAIR HFA 108 (90 B ASE) MCG/ACT INHALATION AEROSOL SOLUTION ALBUTEROL SULFATE Inactive MECLIZINE HCL 25 MG ORAL TABLET one tab po qday prn dizziness 20 17/09/06 MECLIZINE HCL 25 MG ORAL TABLET 349504 MECLIZINE HCL Inactive PREDNISONE 20 MG ORAL TABLET 1 tablet by mouth twice d aily for 3 days, then 1 tablet daily for 3 days PREDNISONE 20 MG ORAL TA BLET 289281 PREDNISONE Inactive DIFLUCAN 100 MG ORAL TABLET 1 tablet by mouth daily 20 20/06/06 DIFLUCAN 100 MG ORAL TABLET 19760711 FLUCONAZOLE Inactive REPHRESH PRO-B ORAL CAPSULE 1 tablet daily REPHRESH PRO-B ORAL CAPSULE LACTOBACILLUS Inactive RED YEAST RICE 600 MG ORAL CAPSULE 1 pill by mouth daily RED YEAST RICE 600 MG ORAL CAPSULE 968586 RED YEAST RICE EXTRACT In active SUDAFED [...] 20 19/02/09 DIFLUCAN 100 MG ORAL TABLET 680470 FLUCONAZOLE Inactive VENLAFAXINE HCL 75 MG ORAL TABLET 1 am 1/2 at noon 201 07/07/09 VENLAFAXINE HCL 75 MG ORAL TABLET 950111 VENLAFAXINE HCL Inacti ve GABAPENTIN 300 MG ORAL CAPSULE 1 po daily GABAPENTIN 300 MG ORAL CAPSULE 684117 GABAPENTIN Inactive BACTRIM DS 800-160 MG ORAL TABLET 1 tab by mouth twice daily 201 03/03/23 BACTRIM DS 800-160 MG ORAL TABLET 925264 TRIMETHOPRIM-SULFAMETHOXAZOLE Inactive ZITHROMAX 250 MG ORAL TABLET 2 po today, then 1 po q days 2-5 20 15/02/10 ZITHROMAX 250 MG ORAL TABLET 908658 AZITHROMYCIN Mayela ctive BACTRIM DS 800-160 MG [...] 05/06/28 BACTRIM DS 800-160 MG ORAL TABLET 187208 TRIMETHOPRIM-SULFAMETHOXAZOLE Inactive DIFLUCAN 100 MG ORAL TABLET 1 tablet by mouth daily 20 19/03/05 DIFLUCAN 100 MG ORAL TABLET 140034 FLUCONAZOLE Inactive BACTRIM DS 800-160 MG ORAL TABLET 1 tab by mouth twice daily 201 05/10/28 BACTRIM DS 800-160 MG ORAL TABLET 888728 TRIMETHOPRIM-SULFAMETHOXAZOLE Inactive AMOXICILLIN 500 MG ORAL CAPSULE 1 cap by mouth three times a day AMOXICILLIN 500 MG ORAL CAPSULE 230916 AMOXICILLIN Inactive ZITHROMAX 250 MG ORAL TABLET 2 po today, then 1 po q days 2-5 20 20/04/28 ZITHROMAX 250 MG ORAL TABLET 529900 AZITHROMYCIN Mayela ctive DIFLUCAN 100 MG ORAL TABLET 1 tablet by mouth daily 20 20/05/01 DIFLUCAN 100 MG ORAL TABLET 19760711 FLUCONAZOLE Inactive BACTRIM DS 800-160 MG ORAL TABLET 1 tab by mouth twice daily 201 06/09/02 BACTRIM DS 800-160 MG ORAL TABLET 551933 TRIMETHOPRIM-SULFAMETHOXAZOLE Inactive HYDROCHLOROTHIAZIDE 12.5 MG ORAL CAPSULE 1 pill by mough daily 2 HYDROCHLOROTHIAZIDE 12.5 MG ORAL CAPSULE HYDROCH LOROTHIAZIDE Inactive Advance Directives Directive Description Start Date PERMISSION TO SHARE DISCUSSED WITH PATIENT -- NO DECISION MADE DURABLE POWER OF INFORMATION TECHNOLOGY ADVISOR FOR HEALTHCARE DISCUSED WITH PATIENT -- FULL [...] weight E&M 115 [lb_av] Weight Measure d blood pressure, diastolic 76 mm[Hg] BP lyon blood pressure, systolic 131 mm[Hg] BP sys height E&M 62 [in_us] Bdy height pulse rate E&M 71 /min Heart rate temperature E&M 98.6 [degF] Body temp erature weight E&M 116.5 [lb_av] Weight Measure d Diagnostic Results Date [...] dipstick Trace-lysed Negative sodium, serum 139 mmol/L 277-481 9749/11/07 carbon dioxide, venous blood 28.4 mmol/L 21.0-32 [...] 5.0-8.5 Encounters Code Encounter Date Provider Facility CPT-78706 [id number] Vst-Est Level IV 17:09:34 Wilmar Sherman MD [facility] CPT-40462 Level 3 Est. Patient 17:27:08 CDT León hernandez APRN [facility] CPT-63375 [id number] Vst-Est Level IV 14:00:[address] Tesfaye Sherman MD [facility] CPT-55020 [id number] Vst-Est Level IV 19:27:[address] Tesfaye Sherman MD [facility] CPT-59216 [id number] Vst-Est Level IV 10:41:41 C BRIDGET Sherman MD [facility] CPT-73959 [id number] Vst-Est Level III 09:40:56 CDT Tesfaye Sherman [facility] CPT-27766 Level 4 Est. Patient 22:18:12 CDT Tesfaye pearson MD [facility] CPT-72709 Level 4 Est. Patient 14:44:33 ELECTRICIAN'S ASSISTANT Tesfaye pearson MD [facility] CPT-76065 Level 4 Est. Patient 13:55:29 ELECTRICIAN'S ASSISTANT Tesfaye pearson MD [facility] CPT-99855 Level 4 Est. Patient 17:07:34 ELECTRICIAN'S ASSISTANT Tesfaye pearson MD [facility] CPT-38969 Level 4 Est. Patient 13:56:54 CDT Tesfaye pearson MD [facility] CPT-06865 Level 4 Est. Patient 13:24:25 CDT Chelsea sanz APRN [facility] CPT-02631 Level 4 Est. Patient 09:14:56 CDT Tesfaye pearson MD [facility] CPT-66962 Level 4 Est. Patient 18:40:25 ELECTRICIAN'S ASSISTANT Tesfaye pearson MD [facility] CPT-37201 Level 4 Est. Patient 18:13:07 ELECTRICIAN'S ASSISTANT Tesfaye pearson MD [facility] CPT-34569 Level 3 Est. Patient 10:46:32 CDT Rj cotto DO [facility] CPT-61807 Level 4 Est. Patient 20:19:25 CDT Tesfaye pearson MD [facility] CPT-79930 Level 3 Est. Patient 09:07:31 CDT Tesfaye pearson MD [facility]-91787 Level 4 Est. Patient 13:12:56 CDT Tesfaye pearson MD [facility]-04389 Level 4 Est. Patient 21:24:55 ELECTRICIAN'S ASSISTANT Tesfaye pearson MD [facility]-94102 Level 3 Est. Patient 13:45:04 ELECTRICIAN'S ASSISTANT Tesfaye pearson MD [facility] CPT-42102 Level 4 Est. Patient 13:50:45 CDT Tesfaye pearson MD [facility] CPT-83732 Level 3 Est. Patient 10:16:10 CDT Tesfaye pearson MD [facility] CPT-75940 Level 3 Est. Patient 16:36:07 ELECTRICIAN'S ASSISTANT Kayla jameson MD [facility] CPT-29757 Level 4 Est. Patient 16:00:14 ELECTRICIAN'S ASSISTANT Tesfaye pearson MD [facility]-31279 Level 4 Est. Patient 11:02:24 ELECTRICIAN'S ASSISTANT Tesfaye pearson MD [facility] CPT-05105 Level 3 Est. Patient 20:21:43 ELECTRICIAN'S ASSISTANT Kayla jameson MD [facility] CPT-74783 Level 3 Est. Patient 13:27:28 ELECTRICIAN'S ASSISTANT Kayla jameson MD [facility] CPT-92276 Level 4 Est. Patient 15:57:17 ELECTRICIAN'S ASSISTANT Tesfaye pearson MD [facility] CPT-19212 Level 3 New Patient 13:25:47 CDT Tesfaye kidd MD [facility] CPT-16670 Level 3 New Patient 17:22:21 CDT Kayla angel MD [facility] Procedures Code Procedure Name Date Entry Date Standard Desc ription [facility]-G0439 Subsequent Annual Wellness Exam 22:18:11 CDT CPT-07752 Bone Density - XRAY USE ONLY 11:43:58 CDT 2 CPT-48497 Bone Density - XRAY USE ONLY 10:05:16 CDT 2 CPT-69164 Prv Med New Pt 40-64 yrs 18:19:25 CDT 2016 CPT-03831 Foot, right, comp min 3V - XRAY USE ONLY 10:38:34 CDT CPT-G0439 Subsequent Annual Wellness Exam 13:55:04 CDT CPT-G0438 Initial Annual Wellness Exam 11:23:17 CD T CPT-J2930 Solu Medrol 125 mg (Methyl Prednisolone Sodium Succinate) 17:29:12 ELECTRICIAN'S ASSISTANT CPT-12411 Abx/Therapy Injection 17:29:11 ELECTRICIAN'S ASSISTANT CPT-J2930 Solu Medrol 125 mg (Methyl Prednisolone Sodium Succinate) 12:34:38 ELECTRICIAN'S ASSISTANT CPT-J3420 Vitamin B12 1000mcg (Cyanocobalamin) 09:12:55 CDT CPT-J3420 Vitamin B12 1000mcg (Cyanocobalamin) 16:28:06 ELECTRICIAN'S ASSISTANT CPT-64525 Venipuncture Draw Fee 08:39:53 CDT CPT-J3420 Vitamin B12 1000mcg (Cyanocobalamin) 08:46:22 CDT CPT-21206 Abx/Therapy Injection 08:46:22 CDT CPT-J3420 Vitamin B12 1000mcg (Cyanocobalamin) 08:41:26 CDT CPT-92359 Abx/Therapy Injection 08:41:26 CDT CPT-J3420 Vitamin B12 1000mcg (Cyanocobalamin) 08:57:15 CDT CPT-65808 Abx/Therapy Injection 08:57:15 CDT CPT-J3420 Vitamin B12 1000mcg (Cyanocobalamin) 10:59:03 CDT CPT-57522 Abx/Therapy Injection 10:59:03 CDT CPT-J3420 Vitamin B12 1000mcg (Cyanocobalamin) 15:05:39 CDT CPT-91342 Abx/Therapy Injection 15:05:39 CDT CPT-J3420 Vitamin B12 1000mcg (Cyanocobalamin) 13:50:45 CDT CPT-J3420 Vitamin B12 1000mcg (Cyanocobalamin) 08:48:55 CDT CPT-21341 Abx/Therapy Injection 08:48:55 CDT CPT-J3420 Vitamin B12 1000mcg (Cyanocobalamin) 09:14:54 CDT CPT-13723 Abx/Therapy Injection 09:14:54 CDT CPT-J3420 Vitamin B12 1000mcg (Cyanocobalamin) 09:06:06 CDT CPT-87535 Abx/Therapy Injection 09:06:06 CDT CPT-J3420 Vitamin B12 1000mcg (Cyanocobalamin) 09:49:14 CDT CPT-68672 Abx/Therapy Injection 09:49:14 CDT CPT-J3420 Vitamin B12 1000mcg (Cyanocobalamin) 09:10:30 ELECTRICIAN'S ASSISTANT CPT-43408 Abx/Therapy Injection 09:10:30 ELECTRICIAN'S ASSISTANT CPT-J3420 Vitamin B12 1000mcg (Cyanocobalamin) 09:11:07 ELECTRICIAN'S ASSISTANT CPT-07160 Abx/Therapy Injection 09:11:07 ELECTRICIAN'S ASSISTANT CPT-J3420 Vitamin B12 1000mcg (Cyanocobalamin) 09:57:03 ELECTRICIAN'S ASSISTANT CPT-85114 Abx/Therapy Injection 09:57:03 ELECTRICIAN'S ASSISTANT CPT-J3420 Vitamin B12 1000mcg (Cyanocobalamin) 09:23:21 ELECTRICIAN'S ASSISTANT CPT-81357 Abx/Therapy Injection 09:23:21 ELECTRICIAN'S ASSISTANT CPT-11961 Urine Dip (Floor Use Only) 20:21:44 ELECTRICIAN'S ASSISTANT 201 02/12/11 CPT-46089 UA Dip Auto (Floor Use Only) 10:04:39 ELECTRICIAN'S ASSISTANT 2 CPT-33624 Urine Dip (Floor Use Only) 13:27:28 ELECTRICIAN'S ASSISTANT 201 02/12/01 CPT-07893 Bladder Scan 13:27:28 ELECTRICIAN'S ASSISTANT CPT-14743 Abd single AP View 14:30:51 ELECTRICIAN'S ASSISTANT CPT-OV Office Visit 10:15:43 CDT CPT-23856 Urine Dip (Floor Use Only) 17:22:21 CDT 201 02/09/02 CPT-54753 Bladder Scan 17:22:21 CDT
--- OUTSIDE RECORDS SUMMARY | 2020-05-05 11:32 | XMS REPORT | Clinical Summary ---
Author Author Talon, Jeri Wood Organization [employer] Address Unknown Phone Unavailable Allergies, Adverse Reactions, [...] with female genital organs Fatigue 780.79 Active eTsfaye Sherman MD Other malaise and fatigue Sinusitis [...] Personal history of fall V15.88 Active Tesfaye Shreman MD Personal history of fall Rheumatoid arthritis, chronic 714.0 Active 04/05 Tesfaye Sherman MD Rheumatoid arthritis Vertigo 780.4 Resolved Tesfaye Sherman MD Dizziness and giddiness Body Mass Index 20.0-20.9 Adult Resolved 2018 Tesfaye Sherman MD Body Mass Index between 19-24, adult Dysuria 788.1 Resolved Tesfaye Sherman MD Dysuria 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 V58.6 Active Tesfaye Sherman MD Long-term (current) drug use Yeast infection 112.9 Inactive Tesfaye Sherman MD Candidiasis of unspecified site Upper respiratory infection 465.9 Inactive Tesfaye Sherman MD Acute upper respiratory infections of un specified site Lower extremity edema, bilateral 782.3 Active 201 07/07/09 León Kodi MANAGEMENT INSTRUCTOR Edema Peripheral neuropathy 356.9 Active Tesfaye lamb [...] ORAL TABLET 1 by mouth daily FENOFIBRATE 57853047565 Active Laurence Dominguez Active AMITRIPTYLINE HCL 10 MG ORAL TABLET 1 tablet nightly by mout h for neuropathy AMITRIPTYLINE HCL 54034462450 Active Tesfaye Sherman MD Active GABAPENTIN 300 MG ORAL CAPSULE 1 po daily GABAP ENTIN 69486330143 No Longer Active Tesfaye Sherman MD Active HYDROCHLOROTHIAZIDE 12.5 MG ORAL CAPSULE 1 pill by mough daily 2 HYDROCHLOROTHIAZIDE 87720425088 No Longer Active León Mariee APRN Active VENLAFAXINE HCL 75 MG ORAL TABLET 1 am 1/ at noon 201 07/07/09 VENLAFAXINE HCL 52252541415 No Longer Active León Mariee APRN Act trent DIFLUCAN 100 MG ORAL TABLET 1 tablet by mouth daily 20 19/02/09 FLUCONAZOLE 06240552515 No Longer Active León Kodi MANAGEMENT INSTRUCTOR Active DIFLUCAN 100 MG ORAL TABLET 1 tablet by mouth daily 20 19/02/09 FLUCONAZOLE 33798744345 No Longer Active Leónkash Mariee APRN Active OXYCODONE-ACETAMINOPHEN 5-325 MG ORAL TABLET Take one tablet by mouth every 6 hours 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 Use sparingly OXYCODONE-ACETAMINOPHEN 24523047432 Active Tesfaye villar MD Active CLONAZEPAM 0.5 MG ORAL TABLET Take 1/2 qam, and 1/2 qpm CLONAZEPAM 68146528813 Active Tesfaye Sherman MD Active PRELIEF 340 (65-50) MG (CA-P) ORAL TABLET CALCIUM GLYCEROPHOSPHATE 77125286868 No Longer Active Tesfaye Sherman MD Active SUDAFED 24 HOUR 240 MG ORAL TABLET EXTENDED RELEASE 24 HOUR 1 tab po daily PSEUDOEPHEDRINE HCL 31742944457 No Longer Active Raul Sherman MD Active RED YEAST RICE 600 MG ORAL CAPSULE 1 pill by mouth daily RED YEAST RICE EXTRACT 30068288476 No Longer Active Tesfaye Sherman MD Active REPHRESH PRO-B ORAL CAPSULE 1 tablet daily LACT OBACILLUS 33759904933 No Longer Active Tesfaye Sherman MD Active SUDAFED 12 HOUR 120 MG ORAL TABLET EXTENDED RELEASE 12 HOUR 1 pill twice daily if needed for congestion PSEUDOEPHEDRINE HCL 07306192572 A ctive Tesfaye Sherman MD Active ABILIFY 2 MG ORAL TABLET 1 by mouth daily. MARIA ELENA PIPRAZOLE 21752212800 Active Tesfaye Sherman MD Active CYMBALTA 60 MG ORAL CAPSULE DELAYED RELEASE PARTICLES 1 cap by mouth daily for pain DULOXETINE HCL 68686917165 Active Tesfaye Owusu Active DIFLUCAN 100 MG ORAL TABLET 1 tablet by mouth daily 20 20/06/06 FLUCONAZOLE 33966251107 No Longer Active Tesfaye Sherman MD Acti ve PREDNISONE 20 MG ORAL TABLET 1 tablet by mouth twice d aily for 3 days, then 1 tablet daily for 3 days PREDNISONE 89177858837 No L onger Active Tesfaye Sherman MD Active BACTRIM DS 800-160 MG ORAL TABLET 1 tab by mouth twice daily 201 06/09/02 TRIMETHOPRIM-SULFAMETHOXAZOLE 22819381434 No Longer Active Fer Dominguez Active DIFLUCAN 100 MG ORAL TABLET 1 tablet by mouth daily 20 20/05/01 FLUCONAZOLE 27436200814 No Longer Active Tesfaye Sherman MD Acti ve ZITHROMAX 250 MG ORAL TABLET 2 po today, then 1 po q days 2-5 20 20/04/28 AZITHROMYCIN 66395124660 No Longer Active Tesfaye Sherman MD Active MECLIZINE HCL 25 MG ORAL TABLET one tab po qday prn dizziness 20 17/09/06 MECLIZINE HCL 99885210405 No Longer Active Tesfaye Sherman MD Active PROAIR HFA 108 (90 BASE) MCG/ACT INHALATION AEROSOL SO LUTION 1 puff every 6 hours as needed ALBUTEROL SULFATE 80098526689 No Long er Active Tesfaye Sherman MD Active PREDNISONE 20 MG ORAL TABLET 1 tab twice daily for 3 d ay, then one daily for three days PREDNISONE 16299797901 No Longer Active Tesfaye Sherman MD Active MECLIZINE HCL 25 MG ORAL TABLET one 4 times a day as needed for dizziness MECLIZINE HCL 18492936509 Active Tesfaye Sherman MD Active AMOXICILLIN 500 MG ORAL CAPSULE 1 cap by mouth three times a day AMOXICILLIN 00755078149 No Longer Active Laurence Raduyen Acti ve DIFLUCAN 100 MG ORAL TABLET 1 tablet by mouth daily 20 19/08/26 FLUCONAZOLE 80628500051 No Longer Active Tesfaye Sherman MD Acti ve BACTRIM DS 800-160 MG ORAL TABLET 1 tab by mouth twice daily 201 05/10/28 TRIMETHOPRIM-SULFAMETHOXAZOLE 90625562039 No Longer Active Fer Dominguez Active FOSAMAX 70 MG ORAL TABLET 1 po qweek. Take 30min prio r to first food/drink. Avoid lying down x 1 hour. ALENDRONATE SODIUM 08582838 144 No Longer Active Laurence Dominguez Active CYMBALTA 60 MG ORAL CAPSULE DELAYED RELEASE PARTICLES Take 1 tablet by mouth daily DULOXETINE HCL 09592234381 No Longer Active Edith Burch MD Active CYMBALTA 30 MG ORAL CAPSULE DELAYED RELEASE PARTICLES 1 cap by mouth daily with 60mg DULOXETINE HCL 61296285844 No Longer Active Jordan Burch MD Active FISH OIL 1000 MG ORAL CAPSULE DELAYED RELEASE 1 pill b y mouth daily for cholesterol OMEGA-3 FATTY ACIDS 04894983588 Active Cee Jaffe LPN Active DIFLUCAN 100 MG ORAL TABLET 1 tablet by mouth daily 20 19/03/05 FLUCONAZOLE 02153124702 No Longer Active Tesfaye Sherman MD Acti ve BACTRIM DS 800-160 MG ORAL TABLET 1 tab by mouth twice daily 201 05/06/28 TRIMETHOPRIM-SULFAMETHOXAZOLE 62591848023 No Longer Active Umer Sherman MD Active BACTRIM DS 800-160 MG ORAL TABLET 1 tab by mouth twice daily 201 05/04/15 TRIMETHOPRIM-SULFAMETHOXAZOLE 28729784860 No Longer Active Umer Sherman MD Active DIFLUCAN 150 MG ORAL TABLET 1 tablet by mouth daily 20 18/09/20 FLUCONAZOLE 67553698000 No Longer Active Tesfaye Sherman MD Acti ve BACTRIM DS 800-160 MG ORAL TABLET 1 tab by mouth twice daily 201 04/13/17 TRIMETHOPRIM-SULFAMETHOXAZOLE 66739973150 No Longer Active Umer Sherman MD Active ROPINIROLE HCL 0.25 MG ORAL TABLET 1 TAB PO Q HS ROPINIROLE HCL 15859101572 Active Tesfaye Sherman MD Active CEFTIN 250 MG ORAL TABLET 1 tablet twice daily x 7 days CEFUROXIME AXETIL 48276582667 No Longer Active Tesfaye Sherman MD Active DIFLUCAN 100 MG ORAL TABLET 1 tablet by mouth every other da y for 2 doses FLUCONAZOLE 46801208183 No Longer Active Tesfaye barron MD Active DIFLUCAN 100 MG ORAL TABLET 1 tablet by mouth daily X 3 DAYS 201 04/09/01 FLUCONAZOLE 79652150425 No Longer Active Rj Lyons tidragan MIRTAZAPINE 15 MG ORAL TABLET 1/2 tab by mouth at bedtime. 03/13 MIRTAZAPINE 75314841614 No Longer Active Tesfaye Sherman MD Active BACTRIM DS 800-160 MG ORAL TABLET 1 tab by mouth twice daily 201 04/09/01 TRIMETHOPRIM-SULFAMETHOXAZOLE 26888578143 No Longer Active Umer Sherman MD Active PRAMIPEXOLE DIHYDROCHLORIDE 0.125 MG ORAL TABLET take 1 tablet po qhs for restless leg syndrome. PRAMIPEXOLE DIHYDROCHLORI DE 82914395790 No Longer Active Tesfaye Sherman MD Active MAGNESIUM 400 MG ORAL TABLET 1 tab po daily FELIX FAGAN 71458159728 Active Chelsea Cardenas APRN Active CETIRIZINE HCL 5 MG ORAL TABLET Take 1 tablet by mouth daily CETIRIZINE HCL 64443207307 No Longer Active Chelsea Cardenas APRN Activ e TRIMETHOPRIM 100 MG ORAL TABLET 1/2 qd TRIM ETHOPRIM 52297332467 No Longer Active Chelsea Cardenas APRN Active BACTRIM DS 800-160 MG ORAL TABLET 1 tab by mouth twice daily 201 04/04/11 TRIMETHOPRIM-SULFAMETHOXAZOLE 53944286696 No Longer Active Umer Sherman MD Active BACTRIM DS 800-160 MG ORAL TABLET 1 tab by mouth twice daily X 10 DAYS TRIMETHOPRIM-SULFAMETHOXAZOLE 81373205427 No Longer Active Tesfaye Sherman MD Active AMOXICILLIN 500 MG ORAL CAPSULE 1 cap by mouth three times a day AMOXICILLIN 50689478289 No Longer Active Adriana Arredondo, [facility] A ctive B-12 1000 MCG ORAL LOZENGE 1 tab po daily CYANO COBALAMIN 76074393786 Active Tesfaye Sherman MD Active VITAMIN D3 2000 UNIT ORAL TABLET 1 daily, for vitamin D deficien cy CHOLECALCIFEROL 62549522039 No Longer Active Tesfaye Sherman MD Active TIZANIDINE HCL 2 MG ORAL TABLET take 1-2 tablet by [facility] every day at bedtime at 9pm PRN TIZANIDINE HCL 42836289116 Active Tesfaye hewitt MD Active ZITHROMAX 250 MG ORAL TABLET 2 po today, then 1 po q days 2-5 20 15/02/10 AZITHROMYCIN 28869250546 No Longer Active Tesfaye Sherman MD Active BACTRIM DS 800-160 MG ORAL TABLET 1 tab by mouth twice daily 201 03/03/23 TRIMETHOPRIM-SULFAMETHOXAZOLE 87773079308 No Longer Active Umer Sherman MD Active [facility] NIACIN FLUSH FREE 400-100 MG ORAL CAPSULE 1 daily NIACIN-INOSITOL 47489140829 Active Kayla Cooper MD Activ e DIFLUCAN 150 MG ORAL TABLET 1 qd FLUCONAZOL E 40222582999 No Longer Active Kayla Cooper MD Active FLUTICASONE PROPIONATE 50 MCG/ACT NASAL SUSPENSION 1 spray each nostril twice daily FLUTICASONE PROPIONATE 08650422690 Active D patricia Sherman MD Active LOVASTATIN 20 MG ORAL TABLET Take 1 tablet by mouth daily LOVASTATIN 12811113256 No Longer Active Tesfaye Sherman MD Acti ve MELOXICAM 7.5 MG ORAL TABLET 1 tablet by mouth daily 2 MELOXICAM 29874890939 No Longer Active Tesfaye Sherman MD Acti ve GABAPENTIN 300 MG ORAL CAPSULE Take two tablets by mouth every e vening GABAPENTIN 15198813590 No Longer Active Edith Burch MD A ctive BACLOFEN 10 MG ORAL TABLET Take one tablet by mouth three times a d ay BACLOFEN 44739536131 Active Kayla Cooper MD Active GABAPENTIN 300 MG ORAL CAPSULE Take two tablets by mouth every e vening GABAPENTIN 300 MG ORAL CAPSULE 669480 GABAPENTIN I nactive MELOXICAM 7.5 MG ORAL TABLET 1 tablet by mouth daily 2 MELOXICAM 7.5 MG ORAL TABLET 823909 MELOXICAM Inactive LOVASTATIN 20 MG ORAL TABLET Take 1 tablet by mouth daily LOVASTATIN 20 MG ORAL TABLET 087440 LOVASTATIN Inactive DIFLUCAN 150 MG ORAL TABLET 1 qd DIFLUCAN 150 MG ORAL TABLET 907954 FLUCONAZOLE Inactive VITAMIN D3 2000 UNIT ORAL TABLET 1 daily, for vitamin D deficien cy VITAMIN D3 2000 UNIT ORAL TABLET CHOLECALCIFEROL Inactive AMOXICILLIN 500 MG ORAL CAPSULE 1 cap by mouth three times a day AMOXICILLIN 500 MG ORAL CAPSULE 576229 AMOXICILLIN Inactive BACTRIM DS 800-160 MG ORAL TABLET 1 tab by mouth twice daily X 10 DAYS BACTRIM DS 800-160 MG ORAL TABLET 175946 TRIMETHOPRIM-SULFAMETHOXAZOLE Inactive TRIMETHOPRIM 100 MG ORAL TABLET 1/2 qd 2016/05/1 7 TRIMETHOPRIM 100 MG ORAL TABLET 708120 TRIMETHOPRIM Inactive CETIRIZINE HCL 5 MG ORAL TABLET Take 1 tablet by mouth daily CETIRIZINE HCL 5 MG ORAL TABLET 9381668 CETIRIZINE HCL Inactive PRAMIPEXOLE DIHYDROCHLORIDE 0.125 MG ORAL TABLET take 1 tablet po qhs for restless leg syndrome. PRAMIPEXOLE DIHYD ROCHLORIDE 0.125 MG ORAL TABLET 261519 PRAMIPEXOLE DIHYDROCHLORIDE Inactive MIRTAZAPINE 15 MG ORAL TABLET 1/2 tab by mouth at bedtime. 03/13 MIRTAZAPINE 15 MG ORAL TABLET 773185 MIRTAZAPINE In active DIFLUCAN 100 MG ORAL TABLET 1 tablet by mouth daily X 3 DAYS 201 04/09/01 DIFLUCAN 100 MG ORAL TABLET 077403 FLUCONAZOLE Inac tive DIFLUCAN 100 MG ORAL TABLET 1 tablet by mouth every other da y for 2 doses DIFLUCAN 100 MG ORAL TABLET 447201 FLUCONAZOLE Inactive CEFTIN 250 MG ORAL TABLET 1 tablet twice daily x 7 days CEFTIN 250 MG ORAL TABLET CEFUROXIME AXETIL Inactive CYMBALTA 30 MG ORAL CAPSULE DELAYED RELEASE PARTICLES 1 cap by mouth daily with 60mg CYMBALTA 30 MG ORAL CAPSULE DELAYED RELEASE PARTICLES 105145 DULOXETINE HCL Inactive CYMBALTA 60 MG ORAL CAPSULE DELAYED RELEASE PARTICLES Take 1 tablet by mouth daily CYMBALTA 60 MG ORAL CAPSULE DELAYED RELEA SE PARTICLES 566664 DULOXETINE HCL Inactive FOSAMAX 70 MG ORAL TABLET 1 po qweek. Take 30min prio r to first food/drink. Avoid lying down x 1 hour. FOSAMAX 70 MG ORAL TA BLET 773605 ALENDRONATE SODIUM Inactive DIFLUCAN 100 MG ORAL TABLET 1 tablet by mouth daily 19/08/26 DIFLUCAN 100 MG ORAL TABLET 917421 FLUCONAZOLE Inactive PREDNISONE 20 MG ORAL TABLET 1 tab twice daily for 3 d ay, then one daily for three days PREDNISONE 20 MG ORAL TABLET 338750 PREDNIS ONE Inactive PROAIR HFA 108 (90 BASE) MCG/ACT INHALATION AEROSOL SO LUTION 1 puff every 6 hours as needed PROAIR HFA 108 (90 B ASE) MCG/ACT INHALATION AEROSOL SOLUTION ALBUTEROL SULFATE Inactive MECLIZINE HCL 25 MG ORAL TABLET one tab po qday prn dizziness 20 17/09/06 MECLIZINE HCL 25 MG ORAL TABLET 750731 MECLIZINE HCL Inactive PREDNISONE 20 MG ORAL TABLET 1 tablet by mouth twice d aily for 3 days, then 1 tablet daily for 3 days PREDNISONE 20 MG ORAL TA BLET 831527 PREDNISONE Inactive DIFLUCAN 100 MG ORAL TABLET 1 tablet by mouth daily 20 20/06/06 DIFLUCAN 100 MG ORAL TABLET 19760711 FLUCONAZOLE Inactive REPHRESH PRO-B ORAL CAPSULE 1 tablet daily REPHRESH PRO-B ORAL CAPSULE LACTOBACILLUS Inactive RED YEAST RICE 600 MG ORAL CAPSULE 1 pill by mouth daily RED YEAST RICE 600 MG ORAL CAPSULE 643865 RED YEAST RICE EXTRACT In active SUDAFED [...] 20 19/02/09 DIFLUCAN 100 MG ORAL TABLET 474261 FLUCONAZOLE Inactive VENLAFAXINE HCL 75 MG ORAL TABLET 1 am 1/2 at noon 201 07/07/09 VENLAFAXINE HCL 75 MG ORAL TABLET 294620 VENLAFAXINE HCL Inacti ve GABAPENTIN 300 MG ORAL CAPSULE 1 po daily GABAPENTIN 300 MG ORAL CAPSULE 340551 GABAPENTIN Inactive BACTRIM DS 800-160 MG ORAL TABLET 1 tab by mouth twice daily 201 03/03/23 BACTRIM DS 800-160 MG ORAL TABLET 115682 TRIMETHOPRIM-SULFAMETHOXAZOLE Inactive ZITHROMAX 250 MG ORAL TABLET 2 po today, then 1 po q days 2-5 20 15/02/10 ZITHROMAX 250 MG ORAL TABLET 528545 AZITHROMYCIN Mayela ctive BACTRIM DS 800-160 MG [...] 05/06/28 BACTRIM DS 800-160 MG ORAL TABLET 646543 TRIMETHOPRIM-SULFAMETHOXAZOLE Inactive DIFLUCAN 100 MG ORAL TABLET 1 tablet by mouth daily 20 19/03/05 DIFLUCAN 100 MG ORAL TABLET 263625 FLUCONAZOLE Inactive BACTRIM DS 800-160 MG ORAL TABLET 1 tab by mouth twice daily 201 05/10/28 BACTRIM DS 800-160 MG ORAL TABLET 545215 TRIMETHOPRIM-SULFAMETHOXAZOLE Inactive AMOXICILLIN 500 MG ORAL CAPSULE 1 cap by mouth three times a day AMOXICILLIN 500 MG ORAL CAPSULE 375713 AMOXICILLIN Inactive ZITHROMAX 250 MG ORAL TABLET 2 po today, then 1 po q days 2-5 20 20/04/28 ZITHROMAX 250 MG ORAL TABLET 608490 AZITHROMYCIN [place] ctive DIFLUCAN 100 MG ORAL TABLET 1 tablet by mouth daily 20 20/05/01 DIFLUCAN 100 MG ORAL TABLET 19760711 FLUCONAZOLE Inactive BACTRIM DS 800-160 MG ORAL TABLET 1 tab by mouth twice daily 201 06/09/02 BACTRIM DS 800-160 MG ORAL TABLET 211217 TRIMETHOPRIM-SULFAMETHOXAZOLE Inactive HYDROCHLOROTHIAZIDE 12.5 MG ORAL CAPSULE 1 pill by mough daily 2 HYDROCHLOROTHIAZIDE 12.5 MG ORAL CAPSULE HYDROCH LOROTHIAZIDE Inactive Advance Directives Directive Description Start Date PERMISSION TO SHARE DISCUSSED WITH PATIENT -- NO DECISION MADE DURABLE POWER OF PATROL POLICE [employer]IEUT[employer] FOR HEALTHCARE DISCUSED WITH PATIENT -- [...] dipstick Trace-lysed Negative sodium, serum 139 mmol/L 840-972 2895/11/07 carbon dioxide, venous blood 28.4 mmol/L 21.0-32 [...] 5.0-8.5 Encounters Code Encounter Date Provider Facility CPT-94802 [id number] Vst-Est Level IV 17:09:34 Wilmar Sherman MD [facility] CPT-99104 Level 3 Est. Patient 17:27:08 CDT León hernandez APRN [facility] CPT-99055 [id number] Vst-Est Level IV 14:00:[address] Tesfaye Sherman MD [facility] CPT-41361 [id number] Vst-Est Level IV 19:27:[address] Tesfaye Sherman MD [facility] CPT-24954 [id number] Vst-Est Level IV 10:41:41 C BRIDGET Sherman MD [facility] CPT-07432 [id number] Vst-Est Level III 09:40:56 CDT Tesfaye Sherman [facility] CPT-99601 Level 4 Est. Patient 22:18:12 CDT Tesfaye pearson MD [facility] CPT-77820 Level 4 Est. Patient 14:44:33 FIREWORKS DISPLAY SPECIALIST Tesfaye pearson MD [facility] CPT-09056 Level 4 Est. Patient 13:55:29 FIREWORKS DISPLAY SPECIALIST Tesfaye pearson MD [facility] CPT-92371 Level 4 Est. Patient 17:07:34 FIREWORKS DISPLAY SPECIALIST Tesfaye pearson MD [facility] CPT-03161 Level 4 Est. Patient 13:56:54 CDT Tesfaye pearson MD [facility] CPT-50044 Level 4 Est. Patient 13:24:25 CDT Chelsea sanz APRN [facility] CPT-42483 Level 4 Est. Patient 09:14:56 CDT Tesfaye pearson MD [facility] CPT-31063 Level 4 Est. Patient 18:40:25 FIREWORKS DISPLAY SPECIALIST Tesfaye pearson MD [facility] CPT-93258 Level 4 Est. Patient 18:13:07 FIREWORKS DISPLAY SPECIALIST Tesfaye pearson MD [facility] CPT-63940 Level 3 Est. Patient 10:46:32 CDT Rj cotto DO [facility] CPT-43891 Level 4 Est. Patient 20:19:25 CDT Tesfaye pearson MD [facility] CPT-55767 Level 3 Est. Patient 09:07:31 CDT Tesfaye pearson MD [facility]-06134 Level 4 Est. Patient 13:12:56 CDT Tesfaye pearson MD [facility]-52421 Level 4 Est. Patient 21:24:55 FIREWORKS DISPLAY SPECIALIST Tesfaye pearson MD [facility]-04254 Level 3 Est. Patient 13:45:04 FIREWORKS DISPLAY SPECIALIST Tesfaye pearson MD [facility] CPT-01524 Level 4 Est. Patient 13:50:45 CDT Tesfaye pearson MD [facility] CPT-55574 Level 3 Est. Patient 10:16:10 CDT Tesfaye pearson MD [facility] CPT-78665 Level 3 Est. Patient 16:36:07 FIREWORKS DISPLAY SPECIALIST Kayla jameson MD [facility] CPT-71982 Level 4 Est. Patient 16:00:14 FIREWORKS DISPLAY SPECIALIST Tesfaye pearson MD [facility]-91162 Level 4 Est. Patient 11:02:24 FIREWORKS DISPLAY SPECIALIST Tesfaye pearson MD [facility] CPT-38177 Level 3 Est. Patient 20:21:43 FIREWORKS DISPLAY SPECIALIST Kayla jameson MD [facility] CPT-54921 Level 3 Est. Patient 13:27:28 FIREWORKS DISPLAY SPECIALIST Kayla jameson MD [facility] CPT-22636 Level 4 Est. Patient 15:57:17 FIREWORKS DISPLAY SPECIALIST Tesfaye pearson MD [facility] CPT-35362 Level 3 New Patient 13:25:47 CDT Tesfaye kidd MD [facility] CPT-69694 Level 3 New Patient 17:22:21 CDT Kayla angel MD [facility] Procedures Code Procedure Name Date Entry Date Standard Desc ription [facility]-G0439 Subsequent Annual Wellness Exam 22:18:11 CDT CPT-96339 Bone Density - XRAY USE ONLY 11:43:58 CDT 2 CPT-80040 Bone Density - XRAY USE ONLY 10:05:16 CDT 2 CPT-34410 Prv Med New Pt 40-64 yrs 18:19:25 CDT 2016 CPT-90096 Foot, right, comp min 3V - XRAY USE ONLY 10:38:34 CDT CPT-G0439 Subsequent Annual Wellness Exam 13:55:04 CDT CPT-G0438 Initial Annual Wellness Exam 11:23:17 CD T CPT-J2930 Solu Medrol 125 mg (Methyl Prednisolone Sodium Succinate) 17:29:12 FIREWORKS DISPLAY SPECIALIST CPT-31948 Abx/Therapy Injection 17:29:11 FIREWORKS DISPLAY SPECIALIST CPT-J2930 Solu Medrol 125 mg (Methyl Prednisolone Sodium Succinate) 12:34:38 FIREWORKS DISPLAY SPECIALIST CPT-J3420 Vitamin B12 1000mcg (Cyanocobalamin) 09:12:55 CDT CPT-J3420 Vitamin B12 1000mcg (Cyanocobalamin) 16:28:06 FIREWORKS DISPLAY SPECIALIST CPT-86917 Venipuncture Draw Fee 08:39:53 CDT CPT-J3420 Vitamin B12 1000mcg (Cyanocobalamin) 08:46:22 CDT CPT-62023 Abx/Therapy Injection 08:46:22 CDT CPT-J3420 Vitamin B12 1000mcg (Cyanocobalamin) 08:41:26 CDT CPT-99604 Abx/Therapy Injection 08:41:26 CDT CPT-J3420 Vitamin B12 1000mcg (Cyanocobalamin) 08:57:15 CDT CPT-78866 Abx/Therapy Injection 08:57:15 CDT CPT-J3420 Vitamin B12 1000mcg (Cyanocobalamin) 10:59:03 CDT CPT-31791 Abx/Therapy Injection 10:59:03 CDT CPT-J3420 Vitamin B12 1000mcg (Cyanocobalamin) 15:05:39 CDT CPT-00511 Abx/Therapy Injection 15:05:39 CDT CPT-J3420 Vitamin B12 1000mcg (Cyanocobalamin) 13:50:45 CDT CPT-J3420 Vitamin B12 1000mcg (Cyanocobalamin) 08:48:55 CDT CPT-29720 Abx/Therapy Injection 08:48:55 CDT CPT-J3420 Vitamin B12 1000mcg (Cyanocobalamin) 09:14:54 CDT CPT-27115 Abx/Therapy Injection 09:14:54 CDT CPT-J3420 Vitamin B12 1000mcg (Cyanocobalamin) 09:06:06 CDT CPT-81858 Abx/Therapy Injection 09:06:06 CDT CPT-J3420 Vitamin B12 1000mcg (Cyanocobalamin) 09:49:14 CDT CPT-93441 Abx/Therapy Injection 09:49:14 CDT CPT-J3420 Vitamin B12 1000mcg (Cyanocobalamin) 09:10:30 FIREWORKS DISPLAY SPECIALIST CPT-82126 Abx/Therapy Injection 09:10:30 FIREWORKS DISPLAY SPECIALIST CPT-J3420 Vitamin B12 1000mcg (Cyanocobalamin) 09:11:07 FIREWORKS DISPLAY SPECIALIST CPT-65490 Abx/Therapy Injection 09:11:07 FIREWORKS DISPLAY SPECIALIST CPT-J3420 Vitamin B12 1000mcg (Cyanocobalamin) 09:57:03 FIREWORKS DISPLAY SPECIALIST CPT-03428 Abx/Therapy Injection 09:57:03 FIREWORKS DISPLAY SPECIALIST CPT-J3420 Vitamin B12 1000mcg (Cyanocobalamin) 09:23:21 FIREWORKS DISPLAY SPECIALIST CPT-09765 Abx/Therapy Injection 09:23:21 FIREWORKS DISPLAY SPECIALIST CPT-08909 Urine Dip (Floor Use Only) 20:21:44 FIREWORKS DISPLAY SPECIALIST 201 02/12/11 CPT-72887 UA Dip Auto (Floor Use Only) 10:04:39 FIREWORKS DISPLAY SPECIALIST 2 CPT-46874 Urine Dip (Floor Use Only) 13:27:28 FIREWORKS DISPLAY SPECIALIST 201 02/12/01 CPT-55135 Bladder Scan 13:27:28 FIREWORKS DISPLAY SPECIALIST CPT-94802 Abd single AP View 14:30:51 FIREWORKS DISPLAY SPECIALIST CPT-OV Office Visit 10:15:43 CDT CPT-99269 Urine Dip (Floor Use Only) 17:22:21 CDT 201 02/09/02 CPT-74327 Bladder Scan 17:22:21 CDT
--- OUTSIDE RECORDS SUMMARY | 2020-05-05 11:32 | XMS REPORT | Clinical Summary ---
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 Tesfaye Sherman MD Long-term (current) drug use Yeast infection 112.9 Inactive Tesfaye Sherman MD Candidiasis of unspecified site Upper respiratory infection 465.9 Inactive Tesfaye Sherman MD Acute upper respiratory infections of un specified site Lower extremity edema, bilateral 782.3 Active 201 07/07/09 León Kodi CLEANER AND TRIMMER Edema Peripheral neuropathy 356.9 Active Tesfaye lamb [...] Wilner Sherman MD Vertigo ICD-780.4 Inactive Tesfaye Sheramn MD 201 07/05/07 Body Mass Index 20.0-20.9 Adult Inactiv jim Shah RMA Dysuria ICD-788.1 Inactive Tesfaye Sherman MD 201 07/05/07 Yeast infection ICD-112.9 Inactive Tesfaye lamb MD Upper respiratory infection ICD-465.9 Inactive Tesfaye Sherman MD Medication List Medication Instructions Start Date Stop Date Generic Name ND Status Provider Patient Instruction FENOFIBRATE 145 MG ORAL TABLET 1 by mouth daily FENOFIBRATE 38164843536 Active Laurence Dominguez Active AMITRIPTYLINE HCL 10 MG ORAL TABLET 1 tablet nightly by mout h for neuropathy AMITRIPTYLINE HCL 97054071108 Active Tesfaye Sherman MD Active GABAPENTIN 300 MG ORAL CAPSULE 1 po daily GABAP ENTIN 66427599374 No Longer Active Tesfaye Sherman MD Active HYDROCHLOROTHIAZIDE 12.5 MG ORAL CAPSULE 1 pill by mough daily 2 HYDROCHLOROTHIAZIDE 65103589591 No Longer Active León Mariee APRN Active VENLAFAXINE HCL 75 MG ORAL TABLET 1 am 1/ at noon 201 07/07/09 VENLAFAXINE HCL 61049548853 No Longer Active León Mariee APRN Act trent DIFLUCAN 100 MG ORAL TABLET 1 tablet by mouth daily 20 19/02/09 FLUCONAZOLE 12986980445 No Longer Active León Kodi [employer]ER [employer]IMMER Active DIFLUCAN 100 MG ORAL TABLET 1 tablet by mouth daily 20 19/02/09 FLUCONAZOLE 68381246975 No Longer Active Leónkash Mariee APRN Active OXYCODONE-ACETAMINOPHEN 5-325 MG ORAL TABLET Take one tablet by mouth every 6 hours 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 Use sparingly OXYCODONE-ACETAMINOPHEN 28749400663 Active Tesfaye villar MD Active CLONAZEPAM 0.5 MG ORAL TABLET Take 1/2 qam, and 1/2 qpm CLONAZEPAM 63323940132 Active Tesfaye Sherman MD Active PRELIEF 340 (65-50) MG (CA-P) ORAL TABLET CALCIUM GLYCEROPHOSPHATE 61293683176 No Longer Active Tesfaye Sherman MD Active SUDAFED 24 HOUR 240 MG ORAL TABLET EXTENDED RELEASE 24 HOUR 1 tab po daily PSEUDOEPHEDRINE HCL 57465449684 No Longer Active Raul Sherman MD Active RED YEAST RICE 600 MG ORAL CAPSULE 1 pill by mouth daily RED YEAST RICE EXTRACT 31518982998 No Longer Active Tesfaye Sherman MD Active REPHRESH PRO-B ORAL CAPSULE 1 tablet daily LACT OBACILLUS 07786210850 No Longer Active Tesfaye Sherman MD Active SUDAFED 12 HOUR 120 MG ORAL TABLET EXTENDED RELEASE 12 HOUR 1 pill twice daily if needed for congestion PSEUDOEPHEDRINE HCL 07823329551 A ctive Tesfaye Sherman MD Active ABILIFY 2 MG ORAL TABLET 1 by mouth daily. MARIA ELENA PIPRAZOLE 40918804731 Active Tesfaye Sherman MD Active CYMBALTA 60 MG ORAL CAPSULE DELAYED RELEASE PARTICLES 1 cap by mouth daily for pain DULOXETINE HCL 10989255603 Active Tesfaye Owusu Active DIFLUCAN 100 MG ORAL TABLET 1 tablet by mouth daily 20 20/06/06 FLUCONAZOLE 31636265819 No Longer Active Tesfaye Sherman MD Acti ve PREDNISONE 20 MG ORAL TABLET 1 tablet by mouth twice d aily for 3 days, then 1 tablet daily for 3 days PREDNISONE 94088685888 No L onger Active Tesfaye Sherman MD Active BACTRIM DS 800-160 MG ORAL TABLET 1 tab by mouth twice daily 201 06/09/02 TRIMETHOPRIM-SULFAMETHOXAZOLE 92145503244 No Longer Active Fer Dominguez Active DIFLUCAN 100 MG ORAL TABLET 1 tablet by mouth daily 20 20/05/01 FLUCONAZOLE 99838632327 No Longer Active Tesfaye Sherman MD Acti ve ZITHROMAX 250 MG ORAL TABLET 2 po today, then 1 po q days 2-5 20 20/04/28 AZITHROMYCIN 39240967335 No Longer Active Tesfaye Sherman MD Active MECLIZINE HCL 25 MG ORAL TABLET one tab po qday prn dizziness 20 17/09/06 MECLIZINE HCL 57010636524 No Longer Active Tesfaye Sherman MD Active PROAIR HFA 108 (90 BASE) MCG/ACT INHALATION AEROSOL SO LUTION 1 puff every 6 hours as needed ALBUTEROL SULFATE 73032712538 No Long er Active Tesfaye Sherman MD Active PREDNISONE 20 MG ORAL TABLET 1 tab twice daily for 3 d ay, then one daily for three days PREDNISONE 04134755044 No Longer Active Tesfaye Sherman MD Active MECLIZINE HCL 25 MG ORAL TABLET one 4 times a day as needed for dizziness MECLIZINE HCL 81664350865 Active Tesfaye Sherman MD Active AMOXICILLIN 500 MG ORAL CAPSULE 1 cap by mouth three times a day AMOXICILLIN 40648114924 No Longer Active Laurence Raduyen Acti ve DIFLUCAN 100 MG ORAL TABLET 1 tablet by mouth daily 20 19/08/26 FLUCONAZOLE 24350320384 No Longer Active Tesfaye Sherman MD Acti ve BACTRIM DS 800-160 MG ORAL TABLET 1 tab by mouth twice daily 201 05/10/28 TRIMETHOPRIM-SULFAMETHOXAZOLE 85979129384 No Longer Active Fer Dominguez Active FOSAMAX 70 MG ORAL TABLET 1 po qweek. Take 30min prio r to first food/drink. Avoid lying down x 1 hour. ALENDRONATE SODIUM 52449990 144 No Longer Active Laurence Dominguez Active CYMBALTA 60 MG ORAL CAPSULE DELAYED RELEASE PARTICLES Take 1 tablet by mouth daily DULOXETINE HCL 80240401639 No Longer Active Edith Burch MD Active CYMBALTA 30 MG ORAL CAPSULE DELAYED RELEASE PARTICLES 1 cap by mouth daily with 60mg DULOXETINE HCL 52942585317 No Longer Active Jordan Burch MD Active FISH OIL 1000 MG ORAL CAPSULE DELAYED RELEASE 1 pill b y mouth daily for cholesterol OMEGA-3 FATTY ACIDS 69922825986 Active Cee Jaffe LPN Active DIFLUCAN 100 MG ORAL TABLET 1 tablet by mouth daily 20 19/03/05 FLUCONAZOLE 13325490909 No Longer Active Tesfaye Sherman MD Acti ve BACTRIM DS 800-160 MG ORAL TABLET 1 tab by mouth twice daily 201 05/06/28 TRIMETHOPRIM-SULFAMETHOXAZOLE 59766631341 No Longer Active Umer Sherman MD Active BACTRIM DS 800-160 MG ORAL TABLET 1 tab by mouth twice daily 201 05/04/15 TRIMETHOPRIM-SULFAMETHOXAZOLE 34912909253 No Longer Active Umer Sherman MD Active DIFLUCAN 150 MG ORAL TABLET 1 tablet by mouth daily 20 18/09/20 FLUCONAZOLE 52003282983 No Longer Active Tesfaye Sherman MD Acti ve BACTRIM DS 800-160 MG ORAL TABLET 1 tab by mouth twice daily 201 04/13/17 TRIMETHOPRIM-SULFAMETHOXAZOLE 37325123173 No Longer Active Umer Sherman MD Active ROPINIROLE HCL 0.25 MG ORAL TABLET 1 TAB PO Q HS ROPINIROLE HCL 99066578058 Active Tesfaye Sherman MD Active CEFTIN 250 MG ORAL TABLET 1 tablet twice daily x 7 days CEFUROXIME AXETIL 93806530379 No Longer Active Tesfaye Sherman MD Active DIFLUCAN 100 MG ORAL TABLET 1 tablet by mouth every other da y for 2 doses FLUCONAZOLE 44327526553 No Longer Active Tesfaye barron MD Active DIFLUCAN 100 MG ORAL TABLET 1 tablet by mouth daily X 3 DAYS 201 04/09/01 FLUCONAZOLE 12262192724 No Longer Active Rj Lyons tidragan MIRTAZAPINE 15 MG ORAL TABLET 1/2 tab by mouth at bedtime. 03/13 MIRTAZAPINE 45432502387 No Longer Active Tesfaye Sherman MD Active BACTRIM DS 800-160 MG ORAL TABLET 1 tab by mouth twice daily 201 04/09/01 TRIMETHOPRIM-SULFAMETHOXAZOLE 14763747796 No Longer Active Umer Sherman MD Active PRAMIPEXOLE DIHYDROCHLORIDE 0.125 MG ORAL TABLET take 1 tablet po qhs for restless leg syndrome. PRAMIPEXOLE DIHYDROCHLORI DE 86032338576 No Longer Active Tesfaye Sherman MD Active MAGNESIUM 400 MG ORAL TABLET 1 tab po daily FELIX FAGAN 91956283820 Active Chelsea Cardenas APRN Active CETIRIZINE HCL 5 MG ORAL TABLET Take 1 tablet by mouth daily CETIRIZINE HCL 91780549594 No Longer Active Chelsea Cardenas APRN Activ e TRIMETHOPRIM 100 MG ORAL TABLET 1/2 qd TRIM ETHOPRIM 58249429246 No Longer Active Chelsea Cardenas APRN Active BACTRIM DS 800-160 MG ORAL TABLET 1 tab by mouth twice daily 201 04/04/11 TRIMETHOPRIM-SULFAMETHOXAZOLE 27883753906 No Longer Active Umer Sherman MD Active BACTRIM DS 800-160 MG ORAL TABLET 1 tab by mouth twice daily X 10 DAYS TRIMETHOPRIM-SULFAMETHOXAZOLE 01356111536 No Longer Active Tesfaye Sherman MD Active AMOXICILLIN 500 MG ORAL CAPSULE 1 cap by mouth three times a day AMOXICILLIN 95134593672 No Longer Active Adriana Arredondo, [facility] A ctive B-12 1000 MCG ORAL LOZENGE 1 tab po daily CYANO COBALAMIN 49835741801 Active Tesfaye Sherman MD Active VITAMIN D3 2000 UNIT ORAL TABLET 1 daily, for vitamin D deficien cy CHOLECALCIFEROL 90104361870 No Longer Active Tesfaye Sherman MD Active TIZANIDINE HCL 2 MG ORAL TABLET take 1-2 tablet by [facility] every day at bedtime at 9pm PRN TIZANIDINE HCL 93403250880 Active Tesfaye hewitt MD Active ZITHROMAX 250 MG ORAL TABLET 2 po today, then 1 po q days 2-5 20 15/02/10 AZITHROMYCIN 58127482375 No Longer Active Tesfaye Sherman MD Active BACTRIM DS 800-160 MG ORAL TABLET 1 tab by mouth twice daily 201 03/03/23 TRIMETHOPRIM-SULFAMETHOXAZOLE 31972931596 No Longer Active Umer Sherman MD Active [facility] NIACIN FLUSH FREE 400-100 MG ORAL CAPSULE 1 daily NIACIN-INOSITOL 32189294770 Active Kayla Cooper MD Activ e DIFLUCAN 150 MG ORAL TABLET 1 qd FLUCONAZOL E 13823836369 No Longer Active Kayla Cooper MD Active FLUTICASONE PROPIONATE 50 MCG/ACT NASAL SUSPENSION 1 spray each nostril twice daily FLUTICASONE PROPIONATE 02057916891 Active D patricia Sherman MD Active LOVASTATIN 20 MG ORAL TABLET Take 1 tablet by mouth daily LOVASTATIN 26074803292 No Longer Active Tesfaye Sherman MD Acti ve MELOXICAM 7.5 MG ORAL TABLET 1 tablet by mouth daily 2 MELOXICAM 25244449540 No Longer Active Tesfaye Sherman MD Acti ve GABAPENTIN 300 MG ORAL CAPSULE Take two tablets by mouth every e vening GABAPENTIN 03033087798 No Longer Active Edith Burch MD A ctive BACLOFEN 10 MG ORAL TABLET Take one tablet by mouth three times a d ay BACLOFEN 74041789139 Active Kayla Cooper MD Active GABAPENTIN 300 MG ORAL CAPSULE Take two tablets by mouth every e vening GABAPENTIN 300 MG ORAL CAPSULE 559879 GABAPENTIN I nactive MELOXICAM 7.5 MG ORAL TABLET 1 tablet by mouth daily 2 MELOXICAM 7.5 MG ORAL TABLET 855801 MELOXICAM Inactive LOVASTATIN 20 MG ORAL TABLET Take 1 tablet by mouth daily LOVASTATIN 20 MG ORAL TABLET 938819 LOVASTATIN Inactive DIFLUCAN 150 MG ORAL TABLET 1 qd DIFLUCAN 150 MG ORAL TABLET 178627 FLUCONAZOLE Inactive VITAMIN D3 2000 UNIT ORAL TABLET 1 daily, for vitamin D deficien cy VITAMIN D3 2000 UNIT ORAL TABLET CHOLECALCIFEROL Inactive AMOXICILLIN 500 MG ORAL CAPSULE 1 cap by mouth three times a day AMOXICILLIN 500 MG ORAL CAPSULE 723727 AMOXICILLIN Inactive BACTRIM DS 800-160 MG ORAL TABLET 1 tab by mouth twice daily X 10 DAYS BACTRIM DS 800-160 MG ORAL TABLET 452267 TRIMETHOPRIM-SULFAMETHOXAZOLE Inactive TRIMETHOPRIM 100 MG ORAL TABLET 1/2 qd 2016/05/1 7 TRIMETHOPRIM 100 MG ORAL TABLET 265998 TRIMETHOPRIM Inactive CETIRIZINE HCL 5 MG ORAL TABLET Take 1 tablet by mouth daily CETIRIZINE HCL 5 MG ORAL TABLET 2606960 CETIRIZINE HCL Inactive PRAMIPEXOLE DIHYDROCHLORIDE 0.125 MG ORAL TABLET take 1 tablet po qhs for restless leg syndrome. PRAMIPEXOLE DIHYD ROCHLORIDE 0.125 MG ORAL TABLET 801225 PRAMIPEXOLE DIHYDROCHLORIDE Inactive MIRTAZAPINE 15 MG ORAL TABLET 1/2 tab by mouth at bedtime. 03/13 MIRTAZAPINE 15 MG ORAL TABLET 251250 MIRTAZAPINE In active DIFLUCAN 100 MG ORAL TABLET 1 tablet by mouth daily X 3 DAYS 201 04/09/01 DIFLUCAN 100 MG ORAL TABLET 088249 FLUCONAZOLE Inac tive DIFLUCAN 100 MG ORAL TABLET 1 tablet by mouth every other da y for 2 doses DIFLUCAN 100 MG ORAL TABLET 112540 FLUCONAZOLE Inactive CEFTIN 250 MG ORAL TABLET 1 tablet twice daily x 7 days CEFTIN 250 MG ORAL TABLET CEFUROXIME AXETIL Inactive CYMBALTA 30 MG ORAL CAPSULE DELAYED RELEASE PARTICLES 1 cap by mouth daily with 60mg CYMBALTA 30 MG ORAL CAPSULE DELAYED RELEASE PARTICLES 064605 DULOXETINE HCL Inactive CYMBALTA 60 MG ORAL CAPSULE DELAYED RELEASE PARTICLES Take 1 tablet by mouth daily CYMBALTA 60 MG ORAL CAPSULE DELAYED RELEA SE PARTICLES 342292 DULOXETINE HCL Inactive FOSAMAX 70 MG ORAL TABLET 1 po qweek. Take 30min prio r to first food/drink. Avoid lying down x 1 hour. FOSAMAX 70 MG ORAL TA BLET 900743 ALENDRONATE SODIUM Inactive DIFLUCAN 100 MG ORAL TABLET 1 tablet by mouth daily 19/08/26 DIFLUCAN 100 MG ORAL TABLET 518160 FLUCONAZOLE Inactive PREDNISONE 20 MG ORAL TABLET 1 tab twice daily for 3 d ay, then one daily for three days PREDNISONE 20 MG ORAL TABLET 208195 PREDNIS ONE Inactive PROAIR HFA 108 (90 BASE) MCG/ACT INHALATION AEROSOL SO LUTION 1 puff every 6 hours as needed PROAIR HFA 108 (90 B ASE) MCG/ACT INHALATION AEROSOL SOLUTION ALBUTEROL SULFATE Inactive MECLIZINE HCL 25 MG ORAL TABLET one tab po qday prn dizziness 20 17/09/06 MECLIZINE HCL 25 MG ORAL TABLET 172084 MECLIZINE HCL Inactive PREDNISONE 20 MG ORAL TABLET 1 tablet by mouth twice d aily for 3 days, then 1 tablet daily for 3 days PREDNISONE 20 MG ORAL TA BLET 633070 PREDNISONE Inactive DIFLUCAN 100 MG ORAL TABLET 1 tablet by mouth daily 20 20/06/06 DIFLUCAN 100 MG ORAL TABLET 19760711 FLUCONAZOLE Inactive REPHRESH PRO-B ORAL CAPSULE 1 tablet daily REPHRESH PRO-B ORAL CAPSULE LACTOBACILLUS Inactive RED YEAST RICE 600 MG ORAL CAPSULE 1 pill by mouth daily RED YEAST RICE 600 MG ORAL CAPSULE 685749 RED YEAST RICE EXTRACT In active SUDAFED [...] 20 19/02/09 DIFLUCAN 100 MG ORAL TABLET 371324 FLUCONAZOLE Inactive VENLAFAXINE HCL 75 MG ORAL TABLET 1 am 1/2 at noon 201 07/07/09 VENLAFAXINE HCL 75 MG ORAL TABLET 077813 VENLAFAXINE HCL Inacti ve GABAPENTIN 300 MG ORAL CAPSULE 1 po daily GABAPENTIN 300 MG ORAL CAPSULE 358461 GABAPENTIN Inactive BACTRIM DS 800-160 MG ORAL TABLET 1 tab by mouth twice daily 201 03/03/23 BACTRIM DS 800-160 MG ORAL TABLET 099135 TRIMETHOPRIM-SULFAMETHOXAZOLE Inactive ZITHROMAX 250 MG ORAL TABLET 2 po today, then 1 po q days 2-5 20 15/02/10 ZITHROMAX 250 MG ORAL TABLET 564560 AZITHROMYCIN Mayela ctive BACTRIM DS 800-160 MG [...] 05/06/28 BACTRIM DS 800-160 MG ORAL TABLET 267962 TRIMETHOPRIM-SULFAMETHOXAZOLE Inactive DIFLUCAN 100 MG ORAL TABLET 1 tablet by mouth daily 20 19/03/05 DIFLUCAN 100 MG ORAL TABLET 170268 FLUCONAZOLE Inactive BACTRIM DS 800-160 MG ORAL TABLET 1 tab by mouth twice daily 201 05/10/28 BACTRIM DS 800-160 MG ORAL TABLET 278884 TRIMETHOPRIM-SULFAMETHOXAZOLE Inactive AMOXICILLIN 500 MG ORAL CAPSULE 1 cap by mouth three times a day AMOXICILLIN 500 MG ORAL CAPSULE 739376 AMOXICILLIN Inactive ZITHROMAX 250 MG ORAL TABLET 2 po today, then 1 po q days 2-5 20 20/04/28 ZITHROMAX 250 MG ORAL TABLET 196882 AZITHROMYCIN [place] ctive DIFLUCAN 100 MG ORAL TABLET 1 tablet by mouth daily 20 20/05/01 DIFLUCAN 100 MG ORAL TABLET 19760711 FLUCONAZOLE Inactive BACTRIM DS 800-160 MG ORAL TABLET 1 tab by mouth twice daily 201 06/09/02 BACTRIM DS 800-160 MG ORAL TABLET 632342 TRIMETHOPRIM-SULFAMETHOXAZOLE Inactive HYDROCHLOROTHIAZIDE 12.5 MG ORAL CAPSULE 1 pill by mough daily 2 HYDROCHLOROTHIAZIDE 12.5 MG ORAL CAPSULE HYDROCH LOROTHIAZIDE Inactive Advance Directives Directive Description Start Date PERMISSION TO SHARE DISCUSSED WITH PATIENT -- NO DECISION MADE DURABLE POWER OF PAIN COORDINATOR FOR HEALTHCARE DISCUSED WITH PATIENT -- FULL [...] dipstick Trace-lysed Negative sodium, serum 139 mmol/L 598-826 9246/11/07 carbon dioxide, venous blood 28.4 mmol/L 21.0-32 [...] 5.0-8.5 Encounters Code Encounter Date Provider Facility CPT-63320 [id number] Vst-Est Level IV 17:09:34 Wilmar Sherman MD [facility] CPT-17740 Level 3 Est. Patient 17:27:08 CDT León hernandez APRN [facility] CPT-27524 [id number] Vst-Est Level IV 14:00:[address] Tesfaye Sherman MD [facility] CPT-61129 [id number] Vst-Est Level IV 19:27:[address] Tesfaye Sherman MD [facility] CPT-67955 [id number] Vst-Est Level IV 10:41:41 C BRIDGET Sherman MD [facility] CPT-35858 [id number] Vst-Est Level III 09:40:56 CDT Tesfaye Sherman [facility] CPT-65515 Level 4 Est. Patient 22:18:12 CDT Tesfaye pearson MD [facility] CPT-56366 Level 4 Est. Patient 14:44:33 SUPERVISOR TYPE BAR AND SEGMENT Tesfaye pearson MD [facility] CPT-92795 Level 4 Est. Patient 13:55:29 SUPERVISOR TYPE BAR AND SEGMENT Tesfaye pearson MD [facility] CPT-41855 Level 4 Est. Patient 17:07:34 SUPERVISOR TYPE BAR AND SEGMENT Tesfaye pearson MD [facility] CPT-94640 Level 4 Est. Patient 13:56:54 CDT Tesfaye pearson MD [facility] CPT-93913 Level 4 Est. Patient 13:24:25 CDT Chelsea sanz APRN [facility] CPT-66170 Level 4 Est. Patient 09:14:56 CDT Tesfaye pearson MD [facility] CPT-52156 Level 4 Est. Patient 18:40:25 SUPERVISOR TYPE BAR AND SEGMENT Tesfaye pearson MD [facility] CPT-72835 Level 4 Est. Patient 18:13:07 SUPERVISOR TYPE BAR AND SEGMENT Tesfaye pearson MD [facility] CPT-87545 Level 3 Est. Patient 10:46:32 CDT Rj cotto DO [facility] CPT-81870 Level 4 Est. Patient 20:19:25 CDT Tesfaye pearson MD [facility] CPT-63159 Level 3 Est. Patient 09:07:31 CDT Tesfaye pearson MD [facility]-24915 Level 4 Est. Patient 13:12:56 CDT Tesfaye pearson MD [facility]-08173 Level 4 Est. Patient 21:24:55 SUPERVISOR TYPE BAR AND SEGMENT Tesfaye pearson MD [facility]-94015 Level 3 Est. Patient 13:45:04 SUPERVISOR TYPE BAR AND SEGMENT Tesfaye pearson MD [facility] CPT-17673 Level 4 Est. Patient 13:50:45 CDT Tesafye pearson MD [facility] CPT-70018 Level 3 Est. Patient 10:16:10 CDT Tesfaye pearson MD [facility] CPT-77464 Level 3 Est. Patient 16:36:07 SUPERVISOR TYPE BAR AND SEGMENT Kayla jameson MD [facility] CPT-79427 Level 4 Est. Patient 16:00:14 SUPERVISOR TYPE BAR AND SEGMENT Tesfaye pearson MD [facility]-05572 Level 4 Est. Patient 11:02:24 SUPERVISOR TYPE BAR AND SEGMENT Tesfaye pearson MD [facility] CPT-93708 Level 3 Est. Patient 20:21:43 SUPERVISOR TYPE BAR AND SEGMENT Kayla jameson MD [facility] CPT-75410 Level 3 Est. Patient 13:27:28 SUPERVISOR TYPE BAR AND SEGMENT Kayla jameson MD [facility] CPT-64925 Level 4 Est. Patient 15:57:17 SUPERVISOR TYPE BAR AND SEGMENT Tesfaye pearson MD [facility] CPT-98633 Level 3 New Patient 13:25:47 CDT Tesfaye kidd MD [facility] CPT-23689 Level 3 New Patient 17:22:21 CDT Kalya angel MD [facility] Procedures Code Procedure Name Date Entry Date Standard Desc ription [facility]-G0439 Subsequent Annual Wellness Exam 22:18:11 CDT CPT-65260 Bone Density - XRAY USE ONLY 11:43:58 CDT 2 CPT-68846 Bone Density - XRAY USE ONLY 10:05:16 CDT 2 CPT-97352 Prv Med New Pt 40-64 yrs 18:19:25 CDT 2016 CPT-46942 Foot, right, comp min 3V - XRAY USE ONLY 10:38:34 CDT CPT-G0439 Subsequent Annual Wellness Exam 13:55:04 CDT CPT-G0438 Initial Annual Wellness Exam 11:23:17 CD T CPT-J2930 Solu Medrol 125 mg (Methyl Prednisolone Sodium Succinate) 17:29:12 SUPERVISOR TYPE BAR AND SEGMENT CPT-64683 Abx/Therapy Injection 17:29:11 SUPERVISOR TYPE BAR AND SEGMENT CPT-J2930 Solu Medrol 125 mg (Methyl Prednisolone Sodium Succinate) 12:34:38 SUPERVISOR TYPE BAR AND SEGMENT CPT-J3420 Vitamin B12 1000mcg (Cyanocobalamin) 09:12:55 CDT CPT-J3420 Vitamin B12 1000mcg (Cyanocobalamin) 16:28:06 SUPERVISOR TYPE BAR AND SEGMENT CPT-43905 Venipuncture Draw Fee 08:39:53 CDT CPT-J3420 Vitamin B12 1000mcg (Cyanocobalamin) 08:46:22 CDT CPT-48563 Abx/Therapy Injection 08:46:22 CDT CPT-J3420 Vitamin B12 1000mcg (Cyanocobalamin) 08:41:26 CDT CPT-65718 Abx/Therapy Injection 08:41:26 CDT CPT-J3420 Vitamin B12 1000mcg (Cyanocobalamin) 08:57:15 CDT CPT-19683 Abx/Therapy Injection 08:57:15 CDT CPT-J3420 Vitamin B12 1000mcg (Cyanocobalamin) 10:59:03 CDT CPT-43783 Abx/Therapy Injection 10:59:03 CDT CPT-J3420 Vitamin B12 1000mcg (Cyanocobalamin) 15:05:39 CDT CPT-93707 Abx/Therapy Injection 15:05:39 CDT CPT-J3420 Vitamin B12 1000mcg (Cyanocobalamin) 13:50:45 CDT CPT-J3420 Vitamin B12 1000mcg (Cyanocobalamin) 08:48:55 CDT CPT-40263 Abx/Therapy Injection 08:48:55 CDT CPT-J3420 Vitamin B12 1000mcg (Cyanocobalamin) 09:14:54 CDT CPT-56969 Abx/Therapy Injection 09:14:54 CDT CPT-J3420 Vitamin B12 1000mcg (Cyanocobalamin) 09:06:06 CDT CPT-51853 Abx/Therapy Injection 09:06:06 CDT CPT-J3420 Vitamin B12 1000mcg (Cyanocobalamin) 09:49:14 CDT CPT-81166 Abx/Therapy Injection 09:49:14 CDT CPT-J3420 Vitamin B12 1000mcg (Cyanocobalamin) 09:10:30 SUPERVISOR TYPE BAR AND SEGMENT CPT-51828 Abx/Therapy Injection 09:10:30 SUPERVISOR TYPE BAR AND SEGMENT CPT-J3420 Vitamin B12 1000mcg (Cyanocobalamin) 09:11:07 SUPERVISOR TYPE BAR AND SEGMENT CPT-29067 Abx/Therapy Injection 09:11:07 SUPERVISOR TYPE BAR AND SEGMENT CPT-J3420 Vitamin B12 1000mcg (Cyanocobalamin) 09:57:03 SUPERVISOR TYPE BAR AND SEGMENT CPT-72234 Abx/Therapy Injection 09:57:03 SUPERVISOR TYPE BAR AND SEGMENT CPT-J3420 Vitamin B12 1000mcg (Cyanocobalamin) 09:23:21 SUPERVISOR TYPE BAR AND SEGMENT CPT-84922 Abx/Therapy Injection 09:23:21 SUPERVISOR TYPE BAR AND SEGMENT CPT-24445 Urine Dip (Floor Use Only) 20:21:44 SUPERVISOR TYPE BAR AND SEGMENT 201 02/12/11 CPT-47272 UA Dip Auto (Floor Use Only) 10:04:39 SUPERVISOR TYPE BAR AND SEGMENT 2 CPT-36091 Urine Dip (Floor Use Only) 13:27:28 SUPERVISOR TYPE BAR AND SEGMENT 201 02/12/01 CPT-35503 Bladder Scan 13:27:28 SUPERVISOR TYPE BAR AND SEGMENT CPT-71872 Abd single AP View 14:30:51 SUPERVISOR TYPE BAR AND SEGMENT CPT-OV Office Visit 10:15:43 CDT CPT-34656 Urine Dip (Floor Use Only) 17:22:21 CDT 201 02/09/02 CPT-10207 Bladder Scan 17:22:21 CDT
--- OUTSIDE RECORDS SUMMARY | 2020-05-05 11:33 | XMS REPORT | Clinical Summary ---
Author Author Talon, Jeri Wood Organization [employer] Address Unknown Phone Unavailable Allergies, Adverse Reactions, [...] MD Routine gynecological examination Dyspareunia 625.0 Active Ediht Burch MD Dyspareunia Transverse myelitis 323.9 Active [...] Routine general medical examination at a 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 Active Tesfaye Sherman MD Long-term (current) drug use Yeast infection 112.9 Inactive Tesfaye Sheramn MD Candidiasis of unspecified site Upper respiratory infection 465.9 Inactive Tesfaye Sherman MD Acute upper respiratory infections of un specified site Lower extremity edema, bilateral 782.3 Active 201 07/07/09 León Kodi BUFFING WHEEL INSPECTOR Edema Peripheral neuropathy 356.9 Active Tesfaye lamb [...] Generic Name ND Status Provider Patient Instruction AMITRIPTYLINE HCL 10 MG ORAL TABLET 1 tablet nightly by mout h for neuropathy AMITRIPTYLINE HCL 96146627834 Active Tesfaye Sherman MD Active GABAPENTIN 300 MG ORAL CAPSULE 1 po daily GABAP ENTIN 27827458500 No Longer Active Tesfaye Sherman MD Active HYDROCHLOROTHIAZIDE 12.5 MG ORAL CAPSULE 1 pill by mough daily 2 HYDROCHLOROTHIAZIDE 40972521992 No Longer Active Leónkash Mariee BUFFING WHEEL INSPECTOR Active VENLAFAXINE HCL 75 MG ORAL TABLET 1 am 1/ at noon 201 07/07/09 VENLAFAXINE HCL 92446999187 No Longer Active León Kodi BUFFING WHEEL INSPECTOR Act trent DIFLUCAN 100 MG ORAL TABLET 1 tablet by mouth daily 20 19/02/09 FLUCONAZOLE 30857993519 No Longer Active León Kodi BUFFING WHEEL INSPECTOR Active DIFLUCAN 100 MG ORAL TABLET 1 tablet by mouth daily 20 19/02/09 FLUCONAZOLE 01871762447 No Longer Active León Kodi BUFFING WHEEL INSPECTOR Active OXYCODONE-ACETAMINOPHEN 5-325 MG ORAL TABLET Take one tablet by mouth every 6 hours 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 Use sparingly OXYCODONE-ACETAMINOPHEN 98772767047 Active Tesfaye villar MD Active CLONAZEPAM 0.5 MG ORAL TABLET Take 1/2 qam, and 1/2 qpm CLONAZEPAM 43185288249 Active Tesfaye Sherman MD Active PRELIEF 340 (65-50) MG (CA-P) ORAL TABLET CALCIUM GLYCEROPHOSPHATE 61695664328 No Longer Active Tesfaye Sherman MD Active SUDAFED 24 HOUR 240 MG ORAL TABLET EXTENDED RELEASE 24 HOUR 1 tab po daily PSEUDOEPHEDRINE HCL 12686409630 No Longer Active Raul Sherman MD Active RED YEAST RICE 600 MG ORAL CAPSULE 1 pill by mouth daily RED YEAST RICE EXTRACT 89064388177 No Longer Active Tesfaye Sherman MD Active REPHRESH PRO-B ORAL CAPSULE 1 tablet daily LACT OBACILLUS 32255733537 No Longer Active Tesfaye Sherman MD Active SUDAFED 12 HOUR 120 MG ORAL TABLET EXTENDED RELEASE 12 HOUR 1 pill twice daily if needed for congestion PSEUDOEPHEDRINE HCL 28631543925 A ctive Tesfaye Sherman MD Active ABILIFY 2 MG ORAL TABLET 1 by mouth daily. MARIA ELENA PIPRAZOLE 36600201455 Active Tesfaye Sherman MD Active CYMBALTA 60 MG ORAL CAPSULE DELAYED RELEASE PARTICLES 1 cap by mouth daily for pain DULOXETINE HCL 67539873753 Active Tesfaye Owusu Active DIFLUCAN 100 MG ORAL TABLET 1 tablet by mouth daily 20 20/06/06 FLUCONAZOLE 72556355552 No Longer Active Tesfaye Sherman MD Acti ve PREDNISONE 20 MG ORAL TABLET 1 tablet by mouth twice d aily for 3 days, then 1 tablet daily for 3 days PREDNISONE 44484778809 No L onger Active Tesfaye Sherman MD Active BACTRIM DS 800-160 MG ORAL TABLET 1 tab by mouth twice daily 201 06/09/02 TRIMETHOPRIM-SULFAMETHOXAZOLE 04626111559 No Longer Active Fer Dominguez Active DIFLUCAN 100 MG ORAL TABLET 1 tablet by mouth daily 20 20/05/01 FLUCONAZOLE 17890372986 No Longer Active Tesfaye Sherman MD Acti ve ZITHROMAX 250 MG ORAL TABLET 2 po today, then 1 po q days 2-5 20 20/04/28 AZITHROMYCIN 22642837512 No Longer Active Tesfaye Sherman MD Active MECLIZINE HCL 25 MG ORAL TABLET one tab po qday prn dizziness 20 17/09/06 MECLIZINE HCL 23912278972 No Longer Active Tesfaye Sherman MD Active PROAIR HFA 108 (90 BASE) MCG/ACT INHALATION AEROSOL SO LUTION 1 puff every 6 hours as needed ALBUTEROL SULFATE 73551448849 No Long er Active Tesfaye Sherman MD Active PREDNISONE 20 MG ORAL TABLET 1 tab twice daily for 3 d ay, then one daily for three days PREDNISONE 38017931956 No Longer Active Tesfaye Sherman MD Active MECLIZINE HCL 25 MG ORAL TABLET one 4 times a day as needed for dizziness MECLIZINE HCL 93564818618 Active Tesfaye Sherman MD Active AMOXICILLIN 500 MG ORAL CAPSULE 1 cap by mouth three times a day AMOXICILLIN 33234960210 No Longer Active Laurence Dominguez Acti ve DIFLUCAN 100 MG ORAL TABLET 1 tablet by mouth daily 20 19/08/26 FLUCONAZOLE 45212982874 No Longer Active Tesfaye Sherman MD Acti ve BACTRIM DS 800-160 MG ORAL TABLET 1 tab by mouth twice daily 201 05/10/28 TRIMETHOPRIM-SULFAMETHOXAZOLE 14981989065 No Longer Active Fer Dominguez Active FOSAMAX 70 MG ORAL TABLET 1 po qweek. Take 30min prio r to first food/drink. Avoid lying down x 1 hour. ALENDRONATE SODIUM 55674710 144 No Longer Active Laurence Dominguez Active CYMBALTA 60 MG ORAL CAPSULE DELAYED RELEASE PARTICLES Take 1 tablet by mouth daily DULOXETINE HCL 49709833839 No Longer Active Edith Burch MD Active CYMBALTA 30 MG ORAL CAPSULE DELAYED RELEASE PARTICLES 1 cap by mouth daily with 60mg DULOXETINE HCL 10427602238 No Longer Active Jordan Burch MD Active FISH OIL 1000 MG ORAL CAPSULE DELAYED RELEASE 1 pill b y mouth daily for cholesterol OMEGA-3 FATTY ACIDS 84878259100 Active Cee Jaffe LPN Active DIFLUCAN 100 MG ORAL TABLET 1 tablet by mouth daily 20 19/03/05 FLUCONAZOLE 80961399952 No Longer Active Tesfaye Sherman MD Acti ve BACTRIM DS 800-160 MG ORAL TABLET 1 tab by mouth twice daily 201 05/06/28 TRIMETHOPRIM-SULFAMETHOXAZOLE 41792827642 No Longer Active Umer Sherman MD Active BACTRIM DS 800-160 MG ORAL TABLET 1 tab by mouth twice daily 201 05/04/15 TRIMETHOPRIM-SULFAMETHOXAZOLE 14578650475 No Longer Active Umer Sherman MD Active DIFLUCAN 150 MG ORAL TABLET 1 tablet by mouth daily 20 18/09/20 FLUCONAZOLE 13824433479 No Longer Active Tesfaye Sherman MD Acti ve BACTRIM DS 800-160 MG ORAL TABLET 1 tab by mouth twice daily 201 04/13/17 TRIMETHOPRIM-SULFAMETHOXAZOLE 76088080190 No Longer Active Umer Sherman MD Active ROPINIROLE HCL 0.25 MG ORAL TABLET 1 TAB PO Q HS ROPINIROLE HCL 82101845974 Active Tesfaye Sherman MD Active CEFTIN 250 MG ORAL TABLET 1 tablet twice daily x 7 days CEFUROXIME AXETIL 95254904562 No Longer Active Tesfaye Sherman MD Active DIFLUCAN 100 MG ORAL TABLET 1 tablet by mouth every other da y for 2 doses FLUCONAZOLE 50871242325 No Longer Active Tesfaye barron MD Active DIFLUCAN 100 MG ORAL TABLET 1 tablet by mouth daily X 3 DAYS 201 04/09/01 FLUCONAZOLE 20471751572 No Longer Active Rj Lyons tive MIRTAZAPINE 15 MG ORAL TABLET 1/2 tab by mouth at bedtime. 03/13 MIRTAZAPINE 22180629276 No Longer Active Tesfaye Sherman MD Active BACTRIM DS 800-160 MG ORAL TABLET 1 tab by mouth twice daily 201 04/09/01 TRIMETHOPRIM-SULFAMETHOXAZOLE 02361560990 No Longer Active Umer Sherman MD Active PRAMIPEXOLE DIHYDROCHLORIDE 0.125 MG ORAL TABLET take 1 tablet po qhs for restless leg syndrome. PRAMIPEXOLE DIHYDROCHLORI DE 68279077801 No Longer Active Tesfaye Sherman MD Active MAGNESIUM 400 MG ORAL TABLET 1 tab po daily MAGNJim FAGAN 36756992656 Active Chelsea Cardenas APRN Active CETIRIZINE HCL 5 MG ORAL TABLET Take 1 tablet by mouth daily CETIRIZINE HCL 94581700642 No Longer Active Chelsea Cardenas APRN Activ e TRIMETHOPRIM 100 MG ORAL TABLET 1/2 qd TRIM ETHOPRIM 60017337873 No Longer Active Chelsea Cardenas APRN Active BACTRIM DS 800-160 MG ORAL TABLET 1 tab by mouth twice daily 201 04/04/11 TRIMETHOPRIM-SULFAMETHOXAZOLE 24271958126 No Longer Active Umer Sherman MD Active BACTRIM DS 800-160 MG ORAL TABLET 1 tab by mouth twice daily X 10 DAYS TRIMETHOPRIM-SULFAMETHOXAZOLE 34582023721 No Longer Active Tesfaye Sherman MD Active AMOXICILLIN 500 MG ORAL CAPSULE 1 cap by mouth three times a day AMOXICILLIN 78421794326 No Longer Active Adriana Arredondo, A A ctive B-12 1000 MCG ORAL LOZENGE 1 tab po daily CYANO COBALAMIN 94786973093 Active Tesfaye Sherman MD Active VITAMIN D3 2000 UNIT ORAL TABLET 1 daily, for vitamin D deficien cy CHOLECALCIFEROL 09713954263 No Longer Active Tesfaye Sherman MD Active TIZANIDINE HCL 2 MG ORAL TABLET take 1-2 tablet by mo [facility] every day at bedtime at 9pm PRN TIZANIDINE HCL 62519673435 Active Tesfaye hewitt MD Active ZITHROMAX 250 MG ORAL TABLET 2 po today, then 1 po q days 2-5 20 15/02/10 AZITHROMYCIN 15486195998 No Longer Active Tesfaye Sherman MD Active BACTRIM DS 800-160 MG ORAL TABLET 1 tab by mouth twice daily 201 03/03/23 TRIMETHOPRIM-SULFAMETHOXAZOLE 64868651888 No Longer Active Umer Sherman MD Active [facility] NIACIN FLUSH FREE 400-100 MG ORAL CAPSULE 1 daily NIACIN-INOSITOL 56646560834 Active Kayla Cooper MD Activ e DIFLUCAN 150 MG ORAL TABLET 1 qd FLUCONAZOL E 59817790754 No Longer Active Kayla Cooper MD Active FLUTICASONE PROPIONATE 50 MCG/ACT NASAL SUSPENSION 1 spray each nostril twice daily FLUTICASONE PROPIONATE 72271779380 Active D patricia Sherman MD Active LOVASTATIN 20 MG ORAL TABLET Take 1 tablet by mouth daily LOVASTATIN 02090183092 No Longer Active Tesfaye Sherman MD Acti ve MELOXICAM 7.5 MG ORAL TABLET 1 tablet by mouth daily 2 MELOXICAM 04554825110 No Longer Active Tesfaye Sherman MD Acti ve GABAPENTIN 300 MG ORAL CAPSULE Take two tablets by mouth every e vening GABAPENTIN 13360569635 No Longer Active Edith Burch MD A ctive BACLOFEN 10 MG ORAL TABLET Take one tablet by mouth three times a d ay BACLOFEN 91316541117 Active Kayla Cooper MD Active GABAPENTIN 300 MG ORAL CAPSULE Take two tablets by mouth every e vening GABAPENTIN 300 MG ORAL CAPSULE 707577 GABAPENTIN I nactive MELOXICAM 7.5 MG ORAL TABLET 1 tablet by mouth daily 2 MELOXICAM 7.5 MG ORAL TABLET 506354 MELOXICAM Inactive LOVASTATIN 20 MG ORAL TABLET Take 1 tablet by mouth daily LOVASTATIN 20 MG ORAL TABLET 549684 LOVASTATIN Inactive DIFLUCAN 150 MG ORAL TABLET 1 qd DIFLUCAN 150 MG ORAL TABLET 736562 FLUCONAZOLE Inactive VITAMIN D3 2000 UNIT ORAL TABLET 1 daily, for vitamin D deficien cy VITAMIN D3 2000 UNIT ORAL TABLET CHOLECALCIFEROL Inactive AMOXICILLIN 500 MG ORAL CAPSULE 1 cap by mouth three times a day AMOXICILLIN 500 MG ORAL CAPSULE 768641 AMOXICILLIN Inactive BACTRIM DS 800-160 MG ORAL TABLET 1 tab by mouth twice daily X 10 DAYS BACTRIM DS 800-160 MG ORAL TABLET 19830105 TRIMETHOPRIM-SULFAMETHOXAZOLE Inactive TRIMETHOPRIM 100 MG ORAL TABLET 1/2 qd 7 TRIMETHOPRIM 100 MG ORAL TABLET 19830102 TRIMETHOPRIM Inactive CETIRIZINE HCL 5 MG ORAL TABLET Take 1 tablet by mouth daily CETIRIZINE HCL 5 MG ORAL TABLET 6952531 CETIRIZINE HCL Inactive PRAMIPEXOLE DIHYDROCHLORIDE 0.125 MG ORAL TABLET take 1 tablet po qhs for restless leg syndrome. PRAMIPEXOLE DIHYD ROCHLORIDE 0.125 MG ORAL TABLET 178391 PRAMIPEXOLE DIHYDROCHLORIDE Inactive MIRTAZAPINE 15 MG ORAL TABLET 1/2 tab by mouth at bedtime. 03/13 MIRTAZAPINE 15 MG ORAL TABLET 193090 MIRTAZAPINE In active DIFLUCAN 100 MG ORAL TABLET 1 tablet by mouth daily X 3 DAYS 201 04/09/01 DIFLUCAN 100 MG ORAL TABLET 639913 FLUCONAZOLE Inac tive DIFLUCAN 100 MG ORAL TABLET 1 tablet by mouth every other da y for 2 doses DIFLUCAN 100 MG ORAL TABLET 376318 FLUCONAZOLE Inactive CEFTIN 250 MG ORAL TABLET 1 tablet twice daily x 7 days CEFTIN 250 MG ORAL TABLET CEFUROXIME AXETIL Inactive CYMBALTA 30 MG ORAL CAPSULE DELAYED RELEASE PARTICLES 1 cap by mouth daily with 60mg CYMBALTA 30 MG ORAL CAPSULE DELAYED RELEASE PARTICLES 799002 DULOXETINE HCL Inactive CYMBALTA 60 MG ORAL CAPSULE DELAYED RELEASE PARTICLES Take 1 tablet by mouth daily CYMBALTA 60 MG ORAL CAPSULE DELAYED RELEA SE PARTICLES 107551 DULOXETINE HCL Inactive FOSAMAX 70 MG ORAL TABLET 1 po qweek. Take 30min prio r to first food/drink. Avoid lying down x 1 hour. FOSAMAX 70 MG ORAL TA BLET 008561 ALENDRONATE SODIUM Inactive DIFLUCAN 100 MG ORAL TABLET 1 tablet by mouth daily 20 19/08/26 DIFLUCAN 100 MG ORAL TABLET 583684 FLUCONAZOLE Inactive PREDNISONE 20 MG ORAL TABLET 1 tab twice daily for 3 d ay, then one daily for three days PREDNISONE 20 MG ORAL TABLET 987013 PREDNIS ONE Inactive PROAIR HFA 108 (90 BASE) MCG/ACT INHALATION AEROSOL SO LUTION 1 puff every 6 hours as needed PROAIR HFA 108 (90 B ASE) MCG/ACT INHALATION AEROSOL SOLUTION ALBUTEROL SULFATE Inactive MECLIZINE HCL 25 MG ORAL TABLET one tab po qday prn dizziness 20 17/09/06 MECLIZINE HCL 25 MG ORAL TABLET 870647 MECLIZINE HCL Inactive PREDNISONE 20 MG ORAL TABLET 1 tablet by mouth twice d aily for 3 days, then 1 tablet daily for 3 days PREDNISONE 20 MG ORAL TA BLET 106432 PREDNISONE Inactive DIFLUCAN 100 MG ORAL TABLET 1 tablet by mouth daily 20 20/06/06 DIFLUCAN 100 MG ORAL TABLET 999710 FLUCONAZOLE Inactive REPHRESH PRO-B ORAL CAPSULE 1 tablet daily REPHRESH PRO-B ORAL CAPSULE LACTOBACILLUS Inactive RED YEAST RICE 600 MG ORAL CAPSULE 1 pill by mouth daily RED YEAST RICE 600 MG ORAL CAPSULE 795739 RED YEAST RICE EXTRACT In active SUDAFED [...] 20 19/02/09 DIFLUCAN 100 MG ORAL TABLET 314306 FLUCONAZOLE Inactive DIFLUCAN 100 MG ORAL TABLET 1 tablet by mouth daily 20 19/02/09 DIFLUCAN 100 MG ORAL TABLET 211781 FLUCONAZOLE Inactive VENLAFAXINE HCL 75 MG ORAL TABLET 1 am 1/2 at noon 201 07/07/09 VENLAFAXINE HCL 75 MG ORAL TABLET 626651 VENLAFAXINE HCL Inacti ve GABAPENTIN 300 MG ORAL CAPSULE 1 po daily GABAPENTIN 300 MG ORAL CAPSULE 989690 GABAPENTIN Inactive BACTRIM DS 800-160 MG ORAL TABLET 1 tab by mouth twice daily 201 03/03/23 BACTRIM DS 800-160 MG ORAL TABLET 422975 TRIMETHOPRIM-SULFAMETHOXAZOLE Inactive ZITHROMAX 250 MG ORAL TABLET 2 po today, then 1 po q days 2-5 20 15/02/10 ZITHROMAX 250 MG ORAL TABLET 920152 AZITHROMYCIN [place] ctive BACTRIM DS 800-160 MG ORAL TABLET 1 tab by mouth twice daily 201 04/04/11 BACTRIM DS 800-160 MG ORAL TABLET 873305 TRIMETHOPRIM-SULFAMETHOXAZOLE Inactive BACTRIM DS 800-160 MG ORAL TABLET 1 tab by mouth twice daily 201 04/09/01 BACTRIM DS 800-160 MG ORAL TABLET 19830105 TRIMETHOPRIM-SULFAMETHOXAZOLE Inactive BACTRIM DS 800-160 MG ORAL TABLET 1 tab by mouth twice daily 201 04/13/17 BACTRIM DS 800-160 MG ORAL TABLET 757562 TRIMETHOPRIM-SULFAMETHOXAZOLE Inactive DIFLUCAN 150 MG ORAL TABLET [...] 05/06/28 BACTRIM DS 800-160 MG ORAL TABLET 037835 TRIMETHOPRIM-SULFAMETHOXAZOLE Inactive DIFLUCAN 100 MG ORAL TABLET 1 tablet by mouth daily 20 19/03/05 DIFLUCAN 100 MG ORAL TABLET 19760711 FLUCONAZOLE Inactive BACTRIM DS 800-160 MG ORAL TABLET 1 tab by mouth twice daily 201 05/10/28 BACTRIM DS 800-160 MG ORAL TABLET 19830105 TRIMETHOPRIM-SULFAMETHOXAZOLE Inactive AMOXICILLIN 500 MG ORAL CAPSULE 1 cap by mouth three times a day AMOXICILLIN 500 MG ORAL CAPSULE 767205 AMOXICILLIN Inactive ZITHROMAX 250 MG ORAL TABLET 2 po today, then 1 po q days 2-5 20 20/04/28 ZITHROMAX 250 MG ORAL TABLET 147199 AZITHROMYCIN [place] ctive DIFLUCAN 100 MG ORAL TABLET 1 tablet by mouth daily 20 20/05/01 DIFLUCAN 100 MG ORAL TABLET 19760711 FLUCONAZOLE Inactive BACTRIM DS 800-160 MG ORAL TABLET 1 tab by mouth twice daily 201 06/09/02 BACTRIM DS 800-160 MG ORAL TABLET 442894 TRIMETHOPRIM-SULFAMETHOXAZOLE Inactive HYDROCHLOROTHIAZIDE 12.5 MG ORAL CAPSULE 1 pill by mough daily 2 HYDROCHLOROTHIAZIDE 12.5 MG ORAL CAPSULE HYDROCH LOROTHIAZIDE Inactive Advance Directives Directive Description Start Date PERMISSION TO SHARE DISCUSSED WITH PATIENT -- NO DECISION MADE DURABLE POWER OF MEMORY CARE DIRECTOR FOR HEALTHCARE DISCUSED WITH PATIENT -- FULL [...] dipstick Trace-lysed Negative sodium, serum 139 mmol/L 592-319 1035/11/07 carbon dioxide, venous blood 28.4 mmol/L 21.0-32 [...] 5.0-8.5 Encounters Code Encounter Date Provider Facility CPT-56421 [id number] Vst-Est Level IV 17:09:34 Wilmar Sherman MD [facility] CPT-96522 Level 3 Est. Patient 17:27:08 CDT León hernandez APRN [facility] CPT-16336 [id number] Vst-Est Level IV 14:00:[address] Tesfaye Sherman MD [facility]-66709 [id number] Vst-Est Level IV 19:27:[address] Tesfaye Sherman MD [facility]-79605 [id number] Vst-Est Level IV 10:41:41 C DT Tesfaye Sherman MD [facility] CPT-08843 [id number] Vst-Est Level III 09:40:56 CDT Tesfaye Sherman MD [facility] CPT-19948 Level 4 Est. Patient 22:18:12 CDT Tesfaye pearson MD [facility] CPT-24496 Level 4 Est. Patient 14:44:33 VENEER SAMPLE MAKER Tesfaye pearson MD [facility] CPT-74915 Level 4 Est. Patient 13:55:29 VENEER SAMPLE MAKER Tesfaye pearson MD [facility] CPT-13535 Level 4 Est. Patient 17:07:34 VENEER SAMPLE MAKER Tesfaye pearson MD [facility] CPT-70757 Level 4 Est. Patient 13:56:54 CDT Tesfaye pearson MD [facility] CPT-18973 Level 4 Est. Patient 13:24:25 CDT Chelseahumberto sanz APRN [facility] CPT-39073 Level 4 Est. Patient 09:14:56 CDT Tesfaye pearson MD [facility] CPT-95330 Level 4 Est. Patient 18:40:25 VENEER SAMPLE MAKER Tesfaye pearson MD [facility] CPT-84494 Level 4 Est. Patient 18:13:07 VENEER SAMPLE MAKER Tesfaye pearson MD [facility] CPT-00382 Level 3 Est. Patient 10:46:32 CDT Rj cotto DO [facility] CPT-35664 Level 4 Est. Patient 20:19:25 CDT Tesfaye pearson MD [facility] CPT-02959 Level 3 Est. Patient 09:07:31 CDT Tesfaye pearson MD [facility] CPT-02151 Level 4 Est. Patient 13:12:56 CDT Tesfaye pearson MD [facility]-34278 Level 4 Est. Patient 21:24:55 VENEER SAMPLE MAKER Tesfaye pearson MD [facility]-17695 Level 3 Est. Patient 13:45:04 VENEER SAMPLE MAKER Tesfaye pearson MD [facility] CPT-56520 Level 4 Est. Patient 13:50:45 CDT Tesfaye pearson MD [facility] CPT-51275 Level 3 Est. Patient 10:16:10 CDT Tesfaye pearson MD [facility] CPT-35328 Level 3 Est. Patient 16:36:07 VENEER SAMPLE MAKER Kayla jameson MD [facility]-55608 Level 4 Est. Patient 16:00:14 VENEER SAMPLE MAKER Tesfaye pearson MD [facility] CPT-07756 Level 4 Est. Patient 11:02:24 VENEER SAMPLE MAKER Tesfaye pearson MD [facility] CPT-79160 Level 3 Est. Patient 20:21:43 VENEER SAMPLE MAKER Kayla jameson MD [facility] CPT-93631 Level 3 Est. Patient 13:27:28 VENEER SAMPLE MAKER Kayla jameson MD [facility]-08793 Level 4 Est. Patient 15:57:17 VENEER SAMPLE MAKER Tesfaye pearson MD [facility] CPT-75597 Level 3 New Patient 13:25:47 CDT Tesfaye kidd MD [facility] CPT-96133 Level 3 New Patient 17:22:21 CDT Kayla angel MD [facility] Procedures Code Procedure Name Date Entry Date Standard Desc ription CPT-G0439 [facility] Annual Wellness Exam 22:18:11 CDT CPT-90750 Bone Density - XRAY USE ONLY 11:43:58 CDT 2 CPT-56481 Bone Density - XRAY USE ONLY 10:05:16 CDT 2 CPT-07484 Prv Med New Pt 40-64 yrs 18:19:25 CDT 2016 CPT-12234 Foot, right, comp min 3V - XRAY USE ONLY 10:38:34 CDT CPT-G0439 Subsequent Annual Wellness Exam 13:55:04 CDT CPT-G0438 Initial Annual Wellness Exam 11:23:17 CD T CPT-J2930 Solu Medrol 125 mg (Methyl Prednisolone Sodium Succinate) 17:29:12 VENEER SAMPLE MAKER CPT-66044 Abx/Therapy Injection 17:29:11 VENEER SAMPLE MAKER CPT-J2930 Solu Medrol 125 mg (Methyl Prednisolone Sodium Succinate) 12:34:38 VENEER SAMPLE MAKER CPT-J3420 Vitamin B12 1000mcg (Cyanocobalamin) 09:12:55 CDT CPT-J3420 Vitamin B12 1000mcg (Cyanocobalamin) 16:28:06 VENEER SAMPLE MAKER CPT-67680 Venipuncture Draw Fee 08:39:53 CDT CPT-J3420 Vitamin B12 1000mcg (Cyanocobalamin) 08:46:22 CDT CPT-12403 Abx/Therapy Injection 08:46:22 CDT CPT-J3420 Vitamin B12 1000mcg (Cyanocobalamin) 08:41:26 CDT CPT-68596 Abx/Therapy Injection 08:41:26 CDT CPT-J3420 Vitamin B12 1000mcg (Cyanocobalamin) 08:57:15 CDT CPT-96243 Abx/Therapy Injection 08:57:15 CDT CPT-J3420 Vitamin B12 1000mcg (Cyanocobalamin) 10:59:03 CDT CPT-44087 Abx/Therapy Injection 10:59:03 CDT CPT-J3420 Vitamin B12 1000mcg (Cyanocobalamin) 15:05:39 CDT CPT-35765 Abx/Therapy Injection 15:05:39 CDT CPT-J3420 Vitamin B12 1000mcg (Cyanocobalamin) 13:50:45 CDT CPT-J3420 Vitamin B12 1000mcg (Cyanocobalamin) 08:48:55 CDT CPT-73031 Abx/Therapy Injection 08:48:55 CDT CPT-J3420 Vitamin B12 1000mcg (Cyanocobalamin) 09:14:54 CDT CPT-90735 Abx/Therapy Injection 09:14:54 CDT CPT-J3420 Vitamin B12 1000mcg (Cyanocobalamin) 09:06:06 CDT CPT-12434 Abx/Therapy Injection 09:06:06 CDT CPT-J3420 Vitamin B12 1000mcg (Cyanocobalamin) 09:49:14 CDT CPT-56000 Abx/Therapy Injection 09:49:14 CDT CPT-J3420 Vitamin B12 1000mcg (Cyanocobalamin) 09:10:30 VENEER SAMPLE MAKER CPT-89600 Abx/Therapy Injection 09:10:30 VENEER SAMPLE MAKER CPT-J3420 Vitamin B12 1000mcg (Cyanocobalamin) 09:11:07 VENEER SAMPLE MAKER CPT-61660 Abx/Therapy Injection 09:11:07 VENEER SAMPLE MAKER CPT-J3420 Vitamin B12 1000mcg (Cyanocobalamin) 09:57:03 VENEER SAMPLE MAKER CPT-62153 Abx/Therapy Injection 09:57:03 VENEER SAMPLE MAKER CPT-J3420 Vitamin B12 1000mcg (Cyanocobalamin) 09:23:21 VENEER SAMPLE MAKER CPT-88269 Abx/Therapy Injection 09:23:21 VENEER SAMPLE MAKER CPT-03137 Urine Dip (Floor Use Only) 20:21:44 VENEER SAMPLE MAKER 201 02/12/11 CPT-42730 UA Dip Auto (Floor Use Only) 10:04:39 VENEER SAMPLE MAKER 2 CPT-88249 Urine Dip (Floor Use Only) 13:27:28 VENEER SAMPLE MAKER 201 02/12/01 CPT-43425 Bladder Scan 13:27:28 VENEER SAMPLE MAKER CPT-67563 Abd single AP View 14:30:51 VENEER SAMPLE MAKER CPT-OV Office Visit 10:15:43 CDT CPT-06193 Urine Dip (Floor Use Only) 17:22:21 CDT 201 02/09/02 CPT-82513 Bladder Scan 17:22:21 CDT
--- OUTSIDE RECORDS SUMMARY | 2020-05-05 11:33 | XMS REPORT | Clinical Summary ---
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 Tesfaye Sherman MD Long-term (current) drug use Yeast infection 112.9 Inactive Tesfaye Sherman MD Candidiasis of unspecified site Upper respiratory infection 465.9 Inactive Tesfaye Sherman MD Acute upper respiratory infections of un specified site Lower extremity edema, bilateral 782.3 Active 201 07/07/09 León Kodi DIPPING MACHINE OPERATOR Edema Peripheral neuropathy 356.9 Active [...] Wilner Sherman MD Vertigo ICD-780.4 Inactive Tesfaye Shemran MD 201 07/05/07 Body Mass Index 20.0-20.9 Adult Inactiv ijm Shah RMA Dysuria ICD-788.1 Inactive Tesfaye Sherman MD 201 07/05/07 Yeast infection ICD-112.9 Inactive Tesfaye lamb MD Upper respiratory infection ICD-465.9 Inactive Tesfaye Sherman MD Medication List Medication Instructions Start Date Stop Date Generic Name ND Status Provider Patient Instruction AMITRIPTYLINE HCL 10 MG ORAL TABLET 1 tablet nightly by mout h for neuropathy AMITRIPTYLINE HCL 20043231841 Active Tesfaye Sherman MD Active GABAPENTIN 300 MG ORAL CAPSULE 1 po daily GABAP ENTIN 64153099213 No Longer Active Tesfaye Sherman MD Active HYDROCHLOROTHIAZIDE 12.5 MG ORAL CAPSULE 1 pill by mough daily 2 HYDROCHLOROTHIAZIDE 77795426289 No Longer Active Leónkash Mariee DIPPING MACHINE OPERATOR Active VENLAFAXINE HCL 75 MG ORAL TABLET 1 am 1/ at noon 201 07/07/09 VENLAFAXINE HCL 33016351658 No Longer Active León Kodi DIPPING MACHINE OPERATOR Act trent DIFLUCAN 100 MG ORAL TABLET 1 tablet by mouth daily 20 19/02/09 FLUCONAZOLE 50444473141 No Longer Active León Kodi DIPPING MACHINE OPERATOR Active DIFLUCAN 100 MG ORAL TABLET 1 tablet by mouth daily 20 19/02/09 FLUCONAZOLE 37762405312 No Longer Active León Kodi DIPPING MACHINE OPERATOR Active OXYCODONE-ACETAMINOPHEN 5-325 MG ORAL TABLET Take one tablet by mouth every 6 hours 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 Use sparingly OXYCODONE-ACETAMINOPHEN 30210926111 Active Tesfaye villar MD Active CLONAZEPAM 0.5 MG ORAL TABLET Take 1/2 qam, and 1/2 qpm CLONAZEPAM 78066116005 Active Tesfaye Sherman MD Active PRELIEF 340 (65-50) MG (CA-P) ORAL TABLET CALCIUM GLYCEROPHOSPHATE 34603224463 No Longer Active Tesfaye Sherman MD Active SUDAFED 24 HOUR 240 MG ORAL TABLET EXTENDED RELEASE 24 HOUR 1 tab po daily PSEUDOEPHEDRINE HCL 79387124622 No Longer Active Raul Sherman MD Active RED YEAST RICE 600 MG ORAL CAPSULE 1 pill by mouth daily RED YEAST RICE EXTRACT 19114817409 No Longer Active Tesfaye Sherman MD Active REPHRESH PRO-B ORAL CAPSULE 1 tablet daily LACT OBACILLUS 37546337988 No Longer Active Tesfaye Sherman MD Active SUDAFED 12 HOUR 120 MG ORAL TABLET EXTENDED RELEASE 12 HOUR 1 pill twice daily if needed for congestion PSEUDOEPHEDRINE HCL 01242573239 A ctive Tesfaye Sherman MD Active ABILIFY 2 MG ORAL TABLET 1 by mouth daily. MARIA ELENA PIPRAZOLE 36059775772 Active Tesfaye Sherman MD Active CYMBALTA 60 MG ORAL CAPSULE DELAYED RELEASE PARTICLES 1 cap by mouth daily for pain DULOXETINE HCL 54548915804 Active Tesfaye Owusu Active DIFLUCAN 100 MG ORAL TABLET 1 tablet by mouth daily 20 20/06/06 FLUCONAZOLE 19495058629 No Longer Active Tesfaye Sherman MD Acti ve PREDNISONE 20 MG ORAL TABLET 1 tablet by mouth twice d aily for 3 days, then 1 tablet daily for 3 days PREDNISONE 23644574564 No L onger Active Tesfaye Sherman MD Active BACTRIM DS 800-160 MG ORAL TABLET 1 tab by mouth twice daily 201 06/09/02 TRIMETHOPRIM-SULFAMETHOXAZOLE 58516547383 No Longer Active Fer Dominguez Active DIFLUCAN 100 MG ORAL TABLET 1 tablet by mouth daily 20 20/05/01 FLUCONAZOLE 05996643859 No Longer Active Tesfaye Sherman MD Acti ve ZITHROMAX 250 MG ORAL TABLET 2 po today, then 1 po q days 2-5 20 20/04/28 AZITHROMYCIN 78377893094 No Longer Active Tesfaye Sherman MD Active MECLIZINE HCL 25 MG ORAL TABLET one tab po qday prn dizziness 20 17/09/06 MECLIZINE HCL 38998673968 No Longer Active Tesfaye Sherman MD Active PROAIR HFA 108 (90 BASE) MCG/ACT INHALATION AEROSOL SO LUTION 1 puff every 6 hours as needed ALBUTEROL SULFATE 60739532448 No Long er Active Tesfaye Sherman MD Active PREDNISONE 20 MG ORAL TABLET 1 tab twice daily for 3 d ay, then one daily for three days PREDNISONE 74145196309 No Longer Active Tesfaye Sherman MD Active MECLIZINE HCL 25 MG ORAL TABLET one 4 times a day as needed for dizziness MECLIZINE HCL 83556747495 Active Tesfaye Sherman MD Active AMOXICILLIN 500 MG ORAL CAPSULE 1 cap by mouth three times a day AMOXICILLIN 91462008462 No Longer Active Laurence Dominguez Acti ve DIFLUCAN 100 MG ORAL TABLET 1 tablet by mouth daily 20 19/08/26 FLUCONAZOLE 22892116871 No Longer Active Tesfaye Sherman MD Acti ve BACTRIM DS 800-160 MG ORAL TABLET 1 tab by mouth twice daily 201 05/10/28 TRIMETHOPRIM-SULFAMETHOXAZOLE 66469288827 No Longer Active Fer Dominguez Active FOSAMAX 70 MG ORAL TABLET 1 po qweek. Take 30min prio r to first food/drink. Avoid lying down x 1 hour. ALENDRONATE SODIUM 95150128 144 No Longer Active Laurence Dominguez Active CYMBALTA 60 MG ORAL CAPSULE DELAYED RELEASE PARTICLES Take 1 tablet by mouth daily DULOXETINE HCL 41794570052 No Longer Active Edith Burch MD Active CYMBALTA 30 MG ORAL CAPSULE DELAYED RELEASE PARTICLES 1 cap by mouth daily with 60mg DULOXETINE HCL 13617531293 No Longer Active Jordan Burch MD Active FISH OIL 1000 MG ORAL CAPSULE DELAYED RELEASE 1 pill b y mouth daily for cholesterol OMEGA-3 FATTY ACIDS 93689145205 Active Cee Jaffe LPN Active DIFLUCAN 100 MG ORAL TABLET 1 tablet by mouth daily 20 19/03/05 FLUCONAZOLE 83643445599 No Longer Active Tesfaye Sherman MD Acti ve BACTRIM DS 800-160 MG ORAL TABLET 1 tab by mouth twice daily 201 05/06/28 TRIMETHOPRIM-SULFAMETHOXAZOLE 49803127705 No Longer Active Umer Sherman MD Active BACTRIM DS 800-160 MG ORAL TABLET 1 tab by mouth twice daily 201 05/04/15 TRIMETHOPRIM-SULFAMETHOXAZOLE 12426750779 No Longer Active Umer Sherman MD Active DIFLUCAN 150 MG ORAL TABLET 1 tablet by mouth daily 20 18/09/20 FLUCONAZOLE 82033458585 No Longer Active Tesfyae Sherman MD Acti ve BACTRIM DS 800-160 MG ORAL TABLET 1 tab by mouth twice daily 201 04/13/17 TRIMETHOPRIM-SULFAMETHOXAZOLE 40634002708 No Longer Active Umer Sherman MD Active ROPINIROLE HCL 0.25 MG ORAL TABLET 1 TAB PO Q HS ROPINIROLE HCL 06961132898 Active Tesfaye Sherman MD Active CEFTIN 250 MG ORAL TABLET 1 tablet twice daily x 7 days CEFUROXIME AXETIL 59804784445 No Longer Active Tesfaye Sherman MD Active DIFLUCAN 100 MG ORAL TABLET 1 tablet by mouth every other da y for 2 doses FLUCONAZOLE 68371845328 No Longer Active Tesfaye barron MD Active DIFLUCAN 100 MG ORAL TABLET 1 tablet by mouth daily X 3 DAYS 201 04/09/01 FLUCONAZOLE 20256307411 No Longer Active Rj Lyons tive MIRTAZAPINE 15 MG ORAL TABLET 1/2 tab by mouth at bedtime. 03/13 MIRTAZAPINE 59817670402 No Longer Active Tesfaye Sherman MD Active BACTRIM DS 800-160 MG ORAL TABLET 1 tab by mouth twice daily 201 04/09/01 TRIMETHOPRIM-SULFAMETHOXAZOLE 53661989147 No Longer Active Umer Sherman MD Active PRAMIPEXOLE DIHYDROCHLORIDE 0.125 MG ORAL TABLET take 1 tablet po qhs for restless leg syndrome. PRAMIPEXOLE DIHYDROCHLORI DE 71800116075 No Longer Active Tesfaye Sherman MD Active MAGNESIUM 400 MG ORAL TABLET 1 tab po daily MAGNJim FAGAN 12381220707 Active Chelsea Cardenas APRN Active CETIRIZINE HCL 5 MG ORAL TABLET Take 1 tablet by mouth daily CETIRIZINE HCL 28252731769 No Longer Active Chelsea Cardenas APRN Activ e TRIMETHOPRIM 100 MG ORAL TABLET 1/2 qd TRIM ETHOPRIM 82664246227 No Longer Active Chelsea Cardenas APRN Active BACTRIM DS 800-160 MG ORAL TABLET 1 tab by mouth twice daily 201 04/04/11 TRIMETHOPRIM-SULFAMETHOXAZOLE 96380045962 No Longer Active Umer Sherman MD Active BACTRIM DS 800-160 MG ORAL TABLET 1 tab by mouth twice daily X 10 DAYS TRIMETHOPRIM-SULFAMETHOXAZOLE 10589859712 No Longer Active Tesfaye Sherman MD Active AMOXICILLIN 500 MG ORAL CAPSULE 1 cap by mouth three times a day AMOXICILLIN 32620337463 No Longer Active Adriana Arredondo, A A ctive B-12 1000 MCG ORAL LOZENGE 1 tab po daily CYANO COBALAMIN 92701898135 Active Tesfaye Sherman MD Active VITAMIN D3 2000 UNIT ORAL TABLET 1 daily, for vitamin D deficien cy CHOLECALCIFEROL 99418972865 No Longer Active Tesfaye Sherman MD Active TIZANIDINE HCL 2 MG ORAL TABLET take 1-2 tablet by mo [facility] every day at bedtime at 9pm PRN TIZANIDINE HCL 55671416367 Active Tesfaye hewitt MD Active ZITHROMAX 250 MG ORAL TABLET 2 po today, then 1 po q days 2-5 20 15/02/10 AZITHROMYCIN 38863755650 No Longer Active Tesfaye Sherman MD Active BACTRIM DS 800-160 MG ORAL TABLET 1 tab by mouth twice daily 201 03/03/23 TRIMETHOPRIM-SULFAMETHOXAZOLE 65854869490 No Longer Active Umer Sherman MD Active [facility] NIACIN FLUSH FREE 400-100 MG ORAL CAPSULE 1 daily NIACIN-INOSITOL 91313069421 Active Kayla Cooper MD Activ e DIFLUCAN 150 MG ORAL TABLET 1 qd FLUCONAZOL E 74991942800 No Longer Active Kayla Cooper MD Active FLUTICASONE PROPIONATE 50 MCG/ACT NASAL SUSPENSION 1 spray each nostril twice daily FLUTICASONE PROPIONATE 47365302576 Active D patricia Sherman MD Active LOVASTATIN 20 MG ORAL TABLET Take 1 tablet by mouth daily LOVASTATIN 82216906579 No Longer Active Tesfaye Sherman MD Acti ve MELOXICAM 7.5 MG ORAL TABLET 1 tablet by mouth daily 2 MELOXICAM 61470155151 No Longer Active Tesfaye Sherman MD Acti ve GABAPENTIN 300 MG ORAL CAPSULE Take two tablets by mouth every e vening GABAPENTIN 73281943274 No Longer Active Edith Burch MD A ctive BACLOFEN 10 MG ORAL TABLET Take one tablet by mouth three times a d ay BACLOFEN 29516569360 Active Kayla Cooper MD Active GABAPENTIN 300 MG ORAL CAPSULE Take two tablets by mouth every e vening GABAPENTIN 300 MG ORAL CAPSULE 133641 GABAPENTIN I nactive MELOXICAM 7.5 MG ORAL TABLET 1 tablet by mouth daily 2 MELOXICAM 7.5 MG ORAL TABLET 471991 MELOXICAM Inactive LOVASTATIN 20 MG ORAL TABLET Take 1 tablet by mouth daily LOVASTATIN 20 MG ORAL TABLET 593577 LOVASTATIN Inactive DIFLUCAN 150 MG ORAL TABLET 1 qd DIFLUCAN 150 MG ORAL TABLET 359342 FLUCONAZOLE Inactive VITAMIN D3 2000 UNIT ORAL TABLET 1 daily, for vitamin D deficien cy VITAMIN D3 2000 UNIT ORAL TABLET CHOLECALCIFEROL Inactive AMOXICILLIN 500 MG ORAL CAPSULE 1 cap by mouth three times a day AMOXICILLIN 500 MG ORAL CAPSULE 584522 AMOXICILLIN Inactive BACTRIM DS 800-160 MG ORAL TABLET 1 tab by mouth twice daily X 10 DAYS BACTRIM DS 800-160 MG ORAL TABLET 19830105 TRIMETHOPRIM-SULFAMETHOXAZOLE Inactive TRIMETHOPRIM 100 MG ORAL TABLET 1/2 qd 7 TRIMETHOPRIM 100 MG ORAL TABLET 19830102 TRIMETHOPRIM Inactive CETIRIZINE HCL 5 MG ORAL TABLET Take 1 tablet by mouth daily CETIRIZINE HCL 5 MG ORAL TABLET 7645474 CETIRIZINE HCL Inactive PRAMIPEXOLE DIHYDROCHLORIDE 0.125 MG ORAL TABLET take 1 tablet po qhs for restless leg syndrome. PRAMIPEXOLE DIHYD ROCHLORIDE 0.125 MG ORAL TABLET 972827 PRAMIPEXOLE DIHYDROCHLORIDE Inactive MIRTAZAPINE 15 MG ORAL TABLET 1/2 tab by mouth at bedtime. 03/13 MIRTAZAPINE 15 MG ORAL TABLET 741844 MIRTAZAPINE In active DIFLUCAN 100 MG ORAL TABLET 1 tablet by mouth daily X 3 DAYS 201 04/09/01 DIFLUCAN 100 MG ORAL TABLET 178743 FLUCONAZOLE Inac tive DIFLUCAN 100 MG ORAL TABLET 1 tablet by mouth every other da y for 2 doses DIFLUCAN 100 MG ORAL TABLET 817690 FLUCONAZOLE Inactive CEFTIN 250 MG ORAL TABLET 1 tablet twice daily x 7 days CEFTIN 250 MG ORAL TABLET CEFUROXIME AXETIL Inactive CYMBALTA 30 MG ORAL CAPSULE DELAYED RELEASE PARTICLES 1 cap by mouth daily with 60mg CYMBALTA 30 MG ORAL CAPSULE DELAYED RELEASE PARTICLES 404490 DULOXETINE HCL Inactive CYMBALTA 60 MG ORAL CAPSULE DELAYED RELEASE PARTICLES Take 1 tablet by mouth daily CYMBALTA 60 MG ORAL CAPSULE DELAYED RELEA SE PARTICLES 007557 DULOXETINE HCL Inactive FOSAMAX 70 MG ORAL TABLET 1 po qweek. Take 30min prio r to first food/drink. Avoid lying down x 1 hour. FOSAMAX 70 MG ORAL TA BLET 349787 ALENDRONATE SODIUM Inactive DIFLUCAN 100 MG ORAL TABLET 1 tablet by mouth daily 20 19/08/26 DIFLUCAN 100 MG ORAL TABLET 161831 FLUCONAZOLE Inactive PREDNISONE 20 MG ORAL TABLET 1 tab twice daily for 3 d ay, then one daily for three days PREDNISONE 20 MG ORAL TABLET 263562 PREDNIS ONE Inactive PROAIR HFA 108 (90 BASE) MCG/ACT INHALATION AEROSOL SO LUTION 1 puff every 6 hours as needed PROAIR HFA 108 (90 B ASE) MCG/ACT INHALATION AEROSOL SOLUTION ALBUTEROL SULFATE Inactive MECLIZINE HCL 25 MG ORAL TABLET one tab po qday prn dizziness 20 17/09/06 MECLIZINE HCL 25 MG ORAL TABLET 837552 MECLIZINE HCL Inactive PREDNISONE 20 MG ORAL TABLET 1 tablet by mouth twice d aily for 3 days, then 1 tablet daily for 3 days PREDNISONE 20 MG ORAL TA BLET 759138 PREDNISONE Inactive DIFLUCAN 100 MG ORAL TABLET 1 tablet by mouth daily 20 20/06/06 DIFLUCAN 100 MG ORAL TABLET 685234 FLUCONAZOLE Inactive REPHRESH PRO-B ORAL CAPSULE 1 tablet daily REPHRESH PRO-B ORAL CAPSULE LACTOBACILLUS Inactive RED YEAST RICE 600 MG ORAL CAPSULE 1 pill by mouth daily RED YEAST RICE 600 MG ORAL CAPSULE 307504 RED YEAST RICE EXTRACT In active SUDAFED [...] 20 19/02/09 DIFLUCAN 100 MG ORAL TABLET 492808 FLUCONAZOLE Inactive DIFLUCAN 100 MG ORAL TABLET 1 tablet by mouth daily 20 19/02/09 DIFLUCAN 100 MG ORAL TABLET 908879 FLUCONAZOLE Inactive VENLAFAXINE HCL 75 MG ORAL TABLET 1 am 1/2 at noon 201 07/07/09 VENLAFAXINE HCL 75 MG ORAL TABLET 856693 VENLAFAXINE HCL Inacti ve GABAPENTIN 300 MG ORAL CAPSULE 1 po daily GABAPENTIN 300 MG ORAL CAPSULE 434735 GABAPENTIN Inactive BACTRIM DS 800-160 MG ORAL TABLET 1 tab by mouth twice daily 201 03/03/23 BACTRIM DS 800-160 MG ORAL TABLET 673469 TRIMETHOPRIM-SULFAMETHOXAZOLE Inactive ZITHROMAX 250 MG ORAL TABLET 2 po today, then 1 po q days 2-5 20 15/02/10 ZITHROMAX 250 MG ORAL TABLET 021578 AZITHROMYCIN Ephraim ctive BACTRIM DS 800-160 MG ORAL TABLET 1 tab by mouth twice daily 201 04/04/11 BACTRIM DS 800-160 MG ORAL TABLET 128166 TRIMETHOPRIM-SULFAMETHOXAZOLE Inactive BACTRIM DS 800-160 MG ORAL TABLET 1 tab by mouth twice daily 201 04/09/01 BACTRIM DS 800-160 MG ORAL TABLET 19830105 TRIMETHOPRIM-SULFAMETHOXAZOLE Inactive BACTRIM DS 800-160 MG ORAL TABLET 1 tab by mouth twice daily 201 04/13/17 BACTRIM DS 800-160 MG ORAL TABLET 525795 TRIMETHOPRIM-SULFAMETHOXAZOLE Inactive DIFLUCAN 150 MG ORAL TABLET [...] 05/06/28 BACTRIM DS 800-160 MG ORAL TABLET 735812 TRIMETHOPRIM-SULFAMETHOXAZOLE Inactive DIFLUCAN 100 MG ORAL TABLET 1 tablet by mouth daily 20 19/03/05 DIFLUCAN 100 MG ORAL TABLET 19760711 FLUCONAZOLE Inactive BACTRIM DS 800-160 MG ORAL TABLET 1 tab by mouth twice daily 201 05/10/28 BACTRIM DS 800-160 MG ORAL TABLET 19830105 TRIMETHOPRIM-SULFAMETHOXAZOLE Inactive AMOXICILLIN 500 MG ORAL CAPSULE 1 cap by mouth three times a day AMOXICILLIN 500 MG ORAL CAPSULE 854630 AMOXICILLIN Inactive ZITHROMAX 250 MG ORAL TABLET 2 po today, then 1 po q days 2-5 20 20/04/28 ZITHROMAX 250 MG ORAL TABLET 778872 AZITHROMYCIN Ephraim ctive DIFLUCAN 100 MG ORAL TABLET 1 tablet by mouth daily 20 20/05/01 DIFLUCAN 100 MG ORAL TABLET 19760711 FLUCONAZOLE Inactive BACTRIM DS 800-160 MG ORAL TABLET 1 tab by mouth twice daily 201 06/09/02 BACTRIM DS 800-160 MG ORAL TABLET 477773 TRIMETHOPRIM-SULFAMETHOXAZOLE Inactive HYDROCHLOROTHIAZIDE 12.5 MG ORAL CAPSULE 1 pill by mough daily 2 HYDROCHLOROTHIAZIDE 12.5 MG ORAL CAPSULE HYDROCH LOROTHIAZIDE Inactive Advance Directives Directive Description Start Date PERMISSION TO SHARE DISCUSSED WITH PATIENT -- NO DECISION MADE DURABLE POWER OF STRAIN TECHNICIAN FOR HEALTHCARE DISCUSED WITH PATIENT -- FULL [...] Report: UADIP W/MICRO, AUTO - Chemis try RBC, urine, dipstick Trace-intact Negative protein, total urine random Negative mg/dL Negative Lab Report: UADIP W/MICRO, AUTO - Urinal ysis urobilinogen, urine, semiquantitative (dipstick) 0.2 E .U./dL Normal leukocyte esterase, urine, by dipstick Negative Negative nitrite, urine, semiquantitative Negative Neg ative pH, urine, semiquantitative 7.0 5.0-8.5 specific gravity, urine 1.015 1.000-1.030 appearance, urine Clear Clear urine color Yellow Colorless;Lightyellow;St raw;Yellow bilirubin, urine Negative Negative ketones, urine, by test strip Negative Negati ve glucose, urine, semiquantitative Negative Neg ative Lab Report: UADIP W/MICRO, AUTO, Comp. M etabolic Panel, CBC - Chemistry sodium, serum 139 mmol/L 958-589 8278/11/07 carbon dioxide, venous blood 28.4 mmol/L 21.0-32 .0 potassium, serum 3.9 mmol/L 3.5-5.2 chloride, serum 101 mmol/L 98-107 blood glucose 99 mg/dL 65-95 urea nitrogen, blood 13 mg/dL 7-18 creatinine, serum 0.65 mg/dL 0.60-1.30 Estimated Glomerular Filtration Rate (calc) 100 (?) mL/min/1.73m2 = OR > 60 mL/min alanine aminotransferase (SGPT), serum 21 U/L 12-78 aspartate aminotransferase (SGOT), serum 16 U/L 15-37 protein, total urine random Negative mg/dL Negative RBC, urine, dipstick Trace-lysed Negative calcium, serum 9.1 mg/dL 8.5-10.1 bilirubin, serum, [...] Comp. M etabolic Panel, CBC - Urinalysis urine color Yellow Colorless;Lightyellow;St raw;Yellow appearance, urine Clear Clear specific gravity, urine 1.015 1.000-1.030 pH, urine, semiquantitative 5.5 5.0-8.5 urobilinogen, urine, semiquantitative (dipstick) 0.2 E .U./dL Normal ketones, urine, by test strip Negative Negati ve bilirubin, urine Negative Negative glucose, urine, semiquantitative Negative Neg ative leukocyte esterase, urine, by dipstick Negative Negative nitrite, urine, semiquantitative Negative Neg ative Encounters Code Encounter Date Provider Facility CPT-30908 [id number] Vst-Est Level IV 17:09:34 Wilmar Sherman MD [facility] CPT-83665 Level 3 Est. Patient 17:27:08 CDT León hernandez APRN [facility] CPT-03955 [id number] Vst-Est Level IV 14:00:[address] Tesfaye Sherman MD [facility]-56653 [id number] Vst-Est Level IV 19:27:[address] Tesfaye Sherman MD [facility]-45883 [id number] Vst-Est Level IV 10:41:41 C DT Tesfaye Sherman MD [facility] CPT-75894 [id number] Vst-Est Level III 09:40:56 CDT Tesfaye Sherman MD [facility] CPT-96285 Level 4 Est. Patient 22:18:12 CDT Tesfaye pearson MD [facility] CPT-68690 Level 4 Est. Patient 14:44:33 FINANCIAL CONTROLLER Tesfaye pearson MD [facility] CPT-84538 Level 4 Est. Patient 13:55:29 FINANCIAL CONTROLLER Tesfaye pearson MD [facility] CPT-94776 Level 4 Est. Patient 17:07:34 FINANCIAL CONTROLLER Tesfaye pearson MD [facility] CPT-98173 Level 4 Est. Patient 13:56:54 CDT Tesfaye pearson MD [facility] CPT-76013 Level 4 Est. Patient 13:24:25 CDT Chelseahumberto sanz APRN [facility] CPT-12985 Level 4 Est. Patient 09:14:56 CDT Tesfaye pearson MD [facility] CPT-51045 Level 4 Est. Patient 18:40:25 FINANCIAL CONTROLLER Tesfaye pearson MD [facility] CPT-78701 Level 4 Est. Patient 18:13:07 FINANCIAL CONTROLLER Tesfaye pearson MD [facility] CPT-33628 Level 3 Est. Patient 10:46:32 CDT Rj cotto DO [facility] CPT-17481 Level 4 Est. Patient 20:19:25 CDT Tesfaye pearson MD [facility] CPT-39210 Level 3 Est. Patient 09:07:31 CDT Tesfaye pearson MD [facility] CPT-16661 Level 4 Est. Patient 13:12:56 CDT Tesfaye pearson MD [facility]-67895 Level 4 Est. Patient 21:24:55 FINANCIAL CONTROLLER Tesfaye pearson MD [facility]-05293 Level 3 Est. Patient 13:45:04 FINANCIAL CONTROLLER Tesfaye pearson MD [facility] CPT-03171 Level 4 Est. Patient 13:50:45 CDT Tesfaye pearson MD [facility] CPT-66447 Level 3 Est. Patient 10:16:10 CDT Tesfaye pearson MD [facility] CPT-43357 Level 3 Est. Patient 16:36:07 FINANCIAL CONTROLLER Kayla jameson MD [facility]-38793 Level 4 Est. Patient 16:00:14 FINANCIAL CONTROLLER Tesfaye pearson MD [facility] CPT-16386 Level 4 Est. Patient 11:02:24 FINANCIAL CONTROLLER Tesfaye pearson MD [facility] CPT-08480 Level 3 Est. Patient 20:21:43 FINANCIAL CONTROLLER Kayla jameson MD [facility] CPT-75840 Level 3 Est. Patient 13:27:28 FINANCIAL CONTROLLER Kayla jameson MD [facility]-73440 Level 4 Est. Patient 15:57:17 FINANCIAL CONTROLLER Tesfaye pearson MD [facility] CPT-84873 Level 3 New Patient 13:25:47 CDT Tesfaye kidd MD [facility] CPT-20506 Level 3 New Patient 17:22:21 CDT Kayla angel MD [facility] Procedures Code Procedure Name Date Entry Date Standard Desc ription CPT-G0439 [facility] Annual Wellness Exam 22:18:11 CDT CPT-83548 Bone Density - XRAY USE ONLY 11:43:58 CDT 2 CPT-52420 Bone Density - XRAY USE ONLY 10:05:16 CDT 2 CPT-29835 Prv Med New Pt 40-64 yrs 18:19:25 CDT 2016 CPT-12365 Foot, right, comp min 3V - XRAY USE ONLY 10:38:34 CDT CPT-G0439 Subsequent Annual Wellness Exam 13:55:04 CDT CPT-G0438 Initial Annual Wellness Exam 11:23:17 CD T CPT-J2930 Solu Medrol 125 mg (Methyl Prednisolone Sodium Succinate) 17:29:12 FINANCIAL CONTROLLER CPT-57362 Abx/Therapy Injection 17:29:11 FINANCIAL CONTROLLER CPT-J2930 Solu Medrol 125 mg (Methyl Prednisolone Sodium Succinate) 12:34:38 FINANCIAL CONTROLLER CPT-J3420 Vitamin B12 1000mcg (Cyanocobalamin) 09:12:55 CDT CPT-J3420 Vitamin B12 1000mcg (Cyanocobalamin) 16:28:06 FINANCIAL CONTROLLER CPT-70582 Venipuncture Draw Fee 08:39:53 CDT CPT-J3420 Vitamin B12 1000mcg (Cyanocobalamin) 08:46:22 CDT CPT-74172 Abx/Therapy Injection 08:46:22 CDT CPT-J3420 Vitamin B12 1000mcg (Cyanocobalamin) 08:41:26 CDT CPT-70967 Abx/Therapy Injection 08:41:26 CDT CPT-J3420 Vitamin B12 1000mcg (Cyanocobalamin) 08:57:15 CDT CPT-81858 Abx/Therapy Injection 08:57:15 CDT CPT-J3420 Vitamin B12 1000mcg (Cyanocobalamin) 10:59:03 CDT CPT-11127 Abx/Therapy Injection 10:59:03 CDT CPT-J3420 Vitamin B12 1000mcg (Cyanocobalamin) 15:05:39 CDT CPT-75040 Abx/Therapy Injection 15:05:39 CDT CPT-J3420 Vitamin B12 1000mcg (Cyanocobalamin) 13:50:45 CDT CPT-J3420 Vitamin B12 1000mcg (Cyanocobalamin) 08:48:55 CDT CPT-28102 Abx/Therapy Injection 08:48:55 CDT CPT-J3420 Vitamin B12 1000mcg (Cyanocobalamin) 09:14:54 CDT CPT-37526 Abx/Therapy Injection 09:14:54 CDT CPT-J3420 Vitamin B12 1000mcg (Cyanocobalamin) 09:06:06 CDT CPT-98024 Abx/Therapy Injection 09:06:06 CDT CPT-J3420 Vitamin B12 1000mcg (Cyanocobalamin) 09:49:14 CDT CPT-40327 Abx/Therapy Injection 09:49:14 CDT CPT-J3420 Vitamin B12 1000mcg (Cyanocobalamin) 09:10:30 FINANCIAL CONTROLLER CPT-91053 Abx/Therapy Injection 09:10:30 FINANCIAL CONTROLLER CPT-J3420 Vitamin B12 1000mcg (Cyanocobalamin) 09:11:07 FINANCIAL CONTROLLER CPT-91603 Abx/Therapy Injection 09:11:07 FINANCIAL CONTROLLER CPT-J3420 Vitamin B12 1000mcg (Cyanocobalamin) 09:57:03 FINANCIAL CONTROLLER CPT-58191 Abx/Therapy Injection 09:57:03 FINANCIAL CONTROLLER CPT-J3420 Vitamin B12 1000mcg (Cyanocobalamin) 09:23:21 FINANCIAL CONTROLLER CPT-41111 Abx/Therapy Injection 09:23:21 FINANCIAL CONTROLLER CPT-51855 Urine Dip (Floor Use Only) 20:21:44 FINANCIAL CONTROLLER 201 02/12/11 CPT-13402 UA Dip Auto (Floor Use Only) 10:04:39 FINANCIAL CONTROLLER 2 CPT-63585 Urine Dip (Floor Use Only) 13:27:28 FINANCIAL CONTROLLER 201 02/12/01 CPT-74338 Bladder Scan 13:27:28 FINANCIAL CONTROLLER CPT-94252 Abd single AP View 14:30:51 FINANCIAL CONTROLLER CPT-OV Office Visit 10:15:43 CDT CPT-44427 Urine Dip (Floor Use Only) 17:22:21 CDT 201 02/09/02 CPT-76312 Bladder Scan 17:22:21 CDT
--- OUTSIDE RECORDS SUMMARY | 2020-05-05 11:34 | XMS REPORT | Clinical Summary ---
Author Author Talon, Jeri Wood Organization [employer] Address Unknown Phone Unavailable Allergies, Adverse Reactions, [...] MD Routine general medical examination at [facility] acility Sinusitis 461.9 Resolved Tesfaye [...] MD Routine general medical examination at a [facility] acility Body Mass [...] bilateral 782.3 Active 201 07/07/09 León Kodi ACCT EXEC Edema Peripheral neuropathy 356.9 Active Tesfaye lamb [...] by mout h for neuropathy AMITRIPTYLINE HCL 28941845548 Active Tesfaye Sherman MD Active GABAPENTIN 300 MG ORAL CAPSULE 1 po daily GABAP ENTIN 12972488373 No Longer Active Tesfaye Sherman MD Active HYDROCHLOROTHIAZIDE 12.5 MG ORAL CAPSULE 1 pill by mough daily 2 HYDROCHLOROTHIAZIDE 85007688483 No Longer Active Leónkash Mariee ACCT EXEC Active VENLAFAXINE HCL 75 MG ORAL TABLET 1 am 1/ at noon 201 07/07/09 VENLAFAXINE HCL 04395330660 No Longer Active León Kodi ACCT EXEC Act trent DIFLUCAN 100 MG ORAL TABLET 1 tablet by mouth daily 20 19/02/09 FLUCONAZOLE 26983448488 No Longer Active León Kodi ACCT EXEC Active DIFLUCAN 100 MG ORAL TABLET 1 tablet by mouth daily 20 19/02/09 FLUCONAZOLE 43667244956 No Longer Active León Kodi ACCT EXEC Active OXYCODONE-ACETAMINOPHEN 5-325 MG ORAL TABLET Take one tablet by mouth every 6 hours 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 Use sparingly OXYCODONE-ACETAMINOPHEN 70250303171 Active Tesfaye villar MD Active CLONAZEPAM 0.5 MG ORAL TABLET Take 1/2 qam, and 1/2 qpm CLONAZEPAM 31556340676 Active Tesfaye Sherman MD Active PRELIEF 340 (65-50) MG (CA-P) ORAL TABLET CALCIUM GLYCEROPHOSPHATE 26539142596 No Longer Active Tesfaye Sherman MD Active SUDAFED 24 HOUR 240 MG ORAL TABLET EXTENDED RELEASE 24 HOUR 1 tab po daily PSEUDOEPHEDRINE HCL 46598774808 No Longer Active Raul Sherman MD Active RED YEAST RICE 600 MG ORAL CAPSULE 1 pill by mouth daily RED YEAST RICE EXTRACT 14057544822 No Longer Active Tesfaye Sherman MD Active REPHRESH PRO-B ORAL CAPSULE 1 tablet daily LACT OBACILLUS 27465060230 No Longer Active Tesfaye Sherman MD Active SUDAFED 12 HOUR 120 MG ORAL TABLET EXTENDED RELEASE 12 HOUR 1 pill twice daily if needed for congestion PSEUDOEPHEDRINE HCL 84706549093 A ctive Tesfaye Sherman MD Active ABILIFY 2 MG ORAL TABLET 1 by mouth daily. MARIA ELENA PIPRAZOLE 06155749426 Active Tesfaye Sherman MD Active CYMBALTA 60 MG ORAL CAPSULE DELAYED RELEASE PARTICLES 1 cap by mouth daily for pain DULOXETINE HCL 69751766773 Active Tesfaye Owusu Active DIFLUCAN 100 MG ORAL TABLET 1 tablet by mouth daily 20 20/06/06 FLUCONAZOLE 80555706406 No Longer Active Tesfaye Sherman MD Acti ve PREDNISONE 20 MG ORAL TABLET 1 tablet by mouth twice d aily for 3 days, then 1 tablet daily for 3 days PREDNISONE 27051763106 No L onger Active Tesfaye Sherman MD Active BACTRIM DS 800-160 MG ORAL TABLET 1 tab by mouth twice daily 201 06/09/02 TRIMETHOPRIM-SULFAMETHOXAZOLE 52903419095 No Longer Active Fer Dominguez Active DIFLUCAN 100 MG ORAL TABLET 1 tablet by mouth daily 20 20/05/01 FLUCONAZOLE 64911807859 No Longer Active Tesfaye Sherman MD Acti ve ZITHROMAX 250 MG ORAL TABLET 2 po today, then 1 po q days 2-5 20 20/04/28 AZITHROMYCIN 42613847444 No Longer Active Tesfaye Sherman MD Active MECLIZINE HCL 25 MG ORAL TABLET one tab po qday prn dizziness 20 17/09/06 MECLIZINE HCL 82433832682 No Longer Active Tesfaye Sherman MD Active PROAIR HFA 108 (90 BASE) MCG/ACT INHALATION AEROSOL SO LUTION 1 puff every 6 hours as needed ALBUTEROL SULFATE 66514667576 No Long er Active Tesfaye Sherman MD Active PREDNISONE 20 MG ORAL TABLET 1 tab twice daily for 3 d ay, then one daily for three days PREDNISONE 85401169513 No Longer Active Tesfaye Sherman MD Active MECLIZINE HCL 25 MG ORAL TABLET one 4 times a day as needed for dizziness MECLIZINE HCL 97048609302 Active Tesfaye Sherman MD Active AMOXICILLIN 500 MG ORAL CAPSULE 1 cap by mouth three times a day AMOXICILLIN 83479508898 No Longer Active Laurence Dominguez Acti ve DIFLUCAN 100 MG ORAL TABLET 1 tablet by mouth daily 20 19/08/26 FLUCONAZOLE 06131505461 No Longer Active Tesfaye Sherman MD Acti ve BACTRIM DS 800-160 MG ORAL TABLET 1 tab by mouth twice daily 201 05/10/28 TRIMETHOPRIM-SULFAMETHOXAZOLE 62831747556 No Longer Active Fer Dominguez Active FOSAMAX 70 MG ORAL TABLET 1 po qweek. Take 30min prio r to first food/drink. Avoid lying down x 1 hour. ALENDRONATE SODIUM 37055157 144 No Longer Active Laurence Dominguez Active CYMBALTA 60 MG ORAL CAPSULE DELAYED RELEASE PARTICLES Take 1 tablet by mouth daily DULOXETINE HCL 31561584968 No Longer Active Edith Burch MD Active CYMBALTA 30 MG ORAL CAPSULE DELAYED RELEASE PARTICLES 1 cap by mouth daily with 60mg DULOXETINE HCL 25038343388 No Longer Active Jordan Burch MD Active FISH OIL 1000 MG ORAL CAPSULE DELAYED RELEASE 1 pill b y mouth daily for cholesterol OMEGA-3 FATTY ACIDS 10751373500 Active Cee Jaffe LPN Active DIFLUCAN 100 MG ORAL TABLET 1 tablet by mouth daily 20 19/03/05 FLUCONAZOLE 93302514318 No Longer Active Tesfaye Sherman MD Acti ve BACTRIM DS 800-160 MG ORAL TABLET 1 tab by mouth twice daily 201 05/06/28 TRIMETHOPRIM-SULFAMETHOXAZOLE 96342812575 No Longer Active Umer Sherman MD Active BACTRIM DS 800-160 MG ORAL TABLET 1 tab by mouth twice daily 201 05/04/15 TRIMETHOPRIM-SULFAMETHOXAZOLE 34658332759 No Longer Active Umer Sherman MD Active DIFLUCAN 150 MG ORAL TABLET 1 tablet by mouth daily 20 18/09/20 FLUCONAZOLE 04686218430 No Longer Active Tesfaye Sherman MD Acti ve BACTRIM DS 800-160 MG ORAL TABLET 1 tab by mouth twice daily 201 04/13/17 TRIMETHOPRIM-SULFAMETHOXAZOLE 43093274789 No Longer Active Umer Sherman MD Active ROPINIROLE HCL 0.25 MG ORAL TABLET 1 TAB PO Q HS ROPINIROLE HCL 01349001834 Active Tesfaye Sherman MD Active CEFTIN 250 MG ORAL TABLET 1 tablet twice daily x 7 days CEFUROXIME AXETIL 42293025790 No Longer Active Tesfaye Sherman MD Active DIFLUCAN 100 MG ORAL TABLET 1 tablet by mouth every other da y for 2 doses FLUCONAZOLE 34817938671 No Longer Active Tesfaye barron MD Active DIFLUCAN 100 MG ORAL TABLET 1 tablet by mouth daily X 3 DAYS 201 04/09/01 FLUCONAZOLE 52163516443 No Longer Active Rj Lyons tive MIRTAZAPINE 15 MG ORAL TABLET 1/2 tab by mouth at bedtime. 03/13 MIRTAZAPINE 17578971820 No Longer Active Tesfaye Sherman MD Active BACTRIM DS 800-160 MG ORAL TABLET 1 tab by mouth twice daily 201 04/09/01 TRIMETHOPRIM-SULFAMETHOXAZOLE 44583730540 No Longer Active Umer Sherman MD Active PRAMIPEXOLE DIHYDROCHLORIDE 0.125 MG ORAL TABLET take 1 tablet po qhs for restless leg syndrome. PRAMIPEXOLE DIHYDROCHLORI DE 60822373404 No Longer Active Tesfaye Sherman MD Active MAGNESIUM 400 MG ORAL TABLET 1 tab po daily MAGNJim FAGAN 00614866501 Active Chelsea Cardenas APRN Active CETIRIZINE HCL 5 MG ORAL TABLET Take 1 tablet by mouth daily CETIRIZINE HCL 25899318897 No Longer Active Chelsea Cardenas APRN Activ e TRIMETHOPRIM 100 MG ORAL TABLET 1/2 qd TRIM ETHOPRIM 94324429780 No Longer Active Chelsea Cardenas APRN Active BACTRIM DS 800-160 MG ORAL TABLET 1 tab by mouth twice daily 201 04/04/11 TRIMETHOPRIM-SULFAMETHOXAZOLE 26024119463 No Longer Active Umer Sherman MD Active BACTRIM DS 800-160 MG ORAL TABLET 1 tab by mouth twice daily X 10 DAYS TRIMETHOPRIM-SULFAMETHOXAZOLE 55672620290 No Longer Active Tesfaye Sherman MD Active AMOXICILLIN 500 MG ORAL CAPSULE 1 cap by mouth three times a day AMOXICILLIN 41927158899 No Longer Active Adriana Arredondo, A A ctive B-12 1000 MCG ORAL LOZENGE 1 tab po daily CYANO COBALAMIN 37234351176 Active Tesfaye Sherman MD Active VITAMIN D3 2000 UNIT ORAL TABLET 1 daily, for vitamin D deficien cy CHOLECALCIFEROL 71643845727 No Longer Active Tesfaye Sherman MD Active TIZANIDINE HCL 2 MG ORAL TABLET take 1-[address] [facility] every day at bedtime at 9pm PRN TIZANIDINE HCL 48530986200 Active Tesfaye hewitt MD Active ZITHROMAX 250 MG ORAL TABLET 2 po today, then 1 po q days 2-5 20 15/02/10 AZITHROMYCIN 65451987528 No Longer Active Tesfaye Sherman MD Active BACTRIM DS 800-160 MG ORAL TABLET 1 tab by mouth twice daily 201 03/03/23 TRIMETHOPRIM-SULFAMETHOXAZOLE 78320228474 No Longer Active Umer Sherman MD Active [facility] NIACIN FLUSH FREE 400-100 MG ORAL CAPSULE 1 daily NIACIN-INOSITOL 56641458173 Active Kayla Cooper MD Activ e DIFLUCAN 150 MG ORAL TABLET 1 qd FLUCONAZOL E 66965739580 No Longer Active Kayla Cooper MD Active FLUTICASONE PROPIONATE 50 MCG/ACT NASAL SUSPENSION 1 spray each nostril twice daily FLUTICASONE PROPIONATE 92860500468 Active D patricia Sherman MD Active LOVASTATIN 20 MG ORAL TABLET Take 1 tablet by mouth daily LOVASTATIN 24175952109 No Longer Active Tesfaye Sherman MD Acti ve MELOXICAM 7.5 MG ORAL TABLET 1 tablet by mouth daily 2 MELOXICAM 95863006741 No Longer Active Tesfaye Sherman MD Acti ve GABAPENTIN 300 MG ORAL CAPSULE Take two tablets by mouth every e vening GABAPENTIN 05318075407 No Longer Active Edith Burch MD A ctive BACLOFEN 10 MG ORAL TABLET Take one tablet by mouth three times a d ay BACLOFEN 82271397718 Active Kayla Cooper MD Active GABAPENTIN 300 MG ORAL CAPSULE Take two tablets by mouth every e vening GABAPENTIN 300 MG ORAL CAPSULE 153871 GABAPENTIN I nactive MELOXICAM 7.5 MG ORAL TABLET 1 tablet by mouth daily 2 MELOXICAM 7.5 MG ORAL TABLET 074622 MELOXICAM Inactive LOVASTATIN 20 MG ORAL TABLET Take 1 tablet by mouth daily LOVASTATIN 20 MG ORAL TABLET 337576 LOVASTATIN Inactive DIFLUCAN 150 MG ORAL TABLET 1 qd DIFLUCAN 150 MG ORAL TABLET 302570 FLUCONAZOLE Inactive VITAMIN D3 2000 UNIT ORAL TABLET 1 daily, for vitamin D deficien cy VITAMIN D3 2000 UNIT ORAL TABLET CHOLECALCIFEROL Inactive AMOXICILLIN 500 MG ORAL CAPSULE 1 cap by mouth three times a day AMOXICILLIN 500 MG ORAL CAPSULE 487379 AMOXICILLIN Inactive BACTRIM DS 800-160 MG ORAL TABLET 1 tab by mouth twice daily X 10 DAYS BACTRIM DS 800-160 MG ORAL TABLET 19830105 TRIMETHOPRIM-SULFAMETHOXAZOLE Inactive TRIMETHOPRIM 100 MG ORAL TABLET 1/2 qd 7 TRIMETHOPRIM 100 MG ORAL TABLET 19830102 TRIMETHOPRIM Inactive CETIRIZINE HCL 5 MG ORAL TABLET Take 1 tablet by mouth daily CETIRIZINE HCL 5 MG ORAL TABLET 4562273 CETIRIZINE HCL Inactive PRAMIPEXOLE DIHYDROCHLORIDE 0.125 MG ORAL TABLET take 1 tablet po qhs for restless leg syndrome. PRAMIPEXOLE DIHYD ROCHLORIDE 0.125 MG ORAL TABLET 462841 PRAMIPEXOLE DIHYDROCHLORIDE Inactive MIRTAZAPINE 15 MG ORAL TABLET 1/2 tab by mouth at bedtime. 03/13 MIRTAZAPINE 15 MG ORAL TABLET 456126 MIRTAZAPINE In active DIFLUCAN 100 MG ORAL TABLET 1 tablet by mouth daily X 3 DAYS 201 04/09/01 DIFLUCAN 100 MG ORAL TABLET 977752 FLUCONAZOLE Inac tive DIFLUCAN 100 MG ORAL TABLET 1 tablet by mouth every other da y for 2 doses DIFLUCAN 100 MG ORAL TABLET 184718 FLUCONAZOLE Inactive CEFTIN 250 MG ORAL TABLET 1 tablet twice daily x 7 days CEFTIN 250 MG ORAL TABLET CEFUROXIME AXETIL Inactive CYMBALTA 30 MG ORAL CAPSULE DELAYED RELEASE PARTICLES 1 cap by mouth daily with 60mg CYMBALTA 30 MG ORAL CAPSULE DELAYED RELEASE PARTICLES 746089 DULOXETINE HCL Inactive CYMBALTA 60 MG ORAL CAPSULE DELAYED RELEASE PARTICLES Take 1 tablet by mouth daily CYMBALTA 60 MG ORAL CAPSULE DELAYED RELEA SE PARTICLES 645451 DULOXETINE HCL Inactive FOSAMAX 70 MG ORAL TABLET 1 po qweek. Take 30min prio r to first food/drink. Avoid lying down x 1 hour. FOSAMAX 70 MG ORAL TA BLET 557322 ALENDRONATE SODIUM Inactive DIFLUCAN 100 MG ORAL TABLET 1 tablet by mouth daily 20 19/08/26 DIFLUCAN 100 MG ORAL TABLET 041405 FLUCONAZOLE Inactive PREDNISONE 20 MG ORAL TABLET 1 tab twice daily for 3 d ay, then one daily for three days PREDNISONE 20 MG ORAL TABLET 964377 PREDNIS ONE Inactive PROAIR HFA 108 (90 BASE) MCG/ACT INHALATION AEROSOL SO LUTION 1 puff every 6 hours as needed PROAIR HFA 108 (90 B ASE) MCG/ACT INHALATION AEROSOL SOLUTION ALBUTEROL SULFATE Inactive MECLIZINE HCL 25 MG ORAL TABLET one tab po qday prn dizziness 20 17/09/06 MECLIZINE HCL 25 MG ORAL TABLET 258770 MECLIZINE HCL Inactive PREDNISONE 20 MG ORAL TABLET 1 tablet by mouth twice d aily for 3 days, then 1 tablet daily for 3 days PREDNISONE 20 MG ORAL TA BLET 497108 PREDNISONE Inactive DIFLUCAN 100 MG ORAL TABLET 1 tablet by mouth daily 20 20/06/06 DIFLUCAN 100 MG ORAL TABLET 736839 FLUCONAZOLE Inactive REPHRESH PRO-B ORAL CAPSULE 1 tablet daily REPHRESH PRO-B ORAL CAPSULE LACTOBACILLUS Inactive RED YEAST RICE 600 MG ORAL CAPSULE 1 pill by mouth daily RED YEAST RICE 600 MG ORAL CAPSULE 230017 RED YEAST RICE EXTRACT In active SUDAFED [...] 20 19/02/09 DIFLUCAN 100 MG ORAL TABLET 330117 FLUCONAZOLE Inactive DIFLUCAN 100 MG ORAL TABLET 1 tablet by mouth daily 20 19/02/09 DIFLUCAN 100 MG ORAL TABLET 858990 FLUCONAZOLE Inactive VENLAFAXINE HCL 75 MG ORAL TABLET 1 am 1/2 at noon 201 07/07/09 VENLAFAXINE HCL 75 MG ORAL TABLET 854601 VENLAFAXINE HCL Inacti ve GABAPENTIN 300 MG ORAL CAPSULE 1 po daily GABAPENTIN 300 MG ORAL CAPSULE 229795 GABAPENTIN Inactive BACTRIM DS 800-160 MG ORAL TABLET 1 tab by mouth twice daily 201 03/03/23 BACTRIM DS 800-160 MG ORAL TABLET 513759 TRIMETHOPRIM-SULFAMETHOXAZOLE Inactive ZITHROMAX 250 MG ORAL TABLET 2 po today, then 1 po q days 2-5 20 15/02/10 ZITHROMAX 250 MG ORAL TABLET 000819 AZITHROMYCIN Mayela ctive BACTRIM DS 800-160 MG ORAL TABLET 1 tab by mouth twice daily 201 04/04/11 BACTRIM DS 800-160 MG ORAL TABLET 187651 TRIMETHOPRIM-SULFAMETHOXAZOLE Inactive BACTRIM DS 800-160 MG ORAL TABLET 1 tab by mouth twice daily 201 04/09/01 BACTRIM DS 800-160 MG ORAL TABLET 19830105 TRIMETHOPRIM-SULFAMETHOXAZOLE Inactive BACTRIM DS 800-160 MG ORAL TABLET 1 tab by mouth twice daily 201 04/13/17 BACTRIM DS 800-160 MG ORAL TABLET 913719 TRIMETHOPRIM-SULFAMETHOXAZOLE Inactive DIFLUCAN 150 MG ORAL TABLET [...] 05/06/28 BACTRIM DS 800-160 MG ORAL TABLET 116800 TRIMETHOPRIM-SULFAMETHOXAZOLE Inactive DIFLUCAN 100 MG ORAL TABLET 1 tablet by mouth daily 20 19/03/05 DIFLUCAN 100 MG ORAL TABLET 19760711 FLUCONAZOLE Inactive BACTRIM DS 800-160 MG ORAL TABLET 1 tab by mouth twice daily 201 05/10/28 BACTRIM DS 800-160 MG ORAL TABLET 19830105 TRIMETHOPRIM-SULFAMETHOXAZOLE Inactive AMOXICILLIN 500 MG ORAL CAPSULE 1 cap by mouth three times a day AMOXICILLIN 500 MG ORAL CAPSULE 041743 AMOXICILLIN Inactive ZITHROMAX 250 MG ORAL TABLET 2 po today, then 1 po q days 2-5 20 20/04/28 ZITHROMAX 250 MG ORAL TABLET 032949 AZITHROMYCIN Mayela ctive DIFLUCAN 100 MG ORAL TABLET 1 tablet by mouth daily 20 20/05/01 DIFLUCAN 100 MG ORAL TABLET 19760711 FLUCONAZOLE Inactive BACTRIM DS 800-160 MG ORAL TABLET 1 tab by mouth twice daily 201 06/09/02 BACTRIM DS 800-160 MG ORAL TABLET 228471 TRIMETHOPRIM-SULFAMETHOXAZOLE Inactive HYDROCHLOROTHIAZIDE 12.5 MG ORAL CAPSULE 1 pill by mough daily 2 HYDROCHLOROTHIAZIDE 12.5 MG ORAL CAPSULE HYDROCH LOROTHIAZIDE Inactive Advance Directives Directive Description Start Date PERMISSION TO SHARE DISCUSSED WITH PATIENT -- NO DECISION MADE DURABLE POWER OF LEAD BASED PAINT TECHNICIAN FOR HEALTHCARE DISCUSED WITH PATIENT -- [...] CBC - Chemistry sodium, serum 139 mmol/L 754-336 7175/11/07 carbon dioxide, venous blood 28.4 mmol/L 21.0-32 [...] mg/dL 0.00-1.00 RBC, urine, dipstick Trace-lysed Negative protein, total urine random Negative mg/dL Negative Lab Report: UADIP W/MICRO, AUTO, Comp. [...] 1.015 1.000-1.030 pH, urine, semiquantitative 5.5 5.0-8.5 urine color Yellow Colorless;Lightyellow;St raw;Yellow ketones, urine, by test strip Negative Negati ve bilirubin, urine Negative Negative glucose, urine, semiquantitative Negative Neg ative urobilinogen, urine, semiquantitative (dipstick) 0.2 E .U./dL Normal leukocyte esterase, urine, by dipstick Negative Negative nitrite, urine, semiquantitative Negative Neg ative Encounters Code Encounter Date Provider Facility CPT-15343 [id number] Vst-Est Level IV 17:09:34 Wilmar Sherman MD [facility] CPT-94753 Level 3 Est. Patient 17:27:08 CDT León hernandez APRN [facility] CPT-71721 [id number] Vst-Est Level IV 14:00:[address] Tesfaye Sherman MD [facility]-83489 [id number] Vst-Est Level IV 19:27:[address] Tesfaye Sherman MD [facility]-01662 [id number] Vst-Est Level IV 10:41:41 C DT Tesfaye Sherman MD [facility] CPT-98659 [id number] Vst-Est Level III 09:40:56 CDT Tesfaye Sherman MD [facility] CPT-64020 Level 4 Est. Patient 22:18:12 CDT Tesfaye pearson MD [facility] CPT-50123 Level 4 Est. Patient 14:44:33 REAL ESTATE TEACHER Tesfaye pearson MD [facility] CPT-72786 Level 4 Est. Patient 13:55:29 REAL ESTATE TEACHER Tesfaye pearson MD [facility] CPT-16327 Level 4 Est. Patient 17:07:34 REAL ESTATE TEACHER Tesfaye pearson MD [facility] CPT-77925 Level 4 Est. Patient 13:56:54 CDT Tesfaye pearson MD [facility] CPT-63547 Level 4 Est. Patient 13:24:25 CDT Chelseahumberto sanz APRN [facility] CPT-24069 Level 4 Est. Patient 09:14:56 CDT Tesfaye pearson MD [facility] CPT-07574 Level 4 Est. Patient 18:40:25 REAL ESTATE TEACHER Tesfaye pearson MD [facility] CPT-79581 Level 4 Est. Patient 18:13:07 REAL ESTATE TEACHER Tesfaye pearson MD [facility] CPT-90457 Level 3 Est. Patient 10:46:32 CDT Rj cotto DO [facility] CPT-99174 Level 4 Est. Patient 20:19:25 CDT Tesfaye pearson MD [facility] CPT-71026 Level 3 Est. Patient 09:07:31 CDT Tesfaye pearson MD [facility] CPT-07408 Level 4 Est. Patient 13:12:56 CDT Tesfaye pearson MD [facility]-59942 Level 4 Est. Patient 21:24:55 REAL ESTATE TEACHER Tesfaye pearson MD [facility]-64643 Level 3 Est. Patient 13:45:04 REAL ESTATE TEACHER Tesfaye pearson MD [facility] CPT-39835 Level 4 Est. Patient 13:50:45 CDT Tesfaye pearson MD [facility] CPT-28896 Level 3 Est. Patient 10:16:10 CDT Tesfaye pearson MD [facility] CPT-84754 Level 3 Est. Patient 16:36:07 REAL ESTATE TEACHER Kayla jameson MD [facility]-77549 Level 4 Est. Patient 16:00:14 REAL ESTATE TEACHER Tesfaye pearson MD [facility] CPT-80829 Level 4 Est. Patient 11:02:24 REAL ESTATE TEACHER Tesfaye pearson MD [facility] CPT-19460 Level 3 Est. Patient 20:21:43 REAL ESTATE TEACHER Kayla jameson MD [facility] CPT-13979 Level 3 Est. Patient 13:27:28 REAL ESTATE TEACHER Kayla jameson MD [facility]-70711 Level 4 Est. Patient 15:57:17 REAL ESTATE TEACHER Tesfaye pearson MD [facility] CPT-32400 Level 3 New Patient 13:25:47 CDT Tesfaye kidd MD [facility] CPT-03699 Level 3 New Patient 17:22:21 CDT Kayla angel MD [facility] Procedures Code Procedure Name Date Entry Date Standard Desc ription CPT-G0439 [facility] Annual Wellness Exam 22:18:11 CDT CPT-91654 Bone Density - XRAY USE ONLY 11:43:58 CDT 2 CPT-39844 Bone Density - XRAY USE ONLY 10:05:16 CDT 2 CPT-45810 Prv Med New Pt 40-64 yrs 18:19:25 CDT 2016 CPT-91822 Foot, right, comp min 3V - XRAY USE ONLY 10:38:34 CDT CPT-G0439 Subsequent Annual Wellness Exam 13:55:04 CDT CPT-G0438 Initial Annual Wellness Exam 11:23:17 CD T CPT-J2930 Solu Medrol 125 mg (Methyl Prednisolone Sodium Succinate) 17:29:12 REAL ESTATE TEACHER CPT-97540 Abx/Therapy Injection 17:29:11 REAL ESTATE TEACHER CPT-J2930 Solu Medrol 125 mg (Methyl Prednisolone Sodium Succinate) 12:34:38 REAL ESTATE TEACHER CPT-J3420 Vitamin B12 1000mcg (Cyanocobalamin) 09:12:55 CDT CPT-J3420 Vitamin B12 1000mcg (Cyanocobalamin) 16:28:06 REAL ESTATE TEACHER CPT-97898 Venipuncture Draw Fee 08:39:53 CDT CPT-J3420 Vitamin B12 1000mcg (Cyanocobalamin) 08:46:22 CDT CPT-16105 Abx/Therapy Injection 08:46:22 CDT CPT-J3420 Vitamin B12 1000mcg (Cyanocobalamin) 08:41:26 CDT CPT-86167 Abx/Therapy Injection 08:41:26 CDT CPT-J3420 Vitamin B12 1000mcg (Cyanocobalamin) 08:57:15 CDT CPT-70033 Abx/Therapy Injection 08:57:15 CDT CPT-J3420 Vitamin B12 1000mcg (Cyanocobalamin) 10:59:03 CDT CPT-64971 Abx/Therapy Injection 10:59:03 CDT CPT-J3420 Vitamin B12 1000mcg (Cyanocobalamin) 15:05:39 CDT CPT-26512 Abx/Therapy Injection 15:05:39 CDT CPT-J3420 Vitamin B12 1000mcg (Cyanocobalamin) 13:50:45 CDT CPT-J3420 Vitamin B12 1000mcg (Cyanocobalamin) 08:48:55 CDT CPT-11769 Abx/Therapy Injection 08:48:55 CDT CPT-J3420 Vitamin B12 1000mcg (Cyanocobalamin) 09:14:54 CDT CPT-25493 Abx/Therapy Injection 09:14:54 CDT CPT-J3420 Vitamin B12 1000mcg (Cyanocobalamin) 09:06:06 CDT CPT-02616 Abx/Therapy Injection 09:06:06 CDT CPT-J3420 Vitamin B12 1000mcg (Cyanocobalamin) 09:49:14 CDT CPT-06731 Abx/Therapy Injection 09:49:14 CDT CPT-J3420 Vitamin B12 1000mcg (Cyanocobalamin) 09:10:30 REAL ESTATE TEACHER CPT-81749 Abx/Therapy Injection 09:10:30 REAL ESTATE TEACHER CPT-J3420 Vitamin B12 1000mcg (Cyanocobalamin) 09:11:07 REAL ESTATE TEACHER CPT-88924 Abx/Therapy Injection 09:11:07 REAL ESTATE TEACHER CPT-J3420 Vitamin B12 1000mcg (Cyanocobalamin) 09:57:03 REAL ESTATE TEACHER CPT-47407 Abx/Therapy Injection 09:57:03 REAL ESTATE TEACHER CPT-J3420 Vitamin B12 1000mcg (Cyanocobalamin) 09:23:21 REAL ESTATE TEACHER CPT-15896 Abx/Therapy Injection 09:23:21 REAL ESTATE TEACHER CPT-43415 Urine Dip (Floor Use Only) 20:21:44 REAL ESTATE TEACHER 201 02/12/11 CPT-98880 UA Dip Auto (Floor Use Only) 10:04:39 REAL ESTATE TEACHER 2 CPT-72891 Urine Dip (Floor Use Only) 13:27:28 REAL ESTATE TEACHER 201 02/12/01 CPT-14454 Bladder Scan 13:27:28 REAL ESTATE TEACHER CPT-79400 Abd single AP View 14:30:51 REAL ESTATE TEACHER CPT-OV Office Visit 10:15:43 CDT CPT-52457 Urine Dip (Floor Use Only) 17:22:21 CDT 201 02/09/02 CPT-96837 Bladder Scan 17:22:21 CDT
--- OUTSIDE RECORDS SUMMARY | 2020-05-05 11:35 | XMS REPORT | Clinical Summary ---
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 Tesfaye Sherman MD Long-term (current) drug use Yeast infection 112.9 Inactive Tesfaye Sherman MD Candidiasis of unspecified site Upper respiratory infection 465.9 Inactive Tesfaye Sherman MD Acute upper respiratory infections of un specified site Lower extremity edema, bilateral 782.3 Active 201 07/07/09 León Kdoi CORN CUTTER Edema FH Diabetes ICD-V18.0 Inactive Tesfaye Sherman MD [...] 07/05/07 Body Mass Index 20.0-20.9 Adult Eldon VELAZQUEZ Dysuria ICD-788.1 Inactive Tesfaye Sherman MD 201 07/05/07 Yeast infection ICD-112.9 Inactive Tesfaye lamb MD Upper respiratory infection ICD-465.9 Inactive Tesfaye Sherman MD Medication List Medication Instructions Start Date Stop Date Generic Name NDC Status Provider Patient Instruction HYDROCHLOROTHIAZIDE 12.5 MG ORAL CAPSULE 1 pill by mough daily 2 HYDROCHLOROTHIAZIDE 53724833774 Active León Mariee APRN Active VENLAFAXINE HCL 75 MG ORAL TABLET 1 am 1/2 at noon 201 07/07/09 VENLAFAXINE HCL 27651977239 No Longer Active León Mariee APRN Act trent DIFLUCAN 100 MG ORAL TABLET 1 tablet by mouth daily 20 19/02/09 FLUCONAZOLE 33378660531 No Longer Active León Okdi CORN CUTTER Active DIFLUCAN 100 MG ORAL TABLET 1 tablet by mouth daily 20 19/02/09 FLUCONAZOLE 41677262601 No Longer Active Leónkash Mariee CORN CUTTER Active GABAPENTIN 300 MG ORAL CAPSULE 1 po daily GABAPEN TIN 63317194933 Active León Kodi CORN CUTTER Active OXYCODONE-ACETAMINOPHEN 5-325 MG ORAL TABLET Take one tablet by mouth every 6 hours 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 Use sparingly OXYCODONE-ACETAMINOPHEN 61133261658 Active Tesfaye villar MD Active CLONAZEPAM 0.5 MG ORAL TABLET Take 1/2 qam, and 1/2 qpm CLONAZEPAM 77294377421 Active Tesfaye Sherman MD Active PRELIEF 340 (65-50) MG (CA-P) ORAL TABLET CALCIUM GLYCEROPHOSPHATE 07849347650 No Longer Active Tesfaye Sherman MD Active SUDAFED 24 HOUR 240 MG ORAL TABLET EXTENDED RELEASE 24 HOUR 1 tab po daily PSEUDOEPHEDRINE HCL 78341461011 No Longer Active Raul Sherman MD Active RED YEAST RICE 600 MG ORAL CAPSULE 1 pill by mouth daily RED YEAST RICE EXTRACT 45844216637 No Longer Active Tesfaye Sherman MD Active REPHRESH PRO-B ORAL CAPSULE 1 tablet daily LACT OBACILLUS 40649120933 No Longer Active Tesfaye Sherman MD Active SUDAFED 12 HOUR 120 MG ORAL TABLET EXTENDED RELEASE 12 HOUR 1 pill twice daily if needed for congestion PSEUDOEPHEDRINE HCL 51592593654 A ctive Tesfaye Sherman MD Active ABILIFY 2 MG ORAL TABLET 1 by mouth daily. MARIA ELENA PIPRAZOLE 48625600630 Active Tesfaye Sherman MD Active CYMBALTA 60 MG ORAL CAPSULE DELAYED RELEASE PARTICLES 1 cap by mouth daily for pain DULOXETINE HCL 31783680474 Active Tesfaye Owusu Active DIFLUCAN 100 MG ORAL TABLET 1 tablet by mouth daily 20 20/06/06 FLUCONAZOLE 06695845968 No Longer Active Tesfaye Sherman MD Acti ve PREDNISONE 20 MG ORAL TABLET 1 tablet by mouth twice d aily for 3 days, then 1 tablet daily for 3 days PREDNISONE 59583437570 No L onger Active Tesfaye Sheramn MD Active BACTRIM DS 800-160 MG ORAL TABLET 1 tab by mouth twice daily 201 06/09/02 TRIMETHOPRIM-SULFAMETHOXAZOLE 27419774881 No Longer Active A mirna Dominguez Active DIFLUCAN 100 MG ORAL TABLET 1 tablet by mouth daily 20 20/05/01 FLUCONAZOLE 14071714063 No Longer Active Tesfaye Sherman MD Acti ve ZITHROMAX 250 MG ORAL TABLET 2 po today, then 1 po q days 2-5 20 20/04/28 AZITHROMYCIN 99726225549 No Longer Active Tesfaye Sherman MD Active MECLIZINE HCL 25 MG ORAL TABLET one tab po qday prn dizziness 20 17/09/06 MECLIZINE HCL 46663773744 No Longer Active Tesfaye Sherman MD Active PROAIR HFA 108 (90 BASE) MCG/ACT INHALATION AEROSOL SO LUTION 1 puff every 6 hours as needed ALBUTEROL SULFATE 62173509137 No Long er Active Tesfaye Sherman MD Active PREDNISONE 20 MG ORAL TABLET 1 tab twice daily for 3 d ay, then one daily for three days PREDNISONE 59103279813 No Longer Active Tesfaye Sherman MD Active MECLIZINE HCL 25 MG ORAL TABLET one 4 times a day as needed for dizziness MECLIZINE HCL 29529720632 Active Tesfaye Sherman MD Active AMOXICILLIN 500 MG ORAL CAPSULE 1 cap by mouth three times a day AMOXICILLIN 41748573939 No Longer Active Laurenceyohana Lopezduyen Acti ve DIFLUCAN 100 MG ORAL TABLET 1 tablet by mouth daily 19/08/26 FLUCONAZOLE 03264183384 No Longer Active Tesfaye Sherman MD Acti ve BACTRIM DS 800-160 MG ORAL TABLET 1 tab by mouth twice daily 201 05/10/28 TRIMETHOPRIM-SULFAMETHOXAZOLE 49666458818 No Longer Active A mirna Lopezduyen Active FOSAMAX 70 MG ORAL TABLET 1 po qweek. Take 30min prio r to first food/drink. Avoid lying down x 1 hour. ALENDRONATE SODIUM 58577535 144 No Longer Active Laurence Angelica Active CYMBALTA 60 MG ORAL CAPSULE DELAYED RELEASE PARTICLES Take 1 tablet by mouth daily DULOXETINE HCL 45412908107 No Longer Active Edith Burch MD Active CYMBALTA 30 MG ORAL CAPSULE DELAYED RELEASE PARTICLES 1 cap by mouth daily with 60mg DULOXETINE HCL 67545701644 No Longer Active Jordan Burch MD Active FISH OIL 1000 MG ORAL CAPSULE DELAYED RELEASE 1 pill b y mouth daily for cholesterol OMEGA-3 FATTY ACIDS 49560803974 Active Cee Jaffe LPN Active DIFLUCAN 100 MG ORAL TABLET 1 tablet by mouth daily 20 19/03/05 FLUCONAZOLE 60404546032 No Longer Active Tesfaye Sherman MD Acti ve BACTRIM DS 800-160 MG ORAL TABLET 1 tab by mouth twice daily 201 05/06/28 TRIMETHOPRIM-SULFAMETHOXAZOLE 57598836298 No Longer Active Umer Sherman MD Active BACTRIM DS 800-160 MG ORAL TABLET 1 tab by mouth twice daily 201 05/04/15 TRIMETHOPRIM-SULFAMETHOXAZOLE 53195126726 No Longer Active Umer Sherman MD Active DIFLUCAN 150 MG ORAL TABLET 1 tablet by mouth daily 20 18/09/20 FLUCONAZOLE 53387239659 No Longer Active Tesfaye Sherman MD Acti ve BACTRIM DS 800-160 MG ORAL TABLET 1 tab by mouth twice daily 201 04/13/17 TRIMETHOPRIM-SULFAMETHOXAZOLE 50810614014 No Longer Active Umer Sherman MD Active ROPINIROLE HCL 0.25 MG ORAL TABLET 1 TAB PO Q HS ROPINIROLE HCL 85648228828 Active Tesfaye Sherman MD Active CEFTIN 250 MG ORAL TABLET 1 tablet twice daily x 7 days CEFUROXIME AXETIL 78953718235 No Longer Active Tesfaye Sherman MD Active DIFLUCAN 100 MG ORAL TABLET 1 tablet by mouth every other da y for 2 doses FLUCONAZOLE 09025664452 No Longer Active Tesfaye barron MD Active DIFLUCAN 100 MG ORAL TABLET 1 tablet by mouth daily X 3 DAYS 201 04/09/01 FLUCONAZOLE 92605747226 No Longer Active Rj Moss DO Ac tive MIRTAZAPINE 15 MG ORAL TABLET 1/2 tab by mouth at bedtime. 03/13 MIRTAZAPINE 45933536948 No Longer Active Tesfaye Sherman MD Active BACTRIM DS 800-160 MG ORAL TABLET 1 tab by mouth twice daily 201 04/09/01 TRIMETHOPRIM-SULFAMETHOXAZOLE 19646207764 No Longer Active Umer Sherman MD Active PRAMIPEXOLE DIHYDROCHLORIDE 0.125 MG ORAL TABLET take 1 tablet po qhs for restless leg syndrome. PRAMIPEXOLE DIHYDROCHLORI DE 19691034586 No Longer Active Tesfaye Sherman MD Active MAGNESIUM 400 MG ORAL TABLET 1 tab po daily MAGNE SIUM 95476271967 Active Chelsea Cardenas APRN Active CETIRIZINE HCL 5 MG ORAL TABLET Take 1 tablet by mouth daily CETIRIZINE HCL 92077966099 No Longer Active Chelsea Cardenas APRN Activ e TRIMETHOPRIM 100 MG ORAL TABLET 1/2 qd TRIM ETHOPRIM 86302552586 No Longer Active Chelsea Cardenas APRN Active BACTRIM DS 800-160 MG ORAL TABLET 1 tab by mouth twice daily 201 04/04/11 TRIMETHOPRIM-SULFAMETHOXAZOLE 95519967443 No Longer Active Umer Sherman MD Active BACTRIM DS 800-160 MG ORAL TABLET 1 tab by mouth twice daily X 10 DAYS TRIMETHOPRIM-SULFAMETHOXAZOLE 40690422970 No Longer Active Tesfaye Sherman MD Active AMOXICILLIN 500 MG ORAL CAPSULE 1 cap by mouth three times a day AMOXICILLIN 22793880974 No Longer Active Adriana Arredondo, 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 A ctive B-12 1000 MCG ORAL LOZENGE 1 tab po daily CYANO COBALAMIN 35093932743 Active Tesfaye Sherman MD Active VITAMIN D3 2000 UNIT ORAL TABLET 1 daily, for vitamin D deficien cy CHOLECALCIFEROL 62973068969 No Longer Active Tesfaye Sherman MD Active TIZANIDINE HCL 2 MG ORAL TABLET take 1-2 tablet by mo uth every day at bedtime at 9pm PRN TIZANIDINE HCL 41023601787 Active Tesfaye hewitt MD Active ZITHROMAX 250 MG ORAL TABLET 2 po today, then 1 po q days 2-5 20 15/02/10 AZITHROMYCIN 46212500881 No Longer Active Tesfaye Sherman MD Active BACTRIM DS 800-160 MG ORAL TABLET 1 tab by mouth twice daily 201 03/03/23 TRIMETHOPRIM-SULFAMETHOXAZOLE 12042530423 No Longer Active Umer Sherman MD Active [facility] NIACIN FLUSH FREE 400-100 MG ORAL CAPSULE 1 daily NIACIN-INOSITOL 59099240562 Active Kayla Cooper MD Activ e DIFLUCAN 150 MG ORAL TABLET 1 qd FLUCONAZOL E 79460852287 No Longer Active Kayla Cooper MD Active FLUTICASONE PROPIONATE 50 MCG/ACT NASAL SUSPENSION 1 spray each nostril twice daily FLUTICASONE PROPIONATE 02751876198 Active Umer Sherman MD Active LOVASTATIN 20 MG ORAL TABLET Take 1 tablet by mouth daily LOVASTATIN 93009151830 No Longer Active Tesfaye Sherman MD Acti ve MELOXICAM 7.5 MG ORAL TABLET 1 tablet by mouth daily 2 MELOXICAM 44538844753 No Longer Active Tesfaye Sherman MD Acti ve GABAPENTIN 300 MG ORAL CAPSULE Take two tablets by mouth every e vening GABAPENTIN 55660984480 No Longer Active Edtih Burch MD A ctive BACLOFEN 10 MG ORAL TABLET Take one tablet by mouth three times a d ay BACLOFEN 73489543522 Active J John Cooper MD Active GABAPENTIN 300 MG ORAL CAPSULE Take two tablets by mouth every e vening GABAPENTIN 300 MG ORAL CAPSULE 942200 GABAPENTIN I nactive MELOXICAM 7.5 MG ORAL TABLET 1 tablet by mouth daily 2 MELOXICAM 7.5 MG ORAL TABLET 360593 MELOXICAM Inactive LOVASTATIN 20 MG ORAL TABLET Take 1 tablet by mouth daily LOVASTATIN 20 MG ORAL TABLET 343976 LOVASTATIN Inactive DIFLUCAN 150 MG ORAL TABLET 1 qd DIFLUCAN 150 MG ORAL TABLET 376761 FLUCONAZOLE Inactive VITAMIN D3 2000 UNIT ORAL TABLET 1 daily, for vitamin D deficien cy VITAMIN D3 2000 UNIT ORAL TABLET CHOLECALCIFEROL Inactive AMOXICILLIN 500 MG ORAL CAPSULE 1 cap by mouth three times a day AMOXICILLIN 500 MG ORAL CAPSULE 169876 AMOXICILLIN Inactive BACTRIM DS 800-160 MG ORAL TABLET 1 tab by mouth twice daily X 10 DAYS BACTRIM DS 800-160 MG ORAL TABLET 059727 TRIMETHOPRIM-SULFAMETHOXAZOLE Inactive TRIMETHOPRIM 100 MG ORAL TABLET 1/2 qd 7 TRIMETHOPRIM 100 MG ORAL TABLET 864972 TRIMETHOPRIM Inactive CETIRIZINE HCL 5 MG ORAL TABLET Take 1 tablet by mouth daily CETIRIZINE HCL 5 MG ORAL TABLET 6406134 CETIRIZINE HCL Inactive PRAMIPEXOLE DIHYDROCHLORIDE 0.125 MG ORAL TABLET take 1 tablet po qhs for restless leg syndrome. PRAMIPEXOLE DIHYD ROCHLORIDE 0.125 MG ORAL TABLET 447594 PRAMIPEXOLE DIHYDROCHLORIDE Inactive MIRTAZAPINE 15 MG ORAL TABLET 1/2 tab by mouth at bedtime. 03/13 MIRTAZAPINE 15 MG ORAL TABLET 319492 MIRTAZAPINE In active DIFLUCAN 100 MG ORAL TABLET 1 tablet by mouth daily X 3 DAYS 201 04/09/01 DIFLUCAN 100 MG ORAL TABLET 159683 FLUCONAZOLE Inac tive DIFLUCAN 100 MG ORAL TABLET 1 tablet by mouth every other da y for 2 doses DIFLUCAN 100 MG ORAL TABLET 045977 FLUCONAZOLE Inactive CEFTIN 250 MG ORAL TABLET 1 tablet twice daily x 7 days CEFTIN 250 MG ORAL TABLET CEFUROXIME AXETIL Inactive CYMBALTA 30 MG ORAL CAPSULE DELAYED RELEASE PARTICLES 1 cap by mouth daily with 60mg CYMBALTA 30 MG ORAL CAPSULE DELAYED RELEASE PARTICLES 158763 DULOXETINE HCL Inactive CYMBALTA 60 MG ORAL CAPSULE DELAYED RELEASE PARTICLES Take 1 tablet by mouth daily CYMBALTA 60 MG ORAL CAPSULE DELAYED RELEA SE PARTICLES 180051 DULOXETINE HCL Inactive FOSAMAX 70 MG ORAL TABLET 1 po qweek. Take 30min prio r to first food/drink. Avoid lying down x 1 hour. FOSAMAX 70 MG ORAL TA BLET 551254 ALENDRONATE SODIUM Inactive DIFLUCAN 100 MG ORAL TABLET 1 tablet by mouth daily 19/08/26 DIFLUCAN 100 MG ORAL TABLET 368508 FLUCONAZOLE Inactive PREDNISONE 20 MG ORAL TABLET 1 tab twice daily for 3 d ay, then one daily for three days PREDNISONE 20 MG ORAL TABLET 920700 PREDNIS ONE Inactive PROAIR HFA 108 (90 BASE) MCG/ACT INHALATION AEROSOL SO LUTION 1 puff every 6 hours as needed PROAIR HFA 108 (90 B ASE) MCG/ACT INHALATION AEROSOL SOLUTION ALBUTEROL SULFATE Inactive MECLIZINE HCL 25 MG ORAL TABLET one tab po qday prn dizziness 20 17/09/06 MECLIZINE HCL 25 MG ORAL TABLET 165199 MECLIZINE HCL Inactive PREDNISONE 20 MG ORAL TABLET 1 tablet by mouth twice d aily for 3 days, then 1 tablet daily for 3 days PREDNISONE 20 MG ORAL TA BLET 562730 PREDNISONE Inactive DIFLUCAN 100 MG ORAL TABLET 1 tablet by mouth daily 20 20/06/06 DIFLUCAN 100 MG ORAL TABLET 694935 FLUCONAZOLE Inactive REPHRESH PRO-B ORAL CAPSULE 1 tablet daily REPHRESH PRO-B ORAL CAPSULE LACTOBACILLUS Inactive RED YEAST RICE 600 MG ORAL CAPSULE 1 pill by mouth daily RED YEAST RICE 600 MG ORAL CAPSULE 191930 RED YEAST RICE EXTRACT In active SUDAFED [...] 20 19/02/09 DIFLUCAN 100 MG ORAL TABLET 235074 FLUCONAZOLE Inactive DIFLUCAN 100 MG ORAL TABLET 1 tablet by mouth daily 20 19/02/09 DIFLUCAN 100 MG ORAL TABLET 781337 FLUCONAZOLE Inactive VENLAFAXINE HCL 75 MG ORAL TABLET 1 am 1/2 at noon 201 07/07/09 VENLAFAXINE HCL 75 MG ORAL TABLET 610738 VENLAFAXINE HCL Inacti ve BACTRIM DS 800-160 MG ORAL TABLET 1 tab by mouth twice daily 201 03/03/23 BACTRIM DS 800-160 MG ORAL TABLET 336958 TRIMETHOPRIM-SULFAMETHOXAZOLE Inactive ZITHROMAX 250 MG ORAL TABLET 2 po today, then 1 po q days 2-5 20 15/02/10 ZITHROMAX 250 MG ORAL TABLET 973433 AZITHROMYCIN Mayela ctive BACTRIM DS 800-160 MG [...] 05/06/28 BACTRIM DS 800-160 MG ORAL TABLET 074593 TRIMETHOPRIM-SULFAMETHOXAZOLE Inactive DIFLUCAN 100 MG ORAL TABLET 1 tablet by mouth daily 20 19/03/05 DIFLUCAN 100 MG ORAL TABLET 777889 FLUCONAZOLE Inactive BACTRIM DS 800-160 MG ORAL TABLET 1 tab by mouth twice daily 201 05/10/28 BACTRIM DS 800-160 MG ORAL TABLET 398889 TRIMETHOPRIM-SULFAMETHOXAZOLE Inactive AMOXICILLIN 500 MG ORAL CAPSULE 1 cap by mouth three times a day AMOXICILLIN 500 MG ORAL CAPSULE 746050 AMOXICILLIN Inactive ZITHROMAX 250 MG ORAL TABLET 2 po today, then 1 po q days 2-5 20 20/04/28 ZITHROMAX 250 MG ORAL TABLET 331101 AZITHROMYCIN Lucinda ctive DIFLUCAN 100 MG ORAL TABLET 1 tablet by mouth daily 20 20/05/01 DIFLUCAN 100 MG ORAL TABLET 872614 FLUCONAZOLE Inactive BACTRIM DS 800-160 MG ORAL TABLET 1 tab by mouth twice daily 201 06/09/02 BACTRIM DS 800-160 MG ORAL TABLET 252013 TRIMETHOPRIM-SULFAMETHOXAZOLE Inactive Advance Directives Directive Description Start Date PERMISSION TO SHARE DISCUSSED WITH PATIENT -- NO DECISION MADE DURABLE POWER OF INVESTMENT BANKING MANAGER FOR HEALTHCARE DISCUSED WITH PATIENT -- FULL CODE Vital Signs Date Name Value Unit Range Description blood pressure, diastolic 83 mm[Hg] BP lyon [...] CBC - Chemistry sodium, serum 139 mmol/L 353-616 0603/11/07 carbon dioxide, venous blood 28.4 mmol/L 21.0-32 [...] ative Encounters Code Encounter Date Provider Facility CPT-45442 Level 3 Est. Patient 17:27:08 CDT León hernandez [facility] CPT-67951 [id number] Vst-Est Level IV 14:00:[address] Tesfaye Sherman MD [facility] CPT-34698 [id number] Vst-Est Level IV 19:27:[address] Tesfaye Sherman MD [facility] CPT-64661 [id number] Vst-Est Level IV 10:41:41 C BRIDGET Sherman MD [facility]-87857 [id number] Vst-Est Level III 09:40:56 CDT Tesfaye Sherman MD [facility] CPT-64611 Level 4 Est. Patient 22:18:12 CDT Tesfaye pearson MD [facility] CPT-24449 Level 4 Est. Patient 14:44:33 [employer] MACHINE OPERATOR Tesfaye pearson MD [facility] CPT-63244 Level 4 Est. Patient 13:55:29 [employer] MACHINE OPERATOR Tesfaye pearson MD [facility] CPT-72644 Level 4 Est. Patient 17:07:34 [employer] MACHINE OPERATOR Tesfaye pearson MD [facility] CPT-26926 Level 4 Est. Patient 13:56:54 CDT Tesfaye pearson MD [facility] CPT-71120 Level 4 Est. Patient 13:24:25 CDT Chelsea sanz [facility] CPT-94444 Level 4 Est. Patient 09:14:56 CDT Tesfaye pearson MD [facility]-10367 Level 4 Est. Patient 18:40:25 [employer] MACHINE OPERATOR Tesfaye pearson MD [facility]-71523 Level 4 Est. Patient 18:13:07 [employer] MACHINE OPERATOR Tesfaye pearson MD [facility]-05682 Level 3 Est. Patient 10:46:32 CDT jR cotto DO [facility] CPT-38952 Level 4 Est. Patient 20:19:25 CDT Tesfaye pearson MD [facility]-67730 Level 3 Est. Patient 09:07:31 CDT Tesfaye pearson MD [facility]-13100 Level 4 Est. Patient 13:12:56 CDT Tesfaye pearson MD [facility]-72438 Level 4 Est. Patient 21:24:55 [employer] MACHINE OPERATOR Tesfaye pearson MD [facility]-20051 Level 3 Est. Patient 13:45:04 [employer] W[employer] MACHINE OPERATOR Tesfaye pearson MD [facility] CPT-42419 Level 4 Est. Patient 13:50:45 CDT Tesfaye pearson MD [facility] CPT-72688 Level 3 Est. Patient 10:16:10 CDT Tesfaye pearson MD [facility] CPT-61449 Level 3 Est. Patient 16:36:07 [employer] MACHINE OPERATOR Kayla jameson MD [facility]-03137 Level 4 Est. Patient 16:00:14 [employer] W[employer] MACHINE OPERATOR Tesfaye pearson MD [facility]-10332 Level 4 Est. Patient 11:02:24 [employer] MACHINE OPERATOR Tesfaye pearson MD [facility]-95980 Level 3 Est. Patient 20:21:43 [employer] MACHINE OPERATOR Kayla jameson MD [facility]-36785 Level 3 Est. Patient 13:27:28 [employer] MACHINE OPERATOR Kayla jameson MD [facility] CPT-36597 Level 4 Est. Patient 15:57:17 [employer] MACHINE OPERATOR Tesfaye pearson MD [facility] CPT-18923 Level 3 New Patient 13:25:47 CDT Tesfaye kidd MD [facility] CPT-01270 Level 3 New Patient 17:22:21 CDT Kayla angel [facility] Procedures Code Procedure Name Date Entry Date Standard Desc ription CPT-G0439 Subsequent Annual Wellness Exam 22:18:11 CDT CPT-85045 Bone Density - XRAY USE ONLY 11:43:58 CDT 2 CPT-93503 Bone Density - XRAY USE ONLY 10:05:16 CDT 2 CPT-69458 Prv Med New Pt 40-64 yrs 18:19:25 CDT 2016 CPT-24806 Foot, right, comp min 3V - XRAY USE ONLY 10:38:34 CDT CPT-G0439 Subsequent Annual Wellness Exam 13:55:04 CDT CPT-G0438 Initial Annual Wellness Exam 11:23:17 CD T CPT-J2930 Solu Medrol 125 mg (Methyl Prednisolone Sodium Succinate) 17:29:12 [employer] W[employer] MACHINE OPERATOR CPT-93602 Abx/Therapy Injection 17:29:11 [employer] W[employer] MACHINE OPERATOR CPT-J2930 Solu Medrol 125 mg (Methyl Prednisolone Sodium Succinate) 12:34:38 [employer] W[employer] MACHINE OPERATOR CPT-J3420 Vitamin B12 1000mcg (Cyanocobalamin) 09:12:55 CDT CPT-J3420 Vitamin B12 1000mcg (Cyanocobalamin) 16:28:06 [employer]OTH W[employer] MACHINE OPERATOR CPT-78796 Venipuncture Draw Fee 08:39:53 CDT CPT-J3420 Vitamin B12 1000mcg (Cyanocobalamin) 08:46:22 CDT CPT-25062 Abx/Therapy Injection 08:46:22 CDT CPT-J3420 Vitamin B12 1000mcg (Cyanocobalamin) 08:41:26 CDT CPT-92490 Abx/Therapy Injection 08:41:26 CDT CPT-J3420 Vitamin B12 1000mcg (Cyanocobalamin) 08:57:15 CDT CPT-70591 Abx/Therapy Injection 08:57:15 CDT CPT-J3420 Vitamin B12 1000mcg (Cyanocobalamin) 10:59:03 CDT CPT-68080 Abx/Therapy Injection 10:59:03 CDT CPT-J3420 Vitamin B12 1000mcg (Cyanocobalamin) 15:05:39 CDT CPT-53606 Abx/Therapy Injection 15:05:39 CDT CPT-J3420 Vitamin B12 1000mcg (Cyanocobalamin) 13:50:45 CDT CPT-J3420 Vitamin B12 1000mcg (Cyanocobalamin) 08:48:55 CDT CPT-27596 Abx/Therapy Injection 08:48:55 CDT CPT-J3420 Vitamin B12 1000mcg (Cyanocobalamin) 09:14:54 CDT CPT-91556 Abx/Therapy Injection 09:14:54 CDT CPT-J3420 Vitamin B12 1000mcg (Cyanocobalamin) 09:06:06 CDT CPT-02296 Abx/Therapy Injection 09:06:06 CDT CPT-J3420 Vitamin B12 1000mcg (Cyanocobalamin) 09:49:14 CDT CPT-57955 Abx/Therapy Injection 09:49:14 CDT CPT-J3420 Vitamin B12 1000mcg (Cyanocobalamin) 09:10:30 CLOTH WIND[employer] MACHINE OPERATOR CPT-00028 Abx/Therapy Injection 09:10:30 CLOTH WINDER MACHINE OPERATOR CPT-J3420 Vitamin B12 1000mcg (Cyanocobalamin) 09:11:07 CLOTH WINDER MACHINE OPERATOR CPT-52809 Abx/Therapy Injection 09:11:07 CLOTH WINDER MACHINE OPERATOR CPT-J3420 Vitamin B12 1000mcg (Cyanocobalamin) 09:57:03 CLOTH WINDER MACHINE OPERATOR CPT-58933 Abx/Therapy Injection 09:57:03 CLOTH WINDER MACHINE OPERATOR CPT-J3420 Vitamin B12 1000mcg (Cyanocobalamin) 09:23:21 CLOTH WINDER MACHINE OPERATOR CPT-76125 Abx/Therapy Injection 09:23:21 CLOTH WINDER MACHINE OPERATOR CPT-15093 Urine Dip (Floor Use Only) 20:21:44 CLOTH WINDER MACHINE OPERATOR 201 02/12/11 CPT-07694 UA Dip Auto (Floor Use Only) 10:04:39 [employer]OTH WINDER MACHINE OPERATOR 2 CPT-18073 Urine Dip (Floor Use Only) 13:27:28 CLOTH WINDER MACHINE OPERATOR 201 02/12/01 CPT-09188 Bladder Scan 13:27:28 CLOTH WINDER MACHINE OPERATOR CPT-69073 Abd single AP View 14:30:51 CLOTH WINDER MACHINE OPERATOR CPT-OV Office Visit 10:15:43 CDT CPT-92617 Urine Dip (Floor Use Only) 17:22:21 CDT 201 02/09/02 CPT-83609 Bladder Scan 17:22:21 CDT
--- OUTSIDE RECORDS SUMMARY | 2020-05-05 11:35 | XMS REPORT | Clinical Summary ---
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 Tesfaye Sherman MD Long-term (current) drug use Yeast infection 112.9 Inactive Tesfaye Sherman MD Candidiasis of unspecified site Upper respiratory infection 465.9 Inactive Tesfaye Sherman MD Acute upper respiratory infections of un specified site Lower extremity edema, bilateral 782.3 Active 201 07/07/09 León Kodi VISUAL MERCHANDISING DIRECTOR Edema FH Depression ICD-V17.0 Inactive Tesfaye Sherman MD FH Diabetes ICD-V18.0 Inactive Tesfaye Sherman MD 20 22/12/06 WELL WOMAN EXAMINATION ICD-V72.31 Inactive Wilner Sherman MD Preventive health care ICD-V70.0 Inactive Wilner Sherman MD Sinusitis ICD-461.9 Inactive Tesfaye Owusu Dysuria ICD-788.1 Inactive Tesfaye Sherman MD 201 07/05/07 Sinusitis ICD-473.9 Inactive eTsfaye Owusu Dysuria ICD-788.1 Inactive Tesfaye Sherman MD [...] 1 pill by mough daily 2 HYDROCHLOROTHIAZIDE 93544664085 Active León Mariee APRN Active VENLAFAXINE HCL 75 MG ORAL TABLET 1 am 1/2 at noon 201 07/07/09 VENLAFAXINE HCL 67811509880 No Longer Active León Mariee APRN Act trent DIFLUCAN 100 MG ORAL TABLET 1 tablet by mouth daily 20 19/02/09 FLUCONAZOLE 37962825995 No Longer Active León Kodi VISUAL MERCHANDISING DIRECTOR Active DIFLUCAN 100 MG ORAL TABLET 1 tablet by mouth daily 20 19/02/09 FLUCONAZOLE 17267857903 No Longer Active Leónkash Mariee VISUAL MERCHANDISING DIRECTOR Active GABAPENTIN 300 MG ORAL CAPSULE 1 po daily GABAPEN TIN 16764825882 Active León Kodi VISUAL MERCHANDISING DIRECTOR Active OXYCODONE-ACETAMINOPHEN 5-325 MG ORAL TABLET Take one tablet by mouth every 6 hours 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 Use sparingly OXYCODONE-ACETAMINOPHEN 15693953206 Active Tesfaye villar MD Active CLONAZEPAM 0.5 MG ORAL TABLET Take 1/2 qam, and 1/2 qpm CLONAZEPAM 98402668893 Active Tesfaye Sherman MD Active PRELIEF 340 (65-50) MG (CA-P) ORAL TABLET CALCIUM GLYCEROPHOSPHATE 97263813001 No Longer Active Tesfaye Sherman MD Active SUDAFED 24 HOUR 240 MG ORAL TABLET EXTENDED RELEASE 24 HOUR 1 tab po daily PSEUDOEPHEDRINE HCL 07571442215 No Longer Active Raul Sherman MD Active RED YEAST RICE 600 MG ORAL CAPSULE 1 pill by mouth daily RED YEAST RICE EXTRACT 21829058785 No Longer Active Tesfaye Sherman MD Active REPHRESH PRO-B ORAL CAPSULE 1 tablet daily LACT OBACILLUS 26038046692 No Longer Active Tesfaye Sherman MD Active SUDAFED 12 HOUR 120 MG ORAL TABLET EXTENDED RELEASE 12 HOUR 1 pill twice daily if needed for congestion PSEUDOEPHEDRINE HCL 22692727781 A ctive Tesfaye Sherman MD Active ABILIFY 2 MG ORAL TABLET 1 by mouth daily. MARIA ELENA PIPRAZOLE 55515086686 Active Tesfaye Sherman MD Active CYMBALTA 60 MG ORAL CAPSULE DELAYED RELEASE PARTICLES 1 cap by mouth daily for pain DULOXETINE HCL 19308493362 Active Tesfaye Owusu Active DIFLUCAN 100 MG ORAL TABLET 1 tablet by mouth daily 20 20/06/06 FLUCONAZOLE 07020100732 No Longer Active Tesfaye Sherman MD Acti ve PREDNISONE 20 MG ORAL TABLET 1 tablet by mouth twice d aily for 3 days, then 1 tablet daily for 3 days PREDNISONE 75397266087 No L onger Active Tesfaye Sherman MD Active BACTRIM DS 800-160 MG ORAL TABLET 1 tab by mouth twice daily 201 06/09/02 TRIMETHOPRIM-SULFAMETHOXAZOLE 60489904124 No Longer Active A mirna Dominguez Active DIFLUCAN 100 MG ORAL TABLET 1 tablet by mouth daily 20 20/05/01 FLUCONAZOLE 66185097848 No Longer Active Tesfaye Sherman MD Acti ve ZITHROMAX 250 MG ORAL TABLET 2 po today, then 1 po q days 2-5 20 20/04/28 AZITHROMYCIN 59382720133 No Longer Active Tesfaye Sherman MD Active MECLIZINE HCL 25 MG ORAL TABLET one tab po qday prn dizziness 20 17/09/06 MECLIZINE HCL 59279769412 No Longer Active Tesfaye Sherman MD Active PROAIR HFA 108 (90 BASE) MCG/ACT INHALATION AEROSOL SO LUTION 1 puff every 6 hours as needed ALBUTEROL SULFATE 52508489206 No Long er Active Tesfaye Sherman MD Active PREDNISONE 20 MG ORAL TABLET 1 tab twice daily for 3 d ay, then one daily for three days PREDNISONE 14511772206 No Longer Active Tesfaye Sherman MD Active MECLIZINE HCL 25 MG ORAL TABLET one 4 times a day as needed for dizziness MECLIZINE HCL 79099759375 Active Tesfaye Sherman MD Active AMOXICILLIN 500 MG ORAL CAPSULE 1 cap by mouth three times a day AMOXICILLIN 62055203127 No Longer Active Laurenceyohana Lopezduyen Acti ve DIFLUCAN 100 MG ORAL TABLET 1 tablet by mouth daily 19/08/26 FLUCONAZOLE 99401182509 No Longer Active Tesfaye Sherman MD Acti ve BACTRIM DS 800-160 MG ORAL TABLET 1 tab by mouth twice daily 201 05/10/28 TRIMETHOPRIM-SULFAMETHOXAZOLE 48059128164 No Longer Active A mirna Lopezduyen Active FOSAMAX 70 MG ORAL TABLET 1 po qweek. Take 30min prio r to first food/drink. Avoid lying down x 1 hour. ALENDRONATE SODIUM 13204023 144 No Longer Active Laurence Angelica Active CYMBALTA 60 MG ORAL CAPSULE DELAYED RELEASE PARTICLES Take 1 tablet by mouth daily DULOXETINE HCL 66399597048 No Longer Active Edith Burch MD Active CYMBALTA 30 MG ORAL CAPSULE DELAYED RELEASE PARTICLES 1 cap by mouth daily with 60mg DULOXETINE HCL 53896771965 No Longer Active Jordan Burch MD Active FISH OIL 1000 MG ORAL CAPSULE DELAYED RELEASE 1 pill b y mouth daily for cholesterol OMEGA-3 FATTY ACIDS 40578202832 Active Cee Jaffe LPN Active DIFLUCAN 100 MG ORAL TABLET 1 tablet by mouth daily 20 19/03/05 FLUCONAZOLE 34058414773 No Longer Active Tesfaye Sherman MD Acti ve BACTRIM DS 800-160 MG ORAL TABLET 1 tab by mouth twice daily 201 05/06/28 TRIMETHOPRIM-SULFAMETHOXAZOLE 44619374176 No Longer Active Umer Sherman MD Active BACTRIM DS 800-160 MG ORAL TABLET 1 tab by mouth twice daily 201 05/04/15 TRIMETHOPRIM-SULFAMETHOXAZOLE 07353804880 No Longer Active Umer Sherman MD Active DIFLUCAN 150 MG ORAL TABLET 1 tablet by mouth daily 20 18/09/20 FLUCONAZOLE 00704020510 No Longer Active Tesfaye Sherman MD Acti ve BACTRIM DS 800-160 MG ORAL TABLET 1 tab by mouth twice daily 201 04/13/17 TRIMETHOPRIM-SULFAMETHOXAZOLE 26662047032 No Longer Active Umer Sherman MD Active ROPINIROLE HCL 0.25 MG ORAL TABLET 1 TAB PO Q HS ROPINIROLE HCL 26696650137 Active Tesfaye Sherman MD Active CEFTIN 250 MG ORAL TABLET 1 tablet twice daily x 7 days CEFUROXIME AXETIL 28963861265 No Longer Active Tesfaye Sherman MD Active DIFLUCAN 100 MG ORAL TABLET 1 tablet by mouth every other da y for 2 doses FLUCONAZOLE 03082643527 No Longer Active Tesfaye barron MD Active DIFLUCAN 100 MG ORAL TABLET 1 tablet by mouth daily X 3 DAYS 201 04/09/01 FLUCONAZOLE 81403739483 No Longer Active Rj Moss DO Ac tive MIRTAZAPINE 15 MG ORAL TABLET 1/2 tab by mouth at bedtime. 03/13 MIRTAZAPINE 89021185586 No Longer Active Tesfaye Sherman MD Active BACTRIM DS 800-160 MG ORAL TABLET 1 tab by mouth twice daily 201 04/09/01 TRIMETHOPRIM-SULFAMETHOXAZOLE 60170469795 No Longer Active Umer Sherman MD Active PRAMIPEXOLE DIHYDROCHLORIDE 0.125 MG ORAL TABLET take 1 tablet po qhs for restless leg syndrome. PRAMIPEXOLE DIHYDROCHLORI DE 76916548309 No Longer Active Tesfaye Sherman MD Active MAGNESIUM 400 MG ORAL TABLET 1 tab po daily MAGNE SIUM 83490182591 Active Chelsea Cardenas APRN Active CETIRIZINE HCL 5 MG ORAL TABLET Take 1 tablet by mouth daily CETIRIZINE HCL 80926533940 No Longer Active Chelsea Cardenas APRN Activ e TRIMETHOPRIM 100 MG ORAL TABLET 1/2 qd TRIM ETHOPRIM 55422653497 No Longer Active Chelsea Cardenas APRN Active BACTRIM DS 800-160 MG ORAL TABLET 1 tab by mouth twice daily 201 04/04/11 TRIMETHOPRIM-SULFAMETHOXAZOLE 16823656772 No Longer Active Umer Sherman MD Active BACTRIM DS 800-160 MG ORAL TABLET 1 tab by mouth twice daily X 10 DAYS TRIMETHOPRIM-SULFAMETHOXAZOLE 94103365031 No Longer Active Tesfaye Sherman MD Active AMOXICILLIN 500 MG ORAL CAPSULE 1 cap by mouth three times a day AMOXICILLIN 81110570373 No Longer Active Adriana Arredondo, [facility] A ctive B-12 1000 MCG ORAL LOZENGE 1 tab po daily CYANO COBALAMIN 80260057546 Active Tesfaye Sherman MD Active VITAMIN D3 2000 UNIT ORAL TABLET 1 daily, for vitamin D deficien cy CHOLECALCIFEROL 62292395032 No Longer Active Tesfaye Sherman MD Active TIZANIDINE HCL 2 MG ORAL TABLET take 1-2 tablet by mo uth every day at bedtime at 9pm PRN TIZANIDINE HCL 50571767645 Active Tesfaye hewitt MD Active ZITHROMAX 250 MG ORAL TABLET 2 po today, then 1 po q days 2-5 20 15/02/10 AZITHROMYCIN 77201294987 No Longer Active Tesfaye Sherman MD Active BACTRIM DS 800-160 MG ORAL TABLET 1 tab by mouth twice daily 201 03/03/23 TRIMETHOPRIM-SULFAMETHOXAZOLE 21677611864 No Longer Active Umer Sherman MD Active [facility] NIACIN FLUSH FREE 400-100 MG ORAL CAPSULE 1 daily NIACIN-INOSITOL 01729152741 Active Kayla Cooper MD Activ e DIFLUCAN 150 MG ORAL TABLET 1 qd FLUCONAZOL E 46050864793 No Longer Active Kayla Cooper MD Active FLUTICASONE PROPIONATE 50 MCG/ACT NASAL SUSPENSION 1 spray each nostril twice daily FLUTICASONE PROPIONATE 54071456263 Active Umer Sherman MD Active LOVASTATIN 20 MG ORAL TABLET Take 1 tablet by mouth daily LOVASTATIN 78196586827 No Longer Active Tesfaye Sherman MD Acti ve MELOXICAM 7.5 MG ORAL TABLET 1 tablet by mouth daily 2 MELOXICAM 14639162653 No Longer Active Tsefaye Sherman MD Acti ve GABAPENTIN 300 MG ORAL CAPSULE Take two tablets by mouth every e vening GABAPENTIN 31602622826 No Longer Active Edith Burch MD A ctive BACLOFEN 10 MG ORAL TABLET Take one tablet by mouth three times a d ay BACLOFEN 90734595939 Active J John Cooper MD Active GABAPENTIN 300 MG ORAL CAPSULE Take two tablets by mouth every e vening GABAPENTIN 300 MG ORAL CAPSULE 413402 GABAPENTIN I nactive MELOXICAM 7.5 MG ORAL TABLET 1 tablet by mouth daily 2 MELOXICAM 7.5 MG ORAL TABLET 212675 MELOXICAM Inactive LOVASTATIN 20 MG ORAL TABLET Take 1 tablet by mouth daily LOVASTATIN 20 MG ORAL TABLET 600152 LOVASTATIN Inactive DIFLUCAN 150 MG ORAL TABLET 1 qd DIFLUCAN 150 MG ORAL TABLET 224451 FLUCONAZOLE Inactive VITAMIN D3 2000 UNIT ORAL TABLET 1 daily, for vitamin D deficien cy VITAMIN D3 2000 UNIT ORAL TABLET CHOLECALCIFEROL Inactive AMOXICILLIN 500 MG ORAL CAPSULE 1 cap by mouth three times a day AMOXICILLIN 500 MG ORAL CAPSULE 471837 AMOXICILLIN Inactive BACTRIM DS 800-160 MG ORAL TABLET 1 tab by mouth twice daily X 10 DAYS BACTRIM DS 800-160 MG ORAL TABLET 803838 TRIMETHOPRIM-SULFAMETHOXAZOLE Inactive TRIMETHOPRIM 100 MG ORAL TABLET 1/2 qd 7 TRIMETHOPRIM 100 MG ORAL TABLET 825807 TRIMETHOPRIM Inactive CETIRIZINE HCL 5 MG ORAL TABLET Take 1 tablet by mouth daily CETIRIZINE HCL 5 MG ORAL TABLET 3432383 CETIRIZINE HCL Inactive PRAMIPEXOLE DIHYDROCHLORIDE 0.125 MG ORAL TABLET take 1 tablet po qhs for restless leg syndrome. PRAMIPEXOLE DIHYD ROCHLORIDE 0.125 MG ORAL TABLET 156792 PRAMIPEXOLE DIHYDROCHLORIDE Inactive MIRTAZAPINE 15 MG ORAL TABLET 1/2 tab by mouth at bedtime. 03/13 MIRTAZAPINE 15 MG ORAL TABLET 281023 MIRTAZAPINE In active DIFLUCAN 100 MG ORAL TABLET 1 tablet by mouth daily X 3 DAYS 201 04/09/01 DIFLUCAN 100 MG ORAL TABLET 995276 FLUCONAZOLE Inac tive DIFLUCAN 100 MG ORAL TABLET 1 tablet by mouth every other da y for 2 doses DIFLUCAN 100 MG ORAL TABLET 008276 FLUCONAZOLE Inactive CEFTIN 250 MG ORAL TABLET 1 tablet twice daily x 7 days CEFTIN 250 MG ORAL TABLET CEFUROXIME AXETIL Inactive CYMBALTA 30 MG ORAL CAPSULE DELAYED RELEASE PARTICLES 1 cap by mouth daily with 60mg CYMBALTA 30 MG ORAL CAPSULE DELAYED RELEASE PARTICLES 558851 DULOXETINE HCL Inactive CYMBALTA 60 MG ORAL CAPSULE DELAYED RELEASE PARTICLES Take 1 tablet by mouth daily CYMBALTA 60 MG ORAL CAPSULE DELAYED RELEA SE PARTICLES 603548 DULOXETINE HCL Inactive FOSAMAX 70 MG ORAL TABLET 1 po qweek. Take 30min prio r to first food/drink. Avoid lying down x 1 hour. FOSAMAX 70 MG ORAL TA BLET 235054 ALENDRONATE SODIUM Inactive DIFLUCAN 100 MG ORAL TABLET 1 tablet by mouth daily 19/08/26 DIFLUCAN 100 MG ORAL TABLET 776774 FLUCONAZOLE Inactive PREDNISONE 20 MG ORAL TABLET 1 tab twice daily for 3 d ay, then one daily for three days PREDNISONE 20 MG ORAL TABLET 900239 PREDNIS ONE Inactive PROAIR HFA 108 (90 BASE) MCG/ACT INHALATION AEROSOL SO LUTION 1 puff every 6 hours as needed PROAIR HFA 108 (90 B ASE) MCG/ACT INHALATION AEROSOL SOLUTION ALBUTEROL SULFATE Inactive MECLIZINE HCL 25 MG ORAL TABLET one tab po qday prn dizziness 20 17/09/06 MECLIZINE HCL 25 MG ORAL TABLET 879791 MECLIZINE HCL Inactive PREDNISONE 20 MG ORAL TABLET 1 tablet by mouth twice d aily for 3 days, then 1 tablet daily for 3 days PREDNISONE 20 MG ORAL TA BLET 461103 PREDNISONE Inactive DIFLUCAN 100 MG ORAL TABLET 1 tablet by mouth daily 20 20/06/06 DIFLUCAN 100 MG ORAL TABLET 123998 FLUCONAZOLE Inactive REPHRESH PRO-B ORAL CAPSULE 1 tablet daily REPHRESH PRO-B ORAL CAPSULE LACTOBACILLUS Inactive RED YEAST RICE 600 MG ORAL CAPSULE 1 pill by mouth daily RED YEAST RICE 600 MG ORAL CAPSULE 945060 RED YEAST RICE EXTRACT In active SUDAFED [...] 20 19/02/09 DIFLUCAN 100 MG ORAL TABLET 084244 FLUCONAZOLE Inactive DIFLUCAN 100 MG ORAL TABLET 1 tablet by mouth daily 20 19/02/09 DIFLUCAN 100 MG ORAL TABLET 862850 FLUCONAZOLE Inactive VENLAFAXINE HCL 75 MG ORAL TABLET 1 am 1/2 at noon 201 07/07/09 VENLAFAXINE HCL 75 MG ORAL TABLET 637625 VENLAFAXINE HCL Inacti ve BACTRIM DS 800-160 MG ORAL TABLET 1 tab by mouth twice daily 201 03/03/23 BACTRIM DS 800-160 MG ORAL TABLET 136815 TRIMETHOPRIM-SULFAMETHOXAZOLE Inactive ZITHROMAX 250 MG ORAL TABLET 2 po today, then 1 po q days 2-5 20 15/02/10 ZITHROMAX 250 MG ORAL TABLET 580514 AZITHROMYCIN Mayela ctive BACTRIM DS 800-160 MG [...] 05/06/28 BACTRIM DS 800-160 MG ORAL TABLET 036851 TRIMETHOPRIM-SULFAMETHOXAZOLE Inactive DIFLUCAN 100 MG ORAL TABLET 1 tablet by mouth daily 20 19/03/05 DIFLUCAN 100 MG ORAL TABLET 847311 FLUCONAZOLE Inactive BACTRIM DS 800-160 MG ORAL TABLET 1 tab by mouth twice daily 201 05/10/28 BACTRIM DS 800-160 MG ORAL TABLET 249024 TRIMETHOPRIM-SULFAMETHOXAZOLE Inactive AMOXICILLIN 500 MG ORAL CAPSULE 1 cap by mouth three times a day AMOXICILLIN 500 MG ORAL CAPSULE 420222 AMOXICILLIN Inactive ZITHROMAX 250 MG ORAL TABLET 2 po today, then 1 po q days 2-5 20 20/04/28 ZITHROMAX 250 MG ORAL TABLET 627037 AZITHROMYCIN [place] ctive DIFLUCAN 100 MG ORAL TABLET 1 tablet by mouth daily 20 20/05/01 DIFLUCAN 100 MG ORAL TABLET 476492 FLUCONAZOLE Inactive BACTRIM DS 800-160 MG ORAL TABLET 1 tab by mouth twice daily 201 06/09/02 BACTRIM DS 800-160 MG ORAL TABLET 568013 TRIMETHOPRIM-SULFAMETHOXAZOLE Inactive Advance Directives Directive Description Start Date PERMISSION TO SHARE DISCUSSED WITH PATIENT -- NO DECISION MADE DURABLE POWER OF SCANNING MANAGER FOR HEALTHCARE DISCUSED WITH PATIENT -- [...] dipstick Trace-lysed Negative sodium, serum 139 mmol/L 558-410 6870/11/07 carbon dioxide, venous blood 28.4 mmol/L 21.0-32 [...] 5.0-8.5 Encounters Code Encounter Date Provider Facility CPT-53799 Level 3 Est. Patient 17:27:08 CDT León hernandez [facility] CPT-36954 51336-Ppo Vst-Est Level IV 14:00:[address] Tesfaye Sherman MD [facility]-00168 [id number] Vst-Est Level IV 19:27:[address] Tesfaye Sherman MD [facility]-47258 [id number] Vst-Est Level IV 10:41:41 C BRIDGET Sherman MD [facility]-58323 [id number] Vst-Est Level III 09:40:56 CDT Tesfaye Sherman MD [facility] CPT-23923 Level 4 Est. Patient 22:18:12 CDT Tesfaye pearson MD [facility] CPT-03000 Level 4 Est. Patient 14:44:33 ELECTRICAL AND INSTRUMENT TECHNICIAN Tesfaye pearson MD [facility] CPT-76328 Level 4 Est. Patient 13:55:29 ELECTRICAL AND INSTRUMENT TECHNICIAN Tesfaye pearson MD [facility] CPT-56132 Level 4 Est. Patient 17:07:34 ELECTRICAL AND INSTRUMENT TECHNICIAN Tesfaye pearson MD [facility] CPT-63008 Level 4 Est. Patient 13:56:54 CDT Tesfaye pearson MD [facility] CPT-78194 Level 4 Est. Patient 13:24:25 CDT Chelsea sanz [facility] CPT-83257 Level 4 Est. Patient 09:14:56 CDT Tesfaye pearson MD [facility]-99197 Level 4 Est. Patient 18:40:25 ELECTRICAL AND INSTRUMENT TECHNICIAN Tesfaye pearson MD [facility]-94868 Level 4 Est. Patient 18:13:07 ELECTRICAL AND INSTRUMENT TECHNICIAN Tesfaye pearson MD [facility]-98861 Level 3 Est. Patient 10:46:32 CDT Rj cotto DO [facility] CPT-06453 Level 4 Est. Patient 20:19:25 CDT Tesfaye pearson MD [facility]-98176 Level 3 Est. Patient 09:07:31 CDT Tesfaye pearson MD [facility]-82534 Level 4 Est. Patient 13:12:56 CDT Tesfaye pearson MD [facility]-44711 Level 4 Est. Patient 21:24:55 ELECTRICAL AND INSTRUMENT TECHNICIAN Tesfaye pearson MD [facility]-38616 Level 3 Est. Patient 13:45:04 ELECTRICAL AND INSTRUMENT TECHNICIAN Tesfaye pearson MD [facility] CPT-06220 Level 4 Est. Patient 13:50:45 CDT Tesfaye pearson MD [facility] CPT-34639 Level 3 Est. Patient 10:16:10 CDT Tesfaye pearson MD [facility] CPT-57437 Level 3 Est. Patient 16:36:07 ELECTRICAL AND INSTRUMENT TECHNICIAN Kayla jameson MD [facility]-39839 Level 4 Est. Patient 16:00:14 ELECTRICAL AND INSTRUMENT TECHNICIAN Tesfaye pearson MD [facility]-73533 Level 4 Est. Patient 11:02:24 ELECTRICAL AND INSTRUMENT TECHNICIAN Tesfaye pearson MD [facility]-95946 Level 3 Est. Patient 20:21:43 ELECTRICAL AND INSTRUMENT TECHNICIAN Kayla jameson MD [facility]-82053 Level 3 Est. Patient 13:27:28 ELECTRICAL AND INSTRUMENT TECHNICIAN Kayla jameson MD [facility] CPT-31702 Level 4 Est. Patient 15:57:17 ELECTRICAL AND INSTRUMENT TECHNICIAN Tesfaye pearson MD [facility] CPT-37147 Level 3 New Patient 13:25:47 CDT Tesfaye kidd MD [facility] CPT-22193 Level 3 New Patient 17:22:21 CDT Kalya angel [facility] Procedures Code Procedure Name Date Entry Date Standard Desc ription CPT-G0439 Subsequent Annual Wellness Exam 22:18:11 CDT CPT-89654 Bone Density - XRAY USE ONLY 11:43:58 CDT 2 CPT-24123 Bone Density - XRAY USE ONLY 10:05:16 CDT 2 CPT-88729 Prv Med New Pt 40-64 yrs 18:19:25 CDT 2016 CPT-18855 Foot, right, comp min 3V - XRAY USE ONLY 10:38:34 CDT CPT-G0439 Subsequent Annual Wellness Exam 13:55:04 CDT CPT-G0438 Initial Annual Wellness Exam 11:23:17 CD T CPT-J2930 Solu Medrol 125 mg (Methyl Prednisolone Sodium Succinate) 17:29:12 ELECTRICAL AND INSTRUMENT TECHNICIAN CPT-43445 Abx/Therapy Injection 17:29:11 ELECTRICAL AND INSTRUMENT TECHNICIAN CPT-J2930 Solu Medrol 125 mg (Methyl Prednisolone Sodium Succinate) 12:34:38 ELECTRICAL AND INSTRUMENT TECHNICIAN CPT-J3420 Vitamin B12 1000mcg (Cyanocobalamin) 09:12:55 CDT CPT-J3420 Vitamin B12 1000mcg (Cyanocobalamin) 16:28:06 ELECTRICAL AND INSTRUMENT TECHNICIAN CPT-29826 Venipuncture Draw Fee 08:39:53 CDT CPT-J3420 Vitamin B12 1000mcg (Cyanocobalamin) 08:46:22 CDT CPT-27903 Abx/Therapy Injection 08:46:22 CDT CPT-J3420 Vitamin B12 1000mcg (Cyanocobalamin) 08:41:26 CDT CPT-78173 Abx/Therapy Injection 08:41:26 CDT CPT-J3420 Vitamin B12 1000mcg (Cyanocobalamin) 08:57:15 CDT CPT-41135 Abx/Therapy Injection 08:57:15 CDT CPT-J3420 Vitamin B12 1000mcg (Cyanocobalamin) 10:59:03 CDT CPT-35164 Abx/Therapy Injection 10:59:03 CDT CPT-J3420 Vitamin B12 1000mcg (Cyanocobalamin) 15:05:39 CDT CPT-64038 Abx/Therapy Injection 15:05:39 CDT CPT-J3420 Vitamin B12 1000mcg (Cyanocobalamin) 13:50:45 CDT CPT-J3420 Vitamin B12 1000mcg (Cyanocobalamin) 08:48:55 CDT CPT-21541 Abx/Therapy Injection 08:48:55 CDT CPT-J3420 Vitamin B12 1000mcg (Cyanocobalamin) 09:14:54 CDT CPT-78403 Abx/Therapy Injection 09:14:54 CDT CPT-J3420 Vitamin B12 1000mcg (Cyanocobalamin) 09:06:06 CDT CPT-33191 Abx/Therapy Injection 09:06:06 CDT CPT-J3420 Vitamin B12 1000mcg (Cyanocobalamin) 09:49:14 CDT CPT-34775 Abx/Therapy Injection 09:49:14 CDT CPT-J3420 Vitamin B12 1000mcg (Cyanocobalamin) 09:10:30 ELECTRICAL AND INSTRUMENT TECHNICIAN CPT-27771 Abx/Therapy Injection 09:10:30 ELECTRICAL AND INSTRUMENT TECHNICIAN CPT-J3420 Vitamin B12 1000mcg (Cyanocobalamin) 09:11:07 ELECTRICAL AND INSTRUMENT TECHNICIAN CPT-43777 Abx/Therapy Injection 09:11:07 ELECTRICAL AND INSTRUMENT TECHNICIAN CPT-J3420 Vitamin B12 1000mcg (Cyanocobalamin) 09:57:03 ELECTRICAL AND INSTRUMENT TECHNICIAN CPT-27333 Abx/Therapy Injection 09:57:03 ELECTRICAL AND INSTRUMENT TECHNICIAN CPT-J3420 Vitamin B12 1000mcg (Cyanocobalamin) 09:23:21 ELECTRICAL AND INSTRUMENT TECHNICIAN CPT-83663 Abx/Therapy Injection 09:23:21 ELECTRICAL AND INSTRUMENT TECHNICIAN CPT-10602 Urine Dip (Floor Use Only) 20:21:44 ELECTRICAL AND INSTRUMENT TECHNICIAN 201 02/12/11 CPT-65553 UA Dip Auto (Floor Use Only) 10:04:39 ELECTRICAL AND INSTRUMENT TECHNICIAN 2 CPT-33587 Urine Dip (Floor Use Only) 13:27:28 ELECTRICAL AND INSTRUMENT TECHNICIAN 201 02/12/01 CPT-35852 Bladder Scan 13:27:28 ELECTRICAL AND INSTRUMENT TECHNICIAN CPT-65029 Abd single AP View 14:30:51 ELECTRICAL AND INSTRUMENT TECHNICIAN CPT-OV Office Visit 10:15:43 CDT CPT-99718 Urine Dip (Floor Use Only) 17:22:21 CDT 201 02/09/02 CPT-83848 Bladder Scan 17:22:21 CDT
--- OUTSIDE RECORDS SUMMARY | 2020-05-05 11:36 | XMS REPORT | Clinical Summary ---
Author Author Talon, Jeri Wood Organization [employer] Address Unknown Phone Unavailable Allergies, Adverse Reactions, [...] MD Routine general medical examination at a [facility] ac[facility] Body Mass Index 21.0-21.9 Adult Refinement [...] bilateral 782.3 Active 201 07/07/09 León Kodi BUSINESS INTELLIGENCE ADMINISTRATOR Edema FH Depression ICD-V17.0 Inactive Tesfaye Sherman [...] 1 pill by mough daily 2 HYDROCHLOROTHIAZIDE 07508757779 Active León Mariee APRN Active VENLAFAXINE HCL 75 MG ORAL TABLET 1 am 1/2 at noon 201 07/07/09 VENLAFAXINE HCL 55517443630 No Longer Active León Mariee APRN Act trent DIFLUCAN 100 MG ORAL TABLET 1 tablet by mouth daily 20 19/02/09 FLUCONAZOLE 48617431313 No Longer Active León Kodi BUSINESS INTELLIGENCE ADMINISTRATOR Active DIFLUCAN 100 MG ORAL TABLET 1 tablet by mouth daily 20 19/02/09 FLUCONAZOLE 35175725680 No Longer Active Leónkash Mariee BUSINESS INTELLIGENCE ADMINISTRATOR Active GABAPENTIN 300 MG ORAL CAPSULE 1 po daily GABAPEN TIN 02223874840 Active León Kodi BUSINESS INTELLIGENCE ADMINISTRATOR Active OXYCODONE-ACETAMINOPHEN 5-325 MG ORAL TABLET Take one tablet by mouth every 6 hours 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 Use sparingly OXYCODONE-ACETAMINOPHEN 73549505050 Active Tesfaye villar MD Active CLONAZEPAM 0.5 MG ORAL TABLET Take 1/2 qam, and 1/2 qpm CLONAZEPAM 03922411236 Active Tesfaye Sherman MD Active PRELIEF 340 (65-50) MG (CA-P) ORAL TABLET CALCIUM GLYCEROPHOSPHATE 00801010620 No Longer Active Tesfaye Sherman MD Active SUDAFED 24 HOUR 240 MG ORAL TABLET EXTENDED RELEASE 24 HOUR 1 tab po daily PSEUDOEPHEDRINE HCL 25853804395 No Longer Active Raul Sherman MD Active RED YEAST RICE 600 MG ORAL CAPSULE 1 pill by mouth daily RED YEAST RICE EXTRACT 73360735602 No Longer Active Tesfaye Sherman MD Active REPHRESH PRO-B ORAL CAPSULE 1 tablet daily LACT OBACILLUS 01872194786 No Longer Active Tesfaye Sherman MD Active SUDAFED 12 HOUR 120 MG ORAL TABLET EXTENDED RELEASE 12 HOUR 1 pill twice daily if needed for congestion PSEUDOEPHEDRINE HCL 12477340556 A ctive Tesfaye Sherman MD Active ABILIFY 2 MG ORAL TABLET 1 by mouth daily. MARIA LEENA PIPRAZOLE 81908666744 Active Tesfaye Sherman MD Active CYMBALTA 60 MG ORAL CAPSULE DELAYED RELEASE PARTICLES 1 cap by mouth daily for pain DULOXETINE HCL 03943885696 Active Tesfaye Owusu Active DIFLUCAN 100 MG ORAL TABLET 1 tablet by mouth daily 20 20/06/06 FLUCONAZOLE 20065644786 No Longer Active Tesfaye Sherman MD Acti ve PREDNISONE 20 MG ORAL TABLET 1 tablet by mouth twice d aily for 3 days, then 1 tablet daily for 3 days PREDNISONE 79149361202 No L onger Active Tesfaye Sherman MD Active BACTRIM DS 800-160 MG ORAL TABLET 1 tab by mouth twice daily 201 06/09/02 TRIMETHOPRIM-SULFAMETHOXAZOLE 53320665472 No Longer Active A mirna Dominguez Active DIFLUCAN 100 MG ORAL TABLET 1 tablet by mouth daily 20 20/05/01 FLUCONAZOLE 87876921566 No Longer Active Tesfaye Sherman MD Acti ve ZITHROMAX 250 MG ORAL TABLET 2 po today, then 1 po q days 2-5 20 20/04/28 AZITHROMYCIN 25593760874 No Longer Active Tesfaye Sherman MD Active MECLIZINE HCL 25 MG ORAL TABLET one tab po qday prn dizziness 20 17/09/06 MECLIZINE HCL 21726985783 No Longer Active Tesfaye Sherman MD Active PROAIR HFA 108 (90 BASE) MCG/ACT INHALATION AEROSOL SO LUTION 1 puff every 6 hours as needed ALBUTEROL SULFATE 73504620257 No Long er Active Tesfaye Sherman MD Active PREDNISONE 20 MG ORAL TABLET 1 tab twice daily for 3 d ay, then one daily for three days PREDNISONE 39860933635 No Longer Active Tesfaye Sherman MD Active MECLIZINE HCL 25 MG ORAL TABLET one 4 times a day as needed for dizziness MECLIZINE HCL 23818193554 Active Tesfaye Sherman MD Active AMOXICILLIN 500 MG ORAL CAPSULE 1 cap by mouth three times a day AMOXICILLIN 54695874762 No Longer Active Laurenceyohana Lopezduyen Acti ve DIFLUCAN 100 MG ORAL TABLET 1 tablet by mouth daily 19/08/26 FLUCONAZOLE 78282799209 No Longer Active Tesfaye Sherman MD Acti ve BACTRIM DS 800-160 MG ORAL TABLET 1 tab by mouth twice daily 201 05/10/28 TRIMETHOPRIM-SULFAMETHOXAZOLE 54090237224 No Longer Active A mirna Lopezduyen Active FOSAMAX 70 MG ORAL TABLET 1 po qweek. Take 30min prio r to first food/drink. Avoid lying down x 1 hour. ALENDRONATE SODIUM 64764151 144 No Longer Active Laurence Angelica Active CYMBALTA 60 MG ORAL CAPSULE DELAYED RELEASE PARTICLES Take 1 tablet by mouth daily DULOXETINE HCL 24926288567 No Longer Active Edith Burch MD Active CYMBALTA 30 MG ORAL CAPSULE DELAYED RELEASE PARTICLES 1 cap by mouth daily with 60mg DULOXETINE HCL 73224734920 No Longer Active Jordan Burch MD Active FISH OIL 1000 MG ORAL CAPSULE DELAYED RELEASE 1 pill b y mouth daily for cholesterol OMEGA-3 FATTY ACIDS 18935991294 Active Cee Jaffe LPN Active DIFLUCAN 100 MG ORAL TABLET 1 tablet by mouth daily 20 19/03/05 FLUCONAZOLE 05600541686 No Longer Active Tesfaye Sherman MD Acti ve BACTRIM DS 800-160 MG ORAL TABLET 1 tab by mouth twice daily 201 05/06/28 TRIMETHOPRIM-SULFAMETHOXAZOLE 53197151671 No Longer Active Umer Sherman MD Active BACTRIM DS 800-160 MG ORAL TABLET 1 tab by mouth twice daily 201 05/04/15 TRIMETHOPRIM-SULFAMETHOXAZOLE 80046549841 No Longer Active Umer Sherman MD Active DIFLUCAN 150 MG ORAL TABLET 1 tablet by mouth daily 20 18/09/20 FLUCONAZOLE 76556660895 No Longer Active Tesfaye Sherman MD Acti ve BACTRIM DS 800-160 MG ORAL TABLET 1 tab by mouth twice daily 201 04/13/17 TRIMETHOPRIM-SULFAMETHOXAZOLE 66079513647 No Longer Active Umer Sherman MD Active ROPINIROLE HCL 0.25 MG ORAL TABLET 1 TAB PO Q HS ROPINIROLE HCL 60060561728 Active Tesfaye Sherman MD Active CEFTIN 250 MG ORAL TABLET 1 tablet twice daily x 7 days CEFUROXIME AXETIL 71513699501 No Longer Active Tesfaye Sherman MD Active DIFLUCAN 100 MG ORAL TABLET 1 tablet by mouth every other da y for 2 doses FLUCONAZOLE 27388547554 No Longer Active Tesfaye barron MD Active DIFLUCAN 100 MG ORAL TABLET 1 tablet by mouth daily X 3 DAYS 201 04/09/01 FLUCONAZOLE 87786202254 No Longer Active Rj Moss DO Ac tive MIRTAZAPINE 15 MG ORAL TABLET 1/2 tab by mouth at bedtime. 03/13 MIRTAZAPINE 59494869306 No Longer Active Tesfaye Sherman MD Active BACTRIM DS 800-160 MG ORAL TABLET 1 tab by mouth twice daily 201 04/09/01 TRIMETHOPRIM-SULFAMETHOXAZOLE 69564822281 No Longer Active Umer Sherman MD Active PRAMIPEXOLE DIHYDROCHLORIDE 0.125 MG ORAL TABLET take 1 tablet po qhs for restless leg syndrome. PRAMIPEXOLE DIHYDROCHLORI DE 13078224637 No Longer Active Tesfaye Sherman MD Active MAGNESIUM 400 MG ORAL TABLET 1 tab po daily MAGNE SIUM 31501661632 Active Chelsea Cardenas APRN Active CETIRIZINE HCL 5 MG ORAL TABLET Take 1 tablet by mouth daily CETIRIZINE HCL 37078515684 No Longer Active Chelsea Cardenas APRN Activ e TRIMETHOPRIM 100 MG ORAL TABLET 1/2 qd TRIM ETHOPRIM 02751077639 No Longer Active Chelsea Cardenas APRN Active BACTRIM DS 800-160 MG ORAL TABLET 1 tab by mouth twice daily 201 04/04/11 TRIMETHOPRIM-SULFAMETHOXAZOLE 42863471393 No Longer Active Umer Sherman MD Active BACTRIM DS 800-160 MG ORAL TABLET 1 tab by mouth twice daily X 10 DAYS TRIMETHOPRIM-SULFAMETHOXAZOLE 22492898520 No Longer Active Tesfaye Sherman MD Active AMOXICILLIN 500 MG ORAL CAPSULE 1 cap by mouth three times a day AMOXICILLIN 92393768893 No Longer Active Adriana Arredondo, [facility] A ctive B-12 1000 MCG ORAL LOZENGE 1 tab po daily CYANO COBALAMIN 25895402229 Active Tesfaye Sherman MD Active VITAMIN D3 2000 UNIT ORAL TABLET 1 daily, for vitamin D deficien cy CHOLECALCIFEROL 34896564171 No Longer Active Tesfaye Sherman MD Active TIZANIDINE HCL 2 MG ORAL TABLET take 1-2 tablet by mo uth every day at bedtime at 9pm PRN TIZANIDINE HCL 14522429497 Active Tesfaye hewitt MD Active ZITHROMAX 250 MG ORAL TABLET 2 po today, then 1 po q days 2-5 20 15/02/10 AZITHROMYCIN 57381628509 No Longer Active Tesfaye Sherman MD Active BACTRIM DS 800-160 MG ORAL TABLET 1 tab by mouth twice daily 201 03/03/23 TRIMETHOPRIM-SULFAMETHOXAZOLE 37779144677 No Longer Active Umer Sherman MD Active [facility] NIACIN FLUSH FREE 400-100 MG ORAL CAPSULE 1 daily NIACIN-INOSITOL 18045604266 Active Kayla Cooper MD Activ e DIFLUCAN 150 MG ORAL TABLET 1 qd FLUCONAZOL E 55050599309 No Longer Active Kayla Cooper MD Active FLUTICASONE PROPIONATE 50 MCG/ACT NASAL SUSPENSION 1 spray each nostril twice daily FLUTICASONE PROPIONATE 67467823986 Active Umer Sherman MD Active LOVASTATIN 20 MG ORAL TABLET Take 1 tablet by mouth daily LOVASTATIN 27773819618 No Longer Active Tesfaye Sherman MD Acti ve MELOXICAM 7.5 MG ORAL TABLET 1 tablet by mouth daily 2 MELOXICAM 48255936009 No Longer Active Tesfaye Sherman MD Acti ve GABAPENTIN 300 MG ORAL CAPSULE Take two tablets by mouth every e vening GABAPENTIN 21052080310 No Longer Active Edith Burch MD A ctive BACLOFEN 10 MG ORAL TABLET Take one tablet by mouth three times a d ay BACLOFEN 73945970270 Active J John Cooper MD Active GABAPENTIN 300 MG ORAL CAPSULE Take two tablets by mouth every e vening GABAPENTIN 300 MG ORAL CAPSULE 949311 GABAPENTIN I nactive MELOXICAM 7.5 MG ORAL TABLET 1 tablet by mouth daily 2 MELOXICAM 7.5 MG ORAL TABLET 528506 MELOXICAM Inactive LOVASTATIN 20 MG ORAL TABLET Take 1 tablet by mouth daily LOVASTATIN 20 MG ORAL TABLET 750146 LOVASTATIN Inactive DIFLUCAN 150 MG ORAL TABLET 1 qd DIFLUCAN 150 MG ORAL TABLET 203885 FLUCONAZOLE Inactive VITAMIN D3 2000 UNIT ORAL TABLET 1 daily, for vitamin D deficien cy VITAMIN D3 2000 UNIT ORAL TABLET CHOLECALCIFEROL Inactive AMOXICILLIN 500 MG ORAL CAPSULE 1 cap by mouth three times a day AMOXICILLIN 500 MG ORAL CAPSULE 872395 AMOXICILLIN Inactive BACTRIM DS 800-160 MG ORAL TABLET 1 tab by mouth twice daily X 10 DAYS BACTRIM DS 800-160 MG ORAL TABLET 053068 TRIMETHOPRIM-SULFAMETHOXAZOLE Inactive TRIMETHOPRIM 100 MG ORAL TABLET 1/2 qd 7 TRIMETHOPRIM 100 MG ORAL TABLET 348208 TRIMETHOPRIM Inactive CETIRIZINE HCL 5 MG ORAL TABLET Take 1 tablet by mouth daily CETIRIZINE HCL 5 MG ORAL TABLET 0887523 CETIRIZINE HCL Inactive PRAMIPEXOLE DIHYDROCHLORIDE 0.125 MG ORAL TABLET take 1 tablet po qhs for restless leg syndrome. PRAMIPEXOLE DIHYD ROCHLORIDE 0.125 MG ORAL TABLET 059546 PRAMIPEXOLE DIHYDROCHLORIDE Inactive MIRTAZAPINE 15 MG ORAL TABLET 1/2 tab by mouth at bedtime. 03/13 MIRTAZAPINE 15 MG ORAL TABLET 901483 MIRTAZAPINE In active DIFLUCAN 100 MG ORAL TABLET 1 tablet by mouth daily X 3 DAYS 201 04/09/01 DIFLUCAN 100 MG ORAL TABLET 688605 FLUCONAZOLE Inac tive DIFLUCAN 100 MG ORAL TABLET 1 tablet by mouth every other da y for 2 doses DIFLUCAN 100 MG ORAL TABLET 051126 FLUCONAZOLE Inactive CEFTIN 250 MG ORAL TABLET 1 tablet twice daily x 7 days CEFTIN 250 MG ORAL TABLET CEFUROXIME AXETIL Inactive CYMBALTA 30 MG ORAL CAPSULE DELAYED RELEASE PARTICLES 1 cap by mouth daily with 60mg CYMBALTA 30 MG ORAL CAPSULE DELAYED RELEASE PARTICLES 806786 DULOXETINE HCL Inactive CYMBALTA 60 MG ORAL CAPSULE DELAYED RELEASE PARTICLES Take 1 tablet by mouth daily CYMBALTA 60 MG ORAL CAPSULE DELAYED RELEA SE PARTICLES 644390 DULOXETINE HCL Inactive FOSAMAX 70 MG ORAL TABLET 1 po qweek. Take 30min prio r to first food/drink. Avoid lying down x 1 hour. FOSAMAX 70 MG ORAL TA BLET 668637 ALENDRONATE SODIUM Inactive DIFLUCAN 100 MG ORAL TABLET 1 tablet by mouth daily 19/08/26 DIFLUCAN 100 MG ORAL TABLET 054316 FLUCONAZOLE Inactive PREDNISONE 20 MG ORAL TABLET 1 tab twice daily for 3 d ay, then one daily for three days PREDNISONE 20 MG ORAL TABLET 922347 PREDNIS ONE Inactive PROAIR HFA 108 (90 BASE) MCG/ACT INHALATION AEROSOL SO LUTION 1 puff every 6 hours as needed PROAIR HFA 108 (90 B ASE) MCG/ACT INHALATION AEROSOL SOLUTION ALBUTEROL SULFATE Inactive MECLIZINE HCL 25 MG ORAL TABLET one tab po qday prn dizziness 20 17/09/06 MECLIZINE HCL 25 MG ORAL TABLET 997672 MECLIZINE HCL Inactive PREDNISONE 20 MG ORAL TABLET 1 tablet by mouth twice d aily for 3 days, then 1 tablet daily for 3 days PREDNISONE 20 MG ORAL TA BLET 093288 PREDNISONE Inactive DIFLUCAN 100 MG ORAL TABLET 1 tablet by mouth daily 20 20/06/06 DIFLUCAN 100 MG ORAL TABLET 880273 FLUCONAZOLE Inactive REPHRESH PRO-B ORAL CAPSULE 1 tablet daily REPHRESH PRO-B ORAL CAPSULE LACTOBACILLUS Inactive RED YEAST RICE 600 MG ORAL CAPSULE 1 pill by mouth daily RED YEAST RICE 600 MG ORAL CAPSULE 662840 RED YEAST RICE EXTRACT In active SUDAFED [...] 20 19/02/09 DIFLUCAN 100 MG ORAL TABLET 056598 FLUCONAZOLE Inactive DIFLUCAN 100 MG ORAL TABLET 1 tablet by mouth daily 20 19/02/09 DIFLUCAN 100 MG ORAL TABLET 761081 FLUCONAZOLE Inactive VENLAFAXINE HCL 75 MG ORAL TABLET 1 am 1/2 at noon 201 07/07/09 VENLAFAXINE HCL 75 MG ORAL TABLET 428855 VENLAFAXINE HCL Inacti ve BACTRIM DS 800-160 MG ORAL TABLET 1 tab by mouth twice daily 201 03/03/23 BACTRIM DS 800-160 MG ORAL TABLET 587530 TRIMETHOPRIM-SULFAMETHOXAZOLE Inactive ZITHROMAX 250 MG ORAL TABLET 2 po today, then 1 po q days 2-5 20 15/02/10 ZITHROMAX 250 MG ORAL TABLET 304270 AZITHROMYCIN [place] ctive BACTRIM DS 800-160 MG ORAL TABLET [...] 05/06/28 BACTRIM DS 800-160 MG ORAL TABLET 976156 TRIMETHOPRIM-SULFAMETHOXAZOLE Inactive DIFLUCAN 100 MG ORAL TABLET 1 tablet by mouth daily 20 19/03/05 DIFLUCAN 100 MG ORAL TABLET 953472 FLUCONAZOLE Inactive BACTRIM DS 800-160 MG ORAL TABLET 1 tab by mouth twice daily 201 05/10/28 BACTRIM DS 800-160 MG ORAL TABLET 720480 TRIMETHOPRIM-SULFAMETHOXAZOLE Inactive AMOXICILLIN 500 MG ORAL CAPSULE 1 cap by mouth three times a day AMOXICILLIN 500 MG ORAL CAPSULE 621713 AMOXICILLIN Inactive ZITHROMAX 250 MG ORAL TABLET 2 po today, then 1 po q days 2-5 20 20/04/28 ZITHROMAX 250 MG ORAL TABLET 841446 AZITHROMYCIN Mayela ctive DIFLUCAN 100 MG ORAL TABLET 1 tablet by mouth daily 20 20/05/01 DIFLUCAN 100 MG ORAL TABLET 122328 FLUCONAZOLE Inactive BACTRIM DS 800-160 MG ORAL TABLET 1 tab by mouth twice daily 201 06/09/02 BACTRIM DS 800-160 MG ORAL TABLET 635851 TRIMETHOPRIM-SULFAMETHOXAZOLE Inactive Advance Directives Directive Description Start Date PERMISSION TO SHARE DISCUSSED WITH PATIENT -- NO DECISION MADE DURABLE POWER OF CONTACT CENTER REP FOR HEALTHCARE DISCUSED WITH PATIENT -- FULL [...] Report: UADIP W/MICRO, AUTO - Urinal ysis pH, urine, semiquantitative 7.0 5.0-8.5 specific gravity, [...] Negative mg/dL Negative sodium, serum 139 mmol/L 334-605 0561/11/07 carbon dioxide, venous blood 28.4 mmol/L 21.0-32 [...] U/L 15-37 RBC, urine, dipstick Trace-lysed Negative calcium, serum [...] ative Encounters Code Encounter Date Provider Facility CPT-02533 Level 3 Est. Patient 17:27:08 CDT León hernandez [facility] CPT-54416 [id number] Vst-Est Level IV 14:00:[address] Tesfaye Sherman MD [facility] CPT-73105 [id number] Vst-Est Level IV 19:27:[address] Tesfaye Sherman MD [facility] CPT-10594 [id number] Vst-Est Level IV 10:41:41 C BRIDGET Sherman MD [facility]-84524 [id number] Vst-Est Level III 09:40:56 CDT Tesfaye Sherman MD [facility] CPT-64433 Level 4 Est. Patient 22:18:12 CDT Tesfaye pearson MD [facility] CPT-70700 Level 4 Est. Patient 14:44:33 PRESALES SENIOR SPECIALIST Tesfaye pearson MD [facility] CPT-01921 Level 4 Est. Patient 13:55:29 PRESALES SENIOR SPECIALIST Tesfaye pearson MD [facility] CPT-42264 Level 4 Est. Patient 17:07:34 PRESALES SENIOR SPECIALIST Tesfaye pearson MD [facility] CPT-32892 Level 4 Est. Patient 13:56:54 CDT Tesfaye pearson MD [facility] CPT-87377 Level 4 Est. Patient 13:24:25 CDT Chelsea sanz [facility] CPT-29156 Level 4 Est. Patient 09:14:56 CDT Tesfaye pearson MD [facility]-14717 Level 4 Est. Patient 18:40:25 PRESALES SENIOR SPECIALIST Tesfaye pearson MD [facility]-70568 Level 4 Est. Patient 18:13:07 PRESALES SENIOR SPECIALIST Tesfaye pearson MD [facility]-54499 Level 3 Est. Patient 10:46:32 CDT Rj cotto DO [facility] CPT-23251 Level 4 Est. Patient 20:19:25 CDT Tesfaye pearson MD [facility]-65691 Level 3 Est. Patient 09:07:31 CDT Tesfaye pearson MD [facility]-50420 Level 4 Est. Patient 13:12:56 CDT Tesfaye pearson MD [facility]-00848 Level 4 Est. Patient 21:24:55 PRESALES SENIOR SPECIALIST Tesfaye pearson MD [facility]-50771 Level 3 Est. Patient 13:45:04 PRESALES SENIOR SPECIALIST Tesfaye pearson MD [facility] CPT-41808 Level 4 Est. Patient 13:50:45 CDT Tesfaye pearson MD [facility] CPT-38633 Level 3 Est. Patient 10:16:10 CDT Tesfaye pearson MD [facility] CPT-62323 Level 3 Est. Patient 16:36:07 PRESALES SENIOR SPECIALIST Kayla jameson MD [facility]-30226 Level 4 Est. Patient 16:00:14 PRESALES SENIOR SPECIALIST Tesfaye pearson MD [facility]-55181 Level 4 Est. Patient 11:02:24 PRESALES SENIOR SPECIALIST Tesfaye pearson MD [facility]-90066 Level 3 Est. Patient 20:21:43 PRESALES SENIOR SPECIALIST Kayla jameson MD [facility]-08237 Level 3 Est. Patient 13:27:28 PRESALES SENIOR SPECIALIST Kayla jameson MD [facility] CPT-11347 Level 4 Est. Patient 15:57:17 PRESALES SENIOR SPECIALIST Tesfaye pearson MD [facility] CPT-96144 Level 3 New Patient 13:25:47 CDT Tesfaye kidd MD [facility] CPT-81556 Level 3 New Patient 17:22:21 CDT Kayla angel [facility] Procedures Code Procedure Name Date Entry Date Standard Desc ription CPT-G0439 Subsequent Annual Wellness Exam 22:18:11 CDT CPT-93628 Bone Density - XRAY USE ONLY 11:43:58 CDT 2 CPT-82595 Bone Density - XRAY USE ONLY 10:05:16 CDT 2 CPT-43910 Prv Med New Pt 40-64 yrs 18:19:25 CDT 2016 CPT-99491 Foot, right, comp min 3V - XRAY USE ONLY 10:38:34 CDT CPT-G0439 Subsequent Annual Wellness Exam 13:55:04 CDT CPT-G0438 Initial Annual Wellness Exam 11:23:17 CD T CPT-J2930 Solu Medrol 125 mg (Methyl Prednisolone Sodium Succinate) 17:29:12 PRESALES SENIOR SPECIALIST CPT-45922 Abx/Therapy Injection 17:29:11 PRESALES SENIOR SPECIALIST CPT-J2930 Solu Medrol 125 mg (Methyl Prednisolone Sodium Succinate) 12:34:38 PRESALES SENIOR SPECIALIST CPT-J3420 Vitamin B12 1000mcg (Cyanocobalamin) 09:12:55 CDT CPT-J3420 Vitamin B12 1000mcg (Cyanocobalamin) 16:28:06 PRESALES SENIOR SPECIALIST CPT-60758 Venipuncture Draw Fee 08:39:53 CDT CPT-J3420 Vitamin B12 1000mcg (Cyanocobalamin) 08:46:22 CDT CPT-54029 Abx/Therapy Injection 08:46:22 CDT CPT-J3420 Vitamin B12 1000mcg (Cyanocobalamin) 08:41:26 CDT CPT-25496 Abx/Therapy Injection 08:41:26 CDT CPT-J3420 Vitamin B12 1000mcg (Cyanocobalamin) 08:57:15 CDT CPT-35821 Abx/Therapy Injection 08:57:15 CDT CPT-J3420 Vitamin B12 1000mcg (Cyanocobalamin) 10:59:03 CDT CPT-45035 Abx/Therapy Injection 10:59:03 CDT CPT-J3420 Vitamin B12 1000mcg (Cyanocobalamin) 15:05:39 CDT CPT-34934 Abx/Therapy Injection 15:05:39 CDT CPT-J3420 Vitamin B12 1000mcg (Cyanocobalamin) 13:50:45 CDT CPT-J3420 Vitamin B12 1000mcg (Cyanocobalamin) 08:48:55 CDT CPT-92076 Abx/Therapy Injection 08:48:55 CDT CPT-J3420 Vitamin B12 1000mcg (Cyanocobalamin) 09:14:54 CDT CPT-38794 Abx/Therapy Injection 09:14:54 CDT CPT-J3420 Vitamin B12 1000mcg (Cyanocobalamin) 09:06:06 CDT CPT-10497 Abx/Therapy Injection 09:06:06 CDT CPT-J3420 Vitamin B12 1000mcg (Cyanocobalamin) 09:49:14 CDT CPT-48605 Abx/Therapy Injection 09:49:14 CDT CPT-J3420 Vitamin B12 1000mcg (Cyanocobalamin) 09:10:30 PRESALES SENIOR SPECIALIST CPT-31620 Abx/Therapy Injection 09:10:30 PRESALES SENIOR SPECIALIST CPT-J3420 Vitamin B12 1000mcg (Cyanocobalamin) 09:11:07 PRESALES SENIOR SPECIALIST CPT-18416 Abx/Therapy Injection 09:11:07 PRESALES SENIOR SPECIALIST CPT-J3420 Vitamin B12 1000mcg (Cyanocobalamin) 09:57:03 PRESALES SENIOR SPECIALIST CPT-05285 Abx/Therapy Injection 09:57:03 PRESALES SENIOR SPECIALIST CPT-J3420 Vitamin B12 1000mcg (Cyanocobalamin) 09:23:21 PRESALES SENIOR SPECIALIST CPT-92963 Abx/Therapy Injection 09:23:21 PRESALES SENIOR SPECIALIST CPT-60678 Urine Dip (Floor Use Only) 20:21:44 PRESALES SENIOR SPECIALIST 201 02/12/11 CPT-19432 UA Dip Auto (Floor Use Only) 10:04:39 PRESALES SENIOR SPECIALIST 2 CPT-01217 Urine Dip (Floor Use Only) 13:27:28 PRESALES SENIOR SPECIALIST 201 02/12/01 CPT-17269 Bladder Scan 13:27:28 PRESALES SENIOR SPECIALIST CPT-69606 Abd single AP View 14:30:51 PRESALES SENIOR SPECIALIST CPT-OV Office Visit 10:15:43 CDT CPT-55453 Urine Dip (Floor Use Only) 17:22:21 CDT 201 02/09/02 CPT-60713 Bladder Scan 17:22:21 CDT
--- OUTSIDE RECORDS SUMMARY | 2020-05-05 11:36 | XMS REPORT | Clinical Summary ---
Author Author Talon, Jeri Wood Organization [employer] Address Unknown Phone Unavailable Allergies, Adverse [...] Sherman MD Routine general medical examination at [facility] acility Sinusitis 461.9 Resolved Tesfaye [...] bilateral 782.3 Active 201 07/07/09 León Kodi POULTRY VETERINARIAN Edema FH Diabetes ICD-V18.0 Inactive Tesfaye Sherman [...] 1 pill by mough daily 2 HYDROCHLOROTHIAZIDE [id number] Active León Mariee APRN Active VENLAFAXINE HCL 75 MG ORAL TABLET 1 am 1/2 at noon 201 07/07/09 VENLAFAXINE HCL 79273679333 No Longer Active León Mariee APRN Act trent DIFLUCAN 100 MG ORAL TABLET 1 tablet by mouth daily 20 19/02/09 FLUCONAZOLE 02629876641 No Longer Active León Kodi POULTRY VETERINARIAN Active DIFLUCAN 100 MG ORAL TABLET 1 tablet by mouth daily 20 19/02/09 FLUCONAZOLE 67874337330 No Longer Active Leónkash Mariee POULTRY VETERINARIAN Active GABAPENTIN 300 MG ORAL CAPSULE 1 po daily GABAPEN TIN 11951872200 Active León Kodi POULTRY VETERINARIAN Active OXYCODONE-ACETAMINOPHEN 5-325 MG ORAL TABLET Take one tablet by mouth every 6 hours 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 Use sparingly OXYCODONE-ACETAMINOPHEN 95774883428 Active Tesfaye villar MD Active CLONAZEPAM 0.5 MG ORAL TABLET Take 1/2 qam, and 1/2 qpm CLONAZEPAM 94798848440 Active Tesfaye Sherman MD Active PRELIEF 340 (65-50) MG (CA-P) ORAL TABLET CALCIUM GLYCEROPHOSPHATE 94311936594 No Longer Active Tesfaye Sherman MD Active SUDAFED 24 HOUR 240 MG ORAL TABLET EXTENDED RELEASE 24 HOUR 1 tab po daily PSEUDOEPHEDRINE HCL 29993584922 No Longer Active Raul Sherman MD Active RED YEAST RICE 600 MG ORAL CAPSULE 1 pill by mouth daily RED YEAST RICE EXTRACT 59220068662 No Longer Active Tesfaye Sherman MD Active REPHRESH PRO-B ORAL CAPSULE 1 tablet daily LACT OBACILLUS 52899877893 No Longer Active Tesfaye Sherman MD Active SUDAFED 12 HOUR 120 MG ORAL TABLET EXTENDED RELEASE 12 HOUR 1 pill twice daily if needed for congestion PSEUDOEPHEDRINE HCL 94487650611 A ctive Tesfaye Sherman MD Active ABILIFY 2 MG ORAL TABLET 1 by mouth daily. MARIA ELENA PIPRAZOLE 29376940363 Active Tesfaye Sherman MD Active CYMBALTA 60 MG ORAL CAPSULE DELAYED RELEASE PARTICLES 1 cap by mouth daily for pain DULOXETINE HCL 80131337706 Active Tesfaye Owusu Active DIFLUCAN 100 MG ORAL TABLET 1 tablet by mouth daily 20 20/06/06 FLUCONAZOLE 62550947648 No Longer Active Tesfaye Sherman MD Acti ve PREDNISONE 20 MG ORAL TABLET 1 tablet by mouth twice d aily for 3 days, then 1 tablet daily for 3 days PREDNISONE 73490813995 No L onger Active Tesfaye Sherman MD Active BACTRIM DS 800-160 MG ORAL TABLET 1 tab by mouth twice daily 201 06/09/02 TRIMETHOPRIM-SULFAMETHOXAZOLE 24085719356 No Longer Active A mirna Dominguez Active DIFLUCAN 100 MG ORAL TABLET 1 tablet by mouth daily 20 20/05/01 FLUCONAZOLE 58772643365 No Longer Active Tesfaye Sherman MD Acti ve ZITHROMAX 250 MG ORAL TABLET 2 po today, then 1 po q days 2-5 20 20/04/28 AZITHROMYCIN 22862435877 No Longer Active Tesfaye Sherman MD Active MECLIZINE HCL 25 MG ORAL TABLET one tab po qday prn dizziness 20 17/09/06 MECLIZINE HCL 69403361111 No Longer Active Tesfaye Sherman MD Active PROAIR HFA 108 (90 BASE) MCG/ACT INHALATION AEROSOL SO LUTION 1 puff every 6 hours as needed ALBUTEROL SULFATE 93164278108 No Long er Active Tesfaye Sherman MD Active PREDNISONE 20 MG ORAL TABLET 1 tab twice daily for 3 d ay, then one daily for three days PREDNISONE 52749159039 No Longer Active Tesfaye Sherman MD Active MECLIZINE HCL 25 MG ORAL TABLET one 4 times a day as needed for dizziness MECLIZINE HCL 07097792044 Active Tesfaye Sherman MD Active AMOXICILLIN 500 MG ORAL CAPSULE 1 cap by mouth three times a day AMOXICILLIN 37490029908 No Longer Active Laurenceyohana Lopezduyen Acti ve DIFLUCAN 100 MG ORAL TABLET 1 tablet by mouth daily 19/08/26 FLUCONAZOLE 98455050485 No Longer Active Tesfaye Sherman MD Acti ve BACTRIM DS 800-160 MG ORAL TABLET 1 tab by mouth twice daily 201 05/10/28 TRIMETHOPRIM-SULFAMETHOXAZOLE 76073394846 No Longer Active A mirna Lopezduyen Active FOSAMAX 70 MG ORAL TABLET 1 po qweek. Take 30min prio r to first food/drink. Avoid lying down x 1 hour. ALENDRONATE SODIUM 46900025 144 No Longer Active Laurence Angelica Active CYMBALTA 60 MG ORAL CAPSULE DELAYED RELEASE PARTICLES Take 1 tablet by mouth daily DULOXETINE HCL 85838407687 No Longer Active Edith Burch MD Active CYMBALTA 30 MG ORAL CAPSULE DELAYED RELEASE PARTICLES 1 cap by mouth daily with 60mg DULOXETINE HCL 36216558298 No Longer Active Jordan Burch MD Active FISH OIL 1000 MG ORAL CAPSULE DELAYED RELEASE 1 pill b y mouth daily for cholesterol OMEGA-3 FATTY ACIDS 07638281455 Active Cee Jaffe LPN Active DIFLUCAN 100 MG ORAL TABLET 1 tablet by mouth daily 20 19/03/05 FLUCONAZOLE 30242788720 No Longer Active Tesfaye Sherman MD Acti ve BACTRIM DS 800-160 MG ORAL TABLET 1 tab by mouth twice daily 201 05/06/28 TRIMETHOPRIM-SULFAMETHOXAZOLE 06103345440 No Longer Active Umer Sherman MD Active BACTRIM DS 800-160 MG ORAL TABLET 1 tab by mouth twice daily 201 05/04/15 TRIMETHOPRIM-SULFAMETHOXAZOLE 16805654419 No Longer Active Umer Sherman MD Active DIFLUCAN 150 MG ORAL TABLET 1 tablet by mouth daily 20 18/09/20 FLUCONAZOLE 09732723672 No Longer Active Tesfaye Sherman MD Acti ve BACTRIM DS 800-160 MG ORAL TABLET 1 tab by mouth twice daily 201 04/13/17 TRIMETHOPRIM-SULFAMETHOXAZOLE 57997867917 No Longer Active Umer Sherman MD Active ROPINIROLE HCL 0.25 MG ORAL TABLET 1 TAB PO Q HS ROPINIROLE HCL 94479402103 Active Tesfaye Sherman MD Active CEFTIN 250 MG ORAL TABLET 1 tablet twice daily x 7 days CEFUROXIME AXETIL 27328412429 No Longer Active Tesfaye Sherman MD Active DIFLUCAN 100 MG ORAL TABLET 1 tablet by mouth every other da y for 2 doses FLUCONAZOLE 22199763833 No Longer Active Tesfaye barron MD Active DIFLUCAN 100 MG ORAL TABLET 1 tablet by mouth daily X 3 DAYS 201 04/09/01 FLUCONAZOLE 76061331935 No Longer Active Rj Moss DO Ac tive MIRTAZAPINE 15 MG ORAL TABLET 1/2 tab by mouth at bedtime. 03/13 MIRTAZAPINE 37008580066 No Longer Active Tesfaye Sherman MD Active BACTRIM DS 800-160 MG ORAL TABLET 1 tab by mouth twice daily 201 04/09/01 TRIMETHOPRIM-SULFAMETHOXAZOLE 42930978414 No Longer Active Umer Sherman MD Active PRAMIPEXOLE DIHYDROCHLORIDE 0.125 MG ORAL TABLET take 1 tablet po qhs for restless leg syndrome. PRAMIPEXOLE DIHYDROCHLORI DE 28178649324 No Longer Active Tesfaye Sherman MD Active MAGNESIUM 400 MG ORAL TABLET 1 tab po daily MAGNE SIUM 07052751488 Active Chelsea Cardenas APRN Active CETIRIZINE HCL 5 MG ORAL TABLET Take 1 tablet by mouth daily CETIRIZINE HCL 79363115752 No Longer Active Chelsea Cardenas APRN Activ e TRIMETHOPRIM 100 MG ORAL TABLET 1/2 qd TRIM ETHOPRIM 64426706908 No Longer Active Chelsea Cardenas APRN Active BACTRIM DS 800-160 MG ORAL TABLET 1 tab by mouth twice daily 201 04/04/11 TRIMETHOPRIM-SULFAMETHOXAZOLE 49364302432 No Longer Active Umer Sherman MD Active BACTRIM DS 800-160 MG ORAL TABLET 1 tab by mouth twice daily X 10 DAYS TRIMETHOPRIM-SULFAMETHOXAZOLE 59639388254 No Longer Active Tesfaye Sherman MD Active AMOXICILLIN 500 MG ORAL CAPSULE 1 cap by mouth three times a day AMOXICILLIN 47501585981 No Longer Active Adriana Arredondo, [facility] A ctive B-12 1000 MCG ORAL LOZENGE 1 tab po daily CYANO COBALAMIN 85769987002 Active Tesfaye Sherman MD Active VITAMIN D3 2000 UNIT ORAL TABLET 1 daily, for vitamin D deficien cy CHOLECALCIFEROL 33602878491 No Longer Active Tesfaye Sherman MD Active TIZANIDINE HCL 2 MG ORAL TABLET take 1-2 tablet by mo uth every day at bedtime at 9pm PRN TIZANIDINE HCL 14684879335 Active Tesfaye hewitt MD Active ZITHROMAX 250 MG ORAL TABLET 2 po today, then 1 po q days 2-5 20 15/02/10 AZITHROMYCIN 01926764083 No Longer Active Tesfaye Sherman MD Active BACTRIM DS 800-160 MG ORAL TABLET 1 tab by mouth twice daily 201 03/03/23 TRIMETHOPRIM-SULFAMETHOXAZOLE 33334407210 No Longer Active Umer Sherman MD Active [facility] NIACIN FLUSH FREE 400-100 MG ORAL CAPSULE 1 daily NIACIN-INOSITOL 75517363065 Active Kayla Cooper MD Activ e DIFLUCAN 150 MG ORAL TABLET 1 qd FLUCONAZOL E 96338880613 No Longer Active Kayla Cooper MD Active FLUTICASONE PROPIONATE 50 MCG/ACT NASAL SUSPENSION 1 spray each nostril twice daily FLUTICASONE PROPIONATE 34293294762 Active Umer Sherman MD Active LOVASTATIN 20 MG ORAL TABLET Take 1 tablet by mouth daily LOVASTATIN 25481915698 No Longer Active Tesfaye Sherman MD Acti ve MELOXICAM 7.5 MG ORAL TABLET 1 tablet by mouth daily 2 MELOXICAM 94502346066 No Longer Active Tesfaye Sherman MD Acti ve GABAPENTIN 300 MG ORAL CAPSULE Take two tablets by mouth every e vening GABAPENTIN 85409666884 No Longer Active Edith Burch MD A ctive BACLOFEN 10 MG ORAL TABLET Take one tablet by mouth three times a d ay BACLOFEN 10232302742 Active J John Cooper MD Active GABAPENTIN 300 MG ORAL CAPSULE Take two tablets by mouth every e vening GABAPENTIN 300 MG ORAL CAPSULE 902122 GABAPENTIN I nactive MELOXICAM 7.5 MG ORAL TABLET 1 tablet by mouth daily 2 MELOXICAM 7.5 MG ORAL TABLET 196589 MELOXICAM Inactive LOVASTATIN 20 MG ORAL TABLET Take 1 tablet by mouth daily LOVASTATIN 20 MG ORAL TABLET 008590 LOVASTATIN Inactive DIFLUCAN 150 MG ORAL TABLET 1 qd DIFLUCAN 150 MG ORAL TABLET 370567 FLUCONAZOLE Inactive VITAMIN D3 2000 UNIT ORAL TABLET 1 daily, for vitamin D deficien cy VITAMIN D3 2000 UNIT ORAL TABLET CHOLECALCIFEROL Inactive AMOXICILLIN 500 MG ORAL CAPSULE 1 cap by mouth three times a day AMOXICILLIN 500 MG ORAL CAPSULE 934593 AMOXICILLIN Inactive BACTRIM DS 800-160 MG ORAL TABLET 1 tab by mouth twice daily X 10 DAYS BACTRIM DS 800-160 MG ORAL TABLET 730322 TRIMETHOPRIM-SULFAMETHOXAZOLE Inactive TRIMETHOPRIM 100 MG ORAL TABLET 1/2 qd 7 TRIMETHOPRIM 100 MG ORAL TABLET 772532 TRIMETHOPRIM Inactive CETIRIZINE HCL 5 MG ORAL TABLET Take 1 tablet by mouth daily CETIRIZINE HCL 5 MG ORAL TABLET 7944959 CETIRIZINE HCL Inactive PRAMIPEXOLE DIHYDROCHLORIDE 0.125 MG ORAL TABLET take 1 tablet po qhs for restless leg syndrome. PRAMIPEXOLE DIHYD ROCHLORIDE 0.125 MG ORAL TABLET 027628 PRAMIPEXOLE DIHYDROCHLORIDE Inactive MIRTAZAPINE 15 MG ORAL TABLET 1/2 tab by mouth at bedtime. 03/13 MIRTAZAPINE 15 MG ORAL TABLET 763206 MIRTAZAPINE In active DIFLUCAN 100 MG ORAL TABLET 1 tablet by mouth daily X 3 DAYS 201 04/09/01 DIFLUCAN 100 MG ORAL TABLET 751139 FLUCONAZOLE Inac tive DIFLUCAN 100 MG ORAL TABLET 1 tablet by mouth every other da y for 2 doses DIFLUCAN 100 MG ORAL TABLET 698966 FLUCONAZOLE Inactive CEFTIN 250 MG ORAL TABLET 1 tablet twice daily x 7 days CEFTIN 250 MG ORAL TABLET CEFUROXIME AXETIL Inactive CYMBALTA 30 MG ORAL CAPSULE DELAYED RELEASE PARTICLES 1 cap by mouth daily with 60mg CYMBALTA 30 MG ORAL CAPSULE DELAYED RELEASE PARTICLES 596628 DULOXETINE HCL Inactive CYMBALTA 60 MG ORAL CAPSULE DELAYED RELEASE PARTICLES Take 1 tablet by mouth daily CYMBALTA 60 MG ORAL CAPSULE DELAYED RELEA SE PARTICLES 533351 DULOXETINE HCL Inactive FOSAMAX 70 MG ORAL TABLET 1 po qweek. Take 30min prio r to first food/drink. Avoid lying down x 1 hour. FOSAMAX 70 MG ORAL TA BLET 049118 ALENDRONATE SODIUM Inactive DIFLUCAN 100 MG ORAL TABLET 1 tablet by mouth daily 19/08/26 DIFLUCAN 100 MG ORAL TABLET 348213 FLUCONAZOLE Inactive PREDNISONE 20 MG ORAL TABLET 1 tab twice daily for 3 d ay, then one daily for three days PREDNISONE 20 MG ORAL TABLET 908692 PREDNIS ONE Inactive PROAIR HFA 108 (90 BASE) MCG/ACT INHALATION AEROSOL SO LUTION 1 puff every 6 hours as needed PROAIR HFA 108 (90 B ASE) MCG/ACT INHALATION AEROSOL SOLUTION ALBUTEROL SULFATE Inactive MECLIZINE HCL 25 MG ORAL TABLET one tab po qday prn dizziness 20 17/09/06 MECLIZINE HCL 25 MG ORAL TABLET 236173 MECLIZINE HCL Inactive PREDNISONE 20 MG ORAL TABLET 1 tablet by mouth twice d aily for 3 days, then 1 tablet daily for 3 days PREDNISONE 20 MG ORAL TA BLET 424845 PREDNISONE Inactive DIFLUCAN 100 MG ORAL TABLET 1 tablet by mouth daily 20 20/06/06 DIFLUCAN 100 MG ORAL TABLET 668974 FLUCONAZOLE Inactive REPHRESH PRO-B ORAL CAPSULE 1 tablet daily REPHRESH PRO-B ORAL CAPSULE LACTOBACILLUS Inactive RED YEAST RICE 600 MG ORAL CAPSULE 1 pill by mouth daily RED YEAST RICE 600 MG ORAL CAPSULE 264226 RED YEAST RICE EXTRACT In active SUDAFED [...] 20 19/02/09 DIFLUCAN 100 MG ORAL TABLET 758801 FLUCONAZOLE Inactive DIFLUCAN 100 MG ORAL TABLET 1 tablet by mouth daily 20 19/02/09 DIFLUCAN 100 MG ORAL TABLET 922892 FLUCONAZOLE Inactive VENLAFAXINE HCL 75 MG ORAL TABLET 1 am 1/2 at noon 201 07/07/09 VENLAFAXINE HCL 75 MG ORAL TABLET 568986 VENLAFAXINE HCL Inacti ve BACTRIM DS 800-160 MG ORAL TABLET 1 tab by mouth twice daily 201 03/03/23 BACTRIM DS 800-160 MG ORAL TABLET 659157 TRIMETHOPRIM-SULFAMETHOXAZOLE Inactive ZITHROMAX 250 MG ORAL TABLET 2 po today, then 1 po q days 2-5 20 15/02/10 ZITHROMAX 250 MG ORAL TABLET 933056 AZITHROMYCIN [place] ctive BACTRIM DS 800-160 MG ORAL TABLET [...] 05/06/28 BACTRIM DS 800-160 MG ORAL TABLET 451020 TRIMETHOPRIM-SULFAMETHOXAZOLE Inactive DIFLUCAN 100 MG ORAL TABLET 1 tablet by mouth daily 20 19/03/05 DIFLUCAN 100 MG ORAL TABLET 919051 FLUCONAZOLE Inactive BACTRIM DS 800-160 MG ORAL TABLET 1 tab by mouth twice daily 201 05/10/28 BACTRIM DS 800-160 MG ORAL TABLET 095136 TRIMETHOPRIM-SULFAMETHOXAZOLE Inactive AMOXICILLIN 500 MG ORAL CAPSULE 1 cap by mouth three times a day AMOXICILLIN 500 MG ORAL CAPSULE 426090 AMOXICILLIN Inactive ZITHROMAX 250 MG ORAL TABLET 2 po today, then 1 po q days 2-5 20 20/04/28 ZITHROMAX 250 MG ORAL TABLET 194225 AZITHROMYCIN [place] ctive DIFLUCAN 100 MG ORAL TABLET 1 tablet by mouth daily 20 20/05/01 DIFLUCAN 100 MG ORAL TABLET 939524 FLUCONAZOLE Inactive BACTRIM DS 800-160 MG ORAL TABLET 1 tab by mouth twice daily 201 06/09/02 BACTRIM DS 800-160 MG ORAL TABLET 975031 TRIMETHOPRIM-SULFAMETHOXAZOLE Inactive Advance Directives Directive Description Start Date PERMISSION TO SHARE DISCUSSED WITH PATIENT -- NO DECISION MADE DURABLE POWER OF COLLAR CLOSER LOCKSTITCH FOR HEALTHCARE DISCUSED WITH PATIENT -- FULL [...] CBC - Chemistry sodium, serum 139 mmol/L 517-307 0504/11/07 carbon dioxide, venous blood 28.4 mmol/L 21.0-32 [...] 1.015 1.000-1.030 pH, urine, semiquantitative 5.5 5.0-8.5 glucose, urine, semiquantitative Negative Neg ative ketones, urine, by test strip Negative Negati ve bilirubin, urine Negative Negative urobilinogen, urine, semiquantitative (dipstick) 0.2 E .U./dL Normal leukocyte esterase, urine, by dipstick Negative Negative nitrite, urine, semiquantitative Negative Neg ative Encounters Code Encounter Date Provider Facility CPT-11945 Level 3 Est. Patient 17:27:08 CDT León hernandez [facility] CPT-39326 [id number] Vst-Est Level IV 14:00:[address] Tesfaye Sherman MD [facility] CPT-16126 [id number] Vst-Est Level IV 19:27:[address] Tesfaye Sherman MD [facility] CPT-26699 [id number] Vst-Est Level IV 10:41:41 C BRIDGET Sherman MD [facility]-81795 [id number] Vst-Est Level III 09:40:56 CDT Tesfaye Sherman MD [facility] CPT-22766 Level 4 Est. Patient 22:18:12 CDT Tesfaye pearson MD [facility] CPT-73574 Level 4 Est. 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 Patient 13:55:29 GOVERNMENT SERVICE EXECUTIVE Tesfaye pearson MD [facility] CPT-69440 Level 4 Est. Patient 17:07:34 GOVERNMENT SERVICE EXECUTIVE Tesfaye pearson MD [facility] CPT-96211 Level 4 Est. Patient 13:56:54 CDT Tesfaye pearson MD [facility] CPT-67109 Level 4 Est. Patient 13:24:25 CDT Chelsea sanz [facility] CPT-51387 Level 4 Est. Patient 09:14:56 CDT Tesfaye pearson MD [facility]-03146 Level 4 Est. Patient 18:40:25 GOVERNMENT SERVICE EXECUTIVE Tesfaye pearson MD [facility]-78873 Level 4 Est. Patient 18:13:07 GOVERNMENT SERVICE EXECUTIVE Tesfaye pearson MD [facility]-07616 Level 3 Est. Patient 10:46:32 CDT Rj cotto DO [facility] CPT-07615 Level 4 Est. Patient 20:19:25 CDT Tesfaye pearson MD [facility]-32093 Level 3 Est. Patient 09:07:31 CDT Tesfaye pearson MD [facility]-69202 Level 4 Est. Patient 13:12:56 CDT Tesfaye pearson MD [facility]-47146 Level 4 Est. Patient 21:24:55 GOVERNMENT SERVICE EXECUTIVE Tesfaye pearson MD [facility]-72031 Level 3 Est. Patient 13:45:04 GOVERNMENT SERVICE EXECUTIVE Tesfaye pearson MD [facility] CPT-02035 Level 4 Est. Patient 13:50:45 CDT Tesfaye pearson MD [facility] CPT-92844 Level 3 Est. Patient 10:16:10 CDT Tesfaye pearson MD [facility] CPT-97219 Level 3 Est. Patient 16:36:07 GOVERNMENT SERVICE EXECUTIVE Kayla jameson MD [facility]-35158 Level 4 Est. Patient 16:00:14 GOVERNMENT SERVICE EXECUTIVE Tesfaye pearson MD [facility]-35134 Level 4 Est. Patient 11:02:24 GOVERNMENT SERVICE EXECUTIVE Tesfaye pearson MD [facility]-96245 Level 3 Est. Patient 20:21:43 GOVERNMENT SERVICE EXECUTIVE Kayla jameson MD [facility]-21160 Level 3 Est. Patient 13:27:28 GOVERNMENT SERVICE EXECUTIVE Kayla jameson MD [facility] CPT-22287 Level 4 Est. Patient 15:57:17 GOVERNMENT SERVICE EXECUTIVE Tesfaye pearson MD [facility] CPT-38776 Level 3 New Patient 13:25:47 CDT Tesfaye kidd MD [facility] CPT-31082 Level 3 New Patient 17:22:21 CDT Kayla angel [facility] Procedures Code Procedure Name Date Entry Date Standard Desc ription CPT-G0439 Subsequent Annual Wellness Exam 22:18:11 CDT CPT-29424 Bone Density - XRAY USE ONLY 11:43:58 CDT 2 CPT-79387 Bone Density - XRAY USE ONLY 10:05:16 CDT 2 CPT-34077 Prv Med New Pt 40-64 yrs 18:19:25 CDT 2016 CPT-44873 Foot, right, comp min 3V - XRAY USE ONLY 10:38:34 CDT CPT-G0439 Subsequent Annual Wellness Exam 13:55:04 CDT CPT-G0438 Initial Annual Wellness Exam 11:23:17 CD T CPT-J2930 Solu Medrol 125 mg (Methyl Prednisolone Sodium Succinate) 17:29:12 GOVERNMENT SERVICE EXECUTIVE CPT-45280 Abx/Therapy Injection 17:29:11 GOVERNMENT SERVICE EXECUTIVE CPT-J2930 Solu Medrol 125 mg (Methyl Prednisolone Sodium Succinate) 12:34:38 GOVERNMENT SERVICE EXECUTIVE CPT-J3420 Vitamin B12 1000mcg (Cyanocobalamin) 09:12:55 CDT CPT-J3420 Vitamin B12 1000mcg (Cyanocobalamin) 16:28:06 GOVERNMENT SERVICE EXECUTIVE CPT-88164 Venipuncture Draw Fee 08:39:53 CDT CPT-J3420 Vitamin B12 1000mcg (Cyanocobalamin) 08:46:22 CDT CPT-19642 Abx/Therapy Injection 08:46:22 CDT CPT-J3420 Vitamin B12 1000mcg (Cyanocobalamin) 08:41:26 CDT CPT-06553 Abx/Therapy Injection 08:41:26 CDT CPT-J3420 Vitamin B12 1000mcg (Cyanocobalamin) 08:57:15 CDT CPT-48132 Abx/Therapy Injection 08:57:15 CDT CPT-J3420 Vitamin B12 1000mcg (Cyanocobalamin) 10:59:03 CDT CPT-16371 Abx/Therapy Injection 10:59:03 CDT CPT-J3420 Vitamin B12 1000mcg (Cyanocobalamin) 15:05:39 CDT CPT-82761 Abx/Therapy Injection 15:05:39 CDT CPT-J3420 Vitamin B12 1000mcg (Cyanocobalamin) 13:50:45 CDT CPT-J3420 Vitamin B12 1000mcg (Cyanocobalamin) 08:48:55 CDT CPT-00591 Abx/Therapy Injection 08:48:55 CDT CPT-J3420 Vitamin B12 1000mcg (Cyanocobalamin) 09:14:54 CDT CPT-98306 Abx/Therapy Injection 09:14:54 CDT CPT-J3420 Vitamin B12 1000mcg (Cyanocobalamin) 09:06:06 CDT CPT-50678 Abx/Therapy Injection 09:06:06 CDT CPT-J3420 Vitamin B12 1000mcg (Cyanocobalamin) 09:49:14 CDT CPT-09292 Abx/Therapy Injection 09:49:14 CDT CPT-J3420 Vitamin B12 1000mcg (Cyanocobalamin) 09:10:30 GOVERNMENT SERVICE EXECUTIVE CPT-19846 Abx/Therapy Injection 09:10:30 GOVERNMENT SERVICE EXECUTIVE CPT-J3420 Vitamin B12 1000mcg (Cyanocobalamin) 09:11:07 GOVERNMENT SERVICE EXECUTIVE CPT-76387 Abx/Therapy Injection 09:11:07 GOVERNMENT SERVICE EXECUTIVE CPT-J3420 Vitamin B12 1000mcg (Cyanocobalamin) 09:57:03 GOVERNMENT SERVICE EXECUTIVE CPT-94876 Abx/Therapy Injection 09:57:03 GOVERNMENT SERVICE EXECUTIVE CPT-J3420 Vitamin B12 1000mcg (Cyanocobalamin) 09:23:21 GOVERNMENT SERVICE EXECUTIVE CPT-37530 Abx/Therapy Injection 09:23:21 GOVERNMENT SERVICE EXECUTIVE CPT-49695 Urine Dip (Floor Use Only) 20:21:44 GOVERNMENT SERVICE EXECUTIVE 201 02/12/11 CPT-07101 UA Dip Auto (Floor Use Only) 10:04:39 GOVERNMENT SERVICE EXECUTIVE 2 CPT-51197 Urine Dip (Floor Use Only) 13:27:28 GOVERNMENT SERVICE EXECUTIVE 201 02/12/01 CPT-17791 Bladder Scan 13:27:28 GOVERNMENT SERVICE EXECUTIVE CPT-43695 Abd single AP View 14:30:51 GOVERNMENT SERVICE EXECUTIVE CPT-OV Office Visit 10:15:43 CDT CPT-30843 Urine Dip (Floor Use Only) 17:22:21 CDT 201 02/09/02 CPT-89953 Bladder Scan 17:22:21 CDT
--- OUTSIDE RECORDS SUMMARY | 2020-05-05 11:37 | XMS REPORT | Clinical Summary ---
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.] 1 pill by mough daily 2 HYDROCHLOROTHIAZIDE 50690713191 Active León Mariee APRN Active VENLAFAXINE HCL 75 MG ORAL TABLET 1 am 1/2 at noon 201 07/07/09 VENLAFAXINE HCL 65339255593 No Longer Active León Mariee APRN Act trent DIFLUCAN 100 MG ORAL TABLET 1 tablet by mouth daily 20 19/02/09 FLUCONAZOLE 61279825296 No Longer Active 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 Use sparingly OXYCODONE-ACETAMINOPHEN 47096143624 Active Tesfaye villar MD Active CLONAZEPAM 0.5 MG ORAL TABLET Take 1/2 qam, and 1/2 qpm CLONAZEPAM 96494528961 Active Tesfaye Sherman MD Active PRELIEF 340 (65-50) MG (CA-P) ORAL TABLET CALCIUM GLYCEROPHOSPHATE 07579245111 No Longer Active Tesfaye Sherman MD Active SUDAFED 24 HOUR 240 MG ORAL TABLET EXTENDED RELEASE 24 HOUR 1 tab po daily PSEUDOEPHEDRINE HCL 70201595394 No Longer Active Raul Sherman MD Active RED YEAST RICE 600 MG ORAL CAPSULE 1 pill by mouth daily RED YEAST RICE EXTRACT 43386715120 No Longer Active Tesfaye Sherman MD Active REPHRESH PRO-B ORAL CAPSULE 1 tablet daily LACT OBACILLUS 58536295785 No Longer Active Tesfaye Sherman MD Active SUDAFED 12 HOUR 120 MG ORAL TABLET EXTENDED RELEASE 12 HOUR 1 pill twice daily if needed for congestion PSEUDOEPHEDRINE HCL 29829217703 A ctive Tesfaye Sherman MD Active ABILIFY 2 MG ORAL TABLET 1 by mouth daily. MARIA ELENA PIPRAZOLE 18221870416 Active Tesfaye Sherman MD Active CYMBALTA 60 MG ORAL CAPSULE DELAYED RELEASE PARTICLES 1 cap by mouth daily for pain DULOXETINE HCL 54444516639 Active Tesfaye Owusu Active DIFLUCAN 100 MG ORAL TABLET 1 tablet by mouth daily 20 20/06/06 FLUCONAZOLE 33990824874 No Longer Active Tesfaye Sherman MD Acti ve PREDNISONE 20 MG ORAL TABLET 1 tablet by mouth twice d aily for 3 days, then 1 tablet daily for 3 days PREDNISONE 37659503703 No L onger Active Tesfaye Sherman MD Active BACTRIM DS 800-160 MG ORAL TABLET 1 tab by mouth twice daily 201 06/09/02 TRIMETHOPRIM-SULFAMETHOXAZOLE 24232001687 No Longer Active A mirna Dominguez Active DIFLUCAN 100 MG ORAL TABLET 1 tablet by mouth daily 20 20/05/01 FLUCONAZOLE 49870739297 No Longer Active Tesfaye Sherman MD Acti ve ZITHROMAX 250 MG ORAL TABLET 2 po today, then 1 po q days 2-5 20 20/04/28 AZITHROMYCIN 97147828490 No Longer Active Tesfaye Sherman MD Active MECLIZINE HCL 25 MG ORAL TABLET one tab po qday prn dizziness 20 17/09/06 MECLIZINE HCL 42813366720 No Longer Active Tesfaye Sherman MD Active PROAIR HFA 108 (90 BASE) MCG/ACT INHALATION AEROSOL SO LUTION 1 puff every 6 hours as needed ALBUTEROL SULFATE 18154968307 No Long er Active Tesfaye Sherman MD Active PREDNISONE 20 MG ORAL TABLET 1 tab twice daily for 3 d ay, then one daily for three days PREDNISONE 57591142896 No Longer Active Tesfaye Sherman MD Active MECLIZINE HCL 25 MG ORAL TABLET one 4 times a day as needed for dizziness MECLIZINE HCL 63275194758 Active Tesfaye Sherman MD Active AMOXICILLIN 500 MG ORAL CAPSULE 1 cap by mouth three times a day AMOXICILLIN 33478127167 No Longer Active Laurenceyohana Lopezduyen Acti ve DIFLUCAN 100 MG ORAL TABLET 1 tablet by mouth daily 19/08/26 FLUCONAZOLE 97244043391 No Longer Active Tesfaye Sherman MD Acti ve BACTRIM DS 800-160 MG ORAL TABLET 1 tab by mouth twice daily 201 05/10/28 TRIMETHOPRIM-SULFAMETHOXAZOLE 03439262553 No Longer Active A mirna Lopezduyen Active FOSAMAX 70 MG ORAL TABLET 1 po qweek. Take 30min prio r to first food/drink. Avoid lying down x 1 hour. ALENDRONATE SODIUM 54924897 144 No Longer Active Laurence Angelica Active CYMBALTA 60 MG ORAL CAPSULE DELAYED RELEASE PARTICLES Take 1 tablet by mouth daily DULOXETINE HCL 33200053329 No Longer Active Edith Burch MD Active CYMBALTA 30 MG ORAL CAPSULE DELAYED RELEASE PARTICLES 1 cap by mouth daily with 60mg DULOXETINE HCL 97444754451 No Longer Active Jordan Burch MD Active FISH OIL 1000 MG ORAL CAPSULE DELAYED RELEASE 1 pill b y mouth daily for cholesterol OMEGA-3 FATTY ACIDS 24419103631 Active Cee Jaffe LPN Active DIFLUCAN 100 MG ORAL TABLET 1 tablet by mouth daily 20 19/03/05 FLUCONAZOLE 65658478131 No Longer Active Tesfaye Sherman MD Acti ve BACTRIM DS 800-160 MG ORAL TABLET 1 tab by mouth twice daily 201 05/06/28 TRIMETHOPRIM-SULFAMETHOXAZOLE 49457904885 No Longer Active Umer Sherman MD Active BACTRIM DS 800-160 MG ORAL TABLET 1 tab by mouth twice daily 201 05/04/15 TRIMETHOPRIM-SULFAMETHOXAZOLE 40818992856 No Longer Active Umer Sherman MD Active DIFLUCAN 150 MG ORAL TABLET 1 tablet by mouth daily 20 18/09/20 FLUCONAZOLE 76535394566 No Longer Active Tesfaye Sherman MD Acti ve BACTRIM DS 800-160 MG ORAL TABLET 1 tab by mouth twice daily 201 04/13/17 TRIMETHOPRIM-SULFAMETHOXAZOLE 64937063520 No Longer Active Umer Sherman MD Active ROPINIROLE HCL 0.25 MG ORAL TABLET 1 TAB PO Q HS ROPINIROLE HCL 44265902233 Active Tesfaye Sherman MD Active CEFTIN 250 MG ORAL TABLET 1 tablet twice daily x 7 days CEFUROXIME AXETIL 53560513452 No Longer Active Tesfaye Sherman MD Active DIFLUCAN 100 MG ORAL TABLET 1 tablet by mouth every other da y for 2 doses FLUCONAZOLE 59389770703 No Longer Active Tesfaye barron MD Active DIFLUCAN 100 MG ORAL TABLET 1 tablet by mouth daily X 3 DAYS 201 04/09/01 FLUCONAZOLE 78831486030 No Longer Active Rj Moss DO Ac tive MIRTAZAPINE 15 MG ORAL TABLET 1/2 tab by mouth at bedtime. 03/13 MIRTAZAPINE 64188825892 No Longer Active Tesfaye Sherman MD Active BACTRIM DS 800-160 MG ORAL TABLET 1 tab by mouth twice daily 201 04/09/01 TRIMETHOPRIM-SULFAMETHOXAZOLE 32917159263 No Longer Active Umer Sherman MD Active PRAMIPEXOLE DIHYDROCHLORIDE 0.125 MG ORAL TABLET take 1 tablet po qhs for restless leg syndrome. PRAMIPEXOLE DIHYDROCHLORI DE 99596188498 No Longer Active Tesfaye Sherman MD Active MAGNESIUM 400 MG ORAL TABLET 1 tab po daily MAGNE SIUM 82221459230 Active Chelsea Cardenas APRN Active CETIRIZINE HCL 5 MG ORAL TABLET Take 1 tablet by mouth daily CETIRIZINE HCL 00699592077 No Longer Active Chelsea Cardenas APRN Activ e TRIMETHOPRIM 100 MG ORAL TABLET 1/2 qd TRIM ETHOPRIM 00230104989 No Longer Active Chelsea Cardenas APRN Active BACTRIM DS 800-160 MG ORAL TABLET 1 tab by mouth twice daily 201 04/04/11 TRIMETHOPRIM-SULFAMETHOXAZOLE 41666495842 No Longer Active Umer Sherman MD Active BACTRIM DS 800-160 MG ORAL TABLET 1 tab by mouth twice daily X 10 DAYS TRIMETHOPRIM-SULFAMETHOXAZOLE 80304118320 No Longer Active Tesfaye Sherman MD Active AMOXICILLIN 500 MG ORAL CAPSULE 1 cap by mouth three times a day AMOXICILLIN 51174062288 No Longer Active Adriana Arredondo, [facility] A ctive B-12 1000 MCG ORAL LOZENGE 1 tab po daily CYANO COBALAMIN 41453160613 Active Tesfaye Sherman MD Active VITAMIN D3 2000 UNIT ORAL TABLET 1 daily, for vitamin D deficien cy CHOLECALCIFEROL 51093164137 No Longer Active Tesfaye Sherman MD Active TIZANIDINE HCL 2 MG ORAL TABLET take 1-2 tablet by mo uth every day at bedtime at 9pm PRN TIZANIDINE HCL 03304811613 Active Tesfaye hewitt MD Active ZITHROMAX 250 MG ORAL TABLET 2 po today, then 1 po q days 2-5 20 15/02/10 AZITHROMYCIN 66193751716 No Longer Active Tesfaye Sherman MD Active BACTRIM DS 800-160 MG ORAL TABLET 1 tab by mouth twice daily 201 03/03/23 TRIMETHOPRIM-SULFAMETHOXAZOLE 37757146334 No Longer Active Umer Sherman MD Active [facility] NIACIN FLUSH FREE 400-100 MG ORAL CAPSULE 1 daily NIACIN-INOSITOL 03526906934 Active Kayla Cooper MD Activ e DIFLUCAN 150 MG ORAL TABLET 1 qd FLUCONAZOL E 34992692293 No Longer Active Kayla Cooper MD Active FLUTICASONE PROPIONATE 50 MCG/ACT NASAL SUSPENSION 1 spray each nostril twice daily FLUTICASONE PROPIONATE 19750045032 Active Umer Sherman MD Active LOVASTATIN 20 MG ORAL TABLET Take 1 tablet by mouth daily LOVASTATIN 42931445075 No Longer Active Tesfaye Sherman MD Acti ve MELOXICAM 7.5 MG ORAL TABLET 1 tablet by mouth daily 2 MELOXICAM 48917024104 No Longer Active Tesfaye Sherman MD Acti ve GABAPENTIN 300 MG ORAL CAPSULE Take two tablets by mouth every e vening GABAPENTIN 49641607173 No Longer Active Edith Burch MD A ctive BACLOFEN 10 MG ORAL TABLET Take one tablet by mouth three times a d ay BACLOFEN 35535122145 Active J John Cooper MD Active GABAPENTIN 300 MG ORAL CAPSULE Take two tablets by mouth every e vening GABAPENTIN 300 MG ORAL CAPSULE 417114 GABAPENTIN I nactive MELOXICAM 7.5 MG ORAL TABLET 1 tablet by mouth daily 2 MELOXICAM 7.5 MG ORAL TABLET 460758 MELOXICAM Inactive LOVASTATIN 20 MG ORAL TABLET Take 1 tablet by mouth daily LOVASTATIN 20 MG ORAL TABLET 397572 LOVASTATIN Inactive DIFLUCAN 150 MG ORAL TABLET 1 qd DIFLUCAN 150 MG ORAL TABLET 069855 FLUCONAZOLE Inactive VITAMIN D3 2000 UNIT ORAL TABLET 1 daily, for vitamin D deficien cy VITAMIN D3 2000 UNIT ORAL TABLET CHOLECALCIFEROL Inactive AMOXICILLIN 500 MG ORAL CAPSULE 1 cap by mouth three times a day AMOXICILLIN 500 MG ORAL CAPSULE 960515 AMOXICILLIN Inactive BACTRIM DS 800-160 MG ORAL TABLET 1 tab by mouth twice daily X 10 DAYS BACTRIM DS 800-160 MG ORAL TABLET 824632 TRIMETHOPRIM-SULFAMETHOXAZOLE Inactive TRIMETHOPRIM 100 MG ORAL TABLET 1/2 qd 7 TRIMETHOPRIM 100 MG ORAL TABLET 394265 TRIMETHOPRIM Inactive CETIRIZINE HCL 5 MG ORAL TABLET Take 1 tablet by mouth daily CETIRIZINE HCL 5 MG ORAL TABLET 0324425 CETIRIZINE HCL Inactive PRAMIPEXOLE DIHYDROCHLORIDE 0.125 MG ORAL TABLET take 1 tablet po qhs for restless leg syndrome. PRAMIPEXOLE DIHYD ROCHLORIDE 0.125 MG ORAL TABLET 662780 PRAMIPEXOLE DIHYDROCHLORIDE Inactive MIRTAZAPINE 15 MG ORAL TABLET 1/2 tab by mouth at bedtime. 03/13 MIRTAZAPINE 15 MG ORAL TABLET 260205 MIRTAZAPINE In active DIFLUCAN 100 MG ORAL TABLET 1 tablet by mouth daily X 3 DAYS 201 04/09/01 DIFLUCAN 100 MG ORAL TABLET 348569 FLUCONAZOLE Inac tive DIFLUCAN 100 MG ORAL TABLET 1 tablet by mouth every other da y for 2 doses DIFLUCAN 100 MG ORAL TABLET 571185 FLUCONAZOLE Inactive CEFTIN 250 MG ORAL TABLET 1 tablet twice daily x 7 days CEFTIN 250 MG ORAL TABLET CEFUROXIME AXETIL Inactive CYMBALTA 30 MG ORAL CAPSULE DELAYED RELEASE PARTICLES 1 cap by mouth daily with 60mg CYMBALTA 30 MG ORAL CAPSULE DELAYED RELEASE PARTICLES 577645 DULOXETINE HCL Inactive CYMBALTA 60 MG ORAL CAPSULE DELAYED RELEASE PARTICLES Take 1 tablet by mouth daily CYMBALTA 60 MG ORAL CAPSULE DELAYED RELEA SE PARTICLES 204464 DULOXETINE HCL Inactive FOSAMAX 70 MG ORAL TABLET 1 po qweek. Take 30min prio r to first food/drink. Avoid lying down x 1 hour. FOSAMAX 70 MG ORAL TA BLET 590642 ALENDRONATE SODIUM Inactive DIFLUCAN 100 MG ORAL TABLET 1 tablet by mouth daily 19/08/26 DIFLUCAN 100 MG ORAL TABLET 467003 FLUCONAZOLE Inactive PREDNISONE 20 MG ORAL TABLET 1 tab twice daily for 3 d ay, then one daily for three days PREDNISONE 20 MG ORAL TABLET 266123 PREDNIS ONE Inactive PROAIR HFA 108 (90 BASE) MCG/ACT INHALATION AEROSOL SO LUTION 1 puff every 6 hours as needed PROAIR HFA 108 (90 B ASE) MCG/ACT INHALATION AEROSOL SOLUTION ALBUTEROL SULFATE Inactive MECLIZINE HCL 25 MG ORAL TABLET one tab po qday prn dizziness 20 17/09/06 MECLIZINE HCL 25 MG ORAL TABLET 439063 MECLIZINE HCL Inactive PREDNISONE 20 MG ORAL TABLET 1 tablet by mouth twice d aily for 3 days, then 1 tablet daily for 3 days PREDNISONE 20 MG ORAL TA BLET 958943 PREDNISONE Inactive DIFLUCAN 100 MG ORAL TABLET 1 tablet by mouth daily 20 20/06/06 DIFLUCAN 100 MG ORAL TABLET 500377 FLUCONAZOLE Inactive REPHRESH PRO-B ORAL CAPSULE 1 tablet daily REPHRESH PRO-B ORAL CAPSULE LACTOBACILLUS Inactive RED YEAST RICE 600 MG ORAL CAPSULE 1 pill by mouth daily RED YEAST RICE 600 MG ORAL CAPSULE 578412 RED YEAST RICE EXTRACT In active SUDAFED [...] 20 19/02/09 DIFLUCAN 100 MG ORAL TABLET 361517 FLUCONAZOLE Inactive DIFLUCAN 100 MG ORAL TABLET 1 tablet by mouth daily 20 19/02/09 DIFLUCAN 100 MG ORAL TABLET 670246 FLUCONAZOLE Inactive VENLAFAXINE HCL 75 MG ORAL TABLET 1 am 1/2 at noon 201 07/07/09 VENLAFAXINE HCL 75 MG ORAL TABLET 373880 VENLAFAXINE HCL Inacti ve BACTRIM DS 800-160 MG ORAL TABLET 1 tab by mouth twice daily 201 03/03/23 BACTRIM DS 800-160 MG ORAL TABLET 162620 TRIMETHOPRIM-SULFAMETHOXAZOLE Inactive ZITHROMAX 250 MG ORAL TABLET 2 po today, then 1 po q days 2-5 20 15/02/10 ZITHROMAX 250 MG ORAL TABLET 646439 AZITHROMYCIN Mayela ctive BACTRIM DS 800-160 MG [...] 05/06/28 BACTRIM DS 800-160 MG ORAL TABLET 679576 TRIMETHOPRIM-SULFAMETHOXAZOLE Inactive DIFLUCAN 100 MG ORAL TABLET 1 tablet by mouth daily 20 19/03/05 DIFLUCAN 100 MG ORAL TABLET 988558 FLUCONAZOLE Inactive BACTRIM DS 800-160 MG ORAL TABLET 1 tab by mouth twice daily 201 05/10/28 BACTRIM DS 800-160 MG ORAL TABLET 829684 TRIMETHOPRIM-SULFAMETHOXAZOLE Inactive AMOXICILLIN 500 MG ORAL CAPSULE 1 cap by mouth three times a day AMOXICILLIN 500 MG ORAL CAPSULE 822119 AMOXICILLIN Inactive ZITHROMAX 250 MG ORAL TABLET 2 po today, then 1 po q days 2-5 20 20/04/28 ZITHROMAX 250 MG ORAL TABLET 156223 AZITHROMYCIN [place] ctive DIFLUCAN 100 MG ORAL TABLET 1 tablet by mouth daily 20 20/05/01 DIFLUCAN 100 MG ORAL TABLET 954802 FLUCONAZOLE Inactive BACTRIM DS 800-160 MG ORAL TABLET 1 tab by mouth twice daily 201 06/09/02 BACTRIM DS 800-160 MG ORAL TABLET 123507 TRIMETHOPRIM-SULFAMETHOXAZOLE Inactive Advance Directives Directive Description Start Date PERMISSION TO SHARE DISCUSSED WITH PATIENT -- NO DECISION MADE DURABLE POWER OF FLOOR WINDER FOR HEALTHCARE DISCUSED WITH PATIENT -- FULL [...] dipstick Trace-lysed Negative sodium, serum 139 mmol/L 067-621 2218/11/07 carbon dioxide, venous blood 28.4 mmol/L 21.0-32 [...] 5.0-8.5 Encounters Code Encounter Date Provider Facility CPT-10004 Level 3 Est. Patient 17:27:08 CDT León hernandez [facility] CPT-93749 [id number] Vst-Est Level IV 14:00:[address] Tesfaye Sherman MD [facility]-14438 [id number] Vst-Est Level IV 19:27:[address] Tesfaye Sherman MD [facility]-81924 [id number] Vst-Est Level IV 10:41:41 C BRIDGET Sherman MD [facility]-00903 [id number] Vst-Est Level III 09:40:56 CDT Tesfaye Sherman MD [facility] CPT-46068 Level 4 Est. Patient 22:18:12 CDT Tesfaye pearson MD [facility] CPT-13579 Level 4 Est. Patient 14:44:33 TECHNICAL ENGINEER Tesfaye pearson MD [facility] CPT-17560 Level 4 Est. Patient 13:55:29 TECHNICAL ENGINEER Tesfaye pearson MD [facility] CPT-41280 Level 4 Est. Patient 17:07:34 TECHNICAL ENGINEER Tesfaye pearson MD [facility] CPT-51994 Level 4 Est. Patient 13:56:54 CDT Tesfaye pearson MD [facility] CPT-53348 Level 4 Est. Patient 13:24:25 CDT Chelsea sanz [facility] CPT-64474 Level 4 Est. Patient 09:14:56 CDT Tesfaye pearson MD [facility]-64804 Level 4 Est. Patient 18:40:25 TECHNICAL ENGINEER Tesfaye pearson MD [facility]-90188 Level 4 Est. Patient 18:13:07 TECHNICAL ENGINEER Tesfaye pearson MD [facility]-82486 Level 3 Est. Patient 10:46:32 CDT Rj cotto DO [facility] CPT-24719 Level 4 Est. Patient 20:19:25 CDT Tesfaye pearson MD [facility]-04807 Level 3 Est. Patient 09:07:31 CDT Tesfaye pearson MD [facility]-74119 Level 4 Est. Patient 13:12:56 CDT Tesfaye pearson MD [facility]-71045 Level 4 Est. Patient 21:24:55 TECHNICAL ENGINEER Tesfaye pearson MD [facility]-15039 Level 3 Est. Patient 13:45:04 TECHNICAL ENGINEER Tesfaye pearson MD [facility] CPT-77097 Level 4 Est. Patient 13:50:45 CDT Tesfaye pearson MD [facility] CPT-09931 Level 3 Est. Patient 10:16:10 CDT Tesfaye pearson MD [facility] CPT-62730 Level 3 Est. Patient 16:36:07 TECHNICAL ENGINEER Kayla jameson MD [facility]-19739 Level 4 Est. Patient 16:00:14 TECHNICAL ENGINEER Tesfaye pearson MD [facility]-19385 Level 4 Est. Patient 11:02:24 TECHNICAL ENGINEER Tesfaye pearson MD [facility]-56134 Level 3 Est. Patient 20:21:43 TECHNICAL ENGINEER Kayla jameson MD [facility]-12586 Level 3 Est. Patient 13:27:28 TECHNICAL ENGINEER Kayla jameson MD [facility] CPT-90141 Level 4 Est. Patient 15:57:17 TECHNICAL ENGINEER Tesfaye pearson MD [facility] CPT-08555 Level 3 New Patient 13:25:47 CDT Tesfaye kidd MD [facility] CPT-11008 Level 3 New Patient 17:22:21 CDT Kayla angel [facility] Procedures Code Procedure Name Date Entry Date Standard Desc ription CPT-G0439 Subsequent Annual Wellness Exam 22:18:11 CDT CPT-08822 Bone Density - XRAY USE ONLY 11:43:58 CDT 2 CPT-42611 Bone Density - XRAY USE ONLY 10:05:16 CDT 2 CPT-94763 Prv Med New Pt 40-64 yrs 18:19:25 CDT 2016 CPT-77521 Foot, right, comp min 3V - XRAY USE ONLY 10:38:34 CDT CPT-G0439 Subsequent Annual Wellness Exam 13:55:04 CDT CPT-G0438 Initial Annual Wellness Exam 11:23:17 CD T CPT-J2930 Solu Medrol 125 mg (Methyl Prednisolone Sodium Succinate) 17:29:12 TECHNICAL ENGINEER CPT-38151 Abx/Therapy Injection 17:29:11 TECHNICAL ENGINEER CPT-J2930 Solu Medrol 125 mg (Methyl Prednisolone Sodium Succinate) 12:34:38 TECHNICAL ENGINEER CPT-J3420 Vitamin B12 1000mcg (Cyanocobalamin) 09:12:55 CDT CPT-J3420 Vitamin B12 1000mcg (Cyanocobalamin) 16:28:06 TECHNICAL ENGINEER CPT-02743 Venipuncture Draw Fee 08:39:53 CDT CPT-J3420 Vitamin B12 1000mcg (Cyanocobalamin) 08:46:22 CDT CPT-23821 Abx/Therapy Injection 08:46:22 CDT CPT-J3420 Vitamin B12 1000mcg (Cyanocobalamin) 08:41:26 CDT CPT-87546 Abx/Therapy Injection 08:41:26 CDT CPT-J3420 Vitamin B12 1000mcg (Cyanocobalamin) 08:57:15 CDT CPT-88493 Abx/Therapy Injection 08:57:15 CDT CPT-J3420 Vitamin B12 1000mcg (Cyanocobalamin) 10:59:03 CDT CPT-87985 Abx/Therapy Injection 10:59:03 CDT CPT-J3420 Vitamin B12 1000mcg (Cyanocobalamin) 15:05:39 CDT CPT-39190 Abx/Therapy Injection 15:05:39 CDT CPT-J3420 Vitamin B12 1000mcg (Cyanocobalamin) 13:50:45 CDT CPT-J3420 Vitamin B12 1000mcg (Cyanocobalamin) 08:48:55 CDT CPT-04944 Abx/Therapy Injection 08:48:55 CDT CPT-J3420 Vitamin B12 1000mcg (Cyanocobalamin) 09:14:54 CDT CPT-16419 Abx/Therapy Injection 09:14:54 CDT CPT-J3420 Vitamin B12 1000mcg (Cyanocobalamin) 09:06:06 CDT CPT-66484 Abx/Therapy Injection 09:06:06 CDT CPT-J3420 Vitamin B12 1000mcg (Cyanocobalamin) 09:49:14 CDT CPT-78116 Abx/Therapy Injection 09:49:14 CDT CPT-J3420 Vitamin B12 1000mcg (Cyanocobalamin) 09:10:30 TECHNICAL ENGINEER CPT-14139 Abx/Therapy Injection 09:10:30 TECHNICAL ENGINEER CPT-J3420 Vitamin B12 1000mcg (Cyanocobalamin) 09:11:07 TECHNICAL ENGINEER CPT-33785 Abx/Therapy Injection 09:11:07 TECHNICAL ENGINEER CPT-J3420 Vitamin B12 1000mcg (Cyanocobalamin) 09:57:03 TECHNICAL ENGINEER CPT-67020 Abx/Therapy Injection 09:57:03 TECHNICAL ENGINEER CPT-J3420 Vitamin B12 1000mcg (Cyanocobalamin) 09:23:21 TECHNICAL ENGINEER CPT-79918 Abx/Therapy Injection 09:23:21 TECHNICAL ENGINEER CPT-27421 Urine Dip (Floor Use Only) 20:21:44 TECHNICAL ENGINEER 201 02/12/11 CPT-83430 UA Dip Auto (Floor Use Only) 10:04:39 TECHNICAL ENGINEER 2 CPT-59429 Urine Dip (Floor Use Only) 13:27:28 TECHNICAL ENGINEER 201 02/12/01 CPT-57341 Bladder Scan 13:27:28 TECHNICAL ENGINEER CPT-77822 Abd single AP View 14:30:51 TECHNICAL ENGINEER CPT-OV Office Visit 10:15:43 CDT CPT-54218 Urine Dip (Floor Use Only) 17:22:21 CDT 201 02/09/02 CPT-91256 Bladder Scan 17:22:21 CDT
--- OUTSIDE RECORDS SUMMARY | 2020-05-05 11:37 | XMS REPORT | Clinical Summary ---
Author Author Talon, Jeri Wood Organization De Correspondent Address Unknown Phone Unavailable Allergies, Adverse Reactions, [...] Routine general medical examination at a [facility] Body Mass Index 21.0-21.9 Adult [...] bilateral 782.3 Active 201 07/07/09 León Kodi [employer] Edema FH Depression ICD-V17.0 Inactive Tesfaye Sherman [...] 1 pill by mough daily 2 HYDROCHLOROTHIAZIDE 34464044787 Active León Mariee APRN Active VENLAFAXINE HCL 75 MG ORAL TABLET 1 am 1/2 at noon 201 07/07/09 VENLAFAXINE HCL 31850398837 No Longer Active León Mariee APRN Act trent DIFLUCAN 100 MG ORAL TABLET 1 tablet by mouth daily 20 19/02/09 FLUCONAZOLE 75008074468 No Longer Active León Kodi [employer] Active DIFLUCAN 100 MG ORAL TABLET 1 tablet by mouth daily 20 19/02/09 FLUCONAZOLE 22724290562 No Longer Active Leónkash Mariee [employer] MAN Active GABAPENTIN 300 MG ORAL CAPSULE 1 po daily GABAPEN TIN 92172452697 Active León Kodi [employer] Active OXYCODONE-ACETAMINOPHEN 5-325 MG ORAL TABLET Take one tablet by mouth every 6 hours 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 Use sparingly OXYCODONE-ACETAMINOPHEN 33163263084 Active Tesfaye villar MD Active CLONAZEPAM 0.5 MG ORAL TABLET Take 1/2 qam, and 1/2 qpm CLONAZEPAM 39195399217 Active Tesfaye Sherman MD Active PRELIEF 340 (65-50) MG (CA-P) ORAL TABLET CALCIUM GLYCEROPHOSPHATE 39196738756 No Longer Active Tesfaye Sherman MD Active SUDAFED 24 HOUR 240 MG ORAL TABLET EXTENDED RELEASE 24 HOUR 1 tab po daily PSEUDOEPHEDRINE HCL 19176090536 No Longer Active Raul Sherman MD Active RED YEAST RICE 600 MG ORAL CAPSULE 1 pill by mouth daily RED YEAST RICE EXTRACT 63821899901 No Longer Active Tesfaye Sherman MD Active REPHRESH PRO-B ORAL CAPSULE 1 tablet daily LACT OBACILLUS 53203779494 No Longer Active Tesfaye Sherman MD Active SUDAFED 12 HOUR 120 MG ORAL TABLET EXTENDED RELEASE 12 HOUR 1 pill twice daily if needed for congestion PSEUDOEPHEDRINE HCL 15757197553 A ctive Tesfaye Sherman MD Active ABILIFY 2 MG ORAL TABLET 1 by mouth daily. MARIA ELENA PIPRAZOLE 94589666667 Active Tesfaye Sherman MD Active CYMBALTA 60 MG ORAL CAPSULE DELAYED RELEASE PARTICLES 1 cap by mouth daily for pain DULOXETINE HCL 18488746963 Active Tesfaye Owusu Active DIFLUCAN 100 MG ORAL TABLET 1 tablet by mouth daily 20 20/06/06 FLUCONAZOLE 07479284320 No Longer Active Tesfaye Sherman MD Acti ve PREDNISONE 20 MG ORAL TABLET 1 tablet by mouth twice d aily for 3 days, then 1 tablet daily for 3 days PREDNISONE 16375584166 No L onger Active Tesfaye Sherman MD Active BACTRIM DS 800-160 MG ORAL TABLET 1 tab by mouth twice daily 201 06/09/02 TRIMETHOPRIM-SULFAMETHOXAZOLE 04379301573 No Longer Active A mirna Dominguez Active DIFLUCAN 100 MG ORAL TABLET 1 tablet by mouth daily 20 20/05/01 FLUCONAZOLE 50698473389 No Longer Active Tesfaye Sherman MD Acti ve ZITHROMAX 250 MG ORAL TABLET 2 po today, then 1 po q days 2-5 20 20/04/28 AZITHROMYCIN 98588206396 No Longer Active Tesfaye Sherman MD Active MECLIZINE HCL 25 MG ORAL TABLET one tab po qday prn dizziness 20 17/09/06 MECLIZINE HCL 29684460387 No Longer Active Tesfaye Sherman MD Active PROAIR HFA 108 (90 BASE) MCG/ACT INHALATION AEROSOL SO LUTION 1 puff every 6 hours as needed ALBUTEROL SULFATE 09946445747 No Long er Active Tesfaye Sherman MD Active PREDNISONE 20 MG ORAL TABLET 1 tab twice daily for 3 d ay, then one daily for three days PREDNISONE 31640629364 No Longer Active Tesfaye Sherman MD Active MECLIZINE HCL 25 MG ORAL TABLET one 4 times a day as needed for dizziness MECLIZINE HCL 01212797915 Active Tesfaye Sherman MD Active AMOXICILLIN 500 MG ORAL CAPSULE 1 cap by mouth three times a day AMOXICILLIN 30257247884 No Longer Active Laurenceyohana Lopezduyen Acti ve DIFLUCAN 100 MG ORAL TABLET 1 tablet by mouth daily 19/08/26 FLUCONAZOLE 25211000153 No Longer Active Tesfaye Sherman MD Acti ve BACTRIM DS 800-160 MG ORAL TABLET 1 tab by mouth twice daily 201 05/10/28 TRIMETHOPRIM-SULFAMETHOXAZOLE 80780962083 No Longer Active A mirna Lopezduyen Active FOSAMAX 70 MG ORAL TABLET 1 po qweek. Take 30min prio r to first food/drink. Avoid lying down x 1 hour. ALENDRONATE SODIUM 06466869 144 No Longer Active Laurence Angelica Active CYMBALTA 60 MG ORAL CAPSULE DELAYED RELEASE PARTICLES Take 1 tablet by mouth daily DULOXETINE HCL 46854156753 No Longer Active Edith Burch MD Active CYMBALTA 30 MG ORAL CAPSULE DELAYED RELEASE PARTICLES 1 cap by mouth daily with 60mg DULOXETINE HCL 50159892206 No Longer Active Jordan Burch MD Active FISH OIL 1000 MG ORAL CAPSULE DELAYED RELEASE 1 pill b y mouth daily for cholesterol OMEGA-3 FATTY ACIDS 00468508721 Active Cee Jaffe LPN Active DIFLUCAN 100 MG ORAL TABLET 1 tablet by mouth daily 20 19/03/05 FLUCONAZOLE 85952366400 No Longer Active Tesfaye Sherman MD Acti ve BACTRIM DS 800-160 MG ORAL TABLET 1 tab by mouth twice daily 201 05/06/28 TRIMETHOPRIM-SULFAMETHOXAZOLE 74056940364 No Longer Active Umer Sherman MD Active BACTRIM DS 800-160 MG ORAL TABLET 1 tab by mouth twice daily 201 05/04/15 TRIMETHOPRIM-SULFAMETHOXAZOLE 79550766250 No Longer Active Umer Sherman MD Active DIFLUCAN 150 MG ORAL TABLET 1 tablet by mouth daily 20 18/09/20 FLUCONAZOLE 20201003733 No Longer Active Tesfaye Sherman MD Acti ve BACTRIM DS 800-160 MG ORAL TABLET 1 tab by mouth twice daily 201 04/13/17 TRIMETHOPRIM-SULFAMETHOXAZOLE 96223923114 No Longer Active Umer Sherman MD Active ROPINIROLE HCL 0.25 MG ORAL TABLET 1 TAB PO Q HS ROPINIROLE HCL 11114472451 Active Tesfaye Sherman MD Active CEFTIN 250 MG ORAL TABLET 1 tablet twice daily x 7 days CEFUROXIME AXETIL 91218547017 No Longer Active Tesfaye Sherman MD Active DIFLUCAN 100 MG ORAL TABLET 1 tablet by mouth every other da y for 2 doses FLUCONAZOLE 32126632990 No Longer Active Tesfaye barron MD Active DIFLUCAN 100 MG ORAL TABLET 1 tablet by mouth daily X 3 DAYS 201 04/09/01 FLUCONAZOLE 35146928135 No Longer Active Rj Moss DO Ac tive MIRTAZAPINE 15 MG ORAL TABLET 1/2 tab by mouth at bedtime. 03/13 MIRTAZAPINE 39611439083 No Longer Active Tesfaye Sherman MD Active BACTRIM DS 800-160 MG ORAL TABLET 1 tab by mouth twice daily 201 04/09/01 TRIMETHOPRIM-SULFAMETHOXAZOLE 29506446414 No Longer Active Umer Sherman MD Active PRAMIPEXOLE DIHYDROCHLORIDE 0.125 MG ORAL TABLET take 1 tablet po qhs for restless leg syndrome. PRAMIPEXOLE DIHYDROCHLORI DE 57328676580 No Longer Active Tesfaye Sherman MD Active MAGNESIUM 400 MG ORAL TABLET 1 tab po daily MAGNE SIUM 45758708245 Active Chelsea Cardenas APRN Active CETIRIZINE HCL 5 MG ORAL TABLET Take 1 tablet by mouth daily CETIRIZINE HCL 72643017450 No Longer Active Chelsea Cardenas APRN Activ e TRIMETHOPRIM 100 MG ORAL TABLET 1/2 qd TRIM ETHOPRIM 34388652067 No Longer Active Chelsea Cardenas APRN Active BACTRIM DS 800-160 MG ORAL TABLET 1 tab by mouth twice daily 201 04/04/11 TRIMETHOPRIM-SULFAMETHOXAZOLE 01685341437 No Longer Active Umer Sherman MD Active BACTRIM DS 800-160 MG ORAL TABLET 1 tab by mouth twice daily X 10 DAYS TRIMETHOPRIM-SULFAMETHOXAZOLE 96625263846 No Longer Active Tesfaye Sherman MD Active AMOXICILLIN 500 MG ORAL CAPSULE 1 cap by mouth three times a day AMOXICILLIN 36586981410 No Longer Active Adriana Arredondo, [facility] A ctive B-12 1000 MCG ORAL LOZENGE 1 tab po daily CYANO COBALAMIN 62498318492 Active Tesfaye Sherman MD Active VITAMIN D3 2000 UNIT ORAL TABLET 1 daily, for vitamin D deficien cy CHOLECALCIFEROL 09190404844 No Longer Active Tesfaye Sherman MD Active TIZANIDINE HCL 2 MG ORAL TABLET take 1-2 tablet by mo uth every day at bedtime at 9pm PRN TIZANIDINE HCL 45400364726 Active Tesfaye hewitt MD Active ZITHROMAX 250 MG ORAL TABLET 2 po today, then 1 po q days 2-5 20 15/02/10 AZITHROMYCIN 72728431649 No Longer Active Tesfaye Sherman MD Active BACTRIM DS 800-160 MG ORAL TABLET 1 tab by mouth twice daily 201 03/03/23 TRIMETHOPRIM-SULFAMETHOXAZOLE 79323333415 No Longer Active Umer Sherman MD Active [facility] NIACIN FLUSH FREE 400-100 MG ORAL CAPSULE 1 daily NIACIN-INOSITOL 40104570119 Active Kayla Cooper MD Activ e DIFLUCAN 150 MG ORAL TABLET 1 qd FLUCONAZOL E 11685527945 No Longer Active Kayla Cooper MD Active FLUTICASONE PROPIONATE 50 MCG/ACT NASAL SUSPENSION 1 spray each nostril twice daily FLUTICASONE PROPIONATE 24314966088 Active Umer Sherman MD Active LOVASTATIN 20 MG ORAL TABLET Take 1 tablet by mouth daily LOVASTATIN 14667820508 No Longer Active Tesfaye Sherman MD Acti ve MELOXICAM 7.5 MG ORAL TABLET 1 tablet by mouth daily 2 MELOXICAM 37874740955 No Longer Active Tesfaye Sherman MD Acti ve GABAPENTIN 300 MG ORAL CAPSULE Take two tablets by mouth every e vening GABAPENTIN 78787235276 No Longer Active Edith Burch MD A ctive BACLOFEN 10 MG ORAL TABLET Take one tablet by mouth three times a d ay BACLOFEN 66824598393 Active J John Cooper MD Active GABAPENTIN 300 MG ORAL CAPSULE Take two tablets by mouth every e vening GABAPENTIN 300 MG ORAL CAPSULE 709557 GABAPENTIN I nactive MELOXICAM 7.5 MG ORAL TABLET 1 tablet by mouth daily 2 MELOXICAM 7.5 MG ORAL TABLET 816593 MELOXICAM Inactive LOVASTATIN 20 MG ORAL TABLET Take 1 tablet by mouth daily LOVASTATIN 20 MG ORAL TABLET 232778 LOVASTATIN Inactive DIFLUCAN 150 MG ORAL TABLET 1 qd DIFLUCAN 150 MG ORAL TABLET 524847 FLUCONAZOLE Inactive VITAMIN D3 2000 UNIT ORAL TABLET 1 daily, for vitamin D deficien cy VITAMIN D3 2000 UNIT ORAL TABLET CHOLECALCIFEROL Inactive AMOXICILLIN 500 MG ORAL CAPSULE 1 cap by mouth three times a day AMOXICILLIN 500 MG ORAL CAPSULE 415580 AMOXICILLIN Inactive BACTRIM DS 800-160 MG ORAL TABLET 1 tab by mouth twice daily X 10 DAYS BACTRIM DS 800-160 MG ORAL TABLET 534563 TRIMETHOPRIM-SULFAMETHOXAZOLE Inactive TRIMETHOPRIM 100 MG ORAL TABLET 1/2 qd 7 TRIMETHOPRIM 100 MG ORAL TABLET 983504 TRIMETHOPRIM Inactive CETIRIZINE HCL 5 MG ORAL TABLET Take 1 tablet by mouth daily CETIRIZINE HCL 5 MG ORAL TABLET 0751015 CETIRIZINE HCL Inactive PRAMIPEXOLE DIHYDROCHLORIDE 0.125 MG ORAL TABLET take 1 tablet po qhs for restless leg syndrome. PRAMIPEXOLE DIHYD ROCHLORIDE 0.125 MG ORAL TABLET 966004 PRAMIPEXOLE DIHYDROCHLORIDE Inactive MIRTAZAPINE 15 MG ORAL TABLET 1/2 tab by mouth at bedtime. 03/13 MIRTAZAPINE 15 MG ORAL TABLET 006537 MIRTAZAPINE In active DIFLUCAN 100 MG ORAL TABLET 1 tablet by mouth daily X 3 DAYS 201 04/09/01 DIFLUCAN 100 MG ORAL TABLET 668283 FLUCONAZOLE Inac tive DIFLUCAN 100 MG ORAL TABLET 1 tablet by mouth every other da y for 2 doses DIFLUCAN 100 MG ORAL TABLET 576111 FLUCONAZOLE Inactive CEFTIN 250 MG ORAL TABLET 1 tablet twice daily x 7 days CEFTIN 250 MG ORAL TABLET CEFUROXIME AXETIL Inactive CYMBALTA 30 MG ORAL CAPSULE DELAYED RELEASE PARTICLES 1 cap by mouth daily with 60mg CYMBALTA 30 MG ORAL CAPSULE DELAYED RELEASE PARTICLES 933755 DULOXETINE HCL Inactive CYMBALTA 60 MG ORAL CAPSULE DELAYED RELEASE PARTICLES Take 1 tablet by mouth daily CYMBALTA 60 MG ORAL CAPSULE DELAYED RELEA SE PARTICLES 805948 DULOXETINE HCL Inactive FOSAMAX 70 MG ORAL TABLET 1 po qweek. Take 30min prio r to first food/drink. Avoid lying down x 1 hour. FOSAMAX 70 MG ORAL TA BLET 984034 ALENDRONATE SODIUM Inactive DIFLUCAN 100 MG ORAL TABLET 1 tablet by mouth daily 19/08/26 DIFLUCAN 100 MG ORAL TABLET 828450 FLUCONAZOLE Inactive PREDNISONE 20 MG ORAL TABLET 1 tab twice daily for 3 d ay, then one daily for three days PREDNISONE 20 MG ORAL TABLET 301807 PREDNIS ONE Inactive PROAIR HFA 108 (90 BASE) MCG/ACT INHALATION AEROSOL SO LUTION 1 puff every 6 hours as needed PROAIR HFA 108 (90 B ASE) MCG/ACT INHALATION AEROSOL SOLUTION ALBUTEROL SULFATE Inactive MECLIZINE HCL 25 MG ORAL TABLET one tab po qday prn dizziness 20 17/09/06 MECLIZINE HCL 25 MG ORAL TABLET 796509 MECLIZINE HCL Inactive PREDNISONE 20 MG ORAL TABLET 1 tablet by mouth twice d aily for 3 days, then 1 tablet daily for 3 days PREDNISONE 20 MG ORAL TA BLET 542158 PREDNISONE Inactive DIFLUCAN 100 MG ORAL TABLET 1 tablet by mouth daily 20 20/06/06 DIFLUCAN 100 MG ORAL TABLET 536889 FLUCONAZOLE Inactive REPHRESH PRO-B ORAL CAPSULE 1 tablet daily REPHRESH PRO-B ORAL CAPSULE LACTOBACILLUS Inactive RED YEAST RICE 600 MG ORAL CAPSULE 1 pill by mouth daily RED YEAST RICE 600 MG ORAL CAPSULE 928407 RED YEAST RICE EXTRACT In active SUDAFED [...] 20 19/02/09 DIFLUCAN 100 MG ORAL TABLET 034703 FLUCONAZOLE Inactive DIFLUCAN 100 MG ORAL TABLET 1 tablet by mouth daily 20 19/02/09 DIFLUCAN 100 MG ORAL TABLET 440901 FLUCONAZOLE Inactive VENLAFAXINE HCL 75 MG ORAL TABLET 1 am 1/2 at noon 201 07/07/09 VENLAFAXINE HCL 75 MG ORAL TABLET 240946 VENLAFAXINE HCL Inacti ve BACTRIM DS 800-160 MG ORAL TABLET 1 tab by mouth twice daily 201 03/03/23 BACTRIM DS 800-160 MG ORAL TABLET 673420 TRIMETHOPRIM-SULFAMETHOXAZOLE Inactive ZITHROMAX 250 MG ORAL TABLET 2 po today, then 1 po q days 2-5 20 15/02/10 ZITHROMAX 250 MG ORAL TABLET 294092 AZITHROMYCIN Mayela ctive BACTRIM DS 800-160 MG [...] 05/06/28 BACTRIM DS 800-160 MG ORAL TABLET 764230 TRIMETHOPRIM-SULFAMETHOXAZOLE Inactive DIFLUCAN 100 MG ORAL TABLET 1 tablet by mouth daily 20 19/03/05 DIFLUCAN 100 MG ORAL TABLET 356053 FLUCONAZOLE Inactive BACTRIM DS 800-160 MG ORAL TABLET 1 tab by mouth twice daily 201 05/10/28 BACTRIM DS 800-160 MG ORAL TABLET 070680 TRIMETHOPRIM-SULFAMETHOXAZOLE Inactive AMOXICILLIN 500 MG ORAL CAPSULE 1 cap by mouth three times a day AMOXICILLIN 500 MG ORAL CAPSULE 049693 AMOXICILLIN Inactive ZITHROMAX 250 MG ORAL TABLET 2 po today, then 1 po q days 2-5 20 20/04/28 ZITHROMAX 250 MG ORAL TABLET 558148 AZITHROMYCIN [place] ctive DIFLUCAN 100 MG ORAL TABLET 1 tablet by mouth daily 20 20/05/01 DIFLUCAN 100 MG ORAL TABLET 623333 FLUCONAZOLE Inactive BACTRIM DS 800-160 MG ORAL TABLET 1 tab by mouth twice daily 201 06/09/02 BACTRIM DS 800-160 MG ORAL TABLET 648524 TRIMETHOPRIM-SULFAMETHOXAZOLE Inactive Advance Directives Directive Description Start Date PERMISSION TO SHARE DISCUSSED WITH PATIENT -- NO DECISION MADE DURABLE POWER OF ROAD [employer]PER[employer] FOR HEALTHCARE DISCUSED WITH PATIENT -- [...] dipstick Trace-lysed Negative sodium, serum 139 mmol/L 527-473 2937/11/07 carbon dioxide, venous blood 28.4 mmol/L 21.0-32 [...] 5.0-8.5 Encounters Code Encounter Date Provider Facility CPT-49076 Level 3 Est. Patient 17:27:08 CDT León hernandez [facility] CPT-95267 [id number] Vst-Est Level IV 14:00:[address] Tesfaye Sherman MD [facility]-87513 [id number] Vst-Est Level IV 19:27:[address] Tesfaye Sherman MD [facility]-59458 [id number] Vst-Est Level IV 10:41:41 C BRIDGET Sherman MD [facility]-42187 [id number] Vst-Est Level III 09:40:56 CDT Tesfaye Sherman MD [facility] CPT-68048 Level 4 Est. Patient 22:18:12 CDT Tesfaye pearson MD [facility] CPT-98500 Level 4 Est. Patient 14:44:33 CALL CENTER AGENT Tesfaye pearson MD [facility] CPT-37852 Level 4 Est. Patient 13:55:29 CALL CENTER AGENT Tesfaye pearson MD [facility] CPT-69483 Level 4 Est. Patient 17:07:34 CALL CENTER AGENT Tesfaye pearson MD [facility] CPT-51090 Level 4 Est. Patient 13:56:54 CDT Tesfaye pearson MD [facility] CPT-37325 Level 4 Est. Patient 13:24:25 CDT Chelsea sanz [facility] CPT-18061 Level 4 Est. Patient 09:14:56 CDT Tesfaye pearson MD [facility]-47265 Level 4 Est. Patient 18:40:25 CALL CENTER AGENT Tesfaye pearson MD [facility]-87334 Level 4 Est. Patient 18:13:07 CALL CENTER AGENT Tesfaye pearson MD [facility]-40374 Level 3 Est. Patient 10:46:32 CDT Rj cotto DO [facility] CPT-04680 Level 4 Est. Patient 20:19:25 CDT Tesfaye pearson MD [facility]-99295 Level 3 Est. Patient 09:07:31 CDT Tesfaye pearson MD [facility]-73833 Level 4 Est. Patient 13:12:56 CDT Tesfaye pearson MD [facility]-89699 Level 4 Est. Patient 21:24:55 CALL CENTER AGENT Tesfaye pearson MD [facility]-58098 Level 3 Est. Patient 13:45:04 CALL CENTER AGENT Tesfaye pearson MD [facility] CPT-78465 Level 4 Est. Patient 13:50:45 CDT Tesfaye pearson MD [facility] CPT-16138 Level 3 Est. Patient 10:16:10 CDT Tesfaye pearson MD [facility] CPT-35942 Level 3 Est. Patient 16:36:07 CALL CENTER AGENT Kayla jameson MD [facility]-64968 Level 4 Est. Patient 16:00:14 CALL CENTER AGENT Tesfaye pearson MD [facility]-15564 Level 4 Est. Patient 11:02:24 CALL CENTER AGENT Tesfaye pearson MD [facility]-49019 Level 3 Est. Patient 20:21:43 CALL CENTER AGENT Kayla jameson MD [facility]-31561 Level 3 Est. Patient 13:27:28 CALL CENTER AGENT Kayla jameson MD [facility] CPT-15918 Level 4 Est. Patient 15:57:17 CALL CENTER AGENT Tesfaye pearson MD [facility] CPT-78756 Level 3 New Patient 13:25:47 CDT Tesfaye kidd MD [facility] CPT-85902 Level 3 New Patient 17:22:21 CDT Kayla angel [facility] Procedures Code Procedure Name Date Entry Date Standard Desc ription CPT-G0439 Subsequent Annual Wellness Exam 22:18:11 CDT CPT-60219 Bone Density - XRAY USE ONLY 11:43:58 CDT 2 CPT-84174 Bone Density - XRAY USE ONLY 10:05:16 CDT 2 CPT-65235 Prv Med New Pt 40-64 yrs 18:19:25 CDT 2016 CPT-95593 Foot, right, comp min 3V - XRAY USE ONLY 10:38:34 CDT CPT-G0439 Subsequent Annual Wellness Exam 13:55:04 CDT CPT-G0438 Initial Annual Wellness Exam 11:23:17 CD T CPT-J2930 Solu Medrol 125 mg (Methyl Prednisolone Sodium Succinate) 17:29:12 CALL CENTER AGENT CPT-23530 Abx/Therapy Injection 17:29:11 CALL CENTER AGENT CPT-J2930 Solu Medrol 125 mg (Methyl Prednisolone Sodium Succinate) 12:34:38 CALL CENTER AGENT CPT-J3420 Vitamin B12 1000mcg (Cyanocobalamin) 09:12:55 CDT CPT-J3420 Vitamin B12 1000mcg (Cyanocobalamin) 16:28:06 CALL CENTER AGENT CPT-92530 Venipuncture Draw Fee 08:39:53 CDT CPT-J3420 Vitamin B12 1000mcg (Cyanocobalamin) 08:46:22 CDT CPT-73787 Abx/Therapy Injection 08:46:22 CDT CPT-J3420 Vitamin B12 1000mcg (Cyanocobalamin) 08:41:26 CDT CPT-16302 Abx/Therapy Injection 08:41:26 CDT CPT-J3420 Vitamin B12 1000mcg (Cyanocobalamin) 08:57:15 CDT CPT-31984 Abx/Therapy Injection 08:57:15 CDT CPT-J3420 Vitamin B12 1000mcg (Cyanocobalamin) 10:59:03 CDT CPT-16118 Abx/Therapy Injection 10:59:03 CDT CPT-J3420 Vitamin B12 1000mcg (Cyanocobalamin) 15:05:39 CDT CPT-76436 Abx/Therapy Injection 15:05:39 CDT CPT-J3420 Vitamin B12 1000mcg (Cyanocobalamin) 13:50:45 CDT CPT-J3420 Vitamin B12 1000mcg (Cyanocobalamin) 08:48:55 CDT CPT-81373 Abx/Therapy Injection 08:48:55 CDT CPT-J3420 Vitamin B12 1000mcg (Cyanocobalamin) 09:14:54 CDT CPT-51989 Abx/Therapy Injection 09:14:54 CDT CPT-J3420 Vitamin B12 1000mcg (Cyanocobalamin) 09:06:06 CDT CPT-04379 Abx/Therapy Injection 09:06:06 CDT CPT-J3420 Vitamin B12 1000mcg (Cyanocobalamin) 09:49:14 CDT CPT-31299 Abx/Therapy Injection 09:49:14 CDT CPT-J3420 Vitamin B12 1000mcg (Cyanocobalamin) 09:10:30 CALL CENTER AGENT CPT-24837 Abx/Therapy Injection 09:10:30 CALL CENTER AGENT CPT-J3420 Vitamin B12 1000mcg (Cyanocobalamin) 09:11:07 CALL CENTER AGENT CPT-73542 Abx/Therapy Injection 09:11:07 CALL CENTER AGENT CPT-J3420 Vitamin B12 1000mcg (Cyanocobalamin) 09:57:03 CALL CENTER AGENT CPT-93028 Abx/Therapy Injection 09:57:03 CALL CENTER AGENT CPT-J3420 Vitamin B12 1000mcg (Cyanocobalamin) 09:23:21 CALL CENTER AGENT CPT-86259 Abx/Therapy Injection 09:23:21 CALL CENTER AGENT CPT-88608 Urine Dip (Floor Use Only) 20:21:44 CALL CENTER AGENT 201 02/12/11 CPT-73745 UA Dip Auto (Floor Use Only) 10:04:39 CALL CENTER AGENT 2 CPT-30695 Urine Dip (Floor Use Only) 13:27:28 CALL CENTER AGENT 201 02/12/01 CPT-39206 Bladder Scan 13:27:28 CALL CENTER AGENT CPT-41966 Abd single AP View 14:30:51 CALL CENTER AGENT CPT-OV Office Visit 10:15:43 CDT CPT-12481 Urine Dip (Floor Use Only) 17:22:21 CDT 201 02/09/02 CPT-65829 Bladder Scan 17:22:21 CDT
--- OUTSIDE RECORDS SUMMARY | 2020-05-05 11:38 | XMS REPORT | Clinical Summary ---
Author Author Talon, Jeri Wood Organization [employer] Address Unknown Phone Unavailable Allergies, Adverse Reactions, Alerts Allergy Name Reaction Description Start Date Severity Status Pr ovider FOSAMAX Critical Active Tesfaye armenta MD PRAMIPEXOLE Critical Active Tesfaye villar MD CEFTIN Critical Active Tesfaye armenta MD CIPRO Critical Active Tesfaye armenta MD MIRTAZAPINE Bloating, edema, fatigue, muscle pain Moderate Active Tesfaye Shreman MD MIRAPEX caused dizziness and weakness Moderate [...] of psychiatric condition Diabetes V18.0 Resolved Tesfaye Shreman MD Family history of diabetes mellitus U [...] general medical examination at a health care acility Body Mass Index 21.0-21.9 Adult Refinement [...] MD 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 Tesfaye Sherman MD Long-term (current) drug use Yeast infection 112.9 Inactive Tesfaye Sherman MD Candidiasis of unspecified site Upper respiratory infection 465.9 Inactive Tesfaye Sherman MD Acute upper respiratory infections of un specified site FH Depression ICD-V17.0 Inactive Tesfaye Sherman MD [...] Mass Index 20.0-20.9 Adult Inactiv jim Shah A Dysuria ICD-788.1 Inactive Tesfaye Sherman MD 201 07/05/07 Yeast infection ICD-112.9 Inactive Tesfaye lamb MD Upper respiratory infection ICD-465.9 Inactive Tesfaye Sherman MD Medication List Medication Instructions Start Date Stop Date Generic Name NDC Status Provider Patient Instruction DIFLUCAN 100 MG ORAL TABLET 1 tablet by mouth daily FLUCONAZOLE [id number] Active Tesfaye Sherman MD Active OXYCODONE-ACETAMINOPHEN 5-325 MG ORAL TABLET Take one tablet by mouth every 6 hours 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 Use sparingly OXYCODONE-ACETAMINOPHEN 65904781308 Active Tesfaye villar MD Active CLONAZEPAM 0.5 MG ORAL TABLET Take 1/2 qam, and 1/2 qpm CLONAZEPAM 90012962743 Active Tesfaye Sherman MD Active PRELIEF 340 (65-50) MG (CA-P) ORAL TABLET CALCIUM GLYCEROPHOSPHATE 54752487937 No Longer Active Tesfaye Sherman MD Active SUDAFED 24 HOUR 240 MG ORAL TABLET EXTENDED RELEASE 24 HOUR 1 tab po daily PSEUDOEPHEDRINE HCL 66722086453 No Longer Active Rauleh Sherman MD Active RED YEAST RICE 600 MG ORAL CAPSULE 1 pill by mouth daily RED YEAST RICE EXTRACT 08711830492 No Longer Active Tesfaye Sherman MD Active REPHRESH PRO-B ORAL CAPSULE 1 tablet daily LACT OBACILLUS 46174384626 No Longer Active Tesfaye Sherman MD Active GABAPENTIN 300 MG ORAL CAPSULE 1-2 po daily GABAP ENTIN 05969273556 Active Tesfaye Sherman MD Active SUDAFED 12 HOUR 120 MG ORAL TABLET EXTENDED RELEASE 12 HOUR 1 pill twice daily if needed for congestion PSEUDOEPHEDRINE HCL 98140340367 A ctive Tesfaye Sherman MD Active ABILIFY 2 MG ORAL TABLET 1 by mouth daily. MARIA ELENA PIPRAZOLE 11284186601 Active Tesfaye Sherman MD Active CYMBALTA 60 MG ORAL CAPSULE DELAYED RELEASE PARTICLES 1 cap by mouth daily for pain DULOXETINE HCL 81604397281 Active Tesfaye Owusu Active DIFLUCAN 100 MG ORAL TABLET 1 tablet by mouth daily 20 20/06/06 FLUCONAZOLE 25403760397 No Longer Active Tesfaye Sherman MD Acti ve PREDNISONE 20 MG ORAL TABLET 1 tablet by mouth twice d aily for 3 days, then 1 tablet daily for 3 days PREDNISONE 07979954262 No L onger Active Tesfaye Sherman MD Active DIFLUCAN 100 MG ORAL TABLET 1 tablet by mouth daily FLUCONAZOLE 94849758009 Active Tesfaye Sherman MD Active BACTRIM DS 800-160 MG ORAL TABLET 1 tab by mouth twice daily 201 06/09/02 TRIMETHOPRIM-SULFAMETHOXAZOLE 15118304894 No Longer Active Fer Dominguez Active DIFLUCAN 100 MG ORAL TABLET 1 tablet by mouth daily 20 20/05/01 FLUCONAZOLE 34702511509 No Longer Active Tesfaye Sherman MD Acti ve ZITHROMAX 250 MG ORAL TABLET 2 po today, then 1 po q days 2-5 20 20/04/28 AZITHROMYCIN 23959028595 No Longer Active Tesfaye Sherman MD Active MECLIZINE HCL 25 MG ORAL TABLET one tab po qday prn dizziness 20 17/09/06 MECLIZINE HCL 58986031548 No Longer Active Tesfaye Sherman MD Active PROAIR HFA 108 (90 BASE) MCG/ACT INHALATION AEROSOL SO LUTION 1 puff every 6 hours as needed ALBUTEROL SULFATE 64910826612 No Long er Active Tesfaye Sherman MD Active PREDNISONE 20 MG ORAL TABLET 1 tab twice daily for 3 d ay, then one daily for three days PREDNISONE 50664632851 No Longer Active Tesfaye Sherman MD Active MECLIZINE HCL 25 MG ORAL TABLET one 4 times a day as needed for dizziness MECLIZINE HCL 95835585896 Active Tesfaye Sherman MD Active AMOXICILLIN 500 MG ORAL CAPSULE 1 cap by mouth three times a day AMOXICILLIN 78280885463 No Longer Active Laurence Dominguez Acti ve VENLAFAXINE HCL 75 MG ORAL TABLET 1 am 1/2 at noon VENLAFAXINE HCL 48882428730 Active Tesfaye Sherman MD Active DIFLUCAN 100 MG ORAL TABLET 1 tablet by mouth daily 20 19/08/26 FLUCONAZOLE 68894673510 No Longer Active Tesfaye Sherman MD Acti ve BACTRIM DS 800-160 MG ORAL TABLET 1 tab by mouth twice daily 201 05/10/28 TRIMETHOPRIM-SULFAMETHOXAZOLE 63220274856 No Longer Active Fer Dominguez Active FOSAMAX 70 MG ORAL TABLET 1 po qweek. Take 30min prio r to first food/drink. Avoid lying down x 1 hour. ALENDRONATE SODIUM 86563992 144 No Longer Active Laurence Dominguez Active CYMBALTA 60 MG ORAL CAPSULE DELAYED RELEASE PARTICLES Take 1 tablet by mouth daily DULOXETINE HCL 74479263202 No Longer Active Edith Burch MD Active CYMBALTA 30 MG ORAL CAPSULE DELAYED RELEASE PARTICLES 1 cap by mouth daily with 60mg DULOXETINE HCL 41517712627 No Longer Active Jordan Burch MD Active FISH OIL 1000 MG ORAL CAPSULE DELAYED RELEASE 1 pill b y mouth daily for cholesterol OMEGA-3 FATTY ACIDS 70973998572 Active Cee Jaffe LPN Active DIFLUCAN 100 MG ORAL TABLET 1 tablet by mouth daily 20 19/03/05 FLUCONAZOLE 22331787734 No Longer Active Tesfaye Sherman MD Acti ve BACTRIM DS 800-160 MG ORAL TABLET 1 tab by mouth twice daily 201 05/06/28 TRIMETHOPRIM-SULFAMETHOXAZOLE 66883961893 No Longer Active Umer Sherman MD Active BACTRIM DS 800-160 MG ORAL TABLET 1 tab by mouth twice daily 201 05/04/15 TRIMETHOPRIM-SULFAMETHOXAZOLE 01007286841 No Longer Active Umer Sherman MD Active DIFLUCAN 150 MG ORAL TABLET 1 tablet by mouth daily 20 18/09/20 FLUCONAZOLE 03647996096 No Longer Active Tesfaye Sherman MD Acti ve BACTRIM DS 800-160 MG ORAL TABLET 1 tab by mouth twice daily 201 04/13/17 TRIMETHOPRIM-SULFAMETHOXAZOLE 52459839169 No Longer Active Umer Sherman MD Active ROPINIROLE HCL 0.25 MG ORAL TABLET 1 TAB PO Q HS ROPINIROLE HCL 13988982363 Active Tesfaye Sherman MD Active CEFTIN 250 MG ORAL TABLET 1 tablet twice daily x 7 days CEFUROXIME AXETIL 50386731297 No Longer Active Tesfaye Sherman MD Active DIFLUCAN 100 MG ORAL TABLET 1 tablet by mouth every other da y for 2 doses FLUCONAZOLE 06773366476 No Longer Active Tesfaye barron MD Active DIFLUCAN 100 MG ORAL TABLET 1 tablet by mouth daily X 3 DAYS 201 04/09/01 FLUCONAZOLE 17315329304 No Longer Active Rj Moss DO Ac tive MIRTAZAPINE 15 MG ORAL TABLET 1/2 tab by mouth at bedtime. 03/13 MIRTAZAPINE 34315968248 No Longer Active Tesfaye Sherman MD Active BACTRIM DS 800-160 MG ORAL TABLET 1 tab by mouth twice daily 201 04/09/01 TRIMETHOPRIM-SULFAMETHOXAZOLE 00573199801 No Longer Active Umer Sherman MD Active PRAMIPEXOLE DIHYDROCHLORIDE 0.125 MG ORAL TABLET take 1 tablet po qhs for restless leg syndrome. PRAMIPEXOLE DIHYDROCHLORI DE 95529006649 No Longer Active Tesfaye Sherman MD Active MAGNESIUM 400 MG ORAL TABLET 1 tab po daily MAGNE SIUM 60626903956 Active Chelsea Cardenas APRN Active CETIRIZINE HCL 5 MG ORAL TABLET Take 1 tablet by mouth daily CETIRIZINE HCL 91397516787 No Longer Active Chelsea Cardenas APRN Activ e TRIMETHOPRIM 100 MG ORAL TABLET 1/2 qd TRIM ETHOPRIM 15038279551 No Longer Active Chelsea Cardenas APRN Active BACTRIM DS 800-160 MG ORAL TABLET 1 tab by mouth twice daily 201 04/04/11 TRIMETHOPRIM-SULFAMETHOXAZOLE 23090258946 No Longer Active Umer Sherman MD Active BACTRIM DS 800-160 MG ORAL TABLET 1 tab by mouth twice daily X 10 DAYS TRIMETHOPRIM-SULFAMETHOXAZOLE 01798802177 No Longer Active Tesfaye Sherman MD Active AMOXICILLIN 500 MG ORAL CAPSULE 1 cap by mouth three times a day AMOXICILLIN 74003355398 No Longer Active MARCUS Maravilla ctive B-12 1000 MCG ORAL LOZENGE 1 tab po daily CYANO COBALAMIN 82797413880 Active Tesfaye Sherman MD Active VITAMIN D3 2000 UNIT ORAL TABLET 1 daily, for vitamin D deficien cy CHOLECALCIFEROL 96625959508 No Longer Active Tesfaye Sherman MD Active TIZANIDINE HCL 2 MG ORAL TABLET take 1-2 tablet by mo uth every day at bedtime at 9pm PRN TIZANIDINE HCL 98302285688 Active Tesfaye hewitt MD Active ZITHROMAX 250 MG ORAL TABLET 2 po today, then 1 po q days 2-5 20 15/02/10 AZITHROMYCIN 44142553985 No Longer Active Tesfaye Sherman MD Active BACTRIM DS 800-160 MG ORAL TABLET 1 tab by mouth twice daily 201 03/03/23 TRIMETHOPRIM-SULFAMETHOXAZOLE 70400138707 No Longer Active Umer Sherman MD Active [facility] NIACIN FLUSH FREE 400-100 MG ORAL CAPSULE 1 daily NIACIN-INOSITOL 02535320763 Active Kayla Cooper MD Activ e DIFLUCAN 150 MG ORAL TABLET 1 qd FLUCONAZOL E 56230560074 No Longer Active Kayla Cooper MD Active FLUTICASONE PROPIONATE 50 MCG/ACT NASAL SUSPENSION 1 spray each nostril twice daily FLUTICASONE PROPIONATE 84921798159 Active D patricia Sherman MD Active LOVASTATIN 20 MG ORAL TABLET Take 1 tablet by mouth daily LOVASTATIN 55399316078 No Longer Active Tesfaye Sherman MD Acti ve MELOXICAM 7.5 MG ORAL TABLET 1 tablet by mouth daily 2 MELOXICAM 42149003857 No Longer Active Tesfaye Sherman MD Acti ve GABAPENTIN 300 MG ORAL CAPSULE Take two tablets by mouth every e vening GABAPENTIN 11762537653 No Longer Active Edith Burch MD A ctive BACLOFEN 10 MG ORAL TABLET Take one tablet by mouth three times a d ay BACLOFEN 68823956178 Active Kayla Cooper MD Active GABAPENTIN 300 MG ORAL CAPSULE Take two tablets by mouth every e vening GABAPENTIN 300 MG ORAL CAPSULE 585758 GABAPENTIN I nactive MELOXICAM 7.5 MG ORAL TABLET 1 tablet by mouth daily 2 MELOXICAM 7.5 MG ORAL TABLET 553551 MELOXICAM Inactive LOVASTATIN 20 MG ORAL TABLET Take 1 tablet by mouth daily LOVASTATIN 20 MG ORAL TABLET 500074 LOVASTATIN Inactive DIFLUCAN 150 MG ORAL TABLET 1 qd DIFLUCAN 150 MG ORAL TABLET 656553 FLUCONAZOLE Inactive VITAMIN D3 2000 UNIT ORAL TABLET 1 daily, for vitamin D deficien cy VITAMIN D3 2000 UNIT ORAL TABLET CHOLECALCIFEROL Inactive AMOXICILLIN 500 MG ORAL CAPSULE 1 cap by mouth three times a day AMOXICILLIN 500 MG ORAL CAPSULE 234817 AMOXICILLIN Inactive BACTRIM DS 800-160 MG ORAL TABLET 1 tab by mouth twice daily X 10 DAYS BACTRIM DS 800-160 MG ORAL TABLET 841353 TRIMETHOPRIM-SULFAMETHOXAZOLE Inactive TRIMETHOPRIM 100 MG ORAL TABLET 1/2 qd 7 TRIMETHOPRIM 100 MG ORAL TABLET 289722 TRIMETHOPRIM Inactive CETIRIZINE HCL 5 MG ORAL TABLET Take 1 tablet by mouth daily CETIRIZINE HCL 5 MG ORAL TABLET 1967175 CETIRIZINE HCL Inactive PRAMIPEXOLE DIHYDROCHLORIDE 0.125 MG ORAL TABLET take 1 tablet po qhs for restless leg syndrome. PRAMIPEXOLE DIHYD ROCHLORIDE 0.125 MG ORAL TABLET 801717 PRAMIPEXOLE DIHYDROCHLORIDE Inactive MIRTAZAPINE 15 MG ORAL TABLET 1/2 tab by mouth at bedtime. 03/13 MIRTAZAPINE 15 MG ORAL TABLET 870433 MIRTAZAPINE In active DIFLUCAN 100 MG ORAL TABLET 1 tablet by mouth daily X 3 DAYS 201 04/09/01 DIFLUCAN 100 MG ORAL TABLET 207760 FLUCONAZOLE Inac tive DIFLUCAN 100 MG ORAL TABLET 1 tablet by mouth every other da y for 2 doses DIFLUCAN 100 MG ORAL TABLET 614396 FLUCONAZOLE Inactive CEFTIN 250 MG ORAL TABLET 1 tablet twice daily x 7 days CEFTIN 250 MG ORAL TABLET CEFUROXIME AXETIL Inactive CYMBALTA 30 MG ORAL CAPSULE DELAYED RELEASE PARTICLES 1 cap by mouth daily with 60mg CYMBALTA 30 MG ORAL CAPSULE DELAYED RELEASE PARTICLES 592868 DULOXETINE HCL Inactive CYMBALTA 60 MG ORAL CAPSULE DELAYED RELEASE PARTICLES Take 1 tablet by mouth daily CYMBALTA 60 MG ORAL CAPSULE DELAYED RELEA SE PARTICLES 505156 DULOXETINE HCL Inactive FOSAMAX 70 MG ORAL TABLET 1 po qweek. Take 30min prio r to first food/drink. Avoid lying down x 1 hour. FOSAMAX 70 MG ORAL TA BLET 148368 ALENDRONATE SODIUM Inactive DIFLUCAN 100 MG ORAL TABLET 1 tablet by mouth daily 19/08/26 DIFLUCAN 100 MG ORAL TABLET 649398 FLUCONAZOLE Inactive PREDNISONE 20 MG ORAL TABLET 1 tab twice daily for 3 d ay, then one daily for three days PREDNISONE 20 MG ORAL TABLET 357936 PREDNIS ONE Inactive PROAIR HFA 108 (90 BASE) MCG/ACT INHALATION AEROSOL SO LUTION 1 puff every 6 hours as needed PROAIR HFA 108 (90 B ASE) MCG/ACT INHALATION AEROSOL SOLUTION ALBUTEROL SULFATE Inactive MECLIZINE HCL 25 MG ORAL TABLET one tab po qday prn dizziness 20 17/09/06 MECLIZINE HCL 25 MG ORAL TABLET 786293 MECLIZINE HCL Inactive PREDNISONE 20 MG ORAL TABLET 1 tablet by mouth twice d aily for 3 days, then 1 tablet daily for 3 days PREDNISONE 20 MG ORAL TA BLET 477121 PREDNISONE Inactive DIFLUCAN 100 MG ORAL TABLET 1 tablet by mouth daily 20/06/06 DIFLUCAN 100 MG ORAL TABLET 095460 FLUCONAZOLE Inactive REPHRESH PRO-B ORAL CAPSULE 1 tablet daily REPHRESH PRO-B ORAL CAPSULE LACTOBACILLUS Inactive RED YEAST RICE 600 MG ORAL CAPSULE 1 pill by mouth daily RED YEAST RICE 600 MG ORAL CAPSULE 865130 RED YEAST RICE EXTRACT In active SUDAFED 24 HOUR 240 MG ORAL TABLET EXTENDED RELEASE 24 HOUR 1 tab po daily SUDAFED 24 HOUR 240 MG ORAL TABLET EXTENDED RELEASE 24 HOUR PSEUDOEPHEDRINE HCL Inactive PRELIEF 340 (65-50) MG (CA-P) ORAL TABLET PRELIEF 340 (65-50) MG (CA-P) ORAL TABLET CALCIUM GLYCEROPHOSPHATE Inact trent BACTRIM DS 800-160 MG ORAL TABLET 1 tab by mouth twice daily 201 03/03/23 BACTRIM DS 800-160 MG ORAL TABLET 19830105 TRIMETHOPRIM-SULFAMETHOXAZOLE Inactive ZITHROMAX 250 MG ORAL TABLET 2 po today, then 1 po q days 2-5 20 15/02/10 ZITHROMAX 250 MG ORAL TABLET 666297 AZITHROMYCIN [place] ctive BACTRIM DS 800-160 MG ORAL TABLET [...] a day AMOXICILLIN 500 MG ORAL CAPSULE 404867 AMOXICILLIN Inactive ZITHROMAX 250 MG ORAL TABLET 2 po today, then 1 po q days 2-5 20 20/04/28 ZITHROMAX 250 MG ORAL TABLET 708527 AZITHROMYCIN [place] ctive DIFLUCAN 100 MG ORAL TABLET 1 tablet by mouth daily 20 20/05/01 DIFLUCAN 100 MG ORAL TABLET 899254 FLUCONAZOLE Inactive BACTRIM DS 800-160 MG ORAL TABLET 1 tab by mouth twice daily 201 06/09/02 BACTRIM DS 800-160 MG ORAL TABLET 758114 TRIMETHOPRIM-SULFAMETHOXAZOLE Inactive Advance Directives Directive Description Start Date PERMISSION TO SHARE DISCUSSED WITH PATIENT -- 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 M etabolic Panel, CBC - Chemistry RBC, urine, dipstick Trace-lysed Negative protein, total urine random Negative mg/dL Negative sodium, serum 139 mmol/L 801-001 9497/11/07 carbon dioxide, venous blood 28.4 mmol/L 21.0-32 [...] Neg ative urine color Yellow Colorless;Lightyellow;St raw;Yellow appearance, urine Clear Clear specific gravity, urine 1.015 1.000-1.030 pH, urine, semiquantitative 5.5 5.0-8.5 Encounters Code Encounter Date Provider Facility CPT-19357 [id number] Vst-Est Level IV 14:00:[address] [facility] CPT-48140 [id number] Vst-Est Level IV 19:27:[address] Tesfaye [facility] CPT-06313 [id number] Vst-Est Level IV 10:41:41 C BRIDGET Sherman MD [facility] CPT-10285 [id number] Vst-Est Level III 09:40:56 CDT Tesfaye [facility] MD [facility] CPT-40993 Level 4 Est. Patient 22:18:12 CDT Tesfaye pearson MD [facility] CPT-71696 Level 4 Est. Patient 14:44:33 [facility] Tesfaye pearson MD [facility] CPT-92957 Level 4 Est. Patient 13:55:29 [facility] Tesfaye pearson MD [facility] CPT-68722 Level 4 Est. Patient 17:07:34 [facility] Tesfaye pearson MD [facility] CPT-95604 Level 4 Est. Patient 13:56:54 CDT Tesfaye pearson MD [facility] CPT-76106 Level 4 Est. Patient 13:24:25 CDT Chelsea sanz APRN [facility] CPT-65478 Level 4 Est. Patient 09:14:56 CDT Tesfaye pearson MD [facility]-27590 Level 4 Est. Patient 18:40:25 [facility] Tesfaye pearson MD [facility]-86132 Level 4 Est. Patient 18:13:07 [facility] Tesfaye pearson MD [facility]-66737 Level 3 Est. Patient 10:46:32 CDT Rj cotto DO [facility] CPT-81248 Level 4 Est. Patient 20:19:25 CDT Tesfaye pearson MD [facility] CPT-31790 Level 3 Est. Patient 09:07:31 CDT Tesfaye pearson MD [facility]-72465 Level 4 Est. Patient 13:12:56 CDT Tesfaye pearson MD [facility]-55759 Level 4 Est. Patient 21:24:55 [facility] Tesfaye pearson MD [facility]-22336 Level 3 Est. Patient 13:45:04 LEAN SENSEI Tesfaye pearson MD [facility] CPT-26945 Level 4 Est. Patient 13:50:45 CDT Tesfaye pearson MD [facility] CPT-13353 Level 3 Est. Patient 10:16:10 CDT Tesfaye pearson MD [facility] CPT-57330 Level 3 Est. Patient 16:36:07 [facility] Kayla jmaeson MD [facility] CPT-74049 Level 4 Est. Patient 16:00:14 [employer] Tesfaye pearson MD [facility] CPT-58061 Level 4 Est. Patient 11:02:24 [employer] Tesfaye pearson MD [facility] CPT-46973 Level 3 Est. Patient 20:21:43 [facility] Kayla jameson MD [facility] CPT-91337 Level 3 Est. Patient 13:27:28 [facility] Kayla jameson MD [facility] CPT-15270 Level 4 Est. Patient 15:57:17 [employer] Tesfaye pearson MD [facility] CPT-29428 Level 3 New Patient 13:25:47 CDT Tesfaye kidd MD [facility] CPT-19783 Level 3 New Patient 17:22:21 CDT Kayla angel MD [facility] Procedures Code Procedure Name Date Entry Date Standard Desc ription CPT-G0439 Subsequent Annual Wellness Exam 22:18:11 CDT CPT-51802 Bone Density - XRAY USE ONLY 11:43:58 CDT 2 CPT-48464 Bone Density - XRAY USE ONLY 10:05:16 CDT 2 CPT-37170 Prv Med New Pt 40-64 yrs 18:19:25 CDT 2016 CPT-69749 Foot, right, comp min 3V - XRAY USE ONLY 10:38:34 CDT CPT-G0439 Subsequent Annual Wellness Exam 13:55:04 CDT CPT-G0438 Initial Annual Wellness Exam 11:23:17 CD T CPT-J2930 Solu Medrol 125 mg (Methyl Prednisolone Sodium Succinate) 17:29:12 LEAN SENSEI CPT-56644 Abx/Therapy Injection 17:29:11 LEAN SENSEI CPT-J2930 Solu Medrol 125 mg (Methyl Prednisolone Sodium Succinate) 12:34:38 LEAN SENSEI CPT-J3420 Vitamin B12 1000mcg (Cyanocobalamin) 09:12:55 CDT CPT-J3420 Vitamin B12 1000mcg (Cyanocobalamin) 16:28:06 LEAN SENSEI CPT-85723 Venipuncture Draw Fee 08:39:53 CDT CPT-J3420 Vitamin B12 1000mcg (Cyanocobalamin) 08:46:22 CDT CPT-01991 Abx/Therapy Injection 08:46:22 CDT CPT-J3420 Vitamin B12 1000mcg (Cyanocobalamin) 08:41:26 CDT CPT-11568 Abx/Therapy Injection 08:41:26 CDT CPT-J3420 Vitamin B12 1000mcg (Cyanocobalamin) 08:57:15 CDT CPT-41085 Abx/Therapy Injection 08:57:15 CDT CPT-J3420 Vitamin B12 1000mcg (Cyanocobalamin) 10:59:03 CDT CPT-80600 Abx/Therapy Injection 10:59:03 CDT CPT-J3420 Vitamin B12 1000mcg (Cyanocobalamin) 15:05:39 CDT CPT-00195 Abx/Therapy Injection 15:05:39 CDT CPT-J3420 Vitamin B12 1000mcg (Cyanocobalamin) 13:50:45 CDT CPT-J3420 Vitamin B12 1000mcg (Cyanocobalamin) 08:48:55 CDT CPT-23690 Abx/Therapy Injection 08:48:55 CDT CPT-J3420 Vitamin B12 1000mcg (Cyanocobalamin) 09:14:54 CDT CPT-30376 Abx/Therapy Injection 09:14:54 CDT CPT-J3420 Vitamin B12 1000mcg (Cyanocobalamin) 09:06:06 CDT CPT-23308 Abx/Therapy Injection 09:06:06 CDT CPT-J3420 Vitamin B12 1000mcg (Cyanocobalamin) 09:49:14 CDT CPT-82578 Abx/Therapy Injection 09:49:14 CDT CPT-J3420 Vitamin B12 1000mcg (Cyanocobalamin) 09:10:30 LEAN SENSEI CPT-54115 Abx/Therapy Injection 09:10:30 LEAN SENSEI CPT-J3420 Vitamin B12 1000mcg (Cyanocobalamin) 09:11:07 LEAN SENSEI CPT-61640 Abx/Therapy Injection 09:11:07 LEAN SENSEI CPT-J3420 Vitamin B12 1000mcg (Cyanocobalamin) 09:57:03 LEAN SENSEI CPT-46331 Abx/Therapy Injection 09:57:03 LEAN SENSEI CPT-J3420 Vitamin B12 1000mcg (Cyanocobalamin) 09:23:21 LEAN SENSEI CPT-45882 Abx/Therapy Injection 09:23:21 LEAN SENSEI CPT-49546 Urine Dip (Floor Use Only) 20:21:44 LEAN SENSEI 201 02/12/11 CPT-80072 UA Dip Auto (Floor Use Only) 10:04:39 LEAN SENSEI 2 CPT-53741 Urine Dip (Floor Use Only) 13:27:28 LEAN SENSEI 201 02/12/01 CPT-12087 Bladder Scan 13:27:28 LEAN SENSEI CPT-70110 Abd single AP View 14:30:51 LEAN SENSEI CPT-OV Office Visit 10:15:43 CDT CPT-70536 Urine Dip (Floor Use Only) 17:22:21 CDT 201 02/09/02 CPT-57690 Bladder Scan 17:22:21 CDT
--- OUTSIDE RECORDS SUMMARY | 2020-05-05 11:39 | XMS REPORT | Clinical Summary ---
Author Author Talon, Jeri Wood Organization [employer] Address Unknown Phone Unavailable Allergies, Adverse Reactions, [...] Body Mass Index 20.0-20.9 Adult Inactiv jim hSah A Dysuria ICD-788.1 Inactive Tesfaye Sherman MD 201 07/05/07 Yeast infection ICD-112.9 Inactive Tesfaye lamb MD Upper respiratory infection ICD-465.9 Inactive Tesfaye Sherman MD Medication List Medication Instructions Start Date Stop Date Generic Name NDC Status Provider Patient Instruction DIFLUCAN 100 MG ORAL TABLET 1 tablet by mouth daily FLUCONAZOLE 67178996284 Active Tesfaye Sherman MD Active OXYCODONE-ACETAMINOPHEN 5-325 MG ORAL TABLET Take one tablet by mouth every 6 hours 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 Use sparingly OXYCODONE-ACETAMINOPHEN 20745137738 Active Tesfaye villar MD Active CLONAZEPAM 0.5 MG ORAL TABLET Take 1/2 qam, and 1/2 qpm CLONAZEPAM 40864371809 Active Tesfaye Sherman MD Active PRELIEF 340 (65-50) MG (CA-P) ORAL TABLET CALCIUM GLYCEROPHOSPHATE 85410969394 No Longer Active Tesfaye Sherman MD Active SUDAFED 24 HOUR 240 MG ORAL TABLET EXTENDED RELEASE 24 HOUR 1 tab po daily PSEUDOEPHEDRINE HCL 04073757721 No Longer Active Rauleh Sherman MD Active RED YEAST RICE 600 MG ORAL CAPSULE 1 pill by mouth daily RED YEAST RICE EXTRACT 87768631124 No Longer Active Tesfaye Sherman MD Active REPHRESH PRO-B ORAL CAPSULE 1 tablet daily LACT OBACILLUS 88339433960 No Longer Active Tesfaye Sherman MD Active GABAPENTIN 300 MG ORAL CAPSULE 1-2 po daily GABAP ENTIN 67583244027 Active Tesfaye Sherman MD Active SUDAFED 12 HOUR 120 MG ORAL TABLET EXTENDED RELEASE 12 HOUR 1 pill twice daily if needed for congestion PSEUDOEPHEDRINE HCL 71060638658 A ctive Tesfaye Sherman MD Active ABILIFY 2 MG ORAL TABLET 1 by mouth daily. MARIA ELENA PIPRAZOLE 56567467256 Active Tesfaye Sherman MD Active CYMBALTA 60 MG ORAL CAPSULE DELAYED RELEASE PARTICLES 1 cap by mouth daily for pain DULOXETINE HCL 28319875208 Active Tesfaye Owusu Active DIFLUCAN 100 MG ORAL TABLET 1 tablet by mouth daily 20 20/06/06 FLUCONAZOLE 54816289621 No Longer Active Tesfaye Sherman MD Acti ve PREDNISONE 20 MG ORAL TABLET 1 tablet by mouth twice d aily for 3 days, then 1 tablet daily for 3 days PREDNISONE 62548275995 No L onger Active Tesfaye Sherman MD Active DIFLUCAN 100 MG ORAL TABLET 1 tablet by mouth daily FLUCONAZOLE 00010217349 Active Tesfaye Sherman MD Active BACTRIM DS 800-160 MG ORAL TABLET 1 tab by mouth twice daily 201 06/09/02 TRIMETHOPRIM-SULFAMETHOXAZOLE 92366560261 No Longer Active Fer Dominguze Active DIFLUCAN 100 MG ORAL TABLET 1 tablet by mouth daily 20 20/05/01 FLUCONAZOLE 21074920216 No Longer Active Tesfaye Sherman MD Acti ve ZITHROMAX 250 MG ORAL TABLET 2 po today, then 1 po q days 2-5 20 20/04/28 AZITHROMYCIN 93181907604 No Longer Active Tesfaye Sherman MD Active MECLIZINE HCL 25 MG ORAL TABLET one tab po qday prn dizziness 20 17/09/06 MECLIZINE HCL 29983045768 No Longer Active Tesfaye Sherman MD Active PROAIR HFA 108 (90 BASE) MCG/ACT INHALATION AEROSOL SO LUTION 1 puff every 6 hours as needed ALBUTEROL SULFATE 19013714705 No Long er Active Tesfaye Sherman MD Active PREDNISONE 20 MG ORAL TABLET 1 tab twice daily for 3 d ay, then one daily for three days PREDNISONE 36873075318 No Longer Active Tesfaye Sherman MD Active MECLIZINE HCL 25 MG ORAL TABLET one 4 times a day as needed for dizziness MECLIZINE HCL 93001385075 Active Tesfaye Sherman MD Active AMOXICILLIN 500 MG ORAL CAPSULE 1 cap by mouth three times a day AMOXICILLIN 60749329079 No Longer Active Laurence Dominguez Acti ve VENLAFAXINE HCL 75 MG ORAL TABLET 1 am 1/2 at noon VENLAFAXINE HCL 80260002964 Active Tesfaye Sherman MD Active DIFLUCAN 100 MG ORAL TABLET 1 tablet by mouth daily 20 19/08/26 FLUCONAZOLE 72347967001 No Longer Active Tesfaye Sherman MD Acti ve BACTRIM DS 800-160 MG ORAL TABLET 1 tab by mouth twice daily 201 05/10/28 TRIMETHOPRIM-SULFAMETHOXAZOLE 27807789779 No Longer Active Fer Dominguez Active FOSAMAX 70 MG ORAL TABLET 1 po qweek. Take 30min prio r to first food/drink. Avoid lying down x 1 hour. ALENDRONATE SODIUM 87860634 144 No Longer Active Laurence Dominguez Active CYMBALTA 60 MG ORAL CAPSULE DELAYED RELEASE PARTICLES Take 1 tablet by mouth daily DULOXETINE HCL 42835639769 No Longer Active Edith Burch MD Active CYMBALTA 30 MG ORAL CAPSULE DELAYED RELEASE PARTICLES 1 cap by mouth daily with 60mg DULOXETINE HCL 28024374909 No Longer Active Jordan Burch MD Active FISH OIL 1000 MG ORAL CAPSULE DELAYED RELEASE 1 pill b y mouth daily for cholesterol OMEGA-3 FATTY ACIDS 30835824407 Active Cee Jaffe LPN Active DIFLUCAN 100 MG ORAL TABLET 1 tablet by mouth daily 20 19/03/05 FLUCONAZOLE 37343062179 No Longer Active Tesfaye Sherman MD Acti ve BACTRIM DS 800-160 MG ORAL TABLET 1 tab by mouth twice daily 201 05/06/28 TRIMETHOPRIM-SULFAMETHOXAZOLE 52572269156 No Longer Active Umer Sherman MD Active BACTRIM DS 800-160 MG ORAL TABLET 1 tab by mouth twice daily 201 05/04/15 TRIMETHOPRIM-SULFAMETHOXAZOLE 75777906825 No Longer Active Umer Sherman MD Active DIFLUCAN 150 MG ORAL TABLET 1 tablet by mouth daily 20 18/09/20 FLUCONAZOLE 44553889845 No Longer Active Tesfaye Sherman MD Acti ve BACTRIM DS 800-160 MG ORAL TABLET 1 tab by mouth twice daily 201 04/13/17 TRIMETHOPRIM-SULFAMETHOXAZOLE 28313105861 No Longer Active Umer Sherman MD Active ROPINIROLE HCL 0.25 MG ORAL TABLET 1 TAB PO Q HS ROPINIROLE HCL 02178556612 Active Tesfaye Sherman MD Active CEFTIN 250 MG ORAL TABLET 1 tablet twice daily x 7 days CEFUROXIME AXETIL 15998431439 No Longer Active Tesfaye Sherman MD Active DIFLUCAN 100 MG ORAL TABLET 1 tablet by mouth every other da y for 2 doses FLUCONAZOLE 71983412221 No Longer Active Tesfaye barron MD Active DIFLUCAN 100 MG ORAL TABLET 1 tablet by mouth daily X 3 DAYS 201 04/09/01 FLUCONAZOLE 04503640762 No Longer Active Rj Moss DO Ac tive MIRTAZAPINE 15 MG ORAL TABLET 1/2 tab by mouth at bedtime. 03/13 MIRTAZAPINE 18416280233 No Longer Active Tesfaye Sherman MD Active BACTRIM DS 800-160 MG ORAL TABLET 1 tab by mouth twice daily 201 04/09/01 TRIMETHOPRIM-SULFAMETHOXAZOLE 35027503830 No Longer Active Umer Sherman MD Active PRAMIPEXOLE DIHYDROCHLORIDE 0.125 MG ORAL TABLET take 1 tablet po qhs for restless leg syndrome. PRAMIPEXOLE DIHYDROCHLORI DE 89425179859 No Longer Active Tesfaye Sherman MD Active MAGNESIUM 400 MG ORAL TABLET 1 tab po daily MAGNE SIUM 15368082277 Active Chelsea Cardenas APRN Active CETIRIZINE HCL 5 MG ORAL TABLET Take 1 tablet by mouth daily CETIRIZINE HCL 61852374854 No Longer Active Chelsea Cardenas APRN Activ e TRIMETHOPRIM 100 MG ORAL TABLET 1/2 qd TRIM ETHOPRIM 22066904808 No Longer Active Chelsea Cardenas APRN Active BACTRIM DS 800-160 MG ORAL TABLET 1 tab by mouth twice daily 201 04/04/11 TRIMETHOPRIM-SULFAMETHOXAZOLE 37929006796 No Longer Active Umer Sherman MD Active BACTRIM DS 800-160 MG ORAL TABLET 1 tab by mouth twice daily X 10 DAYS TRIMETHOPRIM-SULFAMETHOXAZOLE 92997678314 No Longer Active Tesfaye Sherman MD Active AMOXICILLIN 500 MG ORAL CAPSULE 1 cap by mouth three times a day AMOXICILLIN 97192622274 No Longer Active MARCUS Maravilla ctive B-12 1000 MCG ORAL LOZENGE 1 tab po daily CYANO COBALAMIN 85779892137 Active Tesfaye Sherman MD Active VITAMIN D3 2000 UNIT ORAL TABLET 1 daily, for vitamin D deficien cy CHOLECALCIFEROL 71199021253 No Longer Active Tesfaye Sherman MD Active TIZANIDINE HCL 2 MG ORAL TABLET take 1-2 tablet by mo uth every day at bedtime at 9pm PRN TIZANIDINE HCL 70317353838 Active Tesfaye hewitt MD Active ZITHROMAX 250 MG ORAL TABLET 2 po today, then 1 po q days 2-5 20 15/02/10 AZITHROMYCIN 45361938820 No Longer Active Tesfaye Sherman MD Active BACTRIM DS 800-160 MG ORAL TABLET 1 tab by mouth twice daily 201 03/03/23 TRIMETHOPRIM-SULFAMETHOXAZOLE 39729034927 No Longer Active Umer Sherman MD Active [facility] NIACIN FLUSH FREE 400-100 MG ORAL CAPSULE 1 daily NIACIN-INOSITOL 82701250384 Active Kayla Cooper MD Activ e DIFLUCAN 150 MG ORAL TABLET 1 qd FLUCONAZOL E 52160057511 No Longer Active Kayla Cooper MD Active FLUTICASONE PROPIONATE 50 MCG/ACT NASAL SUSPENSION 1 spray each nostril twice daily FLUTICASONE PROPIONATE 52403078630 Active D patricia Sherman MD Active LOVASTATIN 20 MG ORAL TABLET Take 1 tablet by mouth daily LOVASTATIN 03127679418 No Longer Active Tesfaye Sherman MD Acti ve MELOXICAM 7.5 MG ORAL TABLET 1 tablet by mouth daily 2 MELOXICAM 39348802630 No Longer Active Tesfaye Sherman MD Acti ve GABAPENTIN 300 MG ORAL CAPSULE Take two tablets by mouth every e vening GABAPENTIN 03526221339 No Longer Active Edith Burch MD A ctive BACLOFEN 10 MG ORAL TABLET Take one tablet by mouth three times a d ay BACLOFEN 38998179606 Active Kayla Cooper MD Active GABAPENTIN 300 MG ORAL CAPSULE Take two tablets by mouth every e vening GABAPENTIN 300 MG ORAL CAPSULE 038213 GABAPENTIN I nactive MELOXICAM 7.5 MG ORAL TABLET 1 tablet by mouth daily 2 MELOXICAM 7.5 MG ORAL TABLET 786990 MELOXICAM Inactive LOVASTATIN 20 MG ORAL TABLET Take 1 tablet by mouth daily LOVASTATIN 20 MG ORAL TABLET 704515 LOVASTATIN Inactive DIFLUCAN 150 MG ORAL TABLET 1 qd DIFLUCAN 150 MG ORAL TABLET 082033 FLUCONAZOLE Inactive VITAMIN D3 2000 UNIT ORAL TABLET 1 daily, for vitamin D deficien cy VITAMIN D3 2000 UNIT ORAL TABLET CHOLECALCIFEROL Inactive AMOXICILLIN 500 MG ORAL CAPSULE 1 cap by mouth three times a day AMOXICILLIN 500 MG ORAL CAPSULE 106823 AMOXICILLIN Inactive BACTRIM DS 800-160 MG ORAL TABLET 1 tab by mouth twice daily X 10 DAYS BACTRIM DS 800-160 MG ORAL TABLET 221446 TRIMETHOPRIM-SULFAMETHOXAZOLE Inactive TRIMETHOPRIM 100 MG ORAL TABLET 1/2 qd 7 TRIMETHOPRIM 100 MG ORAL TABLET 583007 TRIMETHOPRIM Inactive CETIRIZINE HCL 5 MG ORAL TABLET Take 1 tablet by mouth daily CETIRIZINE HCL 5 MG ORAL TABLET 2988314 CETIRIZINE HCL Inactive PRAMIPEXOLE DIHYDROCHLORIDE 0.125 MG ORAL TABLET take 1 tablet po qhs for restless leg syndrome. PRAMIPEXOLE DIHYD ROCHLORIDE 0.125 MG ORAL TABLET 152009 PRAMIPEXOLE DIHYDROCHLORIDE Inactive MIRTAZAPINE 15 MG ORAL TABLET 1/2 tab by mouth at bedtime. 03/13 MIRTAZAPINE 15 MG ORAL TABLET 898605 MIRTAZAPINE In active DIFLUCAN 100 MG ORAL TABLET 1 tablet by mouth daily X 3 DAYS 201 04/09/01 DIFLUCAN 100 MG ORAL TABLET 479670 FLUCONAZOLE Inac tive DIFLUCAN 100 MG ORAL TABLET 1 tablet by mouth every other da y for 2 doses DIFLUCAN 100 MG ORAL TABLET 235813 FLUCONAZOLE Inactive CEFTIN 250 MG ORAL TABLET 1 tablet twice daily x 7 days CEFTIN 250 MG ORAL TABLET CEFUROXIME AXETIL Inactive CYMBALTA 30 MG ORAL CAPSULE DELAYED RELEASE PARTICLES 1 cap by mouth daily with 60mg CYMBALTA 30 MG ORAL CAPSULE DELAYED RELEASE PARTICLES 548795 DULOXETINE HCL Inactive CYMBALTA 60 MG ORAL CAPSULE DELAYED RELEASE PARTICLES Take 1 tablet by mouth daily CYMBALTA 60 MG ORAL CAPSULE DELAYED RELEA SE PARTICLES 203239 DULOXETINE HCL Inactive FOSAMAX 70 MG ORAL TABLET 1 po qweek. Take 30min prio r to first food/drink. Avoid lying down x 1 hour. FOSAMAX 70 MG ORAL TA BLET 416997 ALENDRONATE SODIUM Inactive DIFLUCAN 100 MG ORAL TABLET 1 tablet by mouth daily 19/08/26 DIFLUCAN 100 MG ORAL TABLET 592147 FLUCONAZOLE Inactive PREDNISONE 20 MG ORAL TABLET 1 tab twice daily for 3 d ay, then one daily for three days PREDNISONE 20 MG ORAL TABLET 832567 PREDNIS ONE Inactive PROAIR HFA 108 (90 BASE) MCG/ACT INHALATION AEROSOL SO LUTION 1 puff every 6 hours as needed PROAIR HFA 108 (90 B ASE) MCG/ACT INHALATION AEROSOL SOLUTION ALBUTEROL SULFATE Inactive MECLIZINE HCL 25 MG ORAL TABLET one tab po qday prn dizziness 20 17/09/06 MECLIZINE HCL 25 MG ORAL TABLET 709881 MECLIZINE HCL Inactive PREDNISONE 20 MG ORAL TABLET 1 tablet by mouth twice d aily for 3 days, then 1 tablet daily for 3 days PREDNISONE 20 MG ORAL TA BLET 446134 PREDNISONE Inactive DIFLUCAN 100 MG ORAL TABLET 1 tablet by mouth daily 20/06/06 DIFLUCAN 100 MG ORAL TABLET 007692 FLUCONAZOLE Inactive REPHRESH PRO-B ORAL CAPSULE 1 tablet daily REPHRESH PRO-B ORAL CAPSULE LACTOBACILLUS Inactive RED YEAST RICE 600 MG ORAL CAPSULE 1 pill by mouth daily RED YEAST RICE 600 MG ORAL CAPSULE 791224 RED YEAST RICE EXTRACT In active SUDAFED [...] 20 15/02/10 ZITHROMAX 250 MG ORAL TABLET 289776 AZITHROMYCIN Mayela ctive BACTRIM DS 800-160 MG [...] a day AMOXICILLIN 500 MG ORAL CAPSULE 626966 AMOXICILLIN Inactive ZITHROMAX 250 MG ORAL TABLET 2 po today, then 1 po q days 2-5 20 20/04/28 ZITHROMAX 250 MG ORAL TABLET 687592 AZITHROMYCIN Mayela ctive DIFLUCAN 100 MG ORAL TABLET 1 tablet by mouth daily 20 20/05/01 DIFLUCAN 100 MG ORAL TABLET 435241 FLUCONAZOLE Inactive BACTRIM DS 800-160 MG ORAL TABLET 1 tab by mouth twice daily 201 06/09/02 BACTRIM DS 800-160 MG ORAL TABLET 068622 TRIMETHOPRIM-SULFAMETHOXAZOLE Inactive Advance Directives Directive Description Start Date PERMISSION TO SHARE DISCUSSED WITH PATIENT -- NO DECISION MADE DURABLE POWER OF ELECTRONIC DEVICE MONITOR FOR HEALTHCARE DISCUSED WITH PATIENT -- FULL [...] dipstick Trace-lysed Negative sodium, serum 139 mmol/L 701-196 8647/11/07 carbon dioxide, venous blood 28.4 mmol/L 21.0-32 [...] 5.0-8.5 Encounters Code Encounter Date Provider Facility CPT-40334 [id number] Vst-Est Level IV 14:00:[address] Tesfaye Sherman MD [facility] CPT-94800 [id number] Vst-Est Level IV 19:27:[address] Tesfaye Sherman MD [facility] CPT-29211 [id number] Vst-Est Level IV 10:41:41 C BRIDGET Sherman MD [facility] CPT-41001 [id number] Vst-Est Level III 09:40:56 CDT Tesfaye Sherman MD [facility] CPT-74934 Level 4 Est. Patient 22:18:12 CDT Tesfaye pearson MD [facility] CPT-60873 Level 4 Est. Patient 14:44:33 COMMERCIAL ANALYST Tesfaye pearson MD [facility] CPT-04338 Level 4 Est. Patient 13:55:29 COMMERCIAL ANALYST Tesfaye pearson MD [facility] CPT-77542 Level 4 Est. Patient 17:07:34 COMMERCIAL ANALYST Tesfaye pearson MD [facility] CPT-87889 Level 4 Est. Patient 13:56:54 CDT Tesfaye pearson MD [facility] CPT-30946 Level 4 Est. Patient 13:24:25 CDT Chelsea sanz APRN [facility] CPT-97640 Level 4 Est. Patient 09:14:56 CDT Tesfaye pearson MD [facility]-04348 Level 4 Est. Patient 18:40:25 COMMERCIAL ANALYST Tesfaye pearson MD [facility]-38935 Level 4 Est. Patient 18:13:07 COMMERCIAL ANALYST Tesfaye pearson MD [facility]-90098 Level 3 Est. Patient 10:46:32 CDT Rj cotto DO [facility] CPT-96779 Level 4 Est. Patient 20:19:25 CDT Tesfaye pearson MD [facility] CPT-98126 Level 3 Est. Patient 09:07:31 CDT Tesfaye pearson MD [facility]-68176 Level 4 Est. Patient 13:12:56 CDT Tesfaye pearson MD [facility]-40815 Level 4 Est. Patient 21:24:55 COMMERCIAL ANALYST Tesfaye pearson MD [facility]-24748 Level 3 Est. Patient 13:45:04 COMMERCIAL ANALYST Tesfaye pearson MD [facility] CPT-38175 Level 4 Est. Patient 13:50:45 CDT Tesfaye pearson MD [facility] CPT-45207 Level 3 Est. Patient 10:16:10 CDT Tesfaye pearson MD [facility] CPT-81539 Level 3 Est. Patient 16:36:07 COMMERCIAL ANALYST Kayla jameson MD [facility] CPT-70790 Level 4 Est. Patient 16:00:14 COMMERCIAL ANALYST Tesfaye pearson MD [facility] CPT-47388 Level 4 Est. Patient 11:02:24 COMMERCIAL ANALYST Tesfaye pearson MD [facility] CPT-28324 Level 3 Est. Patient 20:21:43 COMMERCIAL ANALYST Kayla jameson MD [facility] CPT-80297 Level 3 Est. Patient 13:27:28 COMMERCIAL ANALYST Kayla jameson MD [facility] CPT-88343 Level 4 Est. Patient 15:57:17 COMMERCIAL ANALYST Tesfaye pearson MD [facility] CPT-81361 Level 3 New Patient 13:25:47 CDT Tesfaye kidd MD [facility] CPT-66017 Level 3 New Patient 17:22:21 CDT Kayla angel MD [facility] Procedures Code Procedure Name Date Entry Date Standard Desc ription CPT-G0439 Subsequent Annual Wellness Exam 22:18:11 CDT CPT-66949 Bone Density - XRAY USE ONLY 11:43:58 CDT 2 CPT-47407 Bone Density - XRAY USE ONLY 10:05:16 CDT 2 CPT-12090 Prv Med New Pt 40-64 yrs 18:19:25 CDT 2016 CPT-42567 Foot, right, comp min 3V - XRAY USE ONLY 10:38:34 CDT CPT-G0439 Subsequent Annual Wellness Exam 13:55:04 CDT CPT-G0438 Initial Annual Wellness Exam 11:23:17 CD T CPT-J2930 Solu Medrol 125 mg (Methyl Prednisolone Sodium Succinate) 17:29:12 COMMERCIAL ANALYST CPT-18518 Abx/Therapy Injection 17:29:11 COMMERCIAL ANALYST CPT-J2930 Solu Medrol 125 mg (Methyl Prednisolone Sodium Succinate) 12:34:38 COMMERCIAL ANALYST CPT-J3420 Vitamin B12 1000mcg (Cyanocobalamin) 09:12:55 CDT CPT-J3420 Vitamin B12 1000mcg (Cyanocobalamin) 16:28:06 COMMERCIAL ANALYST CPT-62779 Venipuncture Draw Fee 08:39:53 CDT CPT-J3420 Vitamin B12 1000mcg (Cyanocobalamin) 08:46:22 CDT CPT-19192 Abx/Therapy Injection 08:46:22 CDT CPT-J3420 Vitamin B12 1000mcg (Cyanocobalamin) 08:41:26 CDT CPT-78373 Abx/Therapy Injection 08:41:26 CDT CPT-J3420 Vitamin B12 1000mcg (Cyanocobalamin) 08:57:15 CDT CPT-67860 Abx/Therapy Injection 08:57:15 CDT CPT-J3420 Vitamin B12 1000mcg (Cyanocobalamin) 10:59:03 CDT CPT-76941 Abx/Therapy Injection 10:59:03 CDT CPT-J3420 Vitamin B12 1000mcg (Cyanocobalamin) 15:05:39 CDT CPT-38017 Abx/Therapy Injection 15:05:39 CDT CPT-J3420 Vitamin B12 1000mcg (Cyanocobalamin) 13:50:45 CDT CPT-J3420 Vitamin B12 1000mcg (Cyanocobalamin) 08:48:55 CDT CPT-97875 Abx/Therapy Injection 08:48:55 CDT CPT-J3420 Vitamin B12 1000mcg (Cyanocobalamin) 09:14:54 CDT CPT-26554 Abx/Therapy Injection 09:14:54 CDT CPT-J3420 Vitamin B12 1000mcg (Cyanocobalamin) 09:06:06 CDT CPT-00344 Abx/Therapy Injection 09:06:06 CDT CPT-J3420 Vitamin B12 1000mcg (Cyanocobalamin) 09:49:14 CDT CPT-19931 Abx/Therapy Injection 09:49:14 CDT CPT-J3420 Vitamin B12 1000mcg (Cyanocobalamin) 09:10:30 COMMERCIAL ANALYST CPT-07875 Abx/Therapy Injection 09:10:30 COMMERCIAL ANALYST CPT-J3420 Vitamin B12 1000mcg (Cyanocobalamin) 09:11:07 COMMERCIAL ANALYST CPT-78545 Abx/Therapy Injection 09:11:07 COMMERCIAL ANALYST CPT-J3420 Vitamin B12 1000mcg (Cyanocobalamin) 09:57:03 COMMERCIAL ANALYST CPT-51020 Abx/Therapy Injection 09:57:03 COMMERCIAL ANALYST CPT-J3420 Vitamin B12 1000mcg (Cyanocobalamin) 09:23:21 COMMERCIAL ANALYST CPT-16983 Abx/Therapy Injection 09:23:21 COMMERCIAL ANALYST CPT-06379 Urine Dip (Floor Use Only) 20:21:44 COMMERCIAL ANALYST 201 02/12/11 CPT-36711 UA Dip Auto (Floor Use Only) 10:04:39 COMMERCIAL ANALYST 2 CPT-12853 Urine Dip (Floor Use Only) 13:27:28 COMMERCIAL ANALYST 201 02/12/01 CPT-41083 Bladder Scan 13:27:28 COMMERCIAL ANALYST CPT-78896 Abd single AP View 14:30:51 COMMERCIAL ANALYST CPT-OV Office Visit 10:15:43 CDT CPT-90833 Urine Dip (Floor Use Only) 17:22:21 CDT 201 02/09/02 CPT-80286 Bladder Scan 17:22:21 CDT
--- OUTSIDE RECORDS SUMMARY | 2020-05-05 11:39 | XMS REPORT | Clinical Summary ---
Author Author Talon, Jeri Wood Organization [facility] Address Unknown Phone Unavailable Allergies, Adverse Reactions, [...] Sherman MD Routine general medical examination at [facility] acility Sinusitis 461.9 Resolved Tesfaye Sherman MD [...] Inactive Wilner Sherman MD Vertigo ICD-780.4 Inactive Tesafye Sherman MD 201 07/05/07 Body Mass Index 20.0-20.9 Adult Inactiv jim Shah A Dysuria ICD-788.1 Inactive Tesfaye Sherman MD 201 07/05/07 Yeast infection ICD-112.9 Inactive Tesfaye lamb MD Upper respiratory infection ICD-465.9 Inactive Tesfaye Sherman MD Medication List Medication Instructions Start Date Stop Date Generic Name NDC Status Provider Patient Instruction DIFLUCAN 100 MG ORAL TABLET 1 tablet by mouth daily FLUCONAZOLE 52925288322 Active Tesfaye Sherman MD Active OXYCODONE-ACETAMINOPHEN 5-325 MG ORAL TABLET Take one tablet by mouth every 6 hours 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 Use sparingly OXYCODONE-ACETAMINOPHEN 52050811831 Active Tesfaye villar MD Active CLONAZEPAM 0.5 MG ORAL TABLET Take 1/2 qam, and 1/2 qpm CLONAZEPAM 37029193380 Active Tesfaye Sherman MD Active PRELIEF 340 (65-50) MG (CA-P) ORAL TABLET CALCIUM GLYCEROPHOSPHATE 52406228513 No Longer Active Tesfaye Sherman MD Active SUDAFED 24 HOUR 240 MG ORAL TABLET EXTENDED RELEASE 24 HOUR 1 tab po daily PSEUDOEPHEDRINE HCL 95588960691 No Longer Active Rauleh Sherman MD Active RED YEAST RICE 600 MG ORAL CAPSULE 1 pill by mouth daily RED YEAST RICE EXTRACT 90934278227 No Longer Active Tesfaye Sherman MD Active REPHRESH PRO-B ORAL CAPSULE 1 tablet daily LACT OBACILLUS 49826190349 No Longer Active Tesfaye Sherman MD Active GABAPENTIN 300 MG ORAL CAPSULE 1-2 po daily GABAP ENTIN 41579095047 Active Tesfaye Sherman MD Active SUDAFED 12 HOUR 120 MG ORAL TABLET EXTENDED RELEASE 12 HOUR 1 pill twice daily if needed for congestion PSEUDOEPHEDRINE HCL 09781666590 A ctive Tesfaye Sherman MD Active ABILIFY 2 MG ORAL TABLET 1 by mouth daily. MARIA ELENA PIPRAZOLE 76103063993 Active Tesfaye Sherman MD Active CYMBALTA 60 MG ORAL CAPSULE DELAYED RELEASE PARTICLES 1 cap by mouth daily for pain DULOXETINE HCL 38455495339 Active Tesfaye Owusu Active DIFLUCAN 100 MG ORAL TABLET 1 tablet by mouth daily 20 20/06/06 FLUCONAZOLE 53002230891 No Longer Active Tesfaye Sherman MD Acti ve PREDNISONE 20 MG ORAL TABLET 1 tablet by mouth twice d aily for 3 days, then 1 tablet daily for 3 days PREDNISONE 66718939875 No L onger Active Tesfaye Sherman MD Active DIFLUCAN 100 MG ORAL TABLET 1 tablet by mouth daily FLUCONAZOLE 10512412131 Active Tesfaye Sherman MD Active BACTRIM DS 800-160 MG ORAL TABLET 1 tab by mouth twice daily 201 06/09/02 TRIMETHOPRIM-SULFAMETHOXAZOLE 29162452544 No Longer Active Fer Dominguez Active DIFLUCAN 100 MG ORAL TABLET 1 tablet by mouth daily 20 20/05/01 FLUCONAZOLE 70582035444 No Longer Active Tesfaye Sherman MD Acti ve ZITHROMAX 250 MG ORAL TABLET 2 po today, then 1 po q days 2-5 20 20/04/28 AZITHROMYCIN 87323441158 No Longer Active Tesfaye Sherman MD Active MECLIZINE HCL 25 MG ORAL TABLET one tab po qday prn dizziness 20 17/09/06 MECLIZINE HCL 51480081232 No Longer Active Tesfaye Sherman MD Active PROAIR HFA 108 (90 BASE) MCG/ACT INHALATION AEROSOL SO LUTION 1 puff every 6 hours as needed ALBUTEROL SULFATE 51021162359 No Long er Active Tesfaye Sherman MD Active PREDNISONE 20 MG ORAL TABLET 1 tab twice daily for 3 d ay, then one daily for three days PREDNISONE 63740347753 No Longer Active Tesfaye Sherman MD Active MECLIZINE HCL 25 MG ORAL TABLET one 4 times a day as needed for dizziness MECLIZINE HCL 92665693707 Active Tesfaye Sherman MD Active AMOXICILLIN 500 MG ORAL CAPSULE 1 cap by mouth three times a day AMOXICILLIN 43751320572 No Longer Active Laurence Dominguez Acti ve VENLAFAXINE HCL 75 MG ORAL TABLET 1 am 1/2 at noon VENLAFAXINE HCL 08555183839 Active Tesfaye Sherman MD Active DIFLUCAN 100 MG ORAL TABLET 1 tablet by mouth daily 20 19/08/26 FLUCONAZOLE 49373517465 No Longer Active Tesfaye Sherman MD Acti ve BACTRIM DS 800-160 MG ORAL TABLET 1 tab by mouth twice daily 201 05/10/28 TRIMETHOPRIM-SULFAMETHOXAZOLE 05555369195 No Longer Active Fer Dominguez Active FOSAMAX 70 MG ORAL TABLET 1 po qweek. Take 30min prio r to first food/drink. Avoid lying down x 1 hour. ALENDRONATE SODIUM 09380916 144 No Longer Active Laurence Dominguez Active CYMBALTA 60 MG ORAL CAPSULE DELAYED RELEASE PARTICLES Take 1 tablet by mouth daily DULOXETINE HCL 54505051968 No Longer Active Edith Burch MD Active CYMBALTA 30 MG ORAL CAPSULE DELAYED RELEASE PARTICLES 1 cap by mouth daily with 60mg DULOXETINE HCL 18305620170 No Longer Active Jordan Burch MD Active FISH OIL 1000 MG ORAL CAPSULE DELAYED RELEASE 1 pill b y mouth daily for cholesterol OMEGA-3 FATTY ACIDS 83271625208 Active Cee Jaffe LPN Active DIFLUCAN 100 MG ORAL TABLET 1 tablet by mouth daily 20 19/03/05 FLUCONAZOLE 08259444112 No Longer Active Tesfaye Sherman MD Acti ve BACTRIM DS 800-160 MG ORAL TABLET 1 tab by mouth twice daily 201 05/06/28 TRIMETHOPRIM-SULFAMETHOXAZOLE 88655825742 No Longer Active Umer Sherman MD Active BACTRIM DS 800-160 MG ORAL TABLET 1 tab by mouth twice daily 201 05/04/15 TRIMETHOPRIM-SULFAMETHOXAZOLE 86171590746 No Longer Active Umer hSerman MD Active DIFLUCAN 150 MG ORAL TABLET 1 tablet by mouth daily 20 18/09/20 FLUCONAZOLE 47097758321 No Longer Active Tesfaye Sherman MD Acti ve BACTRIM DS 800-160 MG ORAL TABLET 1 tab by mouth twice daily 201 04/13/17 TRIMETHOPRIM-SULFAMETHOXAZOLE 62953203863 No Longer Active Umer Sherman MD Active ROPINIROLE HCL 0.25 MG ORAL TABLET 1 TAB PO Q HS ROPINIROLE HCL 41884523433 Active Tesfaye Sherman MD Active CEFTIN 250 MG ORAL TABLET 1 tablet twice daily x 7 days CEFUROXIME AXETIL 08004926628 No Longer Active Tesfaye Sherman MD Active DIFLUCAN 100 MG ORAL TABLET 1 tablet by mouth every other da y for 2 doses FLUCONAZOLE 47425816123 No Longer Active Tesfaye barron MD Active DIFLUCAN 100 MG ORAL TABLET 1 tablet by mouth daily X 3 DAYS 201 04/09/01 FLUCONAZOLE 28686500026 No Longer Active Rj Moss DO Ac tive MIRTAZAPINE 15 MG ORAL TABLET 1/2 tab by mouth at bedtime. 03/13 MIRTAZAPINE 48066897108 No Longer Active Tesfaye Sherman MD Active BACTRIM DS 800-160 MG ORAL TABLET 1 tab by mouth twice daily 201 04/09/01 TRIMETHOPRIM-SULFAMETHOXAZOLE 29348421245 No Longer Active Umer Sherman MD Active PRAMIPEXOLE DIHYDROCHLORIDE 0.125 MG ORAL TABLET take 1 tablet po qhs for restless leg syndrome. PRAMIPEXOLE DIHYDROCHLORI DE 73132066305 No Longer Active Tesfaye Sherman MD Active MAGNESIUM 400 MG ORAL TABLET 1 tab po daily MAGNE SIUM 42314474570 Active Chelsea Cardenas APRN Active CETIRIZINE HCL 5 MG ORAL TABLET Take 1 tablet by mouth daily CETIRIZINE HCL 88152247986 No Longer Active Chelsea Cardenas APRN Activ e TRIMETHOPRIM 100 MG ORAL TABLET 1/2 qd TRIM ETHOPRIM 53104964836 No Longer Active Chelsea Cardenas APRN Active BACTRIM DS 800-160 MG ORAL TABLET 1 tab by mouth twice daily 201 04/04/11 TRIMETHOPRIM-SULFAMETHOXAZOLE 94896176241 No Longer Active Umer Sherman MD Active BACTRIM DS 800-160 MG ORAL TABLET 1 tab by mouth twice daily X 10 DAYS TRIMETHOPRIM-SULFAMETHOXAZOLE 71694466896 No Longer Active Tesfaye Sherman MD Active AMOXICILLIN 500 MG ORAL CAPSULE 1 cap by mouth three times a day AMOXICILLIN 23612862396 No Longer Active MARCUS Maravilla ctive B-12 1000 MCG ORAL LOZENGE 1 tab po daily CYANO COBALAMIN 57068019334 Active Tesfaye Sherman MD Active VITAMIN D3 2000 UNIT ORAL TABLET 1 daily, for vitamin D deficien cy CHOLECALCIFEROL 93558270567 No Longer Active Tesfaye Sherman MD Active TIZANIDINE HCL 2 MG ORAL TABLET take 1-2 tablet by mo uth every day at bedtime at 9pm PRN TIZANIDINE HCL 56919497042 Active Tesfaye hewitt MD Active ZITHROMAX 250 MG ORAL TABLET 2 po today, then 1 po q days 2-5 20 15/02/10 AZITHROMYCIN 75476212333 No Longer Active Tesfaye Sherman MD Active BACTRIM DS 800-160 MG ORAL TABLET 1 tab by mouth twice daily 201 03/03/23 TRIMETHOPRIM-SULFAMETHOXAZOLE 46589549091 No Longer Active Umer Sherman MD Active [facility] NIACIN FLUSH FREE 400-100 MG ORAL CAPSULE 1 daily NIACIN-INOSITOL 65936329284 Active Kayla Cooper MD Activ e DIFLUCAN 150 MG ORAL TABLET 1 qd FLUCONAZOL E 45811017558 No Longer Active Kayla Cooper MD Active FLUTICASONE PROPIONATE 50 MCG/ACT NASAL SUSPENSION 1 spray each nostril twice daily FLUTICASONE PROPIONATE 54418279151 Active D patricia Sherman MD Active LOVASTATIN 20 MG ORAL TABLET Take 1 tablet by mouth daily LOVASTATIN 13736272943 No Longer Active Tesfaye Sherman MD Acti ve MELOXICAM 7.5 MG ORAL TABLET 1 tablet by mouth daily 2 MELOXICAM 55683049733 No Longer Active Tesfaye Sherman MD Acti ve GABAPENTIN 300 MG ORAL CAPSULE Take two tablets by mouth every e vening GABAPENTIN 56780835659 No Longer Active Edith Burch MD A ctive BACLOFEN 10 MG ORAL TABLET Take one tablet by mouth three times a d ay BACLOFEN 73376228024 Active Kayla Cooper MD Active GABAPENTIN 300 MG ORAL CAPSULE Take two tablets by mouth every e vening GABAPENTIN 300 MG ORAL CAPSULE 351936 GABAPENTIN I nactive MELOXICAM 7.5 MG ORAL TABLET 1 tablet by mouth daily 2 MELOXICAM 7.5 MG ORAL TABLET 997554 MELOXICAM Inactive LOVASTATIN 20 MG ORAL TABLET Take 1 tablet by mouth daily LOVASTATIN 20 MG ORAL TABLET 242165 LOVASTATIN Inactive DIFLUCAN 150 MG ORAL TABLET 1 qd DIFLUCAN 150 MG ORAL TABLET 399707 FLUCONAZOLE Inactive VITAMIN D3 2000 UNIT ORAL TABLET 1 daily, for vitamin D deficien cy VITAMIN D3 2000 UNIT ORAL TABLET CHOLECALCIFEROL Inactive AMOXICILLIN 500 MG ORAL CAPSULE 1 cap by mouth three times a day AMOXICILLIN 500 MG ORAL CAPSULE 319786 AMOXICILLIN Inactive BACTRIM DS 800-160 MG ORAL TABLET 1 tab by mouth twice daily X 10 DAYS BACTRIM DS 800-160 MG ORAL TABLET 878038 TRIMETHOPRIM-SULFAMETHOXAZOLE Inactive TRIMETHOPRIM 100 MG ORAL TABLET 1/2 qd 7 TRIMETHOPRIM 100 MG ORAL TABLET 803788 TRIMETHOPRIM Inactive CETIRIZINE HCL 5 MG ORAL TABLET Take 1 tablet by mouth daily CETIRIZINE HCL 5 MG ORAL TABLET 1348558 CETIRIZINE HCL Inactive PRAMIPEXOLE DIHYDROCHLORIDE 0.125 MG ORAL TABLET take 1 tablet po qhs for restless leg syndrome. PRAMIPEXOLE DIHYD ROCHLORIDE 0.125 MG ORAL TABLET 041562 PRAMIPEXOLE DIHYDROCHLORIDE Inactive MIRTAZAPINE 15 MG ORAL TABLET 1/2 tab by mouth at bedtime. 03/13 MIRTAZAPINE 15 MG ORAL TABLET 898458 MIRTAZAPINE In active DIFLUCAN 100 MG ORAL TABLET 1 tablet by mouth daily X 3 DAYS 201 04/09/01 DIFLUCAN 100 MG ORAL TABLET 391090 FLUCONAZOLE Inac tive DIFLUCAN 100 MG ORAL TABLET 1 tablet by mouth every other da y for 2 doses DIFLUCAN 100 MG ORAL TABLET 939727 FLUCONAZOLE Inactive CEFTIN 250 MG ORAL TABLET 1 tablet twice daily x 7 days CEFTIN 250 MG ORAL TABLET CEFUROXIME AXETIL Inactive CYMBALTA 30 MG ORAL CAPSULE DELAYED RELEASE PARTICLES 1 cap by mouth daily with 60mg CYMBALTA 30 MG ORAL CAPSULE DELAYED RELEASE PARTICLES 762349 DULOXETINE HCL Inactive CYMBALTA 60 MG ORAL CAPSULE DELAYED RELEASE PARTICLES Take 1 tablet by mouth daily CYMBALTA 60 MG ORAL CAPSULE DELAYED RELEA SE PARTICLES 643545 DULOXETINE HCL Inactive FOSAMAX 70 MG ORAL TABLET 1 po qweek. Take 30min prio r to first food/drink. Avoid lying down x 1 hour. FOSAMAX 70 MG ORAL TA BLET 617028 ALENDRONATE SODIUM Inactive DIFLUCAN 100 MG ORAL TABLET 1 tablet by mouth daily 19/08/26 DIFLUCAN 100 MG ORAL TABLET 599796 FLUCONAZOLE Inactive PREDNISONE 20 MG ORAL TABLET 1 tab twice daily for 3 d ay, then one daily for three days PREDNISONE 20 MG ORAL TABLET 210387 PREDNIS ONE Inactive PROAIR HFA 108 (90 BASE) MCG/ACT INHALATION AEROSOL SO LUTION 1 puff every 6 hours as needed PROAIR HFA 108 (90 B ASE) MCG/ACT INHALATION AEROSOL SOLUTION ALBUTEROL SULFATE Inactive MECLIZINE HCL 25 MG ORAL TABLET one tab po qday prn dizziness 20 17/09/06 MECLIZINE HCL 25 MG ORAL TABLET 619918 MECLIZINE HCL Inactive PREDNISONE 20 MG ORAL TABLET 1 tablet by mouth twice d aily for 3 days, then 1 tablet daily for 3 days PREDNISONE 20 MG ORAL TA BLET 817354 PREDNISONE Inactive DIFLUCAN 100 MG ORAL TABLET 1 tablet by mouth daily 20/06/06 DIFLUCAN 100 MG ORAL TABLET 990758 FLUCONAZOLE Inactive REPHRESH PRO-B ORAL CAPSULE 1 tablet daily REPHRESH PRO-B ORAL CAPSULE LACTOBACILLUS Inactive RED YEAST RICE 600 MG ORAL CAPSULE 1 pill by mouth daily RED YEAST RICE 600 MG ORAL CAPSULE 542535 RED YEAST RICE EXTRACT In active SUDAFED [...] 20 15/02/10 ZITHROMAX 250 MG ORAL TABLET 550239 AZITHROMYCIN Mayela ctive BACTRIM DS 800-160 MG [...] a day AMOXICILLIN 500 MG ORAL CAPSULE 120392 AMOXICILLIN Inactive ZITHROMAX 250 MG ORAL TABLET 2 po today, then 1 po q days 2-5 20 20/04/28 ZITHROMAX 250 MG ORAL TABLET 223088 AZITHROMYCIN Mayela ctive DIFLUCAN 100 MG ORAL TABLET 1 tablet by mouth daily 20 20/05/01 DIFLUCAN 100 MG ORAL TABLET 791545 FLUCONAZOLE Inactive BACTRIM DS 800-160 MG ORAL TABLET 1 tab by mouth twice daily 201 06/09/02 BACTRIM DS 800-160 MG ORAL TABLET 682587 TRIMETHOPRIM-SULFAMETHOXAZOLE Inactive Advance Directives Directive Description Start Date PERMISSION TO SHARE DISCUSSED WITH PATIENT -- NO DECISION MADE DURABLE POWER OF SCHEDULING ASSISTANT FOR HEALTHCARE DISCUSED WITH PATIENT -- FULL [...] d blood pressure, diastolic 76 mm[Hg] BP lyno blood pressure, systolic 131 mm[Hg] BP sys [...] dipstick Trace-lysed Negative sodium, serum 139 mmol/L 431-135 2476/11/07 carbon dioxide, venous blood 28.4 mmol/L 21.0-32 [...] 5.0-8.5 Encounters Code Encounter Date Provider Facility CPT-62361 [id number] Vst-Est Level IV 14:00:[address] Tesfaye Sherman MD [facility] CPT-82751 [id number] Vst-Est Level IV 19:27:[address] Tesfaye Sherman MD [facility] CPT-78296 [id number] Vst-Est Level IV 10:41:41 C BRIDGET Sherman MD [facility] CPT-44689 [id number] Vst-Est Level III 09:40:56 CDT Tesfaye Sherman MD [facility] CPT-90384 Level 4 Est. Patient 22:18:12 CDT Tesfaye pearson MD [facility] CPT-02714 Level 4 Est. Patient 14:44:33 [place] Tesfaye pearson MD [facility] CPT-29020 Level 4 Est. Patient 13:55:29 [place] Tesfaye pearson MD [facility] CPT-93772 Level 4 Est. Patient 17:07:34 [place] Tesfaye pearson MD [facility] CPT-40767 Level 4 Est. Patient 13:56:54 CDT Tesfaye pearson MD [facility] CPT-14834 Level 4 Est. Patient 13:24:25 CDT Chelsea sanz APRN [facility] CPT-61062 Level 4 Est. Patient 09:14:56 CDT Tesfaye pearson MD [facility]-16455 Level 4 Est. Patient 18:40:25 [place] Tesfaye pearson MD [facility]-05774 Level 4 Est. Patient 18:13:07 [place] Tesfaye pearson MD [facility]-17177 Level 3 Est. Patient 10:46:32 CDT Rj cotto DO [facility] CPT-83949 Level 4 Est. Patient 20:19:25 CDT Tesfaye pearson MD [facility] CPT-23704 Level 3 Est. Patient 09:07:31 CDT Tesfaye pearson MD [facility]-36082 Level 4 Est. Patient 13:12:56 CDT Tesfaye pearson MD [facility]-33812 Level 4 Est. Patient 21:24:55 [place] Tesfaye pearson MD [facility]-11268 Level 3 Est. Patient 13:45:04 [place] Tesfaye pearson MD [facility] CPT-90868 Level 4 Est. Patient 13:50:45 CDT Tesfaye pearson MD [facility] CPT-30525 Level 3 Est. Patient 10:16:10 CDT Tesfaye pearson MD [facility] CPT-60092 Level 3 Est. Patient 16:36:07 [place] Kayla jameson MD [facility] CPT-06083 Level 4 Est. Patient 16:00:14 [place] Tesfaye pearson MD [facility] CPT-77868 Level 4 Est. Patient 11:02:24 [place] Tesfaye pearson MD [facility] CPT-47992 Level 3 Est. Patient 20:21:43 [place] Kayla jameson MD [facility] CPT-11073 Level 3 Est. Patient 13:27:28 [place] Kayla jameson MD [facility] CPT-23836 Level 4 Est. Patient 15:57:17 [place] Tesfaye pearson MD [facility] CPT-65361 Level 3 New Patient 13:25:47 CDT Tesfaye kidd MD [facility] CPT-37549 Level 3 New Patient 17:22:21 CDT Kayla angel MD [facility] Procedures Code Procedure Name Date Entry Date Standard Desc ription CPT-G0439 Subsequent Annual Wellness Exam 22:18:11 CDT CPT-75272 Bone Density - XRAY USE ONLY 11:43:58 CDT 2 CPT-03162 Bone Density - XRAY USE ONLY 10:05:16 CDT 2 CPT-50997 Prv Med New Pt 40-64 yrs 18:19:25 CDT 2016 CPT-13301 Foot, right, comp min 3V - XRAY USE ONLY 10:38:34 CDT CPT-G0439 Subsequent Annual Wellness Exam 13:55:04 CDT CPT-G0438 Initial Annual Wellness Exam 11:23:17 CD T CPT-J2930 Solu Medrol 125 mg (Methyl Prednisolone Sodium Succinate) 17:29:12 [place] CPT-05558 Abx/Therapy Injection 17:29:11 [place] CPT-J2930 Solu Medrol 125 mg (Methyl Prednisolone Sodium Succinate) 12:34:38 [place] CPT-J3420 Vitamin B12 1000mcg (Cyanocobalamin) 09:12:55 CDT CPT-J3420 Vitamin B12 1000mcg (Cyanocobalamin) 16:28:06 [place] CPT-64763 Venipuncture Draw Fee 08:39:53 CDT CPT-J3420 Vitamin B12 1000mcg (Cyanocobalamin) 08:46:22 CDT CPT-02033 Abx/Therapy Injection 08:46:22 CDT CPT-J3420 Vitamin B12 1000mcg (Cyanocobalamin) 08:41:26 CDT CPT-53757 Abx/Therapy Injection 08:41:26 CDT CPT-J3420 Vitamin B12 1000mcg (Cyanocobalamin) 08:57:15 CDT CPT-93365 Abx/Therapy Injection 08:57:15 CDT CPT-J3420 Vitamin B12 1000mcg (Cyanocobalamin) 10:59:03 CDT CPT-01085 Abx/Therapy Injection 10:59:03 CDT CPT-J3420 Vitamin B12 1000mcg (Cyanocobalamin) 15:05:39 CDT CPT-85675 Abx/Therapy Injection 15:05:39 CDT CPT-J3420 Vitamin B12 1000mcg (Cyanocobalamin) 13:50:45 CDT CPT-J3420 Vitamin B12 1000mcg (Cyanocobalamin) 08:48:55 CDT CPT-71855 Abx/Therapy Injection 08:48:55 CDT CPT-J3420 Vitamin B12 1000mcg (Cyanocobalamin) 09:14:54 CDT CPT-13455 Abx/Therapy Injection 09:14:54 CDT CPT-J3420 Vitamin B12 1000mcg (Cyanocobalamin) 09:06:06 CDT CPT-64038 Abx/Therapy Injection 09:06:06 CDT CPT-J3420 Vitamin B12 1000mcg (Cyanocobalamin) 09:49:14 CDT CPT-62951 Abx/Therapy Injection 09:49:14 CDT CPT-J3420 Vitamin B12 1000mcg (Cyanocobalamin) 09:10:30 [place] CPT-60229 Abx/Therapy Injection 09:10:30 [place] CPT-J3420 Vitamin B12 1000mcg (Cyanocobalamin) 09:11:07 [place] CPT-81534 Abx/Therapy Injection 09:11:07 [place] CPT-J3420 Vitamin B12 1000mcg (Cyanocobalamin) 09:57:03 [place] CPT-66740 Abx/Therapy Injection 09:57:03 [place] CPT-J3420 Vitamin B12 1000mcg (Cyanocobalamin) 09:23:21 [place] CPT-52504 Abx/Therapy Injection 09:23:21 [place] CPT-72250 Urine Dip (Floor Use Only) 20:21:44 [place] 201 02/12/11 CPT-59395 UA Dip Auto (Floor Use Only) 10:04:39 [place] 2 CPT-72282 Urine Dip (Floor Use Only) 13:27:28 [place] 201 02/12/01 CPT-81203 Bladder Scan 13:27:28 [place] CPT-89013 Abd single AP View 14:30:51 [place] CPT-OV Office Visit 10:15:43 CDT CPT-76237 Urine Dip (Floor Use Only) 17:22:21 CDT 201 02/09/02 CPT-83597 Bladder Scan 17:22:21 CDT
--- OUTSIDE RECORDS SUMMARY | 2020-05-05 11:40 | XMS REPORT | Clinical Summary ---
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 Use sparingly OXYCODONE-ACETAMINOPHEN 75714198767 Active Tesfaye villar MD Active CLONAZEPAM 0.5 MG ORAL TABLET Take 1/2 qam, and 1/2 qpm CLONAZEPAM 46201499599 Active Tesfaye Sherman MD Active PRELIEF 340 (65-50) MG (CA-P) ORAL TABLET CALCIUM GLYCEROPHOSPHATE 05182738101 No Longer Active Tesfaye Sherman MD Active SUDAFED 24 HOUR 240 MG ORAL TABLET EXTENDED RELEASE 24 HOUR 1 tab po daily PSEUDOEPHEDRINE HCL 67872095527 No Longer Active Rauleh Sherman MD Active RED YEAST RICE 600 MG ORAL CAPSULE 1 pill by mouth daily RED YEAST RICE EXTRACT 02860893887 No Longer Active Tesfaye Sherman MD Active REPHRESH PRO-B ORAL CAPSULE 1 tablet daily LACT OBACILLUS 04938556262 No Longer Active Tesfaye Sherman MD Active GABAPENTIN 300 MG ORAL CAPSULE 1-2 po daily GABAP ENTIN 59449734730 Active Tesfaye Sherman MD Active SUDAFED 12 HOUR 120 MG ORAL TABLET EXTENDED RELEASE 12 HOUR 1 pill twice daily if needed for congestion PSEUDOEPHEDRINE HCL 83148494934 A ctive Tesfaye Sherman MD Active ABILIFY 2 MG ORAL TABLET 1 by mouth daily. MARIA ELENA PIPRAZOLE 03847415234 Active Tesfaye Sherman MD Active CYMBALTA 60 MG ORAL CAPSULE DELAYED RELEASE PARTICLES 1 cap by mouth daily for pain DULOXETINE HCL 80722697801 Active Tesfaye Owuus Active DIFLUCAN 100 MG ORAL TABLET 1 tablet by mouth daily 20 20/06/06 FLUCONAZOLE 30610415156 No Longer Active Tesfaye Sherman MD Acti ve PREDNISONE 20 MG ORAL TABLET 1 tablet by mouth twice d aily for 3 days, then 1 tablet daily for 3 days PREDNISONE 83269063602 No L onger Active Tesfaye Sherman MD Active DIFLUCAN 100 MG ORAL TABLET 1 tablet by mouth daily FLUCONAZOLE 05812485131 Active Tesfaye Sherman MD Active BACTRIM DS 800-160 MG ORAL TABLET 1 tab by mouth twice daily 201 06/09/02 TRIMETHOPRIM-SULFAMETHOXAZOLE 74143174493 No Longer Active Fer Dominguez Active DIFLUCAN 100 MG ORAL TABLET 1 tablet by mouth daily 20 20/05/01 FLUCONAZOLE 19927329291 No Longer Active Tesfaye Sherman MD Acti ve ZITHROMAX 250 MG ORAL TABLET 2 po today, then 1 po q days 2-5 20 20/04/28 AZITHROMYCIN 48510143278 No Longer Active Tesfaye Sherman MD Active MECLIZINE HCL 25 MG ORAL TABLET one tab po qday prn dizziness 20 17/09/06 MECLIZINE HCL 30993799688 No Longer Active Tesfaye Sherman MD Active PROAIR HFA 108 (90 BASE) MCG/ACT INHALATION AEROSOL SO LUTION 1 puff every 6 hours as needed ALBUTEROL SULFATE 09084320211 No Long er Active Tesfaye Sherman MD Active PREDNISONE 20 MG ORAL TABLET 1 tab twice daily for 3 d ay, then one daily for three days PREDNISONE 40161366617 No Longer Active Tesfaye Sherman MD Active MECLIZINE HCL 25 MG ORAL TABLET one 4 times a day as needed for dizziness MECLIZINE HCL 77027040226 Active Tesfaye Sherman MD Active AMOXICILLIN 500 MG ORAL CAPSULE 1 cap by mouth three times a day AMOXICILLIN 16215991082 No Longer Active Laurence Dominguez Acti ve VENLAFAXINE HCL 75 MG ORAL TABLET 1 am 1/2 at noon VENLAFAXINE HCL 08217311552 Active Tesfaye Sherman MD Active DIFLUCAN 100 MG ORAL TABLET 1 tablet by mouth daily 20 19/08/26 FLUCONAZOLE 44078295522 No Longer Active Tesfaye Sherman MD Acti ve BACTRIM DS 800-160 MG ORAL TABLET 1 tab by mouth twice daily 201 05/10/28 TRIMETHOPRIM-SULFAMETHOXAZOLE 07362228580 No Longer Active Fer Dominguez Active FOSAMAX 70 MG ORAL TABLET 1 po qweek. Take 30min prio r to first food/drink. Avoid lying down x 1 hour. ALENDRONATE SODIUM 57809680 144 No Longer Active Laurence Dominguez Active CYMBALTA 60 MG ORAL CAPSULE DELAYED RELEASE PARTICLES Take 1 tablet by mouth daily DULOXETINE HCL 33051300725 No Longer Active Edith Burch MD Active CYMBALTA 30 MG ORAL CAPSULE DELAYED RELEASE PARTICLES 1 cap by mouth daily with 60mg DULOXETINE HCL 82601741240 No Longer Active Jordan Burch MD Active FISH OIL 1000 MG ORAL CAPSULE DELAYED RELEASE 1 pill b y mouth daily for cholesterol OMEGA-3 FATTY ACIDS 34886055214 Active Cee Jaffe LPN Active DIFLUCAN 100 MG ORAL TABLET 1 tablet by mouth daily 20 19/03/05 FLUCONAZOLE 85169227104 No Longer Active Tesfaye Sherman MD Acti ve BACTRIM DS 800-160 MG ORAL TABLET 1 tab by mouth twice daily 201 05/06/28 TRIMETHOPRIM-SULFAMETHOXAZOLE 16805423543 No Longer Active Umer Sherman MD Active BACTRIM DS 800-160 MG ORAL TABLET 1 tab by mouth twice daily 201 05/04/15 TRIMETHOPRIM-SULFAMETHOXAZOLE 65323461980 No Longer Active Umer Sherman MD Active DIFLUCAN 150 MG ORAL TABLET 1 tablet by mouth daily 20 18/09/20 FLUCONAZOLE 75438866120 No Longer Active Tesfaye Sherman MD Acti ve BACTRIM DS 800-160 MG ORAL TABLET 1 tab by mouth twice daily 201 04/13/17 TRIMETHOPRIM-SULFAMETHOXAZOLE 63582827505 No Longer Active Umer Sherman MD Active ROPINIROLE HCL 0.25 MG ORAL TABLET 1 TAB PO Q HS ROPINIROLE HCL 92128246325 Active Tesfaye Sherman MD Active CEFTIN 250 MG ORAL TABLET 1 tablet twice daily x 7 days CEFUROXIME AXETIL 69999783985 No Longer Active Tesfaye Sherman MD Active DIFLUCAN 100 MG ORAL TABLET 1 tablet by mouth every other da y for 2 doses FLUCONAZOLE 12225607877 No Longer Active Tesfaye barron MD Active DIFLUCAN 100 MG ORAL TABLET 1 tablet by mouth daily X 3 DAYS 201 04/09/01 FLUCONAZOLE 98620458342 No Longer Active Rj Moss DO Ac tive MIRTAZAPINE 15 MG ORAL TABLET 1/2 tab by mouth at bedtime. 03/13 MIRTAZAPINE 08207690016 No Longer Active Tesfaye Sherman MD Active BACTRIM DS 800-160 MG ORAL TABLET 1 tab by mouth twice daily 201 04/09/01 TRIMETHOPRIM-SULFAMETHOXAZOLE 11589061459 No Longer Active Umer Sherman MD Active PRAMIPEXOLE DIHYDROCHLORIDE 0.125 MG ORAL TABLET take 1 tablet po qhs for restless leg syndrome. PRAMIPEXOLE DIHYDROCHLORI DE 70287189549 No Longer Active Tesfaye Sherman MD Active MAGNESIUM 400 MG ORAL TABLET 1 tab po daily MAGNE SIUM 49984868470 Active Chelsea Cardenas APRN Active CETIRIZINE HCL 5 MG ORAL TABLET Take 1 tablet by mouth daily CETIRIZINE HCL 52759092690 No Longer Active Chelsea Cardenas APRN Activ e TRIMETHOPRIM 100 MG ORAL TABLET 1/2 qd TRIM ETHOPRIM 25266886303 No Longer Active Chelsea Cardenas APRN Active BACTRIM DS 800-160 MG ORAL TABLET 1 tab by mouth twice daily 201 04/04/11 TRIMETHOPRIM-SULFAMETHOXAZOLE 05276802001 No Longer Active Umer Sherman MD Active BACTRIM DS 800-160 MG ORAL TABLET 1 tab by mouth twice daily X 10 DAYS TRIMETHOPRIM-SULFAMETHOXAZOLE 77961871148 No Longer Active Tesfaye Sherman MD Active AMOXICILLIN 500 MG ORAL CAPSULE 1 cap by mouth three times a day AMOXICILLIN 71390742179 No Longer Active MARCUS Maravilla ctive B-12 1000 MCG ORAL LOZENGE 1 tab po daily CYANO COBALAMIN 15754616499 Active Tesfaye Sherman MD Active VITAMIN D3 2000 UNIT ORAL TABLET 1 daily, for vitamin D deficien cy CHOLECALCIFEROL 14975845568 No Longer Active Tesfaye Sherman MD Active TIZANIDINE HCL 2 MG ORAL TABLET take 1-2 tablet by mo uth every day at bedtime at 9pm PRN TIZANIDINE HCL 58927187731 Active Tesfaye hewitt MD Active ZITHROMAX 250 MG ORAL TABLET 2 po today, then 1 po q days 2-5 20 15/02/10 AZITHROMYCIN 49833233419 No Longer Active Tesfaye Sherman MD Active BACTRIM DS 800-160 MG ORAL TABLET 1 tab by mouth twice daily 201 03/03/23 TRIMETHOPRIM-SULFAMETHOXAZOLE 29235845924 No Longer Active Umer Sherman MD Active [facility] NIACIN FLUSH FREE 400-100 MG ORAL CAPSULE 1 daily NIACIN-INOSITOL 73394929125 Active Kayla Cooper MD Activ e DIFLUCAN 150 MG ORAL TABLET 1 qd FLUCONAZOL E 00128277253 No Longer Active Kayla Cooper MD Active FLUTICASONE PROPIONATE 50 MCG/ACT NASAL SUSPENSION 1 spray each nostril twice daily FLUTICASONE PROPIONATE 75693357935 Active D patricia Sherman MD Active LOVASTATIN 20 MG ORAL TABLET Take 1 tablet by mouth daily LOVASTATIN 09213850041 No Longer Active Tesfaye Sherman MD Acti ve MELOXICAM 7.5 MG ORAL TABLET 1 tablet by mouth daily 2 MELOXICAM 09374281362 No Longer Active Tesfaye Sherman MD Acti ve GABAPENTIN 300 MG ORAL CAPSULE Take two tablets by mouth every e vening GABAPENTIN 02824339865 No Longer Active Edith Burch MD A ctive BACLOFEN 10 MG ORAL TABLET Take one tablet by mouth three times a d ay BACLOFEN 75904249174 Active Kayla Cooper MD Active GABAPENTIN 300 MG ORAL CAPSULE Take two tablets by mouth every e vening GABAPENTIN 300 MG ORAL CAPSULE 656088 GABAPENTIN I nactive MELOXICAM 7.5 MG ORAL TABLET 1 tablet by mouth daily 2 MELOXICAM 7.5 MG ORAL TABLET 516452 MELOXICAM Inactive LOVASTATIN 20 MG ORAL TABLET Take 1 tablet by mouth daily LOVASTATIN 20 MG ORAL TABLET 986340 LOVASTATIN Inactive DIFLUCAN 150 MG ORAL TABLET 1 qd DIFLUCAN 150 MG ORAL TABLET 722873 FLUCONAZOLE Inactive VITAMIN D3 2000 UNIT ORAL TABLET 1 daily, for vitamin D deficien cy VITAMIN D3 2000 UNIT ORAL TABLET CHOLECALCIFEROL Inactive AMOXICILLIN 500 MG ORAL CAPSULE 1 cap by mouth three times a day AMOXICILLIN 500 MG ORAL CAPSULE 751034 AMOXICILLIN Inactive BACTRIM DS 800-160 MG ORAL TABLET 1 tab by mouth twice daily X 10 DAYS BACTRIM DS 800-160 MG ORAL TABLET 199594 TRIMETHOPRIM-SULFAMETHOXAZOLE Inactive TRIMETHOPRIM 100 MG ORAL TABLET 1/2 qd 7 TRIMETHOPRIM 100 MG ORAL TABLET 286089 TRIMETHOPRIM Inactive CETIRIZINE HCL 5 MG ORAL TABLET Take 1 tablet by mouth daily CETIRIZINE HCL 5 MG ORAL TABLET 3553792 CETIRIZINE HCL Inactive PRAMIPEXOLE DIHYDROCHLORIDE 0.125 MG ORAL TABLET take 1 tablet po qhs for restless leg syndrome. PRAMIPEXOLE DIHYD ROCHLORIDE 0.125 MG ORAL TABLET 854803 PRAMIPEXOLE DIHYDROCHLORIDE Inactive MIRTAZAPINE 15 MG ORAL TABLET 1/2 tab by mouth at bedtime. 03/13 MIRTAZAPINE 15 MG ORAL TABLET 612744 MIRTAZAPINE In active DIFLUCAN 100 MG ORAL TABLET 1 tablet by mouth daily X 3 DAYS 201 04/09/01 DIFLUCAN 100 MG ORAL TABLET 678897 FLUCONAZOLE Inac tive DIFLUCAN 100 MG ORAL TABLET 1 tablet by mouth every other da y for 2 doses DIFLUCAN 100 MG ORAL TABLET 772364 FLUCONAZOLE Inactive CEFTIN 250 MG ORAL TABLET 1 tablet twice daily x 7 days CEFTIN 250 MG ORAL TABLET CEFUROXIME AXETIL Inactive CYMBALTA 30 MG ORAL CAPSULE DELAYED RELEASE PARTICLES 1 cap by mouth daily with 60mg CYMBALTA 30 MG ORAL CAPSULE DELAYED RELEASE PARTICLES 207173 DULOXETINE HCL Inactive CYMBALTA 60 MG ORAL CAPSULE DELAYED RELEASE PARTICLES Take 1 tablet by mouth daily CYMBALTA 60 MG ORAL CAPSULE DELAYED RELEA SE PARTICLES 083668 DULOXETINE HCL Inactive FOSAMAX 70 MG ORAL TABLET 1 po qweek. Take 30min prio r to first food/drink. Avoid lying down x 1 hour. FOSAMAX 70 MG ORAL TA BLET 487854 ALENDRONATE SODIUM Inactive DIFLUCAN 100 MG ORAL TABLET 1 tablet by mouth daily 19/08/26 DIFLUCAN 100 MG ORAL TABLET 339775 FLUCONAZOLE Inactive PREDNISONE 20 MG ORAL TABLET 1 tab twice daily for 3 d ay, then one daily for three days PREDNISONE 20 MG ORAL TABLET 185265 PREDNIS ONE Inactive PROAIR HFA 108 (90 BASE) MCG/ACT INHALATION AEROSOL SO LUTION 1 puff every 6 hours as needed PROAIR HFA 108 (90 B ASE) MCG/ACT INHALATION AEROSOL SOLUTION ALBUTEROL SULFATE Inactive MECLIZINE HCL 25 MG ORAL TABLET one tab po qday prn dizziness 20 17/09/06 MECLIZINE HCL 25 MG ORAL TABLET 211305 MECLIZINE HCL Inactive PREDNISONE 20 MG ORAL TABLET 1 tablet by mouth twice d aily for 3 days, then 1 tablet daily for 3 days PREDNISONE 20 MG ORAL TA BLET 318138 PREDNISONE Inactive DIFLUCAN 100 MG ORAL TABLET 1 tablet by mouth daily 20/06/06 DIFLUCAN 100 MG ORAL TABLET 370231 FLUCONAZOLE Inactive REPHRESH PRO-B ORAL CAPSULE 1 tablet daily REPHRESH PRO-B ORAL CAPSULE LACTOBACILLUS Inactive RED YEAST RICE 600 MG ORAL CAPSULE 1 pill by mouth daily RED YEAST RICE 600 MG ORAL CAPSULE 614192 RED YEAST RICE EXTRACT In active SUDAFED [...] 20 15/02/10 ZITHROMAX 250 MG ORAL TABLET 853666 AZITHROMYCIN [facility]con ctive BACTRIM DS 800-160 MG ORAL TABLET [...] a day AMOXICILLIN 500 MG ORAL CAPSULE 206902 AMOXICILLIN Inactive ZITHROMAX 250 MG ORAL TABLET 2 po today, then 1 po q days 2-5 20 20/04/28 ZITHROMAX 250 MG ORAL TABLET 665995 AZITHROMYCIN Ucon ctive DIFLUCAN 100 MG ORAL TABLET 1 tablet by mouth daily 20 20/05/01 DIFLUCAN 100 MG ORAL TABLET 606897 FLUCONAZOLE Inactive BACTRIM DS 800-160 MG ORAL TABLET 1 tab by mouth twice daily 201 06/09/02 BACTRIM DS 800-160 MG ORAL TABLET 468859 TRIMETHOPRIM-SULFAMETHOXAZOLE Inactive Advance Directives Directive Description Start Date PERMISSION TO SHARE DISCUSSED WITH PATIENT -- NO DECISION MADE DURABLE POWER OF BID CLERK FOR HEALTHCARE DISCUSED WITH PATIENT -- [...] dipstick Trace-lysed Negative sodium, serum 139 mmol/L 207-519 5583/11/07 carbon dioxide, venous blood 28.4 mmol/L 21.0-32 [...] 5.0-8.5 Encounters Code Encounter Date Provider Facility CPT-77879 [id number] Vst-Est Level IV 14:00:[address] Tesfaye Sherman MD [facility] CPT-35776 [id number] Vst-Est Level IV 19:27:[address] Tesfaye Sherman MD [facility] CPT-11420 [id number] Vst-Est Level IV 10:41:41 C BRIDGET Sherman MD [facility] CPT-93715 [id number] Vst-Est Level III 09:40:56 CDT Tesfaye Sherman MD [facility] CPT-90917 Level 4 Est. Patient 22:18:12 CDT Tesfaye pearson MD [facility] CPT-85426 Level 4 Est. Patient 14:44:33 FOOD ASSEMBLER Tesfaye pearson MD [facility] CPT-45818 Level 4 Est. Patient 13:55:29 FOOD ASSEMBLER Tesfaye pearson MD [facility] CPT-98007 Level 4 Est. Patient 17:07:34 FOOD ASSEMBLER Tesfaye pearson MD [facility] CPT-17788 Level 4 Est. Patient 13:56:54 CDT Tesfaye pearson MD [facility] CPT-13553 Level 4 Est. Patient 13:24:25 CDT Chelsea sanz APRN [facility] CPT-78216 Level 4 Est. Patient 09:14:56 CDT Tesfaye pearson MD [facility]-32268 Level 4 Est. Patient 18:40:25 FOOD ASSEMBLER Tesfaye pearson MD [facility]-49116 Level 4 Est. Patient 18:13:07 FOOD ASSEMBLER Tesfaye pearson MD [facility]-17984 Level 3 Est. Patient 10:46:32 CDT Rj cotto DO [facility] CPT-44470 Level 4 Est. Patient 20:19:25 CDT Tesfaye pearson MD [facility] CPT-93906 Level 3 Est. Patient 09:07:31 CDT Tesfaye pearson MD [facility]-88123 Level 4 Est. Patient 13:12:56 CDT Tesfaye pearson MD [facility]-62609 Level 4 Est. Patient 21:24:55 FOOD ASSEMBLER Tesfaye pearson MD [facility]-44728 Level 3 Est. Patient 13:45:04 FOOD ASSEMBLER Tesfaye pearson MD [facility] CPT-81618 Level 4 Est. Patient 13:50:45 CDT Tesfaye pearson MD [facility] CPT-45998 Level 3 Est. Patient 10:16:10 CDT Tesfaye pearson MD [facility] CPT-13932 Level 3 Est. Patient 16:36:07 FOOD ASSEMBLER Kayla jameson MD [facility] CPT-90731 Level 4 Est. Patient 16:00:14 FOOD ASSEMBLER Tesfaye pearson MD [facility] CPT-58310 Level 4 Est. Patient 11:02:24 FOOD ASSEMBLER Tesfaye pearson MD [facility] CPT-25152 Level 3 Est. Patient 20:21:43 FOOD ASSEMBLER Kayla jameson MD [facility] CPT-56068 Level 3 Est. Patient 13:27:28 FOOD ASSEMBLER Kayla jameson MD [facility] CPT-15133 Level 4 Est. Patient 15:57:17 FOOD ASSEMBLER Tesfaye pearson MD [facility] CPT-49117 Level 3 New Patient 13:25:47 CDT Tesfaye kidd MD [facility] CPT-93038 Level 3 New Patient 17:22:21 CDT Kayla angel MD [facility] Procedures Code Procedure Name Date Entry Date Standard Desc ription CPT-G0439 Subsequent Annual Wellness Exam 22:18:11 CDT CPT-80224 Bone Density - XRAY USE ONLY 11:43:58 CDT 2 CPT-90469 Bone Density - XRAY USE ONLY 10:05:16 CDT 2 CPT-41568 Prv Med New Pt 40-64 yrs 18:19:25 CDT 2016 CPT-37378 Foot, right, comp min 3V - XRAY USE ONLY 10:38:34 CDT CPT-G0439 Subsequent Annual Wellness Exam 13:55:04 CDT CPT-G0438 Initial Annual Wellness Exam 11:23:17 CD T CPT-J2930 Solu Medrol 125 mg (Methyl Prednisolone Sodium Succinate) 17:29:12 FOOD ASSEMBLER CPT-28246 Abx/Therapy Injection 17:29:11 FOOD ASSEMBLER CPT-J2930 Solu Medrol 125 mg (Methyl Prednisolone Sodium Succinate) 12:34:38 FOOD ASSEMBLER CPT-J3420 Vitamin B12 1000mcg (Cyanocobalamin) 09:12:55 CDT CPT-J3420 Vitamin B12 1000mcg (Cyanocobalamin) 16:28:06 FOOD ASSEMBLER CPT-49464 Venipuncture Draw Fee 08:39:53 CDT CPT-J3420 Vitamin B12 1000mcg (Cyanocobalamin) 08:46:22 CDT CPT-89923 Abx/Therapy Injection 08:46:22 CDT CPT-J3420 Vitamin B12 1000mcg (Cyanocobalamin) 08:41:26 CDT CPT-32974 Abx/Therapy Injection 08:41:26 CDT CPT-J3420 Vitamin B12 1000mcg (Cyanocobalamin) 08:57:15 CDT CPT-67326 Abx/Therapy Injection 08:57:15 CDT CPT-J3420 Vitamin B12 1000mcg (Cyanocobalamin) 10:59:03 CDT CPT-18996 Abx/Therapy Injection 10:59:03 CDT CPT-J3420 Vitamin B12 1000mcg (Cyanocobalamin) 15:05:39 CDT CPT-54132 Abx/Therapy Injection 15:05:39 CDT CPT-J3420 Vitamin B12 1000mcg (Cyanocobalamin) 13:50:45 CDT CPT-J3420 Vitamin B12 1000mcg (Cyanocobalamin) 08:48:55 CDT CPT-86136 Abx/Therapy Injection 08:48:55 CDT CPT-J3420 Vitamin B12 1000mcg (Cyanocobalamin) 09:14:54 CDT CPT-39765 Abx/Therapy Injection 09:14:54 CDT CPT-J3420 Vitamin B12 1000mcg (Cyanocobalamin) 09:06:06 CDT CPT-53660 Abx/Therapy Injection 09:06:06 CDT CPT-J3420 Vitamin B12 1000mcg (Cyanocobalamin) 09:49:14 CDT CPT-66271 Abx/Therapy Injection 09:49:14 CDT CPT-J3420 Vitamin B12 1000mcg (Cyanocobalamin) 09:10:30 FOOD ASSEMBLER CPT-59025 Abx/Therapy Injection 09:10:30 FOOD ASSEMBLER CPT-J3420 Vitamin B12 1000mcg (Cyanocobalamin) 09:11:07 FOOD ASSEMBLER CPT-64622 Abx/Therapy Injection 09:11:07 FOOD ASSEMBLER CPT-J3420 Vitamin B12 1000mcg (Cyanocobalamin) 09:57:03 FOOD ASSEMBLER CPT-45604 Abx/Therapy Injection 09:57:03 FOOD ASSEMBLER CPT-J3420 Vitamin B12 1000mcg (Cyanocobalamin) 09:23:21 FOOD ASSEMBLER CPT-26365 Abx/Therapy Injection 09:23:21 FOOD ASSEMBLER CPT-85089 Urine Dip (Floor Use Only) 20:21:44 FOOD ASSEMBLER 201 02/12/11 CPT-15322 UA Dip Auto (Floor Use Only) 10:04:39 FOOD ASSEMBLER 2 CPT-69281 Urine Dip (Floor Use Only) 13:27:28 FOOD ASSEMBLER 201 02/12/01 CPT-86036 Bladder Scan 13:27:28 FOOD ASSEMBLER CPT-12300 Abd single AP View 14:30:51 FOOD ASSEMBLER CPT-OV Office Visit 10:15:43 CDT CPT-58831 Urine Dip (Floor Use Only) 17:22:21 CDT 201 02/09/02 CPT-44445 Bladder Scan 17:22:21 CDT
--- OUTSIDE RECORDS SUMMARY | 2020-05-05 11:40 | XMS REPORT | Clinical Summary ---
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 Use sparingly OXYCODONE-ACETAMINOPHEN 75954061085 Active Tesfaye villar MD Active CLONAZEPAM 0.5 MG ORAL TABLET Take 1/2 qam, and 1/2 qpm CLONAZEPAM 42023331784 Active Tesfaye Sherman MD Active PRELIEF 340 (65-50) MG (CA-P) ORAL TABLET CALCIUM GLYCEROPHOSPHATE 01673658659 No Longer Active Tesfaye Sherman MD Active SUDAFED 24 HOUR 240 MG ORAL TABLET EXTENDED RELEASE 24 HOUR 1 tab po daily PSEUDOEPHEDRINE HCL 62613296491 No Longer Active Rauleh Sherman MD Active RED YEAST RICE 600 MG ORAL CAPSULE 1 pill by mouth daily RED YEAST RICE EXTRACT 36827041281 No Longer Active Tesfaye Sherman MD Active REPHRESH PRO-B ORAL CAPSULE 1 tablet daily LACT OBACILLUS 21894408660 No Longer Active Tesfaye Sherman MD Active GABAPENTIN 300 MG ORAL CAPSULE 1-2 po daily GABAP ENTIN 37991427780 Active Tesfaye Sherman MD Active SUDAFED 12 HOUR 120 MG ORAL TABLET EXTENDED RELEASE 12 HOUR 1 pill twice daily if needed for congestion PSEUDOEPHEDRINE HCL 59576143793 A ctive Tesfaye Sherman MD Active ABILIFY 2 MG ORAL TABLET 1 by mouth daily. MARIA ELENA PIPRAZOLE 06049865733 Active Tesfaye Sherman MD Active CYMBALTA 60 MG ORAL CAPSULE DELAYED RELEASE PARTICLES 1 cap by mouth daily for pain DULOXETINE HCL 55466424989 Active Tesfaye Owusu Active DIFLUCAN 100 MG ORAL TABLET 1 tablet by mouth daily 20 20/06/06 FLUCONAZOLE 34701194578 No Longer Active Tesfaye Sherman MD Acti ve PREDNISONE 20 MG ORAL TABLET 1 tablet by mouth twice d aily for 3 days, then 1 tablet daily for 3 days PREDNISONE 75628977942 No L onger Active Tesfaye Sherman MD Active DIFLUCAN 100 MG ORAL TABLET 1 tablet by mouth daily FLUCONAZOLE 05280700973 Active Tesfaye Sherman MD Active BACTRIM DS 800-160 MG ORAL TABLET 1 tab by mouth twice daily 201 06/09/02 TRIMETHOPRIM-SULFAMETHOXAZOLE 43924587683 No Longer Active Fer Dominguez Active DIFLUCAN 100 MG ORAL TABLET 1 tablet by mouth daily 20 20/05/01 FLUCONAZOLE 29591054145 No Longer Active Tesfaye Sherman MD Acti ve ZITHROMAX 250 MG ORAL TABLET 2 po today, then 1 po q days 2-5 20 20/04/28 AZITHROMYCIN 40120798676 No Longer Active Tesfaye Sherman MD Active MECLIZINE HCL 25 MG ORAL TABLET one tab po qday prn dizziness 20 17/09/06 MECLIZINE HCL 83612860187 No Longer Active Tesfaye Sherman MD Active PROAIR HFA 108 (90 BASE) MCG/ACT INHALATION AEROSOL SO LUTION 1 puff every 6 hours as needed ALBUTEROL SULFATE 16986441172 No Long er Active Tesfaye Sherman MD Active PREDNISONE 20 MG ORAL TABLET 1 tab twice daily for 3 d ay, then one daily for three days PREDNISONE 71609973728 No Longer Active Tesfaye Sherman MD Active MECLIZINE HCL 25 MG ORAL TABLET one 4 times a day as needed for dizziness MECLIZINE HCL 19875136037 Active Tesfaye Sherman MD Active AMOXICILLIN 500 MG ORAL CAPSULE 1 cap by mouth three times a day AMOXICILLIN 05150768008 No Longer Active Laurence Dominguez Acti ve VENLAFAXINE HCL 75 MG ORAL TABLET 1 am 1/2 at noon VENLAFAXINE HCL 77977614147 Active Tesfaye Sherman MD Active DIFLUCAN 100 MG ORAL TABLET 1 tablet by mouth daily 20 19/08/26 FLUCONAZOLE 93759417861 No Longer Active Tesfaye Sherman MD Acti ve BACTRIM DS 800-160 MG ORAL TABLET 1 tab by mouth twice daily 201 05/10/28 TRIMETHOPRIM-SULFAMETHOXAZOLE 94915073692 No Longer Active Fer Dominguez Active FOSAMAX 70 MG ORAL TABLET 1 po qweek. Take 30min prio r to first food/drink. Avoid lying down x 1 hour. ALENDRONATE SODIUM 13940485 144 No Longer Active Laurence Dominguez Active CYMBALTA 60 MG ORAL CAPSULE DELAYED RELEASE PARTICLES Take 1 tablet by mouth daily DULOXETINE HCL 78289992056 No Longer Active Edith Burch MD Active CYMBALTA 30 MG ORAL CAPSULE DELAYED RELEASE PARTICLES 1 cap by mouth daily with 60mg DULOXETINE HCL 88565483404 No Longer Active Jordan Burch MD Active FISH OIL 1000 MG ORAL CAPSULE DELAYED RELEASE 1 pill b y mouth daily for cholesterol OMEGA-3 FATTY ACIDS 36019579561 Active Cee Jaffe LPN Active DIFLUCAN 100 MG ORAL TABLET 1 tablet by mouth daily 20 19/03/05 FLUCONAZOLE 35131679940 No Longer Active Tesfaye Sherman MD Acti ve BACTRIM DS 800-160 MG ORAL TABLET 1 tab by mouth twice daily 201 05/06/28 TRIMETHOPRIM-SULFAMETHOXAZOLE 27559086769 No Longer Active Umer Sherman MD Active BACTRIM DS 800-160 MG ORAL TABLET 1 tab by mouth twice daily 201 05/04/15 TRIMETHOPRIM-SULFAMETHOXAZOLE 98339069528 No Longer Active Umer Sherman MD Active DIFLUCAN 150 MG ORAL TABLET 1 tablet by mouth daily 20 18/09/20 FLUCONAZOLE 14642512430 No Longer Active Tesfaye Sherman MD Acti ve BACTRIM DS 800-160 MG ORAL TABLET 1 tab by mouth twice daily 201 04/13/17 TRIMETHOPRIM-SULFAMETHOXAZOLE 90735343287 No Longer Active Umer Sherman MD Active ROPINIROLE HCL 0.25 MG ORAL TABLET 1 TAB PO Q HS ROPINIROLE HCL 68590725952 Active Tesfaye Sherman MD Active CEFTIN 250 MG ORAL TABLET 1 tablet twice daily x 7 days CEFUROXIME AXETIL 16573159529 No Longer Active Tesfaye Sherman MD Active DIFLUCAN 100 MG ORAL TABLET 1 tablet by mouth every other da y for 2 doses FLUCONAZOLE 14776859939 No Longer Active Tesfaye barron MD Active DIFLUCAN 100 MG ORAL TABLET 1 tablet by mouth daily X 3 DAYS 201 04/09/01 FLUCONAZOLE 45111890820 No Longer Active Rj Moss DO Ac tive MIRTAZAPINE 15 MG ORAL TABLET 1/2 tab by mouth at bedtime. 03/13 MIRTAZAPINE 74172291212 No Longer Active Tesfaye Sherman MD Active BACTRIM DS 800-160 MG ORAL TABLET 1 tab by mouth twice daily 201 04/09/01 TRIMETHOPRIM-SULFAMETHOXAZOLE 37116847379 No Longer Active Umer Sherman MD Active PRAMIPEXOLE DIHYDROCHLORIDE 0.125 MG ORAL TABLET take 1 tablet po qhs for restless leg syndrome. PRAMIPEXOLE DIHYDROCHLORI DE 06921650651 No Longer Active Tesfaye Sherman MD Active MAGNESIUM 400 MG ORAL TABLET 1 tab po daily MAGNE SIUM 03511593049 Active Chelsea Cardenas APRN Active CETIRIZINE HCL 5 MG ORAL TABLET Take 1 tablet by mouth daily CETIRIZINE HCL 23827365734 No Longer Active Chelsea Cardenas APRN Activ e TRIMETHOPRIM 100 MG ORAL TABLET 1/2 qd TRIM ETHOPRIM 93630318790 No Longer Active Chelsea Cardenas APRN Active BACTRIM DS 800-160 MG ORAL TABLET 1 tab by mouth twice daily 201 04/04/11 TRIMETHOPRIM-SULFAMETHOXAZOLE 04420342482 No Longer Active Umer Sherman MD Active BACTRIM DS 800-160 MG ORAL TABLET 1 tab by mouth twice daily X 10 DAYS TRIMETHOPRIM-SULFAMETHOXAZOLE 31688658058 No Longer Active Tesfaye Sherman MD Active AMOXICILLIN 500 MG ORAL CAPSULE 1 cap by mouth three times a day AMOXICILLIN 23174764997 No Longer Active MARCUS Maravilla ctive B-12 1000 MCG ORAL LOZENGE 1 tab po daily CYANO COBALAMIN 55624859784 Active Tesfaye Sherman MD Active VITAMIN D3 2000 UNIT ORAL TABLET 1 daily, for vitamin D deficien cy CHOLECALCIFEROL 82541239117 No Longer Active Tesfaye Sherman MD Active TIZANIDINE HCL 2 MG ORAL TABLET take 1-2 tablet by mo uth every day at bedtime at 9pm PRN TIZANIDINE HCL 12448767006 Active Tesfaye hewitt MD Active ZITHROMAX 250 MG ORAL TABLET 2 po today, then 1 po q days 2-5 20 15/02/10 AZITHROMYCIN 13654081929 No Longer Active Tesfaye Sherman MD Active BACTRIM DS 800-160 MG ORAL TABLET 1 tab by mouth twice daily 201 03/03/23 TRIMETHOPRIM-SULFAMETHOXAZOLE 15214116644 No Longer Active Umer Sherman MD Active [facility] NIACIN FLUSH FREE 400-100 MG ORAL CAPSULE 1 daily NIACIN-INOSITOL 54645553078 Active Kayla Cooper MD Activ e DIFLUCAN 150 MG ORAL TABLET 1 qd FLUCONAZOL E 53635928586 No Longer Active Kayla Cooper MD Active FLUTICASONE PROPIONATE 50 MCG/ACT NASAL SUSPENSION 1 spray each nostril twice daily FLUTICASONE PROPIONATE 66206417175 Active D patricia Sherman MD Active LOVASTATIN 20 MG ORAL TABLET Take 1 tablet by mouth daily LOVASTATIN 27368969624 No Longer Active Tesfaye Sherman MD Acti ve MELOXICAM 7.5 MG ORAL TABLET 1 tablet by mouth daily 2 MELOXICAM 75594612117 No Longer Active Tesfaye Sherman MD Acti ve GABAPENTIN 300 MG ORAL CAPSULE Take two tablets by mouth every e vening GABAPENTIN 86596832499 No Longer Active Edith Burch MD A ctive BACLOFEN 10 MG ORAL TABLET Take one tablet by mouth three times a d ay BACLOFEN 40503942387 Active Kayla Cooper MD Active GABAPENTIN 300 MG ORAL CAPSULE Take two tablets by mouth every e vening GABAPENTIN 300 MG ORAL CAPSULE 364441 GABAPENTIN I nactive MELOXICAM 7.5 MG ORAL TABLET 1 tablet by mouth daily 2 MELOXICAM 7.5 MG ORAL TABLET 510259 MELOXICAM Inactive LOVASTATIN 20 MG ORAL TABLET Take 1 tablet by mouth daily LOVASTATIN 20 MG ORAL TABLET 833809 LOVASTATIN Inactive DIFLUCAN 150 MG ORAL TABLET 1 qd DIFLUCAN 150 MG ORAL TABLET 533150 FLUCONAZOLE Inactive VITAMIN D3 2000 UNIT ORAL TABLET 1 daily, for vitamin D deficien cy VITAMIN D3 2000 UNIT ORAL TABLET CHOLECALCIFEROL Inactive AMOXICILLIN 500 MG ORAL CAPSULE 1 cap by mouth three times a day AMOXICILLIN 500 MG ORAL CAPSULE 678126 AMOXICILLIN Inactive BACTRIM DS 800-160 MG ORAL TABLET 1 tab by mouth twice daily X 10 DAYS BACTRIM DS 800-160 MG ORAL TABLET 579391 TRIMETHOPRIM-SULFAMETHOXAZOLE Inactive TRIMETHOPRIM 100 MG ORAL TABLET 1/2 qd 7 TRIMETHOPRIM 100 MG ORAL TABLET 705013 TRIMETHOPRIM Inactive CETIRIZINE HCL 5 MG ORAL TABLET Take 1 tablet by mouth daily CETIRIZINE HCL 5 MG ORAL TABLET 8401699 CETIRIZINE HCL Inactive PRAMIPEXOLE DIHYDROCHLORIDE 0.125 MG ORAL TABLET take 1 tablet po qhs for restless leg syndrome. PRAMIPEXOLE DIHYD ROCHLORIDE 0.125 MG ORAL TABLET 643688 PRAMIPEXOLE DIHYDROCHLORIDE Inactive MIRTAZAPINE 15 MG ORAL TABLET 1/2 tab by mouth at bedtime. 03/13 MIRTAZAPINE 15 MG ORAL TABLET 813180 MIRTAZAPINE In active DIFLUCAN 100 MG ORAL TABLET 1 tablet by mouth daily X 3 DAYS 201 04/09/01 DIFLUCAN 100 MG ORAL TABLET 814893 FLUCONAZOLE Inac tive DIFLUCAN 100 MG ORAL TABLET 1 tablet by mouth every other da y for 2 doses DIFLUCAN 100 MG ORAL TABLET 353847 FLUCONAZOLE Inactive CEFTIN 250 MG ORAL TABLET 1 tablet twice daily x 7 days CEFTIN 250 MG ORAL TABLET CEFUROXIME AXETIL Inactive CYMBALTA 30 MG ORAL CAPSULE DELAYED RELEASE PARTICLES 1 cap by mouth daily with 60mg CYMBALTA 30 MG ORAL CAPSULE DELAYED RELEASE PARTICLES 399622 DULOXETINE HCL Inactive CYMBALTA 60 MG ORAL CAPSULE DELAYED RELEASE PARTICLES Take 1 tablet by mouth daily CYMBALTA 60 MG ORAL CAPSULE DELAYED RELEA SE PARTICLES 452115 DULOXETINE HCL Inactive FOSAMAX 70 MG ORAL TABLET 1 po qweek. Take 30min prio r to first food/drink. Avoid lying down x 1 hour. FOSAMAX 70 MG ORAL TA BLET 894952 ALENDRONATE SODIUM Inactive DIFLUCAN 100 MG ORAL TABLET 1 tablet by mouth daily 19/08/26 DIFLUCAN 100 MG ORAL TABLET 384856 FLUCONAZOLE Inactive PREDNISONE 20 MG ORAL TABLET 1 tab twice daily for 3 d ay, then one daily for three days PREDNISONE 20 MG ORAL TABLET 072069 PREDNIS ONE Inactive PROAIR HFA 108 (90 BASE) MCG/ACT INHALATION AEROSOL SO LUTION 1 puff every 6 hours as needed PROAIR HFA 108 (90 B ASE) MCG/ACT INHALATION AEROSOL SOLUTION ALBUTEROL SULFATE Inactive MECLIZINE HCL 25 MG ORAL TABLET one tab po qday prn dizziness 20 17/09/06 MECLIZINE HCL 25 MG ORAL TABLET 999167 MECLIZINE HCL Inactive PREDNISONE 20 MG ORAL TABLET 1 tablet by mouth twice d aily for 3 days, then 1 tablet daily for 3 days PREDNISONE 20 MG ORAL TA BLET 657492 PREDNISONE Inactive DIFLUCAN 100 MG ORAL TABLET 1 tablet by mouth daily 20/06/06 DIFLUCAN 100 MG ORAL TABLET 135144 FLUCONAZOLE Inactive REPHRESH PRO-B ORAL CAPSULE 1 tablet daily REPHRESH PRO-B ORAL CAPSULE LACTOBACILLUS Inactive RED YEAST RICE 600 MG ORAL CAPSULE 1 pill by mouth daily RED YEAST RICE 600 MG ORAL CAPSULE 290407 RED YEAST RICE EXTRACT In active SUDAFED [...] 20 15/02/10 ZITHROMAX 250 MG ORAL TABLET 219806 AZITHROMYCIN Mayela ctive BACTRIM DS 800-160 MG [...] a day AMOXICILLIN 500 MG ORAL CAPSULE 128840 AMOXICILLIN Inactive ZITHROMAX 250 MG ORAL TABLET 2 po today, then 1 po q days 2-5 20 20/04/28 ZITHROMAX 250 MG ORAL TABLET 883179 AZITHROMYCIN Mayela ctive DIFLUCAN 100 MG ORAL TABLET 1 tablet by mouth daily 20 20/05/01 DIFLUCAN 100 MG ORAL TABLET 424296 FLUCONAZOLE Inactive BACTRIM DS 800-160 MG ORAL TABLET 1 tab by mouth twice daily 201 06/09/02 BACTRIM DS 800-160 MG ORAL TABLET 909811 TRIMETHOPRIM-SULFAMETHOXAZOLE Inactive Advance Directives Directive Description Start Date PERMISSION TO SHARE DISCUSSED WITH PATIENT -- NO DECISION MADE 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 DISCUSED WITH PATIENT -- FULL [...] dipstick Trace-lysed Negative sodium, serum 139 mmol/L 910-586 5017/11/07 carbon dioxide, venous blood 28.4 mmol/L 21.0-32 [...] 5.0-8.5 Encounters Code Encounter Date Provider Facility CPT-50780 [id number] Vst-Est Level IV 14:00:[address] Tesfaye Sherman MD [facility] CPT-28616 [id number] Vst-Est Level IV 19:27:[address] Tesfaye Sherman MD [facility] CPT-43974 85503-Gol Vst-Est Level IV 10:41:41 C BRIDGET Sherman MD [facility] CPT-17180 [id number] Vst-Est Level III 09:40:56 CDT Tesfaye Sherman MD [facility] CPT-18960 Level 4 Est. Patient 22:18:12 CDT Tesfaye pearson MD [facility] CPT-19789 Level 4 Est. Patient 14:44:33 DRUM SAW OPERATOR Tesfaye pearson MD [facility] CPT-05697 Level 4 Est. Patient 13:55:29 DRUM SAW OPERATOR Tesfaye pearson MD [facility] CPT-83971 Level 4 Est. Patient 17:07:34 DRUM SAW OPERATOR Tesfaye pearson MD [facility] CPT-60077 Level 4 Est. Patient 13:56:54 CDT Tesfaye pearson MD [facility] CPT-58961 Level 4 Est. Patient 13:24:25 CDT Chelsea sanz APRN [facility] CPT-25899 Level 4 Est. Patient 09:14:56 CDT Tesfaye pearson MD [facility]-09780 Level 4 Est. Patient 18:40:25 DRUM SAW OPERATOR Tesfaye pearson MD [facility]-43547 Level 4 Est. Patient 18:13:07 DRUM SAW OPERATOR Tesfaye pearson MD [facility]-29688 Level 3 Est. Patient 10:46:32 CDT Rj cotto DO [facility] CPT-46547 Level 4 Est. Patient 20:19:25 CDT Tesfaye pearson MD [facility] CPT-03521 Level 3 Est. Patient 09:07:31 CDT Tesfaye pearson MD [facility]-83677 Level 4 Est. Patient 13:12:56 CDT Tesfaye pearson MD [facility]-87092 Level 4 Est. Patient 21:24:55 DRUM SAW OPERATOR Tesfaye pearson MD [facility]-51808 Level 3 Est. Patient 13:45:04 DRUM SAW OPERATOR Tesfaye pearson MD [facility] CPT-16472 Level 4 Est. Patient 13:50:45 CDT Tesfaye pearson MD [facility] CPT-62528 Level 3 Est. Patient 10:16:10 CDT Tesfaye pearson MD [facility] CPT-55804 Level 3 Est. Patient 16:36:07 DRUM SAW OPERATOR Kayla jameson MD [facility] CPT-07059 Level 4 Est. Patient 16:00:14 DRUM SAW OPERATOR Tesfaye pearson MD [facility] CPT-00015 Level 4 Est. Patient 11:02:24 DRUM SAW OPERATOR Tesfaye pearson MD [facility] CPT-41001 Level 3 Est. Patient 20:21:43 DRUM SAW OPERATOR Kayla jameson MD [facility] CPT-33961 Level 3 Est. Patient 13:27:28 DRUM SAW OPERATOR Kayla jameson MD [facility] CPT-86388 Level 4 Est. Patient 15:57:17 DRUM SAW OPERATOR Tesfaye pearson MD [facility] CPT-31823 Level 3 New Patient 13:25:47 CDT Tesfaye kidd MD [facility] CPT-83641 Level 3 New Patient 17:22:21 CDT Kayla angel MD [facility] Procedures Code Procedure Name Date Entry Date Standard Desc ription CPT-G0439 Subsequent Annual Wellness Exam 22:18:11 CDT CPT-15686 Bone Density - XRAY USE ONLY 11:43:58 CDT 2 CPT-49756 Bone Density - XRAY USE ONLY 10:05:16 CDT 2 CPT-49998 Prv Med New Pt 40-64 yrs 18:19:25 CDT 2016 CPT-04281 Foot, right, comp min 3V - XRAY USE ONLY 10:38:34 CDT CPT-G0439 Subsequent Annual Wellness Exam 13:55:04 CDT CPT-G0438 Initial Annual Wellness Exam 11:23:17 CD T CPT-J2930 Solu Medrol 125 mg (Methyl Prednisolone Sodium Succinate) 17:29:12 DRUM SAW OPERATOR CPT-47909 Abx/Therapy Injection 17:29:11 DRUM SAW OPERATOR CPT-J2930 Solu Medrol 125 mg (Methyl Prednisolone Sodium Succinate) 12:34:38 DRUM SAW OPERATOR CPT-J3420 Vitamin B12 1000mcg (Cyanocobalamin) 09:12:55 CDT CPT-J3420 Vitamin B12 1000mcg (Cyanocobalamin) 16:28:06 DRUM SAW OPERATOR CPT-56254 Venipuncture Draw Fee 08:39:53 CDT CPT-J3420 Vitamin B12 1000mcg (Cyanocobalamin) 08:46:22 CDT CPT-49354 Abx/Therapy Injection 08:46:22 CDT CPT-J3420 Vitamin B12 1000mcg (Cyanocobalamin) 08:41:26 CDT CPT-61230 Abx/Therapy Injection 08:41:26 CDT CPT-J3420 Vitamin B12 1000mcg (Cyanocobalamin) 08:57:15 CDT CPT-54439 Abx/Therapy Injection 08:57:15 CDT CPT-J3420 Vitamin B12 1000mcg (Cyanocobalamin) 10:59:03 CDT CPT-36832 Abx/Therapy Injection 10:59:03 CDT CPT-J3420 Vitamin B12 1000mcg (Cyanocobalamin) 15:05:39 CDT CPT-82728 Abx/Therapy Injection 15:05:39 CDT CPT-J3420 Vitamin B12 1000mcg (Cyanocobalamin) 13:50:45 CDT CPT-J3420 Vitamin B12 1000mcg (Cyanocobalamin) 08:48:55 CDT CPT-33977 Abx/Therapy Injection 08:48:55 CDT CPT-J3420 Vitamin B12 1000mcg (Cyanocobalamin) 09:14:54 CDT CPT-71756 Abx/Therapy Injection 09:14:54 CDT CPT-J3420 Vitamin B12 1000mcg (Cyanocobalamin) 09:06:06 CDT CPT-23821 Abx/Therapy Injection 09:06:06 CDT CPT-J3420 Vitamin B12 1000mcg (Cyanocobalamin) 09:49:14 CDT CPT-29364 Abx/Therapy Injection 09:49:14 CDT CPT-J3420 Vitamin B12 1000mcg (Cyanocobalamin) 09:10:30 DRUM SAW OPERATOR CPT-25126 Abx/Therapy Injection 09:10:30 DRUM SAW OPERATOR CPT-J3420 Vitamin B12 1000mcg (Cyanocobalamin) 09:11:07 DRUM SAW OPERATOR CPT-15176 Abx/Therapy Injection 09:11:07 DRUM SAW OPERATOR CPT-J3420 Vitamin B12 1000mcg (Cyanocobalamin) 09:57:03 DRUM SAW OPERATOR CPT-98369 Abx/Therapy Injection 09:57:03 DRUM SAW OPERATOR CPT-J3420 Vitamin B12 1000mcg (Cyanocobalamin) 09:23:21 DRUM SAW OPERATOR CPT-33676 Abx/Therapy Injection 09:23:21 DRUM SAW OPERATOR CPT-63853 Urine Dip (Floor Use Only) 20:21:44 DRUM SAW OPERATOR 201 02/12/11 CPT-94796 UA Dip Auto (Floor Use Only) 10:04:39 DRUM SAW OPERATOR 2 CPT-67999 Urine Dip (Floor Use Only) 13:27:28 DRUM SAW OPERATOR 201 02/12/01 CPT-20863 Bladder Scan 13:27:28 DRUM SAW OPERATOR CPT-37502 Abd single AP View 14:30:51 DRUM SAW OPERATOR CPT-OV Office Visit 10:15:43 CDT CPT-94291 Urine Dip (Floor Use Only) 17:22:21 CDT 201 02/09/02 CPT-78917 Bladder Scan 17:22:21 CDT
--- OUTSIDE RECORDS SUMMARY | 2020-05-05 11:41 | XMS REPORT | Clinical Summary ---
Author Author Talon, Jeri Wood Organization [employer] Address Unknown Phone Unavailable Allergies, Adverse Reactions, [...] Provider Comment Standard Description Annotate Depression V17.0 Active Kayla Cooper MD Family history of psychiatric condition Diabetes V18.0 Active Kayla Cooper MD Family history of diabetes mellitus U T I-Recurrent 599.0 Active Kayla Owusu Urinary tract infection, site not specified Incomplete Bladder Emptying 788.21 Active Kayla Cooper MD Incomplete bladder emptying WELL WOMAN EXAMINATION V72.31 Active Edith schofield MD Routine gynecological examination Dyspareunia 625.0 Active [...] Acute sinusitis, unspecified Interstitial Cystitis 595.1 Active Kalya richmond MD Chronic interstitial cystitis Preventive health care V70.0 Active Tesfaye barron MD Routine general medical examination at a health care facility Sinusitis 461.9 Active Tesfaye Sherman MD Acute sinusitis, unspecified B12 deficiency 266.2 Active Tesfaye Sherman MD Other B- complex deficiencies Dysuria 788.1 Active Adriana Arredondo Dysuria Sinusitis 473.9 Active Tesfaye Sherman MD Unspecified sinusitis (chronic) Dysuria 788.1 Active Tesfaye Sherman MD Dysuria Yeast infection 112.9 Active Tesfaye Owusu Candidiasis of unspecified site Depression 311 Active Chelsea Cardenas APRN Depressive disorder, not elsewhere classified Toe pain, right 729.5 Active Chelsea Cardenas CONDEMNATION ENGINEER Pain in limb Foot pain, right 729.5 Active Chelsea Cardenas CONDEMNATION ENGINEER Pain in limb Joint pain 719.40 Active Chelsea Cardenas CONDEMNATION ENGINEER Pain in joint, site unspecified Tobacco abuse 305.1 Refinement Edith Burch MD Tobacco use disorder Personal history of tobacco use V15.82 Active 2017 Tesfaye Sherman MD Personal history of tobacco use Dysuria 788.1 Active Tesfaye Sherman MD Dysuria Depression, major, recurrent [...] and cartilage, unspecified Preventive health care V70.0 Active Tesfaye barron MD Routine general medical examination at a health care facility Body Mass Index 21.0-21.9 Adult Active 2017 Tesfaye Sherman MD Body Mass Index between 19-24, adult Preventive health care V70.0 Active Tesfaye barron MD Routine general medical examination at a health care facility Fibromyalgia 729.1 Active Tesfaye Sherman MD Myalgia and myositis, unspecified Personal history of fall V15.88 Active Tesfaye Sherman MD Personal history of fall Rheumatoid arthritis, chronic 714.0 Active 04/05 Tesfaye Sherman MD Rheumatoid arthritis Vertigo 780.4 Active Tesfaye Sherman MD Dizziness and giddiness Medication List Medication Instructions Start Date Stop Date Generic Name NDC Status Provider Patient Instruction CYMBALTA 60 MG ORAL CAPSULE DELAYED RELEASE PARTICLES 1 cap by mouth daily for pain DULOXETINE HCL 60525704489 Active Tesfaye Owusu Active DIFLUCAN 100 MG ORAL TABLET 1 tablet by mouth daily 20 20/06/06 FLUCONAZOLE 36679874538 No Longer Active Tesfaye Sherman MD Acti ve PREDNISONE 20 MG ORAL TABLET 1 tablet by mouth twice d aily for 3 days, then 1 tablet daily for 3 days PREDNISONE 07877910337 No L onger Active Tesfaye Sherman MD Active DIFLUCAN 100 MG ORAL TABLET 1 tablet by mouth daily FLUCONAZOLE 11627453260 Active Laurence Angelica Active BACTRIM DS 800-160 MG ORAL TABLET 1 tab by mouth twice daily 201 06/09/02 TRIMETHOPRIM-SULFAMETHOXAZOLE 44375098391 No Longer Active A mirna Dominguez Active DIFLUCAN 100 MG ORAL TABLET 1 tablet by mouth daily 20 20/05/01 FLUCONAZOLE 42361352662 No Longer Active Tesfaye Sherman MD Acti ve ZITHROMAX 250 MG ORAL TABLET 2 po today, then 1 po q days 2-5 20 20/04/28 AZITHROMYCIN 58413987147 No Longer Active Tesfaye Sherman MD Active MECLIZINE HCL 25 MG ORAL TABLET one tab po qday prn dizziness 20 17/09/06 MECLIZINE HCL 37279262583 No Longer Active Tesfaye Sherman MD Active PROAIR HFA 108 (90 BASE) MCG/ACT INHALATION AEROSOL SO LUTION 1 puff every 6 hours as needed ALBUTEROL SULFATE 46808872580 No Long er Active Tesfaye Sherman MD Active OXYCODONE-ACETAMINOPHEN 5-325 MG ORAL TABLET Take one tablet by mouth every 6 hours as needed. Use sparingly OXYCODONE-ACETAMINOPHEN 61407879385 Active Tesfaye Sherman MD Active PREDNISONE 20 MG ORAL TABLET 1 tab twice daily for 3 d ay, then one daily for three days PREDNISONE 87447642475 No Longer Active Tesfaye Sherman MD Active MECLIZINE HCL 25 MG ORAL TABLET one 4 times a day as needed for dizziness MECLIZINE HCL 24259958042 Active Laurence Dominguez Active AMOXICILLIN 500 MG ORAL CAPSULE 1 cap by mouth three times a day AMOXICILLIN 54221120590 No Longer Active Laurence Dominguez Acti ve VENLAFAXINE HCL 75 MG ORAL TABLET 1 am 1/2 at noon VENLAFAXINE HCL 59806730990 Active Tesfaye Sherman MD Active DIFLUCAN 100 MG ORAL TABLET 1 tablet by mouth daily 20 19/08/26 FLUCONAZOLE 21073269984 No Longer Active Tesfaye Sherman MD Acti ve BACTRIM DS 800-160 MG ORAL TABLET 1 tab by mouth twice daily 201 05/10/28 TRIMETHOPRIM-SULFAMETHOXAZOLE 10652264025 No Longer Active Fer Dominguez Active FOSAMAX 70 MG ORAL TABLET 1 po qweek. Take 30min prio r to first food/drink. Avoid lying down x 1 hour. ALENDRONATE SODIUM 95105759 144 No Longer Active Laurence Dominguez Active REPHRESH PRO-B ORAL CAPSULE 1 tablet daily LACT OBACILLUS 81244775397 Active Edith Burch MD Active CYMBALTA 60 MG ORAL CAPSULE DELAYED RELEASE PARTICLES Take 1 tablet by mouth daily DULOXETINE HCL 32771174431 No Longer Active Edith Burch MD Active CYMBALTA 30 MG ORAL CAPSULE DELAYED RELEASE PARTICLES 1 cap by mouth daily with 60mg DULOXETINE HCL 70678318739 No Longer Active Jordan Burch MD Active FISH OIL 1000 MG ORAL CAPSULE DELAYED RELEASE 1 pill b y mouth daily for cholesterol OMEGA-3 FATTY ACIDS 57991519440 Active Cee Jaffe LPN Active RED YEAST RICE 600 MG ORAL CAPSULE 1 pill by mouth daily RED YEAST RICE EXTRACT 11292093425 Active Rosa Jaffe LPN Activ e DIFLUCAN 100 MG ORAL TABLET 1 tablet by mouth daily 20 19/03/05 FLUCONAZOLE 67271678554 No Longer Active Tesfaye Sherman MD Acti ve BACTRIM DS 800-160 MG ORAL TABLET 1 tab by mouth twice daily 201 05/06/28 TRIMETHOPRIM-SULFAMETHOXAZOLE 59349428958 No Longer Active Umer Sherman MD Active BACTRIM DS 800-160 MG ORAL TABLET 1 tab by mouth twice daily 201 05/04/15 TRIMETHOPRIM-SULFAMETHOXAZOLE 18544197697 No Longer Active Umer Sherman MD Active DIFLUCAN 150 MG ORAL TABLET 1 tablet by mouth daily 20 18/09/20 FLUCONAZOLE 77090750268 No Longer Active Tesfaye Sherman MD Acti ve BACTRIM DS 800-160 MG ORAL TABLET 1 tab by mouth twice daily 201 04/13/17 TRIMETHOPRIM-SULFAMETHOXAZOLE 05519070880 No Longer Active Umer Sherman MD Active ROPINIROLE HCL 0.25 MG ORAL TABLET 1 TAB PO Q HS ROPINIROLE HCL 84718238559 Active Tesfaye Sherman MD Active CEFTIN 250 MG ORAL TABLET 1 tablet twice daily x 7 days CEFUROXIME AXETIL 93064046824 No Longer Active Tesfaye Sherman MD Active DIFLUCAN 100 MG ORAL TABLET 1 tablet by mouth every other da y for 2 doses FLUCONAZOLE 41341966145 No Longer Active Tesfaye barron MD Active DIFLUCAN 100 MG ORAL TABLET 1 tablet by mouth daily X 3 DAYS 201 04/09/01 FLUCONAZOLE 87232804656 No Longer Active Rj Lyons tidragan MIRTAZAPINE 15 MG ORAL TABLET 1/2 tab by mouth at bedtime. 03/13 MIRTAZAPINE 85797694256 No Longer Active Tesfaye Sherman MD Active BACTRIM DS 800-160 MG ORAL TABLET 1 tab by mouth twice daily 201 04/09/01 TRIMETHOPRIM-SULFAMETHOXAZOLE 61334238584 No Longer Active Umer Sherman MD Active PRAMIPEXOLE DIHYDROCHLORIDE 0.125 MG ORAL TABLET take 1 tablet po qhs for restless leg syndrome. PRAMIPEXOLE DIHYDROCHLORI DE 61394073906 No Longer Active Tesfaye Sherman MD Active MAGNESIUM 400 MG ORAL TABLET 1 tab po daily MAGNE SIUM 00326923883 Active Chelsea Arell CONDEMNATION ENGINEER Active SUDAFED 24 HOUR 240 MG ORAL TABLET EXTENDED RELEASE 24 HOUR 1 tab po daily PSEUDOEPHEDRINE HCL 51714798638 Active Chelsea Arell CONDEMNATION ENGINEER Active CETIRIZINE HCL 5 MG ORAL TABLET Take 1 tablet by mouth daily CETIRIZINE HCL 63005128070 No Longer Active Chelsea Cardenas APRN Activ e TRIMETHOPRIM 100 MG ORAL TABLET 1/2 qd TRIM ETHOPRIM 50635395556 No Longer Active Chelsea Cardenas APRN Active BACTRIM DS 800-160 MG ORAL TABLET 1 tab by mouth twice daily 201 04/04/11 TRIMETHOPRIM-SULFAMETHOXAZOLE 07018920206 No Longer Active Umer Sherman MD Active BACTRIM DS 800-160 MG ORAL TABLET 1 tab by mouth twice daily X 10 DAYS TRIMETHOPRIM-SULFAMETHOXAZOLE 30508194042 No Longer Active Tesfaye Sherman MD Active AMOXICILLIN 500 MG ORAL CAPSULE 1 cap by mouth three times a day AMOXICILLIN 74812423189 No Longer Active Adriana Arredondo Active B-12 1000 MCG ORAL LOZENGE 1 tab po daily CYANO COBALAMIN 52888856640 Active Tesfaye Sherman MD Active VITAMIN D3 2000 UNIT ORAL TABLET 1 daily, for vitamin D deficien cy CHOLECALCIFEROL 71060738241 No Longer Active Tesfaye Sherman MD Active TIZANIDINE HCL 2 MG ORAL TABLET take 1-2 tablet by mo [facility] every day at bedtime at 9pm PRN TIZANIDINE HCL 11172244451 Active Tesfaye hewitt MD Active ZITHROMAX 250 MG ORAL TABLET 2 po today, then 1 po q days 2-5 20 15/02/10 AZITHROMYCIN 17001944057 No Longer Active Tesfaye Sherman MD Active BACTRIM DS 800-160 MG ORAL TABLET 1 tab by mouth twice daily 201 03/03/23 TRIMETHOPRIM-SULFAMETHOXAZOLE 43410918875 No Longer Active Umer Sherman MD Active PRELIEF 340 (65-50) MG (CA-P) ORAL TABLET CALCIUM GLYCEROPHOSPHATE 98289522060 Active Tesfaye Sherman MD Acti ve [facility] NIACIN FLUSH FREE 400-100 MG ORAL CAPSULE 1 daily NIACIN-INOSITOL 50629821727 Active Kayla Cooper MD Activ e DIFLUCAN 150 MG ORAL TABLET 1 qd FLUCONAZOL E 33318558708 No Longer Active Kayla Cooper MD Active FLUTICASONE PROPIONATE 50 MCG/ACT NASAL SUSPENSION 1 spray each nostril twice daily FLUTICASONE PROPIONATE 70947209096 Active Umer Sherman MD Active LOVASTATIN 20 MG ORAL TABLET Take 1 tablet by mouth daily LOVASTATIN 57023190540 No Longer Active Tesfaye Sherman MD Acti ve MELOXICAM 7.5 MG ORAL TABLET 1 tablet by mouth daily 2 MELOXICAM 91226626747 No Longer Active Tesfaye Sherman MD Acti ve GABAPENTIN 300 MG ORAL CAPSULE Take two tablets by mouth every e vening GABAPENTIN 35704597311 No Longer Active Edith Burch MD A ctive CLONAZEPAM 0.5 MG ORAL TABLET Take one tablet in the orning and 1.5 tablet at 7pm CLONAZEPAM 81764119808 Active Kayla Cooper MD Active BACLOFEN 10 MG ORAL TABLET Take one tablet by mouth three times a d ay BACLOFEN 37279162244 Active Kayla Cooper MD Active GABAPENTIN 300 MG ORAL CAPSULE Take two tablets by mouth every e vening GABAPENTIN 300 MG ORAL CAPSULE 219603 GABAPENTIN I nactive MELOXICAM 7.5 MG ORAL TABLET 1 tablet by mouth daily 2 MELOXICAM 7.5 MG ORAL TABLET 049658 MELOXICAM Inactive LOVASTATIN 20 MG ORAL TABLET Take 1 tablet by mouth daily LOVASTATIN 20 MG ORAL TABLET 534664 LOVASTATIN Inactive DIFLUCAN 150 MG ORAL TABLET 1 qd DIFLUCAN 150 MG ORAL TABLET 934036 FLUCONAZOLE Inactive VITAMIN D3 2000 UNIT ORAL TABLET 1 daily, for vitamin D deficien cy VITAMIN D3 2000 UNIT ORAL TABLET CHOLECALCIFEROL Inactive AMOXICILLIN 500 MG ORAL CAPSULE 1 cap by mouth three times a day AMOXICILLIN 500 MG ORAL CAPSULE 117508 AMOXICILLIN Inactive BACTRIM DS 800-160 MG ORAL TABLET 1 tab by mouth twice daily X 10 DAYS BACTRIM DS 800-160 MG ORAL TABLET 986617 TRIMETHOPRIM-SULFAMETHOXAZOLE Inactive TRIMETHOPRIM 100 MG ORAL TABLET 1/2 qd 7 TRIMETHOPRIM 100 MG ORAL TABLET 878360 TRIMETHOPRIM Inactive CETIRIZINE HCL 5 MG ORAL TABLET Take 1 tablet by mouth daily CETIRIZINE HCL 5 MG ORAL TABLET 3797353 CETIRIZINE HCL Inactive PRAMIPEXOLE DIHYDROCHLORIDE 0.125 MG ORAL TABLET take 1 tablet po qhs for restless leg syndrome. PRAMIPEXOLE DIHYD ROCHLORIDE 0.125 MG ORAL TABLET 367139 PRAMIPEXOLE DIHYDROCHLORIDE Inactive MIRTAZAPINE 15 MG ORAL TABLET 1/2 tab by mouth at bedtime. 03/13 MIRTAZAPINE 15 MG ORAL TABLET 555680 MIRTAZAPINE In active DIFLUCAN 100 MG ORAL TABLET 1 tablet by mouth daily X 3 DAYS 201 04/09/01 DIFLUCAN 100 MG ORAL TABLET 103200 FLUCONAZOLE Inac tive DIFLUCAN 100 MG ORAL TABLET 1 tablet by mouth every other da y for 2 doses DIFLUCAN 100 MG ORAL TABLET 644376 FLUCONAZOLE Inactive CEFTIN 250 MG ORAL TABLET 1 tablet twice daily x 7 days CEFTIN 250 MG ORAL TABLET CEFUROXIME AXETIL Inactive CYMBALTA 30 MG ORAL CAPSULE DELAYED RELEASE PARTICLES 1 cap by mouth daily with 60mg CYMBALTA 30 MG ORAL CAPSULE DELAYED RELEASE PARTICLES 142902 DULOXETINE HCL Inactive CYMBALTA 60 MG ORAL CAPSULE DELAYED RELEASE PARTICLES Take 1 tablet by mouth daily CYMBALTA 60 MG ORAL CAPSULE DELAYED RELEA SE PARTICLES 857983 DULOXETINE HCL Inactive FOSAMAX 70 MG ORAL TABLET 1 po qweek. Take 30min prio r to first food/drink. Avoid lying down x 1 hour. FOSAMAX 70 MG ORAL TA BLET 647941 ALENDRONATE SODIUM Inactive DIFLUCAN 100 MG ORAL TABLET 1 tablet by mouth daily 20 19/08/26 DIFLUCAN 100 MG ORAL TABLET 937587 FLUCONAZOLE Inactive PREDNISONE 20 MG ORAL TABLET 1 tab twice daily for 3 d ay, then one daily for three days PREDNISONE 20 MG ORAL TABLET 021035 PREDNIS ONE Inactive PROAIR HFA 108 (90 BASE) MCG/ACT INHALATION AEROSOL SO LUTION 1 puff every 6 hours as needed PROAIR HFA 108 (90 B ASE) MCG/ACT INHALATION AEROSOL SOLUTION ALBUTEROL SULFATE Inactive MECLIZINE HCL 25 MG ORAL TABLET one tab po qday prn dizziness 20 17/09/06 MECLIZINE HCL 25 MG ORAL TABLET 279925 MECLIZINE HCL Inactive PREDNISONE 20 MG ORAL TABLET 1 tablet by mouth twice d aily for 3 days, then 1 tablet daily for 3 days PREDNISONE 20 MG ORAL TA BLET 766583 PREDNISONE Inactive DIFLUCAN 100 MG ORAL TABLET 1 tablet by mouth daily 20 20/06/06 DIFLUCAN 100 MG ORAL TABLET 189190 FLUCONAZOLE Inactive BACTRIM DS 800-160 MG ORAL TABLET 1 tab by mouth twice daily 201 03/03/23 BACTRIM DS 800-160 MG ORAL TABLET 248067 TRIMETHOPRIM-SULFAMETHOXAZOLE Inactive ZITHROMAX 250 MG ORAL TABLET 2 po today, then 1 po q days 2-5 20 15/02/10 ZITHROMAX 250 MG ORAL TABLET 650781 AZITHROMYCIN [place] ctive BACTRIM DS 800-160 MG ORAL TABLET [...] a day AMOXICILLIN 500 MG ORAL CAPSULE 348754 AMOXICILLIN Inactive ZITHROMAX 250 MG ORAL TABLET 2 po today, then 1 po q days 2-5 20 20/04/28 ZITHROMAX 250 MG ORAL TABLET 459584 AZITHROMYCIN [place] ctive DIFLUCAN 100 MG ORAL TABLET 1 tablet by mouth daily 20 20/05/01 DIFLUCAN 100 MG ORAL TABLET 19760711 FLUCONAZOLE Inactive BACTRIM DS 800-160 MG ORAL TABLET 1 tab by mouth twice daily 201 06/09/02 BACTRIM DS 800-160 MG ORAL TABLET 19830105 TRIMETHOPRIM-SULFAMETHOXAZOLE Inactive Advance Directives Directive Description Start Date PERMISSION TO SHARE DISCUSSED WITH PATIENT -- NO DECISION MADE DURABLE POWER OF ENROLLER FOR HEALTHCARE DISCUSED WITH PATIENT -- FULL [...] weight E&M 116.5 [lb_av] Weight Measure d blood pressure, diastolic 84 mm[Hg] BP lyon blood pressure, systolic 131 mm[Hg] BP sys height E&M 62 [in_us] Bdy height pulse rate E&M 88 /min Heart rate temperature E&M 98.3 [degF] Body temp erature weight E&M 117.5 [lb_av] Weight Measure d blood pressure, diastolic 72 mm[Hg] BP lyon blood pressure, systolic 144 mm[Hg] BP sys height E&M 62 [in_us] Bdy height pulse rate E&M 74 /min Heart rate temperature E&M 97.6 [degF] Body temp erature weight E&M 119.5 [lb_av] Weight Measure d Diagnostic Results Date Name Value Unit Range Description Chart Maintenance: hemoccult added to fl ow sheet - Chemistry occult blood, stool (E&M) Negative Lab Report: Comp. Metabolic Panel, [facility] - Chemistry sodium, serum 141 mmol/L 137-246 1667/01/26 carbon dioxide, venous blood 29.5 mmol/L 21.0-32 .0 potassium, serum 4.5 mmol/L 3.5-5.2 chloride, serum 103 mmol/L 98-107 blood glucose 89 mg/dL 65-110 urea nitrogen, blood 13 mg/dL 7-18 creatinine, serum 0.65 mg/dL 0.60-1.30 alanine aminotransferase (SGPT), serum 29 U/L 12-78 aspartate aminotransferase (SGOT), serum 20 U/L 15-37 calcium, serum 9.0 mg/dL 8.5-10.1 bilirubin, serum, total 0.40 mg/dL 0.00-1.00 Lab Report: UADIP W/MICRO, AUTO - Chemis try protein, total urine random Negative mg/dL Negative protein, total urine random Negative mg/dL Negative RBC, urine, dipstick Trace-intact Negative RBC, urine, dipstick Trace-intact Negative Lab Report: UADIP W/MICRO, AUTO - Urinal ysis urobilinogen, urine, semiquantitative (dipstick) 0.2 E .U./dL Normal leukocyte esterase, urine, by dipstick Negative Negative nitrite, urine, semiquantitative Negative Neg ative urobilinogen, urine, semiquantitative (dipstick) 0.2 E .U./dL Normal leukocyte esterase, urine, by dipstick Negative Negative nitrite, urine, semiquantitative Negative Neg ative glucose, urine, semiquantitative Negative Neg ative ketones, urine, by test strip Negative Negati ve bilirubin, urine Negative Negative urine color Yellow Colorless;Lightyellow;St raw;Yellow appearance, urine Clear Clear specific gravity, urine 1.010 1.000-1.030 pH, urine, semiquantitative 7.0 5.0-8.5 glucose, urine, semiquantitative Negative Neg ative ketones, urine, by test strip Negative Negati ve bilirubin, urine Negative Negative urine color Yellow Colorless;Lightyellow;St raw;Yellow appearance, urine Clear Clear specific gravity, urine 1.015 1.000-1.030 pH, urine, semiquantitative 7.0 5.0-8.5 Office Visit: 3 MO F/U - Basic LDL target level 160 mg/dL Office Visit: 3 MO F/U - Chemistry HDL cholesterol, serum, target level 40 mg/dL triglyceride, target level 150 mg/dL cholesterol, target level 200 mg/dL Office Visit: 3 month fu - Basic LDL target level 160 mg/dL Office Visit: 3 month fu - Chemistry HDL cholesterol, serum, target level 40 mg/dL triglyceride, target level 150 mg/dL cholesterol, target level 200 mg/dL Encounters Code Encounter Date Provider Facility CPT-84074 [id number] Vst-Est Level IV 10:41:41 C BRIDGET Sherman MD [facility] CPT-66755 [id number] Vst-Est Level III 09:40:56 CDT Tesfaye Sherman MD [facility] CPT-89002 Level 4 Est. Patient 22:18:12 CDT Tesfaye pearson MD [facility] CPT-78629 Level 4 Est. Patient 14:44:33 WASH OIL PUMP OPERATOR HELPER Tesfaye pearson MD [facility] CPT-14929 Level 4 Est. Patient 13:55:29 WASH OIL PUMP OPERATOR HELPER Tesfaye pearson MD [facility] CPT-84745 Level 4 Est. Patient 17:07:34 WASH OIL PUMP OPERATOR HELPER Tesfaye pearson MD [facility] CPT-34944 Level 4 Est. Patient 13:56:54 CDT Tesfaye pearson MD [facility] CPT-26143 Level 4 Est. Patient 13:24:25 CDT Chelsea sanz APRN [facility] CPT-11055 Level 4 Est. Patient 09:14:56 CDT Tesfaye pearson MD [facility]-40939 Level 4 Est. Patient 18:40:25 WASH OIL PUMP OPERATOR HELPER Tesfaye pearson MD [facility] CPT-96134 Level 4 Est. Patient 18:13:07 WASH OIL PUMP OPERATOR HELPER Tesfaye pearson MD [facility] CPT-85145 Level 3 Est. Patient 10:46:32 CDT Rj cotto DO [facility] CPT-04067 Level 4 Est. Patient 20:19:25 CDT Tesfaye pearson MD [facility] CPT-91569 Level 3 Est. Patient 09:07:31 CDT Tesfaye pearson MD [facility] CPT-10216 Level 4 Est. Patient 13:12:56 CDT Tesfaye pearson MD [facility] CPT-95012 Level 4 Est. Patient 21:24:55 WASH OIL PUMP OPERATOR HELPER Tesfaye pearson MD [facility] CPT-74503 Level 3 Est. Patient 13:45:04 WASH OIL PUMP OPERATOR HELPER Tesfaye pearson MD [facility] CPT-23612 Level 4 Est. Patient 13:50:45 CDT Tesfaye pearson MD [facility] CPT-79059 Level 3 Est. Patient 10:16:10 CDT Tesfaye pearson MD [facility] CPT-63408 Level 3 Est. Patient 16:36:07 WASH OIL PUMP OPERATOR HELPER Kayla jameson MD [facility] CPT-51917 Level 4 Est. Patient 16:00:14 WASH OIL PUMP OPERATOR HELPER Tesfaye pearson MD [facility] CPT-41069 Level 4 Est. Patient 11:02:24 WASH OIL PUMP OPERATOR HELPER Tesfaye pearson MD [facility] CPT-56392 Level 3 Est. Patient 20:21:43 WASH OIL PUMP OPERATOR HELPER Kayla jameson MD [facility] CPT-99156 Level 3 Est. Patient 13:27:28 WASH OIL PUMP OPERATOR HELPER Kayla jameson MD [facility] CPT-16044 Level 4 Est. Patient 15:57:17 WASH OIL PUMP OPERATOR HELPER Tesfaye pearson MD [facility] CPT-97206 Level 3 New Patient 13:25:47 CDT Tesfaye kidd MD [facility] CPT-36157 Level 3 New Patient 17:22:21 CDT J John angel MD [facility] Procedures Code Procedure Name Date Entry Date Standard Desc ription CPT-G0439 Subsequent Annual Wellness Exam 22:18:11 CDT CPT-31471 Bone Density - XRAY USE ONLY 11:43:58 CDT 2 CPT-59795 Bone Density - XRAY USE ONLY 10:05:16 CDT 2 CPT-13254 Prv Med New Pt 40-64 yrs 18:19:25 CDT 2016 CPT-02379 Foot, right, comp min 3V - XRAY USE ONLY 10:38:34 CDT CPT-G0439 Subsequent Annual Wellness Exam 13:55:04 CDT CPT-G0438 Initial Annual Wellness Exam 11:23:17 CD T CPT-J2930 Solu Medrol 125 mg (Methyl Prednisolone Sodium Succinate) 17:29:12 WASH OIL PUMP OPERATOR HELPER CPT-17356 Abx/Therapy Injection 17:29:11 WASH OIL PUMP OPERATOR HELPER CPT-J2930 Solu Medrol 125 mg (Methyl Prednisolone Sodium Succinate) 12:34:38 WASH OIL PUMP OPERATOR HELPER CPT-J3420 Vitamin B12 1000mcg (Cyanocobalamin) 09:12:55 CDT CPT-J3420 Vitamin B12 1000mcg (Cyanocobalamin) 16:28:06 WASH OIL PUMP OPERATOR HELPER CPT-05965 Venipuncture Draw Fee 08:39:53 CDT CPT-J3420 Vitamin B12 1000mcg (Cyanocobalamin) 08:46:22 CDT CPT-10236 Abx/Therapy Injection 08:46:22 CDT CPT-J3420 Vitamin B12 1000mcg (Cyanocobalamin) 08:41:26 CDT CPT-77407 Abx/Therapy Injection 08:41:26 CDT CPT-J3420 Vitamin B12 1000mcg (Cyanocobalamin) 08:57:15 CDT CPT-07031 Abx/Therapy Injection 08:57:15 CDT CPT-J3420 Vitamin B12 1000mcg (Cyanocobalamin) 10:59:03 CDT CPT-63365 Abx/Therapy Injection 10:59:03 CDT CPT-J3420 Vitamin B12 1000mcg (Cyanocobalamin) 15:05:39 CDT CPT-35567 Abx/Therapy Injection 15:05:39 CDT CPT-J3420 Vitamin B12 1000mcg (Cyanocobalamin) 13:50:45 CDT CPT-J3420 Vitamin B12 1000mcg (Cyanocobalamin) 08:48:55 CDT CPT-44894 Abx/Therapy Injection 08:48:55 CDT CPT-J3420 Vitamin B12 1000mcg (Cyanocobalamin) 09:14:54 CDT CPT-20338 Abx/Therapy Injection 09:14:54 CDT CPT-J3420 Vitamin B12 1000mcg (Cyanocobalamin) 09:06:06 CDT CPT-81082 Abx/Therapy Injection 09:06:06 CDT CPT-J3420 Vitamin B12 1000mcg (Cyanocobalamin) 09:49:14 CDT CPT-26756 Abx/Therapy Injection 09:49:14 CDT CPT-J3420 Vitamin B12 1000mcg (Cyanocobalamin) 09:10:30 WASH OIL PUMP OPERATOR HELPER CPT-32562 Abx/Therapy Injection 09:10:30 WASH OIL PUMP OPERATOR HELPER CPT-J3420 Vitamin B12 1000mcg (Cyanocobalamin) 09:11:07 WASH OIL PUMP OPERATOR HELPER CPT-79242 Abx/Therapy Injection 09:11:07 WASH OIL PUMP OPERATOR HELPER CPT-J3420 Vitamin B12 1000mcg (Cyanocobalamin) 09:57:03 WASH OIL PUMP OPERATOR HELPER CPT-92838 Abx/Therapy Injection 09:57:03 WASH OIL PUMP OPERATOR HELPER CPT-J3420 Vitamin B12 1000mcg (Cyanocobalamin) 09:23:21 WASH OIL PUMP OPERATOR HELPER CPT-13204 Abx/Therapy Injection 09:23:21 WASH OIL PUMP OPERATOR HELPER CPT-90095 Urine Dip (Floor Use Only) 20:21:44 WASH OIL PUMP OPERATOR HELPER 201 02/12/11 CPT-45263 UA Dip Auto (Floor Use Only) 10:04:39 WASH OIL PUMP OPERATOR HELPER 2 CPT-10982 Urine Dip (Floor Use Only) 13:27:28 WASH OIL PUMP OPERATOR HELPER 201 02/12/01 CPT-24698 Bladder Scan 13:27:28 WASH OIL PUMP OPERATOR HELPER CPT-39392 Abd single AP View 14:30:51 WASH OIL PUMP OPERATOR HELPER CPT-OV Office Visit 10:15:43 CDT CPT-73768 Urine Dip (Floor Use Only) 17:22:21 CDT 201 02/09/02 CPT-92280 Bladder Scan 17:22:21 CDT
--- OUTSIDE RECORDS SUMMARY | 2020-05-05 11:41 | XMS REPORT | Clinical Summary ---
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 Pain in limb Foot pain, right 729.5 Active Chelsea Cardenas DIESEL LOCOMOTIVE FIRER Pain in limb Joint pain 719.40 Active Chelsea Cardenas DIESEL LOCOMOTIVE FIRER Pain in joint, site unspecified Tobacco abuse 305.1 Refinement Edith Burch MD Tobacco use disorder Personal history of tobacco use V15.82 Active 2017 Tesfaye Sherman MD Personal history of tobacco use Dysuria 788.1 Active Tesfaye Sherman MD Dysuria Depression, major, recurrent 296.30 Refinement Tesafye Sherman MD Major depressive disorder, recurrent epi [...] by mouth daily for pain DULOXETINE HCL 17491065448 Active Tesfaye Owusu Active DIFLUCAN 100 MG ORAL TABLET 1 tablet by mouth daily 20 20/06/06 FLUCONAZOLE 26880824813 No Longer Active Tesfaye Sherman MD Acti ve PREDNISONE 20 MG ORAL TABLET 1 tablet by mouth twice d aily for 3 days, then 1 tablet daily for 3 days PREDNISONE 12399074524 No L onger Active Tesfaye Sherman MD Active DIFLUCAN 100 MG ORAL TABLET 1 tablet by mouth daily FLUCONAZOLE 55398041850 Active Laurence Angelica Active BACTRIM DS 800-160 MG ORAL TABLET 1 tab by mouth twice daily 201 06/09/02 TRIMETHOPRIM-SULFAMETHOXAZOLE 58015615986 No Longer Active A mirna Dominguez Active DIFLUCAN 100 MG ORAL TABLET 1 tablet by mouth daily 20 20/05/01 FLUCONAZOLE 05880420316 No Longer Active Tesfaye Sherman MD Acti ve ZITHROMAX 250 MG ORAL TABLET 2 po today, then 1 po q days 2-5 20 20/04/28 AZITHROMYCIN 97531399070 No Longer Active Tesfaye Sherman MD Active MECLIZINE HCL 25 MG ORAL TABLET one tab po qday prn dizziness 20 17/09/06 MECLIZINE HCL 36212111344 No Longer Active Tesfaye Sherman MD Active PROAIR HFA 108 (90 BASE) MCG/ACT INHALATION AEROSOL SO LUTION 1 puff every 6 hours as needed ALBUTEROL SULFATE 53073419207 No Long er Active Tesfaye Sherman MD Active OXYCODONE-ACETAMINOPHEN 5-325 MG ORAL TABLET Take one tablet by mouth every 6 hours as needed. Use sparingly OXYCODONE-ACETAMINOPHEN 31114349999 Active Tesfaye Sherman MD Active PREDNISONE 20 MG ORAL TABLET 1 tab twice daily for 3 d ay, then one daily for three days PREDNISONE 53615425335 No Longer Active Tesfaye Sherman MD Active MECLIZINE HCL 25 MG ORAL TABLET one 4 times a day as needed for dizziness MECLIZINE HCL 86370181828 Active Laurence Dominguez Active AMOXICILLIN 500 MG ORAL CAPSULE 1 cap by mouth three times a day AMOXICILLIN 79229232401 No Longer Active Laurecne Dominguez Acti ve VENLAFAXINE HCL 75 MG ORAL TABLET 1 am 1/2 at noon VENLAFAXINE HCL 39738915345 Active Tesfaye Sherman MD Active DIFLUCAN 100 MG ORAL TABLET 1 tablet by mouth daily 20 19/08/26 FLUCONAZOLE 84988767052 No Longer Active Tesfaye Sherman MD Acti ve BACTRIM DS 800-160 MG ORAL TABLET 1 tab by mouth twice daily 201 05/10/28 TRIMETHOPRIM-SULFAMETHOXAZOLE 96574251405 No Longer Active Fer Dominguez Active FOSAMAX 70 MG ORAL TABLET 1 po qweek. Take 30min prio r to first food/drink. Avoid lying down x 1 hour. ALENDRONATE SODIUM 55908218 144 No Longer Active Laurence Dominguez Active REPHRESH PRO-B ORAL CAPSULE 1 tablet daily LACT OBACILLUS 55941306542 Active Edith Burch MD Active CYMBALTA 60 MG ORAL CAPSULE DELAYED RELEASE PARTICLES Take 1 tablet by mouth daily DULOXETINE HCL 02348355608 No Longer Active Edith Burch MD Active CYMBALTA 30 MG ORAL CAPSULE DELAYED RELEASE PARTICLES 1 cap by mouth daily with 60mg DULOXETINE HCL 07256222200 No Longer Active Jordan Burch MD Active FISH OIL 1000 MG ORAL CAPSULE DELAYED RELEASE 1 pill b y mouth daily for cholesterol OMEGA-3 FATTY ACIDS 30943190425 Active Cee Jaffe LPN Active RED YEAST RICE 600 MG ORAL CAPSULE 1 pill by mouth daily RED YEAST RICE EXTRACT 36053102326 Active Rosa Jaffe LPN Activ e DIFLUCAN 100 MG ORAL TABLET 1 tablet by mouth daily 20 19/03/05 FLUCONAZOLE 23821016461 No Longer Active Tesfaye Sherman MD Acti ve BACTRIM DS 800-160 MG ORAL TABLET 1 tab by mouth twice daily 201 05/06/28 TRIMETHOPRIM-SULFAMETHOXAZOLE 84509769189 No Longer Active Umer Sherman MD Active BACTRIM DS 800-160 MG ORAL TABLET 1 tab by mouth twice daily 201 05/04/15 TRIMETHOPRIM-SULFAMETHOXAZOLE 36815415685 No Longer Active Umer Sherman MD Active DIFLUCAN 150 MG ORAL TABLET 1 tablet by mouth daily 20 18/09/20 FLUCONAZOLE 60217001790 No Longer Active Tesfaye Sherman MD Acti ve BACTRIM DS 800-160 MG ORAL TABLET 1 tab by mouth twice daily 201 04/13/17 TRIMETHOPRIM-SULFAMETHOXAZOLE 97388963853 No Longer Active Umer Sherman MD Active ROPINIROLE HCL 0.25 MG ORAL TABLET 1 TAB PO Q HS ROPINIROLE HCL 82945659244 Active Tesfaye Sherman MD Active CEFTIN 250 MG ORAL TABLET 1 tablet twice daily x 7 days CEFUROXIME AXETIL 02386851039 No Longer Active Tesfaye Sherman MD Active DIFLUCAN 100 MG ORAL TABLET 1 tablet by mouth every other da y for 2 doses FLUCONAZOLE 14735316719 No Longer Active Tesfaye barron MD Active DIFLUCAN 100 MG ORAL TABLET 1 tablet by mouth daily X 3 DAYS 201 04/09/01 FLUCONAZOLE 37566972462 No Longer Active Rj Lyons tidragan MIRTAZAPINE 15 MG ORAL TABLET 1/2 tab by mouth at bedtime. 03/13 MIRTAZAPINE 80883318111 No Longer Active Tesfaye Sherman MD Active BACTRIM DS 800-160 MG ORAL TABLET 1 tab by mouth twice daily 201 04/09/01 TRIMETHOPRIM-SULFAMETHOXAZOLE 41064660782 No Longer Active Umer Sherman MD Active PRAMIPEXOLE DIHYDROCHLORIDE 0.125 MG ORAL TABLET take 1 tablet po qhs for restless leg syndrome. PRAMIPEXOLE DIHYDROCHLORI DE 92964827164 No Longer Active Tesfaye Sherman MD Active MAGNESIUM 400 MG ORAL TABLET 1 tab po daily MAGNE SIUM 88023011317 Active Chelsea Arell DIESEL LOCOMOTIVE FIRER Active SUDAFED 24 HOUR 240 MG ORAL TABLET EXTENDED RELEASE 24 HOUR 1 tab po daily PSEUDOEPHEDRINE HCL 34935226829 Active Chelsea Arell DIESEL LOCOMOTIVE FIRER Active CETIRIZINE HCL 5 MG ORAL TABLET Take 1 tablet by mouth daily CETIRIZINE HCL 89170801966 No Longer Active Chelsea Cardenas APRN Activ e TRIMETHOPRIM 100 MG ORAL TABLET 1/2 qd TRIM ETHOPRIM 95997339015 No Longer Active Chelsea Cardenas APRN Active BACTRIM DS 800-160 MG ORAL TABLET 1 tab by mouth twice daily 201 04/04/11 TRIMETHOPRIM-SULFAMETHOXAZOLE 81437003302 No Longer Active Umer Sherman MD Active BACTRIM DS 800-160 MG ORAL TABLET 1 tab by mouth twice daily X 10 DAYS TRIMETHOPRIM-SULFAMETHOXAZOLE 34516721927 No Longer Active Tesfaye Sherman MD Active AMOXICILLIN 500 MG ORAL CAPSULE 1 cap by mouth three times a day AMOXICILLIN 38945140236 No Longer Active Adriana Arredondo Active B-12 1000 MCG ORAL LOZENGE 1 tab po daily CYANO COBALAMIN 13585467989 Active Tesfaye Sherman MD Active VITAMIN D3 2000 UNIT ORAL TABLET 1 daily, for vitamin D deficien cy CHOLECALCIFEROL 76632053782 No Longer Active Tesfaye Sherman MD Active TIZANIDINE HCL 2 MG ORAL TABLET take 1-2 tablet by mo [facility] every day at bedtime at 9pm PRN TIZANIDINE HCL 68535349249 Active Tesfaye hewitt MD Active ZITHROMAX 250 MG ORAL TABLET 2 po today, then 1 po q days 2-5 20 15/02/10 AZITHROMYCIN 19332109140 No Longer Active Tesfaye Sherman MD Active BACTRIM DS 800-160 MG ORAL TABLET 1 tab by mouth twice daily 201 03/03/23 TRIMETHOPRIM-SULFAMETHOXAZOLE 13504397578 No Longer Active Umer Sherman MD Active PRELIEF 340 (65-50) MG (CA-P) ORAL TABLET CALCIUM GLYCEROPHOSPHATE 64485767470 Active Tesfaye Sherman MD Acti ve [facility] NIACIN FLUSH FREE 400-100 MG ORAL CAPSULE 1 daily NIACIN-INOSITOL 50314982562 Active Kayla Cooper MD Activ e DIFLUCAN 150 MG ORAL TABLET 1 qd FLUCONAZOL E 61172694511 No Longer Active Kayla Cooper MD Active FLUTICASONE PROPIONATE 50 MCG/ACT NASAL SUSPENSION 1 spray each nostril twice daily FLUTICASONE PROPIONATE 55527195969 Active Umer Sherman MD Active LOVASTATIN 20 MG ORAL TABLET Take 1 tablet by mouth daily LOVASTATIN 35652198790 No Longer Active Tesfaye Sherman MD Acti ve MELOXICAM 7.5 MG ORAL TABLET 1 tablet by mouth daily 2 MELOXICAM 53558926582 No Longer Active Tesfaye Sherman MD Acti ve GABAPENTIN 300 MG ORAL CAPSULE Take two tablets by mouth every e vening GABAPENTIN 90554199255 No Longer Active Edith Burch MD A ctive CLONAZEPAM 0.5 MG ORAL TABLET Take one tablet in the orning and 1.5 tablet at 7pm CLONAZEPAM 97773975847 Active Kayla Cooper MD Active BACLOFEN 10 MG ORAL TABLET Take one tablet by mouth three times a d ay BACLOFEN 87669631887 Active Kayla Cooper MD Active GABAPENTIN 300 MG ORAL CAPSULE Take two tablets by mouth every e vening GABAPENTIN 300 MG ORAL CAPSULE 554765 GABAPENTIN I nactive MELOXICAM 7.5 MG ORAL TABLET 1 tablet by mouth daily 2 MELOXICAM 7.5 MG ORAL TABLET 642954 MELOXICAM Inactive LOVASTATIN 20 MG ORAL TABLET Take 1 tablet by mouth daily LOVASTATIN 20 MG ORAL TABLET 878586 LOVASTATIN Inactive DIFLUCAN 150 MG ORAL TABLET 1 qd DIFLUCAN 150 MG ORAL TABLET 231214 FLUCONAZOLE Inactive VITAMIN D3 2000 UNIT ORAL TABLET 1 daily, for vitamin D deficien cy VITAMIN D3 2000 UNIT ORAL TABLET CHOLECALCIFEROL Inactive AMOXICILLIN 500 MG ORAL CAPSULE 1 cap by mouth three times a day AMOXICILLIN 500 MG ORAL CAPSULE 429133 AMOXICILLIN Inactive BACTRIM DS 800-160 MG ORAL TABLET 1 tab by mouth twice daily X 10 DAYS BACTRIM DS 800-160 MG ORAL TABLET 985403 TRIMETHOPRIM-SULFAMETHOXAZOLE Inactive TRIMETHOPRIM 100 MG ORAL TABLET 1/2 qd 7 TRIMETHOPRIM 100 MG ORAL TABLET 201323 TRIMETHOPRIM Inactive CETIRIZINE HCL 5 MG ORAL TABLET Take 1 tablet by mouth daily CETIRIZINE HCL 5 MG ORAL TABLET 0978872 CETIRIZINE HCL Inactive PRAMIPEXOLE DIHYDROCHLORIDE 0.125 MG ORAL TABLET take 1 tablet po qhs for restless leg syndrome. PRAMIPEXOLE DIHYD ROCHLORIDE 0.125 MG ORAL TABLET 464335 PRAMIPEXOLE DIHYDROCHLORIDE Inactive MIRTAZAPINE 15 MG ORAL TABLET 1/2 tab by mouth at bedtime. 03/13 MIRTAZAPINE 15 MG ORAL TABLET 199144 MIRTAZAPINE In active DIFLUCAN 100 MG ORAL TABLET 1 tablet by mouth daily X 3 DAYS 201 04/09/01 DIFLUCAN 100 MG ORAL TABLET 896210 FLUCONAZOLE Inac tive DIFLUCAN 100 MG ORAL TABLET 1 tablet by mouth every other da y for 2 doses DIFLUCAN 100 MG ORAL TABLET 244452 FLUCONAZOLE Inactive CEFTIN 250 MG ORAL TABLET 1 tablet twice daily x 7 days CEFTIN 250 MG ORAL TABLET CEFUROXIME AXETIL Inactive CYMBALTA 30 MG ORAL CAPSULE DELAYED RELEASE PARTICLES 1 cap by mouth daily with 60mg CYMBALTA 30 MG ORAL CAPSULE DELAYED RELEASE PARTICLES 335777 DULOXETINE HCL Inactive CYMBALTA 60 MG ORAL CAPSULE DELAYED RELEASE PARTICLES Take 1 tablet by mouth daily CYMBALTA 60 MG ORAL CAPSULE DELAYED RELEA SE PARTICLES 645584 DULOXETINE HCL Inactive FOSAMAX 70 MG ORAL TABLET 1 po qweek. Take 30min prio r to first food/drink. Avoid lying down x 1 hour. FOSAMAX 70 MG ORAL TA BLET 524521 ALENDRONATE SODIUM Inactive DIFLUCAN 100 MG ORAL TABLET 1 tablet by mouth daily 20 19/08/26 DIFLUCAN 100 MG ORAL TABLET 914918 FLUCONAZOLE Inactive PREDNISONE 20 MG ORAL TABLET 1 tab twice daily for 3 d ay, then one daily for three days PREDNISONE 20 MG ORAL TABLET 140301 PREDNIS ONE Inactive PROAIR HFA 108 (90 BASE) MCG/ACT INHALATION AEROSOL SO LUTION 1 puff every 6 hours as needed PROAIR HFA 108 (90 B ASE) MCG/ACT INHALATION AEROSOL SOLUTION ALBUTEROL SULFATE Inactive MECLIZINE HCL 25 MG ORAL TABLET one tab po qday prn dizziness 20 17/09/06 MECLIZINE HCL 25 MG ORAL TABLET 028398 MECLIZINE HCL Inactive PREDNISONE 20 MG ORAL TABLET 1 tablet by mouth twice d aily for 3 days, then 1 tablet daily for 3 days PREDNISONE 20 MG ORAL TA BLET 578984 PREDNISONE Inactive DIFLUCAN 100 MG ORAL TABLET 1 tablet by mouth daily 20 20/06/06 DIFLUCAN 100 MG ORAL TABLET 717244 FLUCONAZOLE Inactive BACTRIM DS 800-160 MG ORAL TABLET 1 tab by mouth twice daily 201 03/03/23 BACTRIM DS 800-160 MG ORAL TABLET 195022 TRIMETHOPRIM-SULFAMETHOXAZOLE Inactive ZITHROMAX 250 MG ORAL TABLET 2 po today, then 1 po q days 2-5 20 15/02/10 ZITHROMAX 250 MG ORAL TABLET 193737 AZITHROMYCIN [place] ctive BACTRIM DS 800-160 MG ORAL TABLET [...] a day AMOXICILLIN 500 MG ORAL CAPSULE 306322 AMOXICILLIN Inactive ZITHROMAX 250 MG ORAL TABLET 2 po today, then 1 po q days 2-5 20 20/04/28 ZITHROMAX 250 MG ORAL TABLET 293459 AZITHROMYCIN Mayela ctive DIFLUCAN 100 MG ORAL [...] -- NO DECISION MADE DURABLE POWER OF AIRPORT PLANNER FOR HEALTHCARE DISCUSED WITH PATIENT -- FULL [...] sium - Chemistry sodium, serum 141 mmol/L 000-943 5543/01/26 carbon dioxide, venous blood 29.5 mmol/L 21.0-32 [...] mg/dL Negative RBC, urine, dipstick Trace-intact Negative protein, total [...] 1.015 1.000-1.030 pH, urine, semiquantitative 7.0 5.0-8.5 pH, urine, semiquantitative 7.0 5.0-8.5 specific gravity, urine 1.010 1.000-1.030 appearance, urine Clear Clear urine color Yellow Colorless;Lightyellow;St raw;Yellow urobilinogen, urine, semiquantitative (dipstick) 0.2 E .U./dL Normal leukocyte esterase, urine, by dipstick Negative Negative nitrite, urine, semiquantitative Negative Neg ative glucose, urine, semiquantitative Negative Neg ative ketones, urine, by test strip Negative Negati ve bilirubin, urine Negative Negative Office Visit: 3 MO F/U - Basic [...] mg/dL Encounters Code Encounter Date Provider Facility CPT-17439 [id number] Vst-Est Level IV 10:41:41 C BRIDGET Sherman MD [facility] CPT-24407 [id number] Vst-Est Level III 09:40:56 CDT Tesfaye Sherman MD [facility] CPT-74499 Level 4 Est. Patient 22:18:12 CDT Tesfaye pearson MD [facility] CPT-35711 Level 4 Est. Patient 14:44:33 BULLET CHARGING MACHINE OPERATOR Tesfaye pearson MD [facility] CPT-75769 Level 4 Est. Patient 13:55:29 BULLET CHARGING MACHINE OPERATOR Tesfaye pearson MD [facility] CPT-83591 Level 4 Est. Patient 17:07:34 BULLET CHARGING MACHINE OPERATOR Tesfaye pearson MD [facility] CPT-48469 Level 4 Est. Patient 13:56:54 CDT Tesfaye pearson MD [facility] CPT-91570 Level 4 Est. Patient 13:24:25 CDT Chelsea sanz APRN [facility] CPT-75932 Level 4 Est. Patient 09:14:56 CDT Tesfaye pearson MD [facility]-62399 Level 4 Est. Patient 18:40:25 BULLET CHARGING MACHINE OPERATOR Tesfaye pearson MD [facility] CPT-00390 Level 4 Est. Patient 18:13:07 BULLET CHARGING MACHINE OPERATOR Tesfaey pearson MD [facility] CPT-88873 Level 3 Est. Patient 10:46:32 CDT Rj cotto DO [facility] CPT-18554 Level 4 Est. Patient 20:19:25 CDT Tesfaye pearson MD [facility] CPT-58968 Level 3 Est. Patient 09:07:31 CDT Tesfaye pearson MD [facility] CPT-78070 Level 4 Est. Patient 13:12:56 CDT Tesfaye pearson MD [facility] CPT-93326 Level 4 Est. Patient 21:24:55 BULLET CHARGING MACHINE OPERATOR Tesfaye pearson MD [facility] CPT-59959 Level 3 Est. Patient 13:45:04 BULLET CHARGING MACHINE OPERATOR Tesfaye pearson MD [facility] CPT-49607 Level 4 Est. Patient 13:50:45 CDT Tesfaye pearson MD [facility] CPT-92105 Level 3 Est. Patient 10:16:10 CDT Tesfaye pearson MD [facility] CPT-22351 Level 3 Est. Patient 16:36:07 BULLET CHARGING MACHINE OPERATOR Kayla jameson MD [facility] CPT-74648 Level 4 Est. Patient 16:00:14 BULLET CHARGING MACHINE OPERATOR Tesfaye pearson MD [facility] CPT-59227 Level 4 Est. Patient 11:02:24 BULLET CHARGING MACHINE OPERATOR Tesfaye pearson MD [facility] CPT-78810 Level 3 Est. Patient 20:21:43 BULLET CHARGING MACHINE OPERATOR Kayla jameson MD [facility] CPT-08613 Level 3 Est. Patient 13:27:28 BULLET CHARGING MACHINE OPERATOR Kayla jameson MD [facility] CPT-59373 Level 4 Est. Patient 15:57:17 BULLET CHARGING MACHINE OPERATOR Tesfaye pearson MD [facility] CPT-95895 Level 3 New Patient 13:25:47 CDT Tesfaye kidd MD [facility] CPT-62000 Level 3 New Patient 17:22:21 CDT J John angel MD [facility] Procedures Code Procedure Name Date Entry Date Standard Desc ription CPT-G0439 Subsequent Annual Wellness Exam 22:18:11 CDT CPT-15199 Bone Density - XRAY USE ONLY 11:43:58 CDT 2 CPT-87207 Bone Density - XRAY USE ONLY 10:05:16 CDT 2 CPT-37017 Prv Med New Pt 40-64 yrs 18:19:25 CDT 2016 CPT-08923 Foot, right, comp min 3V - XRAY USE ONLY 10:38:34 CDT CPT-G0439 Subsequent Annual Wellness Exam 13:55:04 CDT CPT-G0438 Initial Annual Wellness Exam 11:23:17 CD T CPT-J2930 Solu Medrol 125 mg (Methyl Prednisolone Sodium Succinate) 17:29:12 BULLET CHARGING MACHINE OPERATOR CPT-83931 Abx/Therapy Injection 17:29:11 BULLET CHARGING MACHINE OPERATOR CPT-J2930 Solu Medrol 125 mg (Methyl Prednisolone Sodium Succinate) 12:34:38 BULLET CHARGING MACHINE OPERATOR CPT-J3420 Vitamin B12 1000mcg (Cyanocobalamin) 09:12:55 CDT CPT-J3420 Vitamin B12 1000mcg (Cyanocobalamin) 16:28:06 BULLET CHARGING MACHINE OPERATOR CPT-18499 Venipuncture Draw Fee 08:39:53 CDT CPT-J3420 Vitamin B12 1000mcg (Cyanocobalamin) 08:46:22 CDT CPT-55698 Abx/Therapy Injection 08:46:22 CDT CPT-J3420 Vitamin B12 1000mcg (Cyanocobalamin) 08:41:26 CDT CPT-77874 Abx/Therapy Injection 08:41:26 CDT CPT-J3420 Vitamin B12 1000mcg (Cyanocobalamin) 08:57:15 CDT CPT-10776 Abx/Therapy Injection 08:57:15 CDT CPT-J3420 Vitamin B12 1000mcg (Cyanocobalamin) 10:59:03 CDT CPT-36661 Abx/Therapy Injection 10:59:03 CDT CPT-J3420 Vitamin B12 1000mcg (Cyanocobalamin) 15:05:39 CDT CPT-92459 Abx/Therapy Injection 15:05:39 CDT CPT-J3420 Vitamin B12 1000mcg (Cyanocobalamin) 13:50:45 CDT CPT-J3420 Vitamin B12 1000mcg (Cyanocobalamin) 08:48:55 CDT CPT-93758 Abx/Therapy Injection 08:48:55 CDT CPT-J3420 Vitamin B12 1000mcg (Cyanocobalamin) 09:14:54 CDT CPT-76929 Abx/Therapy Injection 09:14:54 CDT CPT-J3420 Vitamin B12 1000mcg (Cyanocobalamin) 09:06:06 CDT CPT-02994 Abx/Therapy Injection 09:06:06 CDT CPT-J3420 Vitamin B12 1000mcg (Cyanocobalamin) 09:49:14 CDT CPT-42823 Abx/Therapy Injection 09:49:14 CDT CPT-J3420 Vitamin B12 1000mcg (Cyanocobalamin) 09:10:30 BULLET CHARGING MACHINE OPERATOR CPT-62519 Abx/Therapy Injection 09:10:30 BULLET CHARGING MACHINE OPERATOR CPT-J3420 Vitamin B12 1000mcg (Cyanocobalamin) 09:11:07 BULLET CHARGING MACHINE OPERATOR CPT-44470 Abx/Therapy Injection 09:11:07 BULLET CHARGING MACHINE OPERATOR CPT-J3420 Vitamin B12 1000mcg (Cyanocobalamin) 09:57:03 BULLET CHARGING MACHINE OPERATOR CPT-81694 Abx/Therapy Injection 09:57:03 BULLET CHARGING MACHINE OPERATOR CPT-J3420 Vitamin B12 1000mcg (Cyanocobalamin) 09:23:21 BULLET CHARGING MACHINE OPERATOR CPT-43760 Abx/Therapy Injection 09:23:21 BULLET CHARGING MACHINE OPERATOR CPT-59488 Urine Dip (Floor Use Only) 20:21:44 BULLET CHARGING MACHINE OPERATOR 201 02/12/11 CPT-70878 UA Dip Auto (Floor Use Only) 10:04:39 BULLET CHARGING MACHINE OPERATOR 2 CPT-39937 Urine Dip (Floor Use Only) 13:27:28 BULLET CHARGING MACHINE OPERATOR 201 02/12/01 CPT-11444 Bladder Scan 13:27:28 BULLET CHARGING MACHINE OPERATOR CPT-00930 Abd single AP View 14:30:51 BULLET CHARGING MACHINE OPERATOR CPT-OV Office Visit 10:15:43 CDT CPT-19387 Urine Dip (Floor Use Only) 17:22:21 CDT 201 02/09/02 CPT-63587 Bladder Scan 17:22:21 CDT
--- NOTE | 2020-05-05 11:42 | Diagnostic Imaging Report ---
Indication: Left shoulder injury, pain. Comparison: None. Findings: 3 views of the left shoulder demonstrate no fracture or dislocation. Articular surfaces are age-appropriate. No osseous lesion is seen. Impression: No fracture or dislocation. Dictated by: Dictated on workstation # [id number]
--- OUTSIDE RECORDS SUMMARY | 2020-05-05 11:42 | XMS REPORT | Clinical Summary ---
Author Author Talon, Jeri Wood Organization [facility] Address Unknown Phone Unavailable Allergies, Adverse Reactions, Alerts Allergy Name Reaction Description Start Date Severity Status Pr ovider NITROFURANTION Critical Active Tesfaye kidd MD XANAX Critical Active Kayla Shaw on SAVELLFer Critical Active Kayla Shaw on NUVIGIIsrael Critical Active Kayla Shaw on NAPROXLINNEA MEDLEY Critical Active Kayla Edward son BENADRYL Critical Active Kayla Shaw on ATIVAN Critical Active Kayla tate MD Conditions [...] Sherman MD Abnormal involuntary movements Hyperlipidemia 272.4 Active Tesfaye Sherman MD Other and unspecified hyperlipidemia ANXIETY 300.00 Active Tesfaye Sherman MD Anxiety state, [...] deficiencies Dysuria 788.1 Active Adriana Arredondo Dysuria Medication List Medication Instructions Start Date Stop Date Generic Name NDC Status Provider Patient Instruction VITAMIN D3 2000 UNIT TABS 1 daily, for vitamin D deficiency 2014 CHOLECALCIFEROL 96255851444 No Longer Active Tesfaye Sherman MD Active TIZANIDINE HCL 2 MG TABS take 1-2 tablet by mouth at bedtime at 9pm PRN TIZANIDINE HCL 46712488627 Active Tesfaye Owusu Active ZITHROMAX 250 MG TAB 2 po today, then 1 po q days 2-5 AZITHROMYCIN 57012849740 No Longer Active Tesfaye Sherman MD Acti ve BACTRIM DS 800-160 MG TAB 1 tab by mouth twice daily 2 TRIMETHOPRIM-SULFAMETHOXAZOLE 79720518048 No Longer Active Tesfaye Sherman MD Active PRELIEF 340 (65-50) MG (CA-P) ORAL TABS CALCIUM GLYCEROPHOSPHATE 07501364718 Active Tesfaye Sherman MD Active [facility] NIACIN FLUSH FREE 400-100 MG CAPS 1 daily NIACIN-INOSITOL 87604049042 Active Kayla Cooper MD Active DIFLUCAN 150 MG TABS 1 qd FLUCONAZOLE 92761 752973 No Longer Active Kayla Cooper MD Active FLUTICASONE PROPIONATE 50 MCG/ACT SUSP 1 spray each nostril twice daily FLUTICASONE PROPIONATE 38884234671 Active Tesfaye armenta MD Active LOVASTATIN 20 MG TABS Take 1 tablet by mouth daily LOVASTATIN 40372822534 No Longer Active Tesfaye Sherman MD Active MELOXICAM 7.5 MG TABS 1 tablet by mouth daily M ELOXICAM 26383827237 No Longer Active Tesfaye Sherman MD Active GABAPENTIN 300 MG CAPS Take two tablets by mouth every evening GABAPENTIN 70976066232 No Longer Active Edith Burch MD Active TRIMETHOPRIM 100 MG TABS 1/2 qd TRIMETHOPRIM 7236866 3001 Active Kayla Cooper MD Active OXYCODONE-ACETAMINOPHEN 5-325 MG TABS Take one tablet by mouth every 6 hours as needed. Max 12 tabs/day as needed OXYCODONE-ACETAMINOP HEN 67566320362 Active Tesfaye Sherman MD Active CYMBALTA 60 MG CPEP Take 1 tablet by mouth daily D ULOXETINE HCL 00866092422 Active Kayla Cooper MD Active CLONAZEPAM 0.5 MG TABS Take one tablet in the morning and 1.5 table t at 7pm CLONAZEPAM 40421295036 Active Kayla Cooper MD Active CETIRIZINE HCL 5 MG TABS Take 1 tablet by mouth daily CETIRIZINE HCL 54795713283 Active Kayla Cooper MD Active BACLOFEN 10 MG TABS Take one tablet by mouth three times a day BACLOFEN 11780773800 Active Kayla Cooper MD Active GABAPENTIN 300 MG CAPS Take two tablets by mouth every evening GABAPENTIN 300 MG CAPS 216380 GABAPENTIN Inactive MELOXICAM 7.5 MG TABS 1 tablet by mouth daily MELOXICAM 7.5 MG TABS 969467 MELOXICAM Inactive LOVASTATIN 20 MG TABS Take 1 tablet by mouth daily 201 02/12/20 LOVASTATIN 20 MG TABS 335143 LOVASTATIN Inactive DIFLUCAN 150 MG TABS 1 qd DIFLUCAN 150 MG T ABS 796282 FLUCONAZOLE Inactive VITAMIN D3 2000 UNIT TABS 1 daily, for vitamin D deficiency 2014 VITAMIN D3 2000 UNIT TABS CHOLECALCIFEROL Inacti ve BACTRIM DS 800-160 MG TAB 1 tab by mouth twice daily 2 BACTRIM DS 800-160 MG TAB TRIMETHOPRIM-SULFAMETHOXAZOLE Inac tive ZITHROMAX 250 MG TAB 2 po today, then 1 po q days 2-5 ZITHROMAX 250 MG TAB 5167366 AZITHROMYCIN Inactive Advance Directives Directive Description Start Date PERMISSION TO SHARE Vital Signs Date Name Value Unit Range Description blood pressure, diastolic - 8462-4 85 mm[Hg] BP lyon blood pressure, systolic - 8480-6 143 mm[Hg] BP sys pulse rate E&M - 8867-4 82 /min H eart rate temperature E&M 98.9 [degF] Body temp erature weight E&M - 3141-9 111 [lb_av] Weigh t Measured blood pressure, diastolic - 8462-4 73 mm[Hg] BP lyon blood pressure, systolic - 8480-6 120 mm[Hg] BP sys pulse rate E&M - 8867-4 80 /min H eart rate temperature E&M 97.8 [degF] Body temp erature weight E&M - 3141-9 110 [lb_av] Weigh t Measured blood pressure, diastolic - 8462-4 70 mm[Hg] BP lyon blood pressure, systolic - 8480-6 108 mm[Hg] BP sys pulse rate E&M - 8867-4 70 /min H eart rate temperature E&M 98.5 [degF] Body temp erature weight E&M - 3141-9 110 [lb_av] Weigh t Measured blood pressure, diastolic - 8462-4 88 mm[Hg] BP lyon blood pressure, systolic - 8480-6 137 mm[Hg] BP sys pulse rate E&M - 8867-4 79 /min H eart rate temperature E&M 99.0 [degF] Body temp erature weight E&M - 3141-9 110 [lb_av] Weigh t Measured blood pressure, diastolic - 8462-4 83 mm[Hg] BP lyon blood pressure, systolic - 8480-6 112 mm[Hg] BP sys pulse rate E&M - 8867-4 77 /min H eart rate temperature E&M 98.7 [degF] Body temp erature weight E&M - 3141-9 110 [lb_av] Weigh t Measured blood pressure, diastolic - 8462-4 73 mm[Hg] BP lyon blood pressure, systolic - 8480-6 117 mm[Hg] BP sys pulse rate E&M - 8867-4 71 /min H eart rate temperature E&M 99.1 [degF] Body temp erature weight E&M - 3141-9 111.6 [lb_av] Weigh t Measured blood pressure, diastolic - 8462-4 86 mm[Hg] BP lyon blood pressure, systolic - 8480-6 131 mm[Hg] BP sys pulse rate E&M - 8867-4 99 /min H eart rate temperature E&M 98.7 [degF] Body temp erature weight E&M - 3141-9 110 [lb_av] Weigh t Measured blood pressure, diastolic - 8462-4 114 mm[Hg] BP lyon blood pressure, systolic - 8480-6 181 mm[Hg] BP sys pulse rate E&M - 8867-4 101 /min H eart rate temperature E&M 99.2 [degF] Body temp erature weight E&M - 3141-9 107.4 [lb_av] Weigh t Measured blood pressure, diastolic - 8462-4 95 mm[Hg] BP lyon blood pressure, systolic - 8480-6 154 mm[Hg] BP sys pulse rate E&M - 8867-4 76 /min H eart rate temperature E&M 97.1 [degF] Body temp erature weight E&M - 3141-9 110 [lb_av] Weigh t Measured blood pressure, diastolic - 8462-4 84 mm[Hg] BP lyon blood pressure, systolic - 8480-6 148 mm[Hg] BP sys height E&M - 8302-2 62 [in_us] Bdy h eight pulse rate E&M - 8867-4 72 /min H eart rate temperature E&M 98.2 [degF] Body temp erature weight E&M - 3141-9 110 [lb_av] Weigh t Measured Diagnostic Results Date Name Value Unit Range Description Lab Report: Comp. Metabolic Panel, CBC, Lipid Panel - Chemistry sodium, serum 138 mmol/L 531-813 2350/10/20 potassium, serum 4.5 mmol/L 3.5-5.2 chloride, serum 98 mmol/L 98-107 carbon dioxide, venous blood 28.2 mmol/L 21.0-32 .0 blood glucose 95 mg/dL 65-110 urea nitrogen, blood 6 mg/dL 7-18 creatinine, serum 0.70 mg/dL 0.60-1.30 alanine aminotransferase (SGPT), serum 15 U/L 12-78 aspartate aminotransferase (SGOT), serum 17 U/L 15-37 alkaline phosphatase, serum 90 U/L 50-136 calcium, serum 9.8 mg/dL 8.5-10.1 bilirubin, serum, total 0.90 mg/dL 0.00-1.00 cholesterol, serum 237 mg/dL 239-400 0798/10/20 triglyceride, serum, fasting 71 mg/dL 30-200 HDL cholesterol, serum 54 mg/dL 32-96 LDL cholesterol, serum 169 mg/dL 0-130 Lab Report: Comp. Metabolic Panel, CBC, Lipid Panel - Hematology leukocyte count, blood 7.6 10^3/MM^3 10*3/mm3 4.6-10.2 erythrocyte (RBC) count 4.60 10^6/MM^3 10*6/mm3 4.04-5.4 8 hemoglobin, blood 15.6 g/dL 12.0-16.0 hematocrit, blood 45.5 % 36.0-46.0 mean corpuscular volume, RBC 99 fL 80-97 mean corpuscular hemoglobin, RBC 34.0 pg 27. 0-31.2 mean corpuscular hemoglobin concentration, RBC 34.4 G/DL % 31.8-35.4 red blood cell distribution width 12.3 % 11 .6-14.8 platelet count 390 10^3/MM^3 10*3/mm3 142-424 Lab Report: Lipid Panel - Chemistry cholesterol, serum 221 mg/dL 881-113 7912/01/23 triglyceride, serum, fasting 81 mg/dL 30-200 HDL cholesterol, serum 55 mg/dL 32-96 LDL cholesterol, serum 150 mg/dL 0-130 Lab Report: UADIP W/MICRO, AUTO - Chemis try protein, total urine random Negative mg/dL Negative RBC, urine, dipstick Negative Negative protein, total urine random Negative mg/dL Negative RBC, urine, dipstick Trace Negative protein, total urine random Negative mg/dL Negative RBC, urine, dipstick Negative Negative Lab Report: UADIP W/MICRO, AUTO - Urinal ysis urobilinogen, urine, semiquantitative (dipstick) 0.2 Normal leukocyte esterase, urine, by dipstick Negative Negative nitrite, urine, semiquantitative Negative Neg ative glucose, urine, semiquantitative Negative Neg ative ketones, urine, by test strip Negative Negati ve bilirubin, urine Negative Negative urine color Yellow Colorless;Lightyellow;St raw;Yellow appearance, urine Clear Clear specific gravity, urine 1.010 1.000-1.030 pH, urine, semiquantitative 8.0 5.0-8.5 urobilinogen, urine, semiquantitative (dipstick) 0.2 Normal leukocyte esterase, urine, by dipstick Negative Negative nitrite, urine, semiquantitative Negative Neg ative glucose, urine, semiquantitative Negative Neg ative ketones, urine, by test strip Negative Negati ve bilirubin, urine Negative Negative urine color Yellow Colorless;Lightyellow;St raw;Yellow appearance, urine Clear Clear specific gravity, urine 1.010 1.000-1.030 pH, urine, semiquantitative 6.5 5.0-8.5 urobilinogen, urine, semiquantitative (dipstick) 0.2 Normal leukocyte esterase, urine, by dipstick Negative Negative nitrite, urine, semiquantitative Negative Neg ative glucose, urine, semiquantitative Negative Neg ative ketones, urine, by test strip Negative Negati ve bilirubin, urine Negative Negative urine color Yellow Colorless;Lightyellow;St raw;Yellow appearance, urine Clear Clear specific gravity, urine <=1.005 1.000-1.030 pH, urine, semiquantitative 7.5 5.0-8.5 Office Visit: 1 month recheck - Chemistr y cholesterol, target level 200 mg/dL LDL target level 160 mg/dL HDL cholesterol, serum, target level 40 mg/dL triglyceride, target level 150 mg/dL Office Visit: 3 mo f/u recurrent UTIs - Chemistry RBC, urine, dipstick 1+ Office Visit: 3 mo f/u recurrent UTIs - Urinalysis ketones, urine, by test strip negative bilirubin, urine negative glucose, urine, semiquantitative negative pH, urine, semiquantitative 7 specific gravity, urine 1.000 urinalysis, routine Clean Catch urine color yellow appearance, urine clear leukocyte esterase, urine, by dipstick negative nitrite, urine, semiquantitative negative urobilinogen, urine, semiquantitative (dipstick) 0.2 protein, urine, semiquantitative (dipstick) negative Office Visit: f/u hydrodistention - Chem istry protein, total urine random negative mg/dL RBC, urine, dipstick negative Office Visit: f/u hydrodistention - Urin alysis ketones, urine, by test strip negative bilirubin, urine negative glucose, urine, semiquantitative negative pH, urine, semiquantitative 5 specific gravity, urine 1.000 urine color yellow appearance, urine clear leukocyte esterase, urine, by dipstick negative nitrite, urine, semiquantitative negative urobilinogen, urine, semiquantitative (dipstick) 0.2 protein, urine, semiquantitative (dipstick) negative urinalysis, routine Clean Catch Office Visit: Frequent UTI - Chemistry protein, total urine random negative mg/dL RBC, urine, dipstick negative Office Visit: Frequent UTI - Urinalysis ketones, urine, by test strip negative bilirubin, urine negative glucose, urine, semiquantitative negative pH, urine, semiquantitative 5 specific gravity, urine 1.000 urinalysis, routine Clean Catch urine color yellow appearance, urine clear leukocyte esterase, urine, by dipstick negative nitrite, urine, semiquantitative negative urobilinogen, urine, semiquantitative (dipstick) 0.2 protein, urine, semiquantitative (dipstick) negative Office Visit: UTI - Chemistry RBC, urine, dipstick negative Office Visit: UTI - Urinalysis ketones, urine, by test strip negative bilirubin, urine negative glucose, urine, semiquantitative negative pH, urine, semiquantitative 6.5 specific gravity, urine 1.005 urinalysis, routine Clean Catch urine color yellow appearance, urine clear leukocyte esterase, urine, by dipstick negative nitrite, urine, semiquantitative negative urobilinogen, urine, semiquantitative (dipstick) 0.2 protein, urine, semiquantitative (dipstick) negative Encounters Code Encounter Date Provider Facility CPT-10309 Level 4 Est. Patient 13:50:45 CDT Tesfaye pearson MD [facility] CPT-78759 Level 3 Est. Patient 10:16:10 CDT Tesfaye pearson MD [facility] CPT-55206 Level 3 Est. Patient 16:36:07 CODY jameson MD [facility] CPT-86380 Level 4 Est. Patient 16:00:14 MARKETING INTELLIGENCE MANAGER Tesfaye pearson MD [facility] CPT-62949 Level 4 Est. Patient 11:02:24 MARKETING INTELLIGENCE MANAGER Tesfaye pearson MD [facility] CPT-09098 Level 3 Est. Patient 20:21:43 MARKETING INTELLIGENCE MANAGER Kayla jameson MD [facility] CPT-91355 Level 3 Est. Patient 13:27:28 MARKETING INTELLIGENCE MANAGER Kayla jameson MD [facility] CPT-24882 Level 4 Est. Patient 15:57:17 MARKETING INTELLIGENCE MANAGER Tesfaye pearson MD [facility] -[facility] CPT-90880 Level 3 New Patient 13:25:47 CDT Tesfaye kidd MD [facility] CPT-08657 Level 3 New Patient 17:22:21 CDT J John angel MD [facility] Procedures Code Procedure Name Date Entry Date Standard Desc ription CPT-J3420 Vitamin B12 1000mcg (Cyanocobalamin) 15:05:39 CDT CPT-19812 Abx/Therapy Injection 15:05:39 CDT CPT-J3420 Vitamin B12 1000mcg (Cyanocobalamin) 13:50:45 CDT CPT-J3420 Vitamin B12 1000mcg (Cyanocobalamin) 08:48:55 CDT CPT-29871 Abx/Therapy Injection 08:48:55 CDT CPT-J3420 Vitamin B12 1000mcg (Cyanocobalamin) 09:14:54 CDT CPT-08475 Abx/Therapy Injection 09:14:54 CDT CPT-J3420 Vitamin B12 1000mcg (Cyanocobalamin) 09:06:06 CDT CPT-82161 Abx/Therapy Injection 09:06:06 CDT CPT-J3420 Vitamin B12 1000mcg (Cyanocobalamin) 09:49:14 CDT CPT-44388 Abx/Therapy Injection 09:49:14 CDT CPT-J3420 Vitamin B12 1000mcg (Cyanocobalamin) 09:10:30 MARKETING INTELLIGENCE MANAGER CPT-69786 Abx/Therapy Injection 09:10:30 MARKETING INTELLIGENCE MANAGER CPT-J3420 Vitamin B12 1000mcg (Cyanocobalamin) 09:11:07 MARKETING INTELLIGENCE MANAGER CPT-52630 Abx/Therapy Injection 09:11:07 MARKETING INTELLIGENCE MANAGER CPT-J3420 Vitamin B12 1000mcg (Cyanocobalamin) 09:57:03 MARKETING INTELLIGENCE MANAGER CPT-25181 Abx/Therapy Injection 09:57:03 MARKETING INTELLIGENCE MANAGER CPT-J3420 Vitamin B12 1000mcg (Cyanocobalamin) 09:23:21 MARKETING INTELLIGENCE MANAGER CPT-20117 Abx/Therapy Injection 09:23:21 MARKETING INTELLIGENCE MANAGER CPT-30040 Urine Dip (Floor Use Only) 20:21:44 MARKETING INTELLIGENCE MANAGER 201 02/12/11 CPT-02763 UA Dip Auto (Floor Use Only) 10:04:39 MARKETING INTELLIGENCE MANAGER 2 CPT-15586 Urine Dip (Floor Use Only) 13:27:28 MARKETING INTELLIGENCE MANAGER 201 02/12/01 CPT-44464 Bladder Scan 13:27:28 MARKETING INTELLIGENCE MANAGER CPT-36969 Abd single AP View 14:30:51 MARKETING INTELLIGENCE MANAGER CPT-OV Office Visit 10:15:43 CDT CPT-02858 Urine Dip (Floor Use Only) 17:22:21 CDT 201 02/09/02 CPT-73674 Bladder Scan 17:22:21 CDT
--- OUTSIDE RECORDS SUMMARY | 2020-05-05 11:42 | XMS REPORT | Clinical Summary ---
Author Author Talon, Jeri Wood Organization [facility] Address Unknown Phone Unavailable Allergies, Adverse [...] daily, for vitamin D deficiency 2014 CHOLECALCIFEROL 54564146147 No Longer Active Tesfaye Sherman MD Active TIZANIDINE HCL 2 MG TABS take 1-2 tablet by mouth at bedtime at 9pm PRN TIZANIDINE HCL 01652748841 Active Tesfaye Owusu Active ZITHROMAX 250 MG TAB 2 po today, then 1 po q days 2-5 AZITHROMYCIN 17055318715 No Longer Active Tesfaye Sherman MD Acti ve BACTRIM DS 800-160 MG TAB 1 tab by mouth twice daily 2 TRIMETHOPRIM-SULFAMETHOXAZOLE 68328315016 No Longer Active Tesfaye Sherman MD Active PRELIEF 340 (65-50) MG (CA-P) ORAL TABS CALCIUM GLYCEROPHOSPHATE 22739716512 Active Tesfaye Sherman MD Active [facility] NIACIN FLUSH FREE 400-100 MG CAPS 1 daily NIACIN-INOSITOL 72807504602 Active Kayla Cooper MD Active DIFLUCAN 150 MG TABS 1 qd FLUCONAZOLE 45929 978789 No Longer Active Kayla Cooper MD Active FLUTICASONE PROPIONATE 50 MCG/ACT SUSP 1 spray each nostril twice daily FLUTICASONE PROPIONATE 27570519940 Active Tesfaye armenta MD Active LOVASTATIN 20 MG TABS Take 1 tablet by mouth daily LOVASTATIN 11366438888 No Longer Active Tesfaye Sherman MD Active MELOXICAM 7.5 MG TABS 1 tablet by mouth daily M ELOXICAM 74289891550 No Longer Active Tesfaye Sherman MD Active GABAPENTIN 300 MG CAPS Take two tablets by mouth every evening GABAPENTIN 13579058883 No Longer Active Edith Burch MD Active TRIMETHOPRIM 100 MG TABS 1/2 qd TRIMETHOPRIM 0058053 3001 Active Kayla Cooper MD Active OXYCODONE-ACETAMINOPHEN 5-325 MG TABS Take one tablet by mouth every 6 hours as needed. Max 12 tabs/day as needed OXYCODONE-ACETAMINOP HEN 10196951573 Active Tesfaye Sherman MD Active CYMBALTA 60 MG CPEP Take 1 tablet by mouth daily D ULOXETINE HCL 33238418586 Active Kayla Cooper MD Active CLONAZEPAM 0.5 MG TABS Take one tablet in the morning and 1.5 table t at 7pm CLONAZEPAM 82690576840 Active Kayla Cooper MD Active CETIRIZINE HCL 5 MG TABS Take 1 tablet by mouth daily CETIRIZINE HCL 01752927091 Active Kayla Cooper MD Active BACLOFEN 10 MG TABS Take one tablet by mouth three times a day BACLOFEN 62620431210 Active Kayla Cooper MD Active GABAPENTIN 300 MG CAPS Take two tablets by mouth every evening GABAPENTIN 300 MG CAPS 111328 GABAPENTIN Inactive MELOXICAM 7.5 MG TABS 1 tablet by mouth daily MELOXICAM 7.5 MG TABS 688658 MELOXICAM Inactive LOVASTATIN 20 MG TABS Take 1 tablet by mouth daily 201 02/12/20 LOVASTATIN 20 MG TABS 069438 LOVASTATIN Inactive DIFLUCAN 150 MG TABS 1 qd DIFLUCAN 150 MG T ABS 164112 FLUCONAZOLE Inactive VITAMIN D3 2000 UNIT TABS 1 daily, for vitamin D deficiency 2014 VITAMIN D3 2000 UNIT TABS CHOLECALCIFEROL Inacti ve BACTRIM DS 800-160 MG TAB 1 tab by mouth twice daily 2 BACTRIM DS 800-160 MG TAB TRIMETHOPRIM-SULFAMETHOXAZOLE Inac tive ZITHROMAX 250 MG TAB 2 po today, then 1 po q days 2-5 ZITHROMAX 250 MG TAB 5711562 AZITHROMYCIN Inactive Advance Directives Directive Description Start [...] Panel - Chemistry sodium, serum 138 mmol/L 667-901 1959/10/20 potassium, serum 4.5 mmol/L 3.5-5.2 chloride, serum [...] 0.90 mg/dL 0.00-1.00 cholesterol, serum 237 mg/dL 505-508 3149/10/20 triglyceride, serum, fasting 71 mg/dL 30-200 HDL [...] Panel - Chemistry cholesterol, serum 221 mg/dL 134-929 7263/01/23 triglyceride, serum, fasting 81 mg/dL 30-200 HDL [...] negative Encounters Code Encounter Date Provider Facility CPT-52003 Level 4 Est. Patient 13:50:45 CDT Tesfaye pearson MD [facility] CPT-36530 Level 3 Est. Patient 10:16:10 CDT Tesfaye pearson MD [facility] CPT-14523 Level 3 Est. Patient 16:36:07 CODY jameson MD [facility] CPT-75865 Level 4 Est. Patient 16:00:14 SPRING FORMER Tesfaye pearson MD [facility] CPT-35781 Level 4 Est. Patient 11:02:24 SPRING FORMER Tesfaye pearson MD [facility] CPT-66898 Level 3 Est. Patient 20:21:43 SPRING FORMER Kayla jameson MD [facility] CPT-64873 Level 3 Est. Patient 13:27:28 SPRING FORMER Kayla jameson MD [facility] CPT-29151 Level 4 Est. Patient 15:57:17 SPRING FORMER Tesfaye pearson MD [facility] CPT-18882 Level 3 New Patient 13:25:47 CDT Tesfaye kidd MD [facility] CPT-83048 Level 3 New Patient 17:22:21 CDT J John angel MD [facility] Procedures Code Procedure Name Date Entry Date Standard Desc ription CPT-J3420 Vitamin B12 1000mcg (Cyanocobalamin) 08:41:26 CDT CPT-23552 Abx/Therapy Injection 08:41:26 CDT CPT-J3420 Vitamin B12 1000mcg (Cyanocobalamin) 08:57:15 CDT CPT-10761 Abx/Therapy Injection 08:57:15 CDT CPT-J3420 Vitamin B12 1000mcg (Cyanocobalamin) 10:59:03 CDT CPT-49210 Abx/Therapy Injection 10:59:03 CDT CPT-J3420 Vitamin B12 1000mcg (Cyanocobalamin) 15:05:39 CDT CPT-80906 Abx/Therapy Injection 15:05:39 CDT CPT-J3420 Vitamin B12 1000mcg (Cyanocobalamin) 13:50:45 CDT CPT-J3420 Vitamin B12 1000mcg (Cyanocobalamin) 08:48:55 CDT CPT-65805 Abx/Therapy Injection 08:48:55 CDT CPT-J3420 Vitamin B12 1000mcg (Cyanocobalamin) 09:14:54 CDT CPT-06103 Abx/Therapy Injection 09:14:54 CDT CPT-J3420 Vitamin B12 1000mcg (Cyanocobalamin) 09:06:06 CDT CPT-17414 Abx/Therapy Injection 09:06:06 CDT CPT-J3420 Vitamin B12 1000mcg (Cyanocobalamin) 09:49:14 CDT CPT-54230 Abx/Therapy Injection 09:49:14 CDT CPT-J3420 Vitamin B12 1000mcg (Cyanocobalamin) 09:10:30 SPRING FORMER CPT-82246 Abx/Therapy Injection 09:10:30 SPRING FORMER CPT-J3420 Vitamin B12 1000mcg (Cyanocobalamin) 09:11:07 SPRING FORMER CPT-76564 Abx/Therapy Injection 09:11:07 SPRING FORMER CPT-J3420 Vitamin B12 1000mcg (Cyanocobalamin) 09:57:03 SPRING FORMER CPT-20536 Abx/Therapy Injection 09:57:03 SPRING FORMER CPT-J3420 Vitamin B12 1000mcg (Cyanocobalamin) 09:23:21 SPRING FORMER CPT-55192 Abx/Therapy Injection 09:23:21 SPRING FORMER CPT-88999 Urine Dip (Floor Use Only) 20:21:44 SPRING FORMER 201 02/12/11 CPT-29101 UA Dip Auto (Floor Use Only) 10:04:39 SPRING FORMER 2 CPT-39318 Urine Dip (Floor Use Only) 13:27:28 SPRING FORMER 201 02/12/01 CPT-94486 Bladder Scan 13:27:28 SPRING FORMER CPT-96136 Abd single AP View 14:30:51 SPRING [employer]MER CPT-OV Office Visit 10:15:43 CDT CPT-20948 Urine Dip (Floor Use Only) 17:22:21 CDT 201 02/09/02 CPT-04624 Bladder Scan 17:22:21 CDT
--- OUTSIDE RECORDS SUMMARY | 2020-05-05 11:42 | XMS REPORT | Clinical Summary ---
Author Author Jeri Hanley Organization [facility] [facility] Address Unknown Phone Unavailable Allergies, Adverse Reactions, Alerts Allergy Name Reaction Description Start Date Severity Status Pr ovider PRAMIPEXOLE Critical Active Tesfaye villar MD CEFTIN [...] Entry Date Provider Comment Standard Description Annotate FH Depression V17.0 Active Kayla Cooper MD Family [...] of unspecified site Depression 311 Active Chelsea Barba APRN Depressive disorder, not elsewhere classified Medication List Medication Instructions Start Date Stop Date Generic Name NDC Status Provider Patient Instruction DIFLUCAN 100 MG TAB 1 tablet by mouth daily FLU CONAZOLE [id number] No Longer Active Tesfaye Sherman MD Active BACTRIM DS 800-160 MG TAB 1 tab by mouth twice daily 2 TRIMETHOPRIM-SULFAMETHOXAZOLE 23923310735 No Longer Active Tesfaye Sherman MD Active BACTRIM DS 800-160 MG TAB 1 tab by mouth twice daily 2 TRIMETHOPRIM-SULFAMETHOXAZOLE 40186968527 No Longer Active Tesfaye Sherman MD Active DIFLUCAN 150 MG TAB 1 tablet by mouth daily FLU CONAZOLE 17269815551 No Longer Active Tesfaye Sherman MD Active BACTRIM DS 800-160 MG TAB 1 tab by mouth twice daily 2 TRIMETHOPRIM-SULFAMETHOXAZOLE 61239120140 No Longer Active Tesfaye Sherman MD Active ROPINIROLE HCL 0.25 MG ORAL TABS 1 TAB PO Q HS ROPINIROLE HCL 71590773452 Active Tesfaye Sherman MD Active CYMBALTA 30 MG CPEP 1 cap by mouth daily with 60mg DULOXETINE HCL 31065867959 Active Tesfaye Sherman MD Active CEFTIN 250 MG TAB 1 tablet twice daily x 7 days 11/19 CEFUROXIME AXETIL 17315094714 No Longer Active Tesfaye Sherman MD Acti ve DIFLUCAN 100 MG TABS 1 tablet by mouth every other day for 2 dos es FLUCONAZOLE 67388458547 No Longer Active Tesfaye Sherman MD Active DIFLUCAN 100 MG TAB 1 tablet by mouth daily X 3 DAYS 2 FLUCONAZOLE 70778894115 No Longer Active Rj Moss DO Active MIRTAZAPINE 15 MG ORAL TABS 1/2 tab by mouth at bedtime. MIRTAZAPINE 28847942843 No Longer Active Tesfaye Sherman MD Acti ve BACTRIM DS 800-160 MG TAB 1 tab by mouth twice daily 2 TRIMETHOPRIM-SULFAMETHOXAZOLE 51996004699 No Longer Active Tesfaye Sherman MD Active PRAMIPEXOLE DIHYDROCHLORIDE 0.125 MG ORAL TABS take 1 tablet po qhs for restless leg syndrome. PRAMIPEXOLE DIHYDROCHLORIDE 18307460320 No Longer Active Tesfaye Sherman MD Active MAGNESIUM 400 MG ORAL TABS 1 tab po daily MAGNESI UM 28117262836 Active Chelsea Barba APRN Active SUDAFED 24 HOUR 240 MG ORAL [id number] 1 tab po daily PSEUDOEPHEDRINE HCL 73999300826 Active Chelsea Barba APRN A ctive CETIRIZINE HCL 5 MG TABS Take 1 tablet by mouth daily CETIRIZINE HCL 04709521863 No Longer Active Chelsea Barba APRN Acti ve TRIMETHOPRIM 100 MG TABS 1/2 qd TRIMETHOPRIM 24491717866 No Longer Active Chelsea Barba APRN Active BACTRIM DS 800-160 MG TAB 1 tab by mouth twice daily 2 TRIMETHOPRIM-SULFAMETHOXAZOLE 52142776981 No Longer Active Tesfaye Sherman MD Active BACTRIM DS 800-160 MG TAB 1 tab by mouth twice daily X 10 DAYS 2 TRIMETHOPRIM-SULFAMETHOXAZOLE 33053715611 No Longer Active Umer Sherman MD Active AMOXICILLIN 500 MG CAPS 1 cap by mouth three times a day AMOXICILLIN 39133139814 No Longer Active Adriana Arredondo Active MECLIZINE HCL 25 MG TAB one tab po qday prn dizziness MECLIZINE HCL 80117720891 Active Tesfaye Sherman MD Active B-12 1000 MCG ORAL LOZG 1 tab po daily CYANOCOBAL STANTON 78053415994 Active Tesfaye Sherman MD Active VITAMIN D3 2000 UNIT TABS 1 daily, for vitamin D deficiency 2014 CHOLECALCIFEROL 76292701794 No Longer Active Tesfaye Sherman MD Active TIZANIDINE HCL 2 MG TABS take 1-2 tablet by mouth at bedtime at 9pm PRN TIZANIDINE HCL 63533125220 Active Tesfaye Higgins D Active ZITHROMAX 250 MG TAB 2 po today, then 1 po q days 2-5 AZITHROMYCIN 73326171602 No Longer Active Tesfaye Sherman MD Acti ve BACTRIM DS 800-160 MG TAB 1 tab by mouth twice daily 2 TRIMETHOPRIM-SULFAMETHOXAZOLE 76999936012 No Longer Active Tesfaye Sherman MD Active PRELIEF 340 (65-50) MG (CA-P) ORAL TABS CALCIUM GLYCEROPHOSPHATE 81513214297 Active Tesfaye Sherman MD Active [facility] NIACIN FLUSH FREE 400-100 MG CAPS 1 daily NIACIN-INOSITOL 18003545086 Active Kayla Cooper MD Active DIFLUCAN 150 MG TABS 1 qd FLUCONAZOLE 67217 087511 No Longer Active Kayla Cooper MD Active FLUTICASONE PROPIONATE 50 MCG/ACT SUSP 1 spray each nostril twice daily FLUTICASONE PROPIONATE 80851707261 Active Tesfaye armenta MD Active LOVASTATIN 20 MG TABS Take 1 tablet by mouth daily LOVASTATIN 43378276645 No Longer Active Tesfaye Sherman MD Active MELOXICAM 7.5 MG TABS 1 tablet by mouth daily M ELOXICAM 92730658054 No Longer Active Tesfaye Sherman MD Active GABAPENTIN 300 MG CAPS Take two tablets by mouth every evening GABAPENTIN 57819092396 No Longer Active Edith Burch MD Active OXYCODONE-ACETAMINOPHEN 5-325 MG TABS Take one tablet by mouth every 6 hours as needed. Max 12 tabs/day as needed OXYCODONE-ACETAMINOP HEN 19598633430 Active Tesfaye Sherman MD Active CYMBALTA 60 MG CPEP Take 1 tablet by mouth daily D ULOXETINE HCL 56351520792 Active Kayla Cooper MD Active CLONAZEPAM 0.5 MG TABS Take one tablet in the morning and 1.5 table t at 7pm CLONAZEPAM 30433377187 Active Kayla Cooper MD Active BACLOFEN 10 MG TABS Take one tablet by mouth three times a day BACLOFEN 43234950754 Active J John Cooper MD Active GABAPENTIN 300 MG CAPS Take two tablets by mouth every evening GABAPENTIN 300 MG CAPS 409487 GABAPENTIN Inactive MELOXICAM 7.5 MG TABS 1 tablet by mouth daily MELOXICAM 7.5 MG TABS 626148 MELOXICAM Inactive LOVASTATIN 20 MG TABS Take 1 tablet by mouth daily 201 02/12/20 LOVASTATIN 20 MG TABS 573497 LOVASTATIN Inactive DIFLUCAN 150 MG TABS 1 qd DIFLUCAN 150 MG T ABS 548237 FLUCONAZOLE Inactive VITAMIN D3 2000 UNIT TABS 1 daily, for vitamin D deficiency 2014 VITAMIN D3 2000 UNIT TABS CHOLECALCIFEROL Inacti ve AMOXICILLIN 500 MG CAPS 1 cap by mouth three times a day AMOXICILLIN 500 MG CAPS 394445 AMOXICILLIN Inactive BACTRIM DS 800-160 MG TAB 1 tab by mouth twice daily X 10 DAYS 2 BACTRIM DS 800-160 MG TAB 319844 TRIMETHOPRIM-SULFAMETH OXAZOLE Inactive TRIMETHOPRIM 100 MG TABS 1/2 qd TRIMETHOPRI M 100 MG TABS 661079 TRIMETHOPRIM Inactive CETIRIZINE HCL 5 MG TABS Take 1 tablet by mouth daily CETIRIZINE HCL 5 MG TABS 5410888 CETIRIZINE HCL Inactive PRAMIPEXOLE DIHYDROCHLORIDE 0.125 MG ORAL TABS take 1 tablet po qhs for restless leg syndrome. PRAMIPEXOLE DIHYDROC HLORIDE 0.125 MG ORAL TABS 773156 PRAMIPEXOLE DIHYDROCHLORIDE Inactive MIRTAZAPINE 15 MG ORAL TABS 1/2 tab by mouth at bedtime. MIRTAZAPINE 15 MG ORAL TABS 213046 MIRTAZAPINE Inactive DIFLUCAN 100 MG TAB 1 tablet by mouth daily X 3 DAYS 2 DIFLUCAN 100 MG TAB 456808 FLUCONAZOLE Inactive DIFLUCAN 100 MG TABS 1 tablet by mouth every other day for 2 dos es DIFLUCAN 100 MG TABS 19760711 FLUCONAZOLE Inactive CEFTIN 250 MG TAB 1 tablet twice daily x 7 days 11/19 CEFTIN 250 MG TAB 696856 CEFUROXIME AXETIL Inactive BACTRIM DS 800-160 MG TAB 1 tab by mouth twice daily 2 BACTRIM DS 800-160 MG TAB 243455 TRIMETHOPRIM-SULFAMETHOXAZOLE Inac tive ZITHROMAX 250 MG TAB 2 po today, then 1 po q days 2-5 ZITHROMAX 250 MG TAB 1948863 AZITHROMYCIN Inactive BACTRIM DS 800-160 MG TAB 1 tab by mouth twice daily 2 BACTRIM DS 800-160 MG TAB 19830105 TRIMETHOPRIM-SULFAMETHOXAZOLE Inac tive BACTRIM DS 800-160 MG TAB 1 tab by mouth twice daily 2 BACTRIM DS 800-160 MG TAB 772845 TRIMETHOPRIM-SULFAMETHOXAZOLE Inac tive BACTRIM DS 800-160 MG TAB 1 tab by mouth twice daily 2 BACTRIM DS 800-160 MG TAB 19830105 TRIMETHOPRIM-SULFAMETHOXAZOLE Inac tive DIFLUCAN 150 MG TAB 1 tablet by mouth daily DIFLUCAN 150 MG TAB 19760712 FLUCONAZOLE Inactive BACTRIM DS 800-160 MG TAB 1 tab by mouth twice daily 2 BACTRIM DS 800-160 MG TAB 499113 TRIMETHOPRIM-SULFAMETHOXAZOLE Inac tive BACTRIM DS 800-160 MG TAB 1 tab by mouth twice daily 2 BACTRIM DS 800-160 MG TAB 19830105 TRIMETHOPRIM-SULFAMETHOXAZOLE Inac tive DIFLUCAN 100 MG TAB 1 tablet by mouth daily DIFLUCAN 100 MG TAB 19760711 FLUCONAZOLE Inactive Advance Directives Directive Description Start Date PERMISSION TO SHARE DISCUSSED WITH PATIENT -- NO DECISION MADE Vital Signs Date Name Value Unit Range Description blood pressure, diastolic - 8462-4 82 mm[Hg] BP lyon blood pressure, systolic - 8480-6 149 mm[Hg] BP sys pulse rate E&M - 8867-4 82 /min H eart rate temperature E&M 98.4 [degF] Body temp erature weight E&M - 3141-9 128 [lb_av] Weigh t Measured blood pressure, diastolic - 8462-4 79 mm[Hg] BP lyon blood pressure, systolic - 8480-6 135 mm[Hg] BP sys pulse rate E&M - 8867-4 90 /min H eart rate temperature E&M 98.5 [degF] Body temp erature weight E&M - 3141-9 127 [lb_av] Weigh t Measured blood pressure, diastolic - 8462-4 78 mm[Hg] BP lyon blood pressure, systolic - 8480-6 142 mm[Hg] BP sys pulse rate E&M - 8867-4 91 /min H eart rate temperature E&M 98.5 [degF] Body temp erature weight E&M - 3141-9 125 [lb_av] Weigh t Measured blood pressure, diastolic - 8462-4 88 mm[Hg] BP lyon blood pressure, systolic - 8480-6 132 mm[Hg] BP sys pulse rate E&M - 8867-4 91 /min H eart rate temperature E&M 99.2 [degF] Body temp erature weight E&M - 3141-9 123 [lb_av] Weigh t Measured blood pressure, diastolic - 8462-4 85 mm[Hg] BP lyon blood pressure, systolic - 8480-6 155 mm[Hg] BP sys pulse rate E&M - 8867-4 69 /min H eart rate temperature E&M 98.2 [degF] Body temp erature weight E&M - 3141-9 125.0 [lb_av] Weigh t Measured blood pressure, diastolic - 8462-4 87 mm[Hg] BP lyon blood pressure, systolic - 8480-6 147 mm[Hg] BP sys pulse rate E&M - 8867-4 93 /min H eart rate temperature E&M 99.0 [degF] Body temp erature weight E&M - 3141-9 130.5 [lb_av] Weigh t Measured blood pressure, diastolic - 8462-4 78 mm[Hg] BP lyon blood pressure, systolic - 8480-6 137 mm[Hg] BP sys pulse rate E&M - 8867-4 96 /min H eart rate temperature E&M 98.5 [degF] Body temp erature weight E&M - 3141-9 122.5 [lb_av] Weigh t Measured Diagnostic Results Date Name Value Unit Range Description Append: Nurse Note - Chemistry protein, total urine random negative mg/dL RBC, urine, dipstick non-hemolyzed trace Append: Nurse Note - Urinalysis ketones, urine, by test strip negative bilirubin, urine negative glucose, urine, semiquantitative negative specific gravity, urine 1.005 pH, urine, semiquantitative 6 urinalysis, routine Clean Catch culture status No urine color yellow appearance, urine clear leukocyte esterase, urine, by dipstick trace nitrite, urine, semiquantitative negative urobilinogen, urine, semiquantitative (dipstick) negative protein, urine, semiquantitative (dipstick) negative Lab Report: UA DIP/MANUAL - Chemistry protein, total urine random Negative mg/dL Negative RBC, urine, dipstick Trace Negative Lab Report: UA DIP/MANUAL - Urinalysis urobilinogen, urine, semiquantitative (dipstick) 0.2 Normal leukocyte esterase, urine, by dipstick Trace Negative nitrite, urine, semiquantitative Negative Neg ative glucose, urine, semiquantitative Negative Neg ative ketones, urine, by test strip Negative Negati ve bilirubin, urine Negative Negative urine color Light yellow Colorless;Lightyellow; Straw;Yellow appearance, urine Clear Clear specific gravity, urine 1.005 1.000-1.030 pH, urine, semiquantitative 6.0 5.0-8.5 Lab Report: UADIP W/MICRO, AUTO - Chemis try RBC, urine, dipstick 1+ Negative protein, total urine random Negative mg/dL Negative Lab Report: UADIP W/MICRO, AUTO - Urinal ysis glucose, urine, semiquantitative Negative Neg ative ketones, urine, by test strip Negative Negati ve bilirubin, urine Negative Negative urine color Yellow Colorless;Lightyellow;St raw;Yellow appearance, urine Clear Clear specific gravity, urine 1.010 1.000-1.030 pH, urine, semiquantitative 8.0 5.0-8.5 urobilinogen, urine, semiquantitative (dipstick) 0.2 Normal leukocyte esterase, urine, by dipstick Negative Negative nitrite, urine, semiquantitative Negative Neg ative Office Visit: 3 MONTH FU - Basic LDL target level 160 mg/dL Office Visit: 3 MONTH FU - Chemistry HDL cholesterol, serum, target level 40 mg/dL triglyceride, target level 150 mg/dL cholesterol, target level 200 mg/dL Encounters Code Encounter Date Provider Facility CPT-19931 Level 4 Est. Patient 09:14:56 CDT Tesfaye pearson MD [facility] CPT-35121 Level 4 Est. Patient 18:40:25 [employer] Tesfaye pearson MD [facility] CPT-89618 Level 4 Est. Patient 18:13:07 [employer] Tesfaye pearson MD [facility]-61450 Level 3 Est. Patient 10:46:32 CDT Rj cotto DO [facility] CPT-66959 Level 4 Est. Patient 20:19:25 CDT Tesfaye pearson MD [facility]-29786 Level 3 Est. Patient 09:07:31 CDT Tesfaye pearson MD [facility]-21840 Level 4 Est. Patient 13:12:56 CDT Tesfaye pearson MD [facility]-37392 Level 4 Est. Patient 21:24:55 [employer] Tesfaye pearson MD [facility]-86033 Level 3 Est. Patient 13:45:04 [employer] Tesfaye pearson MD [facility] CPT-49517 Level 4 Est. Patient 13:50:45 CDT Tesfaye pearson MD [facility] CPT-28689 Level 3 Est. Patient 10:16:10 CDT Tesfaye pearson MD [facility] CPT-08178 Level 3 Est. Patient 16:36:07 [employer] Kayla jameson MD [facility]-97863 Level 4 Est. Patient 16:00:14 [employer] Tesfaye pearson MD [facility]-00630 Level 4 Est. Patient 11:02:24 [employer] Tesfaye pearson MD [facility]-11495 Level 3 Est. Patient 20:21:43 [employer] Kayla jameson MD [facility]-20419 Level 3 Est. Patient 13:27:28 [employer] Kayla jameson MD [facility]-43538 Level 4 Est. Patient 15:57:17 [employer] Tesfaye pearson MD [facility] CPT-24729 Level 3 New Patient 13:25:47 CDT Tesfaye kidd MD [facility] CPT-66363 Level 3 New Patient 17:22:21 CDT Kayla angel MD [facility] Procedures Code Procedure Name Date Entry Date Standard Desc ription CPT-G0439 Subsequent Annual Wellness Exam 13:55:04 CDT CPT-G0438 Initial Annual Wellness Exam 11:23:17 CD T CPT-J2930 Solu Medrol 125 mg (Methyl Prednisolone Sodium Succinate) 17:29:12 [employer] CPT-03279 Abx/Therapy Injection 17:29:11 [employer] CPT-J2930 Solu Medrol 125 mg (Methyl Prednisolone Sodium Succinate) 12:34:38 [employer] CPT-J3420 Vitamin B12 1000mcg (Cyanocobalamin) 09:12:55 CDT CPT-J3420 Vitamin B12 1000mcg (Cyanocobalamin) 16:28:06 [employer] CPT-26689 Venipuncture Draw Fee 08:39:53 CDT CPT-J3420 Vitamin B12 1000mcg (Cyanocobalamin) 08:46:22 CDT CPT-77457 Abx/Therapy Injection 08:46:22 CDT CPT-J3420 Vitamin B12 1000mcg (Cyanocobalamin) 08:41:26 CDT CPT-11433 Abx/Therapy Injection 08:41:26 CDT CPT-J3420 Vitamin B12 1000mcg (Cyanocobalamin) 08:57:15 CDT CPT-20812 Abx/Therapy Injection 08:57:15 CDT CPT-J3420 Vitamin B12 1000mcg (Cyanocobalamin) 10:59:03 CDT CPT-84169 Abx/Therapy Injection 10:59:03 CDT CPT-J3420 Vitamin B12 1000mcg (Cyanocobalamin) 15:05:39 CDT CPT-91985 Abx/Therapy Injection 15:05:39 CDT CPT-J3420 Vitamin B12 1000mcg (Cyanocobalamin) 13:50:45 CDT CPT-J3420 Vitamin B12 1000mcg (Cyanocobalamin) 08:48:55 CDT CPT-90121 Abx/Therapy Injection 08:48:55 CDT CPT-J3420 Vitamin B12 1000mcg (Cyanocobalamin) 09:14:54 CDT CPT-30889 Abx/Therapy Injection 09:14:54 CDT CPT-J3420 Vitamin B12 1000mcg (Cyanocobalamin) 09:06:06 CDT CPT-91577 Abx/Therapy Injection 09:06:06 CDT CPT-J3420 Vitamin B12 1000mcg (Cyanocobalamin) 09:49:14 CDT CPT-75146 Abx/Therapy Injection 09:49:14 CDT CPT-J3420 Vitamin B12 1000mcg (Cyanocobalamin) 09:10:30 [employer] CPT-51480 Abx/Therapy Injection 09:10:30 [employer] CPT-J3420 Vitamin B12 1000mcg (Cyanocobalamin) 09:11:07 [employer] CPT-59203 Abx/Therapy Injection 09:11:07 [employer] CPT-J3420 Vitamin B12 1000mcg (Cyanocobalamin) 09:57:03 [employer] CPT-63816 Abx/Therapy Injection 09:57:03 [employer] CPT-J3420 Vitamin B12 1000mcg (Cyanocobalamin) 09:23:21 [employer] CPT-10690 Abx/Therapy Injection 09:23:21 [employer] CPT-98410 Urine Dip (Floor Use Only) 20:21:44 [employer] 201 02/12/11 CPT-73158 UA Dip Auto (Floor Use Only) 10:04:39 [employer] 2 CPT-99180 Urine Dip (Floor Use Only) 13:27:28 [employer] 201 02/12/01 CPT-11837 Bladder Scan 13:27:28 [employer] CPT-66344 Abd single AP View 14:30:51 [employer] CPT-OV Office Visit 10:15:43 CDT CPT-22407 Urine Dip (Floor Use Only) 17:22:21 CDT 201 02/09/02 CPT-62831 Bladder Scan 17:22:21 CDT
--- NOTE | 2020-05-05 11:43 | Diagnostic Imaging Report ---
Indication: Trauma, hip pain. Comparison: None. Findings: Single view of the pelvis, 2 views of the left hip demonstrate no fracture or dislocation. Articular surfaces are normal. SI joints are symmetric. The symphysis is approximated. Impression: No fracture or dislocation. Dictated by: Dictated on workstation # [id number]
--- OUTSIDE RECORDS SUMMARY | 2020-05-05 11:43 | XMS REPORT | Clinical Summary ---
Author Author Jeri Hanley Organization [employer] Address Unknown Phone Unavailable Allergies, Adverse Reactions, [...] Barba APRN Depressive disorder, not elsewhere classified Toe pain, right 729.5 Active Chelsea Barba APR N Pain in limb Foot pain, right 729.5 Active Chelsea NAPOLES RN Pain in limb Joint pain 719.40 Active Chelsea Barba APRN Pain in joint, site unspecified Medication List Medication Instructions Start Date Stop Date Generic Name NDC Status Provider Patient Instruction VENLAFAXINE HCL 37.5 MG TABS 1/4 tab po titrating up to full dose 2 VENLAFAXINE HCL 26818138632 Active Chelsea Barba APRN Activ e DIFLUCAN 100 MG TAB 1 tablet by mouth daily FLU CONAZOLE 05747626945 No Longer Active Tesfaye Sherman MD Active BACTRIM DS 800-160 MG TAB 1 tab by mouth twice daily 2 TRIMETHOPRIM-SULFAMETHOXAZOLE 66438397418 No Longer Active Tesfaye Sherman MD Active BACTRIM DS 800-160 MG TAB 1 tab by mouth twice daily 2 TRIMETHOPRIM-SULFAMETHOXAZOLE 02841693904 No Longer Active Tesfaye Sherman MD Active DIFLUCAN 150 MG TAB 1 tablet by mouth daily FLU CONAZOLE 50870444700 No Longer Active Tesfaye Sherman MD Active BACTRIM DS 800-160 MG TAB 1 tab by mouth twice daily 2 TRIMETHOPRIM-SULFAMETHOXAZOLE 09901789136 No Longer Active Tesfaye Sherman MD Active ROPINIROLE HCL 0.25 MG ORAL TABS 1 TAB PO Q HS ROPINIROLE HCL 62297106529 Active Tesfaye Sherman MD Active CYMBALTA 30 MG CPEP 1 cap by mouth daily with 60mg DULOXETINE HCL 58730563391 Active Tesfaye Sherman MD Active CEFTIN 250 MG TAB 1 tablet twice daily x 7 days 11/19 CEFUROXIME AXETIL 42557126839 No Longer Active Tesfaye Sherman MD Acti ve DIFLUCAN 100 MG TABS 1 tablet by mouth every other day for 2 dos es FLUCONAZOLE 85576139928 No Longer Active Tesfaye Sherman MD Active DIFLUCAN 100 MG TAB 1 tablet by mouth daily X 3 DAYS 2 FLUCONAZOLE 04329310140 No Longer Active Rj Moss DO Active MIRTAZAPINE 15 MG ORAL TABS 1/2 tab by mouth at bedtime. MIRTAZAPINE 48064406486 No Longer Active Tesfaye Sherman MD Acti ve BACTRIM DS 800-160 MG TAB 1 tab by mouth twice daily 2 TRIMETHOPRIM-SULFAMETHOXAZOLE 52405780577 No Longer Active Tesfaye Sherman MD Active PRAMIPEXOLE DIHYDROCHLORIDE 0.125 MG ORAL TABS take 1 tablet po qhs for restless leg syndrome. PRAMIPEXOLE DIHYDROCHLORIDE 53550448342 No Longer Active Tesfaye Sherman MD Active MAGNESIUM 400 MG ORAL TABS 1 tab po daily MAGNESI UM 98046948590 Active Chelsea Barba APRN Active SUDAFED 24 HOUR 240 MG ORAL TR97O-ECS 1 tab po daily PSEUDOEPHEDRINE HCL 11098352815 Active Chelsea Barba APRN A ctive CETIRIZINE HCL 5 MG TABS Take 1 tablet by mouth daily CETIRIZINE HCL 29500332943 No Longer Active Chelsea Barba APRN Acti ve TRIMETHOPRIM 100 MG TABS 1/2 qd TRIMETHOPRIM 89023379009 No Longer Active Chelsea Barba APRN Active BACTRIM DS 800-160 MG TAB 1 tab by mouth twice daily 2 TRIMETHOPRIM-SULFAMETHOXAZOLE 32292828205 No Longer Active Tesfaye Sherman MD Active BACTRIM DS 800-160 MG TAB 1 tab by mouth twice daily X 10 DAYS 2 TRIMETHOPRIM-SULFAMETHOXAZOLE 29479004083 No Longer Active Umer Sherman MD Active AMOXICILLIN 500 MG CAPS 1 cap by mouth three times a day AMOXICILLIN 36648541799 No Longer Active Adriana Arredondo Active MECLIZINE HCL 25 MG TAB one tab po qday prn dizziness MECLIZINE HCL 98167551291 Active Tesfaye Sherman MD Active B-12 1000 MCG ORAL LOZG 1 tab po daily CYANOCOBAL STANTON 59303078888 Active Tesfaye Sherman MD Active VITAMIN D3 2000 UNIT TABS 1 daily, for vitamin D deficiency 2014 CHOLECALCIFEROL 95533528571 No Longer Active Tesfaye Sherman MD Active TIZANIDINE HCL 2 MG TABS take 1-2 tablet by mouth ev at bedtime at 9pm PRN TIZANIDINE HCL 03893134598 Active Tesfaye Owusu Active ZITHROMAX 250 MG TAB 2 po today, then 1 po q days 2-5 AZITHROMYCIN 10694644344 No Longer Active Tesfaye Sherman MD Acti ve BACTRIM DS 800-160 MG TAB 1 tab by mouth twice daily 2 TRIMETHOPRIM-SULFAMETHOXAZOLE 13575446143 No Longer Active Tesfaye Sherman MD Active PRELIEF 340 (65-50) MG (CA-P) ORAL TABS CALCIUM GLYCEROPHOSPHATE 90037195096 Active Tesfaye Sherman MD Active [facility] NIACIN FLUSH FREE 400-100 MG CAPS 1 daily NIACIN-INOSITOL 89184936095 Active Kayla Cooper MD Active DIFLUCAN 150 MG TABS 1 qd FLUCONAZOLE 90979 221721 No Longer Active Kayla Cooper MD Active FLUTICASONE PROPIONATE 50 MCG/ACT SUSP 1 spray each nostril twice daily FLUTICASONE PROPIONATE 49033344944 Active Tesfaye armenta MD Active LOVASTATIN 20 MG TABS Take 1 tablet by mouth daily LOVASTATIN 42090900039 No Longer Active Tesfaye Sherman MD Active MELOXICAM 7.5 MG TABS 1 tablet by mouth daily Gisela ELOXICAM 46810004549 No Longer Active Tesfaye Sherman MD Active GABAPENTIN 300 MG CAPS Take two tablets by mouth every evening GABAPENTIN 46751506097 No Longer Active Edith Burch MD Active OXYCODONE-ACETAMINOPHEN 5-325 MG TABS Take one tablet by mouth every 6 hours as needed. Max 12 tabs/day as needed OXYCODONE-ACETAMINOP HEN 18937964695 Active Tesfaye Sherman MD Active CYMBALTA 60 MG CPEP Take 1 tablet by mouth daily D ULOXETINE HCL 63993369452 Active Kayla Cooper MD Active CLONAZEPAM 0.5 MG TABS Take one tablet in the morning and 1.5 table t at 7pm CLONAZEPAM 30488720581 Active Kayla Cooper MD Active BACLOFEN 10 MG TABS Take one tablet by mouth three times a day BACLOFEN 97248848265 Active Kayla Cooper MD Active GABAPENTIN 300 MG CAPS Take two tablets by mouth every evening GABAPENTIN 300 MG CAPS 650635 GABAPENTIN Inactive MELOXICAM 7.5 MG TABS 1 tablet by mouth daily MELOXICAM 7.5 MG TABS 778805 MELOXICAM Inactive LOVASTATIN 20 MG TABS Take 1 tablet by mouth daily 201 02/12/20 LOVASTATIN 20 MG TABS 600648 LOVASTATIN Inactive DIFLUCAN 150 MG TABS 1 qd DIFLUCAN 150 MG T ABS 567223 FLUCONAZOLE Inactive VITAMIN D3 2000 UNIT TABS 1 daily, for vitamin D deficiency 2014 VITAMIN D3 2000 UNIT TABS CHOLECALCIFEROL Inacti ve AMOXICILLIN 500 MG CAPS 1 cap by mouth three times a day AMOXICILLIN 500 MG CAPS 538599 AMOXICILLIN Inactive BACTRIM DS 800-160 MG TAB 1 tab by mouth twice daily X 10 DAYS 2 BACTRIM DS 800-160 MG TAB 19830105 TRIMETHOPRIM-SULFAMETH OXAZOLE Inactive TRIMETHOPRIM 100 MG TABS 1/2 qd TRIMETHOPRI M 100 MG TABS 597803 TRIMETHOPRIM Inactive CETIRIZINE HCL 5 MG TABS Take 1 tablet by mouth daily CETIRIZINE HCL 5 MG TABS 3045744 CETIRIZINE HCL Inactive PRAMIPEXOLE DIHYDROCHLORIDE 0.125 MG ORAL TABS take 1 tablet po qhs for restless leg syndrome. PRAMIPEXOLE DIHYDROC HLORIDE 0.125 MG ORAL TABS 693837 PRAMIPEXOLE DIHYDROCHLORIDE Inactive MIRTAZAPINE 15 MG ORAL TABS 1/2 tab by mouth at bedtime. MIRTAZAPINE 15 MG ORAL TABS 113280 MIRTAZAPINE Inactive DIFLUCAN 100 MG TAB 1 tablet by mouth daily X 3 DAYS 2 DIFLUCAN 100 MG TAB 708848 FLUCONAZOLE Inactive DIFLUCAN 100 MG TABS 1 tablet by mouth every other day for 2 dos es DIFLUCAN 100 MG TABS 240280 FLUCONAZOLE Inactive CEFTIN 250 MG TAB 1 tablet twice daily x 7 days 11/19 CEFTIN 250 MG TAB 165876 CEFUROXIME AXETIL Inactive BACTRIM DS 800-160 MG TAB 1 tab by mouth twice daily 2 BACTRIM DS 800-160 MG TAB 19830105 TRIMETHOPRIM-SULFAMETHOXAZOLE Inac tive ZITHROMAX 250 MG TAB 2 po today, then 1 po q days 2-5 ZITHROMAX 250 MG TAB 7551948 AZITHROMYCIN Inactive BACTRIM DS 800-160 MG TAB [...] daily 2 BACTRIM DS 800-160 MG TAB 531353 TRIMETHOPRIM-SULFAMETHOXAZOLE Inac tive DIFLUCAN 100 MG TAB 1 tablet by mouth daily DIFLUCAN 100 MG TAB 422380 FLUCONAZOLE Inactive Advance Directives Directive Description Start [...] protein, urine, semiquantitative (dipstick) negative Lab Report: CBC W/DIFF - Hematology leukocyte count, blood 8.8 10^3/MM^3 10*3/mm3 4.6-10.2 neutrophils as percent of blood leukocytes 56.3 % 42.2-75.2 monocytes as percent of blood leukocytes 8.7 % 1.7-9.3 lymphocytes as percent of blood leukocytes 28.7 % 20.5-51.1 erythrocyte (RBC) count 4.91 10^6/MM^3 10*6/mm3 3.80-5.8 0 hemoglobin, blood 15.8 g/dL 12.0-16.0 hematocrit, blood 46.5 % 37.0-47.0 mean corpuscular volume, RBC 95 fL 80-97 mean corpuscular hemoglobin, RBC 32.3 pg 27. 0-31.2 mean corpuscular hemoglobin concentration, RBC 34.0 G/DL % 31.8-35.4 red blood cell distribution width 11.7 % 11 .6-14.8 platelet count 349 10^3/MM^3 10*3/mm3 142-424 Lab Report: UA DIP/MANUAL - Chemistry RBC, urine, dipstick Trace Negative protein, total urine random Negative mg/dL Negative Lab Report: UA DIP/MANUAL - Urinalysis glucose, urine, semiquantitative Negative Neg ative ketones, urine, by test strip Negative Negati ve bilirubin, urine Negative Negative urine color Light yellow Colorless;Lightyellow; Straw;Yellow appearance, urine Clear Clear specific gravity, urine 1.005 1.000-1.030 pH, urine, semiquantitative 6.0 5.0-8.5 urobilinogen, urine, semiquantitative (dipstick) 0.2 Normal leukocyte esterase, urine, by dipstick Trace Negative nitrite, urine, semiquantitative Negative Neg ative Lab Report: UADIP W/MICRO, AUTO - Chemis [...] mg/dL Encounters Code Encounter Date Provider Facility CPT-06945 Level 4 Est. Patient 09:14:56 CDT Tesfaye pearson MD [facility] CPT-48651 Level 4 Est. 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 Patient 18:13:07 [employer] Tesfaye pearson MD [facility] CPT-15748 Level 3 Est. Patient 10:46:32 CDT Rj cotto DO [facility]-08243 Level 4 Est. Patient 20:19:25 CDT Tesfaye pearson MD [facility]-47677 Level 3 Est. Patient 09:07:31 CDT Tesfaye pearson MD [facility]-45409 Level 4 Est. Patient 13:12:56 CDT Tesfaye pearson MD [facility]-48438 Level 4 Est. Patient 21:24:55 [employer] Tesfaye pearson MD [facility]-53757 Level 3 Est. Patient 13:45:04 INS[employer]OR [employer] Tesfaye pearson MD [facility]-08699 Level 4 Est. Patient 13:50:45 CDT Tesfaye pearson MD [facility]-34779 Level 3 Est. Patient 10:16:10 CDT Tesfaye peasron MD [facility]-95608 Level 3 Est. Patient 16:36:07 [employer] Kayla jameson MD [facility]-55714 Level 4 Est. Patient 16:00:14 [employer] Tesfaye pearson MD [facility]-22625 Level 4 Est. Patient 11:02:24 INS[employer]OR [employer] Tesfaye pearson MD [facility]-55886 Level 3 Est. Patient 20:21:43 [employer] Kayla jameson MD [facility]-85710 Level 3 Est. Patient 13:27:28 INS[employer] Kayla jameson MD [facility]-76728 Level 4 Est. Patient 15:57:17 INS[employer]OR [employer] Tesfaye pearson MD [facility] CPT-81009 Level 3 New Patient 13:25:47 CDT Tesfaye kidd MD [facility] CPT-81404 Level 3 New Patient 17:22:21 CDT Kayla angel MD [facility] Procedures Code Procedure Name Date Entry Date Standard Desc ription CPT-42077 Foot, right, comp min 3V - XRAY USE ONLY 10:38:34 CDT CPT-G0439 Subsequent Annual Wellness Exam 13:55:04 CDT CPT-G0438 Initial Annual Wellness Exam 11:23:17 CD T CPT-J2930 Solu Medrol 125 mg (Methyl Prednisolone Sodium Succinate) 17:29:12 [employer] CPT-51200 Abx/Therapy Injection 17:29:11 [employer] CPT-J2930 Solu Medrol 125 mg (Methyl Prednisolone Sodium Succinate) 12:34:38 [employer] CPT-J3420 Vitamin B12 1000mcg (Cyanocobalamin) 09:12:55 CDT CPT-J3420 Vitamin B12 1000mcg (Cyanocobalamin) 16:28:06 [employer] CPT-91839 Venipuncture Draw Fee 08:39:53 CDT CPT-J3420 Vitamin B12 1000mcg (Cyanocobalamin) 08:46:22 CDT CPT-51458 Abx/Therapy Injection 08:46:22 CDT CPT-J3420 Vitamin B12 1000mcg (Cyanocobalamin) 08:41:26 CDT CPT-78765 Abx/Therapy Injection 08:41:26 CDT CPT-J3420 Vitamin B12 1000mcg (Cyanocobalamin) 08:57:15 CDT CPT-58076 Abx/Therapy Injection 08:57:15 CDT CPT-J3420 Vitamin B12 1000mcg (Cyanocobalamin) 10:59:03 CDT CPT-98719 Abx/Therapy Injection 10:59:03 CDT CPT-J3420 Vitamin B12 1000mcg (Cyanocobalamin) 15:05:39 CDT CPT-97477 Abx/Therapy Injection 15:05:39 CDT CPT-J3420 Vitamin B12 1000mcg (Cyanocobalamin) 13:50:45 CDT CPT-J3420 Vitamin B12 1000mcg (Cyanocobalamin) 08:48:55 CDT CPT-79977 Abx/Therapy Injection 08:48:55 CDT CPT-J3420 Vitamin B12 1000mcg (Cyanocobalamin) 09:14:54 CDT CPT-48050 Abx/Therapy Injection 09:14:54 CDT CPT-J3420 Vitamin B12 1000mcg (Cyanocobalamin) 09:06:06 CDT CPT-23017 Abx/Therapy Injection 09:06:06 CDT CPT-J3420 Vitamin B12 1000mcg (Cyanocobalamin) 09:49:14 CDT CPT-58435 Abx/Therapy Injection 09:49:14 CDT CPT-J3420 Vitamin B12 1000mcg (Cyanocobalamin) 09:10:30 [employer] CPT-92563 Abx/Therapy Injection 09:10:30 [employer] CPT-J3420 Vitamin B12 1000mcg (Cyanocobalamin) 09:11:07 [employer] CPT-03705 Abx/Therapy Injection 09:11:07 [employer] CPT-J3420 Vitamin B12 1000mcg (Cyanocobalamin) 09:57:03 [employer] CPT-90296 Abx/Therapy Injection 09:57:03 [employer] CPT-J3420 Vitamin B12 1000mcg (Cyanocobalamin) 09:23:21 [employer] CPT-23792 Abx/Therapy Injection 09:23:21 [employer] CPT-75868 Urine Dip (Floor Use Only) 20:21:44 [employer] 201 02/12/11 CPT-69417 UA Dip Auto (Floor Use Only) 10:04:39 [employer] 2 CPT-62964 Urine Dip (Floor Use Only) 13:27:28 [employer] 201 02/12/01 CPT-77842 Bladder Scan 13:27:28 [employer] CPT-13850 Abd single AP View 14:30:51 [employer] CPT-OV Office Visit 10:15:43 CDT CPT-76433 Urine Dip (Floor Use Only) 17:22:21 CDT 201 02/09/02 CPT-63171 Bladder Scan 17:22:21 CDT
--- OUTSIDE RECORDS SUMMARY | 2020-05-05 11:43 | XMS REPORT | Clinical Summary ---
Author Author Talon, Jeri Wood Organization [facility] Address Unknown Phone Unavailable Allergies, Adverse [...] Active Tesfaye Sherman MD Acute sinusitis, unspecified Medication List Medication Instructions Start Date Stop Date Generic Name NDC Status Provider Patient Instruction ZITHROMAX 250 MG TAB 2 po today, then 1 po q days 2-5 AZITHROMYCIN 32118274990 No Longer Active Tesfaye Sherman MD Acti ve BACTRIM DS 800-160 MG TAB 1 tab by mouth twice daily 2 TRIMETHOPRIM-SULFAMETHOXAZOLE 11723293136 No Longer Active Tesfaye Sherman MD Active VITAMIN D3 2000 UNIT TABS 1 daily, for vitamin D deficiency CHOLECALCIFEROL 08922209334 Active Tesfaye Sherman MD Activ e PRELIEF 340 (65-50) MG (CA-P) ORAL TABS CALCIUM GLYCEROPHOSPHATE 54863544697 Active Tesfaye Sherman MD Active [facility] NIACIN FLUSH FREE 400-100 MG CAPS 1 daily NIACIN-INOSITOL 86538056115 Active Kayla Cooper MD Active DIFLUCAN 150 MG TABS 1 qd FLUCONAZOLE 04053 751160 No Longer Active Kayla Cooper MD Active FLUTICASONE PROPIONATE 50 MCG/ACT SUSP 1 spray each nostril twice daily FLUTICASONE PROPIONATE 27656166552 Active Tesfaye armenta MD Active LOVASTATIN 20 MG TABS Take 1 tablet by mouth daily LOVASTATIN 19780133697 No Longer Active Tesfaye Sherman MD Active MELOXICAM 7.5 MG TABS 1 tablet by mouth daily M ELOXICAM 20080189022 No Longer Active Tesfaye Sherman MD Active GABAPENTIN 300 MG CAPS Take two tablets by mouth every evening GABAPENTIN 36968763076 No Longer Active Edith Burch MD Active TRIMETHOPRIM 100 MG TABS 1/2 qd TRIMETHOPRIM 6355741 3001 Active Kayla Cooper MD Active TIZANIDINE HCL 2 MG TABS take one tablet by mouth every day at bedtime at 9pm TIZANIDINE HCL 24751097392 Active Kayla Cooper MD Active OXYCODONE-ACETAMINOPHEN 5-325 MG TABS Take one tablet by mouth every 6 hours as needed. Max 12 tabs/day as needed OXYCODONE-ACETAMINOP HEN 18667832560 Active Tesfaye Sherman MD Active CYMBALTA 60 MG CPEP Take 1 tablet by mouth daily D ULOXETINE HCL 93375734413 Active Kayla Cooper MD Active CLONAZEPAM 0.5 MG TABS Take one tablet in the morning and 1.5 table t at 7pm CLONAZEPAM 01103193589 Active Kayla Cooper MD Active CETIRIZINE HCL 5 MG TABS Take 1 tablet by mouth daily CETIRIZINE HCL 68123988644 Active Kayla Cooper MD Active BACLOFEN 10 MG TABS Take one tablet by mouth three times a day BACLOFEN 90086273432 Active Kayla Cooper MD Active GABAPENTIN 300 MG CAPS Take two tablets by mouth every evening GABAPENTIN 300 MG CAPS 457042 GABAPENTIN Inactive MELOXICAM 7.5 MG TABS 1 tablet by mouth daily MELOXICAM 7.5 MG TABS 327250 MELOXICAM Inactive LOVASTATIN 20 MG TABS Take 1 tablet by mouth daily 201 02/12/20 LOVASTATIN 20 MG TABS 623293 LOVASTATIN Inactive DIFLUCAN 150 MG TABS 1 qd DIFLUCAN 150 MG T ABS 482045 FLUCONAZOLE Inactive BACTRIM DS 800-160 MG TAB 1 tab by mouth twice daily 2 BACTRIM DS 800-160 MG TAB TRIMETHOPRIM-SULFAMETHOXAZOLE Inac tive ZITHROMAX 250 MG TAB 2 po today, then 1 po q days 2-5 ZITHROMAX 250 MG TAB 6982823 AZITHROMYCIN Inactive Advance Directives Directive Description Start Date PERMISSION TO SHARE PERMISSION TO SHARE Vital Signs Date Name Value Unit Range Description blood pressure, diastolic - 8462-4 73 mm[Hg] [...] Panel - Chemistry sodium, serum 138 mmol/L 897-021 0431/10/20 potassium, serum 4.5 mmol/L 3.5-5.2 chloride, serum [...] 0.90 mg/dL 0.00-1.00 cholesterol, serum 237 mg/dL 906-528 0942/10/20 triglyceride, serum, fasting 71 mg/dL 30-200 HDL [...] Panel - Chemistry cholesterol, serum 221 mg/dL 337-050 5486/01/23 triglyceride, serum, fasting 81 mg/dL 30-200 HDL [...] 1.010 1.000-1.030 pH, urine, semiquantitative 6.5 5.0-8.5 Office Visit: 1 month recheck - [...] Office Visit: f/u hydrodistention - Chem istry RBC, urine, dipstick negative protein, total urine random negative mg/dL Office Visit: f/u hydrodistention - Urin alysis urinalysis, routine Clean Catch ketones, urine, by test strip negative bilirubin, urine negative glucose, urine, semiquantitative negative pH, urine, semiquantitative 5 specific gravity, urine 1.000 urine color yellow appearance, urine clear leukocyte esterase, urine, by dipstick negative nitrite, urine, semiquantitative negative urobilinogen, urine, semiquantitative (dipstick) 0.2 protein, urine, semiquantitative (dipstick) negative Office Visit: Frequent UTI - Chemistry protein, [...] negative Encounters Code Encounter Date Provider Facility CPT-46274 Level 3 Est. Patient 10:16:10 CDT Tesfaye pearson MD [facility] CPT-71342 Level 3 Est. 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 Tesfaye pearson MD [facility] CPT-66736 Level 3 New Patient 13:25:47 CDT Tesfaye kidd MD [facility] CPT-85441 Level 3 New Patient 17:22:21 CDT Kayla angel MD [facility] Procedures Code Procedure Name Date Entry Date Standard Desc ription CPT-J3420 Vitamin B12 1000mcg (Cyanocobalamin) 09:14:54 CDT CPT-39335 Abx/Therapy Injection 09:14:54 CDT CPT-J3420 Vitamin B12 1000mcg (Cyanocobalamin) 09:06:06 CDT CPT-99488 Abx/Therapy Injection 09:06:06 CDT CPT-J3420 Vitamin B12 1000mcg (Cyanocobalamin) 09:49:14 CDT CPT-86049 Abx/Therapy Injection 09:49:14 CDT CPT-J3420 Vitamin B12 1000mcg (Cyanocobalamin) 09:10:30 SECTION HAND HELPER CPT-06019 Abx/Therapy Injection 09:10:30 SECTION HAND HELPER CPT-J3420 Vitamin B12 1000mcg (Cyanocobalamin) 09:11:07 SECTION HAND HELPER CPT-79249 Abx/Therapy Injection 09:11:07 SECTION HAND HELPER CPT-J3420 Vitamin B12 1000mcg (Cyanocobalamin) 09:57:03 SECTION HAND HELPER CPT-34593 Abx/Therapy Injection 09:57:03 SECTION HAND HELPER CPT-J3420 Vitamin B12 1000mcg (Cyanocobalamin) 09:23:21 SECTION HAND HELPER CPT-87788 Abx/Therapy Injection 09:23:21 SECTION HAND HELPER CPT-29011 Urine Dip (Floor Use Only) 20:21:44 SECTION HAND HELPER 201 02/12/11 CPT-67467 UA Dip Auto (Floor Use Only) 10:04:39 SECTION HAND HELPER 2 CPT-78788 Urine Dip (Floor Use Only) 13:27:28 SECTION HAND 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
--- OUTSIDE RECORDS SUMMARY | 2020-05-05 11:43 | XMS REPORT | Clinical Summary ---
Author Author Talon, Jeri Wood Organization [employer] Address Unknown Phone Unavailable Allergies, Adverse Reactions, [...] Barba APRN Pain in joint, site unspecified Tobacco abuse 305.1 Active Edith Burch MD Tobacco use disorder Dysuria 788.1 Active Tesfaye Sherman MD Dysuria Medication List Medication Instructions Start Date Stop Date Generic Name NDC Status Provider Patient Instruction MECLIZINE HCL 25 MG TAB one 4 times a day as needed for dizziness 2 MECLIZINE HCL 55267004793 Active Laurenceyohana Dominguez Active DIFLUCAN 100 MG TAB 1 tablet by mouth daily FLU CONAZOLE 37107877889 Active Laurence Angelica Active AMOXICILLIN 500 MG CAPS 1 cap by mouth three times a day AMOXICILLIN 43529915879 Active Laurence Angelica Active VENLAFAXINE HCL 75 MG TABS 1 am 1/2 at noon BALA LAFAXINE HCL 55996997931 Active Tesfaye Sherman MD Active DIFLUCAN 100 MG TAB 1 tablet by mouth daily FLU CONAZOLE 34929299892 No Longer Active Tesfaye Sherman MD Active BACTRIM DS 800-160 MG TAB 1 tab by mouth twice daily 2 TRIMETHOPRIM-SULFAMETHOXAZOLE 06253835879 No Longer Active Laurence Dominguez Active FOSAMAX 70 MG TABS 1 po qweek. Take 30min prio r to first food/drink. Avoid lying down x 1 hour. ALENDRONATE SODIUM 55176849033 N o Longer Active Laurence Angelica Active REPHRESH PRO-B ORAL CAPS 1 tablet daily LACTOBACI LLUS 05109308722 Active Edith Burch MD Active CYMBALTA 60 MG CPEP Take 1 tablet by mouth daily 1 DULOXETINE HCL 91316862620 No Longer Active Edith Burch MD Active CYMBALTA 30 MG CPEP 1 cap by mouth daily with 60mg 201 05/09/11 DULOXETINE HCL 95054559665 No Longer Active Edith Burch MD Activ e FISH OIL 1000 MG CPDR 1 pill by mouth daily for cholesterol 04/18 OMEGA- 3 FATTY ACIDS 98964067132 Active Rosa Jaffe LPN Acti ve RED YEAST RICE 600 MG CAPS 1 pill by mouth daily RED YEAST RICE EXTRACT 47434118038 Active Rosa Jaffe LPN Activ e DIFLUCAN 100 MG TAB 1 tablet by mouth daily FLU CONAZOLE 41803371365 No Longer Active Tesfaye Sherman MD Active BACTRIM DS 800-160 MG TAB 1 tab by mouth twice daily 2 TRIMETHOPRIM-SULFAMETHOXAZOLE 10990456623 No Longer Active Tesfaye Sherman MD Active BACTRIM DS 800-160 MG TAB 1 tab by mouth twice daily 2 TRIMETHOPRIM-SULFAMETHOXAZOLE 85674138848 No Longer Active Tesfaye Sherman MD Active DIFLUCAN 150 MG TAB 1 tablet by mouth daily FLU CONAZOLE 76293236056 No Longer Active Tesfaye Sherman MD Active BACTRIM DS 800-160 MG TAB 1 tab by mouth twice daily 2 TRIMETHOPRIM-SULFAMETHOXAZOLE 39173992556 No Longer Active Tesfaye Sherman MD Active ROPINIROLE HCL 0.25 MG ORAL TABS 1 TAB PO Q HS ROPINIROLE HCL 99561233603 Active Tesfaye Sherman MD Active CEFTIN 250 MG TAB 1 tablet twice daily x 7 days 11/19 CEFUROXIME AXETIL 79400554853 No Longer Active Tesfaye Sherman MD Acti ve DIFLUCAN 100 MG TABS 1 tablet by mouth every other day for 2 dos es FLUCONAZOLE 01265657053 No Longer Active Tesfaye Sherman MD Active DIFLUCAN 100 MG TAB 1 tablet by mouth daily X 3 DAYS 2 FLUCONAZOLE 66891260445 No Longer Active Rj Moss DO Active MIRTAZAPINE 15 MG ORAL TABS 1/2 tab by mouth at bedtime. MIRTAZAPINE 24423646239 No Longer Active Tesfaye Sherman MD Acti ve BACTRIM DS 800-160 MG TAB 1 tab by mouth twice daily 2 TRIMETHOPRIM-SULFAMETHOXAZOLE 64926278473 No Longer Active Tesfaye Sherman MD Active PRAMIPEXOLE DIHYDROCHLORIDE 0.125 MG ORAL TABS take 1 tablet po qhs for restless leg syndrome. PRAMIPEXOLE DIHYDROCHLORIDE 95246811804 No Longer Active Tesfaye Sherman MD Active MAGNESIUM 400 MG ORAL TABS 1 tab po daily MAGNESI UM 21782993687 Active Chelsea Barba APRN Active SUDAFED 24 HOUR 240 MG ORAL [id number] 1 tab po daily PSEUDOEPHEDRINE HCL 28196441891 Active Chelsea Barba APRN A ctive CETIRIZINE HCL 5 MG TABS Take 1 tablet by mouth daily CETIRIZINE HCL 96569593952 No Longer Active Chelsea Barba APRN Acti ve TRIMETHOPRIM 100 MG TABS 1/2 qd TRIMETHOPRIM 77079436808 No Longer Active Chelsea Barba APRN Active BACTRIM DS 800-160 MG TAB 1 tab by mouth twice daily 2 TRIMETHOPRIM-SULFAMETHOXAZOLE 63832072070 No Longer Active Tesfaye Sherman MD Active BACTRIM DS 800-160 MG TAB 1 tab by mouth twice daily X 10 DAYS 2 TRIMETHOPRIM-SULFAMETHOXAZOLE 16077010363 No Longer Active Umer Sherman MD Active AMOXICILLIN 500 MG CAPS 1 cap by mouth three times a day AMOXICILLIN 90007510082 No Longer Active Adriana Arredondo Active MECLIZINE HCL 25 MG TAB one tab po qday prn dizziness MECLIZINE HCL 57160203874 Active Tesfaye Sherman MD Active B-12 1000 MCG ORAL LOZG 1 tab po daily CYANOCOBAL STANTON 89469242180 Active Tesfaye Sherman MD Active VITAMIN D3 2000 UNIT TABS 1 daily, for vitamin D deficiency 2014 CHOLECALCIFEROL 58874412707 No Longer Active Tesfaye Sherman MD Active TIZANIDINE HCL 2 MG TABS take 1-2 tablet by mouth ev [place] day at bedtime at 9pm PRN TIZANIDINE HCL 26577844125 Active Tesfaye Owusu Active ZITHROMAX 250 MG TAB 2 po today, then 1 po q days 2-5 AZITHROMYCIN 07347014152 No Longer Active Tesfaye Sherman MD Acti ve BACTRIM DS 800-160 MG TAB 1 tab by mouth twice daily 2 TRIMETHOPRIM-SULFAMETHOXAZOLE 81006685984 No Longer Active Tesfaye Sherman MD Active PRELIEF 340 (65-50) MG (CA-P) ORAL TABS CALCIUM GLYCEROPHOSPHATE 94835179073 Active Tesfaye Sherman MD Active [facility] NIACIN FLUSH FREE 400-100 MG CAPS 1 daily NIACIN-INOSITOL 08029257448 Active Kayla Cooper MD Active DIFLUCAN 150 MG TABS 1 qd FLUCONAZOLE 53046 763011 No Longer Active Kayla Cooper MD Active FLUTICASONE PROPIONATE 50 MCG/ACT SUSP 1 spray each nostril twice daily FLUTICASONE PROPIONATE 69720223635 Active Tesfaye armenta MD Active LOVASTATIN 20 MG TABS Take 1 tablet by mouth daily LOVASTATIN 13778911917 No Longer Active Tesfaye Sherman MD Active MELOXICAM 7.5 MG TABS 1 tablet by mouth daily M ELOXICAM 12373715133 No Longer Active Tesfaye Sherman MD Active GABAPENTIN 300 MG CAPS Take two tablets by mouth every evening GABAPENTIN 77056103762 No Longer Active Edith Burch MD Active OXYCODONE-ACETAMINOPHEN 5-325 MG TABS Take one tablet by mouth every 6 hours as needed. Max 12 tabs/day as needed OXYCODONE-ACETAMINOP HEN 11046826805 Active Tesfaye Sherman MD Active CLONAZEPAM 0.5 MG TABS Take one tablet in the morning and 1.5 table t at 7pm CLONAZEPAM 32248755920 Active Kayla Cooper MD Active BACLOFEN 10 MG TABS Take one tablet by mouth three times a day BACLOFEN 27683140894 Active Kayla Cooper MD Active GABAPENTIN 300 MG CAPS Take two tablets by mouth every evening GABAPENTIN 300 MG CAPS 900817 GABAPENTIN Inactive MELOXICAM 7.5 MG TABS 1 tablet by mouth daily MELOXICAM 7.5 MG TABS 980876 MELOXICAM Inactive LOVASTATIN 20 MG TABS Take 1 tablet by mouth daily 201 02/12/20 LOVASTATIN 20 MG TABS 518093 LOVASTATIN Inactive DIFLUCAN 150 MG TABS 1 qd DIFLUCAN 150 MG T ABS 895690 FLUCONAZOLE Inactive VITAMIN D3 2000 UNIT TABS 1 daily, for vitamin D deficiency 2014 VITAMIN D3 2000 UNIT TABS CHOLECALCIFEROL Inacti ve AMOXICILLIN 500 MG CAPS 1 cap by mouth three times a day AMOXICILLIN 500 MG CAPS 139205 AMOXICILLIN Inactive BACTRIM DS 800-160 MG TAB 1 tab by mouth twice daily X 10 DAYS 2 BACTRIM DS 800-160 MG TAB 864551 TRIMETHOPRIM-SULFAMETH OXAZOLE Inactive TRIMETHOPRIM 100 MG TABS 1/2 qd TRIMETHOPRI M 100 MG TABS 518426 TRIMETHOPRIM Inactive CETIRIZINE HCL 5 MG TABS Take 1 tablet by mouth daily CETIRIZINE HCL 5 MG TABS 0687764 CETIRIZINE HCL Inactive PRAMIPEXOLE DIHYDROCHLORIDE 0.125 MG ORAL TABS take 1 tablet po qhs for restless leg syndrome. PRAMIPEXOLE DIHYDROC HLORIDE 0.125 MG ORAL TABS 748770 PRAMIPEXOLE DIHYDROCHLORIDE Inactive MIRTAZAPINE 15 MG ORAL TABS 1/2 tab by mouth at bedtime. MIRTAZAPINE 15 MG ORAL TABS 109948 MIRTAZAPINE Inactive DIFLUCAN 100 MG TAB 1 tablet by mouth daily X 3 DAYS 2 DIFLUCAN 100 MG TAB 148278 FLUCONAZOLE Inactive DIFLUCAN 100 MG TABS 1 tablet by mouth every other day for 2 dos es DIFLUCAN 100 MG TABS 041003 FLUCONAZOLE Inactive CEFTIN 250 MG TAB 1 tablet twice daily x 7 days 11/19 CEFTIN 250 MG TAB 617037 CEFUROXIME AXETIL Inactive CYMBALTA 30 MG CPEP 1 cap by mouth daily with 60mg 201 05/09/11 CYMBALTA 30 MG CPEP 694758 DULOXETINE HCL Inactive CYMBALTA 60 MG CPEP Take 1 tablet by mouth daily 05/13 CYMBALTA 60 MG CPEP 869474 DULOXETINE HCL Inactive FOSAMAX 70 MG TABS 1 po qweek. Take 30min prio r to first food/drink. Avoid lying down x 1 hour. FOSAMAX 70 MG TABS 984497 A LENDRONATE SODIUM Inactive DIFLUCAN 100 MG TAB 1 tablet by mouth daily DIFLUCAN 100 MG TAB 137425 FLUCONAZOLE Inactive BACTRIM DS 800-160 MG TAB 1 tab by mouth twice daily 2 BACTRIM DS 800-160 MG TAB 19830105 TRIMETHOPRIM-SULFAMETHOXAZOLE Inac tive ZITHROMAX 250 MG TAB 2 po today, then 1 po q days 2-5 ZITHROMAX 250 MG TAB 497365 AZITHROMYCIN Inactive BACTRIM DS 800-160 MG TAB [...] DIFLUCAN 100 MG TAB 19760711 FLUCONAZOLE Inactive BACTRIM DS 800-160 MG TAB 1 tab by mouth twice daily 2 BACTRIM DS 800-160 MG TAB 19830105 TRIMETHOPRIM-SULFAMETHOXAZOLE Inac tive Advance Directives Directive Description Start Date PERMISSION TO SHARE DISCUSSED WITH PATIENT -- NO DECISION MADE DURABLE POWER OF GLOBAL CHIEF CREATIVE OFFICER FOR HEALTHCARE Vital Signs Date Name Value Unit Range Description blood pressure, diastolic 86 mm[Hg] BP lyon blood pressure, systolic 137 mm[Hg] BP sys pulse rate E&M 82 /min Heart rate temperature E&M 98.5 [degF] Body temp erature weight E&M 123 [lb_av] Weight Measure d blood pressure, diastolic 85 mm[Hg] BP lyon blood pressure, systolic 153 mm[Hg] BP sys pulse rate E&M 67 /min Heart rate temperature E&M 99.2 [degF] Body temp erature weight E&M 125 [lb_av] Weight Measure d blood pressure, diastolic 91 mm[Hg] BP lyon blood pressure, systolic 147 mm[Hg] BP sys height E&M 62 [in_us] Bdy height pulse rate E&M 82 /min Heart rate temperature E&M 98.5 [degF] Body temp erature weight E&M 126 [lb_av] Weight Measure d blood pressure, diastolic 82 mm[Hg] BP lyon blood pressure, systolic 149 mm[Hg] BP sys pulse rate E&M 82 /min Heart rate temperature E&M 98.4 [degF] Body temp erature weight E&M 128 [lb_av] Weight Measure d blood pressure, diastolic 79 mm[Hg] BP lyon blood pressure, systolic 135 mm[Hg] BP sys pulse rate E&M 90 /min Heart rate temperature E&M 98.5 [degF] Body temp erature weight E&M 127 [lb_av] Weight Measure d blood pressure, diastolic 78 mm[Hg] BP lyon blood pressure, systolic 142 mm[Hg] BP sys pulse rate E&M 91 /min Heart rate temperature E&M 98.5 [degF] Body temp erature weight E&M 125 [lb_av] Weight Measure d blood pressure, diastolic 88 mm[Hg] BP lyon blood pressure, systolic 132 mm[Hg] BP sys pulse rate E&M 91 /min Heart rate temperature E&M 99.2 [degF] Body temp erature weight E&M 123 [lb_av] Weight Measure d Diagnostic Results Date Name Value Unit Range Description Lab Report: CBC W/DIFF - Hematology leukocyte [...] count 349 10^3/MM^3 10*3/mm3 142-424 Lab Report: Comp. Metabolic Panel, Lipid Panel, Thyroid Stimulating Horm ... - Chemistry sodium, serum 144 mmol/L 148-765 6523/06/14 carbon dioxide, venous blood 29.4 mmol/L 21.0-32 .0 potassium, serum 4.4 mmol/L 3.5-5.2 chloride, serum 108 mmol/L 98-107 blood glucose 100 mg/dL 65-110 urea nitrogen, blood 9 mg/dL 7-18 creatinine, serum 0.67 mg/dL 0.55-1.30 alanine aminotransferase (SGPT), serum 24 U/L 12-78 aspartate aminotransferase (SGOT), serum 15 U/L 15-37 calcium, serum 9.3 mg/dL 8.5-10.1 bilirubin, serum, total 0.50 mg/dL 0.00-1.00 cholesterol, serum 268 mg/dL 007-192 1436/06/14 triglyceride, serum, fasting 126 mg/dL 30-200 HDL cholesterol, serum 51 mg/dL 32-96 LDL cholesterol, serum 192 mg/dL 0-130 TSH 0.83 m[iU]/mL 0.36-3.74 thyroxine, serum, free 1.03 ng/dL 0.76-1.46 uric acid, serum 3.2 mg/dL 2.6-7.2 Lab Report: UADIP W/MICRO, AUTO - Chemis [...] 1.010 1.000-1.030 pH, urine, semiquantitative 7.0 5.0-8.5 Office Visit: 3 MO F/U - Basic LDL target level 160 mg/dL Office Visit: 3 MO F/U - Chemistry HDL cholesterol, serum, target level 40 mg/dL triglyceride, target level 150 mg/dL cholesterol, target level 200 mg/dL Encounters Code Encounter Date Provider Facility CPT-62779 Level 4 Est. Patient 13:56:54 CDT Tesfaye pearson MD [facility] CPT-95371 Level 4 Est. Patient 13:24:25 CDT Stephanie MERCADO [facility] CPT-00103 Level 4 Est. Patient 09:14:56 CDT Tesfaye pearson MD [facility] CPT-59506 Level 4 Est. Patient 18:40:25 VACUUM PLASTIC FORMING MACHINE OPERATOR Tesfaye pearson MD [facility] CPT-89356 Level 4 Est. Patient 18:13:07 VACUUM P[employer]IC FORMING MACHINE OPERATOR Tesfaye pearson MD [facility] CPT-30446 Level 3 Est. Patient 10:46:32 CDT Rj cotto DO [facility]-61494 Level 4 Est. Patient 20:19:25 CDT Tesfaye pearson MD [facility]-41192 Level 3 Est. Patient 09:07:31 CDT Tesfaye pearson MD [facility]-32617 Level 4 Est. Patient 13:12:56 CDT Tesfaye pearson MD [facility]-10017 Level 4 Est. Patient 21:24:55 VACUUM P[employer]IC FORMING MACHINE OPERATOR Tesfaye pearson MD [facility]-38066 Level 3 Est. Patient 13:45:04 VACUUM PLASTIC FORMING MACHINE OPERATOR Tesfaye pearson MD [facility] CPT-78301 Level 4 Est. Patient 13:50:45 CDT Tesfaye pearson MD [facility] CPT-37796 Level 3 Est. Patient 10:16:10 CDT Tesfaye pearson MD [facility] CPT-06186 Level 3 Est. Patient 16:36:07 V[employer]UUM P[employer] FORMING MACHINE OPERATOR Kayla jameson MD [facility]-06333 Level 4 Est. Patient 16:00:14 VACUUM PLASTIC FORMING MACHINE OPERATOR Tesfaye pearson MD [facility]-71731 Level 4 Est. Patient 11:02:24 VACUUM PLASTIC FORMING MACHINE OPERATOR Tesfaye pearson MD [facility]-79120 Level 3 Est. Patient 20:21:43 VACUUM PLASTIC FORMING MACHINE OPERATOR Kayla jameson MD [facility]-94820 Level 3 Est. Patient 13:27:28 VACUUM PLASTIC FORMING MACHINE OPERATOR Kayla jameson MD [facility]-42662 Level 4 Est. Patient 15:57:17 VACUUM PLASTIC FORMING MACHINE OPERATOR Tesfaye pearson MD [facility] CPT-99611 Level 3 New Patient 13:25:47 CDT Tesfaye kidd MD [facility] CPT-80606 Level 3 New Patient 17:22:21 CDT Kayla angle MD [facility] Procedures Code Procedure Name Date Entry Date Standard Desc ription CPT-79470 Bone Density - XRAY USE ONLY 11:43:58 CDT 2 CPT-50737 Bone Density - XRAY USE ONLY 10:05:16 CDT 2 CPT-96635 Prv Med New Pt 40-64 yrs 18:19:25 CDT 2016 CPT-66441 Foot, right, comp min 3V - XRAY USE ONLY 10:38:34 CDT CPT-G0439 Subsequent Annual Wellness Exam 13:55:04 CDT CPT-G0438 Initial Annual Wellness Exam 11:23:17 CD T CPT-J2930 Solu Medrol 125 mg (Methyl Prednisolone Sodium Succinate) 17:29:12 VACUUM PLASTIC FORMING MACHINE OPERATOR CPT-71080 Abx/Therapy Injection 17:29:11 VACUUM PLASTIC FORMING MACHINE OPERATOR CPT-J2930 Solu Medrol 125 mg (Methyl Prednisolone Sodium Succinate) 12:34:38 VACUUM PLASTIC FORMING MACHINE OPERATOR CPT-J3420 Vitamin B12 1000mcg (Cyanocobalamin) 09:12:55 CDT CPT-J3420 Vitamin B12 1000mcg (Cyanocobalamin) 16:28:06 VACUUM PLASTIC FORMING MACHINE OPERATOR CPT-10644 Venipuncture Draw Fee 08:39:53 CDT CPT-J3420 Vitamin B12 1000mcg (Cyanocobalamin) 08:46:22 CDT CPT-97015 Abx/Therapy Injection 08:46:22 CDT CPT-J3420 Vitamin B12 1000mcg (Cyanocobalamin) 08:41:26 CDT CPT-11359 Abx/Therapy Injection 08:41:26 CDT CPT-J3420 Vitamin B12 1000mcg (Cyanocobalamin) 08:57:15 CDT CPT-68234 Abx/Therapy Injection 08:57:15 CDT CPT-J3420 Vitamin B12 1000mcg (Cyanocobalamin) 10:59:03 CDT CPT-25931 Abx/Therapy Injection 10:59:03 CDT CPT-J3420 Vitamin B12 1000mcg (Cyanocobalamin) 15:05:39 CDT CPT-55325 Abx/Therapy Injection 15:05:39 CDT CPT-J3420 Vitamin B12 1000mcg (Cyanocobalamin) 13:50:45 CDT CPT-J3420 Vitamin B12 1000mcg (Cyanocobalamin) 08:48:55 CDT CPT-16081 Abx/Therapy Injection 08:48:55 CDT CPT-J3420 Vitamin B12 1000mcg (Cyanocobalamin) 09:14:54 CDT CPT-09427 Abx/Therapy Injection 09:14:54 CDT CPT-J3420 Vitamin B12 1000mcg (Cyanocobalamin) 09:06:06 CDT CPT-02503 Abx/Therapy Injection 09:06:06 CDT CPT-J3420 Vitamin B12 1000mcg (Cyanocobalamin) 09:49:14 CDT CPT-62909 Abx/Therapy Injection 09:49:14 CDT CPT-J3420 Vitamin B12 1000mcg (Cyanocobalamin) 09:10:30 VACUUM PLASTIC FORMING MACHINE OPERATOR CPT-19406 Abx/Therapy Injection 09:10:30 VACUUM PLASTIC FORMING MACHINE OPERATOR CPT-J3420 Vitamin B12 1000mcg (Cyanocobalamin) 09:11:07 VACUUM PLASTIC FORMING MACHINE OPERATOR CPT-26365 Abx/Therapy Injection 09:11:07 VACUUM PLASTIC FORMING MACHINE OPERATOR CPT-J3420 Vitamin B12 1000mcg (Cyanocobalamin) 09:57:03 VACUUM PLASTIC FORMING MACHINE OPERATOR CPT-05133 Abx/Therapy Injection 09:57:03 VACUUM PLASTIC FORMING MACHINE OPERATOR CPT-J3420 Vitamin B12 1000mcg (Cyanocobalamin) 09:23:21 VACUUM PLASTIC FORMING MACHINE OPERATOR CPT-04413 Abx/Therapy Injection 09:23:21 VACUUM PLASTIC FORMING MACHINE OPERATOR CPT-66006 Urine Dip (Floor Use Only) 20:21:44 VACUUM PLASTIC FORMING MACHINE OPERATOR 201 02/12/11 CPT-26947 UA Dip Auto (Floor Use Only) 10:04:39 VACUUM PLASTIC FORMING MACHINE OPERATOR 2 CPT-76747 Urine Dip (Floor Use Only) 13:27:28 VACUUM PLASTIC FORMING MACHINE OPERATOR 201 02/12/01 CPT-34951 Bladder Scan 13:27:28 VACUUM PLASTIC FORMING MACHINE OPERATOR CPT-60889 Abd single AP View 14:30:51 VACUUM PLASTIC FORMING MACHINE OPERATOR CPT-OV Office Visit 10:15:43 CDT CPT-74367 Urine Dip (Floor Use Only) 17:22:21 CDT 201 02/09/02 CPT-74094 Bladder Scan 17:22:21 CDT
--- OUTSIDE RECORDS SUMMARY | 2020-05-05 11:44 | XMS REPORT | Clinical Summary ---
Author Author Talon, Jeri Wood Organization [facility] Address Unknown Phone Unavailable Allergies, Adverse [...] Tesfaye Sherman MD Other B- complex deficiencies Medication List Medication Instructions Start Date Stop Date Generic Name NDC Status Provider Patient Instruction VITAMIN D3 2000 UNIT TABS 1 daily, for vitamin D deficiency 2014 CHOLECALCIFEROL 70865599801 No Longer Active Tesfaye Sherman MD Active TIZANIDINE HCL 2 MG TABS take 1-2 tablet by mouth ev at bedtime at 9pm PRN TIZANIDINE HCL 83277089410 Active Tesfaye Owusu Active ZITHROMAX 250 MG TAB 2 po today, then 1 po q days 2-5 AZITHROMYCIN 00267497982 No Longer Active Tesfaye Sherman MD Acti ve BACTRIM DS 800-160 MG TAB 1 tab by mouth twice daily 2 TRIMETHOPRIM-SULFAMETHOXAZOLE 34377628471 No Longer Active Tesfaye Sherman MD Active PRELIEF 340 (65-50) MG (CA-P) ORAL TABS CALCIUM GLYCEROPHOSPHATE 85751743586 Active Tesfaye Sherman MD Active [facility] NIACIN FLUSH FREE 400-100 MG CAPS 1 daily NIACIN-INOSITOL 78432456684 Active Kayla Cooper MD Active DIFLUCAN 150 MG TABS 1 qd FLUCONAZOLE 20131 204424 No Longer Active Kayla Cooper MD Active FLUTICASONE PROPIONATE 50 MCG/ACT SUSP 1 spray each nostril twice daily FLUTICASONE PROPIONATE 47453572895 Active Tesfaye armenta MD Active LOVASTATIN 20 MG TABS Take 1 tablet by mouth daily LOVASTATIN 01664997642 No Longer Active Tesfaye Sherman MD Active MELOXICAM 7.5 MG TABS 1 tablet by mouth daily M ELOXICAM 66587736846 No Longer Active Tesfaye Sherman MD Active GABAPENTIN 300 MG CAPS Take two tablets by mouth every evening GABAPENTIN 39991285541 No Longer Active Edith Burch MD Active TRIMETHOPRIM 100 MG TABS 1/2 qd TRIMETHOPRIM 8944023 3001 Active Kayla Cooper MD Active OXYCODONE-ACETAMINOPHEN 5-325 MG TABS Take one tablet by mouth every 6 hours as needed. Max 12 tabs/day as needed OXYCODONE-ACETAMINOP HEN 15247501050 Active Tesfaye Sherman MD Active CYMBALTA 60 MG CPEP Take 1 tablet by mouth daily D ULOXETINE HCL 86174871591 Active Kayla Cooper MD Active CLONAZEPAM 0.5 MG TABS Take one tablet in the morning and 1.5 table t at 7pm CLONAZEPAM 89897360857 Active Kayla Cooper MD Active CETIRIZINE HCL 5 MG TABS Take 1 tablet by mouth daily CETIRIZINE HCL 22906014952 Active Kayla Cooper MD Active BACLOFEN 10 MG TABS Take one tablet by mouth three times a day BACLOFEN 84590167819 Active Kayla Cooper MD Active GABAPENTIN 300 MG CAPS Take two tablets by mouth every evening GABAPENTIN 300 MG CAPS 138540 GABAPENTIN Inactive MELOXICAM 7.5 MG TABS 1 tablet by mouth daily MELOXICAM 7.5 MG TABS 205883 MELOXICAM Inactive LOVASTATIN 20 MG TABS Take 1 tablet by mouth daily 201 02/12/20 LOVASTATIN 20 MG TABS 240812 LOVASTATIN Inactive DIFLUCAN 150 MG TABS 1 qd DIFLUCAN 150 MG T ABS 585557 FLUCONAZOLE Inactive VITAMIN D3 2000 UNIT TABS 1 daily, for vitamin D deficiency 2014 VITAMIN D3 2000 UNIT TABS CHOLECALCIFEROL Inacti ve BACTRIM DS 800-160 MG TAB 1 tab by mouth twice daily 2 BACTRIM DS 800-160 MG TAB TRIMETHOPRIM-SULFAMETHOXAZOLE Inac tive ZITHROMAX 250 MG TAB 2 po today, then 1 po q days 2-5 ZITHROMAX 250 MG TAB 2752476 AZITHROMYCIN Inactive Advance Directives Directive Description Start [...] Panel - Chemistry sodium, serum 138 mmol/L 914-357 2893/10/20 potassium, serum 4.5 mmol/L 3.5-5.2 chloride, serum [...] 0.90 mg/dL 0.00-1.00 cholesterol, serum 237 mg/dL 478-043 3610/10/20 triglyceride, serum, fasting 71 mg/dL 30-200 HDL [...] Panel - Chemistry cholesterol, serum 221 mg/dL 288-326 8704/01/23 triglyceride, serum, fasting 81 mg/dL 30-200 HDL [...] negative Encounters Code Encounter Date Provider Facility CPT-38681 Level 4 Est. Patient 13:50:45 CDT Tesfaye pearson MD [facility] CPT-79415 Level 3 Est. Patient 10:16:10 CDT Tesfaye pearson MD [facility] CPT-76059 Level 3 Est. Patient 16:36:07 ALTITUDE CHAMBER TECHNICIAN Kayla jameson MD [facility]-47552 Level 4 Est. Patient 16:00:14 ALTITUDE CHAMBER TECHNICIAN Tesfaye pearson MD [facility] CPT-90853 Level 4 Est. Patient 11:02:24 ALTITUDE CHAMBER TECHNICIAN eTsfaye perason MD [facility] CPT-80813 Level 3 Est. Patient 20:21:43 ALTITUDE CHAMBER TECHNICIAN Kayla jameson MD [facility] CPT-52755 Level 3 Est. Patient 13:27:28 ALTITUDE CHAMBER TECHNICIAN Kayla jameson MD [facility]-00025 Level 4 Est. Patient 15:57:17 ALTITUDE CHAMBER TECHNICIAN Tesfaye pearson MD [facility] CPT-94113 Level 3 New Patient 13:25:47 CDT eTsfaye kidd MD [facility] CPT-65621 Level 3 New Patient 17:22:21 CDT Kayla angel MD [facility] Procedures Code Procedure Name Date Entry Date Standard Desc ription CPT-J3420 Vitamin B12 1000mcg (Cyanocobalamin) 15:05:39 CDT CPT-45485 Abx/Therapy Injection 15:05:39 CDT CPT-J3420 Vitamin B12 1000mcg (Cyanocobalamin) 13:50:45 CDT CPT-J3420 Vitamin B12 1000mcg (Cyanocobalamin) 08:48:55 CDT CPT-02121 Abx/Therapy Injection 08:48:55 CDT CPT-J3420 Vitamin B12 1000mcg (Cyanocobalamin) 09:14:54 CDT CPT-95400 Abx/Therapy Injection 09:14:54 CDT CPT-J3420 Vitamin B12 1000mcg (Cyanocobalamin) 09:06:06 CDT CPT-36161 Abx/Therapy Injection 09:06:06 CDT CPT-J3420 Vitamin B12 1000mcg (Cyanocobalamin) 09:49:14 CDT CPT-92118 Abx/Therapy Injection 09:49:14 CDT CPT-J3420 Vitamin B12 1000mcg (Cyanocobalamin) 09:10:30 ALTITUDE CHAMBER TECHNICIAN CPT-58677 Abx/Therapy Injection 09:10:30 ALTITUDE CHAMBER TECHNICIAN CPT-J3420 Vitamin B12 1000mcg (Cyanocobalamin) 09:11:07 ALTITUDE CHAMBER TECHNICIAN CPT-61095 Abx/Therapy Injection 09:11:07 ALTITUDE CHAMBER TECHNICIAN CPT-J3420 Vitamin B12 1000mcg (Cyanocobalamin) 09:57:03 ALTITUDE CHAMBER TECHNICIAN CPT-96603 Abx/Therapy Injection 09:57:03 ALTITUDE CHAMBER TECHNICIAN CPT-J3420 Vitamin B12 1000mcg (Cyanocobalamin) 09:23:21 ALTITUDE CHAMBER TECHNICIAN CPT-34567 Abx/Therapy Injection 09:23:21 ALTITUDE CHAMBER TECHNICIAN CPT-64793 Urine Dip (Floor Use Only) 20:21:44 ALTITUDE CHAMBER TECHNICIAN 201 02/12/11 CPT-24445 UA Dip Auto (Floor Use Only) 10:04:39 ALTITUDE CHAMBER TECHNICIAN 2 CPT-34767 Urine Dip (Floor Use Only) 13:27:28 ALTITUDE CHAMBER TECHNICIAN 201 02/12/01 CPT-30711 Bladder Scan 13:27:28 ALTITUDE CHAMBER TECHNICIAN CPT-59236 Abd single AP View 14:30:51 ALTITUDE CHAMBER TECHNICIAN CPT-OV Office Visit 10:15:43 CDT CPT-88594 Urine Dip (Floor Use Only) 17:22:21 CDT 201 02/09/02 CPT-86475 Bladder Scan 17:22:21 CDT
--- OUTSIDE RECORDS SUMMARY | 2020-05-05 11:44 | XMS REPORT | Clinical Summary ---
Author Author Talon, Jeri Wood Organization [employer] Address Unknown Phone Unavailable Allergies, Adverse Reactions, [...] tate MD NAPROXLINNEA MEDLEY Critical Active Kayla Edward son BENADRYIsrael Critical Active Kayla tate MD ATIVAN [...] Sherman MD Dysuria Depression, major, recurrent 296.30 Active Tesfaye Sherman MD Major depressive disorder, recurrent epi sode, unspecified degree URI 465.9 Active Tesfaye Sherman MD Acute upper respiratory infections of unspecified site Osteopenia 733.90 Active Tesfaye Sherman MD Disorder of bone and cartilage, unspecified Medication List Medication Instructions Start Date Stop Date Generic Name NDC Status Provider Patient Instruction MECLIZINE HCL 25 MG ORAL TABLET one 4 times a day as needed for dizziness MECLIZINE HCL 21388438308 Active Laurence Raida Active DIFLUCAN 100 MG ORAL TABLET 1 tablet by mouth daily FLUCONAZOLE 79317361555 Active Laurence Raida Active AMOXICILLIN 500 MG ORAL CAPSULE 1 cap by mouth three times a day AMOXICILLIN 80282751126 No Longer Active Laurence Raida Acti ve VENLAFAXINE HCL 75 MG ORAL TABLET 1 am 1/2 at noon VENLAFAXINE HCL 91252140677 Active Tesfaye Sherman MD Active DIFLUCAN 100 MG ORAL TABLET 1 tablet by mouth daily 20 19/08/26 FLUCONAZOLE 26031978981 No Longer Active Tesfaye Sherman MD Acti ve BACTRIM DS 800-160 MG ORAL TABLET 1 tab by mouth twice daily 201 05/10/28 TRIMETHOPRIM-SULFAMETHOXAZOLE 42806981052 No Longer Active Fer Dominguez Active FOSAMAX 70 MG ORAL TABLET 1 po qweek. Take 30min prio r to first food/drink. Avoid lying down x 1 hour. ALENDRONATE SODIUM 99697115 144 No Longer Active Laurence Dominguez Active REPHRESH PRO-B ORAL CAPSULE 1 tablet daily LACT OBACILLUS 22827078142 Active Edith Burch MD Active CYMBALTA 60 MG ORAL CAPSULE DELAYED RELEASE PARTICLES Take 1 tablet by mouth daily DULOXETINE HCL 75232021017 No Longer Active Edith Burch MD Active CYMBALTA 30 MG ORAL CAPSULE DELAYED RELEASE PARTICLES 1 cap by mouth daily with 60mg DULOXETINE HCL 77232289758 No Longer Active Jordan Burch MD Active FISH OIL 1000 MG ORAL CAPSULE DELAYED RELEASE 1 pill b y mouth daily for cholesterol OMEGA-3 FATTY ACIDS 48201680619 Active Cee Jaffe LPN Active RED YEAST RICE 600 MG ORAL CAPSULE 1 pill by mouth daily RED YEAST RICE EXTRACT 25587561375 Active Rosa Jaffe LPN Activ e DIFLUCAN 100 MG ORAL TABLET 1 tablet by mouth daily 19/03/05 FLUCONAZOLE 51403678002 No Longer Active Tesfaye Sherman MD Acti ve BACTRIM DS 800-160 MG ORAL TABLET 1 tab by mouth twice daily 201 05/06/28 TRIMETHOPRIM-SULFAMETHOXAZOLE 87429841608 No Longer Active Umer Sherman MD Active BACTRIM DS 800-160 MG ORAL TABLET 1 tab by mouth twice daily 201 05/04/15 TRIMETHOPRIM-SULFAMETHOXAZOLE 54338996313 No Longer Active Umer Sherman MD Active DIFLUCAN 150 MG ORAL TABLET 1 tablet by mouth daily 20 18/09/20 FLUCONAZOLE 78952713795 No Longer Active Tesfaye Sherman MD Acti ve BACTRIM DS 800-160 MG ORAL TABLET 1 tab by mouth twice daily 201 04/13/17 TRIMETHOPRIM-SULFAMETHOXAZOLE 74046425938 No Longer Active Umer Sherman MD Active ROPINIROLE HCL 0.25 MG ORAL TABLET 1 TAB PO Q HS ROPINIROLE HCL 98206878859 Active Tesfaye Sherman MD Active CEFTIN 250 MG ORAL TABLET 1 tablet twice daily x 7 days CEFUROXIME AXETIL 52848068751 No Longer Active Tesfaye Sherman MD Active DIFLUCAN 100 MG ORAL TABLET 1 tablet by mouth every other da y for 2 doses FLUCONAZOLE 57799763063 No Longer Active Tesfaye barron MD Active DIFLUCAN 100 MG ORAL TABLET 1 tablet by mouth daily X 3 DAYS 201 04/09/01 FLUCONAZOLE 14139492223 No Longer Active Rj Moss DO Ac tive MIRTAZAPINE 15 MG ORAL TABLET 1/2 tab by mouth at bedtime. 03/13 MIRTAZAPINE 52626064069 No Longer Active Tesfaye Sherman MD Active BACTRIM DS 800-160 MG ORAL TABLET 1 tab by mouth twice daily 201 04/09/01 TRIMETHOPRIM-SULFAMETHOXAZOLE 99370913494 No Longer Active Umer Sherman MD Active PRAMIPEXOLE DIHYDROCHLORIDE 0.125 MG ORAL TABLET take 1 tablet po qhs for restless leg syndrome. PRAMIPEXOLE DIHYDROCHLORI DE 18961465650 No Longer Active Tesfaye Sherman MD Active MAGNESIUM 400 MG ORAL TABLET 1 tab po daily MAGNE SIUM 89156761035 Active Chelsea Barba APRN Active SUDAFED 24 HOUR 240 MG ORAL TABLET EXTENDED RELEASE 24 HOUR 1 tab po daily PSEUDOEPHEDRINE HCL 68491269962 Active Chelsea NAPOLES RN Active CETIRIZINE HCL 5 MG ORAL TABLET Take 1 tablet by mouth daily CETIRIZINE HCL 65006104626 No Longer Active Chelsea Barba APRN Ac tive TRIMETHOPRIM 100 MG ORAL TABLET 1/2 qd TRIM ETHOPRIM 32900307045 No Longer Active Chelsea Barba APRN Active BACTRIM DS 800-160 MG ORAL TABLET 1 tab by mouth twice daily 201 04/04/11 TRIMETHOPRIM-SULFAMETHOXAZOLE 24100913188 No Longer Active Umer Sherman MD Active BACTRIM DS 800-160 MG ORAL TABLET 1 tab by mouth twice daily X 10 DAYS TRIMETHOPRIM-SULFAMETHOXAZOLE 38381564155 No Longer Active Tesfaye Sherman MD Active AMOXICILLIN 500 MG ORAL CAPSULE 1 cap by mouth three times a day AMOXICILLIN 81340418385 No Longer Active Adriana Arnulfo Active MECLIZINE HCL 25 MG ORAL TABLET one tab po qday prn dizziness 09/08 MECLIZINE HCL 04598830120 Active Tesfaye Sherman MD Active B-12 1000 MCG ORAL LOZENGE 1 tab po daily CYANO COBALAMIN 14471507511 Active Tesfaye Sherman MD Active VITAMIN D3 2000 UNIT ORAL TABLET 1 daily, for vitamin D deficien cy CHOLECALCIFEROL 42101811016 No Longer Active Tesfaye Sherman MD Active TIZANIDINE HCL 2 MG ORAL TABLET take 1-2 tablet by mo ut every day at bedtime at 9pm PRN TIZANIDINE HCL 85594361961 Active Tesfaye hewitt MD Active ZITHROMAX 250 MG ORAL TABLET 2 po today, then 1 po q days 2-5 20 15/02/10 AZITHROMYCIN 73018078839 No Longer Active Tesfaye Sherman MD Active BACTRIM DS 800-160 MG ORAL TABLET 1 tab by mouth twice daily 201 03/03/23 TRIMETHOPRIM-SULFAMETHOXAZOLE 70857603813 No Longer Active Umer Sherman MD Active PRELIEF 340 (65-50) MG (CA-P) ORAL TABLET CALCIUM GLYCEROPHOSPHATE 80309375242 Active Tesfaye Sherman MD Acti ve [facility] NIACIN FLUSH FREE 400-100 MG ORAL CAPSULE 1 daily NIACIN-INOSITOL 66582746055 Active Kayla Cooper MD Activ e DIFLUCAN 150 MG ORAL TABLET 1 qd FLUCONAZOL E 45083591454 No Longer Active Kayla Cooper MD Active FLUTICASONE PROPIONATE 50 MCG/ACT NASAL SUSPENSION 1 spray each nostril twice daily FLUTICASONE PROPIONATE 64734292885 Active Umer Sherman MD Active LOVASTATIN 20 MG ORAL TABLET Take 1 tablet by mouth daily LOVASTATIN 01027305701 No Longer Active Tesfaye Sherman MD Acti ve MELOXICAM 7.5 MG ORAL TABLET 1 tablet by mouth daily 2 MELOXICAM 82225776903 No Longer Active Tesfaye Sherman MD Acti ve GABAPENTIN 300 MG ORAL CAPSULE Take two tablets by mouth every e vening GABAPENTIN 41799488269 No Longer Active Edith Burch MD A ctive OXYCODONE-ACETAMINOPHEN 5-325 MG ORAL TABLET Take one tablet by mouth every 6 hours as needed. Max 12 tabs/day as needed OXYCO DONE-ACETAMINOPHEN 65559251744 Active Tesfaye Sherman MD Active CLONAZEPAM 0.5 MG ORAL TABLET Take one tablet in the m orning and 1.5 tablet at 7pm CLONAZEPAM 32650345832 Active Kayla Cooper MD Active BACLOFEN 10 MG ORAL TABLET Take one tablet by mouth three times a d ay BACLOFEN 12103895325 Active Kayla Cooper MD Active GABAPENTIN 300 MG ORAL CAPSULE Take two tablets by mouth every e vening GABAPENTIN 300 MG ORAL CAPSULE 375077 GABAPENTIN I nactive MELOXICAM 7.5 MG ORAL TABLET 1 tablet by mouth daily 2 MELOXICAM 7.5 MG ORAL TABLET 591885 MELOXICAM Inactive LOVASTATIN 20 MG ORAL TABLET Take 1 tablet by mouth daily LOVASTATIN 20 MG ORAL TABLET 220769 LOVASTATIN Inactive DIFLUCAN 150 MG ORAL TABLET 1 qd DIFLUCAN 150 MG ORAL TABLET 586660 FLUCONAZOLE Inactive VITAMIN D3 2000 UNIT ORAL TABLET 1 daily, for vitamin D deficien cy VITAMIN D3 2000 UNIT ORAL TABLET CHOLECALCIFEROL Inactive AMOXICILLIN 500 MG ORAL CAPSULE 1 cap by mouth three times a day AMOXICILLIN 500 MG ORAL CAPSULE 451168 AMOXICILLIN Inactive BACTRIM DS 800-160 MG ORAL TABLET 1 tab by mouth twice daily X 10 DAYS BACTRIM DS 800-160 MG ORAL TABLET 19830105 TRIMETHOPRIM-SULFAMETHOXAZOLE Inactive TRIMETHOPRIM 100 MG ORAL TABLET 1/2 qd 7 TRIMETHOPRIM 100 MG ORAL TABLET 19830102 TRIMETHOPRIM Inactive CETIRIZINE HCL 5 MG ORAL TABLET Take 1 tablet by mouth daily CETIRIZINE HCL 5 MG ORAL TABLET 8305751 CETIRIZINE HCL Inactive PRAMIPEXOLE DIHYDROCHLORIDE 0.125 MG ORAL TABLET take 1 tablet po qhs for restless leg syndrome. PRAMIPEXOLE DIHYD ROCHLORIDE 0.125 MG ORAL TABLET 584171 PRAMIPEXOLE DIHYDROCHLORIDE Inactive MIRTAZAPINE 15 MG ORAL TABLET 1/2 tab by mouth at bedtime. 03/13 MIRTAZAPINE 15 MG ORAL TABLET 621489 MIRTAZAPINE In active DIFLUCAN 100 MG ORAL TABLET 1 tablet by mouth daily X 3 DAYS 201 04/09/01 DIFLUCAN 100 MG ORAL TABLET 074859 FLUCONAZOLE Inac tive DIFLUCAN 100 MG ORAL TABLET 1 tablet by mouth every other da y for 2 doses DIFLUCAN 100 MG ORAL TABLET 464708 FLUCONAZOLE Inactive CEFTIN 250 MG ORAL TABLET 1 tablet twice daily x 7 days CEFTIN 250 MG ORAL TABLET 163195 CEFUROXIME AXETIL Inactive CYMBALTA 30 MG ORAL CAPSULE DELAYED RELEASE PARTICLES 1 cap by mouth daily with 60mg CYMBALTA 30 MG ORAL CAPSULE DELAYED RELEASE PARTICLES 419187 DULOXETINE HCL Inactive CYMBALTA 60 MG ORAL CAPSULE DELAYED RELEASE PARTICLES Take 1 tablet by mouth daily CYMBALTA 60 MG ORAL CAPSULE DELAYED RELEA SE PARTICLES 292190 DULOXETINE HCL Inactive FOSAMAX 70 MG ORAL TABLET 1 po qweek. Take 30min prio r to first food/drink. Avoid lying down x 1 hour. FOSAMAX 70 MG ORAL TA BLET 631712 ALENDRONATE SODIUM Inactive DIFLUCAN 100 MG ORAL TABLET 1 tablet by mouth daily 19/08/26 DIFLUCAN 100 MG ORAL TABLET 437544 FLUCONAZOLE Inactive BACTRIM DS 800-160 MG ORAL TABLET 1 tab by mouth twice daily 201 03/03/23 BACTRIM DS 800-160 MG ORAL TABLET 534734 TRIMETHOPRIM-SULFAMETHOXAZOLE Inactive ZITHROMAX 250 MG ORAL TABLET 2 po today, then 1 po q days 2-5 20 15/02/10 ZITHROMAX 250 MG ORAL TABLET 024735 AZITHROMYCIN Mayela ctive BACTRIM DS 800-160 MG [...] 20 19/03/05 DIFLUCAN 100 MG ORAL TABLET 003623 FLUCONAZOLE Inactive BACTRIM DS 800-160 MG ORAL TABLET 1 tab by mouth twice daily 201 05/10/28 BACTRIM DS 800-160 MG ORAL TABLET 19830105 TRIMETHOPRIM-SULFAMETHOXAZOLE Inactive AMOXICILLIN 500 MG ORAL CAPSULE 1 cap by mouth three times a day AMOXICILLIN 500 MG ORAL CAPSULE 612965 AMOXICILLIN Inactive Advance Directives Directive Description Start Date PERMISSION TO SHARE DISCUSSED WITH PATIENT -- NO DECISION MADE DURABLE POWER OF BIN PILER FOR HEALTHCARE Vital Signs Date Name Value Unit Range Description blood pressure, diastolic 72 mm[Hg] BP lyon blood pressure, systolic 144 mm[Hg] BP sys height E&M 62 [in_us] Bdy height pulse rate E&M 74 /min Heart rate temperature E&M 97.6 [degF] Body temp erature weight E&M 119.5 [lb_av] Weight Measure d blood pressure, diastolic 86 mm[Hg] BP lyon [...] Description Lab Report: CBC W/DIFF - Hematology hemoglobin, blood 15.8 g/dL 12.0-16.0 hematocrit, blood 46.5 % 37.0-47.0 mean corpuscular volume, RBC 95 fL 80-97 mean corpuscular hemoglobin, RBC 32.3 pg 27. 0-31.2 mean corpuscular hemoglobin concentration, RBC 34.0 G/DL % 31.8-35.4 red blood cell distribution width 11.7 % 11 .6-14.8 platelet count 349 10^3/MM^3 10*3/mm3 583-027 4794/06/14 erythrocyte (RBC) count 4.91 10^6/MM^3 10*6/mm3 3.80-5.8 0 lymphocytes as percent of blood leukocytes 28.7 % 20.5-51.1 monocytes as percent of blood leukocytes 8.7 % 1.7-9.3 neutrophils as percent of blood leukocytes 56.3 % 42.2-75.2 leukocyte count, blood 8.8 10^3/MM^3 10*3/mm3 4.6-10.2 Lab Report: Comp. Metabolic Panel, Lipid Panel, Thyroid Stimulating Horm ... - Chemistry sodium, serum 144 mmol/L 910-708 4926/06/14 creatinine, serum 0.67 mg/dL 0.55-1.30 alanine aminotransferase (SGPT), serum 24 U/L 12-78 aspartate aminotransferase (SGOT), serum 15 U/L 15-37 calcium, serum 9.3 mg/dL 8.5-10.1 bilirubin, serum, total 0.50 mg/dL 0.00-1.00 cholesterol, serum 268 mg/dL 707-844 7189/06/14 triglyceride, serum, fasting 126 mg/dL 30-200 HDL cholesterol, serum 51 mg/dL 32-96 LDL cholesterol, serum 192 mg/dL 0-130 TSH 0.83 m[iU]/mL 0.36-3.74 thyroxine, serum, free 1.03 ng/dL 0.76-1.46 uric acid, serum 3.2 mg/dL 2.6-7.2 carbon dioxide, venous blood 29.4 mmol/L 21.0-32 .0 potassium, serum 4.4 mmol/L 3.5-5.2 chloride, serum 108 mmol/L 98-107 blood glucose 100 mg/dL 65-110 urea nitrogen, blood 9 mg/dL 7-18 Lab Report: UADIP W/MICRO, AUTO - Chemis [...] mg/dL Encounters Code Encounter Date Provider Facility CPT-55921 Level 4 Est. Patient 17:07:34 CRITICAL CARE NURSE Tesfaye pearson MD [facility] CPT-27141 Level 4 Est. Patient 13:56:54 CDT Tesfaye pearson MD [facility] CPT-74871 Level 4 Est. Patient 13:24:25 CDT Stephanie MERCADO [facility] CPT-34567 Level 4 Est. Patient 09:14:56 CDT Tesfaye pearson MD [facility] CPT-22084 Level 4 Est. Patient 18:40:25 CRITICAL CARE NURSE Tesfaye pearson MD [facility] CPT-62477 Level 4 Est. Patient 18:13:07 CRITICAL CARE NURSE Tesfaye pearson MD [facility] CPT-45474 Level 3 Est. Patient 10:46:32 CDT Rj cotto DO [facility] CPT-96544 Level 4 Est. Patient 20:19:25 CDT Tesfaye pearson MD [facility] CPT-34958 Level 3 Est. Patient 09:07:31 CDT Tesfaye pearson MD [facility]-00939 Level 4 Est. Patient 13:12:56 CDT Tesfaye pearson MD [facility]-12544 Level 4 Est. Patient 21:24:55 CRITICAL CARE NURSE Tesfaye pearson MD [facility]-11398 Level 3 Est. Patient 13:45:04 CRITICAL CARE NURSE Tesfaye pearson MD [facility] CPT-09991 Level 4 Est. Patient 13:50:45 CDT Tesfaye pearson MD [facility]-83031 Level 3 Est. Patient 10:16:10 CDT Tesfaye pearson MD [facility]-30825 Level 3 Est. Patient 16:36:07 CRITICAL CARE NURSE Kayla jameson MD [facility]-78470 Level 4 Est. Patient 16:00:14 CRITICAL CARE NURSE Tesfaye pearson MD [facility]-60826 Level 4 Est. Patient 11:02:24 CRITICAL CARE NURSE Tesfaye pearson MD [facility]-03019 Level 3 Est. Patient 20:21:43 CRITICAL CARE NURSE Kayla jameson MD [facility]-34826 Level 3 Est. Patient 13:27:28 CRITICAL CARE NURSE Kayla jameson MD [facility]-88130 Level 4 Est. Patient 15:57:17 CRITICAL CARE NURSE Tesfaye pearson MD [facility] CPT-91363 Level 3 New Patient 13:25:47 CDT Tesfaye kidd MD [facility] CPT-18205 Level 3 New Patient 17:22:21 CDT Kayla angel MD [facility] Procedures Code Procedure Name Date Entry Date Standard Desc ription CPT-60686 Bone Density - XRAY USE ONLY 11:43:58 CDT 2 CPT-52285 Bone Density - XRAY USE ONLY 10:05:16 CDT 2 CPT-37420 Prv Med New Pt 40-64 yrs 18:19:25 CDT 2016 CPT-87224 Foot, right, comp min 3V - XRAY USE ONLY 10:38:34 CDT CPT-G0439 Subsequent Annual Wellness Exam 13:55:04 CDT CPT-G0438 Initial Annual Wellness Exam 11:23:17 CD T CPT-J2930 Solu Medrol 125 mg (Methyl Prednisolone Sodium Succinate) 17:29:12 CRITICAL CARE NURSE CPT-10967 Abx/Therapy Injection 17:29:11 CRITICAL CARE NURSE CPT-J2930 Solu Medrol 125 mg (Methyl Prednisolone Sodium Succinate) 12:34:38 CRITICAL CARE NURSE CPT-J3420 Vitamin B12 1000mcg (Cyanocobalamin) 09:12:55 CDT CPT-J3420 Vitamin B12 1000mcg (Cyanocobalamin) 16:28:06 CRITICAL CARE NURSE CPT-41688 Venipuncture Draw Fee 08:39:53 CDT CPT-J3420 Vitamin B12 1000mcg (Cyanocobalamin) 08:46:22 CDT CPT-76382 Abx/Therapy Injection 08:46:22 CDT CPT-J3420 Vitamin B12 1000mcg (Cyanocobalamin) 08:41:26 CDT CPT-47090 Abx/Therapy Injection 08:41:26 CDT CPT-J3420 Vitamin B12 1000mcg (Cyanocobalamin) 08:57:15 CDT CPT-75263 Abx/Therapy Injection 08:57:15 CDT CPT-J3420 Vitamin B12 1000mcg (Cyanocobalamin) 10:59:03 CDT CPT-90536 Abx/Therapy Injection 10:59:03 CDT CPT-J3420 Vitamin B12 1000mcg (Cyanocobalamin) 15:05:39 CDT CPT-60544 Abx/Therapy Injection 15:05:39 CDT CPT-J3420 Vitamin B12 1000mcg (Cyanocobalamin) 13:50:45 CDT CPT-J3420 Vitamin B12 1000mcg (Cyanocobalamin) 08:48:55 CDT CPT-76926 Abx/Therapy Injection 08:48:55 CDT CPT-J3420 Vitamin B12 1000mcg (Cyanocobalamin) 09:14:54 CDT CPT-69683 Abx/Therapy Injection 09:14:54 CDT CPT-J3420 Vitamin B12 1000mcg (Cyanocobalamin) 09:06:06 CDT CPT-81211 Abx/Therapy Injection 09:06:06 CDT CPT-J3420 Vitamin B12 1000mcg (Cyanocobalamin) 09:49:14 CDT CPT-98448 Abx/Therapy Injection 09:49:14 CDT CPT-J3420 Vitamin B12 1000mcg (Cyanocobalamin) 09:10:30 CRITICAL CARE NURSE CPT-70448 Abx/Therapy Injection 09:10:30 CRITICAL CARE NURSE CPT-J3420 Vitamin B12 1000mcg (Cyanocobalamin) 09:11:07 CRITICAL CARE NURSE CPT-23137 Abx/Therapy Injection 09:11:07 CRITICAL CARE NURSE CPT-J3420 Vitamin B12 1000mcg (Cyanocobalamin) 09:57:03 CRITICAL CARE NURSE CPT-63239 Abx/Therapy Injection 09:57:03 CRITICAL CARE NURSE CPT-J3420 Vitamin B12 1000mcg (Cyanocobalamin) 09:23:21 CRITICAL CARE NURSE CPT-16386 Abx/Therapy Injection 09:23:21 CRITICAL CARE NURSE CPT-72976 Urine Dip (Floor Use Only) 20:21:44 CRITICAL CARE NURSE 201 02/12/11 CPT-54630 UA Dip Auto (Floor Use Only) 10:04:39 CRITICAL CARE NURSE 2 CPT-24697 Urine Dip (Floor Use Only) 13:27:28 CRITICAL CARE NURSE 201 02/12/01 CPT-29032 Bladder Scan 13:27:28 CRITICAL CARE NURSE CPT-39013 Abd single AP View 14:30:51 CRITICAL CARE NURSE CPT-OV Office Visit 10:15:43 CDT CPT-49278 Urine Dip (Floor Use Only) 17:22:21 CDT 201 02/09/02 CPT-75949 Bladder Scan 17:22:21 CDT
--- OUTSIDE RECORDS SUMMARY | 2020-05-05 11:44 | XMS REPORT | Clinical Summary ---
Author Author Talon, Jeri Wood Organization [employer] Address Unknown Phone Unavailable Allergies, Adverse Reactions, [...] Active Edith Burch MD Tobacco use disorder Medication List Medication Instructions Start Date Stop Date Generic Name NDC Status Provider Patient Instruction FOSAMAX 70 MG TABS 1 po qweek. Take 30min prio r to first food/drink. Avoid lying down x 1 hour. ALENDRONATE SODIUM [id number] Active Tesfaye Sherman MD Active REPHRESH PRO-B ORAL CAPS 1 tablet daily LACTOBACI LLUS 50963861660 Active Edith Burch MD Active CYMBALTA 60 MG CPEP Take 1 tablet by mouth daily 1 DULOXETINE HCL 31015222647 No Longer Active Edith Burch MD Active CYMBALTA 30 MG CPEP 1 cap by mouth daily with 60mg 201 05/09/11 DULOXETINE HCL 49026995004 No Longer Active Edith Burch MD Activ e FISH OIL 1000 MG CPDR 1 pill by mouth daily for cholesterol 04/18 OMEGA- 3 FATTY ACIDS 97646334996 Active Rosa Jaffe LPN Acti ve RED YEAST RICE 600 MG CAPS 1 pill by mouth daily RED YEAST RICE EXTRACT 39319384906 Active Rosa Jaffe LPN Activ e VENLAFAXINE HCL 37.5 MG TABS 1/4 tab po titrating up to full dose 2 VENLAFAXINE HCL 95023065791 Active Chelsea Barba APRN Activ e DIFLUCAN 100 MG TAB 1 tablet by mouth daily FLU CONAZOLE 24092565911 No Longer Active Tesfaye Sherman MD Active BACTRIM DS 800-160 MG TAB 1 tab by mouth twice daily 2 TRIMETHOPRIM-SULFAMETHOXAZOLE 23752496844 No Longer Active Tesfaye Sherman MD Active BACTRIM DS 800-160 MG TAB 1 tab by mouth twice daily 2 TRIMETHOPRIM-SULFAMETHOXAZOLE 13714111808 No Longer Active Tesfaye Sherman MD Active DIFLUCAN 150 MG TAB 1 tablet by mouth daily FLU CONAZOLE 13262512759 No Longer Active Tesfaye Sherman MD Active BACTRIM DS 800-160 MG TAB 1 tab by mouth twice daily 2 TRIMETHOPRIM-SULFAMETHOXAZOLE 54108519440 No Longer Active Tesfaye Sherman MD Active ROPINIROLE HCL 0.25 MG ORAL TABS 1 TAB PO Q HS ROPINIROLE HCL 00732117047 Active Tesfaye Sherman MD Active CEFTIN 250 MG TAB 1 tablet twice daily x 7 days 11/19 CEFUROXIME AXETIL 66758445806 No Longer Active Tesfaye Sherman MD Acti ve DIFLUCAN 100 MG TABS 1 tablet by mouth every other day for 2 dos es FLUCONAZOLE 15416812013 No Longer Active Tesfaye Sherman MD Active DIFLUCAN 100 MG TAB 1 tablet by mouth daily X 3 DAYS 2 FLUCONAZOLE 86445446991 No Longer Active Rj Moss DO Active MIRTAZAPINE 15 MG ORAL TABS 1/2 tab by mouth at bedtime. MIRTAZAPINE 20094432008 No Longer Active Tesfaye Sherman MD Acti ve BACTRIM DS 800-160 MG TAB 1 tab by mouth twice daily 2 TRIMETHOPRIM-SULFAMETHOXAZOLE 92313157564 No Longer Active Tesfaye Sherman MD Active PRAMIPEXOLE DIHYDROCHLORIDE 0.125 MG ORAL TABS take 1 tablet po qhs for restless leg syndrome. PRAMIPEXOLE DIHYDROCHLORIDE 49001111888 No Longer Active Tesfaye Sherman MD Active MAGNESIUM 400 MG ORAL TABS 1 tab po daily MAGNESI UM 22703925652 Active Chelsea Barba APRN Active SUDAFED 24 HOUR 240 MG ORAL IR87O-VEX 1 tab po daily PSEUDOEPHEDRINE HCL 14383431622 Active Chelsea Barba APRN A ctive CETIRIZINE HCL 5 MG TABS Take 1 tablet by mouth daily CETIRIZINE HCL 14942238724 No Longer Active Chelsea Barba APRN Acti ve TRIMETHOPRIM 100 MG TABS 1/2 qd TRIMETHOPRIM 73015411413 No Longer Active Chelsea Barba APRN Active BACTRIM DS 800-160 MG TAB 1 tab by mouth twice daily 2 TRIMETHOPRIM-SULFAMETHOXAZOLE 47711986912 No Longer Active Tesfaye Sherman MD Active BACTRIM DS 800-160 MG TAB 1 tab by mouth twice daily X 10 DAYS 2 TRIMETHOPRIM-SULFAMETHOXAZOLE 78398410080 No Longer Active Umer Sherman MD Active AMOXICILLIN 500 MG CAPS 1 cap by mouth three times a day AMOXICILLIN 89127618315 No Longer Active Adriana Arredondo Active MECLIZINE HCL 25 MG TAB one tab po qday prn dizziness MECLIZINE HCL 48659369073 Active Tesfaye Sherman MD Active B-12 1000 MCG ORAL LOZG 1 tab po daily CYANOCOBAL STANTON 91021654192 Active Tesfaye Sherman MD Active VITAMIN D3 2000 UNIT TABS 1 daily, for vitamin D deficiency 2014 CHOLECALCIFEROL 41872912661 No Longer Active Tesfaye Sherman MD Active TIZANIDINE HCL 2 MG TABS take 1-2 tablet by mouth at bedtime at 9pm PRN TIZANIDINE HCL 95805040853 Active Tesfaye Owusu Active ZITHROMAX 250 MG TAB 2 po today, then 1 po q days 2-5 AZITHROMYCIN 01478809772 No Longer Active Tesfaye Sherman MD Acti ve BACTRIM DS 800-160 MG TAB 1 tab by mouth twice daily 2 TRIMETHOPRIM-SULFAMETHOXAZOLE 63369834724 No Longer Active Tesfaye Sherman MD Active PRELIEF 340 (65-50) MG (CA-P) ORAL TABS CALCIUM GLYCEROPHOSPHATE 90606507665 Active Tesfaye Sherman MD Active [facility] NIACIN FLUSH FREE 400-100 MG CAPS 1 daily NIACIN-INOSITOL 14139713858 Active Kayla Cooper MD Active DIFLUCAN 150 MG TABS 1 qd FLUCONAZOLE 87065 214881 No Longer Active Kayla Cooper MD Active FLUTICASONE PROPIONATE 50 MCG/ACT SUSP 1 spray each nostril twice daily FLUTICASONE PROPIONATE 89625125451 Active Tesfaye armenta MD Active LOVASTATIN 20 MG TABS Take 1 tablet by mouth daily LOVASTATIN 07511413159 No Longer Active Tesfaye Sherman MD Active MELOXICAM 7.5 MG TABS 1 tablet by mouth daily M ELOXICAM 38130453664 No Longer Active Tesfaye Sherman MD Active GABAPENTIN 300 MG CAPS Take two tablets by mouth every evening GABAPENTIN 43801070934 No Longer Active Edith Bruch MD Active OXYCODONE-ACETAMINOPHEN 5-325 MG TABS Take one tablet by mouth every 6 hours as needed. Max 12 tabs/day as needed OXYCODONE-ACETAMINOP HEN 34270590908 Active Tesfaye Sherman MD Active CLONAZEPAM 0.5 MG TABS Take one tablet in the morning and 1.5 table t at 7pm CLONAZEPAM 70584563107 Active Kayla Cooper MD Active BACLOFEN 10 MG TABS Take one tablet by mouth three times a day BACLOFEN 39802577764 Active Kayla Cooper MD Active GABAPENTIN 300 MG CAPS Take two tablets by mouth every evening GABAPENTIN 300 MG CAPS 840272 GABAPENTIN Inactive MELOXICAM 7.5 MG TABS 1 tablet by mouth daily MELOXICAM 7.5 MG TABS 176508 MELOXICAM Inactive LOVASTATIN 20 MG TABS Take 1 tablet by mouth daily 201 02/12/20 LOVASTATIN 20 MG TABS 788553 LOVASTATIN Inactive DIFLUCAN 150 MG TABS 1 qd DIFLUCAN 150 MG T ABS 500954 FLUCONAZOLE Inactive VITAMIN D3 2000 UNIT TABS 1 daily, for vitamin D deficiency 2014 VITAMIN D3 2000 UNIT TABS CHOLECALCIFEROL Inacti ve AMOXICILLIN 500 MG CAPS 1 cap by mouth three times a day AMOXICILLIN 500 MG CAPS 138952 AMOXICILLIN Inactive BACTRIM DS 800-160 MG TAB 1 tab by mouth twice daily X 10 DAYS 2 BACTRIM DS 800-160 MG TAB 19830105 TRIMETHOPRIM-SULFAMETH OXAZOLE Inactive TRIMETHOPRIM 100 MG TABS 1/2 qd TRIMETHOPRI M 100 MG TABS 19830102 TRIMETHOPRIM Inactive CETIRIZINE HCL 5 MG TABS Take 1 tablet by mouth daily CETIRIZINE HCL 5 MG TABS 2376112 CETIRIZINE HCL Inactive PRAMIPEXOLE DIHYDROCHLORIDE 0.125 MG ORAL TABS take 1 tablet po qhs for restless leg syndrome. PRAMIPEXOLE DIHYDROC HLORIDE 0.125 MG ORAL TABS 329152 PRAMIPEXOLE DIHYDROCHLORIDE Inactive MIRTAZAPINE 15 MG ORAL TABS 1/2 tab by mouth at bedtime. MIRTAZAPINE 15 MG ORAL TABS 482563 MIRTAZAPINE Inactive DIFLUCAN 100 MG TAB 1 tablet by mouth daily X 3 DAYS 2 DIFLUCAN 100 MG TAB 017836 FLUCONAZOLE Inactive DIFLUCAN 100 MG TABS 1 tablet by mouth every other day for 2 dos es DIFLUCAN 100 MG TABS 130077 FLUCONAZOLE Inactive CEFTIN 250 MG TAB 1 tablet twice daily x 7 days 11/19 CEFTIN 250 MG TAB 178082 CEFUROXIME AXETIL Inactive CYMBALTA 30 MG CPEP 1 cap by mouth daily with 60mg 201 05/09/11 CYMBALTA 30 MG CPEP 285111 DULOXETINE HCL Inactive CYMBALTA 60 MG CPEP Take 1 tablet by mouth daily 05/13 CYMBALTA 60 MG CPEP 264711 DULOXETINE HCL Inactive BACTRIM DS 800-160 MG TAB 1 tab by mouth twice daily 2 BACTRIM DS 800-160 MG TAB 19830105 TRIMETHOPRIM-SULFAMETHOXAZOLE Inac tive ZITHROMAX 250 MG TAB 2 po today, then 1 po q days 2-5 ZITHROMAX 250 MG TAB 3846733 AZITHROMYCIN Inactive BACTRIM DS 800-160 MG TAB [...] by mouth daily DIFLUCAN 150 MG TAB 963632 FLUCONAZOLE Inactive BACTRIM DS 800-160 MG TAB 1 tab by mouth twice daily 2 BACTRIM DS 800-160 MG TAB 19830105 TRIMETHOPRIM-SULFAMETHOXAZOLE Inac tive BACTRIM DS 800-160 MG TAB 1 tab by mouth twice daily 2 BACTRIM DS 800-160 MG TAB 19830105 TRIMETHOPRIM-SULFAMETHOXAZOLE Inac tive DIFLUCAN 100 MG TAB 1 tablet by mouth daily DIFLUCAN 100 MG TAB 577480 FLUCONAZOLE Inactive Advance Directives Directive Description Start [...] 85 mm[Hg] BP lyon blood pressure, systolic 155 mm[Hg] BP sys pulse rate E&M 69 /min Heart rate temperature E&M 98.2 [degF] Body temp erature weight E&M 125.0 [lb_av] Weight Measure d blood pressure, diastolic 87 mm[Hg] BP lyon blood pressure, systolic 147 mm[Hg] BP sys pulse rate E&M 93 /min Heart rate temperature E&M 99.0 [degF] Body temp erature weight E&M 130.5 [lb_av] Weight Measure d Diagnostic Results Date Name Value Unit Range Description Append: Nurse Note - Chemistry RBC, urine, dipstick non-hemolyzed trace protein, total urine random negative mg/dL Append: Nurse Note - Urinalysis specific gravity, urine 1.005 pH, urine, semiquantitative 6 urinalysis, routine Clean Catch culture status No ketones, urine, by test strip negative bilirubin, urine negative glucose, urine, semiquantitative negative urine color yellow appearance, urine clear leukocyte [...] ... - Chemistry sodium, serum 144 mmol/L 015-240 5399/06/14 carbon dioxide, venous blood 29.4 mmol/L 21.0-32 .0 potassium, serum 4.4 mmol/L 3.5-5.2 chloride, serum 108 mmol/L 98-107 blood glucose 100 mg/dL 65-110 urea nitrogen, blood 9 mg/dL 7-18 creatinine, serum 0.67 mg/dL 0.55-1.30 alanine aminotransferase (SGPT), serum 24 U/L 12-78 aspartate aminotransferase (SGOT), serum 15 U/L 15-37 calcium, serum 9.3 mg/dL 8.5-10.1 bilirubin, serum, total 0.50 mg/dL 0.00-1.00 cholesterol, serum 268 mg/dL 172-260 0410/06/14 triglyceride, serum, fasting 126 mg/dL 30-200 HDL cholesterol, serum 51 mg/dL 32-96 LDL cholesterol, serum 192 mg/dL 0-130 TSH 0.83 m[iU]/mL 0.36-3.74 thyroxine, serum, free 1.03 ng/dL 0.76-1.46 uric acid, serum 3.2 mg/dL 2.6-7.2 Lab Report: UA DIP/MANUAL - Chemistry protein, [...] 1.005 1.000-1.030 pH, urine, semiquantitative 6.0 5.0-8.5 Office Visit: 3 MO F/U - Basic LDL target level 160 mg/dL Office Visit: 3 MO F/U - Chemistry HDL cholesterol, serum, target level 40 mg/dL triglyceride, target level 150 mg/dL cholesterol, target level 200 mg/dL Office Visit: 3 MONTH FU - Basic LDL target level 160 mg/dL Office Visit: 3 MONTH FU - Chemistry HDL cholesterol, serum, target level 40 mg/dL triglyceride, target level 150 mg/dL cholesterol, target level 200 mg/dL Encounters Code Encounter Date Provider Facility CPT-84420 Level 4 Est. Patient 13:56:54 CDT Tesfaye pearson MD [facility] CPT-30750 Level 4 Est. Patient 13:24:25 CDT Stephanie MERCADO [facility] CPT-78573 Level 4 Est. Patient 09:14:56 CDT Tesfaye pearson MD [facility]-89094 Level 4 Est. Patient 18:40:25 CYLINDRICAL MIXER Tesfaye pearson MD [facility]-32944 Level 4 Est. Patient 18:13:07 CYLINDRICAL MIXER Tesfaye pearson MD [facility]-20852 Level 3 Est. Patient 10:46:32 CDT Rj cotto DO [facility]-79148 Level 4 Est. Patient 20:19:25 CDT Tesfaye pearson MD [facility]-92599 Level 3 Est. Patient 09:07:31 CDT Tesfaye pearson MD [facility]-78154 Level 4 Est. Patient 13:12:56 CDT Tesfaye pearson MD [facility]-82140 Level 4 Est. Patient 21:24:55 CYLINDRICAL MIXER Tesfaye pearson MD [facility]-47954 Level 3 Est. Patient 13:45:04 CYLINDRICAL MIXER Tesfaye pearson MD [facility] CPT-46297 Level 4 Est. Patient 13:50:45 CDT Tesfaye pearson MD [facility] CPT-16933 Level 3 Est. Patient 10:16:10 CDT Tesfaye pearson MD [facility] CPT-06217 Level 3 Est. Patient 16:36:07 CYLINDRICAL MIXER Kayla jameson MD [facility]-81207 Level 4 Est. Patient 16:00:14 CYLINDRICAL MIXER Tesfaye pearson MD [facility]-62871 Level 4 Est. Patient 11:02:24 CYLINDRICAL MIXER Tesfaye pearson MD [facility]-93011 Level 3 Est. Patient 20:21:43 CYLINDRICAL MIXER Kayla jameson MD [facility]-44072 Level 3 Est. Patient 13:27:28 CYLINDRICAL MIXER Kayla jameson MD [facility] CPT-01478 Level 4 Est. Patient 15:57:17 CYLINDRICAL MIXER Tesfaye pearson MD [facility] CPT-36000 Level 3 New Patient 13:25:47 CDT Tesfaye ikdd MD [facility] CPT-36295 Level 3 New Patient 17:22:21 CDT Kayla angel MD [facility] Procedures Code Procedure Name Date Entry Date Standard Desc ription CPT-81891 Bone Density - XRAY USE ONLY 11:43:58 CDT 2 CPT-84182 Bone Density - XRAY USE ONLY 10:05:16 CDT 2 CPT-59890 Prv Med New Pt 40-64 yrs 18:19:25 CDT 2016 CPT-36548 Foot, right, comp min 3V - XRAY USE ONLY 10:38:34 CDT CPT-G0439 Subsequent Annual Wellness Exam 13:55:04 CDT CPT-G0438 Initial Annual Wellness Exam 11:23:17 CD T CPT-J2930 Solu Medrol 125 mg (Methyl Prednisolone Sodium Succinate) 17:29:12 CYLINDRICAL MIXER CPT-99762 Abx/Therapy Injection 17:29:11 CYLINDRICAL MIXER CPT-J2930 Solu Medrol 125 mg (Methyl Prednisolone Sodium Succinate) 12:34:38 CYLINDRICAL MIXER CPT-J3420 Vitamin B12 1000mcg (Cyanocobalamin) 09:12:55 CDT CPT-J3420 Vitamin B12 1000mcg (Cyanocobalamin) 16:28:06 CYLINDRICAL MIXER CPT-92010 Venipuncture Draw Fee 08:39:53 CDT CPT-J3420 Vitamin B12 1000mcg (Cyanocobalamin) 08:46:22 CDT CPT-53548 Abx/Therapy Injection 08:46:22 CDT CPT-J3420 Vitamin B12 1000mcg (Cyanocobalamin) 08:41:26 CDT CPT-00458 Abx/Therapy Injection 08:41:26 CDT CPT-J3420 Vitamin B12 1000mcg (Cyanocobalamin) 08:57:15 CDT CPT-79946 Abx/Therapy Injection 08:57:15 CDT CPT-J3420 Vitamin B12 1000mcg (Cyanocobalamin) 10:59:03 CDT CPT-62104 Abx/Therapy Injection 10:59:03 CDT CPT-J3420 Vitamin B12 1000mcg (Cyanocobalamin) 15:05:39 CDT CPT-53846 Abx/Therapy Injection 15:05:39 CDT CPT-J3420 Vitamin B12 1000mcg (Cyanocobalamin) 13:50:45 CDT CPT-J3420 Vitamin B12 1000mcg (Cyanocobalamin) 08:48:55 CDT CPT-00583 Abx/Therapy Injection 08:48:55 CDT CPT-J3420 Vitamin B12 1000mcg (Cyanocobalamin) 09:14:54 CDT CPT-54837 Abx/Therapy Injection 09:14:54 CDT CPT-J3420 Vitamin B12 1000mcg (Cyanocobalamin) 09:06:06 CDT CPT-22529 Abx/Therapy Injection 09:06:06 CDT CPT-J3420 Vitamin B12 1000mcg (Cyanocobalamin) 09:49:14 CDT CPT-10855 Abx/Therapy Injection 09:49:14 CDT CPT-J3420 Vitamin B12 1000mcg (Cyanocobalamin) 09:10:30 CYLINDRICAL MIXER CPT-82425 Abx/Therapy Injection 09:10:30 CYLINDRICAL MIXER CPT-J3420 Vitamin B12 1000mcg (Cyanocobalamin) 09:11:07 CYLINDRICAL MIXER CPT-21017 Abx/Therapy Injection 09:11:07 CYLINDRICAL MIXER CPT-J3420 Vitamin B12 1000mcg (Cyanocobalamin) 09:57:03 CYLINDRICAL MIXER CPT-65522 Abx/Therapy Injection 09:57:03 CYLINDRICAL MIXER CPT-J3420 Vitamin B12 1000mcg (Cyanocobalamin) 09:23:21 CYLINDRICAL MIXER CPT-38496 Abx/Therapy Injection 09:23:21 CYLINDRICAL MIXER CPT-22397 Urine Dip (Floor Use Only) 20:21:44 CYLINDRICAL MIXER 201 02/12/11 CPT-82910 UA Dip Auto (Floor Use Only) 10:04:39 CYLINDRICAL MIXER 2 CPT-42698 Urine Dip (Floor Use Only) 13:27:28 CYLINDRICAL MIXER 201 02/12/01 CPT-04934 Bladder Scan 13:27:28 CYLINDRICAL MIXER CPT-14107 Abd single AP View 14:30:51 CYLINDRICAL MIXER CPT-OV Office Visit 10:15:43 CDT CPT-72639 Urine Dip (Floor Use Only) 17:22:21 CDT 201 02/09/02 CPT-17691 Bladder Scan 17:22:21 CDT
--- OUTSIDE RECORDS SUMMARY | 2020-05-05 11:45 | XMS REPORT | Clinical Summary ---
Author Author Jeri Hanley Organization [employer] [place] Address Unknown Phone Unavailable Allergies, Adverse Reactions, [...] Generic Name NDC Status Provider Patient Instruction REPHRESH PRO-B ORAL CAPS 1 tablet daily LACTOBACI LLUS [id number] Active Edith Burch MD Active CYMBALTA 60 MG CPEP Take 1 tablet by mouth daily 1 DULOXETINE HCL 09289145357 No Longer Active Edith Burch MD Active CYMBALTA 30 MG CPEP 1 cap by mouth daily with 60mg 201 05/09/11 DULOXETINE HCL 63397410473 No Longer Active Edith Burch MD Activ e FISH OIL 1000 MG CPDR 1 pill by mouth daily for cholesterol 04/18 OMEGA- 3 FATTY ACIDS 92695805776 Active Rosa Jaffe LPN Acti ve RED YEAST RICE 600 MG CAPS 1 pill by mouth daily RED YEAST RICE EXTRACT 73322090833 Active Rosa Jaffe LPN Activ e VENLAFAXINE HCL 37.5 MG TABS 1/4 tab po titrating up to full dose 2 VENLAFAXINE HCL 36043572861 Active Chelsea Barba APRN Activ e DIFLUCAN 100 MG TAB 1 tablet by mouth daily FLU CONAZOLE 79184833346 No Longer Active Tesfaye Sherman MD Active BACTRIM DS 800-160 MG TAB 1 tab by mouth twice daily 2 TRIMETHOPRIM-SULFAMETHOXAZOLE 69036316109 No Longer Active Tesfaye Sherman MD Active BACTRIM DS 800-160 MG TAB 1 tab by mouth twice daily 2 TRIMETHOPRIM-SULFAMETHOXAZOLE 80185129213 No Longer Active Tesfaye Sherman MD Active DIFLUCAN 150 MG TAB 1 tablet by mouth daily FLU CONAZOLE 12131854282 No Longer Active Tesfaye Sherman MD Active BACTRIM DS 800-160 MG TAB 1 tab by mouth twice daily 2 TRIMETHOPRIM-SULFAMETHOXAZOLE 72924400558 No Longer Active Tesfaye Sherman MD Active ROPINIROLE HCL 0.25 MG ORAL TABS 1 TAB PO Q HS ROPINIROLE HCL 59958347327 Active Tesfaye Sherman MD Active CEFTIN 250 MG TAB 1 tablet twice daily x 7 days 11/19 CEFUROXIME AXETIL 97990022970 No Longer Active Tesfaye Sherman MD Acti ve DIFLUCAN 100 MG TABS 1 tablet by mouth every other day for 2 dos es FLUCONAZOLE 76944281658 No Longer Active Tefsaye Sherman MD Active DIFLUCAN 100 MG TAB 1 tablet by mouth daily X 3 DAYS 2 FLUCONAZOLE 76255943607 No Longer Active Rj Moss DO Active MIRTAZAPINE 15 MG ORAL TABS 1/2 tab by mouth at bedtime. MIRTAZAPINE 93974572166 No Longer Active Tesfaye Sherman MD Acti ve BACTRIM DS 800-160 MG TAB 1 tab by mouth twice daily 2 TRIMETHOPRIM-SULFAMETHOXAZOLE 58008811831 No Longer Active Tesfaye Sherman MD Active PRAMIPEXOLE DIHYDROCHLORIDE 0.125 MG ORAL TABS take 1 tablet po qhs for restless leg syndrome. 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 BACTRIM DS 800-160 MG TAB 1 tab by mouth twice daily 2 TRIMETHOPRIM-SULFAMETHOXAZOLE 73306409793 No Longer Active Tesfaye Sherman MD Active BACTRIM DS 800-160 MG TAB 1 tab by mouth twice daily X 10 DAYS 2 TRIMETHOPRIM-SULFAMETHOXAZOLE 84244767065 No Longer Active Umer Sherman MD Active AMOXICILLIN 500 MG CAPS 1 cap by mouth three times a day AMOXICILLIN 52587845405 No Longer Active Adriana Arredondo Active MECLIZINE HCL 25 MG TAB one tab po qday prn dizziness MECLIZINE HCL 28564954449 Active Tesfaye Sherman MD Active B-12 1000 MCG ORAL LOZG 1 tab po daily CYANOCOBAL STANTON 08403418803 Active Tesfaye Sherman MD Active VITAMIN D3 2000 UNIT TABS 1 daily, for vitamin D deficiency 2014 CHOLECALCIFEROL 74560863643 No Longer Active Tesfaye Sherman MD Active TIZANIDINE HCL 2 MG TABS take 1-2 tablet by mouth at bedtime at 9pm PRN TIZANIDINE HCL 51952060353 Active Tesfaye Owusu Active ZITHROMAX 250 MG TAB 2 po today, then 1 po q days 2-5 AZITHROMYCIN 39721024256 No Longer Active Tesfaye Sherman MD Acti ve BACTRIM DS 800-160 MG TAB 1 tab by mouth twice daily 2 TRIMETHOPRIM-SULFAMETHOXAZOLE 94390783620 No Longer Active Tesfaye Sherman MD Active PRELIEF 340 (65-50) MG (CA-P) ORAL TABS CALCIUM GLYCEROPHOSPHATE 70118874541 Active Tesfaye Sherman MD Active [facility] NIACIN FLUSH FREE 400-100 MG CAPS 1 daily NIACIN-INOSITOL 14837404633 Active Kayla Cooper MD Active DIFLUCAN 150 MG TABS 1 qd FLUCONAZOLE 66289 276971 No Longer Active Kayla Cooper MD Active FLUTICASONE PROPIONATE 50 MCG/ACT SUSP 1 spray each nostril twice daily FLUTICASONE PROPIONATE 91920321582 Active Tesfaye armenta MD Active LOVASTATIN 20 MG TABS Take 1 tablet by mouth daily LOVASTATIN 11068878776 No Longer Active Tesfaye Sherman MD Active MELOXICAM 7.5 MG TABS 1 tablet by mouth daily M ELOXICAM 26878138785 No Longer Active Tesfaye Sherman MD Active GABAPENTIN 300 MG CAPS Take two tablets by mouth every evening GABAPENTIN 94255965673 No Longer Active Edith Burch MD Active OXYCODONE-ACETAMINOPHEN 5-325 MG TABS Take one tablet by mouth every 6 hours as needed. Max 12 tabs/day as needed OXYCODONE-ACETAMINOP HEN 96576760941 Active Tesfaye Sherman MD Active CLONAZEPAM 0.5 MG TABS Take one tablet in the morning and 1.5 table t at 7pm CLONAZEPAM 77510399810 Active Kayla Cooper MD Active BACLOFEN 10 MG TABS Take one tablet by mouth three times a day BACLOFEN 20700223357 Active Kayla Cooper MD Active GABAPENTIN 300 MG CAPS Take two tablets by mouth every evening GABAPENTIN 300 MG CAPS 985133 GABAPENTIN Inactive MELOXICAM 7.5 MG TABS 1 tablet by mouth daily MELOXICAM 7.5 MG TABS 576098 MELOXICAM Inactive LOVASTATIN 20 MG TABS Take 1 tablet by mouth daily 201 02/12/20 LOVASTATIN 20 MG TABS 884364 LOVASTATIN Inactive DIFLUCAN 150 MG TABS 1 qd DIFLUCAN 150 MG T ABS 981822 FLUCONAZOLE Inactive VITAMIN D3 2000 UNIT TABS 1 daily, for vitamin D deficiency 2014 VITAMIN D3 2000 UNIT TABS CHOLECALCIFEROL Inacti ve AMOXICILLIN 500 MG CAPS 1 cap by mouth three times a day AMOXICILLIN 500 MG CAPS 639486 AMOXICILLIN Inactive BACTRIM DS 800-160 MG TAB 1 tab by mouth twice daily X 10 DAYS 2 BACTRIM DS 800-160 MG TAB 19830105 TRIMETHOPRIM-SULFAMETH OXAZOLE Inactive TRIMETHOPRIM 100 MG TABS 1/2 qd TRIMETHOPRI M 100 MG TABS 19830102 TRIMETHOPRIM Inactive CETIRIZINE HCL 5 MG TABS Take 1 tablet by mouth daily CETIRIZINE HCL 5 MG TABS 3942951 CETIRIZINE HCL Inactive PRAMIPEXOLE DIHYDROCHLORIDE 0.125 MG ORAL TABS take 1 tablet po qhs for restless leg syndrome. PRAMIPEXOLE DIHYDROC HLORIDE 0.125 MG ORAL TABS 268656 PRAMIPEXOLE DIHYDROCHLORIDE Inactive MIRTAZAPINE 15 MG ORAL TABS 1/2 tab by mouth at bedtime. MIRTAZAPINE 15 MG ORAL TABS 208655 MIRTAZAPINE Inactive DIFLUCAN 100 MG TAB 1 tablet by mouth daily X 3 DAYS 2 DIFLUCAN 100 MG TAB 579922 FLUCONAZOLE Inactive DIFLUCAN 100 MG TABS 1 tablet by mouth every other day for 2 dos es DIFLUCAN 100 MG TABS 361852 FLUCONAZOLE Inactive CEFTIN 250 MG TAB 1 tablet twice daily x 7 days 11/19 CEFTIN 250 MG TAB 397153 CEFUROXIME AXETIL Inactive CYMBALTA 30 MG CPEP 1 cap by mouth daily with 60mg 201 05/09/11 CYMBALTA 30 MG CPEP 585556 DULOXETINE HCL Inactive CYMBALTA 60 MG CPEP Take 1 tablet by mouth daily 05/13 CYMBALTA 60 MG CPEP 618342 DULOXETINE HCL Inactive BACTRIM DS 800-160 MG TAB 1 tab by mouth twice daily 2 BACTRIM DS 800-160 MG TAB 503403 TRIMETHOPRIM-SULFAMETHOXAZOLE Inac tive ZITHROMAX 250 MG TAB 2 po today, then 1 po q days 2-5 ZITHROMAX 250 MG TAB 4984601 AZITHROMYCIN Inactive BACTRIM DS 800-160 MG TAB [...] by mouth daily DIFLUCAN 100 MG TAB 519839 FLUCONAZOLE Inactive Advance Directives Directive Description Start Date PERMISSION TO SHARE DISCUSSED WITH PATIENT -- NO DECISION MADE Vital Signs Date Name Value Unit Range Description blood pressure, diastolic - 8462-4 85 mm[Hg] BP lyon blood pressure, systolic - 8480-6 153 mm[Hg] BP sys pulse rate E&M - 8867-4 67 /min H eart rate temperature E&M 99.2 [degF] Body temp erature weight E&M - 3141-9 125 [lb_av] Weigh t Measured blood pressure, diastolic - 8462-4 91 mm[Hg] BP lyon blood pressure, systolic - 8480-6 147 mm[Hg] BP sys height E&M - 8302-2 62 [in_us] Bdy h eight pulse rate E&M - 8867-4 82 /min H eart rate temperature E&M 98.5 [degF] Body temp erature weight E&M - 3141-9 126 [lb_av] Weigh t Measured blood pressure, diastolic - 8462-4 82 mm[Hg] [...] - 3141-9 130.5 [lb_av] Weigh t Measured Diagnostic Results Date [...] ... - Chemistry sodium, serum 144 mmol/L 285-827 8391/06/14 carbon dioxide, venous blood 29.4 mmol/L 21.0-32 .0 potassium, serum 4.4 mmol/L 3.5-5.2 chloride, serum 108 mmol/L 98-107 blood glucose 100 mg/dL 65-110 urea nitrogen, blood 9 mg/dL 7-18 creatinine, serum 0.67 mg/dL 0.55-1.30 alanine aminotransferase (SGPT), serum 24 U/L 12-78 aspartate aminotransferase (SGOT), serum 15 U/L 15-37 calcium, serum 9.3 mg/dL 8.5-10.1 bilirubin, serum, total 0.50 mg/dL 0.00-1.00 cholesterol, serum 268 mg/dL 566-207 9897/06/14 triglyceride, serum, fasting 126 mg/dL 30-200 HDL [...] urine, semiquantitative 6.0 5.0-8.5 Office Visit: 3 MONTH FU - Basic LDL target level 160 mg/dL Office Visit: 3 MONTH FU - Chemistry HDL cholesterol, serum, target level 40 mg/dL triglyceride, target level 150 mg/dL cholesterol, target level 200 mg/dL Encounters Code Encounter Date Provider Facility CPT-04972 Level 4 Est. Patient 13:24:25 CDT Stephanie MERCADO [facility] CPT-88977 Level 4 Est. Patient 09:14:56 CDT Tesfaye pearson MD [facility] CPT-17934 Level 4 Est. Patient 18:40:25 ANIMAL ANATOMIST Tesfaye pearson MD [facility] CPT-29976 Level 4 Est. Patient 18:13:07 ANIMAL ANATOMIST Tesfaye pearson MD [facility]-63773 Level 3 Est. Patient 10:46:32 CDT Rj cotot DO [facility]-10519 Level 4 Est. Patient 20:19:25 CDT Tesfaye pearson MD [facility]-15642 Level 3 Est. Patient 09:07:31 CDT Tesfaye pearson MD [facility]-34919 Level 4 Est. Patient 13:12:56 CDT Tesfaye pearson MD [facility]-58524 Level 4 Est. Patient 21:24:55 ANIMAL ANATOMIST Tesfaye pearson MD [facility]-94231 Level 3 Est. Patient 13:45:04 ANIMAL ANATOMIST Tesfaye pearson MD [facility] CPT-98764 Level 4 Est. Patient 13:50:45 CDT Tesfaye pearson MD [facility] CPT-64979 Level 3 Est. Patient 10:16:10 CDT Tesfaye pearson MD [facility] CPT-48484 Level 3 Est. Patient 16:36:07 ANIMAL ANATOMIST Kayla jameson MD [facility]-51168 Level 4 Est. Patient 16:00:14 ANIMAL ANATOMIST Tesfaye pearson MD [facility]-04122 Level 4 Est. Patient 11:02:24 ANIMAL ANATOMIST Tesfaye pearson MD [facility]-36198 Level 3 Est. Patient 20:21:43 ANIMAL ANATOMIST Kayla jameson MD [facility]-63435 Level 3 Est. Patient 13:27:28 ANIMAL ANATOMIST Kayla jameson MD [facility]-05392 Level 4 Est. Patient 15:57:17 ANIMAL ANATOMIST Tesfaye pearson MD [facility] CPT-01368 Level 3 New Patient 13:25:47 CDT Tesfaye kidd MD [facility] CPT-73000 Level 3 New Patient 17:22:21 CDT Kayla angel MD [facility] Procedures Code Procedure Name Date Entry Date Standard Desc ription CPT-80306 Prv Med New Pt 40-64 yrs 18:19:25 CDT 2016 CPT-92454 Foot, right, comp min 3V - XRAY USE ONLY 10:38:34 CDT CPT-G0439 Subsequent Annual Wellness Exam 13:55:04 CDT CPT-G0438 Initial Annual Wellness Exam 11:23:17 CD T CPT-J2930 Solu Medrol 125 mg (Methyl Prednisolone Sodium Succinate) 17:29:12 ANIMAL ANATOMIST CPT-16291 Abx/Therapy Injection 17:29:11 ANIMAL ANATOMIST CPT-J2930 Solu Medrol 125 mg (Methyl Prednisolone Sodium Succinate) 12:34:38 ANIMAL ANATOMIST CPT-J3420 Vitamin B12 1000mcg (Cyanocobalamin) 09:12:55 CDT CPT-J3420 Vitamin B12 1000mcg (Cyanocobalamin) 16:28:06 ANIMAL ANATOMIST CPT-83827 Venipuncture Draw Fee 08:39:53 CDT CPT-J3420 Vitamin B12 1000mcg (Cyanocobalamin) 08:46:22 CDT CPT-87717 Abx/Therapy Injection 08:46:22 CDT CPT-J3420 Vitamin B12 1000mcg (Cyanocobalamin) 08:41:26 CDT CPT-87767 Abx/Therapy Injection 08:41:26 CDT CPT-J3420 Vitamin B12 1000mcg (Cyanocobalamin) 08:57:15 CDT CPT-44364 Abx/Therapy Injection 08:57:15 CDT CPT-J3420 Vitamin B12 1000mcg (Cyanocobalamin) 10:59:03 CDT CPT-36476 Abx/Therapy Injection 10:59:03 CDT CPT-J3420 Vitamin B12 1000mcg (Cyanocobalamin) 15:05:39 CDT CPT-69581 Abx/Therapy Injection 15:05:39 CDT CPT-J3420 Vitamin B12 1000mcg (Cyanocobalamin) 13:50:45 CDT CPT-J3420 Vitamin B12 1000mcg (Cyanocobalamin) 08:48:55 CDT CPT-92265 Abx/Therapy Injection 08:48:55 CDT CPT-J3420 Vitamin B12 1000mcg (Cyanocobalamin) 09:14:54 CDT CPT-89166 Abx/Therapy Injection 09:14:54 CDT CPT-J3420 Vitamin B12 1000mcg (Cyanocobalamin) 09:06:06 CDT CPT-85130 Abx/Therapy Injection 09:06:06 CDT CPT-J3420 Vitamin B12 1000mcg (Cyanocobalamin) 09:49:14 CDT CPT-18730 Abx/Therapy Injection 09:49:14 CDT CPT-J3420 Vitamin B12 1000mcg (Cyanocobalamin) 09:10:30 ANIMAL ANATOMIST CPT-78250 Abx/Therapy Injection 09:10:30 ANIMAL ANATOMIST CPT-J3420 Vitamin B12 1000mcg (Cyanocobalamin) 09:11:07 ANIMAL ANATOMIST CPT-24625 Abx/Therapy Injection 09:11:07 ANIMAL ANATOMIST CPT-J3420 Vitamin B12 1000mcg (Cyanocobalamin) 09:57:03 ANIMAL ANATOMIST CPT-14712 Abx/Therapy Injection 09:57:03 ANIMAL ANATOMIST CPT-J3420 Vitamin B12 1000mcg (Cyanocobalamin) 09:23:21 ANIMAL ANATOMIST CPT-57344 Abx/Therapy Injection 09:23:21 ANIMAL ANATOMIST CPT-26981 Urine Dip (Floor Use Only) 20:21:44 ANIMAL ANATOMIST 201 02/12/11 CPT-65280 UA Dip Auto (Floor Use Only) 10:04:39 ANIMAL ANATOMIST 2 CPT-63434 Urine Dip (Floor Use Only) 13:27:28 ANIMAL ANATOMIST 201 02/12/01 CPT-60078 Bladder Scan 13:27:28 ANIMAL ANATOMIST CPT-80817 Abd single AP View 14:30:51 ANIMAL ANATOMIST CPT-OV Office Visit 10:15:43 CDT CPT-73665 Urine Dip (Floor Use Only) 17:22:21 CDT 201 02/09/02 CPT-71188 Bladder Scan 17:22:21 CDT
--- OUTSIDE RECORDS SUMMARY | 2020-05-05 11:45 | XMS REPORT | Clinical Summary ---
Author Author Talon, Jeri Wood Organization [employer] Address Unknown Phone Unavailable Allergies, Adverse Reactions, Alerts Allergy Name Reaction Description Start Date Severity Status Pr ovider MIRAPEX caused dizziness and weakness Moderate Active Tesfaye Sherman MD NITROFURANTION Critical Active Tesfaye kidd MD XANAX Critical Active Kayla Shaw on SAVELLFer Critical Active Kayla Shaw on NUVIGIIsrael Critical Active Kayla Shaw on NAPROXLINNEA MEDLEY Critical Active Kayla Edward son BENADRYL Critical Active Kayla Shaw on ATIVAN Critical Active Kayla Shaw on Conditions or Problems Problem Name Problem Code Onset Date Status Entry Date Provider Comment Standard Description Annotate FH Depression V17.0 Active Kayla Cooper MD Family history of psychiatric condition FH Diabetes V18.0 Active Kayla Cooper MD Family [...] Generic Name ND Status Provider Patient Instruction DIFLUCAN 100 MG TAB 1 tablet by mouth daily X 3 DAYS FLUCONAZOLE 67952923580 Active Adriana Arredondo Active BACTRIM DS 800-160 MG TAB 1 tab by mouth twice daily 2 TRIMETHOPRIM-SULFAMETHOXAZOLE 47587958756 No Longer Active Tesfaye Sherman MD Active PRAMIPEXOLE DIHYDROCHLORIDE 0.125 MG ORAL TABS take 1 tablet po qhs for restless leg syndrome. PRAMIPEXOLE DIHYDROCHLORIDE 80410123732 No Longer Active Tesfaye Sherman MD Active MAGNESIUM 400 MG ORAL TABS 1 tab po daily [facility] 22297213782 Active Chelsea Barba APRN Active SUDAFED 24 HOUR 240 MG ORAL [id number] 1 tab po daily PSEUDOEPHEDRINE HCL 30441887494 Active Chelsea Barba APRN A ctive CETIRIZINE HCL 5 MG TABS Take 1 tablet by mouth daily CETIRIZINE HCL 10931335557 No Longer Active Chelsea Barba APRN Acti ve TRIMETHOPRIM 100 MG TABS 1/2 qd TRIMETHOPRIM 46805666835 No Longer Active Chelsea Barba APRN Active MIRTAZAPINE 15 MG ORAL TABS 1/2 tab by mouth at bedtime. MIRTAZAPINE 83725399189 Active Tesfaye Sherman MD Active BACTRIM DS 800-160 MG TAB 1 tab by mouth twice daily 2 TRIMETHOPRIM-SULFAMETHOXAZOLE 61164924415 No Longer Active Tesfaye Sherman MD Active BACTRIM DS 800-160 MG TAB 1 tab by mouth twice daily X 10 DAYS 2 TRIMETHOPRIM-SULFAMETHOXAZOLE 03455601202 No Longer Active D patricia Sherman MD Active AMOXICILLIN 500 MG CAPS 1 cap by mouth three times a day AMOXICILLIN 50471950268 No Longer Active Adriana Arredondo Active MECLIZINE HCL 25 MG TAB one tab po qday prn dizziness MECLIZINE HCL 68813538485 Active Tesfaye Sherman MD Active B-12 1000 MCG ORAL LOZG 1 tab po daily CYANOCOBAL STANTON 70147036845 Active Tesfaye Sherman MD Active VITAMIN D3 2000 UNIT TABS 1 daily, for vitamin D deficiency 2014 CHOLECALCIFEROL 48166219623 No Longer Active Tesfaye Sherman MD Active TIZANIDINE HCL 2 MG TABS take 1-2 tablet by mouth ev [place] day at bedtime at 9pm PRN TIZANIDINE HCL 72899838223 Active Tesfaye Owusu Active ZITHROMAX 250 MG TAB 2 po today, then 1 po q days 2-5 AZITHROMYCIN 38716207343 No Longer Active Tesfaye Sherman MD Acti ve BACTRIM DS 800-160 MG TAB 1 tab by mouth twice daily 2 TRIMETHOPRIM-SULFAMETHOXAZOLE 56716882089 No Longer Active Tesfaye Sherman MD Active PRELIEF 340 (65-50) MG (CA-P) ORAL TABS CALCIUM GLYCEROPHOSPHATE 44223562838 Active Tesfaye Sherman MD Active [facility] NIACIN FLUSH FREE 400-100 MG CAPS 1 daily NIACIN-INOSITOL 63033943231 Active Kayla Cooper MD Active DIFLUCAN 150 MG TABS 1 qd FLUCONAZOLE 12453 238634 No Longer Active Kayla Cooper MD Active FLUTICASONE PROPIONATE 50 MCG/ACT SUSP 1 spray each nostril twice daily FLUTICASONE PROPIONATE 03471020101 Active Tesfaye armenta MD Active LOVASTATIN 20 MG TABS Take 1 tablet by mouth daily LOVASTATIN 06027242301 No Longer Active Tesfaye Sherman MD Active MELOXICAM 7.5 MG TABS 1 tablet by mouth daily M ELOXICAM 50666567555 No Longer Active Tesfaye Sherman MD Active GABAPENTIN 300 MG CAPS Take two tablets by mouth every evening GABAPENTIN 33425696528 No Longer Active Edith Burch MD Active OXYCODONE-ACETAMINOPHEN 5-325 MG TABS Take one tablet by mouth every 6 hours as needed. Max 12 tabs/day as needed OXYCODONE-ACETAMINOP HEN 88342102815 Active Tesfaye Sherman MD Active CYMBALTA 60 MG CPEP Take 1 tablet by mouth daily D ULOXETINE HCL 46496799833 Active Kayla Cooper MD Active CLONAZEPAM 0.5 MG TABS Take one tablet in the morning and 1.5 table t at 7pm CLONAZEPAM 22169850073 Active Kayla Cooper MD Active BACLOFEN 10 MG TABS Take one tablet by mouth three times a day BACLOFEN 73276688060 Active Kayla Cooper MD Active GABAPENTIN 300 MG CAPS Take two tablets by mouth every evening GABAPENTIN 300 MG CAPS 894296 GABAPENTIN Inactive MELOXICAM 7.5 MG TABS 1 tablet by mouth daily MELOXICAM 7.5 MG TABS 966010 MELOXICAM Inactive LOVASTATIN 20 MG TABS Take 1 tablet by mouth daily 201 02/12/20 LOVASTATIN 20 MG TABS 083641 LOVASTATIN Inactive DIFLUCAN 150 MG TABS 1 qd DIFLUCAN 150 MG T ABS 648505 FLUCONAZOLE Inactive VITAMIN D3 2000 UNIT TABS 1 daily, for vitamin D deficiency 2014 VITAMIN D3 2000 UNIT TABS CHOLECALCIFEROL Inacti ve AMOXICILLIN 500 MG CAPS 1 cap by mouth three times a day AMOXICILLIN 500 MG CAPS 136134 AMOXICILLIN Inactive BACTRIM DS 800-160 MG TAB 1 tab by mouth twice daily X 10 DAYS 2 BACTRIM DS 800-160 MG TAB 517480 TRIMETHOPRIM-SULFAMETH OXAZOLE Inactive TRIMETHOPRIM 100 MG TABS 1/2 qd TRIMETHOPRI M 100 MG TABS 887175 TRIMETHOPRIM Inactive CETIRIZINE HCL 5 MG TABS Take 1 tablet by mouth daily CETIRIZINE HCL 5 MG TABS 4837623 CETIRIZINE HCL Inactive PRAMIPEXOLE DIHYDROCHLORIDE 0.125 MG ORAL TABS take 1 tablet po qhs for restless leg syndrome. PRAMIPEXOLE DIHYDROC HLORIDE 0.125 MG ORAL TABS 140809 PRAMIPEXOLE DIHYDROCHLORIDE Inactive BACTRIM DS 800-160 MG TAB 1 tab by mouth twice daily 2 BACTRIM DS 800-160 MG TAB 017667 TRIMETHOPRIM-SULFAMETHOXAZOLE Inac tive ZITHROMAX 250 MG TAB 2 po today, then 1 po q days 2-5 ZITHROMAX 250 MG TAB 9406598 AZITHROMYCIN Inactive BACTRIM DS 800-160 MG TAB 1 tab by mouth twice daily 2 BACTRIM DS 800-160 MG TAB 422351 TRIMETHOPRIM-SULFAMETHOXAZOLE Inac tive BACTRIM DS 800-160 MG TAB 1 tab by mouth twice daily 2 BACTRIM DS 800-160 MG TAB 445647 TRIMETHOPRIM-SULFAMETHOXAZOLE Inac tive Advance Directives Directive Description Start Date PERMISSION TO SHARE DISCUSSED WITH PATIENT -- NO DECISION MADE Vital Signs Date Name Value Unit Range Description blood pressure, diastolic - 8462-4 78 mm[Hg] BP lyon blood pressure, systolic - 8480-6 137 mm[Hg] BP sys pulse rate E&M - 8867-4 96 /min H eart rate temperature E&M 98.5 [degF] Body temp erature weight E&M - 3141-9 122.5 [lb_av] Weigh t Measured blood pressure, diastolic - 8462-4 79 mm[Hg] BP lyon blood pressure, systolic - 8480-6 155 mm[Hg] BP sys height E&M - 8302-2 62 [in_us] Bdy h eight pulse rate E&M - 8867-4 82 /min H eart rate temperature E&M 98.4 [degF] Body temp erature weight E&M - 3141-9 124 [lb_av] Weigh t Measured blood pressure, diastolic - 8462-4 81 mm[Hg] BP lyon blood pressure, systolic - 8480-6 132 mm[Hg] BP sys pulse rate E&M - 8867-4 99 /min H eart rate temperature E&M 99.5 [degF] Body temp erature weight E&M - 3141-9 123 [lb_av] Weigh t Measured blood pressure, diastolic - 8462-4 98 mm[Hg] BP lyon blood pressure, systolic - 8480-6 145 mm[Hg] BP sys pulse rate E&M - 8867-4 76 /min H eart rate temperature E&M 99.4 [degF] Body temp erature weight E&M - 3141-9 114.5 [lb_av] Weigh t Measured blood pressure, diastolic - 8462-4 77 mm[Hg] BP lyon blood pressure, systolic - 8480-6 133 mm[Hg] BP sys pulse rate E&M - 8867-4 85 /min H eart rate temperature E&M 96.5 [degF] Body temp erature weight E&M - 3141-9 113.5 [lb_av] Weigh t Measured Diagnostic Results Date Name Value Unit Range Description Lab Report: UADIP W/MICRO, AUTO - Chemis try RBC, urine, dipstick Negative Negative protein, total urine random Negative mg/dL Negative RBC, urine, dipstick 1+ Negative protein, total urine random Negative mg/dL Negative Lab Report: UADIP W/MICRO, AUTO - Urinal ysis glucose, urine, semiquantitative Negative Neg ative glucose, urine, semiquantitative Negative Neg ative ketones, urine, by test strip Negative Negati ve bilirubin, urine Negative Negative urobilinogen, urine, semiquantitative (dipstick) 0.2 Normal leukocyte esterase, urine, by dipstick Negative Negative nitrite, urine, semiquantitative Negative Neg ative appearance, urine Clear Clear specific gravity, urine 1.010 1.000-1.030 pH, urine, semiquantitative 8.0 5.0-8.5 pH, urine, semiquantitative 7.5 5.0-8.5 specific gravity, urine <=1.005 1.000-1.030 appearance, urine Clear Clear urine color Yellow Colorless;Lightyellow;St raw;Yellow urine color Yellow Colorless;Lightyellow;St raw;Yellow ketones, urine, by test strip Negative Negati ve bilirubin, urine Negative Negative urobilinogen, urine, semiquantitative (dipstick) 0.2 Normal leukocyte esterase, urine, by dipstick Negative Negative nitrite, urine, semiquantitative Negative Neg ative Office Visit: 3 month follow up - Chemis try cholesterol, target level 200 mg/dL LDL target level 160 mg/dL HDL cholesterol, serum, target level 40 mg/dL triglyceride, target level 150 mg/dL Office Visit: 3 MONTH RECHECK - Chemistr y cholesterol, target level 200 mg/dL LDL target level 160 mg/dL HDL cholesterol, serum, target level 40 mg/dL triglyceride, target level 150 mg/dL Encounters Code Encounter Date Provider Facility CPT-10229 Level 3 Est. Patient 09:07:31 CDT Tesfaye pearson MD [facility] CPT-26725 Level 4 Est. Patient 13:12:56 CDT Tesfaye pearson MD [facility] CPT-91857 Level 4 Est. Patient 21:24:55 CAFETERIA COOK Tesfaye pearson MD [facility] CPT-59744 Level 3 Est. Patient 13:45:04 CAFETERIA COOK Tesfaye pearson MD [facility] CPT-38798 Level 4 Est. Patient 13:50:45 CDT Tesfaye pearson MD [facility] CPT-32488 Level 3 Est. Patient 10:16:10 CDT Tesfaye pearson MD [facility] CPT-40566 Level 3 Est. Patient 16:36:07 CAFETERIA COOK Kayla jameson MD [facility] CPT-58226 Level 4 Est. Patient 16:00:14 CAFETERIA COOK Tesfaye pearson MD [facility] CPT-48039 Level 4 Est. Patient 11:02:24 CAFETERIA COOK Tesfaye pearson MD [facility] CPT-01368 Level 3 Est. Patient 20:21:43 CAFETERIA COOK Kayla jameson MD [facility] CPT-71429 Level 3 Est. Patient 13:27:28 CAFETERIA COOK Kayla jameson MD [facility] CPT-61543 Level 4 Est. Patient 15:57:17 CAFETERIA COOK Tesfaye pearson MD [facility] CPT-58547 Level 3 New Patient 13:25:47 CDT Tesfaye kidd MD [facility] CPT-86837 Level 3 New Patient 17:22:21 CDT Kayla angel MD [facility] Procedures Code Procedure Name Date Entry Date Standard Desc ription CPT-G0438 Initial Annual Wellness Exam 11:23:17 CD T CPT-J2930 Solu Medrol 125 mg (Methyl Prednisolone Sodium Succinate) 17:29:12 CAFETERIA COOK CPT-27667 Abx/Therapy Injection 17:29:11 CAFETERIA COOK CPT-J2930 Solu Medrol 125 mg (Methyl Prednisolone Sodium Succinate) 12:34:38 CAFETERIA COOK CPT-J3420 Vitamin B12 1000mcg (Cyanocobalamin) 09:12:55 CDT CPT-J3420 Vitamin B12 1000mcg (Cyanocobalamin) 16:28:06 CAFETERIA COOK CPT-64678 Venipuncture Draw Fee 08:39:53 CDT CPT-J3420 Vitamin B12 1000mcg (Cyanocobalamin) 08:46:22 CDT CPT-63370 Abx/Therapy Injection 08:46:22 CDT CPT-J3420 Vitamin B12 1000mcg (Cyanocobalamin) 08:41:26 CDT CPT-08107 Abx/Therapy Injection 08:41:26 CDT CPT-J3420 Vitamin B12 1000mcg (Cyanocobalamin) 08:57:15 CDT CPT-53218 Abx/Therapy Injection 08:57:15 CDT CPT-J3420 Vitamin B12 1000mcg (Cyanocobalamin) 10:59:03 CDT CPT-65689 Abx/Therapy Injection 10:59:03 CDT CPT-J3420 Vitamin B12 1000mcg (Cyanocobalamin) 15:05:39 CDT CPT-57148 Abx/Therapy Injection 15:05:39 CDT CPT-J3420 Vitamin B12 1000mcg (Cyanocobalamin) 13:50:45 CDT CPT-J3420 Vitamin B12 1000mcg (Cyanocobalamin) 08:48:55 CDT CPT-97584 Abx/Therapy Injection 08:48:55 CDT CPT-J3420 Vitamin B12 1000mcg (Cyanocobalamin) 09:14:54 CDT CPT-60811 Abx/Therapy Injection 09:14:54 CDT CPT-J3420 Vitamin B12 1000mcg (Cyanocobalamin) 09:06:06 CDT CPT-88069 Abx/Therapy Injection 09:06:06 CDT CPT-J3420 Vitamin B12 1000mcg (Cyanocobalamin) 09:49:14 CDT CPT-67533 Abx/Therapy Injection 09:49:14 CDT CPT-J3420 Vitamin B12 1000mcg (Cyanocobalamin) 09:10:30 CAFETERIA COOK CPT-88391 Abx/Therapy Injection 09:10:30 CAFETERIA COOK CPT-J3420 Vitamin B12 1000mcg (Cyanocobalamin) 09:11:07 CAFETERIA COOK CPT-74126 Abx/Therapy Injection 09:11:07 CAFETERIA COOK CPT-J3420 Vitamin B12 1000mcg (Cyanocobalamin) 09:57:03 CAFETERIA COOK CPT-69566 Abx/Therapy Injection 09:57:03 CAFETERIA COOK CPT-J3420 Vitamin B12 1000mcg (Cyanocobalamin) 09:23:21 CAFETERIA COOK CPT-04555 Abx/Therapy Injection 09:23:21 CAFETERIA COOK CPT-40686 Urine Dip (Floor Use Only) 20:21:44 CAFETERIA COOK 201 02/12/11 CPT-90174 UA Dip Auto (Floor Use Only) 10:04:39 CAFETERIA COOK 2 CPT-72051 Urine Dip (Floor Use Only) 13:27:28 CAFETERIA COOK 201 02/12/01 CPT-67096 Bladder Scan 13:27:28 CAFETERIA COOK CPT-18353 Abd single AP View 14:30:51 CAFETERIA COOK CPT-OV Office Visit 10:15:43 CDT CPT-99109 Urine Dip (Floor Use Only) 17:22:21 CDT 201 02/09/02 CPT-36957 Bladder Scan 17:22:21 CDT
--- OUTSIDE RECORDS SUMMARY | 2020-05-05 11:46 | XMS REPORT | Clinical Summary ---
Author Author Talon, Jeri Wood Organization [employer] Address Unknown Phone Unavailable Allergies, Adverse Reactions, [...] by mouth daily X 3 DAYS FLUCONAZOLE 89125389601 Active Adriana Arredondo Active BACTRIM DS 800-160 MG TAB 1 tab by mouth twice daily 2 TRIMETHOPRIM-SULFAMETHOXAZOLE 17407483012 No Longer Active Tesfaye Sherman MD Active PRAMIPEXOLE DIHYDROCHLORIDE 0.125 MG ORAL TABS take 1 tablet po qhs for restless leg syndrome. PRAMIPEXOLE DIHYDROCHLORIDE 15059602498 No Longer Active Tesfaye Sherman MD Active MAGNESIUM 400 MG ORAL TABS 1 tab po daily [facility] 53175944946 Active Chelsea Barba APRN Active SUDAFED 24 HOUR 240 MG ORAL [id number] 1 tab po daily PSEUDOEPHEDRINE HCL 00357088101 Active Chelsea Barba APRN A ctive CETIRIZINE HCL 5 MG TABS Take 1 tablet by mouth daily CETIRIZINE HCL 88605929252 No Longer Active Chelsea Barba APRN Acti ve TRIMETHOPRIM 100 MG TABS 1/2 qd TRIMETHOPRIM 06288690375 No Longer Active Chelsea Barba APRN Active MIRTAZAPINE 15 MG ORAL TABS 1/2 tab by mouth at bedtime. MIRTAZAPINE 81987693082 Active Tesfaye Sherman MD Active BACTRIM DS 800-160 MG TAB 1 tab by mouth twice daily 2 TRIMETHOPRIM-SULFAMETHOXAZOLE 71444190647 No Longer Active Tesfaye Sherman MD Active BACTRIM DS 800-160 MG TAB 1 tab by mouth twice daily X 10 DAYS 2 TRIMETHOPRIM-SULFAMETHOXAZOLE 64892479132 No Longer Active D patricia Sherman MD Active AMOXICILLIN 500 MG CAPS 1 cap by mouth three times a day AMOXICILLIN 96894388184 No Longer Active Adriana Arredondo Active MECLIZINE HCL 25 MG TAB one tab po qday prn dizziness MECLIZINE HCL 01586015039 Active Tesfaye Sherman MD Active B-12 1000 MCG ORAL LOZG 1 tab po daily CYANOCOBAL STANTON 13183665073 Active Tesfaye Sherman MD Active VITAMIN D3 2000 UNIT TABS 1 daily, for vitamin D deficiency 2014 CHOLECALCIFEROL 68542161782 No Longer Active Tesfaye Sherman MD Active TIZANIDINE HCL 2 MG TABS take 1-2 tablet by mouth ev [place] day at bedtime at 9pm PRN TIZANIDINE HCL 36935756347 Active Tesfaye Owusu Active ZITHROMAX 250 MG TAB 2 po today, then 1 po q days 2-5 AZITHROMYCIN 20330679227 No Longer Active Tesfaye Sherman MD Acti ve BACTRIM DS 800-160 MG TAB 1 tab by mouth twice daily 2 TRIMETHOPRIM-SULFAMETHOXAZOLE 08740073925 No Longer Active Tesfaye Sherman MD Active PRELIEF 340 (65-50) MG (CA-P) ORAL TABS CALCIUM GLYCEROPHOSPHATE 86333166870 Active Tesfaye Sherman MD Active [facility] NIACIN FLUSH FREE 400-100 MG CAPS 1 daily NIACIN-INOSITOL 59008311844 Active Kayla Cooper MD Active DIFLUCAN 150 MG TABS 1 qd FLUCONAZOLE 88209 133636 No Longer Active Kayla Cooper MD Active FLUTICASONE PROPIONATE 50 MCG/ACT SUSP 1 spray each nostril twice daily FLUTICASONE PROPIONATE 28712295773 Active Tesfaye armenta MD Active LOVASTATIN 20 MG TABS Take 1 tablet by mouth daily LOVASTATIN 43896581115 No Longer Active Tesfaye Sherman MD Active MELOXICAM 7.5 MG TABS 1 tablet by mouth daily M ELOXICAM 73542267154 No Longer Active Tesfaye Sherman MD Active GABAPENTIN 300 MG CAPS Take two tablets by mouth every evening GABAPENTIN 11421583336 No Longer Active Edith Burch MD Active OXYCODONE-ACETAMINOPHEN 5-325 MG TABS Take one tablet by mouth every 6 hours as needed. Max 12 tabs/day as needed OXYCODONE-ACETAMINOP HEN 76830713302 Active Tesfaye Sherman MD Active CYMBALTA 60 MG CPEP Take 1 tablet by mouth daily D ULOXETINE HCL 24803073761 Active Kayla Cooper MD Active CLONAZEPAM 0.5 MG TABS Take one tablet in the morning and 1.5 table t at 7pm CLONAZEPAM 72862996693 Active Kayla Cooper MD Active BACLOFEN 10 MG TABS Take one tablet by mouth three times a day BACLOFEN 43210185941 Active Kayla Cooper MD Active GABAPENTIN 300 MG CAPS Take two tablets by mouth every evening GABAPENTIN 300 MG CAPS 551871 GABAPENTIN Inactive MELOXICAM 7.5 MG TABS 1 tablet by mouth daily MELOXICAM 7.5 MG TABS 994430 MELOXICAM Inactive LOVASTATIN 20 MG TABS Take 1 tablet by mouth daily 201 02/12/20 LOVASTATIN 20 MG TABS 473134 LOVASTATIN Inactive DIFLUCAN 150 MG TABS 1 qd DIFLUCAN 150 MG T ABS 228966 FLUCONAZOLE Inactive VITAMIN D3 2000 UNIT TABS 1 daily, for vitamin D deficiency 2014 VITAMIN D3 2000 UNIT TABS CHOLECALCIFEROL Inacti ve AMOXICILLIN 500 MG CAPS 1 cap by mouth three times a day AMOXICILLIN 500 MG CAPS 558050 AMOXICILLIN Inactive BACTRIM DS 800-160 MG TAB 1 tab by mouth twice daily X 10 DAYS 2 BACTRIM DS 800-160 MG TAB 966769 TRIMETHOPRIM-SULFAMETH OXAZOLE Inactive TRIMETHOPRIM 100 MG TABS 1/2 qd TRIMETHOPRI M 100 MG TABS 001205 TRIMETHOPRIM Inactive CETIRIZINE HCL 5 MG TABS Take 1 tablet by mouth daily CETIRIZINE HCL 5 MG TABS 4658580 CETIRIZINE HCL Inactive PRAMIPEXOLE DIHYDROCHLORIDE 0.125 MG ORAL TABS take 1 tablet po qhs for restless leg syndrome. PRAMIPEXOLE DIHYDROC HLORIDE 0.125 MG ORAL TABS 043717 PRAMIPEXOLE DIHYDROCHLORIDE Inactive BACTRIM DS 800-160 MG TAB 1 tab by mouth twice daily 2 BACTRIM DS 800-160 MG TAB 606018 TRIMETHOPRIM-SULFAMETHOXAZOLE Inac tive ZITHROMAX 250 MG TAB 2 po today, then 1 po q days 2-5 ZITHROMAX 250 MG TAB 5828259 AZITHROMYCIN Inactive BACTRIM DS 800-160 MG TAB 1 tab by mouth twice daily 2 BACTRIM DS 800-160 MG TAB 526454 TRIMETHOPRIM-SULFAMETHOXAZOLE Inac tive BACTRIM DS 800-160 MG TAB 1 tab by mouth twice daily 2 BACTRIM DS 800-160 MG TAB 365323 TRIMETHOPRIM-SULFAMETHOXAZOLE Inac tive Advance Directives Directive Description [...] 1.010 1.000-1.030 pH, urine, semiquantitative 8.0 5.0-8.5 Office Visit: 3 month follow up - Chemis try cholesterol, target level 200 mg/dL LDL target level 160 mg/dL HDL cholesterol, serum, target level 40 mg/dL triglyceride, target level 150 mg/dL Office Visit: 3 MONTH RECHECK - Chemistr y triglyceride, target level 150 mg/dL HDL cholesterol, serum, target level 40 mg/dL LDL target level 160 mg/dL cholesterol, target level 200 mg/dL Encounters Code Encounter Date Provider Facility CPT-98290 Level 3 Est. Patient 09:07:31 CDT Tesfaye pearson MD [facility] CPT-66290 Level 4 Est. Patient 13:12:56 CDT Tesfaye pearson MD [facility] CPT-29496 Level 4 Est. Patient 21:24:55 GOLF CART REPAIRER Tesfaye pearson MD [facility] CPT-97766 Level 3 Est. Patient 13:45:04 GOLF CART REPAIRER Tesfaye pearson MD [facility] CPT-65825 Level 4 Est. Patient 13:50:45 CDT Tesfaye pearson MD [facility] CPT-24244 Level 3 Est. Patient 10:16:10 CDT Tesfaye pearson MD [facility] CPT-95733 Level 3 Est. Patient 16:36:07 GOLF CART REPAIRER Kayla jameson MD [facility] CPT-79444 Level 4 Est. Patient 16:00:14 GOLF CART REPAIRER Tesfaye pearson MD [facility] CPT-58780 Level 4 Est. Patient 11:02:24 GOLF CART REPAIRER Tesfaye pearson MD [facility] CPT-45705 Level 3 Est. Patient 20:21:43 GOLF CART REPAIRER Kayla jameson MD [facility] CPT-04108 Level 3 Est. Patient 13:27:28 GOLF CART REPAIRER Kayla jameson MD [facility] CPT-13157 Level 4 Est. Patient 15:57:17 GOLF CART REPAIRER Tesfaye pearson MD [facility] CPT-12709 Level 3 New Patient 13:25:47 CDT Tesfaye kidd MD [facility] CPT-33104 Level 3 New Patient 17:22:21 CDT Kayla angel MD [facility] Procedures Code Procedure Name Date Entry Date Standard Desc ription CPT-G0438 Initial Annual Wellness Exam 11:23:17 CD T CPT-J2930 Solu Medrol 125 mg (Methyl Prednisolone Sodium Succinate) 17:29:12 GOLF CART REPAIRER CPT-77978 Abx/Therapy Injection 17:29:11 GOLF CART REPAIRER CPT-J2930 Solu Medrol 125 mg (Methyl Prednisolone Sodium Succinate) 12:34:38 GOLF CART REPAIRER CPT-J3420 Vitamin B12 1000mcg (Cyanocobalamin) 09:12:55 CDT CPT-J3420 Vitamin B12 1000mcg (Cyanocobalamin) 16:28:06 GOLF CART REPAIRER CPT-38883 Venipuncture Draw Fee 08:39:53 CDT CPT-J3420 Vitamin B12 1000mcg (Cyanocobalamin) 08:46:22 CDT CPT-32544 Abx/Therapy Injection 08:46:22 CDT CPT-J3420 Vitamin B12 1000mcg (Cyanocobalamin) 08:41:26 CDT CPT-71901 Abx/Therapy Injection 08:41:26 CDT CPT-J3420 Vitamin B12 1000mcg (Cyanocobalamin) 08:57:15 CDT CPT-53204 Abx/Therapy Injection 08:57:15 CDT CPT-J3420 Vitamin B12 1000mcg (Cyanocobalamin) 10:59:03 CDT CPT-46628 Abx/Therapy Injection 10:59:03 CDT CPT-J3420 Vitamin B12 1000mcg (Cyanocobalamin) 15:05:39 CDT CPT-65397 Abx/Therapy Injection 15:05:39 CDT CPT-J3420 Vitamin B12 1000mcg (Cyanocobalamin) 13:50:45 CDT CPT-J3420 Vitamin B12 1000mcg (Cyanocobalamin) 08:48:55 CDT CPT-58489 Abx/Therapy Injection 08:48:55 CDT CPT-J3420 Vitamin B12 1000mcg (Cyanocobalamin) 09:14:54 CDT CPT-97145 Abx/Therapy Injection 09:14:54 CDT CPT-J3420 Vitamin B12 1000mcg (Cyanocobalamin) 09:06:06 CDT CPT-40455 Abx/Therapy Injection 09:06:06 CDT CPT-J3420 Vitamin B12 1000mcg (Cyanocobalamin) 09:49:14 CDT CPT-69428 Abx/Therapy Injection 09:49:14 CDT CPT-J3420 Vitamin B12 1000mcg (Cyanocobalamin) 09:10:30 GOLF CART REPAIRER CPT-57751 Abx/Therapy Injection 09:10:30 GOLF CART REPAIRER CPT-J3420 Vitamin B12 1000mcg (Cyanocobalamin) 09:11:07 GOLF CART REPAIRER CPT-39906 Abx/Therapy Injection 09:11:07 GOLF CART REPAIRER CPT-J3420 Vitamin B12 1000mcg (Cyanocobalamin) 09:57:03 GOLF CART REPAIRER CPT-29828 Abx/Therapy Injection 09:57:03 GOLF CART REPAIRER CPT-J3420 Vitamin B12 1000mcg (Cyanocobalamin) 09:23:21 GOLF CART REPAIRER CPT-91928 Abx/Therapy Injection 09:23:21 GOLF CART REPAIRER CPT-88897 Urine Dip (Floor Use Only) 20:21:44 GOLF CART REPAIRER 201 02/12/11 CPT-95374 UA Dip Auto (Floor Use Only) 10:04:39 GOLF CART REPAIRER 2 CPT-79794 Urine Dip (Floor Use Only) 13:27:28 GOLF CART REPAIRER 201 02/12/01 CPT-51835 Bladder Scan 13:27:28 GOLF CART REPAIRER CPT-64260 Abd single AP View 14:30:51 GOLF CART REPAIRER CPT-OV Office Visit 10:15:43 CDT CPT-07462 Urine Dip (Floor Use Only) 17:22:21 CDT 201 02/09/02 CPT-46454 Bladder Scan 17:22:21 CDT
--- OUTSIDE RECORDS SUMMARY | 2020-05-05 11:46 | XMS REPORT | Clinical Summary ---
Author Author Talon, Jeri Wood Organization [facility] Address Unknown Phone Unavailable Allergies, Adverse Reactions, [...] lying down x 1 hour. ALENDRONATE SODIUM [id number] Active Tesfaye Sherman MD Active REPHRESH PRO-B ORAL CAPS 1 tablet daily LACTOBACI LLUS 55013262744 Active Edith Burch MD Active CYMBALTA 60 MG CPEP Take 1 tablet by mouth daily 1 DULOXETINE HCL 59505588153 No Longer Active Edith Burch MD Active CYMBALTA 30 MG CPEP 1 cap by mouth daily with 60mg 201 05/09/11 DULOXETINE HCL 91913106728 No Longer Active Edith Burch MD Activ e FISH OIL 1000 MG CPDR 1 pill by mouth daily for cholesterol 04/18 OMEGA- 3 FATTY ACIDS 21746182896 Active Rosa Jaffe LPN Acti ve RED YEAST RICE 600 MG CAPS 1 pill by mouth daily RED YEAST RICE EXTRACT 58347087191 Active Rosa Jaffe LPN Activ e VENLAFAXINE HCL 37.5 MG TABS 1/4 tab po titrating up to full dose 2 VENLAFAXINE HCL 90499926051 Active Chelsea Barba APRN Activ e DIFLUCAN 100 MG TAB 1 tablet by mouth daily FLU CONAZOLE 28733224642 No Longer Active Tesfaye Sherman MD Active BACTRIM DS 800-160 MG TAB 1 tab by mouth twice daily 2 TRIMETHOPRIM-SULFAMETHOXAZOLE 39265310511 No Longer Active Tesfaye Sherman MD Active BACTRIM DS 800-160 MG TAB 1 tab by mouth twice daily 2 TRIMETHOPRIM-SULFAMETHOXAZOLE 29857925958 No Longer Active Tesfaye Sherman MD Active DIFLUCAN 150 MG TAB 1 tablet by mouth daily FLU CONAZOLE 87001268342 No Longer Active Tesfaye Sherman MD Active BACTRIM DS 800-160 MG TAB 1 tab by mouth twice daily 2 TRIMETHOPRIM-SULFAMETHOXAZOLE 35156317801 No Longer Active Tesfaye Sherman MD Active ROPINIROLE HCL 0.25 MG ORAL TABS 1 TAB PO Q HS ROPINIROLE HCL 83530370788 Active Tesfaye Sherman MD Active CEFTIN 250 MG TAB 1 tablet twice daily x 7 days 11/19 CEFUROXIME AXETIL 83494423026 No Longer Active Tesfaye Sherman MD Acti ve DIFLUCAN 100 MG TABS 1 tablet by mouth every other day for 2 dos es FLUCONAZOLE 69044482828 No Longer Active Tesfaye Sherman MD Active DIFLUCAN 100 MG TAB 1 tablet by mouth daily X 3 DAYS 2 FLUCONAZOLE 11214967346 No Longer Active Rj Moss DO Active MIRTAZAPINE 15 MG ORAL TABS 1/2 tab by mouth at bedtime. MIRTAZAPINE 59492826609 No Longer Active Tesfaye Sherman MD Acti ve BACTRIM DS 800-160 MG TAB 1 tab by mouth twice daily 2 TRIMETHOPRIM-SULFAMETHOXAZOLE 98114017424 No Longer Active Tesfaye Sherman MD Active PRAMIPEXOLE DIHYDROCHLORIDE 0.125 MG ORAL TABS take 1 tablet po qhs for restless leg syndrome. PRAMIPEXOLE DIHYDROCHLORIDE 93345332923 No Longer Active Tesfaye Sherman MD Active MAGNESIUM 400 MG ORAL TABS 1 tab po daily MAGNESI UM 31548746118 Active Chelsea Barba APRN Active SUDAFED 24 HOUR 240 MG ORAL [id number] 1 tab po daily PSEUDOEPHEDRINE HCL 80136630637 Active Chelsea Barba APRN A ctive CETIRIZINE HCL 5 MG TABS Take 1 tablet by mouth daily CETIRIZINE HCL 22798755967 No Longer Active Chelsea Barba APRN Acti ve TRIMETHOPRIM 100 MG TABS 1/2 qd TRIMETHOPRIM 44518763882 No Longer Active Chelsea Barba APRN Active BACTRIM DS 800-160 MG TAB 1 tab by mouth twice daily 2 TRIMETHOPRIM-SULFAMETHOXAZOLE 93805764820 No Longer Active Tesfaye Sherman MD Active BACTRIM DS 800-160 MG TAB 1 tab by mouth twice daily X 10 DAYS 2 TRIMETHOPRIM-SULFAMETHOXAZOLE 48987861312 No Longer Active Umer Sherman MD Active AMOXICILLIN 500 MG CAPS 1 cap by mouth three times a day AMOXICILLIN 85342034022 No Longer Active Adriana Arredondo Active MECLIZINE HCL 25 MG TAB one tab po qday prn dizziness MECLIZINE HCL 76301556190 Active Tesfaye Sherman MD Active B-12 1000 MCG ORAL LOZG 1 tab po daily CYANOCOBAL STANTON 44918797478 Active Tesfaye Sherman MD Active VITAMIN D3 2000 UNIT TABS 1 daily, for vitamin D deficiency 2014 CHOLECALCIFEROL 93730323028 No Longer Active Tesfaye Sherman MD Active TIZANIDINE HCL 2 MG TABS take 1-2 tablet by mouth at bedtime at 9pm PRN TIZANIDINE HCL 06876492780 Active Tesfaye Owusu Active ZITHROMAX 250 MG TAB 2 po today, then 1 po q days 2-5 AZITHROMYCIN 09888435954 No Longer Active Tesfaye Sherman MD Acti ve BACTRIM DS 800-160 MG TAB 1 tab by mouth twice daily 2 TRIMETHOPRIM-SULFAMETHOXAZOLE 49607950705 No Longer Active Tesfaye Sherman MD Active PRELIEF 340 (65-50) MG (CA-P) ORAL TABS CALCIUM GLYCEROPHOSPHATE 72597959314 Active Tesfaye Sherman MD Active [facility] NIACIN FLUSH FREE 400-100 MG CAPS 1 daily NIACIN-INOSITOL 75413967901 Active Kayla Cooper MD Active DIFLUCAN 150 MG TABS 1 qd FLUCONAZOLE 84116 221571 No Longer Active Kayla Cooper MD Active FLUTICASONE PROPIONATE 50 MCG/ACT SUSP 1 spray each nostril twice daily FLUTICASONE PROPIONATE 35351633439 Active Tesfaye armenta MD Active LOVASTATIN 20 MG TABS Take 1 tablet by mouth daily LOVASTATIN 47447894143 No Longer Active Tesfaye Sherman MD Active MELOXICAM 7.5 MG TABS 1 tablet by mouth daily M ELOXICAM 37450825775 No Longer Active Tesfaye Sherman MD Active GABAPENTIN 300 MG CAPS Take two tablets by mouth every evening GABAPENTIN 37274877850 No Longer Active Edith Burch MD Active OXYCODONE-ACETAMINOPHEN 5-325 MG TABS Take one tablet by mouth every 6 hours as needed. Max 12 tabs/day as needed OXYCODONE-ACETAMINOP HEN 77426991851 Active Tesfaye Sherman MD Active CLONAZEPAM 0.5 MG TABS Take one tablet in the morning and 1.5 table t at 7pm CLONAZEPAM 12715898934 Active Kayla Cooper MD Active BACLOFEN 10 MG TABS Take one tablet by mouth three times a day BACLOFEN 20561201715 Active Kayla Cooper MD Active GABAPENTIN 300 MG CAPS Take two tablets by mouth every evening GABAPENTIN 300 MG CAPS 800090 GABAPENTIN Inactive MELOXICAM 7.5 MG TABS 1 tablet by mouth daily MELOXICAM 7.5 MG TABS 319716 MELOXICAM Inactive LOVASTATIN 20 MG TABS Take 1 tablet by mouth daily 201 02/12/20 LOVASTATIN 20 MG TABS 547151 LOVASTATIN Inactive DIFLUCAN 150 MG TABS 1 qd DIFLUCAN 150 MG T ABS 108389 FLUCONAZOLE Inactive VITAMIN D3 2000 UNIT TABS 1 daily, for vitamin D deficiency 2014 VITAMIN D3 2000 UNIT TABS CHOLECALCIFEROL Inacti ve AMOXICILLIN 500 MG CAPS 1 cap by mouth three times a day AMOXICILLIN 500 MG CAPS 783302 AMOXICILLIN Inactive BACTRIM DS 800-160 MG TAB 1 tab by mouth twice daily X 10 DAYS 2 BACTRIM DS 800-160 MG TAB 19830105 TRIMETHOPRIM-SULFAMETH OXAZOLE Inactive TRIMETHOPRIM 100 MG TABS 1/2 qd TRIMETHOPRI M 100 MG TABS 19830102 TRIMETHOPRIM Inactive CETIRIZINE HCL 5 MG TABS Take 1 tablet by mouth daily CETIRIZINE HCL 5 MG TABS 0883260 CETIRIZINE HCL Inactive PRAMIPEXOLE DIHYDROCHLORIDE 0.125 MG ORAL TABS take 1 tablet po qhs for restless leg syndrome. PRAMIPEXOLE DIHYDROC HLORIDE 0.125 MG ORAL TABS 007193 PRAMIPEXOLE DIHYDROCHLORIDE Inactive MIRTAZAPINE 15 MG ORAL TABS 1/2 tab by mouth at bedtime. MIRTAZAPINE 15 MG ORAL TABS 149120 MIRTAZAPINE Inactive DIFLUCAN 100 MG TAB 1 tablet by mouth daily X 3 DAYS 2 DIFLUCAN 100 MG TAB 150983 FLUCONAZOLE Inactive DIFLUCAN 100 MG TABS 1 tablet by mouth every other day for 2 dos es DIFLUCAN 100 MG TABS 485924 FLUCONAZOLE Inactive CEFTIN 250 MG TAB 1 tablet twice daily x 7 days 11/19 CEFTIN 250 MG TAB 608832 CEFUROXIME AXETIL Inactive CYMBALTA 30 MG CPEP 1 cap by mouth daily with 60mg 201 05/09/11 CYMBALTA 30 MG CPEP 185454 DULOXETINE HCL Inactive CYMBALTA 60 MG CPEP Take 1 tablet by mouth daily 05/13 CYMBALTA 60 MG CPEP 263190 DULOXETINE HCL Inactive BACTRIM DS 800-160 MG TAB 1 tab by mouth twice daily 2 BACTRIM DS 800-160 MG TAB 19830105 TRIMETHOPRIM-SULFAMETHOXAZOLE Inac tive ZITHROMAX 250 MG TAB 2 po today, then 1 po q days 2-5 ZITHROMAX 250 MG TAB 4282344 AZITHROMYCIN Inactive BACTRIM DS 800-160 MG TAB [...] by mouth daily DIFLUCAN 150 MG TAB 396311 FLUCONAZOLE Inactive BACTRIM DS 800-160 MG TAB 1 tab by mouth twice daily 2 BACTRIM DS 800-160 MG TAB 19830105 TRIMETHOPRIM-SULFAMETHOXAZOLE Inac tive BACTRIM DS 800-160 MG TAB 1 tab by mouth twice daily 2 BACTRIM DS 800-160 MG TAB 19830105 TRIMETHOPRIM-SULFAMETHOXAZOLE Inac tive DIFLUCAN 100 MG TAB 1 tablet by mouth daily DIFLUCAN 100 MG TAB 115772 FLUCONAZOLE Inactive Advance Directives Directive Description Start [...] ... - Chemistry sodium, serum 144 mmol/L 093-168 5460/06/14 carbon dioxide, venous blood 29.4 mmol/L 21.0-32 .0 potassium, serum 4.4 mmol/L 3.5-5.2 chloride, serum 108 mmol/L 98-107 blood glucose 100 mg/dL 65-110 urea nitrogen, blood 9 mg/dL 7-18 creatinine, serum 0.67 mg/dL 0.55-1.30 alanine aminotransferase (SGPT), serum 24 U/L 12-78 aspartate aminotransferase (SGOT), serum 15 U/L 15-37 calcium, serum 9.3 mg/dL 8.5-10.1 bilirubin, serum, total 0.50 mg/dL 0.00-1.00 cholesterol, serum 268 mg/dL 535-973 9273/06/14 triglyceride, serum, fasting 126 mg/dL 30-200 HDL [...] mg/dL Encounters Code Encounter Date Provider Facility CPT-84816 Level 4 Est. Patient 13:56:54 CDT Tesfaye pearson MD [facility] CPT-90831 Level 4 Est. Patient 13:24:25 CDT Stephanie MERCADO [facility] CPT-62317 Level 4 Est. Patient 09:14:56 CDT Tesfaye pearson MD [facility]-22211 Level 4 Est. Patient 18:40:25 DRIFTMAN Tesfaye pearson MD [facility]-83215 Level 4 Est. Patient 18:13:07 DRIFTMAN Tesfaye pearson MD [facility]-02840 Level 3 Est. Patient 10:46:32 CDT Rj cotto DO [facility]-66022 Level 4 Est. Patient 20:19:25 CDT Tesfaye pearson MD [facility]-14305 Level 3 Est. Patient 09:07:31 CDT Tesfaye pearson MD [facility]-18589 Level 4 Est. Patient 13:12:56 CDT Tesfaye pearson MD [facility]-20274 Level 4 Est. Patient 21:24:55 DRIFTMAN Tesfaye pearson MD [facility]-00497 Level 3 Est. Patient 13:45:04 DRIFTMAN Tesfaye pearson MD [facility] CPT-01379 Level 4 Est. Patient 13:50:45 CDT Tesfaye pearson MD [facility] CPT-94479 Level 3 Est. Patient 10:16:10 CDT Tesfaye pearson MD [facility] CPT-60259 Level 3 Est. Patient 16:36:07 DRIFTMAN Kayla jameson MD [facility]-15057 Level 4 Est. Patient 16:00:14 DRIFTMAN Tesfaye pearson MD [facility]-56420 Level 4 Est. Patient 11:02:24 DRIFTMAN Tesfaye pearson MD [facility]-34102 Level 3 Est. Patient 20:21:43 DRIFTMAN Kayla jameson MD [facility]-02245 Level 3 Est. Patient 13:27:28 DRIFTMAN Kayla jameson MD [facility] CPT-44735 Level 4 Est. Patient 15:57:17 DRIFTMAN Tesfaye pearson MD [facility] CPT-72348 Level 3 New Patient 13:25:47 CDT Tesfaye kidd MD [facility] CPT-98556 Level 3 New Patient 17:22:21 CDT Kayla angel MD [facility] Procedures Code Procedure Name Date Entry Date Standard Desc ription CPT-41155 Bone Density - XRAY USE ONLY 11:43:58 CDT 2 CPT-39990 Bone Density - XRAY USE ONLY 10:05:16 CDT 2 CPT-63367 Prv Med New Pt 40-64 yrs 18:19:25 CDT 2016 CPT-68270 Foot, right, comp min 3V - XRAY USE ONLY 10:38:34 CDT CPT-G0439 Subsequent Annual Wellness Exam 13:55:04 CDT CPT-G0438 Initial Annual Wellness Exam 11:23:17 CD T CPT-J2930 Solu Medrol 125 mg (Methyl Prednisolone Sodium Succinate) 17:29:12 DRIFTMAN CPT-88700 Abx/Therapy Injection 17:29:11 DRIFTMAN CPT-J2930 Solu Medrol 125 mg (Methyl Prednisolone Sodium Succinate) 12:34:38 DRIFTMAN CPT-J3420 Vitamin B12 1000mcg (Cyanocobalamin) 09:12:55 CDT CPT-J3420 Vitamin B12 1000mcg (Cyanocobalamin) 16:28:06 DRIFTMAN CPT-12225 Venipuncture Draw Fee 08:39:53 CDT CPT-J3420 Vitamin B12 1000mcg (Cyanocobalamin) 08:46:22 CDT CPT-50992 Abx/Therapy Injection 08:46:22 CDT CPT-J3420 Vitamin B12 1000mcg (Cyanocobalamin) 08:41:26 CDT CPT-58595 Abx/Therapy Injection 08:41:26 CDT CPT-J3420 Vitamin B12 1000mcg (Cyanocobalamin) 08:57:15 CDT CPT-16455 Abx/Therapy Injection 08:57:15 CDT CPT-J3420 Vitamin B12 1000mcg (Cyanocobalamin) 10:59:03 CDT CPT-95367 Abx/Therapy Injection 10:59:03 CDT CPT-J3420 Vitamin B12 1000mcg (Cyanocobalamin) 15:05:39 CDT CPT-83343 Abx/Therapy Injection 15:05:39 CDT CPT-J3420 Vitamin B12 1000mcg (Cyanocobalamin) 13:50:45 CDT CPT-J3420 Vitamin B12 1000mcg (Cyanocobalamin) 08:48:55 CDT CPT-06645 Abx/Therapy Injection 08:48:55 CDT CPT-J3420 Vitamin B12 1000mcg (Cyanocobalamin) 09:14:54 CDT CPT-59685 Abx/Therapy Injection 09:14:54 CDT CPT-J3420 Vitamin B12 1000mcg (Cyanocobalamin) 09:06:06 CDT CPT-78314 Abx/Therapy Injection 09:06:06 CDT CPT-J3420 Vitamin B12 1000mcg (Cyanocobalamin) 09:49:14 CDT CPT-39104 Abx/Therapy Injection 09:49:14 CDT CPT-J3420 Vitamin B12 1000mcg (Cyanocobalamin) 09:10:30 DRIFTMAN CPT-98752 Abx/Therapy Injection 09:10:30 DRIFTMAN CPT-J3420 Vitamin B12 1000mcg (Cyanocobalamin) 09:11:07 DRIFTMAN CPT-31303 Abx/Therapy Injection 09:11:07 DRIFTMAN CPT-J3420 Vitamin B12 1000mcg (Cyanocobalamin) 09:57:03 DRIFTMAN CPT-55317 Abx/Therapy Injection 09:57:03 DRIFTMAN CPT-J3420 Vitamin B12 1000mcg (Cyanocobalamin) 09:23:21 DRIFTMAN CPT-29063 Abx/Therapy Injection 09:23:21 DRIFTMAN CPT-33907 Urine Dip (Floor Use Only) 20:21:44 DRIFTMAN 201 02/12/11 CPT-25872 UA Dip Auto (Floor Use Only) 10:04:39 DRIFTMAN 2 CPT-81799 Urine Dip (Floor Use Only) 13:27:28 DRIFTMAN 201 02/12/01 CPT-55020 Bladder Scan 13:27:28 DRIFTMAN CPT-99262 Abd single AP View 14:30:51 DRIFTMAN CPT-OV Office Visit 10:15:43 CDT CPT-15305 Urine Dip (Floor Use Only) 17:22:21 CDT 201 02/09/02 CPT-35336 Bladder Scan 17:22:21 CDT
--- OUTSIDE RECORDS SUMMARY | 2020-05-05 11:46 | XMS REPORT | Clinical Summary ---
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 Pain in limb Joint pain 719.40 Active Chelsea Cardenas APRN Pain in joint, site unspecified Tobacco [...] TABLET 1 tablet by mouth daily FLUCONAZOLE 77597651691 Active Laurence Dominguez Active BACTRIM DS 800-160 MG ORAL TABLET 1 tab by mouth twice daily 201 06/09/02 TRIMETHOPRIM-SULFAMETHOXAZOLE 91678874142 Active Laurence Dominguez Active DIFLUCAN 100 MG ORAL TABLET 1 tablet by mouth daily 20 20/05/01 FLUCONAZOLE 32368091350 No Longer Active Tesfaye Sherman MD Acti ve PREDNISONE 20 MG ORAL TABLET 1 tablet by mouth twice d aily for 3 days, then 1 tablet daily for 3 days PREDNISONE 73765415642 Active Tesfaye Sherman MD Active ZITHROMAX 250 MG ORAL TABLET 2 po today, then 1 po q days 2-5 20 20/04/28 AZITHROMYCIN 87420532572 No Longer Active Tesfaye Sherman MD Active MECLIZINE HCL 25 MG ORAL TABLET one tab po qday prn dizziness 20 17/09/06 MECLIZINE HCL 82098702867 No Longer Active Tesfaye Sherman MD Active PROAIR HFA 108 (90 BASE) MCG/ACT INHALATION AEROSOL SO LUTION 1 puff every 6 hours as needed ALBUTEROL SULFATE 16911521202 No Long er Active Tesfaye Sherman MD Active OXYCODONE-ACETAMINOPHEN 5-325 MG ORAL TABLET Take one tablet by mouth every 6 hours as needed. Use sparingly OXYCODONE-ACETAMINOPHEN 70159539974 Active Tesfaye Sherman MD Active PREDNISONE 20 MG ORAL TABLET 1 tab twice daily for 3 d ay, then one daily for three days PREDNISONE 65380954659 No Longer Active Tesfaye Sherman MD Active MECLIZINE HCL 25 MG ORAL TABLET one 4 times a day as needed for dizziness MECLIZINE HCL 11950905978 Active Laurence Dominguez Active DIFLUCAN 100 MG ORAL TABLET 1 tablet by mouth daily FLUCONAZOLE 90622801219 Active Laurence Dominguez Active AMOXICILLIN 500 MG ORAL CAPSULE 1 cap by mouth three times a day AMOXICILLIN 76483282318 No Longer Active Laurence Dominguez Acti ve VENLAFAXINE HCL 75 MG ORAL TABLET 1 am 1/2 at noon VENLAFAXINE HCL 54272395172 Active Tesfaye Sherman MD Active DIFLUCAN 100 MG ORAL TABLET 1 tablet by mouth daily 20 19/08/26 FLUCONAZOLE 65876398354 No Longer Active Tesfaye Sherman MD Acti ve BACTRIM DS 800-160 MG ORAL TABLET 1 tab by mouth twice daily 201 05/10/28 TRIMETHOPRIM-SULFAMETHOXAZOLE 15761848740 No Longer Active Fer Dominguez Active FOSAMAX 70 MG ORAL TABLET 1 po qweek. Take 30min prio r to first food/drink. Avoid lying down x 1 hour. ALENDRONATE SODIUM 31612362 144 No Longer Active Laurence Dominguez Active REPHRESH PRO-B ORAL CAPSULE 1 tablet daily LACT OBACILLUS 43892084089 Active Edith Burch MD Active CYMBALTA 60 MG ORAL CAPSULE DELAYED RELEASE PARTICLES Take 1 tablet by mouth daily DULOXETINE HCL 83866229137 No Longer Active Edith Burch MD Active CYMBALTA 30 MG ORAL CAPSULE DELAYED RELEASE PARTICLES 1 cap by mouth daily with 60mg DULOXETINE HCL 66655315302 No Longer Active Jordan Burch MD Active FISH OIL 1000 MG ORAL CAPSULE DELAYED RELEASE 1 pill b y mouth daily for cholesterol OMEGA-3 FATTY ACIDS 71158412785 Active Cee Jaffe LPN Active RED YEAST RICE 600 MG ORAL CAPSULE 1 pill by mouth daily RED YEAST RICE EXTRACT 51923474118 Active KENDELL Moreno e DIFLUCAN 100 MG ORAL TABLET 1 tablet by mouth daily 19/03/05 FLUCONAZOLE 15765733792 No Longer Active Tesfaye Sherman MD Acti ve BACTRIM DS 800-160 MG ORAL TABLET 1 tab by mouth twice daily 201 05/06/28 TRIMETHOPRIM-SULFAMETHOXAZOLE 31672093806 No Longer Active Umer Sherman MD Active BACTRIM DS 800-160 MG ORAL TABLET 1 tab by mouth twice daily 201 05/04/15 TRIMETHOPRIM-SULFAMETHOXAZOLE 46129351048 No Longer Active Umer Sherman MD Active DIFLUCAN 150 MG ORAL TABLET 1 tablet by mouth daily 20 18/09/20 FLUCONAZOLE 63031475913 No Longer Active Tesfaye Sherman MD Acti ve BACTRIM DS 800-160 MG ORAL TABLET 1 tab by mouth twice daily 201 04/13/17 TRIMETHOPRIM-SULFAMETHOXAZOLE 27661911378 No Longer Active Umer Sherman MD Active ROPINIROLE HCL 0.25 MG ORAL TABLET 1 TAB PO Q HS ROPINIROLE HCL 35514722546 Active Tesfaye Sherman MD Active CEFTIN 250 MG ORAL TABLET 1 tablet twice daily x 7 days CEFUROXIME AXETIL 04387386297 No Longer Active Tesfaye Sherman MD Active DIFLUCAN 100 MG ORAL TABLET 1 tablet by mouth every other da y for 2 doses FLUCONAZOLE 42612255154 No Longer Active Tesfaye barron MD Active DIFLUCAN 100 MG ORAL TABLET 1 tablet by mouth daily X 3 DAYS 201 04/09/01 FLUCONAZOLE 93731467959 No Longer Active Rj Lyons tive MIRTAZAPINE 15 MG ORAL TABLET 1/2 tab by mouth at bedtime. 03/13 MIRTAZAPINE 73451657255 No Longer Active Tesfaye Sherman MD Active BACTRIM DS 800-160 MG ORAL TABLET 1 tab by mouth twice daily 201 04/09/01 TRIMETHOPRIM-SULFAMETHOXAZOLE 76378260219 No Longer Active Umer Sherman MD Active PRAMIPEXOLE DIHYDROCHLORIDE 0.125 MG ORAL TABLET take 1 tablet po qhs for restless leg syndrome. PRAMIPEXOLE DIHYDROCHLORI DE 58642872514 No Longer Active Tesfaye Sherman MD Active MAGNESIUM 400 MG ORAL TABLET 1 tab po daily MAGNRenetta SIUM 88564284126 Active Chelsea Cardenas APRN Active SUDAFED 24 HOUR 240 MG ORAL TABLET EXTENDED RELEASE 24 HOUR 1 tab po daily PSEUDOEPHEDRINE HCL 62116966730 Active Chelsea Cardenas APRN Active CETIRIZINE HCL 5 MG ORAL TABLET Take 1 tablet by mouth daily CETIRIZINE HCL 22277676921 No Longer Active Chelsea Cardenas APRN Activ e TRIMETHOPRIM 100 MG ORAL TABLET 1/2 qd TRIM ETHOPRIM 57060000515 No Longer Active Chelsea Cardenas APRN Active BACTRIM DS 800-160 MG ORAL TABLET 1 tab by mouth twice daily 201 04/04/11 TRIMETHOPRIM-SULFAMETHOXAZOLE 92433357264 No Longer Active D patricia Sherman MD Active BACTRIM DS 800-160 MG ORAL TABLET 1 tab by mouth twice daily X 10 DAYS TRIMETHOPRIM-SULFAMETHOXAZOLE 49808436642 No Longer Active Tesfaye Sherman MD Active AMOXICILLIN 500 MG ORAL CAPSULE 1 cap by mouth three times a day AMOXICILLIN 16021616060 No Longer Active Adriana Arredondo Active B-12 1000 MCG ORAL LOZENGE 1 tab po daily CYANO COBALAMIN 91126656068 Active Tesfaye Sherman MD Active VITAMIN D3 2000 UNIT ORAL TABLET 1 daily, for vitamin D deficien cy CHOLECALCIFEROL 28849242298 No Longer Active Tesfaye Sherman MD Active TIZANIDINE HCL 2 MG ORAL TABLET take 1-[address] [facility] every day at bedtime at 9pm PRN TIZANIDINE HCL 87301256796 Active Tesfaye hewitt MD Active ZITHROMAX 250 MG ORAL TABLET 2 po today, then 1 po q days 2-5 20 15/02/10 AZITHROMYCIN 71744035749 No Longer Active Tesfaye Sherman MD Active BACTRIM DS 800-160 MG ORAL TABLET 1 tab by mouth twice daily 201 03/03/23 TRIMETHOPRIM-SULFAMETHOXAZOLE 21171816912 No Longer Active Umer Sherman MD Active PRELIEF 340 (65-50) MG (CA-P) ORAL TABLET CALCIUM GLYCEROPHOSPHATE 21490306017 Active Tesfaye Sherman MD Acti ve [facility] NIACIN FLUSH FREE 400-100 MG ORAL CAPSULE 1 daily NIACIN-INOSITOL 90163052744 Active Kayla Cooper MD Activ e DIFLUCAN 150 MG ORAL TABLET 1 qd FLUCONAZOL E 42014893533 No Longer Active Kayla Cooper MD Active FLUTICASONE PROPIONATE 50 MCG/ACT NASAL SUSPENSION 1 spray each nostril twice daily FLUTICASONE PROPIONATE 28836691330 Active Umer Sherman MD Active LOVASTATIN 20 MG ORAL TABLET Take 1 tablet by mouth daily LOVASTATIN 90358849244 No Longer Active Tesfaye Sherman MD Acti ve MELOXICAM 7.5 MG ORAL TABLET 1 tablet by mouth daily 2 MELOXICAM 69105752746 No Longer Active Tesfaye Sherman MD Acti ve GABAPENTIN 300 MG ORAL CAPSULE Take two tablets by mouth every e vening GABAPENTIN 99299976359 No Longer Active Edith Burch MD A ctive CLONAZEPAM 0.5 MG ORAL TABLET Take one tablet in the m orning and 1.5 tablet at 7pm CLONAZEPAM 90197813867 Active Kayla Cooper MD Active BACLOFEN 10 MG ORAL TABLET Take one tablet by mouth three times a d ay BACLOFEN 24723768885 Active Kayla Cooper MD Active GABAPENTIN 300 MG ORAL CAPSULE Take two tablets by mouth every e vening GABAPENTIN 300 MG ORAL CAPSULE 239621 GABAPENTIN I nactive MELOXICAM 7.5 MG ORAL TABLET 1 tablet by mouth daily 2 MELOXICAM 7.5 MG ORAL TABLET 299162 MELOXICAM Inactive LOVASTATIN 20 MG ORAL TABLET Take 1 tablet by mouth daily LOVASTATIN 20 MG ORAL TABLET 673148 LOVASTATIN Inactive DIFLUCAN 150 MG ORAL TABLET 1 qd DIFLUCAN 150 MG ORAL TABLET 480472 FLUCONAZOLE Inactive VITAMIN D3 2000 UNIT ORAL TABLET 1 daily, for vitamin D deficien cy VITAMIN D3 2000 UNIT ORAL TABLET CHOLECALCIFEROL Inactive AMOXICILLIN 500 MG ORAL CAPSULE 1 cap by mouth three times a day AMOXICILLIN 500 MG ORAL CAPSULE 279182 AMOXICILLIN Inactive BACTRIM DS 800-160 MG ORAL TABLET 1 tab by mouth twice daily X 10 DAYS BACTRIM DS 800-160 MG ORAL TABLET 543455 TRIMETHOPRIM-SULFAMETHOXAZOLE Inactive TRIMETHOPRIM 100 MG ORAL TABLET 1/2 qd 7 TRIMETHOPRIM 100 MG ORAL TABLET 212486 TRIMETHOPRIM Inactive CETIRIZINE HCL 5 MG ORAL TABLET Take 1 tablet by mouth daily CETIRIZINE HCL 5 MG ORAL TABLET 5824408 CETIRIZINE HCL Inactive PRAMIPEXOLE DIHYDROCHLORIDE 0.125 MG ORAL TABLET take 1 tablet po qhs for restless leg syndrome. PRAMIPEXOLE DIHYD ROCHLORIDE 0.125 MG ORAL TABLET 498815 PRAMIPEXOLE DIHYDROCHLORIDE Inactive MIRTAZAPINE 15 MG ORAL TABLET 1/2 tab by mouth at bedtime. 03/13 MIRTAZAPINE 15 MG ORAL TABLET 555121 MIRTAZAPINE In active DIFLUCAN 100 MG ORAL TABLET 1 tablet by mouth daily X 3 DAYS 201 04/09/01 DIFLUCAN 100 MG ORAL TABLET 685661 FLUCONAZOLE Inac tive DIFLUCAN 100 MG ORAL TABLET 1 tablet by mouth every other da y for 2 doses DIFLUCAN 100 MG ORAL TABLET 051005 FLUCONAZOLE Inactive CEFTIN 250 MG ORAL TABLET 1 tablet twice daily x 7 days CEFTIN 250 MG ORAL TABLET CEFUROXIME AXETIL Inactive CYMBALTA 30 MG ORAL CAPSULE DELAYED RELEASE PARTICLES 1 cap by mouth daily with 60mg CYMBALTA 30 MG ORAL CAPSULE DELAYED RELEASE PARTICLES 961252 DULOXETINE HCL Inactive CYMBALTA 60 MG ORAL CAPSULE DELAYED RELEASE PARTICLES Take 1 tablet by mouth daily CYMBALTA 60 MG ORAL CAPSULE DELAYED RELEA SE PARTICLES 376942 DULOXETINE HCL Inactive FOSAMAX 70 MG ORAL TABLET 1 po qweek. Take 30min prio r to first food/drink. Avoid lying down x 1 hour. FOSAMAX 70 MG ORAL TA BLET 299792 ALENDRONATE SODIUM Inactive DIFLUCAN 100 MG ORAL TABLET 1 tablet by mouth daily 19/08/26 DIFLUCAN 100 MG ORAL TABLET 677039 FLUCONAZOLE Inactive PREDNISONE 20 MG ORAL TABLET 1 tab twice daily for 3 d ay, then one daily for three days PREDNISONE 20 MG ORAL TABLET 919526 PREDNIS ONE Inactive PROAIR HFA 108 (90 BASE) MCG/ACT INHALATION AEROSOL SO LUTION 1 puff every 6 hours as needed PROAIR HFA 108 (90 B ASE) MCG/ACT INHALATION AEROSOL SOLUTION ALBUTEROL SULFATE Inactive MECLIZINE HCL 25 MG ORAL TABLET one tab po qday prn dizziness 20 17/09/06 MECLIZINE HCL 25 MG ORAL TABLET 377154 MECLIZINE HCL Inactive BACTRIM DS 800-160 MG ORAL TABLET 1 tab by mouth twice daily 201 03/03/23 BACTRIM DS 800-160 MG ORAL TABLET 362926 TRIMETHOPRIM-SULFAMETHOXAZOLE Inactive ZITHROMAX 250 MG ORAL TABLET 2 po today, then 1 po q days 2-5 20 15/02/10 ZITHROMAX 250 MG ORAL TABLET 045672 AZITHROMYCIN [place] ctive BACTRIM DS 800-160 MG ORAL TABLET [...] 20 19/03/05 DIFLUCAN 100 MG ORAL TABLET 203477 FLUCONAZOLE Inactive BACTRIM DS 800-160 MG ORAL TABLET 1 tab by mouth twice daily 201 05/10/28 BACTRIM DS 800-160 MG ORAL TABLET 19830105 TRIMETHOPRIM-SULFAMETHOXAZOLE Inactive AMOXICILLIN 500 MG ORAL CAPSULE 1 cap by mouth three times a day AMOXICILLIN 500 MG ORAL CAPSULE 670424 AMOXICILLIN Inactive ZITHROMAX 250 MG ORAL TABLET 2 po today, then 1 po q days 2-5 20 20/04/28 ZITHROMAX 250 MG ORAL TABLET 348289 AZITHROMYCIN [place] ctive DIFLUCAN 100 MG ORAL TABLET 1 tablet by mouth daily 20/05/01 DIFLUCAN 100 MG ORAL TABLET 303961 FLUCONAZOLE Inactive Advance Directives Directive Description Start Date PERMISSION TO SHARE DISCUSSED WITH PATIENT -- NO DECISION MADE DURABLE POWER OF FINANCE ADMINISTRATOR FOR HEALTHCARE DISCUSED WITH PATIENT -- FULL CODE Vital Signs Date Name Value Unit Range Description blood pressure, diastolic 89 mm[Hg] BP lyon [...] (E&M) Negative Lab Report: Comp. Metabolic Panel, [facility] - Chemistry sodium, serum 141 mmol/L 160-356 7128/01/26 carbon dioxide, venous blood 29.5 mmol/L 21.0-32 [...] 1.010 1.000-1.030 pH, urine, semiquantitative 7.0 5.0-8.5 urine color Yellow Colorless;Lightyellow;St raw;Yellow appearance, urine Clear Clear specific gravity, urine 1.015 1.000-1.030 pH, urine, semiquantitative 7.0 5.0-8.5 Office Visit: 3 MO F/U - Basic LDL target level 160 mg/dL LDL target level 160 mg/dL Office Visit: 3 MO F/U - Chemistry HDL cholesterol, serum, target level 40 mg/dL triglyceride, target level 150 mg/dL HDL cholesterol, serum, target level 40 mg/dL triglyceride, target level 150 mg/dL cholesterol, target level 200 mg/dL cholesterol, target level 200 mg/dL Office Visit: 3 month fu - Basic LDL target level 160 mg/dL Office Visit: 3 month fu - Chemistry HDL cholesterol, serum, target level 40 mg/dL triglyceride, target level 150 mg/dL cholesterol, target level 200 mg/dL Encounters Code Encounter Date Provider Facility CPT-03134 [id number] Vst-Est Level III 09:40:56 CDT Tesfaye Sherman MD [facility] CPT-22552 Level 4 Est. Patient 22:18:12 CDT Tesfaye pearson MD [facility] CPT-08839 Level 4 Est. 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 CPT-60674 Level 4 Est. Patient 13:55:29 BUILDING MATERIALS SALES ATTENDANT Tesfaye pearson MD [facility] CPT-85529 Level 4 Est. Patient 17:07:34 BUILDING MATERIALS SALES ATTENDANT Tesfaye pearson MD [facility] CPT-90287 Level 4 Est. Patient 13:56:54 CDT Tesfaye pearson MD [facility]-99483 Level 4 Est. Patient 13:24:25 CDT Chelsea sanz APRN [facility] CPT-39883 Level 4 Est. Patient 09:14:56 CDT Tesfaye pearson MD [facility] CPT-31639 Level 4 Est. 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-48693 Level 4 Est. Patient 18:13:07 BUILDING MATERIALS SALES ATTENDANT Tesfaye pearson MD [facility]-74686 Level 3 Est. Patient 10:46:32 CDT Rj cotto DO [facility] CPT-39042 Level 4 Est. Patient 20:19:25 CDT Tesfaye pearson MD [facility]-01908 Level 3 Est. Patient 09:07:31 CDT Tesfaye pearson MD [facility]-51832 Level 4 Est. Patient 13:12:56 CDT Tesfaye pearson MD [facility] CPT-93467 Level 4 Est. Patient 21:24:55 BUILDING MATERIALS SALES ATTENDANT Tesfaye pearson MD [facility]-02707 Level 3 Est. Patient 13:45:04 BUILDING MATERIALS SALES ATTENDANT Tesfaye pearson MD [facility] CPT-38106 Level 4 Est. Patient 13:50:45 CDT Tesfaye pearson MD [facility] CPT-87988 Level 3 Est. Patient 10:16:10 CDT Tesfaye pearson MD [facility] CPT-66600 Level 3 Est. Patient 16:36:07 BUILDING MATERIALS SALES ATTENDANT Kayla jameson MD [facility]-90276 Level 4 Est. Patient 16:00:14 BUILDING MATERIALS SALES ATTENDANT Tesfaye pearson MD [facility] CPT-16089 Level 4 Est. Patient 11:02:24 BUILDING MATERIALS SALES ATTENDANT Tesfaye pearson MD [facility] CPT-22370 Level 3 Est. Patient 20:21:43 BUILDING MATERIALS SALES ATTENDANT Kayla jameson MD [facility] CPT-65270 Level 3 Est. Patient 13:27:28 BUILDING MATERIALS SALES ATTENDANT Kayla jameson MD [facility] CPT-18983 Level 4 Est. Patient 15:57:17 BUILDING MATERIALS SALES ATTENDANT Tesfaye pearson MD [facility] CPT-22022 Level 3 New Patient 13:25:47 CDT Tesfaye kidd MD [facility] CPT-89023 Level 3 New Patient 17:22:21 CDT J John angel [facility] Procedures Code Procedure Name Date Entry Date Standard Desc ription CPT-G0439 Subsequent Annual Wellness Exam 22:18:11 CDT CPT-34945 Bone Density - XRAY USE ONLY 11:43:58 CDT 2 CPT-51969 Bone Density - XRAY USE ONLY 10:05:16 CDT 2 CPT-90353 Prv Med New Pt 40-64 yrs 18:19:25 CDT 2016 CPT-45653 Foot, right, comp min 3V - XRAY USE ONLY 10:38:34 CDT CPT-G0439 Subsequent Annual Wellness Exam 13:55:04 CDT CPT-G0438 Initial Annual Wellness Exam 11:23:17 CD T CPT-J2930 Solu Medrol 125 mg (Methyl Prednisolone Sodium Succinate) 17:29:12 BUILDING MATERIALS SALES ATTENDANT CPT-63927 Abx/Therapy Injection 17:29:11 BUILDING MATERIALS SALES ATTENDANT CPT-J2930 Solu Medrol 125 mg (Methyl Prednisolone Sodium Succinate) 12:34:38 BUILDING MATERIALS SALES ATTENDANT CPT-J3420 Vitamin B12 1000mcg (Cyanocobalamin) 09:12:55 CDT CPT-J3420 Vitamin B12 1000mcg (Cyanocobalamin) 16:28:06 BUILDING MATERIALS SALES ATTENDANT CPT-83855 Venipuncture Draw Fee 08:39:53 CDT CPT-J3420 Vitamin B12 1000mcg (Cyanocobalamin) 08:46:22 CDT CPT-69910 Abx/Therapy Injection 08:46:22 CDT CPT-J3420 Vitamin B12 1000mcg (Cyanocobalamin) 08:41:26 CDT CPT-68248 Abx/Therapy Injection 08:41:26 CDT CPT-J3420 Vitamin B12 1000mcg (Cyanocobalamin) 08:57:15 CDT CPT-41933 Abx/Therapy Injection 08:57:15 CDT CPT-J3420 Vitamin B12 1000mcg (Cyanocobalamin) 10:59:03 CDT CPT-36697 Abx/Therapy Injection 10:59:03 CDT CPT-J3420 Vitamin B12 1000mcg (Cyanocobalamin) 15:05:39 CDT CPT-47893 Abx/Therapy Injection 15:05:39 CDT CPT-J3420 Vitamin B12 1000mcg (Cyanocobalamin) 13:50:45 CDT CPT-J3420 Vitamin B12 1000mcg (Cyanocobalamin) 08:48:55 CDT CPT-67169 Abx/Therapy Injection 08:48:55 CDT CPT-J3420 Vitamin B12 1000mcg (Cyanocobalamin) 09:14:54 CDT CPT-37364 Abx/Therapy Injection 09:14:54 CDT CPT-J3420 Vitamin B12 1000mcg (Cyanocobalamin) 09:06:06 CDT CPT-67431 Abx/Therapy Injection 09:06:06 CDT CPT-J3420 Vitamin B12 1000mcg (Cyanocobalamin) 09:49:14 CDT CPT-59049 Abx/Therapy Injection 09:49:14 CDT CPT-J3420 Vitamin B12 1000mcg (Cyanocobalamin) 09:10:30 BUILDING MATERIALS SALES ATTENDANT CPT-04560 Abx/Therapy Injection 09:10:30 BUILDING MATERIALS SALES ATTENDANT CPT-J3420 Vitamin B12 1000mcg (Cyanocobalamin) 09:11:07 BUILDING MATERIALS SALES ATTENDANT CPT-81969 Abx/Therapy Injection 09:11:07 BUILDING MATERIALS SALES ATTENDANT CPT-J3420 Vitamin B12 1000mcg (Cyanocobalamin) 09:57:03 BUILDING MATERIALS SALES ATTENDANT CPT-96648 Abx/Therapy Injection 09:57:03 BUILDING MATERIALS SALES ATTENDANT CPT-J3420 Vitamin B12 1000mcg (Cyanocobalamin) 09:23:21 BUILDING MATERIALS SALES ATTENDANT CPT-27439 Abx/Therapy Injection 09:23:21 BUILDING MATERIALS SALES ATTENDANT CPT-91665 Urine Dip (Floor Use Only) 20:21:44 BUILDING MATERIALS SALES ATTENDANT 201 02/12/11 CPT-13429 UA Dip Auto (Floor Use Only) 10:04:39 BUILDING MATERIALS SALES ATTENDANT 2 CPT-45413 Urine Dip (Floor Use Only) 13:27:28 BUILDING MATERIALS SALES ATTENDANT 201 02/12/01 CPT-70567 Bladder Scan 13:27:28 BUILDING MATERIALS SALES ATTENDANT CPT-89243 Abd single AP View 14:30:51 BUILDING MATERIALS SALES ATTENDANT CPT-OV Office Visit 10:15:43 CDT CPT-40245 Urine Dip (Floor Use Only) 17:22:21 CDT 201 02/09/02 CPT-90938 Bladder Scan 17:22:21 CDT
--- OUTSIDE RECORDS SUMMARY | 2020-05-05 11:47 | XMS REPORT | Clinical Summary ---
Author Author Talon, Jeri Wood Organization [facility] Address Unknown Phone Unavailable Allergies, Adverse Reactions, [...] Generic Name NDC Status Provider Patient Instruction BACTRIM DS 800-160 MG TAB 1 tab by mouth twice daily 2 TRIMETHOPRIM-SULFAMETHOXAZOLE 14895347298 No Longer Active Tesfaye Sherman MD Active BACTRIM DS 800-160 MG TAB 1 tab by mouth twice daily X 10 DAYS 2 TRIMETHOPRIM-SULFAMETHOXAZOLE 44585179907 No Longer Active Umer Sherman MD Active AMOXICILLIN 500 MG CAPS 1 cap by mouth three times a day AMOXICILLIN 27296222437 No Longer Active Adriana Arredondo Active MECLIZINE HCL 25 MG TAB one tab po qday prn dizziness MECLIZINE HCL 12895560102 Active Tesfaye Sherman MD Active B-12 1000 MCG ORAL LOZG 1 tab po daily CYANOCOBAL STANTON 18858207775 Active Tesfaye Sherman MD Active VITAMIN D3 2000 UNIT TABS 1 daily, for vitamin D deficiency 2014 CHOLECALCIFEROL 93210210254 No Longer Active Tesfaye Sherman MD Active TIZANIDINE HCL 2 MG TABS take 1-2 tablet by mouth ev at bedtime at 9pm PRN TIZANIDINE HCL 94599638958 Active Tesfaye Owusu Active ZITHROMAX 250 MG TAB 2 po today, then 1 po q days 2-5 AZITHROMYCIN 59493084515 No Longer Active Tesfaye Sherman MD Acti ve BACTRIM DS 800-160 MG TAB 1 tab by mouth twice daily 2 TRIMETHOPRIM-SULFAMETHOXAZOLE 54123209671 No Longer Active Tesfaye Sherman MD Active PRELIEF 340 (65-50) MG (CA-P) ORAL TABS CALCIUM GLYCEROPHOSPHATE 90859910816 Active Tesfaye Sherman MD Active [facility] NIACIN FLUSH FREE 400-100 MG CAPS 1 daily NIACIN-INOSITOL 20484690318 Active Kayla Cooper MD Active DIFLUCAN 150 MG TABS 1 qd FLUCONAZOLE 87647 167380 No Longer Active Kayla Cooper MD Active FLUTICASONE PROPIONATE 50 MCG/ACT SUSP 1 spray each nostril twice daily FLUTICASONE PROPIONATE 89142657386 Active Tesfaye armenta MD Active LOVASTATIN 20 MG TABS Take 1 tablet by mouth daily LOVASTATIN 55517156927 No Longer Active Tesfaye Sherman MD Active MELOXICAM 7.5 MG TABS 1 tablet by mouth daily M ELOXICAM 49288980051 No Longer Active Tesfaye Sherman MD Active GABAPENTIN 300 MG CAPS Take two tablets by mouth every evening GABAPENTIN 74172492218 No Longer Active Edith Burch MD Active TRIMETHOPRIM 100 MG TABS 1/2 qd TRIMETHOPRIM 1625331 3001 Active Kayla Cooper MD Active OXYCODONE-ACETAMINOPHEN 5-325 MG TABS Take one tablet by mouth every 6 hours as needed. Max 12 tabs/day as needed OXYCODONE-ACETAMINOP HEN 16963690452 Active Tesfaye Sherman MD Active CYMBALTA 60 MG CPEP Take 1 tablet by mouth daily D ULOXETINE HCL 66524198439 Active Kayla Cooper MD Active CLONAZEPAM 0.5 MG TABS Take one tablet in the morning and 1.5 table t at 7pm CLONAZEPAM 02299059859 Active Kayla Cooper MD Active CETIRIZINE HCL 5 MG TABS Take 1 tablet by mouth daily CETIRIZINE HCL 95410481483 Active Kayla Cooper MD Active BACLOFEN 10 MG TABS Take one tablet by mouth three times a day BACLOFEN 27800454192 Active Kayla Cooper MD Active GABAPENTIN 300 MG CAPS Take two tablets by mouth every evening GABAPENTIN 300 MG CAPS 013275 GABAPENTIN Inactive MELOXICAM 7.5 MG TABS 1 tablet by mouth daily MELOXICAM 7.5 MG TABS 465578 MELOXICAM Inactive LOVASTATIN 20 MG TABS Take 1 tablet by mouth daily 201 02/12/20 LOVASTATIN 20 MG TABS 233409 LOVASTATIN Inactive DIFLUCAN 150 MG TABS 1 qd DIFLUCAN 150 MG T ABS 157929 FLUCONAZOLE Inactive VITAMIN D3 2000 UNIT TABS 1 daily, for vitamin D deficiency 2014 VITAMIN D3 2000 UNIT TABS CHOLECALCIFEROL Inacti ve AMOXICILLIN 500 MG CAPS 1 cap by mouth three times a day AMOXICILLIN 500 MG CAPS 689687 AMOXICILLIN Inactive BACTRIM DS 800-160 MG TAB 1 tab by mouth twice daily X 10 DAYS 2 BACTRIM DS 800-160 MG TAB 166138 TRIMETHOPRIM-SULFAMETH OXAZOLE Inactive BACTRIM DS 800-160 MG TAB 1 tab by mouth twice daily 2 BACTRIM DS 800-160 MG TAB 918141 TRIMETHOPRIM-SULFAMETHOXAZOLE Inac tive ZITHROMAX 250 MG TAB 2 po today, then 1 po q days 2-5 ZITHROMAX 250 MG TAB 3621527 AZITHROMYCIN Inactive BACTRIM DS 800-160 MG TAB 1 tab by mouth twice daily 2 BACTRIM DS 800-160 MG TAB 281672 TRIMETHOPRIM-SULFAMETHOXAZOLE Inac tive Advance Directives Directive Description Start Date PERMISSION TO SHARE Vital Signs Date Name Value Unit Range Description blood pressure, diastolic - 8462-4 98 mm[Hg] [...] - 3141-9 113.5 [lb_av] Weigh t Measured blood pressure, diastolic [...] pH, urine, semiquantitative 7.5 5.0-8.5 Office Visit: 3 MONTH RECHECK - Chemistr y cholesterol, target level 200 mg/dL LDL target level 160 mg/dL HDL cholesterol, serum, target level 40 mg/dL triglyceride, target level 150 mg/dL Encounters Code Encounter Date Provider Facility CPT-08759 Level 4 Est. Patient 21:24:55 FLIGHT HOSTESS Tesfaye pearson MD [facility] CPT-91292 Level 3 Est. Patient 13:45:04 FLIGHT HOSTESS Tesfaye pearson MD [facility] CPT-74787 Level 4 Est. Patient 13:50:45 CDT Tesfaye pearson MD [facility] CPT-38002 Level 3 Est. Patient 10:16:10 CDT Tesfaye pearson MD [facility] CPT-06111 Level 3 Est. Patient 16:36:07 FLIGHT HOSTESS Kayla jameson MD [facility] CPT-14073 Level 4 Est. Patient 16:00:14 FLIGHT HOSTESS Tesfaye pearson MD [facility] CPT-06040 Level 4 Est. Patient 11:02:24 FLIGHT HOSTESS Tesfaye pearson MD [facility] CPT-75171 Level 3 Est. Patient 20:21:43 FLIGHT HOSTESS Kayla jameson MD [facility] CPT-81533 Level 3 Est. Patient 13:27:28 FLIGHT HOSTESS Kayla jameson MD [facility] CPT-99507 Level 4 Est. Patient 15:57:17 FLIGHT HOSTESS Tesfaye pearson MD [facility] CPT-40615 Level 3 New Patient 13:25:47 CDT Tesfaye kidd MD [facility] CPT-69457 Level 3 New Patient 17:22:21 CDT Kayla angel [facility] Procedures Code Procedure Name Date Entry Date Standard Desc ription CPT-J2930 Solu Medrol 125 mg (Methyl Prednisolone Sodium Succinate) 17:29:12 FLIGHT HOSTESS CPT-37227 Abx/Therapy Injection 17:29:11 FLIGHT HOSTESS CPT-J2930 Solu Medrol 125 mg (Methyl Prednisolone Sodium Succinate) 12:34:38 FLIGHT HOSTESS CPT-J3420 Vitamin B12 1000mcg (Cyanocobalamin) 09:12:55 CDT CPT-J3420 Vitamin B12 1000mcg (Cyanocobalamin) 16:28:06 FLIGHT HOSTESS CPT-39982 Venipuncture Draw Fee 08:39:53 CDT CPT-J3420 Vitamin B12 1000mcg (Cyanocobalamin) 08:46:22 CDT CPT-98671 Abx/Therapy Injection 08:46:22 CDT CPT-J3420 Vitamin B12 1000mcg (Cyanocobalamin) 08:41:26 CDT CPT-47016 Abx/Therapy Injection 08:41:26 CDT CPT-J3420 Vitamin B12 1000mcg (Cyanocobalamin) 08:57:15 CDT CPT-09710 Abx/Therapy Injection 08:57:15 CDT CPT-J3420 Vitamin B12 1000mcg (Cyanocobalamin) 10:59:03 CDT CPT-35850 Abx/Therapy Injection 10:59:03 CDT CPT-J3420 Vitamin B12 1000mcg (Cyanocobalamin) 15:05:39 CDT CPT-45798 Abx/Therapy Injection 15:05:39 CDT CPT-J3420 Vitamin B12 1000mcg (Cyanocobalamin) 13:50:45 CDT CPT-J3420 Vitamin B12 1000mcg (Cyanocobalamin) 08:48:55 CDT CPT-98909 Abx/Therapy Injection 08:48:55 CDT CPT-J3420 Vitamin B12 1000mcg (Cyanocobalamin) 09:14:54 CDT CPT-82134 Abx/Therapy Injection 09:14:54 CDT CPT-J3420 Vitamin B12 1000mcg (Cyanocobalamin) 09:06:06 CDT CPT-18828 Abx/Therapy Injection 09:06:06 CDT CPT-J3420 Vitamin B12 1000mcg (Cyanocobalamin) 09:49:14 CDT CPT-85463 Abx/Therapy Injection 09:49:14 CDT CPT-J3420 Vitamin B12 1000mcg (Cyanocobalamin) 09:10:30 FLIGHT HOSTESS CPT-13499 Abx/Therapy Injection 09:10:30 FLIGHT HOSTESS CPT-J3420 Vitamin B12 1000mcg (Cyanocobalamin) 09:11:07 FLIGHT HOSTESS CPT-23480 Abx/Therapy Injection 09:11:07 FLIGHT HOSTESS CPT-J3420 Vitamin B12 1000mcg (Cyanocobalamin) 09:57:03 FLIGHT HOSTESS CPT-75073 Abx/Therapy Injection 09:57:03 FLIGHT HOSTESS CPT-J3420 Vitamin B12 1000mcg (Cyanocobalamin) 09:23:21 FLIGHT HOSTESS CPT-11708 Abx/Therapy Injection 09:23:21 FLIGHT HOSTESS CPT-56888 Urine Dip (Floor Use Only) 20:21:44 FLIGHT HOSTESS 201 02/12/11 CPT-66738 UA Dip Auto (Floor Use Only) 10:04:39 FLIGHT HOSTESS 2 CPT-66450 Urine Dip (Floor Use Only) 13:27:28 FLIGHT HOSTESS 201 02/12/01 CPT-16960 Bladder Scan 13:27:28 FLIGHT HOSTESS CPT-32564 Abd single AP View 14:30:51 FLIGHT HOSTESS CPT-OV Office Visit 10:15:43 CDT CPT-33434 Urine Dip (Floor Use Only) 17:22:21 CDT 201 02/09/02 CPT-12203 Bladder Scan 17:22:21 CDT
--- OUTSIDE RECORDS SUMMARY | 2020-05-05 11:47 | XMS REPORT | Clinical Summary ---
Author Author Talon, Jeri Wood Organization [facility] Address Unknown Phone Unavailable Allergies, Adverse [...] daily, for vitamin D deficiency 2014 CHOLECALCIFEROL 90705794752 No Longer Active Tesfaye Sherman MD Active TIZANIDINE HCL 2 MG TABS take 1-2 tablet by mouth ev at bedtime at 9pm PRN TIZANIDINE HCL 70279531401 Active Tesfaye Owusu Active ZITHROMAX 250 MG TAB 2 po today, then 1 po q days 2-5 AZITHROMYCIN 65887325017 No Longer Active Tesfaye Sherman MD Acti ve BACTRIM DS 800-160 MG TAB 1 tab by mouth twice daily 2 TRIMETHOPRIM-SULFAMETHOXAZOLE 86500610618 No Longer Active Tesfaye Sherman MD Active PRELIEF 340 (65-50) MG (CA-P) ORAL TABS CALCIUM GLYCEROPHOSPHATE 57476693004 Active Tesfaye Sherman MD Active [facility] NIACIN FLUSH FREE 400-100 MG CAPS 1 daily NIACIN-INOSITOL 25640349477 Active Kayla Cooper MD Active DIFLUCAN 150 MG TABS 1 qd FLUCONAZOLE 95301 212220 No Longer Active Kayla Cooper MD Active FLUTICASONE PROPIONATE 50 MCG/ACT SUSP 1 spray each nostril twice daily FLUTICASONE PROPIONATE 33622623521 Active Tesfaye armenta MD Active LOVASTATIN 20 MG TABS Take 1 tablet by mouth daily LOVASTATIN 29728334383 No Longer Active Tesfaye Sherman MD Active MELOXICAM 7.5 MG TABS 1 tablet by mouth daily M ELOXICAM 79970937145 No Longer Active Tesfaye Sherman MD Active GABAPENTIN 300 MG CAPS Take two tablets by mouth every evening GABAPENTIN 32348765425 No Longer Active Edith Burch MD Active TRIMETHOPRIM 100 MG TABS 1/2 qd TRIMETHOPRIM 3160873 3001 Active Kayla Cooper MD Active OXYCODONE-ACETAMINOPHEN 5-325 MG TABS Take one tablet by mouth every 6 hours as needed. Max 12 tabs/day as needed OXYCODONE-ACETAMINOP HEN 53184815096 Active Tesfaye Sherman MD Active CYMBALTA 60 MG CPEP Take 1 tablet by mouth daily D ULOXETINE HCL 62472488654 Active Kayla Cooper MD Active CLONAZEPAM 0.5 MG TABS Take one tablet in the morning and 1.5 table t at 7pm CLONAZEPAM 65116688035 Active Kayla Cooper MD Active CETIRIZINE HCL 5 MG TABS Take 1 tablet by mouth daily CETIRIZINE HCL 42571871529 Active Kayla Cooepr MD Active BACLOFEN 10 MG TABS Take one tablet by mouth three times a day BACLOFEN 57444671296 Active Kayla Cooper MD Active GABAPENTIN 300 MG CAPS Take two tablets by mouth every evening GABAPENTIN 300 MG CAPS 678030 GABAPENTIN Inactive MELOXICAM 7.5 MG TABS 1 tablet by mouth daily MELOXICAM 7.5 MG TABS 625415 MELOXICAM Inactive LOVASTATIN 20 MG TABS Take 1 tablet by mouth daily 201 02/12/20 LOVASTATIN 20 MG TABS 292427 LOVASTATIN Inactive DIFLUCAN 150 MG TABS 1 qd DIFLUCAN 150 MG T ABS 170553 FLUCONAZOLE Inactive VITAMIN D3 2000 UNIT TABS 1 daily, for vitamin D deficiency 2014 VITAMIN D3 2000 UNIT TABS CHOLECALCIFEROL Inacti ve BACTRIM DS 800-160 MG TAB 1 tab by mouth twice daily 2 BACTRIM DS 800-160 MG TAB TRIMETHOPRIM-SULFAMETHOXAZOLE Inac tive ZITHROMAX 250 MG TAB 2 po today, then 1 po q days 2-5 ZITHROMAX 250 MG TAB 5593623 AZITHROMYCIN Inactive Advance Directives Directive Description Start [...] Panel - Chemistry sodium, serum 138 mmol/L 698-274 3849/10/20 potassium, serum 4.5 mmol/L 3.5-5.2 chloride, serum [...] 0.90 mg/dL 0.00-1.00 cholesterol, serum 237 mg/dL 040-889 7995/10/20 triglyceride, serum, fasting 71 mg/dL 30-200 HDL [...] Panel - Chemistry cholesterol, serum 221 mg/dL 999-895 7659/01/23 triglyceride, serum, fasting 81 mg/dL 30-200 HDL [...] negative Encounters Code Encounter Date Provider Facility CPT-19561 Level 4 Est. Patient 13:50:45 CDT Tesfaye pearson MD [facility] CPT-74027 Level 3 Est. Patient 10:16:10 CDT Tesfaye pearson MD [facility] CPT-78098 Level 3 Est. Patient 16:36:07 INDUSTRIAL EQUIPMENT MECHANIC Kayla jameson MD [facility] [id number] Level 4 Est. Patient 16:00:14 INDUSTRIAL EQUIPMENT MECHANIC Tesfaye pearson MD [facility] CPT-86694 Level 4 Est. Patient 11:02:24 INDUSTRIAL EQUIPMENT MECHANIC Tesfaye pearson MD [facility] CPT-33627 Level 3 Est. Patient 20:21:43 INDUSTRIAL EQUIPMENT MECHANIC Kayla jameson MD [facility] CPT-43189 Level 3 Est. Patient 13:27:28 INDUSTRIAL EQUIPMENT MECHANIC Kayla jameson MD [facility] [id number] Level 4 Est. Patient 15:57:17 INDUSTRIAL EQUIPMENT MECHANIC Tesfaye pearson MD [facility] CPT-11499 Level 3 New Patient 13:25:47 CDT Tesfaye kidd MD [facility] CPT-82867 Level 3 New Patient 17:22:21 CDT Kayla angel MD [facility] Procedures Code Procedure Name Date Entry Date Standard Desc ription CPT-J3420 Vitamin B12 1000mcg (Cyanocobalamin) 15:05:39 CDT CPT-79716 Abx/Therapy Injection 15:05:39 CDT CPT-J3420 Vitamin B12 1000mcg (Cyanocobalamin) 13:50:45 CDT CPT-J3420 Vitamin B12 1000mcg (Cyanocobalamin) 08:48:55 CDT CPT-00156 Abx/Therapy Injection 08:48:55 CDT CPT-J3420 Vitamin B12 1000mcg (Cyanocobalamin) 09:14:54 CDT CPT-86791 Abx/Therapy Injection 09:14:54 CDT CPT-J3420 Vitamin B12 1000mcg (Cyanocobalamin) 09:06:06 CDT CPT-17714 Abx/Therapy Injection 09:06:06 CDT CPT-J3420 Vitamin B12 1000mcg (Cyanocobalamin) 09:49:14 CDT CPT-65837 Abx/Therapy Injection 09:49:14 CDT CPT-J3420 Vitamin B12 1000mcg (Cyanocobalamin) 09:10:30 INDUSTRIAL EQUIPMENT MECHANIC CPT-92739 Abx/Therapy Injection 09:10:30 INDUSTRIAL EQUIPMENT MECHANIC CPT-J3420 Vitamin B12 1000mcg (Cyanocobalamin) 09:11:07 INDUSTRIAL EQUIPMENT MECHANIC CPT-60979 Abx/Therapy Injection 09:11:07 INDUSTRIAL EQUIPMENT MECHANIC CPT-J3420 Vitamin B12 1000mcg (Cyanocobalamin) 09:57:03 INDUSTRIAL EQUIPMENT MECHANIC CPT-99797 Abx/Therapy Injection 09:57:03 INDUSTRIAL EQUIPMENT MECHANIC CPT-J3420 Vitamin B12 1000mcg (Cyanocobalamin) 09:23:21 INDUSTRIAL EQUIPMENT MECHANIC CPT-22534 Abx/Therapy Injection 09:23:21 INDUSTRIAL EQUIPMENT MECHANIC CPT-52604 Urine Dip (Floor Use Only) 20:21:44 INDUSTRIAL EQUIPMENT MECHANIC 201 02/12/11 CPT-25090 UA Dip Auto (Floor Use Only) 10:04:39 INDUSTRIAL EQUIPMENT MECHANIC 2 CPT-27643 Urine Dip (Floor Use Only) 13:27:28 INDUSTRIAL EQUIPMENT MECHANIC 201 02/12/01 CPT-64862 Bladder Scan 13:27:28 INDUSTRIAL EQUIPMENT MECHANIC CPT-85045 Abd single AP View 14:30:51 INDUSTRIAL EQUIPMENT MECHANIC CPT-OV Office Visit 10:15:43 CDT CPT-54802 Urine Dip (Floor Use Only) 17:22:21 CDT 201 02/09/02 CPT-62431 Bladder Scan 17:22:21 CDT
--- OUTSIDE RECORDS SUMMARY | 2020-05-05 11:47 | XMS REPORT | Clinical Summary ---
Author Author Talon, Jeri Wood Organization [facility] Address Unknown Phone Unavailable Allergies, Adverse Reactions, Alerts Allergy Name Reaction Description Start Date Severity Status Pr ovider NITROFURANTION Critical Active Tesfaye kidd MD XANAX Critical Active Kayla Shaw on MD PURDY Critical Active Kayla Shaw on NUVIGIIsrael Critical Active Kayla Shaw on MD DUKEROXLINNEA MEDLEY Critical Active Kayla Edward son BENADRYIsrael Critical Active Kayla Shaw on ATIVAN Critical [...] Generic Name NDC Status Provider Patient Instruction MAGNESIUM 400 MG ORAL TABS 1 tab po daily MAGNESI UM 43513645787 Active Chelsea Barba APRN Active SUDAFED 24 HOUR 240 MG ORAL [id number] 1 tab po daily PSEUDOEPHEDRINE HCL 95357525520 Active Chelsea Barba APRN A ctive CETIRIZINE HCL 5 MG TABS Take 1 tablet by mouth daily CETIRIZINE HCL 59173700118 No Longer Active Chelsea Barba APRN Acti ve TRIMETHOPRIM 100 MG TABS 1/2 qd TRIMETHOPRIM 47953325372 No Longer Active Chelsea Barba APRN Active PRAMIPEXOLE DIHYDROCHLORIDE 0.125 MG ORAL TABS take 1 tablet po qhs for restless leg syndrome. PRAMIPEXOLE DIHYDROCHLORIDE 95837849981 Acti ve Tesfaye Sherman MD Active MIRTAZAPINE 15 MG ORAL TABS 1/2 tab by mouth at bedtime. MIRTAZAPINE 76772858285 Active Tesfaye Sherman MD Active BACTRIM DS 800-160 MG TAB 1 tab by mouth twice daily 2 TRIMETHOPRIM-SULFAMETHOXAZOLE 19445747379 No Longer Active Tesfaye Sherman MD Active BACTRIM DS 800-160 MG TAB 1 tab by mouth twice daily X 10 DAYS 2 TRIMETHOPRIM-SULFAMETHOXAZOLE 69776702452 No Longer Active Umer Sherman MD Active AMOXICILLIN 500 MG CAPS 1 cap by mouth three times a day AMOXICILLIN 09825380167 No Longer Active Adriana Arredondo Active MECLIZINE HCL 25 MG TAB one tab po qday prn dizziness MECLIZINE HCL 28672600452 Active Tesfaye Sherman MD Active B-12 1000 MCG ORAL LOZG 1 tab po daily CYANOCOBAL STANTON 15944331141 Active Tesfaye Sherman MD Active VITAMIN D3 2000 UNIT TABS 1 daily, for vitamin D deficiency 2014 CHOLECALCIFEROL 31888593957 No Longer Active Tesfaye Sherman MD Active TIZANIDINE HCL 2 MG TABS take 1-2 tablet by mouth at bedtime at 9pm PRN TIZANIDINE HCL 84946515686 Active Tesfaye Owusu Active ZITHROMAX 250 MG TAB 2 po today, then 1 po q days 2-5 AZITHROMYCIN 95256131980 No Longer Active Tesfaye Sherman MD Acti ve BACTRIM DS 800-160 MG TAB 1 tab by mouth twice daily 2 TRIMETHOPRIM-SULFAMETHOXAZOLE 40154634992 No Longer Active Tesfaye Sherman MD Active PRELIEF 340 (65-50) MG (CA-P) ORAL TABS CALCIUM GLYCEROPHOSPHATE 76184922800 Active Tesfaye Sherman MD Active [facility] NIACIN FLUSH FREE 400-100 MG CAPS 1 daily NIACIN-INOSITOL 79410840407 Active Kayla Cooper MD Active DIFLUCAN 150 MG TABS 1 qd FLUCONAZOLE 91088 756140 No Longer Active Kayla Cooper MD Active FLUTICASONE PROPIONATE 50 MCG/ACT SUSP 1 spray each nostril twice daily FLUTICASONE PROPIONATE 41128372415 Active Tesfaye armenta MD Active LOVASTATIN 20 MG TABS Take 1 tablet by mouth daily LOVASTATIN 30290763631 No Longer Active Tesfaye Sherman MD Active MELOXICAM 7.5 MG TABS 1 tablet by mouth daily M ELOXICAM 36754596088 No Longer Active Tesfaye Sherman MD Active GABAPENTIN 300 MG CAPS Take two tablets by mouth every evening GABAPENTIN 92965166172 No Longer Active Edith Burch MD Active OXYCODONE-ACETAMINOPHEN 5-325 MG TABS Take one tablet by mouth every 6 hours as needed. Max 12 tabs/day as needed OXYCODONE-ACETAMINOP HEN 29393506057 Active Tesfaye Sherman MD Active CYMBALTA 60 MG CPEP Take 1 tablet by mouth daily D ULOXETINE HCL 67950153231 Active Kayla Cooper MD Active CLONAZEPAM 0.5 MG TABS Take one tablet in the morning and 1.5 table t at 7pm CLONAZEPAM 59894337992 Active Kayla Cooper MD Active BACLOFEN 10 MG TABS Take one tablet by mouth three times a day BACLOFEN 57439670397 Active Kayla Cooper MD Active GABAPENTIN 300 MG CAPS Take two tablets by mouth every evening GABAPENTIN 300 MG CAPS 171375 GABAPENTIN Inactive MELOXICAM 7.5 MG TABS 1 tablet by mouth daily MELOXICAM 7.5 MG TABS 034704 MELOXICAM Inactive LOVASTATIN 20 MG TABS Take 1 tablet by mouth daily 201 02/12/20 LOVASTATIN 20 MG TABS 967762 LOVASTATIN Inactive DIFLUCAN 150 MG TABS 1 qd DIFLUCAN 150 MG T ABS 296305 FLUCONAZOLE Inactive VITAMIN D3 2000 UNIT TABS 1 daily, for vitamin D deficiency 2014 VITAMIN D3 2000 UNIT TABS CHOLECALCIFEROL Inacti ve AMOXICILLIN 500 MG CAPS 1 cap by mouth three times a day AMOXICILLIN 500 MG CAPS 059086 AMOXICILLIN Inactive BACTRIM DS 800-160 MG TAB 1 tab by mouth twice daily X 10 DAYS 2 BACTRIM DS 800-160 MG TAB 283920 TRIMETHOPRIM-SULFAMETH OXAZOLE Inactive TRIMETHOPRIM 100 MG TABS 1/2 qd TRIMETHOPRI M 100 MG TABS 090234 TRIMETHOPRIM Inactive CETIRIZINE HCL 5 MG TABS Take 1 tablet by mouth daily CETIRIZINE HCL 5 MG TABS 2385836 CETIRIZINE HCL Inactive BACTRIM DS 800-160 MG TAB 1 tab by mouth twice daily 2 BACTRIM DS 800-160 MG TAB 348164 TRIMETHOPRIM-SULFAMETHOXAZOLE Inac tive ZITHROMAX 250 MG TAB 2 po today, then 1 po q days 2-5 ZITHROMAX 250 MG TAB 1814033 AZITHROMYCIN Inactive BACTRIM DS 800-160 MG TAB 1 tab by mouth twice daily 2 BACTRIM DS 800-160 MG TAB 980339 TRIMETHOPRIM-SULFAMETHOXAZOLE Inac tive Advance Directives Directive Description Start Date PERMISSION TO SHARE DISCUSSED WITH PATIENT -- NO DECISION MADE Vital Signs Date Name Value Unit Range Description blood pressure, diastolic - 8462-4 79 mm[Hg] [...] - 3141-9 111 [lb_av] Weigh t Measured Diagnostic Results Date [...] urine, semiquantitative 7.5 5.0-8.5 Office Visit: 3 month follow up [...] mg/dL Encounters Code Encounter Date Provider Facility CPT-41564 Level 4 Est. Patient 13:12:56 CDT Tesfaye pearson MD [facility] CPT-43783 Level 4 Est. Patient 21:24:55 BLENDER / COOK Tesfaye pearson MD [facility] CPT-75646 Level 3 Est. Patient 13:45:04 BLENDER / COOK Tesfaye pearson MD [facility] CPT-67484 Level 4 Est. Patient 13:50:45 CDT Tesfaye pearson MD [facility] CPT-32661 Level 3 Est. Patient 10:16:10 CDT Tesfaye pearson MD [facility] CPT-28025 Level 3 Est. Patient 16:36:07 BLENDER / COOK Kayla jameson MD [facility] CPT-22381 Level 4 Est. Patient 16:00:14 BLENDER / COOK Tesfaye pearson MD [facility] CPT-74694 Level 4 Est. Patient 11:02:24 BLENDER / COOK Tesfaye pearson MD [facility] CPT-62362 Level 3 Est. Patient 20:21:43 BLENDER / COOK Kayla jameson MD [facility] CPT-77229 Level 3 Est. Patient 13:27:28 BLENDER / COOK Kayla jameson MD [facility] CPT-25558 Level 4 Est. Patient 15:57:17 BLENDER / COOK Tesfaye pearson MD [facility] CPT-64730 Level 3 New Patient 13:25:47 CDT Tesfaye kidd MD [facility] CPT-37717 Level 3 New Patient 17:22:21 CDT Kayla angel MD [facility] Procedures Code Procedure Name Date Entry Date Standard Desc ription CPT-G0438 Initial Annual Wellness Exam 11:23:17 CD T CPT-J2930 Solu Medrol 125 mg (Methyl Prednisolone Sodium Succinate) 17:29:12 BLENDER / COOK CPT-91604 Abx/Therapy Injection 17:29:11 BLENDER / COOK CPT-J2930 Solu Medrol 125 mg (Methyl Prednisolone Sodium Succinate) 12:34:38 BLENDER / COOK CPT-J3420 Vitamin B12 1000mcg (Cyanocobalamin) 09:12:55 CDT CPT-J3420 Vitamin B12 1000mcg (Cyanocobalamin) 16:28:06 BLENDER / COOK CPT-01071 Venipuncture Draw Fee 08:39:53 CDT CPT-J3420 Vitamin B12 1000mcg (Cyanocobalamin) 08:46:22 CDT CPT-19063 Abx/Therapy Injection 08:46:22 CDT CPT-J3420 Vitamin B12 1000mcg (Cyanocobalamin) 08:41:26 CDT CPT-97335 Abx/Therapy Injection 08:41:26 CDT CPT-J3420 Vitamin B12 1000mcg (Cyanocobalamin) 08:57:15 CDT CPT-29204 Abx/Therapy Injection 08:57:15 CDT CPT-J3420 Vitamin B12 1000mcg (Cyanocobalamin) 10:59:03 CDT CPT-74344 Abx/Therapy Injection 10:59:03 CDT CPT-J3420 Vitamin B12 1000mcg (Cyanocobalamin) 15:05:39 CDT CPT-08839 Abx/Therapy Injection 15:05:39 CDT CPT-J3420 Vitamin B12 1000mcg (Cyanocobalamin) 13:50:45 CDT CPT-J3420 Vitamin B12 1000mcg (Cyanocobalamin) 08:48:55 CDT CPT-39679 Abx/Therapy Injection 08:48:55 CDT CPT-J3420 Vitamin B12 1000mcg (Cyanocobalamin) 09:14:54 CDT CPT-65147 Abx/Therapy Injection 09:14:54 CDT CPT-J3420 Vitamin B12 1000mcg (Cyanocobalamin) 09:06:06 CDT CPT-98552 Abx/Therapy Injection 09:06:06 CDT CPT-J3420 Vitamin B12 1000mcg (Cyanocobalamin) 09:49:14 CDT CPT-37606 Abx/Therapy Injection 09:49:14 CDT CPT-J3420 Vitamin B12 1000mcg (Cyanocobalamin) 09:10:30 BLENDER / COOK CPT-25261 Abx/Therapy Injection 09:10:30 BLENDER / COOK CPT-J3420 Vitamin B12 1000mcg (Cyanocobalamin) 09:11:07 BLENDER / COOK CPT-65596 Abx/Therapy Injection 09:11:07 BLENDER / COOK CPT-J3420 Vitamin B12 1000mcg (Cyanocobalamin) 09:57:03 BLENDER / COOK CPT-78469 Abx/Therapy Injection 09:57:03 BLENDER / COOK CPT-J3420 Vitamin B12 1000mcg (Cyanocobalamin) 09:23:21 BLENDER / COOK CPT-89762 Abx/Therapy Injection 09:23:21 BLENDER / COOK CPT-85552 Urine Dip (Floor Use Only) 20:21:44 BLENDER / COOK 201 02/12/11 CPT-81021 UA Dip Auto (Floor Use Only) 10:04:39 BLENDER / COOK 2 CPT-38165 Urine Dip (Floor Use Only) 13:27:28 BLENDER / COOK 201 02/12/01 CPT-96550 Bladder Scan 13:27:28 BLENDER / COOK CPT-40356 Abd single AP View 14:30:51 BLENDER / COOK CPT-OV Office Visit 10:15:43 CDT CPT-62033 Urine Dip (Floor Use Only) 17:22:21 CDT 201 02/09/02 CPT-11469 Bladder Scan 17:22:21 CDT
--- OUTSIDE RECORDS SUMMARY | 2020-05-05 11:47 | XMS REPORT | Clinical Summary ---
Author Author Jeri Hanley Organization [email or web address] Address Unknown Phone Unavailable Allergies, Adverse Reactions, [...] Active Tesfaye Owusu Candidiasis of unspecified site Medication List Medication Instructions Start Date Stop Date Generic Name NDC Status Provider Patient Instruction DIFLUCAN 100 MG TAB 1 tablet by mouth daily FLU CONAZOLE [id number] No Longer Active Tesfaye Sherman MD Active BACTRIM DS 800-160 MG TAB 1 tab by mouth twice daily 2 TRIMETHOPRIM-SULFAMETHOXAZOLE 01242746456 No Longer Active Tesfaye Sherman MD Active BACTRIM DS 800-160 MG TAB 1 tab by mouth twice daily 2 TRIMETHOPRIM-SULFAMETHOXAZOLE 46419038151 No Longer Active Tesfaye Sherman MD Active DIFLUCAN 150 MG TAB 1 tablet by mouth daily FLU CONAZOLE 07575513400 No Longer Active Tesfaye Sherman MD Active BACTRIM DS 800-160 MG TAB 1 tab by mouth twice daily 2 TRIMETHOPRIM-SULFAMETHOXAZOLE 41918037762 No Longer Active Tesfaye Sherman MD Active ROPINIROLE HCL 0.25 MG ORAL TABS 1 TAB PO Q HS ROPINIROLE HCL 33241439954 Active Tesfaye Sherman MD Active CYMBALTA 30 MG CPEP 1 cap by mouth daily with 60mg DULOXETINE HCL 84895514878 Active Tesfaye Sherman MD Active CEFTIN 250 MG TAB 1 tablet twice daily x 7 days 11/19 CEFUROXIME AXETIL 19975322587 No Longer Active Tesfaye Sherman MD Acti ve DIFLUCAN 100 MG TABS 1 tablet by mouth every other day for 2 dos es FLUCONAZOLE 11999235949 No Longer Active Tesfaye Sherman MD Active DIFLUCAN 100 MG TAB 1 tablet by mouth daily X 3 DAYS 2 FLUCONAZOLE 96860554213 No Longer Active Rj Moss DO Active MIRTAZAPINE 15 MG ORAL TABS 1/2 tab by mouth at bedtime. MIRTAZAPINE 65978978411 No Longer Active Tesfaye Sherman MD Acti ve BACTRIM DS 800-160 MG TAB 1 tab by mouth twice daily 2 TRIMETHOPRIM-SULFAMETHOXAZOLE 58013416200 No Longer Active Tesfaye Sherman MD Active PRAMIPEXOLE DIHYDROCHLORIDE 0.125 MG ORAL TABS take 1 tablet po qhs for restless leg syndrome. PRAMIPEXOLE DIHYDROCHLORIDE 81183033956 No Longer Active Tesfaye Sherman MD Active MAGNESIUM 400 MG ORAL TABS 1 tab po daily MAGNESI UM 46073325948 Active Chelsea Barba APRN Active SUDAFED 24 HOUR 240 MG ORAL [id number] 1 tab po daily PSEUDOEPHEDRINE HCL 86697372260 Active Chelsea Barba APRN A ctive CETIRIZINE HCL 5 MG TABS Take 1 tablet by mouth daily CETIRIZINE HCL 86414343404 No Longer Active Chelsea Barba APRN Acti ve TRIMETHOPRIM 100 MG TABS 1/2 qd TRIMETHOPRIM 24362492944 No Longer Active Chelsea Barba APRN Active BACTRIM DS 800-160 MG TAB 1 tab by mouth twice daily 2 TRIMETHOPRIM-SULFAMETHOXAZOLE 61599447906 No Longer Active Tesfaye Sherman MD Active BACTRIM DS 800-160 MG TAB 1 tab by mouth twice daily X 10 DAYS 2 TRIMETHOPRIM-SULFAMETHOXAZOLE 00774420630 No Longer Active D patricia Sherman MD Active AMOXICILLIN 500 MG CAPS 1 cap by mouth three times a day AMOXICILLIN 49792919678 No Longer Active Adriana Arredondo Active MECLIZINE HCL 25 MG TAB one tab po qday prn dizziness MECLIZINE HCL 37024554061 Active Tesfaye Sherman MD Active B-12 1000 MCG ORAL LOZG 1 tab po daily CYANOCOBAL STANTON 64982197937 Active Tesfaye Sherman MD Active VITAMIN D3 2000 UNIT TABS 1 daily, for vitamin D deficiency 2014 CHOLECALCIFEROL 41453195775 No Longer Active Tesfaye Sherman MD Active TIZANIDINE HCL 2 MG TABS take 1-2 tablet by mouth ev [place] day at bedtime at 9pm PRN TIZANIDINE HCL 56916216368 Active Tesfaye Owusu Active ZITHROMAX 250 MG TAB 2 po today, then 1 po q days 2-5 AZITHROMYCIN 60939163766 No Longer Active Tesfaye Sherman MD Acti ve BACTRIM DS 800-160 MG TAB 1 tab by mouth twice daily 2 TRIMETHOPRIM-SULFAMETHOXAZOLE 27771525245 No Longer Active Tesfaye Sherman MD Active PRELIEF 340 (65-50) MG (CA-P) ORAL TABS CALCIUM GLYCEROPHOSPHATE 39876510812 Active Tesfaye Sherman MD Active [facility] NIACIN FLUSH FREE 400-100 MG CAPS 1 daily NIACIN-INOSITOL 44832710490 Active Kayla Cooper MD Active DIFLUCAN 150 MG TABS 1 qd FLUCONAZOLE 90471 152193 No Longer Active Kayla Cooper MD Active FLUTICASONE PROPIONATE 50 MCG/ACT SUSP 1 spray each nostril twice daily FLUTICASONE PROPIONATE 41331781244 Active Tesfaye armenta MD Active LOVASTATIN 20 MG TABS Take 1 tablet by mouth daily LOVASTATIN 10165217555 No Longer Active Tesfaye Sherman MD Active MELOXICAM 7.5 MG TABS 1 tablet by mouth daily M ELOXICAM 29633575380 No Longer Active Tesfaye Sherman MD Active GABAPENTIN 300 MG CAPS Take two tablets by mouth every evening GABAPENTIN 76919515212 No Longer Active Edith Burch MD Active OXYCODONE-ACETAMINOPHEN 5-325 MG TABS Take one tablet by mouth every 6 hours as needed. Max 12 tabs/day as needed OXYCODONE-ACETAMINOP HEN 36992741318 Active Tesfaye Sherman MD Active CYMBALTA 60 MG CPEP Take 1 tablet by mouth daily D ULOXETINE HCL 78950076353 Active Kayla Cooper MD Active CLONAZEPAM 0.5 MG TABS Take one tablet in the morning and 1.5 table t at 7pm CLONAZEPAM 64158418071 Active Kayla Cooper MD Active BACLOFEN 10 MG TABS Take one tablet by mouth three times a day BACLOFEN 66038783578 Active Kayla Cooper MD Active GABAPENTIN 300 MG CAPS Take two tablets by mouth every evening GABAPENTIN 300 MG CAPS 868410 GABAPENTIN Inactive MELOXICAM 7.5 MG TABS 1 tablet by mouth daily MELOXICAM 7.5 MG TABS 061105 MELOXICAM Inactive LOVASTATIN 20 MG TABS Take 1 tablet by mouth daily 201 02/12/20 LOVASTATIN 20 MG TABS 508008 LOVASTATIN Inactive DIFLUCAN 150 MG TABS 1 qd DIFLUCAN 150 MG T ABS 19760712 FLUCONAZOLE Inactive VITAMIN D3 2000 UNIT TABS 1 daily, for vitamin D deficiency 2014 VITAMIN D3 2000 UNIT TABS CHOLECALCIFEROL Inacti ve AMOXICILLIN 500 MG CAPS 1 cap by mouth three times a day AMOXICILLIN 500 MG CAPS 457202 AMOXICILLIN Inactive BACTRIM DS 800-160 MG TAB 1 tab by mouth twice daily X 10 DAYS 2 BACTRIM DS 800-160 MG TAB 610545 TRIMETHOPRIM-SULFAMETH OXAZOLE Inactive TRIMETHOPRIM 100 MG TABS 1/2 qd TRIMETHOPRI M 100 MG TABS 813304 TRIMETHOPRIM Inactive CETIRIZINE HCL 5 MG TABS Take 1 tablet by mouth daily CETIRIZINE HCL 5 MG TABS 9037716 CETIRIZINE HCL Inactive PRAMIPEXOLE DIHYDROCHLORIDE 0.125 MG ORAL TABS take 1 tablet po qhs for restless leg syndrome. PRAMIPEXOLE DIHYDROC HLORIDE 0.125 MG ORAL TABS 610597 PRAMIPEXOLE DIHYDROCHLORIDE Inactive MIRTAZAPINE 15 MG ORAL TABS 1/2 tab by mouth at bedtime. MIRTAZAPINE 15 MG ORAL TABS 227451 MIRTAZAPINE Inactive DIFLUCAN 100 MG TAB 1 tablet by mouth daily X 3 DAYS 2 DIFLUCAN 100 MG TAB 19760711 FLUCONAZOLE Inactive DIFLUCAN 100 MG TABS 1 tablet by mouth every other day for 2 dos es DIFLUCAN 100 MG TABS 19760711 FLUCONAZOLE Inactive CEFTIN 250 MG TAB 1 tablet twice daily x 7 days 11/19 CEFTIN 250 MG TAB 384387 CEFUROXIME AXETIL Inactive BACTRIM DS 800-160 MG TAB 1 tab by mouth twice daily 2 BACTRIM DS 800-160 MG TAB 19830105 TRIMETHOPRIM-SULFAMETHOXAZOLE Inac tive ZITHROMAX 250 MG TAB 2 po today, then 1 po q days 2-5 ZITHROMAX 250 MG TAB 2528817 AZITHROMYCIN Inactive BACTRIM DS 800-160 MG TAB [...] by mouth daily DIFLUCAN 100 MG TAB 379482 FLUCONAZOLE Inactive Advance Directives Directive Description Start [...] negative Lab Report: UA DIP/MANUAL - Chemistry RBC, urine, dipstick Trace Negative protein, total urine random Negative mg/dL Negative Lab Report: UA DIP/MANUAL - Urinalysis pH, urine, semiquantitative 6.0 5.0-8.5 specific gravity, urine 1.005 1.000-1.030 appearance, urine Clear Clear urine color Light yellow Colorless;Lightyellow; Straw;Yellow urobilinogen, urine, semiquantitative (dipstick) 0.2 Normal leukocyte esterase, urine, by dipstick Trace Negative nitrite, urine, semiquantitative Negative Neg ative glucose, urine, semiquantitative Negative Neg ative ketones, urine, by test strip Negative Negati ve bilirubin, urine Negative Negative Lab Report: UADIP W/MICRO, AUTO [...] mg/dL Encounters Code Encounter Date Provider Facility CPT-76355 Level 4 Est. Patient 09:14:56 CDT Tesfaye pearson MD [facility] CPT-84227 Level 4 Est. Patient 18:40:25 PORTFOLIO ACCOUNTANT Tesfaye pearson MD [facility] CPT-11748 Level 4 Est. Patient 18:13:07 PORTFOLIO ACCOUNTANT Tesfaye pearson MD [facility] CPT-89098 Level 3 Est. Patient 10:46:32 CDT Rj cotto DO [facility] CPT-49097 Level 4 Est. Patient 20:19:25 CDT Tesfaye pearson MD [facility] CPT-20785 Level 3 Est. Patient 09:07:31 CDT Tesfaye pearson MD [facility] CPT-58769 Level 4 Est. Patient 13:12:56 CDT Tesfaye pearson MD [facility]-65509 Level 4 Est. Patient 21:24:55 PORTFOLIO ACCOUNTANT Tesfaye pearson MD [facility]-46859 Level 3 Est. Patient 13:45:04 PORTFOLIO ACCOUNTANT Tesfaye pearson MD [facility] CPT-57322 Level 4 Est. Patient 13:50:45 CDT Tesfaye pearson MD [facility] CPT-15096 Level 3 Est. Patient 10:16:10 CDT Tesfaye pearson MD [facility] CPT-35792 Level 3 Est. Patient 16:36:07 PORTFOLIO ACCOUNTANT Kayla jameson MD [facility]-29671 Level 4 Est. Patient 16:00:14 PORTFOLIO ACCOUNTANT Tesfaye pearson MD [facility] CPT-74700 Level 4 Est. Patient 11:02:24 PORTFOLIO ACCOUNTANT Tesfaye pearson MD [facility] CPT-04165 Level 3 Est. Patient 20:21:43 PORTFOLIO ACCOUNTANT Kayla jameson MD [facility] CPT-83411 Level 3 Est. Patient 13:27:28 PORTFOLIO ACCOUNTANT Kayla jameson MD [facility]-37148 Level 4 Est. Patient 15:57:17 PORTFOLIO ACCOUNTANT Tesfaye pearson MD [facility] CPT-75897 Level 3 New Patient 13:25:47 CDT Tesfaye kidd MD [facility] CPT-50404 Level 3 New Patient 17:22:21 CDT Kayla angel MD [facility] Procedures Code Procedure Name Date Entry Date Standard Desc ription CPT-G0438 Initial Annual Wellness Exam 11:23:17 CD T CPT-J2930 Solu Medrol 125 mg (Methyl Prednisolone Sodium Succinate) 17:29:12 PORTFOLIO ACCOUNTANT CPT-92908 Abx/Therapy Injection 17:29:11 PORTFOLIO ACCOUNTANT CPT-J2930 Solu Medrol 125 mg (Methyl Prednisolone Sodium Succinate) 12:34:38 PORTFOLIO ACCOUNTANT CPT-J3420 Vitamin B12 1000mcg (Cyanocobalamin) 09:12:55 CDT CPT-J3420 Vitamin B12 1000mcg (Cyanocobalamin) 16:28:06 PORTFOLIO ACCOUNTANT CPT-02249 Venipuncture Draw Fee 08:39:53 CDT CPT-J3420 Vitamin B12 1000mcg (Cyanocobalamin) 08:46:22 CDT CPT-72603 Abx/Therapy Injection 08:46:22 CDT CPT-J3420 Vitamin B12 1000mcg (Cyanocobalamin) 08:41:26 CDT CPT-14061 Abx/Therapy Injection 08:41:26 CDT CPT-J3420 Vitamin B12 1000mcg (Cyanocobalamin) 08:57:15 CDT CPT-68595 Abx/Therapy Injection 08:57:15 CDT CPT-J3420 Vitamin B12 1000mcg (Cyanocobalamin) 10:59:03 CDT CPT-26744 Abx/Therapy Injection 10:59:03 CDT CPT-J3420 Vitamin B12 1000mcg (Cyanocobalamin) 15:05:39 CDT CPT-97294 Abx/Therapy Injection 15:05:39 CDT CPT-J3420 Vitamin B12 1000mcg (Cyanocobalamin) 13:50:45 CDT CPT-J3420 Vitamin B12 1000mcg (Cyanocobalamin) 08:48:55 CDT CPT-30388 Abx/Therapy Injection 08:48:55 CDT CPT-J3420 Vitamin B12 1000mcg (Cyanocobalamin) 09:14:54 CDT CPT-80842 Abx/Therapy Injection 09:14:54 CDT CPT-J3420 Vitamin B12 1000mcg (Cyanocobalamin) 09:06:06 CDT CPT-63081 Abx/Therapy Injection 09:06:06 CDT CPT-J3420 Vitamin B12 1000mcg (Cyanocobalamin) 09:49:14 CDT CPT-92398 Abx/Therapy Injection 09:49:14 CDT CPT-J3420 Vitamin B12 1000mcg (Cyanocobalamin) 09:10:30 PORTFOLIO ACCOUNTANT CPT-11454 Abx/Therapy Injection 09:10:30 PORTFOLIO ACCOUNTANT CPT-J3420 Vitamin B12 1000mcg (Cyanocobalamin) 09:11:07 PORTFOLIO ACCOUNTANT CPT-94452 Abx/Therapy Injection 09:11:07 PORTFOLIO ACCOUNTANT CPT-J3420 Vitamin B12 1000mcg (Cyanocobalamin) 09:57:03 PORTFOLIO ACCOUNTANT CPT-00247 Abx/Therapy Injection 09:57:03 PORTFOLIO ACCOUNTANT CPT-J3420 Vitamin B12 1000mcg (Cyanocobalamin) 09:23:21 PORTFOLIO ACCOUNTANT CPT-96301 Abx/Therapy Injection 09:23:21 PORTFOLIO ACCOUNTANT CPT-39438 Urine Dip (Floor Use Only) 20:21:44 PORTFOLIO ACCOUNTANT 201 4/12/11 CPT-96674 UA Dip Auto (Floor Use Only) 10:04:39 PORTFOLIO ACCOUNTANT 2 CPT-57008 Urine Dip (Floor Use Only) 13:27:28 PORTFOLIO ACCOUNTANT 201 02/12/01 CPT-07970 Bladder Scan 13:27:28 PORTFOLIO ACCOUNTANT CPT-53184 Abd single AP View 14:30:51 PORTFOLIO ACCOUNTANT CPT-OV Office Visit 10:15:43 CDT CPT-49002 Urine Dip (Floor Use Only) 17:22:21 CDT 201 02/09/02 CPT-98182 Bladder Scan 17:22:21 CDT
--- OUTSIDE RECORDS SUMMARY | 2020-05-05 11:48 | XMS REPORT | Clinical Summary ---
Author Author Talon, Jeri Wood Organization [facility] Address Unknown Phone Unavailable Allergies, Adverse [...] tab by mouth twice daily 2 TRIMETHOPRIM-SULFAMETHOXAZOLE 78043149145 Active Tesfaye Sherman MD Active BACTRIM DS 800-160 MG TAB 1 tab by mouth twice daily X 10 DAYS 2 TRIMETHOPRIM-SULFAMETHOXAZOLE 64577079970 No Longer Active Umer Sherman MD Active AMOXICILLIN 500 MG CAPS 1 cap by mouth three times a day AMOXICILLIN 27697391920 No Longer Active Adriana Arredondo Active MECLIZINE HCL 25 MG TAB one tab po qday prn dizziness MECLIZINE HCL 77021752895 Active Tesfaye Sherman MD Active B-12 1000 MCG ORAL LOZG 1 tab po daily CYANOCOBAL STANTON 41291120594 Active Tesfaye Sherman MD Active VITAMIN D3 2000 UNIT TABS 1 daily, for vitamin D deficiency 2014 CHOLECALCIFEROL 17086647790 No Longer Active Tesfaye Sherman MD Active TIZANIDINE HCL 2 MG TABS take 1-2 tablet by mouth ev at bedtime at 9pm PRN TIZANIDINE HCL 92174783270 Active Tesfaye Owusu Active ZITHROMAX 250 MG TAB 2 po today, then 1 po q days 2-5 AZITHROMYCIN 55889986772 No Longer Active Tesfaye Sherman MD Acti ve BACTRIM DS 800-160 MG TAB 1 tab by mouth twice daily 2 TRIMETHOPRIM-SULFAMETHOXAZOLE 74424907668 No Longer Active Tesfaye Sherman MD Active PRELIEF 340 (65-50) MG (CA-P) ORAL TABS CALCIUM GLYCEROPHOSPHATE 47446915656 Active Tesfaye Sherman MD Active [facility] NIACIN FLUSH FREE 400-100 MG CAPS 1 daily NIACIN-INOSITOL 85909957344 Active Kayla Cooper MD Active DIFLUCAN 150 MG TABS 1 qd FLUCONAZOLE 84139 334051 No Longer Active Kayla Cooper MD Active FLUTICASONE PROPIONATE 50 MCG/ACT SUSP 1 spray each nostril twice daily FLUTICASONE PROPIONATE 93073983752 Active Tesfaye armenta MD Active LOVASTATIN 20 MG TABS Take 1 tablet by mouth daily LOVASTATIN 72476756883 No Longer Active Tesfaye Sherman MD Active MELOXICAM 7.5 MG TABS 1 tablet by mouth daily M ELOXICAM 51883635594 No Longer Active Tesfaye Sherman MD Active GABAPENTIN 300 MG CAPS Take two tablets by mouth every evening GABAPENTIN 93417634330 No Longer Active Edith Burch MD Active TRIMETHOPRIM 100 MG TABS 1/2 qd TRIMETHOPRIM 5875949 3001 Active Kayla Cooper MD Active OXYCODONE-ACETAMINOPHEN 5-325 MG TABS Take one tablet by mouth every 6 hours as needed. Max 12 tabs/day as needed OXYCODONE-ACETAMINOP HEN 67885732415 Active Tesfaye Sherman MD Active CYMBALTA 60 MG CPEP Take 1 tablet by mouth daily D ULOXETINE HCL 09529730192 Active Kayla Cooper MD Active CLONAZEPAM 0.5 MG TABS Take one tablet in the morning and 1.5 table t at 7pm CLONAZEPAM 17297281488 Active Kayla Cooper MD Active CETIRIZINE HCL 5 MG TABS Take 1 tablet by mouth daily CETIRIZINE HCL 33781845789 Active Kayla Cooper MD Active BACLOFEN 10 MG TABS Take one tablet by mouth three times a day BACLOFEN 50985052454 Active Kayla Cooper MD Active GABAPENTIN 300 MG CAPS Take two tablets by mouth every evening GABAPENTIN 300 MG CAPS 948220 GABAPENTIN Inactive MELOXICAM 7.5 MG TABS 1 tablet by mouth daily MELOXICAM 7.5 MG TABS 228695 MELOXICAM Inactive LOVASTATIN 20 MG TABS Take 1 tablet by mouth daily 201 02/12/20 LOVASTATIN 20 MG TABS 148606 LOVASTATIN Inactive DIFLUCAN 150 MG TABS 1 qd DIFLUCAN 150 MG T ABS 938801 FLUCONAZOLE Inactive VITAMIN D3 2000 UNIT TABS 1 daily, for vitamin D deficiency 2014 VITAMIN D3 2000 UNIT TABS CHOLECALCIFEROL Inacti ve AMOXICILLIN 500 MG CAPS 1 cap by mouth three times a day AMOXICILLIN 500 MG CAPS 169382 AMOXICILLIN Inactive BACTRIM DS 800-160 MG TAB 1 tab by mouth twice daily X 10 DAYS 2 BACTRIM DS 800-160 MG TAB 610366 TRIMETHOPRIM-SULFAMETH OXAZOLE Inactive BACTRIM DS 800-160 MG TAB 1 tab by mouth twice daily 2 BACTRIM DS 800-160 MG TAB 208704 TRIMETHOPRIM-SULFAMETHOXAZOLE Inac tive ZITHROMAX 250 MG TAB 2 po today, then 1 po q days 2-5 ZITHROMAX 250 MG TAB 4028575 AZITHROMYCIN Inactive Advance Directives Directive Description Start Date PERMISSION TO SHARE Vital Signs Date Name Value Unit Range Description blood pressure, diastolic - 8462-4 77 mm[Hg] [...] <=1.005 1.000-1.030 pH, urine, semiquantitative 7.5 5.0-8.5 Encounters Code Encounter Date Provider Facility CPT-48337 Level 3 Est. Patient 13:45:04 MEASUREMENT SUPERINTENDENT Tesfaye pearson MD [facility] CPT-85446 Level 4 Est. Patient 13:50:45 CDT Tesfaye pearson MD [facility] CPT-14838 Level 3 Est. Patient 10:16:10 CDT Tesfaye pearson MD [facility]-26053 Level 3 Est. Patient 16:36:07 MEASUREMENT SUPERINTENDENT Kayla jameson MD [facility]-96590 Level 4 Est. Patient 16:00:14 MEASUREMENT SUPERINTENDENT Tesfaye pearson MD [facility]-07268 Level 4 Est. Patient 11:02:24 MEASUREMENT SUPERINTENDENT Tesfaye pearson MD [facility]-37063 Level 3 Est. Patient 20:21:43 MEASUREMENT SUPERINTENDENT Kayla jameson MD [facility]-18729 Level 3 Est. Patient 13:27:28 MEASUREMENT SUPERINTENDENT Kayla jameson MD [facility]-95584 Level 4 Est. Patient 15:57:17 MEASUREMENT SUPERINTENDENT Tesfaye pearson MD [facility] CPT-13589 Level 3 New Patient 13:25:47 CDT Tesfaye kidd MD [facility] CPT-75770 Level 3 New Patient 17:22:21 CDT Kayla angel MD [facility] Procedures Code Procedure Name Date Entry Date Standard Desc ription CPT-J2930 Solu Medrol 125 mg (Methyl Prednisolone Sodium Succinate) 17:29:12 MEASUREMENT SUPERINTENDENT CPT-92147 Abx/Therapy Injection 17:29:11 MEASUREMENT SUPERINTENDENT CPT-J2930 Solu Medrol 125 mg (Methyl Prednisolone Sodium Succinate) 12:34:38 MEASUREMENT SUPERINTENDENT CPT-J3420 Vitamin B12 1000mcg (Cyanocobalamin) 09:12:55 CDT CPT-J3420 Vitamin B12 1000mcg (Cyanocobalamin) 16:28:06 MEASUREMENT SUPERINTENDENT CPT-06567 Venipuncture Draw Fee 08:39:53 CDT CPT-J3420 Vitamin B12 1000mcg (Cyanocobalamin) 08:46:22 CDT CPT-77824 Abx/Therapy Injection 08:46:22 CDT CPT-J3420 Vitamin B12 1000mcg (Cyanocobalamin) 08:41:26 CDT CPT-09947 Abx/Therapy Injection 08:41:26 CDT CPT-J3420 Vitamin B12 1000mcg (Cyanocobalamin) 08:57:15 CDT CPT-73655 Abx/Therapy Injection 08:57:15 CDT CPT-J3420 Vitamin B12 1000mcg (Cyanocobalamin) 10:59:03 CDT CPT-97107 Abx/Therapy Injection 10:59:03 CDT CPT-J3420 Vitamin B12 1000mcg (Cyanocobalamin) 15:05:39 CDT CPT-41473 Abx/Therapy Injection 15:05:39 CDT CPT-J3420 Vitamin B12 1000mcg (Cyanocobalamin) 13:50:45 CDT CPT-J3420 Vitamin B12 1000mcg (Cyanocobalamin) 08:48:55 CDT CPT-10510 Abx/Therapy Injection 08:48:55 CDT CPT-J3420 Vitamin B12 1000mcg (Cyanocobalamin) 09:14:54 CDT CPT-12575 Abx/Therapy Injection 09:14:54 CDT CPT-J3420 Vitamin B12 1000mcg (Cyanocobalamin) 09:06:06 CDT CPT-71669 Abx/Therapy Injection 09:06:06 CDT CPT-J3420 Vitamin B12 1000mcg (Cyanocobalamin) 09:49:14 CDT CPT-87249 Abx/Therapy Injection 09:49:14 CDT CPT-J3420 Vitamin B12 1000mcg (Cyanocobalamin) 09:10:30 MEASUREMENT SUPERINTENDENT CPT-85056 Abx/Therapy Injection 09:10:30 MEASUREMENT SUPERINTENDENT CPT-J3420 Vitamin B12 1000mcg (Cyanocobalamin) 09:11:07 MEASUREMENT SUPERINTENDENT CPT-83021 Abx/Therapy Injection 09:11:07 MEASUREMENT SUPERINTENDENT CPT-J3420 Vitamin B12 1000mcg (Cyanocobalamin) 09:57:03 MEASUREMENT SUPERINTENDENT CPT-63441 Abx/Therapy Injection 09:57:03 MEASUREMENT SUPERINTENDENT CPT-J3420 Vitamin B12 1000mcg (Cyanocobalamin) 09:23:21 MEASUREMENT SUPERINTENDENT CPT-28037 Abx/Therapy Injection 09:23:21 MEASUREMENT SUPERINTENDENT CPT-72199 Urine Dip (Floor Use Only) 20:21:44 MEASUREMENT SUPERINTENDENT 201 02/12/11 CPT-49952 UA Dip Auto (Floor Use Only) 10:04:39 MEASUREMENT SUPERINTENDENT 2 CPT-31518 Urine Dip (Floor Use Only) 13:27:28 MEASUREMENT SUPERINTENDENT 201 02/12/01 CPT-15233 Bladder Scan 13:27:28 MEASUREMENT SUPERINTENDENT CPT-83826 Abd single AP View 14:30:51 MEASUREMENT SUPERINTENDENT CPT-OV Office Visit 10:15:43 CDT CPT-88463 Urine Dip (Floor Use Only) 17:22:21 CDT 201 02/09/02 CPT-36033 Bladder Scan 17:22:21 CDT
--- OUTSIDE RECORDS SUMMARY | 2020-05-05 11:48 | XMS REPORT | Clinical Summary ---
Author Author Jeri Hanley Organization [employer] Address Unknown Phone Unavailable Allergies, Adverse Reactions, Alerts Allergy Name Reaction Description Start Date Severity Status Pr ovider MIRAPEX caused dizziness and weakness Moderate Active Tesfaye Sherman MD NITROFURANTION Critical Active Tesfaye kidd MD XANAX Critical Active Kayla Shaw on SAVELLFer Critical Active Kayla Shaw on NUVIGIIsrael Critical Active Kayla Shaw on NAPROXEN Critical Active Kayla Edward son BENADRYL Critical [...] by mouth daily X 3 DAYS FLUCONAZOLE 30804439843 Active Adriana Arredondo Active BACTRIM DS 800-160 MG TAB 1 tab by mouth twice daily 2 TRIMETHOPRIM-SULFAMETHOXAZOLE 26891574457 No Longer Active Tesfaye Sherman MD Active PRAMIPEXOLE DIHYDROCHLORIDE 0.125 MG ORAL TABS take 1 tablet po qhs for restless leg syndrome. PRAMIPEXOLE DIHYDROCHLORIDE 18985828299 No Longer Active Tesfaye Sherman MD Active MAGNESIUM 400 MG ORAL TABS 1 tab po daily MAGNESI UM 78395396922 Active Chelsea Barba APRN Active SUDAFED 24 HOUR 240 MG ORAL [id number] 1 tab po daily PSEUDOEPHEDRINE HCL 53859475499 Active Chelsea Barba APRN A ctive CETIRIZINE HCL 5 MG TABS Take 1 tablet by mouth daily CETIRIZINE HCL 25869214211 No Longer Active Chelsea Barba APRN Acti ve TRIMETHOPRIM 100 MG TABS 1/2 qd TRIMETHOPRIM 83564450569 No Longer Active Chelsea Barba APRN Active MIRTAZAPINE 15 MG ORAL TABS 1/2 tab by mouth at bedtime. MIRTAZAPINE 81399560584 Active Tesfaye Sherman MD Active BACTRIM DS 800-160 MG TAB 1 tab by mouth twice daily 2 TRIMETHOPRIM-SULFAMETHOXAZOLE 24918086055 No Longer Active Tesfaye Sherman MD Active BACTRIM DS 800-160 MG TAB 1 tab by mouth twice daily X 10 DAYS 2 TRIMETHOPRIM-SULFAMETHOXAZOLE 09642232237 No Longer Active D patircia Sherman MD Active AMOXICILLIN 500 MG CAPS 1 cap by mouth three times a day AMOXICILLIN 90476874146 No Longer Active Adriana Arredondo Active MECLIZINE HCL 25 MG TAB one tab po qday prn dizziness MECLIZINE HCL 06706144200 Active Tesfaye Sherman MD Active B-12 1000 MCG ORAL LOZG 1 tab po daily CYANOCOBAL STANTON 03173327008 Active Tesfaye Sehrman MD Active VITAMIN D3 2000 UNIT TABS 1 daily, for vitamin D deficiency 2014 CHOLECALCIFEROL 30177082730 No Longer Active Tesfaye Sherman MD Active TIZANIDINE HCL 2 MG TABS take 1-2 tablet by mouth ev [place] day at bedtime at 9pm PRN TIZANIDINE HCL 17668132560 Active Tesfaye Owusu Active ZITHROMAX 250 MG TAB 2 po today, then 1 po q days 2-5 AZITHROMYCIN 43880053849 No Longer Active Tesfaye Sherman MD Acti ve BACTRIM DS 800-160 MG TAB 1 tab by mouth twice daily 2 TRIMETHOPRIM-SULFAMETHOXAZOLE 56189475260 No Longer Active Tesfaye Sherman MD Active PRELIEF 340 (65-50) MG (CA-P) ORAL TABS CALCIUM GLYCEROPHOSPHATE 92006909254 Active Tesfaye Sherman MD Active [facility] NIACIN FLUSH FREE 400-100 MG CAPS 1 daily NIACIN-INOSITOL 33904089776 Active Kayla Cooper MD Active DIFLUCAN 150 MG TABS 1 qd FLUCONAZOLE 68516 833612 No Longer Active Kayla Cooper MD Active FLUTICASONE PROPIONATE 50 MCG/ACT SUSP 1 spray each nostril twice daily FLUTICASONE PROPIONATE 12595024396 Active Tesfaye armenta MD Active LOVASTATIN 20 MG TABS Take 1 tablet by mouth daily LOVASTATIN 61036347817 No Longer Active Tesfaye Sherman MD Active MELOXICAM 7.5 MG TABS 1 tablet by mouth daily M ELOXICAM 46811485216 No Longer Active Tesfaye Sherman MD Active GABAPENTIN 300 MG CAPS Take two tablets by mouth every evening GABAPENTIN 73312497769 No Longer Active Edith Burch MD Active OXYCODONE-ACETAMINOPHEN 5-325 MG TABS Take one tablet by mouth every 6 hours as needed. Max 12 tabs/day as needed OXYCODONE-ACETAMINOP HEN 58208537581 Active Tesfaye Sherman MD Active CYMBALTA 60 MG CPEP Take 1 tablet by mouth daily D ULOXETINE HCL 13222003682 Active Kayla Cooper MD Active CLONAZEPAM 0.5 MG TABS Take one tablet in the morning and 1.5 table t at 7pm CLONAZEPAM 37535418967 Active Kayla Cooper MD Active BACLOFEN 10 MG TABS Take one tablet by mouth three times a day BACLOFEN 02479590256 Active Kayla Cooper MD Active GABAPENTIN 300 MG CAPS Take two tablets by mouth every evening GABAPENTIN 300 MG CAPS 712737 GABAPENTIN Inactive MELOXICAM 7.5 MG TABS 1 tablet by mouth daily MELOXICAM 7.5 MG TABS 715969 MELOXICAM Inactive LOVASTATIN 20 MG TABS Take 1 tablet by mouth daily 201 02/12/20 LOVASTATIN 20 MG TABS 368550 LOVASTATIN Inactive DIFLUCAN 150 MG TABS 1 qd DIFLUCAN 150 MG T ABS 911879 FLUCONAZOLE Inactive VITAMIN D3 2000 UNIT TABS 1 daily, for vitamin D deficiency 2014 VITAMIN D3 2000 UNIT TABS CHOLECALCIFEROL Inacti ve AMOXICILLIN 500 MG CAPS 1 cap by mouth three times a day AMOXICILLIN 500 MG CAPS 425020 AMOXICILLIN Inactive BACTRIM DS 800-160 MG TAB 1 tab by mouth twice daily X 10 DAYS 2 BACTRIM DS 800-160 MG TAB 065941 TRIMETHOPRIM-SULFAMETH OXAZOLE Inactive TRIMETHOPRIM 100 MG TABS 1/2 qd TRIMETHOPRI M 100 MG TABS 061954 TRIMETHOPRIM Inactive CETIRIZINE HCL 5 MG TABS Take 1 tablet by mouth daily CETIRIZINE HCL 5 MG TABS 5219362 CETIRIZINE HCL Inactive PRAMIPEXOLE DIHYDROCHLORIDE 0.125 MG ORAL TABS take 1 tablet po qhs for restless leg syndrome. PRAMIPEXOLE DIHYDROC HLORIDE 0.125 MG ORAL TABS 417375 PRAMIPEXOLE DIHYDROCHLORIDE Inactive BACTRIM DS 800-160 MG TAB 1 tab by mouth twice daily 2 BACTRIM DS 800-160 MG TAB 144902 TRIMETHOPRIM-SULFAMETHOXAZOLE Inac tive ZITHROMAX 250 MG TAB 2 po today, then 1 po q days 2-5 ZITHROMAX 250 MG TAB 8603401 AZITHROMYCIN Inactive BACTRIM DS 800-160 MG TAB 1 tab by mouth twice daily 2 BACTRIM DS 800-160 MG TAB 19830105 TRIMETHOPRIM-SULFAMETHOXAZOLE Inac tive BACTRIM DS 800-160 MG TAB 1 tab by mouth twice daily 2 BACTRIM DS 800-160 MG TAB 454252 TRIMETHOPRIM-SULFAMETHOXAZOLE Inac tive Advance Directives Directive Description [...] mg/dL Encounters Code Encounter Date Provider Facility CPT-92535 Level 3 Est. Patient 09:07:31 CDT Tesfaye pearson MD [facility] CPT-67182 Level 4 Est. Patient 13:12:56 CDT Tesfaye pearson MD [facility]-62522 Level 4 Est. Patient 21:24:55 [facility] Tesfaye pearson MD [facility]-60145 Level 3 Est. Patient 13:45:04 [facility] Tefsaye pearson MD [facility] CPT-13608 Level 4 Est. Patient 13:50:45 CDT Tesfaye pearson MD [facility] CPT-17664 Level 3 Est. Patient 10:16:10 CDT Tesfaye pearson MD [facility] CPT-51308 Level 3 Est. Patient 16:36:07 [facility] Kayla jameson MD [facility]-56763 Level 4 Est. Patient 16:00:14 [facility] Tesfaye pearson MD [facility] CPT-27828 Level 4 Est. Patient 11:02:24 [facility] Tesfaye pearson MD [facility] CPT-11685 Level 3 Est. Patient 20:21:43 [facility] Kayla jamesno MD [facility] CPT-31178 Level 3 Est. Patient 13:27:28 [facility] Kayla jameson MD [facility] CPT-92293 Level 4 Est. Patient 15:57:17 [facility] Tesfaye pearson MD [facility] CPT-76458 Level 3 New Patient 13:25:47 CDT Tesfaye kidd MD [facility] CPT-31994 Level 3 New Patient 17:22:21 CDT Kayla angel MD [facility] Procedures Code Procedure Name Date Entry Date Standard Desc ription CPT-G0438 Initial Annual Wellness Exam 11:23:17 CD T CPT-J2930 Solu Medrol 125 mg (Methyl Prednisolone Sodium Succinate) 17:29:12 [facility] CPT-95742 Abx/Therapy Injection 17:29:11 [facility] CPT-J2930 Solu Medrol 125 mg (Methyl Prednisolone Sodium Succinate) 12:34:38 [facility] CPT-J3420 Vitamin B12 1000mcg (Cyanocobalamin) 09:12:55 CDT CPT-J3420 Vitamin B12 1000mcg (Cyanocobalamin) 16:28:06 [facility] CPT-99696 Venipuncture Draw Fee 08:39:53 CDT CPT-J3420 Vitamin B12 1000mcg (Cyanocobalamin) 08:46:22 CDT CPT-72409 Abx/Therapy Injection 08:46:22 CDT CPT-J3420 Vitamin B12 1000mcg (Cyanocobalamin) 08:41:26 CDT CPT-22483 Abx/Therapy Injection 08:41:26 CDT CPT-J3420 Vitamin B12 1000mcg (Cyanocobalamin) 08:57:15 CDT CPT-43585 Abx/Therapy Injection 08:57:15 CDT CPT-J3420 Vitamin B12 1000mcg (Cyanocobalamin) 10:59:03 CDT CPT-47511 Abx/Therapy Injection 10:59:03 CDT CPT-J3420 Vitamin B12 1000mcg (Cyanocobalamin) 15:05:39 CDT CPT-02535 Abx/Therapy Injection 15:05:39 CDT CPT-J3420 Vitamin B12 1000mcg (Cyanocobalamin) 13:50:45 CDT CPT-J3420 Vitamin B12 1000mcg (Cyanocobalamin) 08:48:55 CDT CPT-01968 Abx/Therapy Injection 08:48:55 CDT CPT-J3420 Vitamin B12 1000mcg (Cyanocobalamin) 09:14:54 CDT CPT-76530 Abx/Therapy Injection 09:14:54 CDT CPT-J3420 Vitamin B12 1000mcg (Cyanocobalamin) 09:06:06 CDT CPT-81123 Abx/Therapy Injection 09:06:06 CDT CPT-J3420 Vitamin B12 1000mcg (Cyanocobalamin) 09:49:14 CDT CPT-75425 Abx/Therapy Injection 09:49:14 CDT CPT-J3420 Vitamin B12 1000mcg (Cyanocobalamin) 09:10:30 [facility] CPT-98791 Abx/Therapy Injection 09:10:30 [facility] CPT-J3420 Vitamin B12 1000mcg (Cyanocobalamin) 09:11:07 [facility] CPT-79893 Abx/Therapy Injection 09:11:07 [facility] CPT-J3420 Vitamin B12 1000mcg (Cyanocobalamin) 09:57:03 [facility] CPT-83990 Abx/Therapy Injection 09:57:03 [facility] CPT-J3420 Vitamin B12 1000mcg (Cyanocobalamin) 09:23:21 [facility] CPT-58412 Abx/Therapy Injection 09:23:21 [facility] CPT-33620 Urine Dip (Floor Use Only) 20:21:44 [facility] 201 02/12/11 CPT-69895 UA Dip Auto (Floor Use Only) 10:04:39 [facility] 2 CPT-54599 Urine Dip (Floor Use Only) 13:27:28 [facility] 201 02/12/01 CPT-88769 Bladder Scan 13:27:28 [facility] CPT-04630 Abd single AP View 14:30:51 [facility] CPT-OV Office Visit 10:15:43 CDT CPT-49692 Urine Dip (Floor Use Only) 17:22:21 CDT 201 02/09/02 CPT-53825 Bladder Scan 17:22:21 CDT
--- OUTSIDE RECORDS SUMMARY | 2020-05-05 11:48 | XMS REPORT | Clinical Summary ---
Author Author Jeri Hanley Organization [employer] Address Unknown Phone Unavailable Allergies, Adverse Reactions, [...] up to full dose 2 VENLAFAXINE HCL 75070298387 Active Chelsea Barba APRN Activ e DIFLUCAN 100 MG TAB 1 tablet by mouth daily FLU CONAZOLE 04685376233 No Longer Active Tesfaye Sherman MD Active BACTRIM DS 800-160 MG TAB 1 tab by mouth twice daily 2 TRIMETHOPRIM-SULFAMETHOXAZOLE 91157754354 No Longer Active Tesfaye Sherman MD Active BACTRIM DS 800-160 MG TAB 1 tab by mouth twice daily 2 TRIMETHOPRIM-SULFAMETHOXAZOLE 27528471895 No Longer Active Tesfaye Sherman MD Active DIFLUCAN 150 MG TAB 1 tablet by mouth daily FLU CONAZOLE 14330494702 No Longer Active Tesfaye Sherman MD Active BACTRIM DS 800-160 MG TAB 1 tab by mouth twice daily 2 TRIMETHOPRIM-SULFAMETHOXAZOLE 55157614679 No Longer Active Tesfaye Sherman MD Active ROPINIROLE HCL 0.25 MG ORAL TABS 1 TAB PO Q HS ROPINIROLE HCL 53044583287 Active Tesfaye Sherman MD Active CYMBALTA 30 MG CPEP 1 cap by mouth daily with 60mg DULOXETINE HCL 12064268038 Active Tesfaye Sherman MD Active CEFTIN 250 MG TAB 1 tablet twice daily x 7 days 11/19 CEFUROXIME AXETIL 34871247529 No Longer Active Tesfaye Sherman MD Acti ve DIFLUCAN 100 MG TABS 1 tablet by mouth every other day for 2 dos es FLUCONAZOLE 15954802446 No Longer Active Tesfaye Sherman MD Active DIFLUCAN 100 MG TAB 1 tablet by mouth daily X 3 DAYS 2 FLUCONAZOLE 59415575608 No Longer Active Rj Moss DO Active MIRTAZAPINE 15 MG ORAL TABS 1/2 tab by mouth at bedtime. MIRTAZAPINE 12178225256 No Longer Active Tesfaye Sherman MD Acti ve BACTRIM DS 800-160 MG TAB 1 tab by mouth twice daily 2 TRIMETHOPRIM-SULFAMETHOXAZOLE 95923274907 No Longer Active Tesfaye Sherman MD Active PRAMIPEXOLE DIHYDROCHLORIDE 0.125 MG ORAL TABS take 1 tablet po qhs for restless leg syndrome. PRAMIPEXOLE DIHYDROCHLORIDE 18368631731 No Longer Active Tesfaye Sherman MD Active MAGNESIUM 400 MG ORAL TABS 1 tab po daily MAGNESI UM 65177503619 Active Chelsea Barba APRN Active SUDAFED 24 HOUR 240 MG ORAL [id number] 1 tab po daily PSEUDOEPHEDRINE HCL 64016229958 Active Chelsea Barba APRN A ctive CETIRIZINE HCL 5 MG TABS Take 1 tablet by mouth daily CETIRIZINE HCL 17858516559 No Longer Active Chelsea Barba APRN Acti ve TRIMETHOPRIM 100 MG TABS 1/2 qd TRIMETHOPRIM 27201874584 No Longer Active Chelsea Barba APRN Active BACTRIM DS 800-160 MG TAB 1 tab by mouth twice daily 2 TRIMETHOPRIM-SULFAMETHOXAZOLE 76433419915 No Longer Active Tesfaye Sherman MD Active BACTRIM DS 800-160 MG TAB 1 tab by mouth twice daily X 10 DAYS 2 TRIMETHOPRIM-SULFAMETHOXAZOLE 87175835692 No Longer Active Umer Sherman MD Active AMOXICILLIN 500 MG CAPS 1 cap by mouth three times a day AMOXICILLIN 14437471032 No Longer Active Adriana Arredondo Active MECLIZINE HCL 25 MG TAB one tab po qday prn dizziness MECLIZINE HCL 32080781159 Active Tesfaye Sherman MD Active B-12 1000 MCG ORAL LOZG 1 tab po daily CYANOCOBAL STANTON 29903515124 Active Tesfaye Sherman MD Active VITAMIN D3 2000 UNIT TABS 1 daily, for vitamin D deficiency 2014 CHOLECALCIFEROL 43512329312 No Longer Active Tesfaye Sherman MD Active TIZANIDINE HCL 2 MG TABS take 1-2 tablet by mouth ev at bedtime at 9pm PRN TIZANIDINE HCL 53178540174 Active Tesfaye Owusu Active ZITHROMAX 250 MG TAB 2 po today, then 1 po q days 2-5 AZITHROMYCIN 38564498992 No Longer Active Tesfaye Sherman MD Acti ve BACTRIM DS 800-160 MG TAB 1 tab by mouth twice daily 2 TRIMETHOPRIM-SULFAMETHOXAZOLE 30196295501 No Longer Active Tesfaye Sherman MD Active PRELIEF 340 (65-50) MG (CA-P) ORAL TABS CALCIUM GLYCEROPHOSPHATE 30956978460 Active Tesfaye Sherman MD Active [facility] NIACIN FLUSH FREE 400-100 MG CAPS 1 daily NIACIN-INOSITOL 44900293952 Active Kayla Cooper MD Active DIFLUCAN 150 MG TABS 1 qd FLUCONAZOLE 01797 833167 No Longer Active Kayla Cooper MD Active FLUTICASONE PROPIONATE 50 MCG/ACT SUSP 1 spray each nostril twice daily FLUTICASONE PROPIONATE 49446937650 Active Tesfaye armenta MD Active LOVASTATIN 20 MG TABS Take 1 tablet by mouth daily LOVASTATIN 03616532257 No Longer Active Tesfaye Sherman MD Active MELOXICAM 7.5 MG TABS 1 tablet by mouth daily Gisela ELOXICAM 19226673858 No Longer Active Tesfaye Sherman MD Active GABAPENTIN 300 MG CAPS Take two tablets by mouth every evening GABAPENTIN 17768187586 No Longer Active Edith Burch MD Active OXYCODONE-ACETAMINOPHEN 5-325 MG TABS Take one tablet by mouth every 6 hours as needed. Max 12 tabs/day as needed OXYCODONE-ACETAMINOP HEN 31020509461 Active Tesfaye Sherman MD Active CYMBALTA 60 MG CPEP Take 1 tablet by mouth daily D ULOXETINE HCL 52333543976 Active Kayla Cooper MD Active CLONAZEPAM 0.5 MG TABS Take one tablet in the morning and 1.5 table t at 7pm CLONAZEPAM 76992659782 Active Kayla Cooper MD Active BACLOFEN 10 MG TABS Take one tablet by mouth three times a day BACLOFEN 49847553666 Active Kayla Cooper MD Active GABAPENTIN 300 MG CAPS Take two tablets by mouth every evening GABAPENTIN 300 MG CAPS 596168 GABAPENTIN Inactive MELOXICAM 7.5 MG TABS 1 tablet by mouth daily MELOXICAM 7.5 MG TABS 303644 MELOXICAM Inactive LOVASTATIN 20 MG TABS Take 1 tablet by mouth daily 201 02/12/20 LOVASTATIN 20 MG TABS 527773 LOVASTATIN Inactive DIFLUCAN 150 MG TABS 1 qd DIFLUCAN 150 MG T ABS 492828 FLUCONAZOLE Inactive VITAMIN D3 2000 UNIT TABS 1 daily, for vitamin D deficiency 2014 VITAMIN D3 2000 UNIT TABS CHOLECALCIFEROL Inacti ve AMOXICILLIN 500 MG CAPS 1 cap by mouth three times a day AMOXICILLIN 500 MG CAPS 684060 AMOXICILLIN Inactive BACTRIM DS 800-160 MG TAB 1 tab by mouth twice daily X 10 DAYS 2 BACTRIM DS 800-160 MG TAB 19830105 TRIMETHOPRIM-SULFAMETH OXAZOLE Inactive TRIMETHOPRIM 100 MG TABS 1/2 qd TRIMETHOPRI M 100 MG TABS 869081 TRIMETHOPRIM Inactive CETIRIZINE HCL 5 MG TABS Take 1 tablet by mouth daily CETIRIZINE HCL 5 MG TABS 5937607 CETIRIZINE HCL Inactive PRAMIPEXOLE DIHYDROCHLORIDE 0.125 MG ORAL TABS take 1 tablet po qhs for restless leg syndrome. PRAMIPEXOLE DIHYDROC HLORIDE 0.125 MG ORAL TABS 782262 PRAMIPEXOLE DIHYDROCHLORIDE Inactive MIRTAZAPINE 15 MG ORAL TABS 1/2 tab by mouth at bedtime. MIRTAZAPINE 15 MG ORAL TABS 573701 MIRTAZAPINE Inactive DIFLUCAN 100 MG TAB 1 tablet by mouth daily X 3 DAYS 2 DIFLUCAN 100 MG TAB 657987 FLUCONAZOLE Inactive DIFLUCAN 100 MG TABS 1 tablet by mouth every other day for 2 dos es DIFLUCAN 100 MG TABS 734981 FLUCONAZOLE Inactive CEFTIN 250 MG TAB 1 tablet twice daily x 7 days 11/19 CEFTIN 250 MG TAB 766962 CEFUROXIME AXETIL Inactive BACTRIM DS 800-160 MG TAB 1 tab by mouth twice daily 2 BACTRIM DS 800-160 MG TAB 19830105 TRIMETHOPRIM-SULFAMETHOXAZOLE Inac tive ZITHROMAX 250 MG TAB 2 po today, then 1 po q days 2-5 ZITHROMAX 250 MG TAB 0325680 AZITHROMYCIN Inactive BACTRIM DS 800-160 MG TAB [...] daily 2 BACTRIM DS 800-160 MG TAB 966097 TRIMETHOPRIM-SULFAMETHOXAZOLE Inac tive DIFLUCAN 100 MG TAB 1 tablet by mouth daily DIFLUCAN 100 MG TAB 619725 FLUCONAZOLE Inactive Advance Directives Directive Description Start [...] mg/dL Encounters Code Encounter Date Provider Facility CPT-84615 Level 4 Est. Patient 09:14:56 CDT Tesfaye pearson MD [facility] CPT-39701 Level 4 Est. Patient 18:40:25 [facility] Tesfaye pearson MD [facility] CPT-10091 Level 4 Est. Patient 18:13:07 [facility] Tesafye pearson MD [facility] CPT-87246 Level 3 Est. Patient 10:46:32 CDT Rj cotto DO [facility] CPT-16139 Level 4 Est. Patient 20:19:25 CDT Tesfaye pearson MD [facility] CPT-03284 Level 3 Est. Patient 09:07:31 CDT Tesfaye pearson MD [facility] CPT-38757 Level 4 Est. Patient 13:12:56 CDT Tesfaye pearson MD [facility] CPT-18419 Level 4 Est. Patient 21:24:55 [facility] Tesfaye pearson MD [facility] CPT-04245 Level 3 Est. Patient 13:45:04 [facility] Tesfaye pearson MD [facility] CPT-06251 Level 4 Est. Patient 13:50:45 CDT Tesfaye pearson MD [facility] CPT-19427 Level 3 Est. Patient 10:16:10 CDT Tesfaye pearson MD [facility] CPT-43072 Level 3 Est. Patient 16:36:07 [facility] Kayla jameson MD [facility] CPT-58575 Level 4 Est. Patient 16:00:14 [facility] Tesfaye pearson MD [facility] CPT-59739 Level 4 Est. Patient 11:02:24 [facility] Tesfaye pearson MD [facility] CPT-49771 Level 3 Est. Patient 20:21:43 [facility] Kayla jameson MD [facility] CPT-38328 Level 3 Est. Patient 13:27:28 [facility] Kayla jameson MD [facility] CPT-90080 Level 4 Est. Patient 15:57:17 [facility] Tesfaye pearson MD [facility] CPT-04017 Level 3 New Patient 13:25:47 CDT Tesfaye kidd MD [facility] CPT-26197 Level 3 New Patient 17:22:21 CDT J John angel MD [facility] Procedures Code Procedure Name Date Entry Date Standard Desc ription CPT-82232 Foot, right, comp min 3V - XRAY USE ONLY 10:38:34 CDT CPT-G0439 Subsequent Annual Wellness Exam 13:55:04 CDT CPT-G0438 Initial Annual Wellness Exam 11:23:17 CD T CPT-J2930 Solu Medrol 125 mg (Methyl Prednisolone Sodium Succinate) 17:29:12 [facility] CPT-55181 Abx/Therapy Injection 17:29:11 [facility] CPT-J2930 Solu Medrol 125 mg (Methyl Prednisolone Sodium Succinate) 12:34:38 [facility] CPT-J3420 Vitamin B12 1000mcg (Cyanocobalamin) 09:12:55 CDT CPT-J3420 Vitamin B12 1000mcg (Cyanocobalamin) 16:28:06 [facility] CPT-28138 Venipuncture Draw Fee 08:39:53 CDT CPT-J3420 Vitamin B12 1000mcg (Cyanocobalamin) 08:46:22 CDT CPT-14019 Abx/Therapy Injection 08:46:22 CDT CPT-J3420 Vitamin B12 1000mcg (Cyanocobalamin) 08:41:26 CDT CPT-10285 Abx/Therapy Injection 08:41:26 CDT CPT-J3420 Vitamin B12 1000mcg (Cyanocobalamin) 08:57:15 CDT CPT-66069 Abx/Therapy Injection 08:57:15 CDT CPT-J3420 Vitamin B12 1000mcg (Cyanocobalamin) 10:59:03 CDT CPT-26238 Abx/Therapy Injection 10:59:03 CDT CPT-J3420 Vitamin B12 1000mcg (Cyanocobalamin) 15:05:39 CDT CPT-36800 Abx/Therapy Injection 15:05:39 CDT CPT-J3420 Vitamin B12 1000mcg (Cyanocobalamin) 13:50:45 CDT CPT-J3420 Vitamin B12 1000mcg (Cyanocobalamin) 08:48:55 CDT CPT-05408 Abx/Therapy Injection 08:48:55 CDT CPT-J3420 Vitamin B12 1000mcg (Cyanocobalamin) 09:14:54 CDT CPT-39558 Abx/Therapy Injection 09:14:54 CDT CPT-J3420 Vitamin B12 1000mcg (Cyanocobalamin) 09:06:06 CDT CPT-35526 Abx/Therapy Injection 09:06:06 CDT CPT-J3420 Vitamin B12 1000mcg (Cyanocobalamin) 09:49:14 CDT CPT-23807 Abx/Therapy Injection 09:49:14 CDT CPT-J3420 Vitamin B12 1000mcg (Cyanocobalamin) 09:10:30 [facility] CPT-58254 Abx/Therapy Injection 09:10:30 [facility] CPT-J3420 Vitamin B12 1000mcg (Cyanocobalamin) 09:11:07 [facility] CPT-24042 Abx/Therapy Injection 09:11:07 [facility] CPT-J3420 Vitamin B12 1000mcg (Cyanocobalamin) 09:57:03 [facility] CPT-16905 Abx/Therapy Injection 09:57:03 [facility] CPT-J3420 Vitamin B12 1000mcg (Cyanocobalamin) 09:23:21 [facility] CPT-49268 Abx/Therapy Injection 09:23:21 [facility] CPT-41893 Urine Dip (Floor Use Only) 20:21:44 [facility] 201 02/12/11 CPT-37871 UA Dip Auto (Floor Use Only) 10:04:39 [facility] 2 CPT-45237 Urine Dip (Floor Use Only) 13:27:28 [facility] 201 02/12/01 CPT-17916 Bladder Scan 13:27:28 [facility] CPT-63024 Abd single AP View 14:30:51 [facility] CPT-OV Office Visit 10:15:43 CDT CPT-93826 Urine Dip (Floor Use Only) 17:22:21 CDT 201 02/09/02 CPT-60944 Bladder Scan 17:22:21 CDT
--- OUTSIDE RECORDS SUMMARY | 2020-05-05 11:49 | XMS REPORT | Clinical Summary ---
Author Author Talon, Jeri Wood Organization [employer] Address Unknown Phone Unavailable Allergies, Adverse Reactions, [...] lying down x 1 hour. ALENDRONATE SODIUM [id number] Active Tesfaye Sherman MD Active REPHRESH PRO-B ORAL CAPS 1 tablet daily LACTOBACI LLUS 68751409600 Active Edith Burch MD Active CYMBALTA 60 MG CPEP Take 1 tablet by mouth daily 1 DULOXETINE HCL 55313567102 No Longer Active Edith Burch MD Active CYMBALTA 30 MG CPEP 1 cap by mouth daily with 60mg 201 05/09/11 DULOXETINE HCL 57374501644 No Longer Active Edith Burch MD Activ e FISH OIL 1000 MG CPDR 1 pill by mouth daily for cholesterol 04/18 OMEGA- 3 FATTY ACIDS 06101954641 Active Rosa Jaffe LPN Acti ve RED YEAST RICE 600 MG CAPS 1 pill by mouth daily RED YEAST RICE EXTRACT 24511475166 Active Rosa Jaffe LPN Activ e VENLAFAXINE HCL 37.5 MG TABS 1/4 tab po titrating up to full dose 2 VENLAFAXINE HCL 37666411170 Active Chelsea Barba APRN Activ e DIFLUCAN 100 MG TAB 1 tablet by mouth daily FLU CONAZOLE 27180627048 No Longer Active Tesfaye Sherman MD Active BACTRIM DS 800-160 MG TAB 1 tab by mouth twice daily 2 TRIMETHOPRIM-SULFAMETHOXAZOLE 43518910538 No Longer Active Tesfaye Sherman MD Active BACTRIM DS 800-160 MG TAB 1 tab by mouth twice daily 2 TRIMETHOPRIM-SULFAMETHOXAZOLE 44697359374 No Longer Active Tesfaye Sherman MD Active DIFLUCAN 150 MG TAB 1 tablet by mouth daily FLU CONAZOLE 64298815941 No Longer Active Tesfaye Sherman MD Active BACTRIM DS 800-160 MG TAB 1 tab by mouth twice daily 2 TRIMETHOPRIM-SULFAMETHOXAZOLE 04027365938 No Longer Active Tesfaye Sherman MD Active ROPINIROLE HCL 0.25 MG ORAL TABS 1 TAB PO Q HS ROPINIROLE HCL 62852708132 Active Tesfaye Sherman MD Active CEFTIN 250 MG TAB 1 tablet twice daily x 7 days 11/19 CEFUROXIME AXETIL 91171849439 No Longer Active Tesfaye Sherman MD Acti ve DIFLUCAN 100 MG TABS 1 tablet by mouth every other day for 2 dos es FLUCONAZOLE 95439076852 No Longer Active Tesfaye Sherman MD Active DIFLUCAN 100 MG TAB 1 tablet by mouth daily X 3 DAYS 2 FLUCONAZOLE 83491274384 No Longer Active Rj Moss DO Active MIRTAZAPINE 15 MG ORAL TABS 1/2 tab by mouth at bedtime. MIRTAZAPINE 74966517190 No Longer Active Tesfaye Sherman MD Acti ve BACTRIM DS 800-160 MG TAB 1 tab by mouth twice daily 2 TRIMETHOPRIM-SULFAMETHOXAZOLE 64223833861 No Longer Active Tesfaye Sherman MD Active PRAMIPEXOLE DIHYDROCHLORIDE 0.125 MG ORAL TABS take 1 tablet po qhs for restless leg syndrome. PRAMIPEXOLE DIHYDROCHLORIDE 12441918110 No Longer Active Tesfaye Sherman MD Active MAGNESIUM 400 MG ORAL TABS 1 tab po daily MAGNESI UM 14251814415 Active Chelsea Barba APRN Active SUDAFED 24 HOUR 240 MG ORAL [id number] 1 tab po daily PSEUDOEPHEDRINE HCL 35970890958 Active Chelsea Barba APRN A ctive CETIRIZINE HCL 5 MG TABS Take 1 tablet by mouth daily CETIRIZINE HCL 94707003201 No Longer Active Chelsea Barba APRN Acti ve TRIMETHOPRIM 100 MG TABS 1/2 qd TRIMETHOPRIM 96618788049 No Longer Active Chelsea Barba APRN Active BACTRIM DS 800-160 MG TAB 1 tab by mouth twice daily 2 TRIMETHOPRIM-SULFAMETHOXAZOLE 22060895178 No Longer Active Tesfaye Sherman MD Active BACTRIM DS 800-160 MG TAB 1 tab by mouth twice daily X 10 DAYS 2 TRIMETHOPRIM-SULFAMETHOXAZOLE 06202840138 No Longer Active Umer Sherman MD Active AMOXICILLIN 500 MG CAPS 1 cap by mouth three times a day AMOXICILLIN 12383848161 No Longer Active Adriana Arredondo Active MECLIZINE HCL 25 MG TAB one tab po qday prn dizziness MECLIZINE HCL 60510930988 Active Tesfaye Sherman MD Active B-12 1000 MCG ORAL LOZG 1 tab po daily CYANOCOBAL STANTON 84024279777 Active Tesfaye Sherman MD Active VITAMIN D3 2000 UNIT TABS 1 daily, for vitamin D deficiency 2014 CHOLECALCIFEROL 03691637362 No Longer Active Tesfaye Sherman MD Active TIZANIDINE HCL 2 MG TABS take 1-2 tablet by mouth at bedtime at 9pm PRN TIZANIDINE HCL 11639045173 Active Tesfaye Owusu Active ZITHROMAX 250 MG TAB 2 po today, then 1 po q days 2-5 AZITHROMYCIN 83190265012 No Longer Active Tesfaye Sherman MD Acti ve BACTRIM DS 800-160 MG TAB 1 tab by mouth twice daily 2 TRIMETHOPRIM-SULFAMETHOXAZOLE 67081657071 No Longer Active Tesfaye Sherman MD Active PRELIEF 340 (65-50) MG (CA-P) ORAL TABS CALCIUM GLYCEROPHOSPHATE 43431423774 Active Tesfaye Sherman MD Active [facility] NIACIN FLUSH FREE 400-100 MG CAPS 1 daily NIACIN-INOSITOL 79080102591 Active Kayla Cooper MD Active DIFLUCAN 150 MG TABS 1 qd FLUCONAZOLE 22110 248176 No Longer Active Kayla Cooper MD Active FLUTICASONE PROPIONATE 50 MCG/ACT SUSP 1 spray each nostril twice daily FLUTICASONE PROPIONATE 86738855883 Active Tesfaye armenta MD Active LOVASTATIN 20 MG TABS Take 1 tablet by mouth daily LOVASTATIN 82331874864 No Longer Active Tesfaye Sherman MD Active MELOXICAM 7.5 MG TABS 1 tablet by mouth daily M ELOXICAM 61173357703 No Longer Active Tesfaye Sherman MD Active GABAPENTIN 300 MG CAPS Take two tablets by mouth every evening GABAPENTIN 33548046487 No Longer Active Edith Burch MD Active OXYCODONE-ACETAMINOPHEN 5-325 MG TABS Take one tablet by mouth every 6 hours as needed. Max 12 tabs/day as needed OXYCODONE-ACETAMINOP HEN 68581954130 Active Tesfaye Sherman MD Active CLONAZEPAM 0.5 MG TABS Take one tablet in the morning and 1.5 table t at 7pm CLONAZEPAM 65023488093 Active Kayla Cooper MD Active BACLOFEN 10 MG TABS Take one tablet by mouth three times a day BACLOFEN 32422604654 Active Kayla Cooper MD Active GABAPENTIN 300 MG CAPS Take two tablets by mouth every evening GABAPENTIN 300 MG CAPS 056766 GABAPENTIN Inactive MELOXICAM 7.5 MG TABS 1 tablet by mouth daily MELOXICAM 7.5 MG TABS 929736 MELOXICAM Inactive LOVASTATIN 20 MG TABS Take 1 tablet by mouth daily 201 02/12/20 LOVASTATIN 20 MG TABS 977643 LOVASTATIN Inactive DIFLUCAN 150 MG TABS 1 qd DIFLUCAN 150 MG T ABS 077982 FLUCONAZOLE Inactive VITAMIN D3 2000 UNIT TABS 1 daily, for vitamin D deficiency 2014 VITAMIN D3 2000 UNIT TABS CHOLECALCIFEROL Inacti ve AMOXICILLIN 500 MG CAPS 1 cap by mouth three times a day AMOXICILLIN 500 MG CAPS 001126 AMOXICILLIN Inactive BACTRIM DS 800-160 MG TAB 1 tab by mouth twice daily X 10 DAYS 2 BACTRIM DS 800-160 MG TAB 19830105 TRIMETHOPRIM-SULFAMETH OXAZOLE Inactive TRIMETHOPRIM 100 MG TABS 1/2 qd TRIMETHOPRI M 100 MG TABS 19830102 TRIMETHOPRIM Inactive CETIRIZINE HCL 5 MG TABS Take 1 tablet by mouth daily CETIRIZINE HCL 5 MG TABS 2552460 CETIRIZINE HCL Inactive PRAMIPEXOLE DIHYDROCHLORIDE 0.125 MG ORAL TABS take 1 tablet po qhs for restless leg syndrome. PRAMIPEXOLE DIHYDROC HLORIDE 0.125 MG ORAL TABS 224450 PRAMIPEXOLE DIHYDROCHLORIDE Inactive MIRTAZAPINE 15 MG ORAL TABS 1/2 tab by mouth at bedtime. MIRTAZAPINE 15 MG ORAL TABS 133928 MIRTAZAPINE Inactive DIFLUCAN 100 MG TAB 1 tablet by mouth daily X 3 DAYS 2 DIFLUCAN 100 MG TAB 988645 FLUCONAZOLE Inactive DIFLUCAN 100 MG TABS 1 tablet by mouth every other day for 2 dos es DIFLUCAN 100 MG TABS 274742 FLUCONAZOLE Inactive CEFTIN 250 MG TAB 1 tablet twice daily x 7 days 11/19 CEFTIN 250 MG TAB 433335 CEFUROXIME AXETIL Inactive CYMBALTA 30 MG CPEP 1 cap by mouth daily with 60mg 201 05/09/11 CYMBALTA 30 MG CPEP 095929 DULOXETINE HCL Inactive CYMBALTA 60 MG CPEP Take 1 tablet by mouth daily 05/13 CYMBALTA 60 MG CPEP 755960 DULOXETINE HCL Inactive BACTRIM DS 800-160 MG TAB 1 tab by mouth twice daily 2 BACTRIM DS 800-160 MG TAB 19830105 TRIMETHOPRIM-SULFAMETHOXAZOLE Inac tive ZITHROMAX 250 MG TAB 2 po today, then 1 po q days 2-5 ZITHROMAX 250 MG TAB 9228656 AZITHROMYCIN Inactive BACTRIM DS 800-160 MG TAB [...] by mouth daily DIFLUCAN 150 MG TAB 976295 FLUCONAZOLE Inactive BACTRIM DS 800-160 MG TAB 1 tab by mouth twice daily 2 BACTRIM DS 800-160 MG TAB 19830105 TRIMETHOPRIM-SULFAMETHOXAZOLE Inac tive BACTRIM DS 800-160 MG TAB 1 tab by mouth twice daily 2 BACTRIM DS 800-160 MG TAB 19830105 TRIMETHOPRIM-SULFAMETHOXAZOLE Inac tive DIFLUCAN 100 MG TAB 1 tablet by mouth daily DIFLUCAN 100 MG TAB 429094 FLUCONAZOLE Inactive Advance Directives Directive Description Start [...] ... - Chemistry sodium, serum 144 mmol/L 516-950 8905/06/14 carbon dioxide, venous blood 29.4 mmol/L 21.0-32 .0 potassium, serum 4.4 mmol/L 3.5-5.2 chloride, serum 108 mmol/L 98-107 blood glucose 100 mg/dL 65-110 urea nitrogen, blood 9 mg/dL 7-18 creatinine, serum 0.67 mg/dL 0.55-1.30 alanine aminotransferase (SGPT), serum 24 U/L 12-78 aspartate aminotransferase (SGOT), serum 15 U/L 15-37 calcium, serum 9.3 mg/dL 8.5-10.1 bilirubin, serum, total 0.50 mg/dL 0.00-1.00 cholesterol, serum 268 mg/dL 885-425 5487/06/14 triglyceride, serum, fasting 126 mg/dL 30-200 HDL [...] mg/dL Encounters Code Encounter Date Provider Facility CPT-95748 Level 4 Est. Patient 13:56:54 CDT Tesfaye pearson MD [facility] CPT-98590 Level 4 Est. Patient 13:24:25 CDT Stephanie MERCADO [facility] CPT-13461 Level 4 Est. Patient 09:14:56 CDT Tesfaye pearson MD [facility]-98095 Level 4 Est. 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-21105 Level 4 Est. Patient 18:13:07 MOBILE SALES TECHNICIAN Tesfaye pearson MD [facility]-40331 Level 3 Est. Patient 10:46:32 CDT Rj cotto DO [facility]-80094 Level 4 Est. Patient 20:19:25 CDT Tesfaye pearson MD [facility]-33160 Level 3 Est. Patient 09:07:31 CDT Tesfaye pearson MD [facility]-25365 Level 4 Est. Patient 13:12:56 CDT Tesfaye pearson MD [facility]-17428 Level 4 Est. Patient 21:24:55 MOBILE SALES TECHNICIAN Tesfaye pearson MD [facility]-24682 Level 3 Est. Patient 13:45:04 MOBILE SALES TECHNICIAN Tesfaye pearson MD [facility] CPT-77708 Level 4 Est. Patient 13:50:45 CDT Tesfaye pearson MD [facility] CPT-09958 Level 3 Est. Patient 10:16:10 CDT Tesfaye pearson MD [facility] CPT-39386 Level 3 Est. Patient 16:36:07 MOBILE SALES TECHNICIAN Kayla jameson MD [facility]-57630 Level 4 Est. Patient 16:00:14 MOBILE SALES TECHNICIAN Tesfaye pearson MD [facility]-66635 Level 4 Est. Patient 11:02:24 MOBILE SALES TECHNICIAN Tesfaye pearson MD [facility]-06619 Level 3 Est. Patient 20:21:43 MOBILE SALES TECHNICIAN Kayla jameson MD [facility]-27307 Level 3 Est. Patient 13:27:28 MOBILE SALES TECHNICIAN Kayla jameson MD [facility] CPT-20968 Level 4 Est. Patient 15:57:17 MOBILE SALES TECHNICIAN Tesfaye pearson MD [facility] CPT-60024 Level 3 New Patient 13:25:47 CDT Tesfaye kidd MD [facility] CPT-56940 Level 3 New Patient 17:22:21 CDT Kayla angel MD [facility] Procedures Code Procedure Name Date Entry Date Standard Desc ription CPT-95507 Bone Density - XRAY USE ONLY 11:43:58 CDT 2 CPT-71963 Bone Density - XRAY USE ONLY 10:05:16 CDT 2 CPT-78959 Prv Med New Pt 40-64 yrs 18:19:25 CDT 2016 CPT-66982 Foot, right, comp min 3V - XRAY USE ONLY 10:38:34 CDT CPT-G0439 Subsequent Annual Wellness Exam 13:55:04 CDT CPT-G0438 Initial Annual Wellness Exam 11:23:17 CD T CPT-J2930 Solu Medrol 125 mg (Methyl Prednisolone Sodium Succinate) 17:29:12 MOBILE SALES TECHNICIAN CPT-19669 Abx/Therapy Injection 17:29:11 MOBILE SALES TECHNICIAN CPT-J2930 Solu Medrol 125 mg (Methyl Prednisolone Sodium Succinate) 12:34:38 MOBILE SALES TECHNICIAN CPT-J3420 Vitamin B12 1000mcg (Cyanocobalamin) 09:12:55 CDT CPT-J3420 Vitamin B12 1000mcg (Cyanocobalamin) 16:28:06 MOBILE SALES TECHNICIAN CPT-29809 Venipuncture Draw Fee 08:39:53 CDT CPT-J3420 Vitamin B12 1000mcg (Cyanocobalamin) 08:46:22 CDT CPT-33578 Abx/Therapy Injection 08:46:22 CDT CPT-J3420 Vitamin B12 1000mcg (Cyanocobalamin) 08:41:26 CDT CPT-58267 Abx/Therapy Injection 08:41:26 CDT CPT-J3420 Vitamin B12 1000mcg (Cyanocobalamin) 08:57:15 CDT CPT-54840 Abx/Therapy Injection 08:57:15 CDT CPT-J3420 Vitamin B12 1000mcg (Cyanocobalamin) 10:59:03 CDT CPT-82307 Abx/Therapy Injection 10:59:03 CDT CPT-J3420 Vitamin B12 1000mcg (Cyanocobalamin) 15:05:39 CDT CPT-15800 Abx/Therapy Injection 15:05:39 CDT CPT-J3420 Vitamin B12 1000mcg (Cyanocobalamin) 13:50:45 CDT CPT-J3420 Vitamin B12 1000mcg (Cyanocobalamin) 08:48:55 CDT CPT-96194 Abx/Therapy Injection 08:48:55 CDT CPT-J3420 Vitamin B12 1000mcg (Cyanocobalamin) 09:14:54 CDT CPT-29478 Abx/Therapy Injection 09:14:54 CDT CPT-J3420 Vitamin B12 1000mcg (Cyanocobalamin) 09:06:06 CDT CPT-36151 Abx/Therapy Injection 09:06:06 CDT CPT-J3420 Vitamin B12 1000mcg (Cyanocobalamin) 09:49:14 CDT CPT-98000 Abx/Therapy Injection 09:49:14 CDT CPT-J3420 Vitamin B12 1000mcg (Cyanocobalamin) 09:10:30 MOBILE SALES TECHNICIAN CPT-16196 Abx/Therapy Injection 09:10:30 MOBILE SALES TECHNICIAN CPT-J3420 Vitamin B12 1000mcg (Cyanocobalamin) 09:11:07 MOBILE SALES TECHNICIAN CPT-32676 Abx/Therapy Injection 09:11:07 MOBILE SALES TECHNICIAN CPT-J3420 Vitamin B12 1000mcg (Cyanocobalamin) 09:57:03 MOBILE SALES TECHNICIAN CPT-03903 Abx/Therapy Injection 09:57:03 MOBILE SALES TECHNICIAN CPT-J3420 Vitamin B12 1000mcg (Cyanocobalamin) 09:23:21 MOBILE SALES TECHNICIAN CPT-43185 Abx/Therapy Injection 09:23:21 MOBILE SALES TECHNICIAN CPT-24273 Urine Dip (Floor Use Only) 20:21:44 MOBILE SALES TECHNICIAN 201 02/12/11 CPT-91921 UA Dip Auto (Floor Use Only) 10:04:39 MOBILE SALES TECHNICIAN 2 CPT-56084 Urine Dip (Floor Use Only) 13:27:28 MOBILE SALES TECHNICIAN 201 02/12/01 CPT-52761 Bladder Scan 13:27:28 MOBILE SALES TECHNICIAN CPT-12128 Abd single AP View 14:30:51 MOBILE SALES TECHNICIAN CPT-OV Office Visit 10:15:43 CDT CPT-47936 Urine Dip (Floor Use Only) 17:22:21 CDT 201 02/09/02 CPT-81187 Bladder Scan 17:22:21 CDT
--- OUTSIDE RECORDS SUMMARY | 2020-05-05 11:49 | XMS REPORT | Clinical Summary ---
Author Author Jeri Hanley Organization [employer] Address Unknown Phone Unavailable Allergies, Adverse Reactions, [...] Active Chelsea NAPOLES RN Pain in limb Medication List Medication Instructions Start Date Stop Date Generic Name NDC Status Provider Patient Instruction VENLAFAXINE HCL 37.5 MG TABS 1/4 tab po titrating up to full dose 2 VENLAFAXINE HCL 51326548864 Active Chelsea Barba MOTTLE LAY UP OPERATOR Activ e DIFLUCAN 100 MG TAB 1 tablet by mouth daily FLU CONAZOLE 85081900794 No Longer Active Tesfaye Sherman MD Active BACTRIM DS 800-160 MG TAB 1 tab by mouth twice daily 2 TRIMETHOPRIM-SULFAMETHOXAZOLE 20546848645 No Longer Active Tesfaye Sherman MD Active BACTRIM DS 800-160 MG TAB 1 tab by mouth twice daily 2 TRIMETHOPRIM-SULFAMETHOXAZOLE 98616811025 No Longer Active Tesfaye Sherman MD Active DIFLUCAN 150 MG TAB 1 tablet by mouth daily FLU CONAZOLE 05634501918 No Longer Active Tesfaye Sherman MD Active BACTRIM DS 800-160 MG TAB 1 tab by mouth twice daily 2 TRIMETHOPRIM-SULFAMETHOXAZOLE 23078568656 No Longer Active Tesfaye Sherman MD Active ROPINIROLE HCL 0.25 MG ORAL TABS 1 TAB PO Q HS ROPINIROLE HCL 15378076989 Active Tesfaye Sherman MD Active CYMBALTA 30 MG CPEP 1 cap by mouth daily with 60mg DULOXETINE HCL 84734865401 Active Tesfaye Sherman MD Active CEFTIN 250 MG TAB 1 tablet twice daily x 7 days 11/19 CEFUROXIME AXETIL 41583871636 No Longer Active Tesfaye Sherman MD Acti ve DIFLUCAN 100 MG TABS 1 tablet by mouth every other day for 2 dos es FLUCONAZOLE 93465369274 No Longer Active Tesfaye Sherman MD Active DIFLUCAN 100 MG TAB 1 tablet by mouth daily X 3 DAYS 2 FLUCONAZOLE 25586737396 No Longer Active Rj Moss DO Active MIRTAZAPINE 15 MG ORAL TABS 1/2 tab by mouth at bedtime. MIRTAZAPINE 00302856368 No Longer Active Tesfaye Sherman MD Acti ve BACTRIM DS 800-160 MG TAB 1 tab by mouth twice daily 2 TRIMETHOPRIM-SULFAMETHOXAZOLE 12886282647 No Longer Active Tesfaye Sherman MD Active PRAMIPEXOLE DIHYDROCHLORIDE 0.125 MG ORAL TABS take 1 tablet po qhs for restless leg syndrome. PRAMIPEXOLE DIHYDROCHLORIDE 46630636591 No Longer Active Tesfaye Sherman MD Active MAGNESIUM 400 MG ORAL TABS 1 tab po daily MAGNESI UM 42180481714 Active Chelsea Barba APRN Active SUDAFED 24 HOUR 240 MG ORAL [id number] 1 tab po daily PSEUDOEPHEDRINE HCL 13910986613 Active Chelsea Barba APRN A ctive CETIRIZINE HCL 5 MG TABS Take 1 tablet by mouth daily CETIRIZINE HCL 38529046423 No Longer Active Chelsea Barba APRN Acti ve TRIMETHOPRIM 100 MG TABS 1/2 qd TRIMETHOPRIM 70346934869 No Longer Active Chelsea Barba APRN Active BACTRIM DS 800-160 MG TAB 1 tab by mouth twice daily 2 TRIMETHOPRIM-SULFAMETHOXAZOLE 18343678006 No Longer Active Tesfaye Sherman MD Active BACTRIM DS 800-160 MG TAB 1 tab by mouth twice daily X 10 DAYS 2 TRIMETHOPRIM-SULFAMETHOXAZOLE 96169650967 No Longer Active Umer Sherman MD Active AMOXICILLIN 500 MG CAPS 1 cap by mouth three times a day AMOXICILLIN 13473778550 No Longer Active Adriana Arredondo Active MECLIZINE HCL 25 MG TAB one tab po qday prn dizziness MECLIZINE HCL 18507955844 Active Tesfaye Sherman MD Active B-12 1000 MCG ORAL LOZG 1 tab po daily CYANOCOBAL STANTON 16987410574 Active Tesfaye Sherman MD Active VITAMIN D3 2000 UNIT TABS 1 daily, for vitamin D deficiency 2014 CHOLECALCIFEROL 29847419101 No Longer Active Tesfaye Sherman MD Active TIZANIDINE HCL 2 MG TABS take 1-2 tablet by mouth ev at bedtime at 9pm PRN TIZANIDINE HCL 29961302644 Active Tesfaye Owusu Active ZITHROMAX 250 MG TAB 2 po today, then 1 po q days 2-5 AZITHROMYCIN 35923476433 No Longer Active Tesfaye Sherman MD Acti ve BACTRIM DS 800-160 MG TAB 1 tab by mouth twice daily 2 TRIMETHOPRIM-SULFAMETHOXAZOLE 62941414850 No Longer Active Tesfaye Sherman MD Active PRELIEF 340 (65-50) MG (CA-P) ORAL TABS CALCIUM GLYCEROPHOSPHATE 16474847798 Active Tesfaye Sherman MD Active [facility] NIACIN FLUSH FREE 400-100 MG CAPS 1 daily NIACIN-INOSITOL 33796651329 Active Kayla Cooper MD Active DIFLUCAN 150 MG TABS 1 qd FLUCONAZOLE 06157 247889 No Longer Active Kayla Cooper MD Active FLUTICASONE PROPIONATE 50 MCG/ACT SUSP 1 spray each nostril twice daily FLUTICASONE PROPIONATE 28631673000 Active Tesfaye armenta MD Active LOVASTATIN 20 MG TABS Take 1 tablet by mouth daily LOVASTATIN 34262413460 No Longer Active Tesfaye Sherman MD Active MELOXICAM 7.5 MG TABS 1 tablet by mouth daily Gisela ELOXICAM 56231951896 No Longer Active Tesfaye Sherman MD Active GABAPENTIN 300 MG CAPS Take two tablets by mouth every evening GABAPENTIN 20293254624 No Longer Active Edith Burch MD Active OXYCODONE-ACETAMINOPHEN 5-325 MG TABS Take one tablet by mouth every 6 hours as needed. Max 12 tabs/day as needed OXYCODONE-ACETAMINOP HEN 29063308999 Active Tesfaye Sherman MD Active CYMBALTA 60 MG CPEP Take 1 tablet by mouth daily D ULOXETINE HCL 88040123071 Active Kayla Cooper MD Active CLONAZEPAM 0.5 MG TABS Take one tablet in the morning and 1.5 table t at 7pm CLONAZEPAM 87920560533 Active Kayla Cooper MD Active BACLOFEN 10 MG TABS Take one tablet by mouth three times a day BACLOFEN 85425085118 Active Kayla Cooper MD Active GABAPENTIN 300 MG CAPS Take two tablets by mouth every evening GABAPENTIN 300 MG CAPS 300237 GABAPENTIN Inactive MELOXICAM 7.5 MG TABS 1 tablet by mouth daily MELOXICAM 7.5 MG TABS 409375 MELOXICAM Inactive LOVASTATIN 20 MG TABS Take 1 tablet by mouth daily 201 02/12/20 LOVASTATIN 20 MG TABS 964636 LOVASTATIN Inactive DIFLUCAN 150 MG TABS 1 qd DIFLUCAN 150 MG T ABS 121745 FLUCONAZOLE Inactive VITAMIN D3 2000 UNIT TABS 1 daily, for vitamin D deficiency 2014 VITAMIN D3 2000 UNIT TABS CHOLECALCIFEROL Inacti ve AMOXICILLIN 500 MG CAPS 1 cap by mouth three times a day AMOXICILLIN 500 MG CAPS 875904 AMOXICILLIN Inactive BACTRIM DS 800-160 MG TAB 1 tab by mouth twice daily X 10 DAYS 2 BACTRIM DS 800-160 MG TAB 19830105 TRIMETHOPRIM-SULFAMETH OXAZOLE Inactive TRIMETHOPRIM 100 MG TABS 1/2 qd TRIMETHOPRI M 100 MG TABS 895087 TRIMETHOPRIM Inactive CETIRIZINE HCL 5 MG TABS Take 1 tablet by mouth daily CETIRIZINE HCL 5 MG TABS 2849018 CETIRIZINE HCL Inactive PRAMIPEXOLE DIHYDROCHLORIDE 0.125 MG ORAL TABS take 1 tablet po qhs for restless leg syndrome. PRAMIPEXOLE DIHYDROC HLORIDE 0.125 MG ORAL TABS 419360 PRAMIPEXOLE DIHYDROCHLORIDE Inactive MIRTAZAPINE 15 MG ORAL TABS 1/2 tab by mouth at bedtime. MIRTAZAPINE 15 MG ORAL TABS 061408 MIRTAZAPINE Inactive DIFLUCAN 100 MG TAB 1 tablet by mouth daily X 3 DAYS 2 DIFLUCAN 100 MG TAB 19760711 FLUCONAZOLE Inactive DIFLUCAN 100 MG TABS 1 tablet by mouth every other day for 2 dos es DIFLUCAN 100 MG TABS 19760711 FLUCONAZOLE Inactive CEFTIN 250 MG TAB 1 tablet twice daily x 7 days 11/19 CEFTIN 250 MG TAB 458923 CEFUROXIME AXETIL Inactive BACTRIM DS 800-160 MG TAB 1 tab by mouth twice daily 2 BACTRIM DS 800-160 MG TAB 19830105 TRIMETHOPRIM-SULFAMETHOXAZOLE Inac tive ZITHROMAX 250 MG TAB 2 po today, then 1 po q days 2-5 ZITHROMAX 250 MG TAB 3497415 AZITHROMYCIN Inactive BACTRIM DS 800-160 MG TAB [...] by mouth daily DIFLUCAN 100 MG TAB 355599 FLUCONAZOLE Inactive Advance Directives Directive Description Start [...] mg/dL Encounters Code Encounter Date Provider Facility CPT-[id number] Level 4 Est. Patient 09:14:56 CDT Tesfaye pearson MD [facility] CPT-16760 Level 4 Est. Patient 18:40:25 BANKRUPTCY ASSISTANT Tesfaye pearson MD [facility] CPT-58611 Level 4 Est. Patient 18:13:07 BANKRUPTCY ASSISTANT Tesfaye pearson MD [facility] CPT-29538 Level 3 Est. Patient 10:46:32 CDT Rj cotto DO [facility] CPT-68972 Level 4 Est. Patient 20:19:25 CDT Tesfaye pearson MD [facility] CPT-06365 Level 3 Est. Patient 09:07:31 CDT Tesfaye pearson MD [facility] CPT-82211 Level 4 Est. Patient 13:12:56 CDT Tesfaye pearson MD [facility] CPT-68438 Level 4 Est. Patient 21:24:55 BANKRUPTCY ASSISTANT Tesfaye pearson MD [facility] CPT-48249 Level 3 Est. Patient 13:45:04 BANKRUPTCY ASSISTANT Tesfaye pearson MD [facility] CPT-12250 Level 4 Est. Patient 13:50:45 CDT Tesfaye pearson MD [facility] CPT-42376 Level 3 Est. Patient 10:16:10 CDT Tesfaye pearson MD [facility] CPT-23158 Level 3 Est. Patient 16:36:07 BANKRUPTCY ASSISTANT Kayla jameson MD [facility] CPT-07831 Level 4 Est. Patient 16:00:14 BANKRUPTCY ASSISTANT Tesfaye pearson MD [facility] CPT-96330 Level 4 Est. Patient 11:02:24 BANKRUPTCY ASSISTANT Tesfaye pearson MD [facility] CPT-96338 Level 3 Est. Patient 20:21:43 BANKRUPTCY ASSISTANT Kayla jameson MD [facility] CPT-01986 Level 3 Est. Patient 13:27:28 BANKRUPTCY ASSISTANT Kayla jameson MD [facility] CPT-60977 Level 4 Est. Patient 15:57:17 BANKRUPTCY ASSISTANT Tesfaye pearson MD [facility] CPT-51581 Level 3 New Patient 13:25:47 CDT Tesfaye kidd MD [facility] CPT-02343 Level 3 New Patient 17:22:21 CDT Kayla angel MD [facility] Procedures Code Procedure Name Date Entry Date Standard Desc ription CPT-96292 Foot, right, comp min 3V - XRAY USE ONLY 10:38:34 CDT CPT-G0439 Subsequent Annual Wellness Exam 13:55:04 CDT CPT-G0438 Initial Annual Wellness Exam 11:23:17 CD T CPT-J2930 Solu Medrol 125 mg (Methyl Prednisolone Sodium Succinate) 17:29:12 BANKRUPTCY ASSISTANT CPT-70147 Abx/Therapy Injection 17:29:11 BANKRUPTCY ASSISTANT CPT-J2930 Solu Medrol 125 mg (Methyl Prednisolone Sodium Succinate) 12:34:38 BANKRUPTCY ASSISTANT CPT-J3420 Vitamin B12 1000mcg (Cyanocobalamin) 09:12:55 CDT CPT-J3420 Vitamin B12 1000mcg (Cyanocobalamin) 16:28:06 BANKRUPTCY ASSISTANT CPT-71980 Venipuncture Draw Fee 08:39:53 CDT CPT-J3420 Vitamin B12 1000mcg (Cyanocobalamin) 08:46:22 CDT CPT-65088 Abx/Therapy Injection 08:46:22 CDT CPT-J3420 Vitamin B12 1000mcg (Cyanocobalamin) 08:41:26 CDT CPT-89206 Abx/Therapy Injection 08:41:26 CDT CPT-J3420 Vitamin B12 1000mcg (Cyanocobalamin) 08:57:15 CDT CPT-78425 Abx/Therapy Injection 08:57:15 CDT CPT-J3420 Vitamin B12 1000mcg (Cyanocobalamin) 10:59:03 CDT CPT-06350 Abx/Therapy Injection 10:59:03 CDT CPT-J3420 Vitamin B12 1000mcg (Cyanocobalamin) 15:05:39 CDT CPT-40012 Abx/Therapy Injection 15:05:39 CDT CPT-J3420 Vitamin B12 1000mcg (Cyanocobalamin) 13:50:45 CDT CPT-J3420 Vitamin B12 1000mcg (Cyanocobalamin) 08:48:55 CDT CPT-10851 Abx/Therapy Injection 08:48:55 CDT CPT-J3420 Vitamin B12 1000mcg (Cyanocobalamin) 09:14:54 CDT CPT-67650 Abx/Therapy Injection 09:14:54 CDT CPT-J3420 Vitamin B12 1000mcg (Cyanocobalamin) 09:06:06 CDT CPT-08248 Abx/Therapy Injection 09:06:06 CDT CPT-J3420 Vitamin B12 1000mcg (Cyanocobalamin) 09:49:14 CDT CPT-73700 Abx/Therapy Injection 09:49:14 CDT CPT-J3420 Vitamin B12 1000mcg (Cyanocobalamin) 09:10:30 BANKRUPTCY ASSISTANT CPT-17344 Abx/Therapy Injection 09:10:30 BANKRUPTCY ASSISTANT CPT-J3420 Vitamin B12 1000mcg (Cyanocobalamin) 09:11:07 BANKRUPTCY ASSISTANT CPT-58550 Abx/Therapy Injection 09:11:07 BANKRUPTCY ASSISTANT CPT-J3420 Vitamin B12 1000mcg (Cyanocobalamin) 09:57:03 BANKRUPTCY ASSISTANT CPT-74264 Abx/Therapy Injection 09:57:03 BANKRUPTCY ASSISTANT CPT-J3420 Vitamin B12 1000mcg (Cyanocobalamin) 09:23:21 BANKRUPTCY ASSISTANT CPT-91256 Abx/Therapy Injection 09:23:21 BANKRUPTCY ASSISTANT CPT-08090 Urine Dip (Floor Use Only) 20:21:44 BANKRUPTCY ASSISTANT 201 02/12/11 CPT-89159 UA Dip Auto (Floor Use Only) 10:04:39 BANKRUPTCY ASSISTANT 2 CPT-57109 Urine Dip (Floor Use Only) 13:27:28 BANKRUPTCY ASSISTANT 201 02/12/01 CPT-86212 Bladder Scan 13:27:28 BANKRUPTCY ASSISTANT CPT-92604 Abd single AP View 14:30:51 BANKRUPTCY ASSISTANT CPT-OV Office Visit 10:15:43 CDT CPT-38492 Urine Dip (Floor Use Only) 17:22:21 CDT 201 02/09/02 CPT-55579 Bladder Scan 17:22:21 CDT
--- OUTSIDE RECORDS SUMMARY | 2020-05-05 11:49 | XMS REPORT | Clinical Summary ---
Author Author Talon, Jeri Wood Organization [facility] Address Unknown Phone Unavailable Allergies, Adverse [...] daily, for vitamin D deficiency 2014 CHOLECALCIFEROL 73817482697 No Longer Active Tesfaye Sherman MD Active TIZANIDINE HCL 2 MG TABS take 1-2 tablet by mouth at bedtime at 9pm PRN TIZANIDINE HCL 53137095286 Active Tesfaye Owusu Active ZITHROMAX 250 MG TAB 2 po today, then 1 po q days 2-5 AZITHROMYCIN 10514145853 No Longer Active Tesfaye Sherman MD Acti ve BACTRIM DS 800-160 MG TAB 1 tab by mouth twice daily 2 TRIMETHOPRIM-SULFAMETHOXAZOLE 06810249457 No Longer Active Tesfaye Sherman MD Active PRELIEF 340 (65-50) MG (CA-P) ORAL TABS CALCIUM GLYCEROPHOSPHATE 38945258531 Active Tesfaye Sherman MD Active [facility] NIACIN FLUSH FREE 400-100 MG CAPS 1 daily NIACIN-INOSITOL 48122660012 Active Kayla Cooper MD Active DIFLUCAN 150 MG TABS 1 qd FLUCONAZOLE 96906 331961 No Longer Active Kayla Cooper MD Active FLUTICASONE PROPIONATE 50 MCG/ACT SUSP 1 spray each nostril twice daily FLUTICASONE PROPIONATE 30097885956 Active Tesfaye armenta MD Active LOVASTATIN 20 MG TABS Take 1 tablet by mouth daily LOVASTATIN 79284102595 No Longer Active Tesfaye Sherman MD Active MELOXICAM 7.5 MG TABS 1 tablet by mouth daily M ELOXICAM 03535543190 No Longer Active Tesfaye Sherman MD Active GABAPENTIN 300 MG CAPS Take two tablets by mouth every evening GABAPENTIN 71546871930 No Longer Active Edith Burch MD Active TRIMETHOPRIM 100 MG TABS 1/2 qd TRIMETHOPRIM 9842932 3001 Active Kayla Cooper MD Active OXYCODONE-ACETAMINOPHEN 5-325 MG TABS Take one tablet by mouth every 6 hours as needed. Max 12 tabs/day as needed OXYCODONE-ACETAMINOP HEN 45556393668 Active Tesfaye Sherman MD Active CYMBALTA 60 MG CPEP Take 1 tablet by mouth daily D ULOXETINE HCL 50436274506 Active Kayla Cooper MD Active CLONAZEPAM 0.5 MG TABS Take one tablet in the morning and 1.5 table t at 7pm CLONAZEPAM 46120080972 Active Kayla Cooper MD Active CETIRIZINE HCL 5 MG TABS Take 1 tablet by mouth daily CETIRIZINE HCL 67420328194 Active Kayla Cooper MD Active BACLOFEN 10 MG TABS Take one tablet by mouth three times a day BACLOFEN 88426316153 Active Kayla Cooper MD Active GABAPENTIN 300 MG CAPS Take two tablets by mouth every evening GABAPENTIN 300 MG CAPS 180056 GABAPENTIN Inactive MELOXICAM 7.5 MG TABS 1 tablet by mouth daily MELOXICAM 7.5 MG TABS 626930 MELOXICAM Inactive LOVASTATIN 20 MG TABS Take 1 tablet by mouth daily 201 02/12/20 LOVASTATIN 20 MG TABS 069744 LOVASTATIN Inactive DIFLUCAN 150 MG TABS 1 qd DIFLUCAN 150 MG T ABS 849711 FLUCONAZOLE Inactive VITAMIN D3 2000 UNIT TABS 1 daily, for vitamin D deficiency 2014 VITAMIN D3 2000 UNIT TABS CHOLECALCIFEROL Inacti ve BACTRIM DS 800-160 MG TAB 1 tab by mouth twice daily 2 BACTRIM DS 800-160 MG TAB TRIMETHOPRIM-SULFAMETHOXAZOLE Inac tive ZITHROMAX 250 MG TAB 2 po today, then 1 po q days 2-5 ZITHROMAX 250 MG TAB 9386859 AZITHROMYCIN Inactive Advance Directives Directive Description Start [...] Panel - Chemistry sodium, serum 138 mmol/L 264-793 0694/10/20 potassium, serum 4.5 mmol/L 3.5-5.2 chloride, serum [...] 0.90 mg/dL 0.00-1.00 cholesterol, serum 237 mg/dL 923-399 0408/10/20 triglyceride, serum, fasting 71 mg/dL 30-200 HDL [...] Panel - Chemistry cholesterol, serum 221 mg/dL 178-562 2817/01/23 triglyceride, serum, fasting 81 mg/dL 30-200 HDL [...] negative Encounters Code Encounter Date Provider Facility CPT-29256 Level 4 Est. Patient 13:50:45 CDT Tesfaye pearson MD [facility] CPT-91332 Level 3 Est. Patient 10:16:10 CDT Tesfaye pearson MD [facility] CPT-82572 Level 3 Est. Patient 16:36:07 CODY jameson MD [facility] CPT-42223 Level 4 Est. Patient 16:00:14 LEAD RAMP SERVICE MAN Tesfaye pearson MD [facility] CPT-51812 Level 4 Est. Patient 11:02:24 LEAD RAMP SERVICE MAN Tesfaye pearson MD [facility] CPT-97195 Level 3 Est. Patient 20:21:43 LEAD RAMP SERVICE MAN Kayla jameson MD [facility] CPT-32644 Level 3 Est. Patient 13:27:28 LEAD RAMP SERVICE MAN Kayla jameson MD [facility] CPT-98862 Level 4 Est. Patient 15:57:17 LEAD RAMP SERVICE MAN Tesfaye pearson MD [facility] CPT-63661 Level 3 New Patient 13:25:47 CDT Tesfaye kidd MD [facility] CPT-32417 Level 3 New Patient 17:22:21 CDT J John angel MD [facility] Procedures Code Procedure Name Date Entry Date Standard Desc ription CPT-J3420 Vitamin B12 1000mcg (Cyanocobalamin) 15:05:39 CDT CPT-96346 Abx/Therapy Injection 15:05:39 CDT CPT-J3420 Vitamin B12 1000mcg (Cyanocobalamin) 13:50:45 CDT CPT-J3420 Vitamin B12 1000mcg (Cyanocobalamin) 08:48:55 CDT CPT-26241 Abx/Therapy Injection 08:48:55 CDT CPT-J3420 Vitamin B12 1000mcg (Cyanocobalamin) 09:14:54 CDT CPT-11468 Abx/Therapy Injection 09:14:54 CDT CPT-J3420 Vitamin B12 1000mcg (Cyanocobalamin) 09:06:06 CDT CPT-20667 Abx/Therapy Injection 09:06:06 CDT CPT-J3420 Vitamin B12 1000mcg (Cyanocobalamin) 09:49:14 CDT CPT-29838 Abx/Therapy Injection 09:49:14 CDT CPT-J3420 Vitamin B12 1000mcg (Cyanocobalamin) 09:10:30 LEAD RAMP SERVICE MAN CPT-71427 Abx/Therapy Injection 09:10:30 LEAD RAMP SERVICE MAN CPT-J3420 Vitamin B12 1000mcg (Cyanocobalamin) 09:11:07 LEAD RAMP SERVICE MAN CPT-99049 Abx/Therapy Injection 09:11:07 LEAD RAMP SERVICE MAN CPT-J3420 Vitamin B12 1000mcg (Cyanocobalamin) 09:57:03 LEAD RAMP SERVICE MAN CPT-84497 Abx/Therapy Injection 09:57:03 LEAD RAMP SERVICE MAN CPT-J3420 Vitamin B12 1000mcg (Cyanocobalamin) 09:23:21 LEAD RAMP SERVICE MAN CPT-45710 Abx/Therapy Injection 09:23:21 LEAD RAMP SERVICE MAN CPT-94628 Urine Dip (Floor Use Only) 20:21:44 LEAD RAMP SERVICE MAN 201 02/12/11 CPT-25360 UA Dip Auto (Floor Use Only) 10:04:39 LEAD RAMP SERVICE MAN 2 CPT-14110 Urine Dip (Floor Use Only) 13:27:28 LEAD RAMP SERVICE MAN 201 02/12/01 CPT-29517 Bladder Scan 13:27:28 LEAD RAMP SERVICE MAN CPT-52527 Abd single AP View 14:30:51 LEAD RAMP SERVICE MAN CPT-OV Office Visit 10:15:43 CDT CPT-10199 Urine Dip (Floor Use Only) 17:22:21 CDT 201 02/09/02 CPT-33995 Bladder Scan 17:22:21 CDT
--- OUTSIDE RECORDS SUMMARY | 2020-05-05 11:50 | XMS REPORT | Clinical Summary ---
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 Pain in joint, site unspecified Tobacco abuse [...] TABLET 1 tablet by mouth daily FLUCONAZOLE 34408152582 Active Laurence Dominguez Active BACTRIM DS 800-160 MG ORAL TABLET 1 tab by mouth twice daily 201 06/09/02 TRIMETHOPRIM-SULFAMETHOXAZOLE 75016412322 Active Laurence Dominguez Active DIFLUCAN 100 MG ORAL TABLET 1 tablet by mouth daily 20 20/05/01 FLUCONAZOLE 55367756941 No Longer Active Tesfaye Sherman MD Acti ve PREDNISONE 20 MG ORAL TABLET 1 tablet by mouth twice d aily for 3 days, then 1 tablet daily for 3 days PREDNISONE 22579111109 Active Tesfaye Sherman MD Active ZITHROMAX 250 MG ORAL TABLET 2 po today, then 1 po q days 2-5 20 20/04/28 AZITHROMYCIN 80278003719 No Longer Active Tesfaye Sherman MD Active MECLIZINE HCL 25 MG ORAL TABLET one tab po qday prn dizziness 20 17/09/06 MECLIZINE HCL 08160003888 No Longer Active Tesfaye Sherman MD Active PROAIR HFA 108 (90 BASE) MCG/ACT INHALATION AEROSOL SO LUTION 1 puff every 6 hours as needed ALBUTEROL SULFATE 36103218050 No Long er Active Tesfaye Sherman MD Active OXYCODONE-ACETAMINOPHEN 5-325 MG ORAL TABLET Take one tablet by mouth every 6 hours as needed. Use sparingly OXYCODONE-ACETAMINOPHEN 53383870067 Active Tesfaye Sherman MD Active PREDNISONE 20 MG ORAL TABLET 1 tab twice daily for 3 d ay, then one daily for three days PREDNISONE 71899154140 No Longer Active Tesfaye Sherman MD Active MECLIZINE HCL 25 MG ORAL TABLET one 4 times a day as needed for dizziness MECLIZINE HCL 83847710191 Active Laurence Dominguez Active DIFLUCAN 100 MG ORAL TABLET 1 tablet by mouth daily FLUCONAZOLE 02974270695 Active Laurence Dominguez Active AMOXICILLIN 500 MG ORAL CAPSULE 1 cap by mouth three times a day AMOXICILLIN 05231364420 No Longer Active Laurence Dominguez Acti ve VENLAFAXINE HCL 75 MG ORAL TABLET 1 am 1/2 at noon VENLAFAXINE HCL 08843301949 Active Tesfaye Sherman MD Active DIFLUCAN 100 MG ORAL TABLET 1 tablet by mouth daily 20 19/08/26 FLUCONAZOLE 64835352190 No Longer Active Tesfaye Sherman MD Acti ve BACTRIM DS 800-160 MG ORAL TABLET 1 tab by mouth twice daily 201 05/10/28 TRIMETHOPRIM-SULFAMETHOXAZOLE 16032885609 No Longer Active Fer Dominguez Active FOSAMAX 70 MG ORAL TABLET 1 po qweek. Take 30min prio r to first food/drink. Avoid lying down x 1 hour. ALENDRONATE SODIUM 30472351 144 No Longer Active Laurence Dominguez Active REPHRESH PRO-B ORAL CAPSULE 1 tablet daily LACT OBACILLUS 43939881249 Active Edith Burch MD Active CYMBALTA 60 MG ORAL CAPSULE DELAYED RELEASE PARTICLES Take 1 tablet by mouth daily DULOXETINE HCL 18146894591 No Longer Active Edith Burch MD Active CYMBALTA 30 MG ORAL CAPSULE DELAYED RELEASE PARTICLES 1 cap by mouth daily with 60mg DULOXETINE HCL 07223880249 No Longer Active Jordan Burch MD Active FISH OIL 1000 MG ORAL CAPSULE DELAYED RELEASE 1 pill b y mouth daily for cholesterol OMEGA-3 FATTY ACIDS 40783519517 Active Cee Jaffe LPN Active RED YEAST RICE 600 MG ORAL CAPSULE 1 pill by mouth daily RED YEAST RICE EXTRACT 07392296149 Active KENDELL Moreno e DIFLUCAN 100 MG ORAL TABLET 1 tablet by mouth daily 19/03/05 FLUCONAZOLE 21111047790 No Longer Active Tesfaye Sherman MD Acti ve BACTRIM DS 800-160 MG ORAL TABLET 1 tab by mouth twice daily 201 05/06/28 TRIMETHOPRIM-SULFAMETHOXAZOLE 46313948891 No Longer Active Umer Sherman MD Active BACTRIM DS 800-160 MG ORAL TABLET 1 tab by mouth twice daily 201 05/04/15 TRIMETHOPRIM-SULFAMETHOXAZOLE 42753919991 No Longer Active Umer Sherman MD Active DIFLUCAN 150 MG ORAL TABLET 1 tablet by mouth daily 20 18/09/20 FLUCONAZOLE 56962942303 No Longer Active Tesfaye Sherman MD Acti ve BACTRIM DS 800-160 MG ORAL TABLET 1 tab by mouth twice daily 201 04/13/17 TRIMETHOPRIM-SULFAMETHOXAZOLE 26192202959 No Longer Active Umer Sherman MD Active ROPINIROLE HCL 0.25 MG ORAL TABLET 1 TAB PO Q HS ROPINIROLE HCL 56492965623 Active Tesfaye Sherman MD Active CEFTIN 250 MG ORAL TABLET 1 tablet twice daily x 7 days CEFUROXIME AXETIL 87664148259 No Longer Active Tesfaye Sherman MD Active DIFLUCAN 100 MG ORAL TABLET 1 tablet by mouth every other da y for 2 doses FLUCONAZOLE 94547266666 No Longer Active Tesfaye barron MD Active DIFLUCAN 100 MG ORAL TABLET 1 tablet by mouth daily X 3 DAYS 201 04/09/01 FLUCONAZOLE 61078487158 No Longer Active Rj Lyons tidragan MIRTAZAPINE 15 MG ORAL TABLET 1/2 tab by mouth at bedtime. 03/13 MIRTAZAPINE 76021742377 No Longer Active Tesfaye Sherman MD Active BACTRIM DS 800-160 MG ORAL TABLET 1 tab by mouth twice daily 201 04/09/01 TRIMETHOPRIM-SULFAMETHOXAZOLE 06984195192 No Longer Active Umer Sherman MD Active PRAMIPEXOLE DIHYDROCHLORIDE 0.125 MG ORAL TABLET take 1 tablet po qhs for restless leg syndrome. PRAMIPEXOLE DIHYDROCHLORI DE 51909353893 No Longer Active Tesfaye Sherman MD Active MAGNESIUM 400 MG ORAL TABLET 1 tab po daily MAGNRenetta SIUM 71910135755 Active Chelsea Cardenas APRN Active SUDAFED 24 HOUR 240 MG ORAL TABLET EXTENDED RELEASE 24 HOUR 1 tab po daily PSEUDOEPHEDRINE HCL 87429789844 Active Chelsea Cardenas APRN Active CETIRIZINE HCL 5 MG ORAL TABLET Take 1 tablet by mouth daily CETIRIZINE HCL 47863448127 No Longer Active Chelsea Cardenas APRN Activ e TRIMETHOPRIM 100 MG ORAL TABLET 1/2 qd TRIM ETHOPRIM 61817051709 No Longer Active Chelsea Cardenas APRN Active BACTRIM DS 800-160 MG ORAL TABLET 1 tab by mouth twice daily 201 04/04/11 TRIMETHOPRIM-SULFAMETHOXAZOLE 30667129277 No Longer Active D patricia Sherman MD Active BACTRIM DS 800-160 MG ORAL TABLET 1 tab by mouth twice daily X 10 DAYS TRIMETHOPRIM-SULFAMETHOXAZOLE 93342115424 No Longer Active Tesfaye Sherman MD Active AMOXICILLIN 500 MG ORAL CAPSULE 1 cap by mouth three times a day AMOXICILLIN 06845162385 No Longer Active Adriana Arredondo Active B-12 1000 MCG ORAL LOZENGE 1 tab po daily CYANO COBALAMIN 06620110920 Active Tesfaye Sherman MD Active VITAMIN D3 2000 UNIT ORAL TABLET 1 daily, for vitamin D deficien cy CHOLECALCIFEROL 97691727498 No Longer Active Tesfaye Sherman MD Active TIZANIDINE HCL 2 MG ORAL TABLET take 1-2 tablet [facility] day at bedtime at 9pm PRN TIZANIDINE HCL 18463640289 Active Tesfaye hewitt MD Active ZITHROMAX 250 MG ORAL TABLET 2 po today, then 1 po q days 2-5 20 15/02/10 AZITHROMYCIN 81963756444 No Longer Active Tesfaye Sherman MD Active BACTRIM DS 800-160 MG ORAL TABLET 1 tab by mouth twice daily 201 03/03/23 TRIMETHOPRIM-SULFAMETHOXAZOLE 33644279784 No Longer Active Umer Sherman MD Active PRELIEF 340 (65-50) MG (CA-P) ORAL TABLET CALCIUM GLYCEROPHOSPHATE 99642845198 Active Tesfaye Sherman MD Acti ve [facility] NIACIN FLUSH FREE 400-100 MG ORAL CAPSULE 1 daily NIACIN-INOSITOL 68652759224 Active Kayla Cooper MD Activ e DIFLUCAN 150 MG ORAL TABLET 1 qd FLUCONAZOL E 61638161512 No Longer Active Kayla Cooper MD Active FLUTICASONE PROPIONATE 50 MCG/ACT NASAL SUSPENSION 1 spray each nostril twice daily FLUTICASONE PROPIONATE 84026550438 Active Umer Sherman MD Active LOVASTATIN 20 MG ORAL TABLET Take 1 tablet by mouth daily LOVASTATIN 01176438659 No Longer Active Tesfaye Sherman MD Acti ve MELOXICAM 7.5 MG ORAL TABLET 1 tablet by mouth daily 2 MELOXICAM 27518012805 No Longer Active Tesfaye Sherman MD Acti ve GABAPENTIN 300 MG ORAL CAPSULE Take two tablets by mouth every e vening GABAPENTIN 12448682352 No Longer Active Edith Burch MD A ctive CLONAZEPAM 0.5 MG ORAL TABLET Take one tablet in the m orning and 1.5 tablet at 7pm CLONAZEPAM 05530670269 Active Kayla Cooper MD Active BACLOFEN 10 MG ORAL TABLET Take one tablet by mouth three times a d ay BACLOFEN 82323238578 Active Kayla Cooper MD Active GABAPENTIN 300 MG ORAL CAPSULE Take two tablets by mouth every e vening GABAPENTIN 300 MG ORAL CAPSULE 704011 GABAPENTIN I nactive MELOXICAM 7.5 MG ORAL TABLET 1 tablet by mouth daily 2 MELOXICAM 7.5 MG ORAL TABLET 730020 MELOXICAM Inactive LOVASTATIN 20 MG ORAL TABLET Take 1 tablet by mouth daily LOVASTATIN 20 MG ORAL TABLET 295388 LOVASTATIN Inactive DIFLUCAN 150 MG ORAL TABLET 1 qd DIFLUCAN 150 MG ORAL TABLET 117559 FLUCONAZOLE Inactive VITAMIN D3 2000 UNIT ORAL TABLET 1 daily, for vitamin D deficien cy VITAMIN D3 2000 UNIT ORAL TABLET CHOLECALCIFEROL Inactive AMOXICILLIN 500 MG ORAL CAPSULE 1 cap by mouth three times a day AMOXICILLIN 500 MG ORAL CAPSULE 378356 AMOXICILLIN Inactive BACTRIM DS 800-160 MG ORAL TABLET 1 tab by mouth twice daily X 10 DAYS BACTRIM DS 800-160 MG ORAL TABLET 097886 TRIMETHOPRIM-SULFAMETHOXAZOLE Inactive TRIMETHOPRIM 100 MG ORAL TABLET 1/2 qd 7 TRIMETHOPRIM 100 MG ORAL TABLET 527063 TRIMETHOPRIM Inactive CETIRIZINE HCL 5 MG ORAL TABLET Take 1 tablet by mouth daily CETIRIZINE HCL 5 MG ORAL TABLET 0752328 CETIRIZINE HCL Inactive PRAMIPEXOLE DIHYDROCHLORIDE 0.125 MG ORAL TABLET take 1 tablet po qhs for restless leg syndrome. PRAMIPEXOLE DIHYD ROCHLORIDE 0.125 MG ORAL TABLET 413586 PRAMIPEXOLE DIHYDROCHLORIDE Inactive MIRTAZAPINE 15 MG ORAL TABLET 1/2 tab by mouth at bedtime. 03/13 MIRTAZAPINE 15 MG ORAL TABLET 442638 MIRTAZAPINE In active DIFLUCAN 100 MG ORAL TABLET 1 tablet by mouth daily X 3 DAYS 201 04/09/01 DIFLUCAN 100 MG ORAL TABLET 001109 FLUCONAZOLE Inac tive DIFLUCAN 100 MG ORAL TABLET 1 tablet by mouth every other da y for 2 doses DIFLUCAN 100 MG ORAL TABLET 587641 FLUCONAZOLE Inactive CEFTIN 250 MG ORAL TABLET 1 tablet twice daily x 7 days CEFTIN 250 MG ORAL TABLET CEFUROXIME AXETIL Inactive CYMBALTA 30 MG ORAL CAPSULE DELAYED RELEASE PARTICLES 1 cap by mouth daily with 60mg CYMBALTA 30 MG ORAL CAPSULE DELAYED RELEASE PARTICLES 382541 DULOXETINE HCL Inactive CYMBALTA 60 MG ORAL CAPSULE DELAYED RELEASE PARTICLES Take 1 tablet by mouth daily CYMBALTA 60 MG ORAL CAPSULE DELAYED RELEA SE PARTICLES 211238 DULOXETINE HCL Inactive FOSAMAX 70 MG ORAL TABLET 1 po qweek. Take 30min prio r to first food/drink. Avoid lying down x 1 hour. FOSAMAX 70 MG ORAL TA BLET 575208 ALENDRONATE SODIUM Inactive DIFLUCAN 100 MG ORAL TABLET 1 tablet by mouth daily 19/08/26 DIFLUCAN 100 MG ORAL TABLET 500196 FLUCONAZOLE Inactive PREDNISONE 20 MG ORAL TABLET 1 tab twice daily for 3 d ay, then one daily for three days PREDNISONE 20 MG ORAL TABLET 694981 PREDNIS ONE Inactive PROAIR HFA 108 (90 BASE) MCG/ACT INHALATION AEROSOL SO LUTION 1 puff every 6 hours as needed PROAIR HFA 108 (90 B ASE) MCG/ACT INHALATION AEROSOL SOLUTION ALBUTEROL SULFATE Inactive MECLIZINE HCL 25 MG ORAL TABLET one tab po qday prn dizziness 20 17/09/06 MECLIZINE HCL 25 MG ORAL TABLET 765422 MECLIZINE HCL Inactive BACTRIM DS 800-160 MG ORAL TABLET 1 tab by mouth twice daily 201 03/03/23 BACTRIM DS 800-160 MG ORAL TABLET 027422 TRIMETHOPRIM-SULFAMETHOXAZOLE Inactive ZITHROMAX 250 MG ORAL TABLET 2 po today, then 1 po q days 2-5 20 15/02/10 ZITHROMAX 250 MG ORAL TABLET 820169 AZITHROMYCIN [place] ctive BACTRIM DS 800-160 MG ORAL TABLET [...] TABLET 1 tablet by mouth daily 19/03/05 DIFLUCAN 100 MG ORAL TABLET 506393 FLUCONAZOLE Inactive BACTRIM DS 800-160 MG ORAL TABLET 1 tab by mouth twice daily 201 05/10/28 BACTRIM DS 800-160 MG ORAL TABLET 19830105 TRIMETHOPRIM-SULFAMETHOXAZOLE Inactive AMOXICILLIN 500 MG ORAL CAPSULE 1 cap by mouth three times a day AMOXICILLIN 500 MG ORAL CAPSULE 678077 AMOXICILLIN Inactive ZITHROMAX 250 MG ORAL TABLET 2 po today, then 1 po q days 2-5 20 20/04/28 ZITHROMAX 250 MG ORAL TABLET 505664 AZITHROMYCIN [place] ctive DIFLUCAN 100 MG ORAL TABLET 1 tablet by mouth daily 20/05/01 DIFLUCAN 100 MG ORAL TABLET 449125 FLUCONAZOLE Inactive Advance Directives Directive Description Start Date PERMISSION TO SHARE DISCUSSED WITH PATIENT -- NO DECISION MADE DURABLE POWER OF FUNDRAISING SALE REPRESENTATIVE FOR HEALTHCARE DISCUSED WITH PATIENT -- [...] sium - Chemistry sodium, serum 141 mmol/L 198-554 1317/01/26 carbon dioxide, venous blood 29.5 mmol/L 21.0-32 [...] 150 mg/dL cholesterol, target level 200 mg/dL HDL cholesterol, serum, target level 40 mg/dL triglyceride, target level 150 mg/dL cholesterol, target level 200 mg/dL Office Visit: 3 month fu - Basic LDL target level 160 mg/dL Office Visit: 3 month fu - Chemistry HDL cholesterol, serum, target level 40 mg/dL triglyceride, target level 150 mg/dL cholesterol, target level 200 mg/dL Encounters Code Encounter Date Provider Facility CPT-49377 [id number] Vst-Est Level III 09:40:56 CDT Tesfaye Sherman MD [facility] CPT-89310 Level 4 Est. Patient 22:18:12 CDT Tesfaye pearson MD [facility] CPT-95496 Level 4 Est. Patient 14:44:33 IMPLANT POLISHER Tesfaye pearson MD [facility] CPT-33063 Level 4 Est. Patient 13:55:29 IMPLANT POLISHER Tesfaye pearson MD [facility] CPT-55361 Level 4 Est. Patient 17:07:34 IMPLANT POLISHER Tesfaye pearson MD [facility] CPT-60809 Level 4 Est. Patient 13:56:54 CDT Tesfaye pearson MD [facility] CPT-02406 Level 4 Est. Patient 13:24:25 CDT Chelsea sanz APRN [facility] CPT-73545 Level 4 Est. Patient 09:14:56 CDT Tesfaye pearson MD [facility] CPT-36329 Level 4 Est. Patient 18:40:25 IMPLANT POLISHER Tesfaye pearson MD -[id number] Level 4 Est. Patient 18:13:07 IMPLANT POLISHER Tesfaye pearson MD [facility] CPT-92829 Level 3 Est. Patient 10:46:32 CDT Rj cotto DO [facility] CPT-55815 Level 4 Est. Patient 20:19:25 CDT Tesfaye pearson MD [facility] CPT-10600 Level 3 Est. Patient 09:07:31 CDT Tesfaye pearson MD [facility] CPT-61782 Level 4 Est. Patient 13:12:56 CDT Tesfaye pearson MD [facility] CPT-79383 Level 4 Est. Patient 21:24:55 IMPLANT POLISHER Tesfaye pearson MD [facility] CPT-69946 Level 3 Est. Patient 13:45:04 IMPLANT POLISHER Tesfaye pearson MD [facility] CPT-00594 Level 4 Est. Patient 13:50:45 CDT Tesfaye pearson MD [facility] CPT-11620 Level 3 Est. Patient 10:16:10 CDT Tesfaye pearson MD [facility] CPT-06461 Level 3 Est. Patient 16:36:07 IMPLANT POLISHER Kayla jameson MD -[id number] Level 4 Est. Patient 16:00:14 IMPLANT POLISHER Tesfaye pearson MD [facility] CPT-23384 Level 4 Est. Patient 11:02:24 IMPLANT POLISHER Tesfaye pearson MD [facility] CPT-35690 Level 3 Est. Patient 20:21:43 IMPLANT POLISHER Kayla jameson MD [facility] CPT-08620 Level 3 Est. Patient 13:27:28 IMPLANT POLISHER Kayla jameson MD [facility] CPT-29489 Level 4 Est. Patient 15:57:17 IMPLANT POLISHER Tesfaye pearson MD [facility] CPT-27119 Level 3 New Patient 13:25:47 CDT Tesfaye kidd MD [facility] CPT-57185 Level 3 New Patient 17:22:21 CDT J John angel [facility] Procedures Code Procedure Name Date Entry Date Standard Desc ription CPT-G0439 Subsequent Annual Wellness Exam 22:18:11 CDT CPT-54517 Bone Density - XRAY USE ONLY 11:43:58 CDT 2 CPT-00674 Bone Density - XRAY USE ONLY 10:05:16 CDT 2 CPT-43046 Prv Med New Pt 40-64 yrs 18:19:25 CDT 2016 CPT-77688 Foot, right, comp min 3V - XRAY USE ONLY 10:38:34 CDT CPT-G0439 Subsequent Annual Wellness Exam 13:55:04 CDT CPT-G0438 Initial Annual Wellness Exam 11:23:17 CD T CPT-J2930 Solu Medrol 125 mg (Methyl Prednisolone Sodium Succinate) 17:29:12 IMPLANT POLISHER CPT-69812 Abx/Therapy Injection 17:29:11 IMPLANT POLISHER CPT-J2930 Solu Medrol 125 mg (Methyl Prednisolone Sodium Succinate) 12:34:38 IMPLANT POLISHER CPT-J3420 Vitamin B12 1000mcg (Cyanocobalamin) 09:12:55 CDT CPT-J3420 Vitamin B12 1000mcg (Cyanocobalamin) 16:28:06 IMPLANT POLISHER CPT-22285 Venipuncture Draw Fee 08:39:53 CDT CPT-J3420 Vitamin B12 1000mcg (Cyanocobalamin) 08:46:22 CDT CPT-34062 Abx/Therapy Injection 08:46:22 CDT CPT-J3420 Vitamin B12 1000mcg (Cyanocobalamin) 08:41:26 CDT CPT-00525 Abx/Therapy Injection 08:41:26 CDT CPT-J3420 Vitamin B12 1000mcg (Cyanocobalamin) 08:57:15 CDT CPT-30507 Abx/Therapy Injection 08:57:15 CDT CPT-J3420 Vitamin B12 1000mcg (Cyanocobalamin) 10:59:03 CDT CPT-31755 Abx/Therapy Injection 10:59:03 CDT CPT-J3420 Vitamin B12 1000mcg (Cyanocobalamin) 15:05:39 CDT CPT-14573 Abx/Therapy Injection 15:05:39 CDT CPT-J3420 Vitamin B12 1000mcg (Cyanocobalamin) 13:50:45 CDT CPT-J3420 Vitamin B12 1000mcg (Cyanocobalamin) 08:48:55 CDT CPT-79913 Abx/Therapy Injection 08:48:55 CDT CPT-J3420 Vitamin B12 1000mcg (Cyanocobalamin) 09:14:54 CDT CPT-84148 Abx/Therapy Injection 09:14:54 CDT CPT-J3420 Vitamin B12 1000mcg (Cyanocobalamin) 09:06:06 CDT CPT-83389 Abx/Therapy Injection 09:06:06 CDT CPT-J3420 Vitamin B12 1000mcg (Cyanocobalamin) 09:49:14 CDT CPT-89249 Abx/Therapy Injection 09:49:14 CDT CPT-J3420 Vitamin B12 1000mcg (Cyanocobalamin) 09:10:30 IMPLANT POLISHER CPT-72041 Abx/Therapy Injection 09:10:30 IMPLANT POLISHER CPT-J3420 Vitamin B12 1000mcg (Cyanocobalamin) 09:11:07 IMPLANT POLISHER CPT-40585 Abx/Therapy Injection 09:11:07 IMPLANT POLISHER CPT-J3420 Vitamin B12 1000mcg (Cyanocobalamin) 09:57:03 IMPLANT POLISHER CPT-56304 Abx/Therapy Injection 09:57:03 IMPLANT POLISHER CPT-J3420 Vitamin B12 1000mcg (Cyanocobalamin) 09:23:21 IMPLANT POLISHER CPT-95454 Abx/Therapy Injection 09:23:21 IMPLANT POLISHER CPT-20331 Urine Dip (Floor Use Only) 20:21:44 IMPLANT POLISHER 201 02/12/11 CPT-97441 UA Dip Auto (Floor Use Only) 10:04:39 IMPLANT POLISHER 2 CPT-40002 Urine Dip (Floor Use Only) 13:27:28 IMPLANT POLISHER 201 02/12/01 CPT-98244 Bladder Scan 13:27:28 IMPLANT POLISHER CPT-41114 Abd single AP View 14:30:51 IMPLANT POLISHER CPT-OV Office Visit 10:15:43 CDT CPT-98332 Urine Dip (Floor Use Only) 17:22:21 CDT 201 02/09/02 CPT-26633 Bladder Scan 17:22:21 CDT
--- OUTSIDE RECORDS SUMMARY | 2020-05-05 11:50 | XMS REPORT | Clinical Summary ---
Author Author Jeri Hanley Organization [employer] Address Unknown Phone Unavailable Allergies, Adverse [...] 1 tablet by mouth daily FLU CONAZOLE [id number] No Longer Active Tesfaye Sherman MD Active BACTRIM DS 800-160 MG TAB 1 tab by mouth twice daily 2 TRIMETHOPRIM-SULFAMETHOXAZOLE 29742018228 No Longer Active Tesfaye Sherman MD Active BACTRIM DS 800-160 MG TAB 1 tab by mouth twice daily 2 TRIMETHOPRIM-SULFAMETHOXAZOLE 85406061482 No Longer Active Tesfaye Sherman MD Active DIFLUCAN 150 MG TAB 1 tablet by mouth daily FLU CONAZOLE 62789826677 No Longer Active Tesfaye Sherman MD Active BACTRIM DS 800-160 MG TAB 1 tab by mouth twice daily 2 TRIMETHOPRIM-SULFAMETHOXAZOLE 58069712220 No Longer Active Tesfaye Sherman MD Active ROPINIROLE HCL 0.25 MG ORAL TABS 1 TAB PO Q HS ROPINIROLE HCL 21839793239 Active Tesfaye Sherman MD Active CYMBALTA 30 MG CPEP 1 cap by mouth daily with 60mg DULOXETINE HCL 14716992848 Active Tesfaye Sherman MD Active CEFTIN 250 MG TAB 1 tablet twice daily x 7 days 11/19 CEFUROXIME AXETIL 51093060112 No Longer Active Tesfaye Sherman MD Acti ve DIFLUCAN 100 MG TABS 1 tablet by mouth every other day for 2 dos es FLUCONAZOLE 16045460177 No Longer Active Tesfaye Sherman MD Active DIFLUCAN 100 MG TAB 1 tablet by mouth daily X 3 DAYS 2 FLUCONAZOLE 76780539482 No Longer Active Rj Moss DO Active MIRTAZAPINE 15 MG ORAL TABS 1/2 tab by mouth at bedtime. MIRTAZAPINE 33567917757 No Longer Active Tesfaye Sherman MD Acti ve BACTRIM DS 800-160 MG TAB 1 tab by mouth twice daily 2 TRIMETHOPRIM-SULFAMETHOXAZOLE 87936991171 No Longer Active Tesfaye Sherman MD Active PRAMIPEXOLE DIHYDROCHLORIDE 0.125 MG ORAL TABS take 1 tablet po qhs for restless leg syndrome. PRAMIPEXOLE DIHYDROCHLORIDE 14354701520 No Longer Active Tesfaye Sherman MD Active MAGNESIUM 400 MG ORAL TABS 1 tab po daily MAGNESI UM 66923888965 Active Chelsea Barba APRN Active SUDAFED 24 HOUR 240 MG ORAL CC43Y-VCL 1 tab po daily PSEUDOEPHEDRINE HCL 91440883740 Active Chelsea Barba APRN A ctive CETIRIZINE HCL 5 MG TABS Take 1 tablet by mouth daily CETIRIZINE HCL 13717864442 No Longer Active Chelsea Barba APRN Acti ve TRIMETHOPRIM 100 MG TABS 1/2 qd TRIMETHOPRIM 69231678467 No Longer Active Chelsea Barba APRN Active BACTRIM DS 800-160 MG TAB 1 tab by mouth twice daily 2 TRIMETHOPRIM-SULFAMETHOXAZOLE 87716699377 No Longer Active Tesfaye Sherman MD Active BACTRIM DS 800-160 MG TAB 1 tab by mouth twice daily X 10 DAYS 2 TRIMETHOPRIM-SULFAMETHOXAZOLE 00690331775 No Longer Active Umer Sherman MD Active AMOXICILLIN 500 MG CAPS 1 cap by mouth three times a day AMOXICILLIN 05203615636 No Longer Active Adriana Arredondo Active MECLIZINE HCL 25 MG TAB one tab po qday prn dizziness MECLIZINE HCL 13595578194 Active Tesfaye Sherman MD Active B-12 1000 MCG ORAL LOZG 1 tab po daily CYANOCOBAL STANTON 58930843803 Active Tesfaye Sherman MD Active VITAMIN D3 2000 UNIT TABS 1 daily, for vitamin D deficiency 2014 CHOLECALCIFEROL 31095162764 No Longer Active Tesfaye Sherman MD Active TIZANIDINE HCL 2 MG TABS take 1-2 tablet by mouth at bedtime at 9pm PRN TIZANIDINE HCL 81531177174 Active Tesfaye Higgins D Active ZITHROMAX 250 MG TAB 2 po today, then 1 po q days 2-5 AZITHROMYCIN 61119845386 No Longer Active Tesfaye Sherman MD Acti ve BACTRIM DS 800-160 MG TAB 1 tab by mouth twice daily 2 TRIMETHOPRIM-SULFAMETHOXAZOLE 50697214300 No Longer Active Tesfaye Sherman MD Active PRELIEF 340 (65-50) MG (CA-P) ORAL TABS CALCIUM GLYCEROPHOSPHATE 29560049311 Active Tesfaye Sherman MD Active [facility] NIACIN FLUSH FREE 400-100 MG CAPS 1 daily NIACIN-INOSITOL 52709117993 Active Kayla Cooper MD Active DIFLUCAN 150 MG TABS 1 qd FLUCONAZOLE 27006 955036 No Longer Active Kayla Cooper MD Active FLUTICASONE PROPIONATE 50 MCG/ACT SUSP 1 spray each nostril twice daily FLUTICASONE PROPIONATE 03953041952 Active Tesfaye armenta MD Active LOVASTATIN 20 MG TABS Take 1 tablet by mouth daily LOVASTATIN 72689718984 No Longer Active Tesfaye Sherman MD Active MELOXICAM 7.5 MG TABS 1 tablet by mouth daily M ELOXICAM 23615987480 No Longer Active Tesfaye Sherman MD Active GABAPENTIN 300 MG CAPS Take two tablets by mouth every evening GABAPENTIN 05653887976 No Longer Active Edith Burch MD Active OXYCODONE-ACETAMINOPHEN 5-325 MG TABS Take one tablet by mouth every 6 hours as needed. Max 12 tabs/day as needed OXYCODONE-ACETAMINOP HEN 19459294533 Active Tesfaye Sherman MD Active CYMBALTA 60 MG CPEP Take 1 tablet by mouth daily D ULOXETINE HCL 83231809648 Active Kayla Cooper MD Active CLONAZEPAM 0.5 MG TABS Take one tablet in the morning and 1.5 table t at 7pm CLONAZEPAM 01470673493 Active Kayla Cooper MD Active BACLOFEN 10 MG TABS Take one tablet by mouth three times a day BACLOFEN 42019235438 Active J John Cooper MD Active GABAPENTIN 300 MG CAPS Take two tablets by mouth every evening GABAPENTIN 300 MG CAPS 101780 GABAPENTIN Inactive MELOXICAM 7.5 MG TABS 1 tablet by mouth daily MELOXICAM 7.5 MG TABS 468092 MELOXICAM Inactive LOVASTATIN 20 MG TABS Take 1 tablet by mouth daily 201 02/12/20 LOVASTATIN 20 MG TABS 071782 LOVASTATIN Inactive DIFLUCAN 150 MG TABS 1 qd DIFLUCAN 150 MG T ABS 885486 FLUCONAZOLE Inactive VITAMIN D3 2000 UNIT TABS 1 daily, for vitamin D deficiency 2014 VITAMIN D3 2000 UNIT TABS CHOLECALCIFEROL Inacti ve AMOXICILLIN 500 MG CAPS 1 cap by mouth three times a day AMOXICILLIN 500 MG CAPS 733316 AMOXICILLIN Inactive BACTRIM DS 800-160 MG TAB 1 tab by mouth twice daily X 10 DAYS 2 BACTRIM DS 800-160 MG TAB 728701 TRIMETHOPRIM-SULFAMETH OXAZOLE Inactive TRIMETHOPRIM 100 MG TABS 1/2 qd TRIMETHOPRI M 100 MG TABS 404722 TRIMETHOPRIM Inactive CETIRIZINE HCL 5 MG TABS Take 1 tablet by mouth daily CETIRIZINE HCL 5 MG TABS 1048413 CETIRIZINE HCL Inactive PRAMIPEXOLE DIHYDROCHLORIDE 0.125 MG ORAL TABS take 1 tablet po qhs for restless leg syndrome. PRAMIPEXOLE DIHYDROC HLORIDE 0.125 MG ORAL TABS 974451 PRAMIPEXOLE DIHYDROCHLORIDE Inactive MIRTAZAPINE 15 MG ORAL TABS 1/2 tab by mouth at bedtime. MIRTAZAPINE 15 MG ORAL TABS 730745 MIRTAZAPINE Inactive DIFLUCAN 100 MG TAB 1 tablet by mouth daily X 3 DAYS 2 DIFLUCAN 100 MG TAB 416106 FLUCONAZOLE Inactive DIFLUCAN 100 MG TABS 1 tablet by mouth every other day for 2 dos es DIFLUCAN 100 MG TABS 19760711 FLUCONAZOLE Inactive CEFTIN 250 MG TAB 1 tablet twice daily x 7 days 11/19 CEFTIN 250 MG TAB 160676 CEFUROXIME AXETIL Inactive BACTRIM DS 800-160 MG TAB 1 tab by mouth twice daily 2 BACTRIM DS 800-160 MG TAB 650039 TRIMETHOPRIM-SULFAMETHOXAZOLE Inac tive ZITHROMAX 250 MG TAB 2 po today, then 1 po q days 2-5 ZITHROMAX 250 MG TAB 4017316 AZITHROMYCIN Inactive BACTRIM DS 800-160 MG TAB 1 tab by mouth twice daily 2 BACTRIM DS 800-160 MG TAB 19830105 TRIMETHOPRIM-SULFAMETHOXAZOLE Inac tive BACTRIM DS 800-160 MG TAB 1 tab by mouth twice daily 2 BACTRIM DS 800-160 MG TAB 557861 TRIMETHOPRIM-SULFAMETHOXAZOLE Inac tive BACTRIM DS 800-160 MG TAB 1 tab by mouth twice daily 2 BACTRIM DS 800-160 MG TAB 19830105 TRIMETHOPRIM-SULFAMETHOXAZOLE Inac tive DIFLUCAN 150 MG TAB 1 tablet by mouth daily DIFLUCAN 150 MG TAB 19760712 FLUCONAZOLE Inactive BACTRIM DS 800-160 MG TAB 1 tab by mouth twice daily 2 BACTRIM DS 800-160 MG TAB 261084 TRIMETHOPRIM-SULFAMETHOXAZOLE Inac tive BACTRIM DS 800-160 MG [...] mg/dL Encounters Code Encounter Date Provider Facility CPT-[id number] Level 4 Est. Patient 09:14:56 CDT Tesfaye pearson MD [facility] CPT-92442 Level 4 Est. Patient 18:40:25 [employer] Tesfaye pearson MD [facility] CPT-06496 Level 4 Est. Patient 18:13:07 [employer] Tesfaye pearson MD [facility]-71679 Level 3 Est. Patient 10:46:32 CDT Rj cotto DO [facility] CPT-81623 Level 4 Est. Patient 20:19:25 CDT Tesfaye pearson MD [facility]-73025 Level 3 Est. Patient 09:07:31 CDT Tesfaye pearson MD [facility]-66391 Level 4 Est. Patient 13:12:56 CDT Tesfaye pearson MD [facility]-80122 Level 4 Est. Patient 21:24:55 [employer] Tesfaye pearson MD [facility]-68087 Level 3 Est. Patient 13:45:04 [employer] Tesfaye pearson MD [facility] CPT-23792 Level 4 Est. Patient 13:50:45 CDT Tesfaye pearson MD [facility] CPT-62570 Level 3 Est. Patient 10:16:10 CDT Tesfaye pearson MD [facility] CPT-45798 Level 3 Est. Patient 16:36:07 [employer] Kayla jameson MD [facility]-85508 Level 4 Est. Patient 16:00:14 [employer] Tesfaye pearson MD [facility]-33063 Level 4 Est. Patient 11:02:24 [employer] Tesfaye pearson MD [facility]-78288 Level 3 Est. Patient 20:21:43 [employer] Kayla jameson MD [facility]-05439 Level 3 Est. Patient 13:27:28 [employer] Kayla jameson MD [facility]-69625 Level 4 Est. Patient 15:57:17 [employer] Tesfaye pearson MD [facility] CPT-34542 Level 3 New Patient 13:25:47 CDT Tesfaye kidd MD [facility] CPT-75534 Level 3 New Patient 17:22:21 CDT Kayla angel MD [facility] Procedures Code Procedure Name Date Entry Date Standard Desc ription CPT-G0439 Subsequent Annual Wellness Exam 13:55:04 CDT CPT-G0438 Initial Annual Wellness Exam 11:23:17 CD T CPT-J2930 Solu Medrol 125 mg (Methyl Prednisolone Sodium Succinate) 17:29:12 [employer] CPT-10117 Abx/Therapy Injection 17:29:11 [employer] CPT-J2930 Solu Medrol 125 mg (Methyl Prednisolone Sodium Succinate) 12:34:38 [employer] CPT-J3420 Vitamin B12 1000mcg (Cyanocobalamin) 09:12:55 CDT CPT-J3420 Vitamin B12 1000mcg (Cyanocobalamin) 16:28:06 [employer] CPT-00565 Venipuncture Draw Fee 08:39:53 CDT CPT-J3420 Vitamin B12 1000mcg (Cyanocobalamin) 08:46:22 CDT CPT-39498 Abx/Therapy Injection 08:46:22 CDT CPT-J3420 Vitamin B12 1000mcg (Cyanocobalamin) 08:41:26 CDT CPT-40702 Abx/Therapy Injection 08:41:26 CDT CPT-J3420 Vitamin B12 1000mcg (Cyanocobalamin) 08:57:15 CDT CPT-73249 Abx/Therapy Injection 08:57:15 CDT CPT-J3420 Vitamin B12 1000mcg (Cyanocobalamin) 10:59:03 CDT CPT-53450 Abx/Therapy Injection 10:59:03 CDT CPT-J3420 Vitamin B12 1000mcg (Cyanocobalamin) 15:05:39 CDT CPT-71022 Abx/Therapy Injection 15:05:39 CDT CPT-J3420 Vitamin B12 1000mcg (Cyanocobalamin) 13:50:45 CDT CPT-J3420 Vitamin B12 1000mcg (Cyanocobalamin) 08:48:55 CDT CPT-28982 Abx/Therapy Injection 08:48:55 CDT CPT-J3420 Vitamin B12 1000mcg (Cyanocobalamin) 09:14:54 CDT CPT-69813 Abx/Therapy Injection 09:14:54 CDT CPT-J3420 Vitamin B12 1000mcg (Cyanocobalamin) 09:06:06 CDT CPT-83465 Abx/Therapy Injection 09:06:06 CDT CPT-J3420 Vitamin B12 1000mcg (Cyanocobalamin) 09:49:14 CDT CPT-56022 Abx/Therapy Injection 09:49:14 CDT CPT-J3420 Vitamin B12 1000mcg (Cyanocobalamin) 09:10:30 [employer] CPT-13748 Abx/Therapy Injection 09:10:30 [employer] CPT-J3420 Vitamin B12 1000mcg (Cyanocobalamin) 09:11:07 [employer] CPT-14600 Abx/Therapy Injection 09:11:07 [employer] CPT-J3420 Vitamin B12 1000mcg (Cyanocobalamin) 09:57:03 [employer] CPT-73649 Abx/Therapy Injection 09:57:03 [employer] CPT-J3420 Vitamin B12 1000mcg (Cyanocobalamin) 09:23:21 [employer] CPT-16968 Abx/Therapy Injection 09:23:21 [employer] CPT-46264 Urine Dip (Floor Use Only) 20:21:44 [employer]ER 201 02/12/11 CPT-72326 UA Dip Auto (Floor Use Only) 10:04:39 [employer] 2 CPT-66838 Urine Dip (Floor Use Only) 13:27:28 [employer]ER 201 02/12/01 CPT-20330 Bladder Scan 13:27:28 [employer] CPT-87834 Abd single AP View 14:30:51 [employer] CPT-OV Office Visit 10:15:43 CDT CPT-44908 Urine Dip (Floor Use Only) 17:22:21 CDT 201 02/09/02 CPT-95334 Bladder Scan 17:22:21 CDT
--- OUTSIDE RECORDS SUMMARY | 2020-05-05 11:50 | XMS REPORT | Clinical Summary ---
Author Author Talon, Jeri Wood Organization [employer] Address Unknown Phone Unavailable Allergies, Adverse Reactions, [...] NDC Status Provider Patient Instruction VENLAFAXINE HCL 75 MG TABS 1 am 1/2 at noon BALA LAFAXINE HCL [id number] Active Tesfaye Sherman MD Active DIFLUCAN 100 MG TAB 1 tablet by mouth daily FLU CONAZOLE 19413449426 No Longer Active Tesfaye Sherman MD Active BACTRIM DS 800-160 MG TAB 1 tab by mouth twice daily 2 TRIMETHOPRIM-SULFAMETHOXAZOLE 56806156786 No Longer Active Laurence Angelica Active FOSAMAX 70 MG TABS 1 po qweek. Take 30min prio r to first food/drink. Avoid lying down x 1 hour. ALENDRONATE SODIUM [id number] N o Longer Active Laurence Angelica Active REPHRESH PRO-B ORAL CAPS 1 tablet daily LACTOBACI LLUS 01881395728 Active Edith Burch MD Active CYMBALTA 60 MG CPEP Take 1 tablet by mouth daily 1 DULOXETINE HCL 15845055406 No Longer Active Edith Burch MD Active CYMBALTA 30 MG CPEP 1 cap by mouth daily with 60mg 201 05/09/11 DULOXETINE HCL 57896678136 No Longer Active Edith Burch MD Activ e FISH OIL 1000 MG CPDR 1 pill by mouth daily for cholesterol 04/18 OMEGA- 3 FATTY ACIDS 34434295312 Active Rosa Jaffe LPN Acti ve RED YEAST RICE 600 MG CAPS 1 pill by mouth daily RED YEAST RICE EXTRACT 87285930102 Active KENDELL Moreno e DIFLUCAN 100 MG TAB 1 tablet by mouth daily FLU CONAZOLE 89630586667 No Longer Active Tesfaye Sherman MD Active BACTRIM DS 800-160 MG TAB 1 tab by mouth twice daily 2 TRIMETHOPRIM-SULFAMETHOXAZOLE 07611960782 No Longer Active Tesfaye Sherman MD Active BACTRIM DS 800-160 MG TAB 1 tab by mouth twice daily 2 TRIMETHOPRIM-SULFAMETHOXAZOLE 15168389518 No Longer Active Tesfaye Sherman MD Active DIFLUCAN 150 MG TAB 1 tablet by mouth daily FLU CONAZOLE 46102419729 No Longer Active Tesfaye Sherman MD Active BACTRIM DS 800-160 MG TAB 1 tab by mouth twice daily 2 TRIMETHOPRIM-SULFAMETHOXAZOLE 95919512775 No Longer Active Tesfaye Sherman MD Active ROPINIROLE HCL 0.25 MG ORAL TABS 1 TAB PO Q HS ROPINIROLE HCL 03891045137 Active Tesfaye Sherman MD Active CEFTIN 250 MG TAB 1 tablet twice daily x 7 days 11/19 CEFUROXIME AXETIL 43039721484 No Longer Active Tesfaye Sherman MD Acti ve DIFLUCAN 100 MG TABS 1 tablet by mouth every other day for 2 dos es FLUCONAZOLE 05808292940 No Longer Active Tesfaey Sherman MD Active DIFLUCAN 100 MG TAB 1 tablet by mouth daily X 3 DAYS 2 FLUCONAZOLE 50242461882 No Longer Active Rj Moss DO Active MIRTAZAPINE 15 MG ORAL TABS 1/2 tab by mouth at bedtime. MIRTAZAPINE 54142267850 No Longer Active Tesfaye Sherman MD Acti ve BACTRIM DS 800-160 MG TAB 1 tab by mouth twice daily 2 TRIMETHOPRIM-SULFAMETHOXAZOLE 62710353815 No Longer Active Tesfaye Sherman MD Active PRAMIPEXOLE DIHYDROCHLORIDE 0.125 MG ORAL TABS take 1 tablet po qhs for restless leg syndrome. PRAMIPEXOLE DIHYDROCHLORIDE 11258733942 No Longer Active Tesfaye Sherman MD Active MAGNESIUM 400 MG ORAL TABS 1 tab po daily MAGNESI UM 32327042975 Active Chelsea Barba APRN Active SUDAFED 24 HOUR 240 MG ORAL [id number] 1 tab po daily PSEUDOEPHEDRINE HCL 77689345135 Active Chelsea Barba APRN A ctive CETIRIZINE HCL 5 MG TABS Take 1 tablet by mouth daily CETIRIZINE HCL 08511396855 No Longer Active Chelsea Barba APRN Acti ve TRIMETHOPRIM 100 MG TABS 1/2 qd TRIMETHOPRIM 87690516636 No Longer Active Chelsea Barba APRN Active BACTRIM DS 800-160 MG TAB 1 tab by mouth twice daily 2 TRIMETHOPRIM-SULFAMETHOXAZOLE 99881239115 No Longer Active Tesfaye Sherman MD Active BACTRIM DS 800-160 MG TAB 1 tab by mouth twice daily X 10 DAYS 2 TRIMETHOPRIM-SULFAMETHOXAZOLE 55568423983 No Longer Active Umer Sherman MD Active AMOXICILLIN 500 MG CAPS 1 cap by mouth three times a day AMOXICILLIN 23188880496 No Longer Active Adriana Arredondo Active MECLIZINE HCL 25 MG TAB one tab po qday prn dizziness MECLIZINE HCL 08111880559 Active Tesfaye Sherman MD Active B-12 1000 MCG ORAL LOZG 1 tab po daily CYANOCOBAL STANTON 85911713122 Active Tesfaye Sherman MD Active VITAMIN D3 2000 UNIT TABS 1 daily, for vitamin D deficiency 2014 CHOLECALCIFEROL 91954001267 No Longer Active Tesfaye Sherman MD Active TIZANIDINE HCL 2 MG TABS take 1-2 tablet by mouth ev day at bedtime at 9pm PRN TIZANIDINE HCL 98765231453 Active Tesfaye Owusu Active ZITHROMAX 250 MG TAB 2 po today, then 1 po q days 2-5 AZITHROMYCIN 00934246126 No Longer Active Tesfaye Sherman MD Acti ve BACTRIM DS 800-160 MG TAB 1 tab by mouth twice daily 2 TRIMETHOPRIM-SULFAMETHOXAZOLE 04035075954 No Longer Active Tesfaye Sherman MD Active PRELIEF 340 (65-50) MG (CA-P) ORAL TABS CALCIUM GLYCEROPHOSPHATE 43261677596 Active Tesfaye Sherman MD Active [facility] NIACIN FLUSH FREE 400-100 MG CAPS 1 daily NIACIN-INOSITOL 29423456770 Active Kayla Cooper MD Active DIFLUCAN 150 MG TABS 1 qd FLUCONAZOLE 51795 601517 No Longer Active Kayla Cooper MD Active FLUTICASONE PROPIONATE 50 MCG/ACT SUSP 1 spray each nostril twice daily FLUTICASONE PROPIONATE 17146001212 Active Tesfaye armenta MD Active LOVASTATIN 20 MG TABS Take 1 tablet by mouth daily LOVASTATIN 94459389913 No Longer Active Tesfaye Sherman MD Active MELOXICAM 7.5 MG TABS 1 tablet by mouth daily M ELOXICAM 19701375107 No Longer Active Tesfaye Sherman MD Active GABAPENTIN 300 MG CAPS Take two tablets by mouth every evening GABAPENTIN 31211943277 No Longer Active Edith Burch MD Active OXYCODONE-ACETAMINOPHEN 5-325 MG TABS Take one tablet by mouth every 6 hours as needed. Max 12 tabs/day as needed OXYCODONE-ACETAMINOP HEN 21231421741 Active Tesfaye Sherman MD Active CLONAZEPAM 0.5 MG TABS Take one tablet in the morning and 1.5 table t at 7pm CLONAZEPAM 71973065473 Active Kayla Cooper MD Active BACLOFEN 10 MG TABS Take one tablet by mouth three times a day BACLOFEN 17739832042 Active Kayla Cooper MD Active GABAPENTIN 300 MG CAPS Take two tablets by mouth every evening GABAPENTIN 300 MG CAPS 979535 GABAPENTIN Inactive MELOXICAM 7.5 MG TABS 1 tablet by mouth daily MELOXICAM 7.5 MG TABS 278958 MELOXICAM Inactive LOVASTATIN 20 MG TABS Take 1 tablet by mouth daily 201 02/12/20 LOVASTATIN 20 MG TABS 532895 LOVASTATIN Inactive DIFLUCAN 150 MG TABS 1 qd DIFLUCAN 150 MG T ABS 671585 FLUCONAZOLE Inactive VITAMIN D3 2000 UNIT TABS 1 daily, for vitamin D deficiency 2014 VITAMIN D3 2000 UNIT TABS CHOLECALCIFEROL Inacti ve AMOXICILLIN 500 MG CAPS 1 cap by mouth three times a day AMOXICILLIN 500 MG CAPS 902533 AMOXICILLIN Inactive BACTRIM DS 800-160 MG TAB 1 tab by mouth twice daily X 10 DAYS 2 BACTRIM DS 800-160 MG TAB 326902 TRIMETHOPRIM-SULFAMETH OXAZOLE Inactive TRIMETHOPRIM 100 MG TABS 1/2 qd TRIMETHOPRI M 100 MG TABS 801222 TRIMETHOPRIM Inactive CETIRIZINE HCL 5 MG TABS Take 1 tablet by mouth daily CETIRIZINE HCL 5 MG TABS 8946400 CETIRIZINE HCL Inactive PRAMIPEXOLE DIHYDROCHLORIDE 0.125 MG ORAL TABS take 1 tablet po qhs for restless leg syndrome. PRAMIPEXOLE DIHYDROC HLORIDE 0.125 MG ORAL TABS 963942 PRAMIPEXOLE DIHYDROCHLORIDE Inactive MIRTAZAPINE 15 MG ORAL TABS 1/2 tab by mouth at bedtime. MIRTAZAPINE 15 MG ORAL TABS 359123 MIRTAZAPINE Inactive DIFLUCAN 100 MG TAB 1 tablet by mouth daily X 3 DAYS 2 DIFLUCAN 100 MG TAB 307546 FLUCONAZOLE Inactive DIFLUCAN 100 MG TABS 1 tablet by mouth every other day for 2 dos es DIFLUCAN 100 MG TABS 580894 FLUCONAZOLE Inactive CEFTIN 250 MG TAB 1 tablet twice daily x 7 days 11/19 CEFTIN 250 MG TAB 908626 CEFUROXIME AXETIL Inactive CYMBALTA 30 MG CPEP 1 cap by mouth daily with 60mg 201 05/09/11 CYMBALTA 30 MG CPEP 791342 DULOXETINE HCL Inactive CYMBALTA 60 MG CPEP Take 1 tablet by mouth daily 05/13 CYMBALTA 60 MG CPEP 366778 DULOXETINE HCL Inactive FOSAMAX 70 MG TABS 1 po qweek. Take 30min prio r to first food/drink. Avoid lying down x 1 hour. FOSAMAX 70 MG TABS 360384 A LENDRONATE SODIUM Inactive DIFLUCAN 100 MG TAB 1 tablet by mouth daily DIFLUCAN 100 MG TAB 917469 FLUCONAZOLE Inactive BACTRIM DS 800-160 MG TAB 1 tab by mouth twice daily 2 BACTRIM DS 800-160 MG TAB 19830105 TRIMETHOPRIM-SULFAMETHOXAZOLE Inac tive ZITHROMAX 250 MG TAB 2 po today, then 1 po q days 2-5 ZITHROMAX 250 MG TAB 841632 AZITHROMYCIN Inactive BACTRIM DS 800-160 MG TAB [...] ... - Chemistry sodium, serum 144 mmol/L 203-567 7393/06/14 carbon dioxide, venous blood 29.4 mmol/L 21.0-32 .0 potassium, serum 4.4 mmol/L 3.5-5.2 chloride, serum 108 mmol/L 98-107 blood glucose 100 mg/dL 65-110 urea nitrogen, blood 9 mg/dL 7-18 creatinine, serum 0.67 mg/dL 0.55-1.30 alanine aminotransferase (SGPT), serum 24 U/L 12-78 aspartate aminotransferase (SGOT), serum 15 U/L 15-37 calcium, serum 9.3 mg/dL 8.5-10.1 bilirubin, serum, total 0.50 mg/dL 0.00-1.00 cholesterol, serum 268 mg/dL 505-882 9119/06/14 triglyceride, serum, fasting 126 mg/dL 30-200 HDL [...] mg/dL Encounters Code Encounter Date Provider Facility CPT-11703 Level 4 Est. Patient 13:56:54 CDT Tesfaye pearson MD [facility] CPT-34790 Level 4 Est. Patient 13:24:25 CDT Stephanie MERCADO [facility] CPT-38355 Level 4 Est. Patient 09:14:56 CDT Tesfaye pearson MD [facility] CPT-25008 Level 4 Est. Patient 18:40:25 BEDSPREAD SEAMER Tesfaye pearson MD [facility] CPT-63525 Level 4 Est. Patient 18:13:07 BEDSPREAD SEAMER Tesfaye pearson MD [facility] CPT-18817 Level 3 Est. Patient 10:46:32 CDT Rj cotto DO [facility] CPT-50167 Level 4 Est. Patient 20:19:25 CDT Tesfaye pearson MD [facility] CPT-87241 Level 3 Est. Patient 09:07:31 CDT Tesfaye pearson MD [facility] CPT-80516 Level 4 Est. Patient 13:12:56 CDT Tesfaye pearson MD [facility] CPT-84082 Level 4 Est. Patient 21:24:55 BEDSPREAD SEAMER Tesfaye pearson MD [facility] CPT-37562 Level 3 Est. Patient 13:45:04 BEDSPREAD SEAMER Tesfaye pearson MD [facility] CPT-64009 Level 4 Est. Patient 13:50:45 CDT Tesfaye pearson MD [facility] CPT-75539 Level 3 Est. Patient 10:16:10 CDT Tesfaye pearson MD [facility] CPT-84169 Level 3 Est. Patient 16:36:07 BEDSPREAD SEAMER Kayla jameson MD [facility]-49618 Level 4 Est. Patient 16:00:14 BEDSPREAD SEAMER Tesfaye pearson MD [facility] CPT-09973 Level 4 Est. Patient 11:02:24 BEDSPREAD SEAMER Tesfaye pearson MD [facility] CPT-38597 Level 3 Est. Patient 20:21:43 BEDSPREAD SEAMER Kayla jameson MD [facility] CPT-43383 Level 3 Est. Patient 13:27:28 BEDSPREAD SEAMER Kayla jameson MD [facility] CPT-46569 Level 4 Est. Patient 15:57:17 BEDSPREAD SEAMER Tesfaye pearson MD [facility] CPT-31231 Level 3 New Patient 13:25:47 CDT Tesfaye kidd MD [facility] CPT-09099 Level 3 New Patient 17:22:21 CDT Kayla angel MD [facility] Procedures Code Procedure Name Date Entry Date Standard Desc ription CPT-75402 Bone Density - XRAY USE ONLY 11:43:58 CDT CPT-45384 Bone Density - XRAY USE ONLY 10:05:16 CDT 2 CPT-17229 Prv Med New Pt 40-64 yrs 18:19:25 CDT 2016 CPT-19122 Foot, right, comp min 3V - XRAY USE ONLY 10:38:34 CDT CPT-G0439 Subsequent Annual Wellness Exam 13:55:04 CDT CPT-G0438 Initial Annual Wellness Exam 11:23:17 CD T CPT-J2930 Solu Medrol 125 mg (Methyl Prednisolone Sodium Succinate) 17:29:12 BEDSPREAD SEAMER CPT-44870 Abx/Therapy Injection 17:29:11 BEDSPREAD SEAMER CPT-J2930 Solu Medrol 125 mg (Methyl Prednisolone Sodium Succinate) 12:34:38 BEDSPREAD SEAMER CPT-J3420 Vitamin B12 1000mcg (Cyanocobalamin) 09:12:55 CDT CPT-J3420 Vitamin B12 1000mcg (Cyanocobalamin) 16:28:06 BEDSPREAD SEAMER CPT-48174 Venipuncture Draw Fee 08:39:53 CDT CPT-J3420 Vitamin B12 1000mcg (Cyanocobalamin) 08:46:22 CDT CPT-65578 Abx/Therapy Injection 08:46:22 CDT CPT-J3420 Vitamin B12 1000mcg (Cyanocobalamin) 08:41:26 CDT CPT-83629 Abx/Therapy Injection 08:41:26 CDT CPT-J3420 Vitamin B12 1000mcg (Cyanocobalamin) 08:57:15 CDT CPT-95323 Abx/Therapy Injection 08:57:15 CDT CPT-J3420 Vitamin B12 1000mcg (Cyanocobalamin) 10:59:03 CDT CPT-78569 Abx/Therapy Injection 10:59:03 CDT CPT-J3420 Vitamin B12 1000mcg (Cyanocobalamin) 15:05:39 CDT CPT-63312 Abx/Therapy Injection 15:05:39 CDT CPT-J3420 Vitamin B12 1000mcg (Cyanocobalamin) 13:50:45 CDT CPT-J3420 Vitamin B12 1000mcg (Cyanocobalamin) 08:48:55 CDT CPT-68269 Abx/Therapy Injection 08:48:55 CDT CPT-J3420 Vitamin B12 1000mcg (Cyanocobalamin) 09:14:54 CDT CPT-73270 Abx/Therapy Injection 09:14:54 CDT CPT-J3420 Vitamin B12 1000mcg (Cyanocobalamin) 09:06:06 CDT CPT-10485 Abx/Therapy Injection 09:06:06 CDT CPT-J3420 Vitamin B12 1000mcg (Cyanocobalamin) 09:49:14 CDT CPT-75632 Abx/Therapy Injection 09:49:14 CDT CPT-J3420 Vitamin B12 1000mcg (Cyanocobalamin) 09:10:30 BEDSPREAD SEAMER CPT-88485 Abx/Therapy Injection 09:10:30 BEDSPREAD SEAMER CPT-J3420 Vitamin B12 1000mcg (Cyanocobalamin) 09:11:07 BEDSPREAD SEAMER CPT-54915 Abx/Therapy Injection 09:11:07 BEDSPREAD SEAMER CPT-J3420 Vitamin B12 1000mcg (Cyanocobalamin) 09:57:03 BEDSPREAD SEAMER CPT-08567 Abx/Therapy Injection 09:57:03 BEDSPREAD SEAMER CPT-J3420 Vitamin B12 1000mcg (Cyanocobalamin) 09:23:21 BEDSPREAD SEAMER CPT-66747 Abx/Therapy Injection 09:23:21 BEDSPREAD SEAMER CPT-56418 Urine Dip (Floor Use Only) 20:21:44 BEDSPREAD SEAMER 201 02/12/11 CPT-55714 UA Dip Auto (Floor Use Only) 10:04:39 BEDSPREAD SEAMER 2 CPT-73483 Urine Dip (Floor Use Only) 13:27:28 BEDSPREAD SEAMER 201 02/12/01 CPT-09535 Bladder Scan 13:27:28 BEDSPREAD SEAMER CPT-30229 Abd single AP View 14:30:51 BEDSPREAD SEAMER CPT-OV Office Visit 10:15:43 CDT CPT-93365 Urine Dip (Floor Use Only) 17:22:21 CDT 201 02/09/02 CPT-17562 Bladder Scan 17:22:21 CDT
--- OUTSIDE RECORDS SUMMARY | 2020-05-05 11:51 | XMS REPORT | Clinical Summary ---
Author Author Talon, Jeri Wood Organization [employer] Address Unknown Phone Unavailable Allergies, Adverse Reactions, [...] Active Kayla guadarrama MD BENADRYIsrael Critical Active Kalya tate MD ATIVAN Critical Active Kayla tate [...] ORAL CAPS 1 tablet daily LACTOBACI LLUS 48588499793 Active Edith Burch MD Active CYMBALTA 60 MG CPEP Take 1 tablet by mouth daily 1 DULOXETINE HCL 10862929950 No Longer Active Edith Burch MD Active CYMBALTA 30 MG CPEP 1 cap by mouth daily with 60mg 201 05/09/11 DULOXETINE HCL 16912608690 No Longer Active Edith Burch MD Activ e FISH OIL 1000 MG CPDR 1 pill by mouth daily for cholesterol 04/18 OMEGA- 3 FATTY ACIDS 74100994130 Active Rosa Jaffe LPN Acti ve RED YEAST RICE 600 MG CAPS 1 pill by mouth daily RED YEAST RICE EXTRACT 34770538457 Active Rosa Jaffe LPN Activ e VENLAFAXINE HCL 37.5 MG TABS 1/4 tab po titrating up to full dose 2 VENLAFAXINE HCL 30112478412 Active Chelsea Barba APRN Activ e DIFLUCAN 100 MG TAB 1 tablet by mouth daily FLU CONAZOLE 30424934221 No Longer Active Tesfaye Sherman MD Active BACTRIM DS 800-160 MG TAB 1 tab by mouth twice daily 2 TRIMETHOPRIM-SULFAMETHOXAZOLE 66325827442 No Longer Active Tesfaye Sherman MD Active BACTRIM DS 800-160 MG TAB 1 tab by mouth twice daily 2 TRIMETHOPRIM-SULFAMETHOXAZOLE 85137131247 No Longer Active Tesfaye Sherman MD Active DIFLUCAN 150 MG TAB 1 tablet by mouth daily FLU CONAZOLE 07892201930 No Longer Active Tesfaye Sherman MD Active BACTRIM DS 800-160 MG TAB 1 tab by mouth twice daily 2 TRIMETHOPRIM-SULFAMETHOXAZOLE 99913658703 No Longer Active Tesfaye Sherman MD Active ROPINIROLE HCL 0.25 MG ORAL TABS 1 TAB PO Q HS ROPINIROLE HCL 83368903501 Active Tesfaye Sherman MD Active CEFTIN 250 MG TAB 1 tablet twice daily x 7 days 11/19 CEFUROXIME AXETIL 07644796675 No Longer Active Tesfaye Sherman MD Acti ve DIFLUCAN 100 MG TABS 1 tablet by mouth every other day for 2 dos es FLUCONAZOLE 82836956755 No Longer Active Tesfaye Sherman MD Active DIFLUCAN 100 MG TAB 1 tablet by mouth daily X 3 DAYS 2 FLUCONAZOLE 41024981707 No Longer Active Rj Moss DO Active MIRTAZAPINE 15 MG ORAL TABS 1/2 tab by mouth at bedtime. MIRTAZAPINE 85074947961 No Longer Active Tesfaye Sherman MD Acti ve BACTRIM DS 800-160 MG TAB 1 tab by mouth twice daily 2 TRIMETHOPRIM-SULFAMETHOXAZOLE 61755300868 No Longer Active Tesfaye Sherman MD Active PRAMIPEXOLE DIHYDROCHLORIDE 0.125 MG ORAL TABS take 1 tablet po qhs for restless leg syndrome. PRAMIPEXOLE DIHYDROCHLORIDE 20634795584 No Longer Active Tesfaye Sherman MD Active MAGNESIUM 400 MG ORAL TABS 1 tab po daily MAGNESI UM 62956720527 Active Chelsea Barba APRN Active SUDAFED 24 HOUR 240 MG ORAL [id number] 1 tab po daily PSEUDOEPHEDRINE HCL 61928912313 Active Chelsea Barba APRN A ctive CETIRIZINE HCL 5 MG TABS Take 1 tablet by mouth daily CETIRIZINE HCL 88665241236 No Longer Active Chelsea Barba APRN Acti ve TRIMETHOPRIM 100 MG TABS 1/2 qd TRIMETHOPRIM 77313413059 No Longer Active Chelsea Barba YARD ASSISTANT Active BACTRIM DS 800-160 MG TAB 1 tab by mouth twice daily 2 TRIMETHOPRIM-SULFAMETHOXAZOLE 22473333246 No Longer Active Tesfaye Sherman MD Active BACTRIM DS 800-160 MG TAB 1 tab by mouth twice daily X 10 DAYS 2 TRIMETHOPRIM-SULFAMETHOXAZOLE 50547962160 No Longer Active Umer Sherman MD Active AMOXICILLIN 500 MG CAPS 1 cap by mouth three times a day AMOXICILLIN 53917191355 No Longer Active Adriana Arredondo Active MECLIZINE HCL 25 MG TAB one tab po qday prn dizziness MECLIZINE HCL 55793079751 Active Tesfaye Sherman MD Active B-12 1000 MCG ORAL LOZG 1 tab po daily CYANOCOBAL STANTON 86347310247 Active Tesfaye Sherman MD Active VITAMIN D3 2000 UNIT TABS 1 daily, for vitamin D deficiency 2014 CHOLECALCIFEROL 74364815541 No Longer Active Tesfaye Sherman MD Active TIZANIDINE HCL 2 MG TABS take 1-2 tablet by mouth at bedtime at 9pm PRN TIZANIDINE HCL 16356155057 Active Tesfaye Owusu Active ZITHROMAX 250 MG TAB 2 po today, then 1 po q days 2-5 AZITHROMYCIN 36574882826 No Longer Active Tesfaye Sherman MD Acti ve BACTRIM DS 800-160 MG TAB 1 tab by mouth twice daily 2 TRIMETHOPRIM-SULFAMETHOXAZOLE 52898150827 No Longer Active Tesfaye Sherman MD Active PRELIEF 340 (65-50) MG (CA-P) ORAL TABS CALCIUM GLYCEROPHOSPHATE 76243617348 Active Tesfaye Sherman MD Active [facility] NIACIN FLUSH FREE 400-100 MG CAPS 1 daily NIACIN-INOSITOL 79450877741 Active Kayla Cooper MD Active DIFLUCAN 150 MG TABS 1 qd FLUCONAZOLE 80064 490357 No Longer Active Kayla Cooper MD Active FLUTICASONE PROPIONATE 50 MCG/ACT SUSP 1 spray each nostril twice daily FLUTICASONE PROPIONATE 20610385682 Active Tesfaye armenta MD Active LOVASTATIN 20 MG TABS Take 1 tablet by mouth daily LOVASTATIN 18628080865 No Longer Active Tesfaye Sherman MD Active MELOXICAM 7.5 MG TABS 1 tablet by mouth daily M ELOXICAM 95660181356 No Longer Active Tesfaye Sherman MD Active GABAPENTIN 300 MG CAPS Take two tablets by mouth every evening GABAPENTIN 81051432320 No Longer Active Edith Burch MD Active OXYCODONE-ACETAMINOPHEN 5-325 MG TABS Take one tablet by mouth every 6 hours as needed. Max 12 tabs/day as needed OXYCODONE-ACETAMINOP HEN 73934760080 Active Tesfaye Sherman MD Active CLONAZEPAM 0.5 MG TABS Take one tablet in the morning and 1.5 table t at 7pm CLONAZEPAM 50565409740 Active Kayla Cooper MD Active BACLOFEN 10 MG TABS Take one tablet by mouth three times a day BACLOFEN 00639005787 Active Kayla Cooper MD Active GABAPENTIN 300 MG CAPS Take two tablets by mouth every evening GABAPENTIN 300 MG CAPS 784030 GABAPENTIN Inactive MELOXICAM 7.5 MG TABS 1 tablet by mouth daily MELOXICAM 7.5 MG TABS 099648 MELOXICAM Inactive LOVASTATIN 20 MG TABS Take 1 tablet by mouth daily 201 02/12/20 LOVASTATIN 20 MG TABS 673500 LOVASTATIN Inactive DIFLUCAN 150 MG TABS 1 qd DIFLUCAN 150 MG T ABS 688727 FLUCONAZOLE Inactive VITAMIN D3 2000 UNIT TABS 1 daily, for vitamin D deficiency 2014 VITAMIN D3 2000 UNIT TABS CHOLECALCIFEROL Inacti ve AMOXICILLIN 500 MG CAPS 1 cap by mouth three times a day AMOXICILLIN 500 MG CAPS 244421 AMOXICILLIN Inactive BACTRIM DS 800-160 MG TAB 1 tab by mouth twice daily X 10 DAYS 2 BACTRIM DS 800-160 MG TAB 19830105 TRIMETHOPRIM-SULFAMETH OXAZOLE Inactive TRIMETHOPRIM 100 MG TABS 1/2 qd TRIMETHOPRI M 100 MG TABS 19830102 TRIMETHOPRIM Inactive CETIRIZINE HCL 5 MG TABS Take 1 tablet by mouth daily CETIRIZINE HCL 5 MG TABS 8165920 CETIRIZINE HCL Inactive PRAMIPEXOLE DIHYDROCHLORIDE 0.125 MG ORAL TABS take 1 tablet po qhs for restless leg syndrome. PRAMIPEXOLE DIHYDROC HLORIDE 0.125 MG ORAL TABS 599420 PRAMIPEXOLE DIHYDROCHLORIDE Inactive MIRTAZAPINE 15 MG ORAL TABS 1/2 tab by mouth at bedtime. MIRTAZAPINE 15 MG ORAL TABS 719559 MIRTAZAPINE Inactive DIFLUCAN 100 MG TAB 1 tablet by mouth daily X 3 DAYS 2 DIFLUCAN 100 MG TAB 413325 FLUCONAZOLE Inactive DIFLUCAN 100 MG TABS 1 tablet by mouth every other day for 2 dos es DIFLUCAN 100 MG TABS 523653 FLUCONAZOLE Inactive CEFTIN 250 MG TAB 1 tablet twice daily x 7 days 11/19 CEFTIN 250 MG TAB 473882 CEFUROXIME AXETIL Inactive CYMBALTA 30 MG CPEP 1 cap by mouth daily with 60mg 201 05/09/11 CYMBALTA 30 MG CPEP 287483 DULOXETINE HCL Inactive CYMBALTA 60 MG CPEP Take 1 tablet by mouth daily 05/13 CYMBALTA 60 MG CPEP 791402 DULOXETINE HCL Inactive BACTRIM DS 800-160 MG TAB 1 tab by mouth twice daily 2 BACTRIM DS 800-160 MG TAB 434236 TRIMETHOPRIM-SULFAMETHOXAZOLE Inac tive ZITHROMAX 250 MG TAB 2 po today, then 1 po q days 2-5 ZITHROMAX 250 MG TAB 4642124 AZITHROMYCIN Inactive BACTRIM DS 800-160 MG TAB [...] by mouth daily DIFLUCAN 100 MG TAB 570038 FLUCONAZOLE Inactive Advance Directives Directive Description Start [...] ... - Chemistry sodium, serum 144 mmol/L 859-079 5942/06/14 carbon dioxide, venous blood 29.4 mmol/L 21.0-32 .0 potassium, serum 4.4 mmol/L 3.5-5.2 chloride, serum 108 mmol/L 98-107 blood glucose 100 mg/dL 65-110 urea nitrogen, blood 9 mg/dL 7-18 creatinine, serum 0.67 mg/dL 0.55-1.30 alanine aminotransferase (SGPT), serum 24 U/L 12-78 aspartate aminotransferase (SGOT), serum 15 U/L 15-37 calcium, serum 9.3 mg/dL 8.5-10.1 bilirubin, serum, total 0.50 mg/dL 0.00-1.00 cholesterol, serum 268 mg/dL 158-082 4358/06/14 triglyceride, serum, fasting 126 mg/dL 30-200 HDL [...] mg/dL Encounters Code Encounter Date Provider Facility CPT-61265 Level 4 Est. Patient 13:24:25 CDT Stephanie MERCADO [facility] CPT-22488 Level 4 Est. Patient 09:14:56 CDT Tesfaye pearson MD [facility] CPT-57144 Level 4 Est. Patient 18:40:25 HOSPITAL SECURITY OFFICER Tesfaye pearson MD [facility] CPT-28770 Level 4 Est. Patient 18:13:07 HOSPITAL SECURITY OFFICER Tesfaye pearson MD [facility]-95295 Level 3 Est. Patient 10:46:32 CDT Rj cotto DO [facility]-22249 Level 4 Est. Patient 20:19:25 CDT Tesfaye pearson MD [facility]-68745 Level 3 Est. Patient 09:07:31 CDT Tesfaye pearson MD [facility]-29266 Level 4 Est. Patient 13:12:56 CDT Tesfaye pearson MD [facility]-25532 Level 4 Est. Patient 21:24:55 HOSPITAL SECURITY OFFICER Tesfaye pearson MD [facility]-32402 Level 3 Est. Patient 13:45:04 HOSPITAL SECURITY OFFICER Tesfaye pearson MD [facility] CPT-58966 Level 4 Est. Patient 13:50:45 CDT Tesfaye pearson MD [facility] CPT-03985 Level 3 Est. Patient 10:16:10 CDT Tesfaye pearson MD [facility] CPT-49198 Level 3 Est. Patient 16:36:07 HOSPITAL SECURITY OFFICER Kayla jameson MD [facility]-83467 Level 4 Est. Patient 16:00:14 HOSPITAL SECURITY OFFICER Tesfaye pearson MD [facility]-59411 Level 4 Est. Patient 11:02:24 HOSPITAL SECURITY OFFICER Tesfaye pearson MD [facility]-58943 Level 3 Est. Patient 20:21:43 HOSPITAL SECURITY OFFICER Kayla jameson MD [facility]-56713 Level 3 Est. Patient 13:27:28 HOSPITAL SECURITY OFFICER Kayla jameson MD [facility]-58668 Level 4 Est. Patient 15:57:17 HOSPITAL SECURITY OFFICER Tesfaye pearson MD [facility] CPT-80079 Level 3 New Patient 13:25:47 CDT Tesfaye kidd MD [facility] CPT-62371 Level 3 New Patient 17:22:21 CDT Kayla angel MD [facility] Procedures Code Procedure Name Date Entry Date Standard Desc ription CPT-82054 Prv Med New Pt 40-64 yrs 18:19:25 CDT 2016 CPT-60124 Foot, right, comp min 3V - XRAY USE ONLY 10:38:34 CDT CPT-G0439 Subsequent Annual Wellness Exam 13:55:04 CDT CPT-G0438 Initial Annual Wellness Exam 11:23:17 CD T CPT-J2930 Solu Medrol 125 mg (Methyl Prednisolone Sodium Succinate) 17:29:12 HOSPITAL SECURITY OFFICER CPT-84530 Abx/Therapy Injection 17:29:11 HOSPITAL SECURITY OFFICER CPT-J2930 Solu Medrol 125 mg (Methyl Prednisolone Sodium Succinate) 12:34:38 HOSPITAL SECURITY OFFICER CPT-J3420 Vitamin B12 1000mcg (Cyanocobalamin) 09:12:55 CDT CPT-J3420 Vitamin B12 1000mcg (Cyanocobalamin) 16:28:06 HOSPITAL SECURITY OFFICER CPT-73934 Venipuncture Draw Fee 08:39:53 CDT CPT-J3420 Vitamin B12 1000mcg (Cyanocobalamin) 08:46:22 CDT CPT-52159 Abx/Therapy Injection 08:46:22 CDT CPT-J3420 Vitamin B12 1000mcg (Cyanocobalamin) 08:41:26 CDT CPT-06076 Abx/Therapy Injection 08:41:26 CDT CPT-J3420 Vitamin B12 1000mcg (Cyanocobalamin) 08:57:15 CDT CPT-16569 Abx/Therapy Injection 08:57:15 CDT CPT-J3420 Vitamin B12 1000mcg (Cyanocobalamin) 10:59:03 CDT CPT-38322 Abx/Therapy Injection 10:59:03 CDT CPT-J3420 Vitamin B12 1000mcg (Cyanocobalamin) 15:05:39 CDT CPT-28899 Abx/Therapy Injection 15:05:39 CDT CPT-J3420 Vitamin B12 1000mcg (Cyanocobalamin) 13:50:45 CDT CPT-J3420 Vitamin B12 1000mcg (Cyanocobalamin) 08:48:55 CDT CPT-89167 Abx/Therapy Injection 08:48:55 CDT CPT-J3420 Vitamin B12 1000mcg (Cyanocobalamin) 09:14:54 CDT CPT-50415 Abx/Therapy Injection 09:14:54 CDT CPT-J3420 Vitamin B12 1000mcg (Cyanocobalamin) 09:06:06 CDT CPT-12044 Abx/Therapy Injection 09:06:06 CDT CPT-J3420 Vitamin B12 1000mcg (Cyanocobalamin) 09:49:14 CDT CPT-13179 Abx/Therapy Injection 09:49:14 CDT CPT-J3420 Vitamin B12 1000mcg (Cyanocobalamin) 09:10:30 HOSPITAL SECURITY OFFICER CPT-42201 Abx/Therapy Injection 09:10:30 HOSPITAL SECURITY OFFICER CPT-J3420 Vitamin B12 1000mcg (Cyanocobalamin) 09:11:07 HOSPITAL SECURITY OFFICER CPT-49860 Abx/Therapy Injection 09:11:07 HOSPITAL SECURITY OFFICER CPT-J3420 Vitamin B12 1000mcg (Cyanocobalamin) 09:57:03 HOSPITAL SECURITY OFFICER CPT-53328 Abx/Therapy Injection 09:57:03 HOSPITAL SECURITY OFFICER CPT-J3420 Vitamin B12 1000mcg (Cyanocobalamin) 09:23:21 HOSPITAL SECURITY OFFICER CPT-45537 Abx/Therapy Injection 09:23:21 HOSPITAL SECURITY OFFICER CPT-29836 Urine Dip (Floor Use Only) 20:21:44 HOSPITAL SECURITY OFFICER 201 02/12/11 CPT-17247 UA Dip Auto (Floor Use Only) 10:04:39 HOSPITAL SECURITY OFFICER 2 CPT-28115 Urine Dip (Floor Use Only) 13:27:28 HOSPITAL SECURITY OFFICER 201 02/12/01 CPT-98046 Bladder Scan 13:27:28 HOSPITAL SECURITY OFFICER CPT-43594 Abd single AP View 14:30:51 HOSPITAL SECURITY OFFICER CPT-OV Office Visit 10:15:43 CDT CPT-32972 Urine Dip (Floor Use Only) 17:22:21 CDT 201 02/09/02 CPT-16145 Bladder Scan 17:22:21 CDT
--- OUTSIDE RECORDS SUMMARY | 2020-05-05 11:51 | XMS REPORT | Clinical Summary ---
Author Author Talon, Jeri Wood Organization [employer] Address Unknown Phone Unavailable Allergies, Adverse Reactions, [...] up to full dose 2 VENLAFAXINE HCL [id number] Active Chelsea Barba APRN Activ e DIFLUCAN 100 MG TAB 1 tablet by mouth daily FLU CONAZOLE 61699309875 No Longer Active Tesfaye Sherman MD Active BACTRIM DS 800-160 MG TAB 1 tab by mouth twice daily 2 TRIMETHOPRIM-SULFAMETHOXAZOLE 57537891666 No Longer Active Tesfaye Sherman MD Active BACTRIM DS 800-160 MG TAB 1 tab by mouth twice daily 2 TRIMETHOPRIM-SULFAMETHOXAZOLE 99036574734 No Longer Active Tesfaye Sherman MD Active DIFLUCAN 150 MG TAB 1 tablet by mouth daily FLU CONAZOLE 98295251794 No Longer Active Tesfaye Sherman MD Active BACTRIM DS 800-160 MG TAB 1 tab by mouth twice daily 2 TRIMETHOPRIM-SULFAMETHOXAZOLE 30346084265 No Longer Active Tesfaye Sherman MD Active ROPINIROLE HCL 0.25 MG ORAL TABS 1 TAB PO Q HS ROPINIROLE HCL 24028394572 Active Tesfaye Sherman MD Active CYMBALTA 30 MG CPEP 1 cap by mouth daily with 60mg DULOXETINE HCL 70445260981 Active Tesfaye Sherman MD Active CEFTIN 250 MG TAB 1 tablet twice daily x 7 days 11/19 CEFUROXIME AXETIL 53954961572 No Longer Active Tesfaye Sherman MD Acti ve DIFLUCAN 100 MG TABS 1 tablet by mouth every other day for 2 dos es FLUCONAZOLE 32140525315 No Longer Active Tesfaye Sherman MD Active DIFLUCAN 100 MG TAB 1 tablet by mouth daily X 3 DAYS 2 FLUCONAZOLE 40902181893 No Longer Active Rj Moss DO Active MIRTAZAPINE 15 MG ORAL TABS 1/2 tab by mouth at bedtime. MIRTAZAPINE 36719756137 No Longer Active Tesfaye Sherman MD Acti ve BACTRIM DS 800-160 MG TAB 1 tab by mouth twice daily 2 TRIMETHOPRIM-SULFAMETHOXAZOLE 77436353838 No Longer Active Tesfaye Sherman MD Active PRAMIPEXOLE DIHYDROCHLORIDE 0.125 MG ORAL TABS take 1 tablet po qhs for restless leg syndrome. PRAMIPEXOLE DIHYDROCHLORIDE 58250773835 No Longer Active Tesfaye Sherman MD Active MAGNESIUM 400 MG ORAL TABS 1 tab po daily MAGNESI UM 88631197130 Active Chelsea Barba APRN Active SUDAFED 24 HOUR 240 MG ORAL [id number]-TOG 1 tab po daily PSEUDOEPHEDRINE HCL 16977663917 Active Chelsea Barba APRN A ctive CETIRIZINE HCL 5 MG TABS Take 1 tablet by mouth daily CETIRIZINE HCL 22055310345 No Longer Active Chelsea Barba APRN Acti ve TRIMETHOPRIM 100 MG TABS 1/2 qd TRIMETHOPRIM 80484678044 No Longer Active Chelsea Barba APRN Active BACTRIM DS 800-160 MG TAB 1 tab by mouth twice daily 2 TRIMETHOPRIM-SULFAMETHOXAZOLE 66434567915 No Longer Active Tesfaye Sherman MD Active BACTRIM DS 800-160 MG TAB 1 tab by mouth twice daily X 10 DAYS 2 TRIMETHOPRIM-SULFAMETHOXAZOLE 45291438641 No Longer Active Umer Sherman MD Active AMOXICILLIN 500 MG CAPS 1 cap by mouth three times a day AMOXICILLIN 36786865073 No Longer Active Adriana Arredondo Active MECLIZINE HCL 25 MG TAB one tab po qday prn dizziness MECLIZINE HCL 37770889786 Active Tesfaye Shreman MD Active B-12 1000 MCG ORAL LOZG 1 tab po daily CYANOCOBAL STANTON 36188912576 Active Tesfaye Sherman MD Active VITAMIN D3 2000 UNIT TABS 1 daily, for vitamin D deficiency 2014 CHOLECALCIFEROL 67012021486 No Longer Active Tesfaye Sherman MD Active TIZANIDINE HCL 2 MG TABS take 1-2 tablet by mouth ev at bedtime at 9pm PRN TIZANIDINE HCL 91229698844 Active Tesfaye Owusu Active ZITHROMAX 250 MG TAB 2 po today, then 1 po q days 2-5 AZITHROMYCIN 51815677718 No Longer Active Tesfaye Sherman MD Acti ve BACTRIM DS 800-160 MG TAB 1 tab by mouth twice daily 2 TRIMETHOPRIM-SULFAMETHOXAZOLE 50367329431 No Longer Active Tesfaye Sherman MD Active PRELIEF 340 (65-50) MG (CA-P) ORAL TABS CALCIUM GLYCEROPHOSPHATE 39987589031 Active Tesfaye Sherman MD Active [facility] NIACIN FLUSH FREE 400-100 MG CAPS 1 daily NIACIN-INOSITOL 44034273020 Active Kayla Cooper MD Active DIFLUCAN 150 MG TABS 1 qd FLUCONAZOLE 46382 572544 No Longer Active Kayla Cooper MD Active FLUTICASONE PROPIONATE 50 MCG/ACT SUSP 1 spray each nostril twice daily FLUTICASONE PROPIONATE 28632769975 Active Tesfaye armenta MD Active LOVASTATIN 20 MG TABS Take 1 tablet by mouth daily LOVASTATIN 18527561550 No Longer Active Tesfaye Sherman MD Active MELOXICAM 7.5 MG TABS 1 tablet by mouth daily Gisela ELOXICAM 39229290661 No Longer Active Tesfaye Sherman MD Active GABAPENTIN 300 MG CAPS Take two tablets by mouth every evening GABAPENTIN 41839642859 No Longer Active Edith Burch MD Active OXYCODONE-ACETAMINOPHEN 5-325 MG TABS Take one tablet by mouth every 6 hours as needed. Max 12 tabs/day as needed OXYCODONE-ACETAMINOP HEN 29171368332 Active Tesfaye Sherman MD Active CYMBALTA 60 MG CPEP Take 1 tablet by mouth daily D ULOXETINE HCL 80692954250 Active Kayla Cooper MD Active CLONAZEPAM 0.5 MG TABS Take one tablet in the morning and 1.5 table t at 7pm CLONAZEPAM 30777698929 Active Kayla Cooper MD Active BACLOFEN 10 MG TABS Take one tablet by mouth three times a day BACLOFEN 08984114734 Active Kayla Cooper MD Active GABAPENTIN 300 MG CAPS Take two tablets by mouth every evening GABAPENTIN 300 MG CAPS 003915 GABAPENTIN Inactive MELOXICAM 7.5 MG TABS 1 tablet by mouth daily MELOXICAM 7.5 MG TABS 235458 MELOXICAM Inactive LOVASTATIN 20 MG TABS Take 1 tablet by mouth daily 201 02/12/20 LOVASTATIN 20 MG TABS 508450 LOVASTATIN Inactive DIFLUCAN 150 MG TABS 1 qd DIFLUCAN 150 MG T ABS 694726 FLUCONAZOLE Inactive VITAMIN D3 2000 UNIT TABS 1 daily, for vitamin D deficiency 2014 VITAMIN D3 2000 UNIT TABS CHOLECALCIFEROL Inacti ve AMOXICILLIN 500 MG CAPS 1 cap by mouth three times a day AMOXICILLIN 500 MG CAPS 894744 AMOXICILLIN Inactive BACTRIM DS 800-160 MG TAB 1 tab by mouth twice daily X 10 DAYS 2 BACTRIM DS 800-160 MG TAB 19830105 TRIMETHOPRIM-SULFAMETH OXAZOLE Inactive TRIMETHOPRIM 100 MG TABS 1/2 qd TRIMETHOPRI M 100 MG TABS 899311 TRIMETHOPRIM Inactive CETIRIZINE HCL 5 MG TABS Take 1 tablet by mouth daily CETIRIZINE HCL 5 MG TABS 8369265 CETIRIZINE HCL Inactive PRAMIPEXOLE DIHYDROCHLORIDE 0.125 MG ORAL TABS take 1 tablet po qhs for restless leg syndrome. PRAMIPEXOLE DIHYDROC HLORIDE 0.125 MG ORAL TABS 125126 PRAMIPEXOLE DIHYDROCHLORIDE Inactive MIRTAZAPINE 15 MG ORAL TABS 1/2 tab by mouth at bedtime. MIRTAZAPINE 15 MG ORAL TABS 726762 MIRTAZAPINE Inactive DIFLUCAN 100 MG TAB 1 tablet by mouth daily X 3 DAYS 2 DIFLUCAN 100 MG TAB 282180 FLUCONAZOLE Inactive DIFLUCAN 100 MG TABS 1 tablet by mouth every other day for 2 dos es DIFLUCAN 100 MG TABS 495271 FLUCONAZOLE Inactive CEFTIN 250 MG TAB 1 tablet twice daily x 7 days 11/19 CEFTIN 250 MG TAB 608382 CEFUROXIME AXETIL Inactive BACTRIM DS 800-160 MG TAB 1 tab by mouth twice daily 2 BACTRIM DS 800-160 MG TAB 19830105 TRIMETHOPRIM-SULFAMETHOXAZOLE Inac tive ZITHROMAX 250 MG TAB 2 po today, then 1 po q days 2-5 ZITHROMAX 250 MG TAB 2294380 AZITHROMYCIN Inactive BACTRIM DS 800-160 MG TAB [...] daily 2 BACTRIM DS 800-160 MG TAB 547170 TRIMETHOPRIM-SULFAMETHOXAZOLE Inac tive DIFLUCAN 100 MG TAB 1 tablet by mouth daily DIFLUCAN 100 MG TAB 566329 FLUCONAZOLE Inactive Advance Directives Directive Description Start [...] mg/dL Encounters Code Encounter Date Provider Facility CPT-[id number] Level 4 Est. Patient 09:14:56 CDT Tesfaye pearson MD [facility] CPT-33908 Level 4 Est. Patient 18:40:25 DIRECTOR CORPORATE COMPLIANCE Tesfaye pearson MD [facility] CPT-80014 Level 4 Est. Patient 18:13:07 DIRECTOR CORPORATE COMPLIANCE Tesfaye pearson MD [facility] CPT-57580 Level 3 Est. Patient 10:46:32 CDT Rj cotto DO [facility]-51722 Level 4 Est. Patient 20:19:25 CDT Tesfaye pearson MD [facility]-66495 Level 3 Est. Patient 09:07:31 CDT Tesfaye pearson MD [facility]-49256 Level 4 Est. Patient 13:12:56 CDT Tesfaye pearson MD [facility]-77828 Level 4 Est. Patient 21:24:55 DIRECTOR CORPORATE COMPLIANCE Tesfaye pearson MD [facility]-85229 Level 3 Est. Patient 13:45:04 DIRECTOR CORPORATE COMPLIANCE Tesfaye pearson MD [facility]-27279 Level 4 Est. Patient 13:50:45 CDT Tesfaye pearson MD [facility]-24468 Level 3 Est. Patient 10:16:10 CDT Tesfaye pearson MD [facility]-00587 Level 3 Est. Patient 16:36:07 DIRECTOR CORPORATE COMPLIANCE Kayla jameson MD [facility]-76900 Level 4 Est. Patient 16:00:14 DIRECTOR CORPORATE COMPLIANCE Tesfaye pearson MD [facility]-08298 Level 4 Est. Patient 11:02:24 DIRECTOR CORPORATE COMPLIANCE Tesfaye pearson MD [facility]-24756 Level 3 Est. Patient 20:21:43 DIRECTOR CORPORATE COMPLIANCE Kayla jameson MD [facility]-90478 Level 3 Est. Patient 13:27:28 DIRECTOR CORPORATE COMPLIANCE Kayla jameson MD [facility]-92618 Level 4 Est. Patient 15:57:17 DIRECTOR CORPORATE COMPLIANCE Tesfaye pearson MD [facility] CPT-20713 Level 3 New Patient 13:25:47 CDT Tesfaye kidd MD [facility] CPT-31487 Level 3 New Patient 17:22:21 CDT Kayla angel MD [facility] Procedures Code Procedure Name Date Entry Date Standard Desc ription CPT-33120 Foot, right, comp min 3V - XRAY USE ONLY 10:38:34 CDT CPT-G0439 Subsequent Annual Wellness Exam 13:55:04 CDT CPT-G0438 Initial Annual Wellness Exam 11:23:17 CD T CPT-J2930 Solu Medrol 125 mg (Methyl Prednisolone Sodium Succinate) 17:29:12 DIRECTOR CORPORATE COMPLIANCE CPT-82061 Abx/Therapy Injection 17:29:11 DIRECTOR CORPORATE COMPLIANCE CPT-J2930 Solu Medrol 125 mg (Methyl Prednisolone Sodium Succinate) 12:34:38 DIRECTOR CORPORATE COMPLIANCE CPT-J3420 Vitamin B12 1000mcg (Cyanocobalamin) 09:12:55 CDT CPT-J3420 Vitamin B12 1000mcg (Cyanocobalamin) 16:28:06 DIRECTOR CORPORATE COMPLIANCE CPT-92779 Venipuncture Draw Fee 08:39:53 CDT CPT-J3420 Vitamin B12 1000mcg (Cyanocobalamin) 08:46:22 CDT CPT-08828 Abx/Therapy Injection 08:46:22 CDT CPT-J3420 Vitamin B12 1000mcg (Cyanocobalamin) 08:41:26 CDT CPT-76897 Abx/Therapy Injection 08:41:26 CDT CPT-J3420 Vitamin B12 1000mcg (Cyanocobalamin) 08:57:15 CDT CPT-88777 Abx/Therapy Injection 08:57:15 CDT CPT-J3420 Vitamin B12 1000mcg (Cyanocobalamin) 10:59:03 CDT CPT-88771 Abx/Therapy Injection 10:59:03 CDT CPT-J3420 Vitamin B12 1000mcg (Cyanocobalamin) 15:05:39 CDT CPT-91765 Abx/Therapy Injection 15:05:39 CDT CPT-J3420 Vitamin B12 1000mcg (Cyanocobalamin) 13:50:45 CDT CPT-J3420 Vitamin B12 1000mcg (Cyanocobalamin) 08:48:55 CDT CPT-68240 Abx/Therapy Injection 08:48:55 CDT CPT-J3420 Vitamin B12 1000mcg (Cyanocobalamin) 09:14:54 CDT CPT-93406 Abx/Therapy Injection 09:14:54 CDT CPT-J3420 Vitamin B12 1000mcg (Cyanocobalamin) 09:06:06 CDT CPT-88469 Abx/Therapy Injection 09:06:06 CDT CPT-J3420 Vitamin B12 1000mcg (Cyanocobalamin) 09:49:14 CDT CPT-09700 Abx/Therapy Injection 09:49:14 CDT CPT-J3420 Vitamin B12 1000mcg (Cyanocobalamin) 09:10:30 DIRECTOR CORPORATE COMPLIANCE CPT-63573 Abx/Therapy Injection 09:10:30 DIRECTOR CORPORATE COMPLIANCE CPT-J3420 Vitamin B12 1000mcg (Cyanocobalamin) 09:11:07 DIRECTOR CORPORATE COMPLIANCE CPT-63354 Abx/Therapy Injection 09:11:07 DIRECTOR CORPORATE COMPLIANCE CPT-J3420 Vitamin B12 1000mcg (Cyanocobalamin) 09:57:03 DIRECTOR CORPORATE COMPLIANCE CPT-06062 Abx/Therapy Injection 09:57:03 DIRECTOR CORPORATE COMPLIANCE CPT-J3420 Vitamin B12 1000mcg (Cyanocobalamin) 09:23:21 DIRECTOR CORPORATE COMPLIANCE CPT-34819 Abx/Therapy Injection 09:23:21 DIRECTOR CORPORATE COMPLIANCE CPT-10475 Urine Dip (Floor Use Only) 20:21:44 DIRECTOR CORPORATE COMPLIANCE 201 02/12/11 CPT-28197 UA Dip Auto (Floor Use Only) 10:04:39 DIRECTOR CORPORATE COMPLIANCE 2 CPT-11004 Urine Dip (Floor Use Only) 13:27:28 DIRECTOR CORPORATE COMPLIANCE 201 02/12/01 CPT-36454 Bladder Scan 13:27:28 DIRECTOR CORPORATE COMPLIANCE CPT-64779 Abd single AP View 14:30:51 DIRECTOR CORPORATE COMPLIANCE CPT-OV Office Visit 10:15:43 CDT CPT-13657 Urine Dip (Floor Use Only) 17:22:21 CDT 201 02/09/02 CPT-50444 Bladder Scan 17:22:21 CDT
--- OUTSIDE RECORDS SUMMARY | 2020-05-05 11:52 | XMS REPORT | Clinical Summary ---
Author Author Tlaon, Jeri Wood Organization [employer] Address Unknown Phone Unavailable Allergies, Adverse Reactions, [...] ORAL CAPS 1 tablet daily LACTOBACI LLUS [id number] Active Edith Burch MD Active CYMBALTA 60 MG CPEP Take 1 tablet by mouth daily 1 DULOXETINE HCL 89824997340 No Longer Active Edith Burch MD Active CYMBALTA 30 MG CPEP 1 cap by mouth daily with 60mg 201 05/09/11 DULOXETINE HCL 27704444839 No Longer Active Edith Burch MD Activ e FISH OIL 1000 MG CPDR 1 pill by mouth daily for cholesterol 04/18 OMEGA- 3 FATTY ACIDS 36106052410 Active Rosa Jaffe LPN Acti ve RED YEAST RICE 600 MG CAPS 1 pill by mouth daily RED YEAST RICE EXTRACT 74515493633 Active Rosa Jaffe LPN Activ e VENLAFAXINE HCL 37.5 MG TABS 1/4 tab po titrating up to full dose 2 VENLAFAXINE HCL 44476501421 Active Chelsea Mendoza e DIFLUCAN 100 MG TAB 1 tablet by mouth daily FLU CONAZOLE 27352450329 No Longer Active Tesfaye Sherman MD Active BACTRIM DS 800-160 MG TAB 1 tab by mouth twice daily 2 TRIMETHOPRIM-SULFAMETHOXAZOLE 67050322363 No Longer Active Tesfaye Sherman MD Active BACTRIM DS 800-160 MG TAB 1 tab by mouth twice daily 2 TRIMETHOPRIM-SULFAMETHOXAZOLE 41749697050 No Longer Active Tesfaye Sherman MD Active DIFLUCAN 150 MG TAB 1 tablet by mouth daily FLU CONAZOLE 31281049741 No Longer Active Tesfaye Sherman MD Active BACTRIM DS 800-160 MG TAB 1 tab by mouth twice daily 2 TRIMETHOPRIM-SULFAMETHOXAZOLE 89708446667 No Longer Active Tesfaye Sherman MD Active ROPINIROLE HCL 0.25 MG ORAL TABS 1 TAB PO Q HS ROPINIROLE HCL 10731130102 Active Tesfaye Sherman MD Active CEFTIN 250 MG TAB 1 tablet twice daily x 7 days 11/19 CEFUROXIME AXETIL 03366269553 No Longer Active Tesfaye Sherman MD Acti ve DIFLUCAN 100 MG TABS 1 tablet by mouth every other day for 2 dos es FLUCONAZOLE 95671562159 No Longer Active Tesfaye Sherman MD Active DIFLUCAN 100 MG TAB 1 tablet by mouth daily X 3 DAYS 2 FLUCONAZOLE 14726642398 No Longer Active Rj Moss DO Active MIRTAZAPINE 15 MG ORAL TABS 1/2 tab by mouth at bedtime. MIRTAZAPINE 72956770552 No Longer Active Tesfaye Sherman MD Acti ve BACTRIM DS 800-160 MG TAB 1 tab by mouth twice daily 2 TRIMETHOPRIM-SULFAMETHOXAZOLE 56458328044 No Longer Active Tesfaye Sherman MD Active PRAMIPEXOLE DIHYDROCHLORIDE 0.125 MG ORAL TABS take 1 tablet po qhs for restless leg syndrome. PRAMIPEXOLE DIHYDROCHLORIDE 73224301774 No Longer Active Tesfaye Sherman MD Active MAGNESIUM 400 MG ORAL TABS 1 tab po daily MAGNESI UM 16357280956 Active Chelsea Barba APRN Active SUDAFED 24 HOUR 240 MG ORAL HY01L-GZG 1 tab po daily PSEUDOEPHEDRINE HCL 16497962542 Active Chelsea Barba APRN A ctive CETIRIZINE HCL 5 MG TABS Take 1 tablet by mouth daily CETIRIZINE HCL 96977236832 No Longer Active Chelsea Barba APRN Acti ve TRIMETHOPRIM 100 MG TABS 1/2 qd TRIMETHOPRIM 47493635453 No Longer Active Chelsea Barba APRN Active BACTRIM DS 800-160 MG TAB 1 tab by mouth twice daily 2 TRIMETHOPRIM-SULFAMETHOXAZOLE 74292735716 No Longer Active Tesfaye Sherman MD Active BACTRIM DS 800-160 MG TAB 1 tab by mouth twice daily X 10 DAYS 2 TRIMETHOPRIM-SULFAMETHOXAZOLE 50605907465 No Longer Active Umer Sherman MD Active AMOXICILLIN 500 MG CAPS 1 cap by mouth three times a day AMOXICILLIN 91673717135 No Longer Active Adriana Arredondo Active MECLIZINE HCL 25 MG TAB one tab po qday prn dizziness MECLIZINE HCL 84249069565 Active Tesfaye Sherman MD Active B-12 1000 MCG ORAL LOZG 1 tab po daily CYANOCOBAL STANTON 06986087077 Active Tesfaye Sherman MD Active VITAMIN D3 2000 UNIT TABS 1 daily, for vitamin D deficiency 2014 CHOLECALCIFEROL 47104521919 No Longer Active Tesfaye Sherman MD Active TIZANIDINE HCL 2 MG TABS take 1-2 tablet by mouth ev at bedtime at 9pm PRN TIZANIDINE HCL 12652788638 Active Tesfaye Owusu Active ZITHROMAX 250 MG TAB 2 po today, then 1 po q days 2-5 AZITHROMYCIN 15612202095 No Longer Active Tesfaye Sherman MD Acti ve BACTRIM DS 800-160 MG TAB 1 tab by mouth twice daily 2 TRIMETHOPRIM-SULFAMETHOXAZOLE 85509410562 No Longer Active Tesfaye Sherman MD Active PRELIEF 340 (65-50) MG (CA-P) ORAL TABS CALCIUM GLYCEROPHOSPHATE 63135188418 Active Tesfaye Sherman MD Active [facility] NIACIN FLUSH FREE 400-100 MG CAPS 1 daily NIACIN-INOSITOL 49675096630 Active Kayla Cooper MD Active DIFLUCAN 150 MG TABS 1 qd FLUCONAZOLE 18920 904903 No Longer Active Kayla Cooper MD Active FLUTICASONE PROPIONATE 50 MCG/ACT SUSP 1 spray each nostril twice daily FLUTICASONE PROPIONATE 96564948031 Active Tesfaye armenta MD Active LOVASTATIN 20 MG TABS Take 1 tablet by mouth daily LOVASTATIN 42728907997 No Longer Active Tesfaye Sherman MD Active MELOXICAM 7.5 MG TABS 1 tablet by mouth daily M ELOXICAM 88381289770 No Longer Active Tesfaye Sherman MD Active GABAPENTIN 300 MG CAPS Take two tablets by mouth every evening GABAPENTIN 82796835050 No Longer Active Edith Burch MD Active OXYCODONE-ACETAMINOPHEN 5-325 MG TABS Take one tablet by mouth every 6 hours as needed. Max 12 tabs/day as needed OXYCODONE-ACETAMINOP HEN 84634559102 Active Tesfaye Sherman MD Active CLONAZEPAM 0.5 MG TABS Take one tablet in the morning and 1.5 table t at 7pm CLONAZEPAM 86585162533 Active Kayla Cooper MD Active BACLOFEN 10 MG TABS Take one tablet by mouth three times a day BACLOFEN 58636917359 Active Kayla Cooper MD Active GABAPENTIN 300 MG CAPS Take two tablets by mouth every evening GABAPENTIN 300 MG CAPS 832842 GABAPENTIN Inactive MELOXICAM 7.5 MG TABS 1 tablet by mouth daily MELOXICAM 7.5 MG TABS 688303 MELOXICAM Inactive LOVASTATIN 20 MG TABS Take 1 tablet by mouth daily 201 02/12/20 LOVASTATIN 20 MG TABS 961626 LOVASTATIN Inactive DIFLUCAN 150 MG TABS 1 qd DIFLUCAN 150 MG T ABS 796853 FLUCONAZOLE Inactive VITAMIN D3 2000 UNIT TABS 1 daily, for vitamin D deficiency 2014 VITAMIN D3 2000 UNIT TABS CHOLECALCIFEROL Inacti ve AMOXICILLIN 500 MG CAPS 1 cap by mouth three times a day AMOXICILLIN 500 MG CAPS 280889 AMOXICILLIN Inactive BACTRIM DS 800-160 MG TAB 1 tab by mouth twice daily X 10 DAYS 2 BACTRIM DS 800-160 MG TAB 19830105 TRIMETHOPRIM-SULFAMETH OXAZOLE Inactive TRIMETHOPRIM 100 MG TABS 1/2 qd TRIMETHOPRI M 100 MG TABS 19830102 TRIMETHOPRIM Inactive CETIRIZINE HCL 5 MG TABS Take 1 tablet by mouth daily CETIRIZINE HCL 5 MG TABS 4397544 CETIRIZINE HCL Inactive PRAMIPEXOLE DIHYDROCHLORIDE 0.125 MG ORAL TABS take 1 tablet po qhs for restless leg syndrome. PRAMIPEXOLE DIHYDROC HLORIDE 0.125 MG ORAL TABS 407677 PRAMIPEXOLE DIHYDROCHLORIDE Inactive MIRTAZAPINE 15 MG ORAL TABS 1/2 tab by mouth at bedtime. MIRTAZAPINE 15 MG ORAL TABS 693499 MIRTAZAPINE Inactive DIFLUCAN 100 MG TAB 1 tablet by mouth daily X 3 DAYS 2 DIFLUCAN 100 MG TAB 618770 FLUCONAZOLE Inactive DIFLUCAN 100 MG TABS 1 tablet by mouth every other day for 2 dos es DIFLUCAN 100 MG TABS 523380 FLUCONAZOLE Inactive CEFTIN 250 MG TAB 1 tablet twice daily x 7 days 11/19 CEFTIN 250 MG TAB 270978 CEFUROXIME AXETIL Inactive CYMBALTA 30 MG CPEP 1 cap by mouth daily with 60mg 201 05/09/11 CYMBALTA 30 MG CPEP 029586 DULOXETINE HCL Inactive CYMBALTA 60 MG CPEP Take 1 tablet by mouth daily 05/13 CYMBALTA 60 MG CPEP 523695 DULOXETINE HCL Inactive BACTRIM DS 800-160 MG TAB 1 tab by mouth twice daily 2 BACTRIM DS 800-160 MG TAB 19830105 TRIMETHOPRIM-SULFAMETHOXAZOLE Inac tive ZITHROMAX 250 MG TAB 2 po today, then 1 po q days 2-5 ZITHROMAX 250 MG TAB 7268667 AZITHROMYCIN Inactive BACTRIM DS 800-160 MG TAB [...] by mouth daily DIFLUCAN 100 MG TAB 677092 FLUCONAZOLE Inactive Advance Directives Directive Description Start Date PERMISSION TO SHARE DISCUSSED WITH PATIENT -- NO DECISION MADE Vital Signs Date Name Value Unit Range Description blood pressure, diastolic - 8462-4 91 mm[Hg] [...] ... - Chemistry sodium, serum 144 mmol/L 896-516 8872/06/14 carbon dioxide, venous blood 29.4 mmol/L 21.0-32 .0 potassium, serum 4.4 mmol/L 3.5-5.2 chloride, serum 108 mmol/L 98-107 blood glucose 100 mg/dL 65-110 urea nitrogen, blood 9 mg/dL 7-18 creatinine, serum 0.67 mg/dL 0.55-1.30 alanine aminotransferase (SGPT), serum 24 U/L 12-78 aspartate aminotransferase (SGOT), serum 15 U/L 15-37 calcium, serum 9.3 mg/dL 8.5-10.1 bilirubin, serum, total 0.50 mg/dL 0.00-1.00 cholesterol, serum 268 mg/dL 343-053 5848/06/14 triglyceride, serum, fasting 126 mg/dL 30-200 HDL [...] mg/dL Encounters Code Encounter Date Provider Facility CPT-18671 Level 4 Est. Patient 13:24:25 CDT Stephanie MERCADO [facility] CPT-32619 Level 4 Est. Patient 09:14:56 CDT Tesfaye pearson MD [facility] CPT-93523 Level 4 Est. Patient 18:40:25 [employer] Tesfaye pearson MD [facility] CPT-17764 Level 4 Est. Patient 18:13:07 [employer]IAN Tesfaye pearson MD [facility] CPT-40282 Level 3 Est. Patient 10:46:32 CDT Rj cotto DO [facility] CPT-73667 Level 4 Est. Patient 20:19:25 CDT Tesfaye pearson MD [facility] CPT-58027 Level 3 Est. Patient 09:07:31 CDT Tesfaye pearson MD [facility] CPT-04058 Level 4 Est. Patient 13:12:56 CDT Tesfaye pearson MD [facility] CPT-04125 Level 4 Est. Patient 21:24:55 [employer]RICIAN Tesfaye pearson MD [facility] CPT-48986 Level 3 Est. Patient 13:45:04 L[employer] E[employer]RICIAN Tesfaye pearson MD [facility] CPT-38510 Level 4 Est. Patient 13:50:45 CDT Tesfaye pearson MD [facility] CPT-19142 Level 3 Est. Patient 10:16:10 CDT Tesfaye pearson MD [facility] CPT-48302 Level 3 Est. Patient 16:36:07 [employer] E[employer]RICIAN Kayla jameson MD [facility]-04437 Level 4 Est. Patient 16:00:14 LIFT ELECTRICIAN Tesfaye pearson MD [facility] CPT-80162 Level 4 Est. Patient 11:02:24 L[employer] ELECTRICIAN Tesfaye pearson MD [facility] CPT-22133 Level 3 Est. Patient 20:21:43 L[employer] E[employer]RICIAN Kayla jameson MD [facility] CPT-32556 Level 3 Est. Patient 13:27:28 L[employer] E[employer]RICIAN Kayla jameson MD [facility] CPT-15143 Level 4 Est. Patient 15:57:17 LIFT ELECTRICIAN Tesfaye pearson MD [facility] CPT-40840 Level 3 New Patient 13:25:47 CDT Tesfaye kidd MD [facility] CPT-44202 Level 3 New Patient 17:22:21 CDT Kayla angel MD [facility] Procedures Code Procedure Name Date Entry Date Standard Desc ription CPT-61183 Foot, right, comp min 3V - XRAY USE ONLY 10:38:34 CDT CPT-G0439 Subsequent Annual Wellness Exam 13:55:04 CDT CPT-G0438 Initial Annual Wellness Exam 11:23:17 CD T CPT-J2930 Solu Medrol 125 mg (Methyl Prednisolone Sodium Succinate) 17:29:12 L[employer] ELECTRICIAN CPT-94880 Abx/Therapy Injection 17:29:11 LIFT ELECTRICIAN CPT-J2930 Solu Medrol 125 mg (Methyl Prednisolone Sodium Succinate) 12:34:38 LIFT ELECTRICIAN CPT-J3420 Vitamin B12 1000mcg (Cyanocobalamin) 09:12:55 CDT CPT-J3420 Vitamin B12 1000mcg (Cyanocobalamin) 16:28:06 [employer]RIC[employer] CPT-64968 Venipuncture Draw Fee 08:39:53 CDT CPT-J3420 Vitamin B12 1000mcg (Cyanocobalamin) 08:46:22 CDT CPT-32303 Abx/Therapy Injection 08:46:22 CDT CPT-J3420 Vitamin B12 1000mcg (Cyanocobalamin) 08:41:26 CDT CPT-89156 Abx/Therapy Injection 08:41:26 CDT CPT-J3420 Vitamin B12 1000mcg (Cyanocobalamin) 08:57:15 CDT CPT-87776 Abx/Therapy Injection 08:57:15 CDT CPT-J3420 Vitamin B12 1000mcg (Cyanocobalamin) 10:59:03 CDT CPT-49319 Abx/Therapy Injection 10:59:03 CDT CPT-J3420 Vitamin B12 1000mcg (Cyanocobalamin) 15:05:39 CDT CPT-70609 Abx/Therapy Injection 15:05:39 CDT CPT-J3420 Vitamin B12 1000mcg (Cyanocobalamin) 13:50:45 CDT CPT-J3420 Vitamin B12 1000mcg (Cyanocobalamin) 08:48:55 CDT CPT-31708 Abx/Therapy Injection 08:48:55 CDT CPT-J3420 Vitamin B12 1000mcg (Cyanocobalamin) 09:14:54 CDT CPT-46076 Abx/Therapy Injection 09:14:54 CDT CPT-J3420 Vitamin B12 1000mcg (Cyanocobalamin) 09:06:06 CDT CPT-49230 Abx/Therapy Injection 09:06:06 CDT CPT-J3420 Vitamin B12 1000mcg (Cyanocobalamin) 09:49:14 CDT CPT-07510 Abx/Therapy Injection 09:49:14 CDT CPT-J3420 Vitamin B12 1000mcg (Cyanocobalamin) 09:10:30 LIFT ELECTRICIAN CPT-08283 Abx/Therapy Injection 09:10:30 LIFT ELECTRICIAN CPT-J3420 Vitamin B12 1000mcg (Cyanocobalamin) 09:11:07 LIFT ELECTRICIAN CPT-94950 Abx/Therapy Injection 09:11:07 LIFT ELECTRICIAN CPT-J3420 Vitamin B12 1000mcg (Cyanocobalamin) 09:57:03 LIFT ELECTRICIAN CPT-48674 Abx/Therapy Injection 09:57:03 LIFT ELECTRICIAN CPT-J3420 Vitamin B12 1000mcg (Cyanocobalamin) 09:23:21 LIFT ELECTRICIAN CPT-39550 Abx/Therapy Injection 09:23:21 LIFT ELECTRICIAN CPT-83480 Urine Dip (Floor Use Only) 20:21:44 LIFT ELECTRICIAN 201 02/12/11 CPT-43692 UA Dip Auto (Floor Use Only) 10:04:39 LIFT ELECTRICIAN 2 CPT-63590 Urine Dip (Floor Use Only) 13:27:28 LIFT ELECTRICIAN 201 02/12/01 CPT-58945 Bladder Scan 13:27:28 LIFT ELECTRICIAN CPT-59889 Abd single AP View 14:30:51 LIFT ELECTRICIAN CPT-OV Office Visit 10:15:43 CDT CPT-67340 Urine Dip (Floor Use Only) 17:22:21 CDT 201 02/09/02 CPT-36145 Bladder Scan 17:22:21 CDT
--- OUTSIDE RECORDS SUMMARY | 2020-05-05 11:52 | XMS REPORT | Clinical Summary ---
Author Author Talon, Jeri Wood Organization [employer] Address Unknown Phone Unavailable Allergies, Adverse Reactions, [...] MD NAPROXEN Critical Active Kayla guadarrama MD BENADRYL Critical Active Kayla tate MD ATIVAN Critical [...] Resolved Wilner Sherman MD Routine gynecological examination WELL WOMAN EXAMINATION V72.31 Active Edith schofield [...] malaise and fatigue Sinusitis 461.9 Active Tesfaye Sehrman MD Acute sinusitis, unspecified Interstitial Cystitis 595.1 Active Kayla richmond MD Chronic interstitial cystitis Preventive health care V70.0 Resolved Tesfaye Sherman MD Routine general medical examination at [facility] acility Sinusitis 461.9 Resolved Tesfaye Sherman [...] 19-24, adult BMI 23-23.9 Refinement León Mariee JESS Body Mass Index between 19-24, adult BMI 22-22.9 Refinement Tesfaye Sherman MD Body Mass Index between 19-24, adult BMI 23-23.9 Refinement Tesfaye Sherman MD Body Mass Index between 19-24, adult BMI 24-24.9 Refinement Tesfaye Sherman MD Body Mass Index between 19-24, adult BMI 25-25.9 Refinement Tesfaye Sherman MD Body Mass Index [...] Tesfaye Sherman MD Dysuria 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 Active Tesfaye Sherman MD Long-term (current) drug use Yeast infection 112.9 Inactive Tesfaye Sherman MD Candidiasis of unspecified site Upper respiratory infection 465.9 Inactive Tesfaye Sherman MD Acute upper respiratory infections of un specified site Lower extremity edema, bilateral 782.3 Active 201 07/07/09 León Kodi POLITICAL ANALYST Edema Peripheral neuropathy 356.9 Active Tesfaye lamb MD Unspecified hereditary and idiopathic peripheral neuropathy Restless leg syndrome 333.94 Active Tesfaye lamb MD Restless legs syndrome (RLS) Overweight (BMI 25-29.9) Resolved Tesfaye Sherman MD Overweight Peripheral edema 782.3 Active Tesfaye Sherman MD Edema FH Depression ICD-V17.0 Inactive Tesfaye Sherman MD FH Diabetes ICD-V18.0 Inactive Tesfaye Sherman MD 20 22/12/06 Preventive health care ICD-V70.0 Inactive Wilner Sherman [...] Body Mass Index 20.0-20.9 Adult Eldon Shah [facility] Dysuria ICD-788.1 Inactive Tesfaye Sherman MD 201 07/05/07 Yeast infection ICD-112.9 Inactive Tesfaye lamb MD Upper respiratory infection ICD-465.9 Inactive Tesfaye Sherman MD Overweight (BMI 25-29.9) Inactive Adriana Arredondo [facility] Medication List Medication Instructions Start Date Stop Date Generic Name NDC Status Provider Patient Instruction AMITRIPTYLINE HCL 10 MG ORAL TABLET take 1 tab po qhs for neurop athy AMITRIPTYLINE HCL 55961470446 Active Tesfaye Sherman MD Active FUROSEMIDE 20 MG ORAL TABLET take 1/2 to 1 tablet by mouth d aily prn swelling FUROSEMIDE 25466247754 Active Tesfaye Sherman MD Active FENOFIBRATE 145 MG ORAL TABLET Take 1 tablet by mouth once daily 20 23/12/19 FENOFIBRATE 37354345055 Active Tesfaye Sherman MD Active PRAMIPEXOLE DIHYDROCHLORIDE 0.75 MG ORAL TABLET take 1 tab po qhs for restless leg syndrome. PRAMIPEXOLE DIHYDROCHLORIDE 35861275828 Acti ve Tesfaye Sherman MD Active DIFLUCAN 100 MG ORAL TABLET 1 tablet by mouth daily 20 23/12/05 FLUCONAZOLE 40110402474 No Longer Active Tesfaye Sherman MD Acti ve [facility] NIACIN FLUSH FREE 400-100 MG ORAL CAPSULE 1 daily NIACIN-INOSITOL 05375876968 No Longer Active Tesfaye Sherman MD A ctive FISH OIL 1000 MG ORAL CAPSULE DELAYED RELEASE 1 pill b y mouth daily for cholesterol OMEGA-3 FATTY ACIDS 33686875970 No Longe r Active Tesfaye Sherman MD Active UNISOM SLEEPMELTS 25 MG ORAL TABLET DISINTEGRATING 1.5 po q hs DIPHENHYDRAMINE HCL (SLEEP) 85507741871 No Longer Active Venkata Sherman MD Active PREDNISONE 20 MG ORAL TABLET 1 tab twice daily for 3 d ay, then one daily for three days PREDNISONE 15059236299 No Longer Active Tesfaye Sherman MD Active BACLOFEN 10 MG ORAL TABLET Take one tablet by mouth three times a day BACLOFEN 71600071221 No Longer Active Tesfaye Sherman MD Active LIDOCAINE 4 % EXTERNAL CREAM Apply to back prn pain LIDOCAINE 94239066753 Active Tesfaye Sherman MD Active TIZANIDINE HCL 2 MG ORAL TABLET 2 Mg in the AM and 6mg q hs 07/05 TIZANIDINE HCL 13685716466 Active Tesfaye Sherman MD Active HYDROXYZINE HCL 25 MG TABS TAKE 1 TABLET BY MOUTH AT B EDTIME NEEDED FOR SLEEP HYDROXYZINE HCL 16303388718 Active JOSHUA Lindsay Active FLUCONAZOLE 100 MG ORAL TABLET 1 by mouth daily for yeast infect ion FLUCONAZOLE 99836884936 No Longer Active Laurence Dominguez Acti ve ZITHROMAX 250 MG ORAL TABLET 2 po today, then 1 po q days 2-5 20 21/08/28 AZITHROMYCIN 08038006840 No Longer Active Tesfaye Sherman MD Active DIFLUCAN 100 MG ORAL TABLET 1 tablet by mouth daily 20 21/08/28 FLUCONAZOLE 85201528704 No Longer Active Tesfaye Sherman MD Acti ve HYDROXYZINE HCL 25 MG ORAL TABLET 1 tab po at HS prn sleep 08/02 HYDROXYZINE HCL 09424855028 No Longer Active Tesfaye Sherman MD Active MIRAPEX 0.5 MG ORAL TABLET 1 tablet at night for restless leg. 2018 PRAMIPEXOLE DIHYDROCHLORIDE 20176051773 Active Laurence Dominguez Active MIRAPEX 0.25 MG ORAL TABLET 1 tablet by mouth at night for r estless leg PRAMIPEXOLE DIHYDROCHLORIDE 64780636336 No Longer Act trent Laurence Dominguez Active MIRAPEX 0.125 MG ORAL TABLET 1 po nightly PRAMIPEXOLE DIHYDROCHLORIDE 70372887769 No Longer Active Laurenceyohana Dominguez Active ROPINIROLE HCL 2 MG ORAL TABLET 1 po at hs ROPI NIROLE HCL 78698113403 No Longer Active Laurence Raida Active ROPINIROLE HCL 1 MG ORAL TABLET 1 tab po q hs ROPINIROLE HCL 88742909233 No Longer Active Laurence Dominguez Active ROPINIROLE HCL 0.5 MG ORAL TABLET 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 ROPINIROLE HCL 00001212705 No Longer Active MARCUS Panchal Active ROPINIROLE HCL 0.25 MG ORAL TABLET 1 TAB PO Q HS 05/31 ROPINIROLE HCL 77207735706 No Longer Active Tesfaye Sherman MD Ac tive PREDNISONE 20 MG ORAL TABLET 1 tab twice daily for 3 d ay, then one daily for three days PREDNISONE 60728121609 No Longer Active Tesfaye Sherman MD Active AMITRIPTYLINE HCL 50 MG ORAL TABLET 1 po q hs for sleep AMITRIPTYLINE HCL 87990241995 No Longer Active Tesfaye Sherman MD Active AMITRIPTYLINE HCL 10 MG ORAL TABLET 1 tablet nightly by mout h for neuropathy AMITRIPTYLINE HCL 39872653365 No Longer Active MARCUS Stapleton Active DIFLUCAN 100 MG ORAL TABLET 1 tablet by mouth daily 21/03/11 FLUCONAZOLE 62988282971 No Longer Active Tesfaye Sherman MD Acti ve BACTRIM DS 800-160 MG ORAL TABLET 1 tab by mouth twice daily 201 07/08/06 TRIMETHOPRIM-SULFAMETHOXAZOLE 84593293064 No Longer Active Umer Sherman MD Active CLARITIN 10 MG ORAL TABLET Take one by mouth daily LORATADINE 36696039739 Active Tesfaye Sherman MD Active SUDAFED 12 HOUR 120 MG ORAL TABLET EXTENDED RELEASE 12 HOUR 1 pill twice daily if needed for congestion PSEUDOEPHEDRINE HCL 943055185 13 No Longer Active Tesfaye Sherman MD Active GABAPENTIN 300 MG ORAL CAPSULE 1 po daily GABAP ENTIN 26106797257 No Longer Active Tesfaye Sherman MD Active HYDROCHLOROTHIAZIDE 12.5 MG ORAL CAPSULE 1 pill by mough daily 2 HYDROCHLOROTHIAZIDE 63789466846 No Longer Active Leónkash Mariee APRN Active VENLAFAXINE HCL 75 MG ORAL TABLET 1 am 1 at noon 201 07/07/09 VENLAFAXINE HCL 29597359942 No Longer Active León Mariee APRN Act trnet DIFLUCAN 100 MG ORAL TABLET 1 tablet by mouth daily 20 19/02/09 FLUCONAZOLE 64368312509 No Longer Active León Kodi POLITICAL ANALYST Active DIFLUCAN 100 MG ORAL TABLET 1 tablet by mouth daily 20 19/02/09 FLUCONAZOLE 66686201123 No Longer Active León Kodi POLITICAL ANALYST Active OXYCODONE-ACETAMINOPHEN 5-325 MG ORAL TABLET Take one tablet by mouth every 6 hours 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 Use sparingly OXYCODONE-ACETAMINOPHEN 35666168084 Active Tesfaye villar MD Active CLONAZEPAM 0.5 MG ORAL TABLET Take 1/2 qam, and 1/2 qpm CLONAZEPAM 28054430122 Active Tesfaye Sherman MD Active PRELIEF 340 (65-50) MG (CA-P) ORAL TABLET CALCIUM GLYCEROPHOSPHATE 07577454906 No Longer Active Tesfaye Sherman MD Active SUDAFED 24 HOUR 240 MG ORAL TABLET EXTENDED RELEASE 24 HOUR 1 tab po daily PSEUDOEPHEDRINE HCL 83141221517 No Longer Active Raul Sherman MD Active RED YEAST RICE 600 MG ORAL CAPSULE 1 pill by mouth daily RED YEAST RICE EXTRACT 64522135782 No Longer Active Tesfaye Sherman MD Active REPHRESH PRO-B ORAL CAPSULE 1 tablet daily LACT OBACILLUS 70189264486 No Longer Active Tesfaye Sherman MD Active ABILIFY 2 MG ORAL TABLET 1 by mouth daily. MARIA ELENA PIPRAZOLE 34793426502 Active Tesfaye Sherman MD Active CYMBALTA 60 MG ORAL CAPSULE DELAYED RELEASE PARTICLES 1 cap by mouth daily for pain DULOXETINE HCL 45167784733 Active MARCUS Lindsay Active DIFLUCAN 100 MG ORAL TABLET 1 tablet by mouth daily 20 20/06/06 FLUCONAZOLE 23991346446 No Longer Active Tesfaye Sherman MD Acti ve PREDNISONE 20 MG ORAL TABLET 1 tablet by mouth twice d aily for 3 days, then 1 tablet daily for 3 days PREDNISONE 48623679795 No L onger Active Tesfaye Sherman MD Active BACTRIM DS 800-160 MG ORAL TABLET 1 tab by mouth twice daily 201 06/09/02 TRIMETHOPRIM-SULFAMETHOXAZOLE 58530090989 No Longer Active A mirna Dominguez Active DIFLUCAN 100 MG ORAL TABLET 1 tablet by mouth daily 20 20/05/01 FLUCONAZOLE 18785999431 No Longer Active Tesfaye Sherman MD Acti ve ZITHROMAX 250 MG ORAL TABLET 2 po today, then 1 po q days 2-5 20 20/04/28 AZITHROMYCIN 71258082483 No Longer Active Tesfaye Sherman MD Active MECLIZINE HCL 25 MG ORAL TABLET one tab po qday prn dizziness 20 17/09/06 MECLIZINE HCL 69207366285 No Longer Active Tesfaye Sherman MD Active PROAIR HFA 108 (90 BASE) MCG/ACT INHALATION AEROSOL SO LUTION 1 puff every 6 hours as needed ALBUTEROL SULFATE 95702631716 No Long er Active Tesfaye Sherman MD Active PREDNISONE 20 MG ORAL TABLET 1 tab twice daily for 3 d ay, then one daily for three days PREDNISONE 52490755732 No Longer Active Tesfaye Sherman MD Active MECLIZINE HCL 25 MG ORAL TABLET one 4 times a day as needed for dizziness MECLIZINE HCL 25605858350 Active Tesfaye Sherman MD Active AMOXICILLIN 500 MG ORAL CAPSULE 1 cap by mouth three times a day AMOXICILLIN 80502369907 No Longer Active Laurence Dominguez Acti ve DIFLUCAN 100 MG ORAL TABLET 1 tablet by mouth daily 19/08/26 FLUCONAZOLE 32520723835 No Longer Active Tesfaye Sherman MD Acti ve BACTRIM DS 800-160 MG ORAL TABLET 1 tab by mouth twice daily 201 05/10/28 TRIMETHOPRIM-SULFAMETHOXAZOLE 65628200199 No Longer Active Fer Dominguez Active FOSAMAX 70 MG ORAL TABLET 1 po qweek. Take 30min prio r to first food/drink. Avoid lying down x 1 hour. ALENDRONATE SODIUM 33479602 144 No Longer Active Laurence Dominguez Active CYMBALTA 60 MG ORAL CAPSULE DELAYED RELEASE PARTICLES Take 1 tablet by mouth daily DULOXETINE HCL 27017305620 No Longer Active Edith Burch MD Active CYMBALTA 30 MG ORAL CAPSULE DELAYED RELEASE PARTICLES 1 cap by mouth daily with 60mg DULOXETINE HCL 24431054324 No Longer Active Jordan Burch MD Active DIFLUCAN 100 MG ORAL TABLET 1 tablet by mouth daily 20 19/03/05 FLUCONAZOLE 50555635591 No Longer Active Tesfaye Sherman MD Acti ve BACTRIM DS 800-160 MG ORAL TABLET 1 tab by mouth twice daily 201 05/06/28 TRIMETHOPRIM-SULFAMETHOXAZOLE 96782603067 No Longer Active D patricia Sherman MD Active BACTRIM DS 800-160 MG ORAL TABLET 1 tab by mouth twice daily 201 05/04/15 TRIMETHOPRIM-SULFAMETHOXAZOLE 81794011824 No Longer Active Umer Sherman MD Active DIFLUCAN 150 MG ORAL TABLET 1 tablet by mouth daily 20 18/09/20 FLUCONAZOLE 83989410837 No Longer Active Tesfaye Sherman MD Acti ve BACTRIM DS 800-160 MG ORAL TABLET 1 tab by mouth twice daily 201 04/13/17 TRIMETHOPRIM-SULFAMETHOXAZOLE 28630833343 No Longer Active Umer Sherman MD Active CEFTIN 250 MG ORAL TABLET 1 tablet twice daily x 7 days CEFUROXIME AXETIL 11483029350 No Longer Active Tesfaye Sherman MD Active DIFLUCAN 100 MG ORAL TABLET 1 tablet by mouth every other da y for 2 doses FLUCONAZOLE 26615232600 No Longer Active Tesfaye barron MD Active DIFLUCAN 100 MG ORAL TABLET 1 tablet by mouth daily X 3 DAYS 201 04/09/01 FLUCONAZOLE 28042435626 No Longer Active Rj Lyons tive MIRTAZAPINE 15 MG ORAL TABLET 1/2 tab by mouth at bedtime. 03/13 MIRTAZAPINE 32307964743 No Longer Active Tesfaye Sherman MD Active BACTRIM DS 800-160 MG ORAL TABLET 1 tab by mouth twice daily 201 04/09/01 TRIMETHOPRIM-SULFAMETHOXAZOLE 88182581601 No Longer Active Umer Sherman MD Active PRAMIPEXOLE DIHYDROCHLORIDE 0.125 MG ORAL TABLET take 1 tablet po qhs for restless leg syndrome. PRAMIPEXOLE DIHYDROCHLORI DE 68174591033 No Longer Active Tesfaye Sherman MD Active MAGNESIUM 400 MG ORAL TABLET 1 tab po daily MAGNE SIUM 80191677482 Active Chelsea Cardenas APRN Active CETIRIZINE HCL 5 MG ORAL TABLET Take 1 tablet by mouth daily CETIRIZINE HCL 22629353985 No Longer Active Chelsea Cardenas APRN Activ e TRIMETHOPRIM 100 MG ORAL TABLET 1/2 qd TRIM ETHOPRIM 11145669267 No Longer Active Chelsea Cardenas APRN Active BACTRIM DS 800-160 MG ORAL TABLET 1 tab by mouth twice daily 201 04/04/11 TRIMETHOPRIM-SULFAMETHOXAZOLE 65403334350 No Longer Active Umer Sherman MD Active BACTRIM DS 800-160 MG ORAL TABLET 1 tab by mouth twice daily X 10 DAYS TRIMETHOPRIM-SULFAMETHOXAZOLE 18999785877 No Longer Active Tesfaye Sherman MD Active AMOXICILLIN 500 MG ORAL CAPSULE 1 cap by mouth three times a day AMOXICILLIN 03197389387 No Longer Active Adriana Arredondo, A A ctive B-12 1000 MCG ORAL LOZENGE 1 tab po daily CYANO COBALAMIN 55759755035 Active Tesfaye Sherman MD Active VITAMIN D3 2000 UNIT ORAL TABLET 1 daily, for vitamin D deficien cy CHOLECALCIFEROL 23263091167 No Longer Active Tesfaye Sherman MD Active ZITHROMAX 250 MG ORAL TABLET 2 po today, then 1 po q days 2-5 20 15/02/10 AZITHROMYCIN 01196702540 No Longer Active Tesfaye Sherman MD Active BACTRIM DS 800-160 MG ORAL TABLET 1 tab by mouth twice daily 201 03/03/23 TRIMETHOPRIM-SULFAMETHOXAZOLE 80210920111 No Longer Active Umer Sherman MD Active DIFLUCAN 150 MG ORAL TABLET 1 qd FLUCONAZOL E 04489823508 No Longer Active Kayla Cooper MD Active FLUTICASONE PROPIONATE 50 MCG/ACT NASAL SUSPENSION 1 spray each nostril twice daily FLUTICASONE PROPIONATE 96429170745 Active Umer Sherman MD Active LOVASTATIN 20 MG ORAL TABLET Take 1 tablet by mouth daily LOVASTATIN 97424309510 No Longer Active Tesfaye Sherman MD Acti ve MELOXICAM 7.5 MG ORAL TABLET 1 tablet by mouth daily 2 MELOXICAM 61693072117 No Longer Active Tesfaye Sherman MD Acti ve GABAPENTIN 300 MG ORAL CAPSULE Take two tablets by mouth every e vening GABAPENTIN 50482176034 No Longer Active Edith [place] ctive GABAPENTIN 300 MG ORAL CAPSULE Take two tablets by mouth every e vening GABAPENTIN 300 MG ORAL CAPSULE 262115 GABAPENTIN I nactive MELOXICAM 7.5 MG ORAL TABLET 1 tablet by mouth daily 2 MELOXICAM 7.5 MG ORAL TABLET 890443 MELOXICAM Inactive LOVASTATIN 20 MG ORAL TABLET Take 1 tablet by mouth daily LOVASTATIN 20 MG ORAL TABLET 772081 LOVASTATIN Inactive DIFLUCAN 150 MG ORAL TABLET 1 qd DIFLUCAN 150 MG ORAL TABLET 085119 FLUCONAZOLE Inactive VITAMIN D3 2000 UNIT ORAL TABLET 1 daily, for vitamin D deficien cy VITAMIN D3 2000 UNIT ORAL TABLET CHOLECALCIFEROL Inactive AMOXICILLIN 500 MG ORAL CAPSULE 1 cap by mouth three times a day AMOXICILLIN 500 MG ORAL CAPSULE 555151 AMOXICILLIN Inactive BACTRIM DS 800-160 MG ORAL TABLET 1 tab by mouth twice daily X 10 DAYS BACTRIM DS 800-160 MG ORAL TABLET 407855 TRIMETHOPRIM-SULFAMETHOXAZOLE Inactive TRIMETHOPRIM 100 MG ORAL TABLET 1/2 qd 7 TRIMETHOPRIM 100 MG ORAL TABLET 635527 TRIMETHOPRIM Inactive CETIRIZINE HCL 5 MG ORAL TABLET Take 1 tablet by mouth daily CETIRIZINE HCL 5 MG ORAL TABLET 7147507 CETIRIZINE HCL Inactive PRAMIPEXOLE DIHYDROCHLORIDE 0.125 MG ORAL TABLET take 1 tablet po qhs for restless leg syndrome. PRAMIPEXOLE DIHYD ROCHLORIDE 0.125 MG ORAL TABLET 315859 PRAMIPEXOLE DIHYDROCHLORIDE Inactive MIRTAZAPINE 15 MG ORAL TABLET 1/2 tab by mouth at bedtime. 03/13 MIRTAZAPINE 15 MG ORAL TABLET 786170 MIRTAZAPINE In active DIFLUCAN 100 MG ORAL TABLET 1 tablet by mouth daily X 3 DAYS 201 04/09/01 DIFLUCAN 100 MG ORAL TABLET 172289 FLUCONAZOLE Inac tive DIFLUCAN 100 MG ORAL [...] 30 MG ORAL CAPSULE DELAYED RELEASE PARTICLES 079640 DULOXETINE HCL Inactive CYMBALTA 60 MG ORAL CAPSULE DELAYED RELEASE PARTICLES Take 1 tablet by mouth daily CYMBALTA 60 MG ORAL CAPSULE DELAYED RELEA SE PARTICLES 039047 DULOXETINE HCL Inactive FOSAMAX 70 MG ORAL TABLET 1 po qweek. Take 30min prio r to first food/drink. Avoid lying down x 1 hour. FOSAMAX 70 MG ORAL TA BLET 937999 ALENDRONATE SODIUM Inactive DIFLUCAN 100 MG ORAL TABLET 1 tablet by mouth daily 19/08/26 DIFLUCAN 100 MG ORAL TABLET 19760711 FLUCONAZOLE Inactive PREDNISONE 20 MG ORAL TABLET 1 tab twice daily for 3 d ay, then one daily for three days PREDNISONE 20 MG ORAL TABLET 564255 PREDNIS ONE Inactive PROAIR HFA 108 (90 BASE) MCG/ACT INHALATION AEROSOL SO LUTION 1 puff every 6 hours as needed PROAIR HFA 108 (90 B ASE) MCG/ACT INHALATION AEROSOL SOLUTION ALBUTEROL SULFATE Inactive MECLIZINE HCL 25 MG ORAL TABLET one tab po qday prn dizziness 20 17/09/06 MECLIZINE HCL 25 MG ORAL TABLET 781873 MECLIZINE HCL Inactive PREDNISONE 20 MG ORAL TABLET 1 tablet by mouth twice d aily for 3 days, then 1 tablet daily for 3 days PREDNISONE 20 MG ORAL TA BLET 955893 PREDNISONE Inactive DIFLUCAN 100 MG ORAL TABLET 1 tablet by mouth daily 20 20/06/06 DIFLUCAN 100 MG ORAL TABLET 946293 FLUCONAZOLE Inactive REPHRESH PRO-B ORAL CAPSULE 1 tablet daily REPHRESH PRO-B ORAL CAPSULE LACTOBACILLUS Inactive RED YEAST RICE 600 MG ORAL CAPSULE 1 pill by mouth daily RED YEAST RICE 600 MG ORAL CAPSULE 265851 RED YEAST RICE EXTRACT In active SUDAFED [...] daily 19/02/09 DIFLUCAN 100 MG ORAL TABLET 984934 FLUCONAZOLE Inactive DIFLUCAN 100 MG ORAL TABLET 1 tablet by mouth daily 19/02/09 DIFLUCAN 100 MG ORAL TABLET 630689 FLUCONAZOLE Inactive VENLAFAXINE HCL 75 MG ORAL TABLET 1 am 1/2 at noon 201 07/07/09 VENLAFAXINE HCL 75 MG ORAL TABLET 806354 VENLAFAXINE HCL Inacti ve GABAPENTIN 300 MG ORAL CAPSULE 1 po daily GABAPENTIN 300 MG ORAL CAPSULE 003004 GABAPENTIN Inactive SUDAFED 12 HOUR 120 MG ORAL TABLET EXTENDED RELEASE 12 HOUR 1 pill twice daily if needed for congestion SUDAFED 12 HOUR 120 MG ORAL TABLET EXTENDED RELEASE 12 HOUR PSEUDOEPHEDRINE HCL Inactive AMITRIPTYLINE HCL 10 MG ORAL TABLET 1 tablet nightly by mout h for neuropathy AMITRIPTYLINE HCL 10 MG ORAL TABLET 849362 AMITRIPTYLINE HCL Inactive AMITRIPTYLINE HCL 50 MG ORAL TABLET 1 po q hs for sleep AMITRIPTYLINE HCL 50 MG ORAL TABLET 546424 AMITRIPTYLINE HCL Inac tive PREDNISONE 20 MG ORAL TABLET 1 tab twice daily for 3 d ay, then one daily for three days PREDNISONE 20 MG ORAL TABLET 734603 PREDNIS ONE Inactive ROPINIROLE HCL 0.25 MG ORAL TABLET 1 TAB PO Q HS 05/31 ROPINIROLE HCL 0.25 MG ORAL TABLET 406563 ROPINIROLE HCL Inact trent ROPINIROLE HCL 0.5 MG ORAL TABLET 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 ROPINIROLE HCL 0.5 MG ORAL TABLET 050392 ROPINIR OLE HCL Inactive ROPINIROLE HCL 1 MG ORAL TABLET 1 tab po q hs ROPINIROLE HCL 1 MG ORAL TABLET 115107 ROPINIROLE HCL Inactive ROPINIROLE HCL 2 MG ORAL TABLET 1 po at hs 7 ROPINIROLE HCL 2 MG ORAL TABLET 655045 ROPINIROLE HCL Inactive MIRAPEX 0.125 MG ORAL TABLET 1 po nightly MIRAPEX 0.125 MG ORAL TABLET 381711 PRAMIPEXOLE DIHYDROCHLORIDE Inactive MIRAPEX 0.25 MG ORAL TABLET 1 tablet by mouth at night for r estless leg MIRAPEX 0.25 MG ORAL TABLET PRAMIPEXOLE D IHYDROCHLORIDE Inactive HYDROXYZINE HCL 25 MG ORAL TABLET 1 tab po at HS prn sleep 08/02 HYDROXYZINE HCL 25 MG ORAL TABLET 772365 HYDROXYZINE HC L Inactive DIFLUCAN 100 MG ORAL TABLET 1 tablet by mouth daily 21/08/28 DIFLUCAN 100 MG ORAL TABLET 800335 FLUCONAZOLE Inactive BACLOFEN 10 MG ORAL TABLET Take one tablet by mouth three times a day BACLOFEN 10 MG ORAL TABLET 563043 BACLOFEN Inact trent PREDNISONE 20 MG ORAL TABLET 1 tab twice daily for 3 d ay, then one daily for three days PREDNISONE 20 MG ORAL TABLET 045072 PREDNIS ONE Inactive UNISOM SLEEPMELTS 25 MG [...] 03/03/23 BACTRIM DS 800-160 MG ORAL TABLET 961036 TRIMETHOPRIM-SULFAMETHOXAZOLE Inactive ZITHROMAX 250 MG ORAL TABLET 2 po today, then 1 po q days 2-5 20 15/02/10 ZITHROMAX 250 MG ORAL TABLET 585417 AZITHROMYCIN [place] ctive BACTRIM DS 800-160 MG ORAL TABLET [...] 04/13/17 BACTRIM DS 800-160 MG ORAL TABLET 814933 TRIMETHOPRIM-SULFAMETHOXAZOLE Inactive DIFLUCAN 150 MG ORAL TABLET [...] 05/06/28 BACTRIM DS 800-160 MG ORAL TABLET 735720 TRIMETHOPRIM-SULFAMETHOXAZOLE Inactive DIFLUCAN 100 MG ORAL TABLET 1 tablet by mouth daily 20 19/03/05 DIFLUCAN 100 MG ORAL TABLET 742159 FLUCONAZOLE Inactive BACTRIM DS 800-160 MG ORAL TABLET 1 tab by mouth twice daily 201 05/10/28 BACTRIM DS 800-160 MG ORAL TABLET 19830105 TRIMETHOPRIM-SULFAMETHOXAZOLE Inactive AMOXICILLIN 500 MG ORAL CAPSULE 1 cap by mouth three times a day AMOXICILLIN 500 MG ORAL CAPSULE 827443 AMOXICILLIN Inactive ZITHROMAX 250 MG ORAL TABLET 2 po today, then 1 po q days 2-5 20 20/04/28 ZITHROMAX 250 MG ORAL TABLET 048029 AZITHROMYCIN [place] ctive DIFLUCAN 100 MG ORAL TABLET 1 [...] 20 21/08/28 ZITHROMAX 250 MG ORAL TABLET 376278 AZITHROMYCIN [place] ctive FLUCONAZOLE 100 MG ORAL TABLET 1 by mouth daily for yeast infect ion FLUCONAZOLE 100 MG ORAL TABLET 19760711 FLUCONAZOLE I nactive DIFLUCAN 100 MG ORAL TABLET 1 tablet by mouth daily 20 23/12/05 DIFLUCAN 100 MG ORAL TABLET 19760711 FLUCONAZOLE Inactive Advance Directives Directive Description Start Date PERMISSION TO SHARE DISCUSSED WITH PATIENT -- NO DECISION MADE DISCUSED WITH PATIENT -- FULL CODE LIVING WILL ON FILE DURABLE POWER OF STRAND BUNCHER FINE WIRE FOR HEALTHCARE Vital Signs Date Name Value Unit Range Description blood pressure, diastolic, repeated by physician 73 BP lyon blood pressure, diastolic 73 mm[Hg] BP lyon blood pressure, systolic, repeated by physician 127 BP sys blood pressure, systolic 127 mm[Hg] BP sys height E&M 62 [in_us] Bdy height pulse rate 88 /min Heart rate temperature E&M 97.4 [degF] Body temp erature weight E&M 134 [lb_av] Weight Measure d blood pressure, diastolic, repeated by physician 78 BP lyon blood pressure, diastolic 78 mm[Hg] BP lyon blood pressure, systolic, repeated by physician 118 BP sys blood pressure, systolic 118 mm[Hg] BP sys height E&M 62 [in_us] Bdy height pulse rate 85 /min Heart rate temperature E&M 98.2 [degF] Body temp erature weight E&M 137 [lb_av] Weight Measure d blood pressure, diastolic, repeated by physician 78 [...] Magnesium - Chemistry cholesterol, serum 196 mg/dL 259-895 7357/07/30 triglyceride, serum, fasting 86 mg/dL 30-200 HDL cholesterol, serum 41 mg/dL 32-60 LDL cholesterol, serum 138 mg/dL 0-130 sodium, serum 140 mmol/L 711-283 2078/07/30 carbon dioxide, venous blood 28.6 mmol/L 21.0-32 [...] 5.0-8.5 Encounters Code Encounter Date Provider Facility CPT-21478 [id number] Vst-Est Level IV 08:56:46 C BRIDGET Sherman MD [facility] CPT-88117 [id number] Vst-Est Level IV 10:36:10 C BRIDGET Sherman MD [facility] CPT-18083 [id number] Vst-Est Level IV 13:49:08 SECURITY COMPLIANCE SPECIALIST Mendy buzzkathi Stovallord [facility] CPT-92517 [id number] Vst-Est Level IV 11:39:[address] Tesfaye Sherman MD [facility] CPT-01026 [id number] Vst-Est Level IV 14:08:03 C BRIDGET Sherman MD [facility] CPT-48926 Level 3 Est. Patient 18:06:36 CDT Tesfaye pearson MD [facility] CPT-62519 [id number] Vst-Est Level IV 17:09:34 C BRIDGET Sherman MD [facility] CPT-43060 Level 3 Est. Patient 17:27:08 CDT León hernandez APRN [facility] CPT-59467 [id number] Vst-Est Level IV 14:00:[address] Tesfaye Sherman MD [facility] CPT-16711 [id number] Vst-Est Level IV 19:27:[address] Tesfaye Sherman MD [facility] CPT-92940 [id number] Vst-Est Level IV 10:41:41 C BRIDGET Sherman MD [facility] CPT-70214 [id number] Vst-Est Level III 09:40:56 CDT Tesfaye Sherman MD [facility] CPT-70416 Level 4 Est. Patient 22:18:12 CDT Tesfaye pearson MD [facility] CPT-91477 Level 4 Est. Patient 14:44:33 SECURITY COMPLIANCE SPECIALIST Tesfaye pearson MD [facility] CPT-11558 Level 4 Est. Patient 13:55:29 SECURITY COMPLIANCE SPECIALIST Tesfaye pearson MD [facility]-88476 Level 4 Est. Patient 17:07:34 SECURITY COMPLIANCE SPECIALIST Tesfaye pearson MD [facility]-31282 Level 4 Est. Patient 13:56:54 CDT Tesfaye pearson MD [facility]-34155 Level 4 Est. Patient 13:24:25 CDT Chelsea sanz APRN [facility] CPT-32035 Level 4 Est. Patient 09:14:56 CDT Tesfaye pearson MD [facility]-77421 Level 4 Est. Patient 18:40:25 SECURITY COMPLIANCE SPECIALIST Tesfaye pearson MD [facility]-80537 Level 4 Est. Patient 18:13:07 SECURITY COMPLIANCE SPECIALIST Tesfaye pearson MD [facility] CPT-64224 Level 3 Est. Patient 10:46:32 CDT Rj cotto DO [facility]-45187 Level 4 Est. Patient 20:19:25 CDT Tesfaye pearson MD [facility]-06754 Level 3 Est. Patient 09:07:31 CDT Tesfaye pearson MD [facility]-18837 Level 4 Est. Patient 13:12:56 CDT Tesfaye pearson MD [facility]-33946 Level 4 Est. Patient 21:24:55 SECURITY COMPLIANCE SPECIALIST Tesfaye pearson MD [facility]-26512 Level 3 Est. Patient 13:45:04 SECURITY COMPLIANCE SPECIALIST Tesfaye pearson MD [facility] CPT-67050 Level 4 Est. Patient 13:50:45 CDT Tesfaye pearson MD [facility] CPT-83787 Level 3 Est. Patient 10:16:10 CDT Tesfaye pearson MD [facility] CPT-61635 Level 3 Est. Patient 16:36:07 SECURITY COMPLIANCE SPECIALIST Kayla jameson MD [facility] CPT-69974 Level 4 Est. Patient 16:00:14 SECURITY COMPLIANCE SPECIALIST Tesfaye pearson MD [facility] CPT-58935 Level 4 Est. Patient 11:02:24 SECURITY COMPLIANCE SPECIALIST Tesfaye pearson MD [facility] CPT-92850 Level 3 Est. Patient 20:21:43 SECURITY COMPLIANCE SPECIALIST Kayla jameson MD [facility] CPT-25940 Level 3 Est. Patient 13:27:28 SECURITY COMPLIANCE SPECIALIST Kayla jameson MD [facility] CPT-63083 Level 4 Est. Patient 15:57:17 SECURITY COMPLIANCE SPECIALIST Tesfaye pearson MD [facility] CPT-19896 Level 3 New Patient 13:25:47 CDT Tesfaye kidd MD [facility] CPT-75763 Level 3 New Patient 17:22:21 CDT Kayla angel MD [facility] Procedures Code Procedure Name Date Entry Date Standard Desc ription CPT-95178 Venipuncture Draw Fee 10:04:55 CDT CPT-79677 Prv Med Est Pt 40-64yrs 09:01:58 CDT 03/09 CPT-G0439 Subsequent Annual Wellness Exam 11:25:51 CDT CPT-SC3074O (4274F 2P) Patient Reason Influenza immu nization not administered 13:25:19 SECURITY COMPLIANCE SPECIALIST CPT-60479 Bone Density - XRAY USE ONLY 15:21:33 CDT CPT-17628 Venipuncture Draw Fee 16:12:22 CDT CPT-G0439 Subsequent Annual Wellness Exam 18:06:36 CDT CPT-G0439 Subsequent Annual Wellness Exam 22:18:11 CDT CPT-23697 Bone Density - XRAY USE ONLY 11:43:58 CDT 2 CPT-60890 Bone Density - XRAY USE ONLY 10:05:16 CDT 2 CPT-99787 Prv Med New Pt 40-64 yrs 18:19:25 CDT 2016 CPT-75795 Foot, right, comp min 3V - XRAY USE ONLY 10:38:34 CDT CPT-G0439 Subsequent Annual Wellness Exam 13:55:04 CDT CPT-G0438 Initial Annual Wellness Exam 11:23:17 CD T CPT-J2930 Solu Medrol 125 mg (Methyl Prednisolone Sodium Succinate) 17:29:12 SECURITY COMPLIANCE SPECIALIST CPT-77697 Abx/Therapy Injection 17:29:11 SECURITY COMPLIANCE SPECIALIST CPT-J2930 Solu Medrol 125 mg (Methyl Prednisolone Sodium Succinate) 12:34:38 SECURITY COMPLIANCE SPECIALIST CPT-J3420 Vitamin B12 1000mcg (Cyanocobalamin) 09:12:55 CDT CPT-J3420 Vitamin B12 1000mcg (Cyanocobalamin) 16:28:06 SECURITY COMPLIANCE SPECIALIST CPT-56012 Venipuncture Draw Fee 08:39:53 CDT CPT-J3420 Vitamin B12 1000mcg (Cyanocobalamin) 08:46:22 CDT CPT-35189 Abx/Therapy Injection 08:46:22 CDT CPT-J3420 Vitamin B12 1000mcg (Cyanocobalamin) 08:41:26 CDT CPT-66876 Abx/Therapy Injection 08:41:26 CDT CPT-J3420 Vitamin B12 1000mcg (Cyanocobalamin) 08:57:15 CDT CPT-93022 Abx/Therapy Injection 08:57:15 CDT CPT-J3420 Vitamin B12 1000mcg (Cyanocobalamin) 10:59:03 CDT CPT-86190 Abx/Therapy Injection 10:59:03 CDT CPT-J3420 Vitamin B12 1000mcg (Cyanocobalamin) 15:05:39 CDT CPT-61193 Abx/Therapy Injection 15:05:39 CDT CPT-J3420 Vitamin B12 1000mcg (Cyanocobalamin) 13:50:45 CDT CPT-J3420 Vitamin B12 1000mcg (Cyanocobalamin) 08:48:55 CDT CPT-03017 Abx/Therapy Injection 08:48:55 CDT CPT-J3420 Vitamin B12 1000mcg (Cyanocobalamin) 09:14:54 CDT CPT-38362 Abx/Therapy Injection 09:14:54 CDT CPT-J3420 Vitamin B12 1000mcg (Cyanocobalamin) 09:06:06 CDT CPT-85679 Abx/Therapy Injection 09:06:06 CDT CPT-J3420 Vitamin B12 1000mcg (Cyanocobalamin) 09:49:14 CDT CPT-34712 Abx/Therapy Injection 09:49:14 CDT CPT-J3420 Vitamin B12 1000mcg (Cyanocobalamin) 09:10:30 SECURITY COMPLIANCE SPECIALIST CPT-15848 Abx/Therapy Injection 09:10:30 SECURITY COMPLIANCE SPECIALIST CPT-J3420 Vitamin B12 1000mcg (Cyanocobalamin) 09:11:07 SECURITY COMPLIANCE SPECIALIST CPT-58562 Abx/Therapy Injection 09:11:07 SECURITY COMPLIANCE SPECIALIST CPT-J3420 Vitamin B12 1000mcg (Cyanocobalamin) 09:57:03 SECURITY COMPLIANCE SPECIALIST CPT-92270 Abx/Therapy Injection 09:57:03 SECURITY COMPLIANCE SPECIALIST CPT-J3420 Vitamin B12 1000mcg (Cyanocobalamin) 09:23:21 SECURITY COMPLIANCE SPECIALIST CPT-92153 Abx/Therapy Injection 09:23:21 SECURITY COMPLIANCE SPECIALIST CPT-83428 Urine Dip (Floor Use Only) 20:21:44 SECURITY COMPLIANCE SPECIALIST 201 02/12/11 CPT-54688 UA Dip Auto (Floor Use Only) 10:04:39 SECURITY COMPLIANCE SPECIALIST 2 CPT-55377 Urine Dip (Floor Use Only) 13:27:28 SECURITY COMPLIANCE SPECIALIST 201 02/12/01 CPT-30632 Bladder Scan 13:27:28 SECURITY COMPLIANCE SPECIALIST CPT-20072 Abd single AP View 14:30:51 SECURITY COMPLIANCE SPECIALIST CPT-OV Office Visit 10:15:43 CDT CPT-58302 Urine Dip (Floor Use Only) 17:22:21 CDT 201 02/09/02 CPT-08091 Bladder Scan 17:22:21 CDT
--- OUTSIDE RECORDS SUMMARY | 2020-05-05 11:53 | XMS REPORT | Clinical Summary ---
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 Tesfaye Sherman MD Long-term (current) drug use Yeast infection 112.9 Inactive Tesfaye Sherman MD Candidiasis of unspecified site Upper respiratory infection 465.9 Inactive Tesfaye Sherman MD Acute upper respiratory infections of un specified site Lower extremity edema, bilateral 782.3 Active 201 07/07/09 León Kodi [employer] PULPER Edema Peripheral neuropathy 356.9 Active Tesfaye lamb MD Unspecified hereditary and idiopathic peripheral neuropathy Restless leg syndrome 333.94 Active Tesfaye lamb MD Restless legs syndrome (RLS) Overweight (BMI 25-29.9) Resolved Tesfaye Sherman MD Overweight Peripheral edema 782.3 Active Tesfaye Sherman MD Edema FH Diabetes ICD-V18.0 Inactive Tesfaye Sherman MD 20 22/12/06 FH Depression ICD-V17.0 Inactive Tesfaye Sherman MD [...] Body Mass Index 20.0-20.9 Adult Eldon Shah [facility] Dysuria ICD-788.1 Inactive Tesfaye Sherman MD 201 07/05/07 Yeast infection ICD-112.9 Inactive Tesfaye lamb MD Upper respiratory infection ICD-465.9 Inactive Tesfaye Sherman MD Overweight (BMI 25-29.9) Inactive Adriana Arredondo [facility] Medication List Medication Instructions Start Date Stop Date Generic Name NDC Status Provider Patient Instruction AMITRIPTYLINE HCL 10 MG ORAL TABLET take 1 tab po qhs for neurop athy AMITRIPTYLINE HCL [id number] Active Tesfaye Sherman MD Active FUROSEMIDE 20 MG ORAL TABLET take 1/2 to 1 tablet by mouth d aily prn swelling FUROSEMIDE 79824216140 Active Tesfaye Sherman MD Active FENOFIBRATE 145 MG ORAL TABLET Take 1 tablet by mouth once daily 20 23/12/19 FENOFIBRATE 82641323784 Active Tesfaye Sherman MD Active PRAMIPEXOLE DIHYDROCHLORIDE 0.75 MG ORAL TABLET take 1 tab po qhs for restless leg syndrome. PRAMIPEXOLE DIHYDROCHLORIDE 08956604441 Acti ve Tesfaye Sherman MD Active DIFLUCAN 100 MG ORAL TABLET 1 tablet by mouth daily 20 23/12/05 FLUCONAZOLE 31078657735 No Longer Active Tesfaye Sherman MD Acti ve [facility] NIACIN FLUSH FREE 400-100 MG ORAL CAPSULE 1 daily NIACIN-INOSITOL 91854749741 No Longer Active Tesfaye Sherman MD A ctive FISH OIL 1000 MG ORAL CAPSULE DELAYED RELEASE 1 pill b y mouth daily for cholesterol OMEGA-3 FATTY ACIDS 30175281932 No Longe r Active Tesfaye Sherman MD Active UNISOM SLEEPMELTS 25 MG ORAL TABLET DISINTEGRATING 1.5 po q hs DIPHENHYDRAMINE HCL (SLEEP) 12234494733 No Longer Active Venkata Sherman MD Active PREDNISONE 20 MG ORAL TABLET 1 tab twice daily for 3 d ay, then one daily for three days PREDNISONE 50969107066 No Longer Active Tesfaye Sherman MD Active BACLOFEN 10 MG ORAL TABLET Take one tablet by mouth three times a day BACLOFEN 04660997111 No Longer Active Tesfaye Sherman MD Active LIDOCAINE 4 % EXTERNAL CREAM Apply to back prn pain LIDOCAINE 03878760484 Active Tesfaye Sherman MD Active TIZANIDINE HCL 2 MG ORAL TABLET 2 Mg in the AM and 6mg q hs 07/05 TIZANIDINE HCL 24824132395 Active Tesfaye Sherman MD Active HYDROXYZINE HCL 25 MG TABS TAKE 1 TABLET BY MOUTH AT B EDTIME NEEDED FOR SLEEP HYDROXYZINE HCL 77761113367 Active JOSHUA Lindsay Active FLUCONAZOLE 100 MG ORAL TABLET 1 by mouth daily for yeast infect ion FLUCONAZOLE 73247806122 No Longer Active Laurence Dominguez Acti ve ZITHROMAX 250 MG ORAL TABLET 2 po today, then 1 po q days 2-5 20 21/08/28 AZITHROMYCIN 53631380961 No Longer Active Tesfaye Sherman MD Active DIFLUCAN 100 MG ORAL TABLET 1 tablet by mouth daily 20 21/08/28 FLUCONAZOLE 08987063416 No Longer Active Tesfaye Sherman MD Acti ve HYDROXYZINE HCL 25 MG ORAL TABLET 1 tab po at HS prn sleep 08/02 HYDROXYZINE HCL 51536811676 No Longer Active Tesfaye Sherman MD Active MIRAPEX 0.5 MG ORAL TABLET 1 tablet at night for restless leg. 2018 PRAMIPEXOLE DIHYDROCHLORIDE 86164193656 Active Laurence Dominguez Active MIRAPEX 0.25 MG ORAL TABLET 1 tablet by mouth at night for r estless leg PRAMIPEXOLE DIHYDROCHLORIDE 44532137696 No Longer Act trent Laurence Dominguez Active MIRAPEX 0.125 MG ORAL TABLET 1 po nightly PRAMIPEXOLE DIHYDROCHLORIDE 55400381987 No Longer Active Laurenceyohana Dominguez Active ROPINIROLE HCL 2 MG ORAL TABLET 1 po at hs ROPI NIROLE HCL 31749177996 No Longer Active Laurence Raida Active ROPINIROLE HCL 1 MG ORAL TABLET 1 tab po q hs ROPINIROLE HCL 65583570201 No Longer Active Laurence Dominguez Active ROPINIROLE HCL 0.5 MG ORAL TABLET 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 ROPINIROLE HCL 38738810782 No Longer Active MARCUS Panchal Active ROPINIROLE HCL 0.25 MG ORAL TABLET 1 TAB PO Q HS 05/31 ROPINIROLE HCL 17542932537 No Longer Active Tesfaye Sherman MD Ac tive PREDNISONE 20 MG ORAL TABLET 1 tab twice daily for 3 d ay, then one daily for three days PREDNISONE 96837417156 No Longer Active Tesfaye Sherman MD Active AMITRIPTYLINE HCL 50 MG ORAL TABLET 1 po q hs for sleep AMITRIPTYLINE HCL 23320752719 No Longer Active Tesfaye Sherman MD Active AMITRIPTYLINE HCL 10 MG ORAL TABLET 1 tablet nightly by mout h for neuropathy AMITRIPTYLINE HCL 65144527964 No Longer Active MARCUS Stapleton Active DIFLUCAN 100 MG ORAL TABLET 1 tablet by mouth daily 21/03/11 FLUCONAZOLE 53598198934 No Longer Active Tesfaye Sherman MD Acti ve BACTRIM DS 800-160 MG ORAL TABLET 1 tab by mouth twice daily 201 07/08/06 TRIMETHOPRIM-SULFAMETHOXAZOLE 73330289482 No Longer Active Umer Sherman MD Active CLARITIN 10 MG ORAL TABLET Take one by mouth daily LORATADINE 97723312736 Active Tesfaye Sherman MD Active SUDAFED 12 HOUR 120 MG ORAL TABLET EXTENDED RELEASE 12 HOUR 1 pill twice daily if needed for congestion PSEUDOEPHEDRINE HCL 584628890 13 No Longer Active Tesfaye Sherman MD Active GABAPENTIN 300 MG ORAL CAPSULE 1 po daily GABAP ENTIN 82382828262 No Longer Active Tesfaye Sherman MD Active HYDROCHLOROTHIAZIDE 12.5 MG ORAL CAPSULE 1 pill by mough daily 2 HYDROCHLOROTHIAZIDE 56654367260 No Longer Active Leónkash Mariee APRN Active VENLAFAXINE HCL 75 MG ORAL TABLET 1 am 1 at noon 201 07/07/09 VENLAFAXINE HCL 93052155431 No Longer Active León Mariee APRN Act trent DIFLUCAN 100 MG ORAL TABLET 1 tablet by mouth daily 20 19/02/09 FLUCONAZOLE 80993992705 No Longer Active León Kodi [employer]UL[employer] Active DIFLUCAN 100 MG ORAL TABLET 1 tablet by mouth daily 20 19/02/09 FLUCONAZOLE 78690675617 No Longer Active León Kodi [employer] Active OXYCODONE-ACETAMINOPHEN 5-325 MG ORAL TABLET Take one tablet by mouth every 6 hours 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 Use sparingly OXYCODONE-ACETAMINOPHEN 02314715076 Active Tesfaye villar MD Active CLONAZEPAM 0.5 MG ORAL TABLET Take 1/2 qam, and 1/2 qpm CLONAZEPAM 63993344668 Active Tesfaye Sherman MD Active PRELIEF 340 (65-50) MG (CA-P) ORAL TABLET CALCIUM GLYCEROPHOSPHATE 65919579875 No Longer Active Tesfaye Sherman MD Active SUDAFED 24 HOUR 240 MG ORAL TABLET EXTENDED RELEASE 24 HOUR 1 tab po daily PSEUDOEPHEDRINE HCL 79451848588 No Longer Active aRul Sherman MD Active RED YEAST RICE 600 MG ORAL CAPSULE 1 pill by mouth daily RED YEAST RICE EXTRACT 14183978927 No Longer Active Tesfaye Sherman MD Active REPHRESH PRO-B ORAL CAPSULE 1 tablet daily LACT OBACILLUS 01991865025 No Longer Active Tesfaye Sherman MD Active ABILIFY 2 MG ORAL TABLET 1 by mouth daily. MARIA ELENA PIPRAZOLE 91176874972 Active Tesfaye Sherman MD Active CYMBALTA 60 MG ORAL CAPSULE DELAYED RELEASE PARTICLES 1 cap by mouth daily for pain DULOXETINE HCL 78611927622 Active MARCUS Lindsay Active DIFLUCAN 100 MG ORAL TABLET 1 tablet by mouth daily 20 20/06/06 FLUCONAZOLE 25819453673 No Longer Active Tesfaye Sherman MD Acti ve PREDNISONE 20 MG ORAL TABLET 1 tablet by mouth twice d aily for 3 days, then 1 tablet daily for 3 days PREDNISONE 35446548095 No L onger Active Tesfaye Sherman MD Active BACTRIM DS 800-160 MG ORAL TABLET 1 tab by mouth twice daily 201 06/09/02 TRIMETHOPRIM-SULFAMETHOXAZOLE 21148530842 No Longer Active A mirna Dominguez Active DIFLUCAN 100 MG ORAL TABLET 1 tablet by mouth daily 20 20/05/01 FLUCONAZOLE 56817452029 No Longer Active Tesfaye Sherman MD Acti ve ZITHROMAX 250 MG ORAL TABLET 2 po today, then 1 po q days 2-5 20 20/04/28 AZITHROMYCIN 17721950775 No Longer Active Tesfaye Sherman MD Active MECLIZINE HCL 25 MG ORAL TABLET one tab po qday prn dizziness 20 17/09/06 MECLIZINE HCL 26762586227 No Longer Active Tesfaye Sherman MD Active PROAIR HFA 108 (90 BASE) MCG/ACT INHALATION AEROSOL SO LUTION 1 puff every 6 hours as needed ALBUTEROL SULFATE 10268962278 No Long er Active Tesfaye Sherman MD Active PREDNISONE 20 MG ORAL TABLET 1 tab twice daily for 3 d ay, then one daily for three days PREDNISONE 51263180795 No Longer Active Tesfaye Sherman MD Active MECLIZINE HCL 25 MG ORAL TABLET one 4 times a day as needed for dizziness MECLIZINE HCL 57883150272 Active Tesfaye Sherman MD Active AMOXICILLIN 500 MG ORAL CAPSULE 1 cap by mouth three times a day AMOXICILLIN 09426457108 No Longer Active Laurence Dominguez Acti ve DIFLUCAN 100 MG ORAL TABLET 1 tablet by mouth daily 19/08/26 FLUCONAZOLE 10692262288 No Longer Active Tesfaye Sherman MD Acti ve BACTRIM DS 800-160 MG ORAL TABLET 1 tab by mouth twice daily 201 05/10/28 TRIMETHOPRIM-SULFAMETHOXAZOLE 97466334283 No Longer Active Fer Dominguez Active FOSAMAX 70 MG ORAL TABLET 1 po qweek. Take 30min prio r to first food/drink. Avoid lying down x 1 hour. ALENDRONATE SODIUM 39564343 144 No Longer Active Laurence Dominguez Active CYMBALTA 60 MG ORAL CAPSULE DELAYED RELEASE PARTICLES Take 1 tablet by mouth daily DULOXETINE HCL 04368699732 No Longer Active Edith Burch MD Active CYMBALTA 30 MG ORAL CAPSULE DELAYED RELEASE PARTICLES 1 cap by mouth daily with 60mg DULOXETINE HCL 91664376508 No Longer Active Jordan Burch MD Active DIFLUCAN 100 MG ORAL TABLET 1 tablet by mouth daily 20 19/03/05 FLUCONAZOLE 76464169904 No Longer Active Tesfaye Sherman MD Acti ve BACTRIM DS 800-160 MG ORAL TABLET 1 tab by mouth twice daily 201 05/06/28 TRIMETHOPRIM-SULFAMETHOXAZOLE 64683393304 No Longer Active D patricia Sherman MD Active BACTRIM DS 800-160 MG ORAL TABLET 1 tab by mouth twice daily 201 05/04/15 TRIMETHOPRIM-SULFAMETHOXAZOLE 20615973633 No Longer Active Umer Sherman MD Active DIFLUCAN 150 MG ORAL TABLET 1 tablet by mouth daily 20 18/09/20 FLUCONAZOLE 80948058049 No Longer Active Tesfaye Sherman MD Acti ve BACTRIM DS 800-160 MG ORAL TABLET 1 tab by mouth twice daily 201 04/13/17 TRIMETHOPRIM-SULFAMETHOXAZOLE 39733804671 No Longer Active Umer Sherman MD Active CEFTIN 250 MG ORAL TABLET 1 tablet twice daily x 7 days CEFUROXIME AXETIL 83337071652 No Longer Active Tesfaye Sherman MD Active DIFLUCAN 100 MG ORAL TABLET 1 tablet by mouth every other da y for 2 doses FLUCONAZOLE 00130825610 No Longer Active Tesfaye barron MD Active DIFLUCAN 100 MG ORAL TABLET 1 tablet by mouth daily X 3 DAYS 201 04/09/01 FLUCONAZOLE 78400060183 No Longer Active Rj Lyons tive MIRTAZAPINE 15 MG ORAL TABLET 1/2 tab by mouth at bedtime. 03/13 MIRTAZAPINE 75098993944 No Longer Active Tesfaye Sherman MD Active BACTRIM DS 800-160 MG ORAL TABLET 1 tab by mouth twice daily 201 04/09/01 TRIMETHOPRIM-SULFAMETHOXAZOLE 79322185322 No Longer Active Umer Sherman MD Active PRAMIPEXOLE DIHYDROCHLORIDE 0.125 MG ORAL TABLET take 1 tablet po qhs for restless leg syndrome. PRAMIPEXOLE DIHYDROCHLORI DE 71008333013 No Longer Active Tesfaye Sherman MD Active MAGNESIUM 400 MG ORAL TABLET 1 tab po daily MAGNE SIUM 71179539099 Active Chelsea Cardenas APRN Active CETIRIZINE HCL 5 MG ORAL TABLET Take 1 tablet by mouth daily CETIRIZINE HCL 39677551912 No Longer Active Chelsea Cardenas APRN Activ e TRIMETHOPRIM 100 MG ORAL TABLET 1/2 qd TRIM ETHOPRIM 66920466359 No Longer Active Chelsea Cardenas APRN Active BACTRIM DS 800-160 MG ORAL TABLET 1 tab by mouth twice daily 201 04/04/11 TRIMETHOPRIM-SULFAMETHOXAZOLE 92321897925 No Longer Active Umer Sherman MD Active BACTRIM DS 800-160 MG ORAL TABLET 1 tab by mouth twice daily X 10 DAYS TRIMETHOPRIM-SULFAMETHOXAZOLE 04389632575 No Longer Active Tesfaye Sherman MD Active AMOXICILLIN 500 MG ORAL CAPSULE 1 cap by mouth three times a day AMOXICILLIN 54405048007 No Longer Active Adriana Arredondo, A A ctive B-12 1000 MCG ORAL LOZENGE 1 tab po daily CYANO COBALAMIN 09981876453 Active Tesfaye Sherman MD Active VITAMIN D3 2000 UNIT ORAL TABLET 1 daily, for vitamin D deficien cy CHOLECALCIFEROL 86795372547 No Longer Active Tesfaye Sherman MD Active ZITHROMAX 250 MG ORAL TABLET 2 po today, then 1 po q days 2-5 20 15/02/10 AZITHROMYCIN 68469040660 No Longer Active Tesfaye Sherman MD Active BACTRIM DS 800-160 MG ORAL TABLET 1 tab by mouth twice daily 201 03/03/23 TRIMETHOPRIM-SULFAMETHOXAZOLE 76218411149 No Longer Active Umer Sherman MD Active DIFLUCAN 150 MG ORAL TABLET 1 qd FLUCONAZOL E 27416149653 No Longer Active Kayla Cooper MD Active FLUTICASONE PROPIONATE 50 MCG/ACT NASAL SUSPENSION 1 spray each nostril twice daily FLUTICASONE PROPIONATE 17093896638 Active Umer Sherman MD Active LOVASTATIN 20 MG ORAL TABLET Take 1 tablet by mouth daily LOVASTATIN 45213315601 No Longer Active Tesfaye Sherman MD Acti ve MELOXICAM 7.5 MG ORAL TABLET 1 tablet by mouth daily 2 MELOXICAM 25859622647 No Longer Active Tesfaye Sherman MD Acti ve GABAPENTIN 300 MG ORAL CAPSULE Take two tablets by mouth every e vening GABAPENTIN 44789110266 No Longer Active Edith [place] ctive GABAPENTIN 300 MG ORAL CAPSULE Take two tablets by mouth every e vening GABAPENTIN 300 MG ORAL CAPSULE 986453 GABAPENTIN I nactive MELOXICAM 7.5 MG ORAL TABLET 1 tablet by mouth daily 2 MELOXICAM 7.5 MG ORAL TABLET 057074 MELOXICAM Inactive LOVASTATIN 20 MG ORAL TABLET Take 1 tablet by mouth daily LOVASTATIN 20 MG ORAL TABLET 829945 LOVASTATIN Inactive DIFLUCAN 150 MG ORAL TABLET 1 qd DIFLUCAN 150 MG ORAL TABLET 317891 FLUCONAZOLE Inactive VITAMIN D3 2000 UNIT ORAL TABLET 1 daily, for vitamin D deficien cy VITAMIN D3 2000 UNIT ORAL TABLET CHOLECALCIFEROL Inactive AMOXICILLIN 500 MG ORAL CAPSULE 1 cap by mouth three times a day AMOXICILLIN 500 MG ORAL CAPSULE 383950 AMOXICILLIN Inactive BACTRIM DS 800-160 MG ORAL TABLET 1 tab by mouth twice daily X 10 DAYS BACTRIM DS 800-160 MG ORAL TABLET 311645 TRIMETHOPRIM-SULFAMETHOXAZOLE Inactive TRIMETHOPRIM 100 MG ORAL TABLET 1/2 qd 7 TRIMETHOPRIM 100 MG ORAL TABLET 140136 TRIMETHOPRIM Inactive CETIRIZINE HCL 5 MG ORAL TABLET Take 1 tablet by mouth daily CETIRIZINE HCL 5 MG ORAL TABLET 7570195 CETIRIZINE HCL Inactive PRAMIPEXOLE DIHYDROCHLORIDE 0.125 MG ORAL TABLET take 1 tablet po qhs for restless leg syndrome. PRAMIPEXOLE DIHYD ROCHLORIDE 0.125 MG ORAL TABLET 564873 PRAMIPEXOLE DIHYDROCHLORIDE Inactive MIRTAZAPINE 15 MG ORAL TABLET 1/2 tab by mouth at bedtime. 03/13 MIRTAZAPINE 15 MG ORAL TABLET 714883 MIRTAZAPINE In active DIFLUCAN 100 MG ORAL TABLET 1 tablet by mouth daily X 3 DAYS 201 04/09/01 DIFLUCAN 100 MG ORAL TABLET 169234 FLUCONAZOLE Inac tive DIFLUCAN 100 MG ORAL [...] 30 MG ORAL CAPSULE DELAYED RELEASE PARTICLES 262152 DULOXETINE HCL Inactive CYMBALTA 60 MG ORAL CAPSULE DELAYED RELEASE PARTICLES Take 1 tablet by mouth daily CYMBALTA 60 MG ORAL CAPSULE DELAYED RELEA SE PARTICLES 134318 DULOXETINE HCL Inactive FOSAMAX 70 MG ORAL TABLET 1 po qweek. Take 30min prio r to first food/drink. Avoid lying down x 1 hour. FOSAMAX 70 MG ORAL TA BLET 822469 ALENDRONATE SODIUM Inactive DIFLUCAN 100 MG ORAL TABLET 1 tablet by mouth daily 19/08/26 DIFLUCAN 100 MG ORAL TABLET 19760711 FLUCONAZOLE Inactive PREDNISONE 20 MG ORAL TABLET 1 tab twice daily for 3 d ay, then one daily for three days PREDNISONE 20 MG ORAL TABLET 095033 PREDNIS ONE Inactive PROAIR HFA 108 (90 BASE) MCG/ACT INHALATION AEROSOL SO LUTION 1 puff every 6 hours as needed PROAIR HFA 108 (90 B ASE) MCG/ACT INHALATION AEROSOL SOLUTION ALBUTEROL SULFATE Inactive MECLIZINE HCL 25 MG ORAL TABLET one tab po qday prn dizziness 20 17/09/06 MECLIZINE HCL 25 MG ORAL TABLET 674738 MECLIZINE HCL Inactive PREDNISONE 20 MG ORAL TABLET 1 tablet by mouth twice d aily for 3 days, then 1 tablet daily for 3 days PREDNISONE 20 MG ORAL TA BLET 279191 PREDNISONE Inactive DIFLUCAN 100 MG ORAL TABLET 1 tablet by mouth daily 20 20/06/06 DIFLUCAN 100 MG ORAL TABLET 742939 FLUCONAZOLE Inactive REPHRESH PRO-B ORAL CAPSULE 1 tablet daily REPHRESH PRO-B ORAL CAPSULE LACTOBACILLUS Inactive RED YEAST RICE 600 MG ORAL CAPSULE 1 pill by mouth daily RED YEAST RICE 600 MG ORAL CAPSULE 921745 RED YEAST RICE EXTRACT In active SUDAFED [...] daily 19/02/09 DIFLUCAN 100 MG ORAL TABLET 804027 FLUCONAZOLE Inactive DIFLUCAN 100 MG ORAL TABLET 1 tablet by mouth daily 19/02/09 DIFLUCAN 100 MG ORAL TABLET 814007 FLUCONAZOLE Inactive VENLAFAXINE HCL 75 MG ORAL TABLET 1 am 1/2 at noon 201 07/07/09 VENLAFAXINE HCL 75 MG ORAL TABLET 026062 VENLAFAXINE HCL Inacti ve GABAPENTIN 300 MG ORAL CAPSULE 1 po daily GABAPENTIN 300 MG ORAL CAPSULE 078402 GABAPENTIN Inactive SUDAFED 12 HOUR 120 MG ORAL TABLET EXTENDED RELEASE 12 HOUR 1 pill twice daily if needed for congestion SUDAFED 12 HOUR 120 MG ORAL TABLET EXTENDED RELEASE 12 HOUR PSEUDOEPHEDRINE HCL Inactive AMITRIPTYLINE HCL 10 MG ORAL TABLET 1 tablet nightly by mout h for neuropathy AMITRIPTYLINE HCL 10 MG ORAL TABLET 596622 AMITRIPTYLINE HCL Inactive AMITRIPTYLINE HCL 50 MG ORAL TABLET 1 po q hs for sleep AMITRIPTYLINE HCL 50 MG ORAL TABLET 974414 AMITRIPTYLINE HCL Inac tive PREDNISONE 20 MG ORAL TABLET 1 tab twice daily for 3 d ay, then one daily for three days PREDNISONE 20 MG ORAL TABLET 056635 PREDNIS ONE Inactive ROPINIROLE HCL 0.25 MG ORAL TABLET 1 TAB PO Q HS 05/31 ROPINIROLE HCL 0.25 MG ORAL TABLET 206014 ROPINIROLE HCL Inact trent ROPINIROLE HCL 0.5 MG ORAL TABLET 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 ROPINIROLE HCL 0.5 MG ORAL TABLET 379712 ROPINIR OLE HCL Inactive ROPINIROLE HCL 1 MG ORAL TABLET 1 tab po q hs ROPINIROLE HCL 1 MG ORAL TABLET 986384 ROPINIROLE HCL Inactive ROPINIROLE HCL 2 MG ORAL TABLET 1 po at hs 7 ROPINIROLE HCL 2 MG ORAL TABLET 652057 ROPINIROLE HCL Inactive MIRAPEX 0.125 MG ORAL TABLET 1 po nightly MIRAPEX 0.125 MG ORAL TABLET 712102 PRAMIPEXOLE DIHYDROCHLORIDE Inactive MIRAPEX 0.25 MG ORAL TABLET 1 tablet by mouth at night for r estless leg MIRAPEX 0.25 MG ORAL TABLET PRAMIPEXOLE D IHYDROCHLORIDE Inactive HYDROXYZINE HCL 25 MG ORAL TABLET 1 tab po at HS prn sleep 08/02 HYDROXYZINE HCL 25 MG ORAL TABLET 609741 HYDROXYZINE HC L Inactive DIFLUCAN 100 MG ORAL TABLET 1 tablet by mouth daily 21/08/28 DIFLUCAN 100 MG ORAL TABLET 054230 FLUCONAZOLE Inactive BACLOFEN 10 MG ORAL TABLET Take one tablet by mouth three times a day BACLOFEN 10 MG ORAL TABLET 203522 BACLOFEN Inact trent PREDNISONE 20 MG ORAL TABLET 1 tab twice daily for 3 d ay, then one daily for three days PREDNISONE 20 MG ORAL TABLET 805690 PREDNIS ONE Inactive UNISOM SLEEPMELTS 25 MG [...] 03/03/23 BACTRIM DS 800-160 MG ORAL TABLET 224153 TRIMETHOPRIM-SULFAMETHOXAZOLE Inactive ZITHROMAX 250 MG ORAL TABLET 2 po today, then 1 po q days 2-5 20 15/02/10 ZITHROMAX 250 MG ORAL TABLET 576353 AZITHROMYCIN [place] ctive BACTRIM DS 800-160 MG ORAL TABLET [...] 04/13/17 BACTRIM DS 800-160 MG ORAL TABLET 602318 TRIMETHOPRIM-SULFAMETHOXAZOLE Inactive DIFLUCAN 150 MG ORAL TABLET [...] 05/06/28 BACTRIM DS 800-160 MG ORAL TABLET 453980 TRIMETHOPRIM-SULFAMETHOXAZOLE Inactive DIFLUCAN 100 MG ORAL TABLET 1 tablet by mouth daily 20 19/03/05 DIFLUCAN 100 MG ORAL TABLET 909411 FLUCONAZOLE Inactive BACTRIM DS 800-160 MG ORAL TABLET 1 tab by mouth twice daily 201 05/10/28 BACTRIM DS 800-160 MG ORAL TABLET 19830105 TRIMETHOPRIM-SULFAMETHOXAZOLE Inactive AMOXICILLIN 500 MG ORAL CAPSULE 1 cap by mouth three times a day AMOXICILLIN 500 MG ORAL CAPSULE 418491 AMOXICILLIN Inactive ZITHROMAX 250 MG ORAL TABLET 2 po today, then 1 po q days 2-5 20 20/04/28 ZITHROMAX 250 MG ORAL TABLET 647661 AZITHROMYCIN [place] ctive DIFLUCAN 100 MG ORAL TABLET 1 [...] 20 21/08/28 ZITHROMAX 250 MG ORAL TABLET 326528 AZITHROMYCIN Mayela ctive FLUCONAZOLE 100 MG ORAL [...] LIVING WILL ON FILE DURABLE POWER OF 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 CONTROL OPERATOR FOR HEALTHCARE Vital Signs Date Name [...] Magnesium - Chemistry cholesterol, serum 196 mg/dL 829-095 8121/07/30 triglyceride, serum, fasting 86 mg/dL 30-200 HDL cholesterol, serum 41 mg/dL 32-60 LDL cholesterol, serum 138 mg/dL 0-130 sodium, serum 140 mmol/L 836-329 7184/07/30 carbon dioxide, venous blood 28.6 mmol/L 21.0-32 [...] 5.0-8.5 Encounters Code Encounter Date Provider Facility CPT-86577 [id number] Vst-Est Level IV 08:56:46 C BRIDGET Sherman MD [facility] CPT-56161 [id number] Vst-Est Level IV 10:36:10 C BRIDGET Sherman MD [facility] CPT-56558 [id number] Vst-Est Level IV 13:49:08 PEDIATRIC LPN Mendy buzzkathi Stovallord [facility] CPT-97576 [id number] Vst-Est Level IV 11:39:[address] Tesfaye Sherman MD [facility] CPT-72325 [id number] Vst-Est Level IV 14:08:03 C BRIDGET Sherman MD [facility] CPT-85776 Level 3 Est. Patient 18:06:36 CDT Tesfaye pearson MD [facility] CPT-42999 23797-Ppv Vst-Est Level IV 17:09:34 C BRIDGET Sherman MD [facility] CPT-09405 Level 3 Est. Patient 17:27:08 CDT León hernandez APRN [facility] CPT-50120 [id number] Vst-Est Level IV 14:00:[address] Tesfaye Sherman MD [facility] CPT-78631 [id number] Vst-Est Level IV 19:27:[address] Tesfaye Sherman MD [facility] CPT-18950 [id number] Vst-Est Level IV 10:41:41 C BRIDGET Sherman MD [facility] CPT-15758 [id number] Vst-Est Level III 09:40:56 CDT Tesfaye Sherman MD [facility] CPT-77160 Level 4 Est. Patient 22:18:12 CDT Tesfaye pearson MD [facility] CPT-59085 Level 4 Est. Patient 14:44:33 PEDIATRIC LPN Tesfaye pearson MD [facility] CPT-33011 Level 4 Est. Patient 13:55:29 PEDIATRIC LPN Tesfaye pearson MD [facility]-05700 Level 4 Est. Patient 17:07:34 PEDIATRIC LPN Tesfaye pearson MD [facility]-44014 Level 4 Est. Patient 13:56:54 CDT Tesfaye pearson MD [facility]-46364 Level 4 Est. Patient 13:24:25 CDT Chelsea sanz APRN [facility] CPT-15091 Level 4 Est. Patient 09:14:56 CDT Tesfaye pearson MD [facility]-03950 Level 4 Est. Patient 18:40:25 PEDIATRIC LPN Tesfaye pearson MD [facility]-02268 Level 4 Est. Patient 18:13:07 PEDIATRIC LPN Tesfaye pearson MD [facility] CPT-91065 Level 3 Est. Patient 10:46:32 CDT Rj cotto DO [facility]-91503 Level 4 Est. Patient 20:19:25 CDT Tesfaye pearson MD [facility]-04153 Level 3 Est. Patient 09:07:31 CDT Tesfaye pearson MD [facility]-52401 Level 4 Est. Patient 13:12:56 CDT Tesfaye pearson MD [facility]-66708 Level 4 Est. Patient 21:24:55 PEDIATRIC LPN Tesfaye pearson MD [facility]-67253 Level 3 Est. Patient 13:45:04 PEDIATRIC LPN Tesfaye pearson MD [facility] CPT-43972 Level 4 Est. Patient 13:50:45 CDT Tesfaye pearson MD [facility] CPT-97041 Level 3 Est. Patient 10:16:10 CDT Tesfaye pearson MD [facility] CPT-57317 Level 3 Est. Patient 16:36:07 PEDIATRIC LPN Kayla jameson MD [facility] CPT-63654 Level 4 Est. Patient 16:00:14 PEDIATRIC LPN Tesfaye pearson MD [facility] CPT-86720 Level 4 Est. Patient 11:02:24 PEDIATRIC LPN Tesfaye pearson MD [facility] CPT-05800 Level 3 Est. Patient 20:21:43 PEDIATRIC LPN Kayla jameson MD [facility] CPT-12479 Level 3 Est. Patient 13:27:28 PEDIATRIC LPN Kayla jameson MD [facility] CPT-50221 Level 4 Est. Patient 15:57:17 PEDIATRIC LPN Tesfaye pearson MD [facility] -[facility] CPT-69687 Level 3 New Patient 13:25:47 CDT Tesfaye kidd MD [facility] CPT-58925 Level 3 New Patient 17:22:21 CDT Kayla angel MD [facility] Procedures Code Procedure Name Date Entry Date Standard Desc ription CPT-83991 Venipuncture Draw Fee 10:04:55 CDT CPT-98765 Prv Med Est Pt 40-64yrs 09:01:58 CDT 03/09 CPT-G0439 Subsequent Annual Wellness Exam 11:25:51 CDT CPT-IU3461Q (4274F 2P) Patient Reason Influenza immu nization not administered 13:25:19 PEDIATRIC LPN CPT-40111 Bone Density - XRAY USE ONLY 15:21:33 CDT CPT-03982 Venipuncture Draw Fee 16:12:22 CDT CPT-G0439 Subsequent Annual Wellness Exam 18:06:36 CDT CPT-G0439 Subsequent Annual Wellness Exam 22:18:11 CDT CPT-39960 Bone Density - XRAY USE ONLY 11:43:58 CDT 2 CPT-15833 Bone Density - XRAY USE ONLY 10:05:16 CDT 2 CPT-45226 Prv Med New Pt 40-64 yrs 18:19:25 CDT 2016 CPT-66837 Foot, right, comp min 3V - XRAY USE ONLY 10:38:34 CDT CPT-G0439 Subsequent Annual Wellness Exam 13:55:04 CDT CPT-G0438 Initial Annual Wellness Exam 11:23:17 CD T CPT-J2930 Solu Medrol 125 mg (Methyl Prednisolone Sodium Succinate) 17:29:12 PEDIATRIC LPN CPT-62844 Abx/Therapy Injection 17:29:11 PEDIATRIC LPN CPT-J2930 Solu Medrol 125 mg (Methyl Prednisolone Sodium Succinate) 12:34:38 PEDIATRIC LPN CPT-J3420 Vitamin B12 1000mcg (Cyanocobalamin) 09:12:55 CDT CPT-J3420 Vitamin B12 1000mcg (Cyanocobalamin) 16:28:06 PEDIATRIC LPN CPT-39872 Venipuncture Draw Fee 08:39:53 CDT CPT-J3420 Vitamin B12 1000mcg (Cyanocobalamin) 08:46:22 CDT CPT-02089 Abx/Therapy Injection 08:46:22 CDT CPT-J3420 Vitamin B12 1000mcg (Cyanocobalamin) 08:41:26 CDT CPT-78636 Abx/Therapy Injection 08:41:26 CDT CPT-J3420 Vitamin B12 1000mcg (Cyanocobalamin) 08:57:15 CDT CPT-29562 Abx/Therapy Injection 08:57:15 CDT CPT-J3420 Vitamin B12 1000mcg (Cyanocobalamin) 10:59:03 CDT CPT-10359 Abx/Therapy Injection 10:59:03 CDT CPT-J3420 Vitamin B12 1000mcg (Cyanocobalamin) 15:05:39 CDT CPT-91542 Abx/Therapy Injection 15:05:39 CDT CPT-J3420 Vitamin B12 1000mcg (Cyanocobalamin) 13:50:45 CDT CPT-J3420 Vitamin B12 1000mcg (Cyanocobalamin) 08:48:55 CDT CPT-98538 Abx/Therapy Injection 08:48:55 CDT CPT-J3420 Vitamin B12 1000mcg (Cyanocobalamin) 09:14:54 CDT CPT-47835 Abx/Therapy Injection 09:14:54 CDT CPT-J3420 Vitamin B12 1000mcg (Cyanocobalamin) 09:06:06 CDT CPT-27771 Abx/Therapy Injection 09:06:06 CDT CPT-J3420 Vitamin B12 1000mcg (Cyanocobalamin) 09:49:14 CDT CPT-63470 Abx/Therapy Injection 09:49:14 CDT CPT-J3420 Vitamin B12 1000mcg (Cyanocobalamin) 09:10:30 PEDIATRIC LPN CPT-03672 Abx/Therapy Injection 09:10:30 PEDIATRIC LPN CPT-J3420 Vitamin B12 1000mcg (Cyanocobalamin) 09:11:07 PEDIATRIC LPN CPT-63881 Abx/Therapy Injection 09:11:07 PEDIATRIC LPN CPT-J3420 Vitamin B12 1000mcg (Cyanocobalamin) 09:57:03 PEDIATRIC LPN CPT-73968 Abx/Therapy Injection 09:57:03 PEDIATRIC LPN CPT-J3420 Vitamin B12 1000mcg (Cyanocobalamin) 09:23:21 PEDIATRIC LPN CPT-35534 Abx/Therapy Injection 09:23:21 PEDIATRIC LPN CPT-97348 Urine Dip (Floor Use Only) 20:21:44 PEDIATRIC LPN 201 02/12/11 CPT-65751 UA Dip Auto (Floor Use Only) 10:04:39 PEDIATRIC LPN 2 CPT-83244 Urine Dip (Floor Use Only) 13:27:28 PEDIATRIC LPN 201 02/12/01 CPT-91304 Bladder Scan 13:27:28 PEDIATRIC LPN CPT-75694 Abd single AP View 14:30:51 PEDIATRIC LPN CPT-OV Office Visit 10:15:43 CDT CPT-42511 Urine Dip (Floor Use Only) 17:22:21 CDT 201 02/09/02 CPT-76554 Bladder Scan 17:22:21 CDT
--- OUTSIDE RECORDS SUMMARY | 2020-05-05 11:54 | XMS REPORT | Clinical Summary ---
Author Author Talon, Jeri Wood Organization [facility] Address Unknown Phone Unavailable Allergies, Adverse Reactions, [...] emptying WELL WOMAN EXAMINATION V72.31 Resolved Wilner Shermna MD Routine gynecological examination WELL WOMAN EXAMINATION [...] Sherman MD Routine general medical examination at [facility] acility Sinusitis 461.9 Resolved Tesfaye Sherman MD [...] Tesfaye Sherman MD Dysuria High risk meds meterman use V58.6 Active Tesfaye Sherman MD Long-term (current) drug use Yeast infection 112.9 Inactive Tesfaye Sherman MD Candidiasis of unspecified site Upper respiratory infection 465.9 Inactive Tesfaye Sherman MD Acute upper respiratory infections of un specified site Lower extremity edema, bilateral 782.3 Active 201 07/07/09 León Kodi [employer] Edema Peripheral neuropathy 356.9 Active Tesfaye lamb [...] Inactive Tesfaye Owusu Dysuria ICD-788.1 Inactive Tesfaye Sheramn MD 201 07/05/07 Depression ICD-311 Inactive Tesfaye Sherman MD Toe pain, right ICD-729.5 Inactive Tesfaye lamb MD Foot pain, right ICD-729.5 Inactive Tesfaye barron MD Joint pain ICD-719.40 Inactive Tesfaye Sherman MD Dysuria ICD-788.1 Inactive Tesfaye Sherman MD 201 07/05/07 Preventive health care ICD-V70.0 Inactive Wilner Sherman MD Vertigo ICD-780.4 Inactive Tesfaye Sherman MD 201 07/05/07 Body Mass Index 20.0-20.9 Adult Eldon Shah [facility] Dysuria ICD-788.1 Inactive Tesfaye Sherman MD 201 07/05/07 Yeast infection ICD-112.9 Inactive Tesfaey lamb MD Upper respiratory infection ICD-465.9 Inactive Tesfaye Sherman MD Overweight (BMI 25-29.9) Inactive Adriana Arredondo [facility] Medication List Medication Instructions Start Date Stop Date Generic Name NDC Status Provider Patient Instruction AMITRIPTYLINE HCL 10 MG ORAL TABLET take 1 tab po qhs for neurop athy AMITRIPTYLINE HCL 18344856049 Active Tesfaye Sherman MD Active FUROSEMIDE 20 MG ORAL TABLET take 1/2 to 1 tablet by mouth d aily prn swelling FUROSEMIDE 48388694037 Active Tesfaye Sherman MD Active FENOFIBRATE 145 MG ORAL TABLET Take 1 tablet by mouth once daily 20 23/12/19 FENOFIBRATE 06344030819 Active Tesfaye Sherman MD Active PRAMIPEXOLE DIHYDROCHLORIDE 0.75 MG ORAL TABLET take 1 tab po qhs for restless leg syndrome. PRAMIPEXOLE DIHYDROCHLORIDE 08654595889 Acti ve Tesfaye Sherman MD Active DIFLUCAN 100 MG ORAL TABLET 1 tablet by mouth daily 20 23/12/05 FLUCONAZOLE 31440075849 No Longer Active Tesfaye Sherman MD Acti ve [facility] NIACIN FLUSH FREE 400-100 MG ORAL CAPSULE 1 daily NIACIN-INOSITOL 08575486347 No Longer Active Tesfaye Sherman MD A ctive FISH OIL 1000 MG ORAL CAPSULE DELAYED RELEASE 1 pill b y mouth daily for cholesterol OMEGA-3 FATTY ACIDS 44350634797 No Longe r Active Tesfaye Sherman MD Active UNISOM SLEEPMELTS 25 MG ORAL TABLET DISINTEGRATING 1.5 po q hs DIPHENHYDRAMINE HCL (SLEEP) 10539125058 No Longer Active Venkata Sherman MD Active PREDNISONE 20 MG ORAL TABLET 1 tab twice daily for 3 d ay, then one daily for three days PREDNISONE 68681027628 No Longer Active Tesfaye Sherman MD Active BACLOFEN 10 MG ORAL TABLET Take one tablet by mouth three times a day BACLOFEN 61074485022 No Longer Active Tesfaye Sherman MD Active LIDOCAINE 4 % EXTERNAL CREAM Apply to back prn pain LIDOCAINE 67828406100 Active Tesfaye Sherman MD Active TIZANIDINE HCL 2 MG ORAL TABLET 2 Mg in the AM and 6mg q hs 07/05 TIZANIDINE HCL 23762281726 Active Tesfaye Sherman MD Active HYDROXYZINE HCL 25 MG TABS TAKE 1 TABLET BY MOUTH AT B EDTIME NEEDED FOR SLEEP HYDROXYZINE HCL 43854878428 Active JOSHUA Lindsay Active FLUCONAZOLE 100 MG ORAL TABLET 1 by mouth daily for yeast infect ion FLUCONAZOLE 00651213897 No Longer Active Laurence Dominguez Acti ve ZITHROMAX 250 MG ORAL TABLET 2 po today, then 1 po q days 2-5 20 21/08/28 AZITHROMYCIN 24480570096 No Longer Active Tesfaye Sherman MD Active DIFLUCAN 100 MG ORAL TABLET 1 tablet by mouth daily 20 21/08/28 FLUCONAZOLE 52046630888 No Longer Active Tesfaye Sherman MD Acti ve HYDROXYZINE HCL 25 MG ORAL TABLET 1 tab po at HS prn sleep 08/02 HYDROXYZINE HCL 36289689861 No Longer Active Tesfaye Sherman MD Active MIRAPEX 0.5 MG ORAL TABLET 1 tablet at night for restless leg. 2018 PRAMIPEXOLE DIHYDROCHLORIDE 70742164106 Active Laurence Dominguez Active MIRAPEX 0.25 MG ORAL TABLET 1 tablet by mouth at night for r estless leg PRAMIPEXOLE DIHYDROCHLORIDE 97417599308 No Longer Act trent Laurence Dominguez Active MIRAPEX 0.125 MG ORAL TABLET 1 po nightly PRAMIPEXOLE DIHYDROCHLORIDE 58627299480 No Longer Active Laurenceyohana Dominguez Active ROPINIROLE HCL 2 MG ORAL TABLET 1 po at hs ROPI NIROLE HCL 42921600975 No Longer Active Laurence Raida Active ROPINIROLE HCL 1 MG ORAL TABLET 1 tab po q hs ROPINIROLE HCL 07157620546 No Longer Active Laurence Dominguez Active ROPINIROLE HCL 0.5 MG ORAL TABLET 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 ROPINIROLE HCL 59968034799 No Longer Active MARCUS Panchal Active ROPINIROLE HCL 0.25 MG ORAL TABLET 1 TAB PO Q HS 05/31 ROPINIROLE HCL 74134317225 No Longer Active Tesfaye Sherman MD Ac tive PREDNISONE 20 MG ORAL TABLET 1 tab twice daily for 3 d ay, then one daily for three days PREDNISONE 71862139455 No Longer Active Tesfaye Sherman MD Active AMITRIPTYLINE HCL 50 MG ORAL TABLET 1 po q hs for sleep AMITRIPTYLINE HCL 07781745722 No Longer Active Tesfaye Sherman MD Active AMITRIPTYLINE HCL 10 MG ORAL TABLET 1 tablet nightly by mout h for neuropathy AMITRIPTYLINE HCL 82006824078 No Longer Active MARCUS Stapleton Active DIFLUCAN 100 MG ORAL TABLET 1 tablet by mouth daily 21/03/11 FLUCONAZOLE 14852128606 No Longer Active Tesfaye Sherman MD Acti ve BACTRIM DS 800-160 MG ORAL TABLET 1 tab by mouth twice daily 201 07/08/06 TRIMETHOPRIM-SULFAMETHOXAZOLE 34053340555 No Longer Active Umer Sherman MD Active CLARITIN 10 MG ORAL TABLET Take one by mouth daily LORATADINE 48574516325 Active Tesfaye Sherman MD Active SUDAFED 12 HOUR 120 MG ORAL TABLET EXTENDED RELEASE 12 HOUR 1 pill twice daily if needed for congestion PSEUDOEPHEDRINE HCL 795623311 13 No Longer Active Tesfaye Sherman MD Active GABAPENTIN 300 MG ORAL CAPSULE 1 po daily GABAP ENTIN 39008493457 No Longer Active Tesfaye Sherman MD Active HYDROCHLOROTHIAZIDE 12.5 MG ORAL CAPSULE 1 pill by mough daily 2 HYDROCHLOROTHIAZIDE 89501644236 No Longer Active Leónkash Mariee APRN Active VENLAFAXINE HCL 75 MG ORAL TABLET 1 am 1 at noon 201 07/07/09 VENLAFAXINE HCL 97567292384 No Longer Active León Mariee APRN Act trent DIFLUCAN 100 MG ORAL TABLET 1 tablet by mouth daily 20 19/02/09 FLUCONAZOLE 66381864526 No Longer Active León Kodi [employer] Active DIFLUCAN 100 MG ORAL TABLET 1 tablet by mouth daily 20 19/02/09 FLUCONAZOLE 97534955885 No Longer Active 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 Use sparingly OXYCODONE-ACETAMINOPHEN 91046936354 Active Tesfaye villar MD Active CLONAZEPAM 0.5 MG ORAL TABLET Take 1/2 qam, and 1/2 qpm CLONAZEPAM 32903399320 Active Tesfaye Sherman MD Active PRELIEF 340 (65-50) MG (CA-P) ORAL TABLET CALCIUM GLYCEROPHOSPHATE 97567297178 No Longer Active Tesfaye Sherman MD Active SUDAFED 24 HOUR 240 MG ORAL TABLET EXTENDED RELEASE 24 HOUR 1 tab po daily PSEUDOEPHEDRINE HCL 91551569988 No Longer Active Raul Sherman MD Active RED YEAST RICE 600 MG ORAL CAPSULE 1 pill by mouth daily RED YEAST RICE EXTRACT 53412283001 No Longer Active Tesfaye Sherman MD Active REPHRESH PRO-B ORAL CAPSULE 1 tablet daily LACT OBACILLUS 49489770091 No Longer Active Tesfaye Sherman MD Active ABILIFY 2 MG ORAL TABLET 1 by mouth daily. MARIA ELENA PIPRAZOLE 01135080878 Active Tesfaye Sherman MD Active CYMBALTA 60 MG ORAL CAPSULE DELAYED RELEASE PARTICLES 1 cap by mouth daily for pain DULOXETINE HCL 69294763150 Active MARCUS Lindsay Active DIFLUCAN 100 MG ORAL TABLET 1 tablet by mouth daily 20 20/06/06 FLUCONAZOLE 84305774322 No Longer Active Tesfaye Sherman MD Acti ve PREDNISONE 20 MG ORAL TABLET 1 tablet by mouth twice d aily for 3 days, then 1 tablet daily for 3 days PREDNISONE 77052432356 No L onger Active Tesfaye Sherman MD Active BACTRIM DS 800-160 MG ORAL TABLET 1 tab by mouth twice daily 201 06/09/02 TRIMETHOPRIM-SULFAMETHOXAZOLE 62236735274 No Longer Active A mirna Dominguez Active DIFLUCAN 100 MG ORAL TABLET 1 tablet by mouth daily 20 20/05/01 FLUCONAZOLE 15596694090 No Longer Active Tesfaye Sherman MD Acti ve ZITHROMAX 250 MG ORAL TABLET 2 po today, then 1 po q days 2-5 20 20/04/28 AZITHROMYCIN 69859059775 No Longer Active Tesfaye Sherman MD Active MECLIZINE HCL 25 MG ORAL TABLET one tab po qday prn dizziness 20 17/09/06 MECLIZINE HCL 46435609476 No Longer Active Tesfaye Sherman MD Active PROAIR HFA 108 (90 BASE) MCG/ACT INHALATION AEROSOL SO LUTION 1 puff every 6 hours as needed ALBUTEROL SULFATE 28031333238 No Long er Active Tesfaye Sherman MD Active PREDNISONE 20 MG ORAL TABLET 1 tab twice daily for 3 d ay, then one daily for three days PREDNISONE 57083398953 No Longer Active Tesfaye Sherman MD Active MECLIZINE HCL 25 MG ORAL TABLET one 4 times a day as needed for dizziness MECLIZINE HCL 48556403156 Active Tesfaye Sherman MD Active AMOXICILLIN 500 MG ORAL CAPSULE 1 cap by mouth three times a day AMOXICILLIN 03032150513 No Longer Active Laurence Dominguez Acti ve DIFLUCAN 100 MG ORAL TABLET 1 tablet by mouth daily 19/08/26 FLUCONAZOLE 91600885230 No Longer Active Tesfaye Sherman MD Acti ve BACTRIM DS 800-160 MG ORAL TABLET 1 tab by mouth twice daily 201 05/10/28 TRIMETHOPRIM-SULFAMETHOXAZOLE 61182160935 No Longer Active Fer Dominguez Active FOSAMAX 70 MG ORAL TABLET 1 po qweek. Take 30min prio r to first food/drink. Avoid lying down x 1 hour. ALENDRONATE SODIUM 68498621 144 No Longer Active Laurence Dominguez Active CYMBALTA 60 MG ORAL CAPSULE DELAYED RELEASE PARTICLES Take 1 tablet by mouth daily DULOXETINE HCL 24300743391 No Longer Active Edith Burch MD Active CYMBALTA 30 MG ORAL CAPSULE DELAYED RELEASE PARTICLES 1 cap by mouth daily with 60mg DULOXETINE HCL 07647434629 No Longer Active Jordan Burch MD Active DIFLUCAN 100 MG ORAL TABLET 1 tablet by mouth daily 20 19/03/05 FLUCONAZOLE 43383719224 No Longer Active Tesfaye Sherman MD Acti ve BACTRIM DS 800-160 MG ORAL TABLET 1 tab by mouth twice daily 201 05/06/28 TRIMETHOPRIM-SULFAMETHOXAZOLE 13872281665 No Longer Active D patricia Sherman MD Active BACTRIM DS 800-160 MG ORAL TABLET 1 tab by mouth twice daily 201 05/04/15 TRIMETHOPRIM-SULFAMETHOXAZOLE 10944169077 No Longer Active Umer Sherman MD Active DIFLUCAN 150 MG ORAL TABLET 1 tablet by mouth daily 20 18/09/20 FLUCONAZOLE 87856528821 No Longer Active Tesfaye Sherman MD Acti ve BACTRIM DS 800-160 MG ORAL TABLET 1 tab by mouth twice daily 201 04/13/17 TRIMETHOPRIM-SULFAMETHOXAZOLE 81146358206 No Longer Active Umer Sherman MD Active CEFTIN 250 MG ORAL TABLET 1 tablet twice daily x 7 days CEFUROXIME AXETIL 65625576254 No Longer Active Tesfaye Sherman MD Active DIFLUCAN 100 MG ORAL TABLET 1 tablet by mouth every other da y for 2 doses FLUCONAZOLE 29887224146 No Longer Active Tesfaye barron MD Active DIFLUCAN 100 MG ORAL TABLET 1 tablet by mouth daily X 3 DAYS 201 04/09/01 FLUCONAZOLE 06931277301 No Longer Active Rj Lyons tive MIRTAZAPINE 15 MG ORAL TABLET 1/2 tab by mouth at bedtime. 03/13 MIRTAZAPINE 39289683772 No Longer Active Tesfaye Sherman MD Active BACTRIM DS 800-160 MG ORAL TABLET 1 tab by mouth twice daily 201 04/09/01 TRIMETHOPRIM-SULFAMETHOXAZOLE 38400363139 No Longer Active Umer Sherman MD Active PRAMIPEXOLE DIHYDROCHLORIDE 0.125 MG ORAL TABLET take 1 tablet po qhs for restless leg syndrome. PRAMIPEXOLE DIHYDROCHLORI DE 42721169351 No Longer Active Tesfaye Sherman MD Active MAGNESIUM 400 MG ORAL TABLET 1 tab po daily MAGNE SIUM 60104384361 Active Chelsea Cardenas APRN Active CETIRIZINE HCL 5 MG ORAL TABLET Take 1 tablet by mouth daily CETIRIZINE HCL 54548920581 No Longer Active Chelsea Cardenas APRN Activ e TRIMETHOPRIM 100 MG ORAL TABLET 1/2 qd TRIM ETHOPRIM 58184386793 No Longer Active Chelsea Cardenas APRN Active BACTRIM DS 800-160 MG ORAL TABLET 1 tab by mouth twice daily 201 04/04/11 TRIMETHOPRIM-SULFAMETHOXAZOLE 65756173393 No Longer Active Umer Sherman MD Active BACTRIM DS 800-160 MG ORAL TABLET 1 tab by mouth twice daily X 10 DAYS TRIMETHOPRIM-SULFAMETHOXAZOLE 33908769390 No Longer Active Tesfaye Sherman MD Active AMOXICILLIN 500 MG ORAL CAPSULE 1 cap by mouth three times a day AMOXICILLIN 74676695364 No Longer Active Adriana Arredondo, A A ctive B-12 1000 MCG ORAL LOZENGE 1 tab po daily CYANO COBALAMIN 57429731949 Active Tesfaye Sherman MD Active VITAMIN D3 2000 UNIT ORAL TABLET 1 daily, for vitamin D deficien cy CHOLECALCIFEROL 23973329639 No Longer Active Tesfaye Sherman MD Active ZITHROMAX 250 MG ORAL TABLET 2 po today, then 1 po q days 2-5 20 15/02/10 AZITHROMYCIN 46181816614 No Longer Active Tesfaye Sherman MD Active BACTRIM DS 800-160 MG ORAL TABLET 1 tab by mouth twice daily 201 03/03/23 TRIMETHOPRIM-SULFAMETHOXAZOLE 57013625988 No Longer Active Umer Sherman MD Active DIFLUCAN 150 MG ORAL TABLET 1 qd FLUCONAZOL E 30409797646 No Longer Active Kayla Cooper MD Active FLUTICASONE PROPIONATE 50 MCG/ACT NASAL SUSPENSION 1 spray each nostril twice daily FLUTICASONE PROPIONATE 18151922206 Active Umer Sherman MD Active LOVASTATIN 20 MG ORAL TABLET Take 1 tablet by mouth daily LOVASTATIN 73289072273 No Longer Active Tesfaye Sherman MD Acti ve MELOXICAM 7.5 MG ORAL TABLET 1 tablet by mouth daily 2 MELOXICAM 19576226880 No Longer Active Tesfaye Sherman MD Acti ve GABAPENTIN 300 MG ORAL CAPSULE Take two tablets by mouth every e vening GABAPENTIN 33910348476 No Longer Active Edith [place] ctive GABAPENTIN 300 MG ORAL CAPSULE Take two tablets by mouth every e vening GABAPENTIN 300 MG ORAL CAPSULE 471503 GABAPENTIN I nactive MELOXICAM 7.5 MG ORAL TABLET 1 tablet by mouth daily 2 MELOXICAM 7.5 MG ORAL TABLET 068333 MELOXICAM Inactive LOVASTATIN 20 MG ORAL TABLET Take 1 tablet by mouth daily LOVASTATIN 20 MG ORAL TABLET 995357 LOVASTATIN Inactive DIFLUCAN 150 MG ORAL TABLET 1 qd DIFLUCAN 150 MG ORAL TABLET 010190 FLUCONAZOLE Inactive VITAMIN D3 2000 UNIT ORAL TABLET 1 daily, for vitamin D deficien cy VITAMIN D3 2000 UNIT ORAL TABLET CHOLECALCIFEROL Inactive AMOXICILLIN 500 MG ORAL CAPSULE 1 cap by mouth three times a day AMOXICILLIN 500 MG ORAL CAPSULE 057597 AMOXICILLIN Inactive BACTRIM DS 800-160 MG ORAL TABLET 1 tab by mouth twice daily X 10 DAYS BACTRIM DS 800-160 MG ORAL TABLET 265365 TRIMETHOPRIM-SULFAMETHOXAZOLE Inactive TRIMETHOPRIM 100 MG ORAL TABLET 1/2 qd 7 TRIMETHOPRIM 100 MG ORAL TABLET 865466 TRIMETHOPRIM Inactive CETIRIZINE HCL 5 MG ORAL TABLET Take 1 tablet by mouth daily CETIRIZINE HCL 5 MG ORAL TABLET 7844504 CETIRIZINE HCL Inactive PRAMIPEXOLE DIHYDROCHLORIDE 0.125 MG ORAL TABLET take 1 tablet po qhs for restless leg syndrome. PRAMIPEXOLE DIHYD ROCHLORIDE 0.125 MG ORAL TABLET 074553 PRAMIPEXOLE DIHYDROCHLORIDE Inactive MIRTAZAPINE 15 MG ORAL TABLET 1/2 tab by mouth at bedtime. 03/13 MIRTAZAPINE 15 MG ORAL TABLET 312264 MIRTAZAPINE In active DIFLUCAN 100 MG ORAL TABLET 1 tablet by mouth daily X 3 DAYS 201 04/09/01 DIFLUCAN 100 MG ORAL TABLET 243016 FLUCONAZOLE Inac tive DIFLUCAN 100 MG ORAL [...] 30 MG ORAL CAPSULE DELAYED RELEASE PARTICLES 327644 DULOXETINE HCL Inactive CYMBALTA 60 MG ORAL CAPSULE DELAYED RELEASE PARTICLES Take 1 tablet by mouth daily CYMBALTA 60 MG ORAL CAPSULE DELAYED RELEA SE PARTICLES 640876 DULOXETINE HCL Inactive FOSAMAX 70 MG ORAL TABLET 1 po qweek. Take 30min prio r to first food/drink. Avoid lying down x 1 hour. FOSAMAX 70 MG ORAL TA BLET 359127 ALENDRONATE SODIUM Inactive DIFLUCAN 100 MG ORAL TABLET 1 tablet by mouth daily 19/08/26 DIFLUCAN 100 MG ORAL TABLET 19760711 FLUCONAZOLE Inactive PREDNISONE 20 MG ORAL TABLET 1 tab twice daily for 3 d ay, then one daily for three days PREDNISONE 20 MG ORAL TABLET 008276 PREDNIS ONE Inactive PROAIR HFA 108 (90 BASE) MCG/ACT INHALATION AEROSOL SO LUTION 1 puff every 6 hours as needed PROAIR HFA 108 (90 B ASE) MCG/ACT INHALATION AEROSOL SOLUTION ALBUTEROL SULFATE Inactive MECLIZINE HCL 25 MG ORAL TABLET one tab po qday prn dizziness 20 17/09/06 MECLIZINE HCL 25 MG ORAL TABLET 398497 MECLIZINE HCL Inactive PREDNISONE 20 MG ORAL TABLET 1 tablet by mouth twice d aily for 3 days, then 1 tablet daily for 3 days PREDNISONE 20 MG ORAL TA BLET 636120 PREDNISONE Inactive DIFLUCAN 100 MG ORAL TABLET 1 tablet by mouth daily 20 20/06/06 DIFLUCAN 100 MG ORAL TABLET 994898 FLUCONAZOLE Inactive REPHRESH PRO-B ORAL CAPSULE 1 tablet daily REPHRESH PRO-B ORAL CAPSULE LACTOBACILLUS Inactive RED YEAST RICE 600 MG ORAL CAPSULE 1 pill by mouth daily RED YEAST RICE 600 MG ORAL CAPSULE 585921 RED YEAST RICE EXTRACT In active SUDAFED [...] daily 19/02/09 DIFLUCAN 100 MG ORAL TABLET 754939 FLUCONAZOLE Inactive DIFLUCAN 100 MG ORAL TABLET 1 tablet by mouth daily 19/02/09 DIFLUCAN 100 MG ORAL TABLET 710476 FLUCONAZOLE Inactive VENLAFAXINE HCL 75 MG ORAL TABLET 1 am 1/2 at noon 201 07/07/09 VENLAFAXINE HCL 75 MG ORAL TABLET 983165 VENLAFAXINE HCL Inacti ve GABAPENTIN 300 MG ORAL CAPSULE 1 po daily GABAPENTIN 300 MG ORAL CAPSULE 768385 GABAPENTIN Inactive SUDAFED 12 HOUR 120 MG ORAL TABLET EXTENDED RELEASE 12 HOUR 1 pill twice daily if needed for congestion SUDAFED 12 HOUR 120 MG ORAL TABLET EXTENDED RELEASE 12 HOUR PSEUDOEPHEDRINE HCL Inactive AMITRIPTYLINE HCL 10 MG ORAL TABLET 1 tablet nightly by mout h for neuropathy AMITRIPTYLINE HCL 10 MG ORAL TABLET 539633 AMITRIPTYLINE HCL Inactive AMITRIPTYLINE HCL 50 MG ORAL TABLET 1 po q hs for sleep AMITRIPTYLINE HCL 50 MG ORAL TABLET 316606 AMITRIPTYLINE HCL Inac tive PREDNISONE 20 MG ORAL TABLET 1 tab twice daily for 3 d ay, then one daily for three days PREDNISONE 20 MG ORAL TABLET 114257 PREDNIS ONE Inactive ROPINIROLE HCL 0.25 MG ORAL TABLET 1 TAB PO Q HS 05/31 ROPINIROLE HCL 0.25 MG ORAL TABLET 345101 ROPINIROLE HCL Inact trent ROPINIROLE HCL 0.5 MG ORAL TABLET 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 ROPINIROLE HCL 0.5 MG ORAL TABLET 880049 ROPINIR OLE HCL Inactive ROPINIROLE HCL 1 MG ORAL TABLET 1 tab po q hs ROPINIROLE HCL 1 MG ORAL TABLET 185446 ROPINIROLE HCL Inactive ROPINIROLE HCL 2 MG ORAL TABLET 1 po at hs 7 ROPINIROLE HCL 2 MG ORAL TABLET 032976 ROPINIROLE HCL Inactive MIRAPEX 0.125 MG ORAL TABLET 1 po nightly MIRAPEX 0.125 MG ORAL TABLET 219664 PRAMIPEXOLE DIHYDROCHLORIDE Inactive MIRAPEX 0.25 MG ORAL TABLET 1 tablet by mouth at night for r estless leg MIRAPEX 0.25 MG ORAL TABLET PRAMIPEXOLE D IHYDROCHLORIDE Inactive HYDROXYZINE HCL 25 MG ORAL TABLET 1 tab po at HS prn sleep 08/02 HYDROXYZINE HCL 25 MG ORAL TABLET 630217 HYDROXYZINE HC L Inactive DIFLUCAN 100 MG ORAL TABLET 1 tablet by mouth daily 21/08/28 DIFLUCAN 100 MG ORAL TABLET 828184 FLUCONAZOLE Inactive BACLOFEN 10 MG ORAL TABLET Take one tablet by mouth three times a day BACLOFEN 10 MG ORAL TABLET 128820 BACLOFEN Inact trent PREDNISONE 20 MG ORAL TABLET 1 tab twice daily for 3 d ay, then one daily for three days PREDNISONE 20 MG ORAL TABLET 889047 PREDNIS ONE Inactive UNISOM SLEEPMELTS 25 MG [...] 03/03/23 BACTRIM DS 800-160 MG ORAL TABLET 938895 TRIMETHOPRIM-SULFAMETHOXAZOLE Inactive ZITHROMAX 250 MG ORAL TABLET 2 po today, then 1 po q days 2-5 20 15/02/10 ZITHROMAX 250 MG ORAL TABLET 727973 AZITHROMYCIN Geismar ctive BACTRIM DS 800-160 MG ORAL TABLET [...] 04/13/17 BACTRIM DS 800-160 MG ORAL TABLET 869730 TRIMETHOPRIM-SULFAMETHOXAZOLE Inactive DIFLUCAN 150 MG ORAL TABLET [...] 05/06/28 BACTRIM DS 800-160 MG ORAL TABLET 075966 TRIMETHOPRIM-SULFAMETHOXAZOLE Inactive DIFLUCAN 100 MG ORAL TABLET 1 tablet by mouth daily 20 19/03/05 DIFLUCAN 100 MG ORAL TABLET 454049 FLUCONAZOLE Inactive BACTRIM DS 800-160 MG ORAL TABLET 1 tab by mouth twice daily 201 05/10/28 BACTRIM DS 800-160 MG ORAL TABLET 19830105 TRIMETHOPRIM-SULFAMETHOXAZOLE Inactive AMOXICILLIN 500 MG ORAL CAPSULE 1 cap by mouth three times a day AMOXICILLIN 500 MG ORAL CAPSULE 002581 AMOXICILLIN Inactive ZITHROMAX 250 MG ORAL TABLET 2 po today, then 1 po q days 2-5 20 20/04/28 ZITHROMAX 250 MG ORAL TABLET 996169 AZITHROMYCIN Geismar ctive DIFLUCAN 100 MG ORAL TABLET 1 [...] 20 21/08/28 ZITHROMAX 250 MG ORAL TABLET 321272 AZITHROMYCIN Mayela ctive FLUCONAZOLE 100 MG ORAL [...] LIVING WILL ON FILE DURABLE POWER OF DIRECTOR OF PHILANTHROPY FOR HEALTHCARE Vital Signs Date Name Value [...] lyon blood pressure, diastolic 66 mm[Hg] BP lyno blood pressure, systolic, repeated by physician 118 [...] Magnesium - Chemistry cholesterol, serum 196 mg/dL 193-192 8843/07/30 triglyceride, serum, fasting 86 mg/dL 30-200 HDL cholesterol, serum 41 mg/dL 32-60 LDL cholesterol, serum 138 mg/dL 0-130 sodium, serum 140 mmol/L 595-231 6121/07/30 carbon dioxide, venous blood 28.6 mmol/L 21.0-32 [...] 5.0-8.5 Encounters Code Encounter Date Provider Facility CPT-06540 [id number] Vst-Est Level IV 08:56:46 C BRIDGET Sherman MD [facility] CPT-96520 [id number] Vst-Est Level IV 10:36:10 C BRIDGET Sherman MD [facility] CPT-66769 [id number] Vst-Est Level IV 13:49:08 [employer] Mendy buzzkathi Stovallord [facility] CPT-71963 [id number] Vst-Est Level IV 11:39:[address] Tesfaye Sherman MD [facility] CPT-68762 [id number] Vst-Est Level IV 14:08:03 C BRIDGET Sherman MD [facility] CPT-87019 Level 3 Est. Patient 18:06:36 CDT Tesfaye pearson MD [facility] CPT-50645 [id number] Vst-Est Level IV 17:09:34 C BRIDGET Sherman MD [facility] CPT-22838 Level 3 Est. Patient 17:27:08 CDT León hernandez APRN [facility] CPT-61145 [id number] Vst-Est Level IV 14:00:[address] Tesfaye Sherman MD [facility] CPT-33533 [id number] Vst-Est Level IV 19:27:[address] Tesfaye Sherman MD [facility] CPT-63436 [id number] Vst-Est Level IV 10:41:41 C BRIDGET Sherman MD [facility] CPT-96223 [id number] Vst-Est Level III 09:40:56 CDT Tesfaye Sherman MD [facility] CPT-45979 Level 4 Est. Patient 22:18:12 CDT Tesfaye pearson MD [facility] CPT-32513 Level 4 Est. Patient 14:44:33 [employer] Tesfaye pearson MD [facility] CPT-29703 Level 4 Est. Patient 13:55:29 [employer] Tesfaye pearson MD [facility]-08326 Level 4 Est. Patient 17:07:34 [employer] Tesfaye pearson MD [facility]-68052 Level 4 Est. Patient 13:56:54 CDT Tesfaye pearson MD [facility]-61999 Level 4 Est. Patient 13:24:25 CDT Chelsea sanz APRN [facility] CPT-14338 Level 4 Est. Patient 09:14:56 CDT Tesfaye pearson MD [facility]-18625 Level 4 Est. Patient 18:40:25 [employer] Tesfaye pearson MD [facility]-49082 Level 4 Est. Patient 18:13:07 [employer] Tesfaye pearson MD [facility] CPT-01864 Level 3 Est. Patient 10:46:32 CDT Rj cotto DO [facility]-33611 Level 4 Est. Patient 20:19:25 CDT Tesfaye pearson MD [facility]-93818 Level 3 Est. Patient 09:07:31 CDT Tesfaye pearson MD [facility]-30747 Level 4 Est. Patient 13:12:56 CDT Tesfaye pearson MD [facility]-43478 Level 4 Est. Patient 21:24:55 [employer] Tesfaye pearson MD [facility]-53794 Level 3 Est. Patient 13:45:04 [employer] Tesfaye pearson MD [facility] CPT-45246 Level 4 Est. Patient 13:50:45 CDT Tesfaye pearson MD [facility] CPT-69216 Level 3 Est. Patient 10:16:10 CDT Tesfaye perason MD [facility] CPT-35665 Level 3 Est. Patient 16:36:07 [employer] Kayla jameson MD [facility] CPT-58418 Level 4 Est. Patient 16:00:14 [employer] Tesfaye pearson MD [facility] CPT-70653 Level 4 Est. Patient 11:02:24 [employer] Tesfaye pearson MD [facility] CPT-61634 Level 3 Est. Patient 20:21:43 [employer] Kayla jameson MD [facility] CPT-71599 Level 3 Est. Patient 13:27:28 [employer] Kayla jameson MD [facility] CPT-50308 Level 4 Est. Patient 15:57:17 [employer] Tesfaye pearson MD [facility] CPT-81075 Level 3 New Patient 13:25:47 CDT Tesfaye kidd MD [facility] CPT-68870 Level 3 New Patient 17:22:21 CDT Kayla angel MD [facility] Procedures Code Procedure Name Date Entry Date Standard Desc ription CPT-85316 Venipuncture Draw Fee 10:04:55 CDT CPT-23649 Prv Med Est Pt 40-64yrs 09:01:58 CDT 03/09 CPT-G0439 Subsequent Annual Wellness Exam 11:25:51 CDT CPT-TY4391A ([id number] 2P) Patient Reason Influenza immu nization not administered 13:25:19 [employer] CPT-84614 Bone Density - XRAY USE ONLY 15:21:33 CDT CPT-98740 Venipuncture Draw Fee 16:12:22 CDT CPT-G0439 Subsequent Annual Wellness Exam 18:06:36 CDT CPT-G0439 Subsequent Annual Wellness Exam 22:18:11 CDT CPT-03844 Bone Density - XRAY USE ONLY 11:43:58 CDT 2 CPT-86578 Bone Density - XRAY USE ONLY 10:05:16 CDT 2 CPT-39118 Prv Med New Pt 40-64 yrs 18:19:25 CDT 2016 CPT-78525 Foot, right, comp min 3V - XRAY USE ONLY 10:38:34 CDT CPT-G0439 Subsequent Annual Wellness Exam 13:55:04 CDT CPT-G0438 Initial Annual Wellness Exam 11:23:17 CD T CPT-J2930 Solu Medrol 125 mg (Methyl Prednisolone Sodium Succinate) 17:29:12 [employer] CPT-40446 Abx/Therapy Injection 17:29:11 [employer] CPT-J2930 Solu Medrol 125 mg (Methyl Prednisolone Sodium Succinate) 12:34:38 [employer] CPT-J3420 Vitamin B12 1000mcg (Cyanocobalamin) 09:12:55 CDT CPT-J3420 Vitamin B12 1000mcg (Cyanocobalamin) 16:28:06 [employer] CPT-47405 Venipuncture Draw Fee 08:39:53 CDT CPT-J3420 Vitamin B12 1000mcg (Cyanocobalamin) 08:46:22 CDT CPT-08513 Abx/Therapy Injection 08:46:22 CDT CPT-J3420 Vitamin B12 1000mcg (Cyanocobalamin) 08:41:26 CDT CPT-80090 Abx/Therapy Injection 08:41:26 CDT CPT-J3420 Vitamin B12 1000mcg (Cyanocobalamin) 08:57:15 CDT CPT-91665 Abx/Therapy Injection 08:57:15 CDT CPT-J3420 Vitamin B12 1000mcg (Cyanocobalamin) 10:59:03 CDT CPT-46325 Abx/Therapy Injection 10:59:03 CDT CPT-J3420 Vitamin B12 1000mcg (Cyanocobalamin) 15:05:39 CDT CPT-38216 Abx/Therapy Injection 15:05:39 CDT CPT-J3420 Vitamin B12 1000mcg (Cyanocobalamin) 13:50:45 CDT CPT-J3420 Vitamin B12 1000mcg (Cyanocobalamin) 08:48:55 CDT CPT-00428 Abx/Therapy Injection 08:48:55 CDT CPT-J3420 Vitamin B12 1000mcg (Cyanocobalamin) 09:14:54 CDT CPT-03207 Abx/Therapy Injection 09:14:54 CDT CPT-J3420 Vitamin B12 1000mcg (Cyanocobalamin) 09:06:06 CDT CPT-49318 Abx/Therapy Injection 09:06:06 CDT CPT-J3420 Vitamin B12 1000mcg (Cyanocobalamin) 09:49:14 CDT CPT-62968 Abx/Therapy Injection 09:49:14 CDT CPT-J3420 Vitamin B12 1000mcg (Cyanocobalamin) 09:10:30 [employer] CPT-29708 Abx/Therapy Injection 09:10:30 [employer] CPT-J3420 Vitamin B12 1000mcg (Cyanocobalamin) 09:11:07 [employer] CPT-06747 Abx/Therapy Injection 09:11:07 [employer] CPT-J3420 Vitamin B12 1000mcg (Cyanocobalamin) 09:57:03 [employer] CPT-86974 Abx/Therapy Injection 09:57:03 [employer] CPT-J3420 Vitamin B12 1000mcg (Cyanocobalamin) 09:23:21 [employer] CPT-64004 Abx/Therapy Injection 09:23:21 [employer] CPT-10164 Urine Dip (Floor Use Only) 20:21:44 [employer] 201 02/12/11 CPT-33808 UA Dip Auto (Floor Use Only) 10:04:39 [employer] 2 CPT-29147 Urine Dip (Floor Use Only) 13:27:28 [employer] 201 02/12/01 CPT-64373 Bladder Scan 13:27:28 [employer] CPT-95835 Abd single AP View 14:30:51 [employer] CPT-OV Office Visit 10:15:43 CDT CPT-43357 Urine Dip (Floor Use Only) 17:22:21 CDT 201 02/09/02 CPT-90251 Bladder Scan 17:22:21 CDT
--- OUTSIDE RECORDS SUMMARY | 2020-05-05 11:54 | XMS REPORT | Clinical Summary ---
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 Tesfaye Sherman MD Long-term (current) drug use Yeast infection 112.9 Inactive Tesfaye Sherman MD Candidiasis of unspecified site Upper respiratory infection 465.9 Inactive Tesfaye Sherman MD Acute upper respiratory infections of un specified site Lower extremity edema, bilateral 782.3 Active 201 07/07/09 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 Edema Peripheral neuropathy 356.9 Active Tesfaye [...] Body Mass Index 20.0-20.9 Adult Eldon Shah [facility] Dysuria ICD-788.1 Inactive Tesfaye Sherman MD 201 07/05/07 Yeast infection ICD-112.9 Inactive Tesfaye lamb MD Upper respiratory infection ICD-465.9 Inactive Tesfaye Sherman MD Overweight (BMI 25-29.9) Inactive Adriana Arredondo [facility] Medication List Medication Instructions Start Date Stop Date Generic Name NDC Status Provider Patient Instruction FUROSEMIDE 20 MG ORAL TABLET take 1/2 to 1 tablet by mouth d aily prn swelling FUROSEMIDE [id number] Active Tesfaye Sherman MD Active FENOFIBRATE 145 MG ORAL TABLET Take 1 tablet by mouth once daily 20 23/12/19 FENOFIBRATE 28532825982 Active Tesfaye Sherman MD Active PRAMIPEXOLE DIHYDROCHLORIDE 0.75 MG ORAL TABLET take 1 tab po qhs for restless leg syndrome. PRAMIPEXOLE DIHYDROCHLORIDE [id number] Acti ve Tesfaye Sherman MD Active DIFLUCAN 100 MG ORAL TABLET 1 tablet by mouth daily 20 23/12/05 FLUCONAZOLE 01937511559 No Longer Active Tesfaye Sherman MD Acti ve [facility] NIACIN FLUSH FREE 400-100 MG ORAL CAPSULE 1 daily NIACIN-INOSITOL 22063051478 No Longer Active Tesfaye Sherman MD A ctive FISH OIL 1000 MG ORAL CAPSULE DELAYED RELEASE 1 pill b y mouth daily for cholesterol OMEGA-3 FATTY ACIDS 09686688341 No Longe r Active Tesfaye Sherman MD Active UNISOM SLEEPMELTS 25 MG ORAL TABLET DISINTEGRATING 1.5 po q hs DIPHENHYDRAMINE HCL (SLEEP) 74159409333 No Longer Active Venkata Sherman MD Active PREDNISONE 20 MG ORAL TABLET 1 tab twice daily for 3 d ay, then one daily for three days PREDNISONE 68913629941 No Longer Active Tesfaye Sherman MD Active BACLOFEN 10 MG ORAL TABLET Take one tablet by mouth three times a day BACLOFEN 00153387894 No Longer Active Tesfaye Sherman MD Active LIDOCAINE 4 % EXTERNAL CREAM Apply to back prn pain LIDOCAINE 52004077657 Active Tesfaye Sherman MD Active TIZANIDINE HCL 2 MG ORAL TABLET 2 Mg in the AM and 6mg q hs 07/05 TIZANIDINE HCL 20902031636 Active Tesfaye Sherman MD Active HYDROXYZINE HCL 25 MG TABS TAKE 1 TABLET BY MOUTH AT B EDTIME NEEDED FOR SLEEP HYDROXYZINE HCL 05908661135 Active JOSHUA Lindsay Active FLUCONAZOLE 100 MG ORAL TABLET 1 by mouth daily for yeast infect ion FLUCONAZOLE 30037946831 No Longer Active Laurence Dominguez Acti ve ZITHROMAX 250 MG ORAL TABLET 2 po today, then 1 po q days 2-5 20 21/08/28 AZITHROMYCIN 00225559662 No Longer Active Tesfaye Sherman MD Active DIFLUCAN 100 MG ORAL TABLET 1 tablet by mouth daily 20 21/08/28 FLUCONAZOLE 84270607743 No Longer Active Tesfaye Sherman MD Acti ve HYDROXYZINE HCL 25 MG ORAL TABLET 1 tab po at HS prn sleep 08/02 HYDROXYZINE HCL 02798700736 No Longer Active Tesfaye Sherman MD Active MIRAPEX 0.5 MG ORAL TABLET 1 tablet at night for restless leg. 2018 PRAMIPEXOLE DIHYDROCHLORIDE 86133364003 Active Laurenceyohana Lopezida Active MIRAPEX 0.25 MG ORAL TABLET 1 tablet by mouth at night for r estless leg PRAMIPEXOLE DIHYDROCHLORIDE 07672416156 No Longer Act trent Laurence Dominguez Active MIRAPEX 0.125 MG ORAL TABLET 1 po nightly PRAMIPEXOLE DIHYDROCHLORIDE 49248003661 No Longer Active Laurence Dominguez Active ROPINIROLE HCL 2 MG ORAL TABLET 1 po at hs ROPI NIROLE HCL 32028703059 No Longer Active Laurenceyohana Lopezida Active ROPINIROLE HCL 1 MG ORAL TABLET 1 tab po q hs ROPINIROLE HCL 78802409118 No Longer Active Laurenceyohana Dominguez Active ROPINIROLE HCL 0.5 MG ORAL TABLET 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 ROPINIROLE HCL 13023314209 No Longer Active MARCUS Panchal Active ROPINIROLE HCL 0.25 MG ORAL TABLET 1 TAB PO Q HS 05/31 ROPINIROLE HCL 06687085804 No Longer Active Tesfaye Sherman MD Ac tive PREDNISONE 20 MG ORAL TABLET 1 tab twice daily for 3 d ay, then one daily for three days PREDNISONE 64546703554 No Longer Active Tesfaye Sherman MD Active AMITRIPTYLINE HCL 50 MG ORAL TABLET 1 po q hs for sleep AMITRIPTYLINE HCL 02985321706 No Longer Active Tesfaye Sherman MD Active AMITRIPTYLINE HCL 10 MG ORAL TABLET 1 tablet nightly by mout h for neuropathy AMITRIPTYLINE HCL 14505803452 No Longer Active MARCUS Stapleton Active DIFLUCAN 100 MG ORAL TABLET 1 tablet by mouth daily 21/03/11 FLUCONAZOLE 57828040726 No Longer Active Tesfaye Sherman MD Acti ve BACTRIM DS 800-160 MG ORAL TABLET 1 tab by mouth twice daily 201 07/08/06 TRIMETHOPRIM-SULFAMETHOXAZOLE 88680539937 No Longer Active Umer Sherman MD Active CLARITIN 10 MG ORAL TABLET Take one by mouth daily LORATADINE 18224028015 Active Tesfaye Sherman MD Active SUDAFED 12 HOUR 120 MG ORAL TABLET EXTENDED RELEASE 12 HOUR 1 pill twice daily if needed for congestion PSEUDOEPHEDRINE HCL 231502415 13 No Longer Active Tesfaye Sherman MD Active GABAPENTIN 300 MG ORAL CAPSULE 1 po daily GABAP ENTIN 75818432570 No Longer Active Tesfaye Sherman MD Active HYDROCHLOROTHIAZIDE 12.5 MG ORAL CAPSULE 1 pill by mough daily 2 HYDROCHLOROTHIAZIDE 28120609211 No Longer Active León Mariee APRN Active VENLAFAXINE HCL 75 MG ORAL TABLET 1 am 1/2 at noon 201 07/07/09 VENLAFAXINE HCL 74380962022 No Longer Active León Mariee APRN Act trent DIFLUCAN 100 MG ORAL TABLET 1 tablet by mouth daily 19/02/09 FLUCONAZOLE 30460645808 No Longer Active 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 Active DIFLUCAN 100 MG ORAL TABLET 1 tablet by mouth daily 19/02/09 FLUCONAZOLE 95371188443 No Longer Active Leónkash Mariee APRN Active OXYCODONE-ACETAMINOPHEN 5-325 MG ORAL TABLET Take one tablet by mouth every 6 hours 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 Use sparingly OXYCODONE-ACETAMINOPHEN 62180737013 Active Tesfaye villar MD Active CLONAZEPAM 0.5 MG ORAL TABLET Take 1/2 qam, and 1/2 qpm CLONAZEPAM 53130802797 Active Tesfaye Sherman MD Active PRELIEF 340 (65-50) MG (CA-P) ORAL TABLET CALCIUM GLYCEROPHOSPHATE 52833497141 No Longer Active Tesfaye Sherman MD Active SUDAFED 24 HOUR 240 MG ORAL TABLET EXTENDED RELEASE 24 HOUR 1 tab po daily PSEUDOEPHEDRINE HCL 17211512322 No Longer Active Raul Sherman MD Active RED YEAST RICE 600 MG ORAL CAPSULE 1 pill by mouth daily RED YEAST RICE EXTRACT 76001246316 No Longer Active Tesfaye Sherman MD Active REPHRESH PRO-B ORAL CAPSULE 1 tablet daily LACT OBACILLUS 82236137479 No Longer Active Tesfaye Sherman MD Active ABILIFY 2 MG ORAL TABLET 1 by mouth daily. MARIA ELENA PIPRAZOLE 65229421694 Active Tesfaye Sherman MD Active CYMBALTA 60 MG ORAL CAPSULE DELAYED RELEASE PARTICLES 1 cap by mouth daily for pain DULOXETINE HCL 72611485978 Active MARCUS Lindsay Active DIFLUCAN 100 MG ORAL TABLET 1 tablet by mouth daily 20 20/06/06 FLUCONAZOLE 62671687377 No Longer Active Tesfaye Sherman MD Acti ve PREDNISONE 20 MG ORAL TABLET 1 tablet by mouth twice d aily for 3 days, then 1 tablet daily for 3 days PREDNISONE 09927948557 No L onger Active Tesfaye Sherman MD Active BACTRIM DS 800-160 MG ORAL TABLET 1 tab by mouth twice daily 201 06/09/02 TRIMETHOPRIM-SULFAMETHOXAZOLE 42219041575 No Longer Active Katarina masterskatarina Lopezduyen Active DIFLUCAN 100 MG ORAL TABLET 1 tablet by mouth daily 20 20/05/01 FLUCONAZOLE 98210014911 No Longer Active Tesfaye Sherman MD Acti ve ZITHROMAX 250 MG ORAL TABLET 2 po today, then 1 po q days 2-5 20 20/04/28 AZITHROMYCIN 76922399980 No Longer Active Tesfaye Sherman MD Active MECLIZINE HCL 25 MG ORAL TABLET one tab po qday prn dizziness 20 17/09/06 MECLIZINE HCL 36100128005 No Longer Active Tesfaye Sherman MD Active PROAIR HFA 108 (90 BASE) MCG/ACT INHALATION AEROSOL SO LUTION 1 puff every 6 hours as needed ALBUTEROL SULFATE 22450461647 No Long er Active Tesfaye Sherman MD Active PREDNISONE 20 MG ORAL TABLET 1 tab twice daily for 3 d ay, then one daily for three days PREDNISONE 63940219772 No Longer Active Tesfaye Sherman MD Active MECLIZINE HCL 25 MG ORAL TABLET one 4 times a day as needed for dizziness MECLIZINE HCL 97414669902 Active Tesfaye Sherman MD Active AMOXICILLIN 500 MG ORAL CAPSULE 1 cap by mouth three times a day AMOXICILLIN 05432887753 No Longer Active Laurence Dominguez Acti ve DIFLUCAN 100 MG ORAL TABLET 1 tablet by mouth daily 20 19/08/26 FLUCONAZOLE 59110195455 No Longer Active Tesfaye Sherman MD Acti ve BACTRIM DS 800-160 MG ORAL TABLET 1 tab by mouth twice daily 201 05/10/28 TRIMETHOPRIM-SULFAMETHOXAZOLE 33404070621 No Longer Active Katarina Dominguez Active FOSAMAX 70 MG ORAL TABLET 1 po qweek. Take 30min prio r to first food/drink. Avoid lying down x 1 hour. ALENDRONATE SODIUM 23144417 144 No Longer Active Laurence Dominguez Active CYMBALTA 60 MG ORAL CAPSULE DELAYED RELEASE PARTICLES Take 1 tablet by mouth daily DULOXETINE HCL 96577384021 No Longer Active Edith Burch MD Active CYMBALTA 30 MG ORAL CAPSULE DELAYED RELEASE PARTICLES 1 cap by mouth daily with 60mg DULOXETINE HCL 00233028692 No Longer Active Jordan Burch MD Active DIFLUCAN 100 MG ORAL TABLET 1 tablet by mouth daily 20 19/03/05 FLUCONAZOLE 39044722818 No Longer Active Tesfaye Sherman MD Acti ve BACTRIM DS 800-160 MG ORAL TABLET 1 tab by mouth twice daily 201 05/06/28 TRIMETHOPRIM-SULFAMETHOXAZOLE 95165011993 No Longer Active Umer Sherman MD Active BACTRIM DS 800-160 MG ORAL TABLET 1 tab by mouth twice daily 201 05/04/15 TRIMETHOPRIM-SULFAMETHOXAZOLE 60849254650 No Longer Active Umer Sherman MD Active DIFLUCAN 150 MG ORAL TABLET 1 tablet by mouth daily 18/09/20 FLUCONAZOLE 20520646997 No Longer Active Tesfaye Sherman MD Acti ve BACTRIM DS 800-160 MG ORAL TABLET 1 tab by mouth twice daily 201 04/13/17 TRIMETHOPRIM-SULFAMETHOXAZOLE 28897011755 No Longer Active D patricia Sherman MD Active CEFTIN 250 MG ORAL TABLET 1 tablet twice daily x 7 days CEFUROXIME AXETIL 09371573367 No Longer Active Tesfaye Sherman MD Active DIFLUCAN 100 MG ORAL TABLET 1 tablet by mouth every other da y for 2 doses FLUCONAZOLE 62123134361 No Longer Active Tesfaye barron MD Active DIFLUCAN 100 MG ORAL TABLET 1 tablet by mouth daily X 3 DAYS 201 04/09/01 FLUCONAZOLE 61036332054 No Longer Active Rj Moss DO Ac tive MIRTAZAPINE 15 MG ORAL TABLET 1/2 tab by mouth at bedtime. 03/13 MIRTAZAPINE 92303459194 No Longer Active Tesfaye Sherman MD Active BACTRIM DS 800-160 MG ORAL TABLET 1 tab by mouth twice daily 201 04/09/01 TRIMETHOPRIM-SULFAMETHOXAZOLE 94605432308 No Longer Active D patricia Sherman MD Active PRAMIPEXOLE DIHYDROCHLORIDE 0.125 MG ORAL TABLET take 1 tablet po qhs for restless leg syndrome. PRAMIPEXOLE DIHYDROCHLORI DE 80511039393 No Longer Active Tesfaye Sherman MD Active MAGNESIUM 400 MG ORAL TABLET 1 tab po daily MAGNE SIUM 45458679544 Active Chelsea Cardenas APRN Active CETIRIZINE HCL 5 MG ORAL TABLET Take 1 tablet by mouth daily CETIRIZINE HCL 76572177652 No Longer Active Chelsea Cardenas APRN Activ e TRIMETHOPRIM 100 MG ORAL TABLET 1/2 qd TRIM ETHOPRIM 78548955606 No Longer Active Chelsea Cardenas APRN Active BACTRIM DS 800-160 MG ORAL TABLET 1 tab by mouth twice daily 201 04/04/11 TRIMETHOPRIM-SULFAMETHOXAZOLE 47427979924 No Longer Active D avid M Swayzee MD Active BACTRIM DS 800-160 MG ORAL TABLET 1 tab by mouth twice daily X 10 DAYS TRIMETHOPRIM-SULFAMETHOXAZOLE 60229379227 No Longer Active Tesfaye Sherman MD Active AMOXICILLIN 500 MG ORAL CAPSULE 1 cap by mouth three times a day AMOXICILLIN 91247519225 No Longer Active Adriana Arredondo, [facility] A ctive B-12 1000 MCG ORAL LOZENGE 1 tab po daily CYANO COBALAMIN 79511143939 Active Tesfaye Sherman MD Active VITAMIN D3 2000 UNIT ORAL TABLET 1 daily, for vitamin D deficien cy CHOLECALCIFEROL 00953146239 No Longer Active Tesfaye Sherman MD Active ZITHROMAX 250 MG ORAL TABLET 2 po today, then 1 po q days 2-5 20 15/02/10 AZITHROMYCIN 98280631939 No Longer Active Tesfaye Sherman MD Active BACTRIM DS 800-160 MG ORAL TABLET 1 tab by mouth twice daily 201 03/03/23 TRIMETHOPRIM-SULFAMETHOXAZOLE 63024608418 No Longer Active Umer Sherman MD Active DIFLUCAN 150 MG ORAL TABLET 1 qd FLUCONAZOL E 13876579230 No Longer Active Kayla Cooper MD Active FLUTICASONE PROPIONATE 50 MCG/ACT NASAL SUSPENSION 1 spray each nostril twice daily FLUTICASONE PROPIONATE 41972522019 Active Umer Sherman MD Active LOVASTATIN 20 MG ORAL TABLET Take 1 tablet by mouth daily LOVASTATIN 44201923632 No Longer Active Tesfaye Sherman MD Acti ve MELOXICAM 7.5 MG ORAL TABLET 1 tablet by mouth daily 2 MELOXICAM 69276557548 No Longer Active Tesfaye Sherman MD Acti ve GABAPENTIN 300 MG ORAL CAPSULE Take two tablets by mouth every e vening GABAPENTIN 61812479640 No Longer Active Edith Burch MD A ctive GABAPENTIN 300 MG ORAL CAPSULE Take two tablets by mouth every e vening GABAPENTIN 300 MG ORAL CAPSULE 839451 GABAPENTIN I nactive MELOXICAM 7.5 MG ORAL TABLET 1 tablet by mouth daily 2 MELOXICAM 7.5 MG ORAL TABLET 801748 MELOXICAM Inactive LOVASTATIN 20 MG ORAL TABLET Take 1 tablet by mouth daily LOVASTATIN 20 MG ORAL TABLET 133129 LOVASTATIN Inactive DIFLUCAN 150 MG ORAL TABLET 1 qd DIFLUCAN 150 MG ORAL TABLET 169378 FLUCONAZOLE Inactive VITAMIN D3 2000 UNIT ORAL TABLET 1 daily, for vitamin D deficien cy VITAMIN D3 2000 UNIT ORAL TABLET CHOLECALCIFEROL Inactive AMOXICILLIN 500 MG ORAL CAPSULE 1 cap by mouth three times a day AMOXICILLIN 500 MG ORAL CAPSULE 561130 AMOXICILLIN Inactive BACTRIM DS 800-160 MG ORAL TABLET 1 tab by mouth twice daily X 10 DAYS BACTRIM DS 800-160 MG ORAL TABLET 011496 TRIMETHOPRIM-SULFAMETHOXAZOLE Inactive TRIMETHOPRIM 100 MG ORAL TABLET 1/2 qd 7 TRIMETHOPRIM 100 MG ORAL TABLET 871287 TRIMETHOPRIM Inactive CETIRIZINE HCL 5 MG ORAL TABLET Take 1 tablet by mouth daily CETIRIZINE HCL 5 MG ORAL TABLET 1202550 CETIRIZINE HCL Inactive PRAMIPEXOLE DIHYDROCHLORIDE 0.125 MG ORAL TABLET take 1 tablet po qhs for restless leg syndrome. PRAMIPEXOLE DIHYD ROCHLORIDE 0.125 MG ORAL TABLET 530261 PRAMIPEXOLE DIHYDROCHLORIDE Inactive MIRTAZAPINE 15 MG ORAL TABLET 1/2 tab by mouth at bedtime. 03/13 MIRTAZAPINE 15 MG ORAL TABLET 130214 MIRTAZAPINE In active DIFLUCAN 100 MG ORAL TABLET 1 tablet by mouth daily X 3 DAYS 201 04/09/01 DIFLUCAN 100 MG ORAL TABLET 585473 FLUCONAZOLE Inac tive DIFLUCAN 100 MG ORAL TABLET 1 tablet by mouth every other da y for 2 doses DIFLUCAN 100 MG ORAL TABLET 002507 FLUCONAZOLE Inactive CEFTIN 250 MG ORAL TABLET 1 tablet twice daily x 7 days CEFTIN 250 MG ORAL TABLET CEFUROXIME AXETIL Inactive CYMBALTA 30 MG ORAL CAPSULE DELAYED RELEASE PARTICLES 1 cap by mouth daily with 60mg CYMBALTA 30 MG ORAL CAPSULE DELAYED RELEASE PARTICLES 513581 DULOXETINE HCL Inactive CYMBALTA 60 MG ORAL CAPSULE DELAYED RELEASE PARTICLES Take 1 tablet by mouth daily CYMBALTA 60 MG ORAL CAPSULE DELAYED RELEA SE PARTICLES 571171 DULOXETINE HCL Inactive FOSAMAX 70 MG ORAL TABLET 1 po qweek. Take 30min prio r to first food/drink. Avoid lying down x 1 hour. FOSAMAX 70 MG ORAL TA BLET 932167 ALENDRONATE SODIUM Inactive DIFLUCAN 100 MG ORAL TABLET 1 tablet by mouth daily 19/08/26 DIFLUCAN 100 MG ORAL TABLET 813421 FLUCONAZOLE Inactive PREDNISONE 20 MG ORAL TABLET 1 tab twice daily for 3 d ay, then one daily for three days PREDNISONE 20 MG ORAL TABLET 368537 PREDNIS ONE Inactive PROAIR HFA 108 (90 BASE) MCG/ACT INHALATION AEROSOL SO LUTION 1 puff every 6 hours as needed PROAIR HFA 108 (90 B ASE) MCG/ACT INHALATION AEROSOL SOLUTION ALBUTEROL SULFATE Inactive MECLIZINE HCL 25 MG ORAL TABLET one tab po qday prn dizziness 20 17/09/06 MECLIZINE HCL 25 MG ORAL TABLET 226000 MECLIZINE HCL Inactive PREDNISONE 20 MG ORAL TABLET 1 tablet by mouth twice d aily for 3 days, then 1 tablet daily for 3 days PREDNISONE 20 MG ORAL TA BLET 354709 PREDNISONE Inactive DIFLUCAN 100 MG ORAL TABLET 1 tablet by mouth daily 20 20/06/06 DIFLUCAN 100 MG ORAL TABLET 947570 FLUCONAZOLE Inactive REPHRESH PRO-B ORAL CAPSULE 1 tablet daily REPHRESH PRO-B ORAL CAPSULE LACTOBACILLUS Inactive RED YEAST RICE 600 MG ORAL CAPSULE 1 pill by mouth daily RED YEAST RICE 600 MG ORAL CAPSULE 877333 RED YEAST RICE EXTRACT In active SUDAFED [...] daily 19/02/09 DIFLUCAN 100 MG ORAL TABLET 976594 FLUCONAZOLE Inactive DIFLUCAN 100 MG ORAL TABLET 1 tablet by mouth daily 19/02/09 DIFLUCAN 100 MG ORAL TABLET 335239 FLUCONAZOLE Inactive VENLAFAXINE HCL 75 MG ORAL TABLET 1 am 1/2 at noon 201 07/07/09 VENLAFAXINE HCL 75 MG ORAL TABLET 140634 VENLAFAXINE HCL Inacti ve GABAPENTIN 300 MG ORAL CAPSULE 1 po daily GABAPENTIN 300 MG ORAL CAPSULE 236366 GABAPENTIN Inactive SUDAFED 12 HOUR 120 MG ORAL TABLET EXTENDED RELEASE 12 HOUR 1 pill twice daily if needed for congestion SUDAFED 12 HOUR 120 MG ORAL TABLET EXTENDED RELEASE 12 HOUR PSEUDOEPHEDRINE HCL Inactive AMITRIPTYLINE HCL 10 MG ORAL TABLET 1 tablet nightly by mout h for neuropathy AMITRIPTYLINE HCL 10 MG ORAL TABLET 311208 AMITRIPTYLINE HCL Inactive AMITRIPTYLINE HCL 50 MG ORAL TABLET 1 po q hs for sleep AMITRIPTYLINE HCL 50 MG ORAL TABLET 315731 AMITRIPTYLINE HCL Inac tive PREDNISONE 20 MG ORAL TABLET 1 tab twice daily for 3 d ay, then one daily for three days PREDNISONE 20 MG ORAL TABLET 924643 PREDNIS ONE Inactive ROPINIROLE HCL 0.25 MG ORAL TABLET 1 TAB PO Q HS 05/31 ROPINIROLE HCL 0.25 MG ORAL TABLET 176903 ROPINIROLE HCL Inact trent ROPINIROLE HCL 0.5 MG ORAL TABLET 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 ROPINIROLE HCL 0.5 MG ORAL TABLET 626122 ROPINIR OLE HCL Inactive ROPINIROLE HCL 1 MG ORAL TABLET 1 tab po q hs ROPINIROLE HCL 1 MG ORAL TABLET 464049 ROPINIROLE HCL Inactive ROPINIROLE HCL 2 MG ORAL TABLET 1 po at hs 7 ROPINIROLE HCL 2 MG ORAL TABLET 632252 ROPINIROLE HCL Inactive MIRAPEX 0.125 MG ORAL TABLET 1 po nightly MIRAPEX 0.125 MG ORAL TABLET 373863 PRAMIPEXOLE DIHYDROCHLORIDE Inactive MIRAPEX 0.25 MG ORAL TABLET 1 tablet by mouth at night for r estless leg MIRAPEX 0.25 MG ORAL TABLET PRAMIPEXOLE D IHYDROCHLORIDE Inactive HYDROXYZINE HCL 25 MG ORAL TABLET 1 tab po at HS prn sleep 08/02 HYDROXYZINE HCL 25 MG ORAL TABLET 821821 HYDROXYZINE HC L Inactive DIFLUCAN 100 MG ORAL TABLET 1 tablet by mouth daily 21/08/28 DIFLUCAN 100 MG ORAL TABLET 165754 FLUCONAZOLE Inactive BACLOFEN 10 MG ORAL TABLET Take one tablet by mouth three times a day BACLOFEN 10 MG ORAL TABLET 819310 BACLOFEN Inact trent PREDNISONE 20 MG ORAL TABLET 1 tab twice daily for 3 d ay, then one daily for three days PREDNISONE 20 MG ORAL TABLET 930394 PREDNIS ONE Inactive UNISOM SLEEPMELTS 25 MG [...] 03/03/23 BACTRIM DS 800-160 MG ORAL TABLET 558145 TRIMETHOPRIM-SULFAMETHOXAZOLE Inactive ZITHROMAX 250 MG ORAL TABLET 2 po today, then 1 po q days 2-5 20 15/02/10 ZITHROMAX 250 MG ORAL TABLET 053206 AZITHROMYCIN [place] ctive BACTRIM DS 800-160 MG ORAL TABLET [...] 20 19/03/05 DIFLUCAN 100 MG ORAL TABLET 146614 FLUCONAZOLE Inactive BACTRIM DS 800-160 MG ORAL TABLET 1 tab by mouth twice daily 201 05/10/28 BACTRIM DS 800-160 MG ORAL TABLET 19830105 TRIMETHOPRIM-SULFAMETHOXAZOLE Inactive AMOXICILLIN 500 MG ORAL CAPSULE 1 cap by mouth three times a day AMOXICILLIN 500 MG ORAL CAPSULE 027095 AMOXICILLIN Inactive ZITHROMAX 250 MG ORAL TABLET 2 po today, then 1 po q days 2-5 20 20/04/28 ZITHROMAX 250 MG ORAL TABLET 406334 AZITHROMYCIN [place] ctive DIFLUCAN 100 MG ORAL [...] 20 21/08/28 ZITHROMAX 250 MG ORAL TABLET 596203 AZITHROMYCIN [place] ctive FLUCONAZOLE 100 MG ORAL TABLET 1 [...] LIVING WILL ON FILE DURABLE POWER OF HAM [facility] FOR [facility] Vital Signs Date Name Value [...] lyon blood pressure, diastolic 78 mm[Hg] BP ylon blood pressure, systolic, repeated by physician 118 [...] Panel, Comp. Metabolic Panel, Magnesium - Chemistry carbon dioxide, venous blood 28.6 mmol/L 21.0-32 [...] 8.5-10.1 bilirubin, serum, total 0.70 mg/dL 0.00-1.00 sodium, serum 140 mmol/L 705-317 9471/07/30 LDL cholesterol, serum 138 mg/dL 0-130 HDL cholesterol, serum 41 mg/dL 32-60 triglyceride, serum, fasting 86 mg/dL 30-200 cholesterol, serum 196 mg/dL 130-200 Lab Report: Lipid Panel, Comp. Metabolic Panel, [...] 5.0-8.5 Encounters Code Encounter Date Provider Facility CPT-19175 [id number] Vst-Est Level IV 08:56:46 C BRIDGET Sherman MD [facility] CPT-19503 [id number] Vst-Est Level IV 10:36:10 C BRIDGET Sherman MD [facility] CPT-37020 [id number] Vst-Est Level IV 13:49:08 HYDROGEOLOGY PROFESSOR Mendy Stovallord [facility] CPT-83466 [id number] Vst-Est Level IV 11:39:[address] Tesfaye Sherman MD [facility] CPT-20973 [id number] Vst-Est Level IV 14:08:03 C BRIDGET Sherman MD [facility] CPT-08192 Level 3 Est. Patient 18:06:36 CDT Tesfaye pearson MD [facility] CPT-44010 66978-Vpa Vst-Est Level IV 17:09:34 C BRIDGET Sherman MD [facility] CPT-57024 Level 3 Est. Patient 17:27:08 CDT León Bandar hernandez APRN [facility] CPT-97358 [id number] Vst-Est Level IV 14:00:[address] Tesfaye Sherman MD [facility] CPT-62661 44514-Kpa Vst-Est Level IV 19:27:[address] Tesfaye Sherman MD [facility] CPT-71655 [id number] Vst-Est Level IV 10:41:41 C BRIDGET Sherman MD [facility] CPT-13881 [id number] Vst-Est Level III 09:40:56 CDT Tesfaye Sherman MD [facility] CPT-57683 Level 4 Est. Patient 22:18:12 CDT Tesfaye pearson MD [facility] CPT-35035 Level 4 Est. Patient 14:44:33 HYDROGEOLOGY PROFESSOR Tesfaye pearson MD [facility] CPT-65908 Level 4 Est. Patient 13:55:29 HYDROGEOLOGY PROFESSOR Tesfaye pearson MD [facility] CPT-61075 Level 4 Est. Patient 17:07:34 HYDROGEOLOGY PROFESSOR Tesfaye pearson MD [facility] CPT-67109 Level 4 Est. Patient 13:56:54 CDT Tesfaye pearson MD [facility] CPT-04473 Level 4 Est. Patient 13:24:25 CDT Chelsea sanz APRN [facility] CPT-13427 Level 4 Est. Patient 09:14:56 CDT Tesfaye pearson MD [facility]-21939 Level 4 Est. Patient 18:40:25 HYDROGEOLOGY PROFESSOR Tesfaye pearson MD [facility]-26282 Level 4 Est. Patient 18:13:07 HYDROGEOLOGY PROFESSOR Tesfaye pearson MD [facility]-73899 Level 3 Est. Patient 10:46:32 CDT Rj cotto DO [facility]-07194 Level 4 Est. Patient 20:19:25 CDT Tesfaye pearson MD [facility]-56054 Level 3 Est. Patient 09:07:31 CDT Tesfaye pearson MD [facility] CPT-89504 Level 4 Est. Patient 13:12:56 CDT Tesfaye pearson MD [facility]-75578 Level 4 Est. Patient 21:24:55 HYDROGEOLOGY PROFESSOR Tesfaye pearson MD [facility] CPT-40713 Level 3 Est. Patient 13:45:04 HYDROGEOLOGY PROFESSOR Tesfaye pearson MD [facility] CPT-43628 Level 4 Est. Patient 13:50:45 CDT Tesfaye pearson MD [facility] CPT-96783 Level 3 Est. Patient 10:16:10 CDT Tesfaye pearson MD [facility] CPT-52944 Level 3 Est. Patient 16:36:07 HYDROGEOLOGY PROFESSOR Kayla jameson MD [facility]-29837 Level 4 Est. Patient 16:00:14 HYDROGEOLOGY PROFESSOR Tesfaye pearson MD [facility]-11281 Level 4 Est. Patient 11:02:24 HYDROGEOLOGY PROFESSOR Tesfaye pearson MD [facility] CPT-13603 Level 3 Est. Patient 20:21:43 HYDROGEOLOGY PROFESSOR Kayla jameson MD [facility] CPT-30981 Level 3 Est. Patient 13:27:28 HYDROGEOLOGY PROFESSOR Kayla jameson MD [facility] CPT-37977 Level 4 Est. 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 CPT-14477 Bone Density - XRAY USE ONLY 15:21:33 CDT CPT-15000 Venipuncture Draw Fee 16:12:22 CDT CPT-G0439 Subsequent Annual Wellness Exam 18:06:36 CDT CPT-G0439 Subsequent Annual Wellness Exam 22:18:11 CDT CPT-75973 Bone Density - XRAY USE ONLY 11:43:58 CDT CPT-69755 Bone Density - XRAY USE ONLY 10:05:16 CDT CPT-69340 Prv Med New Pt 40-64 yrs 18:19:25 CDT 2016 CPT-64209 Foot, right, comp min 3V - XRAY USE ONLY 10:38:34 CDT CPT-G0439 Subsequent Annual Wellness Exam 13:55:04 CDT CPT-G0438 Initial Annual Wellness Exam 11:23:17 CD T CPT-J2930 Solu Medrol 125 mg (Methyl Prednisolone Sodium Succinate) 17:29:12 HYDROGEOLOGY PROFESSOR CPT-98449 Abx/Therapy Injection 17:29:11 HYDROGEOLOGY PROFESSOR CPT-J2930 Solu Medrol 125 mg (Methyl Prednisolone Sodium Succinate) 12:34:38 HYDROGEOLOGY PROFESSOR CPT-J3420 Vitamin B12 1000mcg (Cyanocobalamin) 09:12:55 CDT CPT-J3420 Vitamin B12 1000mcg (Cyanocobalamin) 16:28:06 HYDROGEOLOGY PROFESSOR CPT-49661 Venipuncture Draw Fee 08:39:53 CDT CPT-J3420 Vitamin B12 1000mcg (Cyanocobalamin) 08:46:22 CDT CPT-32205 Abx/Therapy Injection 08:46:22 CDT CPT-J3420 Vitamin B12 1000mcg (Cyanocobalamin) 08:41:26 CDT CPT-68597 Abx/Therapy Injection 08:41:26 CDT CPT-J3420 Vitamin B12 1000mcg (Cyanocobalamin) 08:57:15 CDT CPT-60531 Abx/Therapy Injection 08:57:15 CDT CPT-J3420 Vitamin B12 1000mcg (Cyanocobalamin) 10:59:03 CDT CPT-58786 Abx/Therapy Injection 10:59:03 CDT CPT-J3420 Vitamin B12 1000mcg (Cyanocobalamin) 15:05:39 CDT CPT-35298 Abx/Therapy Injection 15:05:39 CDT CPT-J3420 Vitamin B12 1000mcg (Cyanocobalamin) 13:50:45 CDT CPT-J3420 Vitamin B12 1000mcg (Cyanocobalamin) 08:48:55 CDT CPT-57445 Abx/Therapy Injection 08:48:55 CDT CPT-J3420 Vitamin B12 1000mcg (Cyanocobalamin) 09:14:54 CDT CPT-47195 Abx/Therapy Injection 09:14:54 CDT CPT-J3420 Vitamin B12 1000mcg (Cyanocobalamin) 09:06:06 CDT CPT-58876 Abx/Therapy Injection 09:06:06 CDT CPT-J3420 Vitamin B12 1000mcg (Cyanocobalamin) 09:49:14 CDT CPT-36185 Abx/Therapy Injection 09:49:14 CDT CPT-J3420 Vitamin B12 1000mcg (Cyanocobalamin) 09:10:30 HYDROGEOLOGY PROFESSOR CPT-11049 Abx/Therapy Injection 09:10:30 HYDROGEOLOGY PROFESSOR CPT-J3420 Vitamin B12 1000mcg (Cyanocobalamin) 09:11:07 HYDROGEOLOGY PROFESSOR CPT-47319 Abx/Therapy Injection 09:11:07 HYDROGEOLOGY PROFESSOR CPT-J3420 Vitamin B12 1000mcg (Cyanocobalamin) 09:57:03 HYDROGEOLOGY PROFESSOR CPT-27526 Abx/Therapy Injection 09:57:03 HYDROGEOLOGY PROFESSOR CPT-J3420 Vitamin B12 1000mcg (Cyanocobalamin) 09:23:21 HYDROGEOLOGY PROFESSOR CPT-00422 Abx/Therapy Injection 09:23:21 HYDROGEOLOGY PROFESSOR CPT-56135 Urine Dip (Floor Use Only) 20:21:44 HYDROGEOLOGY PROFESSOR 201 02/12/11 CPT-16423 UA Dip Auto (Floor Use Only) 10:04:39 HYDROGEOLOGY PROFESSOR 2 CPT-92246 Urine Dip (Floor Use Only) 13:27:28 HYDROGEOLOGY PROFESSOR 201 02/12/01 CPT-93722 Bladder Scan 13:27:28 HYDROGEOLOGY PROFESSOR CPT-61432 Abd single AP View 14:30:51 HYDROGEOLOGY PROFESSOR CPT-OV Office Visit 10:15:43 CDT CPT-74744 Urine Dip (Floor Use Only) 17:22:21 CDT 201 02/09/02 CPT-74109 Bladder Scan 17:22:21 CDT
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
--- OUTSIDE RECORDS SUMMARY | 2020-05-05 11:55 | XMS REPORT | Clinical Summary ---
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 Tesfaye Sherman MD Long-term (current) drug use Yeast infection 112.9 Inactive Tesfaye Sherman MD Candidiasis of unspecified site Upper respiratory infection 465.9 Inactive Tesfaye Sherman MD Acute upper respiratory infections of un specified site Lower extremity edema, bilateral 782.3 Active 201 07/07/09 León Kodi MEDICAL OFFICE RECEPTIONIST Edema Peripheral neuropathy 356.9 Active Tesfaye lamb [...] Mass Index 20.0-20.9 Adult Eldon Shah [facility] Dysuria ICD-788.1 Inactive Tesfaye Sherman MD 201 07/05/07 Yeast infection ICD-112.9 Inactive Tesfaye lamb MD Upper respiratory infection ICD-465.9 Inactive Tesfaye Sherman MD Overweight (BMI 25-29.9) Inactive Adriana Arredondo [facility] Medication List Medication Instructions Start Date Stop Date Generic Name NDC Status Provider Patient Instruction FUROSEMIDE 20 MG ORAL TABLET take 1/2 to 1 tablet by mouth d aily prn swelling FUROSEMIDE [id number] Active Tesfaye Sherman MD Active FENOFIBRATE 145 MG ORAL TABLET Take 1 tablet by mouth once daily 20 23/12/19 FENOFIBRATE 48510636520 Active Tesfaye Sherman MD Active PRAMIPEXOLE DIHYDROCHLORIDE 0.75 MG ORAL TABLET take 1 tab po qhs for restless leg syndrome. PRAMIPEXOLE DIHYDROCHLORIDE 27892663924 Acti ve Tesfaye Sherman MD Active DIFLUCAN 100 MG ORAL TABLET 1 tablet by mouth daily 20 23/12/05 FLUCONAZOLE 06776775580 No Longer Active Tesfaye Sherman MD Acti ve [facility] NIACIN FLUSH FREE 400-100 MG ORAL CAPSULE 1 daily NIACIN-INOSITOL 60283845844 No Longer Active Tesfaye Sherman MD A ctive FISH OIL 1000 MG ORAL CAPSULE DELAYED RELEASE 1 pill b y mouth daily for cholesterol OMEGA-3 FATTY ACIDS 61444553595 No Longe r Active Tesfaye Sherman MD Active UNISOM SLEEPMELTS 25 MG ORAL TABLET DISINTEGRATING 1.5 po q hs DIPHENHYDRAMINE HCL (SLEEP) 72234548148 No Longer Active Venkata Sherman MD Active PREDNISONE 20 MG ORAL TABLET 1 tab twice daily for 3 d ay, then one daily for three days PREDNISONE 77380741104 No Longer Active Tesfaye Sherman MD Active BACLOFEN 10 MG ORAL TABLET Take one tablet by mouth three times a day BACLOFEN 44328737846 No Longer Active Tesfaye Sherman MD Active LIDOCAINE 4 % EXTERNAL CREAM Apply to back prn pain LIDOCAINE 36244751141 Active Tesfaye Sherman MD Active TIZANIDINE HCL 2 MG ORAL TABLET 2 Mg in the AM and 6mg q hs 07/05 TIZANIDINE HCL 69305741284 Active Tesfaye Sherman MD Active HYDROXYZINE HCL 25 MG TABS TAKE 1 TABLET BY MOUTH AT B EDTIME NEEDED FOR SLEEP HYDROXYZINE HCL 45211767943 Active JOSHUA Lindsay Active FLUCONAZOLE 100 MG ORAL TABLET 1 by mouth daily for yeast infect ion FLUCONAZOLE 49667929591 No Longer Active Laurence Dominguez Acti ve ZITHROMAX 250 MG ORAL TABLET 2 po today, then 1 po q days 2-5 20 21/08/28 AZITHROMYCIN 59928773271 No Longer Active Tesfaye Sherman MD Active DIFLUCAN 100 MG ORAL TABLET 1 tablet by mouth daily 20 21/08/28 FLUCONAZOLE 72274977208 No Longer Active Tesfaye Sherman MD Acti ve HYDROXYZINE HCL 25 MG ORAL TABLET 1 tab po at HS prn sleep 08/02 HYDROXYZINE HCL 02549796119 No Longer Active Tesfaye Sherman MD Active MIRAPEX 0.5 MG ORAL TABLET 1 tablet at night for restless leg. 2018 PRAMIPEXOLE DIHYDROCHLORIDE 47080337302 Active Laurenceyohana Lopezida Active MIRAPEX 0.25 MG ORAL TABLET 1 tablet by mouth at night for r estless leg PRAMIPEXOLE DIHYDROCHLORIDE 66857714209 No Longer Act trent Laurence Dominguez Active MIRAPEX 0.125 MG ORAL TABLET 1 po nightly PRAMIPEXOLE DIHYDROCHLORIDE 59830000303 No Longer Active Laurence Dominguez Active ROPINIROLE HCL 2 MG ORAL TABLET 1 po at hs ROPI NIROLE HCL 54114273435 No Longer Active Laurenceoyhana Lopezida Active ROPINIROLE HCL 1 MG ORAL TABLET 1 tab po q hs ROPINIROLE HCL 71675600861 No Longer Active Laurenceyohana Dominguez Active ROPINIROLE HCL 0.5 MG ORAL TABLET 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 ROPINIROLE HCL 24292697174 No Longer Active MARCUS Panchal Active ROPINIROLE HCL 0.25 MG ORAL TABLET 1 TAB PO Q HS 05/31 ROPINIROLE HCL 96503926520 No Longer Active Tesfaye Sherman MD Ac tive PREDNISONE 20 MG ORAL TABLET 1 tab twice daily for 3 d ay, then one daily for three days PREDNISONE 34458232326 No Longer Active Tesfaye Sherman MD Active AMITRIPTYLINE HCL 50 MG ORAL TABLET 1 po q hs for sleep AMITRIPTYLINE HCL 40391322670 No Longer Active Tesfaye Sherman MD Active AMITRIPTYLINE HCL 10 MG ORAL TABLET 1 tablet nightly by mout h for neuropathy AMITRIPTYLINE HCL 29869742955 No Longer Active MARCUS Stapleton Active DIFLUCAN 100 MG ORAL TABLET 1 tablet by mouth daily 21/03/11 FLUCONAZOLE 08271872292 No Longer Active Tesfaye Sherman MD Acti ve BACTRIM DS 800-160 MG ORAL TABLET 1 tab by mouth twice daily 201 07/08/06 TRIMETHOPRIM-SULFAMETHOXAZOLE 22718342570 No Longer Active Umer Sherman MD Active CLARITIN 10 MG ORAL TABLET Take one by mouth daily LORATADINE 16915656170 Active Tesfaye Sherman MD Active SUDAFED 12 HOUR 120 MG ORAL TABLET EXTENDED RELEASE 12 HOUR 1 pill twice daily if needed for congestion PSEUDOEPHEDRINE HCL 867097167 13 No Longer Active Tesfaye Sherman MD Active GABAPENTIN 300 MG ORAL CAPSULE 1 po daily GABAP ENTIN 17491486701 No Longer Active Tesfaye Sherman MD Active HYDROCHLOROTHIAZIDE 12.5 MG ORAL CAPSULE 1 pill by mough daily 2 HYDROCHLOROTHIAZIDE 99100339087 No Longer Active León Mariee APRN Active VENLAFAXINE HCL 75 MG ORAL TABLET 1 am 1/2 at noon 201 07/07/09 VENLAFAXINE HCL 00569988806 No Longer Active León Mariee APRN Act trent DIFLUCAN 100 MG ORAL TABLET 1 tablet by mouth daily 19/02/09 FLUCONAZOLE 62164996437 No Longer Active León Kodi MEDICAL OFFICE RECEPTIONIST Active DIFLUCAN 100 MG ORAL TABLET 1 tablet by mouth daily 19/02/09 FLUCONAZOLE 73482200967 No Longer Active Leónkash Mariee APRN Active OXYCODONE-ACETAMINOPHEN 5-325 MG ORAL TABLET Take one tablet by mouth every 6 hours 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 Use sparingly OXYCODONE-ACETAMINOPHEN 69525258421 Active Tesfaye villar MD Active CLONAZEPAM 0.5 MG ORAL TABLET Take 1/2 qam, and 1/2 qpm CLONAZEPAM 38467048309 Active Tesfaye Sherman MD Active PRELIEF 340 (65-50) MG (CA-P) ORAL TABLET CALCIUM GLYCEROPHOSPHATE 98438116969 No Longer Active Tesfaye Sherman MD Active SUDAFED 24 HOUR 240 MG ORAL TABLET EXTENDED RELEASE 24 HOUR 1 tab po daily PSEUDOEPHEDRINE HCL 75033203637 No Longer Active Raul Sherman MD Active RED YEAST RICE 600 MG ORAL CAPSULE 1 pill by mouth daily RED YEAST RICE EXTRACT 04655248272 No Longer Active Tesfaye Sherman MD Active REPHRESH PRO-B ORAL CAPSULE 1 tablet daily LACT OBACILLUS 34324191041 No Longer Active Tesfaye Sherman MD Active ABILIFY 2 MG ORAL TABLET 1 by mouth daily. MARIA ELENA PIPRAZOLE 70536945634 Active Tesfaye Sherman MD Active CYMBALTA 60 MG ORAL CAPSULE DELAYED RELEASE PARTICLES 1 cap by mouth daily for pain DULOXETINE HCL 72949331344 Active MARCUS Lindsay Active DIFLUCAN 100 MG ORAL TABLET 1 tablet by mouth daily 20 20/06/06 FLUCONAZOLE 04229596147 No Longer Active Tesfaye Sherman MD Acti ve PREDNISONE 20 MG ORAL TABLET 1 tablet by mouth twice d aily for 3 days, then 1 tablet daily for 3 days PREDNISONE 91141340280 No L onger Active Tesfaye Sherman MD Active BACTRIM DS 800-160 MG ORAL TABLET 1 tab by mouth twice daily 201 06/09/02 TRIMETHOPRIM-SULFAMETHOXAZOLE 35458401303 No Longer Active Katarina masterskatarina Lopezduyen Active DIFLUCAN 100 MG ORAL TABLET 1 tablet by mouth daily 20 20/05/01 FLUCONAZOLE 75105428574 No Longer Active Tesfaye Sherman MD Acti ve ZITHROMAX 250 MG ORAL TABLET 2 po today, then 1 po q days 2-5 20 20/04/28 AZITHROMYCIN 66250676512 No Longer Active Tesfaye Sherman MD Active MECLIZINE HCL 25 MG ORAL TABLET one tab po qday prn dizziness 20 17/09/06 MECLIZINE HCL 43867971943 No Longer Active Tesfaye Sherman MD Active PROAIR HFA 108 (90 BASE) MCG/ACT INHALATION AEROSOL SO LUTION 1 puff every 6 hours as needed ALBUTEROL SULFATE 54585594188 No Long er Active Tesfaye Sherman MD Active PREDNISONE 20 MG ORAL TABLET 1 tab twice daily for 3 d ay, then one daily for three days PREDNISONE 14375764270 No Longer Active Tesfaye Sherman MD Active MECLIZINE HCL 25 MG ORAL TABLET one 4 times a day as needed for dizziness MECLIZINE HCL 77420459316 Active Tesfaye Sherman MD Active AMOXICILLIN 500 MG ORAL CAPSULE 1 cap by mouth three times a day AMOXICILLIN 05756605899 No Longer Active Laurence Dominguez Acti ve DIFLUCAN 100 MG ORAL TABLET 1 tablet by mouth daily 20 19/08/26 FLUCONAZOLE 73484674002 No Longer Active Tesfaye Sherman MD Acti ve BACTRIM DS 800-160 MG ORAL TABLET 1 tab by mouth twice daily 201 05/10/28 TRIMETHOPRIM-SULFAMETHOXAZOLE 73491721420 No Longer Active Katarina Dominguez Active FOSAMAX 70 MG ORAL TABLET 1 po qweek. Take 30min prio r to first food/drink. Avoid lying down x 1 hour. ALENDRONATE SODIUM 55348115 144 No Longer Active Laurence Dominguez Active CYMBALTA 60 MG ORAL CAPSULE DELAYED RELEASE PARTICLES Take 1 tablet by mouth daily DULOXETINE HCL 53876235932 No Longer Active Edith Burch MD Active CYMBALTA 30 MG ORAL CAPSULE DELAYED RELEASE PARTICLES 1 cap by mouth daily with 60mg DULOXETINE HCL 74534237166 No Longer Active Jordan Burch MD Active DIFLUCAN 100 MG ORAL TABLET 1 tablet by mouth daily 20 19/03/05 FLUCONAZOLE 38802231254 No Longer Active Tesfaye Sherman MD Acti ve BACTRIM DS 800-160 MG ORAL TABLET 1 tab by mouth twice daily 201 05/06/28 TRIMETHOPRIM-SULFAMETHOXAZOLE 77338198812 No Longer Active Umer Sherman MD Active BACTRIM DS 800-160 MG ORAL TABLET 1 tab by mouth twice daily 201 05/04/15 TRIMETHOPRIM-SULFAMETHOXAZOLE 02815645539 No Longer Active Umer Sherman MD Active DIFLUCAN 150 MG ORAL TABLET 1 tablet by mouth daily 18/09/20 FLUCONAZOLE 60142586124 No Longer Active Tesfaye Sherman MD Acti ve BACTRIM DS 800-160 MG ORAL TABLET 1 tab by mouth twice daily 201 04/13/17 TRIMETHOPRIM-SULFAMETHOXAZOLE 82608844105 No Longer Active D patricia Sherman MD Active CEFTIN 250 MG ORAL TABLET 1 tablet twice daily x 7 days CEFUROXIME AXETIL 59446135841 No Longer Active Tesfaye Sherman MD Active DIFLUCAN 100 MG ORAL TABLET 1 tablet by mouth every other da y for 2 doses FLUCONAZOLE 07404254968 No Longer Active Tesfaye barron MD Active DIFLUCAN 100 MG ORAL TABLET 1 tablet by mouth daily X 3 DAYS 201 04/09/01 FLUCONAZOLE 75344503617 No Longer Active Rj Moss DO Ac tive MIRTAZAPINE 15 MG ORAL TABLET 1/2 tab by mouth at bedtime. 03/13 MIRTAZAPINE 23411932688 No Longer Active Tesfaye Sherman MD Active BACTRIM DS 800-160 MG ORAL TABLET 1 tab by mouth twice daily 201 04/09/01 TRIMETHOPRIM-SULFAMETHOXAZOLE 18328962695 No Longer Active D patricia Sherman MD Active PRAMIPEXOLE DIHYDROCHLORIDE 0.125 MG ORAL TABLET take 1 tablet po qhs for restless leg syndrome. PRAMIPEXOLE DIHYDROCHLORI DE 04783506386 No Longer Active Tesfaye Sherman MD Active MAGNESIUM 400 MG ORAL TABLET 1 tab po daily MAGNE SIUM 28045435671 Active Chelsea Cardenas APRN Active CETIRIZINE HCL 5 MG ORAL TABLET Take 1 tablet by mouth daily CETIRIZINE HCL 60539655533 No Longer Active Chelsea Cardenas APRN Activ e TRIMETHOPRIM 100 MG ORAL TABLET 1/2 qd TRIM ETHOPRIM 58142701433 No Longer Active Chelsea Cardenas APRN Active BACTRIM DS 800-160 MG ORAL TABLET 1 tab by mouth twice daily 201 04/04/11 TRIMETHOPRIM-SULFAMETHOXAZOLE 72125278642 No Longer Active D avid M [place] MD Active BACTRIM DS 800-160 MG ORAL TABLET 1 tab by mouth twice daily X 10 DAYS TRIMETHOPRIM-SULFAMETHOXAZOLE 95666842426 No Longer Active Tesfaye Sherman MD Active AMOXICILLIN 500 MG ORAL CAPSULE 1 cap by mouth three times a day AMOXICILLIN 00434851611 No Longer Active Adriana Arredondo, [facility] A ctive B-12 1000 MCG ORAL LOZENGE 1 tab po daily CYANO COBALAMIN 00198710382 Active Tesfaye Sherman MD Active VITAMIN D3 2000 UNIT ORAL TABLET 1 daily, for vitamin D deficien cy CHOLECALCIFEROL 16778266416 No Longer Active Tesfaye Sherman MD Active ZITHROMAX 250 MG ORAL TABLET 2 po today, then 1 po q days 2-5 20 15/02/10 AZITHROMYCIN 56763784035 No Longer Active Tesfaye Sherman MD Active BACTRIM DS 800-160 MG ORAL TABLET 1 tab by mouth twice daily 201 03/03/23 TRIMETHOPRIM-SULFAMETHOXAZOLE 73038604090 No Longer Active Umer Sherman MD Active DIFLUCAN 150 MG ORAL TABLET 1 qd FLUCONAZOL E 24058905211 No Longer Active Kayla Cooper MD Active FLUTICASONE PROPIONATE 50 MCG/ACT NASAL SUSPENSION 1 spray each nostril twice daily FLUTICASONE PROPIONATE 82540539049 Active Umer Sherman MD Active LOVASTATIN 20 MG ORAL TABLET Take 1 tablet by mouth daily LOVASTATIN 13053661068 No Longer Active Tesfaye Sherman MD Acti ve MELOXICAM 7.5 MG ORAL TABLET 1 tablet by mouth daily 2 MELOXICAM 70836122393 No Longer Active Tesfaye Sherman MD Acti ve GABAPENTIN 300 MG ORAL CAPSULE Take two tablets by mouth every e vening GABAPENTIN 01092511925 No Longer Active Edith Burch MD A ctive GABAPENTIN 300 MG ORAL CAPSULE Take two tablets by mouth every e vening GABAPENTIN 300 MG ORAL CAPSULE 355995 GABAPENTIN I nactive MELOXICAM 7.5 MG ORAL TABLET 1 tablet by mouth daily 2 MELOXICAM 7.5 MG ORAL TABLET 473082 MELOXICAM Inactive LOVASTATIN 20 MG ORAL TABLET Take 1 tablet by mouth daily LOVASTATIN 20 MG ORAL TABLET 185785 LOVASTATIN Inactive DIFLUCAN 150 MG ORAL TABLET 1 qd DIFLUCAN 150 MG ORAL TABLET 231387 FLUCONAZOLE Inactive VITAMIN D3 2000 UNIT ORAL TABLET 1 daily, for vitamin D deficien cy VITAMIN D3 2000 UNIT ORAL TABLET CHOLECALCIFEROL Inactive AMOXICILLIN 500 MG ORAL CAPSULE 1 cap by mouth three times a day AMOXICILLIN 500 MG ORAL CAPSULE 322705 AMOXICILLIN Inactive BACTRIM DS 800-160 MG ORAL TABLET 1 tab by mouth twice daily X 10 DAYS BACTRIM DS 800-160 MG ORAL TABLET 633324 TRIMETHOPRIM-SULFAMETHOXAZOLE Inactive TRIMETHOPRIM 100 MG ORAL TABLET 1/2 qd 7 TRIMETHOPRIM 100 MG ORAL TABLET 189690 TRIMETHOPRIM Inactive CETIRIZINE HCL 5 MG ORAL TABLET Take 1 tablet by mouth daily CETIRIZINE HCL 5 MG ORAL TABLET 5978314 CETIRIZINE HCL Inactive PRAMIPEXOLE DIHYDROCHLORIDE 0.125 MG ORAL TABLET take 1 tablet po qhs for restless leg syndrome. PRAMIPEXOLE DIHYD ROCHLORIDE 0.125 MG ORAL TABLET 687625 PRAMIPEXOLE DIHYDROCHLORIDE Inactive MIRTAZAPINE 15 MG ORAL TABLET 1/2 tab by mouth at bedtime. 03/13 MIRTAZAPINE 15 MG ORAL TABLET 633961 MIRTAZAPINE In active DIFLUCAN 100 MG ORAL TABLET 1 tablet by mouth daily X 3 DAYS 201 04/09/01 DIFLUCAN 100 MG ORAL TABLET 390717 FLUCONAZOLE Inac tive DIFLUCAN 100 MG ORAL TABLET 1 tablet by mouth every other da y for 2 doses DIFLUCAN 100 MG ORAL TABLET 999811 FLUCONAZOLE Inactive CEFTIN 250 MG ORAL TABLET 1 tablet twice daily x 7 days CEFTIN 250 MG ORAL TABLET CEFUROXIME AXETIL Inactive CYMBALTA 30 MG ORAL CAPSULE DELAYED RELEASE PARTICLES 1 cap by mouth daily with 60mg CYMBALTA 30 MG ORAL CAPSULE DELAYED RELEASE PARTICLES 961792 DULOXETINE HCL Inactive CYMBALTA 60 MG ORAL CAPSULE DELAYED RELEASE PARTICLES Take 1 tablet by mouth daily CYMBALTA 60 MG ORAL CAPSULE DELAYED RELEA SE PARTICLES 454499 DULOXETINE HCL Inactive FOSAMAX 70 MG ORAL TABLET 1 po qweek. Take 30min prio r to first food/drink. Avoid lying down x 1 hour. FOSAMAX 70 MG ORAL TA BLET 712489 ALENDRONATE SODIUM Inactive DIFLUCAN 100 MG ORAL TABLET 1 tablet by mouth daily 19/08/26 DIFLUCAN 100 MG ORAL TABLET 324980 FLUCONAZOLE Inactive PREDNISONE 20 MG ORAL TABLET 1 tab twice daily for 3 d ay, then one daily for three days PREDNISONE 20 MG ORAL TABLET 207224 PREDNIS ONE Inactive PROAIR HFA 108 (90 BASE) MCG/ACT INHALATION AEROSOL SO LUTION 1 puff every 6 hours as needed PROAIR HFA 108 (90 B ASE) MCG/ACT INHALATION AEROSOL SOLUTION ALBUTEROL SULFATE Inactive MECLIZINE HCL 25 MG ORAL TABLET one tab po qday prn dizziness 20 17/09/06 MECLIZINE HCL 25 MG ORAL TABLET 742936 MECLIZINE HCL Inactive PREDNISONE 20 MG ORAL TABLET 1 tablet by mouth twice d aily for 3 days, then 1 tablet daily for 3 days PREDNISONE 20 MG ORAL TA BLET 429934 PREDNISONE Inactive DIFLUCAN 100 MG ORAL TABLET 1 tablet by mouth daily 20 20/06/06 DIFLUCAN 100 MG ORAL TABLET 848434 FLUCONAZOLE Inactive REPHRESH PRO-B ORAL CAPSULE 1 tablet daily REPHRESH PRO-B ORAL CAPSULE LACTOBACILLUS Inactive RED YEAST RICE 600 MG ORAL CAPSULE 1 pill by mouth daily RED YEAST RICE 600 MG ORAL CAPSULE 471923 RED YEAST RICE EXTRACT In active SUDAFED [...] daily 19/02/09 DIFLUCAN 100 MG ORAL TABLET 448111 FLUCONAZOLE Inactive DIFLUCAN 100 MG ORAL TABLET 1 tablet by mouth daily 19/02/09 DIFLUCAN 100 MG ORAL TABLET 154100 FLUCONAZOLE Inactive VENLAFAXINE HCL 75 MG ORAL TABLET 1 am 1/2 at noon 201 07/07/09 VENLAFAXINE HCL 75 MG ORAL TABLET 748926 VENLAFAXINE HCL Inacti ve GABAPENTIN 300 MG ORAL CAPSULE 1 po daily GABAPENTIN 300 MG ORAL CAPSULE 048573 GABAPENTIN Inactive SUDAFED 12 HOUR 120 MG ORAL TABLET EXTENDED RELEASE 12 HOUR 1 pill twice daily if needed for congestion SUDAFED 12 HOUR 120 MG ORAL TABLET EXTENDED RELEASE 12 HOUR PSEUDOEPHEDRINE HCL Inactive AMITRIPTYLINE HCL 10 MG ORAL TABLET 1 tablet nightly by mout h for neuropathy AMITRIPTYLINE HCL 10 MG ORAL TABLET 231328 AMITRIPTYLINE HCL Inactive AMITRIPTYLINE HCL 50 MG ORAL TABLET 1 po q hs for sleep AMITRIPTYLINE HCL 50 MG ORAL TABLET 557210 AMITRIPTYLINE HCL Inac tive PREDNISONE 20 MG ORAL TABLET 1 tab twice daily for 3 d ay, then one daily for three days PREDNISONE 20 MG ORAL TABLET 983262 PREDNIS ONE Inactive ROPINIROLE HCL 0.25 MG ORAL TABLET 1 TAB PO Q HS 05/31 ROPINIROLE HCL 0.25 MG ORAL TABLET 467985 ROPINIROLE HCL Inact trent ROPINIROLE HCL 0.5 MG ORAL TABLET 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 ROPINIROLE HCL 0.5 MG ORAL TABLET 979361 ROPINIR OLE HCL Inactive ROPINIROLE HCL 1 MG ORAL TABLET 1 tab po q hs ROPINIROLE HCL 1 MG ORAL TABLET 531145 ROPINIROLE HCL Inactive ROPINIROLE HCL 2 MG ORAL TABLET 1 po at hs 7 ROPINIROLE HCL 2 MG ORAL TABLET 621852 ROPINIROLE HCL Inactive MIRAPEX 0.125 MG ORAL TABLET 1 po nightly MIRAPEX 0.125 MG ORAL TABLET 061542 PRAMIPEXOLE DIHYDROCHLORIDE Inactive MIRAPEX 0.25 MG ORAL TABLET 1 tablet by mouth at night for r estless leg MIRAPEX 0.25 MG ORAL TABLET PRAMIPEXOLE D IHYDROCHLORIDE Inactive HYDROXYZINE HCL 25 MG ORAL TABLET 1 tab po at HS prn sleep 08/02 HYDROXYZINE HCL 25 MG ORAL TABLET 042321 HYDROXYZINE HC L Inactive DIFLUCAN 100 MG ORAL TABLET 1 tablet by mouth daily 21/08/28 DIFLUCAN 100 MG ORAL TABLET 566015 FLUCONAZOLE Inactive BACLOFEN 10 MG ORAL TABLET Take one tablet by mouth three times a day BACLOFEN 10 MG ORAL TABLET 920517 BACLOFEN Inact trent PREDNISONE 20 MG ORAL TABLET 1 tab twice daily for 3 d ay, then one daily for three days PREDNISONE 20 MG ORAL TABLET 851049 PREDNIS ONE Inactive UNISOM SLEEPMELTS 25 MG [...] 03/03/23 BACTRIM DS 800-160 MG ORAL TABLET 190192 TRIMETHOPRIM-SULFAMETHOXAZOLE Inactive ZITHROMAX 250 MG ORAL TABLET 2 po today, then 1 po q days 2-5 20 15/02/10 ZITHROMAX 250 MG ORAL TABLET 156434 AZITHROMYCIN Itmann ctive BACTRIM DS 800-160 MG ORAL TABLET [...] 20 19/03/05 DIFLUCAN 100 MG ORAL TABLET 305233 FLUCONAZOLE Inactive BACTRIM DS 800-160 MG ORAL TABLET 1 tab by mouth twice daily 201 05/10/28 BACTRIM DS 800-160 MG ORAL TABLET 19830105 TRIMETHOPRIM-SULFAMETHOXAZOLE Inactive AMOXICILLIN 500 MG ORAL CAPSULE 1 cap by mouth three times a day AMOXICILLIN 500 MG ORAL CAPSULE 033855 AMOXICILLIN Inactive ZITHROMAX 250 MG ORAL TABLET 2 po today, then 1 po q days 2-5 20 20/04/28 ZITHROMAX 250 MG ORAL TABLET 709705 AZITHROMYCIN Mayela ctive DIFLUCAN 100 MG ORAL [...] 20 21/08/28 ZITHROMAX 250 MG ORAL TABLET 035130 AZITHROMYCIN Itmann ctive FLUCONAZOLE 100 MG ORAL TABLET 1 [...] LIVING WILL ON FILE DURABLE POWER OF PAYROLL SPECIALIST FOR HEALTHCARE Vital Signs Date Name Value [...] Magnesium - Chemistry cholesterol, serum 196 mg/dL 080-691 3508/07/30 triglyceride, serum, fasting 86 mg/dL 30-200 HDL cholesterol, serum 41 mg/dL 32-60 LDL cholesterol, serum 138 mg/dL 0-130 sodium, serum 140 mmol/L 511-437 1139/07/30 carbon dioxide, venous blood 28.6 mmol/L 21.0-32 [...] 5.0-8.5 Encounters Code Encounter Date Provider Facility CPT-97442 [id number] Vst-Est Level IV 08:56:46 C BRIDGET Sherman MD [facility] CPT-35120 [id number] Vst-Est Level IV 10:36:10 C BRIDGET Sherman MD [facility] CPT-66909 [id number] Vst-Est Level IV 13:49:08 MEDICAL SECRETARY Mendy Stovallord [facility] CPT-02405 [id number] Vst-Est Level IV 11:39:[address] Tesfaye Sherman MD [facility] CPT-17420 [id number] Vst-Est Level IV 14:08:03 C BRIDGET Sherman MD [facility] CPT-10484 Level 3 Est. Patient 18:06:36 CDT Tesfaye pearson MD [facility] CPT-51591 [id number] Vst-Est Level IV 17:09:34 C BRIDGET Sherman MD [facility] CPT-04231 Level 3 Est. Patient 17:27:08 CDT León Bandar hernandez APRN [facility] CPT-14122 [id number] Vst-Est Level IV 14:00:[address] Tesfaye Sherman MD [facility] CPT-03657 [id number] Vst-Est Level IV 19:27:[address] Tesfaye Sherman MD [facility] CPT-69561 [id number] Vst-Est Level IV 10:41:41 C BRIDGET Sherman MD [facility] CPT-20592 [id number] Vst-Est Level III 09:40:56 CDT Tesfaye Sherman MD [facility] CPT-12090 Level 4 Est. Patient 22:18:12 CDT Tesfaye pearson MD [facility] CPT-95614 Level 4 Est. Patient 14:44:33 MEDICAL SECRETARY Tesfaye pearson MD [facility] CPT-01251 Level 4 Est. Patient 13:55:29 MEDICAL SECRETARY Tesfaye pearson MD [facility] CPT-91829 Level 4 Est. Patient 17:07:34 MEDICAL SECRETARY Tesfaye pearson MD [facility] CPT-86892 Level 4 Est. Patient 13:56:54 CDT Tesfaye pearson MD [facility] CPT-24279 Level 4 Est. Patient 13:24:25 CDT Chelsea sanz APRN [facility] CPT-11366 Level 4 Est. Patient 09:14:56 CDT Tesfaye pearson MD [facility]-17816 Level 4 Est. Patient 18:40:25 MEDICAL SECRETARY Tesfaye pearson MD [facility]-77374 Level 4 Est. Patient 18:13:07 MEDICAL SECRETARY Tesfaye pearson MD [facility]-18398 Level 3 Est. Patient 10:46:32 CDT Rj cotto DO [facility]-44683 Level 4 Est. Patient 20:19:25 CDT Tesfaye pearson MD [facility]-96853 Level 3 Est. Patient 09:07:31 CDT Tesfaye pearson MD [facility] CPT-04468 Level 4 Est. Patient 13:12:56 CDT Tesfaye pearson MD [facility]-09676 Level 4 Est. Patient 21:24:55 MEDICAL SECRETARY Tesfaye pearson MD [facility] CPT-11901 Level 3 Est. Patient 13:45:04 MEDICAL SECRETARY Tesfaye pearson MD [facility] CPT-61542 Level 4 Est. Patient 13:50:45 CDT Tesfaye pearson MD [facility] CPT-31370 Level 3 Est. Patient 10:16:10 CDT Tesfaye pearson MD [facility] CPT-57267 Level 3 Est. Patient 16:36:07 MEDICAL SECRETARY Kayla jameson MD [facility]-96958 Level 4 Est. Patient 16:00:14 MEDICAL SECRETARY Tesfaye pearson MD [facility]-90520 Level 4 Est. Patient 11:02:24 MEDICAL SECRETARY Tesfaye pearson MD [facility] CPT-05935 Level 3 Est. Patient 20:21:43 MEDICAL SECRETARY Kayla jameson MD [facility] CPT-05759 Level 3 Est. Patient 13:27:28 MEDICAL SECRETARY Kayla jameson MD [facility] CPT-17603 Level 4 Est. Patient 15:57:17 MEDICAL SECRETARY Tesfaye pearson MD [facility] CPT-95136 Level 3 New Patient 13:25:47 CDT Tesfaye kidd MD [facility] CPT-29998 Level 3 New Patient 17:22:21 CDT J John angel [facility] Procedures Code Procedure Name Date Entry Date Standard Desc ription CPT-51253 Venipuncture Draw Fee 10:04:55 CDT CPT-64850 Prv Med Est Pt 40-64yrs 09:01:58 CDT 03/09 CPT-G0439 Subsequent Annual Wellness Exam 11:25:51 CDT [id number]-[id number] ([id number] 2P) Patient Reason Influenza immu nization not administered 13:25:19 MEDICAL SECRETARY CPT-45463 Bone Density - XRAY USE ONLY 15:21:33 CDT CPT-20318 Venipuncture Draw Fee 16:12:22 CDT CPT-G0439 Subsequent Annual Wellness Exam 18:06:36 CDT CPT-G0439 Subsequent Annual Wellness Exam 22:18:11 CDT CPT-96715 Bone Density - XRAY USE ONLY 11:43:58 CDT CPT-29223 Bone Density - XRAY USE ONLY 10:05:16 CDT CPT-89669 Prv Med New Pt 40-64 yrs 18:19:25 CDT 2016 CPT-67278 Foot, right, comp min 3V - XRAY USE ONLY 10:38:34 CDT CPT-G0439 Subsequent Annual Wellness Exam 13:55:04 CDT CPT-G0438 Initial Annual Wellness Exam 11:23:17 CD T CPT-J2930 Solu Medrol 125 mg (Methyl Prednisolone Sodium Succinate) 17:29:12 MEDICAL SECRETARY CPT-72744 Abx/Therapy Injection 17:29:11 MEDICAL SECRETARY CPT-J2930 Solu Medrol 125 mg (Methyl Prednisolone Sodium Succinate) 12:34:38 MEDICAL SECRETARY CPT-J3420 Vitamin B12 1000mcg (Cyanocobalamin) 09:12:55 CDT CPT-J3420 Vitamin B12 1000mcg (Cyanocobalamin) 16:28:06 MEDICAL SECRETARY CPT-49169 Venipuncture Draw Fee 08:39:53 CDT CPT-J3420 Vitamin B12 1000mcg (Cyanocobalamin) 08:46:22 CDT CPT-68287 Abx/Therapy Injection 08:46:22 CDT CPT-J3420 Vitamin B12 1000mcg (Cyanocobalamin) 08:41:26 CDT CPT-70985 Abx/Therapy Injection 08:41:26 CDT CPT-J3420 Vitamin B12 1000mcg (Cyanocobalamin) 08:57:15 CDT CPT-51212 Abx/Therapy Injection 08:57:15 CDT CPT-J3420 Vitamin B12 1000mcg (Cyanocobalamin) 10:59:03 CDT CPT-34490 Abx/Therapy Injection 10:59:03 CDT CPT-J3420 Vitamin B12 1000mcg (Cyanocobalamin) 15:05:39 CDT CPT-86750 Abx/Therapy Injection 15:05:39 CDT CPT-J3420 Vitamin B12 1000mcg (Cyanocobalamin) 13:50:45 CDT CPT-J3420 Vitamin B12 1000mcg (Cyanocobalamin) 08:48:55 CDT CPT-79859 Abx/Therapy Injection 08:48:55 CDT CPT-J3420 Vitamin B12 1000mcg (Cyanocobalamin) 09:14:54 CDT CPT-47977 Abx/Therapy Injection 09:14:54 CDT CPT-J3420 Vitamin B12 1000mcg (Cyanocobalamin) 09:06:06 CDT CPT-15514 Abx/Therapy Injection 09:06:06 CDT CPT-J3420 Vitamin B12 1000mcg (Cyanocobalamin) 09:49:14 CDT CPT-97545 Abx/Therapy Injection 09:49:14 CDT CPT-J3420 Vitamin B12 1000mcg (Cyanocobalamin) 09:10:30 MEDICAL SECRETARY CPT-47216 Abx/Therapy Injection 09:10:30 MEDICAL SECRETARY CPT-J3420 Vitamin B12 1000mcg (Cyanocobalamin) 09:11:07 MEDICAL SECRETARY CPT-51517 Abx/Therapy Injection 09:11:07 MEDICAL SECRETARY CPT-J3420 Vitamin B12 1000mcg (Cyanocobalamin) 09:57:03 MEDICAL SECRETARY CPT-60902 Abx/Therapy Injection 09:57:03 MEDICAL SECRETARY CPT-J3420 Vitamin B12 1000mcg (Cyanocobalamin) 09:23:21 MEDICAL SECRETARY CPT-72596 Abx/Therapy Injection 09:23:21 MEDICAL SECRETARY CPT-83303 Urine Dip (Floor Use Only) 20:21:44 MEDICAL SECRETARY 201 02/12/11 CPT-04656 UA Dip Auto (Floor Use Only) 10:04:39 MEDICAL SECRETARY 2 CPT-63580 Urine Dip (Floor Use Only) 13:27:28 MEDICAL SECRETARY 201 02/12/01 CPT-40782 Bladder Scan 13:27:28 MEDICAL SECRETARY CPT-57516 Abd single AP View 14:30:51 MEDICAL SECRETARY CPT-OV Office Visit 10:15:43 CDT CPT-80954 Urine Dip (Floor Use Only) 17:22:21 CDT 201 02/09/02 CPT-49829 Bladder Scan 17:22:21 CDT
--- OUTSIDE RECORDS SUMMARY | 2020-05-05 11:55 | XMS REPORT | Clinical Summary ---
Author Author Talon, Jeri Wood Organization [employer] Address Unknown Phone Unavailable Allergies, Adverse [...] bilateral 782.3 Active 201 07/07/09 León Kodi [employer] Edema Peripheral neuropathy 356.9 Active Tesfaye lamb [...] MD Foot pain, right ICD-729.5 Inactive Tesfaye barorn MD Joint pain ICD-719.40 Inactive Tesfaye Sherman MD Dysuria ICD-788.1 Inactive Tesfaye Sherman MD 201 07/05/07 Preventive health care ICD-V70.0 Inactive Wilner Sherman MD Vertigo ICD-780.4 Inactive Tesfaye Sherman MD 201 07/05/07 Body Mass Index 20.0-20.9 Adult Eldon Shah [facility] Dysuria ICD-788.1 Inactive Tesfaye Sherman MD 201 07/05/07 Yeast infection ICD-112.9 Inactive Tesfaye lamb MD Upper respiratory infection ICD-465.9 Inactive Tesfaye Sherman MD Overweight (BMI 25-29.9) Inactive Adriana Arredondo [facility] Medication List Medication Instructions Start Date Stop Date Generic Name NDC Status Provider Patient Instruction FUROSEMIDE 20 MG ORAL TABLET take 1/2 to 1 tablet by mouth d aily prn swelling FUROSEMIDE 03236312269 Active Tesfaye Sherman MD Active FENOFIBRATE 145 MG ORAL TABLET Take 1 tablet by mouth once daily 20 23/12/19 FENOFIBRATE 70920979610 Active Tesfaye Sherman MD Active PRAMIPEXOLE DIHYDROCHLORIDE 0.75 MG ORAL TABLET take 1 tab po qhs for restless leg syndrome. PRAMIPEXOLE DIHYDROCHLORIDE [id number] Acti ve Tesfaye Sherman MD Active DIFLUCAN 100 MG ORAL TABLET 1 tablet by mouth daily 20 23/12/05 FLUCONAZOLE 75443260300 No Longer Active Tesfaye Sherman MD Acti ve [facility] NIACIN FLUSH FREE 400-100 MG ORAL CAPSULE 1 daily NIACIN-INOSITOL 32964171774 No Longer Active Tesfaye Sherman MD A ctive FISH OIL 1000 MG ORAL CAPSULE DELAYED RELEASE 1 pill b y mouth daily for cholesterol OMEGA-3 FATTY ACIDS 27681641056 No Longe r Active Tesfaye Sherman MD Active UNISOM SLEEPMELTS 25 MG ORAL TABLET DISINTEGRATING 1.5 po q hs DIPHENHYDRAMINE HCL (SLEEP) 12130701155 No Longer Active Venkata Sherman MD Active PREDNISONE 20 MG ORAL TABLET 1 tab twice daily for 3 d ay, then one daily for three days PREDNISONE 88859543762 No Longer Active Tesfaye Sherman MD Active BACLOFEN 10 MG ORAL TABLET Take one tablet by mouth three times a day BACLOFEN 66755706299 No Longer Active Tesfaye Sherman MD Active LIDOCAINE 4 % EXTERNAL CREAM Apply to back prn pain LIDOCAINE 50024098255 Active Tesfaye Sherman MD Active TIZANIDINE HCL 2 MG ORAL TABLET 2 Mg in the AM and 6mg q hs 07/05 TIZANIDINE HCL 53167609398 Active Tesfaye Sherman MD Active HYDROXYZINE HCL 25 MG TABS TAKE 1 TABLET BY MOUTH AT B EDTIME NEEDED FOR SLEEP HYDROXYZINE HCL 70980143542 Active JOSHUA Lindsay Active FLUCONAZOLE 100 MG ORAL TABLET 1 by mouth daily for yeast infect ion FLUCONAZOLE 77864013046 No Longer Active Laurence Dominguez Acti ve ZITHROMAX 250 MG ORAL TABLET 2 po today, then 1 po q days 2-5 20 21/08/28 AZITHROMYCIN 28454963836 No Longer Active Tesfaye Sherman MD Active DIFLUCAN 100 MG ORAL TABLET 1 tablet by mouth daily 20 21/08/28 FLUCONAZOLE 12720185311 No Longer Active Tesfaye Sherman MD Acti ve HYDROXYZINE HCL 25 MG ORAL TABLET 1 tab po at HS prn sleep 08/02 HYDROXYZINE HCL 10160047244 No Longer Active Tesfaye Sherman MD Active MIRAPEX 0.5 MG ORAL TABLET 1 tablet at night for restless leg. 2018 PRAMIPEXOLE DIHYDROCHLORIDE 96817151089 Active Laurenceyohana Lopezida Active MIRAPEX 0.25 MG ORAL TABLET 1 tablet by mouth at night for r estless leg PRAMIPEXOLE DIHYDROCHLORIDE 12169116217 No Longer Act trent Laurence Dominguez Active MIRAPEX 0.125 MG ORAL TABLET 1 po nightly PRAMIPEXOLE DIHYDROCHLORIDE 17856877209 No Longer Active Laurence Dominguez Active ROPINIROLE HCL 2 MG ORAL TABLET 1 po at hs ROPI NIROLE HCL 41776720693 No Longer Active Laurenceyohana Lopezida Active ROPINIROLE HCL 1 MG ORAL TABLET 1 tab po q hs ROPINIROLE HCL 24570936427 No Longer Active Laurenceyohana Dominguez Active ROPINIROLE HCL 0.5 MG ORAL TABLET 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 ROPINIROLE HCL 74870515935 No Longer Active MARCUS Panchal Active ROPINIROLE HCL 0.25 MG ORAL TABLET 1 TAB PO Q HS 05/31 ROPINIROLE HCL 30052471924 No Longer Active Tesfaye Sherman MD Ac tive PREDNISONE 20 MG ORAL TABLET 1 tab twice daily for 3 d ay, then one daily for three days PREDNISONE 56787443083 No Longer Active Tesfaye Sherman MD Active AMITRIPTYLINE HCL 50 MG ORAL TABLET 1 po q hs for sleep AMITRIPTYLINE HCL 38464639550 No Longer Active Tesfaye Sherman MD Active AMITRIPTYLINE HCL 10 MG ORAL TABLET 1 tablet nightly by mout h for neuropathy AMITRIPTYLINE HCL 51524415560 No Longer Active MARCUS Stapleton Active DIFLUCAN 100 MG ORAL TABLET 1 tablet by mouth daily 21/03/11 FLUCONAZOLE 28536609400 No Longer Active Tesfaye Sherman MD Acti ve BACTRIM DS 800-160 MG ORAL TABLET 1 tab by mouth twice daily 201 07/08/06 TRIMETHOPRIM-SULFAMETHOXAZOLE 03500197102 No Longer Active Umer Sherman MD Active CLARITIN 10 MG ORAL TABLET Take one by mouth daily LORATADINE 95575641493 Active Tesfaye Sherman MD Active SUDAFED 12 HOUR 120 MG ORAL TABLET EXTENDED RELEASE 12 HOUR 1 pill twice daily if needed for congestion PSEUDOEPHEDRINE HCL 029158610 13 No Longer Active Tesfaye Sherman MD Active GABAPENTIN 300 MG ORAL CAPSULE 1 po daily GABAP ENTIN 09332023511 No Longer Active Tesfaye Sherman MD Active HYDROCHLOROTHIAZIDE 12.5 MG ORAL CAPSULE 1 pill by mough daily 2 HYDROCHLOROTHIAZIDE 56092327703 No Longer Active León Mariee APRN Active VENLAFAXINE HCL 75 MG ORAL TABLET 1 am 1/2 at noon 201 07/07/09 VENLAFAXINE HCL 12368531102 No Longer Active León Mariee APRN Act trent DIFLUCAN 100 MG ORAL TABLET 1 tablet by mouth daily 19/02/09 FLUCONAZOLE 44178602878 No Longer Active León Kodi [employer] Active DIFLUCAN 100 MG ORAL TABLET 1 tablet by mouth daily 19/02/09 FLUCONAZOLE 49491356377 No Longer Active Leónkash Mariee APRN Active OXYCODONE-ACETAMINOPHEN 5-325 MG ORAL TABLET Take one tablet by mouth every 6 hours 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 Use sparingly OXYCODONE-ACETAMINOPHEN 99344957666 Active Tesfaye villar MD Active CLONAZEPAM 0.5 MG ORAL TABLET Take 1/2 qam, and 1/2 qpm CLONAZEPAM 59038192846 Active Tesfaye Sherman MD Active PRELIEF 340 (65-50) MG (CA-P) ORAL TABLET CALCIUM GLYCEROPHOSPHATE 53236113418 No Longer Active Tesfaye Sherman MD Active SUDAFED 24 HOUR 240 MG ORAL TABLET EXTENDED RELEASE 24 HOUR 1 tab po daily PSEUDOEPHEDRINE HCL 43468122642 No Longer Active Raul Sherman MD Active RED YEAST RICE 600 MG ORAL CAPSULE 1 pill by mouth daily RED YEAST RICE EXTRACT 33221568984 No Longer Active Tesfaye Sherman MD Active REPHRESH PRO-B ORAL CAPSULE 1 tablet daily LACT OBACILLUS 96612462594 No Longer Active Tesfaye Sherman MD Active ABILIFY 2 MG ORAL TABLET 1 by mouth daily. MARIA ELENA PIPRAZOLE 83336707902 Active Tesfaye Sherman MD Active CYMBALTA 60 MG ORAL CAPSULE DELAYED RELEASE PARTICLES 1 cap by mouth daily for pain DULOXETINE HCL 54615547693 Active MARCUS Lindsay Active DIFLUCAN 100 MG ORAL TABLET 1 tablet by mouth daily 20 20/06/06 FLUCONAZOLE 81018061301 No Longer Active Tesfaye Sherman MD Acti ve PREDNISONE 20 MG ORAL TABLET 1 tablet by mouth twice d aily for 3 days, then 1 tablet daily for 3 days PREDNISONE 00291608020 No L onger Active Tesfaye Sherman MD Active BACTRIM DS 800-160 MG ORAL TABLET 1 tab by mouth twice daily 201 06/09/02 TRIMETHOPRIM-SULFAMETHOXAZOLE 92499731283 No Longer Active Katarina masterskatarina Lopezduyen Active DIFLUCAN 100 MG ORAL TABLET 1 tablet by mouth daily 20 20/05/01 FLUCONAZOLE 66295529866 No Longer Active Tesfaye Sherman MD Acti ve ZITHROMAX 250 MG ORAL TABLET 2 po today, then 1 po q days 2-5 20 20/04/28 AZITHROMYCIN 74195569929 No Longer Active Tesfaye Sherman MD Active MECLIZINE HCL 25 MG ORAL TABLET one tab po qday prn dizziness 20 17/09/06 MECLIZINE HCL 49345248053 No Longer Active Tesfaye Sherman MD Active PROAIR HFA 108 (90 BASE) MCG/ACT INHALATION AEROSOL SO LUTION 1 puff every 6 hours as needed ALBUTEROL SULFATE 02209269014 No Long er Active Tesfaye Sherman MD Active PREDNISONE 20 MG ORAL TABLET 1 tab twice daily for 3 d ay, then one daily for three days PREDNISONE 22863213247 No Longer Active Tesfaye Sherman MD Active MECLIZINE HCL 25 MG ORAL TABLET one 4 times a day as needed for dizziness MECLIZINE HCL 05215628062 Active Tesfaye Sherman MD Active AMOXICILLIN 500 MG ORAL CAPSULE 1 cap by mouth three times a day AMOXICILLIN 71158170056 No Longer Active Laurence Dominguez Acti ve DIFLUCAN 100 MG ORAL TABLET 1 tablet by mouth daily 20 19/08/26 FLUCONAZOLE 94541217138 No Longer Active Tesfaye Sherman MD Acti ve BACTRIM DS 800-160 MG ORAL TABLET 1 tab by mouth twice daily 201 05/10/28 TRIMETHOPRIM-SULFAMETHOXAZOLE 80863680949 No Longer Active Katarina Dominguez Active FOSAMAX 70 MG ORAL TABLET 1 po qweek. Take 30min prio r to first food/drink. Avoid lying down x 1 hour. ALENDRONATE SODIUM 65509295 144 No Longer Active Laurence Dominguez Active CYMBALTA 60 MG ORAL CAPSULE DELAYED RELEASE PARTICLES Take 1 tablet by mouth daily DULOXETINE HCL 16340445346 No Longer Active Edith Burch MD Active CYMBALTA 30 MG ORAL CAPSULE DELAYED RELEASE PARTICLES 1 cap by mouth daily with 60mg DULOXETINE HCL 21934098454 No Longer Active Jordan Burch MD Active DIFLUCAN 100 MG ORAL TABLET 1 tablet by mouth daily 20 19/03/05 FLUCONAZOLE 07136150322 No Longer Active Tesfaye Sherman MD Acti ve BACTRIM DS 800-160 MG ORAL TABLET 1 tab by mouth twice daily 201 05/06/28 TRIMETHOPRIM-SULFAMETHOXAZOLE 50006470911 No Longer Active Umer Sherman MD Active BACTRIM DS 800-160 MG ORAL TABLET 1 tab by mouth twice daily 201 05/04/15 TRIMETHOPRIM-SULFAMETHOXAZOLE 14309781910 No Longer Active Umer Sherman MD Active DIFLUCAN 150 MG ORAL TABLET 1 tablet by mouth daily 18/09/20 FLUCONAZOLE 92657154364 No Longer Active Tesfaye Sherman MD Acti ve BACTRIM DS 800-160 MG ORAL TABLET 1 tab by mouth twice daily 201 04/13/17 TRIMETHOPRIM-SULFAMETHOXAZOLE 48507068363 No Longer Active D patricia Sherman MD Active CEFTIN 250 MG ORAL TABLET 1 tablet twice daily x 7 days CEFUROXIME AXETIL 48521623658 No Longer Active Tesfaye Sherman MD Active DIFLUCAN 100 MG ORAL TABLET 1 tablet by mouth every other da y for 2 doses FLUCONAZOLE 93513494787 No Longer Active Tesfaye barron MD Active DIFLUCAN 100 MG ORAL TABLET 1 tablet by mouth daily X 3 DAYS 201 04/09/01 FLUCONAZOLE 76359415303 No Longer Active Rj Moss DO Ac tive MIRTAZAPINE 15 MG ORAL TABLET 1/2 tab by mouth at bedtime. 03/13 MIRTAZAPINE 00035795517 No Longer Active Tesfaye Sherman MD Active BACTRIM DS 800-160 MG ORAL TABLET 1 tab by mouth twice daily 201 04/09/01 TRIMETHOPRIM-SULFAMETHOXAZOLE 89700691695 No Longer Active D patricia Sherman MD Active PRAMIPEXOLE DIHYDROCHLORIDE 0.125 MG ORAL TABLET take 1 tablet po qhs for restless leg syndrome. PRAMIPEXOLE DIHYDROCHLORI DE 13882247624 No Longer Active Tesfaye Sherman MD Active MAGNESIUM 400 MG ORAL TABLET 1 tab po daily MAGNE SIUM 99222162272 Active Chelsea Cardenas APRN Active CETIRIZINE HCL 5 MG ORAL TABLET Take 1 tablet by mouth daily CETIRIZINE HCL 49981922999 No Longer Active Chelsea Cardenas APRN Activ e TRIMETHOPRIM 100 MG ORAL TABLET 1/2 qd TRIM ETHOPRIM 05081403999 No Longer Active Chelsea Cardenas APRN Active BACTRIM DS 800-160 MG ORAL TABLET 1 tab by mouth twice daily 201 04/04/11 TRIMETHOPRIM-SULFAMETHOXAZOLE 08873062107 No Longer Active D avid M Panna Maria MD Active BACTRIM DS 800-160 MG ORAL TABLET 1 tab by mouth twice daily X 10 DAYS TRIMETHOPRIM-SULFAMETHOXAZOLE 10902479689 No Longer Active Tesfaye Sherman MD Active AMOXICILLIN 500 MG ORAL CAPSULE 1 cap by mouth three times a day AMOXICILLIN 44909184539 No Longer Active Adriana Arredondo, [facility] A ctive B-12 1000 MCG ORAL LOZENGE 1 tab po daily CYANO COBALAMIN 41050599802 Active Tesfaye Sherman MD Active VITAMIN D3 2000 UNIT ORAL TABLET 1 daily, for vitamin D deficien cy CHOLECALCIFEROL 15228851722 No Longer Active Tesfaye Sherman MD Active ZITHROMAX 250 MG ORAL TABLET 2 po today, then 1 po q days 2-5 20 15/02/10 AZITHROMYCIN 35837077172 No Longer Active Tesfaye Sherman MD Active BACTRIM DS 800-160 MG ORAL TABLET 1 tab by mouth twice daily 201 03/03/23 TRIMETHOPRIM-SULFAMETHOXAZOLE 87041827799 No Longer Active Umer Sherman MD Active DIFLUCAN 150 MG ORAL TABLET 1 qd FLUCONAZOL E 08506182532 No Longer Active Kayla Cooper MD Active FLUTICASONE PROPIONATE 50 MCG/ACT NASAL SUSPENSION 1 spray each nostril twice daily FLUTICASONE PROPIONATE 21842091650 Active Umer Sherman MD Active LOVASTATIN 20 MG ORAL TABLET Take 1 tablet by mouth daily LOVASTATIN 75751314644 No Longer Active Tesfaye Sherman MD Acti ve MELOXICAM 7.5 MG ORAL TABLET 1 tablet by mouth daily 2 MELOXICAM 00885040604 No Longer Active Tesfaye Sherman MD Acti ve GABAPENTIN 300 MG ORAL CAPSULE Take two tablets by mouth every e vening GABAPENTIN 03286196961 No Longer Active Edith Burch MD A ctive GABAPENTIN 300 MG ORAL CAPSULE Take two tablets by mouth every e vening GABAPENTIN 300 MG ORAL CAPSULE 945980 GABAPENTIN I nactive MELOXICAM 7.5 MG ORAL TABLET 1 tablet by mouth daily 2 MELOXICAM 7.5 MG ORAL TABLET 334074 MELOXICAM Inactive LOVASTATIN 20 MG ORAL TABLET Take 1 tablet by mouth daily LOVASTATIN 20 MG ORAL TABLET 025232 LOVASTATIN Inactive DIFLUCAN 150 MG ORAL TABLET 1 qd DIFLUCAN 150 MG ORAL TABLET 384031 FLUCONAZOLE Inactive VITAMIN D3 2000 UNIT ORAL TABLET 1 daily, for vitamin D deficien cy VITAMIN D3 2000 UNIT ORAL TABLET CHOLECALCIFEROL Inactive AMOXICILLIN 500 MG ORAL CAPSULE 1 cap by mouth three times a day AMOXICILLIN 500 MG ORAL CAPSULE 781256 AMOXICILLIN Inactive BACTRIM DS 800-160 MG ORAL TABLET 1 tab by mouth twice daily X 10 DAYS BACTRIM DS 800-160 MG ORAL TABLET 339401 TRIMETHOPRIM-SULFAMETHOXAZOLE Inactive TRIMETHOPRIM 100 MG ORAL TABLET 1/2 qd 7 TRIMETHOPRIM 100 MG ORAL TABLET 494178 TRIMETHOPRIM Inactive CETIRIZINE HCL 5 MG ORAL TABLET Take 1 tablet by mouth daily CETIRIZINE HCL 5 MG ORAL TABLET 7579730 CETIRIZINE HCL Inactive PRAMIPEXOLE DIHYDROCHLORIDE 0.125 MG ORAL TABLET take 1 tablet po qhs for restless leg syndrome. PRAMIPEXOLE DIHYD ROCHLORIDE 0.125 MG ORAL TABLET 217063 PRAMIPEXOLE DIHYDROCHLORIDE Inactive MIRTAZAPINE 15 MG ORAL TABLET 1/2 tab by mouth at bedtime. 03/13 MIRTAZAPINE 15 MG ORAL TABLET 471880 MIRTAZAPINE In active DIFLUCAN 100 MG ORAL TABLET 1 tablet by mouth daily X 3 DAYS 201 04/09/01 DIFLUCAN 100 MG ORAL TABLET 713777 FLUCONAZOLE Inac tive DIFLUCAN 100 MG ORAL TABLET 1 tablet by mouth every other da y for 2 doses DIFLUCAN 100 MG ORAL TABLET 917168 FLUCONAZOLE Inactive CEFTIN 250 MG ORAL TABLET 1 tablet twice daily x 7 days CEFTIN 250 MG ORAL TABLET CEFUROXIME AXETIL Inactive CYMBALTA 30 MG ORAL CAPSULE DELAYED RELEASE PARTICLES 1 cap by mouth daily with 60mg CYMBALTA 30 MG ORAL CAPSULE DELAYED RELEASE PARTICLES 936621 DULOXETINE HCL Inactive CYMBALTA 60 MG ORAL CAPSULE DELAYED RELEASE PARTICLES Take 1 tablet by mouth daily CYMBALTA 60 MG ORAL CAPSULE DELAYED RELEA SE PARTICLES 596602 DULOXETINE HCL Inactive FOSAMAX 70 MG ORAL TABLET 1 po qweek. Take 30min prio r to first food/drink. Avoid lying down x 1 hour. FOSAMAX 70 MG ORAL TA BLET 900357 ALENDRONATE SODIUM Inactive DIFLUCAN 100 MG ORAL TABLET 1 tablet by mouth daily 19/08/26 DIFLUCAN 100 MG ORAL TABLET 382611 FLUCONAZOLE Inactive PREDNISONE 20 MG ORAL TABLET 1 tab twice daily for 3 d ay, then one daily for three days PREDNISONE 20 MG ORAL TABLET 470638 PREDNIS ONE Inactive PROAIR HFA 108 (90 BASE) MCG/ACT INHALATION AEROSOL SO LUTION 1 puff every 6 hours as needed PROAIR HFA 108 (90 B ASE) MCG/ACT INHALATION AEROSOL SOLUTION ALBUTEROL SULFATE Inactive MECLIZINE HCL 25 MG ORAL TABLET one tab po qday prn dizziness 20 17/09/06 MECLIZINE HCL 25 MG ORAL TABLET 748325 MECLIZINE HCL Inactive PREDNISONE 20 MG ORAL TABLET 1 tablet by mouth twice d aily for 3 days, then 1 tablet daily for 3 days PREDNISONE 20 MG ORAL TA BLET 313505 PREDNISONE Inactive DIFLUCAN 100 MG ORAL TABLET 1 tablet by mouth daily 20 20/06/06 DIFLUCAN 100 MG ORAL TABLET 728645 FLUCONAZOLE Inactive REPHRESH PRO-B ORAL CAPSULE 1 tablet daily REPHRESH PRO-B ORAL CAPSULE LACTOBACILLUS Inactive RED YEAST RICE 600 MG ORAL CAPSULE 1 pill by mouth daily RED YEAST RICE 600 MG ORAL CAPSULE 157345 RED YEAST RICE EXTRACT In active SUDAFED [...] daily 19/02/09 DIFLUCAN 100 MG ORAL TABLET 618436 FLUCONAZOLE Inactive DIFLUCAN 100 MG ORAL TABLET 1 tablet by mouth daily 19/02/09 DIFLUCAN 100 MG ORAL TABLET 516630 FLUCONAZOLE Inactive VENLAFAXINE HCL 75 MG ORAL TABLET 1 am 1/2 at noon 201 07/07/09 VENLAFAXINE HCL 75 MG ORAL TABLET 442516 VENLAFAXINE HCL Inacti ve GABAPENTIN 300 MG ORAL CAPSULE 1 po daily GABAPENTIN 300 MG ORAL CAPSULE 763708 GABAPENTIN Inactive SUDAFED 12 HOUR 120 MG ORAL TABLET EXTENDED RELEASE 12 HOUR 1 pill twice daily if needed for congestion SUDAFED 12 HOUR 120 MG ORAL TABLET EXTENDED RELEASE 12 HOUR PSEUDOEPHEDRINE HCL Inactive AMITRIPTYLINE HCL 10 MG ORAL TABLET 1 tablet nightly by mout h for neuropathy AMITRIPTYLINE HCL 10 MG ORAL TABLET 615313 AMITRIPTYLINE HCL Inactive AMITRIPTYLINE HCL 50 MG ORAL TABLET 1 po q hs for sleep AMITRIPTYLINE HCL 50 MG ORAL TABLET 992405 AMITRIPTYLINE HCL Inac tive PREDNISONE 20 MG ORAL TABLET 1 tab twice daily for 3 d ay, then one daily for three days PREDNISONE 20 MG ORAL TABLET 807732 PREDNIS ONE Inactive ROPINIROLE HCL 0.25 MG ORAL TABLET 1 TAB PO Q HS 05/31 ROPINIROLE HCL 0.25 MG ORAL TABLET 040176 ROPINIROLE HCL Inact trent ROPINIROLE HCL 0.5 MG ORAL TABLET 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 ROPINIROLE HCL 0.5 MG ORAL TABLET 147357 ROPINIR OLE HCL Inactive ROPINIROLE HCL 1 MG ORAL TABLET 1 tab po q hs ROPINIROLE HCL 1 MG ORAL TABLET 627693 ROPINIROLE HCL Inactive ROPINIROLE HCL 2 MG ORAL TABLET 1 po at hs 7 ROPINIROLE HCL 2 MG ORAL TABLET 344832 ROPINIROLE HCL Inactive MIRAPEX 0.125 MG ORAL TABLET 1 po nightly MIRAPEX 0.125 MG ORAL TABLET 913933 PRAMIPEXOLE DIHYDROCHLORIDE Inactive MIRAPEX 0.25 MG ORAL TABLET 1 tablet by mouth at night for r estless leg MIRAPEX 0.25 MG ORAL TABLET PRAMIPEXOLE D IHYDROCHLORIDE Inactive HYDROXYZINE HCL 25 MG ORAL TABLET 1 tab po at HS prn sleep 08/02 HYDROXYZINE HCL 25 MG ORAL TABLET 051561 HYDROXYZINE HC L Inactive DIFLUCAN 100 MG ORAL TABLET 1 tablet by mouth daily 21/08/28 DIFLUCAN 100 MG ORAL TABLET 179188 FLUCONAZOLE Inactive BACLOFEN 10 MG ORAL TABLET Take one tablet by mouth three times a day BACLOFEN 10 MG ORAL TABLET 147595 BACLOFEN Inact trent PREDNISONE 20 MG ORAL TABLET 1 tab twice daily for 3 d ay, then one daily for three days PREDNISONE 20 MG ORAL TABLET 715022 PREDNIS ONE Inactive UNISOM SLEEPMELTS 25 MG [...] 03/03/23 BACTRIM DS 800-160 MG ORAL TABLET 264928 TRIMETHOPRIM-SULFAMETHOXAZOLE Inactive ZITHROMAX 250 MG ORAL TABLET 2 po today, then 1 po q days 2-5 20 15/02/10 ZITHROMAX 250 MG ORAL TABLET 038552 AZITHROMYCIN Mayela ctive BACTRIM DS 800-160 MG [...] 20 19/03/05 DIFLUCAN 100 MG ORAL TABLET 579635 FLUCONAZOLE Inactive BACTRIM DS 800-160 MG ORAL TABLET 1 tab by mouth twice daily 201 05/10/28 BACTRIM DS 800-160 MG ORAL TABLET 19830105 TRIMETHOPRIM-SULFAMETHOXAZOLE Inactive AMOXICILLIN 500 MG ORAL CAPSULE 1 cap by mouth three times a day AMOXICILLIN 500 MG ORAL CAPSULE 378995 AMOXICILLIN Inactive ZITHROMAX 250 MG ORAL TABLET 2 po today, then 1 po q days 2-5 20 20/04/28 ZITHROMAX 250 MG ORAL TABLET 838946 AZITHROMYCIN Applegate ctive DIFLUCAN 100 MG ORAL TABLET 1 [...] 20 21/08/28 ZITHROMAX 250 MG ORAL TABLET 452669 AZITHROMYCIN Applegate ctive FLUCONAZOLE 100 MG ORAL TABLET 1 [...] LIVING WILL ON FILE DURABLE POWER OF PERMIT REVIEW ASSISTANT FOR HEALTHCARE Vital Signs Date Name Value [...] Magnesium - Chemistry cholesterol, serum 196 mg/dL 869-100 0075/07/30 triglyceride, serum, fasting 86 mg/dL 30-200 HDL cholesterol, serum 41 mg/dL 32-60 LDL cholesterol, serum 138 mg/dL 0-130 sodium, serum 140 mmol/L 663-824 0084/07/30 carbon dioxide, venous blood 28.6 mmol/L 21.0-32 [...] 5.0-8.5 Encounters Code Encounter Date Provider Facility CPT-11789 [id number] Vst-Est Level IV 08:56:46 C BRIDGET Sherman MD [facility] CPT-73724 [id number] Vst-Est Level IV 10:36:10 C BRIDGET Sherman MD [facility] CPT-54623 [id number] Vst-Est Level IV 13:49:08 PIECE HAND Mendy Stovallord [facility] CPT-17099 [id number] Vst-Est Level IV 11:39:[address] Tesfaye Sherman MD [facility] CPT-73715 12035-Vug Vst-Est Level IV 14:08:03 C BRIDGET Sherman MD [facility] CPT-28494 Level 3 Est. Patient 18:06:36 CDT Tesfaye pearson MD [facility] CPT-20314 [id number] Vst-Est Level IV 17:09:34 C BRIDGET Sherman MD [facility] CPT-83418 Level 3 Est. Patient 17:27:08 CDT León Bandar hernandez APRN [facility] CPT-45606 [id number] Vst-Est Level IV 14:00:[address] Tesfaye Sherman MD [facility] CPT-65844 [id number] Vst-Est Level IV 19:27:[address] Tesfaye Sherman MD [facility] CPT-09114 [id number] Vst-Est Level IV 10:41:41 C BRIDGET Sherman MD [facility] CPT-23612 [id number] Vst-Est Level III 09:40:56 CDT Tesfaye Sherman MD [facility] CPT-01078 Level 4 Est. Patient 22:18:12 CDT Tesfaye pearson MD [facility] CPT-16817 Level 4 Est. Patient 14:44:33 PIECE HAND Tesfaye pearson MD [facility] CPT-22026 Level 4 Est. Patient 13:55:29 PIECE HAND Tesfaye pearson MD [facility] CPT-76166 Level 4 Est. Patient 17:07:34 PIECE HAND Tesfaye pearson MD [facility] CPT-18158 Level 4 Est. Patient 13:56:54 CDT Tesfaye pearson MD [facility] CPT-58982 Level 4 Est. Patient 13:24:25 CDT Chelsea sanz APRN [facility] CPT-63068 Level 4 Est. Patient 09:14:56 CDT Tesfaye pearson MD [facility]-11893 Level 4 Est. Patient 18:40:25 PIECE HAND Tesfaye pearson MD [facility]-61215 Level 4 Est. Patient 18:13:07 PIECE HAND Tesfaye pearson MD [facility]-74387 Level 3 Est. Patient 10:46:32 CDT Rj cotto DO [facility]-96386 Level 4 Est. Patient 20:19:25 CDT Tesfaye pearson MD [facility]-75627 Level 3 Est. Patient 09:07:31 CDT Tesfaye pearson MD [facility] CPT-88677 Level 4 Est. Patient 13:12:56 CDT Tesfaye pearson MD [facility]-42795 Level 4 Est. Patient 21:24:55 PIECE HAND Tesfaye pearson MD [facility] CPT-70056 Level 3 Est. Patient 13:45:04 PIECE HAND Tesfaye pearson MD [facility] CPT-53677 Level 4 Est. Patient 13:50:45 CDT Tesfaye pearson MD [facility] CPT-96538 Level 3 Est. Patient 10:16:10 CDT Tesfaye pearson MD [facility] CPT-69910 Level 3 Est. Patient 16:36:07 PIECE HAND Kayla jameson MD [facility]-75840 Level 4 Est. Patient 16:00:14 PIECE HAND Tesfaye pearson MD [facility]-66592 Level 4 Est. Patient 11:02:24 PIECE HAND Tesfaye pearson MD [facility] CPT-07437 Level 3 Est. Patient 20:21:43 PIECE HAND Kayla jameson MD [facility] CPT-69960 Level 3 Est. Patient 13:27:28 PIECE HAND Kayla jameson MD [facility] CPT-50549 Level 4 Est. Patient 15:57:17 PIECE HAND Tesfaye pearson MD [facility] CPT-03255 Level 3 New Patient 13:25:47 CDT Tesfaye kidd MD [facility] CPT-34807 Level 3 New Patient 17:22:21 CDT J John angel [facility] Procedures Code Procedure Name Date Entry Date Standard Desc ription CPT-36919 Venipuncture Draw Fee 10:04:55 CDT CPT-30524 Prv Med Est Pt 40-64yrs 09:01:58 CDT 03/09 CPT-G0439 Subsequent Annual Wellness Exam 11:25:51 CDT [id number] ([id number] 2P) Patient Reason Influenza immu nization not administered 13:25:19 PIECE HAND CPT-61876 Bone Density - XRAY USE ONLY 15:21:33 CDT CPT-78269 Venipuncture Draw Fee 16:12:22 CDT CPT-G0439 Subsequent Annual Wellness Exam 18:06:36 CDT CPT-G0439 Subsequent Annual Wellness Exam 22:18:11 CDT CPT-68192 Bone Density - XRAY USE ONLY 11:43:58 CDT CPT-50176 Bone Density - XRAY USE ONLY 10:05:16 CDT CPT-02393 Prv Med New Pt 40-64 yrs 18:19:25 CDT 2016 CPT-08342 Foot, right, comp min 3V - XRAY USE ONLY 10:38:34 CDT CPT-G0439 Subsequent Annual Wellness Exam 13:55:04 CDT CPT-G0438 Initial Annual Wellness Exam 11:23:17 CD T CPT-J2930 Solu Medrol 125 mg (Methyl Prednisolone Sodium Succinate) 17:29:12 PIECE HAND CPT-26423 Abx/Therapy Injection 17:29:11 PIECE HAND CPT-J2930 Solu Medrol 125 mg (Methyl Prednisolone Sodium Succinate) 12:34:38 PIECE HAND CPT-J3420 Vitamin B12 1000mcg (Cyanocobalamin) 09:12:55 CDT CPT-J3420 Vitamin B12 1000mcg (Cyanocobalamin) 16:28:06 PIECE HAND CPT-32173 Venipuncture Draw Fee 08:39:53 CDT CPT-J3420 Vitamin B12 1000mcg (Cyanocobalamin) 08:46:22 CDT CPT-09137 Abx/Therapy Injection 08:46:22 CDT CPT-J3420 Vitamin B12 1000mcg (Cyanocobalamin) 08:41:26 CDT CPT-27943 Abx/Therapy Injection 08:41:26 CDT CPT-J3420 Vitamin B12 1000mcg (Cyanocobalamin) 08:57:15 CDT CPT-50071 Abx/Therapy Injection 08:57:15 CDT CPT-J3420 Vitamin B12 1000mcg (Cyanocobalamin) 10:59:03 CDT CPT-17832 Abx/Therapy Injection 10:59:03 CDT CPT-J3420 Vitamin B12 1000mcg (Cyanocobalamin) 15:05:39 CDT CPT-73289 Abx/Therapy Injection 15:05:39 CDT CPT-J3420 Vitamin B12 1000mcg (Cyanocobalamin) 13:50:45 CDT CPT-J3420 Vitamin B12 1000mcg (Cyanocobalamin) 08:48:55 CDT CPT-97898 Abx/Therapy Injection 08:48:55 CDT CPT-J3420 Vitamin B12 1000mcg (Cyanocobalamin) 09:14:54 CDT CPT-29679 Abx/Therapy Injection 09:14:54 CDT CPT-J3420 Vitamin B12 1000mcg (Cyanocobalamin) 09:06:06 CDT CPT-78417 Abx/Therapy Injection 09:06:06 CDT CPT-J3420 Vitamin B12 1000mcg (Cyanocobalamin) 09:49:14 CDT CPT-73114 Abx/Therapy Injection 09:49:14 CDT CPT-J3420 Vitamin B12 1000mcg (Cyanocobalamin) 09:10:30 PIECE HAND CPT-10695 Abx/Therapy Injection 09:10:30 PIECE HAND CPT-J3420 Vitamin B12 1000mcg (Cyanocobalamin) 09:11:07 PIECE HAND CPT-76031 Abx/Therapy Injection 09:11:07 PIECE HAND CPT-J3420 Vitamin B12 1000mcg (Cyanocobalamin) 09:57:03 PIECE HAND CPT-97032 Abx/Therapy Injection 09:57:03 PIECE HAND CPT-J3420 Vitamin B12 1000mcg (Cyanocobalamin) 09:23:21 PIECE HAND CPT-07323 Abx/Therapy Injection 09:23:21 PIECE HAND CPT-79411 Urine Dip (Floor Use Only) 20:21:44 PIECE HAND 201 02/12/11 CPT-81838 UA Dip Auto (Floor Use Only) 10:04:39 PIECE HAND 2 CPT-31719 Urine Dip (Floor Use Only) 13:27:28 PIECE HAND 201 02/12/01 CPT-45547 Bladder Scan 13:27:28 PIECE HAND CPT-62590 Abd single AP View 14:30:51 PIECE HAND CPT-OV Office Visit 10:15:43 CDT CPT-87842 Urine Dip (Floor Use Only) 17:22:21 CDT 201 02/09/02 CPT-64744 Bladder Scan 17:22:21 CDT
--- OUTSIDE RECORDS SUMMARY | 2020-05-05 11:56 | XMS REPORT | Clinical Summary ---
Author Author Talon, Jeri Wood Organization [email or web address] Address Unknown Phone Unavailable Allergies, Adverse Reactions, [...] general medical examination at [facility] acility Sinusitis 461.9 Resolved Tesfaye Sherman [...] Tesfaye Sherman MD Dysuria High risk meds [facility] use V58.6 Active Tesfaye Sherman MD Long-term (current) drug use Yeast infection 112.9 Inactive Tesfaye Sherman MD Candidiasis of unspecified site Upper respiratory infection 465.9 Inactive Tesfaye Sherman MD Acute upper respiratory infections of un specified site Lower extremity edema, bilateral 782.3 Active 201 07/07/09 León Kodi [employer]PER[employer] Edema Peripheral neuropathy 356.9 Active Tesfaye [...] Index 20.0-20.9 Adult Eldon Shah [facility] Dysuria ICD-788.1 Inactive Tesfaye Sherman MD 201 07/05/07 Yeast infection ICD-112.9 Inactive Tesfaye lamb MD Upper respiratory infection ICD-465.9 Inactive Tesfaye Sherman MD Overweight (BMI 25-29.9) Inactive Adriana Arredondo [facility] Medication List Medication Instructions Start Date Stop Date Generic Name NDC Status Provider Patient Instruction FUROSEMIDE 20 MG ORAL TABLET take 1/2 to 1 tablet by mouth d aily prn swelling FUROSEMIDE [id number] Active Tesfaye Sherman MD Active FENOFIBRATE 145 MG ORAL TABLET Take 1 tablet by mouth once daily 20 23/12/19 FENOFIBRATE 77212934220 Active Tesfaye Sherman MD Active PRAMIPEXOLE DIHYDROCHLORIDE 0.75 MG ORAL TABLET take 1 tab po qhs for restless leg syndrome. PRAMIPEXOLE DIHYDROCHLORIDE 72468856334 Acti ve Tesfaye Sherman MD Active DIFLUCAN 100 MG ORAL TABLET 1 tablet by mouth daily 20 23/12/05 FLUCONAZOLE 10188012543 No Longer Active Tesfaye Sherman MD Acti ve [facility] NIACIN FLUSH FREE 400-100 MG ORAL CAPSULE 1 daily NIACIN-INOSITOL 75719013970 No Longer Active Tesfaye Sherman MD A ctive FISH OIL 1000 MG ORAL CAPSULE DELAYED RELEASE 1 pill b y mouth daily for cholesterol OMEGA-3 FATTY ACIDS 66290248300 No Longe r Active Tesfaye Sherman MD Active UNISOM SLEEPMELTS 25 MG ORAL TABLET DISINTEGRATING 1.5 po q hs DIPHENHYDRAMINE HCL (SLEEP) 83822234593 No Longer Active Venkata Sherman MD Active PREDNISONE 20 MG ORAL TABLET 1 tab twice daily for 3 d ay, then one daily for three days PREDNISONE 91848816187 No Longer Active Tesfaye Sherman MD Active BACLOFEN 10 MG ORAL TABLET Take one tablet by mouth three times a day BACLOFEN 16507746570 No Longer Active Tesfaye Sherman MD Active LIDOCAINE 4 % EXTERNAL CREAM Apply to back prn pain LIDOCAINE 15946497350 Active Tesfaye Sherman MD Active TIZANIDINE HCL 2 MG ORAL TABLET 2 Mg in the AM and 6mg q hs 07/05 TIZANIDINE HCL 88277472225 Active Tesfaye Sherman MD Active HYDROXYZINE HCL 25 MG TABS TAKE 1 TABLET BY MOUTH AT B EDTIME NEEDED FOR SLEEP HYDROXYZINE HCL 98782364204 Active JOSHUA Lindsay Active FLUCONAZOLE 100 MG ORAL TABLET 1 by mouth daily for yeast infect ion FLUCONAZOLE 25656903620 No Longer Active Laurence Dominguez Acti ve ZITHROMAX 250 MG ORAL TABLET 2 po today, then 1 po q days 2-5 20 21/08/28 AZITHROMYCIN 41093567624 No Longer Active Tesfaye Sherman MD Active DIFLUCAN 100 MG ORAL TABLET 1 tablet by mouth daily 20 21/08/28 FLUCONAZOLE 02651070822 No Longer Active Tesfaye Sherman MD Acti ve HYDROXYZINE HCL 25 MG ORAL TABLET 1 tab po at HS prn sleep 08/02 HYDROXYZINE HCL 79294667382 No Longer Active Tesfaye Sherman MD Active MIRAPEX 0.5 MG ORAL TABLET 1 tablet at night for restless leg. 2018 PRAMIPEXOLE DIHYDROCHLORIDE 13080411187 Active Laurenceyohana Lopezida Active MIRAPEX 0.25 MG ORAL TABLET 1 tablet by mouth at night for r estless leg PRAMIPEXOLE DIHYDROCHLORIDE 15597587479 No Longer Act trent Laurence Dominguez Active MIRAPEX 0.125 MG ORAL TABLET 1 po nightly PRAMIPEXOLE DIHYDROCHLORIDE 59051583409 No Longer Active Laurence Dominguez Active ROPINIROLE HCL 2 MG ORAL TABLET 1 po at hs ROPI NIROLE HCL 48114170413 No Longer Active Laurenceyohana Lopezida Active ROPINIROLE HCL 1 MG ORAL TABLET 1 tab po q hs ROPINIROLE HCL 06514022958 No Longer Active Laurenceyohana Dominguez Active ROPINIROLE HCL 0.5 MG ORAL TABLET 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 ROPINIROLE HCL 47416375413 No Longer Active MARCUS Panchal Active ROPINIROLE HCL 0.25 MG ORAL TABLET 1 TAB PO Q HS 05/31 ROPINIROLE HCL 56923203304 No Longer Active Tesfaye Sherman MD Ac tive PREDNISONE 20 MG ORAL TABLET 1 tab twice daily for 3 d ay, then one daily for three days PREDNISONE 08757772006 No Longer Active Tesfaye Sherman MD Active AMITRIPTYLINE HCL 50 MG ORAL TABLET 1 po q hs for sleep AMITRIPTYLINE HCL 15519882331 No Longer Active Tesfaye Sherman MD Active AMITRIPTYLINE HCL 10 MG ORAL TABLET 1 tablet nightly by mout h for neuropathy AMITRIPTYLINE HCL 90122475040 No Longer Active MARCUS Stapleton Active DIFLUCAN 100 MG ORAL TABLET 1 tablet by mouth daily 21/03/11 FLUCONAZOLE 35870717666 No Longer Active Tesfaye Sherman MD Acti ve BACTRIM DS 800-160 MG ORAL TABLET 1 tab by mouth twice daily 201 07/08/06 TRIMETHOPRIM-SULFAMETHOXAZOLE 09536177716 No Longer Active Umer Sherman MD Active CLARITIN 10 MG ORAL TABLET Take one by mouth daily LORATADINE 81988089506 Active Tesfaye Sherman MD Active SUDAFED 12 HOUR 120 MG ORAL TABLET EXTENDED RELEASE 12 HOUR 1 pill twice daily if needed for congestion PSEUDOEPHEDRINE HCL 334287600 13 No Longer Active Tesfaye Sherman MD Active GABAPENTIN 300 MG ORAL CAPSULE 1 po daily GABAP ENTIN 82302574144 No Longer Active Tesfaye Sherman MD Active HYDROCHLOROTHIAZIDE 12.5 MG ORAL CAPSULE 1 pill by mough daily 2 HYDROCHLOROTHIAZIDE 69807313074 No Longer Active León Mariee APRN Active VENLAFAXINE HCL 75 MG ORAL TABLET 1 am 1/2 at noon 201 07/07/09 VENLAFAXINE HCL 25432962792 No Longer Active León Mariee APRN Act trent DIFLUCAN 100 MG ORAL TABLET 1 tablet by mouth daily 19/02/09 FLUCONAZOLE 93847473957 No Longer Active León 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 Use sparingly OXYCODONE-ACETAMINOPHEN 79932601159 Active Tesfaye villar MD Active CLONAZEPAM 0.5 MG ORAL TABLET Take 1/2 qam, and 1/2 qpm CLONAZEPAM 68989181426 Active Tesfaye Sherman MD Active PRELIEF 340 (65-50) MG (CA-P) ORAL TABLET CALCIUM GLYCEROPHOSPHATE 85721719640 No Longer Active Tesfaye Sherman MD Active SUDAFED 24 HOUR 240 MG ORAL TABLET EXTENDED RELEASE 24 HOUR 1 tab po daily PSEUDOEPHEDRINE HCL 96914146859 No Longer Active Raul Sherman MD Active RED YEAST RICE 600 MG ORAL CAPSULE 1 pill by mouth daily RED YEAST RICE EXTRACT 81860907839 No Longer Active Tesfaye Sherman MD Active REPHRESH PRO-B ORAL CAPSULE 1 tablet daily LACT OBACILLUS 76328273632 No Longer Active Tesfaye Sherman MD Active ABILIFY 2 MG ORAL TABLET 1 by mouth daily. MARIA ELENA PIPRAZOLE 10888287148 Active Tesfaye Sherman MD Active CYMBALTA 60 MG ORAL CAPSULE DELAYED RELEASE PARTICLES 1 cap by mouth daily for pain DULOXETINE HCL 29097586833 Active MARCUS Lindsay Active DIFLUCAN 100 MG ORAL TABLET 1 tablet by mouth daily 20 20/06/06 FLUCONAZOLE 54422908149 No Longer Active Tesfaye Sherman MD Acti ve PREDNISONE 20 MG ORAL TABLET 1 tablet by mouth twice d aily for 3 days, then 1 tablet daily for 3 days PREDNISONE 16335292192 No L onger Active Tesfaye Sherman MD Active BACTRIM DS 800-160 MG ORAL TABLET 1 tab by mouth twice daily 201 06/09/02 TRIMETHOPRIM-SULFAMETHOXAZOLE 94382776771 No Longer Active Katarina masterskatarina Lopezduyen Active DIFLUCAN 100 MG ORAL TABLET 1 tablet by mouth daily 20 20/05/01 FLUCONAZOLE 23498281174 No Longer Active Tesfaye Sherman MD Acti ve ZITHROMAX 250 MG ORAL TABLET 2 po today, then 1 po q days 2-5 20 20/04/28 AZITHROMYCIN 70228776761 No Longer Active Tesfaye Sherman MD Active MECLIZINE HCL 25 MG ORAL TABLET one tab po qday prn dizziness 20 17/09/06 MECLIZINE HCL 01417406252 No Longer Active Tesfaye Sherman MD Active PROAIR HFA 108 (90 BASE) MCG/ACT INHALATION AEROSOL SO LUTION 1 puff every 6 hours as needed ALBUTEROL SULFATE 38643611927 No Long er Active Tesfaye Sherman MD Active PREDNISONE 20 MG ORAL TABLET 1 tab twice daily for 3 d ay, then one daily for three days PREDNISONE 73836259525 No Longer Active Tesfaye Sherman MD Active MECLIZINE HCL 25 MG ORAL TABLET one 4 times a day as needed for dizziness MECLIZINE HCL 32352040457 Active Tesfaye Sherman MD Active AMOXICILLIN 500 MG ORAL CAPSULE 1 cap by mouth three times a day AMOXICILLIN 73524248400 No Longer Active Laurence Dominguez Acti ve DIFLUCAN 100 MG ORAL TABLET 1 tablet by mouth daily 20 19/08/26 FLUCONAZOLE 19234795882 No Longer Active Tesfaye Sherman MD Acti ve BACTRIM DS 800-160 MG ORAL TABLET 1 tab by mouth twice daily 201 05/10/28 TRIMETHOPRIM-SULFAMETHOXAZOLE 50922461897 No Longer Active Katarina Dominguez Active FOSAMAX 70 MG ORAL TABLET 1 po qweek. Take 30min prio r to first food/drink. Avoid lying down x 1 hour. ALENDRONATE SODIUM 84834542 144 No Longer Active Laurence Dominguez Active CYMBALTA 60 MG ORAL CAPSULE DELAYED RELEASE PARTICLES Take 1 tablet by mouth daily DULOXETINE HCL 68203011025 No Longer Active Edith Burch MD Active CYMBALTA 30 MG ORAL CAPSULE DELAYED RELEASE PARTICLES 1 cap by mouth daily with 60mg DULOXETINE HCL 94671162401 No Longer Active Jordan Burch MD Active DIFLUCAN 100 MG ORAL TABLET 1 tablet by mouth daily 20 19/03/05 FLUCONAZOLE 24278826830 No Longer Active Tesfaye Sherman MD Acti ve BACTRIM DS 800-160 MG ORAL TABLET 1 tab by mouth twice daily 201 05/06/28 TRIMETHOPRIM-SULFAMETHOXAZOLE 60166619298 No Longer Active Umer hSerman MD Active BACTRIM DS 800-160 MG ORAL TABLET 1 tab by mouth twice daily 201 05/04/15 TRIMETHOPRIM-SULFAMETHOXAZOLE 45636041993 No Longer Active Umer Sherman MD Active DIFLUCAN 150 MG ORAL TABLET 1 tablet by mouth daily 18/09/20 FLUCONAZOLE 00013704613 No Longer Active eTsfaye Sherman MD Acti ve BACTRIM DS 800-160 MG ORAL TABLET 1 tab by mouth twice daily 201 04/13/17 TRIMETHOPRIM-SULFAMETHOXAZOLE 62846340593 No Longer Active D patricia Sherman MD Active CEFTIN 250 MG ORAL TABLET 1 tablet twice daily x 7 days CEFUROXIME AXETIL 83564958875 No Longer Active Tesfaye Sherman MD Active DIFLUCAN 100 MG ORAL TABLET 1 tablet by mouth every other da y for 2 doses FLUCONAZOLE 78661343117 No Longer Active Tesfaye barron MD Active DIFLUCAN 100 MG ORAL TABLET 1 tablet by mouth daily X 3 DAYS 201 04/09/01 FLUCONAZOLE 64161488074 No Longer Active Rj Moss DO Ac tive MIRTAZAPINE 15 MG ORAL TABLET 1/2 tab by mouth at bedtime. 03/13 MIRTAZAPINE 61615948276 No Longer Active Tesfaye Sherman MD Active BACTRIM DS 800-160 MG ORAL TABLET 1 tab by mouth twice daily 201 04/09/01 TRIMETHOPRIM-SULFAMETHOXAZOLE 44102112623 No Longer Active D patricia Sherman MD Active PRAMIPEXOLE DIHYDROCHLORIDE 0.125 MG ORAL TABLET take 1 tablet po qhs for restless leg syndrome. PRAMIPEXOLE DIHYDROCHLORI DE 78246440682 No Longer Active Tesfaye Sherman MD Active MAGNESIUM 400 MG ORAL TABLET 1 tab po daily MAGNE SIUM 22283601392 Active Chelsea Cardenas APRN Active CETIRIZINE HCL 5 MG ORAL TABLET Take 1 tablet by mouth daily CETIRIZINE HCL 58404909699 No Longer Active Chelsea Cardenas APRN Activ e TRIMETHOPRIM 100 MG ORAL TABLET 1/2 qd TRIM ETHOPRIM 22190788159 No Longer Active Chelsea Cardenas APRN Active BACTRIM DS 800-160 MG ORAL TABLET 1 tab by mouth twice daily 201 04/04/11 TRIMETHOPRIM-SULFAMETHOXAZOLE 56628033975 No Longer Active D avid M Diamond MD Active BACTRIM DS 800-160 MG ORAL TABLET 1 tab by mouth twice daily X 10 DAYS TRIMETHOPRIM-SULFAMETHOXAZOLE 85429080670 No Longer Active Tesfaye Sherman MD Active AMOXICILLIN 500 MG ORAL CAPSULE 1 cap by mouth three times a day AMOXICILLIN 79510013312 No Longer Active Adriana Arredondo, [facility] A ctive B-12 1000 MCG ORAL LOZENGE 1 tab po daily CYANO COBALAMIN 95690799737 Active Tesfaye Sherman MD Active VITAMIN D3 2000 UNIT ORAL TABLET 1 daily, for vitamin D deficien cy CHOLECALCIFEROL 86955562775 No Longer Active Tesfaye Sherman MD Active ZITHROMAX 250 MG ORAL TABLET 2 po today, then 1 po q days 2-5 20 15/02/10 AZITHROMYCIN 76857735581 No Longer Active Tesfaye Sherman MD Active BACTRIM DS 800-160 MG ORAL TABLET 1 tab by mouth twice daily 201 03/03/23 TRIMETHOPRIM-SULFAMETHOXAZOLE 68800025015 No Longer Active Umer Sherman MD Active DIFLUCAN 150 MG ORAL TABLET 1 qd FLUCONAZOL E 98193393535 No Longer Active Kayla Cooper MD Active FLUTICASONE PROPIONATE 50 MCG/ACT NASAL SUSPENSION 1 spray each nostril twice daily FLUTICASONE PROPIONATE 55914063371 Active Umer Sherman MD Active LOVASTATIN 20 MG ORAL TABLET Take 1 tablet by mouth daily LOVASTATIN 72209036069 No Longer Active Tesfaye Sherman MD Acti ve MELOXICAM 7.5 MG ORAL TABLET 1 tablet by mouth daily 2 MELOXICAM 58299713186 No Longer Active Tesfaye Sherman MD Acti ve GABAPENTIN 300 MG ORAL CAPSULE Take two tablets by mouth every e vening GABAPENTIN 53749824160 No Longer Active Edith Burch MD A ctive GABAPENTIN 300 MG ORAL CAPSULE Take two tablets by mouth every e vening GABAPENTIN 300 MG ORAL CAPSULE 727001 GABAPENTIN I nactive MELOXICAM 7.5 MG ORAL TABLET 1 tablet by mouth daily 2 MELOXICAM 7.5 MG ORAL TABLET 628063 MELOXICAM Inactive LOVASTATIN 20 MG ORAL TABLET Take 1 tablet by mouth daily LOVASTATIN 20 MG ORAL TABLET 556345 LOVASTATIN Inactive DIFLUCAN 150 MG ORAL TABLET 1 qd DIFLUCAN 150 MG ORAL TABLET 021567 FLUCONAZOLE Inactive VITAMIN D3 2000 UNIT ORAL TABLET 1 daily, for vitamin D deficien cy VITAMIN D3 2000 UNIT ORAL TABLET CHOLECALCIFEROL Inactive AMOXICILLIN 500 MG ORAL CAPSULE 1 cap by mouth three times a day AMOXICILLIN 500 MG ORAL CAPSULE 687944 AMOXICILLIN Inactive BACTRIM DS 800-160 MG ORAL TABLET 1 tab by mouth twice daily X 10 DAYS BACTRIM DS 800-160 MG ORAL TABLET 622817 TRIMETHOPRIM-SULFAMETHOXAZOLE Inactive TRIMETHOPRIM 100 MG ORAL TABLET 1/2 qd 7 TRIMETHOPRIM 100 MG ORAL TABLET 215777 TRIMETHOPRIM Inactive CETIRIZINE HCL 5 MG ORAL TABLET Take 1 tablet by mouth daily CETIRIZINE HCL 5 MG ORAL TABLET 9662475 CETIRIZINE HCL Inactive PRAMIPEXOLE DIHYDROCHLORIDE 0.125 MG ORAL TABLET take 1 tablet po qhs for restless leg syndrome. PRAMIPEXOLE DIHYD ROCHLORIDE 0.125 MG ORAL TABLET 290222 PRAMIPEXOLE DIHYDROCHLORIDE Inactive MIRTAZAPINE 15 MG ORAL TABLET 1/2 tab by mouth at bedtime. 03/13 MIRTAZAPINE 15 MG ORAL TABLET 230946 MIRTAZAPINE In active DIFLUCAN 100 MG ORAL TABLET 1 tablet by mouth daily X 3 DAYS 201 04/09/01 DIFLUCAN 100 MG ORAL TABLET 500649 FLUCONAZOLE Inac tive DIFLUCAN 100 MG ORAL TABLET 1 tablet by mouth every other da y for 2 doses DIFLUCAN 100 MG ORAL TABLET 691042 FLUCONAZOLE Inactive CEFTIN 250 MG ORAL TABLET 1 tablet twice daily x 7 days CEFTIN 250 MG ORAL TABLET CEFUROXIME AXETIL Inactive CYMBALTA 30 MG ORAL CAPSULE DELAYED RELEASE PARTICLES 1 cap by mouth daily with 60mg CYMBALTA 30 MG ORAL CAPSULE DELAYED RELEASE PARTICLES 272494 DULOXETINE HCL Inactive CYMBALTA 60 MG ORAL CAPSULE DELAYED RELEASE PARTICLES Take 1 tablet by mouth daily CYMBALTA 60 MG ORAL CAPSULE DELAYED RELEA SE PARTICLES 724750 DULOXETINE HCL Inactive FOSAMAX 70 MG ORAL TABLET 1 po qweek. Take 30min prio r to first food/drink. Avoid lying down x 1 hour. FOSAMAX 70 MG ORAL TA BLET 583768 ALENDRONATE SODIUM Inactive DIFLUCAN 100 MG ORAL TABLET 1 tablet by mouth daily 19/08/26 DIFLUCAN 100 MG ORAL TABLET 704481 FLUCONAZOLE Inactive PREDNISONE 20 MG ORAL TABLET 1 tab twice daily for 3 d ay, then one daily for three days PREDNISONE 20 MG ORAL TABLET 949915 PREDNIS ONE Inactive PROAIR HFA 108 (90 BASE) MCG/ACT INHALATION AEROSOL SO LUTION 1 puff every 6 hours as needed PROAIR HFA 108 (90 B ASE) MCG/ACT INHALATION AEROSOL SOLUTION ALBUTEROL SULFATE Inactive MECLIZINE HCL 25 MG ORAL TABLET one tab po qday prn dizziness 20 17/09/06 MECLIZINE HCL 25 MG ORAL TABLET 891951 MECLIZINE HCL Inactive PREDNISONE 20 MG ORAL TABLET 1 tablet by mouth twice d aily for 3 days, then 1 tablet daily for 3 days PREDNISONE 20 MG ORAL TA BLET 479678 PREDNISONE Inactive DIFLUCAN 100 MG ORAL TABLET 1 tablet by mouth daily 20 20/06/06 DIFLUCAN 100 MG ORAL TABLET 790076 FLUCONAZOLE Inactive REPHRESH PRO-B ORAL CAPSULE 1 tablet daily REPHRESH PRO-B ORAL CAPSULE LACTOBACILLUS Inactive RED YEAST RICE 600 MG ORAL CAPSULE 1 pill by mouth daily RED YEAST RICE 600 MG ORAL CAPSULE 377640 RED YEAST RICE EXTRACT In active SUDAFED [...] daily 19/02/09 DIFLUCAN 100 MG ORAL TABLET 134745 FLUCONAZOLE Inactive DIFLUCAN 100 MG ORAL TABLET 1 tablet by mouth daily 19/02/09 DIFLUCAN 100 MG ORAL TABLET 273468 FLUCONAZOLE Inactive VENLAFAXINE HCL 75 MG ORAL TABLET 1 am 1/2 at noon 201 07/07/09 VENLAFAXINE HCL 75 MG ORAL TABLET 344774 VENLAFAXINE HCL Inacti ve GABAPENTIN 300 MG ORAL CAPSULE 1 po daily GABAPENTIN 300 MG ORAL CAPSULE 195144 GABAPENTIN Inactive SUDAFED 12 HOUR 120 MG ORAL TABLET EXTENDED RELEASE 12 HOUR 1 pill twice daily if needed for congestion SUDAFED 12 HOUR 120 MG ORAL TABLET EXTENDED RELEASE 12 HOUR PSEUDOEPHEDRINE HCL Inactive AMITRIPTYLINE HCL 10 MG ORAL TABLET 1 tablet nightly by mout h for neuropathy AMITRIPTYLINE HCL 10 MG ORAL TABLET 500577 AMITRIPTYLINE HCL Inactive AMITRIPTYLINE HCL 50 MG ORAL TABLET 1 po q hs for sleep AMITRIPTYLINE HCL 50 MG ORAL TABLET 784521 AMITRIPTYLINE HCL Inac tive PREDNISONE 20 MG ORAL TABLET 1 tab twice daily for 3 d ay, then one daily for three days PREDNISONE 20 MG ORAL TABLET 027469 PREDNIS ONE Inactive ROPINIROLE HCL 0.25 MG ORAL TABLET 1 TAB PO Q HS 05/31 ROPINIROLE HCL 0.25 MG ORAL TABLET 461291 ROPINIROLE HCL Inact trent ROPINIROLE HCL 0.5 MG ORAL TABLET 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 ROPINIROLE HCL 0.5 MG ORAL TABLET 244318 ROPINIR OLE HCL Inactive ROPINIROLE HCL 1 MG ORAL TABLET 1 tab po q hs ROPINIROLE HCL 1 MG ORAL TABLET 654643 ROPINIROLE HCL Inactive ROPINIROLE HCL 2 MG ORAL TABLET 1 po at hs 7 ROPINIROLE HCL 2 MG ORAL TABLET 393804 ROPINIROLE HCL Inactive MIRAPEX 0.125 MG ORAL TABLET 1 po nightly MIRAPEX 0.125 MG ORAL TABLET 685104 PRAMIPEXOLE DIHYDROCHLORIDE Inactive MIRAPEX 0.25 MG ORAL TABLET 1 tablet by mouth at night for r estless leg MIRAPEX 0.25 MG ORAL TABLET PRAMIPEXOLE D IHYDROCHLORIDE Inactive HYDROXYZINE HCL 25 MG ORAL TABLET 1 tab po at HS prn sleep 08/02 HYDROXYZINE HCL 25 MG ORAL TABLET 667854 HYDROXYZINE HC L Inactive DIFLUCAN 100 MG ORAL TABLET 1 tablet by mouth daily 21/08/28 DIFLUCAN 100 MG ORAL TABLET 550142 FLUCONAZOLE Inactive BACLOFEN 10 MG ORAL TABLET Take one tablet by mouth three times a day BACLOFEN 10 MG ORAL TABLET 969310 BACLOFEN Inact trent PREDNISONE 20 MG ORAL TABLET 1 tab twice daily for 3 d ay, then one daily for three days PREDNISONE 20 MG ORAL TABLET 301052 PREDNIS ONE Inactive UNISOM SLEEPMELTS 25 MG [...] 03/03/23 BACTRIM DS 800-160 MG ORAL TABLET 518258 TRIMETHOPRIM-SULFAMETHOXAZOLE Inactive ZITHROMAX 250 MG ORAL TABLET 2 po today, then 1 po q days 2-5 20 15/02/10 ZITHROMAX 250 MG ORAL TABLET 733361 AZITHROMYCIN Mayela ctive BACTRIM DS 800-160 MG [...] 20 19/03/05 DIFLUCAN 100 MG ORAL TABLET 837322 FLUCONAZOLE Inactive BACTRIM DS 800-160 MG ORAL TABLET 1 tab by mouth twice daily 201 05/10/28 BACTRIM DS 800-160 MG ORAL TABLET 19830105 TRIMETHOPRIM-SULFAMETHOXAZOLE Inactive AMOXICILLIN 500 MG ORAL CAPSULE 1 cap by mouth three times a day AMOXICILLIN 500 MG ORAL CAPSULE 430806 AMOXICILLIN Inactive ZITHROMAX 250 MG ORAL TABLET 2 po today, then 1 po q days 2-5 20 20/04/28 ZITHROMAX 250 MG ORAL TABLET 067220 AZITHROMYCIN [facility] ctive DIFLUCAN 100 MG ORAL TABLET 1 [...] 20 21/08/28 ZITHROMAX 250 MG ORAL TABLET 799179 AZITHROMYCIN [facility] ctive FLUCONAZOLE 100 MG ORAL TABLET 1 [...] LIVING WILL ON FILE DURABLE POWER OF [employer] FOR HE[employer] Vital Signs Date Name Value [...] 0.70 mg/dL 0.00-1.00 sodium, serum 140 mmol/L 772-572 1276/07/30 LDL cholesterol, serum 138 mg/dL 0-130 HDL [...] 5.0-8.5 Encounters Code Encounter Date Provider Facility CPT-10184 [id number] Vst-Est Level IV 08:56:46 C BRIDGET Sherman MD [facility] CPT-56341 52786-Xqp Vst-Est Level IV 10:36:10 C BRIDGET Sherman MD [facility] CPT-69194 [id number]-Hla Vst-Est Level IV 13:49:08 TOE PUNCHER Mendy Stovallord [facility] CPT-05200 23690-Cte Vst-Est Level IV 11:39:[address] Tesfaye Sherman MD [facility] CPT-01591 [id number] Vst-Est Level IV 14:08:03 C BRIDGET Sherman MD [facility] CPT-68615 Level 3 Est. Patient 18:06:36 CDT Tesfaye pearson MD [facility] CPT-32374 98030-Hyz Vst-Est Level IV 17:09:34 C BRIDGET Sherman MD [facility] CPT-45323 Level 3 Est. Patient 17:27:08 CDT León Bandar hernandez APRN [facility] CPT-60530 44912-Kfq Vst-Est Level IV 14:00:[address] Tesfaye Sherman MD [facility] CPT-54348 [id number] Vst-Est Level IV 19:27:[address] Tesfaye Sherman MD [facility] CPT-33937 55859-Vgx Vst-Est Level IV 10:41:41 C BRIDGET Sherman MD [facility] CPT-39465 55541-Dhm Vst-Est Level III 09:40:56 CDT Tesfaye Sherman MD [facility] CPT-15247 Level 4 Est. Patient 22:18:12 CDT Tesfaye pearson MD [facility] CPT-15084 Level 4 Est. Patient 14:44:33 TOE PUNCHER Tesfaye pearson MD [facility] CPT-62039 Level 4 Est. Patient 13:55:29 TOE PUNCHER Tesfaye pearson MD [facility] CPT-90314 Level 4 Est. Patient 17:07:34 TOE PUNCHER Tesfaye pearson MD [facility] CPT-85848 Level 4 Est. Patient 13:56:54 CDT Tesfaye pearson MD [facility] CPT-28460 Level 4 Est. Patient 13:24:25 CDT Chelsea sanz APRN [facility] CPT-49561 Level 4 Est. Patient 09:14:56 CDT Tesfaye pearson MD [facility]-87342 Level 4 Est. Patient 18:40:25 TOE PUNCHER Tesfaye pearson MD [facility]-91926 Level 4 Est. Patient 18:13:07 TOE PUNCHER Tesfaye pearson MD [facility]-66695 Level 3 Est. Patient 10:46:32 CDT Rj cotto DO [facility]-85867 Level 4 Est. Patient 20:19:25 CDT Tesfaye pearson MD [facility]-86441 Level 3 Est. Patient 09:07:31 CDT Tesfaye pearson MD [facility] CPT-87126 Level 4 Est. Patient 13:12:56 CDT Tesfaye pearson MD [facility]-31201 Level 4 Est. Patient 21:24:55 TOE PUNCHER Tesfaye pearson MD [facility] CPT-63179 Level 3 Est. Patient 13:45:04 TOE PUNCHER Tesfaye pearson MD [facility] CPT-61882 Level 4 Est. Patient 13:50:45 CDT Tesfaye pearson MD [facility] CPT-73786 Level 3 Est. Patient 10:16:10 CDT Tesfaye pearson MD [facility] CPT-18160 Level 3 Est. Patient 16:36:07 TOE PUNCHER Kayla jameson MD [facility]-39037 Level 4 Est. Patient 16:00:14 TOE PUNCHER Tesfaye pearson MD [facility]-40197 Level 4 Est. Patient 11:02:24 TOE PUNCHER Tesfaye pearson MD [facility] CPT-56589 Level 3 Est. Patient 20:21:43 TOE PUNCHER Kayla jameson MD [facility] CPT-44383 Level 3 Est. Patient 13:27:28 TOE PUNCHER Kayla jameson MD [facility] CPT-24582 Level 4 Est. Patient 15:57:17 TOE PUNCHER Tesfaye pearson MD [facility] CPT-49986 Level 3 New Patient 13:25:47 CDT Tesfaye kidd MD [facility] CPT-86755 Level 3 New Patient 17:22:21 CDT J John angel [facility] Procedures Code Procedure Name Date Entry Date Standard Desc ription CPT-00511 Venipuncture Draw Fee 10:04:55 CDT CPT-82652 Prv Med Est Pt 40-64yrs 09:01:58 CDT 03/09 CPT-G0439 Subsequent Annual Wellness Exam 11:25:51 CDT [id number]-[id number] ([id number] 2P) Patient Reason Influenza immu nization not administered 13:25:19 TOE PUNCHER CPT-66157 Bone Density - XRAY USE ONLY 15:21:33 CDT CPT-22664 Venipuncture Draw Fee 16:12:22 CDT CPT-G0439 Subsequent Annual Wellness Exam 18:06:36 CDT CPT-G0439 Subsequent Annual Wellness Exam 22:18:11 CDT CPT-56602 Bone Density - XRAY USE ONLY 11:43:58 CDT CPT-46861 Bone Density - XRAY USE ONLY 10:05:16 CDT CPT-52334 Prv Med New Pt 40-64 yrs 18:19:25 CDT 2016 CPT-56729 Foot, right, comp min 3V - XRAY USE ONLY 10:38:34 CDT CPT-G0439 Subsequent Annual Wellness Exam 13:55:04 CDT CPT-G0438 Initial Annual Wellness Exam 11:23:17 CD T CPT-J2930 Solu Medrol 125 mg (Methyl Prednisolone Sodium Succinate) 17:29:12 TOE PUNCHER CPT-27834 Abx/Therapy Injection 17:29:11 TOE PUNCHER CPT-J2930 Solu Medrol 125 mg (Methyl Prednisolone Sodium Succinate) 12:34:38 TOE PUNCHER CPT-J3420 Vitamin B12 1000mcg (Cyanocobalamin) 09:12:55 CDT CPT-J3420 Vitamin B12 1000mcg (Cyanocobalamin) 16:28:06 TOE PUNCHER CPT-96877 Venipuncture Draw Fee 08:39:53 CDT CPT-J3420 Vitamin B12 1000mcg (Cyanocobalamin) 08:46:22 CDT CPT-28030 Abx/Therapy Injection 08:46:22 CDT CPT-J3420 Vitamin B12 1000mcg (Cyanocobalamin) 08:41:26 CDT CPT-10315 Abx/Therapy Injection 08:41:26 CDT CPT-J3420 Vitamin B12 1000mcg (Cyanocobalamin) 08:57:15 CDT CPT-11621 Abx/Therapy Injection 08:57:15 CDT CPT-J3420 Vitamin B12 1000mcg (Cyanocobalamin) 10:59:03 CDT CPT-22214 Abx/Therapy Injection 10:59:03 CDT CPT-J3420 Vitamin B12 1000mcg (Cyanocobalamin) 15:05:39 CDT CPT-15103 Abx/Therapy Injection 15:05:39 CDT CPT-J3420 Vitamin B12 1000mcg (Cyanocobalamin) 13:50:45 CDT CPT-J3420 Vitamin B12 1000mcg (Cyanocobalamin) 08:48:55 CDT CPT-72931 Abx/Therapy Injection 08:48:55 CDT CPT-J3420 Vitamin B12 1000mcg (Cyanocobalamin) 09:14:54 CDT CPT-35138 Abx/Therapy Injection 09:14:54 CDT CPT-J3420 Vitamin B12 1000mcg (Cyanocobalamin) 09:06:06 CDT CPT-10562 Abx/Therapy Injection 09:06:06 CDT CPT-J3420 Vitamin B12 1000mcg (Cyanocobalamin) 09:49:14 CDT CPT-90500 Abx/Therapy Injection 09:49:14 CDT CPT-J3420 Vitamin B12 1000mcg (Cyanocobalamin) 09:10:30 TOE PUNCHER CPT-39843 Abx/Therapy Injection 09:10:30 TOE PUNCHER CPT-J3420 Vitamin B12 1000mcg (Cyanocobalamin) 09:11:07 TOE PUNCHER CPT-42034 Abx/Therapy Injection 09:11:07 TOE PUNCHER CPT-J3420 Vitamin B12 1000mcg (Cyanocobalamin) 09:57:03 TOE PUNCHER CPT-00134 Abx/Therapy Injection 09:57:03 TOE PUNCHER CPT-J3420 Vitamin B12 1000mcg (Cyanocobalamin) 09:23:21 TOE PUNCHER CPT-95181 Abx/Therapy Injection 09:23:21 TOE PUNCHER CPT-62623 Urine Dip (Floor Use Only) 20:21:44 TOE PUNCHER 201 02/12/11 CPT-08160 UA Dip Auto (Floor Use Only) 10:04:39 TOE PUNCHER 2 CPT-25903 Urine Dip (Floor Use Only) 13:27:28 TOE PUNCHER 201 02/12/01 CPT-60731 Bladder Scan 13:27:28 TOE PUNCHER CPT-88148 Abd single AP View 14:30:51 TOE PUNCHER CPT-OV Office Visit 10:15:43 CDT CPT-75876 Urine Dip (Floor Use Only) 17:22:21 CDT 201 02/09/02 CPT-04257 Bladder Scan 17:22:21 CDT
--- OUTSIDE RECORDS SUMMARY | 2020-05-05 11:57 | XMS REPORT | Clinical Summary ---
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 Tesfaye Sherman MD Long-term (current) drug use Yeast infection 112.9 Inactive Tesfaye Sherman MD Candidiasis of unspecified site Upper respiratory infection 465.9 Inactive Tesfaye Sherman MD Acute upper respiratory infections of un specified site Lower extremity edema, bilateral 782.3 Active 201 07/07/09 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 Peripheral neuropathy 356.9 Active [...] Body Mass Index 20.0-20.9 Adult Eldon Shah [facility] Dysuria ICD-788.1 Inactive Tesfaye Sherman MD 201 07/05/07 Yeast infection ICD-112.9 Inactive Tesfaye lamb MD Upper respiratory infection ICD-465.9 Inactive Tesfaye Sherman MD Overweight (BMI 25-29.9) Inactive Adriana Arredondo [facility] Medication List Medication Instructions Start Date Stop Date Generic Name NDC Status Provider Patient Instruction FUROSEMIDE 20 MG ORAL TABLET take 1/2 to 1 tablet by mouth d aily prn swelling FUROSEMIDE [id number] Active Tesfaye Sherman MD Active FENOFIBRATE 145 MG ORAL TABLET Take 1 tablet by mouth once daily 20 23/12/19 FENOFIBRATE 14298791439 Active Tesfaye Sherman MD Active PRAMIPEXOLE DIHYDROCHLORIDE 0.75 MG ORAL TABLET take 1 tab po qhs for restless leg syndrome. PRAMIPEXOLE DIHYDROCHLORIDE 97674716109 Acti ve Tesfaye Sherman MD Active DIFLUCAN 100 MG ORAL TABLET 1 tablet by mouth daily 20 23/12/05 FLUCONAZOLE 72947743870 No Longer Active Tesfaye Sherman MD Acti ve [facility] NIACIN FLUSH FREE 400-100 MG ORAL CAPSULE 1 daily NIACIN-INOSITOL 81341904451 No Longer Active Tesfaye Sherman MD A ctive FISH OIL 1000 MG ORAL CAPSULE DELAYED RELEASE 1 pill b y mouth daily for cholesterol OMEGA-3 FATTY ACIDS 27563691221 No Longe r Active Tesfaye Sherman MD Active UNISOM SLEEPMELTS 25 MG ORAL TABLET DISINTEGRATING 1.5 po q hs DIPHENHYDRAMINE HCL (SLEEP) 68491385384 No Longer Active Venkata Sherman MD Active PREDNISONE 20 MG ORAL TABLET 1 tab twice daily for 3 d ay, then one daily for three days PREDNISONE 30107263597 No Longer Active Tesfaye Sherman MD Active BACLOFEN 10 MG ORAL TABLET Take one tablet by mouth three times a day BACLOFEN 72903208522 No Longer Active Tesfaye Sherman MD Active LIDOCAINE 4 % EXTERNAL CREAM Apply to back prn pain LIDOCAINE 44186927209 Active Tesfaye Sherman MD Active TIZANIDINE HCL 2 MG ORAL TABLET 2 Mg in the AM and 6mg q hs 07/05 TIZANIDINE HCL 19991128188 Active Tesfaye Sherman MD Active HYDROXYZINE HCL 25 MG TABS TAKE 1 TABLET BY MOUTH AT B EDTIME NEEDED FOR SLEEP HYDROXYZINE HCL 77646074066 Active JOSHUA Lindsay Active FLUCONAZOLE 100 MG ORAL TABLET 1 by mouth daily for yeast infect ion FLUCONAZOLE 40951693252 No Longer Active Laurence Dominguez Acti ve ZITHROMAX 250 MG ORAL TABLET 2 po today, then 1 po q days 2-5 20 21/08/28 AZITHROMYCIN 38984966851 No Longer Active Tesfaye Sherman MD Active DIFLUCAN 100 MG ORAL TABLET 1 tablet by mouth daily 20 21/08/28 FLUCONAZOLE 03874336451 No Longer Active Tesfaye Sherman MD Acti ve HYDROXYZINE HCL 25 MG ORAL TABLET 1 tab po at HS prn sleep 08/02 HYDROXYZINE HCL 64272024791 No Longer Active Tesfaye Sherman MD Active MIRAPEX 0.5 MG ORAL TABLET 1 tablet at night for restless leg. 2018 PRAMIPEXOLE DIHYDROCHLORIDE 99801659933 Active Laurenceyohana Lopezida Active MIRAPEX 0.25 MG ORAL TABLET 1 tablet by mouth at night for r estless leg PRAMIPEXOLE DIHYDROCHLORIDE 90352911085 No Longer Act trent Laurence Dominguez Active MIRAPEX 0.125 MG ORAL TABLET 1 po nightly PRAMIPEXOLE DIHYDROCHLORIDE 00358751390 No Longer Active Laurence Dominguez Active ROPINIROLE HCL 2 MG ORAL TABLET 1 po at hs ROPI NIROLE HCL 79595805541 No Longer Active Laurenceyohana Lopezida Active ROPINIROLE HCL 1 MG ORAL TABLET 1 tab po q hs ROPINIROLE HCL 44053259206 No Longer Active Laurenceyohana Dominguez Active ROPINIROLE HCL 0.5 MG ORAL TABLET 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 ROPINIROLE HCL 69701662457 No Longer Active MARCUS Panchal Active ROPINIROLE HCL 0.25 MG ORAL TABLET 1 TAB PO Q HS 05/31 ROPINIROLE HCL 77739609155 No Longer Active Tesfaye Sherman MD Ac tive PREDNISONE 20 MG ORAL TABLET 1 tab twice daily for 3 d ay, then one daily for three days PREDNISONE 10100859784 No Longer Active Tesfaye Sherman MD Active AMITRIPTYLINE HCL 50 MG ORAL TABLET 1 po q hs for sleep AMITRIPTYLINE HCL 16592598313 No Longer Active Tesfaye Sherman MD Active AMITRIPTYLINE HCL 10 MG ORAL TABLET 1 tablet nightly by mout h for neuropathy AMITRIPTYLINE HCL 81350919836 No Longer Active MARCUS Stapleton Active DIFLUCAN 100 MG ORAL TABLET 1 tablet by mouth daily 21/03/11 FLUCONAZOLE 37462752779 No Longer Active Tesfaye Sherman MD Acti ve BACTRIM DS 800-160 MG ORAL TABLET 1 tab by mouth twice daily 201 07/08/06 TRIMETHOPRIM-SULFAMETHOXAZOLE 10688606103 No Longer Active Umer Sherman MD Active CLARITIN 10 MG ORAL TABLET Take one by mouth daily LORATADINE 48645062748 Active Tesfaye Sherman MD Active SUDAFED 12 HOUR 120 MG ORAL TABLET EXTENDED RELEASE 12 HOUR 1 pill twice daily if needed for congestion PSEUDOEPHEDRINE HCL 583894810 13 No Longer Active Tesfaye Sherman MD Active GABAPENTIN 300 MG ORAL CAPSULE 1 po daily GABAP ENTIN 27698901275 No Longer Active Tesfaye Sherman MD Active HYDROCHLOROTHIAZIDE 12.5 MG ORAL CAPSULE 1 pill by mough daily 2 HYDROCHLOROTHIAZIDE 53699186228 No Longer Active León Mariee APRN Active VENLAFAXINE HCL 75 MG ORAL TABLET 1 am 1/2 at noon 201 07/07/09 VENLAFAXINE HCL 07037071601 No Longer Active León Mariee APRN Act trent DIFLUCAN 100 MG ORAL TABLET 1 tablet by mouth daily 19/02/09 FLUCONAZOLE 07186122002 No Longer Active León Kodi EXPANDER MACHINE OPERATOR Active DIFLUCAN 100 MG ORAL TABLET 1 tablet by mouth daily 19/02/09 FLUCONAZOLE 01294732546 No Longer Active Leónkash Mariee APRN Active OXYCODONE-ACETAMINOPHEN 5-325 MG ORAL TABLET Take one tablet by mouth every 6 hours 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 Use sparingly OXYCODONE-ACETAMINOPHEN 92859318147 Active Tesfaye villar MD Active CLONAZEPAM 0.5 MG ORAL TABLET Take 1/2 qam, and 1/2 qpm CLONAZEPAM 14370585297 Active Tesfaye Sherman MD Active PRELIEF 340 (65-50) MG (CA-P) ORAL TABLET CALCIUM GLYCEROPHOSPHATE 48615576255 No Longer Active Tesfaye Sherman MD Active SUDAFED 24 HOUR 240 MG ORAL TABLET EXTENDED RELEASE 24 HOUR 1 tab po daily PSEUDOEPHEDRINE HCL 61818593683 No Longer Active Raul Sherman MD Active RED YEAST RICE 600 MG ORAL CAPSULE 1 pill by mouth daily RED YEAST RICE EXTRACT 76079571608 No Longer Active Tesfaye Sherman MD Active REPHRESH PRO-B ORAL CAPSULE 1 tablet daily LACT OBACILLUS 68790630280 No Longer Active Tesfaye Sherman MD Active ABILIFY 2 MG ORAL TABLET 1 by mouth daily. MARIA ELENA PIPRAZOLE 34622136157 Active Tesfaye Sherman MD Active CYMBALTA 60 MG ORAL CAPSULE DELAYED RELEASE PARTICLES 1 cap by mouth daily for pain DULOXETINE HCL 50162055918 Active MARCUS Lindsay Active DIFLUCAN 100 MG ORAL TABLET 1 tablet by mouth daily 20 20/06/06 FLUCONAZOLE 34625192791 No Longer Active Tesfaye Sherman MD Acti ve PREDNISONE 20 MG ORAL TABLET 1 tablet by mouth twice d aily for 3 days, then 1 tablet daily for 3 days PREDNISONE 52746109913 No L onger Active Tesfaye Sherman MD Active BACTRIM DS 800-160 MG ORAL TABLET 1 tab by mouth twice daily 201 06/09/02 TRIMETHOPRIM-SULFAMETHOXAZOLE 21864999792 No Longer Active Katarina masterskatarina Lopezduyen Active DIFLUCAN 100 MG ORAL TABLET 1 tablet by mouth daily 20 20/05/01 FLUCONAZOLE 49172294751 No Longer Active Tesfaye Sherman MD Acti ve ZITHROMAX 250 MG ORAL TABLET 2 po today, then 1 po q days 2-5 20 20/04/28 AZITHROMYCIN 07580315337 No Longer Active Tesfaye Sherman MD Active MECLIZINE HCL 25 MG ORAL TABLET one tab po qday prn dizziness 20 17/09/06 MECLIZINE HCL 25604011805 No Longer Active Tesfaye Sherman MD Active PROAIR HFA 108 (90 BASE) MCG/ACT INHALATION AEROSOL SO LUTION 1 puff every 6 hours as needed ALBUTEROL SULFATE 85397368912 No Long er Active Tesfaye Sherman MD Active PREDNISONE 20 MG ORAL TABLET 1 tab twice daily for 3 d ay, then one daily for three days PREDNISONE 56689222232 No Longer Active Tesfaye Sherman MD Active MECLIZINE HCL 25 MG ORAL TABLET one 4 times a day as needed for dizziness MECLIZINE HCL 64230562845 Active Tesfaye Sherman MD Active AMOXICILLIN 500 MG ORAL CAPSULE 1 cap by mouth three times a day AMOXICILLIN 38345902418 No Longer Active Laurence Dominguez Acti ve DIFLUCAN 100 MG ORAL TABLET 1 tablet by mouth daily 20 19/08/26 FLUCONAZOLE 33349302475 No Longer Active Tesfaye Sherman MD Acti ve BACTRIM DS 800-160 MG ORAL TABLET 1 tab by mouth twice daily 201 05/10/28 TRIMETHOPRIM-SULFAMETHOXAZOLE 81270465545 No Longer Active Katarina Dominguez Active FOSAMAX 70 MG ORAL TABLET 1 po qweek. Take 30min prio r to first food/drink. Avoid lying down x 1 hour. ALENDRONATE SODIUM 49304754 144 No Longer Active Laurence Dominguez Active CYMBALTA 60 MG ORAL CAPSULE DELAYED RELEASE PARTICLES Take 1 tablet by mouth daily DULOXETINE HCL 55769645770 No Longer Active Edith Burch MD Active CYMBALTA 30 MG ORAL CAPSULE DELAYED RELEASE PARTICLES 1 cap by mouth daily with 60mg DULOXETINE HCL 49304290869 No Longer Active Jordan Burch MD Active DIFLUCAN 100 MG ORAL TABLET 1 tablet by mouth daily 20 19/03/05 FLUCONAZOLE 40823922800 No Longer Active Tesfaye Sherman MD Acti ve BACTRIM DS 800-160 MG ORAL TABLET 1 tab by mouth twice daily 201 05/06/28 TRIMETHOPRIM-SULFAMETHOXAZOLE 89927658972 No Longer Active Umer Sherman MD Active BACTRIM DS 800-160 MG ORAL TABLET 1 tab by mouth twice daily 201 05/04/15 TRIMETHOPRIM-SULFAMETHOXAZOLE 24379121028 No Longer Active Umer Sherman MD Active DIFLUCAN 150 MG ORAL TABLET 1 tablet by mouth daily 18/09/20 FLUCONAZOLE 26855897737 No Longer Active Tesfaye Sherman MD Acti ve BACTRIM DS 800-160 MG ORAL TABLET 1 tab by mouth twice daily 201 04/13/17 TRIMETHOPRIM-SULFAMETHOXAZOLE 96022246109 No Longer Active D patricia Sherman MD Active CEFTIN 250 MG ORAL TABLET 1 tablet twice daily x 7 days CEFUROXIME AXETIL 75177687265 No Longer Active Tesfaye Sherman MD Active DIFLUCAN 100 MG ORAL TABLET 1 tablet by mouth every other da y for 2 doses FLUCONAZOLE 51928825339 No Longer Active Tesfaye barron MD Active DIFLUCAN 100 MG ORAL TABLET 1 tablet by mouth daily X 3 DAYS 201 04/09/01 FLUCONAZOLE 94325711176 No Longer Active Rj Moss DO Ac tive MIRTAZAPINE 15 MG ORAL TABLET 1/2 tab by mouth at bedtime. 03/13 MIRTAZAPINE 69212007503 No Longer Active Tesfaye Sherman MD Active BACTRIM DS 800-160 MG ORAL TABLET 1 tab by mouth twice daily 201 04/09/01 TRIMETHOPRIM-SULFAMETHOXAZOLE 97063280879 No Longer Active D patricia Sherman MD Active PRAMIPEXOLE DIHYDROCHLORIDE 0.125 MG ORAL TABLET take 1 tablet po qhs for restless leg syndrome. PRAMIPEXOLE DIHYDROCHLORI DE 91773564080 No Longer Active Tesfaye Sherman MD Active MAGNESIUM 400 MG ORAL TABLET 1 tab po daily MAGNE SIUM 15114685316 Active Chelsea Cardenas APRN Active CETIRIZINE HCL 5 MG ORAL TABLET Take 1 tablet by mouth daily CETIRIZINE HCL 56410371572 No Longer Active Chelsea Cardenas APRN Activ e TRIMETHOPRIM 100 MG ORAL TABLET 1/2 qd TRIM ETHOPRIM 11883827723 No Longer Active Chelsea Cardenas APRN Active BACTRIM DS 800-160 MG ORAL TABLET 1 tab by mouth twice daily 201 04/04/11 TRIMETHOPRIM-SULFAMETHOXAZOLE 38293049448 No Longer Active D avid M Wilmer MD Active BACTRIM DS 800-160 MG ORAL TABLET 1 tab by mouth twice daily X 10 DAYS TRIMETHOPRIM-SULFAMETHOXAZOLE 82434568471 No Longer Active Tesfaye Sherman MD Active AMOXICILLIN 500 MG ORAL CAPSULE 1 cap by mouth three times a day AMOXICILLIN 17031073457 No Longer Active Adriana Arredondo, [facility] A ctive B-12 1000 MCG ORAL LOZENGE 1 tab po daily CYANO COBALAMIN 79872285612 Active Tesfaye Sherman MD Active VITAMIN D3 2000 UNIT ORAL TABLET 1 daily, for vitamin D deficien cy CHOLECALCIFEROL 48406869644 No Longer Active Tesfaye Sherman MD Active ZITHROMAX 250 MG ORAL TABLET 2 po today, then 1 po q days 2-5 20 15/02/10 AZITHROMYCIN 28045193332 No Longer Active Tesfaye Sherman MD Active BACTRIM DS 800-160 MG ORAL TABLET 1 tab by mouth twice daily 201 03/03/23 TRIMETHOPRIM-SULFAMETHOXAZOLE 30584981546 No Longer Active Umer Sherman MD Active DIFLUCAN 150 MG ORAL TABLET 1 qd FLUCONAZOL E 68473055004 No Longer Active Kayla Cooper MD Active FLUTICASONE PROPIONATE 50 MCG/ACT NASAL SUSPENSION 1 spray each nostril twice daily FLUTICASONE PROPIONATE 97642365551 Active Umer Sherman MD Active LOVASTATIN 20 MG ORAL TABLET Take 1 tablet by mouth daily LOVASTATIN 64659255069 No Longer Active Tesfaye Sherman MD Acti ve MELOXICAM 7.5 MG ORAL TABLET 1 tablet by mouth daily 2 MELOXICAM 56092690787 No Longer Active Tesfaye Sherman MD Acti ve GABAPENTIN 300 MG ORAL CAPSULE Take two tablets by mouth every e vening GABAPENTIN 66317678899 No Longer Active Edith Burch MD A ctive GABAPENTIN 300 MG ORAL CAPSULE Take two tablets by mouth every e vening GABAPENTIN 300 MG ORAL CAPSULE 044511 GABAPENTIN I nactive MELOXICAM 7.5 MG ORAL TABLET 1 tablet by mouth daily 2 MELOXICAM 7.5 MG ORAL TABLET 721092 MELOXICAM Inactive LOVASTATIN 20 MG ORAL TABLET Take 1 tablet by mouth daily LOVASTATIN 20 MG ORAL TABLET 428890 LOVASTATIN Inactive DIFLUCAN 150 MG ORAL TABLET 1 qd DIFLUCAN 150 MG ORAL TABLET 321471 FLUCONAZOLE Inactive VITAMIN D3 2000 UNIT ORAL TABLET 1 daily, for vitamin D deficien cy VITAMIN D3 2000 UNIT ORAL TABLET CHOLECALCIFEROL Inactive AMOXICILLIN 500 MG ORAL CAPSULE 1 cap by mouth three times a day AMOXICILLIN 500 MG ORAL CAPSULE 766122 AMOXICILLIN Inactive BACTRIM DS 800-160 MG ORAL TABLET 1 tab by mouth twice daily X 10 DAYS BACTRIM DS 800-160 MG ORAL TABLET 219092 TRIMETHOPRIM-SULFAMETHOXAZOLE Inactive TRIMETHOPRIM 100 MG ORAL TABLET 1/2 qd 7 TRIMETHOPRIM 100 MG ORAL TABLET 181100 TRIMETHOPRIM Inactive CETIRIZINE HCL 5 MG ORAL TABLET Take 1 tablet by mouth daily CETIRIZINE HCL 5 MG ORAL TABLET 7814578 CETIRIZINE HCL Inactive PRAMIPEXOLE DIHYDROCHLORIDE 0.125 MG ORAL TABLET take 1 tablet po qhs for restless leg syndrome. PRAMIPEXOLE DIHYD ROCHLORIDE 0.125 MG ORAL TABLET 513284 PRAMIPEXOLE DIHYDROCHLORIDE Inactive MIRTAZAPINE 15 MG ORAL TABLET 1/2 tab by mouth at bedtime. 03/13 MIRTAZAPINE 15 MG ORAL TABLET 048905 MIRTAZAPINE In active DIFLUCAN 100 MG ORAL TABLET 1 tablet by mouth daily X 3 DAYS 201 04/09/01 DIFLUCAN 100 MG ORAL TABLET 879120 FLUCONAZOLE Inac tive DIFLUCAN 100 MG ORAL TABLET 1 tablet by mouth every other da y for 2 doses DIFLUCAN 100 MG ORAL TABLET 293066 FLUCONAZOLE Inactive CEFTIN 250 MG ORAL TABLET 1 tablet twice daily x 7 days CEFTIN 250 MG ORAL TABLET CEFUROXIME AXETIL Inactive CYMBALTA 30 MG ORAL CAPSULE DELAYED RELEASE PARTICLES 1 cap by mouth daily with 60mg CYMBALTA 30 MG ORAL CAPSULE DELAYED RELEASE PARTICLES 200482 DULOXETINE HCL Inactive CYMBALTA 60 MG ORAL CAPSULE DELAYED RELEASE PARTICLES Take 1 tablet by mouth daily CYMBALTA 60 MG ORAL CAPSULE DELAYED RELEA SE PARTICLES 070567 DULOXETINE HCL Inactive FOSAMAX 70 MG ORAL TABLET 1 po qweek. Take 30min prio r to first food/drink. Avoid lying down x 1 hour. FOSAMAX 70 MG ORAL TA BLET 823786 ALENDRONATE SODIUM Inactive DIFLUCAN 100 MG ORAL TABLET 1 tablet by mouth daily 19/08/26 DIFLUCAN 100 MG ORAL TABLET 296696 FLUCONAZOLE Inactive PREDNISONE 20 MG ORAL TABLET 1 tab twice daily for 3 d ay, then one daily for three days PREDNISONE 20 MG ORAL TABLET 427088 PREDNIS ONE Inactive PROAIR HFA 108 (90 BASE) MCG/ACT INHALATION AEROSOL SO LUTION 1 puff every 6 hours as needed PROAIR HFA 108 (90 B ASE) MCG/ACT INHALATION AEROSOL SOLUTION ALBUTEROL SULFATE Inactive MECLIZINE HCL 25 MG ORAL TABLET one tab po qday prn dizziness 20 17/09/06 MECLIZINE HCL 25 MG ORAL TABLET 338768 MECLIZINE HCL Inactive PREDNISONE 20 MG ORAL TABLET 1 tablet by mouth twice d aily for 3 days, then 1 tablet daily for 3 days PREDNISONE 20 MG ORAL TA BLET 232582 PREDNISONE Inactive DIFLUCAN 100 MG ORAL TABLET 1 tablet by mouth daily 20 20/06/06 DIFLUCAN 100 MG ORAL TABLET 050909 FLUCONAZOLE Inactive REPHRESH PRO-B ORAL CAPSULE 1 tablet daily REPHRESH PRO-B ORAL CAPSULE LACTOBACILLUS Inactive RED YEAST RICE 600 MG ORAL CAPSULE 1 pill by mouth daily RED YEAST RICE 600 MG ORAL CAPSULE 230191 RED YEAST RICE EXTRACT In active SUDAFED [...] daily 19/02/09 DIFLUCAN 100 MG ORAL TABLET 479210 FLUCONAZOLE Inactive DIFLUCAN 100 MG ORAL TABLET 1 tablet by mouth daily 19/02/09 DIFLUCAN 100 MG ORAL TABLET 553200 FLUCONAZOLE Inactive VENLAFAXINE HCL 75 MG ORAL TABLET 1 am 1/2 at noon 201 07/07/09 VENLAFAXINE HCL 75 MG ORAL TABLET 757004 VENLAFAXINE HCL Inacti ve GABAPENTIN 300 MG ORAL CAPSULE 1 po daily GABAPENTIN 300 MG ORAL CAPSULE 754122 GABAPENTIN Inactive SUDAFED 12 HOUR 120 MG ORAL TABLET EXTENDED RELEASE 12 HOUR 1 pill twice daily if needed for congestion SUDAFED 12 HOUR 120 MG ORAL TABLET EXTENDED RELEASE 12 HOUR PSEUDOEPHEDRINE HCL Inactive AMITRIPTYLINE HCL 10 MG ORAL TABLET 1 tablet nightly by mout h for neuropathy AMITRIPTYLINE HCL 10 MG ORAL TABLET 834561 AMITRIPTYLINE HCL Inactive AMITRIPTYLINE HCL 50 MG ORAL TABLET 1 po q hs for sleep AMITRIPTYLINE HCL 50 MG ORAL TABLET 726968 AMITRIPTYLINE HCL Inac tive PREDNISONE 20 MG ORAL TABLET 1 tab twice daily for 3 d ay, then one daily for three days PREDNISONE 20 MG ORAL TABLET 576130 PREDNIS ONE Inactive ROPINIROLE HCL 0.25 MG ORAL TABLET 1 TAB PO Q HS 05/31 ROPINIROLE HCL 0.25 MG ORAL TABLET 842597 ROPINIROLE HCL Inact trent ROPINIROLE HCL 0.5 MG ORAL TABLET 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 ROPINIROLE HCL 0.5 MG ORAL TABLET 675426 ROPINIR OLE HCL Inactive ROPINIROLE HCL 1 MG ORAL TABLET 1 tab po q hs ROPINIROLE HCL 1 MG ORAL TABLET 397665 ROPINIROLE HCL Inactive ROPINIROLE HCL 2 MG ORAL TABLET 1 po at hs 7 ROPINIROLE HCL 2 MG ORAL TABLET 432212 ROPINIROLE HCL Inactive MIRAPEX 0.125 MG ORAL TABLET 1 po nightly MIRAPEX 0.125 MG ORAL TABLET 446860 PRAMIPEXOLE DIHYDROCHLORIDE Inactive MIRAPEX 0.25 MG ORAL TABLET 1 tablet by mouth at night for r estless leg MIRAPEX 0.25 MG ORAL TABLET PRAMIPEXOLE D IHYDROCHLORIDE Inactive HYDROXYZINE HCL 25 MG ORAL TABLET 1 tab po at HS prn sleep 08/02 HYDROXYZINE HCL 25 MG ORAL TABLET 127931 HYDROXYZINE HC L Inactive DIFLUCAN 100 MG ORAL TABLET 1 tablet by mouth daily 21/08/28 DIFLUCAN 100 MG ORAL TABLET 645106 FLUCONAZOLE Inactive BACLOFEN 10 MG ORAL TABLET Take one tablet by mouth three times a day BACLOFEN 10 MG ORAL TABLET 058784 BACLOFEN Inact trent PREDNISONE 20 MG ORAL TABLET 1 tab twice daily for 3 d ay, then one daily for three days PREDNISONE 20 MG ORAL TABLET 593867 PREDNIS ONE Inactive UNISOM SLEEPMELTS 25 MG [...] 03/03/23 BACTRIM DS 800-160 MG ORAL TABLET 809128 TRIMETHOPRIM-SULFAMETHOXAZOLE Inactive ZITHROMAX 250 MG ORAL TABLET 2 po today, then 1 po q days 2-5 20 15/02/10 ZITHROMAX 250 MG ORAL TABLET 169312 AZITHROMYCIN [place] ctive BACTRIM DS 800-160 MG ORAL TABLET [...] 20 19/03/05 DIFLUCAN 100 MG ORAL TABLET 747937 FLUCONAZOLE Inactive BACTRIM DS 800-160 MG ORAL TABLET 1 tab by mouth twice daily 201 05/10/28 BACTRIM DS 800-160 MG ORAL TABLET 19830105 TRIMETHOPRIM-SULFAMETHOXAZOLE Inactive AMOXICILLIN 500 MG ORAL CAPSULE 1 cap by mouth three times a day AMOXICILLIN 500 MG ORAL CAPSULE 020678 AMOXICILLIN Inactive ZITHROMAX 250 MG ORAL TABLET 2 po today, then 1 po q days 2-5 20 20/04/28 ZITHROMAX 250 MG ORAL TABLET 107485 AZITHROMYCIN [place] ctive DIFLUCAN 100 MG ORAL [...] 20 21/08/28 ZITHROMAX 250 MG ORAL TABLET 737401 AZITHROMYCIN [place] ctive FLUCONAZOLE 100 MG ORAL TABLET 1 [...] LIVING WILL ON FILE DURABLE 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 CPT-21695 [id number] Vst-Est Level IV 10:36:10 C BRIDGET Sherman MD [facility] CPT-52585 [id number] Vst-Est Level IV 13:49:08 AUTO COLLISION 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 Mendy Stovallord [facility] CPT-86603 [id number] Vst-Est Level IV 11:39:[address] Tesfaye Sherman MD [facility] CPT-15783 [id number] Vst-Est Level IV 14:08:03 C BRIDGET Sherman MD [facility] CPT-24790 Level 3 Est. Patient 18:06:36 CDT Tesfaye pearson MD [facility] CPT-59247 [id number] Vst-Est Level IV 17:09:34 C BRIDGET Sherman MD [facility] CPT-21039 Level 3 Est. Patient 17:27:08 CDT León Bandar hernandez APRN [facility] CPT-29520 [id number] Vst-Est Level IV 14:00:[address] Tesfaye Sherman MD [facility] CPT-13208 [id number] Vst-Est Level IV 19:27:[address] Tesfaye Sherman MD [facility] CPT-14723 [id number] Vst-Est Level IV 10:41:41 C BRIDGET Sherman MD [facility] CPT-19016 [id number] Vst-Est Level III 09:40:56 CDT Tesfaye Sherman MD [facility] CPT-16638 Level 4 Est. Patient 22:18:12 CDT Tesfaye pearson MD [facility] CPT-35533 Level 4 Est. Patient 14:44:33 AUTO COLLISION 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 Tesfaye pearson MD [facility] CPT-91521 Level 4 Est. Patient 13:55:29 AUTO COLLISION 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 Tesfaye pearson MD [facility] CPT-15039 Level 4 Est. Patient 17:07:34 AUTO COLLISION 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 Tesfaye pearson MD [facility] CPT-22712 Level 4 Est. Patient 13:56:54 CDT Tesfaye pearson MD [facility] CPT-42870 Level 4 Est. Patient 13:24:25 CDT Chelsea sanz APRN [facility] CPT-67991 Level 4 Est. Patient 09:14:56 CDT Tesfaye pearson MD [facility]-17089 Level 4 Est. Patient 18:40:25 AUTO COLLISION 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 Tesfaye pearson MD [facility]-72869 Level 4 Est. Patient 18:13:07 AUTO COLLISION 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 Tesfaye pearson MD [facility]-40984 Level 3 Est. Patient 10:46:32 CDT Rj cotto DO [facility]-49929 Level 4 Est. Patient 20:19:25 CDT Tesfaye pearson MD [facility]-33859 Level 3 Est. Patient 09:07:31 CDT Tesfaye pearson MD [facility] CPT-60754 Level 4 Est. Patient 13:12:56 CDT Tesfaye pearson MD [facility]-11485 Level 4 Est. Patient 21:24:55 AUTO COLLISION 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 Tesfaye pearson MD [facility] CPT-98900 Level 3 Est. Patient 13:45:04 AUTO COLLISION 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 Tesfaye pearson MD [facility] CPT-09058 Level 4 Est. Patient 13:50:45 CDT Tesfaye pearson MD [facility] CPT-85592 Level 3 Est. Patient 10:16:10 CDT Tesfaye pearson MD [facility] CPT-30572 Level 3 Est. Patient 16:36:07 AUTO COLLISION 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 Kayla jameson MD [facility]-33153 Level 4 Est. Patient 16:00:14 AUTO COLLISION 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 Tesfaye pearson MD [facility]-91000 Level 4 Est. Patient 11:02:24 AUTO COLLISION 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 Tesfaye pearson MD [facility] CPT-94361 Level 3 Est. Patient 20:21:43 AUTO COLLISION 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 Kayla jameson MD [facility] CPT-65761 Level 3 Est. Patient 13:27:28 AUTO COLLISION 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 Kayla jameson MD [facility] CPT-16000 Level 4 Est. Patient 15:57:17 AUTO COLLISION 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 [facility] [facility] CPT-80975 Level 3 New Patient 13:25:47 CDT Tesfaye kidd MD [facility] CPT-01184 Level 3 New Patient 17:22:21 CDT J John angel MD [facility] Procedures Code Procedure Name Date Entry Date Standard Desc ription CPT-22735 Prv Med Est Pt 40-64yrs 09:01:58 CDT 03/09 CPT-G0439 Subsequent Annual Wellness Exam 11:25:51 CDT CPT-AC3403S (4274F 2P) Patient Reason Influenza immu nization not administered 13:25:19 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 CPT-56281 Bone Density - XRAY USE ONLY 15:21:33 CDT CPT-39187 Venipuncture Draw Fee 16:12:22 CDT CPT-G0439 Subsequent Annual Wellness Exam 18:06:36 CDT CPT-G0439 Subsequent Annual Wellness Exam 22:18:11 CDT CPT-30319 Bone Density - XRAY USE ONLY 11:43:58 CDT CPT-97430 Bone Density - XRAY USE ONLY 10:05:16 CDT CPT-87428 Prv Med New Pt 40-64 yrs 18:19:25 CDT 2016 CPT-60032 Foot, right, comp min 3V - XRAY USE ONLY 10:38:34 CDT CPT-G0439 Subsequent Annual Wellness Exam 13:55:04 CDT CPT-G0438 Initial Annual Wellness Exam 11:23:17 CD T CPT-J2930 Solu Medrol 125 mg (Methyl Prednisolone Sodium Succinate) 17:29:12 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 CPT-77195 Abx/Therapy Injection 17:29:11 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 CPT-J2930 Solu Medrol 125 mg (Methyl Prednisolone Sodium Succinate) 12:34:38 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 CPT-J3420 Vitamin B12 1000mcg (Cyanocobalamin) 09:12:55 CDT CPT-J3420 Vitamin B12 1000mcg (Cyanocobalamin) 16:28:06 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 CPT-07934 Venipuncture Draw Fee 08:39:53 CDT CPT-J3420 Vitamin B12 1000mcg (Cyanocobalamin) 08:46:22 CDT CPT-62056 Abx/Therapy Injection 08:46:22 CDT CPT-J3420 Vitamin B12 1000mcg (Cyanocobalamin) 08:41:26 CDT CPT-95742 Abx/Therapy Injection 08:41:26 CDT CPT-J3420 Vitamin B12 1000mcg (Cyanocobalamin) 08:57:15 CDT CPT-49193 Abx/Therapy Injection 08:57:15 CDT CPT-J3420 Vitamin B12 1000mcg (Cyanocobalamin) 10:59:03 CDT CPT-78461 Abx/Therapy Injection 10:59:03 CDT CPT-J3420 Vitamin B12 1000mcg (Cyanocobalamin) 15:05:39 CDT CPT-83370 Abx/Therapy Injection 15:05:39 CDT CPT-J3420 Vitamin B12 1000mcg (Cyanocobalamin) 13:50:45 CDT CPT-J3420 Vitamin B12 1000mcg (Cyanocobalamin) 08:48:55 CDT CPT-15575 Abx/Therapy Injection 08:48:55 CDT CPT-J3420 Vitamin B12 1000mcg (Cyanocobalamin) 09:14:54 CDT CPT-67669 Abx/Therapy Injection 09:14:54 CDT CPT-J3420 Vitamin B12 1000mcg (Cyanocobalamin) 09:06:06 CDT CPT-96977 Abx/Therapy Injection 09:06:06 CDT CPT-J3420 Vitamin B12 1000mcg (Cyanocobalamin) 09:49:14 CDT CPT-93737 Abx/Therapy Injection 09:49:14 CDT CPT-J3420 Vitamin B12 1000mcg (Cyanocobalamin) 09:10:30 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 CPT-74011 Abx/Therapy Injection 09:10:30 [employer]O 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 CPT-J3420 Vitamin B12 1000mcg (Cyanocobalamin) 09:11:07 [employer]O 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 CPT-88622 Abx/Therapy Injection 09:11:07 [employer]O [employer] 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 CPT-J3420 Vitamin B12 1000mcg (Cyanocobalamin) 09:57:03 [employer]O 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 CPT-67380 Abx/Therapy Injection 09:57:03 AUTO 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 CPT-J3420 Vitamin B12 1000mcg (Cyanocobalamin) 09:23:21 [employer]O 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 CPT-20016 Abx/Therapy Injection 09:23:21 [employer]O 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 CPT-96338 Urine Dip (Floor Use Only) 20:21:44 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 201 02/12/11 CPT-56113 UA Dip Auto (Floor Use Only) 10:04:39 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 2 CPT-40736 Urine Dip (Floor Use Only) 13:27:28 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 201 02/12/01 CPT-52375 Bladder Scan 13:27:28 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 CPT-99288 Abd single AP View 14:30:51 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 CPT-OV Office Visit 10:15:43 CDT CPT-39344 Urine Dip (Floor Use Only) 17:22:21 CDT 201 02/09/02 CPT-88306 Bladder Scan 17:22:21 CDT
--- OUTSIDE RECORDS SUMMARY | 2020-05-05 11:57 | XMS REPORT | Clinical Summary ---
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.6 Active Tesfaye Sherman MD Long-term (current) drug use Yeast infection 112.9 Inactive Tesfaye Sherman MD Candidiasis of unspecified site Upper respiratory infection 465.9 Inactive Tesfaye Sherman MD Acute upper respiratory infections of un specified site Lower extremity edema, bilateral 782.3 Active 201 07/07/09 León Kodi SNOW FENCE ERECTOR Edema Peripheral neuropathy 356.9 Active Tesfaye lamb MD Unspecified hereditary and idiopathic peripheral neuropathy Restless leg syndrome 333.94 Active Tsefaye lamb MD Restless legs syndrome (RLS) Overweight [...] Body Mass Index 20.0-20.9 Adult Eldon Shah REPLACED BY [facility] Dysuria ICD-788.1 Inactive Tesfaye Sherman MD 201 07/05/07 Yeast infection ICD-112.9 Inactive Tesfaye lamb MD Upper respiratory infection ICD-465.9 Inactive Tesfaye Sherman MD Overweight (BMI 25-29.9) Inactive Adriana Arredondo REPLACED BY [facility] Medication List Medication Instructions Start Date Stop Date Generic Name NDC Status Provider Patient Instruction FUROSEMIDE 20 MG ORAL TABLET take 1/2 to 1 tablet by mouth d aily prn swelling FUROSEMIDE 53600407100 Active Tesfaye Sherman MD Active FENOFIBRATE 145 MG ORAL TABLET Take 1 tablet by mouth once daily 20 23/12/19 FENOFIBRATE 79657465210 Active Tesfaye Sherman MD Active PRAMIPEXOLE DIHYDROCHLORIDE 0.75 MG ORAL TABLET take 1 tab po qhs for restless leg syndrome. PRAMIPEXOLE DIHYDROCHLORIDE [id number] Acti ve Tesfaye Sherman MD Active DIFLUCAN 100 MG ORAL TABLET 1 tablet by mouth daily 20 23/12/05 FLUCONAZOLE 64462787325 No Longer Active Tesfaye Sherman MD Acti ve [facility] NIACIN FLUSH FREE 400-100 MG ORAL CAPSULE 1 daily NIACIN-INOSITOL 73805094897 No Longer Active Tesfaye Sherman MD A ctive FISH OIL 1000 MG ORAL CAPSULE DELAYED RELEASE 1 pill b y mouth daily for cholesterol OMEGA-3 FATTY ACIDS 63360553150 No Longe r Active Tesfaye Sherman MD Active UNISOM SLEEPMELTS 25 MG ORAL TABLET DISINTEGRATING 1.5 po q hs DIPHENHYDRAMINE HCL (SLEEP) 73641146506 No Longer Active Venkata Sherman MD Active PREDNISONE 20 MG ORAL TABLET 1 tab twice daily for 3 d ay, then one daily for three days PREDNISONE 81700379370 No Longer Active Tesfaye Sherman MD Active BACLOFEN 10 MG ORAL TABLET Take one tablet by mouth three times a day BACLOFEN 85463797543 No Longer Active Tesfaye Sherman MD Active LIDOCAINE 4 % EXTERNAL CREAM Apply to back prn pain LIDOCAINE 57944269254 Active Tesfaye Sherman MD Active TIZANIDINE HCL 2 MG ORAL TABLET 2 Mg in the AM and 6mg q hs 07/05 TIZANIDINE HCL 24693175027 Active Tesfaye Sherman MD Active HYDROXYZINE HCL 25 MG TABS TAKE 1 TABLET BY MOUTH AT B EDTIME NEEDED FOR SLEEP HYDROXYZINE HCL 10972646132 Active JOSHUA Lindsay Active FLUCONAZOLE 100 MG ORAL TABLET 1 by mouth daily for yeast infect ion FLUCONAZOLE 87921288130 No Longer Active Laurence Dominguez Acti ve ZITHROMAX 250 MG ORAL TABLET 2 po today, then 1 po q days 2-5 20 21/08/28 AZITHROMYCIN 35268613752 No Longer Active Tesfaye Sherman MD Active DIFLUCAN 100 MG ORAL TABLET 1 tablet by mouth daily 20 21/08/28 FLUCONAZOLE 53820352989 No Longer Active Tesfaye Sherman MD Acti ve HYDROXYZINE HCL 25 MG ORAL TABLET 1 tab po at HS prn sleep 08/02 HYDROXYZINE HCL 19356816090 No Longer Active Tesfaye Sherman MD Active MIRAPEX 0.5 MG ORAL TABLET 1 tablet at night for restless leg. 2018 PRAMIPEXOLE DIHYDROCHLORIDE 45993333870 Active Laurenceyohana Lopezida Active MIRAPEX 0.25 MG ORAL TABLET 1 tablet by mouth at night for r estless leg PRAMIPEXOLE DIHYDROCHLORIDE 34213188635 No Longer Act trent Laurence Dominguez Active MIRAPEX 0.125 MG ORAL TABLET 1 po nightly PRAMIPEXOLE DIHYDROCHLORIDE 79819625252 No Longer Active Laurence Dominguez Active ROPINIROLE HCL 2 MG ORAL TABLET 1 po at hs ROPI NIROLE HCL 56939207784 No Longer Active Laurenceyohana Lopezida Active ROPINIROLE HCL 1 MG ORAL TABLET 1 tab po q hs ROPINIROLE HCL 27766681689 No Longer Active Laurenceyohana Dominguez Active ROPINIROLE HCL 0.5 MG ORAL TABLET 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 ROPINIROLE HCL 93187164019 No Longer Active MARCUS Panchal Active ROPINIROLE HCL 0.25 MG ORAL TABLET 1 TAB PO Q HS 05/31 ROPINIROLE HCL 63582740684 No Longer Active Tesfaye Sherman MD Ac tive PREDNISONE 20 MG ORAL TABLET 1 tab twice daily for 3 d ay, then one daily for three days PREDNISONE 74711895955 No Longer Active Tesfaye Sherman MD Active AMITRIPTYLINE HCL 50 MG ORAL TABLET 1 po q hs for sleep AMITRIPTYLINE HCL 29373418444 No Longer Active Tesfaye Sherman MD Active AMITRIPTYLINE HCL 10 MG ORAL TABLET 1 tablet nightly by mout h for neuropathy AMITRIPTYLINE HCL 17263287310 No Longer Active MARCUS Stapleton Active DIFLUCAN 100 MG ORAL TABLET 1 tablet by mouth daily 21/03/11 FLUCONAZOLE 78747611125 No Longer Active Tesfaye Sherman MD Acti ve BACTRIM DS 800-160 MG ORAL TABLET 1 tab by mouth twice daily 201 07/08/06 TRIMETHOPRIM-SULFAMETHOXAZOLE 51067820579 No Longer Active Umer Sherman MD Active CLARITIN 10 MG ORAL TABLET Take one by mouth daily LORATADINE 51404561860 Active Tesfaye Sherman MD Active SUDAFED 12 HOUR 120 MG ORAL TABLET EXTENDED RELEASE 12 HOUR 1 pill twice daily if needed for congestion PSEUDOEPHEDRINE HCL 359887506 13 No Longer Active Tesfaye Sherman MD Active GABAPENTIN 300 MG ORAL CAPSULE 1 po daily GABAP ENTIN 74005043293 No Longer Active Tesfaye Sherman MD Active HYDROCHLOROTHIAZIDE 12.5 MG ORAL CAPSULE 1 pill by mough daily 2 HYDROCHLOROTHIAZIDE 98512768040 No Longer Active León Mariee APRN Active VENLAFAXINE HCL 75 MG ORAL TABLET 1 am 1/2 at noon 201 07/07/09 VENLAFAXINE HCL 25957129361 No Longer Active León Mariee APRN Act trent DIFLUCAN 100 MG ORAL TABLET 1 tablet by mouth daily 19/02/09 FLUCONAZOLE 50960667720 No Longer Active León Kodi SNOW FENCE ERECTOR Active DIFLUCAN 100 MG ORAL TABLET 1 tablet by mouth daily 19/02/09 FLUCONAZOLE 79767354818 No Longer Active Leónkash Mariee APRN Active OXYCODONE-ACETAMINOPHEN 5-325 MG ORAL TABLET Take one tablet by mouth every 6 hours 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 Use sparingly OXYCODONE-ACETAMINOPHEN 42276597904 Active Tesfaye villar MD Active CLONAZEPAM 0.5 MG ORAL TABLET Take 1/2 qam, and 1/2 qpm CLONAZEPAM 13589552364 Active Tesfaye Sherman MD Active PRELIEF 340 (65-50) MG (CA-P) ORAL TABLET CALCIUM GLYCEROPHOSPHATE 38194874644 No Longer Active Tesfaye Sherman MD Active SUDAFED 24 HOUR 240 MG ORAL TABLET EXTENDED RELEASE 24 HOUR 1 tab po daily PSEUDOEPHEDRINE HCL 93000301969 No Longer Active Raul Sherman MD Active RED YEAST RICE 600 MG ORAL CAPSULE 1 pill by mouth daily RED YEAST RICE EXTRACT 77802937438 No Longer Active Tesfaye Sherman MD Active REPHRESH PRO-B ORAL CAPSULE 1 tablet daily LACT OBACILLUS 84086276641 No Longer Active Tesfaye Sherman MD Active ABILIFY 2 MG ORAL TABLET 1 by mouth daily. MARIA ELENA PIPRAZOLE 44620683181 Active Tesfaye Sherman MD Active CYMBALTA 60 MG ORAL CAPSULE DELAYED RELEASE PARTICLES 1 cap by mouth daily for pain DULOXETINE HCL 35699834272 Active MARCUS Lindsay Active DIFLUCAN 100 MG ORAL TABLET 1 tablet by mouth daily 20 20/06/06 FLUCONAZOLE 52328594473 No Longer Active Tesfaye Sherman MD Acti ve PREDNISONE 20 MG ORAL TABLET 1 tablet by mouth twice d aily for 3 days, then 1 tablet daily for 3 days PREDNISONE 00868584226 No L onger Active Tesfaye Sherman MD Active BACTRIM DS 800-160 MG ORAL TABLET 1 tab by mouth twice daily 201 06/09/02 TRIMETHOPRIM-SULFAMETHOXAZOLE 77625795644 No Longer Active Katarina masterskatarina Lopezduyen Active DIFLUCAN 100 MG ORAL TABLET 1 tablet by mouth daily 20 20/05/01 FLUCONAZOLE 89913612337 No Longer Active Tesfaye Sherman MD Acti ve ZITHROMAX 250 MG ORAL TABLET 2 po today, then 1 po q days 2-5 20 20/04/28 AZITHROMYCIN 66836097621 No Longer Active Tesfaye Sherman MD Active MECLIZINE HCL 25 MG ORAL TABLET one tab po qday prn dizziness 20 17/09/06 MECLIZINE HCL 62603165296 No Longer Active Tesfaye Sherman MD Active PROAIR HFA 108 (90 BASE) MCG/ACT INHALATION AEROSOL SO LUTION 1 puff every 6 hours as needed ALBUTEROL SULFATE 68630392926 No Long er Active Tesfaye Sherman MD Active PREDNISONE 20 MG ORAL TABLET 1 tab twice daily for 3 d ay, then one daily for three days PREDNISONE 58636753130 No Longer Active Tesfaye Sherman MD Active MECLIZINE HCL 25 MG ORAL TABLET one 4 times a day as needed for dizziness MECLIZINE HCL 09556689444 Active Tesfaye Sherman MD Active AMOXICILLIN 500 MG ORAL CAPSULE 1 cap by mouth three times a day AMOXICILLIN 73200687779 No Longer Active Laurence Dominguez Acti ve DIFLUCAN 100 MG ORAL TABLET 1 tablet by mouth daily 20 19/08/26 FLUCONAZOLE 33204704733 No Longer Active Tesfaye Sherman MD Acti ve BACTRIM DS 800-160 MG ORAL TABLET 1 tab by mouth twice daily 201 05/10/28 TRIMETHOPRIM-SULFAMETHOXAZOLE 04355079549 No Longer Active Katarina Dominguez Active FOSAMAX 70 MG ORAL TABLET 1 po qweek. Take 30min prio r to first food/drink. Avoid lying down x 1 hour. ALENDRONATE SODIUM 55775724 144 No Longer Active Laurence Dominguez Active CYMBALTA 60 MG ORAL CAPSULE DELAYED RELEASE PARTICLES Take 1 tablet by mouth daily DULOXETINE HCL 95108264368 No Longer Active Edith Burch MD Active CYMBALTA 30 MG ORAL CAPSULE DELAYED RELEASE PARTICLES 1 cap by mouth daily with 60mg DULOXETINE HCL 04351049615 No Longer Active Jordan Burch MD Active DIFLUCAN 100 MG ORAL TABLET 1 tablet by mouth daily 20 19/03/05 FLUCONAZOLE 32983134802 No Longer Active eTsfaye Sherman MD Acti ve BACTRIM DS 800-160 MG ORAL TABLET 1 tab by mouth twice daily 201 05/06/28 TRIMETHOPRIM-SULFAMETHOXAZOLE 64131881060 No Longer Active Umer Sherman MD Active BACTRIM DS 800-160 MG ORAL TABLET 1 tab by mouth twice daily 201 05/04/15 TRIMETHOPRIM-SULFAMETHOXAZOLE 04074748665 No Longer Active Umer Sherman MD Active DIFLUCAN 150 MG ORAL TABLET 1 tablet by mouth daily 18/09/20 FLUCONAZOLE 65295386282 No Longer Active Tesfaye Sherman MD Acti ve BACTRIM DS 800-160 MG ORAL TABLET 1 tab by mouth twice daily 201 04/13/17 TRIMETHOPRIM-SULFAMETHOXAZOLE 51724117482 No Longer Active D patricia Sherman MD Active CEFTIN 250 MG ORAL TABLET 1 tablet twice daily x 7 days CEFUROXIME AXETIL 98322720339 No Longer Active Tesfaye Sherman MD Active DIFLUCAN 100 MG ORAL TABLET 1 tablet by mouth every other da y for 2 doses FLUCONAZOLE 27788155224 No Longer Active Tesfaye barron MD Active DIFLUCAN 100 MG ORAL TABLET 1 tablet by mouth daily X 3 DAYS 201 04/09/01 FLUCONAZOLE 45160435292 No Longer Active Rj Moss DO Ac tive MIRTAZAPINE 15 MG ORAL TABLET 1/2 tab by mouth at bedtime. 03/13 MIRTAZAPINE 11255446344 No Longer Active Tesfaye Sherman MD Active BACTRIM DS 800-160 MG ORAL TABLET 1 tab by mouth twice daily 201 04/09/01 TRIMETHOPRIM-SULFAMETHOXAZOLE 91260358644 No Longer Active D patricia Sherman MD Active PRAMIPEXOLE DIHYDROCHLORIDE 0.125 MG ORAL TABLET take 1 tablet po qhs for restless leg syndrome. PRAMIPEXOLE DIHYDROCHLORI DE 36963323289 No Longer Active Tesfaye Sherman MD Active MAGNESIUM 400 MG ORAL TABLET 1 tab po daily MAGNE SIUM 38767183755 Active Chelsea Cardenas APRN Active CETIRIZINE HCL 5 MG ORAL TABLET Take 1 tablet by mouth daily CETIRIZINE HCL 14191860518 No Longer Active Chelsea Cardenas APRN Activ e TRIMETHOPRIM 100 MG ORAL TABLET 1/2 qd TRIM ETHOPRIM 74203392335 No Longer Active Chelsea Cardenas APRN Active BACTRIM DS 800-160 MG ORAL TABLET 1 tab by mouth twice daily 201 04/04/11 TRIMETHOPRIM-SULFAMETHOXAZOLE 84041118151 No Longer Active D avid M [place] MD Active BACTRIM DS 800-160 MG ORAL TABLET 1 tab by mouth twice daily X 10 DAYS TRIMETHOPRIM-SULFAMETHOXAZOLE 71621780600 No Longer Active Tesfaye Sherman MD Active AMOXICILLIN 500 MG ORAL CAPSULE 1 cap by mouth three times a day AMOXICILLIN 73803982488 No Longer Active Adriana Arredondo, REPLACED BY [facility] A ctive B-12 1000 MCG ORAL LOZENGE 1 tab po daily CYANO COBALAMIN 37718389645 Active Tesfaye Sherman MD Active VITAMIN D3 2000 UNIT ORAL TABLET 1 daily, for vitamin D deficien cy CHOLECALCIFEROL 56747971881 No Longer Active Tesfaye Sherman MD Active ZITHROMAX 250 MG ORAL TABLET 2 po today, then 1 po q days 2-5 20 15/02/10 AZITHROMYCIN 09261473386 No Longer Active Tesfaye Sherman MD Active BACTRIM DS 800-160 MG ORAL TABLET 1 tab by mouth twice daily 201 03/03/23 TRIMETHOPRIM-SULFAMETHOXAZOLE 13868895240 No Longer Active Umer Sherman MD Active DIFLUCAN 150 MG ORAL TABLET 1 qd FLUCONAZOL E 59939876322 No Longer Active Kayla Cooper MD Active FLUTICASONE PROPIONATE 50 MCG/ACT NASAL SUSPENSION 1 spray each nostril twice daily FLUTICASONE PROPIONATE 63143696165 Active Umer Sherman MD Active LOVASTATIN 20 MG ORAL TABLET Take 1 tablet by mouth daily LOVASTATIN 51404481405 No Longer Active Tesfaye Sherman MD Acti ve MELOXICAM 7.5 MG ORAL TABLET 1 tablet by mouth daily 2 MELOXICAM 93882944579 No Longer Active Tesfaye Sherman MD Acti ve GABAPENTIN 300 MG ORAL CAPSULE Take two tablets by mouth every e vening GABAPENTIN 13139260922 No Longer Active Edith Burch MD A ctive GABAPENTIN 300 MG ORAL CAPSULE Take two tablets by mouth every e vening GABAPENTIN 300 MG ORAL CAPSULE 124756 GABAPENTIN I nactive MELOXICAM 7.5 MG ORAL TABLET 1 tablet by mouth daily 2 MELOXICAM 7.5 MG ORAL TABLET 215037 MELOXICAM Inactive LOVASTATIN 20 MG ORAL TABLET Take 1 tablet by mouth daily LOVASTATIN 20 MG ORAL TABLET 524051 LOVASTATIN Inactive DIFLUCAN 150 MG ORAL TABLET 1 qd DIFLUCAN 150 MG ORAL TABLET 888979 FLUCONAZOLE Inactive VITAMIN D3 2000 UNIT ORAL TABLET 1 daily, for vitamin D deficien cy VITAMIN D3 2000 UNIT ORAL TABLET CHOLECALCIFEROL Inactive AMOXICILLIN 500 MG ORAL CAPSULE 1 cap by mouth three times a day AMOXICILLIN 500 MG ORAL CAPSULE 121663 AMOXICILLIN Inactive BACTRIM DS 800-160 MG ORAL TABLET 1 tab by mouth twice daily X 10 DAYS BACTRIM DS 800-160 MG ORAL TABLET 499884 TRIMETHOPRIM-SULFAMETHOXAZOLE Inactive TRIMETHOPRIM 100 MG ORAL TABLET 1/2 qd 7 TRIMETHOPRIM 100 MG ORAL TABLET 831542 TRIMETHOPRIM Inactive CETIRIZINE HCL 5 MG ORAL TABLET Take 1 tablet by mouth daily CETIRIZINE HCL 5 MG ORAL TABLET 5929041 CETIRIZINE HCL Inactive PRAMIPEXOLE DIHYDROCHLORIDE 0.125 MG ORAL TABLET take 1 tablet po qhs for restless leg syndrome. PRAMIPEXOLE DIHYD ROCHLORIDE 0.125 MG ORAL TABLET 139925 PRAMIPEXOLE DIHYDROCHLORIDE Inactive MIRTAZAPINE 15 MG ORAL TABLET 1/2 tab by mouth at bedtime. 03/13 MIRTAZAPINE 15 MG ORAL TABLET 140487 MIRTAZAPINE In active DIFLUCAN 100 MG ORAL TABLET 1 tablet by mouth daily X 3 DAYS 201 04/09/01 DIFLUCAN 100 MG ORAL TABLET 434685 FLUCONAZOLE Inac tive DIFLUCAN 100 MG ORAL TABLET 1 tablet by mouth every other da y for 2 doses DIFLUCAN 100 MG ORAL TABLET 801753 FLUCONAZOLE Inactive CEFTIN 250 MG ORAL TABLET 1 tablet twice daily x 7 days CEFTIN 250 MG ORAL TABLET CEFUROXIME AXETIL Inactive CYMBALTA 30 MG ORAL CAPSULE DELAYED RELEASE PARTICLES 1 cap by mouth daily with 60mg CYMBALTA 30 MG ORAL CAPSULE DELAYED RELEASE PARTICLES 723928 DULOXETINE HCL Inactive CYMBALTA 60 MG ORAL CAPSULE DELAYED RELEASE PARTICLES Take 1 tablet by mouth daily CYMBALTA 60 MG ORAL CAPSULE DELAYED RELEA SE PARTICLES 472287 DULOXETINE HCL Inactive FOSAMAX 70 MG ORAL TABLET 1 po qweek. Take 30min prio r to first food/drink. Avoid lying down x 1 hour. FOSAMAX 70 MG ORAL TA BLET 052905 ALENDRONATE SODIUM Inactive DIFLUCAN 100 MG ORAL TABLET 1 tablet by mouth daily 19/08/26 DIFLUCAN 100 MG ORAL TABLET 843779 FLUCONAZOLE Inactive PREDNISONE 20 MG ORAL TABLET 1 tab twice daily for 3 d ay, then one daily for three days PREDNISONE 20 MG ORAL TABLET 509335 PREDNIS ONE Inactive PROAIR HFA 108 (90 BASE) MCG/ACT INHALATION AEROSOL SO LUTION 1 puff every 6 hours as needed PROAIR HFA 108 (90 B ASE) MCG/ACT INHALATION AEROSOL SOLUTION ALBUTEROL SULFATE Inactive MECLIZINE HCL 25 MG ORAL TABLET one tab po qday prn dizziness 20 17/09/06 MECLIZINE HCL 25 MG ORAL TABLET 788080 MECLIZINE HCL Inactive PREDNISONE 20 MG ORAL TABLET 1 tablet by mouth twice d aily for 3 days, then 1 tablet daily for 3 days PREDNISONE 20 MG ORAL TA BLET 990605 PREDNISONE Inactive DIFLUCAN 100 MG ORAL TABLET 1 tablet by mouth daily 20 20/06/06 DIFLUCAN 100 MG ORAL TABLET 740306 FLUCONAZOLE Inactive REPHRESH PRO-B ORAL CAPSULE 1 tablet daily REPHRESH PRO-B ORAL CAPSULE LACTOBACILLUS Inactive RED YEAST RICE 600 MG ORAL CAPSULE 1 pill by mouth daily RED YEAST RICE 600 MG ORAL CAPSULE 447451 RED YEAST RICE EXTRACT In active SUDAFED [...] daily 19/02/09 DIFLUCAN 100 MG ORAL TABLET 642263 FLUCONAZOLE Inactive DIFLUCAN 100 MG ORAL TABLET 1 tablet by mouth daily 19/02/09 DIFLUCAN 100 MG ORAL TABLET 620010 FLUCONAZOLE Inactive VENLAFAXINE HCL 75 MG ORAL TABLET 1 am 1/2 at noon 201 07/07/09 VENLAFAXINE HCL 75 MG ORAL TABLET 785882 VENLAFAXINE HCL Inacti ve GABAPENTIN 300 MG ORAL CAPSULE 1 po daily GABAPENTIN 300 MG ORAL CAPSULE 200890 GABAPENTIN Inactive SUDAFED 12 HOUR 120 MG ORAL TABLET EXTENDED RELEASE 12 HOUR 1 pill twice daily if needed for congestion SUDAFED 12 HOUR 120 MG ORAL TABLET EXTENDED RELEASE 12 HOUR PSEUDOEPHEDRINE HCL Inactive AMITRIPTYLINE HCL 10 MG ORAL TABLET 1 tablet nightly by mout h for neuropathy AMITRIPTYLINE HCL 10 MG ORAL TABLET 555271 AMITRIPTYLINE HCL Inactive AMITRIPTYLINE HCL 50 MG ORAL TABLET 1 po q hs for sleep AMITRIPTYLINE HCL 50 MG ORAL TABLET 701913 AMITRIPTYLINE HCL Inac tive PREDNISONE 20 MG ORAL TABLET 1 tab twice daily for 3 d ay, then one daily for three days PREDNISONE 20 MG ORAL TABLET 573449 PREDNIS ONE Inactive ROPINIROLE HCL 0.25 MG ORAL TABLET 1 TAB PO Q HS 05/31 ROPINIROLE HCL 0.25 MG ORAL TABLET 910532 ROPINIROLE HCL Inact trent ROPINIROLE HCL 0.5 MG ORAL TABLET 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 ROPINIROLE HCL 0.5 MG ORAL TABLET 801309 ROPINIR OLE HCL Inactive ROPINIROLE HCL 1 MG ORAL TABLET 1 tab po q hs ROPINIROLE HCL 1 MG ORAL TABLET 644889 ROPINIROLE HCL Inactive ROPINIROLE HCL 2 MG ORAL TABLET 1 po at hs 7 ROPINIROLE HCL 2 MG ORAL TABLET 591074 ROPINIROLE HCL Inactive MIRAPEX 0.125 MG ORAL TABLET 1 po nightly MIRAPEX 0.125 MG ORAL TABLET 483558 PRAMIPEXOLE DIHYDROCHLORIDE Inactive MIRAPEX 0.25 MG ORAL TABLET 1 tablet by mouth at night for r estless leg MIRAPEX 0.25 MG ORAL TABLET PRAMIPEXOLE D IHYDROCHLORIDE Inactive HYDROXYZINE HCL 25 MG ORAL TABLET 1 tab po at HS prn sleep 08/02 HYDROXYZINE HCL 25 MG ORAL TABLET 114412 HYDROXYZINE HC L Inactive DIFLUCAN 100 MG ORAL TABLET 1 tablet by mouth daily 21/08/28 DIFLUCAN 100 MG ORAL TABLET 146106 FLUCONAZOLE Inactive BACLOFEN 10 MG ORAL TABLET Take one tablet by mouth three times a day BACLOFEN 10 MG ORAL TABLET 255123 BACLOFEN Inact trent PREDNISONE 20 MG ORAL TABLET 1 tab twice daily for 3 d ay, then one daily for three days PREDNISONE 20 MG ORAL TABLET 195671 PREDNIS ONE Inactive UNISOM SLEEPMELTS 25 MG [...] 03/03/23 BACTRIM DS 800-160 MG ORAL TABLET 490904 TRIMETHOPRIM-SULFAMETHOXAZOLE Inactive ZITHROMAX 250 MG ORAL TABLET 2 po today, then 1 po q days 2-5 20 15/02/10 ZITHROMAX 250 MG ORAL TABLET 792055 AZITHROMYCIN [place] ctive BACTRIM DS 800-160 MG ORAL TABLET [...] 20 19/03/05 DIFLUCAN 100 MG ORAL TABLET 668497 FLUCONAZOLE Inactive BACTRIM DS 800-160 MG ORAL TABLET 1 tab by mouth twice daily 201 05/10/28 BACTRIM DS 800-160 MG ORAL TABLET 19830105 TRIMETHOPRIM-SULFAMETHOXAZOLE Inactive AMOXICILLIN 500 MG ORAL CAPSULE 1 cap by mouth three times a day AMOXICILLIN 500 MG ORAL CAPSULE 305997 AMOXICILLIN Inactive ZITHROMAX 250 MG ORAL TABLET 2 po today, then 1 po q days 2-5 20 20/04/28 ZITHROMAX 250 MG ORAL TABLET 138817 AZITHROMYCIN [place] ctive DIFLUCAN 100 MG ORAL [...] 20 21/08/28 ZITHROMAX 250 MG ORAL TABLET 749807 AZITHROMYCIN [place] ctive FLUCONAZOLE 100 MG ORAL TABLET 1 [...] LIVING WILL ON FILE DURABLE POWER OF EMS DRIVER FOR HEALTHCARE Vital Signs Date Name Value [...] Magnesium - Chemistry cholesterol, serum 196 mg/dL 564-272 0324/07/30 triglyceride, serum, fasting 86 mg/dL 30-200 HDL cholesterol, serum 41 mg/dL 32-60 LDL cholesterol, serum 138 mg/dL 0-130 sodium, serum 140 mmol/L 382-345 0169/07/30 carbon dioxide, venous blood 28.6 mmol/L 21.0-32 [...] 5.0-8.5 Encounters Code Encounter Date Provider Facility CPT-43007 [id number] Vst-Est Level IV 08:56:46 C BRIDGET Sherman MD [facility] CPT-96958 [id number] Vst-Est Level IV 10:36:10 C BRIDGET Sherman MD [facility] CPT-83417 [id number] Vst-Est Level IV 13:49:08 DIE MECHANIC Mendy Stovallord [facility] CPT-32206 [id number] Vst-Est Level IV 11:39:[address] Tesfaye Sherman MD [facility] CPT-67394 [id number] Vst-Est Level IV 14:08:03 C BRIDGET Sherman MD [facility] CPT-33808 Level 3 Est. Patient 18:06:36 CDT Tesfaye pearson MD [facility] CPT-62144 [id number] Vst-Est Level IV 17:09:34 C BRIDGET Sherman MD [facility] CPT-19661 Level 3 Est. Patient 17:27:08 CDT León Bandar hernandez APRN [facility] CPT-94304 [id number] Vst-Est Level IV 14:00:[address] Tesfaye Sherman MD [facility] CPT-48445 [id number] Vst-Est Level IV 19:27:[address] Tesfaye Sherman MD [facility] CPT-27082 [id number] Vst-Est Level IV 10:41:41 C BRIDGET Sherman MD [facility] CPT-12102 [id number] Vst-Est Level III 09:40:56 CDT Tesfaye Sherman MD [facility] CPT-67503 Level 4 Est. Patient 22:18:12 CDT Tesfaye pearson MD [facility] CPT-16246 Level 4 Est. Patient 14:44:33 DIE MECHANIC Tesfaye pearson MD [facility] CPT-02811 Level 4 Est. Patient 13:55:29 DIE MECHANIC Tesfaye pearson MD [facility] CPT-41734 Level 4 Est. Patient 17:07:34 DIE MECHANIC Tesfaye pearson MD [facility] CPT-25728 Level 4 Est. Patient 13:56:54 CDT Tesfaye pearson MD [facility] CPT-73129 Level 4 Est. Patient 13:24:25 CDT Chelsea sanz APRN [facility] CPT-39479 Level 4 Est. Patient 09:14:56 CDT Tesfaye pearson MD [facility]-[id number] Level 4 Est. Patient 18:40:25 DIE MECHANIC Tesfaye pearson MD [facility]-71130 Level 4 Est. Patient 18:13:07 DIE MECHANIC Tesfaye pearson MD [facility]-83238 Level 3 Est. Patient 10:46:32 CDT Rj cotto DO [facility]-[id number] Level 4 Est. Patient 20:19:25 CDT Tesfaye pearson MD [facility]-29469 Level 3 Est. Patient 09:07:31 CDT Tesfaye pearson MD [facility] CPT-52115 Level 4 Est. Patient 13:12:56 CDT Tesfaye pearson MD [facility]-11658 Level 4 Est. Patient 21:24:55 DIE MECHANIC Tesfaye pearson MD [facility] CPT-09189 Level 3 Est. Patient 13:45:04 DIE MECHANIC Tesfaye pearson MD [facility] CPT-91531 Level 4 Est. Patient 13:50:45 CDT Tesfaye pearson MD [facility] CPT-72491 Level 3 Est. Patient 10:16:10 CDT Tesfaye pearson MD [facility] CPT-73943 Level 3 Est. Patient 16:36:07 DIE MECHANIC Kayla jameson MD [facility]-76249 Level 4 Est. Patient 16:00:14 DIE MECHANIC Tesfaye pearson MD [facility]-68963 Level 4 Est. Patient 11:02:24 DIE MECHANIC Tesfaye pearson MD [facility] CPT-28718 Level 3 Est. Patient 20:21:43 DIE MECHANIC Kayla jameson MD [facility] CPT-40849 Level 3 Est. Patient 13:27:28 DIE MECHANIC Kayla jameson MD [facility] CPT-83396 Level 4 Est. Patient 15:57:17 DIE MECHANIC Tesfaye pearson MD [facility] CPT-01353 Level 3 New Patient 13:25:47 CDT Tesfaye kidd MD [facility] CPT-14331 Level 3 New Patient 17:22:21 CDT J John angel MD [facility] Procedures Code Procedure Name Date Entry Date Standard Desc ription CPT-54860 Prv Med Est Pt 40-64yrs 09:01:58 CDT 03/09 CPT-G0439 Subsequent Annual Wellness Exam 11:25:51 CDT CPT-TH9765T (4274F 2P) Patient Reason Influenza immu nization not administered 13:25:19 DIE MECH[employer]IC CPT-19935 Bone Density - XRAY USE ONLY 15:21:33 CDT CPT-42615 Venipuncture Draw Fee 16:12:22 CDT CPT-G0439 Subsequent Annual Wellness Exam 18:06:36 CDT CPT-G0439 Subsequent Annual Wellness Exam 22:18:11 CDT CPT-77056 Bone Density - XRAY USE ONLY 11:43:58 CDT CPT-15846 Bone Density - XRAY USE ONLY 10:05:16 CDT CPT-83792 Prv Med New Pt 40-64 yrs 18:19:25 CDT 2016 CPT-26112 Foot, right, comp min 3V - XRAY USE ONLY 10:38:34 CDT CPT-G0439 Subsequent Annual Wellness Exam 13:55:04 CDT CPT-G0438 Initial Annual Wellness Exam 11:23:17 CD T CPT-J2930 Solu Medrol 125 mg (Methyl Prednisolone Sodium Succinate) 17:29:12 DIE MECHANIC CPT-47467 Abx/Therapy Injection 17:29:11 DIE MECHANIC CPT-J2930 Solu Medrol 125 mg (Methyl Prednisolone Sodium Succinate) 12:34:38 DIE MECHANIC CPT-J3420 Vitamin B12 1000mcg (Cyanocobalamin) 09:12:55 CDT CPT-J3420 Vitamin B12 1000mcg (Cyanocobalamin) 16:28:06 DIE MECHANIC CPT-74768 Venipuncture Draw Fee 08:39:53 CDT CPT-J3420 Vitamin B12 1000mcg (Cyanocobalamin) 08:46:22 CDT CPT-11984 Abx/Therapy Injection 08:46:22 CDT CPT-J3420 Vitamin B12 1000mcg (Cyanocobalamin) 08:41:26 CDT CPT-57582 Abx/Therapy Injection 08:41:26 CDT CPT-J3420 Vitamin B12 1000mcg (Cyanocobalamin) 08:57:15 CDT CPT-22765 Abx/Therapy Injection 08:57:15 CDT CPT-J3420 Vitamin B12 1000mcg (Cyanocobalamin) 10:59:03 CDT CPT-98138 Abx/Therapy Injection 10:59:03 CDT CPT-J3420 Vitamin B12 1000mcg (Cyanocobalamin) 15:05:39 CDT CPT-40256 Abx/Therapy Injection 15:05:39 CDT CPT-J3420 Vitamin B12 1000mcg (Cyanocobalamin) 13:50:45 CDT CPT-J3420 Vitamin B12 1000mcg (Cyanocobalamin) 08:48:55 CDT CPT-96101 Abx/Therapy Injection 08:48:55 CDT CPT-J3420 Vitamin B12 1000mcg (Cyanocobalamin) 09:14:54 CDT CPT-51047 Abx/Therapy Injection 09:14:54 CDT CPT-J3420 Vitamin B12 1000mcg (Cyanocobalamin) 09:06:06 CDT CPT-34790 Abx/Therapy Injection 09:06:06 CDT CPT-J3420 Vitamin B12 1000mcg (Cyanocobalamin) 09:49:14 CDT CPT-49389 Abx/Therapy Injection 09:49:14 CDT CPT-J3420 Vitamin B12 1000mcg (Cyanocobalamin) 09:10:30 DIE MECHANIC CPT-15123 Abx/Therapy Injection 09:10:30 DIE MECHANIC CPT-J3420 Vitamin B12 1000mcg (Cyanocobalamin) 09:11:07 DIE MECHANIC CPT-96024 Abx/Therapy Injection 09:11:07 DIE MECHANIC CPT-J3420 Vitamin B12 1000mcg (Cyanocobalamin) 09:57:03 DIE MECHANIC CPT-08045 Abx/Therapy Injection 09:57:03 DIE MECHANIC CPT-J3420 Vitamin B12 1000mcg (Cyanocobalamin) 09:23:21 DIE MECHANIC CPT-07040 Abx/Therapy Injection 09:23:21 DIE MECHANIC CPT-11041 Urine Dip (Floor Use Only) 20:21:44 DIE MECHANIC 201 02/12/11 CPT-32233 UA Dip Auto (Floor Use Only) 10:04:39 DIE MECHANIC 2 CPT-11943 Urine Dip (Floor Use Only) 13:27:28 DIE MECHANIC 201 02/12/01 CPT-36081 Bladder Scan 13:27:28 DIE MECHANIC CPT-41610 Abd single AP View 14:30:51 DIE MECHANIC CPT-OV Office Visit 10:15:43 CDT CPT-48147 Urine Dip (Floor Use Only) 17:22:21 CDT 201 02/09/02 CPT-74102 Bladder Scan 17:22:21 CDT
--- OUTSIDE RECORDS SUMMARY | 2020-05-05 11:58 | XMS REPORT | Clinical Summary ---
Author Author Talon, Jeri Wood Organization [email or web address] Address Unknown Phone Unavailable Allergies, Adverse Reactions, [...] Sherman MD Routine general medical examination at [facility] acility Sinusitis 461.9 Resolved Tesfaye Sherman MD Acute sinusitis, unspecified B12 deficiency 266.2 Active Tesfaye Sherman MD Other B- complex deficiencies Dysuria 788.1 Resolved Tesfaye Shreman MD Dysuria Sinusitis 473.9 Resolved Tesfaye Sherman [...] bilateral 782.3 Active 201 07/07/09 León Kodi [employer] BUSINESS INTELLIGENCE CONSULTANT Edema Peripheral neuropathy 356.9 Active Tesfaye lamb MD Unspecified hereditary and idiopathic peripheral neuropathy Restless leg syndrome 333.94 Active Tefsaye lamb MD Restless legs syndrome (RLS) Overweight [...] Body Mass Index 20.0-20.9 Adult Eldon Shah A Dysuria ICD-788.1 Inactive Tesfaye Sherman MD 201 07/05/07 Yeast infection ICD-112.9 Inactive Tesfaye lamb MD Upper respiratory infection ICD-465.9 Inactive Tesfaye Sherman MD Overweight (BMI 25-29.9) Inactive Adriana Arredondo , A FH Depression ICD-V17.0 Inactive Tesfaye Sherman MD Medication List Medication Instructions Start Date Stop Date Generic Name NDC Status Provider Patient Instruction FUROSEMIDE 20 MG ORAL TABLET take 1/2 to 1 tablet by mouth d aily prn swelling FUROSEMIDE [id number] Active Tesfaye Sherman MD Active FENOFIBRATE 145 MG ORAL TABLET Take 1 tablet by mouth once daily 20 23/12/19 FENOFIBRATE 98116858625 Active Tesfaye Sherman MD Active PRAMIPEXOLE DIHYDROCHLORIDE 0.75 MG ORAL TABLET take 1 tab po qhs for restless leg syndrome. PRAMIPEXOLE DIHYDROCHLORIDE 60951530479 Acti ve Tesfaye Sherman MD Active DIFLUCAN 100 MG ORAL TABLET 1 tablet by mouth daily 20 23/12/05 FLUCONAZOLE 32042817111 No Longer Active Tesfaye Sherman MD Acti ve [facility] NIACIN FLUSH FREE 400-100 MG ORAL CAPSULE 1 daily NIACIN-INOSITOL 04770622667 No Longer Active Tesfaye Sherman MD A ctive FISH OIL 1000 MG ORAL CAPSULE DELAYED RELEASE 1 pill b y mouth daily for cholesterol OMEGA-3 FATTY ACIDS 04105014868 No Longe r Active Tesfaye Sherman MD Active UNISOM SLEEPMELTS 25 MG ORAL TABLET DISINTEGRATING 1.5 po q hs DIPHENHYDRAMINE HCL (SLEEP) 31675839397 No Longer Active Venkata Sherman MD Active PREDNISONE 20 MG ORAL TABLET 1 tab twice daily for 3 d ay, then one daily for three days PREDNISONE 86629155239 No Longer Active Tesfaye Sherman MD Active BACLOFEN 10 MG ORAL TABLET Take one tablet by mouth three times a day BACLOFEN 89499927430 No Longer Active Tesfaye Sherman MD Active LIDOCAINE 4 % EXTERNAL CREAM Apply to back prn pain LIDOCAINE 42797964833 Active Tesfaye Sherman MD Active TIZANIDINE HCL 2 MG ORAL TABLET 2 Mg in the AM and 6mg q hs 07/05 TIZANIDINE HCL 76568932249 Active Tesfaye Sherman MD Active HYDROXYZINE HCL 25 MG TABS TAKE 1 TABLET BY MOUTH AT B EDTIME NEEDED FOR SLEEP HYDROXYZINE HCL 12408434273 Active JOSHUA Lindsay Active FLUCONAZOLE 100 MG ORAL TABLET 1 by mouth daily for yeast infect ion FLUCONAZOLE 83570549694 No Longer Active Laurence Dominguez Acti ve ZITHROMAX 250 MG ORAL TABLET 2 po today, then 1 po q days 2-5 20 21/08/28 AZITHROMYCIN 16341382766 No Longer Active Tesfaye Sherman MD Active DIFLUCAN 100 MG ORAL TABLET 1 tablet by mouth daily 20 21/08/28 FLUCONAZOLE 72036219342 No Longer Active Tesfaye Sherman MD Acti ve HYDROXYZINE HCL 25 MG ORAL TABLET 1 tab po at HS prn sleep 08/02 HYDROXYZINE HCL 86584057413 No Longer Active Tesfaye Sherman MD Active MIRAPEX 0.5 MG ORAL TABLET 1 tablet at night for restless leg. 2018 PRAMIPEXOLE DIHYDROCHLORIDE 27550006362 Active Laurenceyohana Lopezida Active MIRAPEX 0.25 MG ORAL TABLET 1 tablet by mouth at night for r estless leg PRAMIPEXOLE DIHYDROCHLORIDE 40863068161 No Longer Act trent Laurence Dominguez Active MIRAPEX 0.125 MG ORAL TABLET 1 po nightly PRAMIPEXOLE DIHYDROCHLORIDE 16075089771 No Longer Active Laurence Dominguez Active ROPINIROLE HCL 2 MG ORAL TABLET 1 po at hs ROPI NIROLE HCL 10830103513 No Longer Active Laurenceyohana Lopezida Active ROPINIROLE HCL 1 MG ORAL TABLET 1 tab po q hs ROPINIROLE HCL 91671762088 No Longer Active Laurenceyohana Dominguez Active ROPINIROLE HCL 0.5 MG ORAL TABLET 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 ROPINIROLE HCL 93673260891 No Longer Active MARCUS Panchal Active ROPINIROLE HCL 0.25 MG ORAL TABLET 1 TAB PO Q HS 05/31 ROPINIROLE HCL 45708629227 No Longer Active Tesfaye Sherman MD Ac tive PREDNISONE 20 MG ORAL TABLET 1 tab twice daily for 3 d ay, then one daily for three days PREDNISONE 84787304348 No Longer Active Tesfaye Sherman MD Active AMITRIPTYLINE HCL 50 MG ORAL TABLET 1 po q hs for sleep AMITRIPTYLINE HCL 25071745298 No Longer Active Tesfaye Sherman MD Active AMITRIPTYLINE HCL 10 MG ORAL TABLET 1 tablet nightly by mout h for neuropathy AMITRIPTYLINE HCL 40793337338 No Longer Active MARCUS Stapleton Active DIFLUCAN 100 MG ORAL TABLET 1 tablet by mouth daily 21/03/11 FLUCONAZOLE 22394486555 No Longer Active Tesfaye Sherman MD Acti ve BACTRIM DS 800-160 MG ORAL TABLET 1 tab by mouth twice daily 201 07/08/06 TRIMETHOPRIM-SULFAMETHOXAZOLE 73142880494 No Longer Active Umer Sherman MD Active CLARITIN 10 MG ORAL TABLET Take one by mouth daily LORATADINE 20336999562 Active Tesfaye Sherman MD Active SUDAFED 12 HOUR 120 MG ORAL TABLET EXTENDED RELEASE 12 HOUR 1 pill twice daily if needed for congestion PSEUDOEPHEDRINE HCL 456011755 13 No Longer Active Tesfaye Sherman MD Active GABAPENTIN 300 MG ORAL CAPSULE 1 po daily GABAP ENTIN 52945391835 No Longer Active Tesfaye Sherman MD Active HYDROCHLOROTHIAZIDE 12.5 MG ORAL CAPSULE 1 pill by mough daily 2 HYDROCHLOROTHIAZIDE 70228342985 No Longer Active León Mariee APRN Active VENLAFAXINE HCL 75 MG ORAL TABLET 1 am 1/2 at noon 201 07/07/09 VENLAFAXINE HCL 08502658237 No Longer Active León Mariee APRN Act trent DIFLUCAN 100 MG ORAL TABLET 1 tablet by mouth daily 19/02/09 FLUCONAZOLE 83854215638 No Longer Active León Kodi [employer] BUSINESS INTELLIGENCE CONSULTANT Active DIFLUCAN 100 MG ORAL TABLET 1 tablet by mouth daily 19/02/09 FLUCONAZOLE 40582361205 No Longer Active Leónkash Mariee APRN Active OXYCODONE-ACETAMINOPHEN 5-325 MG ORAL TABLET Take one tablet by mouth every 6 hours 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 Use sparingly OXYCODONE-ACETAMINOPHEN 39482965428 Active Tesfaye villar MD Active CLONAZEPAM 0.5 MG ORAL TABLET Take 1/2 qam, and 1/2 qpm CLONAZEPAM 38280631043 Active Tesfaye Sherman MD Active PRELIEF 340 (65-50) MG (CA-P) ORAL TABLET CALCIUM GLYCEROPHOSPHATE 68064005029 No Longer Active Tesfaye Sherman MD Active SUDAFED 24 HOUR 240 MG ORAL TABLET EXTENDED RELEASE 24 HOUR 1 tab po daily PSEUDOEPHEDRINE HCL 36134040107 No Longer Active Raul Sherman MD Active RED YEAST RICE 600 MG ORAL CAPSULE 1 pill by mouth daily RED YEAST RICE EXTRACT 74184051648 No Longer Active Tesfaye Sherman MD Active REPHRESH PRO-B ORAL CAPSULE 1 tablet daily LACT OBACILLUS 94766056850 No Longer Active Tesfaye Sherman MD Active ABILIFY 2 MG ORAL TABLET 1 by mouth daily. MARIA ELENA PIPRAZOLE 43673097231 Active Tesfaye Sherman MD Active CYMBALTA 60 MG ORAL CAPSULE DELAYED RELEASE PARTICLES 1 cap by mouth daily for pain DULOXETINE HCL 26781153909 Active MARCUS Lindsay Active DIFLUCAN 100 MG ORAL TABLET 1 tablet by mouth daily 20 20/06/06 FLUCONAZOLE 40521166393 No Longer Active Tesfaye Sherman MD Acti ve PREDNISONE 20 MG ORAL TABLET 1 tablet by mouth twice d aily for 3 days, then 1 tablet daily for 3 days PREDNISONE 55112947203 No L onger Active Tesfaye Sherman MD Active BACTRIM DS 800-160 MG ORAL TABLET 1 tab by mouth twice daily 201 06/09/02 TRIMETHOPRIM-SULFAMETHOXAZOLE 61736623364 No Longer Active Katarina masterskatarina Lopezduyen Active DIFLUCAN 100 MG ORAL TABLET 1 tablet by mouth daily 20 20/05/01 FLUCONAZOLE 92566253984 No Longer Active Tesfaye Sherman MD Acti ve ZITHROMAX 250 MG ORAL TABLET 2 po today, then 1 po q days 2-5 20 20/04/28 AZITHROMYCIN 10070570571 No Longer Active Tesfaye Sherman MD Active MECLIZINE HCL 25 MG ORAL TABLET one tab po qday prn dizziness 20 17/09/06 MECLIZINE HCL 53681868583 No Longer Active Tesfaye Sherman MD Active PROAIR HFA 108 (90 BASE) MCG/ACT INHALATION AEROSOL SO LUTION 1 puff every 6 hours as needed ALBUTEROL SULFATE 93747747347 No Long er Active Tesfaye Sherman MD Active PREDNISONE 20 MG ORAL TABLET 1 tab twice daily for 3 d ay, then one daily for three days PREDNISONE 04972085805 No Longer Active Tesfaye Sherman MD Active MECLIZINE HCL 25 MG ORAL TABLET one 4 times a day as needed for dizziness MECLIZINE HCL 10603700697 Active Tesfaye Sherman MD Active AMOXICILLIN 500 MG ORAL CAPSULE 1 cap by mouth three times a day AMOXICILLIN 94017484295 No Longer Active Laurence Dominguez Acti ve DIFLUCAN 100 MG ORAL TABLET 1 tablet by mouth daily 20 19/08/26 FLUCONAZOLE 13288640606 No Longer Active Tesfaye Sherman MD Acti ve BACTRIM DS 800-160 MG ORAL TABLET 1 tab by mouth twice daily 201 05/10/28 TRIMETHOPRIM-SULFAMETHOXAZOLE 30356909947 No Longer Active Katarina Dominguez Active FOSAMAX 70 MG ORAL TABLET 1 po qweek. Take 30min prio r to first food/drink. Avoid lying down x 1 hour. ALENDRONATE SODIUM 75413381 144 No Longer Active Laurence Dominguez Active CYMBALTA 60 MG ORAL CAPSULE DELAYED RELEASE PARTICLES Take 1 tablet by mouth daily DULOXETINE HCL 25217970885 No Longer Active Edith Burch MD Active CYMBALTA 30 MG ORAL CAPSULE DELAYED RELEASE PARTICLES 1 cap by mouth daily with 60mg DULOXETINE HCL 13569159081 No Longer Active Jordan Burch MD Active DIFLUCAN 100 MG ORAL TABLET 1 tablet by mouth daily 20 19/03/05 FLUCONAZOLE 90910782583 No Longer Active Tesfaye Sherman MD Acti ve BACTRIM DS 800-160 MG ORAL TABLET 1 tab by mouth twice daily 201 05/06/28 TRIMETHOPRIM-SULFAMETHOXAZOLE 51989123271 No Longer Active Umer Sherman MD Active BACTRIM DS 800-160 MG ORAL TABLET 1 tab by mouth twice daily 201 05/04/15 TRIMETHOPRIM-SULFAMETHOXAZOLE 43874239744 No Longer Active Umer Sherman MD Active DIFLUCAN 150 MG ORAL TABLET 1 tablet by mouth daily 18/09/20 FLUCONAZOLE 60719491231 No Longer Active Tesfaye Sherman MD Acti ve BACTRIM DS 800-160 MG ORAL TABLET 1 tab by mouth twice daily 201 04/13/17 TRIMETHOPRIM-SULFAMETHOXAZOLE 36494234811 No Longer Active D patricia Sherman MD Active CEFTIN 250 MG ORAL TABLET 1 tablet twice daily x 7 days CEFUROXIME AXETIL 99752606054 No Longer Active Tesfaye Sherman MD Active DIFLUCAN 100 MG ORAL TABLET 1 tablet by mouth every other da y for 2 doses FLUCONAZOLE 66334384258 No Longer Active Tesfaye barron MD Active DIFLUCAN 100 MG ORAL TABLET 1 tablet by mouth daily X 3 DAYS 201 04/09/01 FLUCONAZOLE 46791649999 No Longer Active Rj Moss DO Ac tive MIRTAZAPINE 15 MG ORAL TABLET 1/2 tab by mouth at bedtime. 03/13 MIRTAZAPINE 57869270954 No Longer Active Tesfaye Sherman MD Active BACTRIM DS 800-160 MG ORAL TABLET 1 tab by mouth twice daily 201 04/09/01 TRIMETHOPRIM-SULFAMETHOXAZOLE 36400931769 No Longer Active D patricia Sherman MD Active PRAMIPEXOLE DIHYDROCHLORIDE 0.125 MG ORAL TABLET take 1 tablet po qhs for restless leg syndrome. PRAMIPEXOLE DIHYDROCHLORI DE 73206503299 No Longer Active Tesfaye Sherman MD Active MAGNESIUM 400 MG ORAL TABLET 1 tab po daily MAGNE SIUM 79718902333 Active Chelsea Cardenas APRN Active CETIRIZINE HCL 5 MG ORAL TABLET Take 1 tablet by mouth daily CETIRIZINE HCL 50290443190 No Longer Active Chelsea Cardenas APRN Activ e TRIMETHOPRIM 100 MG ORAL TABLET 1/2 qd TRIM ETHOPRIM 91940327797 No Longer Active Chelsea Cardenas APRN Active BACTRIM DS 800-160 MG ORAL TABLET 1 tab by mouth twice daily 201 04/04/11 TRIMETHOPRIM-SULFAMETHOXAZOLE 16437068737 No Longer Active D avid M [place] MD Active BACTRIM DS 800-160 MG ORAL TABLET 1 tab by mouth twice daily X 10 DAYS TRIMETHOPRIM-SULFAMETHOXAZOLE 77665901112 No Longer Active Tesfaye Sherman MD Active AMOXICILLIN 500 MG ORAL CAPSULE 1 cap by mouth three times a day AMOXICILLIN 35410571923 No Longer Active Adriana Arredondo, [facility] A ctive B-12 1000 MCG ORAL LOZENGE 1 tab po daily CYANO COBALAMIN 72072175684 Active Tesfaye Sherman MD Active VITAMIN D3 2000 UNIT ORAL TABLET 1 daily, for vitamin D deficien cy CHOLECALCIFEROL 02963515564 No Longer Active Tesfaye Sherman MD Active ZITHROMAX 250 MG ORAL TABLET 2 po today, then 1 po q days 2-5 20 15/02/10 AZITHROMYCIN 23552126171 No Longer Active Tesfaye Sherman MD Active BACTRIM DS 800-160 MG ORAL TABLET 1 tab by mouth twice daily 201 03/03/23 TRIMETHOPRIM-SULFAMETHOXAZOLE 44611222977 No Longer Active Umer Sherman MD Active DIFLUCAN 150 MG ORAL TABLET 1 qd FLUCONAZOL E 50635108903 No Longer Active Kayla Cooper MD Active FLUTICASONE PROPIONATE 50 MCG/ACT NASAL SUSPENSION 1 spray each nostril twice daily FLUTICASONE PROPIONATE 65867052632 Active Umer Sherman MD Active LOVASTATIN 20 MG ORAL TABLET Take 1 tablet by mouth daily LOVASTATIN 96780717270 No Longer Active Tesfaye Sherman MD Acti ve MELOXICAM 7.5 MG ORAL TABLET 1 tablet by mouth daily 2 MELOXICAM 67799292657 No Longer Active Tesfaye Sherman MD Acti ve GABAPENTIN 300 MG ORAL CAPSULE Take two tablets by mouth every e vening GABAPENTIN 14468750713 No Longer Active Edith Burch MD A ctive GABAPENTIN 300 MG ORAL CAPSULE Take two tablets by mouth every e vening GABAPENTIN 300 MG ORAL CAPSULE 268381 GABAPENTIN I nactive MELOXICAM 7.5 MG ORAL TABLET 1 tablet by mouth daily 2 MELOXICAM 7.5 MG ORAL TABLET 495166 MELOXICAM Inactive LOVASTATIN 20 MG ORAL TABLET Take 1 tablet by mouth daily LOVASTATIN 20 MG ORAL TABLET 103139 LOVASTATIN Inactive DIFLUCAN 150 MG ORAL TABLET 1 qd DIFLUCAN 150 MG ORAL TABLET 818001 FLUCONAZOLE Inactive VITAMIN D3 2000 UNIT ORAL TABLET 1 daily, for vitamin D deficien cy VITAMIN D3 2000 UNIT ORAL TABLET CHOLECALCIFEROL Inactive AMOXICILLIN 500 MG ORAL CAPSULE 1 cap by mouth three times a day AMOXICILLIN 500 MG ORAL CAPSULE 078068 AMOXICILLIN Inactive BACTRIM DS 800-160 MG ORAL TABLET 1 tab by mouth twice daily X 10 DAYS BACTRIM DS 800-160 MG ORAL TABLET 120275 TRIMETHOPRIM-SULFAMETHOXAZOLE Inactive TRIMETHOPRIM 100 MG ORAL TABLET 1/2 qd 7 TRIMETHOPRIM 100 MG ORAL TABLET 318273 TRIMETHOPRIM Inactive CETIRIZINE HCL 5 MG ORAL TABLET Take 1 tablet by mouth daily CETIRIZINE HCL 5 MG ORAL TABLET 1748860 CETIRIZINE HCL Inactive PRAMIPEXOLE DIHYDROCHLORIDE 0.125 MG ORAL TABLET take 1 tablet po qhs for restless leg syndrome. PRAMIPEXOLE DIHYD ROCHLORIDE 0.125 MG ORAL TABLET 260317 PRAMIPEXOLE DIHYDROCHLORIDE Inactive MIRTAZAPINE 15 MG ORAL TABLET 1/2 tab by mouth at bedtime. 03/13 MIRTAZAPINE 15 MG ORAL TABLET 633872 MIRTAZAPINE In active DIFLUCAN 100 MG ORAL TABLET 1 tablet by mouth daily X 3 DAYS 201 04/09/01 DIFLUCAN 100 MG ORAL TABLET 484888 FLUCONAZOLE Inac tive DIFLUCAN 100 MG ORAL TABLET 1 tablet by mouth every other da y for 2 doses DIFLUCAN 100 MG ORAL TABLET 635846 FLUCONAZOLE Inactive CEFTIN 250 MG ORAL TABLET 1 tablet twice daily x 7 days CEFTIN 250 MG ORAL TABLET CEFUROXIME AXETIL Inactive CYMBALTA 30 MG ORAL CAPSULE DELAYED RELEASE PARTICLES 1 cap by mouth daily with 60mg CYMBALTA 30 MG ORAL CAPSULE DELAYED RELEASE PARTICLES 545163 DULOXETINE HCL Inactive CYMBALTA 60 MG ORAL CAPSULE DELAYED RELEASE PARTICLES Take 1 tablet by mouth daily CYMBALTA 60 MG ORAL CAPSULE DELAYED RELEA SE PARTICLES 607035 DULOXETINE HCL Inactive FOSAMAX 70 MG ORAL TABLET 1 po qweek. Take 30min prio r to first food/drink. Avoid lying down x 1 hour. FOSAMAX 70 MG ORAL TA BLET 167173 ALENDRONATE SODIUM Inactive DIFLUCAN 100 MG ORAL TABLET 1 tablet by mouth daily 19/08/26 DIFLUCAN 100 MG ORAL TABLET 573938 FLUCONAZOLE Inactive PREDNISONE 20 MG ORAL TABLET 1 tab twice daily for 3 d ay, then one daily for three days PREDNISONE 20 MG ORAL TABLET 098016 PREDNIS ONE Inactive PROAIR HFA 108 (90 BASE) MCG/ACT INHALATION AEROSOL SO LUTION 1 puff every 6 hours as needed PROAIR HFA 108 (90 B ASE) MCG/ACT INHALATION AEROSOL SOLUTION ALBUTEROL SULFATE Inactive MECLIZINE HCL 25 MG ORAL TABLET one tab po qday prn dizziness 20 17/09/06 MECLIZINE HCL 25 MG ORAL TABLET 871097 MECLIZINE HCL Inactive PREDNISONE 20 MG ORAL TABLET 1 tablet by mouth twice d aily for 3 days, then 1 tablet daily for 3 days PREDNISONE 20 MG ORAL TA BLET 501770 PREDNISONE Inactive DIFLUCAN 100 MG ORAL TABLET 1 tablet by mouth daily 20 20/06/06 DIFLUCAN 100 MG ORAL TABLET 852667 FLUCONAZOLE Inactive REPHRESH PRO-B ORAL CAPSULE 1 tablet daily REPHRESH PRO-B ORAL CAPSULE LACTOBACILLUS Inactive RED YEAST RICE 600 MG ORAL CAPSULE 1 pill by mouth daily RED YEAST RICE 600 MG ORAL CAPSULE 190160 RED YEAST RICE EXTRACT In active SUDAFED [...] daily 19/02/09 DIFLUCAN 100 MG ORAL TABLET 354354 FLUCONAZOLE Inactive DIFLUCAN 100 MG ORAL TABLET 1 tablet by mouth daily 19/02/09 DIFLUCAN 100 MG ORAL TABLET 274990 FLUCONAZOLE Inactive VENLAFAXINE HCL 75 MG ORAL TABLET 1 am 1/2 at noon 201 07/07/09 VENLAFAXINE HCL 75 MG ORAL TABLET 032656 VENLAFAXINE HCL Inacti ve GABAPENTIN 300 MG ORAL CAPSULE 1 po daily GABAPENTIN 300 MG ORAL CAPSULE 366885 GABAPENTIN Inactive SUDAFED 12 HOUR 120 MG ORAL TABLET EXTENDED RELEASE 12 HOUR 1 pill twice daily if needed for congestion SUDAFED 12 HOUR 120 MG ORAL TABLET EXTENDED RELEASE 12 HOUR PSEUDOEPHEDRINE HCL Inactive AMITRIPTYLINE HCL 10 MG ORAL TABLET 1 tablet nightly by mout h for neuropathy AMITRIPTYLINE HCL 10 MG ORAL TABLET 662607 AMITRIPTYLINE HCL Inactive AMITRIPTYLINE HCL 50 MG ORAL TABLET 1 po q hs for sleep AMITRIPTYLINE HCL 50 MG ORAL TABLET 846398 AMITRIPTYLINE HCL Inac tive PREDNISONE 20 MG ORAL TABLET 1 tab twice daily for 3 d ay, then one daily for three days PREDNISONE 20 MG ORAL TABLET 056572 PREDNIS ONE Inactive ROPINIROLE HCL 0.25 MG ORAL TABLET 1 TAB PO Q HS 05/31 ROPINIROLE HCL 0.25 MG ORAL TABLET 647006 ROPINIROLE HCL Inact trent ROPINIROLE HCL 0.5 MG ORAL TABLET 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 ROPINIROLE HCL 0.5 MG ORAL TABLET 823580 ROPINIR OLE HCL Inactive ROPINIROLE HCL 1 MG ORAL TABLET 1 tab po q hs ROPINIROLE HCL 1 MG ORAL TABLET 664594 ROPINIROLE HCL Inactive ROPINIROLE HCL 2 MG ORAL TABLET 1 po at hs 7 ROPINIROLE HCL 2 MG ORAL TABLET 032007 ROPINIROLE HCL Inactive MIRAPEX 0.125 MG ORAL TABLET 1 po nightly MIRAPEX 0.125 MG ORAL TABLET 656008 PRAMIPEXOLE DIHYDROCHLORIDE Inactive MIRAPEX 0.25 MG ORAL TABLET 1 tablet by mouth at night for r estless leg MIRAPEX 0.25 MG ORAL TABLET PRAMIPEXOLE D IHYDROCHLORIDE Inactive HYDROXYZINE HCL 25 MG ORAL TABLET 1 tab po at HS prn sleep 08/02 HYDROXYZINE HCL 25 MG ORAL TABLET 905203 HYDROXYZINE HC L Inactive DIFLUCAN 100 MG ORAL TABLET 1 tablet by mouth daily 21/08/28 DIFLUCAN 100 MG ORAL TABLET 306696 FLUCONAZOLE Inactive BACLOFEN 10 MG ORAL TABLET Take one tablet by mouth three times a day BACLOFEN 10 MG ORAL TABLET 004980 BACLOFEN Inact trent PREDNISONE 20 MG ORAL TABLET 1 tab twice daily for 3 d ay, then one daily for three days PREDNISONE 20 MG ORAL TABLET 253569 PREDNIS ONE Inactive UNISOM SLEEPMELTS 25 MG [...] 03/03/23 BACTRIM DS 800-160 MG ORAL TABLET 474937 TRIMETHOPRIM-SULFAMETHOXAZOLE Inactive ZITHROMAX 250 MG ORAL TABLET 2 po today, then 1 po q days 2-5 20 15/02/10 ZITHROMAX 250 MG ORAL TABLET 318672 AZITHROMYCIN Mayela ctive BACTRIM DS 800-160 MG [...] 20 19/03/05 DIFLUCAN 100 MG ORAL TABLET 128621 FLUCONAZOLE Inactive BACTRIM DS 800-160 MG ORAL TABLET 1 tab by mouth twice daily 201 05/10/28 BACTRIM DS 800-160 MG ORAL TABLET 19830105 TRIMETHOPRIM-SULFAMETHOXAZOLE Inactive AMOXICILLIN 500 MG ORAL CAPSULE 1 cap by mouth three times a day AMOXICILLIN 500 MG ORAL CAPSULE 644914 AMOXICILLIN Inactive ZITHROMAX 250 MG ORAL TABLET 2 po today, then 1 po q days 2-5 20 20/04/28 ZITHROMAX 250 MG ORAL TABLET 766524 AZITHROMYCIN Sondheimer ctive DIFLUCAN 100 MG ORAL TABLET 1 [...] 20 21/08/28 ZITHROMAX 250 MG ORAL TABLET 238913 AZITHROMYCIN S[place]heimer ctive FLUCONAZOLE 100 MG ORAL TABLET 1 [...] LIVING WILL ON FILE DURABLE POWER OF BRADDER FOR HEALTHCARE Vital Signs Date Name Value [...] Magnesium - Chemistry cholesterol, serum 196 mg/dL 040-063 0641/07/30 triglyceride, serum, fasting 86 mg/dL 30-200 HDL cholesterol, serum 41 mg/dL 32-60 LDL cholesterol, serum 138 mg/dL 0-130 sodium, serum 140 mmol/L 373-476 2022/07/30 carbon dioxide, venous blood 28.6 mmol/L 21.0-32 [...] 5.0-8.5 Encounters Code Encounter Date Provider Facility CPT-66073 [id number] Vst-Est Level IV 08:56:46 C BRIDGET Sherman MD [facility] CPT-77974 [id number] Vst-Est Level IV 10:36:10 C BRIDGET Sherman MD [facility] CPT-92851 [id number] Vst-Est Level IV 13:49:08 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 Mendy Stovallord [facility] CPT-15611 [id number] Vst-Est Level IV 11:39:[address] Tesfaye Sherman MD [facility] CPT-61866 [id number] Vst-Est Level IV 14:08:03 C BRIDGET Sherman MD [facility] CPT-32046 Level 3 Est. Patient 18:06:36 CDT Tesfaye pearson MD [facility] CPT-99776 [id number] Vst-Est Level IV 17:09:34 C BRIDGET Sherman MD [facility] CPT-36763 Level 3 Est. Patient 17:27:08 CDT León Bandar hernandez APRN [facility] CPT-92533 42586-Rkg Vst-Est Level IV 14:00:[address] Tesfaye Sherman MD [facility] CPT-24775 [id number] Vst-Est Level IV 19:27:[address] Tesfaye Sherman MD [facility] CPT-77845 [id number] Vst-Est Level IV 10:41:41 C BRIDGET Sherman MD [facility] CPT-46156 [id number] Vst-Est Level III 09:40:56 CDT Tesfaye Sherman MD [facility] CPT-41858 Level 4 Est. Patient 22:18:12 CDT Tesfaye pearson MD [facility] CPT-91253 Level 4 Est. Patient 14:44:33 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 Tesfaye pearson MD [facility] CPT-05905 Level 4 Est. Patient 13:55:29 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 Tesfaye pearson MD [facility] CPT-41185 Level 4 Est. Patient 17:07:34 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 Tesfaye pearson MD [facility] CPT-07055 Level 4 Est. Patient 13:56:54 CDT Tesfaye pearson MD [facility] CPT-41885 Level 4 Est. Patient 13:24:25 CDT Chelsea sanz APRN [facility] CPT-14045 Level 4 Est. Patient 09:14:56 CDT Tesfaye pearson MD [facility]-76907 Level 4 Est. Patient 18:40:25 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 Tesfaye pearson MD [facility]-84528 Level 4 Est. Patient 18:13:07 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 Tesfaye pearson MD [facility]-57032 Level 3 Est. Patient 10:46:32 CDT Rj cotto DO [facility]-76506 Level 4 Est. Patient 20:19:25 CDT Tesfaye pearson MD [facility]-70956 Level 3 Est. Patient 09:07:31 CDT Tesfaye pearson MD [facility] CPT-70407 Level 4 Est. Patient 13:12:56 CDT Tesfaye pearson MD [facility]-93579 Level 4 Est. Patient 21:24:55 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 Tesfaye pearson MD [facility] CPT-47240 Level 3 Est. Patient 13:45:04 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 Tesfaye pearson MD [facility] CPT-76413 Level 4 Est. Patient 13:50:45 CDT Tesfaye pearson MD [facility] CPT-64589 Level 3 Est. Patient 10:16:10 CDT Tesfaye pearson MD [facility] CPT-75207 Level 3 Est. Patient 16:36:07 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 Kayla jameson MD [facility]-72768 Level 4 Est. Patient 16:00:14 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 Tesfaye pearson MD [facility]-02421 Level 4 Est. Patient 11:02:24 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 Tesfaye pearson MD [facility] CPT-24219 Level 3 Est. Patient 20:21:43 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 Kayla jameson MD [facility] CPT-97036 Level 3 Est. Patient 13:27:28 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 Kayla jameson MD [facility] CPT-90490 Level 4 Est. Patient 15:57:17 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 Tesfaye pearson MD [facility] CPT-50058 Level 3 New Patient 13:25:47 CDT Tesfaye kidd MD [facility] CPT-30894 Level 3 New Patient 17:22:21 CDT J John angel MD [facility] Procedures Code Procedure Name Date Entry Date Standard Desc ription CPT-32997 Prv Med Est Pt 40-64yrs 09:01:58 CDT 03/09 CPT-G0439 Subsequent Annual Wellness Exam 11:25:51 CDT [id number] ([id number] 2P) Patient Reason Influenza immu nization not administered 13:25:19 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 CPT-94823 Bone Density - XRAY USE ONLY 15:21:33 CDT CPT-50408 Venipuncture Draw Fee 16:12:22 CDT CPT-G0439 Subsequent Annual Wellness Exam 18:06:36 CDT CPT-G0439 Subsequent Annual Wellness Exam 22:18:11 CDT CPT-16753 Bone Density - XRAY USE ONLY 11:43:58 CDT CPT-37351 Bone Density - XRAY USE ONLY 10:05:16 CDT CPT-29877 Prv Med New Pt 40-64 yrs 18:19:25 CDT 2016 CPT-62871 Foot, right, comp min 3V - XRAY USE ONLY 10:38:34 CDT CPT-G0439 Subsequent Annual Wellness Exam 13:55:04 CDT CPT-G0438 Initial Annual Wellness Exam 11:23:17 CD T CPT-J2930 Solu Medrol 125 mg (Methyl Prednisolone Sodium Succinate) 17:29:12 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 CPT-18181 Abx/Therapy Injection 17:29:11 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 CPT-J2930 Solu Medrol 125 mg (Methyl Prednisolone Sodium Succinate) 12:34:38 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 CPT-J3420 Vitamin B12 1000mcg (Cyanocobalamin) 09:12:55 CDT CPT-J3420 Vitamin B12 1000mcg (Cyanocobalamin) 16:28:06 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 CPT-29989 Venipuncture Draw Fee 08:39:53 CDT CPT-J3420 Vitamin B12 1000mcg (Cyanocobalamin) 08:46:22 CDT CPT-87005 Abx/Therapy Injection 08:46:22 CDT CPT-J3420 Vitamin B12 1000mcg (Cyanocobalamin) 08:41:26 CDT CPT-12750 Abx/Therapy Injection 08:41:26 CDT CPT-J3420 Vitamin B12 1000mcg (Cyanocobalamin) 08:57:15 CDT CPT-99114 Abx/Therapy Injection 08:57:15 CDT CPT-J3420 Vitamin B12 1000mcg (Cyanocobalamin) 10:59:03 CDT CPT-22158 Abx/Therapy Injection 10:59:03 CDT CPT-J3420 Vitamin B12 1000mcg (Cyanocobalamin) 15:05:39 CDT CPT-82317 Abx/Therapy Injection 15:05:39 CDT CPT-J3420 Vitamin B12 1000mcg (Cyanocobalamin) 13:50:45 CDT CPT-J3420 Vitamin B12 1000mcg (Cyanocobalamin) 08:48:55 CDT CPT-08016 Abx/Therapy Injection 08:48:55 CDT CPT-J3420 Vitamin B12 1000mcg (Cyanocobalamin) 09:14:54 CDT CPT-10200 Abx/Therapy Injection 09:14:54 CDT CPT-J3420 Vitamin B12 1000mcg (Cyanocobalamin) 09:06:06 CDT CPT-24437 Abx/Therapy Injection 09:06:06 CDT CPT-J3420 Vitamin B12 1000mcg (Cyanocobalamin) 09:49:14 CDT CPT-62840 Abx/Therapy Injection 09:49:14 CDT CPT-J3420 Vitamin B12 1000mcg (Cyanocobalamin) 09:10:30 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 CPT-59968 Abx/Therapy Injection 09:10:30 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 CPT-J3420 Vitamin B12 1000mcg (Cyanocobalamin) 09:11:07 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 CPT-62536 Abx/Therapy Injection 09:11:07 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 CPT-J3420 Vitamin B12 1000mcg (Cyanocobalamin) 09:57:03 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 CPT-95815 Abx/Therapy Injection 09:57:03 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 CPT-J3420 Vitamin B12 1000mcg (Cyanocobalamin) 09:23:21 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 CPT-21480 Abx/Therapy Injection 09:23:21 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 CPT-64946 Urine Dip (Floor Use Only) 20:21:44 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 201 02/12/11 CPT-01714 UA Dip Auto (Floor Use Only) 10:04:39 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 2 CPT-59385 Urine Dip (Floor Use Only) 13:27:28 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 201 02/12/01 CPT-55060 Bladder Scan 13:27:28 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 CPT-37595 Abd single AP View 14:30:51 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 CPT-OV Office Visit 10:15:43 CDT CPT-23064 Urine Dip (Floor Use Only) 17:22:21 CDT 201 02/09/02 CPT-01144 Bladder Scan 17:22:21 CDT
--- OUTSIDE RECORDS SUMMARY | 2020-05-05 11:59 | XMS REPORT | Clinical Summary ---
Author Author Talon, Jeri Wood Organization [employer] Address Unknown Phone Unavailable Allergies, Adverse Reactions, [...] and unspecified hyperlipidemia Mixed hyperlipidemia 272.4 Active Tesfyae villar MD Other and unspecified hyperlipidemia ANXIETY [...] between 19-24, adult BMI 25-25.9 Refinement Tesfaye Sheramn MD Body Mass Index between 19-24, adult [...] Tesfaye Sherman MD Dysuria High risk meds protection specialist use V58.6 Active Tesfaye Sherman MD Long-term (current) drug use Yeast infection 112.9 Inactive Tesfaye Sherman MD Candidiasis of unspecified site Upper respiratory infection 465.9 Inactive Tesfaye Sherman MD Acute upper respiratory infections of un specified site Lower extremity edema, bilateral 782.3 Active 201 07/07/09 León Kodi IMPROVEMENT LEAD Edema Peripheral neuropathy 356.9 Active Tesfaye lamb [...] by mouth d aily prn swelling FUROSEMIDE 35218267738 Active Tesfaye Sherman MD Active FENOFIBRATE 145 MG ORAL TABLET Take 1 tablet by mouth once daily 20 23/12/19 FENOFIBRATE 65563051302 Active Tesfaye Sherman MD Active PRAMIPEXOLE DIHYDROCHLORIDE 0.75 MG ORAL TABLET take 1 tab po qhs for restless leg syndrome. PRAMIPEXOLE DIHYDROCHLORIDE 88020323106 Acti ve Tesfaye Sherman MD Active DIFLUCAN 100 MG ORAL TABLET 1 tablet by mouth daily 20 23/12/05 FLUCONAZOLE 57232547923 No Longer Active Tesfaye Sherman MD Acti ve [facility] NIACIN FLUSH FREE 400-100 MG ORAL CAPSULE 1 daily NIACIN-INOSITOL 22633020217 No Longer Active Tesfaye Sherman MD A ctive FISH OIL 1000 MG ORAL CAPSULE DELAYED RELEASE 1 pill b y mouth daily for cholesterol OMEGA-3 FATTY ACIDS 50956304909 No Longe r Active Tesfaye Sherman MD Active UNISOM SLEEPMELTS 25 MG ORAL TABLET DISINTEGRATING 1.5 po q hs DIPHENHYDRAMINE HCL (SLEEP) 54954372695 No Longer Active Venkata Sherman MD Active PREDNISONE 20 MG ORAL TABLET 1 tab twice daily for 3 d ay, then one daily for three days PREDNISONE 60650442506 No Longer Active Tesfaye Sherman MD Active BACLOFEN 10 MG ORAL TABLET Take one tablet by mouth three times a day BACLOFEN 96942717250 No Longer Active Tesfaye Sherman MD Active LIDOCAINE 4 % EXTERNAL CREAM Apply to back prn pain LIDOCAINE 52176728996 Active Tesfaye Sherman MD Active TIZANIDINE HCL 2 MG ORAL TABLET 2 Mg in the AM and 6mg q hs 07/05 TIZANIDINE HCL 54162528823 Active Tesfaye Sherman MD Active HYDROXYZINE HCL 25 MG TABS TAKE 1 TABLET BY MOUTH AT B EDTIME NEEDED FOR SLEEP HYDROXYZINE HCL 77884340294 Active JOSHUA Lindsay Active FLUCONAZOLE 100 MG ORAL TABLET 1 by mouth daily for yeast infect ion FLUCONAZOLE 87147845639 No Longer Active Laurence Dominguez Acti ve ZITHROMAX 250 MG ORAL TABLET 2 po today, then 1 po q days 2-5 20 21/08/28 AZITHROMYCIN 18624901947 No Longer Active Tesfaye Sherman MD Active DIFLUCAN 100 MG ORAL TABLET 1 tablet by mouth daily 20 21/08/28 FLUCONAZOLE 90351182775 No Longer Active Tesfaye Sherman MD Acti ve HYDROXYZINE HCL 25 MG ORAL TABLET 1 tab po at HS prn sleep 08/02 HYDROXYZINE HCL 82706466118 No Longer Active Tesfaye Sherman MD Active MIRAPEX 0.5 MG ORAL TABLET 1 tablet at night for restless leg. 2018 PRAMIPEXOLE DIHYDROCHLORIDE 76769271691 Active Laurenceyohana Lopezida Active MIRAPEX 0.25 MG ORAL TABLET 1 tablet by mouth at night for r estless leg PRAMIPEXOLE DIHYDROCHLORIDE 48424644764 No Longer Act trent Laurence Dominguez Active MIRAPEX 0.125 MG ORAL TABLET 1 po nightly PRAMIPEXOLE DIHYDROCHLORIDE 57995834981 No Longer Active Laurence Dominguez Active ROPINIROLE HCL 2 MG ORAL TABLET 1 po at hs ROPI NIROLE HCL 15347778832 No Longer Active Laurenceyohana Lopezida Active ROPINIROLE HCL 1 MG ORAL TABLET 1 tab po q hs ROPINIROLE HCL 06645987593 No Longer Active Laurenceyohana Dominguez Active ROPINIROLE HCL 0.5 MG ORAL TABLET 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 ROPINIROLE HCL 30818897790 No Longer Active MARCUS Panchal Active ROPINIROLE HCL 0.25 MG ORAL TABLET 1 TAB PO Q HS 05/31 ROPINIROLE HCL 18987029614 No Longer Active Tesfaye Sherman MD Ac tive PREDNISONE 20 MG ORAL TABLET 1 tab twice daily for 3 d ay, then one daily for three days PREDNISONE 44289317474 No Longer Active Tesfaye Sherman MD Active AMITRIPTYLINE HCL 50 MG ORAL TABLET 1 po q hs for sleep AMITRIPTYLINE HCL 90946512855 No Longer Active Tesfaye Sherman MD Active AMITRIPTYLINE HCL 10 MG ORAL TABLET 1 tablet nightly by mout h for neuropathy AMITRIPTYLINE HCL 44408016025 No Longer Active MARCUS Stapleton Active DIFLUCAN 100 MG ORAL TABLET 1 tablet by mouth daily 21/03/11 FLUCONAZOLE 60174031060 No Longer Active Tesfaye Sherman MD Acti ve BACTRIM DS 800-160 MG ORAL TABLET 1 tab by mouth twice daily 201 07/08/06 TRIMETHOPRIM-SULFAMETHOXAZOLE 97372524148 No Longer Active Umer Sherman MD Active CLARITIN 10 MG ORAL TABLET Take one by mouth daily LORATADINE 81599989027 Active Tesfaye Sherman MD Active SUDAFED 12 HOUR 120 MG ORAL TABLET EXTENDED RELEASE 12 HOUR 1 pill twice daily if needed for congestion PSEUDOEPHEDRINE HCL 675043037 13 No Longer Active Tesfaye Sherman MD Active GABAPENTIN 300 MG ORAL CAPSULE 1 po daily GABAP ENTIN 27702604231 No Longer Active Tesfaye Sherman MD Active HYDROCHLOROTHIAZIDE 12.5 MG ORAL CAPSULE 1 pill by mough daily 2 HYDROCHLOROTHIAZIDE 72230244774 No Longer Active León Mariee APRN Active VENLAFAXINE HCL 75 MG ORAL TABLET 1 am 1/2 at noon 201 07/07/09 VENLAFAXINE HCL 68614779067 No Longer Active León Mariee APRN Act trent DIFLUCAN 100 MG ORAL TABLET 1 tablet by mouth daily 19/02/09 FLUCONAZOLE 96684551158 No Longer Active León Kodi IMPROVEMENT LEAD Active DIFLUCAN 100 MG ORAL TABLET 1 tablet by mouth daily 19/02/09 FLUCONAZOLE 63961649861 No Longer Active Leónkash Mariee APRN Active OXYCODONE-ACETAMINOPHEN 5-325 MG ORAL TABLET Take one tablet by mouth every 6 hours 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 Use sparingly OXYCODONE-ACETAMINOPHEN 45424449561 Active Tesfaye villar MD Active CLONAZEPAM 0.5 MG ORAL TABLET Take 1/2 qam, and 1/2 qpm CLONAZEPAM 14425433370 Active Tesfaye Sherman MD Active PRELIEF 340 (65-50) MG (CA-P) ORAL TABLET CALCIUM GLYCEROPHOSPHATE 21271796792 No Longer Active Tesfaye Sherman MD Active SUDAFED 24 HOUR 240 MG ORAL TABLET EXTENDED RELEASE 24 HOUR 1 tab po daily PSEUDOEPHEDRINE HCL 13004990138 No Longer Active Raul Sherman MD Active RED YEAST RICE 600 MG ORAL CAPSULE 1 pill by mouth daily RED YEAST RICE EXTRACT 31551547007 No Longer Active Tesfaye Sherman MD Active REPHRESH PRO-B ORAL CAPSULE 1 tablet daily LACT OBACILLUS 04018889319 No Longer Active Tesfaye Sherman MD Active ABILIFY 2 MG ORAL TABLET 1 by mouth daily. MARIA ELENA PIPRAZOLE 42828601747 Active Tesfaye Sherman MD Active CYMBALTA 60 MG ORAL CAPSULE DELAYED RELEASE PARTICLES 1 cap by mouth daily for pain DULOXETINE HCL 58691202252 Active MARCUS Lindsay Active DIFLUCAN 100 MG ORAL TABLET 1 tablet by mouth daily 20 20/06/06 FLUCONAZOLE 07530188732 No Longer Active Tesfaye Sherman MD Acti ve PREDNISONE 20 MG ORAL TABLET 1 tablet by mouth twice d aily for 3 days, then 1 tablet daily for 3 days PREDNISONE 32439943417 No L onger Active Tesfaye Sherman MD Active BACTRIM DS 800-160 MG ORAL TABLET 1 tab by mouth twice daily 201 06/09/02 TRIMETHOPRIM-SULFAMETHOXAZOLE 18509603736 No Longer Active Katarina masterskatarina Lopezduyen Active DIFLUCAN 100 MG ORAL TABLET 1 tablet by mouth daily 20 20/05/01 FLUCONAZOLE 25800089681 No Longer Active Tesfaye Sherman MD Acti ve ZITHROMAX 250 MG ORAL TABLET 2 po today, then 1 po q days 2-5 20 20/04/28 AZITHROMYCIN 55795108207 No Longer Active Tesfaye Sherman MD Active MECLIZINE HCL 25 MG ORAL TABLET one tab po qday prn dizziness 20 17/09/06 MECLIZINE HCL 25145374782 No Longer Active Tesfaye Sherman MD Active PROAIR HFA 108 (90 BASE) MCG/ACT INHALATION AEROSOL SO LUTION 1 puff every 6 hours as needed ALBUTEROL SULFATE 36968477740 No Long er Active Tesfaye Sherman MD Active PREDNISONE 20 MG ORAL TABLET 1 tab twice daily for 3 d ay, then one daily for three days PREDNISONE 21938518911 No Longer Active Tsefaye Sherman MD Active MECLIZINE HCL 25 MG ORAL TABLET one 4 times a day as needed for dizziness MECLIZINE HCL 72249631609 Active Tesfaye Sherman MD Active AMOXICILLIN 500 MG ORAL CAPSULE 1 cap by mouth three times a day AMOXICILLIN 14818620077 No Longer Active Laurence Dominguez Acti ve DIFLUCAN 100 MG ORAL TABLET 1 tablet by mouth daily 20 19/08/26 FLUCONAZOLE 50700774938 No Longer Active Tesfaye Sherman MD Acti ve BACTRIM DS 800-160 MG ORAL TABLET 1 tab by mouth twice daily 201 05/10/28 TRIMETHOPRIM-SULFAMETHOXAZOLE 61594604208 No Longer Active Katarina Dominguez Active FOSAMAX 70 MG ORAL TABLET 1 po qweek. Take 30min prio r to first food/drink. Avoid lying down x 1 hour. ALENDRONATE SODIUM 44127068 144 No Longer Active Laurence Dominguez Active CYMBALTA 60 MG ORAL CAPSULE DELAYED RELEASE PARTICLES Take 1 tablet by mouth daily DULOXETINE HCL 78716716369 No Longer Active Edith Burch MD Active CYMBALTA 30 MG ORAL CAPSULE DELAYED RELEASE PARTICLES 1 cap by mouth daily with 60mg DULOXETINE HCL 29392433718 No Longer Active Jordan Burch MD Active DIFLUCAN 100 MG ORAL TABLET 1 tablet by mouth daily 20 19/03/05 FLUCONAZOLE 25563088289 No Longer Active Tesfaye Sherman MD Acti ve BACTRIM DS 800-160 MG ORAL TABLET 1 tab by mouth twice daily 201 05/06/28 TRIMETHOPRIM-SULFAMETHOXAZOLE 09165914487 No Longer Active Umer Sherman MD Active BACTRIM DS 800-160 MG ORAL TABLET 1 tab by mouth twice daily 201 05/04/15 TRIMETHOPRIM-SULFAMETHOXAZOLE 79621185640 No Longer Active Umer Sherman MD Active DIFLUCAN 150 MG ORAL TABLET 1 tablet by mouth daily 18/09/20 FLUCONAZOLE 86098357703 No Longer Active Tesfaye Sherman MD Acti ve BACTRIM DS 800-160 MG ORAL TABLET 1 tab by mouth twice daily 201 04/13/17 TRIMETHOPRIM-SULFAMETHOXAZOLE 69277812876 No Longer Active D patricia Sherman MD Active CEFTIN 250 MG ORAL TABLET 1 tablet twice daily x 7 days CEFUROXIME AXETIL 45535016847 No Longer Active Tesfaye Sherman MD Active DIFLUCAN 100 MG ORAL TABLET 1 tablet by mouth every other da y for 2 doses FLUCONAZOLE 36316964768 No Longer Active Tesfaye barron MD Active DIFLUCAN 100 MG ORAL TABLET 1 tablet by mouth daily X 3 DAYS 201 04/09/01 FLUCONAZOLE 28268082933 No Longer Active Rj Moss DO Ac tive MIRTAZAPINE 15 MG ORAL TABLET 1/2 tab by mouth at bedtime. 03/13 MIRTAZAPINE 87725888225 No Longer Active Tesfaye Sherman MD Active BACTRIM DS 800-160 MG ORAL TABLET 1 tab by mouth twice daily 201 04/09/01 TRIMETHOPRIM-SULFAMETHOXAZOLE 28111641881 No Longer Active D patricia Sherman MD Active PRAMIPEXOLE DIHYDROCHLORIDE 0.125 MG ORAL TABLET take 1 tablet po qhs for restless leg syndrome. PRAMIPEXOLE DIHYDROCHLORI DE 36071954000 No Longer Active Tesfaye Sherman MD Active MAGNESIUM 400 MG ORAL TABLET 1 tab po daily MAGNE SIUM 29280305118 Active Chelsea Cardenas APRN Active CETIRIZINE HCL 5 MG ORAL TABLET Take 1 tablet by mouth daily CETIRIZINE HCL 75977721288 No Longer Active Chelsea Cardenas APRN Activ e TRIMETHOPRIM 100 MG ORAL TABLET 1/2 qd TRIM ETHOPRIM 67190220274 No Longer Active Chelsea Cardenas APRN Active BACTRIM DS 800-160 MG ORAL TABLET 1 tab by mouth twice daily 201 04/04/11 TRIMETHOPRIM-SULFAMETHOXAZOLE 06949903450 No Longer Active D avid M [place] MD Active BACTRIM DS 800-160 MG ORAL TABLET 1 tab by mouth twice daily X 10 DAYS TRIMETHOPRIM-SULFAMETHOXAZOLE 72433324438 No Longer Active Tesfaye Sherman MD Active AMOXICILLIN 500 MG ORAL CAPSULE 1 cap by mouth three times a day AMOXICILLIN 23507766188 No Longer Active Adriana Arredondo, [facility] A ctive B-12 1000 MCG ORAL LOZENGE 1 tab po daily CYANO COBALAMIN 41701525048 Active Tesfaye Sherman MD Active VITAMIN D3 2000 UNIT ORAL TABLET 1 daily, for vitamin D deficien cy CHOLECALCIFEROL 33483436914 No Longer Active Tesfaye Sherman MD Active ZITHROMAX 250 MG ORAL TABLET 2 po today, then 1 po q days 2-5 20 15/02/10 AZITHROMYCIN 12957301719 No Longer Active Tesfaye Sherman MD Active BACTRIM DS 800-160 MG ORAL TABLET 1 tab by mouth twice daily 201 03/03/23 TRIMETHOPRIM-SULFAMETHOXAZOLE 13854884062 No Longer Active Umer Sherman MD Active DIFLUCAN 150 MG ORAL TABLET 1 qd FLUCONAZOL E 71196414708 No Longer Active Kayla Cooper MD Active FLUTICASONE PROPIONATE 50 MCG/ACT NASAL SUSPENSION 1 spray each nostril twice daily FLUTICASONE PROPIONATE 33014230475 Active Umer Sherman MD Active LOVASTATIN 20 MG ORAL TABLET Take 1 tablet by mouth daily LOVASTATIN 36129879000 No Longer Active Tesfaye Sherman MD Acti ve MELOXICAM 7.5 MG ORAL TABLET 1 tablet by mouth daily 2 MELOXICAM 56804661673 No Longer Active Tesfaye Sherman MD Acti ve GABAPENTIN 300 MG ORAL CAPSULE Take two tablets by mouth every e vening GABAPENTIN 16064342214 No Longer Active Edith Burch MD A ctive GABAPENTIN 300 MG ORAL CAPSULE Take two tablets by mouth every e vening GABAPENTIN 300 MG ORAL CAPSULE 983391 GABAPENTIN I nactive MELOXICAM 7.5 MG ORAL TABLET 1 tablet by mouth daily 2 MELOXICAM 7.5 MG ORAL TABLET 208478 MELOXICAM Inactive LOVASTATIN 20 MG ORAL TABLET Take 1 tablet by mouth daily LOVASTATIN 20 MG ORAL TABLET 938983 LOVASTATIN Inactive DIFLUCAN 150 MG ORAL TABLET 1 qd DIFLUCAN 150 MG ORAL TABLET 685126 FLUCONAZOLE Inactive VITAMIN D3 2000 UNIT ORAL TABLET 1 daily, for vitamin D deficien cy VITAMIN D3 2000 UNIT ORAL TABLET CHOLECALCIFEROL Inactive AMOXICILLIN 500 MG ORAL CAPSULE 1 cap by mouth three times a day AMOXICILLIN 500 MG ORAL CAPSULE 046562 AMOXICILLIN Inactive BACTRIM DS 800-160 MG ORAL TABLET 1 tab by mouth twice daily X 10 DAYS BACTRIM DS 800-160 MG ORAL TABLET 370364 TRIMETHOPRIM-SULFAMETHOXAZOLE Inactive TRIMETHOPRIM 100 MG ORAL TABLET 1/2 qd 7 TRIMETHOPRIM 100 MG ORAL TABLET 035734 TRIMETHOPRIM Inactive CETIRIZINE HCL 5 MG ORAL TABLET Take 1 tablet by mouth daily CETIRIZINE HCL 5 MG ORAL TABLET 7204824 CETIRIZINE HCL Inactive PRAMIPEXOLE DIHYDROCHLORIDE 0.125 MG ORAL TABLET take 1 tablet po qhs for restless leg syndrome. PRAMIPEXOLE DIHYD ROCHLORIDE 0.125 MG ORAL TABLET 697364 PRAMIPEXOLE DIHYDROCHLORIDE Inactive MIRTAZAPINE 15 MG ORAL TABLET 1/2 tab by mouth at bedtime. 03/13 MIRTAZAPINE 15 MG ORAL TABLET 787835 MIRTAZAPINE In active DIFLUCAN 100 MG ORAL TABLET 1 tablet by mouth daily X 3 DAYS 201 04/09/01 DIFLUCAN 100 MG ORAL TABLET 658669 FLUCONAZOLE Inac tive DIFLUCAN 100 MG ORAL TABLET 1 tablet by mouth every other da y for 2 doses DIFLUCAN 100 MG ORAL TABLET 745324 FLUCONAZOLE Inactive CEFTIN 250 MG ORAL TABLET 1 tablet twice daily x 7 days CEFTIN 250 MG ORAL TABLET CEFUROXIME AXETIL Inactive CYMBALTA 30 MG ORAL CAPSULE DELAYED RELEASE PARTICLES 1 cap by mouth daily with 60mg CYMBALTA 30 MG ORAL CAPSULE DELAYED RELEASE PARTICLES 865120 DULOXETINE HCL Inactive CYMBALTA 60 MG ORAL CAPSULE DELAYED RELEASE PARTICLES Take 1 tablet by mouth daily CYMBALTA 60 MG ORAL CAPSULE DELAYED RELEA SE PARTICLES 990482 DULOXETINE HCL Inactive FOSAMAX 70 MG ORAL TABLET 1 po qweek. Take 30min prio r to first food/drink. Avoid lying down x 1 hour. FOSAMAX 70 MG ORAL TA BLET 206271 ALENDRONATE SODIUM Inactive DIFLUCAN 100 MG ORAL TABLET 1 tablet by mouth daily 19/08/26 DIFLUCAN 100 MG ORAL TABLET 953151 FLUCONAZOLE Inactive PREDNISONE 20 MG ORAL TABLET 1 tab twice daily for 3 d ay, then one daily for three days PREDNISONE 20 MG ORAL TABLET 506439 PREDNIS ONE Inactive PROAIR HFA 108 (90 BASE) MCG/ACT INHALATION AEROSOL SO LUTION 1 puff every 6 hours as needed PROAIR HFA 108 (90 B ASE) MCG/ACT INHALATION AEROSOL SOLUTION ALBUTEROL SULFATE Inactive MECLIZINE HCL 25 MG ORAL TABLET one tab po qday prn dizziness 20 17/09/06 MECLIZINE HCL 25 MG ORAL TABLET 268712 MECLIZINE HCL Inactive PREDNISONE 20 MG ORAL TABLET 1 tablet by mouth twice d aily for 3 days, then 1 tablet daily for 3 days PREDNISONE 20 MG ORAL TA BLET 279646 PREDNISONE Inactive DIFLUCAN 100 MG ORAL TABLET 1 tablet by mouth daily 20 20/06/06 DIFLUCAN 100 MG ORAL TABLET 906587 FLUCONAZOLE Inactive REPHRESH PRO-B ORAL CAPSULE 1 tablet daily REPHRESH PRO-B ORAL CAPSULE LACTOBACILLUS Inactive RED YEAST RICE 600 MG ORAL CAPSULE 1 pill by mouth daily RED YEAST RICE 600 MG ORAL CAPSULE 493958 RED YEAST RICE EXTRACT In active SUDAFED [...] daily 19/02/09 DIFLUCAN 100 MG ORAL TABLET 501440 FLUCONAZOLE Inactive DIFLUCAN 100 MG ORAL TABLET 1 tablet by mouth daily 19/02/09 DIFLUCAN 100 MG ORAL TABLET 912644 FLUCONAZOLE Inactive VENLAFAXINE HCL 75 MG ORAL TABLET 1 am 1/2 at noon 201 07/07/09 VENLAFAXINE HCL 75 MG ORAL TABLET 087040 VENLAFAXINE HCL Inacti ve GABAPENTIN 300 MG ORAL CAPSULE 1 po daily GABAPENTIN 300 MG ORAL CAPSULE 229930 GABAPENTIN Inactive SUDAFED 12 HOUR 120 MG ORAL TABLET EXTENDED RELEASE 12 HOUR 1 pill twice daily if needed for congestion SUDAFED 12 HOUR 120 MG ORAL TABLET EXTENDED RELEASE 12 HOUR PSEUDOEPHEDRINE HCL Inactive AMITRIPTYLINE HCL 10 MG ORAL TABLET 1 tablet nightly by mout h for neuropathy AMITRIPTYLINE HCL 10 MG ORAL TABLET 926975 AMITRIPTYLINE HCL Inactive AMITRIPTYLINE HCL 50 MG ORAL TABLET 1 po q hs for sleep AMITRIPTYLINE HCL 50 MG ORAL TABLET 978031 AMITRIPTYLINE HCL Inac tive PREDNISONE 20 MG ORAL TABLET 1 tab twice daily for 3 d ay, then one daily for three days PREDNISONE 20 MG ORAL TABLET 682694 PREDNIS ONE Inactive ROPINIROLE HCL 0.25 MG ORAL TABLET 1 TAB PO Q HS 05/31 ROPINIROLE HCL 0.25 MG ORAL TABLET 534434 ROPINIROLE HCL Inact trent ROPINIROLE HCL 0.5 MG ORAL TABLET 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 ROPINIROLE HCL 0.5 MG ORAL TABLET 994057 ROPINIR OLE HCL Inactive ROPINIROLE HCL 1 MG ORAL TABLET 1 tab po q hs ROPINIROLE HCL 1 MG ORAL TABLET 401734 ROPINIROLE HCL Inactive ROPINIROLE HCL 2 MG ORAL TABLET 1 po at hs 7 ROPINIROLE HCL 2 MG ORAL TABLET 997683 ROPINIROLE HCL Inactive MIRAPEX 0.125 MG ORAL TABLET 1 po nightly MIRAPEX 0.125 MG ORAL TABLET 905414 PRAMIPEXOLE DIHYDROCHLORIDE Inactive MIRAPEX 0.25 MG ORAL TABLET 1 tablet by mouth at night for r estless leg MIRAPEX 0.25 MG ORAL TABLET PRAMIPEXOLE D IHYDROCHLORIDE Inactive HYDROXYZINE HCL 25 MG ORAL TABLET 1 tab po at HS prn sleep 08/02 HYDROXYZINE HCL 25 MG ORAL TABLET 661284 HYDROXYZINE HC L Inactive DIFLUCAN 100 MG ORAL TABLET 1 tablet by mouth daily 21/08/28 DIFLUCAN 100 MG ORAL TABLET 371633 FLUCONAZOLE Inactive BACLOFEN 10 MG ORAL TABLET Take one tablet by mouth three times a day BACLOFEN 10 MG ORAL TABLET 197185 BACLOFEN Inact trent PREDNISONE 20 MG ORAL TABLET 1 tab twice daily for 3 d ay, then one daily for three days PREDNISONE 20 MG ORAL TABLET 040358 PREDNIS ONE Inactive UNISOM SLEEPMELTS 25 MG [...] 03/03/23 BACTRIM DS 800-160 MG ORAL TABLET 206386 TRIMETHOPRIM-SULFAMETHOXAZOLE Inactive ZITHROMAX 250 MG ORAL TABLET 2 po today, then 1 po q days 2-5 20 15/02/10 ZITHROMAX 250 MG ORAL TABLET 058949 AZITHROMYCIN [place] ctive BACTRIM DS 800-160 MG ORAL TABLET [...] 20 19/03/05 DIFLUCAN 100 MG ORAL TABLET 248721 FLUCONAZOLE Inactive BACTRIM DS 800-160 MG ORAL TABLET 1 tab by mouth twice daily 201 05/10/28 BACTRIM DS 800-160 MG ORAL TABLET 19830105 TRIMETHOPRIM-SULFAMETHOXAZOLE Inactive AMOXICILLIN 500 MG ORAL CAPSULE 1 cap by mouth three times a day AMOXICILLIN 500 MG ORAL CAPSULE 344755 AMOXICILLIN Inactive ZITHROMAX 250 MG ORAL TABLET 2 po today, then 1 po q days 2-5 20 20/04/28 ZITHROMAX 250 MG ORAL TABLET 740227 AZITHROMYCIN Mayela ctive DIFLUCAN 100 MG ORAL [...] 20 21/08/28 ZITHROMAX 250 MG ORAL TABLET 603484 AZITHROMYCIN [place] ctive FLUCONAZOLE 100 MG ORAL TABLET 1 [...] LIVING WILL ON FILE DURABLE POWER OF MANAGER [employer]ACLE FOR HEALTHCARE Vital Signs Date Name Value [...] Magnesium - Chemistry cholesterol, serum 196 mg/dL 685-062 3993/07/30 triglyceride, serum, fasting 86 mg/dL 30-200 HDL cholesterol, serum 41 mg/dL 32-60 LDL cholesterol, serum 138 mg/dL 0-130 sodium, serum 140 mmol/L 195-671 7806/07/30 carbon dioxide, venous blood 28.6 mmol/L 21.0-32 [...] 5.0-8.5 Encounters Code Encounter Date Provider Facility CPT-92801 [id number] Vst-Est Level IV 08:56:46 C BRIDGET Sherman MD [facility] CPT-16910 [id number] Vst-Est Level IV 10:36:10 C BRIDGET Sherman MD [facility] CPT-02299 [id number] Vst-Est Level IV 13:49:08 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 Mendy Stovallord [facility] CPT-64578 [id number] Vst-Est Level IV 11:39:[address] Tesfaye Sherman MD [facility] CPT-66633 [id number] Vst-Est Level IV 14:08:03 C BRIDGET Sherman MD [facility] CPT-73635 Level 3 Est. Patient 18:06:36 CDT Tesfaye pearson MD [facility] CPT-03052 [id number] Vst-Est Level IV 17:09:34 C BRIDGET Sherman MD [facility] CPT-14955 Level 3 Est. Patient 17:27:08 CDT León Bandar hernandez APRN [facility] CPT-52533 [id number] Vst-Est Level IV 14:00:[address] Tesfaye Sherman MD [facility] CPT-61490 [id number] Vst-Est Level IV 19:27:[address] Tesfaye Sherman MD [facility] CPT-18589 [id number] Vst-Est Level IV 10:41:41 C BRIDGET Sherman MD [facility] CPT-14375 [id number] Vst-Est Level III 09:40:56 CDT Tesfaye Sherman MD [facility] CPT-48145 Level 4 Est. Patient 22:18:12 CDT Tesfaye pearson MD [facility] CPT-92270 Level 4 Est. Patient 14:44:33 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 Tesfaye pearson MD [facility] CPT-95068 Level 4 Est. Patient 13:55:29 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 Tesfaye pearson MD [facility] CPT-75750 Level 4 Est. Patient 17:07:34 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 Tesfaye pearson MD [facility] CPT-79697 Level 4 Est. Patient 13:56:54 CDT Tesfaye pearson MD [facility] CPT-57072 Level 4 Est. Patient 13:24:25 CDT Chelsea sanz APRN [facility] CPT-33116 Level 4 Est. Patient 09:14:56 CDT Tesfaye pearson MD [facility]-19471 Level 4 Est. Patient 18:40:25 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 Tesfaye pearson MD [facility]-70792 Level 4 Est. Patient 18:13:07 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 Tesfaye pearson MD [facility]-99342 Level 3 Est. Patient 10:46:32 CDT Rj cotto DO [facility]-62637 Level 4 Est. Patient 20:19:25 CDT Tesfaye pearson MD [facility]-93478 Level 3 Est. Patient 09:07:31 CDT Tesfaye pearson MD [facility] CPT-01201 Level 4 Est. Patient 13:12:56 CDT Tesfaye pearson MD [facility]-78995 Level 4 Est. Patient 21:24:55 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 Tesfaye pearson MD [facility] CPT-82145 Level 3 Est. Patient 13:45:04 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 Tesfaye pearson MD [facility] CPT-67021 Level 4 Est. Patient 13:50:45 CDT Tesfaye pearson MD [facility] CPT-33963 Level 3 Est. Patient 10:16:10 CDT Tesfaye pearson MD [facility] CPT-81079 Level 3 Est. Patient 16:36:07 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 Kayla jameson MD [facility]-00792 Level 4 Est. Patient 16:00:14 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 Tesfaye pearson MD [facility]-04725 Level 4 Est. Patient 11:02:24 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 Tesfaye pearson MD [facility] CPT-24790 Level 3 Est. Patient 20:21:43 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 Kayla jameson MD [facility] CPT-53000 Level 3 Est. Patient 13:27:28 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 Kayla jameson MD [facility] CPT-47778 Level 4 Est. Patient 15:57:17 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 Tesfaye pearson MD [facility] CPT-95998 Level 3 New Patient 13:25:47 CDT Tesfaye kidd MD [facility] CPT-50168 Level 3 New Patient 17:22:21 CDT J John angel MD [facility] Procedures Code Procedure Name Date Entry Date Standard Desc ription CPT-07436 Prv Med Est Pt 40-64yrs 09:01:58 CDT 03/09 CPT-G0439 Subsequent Annual Wellness Exam 11:25:51 CDT [id number] ([id number] 2P) Patient Reason Influenza immu nization not administered 13:25:19 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 CPT-84589 Bone Density - XRAY USE ONLY 15:21:33 CDT CPT-28528 Venipuncture Draw Fee 16:12:22 CDT CPT-G0439 Subsequent Annual Wellness Exam 18:06:36 CDT CPT-G0439 Subsequent Annual Wellness Exam 22:18:11 CDT CPT-51683 Bone Density - XRAY USE ONLY 11:43:58 CDT CPT-62928 Bone Density - XRAY USE ONLY 10:05:16 CDT CPT-71248 Prv Med New Pt 40-64 yrs 18:19:25 CDT 2016 CPT-20649 Foot, right, comp min 3V - XRAY USE ONLY 10:38:34 CDT CPT-G0439 Subsequent Annual Wellness Exam 13:55:04 CDT CPT-G0438 Initial Annual Wellness Exam 11:23:17 CD T CPT-J2930 Solu Medrol 125 mg (Methyl Prednisolone Sodium Succinate) 17:29:12 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 CPT-89115 Abx/Therapy Injection 17:29:11 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 CPT-J2930 Solu Medrol 125 mg (Methyl Prednisolone Sodium Succinate) 12:34:38 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 CPT-J3420 Vitamin B12 1000mcg (Cyanocobalamin) 09:12:55 CDT CPT-J3420 Vitamin B12 1000mcg (Cyanocobalamin) 16:28:06 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 CPT-33897 Venipuncture Draw Fee 08:39:53 CDT CPT-J3420 Vitamin B12 1000mcg (Cyanocobalamin) 08:46:22 CDT CPT-81539 Abx/Therapy Injection 08:46:22 CDT CPT-J3420 Vitamin B12 1000mcg (Cyanocobalamin) 08:41:26 CDT CPT-33972 Abx/Therapy Injection 08:41:26 CDT CPT-J3420 Vitamin B12 1000mcg (Cyanocobalamin) 08:57:15 CDT CPT-76218 Abx/Therapy Injection 08:57:15 CDT CPT-J3420 Vitamin B12 1000mcg (Cyanocobalamin) 10:59:03 CDT CPT-71519 Abx/Therapy Injection 10:59:03 CDT CPT-J3420 Vitamin B12 1000mcg (Cyanocobalamin) 15:05:39 CDT CPT-15604 Abx/Therapy Injection 15:05:39 CDT CPT-J3420 Vitamin B12 1000mcg (Cyanocobalamin) 13:50:45 CDT CPT-J3420 Vitamin B12 1000mcg (Cyanocobalamin) 08:48:55 CDT CPT-41851 Abx/Therapy Injection 08:48:55 CDT CPT-J3420 Vitamin B12 1000mcg (Cyanocobalamin) 09:14:54 CDT CPT-33308 Abx/Therapy Injection 09:14:54 CDT CPT-J3420 Vitamin B12 1000mcg (Cyanocobalamin) 09:06:06 CDT CPT-54782 Abx/Therapy Injection 09:06:06 CDT CPT-J3420 Vitamin B12 1000mcg (Cyanocobalamin) 09:49:14 CDT CPT-52082 Abx/Therapy Injection 09:49:14 CDT CPT-J3420 Vitamin B12 1000mcg (Cyanocobalamin) 09:10:30 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 CPT-95001 Abx/Therapy Injection 09:10:30 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 CPT-J3420 Vitamin B12 1000mcg (Cyanocobalamin) 09:11:07 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 CPT-84966 Abx/Therapy Injection 09:11:07 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 CPT-J3420 Vitamin B12 1000mcg (Cyanocobalamin) 09:57:03 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 CPT-23759 Abx/Therapy Injection 09:57:03 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 CPT-J3420 Vitamin B12 1000mcg (Cyanocobalamin) 09:23:21 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 CPT-74101 Abx/Therapy Injection 09:23:21 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 CPT-43544 Urine Dip (Floor Use Only) 20:21:44 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 201 02/12/11 CPT-48841 UA Dip Auto (Floor Use Only) 10:04:39 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 2 CPT-84837 Urine Dip (Floor Use Only) 13:27:28 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 201 02/12/01 CPT-61977 Bladder Scan 13:27:28 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 CPT-83848 Abd single AP View 14:30:51 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 CPT-OV Office Visit 10:15:43 CDT CPT-52264 Urine Dip (Floor Use Only) 17:22:21 CDT 201 02/09/02 CPT-79376 Bladder Scan 17:22:21 CDT
--- OUTSIDE RECORDS SUMMARY | 2020-05-05 11:59 | XMS REPORT | Clinical Summary ---
Author Author Talon, Jeri Wood Organization [facility] Address Unknown Phone Unavailable Allergies, Adverse Reactions, Alerts Allergy Name Reaction Description Start Date Severity Status Pr ovider FOSAMAX Critical Active Tesfaye armenta MD PRAMIPEXOLE Critical Active Tesfaye villar MD CEFTIN Critical Active Tesfaye armenta MD CIPRO Critical Active Tesfaye armenta MD MIRTAZAPINE Bloating, edema, fatigue, muscle pain Moderate Active Tesfaye Sheramn MD MIRAPEX caused dizziness and weakness Moderate [...] Routine general medical examination at [facility] acility Sinusitis 461.9 Resolved Tesfaye Sherman [...] Tesfaye Sherman MD Dysuria High risk meds education liaison use V58.6 Active Tesfaye Sherman MD Long-term (current) drug use Yeast infection 112.9 Inactive Tesfaye Sherman MD Candidiasis of unspecified site Upper respiratory infection 465.9 Inactive Tesfaye Sherman MD Acute upper respiratory infections of un specified site Lower extremity edema, bilateral 782.3 Active 201 07/07/09 León Kodi INTERNAL COMBUSTION ENGINE INSPECTOR Edema Peripheral neuropathy 356.9 Active Tesfaye [...] Generic Name NDC Status Provider Patient Instruction FENOFIBRATE 145 MG ORAL TABLET Take 1 tablet by mouth once daily 23/12/19 FENOFIBRATE 55277920621 Active Tesfaye Sherman MD Active PRAMIPEXOLE DIHYDROCHLORIDE 0.75 MG ORAL TABLET take 1 tab po qhs for restless leg syndrome. PRAMIPEXOLE DIHYDROCHLORIDE 10817107105 Acti ve Tesfaye Sherman MD Active DIFLUCAN 100 MG ORAL TABLET 1 tablet by mouth daily 20 23/12/05 FLUCONAZOLE 98989753575 No Longer Active Tesfaye Sherman MD Acti ve [facility] NIACIN FLUSH FREE 400-100 MG ORAL CAPSULE 1 daily NIACIN-INOSITOL 91551966478 No Longer Active Tesfaye Sherman MD A ctive FISH OIL 1000 MG ORAL CAPSULE DELAYED RELEASE 1 pill b y mouth daily for cholesterol OMEGA-3 FATTY ACIDS 90000321008 No Longe r Active Tesfaye Sherman MD Active UNISOM SLEEPMELTS 25 MG ORAL TABLET DISINTEGRATING 1.5 po q hs DIPHENHYDRAMINE HCL (SLEEP) 62235926286 No Longer Active Venkata laura Sherman MD Active PREDNISONE 20 MG ORAL TABLET 1 tab twice daily for 3 d ay, then one daily for three days PREDNISONE 16921548351 No Longer Active Tesfaye Sherman MD Active BACLOFEN 10 MG ORAL TABLET Take one tablet by mouth three times a day BACLOFEN 45640562673 No Longer Active Tesfaye Sherman MD Active LIDOCAINE 4 % EXTERNAL CREAM Apply to back prn pain LIDOCAINE 64680113776 Active Tesfaye Sherman MD Active TIZANIDINE HCL 2 MG ORAL TABLET 2 Mg in the AM and 6mg q hs 07/05 TIZANIDINE HCL 75190850849 Active Tesfaye Sherman MD Active HYDROXYZINE HCL 25 MG TABS TAKE 1 TABLET BY MOUTH AT B EDTIME NEEDED FOR SLEEP HYDROXYZINE HCL 71229766432 Active JOSHUA Lindsay A Active FLUCONAZOLE 100 MG ORAL TABLET 1 by mouth daily for yeast infect ion FLUCONAZOLE 87772386379 No Longer Active Laurence Dominguez Acti ve ZITHROMAX 250 MG ORAL TABLET 2 po today, then 1 po q days 2-5 20 21/08/28 AZITHROMYCIN 71355447670 No Longer Active Tesfaye Sherman MD Active DIFLUCAN 100 MG ORAL TABLET 1 tablet by mouth daily 20 21/08/28 FLUCONAZOLE 32265368236 No Longer Active Tesfaye Sherman MD Acti ve HYDROXYZINE HCL 25 MG ORAL TABLET 1 tab po at HS prn sleep 08/02 HYDROXYZINE HCL 42446282591 No Longer Active Tesfaye Sherman MD Active MIRAPEX 0.5 MG ORAL TABLET 1 tablet at night for restless leg. 2018 PRAMIPEXOLE DIHYDROCHLORIDE 95826304289 Active Laurence Dominguez Active MIRAPEX 0.25 MG ORAL TABLET 1 tablet by mouth at night for r estless leg PRAMIPEXOLE DIHYDROCHLORIDE 05701910361 No Longer Act trent Laurence Dominguez Active MIRAPEX 0.125 MG ORAL TABLET 1 po nightly PRAMIPEXOLE DIHYDROCHLORIDE 83377761557 No Longer Active Laurence Dominguez Active ROPINIROLE HCL 2 MG ORAL TABLET 1 po at hs ROPI NIROLE HCL 35328458230 No Longer Active Laurence Dominguez Active ROPINIROLE HCL 1 MG ORAL TABLET 1 tab po q hs ROPINIROLE HCL 56467807924 No Longer Active Laurence Dominguez Active ROPINIROLE HCL 0.5 MG ORAL TABLET 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 ROPINIROLE HCL 33454510496 No Longer Active MARCUS Panchal Active ROPINIROLE HCL 0.25 MG ORAL TABLET 1 TAB PO Q HS 05/31 ROPINIROLE HCL 84691190415 No Longer Active Tesfaye Sherman MD Ac tive PREDNISONE 20 MG ORAL TABLET 1 tab twice daily for 3 d ay, then one daily for three days PREDNISONE 49422895588 No Longer Active Tesfaye Sherman MD Active AMITRIPTYLINE HCL 50 MG ORAL TABLET 1 po q hs for sleep AMITRIPTYLINE HCL 01604959815 No Longer Active Tesfaye Sherman MD Active AMITRIPTYLINE HCL 10 MG ORAL TABLET 1 tablet nightly by mout h for neuropathy AMITRIPTYLINE HCL 56876531744 No Longer Active MARCUS Stapleton Active DIFLUCAN 100 MG ORAL TABLET 1 tablet by mouth daily 20 21/03/11 FLUCONAZOLE 97387689867 No Longer Active Tesfaye Sherman MD Acti ve BACTRIM DS 800-160 MG ORAL TABLET 1 tab by mouth twice daily 201 07/08/06 TRIMETHOPRIM-SULFAMETHOXAZOLE 86958268201 No Longer Active Umer Sherman MD Active CLARITIN 10 MG ORAL TABLET Take one by mouth daily LORATADINE 57453446170 Active Tesfaye Sherman MD Active SUDAFED 12 HOUR 120 MG ORAL TABLET EXTENDED RELEASE 12 HOUR 1 pill twice daily if needed for congestion PSEUDOEPHEDRINE HCL 138649839 13 No Longer Active Tesfaye Sherman MD Active GABAPENTIN 300 MG ORAL CAPSULE 1 po daily GABAP ENTIN 82507867953 No Longer Active Tesfaye Sherman MD Active HYDROCHLOROTHIAZIDE 12.5 MG ORAL CAPSULE 1 pill by mough daily 2 HYDROCHLOROTHIAZIDE 38793902100 No Longer Active León Mariee APRN Active VENLAFAXINE HCL 75 MG ORAL TABLET 1 am 1/2 at noon 201 07/07/09 VENLAFAXINE HCL 44400951721 No Longer Active León Mariee APRN Act trent DIFLUCAN 100 MG ORAL TABLET 1 tablet by mouth daily 20 19/02/09 FLUCONAZOLE 01659975276 No Longer Active León Kodi INTERNAL COMBUSTION ENGINE INSPECTOR Active DIFLUCAN 100 MG ORAL TABLET 1 tablet by mouth daily 20 19/02/09 FLUCONAZOLE 79119596377 No Longer Active León Mariee APRN Active OXYCODONE-ACETAMINOPHEN 5-325 MG ORAL TABLET Take one tablet by mouth every 6 hours 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 Use sparingly OXYCODONE-ACETAMINOPHEN 06845907536 Active Tesfaye villar MD Active CLONAZEPAM 0.5 MG ORAL TABLET Take 1/2 qam, and 1/2 qpm CLONAZEPAM 81905941360 Active Tesfaye Sherman MD Active PRELIEF 340 (65-50) MG (CA-P) ORAL TABLET CALCIUM GLYCEROPHOSPHATE 67582090075 No Longer Active Tesfaey Sherman MD Active SUDAFED 24 HOUR 240 MG ORAL TABLET EXTENDED RELEASE 24 HOUR 1 tab po daily PSEUDOEPHEDRINE HCL 33307325195 No Longer Active Raul Sherman MD Active RED YEAST RICE 600 MG ORAL CAPSULE 1 pill by mouth daily RED YEAST RICE EXTRACT 19066202297 No Longer Active Tesfaye Sherman MD Active REPHRESH PRO-B ORAL CAPSULE 1 tablet daily LACT OBACILLUS 57092200812 No Longer Active Tesfaye Sherman MD Active ABILIFY 2 MG ORAL TABLET 1 by mouth daily. MARIA ELENA PIPRAZOLE 61539209326 Active Tesfaye Sherman MD Active CYMBALTA 60 MG ORAL CAPSULE DELAYED RELEASE PARTICLES 1 cap by mouth daily for pain DULOXETINE HCL 06796093090 Active MARCUS Lindsay Active DIFLUCAN 100 MG ORAL TABLET 1 tablet by mouth daily 20 20/06/06 FLUCONAZOLE 17855573507 No Longer Active Tesfaye Sherman MD Acti ve PREDNISONE 20 MG ORAL TABLET 1 tablet by mouth twice d aily for 3 days, then 1 tablet daily for 3 days PREDNISONE 69068331865 No L onger Active Tesfaye Sherman MD Active BACTRIM DS 800-160 MG ORAL TABLET 1 tab by mouth twice daily 201 06/09/02 TRIMETHOPRIM-SULFAMETHOXAZOLE 81127160975 No Longer Active Fer Dominguez Active DIFLUCAN 100 MG ORAL TABLET 1 tablet by mouth daily 20 20/05/01 FLUCONAZOLE 07236214079 No Longer Active Tesfaye Sherman MD Acti ve ZITHROMAX 250 MG ORAL TABLET 2 po today, then 1 po q days 2-5 20 20/04/28 AZITHROMYCIN 81555918404 No Longer Active Tesfaye Sherman MD Active MECLIZINE HCL 25 MG ORAL TABLET one tab po qday prn dizziness 20 17/09/06 MECLIZINE HCL 89716588154 No Longer Active Tesfaye Sherman MD Active PROAIR HFA 108 (90 BASE) MCG/ACT INHALATION AEROSOL SO LUTION 1 puff every 6 hours as needed ALBUTEROL SULFATE 05203169456 No Long er Active Tesfaye Sherman MD Active PREDNISONE 20 MG ORAL TABLET 1 tab twice daily for 3 d ay, then one daily for three days PREDNISONE 88927911406 No Longer Active Tesfaye Sherman MD Active MECLIZINE HCL 25 MG ORAL TABLET one 4 times a day as needed for dizziness MECLIZINE HCL 91407309251 Active Tesfaye Sherman MD Active AMOXICILLIN 500 MG ORAL CAPSULE 1 cap by mouth three times a day AMOXICILLIN 36294174050 No Longer Active aLurence Dominguez Acti ve DIFLUCAN 100 MG ORAL TABLET 1 tablet by mouth daily 20 19/08/26 FLUCONAZOLE 84713587768 No Longer Active Tesfaye Sherman MD Acti ve BACTRIM DS 800-160 MG ORAL TABLET 1 tab by mouth twice daily 201 05/10/28 TRIMETHOPRIM-SULFAMETHOXAZOLE 15254560307 No Longer Active A mirna Dominguez Active FOSAMAX 70 MG ORAL TABLET 1 po qweek. Take 30min prio r to first food/drink. Avoid lying down x 1 hour. ALENDRONATE SODIUM 07973526 144 No Longer Active Laurence Dominguez Active CYMBALTA 60 MG ORAL CAPSULE DELAYED RELEASE PARTICLES Take 1 tablet by mouth daily DULOXETINE HCL 94858234191 No Longer Active Edith Burch MD Active CYMBALTA 30 MG ORAL CAPSULE DELAYED RELEASE PARTICLES 1 cap by mouth daily with 60mg DULOXETINE HCL 64406610452 No Longer Active Jordan Burch MD Active DIFLUCAN 100 MG ORAL TABLET 1 tablet by mouth daily 19/03/05 FLUCONAZOLE 61064722357 No Longer Active Tesfaye Sherman MD Acti ve BACTRIM DS 800-160 MG ORAL TABLET 1 tab by mouth twice daily 201 05/06/28 TRIMETHOPRIM-SULFAMETHOXAZOLE 59987115347 No Longer Active Umer Sheramn MD Active BACTRIM DS 800-160 MG ORAL TABLET 1 tab by mouth twice daily 201 05/04/15 TRIMETHOPRIM-SULFAMETHOXAZOLE 83868575675 No Longer Active Umer Sherman MD Active DIFLUCAN 150 MG ORAL TABLET 1 tablet by mouth daily 20 18/09/20 FLUCONAZOLE 08535236787 No Longer Active Tesfaye Sherman MD Acti ve BACTRIM DS 800-160 MG ORAL TABLET 1 tab by mouth twice daily 201 04/13/17 TRIMETHOPRIM-SULFAMETHOXAZOLE 74199761395 No Longer Active Umer Sherman MD Active CEFTIN 250 MG ORAL TABLET 1 tablet twice daily x 7 days CEFUROXIME AXETIL 71512406605 No Longer Active Tesfaye Sherman MD Active DIFLUCAN 100 MG ORAL TABLET 1 tablet by mouth every other da y for 2 doses FLUCONAZOLE 66899084839 No Longer Active Tesfaye barron MD Active DIFLUCAN 100 MG ORAL TABLET 1 tablet by mouth daily X 3 DAYS 201 04/09/01 FLUCONAZOLE 73620956708 No Longer Active Rj Moss DO Ac tive MIRTAZAPINE 15 MG ORAL TABLET 1/2 tab by mouth at bedtime. 03/13 MIRTAZAPINE 73334918777 No Longer Active Tesfaye Sherman MD Active BACTRIM DS 800-160 MG ORAL TABLET 1 tab by mouth twice daily 201 04/09/01 TRIMETHOPRIM-SULFAMETHOXAZOLE 33157803723 No Longer Active Umer Sherman MD Active PRAMIPEXOLE DIHYDROCHLORIDE 0.125 MG ORAL TABLET take 1 tablet po qhs for restless leg syndrome. PRAMIPEXOLE DIHYDROCHLORI DE 81678652575 No Longer Active Tesfaye Sherman MD Active MAGNESIUM 400 MG ORAL TABLET 1 tab po daily MAGNE SIUM 81445061679 Active Chelsea Theresa INTERNAL COMBUSTION ENGINE INSPECTOR Active CETIRIZINE HCL 5 MG ORAL TABLET Take 1 tablet by mouth daily CETIRIZINE HCL 73894167716 No Longer Active Chelsea Arell INTERNAL COMBUSTION ENGINE INSPECTOR Activ e TRIMETHOPRIM 100 MG ORAL TABLET 1/2 qd TRIM ETHOPRIM 81012309138 No Longer Active Chelsea Cardenas APRN Active BACTRIM DS 800-160 MG ORAL TABLET 1 tab by mouth twice daily 201 04/04/11 TRIMETHOPRIM-SULFAMETHOXAZOLE 46398236383 No Longer Active Umer Sherman MD Active BACTRIM DS 800-160 MG ORAL TABLET 1 tab by mouth twice daily X 10 DAYS TRIMETHOPRIM-SULFAMETHOXAZOLE 65521494703 No Longer Active Tesfaye Sherman MD Active AMOXICILLIN 500 MG ORAL CAPSULE 1 cap by mouth three times a day AMOXICILLIN 13541841611 No Longer Active Adriana Arredondo, MARCUS A ctive B-12 1000 MCG ORAL LOZENGE 1 tab po daily CYANO COBALAMIN 76429089418 Active Tesfaye Sherman MD Active VITAMIN D3 2000 UNIT ORAL TABLET 1 daily, for vitamin D deficien cy CHOLECALCIFEROL 16174410171 No Longer Active Tesfaye Sherman MD Active ZITHROMAX 250 MG ORAL TABLET 2 po today, then 1 po q days 2-5 20 15/02/10 AZITHROMYCIN 72879525521 No Longer Active Tesfaye Sherman MD Active BACTRIM DS 800-160 MG ORAL TABLET 1 tab by mouth twice daily 201 03/03/23 TRIMETHOPRIM-SULFAMETHOXAZOLE 79915664897 No Longer Active Umer Sherman MD Active DIFLUCAN 150 MG ORAL TABLET 1 qd FLUCONAZOL E 10523703658 No Longer Active J John Cooper MD Active FLUTICASONE PROPIONATE 50 MCG/ACT NASAL SUSPENSION 1 spray each nostril twice daily FLUTICASONE PROPIONATE 59698515044 Active D patricia Sherman MD Active LOVASTATIN 20 MG ORAL TABLET Take 1 tablet by mouth daily LOVASTATIN 93658581798 No Longer Active Tesfaye Sherman MD Acti ve MELOXICAM 7.5 MG ORAL TABLET 1 tablet by mouth daily 2 MELOXICAM 00189103698 No Longer Active Tesfaye Sherman MD Acti ve GABAPENTIN 300 MG ORAL CAPSULE Take two tablets by mouth every e vening GABAPENTIN 54539776553 No Longer Active Edith Burch MD A ctive AMITRIPTYLINE HCL 10 MG ORAL TABLET 1 tablet nightly by mout h for neuropathy AMITRIPTYLINE HCL 10 MG ORAL TABLET 618021 AMITRIPTYLINE HCL Inactive AMITRIPTYLINE HCL 50 MG ORAL TABLET 1 po q hs for sleep AMITRIPTYLINE HCL 50 MG ORAL TABLET 795804 AMITRIPTYLINE HCL Inac tive AMOXICILLIN 500 MG ORAL CAPSULE 1 cap by mouth three times a day AMOXICILLIN 500 MG ORAL CAPSULE 020760 AMOXICILLIN Inactive AMOXICILLIN 500 MG ORAL CAPSULE 1 cap by mouth three times a day AMOXICILLIN 500 MG ORAL CAPSULE 052507 AMOXICILLIN Inactive BACLOFEN 10 MG ORAL TABLET Take one tablet by mouth three times a day BACLOFEN 10 MG ORAL TABLET 316112 BACLOFEN Inact trent BACTRIM DS 800-160 MG ORAL TABLET 1 tab by mouth twice daily 201 04/04/11 BACTRIM DS 800-160 MG ORAL TABLET 050502 TRIMETHOPRIM-SULFAMETHOXAZOLE Inactive BACTRIM DS 800-160 MG ORAL TABLET 1 tab by mouth twice daily 201 04/09/01 BACTRIM DS 800-160 MG ORAL TABLET 923841 TRIMETHOPRIM-SULFAMETHOXAZOLE Inactive BACTRIM DS 800-160 MG ORAL TABLET 1 tab by mouth twice daily 201 04/13/17 BACTRIM DS 800-160 MG ORAL TABLET 129272 TRIMETHOPRIM-SULFAMETHOXAZOLE Inactive BACTRIM DS 800-160 MG ORAL TABLET 1 tab by mouth twice daily 201 05/10/28 BACTRIM DS 800-160 MG ORAL TABLET 654876 TRIMETHOPRIM-SULFAMETHOXAZOLE Inactive BACTRIM DS 800-160 MG ORAL TABLET 1 tab by mouth twice daily 201 03/03/23 BACTRIM DS 800-160 MG ORAL TABLET 727517 TRIMETHOPRIM-SULFAMETHOXAZOLE Inactive BACTRIM DS 800-160 MG ORAL TABLET 1 tab by mouth twice daily 201 05/04/15 BACTRIM DS 800-160 MG ORAL TABLET 190501 TRIMETHOPRIM-SULFAMETHOXAZOLE Inactive BACTRIM DS 800-160 MG ORAL TABLET 1 tab by mouth twice daily 201 05/06/28 BACTRIM DS 800-160 MG ORAL TABLET 374499 TRIMETHOPRIM-SULFAMETHOXAZOLE Inactive BACTRIM DS 800-160 MG ORAL TABLET 1 tab by mouth twice daily 201 06/09/02 BACTRIM DS 800-160 MG ORAL TABLET 267712 TRIMETHOPRIM-SULFAMETHOXAZOLE Inactive BACTRIM DS 800-160 MG ORAL TABLET 1 tab by mouth twice daily 201 07/08/06 BACTRIM DS 800-160 MG ORAL TABLET 652916 TRIMETHOPRIM-SULFAMETHOXAZOLE Inactive BACTRIM DS 800-160 MG ORAL TABLET 1 tab by mouth twice daily X 10 DAYS BACTRIM DS 800-160 MG ORAL TABLET 119809 TRIMETHOPRIM-SULFAMETHOXAZOLE Inactive CEFTIN 250 MG ORAL TABLET [...] 20 20/05/01 DIFLUCAN 100 MG ORAL TABLET 383570 FLUCONAZOLE Inactive DIFLUCAN 100 MG ORAL TABLET 1 tablet by mouth daily 20 21/08/28 DIFLUCAN 100 MG ORAL TABLET 081079 FLUCONAZOLE Inactive HYDROXYZINE HCL 25 MG ORAL TABLET 1 tab po at HS prn sleep 08/02 HYDROXYZINE HCL 25 MG ORAL TABLET 353198 HYDROXYZINE HC L Inactive PREDNISONE 20 MG ORAL TABLET 1 tab twice daily for 3 d ay, then one daily for three days PREDNISONE 20 MG ORAL TABLET 054832 PREDNIS ONE Inactive PREDNISONE 20 MG ORAL TABLET 1 tablet by mouth twice d aily for 3 days, then 1 tablet daily for 3 days PREDNISONE 20 MG ORAL TA BLET 035971 PREDNISONE Inactive PREDNISONE 20 MG ORAL TABLET 1 tab twice daily for 3 d ay, then one daily for three days PREDNISONE 20 MG ORAL TABLET 444983 PREDNIS ONE Inactive PREDNISONE 20 MG ORAL TABLET 1 tab twice daily for 3 d ay, then one daily for three days PREDNISONE 20 MG ORAL TABLET 363683 PREDNIS ONE Inactive TRIMETHOPRIM 100 MG ORAL TABLET 1/2 qd 7 TRIMETHOPRIM 100 MG ORAL TABLET 512255 TRIMETHOPRIM Inactive FLUCONAZOLE 100 MG ORAL TABLET 1 by mouth daily for yeast infect ion FLUCONAZOLE 100 MG ORAL TABLET 591039 FLUCONAZOLE I nactive LOVASTATIN 20 MG ORAL TABLET Take 1 tablet by mouth daily LOVASTATIN 20 MG ORAL TABLET 353641 LOVASTATIN Inactive MECLIZINE HCL 25 MG ORAL TABLET one tab po qday prn dizziness 20 17/09/06 MECLIZINE HCL 25 MG ORAL TABLET 832296 MECLIZINE HCL Inactive VENLAFAXINE HCL 75 MG ORAL TABLET 1 am 1/2 at noon 201 07/07/09 VENLAFAXINE HCL 75 MG ORAL TABLET 230966 VENLAFAXINE HCL Inacti ve DIFLUCAN 150 MG ORAL TABLET 1 qd DIFLUCAN 150 MG ORAL TABLET 755746 FLUCONAZOLE Inactive DIFLUCAN 150 MG ORAL TABLET 1 tablet by mouth daily 20 18/09/20 DIFLUCAN 150 MG ORAL TABLET 220461 FLUCONAZOLE Inactive CETIRIZINE HCL 5 MG ORAL TABLET Take 1 tablet by mouth daily CETIRIZINE HCL 5 MG ORAL TABLET 5459243 CETIRIZINE HCL Inactive MIRTAZAPINE 15 MG ORAL TABLET 1/2 tab by mouth at bedtime. 03/13 MIRTAZAPINE 15 MG ORAL TABLET 500846 MIRTAZAPINE In active GABAPENTIN 300 MG ORAL CAPSULE Take two tablets by mouth every e vening GABAPENTIN 300 MG ORAL CAPSULE 355004 GABAPENTIN I nactive GABAPENTIN 300 MG ORAL CAPSULE 1 po daily GABAPENTIN 300 MG ORAL CAPSULE 438309 GABAPENTIN Inactive HYDROCHLOROTHIAZIDE 12.5 MG ORAL CAPSULE 1 pill by mough daily 2 HYDROCHLOROTHIAZIDE 12.5 MG ORAL CAPSULE 206520 HYDROCH LOROTHIAZIDE Inactive MELOXICAM 7.5 MG ORAL TABLET 1 tablet by mouth daily 2 MELOXICAM 7.5 MG ORAL TABLET 232756 MELOXICAM Inactive ZITHROMAX 250 MG ORAL TABLET 2 po today, then 1 po q days 2-5 20 21/08/28 ZITHROMAX 250 MG ORAL TABLET 909110 AZITHROMYCIN [place] ctive ZITHROMAX 250 MG ORAL TABLET 2 po today, then 1 po q days 2-5 20 20/04/28 ZITHROMAX 250 MG ORAL TABLET 073133 AZITHROMYCIN [place] ctive ZITHROMAX 250 MG ORAL TABLET 2 po today, then 1 po q days 2-5 15/02/10 ZITHROMAX 250 MG ORAL TABLET 345695 AZITHROMYCIN [place] ctive PRAMIPEXOLE DIHYDROCHLORIDE 0.125 MG ORAL TABLET take 1 tablet po qhs for restless leg syndrome. PRAMIPEXOLE DIHYD ROCHLORIDE 0.125 MG ORAL TABLET 114206 PRAMIPEXOLE DIHYDROCHLORIDE Inactive MIRAPEX 0.125 MG ORAL TABLET 1 po nightly MIRAPEX 0.125 MG ORAL TABLET 423085 PRAMIPEXOLE DIHYDROCHLORIDE Inactive MIRAPEX 0.25 MG ORAL TABLET 1 tablet by mouth at night for r estless leg MIRAPEX 0.25 MG ORAL TABLET 117033 PRAM IPEXOLE DIHYDROCHLORIDE Inactive ROPINIROLE HCL 0.25 MG ORAL TABLET 1 TAB PO Q HS 05/31 ROPINIROLE HCL 0.25 MG ORAL TABLET 669766 ROPINIROLE HCL Inact trent ROPINIROLE HCL 1 MG ORAL TABLET 1 tab po q hs ROPINIROLE HCL 1 MG ORAL TABLET 323978 ROPINIROLE HCL Inactive ROPINIROLE HCL 2 MG ORAL TABLET 1 po at hs 7 ROPINIROLE HCL 2 MG ORAL TABLET 600561 ROPINIROLE HCL Inactive ROPINIROLE HCL 0.5 MG ORAL TABLET 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 ROPINIROLE HCL 0.5 MG ORAL TABLET 376369 ROPINIR OLE HCL Inactive SUDAFED 24 HOUR 240 MG ORAL TABLET EXTENDED RELEASE 24 HOUR 1 tab po daily SUDAFED 24 HOUR 240 MG ORAL TABLET EXTENDED RELEASE 24 HOUR PSEUDOEPHEDRINE HCL Inactive FOSAMAX 70 MG ORAL TABLET 1 po qweek. Take 30min prio r to first food/drink. Avoid lying down x 1 hour. FOSAMAX 70 MG ORAL TA BLET 936797 ALENDRONATE SODIUM Inactive PRELIEF 340 (65-50) MG [...] MG ORAL CAPSULE DELAYED RELEA SE PARTICLES 428146 DULOXETINE HCL Inactive CYMBALTA 30 MG ORAL CAPSULE DELAYED RELEASE PARTICLES 1 cap by mouth daily with 60mg CYMBALTA 30 MG ORAL CAPSULE DELAYED RELEASE PARTICLES 562238 DULOXETINE HCL Inactive PROAIR HFA 108 (90 BASE) MCG/ACT INHALATION AEROSOL SO LUTION 1 puff every 6 hours as needed PROAIR HFA 108 (90 B ASE) MCG/ACT INHALATION AEROSOL SOLUTION ALBUTEROL SULFATE Inactive RED YEAST RICE 600 MG ORAL CAPSULE 1 pill by mouth daily RED YEAST RICE 600 MG ORAL CAPSULE 666956 RED YEAST RICE EXTRACT In active UNISOM [...] LIVING WILL ON FILE DURABLE POWER OF BUILDING INSULATION INSTALLER FOR HEALTHCARE Vital Signs Date Name Value [...] Magnesium - Chemistry cholesterol, serum 196 mg/dL 796-109 8629/07/30 triglyceride, serum, fasting 86 mg/dL 30-200 HDL cholesterol, serum 41 mg/dL 32-60 LDL cholesterol, serum 138 mg/dL 0-130 sodium, serum 140 mmol/L 825-327 6617/07/30 carbon dioxide, venous blood 28.6 mmol/L 21.0-32 [...] 5.0-8.5 Encounters Code Encounter Date Provider Facility CPT-[id number] Vst-Est Level IV 10:36:10 C BRIDGET Sherman MD [facility]-00125 [id number] Vst-Est Level IV 13:49:08 PLASTER APPLICATOR Mendy Matute [facility]-72551 [id number] Vst-Est Level IV 11:39:[address] Tesfaye Sherman MD [facility]-13644 [id number] Vst-Est Level IV 14:08:03 C BRIDGET Sherman MD [facility]-12589 Level 3 Est. Patient 18:06:36 CDT Tesfaye pearson MD [facility]-51324 [id number] Vst-Est Level IV 17:09:34 C BRIDGET Sherman MD [facility]-94412 Level 3 Est. Patient 17:27:08 CDT León hernandez APRN [facility]-38254 [id number] Vst-Est Level IV 14:00:[address] Tesfaye Sherman MD [facility]-06535 [id number] Vst-Est Level IV 19:27:[address] Tesfaye Sherman MD [facility]-52121 [id number] Vst-Est Level IV 10:41:41 C DT Tesfaye Sherman MD [facility]-41435 [id number] Vst-Est Level III 09:40:56 CDT Tesfaye Sherman MD [facility]-23140 Level 4 Est. Patient 22:18:12 CDT Tesfaye pearson MD [facility]-30597 Level 4 Est. Patient 14:44:33 PLASTER APPLICATOR Tesfaye pearson MD [facility]-49663 Level 4 Est. Patient 13:55:29 PLASTER APPLICATOR Tesfaye pearson MD [facility]-96532 Level 4 Est. Patient 17:07:34 PLASTER APPLICATOR Tesfaye pearson MD [facility]-57520 Level 4 Est. Patient 13:56:54 CDT Tesfaye pearson MD [facility]-46271 Level 4 Est. Patient 13:24:25 CDT Chelseahumberto sanz APRN [facility] CPT-82516 Level 4 Est. Patient 09:14:56 CDT Tesfaye pearson MD [facility]-85802 Level 4 Est. Patient 18:40:25 PLASTER APPLICATOR Tesfaye pearson MD [facility] CPT-12859 Level 4 Est. Patient 18:13:07 PLASTER APPLICATOR Tesfaye pearson MD [facility] CPT-42653 Level 3 Est. Patient 10:46:32 CDT Rj cotto DO [facility] CPT-79731 Level 4 Est. Patient 20:19:25 CDT Tesfaye pearson MD [facility]-52771 Level 3 Est. Patient 09:07:31 CDT Tesfaye pearson MD [facility] CPT-70264 Level 4 Est. Patient 13:12:56 CDT Tesfaye pearson MD [facility]-33525 Level 4 Est. Patient 21:24:55 PLASTER APPLICATOR Tesfaye pearson MD [facility] CPT-16100 Level 3 Est. Patient 13:45:04 PLASTER APPLICATOR Tesfaye pearson MD [facility] CPT-35199 Level 4 Est. Patient 13:50:45 CDT Tesfaye pearson MD [facility] CPT-48830 Level 3 Est. Patient 10:16:10 CDT Tesfaye pearson MD [facility] CPT-86437 Level 3 Est. Patient 16:36:07 PLASTER APPLICATOR Kayla jameson MD [facility]-66943 Level 4 Est. Patient 16:00:14 PLASTER APPLICATOR Tesfaye pearson MD [facility] CPT-07364 Level 4 Est. Patient 11:02:24 PLASTER APPLICATOR Tesfaye pearson MD [facility] CPT-66435 Level 3 Est. Patient 20:21:43 PLASTER APPLICATOR Kayla jameson MD [facility] CPT-03317 Level 3 Est. Patient 13:27:28 PLASTER APPLICATOR Kayla jameson MD [facility]-62219 Level 4 Est. Patient 15:57:17 PLASTER APPLICATOR Tesfaye pearson MD [facility] CPT-04887 Level 3 New Patient 13:25:47 CDT Tesfaye kidd MD [facility] CPT-21796 Level 3 New Patient 17:22:21 CDT Kayla angel MD [facility] Procedures Code Procedure Name Date Entry Date Standard Desc ription CPT-38864 Prv Med Est Pt 40-64yrs 09:01:58 CDT 03/09 CPT-G0439 [facility] Annual Wellness Exam 11:25:51 CDT CPT-[id number] ([id number] 2P) Patient Reason Influenza immu nization not administered 13:25:19 PLASTER APPLICATOR CPT-35341 Bone Density - XRAY USE ONLY 15:21:33 CDT 2 CPT-64463 Venipuncture Draw Fee 16:12:22 CDT CPT-G0439 Subsequent Annual Wellness Exam 18:06:36 CDT CPT-G0439 Subsequent Annual Wellness Exam 22:18:11 CDT CPT-35732 Bone Density - XRAY USE ONLY 11:43:58 CDT 2 CPT-77420 Bone Density - XRAY USE ONLY 10:05:16 CDT 2 CPT-24714 Prv Med New Pt 40-64 yrs 18:19:25 CDT 2016 CPT-89948 Foot, right, comp min 3V - XRAY USE ONLY 10:38:34 CDT CPT-G0439 Subsequent Annual Wellness Exam 13:55:04 CDT CPT-G0438 Initial Annual Wellness Exam 11:23:17 CD T CPT-J2930 Solu Medrol 125 mg (Methyl Prednisolone Sodium Succinate) 17:29:12 PLASTER APPLICATOR CPT-98098 Abx/Therapy Injection 17:29:11 PLASTER APPLICATOR CPT-J2930 Solu Medrol 125 mg (Methyl Prednisolone Sodium Succinate) 12:34:38 PLASTER APPLICATOR CPT-J3420 Vitamin B12 1000mcg (Cyanocobalamin) 09:12:55 CDT CPT-J3420 Vitamin B12 1000mcg (Cyanocobalamin) 16:28:06 PLASTER APPLICATOR CPT-24004 Venipuncture Draw Fee 08:39:53 CDT CPT-J3420 Vitamin B12 1000mcg (Cyanocobalamin) 08:46:22 CDT CPT-74624 Abx/Therapy Injection 08:46:22 CDT CPT-J3420 Vitamin B12 1000mcg (Cyanocobalamin) 08:41:26 CDT CPT-95682 Abx/Therapy Injection 08:41:26 CDT CPT-J3420 Vitamin B12 1000mcg (Cyanocobalamin) 08:57:15 CDT CPT-36180 Abx/Therapy Injection 08:57:15 CDT CPT-J3420 Vitamin B12 1000mcg (Cyanocobalamin) 10:59:03 CDT CPT-26869 Abx/Therapy Injection 10:59:03 CDT CPT-J3420 Vitamin B12 1000mcg (Cyanocobalamin) 15:05:39 CDT CPT-45105 Abx/Therapy Injection 15:05:39 CDT CPT-J3420 Vitamin B12 1000mcg (Cyanocobalamin) 13:50:45 CDT CPT-J3420 Vitamin B12 1000mcg (Cyanocobalamin) 08:48:55 CDT CPT-28253 Abx/Therapy Injection 08:48:55 CDT CPT-J3420 Vitamin B12 1000mcg (Cyanocobalamin) 09:14:54 CDT CPT-11208 Abx/Therapy Injection 09:14:54 CDT CPT-J3420 Vitamin B12 1000mcg (Cyanocobalamin) 09:06:06 CDT CPT-36454 Abx/Therapy Injection 09:06:06 CDT CPT-J3420 Vitamin B12 1000mcg (Cyanocobalamin) 09:49:14 CDT CPT-38930 Abx/Therapy Injection 09:49:14 CDT CPT-J3420 Vitamin B12 1000mcg (Cyanocobalamin) 09:10:30 PLASTER APPLICATOR CPT-98294 Abx/Therapy Injection 09:10:30 PLASTER APPLICATOR CPT-J3420 Vitamin B12 1000mcg (Cyanocobalamin) 09:11:07 PLASTER APPLICATOR CPT-11239 Abx/Therapy Injection 09:11:07 PLASTER APPLICATOR CPT-J3420 Vitamin B12 1000mcg (Cyanocobalamin) 09:57:03 PLASTER APPLICATOR CPT-56571 Abx/Therapy Injection 09:57:03 PLASTER APPLICATOR CPT-J3420 Vitamin B12 1000mcg (Cyanocobalamin) 09:23:21 PLASTER APPLICATOR CPT-00323 Abx/Therapy Injection 09:23:21 PLASTER APPLICATOR CPT-37067 Urine Dip (Floor Use Only) 20:21:44 PLASTER APPLICATOR 201 02/12/11 CPT-97889 UA Dip Auto (Floor Use Only) 10:04:39 PLASTER APPLICATOR 2 CPT-74405 Urine Dip (Floor Use Only) 13:27:28 PLASTER APPLICATOR 201 02/12/01 CPT-43557 Bladder Scan 13:27:28 PLASTER APPLICATOR CPT-51925 Abd single AP View 14:30:51 PLASTER APPLICATOR CPT-OV Office Visit 10:15:43 CDT CPT-80621 Urine Dip (Floor Use Only) 17:22:21 CDT 201 02/09/02 CPT-84755 Bladder Scan 17:22:21 CDT
--- OUTSIDE RECORDS SUMMARY | 2020-05-05 12:00 | XMS REPORT | Clinical Summary ---
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 PRAMIPEXOLE DIHYDROCHLORIDE 91806726249 Acti ve Tesfaye Sherman MD Active DIFLUCAN 100 MG ORAL TABLET 1 tablet by mouth daily 20 23/12/05 FLUCONAZOLE 96235479175 No Longer Active Tesfaye Sherman MD Acti ve [facility] NIACIN FLUSH FREE 400-100 MG ORAL CAPSULE 1 daily NIACIN-INOSITOL 85331434057 No Longer Active Tesfaye Sherman MD A ctive FISH OIL 1000 MG ORAL CAPSULE DELAYED RELEASE 1 pill b y mouth daily for cholesterol OMEGA-3 FATTY ACIDS 87785924787 No Longe r Active Tesfaye Sherman MD Active UNISOM SLEEPMELTS 25 MG ORAL TABLET DISINTEGRATING 1.5 po q hs DIPHENHYDRAMINE HCL (SLEEP) 12728694547 No Longer Active Venkata Sherman MD Active PREDNISONE 20 MG ORAL TABLET 1 tab twice daily for 3 d ay, then one daily for three days PREDNISONE 30745839239 No Longer Active Tesfaye Sherman MD Active BACLOFEN 10 MG ORAL TABLET Take one tablet by mouth three times a day BACLOFEN 56526062573 No Longer Active Tesfaye Sherman MD Active LIDOCAINE 4 % EXTERNAL CREAM Apply to back prn pain LIDOCAINE 26716016953 Active Tesfaye Sherman MD Active TIZANIDINE HCL 2 MG ORAL TABLET 2 Mg in the AM and 6mg q hs 07/05 TIZANIDINE HCL 38692878574 Active Tesfaye Sherman MD Active HYDROXYZINE HCL 25 MG TABS TAKE 1 TABLET BY MOUTH AT B EDTIME NEEDED FOR SLEEP HYDROXYZINE HCL 24582353819 Active JOSHUA Lindsay Active FLUCONAZOLE 100 MG ORAL TABLET 1 by mouth daily for yeast infect ion FLUCONAZOLE 28446756987 No Longer Active Laurence Dominguez Acti ve ZITHROMAX 250 MG ORAL TABLET 2 po today, then 1 po q days 2-5 20 21/08/28 AZITHROMYCIN 94028876246 No Longer Active Tesfaye Sherman MD Active DIFLUCAN 100 MG ORAL TABLET 1 tablet by mouth daily 20 21/08/28 FLUCONAZOLE 10395720909 No Longer Active Tesfaye Sherman MD Acti ve HYDROXYZINE HCL 25 MG ORAL TABLET 1 tab po at HS prn sleep 08/02 HYDROXYZINE HCL 16713409684 No Longer Active Tesfaye Sherman MD Active MIRAPEX 0.5 MG ORAL TABLET 1 tablet at night for restless leg. 2018 PRAMIPEXOLE DIHYDROCHLORIDE 46733405731 Active Laurenceyohana Dominguez Active MIRAPEX 0.25 MG ORAL TABLET 1 tablet by mouth at night for r estless leg PRAMIPEXOLE DIHYDROCHLORIDE 08095522538 No Longer Act trent Laurence Raida Active MIRAPEX 0.125 MG ORAL TABLET 1 po nightly PRAMIPEXOLE DIHYDROCHLORIDE 75087390998 No Longer Active Laurenceyohana Dominguez Active ROPINIROLE HCL 2 MG ORAL TABLET 1 po at hs ROPI NIROLE HCL 93110945168 No Longer Active Laurenceyohana Dominguez Active ROPINIROLE HCL 1 MG ORAL TABLET 1 tab po q hs ROPINIROLE HCL 99096008284 No Longer Active Laurence Dominguez Active ROPINIROLE HCL 0.5 MG ORAL TABLET 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 ROPINIROLE HCL 78752642378 No Longer Active MARCUS Panchal Active ROPINIROLE HCL 0.25 MG ORAL TABLET 1 TAB PO Q HS 05/31 ROPINIROLE HCL 28163095885 No Longer Active Tesfaye Sherman MD Ac tive PREDNISONE 20 MG ORAL TABLET 1 tab twice daily for 3 d ay, then one daily for three days PREDNISONE 70259313783 No Longer Active Tesfaye Sherman MD Active AMITRIPTYLINE HCL 50 MG ORAL TABLET 1 po q hs for sleep AMITRIPTYLINE HCL 56382834596 No Longer Active Tesfaye Sherman MD Active AMITRIPTYLINE HCL 10 MG ORAL TABLET 1 tablet nightly by mout h for neuropathy AMITRIPTYLINE HCL 19004623662 No Longer Active MARCUS Stapleton Active DIFLUCAN 100 MG ORAL TABLET 1 tablet by mouth daily 20 21/03/11 FLUCONAZOLE 71826356397 No Longer Active Tesfaye Sherman MD Acti ve BACTRIM DS 800-160 MG ORAL TABLET 1 tab by mouth twice daily 201 07/08/06 TRIMETHOPRIM-SULFAMETHOXAZOLE 56672827005 No Longer Active D patricia Sherman MD Active CLARITIN 10 MG ORAL TABLET Take one by mouth daily LORATADINE 87296618756 Active Tesfaye Sherman MD Active SUDAFED 12 HOUR 120 MG ORAL TABLET EXTENDED RELEASE 12 HOUR 1 pill twice daily if needed for congestion PSEUDOEPHEDRINE HCL 241886806 13 No Longer Active Tesfaye Sherman MD Active FENOFIBRATE 145 MG ORAL TABLET 1 by mouth daily FENOFIBRATE 21203013507 Active Laurence Dominguez Active GABAPENTIN 300 MG ORAL CAPSULE 1 po daily GABAP ENTIN 42846094293 No Longer Active Tesfaye Sherman MD Active HYDROCHLOROTHIAZIDE 12.5 MG ORAL CAPSULE 1 pill by mough daily 2 HYDROCHLOROTHIAZIDE 75207751536 No Longer Active León Mariee APRN Active VENLAFAXINE HCL 75 MG ORAL TABLET 1 am 1/2 at noon 201 07/07/09 VENLAFAXINE HCL 93140030791 No Longer Active León Mariee APRN Act trent DIFLUCAN 100 MG ORAL TABLET 1 tablet by mouth daily 20 19/02/09 FLUCONAZOLE 76731378324 No Longer Active León Kodi [facility] SPECIALIST Active DIFLUCAN 100 MG ORAL TABLET 1 tablet by mouth daily 20 19/02/09 FLUCONAZOLE 39594843358 No Longer Active León Mariee APRN Active OXYCODONE-ACETAMINOPHEN 5-325 MG ORAL TABLET Take one tablet by mouth every 6 hours 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 Use sparingly OXYCODONE-ACETAMINOPHEN 67350237215 Active Tesfaye villar MD Active CLONAZEPAM 0.5 MG ORAL TABLET Take 1/2 qam, and 1/2 qpm CLONAZEPAM 59727142676 Active Tesfaye Sherman MD Active PRELIEF 340 (65-50) MG (CA-P) ORAL TABLET CALCIUM GLYCEROPHOSPHATE 14251360509 No Longer Active Tesfaye Sherman MD Active SUDAFED 24 HOUR 240 MG ORAL TABLET EXTENDED RELEASE 24 HOUR 1 tab po daily PSEUDOEPHEDRINE HCL 68153222682 No Longer Active Raul yanet Sherman MD Active RED YEAST RICE 600 MG ORAL CAPSULE 1 pill by mouth daily RED YEAST RICE EXTRACT 61375819688 No Longer Active Tesfaye Sherman MD Active REPHRESH PRO-B ORAL CAPSULE 1 tablet daily LACT OBACILLUS 74205964892 No Longer Active Tesfaye Sherman MD Active ABILIFY 2 MG ORAL TABLET 1 by mouth daily. MARIA ELENA PIPRAZOLE 79827633094 Active Tesafye Sherman MD Active CYMBALTA 60 MG ORAL CAPSULE DELAYED RELEASE PARTICLES 1 cap by mouth daily for pain DULOXETINE HCL 49325710537 Active MARCUS Lindsay Active DIFLUCAN 100 MG ORAL TABLET 1 tablet by mouth daily 20 20/06/06 FLUCONAZOLE 97123865514 No Longer Active Tesfaye Sherman MD Acti ve PREDNISONE 20 MG ORAL TABLET 1 tablet by mouth twice d aily for 3 days, then 1 tablet daily for 3 days PREDNISONE 11237180706 No L onger Active Tesfaye Sherman MD Active BACTRIM DS 800-160 MG ORAL TABLET 1 tab by mouth twice daily 201 06/09/02 TRIMETHOPRIM-SULFAMETHOXAZOLE 91457495075 No Longer Active Fer mastersa Angelica Active DIFLUCAN 100 MG ORAL TABLET 1 tablet by mouth daily 20 20/05/01 FLUCONAZOLE 47103003379 No Longer Active Tesfaye Sherman MD Acti ve ZITHROMAX 250 MG ORAL TABLET 2 po today, then 1 po q days 2-5 20 20/04/28 AZITHROMYCIN 63303466302 No Longer Active Tesfaye Sherman MD Active MECLIZINE HCL 25 MG ORAL TABLET one tab po qday prn dizziness 20 17/09/06 MECLIZINE HCL 69438694783 No Longer Active Tesfaye Sherman MD Active PROAIR HFA 108 (90 BASE) MCG/ACT INHALATION AEROSOL SO LUTION 1 puff every 6 hours as needed ALBUTEROL SULFATE 46166582051 No Long er Active Tesfaye Sherman MD Active PREDNISONE 20 MG ORAL TABLET 1 tab twice daily for 3 d ay, then one daily for three days PREDNISONE 48561582573 No Longer Active Tesfaye Sherman MD Active MECLIZINE HCL 25 MG ORAL TABLET one 4 times a day as needed for dizziness MECLIZINE HCL 00333470007 Active Tesfaye Sherman MD Active AMOXICILLIN 500 MG ORAL CAPSULE 1 cap by mouth three times a day AMOXICILLIN 68418000465 No Longer Active Laurence Angelica Acti ve DIFLUCAN 100 MG ORAL TABLET 1 tablet by mouth daily 20 19/08/26 FLUCONAZOLE 59216480044 No Longer Active Tesfaye Sherman MD Acti ve BACTRIM DS 800-160 MG ORAL TABLET 1 tab by mouth twice daily 201 05/10/28 TRIMETHOPRIM-SULFAMETHOXAZOLE 90097580246 No Longer Active A mirna Dominguez Active FOSAMAX 70 MG ORAL TABLET 1 po qweek. Take 30min prio r to first food/drink. Avoid lying down x 1 hour. ALENDRONATE SODIUM 92945357 144 No Longer Active Laurence Dominguez Active CYMBALTA 60 MG ORAL CAPSULE DELAYED RELEASE PARTICLES Take 1 tablet by mouth daily DULOXETINE HCL 78498053102 No Longer Active Edith Burch MD Active CYMBALTA 30 MG ORAL CAPSULE DELAYED RELEASE PARTICLES 1 cap by mouth daily with 60mg DULOXETINE HCL 35167601293 No Longer Active Jordan Burch MD Active DIFLUCAN 100 MG ORAL TABLET 1 tablet by mouth daily 19/03/05 FLUCONAZOLE 60600730702 No Longer Active Tesfaye Sherman MD Acti ve BACTRIM DS 800-160 MG ORAL TABLET 1 tab by mouth twice daily 201 05/06/28 TRIMETHOPRIM-SULFAMETHOXAZOLE 82600385799 No Longer Active Yanet Sherman MD Active BACTRIM DS 800-160 MG ORAL TABLET 1 tab by mouth twice daily 201 05/04/15 TRIMETHOPRIM-SULFAMETHOXAZOLE 58483749517 No Longer Active Yanet Sherman MD Active DIFLUCAN 150 MG ORAL TABLET 1 tablet by mouth daily 20 18/09/20 FLUCONAZOLE 38041557215 No Longer Active Tesfaye Sherman MD Acti ve BACTRIM DS 800-160 MG ORAL TABLET 1 tab by mouth twice daily 201 04/13/17 TRIMETHOPRIM-SULFAMETHOXAZOLE 38886124671 No Longer Active Yanet Sherman MD Active CEFTIN 250 MG ORAL TABLET 1 tablet twice daily x 7 days CEFUROXIME AXETIL 78850915240 No Longer Active Tesfaye Sherman MD Active DIFLUCAN 100 MG ORAL TABLET 1 tablet by mouth every other da y for 2 doses FLUCONAZOLE 56548067901 No Longer Active Tesfaye barron MD Active DIFLUCAN 100 MG ORAL TABLET 1 tablet by mouth daily X 3 DAYS 201 04/09/01 FLUCONAZOLE 46171247814 No Longer Active Rj Moss DO Ac tive MIRTAZAPINE 15 MG ORAL TABLET 1/2 tab by mouth at bedtime. 03/13 MIRTAZAPINE 80896806252 No Longer Active Tesfaye Sherman MD Active BACTRIM DS 800-160 MG ORAL TABLET 1 tab by mouth twice daily 201 04/09/01 TRIMETHOPRIM-SULFAMETHOXAZOLE 98297736673 No Longer Active Yanet Sherman MD Active PRAMIPEXOLE DIHYDROCHLORIDE 0.125 MG ORAL TABLET take 1 tablet po qhs for restless leg syndrome. PRAMIPEXOLE DIHYDROCHLORI DE 70680323126 No Longer Active Tesfaye Sherman MD Active MAGNESIUM 400 MG ORAL TABLET 1 tab po daily MAGNE SIUM 62682855324 Active Chelsea Cardenas APRN Active CETIRIZINE HCL 5 MG ORAL TABLET Take 1 tablet by mouth daily CETIRIZINE HCL 51470550772 No Longer Active Chelsea Cardenas APRN Activ e TRIMETHOPRIM 100 MG ORAL TABLET 1/2 qd TRIM ETHOPRIM 58896331843 No Longer Active Chelsea Cardenas APRN Active BACTRIM DS 800-160 MG ORAL TABLET 1 tab by mouth twice daily 201 04/04/11 TRIMETHOPRIM-SULFAMETHOXAZOLE 68971384014 No Longer Active Yanet Sherman MD Active BACTRIM DS 800-160 MG ORAL TABLET 1 tab by mouth twice daily X 10 DAYS TRIMETHOPRIM-SULFAMETHOXAZOLE 66317932622 No Longer Active Tesfaye Sherman MD Active AMOXICILLIN 500 MG ORAL CAPSULE 1 cap by mouth three times a day AMOXICILLIN 08592422464 No Longer Active Adriana Arredondo, MARCUS A ctive B-12 1000 MCG ORAL LOZENGE 1 tab po daily CYANO COBALAMIN 29673982784 Active Tesfaye Sherman MD Active VITAMIN D3 2000 UNIT ORAL TABLET 1 daily, for vitamin D deficien cy CHOLECALCIFEROL 27915560633 No Longer Active Tesfaye Sherman MD Active ZITHROMAX 250 MG ORAL TABLET 2 po today, then 1 po q days 2-5 20 15/02/10 AZITHROMYCIN 33368191215 No Longer Active Tesfaye Sherman MD Active BACTRIM DS 800-160 MG ORAL TABLET 1 tab by mouth twice daily 201 03/03/23 TRIMETHOPRIM-SULFAMETHOXAZOLE 86422646283 No Longer Active Yanet Sherman MD Active DIFLUCAN 150 MG ORAL TABLET 1 qd FLUCONAZOL E 31613880233 No Longer Active Kayla Cooper MD Active FLUTICASONE PROPIONATE 50 MCG/ACT NASAL SUSPENSION 1 spray each nostril twice daily FLUTICASONE PROPIONATE 15622755914 Active Yanet Sherman MD Active LOVASTATIN 20 MG ORAL TABLET Take 1 tablet by mouth daily LOVASTATIN 18617577134 No Longer Active Tesfaye Sherman MD Acti ve MELOXICAM 7.5 MG ORAL TABLET 1 tablet by mouth daily 2 MELOXICAM 94070304381 No Longer Active Tesfaye Sherman MD Acti ve GABAPENTIN 300 MG ORAL CAPSULE Take two tablets by mouth every e vening GABAPENTIN 45545443802 No Longer Active Edith Burch MD A ctive GABAPENTIN 300 MG ORAL CAPSULE Take two tablets by mouth every e vening GABAPENTIN 300 MG ORAL CAPSULE 814892 GABAPENTIN I nactive MELOXICAM 7.5 MG ORAL TABLET 1 tablet by mouth daily 2 MELOXICAM 7.5 MG ORAL TABLET 583347 MELOXICAM Inactive LOVASTATIN 20 MG ORAL TABLET Take 1 tablet by mouth daily LOVASTATIN 20 MG ORAL TABLET 993396 LOVASTATIN Inactive DIFLUCAN 150 MG ORAL TABLET 1 qd DIFLUCAN 150 MG ORAL TABLET 288056 FLUCONAZOLE Inactive VITAMIN D3 2000 UNIT ORAL TABLET 1 daily, for vitamin D deficien cy VITAMIN D3 2000 UNIT ORAL TABLET CHOLECALCIFEROL Inactive AMOXICILLIN 500 MG ORAL CAPSULE 1 cap by mouth three times a day AMOXICILLIN 500 MG ORAL CAPSULE 301615 AMOXICILLIN Inactive BACTRIM DS 800-160 MG ORAL TABLET 1 tab by mouth twice daily X 10 DAYS BACTRIM DS 800-160 MG ORAL TABLET 486595 TRIMETHOPRIM-SULFAMETHOXAZOLE Inactive TRIMETHOPRIM 100 MG ORAL TABLET 1/2 qd 7 TRIMETHOPRIM 100 MG ORAL TABLET 112110 TRIMETHOPRIM Inactive CETIRIZINE HCL 5 MG ORAL TABLET Take 1 tablet by mouth daily CETIRIZINE HCL 5 MG ORAL TABLET 8366535 CETIRIZINE HCL Inactive PRAMIPEXOLE DIHYDROCHLORIDE 0.125 MG ORAL TABLET take 1 tablet po qhs for restless leg syndrome. PRAMIPEXOLE DIHYD ROCHLORIDE 0.125 MG ORAL TABLET 926599 PRAMIPEXOLE DIHYDROCHLORIDE Inactive MIRTAZAPINE 15 MG ORAL TABLET 1/2 tab by mouth at bedtime. 03/13 MIRTAZAPINE 15 MG ORAL TABLET 714296 MIRTAZAPINE In active DIFLUCAN 100 MG ORAL TABLET 1 tablet by mouth daily X 3 DAYS 201 04/09/01 DIFLUCAN 100 MG ORAL TABLET 281292 FLUCONAZOLE Inac tive DIFLUCAN 100 MG ORAL TABLET 1 tablet by mouth every other da y for 2 doses DIFLUCAN 100 MG ORAL TABLET 575708 FLUCONAZOLE Inactive CEFTIN 250 MG ORAL TABLET 1 tablet twice daily x 7 days CEFTIN 250 MG ORAL TABLET CEFUROXIME AXETIL Inactive CYMBALTA 30 MG ORAL CAPSULE DELAYED RELEASE PARTICLES 1 cap by mouth daily with 60mg CYMBALTA 30 MG ORAL CAPSULE DELAYED RELEASE PARTICLES 982937 DULOXETINE HCL Inactive CYMBALTA 60 MG ORAL CAPSULE DELAYED RELEASE PARTICLES Take 1 tablet by mouth daily CYMBALTA 60 MG ORAL CAPSULE DELAYED RELEA SE PARTICLES 821679 DULOXETINE HCL Inactive FOSAMAX 70 MG ORAL TABLET 1 po qweek. Take 30min prio r to first food/drink. Avoid lying down x 1 hour. FOSAMAX 70 MG ORAL TA BLET 120361 ALENDRONATE SODIUM Inactive DIFLUCAN 100 MG ORAL TABLET 1 tablet by mouth daily 20 19/08/26 DIFLUCAN 100 MG ORAL TABLET 19760711 FLUCONAZOLE Inactive PREDNISONE 20 MG ORAL TABLET 1 tab twice daily for 3 d ay, then one daily for three days PREDNISONE 20 MG ORAL TABLET 012381 PREDNIS ONE Inactive PROAIR HFA 108 (90 BASE) MCG/ACT INHALATION AEROSOL SO LUTION 1 puff every 6 hours as needed PROAIR HFA 108 (90 B ASE) MCG/ACT INHALATION AEROSOL SOLUTION ALBUTEROL SULFATE Inactive MECLIZINE HCL 25 MG ORAL TABLET one tab po qday prn dizziness 20 17/09/06 MECLIZINE HCL 25 MG ORAL TABLET 099843 MECLIZINE HCL Inactive PREDNISONE 20 MG ORAL TABLET 1 tablet by mouth twice d aily for 3 days, then 1 tablet daily for 3 days PREDNISONE 20 MG ORAL TA BLET 503714 PREDNISONE Inactive DIFLUCAN 100 MG ORAL TABLET 1 tablet by mouth daily 20 20/06/06 DIFLUCAN 100 MG ORAL TABLET 19760711 FLUCONAZOLE Inactive REPHRESH PRO-B ORAL CAPSULE 1 tablet daily REPHRESH PRO-B ORAL CAPSULE LACTOBACILLUS Inactive RED YEAST RICE 600 MG ORAL CAPSULE 1 pill by mouth daily RED YEAST RICE 600 MG ORAL CAPSULE 953653 RED YEAST RICE EXTRACT In active SUDAFED [...] 20 19/02/09 DIFLUCAN 100 MG ORAL TABLET 402840 FLUCONAZOLE Inactive VENLAFAXINE HCL 75 MG ORAL TABLET 1 am 1/2 at noon 201 07/07/09 VENLAFAXINE HCL 75 MG ORAL TABLET 065069 VENLAFAXINE HCL Inacti ve GABAPENTIN 300 MG ORAL CAPSULE 1 po daily GABAPENTIN 300 MG ORAL CAPSULE 124933 GABAPENTIN Inactive SUDAFED 12 HOUR 120 MG ORAL TABLET EXTENDED RELEASE 12 HOUR 1 pill twice daily if needed for congestion SUDAFED 12 HOUR 120 MG ORAL TABLET EXTENDED RELEASE 12 HOUR PSEUDOEPHEDRINE HCL Inactive AMITRIPTYLINE HCL 10 MG ORAL TABLET 1 tablet nightly by mout h for neuropathy AMITRIPTYLINE HCL 10 MG ORAL TABLET 857529 AMITRIPTYLINE HCL Inactive AMITRIPTYLINE HCL 50 MG ORAL TABLET 1 po q hs for sleep AMITRIPTYLINE HCL 50 MG ORAL TABLET 576325 AMITRIPTYLINE HCL Inac tive PREDNISONE 20 MG ORAL TABLET 1 tab twice daily for 3 d ay, then one daily for three days PREDNISONE 20 MG ORAL TABLET 335795 PREDNIS ONE Inactive ROPINIROLE HCL 0.25 MG ORAL TABLET 1 TAB PO Q HS 05/31 ROPINIROLE HCL 0.25 MG ORAL TABLET 285192 ROPINIROLE HCL Inact trent ROPINIROLE HCL 0.5 MG ORAL TABLET 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 ROPINIROLE HCL 0.5 MG ORAL TABLET 654525 ROPINIR OLE HCL Inactive ROPINIROLE HCL 1 MG ORAL TABLET 1 tab po q hs ROPINIROLE HCL 1 MG ORAL TABLET 799039 ROPINIROLE HCL Inactive ROPINIROLE HCL 2 MG ORAL TABLET 1 po at hs 7 ROPINIROLE HCL 2 MG ORAL TABLET 500521 ROPINIROLE HCL Inactive MIRAPEX 0.125 MG ORAL TABLET 1 po nightly MIRAPEX 0.125 MG ORAL TABLET 570452 PRAMIPEXOLE DIHYDROCHLORIDE Inactive MIRAPEX 0.25 MG ORAL TABLET 1 tablet by mouth at night for r estless leg MIRAPEX 0.25 MG ORAL TABLET 829349 PRAM IPEXOLE DIHYDROCHLORIDE Inactive HYDROXYZINE HCL 25 MG ORAL TABLET 1 tab po at HS prn sleep 08/02 HYDROXYZINE HCL 25 MG ORAL TABLET 209080 HYDROXYZINE HC L Inactive DIFLUCAN 100 MG ORAL TABLET 1 tablet by mouth daily 20 21/08/28 DIFLUCAN 100 MG ORAL TABLET 735554 FLUCONAZOLE Inactive BACLOFEN 10 MG ORAL TABLET Take one tablet by mouth three times a day BACLOFEN 10 MG ORAL TABLET 291668 BACLOFEN Inact trent PREDNISONE 20 MG ORAL TABLET 1 tab twice daily for 3 d ay, then one daily for three days PREDNISONE 20 MG ORAL TABLET 987266 PREDNIS ONE Inactive UNISOM SLEEPMELTS 25 MG [...] 03/03/23 BACTRIM DS 800-160 MG ORAL TABLET 530156 TRIMETHOPRIM-SULFAMETHOXAZOLE Inactive ZITHROMAX 250 MG ORAL TABLET 2 po today, then 1 po q days 2-5 20 15/02/10 ZITHROMAX 250 MG ORAL TABLET 135159 AZITHROMYCIN Mayela ctive BACTRIM DS 800-160 MG ORAL TABLET 1 tab by mouth twice daily 201 04/04/11 BACTRIM DS 800-160 MG ORAL TABLET 084694 TRIMETHOPRIM-SULFAMETHOXAZOLE Inactive BACTRIM DS 800-160 MG ORAL [...] a day AMOXICILLIN 500 MG ORAL CAPSULE 244678 AMOXICILLIN Inactive ZITHROMAX 250 MG ORAL TABLET 2 po today, then 1 po q days 2-5 20 20/04/28 ZITHROMAX 250 MG ORAL TABLET 572137 AZITHROMYCIN [place] ctive DIFLUCAN 100 MG ORAL TABLET 1 tablet by mouth daily 20 20/05/01 DIFLUCAN 100 MG ORAL TABLET 19760711 FLUCONAZOLE Inactive BACTRIM DS 800-160 MG ORAL TABLET 1 tab by mouth twice daily 201 06/09/02 BACTRIM DS 800-160 MG ORAL TABLET 19830105 TRIMETHOPRIM-SULFAMETHOXAZOLE Inactive HYDROCHLOROTHIAZIDE 12.5 MG ORAL CAPSULE 1 pill by mough daily 2 HYDROCHLOROTHIAZIDE 12.[address] [facility] LOROTHIAZIDE Inactive BACTRIM DS 800-160 MG ORAL TABLET 1 tab by mouth twice daily 201 9/05/06 BACTRIM DS 800-160 MG ORAL TABLET 055984 TRIMETHOPRIM-SULFAMETHOXAZOLE Inactive DIFLUCAN 100 MG ORAL TABLET 1 tablet by mouth daily 21/03/11 DIFLUCAN 100 MG ORAL TABLET 19760711 FLUCONAZOLE Inactive ZITHROMAX 250 MG ORAL TABLET 2 po today, then 1 po q days 2-5 20 21/08/28 ZITHROMAX 250 MG ORAL TABLET 969590 AZITHROMYCIN Mayela ctive FLUCONAZOLE 100 MG ORAL [...] LIVING WILL ON FILE DURABLE POWER OF PARTS PULLER FOR HEALTHCARE Vital Signs Date Name Value [...] Magnesium - Chemistry cholesterol, serum 196 mg/dL 188-536 3069/07/30 triglyceride, serum, fasting 86 mg/dL 30-200 HDL cholesterol, serum 41 mg/dL 32-60 LDL cholesterol, serum 138 mg/dL 0-130 sodium, serum 140 mmol/L 676-278 0443/07/30 carbon dioxide, venous blood 28.6 mmol/L 21.0-32 [...] 5.0-8.5 Encounters Code Encounter Date Provider Facility CPT-50045 [id number] Vst-Est Level IV 10:36:10 C BRIDGET Sherman MD -30587 [id number] Vst-Est Level IV 13:49:08 [facility] [id number] Vst-Est Level IV 11:39:[address] Tesfaye Sherman MD -78398 [id number] Vst-Est Level IV 14:08:03 C BRIDGET Sherman MD -16337 Level 3 Est. Patient 18:06:36 CDT Tesfaye pearson MD -49770 [id number] Vst-Est Level IV 17:09:34 C BRIDGET Sherman MD -14505 Level 3 Est. Patient 17:27:08 CDT León hernandez [facility] SPECIALIST -07394 [id number] Vst-Est Level IV 14:00:[address] Tesfaye Sherman MD -16236 [id number] Vst-Est Level IV 19:27:[address] Tesfaye Sherman MD -46049 [id number] Vst-Est Level IV 10:41:41 C DT Tesfaye Sherman MD -79902 [id number] Vst-Est Level III 09:40:56 CDT Tesfaye Sherman MD -37907 Level 4 Est. Patient 22:18:12 CDT Tesfaye pearson MD -72119 Level 4 Est. Patient 14:44:33 [employer] Tesfaye pearson MD -86148 Level 4 Est. Patient 13:55:29 MENAGERIE [employer]AK[employer] Tesfaye pearson MD -81167 Level 4 Est. Patient 17:07:34 MENAGERIE CARETAKER Tesfaye pearson MD -70043 Level 4 Est. Patient 13:56:54 CDT Tesfaye pearson MD -80931 Level 4 Est. Patient 13:24:25 CDT Chelsea sanz APRN [facility] CPT-37095 Level 4 Est. Patient 09:14:56 CDT Tesfaye pearson MD -83473 Level 4 Est. Patient 18:40:25 MENAGERIE [employer]AK[employer] Tesfaye pearson MD -73041 Level 4 Est. Patient 18:13:07 MENAGERIE CARETAKER Tesfaye pearson MD -27618 Level 3 Est. Patient 10:46:32 CDT Rj cotto DO [facility] CPT-45778 Level 4 Est. Patient 20:19:25 CDT Tesfaye pearson MD -02128 Level 3 Est. Patient 09:07:31 CDT Tesfaye pearson MD -03836 Level 4 Est. Patient 13:12:56 CDT Tesfaye pearson MD -66263 Level 4 Est. Patient 21:24:55 MENAGERIE CAR[employer]AKER Tesfaye pearson MD [facility] CPT-67466 Level 3 Est. Patient 13:45:04 MENAGERIE CARETAKER Tesfaye pearson MD [facility] CPT-57396 Level 4 Est. Patient 13:50:45 CDT Tesfaye pearson MD [facility] CPT-44670 Level 3 Est. Patient 10:16:10 CDT Tesfaye pearson MD [facility] CPT-04095 Level 3 Est. Patient 16:36:07 MENAGERIE CARETAKER Kayla jameson MD [facility] CPT-65389 Level 4 Est. Patient 16:00:14 MENAGERIE CARETAKER Tesfaye pearson MD -93522 Level 4 Est. Patient 11:02:24 MENAGERIE CARETAKER Tesfaye pearson MD [facility] CPT-09066 Level 3 Est. Patient 20:21:43 MENAGERIE CARETAKER Kayla jameson MD [facility] CPT-76224 Level 3 Est. Patient 13:27:28 MENAGERIE CARETAKER Kayla jameson MD [facility] CPT-03947 Level 4 Est. Patient 15:57:17 MENAGERIE CARETAKER Tesfaye pearson MD [facility] CPT-75406 Level 3 New Patient 13:25:47 CDT Tesfaye kidd MD [facility] CPT-77566 Level 3 New Patient 17:22:21 CDT Kayla angel MD [facility] Procedures Code Procedure Name Date Entry Date Standard Desc ription CPT-87579 Prv Med Est Pt 40-64yrs 09:01:58 CDT 03/09 CPT-G0439 [facility] Annual Wellness Exam 11:25:51 CDT [id number] ([id number] 2P) Patient Reason Influenza immu nization not administered 13:25:19 MENAGERIE CARETAKER CPT-87802 Bone Density - XRAY USE ONLY 15:21:33 CDT 2 CPT-44694 Venipuncture Draw Fee 16:12:22 CDT CPT-G0439 Subsequent Annual Wellness Exam 18:06:36 CDT CPT-G0439 Subsequent Annual Wellness Exam 22:18:11 CDT CPT-75862 Bone Density - XRAY USE ONLY 11:43:58 CDT 2 CPT-10718 Bone Density - XRAY USE ONLY 10:05:16 CDT 2 CPT-94659 Prv Med New Pt 40-64 yrs 18:19:25 CDT 2016 CPT-56210 Foot, right, comp min 3V - XRAY USE ONLY 10:38:34 CDT CPT-G0439 Subsequent Annual Wellness Exam 13:55:04 CDT CPT-G0438 Initial Annual Wellness Exam 11:23:17 CD T CPT-J2930 Solu Medrol 125 mg (Methyl Prednisolone Sodium Succinate) 17:29:12 MENAGERIE CARETAKER CPT-78931 Abx/Therapy Injection 17:29:11 MENAGERIE CARETAKER CPT-J2930 Solu Medrol 125 mg (Methyl Prednisolone Sodium Succinate) 12:34:38 MENAGERIE CARETAKER CPT-J3420 Vitamin B12 1000mcg (Cyanocobalamin) 09:12:55 CDT CPT-J3420 Vitamin B12 1000mcg (Cyanocobalamin) 16:28:06 MENAGERIE CARETAKER CPT-45242 Venipuncture Draw Fee 08:39:53 CDT CPT-J3420 Vitamin B12 1000mcg (Cyanocobalamin) 08:46:22 CDT CPT-50105 Abx/Therapy Injection 08:46:22 CDT CPT-J3420 Vitamin B12 1000mcg (Cyanocobalamin) 08:41:26 CDT CPT-76710 Abx/Therapy Injection 08:41:26 CDT CPT-J3420 Vitamin B12 1000mcg (Cyanocobalamin) 08:57:15 CDT CPT-32765 Abx/Therapy Injection 08:57:15 CDT CPT-J3420 Vitamin B12 1000mcg (Cyanocobalamin) 10:59:03 CDT CPT-40245 Abx/Therapy Injection 10:59:03 CDT CPT-J3420 Vitamin B12 1000mcg (Cyanocobalamin) 15:05:39 CDT CPT-53079 Abx/Therapy Injection 15:05:39 CDT CPT-J3420 Vitamin B12 1000mcg (Cyanocobalamin) 13:50:45 CDT CPT-J3420 Vitamin B12 1000mcg (Cyanocobalamin) 08:48:55 CDT CPT-52978 Abx/Therapy Injection 08:48:55 CDT CPT-J3420 Vitamin B12 1000mcg (Cyanocobalamin) 09:14:54 CDT CPT-82515 Abx/Therapy Injection 09:14:54 CDT CPT-J3420 Vitamin B12 1000mcg (Cyanocobalamin) 09:06:06 CDT CPT-93558 Abx/Therapy Injection 09:06:06 CDT CPT-J3420 Vitamin B12 1000mcg (Cyanocobalamin) 09:49:14 CDT CPT-28971 Abx/Therapy Injection 09:49:14 CDT CPT-J3420 Vitamin B12 1000mcg (Cyanocobalamin) 09:10:30 MENAGERIE CARETAK[employer] CPT-45729 Abx/Therapy Injection 09:10:30 MENAGERIE CARETAKER CPT-J3420 Vitamin B12 1000mcg (Cyanocobalamin) 09:11:07 MENAGERIE CARETAKER CPT-76969 Abx/Therapy Injection 09:11:07 MENAGERIE CARETAKER CPT-J3420 Vitamin B12 1000mcg (Cyanocobalamin) 09:57:03 MENAGERIE CARETAKER CPT-15146 Abx/Therapy Injection 09:57:03 MENAGERIE CARETAKER CPT-J3420 Vitamin B12 1000mcg (Cyanocobalamin) 09:23:21 MENAGERIE CARETAKER CPT-03355 Abx/Therapy Injection 09:23:21 MENAGERIE CARETAKER CPT-35267 Urine Dip (Floor Use Only) 20:21:44 MENAGERIE CARETAKER 201 02/12/11 CPT-53587 UA Dip Auto (Floor Use Only) 10:04:39 MENAGERIE CARETAKER 2 CPT-91961 Urine Dip (Floor Use Only) 13:27:28 MENAGERIE CARETAKER 201 02/12/01 CPT-80071 Bladder Scan 13:27:28 MENAGERIE CARETAKER CPT-60599 Abd single AP View 14:30:51 MENAGERIE CARETAKER CPT-OV Office Visit 10:15:43 CDT CPT-21751 Urine Dip (Floor Use Only) 17:22:21 CDT 201 02/09/02 CPT-43998 Bladder Scan 17:22:21 CDT
--- OUTSIDE RECORDS SUMMARY | 2020-05-05 12:01 | XMS REPORT | Clinical Summary ---
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 PRAMIPEXOLE DIHYDROCHLORIDE [id number] Acti ve Tesfaye Sherman MD Active DIFLUCAN 100 MG ORAL TABLET 1 tablet by mouth daily 20 23/12/05 FLUCONAZOLE 67098022936 No Longer Active Tesfaye Sherman MD Acti ve [facility] NIACIN FLUSH FREE 400-100 MG ORAL CAPSULE 1 daily NIACIN-INOSITOL 75758212649 No Longer Active Tesfaye Sherman MD A ctive FISH OIL 1000 MG ORAL CAPSULE DELAYED RELEASE 1 pill b y mouth daily for cholesterol OMEGA-3 FATTY ACIDS 23516456029 No Longe r Active Tesfaye Sherman MD Active UNISOM SLEEPMELTS 25 MG ORAL TABLET DISINTEGRATING 1.5 po q hs DIPHENHYDRAMINE HCL (SLEEP) 81200631507 No Longer Active Venkata Sherman MD Active PREDNISONE 20 MG ORAL TABLET 1 tab twice daily for 3 d ay, then one daily for three days PREDNISONE 24962360220 No Longer Active Tesfaye Sherman MD Active BACLOFEN 10 MG ORAL TABLET Take one tablet by mouth three times a day BACLOFEN 35867419360 No Longer Active Tesfaye Sherman MD Active LIDOCAINE 4 % EXTERNAL CREAM Apply to back prn pain LIDOCAINE 43975857439 Active Tesfaye Sherman MD Active TIZANIDINE HCL 2 MG ORAL TABLET 2 Mg in the AM and 6mg q hs 07/05 TIZANIDINE HCL 41452039459 Active Tesfaye Sherman MD Active HYDROXYZINE HCL 25 MG TABS TAKE 1 TABLET BY MOUTH AT B EDTIME NEEDED FOR SLEEP HYDROXYZINE HCL 24813249173 Active JOSHUA Lindsay Active FLUCONAZOLE 100 MG ORAL TABLET 1 by mouth daily for yeast infect ion FLUCONAZOLE 44344157905 No Longer Active Laurence Dominguez Acti ve ZITHROMAX 250 MG ORAL TABLET 2 po today, then 1 po q days 2-5 20 21/08/28 AZITHROMYCIN 71441592392 No Longer Active Tesfaye Sherman MD Active DIFLUCAN 100 MG ORAL TABLET 1 tablet by mouth daily 20 21/08/28 FLUCONAZOLE 24057532996 No Longer Active Tesfaye Sherman MD Acti ve HYDROXYZINE HCL 25 MG ORAL TABLET 1 tab po at HS prn sleep 08/02 HYDROXYZINE HCL 65102704813 No Longer Active Tesfaye Sherman MD Active MIRAPEX 0.5 MG ORAL TABLET 1 tablet at night for restless leg. 2018 PRAMIPEXOLE DIHYDROCHLORIDE 14438603407 Active Laurenceyohana Dominguez Active MIRAPEX 0.25 MG ORAL TABLET 1 tablet by mouth at night for r estless leg PRAMIPEXOLE DIHYDROCHLORIDE 41929650633 No Longer Act trent Laurence Raida Active MIRAPEX 0.125 MG ORAL TABLET 1 po nightly PRAMIPEXOLE DIHYDROCHLORIDE 27950935891 No Longer Active Laurenceyohana Dominguez Active ROPINIROLE HCL 2 MG ORAL TABLET 1 po at hs ROPI NIROLE HCL 52258513772 No Longer Active Laurenceyohana Dominguez Active ROPINIROLE HCL 1 MG ORAL TABLET 1 tab po q hs ROPINIROLE HCL 98859352355 No Longer Active Laurence Dominguez Active ROPINIROLE HCL 0.5 MG ORAL TABLET 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 ROPINIROLE HCL 82940604702 No Longer Active MARCUS Panchal Active ROPINIROLE HCL 0.25 MG ORAL TABLET 1 TAB PO Q HS 05/31 ROPINIROLE HCL 88111533269 No Longer Active Tesfaye Sherman MD Ac tive PREDNISONE 20 MG ORAL TABLET 1 tab twice daily for 3 d ay, then one daily for three days PREDNISONE 24761725950 No Longer Active Tesfaye Sherman MD Active AMITRIPTYLINE HCL 50 MG ORAL TABLET 1 po q hs for sleep AMITRIPTYLINE HCL 81946287027 No Longer Active Tesfaye Sherman MD Active AMITRIPTYLINE HCL 10 MG ORAL TABLET 1 tablet nightly by mout h for neuropathy AMITRIPTYLINE HCL 55144436424 No Longer Active MARCUS Stapleton Active DIFLUCAN 100 MG ORAL TABLET 1 tablet by mouth daily 20 21/03/11 FLUCONAZOLE 84040379751 No Longer Active Tesfaye Sherman MD Acti ve BACTRIM DS 800-160 MG ORAL TABLET 1 tab by mouth twice daily 201 07/08/06 TRIMETHOPRIM-SULFAMETHOXAZOLE 42927720372 No Longer Active D patricia Sherman MD Active CLARITIN 10 MG ORAL TABLET Take one by mouth daily LORATADINE 81966050173 Active Tesfaye Sherman MD Active SUDAFED 12 HOUR 120 MG ORAL TABLET EXTENDED RELEASE 12 HOUR 1 pill twice daily if needed for congestion PSEUDOEPHEDRINE HCL 245373752 13 No Longer Active Tesfaye Sherman MD Active FENOFIBRATE 145 MG ORAL TABLET 1 by mouth daily FENOFIBRATE 26060592320 Active Laurence Dominguez Active GABAPENTIN 300 MG ORAL CAPSULE 1 po daily GABAP ENTIN 32070042786 No Longer Active Tesfaye Sherman MD Active HYDROCHLOROTHIAZIDE 12.5 MG ORAL CAPSULE 1 pill by mough daily 2 HYDROCHLOROTHIAZIDE 62000942276 No Longer Active León Mariee APRN Active VENLAFAXINE HCL 75 MG ORAL TABLET 1 am 1/2 at noon 201 07/07/09 VENLAFAXINE HCL 46423136189 No Longer Active León Mariee APRN Act trent DIFLUCAN 100 MG ORAL TABLET 1 tablet by mouth daily 20 19/02/09 FLUCONAZOLE 26269853857 No Longer Active 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 Use sparingly OXYCODONE-ACETAMINOPHEN 14665222425 Active Tesfaye villar MD Active CLONAZEPAM 0.5 MG ORAL TABLET Take 1/2 qam, and 1/2 qpm CLONAZEPAM 70604327359 Active Tesfaye Sherman MD Active PRELIEF 340 (65-50) MG (CA-P) ORAL TABLET CALCIUM GLYCEROPHOSPHATE 51890084203 No Longer Active Tesfaye Sherman MD Active SUDAFED 24 HOUR 240 MG ORAL TABLET EXTENDED RELEASE 24 HOUR 1 tab po daily PSEUDOEPHEDRINE HCL 03621652802 No Longer Active Raul yanet Sherman MD Active RED YEAST RICE 600 MG ORAL CAPSULE 1 pill by mouth daily RED YEAST RICE EXTRACT 37135216207 No Longer Active eTsfaye Sherman MD Active REPHRESH PRO-B ORAL CAPSULE 1 tablet daily LACT OBACILLUS 06263312981 No Longer Active Tesfaye Sherman MD Active ABILIFY 2 MG ORAL TABLET 1 by mouth daily. MARIA ELENA PIPRAZOLE 68608538021 Active Tesfaye Sherman MD Active CYMBALTA 60 MG ORAL CAPSULE DELAYED RELEASE PARTICLES 1 cap by mouth daily for pain DULOXETINE HCL 71058773928 Active MARCUS Lindsay Active DIFLUCAN 100 MG ORAL TABLET 1 tablet by mouth daily 20 20/06/06 FLUCONAZOLE 18019243680 No Longer Active Tesfaye Sherman MD Acti ve PREDNISONE 20 MG ORAL TABLET 1 tablet by mouth twice d aily for 3 days, then 1 tablet daily for 3 days PREDNISONE 64725835933 No L onger Active Tesfaye Sherman MD Active BACTRIM DS 800-160 MG ORAL TABLET 1 tab by mouth twice daily 201 06/09/02 TRIMETHOPRIM-SULFAMETHOXAZOLE 40338395728 No Longer Active Fer mastersa Angelica Active DIFLUCAN 100 MG ORAL TABLET 1 tablet by mouth daily 20 20/05/01 FLUCONAZOLE 82438656962 No Longer Active Tesfaye Sherman MD Acti ve ZITHROMAX 250 MG ORAL TABLET 2 po today, then 1 po q days 2-5 20 20/04/28 AZITHROMYCIN 61986397575 No Longer Active Tesfaye Sherman MD Active MECLIZINE HCL 25 MG ORAL TABLET one tab po qday prn dizziness 20 17/09/06 MECLIZINE HCL 96400585090 No Longer Active Tesfaye Sherman MD Active PROAIR HFA 108 (90 BASE) MCG/ACT INHALATION AEROSOL SO LUTION 1 puff every 6 hours as needed ALBUTEROL SULFATE 71063218079 No Long er Active Tesfaye Sherman MD Active PREDNISONE 20 MG ORAL TABLET 1 tab twice daily for 3 d ay, then one daily for three days PREDNISONE 18150838961 No Longer Active Tesfaye Sherman MD Active MECLIZINE HCL 25 MG ORAL TABLET one 4 times a day as needed for dizziness MECLIZINE HCL 38117345300 Active Tesfaye Sherman MD Active AMOXICILLIN 500 MG ORAL CAPSULE 1 cap by mouth three times a day AMOXICILLIN 46935498591 No Longer Active Laurence Angelica Acti ve DIFLUCAN 100 MG ORAL TABLET 1 tablet by mouth daily 20 19/08/26 FLUCONAZOLE 24652699659 No Longer Active Tesfaye Sherman MD Acti ve BACTRIM DS 800-160 MG ORAL TABLET 1 tab by mouth twice daily 201 05/10/28 TRIMETHOPRIM-SULFAMETHOXAZOLE 71058782665 No Longer Active A mirna Dominguez Active FOSAMAX 70 MG ORAL TABLET 1 po qweek. Take 30min prio r to first food/drink. Avoid lying down x 1 hour. ALENDRONATE SODIUM 71069081 144 No Longer Active Laurence Dominguez Active CYMBALTA 60 MG ORAL CAPSULE DELAYED RELEASE PARTICLES Take 1 tablet by mouth daily DULOXETINE HCL 59868314056 No Longer Active Edith Burch MD Active CYMBALTA 30 MG ORAL CAPSULE DELAYED RELEASE PARTICLES 1 cap by mouth daily with 60mg DULOXETINE HCL 12751900480 No Longer Active Jordan Burch MD Active DIFLUCAN 100 MG ORAL TABLET 1 tablet by mouth daily 19/03/05 FLUCONAZOLE 38417621032 No Longer Active Tesfaye Sherman MD Acti ve BACTRIM DS 800-160 MG ORAL TABLET 1 tab by mouth twice daily 201 05/06/28 TRIMETHOPRIM-SULFAMETHOXAZOLE 96574792630 No Longer Active Yanet Sherman MD Active BACTRIM DS 800-160 MG ORAL TABLET 1 tab by mouth twice daily 201 05/04/15 TRIMETHOPRIM-SULFAMETHOXAZOLE 67461721119 No Longer Active Yanet Sherman MD Active DIFLUCAN 150 MG ORAL TABLET 1 tablet by mouth daily 20 18/09/20 FLUCONAZOLE 06670992267 No Longer Active Tesfaye Sherman MD Acti ve BACTRIM DS 800-160 MG ORAL TABLET 1 tab by mouth twice daily 201 04/13/17 TRIMETHOPRIM-SULFAMETHOXAZOLE 99215755112 No Longer Active Yanet Sherman MD Active CEFTIN 250 MG ORAL TABLET 1 tablet twice daily x 7 days CEFUROXIME AXETIL 54247003977 No Longer Active Tesfaye Sherman MD Active DIFLUCAN 100 MG ORAL TABLET 1 tablet by mouth every other da y for 2 doses FLUCONAZOLE 19369099921 No Longer Active Tesfaye barron MD Active DIFLUCAN 100 MG ORAL TABLET 1 tablet by mouth daily X 3 DAYS 201 04/09/01 FLUCONAZOLE 30215506247 No Longer Active Rj Moss DO Ac tive MIRTAZAPINE 15 MG ORAL TABLET 1/2 tab by mouth at bedtime. 03/13 MIRTAZAPINE 84643253149 No Longer Active Tesfaye Sherman MD Active BACTRIM DS 800-160 MG ORAL TABLET 1 tab by mouth twice daily 201 04/09/01 TRIMETHOPRIM-SULFAMETHOXAZOLE 80675833218 No Longer Active Yanet Sherman MD Active PRAMIPEXOLE DIHYDROCHLORIDE 0.125 MG ORAL TABLET take 1 tablet po qhs for restless leg syndrome. PRAMIPEXOLE DIHYDROCHLORI DE 01190680827 No Longer Active Tesfaye Sherman MD Active MAGNESIUM 400 MG ORAL TABLET 1 tab po daily MAGNE SIUM 16818934982 Active Chelsea Cardenas APRN Active CETIRIZINE HCL 5 MG ORAL TABLET Take 1 tablet by mouth daily CETIRIZINE HCL 08450326563 No Longer Active Chelsea Cardenas APRN Activ e TRIMETHOPRIM 100 MG ORAL TABLET 1/2 qd TRIM ETHOPRIM 40553383944 No Longer Active Chelsea Cardenas APRN Active BACTRIM DS 800-160 MG ORAL TABLET 1 tab by mouth twice daily 201 04/04/11 TRIMETHOPRIM-SULFAMETHOXAZOLE 87280672923 No Longer Active Yanet Sherman MD Active BACTRIM DS 800-160 MG ORAL TABLET 1 tab by mouth twice daily X 10 DAYS TRIMETHOPRIM-SULFAMETHOXAZOLE 24366936481 No Longer Active Tesfaye Sherman MD Active AMOXICILLIN 500 MG ORAL CAPSULE 1 cap by mouth three times a day AMOXICILLIN 26854410070 No Longer Active Adriana Arredondo, MARCUS A ctive B-12 1000 MCG ORAL LOZENGE 1 tab po daily CYANO COBALAMIN 33015450977 Active Tesfaye Sherman MD Active VITAMIN D3 2000 UNIT ORAL TABLET 1 daily, for vitamin D deficien cy CHOLECALCIFEROL 36653605020 No Longer Active Tesfaye Sherman MD Active ZITHROMAX 250 MG ORAL TABLET 2 po today, then 1 po q days 2-5 20 15/02/10 AZITHROMYCIN 42437752953 No Longer Active Tesfaye Sherman MD Active BACTRIM DS 800-160 MG ORAL TABLET 1 tab by mouth twice daily 201 03/03/23 TRIMETHOPRIM-SULFAMETHOXAZOLE 56097207926 No Longer Active Yanet Sherman MD Active DIFLUCAN 150 MG ORAL TABLET 1 qd FLUCONAZOL E 27937644018 No Longer Active Kayla Cooper MD Active FLUTICASONE PROPIONATE 50 MCG/ACT NASAL SUSPENSION 1 spray each nostril twice daily FLUTICASONE PROPIONATE 70971138770 Active Yanet Sherman MD Active LOVASTATIN 20 MG ORAL TABLET Take 1 tablet by mouth daily LOVASTATIN 61800524405 No Longer Active Tesfaye Sherman MD Acti ve MELOXICAM 7.5 MG ORAL TABLET 1 tablet by mouth daily 2 MELOXICAM 90213471906 No Longer Active Tesfaye Sherman MD Acti ve GABAPENTIN 300 MG ORAL CAPSULE Take two tablets by mouth every e vening GABAPENTIN 86949860381 No Longer Active Edith Burch MD A ctive GABAPENTIN 300 MG ORAL CAPSULE Take two tablets by mouth every e vening GABAPENTIN 300 MG ORAL CAPSULE 234459 GABAPENTIN I nactive MELOXICAM 7.5 MG ORAL TABLET 1 tablet by mouth daily 2 MELOXICAM 7.5 MG ORAL TABLET 875721 MELOXICAM Inactive LOVASTATIN 20 MG ORAL TABLET Take 1 tablet by mouth daily LOVASTATIN 20 MG ORAL TABLET 741047 LOVASTATIN Inactive DIFLUCAN 150 MG ORAL TABLET 1 qd DIFLUCAN 150 MG ORAL TABLET 898628 FLUCONAZOLE Inactive VITAMIN D3 2000 UNIT ORAL TABLET 1 daily, for vitamin D deficien cy VITAMIN D3 2000 UNIT ORAL TABLET CHOLECALCIFEROL Inactive AMOXICILLIN 500 MG ORAL CAPSULE 1 cap by mouth three times a day AMOXICILLIN 500 MG ORAL CAPSULE 075761 AMOXICILLIN Inactive BACTRIM DS 800-160 MG ORAL TABLET 1 tab by mouth twice daily X 10 DAYS BACTRIM DS 800-160 MG ORAL TABLET 859726 TRIMETHOPRIM-SULFAMETHOXAZOLE Inactive TRIMETHOPRIM 100 MG ORAL TABLET 1/2 qd 7 TRIMETHOPRIM 100 MG ORAL TABLET 264586 TRIMETHOPRIM Inactive CETIRIZINE HCL 5 MG ORAL TABLET Take 1 tablet by mouth daily CETIRIZINE HCL 5 MG ORAL TABLET 0290198 CETIRIZINE HCL Inactive PRAMIPEXOLE DIHYDROCHLORIDE 0.125 MG ORAL TABLET take 1 tablet po qhs for restless leg syndrome. PRAMIPEXOLE DIHYD ROCHLORIDE 0.125 MG ORAL TABLET 254818 PRAMIPEXOLE DIHYDROCHLORIDE Inactive MIRTAZAPINE 15 MG ORAL TABLET 1/2 tab by mouth at bedtime. 03/13 MIRTAZAPINE 15 MG ORAL TABLET 768420 MIRTAZAPINE In active DIFLUCAN 100 MG ORAL TABLET 1 tablet by mouth daily X 3 DAYS 201 04/09/01 DIFLUCAN 100 MG ORAL TABLET 097767 FLUCONAZOLE Inac tive DIFLUCAN 100 MG ORAL TABLET 1 tablet by mouth every other da y for 2 doses DIFLUCAN 100 MG ORAL TABLET 012584 FLUCONAZOLE Inactive CEFTIN 250 MG ORAL TABLET 1 tablet twice daily x 7 days CEFTIN 250 MG ORAL TABLET CEFUROXIME AXETIL Inactive CYMBALTA 30 MG ORAL CAPSULE DELAYED RELEASE PARTICLES 1 cap by mouth daily with 60mg CYMBALTA 30 MG ORAL CAPSULE DELAYED RELEASE PARTICLES 225549 DULOXETINE HCL Inactive CYMBALTA 60 MG ORAL CAPSULE DELAYED RELEASE PARTICLES Take 1 tablet by mouth daily CYMBALTA 60 MG ORAL CAPSULE DELAYED RELEA SE PARTICLES 410264 DULOXETINE HCL Inactive FOSAMAX 70 MG ORAL TABLET 1 po qweek. Take 30min prio r to first food/drink. Avoid lying down x 1 hour. FOSAMAX 70 MG ORAL TA BLET 869033 ALENDRONATE SODIUM Inactive DIFLUCAN 100 MG ORAL TABLET 1 tablet by mouth daily 20 19/08/26 DIFLUCAN 100 MG ORAL TABLET 19760711 FLUCONAZOLE Inactive PREDNISONE 20 MG ORAL TABLET 1 tab twice daily for 3 d ay, then one daily for three days PREDNISONE 20 MG ORAL TABLET 128444 PREDNIS ONE Inactive PROAIR HFA 108 (90 BASE) MCG/ACT INHALATION AEROSOL SO LUTION 1 puff every 6 hours as needed PROAIR HFA 108 (90 B ASE) MCG/ACT INHALATION AEROSOL SOLUTION ALBUTEROL SULFATE Inactive MECLIZINE HCL 25 MG ORAL TABLET one tab po qday prn dizziness 20 17/09/06 MECLIZINE HCL 25 MG ORAL TABLET 334316 MECLIZINE HCL Inactive PREDNISONE 20 MG ORAL TABLET 1 tablet by mouth twice d aily for 3 days, then 1 tablet daily for 3 days PREDNISONE 20 MG ORAL TA BLET 546006 PREDNISONE Inactive DIFLUCAN 100 MG ORAL TABLET 1 tablet by mouth daily 20 20/06/06 DIFLUCAN 100 MG ORAL TABLET 19760711 FLUCONAZOLE Inactive REPHRESH PRO-B ORAL CAPSULE 1 tablet daily REPHRESH PRO-B ORAL CAPSULE LACTOBACILLUS Inactive RED YEAST RICE 600 MG ORAL CAPSULE 1 pill by mouth daily RED YEAST RICE 600 MG ORAL CAPSULE 984970 RED YEAST RICE EXTRACT In active SUDAFED [...] 20 19/02/09 DIFLUCAN 100 MG ORAL TABLET 569544 FLUCONAZOLE Inactive VENLAFAXINE HCL 75 MG ORAL TABLET 1 am 1/2 at noon 201 07/07/09 VENLAFAXINE HCL 75 MG ORAL TABLET 102979 VENLAFAXINE HCL Inacti ve GABAPENTIN 300 MG ORAL CAPSULE 1 po daily GABAPENTIN 300 MG ORAL CAPSULE 373675 GABAPENTIN Inactive SUDAFED 12 HOUR 120 MG ORAL TABLET EXTENDED RELEASE 12 HOUR 1 pill twice daily if needed for congestion SUDAFED 12 HOUR 120 MG ORAL TABLET EXTENDED RELEASE 12 HOUR PSEUDOEPHEDRINE HCL Inactive AMITRIPTYLINE HCL 10 MG ORAL TABLET 1 tablet nightly by mout h for neuropathy AMITRIPTYLINE HCL 10 MG ORAL TABLET 222859 AMITRIPTYLINE HCL Inactive AMITRIPTYLINE HCL 50 MG ORAL TABLET 1 po q hs for sleep AMITRIPTYLINE HCL 50 MG ORAL TABLET 924209 AMITRIPTYLINE HCL Inac tive PREDNISONE 20 MG ORAL TABLET 1 tab twice daily for 3 d ay, then one daily for three days PREDNISONE 20 MG ORAL TABLET 095978 PREDNIS ONE Inactive ROPINIROLE HCL 0.25 MG ORAL TABLET 1 TAB PO Q HS 05/31 ROPINIROLE HCL 0.25 MG ORAL TABLET 615467 ROPINIROLE HCL Inact trent ROPINIROLE HCL 0.5 MG ORAL TABLET 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 ROPINIROLE HCL 0.5 MG ORAL TABLET 682672 ROPINIR OLE HCL Inactive ROPINIROLE HCL 1 MG ORAL TABLET 1 tab po q hs ROPINIROLE HCL 1 MG ORAL TABLET 607753 ROPINIROLE HCL Inactive ROPINIROLE HCL 2 MG ORAL TABLET 1 po at hs 7 ROPINIROLE HCL 2 MG ORAL TABLET 862851 ROPINIROLE HCL Inactive MIRAPEX 0.125 MG ORAL TABLET 1 po nightly MIRAPEX 0.125 MG ORAL TABLET 778022 PRAMIPEXOLE DIHYDROCHLORIDE Inactive MIRAPEX 0.25 MG ORAL TABLET 1 tablet by mouth at night for r estless leg MIRAPEX 0.25 MG ORAL TABLET 705211 PRAM IPEXOLE DIHYDROCHLORIDE Inactive HYDROXYZINE HCL 25 MG ORAL TABLET 1 tab po at HS prn sleep 08/02 HYDROXYZINE HCL 25 MG ORAL TABLET 264023 HYDROXYZINE HC L Inactive DIFLUCAN 100 MG ORAL TABLET 1 tablet by mouth daily 20 21/08/28 DIFLUCAN 100 MG ORAL TABLET 179842 FLUCONAZOLE Inactive BACLOFEN 10 MG ORAL TABLET Take one tablet by mouth three times a day BACLOFEN 10 MG ORAL TABLET 993761 BACLOFEN Inact trent PREDNISONE 20 MG ORAL TABLET 1 tab twice daily for 3 d ay, then one daily for three days PREDNISONE 20 MG ORAL TABLET 845137 PREDNIS ONE Inactive UNISOM SLEEPMELTS 25 MG [...] 03/03/23 BACTRIM DS 800-160 MG ORAL TABLET 575979 TRIMETHOPRIM-SULFAMETHOXAZOLE Inactive ZITHROMAX 250 MG ORAL TABLET 2 po today, then 1 po q days 2-5 20 15/02/10 ZITHROMAX 250 MG ORAL TABLET 051289 AZITHROMYCIN Mayela ctive BACTRIM DS 800-160 MG ORAL TABLET 1 tab by mouth twice daily 201 04/04/11 BACTRIM DS 800-160 MG ORAL TABLET 420911 TRIMETHOPRIM-SULFAMETHOXAZOLE Inactive BACTRIM DS 800-160 MG ORAL [...] a day AMOXICILLIN 500 MG ORAL CAPSULE 570725 AMOXICILLIN Inactive ZITHROMAX 250 MG ORAL TABLET 2 po today, then 1 po q days 2-5 20 20/04/28 ZITHROMAX 250 MG ORAL TABLET 290549 AZITHROMYCIN [place] ctive DIFLUCAN 100 MG ORAL TABLET 1 [...] 9/05/06 BACTRIM DS 800-160 MG ORAL TABLET 695950 TRIMETHOPRIM-SULFAMETHOXAZOLE Inactive DIFLUCAN 100 MG ORAL TABLET 1 tablet by mouth daily 21/03/11 DIFLUCAN 100 MG ORAL TABLET 19760711 FLUCONAZOLE Inactive ZITHROMAX 250 MG ORAL TABLET 2 po today, then 1 po q days 2-5 20 21/08/28 ZITHROMAX 250 MG ORAL TABLET 622186 AZITHROMYCIN Mayela ctive FLUCONAZOLE 100 MG ORAL [...] LIVING WILL ON FILE DURABLE 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 Vital Signs Date Name [...] Magnesium - Chemistry cholesterol, serum 196 mg/dL 092-866 7376/07/30 triglyceride, serum, fasting 86 mg/dL 30-200 HDL cholesterol, serum 41 mg/dL 32-60 LDL cholesterol, serum 138 mg/dL 0-130 sodium, serum 140 mmol/L 759-058 2392/07/30 carbon dioxide, venous blood 28.6 mmol/L 21.0-32 [...] 5.0-8.5 Encounters Code Encounter Date Provider Facility CPT-72541 [id number] Vst-Est Level IV 10:36:10 C BRIDGET Sherman MD [facility]-12517 [id number] Vst-Est Level IV 13:49:08 [facility] 58067-Qqp Vst-Est Level IV 11:39:[address] Tesfaye Sherman MD [facility]-71695 24207-Pwr Vst-Est Level IV 14:08:03 C BRIDGET Sherman MD [facility]-12042 Level 3 Est. Patient 18:06:36 CDT Tesfaye pearson MD [facility]-21229 86969-Pkr Vst-Est Level IV 17:09:34 C BRIDGET Sherman MD [facility]-58811 Level 3 Est. 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 Patient 22:18:12 CDT Tesfaye pearson MD [facility]-14024 Level 4 Est. Patient 14:44:33 SOOT BLOWER Tesfaye pearson MD [facility]-59753 Level 4 Est. Patient 13:55:29 SOOT BLOWER Tesfaye pearson MD [facility]-70415 Level 4 Est. Patient 17:07:34 SOOT BLOWER Tesfaye pearson MD [facility]-54961 Level 4 Est. Patient 13:56:54 CDT Tesfaye pearson MD [facility]-18330 Level 4 Est. Patient 13:24:25 CDT Chelsea sanz APRN [facility] CPT-93114 Level 4 Est. Patient 09:14:56 CDT Tesfaye pearson MD [facility]-95796 Level 4 Est. Patient 18:40:25 SOOT BLOWER Tesfaye pearson MD [facility]-93813 Level 4 Est. Patient 18:13:07 SOOT BLOWER Tesfaye pearson MD [facility]-56186 Level 3 Est. Patient 10:46:32 CDT Rj cotto DO [facility] CPT-82233 Level 4 Est. Patient 20:19:25 CDT Tesfaye pearson MD [facility]-99661 Level 3 Est. Patient 09:07:31 CDT Tesfaye pearson MD [facility]-48395 Level 4 Est. Patient 13:12:56 CDT Tesfaye pearson MD [facility]-19536 Level 4 Est. Patient 21:24:55 SOOT BLOWER Tesfaye pearson MD [facility] CPT-62387 Level 3 Est. Patient 13:45:04 SOOT BLOWER Tesfaye pearson MD [facility] CPT-63372 Level 4 Est. Patient 13:50:45 CDT Tesfaye pearson MD [facility] CPT-13777 Level 3 Est. Patient 10:16:10 CDT Tesfaye pearson MD [facility] CPT-68007 Level 3 Est. Patient 16:36:07 SOOT BLOWER Kayla jameson MD [facility] CPT-14860 Level 4 Est. Patient 16:00:14 SOOT BLOWER Tesfaye pearson MD [facility]-30971 Level 4 Est. Patient 11:02:24 SOOT BLOWER Tesfaye pearson MD [facility] CPT-67903 Level 3 Est. Patient 20:21:43 SOOT BLOWER Kayla jameson MD [facility] CPT-16292 Level 3 Est. Patient 13:27:28 SOOT BLOWER Kayla jameson MD [facility] CPT-05758 Level 4 Est. Patient 15:57:17 SOOT BLOWER Tesfaye pearson MD [facility] CPT-22986 Level 3 New Patient 13:25:47 CDT Tesfaye kidd MD [facility] CPT-52011 Level 3 New Patient 17:22:21 CDT Kayla angel MD [facility] Procedures Code Procedure Name Date Entry Date Standard Desc ription CPT-27540 Prv Med Est Pt 40-64yrs 09:01:58 CDT 03/09 CPT-G0439 [facility] Annual Wellness Exam 11:25:51 CDT [id number] ([id number] 2P) Patient Reason Influenza immu nization not administered 13:25:19 SOOT BLOWER CPT-52540 Bone Density - XRAY USE ONLY 15:21:33 CDT 2 CPT-17433 Venipuncture Draw Fee 16:12:22 CDT CPT-G0439 Subsequent Annual Wellness Exam 18:06:36 CDT CPT-G0439 Subsequent Annual Wellness Exam 22:18:11 CDT CPT-38305 Bone Density - XRAY USE ONLY 11:43:58 CDT 2 CPT-00859 Bone Density - XRAY USE ONLY 10:05:16 CDT 2 CPT-44056 Prv Med New Pt 40-64 yrs 18:19:25 CDT 2016 CPT-94319 Foot, right, comp min 3V - XRAY USE ONLY 10:38:34 CDT CPT-G0439 Subsequent Annual Wellness Exam 13:55:04 CDT CPT-G0438 Initial Annual Wellness Exam 11:23:17 CD T CPT-J2930 Solu Medrol 125 mg (Methyl Prednisolone Sodium Succinate) 17:29:12 SOOT BLOWER CPT-23991 Abx/Therapy Injection 17:29:11 SOOT BLOWER CPT-J2930 Solu Medrol 125 mg (Methyl Prednisolone Sodium Succinate) 12:34:38 SOOT BLOWER CPT-J3420 Vitamin B12 1000mcg (Cyanocobalamin) 09:12:55 CDT CPT-J3420 Vitamin B12 1000mcg (Cyanocobalamin) 16:28:06 SOOT BLOWER CPT-65590 Venipuncture Draw Fee 08:39:53 CDT CPT-J3420 Vitamin B12 1000mcg (Cyanocobalamin) 08:46:22 CDT CPT-79347 Abx/Therapy Injection 08:46:22 CDT CPT-J3420 Vitamin B12 1000mcg (Cyanocobalamin) 08:41:26 CDT CPT-58406 Abx/Therapy Injection 08:41:26 CDT CPT-J3420 Vitamin B12 1000mcg (Cyanocobalamin) 08:57:15 CDT CPT-20761 Abx/Therapy Injection 08:57:15 CDT CPT-J3420 Vitamin B12 1000mcg (Cyanocobalamin) 10:59:03 CDT CPT-11555 Abx/Therapy Injection 10:59:03 CDT CPT-J3420 Vitamin B12 1000mcg (Cyanocobalamin) 15:05:39 CDT CPT-99920 Abx/Therapy Injection 15:05:39 CDT CPT-J3420 Vitamin B12 1000mcg (Cyanocobalamin) 13:50:45 CDT CPT-J3420 Vitamin B12 1000mcg (Cyanocobalamin) 08:48:55 CDT CPT-52183 Abx/Therapy Injection 08:48:55 CDT CPT-J3420 Vitamin B12 1000mcg (Cyanocobalamin) 09:14:54 CDT CPT-16137 Abx/Therapy Injection 09:14:54 CDT CPT-J3420 Vitamin B12 1000mcg (Cyanocobalamin) 09:06:06 CDT CPT-01913 Abx/Therapy Injection 09:06:06 CDT CPT-J3420 Vitamin B12 1000mcg (Cyanocobalamin) 09:49:14 CDT CPT-29852 Abx/Therapy Injection 09:49:14 CDT CPT-J3420 Vitamin B12 1000mcg (Cyanocobalamin) 09:10:30 SOOT BLOWER CPT-87181 Abx/Therapy Injection 09:10:30 SOOT BLOWER CPT-J3420 Vitamin B12 1000mcg (Cyanocobalamin) 09:11:07 SOOT BLOWER CPT-68981 Abx/Therapy Injection 09:11:07 SOOT BLOWER CPT-J3420 Vitamin B12 1000mcg (Cyanocobalamin) 09:57:03 SOOT BLOWER CPT-78426 Abx/Therapy Injection 09:57:03 SOOT BLOWER CPT-J3420 Vitamin B12 1000mcg (Cyanocobalamin) 09:23:21 SOOT BLOWER CPT-33502 Abx/Therapy Injection 09:23:21 SOOT BLOWER CPT-62570 Urine Dip (Floor Use Only) 20:21:44 SOOT BLOWER 201 02/12/11 CPT-87040 UA Dip Auto (Floor Use Only) 10:04:39 SOOT BLOWER 2 CPT-26066 Urine Dip (Floor Use Only) 13:27:28 SOOT BLOWER 201 02/12/01 CPT-44607 Bladder Scan 13:27:28 SOOT BLOWER CPT-07996 Abd single AP View 14:30:51 SOOT BLOWER CPT-OV Office Visit 10:15:43 CDT CPT-31856 Urine Dip (Floor Use Only) 17:22:21 CDT 201 02/09/02 CPT-48889 Bladder Scan 17:22:21 CDT
--- OUTSIDE RECORDS SUMMARY | 2020-05-05 12:01 | XMS REPORT | Clinical Summary ---
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 PRAMIPEXOLE DIHYDROCHLORIDE [id number] Acti ve Tesfaye Sherman MD Active DIFLUCAN 100 MG ORAL TABLET 1 tablet by mouth daily 20 23/12/05 FLUCONAZOLE 06225913269 No Longer Active Tesfaye Sherman MD Acti ve [facility] NIACIN FLUSH FREE 400-100 MG ORAL CAPSULE 1 daily NIACIN-INOSITOL 22746393874 No Longer Active Tesfaye Sherman MD A ctive FISH OIL 1000 MG ORAL CAPSULE DELAYED RELEASE 1 pill b y mouth daily for cholesterol OMEGA-3 FATTY ACIDS 55963093276 No Longe r Active Tesfaye Sherman MD Active UNISOM SLEEPMELTS 25 MG ORAL TABLET DISINTEGRATING 1.5 po q hs DIPHENHYDRAMINE HCL (SLEEP) 65817053093 No Longer Active Venkata Sherman MD Active PREDNISONE 20 MG ORAL TABLET 1 tab twice daily for 3 d ay, then one daily for three days PREDNISONE 51631431199 No Longer Active Tesfaye Sherman MD Active BACLOFEN 10 MG ORAL TABLET Take one tablet by mouth three times a day BACLOFEN 04395538065 No Longer Active Tesfaye Sherman MD Active LIDOCAINE 4 % EXTERNAL CREAM Apply to back prn pain LIDOCAINE 50323997156 Active Tesfaye Sherman MD Active TIZANIDINE HCL 2 MG ORAL TABLET 2 Mg in the AM and 6mg q hs 07/05 TIZANIDINE HCL 22601675372 Active Tesfaye Sherman MD Active HYDROXYZINE HCL 25 MG TABS TAKE 1 TABLET BY MOUTH AT B EDTIME NEEDED FOR SLEEP HYDROXYZINE HCL 81081968707 Active JOSHUA Lindsay Active FLUCONAZOLE 100 MG ORAL TABLET 1 by mouth daily for yeast infect ion FLUCONAZOLE 19743183792 No Longer Active Laurence Dominguez Acti ve ZITHROMAX 250 MG ORAL TABLET 2 po today, then 1 po q days 2-5 20 21/08/28 AZITHROMYCIN 31135528170 No Longer Active Tesfaye Sherman MD Active DIFLUCAN 100 MG ORAL TABLET 1 tablet by mouth daily 20 21/08/28 FLUCONAZOLE 51073491093 No Longer Active Tesfaye Sherman MD Acti ve HYDROXYZINE HCL 25 MG ORAL TABLET 1 tab po at HS prn sleep 08/02 HYDROXYZINE HCL 86658048956 No Longer Active Tesfaye Sherman MD Active MIRAPEX 0.5 MG ORAL TABLET 1 tablet at night for restless leg. 2018 PRAMIPEXOLE DIHYDROCHLORIDE 89270612325 Active Laurenceyohana Dominguez Active MIRAPEX 0.25 MG ORAL TABLET 1 tablet by mouth at night for r estless leg PRAMIPEXOLE DIHYDROCHLORIDE 39376323442 No Longer Act trent Laurence Raida Active MIRAPEX 0.125 MG ORAL TABLET 1 po nightly PRAMIPEXOLE DIHYDROCHLORIDE 86250183556 No Longer Active Laurenceyohana Dominguez Active ROPINIROLE HCL 2 MG ORAL TABLET 1 po at hs ROPI NIROLE HCL 55666901490 No Longer Active Laurenceyohana Dominguez Active ROPINIROLE HCL 1 MG ORAL TABLET 1 tab po q hs ROPINIROLE HCL 42669909530 No Longer Active Laurence Dominguez Active ROPINIROLE HCL 0.5 MG ORAL TABLET 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 ROPINIROLE HCL 50181155624 No Longer Active MARCUS Panchal Active ROPINIROLE HCL 0.25 MG ORAL TABLET 1 TAB PO Q HS 05/31 ROPINIROLE HCL 15788928715 No Longer Active Tesfaye Sherman MD Ac tive PREDNISONE 20 MG ORAL TABLET 1 tab twice daily for 3 d ay, then one daily for three days PREDNISONE 24997450681 No Longer Active Tesfaye Sherman MD Active AMITRIPTYLINE HCL 50 MG ORAL TABLET 1 po q hs for sleep AMITRIPTYLINE HCL 47574173761 No Longer Active Tesfaye Sherman MD Active AMITRIPTYLINE HCL 10 MG ORAL TABLET 1 tablet nightly by mout h for neuropathy AMITRIPTYLINE HCL 62500901069 No Longer Active MARCUS Stapleton Active DIFLUCAN 100 MG ORAL TABLET 1 tablet by mouth daily 20 21/03/11 FLUCONAZOLE 71612663660 No Longer Active Tesfaye Sherman MD Acti ve BACTRIM DS 800-160 MG ORAL TABLET 1 tab by mouth twice daily 201 07/08/06 TRIMETHOPRIM-SULFAMETHOXAZOLE 80830327722 No Longer Active D patricia Sherman MD Active CLARITIN 10 MG ORAL TABLET Take one by mouth daily LORATADINE 96195573941 Active Tesfaye Sherman MD Active SUDAFED 12 HOUR 120 MG ORAL TABLET EXTENDED RELEASE 12 HOUR 1 pill twice daily if needed for congestion PSEUDOEPHEDRINE HCL 814475160 13 No Longer Active Tesfaye Sherman MD Active FENOFIBRATE 145 MG ORAL TABLET 1 by mouth daily FENOFIBRATE 46599232791 Active Laurence Dominguez Active GABAPENTIN 300 MG ORAL CAPSULE 1 po daily GABAP ENTIN 89135818326 No Longer Active Tesfaye Sherman MD Active HYDROCHLOROTHIAZIDE 12.5 MG ORAL CAPSULE 1 pill by mough daily 2 HYDROCHLOROTHIAZIDE 60529546612 No Longer Active León Mariee APRN Active VENLAFAXINE HCL 75 MG ORAL TABLET 1 am 1/2 at noon 201 07/07/09 VENLAFAXINE HCL 51174385864 No Longer Active León Mariee APRN Act trent DIFLUCAN 100 MG ORAL TABLET 1 tablet by mouth daily 20 19/02/09 FLUCONAZOLE 62942551419 No Longer Active León Kodi [employer] R[employer]ER Active DIFLUCAN 100 MG ORAL TABLET 1 tablet by mouth daily 20 19/02/09 FLUCONAZOLE 08816171493 No Longer Active León Mariee APRN Active OXYCODONE-ACETAMINOPHEN 5-325 MG ORAL TABLET Take one tablet by mouth every 6 hours 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 Use sparingly OXYCODONE-ACETAMINOPHEN 35091403703 Active Tesfaye villar MD Active CLONAZEPAM 0.5 MG ORAL TABLET Take 1/2 qam, and 1/2 qpm CLONAZEPAM 10366096087 Active Tesfaye Sherman MD Active PRELIEF 340 (65-50) MG (CA-P) ORAL TABLET CALCIUM GLYCEROPHOSPHATE 21483564876 No Longer Active Tesfaye Sherman MD Active SUDAFED 24 HOUR 240 MG ORAL TABLET EXTENDED RELEASE 24 HOUR 1 tab po daily PSEUDOEPHEDRINE HCL 99250262588 No Longer Active Raul yanet Sherman MD Active RED YEAST RICE 600 MG ORAL CAPSULE 1 pill by mouth daily RED YEAST RICE EXTRACT 52624623593 No Longer Active Tesfaye Sherman MD Active REPHRESH PRO-B ORAL CAPSULE 1 tablet daily LACT OBACILLUS 48105692794 No Longer Active Tesfaye Sherman MD Active ABILIFY 2 MG ORAL TABLET 1 by mouth daily. MARIA ELENA PIPRAZOLE 17467145248 Active Tesfaye Sherman MD Active CYMBALTA 60 MG ORAL CAPSULE DELAYED RELEASE PARTICLES 1 cap by mouth daily for pain DULOXETINE HCL 74944689505 Active MARCUS Lindsay Active DIFLUCAN 100 MG ORAL TABLET 1 tablet by mouth daily 20 20/06/06 FLUCONAZOLE 15387659637 No Longer Active Tesfaye Sherman MD Acti ve PREDNISONE 20 MG ORAL TABLET 1 tablet by mouth twice d aily for 3 days, then 1 tablet daily for 3 days PREDNISONE 87082147592 No L onger Active Tesfaye Sherman MD Active BACTRIM DS 800-160 MG ORAL TABLET 1 tab by mouth twice daily 201 06/09/02 TRIMETHOPRIM-SULFAMETHOXAZOLE 37430488180 No Longer Active Fer mastersa Angelica Active DIFLUCAN 100 MG ORAL TABLET 1 tablet by mouth daily 20 20/05/01 FLUCONAZOLE 96254232725 No Longer Active Tesfaye Sherman MD Acti ve ZITHROMAX 250 MG ORAL TABLET 2 po today, then 1 po q days 2-5 20 20/04/28 AZITHROMYCIN 20943205904 No Longer Active Tesfaye Sherman MD Active MECLIZINE HCL 25 MG ORAL TABLET one tab po qday prn dizziness 20 17/09/06 MECLIZINE HCL 70549289556 No Longer Active Tesfaye Sherman MD Active PROAIR HFA 108 (90 BASE) MCG/ACT INHALATION AEROSOL SO LUTION 1 puff every 6 hours as needed ALBUTEROL SULFATE 28800789999 No Long er Active Tesfaye Sherman MD Active PREDNISONE 20 MG ORAL TABLET 1 tab twice daily for 3 d ay, then one daily for three days PREDNISONE 70368139319 No Longer Active Tesfaye Sherman MD Active MECLIZINE HCL 25 MG ORAL TABLET one 4 times a day as needed for dizziness MECLIZINE HCL 43130808339 Active Tesfaye Sherman MD Active AMOXICILLIN 500 MG ORAL CAPSULE 1 cap by mouth three times a day AMOXICILLIN 34939534372 No Longer Active Laurence Angelica Acti ve DIFLUCAN 100 MG ORAL TABLET 1 tablet by mouth daily 20 19/08/26 FLUCONAZOLE 06622746530 No Longer Active Tesfaye Sherman MD Acti ve BACTRIM DS 800-160 MG ORAL TABLET 1 tab by mouth twice daily 201 05/10/28 TRIMETHOPRIM-SULFAMETHOXAZOLE 02265838487 No Longer Active A mirna Dominguez Active FOSAMAX 70 MG ORAL TABLET 1 po qweek. Take 30min prio r to first food/drink. Avoid lying down x 1 hour. ALENDRONATE SODIUM 05861692 144 No Longer Active Laurence Dominguez Active CYMBALTA 60 MG ORAL CAPSULE DELAYED RELEASE PARTICLES Take 1 tablet by mouth daily DULOXETINE HCL 21709901396 No Longer Active Edith Burch MD Active CYMBALTA 30 MG ORAL CAPSULE DELAYED RELEASE PARTICLES 1 cap by mouth daily with 60mg DULOXETINE HCL 72156952263 No Longer Active Jordan Burch MD Active DIFLUCAN 100 MG ORAL TABLET 1 tablet by mouth daily 19/03/05 FLUCONAZOLE 03608284252 No Longer Active Tesfaye Sherman MD Acti ve BACTRIM DS 800-160 MG ORAL TABLET 1 tab by mouth twice daily 201 05/06/28 TRIMETHOPRIM-SULFAMETHOXAZOLE 60619101465 No Longer Active Yanet Sherman MD Active BACTRIM DS 800-160 MG ORAL TABLET 1 tab by mouth twice daily 201 05/04/15 TRIMETHOPRIM-SULFAMETHOXAZOLE 55044930762 No Longer Active Yanet Sherman MD Active DIFLUCAN 150 MG ORAL TABLET 1 tablet by mouth daily 20 18/09/20 FLUCONAZOLE 99275976916 No Longer Active Tesfaye Sherman MD Acti ve BACTRIM DS 800-160 MG ORAL TABLET 1 tab by mouth twice daily 201 04/13/17 TRIMETHOPRIM-SULFAMETHOXAZOLE 80820439169 No Longer Active Yanet Sherman MD Active CEFTIN 250 MG ORAL TABLET 1 tablet twice daily x 7 days CEFUROXIME AXETIL 11918208874 No Longer Active Tesfaye Sherman MD Active DIFLUCAN 100 MG ORAL TABLET 1 tablet by mouth every other da y for 2 doses FLUCONAZOLE 66327335687 No Longer Active Tesfaye barron MD Active DIFLUCAN 100 MG ORAL TABLET 1 tablet by mouth daily X 3 DAYS 201 04/09/01 FLUCONAZOLE 66232195609 No Longer Active Rj Moss DO Ac tive MIRTAZAPINE 15 MG ORAL TABLET 1/2 tab by mouth at bedtime. 03/13 MIRTAZAPINE 64866439203 No Longer Active Tesfaye Sherman MD Active BACTRIM DS 800-160 MG ORAL TABLET 1 tab by mouth twice daily 201 04/09/01 TRIMETHOPRIM-SULFAMETHOXAZOLE 57865044962 No Longer Active Yanet Sherman MD Active PRAMIPEXOLE DIHYDROCHLORIDE 0.125 MG ORAL TABLET take 1 tablet po qhs for restless leg syndrome. PRAMIPEXOLE DIHYDROCHLORI DE 50872889918 No Longer Active Tesfaye Sherman MD Active MAGNESIUM 400 MG ORAL TABLET 1 tab po daily MAGNE SIUM 46464702087 Active Chelsea Cardenas APRN Active CETIRIZINE HCL 5 MG ORAL TABLET Take 1 tablet by mouth daily CETIRIZINE HCL 92960739675 No Longer Active Chelsea Cardenas APRN Activ e TRIMETHOPRIM 100 MG ORAL TABLET 1/2 qd TRIM ETHOPRIM 92470406392 No Longer Active Chelsea Cardenas APRN Active BACTRIM DS 800-160 MG ORAL TABLET 1 tab by mouth twice daily 201 04/04/11 TRIMETHOPRIM-SULFAMETHOXAZOLE 21712750360 No Longer Active Yanet Sherman MD Active BACTRIM DS 800-160 MG ORAL TABLET 1 tab by mouth twice daily X 10 DAYS TRIMETHOPRIM-SULFAMETHOXAZOLE 77295611670 No Longer Active Tesfaye Sherman MD Active AMOXICILLIN 500 MG ORAL CAPSULE 1 cap by mouth three times a day AMOXICILLIN 50711567458 No Longer Active Adriana Arredondo, MARCUS A ctive B-12 1000 MCG ORAL LOZENGE 1 tab po daily CYANO COBALAMIN 30287322560 Active Tesfaye Sherman MD Active VITAMIN D3 2000 UNIT ORAL TABLET 1 daily, for vitamin D deficien cy CHOLECALCIFEROL 08287858522 No Longer Active Tesfaye Sherman MD Active ZITHROMAX 250 MG ORAL TABLET 2 po today, then 1 po q days 2-5 20 15/02/10 AZITHROMYCIN 96455596841 No Longer Active Tesfaye Sherman MD Active BACTRIM DS 800-160 MG ORAL TABLET 1 tab by mouth twice daily 201 03/03/23 TRIMETHOPRIM-SULFAMETHOXAZOLE 48184317289 No Longer Active Yanet Sherman MD Active DIFLUCAN 150 MG ORAL TABLET 1 qd FLUCONAZOL E 96283429126 No Longer Active Kayla Cooper MD Active FLUTICASONE PROPIONATE 50 MCG/ACT NASAL SUSPENSION 1 spray each nostril twice daily FLUTICASONE PROPIONATE 65319402706 Active Yanet Sherman MD Active LOVASTATIN 20 MG ORAL TABLET Take 1 tablet by mouth daily LOVASTATIN 92972124486 No Longer Active Tesfaye Sherman MD Acti ve MELOXICAM 7.5 MG ORAL TABLET 1 tablet by mouth daily 2 MELOXICAM 16419630672 No Longer Active Tesfaye Sherman MD Acti ve GABAPENTIN 300 MG ORAL CAPSULE Take two tablets by mouth every e vening GABAPENTIN 97013932301 No Longer Active Edith Burch MD A ctive GABAPENTIN 300 MG ORAL CAPSULE Take two tablets by mouth every e vening GABAPENTIN 300 MG ORAL CAPSULE 320280 GABAPENTIN I nactive MELOXICAM 7.5 MG ORAL TABLET 1 tablet by mouth daily 2 MELOXICAM 7.5 MG ORAL TABLET 663505 MELOXICAM Inactive LOVASTATIN 20 MG ORAL TABLET Take 1 tablet by mouth daily LOVASTATIN 20 MG ORAL TABLET 727322 LOVASTATIN Inactive DIFLUCAN 150 MG ORAL TABLET 1 qd DIFLUCAN 150 MG ORAL TABLET 309449 FLUCONAZOLE Inactive VITAMIN D3 2000 UNIT ORAL TABLET 1 daily, for vitamin D deficien cy VITAMIN D3 2000 UNIT ORAL TABLET CHOLECALCIFEROL Inactive AMOXICILLIN 500 MG ORAL CAPSULE 1 cap by mouth three times a day AMOXICILLIN 500 MG ORAL CAPSULE 137481 AMOXICILLIN Inactive BACTRIM DS 800-160 MG ORAL TABLET 1 tab by mouth twice daily X 10 DAYS BACTRIM DS 800-160 MG ORAL TABLET 718677 TRIMETHOPRIM-SULFAMETHOXAZOLE Inactive TRIMETHOPRIM 100 MG ORAL TABLET 1/2 qd 7 TRIMETHOPRIM 100 MG ORAL TABLET 956219 TRIMETHOPRIM Inactive CETIRIZINE HCL 5 MG ORAL TABLET Take 1 tablet by mouth daily CETIRIZINE HCL 5 MG ORAL TABLET 1924991 CETIRIZINE HCL Inactive PRAMIPEXOLE DIHYDROCHLORIDE 0.125 MG ORAL TABLET take 1 tablet po qhs for restless leg syndrome. PRAMIPEXOLE DIHYD ROCHLORIDE 0.125 MG ORAL TABLET 164549 PRAMIPEXOLE DIHYDROCHLORIDE Inactive MIRTAZAPINE 15 MG ORAL TABLET 1/2 tab by mouth at bedtime. 03/13 MIRTAZAPINE 15 MG ORAL TABLET 733238 MIRTAZAPINE In active DIFLUCAN 100 MG ORAL TABLET 1 tablet by mouth daily X 3 DAYS 201 04/09/01 DIFLUCAN 100 MG ORAL TABLET 964425 FLUCONAZOLE Inac tive DIFLUCAN 100 MG ORAL TABLET 1 tablet by mouth every other da y for 2 doses DIFLUCAN 100 MG ORAL TABLET 765373 FLUCONAZOLE Inactive CEFTIN 250 MG ORAL TABLET 1 tablet twice daily x 7 days CEFTIN 250 MG ORAL TABLET CEFUROXIME AXETIL Inactive CYMBALTA 30 MG ORAL CAPSULE DELAYED RELEASE PARTICLES 1 cap by mouth daily with 60mg CYMBALTA 30 MG ORAL CAPSULE DELAYED RELEASE PARTICLES 525044 DULOXETINE HCL Inactive CYMBALTA 60 MG ORAL CAPSULE DELAYED RELEASE PARTICLES Take 1 tablet by mouth daily CYMBALTA 60 MG ORAL CAPSULE DELAYED RELEA SE PARTICLES 536784 DULOXETINE HCL Inactive FOSAMAX 70 MG ORAL TABLET 1 po qweek. Take 30min prio r to first food/drink. Avoid lying down x 1 hour. FOSAMAX 70 MG ORAL TA BLET 448374 ALENDRONATE SODIUM Inactive DIFLUCAN 100 MG ORAL TABLET 1 tablet by mouth daily 20 19/08/26 DIFLUCAN 100 MG ORAL TABLET 19760711 FLUCONAZOLE Inactive PREDNISONE 20 MG ORAL TABLET 1 tab twice daily for 3 d ay, then one daily for three days PREDNISONE 20 MG ORAL TABLET 807975 PREDNIS ONE Inactive PROAIR HFA 108 (90 BASE) MCG/ACT INHALATION AEROSOL SO LUTION 1 puff every 6 hours as needed PROAIR HFA 108 (90 B ASE) MCG/ACT INHALATION AEROSOL SOLUTION ALBUTEROL SULFATE Inactive MECLIZINE HCL 25 MG ORAL TABLET one tab po qday prn dizziness 20 17/09/06 MECLIZINE HCL 25 MG ORAL TABLET 077345 MECLIZINE HCL Inactive PREDNISONE 20 MG ORAL TABLET 1 tablet by mouth twice d aily for 3 days, then 1 tablet daily for 3 days PREDNISONE 20 MG ORAL TA BLET 484875 PREDNISONE Inactive DIFLUCAN 100 MG ORAL TABLET 1 tablet by mouth daily 20 20/06/06 DIFLUCAN 100 MG ORAL TABLET 19760711 FLUCONAZOLE Inactive REPHRESH PRO-B ORAL CAPSULE 1 tablet daily REPHRESH PRO-B ORAL CAPSULE LACTOBACILLUS Inactive RED YEAST RICE 600 MG ORAL CAPSULE 1 pill by mouth daily RED YEAST RICE 600 MG ORAL CAPSULE 374588 RED YEAST RICE EXTRACT In active SUDAFED [...] 20 19/02/09 DIFLUCAN 100 MG ORAL TABLET 301309 FLUCONAZOLE Inactive VENLAFAXINE HCL 75 MG ORAL TABLET 1 am 1/2 at noon 201 07/07/09 VENLAFAXINE HCL 75 MG ORAL TABLET 998991 VENLAFAXINE HCL Inacti ve GABAPENTIN 300 MG ORAL CAPSULE 1 po daily GABAPENTIN 300 MG ORAL CAPSULE 823518 GABAPENTIN Inactive SUDAFED 12 HOUR 120 MG ORAL TABLET EXTENDED RELEASE 12 HOUR 1 pill twice daily if needed for congestion SUDAFED 12 HOUR 120 MG ORAL TABLET EXTENDED RELEASE 12 HOUR PSEUDOEPHEDRINE HCL Inactive AMITRIPTYLINE HCL 10 MG ORAL TABLET 1 tablet nightly by mout h for neuropathy AMITRIPTYLINE HCL 10 MG ORAL TABLET 000898 AMITRIPTYLINE HCL Inactive AMITRIPTYLINE HCL 50 MG ORAL TABLET 1 po q hs for sleep AMITRIPTYLINE HCL 50 MG ORAL TABLET 022690 AMITRIPTYLINE HCL Inac tive PREDNISONE 20 MG ORAL TABLET 1 tab twice daily for 3 d ay, then one daily for three days PREDNISONE 20 MG ORAL TABLET 236502 PREDNIS ONE Inactive ROPINIROLE HCL 0.25 MG ORAL TABLET 1 TAB PO Q HS 05/31 ROPINIROLE HCL 0.25 MG ORAL TABLET 637655 ROPINIROLE HCL Inact trent ROPINIROLE HCL 0.5 MG ORAL TABLET 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 ROPINIROLE HCL 0.5 MG ORAL TABLET 797130 ROPINIR OLE HCL Inactive ROPINIROLE HCL 1 MG ORAL TABLET 1 tab po q hs ROPINIROLE HCL 1 MG ORAL TABLET 415216 ROPINIROLE HCL Inactive ROPINIROLE HCL 2 MG ORAL TABLET 1 po at hs 7 ROPINIROLE HCL 2 MG ORAL TABLET 396848 ROPINIROLE HCL Inactive MIRAPEX 0.125 MG ORAL TABLET 1 po nightly MIRAPEX 0.125 MG ORAL TABLET 680961 PRAMIPEXOLE DIHYDROCHLORIDE Inactive MIRAPEX 0.25 MG ORAL TABLET 1 tablet by mouth at night for r estless leg MIRAPEX 0.25 MG ORAL TABLET 637862 PRAM IPEXOLE DIHYDROCHLORIDE Inactive HYDROXYZINE HCL 25 MG ORAL TABLET 1 tab po at HS prn sleep 08/02 HYDROXYZINE HCL 25 MG ORAL TABLET 660342 HYDROXYZINE HC L Inactive DIFLUCAN 100 MG ORAL TABLET 1 tablet by mouth daily 20 21/08/28 DIFLUCAN 100 MG ORAL TABLET 816362 FLUCONAZOLE Inactive BACLOFEN 10 MG ORAL TABLET Take one tablet by mouth three times a day BACLOFEN 10 MG ORAL TABLET 674168 BACLOFEN Inact trent PREDNISONE 20 MG ORAL TABLET 1 tab twice daily for 3 d ay, then one daily for three days PREDNISONE 20 MG ORAL TABLET 026036 PREDNIS ONE Inactive UNISOM SLEEPMELTS 25 MG [...] 03/03/23 BACTRIM DS 800-160 MG ORAL TABLET 409708 TRIMETHOPRIM-SULFAMETHOXAZOLE Inactive ZITHROMAX 250 MG ORAL TABLET 2 po today, then 1 po q days 2-5 20 15/02/10 ZITHROMAX 250 MG ORAL TABLET 754828 AZITHROMYCIN Mayela ctive BACTRIM DS 800-160 MG ORAL TABLET 1 tab by mouth twice daily 201 04/04/11 BACTRIM DS 800-160 MG ORAL TABLET 215769 TRIMETHOPRIM-SULFAMETHOXAZOLE Inactive BACTRIM DS 800-160 MG ORAL [...] a day AMOXICILLIN 500 MG ORAL CAPSULE 905503 AMOXICILLIN Inactive ZITHROMAX 250 MG ORAL TABLET 2 po today, then 1 po q days 2-5 20 20/04/28 ZITHROMAX 250 MG ORAL TABLET 617139 AZITHROMYCIN Trinity ctive DIFLUCAN 100 MG ORAL TABLET 1 [...] ORAL CAPSULE [facility] LOROTHIAZIDE Inactive BACTRIM DS 800-160 MG ORAL TABLET 1 tab by mouth twice daily 201 9/05/06 BACTRIM DS 800-160 MG ORAL TABLET 050064 TRIMETHOPRIM-SULFAMETHOXAZOLE Inactive DIFLUCAN 100 MG ORAL TABLET 1 tablet by mouth daily 21/03/11 DIFLUCAN 100 MG ORAL TABLET 19760711 FLUCONAZOLE Inactive ZITHROMAX 250 MG ORAL TABLET 2 po today, then 1 po q days 2-5 20 21/08/28 ZITHROMAX 250 MG ORAL TABLET 239542 AZITHROMYCIN Mayela ctive FLUCONAZOLE 100 MG ORAL [...] LIVING WILL ON FILE DURABLE POWER OF DEBT AND BUDGET COUNSELOR FOR HEALTHCARE Vital Signs Date Name Value [...] Magnesium - Chemistry cholesterol, serum 196 mg/dL 045-308 2950/07/30 triglyceride, serum, fasting 86 mg/dL 30-200 HDL cholesterol, serum 41 mg/dL 32-60 LDL cholesterol, serum 138 mg/dL 0-130 sodium, serum 140 mmol/L 835-950 2939/07/30 carbon dioxide, venous blood 28.6 mmol/L 21.0-32 [...] 5.0-8.5 Encounters Code Encounter Date Provider Facility CPT-69964 [id number] Vst-Est Level IV 10:36:10 C BRIDGET Sherman MD [facility]-22918 [id number] Vst-Est Level IV 13:49:08 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 [id number]-Eoj Vst-Est Level IV 11:39:[address] Tesfaye Sherman MD [facility]-40838 54022-Pju Vst-Est Level IV 14:08:03 C BRIDGET Sherman MD [facility]-23955 Level 3 Est. Patient 18:06:36 CDT Tesfaye pearson MD [facility]-37452 72378-Roz Vst-Est Level IV 17:09:34 C BRIDGET Sherman MD [facility]-73509 Level 3 Est. Patient 17:27:08 CDT León hernandez SET RIDER [facility]-79093 48390-Hue Vst-Est Level IV 14:00:[address] Tesfaye Sherman MD [facility]-97524 [id number] Vst-Est Level IV 19:27:[address] Tesfaye Sherman MD [facility]-45354 [id number] Vst-Est Level IV 10:41:41 C DT Tesfaye Sherman MD [facility]-25377 23456-Zop Vst-Est Level III 09:40:56 CDT Tesfaye Sherman MD [facility]-13666 Level 4 Est. Patient 22:18:12 CDT Tesfaye pearson MD [facility]-77958 Level 4 Est. Patient 14:44:33 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 Tesfaye pearson MD [facility]-48353 Level 4 Est. Patient 13:55:29 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 Tesfaye pearson MD [facility]-46138 Level 4 Est. Patient 17:07:34 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 Tesfaye pearson MD [facility]-33382 Level 4 Est. Patient 13:56:54 CDT Tesfaye pearson MD [facility]-65425 Level 4 Est. Patient 13:24:25 CDT Chelsea sanz APRN [facility] CPT-02689 Level 4 Est. Patient 09:14:56 CDT Tesfaye pearson MD [facility]-91770 Level 4 Est. Patient 18:40:25 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 Tesfaye pearson MD [facility]-74436 Level 4 Est. Patient 18:13:07 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 Tesfaye pearson MD [facility]-98648 Level 3 Est. Patient 10:46:32 CDT Rj cotto DO [facility] CPT-04390 Level 4 Est. Patient 20:19:25 CDT Tesfaye pearson MD [facility]-04264 Level 3 Est. Patient 09:07:31 CDT Tesfaye pearson MD [facility]-60309 Level 4 Est. Patient 13:12:56 CDT Tesfaye pearson MD [facility]-14742 Level 4 Est. Patient 21:24:55 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 Tesfaye pearson MD [facility] CPT-16552 Level 3 Est. Patient 13:45:04 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 Tesfaye pearson MD [facility] CPT-23587 Level 4 Est. Patient 13:50:45 CDT Tesfaye pearson MD [facility] CPT-71041 Level 3 Est. Patient 10:16:10 CDT Tesfaye pearson MD [facility] CPT-12753 Level 3 Est. Patient 16:36:07 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 Kayla jameson MD [facility] CPT-12049 Level 4 Est. Patient 16:00:14 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 Tesfaye pearson MD [facility]-68217 Level 4 Est. Patient 11:02:24 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 Tesfaye pearson MD [facility] CPT-77613 Level 3 Est. Patient 20:21:43 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 Kayla jameson MD [facility] CPT-95104 Level 3 Est. Patient 13:27:28 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 Kayla jameson MD [facility] CPT-88940 Level 4 Est. Patient 15:57:17 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 Tesfaye pearson MD [facility] CPT-69385 Level 3 New Patient 13:25:47 CDT Tesfaye kidd MD [facility] CPT-59850 Level 3 New Patient 17:22:21 CDT Kayla angel MD [facility] Procedures Code Procedure Name Date Entry Date Standard Desc ription CPT-73378 Prv Med Est Pt 40-64yrs 09:01:58 CDT 03/09 CPT-G0439 [facility] Annual Wellness Exam 11:25:51 CDT [id number] ([id number] 2P) Patient Reason Influenza immu nization not administered 13:25:19 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 CPT-88593 Bone Density - XRAY USE ONLY 15:21:33 CDT 2 CPT-28804 Venipuncture Draw Fee 16:12:22 CDT CPT-G0439 Subsequent Annual Wellness Exam 18:06:36 CDT CPT-G0439 Subsequent Annual Wellness Exam 22:18:11 CDT CPT-78387 Bone Density - XRAY USE ONLY 11:43:58 CDT 2 CPT-99616 Bone Density - XRAY USE ONLY 10:05:16 CDT 2 CPT-66782 Prv Med New Pt 40-64 yrs 18:19:25 CDT 2016 CPT-40419 Foot, right, comp min 3V - XRAY USE ONLY 10:38:34 CDT CPT-G0439 Subsequent Annual Wellness Exam 13:55:04 CDT CPT-G0438 Initial Annual Wellness Exam 11:23:17 CD T CPT-J2930 Solu Medrol 125 mg (Methyl Prednisolone Sodium Succinate) 17:29:12 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 CPT-20245 Abx/Therapy Injection 17:29:11 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 CPT-J2930 Solu Medrol 125 mg (Methyl Prednisolone Sodium Succinate) 12:34:38 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-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 Vitamin B12 1000mcg (Cyanocobalamin) 09:12:55 CDT CPT-J3420 Vitamin B12 1000mcg (Cyanocobalamin) 16:28:06 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 CPT-80937 Venipuncture Draw Fee 08:39:53 CDT CPT-J3420 Vitamin B12 1000mcg (Cyanocobalamin) 08:46:22 CDT CPT-15301 Abx/Therapy Injection 08:46:22 CDT CPT-J3420 Vitamin B12 1000mcg (Cyanocobalamin) 08:41:26 CDT CPT-99572 Abx/Therapy Injection 08:41:26 CDT CPT-J3420 Vitamin B12 1000mcg (Cyanocobalamin) 08:57:15 CDT CPT-09258 Abx/Therapy Injection 08:57:15 CDT CPT-J3420 Vitamin B12 1000mcg (Cyanocobalamin) 10:59:03 CDT CPT-64849 Abx/Therapy Injection 10:59:03 CDT CPT-J3420 Vitamin B12 1000mcg (Cyanocobalamin) 15:05:39 CDT CPT-23758 Abx/Therapy Injection 15:05:39 CDT CPT-J3420 Vitamin B12 1000mcg (Cyanocobalamin) 13:50:45 CDT CPT-J3420 Vitamin B12 1000mcg (Cyanocobalamin) 08:48:55 CDT CPT-60089 Abx/Therapy Injection 08:48:55 CDT CPT-J3420 Vitamin B12 1000mcg (Cyanocobalamin) 09:14:54 CDT CPT-24603 Abx/Therapy Injection 09:14:54 CDT CPT-J3420 Vitamin B12 1000mcg (Cyanocobalamin) 09:06:06 CDT CPT-92432 Abx/Therapy Injection 09:06:06 CDT CPT-J3420 Vitamin B12 1000mcg (Cyanocobalamin) 09:49:14 CDT CPT-85340 Abx/Therapy Injection 09:49:14 CDT CPT-J3420 Vitamin B12 1000mcg (Cyanocobalamin) 09:10:30 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 CPT-00695 Abx/Therapy Injection 09:10:30 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 CPT-J3420 Vitamin B12 1000mcg (Cyanocobalamin) 09:11:07 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 CPT-64493 Abx/Therapy Injection 09:11:07 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 CPT-J3420 Vitamin B12 1000mcg (Cyanocobalamin) 09:57:03 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 CPT-14466 Abx/Therapy Injection 09:57:03 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 CPT-J3420 Vitamin B12 1000mcg (Cyanocobalamin) 09:23:21 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 CPT-16764 Abx/Therapy Injection 09:23:21 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 CPT-95423 Urine Dip (Floor Use Only) 20:21:44 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 201 02/12/11 CPT-67331 UA Dip Auto (Floor Use Only) 10:04:39 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 2 CPT-93850 Urine Dip (Floor Use Only) 13:27:28 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 201 02/12/01 CPT-96421 Bladder Scan 13:27:28 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 CPT-54869 Abd single AP View 14:30:51 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 CPT-OV Office Visit 10:15:43 CDT CPT-71670 Urine Dip (Floor Use Only) 17:22:21 CDT 201 02/09/02 CPT-86705 Bladder Scan 17:22:21 CDT
--- OUTSIDE RECORDS SUMMARY | 2020-05-05 12:02 | XMS REPORT | Clinical Summary ---
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 PRAMIPEXOLE DIHYDROCHLORIDE [id number] Acti ve Tesfaye Sherman MD Active DIFLUCAN 100 MG ORAL TABLET 1 tablet by mouth daily 20 23/12/05 FLUCONAZOLE 41613404384 No Longer Active Tesfaye Sherman MD Acti ve [facility] NIACIN FLUSH FREE 400-100 MG ORAL CAPSULE 1 daily NIACIN-INOSITOL 64713341357 No Longer Active Tesfaye Sherman MD A ctive FISH OIL 1000 MG ORAL CAPSULE DELAYED RELEASE 1 pill b y mouth daily for cholesterol OMEGA-3 FATTY ACIDS 90700094189 No Longe r Active Tesfaye Sherman MD Active UNISOM SLEEPMELTS 25 MG ORAL TABLET DISINTEGRATING 1.5 po q hs DIPHENHYDRAMINE HCL (SLEEP) 85911484296 No Longer Active Venkata Sherman MD Active PREDNISONE 20 MG ORAL TABLET 1 tab twice daily for 3 d ay, then one daily for three days PREDNISONE 55622526145 No Longer Active Tesfaye Sherman MD Active BACLOFEN 10 MG ORAL TABLET Take one tablet by mouth three times a day BACLOFEN 32746102902 No Longer Active Tesfaye Sherman MD Active LIDOCAINE 4 % EXTERNAL CREAM Apply to back prn pain LIDOCAINE 61912926706 Active Tesfaye Sherman MD Active TIZANIDINE HCL 2 MG ORAL TABLET 2 Mg in the AM and 6mg q hs 07/05 TIZANIDINE HCL 70212628693 Active Tesfaye Sherman MD Active HYDROXYZINE HCL 25 MG TABS TAKE 1 TABLET BY MOUTH AT B EDTIME NEEDED FOR SLEEP HYDROXYZINE HCL 41623664289 Active JOSHUA Lindsay Active FLUCONAZOLE 100 MG ORAL TABLET 1 by mouth daily for yeast infect ion FLUCONAZOLE 06427747315 No Longer Active Laurence Dominguez Acti ve ZITHROMAX 250 MG ORAL TABLET 2 po today, then 1 po q days 2-5 20 21/08/28 AZITHROMYCIN 70451003582 No Longer Active Tesfaye Sherman MD Active DIFLUCAN 100 MG ORAL TABLET 1 tablet by mouth daily 20 21/08/28 FLUCONAZOLE 28429728832 No Longer Active Tesfaye Sherman MD Acti ve HYDROXYZINE HCL 25 MG ORAL TABLET 1 tab po at HS prn sleep 08/02 HYDROXYZINE HCL 04819005172 No Longer Active Tesfaye Sherman MD Active MIRAPEX 0.5 MG ORAL TABLET 1 tablet at night for restless leg. 2018 PRAMIPEXOLE DIHYDROCHLORIDE 14241776560 Active Laurenceyohana Dominguez Active MIRAPEX 0.25 MG ORAL TABLET 1 tablet by mouth at night for r estless leg PRAMIPEXOLE DIHYDROCHLORIDE 98877573364 No Longer Act trent Laurence Raida Active MIRAPEX 0.125 MG ORAL TABLET 1 po nightly PRAMIPEXOLE DIHYDROCHLORIDE 66159099766 No Longer Active Laurenceyohana Dominguez Active ROPINIROLE HCL 2 MG ORAL TABLET 1 po at hs ROPI NIROLE HCL 58986602237 No Longer Active Laurenceyohana Dominguez Active ROPINIROLE HCL 1 MG ORAL TABLET 1 tab po q hs ROPINIROLE HCL 33199135531 No Longer Active Laurence Dominguez Active ROPINIROLE HCL 0.5 MG ORAL TABLET 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 ROPINIROLE HCL 53564796627 No Longer Active MARCUS Panchal Active ROPINIROLE HCL 0.25 MG ORAL TABLET 1 TAB PO Q HS 05/31 ROPINIROLE HCL 65860250472 No Longer Active Tesfaye Sherman MD Ac tive PREDNISONE 20 MG ORAL TABLET 1 tab twice daily for 3 d ay, then one daily for three days PREDNISONE 39477193080 No Longer Active Tesfaye Sherman MD Active AMITRIPTYLINE HCL 50 MG ORAL TABLET 1 po q hs for sleep AMITRIPTYLINE HCL 59497986055 No Longer Active Tesfaye Sherman MD Active AMITRIPTYLINE HCL 10 MG ORAL TABLET 1 tablet nightly by mout h for neuropathy AMITRIPTYLINE HCL 12954503455 No Longer Active MARCUS Stapleton Active DIFLUCAN 100 MG ORAL TABLET 1 tablet by mouth daily 20 21/03/11 FLUCONAZOLE 11186564103 No Longer Active Tesfaye Sherman MD Acti ve BACTRIM DS 800-160 MG ORAL TABLET 1 tab by mouth twice daily 201 07/08/06 TRIMETHOPRIM-SULFAMETHOXAZOLE 10362664421 No Longer Active D patricia Sherman MD Active CLARITIN 10 MG ORAL TABLET Take one by mouth daily LORATADINE 90281121011 Active Tesfaye Sherman MD Active SUDAFED 12 HOUR 120 MG ORAL TABLET EXTENDED RELEASE 12 HOUR 1 pill twice daily if needed for congestion PSEUDOEPHEDRINE HCL 007088734 13 No Longer Active Tesfaye Sherman MD Active FENOFIBRATE 145 MG ORAL TABLET 1 by mouth daily FENOFIBRATE 90444649170 Active Laurence Dominguez Active GABAPENTIN 300 MG ORAL CAPSULE 1 po daily GABAP ENTIN 83065086403 No Longer Active Tesfaye Sherman MD Active HYDROCHLOROTHIAZIDE 12.5 MG ORAL CAPSULE 1 pill by mough daily 2 HYDROCHLOROTHIAZIDE 33646515746 No Longer Active León Mariee APRN Active VENLAFAXINE HCL 75 MG ORAL TABLET 1 am 1/2 at noon 201 07/07/09 VENLAFAXINE HCL 15193643030 No Longer Active León Mariee APRN Act trent DIFLUCAN 100 MG ORAL TABLET 1 tablet by mouth daily 20 19/02/09 FLUCONAZOLE 44124824301 No Longer Active León Kodi BALL THREAD MACHINE TENDER Active DIFLUCAN 100 MG ORAL TABLET 1 tablet by mouth daily 20 19/02/09 FLUCONAZOLE 67098204101 No Longer Active León Mariee APRN Active OXYCODONE-ACETAMINOPHEN 5-325 MG ORAL TABLET Take one tablet by mouth every 6 hours 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 Use sparingly OXYCODONE-ACETAMINOPHEN 09485755534 Active Tesfaye villar MD Active CLONAZEPAM 0.5 MG ORAL TABLET Take 1/2 qam, and 1/2 qpm CLONAZEPAM 12463298974 Active Tesfaye Sherman MD Active PRELIEF 340 (65-50) MG (CA-P) ORAL TABLET CALCIUM GLYCEROPHOSPHATE 86214782769 No Longer Active Tesfaye Sherman MD Active SUDAFED 24 HOUR 240 MG ORAL TABLET EXTENDED RELEASE 24 HOUR 1 tab po daily PSEUDOEPHEDRINE HCL 43541404207 No Longer Active Raul yanet Sherman MD Active RED YEAST RICE 600 MG ORAL CAPSULE 1 pill by mouth daily RED YEAST RICE EXTRACT 67527725641 No Longer Active Tesfaye Sherman MD Active REPHRESH PRO-B ORAL CAPSULE 1 tablet daily LACT OBACILLUS 25414892235 No Longer Active Tesfaye Sherman MD Active ABILIFY 2 MG ORAL TABLET 1 by mouth daily. MARIA ELENA PIPRAZOLE 89082806795 Active Tesfaye Sherman MD Active CYMBALTA 60 MG ORAL CAPSULE DELAYED RELEASE PARTICLES 1 cap by mouth daily for pain DULOXETINE HCL 74907270659 Active MARCUS Lindsay Active DIFLUCAN 100 MG ORAL TABLET 1 tablet by mouth daily 20 20/06/06 FLUCONAZOLE 16083200193 No Longer Active Tesfaye Sherman MD Acti ve PREDNISONE 20 MG ORAL TABLET 1 tablet by mouth twice d aily for 3 days, then 1 tablet daily for 3 days PREDNISONE 28237418525 No L onger Active Tesfaye Sherman MD Active BACTRIM DS 800-160 MG ORAL TABLET 1 tab by mouth twice daily 201 06/09/02 TRIMETHOPRIM-SULFAMETHOXAZOLE 65169732216 No Longer Active Fer mastersa Angelica Active DIFLUCAN 100 MG ORAL TABLET 1 tablet by mouth daily 20 20/05/01 FLUCONAZOLE 69809552172 No Longer Active Tesfaye Sherman MD Acti ve ZITHROMAX 250 MG ORAL TABLET 2 po today, then 1 po q days 2-5 20 20/04/28 AZITHROMYCIN 09145054825 No Longer Active Tesfaye Sherman MD Active MECLIZINE HCL 25 MG ORAL TABLET one tab po qday prn dizziness 20 17/09/06 MECLIZINE HCL 18211018431 No Longer Active Tesfaye Sherman MD Active PROAIR HFA 108 (90 BASE) MCG/ACT INHALATION AEROSOL SO LUTION 1 puff every 6 hours as needed ALBUTEROL SULFATE 29619164016 No Long er Active Tesfaye Sherman MD Active PREDNISONE 20 MG ORAL TABLET 1 tab twice daily for 3 d ay, then one daily for three days PREDNISONE 18663723885 No Longer Active Tesfaye Sherman MD Active MECLIZINE HCL 25 MG ORAL TABLET one 4 times a day as needed for dizziness MECLIZINE HCL 54127727765 Active Tesfaye Sherman MD Active AMOXICILLIN 500 MG ORAL CAPSULE 1 cap by mouth three times a day AMOXICILLIN 30927333474 No Longer Active Laurence Angelica Acti ve DIFLUCAN 100 MG ORAL TABLET 1 tablet by mouth daily 20 19/08/26 FLUCONAZOLE 28750536343 No Longer Active Tesfaye Sherman MD Acti ve BACTRIM DS 800-160 MG ORAL TABLET 1 tab by mouth twice daily 201 05/10/28 TRIMETHOPRIM-SULFAMETHOXAZOLE 28085835811 No Longer Active A mirna Dominguez Active FOSAMAX 70 MG ORAL TABLET 1 po qweek. Take 30min prio r to first food/drink. Avoid lying down x 1 hour. ALENDRONATE SODIUM 66078083 144 No Longer Active Laurence Dominguez Active CYMBALTA 60 MG ORAL CAPSULE DELAYED RELEASE PARTICLES Take 1 tablet by mouth daily DULOXETINE HCL 22019386494 No Longer Active Edith Burch MD Active CYMBALTA 30 MG ORAL CAPSULE DELAYED RELEASE PARTICLES 1 cap by mouth daily with 60mg DULOXETINE HCL 20884816970 No Longer Active Jordan Burch MD Active DIFLUCAN 100 MG ORAL TABLET 1 tablet by mouth daily 19/03/05 FLUCONAZOLE 16526943656 No Longer Active Tesfaye Sherman MD Acti ve BACTRIM DS 800-160 MG ORAL TABLET 1 tab by mouth twice daily 201 05/06/28 TRIMETHOPRIM-SULFAMETHOXAZOLE 89476080225 No Longer Active Yanet Sherman MD Active BACTRIM DS 800-160 MG ORAL TABLET 1 tab by mouth twice daily 201 05/04/15 TRIMETHOPRIM-SULFAMETHOXAZOLE 75937064246 No Longer Active Yanet Sherman MD Active DIFLUCAN 150 MG ORAL TABLET 1 tablet by mouth daily 20 18/09/20 FLUCONAZOLE 26158364302 No Longer Active Tesfaye Sherman MD Acti ve BACTRIM DS 800-160 MG ORAL TABLET 1 tab by mouth twice daily 201 04/13/17 TRIMETHOPRIM-SULFAMETHOXAZOLE 35517381489 No Longer Active Yanet Sherman MD Active CEFTIN 250 MG ORAL TABLET 1 tablet twice daily x 7 days CEFUROXIME AXETIL 62671178578 No Longer Active Tesfaye Sherman MD Active DIFLUCAN 100 MG ORAL TABLET 1 tablet by mouth every other da y for 2 doses FLUCONAZOLE 71104265991 No Longer Active Tesfaye barron MD Active DIFLUCAN 100 MG ORAL TABLET 1 tablet by mouth daily X 3 DAYS 201 04/09/01 FLUCONAZOLE 81552107883 No Longer Active Rj Moss DO Ac tive MIRTAZAPINE 15 MG ORAL TABLET 1/2 tab by mouth at bedtime. 03/13 MIRTAZAPINE 12138825641 No Longer Active Tesfaye Sherman MD Active BACTRIM DS 800-160 MG ORAL TABLET 1 tab by mouth twice daily 201 04/09/01 TRIMETHOPRIM-SULFAMETHOXAZOLE 31453123411 No Longer Active Yanet Sherman MD Active PRAMIPEXOLE DIHYDROCHLORIDE 0.125 MG ORAL TABLET take 1 tablet po qhs for restless leg syndrome. PRAMIPEXOLE DIHYDROCHLORI DE 79451362001 No Longer Active Tesfaye Sherman MD Active MAGNESIUM 400 MG ORAL TABLET 1 tab po daily MAGNE SIUM 28964934682 Active Chelsea Cardenas APRN Active CETIRIZINE HCL 5 MG ORAL TABLET Take 1 tablet by mouth daily CETIRIZINE HCL 47933960556 No Longer Active Chelsea Cardenas APRN Activ e TRIMETHOPRIM 100 MG ORAL TABLET 1/2 qd TRIM ETHOPRIM 70872669989 No Longer Active Chelsea Cardenas APRN Active BACTRIM DS 800-160 MG ORAL TABLET 1 tab by mouth twice daily 201 04/04/11 TRIMETHOPRIM-SULFAMETHOXAZOLE 40005196861 No Longer Active Yanet Sherman MD Active BACTRIM DS 800-160 MG ORAL TABLET 1 tab by mouth twice daily X 10 DAYS TRIMETHOPRIM-SULFAMETHOXAZOLE 10228992786 No Longer Active Tesfaye Sherman MD Active AMOXICILLIN 500 MG ORAL CAPSULE 1 cap by mouth three times a day AMOXICILLIN 55354368141 No Longer Active Adriana Arredondo, MARCUS A ctive B-12 1000 MCG ORAL LOZENGE 1 tab po daily CYANO COBALAMIN 67129542122 Active Tesfaye Sherman MD Active VITAMIN D3 2000 UNIT ORAL TABLET 1 daily, for vitamin D deficien cy CHOLECALCIFEROL 52191202561 No Longer Active Tesfaye Sherman MD Active ZITHROMAX 250 MG ORAL TABLET 2 po today, then 1 po q days 2-5 20 15/02/10 AZITHROMYCIN 55585455377 No Longer Active Tesfaye Sherman MD Active BACTRIM DS 800-160 MG ORAL TABLET 1 tab by mouth twice daily 201 03/03/23 TRIMETHOPRIM-SULFAMETHOXAZOLE 47566533705 No Longer Active Yanet Sherman MD Active DIFLUCAN 150 MG ORAL TABLET 1 qd FLUCONAZOL E 79646039104 No Longer Active Kayla Cooper MD Active FLUTICASONE PROPIONATE 50 MCG/ACT NASAL SUSPENSION 1 spray each nostril twice daily FLUTICASONE PROPIONATE 34579438711 Active Yanet Sherman MD Active LOVASTATIN 20 MG ORAL TABLET Take 1 tablet by mouth daily LOVASTATIN 92302089936 No Longer Active Tesfaye Sherman MD Acti ve MELOXICAM 7.5 MG ORAL TABLET 1 tablet by mouth daily 2 MELOXICAM 32707160585 No Longer Active Tesfaye Sherman MD Acti ve GABAPENTIN 300 MG ORAL CAPSULE Take two tablets by mouth every e vening GABAPENTIN 55545092101 No Longer Active Edith Burch MD A ctive GABAPENTIN 300 MG ORAL CAPSULE Take two tablets by mouth every e vening GABAPENTIN 300 MG ORAL CAPSULE 002069 GABAPENTIN I nactive MELOXICAM 7.5 MG ORAL TABLET 1 tablet by mouth daily 2 MELOXICAM 7.5 MG ORAL TABLET 035622 MELOXICAM Inactive LOVASTATIN 20 MG ORAL TABLET Take 1 tablet by mouth daily LOVASTATIN 20 MG ORAL TABLET 204175 LOVASTATIN Inactive DIFLUCAN 150 MG ORAL TABLET 1 qd DIFLUCAN 150 MG ORAL TABLET 641686 FLUCONAZOLE Inactive VITAMIN D3 2000 UNIT ORAL TABLET 1 daily, for vitamin D deficien cy VITAMIN D3 2000 UNIT ORAL TABLET CHOLECALCIFEROL Inactive AMOXICILLIN 500 MG ORAL CAPSULE 1 cap by mouth three times a day AMOXICILLIN 500 MG ORAL CAPSULE 669912 AMOXICILLIN Inactive BACTRIM DS 800-160 MG ORAL TABLET 1 tab by mouth twice daily X 10 DAYS BACTRIM DS 800-160 MG ORAL TABLET 138951 TRIMETHOPRIM-SULFAMETHOXAZOLE Inactive TRIMETHOPRIM 100 MG ORAL TABLET 1/2 qd 7 TRIMETHOPRIM 100 MG ORAL TABLET 877912 TRIMETHOPRIM Inactive CETIRIZINE HCL 5 MG ORAL TABLET Take 1 tablet by mouth daily CETIRIZINE HCL 5 MG ORAL TABLET 9796232 CETIRIZINE HCL Inactive PRAMIPEXOLE DIHYDROCHLORIDE 0.125 MG ORAL TABLET take 1 tablet po qhs for restless leg syndrome. PRAMIPEXOLE DIHYD ROCHLORIDE 0.125 MG ORAL TABLET 145563 PRAMIPEXOLE DIHYDROCHLORIDE Inactive MIRTAZAPINE 15 MG ORAL TABLET 1/2 tab by mouth at bedtime. 03/13 MIRTAZAPINE 15 MG ORAL TABLET 699551 MIRTAZAPINE In active DIFLUCAN 100 MG ORAL TABLET 1 tablet by mouth daily X 3 DAYS 201 04/09/01 DIFLUCAN 100 MG ORAL TABLET 186177 FLUCONAZOLE Inac tive DIFLUCAN 100 MG ORAL TABLET 1 tablet by mouth every other da y for 2 doses DIFLUCAN 100 MG ORAL TABLET 810089 FLUCONAZOLE Inactive CEFTIN 250 MG ORAL TABLET 1 tablet twice daily x 7 days CEFTIN 250 MG ORAL TABLET CEFUROXIME AXETIL Inactive CYMBALTA 30 MG ORAL CAPSULE DELAYED RELEASE PARTICLES 1 cap by mouth daily with 60mg CYMBALTA 30 MG ORAL CAPSULE DELAYED RELEASE PARTICLES 020097 DULOXETINE HCL Inactive CYMBALTA 60 MG ORAL CAPSULE DELAYED RELEASE PARTICLES Take 1 tablet by mouth daily CYMBALTA 60 MG ORAL CAPSULE DELAYED RELEA SE PARTICLES 783158 DULOXETINE HCL Inactive FOSAMAX 70 MG ORAL TABLET 1 po qweek. Take 30min prio r to first food/drink. Avoid lying down x 1 hour. FOSAMAX 70 MG ORAL TA BLET 411126 ALENDRONATE SODIUM Inactive DIFLUCAN 100 MG ORAL TABLET 1 tablet by mouth daily 20 19/08/26 DIFLUCAN 100 MG ORAL TABLET 19760711 FLUCONAZOLE Inactive PREDNISONE 20 MG ORAL TABLET 1 tab twice daily for 3 d ay, then one daily for three days PREDNISONE 20 MG ORAL TABLET 747324 PREDNIS ONE Inactive PROAIR HFA 108 (90 BASE) MCG/ACT INHALATION AEROSOL SO LUTION 1 puff every 6 hours as needed PROAIR HFA 108 (90 B ASE) MCG/ACT INHALATION AEROSOL SOLUTION ALBUTEROL SULFATE Inactive MECLIZINE HCL 25 MG ORAL TABLET one tab po qday prn dizziness 20 17/09/06 MECLIZINE HCL 25 MG ORAL TABLET 547553 MECLIZINE HCL Inactive PREDNISONE 20 MG ORAL TABLET 1 tablet by mouth twice d aily for 3 days, then 1 tablet daily for 3 days PREDNISONE 20 MG ORAL TA BLET 044467 PREDNISONE Inactive DIFLUCAN 100 MG ORAL TABLET 1 tablet by mouth daily 20 20/06/06 DIFLUCAN 100 MG ORAL TABLET 19760711 FLUCONAZOLE Inactive REPHRESH PRO-B ORAL CAPSULE 1 tablet daily REPHRESH PRO-B ORAL CAPSULE LACTOBACILLUS Inactive RED YEAST RICE 600 MG ORAL CAPSULE 1 pill by mouth daily RED YEAST RICE 600 MG ORAL CAPSULE 593403 RED YEAST RICE EXTRACT In active SUDAFED [...] 20 19/02/09 DIFLUCAN 100 MG ORAL TABLET 414594 FLUCONAZOLE Inactive VENLAFAXINE HCL 75 MG ORAL TABLET 1 am 1/2 at noon 201 07/07/09 VENLAFAXINE HCL 75 MG ORAL TABLET 727702 VENLAFAXINE HCL Inacti ve GABAPENTIN 300 MG ORAL CAPSULE 1 po daily GABAPENTIN 300 MG ORAL CAPSULE 633411 GABAPENTIN Inactive SUDAFED 12 HOUR 120 MG ORAL TABLET EXTENDED RELEASE 12 HOUR 1 pill twice daily if needed for congestion SUDAFED 12 HOUR 120 MG ORAL TABLET EXTENDED RELEASE 12 HOUR PSEUDOEPHEDRINE HCL Inactive AMITRIPTYLINE HCL 10 MG ORAL TABLET 1 tablet nightly by mout h for neuropathy AMITRIPTYLINE HCL 10 MG ORAL TABLET 499069 AMITRIPTYLINE HCL Inactive AMITRIPTYLINE HCL 50 MG ORAL TABLET 1 po q hs for sleep AMITRIPTYLINE HCL 50 MG ORAL TABLET 794120 AMITRIPTYLINE HCL Inac tive PREDNISONE 20 MG ORAL TABLET 1 tab twice daily for 3 d ay, then one daily for three days PREDNISONE 20 MG ORAL TABLET 754983 PREDNIS ONE Inactive ROPINIROLE HCL 0.25 MG ORAL TABLET 1 TAB PO Q HS 05/31 ROPINIROLE HCL 0.25 MG ORAL TABLET 196476 ROPINIROLE HCL Inact trent ROPINIROLE HCL 0.5 MG ORAL TABLET 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 ROPINIROLE HCL 0.5 MG ORAL TABLET 634602 ROPINIR OLE HCL Inactive ROPINIROLE HCL 1 MG ORAL TABLET 1 tab po q hs ROPINIROLE HCL 1 MG ORAL TABLET 536277 ROPINIROLE HCL Inactive ROPINIROLE HCL 2 MG ORAL TABLET 1 po at hs 7 ROPINIROLE HCL 2 MG ORAL TABLET 438728 ROPINIROLE HCL Inactive MIRAPEX 0.125 MG ORAL TABLET 1 po nightly MIRAPEX 0.125 MG ORAL TABLET 990686 PRAMIPEXOLE DIHYDROCHLORIDE Inactive MIRAPEX 0.25 MG ORAL TABLET 1 tablet by mouth at night for r estless leg MIRAPEX 0.25 MG ORAL TABLET 267678 PRAM IPEXOLE DIHYDROCHLORIDE Inactive HYDROXYZINE HCL 25 MG ORAL TABLET 1 tab po at HS prn sleep 08/02 HYDROXYZINE HCL 25 MG ORAL TABLET 406135 HYDROXYZINE HC L Inactive DIFLUCAN 100 MG ORAL TABLET 1 tablet by mouth daily 20 21/08/28 DIFLUCAN 100 MG ORAL TABLET 517206 FLUCONAZOLE Inactive BACLOFEN 10 MG ORAL TABLET Take one tablet by mouth three times a day BACLOFEN 10 MG ORAL TABLET 313162 BACLOFEN Inact trent PREDNISONE 20 MG ORAL TABLET 1 tab twice daily for 3 d ay, then one daily for three days PREDNISONE 20 MG ORAL TABLET 949297 PREDNIS ONE Inactive UNISOM SLEEPMELTS 25 MG [...] 03/03/23 BACTRIM DS 800-160 MG ORAL TABLET 728312 TRIMETHOPRIM-SULFAMETHOXAZOLE Inactive ZITHROMAX 250 MG ORAL TABLET 2 po today, then 1 po q days 2-5 20 15/02/10 ZITHROMAX 250 MG ORAL TABLET 916456 AZITHROMYCIN Mayela ctive BACTRIM DS 800-160 MG ORAL TABLET 1 tab by mouth twice daily 201 04/04/11 BACTRIM DS 800-160 MG ORAL TABLET 315398 TRIMETHOPRIM-SULFAMETHOXAZOLE Inactive BACTRIM DS 800-160 MG ORAL [...] a day AMOXICILLIN 500 MG ORAL CAPSULE 410450 AMOXICILLIN Inactive ZITHROMAX 250 MG ORAL TABLET 2 po today, then 1 po q days 2-5 20 20/04/28 ZITHROMAX 250 MG ORAL TABLET 380851 AZITHROMYCIN [place] ctive DIFLUCAN 100 MG ORAL TABLET 1 tablet by mouth daily 20 20/05/01 DIFLUCAN 100 MG ORAL TABLET 19760711 FLUCONAZOLE Inactive BACTRIM DS 800-160 MG ORAL TABLET 1 tab by mouth twice daily 201 06/09/02 BACTRIM DS 800-160 MG ORAL TABLET 19830105 TRIMETHOPRIM-SULFAMETHOXAZOLE Inactive HYDROCHLOROTHIAZIDE 12.5 MG ORAL CAPSULE 1 pill by mough daily 2 HYDROCHLOROTHIAZIDE 12.5 MG ORAL CAPSULE [facility] LOROTHIAZIDE Inactive BACTRIM DS 800-160 MG ORAL TABLET 1 tab by mouth twice daily 201 9/05/06 BACTRIM DS 800-160 MG ORAL TABLET 547955 TRIMETHOPRIM-SULFAMETHOXAZOLE Inactive DIFLUCAN 100 MG ORAL TABLET 1 tablet by mouth daily 21/03/11 DIFLUCAN 100 MG ORAL TABLET 19760711 FLUCONAZOLE Inactive ZITHROMAX 250 MG ORAL TABLET 2 po today, then 1 po q days 2-5 20 21/08/28 ZITHROMAX 250 MG ORAL TABLET 928301 AZITHROMYCIN Mayela ctive FLUCONAZOLE 100 MG ORAL [...] LIVING WILL ON FILE DURABLE POWER OF POOL NURSE FOR HEALTHCARE Vital Signs Date Name Value [...] Magnesium - Chemistry cholesterol, serum 196 mg/dL 127-486 5432/07/30 triglyceride, serum, fasting 86 mg/dL 30-200 HDL cholesterol, serum 41 mg/dL 32-60 LDL cholesterol, serum 138 mg/dL 0-130 sodium, serum 140 mmol/L 465-294 7623/07/30 carbon dioxide, venous blood 28.6 mmol/L 21.0-32 [...] 5.0-8.5 Encounters Code Encounter Date Provider Facility CPT-[id number] Vst-Est Level IV 10:36:10 C BRIDGET Sherman MD [facility]-79803 [id number] Vst-Est Level IV 13:49:08 CD MANUFACTURING SUPERVISOR [facility] [id number] Vst-Est Level IV 11:39:[address] Tesfaye Sherman MD [facility]-91161 [id number] Vst-Est Level IV 14:08:03 C BRIDGET Sherman MD [facility]-09956 Level 3 Est. Patient 18:06:36 CDT Tesfaye pearson MD [facility]-89141 [id number] Vst-Est Level IV 17:09:34 C BRIDGET Sherman MD [facility]-52223 Level 3 Est. Patient 17:27:08 CDT León hernandez BALL THREAD MACHINE TENDER [facility]-36276 [id number] Vst-Est Level IV 14:00:[address] Tesfaye Sherman MD [facility]-35572 [id number] Vst-Est Level IV 19:27:[address] Tesfaye Sherman MD [facility]-61734 12880-Qvn Vst-Est Level IV 10:41:41 C DT Tesfaye Sherman MD [facility]-30084 45013-Zjz Vst-Est Level III 09:40:56 CDT Tesfaye Sherman MD [facility]-75242 Level 4 Est. Patient 22:18:12 CDT Tesfaye pearson MD [facility]-31055 Level 4 Est. Patient 14:44:33 CD MANUFACTURING SUPERVISOR Tesfaye pearson MD [facility]-89055 Level 4 Est. Patient 13:55:29 CD MANUFACTURING SUPERVISOR Tesfaye pearson MD [facility]-36952 Level 4 Est. Patient 17:07:34 CD MANUFACTURING SUPERVISOR Tesfaye pearson MD [facility]-18980 Level 4 Est. Patient 13:56:54 CDT Tesfaye pearson MD [facility]-49384 Level 4 Est. Patient 13:24:25 CDT Chelsea sanz APRN [facility] CPT-99043 Level 4 Est. Patient 09:14:56 CDT Tesfaye pearson MD [facility]-83706 Level 4 Est. Patient 18:40:25 CD MANUFACTURING SUPERVISOR Tesfaye pearson MD [facility]-19111 Level 4 Est. Patient 18:13:07 CD MANUFACTURING SUPERVISOR Tesfaye pearson MD [facility]-82277 Level 3 Est. Patient 10:46:32 CDT Rj cotto DO [facility] CPT-63122 Level 4 Est. Patient 20:19:25 CDT Tesfaye pearson MD [facility]-91061 Level 3 Est. Patient 09:07:31 CDT Tesfaye pearson MD [facility]-94160 Level 4 Est. Patient 13:12:56 CDT Tesfaye pearson MD [facility]-66721 Level 4 Est. Patient 21:24:55 CD MANUFACTURING SUPERVISOR Tesfaye pearson MD [facility] CPT-68311 Level 3 Est. Patient 13:45:04 CD MANUFACTURING SUPERVISOR Tesfaye pearson MD [facility] CPT-63979 Level 4 Est. Patient 13:50:45 CDT Tesfaye pearson MD [facility] CPT-58635 Level 3 Est. Patient 10:16:10 CDT Tesfaye pearson MD [facility] CPT-00100 Level 3 Est. Patient 16:36:07 CD MANUFACTURING SUPERVISOR Kayla jameson MD [facility] CPT-28987 Level 4 Est. Patient 16:00:14 CD MANUFACTURING SUPERVISOR Tesfaye pearson MD [facility]-23657 Level 4 Est. Patient 11:02:24 CD MANUFACTURING SUPERVISOR Tesfaye pearson MD [facility] CPT-25824 Level 3 Est. Patient 20:21:43 CD MANUFACTURING SUPERVISOR Kayla jameson MD [facility] CPT-41381 Level 3 Est. Patient 13:27:28 CD MANUFACTURING SUPERVISOR Kayla jameson MD [facility] CPT-45912 Level 4 Est. Patient 15:57:17 CD MANUFACTURING SUPERVISOR Tesfaye pearson MD [facility] CPT-02365 Level 3 New Patient 13:25:47 CDT Tesfaye kidd MD [facility] CPT-08810 Level 3 New Patient 17:22:21 CDT Kayla angel MD [facility] Procedures Code Procedure Name Date Entry Date Standard Desc ription CPT-48014 Prv Med Est Pt 40-64yrs 09:01:58 CDT 03/09 CPT-G0439 [facility] Annual Wellness Exam 11:25:51 CDT [id number] 2P) Patient Reason Influenza immu nization not administered 13:25:19 CD MANUFACTURING SUPERVISOR CPT-36659 Bone Density - XRAY USE ONLY 15:21:33 CDT 2 CPT-62538 Venipuncture Draw Fee 16:12:22 CDT CPT-G0439 Subsequent Annual Wellness Exam 18:06:36 CDT CPT-G0439 Subsequent Annual Wellness Exam 22:18:11 CDT CPT-75021 Bone Density - XRAY USE ONLY 11:43:58 CDT 2 CPT-01636 Bone Density - XRAY USE ONLY 10:05:16 CDT 2 CPT-24227 Prv Med New Pt 40-64 yrs 18:19:25 CDT 2016 CPT-03399 Foot, right, comp min 3V - XRAY USE ONLY 10:38:34 CDT CPT-G0439 Subsequent Annual Wellness Exam 13:55:04 CDT CPT-G0438 Initial Annual Wellness Exam 11:23:17 CD T CPT-J2930 Solu Medrol 125 mg (Methyl Prednisolone Sodium Succinate) 17:29:12 CD MANUFACTURING SUPERVISOR CPT-69844 Abx/Therapy Injection 17:29:11 CD MANUFACTURING SUPERVISOR CPT-J2930 Solu Medrol 125 mg (Methyl Prednisolone Sodium Succinate) 12:34:38 CD MANUFACTURING SUPERVISOR CPT-J3420 Vitamin B12 1000mcg (Cyanocobalamin) 09:12:55 CDT CPT-J3420 Vitamin B12 1000mcg (Cyanocobalamin) 16:28:06 CD MANUFACTURING SUPERVISOR CPT-30755 Venipuncture Draw Fee 08:39:53 CDT CPT-J3420 Vitamin B12 1000mcg (Cyanocobalamin) 08:46:22 CDT CPT-74014 Abx/Therapy Injection 08:46:22 CDT CPT-J3420 Vitamin B12 1000mcg (Cyanocobalamin) 08:41:26 CDT CPT-98645 Abx/Therapy Injection 08:41:26 CDT CPT-J3420 Vitamin B12 1000mcg (Cyanocobalamin) 08:57:15 CDT CPT-01021 Abx/Therapy Injection 08:57:15 CDT CPT-J3420 Vitamin B12 1000mcg (Cyanocobalamin) 10:59:03 CDT CPT-82290 Abx/Therapy Injection 10:59:03 CDT CPT-J3420 Vitamin B12 1000mcg (Cyanocobalamin) 15:05:39 CDT CPT-22185 Abx/Therapy Injection 15:05:39 CDT CPT-J3420 Vitamin B12 1000mcg (Cyanocobalamin) 13:50:45 CDT CPT-J3420 Vitamin B12 1000mcg (Cyanocobalamin) 08:48:55 CDT CPT-72457 Abx/Therapy Injection 08:48:55 CDT CPT-J3420 Vitamin B12 1000mcg (Cyanocobalamin) 09:14:54 CDT CPT-99584 Abx/Therapy Injection 09:14:54 CDT CPT-J3420 Vitamin B12 1000mcg (Cyanocobalamin) 09:06:06 CDT CPT-86219 Abx/Therapy Injection 09:06:06 CDT CPT-J3420 Vitamin B12 1000mcg (Cyanocobalamin) 09:49:14 CDT CPT-71233 Abx/Therapy Injection 09:49:14 CDT CPT-J3420 Vitamin B12 1000mcg (Cyanocobalamin) 09:10:30 CD MANUFACTURING SUPERVISOR CPT-07511 Abx/Therapy Injection 09:10:30 CD MANUFACTURING SUPERVISOR CPT-J3420 Vitamin B12 1000mcg (Cyanocobalamin) 09:11:07 CD MANUFACTURING SUPERVISOR CPT-79440 Abx/Therapy Injection 09:11:07 CD MANUFACTURING SUPERVISOR CPT-J3420 Vitamin B12 1000mcg (Cyanocobalamin) 09:57:03 CD MANUFACTURING SUPERVISOR CPT-67301 Abx/Therapy Injection 09:57:03 CD MANUFACTURING SUPERVISOR CPT-J3420 Vitamin B12 1000mcg (Cyanocobalamin) 09:23:21 CD MANUFACTURING SUPERVISOR CPT-36715 Abx/Therapy Injection 09:23:21 CD MANUFACTURING SUPERVISOR CPT-77971 Urine Dip (Floor Use Only) 20:21:44 CD MANUFACTURING SUPERVISOR 201 02/12/11 CPT-26892 UA Dip Auto (Floor Use Only) 10:04:39 CD MANUFACTURING SUPERVISOR 2 CPT-66170 Urine Dip (Floor Use Only) 13:27:28 CD MANUFACTURING SUPERVISOR 201 02/12/01 CPT-05508 Bladder Scan 13:27:28 CD MANUFACTURING SUPERVISOR CPT-91187 Abd single AP View 14:30:51 CD MANUFACTURING SUPERVISOR CPT-OV Office Visit 10:15:43 CDT CPT-06594 Urine Dip (Floor Use Only) 17:22:21 CDT 201 02/09/02 CPT-56640 Bladder Scan 17:22:21 CDT
--- OUTSIDE RECORDS SUMMARY | 2020-05-05 12:03 | XMS REPORT | Clinical Summary ---
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 PRAMIPEXOLE DIHYDROCHLORIDE [id number] Acti ve Tesfaye Sherman MD Active DIFLUCAN 100 MG ORAL TABLET 1 tablet by mouth daily 20 23/12/05 FLUCONAZOLE 96840163519 No Longer Active Tesfaye Sherman MD Acti ve [facility] NIACIN FLUSH FREE 400-100 MG ORAL CAPSULE 1 daily NIACIN-INOSITOL 47295716567 No Longer Active Tesfaye Sherman MD A ctive FISH OIL 1000 MG ORAL CAPSULE DELAYED RELEASE 1 pill b y mouth daily for cholesterol OMEGA-3 FATTY ACIDS 90315848495 No Longe r Active Tesfaye Sherman MD Active UNISOM SLEEPMELTS 25 MG ORAL TABLET DISINTEGRATING 1.5 po q hs DIPHENHYDRAMINE HCL (SLEEP) 81659227863 No Longer Active Venkata Sherman MD Active PREDNISONE 20 MG ORAL TABLET 1 tab twice daily for 3 d ay, then one daily for three days PREDNISONE 20278202215 No Longer Active Tesfaye Sherman MD Active BACLOFEN 10 MG ORAL TABLET Take one tablet by mouth three times a day BACLOFEN 75452713147 No Longer Active Tesfaye Sherman MD Active LIDOCAINE 4 % EXTERNAL CREAM Apply to back prn pain LIDOCAINE 92017059618 Active Tesfaye Sherman MD Active TIZANIDINE HCL 2 MG ORAL TABLET 2 Mg in the AM and 6mg q hs 07/05 TIZANIDINE HCL 46222788920 Active Tesfaye Sherman MD Active HYDROXYZINE HCL 25 MG TABS TAKE 1 TABLET BY MOUTH AT B EDTIME NEEDED FOR SLEEP HYDROXYZINE HCL 06425519637 Active JOSHUA Lindsay Active FLUCONAZOLE 100 MG ORAL TABLET 1 by mouth daily for yeast infect ion FLUCONAZOLE 96097293217 No Longer Active Laurence Dominguez Acti ve ZITHROMAX 250 MG ORAL TABLET 2 po today, then 1 po q days 2-5 20 21/08/28 AZITHROMYCIN 91772147705 No Longer Active Tesfaye Sherman MD Active DIFLUCAN 100 MG ORAL TABLET 1 tablet by mouth daily 20 21/08/28 FLUCONAZOLE 81347474452 No Longer Active Tesfaye Sherman MD Acti ve HYDROXYZINE HCL 25 MG ORAL TABLET 1 tab po at HS prn sleep 08/02 HYDROXYZINE HCL 05078166878 No Longer Active Tesfaye Sherman MD Active MIRAPEX 0.5 MG ORAL TABLET 1 tablet at night for restless leg. 2018 PRAMIPEXOLE DIHYDROCHLORIDE 84106287034 Active Laurenceyohana Dominguez Active MIRAPEX 0.25 MG ORAL TABLET 1 tablet by mouth at night for r estless leg PRAMIPEXOLE DIHYDROCHLORIDE 48639904901 No Longer Act trent Laurence Raida Active MIRAPEX 0.125 MG ORAL TABLET 1 po nightly PRAMIPEXOLE DIHYDROCHLORIDE 62175144494 No Longer Active Laurenceyohana Dominguez Active ROPINIROLE HCL 2 MG ORAL TABLET 1 po at hs ROPI NIROLE HCL 26928008140 No Longer Active Laurenceyohana Dominguez Active ROPINIROLE HCL 1 MG ORAL TABLET 1 tab po q hs ROPINIROLE HCL 06747301105 No Longer Active Laurence Dominguez Active ROPINIROLE HCL 0.5 MG ORAL TABLET 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 ROPINIROLE HCL 97508263167 No Longer Active MARCUS Panchal Active ROPINIROLE HCL 0.25 MG ORAL TABLET 1 TAB PO Q HS 05/31 ROPINIROLE HCL 18727023036 No Longer Active Tesfaye Sherman MD Ac tive PREDNISONE 20 MG ORAL TABLET 1 tab twice daily for 3 d ay, then one daily for three days PREDNISONE 81513116958 No Longer Active Tesfaye Sherman MD Active AMITRIPTYLINE HCL 50 MG ORAL TABLET 1 po q hs for sleep AMITRIPTYLINE HCL 04650094864 No Longer Active Tesfaye Sherman MD Active AMITRIPTYLINE HCL 10 MG ORAL TABLET 1 tablet nightly by mout h for neuropathy AMITRIPTYLINE HCL 06092729621 No Longer Active MARCUS Stapleton Active DIFLUCAN 100 MG ORAL TABLET 1 tablet by mouth daily 20 21/03/11 FLUCONAZOLE 21447203099 No Longer Active Tesfaye Sherman MD Acti ve BACTRIM DS 800-160 MG ORAL TABLET 1 tab by mouth twice daily 201 07/08/06 TRIMETHOPRIM-SULFAMETHOXAZOLE 42840877927 No Longer Active D patricia Sherman MD Active CLARITIN 10 MG ORAL TABLET Take one by mouth daily LORATADINE 14384221559 Active Tesfaye Sherman MD Active SUDAFED 12 HOUR 120 MG ORAL TABLET EXTENDED RELEASE 12 HOUR 1 pill twice daily if needed for congestion PSEUDOEPHEDRINE HCL 387786384 13 No Longer Active Tesfaye Sherman MD Active FENOFIBRATE 145 MG ORAL TABLET 1 by mouth daily FENOFIBRATE 13783102412 Active Laurence Dominguez Active GABAPENTIN 300 MG ORAL CAPSULE 1 po daily GABAP ENTIN 89690170616 No Longer Active Tesfaye Sherman MD Active HYDROCHLOROTHIAZIDE 12.5 MG ORAL CAPSULE 1 pill by mough daily 2 HYDROCHLOROTHIAZIDE 60148246494 No Longer Active León Mariee APRN Active VENLAFAXINE HCL 75 MG ORAL TABLET 1 am 1/2 at noon 201 07/07/09 VENLAFAXINE HCL 27008286554 No Longer Active León Mariee APRN Act trent DIFLUCAN 100 MG ORAL TABLET 1 tablet by mouth daily 20 19/02/09 FLUCONAZOLE 59725078281 No Longer Active León Kodi CARTON REPAIRER Active DIFLUCAN 100 MG ORAL TABLET 1 tablet by mouth daily 20 19/02/09 FLUCONAZOLE 72923552358 No Longer Active León Mariee APRN Active OXYCODONE-ACETAMINOPHEN 5-325 MG ORAL TABLET Take one tablet by mouth every 6 hours 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 Use sparingly OXYCODONE-ACETAMINOPHEN 58147957042 Active Tesfaye villar MD Active CLONAZEPAM 0.5 MG ORAL TABLET Take 1/2 qam, and 1/2 qpm CLONAZEPAM 70342368110 Active Tesfaye Sherman MD Active PRELIEF 340 (65-50) MG (CA-P) ORAL TABLET CALCIUM GLYCEROPHOSPHATE 94909050668 No Longer Active Tesfaye Sherman MD Active SUDAFED 24 HOUR 240 MG ORAL TABLET EXTENDED RELEASE 24 HOUR 1 tab po daily PSEUDOEPHEDRINE HCL 89834421323 No Longer Active Raul yanet Sherman MD Active RED YEAST RICE 600 MG ORAL CAPSULE 1 pill by mouth daily RED YEAST RICE EXTRACT 72350255584 No Longer Active Tesfaye Sherman MD Active REPHRESH PRO-B ORAL CAPSULE 1 tablet daily LACT OBACILLUS 21276435534 No Longer Active Tesfaye Sherman MD Active ABILIFY 2 MG ORAL TABLET 1 by mouth daily. MARIA ELENA PIPRAZOLE 33066921530 Active Tesfaye Sherman MD Active CYMBALTA 60 MG ORAL CAPSULE DELAYED RELEASE PARTICLES 1 cap by mouth daily for pain DULOXETINE HCL 99190092929 Active MARCUS Lindsay Active DIFLUCAN 100 MG ORAL TABLET 1 tablet by mouth daily 20 20/06/06 FLUCONAZOLE 91017463630 No Longer Active Tesfaye Sherman MD Acti ve PREDNISONE 20 MG ORAL TABLET 1 tablet by mouth twice d aily for 3 days, then 1 tablet daily for 3 days PREDNISONE 36371795994 No L onger Active Tesfaye Sherman MD Active BACTRIM DS 800-160 MG ORAL TABLET 1 tab by mouth twice daily 201 06/09/02 TRIMETHOPRIM-SULFAMETHOXAZOLE 88413196936 No Longer Active Fer mastersa Angelica Active DIFLUCAN 100 MG ORAL TABLET 1 tablet by mouth daily 20 20/05/01 FLUCONAZOLE 69612470749 No Longer Active Tesfaye Sherman MD Acti ve ZITHROMAX 250 MG ORAL TABLET 2 po today, then 1 po q days 2-5 20 20/04/28 AZITHROMYCIN 92663018883 No Longer Active Tesfaye Sherman MD Active MECLIZINE HCL 25 MG ORAL TABLET one tab po qday prn dizziness 20 17/09/06 MECLIZINE HCL 45251221369 No Longer Active Tesfaye Sherman MD Active PROAIR HFA 108 (90 BASE) MCG/ACT INHALATION AEROSOL SO LUTION 1 puff every 6 hours as needed ALBUTEROL SULFATE 49224231587 No Long er Active Tesfaye Sherman MD Active PREDNISONE 20 MG ORAL TABLET 1 tab twice daily for 3 d ay, then one daily for three days PREDNISONE 01609452243 No Longer Active Tesfaye Sherman MD Active MECLIZINE HCL 25 MG ORAL TABLET one 4 times a day as needed for dizziness MECLIZINE HCL 95032300936 Active Tesfaye Sherman MD Active AMOXICILLIN 500 MG ORAL CAPSULE 1 cap by mouth three times a day AMOXICILLIN 41315167116 No Longer Active Laurence Angelica Acti ve DIFLUCAN 100 MG ORAL TABLET 1 tablet by mouth daily 20 19/08/26 FLUCONAZOLE 87008190199 No Longer Active Tesfaye Sherman MD Acti ve BACTRIM DS 800-160 MG ORAL TABLET 1 tab by mouth twice daily 201 05/10/28 TRIMETHOPRIM-SULFAMETHOXAZOLE 92295331000 No Longer Active A mirna Dominguez Active FOSAMAX 70 MG ORAL TABLET 1 po qweek. Take 30min prio r to first food/drink. Avoid lying down x 1 hour. ALENDRONATE SODIUM 12563957 144 No Longer Active Laurence Dominguez Active CYMBALTA 60 MG ORAL CAPSULE DELAYED RELEASE PARTICLES Take 1 tablet by mouth daily DULOXETINE HCL 80924563086 No Longer Active Edith Burch MD Active CYMBALTA 30 MG ORAL CAPSULE DELAYED RELEASE PARTICLES 1 cap by mouth daily with 60mg DULOXETINE HCL 08647010482 No Longer Active Jordan Burch MD Active DIFLUCAN 100 MG ORAL TABLET 1 tablet by mouth daily 19/03/05 FLUCONAZOLE 27869500570 No Longer Active Tesfaye Sherman MD Acti ve BACTRIM DS 800-160 MG ORAL TABLET 1 tab by mouth twice daily 201 05/06/28 TRIMETHOPRIM-SULFAMETHOXAZOLE 02390234274 No Longer Active Yanet Sherman MD Active BACTRIM DS 800-160 MG ORAL TABLET 1 tab by mouth twice daily 201 05/04/15 TRIMETHOPRIM-SULFAMETHOXAZOLE 88493059054 No Longer Active Yanet Sherman MD Active DIFLUCAN 150 MG ORAL TABLET 1 tablet by mouth daily 20 18/09/20 FLUCONAZOLE 37896421748 No Longer Active Tesfaye Sherman MD Acti ve BACTRIM DS 800-160 MG ORAL TABLET 1 tab by mouth twice daily 201 04/13/17 TRIMETHOPRIM-SULFAMETHOXAZOLE 08463515165 No Longer Active Yanet Sherman MD Active CEFTIN 250 MG ORAL TABLET 1 tablet twice daily x 7 days CEFUROXIME AXETIL 12447788081 No Longer Active Tesfaye Sherman MD Active DIFLUCAN 100 MG ORAL TABLET 1 tablet by mouth every other da y for 2 doses FLUCONAZOLE 06683179428 No Longer Active Tesfaye barron MD Active DIFLUCAN 100 MG ORAL TABLET 1 tablet by mouth daily X 3 DAYS 201 04/09/01 FLUCONAZOLE 39596393022 No Longer Active Rj Moss DO Ac tive MIRTAZAPINE 15 MG ORAL TABLET 1/2 tab by mouth at bedtime. 03/13 MIRTAZAPINE 36446755401 No Longer Active Tesfaye Sherman MD Active BACTRIM DS 800-160 MG ORAL TABLET 1 tab by mouth twice daily 201 04/09/01 TRIMETHOPRIM-SULFAMETHOXAZOLE 96834181053 No Longer Active Yanet Sherman MD Active PRAMIPEXOLE DIHYDROCHLORIDE 0.125 MG ORAL TABLET take 1 tablet po qhs for restless leg syndrome. PRAMIPEXOLE DIHYDROCHLORI DE 98584649115 No Longer Active Tesfaye Sherman MD Active MAGNESIUM 400 MG ORAL TABLET 1 tab po daily MAGNE SIUM 34162910234 Active Chelsea Cardenas APRN Active CETIRIZINE HCL 5 MG ORAL TABLET Take 1 tablet by mouth daily CETIRIZINE HCL 16041660262 No Longer Active Chelsea Cardenas APRN Activ e TRIMETHOPRIM 100 MG ORAL TABLET 1/2 qd TRIM ETHOPRIM 48970507915 No Longer Active Chelsea Cardenas APRN Active BACTRIM DS 800-160 MG ORAL TABLET 1 tab by mouth twice daily 201 04/04/11 TRIMETHOPRIM-SULFAMETHOXAZOLE 01938721454 No Longer Active Yanet Sherman MD Active BACTRIM DS 800-160 MG ORAL TABLET 1 tab by mouth twice daily X 10 DAYS TRIMETHOPRIM-SULFAMETHOXAZOLE 88949894055 No Longer Active Tesfaye Sherman MD Active AMOXICILLIN 500 MG ORAL CAPSULE 1 cap by mouth three times a day AMOXICILLIN 25291799249 No Longer Active Adriana Arredondo, MARCUS A ctive B-12 1000 MCG ORAL LOZENGE 1 tab po daily CYANO COBALAMIN 44033395387 Active Tesfaye Sherman MD Active VITAMIN D3 2000 UNIT ORAL TABLET 1 daily, for vitamin D deficien cy CHOLECALCIFEROL 26109482582 No Longer Active Tesfaye Sherman MD Active ZITHROMAX 250 MG ORAL TABLET 2 po today, then 1 po q days 2-5 20 15/02/10 AZITHROMYCIN 78254343901 No Longer Active Tesfaye Sherman MD Active BACTRIM DS 800-160 MG ORAL TABLET 1 tab by mouth twice daily 201 03/03/23 TRIMETHOPRIM-SULFAMETHOXAZOLE 98408307299 No Longer Active Yanet Sherman MD Active DIFLUCAN 150 MG ORAL TABLET 1 qd FLUCONAZOL E 92360861072 No Longer Active Kayla Cooper MD Active FLUTICASONE PROPIONATE 50 MCG/ACT NASAL SUSPENSION 1 spray each nostril twice daily FLUTICASONE PROPIONATE 36206591691 Active Yanet Sherman MD Active LOVASTATIN 20 MG ORAL TABLET Take 1 tablet by mouth daily LOVASTATIN 43775938790 No Longer Active Tesfaye Sherman MD Acti ve MELOXICAM 7.5 MG ORAL TABLET 1 tablet by mouth daily 2 MELOXICAM 38247544028 No Longer Active Tesfaye Sherman MD Acti ve GABAPENTIN 300 MG ORAL CAPSULE Take two tablets by mouth every e vening GABAPENTIN 70033484245 No Longer Active Edith Burch MD A ctive GABAPENTIN 300 MG ORAL CAPSULE Take two tablets by mouth every e vening GABAPENTIN 300 MG ORAL CAPSULE 963333 GABAPENTIN I nactive MELOXICAM 7.5 MG ORAL TABLET 1 tablet by mouth daily 2 MELOXICAM 7.5 MG ORAL TABLET 341052 MELOXICAM Inactive LOVASTATIN 20 MG ORAL TABLET Take 1 tablet by mouth daily LOVASTATIN 20 MG ORAL TABLET 193081 LOVASTATIN Inactive DIFLUCAN 150 MG ORAL TABLET 1 qd DIFLUCAN 150 MG ORAL TABLET 367087 FLUCONAZOLE Inactive VITAMIN D3 2000 UNIT ORAL TABLET 1 daily, for vitamin D deficien cy VITAMIN D3 2000 UNIT ORAL TABLET CHOLECALCIFEROL Inactive AMOXICILLIN 500 MG ORAL CAPSULE 1 cap by mouth three times a day AMOXICILLIN 500 MG ORAL CAPSULE 954701 AMOXICILLIN Inactive BACTRIM DS 800-160 MG ORAL TABLET 1 tab by mouth twice daily X 10 DAYS BACTRIM DS 800-160 MG ORAL TABLET 817933 TRIMETHOPRIM-SULFAMETHOXAZOLE Inactive TRIMETHOPRIM 100 MG ORAL TABLET 1/2 qd 7 TRIMETHOPRIM 100 MG ORAL TABLET 709025 TRIMETHOPRIM Inactive CETIRIZINE HCL 5 MG ORAL TABLET Take 1 tablet by mouth daily CETIRIZINE HCL 5 MG ORAL TABLET 3823011 CETIRIZINE HCL Inactive PRAMIPEXOLE DIHYDROCHLORIDE 0.125 MG ORAL TABLET take 1 tablet po qhs for restless leg syndrome. PRAMIPEXOLE DIHYD ROCHLORIDE 0.125 MG ORAL TABLET 034409 PRAMIPEXOLE DIHYDROCHLORIDE Inactive MIRTAZAPINE 15 MG ORAL TABLET 1/2 tab by mouth at bedtime. 03/13 MIRTAZAPINE 15 MG ORAL TABLET 537088 MIRTAZAPINE In active DIFLUCAN 100 MG ORAL TABLET 1 tablet by mouth daily X 3 DAYS 201 04/09/01 DIFLUCAN 100 MG ORAL TABLET 529494 FLUCONAZOLE Inac tive DIFLUCAN 100 MG ORAL TABLET 1 tablet by mouth every other da y for 2 doses DIFLUCAN 100 MG ORAL TABLET 684785 FLUCONAZOLE Inactive CEFTIN 250 MG ORAL TABLET 1 tablet twice daily x 7 days CEFTIN 250 MG ORAL TABLET CEFUROXIME AXETIL Inactive CYMBALTA 30 MG ORAL CAPSULE DELAYED RELEASE PARTICLES 1 cap by mouth daily with 60mg CYMBALTA 30 MG ORAL CAPSULE DELAYED RELEASE PARTICLES 947115 DULOXETINE HCL Inactive CYMBALTA 60 MG ORAL CAPSULE DELAYED RELEASE PARTICLES Take 1 tablet by mouth daily CYMBALTA 60 MG ORAL CAPSULE DELAYED RELEA SE PARTICLES 422398 DULOXETINE HCL Inactive FOSAMAX 70 MG ORAL TABLET 1 po qweek. Take 30min prio r to first food/drink. Avoid lying down x 1 hour. FOSAMAX 70 MG ORAL TA BLET 704667 ALENDRONATE SODIUM Inactive DIFLUCAN 100 MG ORAL TABLET 1 tablet by mouth daily 20 19/08/26 DIFLUCAN 100 MG ORAL TABLET 19760711 FLUCONAZOLE Inactive PREDNISONE 20 MG ORAL TABLET 1 tab twice daily for 3 d ay, then one daily for three days PREDNISONE 20 MG ORAL TABLET 194046 PREDNIS ONE Inactive PROAIR HFA 108 (90 BASE) MCG/ACT INHALATION AEROSOL SO LUTION 1 puff every 6 hours as needed PROAIR HFA 108 (90 B ASE) MCG/ACT INHALATION AEROSOL SOLUTION ALBUTEROL SULFATE Inactive MECLIZINE HCL 25 MG ORAL TABLET one tab po qday prn dizziness 20 17/09/06 MECLIZINE HCL 25 MG ORAL TABLET 037724 MECLIZINE HCL Inactive PREDNISONE 20 MG ORAL TABLET 1 tablet by mouth twice d aily for 3 days, then 1 tablet daily for 3 days PREDNISONE 20 MG ORAL TA BLET 507419 PREDNISONE Inactive DIFLUCAN 100 MG ORAL TABLET 1 tablet by mouth daily 20 20/06/06 DIFLUCAN 100 MG ORAL TABLET 19760711 FLUCONAZOLE Inactive REPHRESH PRO-B ORAL CAPSULE 1 tablet daily REPHRESH PRO-B ORAL CAPSULE LACTOBACILLUS Inactive RED YEAST RICE 600 MG ORAL CAPSULE 1 pill by mouth daily RED YEAST RICE 600 MG ORAL CAPSULE 358070 RED YEAST RICE EXTRACT In active SUDAFED [...] 20 19/02/09 DIFLUCAN 100 MG ORAL TABLET 540492 FLUCONAZOLE Inactive VENLAFAXINE HCL 75 MG ORAL TABLET 1 am 1/2 at noon 201 07/07/09 VENLAFAXINE HCL 75 MG ORAL TABLET 264952 VENLAFAXINE HCL Inacti ve GABAPENTIN 300 MG ORAL CAPSULE 1 po daily GABAPENTIN 300 MG ORAL CAPSULE 713808 GABAPENTIN Inactive SUDAFED 12 HOUR 120 MG ORAL TABLET EXTENDED RELEASE 12 HOUR 1 pill twice daily if needed for congestion SUDAFED 12 HOUR 120 MG ORAL TABLET EXTENDED RELEASE 12 HOUR PSEUDOEPHEDRINE HCL Inactive AMITRIPTYLINE HCL 10 MG ORAL TABLET 1 tablet nightly by mout h for neuropathy AMITRIPTYLINE HCL 10 MG ORAL TABLET 303793 AMITRIPTYLINE HCL Inactive AMITRIPTYLINE HCL 50 MG ORAL TABLET 1 po q hs for sleep AMITRIPTYLINE HCL 50 MG ORAL TABLET 459437 AMITRIPTYLINE HCL Inac tive PREDNISONE 20 MG ORAL TABLET 1 tab twice daily for 3 d ay, then one daily for three days PREDNISONE 20 MG ORAL TABLET 843803 PREDNIS ONE Inactive ROPINIROLE HCL 0.25 MG ORAL TABLET 1 TAB PO Q HS 05/31 ROPINIROLE HCL 0.25 MG ORAL TABLET 277068 ROPINIROLE HCL Inact trent ROPINIROLE HCL 0.5 MG ORAL TABLET 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 ROPINIROLE HCL 0.5 MG ORAL TABLET 229806 ROPINIR OLE HCL Inactive ROPINIROLE HCL 1 MG ORAL TABLET 1 tab po q hs ROPINIROLE HCL 1 MG ORAL TABLET 879612 ROPINIROLE HCL Inactive ROPINIROLE HCL 2 MG ORAL TABLET 1 po at hs 7 ROPINIROLE HCL 2 MG ORAL TABLET 080492 ROPINIROLE HCL Inactive MIRAPEX 0.125 MG ORAL TABLET 1 po nightly MIRAPEX 0.125 MG ORAL TABLET 441801 PRAMIPEXOLE DIHYDROCHLORIDE Inactive MIRAPEX 0.25 MG ORAL TABLET 1 tablet by mouth at night for r estless leg MIRAPEX 0.25 MG ORAL TABLET 434898 PRAM IPEXOLE DIHYDROCHLORIDE Inactive HYDROXYZINE HCL 25 MG ORAL TABLET 1 tab po at HS prn sleep 08/02 HYDROXYZINE HCL 25 MG ORAL TABLET 296764 HYDROXYZINE HC L Inactive DIFLUCAN 100 MG ORAL TABLET 1 tablet by mouth daily 20 21/08/28 DIFLUCAN 100 MG ORAL TABLET 288791 FLUCONAZOLE Inactive BACLOFEN 10 MG ORAL TABLET Take one tablet by mouth three times a day BACLOFEN 10 MG ORAL TABLET 167571 BACLOFEN Inact trent PREDNISONE 20 MG ORAL TABLET 1 tab twice daily for 3 d ay, then one daily for three days PREDNISONE 20 MG ORAL TABLET 062820 PREDNIS ONE Inactive UNISOM SLEEPMELTS 25 MG [...] 03/03/23 BACTRIM DS 800-160 MG ORAL TABLET 126398 TRIMETHOPRIM-SULFAMETHOXAZOLE Inactive ZITHROMAX 250 MG ORAL TABLET 2 po today, then 1 po q days 2-5 20 15/02/10 ZITHROMAX 250 MG ORAL TABLET 167704 AZITHROMYCIN Mayela ctive BACTRIM DS 800-160 MG ORAL TABLET 1 tab by mouth twice daily 201 04/04/11 BACTRIM DS 800-160 MG ORAL TABLET 945937 TRIMETHOPRIM-SULFAMETHOXAZOLE Inactive BACTRIM DS 800-160 MG ORAL [...] a day AMOXICILLIN 500 MG ORAL CAPSULE 826461 AMOXICILLIN Inactive ZITHROMAX 250 MG ORAL TABLET 2 po today, then 1 po q days 2-5 20 20/04/28 ZITHROMAX 250 MG ORAL TABLET 611806 AZITHROMYCIN [place] ctive DIFLUCAN 100 MG ORAL TABLET 1 tablet by mouth daily 20 20/05/01 DIFLUCAN 100 MG ORAL TABLET 19760711 FLUCONAZOLE Inactive BACTRIM DS 800-160 MG ORAL TABLET 1 tab by mouth twice daily 201 06/09/02 BACTRIM DS 800-160 MG ORAL TABLET 19830105 TRIMETHOPRIM-SULFAMETHOXAZOLE Inactive HYDROCHLOROTHIAZIDE 12.5 MG ORAL CAPSULE 1 pill by mough daily 2 HYDROCHLOROTHIAZIDE 12.5 MG ORAL CAPSULE [facility] LOROTHIAZIDE Inactive BACTRIM DS 800-160 MG ORAL TABLET 1 tab by mouth twice daily 201 9/05/06 BACTRIM DS 800-160 MG ORAL TABLET 165986 TRIMETHOPRIM-SULFAMETHOXAZOLE Inactive DIFLUCAN 100 MG ORAL TABLET 1 tablet by mouth daily 21/03/11 DIFLUCAN 100 MG ORAL TABLET 19760711 FLUCONAZOLE Inactive ZITHROMAX 250 MG ORAL TABLET 2 po today, then 1 po q days 2-5 20 21/08/28 ZITHROMAX 250 MG ORAL TABLET 139887 AZITHROMYCIN Mayela ctive FLUCONAZOLE 100 MG ORAL [...] LIVING WILL ON FILE DURABLE POWER OF BUYER GRAIN FOR HEALTHCARE Vital Signs Date Name Value [...] Magnesium - Chemistry cholesterol, serum 196 mg/dL [phone]/07/30 triglyceride, serum, fasting 86 mg/dL 30-200 HDL cholesterol, serum 41 mg/dL 32-60 LDL cholesterol, serum 138 mg/dL 0-130 sodium, serum 140 mmol/L 268-970 5620/07/30 carbon dioxide, venous blood 28.6 mmol/L 21.0-32 [...] 5.0-8.5 Encounters Code Encounter Date Provider Facility CPT-44905 [id number] Vst-Est Level IV 10:36:10 C BRIDGET Sherman MD [facility]-56686 [id number] Vst-Est Level IV 13:49:08 [facility] [id number] Vst-Est Level IV 11:39:[address] Tesfaye Sherman MD [facility]-21943 [id number] Vst-Est Level IV 14:08:03 C BRIDGET Sherman MD [facility]-13241 Level 3 Est. Patient 18:06:36 CDT Tesfaye pearson MD [facility]-94622 [id number] Vst-Est Level IV 17:09:34 C BRIDGET Sherman MD [facility]-17095 Level 3 Est. Patient 17:27:08 CDT Lóen hernandez CARTON REPAIRER [facility]-92748 [id number] Vst-Est Level IV 14:00:[address] Tesfaye Sherman MD [facility]-46408 [id number] Vst-Est Level IV 19:27:[address] Tesfaye Sherman MD [facility]-79582 [id number] Vst-Est Level IV 10:41:41 C DT Tesfaye Sherman MD [facility]-27624 [id number] Vst-Est Level III 09:40:56 CDT Tesfaye Sherman MD [facility]-24584 Level 4 Est. Patient 22:18:12 CDT Tesfaye pearson MD [facility]-29861 Level 4 Est. Patient 14:44:33 MANAGER PACU Tesfaye pearson MD [facility]-70124 Level 4 Est. Patient 13:55:29 MANAGER PACU Tesfaye pearson MD [facility]-87251 Level 4 Est. Patient 17:07:34 MANAGER PACU Tesfaye pearson MD [facility]-69038 Level 4 Est. Patient 13:56:54 CDT Tesfaye pearson MD [facility]-56347 Level 4 Est. Patient 13:24:25 CDT Chelsea sanz APRN [facility] CPT-91474 Level 4 Est. Patient 09:14:56 CDT Tesfaye pearson MD [facility]-04335 Level 4 Est. Patient 18:40:25 MANAGER PACU Tesfaye pearson MD [facility]-06307 Level 4 Est. Patient 18:13:07 MANAGER PACU Tesfaye pearson MD [facility]-86585 Level 3 Est. Patient 10:46:32 CDT Rj cotto DO [facility] CPT-14894 Level 4 Est. Patient 20:19:25 CDT Tesfaye pearson MD [facility]-72521 Level 3 Est. Patient 09:07:31 CDT Tesfaye pearson MD [facility]-23586 Level 4 Est. Patient 13:12:56 CDT Tesfaye pearson MD [facility]-40655 Level 4 Est. Patient 21:24:55 MANAGER PACU Tesfaye pearson MD [facility] CPT-78173 Level 3 Est. Patient 13:45:04 MANAGER PACU eTsfaye pearson MD [facility] CPT-72728 Level 4 Est. Patient 13:50:45 CDT Tesfaye pearson MD [facility] CPT-83934 Level 3 Est. Patient 10:16:10 CDT Tesfaye pearson MD [facility] CPT-25763 Level 3 Est. Patient 16:36:07 MANAGER PACU Kayla jameson MD [facility] CPT-81136 Level 4 Est. Patient 16:00:14 MANAGER PACU Tesfaye pearson MD [facility]-00718 Level 4 Est. Patient 11:02:24 MANAGER PACU Tesfaye pearson MD [facility] CPT-92087 Level 3 Est. Patient 20:21:43 MANAGER PACU Kayla jameson MD [facility] CPT-44421 Level 3 Est. Patient 13:27:28 MANAGER PACU Kayla jameson MD [facility] CPT-24623 Level 4 Est. Patient 15:57:17 MANAGER PACU Tesfaye pearson MD [facility] CPT-42932 Level 3 New Patient 13:25:47 CDT Tesfaye kidd MD [facility] CPT-41384 Level 3 New Patient 17:22:21 CDT Kayla angel MD [facility] Procedures Code Procedure Name Date Entry Date Standard Desc ription CPT-85492 Prv Med Est Pt 40-64yrs 09:01:58 CDT 03/09 CPT-G0439 [facility] Annual Wellness Exam 11:25:51 CDT [id number] ([id number] 2P) Patient Reason Influenza immu nization not administered 13:25:19 MANAGER PACU CPT-30130 Bone Density - XRAY USE ONLY 15:21:33 CDT 2 CPT-39451 Venipuncture Draw Fee 16:12:22 CDT CPT-G0439 Subsequent Annual Wellness Exam 18:06:36 CDT CPT-G0439 Subsequent Annual Wellness Exam 22:18:11 CDT CPT-31441 Bone Density - XRAY USE ONLY 11:43:58 CDT 2 CPT-73292 Bone Density - XRAY USE ONLY 10:05:16 CDT 2 CPT-60970 Prv Med New Pt 40-64 yrs 18:19:25 CDT 2016 CPT-46871 Foot, right, comp min 3V - XRAY USE ONLY 10:38:34 CDT CPT-G0439 Subsequent Annual Wellness Exam 13:55:04 CDT CPT-G0438 Initial Annual Wellness Exam 11:23:17 CD T CPT-J2930 Solu Medrol 125 mg (Methyl Prednisolone Sodium Succinate) 17:29:12 MANAGER PACU CPT-34262 Abx/Therapy Injection 17:29:11 MANAGER PACU CPT-J2930 Solu Medrol 125 mg (Methyl Prednisolone Sodium Succinate) 12:34:38 MANAGER PACU CPT-J3420 Vitamin B12 1000mcg (Cyanocobalamin) 09:12:55 CDT CPT-J3420 Vitamin B12 1000mcg (Cyanocobalamin) 16:28:06 MANAGER PACU CPT-24829 Venipuncture Draw Fee 08:39:53 CDT CPT-J3420 Vitamin B12 1000mcg (Cyanocobalamin) 08:46:22 CDT CPT-11327 Abx/Therapy Injection 08:46:22 CDT CPT-J3420 Vitamin B12 1000mcg (Cyanocobalamin) 08:41:26 CDT CPT-86746 Abx/Therapy Injection 08:41:26 CDT CPT-J3420 Vitamin B12 1000mcg (Cyanocobalamin) 08:57:15 CDT CPT-08977 Abx/Therapy Injection 08:57:15 CDT CPT-J3420 Vitamin B12 1000mcg (Cyanocobalamin) 10:59:03 CDT CPT-83523 Abx/Therapy Injection 10:59:03 CDT CPT-J3420 Vitamin B12 1000mcg (Cyanocobalamin) 15:05:39 CDT CPT-47198 Abx/Therapy Injection 15:05:39 CDT CPT-J3420 Vitamin B12 1000mcg (Cyanocobalamin) 13:50:45 CDT CPT-J3420 Vitamin B12 1000mcg (Cyanocobalamin) 08:48:55 CDT CPT-80838 Abx/Therapy Injection 08:48:55 CDT CPT-J3420 Vitamin B12 1000mcg (Cyanocobalamin) 09:14:54 CDT CPT-05762 Abx/Therapy Injection 09:14:54 CDT CPT-J3420 Vitamin B12 1000mcg (Cyanocobalamin) 09:06:06 CDT CPT-73958 Abx/Therapy Injection 09:06:06 CDT CPT-J3420 Vitamin B12 1000mcg (Cyanocobalamin) 09:49:14 CDT CPT-59796 Abx/Therapy Injection 09:49:14 CDT CPT-J3420 Vitamin B12 1000mcg (Cyanocobalamin) 09:10:30 MANAGER PACU CPT-70901 Abx/Therapy Injection 09:10:30 MANAGER PACU CPT-J3420 Vitamin B12 1000mcg (Cyanocobalamin) 09:11:07 MANAGER PACU CPT-60617 Abx/Therapy Injection 09:11:07 MANAGER PACU CPT-J3420 Vitamin B12 1000mcg (Cyanocobalamin) 09:57:03 MANAGER PACU CPT-98281 Abx/Therapy Injection 09:57:03 MANAGER PACU CPT-J3420 Vitamin B12 1000mcg (Cyanocobalamin) 09:23:21 MANAGER PACU CPT-56468 Abx/Therapy Injection 09:23:21 MANAGER PACU CPT-26759 Urine Dip (Floor Use Only) 20:21:44 MANAGER PACU 201 02/12/11 CPT-07415 UA Dip Auto (Floor Use Only) 10:04:39 MANAGER PACU 2 CPT-14667 Urine Dip (Floor Use Only) 13:27:28 MANAGER PACU 201 02/12/01 CPT-44868 Bladder Scan 13:27:28 MANAGER PACU CPT-29179 Abd single AP View 14:30:51 MANAGER PACU CPT-OV Office Visit 10:15:43 CDT CPT-61569 Urine Dip (Floor Use Only) 17:22:21 CDT 201 02/09/02 CPT-56488 Bladder Scan 17:22:21 CDT
--- OUTSIDE RECORDS SUMMARY | 2020-05-05 12:03 | XMS REPORT | Clinical Summary ---
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 PRAMIPEXOLE DIHYDROCHLORIDE [id number] Acti ve Tesfaye Sherman MD Active DIFLUCAN 100 MG ORAL TABLET 1 tablet by mouth daily 20 23/12/05 FLUCONAZOLE 74717740154 No Longer Active Tesfaye Sherman MD Acti ve [facility] NIACIN FLUSH FREE 400-100 MG ORAL CAPSULE 1 daily NIACIN-INOSITOL 05058403718 No Longer Active Tesfaye Sherman MD A ctive FISH OIL 1000 MG ORAL CAPSULE DELAYED RELEASE 1 pill b y mouth daily for cholesterol OMEGA-3 FATTY ACIDS 53442138771 No Longe r Active Tesfaye Sherman MD Active UNISOM SLEEPMELTS 25 MG ORAL TABLET DISINTEGRATING 1.5 po q hs DIPHENHYDRAMINE HCL (SLEEP) 40203270955 No Longer Active Venkata Sherman MD Active PREDNISONE 20 MG ORAL TABLET 1 tab twice daily for 3 d ay, then one daily for three days PREDNISONE 40392490952 No Longer Active Tesfaye Sherman MD Active BACLOFEN 10 MG ORAL TABLET Take one tablet by mouth three times a day BACLOFEN 89293455166 No Longer Active Tesfaye Sherman MD Active LIDOCAINE 4 % EXTERNAL CREAM Apply to back prn pain LIDOCAINE 20889335805 Active Tesfaye Sherman MD Active TIZANIDINE HCL 2 MG ORAL TABLET 2 Mg in the AM and 6mg q hs 07/05 TIZANIDINE HCL 20823423493 Active Tesfaye Sherman MD Active HYDROXYZINE HCL 25 MG TABS TAKE 1 TABLET BY MOUTH AT B EDTIME NEEDED FOR SLEEP HYDROXYZINE HCL 28900770994 Active JOSHUA Lindsay Active FLUCONAZOLE 100 MG ORAL TABLET 1 by mouth daily for yeast infect ion FLUCONAZOLE 08669809384 No Longer Active Laurence Dominguez Acti ve ZITHROMAX 250 MG ORAL TABLET 2 po today, then 1 po q days 2-5 20 21/08/28 AZITHROMYCIN 76342222638 No Longer Active Tesfaye Sherman MD Active DIFLUCAN 100 MG ORAL TABLET 1 tablet by mouth daily 20 21/08/28 FLUCONAZOLE 79638993838 No Longer Active Tesfaye Sherman MD Acti ve HYDROXYZINE HCL 25 MG ORAL TABLET 1 tab po at HS prn sleep 08/02 HYDROXYZINE HCL 92331417176 No Longer Active Tesfaye Sherman MD Active MIRAPEX 0.5 MG ORAL TABLET 1 tablet at night for restless leg. 2018 PRAMIPEXOLE DIHYDROCHLORIDE 06830752706 Active Laurenceyohana Dominguez Active MIRAPEX 0.25 MG ORAL TABLET 1 tablet by mouth at night for r estless leg PRAMIPEXOLE DIHYDROCHLORIDE 33141150742 No Longer Act trent Laurence Raida Active MIRAPEX 0.125 MG ORAL TABLET 1 po nightly PRAMIPEXOLE DIHYDROCHLORIDE 32119112035 No Longer Active Laurenceyohana Dominguez Active ROPINIROLE HCL 2 MG ORAL TABLET 1 po at hs ROPI NIROLE HCL 54006669541 No Longer Active Laurenceyohana Dominguez Active ROPINIROLE HCL 1 MG ORAL TABLET 1 tab po q hs ROPINIROLE HCL 84990652652 No Longer Active Laurence Dominguez Active ROPINIROLE HCL 0.5 MG ORAL TABLET 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 ROPINIROLE HCL 13583874348 No Longer Active MARCUS Panchal Active ROPINIROLE HCL 0.25 MG ORAL TABLET 1 TAB PO Q HS 05/31 ROPINIROLE HCL 02029170062 No Longer Active Tesfaye Sherman MD Ac tive PREDNISONE 20 MG ORAL TABLET 1 tab twice daily for 3 d ay, then one daily for three days PREDNISONE 32867063242 No Longer Active Tesfaye Sherman MD Active AMITRIPTYLINE HCL 50 MG ORAL TABLET 1 po q hs for sleep AMITRIPTYLINE HCL 42124803115 No Longer Active Tesfaye Sherman MD Active AMITRIPTYLINE HCL 10 MG ORAL TABLET 1 tablet nightly by mout h for neuropathy AMITRIPTYLINE HCL 35807092855 No Longer Active MARCUS Stapleton Active DIFLUCAN 100 MG ORAL TABLET 1 tablet by mouth daily 20 21/03/11 FLUCONAZOLE 05892900123 No Longer Active Tesfaye Sherman MD Acti ve BACTRIM DS 800-160 MG ORAL TABLET 1 tab by mouth twice daily 201 07/08/06 TRIMETHOPRIM-SULFAMETHOXAZOLE 47257856737 No Longer Active D patricia Sherman MD Active CLARITIN 10 MG ORAL TABLET Take one by mouth daily LORATADINE 46211241337 Active Tesfaye Sherman MD Active SUDAFED 12 HOUR 120 MG ORAL TABLET EXTENDED RELEASE 12 HOUR 1 pill twice daily if needed for congestion PSEUDOEPHEDRINE HCL 696518414 13 No Longer Active Tesfaye Sherman MD Active FENOFIBRATE 145 MG ORAL TABLET 1 by mouth daily FENOFIBRATE 66379729061 Active Laurence Dominguez Active GABAPENTIN 300 MG ORAL CAPSULE 1 po daily GABAP ENTIN 78666024403 No Longer Active Tesfaye Sehrman MD Active HYDROCHLOROTHIAZIDE 12.5 MG ORAL CAPSULE 1 pill by mough daily 2 HYDROCHLOROTHIAZIDE 78139018669 No Longer Active León Mariee APRN Active VENLAFAXINE HCL 75 MG ORAL TABLET 1 am 1/2 at noon 201 07/07/09 VENLAFAXINE HCL 42020869788 No Longer Active León Mariee APRN Act trent DIFLUCAN 100 MG ORAL TABLET 1 tablet by mouth daily 20 19/02/09 FLUCONAZOLE 28782358480 No Longer Active León Kodi LUMBER KILN OPERATOR Active DIFLUCAN 100 MG ORAL TABLET 1 tablet by mouth daily 20 19/02/09 FLUCONAZOLE 33984571802 No Longer Active León Mariee APRN Active OXYCODONE-ACETAMINOPHEN 5-325 MG ORAL TABLET Take one tablet by mouth every 6 hours 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 Use sparingly OXYCODONE-ACETAMINOPHEN 63907012884 Active Tesfaye villar MD Active CLONAZEPAM 0.5 MG ORAL TABLET Take 1/2 qam, and 1/2 qpm CLONAZEPAM 73802935986 Active Tesfaye Sherman MD Active PRELIEF 340 (65-50) MG (CA-P) ORAL TABLET CALCIUM GLYCEROPHOSPHATE 33821331402 No Longer Active Tesfaye Sherman MD Active SUDAFED 24 HOUR 240 MG ORAL TABLET EXTENDED RELEASE 24 HOUR 1 tab po daily PSEUDOEPHEDRINE HCL 63251618918 No Longer Active Raul yanet Sherman MD Active RED YEAST RICE 600 MG ORAL CAPSULE 1 pill by mouth daily RED YEAST RICE EXTRACT 49639447646 No Longer Active Tesfaye Sherman MD Active REPHRESH PRO-B ORAL CAPSULE 1 tablet daily LACT OBACILLUS 89063499429 No Longer Active Tesfaye Sherman MD Active ABILIFY 2 MG ORAL TABLET 1 by mouth daily. MARIA ELENA PIPRAZOLE 63036912800 Active Tesfaye Sherman MD Active CYMBALTA 60 MG ORAL CAPSULE DELAYED RELEASE PARTICLES 1 cap by mouth daily for pain DULOXETINE HCL 50147742015 Active MARCUS Lindsay Active DIFLUCAN 100 MG ORAL TABLET 1 tablet by mouth daily 20 20/06/06 FLUCONAZOLE 63629462000 No Longer Active Tesfaye Sherman MD Acti ve PREDNISONE 20 MG ORAL TABLET 1 tablet by mouth twice d aily for 3 days, then 1 tablet daily for 3 days PREDNISONE 41553024646 No L onger Active Tesfaye Sherman MD Active BACTRIM DS 800-160 MG ORAL TABLET 1 tab by mouth twice daily 201 06/09/02 TRIMETHOPRIM-SULFAMETHOXAZOLE 69302899259 No Longer Active Fer mastersa Angelica Active DIFLUCAN 100 MG ORAL TABLET 1 tablet by mouth daily 20 20/05/01 FLUCONAZOLE 54435997135 No Longer Active Tesfaye Sherman MD Acti ve ZITHROMAX 250 MG ORAL TABLET 2 po today, then 1 po q days 2-5 20 20/04/28 AZITHROMYCIN 87900237258 No Longer Active Tesfaye Sherman MD Active MECLIZINE HCL 25 MG ORAL TABLET one tab po qday prn dizziness 20 17/09/06 MECLIZINE HCL 38755578710 No Longer Active Tesfaye Sherman MD Active PROAIR HFA 108 (90 BASE) MCG/ACT INHALATION AEROSOL SO LUTION 1 puff every 6 hours as needed ALBUTEROL SULFATE 71078138781 No Long er Active Tesfaye Sherman MD Active PREDNISONE 20 MG ORAL TABLET 1 tab twice daily for 3 d ay, then one daily for three days PREDNISONE 17353975274 No Longer Active Tesfaye Shreman MD Active MECLIZINE HCL 25 MG ORAL TABLET one 4 times a day as needed for dizziness MECLIZINE HCL 93941817531 Active Tesfaye Sherman MD Active AMOXICILLIN 500 MG ORAL CAPSULE 1 cap by mouth three times a day AMOXICILLIN 74883286275 No Longer Active Laurence Angelica Acti ve DIFLUCAN 100 MG ORAL TABLET 1 tablet by mouth daily 20 19/08/26 FLUCONAZOLE 73040566592 No Longer Active Tesfaye Sherman MD Acti ve BACTRIM DS 800-160 MG ORAL TABLET 1 tab by mouth twice daily 201 05/10/28 TRIMETHOPRIM-SULFAMETHOXAZOLE 74313191845 No Longer Active A mirna Dominguez Active FOSAMAX 70 MG ORAL TABLET 1 po qweek. Take 30min prio r to first food/drink. Avoid lying down x 1 hour. ALENDRONATE SODIUM 94477947 144 No Longer Active Laurence Dominguez Active CYMBALTA 60 MG ORAL CAPSULE DELAYED RELEASE PARTICLES Take 1 tablet by mouth daily DULOXETINE HCL 79194072497 No Longer Active Edith Burch MD Active CYMBALTA 30 MG ORAL CAPSULE DELAYED RELEASE PARTICLES 1 cap by mouth daily with 60mg DULOXETINE HCL 66575563528 No Longer Active Jordan Burch MD Active DIFLUCAN 100 MG ORAL TABLET 1 tablet by mouth daily 19/03/05 FLUCONAZOLE 99580843379 No Longer Active Tesfaye Sherman MD Acti ve BACTRIM DS 800-160 MG ORAL TABLET 1 tab by mouth twice daily 201 05/06/28 TRIMETHOPRIM-SULFAMETHOXAZOLE 48426578553 No Longer Active Yanet Sherman MD Active BACTRIM DS 800-160 MG ORAL TABLET 1 tab by mouth twice daily 201 05/04/15 TRIMETHOPRIM-SULFAMETHOXAZOLE 33273790045 No Longer Active Yanet Sherman MD Active DIFLUCAN 150 MG ORAL TABLET 1 tablet by mouth daily 20 18/09/20 FLUCONAZOLE 30208553923 No Longer Active Tesfaye Sherman MD Acti ve BACTRIM DS 800-160 MG ORAL TABLET 1 tab by mouth twice daily 201 04/13/17 TRIMETHOPRIM-SULFAMETHOXAZOLE 43816037291 No Longer Active Yanet Sherman MD Active CEFTIN 250 MG ORAL TABLET 1 tablet twice daily x 7 days CEFUROXIME AXETIL 73917879828 No Longer Active Tesfaye Sherman MD Active DIFLUCAN 100 MG ORAL TABLET 1 tablet by mouth every other da y for 2 doses FLUCONAZOLE 05318805409 No Longer Active Tesfaye barron MD Active DIFLUCAN 100 MG ORAL TABLET 1 tablet by mouth daily X 3 DAYS 201 04/09/01 FLUCONAZOLE 50864625883 No Longer Active Rj Moss DO Ac tive MIRTAZAPINE 15 MG ORAL TABLET 1/2 tab by mouth at bedtime. 03/13 MIRTAZAPINE 66451966239 No Longer Active Tesfaye Sherman MD Active BACTRIM DS 800-160 MG ORAL TABLET 1 tab by mouth twice daily 201 04/09/01 TRIMETHOPRIM-SULFAMETHOXAZOLE 68497205732 No Longer Active Yanet Sherman MD Active PRAMIPEXOLE DIHYDROCHLORIDE 0.125 MG ORAL TABLET take 1 tablet po qhs for restless leg syndrome. PRAMIPEXOLE DIHYDROCHLORI DE 80014469272 No Longer Active Tesfaye Sherman MD Active MAGNESIUM 400 MG ORAL TABLET 1 tab po daily MAGNE SIUM 30988022630 Active Chelsea Cardenas APRN Active CETIRIZINE HCL 5 MG ORAL TABLET Take 1 tablet by mouth daily CETIRIZINE HCL 36485029128 No Longer Active Chelsea Cardenas APRN Activ e TRIMETHOPRIM 100 MG ORAL TABLET 1/2 qd TRIM ETHOPRIM 04441408523 No Longer Active Chelsea Cardenas APRN Active BACTRIM DS 800-160 MG ORAL TABLET 1 tab by mouth twice daily 201 04/04/11 TRIMETHOPRIM-SULFAMETHOXAZOLE 63655733751 No Longer Active Yanet Sherman MD Active BACTRIM DS 800-160 MG ORAL TABLET 1 tab by mouth twice daily X 10 DAYS TRIMETHOPRIM-SULFAMETHOXAZOLE 83994183527 No Longer Active Tesfaye Sherman MD Active AMOXICILLIN 500 MG ORAL CAPSULE 1 cap by mouth three times a day AMOXICILLIN 14415795364 No Longer Active Adriana Arredondo, MARCUS A ctive B-12 1000 MCG ORAL LOZENGE 1 tab po daily CYANO COBALAMIN 16854181989 Active Tesfaye Sherman MD Active VITAMIN D3 2000 UNIT ORAL TABLET 1 daily, for vitamin D deficien cy CHOLECALCIFEROL 42053214568 No Longer Active Tesfaye Sherman MD Active ZITHROMAX 250 MG ORAL TABLET 2 po today, then 1 po q days 2-5 20 15/02/10 AZITHROMYCIN 48439133709 No Longer Active Tesfaye Sherman MD Active BACTRIM DS 800-160 MG ORAL TABLET 1 tab by mouth twice daily 201 03/03/23 TRIMETHOPRIM-SULFAMETHOXAZOLE 98950468166 No Longer Active Yanet Sherman MD Active DIFLUCAN 150 MG ORAL TABLET 1 qd FLUCONAZOL E 03642393424 No Longer Active Kayla Cooper MD Active FLUTICASONE PROPIONATE 50 MCG/ACT NASAL SUSPENSION 1 spray each nostril twice daily FLUTICASONE PROPIONATE 17184816938 Active Yanet Sherman MD Active LOVASTATIN 20 MG ORAL TABLET Take 1 tablet by mouth daily LOVASTATIN 43153281259 No Longer Active Tesfaye Sherman MD Acti ve MELOXICAM 7.5 MG ORAL TABLET 1 tablet by mouth daily 2 MELOXICAM 44943164047 No Longer Active Tesfaye Sherman MD Acti ve GABAPENTIN 300 MG ORAL CAPSULE Take two tablets by mouth every e vening GABAPENTIN 77614073143 No Longer Active Edith Burch MD A ctive GABAPENTIN 300 MG ORAL CAPSULE Take two tablets by mouth every e vening GABAPENTIN 300 MG ORAL CAPSULE 280795 GABAPENTIN I nactive MELOXICAM 7.5 MG ORAL TABLET 1 tablet by mouth daily 2 MELOXICAM 7.5 MG ORAL TABLET 112830 MELOXICAM Inactive LOVASTATIN 20 MG ORAL TABLET Take 1 tablet by mouth daily LOVASTATIN 20 MG ORAL TABLET 931214 LOVASTATIN Inactive DIFLUCAN 150 MG ORAL TABLET 1 qd DIFLUCAN 150 MG ORAL TABLET 326713 FLUCONAZOLE Inactive VITAMIN D3 2000 UNIT ORAL TABLET 1 daily, for vitamin D deficien cy VITAMIN D3 2000 UNIT ORAL TABLET CHOLECALCIFEROL Inactive AMOXICILLIN 500 MG ORAL CAPSULE 1 cap by mouth three times a day AMOXICILLIN 500 MG ORAL CAPSULE 824449 AMOXICILLIN Inactive BACTRIM DS 800-160 MG ORAL TABLET 1 tab by mouth twice daily X 10 DAYS BACTRIM DS 800-160 MG ORAL TABLET 204059 TRIMETHOPRIM-SULFAMETHOXAZOLE Inactive TRIMETHOPRIM 100 MG ORAL TABLET 1/2 qd 7 TRIMETHOPRIM 100 MG ORAL TABLET 451664 TRIMETHOPRIM Inactive CETIRIZINE HCL 5 MG ORAL TABLET Take 1 tablet by mouth daily CETIRIZINE HCL 5 MG ORAL TABLET 3738749 CETIRIZINE HCL Inactive PRAMIPEXOLE DIHYDROCHLORIDE 0.125 MG ORAL TABLET take 1 tablet po qhs for restless leg syndrome. PRAMIPEXOLE DIHYD ROCHLORIDE 0.125 MG ORAL TABLET 957819 PRAMIPEXOLE DIHYDROCHLORIDE Inactive MIRTAZAPINE 15 MG ORAL TABLET 1/2 tab by mouth at bedtime. 03/13 MIRTAZAPINE 15 MG ORAL TABLET 954549 MIRTAZAPINE In active DIFLUCAN 100 MG ORAL TABLET 1 tablet by mouth daily X 3 DAYS 201 04/09/01 DIFLUCAN 100 MG ORAL TABLET 958020 FLUCONAZOLE Inac tive DIFLUCAN 100 MG ORAL TABLET 1 tablet by mouth every other da y for 2 doses DIFLUCAN 100 MG ORAL TABLET 615406 FLUCONAZOLE Inactive CEFTIN 250 MG ORAL TABLET 1 tablet twice daily x 7 days CEFTIN 250 MG ORAL TABLET CEFUROXIME AXETIL Inactive CYMBALTA 30 MG ORAL CAPSULE DELAYED RELEASE PARTICLES 1 cap by mouth daily with 60mg CYMBALTA 30 MG ORAL CAPSULE DELAYED RELEASE PARTICLES 264077 DULOXETINE HCL Inactive CYMBALTA 60 MG ORAL CAPSULE DELAYED RELEASE PARTICLES Take 1 tablet by mouth daily CYMBALTA 60 MG ORAL CAPSULE DELAYED RELEA SE PARTICLES 186703 DULOXETINE HCL Inactive FOSAMAX 70 MG ORAL TABLET 1 po qweek. Take 30min prio r to first food/drink. Avoid lying down x 1 hour. FOSAMAX 70 MG ORAL TA BLET 680255 ALENDRONATE SODIUM Inactive DIFLUCAN 100 MG ORAL TABLET 1 tablet by mouth daily 20 19/08/26 DIFLUCAN 100 MG ORAL TABLET 19760711 FLUCONAZOLE Inactive PREDNISONE 20 MG ORAL TABLET 1 tab twice daily for 3 d ay, then one daily for three days PREDNISONE 20 MG ORAL TABLET 907004 PREDNIS ONE Inactive PROAIR HFA 108 (90 BASE) MCG/ACT INHALATION AEROSOL SO LUTION 1 puff every 6 hours as needed PROAIR HFA 108 (90 B ASE) MCG/ACT INHALATION AEROSOL SOLUTION ALBUTEROL SULFATE Inactive MECLIZINE HCL 25 MG ORAL TABLET one tab po qday prn dizziness 20 17/09/06 MECLIZINE HCL 25 MG ORAL TABLET 178580 MECLIZINE HCL Inactive PREDNISONE 20 MG ORAL TABLET 1 tablet by mouth twice d aily for 3 days, then 1 tablet daily for 3 days PREDNISONE 20 MG ORAL TA BLET 292930 PREDNISONE Inactive DIFLUCAN 100 MG ORAL TABLET 1 tablet by mouth daily 20 20/06/06 DIFLUCAN 100 MG ORAL TABLET 19760711 FLUCONAZOLE Inactive REPHRESH PRO-B ORAL CAPSULE 1 tablet daily REPHRESH PRO-B ORAL CAPSULE LACTOBACILLUS Inactive RED YEAST RICE 600 MG ORAL CAPSULE 1 pill by mouth daily RED YEAST RICE 600 MG ORAL CAPSULE 824613 RED YEAST RICE EXTRACT In active SUDAFED [...] 20 19/02/09 DIFLUCAN 100 MG ORAL TABLET 442274 FLUCONAZOLE Inactive VENLAFAXINE HCL 75 MG ORAL TABLET 1 am 1/2 at noon 201 07/07/09 VENLAFAXINE HCL 75 MG ORAL TABLET 904800 VENLAFAXINE HCL Inacti ve GABAPENTIN 300 MG ORAL CAPSULE 1 po daily GABAPENTIN 300 MG ORAL CAPSULE 116887 GABAPENTIN Inactive SUDAFED 12 HOUR 120 MG ORAL TABLET EXTENDED RELEASE 12 HOUR 1 pill twice daily if needed for congestion SUDAFED 12 HOUR 120 MG ORAL TABLET EXTENDED RELEASE 12 HOUR PSEUDOEPHEDRINE HCL Inactive AMITRIPTYLINE HCL 10 MG ORAL TABLET 1 tablet nightly by mout h for neuropathy AMITRIPTYLINE HCL 10 MG ORAL TABLET 767455 AMITRIPTYLINE HCL Inactive AMITRIPTYLINE HCL 50 MG ORAL TABLET 1 po q hs for sleep AMITRIPTYLINE HCL 50 MG ORAL TABLET 150308 AMITRIPTYLINE HCL Inac tive PREDNISONE 20 MG ORAL TABLET 1 tab twice daily for 3 d ay, then one daily for three days PREDNISONE 20 MG ORAL TABLET 513315 PREDNIS ONE Inactive ROPINIROLE HCL 0.25 MG ORAL TABLET 1 TAB PO Q HS 05/31 ROPINIROLE HCL 0.25 MG ORAL TABLET 074374 ROPINIROLE HCL Inact trent ROPINIROLE HCL 0.5 MG ORAL TABLET 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 ROPINIROLE HCL 0.5 MG ORAL TABLET 514111 ROPINIR OLE HCL Inactive ROPINIROLE HCL 1 MG ORAL TABLET 1 tab po q hs ROPINIROLE HCL 1 MG ORAL TABLET 897316 ROPINIROLE HCL Inactive ROPINIROLE HCL 2 MG ORAL TABLET 1 po at hs 7 ROPINIROLE HCL 2 MG ORAL TABLET 746304 ROPINIROLE HCL Inactive MIRAPEX 0.125 MG ORAL TABLET 1 po nightly MIRAPEX 0.125 MG ORAL TABLET 812539 PRAMIPEXOLE DIHYDROCHLORIDE Inactive MIRAPEX 0.25 MG ORAL TABLET 1 tablet by mouth at night for r estless leg MIRAPEX 0.25 MG ORAL TABLET 919318 PRAM IPEXOLE DIHYDROCHLORIDE Inactive HYDROXYZINE HCL 25 MG ORAL TABLET 1 tab po at HS prn sleep 08/02 HYDROXYZINE HCL 25 MG ORAL TABLET 115462 HYDROXYZINE HC L Inactive DIFLUCAN 100 MG ORAL TABLET 1 tablet by mouth daily 20 21/08/28 DIFLUCAN 100 MG ORAL TABLET 874738 FLUCONAZOLE Inactive BACLOFEN 10 MG ORAL TABLET Take one tablet by mouth three times a day BACLOFEN 10 MG ORAL TABLET 949853 BACLOFEN Inact trent PREDNISONE 20 MG ORAL TABLET 1 tab twice daily for 3 d ay, then one daily for three days PREDNISONE 20 MG ORAL TABLET 305647 PREDNIS ONE Inactive UNISOM SLEEPMELTS 25 MG [...] 03/03/23 BACTRIM DS 800-160 MG ORAL TABLET 308223 TRIMETHOPRIM-SULFAMETHOXAZOLE Inactive ZITHROMAX 250 MG ORAL TABLET 2 po today, then 1 po q days 2-5 20 15/02/10 ZITHROMAX 250 MG ORAL TABLET 548212 AZITHROMYCIN Mayela ctive BACTRIM DS 800-160 MG ORAL TABLET 1 tab by mouth twice daily 201 04/04/11 BACTRIM DS 800-160 MG ORAL TABLET 195780 TRIMETHOPRIM-SULFAMETHOXAZOLE Inactive BACTRIM DS 800-160 MG ORAL [...] a day AMOXICILLIN 500 MG ORAL CAPSULE 154158 AMOXICILLIN Inactive ZITHROMAX 250 MG ORAL TABLET 2 po today, then 1 po q days 2-5 20 20/04/28 ZITHROMAX 250 MG ORAL TABLET 537673 AZITHROMYCIN [place] ctive DIFLUCAN 100 MG ORAL TABLET 1 tablet by mouth daily 20 20/05/01 DIFLUCAN 100 MG ORAL TABLET 19760711 FLUCONAZOLE Inactive BACTRIM DS 800-160 MG ORAL TABLET 1 tab by mouth twice daily 201 06/09/02 BACTRIM DS 800-160 MG ORAL TABLET 19830105 TRIMETHOPRIM-SULFAMETHOXAZOLE Inactive HYDROCHLOROTHIAZIDE 12.5 MG ORAL CAPSULE 1 pill by mough daily 2 HYDROCHLOROTHIAZIDE 12.5 MG ORAL CAPSULE [facility] LOROTHIAZIDE Inactive BACTRIM DS 800-160 MG ORAL TABLET 1 tab by mouth twice daily 201 9/05/06 BACTRIM DS 800-160 MG ORAL TABLET 230057 TRIMETHOPRIM-SULFAMETHOXAZOLE Inactive DIFLUCAN 100 MG ORAL TABLET 1 tablet by mouth daily 21/03/11 DIFLUCAN 100 MG ORAL TABLET 19760711 FLUCONAZOLE Inactive ZITHROMAX 250 MG ORAL TABLET 2 po today, then 1 po q days 2-5 20 21/08/28 ZITHROMAX 250 MG ORAL TABLET 932723 AZITHROMYCIN Mayela ctive FLUCONAZOLE 100 MG ORAL [...] LIVING WILL ON FILE 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-70667 [id number] Vst-Est Level IV 13:49:08 [facility]CHANICAL [facility]IST [facility] [id number] Vst-Est Level IV 11:39:[address] Tesfaye Sherman MD [facility]-23791 79765-Aer Vst-Est Level IV 14:08:03 C BRIDGET Sherman MD [facility]-40534 Level 3 Est. Patient 18:06:36 CDT Tesfaye pearson MD [facility]-67137 10533-Ayl Vst-Est Level IV 17:09:34 C BRIDGET Sherman MD [facility]-12962 Level 3 Est. Patient 17:27:08 CDT León hernandez LUMBER KILN OPERATOR [facility]-94571 22168-Oas Vst-Est Level IV 14:00:[address] Tesfaye Sherman MD [facility]-70772 [id number] Vst-Est Level IV 19:27:[address] Tesfaye Sherman MD [facility]-38875 43586-Pee Vst-Est Level IV 10:41:41 C DT Tesfaye Sherman MD [facility]-64596 [id number] Vst-Est Level III 09:40:56 CDT Tesfaye Sherman MD [facility]-37307 Level 4 Est. Patient 22:18:12 CDT Tesfaye pearson MD [facility]-47474 Level 4 Est. Patient 14:44:33 MECHANICAL ARTIST Tesfaye pearson MD [facility]-38218 Level 4 Est. Patient 13:55:29 MECHANICAL ARTIST Tesfaye pearson MD [facility]-76789 Level 4 Est. Patient 17:07:34 MECHANICAL ARTIST Tesfaye pearson MD [facility]-64049 Level 4 Est. Patient 13:56:54 CDT Tesfaye pearson MD [facility]-63225 Level 4 Est. Patient 13:24:25 CDT Chelsea sanz APRN [facility] CPT-96838 Level 4 Est. Patient 09:14:56 CDT Tesfaye pearson MD [facility]-30005 Level 4 Est. Patient 18:40:25 MECHANICAL ARTIST Tesfaye pearson MD [facility]-80274 Level 4 Est. Patient 18:13:07 MECHANICAL ARTIST Tesfaye pearson MD [facility]-15947 Level 3 Est. Patient 10:46:32 CDT Rj cotto DO [facility] CPT-42879 Level 4 Est. Patient 20:19:25 CDT Tesfaye pearson MD [facility]-93681 Level 3 Est. Patient 09:07:31 CDT Tesfaye pearson MD [facility]-68263 Level 4 Est. Patient 13:12:56 CDT Tesfaye pearson MD [facility]-43185 Level 4 Est. Patient 21:24:55 MECHANICAL ARTIST Tesfaye pearson MD [facility] CPT-06253 Level 3 Est. Patient 13:45:04 MECHANICAL ARTIST Tesfaye pearson MD [facility] CPT-33658 Level 4 Est. Patient 13:50:45 CDT Tesfaye pearson MD [facility] CPT-78795 Level 3 Est. Patient 10:16:10 CDT Tesfaye pearson MD [facility] CPT-34349 Level 3 Est. Patient 16:36:07 MECHANICAL ARTIST Kayla jameson MD [facility] CPT-57879 Level 4 Est. Patient 16:00:14 MECHANICAL ARTIST Tesfaye pearson MD [facility]-38536 Level 4 Est. Patient 11:02:24 MECHANICAL ARTIST Tesfaye pearson MD [facility] CPT-30164 Level 3 Est. Patient 20:21:43 MECHANICAL ARTIST Kayla jameson MD [facility] CPT-36792 Level 3 Est. Patient 13:27:28 MECHANICAL ARTIST Kayla jameson MD [facility] CPT-85993 Level 4 Est. Patient 15:57:17 MECHANICAL ARTIST Tesfaye pearson MD [facility] CPT-31536 Level 3 New Patient 13:25:47 CDT Tesfaye kidd MD [facility] CPT-98770 Level 3 New Patient 17:22:21 CDT Kayla angel MD [facility] Procedures Code Procedure Name Date Entry Date Standard Desc ription CPT-41189 Prv Med Est Pt 40-64yrs 09:01:58 CDT 03/09 CPT-G0439 [facility] Annual Wellness Exam 11:25:51 CDT [id number] ([id number] 2P) Patient Reason Influenza immu nization not administered 13:25:19 MECHANICAL ARTIST CPT-24470 Bone Density - XRAY USE ONLY 15:21:33 CDT 2 CPT-05559 Venipuncture Draw Fee 16:12:22 CDT CPT-G0439 Subsequent Annual Wellness Exam 18:06:36 CDT CPT-G0439 Subsequent Annual Wellness Exam 22:18:11 CDT CPT-89564 Bone Density - XRAY USE ONLY 11:43:58 CDT 2 CPT-17862 Bone Density - XRAY USE ONLY 10:05:16 CDT 2 CPT-22185 Prv Med New Pt 40-64 yrs 18:19:25 CDT 2016 CPT-00416 Foot, right, comp min 3V - XRAY USE ONLY 10:38:34 CDT CPT-G0439 Subsequent Annual Wellness Exam 13:55:04 CDT CPT-G0438 Initial Annual Wellness Exam 11:23:17 CD T CPT-J2930 Solu Medrol 125 mg (Methyl Prednisolone Sodium Succinate) 17:29:12 MECHANICAL ARTIST CPT-42381 Abx/Therapy Injection 17:29:11 MECHANICAL ARTIST CPT-J2930 Solu Medrol 125 mg (Methyl Prednisolone Sodium Succinate) 12:34:38 MECHANICAL ARTIST CPT-J3420 Vitamin B12 1000mcg (Cyanocobalamin) 09:12:55 CDT CPT-J3420 Vitamin B12 1000mcg (Cyanocobalamin) 16:28:06 MECHANICAL ARTIST CPT-23691 Venipuncture Draw Fee 08:39:53 CDT CPT-J3420 Vitamin B12 1000mcg (Cyanocobalamin) 08:46:22 CDT CPT-76311 Abx/Therapy Injection 08:46:22 CDT CPT-J3420 Vitamin B12 1000mcg (Cyanocobalamin) 08:41:26 CDT CPT-51728 Abx/Therapy Injection 08:41:26 CDT CPT-J3420 Vitamin B12 1000mcg (Cyanocobalamin) 08:57:15 CDT CPT-91684 Abx/Therapy Injection 08:57:15 CDT CPT-J3420 Vitamin B12 1000mcg (Cyanocobalamin) 10:59:03 CDT CPT-97353 Abx/Therapy Injection 10:59:03 CDT CPT-J3420 Vitamin B12 1000mcg (Cyanocobalamin) 15:05:39 CDT CPT-35006 Abx/Therapy Injection 15:05:39 CDT CPT-J3420 Vitamin B12 1000mcg (Cyanocobalamin) 13:50:45 CDT CPT-J3420 Vitamin B12 1000mcg (Cyanocobalamin) 08:48:55 CDT CPT-27450 Abx/Therapy Injection 08:48:55 CDT CPT-J3420 Vitamin B12 1000mcg (Cyanocobalamin) 09:14:54 CDT CPT-00241 Abx/Therapy Injection 09:14:54 CDT CPT-J3420 Vitamin B12 1000mcg (Cyanocobalamin) 09:06:06 CDT CPT-88796 Abx/Therapy Injection 09:06:06 CDT CPT-J3420 Vitamin B12 1000mcg (Cyanocobalamin) 09:49:14 CDT CPT-80210 Abx/Therapy Injection 09:49:14 CDT CPT-J3420 Vitamin B12 1000mcg (Cyanocobalamin) 09:10:30 MECHANICAL ARTIST CPT-51593 Abx/Therapy Injection 09:10:30 MECHANICAL ARTIST CPT-J3420 Vitamin B12 1000mcg (Cyanocobalamin) 09:11:07 MECHANICAL ARTIST CPT-45323 Abx/Therapy Injection 09:11:07 MECHANICAL ARTIST CPT-J3420 Vitamin B12 1000mcg (Cyanocobalamin) 09:57:03 MECHANICAL ARTIST CPT-43666 Abx/Therapy Injection 09:57:03 MECHANICAL ARTIST CPT-J3420 Vitamin B12 1000mcg (Cyanocobalamin) 09:23:21 MECHANICAL ARTIST CPT-87442 Abx/Therapy Injection 09:23:21 MECHANICAL ARTIST CPT-50788 Urine Dip (Floor Use Only) 20:21:44 MECHANICAL ARTIST 201 02/12/11 CPT-21152 UA Dip Auto (Floor Use Only) 10:04:39 MECHANICAL ARTIST 2 CPT-07687 Urine Dip (Floor Use Only) 13:27:28 MECHANICAL ARTIST 201 02/12/01 CPT-78719 Bladder Scan 13:27:28 MECHANICAL ARTIST CPT-37267 Abd single AP View 14:30:51 MECHANICAL ARTIST CPT-OV Office Visit 10:15:43 CDT CPT-20910 Urine Dip (Floor Use Only) 17:22:21 CDT 201 02/09/02 CPT-41116 Bladder Scan 17:22:21 CDT
--- OUTSIDE RECORDS SUMMARY | 2020-05-05 12:04 | XMS REPORT | Clinical Summary ---
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 PRAMIPEXOLE DIHYDROCHLORIDE [id number] Acti ve Tesfaye Sherman MD Active DIFLUCAN 100 MG ORAL TABLET 1 tablet by mouth daily 20 23/12/05 FLUCONAZOLE 35503188878 No Longer Active Tesfaye Sherman MD Acti ve [facility] NIACIN FLUSH FREE 400-100 MG ORAL CAPSULE 1 daily NIACIN-INOSITOL 27752143996 No Longer Active Tesfaye Sherman MD A ctive FISH OIL 1000 MG ORAL CAPSULE DELAYED RELEASE 1 pill b y mouth daily for cholesterol OMEGA-3 FATTY ACIDS 13984025073 No Longe r Active Tesfaye Sherman MD Active UNISOM SLEEPMELTS 25 MG ORAL TABLET DISINTEGRATING 1.5 po q hs DIPHENHYDRAMINE HCL (SLEEP) 73541653660 No Longer Active Venkata Sherman MD Active PREDNISONE 20 MG ORAL TABLET 1 tab twice daily for 3 d ay, then one daily for three days PREDNISONE 12536286357 No Longer Active Tesfaye Sherman MD Active BACLOFEN 10 MG ORAL TABLET Take one tablet by mouth three times a day BACLOFEN 60769177543 No Longer Active Tesfaye Sherman MD Active LIDOCAINE 4 % EXTERNAL CREAM Apply to back prn pain LIDOCAINE 78668471871 Active Tesfaye Sherman MD Active TIZANIDINE HCL 2 MG ORAL TABLET 2 Mg in the AM and 6mg q hs 07/05 TIZANIDINE HCL 27564699961 Active Tesfaye Sherman MD Active HYDROXYZINE HCL 25 MG TABS TAKE 1 TABLET BY MOUTH AT B EDTIME NEEDED FOR SLEEP HYDROXYZINE HCL 53160669677 Active JOSHUA Lindsay Active FLUCONAZOLE 100 MG ORAL TABLET 1 by mouth daily for yeast infect ion FLUCONAZOLE 55252879374 No Longer Active Laurence Dominguez Acti ve ZITHROMAX 250 MG ORAL TABLET 2 po today, then 1 po q days 2-5 20 21/08/28 AZITHROMYCIN 61915287825 No Longer Active Tesfaye Sherman MD Active DIFLUCAN 100 MG ORAL TABLET 1 tablet by mouth daily 20 21/08/28 FLUCONAZOLE 09194673170 No Longer Active Tesfaye Sherman MD Acti ve HYDROXYZINE HCL 25 MG ORAL TABLET 1 tab po at HS prn sleep 08/02 HYDROXYZINE HCL 67820037680 No Longer Active Tesfaye Shreman MD Active MIRAPEX 0.5 MG ORAL TABLET 1 tablet at night for restless leg. 2018 PRAMIPEXOLE DIHYDROCHLORIDE 15675278524 Active Laurenceyohana Dominguez Active MIRAPEX 0.25 MG ORAL TABLET 1 tablet by mouth at night for r estless leg PRAMIPEXOLE DIHYDROCHLORIDE 25435442614 No Longer Act trent Laurence Raida Active MIRAPEX 0.125 MG ORAL TABLET 1 po nightly PRAMIPEXOLE DIHYDROCHLORIDE 68764026649 No Longer Active Laurenceyohana Dominguez Active ROPINIROLE HCL 2 MG ORAL TABLET 1 po at hs ROPI NIROLE HCL 11283641981 No Longer Active Laurenceyohana Dominguez Active ROPINIROLE HCL 1 MG ORAL TABLET 1 tab po q hs ROPINIROLE HCL 88300015574 No Longer Active Laurence Dominguez Active ROPINIROLE HCL 0.5 MG ORAL TABLET 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 ROPINIROLE HCL 53924237804 No Longer Active MARCUS Panchal Active ROPINIROLE HCL 0.25 MG ORAL TABLET 1 TAB PO Q HS 05/31 ROPINIROLE HCL 72658869712 No Longer Active Tesfaye Sherman MD Ac tive PREDNISONE 20 MG ORAL TABLET 1 tab twice daily for 3 d ay, then one daily for three days PREDNISONE 45959312608 No Longer Active Tesfaye Sherman MD Active AMITRIPTYLINE HCL 50 MG ORAL TABLET 1 po q hs for sleep AMITRIPTYLINE HCL 62625975080 No Longer Active Tesfaye Sherman MD Active AMITRIPTYLINE HCL 10 MG ORAL TABLET 1 tablet nightly by mout h for neuropathy AMITRIPTYLINE HCL 64689030424 No Longer Active MARCUS Stapleton Active DIFLUCAN 100 MG ORAL TABLET 1 tablet by mouth daily 20 21/03/11 FLUCONAZOLE 98791387531 No Longer Active Tesfaye Sherman MD Acti ve BACTRIM DS 800-160 MG ORAL TABLET 1 tab by mouth twice daily 201 07/08/06 TRIMETHOPRIM-SULFAMETHOXAZOLE 78380010090 No Longer Active D patricia Sherman MD Active CLARITIN 10 MG ORAL TABLET Take one by mouth daily LORATADINE 08841744206 Active Tesfaye Sherman MD Active SUDAFED 12 HOUR 120 MG ORAL TABLET EXTENDED RELEASE 12 HOUR 1 pill twice daily if needed for congestion PSEUDOEPHEDRINE HCL 272835685 13 No Longer Active Tesfaye Sherman MD Active FENOFIBRATE 145 MG ORAL TABLET 1 by mouth daily FENOFIBRATE 62135009357 Active Laurence Dominguez Active GABAPENTIN 300 MG ORAL CAPSULE 1 po daily GABAP ENTIN 71072334167 No Longer Active Tesfaye Sherman MD Active HYDROCHLOROTHIAZIDE 12.5 MG ORAL CAPSULE 1 pill by mough daily 2 HYDROCHLOROTHIAZIDE 03537197448 No Longer Active León Mariee APRN Active VENLAFAXINE HCL 75 MG ORAL TABLET 1 am 1/2 at noon 201 07/07/09 VENLAFAXINE HCL 92795887462 No Longer Active León Mariee APRN Act trent DIFLUCAN 100 MG ORAL TABLET 1 tablet by mouth daily 20 19/02/09 FLUCONAZOLE 68558011818 No Longer Active León Kodi OFFICE MACHINE 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 Use sparingly OXYCODONE-ACETAMINOPHEN 52881313705 Active Tesfaye villar MD Active CLONAZEPAM 0.5 MG ORAL TABLET Take 1/2 qam, and 1/2 qpm CLONAZEPAM 80855376863 Active Tesfaye Sherman MD Active PRELIEF 340 (65-50) MG (CA-P) ORAL TABLET CALCIUM GLYCEROPHOSPHATE 50092619742 No Longer Active Tesfaye Sherman MD Active SUDAFED 24 HOUR 240 MG ORAL TABLET EXTENDED RELEASE 24 HOUR 1 tab po daily PSEUDOEPHEDRINE HCL 80980824630 No Longer Active Raul yanet Sherman MD Active RED YEAST RICE 600 MG ORAL CAPSULE 1 pill by mouth daily RED YEAST RICE EXTRACT 02324322349 No Longer Active Tesfaye Sherman MD Active REPHRESH PRO-B ORAL CAPSULE 1 tablet daily LACT OBACILLUS 67188515863 No Longer Active Tesfaye Sherman MD Active ABILIFY 2 MG ORAL TABLET 1 by mouth daily. MARIA ELENA PIPRAZOLE 67676977626 Active Tesfaye Sherman MD Active CYMBALTA 60 MG ORAL CAPSULE DELAYED RELEASE PARTICLES 1 cap by mouth daily for pain DULOXETINE HCL 07949342396 Active MARCUS Lindsay Active DIFLUCAN 100 MG ORAL TABLET 1 tablet by mouth daily 20 20/06/06 FLUCONAZOLE 97355547507 No Longer Active Tesfaye Sherman MD Acti ve PREDNISONE 20 MG ORAL TABLET 1 tablet by mouth twice d aily for 3 days, then 1 tablet daily for 3 days PREDNISONE 13714027324 No L onger Active Tesfaye Sherman MD Active BACTRIM DS 800-160 MG ORAL TABLET 1 tab by mouth twice daily 201 06/09/02 TRIMETHOPRIM-SULFAMETHOXAZOLE 17765432108 No Longer Active Fer mastersa Angelica Active DIFLUCAN 100 MG ORAL TABLET 1 tablet by mouth daily 20 20/05/01 FLUCONAZOLE 65825229275 No Longer Active Tesfaye Sherman MD Acti ve ZITHROMAX 250 MG ORAL TABLET 2 po today, then 1 po q days 2-5 20 20/04/28 AZITHROMYCIN 02387650343 No Longer Active Tesfaye Sherman MD Active MECLIZINE HCL 25 MG ORAL TABLET one tab po qday prn dizziness 20 17/09/06 MECLIZINE HCL 34140044266 No Longer Active Tesfaye Sherman MD Active PROAIR HFA 108 (90 BASE) MCG/ACT INHALATION AEROSOL SO LUTION 1 puff every 6 hours as needed ALBUTEROL SULFATE 90145043309 No Long er Active Tesfaye Sherman MD Active PREDNISONE 20 MG ORAL TABLET 1 tab twice daily for 3 d ay, then one daily for three days PREDNISONE 98291053853 No Longer Active Tesfaye Sherman MD Active MECLIZINE HCL 25 MG ORAL TABLET one 4 times a day as needed for dizziness MECLIZINE HCL 98306038983 Active Tesfaye Sherman MD Active AMOXICILLIN 500 MG ORAL CAPSULE 1 cap by mouth three times a day AMOXICILLIN 33952371001 No Longer Active Laurence Angelica Acti ve DIFLUCAN 100 MG ORAL TABLET 1 tablet by mouth daily 20 19/08/26 FLUCONAZOLE 71300502494 No Longer Active Tesfaye Sherman MD Acti ve BACTRIM DS 800-160 MG ORAL TABLET 1 tab by mouth twice daily 201 05/10/28 TRIMETHOPRIM-SULFAMETHOXAZOLE 18030725975 No Longer Active A mirna Dominguez Active FOSAMAX 70 MG ORAL TABLET 1 po qweek. Take 30min prio r to first food/drink. Avoid lying down x 1 hour. ALENDRONATE SODIUM 45049836 144 No Longer Active Laurence Dominguez Active CYMBALTA 60 MG ORAL CAPSULE DELAYED RELEASE PARTICLES Take 1 tablet by mouth daily DULOXETINE HCL 08519882624 No Longer Active Edith Burch MD Active CYMBALTA 30 MG ORAL CAPSULE DELAYED RELEASE PARTICLES 1 cap by mouth daily with 60mg DULOXETINE HCL 91922531966 No Longer Active Jordan Burch MD Active DIFLUCAN 100 MG ORAL TABLET 1 tablet by mouth daily 19/03/05 FLUCONAZOLE 40769963284 No Longer Active Tesfaye Sherman MD Acti ve BACTRIM DS 800-160 MG ORAL TABLET 1 tab by mouth twice daily 201 05/06/28 TRIMETHOPRIM-SULFAMETHOXAZOLE 25653786622 No Longer Active Yanet Sherman MD Active BACTRIM DS 800-160 MG ORAL TABLET 1 tab by mouth twice daily 201 05/04/15 TRIMETHOPRIM-SULFAMETHOXAZOLE 23763152287 No Longer Active Yanet Sherman MD Active DIFLUCAN 150 MG ORAL TABLET 1 tablet by mouth daily 20 18/09/20 FLUCONAZOLE 08437080612 No Longer Active Tesfaye Sherman MD Acti ve BACTRIM DS 800-160 MG ORAL TABLET 1 tab by mouth twice daily 201 04/13/17 TRIMETHOPRIM-SULFAMETHOXAZOLE 85875487450 No Longer Active Yanet Sherman MD Active CEFTIN 250 MG ORAL TABLET 1 tablet twice daily x 7 days CEFUROXIME AXETIL 09695083067 No Longer Active Tesfaye Sherman MD Active DIFLUCAN 100 MG ORAL TABLET 1 tablet by mouth every other da y for 2 doses FLUCONAZOLE 85324272449 No Longer Active Tesfaye barron MD Active DIFLUCAN 100 MG ORAL TABLET 1 tablet by mouth daily X 3 DAYS 201 04/09/01 FLUCONAZOLE 55775434807 No Longer Active Rj Moss DO Ac tive MIRTAZAPINE 15 MG ORAL TABLET 1/2 tab by mouth at bedtime. 03/13 MIRTAZAPINE 19725683292 No Longer Active Tesfaye Sherman MD Active BACTRIM DS 800-160 MG ORAL TABLET 1 tab by mouth twice daily 201 04/09/01 TRIMETHOPRIM-SULFAMETHOXAZOLE 30955079381 No Longer Active Yanet Sherman MD Active PRAMIPEXOLE DIHYDROCHLORIDE 0.125 MG ORAL TABLET take 1 tablet po qhs for restless leg syndrome. PRAMIPEXOLE DIHYDROCHLORI DE 60643843489 No Longer Active Tesfaye Sherman MD Active MAGNESIUM 400 MG ORAL TABLET 1 tab po daily MAGNE SIUM 90470571374 Active Chelsea Cardenas APRN Active CETIRIZINE HCL 5 MG ORAL TABLET Take 1 tablet by mouth daily CETIRIZINE HCL 71279963259 No Longer Active Chelsea Cardenas APRN Activ e TRIMETHOPRIM 100 MG ORAL TABLET 1/2 qd TRIM ETHOPRIM 33818270590 No Longer Active Chelsea Cardenas APRN Active BACTRIM DS 800-160 MG ORAL TABLET 1 tab by mouth twice daily 201 04/04/11 TRIMETHOPRIM-SULFAMETHOXAZOLE 24003058849 No Longer Active Yanet Sherman MD Active BACTRIM DS 800-160 MG ORAL TABLET 1 tab by mouth twice daily X 10 DAYS TRIMETHOPRIM-SULFAMETHOXAZOLE 80222806177 No Longer Active Tesfaye Sherman MD Active AMOXICILLIN 500 MG ORAL CAPSULE 1 cap by mouth three times a day AMOXICILLIN 55401444636 No Longer Active Adriana Arredondo, MARCUS A ctive B-12 1000 MCG ORAL LOZENGE 1 tab po daily CYANO COBALAMIN 07543917863 Active Tesfaye Sherman MD Active VITAMIN D3 2000 UNIT ORAL TABLET 1 daily, for vitamin D deficien cy CHOLECALCIFEROL 31144657965 No Longer Active Tesfaye Sherman MD Active ZITHROMAX 250 MG ORAL TABLET 2 po today, then 1 po q days 2-5 20 15/02/10 AZITHROMYCIN 84348811683 No Longer Active Tesfaye Sherman MD Active BACTRIM DS 800-160 MG ORAL TABLET 1 tab by mouth twice daily 201 03/03/23 TRIMETHOPRIM-SULFAMETHOXAZOLE 24178492978 No Longer Active Yanet Sherman MD Active DIFLUCAN 150 MG ORAL TABLET 1 qd FLUCONAZOL E 40765555516 No Longer Active Kayla Cooper MD Active FLUTICASONE PROPIONATE 50 MCG/ACT NASAL SUSPENSION 1 spray each nostril twice daily FLUTICASONE PROPIONATE 75546934712 Active Yanet Sherman MD Active LOVASTATIN 20 MG ORAL TABLET Take 1 tablet by mouth daily LOVASTATIN 26897399644 No Longer Active Tesfaye Sherman MD Acti ve MELOXICAM 7.5 MG ORAL TABLET 1 tablet by mouth daily 2 MELOXICAM 38487183259 No Longer Active Tesfaye Sherman MD Acti ve GABAPENTIN 300 MG ORAL CAPSULE Take two tablets by mouth every e vening GABAPENTIN 11654684267 No Longer Active Edith Burch MD A ctive GABAPENTIN 300 MG ORAL CAPSULE Take two tablets by mouth every e vening GABAPENTIN 300 MG ORAL CAPSULE 777004 GABAPENTIN I nactive MELOXICAM 7.5 MG ORAL TABLET 1 tablet by mouth daily 2 MELOXICAM 7.5 MG ORAL TABLET 511121 MELOXICAM Inactive LOVASTATIN 20 MG ORAL TABLET Take 1 tablet by mouth daily LOVASTATIN 20 MG ORAL TABLET 427075 LOVASTATIN Inactive DIFLUCAN 150 MG ORAL TABLET 1 qd DIFLUCAN 150 MG ORAL TABLET 498450 FLUCONAZOLE Inactive VITAMIN D3 2000 UNIT ORAL TABLET 1 daily, for vitamin D deficien cy VITAMIN D3 2000 UNIT ORAL TABLET CHOLECALCIFEROL Inactive AMOXICILLIN 500 MG ORAL CAPSULE 1 cap by mouth three times a day AMOXICILLIN 500 MG ORAL CAPSULE 586970 AMOXICILLIN Inactive BACTRIM DS 800-160 MG ORAL TABLET 1 tab by mouth twice daily X 10 DAYS BACTRIM DS 800-160 MG ORAL TABLET 402692 TRIMETHOPRIM-SULFAMETHOXAZOLE Inactive TRIMETHOPRIM 100 MG ORAL TABLET 1/2 qd 7 TRIMETHOPRIM 100 MG ORAL TABLET 385421 TRIMETHOPRIM Inactive CETIRIZINE HCL 5 MG ORAL TABLET Take 1 tablet by mouth daily CETIRIZINE HCL 5 MG ORAL TABLET 0337275 CETIRIZINE HCL Inactive PRAMIPEXOLE DIHYDROCHLORIDE 0.125 MG ORAL TABLET take 1 tablet po qhs for restless leg syndrome. PRAMIPEXOLE DIHYD ROCHLORIDE 0.125 MG ORAL TABLET 501537 PRAMIPEXOLE DIHYDROCHLORIDE Inactive MIRTAZAPINE 15 MG ORAL TABLET 1/2 tab by mouth at bedtime. 03/13 MIRTAZAPINE 15 MG ORAL TABLET 580041 MIRTAZAPINE In active DIFLUCAN 100 MG ORAL TABLET 1 tablet by mouth daily X 3 DAYS 201 04/09/01 DIFLUCAN 100 MG ORAL TABLET 278681 FLUCONAZOLE Inac tive DIFLUCAN 100 MG ORAL TABLET 1 tablet by mouth every other da y for 2 doses DIFLUCAN 100 MG ORAL TABLET 222100 FLUCONAZOLE Inactive CEFTIN 250 MG ORAL TABLET 1 tablet twice daily x 7 days CEFTIN 250 MG ORAL TABLET CEFUROXIME AXETIL Inactive CYMBALTA 30 MG ORAL CAPSULE DELAYED RELEASE PARTICLES 1 cap by mouth daily with 60mg CYMBALTA 30 MG ORAL CAPSULE DELAYED RELEASE PARTICLES 353352 DULOXETINE HCL Inactive CYMBALTA 60 MG ORAL CAPSULE DELAYED RELEASE PARTICLES Take 1 tablet by mouth daily CYMBALTA 60 MG ORAL CAPSULE DELAYED RELEA SE PARTICLES 466170 DULOXETINE HCL Inactive FOSAMAX 70 MG ORAL TABLET 1 po qweek. Take 30min prio r to first food/drink. Avoid lying down x 1 hour. FOSAMAX 70 MG ORAL TA BLET 122611 ALENDRONATE SODIUM Inactive DIFLUCAN 100 MG ORAL TABLET 1 tablet by mouth daily 20 19/08/26 DIFLUCAN 100 MG ORAL TABLET 19760711 FLUCONAZOLE Inactive PREDNISONE 20 MG ORAL TABLET 1 tab twice daily for 3 d ay, then one daily for three days PREDNISONE 20 MG ORAL TABLET 255442 PREDNIS ONE Inactive PROAIR HFA 108 (90 BASE) MCG/ACT INHALATION AEROSOL SO LUTION 1 puff every 6 hours as needed PROAIR HFA 108 (90 B ASE) MCG/ACT INHALATION AEROSOL SOLUTION ALBUTEROL SULFATE Inactive MECLIZINE HCL 25 MG ORAL TABLET one tab po qday prn dizziness 20 17/09/06 MECLIZINE HCL 25 MG ORAL TABLET 119426 MECLIZINE HCL Inactive PREDNISONE 20 MG ORAL TABLET 1 tablet by mouth twice d aily for 3 days, then 1 tablet daily for 3 days PREDNISONE 20 MG ORAL TA BLET 600124 PREDNISONE Inactive DIFLUCAN 100 MG ORAL TABLET 1 tablet by mouth daily 20 20/06/06 DIFLUCAN 100 MG ORAL TABLET 19760711 FLUCONAZOLE Inactive REPHRESH PRO-B ORAL CAPSULE 1 tablet daily REPHRESH PRO-B ORAL CAPSULE LACTOBACILLUS Inactive RED YEAST RICE 600 MG ORAL CAPSULE 1 pill by mouth daily RED YEAST RICE 600 MG ORAL CAPSULE 431149 RED YEAST RICE EXTRACT In active SUDAFED [...] 20 19/02/09 DIFLUCAN 100 MG ORAL TABLET 773738 FLUCONAZOLE Inactive VENLAFAXINE HCL 75 MG ORAL TABLET 1 am 1/2 at noon 201 07/07/09 VENLAFAXINE HCL 75 MG ORAL TABLET 101973 VENLAFAXINE HCL Inacti ve GABAPENTIN 300 MG ORAL CAPSULE 1 po daily GABAPENTIN 300 MG ORAL CAPSULE 100199 GABAPENTIN Inactive SUDAFED 12 HOUR 120 MG ORAL TABLET EXTENDED RELEASE 12 HOUR 1 pill twice daily if needed for congestion SUDAFED 12 HOUR 120 MG ORAL TABLET EXTENDED RELEASE 12 HOUR PSEUDOEPHEDRINE HCL Inactive AMITRIPTYLINE HCL 10 MG ORAL TABLET 1 tablet nightly by mout h for neuropathy AMITRIPTYLINE HCL 10 MG ORAL TABLET 405830 AMITRIPTYLINE HCL Inactive AMITRIPTYLINE HCL 50 MG ORAL TABLET 1 po q hs for sleep AMITRIPTYLINE HCL 50 MG ORAL TABLET 778689 AMITRIPTYLINE HCL Inac tive PREDNISONE 20 MG ORAL TABLET 1 tab twice daily for 3 d ay, then one daily for three days PREDNISONE 20 MG ORAL TABLET 868929 PREDNIS ONE Inactive ROPINIROLE HCL 0.25 MG ORAL TABLET 1 TAB PO Q HS 05/31 ROPINIROLE HCL 0.25 MG ORAL TABLET 581927 ROPINIROLE HCL Inact trent ROPINIROLE HCL 0.5 MG ORAL TABLET 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 ROPINIROLE HCL 0.5 MG ORAL TABLET 254875 ROPINIR OLE HCL Inactive ROPINIROLE HCL 1 MG ORAL TABLET 1 tab po q hs ROPINIROLE HCL 1 MG ORAL TABLET 285515 ROPINIROLE HCL Inactive ROPINIROLE HCL 2 MG ORAL TABLET 1 po at hs 7 ROPINIROLE HCL 2 MG ORAL TABLET 611488 ROPINIROLE HCL Inactive MIRAPEX 0.125 MG ORAL TABLET 1 po nightly MIRAPEX 0.125 MG ORAL TABLET 292467 PRAMIPEXOLE DIHYDROCHLORIDE Inactive MIRAPEX 0.25 MG ORAL TABLET 1 tablet by mouth at night for r estless leg MIRAPEX 0.25 MG ORAL TABLET 242096 PRAM IPEXOLE DIHYDROCHLORIDE Inactive HYDROXYZINE HCL 25 MG ORAL TABLET 1 tab po at HS prn sleep 08/02 HYDROXYZINE HCL 25 MG ORAL TABLET 999802 HYDROXYZINE HC L Inactive DIFLUCAN 100 MG ORAL TABLET 1 tablet by mouth daily 20 21/08/28 DIFLUCAN 100 MG ORAL TABLET 521356 FLUCONAZOLE Inactive BACLOFEN 10 MG ORAL TABLET Take one tablet by mouth three times a day BACLOFEN 10 MG ORAL TABLET 304798 BACLOFEN Inact trent PREDNISONE 20 MG ORAL TABLET 1 tab twice daily for 3 d ay, then one daily for three days PREDNISONE 20 MG ORAL TABLET 221592 PREDNIS ONE Inactive UNISOM SLEEPMELTS 25 MG [...] 03/03/23 BACTRIM DS 800-160 MG ORAL TABLET 690487 TRIMETHOPRIM-SULFAMETHOXAZOLE Inactive ZITHROMAX 250 MG ORAL TABLET 2 po today, then 1 po q days 2-5 20 15/02/10 ZITHROMAX 250 MG ORAL TABLET 158370 AZITHROMYCIN Mayela ctive BACTRIM DS 800-160 MG ORAL TABLET 1 tab by mouth twice daily 201 04/04/11 BACTRIM DS 800-160 MG ORAL TABLET 789185 TRIMETHOPRIM-SULFAMETHOXAZOLE Inactive BACTRIM DS 800-160 MG ORAL [...] a day AMOXICILLIN 500 MG ORAL CAPSULE 658670 AMOXICILLIN Inactive ZITHROMAX 250 MG ORAL TABLET 2 po today, then 1 po q days 2-5 20 20/04/28 ZITHROMAX 250 MG ORAL TABLET 030024 AZITHROMYCIN [place] ctive DIFLUCAN 100 MG ORAL TABLET 1 [...] 9/05/06 BACTRIM DS 800-160 MG ORAL TABLET 639794 TRIMETHOPRIM-SULFAMETHOXAZOLE Inactive DIFLUCAN 100 MG ORAL TABLET 1 tablet by mouth daily 21/03/11 DIFLUCAN 100 MG ORAL TABLET 19760711 FLUCONAZOLE Inactive ZITHROMAX 250 MG ORAL TABLET 2 po today, then 1 po q days 2-5 20 21/08/28 ZITHROMAX 250 MG ORAL TABLET 806081 AZITHROMYCIN Mayela ctive FLUCONAZOLE 100 MG ORAL [...] LIVING WILL ON FILE DURABLE POWER OF SAMPLER FIRST FOR HEALTHCARE Vital Signs Date Name Value [...] Magnesium - Chemistry cholesterol, serum 196 mg/dL 633-252 2561/07/30 triglyceride, serum, fasting 86 mg/dL 30-200 HDL cholesterol, serum 41 mg/dL 32-60 LDL cholesterol, serum 138 mg/dL 0-130 sodium, serum 140 mmol/L 741-206 1179/07/30 carbon dioxide, venous blood 28.6 mmol/L 21.0-32 [...] 5.0-8.5 Encounters Code Encounter Date Provider Facility CPT-03540 [id number] Vst-Est Level IV 10:36:10 C BRIDGET Sherman MD [facility]-21913 [id number] Vst-Est Level IV 13:49:08 [facility] [id number] Vst-Est Level IV 11:39:[address] Tesfaye Sherman MD [facility]-55294 [id number] Vst-Est Level IV 14:08:03 C BRIDGET Sherman MD [facility]-71854 Level 3 Est. Patient 18:06:36 CDT Tesfaye pearson MD [facility]-15566 [id number] Vst-Est Level IV 17:09:34 C BRIDGET Sherman MD [facility]-27045 Level 3 Est. 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 Patient 22:18:12 CDT Tesfaye pearson MD [facility]-52411 Level 4 Est. Patient 14:44:33 TACKING STITCH REMOVER Tesfaye pearosn MD [facility]-87834 Level 4 Est. Patient 13:55:29 TACKING STITCH REMOVER Tesfaye pearson MD [facility]-90489 Level 4 Est. Patient 17:07:34 TACKING STITCH REMOVER Tesfaye pearson MD [facility]-19584 Level 4 Est. Patient 13:56:54 CDT Tesfaye pearson MD [facility]-18095 Level 4 Est. Patient 13:24:25 CDT Chelsea sanz APRN [facility] CPT-50615 Level 4 Est. Patient 09:14:56 CDT Tesfaye pearson MD [facility]-27429 Level 4 Est. Patient 18:40:25 TACKING STITCH REMOVER Tesfaye pearson MD [facility]-64368 Level 4 Est. Patient 18:13:07 TACKING STITCH REMOVER Tesfaye pearson MD [facility]-50057 Level 3 Est. Patient 10:46:32 CDT jR cotto DO [facility] CPT-39951 Level 4 Est. Patient 20:19:25 CDT Tesfaye pearson MD [facility]-55283 Level 3 Est. Patient 09:07:31 CDT Tesfaye pearson MD [facility]-16474 Level 4 Est. Patient 13:12:56 CDT Tesfaye pearson MD [facility]-85002 Level 4 Est. Patient 21:24:55 TACKING STITCH REMOVER Tesfaye pearson MD [facility] CPT-04970 Level 3 Est. Patient 13:45:04 TACKING STITCH REMOVER Tesfaye pearson MD [facility] CPT-87860 Level 4 Est. Patient 13:50:45 CDT Tesfaye pearson MD [facility] CPT-28161 Level 3 Est. Patient 10:16:10 CDT Tesfaye pearson MD [facility] CPT-92366 Level 3 Est. Patient 16:36:07 TACKING STITCH REMOVER Kayla jameson MD [facility] CPT-60906 Level 4 Est. Patient 16:00:14 TACKING STITCH REMOVER Tesfaye pearson MD [facility]-54163 Level 4 Est. Patient 11:02:24 TACKING STITCH REMOVER Tesfaye pearson MD [facility] CPT-90913 Level 3 Est. Patient 20:21:43 TACKING STITCH REMOVER Kayla jameson MD [facility] CPT-72797 Level 3 Est. Patient 13:27:28 TACKING STITCH REMOVER Kayla jameson MD [facility] CPT-30887 Level 4 Est. Patient 15:57:17 TACKING STITCH REMOVER Tesfaye pearson MD [facility] CPT-81845 Level 3 New Patient 13:25:47 CDT Tesfaye kidd MD [facility] CPT-98956 Level 3 New Patient 17:22:21 CDT Kayla angel MD [facility] Procedures Code Procedure Name Date Entry Date Standard Desc ription CPT-24713 Prv Med Est Pt 40-64yrs 09:01:58 CDT 03/09 CPT-G0439 [facility] Annual Wellness Exam 11:25:51 CDT [id number] ([id number] 2P) Patient Reason Influenza immu nization not administered 13:25:19 TACKING STITCH REMOVER CPT-41905 Bone Density - XRAY USE ONLY 15:21:33 CDT 2 CPT-90856 Venipuncture Draw Fee 16:12:22 CDT CPT-G0439 Subsequent Annual Wellness Exam 18:06:36 CDT CPT-G0439 Subsequent Annual Wellness Exam 22:18:11 CDT CPT-35085 Bone Density - XRAY USE ONLY 11:43:58 CDT 2 CPT-56485 Bone Density - XRAY USE ONLY 10:05:16 CDT 2 CPT-56661 Prv Med New Pt 40-64 yrs 18:19:25 CDT 2016 CPT-34212 Foot, right, comp min 3V - XRAY USE ONLY 10:38:34 CDT CPT-G0439 Subsequent Annual Wellness Exam 13:55:04 CDT CPT-G0438 Initial Annual Wellness Exam 11:23:17 CD T CPT-J2930 Solu Medrol 125 mg (Methyl Prednisolone Sodium Succinate) 17:29:12 TACKING STITCH REMOVER CPT-42413 Abx/Therapy Injection 17:29:11 TACKING STITCH REMOVER CPT-J2930 Solu Medrol 125 mg (Methyl Prednisolone Sodium Succinate) 12:34:38 [employer]ING [employer] CPT-J3420 Vitamin B12 1000mcg (Cyanocobalamin) 09:12:55 CDT CPT-J3420 Vitamin B12 1000mcg (Cyanocobalamin) 16:28:06 [employer]ACKING [employer]ITCH [employer] CPT-20577 Venipuncture Draw Fee 08:39:53 CDT CPT-J3420 Vitamin B12 1000mcg (Cyanocobalamin) 08:46:22 CDT CPT-83628 Abx/Therapy Injection 08:46:22 CDT CPT-J3420 Vitamin B12 1000mcg (Cyanocobalamin) 08:41:26 CDT CPT-06100 Abx/Therapy Injection 08:41:26 CDT CPT-J3420 Vitamin B12 1000mcg (Cyanocobalamin) 08:57:15 CDT CPT-99931 Abx/Therapy Injection 08:57:15 CDT CPT-J3420 Vitamin B12 1000mcg (Cyanocobalamin) 10:59:03 CDT CPT-29698 Abx/Therapy Injection 10:59:03 CDT CPT-J3420 Vitamin B12 1000mcg (Cyanocobalamin) 15:05:39 CDT CPT-11958 Abx/Therapy Injection 15:05:39 CDT CPT-J3420 Vitamin B12 1000mcg (Cyanocobalamin) 13:50:45 CDT CPT-J3420 Vitamin B12 1000mcg (Cyanocobalamin) 08:48:55 CDT CPT-26339 Abx/Therapy Injection 08:48:55 CDT CPT-J3420 Vitamin B12 1000mcg (Cyanocobalamin) 09:14:54 CDT CPT-39500 Abx/Therapy Injection 09:14:54 CDT CPT-J3420 Vitamin B12 1000mcg (Cyanocobalamin) 09:06:06 CDT CPT-70662 Abx/Therapy Injection 09:06:06 CDT CPT-J3420 Vitamin B12 1000mcg (Cyanocobalamin) 09:49:14 CDT CPT-46090 Abx/Therapy Injection 09:49:14 CDT CPT-J3420 Vitamin B12 1000mcg (Cyanocobalamin) 09:10:30 TACKING STITCH REMOVER CPT-28491 Abx/Therapy Injection 09:10:30 TACKING STITCH REMOVER CPT-J3420 Vitamin B12 1000mcg (Cyanocobalamin) 09:11:07 TACKING STITCH REMOVER CPT-43050 Abx/Therapy Injection 09:11:07 TACKING STITCH REMOVER CPT-J3420 Vitamin B12 1000mcg (Cyanocobalamin) 09:57:03 TACKING STITCH REMOVER CPT-05281 Abx/Therapy Injection 09:57:03 TACKING STITCH REMOVER CPT-J3420 Vitamin B12 1000mcg (Cyanocobalamin) 09:23:21 TACKING STITCH REMOVER CPT-49635 Abx/Therapy Injection 09:23:21 TACKING STITCH REMOVER CPT-41298 Urine Dip (Floor Use Only) 20:21:44 TACKING STITCH REMOVER 201 02/12/11 CPT-85010 UA Dip Auto (Floor Use Only) 10:04:39 TACKING STITCH REMOVER 2 CPT-42429 Urine Dip (Floor Use Only) 13:27:28 TACKING STITCH REMOVER 201 02/12/01 CPT-28983 Bladder Scan 13:27:28 TACKING [employer]ITCH REMOVER CPT-73963 Abd single AP View 14:30:51 TACKING [employer]ITCH REMOVER CPT-OV Office Visit 10:15:43 CDT CPT-70808 Urine Dip (Floor Use Only) 17:22:21 CDT 201 02/09/02 CPT-12646 Bladder Scan 17:22:21 CDT
--- OUTSIDE RECORDS SUMMARY | 2020-05-05 12:04 | XMS REPORT | Clinical Summary ---
Author Author Talon, Jeri Wood Organization [employer] Address Unknown Phone Unavailable Allergies, Adverse Reactions, [...] Routine general medical examination at [facility] acility Sinusitis 461.9 Resolved Tesfaye [...] bilateral 782.3 Active 201 07/07/09 León Kodi [employer] Edema Peripheral neuropathy 356.9 Active Tesfaye lamb [...] qhs for restless leg syndrome. PRAMIPEXOLE DIHYDROCHLORIDE [id number] Acti ve Tesfaye Sherman MD Active DIFLUCAN 100 MG ORAL TABLET 1 tablet by mouth daily 20 23/12/05 FLUCONAZOLE 03721536530 No Longer Active Tesfaye Sherman MD Acti ve [facility] NIACIN FLUSH FREE 400-100 MG ORAL CAPSULE 1 daily NIACIN-INOSITOL 16249834084 No Longer Active Tesfaye Sherman MD A ctive FISH OIL 1000 MG ORAL CAPSULE DELAYED RELEASE 1 pill b y mouth daily for cholesterol OMEGA-3 FATTY ACIDS 98074933815 No Longe r Active Tesfaye Sherman MD Active UNISOM SLEEPMELTS 25 MG ORAL TABLET DISINTEGRATING 1.5 po q hs DIPHENHYDRAMINE HCL (SLEEP) 74403450373 No Longer Active Venkata Sherman MD Active PREDNISONE 20 MG ORAL TABLET 1 tab twice daily for 3 d ay, then one daily for three days PREDNISONE 56510099020 No Longer Active Tesfaye Sherman MD Active BACLOFEN 10 MG ORAL TABLET Take one tablet by mouth three times a day BACLOFEN 16259099188 No Longer Active Tesfaye Sherman MD Active LIDOCAINE 4 % EXTERNAL CREAM Apply to back prn pain LIDOCAINE 91511462459 Active Tesfaye Sherman MD Active TIZANIDINE HCL 2 MG ORAL TABLET 2 Mg in the AM and 6mg q hs 07/05 TIZANIDINE HCL 30670791505 Active Tesfaye Sherman MD Active HYDROXYZINE HCL 25 MG TABS TAKE 1 TABLET BY MOUTH AT B EDTIME NEEDED FOR SLEEP HYDROXYZINE HCL 53293061938 Active JOSHUA Lindsay Active FLUCONAZOLE 100 MG ORAL TABLET 1 by mouth daily for yeast infect ion FLUCONAZOLE 88637226081 No Longer Active Laurence Dominguez Acti ve ZITHROMAX 250 MG ORAL TABLET 2 po today, then 1 po q days 2-5 20 21/08/28 AZITHROMYCIN 30241397540 No Longer Active Tesfaye Sherman MD Active DIFLUCAN 100 MG ORAL TABLET 1 tablet by mouth daily 20 21/08/28 FLUCONAZOLE 42639286071 No Longer Active Tesfaye Sherman MD Acti ve HYDROXYZINE HCL 25 MG ORAL TABLET 1 tab po at HS prn sleep 08/02 HYDROXYZINE HCL 51928761817 No Longer Active Tesfaye Sherman MD Active MIRAPEX 0.5 MG ORAL TABLET 1 tablet at night for restless leg. 2018 PRAMIPEXOLE DIHYDROCHLORIDE 71873555572 Active Laurenceyohana Dominguez Active MIRAPEX 0.25 MG ORAL TABLET 1 tablet by mouth at night for r estless leg PRAMIPEXOLE DIHYDROCHLORIDE 22822399338 No Longer Act trent Laurence Raida Active MIRAPEX 0.125 MG ORAL TABLET 1 po nightly PRAMIPEXOLE DIHYDROCHLORIDE 96262530972 No Longer Active Laurenceyohana Dominguez Active ROPINIROLE HCL 2 MG ORAL TABLET 1 po at hs ROPI NIROLE HCL 29091841782 No Longer Active Laurenceyohana Dominguez Active ROPINIROLE HCL 1 MG ORAL TABLET 1 tab po q hs ROPINIROLE HCL 38889954008 No Longer Active Laurence Dominguez Active ROPINIROLE HCL 0.5 MG ORAL TABLET 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 ROPINIROLE HCL 91442937978 No Longer Active MARCUS Panchal Active ROPINIROLE HCL 0.25 MG ORAL TABLET 1 TAB PO Q HS 05/31 ROPINIROLE HCL 45742634725 No Longer Active Tesfaye Sherman MD Ac tive PREDNISONE 20 MG ORAL TABLET 1 tab twice daily for 3 d ay, then one daily for three days PREDNISONE 36186017087 No Longer Active Tesfaye Sherman MD Active AMITRIPTYLINE HCL 50 MG ORAL TABLET 1 po q hs for sleep AMITRIPTYLINE HCL 06816836176 No Longer Active Tesfaye Sherman MD Active AMITRIPTYLINE HCL 10 MG ORAL TABLET 1 tablet nightly by mout h for neuropathy AMITRIPTYLINE HCL 35427975587 No Longer Active MARCUS Stapleton Active DIFLUCAN 100 MG ORAL TABLET 1 tablet by mouth daily 20 21/03/11 FLUCONAZOLE 67159826622 No Longer Active Tesfaye Sherman MD Acti ve BACTRIM DS 800-160 MG ORAL TABLET 1 tab by mouth twice daily 201 07/08/06 TRIMETHOPRIM-SULFAMETHOXAZOLE 32119132292 No Longer Active D patricia Sherman MD Active CLARITIN 10 MG ORAL TABLET Take one by mouth daily LORATADINE 48796897491 Active Tesfaye Sherman MD Active SUDAFED 12 HOUR 120 MG ORAL TABLET EXTENDED RELEASE 12 HOUR 1 pill twice daily if needed for congestion PSEUDOEPHEDRINE HCL 045565691 13 No Longer Active Tesfaye Sherman MD Active FENOFIBRATE 145 MG ORAL TABLET 1 by mouth daily FENOFIBRATE 27155772711 Active Laurence Dominguez Active GABAPENTIN 300 MG ORAL CAPSULE 1 po daily GABAP ENTIN 08501867576 No Longer Active Tesfaye Sherman MD Active HYDROCHLOROTHIAZIDE 12.5 MG ORAL CAPSULE 1 pill by mough daily 2 HYDROCHLOROTHIAZIDE 16869736230 No Longer Active León Mariee APRN Active VENLAFAXINE HCL 75 MG ORAL TABLET 1 am 1/2 at noon 201 07/07/09 VENLAFAXINE HCL 46461721294 No Longer Active León Mariee APRN Act trent DIFLUCAN 100 MG ORAL TABLET 1 tablet by mouth daily 20 19/02/09 FLUCONAZOLE 12086167760 No Longer Active León Kodi [employer] Active DIFLUCAN 100 MG ORAL TABLET 1 tablet by mouth daily 20 19/02/09 FLUCONAZOLE 27856268866 No Longer Active León Mariee APRN Active OXYCODONE-ACETAMINOPHEN 5-325 MG ORAL TABLET Take one tablet by mouth every 6 hours 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 Use sparingly OXYCODONE-ACETAMINOPHEN 81475920468 Active Tesfaye villar MD Active CLONAZEPAM 0.5 MG ORAL TABLET Take 1/2 qam, and 1/2 qpm CLONAZEPAM 18401507064 Active Tesfaye Sherman MD Active PRELIEF 340 (65-50) MG (CA-P) ORAL TABLET CALCIUM GLYCEROPHOSPHATE 06874858966 No Longer Active Tesfaye Sherman MD Active SUDAFED 24 HOUR 240 MG ORAL TABLET EXTENDED RELEASE 24 HOUR 1 tab po daily PSEUDOEPHEDRINE HCL 12853052665 No Longer Active Raul yanet Sherman MD Active RED YEAST RICE 600 MG ORAL CAPSULE 1 pill by mouth daily RED YEAST RICE EXTRACT 63993723936 No Longer Active Tesfaye Sherman MD Active REPHRESH PRO-B ORAL CAPSULE 1 tablet daily LACT OBACILLUS 43701312007 No Longer Active Tesfaye Sherman MD Active ABILIFY 2 MG ORAL TABLET 1 by mouth daily. MARIA ELENA PIPRAZOLE 89885212767 Active Tesfaye Sherman MD Active CYMBALTA 60 MG ORAL CAPSULE DELAYED RELEASE PARTICLES 1 cap by mouth daily for pain DULOXETINE HCL 31390377474 Active MARCUS Lindsay Active DIFLUCAN 100 MG ORAL TABLET 1 tablet by mouth daily 20 20/06/06 FLUCONAZOLE 96319569819 No Longer Active Tesfaye Sherman MD Acti ve PREDNISONE 20 MG ORAL TABLET 1 tablet by mouth twice d aily for 3 days, then 1 tablet daily for 3 days PREDNISONE 06123273401 No L onger Active Tesfaye Sherman MD Active BACTRIM DS 800-160 MG ORAL TABLET 1 tab by mouth twice daily 201 06/09/02 TRIMETHOPRIM-SULFAMETHOXAZOLE 13942264915 No Longer Active Fer mastersa Angelica Active DIFLUCAN 100 MG ORAL TABLET 1 tablet by mouth daily 20 20/05/01 FLUCONAZOLE 59143195829 No Longer Active Tesfaye Sherman MD Acti ve ZITHROMAX 250 MG ORAL TABLET 2 po today, then 1 po q days 2-5 20 20/04/28 AZITHROMYCIN 36587999378 No Longer Active Tesfaye Sherman MD Active MECLIZINE HCL 25 MG ORAL TABLET one tab po qday prn dizziness 20 17/09/06 MECLIZINE HCL 01331415456 No Longer Active Tesfaye Sherman MD Active PROAIR HFA 108 (90 BASE) MCG/ACT INHALATION AEROSOL SO LUTION 1 puff every 6 hours as needed ALBUTEROL SULFATE 28479584985 No Long er Active Tesfaye Sherman MD Active PREDNISONE 20 MG ORAL TABLET 1 tab twice daily for 3 d ay, then one daily for three days PREDNISONE 70473665113 No Longer Active Tesfaye Sherman MD Active MECLIZINE HCL 25 MG ORAL TABLET one 4 times a day as needed for dizziness MECLIZINE HCL 52638690300 Active Tesfaye Sherman MD Active AMOXICILLIN 500 MG ORAL CAPSULE 1 cap by mouth three times a day AMOXICILLIN 11507985982 No Longer Active Laurence Angelica Acti ve DIFLUCAN 100 MG ORAL TABLET 1 tablet by mouth daily 20 19/08/26 FLUCONAZOLE 92664576433 No Longer Active Tesfaye Sherman MD Acti ve BACTRIM DS 800-160 MG ORAL TABLET 1 tab by mouth twice daily 201 05/10/28 TRIMETHOPRIM-SULFAMETHOXAZOLE 44121842404 No Longer Active A mirna Dominguez Active FOSAMAX 70 MG ORAL TABLET 1 po qweek. Take 30min prio r to first food/drink. Avoid lying down x 1 hour. ALENDRONATE SODIUM 14345693 144 No Longer Active Laurence Dominguez Active CYMBALTA 60 MG ORAL CAPSULE DELAYED RELEASE PARTICLES Take 1 tablet by mouth daily DULOXETINE HCL 35718748930 No Longer Active Edith Burch MD Active CYMBALTA 30 MG ORAL CAPSULE DELAYED RELEASE PARTICLES 1 cap by mouth daily with 60mg DULOXETINE HCL 82388585060 No Longer Active Jordan Burch MD Active DIFLUCAN 100 MG ORAL TABLET 1 tablet by mouth daily 19/03/05 FLUCONAZOLE 20704032213 No Longer Active Tesfaye Sherman MD Acti ve BACTRIM DS 800-160 MG ORAL TABLET 1 tab by mouth twice daily 201 05/06/28 TRIMETHOPRIM-SULFAMETHOXAZOLE 64812068107 No Longer Active Yanet Sherman MD Active BACTRIM DS 800-160 MG ORAL TABLET 1 tab by mouth twice daily 201 05/04/15 TRIMETHOPRIM-SULFAMETHOXAZOLE 39141516381 No Longer Active Yanet Sherman MD Active DIFLUCAN 150 MG ORAL TABLET 1 tablet by mouth daily 20 18/09/20 FLUCONAZOLE 88599554170 No Longer Active Tesfaye Sherman MD Acti ve BACTRIM DS 800-160 MG ORAL TABLET 1 tab by mouth twice daily 201 04/13/17 TRIMETHOPRIM-SULFAMETHOXAZOLE 29848617487 No Longer Active Yanet Sherman MD Active CEFTIN 250 MG ORAL TABLET 1 tablet twice daily x 7 days CEFUROXIME AXETIL 31908149018 No Longer Active Tesfaye Sherman MD Active DIFLUCAN 100 MG ORAL TABLET 1 tablet by mouth every other da y for 2 doses FLUCONAZOLE 80600600386 No Longer Active Tesfaye barron MD Active DIFLUCAN 100 MG ORAL TABLET 1 tablet by mouth daily X 3 DAYS 201 04/09/01 FLUCONAZOLE 72353488732 No Longer Active Rj Moss DO Ac tive MIRTAZAPINE 15 MG ORAL TABLET 1/2 tab by mouth at bedtime. 03/13 MIRTAZAPINE 91580488664 No Longer Active Tesfaye Sherman MD Active BACTRIM DS 800-160 MG ORAL TABLET 1 tab by mouth twice daily 201 04/09/01 TRIMETHOPRIM-SULFAMETHOXAZOLE 02055667768 No Longer Active Yanet Sherman MD Active PRAMIPEXOLE DIHYDROCHLORIDE 0.125 MG ORAL TABLET take 1 tablet po qhs for restless leg syndrome. PRAMIPEXOLE DIHYDROCHLORI DE 13293667036 No Longer Active Tesfaye Sherman MD Active MAGNESIUM 400 MG ORAL TABLET 1 tab po daily MAGNE SIUM 25117971936 Active Chelsea Cardenas APRN Active CETIRIZINE HCL 5 MG ORAL TABLET Take 1 tablet by mouth daily CETIRIZINE HCL 14875566346 No Longer Active Chelsea Cardenas APRN Activ e TRIMETHOPRIM 100 MG ORAL TABLET 1/2 qd TRIM ETHOPRIM 17499588310 No Longer Active Chelsea Cardenas APRN Active BACTRIM DS 800-160 MG ORAL TABLET 1 tab by mouth twice daily 201 04/04/11 TRIMETHOPRIM-SULFAMETHOXAZOLE 97309795808 No Longer Active Yanet Sherman MD Active BACTRIM DS 800-160 MG ORAL TABLET 1 tab by mouth twice daily X 10 DAYS TRIMETHOPRIM-SULFAMETHOXAZOLE 92335129886 No Longer Active Tesfaye Sherman MD Active AMOXICILLIN 500 MG ORAL CAPSULE 1 cap by mouth three times a day AMOXICILLIN 69585036486 No Longer Active Adriana Arredondo, MARCUS A ctive B-12 1000 MCG ORAL LOZENGE 1 tab po daily CYANO COBALAMIN 55012822774 Active Tesfaye Sherman MD Active VITAMIN D3 2000 UNIT ORAL TABLET 1 daily, for vitamin D deficien cy CHOLECALCIFEROL 81194257729 No Longer Active Tesfaye Sherman MD Active ZITHROMAX 250 MG ORAL TABLET 2 po today, then 1 po q days 2-5 20 15/02/10 AZITHROMYCIN 01723504749 No Longer Active Tesfaye Sherman MD Active BACTRIM DS 800-160 MG ORAL TABLET 1 tab by mouth twice daily 201 03/03/23 TRIMETHOPRIM-SULFAMETHOXAZOLE 39511925051 No Longer Active Yanet Sherman MD Active DIFLUCAN 150 MG ORAL TABLET 1 qd FLUCONAZOL E 40298050394 No Longer Active Kayla Cooper MD Active FLUTICASONE PROPIONATE 50 MCG/ACT NASAL SUSPENSION 1 spray each nostril twice daily FLUTICASONE PROPIONATE 40971642457 Active Yanet Sherman MD Active LOVASTATIN 20 MG ORAL TABLET Take 1 tablet by mouth daily LOVASTATIN 12330858275 No Longer Active Tesfaye Sherman MD Acti ve MELOXICAM 7.5 MG ORAL TABLET 1 tablet by mouth daily 2 MELOXICAM 65547885243 No Longer Active Tesfaye Sherman MD Acti ve GABAPENTIN 300 MG ORAL CAPSULE Take two tablets by mouth every e vening GABAPENTIN 18855837863 No Longer Active Edith Burch MD A ctive GABAPENTIN 300 MG ORAL CAPSULE Take two tablets by mouth every e vening GABAPENTIN 300 MG ORAL CAPSULE 211921 GABAPENTIN I nactive MELOXICAM 7.5 MG ORAL TABLET 1 tablet by mouth daily 2 MELOXICAM 7.5 MG ORAL TABLET 925995 MELOXICAM Inactive LOVASTATIN 20 MG ORAL TABLET Take 1 tablet by mouth daily LOVASTATIN 20 MG ORAL TABLET 005342 LOVASTATIN Inactive DIFLUCAN 150 MG ORAL TABLET 1 qd DIFLUCAN 150 MG ORAL TABLET 021169 FLUCONAZOLE Inactive VITAMIN D3 2000 UNIT ORAL TABLET 1 daily, for vitamin D deficien cy VITAMIN D3 2000 UNIT ORAL TABLET CHOLECALCIFEROL Inactive AMOXICILLIN 500 MG ORAL CAPSULE 1 cap by mouth three times a day AMOXICILLIN 500 MG ORAL CAPSULE 795196 AMOXICILLIN Inactive BACTRIM DS 800-160 MG ORAL TABLET 1 tab by mouth twice daily X 10 DAYS BACTRIM DS 800-160 MG ORAL TABLET 550502 TRIMETHOPRIM-SULFAMETHOXAZOLE Inactive TRIMETHOPRIM 100 MG ORAL TABLET 1/2 qd 7 TRIMETHOPRIM 100 MG ORAL TABLET 434574 TRIMETHOPRIM Inactive CETIRIZINE HCL 5 MG ORAL TABLET Take 1 tablet by mouth daily CETIRIZINE HCL 5 MG ORAL TABLET 2064752 CETIRIZINE HCL Inactive PRAMIPEXOLE DIHYDROCHLORIDE 0.125 MG ORAL TABLET take 1 tablet po qhs for restless leg syndrome. PRAMIPEXOLE DIHYD ROCHLORIDE 0.125 MG ORAL TABLET 539831 PRAMIPEXOLE DIHYDROCHLORIDE Inactive MIRTAZAPINE 15 MG ORAL TABLET 1/2 tab by mouth at bedtime. 03/13 MIRTAZAPINE 15 MG ORAL TABLET 557687 MIRTAZAPINE In active DIFLUCAN 100 MG ORAL TABLET 1 tablet by mouth daily X 3 DAYS 201 04/09/01 DIFLUCAN 100 MG ORAL TABLET 566668 FLUCONAZOLE Inac tive DIFLUCAN 100 MG ORAL TABLET 1 tablet by mouth every other da y for 2 doses DIFLUCAN 100 MG ORAL TABLET 912560 FLUCONAZOLE Inactive CEFTIN 250 MG ORAL TABLET 1 tablet twice daily x 7 days CEFTIN 250 MG ORAL TABLET CEFUROXIME AXETIL Inactive CYMBALTA 30 MG ORAL CAPSULE DELAYED RELEASE PARTICLES 1 cap by mouth daily with 60mg CYMBALTA 30 MG ORAL CAPSULE DELAYED RELEASE PARTICLES 406467 DULOXETINE HCL Inactive CYMBALTA 60 MG ORAL CAPSULE DELAYED RELEASE PARTICLES Take 1 tablet by mouth daily CYMBALTA 60 MG ORAL CAPSULE DELAYED RELEA SE PARTICLES 591529 DULOXETINE HCL Inactive FOSAMAX 70 MG ORAL TABLET 1 po qweek. Take 30min prio r to first food/drink. Avoid lying down x 1 hour. FOSAMAX 70 MG ORAL TA BLET 898656 ALENDRONATE SODIUM Inactive DIFLUCAN 100 MG ORAL TABLET 1 tablet by mouth daily 20 19/08/26 DIFLUCAN 100 MG ORAL TABLET 19760711 FLUCONAZOLE Inactive PREDNISONE 20 MG ORAL TABLET 1 tab twice daily for 3 d ay, then one daily for three days PREDNISONE 20 MG ORAL TABLET 434015 PREDNIS ONE Inactive PROAIR HFA 108 (90 BASE) MCG/ACT INHALATION AEROSOL SO LUTION 1 puff every 6 hours as needed PROAIR HFA 108 (90 B ASE) MCG/ACT INHALATION AEROSOL SOLUTION ALBUTEROL SULFATE Inactive MECLIZINE HCL 25 MG ORAL TABLET one tab po qday prn dizziness 20 17/09/06 MECLIZINE HCL 25 MG ORAL TABLET 457256 MECLIZINE HCL Inactive PREDNISONE 20 MG ORAL TABLET 1 tablet by mouth twice d aily for 3 days, then 1 tablet daily for 3 days PREDNISONE 20 MG ORAL TA BLET 837666 PREDNISONE Inactive DIFLUCAN 100 MG ORAL TABLET 1 tablet by mouth daily 20 20/06/06 DIFLUCAN 100 MG ORAL TABLET 19760711 FLUCONAZOLE Inactive REPHRESH PRO-B ORAL CAPSULE 1 tablet daily REPHRESH PRO-B ORAL CAPSULE LACTOBACILLUS Inactive RED YEAST RICE 600 MG ORAL CAPSULE 1 pill by mouth daily RED YEAST RICE 600 MG ORAL CAPSULE 350455 RED YEAST RICE EXTRACT In active SUDAFED [...] 20 19/02/09 DIFLUCAN 100 MG ORAL TABLET 768046 FLUCONAZOLE Inactive VENLAFAXINE HCL 75 MG ORAL TABLET 1 am 1/2 at noon 201 07/07/09 VENLAFAXINE HCL 75 MG ORAL TABLET 260702 VENLAFAXINE HCL Inacti ve GABAPENTIN 300 MG ORAL CAPSULE 1 po daily GABAPENTIN 300 MG ORAL CAPSULE 102946 GABAPENTIN Inactive SUDAFED 12 HOUR 120 MG ORAL TABLET EXTENDED RELEASE 12 HOUR 1 pill twice daily if needed for congestion SUDAFED 12 HOUR 120 MG ORAL TABLET EXTENDED RELEASE 12 HOUR PSEUDOEPHEDRINE HCL Inactive AMITRIPTYLINE HCL 10 MG ORAL TABLET 1 tablet nightly by mout h for neuropathy AMITRIPTYLINE HCL 10 MG ORAL TABLET 025233 AMITRIPTYLINE HCL Inactive AMITRIPTYLINE HCL 50 MG ORAL TABLET 1 po q hs for sleep AMITRIPTYLINE HCL 50 MG ORAL TABLET 454104 AMITRIPTYLINE HCL Inac tive PREDNISONE 20 MG ORAL TABLET 1 tab twice daily for 3 d ay, then one daily for three days PREDNISONE 20 MG ORAL TABLET 895163 PREDNIS ONE Inactive ROPINIROLE HCL 0.25 MG ORAL TABLET 1 TAB PO Q HS 05/31 ROPINIROLE HCL 0.25 MG ORAL TABLET 451955 ROPINIROLE HCL Inact trent ROPINIROLE HCL 0.5 MG ORAL TABLET 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 ROPINIROLE HCL 0.5 MG ORAL TABLET 060543 ROPINIR OLE HCL Inactive ROPINIROLE HCL 1 MG ORAL TABLET 1 tab po q hs ROPINIROLE HCL 1 MG ORAL TABLET 382948 ROPINIROLE HCL Inactive ROPINIROLE HCL 2 MG ORAL TABLET 1 po at hs 7 ROPINIROLE HCL 2 MG ORAL TABLET 395500 ROPINIROLE HCL Inactive MIRAPEX 0.125 MG ORAL TABLET 1 po nightly MIRAPEX 0.125 MG ORAL TABLET 158119 PRAMIPEXOLE DIHYDROCHLORIDE Inactive MIRAPEX 0.25 MG ORAL TABLET 1 tablet by mouth at night for r estless leg MIRAPEX 0.25 MG ORAL TABLET 428161 PRAM IPEXOLE DIHYDROCHLORIDE Inactive HYDROXYZINE HCL 25 MG ORAL TABLET 1 tab po at HS prn sleep 08/02 HYDROXYZINE HCL 25 MG ORAL TABLET 320611 HYDROXYZINE HC L Inactive DIFLUCAN 100 MG ORAL TABLET 1 tablet by mouth daily 20 21/08/28 DIFLUCAN 100 MG ORAL TABLET 405562 FLUCONAZOLE Inactive BACLOFEN 10 MG ORAL TABLET Take one tablet by mouth three times a day BACLOFEN 10 MG ORAL TABLET 491202 BACLOFEN Inact trent PREDNISONE 20 MG ORAL TABLET 1 tab twice daily for 3 d ay, then one daily for three days PREDNISONE 20 MG ORAL TABLET 797496 PREDNIS ONE Inactive UNISOM SLEEPMELTS 25 MG [...] 03/03/23 BACTRIM DS 800-160 MG ORAL TABLET 740790 TRIMETHOPRIM-SULFAMETHOXAZOLE Inactive ZITHROMAX 250 MG ORAL TABLET 2 po today, then 1 po q days 2-5 20 15/02/10 ZITHROMAX 250 MG ORAL TABLET 863173 AZITHROMYCIN Mayela ctive BACTRIM DS 800-160 MG ORAL TABLET 1 tab by mouth twice daily 201 04/04/11 BACTRIM DS 800-160 MG ORAL TABLET 828586 TRIMETHOPRIM-SULFAMETHOXAZOLE Inactive BACTRIM DS 800-160 MG ORAL [...] a day AMOXICILLIN 500 MG ORAL CAPSULE 334801 AMOXICILLIN Inactive ZITHROMAX 250 MG ORAL TABLET 2 po today, then 1 po q days 2-5 20 20/04/28 ZITHROMAX 250 MG ORAL TABLET 379955 AZITHROMYCIN [place] ctive DIFLUCAN 100 MG ORAL TABLET 1 tablet by mouth daily 20 20/05/01 DIFLUCAN 100 MG ORAL TABLET 19760711 FLUCONAZOLE Inactive BACTRIM DS 800-160 MG ORAL TABLET 1 tab by mouth twice daily 201 06/09/02 BACTRIM DS 800-160 MG ORAL TABLET 19830105 TRIMETHOPRIM-SULFAMETHOXAZOLE Inactive HYDROCHLOROTHIAZIDE 12.5 MG ORAL CAPSULE 1 pill by mough daily 2 HYDROCHLOROTHIAZIDE 12.5 MG ORAL CAPSULE [facility] LOROTHIAZIDE Inactive BACTRIM DS 800-160 MG ORAL TABLET 1 tab by mouth twice daily 201 9/05/06 BACTRIM DS 800-160 MG ORAL TABLET 996629 TRIMETHOPRIM-SULFAMETHOXAZOLE Inactive DIFLUCAN 100 MG ORAL TABLET 1 tablet by mouth daily 21/03/11 DIFLUCAN 100 MG ORAL TABLET 19760711 FLUCONAZOLE Inactive ZITHROMAX 250 MG ORAL TABLET 2 po today, then 1 po q days 2-5 20 21/08/28 ZITHROMAX 250 MG ORAL TABLET 335360 AZITHROMYCIN Mayela ctive FLUCONAZOLE 100 MG ORAL [...] LIVING WILL ON FILE DURABLE POWER OF ENERGY CONSERVATION SPECIALIST FOR HEALTHCARE Vital Signs Date Name [...] Magnesium - Chemistry cholesterol, serum 196 mg/dL [phone]/07/30 triglyceride, serum, fasting 86 mg/dL 30-200 HDL cholesterol, serum 41 mg/dL 32-60 LDL cholesterol, serum 138 mg/dL 0-130 sodium, serum 140 mmol/L 509-319 7500/07/30 carbon dioxide, venous blood 28.6 mmol/L 21.0-32 [...] 5.0-8.5 Encounters Code Encounter Date Provider Facility CPT-29712 [id number] Vst-Est Level IV 10:36:10 C BRIDGET Sherman MD [facility]-41853 [id number] Vst-Est Level IV 13:49:08 [facility] [id number] Vst-Est Level IV 11:39:[address] Tesfaye Sherman MD [facility]-22000 [id number] Vst-Est Level IV 14:08:03 C BRIDGET Sherman MD [facility]-71499 Level 3 Est. Patient 18:06:36 CDT Tesfaye pearson MD [facility]-28126 [id number] Vst-Est Level IV 17:09:34 C BRIDGET Sherman MD [facility]-06143 Level 3 Est. Patient 17:27:08 CDT León hernandez [employer] [facility]-24357 [id number]-Aeo Vst-Est Level IV 14:00:[address] Tesfaye Sherman MD [facility]-40908 [id number] Vst-Est Level IV 19:27:[address] Tesfaye Sherman MD [facility]-98527 78050-Rsh Vst-Est Level IV 10:41:41 C DT Tesfaye Sherman MD [facility]-90299 34739-Smy Vst-Est Level III 09:40:56 CDT Tesfaye Sherman MD [facility]-90584 Level 4 Est. Patient 22:18:12 CDT Tesfaye pearson MD [facility]-66745 Level 4 Est. Patient 14:44:33 QUALITY SUPERVISOR Tesfaye pearson MD [facility]-92529 Level 4 Est. Patient 13:55:29 QUALITY SUPERVISOR Tesfaye pearson MD [facility]-95719 Level 4 Est. Patient 17:07:34 QUALITY SUPERVISOR Tesfaye pearson MD [facility]-86186 Level 4 Est. Patient 13:56:54 CDT Tesfaye peasron MD [facility]-65009 Level 4 Est. Patient 13:24:25 CDT Chelsea sanz APRN [facility] CPT-60388 Level 4 Est. Patient 09:14:56 CDT Tesfaye pearson MD [facility]-63464 Level 4 Est. Patient 18:40:25 QUALITY SUPERVISOR Tesfaye pearson MD [facility]-66559 Level 4 Est. Patient 18:13:07 QUALITY SUPERVISOR Tesfaye pearson MD [facility]-49153 Level 3 Est. Patient 10:46:32 CDT Rj cotto DO [facility] CPT-31912 Level 4 Est. Patient 20:19:25 CDT Tesfaye pearson MD [facility]-85519 Level 3 Est. Patient 09:07:31 CDT Tesfaye pearson MD [facility]-09318 Level 4 Est. Patient 13:12:56 CDT Tesfaye pearson MD [facility]-17841 Level 4 Est. Patient 21:24:55 QUALITY SUPERVISOR Tesfaye pearson MD [facility] CPT-81874 Level 3 Est. Patient 13:45:04 QUALITY SUPERVISOR Tesfaye pearson MD [facility] CPT-61728 Level 4 Est. Patient 13:50:45 CDT Tesfaye pearson MD [facility] CPT-56622 Level 3 Est. Patient 10:16:10 CDT Tesfaye pearson MD [facility] CPT-49357 Level 3 Est. Patient 16:36:07 QUALITY SUPERVISOR Kayla jameson MD [facility] CPT-27487 Level 4 Est. Patient 16:00:14 QUALITY SUPERVISOR Tesfaye pearson MD [facility]-33388 Level 4 Est. Patient 11:02:24 QUALITY SUPERVISOR Tesfaye pearson MD [facility] CPT-80384 Level 3 Est. Patient 20:21:43 QUALITY SUPERVISOR Kayla jameson MD [facility] CPT-73948 Level 3 Est. Patient 13:27:28 QUALITY SUPERVISOR Kayla jameson MD [facility] CPT-04400 Level 4 Est. Patient 15:57:17 QUALITY SUPERVISOR Tesfaye pearson MD [facility] CPT-21580 Level 3 New Patient 13:25:47 CDT Tesfaye kidd MD [facility] CPT-01942 Level 3 New Patient 17:22:21 CDT Kayla angel MD [facility] Procedures Code Procedure Name Date Entry Date Standard Desc ription CPT-88396 Prv Med Est Pt 40-64yrs 09:01:58 CDT 03/09 CPT-G0439 [facility] Annual Wellness Exam 11:25:51 CDT [id number] ([id number] 2P) Patient Reason Influenza immu nization not administered 13:25:19 QUALITY SUPERVISOR CPT-90893 Bone Density - XRAY USE ONLY 15:21:33 CDT 2 CPT-00368 Venipuncture Draw Fee 16:12:22 CDT CPT-G0439 Subsequent Annual Wellness Exam 18:06:36 CDT CPT-G0439 Subsequent Annual Wellness Exam 22:18:11 CDT CPT-90300 Bone Density - XRAY USE ONLY 11:43:58 CDT 2 CPT-89157 Bone Density - XRAY USE ONLY 10:05:16 CDT 2 CPT-74842 Prv Med New Pt 40-64 yrs 18:19:25 CDT 2016 CPT-89449 Foot, right, comp min 3V - XRAY USE ONLY 10:38:34 CDT CPT-G0439 Subsequent Annual Wellness Exam 13:55:04 CDT CPT-G0438 Initial Annual Wellness Exam 11:23:17 CD T CPT-J2930 Solu Medrol 125 mg (Methyl Prednisolone Sodium Succinate) 17:29:12 QUALITY SUPERVISOR CPT-17845 Abx/Therapy Injection 17:29:11 QUALITY SUPERVISOR CPT-J2930 Solu Medrol 125 mg (Methyl Prednisolone Sodium Succinate) 12:34:38 QUALITY SUPERVISOR CPT-J3420 Vitamin B12 1000mcg (Cyanocobalamin) 09:12:55 CDT CPT-J3420 Vitamin B12 1000mcg (Cyanocobalamin) 16:28:06 QUALITY SUPERVISOR CPT-23996 Venipuncture Draw Fee 08:39:53 CDT CPT-J3420 Vitamin B12 1000mcg (Cyanocobalamin) 08:46:22 CDT CPT-69769 Abx/Therapy Injection 08:46:22 CDT CPT-J3420 Vitamin B12 1000mcg (Cyanocobalamin) 08:41:26 CDT CPT-47071 Abx/Therapy Injection 08:41:26 CDT CPT-J3420 Vitamin B12 1000mcg (Cyanocobalamin) 08:57:15 CDT CPT-31547 Abx/Therapy Injection 08:57:15 CDT CPT-J3420 Vitamin B12 1000mcg (Cyanocobalamin) 10:59:03 CDT CPT-81374 Abx/Therapy Injection 10:59:03 CDT CPT-J3420 Vitamin B12 1000mcg (Cyanocobalamin) 15:05:39 CDT CPT-60090 Abx/Therapy Injection 15:05:39 CDT CPT-J3420 Vitamin B12 1000mcg (Cyanocobalamin) 13:50:45 CDT CPT-J3420 Vitamin B12 1000mcg (Cyanocobalamin) 08:48:55 CDT CPT-95564 Abx/Therapy Injection 08:48:55 CDT CPT-J3420 Vitamin B12 1000mcg (Cyanocobalamin) 09:14:54 CDT CPT-58114 Abx/Therapy Injection 09:14:54 CDT CPT-J3420 Vitamin B12 1000mcg (Cyanocobalamin) 09:06:06 CDT CPT-01268 Abx/Therapy Injection 09:06:06 CDT CPT-J3420 Vitamin B12 1000mcg (Cyanocobalamin) 09:49:14 CDT CPT-05842 Abx/Therapy Injection 09:49:14 CDT CPT-J3420 Vitamin B12 1000mcg (Cyanocobalamin) 09:10:30 QUALITY SUPERVISOR CPT-63480 Abx/Therapy Injection 09:10:30 QUALITY SUPERVISOR CPT-J3420 Vitamin B12 1000mcg (Cyanocobalamin) 09:11:07 QUALITY SUPERVISOR CPT-52470 Abx/Therapy Injection 09:11:07 QUALITY SUPERVISOR CPT-J3420 Vitamin B12 1000mcg (Cyanocobalamin) 09:57:03 QUALITY SUPERVISOR CPT-34211 Abx/Therapy Injection 09:57:03 QUALITY SUPERVISOR CPT-J3420 Vitamin B12 1000mcg (Cyanocobalamin) 09:23:21 QUALITY SUPERVISOR CPT-95595 Abx/Therapy Injection 09:23:21 QUALITY SUPERVISOR CPT-88475 Urine Dip (Floor Use Only) 20:21:44 QUALITY SUPERVISOR 201 02/12/11 CPT-94852 UA Dip Auto (Floor Use Only) 10:04:39 QUALITY SUPERVISOR 2 CPT-83037 Urine Dip (Floor Use Only) 13:27:28 QUALITY SUPERVISOR 201 02/12/01 CPT-85010 Bladder Scan 13:27:28 QUALITY SUPERVISOR CPT-90443 Abd single AP View 14:30:51 QUALITY SUPERVISOR CPT-OV Office Visit 10:15:43 CDT CPT-87619 Urine Dip (Floor Use Only) 17:22:21 CDT 201 02/09/02 CPT-81756 Bladder Scan 17:22:21 CDT
--- OUTSIDE RECORDS SUMMARY | 2020-05-05 12:05 | XMS REPORT | Clinical Summary ---
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 V58.6 Active Tesfaye Sherman MD Long-term (current) drug use Yeast infection 112.9 Inactive Tesfaye Sherman MD Candidiasis of unspecified site Upper respiratory infection 465.9 Inactive Tesfaye Sherman MD Acute upper respiratory infections of un specified site Lower extremity edema, bilateral 782.3 Active 201 07/07/09 León Kodi BLOWING ENGINEER Edema Peripheral neuropathy 356.9 Active Tesfaye lamb MD Unspecified hereditary and idiopathic peripheral neuropathy Restless leg syndrome 333.94 Active Tesfaye lamb MD Restless legs syndrome (RLS) Overweight (BMI 25-29.9) Active Tesfaye pearson MD Overweight FH Diabetes ICD-V18.0 Inactive Tesfaye Sherman MD [...] Body Mass Index 20.0-20.9 Adult Eldon Shah RMFer Dysuria ICD-788.1 Inactive Tesfaye Sherman MD 201 07/05/07 Yeast infection ICD-112.9 Inactive Tesfaye lamb MD Upper respiratory infection ICD-465.9 Inactive Tesfaye Sherman MD FH Depression ICD-V17.0 Inactive Tesfaye Sherman MD Medication List Medication Instructions Start Date Stop Date Generic Name NDC Status Provider Patient Instruction PRAMIPEXOLE DIHYDROCHLORIDE 0.75 MG ORAL TABLET take 1 tab po qhs for restless leg syndrome. PRAMIPEXOLE DIHYDROCHLORIDE [id number] Acti ve Tesfaye Sherman MD Active DIFLUCAN 100 MG ORAL TABLET 1 tablet by mouth daily 20 23/12/05 FLUCONAZOLE 40034394591 No Longer Active Tesfaye Sherman MD Acti ve [facility] NIACIN FLUSH FREE 400-100 MG ORAL CAPSULE 1 daily NIACIN-INOSITOL 66612972875 No Longer Active Tesfaye Sherman MD A ctive FISH OIL 1000 MG ORAL CAPSULE DELAYED RELEASE 1 pill b y mouth daily for cholesterol OMEGA-3 FATTY ACIDS 66563006379 No Longe r Active Tesfaye Sherman MD Active UNISOM SLEEPMELTS 25 MG ORAL TABLET DISINTEGRATING 1.5 po q hs DIPHENHYDRAMINE HCL (SLEEP) 59516861961 No Longer Active Venkata laura Sherman MD Active PREDNISONE 20 MG ORAL TABLET 1 tab twice daily for 3 d ay, then one daily for three days PREDNISONE 35275341747 No Longer Active Tesfaye Sherman MD Active BACLOFEN 10 MG ORAL TABLET Take one tablet by mouth three times a day BACLOFEN 24116221467 No Longer Active Tesfaye Sherman MD Active LIDOCAINE 4 % EXTERNAL CREAM Apply to back prn pain LIDOCAINE 74712833717 Active Tesfaye Sherman MD Active TIZANIDINE HCL 2 MG ORAL TABLET 2 Mg in the AM and 6mg q hs 07/05 TIZANIDINE HCL 64544782701 Active Tesfaye Sherman MD Active HYDROXYZINE HCL 25 MG TABS TAKE 1 TABLET BY MOUTH AT B EDTIME NEEDED FOR SLEEP HYDROXYZINE HCL 02091642468 Active JOSHUA Lindsay Active FLUCONAZOLE 100 MG ORAL TABLET 1 by mouth daily for yeast infect ion FLUCONAZOLE 90043548022 No Longer Active Laurence Dominguez Acti ve ZITHROMAX 250 MG ORAL TABLET 2 po today, then 1 po q days 2-5 20 21/08/28 AZITHROMYCIN 60080440464 No Longer Active Tesfaye Sherman MD Active DIFLUCAN 100 MG ORAL TABLET 1 tablet by mouth daily 20 21/08/28 FLUCONAZOLE 94657674731 No Longer Active Tesfaye Sherman MD Acti ve HYDROXYZINE HCL 25 MG ORAL TABLET 1 tab po at HS prn sleep 08/02 HYDROXYZINE HCL 68173623803 No Longer Active Tesfaye Sherman MD Active MIRAPEX 0.5 MG ORAL TABLET 1 tablet at night for restless leg. 2018 PRAMIPEXOLE DIHYDROCHLORIDE 98465829668 Active Laurenceyohana Dominguez Active MIRAPEX 0.25 MG ORAL TABLET 1 tablet by mouth at night for r estless leg PRAMIPEXOLE DIHYDROCHLORIDE 51826844281 No Longer Act trent Laurenceyohana Dominguez Active MIRAPEX 0.125 MG ORAL TABLET 1 po nightly PRAMIPEXOLE DIHYDROCHLORIDE 99701569861 No Longer Active Laurence Dominguez Active ROPINIROLE HCL 2 MG ORAL TABLET 1 po at hs ROPI NIROLE HCL 22940865550 No Longer Active Laurenceyohana Dominguez Active ROPINIROLE HCL 1 MG ORAL TABLET 1 tab po q hs ROPINIROLE HCL 54156460105 No Longer Active Laurence Dominguez Active ROPINIROLE HCL 0.5 MG ORAL TABLET 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 ROPINIROLE HCL 72996076629 No Longer Active MARCUS Panchal Active ROPINIROLE HCL 0.25 MG ORAL TABLET 1 TAB PO Q HS 05/31 ROPINIROLE HCL 95756303778 No Longer Active Tesfaye Sherman MD Ac tive PREDNISONE 20 MG ORAL TABLET 1 tab twice daily for 3 d ay, then one daily for three days PREDNISONE 17915144825 No Longer Active Tesfaye Sherman MD Active AMITRIPTYLINE HCL 50 MG ORAL TABLET 1 po q hs for sleep AMITRIPTYLINE HCL 69333071513 No Longer Active Tesfaye Sherman MD Active AMITRIPTYLINE HCL 10 MG ORAL TABLET 1 tablet nightly by mout h for neuropathy AMITRIPTYLINE HCL 54133295953 No Longer Active MARCUS Stapleton Active DIFLUCAN 100 MG ORAL TABLET 1 tablet by mouth daily 20 21/03/11 FLUCONAZOLE 15554676769 No Longer Active Tesfaye Sherman MD Acti ve BACTRIM DS 800-160 MG ORAL TABLET 1 tab by mouth twice daily 201 07/08/06 TRIMETHOPRIM-SULFAMETHOXAZOLE 75205438202 No Longer Active Umer Sherman MD Active CLARITIN 10 MG ORAL TABLET Take one by mouth daily LORATADINE 93418091494 Active Tesfaye Sherman MD Active SUDAFED 12 HOUR 120 MG ORAL TABLET EXTENDED RELEASE 12 HOUR 1 pill twice daily if needed for congestion PSEUDOEPHEDRINE HCL 567645850 13 No Longer Active Tesfaye Sherman MD Active FENOFIBRATE 145 MG ORAL TABLET 1 by mouth daily FENOFIBRATE 98156630331 Active Laurence Dominguez Active GABAPENTIN 300 MG ORAL CAPSULE 1 po daily GABAP ENTIN 00685131139 No Longer Active Tesfaye Sherman MD Active HYDROCHLOROTHIAZIDE 12.5 MG ORAL CAPSULE 1 pill by mough daily 2 HYDROCHLOROTHIAZIDE 01782323101 No Longer Active León Mariee APRN Active VENLAFAXINE HCL 75 MG ORAL TABLET 1 am 1/2 at noon 201 07/07/09 VENLAFAXINE HCL 74133707476 No Longer Active León Mariee APRN Act trent DIFLUCAN 100 MG ORAL TABLET 1 tablet by mouth daily 20 19/02/09 FLUCONAZOLE 98142369349 No Longer Active León Kodi BLOWING ENGINEER Active DIFLUCAN 100 MG ORAL TABLET 1 tablet by mouth daily 20 19/02/09 FLUCONAZOLE 76314626124 No Longer Active León Mariee APRN Active OXYCODONE-ACETAMINOPHEN 5-325 MG ORAL TABLET Take one tablet by mouth every 6 hours 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 Use sparingly OXYCODONE-ACETAMINOPHEN 96923717838 Active Tesfaye villar MD Active CLONAZEPAM 0.5 MG ORAL TABLET Take 1/2 qam, and 1/2 qpm CLONAZEPAM 67740272046 Active Tesfaye Sherman MD Active PRELIEF 340 (65-50) MG (CA-P) ORAL TABLET CALCIUM GLYCEROPHOSPHATE 20364301967 No Longer Active Tesfaye Sherman MD Active SUDAFED 24 HOUR 240 MG ORAL TABLET EXTENDED RELEASE 24 HOUR 1 tab po daily PSEUDOEPHEDRINE HCL 49891712018 No Longer Active Raul Sherman MD Active RED YEAST RICE 600 MG ORAL CAPSULE 1 pill by mouth daily RED YEAST RICE EXTRACT 95076299874 No Longer Active Tesfaye Sherman MD Active REPHRESH PRO-B ORAL CAPSULE 1 tablet daily LACT OBACILLUS 01005045579 No Longer Active Tesfaye Sherman MD Active ABILIFY 2 MG ORAL TABLET 1 by mouth daily. MARIA ELENA PIPRAZOLE 22150433266 Active Tesfaye Sherman MD Active CYMBALTA 60 MG ORAL CAPSULE DELAYED RELEASE PARTICLES 1 cap by mouth daily for pain DULOXETINE HCL 47444481635 Active MARCUS Lindsay Active DIFLUCAN 100 MG ORAL TABLET 1 tablet by mouth daily 20 20/06/06 FLUCONAZOLE 64055931254 No Longer Active Tesfaye Sherman MD Acti ve PREDNISONE 20 MG ORAL TABLET 1 tablet by mouth twice d aily for 3 days, then 1 tablet daily for 3 days PREDNISONE 33865053079 No L onger Active Tesfaye Sherman MD Active BACTRIM DS 800-160 MG ORAL TABLET 1 tab by mouth twice daily 201 06/09/02 TRIMETHOPRIM-SULFAMETHOXAZOLE 32547689489 No Longer Active Fer Dominguez Active DIFLUCAN 100 MG ORAL TABLET 1 tablet by mouth daily 20 20/05/01 FLUCONAZOLE 62614788156 No Longer Active Tesfaye Sherman MD Acti ve ZITHROMAX 250 MG ORAL TABLET 2 po today, then 1 po q days 2-5 20 20/04/28 AZITHROMYCIN 10919582353 No Longer Active Tesfaye Sherman MD Active MECLIZINE HCL 25 MG ORAL TABLET one tab po qday prn dizziness 20 17/09/06 MECLIZINE HCL 08261212127 No Longer Active Tesfaye Sherman MD Active PROAIR HFA 108 (90 BASE) MCG/ACT INHALATION AEROSOL SO LUTION 1 puff every 6 hours as needed ALBUTEROL SULFATE 03998342621 No Long er Active Tesfaye Sherman MD Active PREDNISONE 20 MG ORAL TABLET 1 tab twice daily for 3 d ay, then one daily for three days PREDNISONE 52488585478 No Longer Active Tesfaye Sherman MD Active MECLIZINE HCL 25 MG ORAL TABLET one 4 times a day as needed for dizziness MECLIZINE HCL 38827475483 Active Tesfaye Sherman MD Active AMOXICILLIN 500 MG ORAL CAPSULE 1 cap by mouth three times a day AMOXICILLIN 94557155203 No Longer Active Laurence Dominguez Acti ve DIFLUCAN 100 MG ORAL TABLET 1 tablet by mouth daily 20 19/08/26 FLUCONAZOLE 67151603287 No Longer Active Tesfaye Sherman MD Acti ve BACTRIM DS 800-160 MG ORAL TABLET 1 tab by mouth twice daily 201 05/10/28 TRIMETHOPRIM-SULFAMETHOXAZOLE 51928852215 No Longer Active A mirna Dominguez Active FOSAMAX 70 MG ORAL TABLET 1 po qweek. Take 30min prio r to first food/drink. Avoid lying down x 1 hour. ALENDRONATE SODIUM 79668292 144 No Longer Active Laurence Lopezduyen Active CYMBALTA 60 MG ORAL CAPSULE DELAYED RELEASE PARTICLES Take 1 tablet by mouth daily DULOXETINE HCL 07764746563 No Longer Active Edith Burch MD Active CYMBALTA 30 MG ORAL CAPSULE DELAYED RELEASE PARTICLES 1 cap by mouth daily with 60mg DULOXETINE HCL 64491334013 No Longer Active Jordan Burch MD Active DIFLUCAN 100 MG ORAL TABLET 1 tablet by mouth daily 19/03/05 FLUCONAZOLE 10955842722 No Longer Active Tesfaye Sherman MD Acti ve BACTRIM DS 800-160 MG ORAL TABLET 1 tab by mouth twice daily 201 05/06/28 TRIMETHOPRIM-SULFAMETHOXAZOLE 65743174686 No Longer Active Umer Sherman MD Active BACTRIM DS 800-160 MG ORAL TABLET 1 tab by mouth twice daily 201 05/04/15 TRIMETHOPRIM-SULFAMETHOXAZOLE 63242967538 No Longer Active Umer Sherman MD Active DIFLUCAN 150 MG ORAL TABLET 1 tablet by mouth daily 20 18/09/20 FLUCONAZOLE 42358575790 No Longer Active Tesfaye Sherman MD Acti ve BACTRIM DS 800-160 MG ORAL TABLET 1 tab by mouth twice daily 201 04/13/17 TRIMETHOPRIM-SULFAMETHOXAZOLE 49331357900 No Longer Active Umer Sherman MD Active CEFTIN 250 MG ORAL TABLET 1 tablet twice daily x 7 days CEFUROXIME AXETIL 67667843411 No Longer Active Tesfaye Sherman MD Active DIFLUCAN 100 MG ORAL TABLET 1 tablet by mouth every other da y for 2 doses FLUCONAZOLE 94668261515 No Longer Active Tesfaye barron MD Active DIFLUCAN 100 MG ORAL TABLET 1 tablet by mouth daily X 3 DAYS 201 04/09/01 FLUCONAZOLE 85855858332 No Longer Active Rj Moss DO Ac tive MIRTAZAPINE 15 MG ORAL TABLET 1/2 tab by mouth at bedtime. 03/13 MIRTAZAPINE 42237749438 No Longer Active Tesfaye Sherman MD Active BACTRIM DS 800-160 MG ORAL TABLET 1 tab by mouth twice daily 201 04/09/01 TRIMETHOPRIM-SULFAMETHOXAZOLE 59388316671 No Longer Active Umer Sherman MD Active PRAMIPEXOLE DIHYDROCHLORIDE 0.125 MG ORAL TABLET take 1 tablet po qhs for restless leg syndrome. PRAMIPEXOLE DIHYDROCHLORI DE 42109317024 No Longer Active Tesfaye Sherman MD Active MAGNESIUM 400 MG ORAL TABLET 1 tab po daily MAGNE SIUM 12417758821 Active Chelsea Areyvon BLOWING ENGINEER Active CETIRIZINE HCL 5 MG ORAL TABLET Take 1 tablet by mouth daily CETIRIZINE HCL 64796098758 No Longer Active Chelsea Arell BLOWING ENGINEER Activ e TRIMETHOPRIM 100 MG ORAL TABLET 1/2 qd TRIM ETHOPRIM 86147007149 No Longer Active Chelsea Cardenas APRN Active BACTRIM DS 800-160 MG ORAL TABLET 1 tab by mouth twice daily 201 04/04/11 TRIMETHOPRIM-SULFAMETHOXAZOLE 19413657470 No Longer Active Umer Sherman MD Active BACTRIM DS 800-160 MG ORAL TABLET 1 tab by mouth twice daily X 10 DAYS TRIMETHOPRIM-SULFAMETHOXAZOLE 44481593532 No Longer Active Tesfaye Sherman MD Active AMOXICILLIN 500 MG ORAL CAPSULE 1 cap by mouth three times a day AMOXICILLIN 14586405939 No Longer Active Adriana Arredondo, MARCUS A ctive B-12 1000 MCG ORAL LOZENGE 1 tab po daily CYANO COBALAMIN 60471302126 Active Tesfaye Sherman MD Active VITAMIN D3 2000 UNIT ORAL TABLET 1 daily, for vitamin D deficien cy CHOLECALCIFEROL 21513430417 No Longer Active Tesfaye Sherman MD Active ZITHROMAX 250 MG ORAL TABLET 2 po today, then 1 po q days 2-5 20 15/02/10 AZITHROMYCIN 25283841795 No Longer Active Tesfaye Sherman MD Active BACTRIM DS 800-160 MG ORAL TABLET 1 tab by mouth twice daily 201 03/03/23 TRIMETHOPRIM-SULFAMETHOXAZOLE 22317097264 No Longer Active Umer Sherman MD Active DIFLUCAN 150 MG ORAL TABLET 1 qd FLUCONAZOL E 68845662762 No Longer Active Kayla Cooper MD Active FLUTICASONE PROPIONATE 50 MCG/ACT NASAL SUSPENSION 1 spray each nostril twice daily FLUTICASONE PROPIONATE 12478287580 Active D patricia Sherman MD Active LOVASTATIN 20 MG ORAL TABLET Take 1 tablet by mouth daily LOVASTATIN 08964868025 No Longer Active Tesfaye Sherman MD Acti ve MELOXICAM 7.5 MG ORAL TABLET 1 tablet by mouth daily 2 MELOXICAM 40027202073 No Longer Active Tesfaye Sherman MD Acti ve GABAPENTIN 300 MG ORAL CAPSULE Take two tablets by mouth every e vening GABAPENTIN 16212468270 No Longer Active Edith Burch MD A ctive GABAPENTIN 300 MG ORAL CAPSULE Take two tablets by mouth every e vening GABAPENTIN 300 MG ORAL CAPSULE 793423 GABAPENTIN I nactive MELOXICAM 7.5 MG ORAL TABLET 1 tablet by mouth daily 2 MELOXICAM 7.5 MG ORAL TABLET 740207 MELOXICAM Inactive LOVASTATIN 20 MG ORAL TABLET Take 1 tablet by mouth daily LOVASTATIN 20 MG ORAL TABLET 037907 LOVASTATIN Inactive DIFLUCAN 150 MG ORAL TABLET 1 qd DIFLUCAN 150 MG ORAL TABLET 940925 FLUCONAZOLE Inactive VITAMIN D3 2000 UNIT ORAL TABLET 1 daily, for vitamin D deficien cy VITAMIN D3 2000 UNIT ORAL TABLET CHOLECALCIFEROL Inactive AMOXICILLIN 500 MG ORAL CAPSULE 1 cap by mouth three times a day AMOXICILLIN 500 MG ORAL CAPSULE 361551 AMOXICILLIN Inactive BACTRIM DS 800-160 MG ORAL TABLET 1 tab by mouth twice daily X 10 DAYS BACTRIM DS 800-160 MG ORAL TABLET 839972 TRIMETHOPRIM-SULFAMETHOXAZOLE Inactive TRIMETHOPRIM 100 MG ORAL TABLET 1/2 qd 7 TRIMETHOPRIM 100 MG ORAL TABLET 337152 TRIMETHOPRIM Inactive CETIRIZINE HCL 5 MG ORAL TABLET Take 1 tablet by mouth daily CETIRIZINE HCL 5 MG ORAL TABLET 8133095 CETIRIZINE HCL Inactive PRAMIPEXOLE DIHYDROCHLORIDE 0.125 MG ORAL TABLET take 1 tablet po qhs for restless leg syndrome. PRAMIPEXOLE DIHYD ROCHLORIDE 0.125 MG ORAL TABLET 774812 PRAMIPEXOLE DIHYDROCHLORIDE Inactive MIRTAZAPINE 15 MG ORAL TABLET 1/2 tab by mouth at bedtime. 03/13 MIRTAZAPINE 15 MG ORAL TABLET 231925 MIRTAZAPINE In active DIFLUCAN 100 MG ORAL TABLET 1 tablet by mouth daily X 3 DAYS 201 04/09/01 DIFLUCAN 100 MG ORAL TABLET 112961 FLUCONAZOLE Inac tive DIFLUCAN 100 MG ORAL TABLET 1 tablet by mouth every other da y for 2 doses DIFLUCAN 100 MG ORAL TABLET 449453 FLUCONAZOLE Inactive CEFTIN 250 MG ORAL TABLET 1 tablet twice daily x 7 days CEFTIN 250 MG ORAL TABLET CEFUROXIME AXETIL Inactive CYMBALTA 30 MG ORAL CAPSULE DELAYED RELEASE PARTICLES 1 cap by mouth daily with 60mg CYMBALTA 30 MG ORAL CAPSULE DELAYED RELEASE PARTICLES 562992 DULOXETINE HCL Inactive CYMBALTA 60 MG ORAL CAPSULE DELAYED RELEASE PARTICLES Take 1 tablet by mouth daily CYMBALTA 60 MG ORAL CAPSULE DELAYED RELEA SE PARTICLES 414710 DULOXETINE HCL Inactive FOSAMAX 70 MG ORAL TABLET 1 po qweek. Take 30min prio r to first food/drink. Avoid lying down x 1 hour. FOSAMAX 70 MG ORAL TA BLET 704362 ALENDRONATE SODIUM Inactive DIFLUCAN 100 MG ORAL TABLET 1 tablet by mouth daily 20 19/08/26 DIFLUCAN 100 MG ORAL TABLET 19760711 FLUCONAZOLE Inactive PREDNISONE 20 MG ORAL TABLET 1 tab twice daily for 3 d ay, then one daily for three days PREDNISONE 20 MG ORAL TABLET 969026 PREDNIS ONE Inactive PROAIR HFA 108 (90 BASE) MCG/ACT INHALATION AEROSOL SO LUTION 1 puff every 6 hours as needed PROAIR HFA 108 (90 B ASE) MCG/ACT INHALATION AEROSOL SOLUTION ALBUTEROL SULFATE Inactive MECLIZINE HCL 25 MG ORAL TABLET one tab po qday prn dizziness 20 17/09/06 MECLIZINE HCL 25 MG ORAL TABLET 235981 MECLIZINE HCL Inactive PREDNISONE 20 MG ORAL TABLET 1 tablet by mouth twice d aily for 3 days, then 1 tablet daily for 3 days PREDNISONE 20 MG ORAL TA BLET 044280 PREDNISONE Inactive DIFLUCAN 100 MG ORAL TABLET 1 tablet by mouth daily 20 20/06/06 DIFLUCAN 100 MG ORAL TABLET 19760711 FLUCONAZOLE Inactive REPHRESH PRO-B ORAL CAPSULE 1 tablet daily REPHRESH PRO-B ORAL CAPSULE LACTOBACILLUS Inactive RED YEAST RICE 600 MG ORAL CAPSULE 1 pill by mouth daily RED YEAST RICE 600 MG ORAL CAPSULE 565432 RED YEAST RICE EXTRACT In active SUDAFED [...] 20 19/02/09 DIFLUCAN 100 MG ORAL TABLET 511360 FLUCONAZOLE Inactive VENLAFAXINE HCL 75 MG ORAL TABLET 1 am 1/2 at noon 201 07/07/09 VENLAFAXINE HCL 75 MG ORAL TABLET 232992 VENLAFAXINE HCL Inacti ve GABAPENTIN 300 MG ORAL CAPSULE 1 po daily GABAPENTIN 300 MG ORAL CAPSULE 942525 GABAPENTIN Inactive SUDAFED 12 HOUR 120 MG ORAL TABLET EXTENDED RELEASE 12 HOUR 1 pill twice daily if needed for congestion SUDAFED 12 HOUR 120 MG ORAL TABLET EXTENDED RELEASE 12 HOUR PSEUDOEPHEDRINE HCL Inactive AMITRIPTYLINE HCL 10 MG ORAL TABLET 1 tablet nightly by mout h for neuropathy AMITRIPTYLINE HCL 10 MG ORAL TABLET 798460 AMITRIPTYLINE HCL Inactive AMITRIPTYLINE HCL 50 MG ORAL TABLET 1 po q hs for sleep AMITRIPTYLINE HCL 50 MG ORAL TABLET 131420 AMITRIPTYLINE HCL Inac tive PREDNISONE 20 MG ORAL TABLET 1 tab twice daily for 3 d ay, then one daily for three days PREDNISONE 20 MG ORAL TABLET 424893 PREDNIS ONE Inactive ROPINIROLE HCL 0.25 MG ORAL TABLET 1 TAB PO Q HS 05/31 ROPINIROLE HCL 0.25 MG ORAL TABLET 902033 ROPINIROLE HCL Inact trent ROPINIROLE HCL 0.5 MG ORAL TABLET 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 ROPINIROLE HCL 0.5 MG ORAL TABLET 964748 ROPINIR OLE HCL Inactive ROPINIROLE HCL 1 MG ORAL TABLET 1 tab po q hs ROPINIROLE HCL 1 MG ORAL TABLET 152652 ROPINIROLE HCL Inactive ROPINIROLE HCL 2 MG ORAL TABLET 1 po at hs 7 ROPINIROLE HCL 2 MG ORAL TABLET 559548 ROPINIROLE HCL Inactive MIRAPEX 0.125 MG ORAL TABLET 1 po nightly MIRAPEX 0.125 MG ORAL TABLET 952369 PRAMIPEXOLE DIHYDROCHLORIDE Inactive MIRAPEX 0.25 MG ORAL TABLET 1 tablet by mouth at night for r estless leg MIRAPEX 0.25 MG ORAL TABLET 359782 PRAM IPEXOLE DIHYDROCHLORIDE Inactive HYDROXYZINE HCL 25 MG ORAL TABLET 1 tab po at HS prn sleep 08/02 HYDROXYZINE HCL 25 MG ORAL TABLET 717070 HYDROXYZINE HC L Inactive DIFLUCAN 100 MG ORAL TABLET 1 tablet by mouth daily 20 21/08/28 DIFLUCAN 100 MG ORAL TABLET 186793 FLUCONAZOLE Inactive BACLOFEN 10 MG ORAL TABLET Take one tablet by mouth three times a day BACLOFEN 10 MG ORAL TABLET 724465 BACLOFEN Inact trent PREDNISONE 20 MG ORAL TABLET 1 tab twice daily for 3 d ay, then one daily for three days PREDNISONE 20 MG ORAL TABLET 532766 PREDNIS ONE Inactive UNISOM SLEEPMELTS 25 MG [...] 03/03/23 BACTRIM DS 800-160 MG ORAL TABLET 522579 TRIMETHOPRIM-SULFAMETHOXAZOLE Inactive ZITHROMAX 250 MG ORAL TABLET 2 po today, then 1 po q days 2-5 20 15/02/10 ZITHROMAX 250 MG ORAL TABLET 632083 AZITHROMYCIN Mayela ctive BACTRIM DS 800-160 MG ORAL TABLET 1 tab by mouth twice daily 201 04/04/11 BACTRIM DS 800-160 MG ORAL TABLET 197633 TRIMETHOPRIM-SULFAMETHOXAZOLE Inactive BACTRIM DS 800-160 MG ORAL [...] a day AMOXICILLIN 500 MG ORAL CAPSULE 434161 AMOXICILLIN Inactive ZITHROMAX 250 MG ORAL TABLET 2 po today, then 1 po q days 2-5 20 20/04/28 ZITHROMAX 250 MG ORAL TABLET 074438 AZITHROMYCIN Mayela ctive DIFLUCAN 100 MG ORAL TABLET 1 tablet by mouth daily 20 20/05/01 DIFLUCAN 100 MG ORAL TABLET 19760711 FLUCONAZOLE Inactive BACTRIM DS 800-160 MG ORAL TABLET 1 tab by mouth twice daily 201 06/09/02 BACTRIM DS 800-160 MG ORAL TABLET 19830105 TRIMETHOPRIM-SULFAMETHOXAZOLE Inactive HYDROCHLOROTHIAZIDE 12.5 MG ORAL CAPSULE 1 pill by mough daily 2 HYDROCHLOROTHIAZIDE 12.5 MG ORAL CAPSULE [facility] LOROTHIAZIDE Inactive BACTRIM DS 800-160 MG ORAL TABLET 1 tab by mouth twice daily 201 07/08/06 BACTRIM DS 800-160 MG ORAL TABLET 027181 TRIMETHOPRIM-SULFAMETHOXAZOLE Inactive DIFLUCAN 100 MG ORAL TABLET 1 tablet by mouth daily 21/03/11 DIFLUCAN 100 MG ORAL TABLET 19760711 FLUCONAZOLE Inactive ZITHROMAX 250 MG ORAL TABLET 2 po today, then 1 po q days 2-5 20 21/08/28 ZITHROMAX 250 MG ORAL TABLET 639586 AZITHROMYCIN [place] ctive FLUCONAZOLE 100 MG ORAL TABLET 1 [...] LIVING WILL ON FILE DURABLE POWER OF SPEEDOMETER MECHANIC FOR HEALTHCARE Vital Signs Date Name Value [...] Magnesium - Chemistry cholesterol, serum 196 mg/dL 630-433 0313/07/30 triglyceride, serum, fasting 86 mg/dL 30-200 HDL cholesterol, serum 41 mg/dL 32-60 LDL cholesterol, serum 138 mg/dL 0-130 sodium, serum 140 mmol/L 040-082 6406/07/30 carbon dioxide, venous blood 28.6 mmol/L 21.0-32 [...] 5.0-8.5 Encounters Code Encounter Date Provider Facility CPT-54292 [id number] Vst-Est Level IV 10:36:10 C BRIDGET Sherman MD [facility] CPT-83079 [id number] Vst-Est Level IV 13:49:08 DIGITAL 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 Mendy Matute [facility] CPT-86337 [id number] Vst-Est Level IV 11:39:[address] Tesfaye Sherman MD [facility] CPT-93153 [id number] Vst-Est Level IV 14:08:03 C BRIDGET Sherman MD [facility] CPT-81769 Level 3 Est. Patient 18:06:36 CDT Tesfaye pearson MD [facility] CPT-35490 [id number] Vst-Est Level IV 17:09:34 C BRIDGET Sherman MD [facility] CPT-54952 Level 3 Est. Patient 17:27:08 CDT León hernandez APRN [facility] CPT-57639 [id number] Vst-Est Level IV 14:00:[address] Tesfaye Sherman MD [facility] CPT-98682 [id number] Vst-Est Level IV 19:27:[address] Tesfaye Sherman MD [facility] CPT-63963 [id number] Vst-Est Level IV 10:41:41 C BRIDGET Sherman MD [facility] CPT-38404 [id number] Vst-Est Level III 09:40:56 CDT Tesfaye Sherman MD [facility] CPT-01910 Level 4 Est. Patient 22:18:12 CDT Tesfaye pearson MD [facility] CPT-56432 Level 4 Est. Patient 14:44:33 DIGITAL 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 Tesfaye pearson MD [facility] CPT-66060 Level 4 Est. Patient 13:55:29 DIGITAL 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 Tesfaye pearson MD [facility] CPT-46270 Level 4 Est. Patient 17:07:34 DIGITAL 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 Tesfaye pearson MD [facility] CPT-33429 Level 4 Est. Patient 13:56:54 CDT Tesfaye pearson MD [facility] CPT-46877 Level 4 Est. Patient 13:24:25 CDT Chelsea Hardin yvon MERCADO [facility] CPT-01609 Level 4 Est. Patient 09:14:56 CDT Tesfaye pearson MD [facility]-97357 Level 4 Est. Patient 18:40:25 DIGITAL 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 Tesfaye pearson MD [facility]-10305 Level 4 Est. Patient 18:13:07 DIGITAL 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 Tesfaye pearson MD [facility] CPT-26852 Level 3 Est. Patient 10:46:32 CDT Rj cotto DO [facility] CPT-40856 Level 4 Est. Patient 20:19:25 CDT Tesfaye pearson MD [facility] CPT-91534 Level 3 Est. Patient 09:07:31 CDT Tesfaye pearson MD [facility] CPT-10340 Level 4 Est. Patient 13:12:56 CDT Tesfaye pearson MD [facility] CPT-57623 Level 4 Est. Patient 21:24:55 DIGITAL 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 Tesfaye pearson MD [facility] CPT-63393 Level 3 Est. Patient 13:45:04 DIGITAL 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 Tesfaye pearson MD [facility] CPT-54716 Level 4 Est. Patient 13:50:45 CDT Tesfaye pearson MD [facility] CPT-65518 Level 3 Est. Patient 10:16:10 CDT Tesfaye pearson MD [facility] CPT-66987 Level 3 Est. Patient 16:36:07 DIGITAL 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 Kayla jameson MD [facility] CPT-94723 Level 4 Est. Patient 16:00:14 DIGITAL 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 Tesfaye pearson MD [facility] CPT-61405 Level 4 Est. Patient 11:02:24 DIGITAL 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 Tesfaye pearson MD [facility] CPT-03130 Level 3 Est. Patient 20:21:43 DIGITAL 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 Kayla jameson MD [facility] CPT-55668 Level 3 Est. Patient 13:27:28 DIGITAL 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 Kayla jameson MD [facility] CPT-06079 Level 4 Est. Patient 15:57:17 DIGITAL 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 Tesfaye pearson MD [facility] CPT-84362 Level 3 New Patient 13:25:47 CDT Tesfaye kidd MD [facility] CPT-82931 Level 3 New Patient 17:22:21 CDT J John angel MD [facility] Procedures Code Procedure Name Date Entry Date Standard Desc ription CPT-G0439 Subsequent Annual Wellness Exam 11:25:51 CDT CPT-[id number] ([id number] 2P) Patient Reason Influenza immu nization not administered 13:25:19 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 CPT-27696 Bone Density - XRAY USE ONLY 15:21:33 CDT CPT-39280 Venipuncture Draw Fee 16:12:22 CDT CPT-G0439 Subsequent Annual Wellness Exam 18:06:36 CDT CPT-G0439 Subsequent Annual Wellness Exam 22:18:11 CDT CPT-64088 Bone Density - XRAY USE ONLY 11:43:58 CDT CPT-11671 Bone Density - XRAY USE ONLY 10:05:16 CDT 2 CPT-97524 Prv Med New Pt 40-64 yrs 18:19:25 CDT 2016 CPT-58171 Foot, right, comp min 3V - XRAY USE ONLY 10:38:34 CDT CPT-G0439 Subsequent Annual Wellness Exam 13:55:04 CDT CPT-G0438 Initial Annual Wellness Exam 11:23:17 CD T CPT-J2930 Solu Medrol 125 mg (Methyl Prednisolone Sodium Succinate) 17:29:12 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 CPT-14085 Abx/Therapy Injection 17:29:11 D[employer] 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 CPT-J2930 Solu Medrol 125 mg (Methyl Prednisolone Sodium Succinate) 12:34:38 D[employer] 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 CPT-J3420 Vitamin B12 1000mcg (Cyanocobalamin) 09:12:55 CDT CPT-J3420 Vitamin B12 1000mcg (Cyanocobalamin) 16:28:06 [employer] 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 CPT-15414 Venipuncture Draw Fee 08:39:53 CDT CPT-J3420 Vitamin B12 1000mcg (Cyanocobalamin) 08:46:22 CDT CPT-09261 Abx/Therapy Injection 08:46:22 CDT CPT-J3420 Vitamin B12 1000mcg (Cyanocobalamin) 08:41:26 CDT CPT-64063 Abx/Therapy Injection 08:41:26 CDT CPT-J3420 Vitamin B12 1000mcg (Cyanocobalamin) 08:57:15 CDT CPT-30933 Abx/Therapy Injection 08:57:15 CDT CPT-J3420 Vitamin B12 1000mcg (Cyanocobalamin) 10:59:03 CDT CPT-24905 Abx/Therapy Injection 10:59:03 CDT CPT-J3420 Vitamin B12 1000mcg (Cyanocobalamin) 15:05:39 CDT CPT-44942 Abx/Therapy Injection 15:05:39 CDT CPT-J3420 Vitamin B12 1000mcg (Cyanocobalamin) 13:50:45 CDT CPT-J3420 Vitamin B12 1000mcg (Cyanocobalamin) 08:48:55 CDT CPT-90476 Abx/Therapy Injection 08:48:55 CDT CPT-J3420 Vitamin B12 1000mcg (Cyanocobalamin) 09:14:54 CDT CPT-97130 Abx/Therapy Injection 09:14:54 CDT CPT-J3420 Vitamin B12 1000mcg (Cyanocobalamin) 09:06:06 CDT CPT-56603 Abx/Therapy Injection 09:06:06 CDT CPT-J3420 Vitamin B12 1000mcg (Cyanocobalamin) 09:49:14 CDT CPT-52546 Abx/Therapy Injection 09:49:14 CDT CPT-J3420 Vitamin B12 1000mcg (Cyanocobalamin) 09:10:30 [employer] 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 CPT-12840 Abx/Therapy Injection 09:10:30 D[employer] 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 CPT-J3420 Vitamin B12 1000mcg (Cyanocobalamin) 09:11:07 D[employer] 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 CPT-50208 Abx/Therapy Injection 09:11:07 [employer] 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 CPT-J3420 Vitamin B12 1000mcg (Cyanocobalamin) 09:57:03 [employer] 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 CPT-95931 Abx/Therapy Injection 09:57:03 [employer] 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 CPT-J3420 Vitamin B12 1000mcg (Cyanocobalamin) 09:23:21 [employer] 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 CPT-94819 Abx/Therapy Injection 09:23:21 [employer] 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 CPT-83541 Urine Dip (Floor Use Only) 20:21:44 [employer] 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 201 02/12/11 CPT-25812 UA Dip Auto (Floor Use Only) 10:04:39 [employer] 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 2 CPT-48129 Urine Dip (Floor Use Only) 13:27:28 [employer] 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 201 02/12/01 CPT-62295 Bladder Scan 13:27:28 D[employer] 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 CPT-02352 Abd single AP View 14:30:51 [employer] 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 CPT-OV Office Visit 10:15:43 CDT CPT-55888 Urine Dip (Floor Use Only) 17:22:21 CDT 201 02/09/02 CPT-95890 Bladder Scan 17:22:21 CDT
--- OUTSIDE RECORDS SUMMARY | 2020-05-05 12:06 | XMS REPORT | Clinical Summary ---
Author Author Talon, Jeri Wood Organization [employer] Address Unknown Phone Unavailable Allergies, Adverse Reactions, [...] Tesfaye kidd MD XANAX Critical Active Kayla taet MD SAVETERI Critical Active Kayla tate MD NUVIGIIsrael Critical Active Kayla tate MD NAPROXEN Critical Active Kayla guadarrama MD BENADRYIsrael Critical Active Kayla tate MD ATIVAN Critical Active Kayla tate MD Conditions or Problems Problem Name Problem Code Onset Date Status Entry Date Provider Comment Standard Description Annotate Depression V17.0 Resolved Tesafye Sherman MD Family history of psychiatric condition [...] Routine general medical examination at a [facility] Body Mass Index 21.0-21.9 Adult Refinement [...] Tesfaye Sherman MD Dysuria 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 PRAMIPEXOLE DIHYDROCHLORIDE 42503713126 Acti ve Tesfaye Sherman MD Active DIFLUCAN 100 MG ORAL TABLET 1 tablet by mouth daily 20 23/12/05 FLUCONAZOLE 74625135622 No Longer Active Tesfaye Sherman MD Acti ve [facility] NIACIN FLUSH FREE 400-100 MG ORAL CAPSULE 1 daily NIACIN-INOSITOL 64592312987 No Longer Active Tesfaye Sherman MD A ctive FISH OIL 1000 MG ORAL CAPSULE DELAYED RELEASE 1 pill b y mouth daily for cholesterol OMEGA-3 FATTY ACIDS 50222007643 No Longe r Active Tesfaye Sherman MD Active UNISOM SLEEPMELTS 25 MG ORAL TABLET DISINTEGRATING 1.5 po q hs DIPHENHYDRAMINE HCL (SLEEP) 15468106879 No Longer Active Venkata Sherman MD Active PREDNISONE 20 MG ORAL TABLET 1 tab twice daily for 3 d ay, then one daily for three days PREDNISONE 57023002570 No Longer Active Tesfaye Sherman MD Active BACLOFEN 10 MG ORAL TABLET Take one tablet by mouth three times a day BACLOFEN 05937557040 No Longer Active Tesfaye Sherman MD Active LIDOCAINE 4 % EXTERNAL CREAM Apply to back prn pain LIDOCAINE 26193476862 Active Tesfaye Sherman MD Active TIZANIDINE HCL 2 MG ORAL TABLET 2 Mg in the AM and 6mg q hs 07/05 TIZANIDINE HCL 26286192035 Active Tesfaye Sherman MD Active HYDROXYZINE HCL 25 MG TABS TAKE 1 TABLET BY MOUTH AT B EDTIME NEEDED FOR SLEEP HYDROXYZINE HCL 34841002587 Active JOSHUA Lindsay Active FLUCONAZOLE 100 MG ORAL TABLET 1 by mouth daily for yeast infect ion FLUCONAZOLE 30464199555 No Longer Active Laurence Dominguez Acti ve ZITHROMAX 250 MG ORAL TABLET 2 po today, then 1 po q days 2-5 20 21/08/28 AZITHROMYCIN 15379454121 No Longer Active Tesfaye Sherman MD Active DIFLUCAN 100 MG ORAL TABLET 1 tablet by mouth daily 20 21/08/28 FLUCONAZOLE 06613074593 No Longer Active Tesfaye Sherman MD Acti ve HYDROXYZINE HCL 25 MG ORAL TABLET 1 tab po at HS prn sleep 08/02 HYDROXYZINE HCL 98386682695 No Longer Active Tesfaye Sherman MD Active MIRAPEX 0.5 MG ORAL TABLET 1 tablet at night for restless leg. 2018 PRAMIPEXOLE DIHYDROCHLORIDE 64975607000 Active Laurenceyohana Dominguez Active MIRAPEX 0.25 MG ORAL TABLET 1 tablet by mouth at night for r estless leg PRAMIPEXOLE DIHYDROCHLORIDE 87621673519 No Longer Act trent Laurenceyohana Dominguez Active MIRAPEX 0.125 MG ORAL TABLET 1 po nightly PRAMIPEXOLE DIHYDROCHLORIDE 88342065737 No Longer Active Laurence Dominguez Active ROPINIROLE HCL 2 MG ORAL TABLET 1 po at hs ROPI NIROLE HCL 18305071308 No Longer Active Laurenceyohana Dominguez Active ROPINIROLE HCL 1 MG ORAL TABLET 1 tab po q hs ROPINIROLE HCL 34396708648 No Longer Active Laurence Dominguez Active ROPINIROLE HCL 0.5 MG ORAL TABLET 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 ROPINIROLE HCL 38537384361 No Longer Active MARCUS Panchal Active ROPINIROLE HCL 0.25 MG ORAL TABLET 1 TAB PO Q HS 05/31 ROPINIROLE HCL 60901687009 No Longer Active Tesfaye Sherman MD Ac tive PREDNISONE 20 MG ORAL TABLET 1 tab twice daily for 3 d ay, then one daily for three days PREDNISONE 66111981845 No Longer Active Tesfaye Sherman MD Active AMITRIPTYLINE HCL 50 MG ORAL TABLET 1 po q hs for sleep AMITRIPTYLINE HCL 47552193984 No Longer Active Tesfaye Sherman MD Active AMITRIPTYLINE HCL 10 MG ORAL TABLET 1 tablet nightly by mout h for neuropathy AMITRIPTYLINE HCL 29106924691 No Longer Active MARCUS Stapleton Active DIFLUCAN 100 MG ORAL TABLET 1 tablet by mouth daily 20 21/03/11 FLUCONAZOLE 95230634648 No Longer Active Tesfaye Sherman MD Acti ve BACTRIM DS 800-160 MG ORAL TABLET 1 tab by mouth twice daily 201 07/08/06 TRIMETHOPRIM-SULFAMETHOXAZOLE 35087422388 No Longer Active Umer Sherman MD Active CLARITIN 10 MG ORAL TABLET Take one by mouth daily LORATADINE 10473817181 Active Tesfaye Sherman MD Active SUDAFED 12 HOUR 120 MG ORAL TABLET EXTENDED RELEASE 12 HOUR 1 pill twice daily if needed for congestion PSEUDOEPHEDRINE HCL 297822601 13 No Longer Active Tesfaye Sherman MD Active FENOFIBRATE 145 MG ORAL TABLET 1 by mouth daily FENOFIBRATE 15044598175 Active Laurence Dominguez Active GABAPENTIN 300 MG ORAL CAPSULE 1 po daily GABAP ENTIN 39401774977 No Longer Active Tesfaye hSerman MD Active HYDROCHLOROTHIAZIDE 12.5 MG ORAL CAPSULE 1 pill by mough daily 2 HYDROCHLOROTHIAZIDE 59409653207 No Longer Active León Mariee APRN Active VENLAFAXINE HCL 75 MG ORAL TABLET 1 am 1/2 at noon 201 07/07/09 VENLAFAXINE HCL 05132868829 No Longer Active León Mariee APRN Act trent DIFLUCAN 100 MG ORAL TABLET 1 tablet by mouth daily 20 19/02/09 FLUCONAZOLE 45235430559 No Longer Active León Kodi ENERGY RISK MANAGEMENT ANALYST Active DIFLUCAN 100 MG ORAL TABLET 1 tablet by mouth daily 20 19/02/09 FLUCONAZOLE 32488416696 No Longer Active León Mariee APRN Active OXYCODONE-ACETAMINOPHEN 5-325 MG ORAL TABLET Take one tablet by mouth every 6 hours 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 Use sparingly OXYCODONE-ACETAMINOPHEN 65796533225 Active Tesfaye villar MD Active CLONAZEPAM 0.5 MG ORAL TABLET Take 1/2 qam, and 1/2 qpm CLONAZEPAM 05259071363 Active Tesfaye Sherman MD Active PRELIEF 340 (65-50) MG (CA-P) ORAL TABLET CALCIUM GLYCEROPHOSPHATE 68371615125 No Longer Active Tesfaye Sherman MD Active SUDAFED 24 HOUR 240 MG ORAL TABLET EXTENDED RELEASE 24 HOUR 1 tab po daily PSEUDOEPHEDRINE HCL 13109475683 No Longer Active Raul Sherman MD Active RED YEAST RICE 600 MG ORAL CAPSULE 1 pill by mouth daily RED YEAST RICE EXTRACT 86603121852 No Longer Active Tesfaye Sherman MD Active REPHRESH PRO-B ORAL CAPSULE 1 tablet daily LACT OBACILLUS 73359766957 No Longer Active Tesfaye Sherman MD Active ABILIFY 2 MG ORAL TABLET 1 by mouth daily. MARIA ELENA PIPRAZOLE 99520752762 Active Tesfaye Sherman MD Active CYMBALTA 60 MG ORAL CAPSULE DELAYED RELEASE PARTICLES 1 cap by mouth daily for pain DULOXETINE HCL 12124235590 Active MARCUS Lindsay Active DIFLUCAN 100 MG ORAL TABLET 1 tablet by mouth daily 20 20/06/06 FLUCONAZOLE 76690587912 No Longer Active Tesfaye Sherman MD Acti ve PREDNISONE 20 MG ORAL TABLET 1 tablet by mouth twice d aily for 3 days, then 1 tablet daily for 3 days PREDNISONE 75042784605 No L onger Active Tesfaye Sherman MD Active BACTRIM DS 800-160 MG ORAL TABLET 1 tab by mouth twice daily 201 06/09/02 TRIMETHOPRIM-SULFAMETHOXAZOLE 87709696142 No Longer Active Fer Dominguez Active DIFLUCAN 100 MG ORAL TABLET 1 tablet by mouth daily 20 20/05/01 FLUCONAZOLE 86768898412 No Longer Active Tesfaye Sherman MD Acti ve ZITHROMAX 250 MG ORAL TABLET 2 po today, then 1 po q days 2-5 20 20/04/28 AZITHROMYCIN 61292408911 No Longer Active Tesfaye Sherman MD Active MECLIZINE HCL 25 MG ORAL TABLET one tab po qday prn dizziness 20 17/09/06 MECLIZINE HCL 80602105446 No Longer Active Tesfaye Sherman MD Active PROAIR HFA 108 (90 BASE) MCG/ACT INHALATION AEROSOL SO LUTION 1 puff every 6 hours as needed ALBUTEROL SULFATE 42684314842 No Long er Active Tesfaye Sherman MD Active PREDNISONE 20 MG ORAL TABLET 1 tab twice daily for 3 d ay, then one daily for three days PREDNISONE 55192742303 No Longer Active Tesfaye Sherman MD Active MECLIZINE HCL 25 MG ORAL TABLET one 4 times a day as needed for dizziness MECLIZINE HCL 77124627232 Active Tesfaye Sherman MD Active AMOXICILLIN 500 MG ORAL CAPSULE 1 cap by mouth three times a day AMOXICILLIN 24685963104 No Longer Active Laurence Dominguez Acti ve DIFLUCAN 100 MG ORAL TABLET 1 tablet by mouth daily 20 19/08/26 FLUCONAZOLE 15661869688 No Longer Active Tesfaye Sherman MD Acti ve BACTRIM DS 800-160 MG ORAL TABLET 1 tab by mouth twice daily 201 05/10/28 TRIMETHOPRIM-SULFAMETHOXAZOLE 43727480983 No Longer Active A mirna Dominguez Active FOSAMAX 70 MG ORAL TABLET 1 po qweek. Take 30min prio r to first food/drink. Avoid lying down x 1 hour. ALENDRONATE SODIUM 41848723 144 No Longer Active Laurence Lopezduyen Active CYMBALTA 60 MG ORAL CAPSULE DELAYED RELEASE PARTICLES Take 1 tablet by mouth daily DULOXETINE HCL 67767386258 No Longer Active Edith Burch MD Active CYMBALTA 30 MG ORAL CAPSULE DELAYED RELEASE PARTICLES 1 cap by mouth daily with 60mg DULOXETINE HCL 01963816703 No Longer Active Jordan Burch MD Active DIFLUCAN 100 MG ORAL TABLET 1 tablet by mouth daily 19/03/05 FLUCONAZOLE 03964599253 No Longer Active Tesfaye Sherman MD Acti ve BACTRIM DS 800-160 MG ORAL TABLET 1 tab by mouth twice daily 201 05/06/28 TRIMETHOPRIM-SULFAMETHOXAZOLE 15525537577 No Longer Active Umer Sherman MD Active BACTRIM DS 800-160 MG ORAL TABLET 1 tab by mouth twice daily 201 05/04/15 TRIMETHOPRIM-SULFAMETHOXAZOLE 36577544399 No Longer Active Umer Sherman MD Active DIFLUCAN 150 MG ORAL TABLET 1 tablet by mouth daily 20 18/09/20 FLUCONAZOLE 14365228637 No Longer Active Tesfaye Sherman MD Acti ve BACTRIM DS 800-160 MG ORAL TABLET 1 tab by mouth twice daily 201 04/13/17 TRIMETHOPRIM-SULFAMETHOXAZOLE 21697690667 No Longer Active Umer Sherman MD Active CEFTIN 250 MG ORAL TABLET 1 tablet twice daily x 7 days CEFUROXIME AXETIL 25918611479 No Longer Active Tesfaye Sherman MD Active DIFLUCAN 100 MG ORAL TABLET 1 tablet by mouth every other da y for 2 doses FLUCONAZOLE 89060708117 No Longer Active Tesfaye barron MD Active DIFLUCAN 100 MG ORAL TABLET 1 tablet by mouth daily X 3 DAYS 201 04/09/01 FLUCONAZOLE 87939366780 No Longer Active Rj Moss DO Ac tive MIRTAZAPINE 15 MG ORAL TABLET 1/2 tab by mouth at bedtime. 03/13 MIRTAZAPINE 60069969657 No Longer Active Tesfaye Sherman MD Active BACTRIM DS 800-160 MG ORAL TABLET 1 tab by mouth twice daily 201 04/09/01 TRIMETHOPRIM-SULFAMETHOXAZOLE 88127618584 No Longer Active Umer Sherman MD Active PRAMIPEXOLE DIHYDROCHLORIDE 0.125 MG ORAL TABLET take 1 tablet po qhs for restless leg syndrome. PRAMIPEXOLE DIHYDROCHLORI DE 80477069474 No Longer Active Tesfaye Sherman MD Active MAGNESIUM 400 MG ORAL TABLET 1 tab po daily MAGNE SIUM 06647610733 Active Chelsea Areyvon ENERGY RISK MANAGEMENT ANALYST Active CETIRIZINE HCL 5 MG ORAL TABLET Take 1 tablet by mouth daily CETIRIZINE HCL 02517590382 No Longer Active Chelsea Arell ENERGY RISK MANAGEMENT ANALYST Activ e TRIMETHOPRIM 100 MG ORAL TABLET 1/2 qd TRIM ETHOPRIM 21145433749 No Longer Active Chelsea Cardenas APRN Active BACTRIM DS 800-160 MG ORAL TABLET 1 tab by mouth twice daily 201 04/04/11 TRIMETHOPRIM-SULFAMETHOXAZOLE 88115048480 No Longer Active Umer Sherman MD Active BACTRIM DS 800-160 MG ORAL TABLET 1 tab by mouth twice daily X 10 DAYS TRIMETHOPRIM-SULFAMETHOXAZOLE 71659782204 No Longer Active Tesfaye Sherman MD Active AMOXICILLIN 500 MG ORAL CAPSULE 1 cap by mouth three times a day AMOXICILLIN 88200700527 No Longer Active Adriana Arredondo, MARCUS A ctive B-12 1000 MCG ORAL LOZENGE 1 tab po daily CYANO COBALAMIN 26593343810 Active Tesfaye Sherman MD Active VITAMIN D3 2000 UNIT ORAL TABLET 1 daily, for vitamin D deficien cy CHOLECALCIFEROL 00856355534 No Longer Active Tesfaye Sherman MD Active ZITHROMAX 250 MG ORAL TABLET 2 po today, then 1 po q days 2-5 20 15/02/10 AZITHROMYCIN 57918632986 No Longer Active Tesfaye Sherman MD Active BACTRIM DS 800-160 MG ORAL TABLET 1 tab by mouth twice daily 201 03/03/23 TRIMETHOPRIM-SULFAMETHOXAZOLE 29005855380 No Longer Active Umer Sherman MD Active DIFLUCAN 150 MG ORAL TABLET 1 qd FLUCONAZOL E 18150621299 No Longer Active Kayla Cooper MD Active FLUTICASONE PROPIONATE 50 MCG/ACT NASAL SUSPENSION 1 spray each nostril twice daily FLUTICASONE PROPIONATE 63097095672 Active D patricia Sherman MD Active LOVASTATIN 20 MG ORAL TABLET Take 1 tablet by mouth daily LOVASTATIN 42338529780 No Longer Active Tesfaye Sherman MD Acti ve MELOXICAM 7.5 MG ORAL TABLET 1 tablet by mouth daily 2 MELOXICAM 84964676902 No Longer Active Tesfaye Sherman MD Acti ve GABAPENTIN 300 MG ORAL CAPSULE Take two tablets by mouth every e vening GABAPENTIN 21563641299 No Longer Active Edith Burch MD A ctive GABAPENTIN 300 MG ORAL CAPSULE Take two tablets by mouth every e vening GABAPENTIN 300 MG ORAL CAPSULE 842717 GABAPENTIN I nactive MELOXICAM 7.5 MG ORAL TABLET 1 tablet by mouth daily 2 MELOXICAM 7.5 MG ORAL TABLET 612734 MELOXICAM Inactive LOVASTATIN 20 MG ORAL TABLET Take 1 tablet by mouth daily LOVASTATIN 20 MG ORAL TABLET 432424 LOVASTATIN Inactive DIFLUCAN 150 MG ORAL TABLET 1 qd DIFLUCAN 150 MG ORAL TABLET 064074 FLUCONAZOLE Inactive VITAMIN D3 2000 UNIT ORAL TABLET 1 daily, for vitamin D deficien cy VITAMIN D3 2000 UNIT ORAL TABLET CHOLECALCIFEROL Inactive AMOXICILLIN 500 MG ORAL CAPSULE 1 cap by mouth three times a day AMOXICILLIN 500 MG ORAL CAPSULE 464504 AMOXICILLIN Inactive BACTRIM DS 800-160 MG ORAL TABLET 1 tab by mouth twice daily X 10 DAYS BACTRIM DS 800-160 MG ORAL TABLET 871063 TRIMETHOPRIM-SULFAMETHOXAZOLE Inactive TRIMETHOPRIM 100 MG ORAL TABLET 1/2 qd 7 TRIMETHOPRIM 100 MG ORAL TABLET 195628 TRIMETHOPRIM Inactive CETIRIZINE HCL 5 MG ORAL TABLET Take 1 tablet by mouth daily CETIRIZINE HCL 5 MG ORAL TABLET 6971114 CETIRIZINE HCL Inactive PRAMIPEXOLE DIHYDROCHLORIDE 0.125 MG ORAL TABLET take 1 tablet po qhs for restless leg syndrome. PRAMIPEXOLE DIHYD ROCHLORIDE 0.125 MG ORAL TABLET 655611 PRAMIPEXOLE DIHYDROCHLORIDE Inactive MIRTAZAPINE 15 MG ORAL TABLET 1/2 tab by mouth at bedtime. 03/13 MIRTAZAPINE 15 MG ORAL TABLET 859780 MIRTAZAPINE In active DIFLUCAN 100 MG ORAL TABLET 1 tablet by mouth daily X 3 DAYS 201 04/09/01 DIFLUCAN 100 MG ORAL TABLET 815433 FLUCONAZOLE Inac tive DIFLUCAN 100 MG ORAL TABLET 1 tablet by mouth every other da y for 2 doses DIFLUCAN 100 MG ORAL TABLET 647414 FLUCONAZOLE Inactive CEFTIN 250 MG ORAL TABLET 1 tablet twice daily x 7 days CEFTIN 250 MG ORAL TABLET CEFUROXIME AXETIL Inactive CYMBALTA 30 MG ORAL CAPSULE DELAYED RELEASE PARTICLES 1 cap by mouth daily with 60mg CYMBALTA 30 MG ORAL CAPSULE DELAYED RELEASE PARTICLES 146468 DULOXETINE HCL Inactive CYMBALTA 60 MG ORAL CAPSULE DELAYED RELEASE PARTICLES Take 1 tablet by mouth daily CYMBALTA 60 MG ORAL CAPSULE DELAYED RELEA SE PARTICLES 959750 DULOXETINE HCL Inactive FOSAMAX 70 MG ORAL TABLET 1 po qweek. Take 30min prio r to first food/drink. Avoid lying down x 1 hour. FOSAMAX 70 MG ORAL TA BLET 498765 ALENDRONATE SODIUM Inactive DIFLUCAN 100 MG ORAL TABLET 1 tablet by mouth daily 20 19/08/26 DIFLUCAN 100 MG ORAL TABLET 19760711 FLUCONAZOLE Inactive PREDNISONE 20 MG ORAL TABLET 1 tab twice daily for 3 d ay, then one daily for three days PREDNISONE 20 MG ORAL TABLET 976849 PREDNIS ONE Inactive PROAIR HFA 108 (90 BASE) MCG/ACT INHALATION AEROSOL SO LUTION 1 puff every 6 hours as needed PROAIR HFA 108 (90 B ASE) MCG/ACT INHALATION AEROSOL SOLUTION ALBUTEROL SULFATE Inactive MECLIZINE HCL 25 MG ORAL TABLET one tab po qday prn dizziness 20 17/09/06 MECLIZINE HCL 25 MG ORAL TABLET 060392 MECLIZINE HCL Inactive PREDNISONE 20 MG ORAL TABLET 1 tablet by mouth twice d aily for 3 days, then 1 tablet daily for 3 days PREDNISONE 20 MG ORAL TA BLET 900497 PREDNISONE Inactive DIFLUCAN 100 MG ORAL TABLET 1 tablet by mouth daily 20 20/06/06 DIFLUCAN 100 MG ORAL TABLET 19760711 FLUCONAZOLE Inactive REPHRESH PRO-B ORAL CAPSULE 1 tablet daily REPHRESH PRO-B ORAL CAPSULE LACTOBACILLUS Inactive RED YEAST RICE 600 MG ORAL CAPSULE 1 pill by mouth daily RED YEAST RICE 600 MG ORAL CAPSULE 736620 RED YEAST RICE EXTRACT In active SUDAFED [...] 20 19/02/09 DIFLUCAN 100 MG ORAL TABLET 433319 FLUCONAZOLE Inactive VENLAFAXINE HCL 75 MG ORAL TABLET 1 am 1/2 at noon 201 07/07/09 VENLAFAXINE HCL 75 MG ORAL TABLET 266242 VENLAFAXINE HCL Inacti ve GABAPENTIN 300 MG ORAL CAPSULE 1 po daily GABAPENTIN 300 MG ORAL CAPSULE 827843 GABAPENTIN Inactive SUDAFED 12 HOUR 120 MG ORAL TABLET EXTENDED RELEASE 12 HOUR 1 pill twice daily if needed for congestion SUDAFED 12 HOUR 120 MG ORAL TABLET EXTENDED RELEASE 12 HOUR PSEUDOEPHEDRINE HCL Inactive AMITRIPTYLINE HCL 10 MG ORAL TABLET 1 tablet nightly by mout h for neuropathy AMITRIPTYLINE HCL 10 MG ORAL TABLET 618888 AMITRIPTYLINE HCL Inactive AMITRIPTYLINE HCL 50 MG ORAL TABLET 1 po q hs for sleep AMITRIPTYLINE HCL 50 MG ORAL TABLET 419761 AMITRIPTYLINE HCL Inac tive PREDNISONE 20 MG ORAL TABLET 1 tab twice daily for 3 d ay, then one daily for three days PREDNISONE 20 MG ORAL TABLET 855204 PREDNIS ONE Inactive ROPINIROLE HCL 0.25 MG ORAL TABLET 1 TAB PO Q HS 05/31 ROPINIROLE HCL 0.25 MG ORAL TABLET 356279 ROPINIROLE HCL Inact trent ROPINIROLE HCL 0.5 MG ORAL TABLET 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 ROPINIROLE HCL 0.5 MG ORAL TABLET 884203 ROPINIR OLE HCL Inactive ROPINIROLE HCL 1 MG ORAL TABLET 1 tab po q hs ROPINIROLE HCL 1 MG ORAL TABLET 381892 ROPINIROLE HCL Inactive ROPINIROLE HCL 2 MG ORAL TABLET 1 po at hs 7 ROPINIROLE HCL 2 MG ORAL TABLET 724292 ROPINIROLE HCL Inactive MIRAPEX 0.125 MG ORAL TABLET 1 po nightly MIRAPEX 0.125 MG ORAL TABLET 251396 PRAMIPEXOLE DIHYDROCHLORIDE Inactive MIRAPEX 0.25 MG ORAL TABLET 1 tablet by mouth at night for r estless leg MIRAPEX 0.25 MG ORAL TABLET 158240 PRAM IPEXOLE DIHYDROCHLORIDE Inactive HYDROXYZINE HCL 25 MG ORAL TABLET 1 tab po at HS prn sleep 08/02 HYDROXYZINE HCL 25 MG ORAL TABLET 255076 HYDROXYZINE HC L Inactive DIFLUCAN 100 MG ORAL TABLET 1 tablet by mouth daily 20 21/08/28 DIFLUCAN 100 MG ORAL TABLET 559948 FLUCONAZOLE Inactive BACLOFEN 10 MG ORAL TABLET Take one tablet by mouth three times a day BACLOFEN 10 MG ORAL TABLET 664481 BACLOFEN Inact trent PREDNISONE 20 MG ORAL TABLET 1 tab twice daily for 3 d ay, then one daily for three days PREDNISONE 20 MG ORAL TABLET 063663 PREDNIS ONE Inactive UNISOM SLEEPMELTS 25 MG [...] 03/03/23 BACTRIM DS 800-160 MG ORAL TABLET 043635 TRIMETHOPRIM-SULFAMETHOXAZOLE Inactive ZITHROMAX 250 MG ORAL TABLET 2 po today, then 1 po q days 2-5 20 15/02/10 ZITHROMAX 250 MG ORAL TABLET 558486 AZITHROMYCIN Mayela ctive BACTRIM DS 800-160 MG ORAL TABLET 1 tab by mouth twice daily 201 04/04/11 BACTRIM DS 800-160 MG ORAL TABLET 029979 TRIMETHOPRIM-SULFAMETHOXAZOLE Inactive BACTRIM DS 800-160 MG ORAL [...] a day AMOXICILLIN 500 MG ORAL CAPSULE 067044 AMOXICILLIN Inactive ZITHROMAX 250 MG ORAL TABLET 2 po today, then 1 po q days 2-5 20 20/04/28 ZITHROMAX 250 MG ORAL TABLET 730448 AZITHROMYCIN Mayela ctive DIFLUCAN 100 MG ORAL TABLET 1 tablet by mouth daily 20 20/05/01 DIFLUCAN 100 MG ORAL TABLET 19760711 FLUCONAZOLE Inactive BACTRIM DS 800-160 MG ORAL TABLET 1 tab by mouth twice daily 201 06/09/02 BACTRIM DS 800-160 MG ORAL TABLET 19830105 TRIMETHOPRIM-SULFAMETHOXAZOLE Inactive HYDROCHLOROTHIAZIDE 12.5 MG ORAL CAPSULE 1 pill by mough daily 2 HYDROCHLOROTHIAZIDE 12.5 MG ORAL CAPSULE [facility] LOROTHIAZIDE Inactive BACTRIM DS 800-160 MG ORAL TABLET 1 tab by mouth twice daily 201 07/08/06 BACTRIM DS 800-160 MG ORAL TABLET 385912 TRIMETHOPRIM-SULFAMETHOXAZOLE Inactive DIFLUCAN 100 MG ORAL TABLET 1 tablet by mouth daily 21/03/11 DIFLUCAN 100 MG ORAL TABLET 19760711 FLUCONAZOLE Inactive ZITHROMAX 250 MG ORAL TABLET 2 po today, then 1 po q days 2-5 20 21/08/28 ZITHROMAX 250 MG ORAL TABLET 410325 AZITHROMYCIN [place] ctive FLUCONAZOLE 100 MG ORAL TABLET 1 [...] 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[employer] Vital Signs Date Name [...] Magnesium - Chemistry cholesterol, serum 196 mg/dL 408-264 4286/07/30 triglyceride, serum, fasting 86 mg/dL 30-200 HDL cholesterol, serum 41 mg/dL 32-60 LDL cholesterol, serum 138 mg/dL 0-130 sodium, serum 140 mmol/L 945-410 8344/07/30 carbon dioxide, venous blood 28.6 mmol/L 21.0-32 [...] 5.0-8.5 Encounters Code Encounter Date Provider Facility CPT-52381 [id number] Vst-Est Level IV 10:36:10 C BRIDGET Sherman MD [facility] CPT-74405 [id number] Vst-Est Level IV 13:49:08 INTEGRATION LEAD Mendy Matute [facility] CPT-78528 [id number] Vst-Est Level IV 11:39:[address] Tesfaye Sherman MD [facility] CPT-45031 [id number] Vst-Est Level IV 14:08:03 C BRIDGET Sherman MD [facility] CPT-90846 Level 3 Est. Patient 18:06:36 CDT Tesfaye pearson MD [facility] CPT-98487 [id number] Vst-Est Level IV 17:09:34 C BRIDGET Sherman MD [facility] CPT-93051 Level 3 Est. Patient 17:27:08 CDT León hernandez APRN [facility] CPT-82461 [id number] Vst-Est Level IV 14:00:[address] Tesfaye Sherman MD [facility] CPT-35913 [id number] Vst-Est Level IV 19:27:[address] Tesfaye Sherman MD [facility] CPT-69711 13921-Bvn Vst-Est Level IV 10:41:41 C BRIDGET Sherman MD [facility] CPT-25101 [id number] Vst-Est Level III 09:40:56 CDT Tesfaye Sherman MD [facility] CPT-26459 Level 4 Est. Patient 22:18:12 CDT Tesfaye pearson MD [facility] CPT-33237 Level 4 Est. Patient 14:44:33 INTEGRATION LEAD Tesfaye pearson MD [facility] CPT-55781 Level 4 Est. Patient 13:55:29 INTEGRATION LEAD Tesfaye pearson MD [facility] CPT-15657 Level 4 Est. Patient 17:07:34 INTEGRATION LEAD Tesfaye pearson MD [facility] CPT-98146 Level 4 Est. Patient 13:56:54 CDT Tesfaye pearson MD [facility] CPT-62726 Level 4 Est. Patient 13:24:25 CDT Chelsea Hardin yvon MERCADO [facility] CPT-71479 Level 4 Est. Patient 09:14:56 CDT Tesfaye pearson MD [facility]-63626 Level 4 Est. Patient 18:40:25 INTEGRATION LEAD Tesfaye pearson MD [facility]-46029 Level 4 Est. Patient 18:13:07 INTEGRATION LEAD Tesfaye pearson MD [facility] CPT-48274 Level 3 Est. Patient 10:46:32 CDT Rj cotto DO [facility] CPT-59966 Level 4 Est. Patient 20:19:25 CDT Tesfaye pearson MD [facility] CPT-64019 Level 3 Est. Patient 09:07:31 CDT Tesfaye pearson MD [facility] CPT-42993 Level 4 Est. Patient 13:12:56 CDT Tesfaye pearson MD [facility] CPT-02571 Level 4 Est. Patient 21:24:55 INTEGRATION LEAD Tesfaye pearson MD [facility] CPT-12079 Level 3 Est. Patient 13:45:04 INTEGRATION LEAD Tesfaye pearson MD [facility] CPT-94351 Level 4 Est. Patient 13:50:45 CDT Tesfaye pearson MD [facility] CPT-72769 Level 3 Est. Patient 10:16:10 CDT Tesfaye pearson MD [facility] CPT-72814 Level 3 Est. Patient 16:36:07 INTEGRATION LEAD Kayla jameson MD [facility] CPT-57665 Level 4 Est. Patient 16:00:14 INTEGRATION LEAD Tesfaye pearson MD [facility] CPT-71138 Level 4 Est. Patient 11:02:24 INTEGRATION LEAD Tesfaye pearson MD [facility] CPT-31900 Level 3 Est. Patient 20:21:43 INTEGRATION LEAD Kayla jameson MD [facility] CPT-15839 Level 3 Est. Patient 13:27:28 INTEGRATION LEAD Kayla jameson MD [facility] CPT-75205 Level 4 Est. Patient 15:57:17 INTEGRATION LEAD Tesfaye pearson MD [facility] CPT-03535 Level 3 New Patient 13:25:47 CDT Tesfaye kidd MD [facility] CPT-24179 Level 3 New Patient 17:22:21 CDT J John angel MD [facility] Procedures Code Procedure Name Date Entry Date Standard Desc ription CPT-G0439 Subsequent Annual Wellness Exam 11:25:51 CDT [id number]-[id number] ([id number] 2P) Patient Reason Influenza immu nization not administered 13:25:19 INTEGRATION LEAD CPT-03052 Bone Density - XRAY USE ONLY 15:21:33 CDT CPT-66241 Venipuncture Draw Fee 16:12:22 CDT CPT-G0439 Subsequent Annual Wellness Exam 18:06:36 CDT CPT-G0439 Subsequent Annual Wellness Exam 22:18:11 CDT CPT-85962 Bone Density - XRAY USE ONLY 11:43:58 CDT CPT-12291 Bone Density - XRAY USE ONLY 10:05:16 CDT 2 CPT-21137 Prv Med New Pt 40-64 yrs 18:19:25 CDT 2016 CPT-02537 Foot, right, comp min 3V - XRAY USE ONLY 10:38:34 CDT CPT-G0439 Subsequent Annual Wellness Exam 13:55:04 CDT CPT-G0438 Initial Annual Wellness Exam 11:23:17 CD T CPT-J2930 Solu Medrol 125 mg (Methyl Prednisolone Sodium Succinate) 17:29:12 INTEGRATION LEAD CPT-94028 Abx/Therapy Injection 17:29:11 INTEGRATION LEAD CPT-J2930 Solu Medrol 125 mg (Methyl Prednisolone Sodium Succinate) 12:34:38 INTEGRATION LEAD CPT-J3420 Vitamin B12 1000mcg (Cyanocobalamin) 09:12:55 CDT CPT-J3420 Vitamin B12 1000mcg (Cyanocobalamin) 16:28:06 INTEGRATION LEAD CPT-02474 Venipuncture Draw Fee 08:39:53 CDT CPT-J3420 Vitamin B12 1000mcg (Cyanocobalamin) 08:46:22 CDT CPT-12984 Abx/Therapy Injection 08:46:22 CDT CPT-J3420 Vitamin B12 1000mcg (Cyanocobalamin) 08:41:26 CDT CPT-78833 Abx/Therapy Injection 08:41:26 CDT CPT-J3420 Vitamin B12 1000mcg (Cyanocobalamin) 08:57:15 CDT CPT-42696 Abx/Therapy Injection 08:57:15 CDT CPT-J3420 Vitamin B12 1000mcg (Cyanocobalamin) 10:59:03 CDT CPT-07669 Abx/Therapy Injection 10:59:03 CDT CPT-J3420 Vitamin B12 1000mcg (Cyanocobalamin) 15:05:39 CDT CPT-88379 Abx/Therapy Injection 15:05:39 CDT CPT-J3420 Vitamin B12 1000mcg (Cyanocobalamin) 13:50:45 CDT CPT-J3420 Vitamin B12 1000mcg (Cyanocobalamin) 08:48:55 CDT CPT-56141 Abx/Therapy Injection 08:48:55 CDT CPT-J3420 Vitamin B12 1000mcg (Cyanocobalamin) 09:14:54 CDT CPT-83464 Abx/Therapy Injection 09:14:54 CDT CPT-J3420 Vitamin B12 1000mcg (Cyanocobalamin) 09:06:06 CDT CPT-77714 Abx/Therapy Injection 09:06:06 CDT CPT-J3420 Vitamin B12 1000mcg (Cyanocobalamin) 09:49:14 CDT CPT-86656 Abx/Therapy Injection 09:49:14 CDT CPT-J3420 Vitamin B12 1000mcg (Cyanocobalamin) 09:10:30 INTEGRATION LEAD CPT-55867 Abx/Therapy Injection 09:10:30 INTEGRATION LEAD CPT-J3420 Vitamin B12 1000mcg (Cyanocobalamin) 09:11:07 INTEGRATION LEAD CPT-04727 Abx/Therapy Injection 09:11:07 INTEGRATION LEAD CPT-J3420 Vitamin B12 1000mcg (Cyanocobalamin) 09:57:03 INTEGRATION LEAD CPT-26702 Abx/Therapy Injection 09:57:03 INTEGRATION LEAD CPT-J3420 Vitamin B12 1000mcg (Cyanocobalamin) 09:23:21 INTEGRATION LEAD CPT-05500 Abx/Therapy Injection 09:23:21 INTEGRATION LEAD CPT-78310 Urine Dip (Floor Use Only) 20:21:44 INTEGRATION LEAD 201 02/12/11 CPT-13451 UA Dip Auto (Floor Use Only) 10:04:39 INTEGRATION LEAD 2 CPT-46471 Urine Dip (Floor Use Only) 13:27:28 INTEGRATION LEAD 201 02/12/01 CPT-69505 Bladder Scan 13:27:28 INTEGRATION LEAD CPT-43467 Abd single AP View 14:30:51 INTEGRATION LEAD CPT-OV Office Visit 10:15:43 CDT CPT-37772 Urine Dip (Floor Use Only) 17:22:21 CDT 201 02/09/02 CPT-86286 Bladder Scan 17:22:21 CDT
--- OUTSIDE RECORDS SUMMARY | 2020-05-05 12:06 | XMS REPORT | Clinical Summary ---
Author Author Talon, Jeri Wood Organization [facility] Address Unknown Phone Unavailable Allergies, Adverse [...] daily, for vitamin D deficiency 2014 CHOLECALCIFEROL [id number] No Longer Active Tesfaye Sherman MD Active TIZANIDINE HCL 2 MG TABS take 1-2 tablet by mouth at bedtime at 9pm PRN TIZANIDINE HCL 89011443762 Active Tesfaye Owusu Active ZITHROMAX 250 MG TAB 2 po today, then 1 po q days 2-5 AZITHROMYCIN 96607686955 No Longer Active Tesfaye Sherman MD Acti ve BACTRIM DS 800-160 MG TAB 1 tab by mouth twice daily 2 TRIMETHOPRIM-SULFAMETHOXAZOLE 52892303294 No Longer Active Tesfaye Sherman MD Active PRELIEF 340 (65-50) MG (CA-P) ORAL TABS CALCIUM GLYCEROPHOSPHATE 76402418039 Active Tesfaye Sherman MD Active [facility] NIACIN FLUSH FREE 400-100 MG CAPS 1 daily NIACIN-INOSITOL 89852921642 Active Kayla Cooper MD Active DIFLUCAN 150 MG TABS 1 qd FLUCONAZOLE 14522 016613 No Longer Active Kayla Cooper MD Active FLUTICASONE PROPIONATE 50 MCG/ACT SUSP 1 spray each nostril twice daily FLUTICASONE PROPIONATE 43320390451 Active Tesfaye armenta MD Active LOVASTATIN 20 MG TABS Take 1 tablet by mouth daily LOVASTATIN 26311806617 No Longer Active Tesfaye Sherman MD Active MELOXICAM 7.5 MG TABS 1 tablet by mouth daily M ELOXICAM 71742036845 No Longer Active Tesfaye Sherman MD Active GABAPENTIN 300 MG CAPS Take two tablets by mouth every evening GABAPENTIN 47203792476 No Longer Active Edith Burch MD Active TRIMETHOPRIM 100 MG TABS 1/2 qd TRIMETHOPRIM 4308130 3001 Active Kayla Cooper MD Active OXYCODONE-ACETAMINOPHEN 5-325 MG TABS Take one tablet by mouth every 6 hours as needed. Max 12 tabs/day as needed OXYCODONE-ACETAMINOP HEN 70894702788 Active Tesfaye Sherman MD Active CYMBALTA 60 MG CPEP Take 1 tablet by mouth daily D ULOXETINE HCL 38050144637 Active Kayla Cooper MD Active CLONAZEPAM 0.5 MG TABS Take one tablet in the morning and 1.5 table t at 7pm CLONAZEPAM 02868654559 Active Kayla Cooper MD Active CETIRIZINE HCL 5 MG TABS Take 1 tablet by mouth daily CETIRIZINE HCL 03311111732 Active Kayla Cooper MD Active BACLOFEN 10 MG TABS Take one tablet by mouth three times a day BACLOFEN 45905753971 Active Kayla Cooper MD Active GABAPENTIN 300 MG CAPS Take two tablets by mouth every evening GABAPENTIN 300 MG CAPS 276608 GABAPENTIN Inactive MELOXICAM 7.5 MG TABS 1 tablet by mouth daily MELOXICAM 7.5 MG TABS 546535 MELOXICAM Inactive LOVASTATIN 20 MG TABS Take 1 tablet by mouth daily 201 02/12/20 LOVASTATIN 20 MG TABS 823835 LOVASTATIN Inactive DIFLUCAN 150 MG TABS 1 qd DIFLUCAN 150 MG T ABS 849487 FLUCONAZOLE Inactive VITAMIN D3 2000 UNIT TABS 1 daily, for vitamin D deficiency 2014 VITAMIN D3 2000 UNIT TABS CHOLECALCIFEROL Inacti ve BACTRIM DS 800-160 MG TAB 1 tab by mouth twice daily 2 BACTRIM DS 800-160 MG TAB TRIMETHOPRIM-SULFAMETHOXAZOLE Inac tive ZITHROMAX 250 MG TAB 2 po today, then 1 po q days 2-5 ZITHROMAX 250 MG TAB 3423516 AZITHROMYCIN Inactive Advance Directives Directive Description Start [...] Metabolic Panel, CBC, Lipid Panel - Chemistry blood glucose 95 mg/dL 65-110 urea nitrogen, blood 6 mg/dL 7-18 creatinine, serum 0.70 mg/dL 0.60-1.30 alanine aminotransferase (SGPT), serum 15 U/L 12-78 aspartate aminotransferase (SGOT), serum 17 U/L 15-37 alkaline phosphatase, serum 90 U/L 50-136 calcium, serum 9.8 mg/dL 8.5-10.1 bilirubin, serum, total 0.90 mg/dL 0.00-1.00 cholesterol, serum 237 mg/dL 883-018 5523/10/20 triglyceride, serum, fasting 71 mg/dL 30-200 HDL cholesterol, serum 54 mg/dL 32-96 LDL cholesterol, serum 169 mg/dL 0-130 carbon dioxide, venous blood 28.2 mmol/L 21.0-32 .0 chloride, serum 98 mmol/L 98-107 potassium, serum 4.5 mmol/L 3.5-5.2 sodium, serum 138 mmol/L 136-145 Lab Report: Comp. Metabolic Panel, CBC, Lipid [...] Panel - Chemistry cholesterol, serum 221 mg/dL 631-276 5269/01/23 triglyceride, serum, fasting 81 mg/dL 30-200 HDL [...] gravity, urine 1.000 urinalysis, routine Clean Catch appearance, urine clear leukocyte esterase, urine, by dipstick negative nitrite, urine, semiquantitative negative urobilinogen, urine, semiquantitative (dipstick) 0.2 protein, urine, semiquantitative (dipstick) negative urine color yellow Office Visit: UTI - Chemistry RBC, urine, [...] negative Encounters Code Encounter Date Provider Facility CPT-55446 Level 4 Est. Patient 13:50:45 CDT Tesfaye pearson MD [facility] CPT-53788 Level 3 Est. Patient 10:16:10 CDT Tesfaye pearson MD [facility] CPT-28397 Level 3 Est. Patient 16:36:07 CODY jameson MD [facility] CPT-46470 Level 4 Est. Patient 16:00:14 REAL ESTATE REP Tesfaye pearson MD [facility] CPT-98266 Level 4 Est. Patient 11:02:24 REAL ESTATE REP Tesfaye pearson MD [facility] CPT-12571 Level 3 Est. Patient 20:21:43 REAL ESTATE REP Kayla jameson MD [facility] CPT-12321 Level 3 Est. Patient 13:27:28 REAL ESTATE REP Kayla jameson MD [facility] CPT-82624 Level 4 Est. Patient 15:57:17 REAL ESTATE REP Tesfaye pearson MD [facility] CPT-00622 Level 3 New Patient 13:25:47 CDT Tesfaye kidd MD [facility] CPT-38365 Level 3 New Patient 17:22:21 CDT J John angel MD [facility] Procedures Code Procedure Name Date Entry Date Standard Desc ription CPT-J3420 Vitamin B12 1000mcg (Cyanocobalamin) 10:59:03 CDT CPT-31409 Abx/Therapy Injection 10:59:03 CDT CPT-J3420 Vitamin B12 1000mcg (Cyanocobalamin) 15:05:39 CDT CPT-36392 Abx/Therapy Injection 15:05:39 CDT CPT-J3420 Vitamin B12 1000mcg (Cyanocobalamin) 13:50:45 CDT CPT-J3420 Vitamin B12 1000mcg (Cyanocobalamin) 08:48:55 CDT CPT-76877 Abx/Therapy Injection 08:48:55 CDT CPT-J3420 Vitamin B12 1000mcg (Cyanocobalamin) 09:14:54 CDT CPT-23796 Abx/Therapy Injection 09:14:54 CDT CPT-J3420 Vitamin B12 1000mcg (Cyanocobalamin) 09:06:06 CDT CPT-41918 Abx/Therapy Injection 09:06:06 CDT CPT-J3420 Vitamin B12 1000mcg (Cyanocobalamin) 09:49:14 CDT CPT-28515 Abx/Therapy Injection 09:49:14 CDT CPT-J3420 Vitamin B12 1000mcg (Cyanocobalamin) 09:10:30 REAL ESTATE REP CPT-71265 Abx/Therapy Injection 09:10:30 REAL ESTATE REP CPT-J3420 Vitamin B12 1000mcg (Cyanocobalamin) 09:11:07 REAL ESTATE REP CPT-39872 Abx/Therapy Injection 09:11:07 REAL ESTATE REP CPT-J3420 Vitamin B12 1000mcg (Cyanocobalamin) 09:57:03 REAL ESTATE REP CPT-85880 Abx/Therapy Injection 09:57:03 REAL ESTATE REP CPT-J3420 Vitamin B12 1000mcg (Cyanocobalamin) 09:23:21 REAL ESTATE REP CPT-40025 Abx/Therapy Injection 09:23:21 REAL ESTATE REP CPT-23233 Urine Dip (Floor Use Only) 20:21:44 REAL ESTATE REP 201 02/12/11 CPT-87489 UA Dip Auto (Floor Use Only) 10:04:39 REAL ESTATE REP 2 CPT-76380 Urine Dip (Floor Use Only) 13:27:28 REAL ESTATE REP 201 02/12/01 CPT-23164 Bladder Scan 13:27:28 REAL ESTATE REP CPT-51613 Abd single AP View 14:30:51 REAL ESTATE REP CPT-OV Office Visit 10:15:43 CDT CPT-10789 Urine Dip (Floor Use Only) 17:22:21 CDT 201 02/09/02 CPT-99688 Bladder Scan 17:22:21 CDT
--- OUTSIDE RECORDS SUMMARY | 2020-05-05 12:07 | XMS REPORT | Clinical Summary ---
Author Author Jeri Hanley Organization [facility] Address Unknown Phone Unavailable Allergies, Adverse Reactions, [...] Generic Name NDC Status Provider Patient Instruction OXYCODONE-ACETAMINOPHEN 5-325 MG ORAL TABLET Take one tablet by mouth every 6 hours as needed. Use sparingly OXYCODONE-ACETAMINOPHEN [id number] Active Tesfaye Sherman MD Active PREDNISONE 20 MG ORAL TABLET 1 tab twice daily for 3 d ay, then one daily for three days PREDNISONE 41233980136 No Longer Active Tesfaye Sherman MD Active PROAIR HFA 108 (90 BASE) MCG/ACT INHALATION AEROSOL SO LUTION 1 puff every 6 hours as needed ALBUTEROL SULFATE 86330133407 Active [place] nda Raida Active MECLIZINE HCL 25 MG ORAL TABLET one 4 times a day as needed for dizziness MECLIZINE HCL 27292566582 Active Laurence Raida Active DIFLUCAN 100 MG ORAL TABLET 1 tablet by mouth daily FLUCONAZOLE 70708740735 Active Laurence Raida Active AMOXICILLIN 500 MG ORAL CAPSULE 1 cap by mouth three times a day AMOXICILLIN 00768720401 No Longer Active Laurence Raida Acti ve VENLAFAXINE HCL 75 MG ORAL TABLET 1 am 1/2 at noon VENLAFAXINE HCL 22542831030 Active Tesfaye Sherman MD Active DIFLUCAN 100 MG ORAL TABLET 1 tablet by mouth daily 20 19/08/26 FLUCONAZOLE 45791027086 No Longer Active Tesfaye Sherman MD Acti ve BACTRIM DS 800-160 MG ORAL TABLET 1 tab by mouth twice daily 201 05/10/28 TRIMETHOPRIM-SULFAMETHOXAZOLE 80110184721 No Longer Active A mirna Angelica Active FOSAMAX 70 MG ORAL TABLET 1 po qweek. Take 30min prio r to first food/drink. Avoid lying down x 1 hour. ALENDRONATE SODIUM 46643335 144 No Longer Active Laurence Lopezduyen Active REPHRESH PRO-B ORAL CAPSULE 1 tablet daily LACT OBACILLUS 29900653066 Active Edith Burch MD Active CYMBALTA 60 MG ORAL CAPSULE DELAYED RELEASE PARTICLES Take 1 tablet by mouth daily DULOXETINE HCL 36014190089 No Longer Active Edith Burch MD Active CYMBALTA 30 MG ORAL CAPSULE DELAYED RELEASE PARTICLES 1 cap by mouth daily with 60mg DULOXETINE HCL 87582043676 No Longer Active Jordan Burch MD Active FISH OIL 1000 MG ORAL CAPSULE DELAYED RELEASE 1 pill b y mouth daily for cholesterol OMEGA-3 FATTY ACIDS 43356151819 Active Cee Jaffe LPN Active RED YEAST RICE 600 MG ORAL CAPSULE 1 pill by mouth daily RED YEAST RICE EXTRACT 17418622698 Active Rosa Jaffe LPN Activ e DIFLUCAN 100 MG ORAL TABLET 1 tablet by mouth daily 20 19/03/05 FLUCONAZOLE 24945601503 No Longer Active Tesfaye Sherman MD Acti ve BACTRIM DS 800-160 MG ORAL TABLET 1 tab by mouth twice daily 201 05/06/28 TRIMETHOPRIM-SULFAMETHOXAZOLE 56397837415 No Longer Active Umer Sherman MD Active BACTRIM DS 800-160 MG ORAL TABLET 1 tab by mouth twice daily 201 05/04/15 TRIMETHOPRIM-SULFAMETHOXAZOLE 03914665420 No Longer Active Umer Sherman MD Active DIFLUCAN 150 MG ORAL TABLET 1 tablet by mouth daily 20 18/09/20 FLUCONAZOLE 06565566034 No Longer Active Tesfaye Sherman MD Acti ve BACTRIM DS 800-160 MG ORAL TABLET 1 tab by mouth twice daily 201 04/13/17 TRIMETHOPRIM-SULFAMETHOXAZOLE 83682281827 No Longer Active Umer Sherman MD Active ROPINIROLE HCL 0.25 MG ORAL TABLET 1 TAB PO Q HS ROPINIROLE HCL 80242143153 Active Tesfaye Sherman MD Active CEFTIN 250 MG ORAL TABLET 1 tablet twice daily x 7 days CEFUROXIME AXETIL 51459390562 No Longer Active Tesfaye Sherman MD Active DIFLUCAN 100 MG ORAL TABLET 1 tablet by mouth every other da y for 2 doses FLUCONAZOLE 50336414991 No Longer Active Tesfaye barron MD Active DIFLUCAN 100 MG ORAL TABLET 1 tablet by mouth daily X 3 DAYS 201 04/09/01 FLUCONAZOLE 27105002143 No Longer Active Rj Lyons tive MIRTAZAPINE 15 MG ORAL TABLET 1/2 tab by mouth at bedtime. 03/13 MIRTAZAPINE 47864255010 No Longer Active Tesfaye Sherman MD Active BACTRIM DS 800-160 MG ORAL TABLET 1 tab by mouth twice daily 201 04/09/01 TRIMETHOPRIM-SULFAMETHOXAZOLE 23067034996 No Longer Active Umer Sherman MD Active PRAMIPEXOLE DIHYDROCHLORIDE 0.125 MG ORAL TABLET take 1 tablet po qhs for restless leg syndrome. PRAMIPEXOLE DIHYDROCHLORI DE 46033476958 No Longer Active Tesfaye Sherman MD Active MAGNESIUM 400 MG ORAL TABLET 1 tab po daily MAGNE SIUM 41076444994 Active Chelsea Barba APRN Active SUDAFED 24 HOUR 240 MG ORAL TABLET EXTENDED RELEASE 24 HOUR 1 tab po daily PSEUDOEPHEDRINE HCL 49653771931 Active Chelsea NAPOLES RN Active CETIRIZINE HCL 5 MG ORAL TABLET Take 1 tablet by mouth daily CETIRIZINE HCL 25392186149 No Longer Active Chelsea Barba APRN Ac tive TRIMETHOPRIM 100 MG ORAL TABLET 1/2 qd TRIM ETHOPRIM 16605653039 No Longer Active Chelsea Barba APRN Active BACTRIM DS 800-160 MG ORAL TABLET 1 tab by mouth twice daily 201 04/04/11 TRIMETHOPRIM-SULFAMETHOXAZOLE 31329185363 No Longer Active Umer Sherman MD Active BACTRIM DS 800-160 MG ORAL TABLET 1 tab by mouth twice daily X 10 DAYS TRIMETHOPRIM-SULFAMETHOXAZOLE 81112352145 No Longer Active Tesfaye Sherman MD Active AMOXICILLIN 500 MG ORAL CAPSULE 1 cap by mouth three times a day AMOXICILLIN 78627095467 No Longer Active Adriana Arredondo Active MECLIZINE HCL 25 MG ORAL TABLET one tab po qday prn dizziness 09/08 MECLIZINE HCL 77032360342 Active Tesfaye Sherman MD Active B-12 1000 MCG ORAL LOZENGE 1 tab po daily CYANO COBALAMIN 70009005139 Active Tesfaye Sherman MD Active VITAMIN D3 2000 UNIT ORAL TABLET 1 daily, for vitamin D deficien cy CHOLECALCIFEROL 77124641569 No Longer Active Tesfaye Sherman MD Active TIZANIDINE HCL 2 MG ORAL TABLET take 1-2 tablet by [facility] every day at bedtime at 9pm PRN TIZANIDINE HCL 98176507800 Active Tesfaye hewitt MD Active ZITHROMAX 250 MG ORAL TABLET 2 po today, then 1 po q days 2-5 20 15/02/10 AZITHROMYCIN 08407284311 No Longer Active Tesfaye Sherman MD Active BACTRIM DS 800-160 MG ORAL TABLET 1 tab by mouth twice daily 201 03/03/23 TRIMETHOPRIM-SULFAMETHOXAZOLE 45906622900 No Longer Active Umer Sherman MD Active PRELIEF 340 (65-50) MG (CA-P) ORAL TABLET CALCIUM GLYCEROPHOSPHATE 76473351997 Active Tesfaye Sherman MD Acti ve [facility] NIACIN FLUSH FREE 400-100 MG ORAL CAPSULE 1 daily NIACIN-INOSITOL 62053667036 Active Kayla Cooper MD Activ e DIFLUCAN 150 MG ORAL TABLET 1 qd FLUCONAZOL E 94794707762 No Longer Active Kayla Cooper MD Active FLUTICASONE PROPIONATE 50 MCG/ACT NASAL SUSPENSION 1 spray each nostril twice daily FLUTICASONE PROPIONATE 75406527012 Active D patricia Sherman MD Active LOVASTATIN 20 MG ORAL TABLET Take 1 tablet by mouth daily LOVASTATIN 02421105881 No Longer Active Tesfaye Sherman MD Acti ve MELOXICAM 7.5 MG ORAL TABLET 1 tablet by mouth daily 2 MELOXICAM 39858280032 No Longer Active Tesfaye Sherman MD Acti ve GABAPENTIN 300 MG ORAL CAPSULE Take two tablets by mouth every e vening GABAPENTIN 26706589378 No Longer Active Edith Burch MD A ctive CLONAZEPAM 0.5 MG ORAL TABLET Take one tablet in the m orning and 1.5 tablet at 7pm CLONAZEPAM 28190992568 Active Kayla Cooper MD Active BACLOFEN 10 MG ORAL TABLET Take one tablet by mouth three times a d ay BACLOFEN 80160008202 Active Kayla Cooper MD Active GABAPENTIN 300 MG ORAL CAPSULE Take two tablets by mouth every e vening GABAPENTIN 300 MG ORAL CAPSULE 783006 GABAPENTIN I nactive MELOXICAM 7.5 MG ORAL TABLET 1 tablet by mouth daily 2 MELOXICAM 7.5 MG ORAL TABLET 305347 MELOXICAM Inactive LOVASTATIN 20 MG ORAL TABLET Take 1 tablet by mouth daily LOVASTATIN 20 MG ORAL TABLET 893661 LOVASTATIN Inactive DIFLUCAN 150 MG ORAL TABLET 1 qd DIFLUCAN 150 MG ORAL TABLET 342527 FLUCONAZOLE Inactive VITAMIN D3 2000 UNIT ORAL TABLET 1 daily, for vitamin D deficien cy VITAMIN D3 2000 UNIT ORAL TABLET CHOLECALCIFEROL Inactive AMOXICILLIN 500 MG ORAL CAPSULE 1 cap by mouth three times a day AMOXICILLIN 500 MG ORAL CAPSULE 022177 AMOXICILLIN Inactive BACTRIM DS 800-160 MG ORAL TABLET 1 tab by mouth twice daily X 10 DAYS BACTRIM DS 800-160 MG ORAL TABLET 107025 TRIMETHOPRIM-SULFAMETHOXAZOLE Inactive TRIMETHOPRIM 100 MG ORAL TABLET 1/2 qd 7 TRIMETHOPRIM 100 MG ORAL TABLET 443761 TRIMETHOPRIM Inactive CETIRIZINE HCL 5 MG ORAL TABLET Take 1 tablet by mouth daily CETIRIZINE HCL 5 MG ORAL TABLET 0692350 CETIRIZINE HCL Inactive PRAMIPEXOLE DIHYDROCHLORIDE 0.125 MG ORAL TABLET take 1 tablet po qhs for restless leg syndrome. PRAMIPEXOLE DIHYD ROCHLORIDE 0.125 MG ORAL TABLET 825033 PRAMIPEXOLE DIHYDROCHLORIDE Inactive MIRTAZAPINE 15 MG ORAL TABLET 1/2 tab by mouth at bedtime. 03/13 MIRTAZAPINE 15 MG ORAL TABLET 944645 MIRTAZAPINE In active DIFLUCAN 100 MG ORAL TABLET 1 tablet by mouth daily X 3 DAYS 201 04/09/01 DIFLUCAN 100 MG ORAL TABLET 483846 FLUCONAZOLE Inac tive DIFLUCAN 100 MG ORAL TABLET 1 tablet by mouth every other da y for 2 doses DIFLUCAN 100 MG ORAL TABLET 046058 FLUCONAZOLE Inactive CEFTIN 250 MG ORAL TABLET 1 tablet twice daily x 7 days CEFTIN 250 MG ORAL TABLET 868102 CEFUROXIME AXETIL Inactive CYMBALTA 30 MG ORAL CAPSULE DELAYED RELEASE PARTICLES 1 cap by mouth daily with 60mg CYMBALTA 30 MG ORAL CAPSULE DELAYED RELEASE PARTICLES 904199 DULOXETINE HCL Inactive CYMBALTA 60 MG ORAL CAPSULE DELAYED RELEASE PARTICLES Take 1 tablet by mouth daily CYMBALTA 60 MG ORAL CAPSULE DELAYED RELEA SE PARTICLES 267314 DULOXETINE HCL Inactive FOSAMAX 70 MG ORAL TABLET 1 po qweek. Take 30min prio r to first food/drink. Avoid lying down x 1 hour. FOSAMAX 70 MG ORAL TA BLET 735014 ALENDRONATE SODIUM Inactive DIFLUCAN 100 MG ORAL TABLET 1 tablet by mouth daily 19/08/26 DIFLUCAN 100 MG ORAL TABLET 19760711 FLUCONAZOLE Inactive PREDNISONE 20 MG ORAL TABLET 1 tab twice daily for 3 d ay, then one daily for three days PREDNISONE 20 MG ORAL TABLET 285729 PREDNIS ONE Inactive BACTRIM DS 800-160 MG ORAL TABLET 1 tab by mouth twice daily 201 03/03/23 BACTRIM DS 800-160 MG ORAL TABLET 19830105 TRIMETHOPRIM-SULFAMETHOXAZOLE Inactive ZITHROMAX 250 MG ORAL TABLET 2 po today, then 1 po q days 2-5 20 15/02/10 ZITHROMAX 250 MG ORAL TABLET 819414 AZITHROMYCIN Mayela ctive BACTRIM DS 800-160 MG ORAL TABLET 1 tab by mouth twice daily 201 04/04/11 BACTRIM DS 800-160 MG ORAL TABLET 19830105 TRIMETHOPRIM-SULFAMETHOXAZOLE Inactive BACTRIM DS 800-160 MG ORAL TABLET 1 tab by mouth twice daily 201 04/09/01 BACTRIM DS 800-160 MG ORAL TABLET 625372 TRIMETHOPRIM-SULFAMETHOXAZOLE Inactive BACTRIM DS 800-160 MG ORAL TABLET 1 tab by mouth twice daily 201 04/13/17 BACTRIM DS 800-160 MG ORAL TABLET 838916 TRIMETHOPRIM-SULFAMETHOXAZOLE Inactive DIFLUCAN 150 MG ORAL TABLET 1 tablet by mouth daily 20 18/09/20 DIFLUCAN 150 MG ORAL TABLET 19760712 FLUCONAZOLE Inactive BACTRIM DS 800-160 MG ORAL TABLET 1 tab by mouth twice daily 201 05/04/15 BACTRIM DS 800-160 MG ORAL TABLET 616299 TRIMETHOPRIM-SULFAMETHOXAZOLE Inactive BACTRIM DS 800-160 MG ORAL TABLET 1 tab by mouth twice daily 201 05/06/28 BACTRIM DS 800-160 MG ORAL TABLET 397103 TRIMETHOPRIM-SULFAMETHOXAZOLE Inactive DIFLUCAN 100 MG ORAL TABLET 1 tablet by mouth daily 20 19/03/05 DIFLUCAN 100 MG ORAL TABLET 19760711 FLUCONAZOLE Inactive BACTRIM DS 800-160 MG ORAL TABLET 1 tab by mouth twice daily 201 05/10/28 BACTRIM DS 800-160 MG ORAL TABLET 19830105 TRIMETHOPRIM-SULFAMETHOXAZOLE Inactive AMOXICILLIN 500 MG ORAL CAPSULE 1 cap by mouth three times a day AMOXICILLIN 500 MG ORAL CAPSULE 915651 AMOXICILLIN Inactive Advance Directives Directive Description Start Date PERMISSION TO SHARE DISCUSSED WITH PATIENT -- NO DECISION MADE DURABLE POWER OF INSURANCE PLAN [employer] FOR HEALTHCARE Vital Signs Date Name Value Unit Range Description blood pressure, diastolic 84 mm[Hg] BP lyon [...] ... - Chemistry sodium, serum 144 mmol/L 093-062 1316/06/14 carbon dioxide, venous blood 29.4 mmol/L 21.0-32 .0 potassium, serum 4.4 mmol/L 3.5-5.2 chloride, serum 108 mmol/L 98-107 blood glucose 100 mg/dL 65-110 urea nitrogen, blood 9 mg/dL 7-18 creatinine, serum 0.67 mg/dL 0.55-1.30 alanine aminotransferase (SGPT), serum 24 U/L 12-78 aspartate aminotransferase (SGOT), serum 15 U/L 15-37 calcium, serum 9.3 mg/dL 8.5-10.1 bilirubin, serum, total 0.50 mg/dL 0.00-1.00 cholesterol, serum 268 mg/dL 867-378 1679/06/14 triglyceride, serum, fasting 126 mg/dL 30-200 HDL cholesterol, serum 51 mg/dL 32-96 LDL cholesterol, serum 192 mg/dL 0-130 TSH 0.83 m[iU]/mL 0.36-3.74 thyroxine, serum, free 1.03 ng/dL 0.76-1.46 uric acid, serum 3.2 mg/dL 2.6-7.2 Lab Report: Comp. Metabolic Panel, [facility] - Chemistry sodium, serum 141 mmol/L 344-956 4404/01/26 carbon dioxide, venous blood 29.5 mmol/L 21.0-32 [...] mg/dL Encounters Code Encounter Date Provider Facility CPT-22801 Level 4 Est. Patient 14:44:33 [employer] Tesfaye pearson MD [facility] CPT-89380 Level 4 Est. Patient 13:55:29 [employer] Tesfaye pearson MD [facility] CPT-48770 Level 4 Est. Patient 17:07:34 [employer] Tesfaye pearson MD [facility] CPT-58001 Level 4 Est. Patient 13:56:54 CDT Tesfaye pearson MD [facility] CPT-04849 Level 4 Est. Patient 13:24:25 CDT Stephanie MERCADO [facility] CPT-17939 Level 4 Est. Patient 09:14:56 CDT Tesfaye pearson MD [facility] CPT-10397 Level 4 Est. Patient 18:40:25 [employer] Tesfaye pearson MD [facility] CPT-27223 Level 4 Est. Patient 18:13:07 [employer] Tesfaye pearson MD [facility] CPT-39630 Level 3 Est. Patient 10:46:32 CDT Rj cotto DO [facility] CPT-59154 Level 4 Est. Patient 20:19:25 CDT Tesfaye pearson MD [facility] CPT-91403 Level 3 Est. Patient 09:07:31 CDT Tesfaye pearson MD [facility]-17730 Level 4 Est. Patient 13:12:56 CDT Tesfaye pearson MD [facility]-85060 Level 4 Est. Patient 21:24:55 [employer] Tesfaye pearson MD [facility]-83316 Level 3 Est. Patient 13:45:04 [employer] Tesfaye pearson MD [facility] CPT-93976 Level 4 Est. Patient 13:50:45 CDT Tesfaye pearson MD [facility] CPT-36204 Level 3 Est. Patient 10:16:10 CDT Tesfaye pearson MD [facility] CPT-49914 Level 3 Est. Patient 16:36:07 [employer] Kayla jameson MD [facility]-17603 Level 4 Est. Patient 16:00:14 [employer] Tesfaye pearson MD [facility]-93560 Level 4 Est. Patient 11:02:24 [employer] Tesfaye pearson MD [facility] CPT-82101 Level 3 Est. Patient 20:21:43 [employer] Kayla jameson MD [facility]-89153 Level 3 Est. Patient 13:27:28 [employer] Kayla jameson MD [facility]-41932 Level 4 Est. Patient 15:57:17 [employer] Tesfaye pearson MD [facility] CPT-74768 Level 3 New Patient 13:25:47 CDT Tesfaye kidd MD [facility] CPT-36385 Level 3 New Patient 17:22:21 CDT Kayla angel MD [facility] Procedures Code Procedure Name Date Entry Date Standard Desc ription CPT-65099 Bone Density - XRAY USE ONLY 11:43:58 CDT 2 CPT-12460 Bone Density - XRAY USE ONLY 10:05:16 CDT 2 CPT-05619 Prv Med New Pt 40-64 yrs 18:19:25 CDT 2016 CPT-46050 Foot, right, comp min 3V - XRAY USE ONLY 10:38:34 CDT CPT-G0439 Subsequent Annual Wellness Exam 13:55:04 CDT CPT-G0438 Initial Annual Wellness Exam 11:23:17 CD T CPT-J2930 Solu Medrol 125 mg (Methyl Prednisolone Sodium Succinate) 17:29:12 [employer] CPT-71480 Abx/Therapy Injection 17:29:11 [employer] CPT-J2930 Solu Medrol 125 mg (Methyl Prednisolone Sodium Succinate) 12:34:38 [employer] CPT-J3420 Vitamin B12 1000mcg (Cyanocobalamin) 09:12:55 CDT CPT-J3420 Vitamin B12 1000mcg (Cyanocobalamin) 16:28:06 [employer] CPT-80096 Venipuncture Draw Fee 08:39:53 CDT CPT-J3420 Vitamin B12 1000mcg (Cyanocobalamin) 08:46:22 CDT CPT-11536 Abx/Therapy Injection 08:46:22 CDT CPT-J3420 Vitamin B12 1000mcg (Cyanocobalamin) 08:41:26 CDT CPT-50622 Abx/Therapy Injection 08:41:26 CDT CPT-J3420 Vitamin B12 1000mcg (Cyanocobalamin) 08:57:15 CDT CPT-46132 Abx/Therapy Injection 08:57:15 CDT CPT-J3420 Vitamin B12 1000mcg (Cyanocobalamin) 10:59:03 CDT CPT-55951 Abx/Therapy Injection 10:59:03 CDT CPT-J3420 Vitamin B12 1000mcg (Cyanocobalamin) 15:05:39 CDT CPT-11521 Abx/Therapy Injection 15:05:39 CDT CPT-J3420 Vitamin B12 1000mcg (Cyanocobalamin) 13:50:45 CDT CPT-J3420 Vitamin B12 1000mcg (Cyanocobalamin) 08:48:55 CDT CPT-22021 Abx/Therapy Injection 08:48:55 CDT CPT-J3420 Vitamin B12 1000mcg (Cyanocobalamin) 09:14:54 CDT CPT-04652 Abx/Therapy Injection 09:14:54 CDT CPT-J3420 Vitamin B12 1000mcg (Cyanocobalamin) 09:06:06 CDT CPT-01023 Abx/Therapy Injection 09:06:06 CDT CPT-J3420 Vitamin B12 1000mcg (Cyanocobalamin) 09:49:14 CDT CPT-14069 Abx/Therapy Injection 09:49:14 CDT CPT-J3420 Vitamin B12 1000mcg (Cyanocobalamin) 09:10:30 [employer] CPT-68160 Abx/Therapy Injection 09:10:30 [employer] CPT-J3420 Vitamin B12 1000mcg (Cyanocobalamin) 09:11:07 [employer] CPT-75012 Abx/Therapy Injection 09:11:07 [employer] CPT-J3420 Vitamin B12 1000mcg (Cyanocobalamin) 09:57:03 [employer] CPT-46066 Abx/Therapy Injection 09:57:03 [employer] CPT-J3420 Vitamin B12 1000mcg (Cyanocobalamin) 09:23:21 [employer] CPT-66092 Abx/Therapy Injection 09:23:21 [employer] CPT-70461 Urine Dip (Floor Use Only) 20:21:44 [employer] 201 02/12/11 CPT-53533 UA Dip Auto (Floor Use Only) 10:04:39 [employer] 2 CPT-61321 Urine Dip (Floor Use Only) 13:27:28 [employer] 201 02/12/01 CPT-11500 Bladder Scan 13:27:28 [employer] CPT-80059 Abd single AP View 14:30:51 [employer] CPT-OV Office Visit 10:15:43 CDT CPT-12492 Urine Dip (Floor Use Only) 17:22:21 CDT 201 02/09/02 CPT-39024 Bladder Scan 17:22:21 CDT
--- OUTSIDE RECORDS SUMMARY | 2020-05-05 12:07 | XMS REPORT | Clinical Summary ---
Author Author Talon, Jeri Wood Organization [facility] [employer] Address Unknown Phone Unavailable Allergies, Adverse Reactions, [...] Active Kayla tate MD NUVIGIIsrael Critical Active aKyla tate MD NAPROXEN Critical Active Kayla guadarrama [...] up to full dose 2 VENLAFAXINE HCL 44591702712 Active Chelsea Barba APRN Activ e DIFLUCAN 100 MG TAB 1 tablet by mouth daily FLU CONAZOLE [id number] No Longer Active Tesfaye Sherman MD Active BACTRIM DS 800-160 MG TAB 1 tab by mouth twice daily 2 TRIMETHOPRIM-SULFAMETHOXAZOLE 32670427219 No Longer Active Tesfaye Sherman MD Active BACTRIM DS 800-160 MG TAB 1 tab by mouth twice daily 2 TRIMETHOPRIM-SULFAMETHOXAZOLE 12752694046 No Longer Active Tesfaye Sherman MD Active DIFLUCAN 150 MG TAB 1 tablet by mouth daily FLU CONAZOLE 69349288668 No Longer Active Tesfaye Sherman MD Active BACTRIM DS 800-160 MG TAB 1 tab by mouth twice daily 2 TRIMETHOPRIM-SULFAMETHOXAZOLE 04134484640 No Longer Active Tesfaye Sherman MD Active ROPINIROLE HCL 0.25 MG ORAL TABS 1 TAB PO Q HS ROPINIROLE HCL 21092597404 Active Tesfaye Sherman MD Active CYMBALTA 30 MG CPEP 1 cap by mouth daily with 60mg DULOXETINE HCL 89301188098 Active Tesfaye Sherman MD Active CEFTIN 250 MG TAB 1 tablet twice daily x 7 days 11/19 CEFUROXIME AXETIL 47844231449 No Longer Active Tesfaye Sherman MD Acti ve DIFLUCAN 100 MG TABS 1 tablet by mouth every other day for 2 dos es FLUCONAZOLE 19944618235 No Longer Active Tesfaye Sherman MD Active DIFLUCAN 100 MG TAB 1 tablet by mouth daily X 3 DAYS 2 FLUCONAZOLE 70018583022 No Longer Active Rj Moss DO Active MIRTAZAPINE 15 MG ORAL TABS 1/2 tab by mouth at bedtime. MIRTAZAPINE 89279457556 No Longer Active Tesfaye Sherman MD Acti ve BACTRIM DS 800-160 MG TAB 1 tab by mouth twice daily 2 TRIMETHOPRIM-SULFAMETHOXAZOLE 02786246831 No Longer Active Tesfaye Sherman MD Active PRAMIPEXOLE DIHYDROCHLORIDE 0.125 MG ORAL TABS take 1 tablet po qhs for restless leg syndrome. PRAMIPEXOLE DIHYDROCHLORIDE 65810235792 No Longer Active Tesfaye Sherman MD Active MAGNESIUM 400 MG ORAL TABS 1 tab po daily MAGNESI UM 83770609071 Active Chelsea Barba APRN Active SUDAFED 24 HOUR 240 MG ORAL ML34H-[id number] 1 tab po daily PSEUDOEPHEDRINE HCL 86557452426 Active Chelsea Barba APRN A ctive CETIRIZINE HCL 5 MG TABS Take 1 tablet by mouth daily CETIRIZINE HCL 22590926865 No Longer Active Chelsea Barba APRN Acti ve TRIMETHOPRIM 100 MG TABS 1/2 qd TRIMETHOPRIM 21100376273 No Longer Active Chelsea Barba APRN Active BACTRIM DS 800-160 MG TAB 1 tab by mouth twice daily 2 TRIMETHOPRIM-SULFAMETHOXAZOLE 24925881233 No Longer Active Tesfaye Sherman MD Active BACTRIM DS 800-160 MG TAB 1 tab by mouth twice daily X 10 DAYS 2 TRIMETHOPRIM-SULFAMETHOXAZOLE 59300496452 No Longer Active Umer Sherman MD Active AMOXICILLIN 500 MG CAPS 1 cap by mouth three times a day AMOXICILLIN 43128097543 No Longer Active Adriana Arredondo Active MECLIZINE HCL 25 MG TAB one tab po qday prn dizziness MECLIZINE HCL 95080981388 Active Tesfaye Sherman MD Active B-12 1000 MCG ORAL LOZG 1 tab po daily CYANOCOBAL STANTON 71421586038 Active Tesfaye Sherman MD Active VITAMIN D3 2000 UNIT TABS 1 daily, for vitamin D deficiency 2014 CHOLECALCIFEROL 12769461336 No Longer Active Tesfaye Sherman MD Active TIZANIDINE HCL 2 MG TABS take 1-2 tablet by mouth ev at bedtime at 9pm PRN TIZANIDINE HCL 41021140823 Active Tesfaye Owusu Active ZITHROMAX 250 MG TAB 2 po today, then 1 po q days 2-5 AZITHROMYCIN 45060263270 No Longer Active Tesfaye Sherman MD Acti ve BACTRIM DS 800-160 MG TAB 1 tab by mouth twice daily 2 TRIMETHOPRIM-SULFAMETHOXAZOLE 56099691231 No Longer Active Tesfaye Sherman MD Active PRELIEF 340 (65-50) MG (CA-P) ORAL TABS CALCIUM GLYCEROPHOSPHATE 46358310635 Active Tesfaye Sherman MD Active [facility] NIACIN FLUSH FREE 400-100 MG CAPS 1 daily NIACIN-INOSITOL 22800975052 Active Kayla Cooper MD Active DIFLUCAN 150 MG TABS 1 qd FLUCONAZOLE 04867 923526 No Longer Active Kayla Cooper MD Active FLUTICASONE PROPIONATE 50 MCG/ACT SUSP 1 spray each nostril twice daily FLUTICASONE PROPIONATE 22431748066 Active Tesfaye armenta MD Active LOVASTATIN 20 MG TABS Take 1 tablet by mouth daily LOVASTATIN 44011925949 No Longer Active Tesfaye Sherman MD Active MELOXICAM 7.5 MG TABS 1 tablet by mouth daily Gisela ELOXICAM 80642364442 No Longer Active Tesfaye Sherman MD Active GABAPENTIN 300 MG CAPS Take two tablets by mouth every evening GABAPENTIN 50787342638 No Longer Active Edith Burch MD Active OXYCODONE-ACETAMINOPHEN 5-325 MG TABS Take one tablet by mouth every 6 hours as needed. Max 12 tabs/day as needed OXYCODONE-ACETAMINOP HEN 89279749941 Active Tesfaye Sherman MD Active CYMBALTA 60 MG CPEP Take 1 tablet by mouth daily D ULOXETINE HCL 49401898464 Active Kayla Cooper MD Active CLONAZEPAM 0.5 MG TABS Take one tablet in the morning and 1.5 table t at 7pm CLONAZEPAM 64019278868 Active Kayla Cooper MD Active BACLOFEN 10 MG TABS Take one tablet by mouth three times a day BACLOFEN 76827021947 Active Kayla Cooper MD Active GABAPENTIN 300 MG CAPS Take two tablets by mouth every evening GABAPENTIN 300 MG CAPS 929543 GABAPENTIN Inactive MELOXICAM 7.5 MG TABS 1 tablet by mouth daily MELOXICAM 7.5 MG TABS 890870 MELOXICAM Inactive LOVASTATIN 20 MG TABS Take 1 tablet by mouth daily 201 02/12/20 LOVASTATIN 20 MG TABS 220675 LOVASTATIN Inactive DIFLUCAN 150 MG TABS 1 qd DIFLUCAN 150 MG T ABS 455935 FLUCONAZOLE Inactive VITAMIN D3 2000 UNIT TABS 1 daily, for vitamin D deficiency 2014 VITAMIN D3 2000 UNIT TABS CHOLECALCIFEROL Inacti ve AMOXICILLIN 500 MG CAPS 1 cap by mouth three times a day AMOXICILLIN 500 MG CAPS 712386 AMOXICILLIN Inactive BACTRIM DS 800-160 MG TAB 1 tab by mouth twice daily X 10 DAYS 2 BACTRIM DS 800-160 MG TAB 19830105 TRIMETHOPRIM-SULFAMETH OXAZOLE Inactive TRIMETHOPRIM 100 MG TABS 1/2 qd TRIMETHOPRI M 100 MG TABS 779637 TRIMETHOPRIM Inactive CETIRIZINE HCL 5 MG TABS Take 1 tablet by mouth daily CETIRIZINE HCL 5 MG TABS 9267879 CETIRIZINE HCL Inactive PRAMIPEXOLE DIHYDROCHLORIDE 0.125 MG ORAL TABS take 1 tablet po qhs for restless leg syndrome. PRAMIPEXOLE DIHYDROC HLORIDE 0.125 MG ORAL TABS 438880 PRAMIPEXOLE DIHYDROCHLORIDE Inactive MIRTAZAPINE 15 MG ORAL TABS 1/2 tab by mouth at bedtime. MIRTAZAPINE 15 MG ORAL TABS 272189 MIRTAZAPINE Inactive DIFLUCAN 100 MG TAB 1 tablet by mouth daily X 3 DAYS 2 DIFLUCAN 100 MG TAB 085886 FLUCONAZOLE Inactive DIFLUCAN 100 MG TABS 1 tablet by mouth every other day for 2 dos es DIFLUCAN 100 MG TABS 377959 FLUCONAZOLE Inactive CEFTIN 250 MG TAB 1 tablet twice daily x 7 days 11/19 CEFTIN 250 MG TAB 340528 CEFUROXIME AXETIL Inactive BACTRIM DS 800-160 MG TAB 1 tab by mouth twice daily 2 BACTRIM DS 800-160 MG TAB 19830105 TRIMETHOPRIM-SULFAMETHOXAZOLE Inac tive ZITHROMAX 250 MG TAB 2 po today, then 1 po q days 2-5 ZITHROMAX 250 MG TAB 5812332 AZITHROMYCIN Inactive BACTRIM DS 800-160 MG TAB [...] daily 2 BACTRIM DS 800-160 MG TAB 606935 TRIMETHOPRIM-SULFAMETHOXAZOLE Inac tive DIFLUCAN 100 MG TAB 1 tablet by mouth daily DIFLUCAN 100 MG TAB 470618 FLUCONAZOLE Inactive Advance Directives Directive Description Start [...] mg/dL Encounters Code Encounter Date Provider Facility CPT-[id number] Level 4 Est. Patient 09:14:56 CDT Tesfaye pearson MD [facility] CPT-28682 Level 4 Est. Patient 18:40:25 CONCRETE BOOM PUMP OPERATOR Tesfaye pearson MD [facility] CPT-19163 Level 4 Est. Patient 18:13:07 CONCRETE BOOM PUMP OPERATOR Tesfaye pearson MD [facility] CPT-38898 Level 3 Est. Patient 10:46:32 CDT Rj cotto DO [facility] CPT-40395 Level 4 Est. Patient 20:19:25 CDT Tesfaye pearson MD [facility] CPT-70250 Level 3 Est. Patient 09:07:31 CDT Tesfaye pearson MD [facility] CPT-73150 Level 4 Est. Patient 13:12:56 CDT Tesfaye pearson MD [facility]-46957 Level 4 Est. Patient 21:24:55 CONCRETE BOOM PUMP OPERATOR Tesfaye pearson MD [facility] CPT-42279 Level 3 Est. Patient 13:45:04 CONCRETE BOOM PUMP OPERATOR Tesfaye pearson MD [facility] CPT-47679 Level 4 Est. Patient 13:50:45 CDT Tesfaye pearson MD [facility] CPT-01399 Level 3 Est. Patient 10:16:10 CDT Tesfaye pearson MD [facility] CPT-48724 Level 3 Est. Patient 16:36:07 CONCRETE BOOM PUMP OPERATOR Kayla jameson MD [facility] CPT-39398 Level 4 Est. Patient 16:00:14 CONCRETE BOOM PUMP OPERATOR Tesfaye pearson MD [facility] CPT-58013 Level 4 Est. Patient 11:02:24 CONCRETE BOOM PUMP OPERATOR Tesfaye pearson MD [facility] CPT-82791 Level 3 Est. Patient 20:21:43 CONCRETE BOOM PUMP OPERATOR Kayla jameson MD [facility] CPT-67949 Level 3 Est. Patient 13:27:28 CONCRETE BOOM PUMP OPERATOR Kayla jameson MD [facility] CPT-44966 Level 4 Est. Patient 15:57:17 CONCRETE BOOM PUMP OPERATOR Tesfaye pearson MD [facility] CPT-12127 Level 3 New Patient 13:25:47 CDT Tesfaye kidd MD [facility] CPT-86111 Level 3 New Patient 17:22:21 CDT J John angel MD [facility] Procedures Code Procedure Name Date Entry Date Standard Desc ription CPT-97816 Foot, right, comp min 3V - XRAY USE ONLY 10:38:34 CDT CPT-G0439 Subsequent Annual Wellness Exam 13:55:04 CDT CPT-G0438 Initial Annual Wellness Exam 11:23:17 CD T CPT-J2930 Solu Medrol 125 mg (Methyl Prednisolone Sodium Succinate) 17:29:12 CONCRETE BOOM PUMP OPERATOR CPT-98493 Abx/Therapy Injection 17:29:11 CONCRETE BOOM PUMP OPERATOR CPT-J2930 Solu Medrol 125 mg (Methyl Prednisolone Sodium Succinate) 12:34:38 CONCRETE BOOM PUMP OPERATOR CPT-J3420 Vitamin B12 1000mcg (Cyanocobalamin) 09:12:55 CDT CPT-J3420 Vitamin B12 1000mcg (Cyanocobalamin) 16:28:06 CONCRETE BOOM PUMP OPERATOR CPT-45753 Venipuncture Draw Fee 08:39:53 CDT CPT-J3420 Vitamin B12 1000mcg (Cyanocobalamin) 08:46:22 CDT CPT-18411 Abx/Therapy Injection 08:46:22 CDT CPT-J3420 Vitamin B12 1000mcg (Cyanocobalamin) 08:41:26 CDT CPT-03782 Abx/Therapy Injection 08:41:26 CDT CPT-J3420 Vitamin B12 1000mcg (Cyanocobalamin) 08:57:15 CDT CPT-24524 Abx/Therapy Injection 08:57:15 CDT CPT-J3420 Vitamin B12 1000mcg (Cyanocobalamin) 10:59:03 CDT CPT-37874 Abx/Therapy Injection 10:59:03 CDT CPT-J3420 Vitamin B12 1000mcg (Cyanocobalamin) 15:05:39 CDT CPT-60425 Abx/Therapy Injection 15:05:39 CDT CPT-J3420 Vitamin B12 1000mcg (Cyanocobalamin) 13:50:45 CDT CPT-J3420 Vitamin B12 1000mcg (Cyanocobalamin) 08:48:55 CDT CPT-08714 Abx/Therapy Injection 08:48:55 CDT CPT-J3420 Vitamin B12 1000mcg (Cyanocobalamin) 09:14:54 CDT CPT-71433 Abx/Therapy Injection 09:14:54 CDT CPT-J3420 Vitamin B12 1000mcg (Cyanocobalamin) 09:06:06 CDT CPT-27099 Abx/Therapy Injection 09:06:06 CDT CPT-J3420 Vitamin B12 1000mcg (Cyanocobalamin) 09:49:14 CDT CPT-85625 Abx/Therapy Injection 09:49:14 CDT CPT-J3420 Vitamin B12 1000mcg (Cyanocobalamin) 09:10:30 CONCRETE BOOM PUMP OPERATOR CPT-00320 Abx/Therapy Injection 09:10:30 CONCRETE BOOM PUMP OPERATOR CPT-J3420 Vitamin B12 1000mcg (Cyanocobalamin) 09:11:07 CONCRETE BOOM PUMP OPERATOR CPT-30655 Abx/Therapy Injection 09:11:07 CONCRETE BOOM PUMP OPERATOR CPT-J3420 Vitamin B12 1000mcg (Cyanocobalamin) 09:57:03 CONCRETE BOOM PUMP OPERATOR CPT-33899 Abx/Therapy Injection 09:57:03 CONCRETE BOOM PUMP OPERATOR CPT-J3420 Vitamin B12 1000mcg (Cyanocobalamin) 09:23:21 CONCRETE BOOM PUMP OPERATOR CPT-47119 Abx/Therapy Injection 09:23:21 CONCRETE BOOM PUMP OPERATOR CPT-45121 Urine Dip (Floor Use Only) 20:21:44 CONCRETE BOOM PUMP OPERATOR 201 02/12/11 CPT-96839 UA Dip Auto (Floor Use Only) 10:04:39 CONCRETE BOOM PUMP OPERATOR 2 CPT-60099 Urine Dip (Floor Use Only) 13:27:28 CONCRETE BOOM PUMP OPERATOR 201 02/12/01 CPT-23938 Bladder Scan 13:27:28 CONCRETE BOOM PUMP OPERATOR CPT-21562 Abd single AP View 14:30:51 CONCRETE BOOM PUMP OPERATOR CPT-OV Office Visit 10:15:43 CDT CPT-69380 Urine Dip (Floor Use Only) 17:22:21 CDT 201 02/09/02 CPT-33805 Bladder Scan 17:22:21 CDT
--- OUTSIDE RECORDS SUMMARY | 2020-05-05 12:07 | XMS REPORT | Clinical Summary ---
Author Author Jeri Hanley Organization [employer] Address Unknown Phone Unavailable Allergies, Adverse Reactions, [...] day as needed for dizziness MECLIZINE HCL 72773895903 Active Laurence Raida Active DIFLUCAN 100 MG ORAL TABLET 1 tablet by mouth daily FLUCONAZOLE 26201843185 Active Laurence Raida Active AMOXICILLIN 500 MG ORAL CAPSULE 1 cap by mouth three times a day AMOXICILLIN 55972873281 No Longer Active Laurence Raida Acti ve VENLAFAXINE HCL 75 MG ORAL TABLET 1 am 1/2 at noon VENLAFAXINE HCL 70940461105 Active Tesfaye Sherman MD Active DIFLUCAN 100 MG ORAL TABLET 1 tablet by mouth daily 20 19/08/26 FLUCONAZOLE 61377669504 No Longer Active Tesfaye Sherman MD Acti ve BACTRIM DS 800-160 MG ORAL TABLET 1 tab by mouth twice daily 201 05/10/28 TRIMETHOPRIM-SULFAMETHOXAZOLE 27503416071 No Longer Active Fer Dominguez Active FOSAMAX 70 MG ORAL TABLET 1 po qweek. Take 30min prio r to first food/drink. Avoid lying down x 1 hour. ALENDRONATE SODIUM 60005024 144 No Longer Active Laurence Dominguez Active REPHRESH PRO-B ORAL CAPSULE 1 tablet daily LACT OBACILLUS 85764087599 Active Edith Burch MD Active CYMBALTA 60 MG ORAL CAPSULE DELAYED RELEASE PARTICLES Take 1 tablet by mouth daily DULOXETINE HCL 17474179334 No Longer Active Edith Burch MD Active CYMBALTA 30 MG ORAL CAPSULE DELAYED RELEASE PARTICLES 1 cap by mouth daily with 60mg DULOXETINE HCL 39047004423 No Longer Active Jordan Burch MD Active FISH OIL 1000 MG ORAL CAPSULE DELAYED RELEASE 1 pill b y mouth daily for cholesterol OMEGA-3 FATTY ACIDS 07916852549 Active Cee Jaffe LPN Active RED YEAST RICE 600 MG ORAL CAPSULE 1 pill by mouth daily RED YEAST RICE EXTRACT 65705971002 Active Rosa Jaffe LPN Activ e DIFLUCAN 100 MG ORAL TABLET 1 tablet by mouth daily 20 19/03/05 FLUCONAZOLE 87463741791 No Longer Active Tesfaye Sherman MD Acti ve BACTRIM DS 800-160 MG ORAL TABLET 1 tab by mouth twice daily 201 05/06/28 TRIMETHOPRIM-SULFAMETHOXAZOLE 55406307034 No Longer Active Umer Sherman MD Active BACTRIM DS 800-160 MG ORAL TABLET 1 tab by mouth twice daily 201 05/04/15 TRIMETHOPRIM-SULFAMETHOXAZOLE 70892544373 No Longer Active Umer Sherman MD Active DIFLUCAN 150 MG ORAL TABLET 1 tablet by mouth daily 20 18/09/20 FLUCONAZOLE 73574137362 No Longer Active Tesfaye Sherman MD Acti ve BACTRIM DS 800-160 MG ORAL TABLET 1 tab by mouth twice daily 201 04/13/17 TRIMETHOPRIM-SULFAMETHOXAZOLE 70715245088 No Longer Active Umer Sherman MD Active ROPINIROLE HCL 0.25 MG ORAL TABLET 1 TAB PO Q HS ROPINIROLE HCL 77850233657 Active Tesfaye Sherman MD Active CEFTIN 250 MG ORAL TABLET 1 tablet twice daily x 7 days CEFUROXIME AXETIL 62194737088 No Longer Active Tesfaye Sherman MD Active DIFLUCAN 100 MG ORAL TABLET 1 tablet by mouth every other da y for 2 doses FLUCONAZOLE 35374529571 No Longer Active Tesfaye barron MD Active DIFLUCAN 100 MG ORAL TABLET 1 tablet by mouth daily X 3 DAYS 201 04/09/01 FLUCONAZOLE 01065928201 No Longer Active Rj Moss DO Ac tive MIRTAZAPINE 15 MG ORAL TABLET 1/2 tab by mouth at bedtime. 03/13 MIRTAZAPINE 24183083581 No Longer Active Tesfaye Sherman MD Active BACTRIM DS 800-160 MG ORAL TABLET 1 tab by mouth twice daily 201 04/09/01 TRIMETHOPRIM-SULFAMETHOXAZOLE 62544726952 No Longer Active Umer Sherman MD Active PRAMIPEXOLE DIHYDROCHLORIDE 0.125 MG ORAL TABLET take 1 tablet po qhs for restless leg syndrome. PRAMIPEXOLE DIHYDROCHLORI DE 84566659595 No Longer Active Tesfaye Sherman MD Active MAGNESIUM 400 MG ORAL TABLET 1 tab po daily MAGNE SIUM 87521257825 Active Chelsea Barba APRN Active SUDAFED 24 HOUR 240 MG ORAL TABLET EXTENDED RELEASE 24 HOUR 1 tab po daily PSEUDOEPHEDRINE HCL 47113116926 Active Chelsea NAPOLES RN Active CETIRIZINE HCL 5 MG ORAL TABLET Take 1 tablet by mouth daily CETIRIZINE HCL 80084383752 No Longer Active Chelsea Barba APRN Ac tive TRIMETHOPRIM 100 MG ORAL TABLET 1/2 qd TRIM ETHOPRIM 49388265626 No Longer Active Chelsea Barba APRN Active BACTRIM DS 800-160 MG ORAL TABLET 1 tab by mouth twice daily 201 04/04/11 TRIMETHOPRIM-SULFAMETHOXAZOLE 25395355673 No Longer Active Umer Sherman MD Active BACTRIM DS 800-160 MG ORAL TABLET 1 tab by mouth twice daily X 10 DAYS TRIMETHOPRIM-SULFAMETHOXAZOLE 97839250051 No Longer Active Tesfaye Sherman MD Active AMOXICILLIN 500 MG ORAL CAPSULE 1 cap by mouth three times a day AMOXICILLIN 02039594909 No Longer Active Adriana Arnulfo Active MECLIZINE HCL 25 MG ORAL TABLET one tab po qday prn dizziness 09/08 MECLIZINE HCL 54363582817 Active Tesafye Sherman MD Active B-12 1000 MCG ORAL LOZENGE 1 tab po daily CYANO COBALAMIN 77507805872 Active Tesfaye Sherman MD Active VITAMIN D3 2000 UNIT ORAL TABLET 1 daily, for vitamin D deficien cy CHOLECALCIFEROL 96265064734 No Longer Active Tesfaye Sherman MD Active TIZANIDINE HCL 2 MG ORAL TABLET take 1-2 tablet by mo ut every day at bedtime at 9pm PRN TIZANIDINE HCL 47364004805 Active Tesfaye hewitt MD Active ZITHROMAX 250 MG ORAL TABLET 2 po today, then 1 po q days 2-5 20 15/02/10 AZITHROMYCIN 97999218527 No Longer Active Tesfaye Sherman MD Active BACTRIM DS 800-160 MG ORAL TABLET 1 tab by mouth twice daily 201 03/03/23 TRIMETHOPRIM-SULFAMETHOXAZOLE 97853206581 No Longer Active Umer Sherman MD Active PRELIEF 340 (65-50) MG (CA-P) ORAL TABLET CALCIUM GLYCEROPHOSPHATE 17585491496 Active Tesfaye Sherman MD Acti ve [facility] NIACIN FLUSH FREE 400-100 MG ORAL CAPSULE 1 daily NIACIN-INOSITOL 57789293051 Active Kayla Cooper MD Activ e DIFLUCAN 150 MG ORAL TABLET 1 qd FLUCONAZOL E 23016663448 No Longer Active Kayla Cooper MD Active FLUTICASONE PROPIONATE 50 MCG/ACT NASAL SUSPENSION 1 spray each nostril twice daily FLUTICASONE PROPIONATE 46207872533 Active Umer Sherman MD Active LOVASTATIN 20 MG ORAL TABLET Take 1 tablet by mouth daily LOVASTATIN 93572045369 No Longer Active Tesfaye Sherman MD Acti ve MELOXICAM 7.5 MG ORAL TABLET 1 tablet by mouth daily 2 MELOXICAM 90266281939 No Longer Active Tesfaye Sherman MD Acti ve GABAPENTIN 300 MG ORAL CAPSULE Take two tablets by mouth every e vening GABAPENTIN 41590150105 No Longer Active Edith Burch MD A ctive OXYCODONE-ACETAMINOPHEN 5-325 MG ORAL TABLET Take one tablet by mouth every 6 hours as needed. Max 12 tabs/day as needed OXYCO DONE-ACETAMINOPHEN 42117904115 Active Tesfaye Sherman MD Active CLONAZEPAM 0.5 MG ORAL TABLET Take one tablet in the m orning and 1.5 tablet at 7pm CLONAZEPAM 08327365896 Active Kayla Cooper MD Active BACLOFEN 10 MG ORAL TABLET Take one tablet by mouth three times a d ay BACLOFEN 10314303449 Active Kayla Cooper MD Active GABAPENTIN 300 MG ORAL CAPSULE Take two tablets by mouth every e vening GABAPENTIN 300 MG ORAL CAPSULE 667089 GABAPENTIN I nactive MELOXICAM 7.5 MG ORAL TABLET 1 tablet by mouth daily 2 MELOXICAM 7.5 MG ORAL TABLET 603390 MELOXICAM Inactive LOVASTATIN 20 MG ORAL TABLET Take 1 tablet by mouth daily LOVASTATIN 20 MG ORAL TABLET 173736 LOVASTATIN Inactive DIFLUCAN 150 MG ORAL TABLET 1 qd DIFLUCAN 150 MG ORAL TABLET 223930 FLUCONAZOLE Inactive VITAMIN D3 2000 UNIT ORAL TABLET 1 daily, for vitamin D deficien cy VITAMIN D3 2000 UNIT ORAL TABLET CHOLECALCIFEROL Inactive AMOXICILLIN 500 MG ORAL CAPSULE 1 cap by mouth three times a day AMOXICILLIN 500 MG ORAL CAPSULE 486773 AMOXICILLIN Inactive BACTRIM DS 800-160 MG ORAL TABLET 1 tab by mouth twice daily X 10 DAYS BACTRIM DS 800-160 MG ORAL TABLET 19830105 TRIMETHOPRIM-SULFAMETHOXAZOLE Inactive TRIMETHOPRIM 100 MG ORAL TABLET 1/2 qd 7 TRIMETHOPRIM 100 MG ORAL TABLET 049268 TRIMETHOPRIM Inactive CETIRIZINE HCL 5 MG ORAL TABLET Take 1 tablet by mouth daily CETIRIZINE HCL 5 MG ORAL TABLET 1099368 CETIRIZINE HCL Inactive PRAMIPEXOLE DIHYDROCHLORIDE 0.125 MG ORAL TABLET take 1 tablet po qhs for restless leg syndrome. PRAMIPEXOLE DIHYD ROCHLORIDE 0.125 MG ORAL TABLET 524337 PRAMIPEXOLE DIHYDROCHLORIDE Inactive MIRTAZAPINE 15 MG ORAL TABLET 1/2 tab by mouth at bedtime. 03/13 MIRTAZAPINE 15 MG ORAL TABLET 059545 MIRTAZAPINE In active DIFLUCAN 100 MG ORAL TABLET 1 tablet by mouth daily X 3 DAYS 201 04/09/01 DIFLUCAN 100 MG ORAL TABLET 166700 FLUCONAZOLE Inac tive DIFLUCAN 100 MG ORAL TABLET 1 tablet by mouth every other da y for 2 doses DIFLUCAN 100 MG ORAL TABLET 971756 FLUCONAZOLE Inactive CEFTIN 250 MG ORAL TABLET 1 tablet twice daily x 7 days CEFTIN 250 MG ORAL TABLET 113724 CEFUROXIME AXETIL Inactive CYMBALTA 30 MG ORAL CAPSULE DELAYED RELEASE PARTICLES 1 cap by mouth daily with 60mg CYMBALTA 30 MG ORAL CAPSULE DELAYED RELEASE PARTICLES 592617 DULOXETINE HCL Inactive CYMBALTA 60 MG ORAL CAPSULE DELAYED RELEASE PARTICLES Take 1 tablet by mouth daily CYMBALTA 60 MG ORAL CAPSULE DELAYED RELEA SE PARTICLES 777739 DULOXETINE HCL Inactive FOSAMAX 70 MG ORAL TABLET 1 po qweek. Take 30min prio r to first food/drink. Avoid lying down x 1 hour. FOSAMAX 70 MG ORAL TA BLET 660417 ALENDRONATE SODIUM Inactive DIFLUCAN 100 MG ORAL TABLET 1 tablet by mouth daily 19/08/26 DIFLUCAN 100 MG ORAL TABLET 184422 FLUCONAZOLE Inactive BACTRIM DS 800-160 MG ORAL TABLET 1 tab by mouth twice daily 201 03/03/23 BACTRIM DS 800-160 MG ORAL TABLET 193954 TRIMETHOPRIM-SULFAMETHOXAZOLE Inactive ZITHROMAX 250 MG ORAL TABLET 2 po today, then 1 po q days 2-5 20 15/02/10 ZITHROMAX 250 MG ORAL TABLET 797962 AZITHROMYCIN Mayela ctive BACTRIM DS 800-160 MG [...] 20 19/03/05 DIFLUCAN 100 MG ORAL TABLET 914507 FLUCONAZOLE Inactive BACTRIM DS 800-160 MG ORAL TABLET 1 tab by mouth twice daily 201 05/10/28 BACTRIM DS 800-160 MG ORAL TABLET 19830105 TRIMETHOPRIM-SULFAMETHOXAZOLE Inactive AMOXICILLIN 500 MG ORAL CAPSULE 1 cap by mouth three times a day AMOXICILLIN 500 MG ORAL CAPSULE 423507 AMOXICILLIN Inactive Advance Directives Directive Description Start Date PERMISSION TO SHARE DISCUSSED WITH PATIENT -- NO DECISION MADE DURABLE POWER OF [employer] SPECIALIST FOR HEALTHCARE Vital Signs Date Name [...] ... - Chemistry sodium, serum 144 mmol/L 443-579 5320/06/14 carbon dioxide, venous blood 29.4 mmol/L 21.0-32 .0 potassium, serum 4.4 mmol/L 3.5-5.2 chloride, serum 108 mmol/L 98-107 blood glucose 100 mg/dL 65-110 urea nitrogen, blood 9 mg/dL 7-18 creatinine, serum 0.67 mg/dL 0.55-1.30 alanine aminotransferase (SGPT), serum 24 U/L 12-78 aspartate aminotransferase (SGOT), serum 15 U/L 15-37 calcium, serum 9.3 mg/dL 8.5-10.1 bilirubin, serum, total 0.50 mg/dL 0.00-1.00 cholesterol, serum 268 mg/dL 888-820 4779/06/14 triglyceride, serum, fasting 126 mg/dL 30-200 HDL [...] mg/dL Encounters Code Encounter Date Provider Facility CPT-61475 Level 4 Est. Patient 17:07:34 ORE SAMPLER Tesfaye pearson MD [facility] CPT-69975 Level 4 Est. Patient 13:56:54 CDT Tesfaye pearson MD [facility] CPT-93341 Level 4 Est. Patient 13:24:25 CDT Stephanie MERCADO [facility] CPT-27368 Level 4 Est. Patient 09:14:56 CDT Tesfaye pearson MD [facility] CPT-77896 Level 4 Est. Patient 18:40:25 ORE SAMPLER Tesfaye pearson MD [facility] CPT-97492 Level 4 Est. Patient 18:13:07 ORE SAMPLER Tesfaye pearson MD [facility] CPT-67032 Level 3 Est. Patient 10:46:32 CDT Rj cotto DO [facility] CPT-10890 Level 4 Est. Patient 20:19:25 CDT Tesfaye pearson MD [facility] CPT-43960 Level 3 Est. Patient 09:07:31 CDT Tesfaye pearson MD [facility]-09414 Level 4 Est. Patient 13:12:56 CDT Tesfaye pearson MD [facility]-42593 Level 4 Est. Patient 21:24:55 ORE SAMPLER Tesfaye pearson MD [facility]-88639 Level 3 Est. Patient 13:45:04 ORE SAMPLER Tesfaye pearson MD [facility] CPT-41834 Level 4 Est. Patient 13:50:45 CDT Tesfaye pearson MD [facility] CPT-34362 Level 3 Est. Patient 10:16:10 CDT Tesfaye pearson MD [facility] CPT-52434 Level 3 Est. Patient 16:36:07 ORE SAMPLER Kayla jameson MD [facility]-66320 Level 4 Est. Patient 16:00:14 ORE SAMPLER Tesfaye pearson MD [facility]-74460 Level 4 Est. Patient 11:02:24 ORE SAMPLER Tesfaye pearson MD [facility]-83586 Level 3 Est. Patient 20:21:43 ORE SAMPLER Kayla jameson MD [facility]-04279 Level 3 Est. Patient 13:27:28 ORE SAMPLER Kayla jameson MD [facility]-94329 Level 4 Est. Patient 15:57:17 ORE SAMPLER Tesfaye pearson MD [facility] CPT-28977 Level 3 New Patient 13:25:47 CDT Tesfaye kidd MD [facility] CPT-55472 Level 3 New Patient 17:22:21 CDT Kayla angel MD [facility] Procedures Code Procedure Name Date Entry Date Standard Desc ription CPT-78313 Bone Density - XRAY USE ONLY 11:43:58 CDT 2 017/07/17 CPT-97873 Bone Density - XRAY USE ONLY 10:05:16 CDT 2 CPT-91460 Prv Med New Pt 40-64 yrs 18:19:25 CDT 2016 CPT-14082 Foot, right, comp min 3V - XRAY USE ONLY 10:38:34 CDT CPT-G0439 Subsequent Annual Wellness Exam 13:55:04 CDT CPT-G0438 Initial Annual Wellness Exam 11:23:17 CD T CPT-J2930 Solu Medrol 125 mg (Methyl Prednisolone Sodium Succinate) 17:29:12 ORE SAMPLER CPT-64154 Abx/Therapy Injection 17:29:11 ORE SAMPLER CPT-J2930 Solu Medrol 125 mg (Methyl Prednisolone Sodium Succinate) 12:34:38 ORE SAMPLER CPT-J3420 Vitamin B12 1000mcg (Cyanocobalamin) 09:12:55 CDT CPT-J3420 Vitamin B12 1000mcg (Cyanocobalamin) 16:28:06 ORE SAMPLER CPT-13842 Venipuncture Draw Fee 08:39:53 CDT CPT-J3420 Vitamin B12 1000mcg (Cyanocobalamin) 08:46:22 CDT CPT-66224 Abx/Therapy Injection 08:46:22 CDT CPT-J3420 Vitamin B12 1000mcg (Cyanocobalamin) 08:41:26 CDT CPT-65793 Abx/Therapy Injection 08:41:26 CDT CPT-J3420 Vitamin B12 1000mcg (Cyanocobalamin) 08:57:15 CDT CPT-75113 Abx/Therapy Injection 08:57:15 CDT CPT-J3420 Vitamin B12 1000mcg (Cyanocobalamin) 10:59:03 CDT CPT-58049 Abx/Therapy Injection 10:59:03 CDT CPT-J3420 Vitamin B12 1000mcg (Cyanocobalamin) 15:05:39 CDT CPT-41740 Abx/Therapy Injection 15:05:39 CDT CPT-J3420 Vitamin B12 1000mcg (Cyanocobalamin) 13:50:45 CDT CPT-J3420 Vitamin B12 1000mcg (Cyanocobalamin) 08:48:55 CDT CPT-54687 Abx/Therapy Injection 08:48:55 CDT CPT-J3420 Vitamin B12 1000mcg (Cyanocobalamin) 09:14:54 CDT CPT-65211 Abx/Therapy Injection 09:14:54 CDT CPT-J3420 Vitamin B12 1000mcg (Cyanocobalamin) 09:06:06 CDT CPT-03306 Abx/Therapy Injection 09:06:06 CDT CPT-J3420 Vitamin B12 1000mcg (Cyanocobalamin) 09:49:14 CDT CPT-35608 Abx/Therapy Injection 09:49:14 CDT CPT-J3420 Vitamin B12 1000mcg (Cyanocobalamin) 09:10:30 ORE SAMPLER CPT-18210 Abx/Therapy Injection 09:10:30 ORE SAMPLER CPT-J3420 Vitamin B12 1000mcg (Cyanocobalamin) 09:11:07 ORE SAMPLER CPT-22401 Abx/Therapy Injection 09:11:07 ORE SAMPLER CPT-J3420 Vitamin B12 1000mcg (Cyanocobalamin) 09:57:03 ORE SAMPLER CPT-46775 Abx/Therapy Injection 09:57:03 ORE SAMPLER CPT-J3420 Vitamin B12 1000mcg (Cyanocobalamin) 09:23:21 ORE SAMPLER CPT-07296 Abx/Therapy Injection 09:23:21 ORE SAMPLER CPT-95225 Urine Dip (Floor Use Only) 20:21:44 ORE SAMPLER 201 02/12/11 CPT-27102 UA Dip Auto (Floor Use Only) 10:04:39 ORE SAMPLER 2 CPT-01085 Urine Dip (Floor Use Only) 13:27:28 ORE SAMPLER 201 02/12/01 CPT-20264 Bladder Scan 13:27:28 ORE SAMPLER CPT-89114 Abd single AP View 14:30:51 ORE SAMPLER CPT-OV Office Visit 10:15:43 CDT CPT-78906 Urine Dip (Floor Use Only) 17:22:21 CDT 201 02/09/02 CPT-21778 Bladder Scan 17:22:21 CDT
--- OUTSIDE RECORDS SUMMARY | 2020-05-05 12:08 | XMS REPORT | Clinical Summary ---
Author Author Jeri Hanley Organization [facility] Address Unknown Phone Unavailable Allergies, Adverse Reactions, [...] Generic Name NDC Status Provider Patient Instruction FISH OIL 1000 MG CPDR 1 pill by mouth daily for cholesterol 04/18 OMEGA- 3 FATTY ACIDS 25353483984 Active Rosa Jaffe LPN Acti ve RED YEAST RICE 600 MG CAPS 1 pill by mouth daily RED YEAST RICE EXTRACT 01496574719 Active Rosa Jaffe LPN Activ e VENLAFAXINE HCL 37.5 MG TABS 1/4 tab po titrating up to full dose 2 VENLAFAXINE HCL 24856447959 Active Chelsea Barba APRN Activ e DIFLUCAN 100 MG TAB 1 tablet by mouth daily FLU CONAZOLE 21594956552 No Longer Active Tesfaye Sherman MD Active BACTRIM DS 800-160 MG TAB 1 tab by mouth twice daily 2 TRIMETHOPRIM-SULFAMETHOXAZOLE 55115129610 No Longer Active Tesfaye Sherman MD Active BACTRIM DS 800-160 MG TAB 1 tab by mouth twice daily 2 TRIMETHOPRIM-SULFAMETHOXAZOLE 40414985267 No Longer Active Tesfaye Sherman MD Active DIFLUCAN 150 MG TAB 1 tablet by mouth daily FLU CONAZOLE 15251449204 No Longer Active Tesfaye Sherman MD Active BACTRIM DS 800-160 MG TAB 1 tab by mouth twice daily 2 TRIMETHOPRIM-SULFAMETHOXAZOLE 71869675451 No Longer Active Tesfaye Sherman MD Active ROPINIROLE HCL 0.25 MG ORAL TABS 1 TAB PO Q HS ROPINIROLE HCL 72431322582 Active Tesfaye Sherman MD Active CYMBALTA 30 MG CPEP 1 cap by mouth daily with 60mg DULOXETINE HCL 66591365675 Active Tesfaye Sherman MD Active CEFTIN 250 MG TAB 1 tablet twice daily x 7 days 11/19 CEFUROXIME AXETIL 03882881376 No Longer Active Tesfaye Sherman MD Acti ve DIFLUCAN 100 MG TABS 1 tablet by mouth every other day for 2 dos es FLUCONAZOLE 40093713759 No Longer Active Tesfaye Sherman MD Active DIFLUCAN 100 MG TAB 1 tablet by mouth daily X 3 DAYS 2 FLUCONAZOLE 55997897451 No Longer Active Rj Moss DO Active MIRTAZAPINE 15 MG ORAL TABS 1/2 tab by mouth at bedtime. MIRTAZAPINE 51482613674 No Longer Active Tesfaye Sherman MD Acti ve BACTRIM DS 800-160 MG TAB 1 tab by mouth twice daily 2 TRIMETHOPRIM-SULFAMETHOXAZOLE 42421137928 No Longer Active Tesfaye Sherman MD Active PRAMIPEXOLE DIHYDROCHLORIDE 0.125 MG ORAL TABS take 1 tablet po qhs for restless leg syndrome. PRAMIPEXOLE DIHYDROCHLORIDE 85684365850 No Longer Active Tesfaye Sherman MD Active MAGNESIUM 400 MG ORAL TABS 1 tab po daily MAGNESI UM 85331536841 Active Chelsea Barba APRN Active SUDAFED 24 HOUR 240 MG ORAL [id number] 1 tab po daily PSEUDOEPHEDRINE HCL 13592364318 Active Chelsea Barba APRN A ctive CETIRIZINE HCL 5 MG TABS Take 1 tablet by mouth daily CETIRIZINE HCL 06046072698 No Longer Active Chelsea Barba APRN Acti ve TRIMETHOPRIM 100 MG TABS 1/2 qd TRIMETHOPRIM 08988539267 No Longer Active Chelsea Barba APRN Active BACTRIM DS 800-160 MG TAB 1 tab by mouth twice daily 2 TRIMETHOPRIM-SULFAMETHOXAZOLE 47029342323 No Longer Active Tesfaye Sherman MD Active BACTRIM DS 800-160 MG TAB 1 tab by mouth twice daily X 10 DAYS 2 TRIMETHOPRIM-SULFAMETHOXAZOLE 36606134952 No Longer Active Umer Sherman MD Active AMOXICILLIN 500 MG CAPS 1 cap by mouth three times a day AMOXICILLIN 93401370832 No Longer Active Adriana Arnulfo Active MECLIZINE HCL 25 MG TAB one tab po qday prn dizziness MECLIZINE HCL 08098077956 Active Tesfaye Sherman MD Active B-12 1000 MCG ORAL LOZG 1 tab po daily CYANOCOBAL STANTON 11081341486 Active Tesfaye Sherman MD Active VITAMIN D3 2000 UNIT TABS 1 daily, for vitamin D deficiency 2014 CHOLECALCIFEROL 02218334810 No Longer Active Tesfaye Sherman MD Active TIZANIDINE HCL 2 MG TABS take 1-2 tablet by mouth ev [place] day at bedtime at 9pm PRN TIZANIDINE HCL 62874860805 Active Tesfaye Owusu Active ZITHROMAX 250 MG TAB 2 po today, then 1 po q days 2-5 AZITHROMYCIN 93462263982 No Longer Active Tesfaye Sherman MD Acti ve BACTRIM DS 800-160 MG TAB 1 tab by mouth twice daily 2 TRIMETHOPRIM-SULFAMETHOXAZOLE 96558710508 No Longer Active Tesfaye Sherman MD Active PRELIEF 340 (65-50) MG (CA-P) ORAL TABS CALCIUM GLYCEROPHOSPHATE 71443812443 Active Tesfaye Sherman MD Active [facility] NIACIN FLUSH FREE 400-100 MG CAPS 1 daily NIACIN-INOSITOL 42006275288 Active Kayla Cooper MD Active DIFLUCAN 150 MG TABS 1 qd FLUCONAZOLE 81425 131866 No Longer Active Kayla Cooper MD Active FLUTICASONE PROPIONATE 50 MCG/ACT SUSP 1 spray each nostril twice daily FLUTICASONE PROPIONATE 68643011175 Active Tesfaye armenta MD Active LOVASTATIN 20 MG TABS Take 1 tablet by mouth daily LOVASTATIN 59152701126 No Longer Active Tesfaye Sherman MD Active MELOXICAM 7.5 MG TABS 1 tablet by mouth daily M ELOXICAM 16778415898 No Longer Active Tesfaye Sherman MD Active GABAPENTIN 300 MG CAPS Take two tablets by mouth every evening GABAPENTIN 24461442533 No Longer Active Edith Burch MD Active OXYCODONE-ACETAMINOPHEN 5-325 MG TABS Take one tablet by mouth every 6 hours as needed. Max 12 tabs/day as needed OXYCODONE-ACETAMINOP HEN 62460958852 Active Tesfaye Sherman MD Active CYMBALTA 60 MG CPEP Take 1 tablet by mouth daily D ULOXETINE HCL 07159375537 Active Kayla Cooper MD Active CLONAZEPAM 0.5 MG TABS Take one tablet in the morning and 1.5 table t at 7pm CLONAZEPAM 27141915485 Active Kayla Cooper MD Active BACLOFEN 10 MG TABS Take one tablet by mouth three times a day BACLOFEN 69993934489 Active Kayla Cooper MD Active GABAPENTIN 300 MG CAPS Take two tablets by mouth every evening GABAPENTIN 300 MG CAPS 264435 GABAPENTIN Inactive MELOXICAM 7.5 MG TABS 1 tablet by mouth daily MELOXICAM 7.5 MG TABS 005016 MELOXICAM Inactive LOVASTATIN 20 MG TABS Take 1 tablet by mouth daily 201 02/12/20 LOVASTATIN 20 MG TABS 243551 LOVASTATIN Inactive DIFLUCAN 150 MG TABS 1 qd DIFLUCAN 150 MG T ABS 076939 FLUCONAZOLE Inactive VITAMIN D3 2000 UNIT TABS 1 daily, for vitamin D deficiency 2014 VITAMIN D3 2000 UNIT TABS CHOLECALCIFEROL Inacti ve AMOXICILLIN 500 MG CAPS 1 cap by mouth three times a day AMOXICILLIN 500 MG CAPS 630113 AMOXICILLIN Inactive BACTRIM DS 800-160 MG TAB 1 tab by mouth twice daily X 10 DAYS 2 BACTRIM DS 800-160 MG TAB 19830105 TRIMETHOPRIM-SULFAMETH OXAZOLE Inactive TRIMETHOPRIM 100 MG TABS 1/2 qd TRIMETHOPRI M 100 MG TABS 19830102 TRIMETHOPRIM Inactive CETIRIZINE HCL 5 MG TABS Take 1 tablet by mouth daily CETIRIZINE HCL 5 MG TABS 0381415 CETIRIZINE HCL Inactive PRAMIPEXOLE DIHYDROCHLORIDE 0.125 MG ORAL TABS take 1 tablet po qhs for restless leg syndrome. PRAMIPEXOLE DIHYDROC HLORIDE 0.125 MG ORAL TABS 852474 PRAMIPEXOLE DIHYDROCHLORIDE Inactive MIRTAZAPINE 15 MG ORAL TABS 1/2 tab by mouth at bedtime. MIRTAZAPINE 15 MG ORAL TABS 699703 MIRTAZAPINE Inactive DIFLUCAN 100 MG TAB 1 tablet by mouth daily X 3 DAYS 2 DIFLUCAN 100 MG TAB 479023 FLUCONAZOLE Inactive DIFLUCAN 100 MG TABS 1 tablet by mouth every other day for 2 dos es DIFLUCAN 100 MG TABS 187489 FLUCONAZOLE Inactive CEFTIN 250 MG TAB 1 tablet twice daily x 7 days 11/19 CEFTIN 250 MG TAB 416185 CEFUROXIME AXETIL Inactive BACTRIM DS 800-160 MG TAB 1 tab by mouth twice daily 2 BACTRIM DS 800-160 MG TAB 19830105 TRIMETHOPRIM-SULFAMETHOXAZOLE Inac tive ZITHROMAX 250 MG TAB 2 po today, then 1 po q days 2-5 ZITHROMAX 250 MG TAB 5649260 AZITHROMYCIN Inactive BACTRIM DS 800-160 MG TAB [...] ... - Chemistry sodium, serum 144 mmol/L 490-547 6009/06/14 carbon dioxide, venous blood 29.4 mmol/L 21.0-32 .0 potassium, serum 4.4 mmol/L 3.5-5.2 chloride, serum 108 mmol/L 98-107 blood glucose 100 mg/dL 65-110 urea nitrogen, blood 9 mg/dL 7-18 creatinine, serum 0.67 mg/dL 0.55-1.30 alanine aminotransferase (SGPT), serum 24 U/L 12-78 aspartate aminotransferase (SGOT), serum 15 U/L 15-37 calcium, serum 9.3 mg/dL 8.5-10.1 bilirubin, serum, total 0.50 mg/dL 0.00-1.00 cholesterol, serum 268 mg/dL 046-902 2193/06/14 triglyceride, serum, fasting 126 mg/dL 30-200 HDL [...] mg/dL Encounters Code Encounter Date Provider Facility CPT-32506 Level 4 Est. Patient 13:24:25 CDT Stephanie MERCADO [facility] CPT-82606 Level 4 Est. Patient 09:14:56 CDT Tesfaye pearson MD [facility] CPT-33318 Level 4 Est. Patient 18:40:25 MOTO MIX OPERATOR Tesfaye pearson MD [facility] CPT-30623 Level 4 Est. Patient 18:13:07 MOTO MIX OPERATOR Tesfaye pearson MD [facility] CPT-17351 Level 3 Est. Patient 10:46:32 CDT Rj cotto DO [facility] CPT-99023 Level 4 Est. Patient 20:19:25 CDT Tesfaye pearson MD [facility] CPT-12343 Level 3 Est. Patient 09:07:31 CDT Tesfaye pearson MD [facility] CPT-48827 Level 4 Est. Patient 13:12:56 CDT Tesfaye pearson MD [facility] CPT-51765 Level 4 Est. Patient 21:24:55 MOTO MIX OPERATOR Tesfaye pearson MD [facility] CPT-84520 Level 3 Est. Patient 13:45:04 MOTO MIX OPERATOR Tesfaye pearson MD [facility] CPT-80123 Level 4 Est. Patient 13:50:45 CDT Tesfaye pearson MD [facility] CPT-20472 Level 3 Est. Patient 10:16:10 CDT Tesfaye pearson MD [facility] CPT-44905 Level 3 Est. Patient 16:36:07 MOTO MIX OPERATOR Kayla jameson MD [facility] CPT-95780 Level 4 Est. Patient 16:00:14 MOTO MIX OPERATOR Tesfaye pearson MD [facility] CPT-77004 Level 4 Est. Patient 11:02:24 MOTO MIX OPERATOR Tesfaye pearson MD [facility] CPT-76412 Level 3 Est. Patient 20:21:43 MOTO MIX OPERATOR Kayla jameson MD [facility] CPT-13030 Level 3 Est. Patient 13:27:28 MOTO MIX OPERATOR Kayla jameson MD [facility] CPT-27673 Level 4 Est. Patient 15:57:17 MOTO MIX OPERATOR Tesfaye pearson MD [facility] CPT-41284 Level 3 New Patient 13:25:47 CDT Tesfaye kidd MD [facility] CPT-82604 Level 3 New Patient 17:22:21 CDT J John angel MD [facility] Procedures Code Procedure Name Date Entry Date Standard Desc ription CPT-19957 Foot, right, comp min 3V - XRAY USE ONLY 10:38:34 CDT CPT-G0439 Subsequent Annual Wellness Exam 13:55:04 CDT CPT-G0438 Initial Annual Wellness Exam 11:23:17 CD T CPT-J2930 Solu Medrol 125 mg (Methyl Prednisolone Sodium Succinate) 17:29:12 MOTO MIX OPERATOR CPT-88417 Abx/Therapy Injection 17:29:11 MOTO MIX OPERATOR CPT-J2930 Solu Medrol 125 mg (Methyl Prednisolone Sodium Succinate) 12:34:38 MOTO MIX OPERATOR CPT-J3420 Vitamin B12 1000mcg (Cyanocobalamin) 09:12:55 CDT CPT-J3420 Vitamin B12 1000mcg (Cyanocobalamin) 16:28:06 MOTO MIX OPERATOR CPT-77779 Venipuncture Draw Fee 08:39:53 CDT CPT-J3420 Vitamin B12 1000mcg (Cyanocobalamin) 08:46:22 CDT CPT-99889 Abx/Therapy Injection 08:46:22 CDT CPT-J3420 Vitamin B12 1000mcg (Cyanocobalamin) 08:41:26 CDT CPT-64034 Abx/Therapy Injection 08:41:26 CDT CPT-J3420 Vitamin B12 1000mcg (Cyanocobalamin) 08:57:15 CDT CPT-58863 Abx/Therapy Injection 08:57:15 CDT CPT-J3420 Vitamin B12 1000mcg (Cyanocobalamin) 10:59:03 CDT CPT-72911 Abx/Therapy Injection 10:59:03 CDT CPT-J3420 Vitamin B12 1000mcg (Cyanocobalamin) 15:05:39 CDT CPT-41658 Abx/Therapy Injection 15:05:39 CDT CPT-J3420 Vitamin B12 1000mcg (Cyanocobalamin) 13:50:45 CDT CPT-J3420 Vitamin B12 1000mcg (Cyanocobalamin) 08:48:55 CDT CPT-92046 Abx/Therapy Injection 08:48:55 CDT CPT-J3420 Vitamin B12 1000mcg (Cyanocobalamin) 09:14:54 CDT CPT-29183 Abx/Therapy Injection 09:14:54 CDT CPT-J3420 Vitamin B12 1000mcg (Cyanocobalamin) 09:06:06 CDT CPT-44679 Abx/Therapy Injection 09:06:06 CDT CPT-J3420 Vitamin B12 1000mcg (Cyanocobalamin) 09:49:14 CDT CPT-07715 Abx/Therapy Injection 09:49:14 CDT CPT-J3420 Vitamin B12 1000mcg (Cyanocobalamin) 09:10:30 MOTO MIX OPERATOR CPT-36186 Abx/Therapy Injection 09:10:30 MOTO MIX OPERATOR CPT-J3420 Vitamin B12 1000mcg (Cyanocobalamin) 09:11:07 MOTO MIX OPERATOR CPT-66418 Abx/Therapy Injection 09:11:07 MOTO MIX OPERATOR CPT-J3420 Vitamin B12 1000mcg (Cyanocobalamin) 09:57:03 MOTO MIX OPERATOR CPT-40826 Abx/Therapy Injection 09:57:03 MOTO MIX OPERATOR CPT-J3420 Vitamin B12 1000mcg (Cyanocobalamin) 09:23:21 MOTO MIX OPERATOR CPT-81628 Abx/Therapy Injection 09:23:21 MOTO MIX OPERATOR CPT-04706 Urine Dip (Floor Use Only) 20:21:44 MOTO MIX OPERATOR 201 02/12/11 CPT-26727 UA Dip Auto (Floor Use Only) 10:04:39 MOTO MIX OPERATOR 2 CPT-65924 Urine Dip (Floor Use Only) 13:27:28 MOTO MIX OPERATOR 201 02/12/01 CPT-34364 Bladder Scan 13:27:28 MOTO MIX OPERATOR CPT-04097 Abd single AP View 14:30:51 MOTO MIX OPERATOR CPT-OV Office Visit 10:15:43 CDT CPT-47918 Urine Dip (Floor Use Only) 17:22:21 CDT 201 02/09/02 CPT-63127 Bladder Scan 17:22:21 CDT
--- OUTSIDE RECORDS SUMMARY | 2020-05-05 12:08 | XMS REPORT | Clinical Summary ---
Author Author Jeri Hanley Organization [employer] Address Unknown Phone Unavailable Allergies, Adverse Reactions, [...] 1 tablet by mouth daily FLU CONAZOLE [id number] Active Tesfaye Sherman MD Active BACTRIM DS 800-160 MG TAB 1 tab by mouth twice daily 2 TRIMETHOPRIM-SULFAMETHOXAZOLE 12623983207 Active Tesfaye Sherman MD Active BACTRIM DS 800-160 MG TAB 1 tab by mouth twice daily 2 TRIMETHOPRIM-SULFAMETHOXAZOLE 60880266198 No Longer Active Tesfaye Sherman MD Active DIFLUCAN 150 MG TAB 1 tablet by mouth daily FLU CONAZOLE 04858739272 No Longer Active Tesfaye Sherman MD Active BACTRIM DS 800-160 MG TAB 1 tab by mouth twice daily 2 TRIMETHOPRIM-SULFAMETHOXAZOLE 29123780533 No Longer Active Tesfaye Sherman MD Active ROPINIROLE HCL 0.25 MG ORAL TABS 1 TAB PO Q HS ROPINIROLE HCL 95612177783 Active Tesfaye Sherman MD Active CYMBALTA 30 MG CPEP 1 cap by mouth daily with 60mg DULOXETINE HCL 52440454546 Active Tesfaye Sherman MD Active CEFTIN 250 MG TAB 1 tablet twice daily x 7 days 11/19 CEFUROXIME AXETIL 29012312710 No Longer Active Tesfaye Sherman MD Acti ve DIFLUCAN 100 MG TABS 1 tablet by mouth every other day for 2 dos es FLUCONAZOLE 19555371256 No Longer Active Tesfaye Sherman MD Active DIFLUCAN 100 MG TAB 1 tablet by mouth daily X 3 DAYS 2 FLUCONAZOLE 37818958263 No Longer Active Rj Moss DO Active MIRTAZAPINE 15 MG ORAL TABS 1/2 tab by mouth at bedtime. MIRTAZAPINE 22440397282 No Longer Active Tesfaye Sherman MD Acti ve BACTRIM DS 800-160 MG TAB 1 tab by mouth twice daily 2 TRIMETHOPRIM-SULFAMETHOXAZOLE 20475247375 No Longer Active Tesfaye Sherman MD Active PRAMIPEXOLE DIHYDROCHLORIDE 0.125 MG ORAL TABS take 1 tablet po qhs for restless leg syndrome. PRAMIPEXOLE DIHYDROCHLORIDE 47729879797 No Longer Active Tesfaye Sherman MD Active MAGNESIUM 400 MG ORAL TABS 1 tab po daily MAGNESI UM 10649898914 Active Chelsea Barba APRN Active SUDAFED 24 HOUR 240 MG ORAL [id number] 1 tab po daily PSEUDOEPHEDRINE HCL 74809393177 Active Chelsea Barba APRN A ctive CETIRIZINE HCL 5 MG TABS Take 1 tablet by mouth daily CETIRIZINE HCL 25192085793 No Longer Active Chelsea Barba APRN Acti ve TRIMETHOPRIM 100 MG TABS 1/2 qd TRIMETHOPRIM 43853932512 No Longer Active Chelsea Barba APRN Active BACTRIM DS 800-160 MG TAB 1 tab by mouth twice daily 2 TRIMETHOPRIM-SULFAMETHOXAZOLE 05554683786 No Longer Active Tesfaye Sherman MD Active BACTRIM DS 800-160 MG TAB 1 tab by mouth twice daily X 10 DAYS 2 TRIMETHOPRIM-SULFAMETHOXAZOLE 07332150378 No Longer Active D patricia Sherman MD Active AMOXICILLIN 500 MG CAPS 1 cap by mouth three times a day AMOXICILLIN 12959325421 No Longer Active Adriana Arredondo Active MECLIZINE HCL 25 MG TAB one tab po qday prn dizziness MECLIZINE HCL 96404477994 Active Tesfaye Sherman MD Active B-12 1000 MCG ORAL LOZG 1 tab po daily CYANOCOBAL STANTON 77144966798 Active Tesfaye Sherman MD Active VITAMIN D3 2000 UNIT TABS 1 daily, for vitamin D deficiency 2014 CHOLECALCIFEROL 02859890815 No Longer Active Tesfaye Sherman MD Active TIZANIDINE HCL 2 MG TABS take 1-2 tablet by mouth ev [place] day at bedtime at 9pm PRN TIZANIDINE HCL 60786273735 Active Tesfaye Owusu Active ZITHROMAX 250 MG TAB 2 po today, then 1 po q days 2-5 AZITHROMYCIN 98267812612 No Longer Active Tesfaye Sherman MD Acti ve BACTRIM DS 800-160 MG TAB 1 tab by mouth twice daily 2 TRIMETHOPRIM-SULFAMETHOXAZOLE 66539302714 No Longer Active Tesfaye Sherman MD Active PRELIEF 340 (65-50) MG (CA-P) ORAL TABS CALCIUM GLYCEROPHOSPHATE 68001598907 Active Tesfaye Sherman MD Active [facility] NIACIN FLUSH FREE 400-100 MG CAPS 1 daily NIACIN-INOSITOL 09190582939 Active Kayla Cooper MD Active DIFLUCAN 150 MG TABS 1 qd FLUCONAZOLE 17666 781975 No Longer Active Kayla Cooper MD Active FLUTICASONE PROPIONATE 50 MCG/ACT SUSP 1 spray each nostril twice daily FLUTICASONE PROPIONATE 59992641211 Active Tesfaye armenta MD Active LOVASTATIN 20 MG TABS Take 1 tablet by mouth daily LOVASTATIN 28814827984 No Longer Active Tesfaye Sherman MD Active MELOXICAM 7.5 MG TABS 1 tablet by mouth daily M ELOXICAM 16147843345 No Longer Active Tesfaye Sherman MD Active GABAPENTIN 300 MG CAPS Take two tablets by mouth every evening GABAPENTIN 76264385923 No Longer Active Edith Burch MD Active OXYCODONE-ACETAMINOPHEN 5-325 MG TABS Take one tablet by mouth every 6 hours as needed. Max 12 tabs/day as needed OXYCODONE-ACETAMINOP HEN 85761623089 Active Tesfaye Sherman MD Active CYMBALTA 60 MG CPEP Take 1 tablet by mouth daily D ULOXETINE HCL 09852310235 Active Kayla Cooper MD Active CLONAZEPAM 0.5 MG TABS Take one tablet in the morning and 1.5 table t at 7pm CLONAZEPAM 16459587009 Active Kayla Cooper MD Active BACLOFEN 10 MG TABS Take one tablet by mouth three times a day BACLOFEN 81867146238 Active Kayla Cooper MD Active GABAPENTIN 300 MG CAPS Take two tablets by mouth every evening GABAPENTIN 300 MG CAPS 600381 GABAPENTIN Inactive MELOXICAM 7.5 MG TABS 1 tablet by mouth daily MELOXICAM 7.5 MG TABS 046213 MELOXICAM Inactive LOVASTATIN 20 MG TABS Take 1 tablet by mouth daily 201 02/12/20 LOVASTATIN 20 MG TABS 068060 LOVASTATIN Inactive DIFLUCAN 150 MG TABS 1 qd DIFLUCAN 150 MG T ABS 19760712 FLUCONAZOLE Inactive VITAMIN D3 2000 UNIT TABS 1 daily, for vitamin D deficiency 2014 VITAMIN D3 2000 UNIT TABS CHOLECALCIFEROL Inacti ve AMOXICILLIN 500 MG CAPS 1 cap by mouth three times a day AMOXICILLIN 500 MG CAPS 220431 AMOXICILLIN Inactive BACTRIM DS 800-160 MG TAB 1 tab by mouth twice daily X 10 DAYS 2 BACTRIM DS 800-160 MG TAB 372558 TRIMETHOPRIM-SULFAMETH OXAZOLE Inactive TRIMETHOPRIM 100 MG TABS 1/2 qd TRIMETHOPRI M 100 MG TABS 981004 TRIMETHOPRIM Inactive CETIRIZINE HCL 5 MG TABS Take 1 tablet by mouth daily CETIRIZINE HCL 5 MG TABS 3308882 CETIRIZINE HCL Inactive PRAMIPEXOLE DIHYDROCHLORIDE 0.125 MG ORAL TABS take 1 tablet po qhs for restless leg syndrome. PRAMIPEXOLE DIHYDROC HLORIDE 0.125 MG ORAL TABS 758992 PRAMIPEXOLE DIHYDROCHLORIDE Inactive MIRTAZAPINE 15 MG ORAL TABS 1/2 tab by mouth at bedtime. MIRTAZAPINE 15 MG ORAL TABS 905291 MIRTAZAPINE Inactive DIFLUCAN 100 MG TAB 1 tablet by mouth daily X 3 DAYS 2 DIFLUCAN 100 MG TAB 420999 FLUCONAZOLE Inactive DIFLUCAN 100 MG TABS 1 tablet by mouth every other day for 2 dos es DIFLUCAN 100 MG TABS 19760711 FLUCONAZOLE Inactive CEFTIN 250 MG TAB 1 tablet twice daily x 7 days 11/19 CEFTIN 250 MG TAB 702089 CEFUROXIME AXETIL Inactive BACTRIM DS 800-160 MG TAB 1 tab by mouth twice daily 2 BACTRIM DS 800-160 MG TAB 19830105 TRIMETHOPRIM-SULFAMETHOXAZOLE Inac tive ZITHROMAX 250 MG TAB 2 po today, then 1 po q days 2-5 ZITHROMAX 250 MG TAB 2808970 AZITHROMYCIN Inactive BACTRIM DS 800-160 MG TAB [...] - 3141-9 123 [lb_av] Weigh t Measured Diagnostic Results Date [...] Office Visit: 3 month follow up - Basic LDL target level 160 mg/dL Office Visit: 3 month follow up - Chemis try HDL cholesterol, serum, target level 40 mg/dL triglyceride, target level 150 mg/dL cholesterol, target level 200 mg/dL Office Visit: 3 MONTH FU - Basic LDL target level 160 mg/dL Office Visit: 3 MONTH FU - Chemistry HDL cholesterol, serum, target level 40 mg/dL triglyceride, target level 150 mg/dL cholesterol, target level 200 mg/dL Encounters Code Encounter Date Provider Facility CPT-50089 Level 4 Est. Patient 09:14:56 CDT Tesfaye pearson MD [facility] CPT-50272 Level 4 Est. Patient 18:40:25 [employer] Tesfaye pearson MD [facility] CPT-47017 Level 4 Est. Patient 18:13:07 [employer] Tesfaye pearson MD [facility] CPT-65884 Level 3 Est. Patient 10:46:32 CDT Rj cotto DO [facility] CPT-59352 Level 4 Est. Patient 20:19:25 CDT Tesfaye pearson MD [facility] CPT-23634 Level 3 Est. Patient 09:07:31 CDT Tesfaye pearson MD [facility] CPT-26440 Level 4 Est. Patient 13:12:56 CDT Tesfaye pearson MD [facility] CPT-69178 Level 4 Est. Patient 21:24:55 [employer] Tesfaye pearson MD [facility] CPT-16729 Level 3 Est. Patient 13:45:04 [employer] Tesfaye pearson MD [facility] CPT-38894 Level 4 Est. Patient 13:50:45 CDT Tesfaye pearson MD [facility] CPT-19119 Level 3 Est. Patient 10:16:10 CDT Tesfaye pearson MD [facility] CPT-05272 Level 3 Est. Patient 16:36:07 [employer] Kayla jameson MD [facility] CPT-12926 Level 4 Est. Patient 16:00:14 [employer] Tesfaye pearson MD [facility] CPT-12462 Level 4 Est. Patient 11:02:24 [employer] Tesfaye pearson MD [facility] CPT-17286 Level 3 Est. Patient 20:21:43 [employer] Kayla jameson MD [facility] CPT-00228 Level 3 Est. Patient 13:27:28 [employer] Kayla jameson MD [facility] CPT-71285 Level 4 Est. Patient 15:57:17 [employer] Tesfaye pearson MD [facility] CPT-63625 Level 3 New Patient 13:25:47 CDT Tesfaye kidd MD [facility] CPT-69088 Level 3 New Patient 17:22:21 CDT Kayla angel [facility] Procedures Code Procedure Name Date Entry Date Standard Desc ription CPT-G0438 Initial Annual Wellness Exam 11:23:17 CD T CPT-J2930 Solu Medrol 125 mg (Methyl Prednisolone Sodium Succinate) 17:29:12 [employer] CPT-98023 Abx/Therapy Injection 17:29:11 [employer] CPT-J2930 Solu Medrol 125 mg (Methyl Prednisolone Sodium Succinate) 12:34:38 [employer] CPT-J3420 Vitamin B12 1000mcg (Cyanocobalamin) 09:12:55 CDT CPT-J3420 Vitamin B12 1000mcg (Cyanocobalamin) 16:28:06 [employer] CPT-34297 Venipuncture Draw Fee 08:39:53 CDT CPT-J3420 Vitamin B12 1000mcg (Cyanocobalamin) 08:46:22 CDT CPT-83658 Abx/Therapy Injection 08:46:22 CDT CPT-J3420 Vitamin B12 1000mcg (Cyanocobalamin) 08:41:26 CDT CPT-90783 Abx/Therapy Injection 08:41:26 CDT CPT-J3420 Vitamin B12 1000mcg (Cyanocobalamin) 08:57:15 CDT CPT-32301 Abx/Therapy Injection 08:57:15 CDT CPT-J3420 Vitamin B12 1000mcg (Cyanocobalamin) 10:59:03 CDT CPT-93218 Abx/Therapy Injection 10:59:03 CDT CPT-J3420 Vitamin B12 1000mcg (Cyanocobalamin) 15:05:39 CDT CPT-58519 Abx/Therapy Injection 15:05:39 CDT CPT-J3420 Vitamin B12 1000mcg (Cyanocobalamin) 13:50:45 CDT CPT-J3420 Vitamin B12 1000mcg (Cyanocobalamin) 08:48:55 CDT CPT-14944 Abx/Therapy Injection 08:48:55 CDT CPT-J3420 Vitamin B12 1000mcg (Cyanocobalamin) 09:14:54 CDT CPT-26711 Abx/Therapy Injection 09:14:54 CDT CPT-J3420 Vitamin B12 1000mcg (Cyanocobalamin) 09:06:06 CDT CPT-73388 Abx/Therapy Injection 09:06:06 CDT CPT-J3420 Vitamin B12 1000mcg (Cyanocobalamin) 09:49:14 CDT CPT-43975 Abx/Therapy Injection 09:49:14 CDT CPT-J3420 Vitamin B12 1000mcg (Cyanocobalamin) 09:10:30 [employer] CPT-52675 Abx/Therapy Injection 09:10:30 [employer] CPT-J3420 Vitamin B12 1000mcg (Cyanocobalamin) 09:11:07 [employer] CPT-37680 Abx/Therapy Injection 09:11:07 [employer] CPT-J3420 Vitamin B12 1000mcg (Cyanocobalamin) 09:57:03 [employer] CPT-54518 Abx/Therapy Injection 09:57:03 [employer] CPT-J3420 Vitamin B12 1000mcg (Cyanocobalamin) 09:23:21 [employer] CPT-56101 Abx/Therapy Injection 09:23:21 [employer] CPT-89467 Urine Dip (Floor Use Only) 20:21:44 [employer] 201 02/12/11 CPT-24846 UA Dip Auto (Floor Use Only) 10:04:39 [employer] 2 CPT-29230 Urine Dip (Floor Use Only) 13:27:28 [employer] 201 02/12/01 CPT-36109 Bladder Scan 13:27:28 [employer] CPT-31649 Abd single AP View 14:30:51 [employer] CPT-OV Office Visit 10:15:43 CDT CPT-48822 Urine Dip (Floor Use Only) 17:22:21 CDT 201 02/09/02 CPT-29225 Bladder Scan 17:22:21 CDT
--- OUTSIDE RECORDS SUMMARY | 2020-05-05 12:08 | XMS REPORT | Clinical Summary ---
Author Author Talon, Jeri Wood Organization [employer] Address Unknown Phone Unavailable Allergies, Adverse Reactions, Alerts Allergy Name Reaction Description Start Date Severity Status Pr ovider MIRTAZAPINE Bloating, edema, fatigue, muscle pain Moderate [...] malaise and fatigue Sinusitis 461.9 Active Tesfaye Shemran MD Acute sinusitis, unspecified Interstitial Cystitis 595.1 [...] Status Provider Patient Instruction DIFLUCAN 100 MG TABS 1 tablet by mouth every other day for 2 doses FLUCONAZOLE 54501256543 Active Rj Moss DO Active CEFTIN 250 MG TAB 1 tablet twice daily x 7 days CEFUROXIME AXETIL 67313140309 Active Rj Moss DO Active DIFLUCAN 100 MG TAB 1 tablet by mouth daily X 3 DAYS 2 FLUCONAZOLE 14850768913 No Longer Active Rj Moss DO Active MIRTAZAPINE 15 MG ORAL TABS 1/2 tab by mouth at bedtime. MIRTAZAPINE 49281632540 No Longer Active Tesfaye Sherman MD Acti ve BACTRIM DS 800-160 MG TAB 1 tab by mouth twice daily 2 TRIMETHOPRIM-SULFAMETHOXAZOLE 21011894129 No Longer Active Tesfaye Sherman MD Active PRAMIPEXOLE DIHYDROCHLORIDE 0.125 MG ORAL TABS take 1 tablet po qhs for restless leg syndrome. PRAMIPEXOLE DIHYDROCHLORIDE 64930317930 No Longer Active Tesfaye Sherman MD Active MAGNESIUM 400 MG ORAL TABS 1 tab po daily MAGNESI UM 85233863153 Active Chelsea Barba APRN Active SUDAFED 24 HOUR 240 MG ORAL [id number] 1 tab po daily PSEUDOEPHEDRINE HCL 56769685919 Active Chelsea Barba APRN A ctive CETIRIZINE HCL 5 MG TABS Take 1 tablet by mouth daily CETIRIZINE HCL 98006028614 No Longer Active Chelsea Barba APRN Acti ve TRIMETHOPRIM 100 MG TABS 1/2 qd TRIMETHOPRIM 13370665303 No Longer Active Chelsea Barba APRN Active BACTRIM DS 800-160 MG TAB 1 tab by mouth twice daily 2 TRIMETHOPRIM-SULFAMETHOXAZOLE 02060719532 No Longer Active Tesfaye Sherman MD Active BACTRIM DS 800-160 MG TAB 1 tab by mouth twice daily X 10 DAYS 2 TRIMETHOPRIM-SULFAMETHOXAZOLE 61483578301 No Longer Active Umer Sherman MD Active AMOXICILLIN 500 MG CAPS 1 cap by mouth three times a day AMOXICILLIN 85923221527 No Longer Active Adriana Arredondo Active MECLIZINE HCL 25 MG TAB one tab po qday prn dizziness MECLIZINE HCL 95887883258 Active Tesfaye Sherman MD Active B-12 1000 MCG ORAL LOZG 1 tab po daily CYANOCOBAL STANTON 23519979268 Active Tesfaye Sherman MD Active VITAMIN D3 2000 UNIT TABS 1 daily, for vitamin D deficiency 2014 CHOLECALCIFEROL 88436254594 No Longer Active Tesfaye Sherman MD Active TIZANIDINE HCL 2 MG TABS take 1-2 tablet by mouth ev [place] day at bedtime at 9pm PRN TIZANIDINE HCL 40165670587 Active Tesfaye Owusu Active ZITHROMAX 250 MG TAB 2 po today, then 1 po q days 2-5 AZITHROMYCIN 10764792572 No Longer Active Tesfaye Sherman MD Acti ve BACTRIM DS 800-160 MG TAB 1 tab by mouth twice daily 2 TRIMETHOPRIM-SULFAMETHOXAZOLE 71606616048 No Longer Active Tesfaye Sherman MD Active PRELIEF 340 (65-50) MG (CA-P) ORAL TABS CALCIUM GLYCEROPHOSPHATE 94501943969 Active Tesfaye Sherman MD Active [facility] NIACIN FLUSH FREE 400-100 MG CAPS 1 daily NIACIN-INOSITOL 76108299984 Active Kayla Cooper MD Active DIFLUCAN 150 MG TABS 1 qd FLUCONAZOLE 26011 113563 No Longer Active Kayla Cooper MD Active FLUTICASONE PROPIONATE 50 MCG/ACT SUSP 1 spray each nostril twice daily FLUTICASONE PROPIONATE 68890910975 Active Tesfaye armenta MD Active LOVASTATIN 20 MG TABS Take 1 tablet by mouth daily LOVASTATIN 65768064899 No Longer Active Tesfaye Sherman MD Active MELOXICAM 7.5 MG TABS 1 tablet by mouth daily M ELOXICAM 99346177943 No Longer Active Tesfaye Sherman MD Active GABAPENTIN 300 MG CAPS Take two tablets by mouth every evening GABAPENTIN 21948940903 No Longer Active Edith Burch MD Active OXYCODONE-ACETAMINOPHEN 5-325 MG TABS Take one tablet by mouth every 6 hours as needed. Max 12 tabs/day as needed OXYCODONE-ACETAMINOP HEN 35520529330 Active Tesfaye Sherman MD Active CYMBALTA 60 MG CPEP Take 1 tablet by mouth daily D ULOXETINE HCL 48149401444 Active Kayla Cooper MD Active CLONAZEPAM 0.5 MG TABS Take one tablet in the morning and 1.5 table t at 7pm CLONAZEPAM 58395975164 Active Kayla Cooper MD Active BACLOFEN 10 MG TABS Take one tablet by mouth three times a day BACLOFEN 30688126573 Active Kayla Cooper MD Active GABAPENTIN 300 MG CAPS Take two tablets by mouth every evening GABAPENTIN 300 MG CAPS 334866 GABAPENTIN Inactive MELOXICAM 7.5 MG TABS 1 tablet by mouth daily MELOXICAM 7.5 MG TABS 897380 MELOXICAM Inactive LOVASTATIN 20 MG TABS Take 1 tablet by mouth daily 201 02/12/20 LOVASTATIN 20 MG TABS 442833 LOVASTATIN Inactive DIFLUCAN 150 MG TABS 1 qd DIFLUCAN 150 MG T ABS 074355 FLUCONAZOLE Inactive VITAMIN D3 2000 UNIT TABS 1 daily, for vitamin D deficiency 2014 VITAMIN D3 2000 UNIT TABS CHOLECALCIFEROL Inacti ve AMOXICILLIN 500 MG CAPS 1 cap by mouth three times a day AMOXICILLIN 500 MG CAPS 354708 AMOXICILLIN Inactive BACTRIM DS 800-160 MG TAB 1 tab by mouth twice daily X 10 DAYS 2 BACTRIM DS 800-160 MG TAB 19830105 TRIMETHOPRIM-SULFAMETH OXAZOLE Inactive TRIMETHOPRIM 100 MG TABS 1/2 qd TRIMETHOPRI M 100 MG TABS 666687 TRIMETHOPRIM Inactive CETIRIZINE HCL 5 MG TABS Take 1 tablet by mouth daily CETIRIZINE HCL 5 MG TABS 0387425 CETIRIZINE HCL Inactive PRAMIPEXOLE DIHYDROCHLORIDE 0.125 MG ORAL TABS take 1 tablet po qhs for restless leg syndrome. PRAMIPEXOLE DIHYDROC HLORIDE 0.125 MG ORAL TABS 592189 PRAMIPEXOLE DIHYDROCHLORIDE Inactive MIRTAZAPINE 15 MG ORAL TABS 1/2 tab by mouth at bedtime. MIRTAZAPINE 15 MG ORAL TABS 607550 MIRTAZAPINE Inactive DIFLUCAN 100 MG TAB 1 tablet by mouth daily X 3 DAYS 2 DIFLUCAN 100 MG TAB 899888 FLUCONAZOLE Inactive BACTRIM DS 800-160 MG TAB 1 tab by mouth twice daily 2 BACTRIM DS 800-160 MG TAB 653072 TRIMETHOPRIM-SULFAMETHOXAZOLE Inac tive ZITHROMAX 250 MG TAB 2 po today, then 1 po q days 2-5 ZITHROMAX 250 MG TAB 7370532 AZITHROMYCIN Inactive BACTRIM DS 800-160 MG TAB [...] protein, urine, semiquantitative (dipstick) negative Lab Report: UADIP W/MICRO, AUTO - Chemis [...] level 150 mg/dL Office Visit: 3 MONTH FU - Chemistry cholesterol, target level 200 mg/dL LDL target level 160 mg/dL HDL cholesterol, serum, target level 40 mg/dL triglyceride, target level 150 mg/dL Office Visit: 3 MONTH RECHECK - Chemistr y cholesterol, target level 200 mg/dL LDL target level 160 mg/dL HDL cholesterol, serum, target level 40 mg/dL triglyceride, target level 150 mg/dL Encounters Code Encounter Date Provider Facility CPT-35378 Level 3 Est. Patient 10:46:32 CDT Rj cotto DO [facility] CPT-89911 Level 4 Est. Patient 20:19:25 CDT Tesfaye pearson MD [facility] CPT-60611 Level 3 Est. Patient 09:07:31 CDT Tesfaye pearson MD [facility] CPT-54022 Level 4 Est. Patient 13:12:56 CDT Tesfaye pearson MD [facility] CPT-18548 Level 4 Est. Patient 21:24:55 [employer]WORK [employer] Tesfaye pearson MD [facility] CPT-49503 Level 3 Est. Patient 13:45:04 [employer]ATWORK TIER Tesfaye pearson MD [facility] CPT-17577 Level 4 Est. Patient 13:50:45 CDT Tesfaye pearson MD [facility] CPT-34698 Level 3 Est. Patient 10:16:10 CDT Tesfaye pearson MD [facility] CPT-56841 Level 3 Est. Patient 16:36:07 [employer]WORK [employer]ER Kayla jameson MD [facility] CPT-03118 Level 4 Est. Patient 16:00:14 [employer]WORK [employer]ER Tesfaye pearson MD [facility] CPT-86864 Level 4 Est. Patient 11:02:24 [employer]ATWORK [employer]ER Tesfaye pearson MD [facility] CPT-03103 Level 3 Est. Patient 20:21:43 [employer]WORK [employer]ER Kayla jameson MD [facility] CPT-58917 Level 3 Est. Patient 13:27:28 [employer]WORK [employer]ER Kayla jameson MD [facility] CPT-79133 Level 4 Est. Patient 15:57:17 FLATWORK TIER Tesfaye pearson MD [facility] CPT-18691 Level 3 New Patient 13:25:47 CDT Tesfaye kidd MD [facility] CPT-35051 Level 3 New Patient 17:22:21 CDT Kayla angel MD [facility] Procedures Code Procedure Name Date Entry Date Standard Desc ription CPT-G0438 Initial Annual Wellness Exam 11:23:17 CD T CPT-J2930 Solu Medrol 125 mg (Methyl Prednisolone Sodium Succinate) 17:29:12 [employer]WORK [employer] CPT-76378 Abx/Therapy Injection 17:29:11 [employer]WORK [employer]ER CPT-J2930 Solu Medrol 125 mg (Methyl Prednisolone Sodium Succinate) 12:34:38 FLATWORK TIER CPT-J3420 Vitamin B12 1000mcg (Cyanocobalamin) 09:12:55 CDT CPT-J3420 Vitamin B12 1000mcg (Cyanocobalamin) 16:28:06 [employer]WORK [employer]ER CPT-18763 Venipuncture Draw Fee 08:39:53 CDT CPT-J3420 Vitamin B12 1000mcg (Cyanocobalamin) 08:46:22 CDT CPT-32587 Abx/Therapy Injection 08:46:22 CDT CPT-J3420 Vitamin B12 1000mcg (Cyanocobalamin) 08:41:26 CDT CPT-77353 Abx/Therapy Injection 08:41:26 CDT CPT-J3420 Vitamin B12 1000mcg (Cyanocobalamin) 08:57:15 CDT CPT-81227 Abx/Therapy Injection 08:57:15 CDT CPT-J3420 Vitamin B12 1000mcg (Cyanocobalamin) 10:59:03 CDT CPT-39269 Abx/Therapy Injection 10:59:03 CDT CPT-J3420 Vitamin B12 1000mcg (Cyanocobalamin) 15:05:39 CDT CPT-19905 Abx/Therapy Injection 15:05:39 CDT CPT-J3420 Vitamin B12 1000mcg (Cyanocobalamin) 13:50:45 CDT CPT-J3420 Vitamin B12 1000mcg (Cyanocobalamin) 08:48:55 CDT CPT-87310 Abx/Therapy Injection 08:48:55 CDT CPT-J3420 Vitamin B12 1000mcg (Cyanocobalamin) 09:14:54 CDT CPT-91712 Abx/Therapy Injection 09:14:54 CDT CPT-J3420 Vitamin B12 1000mcg (Cyanocobalamin) 09:06:06 CDT CPT-04800 Abx/Therapy Injection 09:06:06 CDT CPT-J3420 Vitamin B12 1000mcg (Cyanocobalamin) 09:49:14 CDT CPT-94436 Abx/Therapy Injection 09:49:14 CDT CPT-J3420 Vitamin B12 1000mcg (Cyanocobalamin) 09:10:30 FLATWORK TIER CPT-59747 Abx/Therapy Injection 09:10:30 FLATWORK TIER CPT-J3420 Vitamin B12 1000mcg (Cyanocobalamin) 09:11:07 FLATWORK TIER CPT-37136 Abx/Therapy Injection 09:11:07 FLATWORK TIER CPT-J3420 Vitamin B12 1000mcg (Cyanocobalamin) 09:57:03 FLATWORK TIER CPT-13428 Abx/Therapy Injection 09:57:03 FLATWORK TIER CPT-J3420 Vitamin B12 1000mcg (Cyanocobalamin) 09:23:21 FLATWORK TIER CPT-44567 Abx/Therapy Injection 09:23:21 FLATWORK TIER CPT-06070 Urine Dip (Floor Use Only) 20:21:44 FLATWORK TIER 201 02/12/11 CPT-60356 UA Dip Auto (Floor Use Only) 10:04:39 FLATWORK TIER 2 CPT-88668 Urine Dip (Floor Use Only) 13:27:28 FLATWORK TIER 201 02/12/01 CPT-15268 Bladder Scan 13:27:28 [employer]ATWORK TIER CPT-85962 Abd single AP View 14:30:51 FLATWORK TIER CPT-OV Office Visit 10:15:43 CDT CPT-42405 Urine Dip (Floor Use Only) 17:22:21 CDT 201 02/09/02 CPT-69946 Bladder Scan 17:22:21 CDT
--- OUTSIDE RECORDS SUMMARY | 2020-05-05 12:09 | XMS REPORT | Clinical Summary ---
Author Author Talon, Jeri Wood Organization [employer] Address Unknown Phone Unavailable Allergies, Adverse Reactions, [...] 1 tablet by mouth daily FLU CONAZOLE [id number] No Longer Active Tesfaye Sherman MD Active BACTRIM DS 800-160 MG TAB 1 tab by mouth twice daily 2 TRIMETHOPRIM-SULFAMETHOXAZOLE [id number] No Longer Active Tesfaye Sherman MD Active BACTRIM DS 800-160 MG TAB 1 tab by mouth twice daily 2 TRIMETHOPRIM-SULFAMETHOXAZOLE 99418437436 No Longer Active Tesfaye Sherman MD Active DIFLUCAN 150 MG TAB 1 tablet by mouth daily FLU CONAZOLE 74468794107 No Longer Active Tesfaye Sherman MD Active BACTRIM DS 800-160 MG TAB 1 tab by mouth twice daily 2 TRIMETHOPRIM-SULFAMETHOXAZOLE 31410269059 No Longer Active Tesfaye Sherman MD Active ROPINIROLE HCL 0.25 MG ORAL TABS 1 TAB PO Q HS ROPINIROLE HCL 27909796760 Active Tesfaye Sherman MD Active CYMBALTA 30 MG CPEP 1 cap by mouth daily with 60mg DULOXETINE HCL 86911572872 Active Tesfaye Sherman MD Active CEFTIN 250 MG TAB 1 tablet twice daily x 7 days 11/19 CEFUROXIME AXETIL 70916834172 No Longer Active Tesfaye Sherman MD Acti ve DIFLUCAN 100 MG TABS 1 tablet by mouth every other day for 2 dos es FLUCONAZOLE 12363936056 No Longer Active Tesfaye Sherman MD Active DIFLUCAN 100 MG TAB 1 tablet by mouth daily X 3 DAYS 2 FLUCONAZOLE 06769494565 No Longer Active Rj Moss DO Active MIRTAZAPINE 15 MG ORAL TABS 1/2 tab by mouth at bedtime. MIRTAZAPINE 06754763070 No Longer Active Tesfaye Sherman MD Acti ve BACTRIM DS 800-160 MG TAB 1 tab by mouth twice daily 2 TRIMETHOPRIM-SULFAMETHOXAZOLE 37950496341 No Longer Active Tesfaye Sherman MD Active PRAMIPEXOLE DIHYDROCHLORIDE 0.125 MG ORAL TABS take 1 tablet po qhs for restless leg syndrome. PRAMIPEXOLE DIHYDROCHLORIDE 87256466987 No Longer Active Tesfaye Sherman MD Active MAGNESIUM 400 MG ORAL TABS 1 tab po daily MAGNESI UM 22920930976 Active Chelsea Barba APRN Active SUDAFED 24 HOUR 240 MG ORAL IA20D-QKS 1 tab po daily PSEUDOEPHEDRINE HCL 19550207859 Active Chelsea Barba APRN A ctive CETIRIZINE HCL 5 MG TABS Take 1 tablet by mouth daily CETIRIZINE HCL 09377698701 No Longer Active Chelsea Barba APRN Acti ve TRIMETHOPRIM 100 MG TABS 1/2 qd TRIMETHOPRIM 23845906739 No Longer Active Chelsea Barba APRN Active BACTRIM DS 800-160 MG TAB 1 tab by mouth twice daily 2 TRIMETHOPRIM-SULFAMETHOXAZOLE 10768952729 No Longer Active Tesfaye Sherman MD Active BACTRIM DS 800-160 MG TAB 1 tab by mouth twice daily X 10 DAYS 2 TRIMETHOPRIM-SULFAMETHOXAZOLE 79278622209 No Longer Active D patricia Sherman MD Active AMOXICILLIN 500 MG CAPS 1 cap by mouth three times a day AMOXICILLIN 31951728149 No Longer Active Adriana Arredondo Active MECLIZINE HCL 25 MG TAB one tab po qday prn dizziness MECLIZINE HCL 88647462027 Active Tesfaye Sherman MD Active B-12 1000 MCG ORAL LOZG 1 tab po daily CYANOCOBAL STANTON 83587685346 Active Tesfaye Sherman MD Active VITAMIN D3 2000 UNIT TABS 1 daily, for vitamin D deficiency 2014 CHOLECALCIFEROL 39476297780 No Longer Active Tesfaye Sherman MD Active TIZANIDINE HCL 2 MG TABS take 1-2 tablet by mouth ev [place] day at bedtime at 9pm PRN TIZANIDINE HCL 46172511735 Active Tesfaye Owusu Active ZITHROMAX 250 MG TAB 2 po today, then 1 po q days 2-5 AZITHROMYCIN 73841509408 No Longer Active Tesfaye Sherman MD Acti ve BACTRIM DS 800-160 MG TAB 1 tab by mouth twice daily 2 TRIMETHOPRIM-SULFAMETHOXAZOLE 21552586941 No Longer Active Tesfaye Sherman MD Active PRELIEF 340 (65-50) MG (CA-P) ORAL TABS CALCIUM GLYCEROPHOSPHATE 99128462838 Active Tesfaye Sherman MD Active [facility] NIACIN FLUSH FREE 400-100 MG CAPS 1 daily NIACIN-INOSITOL 69543125684 Active Kayla Cooper MD Active DIFLUCAN 150 MG TABS 1 qd FLUCONAZOLE 21748 382776 No Longer Active Kayla Cooper MD Active FLUTICASONE PROPIONATE 50 MCG/ACT SUSP 1 spray each nostril twice daily FLUTICASONE PROPIONATE 33802098033 Active Tesfaye armenta MD Active LOVASTATIN 20 MG TABS Take 1 tablet by mouth daily LOVASTATIN 34036311934 No Longer Active Tsefaye Sherman MD Active MELOXICAM 7.5 MG TABS 1 tablet by mouth daily M ELOXICAM 06952127707 No Longer Active Tesfaye Sherman MD Active GABAPENTIN 300 MG CAPS Take two tablets by mouth every evening GABAPENTIN 95681574773 No Longer Active Edith Burch MD Active OXYCODONE-ACETAMINOPHEN 5-325 MG TABS Take one tablet by mouth every 6 hours as needed. Max 12 tabs/day as needed OXYCODONE-ACETAMINOP HEN 01800966348 Active Tesfaye Sherman MD Active CYMBALTA 60 MG CPEP Take 1 tablet by mouth daily D ULOXETINE HCL 57091294548 Active Kayla Cooper MD Active CLONAZEPAM 0.5 MG TABS Take one tablet in the morning and 1.5 table t at 7pm CLONAZEPAM 10212930207 Active Kayla Cooper MD Active BACLOFEN 10 MG TABS Take one tablet by mouth three times a day BACLOFEN 40044952221 Active Kayla Cooper MD Active GABAPENTIN 300 MG CAPS Take two tablets by mouth every evening GABAPENTIN 300 MG CAPS 650010 GABAPENTIN Inactive MELOXICAM 7.5 MG TABS 1 tablet by mouth daily MELOXICAM 7.5 MG TABS 628191 MELOXICAM Inactive LOVASTATIN 20 MG TABS Take 1 tablet by mouth daily 201 02/12/20 LOVASTATIN 20 MG TABS 462120 LOVASTATIN Inactive DIFLUCAN 150 MG TABS 1 qd DIFLUCAN 150 MG T ABS 19760712 FLUCONAZOLE Inactive VITAMIN D3 2000 UNIT TABS 1 daily, for vitamin D deficiency 2014 VITAMIN D3 2000 UNIT TABS CHOLECALCIFEROL Inacti ve AMOXICILLIN 500 MG CAPS 1 cap by mouth three times a day AMOXICILLIN 500 MG CAPS 349610 AMOXICILLIN Inactive BACTRIM DS 800-160 MG TAB 1 tab by mouth twice daily X 10 DAYS 2 BACTRIM DS 800-160 MG TAB 220015 TRIMETHOPRIM-SULFAMETH OXAZOLE Inactive TRIMETHOPRIM 100 MG TABS 1/2 qd TRIMETHOPRI M 100 MG TABS 189235 TRIMETHOPRIM Inactive CETIRIZINE HCL 5 MG TABS Take 1 tablet by mouth daily CETIRIZINE HCL 5 MG TABS 5456542 CETIRIZINE HCL Inactive PRAMIPEXOLE DIHYDROCHLORIDE 0.125 MG ORAL TABS take 1 tablet po qhs for restless leg syndrome. PRAMIPEXOLE DIHYDROC HLORIDE 0.125 MG ORAL TABS 119395 PRAMIPEXOLE DIHYDROCHLORIDE Inactive MIRTAZAPINE 15 MG ORAL TABS 1/2 tab by mouth at bedtime. MIRTAZAPINE 15 MG ORAL TABS 257667 MIRTAZAPINE Inactive DIFLUCAN 100 MG TAB 1 tablet by mouth daily X 3 DAYS 2 DIFLUCAN 100 MG TAB 960998 FLUCONAZOLE Inactive DIFLUCAN 100 MG TABS 1 tablet by mouth every other day for 2 dos es DIFLUCAN 100 MG TABS 869149 FLUCONAZOLE Inactive CEFTIN 250 MG TAB 1 tablet twice daily x 7 days 11/19 CEFTIN 250 MG TAB 898166 CEFUROXIME AXETIL Inactive BACTRIM DS 800-160 MG TAB 1 tab by mouth twice daily 2 BACTRIM DS 800-160 MG TAB 19830105 TRIMETHOPRIM-SULFAMETHOXAZOLE Inac tive ZITHROMAX 250 MG TAB 2 po today, then 1 po q days 2-5 ZITHROMAX 250 MG TAB 3394787 AZITHROMYCIN Inactive BACTRIM DS 800-160 MG TAB [...] daily 2 BACTRIM DS 800-160 MG TAB 081016 TRIMETHOPRIM-SULFAMETHOXAZOLE Inac tive BACTRIM DS 800-160 MG TAB 1 tab by mouth twice daily 2 BACTRIM DS 800-160 MG TAB 19830105 TRIMETHOPRIM-SULFAMETHOXAZOLE Inac tive DIFLUCAN 100 MG TAB 1 tablet by mouth daily DIFLUCAN 100 MG TAB 489676 FLUCONAZOLE Inactive Advance Directives Directive Description Start [...] mg/dL Encounters Code Encounter Date Provider Facility CPT-[id number] Level 4 Est. Patient 09:14:56 CDT Tesfaye pearson MD [facility] CPT-10934 Level 4 Est. Patient 18:40:25 SOFTWARE SUPPORT ENGINEER Tesfaye pearson MD [facility] CPT-67219 Level 4 Est. Patient 18:13:07 SOFTWARE SUPPORT ENGINEER Tesfaye pearson MD [facility] CPT-70849 Level 3 Est. Patient 10:46:32 CDT Rj cotto DO [facility] CPT-53969 Level 4 Est. Patient 20:19:25 CDT Tesfaye pearson MD [facility] CPT-96397 Level 3 Est. Patient 09:07:31 CDT Tesfaye pearson MD [facility] CPT-70593 Level 4 Est. Patient 13:12:56 CDT Tesfaye pearson MD [facility]-16147 Level 4 Est. Patient 21:24:55 SOFTWARE SUPPORT ENGINEER Tesfaye pearson MD [facility] CPT-05800 Level 3 Est. Patient 13:45:04 SOFTWARE SUPPORT ENGINEER Tesfaye pearson MD [facility] CPT-14838 Level 4 Est. Patient 13:50:45 CDT Tesfaye pearson MD [facility] CPT-58591 Level 3 Est. Patient 10:16:10 CDT Tesfaye pearson MD [facility] CPT-48080 Level 3 Est. Patient 16:36:07 SOFTWARE SUPPORT ENGINEER Kayla jameson MD [facility]-01638 Level 4 Est. Patient 16:00:14 SOFTWARE SUPPORT ENGINEER Tesfaye pearson MD [facility] CPT-56103 Level 4 Est. Patient 11:02:24 SOFTWARE SUPPORT ENGINEER Tesfaye pearson MD [facility] CPT-86923 Level 3 Est. Patient 20:21:43 SOFTWARE SUPPORT ENGINEER Kayla jameson MD [facility] CPT-86363 Level 3 Est. Patient 13:27:28 SOFTWARE SUPPORT ENGINEER Kayla jameson MD [facility]-71482 Level 4 Est. Patient 15:57:17 SOFTWARE SUPPORT ENGINEER Tesfaye pearson MD [facility] CPT-34657 Level 3 New Patient 13:25:47 CDT Tesfaye kidd MD [facility] CPT-01543 Level 3 New Patient 17:22:21 CDT Kayla angel MD [facility] Procedures Code Procedure Name Date Entry Date Standard Desc ription CPT-G0438 Initial Annual Wellness Exam 11:23:17 CD T CPT-J2930 Solu Medrol 125 mg (Methyl Prednisolone Sodium Succinate) 17:29:12 SOFTWARE SUPPORT ENGINEER CPT-86325 Abx/Therapy Injection 17:29:11 SOFTWARE SUPPORT ENGINEER CPT-J2930 Solu Medrol 125 mg (Methyl Prednisolone Sodium Succinate) 12:34:38 SOFTWARE SUPPORT ENGINEER CPT-J3420 Vitamin B12 1000mcg (Cyanocobalamin) 09:12:55 CDT CPT-J3420 Vitamin B12 1000mcg (Cyanocobalamin) 16:28:06 SOFTWARE SUPPORT ENGINEER CPT-00117 Venipuncture Draw Fee 08:39:53 CDT CPT-J3420 Vitamin B12 1000mcg (Cyanocobalamin) 08:46:22 CDT CPT-31349 Abx/Therapy Injection 08:46:22 CDT CPT-J3420 Vitamin B12 1000mcg (Cyanocobalamin) 08:41:26 CDT CPT-07648 Abx/Therapy Injection 08:41:26 CDT CPT-J3420 Vitamin B12 1000mcg (Cyanocobalamin) 08:57:15 CDT CPT-99963 Abx/Therapy Injection 08:57:15 CDT CPT-J3420 Vitamin B12 1000mcg (Cyanocobalamin) 10:59:03 CDT CPT-53398 Abx/Therapy Injection 10:59:03 CDT CPT-J3420 Vitamin B12 1000mcg (Cyanocobalamin) 15:05:39 CDT CPT-66998 Abx/Therapy Injection 15:05:39 CDT CPT-J3420 Vitamin B12 1000mcg (Cyanocobalamin) 13:50:45 CDT CPT-J3420 Vitamin B12 1000mcg (Cyanocobalamin) 08:48:55 CDT CPT-53567 Abx/Therapy Injection 08:48:55 CDT CPT-J3420 Vitamin B12 1000mcg (Cyanocobalamin) 09:14:54 CDT CPT-08899 Abx/Therapy Injection 09:14:54 CDT CPT-J3420 Vitamin B12 1000mcg (Cyanocobalamin) 09:06:06 CDT CPT-64863 Abx/Therapy Injection 09:06:06 CDT CPT-J3420 Vitamin B12 1000mcg (Cyanocobalamin) 09:49:14 CDT CPT-58070 Abx/Therapy Injection 09:49:14 CDT CPT-J3420 Vitamin B12 1000mcg (Cyanocobalamin) 09:10:30 SOFTWARE SUPPORT ENGINEER CPT-05331 Abx/Therapy Injection 09:10:30 SOFTWARE SUPPORT ENGINEER CPT-J3420 Vitamin B12 1000mcg (Cyanocobalamin) 09:11:07 SOFTWARE SUPPORT ENGINEER CPT-06274 Abx/Therapy Injection 09:11:07 SOFTWARE SUPPORT ENGINEER CPT-J3420 Vitamin B12 1000mcg (Cyanocobalamin) 09:57:03 SOFTWARE SUPPORT ENGINEER CPT-21647 Abx/Therapy Injection 09:57:03 SOFTWARE SUPPORT ENGINEER CPT-J3420 Vitamin B12 1000mcg (Cyanocobalamin) 09:23:21 SOFTWARE SUPPORT ENGINEER CPT-09968 Abx/Therapy Injection 09:23:21 SOFTWARE SUPPORT ENGINEER CPT-18068 Urine Dip (Floor Use Only) 20:21:44 SOFTWARE SUPPORT ENGINEER 201 02/12/11 CPT-61257 UA Dip Auto (Floor Use Only) 10:04:39 SOFTWARE SUPPORT ENGINEER 2 CPT-58382 Urine Dip (Floor Use Only) 13:27:28 SOFTWARE SUPPORT ENGINEER 201 02/12/01 CPT-44162 Bladder Scan 13:27:28 SOFTWARE SUPPORT ENGINEER CPT-93722 Abd single AP View 14:30:51 SOFTWARE SUPPORT ENGINEER CPT-OV Office Visit 10:15:43 CDT CPT-03142 Urine Dip (Floor Use Only) 17:22:21 CDT 201 02/09/02 CPT-10251 Bladder Scan 17:22:21 CDT
--- OUTSIDE RECORDS SUMMARY | 2020-05-05 12:09 | XMS REPORT | Clinical Summary ---
Author Author Talon, Jeri Wood Organization [facility] Address Unknown Phone Unavailable Allergies, Adverse Reactions, [...] ORAL CAPS 1 tablet daily LACTOBACI LLUS 11432162843 Active Edith Burch MD Active CYMBALTA 60 MG CPEP Take 1 tablet by mouth daily 1 DULOXETINE HCL 17933531907 No Longer Active Edith Burch MD Active CYMBALTA 30 MG CPEP 1 cap by mouth daily with 60mg 201 05/09/11 DULOXETINE HCL 03555526664 No Longer Active Edith Burch MD Activ e FISH OIL 1000 MG CPDR 1 pill by mouth daily for cholesterol 04/18 OMEGA- 3 FATTY ACIDS 88060979045 Active Rosa Jaffe LPN Acti ve RED YEAST RICE 600 MG CAPS 1 pill by mouth daily RED YEAST RICE EXTRACT 75014187529 Active Rosa Jaffe LPN Activ e VENLAFAXINE HCL 37.5 MG TABS 1/4 tab po titrating up to full dose 2 VENLAFAXINE HCL 82138150898 Active Chelsea Barba APRN Activ e DIFLUCAN 100 MG TAB 1 tablet by mouth daily FLU CONAZOLE 97317854060 No Longer Active Tesfaye Sherman MD Active BACTRIM DS 800-160 MG TAB 1 tab by mouth twice daily 2 TRIMETHOPRIM-SULFAMETHOXAZOLE 53658320226 No Longer Active Tesfaye Sherman MD Active BACTRIM DS 800-160 MG TAB 1 tab by mouth twice daily 2 TRIMETHOPRIM-SULFAMETHOXAZOLE 45067439137 No Longer Active Tesfaye Sherman MD Active DIFLUCAN 150 MG TAB 1 tablet by mouth daily FLU CONAZOLE 57668730841 No Longer Active Tesfaye Sherman MD Active BACTRIM DS 800-160 MG TAB 1 tab by mouth twice daily 2 TRIMETHOPRIM-SULFAMETHOXAZOLE 04933639991 No Longer Active Tesfaye Sherman MD Active ROPINIROLE HCL 0.25 MG ORAL TABS 1 TAB PO Q HS ROPINIROLE HCL 83739192186 Active Tesfaye Sherman MD Active CEFTIN 250 MG TAB 1 tablet twice daily x 7 days 11/19 CEFUROXIME AXETIL 77224314068 No Longer Active Tesfaye Sherman MD Acti ve DIFLUCAN 100 MG TABS 1 tablet by mouth every other day for 2 dos es FLUCONAZOLE 00804905582 No Longer Active Tesfaye Sherman MD Active DIFLUCAN 100 MG TAB 1 tablet by mouth daily X 3 DAYS 2 FLUCONAZOLE 79685803825 No Longer Active Rj Moss DO Active MIRTAZAPINE 15 MG ORAL TABS 1/2 tab by mouth at bedtime. MIRTAZAPINE 17312897488 No Longer Active Tesfaye Sherman MD Acti ve BACTRIM DS 800-160 MG TAB 1 tab by mouth twice daily 2 TRIMETHOPRIM-SULFAMETHOXAZOLE 19336298090 No Longer Active Tesfaye Sherman MD Active PRAMIPEXOLE DIHYDROCHLORIDE 0.125 MG ORAL TABS take 1 tablet po qhs for restless leg syndrome. PRAMIPEXOLE DIHYDROCHLORIDE 23198295647 No Longer Active Tesfaye Sherman MD Active MAGNESIUM 400 MG ORAL TABS 1 tab po daily MAGNESI UM 23914126304 Active Chelsea Barba APRN Active SUDAFED 24 HOUR 240 MG ORAL [id number] 1 tab po daily PSEUDOEPHEDRINE HCL 34916181520 Active Chelsea Barba APRN A ctive CETIRIZINE HCL 5 MG TABS Take 1 tablet by mouth daily CETIRIZINE HCL 38680722584 No Longer Active Chelsea Barba APRN Acti ve TRIMETHOPRIM 100 MG TABS 1/2 qd TRIMETHOPRIM 97212120311 No Longer Active Chelsea Barba [employer] Active BACTRIM DS 800-160 MG TAB 1 tab by mouth twice daily 2 TRIMETHOPRIM-SULFAMETHOXAZOLE 81315291667 No Longer Active Tesfaye Sherman MD Active BACTRIM DS 800-160 MG TAB 1 tab by mouth twice daily X 10 DAYS 2 TRIMETHOPRIM-SULFAMETHOXAZOLE 70065130635 No Longer Active Umer Sherman MD Active AMOXICILLIN 500 MG CAPS 1 cap by mouth three times a day AMOXICILLIN 39064179060 No Longer Active Adriana Arredondo Active MECLIZINE HCL 25 MG TAB one tab po qday prn dizziness MECLIZINE HCL 33178574161 Active Tesfaye Sherman MD Active B-12 1000 MCG ORAL LOZG 1 tab po daily CYANOCOBAL STANTON 66100562590 Active Tesfaye Sherman MD Active VITAMIN D3 2000 UNIT TABS 1 daily, for vitamin D deficiency 2014 CHOLECALCIFEROL 92098033987 No Longer Active Tesfaye Sherman MD Active TIZANIDINE HCL 2 MG TABS take 1-2 tablet by mouth at bedtime at 9pm PRN TIZANIDINE HCL 84703054168 Active Tesfaye Owusu Active ZITHROMAX 250 MG TAB 2 po today, then 1 po q days 2-5 AZITHROMYCIN 90291231096 No Longer Active Tesfaye Sherman MD Acti ve BACTRIM DS 800-160 MG TAB 1 tab by mouth twice daily 2 TRIMETHOPRIM-SULFAMETHOXAZOLE 46636616613 No Longer Active Tesfaye Sherman MD Active PRELIEF 340 (65-50) MG (CA-P) ORAL TABS CALCIUM GLYCEROPHOSPHATE 22756979620 Active Tesfaye Sherman MD Active [facility] NIACIN FLUSH FREE 400-100 MG CAPS 1 daily NIACIN-INOSITOL 21987410919 Active Kayla Cooper MD Active DIFLUCAN 150 MG TABS 1 qd FLUCONAZOLE 74265 270291 No Longer Active Kayla Cooper MD Active FLUTICASONE PROPIONATE 50 MCG/ACT SUSP 1 spray each nostril twice daily FLUTICASONE PROPIONATE 69792786248 Active Tesfaye armenta MD Active LOVASTATIN 20 MG TABS Take 1 tablet by mouth daily LOVASTATIN 90468455729 No Longer Active Tesfaye Sherman MD Active MELOXICAM 7.5 MG TABS 1 tablet by mouth daily M ELOXICAM 87533159192 No Longer Active Tesfaye Sherman MD Active GABAPENTIN 300 MG CAPS Take two tablets by mouth every evening GABAPENTIN 36231987417 No Longer Active Edith Burch MD Active OXYCODONE-ACETAMINOPHEN 5-325 MG TABS Take one tablet by mouth every 6 hours as needed. Max 12 tabs/day as needed OXYCODONE-ACETAMINOP HEN 20806363514 Active Tesfaye Sherman MD Active CLONAZEPAM 0.5 MG TABS Take one tablet in the morning and 1.5 table t at 7pm CLONAZEPAM 74440767666 Active Kayla Cooper MD Active BACLOFEN 10 MG TABS Take one tablet by mouth three times a day BACLOFEN 74975650663 Active Kayla Cooper MD Active GABAPENTIN 300 MG CAPS Take two tablets by mouth every evening GABAPENTIN 300 MG CAPS 676815 GABAPENTIN Inactive MELOXICAM 7.5 MG TABS 1 tablet by mouth daily MELOXICAM 7.5 MG TABS 605558 MELOXICAM Inactive LOVASTATIN 20 MG TABS Take 1 tablet by mouth daily 201 02/12/20 LOVASTATIN 20 MG TABS 700974 LOVASTATIN Inactive DIFLUCAN 150 MG TABS 1 qd DIFLUCAN 150 MG T ABS 293513 FLUCONAZOLE Inactive VITAMIN D3 2000 UNIT TABS 1 daily, for vitamin D deficiency 2014 VITAMIN D3 2000 UNIT TABS CHOLECALCIFEROL Inacti ve AMOXICILLIN 500 MG CAPS 1 cap by mouth three times a day AMOXICILLIN 500 MG CAPS 978899 AMOXICILLIN Inactive BACTRIM DS 800-160 MG TAB 1 tab by mouth twice daily X 10 DAYS 2 BACTRIM DS 800-160 MG TAB 19830105 TRIMETHOPRIM-SULFAMETH OXAZOLE Inactive TRIMETHOPRIM 100 MG TABS 1/2 qd TRIMETHOPRI M 100 MG TABS 19830102 TRIMETHOPRIM Inactive CETIRIZINE HCL 5 MG TABS Take 1 tablet by mouth daily CETIRIZINE HCL 5 MG TABS 1043578 CETIRIZINE HCL Inactive PRAMIPEXOLE DIHYDROCHLORIDE 0.125 MG ORAL TABS take 1 tablet po qhs for restless leg syndrome. PRAMIPEXOLE DIHYDROC HLORIDE 0.125 MG ORAL TABS 241912 PRAMIPEXOLE DIHYDROCHLORIDE Inactive MIRTAZAPINE 15 MG ORAL TABS 1/2 tab by mouth at bedtime. MIRTAZAPINE 15 MG ORAL TABS 802130 MIRTAZAPINE Inactive DIFLUCAN 100 MG TAB 1 tablet by mouth daily X 3 DAYS 2 DIFLUCAN 100 MG TAB 319859 FLUCONAZOLE Inactive DIFLUCAN 100 MG TABS 1 tablet by mouth every other day for 2 dos es DIFLUCAN 100 MG TABS 998824 FLUCONAZOLE Inactive CEFTIN 250 MG TAB 1 tablet twice daily x 7 days 11/19 CEFTIN 250 MG TAB 306518 CEFUROXIME AXETIL Inactive CYMBALTA 30 MG CPEP 1 cap by mouth daily with 60mg 201 05/09/11 CYMBALTA 30 MG CPEP 961764 DULOXETINE HCL Inactive CYMBALTA 60 MG CPEP Take 1 tablet by mouth daily 05/13 CYMBALTA 60 MG CPEP 864225 DULOXETINE HCL Inactive BACTRIM DS 800-160 MG TAB 1 tab by mouth twice daily 2 BACTRIM DS 800-160 MG TAB 049759 TRIMETHOPRIM-SULFAMETHOXAZOLE Inac tive ZITHROMAX 250 MG TAB 2 po today, then 1 po q days 2-5 ZITHROMAX 250 MG TAB 2365414 AZITHROMYCIN Inactive BACTRIM DS 800-160 MG TAB [...] by mouth daily DIFLUCAN 100 MG TAB 820878 FLUCONAZOLE Inactive Advance Directives Directive Description Start [...] ... - Chemistry sodium, serum 144 mmol/L 561-314 2731/06/14 carbon dioxide, venous blood 29.4 mmol/L 21.0-32 .0 potassium, serum 4.4 mmol/L 3.5-5.2 chloride, serum 108 mmol/L 98-107 blood glucose 100 mg/dL 65-110 urea nitrogen, blood 9 mg/dL 7-18 creatinine, serum 0.67 mg/dL 0.55-1.30 alanine aminotransferase (SGPT), serum 24 U/L 12-78 aspartate aminotransferase (SGOT), serum 15 U/L 15-37 calcium, serum 9.3 mg/dL 8.5-10.1 bilirubin, serum, total 0.50 mg/dL 0.00-1.00 cholesterol, serum 268 mg/dL 968-614 5815/06/14 triglyceride, serum, fasting 126 mg/dL 30-200 HDL [...] mg/dL Encounters Code Encounter Date Provider Facility CPT-16770 Level 4 Est. Patient 13:24:25 CDT Stephanie MERCADO [facility] CPT-17227 Level 4 Est. Patient 09:14:56 CDT Tesfaye pearson MD [facility] CPT-13135 Level 4 Est. Patient 18:40:25 MAPPING EDITOR Tesfaye pearson MD [facility] CPT-71263 Level 4 Est. Patient 18:13:07 MAPPING EDITOR Tesfaye pearson MD [facility]-96819 Level 3 Est. Patient 10:46:32 CDT Rj cotto DO [facility]-47546 Level 4 Est. Patient 20:19:25 CDT Tesfaye pearson MD [facility]-11022 Level 3 Est. Patient 09:07:31 CDT Tesfaye pearson MD [facility]-42430 Level 4 Est. Patient 13:12:56 CDT Tesfaye pearson MD [facility]-65204 Level 4 Est. Patient 21:24:55 MAPPING EDITOR Tesfaye pearson MD [facility]-59877 Level 3 Est. Patient 13:45:04 MAPPING EDITOR Tesfaye pearson MD [facility] CPT-87600 Level 4 Est. Patient 13:50:45 CDT Tesfaye pearson MD [facility] CPT-82453 Level 3 Est. Patient 10:16:10 CDT Tesfaye pearson MD [facility] CPT-85773 Level 3 Est. Patient 16:36:07 MAPPING EDITOR Kayla jameson MD [facility]-58478 Level 4 Est. Patient 16:00:14 MAPPING EDITOR Tesfaye pearson MD [facility]-98854 Level 4 Est. Patient 11:02:24 MAPPING EDITOR Tesfaye pearson MD [facility]-66123 Level 3 Est. Patient 20:21:43 MAPPING EDITOR Kayla jameson MD [facility]-02280 Level 3 Est. Patient 13:27:28 MAPPING EDITOR Kayla jameson MD [facility]-93653 Level 4 Est. Patient 15:57:17 MAPPING EDITOR Tesfaye pearson MD [facility] -[facility] CPT-20180 Level 3 New Patient 13:25:47 CDT Tesfaye kidd MD [facility] -[facility] CPT-85691 Level 3 New Patient 17:22:21 CDT Kayla angel MD [facility] Procedures Code Procedure Name Date Entry Date Standard Desc ription CPT-49426 Prv Med New Pt 40-64 yrs 18:19:25 CDT 2016 CPT-00319 Foot, right, comp min 3V - XRAY USE ONLY 10:38:34 CDT CPT-G0439 Subsequent Annual Wellness Exam 13:55:04 CDT CPT-G0438 Initial Annual Wellness Exam 11:23:17 CD T CPT-J2930 Solu Medrol 125 mg (Methyl Prednisolone Sodium Succinate) 17:29:12 MAPPING EDITOR CPT-96091 Abx/Therapy Injection 17:29:11 MAPPING EDITOR CPT-J2930 Solu Medrol 125 mg (Methyl Prednisolone Sodium Succinate) 12:34:38 MAPPING EDITOR CPT-J3420 Vitamin B12 1000mcg (Cyanocobalamin) 09:12:55 CDT CPT-J3420 Vitamin B12 1000mcg (Cyanocobalamin) 16:28:06 MAPPING EDITOR CPT-88397 Venipuncture Draw Fee 08:39:53 CDT CPT-J3420 Vitamin B12 1000mcg (Cyanocobalamin) 08:46:22 CDT CPT-74805 Abx/Therapy Injection 08:46:22 CDT CPT-J3420 Vitamin B12 1000mcg (Cyanocobalamin) 08:41:26 CDT CPT-20833 Abx/Therapy Injection 08:41:26 CDT CPT-J3420 Vitamin B12 1000mcg (Cyanocobalamin) 08:57:15 CDT CPT-94446 Abx/Therapy Injection 08:57:15 CDT CPT-J3420 Vitamin B12 1000mcg (Cyanocobalamin) 10:59:03 CDT CPT-61585 Abx/Therapy Injection 10:59:03 CDT CPT-J3420 Vitamin B12 1000mcg (Cyanocobalamin) 15:05:39 CDT CPT-74402 Abx/Therapy Injection 15:05:39 CDT CPT-J3420 Vitamin B12 1000mcg (Cyanocobalamin) 13:50:45 CDT CPT-J3420 Vitamin B12 1000mcg (Cyanocobalamin) 08:48:55 CDT CPT-06728 Abx/Therapy Injection 08:48:55 CDT CPT-J3420 Vitamin B12 1000mcg (Cyanocobalamin) 09:14:54 CDT CPT-59929 Abx/Therapy Injection 09:14:54 CDT CPT-J3420 Vitamin B12 1000mcg (Cyanocobalamin) 09:06:06 CDT CPT-91429 Abx/Therapy Injection 09:06:06 CDT CPT-J3420 Vitamin B12 1000mcg (Cyanocobalamin) 09:49:14 CDT CPT-72615 Abx/Therapy Injection 09:49:14 CDT CPT-J3420 Vitamin B12 1000mcg (Cyanocobalamin) 09:10:30 MAPPING EDITOR CPT-69817 Abx/Therapy Injection 09:10:30 MAPPING EDITOR CPT-J3420 Vitamin B12 1000mcg (Cyanocobalamin) 09:11:07 MAPPING EDITOR CPT-24254 Abx/Therapy Injection 09:11:07 MAPPING EDITOR CPT-J3420 Vitamin B12 1000mcg (Cyanocobalamin) 09:57:03 MAPPING EDITOR CPT-68739 Abx/Therapy Injection 09:57:03 MAPPING EDITOR CPT-J3420 Vitamin B12 1000mcg (Cyanocobalamin) 09:23:21 MAPPING EDITOR CPT-08040 Abx/Therapy Injection 09:23:21 MAPPING EDITOR CPT-75253 Urine Dip (Floor Use Only) 20:21:44 MAPPING EDITOR 201 02/12/11 CPT-15700 UA Dip Auto (Floor Use Only) 10:04:39 MAPPING EDITOR 2 CPT-33802 Urine Dip (Floor Use Only) 13:27:28 MAPPING EDITOR 201 02/12/01 CPT-16383 Bladder Scan 13:27:28 MAPPING EDITOR CPT-50827 Abd single AP View 14:30:51 MAPPING EDITOR CPT-OV Office Visit 10:15:43 CDT CPT-70311 Urine Dip (Floor Use Only) 17:22:21 CDT 201 02/09/02 CPT-18618 Bladder Scan 17:22:21 CDT
--- OUTSIDE RECORDS SUMMARY | 2020-05-05 12:09 | XMS REPORT | Clinical Summary ---
Author Author Jeri Hanley Organization [employer] Address Unknown Phone Unavailable Allergies, Adverse Reactions, [...] for cholesterol 04/18 OMEGA- 3 FATTY ACIDS 85669896559 Active Rosa Jaffe LPN Acti ve RED YEAST RICE 600 MG CAPS 1 pill by mouth daily RED YEAST RICE EXTRACT 81708168660 Active Rosa Jaffe LPN Activ e VENLAFAXINE HCL 37.5 MG TABS 1/4 tab po titrating up to full dose 2 VENLAFAXINE HCL 00632348563 Active Chelsea Barba APRN Activ e DIFLUCAN 100 MG TAB 1 tablet by mouth daily FLU CONAZOLE 15577586604 No Longer Active Tesfaye Sherman MD Active BACTRIM DS 800-160 MG TAB 1 tab by mouth twice daily 2 TRIMETHOPRIM-SULFAMETHOXAZOLE 53870704455 No Longer Active Tesfaye Sherman MD Active BACTRIM DS 800-160 MG TAB 1 tab by mouth twice daily 2 TRIMETHOPRIM-SULFAMETHOXAZOLE 68265382003 No Longer Active Tesfaye Sherman MD Active DIFLUCAN 150 MG TAB 1 tablet by mouth daily FLU CONAZOLE 30872119729 No Longer Active Tesfaye Sherman MD Active BACTRIM DS 800-160 MG TAB 1 tab by mouth twice daily 2 TRIMETHOPRIM-SULFAMETHOXAZOLE 53475768452 No Longer Active Tesfaye Sherman MD Active ROPINIROLE HCL 0.25 MG ORAL TABS 1 TAB PO Q HS ROPINIROLE HCL 73582597865 Active Tesfaye Sherman MD Active CYMBALTA 30 MG CPEP 1 cap by mouth daily with 60mg DULOXETINE HCL 25709477690 Active Tesfaye Sherman MD Active CEFTIN 250 MG TAB 1 tablet twice daily x 7 days 11/19 CEFUROXIME AXETIL 88336233561 No Longer Active Tesfaye Sherman MD Acti ve DIFLUCAN 100 MG TABS 1 tablet by mouth every other day for 2 dos es FLUCONAZOLE 42295982275 No Longer Active Tesfaye Sherman MD Active DIFLUCAN 100 MG TAB 1 tablet by mouth daily X 3 DAYS 2 FLUCONAZOLE 11885419380 No Longer Active Rj Moss DO Active MIRTAZAPINE 15 MG ORAL TABS 1/2 tab by mouth at bedtime. MIRTAZAPINE 69873856090 No Longer Active Tesfaye Sherman MD Acti ve BACTRIM DS 800-160 MG TAB 1 tab by mouth twice daily 2 TRIMETHOPRIM-SULFAMETHOXAZOLE 25207145098 No Longer Active Tesfaye Sherman MD Active PRAMIPEXOLE DIHYDROCHLORIDE 0.125 MG ORAL TABS take 1 tablet po qhs for restless leg syndrome. PRAMIPEXOLE DIHYDROCHLORIDE 96655957637 No Longer Active Tesfaye Sherman MD Active MAGNESIUM 400 MG ORAL TABS 1 tab po daily MAGNESI UM 11858791681 Active Chelsea Barba APRN Active SUDAFED 24 HOUR 240 MG ORAL [id number] 1 tab po daily PSEUDOEPHEDRINE HCL 18528437724 Active Chelsea Barba APRN A ctive CETIRIZINE HCL 5 MG TABS Take 1 tablet by mouth daily CETIRIZINE HCL 60683607540 No Longer Active Chelsea Barba APRN Acti ve TRIMETHOPRIM 100 MG TABS 1/2 qd TRIMETHOPRIM 08253465347 No Longer Active Chelsea Barba APRN Active BACTRIM DS 800-160 MG TAB 1 tab by mouth twice daily 2 TRIMETHOPRIM-SULFAMETHOXAZOLE 52139098932 No Longer Active Tesfaye Sherman MD Active BACTRIM DS 800-160 MG TAB 1 tab by mouth twice daily X 10 DAYS 2 TRIMETHOPRIM-SULFAMETHOXAZOLE 79434630264 No Longer Active Umer Sherman MD Active AMOXICILLIN 500 MG CAPS 1 cap by mouth three times a day AMOXICILLIN 21556769664 No Longer Active Adriana Arnulfo Active MECLIZINE HCL 25 MG TAB one tab po qday prn dizziness MECLIZINE HCL 12702608614 Active Tesfaye Sherman MD Active B-12 1000 MCG ORAL LOZG 1 tab po daily CYANOCOBAL STANTON 85323022102 Active Tesfaye Sherman MD Active VITAMIN D3 2000 UNIT TABS 1 daily, for vitamin D deficiency 2014 CHOLECALCIFEROL 49345125777 No Longer Active Tesfaye Sherman MD Active TIZANIDINE HCL 2 MG TABS take 1-2 tablet by mouth ev [place] day at bedtime at 9pm PRN TIZANIDINE HCL 47204972956 Active Tesfaye Owusu Active ZITHROMAX 250 MG TAB 2 po today, then 1 po q days 2-5 AZITHROMYCIN 83926125567 No Longer Active Tesfaye Sherman MD Acti ve BACTRIM DS 800-160 MG TAB 1 tab by mouth twice daily 2 TRIMETHOPRIM-SULFAMETHOXAZOLE 29955943528 No Longer Active Tesfaye Sherman MD Active PRELIEF 340 (65-50) MG (CA-P) ORAL TABS CALCIUM GLYCEROPHOSPHATE 15016914809 Active Tesfaye Sherman MD Active [facility] NIACIN FLUSH FREE 400-100 MG CAPS 1 daily NIACIN-INOSITOL 96128581250 Active Kayla Cooper MD Active DIFLUCAN 150 MG TABS 1 qd FLUCONAZOLE 78890 894369 No Longer Active Kayla Cooper MD Active FLUTICASONE PROPIONATE 50 MCG/ACT SUSP 1 spray each nostril twice daily FLUTICASONE PROPIONATE 42282642411 Active Tesfaye armneta MD Active LOVASTATIN 20 MG TABS Take 1 tablet by mouth daily LOVASTATIN 17359990235 No Longer Active Tesfaye Sherman MD Active MELOXICAM 7.5 MG TABS 1 tablet by mouth daily M ELOXICAM 75843607938 No Longer Active Tesfaye Sherman MD Active GABAPENTIN 300 MG CAPS Take two tablets by mouth every evening GABAPENTIN 78386446129 No Longer Active Edith Burch MD Active OXYCODONE-ACETAMINOPHEN 5-325 MG TABS Take one tablet by mouth every 6 hours as needed. Max 12 tabs/day as needed OXYCODONE-ACETAMINOP HEN 71338854316 Active Tesfaye Sherman MD Active CYMBALTA 60 MG CPEP Take 1 tablet by mouth daily D ULOXETINE HCL 32923771013 Active Kayla Cooper MD Active CLONAZEPAM 0.5 MG TABS Take one tablet in the morning and 1.5 table t at 7pm CLONAZEPAM 68432206411 Active Kayla Cooper MD Active BACLOFEN 10 MG TABS Take one tablet by mouth three times a day BACLOFEN 34697941212 Active Kayla Cooper MD Active GABAPENTIN 300 MG CAPS Take two tablets by mouth every evening GABAPENTIN 300 MG CAPS 427109 GABAPENTIN Inactive MELOXICAM 7.5 MG TABS 1 tablet by mouth daily MELOXICAM 7.5 MG TABS 185198 MELOXICAM Inactive LOVASTATIN 20 MG TABS Take 1 tablet by mouth daily 201 02/12/20 LOVASTATIN 20 MG TABS 909498 LOVASTATIN Inactive DIFLUCAN 150 MG TABS 1 qd DIFLUCAN 150 MG T ABS 442485 FLUCONAZOLE Inactive VITAMIN D3 2000 UNIT TABS 1 daily, for vitamin D deficiency 2014 VITAMIN D3 2000 UNIT TABS CHOLECALCIFEROL Inacti ve AMOXICILLIN 500 MG CAPS 1 cap by mouth three times a day AMOXICILLIN 500 MG CAPS 386350 AMOXICILLIN Inactive BACTRIM DS 800-160 MG TAB 1 tab by mouth twice daily X 10 DAYS 2 BACTRIM DS 800-160 MG TAB 19830105 TRIMETHOPRIM-SULFAMETH OXAZOLE Inactive TRIMETHOPRIM 100 MG TABS 1/2 qd TRIMETHOPRI M 100 MG TABS 19830102 TRIMETHOPRIM Inactive CETIRIZINE HCL 5 MG TABS Take 1 tablet by mouth daily CETIRIZINE HCL 5 MG TABS 9937018 CETIRIZINE HCL Inactive PRAMIPEXOLE DIHYDROCHLORIDE 0.125 MG ORAL TABS take 1 tablet po qhs for restless leg syndrome. PRAMIPEXOLE DIHYDROC HLORIDE 0.125 MG ORAL TABS 086142 PRAMIPEXOLE DIHYDROCHLORIDE Inactive MIRTAZAPINE 15 MG ORAL TABS 1/2 tab by mouth at bedtime. MIRTAZAPINE 15 MG ORAL TABS 404073 MIRTAZAPINE Inactive DIFLUCAN 100 MG TAB 1 tablet by mouth daily X 3 DAYS 2 DIFLUCAN 100 MG TAB 415297 FLUCONAZOLE Inactive DIFLUCAN 100 MG TABS 1 tablet by mouth every other day for 2 dos es DIFLUCAN 100 MG TABS 017443 FLUCONAZOLE Inactive CEFTIN 250 MG TAB 1 tablet twice daily x 7 days 11/19 CEFTIN 250 MG TAB 123590 CEFUROXIME AXETIL Inactive BACTRIM DS 800-160 MG TAB 1 tab by mouth twice daily 2 BACTRIM DS 800-160 MG TAB 19830105 TRIMETHOPRIM-SULFAMETHOXAZOLE Inac tive ZITHROMAX 250 MG TAB 2 po today, then 1 po q days 2-5 ZITHROMAX 250 MG TAB 6839002 AZITHROMYCIN Inactive BACTRIM DS 800-160 MG TAB [...] ... - Chemistry sodium, serum 144 mmol/L 317-895 8198/06/14 carbon dioxide, venous blood 29.4 mmol/L 21.0-32 .0 potassium, serum 4.4 mmol/L 3.5-5.2 chloride, serum 108 mmol/L 98-107 blood glucose 100 mg/dL 65-110 urea nitrogen, blood 9 mg/dL 7-18 creatinine, serum 0.67 mg/dL 0.55-1.30 alanine aminotransferase (SGPT), serum 24 U/L 12-78 aspartate aminotransferase (SGOT), serum 15 U/L 15-37 calcium, serum 9.3 mg/dL 8.5-10.1 bilirubin, serum, total 0.50 mg/dL 0.00-1.00 cholesterol, serum 268 mg/dL 874-193 9996/06/14 triglyceride, serum, fasting 126 mg/dL 30-200 HDL cholesterol, serum 51 mg/dL 32-96 LDL cholesterol, serum 192 mg/dL 0-130 TSH 0.83 m[iU]/mL 0.36-3.74 thyroxine, serum, free 1.03 ng/dL 0.76-1.46 uric acid, serum 3.2 mg/dL 2.6-7.2 Lab Report: UA DIP/MANUAL - Chemistry RBC, [...] mg/dL Encounters Code Encounter Date Provider Facility CPT-89744 Level 4 Est. Patient 09:14:56 CDT Tesfaye pearson MD [facility] CPT-52760 Level 4 Est. Patient 18:40:25 MUSIC THERAPY SPECIALIST Tesfaye pearson MD [facility] CPT-85106 Level 4 Est. Patient 18:13:07 MUSIC THERAPY SPECIALIST Tesfaye pearson MD [facility] CPT-30035 Level 3 Est. Patient 10:46:32 CDT Rj cotto DO [facility] CPT-59975 Level 4 Est. Patient 20:19:25 CDT Tesfaye pearson MD [facility] CPT-38183 Level 3 Est. Patient 09:07:31 CDT Tesfaye pearson MD [facility] CPT-49119 Level 4 Est. Patient 13:12:56 CDT Tesfaye pearson MD [facility] CPT-63906 Level 4 Est. Patient 21:24:55 MUSIC THERAPY SPECIALIST Tsefaye pearson MD [facility] CPT-37733 Level 3 Est. Patient 13:45:04 MUSIC THERAPY SPECIALIST Tesfaye pearson MD [facility] CPT-71196 Level 4 Est. Patient 13:50:45 CDT Tesfaye pearson MD [facility] CPT-88669 Level 3 Est. Patient 10:16:10 CDT Tesfaye pearson MD [facility] CPT-92073 Level 3 Est. Patient 16:36:07 MUSIC THERAPY SPECIALIST Kayla jameson MD [facility] CPT-16399 Level 4 Est. Patient 16:00:14 MUSIC THERAPY SPECIALIST Tesfaye pearson MD [facility] CPT-88139 Level 4 Est. Patient 11:02:24 MUSIC THERAPY SPECIALIST Tesfaye pearson MD [facility] CPT-77897 Level 3 Est. Patient 20:21:43 MUSIC THERAPY SPECIALIST Kayla jameson MD [facility] CPT-40211 Level 3 Est. Patient 13:27:28 MUSIC THERAPY SPECIALIST Kayla jameson MD [facility] CPT-50214 Level 4 Est. Patient 15:57:17 MUSIC THERAPY SPECIALIST Tesfaye pearson MD [facility] CPT-43880 Level 3 New Patient 13:25:47 CDT Tesfaye kidd MD [facility] CPT-51188 Level 3 New Patient 17:22:21 CDT Kayla angel MD [facility] Procedures Code Procedure Name Date Entry Date Standard Desc ription CPT-41968 Foot, right, comp min 3V - XRAY USE ONLY 10:38:34 CDT CPT-G0439 MC Subsequent Annual Wellness Exam 13:55:04 CDT CPT-G0438 Initial Annual Wellness Exam 11:23:17 CD T CPT-J2930 Solu Medrol 125 mg (Methyl Prednisolone Sodium Succinate) 17:29:12 MUSIC THERAPY SPECIALIST CPT-84007 Abx/Therapy Injection 17:29:11 MUSIC THERAPY SPECIALIST CPT-J2930 Solu Medrol 125 mg (Methyl Prednisolone Sodium Succinate) 12:34:38 MUSIC THERAPY SPECIALIST CPT-J3420 Vitamin B12 1000mcg (Cyanocobalamin) 09:12:55 CDT CPT-J3420 Vitamin B12 1000mcg (Cyanocobalamin) 16:28:06 MUSIC THERAPY SPECIALIST CPT-48544 Venipuncture Draw Fee 08:39:53 CDT CPT-J3420 Vitamin B12 1000mcg (Cyanocobalamin) 08:46:22 CDT CPT-84553 Abx/Therapy Injection 08:46:22 CDT CPT-J3420 Vitamin B12 1000mcg (Cyanocobalamin) 08:41:26 CDT CPT-86288 Abx/Therapy Injection 08:41:26 CDT CPT-J3420 Vitamin B12 1000mcg (Cyanocobalamin) 08:57:15 CDT CPT-69055 Abx/Therapy Injection 08:57:15 CDT CPT-J3420 Vitamin B12 1000mcg (Cyanocobalamin) 10:59:03 CDT CPT-50355 Abx/Therapy Injection 10:59:03 CDT CPT-J3420 Vitamin B12 1000mcg (Cyanocobalamin) 15:05:39 CDT CPT-69386 Abx/Therapy Injection 15:05:39 CDT CPT-J3420 Vitamin B12 1000mcg (Cyanocobalamin) 13:50:45 CDT CPT-J3420 Vitamin B12 1000mcg (Cyanocobalamin) 08:48:55 CDT CPT-67724 Abx/Therapy Injection 08:48:55 CDT CPT-J3420 Vitamin B12 1000mcg (Cyanocobalamin) 09:14:54 CDT CPT-82141 Abx/Therapy Injection 09:14:54 CDT CPT-J3420 Vitamin B12 1000mcg (Cyanocobalamin) 09:06:06 CDT CPT-76167 Abx/Therapy Injection 09:06:06 CDT CPT-J3420 Vitamin B12 1000mcg (Cyanocobalamin) 09:49:14 CDT CPT-71946 Abx/Therapy Injection 09:49:14 CDT CPT-J3420 Vitamin B12 1000mcg (Cyanocobalamin) 09:10:30 MUSIC THERAPY SPECIALIST CPT-10907 Abx/Therapy Injection 09:10:30 MUSIC THERAPY SPECIALIST CPT-J3420 Vitamin B12 1000mcg (Cyanocobalamin) 09:11:07 MUSIC THERAPY SPECIALIST CPT-94241 Abx/Therapy Injection 09:11:07 MUSIC THERAPY SPECIALIST CPT-J3420 Vitamin B12 1000mcg (Cyanocobalamin) 09:57:03 MUSIC THERAPY SPECIALIST CPT-09806 Abx/Therapy Injection 09:57:03 MUSIC THERAPY SPECIALIST CPT-J3420 Vitamin B12 1000mcg (Cyanocobalamin) 09:23:21 MUSIC THERAPY SPECIALIST CPT-16335 Abx/Therapy Injection 09:23:21 MUSIC THERAPY SPECIALIST CPT-52997 Urine Dip (Floor Use Only) 20:21:44 MUSIC THERAPY SPECIALIST 201 02/12/11 CPT-25975 UA Dip Auto (Floor Use Only) 10:04:39 MUSIC THERAPY SPECIALIST 2 CPT-71830 Urine Dip (Floor Use Only) 13:27:28 MUSIC THERAPY SPECIALIST 201 02/12/01 CPT-54160 Bladder Scan 13:27:28 MUSIC THERAPY SPECIALIST CPT-54836 Abd single AP View 14:30:51 MUSIC THERAPY SPECIALIST CPT-OV Office Visit 10:15:43 CDT CPT-14821 Urine Dip (Floor Use Only) 17:22:21 CDT 201 02/09/02 CPT-56000 Bladder Scan 17:22:21 CDT
--- OUTSIDE RECORDS SUMMARY | 2020-05-05 12:10 | XMS REPORT | Clinical Summary ---
Author Author Jeri Hanley Organization [employer] Address Unknown Phone Unavailable Allergies, Adverse Reactions, Alerts Allergy Name Reaction Description Start Date Severity Status Pr ovider MIRTAZAPINE Bloating, edema, fatigue, muscle pain Moderate Active Tesfaye Sherman MD MIRAPEX caused dizziness and weakness Moderate Active Tesfaye Sherman MD NITROFURANTION Critical Active Tesfaye kidd MD XANAX Critical Active Kayla Shaw on SAVETERI Critical Active Kayla Shaw on NUVIGIIsrael Critical [...] every other day for 2 doses FLUCONAZOLE 97085240052 Active Rj Moss DO Active CEFTIN 250 MG TAB 1 tablet twice daily x 7 days CEFUROXIME AXETIL 18805182830 Active Rj Moss DO Active DIFLUCAN 100 MG TAB 1 tablet by mouth daily X 3 DAYS 2 FLUCONAZOLE 94135631708 No Longer Active Rj Moss DO Active MIRTAZAPINE 15 MG ORAL TABS 1/2 tab by mouth at bedtime. MIRTAZAPINE 45888152371 No Longer Active Tesfaye Sherman MD Acti ve BACTRIM DS 800-160 MG TAB 1 tab by mouth twice daily 2 TRIMETHOPRIM-SULFAMETHOXAZOLE 23550039029 No Longer Active Tesfaye Sherman MD Active PRAMIPEXOLE DIHYDROCHLORIDE 0.125 MG ORAL TABS take 1 tablet po qhs for restless leg syndrome. PRAMIPEXOLE DIHYDROCHLORIDE 40682363183 No Longer Active Tesfaye Sherman MD Active MAGNESIUM 400 MG ORAL TABS 1 tab po daily MAGNESI UM 77166144448 Active Chelsea Barba APRN Active SUDAFED 24 HOUR 240 MG ORAL [id number] 1 tab po daily PSEUDOEPHEDRINE HCL 01592891367 Active Chelsea Barba APRN A ctive CETIRIZINE HCL 5 MG TABS Take 1 tablet by mouth daily CETIRIZINE HCL 58365746248 No Longer Active Chelsea Barba APRN Acti ve TRIMETHOPRIM 100 MG TABS 1/2 qd TRIMETHOPRIM 36018047947 No Longer Active Chelsea Barba APRN Active BACTRIM DS 800-160 MG TAB 1 tab by mouth twice daily 2 TRIMETHOPRIM-SULFAMETHOXAZOLE 32299539620 No Longer Active Tesfaye Sherman MD Active BACTRIM DS 800-160 MG TAB 1 tab by mouth twice daily X 10 DAYS 2 TRIMETHOPRIM-SULFAMETHOXAZOLE 77406327971 No Longer Active Umer Sherman MD Active AMOXICILLIN 500 MG CAPS 1 cap by mouth three times a day AMOXICILLIN 09605106118 No Longer Active Adriana Arredondo Active MECLIZINE HCL 25 MG TAB one tab po qday prn dizziness MECLIZINE HCL 05970783947 Active Tesfaye Sherman MD Active B-12 1000 MCG ORAL LOZG 1 tab po daily CYANOCOBAL STANTON 74506971122 Active Tesfaye Sherman MD Active VITAMIN D3 2000 UNIT TABS 1 daily, for vitamin D deficiency 2014 CHOLECALCIFEROL 19530988615 No Longer Active Tesfaye Sherman MD Active TIZANIDINE HCL 2 MG TABS take 1-2 tablet by mouth ev [place] day at bedtime at 9pm PRN TIZANIDINE HCL 49572129045 Active Tesfaye Owusu Active ZITHROMAX 250 MG TAB 2 po today, then 1 po q days 2-5 AZITHROMYCIN 88769958758 No Longer Active Tesfaye Sherman MD Acti ve BACTRIM DS 800-160 MG TAB 1 tab by mouth twice daily 2 TRIMETHOPRIM-SULFAMETHOXAZOLE 18167293902 No Longer Active Tesfaye Sherman MD Active PRELIEF 340 (65-50) MG (CA-P) ORAL TABS CALCIUM GLYCEROPHOSPHATE 37774213308 Active Tesfaye Sherman MD Active [facility] NIACIN FLUSH FREE 400-100 MG CAPS 1 daily NIACIN-INOSITOL 79291687503 Active Kayla Cooper MD Active DIFLUCAN 150 MG TABS 1 qd FLUCONAZOLE 51543 253171 No Longer Active Kayla Cooper MD Active FLUTICASONE PROPIONATE 50 MCG/ACT SUSP 1 spray each nostril twice daily FLUTICASONE PROPIONATE 04756578025 Active Tesfaye armenta MD Active LOVASTATIN 20 MG TABS Take 1 tablet by mouth daily LOVASTATIN 43456451940 No Longer Active Tesfaye Sherman MD Active MELOXICAM 7.5 MG TABS 1 tablet by mouth daily M ELOXICAM 50116446863 No Longer Active Tesfaye Sherman MD Active GABAPENTIN 300 MG CAPS Take two tablets by mouth every evening GABAPENTIN 92630611232 No Longer Active Edith Burch MD Active OXYCODONE-ACETAMINOPHEN 5-325 MG TABS Take one tablet by mouth every 6 hours as needed. Max 12 tabs/day as needed OXYCODONE-ACETAMINOP HEN 47371842432 Active Tesfaye Sherman MD Active CYMBALTA 60 MG CPEP Take 1 tablet by mouth daily D ULOXETINE HCL 92369387244 Active Kayla Cooper MD Active CLONAZEPAM 0.5 MG TABS Take one tablet in the morning and 1.5 table t at 7pm CLONAZEPAM 87514414676 Active Kayla Cooper MD Active BACLOFEN 10 MG TABS Take one tablet by mouth three times a day BACLOFEN 31506590311 Active Kayla Cooper MD Active GABAPENTIN 300 MG CAPS Take two tablets by mouth every evening GABAPENTIN 300 MG CAPS 471404 GABAPENTIN Inactive MELOXICAM 7.5 MG TABS 1 tablet by mouth daily MELOXICAM 7.5 MG TABS 091008 MELOXICAM Inactive LOVASTATIN 20 MG TABS Take 1 tablet by mouth daily 201 02/12/20 LOVASTATIN 20 MG TABS 036810 LOVASTATIN Inactive DIFLUCAN 150 MG TABS 1 qd DIFLUCAN 150 MG T ABS 970704 FLUCONAZOLE Inactive VITAMIN D3 2000 UNIT TABS 1 daily, for vitamin D deficiency 2014 VITAMIN D3 2000 UNIT TABS CHOLECALCIFEROL Inacti ve AMOXICILLIN 500 MG CAPS 1 cap by mouth three times a day AMOXICILLIN 500 MG CAPS 526674 AMOXICILLIN Inactive BACTRIM DS 800-160 MG TAB 1 tab by mouth twice daily X 10 DAYS 2 BACTRIM DS 800-160 MG TAB 19830105 TRIMETHOPRIM-SULFAMETH OXAZOLE Inactive TRIMETHOPRIM 100 MG TABS 1/2 qd TRIMETHOPRI M 100 MG TABS 892783 TRIMETHOPRIM Inactive CETIRIZINE HCL 5 MG TABS Take 1 tablet by mouth daily CETIRIZINE HCL 5 MG TABS 0251626 CETIRIZINE HCL Inactive PRAMIPEXOLE DIHYDROCHLORIDE 0.125 MG ORAL TABS take 1 tablet po qhs for restless leg syndrome. PRAMIPEXOLE DIHYDROC HLORIDE 0.125 MG ORAL TABS 475871 PRAMIPEXOLE DIHYDROCHLORIDE Inactive MIRTAZAPINE 15 MG ORAL TABS 1/2 tab by mouth at bedtime. MIRTAZAPINE 15 MG ORAL TABS 695927 MIRTAZAPINE Inactive DIFLUCAN 100 MG TAB 1 tablet by mouth daily X 3 DAYS 2 DIFLUCAN 100 MG TAB 050504 FLUCONAZOLE Inactive BACTRIM DS 800-160 MG TAB 1 tab by mouth twice daily 2 BACTRIM DS 800-160 MG TAB 697133 TRIMETHOPRIM-SULFAMETHOXAZOLE Inac tive ZITHROMAX 250 MG TAB 2 po today, then 1 po q days 2-5 ZITHROMAX 250 MG TAB 8327419 AZITHROMYCIN Inactive BACTRIM DS 800-160 MG TAB [...] - 3141-9 114.5 [lb_av] Weigh t Measured Diagnostic Results Date [...] mg/dL Encounters Code Encounter Date Provider Facility CPT-18281 Level 3 Est. Patient 10:46:32 CDT Rj cotto DO [facility] CPT-49774 Level 4 Est. Patient 20:19:25 CDT Tesfaye pearson MD [facility] CPT-01493 Level 3 Est. Patient 09:07:31 CDT Tesfaye pearson MD [facility] CPT-41552 Level 4 Est. Patient 13:12:56 CDT Tesfaye pearson MD [facility] CPT-90577 Level 4 Est. Patient 21:24:55 MANUFACTURING APPLICATIONS ENGINEER Tesfaye pearsno MD [facility] CPT-96941 Level 3 Est. Patient 13:45:04 MANUFACTURING APPLICATIONS ENGINEER Tesfaye pearson MD [facility] CPT-76572 Level 4 Est. Patient 13:50:45 CDT Tesfaye pearson MD [facility] CPT-58941 Level 3 Est. Patient 10:16:10 CDT Tesfaye pearson MD [facility] CPT-35817 Level 3 Est. Patient 16:36:07 MANUFACTURING APPLICATIONS ENGINEER Kayla jameson MD [facility] CPT-70790 Level 4 Est. Patient 16:00:14 MANUFACTURING APPLICATIONS ENGINEER Tesfaye pearson MD [facility] CPT-42029 Level 4 Est. Patient 11:02:24 MANUFACTURING APPLICATIONS ENGINEER Tesfaye pearson MD [facility] CPT-18316 Level 3 Est. Patient 20:21:43 MANUFACTURING APPLICATIONS ENGINEER Kayla jameson MD [facility] CPT-10710 Level 3 Est. Patient 13:27:28 MANUFACTURING APPLICATIONS ENGINEER Kayla jameson MD [facility] CPT-51884 Level 4 Est. Patient 15:57:17 MANUFACTURING APPLICATIONS ENGINEER Tesfaye pearson MD [facility] CPT-96895 Level 3 New Patient 13:25:47 CDT Tesfaye kidd MD [facility] CPT-92643 Level 3 New Patient 17:22:21 CDT Kayla angel MD [facility] Procedures Code Procedure Name Date Entry Date Standard Desc ription CPT-G0438 Initial Annual Wellness Exam 11:23:17 CD T CPT-J2930 Solu Medrol 125 mg (Methyl Prednisolone Sodium Succinate) 17:29:12 MANUFACTURING APPLICATIONS ENGINEER CPT-26638 Abx/Therapy Injection 17:29:11 MANUFACTURING APPLICATIONS ENGINEER CPT-J2930 Solu Medrol 125 mg (Methyl Prednisolone Sodium Succinate) 12:34:38 MANUFACTURING APPLICATIONS ENGINEER CPT-J3420 Vitamin B12 1000mcg (Cyanocobalamin) 09:12:55 CDT CPT-J3420 Vitamin B12 1000mcg (Cyanocobalamin) 16:28:06 MANUFACTURING APPLICATIONS ENGINEER CPT-02651 Venipuncture Draw Fee 08:39:53 CDT CPT-J3420 Vitamin B12 1000mcg (Cyanocobalamin) 08:46:22 CDT CPT-39402 Abx/Therapy Injection 08:46:22 CDT CPT-J3420 Vitamin B12 1000mcg (Cyanocobalamin) 08:41:26 CDT CPT-35969 Abx/Therapy Injection 08:41:26 CDT CPT-J3420 Vitamin B12 1000mcg (Cyanocobalamin) 08:57:15 CDT CPT-87397 Abx/Therapy Injection 08:57:15 CDT CPT-J3420 Vitamin B12 1000mcg (Cyanocobalamin) 10:59:03 CDT CPT-23019 Abx/Therapy Injection 10:59:03 CDT CPT-J3420 Vitamin B12 1000mcg (Cyanocobalamin) 15:05:39 CDT CPT-28151 Abx/Therapy Injection 15:05:39 CDT CPT-J3420 Vitamin B12 1000mcg (Cyanocobalamin) 13:50:45 CDT CPT-J3420 Vitamin B12 1000mcg (Cyanocobalamin) 08:48:55 CDT CPT-27040 Abx/Therapy Injection 08:48:55 CDT CPT-J3420 Vitamin B12 1000mcg (Cyanocobalamin) 09:14:54 CDT CPT-92007 Abx/Therapy Injection 09:14:54 CDT CPT-J3420 Vitamin B12 1000mcg (Cyanocobalamin) 09:06:06 CDT CPT-42143 Abx/Therapy Injection 09:06:06 CDT CPT-J3420 Vitamin B12 1000mcg (Cyanocobalamin) 09:49:14 CDT CPT-81409 Abx/Therapy Injection 09:49:14 CDT CPT-J3420 Vitamin B12 1000mcg (Cyanocobalamin) 09:10:30 MANUFACTURING APPLICATIONS ENGINEER CPT-60898 Abx/Therapy Injection 09:10:30 MANUFACTURING APPLICATIONS ENGINEER CPT-J3420 Vitamin B12 1000mcg (Cyanocobalamin) 09:11:07 MANUFACTURING APPLICATIONS ENGINEER CPT-76149 Abx/Therapy Injection 09:11:07 MANUFACTURING APPLICATIONS ENGINEER CPT-J3420 Vitamin B12 1000mcg (Cyanocobalamin) 09:57:03 MANUFACTURING APPLICATIONS ENGINEER CPT-01543 Abx/Therapy Injection 09:57:03 MANUFACTURING APPLICATIONS ENGINEER CPT-J3420 Vitamin B12 1000mcg (Cyanocobalamin) 09:23:21 MANUFACTURING APPLICATIONS ENGINEER CPT-81819 Abx/Therapy Injection 09:23:21 MANUFACTURING APPLICATIONS ENGINEER CPT-11222 Urine Dip (Floor Use Only) 20:21:44 MANUFACTURING APPLICATIONS ENGINEER 201 02/12/11 CPT-95494 UA Dip Auto (Floor Use Only) 10:04:39 MANUFACTURING APPLICATIONS ENGINEER 2 CPT-07425 Urine Dip (Floor Use Only) 13:27:28 MANUFACTURING APPLICATIONS ENGINEER 201 02/12/01 CPT-46267 Bladder Scan 13:27:28 MANUFACTURING APPLICATIONS ENGINEER CPT-64320 Abd single AP View 14:30:51 MANUFACTURING APPLICATIONS ENGINEER CPT-OV Office Visit 10:15:43 CDT CPT-46501 Urine Dip (Floor Use Only) 17:22:21 CDT 201 02/09/02 CPT-89682 Bladder Scan 17:22:21 CDT
--- OUTSIDE RECORDS SUMMARY | 2020-05-05 12:10 | XMS REPORT | Clinical Summary ---
Author Author Talon, Jeri Wood Organization [employer] Address Unknown Phone Unavailable Allergies, Adverse Reactions, [...] Generic Name NDC Status Provider Patient Instruction PREDNISONE 20 MG ORAL TABLET 1 tab twice daily for 3 d ay, then one daily for three days PREDNISONE 46308854162 Active Laurence Raida Active PROAIR HFA 108 (90 BASE) MCG/ACT INHALATION AEROSOL SO LUTION 1 puff every 6 hours as needed ALBUTEROL SULFATE 82349893108 Active [place] nda Raida Active MECLIZINE HCL 25 MG ORAL TABLET one 4 times a day as needed for dizziness MECLIZINE HCL 71314912550 Active Laurence Raida Active DIFLUCAN 100 MG ORAL TABLET 1 tablet by mouth daily FLUCONAZOLE 70542868854 Active Laurence Raida Active AMOXICILLIN 500 MG ORAL CAPSULE 1 cap by mouth three times a day AMOXICILLIN 29509740679 No Longer Active Laurence Raida Acti ve VENLAFAXINE HCL 75 MG ORAL TABLET 1 am 1/2 at noon VENLAFAXINE HCL 89667553553 Active Tesfaye Sherman MD Active DIFLUCAN 100 MG ORAL TABLET 1 tablet by mouth daily 20 19/08/26 FLUCONAZOLE 53746663050 No Longer Active Tesfaye Sherman MD Acti ve BACTRIM DS 800-160 MG ORAL TABLET 1 tab by mouth twice daily 201 05/10/28 TRIMETHOPRIM-SULFAMETHOXAZOLE 53600367690 No Longer Active A mirna Angelica Active FOSAMAX 70 MG ORAL TABLET 1 po qweek. Take 30min prio r to first food/drink. Avoid lying down x 1 hour. ALENDRONATE SODIUM 23062341 144 No Longer Active Laurence Lopezduyen Active REPHRESH PRO-B ORAL CAPSULE 1 tablet daily LACT OBACILLUS 68159443758 Active Edith Burch MD Active CYMBALTA 60 MG ORAL CAPSULE DELAYED RELEASE PARTICLES Take 1 tablet by mouth daily DULOXETINE HCL 10828271989 No Longer Active Edith Burch MD Active CYMBALTA 30 MG ORAL CAPSULE DELAYED RELEASE PARTICLES 1 cap by mouth daily with 60mg DULOXETINE HCL 14470774090 No Longer Active Jordan Burch MD Active FISH OIL 1000 MG ORAL CAPSULE DELAYED RELEASE 1 pill b y mouth daily for cholesterol OMEGA-3 FATTY ACIDS 90080921436 Active Cee Jaffe LPN Active RED YEAST RICE 600 MG ORAL CAPSULE 1 pill by mouth daily RED YEAST RICE EXTRACT 29555102246 Active Rosa Jaffe LPN Activ e DIFLUCAN 100 MG ORAL TABLET 1 tablet by mouth daily 20 19/03/05 FLUCONAZOLE 70040957951 No Longer Active Tesfaye Mcdonaldi ve BACTRIM DS 800-160 MG ORAL TABLET 1 tab by mouth twice daily 201 05/06/28 TRIMETHOPRIM-SULFAMETHOXAZOLE 78290572580 No Longer Active Umer Sherman MD Active BACTRIM DS 800-160 MG ORAL TABLET 1 tab by mouth twice daily 201 05/04/15 TRIMETHOPRIM-SULFAMETHOXAZOLE 88768611949 No Longer Active Umer Sherman MD Active DIFLUCAN 150 MG ORAL TABLET 1 tablet by mouth daily 20 18/09/20 FLUCONAZOLE 87709090430 No Longer Active Tesfaye Sherman MD Acti ve BACTRIM DS 800-160 MG ORAL TABLET 1 tab by mouth twice daily 201 04/13/17 TRIMETHOPRIM-SULFAMETHOXAZOLE 28717160394 No Longer Active Umer Sherman MD Active ROPINIROLE HCL 0.25 MG ORAL TABLET 1 TAB PO Q HS ROPINIROLE HCL 75187675302 Active Tesfaye Sherman MD Active CEFTIN 250 MG ORAL TABLET 1 tablet twice daily x 7 days CEFUROXIME AXETIL 69418801747 No Longer Active Tesfaye Sherman MD Active DIFLUCAN 100 MG ORAL TABLET 1 tablet by mouth every other da y for 2 doses FLUCONAZOLE 79407985241 No Longer Active Tesfaye barron MD Active DIFLUCAN 100 MG ORAL TABLET 1 tablet by mouth daily X 3 DAYS 201 04/09/01 FLUCONAZOLE 85639266237 No Longer Active Rj Moss DO Ac tive MIRTAZAPINE 15 MG ORAL TABLET 1/2 tab by mouth at bedtime. 03/13 MIRTAZAPINE 71567291123 No Longer Active Tesfaye Sherman MD Active BACTRIM DS 800-160 MG ORAL TABLET 1 tab by mouth twice daily 201 04/09/01 TRIMETHOPRIM-SULFAMETHOXAZOLE 46122665138 No Longer Active Umer Sherman MD Active PRAMIPEXOLE DIHYDROCHLORIDE 0.125 MG ORAL TABLET take 1 tablet po qhs for restless leg syndrome. PRAMIPEXOLE DIHYDROCHLORI DE 44406331083 No Longer Active Tesfaye Sherman MD Active MAGNESIUM 400 MG ORAL TABLET 1 tab po daily MAGNE SIUM 54724077874 Active Chelsea Barba APRN Active SUDAFED 24 HOUR 240 MG ORAL TABLET EXTENDED RELEASE 24 HOUR 1 tab po daily PSEUDOEPHEDRINE HCL 99735404175 Active Chelsea NAPOLES RN Active CETIRIZINE HCL 5 MG ORAL TABLET Take 1 tablet by mouth daily CETIRIZINE HCL 64836208774 No Longer Active Chelsea Barba APRN Ac tive TRIMETHOPRIM 100 MG ORAL TABLET 1/2 qd TRIM ETHOPRIM 30700229370 No Longer Active Chelsea Jameson [employer]ING [employer]ER Active BACTRIM DS 800-160 MG ORAL TABLET 1 tab by mouth twice daily 201 04/04/11 TRIMETHOPRIM-SULFAMETHOXAZOLE 76875452233 No Longer Active Umer Sherman MD Active BACTRIM DS 800-160 MG ORAL TABLET 1 tab by mouth twice daily X 10 DAYS TRIMETHOPRIM-SULFAMETHOXAZOLE 07722623368 No Longer Active Tesfaye Sherman MD Active AMOXICILLIN 500 MG ORAL CAPSULE 1 cap by mouth three times a day AMOXICILLIN 11804623444 No Longer Active Adriana Arredondo Active MECLIZINE HCL 25 MG ORAL TABLET one tab po qday prn dizziness 09/08 MECLIZINE HCL 85754809177 Active Tesfaye Sherman MD Active B-12 1000 MCG ORAL LOZENGE 1 tab po daily CYANO COBALAMIN 60886053440 Active Tesfaye Sherman MD Active VITAMIN D3 2000 UNIT ORAL TABLET 1 daily, for vitamin D deficien cy CHOLECALCIFEROL 41811416212 No Longer Active Tesfaye Sherman MD Active TIZANIDINE HCL 2 MG ORAL TABLET take 1-2 tablet by [facility] every day at bedtime at 9pm PRN TIZANIDINE HCL 07939998457 Active Tesfaye hewitt MD Active ZITHROMAX 250 MG ORAL TABLET 2 po today, then 1 po q days 2-5 20 15/02/10 AZITHROMYCIN 92252897866 No Longer Active Tesfaye Sherman MD Active BACTRIM DS 800-160 MG ORAL TABLET 1 tab by mouth twice daily 201 03/03/23 TRIMETHOPRIM-SULFAMETHOXAZOLE 44508652643 No Longer Active Umer Sherman MD Active PRELIEF 340 (65-50) MG (CA-P) ORAL TABLET CALCIUM GLYCEROPHOSPHATE 98705848022 Active Tesfaye Sherman MD Acti ve [facility] NIACIN FLUSH FREE 400-100 MG ORAL CAPSULE 1 daily NIACIN-INOSITOL 95173440833 Active Kayla Cooper MD Activ e DIFLUCAN 150 MG ORAL TABLET 1 qd FLUCONAZOL E 29608367359 No Longer Active Kayla Cooper MD Active FLUTICASONE PROPIONATE 50 MCG/ACT NASAL SUSPENSION 1 spray each nostril twice daily FLUTICASONE PROPIONATE 22211066702 Active D patricia Sherman MD Active LOVASTATIN 20 MG ORAL TABLET Take 1 tablet by mouth daily LOVASTATIN 15486879113 No Longer Active Tesfaye Sherman MD Acti ve MELOXICAM 7.5 MG ORAL TABLET 1 tablet by mouth daily 2 MELOXICAM 39078098470 No Longer Active Tesfaye Sherman MD Acti ve GABAPENTIN 300 MG ORAL CAPSULE Take two tablets by mouth every e vening GABAPENTIN 10274286113 No Longer Active Edith Burch MD A ctive OXYCODONE-ACETAMINOPHEN 5-325 MG ORAL TABLET Take one tablet by mouth every 6 hours as needed. Max 12 tabs/day as needed OXYCO DONE-ACETAMINOPHEN 43523571170 Active Tesfaye Sherman MD Active CLONAZEPAM 0.5 MG ORAL TABLET Take one tablet in the m orning and 1.5 tablet at 7pm CLONAZEPAM 59598748963 Active Kayla Cooper MD Active BACLOFEN 10 MG ORAL TABLET Take one tablet by mouth three times a d ay BACLOFEN 13888077699 Active Kayla Cooper MD Active GABAPENTIN 300 MG ORAL CAPSULE Take two tablets by mouth every e vening GABAPENTIN 300 MG ORAL CAPSULE 319096 GABAPENTIN I nactive MELOXICAM 7.5 MG ORAL TABLET 1 tablet by mouth daily 2 MELOXICAM 7.5 MG ORAL TABLET 361479 MELOXICAM Inactive LOVASTATIN 20 MG ORAL TABLET Take 1 tablet by mouth daily LOVASTATIN 20 MG ORAL TABLET 880354 LOVASTATIN Inactive DIFLUCAN 150 MG ORAL TABLET 1 qd DIFLUCAN 150 MG ORAL TABLET 577799 FLUCONAZOLE Inactive VITAMIN D3 2000 UNIT ORAL TABLET 1 daily, for vitamin D deficien cy VITAMIN D3 2000 UNIT ORAL TABLET CHOLECALCIFEROL Inactive AMOXICILLIN 500 MG ORAL CAPSULE 1 cap by mouth three times a day AMOXICILLIN 500 MG ORAL CAPSULE 988519 AMOXICILLIN Inactive BACTRIM DS 800-160 MG ORAL TABLET 1 tab by mouth twice daily X 10 DAYS BACTRIM DS 800-160 MG ORAL TABLET 856302 TRIMETHOPRIM-SULFAMETHOXAZOLE Inactive TRIMETHOPRIM 100 MG ORAL TABLET 1/2 qd 7 TRIMETHOPRIM 100 MG ORAL TABLET 338273 TRIMETHOPRIM Inactive CETIRIZINE HCL 5 MG ORAL TABLET Take 1 tablet by mouth daily CETIRIZINE HCL 5 MG ORAL TABLET 3998615 CETIRIZINE HCL Inactive PRAMIPEXOLE DIHYDROCHLORIDE 0.125 MG ORAL TABLET take 1 tablet po qhs for restless leg syndrome. PRAMIPEXOLE DIHYD ROCHLORIDE 0.125 MG ORAL TABLET 443024 PRAMIPEXOLE DIHYDROCHLORIDE Inactive MIRTAZAPINE 15 MG ORAL TABLET 1/2 tab by mouth at bedtime. 03/13 MIRTAZAPINE 15 MG ORAL TABLET 484211 MIRTAZAPINE In active DIFLUCAN 100 MG ORAL TABLET 1 tablet by mouth daily X 3 DAYS 201 04/09/01 DIFLUCAN 100 MG ORAL TABLET 817647 FLUCONAZOLE Inac tive DIFLUCAN 100 MG ORAL TABLET 1 tablet by mouth every other da y for 2 doses DIFLUCAN 100 MG ORAL TABLET 115913 FLUCONAZOLE Inactive CEFTIN 250 MG ORAL TABLET 1 tablet twice daily x 7 days CEFTIN 250 MG ORAL TABLET 503720 CEFUROXIME AXETIL Inactive CYMBALTA 30 MG ORAL CAPSULE DELAYED RELEASE PARTICLES 1 cap by mouth daily with 60mg CYMBALTA 30 MG ORAL CAPSULE DELAYED RELEASE PARTICLES 990680 DULOXETINE HCL Inactive CYMBALTA 60 MG ORAL CAPSULE DELAYED RELEASE PARTICLES Take 1 tablet by mouth daily CYMBALTA 60 MG ORAL CAPSULE DELAYED RELEA SE PARTICLES 142291 DULOXETINE HCL Inactive FOSAMAX 70 MG ORAL TABLET 1 po qweek. Take 30min prio r to first food/drink. Avoid lying down x 1 hour. FOSAMAX 70 MG ORAL TA BLET 224878 ALENDRONATE SODIUM Inactive DIFLUCAN 100 MG ORAL [...] 20 15/02/10 ZITHROMAX 250 MG ORAL TABLET 218914 AZITHROMYCIN [place] ctive BACTRIM DS 800-160 MG ORAL TABLET [...] a day AMOXICILLIN 500 MG ORAL CAPSULE 959101 AMOXICILLIN Inactive Advance Directives Directive Description Start Date PERMISSION TO SHARE DISCUSSED WITH PATIENT -- NO DECISION MADE DURABLE POWER OF SUPERVISOR YARD FOR HEALTHCARE Vital Signs Date Name Value [...] ... - Chemistry sodium, serum 144 mmol/L 467-802 6892/06/14 carbon dioxide, venous blood 29.4 mmol/L 21.0-32 .0 potassium, serum 4.4 mmol/L 3.5-5.2 chloride, serum 108 mmol/L 98-107 blood glucose 100 mg/dL 65-110 urea nitrogen, blood 9 mg/dL 7-18 creatinine, serum 0.67 mg/dL 0.55-1.30 alanine aminotransferase (SGPT), serum 24 U/L 12-78 aspartate aminotransferase (SGOT), serum 15 U/L 15-37 calcium, serum 9.3 mg/dL 8.5-10.1 bilirubin, serum, total 0.50 mg/dL 0.00-1.00 cholesterol, serum 268 mg/dL 371-738 3059/06/14 triglyceride, serum, fasting 126 mg/dL 30-200 HDL [...] mg/dL Encounters Code Encounter Date Provider Facility CPT-62713 Level 4 Est. Patient 17:07:34 [employer] [facility] CPT-60591 Level 4 Est. Patient 13:56:54 CDT Tesf[facility] CPT-62287 Level 4 Est. Patient 13:24:25 CDT [facility] CPT-55661 Level 4 Est. Patient 09:14:56 CDT Tesfaye pearson [facility] CPT-51000 Level 4 Est. Patient 18:40:25 [employer] Tesfaye pearson [facility] CPT-91028 Level 4 Est. Patient 18:13:07 [employer] Tesfaye pearson [facility] CPT-28185 Level 3 Est. Patient 10:46:32 CDT Rj cotto DO [facility]-38904 Level 4 Est. Patient 20:19:25 CDT Tesfaye pearson MD [facility]-90843 Level 3 Est. Patient 09:07:31 CDT Tesfaye pearson MD [facility]-08475 Level 4 Est. Patient 13:12:56 CDT Tesfaye pearson MD [facility]-54711 Level 4 Est. Patient 21:24:55 [employer] Tesfaye pearson MD [facility]-59668 Level 3 Est. Patient 13:45:04 [employer] Tesfaye pearson MD [facility] CPT-22605 Level 4 Est. Patient 13:50:45 CDT Tesfaye pearson MD [facility] CPT-20906 Level 3 Est. Patient 10:16:10 CDT Tesfaye pearson MD [facility] CPT-66642 Level 3 Est. Patient 16:36:07 [employer] Kayla jameson MD [facility]-12442 Level 4 Est. Patient 16:00:14 [employer] Tesfaye pearson MD [facility]-60611 Level 4 Est. Patient 11:02:24 [employer] Tesfaye pearson MD [facility]-99394 Level 3 Est. Patient 20:21:43 [employer] Kayla jameson MD [facility]-71202 Level 3 Est. Patient 13:27:28 [employer] Kayla jameson MD [facility]-29160 Level 4 Est. Patient 15:57:17 [employer] Tesfaye pearson MD [facility] CPT-69539 Level 3 New Patient 13:25:47 CDT Tesfaye kidd MD [facility] CPT-28481 Level 3 New Patient 17:22:21 CDT Kayla angel MD [facility] Procedures Code Procedure Name Date Entry Date Standard Desc ription CPT-06472 Bone Density - XRAY USE ONLY 11:43:58 CDT CPT-84022 Bone Density - XRAY USE ONLY 10:05:16 CDT 2 CPT-12019 Prv Med New Pt 40-64 yrs 18:19:25 CDT 2016 CPT-36409 Foot, right, comp min 3V - XRAY USE ONLY 10:38:34 CDT CPT-G0439 Subsequent Annual Wellness Exam 13:55:04 CDT CPT-G0438 Initial Annual Wellness Exam 11:23:17 CD T CPT-J2930 Solu Medrol 125 mg (Methyl Prednisolone Sodium Succinate) 17:29:12 [employer] CPT-68691 Abx/Therapy Injection 17:29:11 [employer] CPT-J2930 Solu Medrol 125 mg (Methyl Prednisolone Sodium Succinate) 12:34:38 [employer] CPT-J3420 Vitamin B12 1000mcg (Cyanocobalamin) 09:12:55 CDT CPT-J3420 Vitamin B12 1000mcg (Cyanocobalamin) 16:28:06 [employer] CPT-01275 Venipuncture Draw Fee 08:39:53 CDT CPT-J3420 Vitamin B12 1000mcg (Cyanocobalamin) 08:46:22 CDT CPT-28801 Abx/Therapy Injection 08:46:22 CDT CPT-J3420 Vitamin B12 1000mcg (Cyanocobalamin) 08:41:26 CDT CPT-73089 Abx/Therapy Injection 08:41:26 CDT CPT-J3420 Vitamin B12 1000mcg (Cyanocobalamin) 08:57:15 CDT CPT-48980 Abx/Therapy Injection 08:57:15 CDT CPT-J3420 Vitamin B12 1000mcg (Cyanocobalamin) 10:59:03 CDT CPT-42797 Abx/Therapy Injection 10:59:03 CDT CPT-J3420 Vitamin B12 1000mcg (Cyanocobalamin) 15:05:39 CDT CPT-71215 Abx/Therapy Injection 15:05:39 CDT CPT-J3420 Vitamin B12 1000mcg (Cyanocobalamin) 13:50:45 CDT CPT-J3420 Vitamin B12 1000mcg (Cyanocobalamin) 08:48:55 CDT CPT-41874 Abx/Therapy Injection 08:48:55 CDT CPT-J3420 Vitamin B12 1000mcg (Cyanocobalamin) 09:14:54 CDT CPT-34188 Abx/Therapy Injection 09:14:54 CDT CPT-J3420 Vitamin B12 1000mcg (Cyanocobalamin) 09:06:06 CDT CPT-90000 Abx/Therapy Injection 09:06:06 CDT CPT-J3420 Vitamin B12 1000mcg (Cyanocobalamin) 09:49:14 CDT CPT-39063 Abx/Therapy Injection 09:49:14 CDT CPT-J3420 Vitamin B12 1000mcg (Cyanocobalamin) 09:10:30 [employer] CPT-22753 Abx/Therapy Injection 09:10:30 [employer] CPT-J3420 Vitamin B12 1000mcg (Cyanocobalamin) 09:11:07 [employer] CPT-43024 Abx/Therapy Injection 09:11:07 [employer] CPT-J3420 Vitamin B12 1000mcg (Cyanocobalamin) 09:57:03 [employer] CPT-38758 Abx/Therapy Injection 09:57:03 [employer] CPT-J3420 Vitamin B12 1000mcg (Cyanocobalamin) 09:23:21 [employer] CPT-75263 Abx/Therapy Injection 09:23:21 [employer] CPT-11816 Urine Dip (Floor Use Only) 20:21:44 [employer] 201 02/12/11 CPT-40645 UA Dip Auto (Floor Use Only) 10:04:39 [employer] 2 CPT-34273 Urine Dip (Floor Use Only) 13:27:28 [employer] 201 02/12/01 CPT-22544 Bladder Scan 13:27:28 [employer] CPT-54394 Abd single AP View 14:30:51 [employer] CPT-OV Office Visit 10:15:43 CDT CPT-12617 Urine Dip (Floor Use Only) 17:22:21 CDT 201 02/09/02 CPT-60137 Bladder Scan 17:22:21 CDT
--- OUTSIDE RECORDS SUMMARY | 2020-05-05 12:10 | XMS REPORT | Clinical Summary ---
Author Author Talon, Jeri Wood Organization [facility] Address Unknown Phone Unavailable Allergies, Adverse Reactions, Alerts Allergy Name Reaction Description Start Date Severity Status Pr ovider NITROFURANTION Critical Active Tesfaye kidd MD XANAX Critical Active Kayla Shaw on SAVELLFer Critical Active Kayla Shaw on NUVIGIIsrael Critical Active Kayla Shaw on NAPROXLINNEA MEDLEY Critical Active Kalya Edward son BENADRYL Critical Active Kayla Shaw [...] cystitis Preventive health care V70.0 Active Tesfaye barorn MD Routine general medical examination at a [...] tab by mouth twice daily 2 TRIMETHOPRIM-SULFAMETHOXAZOLE 88385078435 Active Tesfaye Sherman MD Active BACTRIM DS 800-160 MG TAB 1 tab by mouth twice daily X 10 DAYS 2 TRIMETHOPRIM-SULFAMETHOXAZOLE 84740454453 No Longer Active Umer Sherman MD Active AMOXICILLIN 500 MG CAPS 1 cap by mouth three times a day AMOXICILLIN 37112114776 No Longer Active Adriana Arredondo Active MECLIZINE HCL 25 MG TAB one tab po qday prn dizziness MECLIZINE HCL 42326213671 Active Tesfaye Sherman MD Active B-12 1000 MCG ORAL LOZG 1 tab po daily CYANOCOBAL STANTON 64144324049 Active Tesfaye Sherman MD Active VITAMIN D3 2000 UNIT TABS 1 daily, for vitamin D deficiency 2014 CHOLECALCIFEROL 63005038231 No Longer Active Tesfaye Sherman MD Active TIZANIDINE HCL 2 MG TABS take 1-2 tablet by mouth ev day at bedtime at 9pm PRN TIZANIDINE HCL 58843484061 Active Tesfaye Owusu Active ZITHROMAX 250 MG TAB 2 po today, then 1 po q days 2-5 AZITHROMYCIN 04672669301 No Longer Active Tesfaye Sherman MD Acti ve BACTRIM DS 800-160 MG TAB 1 tab by mouth twice daily 2 TRIMETHOPRIM-SULFAMETHOXAZOLE 83859272988 No Longer Active Tesfaye Sherman MD Active PRELIEF 340 (65-50) MG (CA-P) ORAL TABS CALCIUM GLYCEROPHOSPHATE 64646538002 Active Tesfaye Sherman MD Active [facility] NIACIN FLUSH FREE 400-100 MG CAPS 1 daily NIACIN-INOSITOL 50576090174 Active Kayla Cooper MD Active DIFLUCAN 150 MG TABS 1 qd FLUCONAZOLE 05613 864014 No Longer Active Kayla Cooper MD Active FLUTICASONE PROPIONATE 50 MCG/ACT SUSP 1 spray each nostril twice daily FLUTICASONE PROPIONATE 92724830711 Active Tesfaye armenta MD Active LOVASTATIN 20 MG TABS Take 1 tablet by mouth daily LOVASTATIN 04678849306 No Longer Active Tesfaye Sherman MD Active MELOXICAM 7.5 MG TABS 1 tablet by mouth daily M ELOXICAM 02104444690 No Longer Active Tesfaye Sherman MD Active GABAPENTIN 300 MG CAPS Take two tablets by mouth every evening GABAPENTIN 85229079216 No Longer Active Edith Burch MD Active TRIMETHOPRIM 100 MG TABS 1/2 qd TRIMETHOPRIM 0979008 3001 Active Kayla Cooper MD Active OXYCODONE-ACETAMINOPHEN 5-325 MG TABS Take one tablet by mouth every 6 hours as needed. Max 12 tabs/day as needed OXYCODONE-ACETAMINOP HEN 55185904962 Active Tesfaye Sherman MD Active CYMBALTA 60 MG CPEP Take 1 tablet by mouth daily D ULOXETINE HCL 16414403709 Active Kayla Cooper MD Active CLONAZEPAM 0.5 MG TABS Take one tablet in the morning and 1.5 table t at 7pm CLONAZEPAM 49632850609 Active Kayla Cooper MD Active CETIRIZINE HCL 5 MG TABS Take 1 tablet by mouth daily CETIRIZINE HCL 04535477999 Active Kayla Cooper MD Active BACLOFEN 10 MG TABS Take one tablet by mouth three times a day BACLOFEN 81130332084 Active Kayla Cooper MD Active GABAPENTIN 300 MG CAPS Take two tablets by mouth every evening GABAPENTIN 300 MG CAPS 525352 GABAPENTIN Inactive MELOXICAM 7.5 MG TABS 1 tablet by mouth daily MELOXICAM 7.5 MG TABS 719637 MELOXICAM Inactive LOVASTATIN 20 MG TABS Take 1 tablet by mouth daily 201 02/12/20 LOVASTATIN 20 MG TABS 881973 LOVASTATIN Inactive DIFLUCAN 150 MG TABS 1 qd DIFLUCAN 150 MG T ABS 918791 FLUCONAZOLE Inactive VITAMIN D3 2000 UNIT TABS 1 daily, for vitamin D deficiency 2014 VITAMIN D3 2000 UNIT TABS CHOLECALCIFEROL Inacti ve AMOXICILLIN 500 MG CAPS 1 cap by mouth three times a day AMOXICILLIN 500 MG CAPS 046892 AMOXICILLIN Inactive BACTRIM DS 800-160 MG TAB 1 tab by mouth twice daily X 10 DAYS 2 BACTRIM DS 800-160 MG TAB 384867 TRIMETHOPRIM-SULFAMETH OXAZOLE Inactive BACTRIM DS 800-160 MG TAB 1 tab by mouth twice daily 2 BACTRIM DS 800-160 MG TAB 769244 TRIMETHOPRIM-SULFAMETHOXAZOLE Inac tive ZITHROMAX 250 MG TAB 2 po today, then 1 po q days 2-5 ZITHROMAX 250 MG TAB 3171102 AZITHROMYCIN Inactive Advance Directives Directive Description Start [...] AUTO - Urinal ysis pH, urine, semiquantitative 7.5 5.0-8.5 specific gravity, urine <=1.005 1.000-1.030 appearance, urine Clear Clear urine color Yellow Colorless;Lightyellow;St raw;Yellow urobilinogen, urine, semiquantitative (dipstick) 0.2 Normal leukocyte esterase, urine, by dipstick Negative Negative nitrite, urine, semiquantitative Negative Neg ative glucose, urine, semiquantitative Negative Neg ative ketones, urine, by test strip Negative Negati ve bilirubin, urine Negative Negative Encounters Code Encounter Date Provider Facility CPT-14491 Level 4 Est. Patient 21:24:55 [employer] Tesfaye pearson MD [facility]-03740 Level 3 Est. Patient 13:45:04 [employer] Tesfaye pearson MD [facility] CPT-07668 Level 4 Est. Patient 13:50:45 CDT Tesfaye pearson MD [facility] CPT-66604 Level 3 Est. Patient 10:16:10 CDT Tesfaye pearson MD [facility] CPT-58082 Level 3 Est. Patient 16:36:07 [employer] Kayla jameson MD [facility]-44463 Level 4 Est. Patient 16:00:14 [employer] Tesfaye pearson MD [facility]-44055 Level 4 Est. Patient 11:02:24 [employer] Tesfaye pearson MD [facility]-19361 Level 3 Est. Patient 20:21:43 [employer] aKyla jameson MD [facility]-16476 Level 3 Est. Patient 13:27:28 [employer] Kayla jameson MD [facility]-17434 Level 4 Est. Patient 15:57:17 [employer] Tesfaye pearson MD [facility] CPT-43092 Level 3 New Patient 13:25:47 CDT Tesfaye kidd MD [facility] CPT-91237 Level 3 New Patient 17:22:21 CDT Kayla angel MD [facility] Procedures Code Procedure Name Date Entry Date Standard Desc ription CPT-J2930 Solu Medrol 125 mg (Methyl Prednisolone Sodium Succinate) 17:29:12 [employer] CPT-35614 Abx/Therapy Injection 17:29:11 [employer] CPT-J2930 Solu Medrol 125 mg (Methyl Prednisolone Sodium Succinate) 12:34:38 [employer] CPT-J3420 Vitamin B12 1000mcg (Cyanocobalamin) 09:12:55 CDT CPT-J3420 Vitamin B12 1000mcg (Cyanocobalamin) 16:28:06 [employer] CPT-52242 Venipuncture Draw Fee 08:39:53 CDT CPT-J3420 Vitamin B12 1000mcg (Cyanocobalamin) 08:46:22 CDT CPT-49806 Abx/Therapy Injection 08:46:22 CDT CPT-J3420 Vitamin B12 1000mcg (Cyanocobalamin) 08:41:26 CDT CPT-68782 Abx/Therapy Injection 08:41:26 CDT CPT-J3420 Vitamin B12 1000mcg (Cyanocobalamin) 08:57:15 CDT CPT-14156 Abx/Therapy Injection 08:57:15 CDT CPT-J3420 Vitamin B12 1000mcg (Cyanocobalamin) 10:59:03 CDT CPT-29725 Abx/Therapy Injection 10:59:03 CDT CPT-J3420 Vitamin B12 1000mcg (Cyanocobalamin) 15:05:39 CDT CPT-35244 Abx/Therapy Injection 15:05:39 CDT CPT-J3420 Vitamin B12 1000mcg (Cyanocobalamin) 13:50:45 CDT CPT-J3420 Vitamin B12 1000mcg (Cyanocobalamin) 08:48:55 CDT CPT-53423 Abx/Therapy Injection 08:48:55 CDT CPT-J3420 Vitamin B12 1000mcg (Cyanocobalamin) 09:14:54 CDT CPT-25769 Abx/Therapy Injection 09:14:54 CDT CPT-J3420 Vitamin B12 1000mcg (Cyanocobalamin) 09:06:06 CDT CPT-65356 Abx/Therapy Injection 09:06:06 CDT CPT-J3420 Vitamin B12 1000mcg (Cyanocobalamin) 09:49:14 CDT CPT-38926 Abx/Therapy Injection 09:49:14 CDT CPT-J3420 Vitamin B12 1000mcg (Cyanocobalamin) 09:10:30 [employer] CPT-34148 Abx/Therapy Injection 09:10:30 [employer] CPT-J3420 Vitamin B12 1000mcg (Cyanocobalamin) 09:11:07 [employer] CPT-88665 Abx/Therapy Injection 09:11:07 [employer] CPT-J3420 Vitamin B12 1000mcg (Cyanocobalamin) 09:57:03 [employer] CPT-22627 Abx/Therapy Injection 09:57:03 [employer] CPT-J3420 Vitamin B12 1000mcg (Cyanocobalamin) 09:23:21 [employer] CPT-22153 Abx/Therapy Injection 09:23:21 [employer] CPT-03028 Urine Dip (Floor Use Only) 20:21:44 [employer] 201 02/12/11 CPT-57713 UA Dip Auto (Floor Use Only) 10:04:39 BUGG[employer] LO[employer]ER 2 CPT-46676 Urine Dip (Floor Use Only) 13:27:28 BUGG[employer] LO[employer]ER 201 02/12/01 CPT-00807 Bladder Scan 13:27:28 [employer] CPT-46709 Abd single AP View 14:30:51 [employer] CPT-OV Office Visit 10:15:43 CDT CPT-10966 Urine Dip (Floor Use Only) 17:22:21 CDT 201 02/09/02 CPT-24218 Bladder Scan 17:22:21 CDT
--- OUTSIDE RECORDS SUMMARY | 2020-05-05 12:11 | XMS REPORT | Clinical Summary ---
Author Author Talon, Jeri Wood Organization [employer] Address Unknown Phone Unavailable Allergies, Adverse Reactions, [...] ORAL CAPS 1 tablet daily LACTOBACI LLUS 30376058723 Active Edith Burch MD Active CYMBALTA 60 MG CPEP Take 1 tablet by mouth daily 1 DULOXETINE HCL 48799676075 No Longer Active Edith Burch MD Active CYMBALTA 30 MG CPEP 1 cap by mouth daily with 60mg 201 05/09/11 DULOXETINE HCL 84178566961 No Longer Active Edith Burch MD Activ e FISH OIL 1000 MG CPDR 1 pill by mouth daily for cholesterol 04/18 OMEGA- 3 FATTY ACIDS 36387853782 Active Rosa Jaffe LPN Acti ve RED YEAST RICE 600 MG CAPS 1 pill by mouth daily RED YEAST RICE EXTRACT 30342280156 Active Rosa Jaffe LPN Activ e VENLAFAXINE HCL 37.5 MG TABS 1/4 tab po titrating up to full dose 2 VENLAFAXINE HCL 53293304972 Active Chelsea Barba APRN Activ e DIFLUCAN 100 MG TAB 1 tablet by mouth daily FLU CONAZOLE 08454698023 No Longer Active Tesfaye Sherman MD Active BACTRIM DS 800-160 MG TAB 1 tab by mouth twice daily 2 TRIMETHOPRIM-SULFAMETHOXAZOLE 81685947836 No Longer Active Tesfaye Sherman MD Active BACTRIM DS 800-160 MG TAB 1 tab by mouth twice daily 2 TRIMETHOPRIM-SULFAMETHOXAZOLE 77481097234 No Longer Active Tesfaye Sherman MD Active DIFLUCAN 150 MG TAB 1 tablet by mouth daily FLU CONAZOLE 93534776711 No Longer Active Tesfaye Sherman MD Active BACTRIM DS 800-160 MG TAB 1 tab by mouth twice daily 2 TRIMETHOPRIM-SULFAMETHOXAZOLE 11217272787 No Longer Active Tesfaye Sherman MD Active ROPINIROLE HCL 0.25 MG ORAL TABS 1 TAB PO Q HS ROPINIROLE HCL 98897187052 Active Tesfaye Sherman MD Active CEFTIN 250 MG TAB 1 tablet twice daily x 7 days 11/19 CEFUROXIME AXETIL 70034516464 No Longer Active Tesfaye Sherman MD Acti ve DIFLUCAN 100 MG TABS 1 tablet by mouth every other day for 2 dos es FLUCONAZOLE 31632331899 No Longer Active Tesfaye Sherman MD Active DIFLUCAN 100 MG TAB 1 tablet by mouth daily X 3 DAYS 2 FLUCONAZOLE 06616093897 No Longer Active Rj Moss DO Active MIRTAZAPINE 15 MG ORAL TABS 1/2 tab by mouth at bedtime. MIRTAZAPINE 26204247405 No Longer Active Tesfaye Sherman MD Acti ve BACTRIM DS 800-160 MG TAB 1 tab by mouth twice daily 2 TRIMETHOPRIM-SULFAMETHOXAZOLE 26856975668 No Longer Active Tesfaye Sherman MD Active PRAMIPEXOLE DIHYDROCHLORIDE 0.125 MG ORAL TABS take 1 tablet po qhs for restless leg syndrome. PRAMIPEXOLE DIHYDROCHLORIDE 05882611133 No Longer Active Tesfaye Sherman MD Active MAGNESIUM 400 MG ORAL TABS 1 tab po daily MAGNESI UM 56653876213 Active Chelsea Barba APRN Active SUDAFED 24 HOUR 240 MG ORAL [id number] 1 tab po daily PSEUDOEPHEDRINE HCL 16665688019 Active Chelsea Barba APRN A ctive CETIRIZINE HCL 5 MG TABS Take 1 tablet by mouth daily CETIRIZINE HCL 36373065278 No Longer Active Chelsea Barba APRN Acti ve TRIMETHOPRIM 100 MG TABS 1/2 qd TRIMETHOPRIM 12135293495 No Longer Active Chelsea Barba [employer] Active BACTRIM DS 800-160 MG TAB 1 tab by mouth twice daily 2 TRIMETHOPRIM-SULFAMETHOXAZOLE 02135778414 No Longer Active Tesfaye Sherman MD Active BACTRIM DS 800-160 MG TAB 1 tab by mouth twice daily X 10 DAYS 2 TRIMETHOPRIM-SULFAMETHOXAZOLE 61484806577 No Longer Active Umer Sherman MD Active AMOXICILLIN 500 MG CAPS 1 cap by mouth three times a day AMOXICILLIN 80665733159 No Longer Active Adriana Arredondo Active MECLIZINE HCL 25 MG TAB one tab po qday prn dizziness MECLIZINE HCL 27749470794 Active Tesfaye Sherman MD Active B-12 1000 MCG ORAL LOZG 1 tab po daily CYANOCOBAL STANTON 54526250070 Active Tesfaye Sherman MD Active VITAMIN D3 2000 UNIT TABS 1 daily, for vitamin D deficiency 2014 CHOLECALCIFEROL 81025334672 No Longer Active Tesfaye Sherman MD Active TIZANIDINE HCL 2 MG TABS take 1-2 tablet by mouth at bedtime at 9pm PRN TIZANIDINE HCL 43448880610 Active Tesfaye Owusu Active ZITHROMAX 250 MG TAB 2 po today, then 1 po q days 2-5 AZITHROMYCIN 99951892401 No Longer Active Tesfaye Sherman MD Acti ve BACTRIM DS 800-160 MG TAB 1 tab by mouth twice daily 2 TRIMETHOPRIM-SULFAMETHOXAZOLE 86184900670 No Longer Active Tesfaye Sherman MD Active PRELIEF 340 (65-50) MG (CA-P) ORAL TABS CALCIUM GLYCEROPHOSPHATE 96471946591 Active Tesfaye Sherman MD Active [facility] NIACIN FLUSH FREE 400-100 MG CAPS 1 daily NIACIN-INOSITOL 87672742470 Active Kayla Cooper MD Active DIFLUCAN 150 MG TABS 1 qd FLUCONAZOLE 98800 368940 No Longer Active Kayla Cooper MD Active FLUTICASONE PROPIONATE 50 MCG/ACT SUSP 1 spray each nostril twice daily FLUTICASONE PROPIONATE 56506377378 Active Tesfaye armenta MD Active LOVASTATIN 20 MG TABS Take 1 tablet by mouth daily LOVASTATIN 01239560919 No Longer Active Tesfaye Sherman MD Active MELOXICAM 7.5 MG TABS 1 tablet by mouth daily M ELOXICAM 15040348552 No Longer Active Tesfaye Sherman MD Active GABAPENTIN 300 MG CAPS Take two tablets by mouth every evening GABAPENTIN 23201937129 No Longer Active Edith Burch MD Active OXYCODONE-ACETAMINOPHEN 5-325 MG TABS Take one tablet by mouth every 6 hours as needed. Max 12 tabs/day as needed OXYCODONE-ACETAMINOP HEN 67250114563 Active Tesfaye Sherman MD Active CLONAZEPAM 0.5 MG TABS Take one tablet in the morning and 1.5 table t at 7pm CLONAZEPAM 96492557853 Active Kayla Cooper MD Active BACLOFEN 10 MG TABS Take one tablet by mouth three times a day BACLOFEN 81454585945 Active Kayla Cooper MD Active GABAPENTIN 300 MG CAPS Take two tablets by mouth every evening GABAPENTIN 300 MG CAPS 863745 GABAPENTIN Inactive MELOXICAM 7.5 MG TABS 1 tablet by mouth daily MELOXICAM 7.5 MG TABS 164085 MELOXICAM Inactive LOVASTATIN 20 MG TABS Take 1 tablet by mouth daily 201 02/12/20 LOVASTATIN 20 MG TABS 539171 LOVASTATIN Inactive DIFLUCAN 150 MG TABS 1 qd DIFLUCAN 150 MG T ABS 164470 FLUCONAZOLE Inactive VITAMIN D3 2000 UNIT TABS 1 daily, for vitamin D deficiency 2014 VITAMIN D3 2000 UNIT TABS CHOLECALCIFEROL Inacti ve AMOXICILLIN 500 MG CAPS 1 cap by mouth three times a day AMOXICILLIN 500 MG CAPS 978972 AMOXICILLIN Inactive BACTRIM DS 800-160 MG TAB 1 tab by mouth twice daily X 10 DAYS 2 BACTRIM DS 800-160 MG TAB 19830105 TRIMETHOPRIM-SULFAMETH OXAZOLE Inactive TRIMETHOPRIM 100 MG TABS 1/2 qd TRIMETHOPRI M 100 MG TABS 19830102 TRIMETHOPRIM Inactive CETIRIZINE HCL 5 MG TABS Take 1 tablet by mouth daily CETIRIZINE HCL 5 MG TABS 0329239 CETIRIZINE HCL Inactive PRAMIPEXOLE DIHYDROCHLORIDE 0.125 MG ORAL TABS take 1 tablet po qhs for restless leg syndrome. PRAMIPEXOLE DIHYDROC HLORIDE 0.125 MG ORAL TABS 423727 PRAMIPEXOLE DIHYDROCHLORIDE Inactive MIRTAZAPINE 15 MG ORAL TABS 1/2 tab by mouth at bedtime. MIRTAZAPINE 15 MG ORAL TABS 508876 MIRTAZAPINE Inactive DIFLUCAN 100 MG TAB 1 tablet by mouth daily X 3 DAYS 2 DIFLUCAN 100 MG TAB 558774 FLUCONAZOLE Inactive DIFLUCAN 100 MG TABS 1 tablet by mouth every other day for 2 dos es DIFLUCAN 100 MG TABS 220715 FLUCONAZOLE Inactive CEFTIN 250 MG TAB 1 tablet twice daily x 7 days 11/19 CEFTIN 250 MG TAB 259952 CEFUROXIME AXETIL Inactive CYMBALTA 30 MG CPEP 1 cap by mouth daily with 60mg 201 05/09/11 CYMBALTA 30 MG CPEP 480861 DULOXETINE HCL Inactive CYMBALTA 60 MG CPEP Take 1 tablet by mouth daily 05/13 CYMBALTA 60 MG CPEP 072305 DULOXETINE HCL Inactive BACTRIM DS 800-160 MG TAB 1 tab by mouth twice daily 2 BACTRIM DS 800-160 MG TAB 043549 TRIMETHOPRIM-SULFAMETHOXAZOLE Inac tive ZITHROMAX 250 MG TAB 2 po today, then 1 po q days 2-5 ZITHROMAX 250 MG TAB 9570354 AZITHROMYCIN Inactive BACTRIM DS 800-160 MG TAB [...] Value Unit Range Description blood pressure, diastolic 85 mm[Hg] BP lyon [...] ... - Chemistry sodium, serum 144 mmol/L 976-561 1508/06/14 carbon dioxide, venous blood 29.4 mmol/L 21.0-32 .0 potassium, serum 4.4 mmol/L 3.5-5.2 chloride, serum 108 mmol/L 98-107 blood glucose 100 mg/dL 65-110 urea nitrogen, blood 9 mg/dL 7-18 creatinine, serum 0.67 mg/dL 0.55-1.30 alanine aminotransferase (SGPT), serum 24 U/L 12-78 aspartate aminotransferase (SGOT), serum 15 U/L 15-37 calcium, serum 9.3 mg/dL 8.5-10.1 bilirubin, serum, total 0.50 mg/dL 0.00-1.00 cholesterol, serum 268 mg/dL 316-610 2508/06/14 triglyceride, serum, fasting 126 mg/dL 30-200 HDL [...] mg/dL Encounters Code Encounter Date Provider Facility CPT-57456 Level 4 Est. Patient 13:24:25 CDT Stephanie MERCADO [facility] CPT-17705 Level 4 Est. Patient 09:14:56 CDT Tesfaye pearson MD [facility] CPT-69353 Level 4 Est. Patient 18:40:25 FRONT SIGHT ATTACHER Tesfaye pearson MD [facility] CPT-30731 Level 4 Est. Patient 18:13:07 FRONT SIGHT ATTACHER Tesfaye pearson MD [facility] CPT-30382 Level 3 Est. Patient 10:46:32 CDT Rj cotto DO [facility] CPT-19758 Level 4 Est. Patient 20:19:25 CDT Tesfaye pearson MD [facility] CPT-86930 Level 3 Est. Patient 09:07:31 CDT Tesfaye pearson MD [facility] CPT-25525 Level 4 Est. Patient 13:12:56 CDT Tesfaye pearson MD [facility] CPT-99093 Level 4 Est. Patient 21:24:55 FRONT SIGHT ATTACHER Tesfaye pearson MD [facility] CPT-94742 Level 3 Est. Patient 13:45:04 FRONT SIGHT ATTACHER Tesfaye pearson MD [facility] CPT-26908 Level 4 Est. Patient 13:50:45 CDT Tesfaye pearson MD [facility] CPT-97296 Level 3 Est. Patient 10:16:10 CDT Tesfaye pearson MD [facility] CPT-34090 Level 3 Est. Patient 16:36:07 FRONT SIGHT ATTACHER Kayla jameson MD [facility] CPT-64159 Level 4 Est. Patient 16:00:14 FRONT SIGHT ATTACHER Tesfaye pearson MD [facility] CPT-90382 Level 4 Est. Patient 11:02:24 FRONT SIGHT ATTACHER Tesfaye pearson MD [facility] CPT-85436 Level 3 Est. Patient 20:21:43 FRONT SIGHT ATTACHER Kayla jameson MD [facility] CPT-55564 Level 3 Est. Patient 13:27:28 FRONT SIGHT ATTACHER Kayla jameson MD [facility] CPT-45521 Level 4 Est. Patient 15:57:17 FRONT SIGHT ATTACHER Tesfaye pearson MD [facility] CPT-17536 Level 3 New Patient 13:25:47 CDT Tesfaye kidd MD [facility] CPT-34059 Level 3 New Patient 17:22:21 CDT Kayla angel MD [facility] Procedures Code Procedure Name Date Entry Date Standard Desc ription CPT-80245 Bone Density - XRAY USE ONLY 11:43:58 CDT 2 CPT-14407 Bone Density - XRAY USE ONLY 10:05:16 CDT 2 CPT-16804 Prv Med New Pt 40-64 yrs 18:19:25 CDT 2016 CPT-21562 Foot, right, comp min 3V - XRAY USE ONLY 10:38:34 CDT CPT-G0439 Subsequent Annual Wellness Exam 13:55:04 CDT CPT-G0438 Initial Annual Wellness Exam 11:23:17 CD T CPT-J2930 Solu Medrol 125 mg (Methyl Prednisolone Sodium Succinate) 17:29:12 FRONT SIGHT ATTACHER CPT-06603 Abx/Therapy Injection 17:29:11 FRONT SIGHT ATTACHER CPT-J2930 Solu Medrol 125 mg (Methyl Prednisolone Sodium Succinate) 12:34:38 FRONT SIGHT ATTACHER CPT-J3420 Vitamin B12 1000mcg (Cyanocobalamin) 09:12:55 CDT CPT-J3420 Vitamin B12 1000mcg (Cyanocobalamin) 16:28:06 FRONT SIGHT ATTACHER CPT-44435 Venipuncture Draw Fee 08:39:53 CDT CPT-J3420 Vitamin B12 1000mcg (Cyanocobalamin) 08:46:22 CDT CPT-77623 Abx/Therapy Injection 08:46:22 CDT CPT-J3420 Vitamin B12 1000mcg (Cyanocobalamin) 08:41:26 CDT CPT-23358 Abx/Therapy Injection 08:41:26 CDT CPT-J3420 Vitamin B12 1000mcg (Cyanocobalamin) 08:57:15 CDT CPT-68369 Abx/Therapy Injection 08:57:15 CDT CPT-J3420 Vitamin B12 1000mcg (Cyanocobalamin) 10:59:03 CDT CPT-05871 Abx/Therapy Injection 10:59:03 CDT CPT-J3420 Vitamin B12 1000mcg (Cyanocobalamin) 15:05:39 CDT CPT-95114 Abx/Therapy Injection 15:05:39 CDT CPT-J3420 Vitamin B12 1000mcg (Cyanocobalamin) 13:50:45 CDT CPT-J3420 Vitamin B12 1000mcg (Cyanocobalamin) 08:48:55 CDT CPT-93988 Abx/Therapy Injection 08:48:55 CDT CPT-J3420 Vitamin B12 1000mcg (Cyanocobalamin) 09:14:54 CDT CPT-07416 Abx/Therapy Injection 09:14:54 CDT CPT-J3420 Vitamin B12 1000mcg (Cyanocobalamin) 09:06:06 CDT CPT-90582 Abx/Therapy Injection 09:06:06 CDT CPT-J3420 Vitamin B12 1000mcg (Cyanocobalamin) 09:49:14 CDT CPT-33310 Abx/Therapy Injection 09:49:14 CDT CPT-J3420 Vitamin B12 1000mcg (Cyanocobalamin) 09:10:30 FRONT SIGHT ATTACHER CPT-55097 Abx/Therapy Injection 09:10:30 FRONT SIGHT ATTACHER CPT-J3420 Vitamin B12 1000mcg (Cyanocobalamin) 09:11:07 FRONT SIGHT ATTACHER CPT-43844 Abx/Therapy Injection 09:11:07 FRONT SIGHT ATTACHER CPT-J3420 Vitamin B12 1000mcg (Cyanocobalamin) 09:57:03 FRONT SIGHT ATTACHER CPT-87187 Abx/Therapy Injection 09:57:03 FRONT SIGHT ATTACHER CPT-J3420 Vitamin B12 1000mcg (Cyanocobalamin) 09:23:21 FRONT SIGHT ATTACHER CPT-31283 Abx/Therapy Injection 09:23:21 FRONT SIGHT ATTACHER CPT-99488 Urine Dip (Floor Use Only) 20:21:44 FRONT SIGHT ATTACHER 201 02/12/11 CPT-51046 UA Dip Auto (Floor Use Only) 10:04:39 FRONT SIGHT ATTACHER 2 CPT-27459 Urine Dip (Floor Use Only) 13:27:28 FRONT SIGHT ATTACHER 201 02/12/01 CPT-14461 Bladder Scan 13:27:28 FRONT SIGHT ATTACHER CPT-11482 Abd single AP View 14:30:51 FRONT SIGHT ATTACHER CPT-OV Office Visit 10:15:43 CDT CPT-20937 Urine Dip (Floor Use Only) 17:22:21 CDT 201 02/09/02 CPT-41334 Bladder Scan 17:22:21 CDT
--- OUTSIDE RECORDS SUMMARY | 2020-05-05 12:11 | XMS REPORT | Clinical Summary ---
Author Author Jeri Hanley Organization [employer] Address Unknown Phone Unavailable Allergies, Adverse Reactions, [...] up to full dose 2 VENLAFAXINE HCL [id number] Active Chelsea Barba APRN Activ e DIFLUCAN 100 MG TAB 1 tablet by mouth daily FLU CONAZOLE 74588929994 No Longer Active Tesfaye Sherman MD Active BACTRIM DS 800-160 MG TAB 1 tab by mouth twice daily 2 TRIMETHOPRIM-SULFAMETHOXAZOLE 05220407581 No Longer Active Tesfaye Sherman MD Active BACTRIM DS 800-160 MG TAB 1 tab by mouth twice daily 2 TRIMETHOPRIM-SULFAMETHOXAZOLE 37070858820 No Longer Active Tesfaye Sherman MD Active DIFLUCAN 150 MG TAB 1 tablet by mouth daily FLU CONAZOLE 23542726970 No Longer Active Tesfaye Sherman MD Active BACTRIM DS 800-160 MG TAB 1 tab by mouth twice daily 2 TRIMETHOPRIM-SULFAMETHOXAZOLE 84469626590 No Longer Active Tesfaye Sherman MD Active ROPINIROLE HCL 0.25 MG ORAL TABS 1 TAB PO Q HS ROPINIROLE HCL 62363416891 Active Tesfaye Sherman MD Active CYMBALTA 30 MG CPEP 1 cap by mouth daily with 60mg DULOXETINE HCL 34835730448 Active Tesfaye Sherman MD Active CEFTIN 250 MG TAB 1 tablet twice daily x 7 days 11/19 CEFUROXIME AXETIL 82252717192 No Longer Active Tesfaye Sherman MD Acti ve DIFLUCAN 100 MG TABS 1 tablet by mouth every other day for 2 dos es FLUCONAZOLE 79544056363 No Longer Active Tesfaye Sherman MD Active DIFLUCAN 100 MG TAB 1 tablet by mouth daily X 3 DAYS 2 FLUCONAZOLE 86004647026 No Longer Active Rj Moss DO Active MIRTAZAPINE 15 MG ORAL TABS 1/2 tab by mouth at bedtime. MIRTAZAPINE 68797357771 No Longer Active Tesfaye Sherman MD Acti ve BACTRIM DS 800-160 MG TAB 1 tab by mouth twice daily 2 TRIMETHOPRIM-SULFAMETHOXAZOLE 36098698102 No Longer Active Tesfaye Sherman MD Active PRAMIPEXOLE DIHYDROCHLORIDE 0.125 MG ORAL TABS take 1 tablet po qhs for restless leg syndrome. PRAMIPEXOLE DIHYDROCHLORIDE 98638639849 No Longer Active Tesfaye Sherman MD Active MAGNESIUM 400 MG ORAL TABS 1 tab po daily MAGNESI UM 04783963159 Active Chelsea Barba APRN Active SUDAFED 24 HOUR 240 MG ORAL [id number] 1 tab po daily PSEUDOEPHEDRINE HCL 11869294642 Active Chelsea Barba APRN A ctive CETIRIZINE HCL 5 MG TABS Take 1 tablet by mouth daily CETIRIZINE HCL 27124587797 No Longer Active Chelsea Barba APRN Acti ve TRIMETHOPRIM 100 MG TABS 1/2 qd TRIMETHOPRIM 91617808519 No Longer Active Chelsea Barba APRN Active BACTRIM DS 800-160 MG TAB 1 tab by mouth twice daily 2 TRIMETHOPRIM-SULFAMETHOXAZOLE 00124717124 No Longer Active Tesfaye Sherman MD Active BACTRIM DS 800-160 MG TAB 1 tab by mouth twice daily X 10 DAYS 2 TRIMETHOPRIM-SULFAMETHOXAZOLE 86402096671 No Longer Active Umer Sherman MD Active AMOXICILLIN 500 MG CAPS 1 cap by mouth three times a day AMOXICILLIN 09669822218 No Longer Active Adriana Arredondo Active MECLIZINE HCL 25 MG TAB one tab po qday prn dizziness MECLIZINE HCL 72023609908 Active Tesfaye Sherman MD Active B-12 1000 MCG ORAL LOZG 1 tab po daily CYANOCOBAL STANTON 72190859618 Active Tesfaye Sherman MD Active VITAMIN D3 2000 UNIT TABS 1 daily, for vitamin D deficiency 2014 CHOLECALCIFEROL 55007734424 No Longer Active Tesfaye Sherman MD Active TIZANIDINE HCL 2 MG TABS take 1-2 tablet by mouth ev at bedtime at 9pm PRN TIZANIDINE HCL 33484850486 Active Tesfaye Owusu Active ZITHROMAX 250 MG TAB 2 po today, then 1 po q days 2-5 AZITHROMYCIN 51624406016 No Longer Active Tesfaye Sherman MD Acti ve BACTRIM DS 800-160 MG TAB 1 tab by mouth twice daily 2 TRIMETHOPRIM-SULFAMETHOXAZOLE 24939307651 No Longer Active Tesfaye Sherman MD Active PRELIEF 340 (65-50) MG (CA-P) ORAL TABS CALCIUM GLYCEROPHOSPHATE 65014792255 Active Tesfaye Sherman MD Active [facility] NIACIN FLUSH FREE 400-100 MG CAPS 1 daily NIACIN-INOSITOL 85807528358 Active Kayla Cooper MD Active DIFLUCAN 150 MG TABS 1 qd FLUCONAZOLE 92571 941644 No Longer Active Kayla Cooper MD Active FLUTICASONE PROPIONATE 50 MCG/ACT SUSP 1 spray each nostril twice daily FLUTICASONE PROPIONATE 13169156972 Active Tesfaye armenta MD Active LOVASTATIN 20 MG TABS Take 1 tablet by mouth daily LOVASTATIN 77137114399 No Longer Active Tesfaye Sherman MD Active MELOXICAM 7.5 MG TABS 1 tablet by mouth daily Gisela ELOXICAM 19835098932 No Longer Active Tesfaye Sherman MD Active GABAPENTIN 300 MG CAPS Take two tablets by mouth every evening GABAPENTIN 02766705359 No Longer Active Edith Burch MD Active OXYCODONE-ACETAMINOPHEN 5-325 MG TABS Take one tablet by mouth every 6 hours as needed. Max 12 tabs/day as needed OXYCODONE-ACETAMINOP HEN 16865728149 Active Tesfaye Sherman MD Active CYMBALTA 60 MG CPEP Take 1 tablet by mouth daily D ULOXETINE HCL 47422677917 Active Kayla Cooper MD Active CLONAZEPAM 0.5 MG TABS Take one tablet in the morning and 1.5 table t at 7pm CLONAZEPAM 49822056557 Active Kayla Cooper MD Active BACLOFEN 10 MG TABS Take one tablet by mouth three times a day BACLOFEN 53482851174 Active Kayla Cooper MD Active GABAPENTIN 300 MG CAPS Take two tablets by mouth every evening GABAPENTIN 300 MG CAPS 884776 GABAPENTIN Inactive MELOXICAM 7.5 MG TABS 1 tablet by mouth daily MELOXICAM 7.5 MG TABS 890352 MELOXICAM Inactive LOVASTATIN 20 MG TABS Take 1 tablet by mouth daily 201 02/12/20 LOVASTATIN 20 MG TABS 555947 LOVASTATIN Inactive DIFLUCAN 150 MG TABS 1 qd DIFLUCAN 150 MG T ABS 472931 FLUCONAZOLE Inactive VITAMIN D3 2000 UNIT TABS 1 daily, for vitamin D deficiency 2014 VITAMIN D3 2000 UNIT TABS CHOLECALCIFEROL Inacti ve AMOXICILLIN 500 MG CAPS 1 cap by mouth three times a day AMOXICILLIN 500 MG CAPS 364491 AMOXICILLIN Inactive BACTRIM DS 800-160 MG TAB 1 tab by mouth twice daily X 10 DAYS 2 BACTRIM DS 800-160 MG TAB 19830105 TRIMETHOPRIM-SULFAMETH OXAZOLE Inactive TRIMETHOPRIM 100 MG TABS 1/2 qd TRIMETHOPRI M 100 MG TABS 000738 TRIMETHOPRIM Inactive CETIRIZINE HCL 5 MG TABS Take 1 tablet by mouth daily CETIRIZINE HCL 5 MG TABS 5376193 CETIRIZINE HCL Inactive PRAMIPEXOLE DIHYDROCHLORIDE 0.125 MG ORAL TABS take 1 tablet po qhs for restless leg syndrome. PRAMIPEXOLE DIHYDROC HLORIDE 0.125 MG ORAL TABS 791817 PRAMIPEXOLE DIHYDROCHLORIDE Inactive MIRTAZAPINE 15 MG ORAL TABS 1/2 tab by mouth at bedtime. MIRTAZAPINE 15 MG ORAL TABS 880721 MIRTAZAPINE Inactive DIFLUCAN 100 MG TAB 1 tablet by mouth daily X 3 DAYS 2 DIFLUCAN 100 MG TAB 750097 FLUCONAZOLE Inactive DIFLUCAN 100 MG TABS 1 tablet by mouth every other day for 2 dos es DIFLUCAN 100 MG TABS 009584 FLUCONAZOLE Inactive CEFTIN 250 MG TAB 1 tablet twice daily x 7 days 11/19 CEFTIN 250 MG TAB 797705 CEFUROXIME AXETIL Inactive BACTRIM DS 800-160 MG TAB 1 tab by mouth twice daily 2 BACTRIM DS 800-160 MG TAB 19830105 TRIMETHOPRIM-SULFAMETHOXAZOLE Inac tive ZITHROMAX 250 MG TAB 2 po today, then 1 po q days 2-5 ZITHROMAX 250 MG TAB 7482177 AZITHROMYCIN Inactive BACTRIM DS 800-160 MG TAB [...] daily 2 BACTRIM DS 800-160 MG TAB 322679 TRIMETHOPRIM-SULFAMETHOXAZOLE Inac tive DIFLUCAN 100 MG TAB 1 tablet by mouth daily DIFLUCAN 100 MG TAB 923527 FLUCONAZOLE Inactive Advance Directives Directive Description Start [...] ... - Chemistry sodium, serum 144 mmol/L 781-689 6645/06/14 carbon dioxide, venous blood 29.4 mmol/L 21.0-32 .0 potassium, serum 4.4 mmol/L 3.5-5.2 chloride, serum 108 mmol/L 98-107 blood glucose 100 mg/dL 65-110 urea nitrogen, blood 9 mg/dL 7-18 creatinine, serum 0.67 mg/dL 0.55-1.30 alanine aminotransferase (SGPT), serum 24 U/L 12-78 aspartate aminotransferase (SGOT), serum 15 U/L 15-37 calcium, serum 9.3 mg/dL 8.5-10.1 bilirubin, serum, total 0.50 mg/dL 0.00-1.00 cholesterol, serum 268 mg/dL 711-068 4577/06/14 triglyceride, serum, fasting 126 mg/dL 30-200 HDL [...] mg/dL Encounters Code Encounter Date Provider Facility CPT-86580 Level 4 Est. Patient 09:14:56 CDT Tesfaye pearson MD [facility] CPT-29637 Level 4 Est. Patient 18:40:25 ANIMAL RIDE ATTENDANT Tesfaye pearson MD [facility] CPT-84575 Level 4 Est. Patient 18:13:07 ANIMAL RIDE ATTENDANT Tesfaye pearson MD [facility] CPT-75985 Level 3 Est. Patient 10:46:32 CDT Rj cotto DO [facility] CPT-59560 Level 4 Est. Patient 20:19:25 CDT Tesfaye pearson MD [facility] CPT-00512 Level 3 Est. Patient 09:07:31 CDT Tesfaye pearson MD [facility] CPT-57186 Level 4 Est. Patient 13:12:56 CDT Tesfaye pearson MD [facility] CPT-25735 Level 4 Est. Patient 21:24:55 ANIMAL RIDE ATTENDANT Tesfaye pearson MD [facility] CPT-11269 Level 3 Est. Patient 13:45:04 ANIMAL RIDE ATTENDANT Tesfaye pearson MD [facility] CPT-10854 Level 4 Est. Patient 13:50:45 CDT Tesfaye pearson MD [facility] CPT-35896 Level 3 Est. Patient 10:16:10 CDT Tesfaye pearson MD [facility] CPT-79950 Level 3 Est. Patient 16:36:07 ANIMAL RIDE ATTENDANT Kayla jameson MD [facility] CPT-45716 Level 4 Est. Patient 16:00:14 ANIMAL RIDE ATTENDANT Tesfaye pearson MD [facility] CPT-71948 Level 4 Est. Patient 11:02:24 ANIMAL RIDE ATTENDANT Tesfaye pearson MD [facility] CPT-40149 Level 3 Est. Patient 20:21:43 ANIMAL RIDE ATTENDANT Kayla jameson MD [facility] CPT-98850 Level 3 Est. Patient 13:27:28 ANIMAL RIDE ATTENDANT Kayla jameson MD [facility] CPT-97899 Level 4 Est. Patient 15:57:17 ANIMAL RIDE ATTENDANT Tesfaye pearson MD [facility] CPT-97336 Level 3 New Patient 13:25:47 CDT Tesfaye kidd MD [facility] CPT-32570 Level 3 New Patient 17:22:21 CDT Kayla angel MD [facility] Procedures Code Procedure Name Date Entry Date Standard Desc ription CPT-28258 Foot, right, comp min 3V - XRAY USE ONLY 10:38:34 CDT CPT-G0439 Subsequent Annual Wellness Exam 13:55:04 CDT CPT-G0438 Initial Annual Wellness Exam 11:23:17 CD T CPT-J2930 Solu Medrol 125 mg (Methyl Prednisolone Sodium Succinate) 17:29:12 ANIMAL RIDE ATTENDANT CPT-02768 Abx/Therapy Injection 17:29:11 ANIMAL RIDE ATTENDANT CPT-J2930 Solu Medrol 125 mg (Methyl Prednisolone Sodium Succinate) 12:34:38 ANIMAL RIDE ATTENDANT CPT-J3420 Vitamin B12 1000mcg (Cyanocobalamin) 09:12:55 CDT CPT-J3420 Vitamin B12 1000mcg (Cyanocobalamin) 16:28:06 ANIMAL RIDE ATTENDANT CPT-69466 Venipuncture Draw Fee 08:39:53 CDT CPT-J3420 Vitamin B12 1000mcg (Cyanocobalamin) 08:46:22 CDT CPT-04774 Abx/Therapy Injection 08:46:22 CDT CPT-J3420 Vitamin B12 1000mcg (Cyanocobalamin) 08:41:26 CDT CPT-06642 Abx/Therapy Injection 08:41:26 CDT CPT-J3420 Vitamin B12 1000mcg (Cyanocobalamin) 08:57:15 CDT CPT-00303 Abx/Therapy Injection 08:57:15 CDT CPT-J3420 Vitamin B12 1000mcg (Cyanocobalamin) 10:59:03 CDT CPT-79293 Abx/Therapy Injection 10:59:03 CDT CPT-J3420 Vitamin B12 1000mcg (Cyanocobalamin) 15:05:39 CDT CPT-53021 Abx/Therapy Injection 15:05:39 CDT CPT-J3420 Vitamin B12 1000mcg (Cyanocobalamin) 13:50:45 CDT CPT-J3420 Vitamin B12 1000mcg (Cyanocobalamin) 08:48:55 CDT CPT-09054 Abx/Therapy Injection 08:48:55 CDT CPT-J3420 Vitamin B12 1000mcg (Cyanocobalamin) 09:14:54 CDT CPT-86153 Abx/Therapy Injection 09:14:54 CDT CPT-J3420 Vitamin B12 1000mcg (Cyanocobalamin) 09:06:06 CDT CPT-70787 Abx/Therapy Injection 09:06:06 CDT CPT-J3420 Vitamin B12 1000mcg (Cyanocobalamin) 09:49:14 CDT CPT-87654 Abx/Therapy Injection 09:49:14 CDT CPT-J3420 Vitamin B12 1000mcg (Cyanocobalamin) 09:10:30 ANIMAL RIDE ATTENDANT CPT-30995 Abx/Therapy Injection 09:10:30 ANIMAL RIDE ATTENDANT CPT-J3420 Vitamin B12 1000mcg (Cyanocobalamin) 09:11:07 ANIMAL RIDE ATTENDANT CPT-14919 Abx/Therapy Injection 09:11:07 ANIMAL RIDE ATTENDANT CPT-J3420 Vitamin B12 1000mcg (Cyanocobalamin) 09:57:03 ANIMAL RIDE ATTENDANT CPT-69144 Abx/Therapy Injection 09:57:03 ANIMAL RIDE ATTENDANT CPT-J3420 Vitamin B12 1000mcg (Cyanocobalamin) 09:23:21 ANIMAL RIDE ATTENDANT CPT-83584 Abx/Therapy Injection 09:23:21 ANIMAL RIDE ATTENDANT CPT-61788 Urine Dip (Floor Use Only) 20:21:44 ANIMAL RIDE ATTENDANT 201 02/12/11 CPT-70891 UA Dip Auto (Floor Use Only) 10:04:39 ANIMAL RIDE ATTENDANT 2 CPT-32351 Urine Dip (Floor Use Only) 13:27:28 ANIMAL RIDE ATTENDANT 201 02/12/01 CPT-75847 Bladder Scan 13:27:28 ANIMAL RIDE ATTENDANT CPT-32368 Abd single AP View 14:30:51 ANIMAL RIDE ATTENDANT CPT-OV Office Visit 10:15:43 CDT CPT-07595 Urine Dip (Floor Use Only) 17:22:21 CDT 201 02/09/02 CPT-53237 Bladder Scan 17:22:21 CDT
--- OUTSIDE RECORDS SUMMARY | 2020-05-05 12:11 | XMS REPORT | Clinical Summary ---
Author Author Jeri Hanley Organization [employer] Address Unknown Phone Unavailable Allergies, Adverse Reactions, [...] Unspecified sinusitis (chronic) Dysuria 788.1 Active Tesfaye Sheramn MD Dysuria Medication List Medication Instructions Start Date Stop Date Generic Name NDC Status Provider Patient Instruction DIFLUCAN 150 MG TAB 1 tablet by mouth daily FLU CONAZOLE 32760241671 No Longer Active Tesfaye Sherman MD Active BACTRIM DS 800-160 MG TAB 1 tab by mouth twice daily 2 TRIMETHOPRIM-SULFAMETHOXAZOLE 01073971076 No Longer Active Tesfaye Sherman MD Active ROPINIROLE HCL 0.25 MG ORAL TABS 1 TAB PO Q HS ROPINIROLE HCL 33975082990 Active Tesfaye Sherman MD Active CYMBALTA 30 MG CPEP 1 cap by mouth daily with 60mg DULOXETINE HCL 86864438102 Active Tesfaye Sherman MD Active CEFTIN 250 MG TAB 1 tablet twice daily x 7 days 11/19 CEFUROXIME AXETIL 22869324778 No Longer Active Tesfaye Sherman MD Acti ve DIFLUCAN 100 MG TABS 1 tablet by mouth every other day for 2 dos es FLUCONAZOLE 06785093813 No Longer Active Tesfaye Sherman MD Active DIFLUCAN 100 MG TAB 1 tablet by mouth daily X 3 DAYS 2 FLUCONAZOLE 33583373359 No Longer Active Rj Moss DO Active MIRTAZAPINE 15 MG ORAL TABS 1/2 tab by mouth at bedtime. MIRTAZAPINE 31018926196 No Longer Active Tesfaye Sherman MD Acti ve BACTRIM DS 800-160 MG TAB 1 tab by mouth twice daily 2 TRIMETHOPRIM-SULFAMETHOXAZOLE 80170861740 No Longer Active Tesfaye Sherman MD Active PRAMIPEXOLE DIHYDROCHLORIDE 0.125 MG ORAL TABS take 1 tablet po qhs for restless leg syndrome. PRAMIPEXOLE DIHYDROCHLORIDE 79854281625 No Longer Active Tesfaye Sherman MD Active MAGNESIUM 400 MG ORAL TABS 1 tab po [facility] 125[facility] Active Chelsea Barba APRN Active SUDAFED 24 HOUR 240 MG ORAL [id number] 1 tab po daily PSEUDOEPHEDRINE HCL 95797238503 Active Chelsea Barba APRN A ctive CETIRIZINE HCL 5 MG TABS Take 1 tablet by mouth daily CETIRIZINE HCL 70264940369 No Longer Active Chelsea Barba APRN Acti ve TRIMETHOPRIM 100 MG TABS 1/2 qd TRIMETHOPRIM 24646535170 No Longer Active Chelsea Barba APRN Active BACTRIM DS 800-160 MG TAB 1 tab by mouth twice daily 2 TRIMETHOPRIM-SULFAMETHOXAZOLE 27137581093 No Longer Active Tesfaye Sherman MD Active BACTRIM DS 800-160 MG TAB 1 tab by mouth twice daily X 10 DAYS 2 TRIMETHOPRIM-SULFAMETHOXAZOLE 30638380625 No Longer Active Umer Sherman MD Active AMOXICILLIN 500 MG CAPS 1 cap by mouth three times a day AMOXICILLIN 03913929149 No Longer Active Adriana Arredondo Active MECLIZINE HCL 25 MG TAB one tab po qday prn dizziness MECLIZINE HCL 74094556676 Active Tesfaye Sherman MD Active B-12 1000 MCG ORAL LOZG 1 tab po daily CYANOCOBAL STANTON 90714727164 Active Tesfaye Sherman MD Active VITAMIN D3 2000 UNIT TABS 1 daily, for vitamin D deficiency 2014 CHOLECALCIFEROL 44428221668 No Longer Active Tesfaye Sherman MD Active TIZANIDINE HCL 2 MG TABS take 1-2 tablet by mouth ev at bedtime at 9pm PRN TIZANIDINE HCL 60371640250 Active Tesfaye Owusu Active ZITHROMAX 250 MG TAB 2 po today, then 1 po q days 2-5 AZITHROMYCIN 04207084676 No Longer Active Tesfaye Sherman MD Acti ve BACTRIM DS 800-160 MG TAB 1 tab by mouth twice daily 2 TRIMETHOPRIM-SULFAMETHOXAZOLE 88102982894 No Longer Active Tesfaye Sherman MD Active PRELIEF 340 (65-50) MG (CA-P) ORAL TABS CALCIUM GLYCEROPHOSPHATE 36005767408 Active Tesfaye Sherman MD Active [facility] NIACIN FLUSH FREE 400-100 MG CAPS 1 daily NIACIN-INOSITOL 13378185831 Active Kayla Cooper MD Active DIFLUCAN 150 MG TABS 1 qd FLUCONAZOLE 89104 144419 No Longer Active Kayla Cooper MD Active FLUTICASONE PROPIONATE 50 MCG/ACT SUSP 1 spray each nostril twice daily FLUTICASONE PROPIONATE 19269603074 Active Tesfaye armenta MD Active LOVASTATIN 20 MG TABS Take 1 tablet by mouth daily LOVASTATIN 76916003986 No Longer Active Tesfaye Sherman MD Active MELOXICAM 7.5 MG TABS 1 tablet by mouth daily M ELOXICAM 39685087246 No Longer Active Tesfaye Sherman MD Active GABAPENTIN 300 MG CAPS Take two tablets by mouth every evening GABAPENTIN 94680131692 No Longer Active Edith Burch MD Active OXYCODONE-ACETAMINOPHEN 5-325 MG TABS Take one tablet by mouth every 6 hours as needed. Max 12 tabs/day as needed OXYCODONE-ACETAMINOP HEN 49694436618 Active Tesfaye Sherman MD Active CYMBALTA 60 MG CPEP Take 1 tablet by mouth daily D ULOXETINE HCL 72402402331 Active Kayla Cooper MD Active CLONAZEPAM 0.5 MG TABS Take one tablet in the morning and 1.5 table t at 7pm CLONAZEPAM 59187955261 Active Kayla Cooper MD Active BACLOFEN 10 MG TABS Take one tablet by mouth three times a day BACLOFEN 54011508556 Active Kayla Cooper MD Active GABAPENTIN 300 MG CAPS Take two tablets by mouth every evening GABAPENTIN 300 MG CAPS 519311 GABAPENTIN Inactive MELOXICAM 7.5 MG TABS 1 tablet by mouth daily MELOXICAM 7.5 MG TABS 966828 MELOXICAM Inactive LOVASTATIN 20 MG TABS Take 1 tablet by mouth daily 201 02/12/20 LOVASTATIN 20 MG TABS 595428 LOVASTATIN Inactive DIFLUCAN 150 MG TABS 1 qd DIFLUCAN 150 MG T ABS 049796 FLUCONAZOLE Inactive VITAMIN D3 2000 UNIT TABS 1 daily, for vitamin D deficiency 2014 VITAMIN D3 2000 UNIT TABS CHOLECALCIFEROL Inacti ve AMOXICILLIN 500 MG CAPS 1 cap by mouth three times a day AMOXICILLIN 500 MG CAPS 307769 AMOXICILLIN Inactive BACTRIM DS 800-160 MG TAB 1 tab by mouth twice daily X 10 DAYS 2 BACTRIM DS 800-160 MG TAB 19830105 TRIMETHOPRIM-SULFAMETH OXAZOLE Inactive TRIMETHOPRIM 100 MG TABS 1/2 qd TRIMETHOPRI M 100 MG TABS 19830102 TRIMETHOPRIM Inactive CETIRIZINE HCL 5 MG TABS Take 1 tablet by mouth daily CETIRIZINE HCL 5 MG TABS 8970357 CETIRIZINE HCL Inactive PRAMIPEXOLE DIHYDROCHLORIDE 0.125 MG ORAL TABS take 1 tablet po qhs for restless leg syndrome. PRAMIPEXOLE DIHYDROC HLORIDE 0.125 MG ORAL TABS 648761 PRAMIPEXOLE DIHYDROCHLORIDE Inactive MIRTAZAPINE 15 MG ORAL TABS 1/2 tab by mouth at bedtime. MIRTAZAPINE 15 MG ORAL TABS 019211 MIRTAZAPINE Inactive DIFLUCAN 100 MG TAB 1 tablet by mouth daily X 3 DAYS 2 DIFLUCAN 100 MG TAB 596899 FLUCONAZOLE Inactive DIFLUCAN 100 MG TABS 1 tablet by mouth every other day for 2 dos es DIFLUCAN 100 MG TABS 544667 FLUCONAZOLE Inactive CEFTIN 250 MG TAB 1 tablet twice daily x 7 days 11/19 CEFTIN 250 MG TAB 696323 CEFUROXIME AXETIL Inactive BACTRIM DS 800-160 MG TAB 1 tab by mouth twice daily 2 BACTRIM DS 800-160 MG TAB 19830105 TRIMETHOPRIM-SULFAMETHOXAZOLE Inac tive ZITHROMAX 250 MG TAB 2 po today, then 1 po q days 2-5 ZITHROMAX 250 MG TAB 1966684 AZITHROMYCIN Inactive BACTRIM DS 800-160 MG TAB 1 tab by mouth twice daily 2 BACTRIM DS 800-160 MG TAB 19830105 TRIMETHOPRIM-SULFAMETHOXAZOLE Inac tive BACTRIM DS 800-160 MG TAB 1 tab by mouth twice daily 2 BACTRIM DS 800-160 MG TAB 19830105 TRIMETHOPRIM-SULFAMETHOXAZOLE Inac tive BACTRIM DS 800-160 MG TAB 1 tab by mouth twice daily 2 BACTRIM DS 800-160 MG TAB 357584 TRIMETHOPRIM-SULFAMETHOXAZOLE Inac tive DIFLUCAN 150 MG TAB 1 tablet by mouth daily DIFLUCAN 150 MG TAB 116330 FLUCONAZOLE Inactive Advance Directives Directive Description Start Date PERMISSION TO SHARE DISCUSSED WITH PATIENT -- NO DECISION MADE Vital Signs Date Name Value Unit Range Description blood pressure, diastolic - 8462-4 88 mm[Hg] [...] mg/dL Encounters Code Encounter Date Provider Facility CPT-39781 Level 4 Est. Patient 18:13:07 HYDROGRAPHIC ENGINEER Tesfaye pearson MD [facility] CPT-55607 Level 3 Est. Patient 10:46:32 CDT Rj cotto DO [facility] CPT-41880 Level 4 Est. Patient 20:19:25 CDT Tesfaye pearson MD [facility] CPT-85101 Level 3 Est. Patient 09:07:31 CDT Tesfaye pearson MD [facility] CPT-98807 Level 4 Est. Patient 13:12:56 CDT Tesfaye pearson MD [facility] CPT-19842 Level 4 Est. Patient 21:24:55 HYDROGRAPHIC ENGINEER Tesfaye pearson MD [facility] CPT-53639 Level 3 Est. Patient 13:45:04 HYDROGRAPHIC ENGINEER Tesfaye pearson MD 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 CPT-27909 Level 4 Est. Patient 13:50:45 CDT Tesfaye pearson MD [facility] CPT-45231 Level 3 Est. Patient 10:16:10 CDT Tesfaye pearson MD [facility] CPT-32481 Level 3 Est. Patient 16:36:07 HYDROGRAPHIC ENGINEER Kayla jameson MD [facility] CPT-00444 Level 4 Est. Patient 16:00:14 HYDROGRAPHIC ENGINEER Tesfaye pearson MD [facility]-34523 Level 4 Est. Patient 11:02:24 HYDROGRAPHIC ENGINEER Tesfaye pearson MD [facility]-88582 Level 3 Est. Patient 20:21:43 HYDROGRAPHIC ENGINEER Kayla jameson MD [facility]-41468 Level 3 Est. Patient 13:27:28 HYDROGRAPHIC ENGINEER Kayla jameson MD [facility]-02768 Level 4 Est. Patient 15:57:17 HYDROGRAPHIC ENGINEER Tesfaye pearson MD [facility] CPT-21219 Level 3 New Patient 13:25:47 CDT Tesfaye kidd MD [facility] CPT-48678 Level 3 New Patient 17:22:21 CDT Kayla angel MD [facility] Procedures Code Procedure Name Date Entry Date Standard Desc ription CPT-G0438 Initial Annual Wellness Exam 11:23:17 CD T CPT-J2930 Solu Medrol 125 mg (Methyl Prednisolone Sodium Succinate) 17:29:12 HYDROGRAPHIC ENGINEER CPT-22463 Abx/Therapy Injection 17:29:11 HYDROGRAPHIC ENGINEER CPT-J2930 Solu Medrol 125 mg (Methyl Prednisolone Sodium Succinate) 12:34:38 HYDROGRAPHIC ENGINEER CPT-J3420 Vitamin B12 1000mcg (Cyanocobalamin) 09:12:55 CDT CPT-J3420 Vitamin B12 1000mcg (Cyanocobalamin) 16:28:06 HYDROGRAPHIC ENGINEER CPT-48185 Venipuncture Draw Fee 08:39:53 CDT CPT-J3420 Vitamin B12 1000mcg (Cyanocobalamin) 08:46:22 CDT CPT-44175 Abx/Therapy Injection 08:46:22 CDT CPT-J3420 Vitamin B12 1000mcg (Cyanocobalamin) 08:41:26 CDT CPT-35386 Abx/Therapy Injection 08:41:26 CDT CPT-J3420 Vitamin B12 1000mcg (Cyanocobalamin) 08:57:15 CDT CPT-31103 Abx/Therapy Injection 08:57:15 CDT CPT-J3420 Vitamin B12 1000mcg (Cyanocobalamin) 10:59:03 CDT CPT-55273 Abx/Therapy Injection 10:59:03 CDT CPT-J3420 Vitamin B12 1000mcg (Cyanocobalamin) 15:05:39 CDT CPT-52043 Abx/Therapy Injection 15:05:39 CDT CPT-J3420 Vitamin B12 1000mcg (Cyanocobalamin) 13:50:45 CDT CPT-J3420 Vitamin B12 1000mcg (Cyanocobalamin) 08:48:55 CDT CPT-21185 Abx/Therapy Injection 08:48:55 CDT CPT-J3420 Vitamin B12 1000mcg (Cyanocobalamin) 09:14:54 CDT CPT-73896 Abx/Therapy Injection 09:14:54 CDT CPT-J3420 Vitamin B12 1000mcg (Cyanocobalamin) 09:06:06 CDT CPT-10567 Abx/Therapy Injection 09:06:06 CDT CPT-J3420 Vitamin B12 1000mcg (Cyanocobalamin) 09:49:14 CDT CPT-83245 Abx/Therapy Injection 09:49:14 CDT CPT-J3420 Vitamin B12 1000mcg (Cyanocobalamin) 09:10:30 HYDROGRAPHIC ENGINEER CPT-47650 Abx/Therapy Injection 09:10:30 HYDROGRAPHIC ENGINEER CPT-J3420 Vitamin B12 1000mcg (Cyanocobalamin) 09:11:07 HYDROGRAPHIC ENGINEER CPT-68175 Abx/Therapy Injection 09:11:07 HYDROGRAPHIC ENGINEER CPT-J3420 Vitamin B12 1000mcg (Cyanocobalamin) 09:57:03 HYDROGRAPHIC ENGINEER CPT-75789 Abx/Therapy Injection 09:57:03 HYDROGRAPHIC ENGINEER CPT-J3420 Vitamin B12 1000mcg (Cyanocobalamin) 09:23:21 HYDROGRAPHIC ENGINEER CPT-41652 Abx/Therapy Injection 09:23:21 HYDROGRAPHIC ENGINEER CPT-05123 Urine Dip (Floor Use Only) 20:21:44 HYDROGRAPHIC ENGINEER 201 02/12/11 CPT-29385 UA Dip Auto (Floor Use Only) 10:04:39 HYDROGRAPHIC ENGINEER 2 CPT-45808 Urine Dip (Floor Use Only) 13:27:28 HYDROGRAPHIC ENGINEER 201 02/12/01 CPT-59691 Bladder Scan 13:27:28 HYDROGRAPHIC ENGINEER CPT-06539 Abd single AP View 14:30:51 HYDROGRAPHIC ENGINEER CPT-OV Office Visit 10:15:43 CDT CPT-29485 Urine Dip (Floor Use Only) 17:22:21 CDT 201 02/09/02 CPT-61948 Bladder Scan 17:22:21 CDT
--- OUTSIDE RECORDS SUMMARY | 2020-05-05 12:12 | XMS REPORT | Clinical Summary ---
Author Author Jeri Hanley Organization [employer] Address Unknown Phone Unavailable Allergies, Adverse Reactions, [...] 1 tablet by mouth daily FLU CONAZOLE [id number] No Longer Active Tesfaye Sherman MD Active BACTRIM DS 800-160 MG TAB 1 tab by mouth twice daily 2 TRIMETHOPRIM-SULFAMETHOXAZOLE 63463117157 No Longer Active Tesfaye Sherman MD Active ROPINIROLE HCL 0.25 MG ORAL TABS 1 TAB PO Q HS ROPINIROLE HCL 14088733828 Active Tesfaye Sherman MD Active CYMBALTA 30 MG CPEP 1 cap by mouth daily with 60mg DULOXETINE HCL 02929987887 Active Tesfaye Sherman MD Active CEFTIN 250 MG TAB 1 tablet twice daily x 7 days 11/19 CEFUROXIME AXETIL 63714311621 No Longer Active Tesfaye Sherman MD Acti ve DIFLUCAN 100 MG TABS 1 tablet by mouth every other day for 2 dos es FLUCONAZOLE 95307685384 No Longer Active Tesfaye Sherman MD Active DIFLUCAN 100 MG TAB 1 tablet by mouth daily X 3 DAYS 2 FLUCONAZOLE 88587642671 No Longer Active Rj Moss DO Active MIRTAZAPINE 15 MG ORAL TABS 1/2 tab by mouth at bedtime. MIRTAZAPINE 07730540936 No Longer Active Tesfaye Sherman MD Acti ve BACTRIM DS 800-160 MG TAB 1 tab by mouth twice daily 2 TRIMETHOPRIM-SULFAMETHOXAZOLE 06860413182 No Longer Active Tesfaye Sherman MD Active PRAMIPEXOLE DIHYDROCHLORIDE 0.125 MG ORAL TABS take 1 tablet po qhs for restless leg syndrome. PRAMIPEXOLE DIHYDROCHLORIDE 72871036260 No Longer Active Tesfaye Sherman MD Active MAGNESIUM 400 MG ORAL TABS 1 tab po [facility] 10[facility] Active Chelsea Barba APRN Active SUDAFED 24 HOUR 240 MG ORAL [id number] 1 tab po daily PSEUDOEPHEDRINE HCL 12912012877 Active Chelsea Barba APRN A ctive CETIRIZINE HCL 5 MG TABS Take 1 tablet by mouth daily CETIRIZINE HCL 93091464987 No Longer Active Chelsea Barba APRN Acti ve TRIMETHOPRIM 100 MG TABS 1/2 qd TRIMETHOPRIM 85606799325 No Longer Active Chelsea Barba APRN Active BACTRIM DS 800-160 MG TAB 1 tab by mouth twice daily 2 TRIMETHOPRIM-SULFAMETHOXAZOLE 85032576705 No Longer Active Tesfaye Sherman MD Active BACTRIM DS 800-160 MG TAB 1 tab by mouth twice daily X 10 DAYS 2 TRIMETHOPRIM-SULFAMETHOXAZOLE 63998677302 No Longer Active Umer Sherman MD Active AMOXICILLIN 500 MG CAPS 1 cap by mouth three times a day AMOXICILLIN 83381631672 No Longer Active Adriana Arredondo Active MECLIZINE HCL 25 MG TAB one tab po qday prn dizziness MECLIZINE HCL 28854008889 Active Tesfaye Sherman MD Active B-12 1000 MCG ORAL LOZG 1 tab po daily CYANOCOBAL STANTON 32607542905 Active Tesfaye Sherman MD Active VITAMIN D3 2000 UNIT TABS 1 daily, for vitamin D deficiency 2014 CHOLECALCIFEROL 57382761941 No Longer Active Tesfaye Sherman MD Active TIZANIDINE HCL 2 MG TABS take 1-2 tablet by mouth ev at bedtime at 9pm PRN TIZANIDINE HCL 94948862013 Active Tesfaye Owusu Active ZITHROMAX 250 MG TAB 2 po today, then 1 po q days 2-5 AZITHROMYCIN 37073308909 No Longer Active Tesfaye Sherman MD Acti ve BACTRIM DS 800-160 MG TAB 1 tab by mouth twice daily 2 TRIMETHOPRIM-SULFAMETHOXAZOLE 54705909189 No Longer Active Tesfaye Sherman MD Active PRELIEF 340 (65-50) MG (CA-P) ORAL TABS CALCIUM GLYCEROPHOSPHATE 83156360301 Active Tesfaye Sherman MD Active [facility] NIACIN FLUSH FREE 400-100 MG CAPS 1 daily NIACIN-INOSITOL 15980595404 Active Kayla Cooper MD Active DIFLUCAN 150 MG TABS 1 qd FLUCONAZOLE 69115 058122 No Longer Active Kayla Cooper MD Active FLUTICASONE PROPIONATE 50 MCG/ACT SUSP 1 spray each nostril twice daily FLUTICASONE PROPIONATE 67534148093 Active Tesfaye armenta MD Active LOVASTATIN 20 MG TABS Take 1 tablet by mouth daily LOVASTATIN 65159431388 No Longer Active Tesfaye Sherman MD Active MELOXICAM 7.5 MG TABS 1 tablet by mouth daily M ELOXICAM 59472438056 No Longer Active Tesfaye Sherman MD Active GABAPENTIN 300 MG CAPS Take two tablets by mouth every evening GABAPENTIN 79161948623 No Longer Active Edith Burch MD Active OXYCODONE-ACETAMINOPHEN 5-325 MG TABS Take one tablet by mouth every 6 hours as needed. Max 12 tabs/day as needed OXYCODONE-ACETAMINOP HEN 67606223462 Active Tesfaye Sherman MD Active CYMBALTA 60 MG CPEP Take 1 tablet by mouth daily D ULOXETINE HCL 19105789951 Active Kayla Cooper MD Active CLONAZEPAM 0.5 MG TABS Take one tablet in the morning and 1.5 table t at 7pm CLONAZEPAM 77421320418 Active Kayla Cooper MD Active BACLOFEN 10 MG TABS Take one tablet by mouth three times a day BACLOFEN 96192329611 Active Kayla Cooper MD Active GABAPENTIN 300 MG CAPS Take two tablets by mouth every evening GABAPENTIN 300 MG CAPS 544634 GABAPENTIN Inactive MELOXICAM 7.5 MG TABS 1 tablet by mouth daily MELOXICAM 7.5 MG TABS 838617 MELOXICAM Inactive LOVASTATIN 20 MG TABS Take 1 tablet by mouth daily 201 02/12/20 LOVASTATIN 20 MG TABS 649514 LOVASTATIN Inactive DIFLUCAN 150 MG TABS 1 qd DIFLUCAN 150 MG T ABS 757577 FLUCONAZOLE Inactive VITAMIN D3 2000 UNIT TABS 1 daily, for vitamin D deficiency 2014 VITAMIN D3 2000 UNIT TABS CHOLECALCIFEROL Inacti ve AMOXICILLIN 500 MG CAPS 1 cap by mouth three times a day AMOXICILLIN 500 MG CAPS 240985 AMOXICILLIN Inactive BACTRIM DS 800-160 MG TAB 1 tab by mouth twice daily X 10 DAYS 2 BACTRIM DS 800-160 MG TAB 19830105 TRIMETHOPRIM-SULFAMETH OXAZOLE Inactive TRIMETHOPRIM 100 MG TABS 1/2 qd TRIMETHOPRI M 100 MG TABS 19830102 TRIMETHOPRIM Inactive CETIRIZINE HCL 5 MG TABS Take 1 tablet by mouth daily CETIRIZINE HCL 5 MG TABS 8259486 CETIRIZINE HCL Inactive PRAMIPEXOLE DIHYDROCHLORIDE 0.125 MG ORAL TABS take 1 tablet po qhs for restless leg syndrome. PRAMIPEXOLE DIHYDROC HLORIDE 0.125 MG ORAL TABS 564367 PRAMIPEXOLE DIHYDROCHLORIDE Inactive MIRTAZAPINE 15 MG ORAL TABS 1/2 tab by mouth at bedtime. MIRTAZAPINE 15 MG ORAL TABS 913241 MIRTAZAPINE Inactive DIFLUCAN 100 MG TAB 1 tablet by mouth daily X 3 DAYS 2 DIFLUCAN 100 MG TAB 749811 FLUCONAZOLE Inactive DIFLUCAN 100 MG TABS 1 tablet by mouth every other day for 2 dos es DIFLUCAN 100 MG TABS 168801 FLUCONAZOLE Inactive CEFTIN 250 MG TAB 1 tablet twice daily x 7 days 11/19 CEFTIN 250 MG TAB 710147 CEFUROXIME AXETIL Inactive BACTRIM DS 800-160 MG TAB 1 tab by mouth twice daily 2 BACTRIM DS 800-160 MG TAB 19830105 TRIMETHOPRIM-SULFAMETHOXAZOLE Inac tive ZITHROMAX 250 MG TAB 2 po today, then 1 po q days 2-5 ZITHROMAX 250 MG TAB 0549636 AZITHROMYCIN Inactive BACTRIM DS 800-160 MG TAB 1 tab by mouth twice daily 2 BACTRIM DS 800-160 MG TAB 19830105 TRIMETHOPRIM-SULFAMETHOXAZOLE Inac tive BACTRIM DS 800-160 MG TAB 1 tab by mouth twice daily 2 BACTRIM DS 800-160 MG TAB 19830105 TRIMETHOPRIM-SULFAMETHOXAZOLE Inac tive BACTRIM DS 800-160 MG TAB 1 tab by mouth twice daily 2 BACTRIM DS 800-160 MG TAB 139238 TRIMETHOPRIM-SULFAMETHOXAZOLE Inac tive DIFLUCAN 150 MG TAB 1 tablet by mouth daily DIFLUCAN 150 MG TAB 058738 FLUCONAZOLE Inactive Advance Directives Directive Description Start [...] mg/dL Encounters Code Encounter Date Provider Facility CPT-52469 Level 4 Est. Patient 18:13:07 [employer] Tesfaye pearson MD [facility] CPT-86750 Level 3 Est. Patient 10:46:32 CDT Rj cotto DO [facility] CPT-34862 Level 4 Est. Patient 20:19:25 CDT Tesfaye pearson MD [facility] CPT-58007 Level 3 Est. Patient 09:07:31 CDT Tesfaye pearson MD [facility] CPT-07654 Level 4 Est. Patient 13:12:56 CDT Tesfaye pearson MD [facility] CPT-29006 Level 4 Est. Patient 21:24:55 [employer]PER[employer] Tesfaye pearson MD [facility] CPT-54692 Level 3 Est. Patient 13:45:04 [employer] SUPERVISOR Tesfaye pearson MD [facility] CPT-45023 Level 4 Est. Patient 13:50:45 CDT Tesfaye pearson MD [facility] CPT-77779 Level 3 Est. Patient 10:16:10 CDT Tesfaye pearson MD [facility] CPT-77602 Level 3 Est. Patient 16:36:07 [employer]PER[employer] Kayla jameson MD [facility] CPT-86882 Level 4 Est. Patient 16:00:14 [employer] SUPER[employer]OR Tesfaye pearson MD [facility]-48222 Level 4 Est. Patient 11:02:24 [employer] SUPERVISOR Tesfaye pearson MD [facility]-06098 Level 3 Est. Patient 20:21:43 [employer] SUPER[employer]OR Kayla jameson MD [facility]-02890 Level 3 Est. Patient 13:27:28 [employer] SUPERVISOR Kayla jameson MD [facility]-09971 Level 4 Est. Patient 15:57:17 [employer] SUPER[employer]OR Tesfaye pearson MD [facility] CPT-85549 Level 3 New Patient 13:25:47 CDT Tesfaye kidd MD [facility] CPT-48703 Level 3 New Patient 17:22:21 CDT Kayla angel MD [facility] Procedures Code Procedure Name Date Entry Date Standard Desc ription CPT-G0438 Initial Annual Wellness Exam 11:23:17 CD T CPT-J2930 Solu Medrol 125 mg (Methyl Prednisolone Sodium Succinate) 17:29:12 [employer] CPT-49420 Abx/Therapy Injection 17:29:11 [employer] CPT-J2930 Solu Medrol 125 mg (Methyl Prednisolone Sodium Succinate) 12:34:38 [employer]PER[employer] CPT-J3420 Vitamin B12 1000mcg (Cyanocobalamin) 09:12:55 CDT CPT-J3420 Vitamin B12 1000mcg (Cyanocobalamin) 16:28:06 [employer]PER[employer] CPT-93901 Venipuncture Draw Fee 08:39:53 CDT CPT-J3420 Vitamin B12 1000mcg (Cyanocobalamin) 08:46:22 CDT CPT-57603 Abx/Therapy Injection 08:46:22 CDT CPT-J3420 Vitamin B12 1000mcg (Cyanocobalamin) 08:41:26 CDT CPT-74590 Abx/Therapy Injection 08:41:26 CDT CPT-J3420 Vitamin B12 1000mcg (Cyanocobalamin) 08:57:15 CDT CPT-10903 Abx/Therapy Injection 08:57:15 CDT CPT-J3420 Vitamin B12 1000mcg (Cyanocobalamin) 10:59:03 CDT CPT-55146 Abx/Therapy Injection 10:59:03 CDT CPT-J3420 Vitamin B12 1000mcg (Cyanocobalamin) 15:05:39 CDT CPT-32258 Abx/Therapy Injection 15:05:39 CDT CPT-J3420 Vitamin B12 1000mcg (Cyanocobalamin) 13:50:45 CDT CPT-J3420 Vitamin B12 1000mcg (Cyanocobalamin) 08:48:55 CDT CPT-48351 Abx/Therapy Injection 08:48:55 CDT CPT-J3420 Vitamin B12 1000mcg (Cyanocobalamin) 09:14:54 CDT CPT-90892 Abx/Therapy Injection 09:14:54 CDT CPT-J3420 Vitamin B12 1000mcg (Cyanocobalamin) 09:06:06 CDT CPT-26706 Abx/Therapy Injection 09:06:06 CDT CPT-J3420 Vitamin B12 1000mcg (Cyanocobalamin) 09:49:14 CDT CPT-11586 Abx/Therapy Injection 09:49:14 CDT CPT-J3420 Vitamin B12 1000mcg (Cyanocobalamin) 09:10:30 [employer]PER[employer] CPT-21959 Abx/Therapy Injection 09:10:30 [employer] SUPER[employer]OR CPT-J3420 Vitamin B12 1000mcg (Cyanocobalamin) 09:11:07 [employer] SUPER[employer]OR CPT-54790 Abx/Therapy Injection 09:11:07 [employer] SUPER[employer] CPT-J3420 Vitamin B12 1000mcg (Cyanocobalamin) 09:57:03 [employer] SUPER[employer] CPT-24595 Abx/Therapy Injection 09:57:03 [employer] SUPER[employer]OR CPT-J3420 Vitamin B12 1000mcg (Cyanocobalamin) 09:23:21 [employer]PER[employer] CPT-82417 Abx/Therapy Injection 09:23:21 [employer]PER[employer] CPT-21723 Urine Dip (Floor Use Only) 20:21:44 [employer]PER[employer]OR 201 02/12/11 CPT-35218 UA Dip Auto (Floor Use Only) 10:04:39 [employer] SUPER[employer]OR 2 CPT-61579 Urine Dip (Floor Use Only) 13:27:28 [employer]PER[employer]OR 201 02/12/01 CPT-50412 Bladder Scan 13:27:28 [employer]PER[employer] CPT-76965 Abd single AP View 14:30:51 [employer]PER[employer] CPT-OV Office Visit 10:15:43 CDT CPT-97558 Urine Dip (Floor Use Only) 17:22:21 CDT 201 02/09/02 CPT-53976 Bladder Scan 17:22:21 CDT
--- OUTSIDE RECORDS SUMMARY | 2020-05-05 12:12 | XMS REPORT | Clinical Summary ---
Author Author Talon, Jeri Wood Organization [employer] Address Unknown Phone Unavailable Allergies, Adverse Reactions, [...] every other day for 2 doses FLUCONAZOLE 36190233845 Active Rj Moss DO Active CEFTIN 250 MG TAB 1 tablet twice daily x 7 days CEFUROXIME AXETIL 83230520541 Active Rj Moss DO Active DIFLUCAN 100 MG TAB 1 tablet by mouth daily X 3 DAYS 2 FLUCONAZOLE 93831353208 No Longer Active Rj Moss DO Active MIRTAZAPINE 15 MG ORAL TABS 1/2 tab by mouth at bedtime. MIRTAZAPINE 30911266835 No Longer Active Tesfaye Sherman MD Acti ve BACTRIM DS 800-160 MG TAB 1 tab by mouth twice daily 2 TRIMETHOPRIM-SULFAMETHOXAZOLE 06455798676 No Longer Active Tesfaye Sherman MD Active PRAMIPEXOLE DIHYDROCHLORIDE 0.125 MG ORAL TABS take 1 tablet po qhs for restless leg syndrome. PRAMIPEXOLE DIHYDROCHLORIDE 18986615425 No Longer Active Tesfaye Sherman MD Active MAGNESIUM 400 MG ORAL TABS 1 tab po daily MAGNESI UM 95935648696 Active Chelsea Barba APRN Active SUDAFED 24 HOUR 240 MG ORAL [id number] 1 tab po daily PSEUDOEPHEDRINE HCL 83485807661 Active Chelsea Barba APRN A ctive CETIRIZINE HCL 5 MG TABS Take 1 tablet by mouth daily CETIRIZINE HCL 84160810339 No Longer Active Chelsea Barba APRN Acti ve TRIMETHOPRIM 100 MG TABS 1/2 qd TRIMETHOPRIM 42736178847 No Longer Active Chelsea Barba APRN Active BACTRIM DS 800-160 MG TAB 1 tab by mouth twice daily 2 TRIMETHOPRIM-SULFAMETHOXAZOLE 84426041024 No Longer Active Tesfaye Sherman MD Active BACTRIM DS 800-160 MG TAB 1 tab by mouth twice daily X 10 DAYS 2 TRIMETHOPRIM-SULFAMETHOXAZOLE 37834525488 No Longer Active Umer Sherman MD Active AMOXICILLIN 500 MG CAPS 1 cap by mouth three times a day AMOXICILLIN 40598826259 No Longer Active Adriana Arredondo Active MECLIZINE HCL 25 MG TAB one tab po qday prn dizziness MECLIZINE HCL 59530381185 Active Tesfaye Sherman MD Active B-12 1000 MCG ORAL LOZG 1 tab po daily CYANOCOBAL STANTON 18836663404 Active Tesfaye Sherman MD Active VITAMIN D3 2000 UNIT TABS 1 daily, for vitamin D deficiency 2014 CHOLECALCIFEROL 37583133351 No Longer Active Tesfaye Sherman MD Active TIZANIDINE HCL 2 MG TABS take 1-2 tablet by mouth ev [place] day at bedtime at 9pm PRN TIZANIDINE HCL 85915122384 Active Tesfaye Owusu Active ZITHROMAX 250 MG TAB 2 po today, then 1 po q days 2-5 AZITHROMYCIN 51577394154 No Longer Active Tesfaye Sherman MD Acti ve BACTRIM DS 800-160 MG TAB 1 tab by mouth twice daily 2 TRIMETHOPRIM-SULFAMETHOXAZOLE 22840592719 No Longer Active Tesfaye Sherman MD Active PRELIEF 340 (65-50) MG (CA-P) ORAL TABS CALCIUM GLYCEROPHOSPHATE 47440532013 Active Tesfaye Sherman MD Active [facility] NIACIN FLUSH FREE 400-100 MG CAPS 1 daily NIACIN-INOSITOL 43201646686 Active Kayla Cooper MD Active DIFLUCAN 150 MG TABS 1 qd FLUCONAZOLE 08398 853545 No Longer Active Kayla Cooper MD Active FLUTICASONE PROPIONATE 50 MCG/ACT SUSP 1 spray each nostril twice daily FLUTICASONE PROPIONATE 97392847678 Active Tesfaye armenta MD Active LOVASTATIN 20 MG TABS Take 1 tablet by mouth daily LOVASTATIN 31995963737 No Longer Active Tesfaye Sherman MD Active MELOXICAM 7.5 MG TABS 1 tablet by mouth daily M ELOXICAM 39829534135 No Longer Active Tesfaye Sherman MD Active GABAPENTIN 300 MG CAPS Take two tablets by mouth every evening GABAPENTIN 28627218619 No Longer Active Edith Burch MD Active OXYCODONE-ACETAMINOPHEN 5-325 MG TABS Take one tablet by mouth every 6 hours as needed. Max 12 tabs/day as needed OXYCODONE-ACETAMINOP HEN 01574467291 Active Tesfaye Sherman MD Active CYMBALTA 60 MG CPEP Take 1 tablet by mouth daily D ULOXETINE HCL 78513048267 Active Kayla Cooper MD Active CLONAZEPAM 0.5 MG TABS Take one tablet in the morning and 1.5 table t at 7pm CLONAZEPAM 98830965384 Active Kayla Cooper MD Active BACLOFEN 10 MG TABS Take one tablet by mouth three times a day BACLOFEN 51138544985 Active Kayla Cooper MD Active GABAPENTIN 300 MG CAPS Take two tablets by mouth every evening GABAPENTIN 300 MG CAPS 046483 GABAPENTIN Inactive MELOXICAM 7.5 MG TABS 1 tablet by mouth daily MELOXICAM 7.5 MG TABS 101690 MELOXICAM Inactive LOVASTATIN 20 MG TABS Take 1 tablet by mouth daily 201 02/12/20 LOVASTATIN 20 MG TABS 533748 LOVASTATIN Inactive DIFLUCAN 150 MG TABS 1 qd DIFLUCAN 150 MG T ABS 501259 FLUCONAZOLE Inactive VITAMIN D3 2000 UNIT TABS 1 daily, for vitamin D deficiency 2014 VITAMIN D3 2000 UNIT TABS CHOLECALCIFEROL Inacti ve AMOXICILLIN 500 MG CAPS 1 cap by mouth three times a day AMOXICILLIN 500 MG CAPS 830472 AMOXICILLIN Inactive BACTRIM DS 800-160 MG TAB 1 tab by mouth twice daily X 10 DAYS 2 BACTRIM DS 800-160 MG TAB 19830105 TRIMETHOPRIM-SULFAMETH OXAZOLE Inactive TRIMETHOPRIM 100 MG TABS 1/2 qd TRIMETHOPRI M 100 MG TABS 218729 TRIMETHOPRIM Inactive CETIRIZINE HCL 5 MG TABS Take 1 tablet by mouth daily CETIRIZINE HCL 5 MG TABS 2058334 CETIRIZINE HCL Inactive PRAMIPEXOLE DIHYDROCHLORIDE 0.125 MG ORAL TABS take 1 tablet po qhs for restless leg syndrome. PRAMIPEXOLE DIHYDROC HLORIDE 0.125 MG ORAL TABS 127964 PRAMIPEXOLE DIHYDROCHLORIDE Inactive MIRTAZAPINE 15 MG ORAL TABS 1/2 tab by mouth at bedtime. MIRTAZAPINE 15 MG ORAL TABS 915007 MIRTAZAPINE Inactive DIFLUCAN 100 MG TAB 1 tablet by mouth daily X 3 DAYS 2 DIFLUCAN 100 MG TAB 882431 FLUCONAZOLE Inactive BACTRIM DS 800-160 MG TAB 1 tab by mouth twice daily 2 BACTRIM DS 800-160 MG TAB 483785 TRIMETHOPRIM-SULFAMETHOXAZOLE Inac tive ZITHROMAX 250 MG TAB 2 po today, then 1 po q days 2-5 ZITHROMAX 250 MG TAB 1124318 AZITHROMYCIN Inactive BACTRIM DS 800-160 MG TAB [...] mg/dL Encounters Code Encounter Date Provider Facility CPT-46698 Level 3 Est. Patient 10:46:32 CDT Rj cotto DO [facility] CPT-73794 Level 4 Est. Patient 20:19:25 CDT Tesfaye pearson MD [facility] CPT-72306 Level 3 Est. Patient 09:07:31 CDT Tesfaye pearson MD [facility]-71880 Level 4 Est. Patient 13:12:56 CDT Tesfaye pearson MD [facility]-16225 Level 4 Est. Patient 21:24:55 [employer]PERATOR HELPER Tesfaye pearson MD [facility]-91062 Level 3 Est. Patient 13:45:04 [employer] OPERATOR HELPER Tesfaye pearson MD [facility] CPT-01705 Level 4 Est. Patient 13:50:45 CDT Tesfaye pearson MD [facility] CPT-87737 Level 3 Est. Patient 10:16:10 CDT Tesfaye pearson MD [facility] [place]-[address]259 Level 3 Est. 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 Patient 16:00:14 [employer]ACHINE OPERATOR HELPER Tesfaye pearson MD [facility]-32998 Level 4 Est. Patient 11:02:24 [employer]ACHINE OPERATOR HELPER Tesfaye pearson MD [facility]-28034 Level 3 Est. Patient 20:21:43 [employer] OPERATOR HELPER Kayla jameson MD [facility]-55380 Level 3 Est. Patient 13:27:28 [employer]ACHINE OPERATOR HELPER Kayla jameson MD [facility]-06256 Level 4 Est. Patient 15:57:17 [employer]ACHINE OPERATOR HELPER Tesfaye pearson MD [facility] CPT-37295 Level 3 New Patient 13:25:47 CDT Tesfaye kidd MD [facility] CPT-03123 Level 3 New Patient 17:22:21 CDT Kayla angel MD [facility] Procedures Code Procedure Name Date Entry Date Standard Desc ription CPT-G0438 Initial Annual Wellness Exam 11:23:17 CD T CPT-J2930 Solu Medrol 125 mg (Methyl Prednisolone Sodium Succinate) 17:29:12 [employer] OPERATOR HELPER CPT-78006 Abx/Therapy Injection 17:29:11 [employer]ACHINE OPERATOR HELPER CPT-J2930 Solu Medrol 125 mg (Methyl Prednisolone Sodium Succinate) 12:34:38 [employer] MACHINE OPERATOR HELPER CPT-J3420 Vitamin B12 1000mcg (Cyanocobalamin) 09:12:55 CDT CPT-J3420 Vitamin B12 1000mcg (Cyanocobalamin) 16:28:06 [employer] MACHINE OPERATOR HELPER CPT-35700 Venipuncture Draw Fee 08:39:53 CDT CPT-J3420 Vitamin B12 1000mcg (Cyanocobalamin) 08:46:22 CDT CPT-79720 Abx/Therapy Injection 08:46:22 CDT CPT-J3420 Vitamin B12 1000mcg (Cyanocobalamin) 08:41:26 CDT CPT-29345 Abx/Therapy Injection 08:41:26 CDT CPT-J3420 Vitamin B12 1000mcg (Cyanocobalamin) 08:57:15 CDT CPT-10406 Abx/Therapy Injection 08:57:15 CDT CPT-J3420 Vitamin B12 1000mcg (Cyanocobalamin) 10:59:03 CDT CPT-02820 Abx/Therapy Injection 10:59:03 CDT CPT-J3420 Vitamin B12 1000mcg (Cyanocobalamin) 15:05:39 CDT CPT-87053 Abx/Therapy Injection 15:05:39 CDT CPT-J3420 Vitamin B12 1000mcg (Cyanocobalamin) 13:50:45 CDT CPT-J3420 Vitamin B12 1000mcg (Cyanocobalamin) 08:48:55 CDT CPT-95122 Abx/Therapy Injection 08:48:55 CDT CPT-J3420 Vitamin B12 1000mcg (Cyanocobalamin) 09:14:54 CDT CPT-80184 Abx/Therapy Injection 09:14:54 CDT CPT-J3420 Vitamin B12 1000mcg (Cyanocobalamin) 09:06:06 CDT CPT-37436 Abx/Therapy Injection 09:06:06 CDT CPT-J3420 Vitamin B12 1000mcg (Cyanocobalamin) 09:49:14 CDT CPT-39312 Abx/Therapy Injection 09:49:14 CDT CPT-J3420 Vitamin B12 1000mcg (Cyanocobalamin) 09:10:30 [employer]INE OPERATOR HELPER CPT-97219 Abx/Therapy Injection 09:10:30 BI[employer] MACHINE OPERATOR HELPER CPT-J3420 Vitamin B12 1000mcg (Cyanocobalamin) 09:11:07 [employer] MACHINE OPERATOR HELPER CPT-28795 Abx/Therapy Injection 09:11:07 BI[employer] MACHINE OPERATOR HELPER CPT-J3420 Vitamin B12 1000mcg (Cyanocobalamin) 09:57:03 BI[employer] MACHINE OPERATOR HELPER CPT-79500 Abx/Therapy Injection 09:57:03 BI[employer] MACHINE OPERATOR HELPER CPT-J3420 Vitamin B12 1000mcg (Cyanocobalamin) 09:23:21 BI[employer] MACHINE OPERATOR HELPER CPT-37091 Abx/Therapy Injection 09:23:21 BI[employer] MACHINE OPERATOR HELPER CPT-59517 Urine Dip (Floor Use Only) 20:21:44 [employer] MACHINE OPERATOR HELPER 201 02/12/11 CPT-14743 UA Dip Auto (Floor Use Only) 10:04:39 [employer] MACHINE OPERATOR HELPER 2 CPT-92122 Urine Dip (Floor Use Only) 13:27:28 [employer] MACHINE OPERATOR HELPER 201 02/12/01 CPT-77101 Bladder Scan 13:27:28 [employer]INE OPERATOR HELPER CPT-35493 Abd single AP View 14:30:51 [employer] MACHINE OPERATOR HELPER CPT-OV Office Visit 10:15:43 CDT CPT-64633 Urine Dip (Floor Use Only) 17:22:21 CDT 201 02/09/02 CPT-30465 Bladder Scan 17:22:21 CDT
--- OUTSIDE RECORDS SUMMARY | 2020-05-05 12:12 | XMS REPORT | Clinical Summary ---
Author Author Talon, Jeri Wood Organization [facility] Address Unknown Phone Unavailable Allergies, Adverse Reactions, [...] daily, for vitamin D deficiency 2014 CHOLECALCIFEROL [id number] No Longer Active Tesfaye Sherman MD Active TIZANIDINE HCL 2 MG TABS take 1-2 tablet by mouth at bedtime at 9pm PRN TIZANIDINE HCL 07998520304 Active Tesfaye Owusu Active ZITHROMAX 250 MG TAB 2 po today, then 1 po q days 2-5 AZITHROMYCIN 28398349675 No Longer Active Tesfaye Sherman MD Acti ve BACTRIM DS 800-160 MG TAB 1 tab by mouth twice daily 2 TRIMETHOPRIM-SULFAMETHOXAZOLE 55268637544 No Longer Active Tesfaye Sherman MD Active PRELIEF 340 (65-50) MG (CA-P) ORAL TABS CALCIUM GLYCEROPHOSPHATE 28472399935 Active Tesfaye Sherman MD Active [facility] NIACIN FLUSH FREE 400-100 MG CAPS 1 daily NIACIN-INOSITOL 50064922378 Active Kayla Cooper MD Active DIFLUCAN 150 MG TABS 1 qd FLUCONAZOLE 17699 615519 No Longer Active Kayla Cooper MD Active FLUTICASONE PROPIONATE 50 MCG/ACT SUSP 1 spray each nostril twice daily FLUTICASONE PROPIONATE 84551067564 Active Tesfaye armenta MD Active LOVASTATIN 20 MG TABS Take 1 tablet by mouth daily LOVASTATIN 20716739698 No Longer Active Tesfaye Sherman MD Active MELOXICAM 7.5 MG TABS 1 tablet by mouth daily M ELOXICAM 44099102458 No Longer Active Tesfaye Sherman MD Active GABAPENTIN 300 MG CAPS Take two tablets by mouth every evening GABAPENTIN 70178435492 No Longer Active Edith Burch MD Active TRIMETHOPRIM 100 MG TABS 1/2 qd TRIMETHOPRIM 7949287 3001 Active Kayla Cooper MD Active OXYCODONE-ACETAMINOPHEN 5-325 MG TABS Take one tablet by mouth every 6 hours as needed. Max 12 tabs/day as needed OXYCODONE-ACETAMINOP HEN 82899843100 Active Tesfaye Sherman MD Active CYMBALTA 60 MG CPEP Take 1 tablet by mouth daily D ULOXETINE HCL 85268195763 Active Kayla Cooper MD Active CLONAZEPAM 0.5 MG TABS Take one tablet in the morning and 1.5 table t at 7pm CLONAZEPAM 35557106979 Active Kayla Cooper MD Active CETIRIZINE HCL 5 MG TABS Take 1 tablet by mouth daily CETIRIZINE HCL 36034954076 Active Kayla Cooper MD Active BACLOFEN 10 MG TABS Take one tablet by mouth three times a day BACLOFEN 66144693619 Active Kayla Cooper MD Active GABAPENTIN 300 MG CAPS Take two tablets by mouth every evening GABAPENTIN 300 MG CAPS 948173 GABAPENTIN Inactive MELOXICAM 7.5 MG TABS 1 tablet by mouth daily MELOXICAM 7.5 MG TABS 438621 MELOXICAM Inactive LOVASTATIN 20 MG TABS Take 1 tablet by mouth daily 201 02/12/20 LOVASTATIN 20 MG TABS 477639 LOVASTATIN Inactive DIFLUCAN 150 MG TABS 1 qd DIFLUCAN 150 MG T ABS 635289 FLUCONAZOLE Inactive VITAMIN D3 2000 UNIT TABS 1 daily, for vitamin D deficiency 2014 VITAMIN D3 2000 UNIT TABS CHOLECALCIFEROL Inacti ve BACTRIM DS 800-160 MG TAB 1 tab by mouth twice daily 2 BACTRIM DS 800-160 MG TAB TRIMETHOPRIM-SULFAMETHOXAZOLE Inac tive ZITHROMAX 250 MG TAB 2 po today, then 1 po q days 2-5 ZITHROMAX 250 MG TAB 4663540 AZITHROMYCIN Inactive Advance Directives Directive Description Start [...] Panel - Chemistry sodium, serum 138 mmol/L 502-117 5082/10/20 potassium, serum 4.5 mmol/L 3.5-5.2 chloride, serum [...] 0.90 mg/dL 0.00-1.00 cholesterol, serum 237 mg/dL 895-794 0202/10/20 triglyceride, serum, fasting 71 mg/dL 30-200 HDL [...] Panel - Chemistry cholesterol, serum 221 mg/dL 711-284 4551/01/23 triglyceride, serum, fasting 81 mg/dL 30-200 HDL [...] negative Encounters Code Encounter Date Provider Facility CPT-89194 Level 4 Est. Patient 13:50:45 CDT Tesfaye pearson MD [facility] CPT-06517 Level 3 Est. Patient 10:16:10 CDT Tesfaye pearson MD [facility] CPT-65464 Level 3 Est. Patient 16:36:07 CODY jameson MD [facility] CPT-06456 Level 4 Est. Patient 16:00:14 GIS DEVELOPER Tesfaye pearson MD [facility] CPT-73326 Level 4 Est. Patient 11:02:24 GIS DEVELOPER Tesfaye pearson MD [facility] CPT-46343 Level 3 Est. Patient 20:21:43 GIS DEVELOPER Kayla jameson MD [facility] CPT-72150 Level 3 Est. Patient 13:27:28 GIS DEVELOPER Kayla jameson MD [facility] CPT-49094 Level 4 Est. Patient 15:57:17 GIS DEVELOPER Tesfaye pearson MD 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 CPT-26344 Level 3 New Patient 13:25:47 CDT Tesfaye kidd MD [facility] CPT-72965 Level 3 New Patient 17:22:21 CDT J John angel MD [facility] Procedures Code Procedure Name Date Entry Date Standard Desc ription CPT-J3420 Vitamin B12 1000mcg (Cyanocobalamin) 10:59:03 CDT CPT-46674 Abx/Therapy Injection 10:59:03 CDT CPT-J3420 Vitamin B12 1000mcg (Cyanocobalamin) 15:05:39 CDT CPT-50704 Abx/Therapy Injection 15:05:39 CDT CPT-J3420 Vitamin B12 1000mcg (Cyanocobalamin) 13:50:45 CDT CPT-J3420 Vitamin B12 1000mcg (Cyanocobalamin) 08:48:55 CDT CPT-63919 Abx/Therapy Injection 08:48:55 CDT CPT-J3420 Vitamin B12 1000mcg (Cyanocobalamin) 09:14:54 CDT CPT-58679 Abx/Therapy Injection 09:14:54 CDT CPT-J3420 Vitamin B12 1000mcg (Cyanocobalamin) 09:06:06 CDT CPT-33088 Abx/Therapy Injection 09:06:06 CDT CPT-J3420 Vitamin B12 1000mcg (Cyanocobalamin) 09:49:14 CDT CPT-88438 Abx/Therapy Injection 09:49:14 CDT CPT-J3420 Vitamin B12 1000mcg (Cyanocobalamin) 09:10:30 GIS DEVELOPER CPT-76927 Abx/Therapy Injection 09:10:30 GIS DEVELOPER CPT-J3420 Vitamin B12 1000mcg (Cyanocobalamin) 09:11:07 GIS DEVELOPER CPT-39067 Abx/Therapy Injection 09:11:07 GIS DEVELOPER CPT-J3420 Vitamin B12 1000mcg (Cyanocobalamin) 09:57:03 GIS DEVELOPER CPT-43824 Abx/Therapy Injection 09:57:03 GIS DEVELOPER CPT-J3420 Vitamin B12 1000mcg (Cyanocobalamin) 09:23:21 GIS DEVELOPER CPT-47053 Abx/Therapy Injection 09:23:21 GIS DEVELOPER CPT-82678 Urine Dip (Floor Use Only) 20:21:44 GIS DEVELOPER 201 02/12/11 CPT-27510 UA Dip Auto (Floor Use Only) 10:04:39 GIS DEVELOPER 2 CPT-18788 Urine Dip (Floor Use Only) 13:27:28 GIS DEVELOPER 201 02/12/01 CPT-77601 Bladder Scan 13:27:28 GIS DEVELOPER CPT-60213 Abd single AP View 14:30:51 GIS DEVELOPER CPT-OV Office Visit 10:15:43 CDT CPT-19416 Urine Dip (Floor Use Only) 17:22:21 CDT 201 02/09/02 CPT-68705 Bladder Scan 17:22:21 CDT
--- OUTSIDE RECORDS SUMMARY | 2020-05-05 12:13 | XMS REPORT | Clinical Summary ---
Author Author Talon, Jeri Wood Organization [facility] Address Unknown Phone Unavailable Allergies, Adverse [...] daily, for vitamin D deficiency 2014 CHOLECALCIFEROL 25319299726 No Longer Active Tesfaye Sherman MD Active TIZANIDINE HCL 2 MG TABS take 1-2 tablet by mouth ev at bedtime at 9pm PRN TIZANIDINE HCL 73939258443 Active Tesfaye Owusu Active ZITHROMAX 250 MG TAB 2 po today, then 1 po q days 2-5 AZITHROMYCIN 07134249062 No Longer Active Tesfaye Sherman MD Acti ve BACTRIM DS 800-160 MG TAB 1 tab by mouth twice daily 2 TRIMETHOPRIM-SULFAMETHOXAZOLE 83215016827 No Longer Active Tesfaye Sherman MD Active PRELIEF 340 (65-50) MG (CA-P) ORAL TABS CALCIUM GLYCEROPHOSPHATE 98994433894 Active Tesfaye Sherman MD Active [facility] NIACIN FLUSH FREE 400-100 MG CAPS 1 daily NIACIN-INOSITOL 99311407609 Active Kayla Cooper MD Active DIFLUCAN 150 MG TABS 1 qd FLUCONAZOLE 03376 051033 No Longer Active Kayla Cooper MD Active FLUTICASONE PROPIONATE 50 MCG/ACT SUSP 1 spray each nostril twice daily FLUTICASONE PROPIONATE 70022635058 Active Tesfaye armenta MD Active LOVASTATIN 20 MG TABS Take 1 tablet by mouth daily LOVASTATIN 04092400763 No Longer Active Tesfaye Sherman MD Active MELOXICAM 7.5 MG TABS 1 tablet by mouth daily M ELOXICAM 22016663385 No Longer Active Tesfaye Sherman MD Active GABAPENTIN 300 MG CAPS Take two tablets by mouth every evening GABAPENTIN 45017385545 No Longer Active Edith Burch MD Active TRIMETHOPRIM 100 MG TABS 1/2 qd TRIMETHOPRIM 3703598 3001 Active Kayla Cooper MD Active OXYCODONE-ACETAMINOPHEN 5-325 MG TABS Take one tablet by mouth every 6 hours as needed. Max 12 tabs/day as needed OXYCODONE-ACETAMINOP HEN 21592791970 Active Tesfaye Sherman MD Active CYMBALTA 60 MG CPEP Take 1 tablet by mouth daily D ULOXETINE HCL 29161916047 Active Kayla Copoer MD Active CLONAZEPAM 0.5 MG TABS Take one tablet in the morning and 1.5 table t at 7pm CLONAZEPAM 48905385183 Active Kayla Cooper MD Active CETIRIZINE HCL 5 MG TABS Take 1 tablet by mouth daily CETIRIZINE HCL 89278907604 Active Kayla Cooper MD Active BACLOFEN 10 MG TABS Take one tablet by mouth three times a day BACLOFEN 72039078125 Active Kayla Cooper MD Active GABAPENTIN 300 MG CAPS Take two tablets by mouth every evening GABAPENTIN 300 MG CAPS 679525 GABAPENTIN Inactive MELOXICAM 7.5 MG TABS 1 tablet by mouth daily MELOXICAM 7.5 MG TABS 408668 MELOXICAM Inactive LOVASTATIN 20 MG TABS Take 1 tablet by mouth daily 201 02/12/20 LOVASTATIN 20 MG TABS 430289 LOVASTATIN Inactive DIFLUCAN 150 MG TABS 1 qd DIFLUCAN 150 MG T ABS 581040 FLUCONAZOLE Inactive VITAMIN D3 2000 UNIT TABS 1 daily, for vitamin D deficiency 2014 VITAMIN D3 2000 UNIT TABS CHOLECALCIFEROL Inacti ve BACTRIM DS 800-160 MG TAB 1 tab by mouth twice daily 2 BACTRIM DS 800-160 MG TAB TRIMETHOPRIM-SULFAMETHOXAZOLE Inac tive ZITHROMAX 250 MG TAB 2 po today, then 1 po q days 2-5 ZITHROMAX 250 MG TAB 3932299 AZITHROMYCIN Inactive Advance Directives Directive Description Start [...] Panel - Chemistry sodium, serum 138 mmol/L 680-701 9406/10/20 creatinine, serum 0.70 mg/dL 0.60-1.30 alanine aminotransferase (SGPT), serum 15 U/L 12-78 aspartate aminotransferase (SGOT), serum 17 U/L 15-37 alkaline phosphatase, serum 90 U/L 50-136 calcium, serum 9.8 mg/dL 8.5-10.1 bilirubin, serum, total 0.90 mg/dL 0.00-1.00 cholesterol, serum 237 mg/dL 699-164 2714/10/20 triglyceride, serum, fasting 71 mg/dL 30-200 HDL cholesterol, serum 54 mg/dL 32-96 LDL cholesterol, serum 169 mg/dL 0-130 potassium, serum 4.5 mmol/L 3.5-5.2 chloride, serum 98 mmol/L 98-107 carbon dioxide, venous blood 28.2 mmol/L 21.0-32 .0 blood glucose 95 mg/dL 65-110 urea nitrogen, blood 6 mg/dL 7-18 Lab Report: Comp. Metabolic Panel, CBC, Lipid [...] Panel - Chemistry cholesterol, serum 221 mg/dL 724-644 0289/01/23 triglyceride, serum, fasting 81 mg/dL 30-200 HDL [...] Negative nitrite, urine, semiquantitative Negative Neg ative ketones, urine, by test strip Negative Negati ve bilirubin, urine Negative Negative urine color Yellow Colorless;Lightyellow;St raw;Yellow appearance, urine Clear Clear specific gravity, urine 1.010 1.000-1.030 pH, urine, semiquantitative 8.0 5.0-8.5 urobilinogen, urine, semiquantitative (dipstick) 0.2 Normal leukocyte esterase, urine, by dipstick Negative Negative nitrite, urine, semiquantitative Negative Neg ative pH, urine, semiquantitative 6.5 5.0-8.5 specific gravity, urine 1.010 1.000-1.030 appearance, urine Clear Clear urine color Yellow Colorless;Lightyellow;St raw;Yellow glucose, urine, semiquantitative Negative Neg ative glucose, urine, semiquantitative Negative Neg ative ketones, urine, by test strip Negative Negati ve bilirubin, urine Negative Negative Office Visit: 1 month recheck - Chemistr y cholesterol, target level 200 mg/dL LDL target level 160 mg/dL HDL cholesterol, serum, target level 40 mg/dL triglyceride, target level 150 mg/dL Office Visit: 3 mo f/u recurrent UTIs - Chemistry RBC, urine, dipstick 1+ Office Visit: 3 mo f/u recurrent UTIs - Urinalysis ketones, urine, by test strip negative bilirubin, urine negative urine color yellow appearance, urine clear leukocyte esterase, urine, by dipstick negative nitrite, urine, semiquantitative negative urobilinogen, urine, semiquantitative (dipstick) 0.2 protein, urine, semiquantitative (dipstick) negative glucose, urine, semiquantitative negative pH, urine, semiquantitative 7 specific gravity, urine 1.000 urinalysis, routine Clean Catch Office Visit: f/u hydrodistention - Chem istry [...] negative Encounters Code Encounter Date Provider Facility CPT-30214 Level 4 Est. Patient 13:50:45 CDT Tesfaye pearson MD [facility] CPT-57268 Level 3 Est. Patient 10:16:10 CDT Tesfaye pearson MD [facility] CPT-28682 Level 3 Est. Patient 16:36:07 ROLL ICER Kayla jameson MD [facility]-27875 Level 4 Est. Patient 16:00:14 ROLL ICER Tesfaye pearson MD [facility]-84520 Level 4 Est. Patient 11:02:24 ROLL ICER Tesfaye pearson MD [facility] CPT-73613 Level 3 Est. Patient 20:21:43 ROLL ICER Kayla jameson MD [facility]-46324 Level 3 Est. Patient 13:27:28 ROLL ICER Kayla jameson MD [facility] CPT-96989 Level 4 Est. Patient 15:57:17 ROLL ICER Tesfaye pearson MD [facility] CPT-76572 Level 3 New Patient 13:25:47 CDT Tesfaye kidd MD [facility] CPT-66579 Level 3 New Patient 17:22:21 CDT Kayla angel MD [facility] Procedures Code Procedure Name Date Entry Date Standard Desc ription CPT-J3420 Vitamin B12 1000mcg (Cyanocobalamin) 15:05:39 CDT CPT-75645 Abx/Therapy Injection 15:05:39 CDT CPT-J3420 Vitamin B12 1000mcg (Cyanocobalamin) 13:50:45 CDT CPT-J3420 Vitamin B12 1000mcg (Cyanocobalamin) 08:48:55 CDT CPT-80133 Abx/Therapy Injection 08:48:55 CDT CPT-J3420 Vitamin B12 1000mcg (Cyanocobalamin) 09:14:54 CDT CPT-76981 Abx/Therapy Injection 09:14:54 CDT CPT-J3420 Vitamin B12 1000mcg (Cyanocobalamin) 09:06:06 CDT CPT-55717 Abx/Therapy Injection 09:06:06 CDT CPT-J3420 Vitamin B12 1000mcg (Cyanocobalamin) 09:49:14 CDT CPT-81770 Abx/Therapy Injection 09:49:14 CDT CPT-J3420 Vitamin B12 1000mcg (Cyanocobalamin) 09:10:30 ROLL ICER CPT-96341 Abx/Therapy Injection 09:10:30 ROLL ICER CPT-J3420 Vitamin B12 1000mcg (Cyanocobalamin) 09:11:07 ROLL ICER CPT-88761 Abx/Therapy Injection 09:11:07 ROLL ICER CPT-J3420 Vitamin B12 1000mcg (Cyanocobalamin) 09:57:03 ROLL ICER CPT-49933 Abx/Therapy Injection 09:57:03 ROLL ICER CPT-J3420 Vitamin B12 1000mcg (Cyanocobalamin) 09:23:21 ROLL ICER CPT-29600 Abx/Therapy Injection 09:23:21 ROLL ICER CPT-42929 Urine Dip (Floor Use Only) 20:21:44 ROLL ICER 201 02/12/11 CPT-04458 UA Dip Auto (Floor Use Only) 10:04:39 ROLL ICER 2 CPT-31212 Urine Dip (Floor Use Only) 13:27:28 ROLL ICER 201 02/12/01 CPT-08487 Bladder Scan 13:27:28 ROLL ICER CPT-70521 Abd single AP View 14:30:51 ROLL ICER CPT-OV Office Visit 10:15:43 CDT CPT-87175 Urine Dip (Floor Use Only) 17:22:21 CDT 201 02/09/02 CPT-45041 Bladder Scan 17:22:21 CDT
--- OUTSIDE RECORDS SUMMARY | 2020-05-05 12:13 | XMS REPORT | Clinical Summary ---
Author Author Talon, Jeri Wood Organization [facility] Address Unknown Phone Unavailable Allergies, Adverse [...] then 1 po q days 2-5 AZITHROMYCIN 58610460163 No Longer Active Tesfaye Sherman MD Acti ve BACTRIM DS 800-160 MG TAB 1 tab by mouth twice daily 2 TRIMETHOPRIM-SULFAMETHOXAZOLE 62098088269 No Longer Active Tesfaye Sherman MD Active VITAMIN D3 2000 UNIT TABS 1 daily, for vitamin D deficiency CHOLECALCIFEROL 13529702234 Active Tesfaye Sherman MD Activ e PRELIEF 340 (65-50) MG (CA-P) ORAL TABS CALCIUM GLYCEROPHOSPHATE 84794270131 Active Tesfaye Sherman MD Active [facility] NIACIN FLUSH FREE 400-100 MG CAPS 1 daily NIACIN-INOSITOL 04525770748 Active Kayla Cooper MD Active DIFLUCAN 150 MG TABS 1 qd FLUCONAZOLE 92463 852375 No Longer Active Kayla Cooper MD Active FLUTICASONE PROPIONATE 50 MCG/ACT SUSP 1 spray each nostril twice daily FLUTICASONE PROPIONATE 10886725910 Active Tesfaye armenta MD Active LOVASTATIN 20 MG TABS Take 1 tablet by mouth daily LOVASTATIN 98068404079 No Longer Active Tesfaye Sherman MD Active MELOXICAM 7.5 MG TABS 1 tablet by mouth daily M ELOXICAM 55979468676 No Longer Active Tesfaye Sherman MD Active GABAPENTIN 300 MG CAPS Take two tablets by mouth every evening GABAPENTIN 49228960653 No Longer Active Edith Burch MD Active TRIMETHOPRIM 100 MG TABS 1/2 qd TRIMETHOPRIM 1593619 3001 Active Kayla Cooper MD Active TIZANIDINE HCL 2 MG TABS take one tablet by mouth every day at bedtime at 9pm TIZANIDINE HCL 24907254605 Active Kayla Cooper MD Active OXYCODONE-ACETAMINOPHEN 5-325 MG TABS Take one tablet by mouth every 6 hours as needed. Max 12 tabs/day as needed OXYCODONE-ACETAMINOP HEN 85027209632 Active Tesfaye Sherman MD Active CYMBALTA 60 MG CPEP Take 1 tablet by mouth daily D ULOXETINE HCL 50340173194 Active Kayla Cooper MD Active CLONAZEPAM 0.5 MG TABS Take one tablet in the morning and 1.5 table t at 7pm CLONAZEPAM 76950128038 Active Kayla Cooper MD Active CETIRIZINE HCL 5 MG TABS Take 1 tablet by mouth daily CETIRIZINE HCL 52663518162 Active Kayla Cooper MD Active BACLOFEN 10 MG TABS Take one tablet by mouth three times a day BACLOFEN 00650654105 Active Kayla Cooper MD Active GABAPENTIN 300 MG CAPS Take two tablets by mouth every evening GABAPENTIN 300 MG CAPS 096780 GABAPENTIN Inactive MELOXICAM 7.5 MG TABS 1 tablet by mouth daily MELOXICAM 7.5 MG TABS 888063 MELOXICAM Inactive LOVASTATIN 20 MG TABS Take 1 tablet by mouth daily 201 02/12/20 LOVASTATIN 20 MG TABS 401531 LOVASTATIN Inactive DIFLUCAN 150 MG TABS 1 qd DIFLUCAN 150 MG T ABS 697619 FLUCONAZOLE Inactive BACTRIM DS 800-160 MG TAB 1 tab by mouth twice daily 2 BACTRIM DS 800-160 MG TAB TRIMETHOPRIM-SULFAMETHOXAZOLE Inac tive ZITHROMAX 250 MG TAB 2 po today, then 1 po q days 2-5 ZITHROMAX 250 MG TAB 6601228 AZITHROMYCIN Inactive Advance Directives Directive Description Start Date PERMISSION TO SHARE PERMISSION TO SHARE Vital Signs Date Name Value Unit Range Description blood pressure, diastolic - 8462-4 70 mm[Hg] [...] Panel - Chemistry sodium, serum 138 mmol/L 703-007 6074/10/20 potassium, serum 4.5 mmol/L 3.5-5.2 chloride, serum [...] 0.90 mg/dL 0.00-1.00 cholesterol, serum 237 mg/dL 299-562 7911/10/20 triglyceride, serum, fasting 71 mg/dL 30-200 HDL [...] Panel - Chemistry cholesterol, serum 221 mg/dL 553-018 4555/01/23 triglyceride, serum, fasting 81 mg/dL 30-200 HDL [...] negative Encounters Code Encounter Date Provider Facility CPT-42411 Level 3 Est. Patient 10:16:10 CDT Tesfaye pearson MD [facility] CPT-73509 Level 3 Est. Patient 16:36:07 CENTER DIRECTOR Kayla jameson MD [facility] CPT-27209 Level 4 Est. Patient 16:00:14 CENTER DIRECTOR Tesfaye pearson MD [facility] CPT-18422 Level 4 Est. Patient 11:02:24 CENTER DIRECTOR Tesfaye pearson MD [facility] CPT-92870 Level 3 Est. Patient 20:21:43 CENTER DIRECTOR Kayla jameson MD [facility] CPT-55599 Level 3 Est. Patient 13:27:28 CENTER DIRECTOR Kayla jameson MD [facility] CPT-86506 Level 4 Est. Patient 15:57:17 CENTER DIRECTOR Tesfaye pearson MD [facility] CPT-38699 Level 3 New Patient 13:25:47 CDT Tesfaye kidd MD [facility] CPT-98285 Level 3 New Patient 17:22:21 CDT Kayla angel MD [facility] Procedures Code Procedure Name Date Entry Date Standard Desc ription CPT-J3420 Vitamin B12 1000mcg (Cyanocobalamin) 09:06:06 CDT CPT-12231 Abx/Therapy Injection 09:06:06 CDT CPT-J3420 Vitamin B12 1000mcg (Cyanocobalamin) 09:49:14 CDT CPT-68866 Abx/Therapy Injection 09:49:14 CDT CPT-J3420 Vitamin B12 1000mcg (Cyanocobalamin) 09:10:30 CENTER DIRECTOR CPT-17880 Abx/Therapy Injection 09:10:30 CENTER DIRECTOR CPT-J3420 Vitamin B12 1000mcg (Cyanocobalamin) 09:11:07 CENTER DIRECTOR CPT-20435 Abx/Therapy Injection 09:11:07 CENTER DIRECTOR CPT-J3420 Vitamin B12 1000mcg (Cyanocobalamin) 09:57:03 CENTER DIRECTOR CPT-95501 Abx/Therapy Injection 09:57:03 CENTER DIRECTOR CPT-J3420 Vitamin B12 1000mcg (Cyanocobalamin) 09:23:21 CENTER DIRECTOR CPT-08525 Abx/Therapy Injection 09:23:21 CENTER DIRECTOR CPT-06608 Urine Dip (Floor Use Only) 20:21:44 CENTER DIRECTOR 201 02/12/11 CPT-89268 UA Dip Auto (Floor Use Only) 10:04:39 CENTER DIRECTOR 2 CPT-67351 Urine Dip (Floor Use Only) 13:27:28 CENTER DIRECTOR 201 02/12/01 CPT-85194 Bladder Scan 13:27:28 CENTER DIRECTOR CPT-98300 Abd single AP View 14:30:51 CENTER DIRECTOR CPT-OV Office Visit 10:15:43 CDT CPT-64701 Urine Dip (Floor Use Only) 17:22:21 CDT 201 02/09/02 CPT-71806 Bladder Scan 17:22:21 CDT
--- OUTSIDE RECORDS SUMMARY | 2020-05-05 12:13 | XMS REPORT | Clinical Summary ---
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 Pain in joint, site unspecified Tobacco abuse [...] TABLET 1 tablet by mouth daily FLUCONAZOLE 12521284831 Active Laurence Dominguez Active BACTRIM DS 800-160 MG ORAL TABLET 1 tab by mouth twice daily 201 06/09/02 TRIMETHOPRIM-SULFAMETHOXAZOLE 53653605574 Active Laurence Dominguez Active DIFLUCAN 100 MG ORAL TABLET 1 tablet by mouth daily 20 20/05/01 FLUCONAZOLE 02238614773 No Longer Active Tesfaye Sherman MD Acti ve PREDNISONE 20 MG ORAL TABLET 1 tablet by mouth twice d aily for 3 days, then 1 tablet daily for 3 days PREDNISONE 97975983133 Active Tesfaye Sherman MD Active ZITHROMAX 250 MG ORAL TABLET 2 po today, then 1 po q days 2-5 20 20/04/28 AZITHROMYCIN 19234026794 Active Tesfaye Sherman MD Ac tive MECLIZINE HCL 25 MG ORAL TABLET one tab po qday prn dizziness 20 17/09/06 MECLIZINE HCL 97546633562 No Longer Active Tesfaye Sherman MD Active PROAIR HFA 108 (90 BASE) MCG/ACT INHALATION AEROSOL SO LUTION 1 puff every 6 hours as needed ALBUTEROL SULFATE 10930893506 No Long er Active Tesfaye Sherman MD Active OXYCODONE-ACETAMINOPHEN 5-325 MG ORAL TABLET Take one tablet by mouth every 6 hours as needed. Use sparingly OXYCODONE-ACETAMINOPHEN 68043311777 Active Tesfaye Sherman MD Active PREDNISONE 20 MG ORAL TABLET 1 tab twice daily for 3 d ay, then one daily for three days PREDNISONE 59315646225 No Longer Active Tesfaye Sherman MD Active MECLIZINE HCL 25 MG ORAL TABLET one 4 times a day as needed for dizziness MECLIZINE HCL 91375329975 Active Laurence Dominguez Active DIFLUCAN 100 MG ORAL TABLET 1 tablet by mouth daily FLUCONAZOLE 79588169052 Active Laurence Dominguez Active AMOXICILLIN 500 MG ORAL CAPSULE 1 cap by mouth three times a day AMOXICILLIN 82824716717 No Longer Active Laurence Dominguez Acti ve VENLAFAXINE HCL 75 MG ORAL TABLET 1 am 1/2 at noon VENLAFAXINE HCL 48836347303 Active Tesfaye Sherman MD Active DIFLUCAN 100 MG ORAL TABLET 1 tablet by mouth daily 20 19/08/26 FLUCONAZOLE 56517937058 No Longer Active Tesfaye Sherman MD Acti ve BACTRIM DS 800-160 MG ORAL TABLET 1 tab by mouth twice daily 201 05/10/28 TRIMETHOPRIM-SULFAMETHOXAZOLE 04272927291 No Longer Active Fer Dominguez Active FOSAMAX 70 MG ORAL TABLET 1 po qweek. Take 30min prio r to first food/drink. Avoid lying down x 1 hour. ALENDRONATE SODIUM 78110749 144 No Longer Active Laurence Dominguez Active REPHRESH PRO-B ORAL CAPSULE 1 tablet daily LACT OBACILLUS 16489313928 Active Edith Burch MD Active CYMBALTA 60 MG ORAL CAPSULE DELAYED RELEASE PARTICLES Take 1 tablet by mouth daily DULOXETINE HCL 93273881289 No Longer Active Edith Burch MD Active CYMBALTA 30 MG ORAL CAPSULE DELAYED RELEASE PARTICLES 1 cap by mouth daily with 60mg DULOXETINE HCL 94430276831 No Longer Active Jordan Burch MD Active FISH OIL 1000 MG ORAL CAPSULE DELAYED RELEASE 1 pill b y mouth daily for cholesterol OMEGA-3 FATTY ACIDS 61787539312 Active Cee Jaffe LPN Active RED YEAST RICE 600 MG ORAL CAPSULE 1 pill by mouth daily RED YEAST RICE EXTRACT 15009171991 Active KENDELL Moreno e DIFLUCAN 100 MG ORAL TABLET 1 tablet by mouth daily 19/03/05 FLUCONAZOLE 61037291822 No Longer Active Tesfaye Sherman MD Acti ve BACTRIM DS 800-160 MG ORAL TABLET 1 tab by mouth twice daily 201 05/06/28 TRIMETHOPRIM-SULFAMETHOXAZOLE 54251862029 No Longer Active Umer Sherman MD Active BACTRIM DS 800-160 MG ORAL TABLET 1 tab by mouth twice daily 201 05/04/15 TRIMETHOPRIM-SULFAMETHOXAZOLE 13163510074 No Longer Active Umer Sherman MD Active DIFLUCAN 150 MG ORAL TABLET 1 tablet by mouth daily 20 18/09/20 FLUCONAZOLE 45650896733 No Longer Active Tesfaye Sherman MD Acti ve BACTRIM DS 800-160 MG ORAL TABLET 1 tab by mouth twice daily 201 04/13/17 TRIMETHOPRIM-SULFAMETHOXAZOLE 41036012149 No Longer Active Umer Sherman MD Active ROPINIROLE HCL 0.25 MG ORAL TABLET 1 TAB PO Q HS ROPINIROLE HCL 69535216162 Active Tesfaye Sherman MD Active CEFTIN 250 MG ORAL TABLET 1 tablet twice daily x 7 days CEFUROXIME AXETIL 43375828590 No Longer Active Tesfaye Sherman MD Active DIFLUCAN 100 MG ORAL TABLET 1 tablet by mouth every other da y for 2 doses FLUCONAZOLE 17454694748 No Longer Active Tesfaye barron MD Active DIFLUCAN 100 MG ORAL TABLET 1 tablet by mouth daily X 3 DAYS 201 04/09/01 FLUCONAZOLE 84195685437 No Longer Active Rj Lyons tidragan MIRTAZAPINE 15 MG ORAL TABLET 1/2 tab by mouth at bedtime. 03/13 MIRTAZAPINE 35243441211 No Longer Active Tesfaye Sherman MD Active BACTRIM DS 800-160 MG ORAL TABLET 1 tab by mouth twice daily 201 04/09/01 TRIMETHOPRIM-SULFAMETHOXAZOLE 08530816627 No Longer Active Umer Sherman MD Active PRAMIPEXOLE DIHYDROCHLORIDE 0.125 MG ORAL TABLET take 1 tablet po qhs for restless leg syndrome. PRAMIPEXOLE DIHYDROCHLORI DE 81388858880 No Longer Active Tesfaye Sherman MD Active MAGNESIUM 400 MG ORAL TABLET 1 tab po daily MAGNRenetta SIUM 92211874365 Active Chelsea Cardenas APRN Active SUDAFED 24 HOUR 240 MG ORAL TABLET EXTENDED RELEASE 24 HOUR 1 tab po daily PSEUDOEPHEDRINE HCL 35686852422 Active Chelsea Cardenas APRN Active CETIRIZINE HCL 5 MG ORAL TABLET Take 1 tablet by mouth daily CETIRIZINE HCL 19372400244 No Longer Active Chelsea Cardenas APRN Activ e TRIMETHOPRIM 100 MG ORAL TABLET 1/2 qd TRIM ETHOPRIM 62185564580 No Longer Active Chelsea Cardenas APRN Active BACTRIM DS 800-160 MG ORAL TABLET 1 tab by mouth twice daily 201 04/04/11 TRIMETHOPRIM-SULFAMETHOXAZOLE 98286788974 No Longer Active D patricia Sherman MD Active BACTRIM DS 800-160 MG ORAL TABLET 1 tab by mouth twice daily X 10 DAYS TRIMETHOPRIM-SULFAMETHOXAZOLE 04166934727 No Longer Active Tesfaye Sherman MD Active AMOXICILLIN 500 MG ORAL CAPSULE 1 cap by mouth three times a day AMOXICILLIN 57961021341 No Longer Active Adriana Arredondo Active B-12 1000 MCG ORAL LOZENGE 1 tab po daily CYANO COBALAMIN 81675715016 Active Tesfaye Sherman MD Active VITAMIN D3 2000 UNIT ORAL TABLET 1 daily, for vitamin D deficien cy CHOLECALCIFEROL 98207583222 No Longer Active Tesfaye Sherman MD Active TIZANIDINE HCL 2 MG ORAL TABLET take 1-2 tablet by mo [facility] every day at bedtime at 9pm PRN TIZANIDINE HCL 54717396197 Active Tesfaye hewitt MD Active ZITHROMAX 250 MG ORAL TABLET 2 po today, then 1 po q days 2-5 20 15/02/10 AZITHROMYCIN 03639261200 No Longer Active Tesfaye Sherman MD Active BACTRIM DS 800-160 MG ORAL TABLET 1 tab by mouth twice daily 201 03/03/23 TRIMETHOPRIM-SULFAMETHOXAZOLE 98858325037 No Longer Active Umer Sherman MD Active PRELIEF 340 (65-50) MG (CA-P) ORAL TABLET CALCIUM GLYCEROPHOSPHATE 43665526305 Active Tesfaye Sherman MD Acti ve [facility] NIACIN FLUSH FREE 400-100 MG ORAL CAPSULE 1 daily NIACIN-INOSITOL 22939119832 Active Kayla Cooper MD Activ e DIFLUCAN 150 MG ORAL TABLET 1 qd FLUCONAZOL E 99542227689 No Longer Active Kyala Cooper MD Active FLUTICASONE PROPIONATE 50 MCG/ACT NASAL SUSPENSION 1 spray each nostril twice daily FLUTICASONE PROPIONATE 83016641008 Active Umer Sherman MD Active LOVASTATIN 20 MG ORAL TABLET Take 1 tablet by mouth daily LOVASTATIN 02462880879 No Longer Active Tesfaye Sherman MD Acti ve MELOXICAM 7.5 MG ORAL TABLET 1 tablet by mouth daily 2 MELOXICAM 52312179324 No Longer Active Tesfaye Sherman MD Acti ve GABAPENTIN 300 MG ORAL CAPSULE Take two tablets by mouth every e vening GABAPENTIN 37230282710 No Longer Active Edith Burch MD A ctive CLONAZEPAM 0.5 MG ORAL TABLET Take one tablet in the m orning and 1.5 tablet at 7pm CLONAZEPAM 62228934142 Active Kayla Cooper MD Active BACLOFEN 10 MG ORAL TABLET Take one tablet by mouth three times a d ay BACLOFEN 98216732430 Active Kayla Cooper MD Active GABAPENTIN 300 MG ORAL CAPSULE Take two tablets by mouth every e vening GABAPENTIN 300 MG ORAL CAPSULE 276796 GABAPENTIN I nactive MELOXICAM 7.5 MG ORAL TABLET 1 tablet by mouth daily 2 MELOXICAM 7.5 MG ORAL TABLET 752767 MELOXICAM Inactive LOVASTATIN 20 MG ORAL TABLET Take 1 tablet by mouth daily LOVASTATIN 20 MG ORAL TABLET 417208 LOVASTATIN Inactive DIFLUCAN 150 MG ORAL TABLET 1 qd DIFLUCAN 150 MG ORAL TABLET 690188 FLUCONAZOLE Inactive VITAMIN D3 2000 UNIT ORAL TABLET 1 daily, for vitamin D deficien cy VITAMIN D3 2000 UNIT ORAL TABLET CHOLECALCIFEROL Inactive AMOXICILLIN 500 MG ORAL CAPSULE 1 cap by mouth three times a day AMOXICILLIN 500 MG ORAL CAPSULE 634378 AMOXICILLIN Inactive BACTRIM DS 800-160 MG ORAL TABLET 1 tab by mouth twice daily X 10 DAYS BACTRIM DS 800-160 MG ORAL TABLET 445721 TRIMETHOPRIM-SULFAMETHOXAZOLE Inactive TRIMETHOPRIM 100 MG ORAL TABLET 1/2 qd 7 TRIMETHOPRIM 100 MG ORAL TABLET 818194 TRIMETHOPRIM Inactive CETIRIZINE HCL 5 MG ORAL TABLET Take 1 tablet by mouth daily CETIRIZINE HCL 5 MG ORAL TABLET 7946858 CETIRIZINE HCL Inactive PRAMIPEXOLE DIHYDROCHLORIDE 0.125 MG ORAL TABLET take 1 tablet po qhs for restless leg syndrome. PRAMIPEXOLE DIHYD ROCHLORIDE 0.125 MG ORAL TABLET 413787 PRAMIPEXOLE DIHYDROCHLORIDE Inactive MIRTAZAPINE 15 MG ORAL TABLET 1/2 tab by mouth at bedtime. 03/13 MIRTAZAPINE 15 MG ORAL TABLET 001095 MIRTAZAPINE In active DIFLUCAN 100 MG ORAL TABLET 1 tablet by mouth daily X 3 DAYS 201 04/09/01 DIFLUCAN 100 MG ORAL TABLET 765754 FLUCONAZOLE Inac tive DIFLUCAN 100 MG ORAL TABLET 1 tablet by mouth every other da y for 2 doses DIFLUCAN 100 MG ORAL TABLET 025090 FLUCONAZOLE Inactive CEFTIN 250 MG ORAL TABLET 1 tablet twice daily x 7 days CEFTIN 250 MG ORAL TABLET CEFUROXIME AXETIL Inactive CYMBALTA 30 MG ORAL CAPSULE DELAYED RELEASE PARTICLES 1 cap by mouth daily with 60mg CYMBALTA 30 MG ORAL CAPSULE DELAYED RELEASE PARTICLES 738676 DULOXETINE HCL Inactive CYMBALTA 60 MG ORAL CAPSULE DELAYED RELEASE PARTICLES Take 1 tablet by mouth daily CYMBALTA 60 MG ORAL CAPSULE DELAYED RELEA SE PARTICLES 930019 DULOXETINE HCL Inactive FOSAMAX 70 MG ORAL TABLET 1 po qweek. Take 30min prio r to first food/drink. Avoid lying down x 1 hour. FOSAMAX 70 MG ORAL TA BLET 478549 ALENDRONATE SODIUM Inactive DIFLUCAN 100 MG ORAL TABLET 1 tablet by mouth daily 19/08/26 DIFLUCAN 100 MG ORAL TABLET 770245 FLUCONAZOLE Inactive PREDNISONE 20 MG ORAL TABLET 1 tab twice daily for 3 d ay, then one daily for three days PREDNISONE 20 MG ORAL TABLET 293142 PREDNIS ONE Inactive PROAIR HFA 108 (90 BASE) MCG/ACT INHALATION AEROSOL SO LUTION 1 puff every 6 hours as needed PROAIR HFA 108 (90 B ASE) MCG/ACT INHALATION AEROSOL SOLUTION ALBUTEROL SULFATE Inactive MECLIZINE HCL 25 MG ORAL TABLET one tab po qday prn dizziness 20 17/09/06 MECLIZINE HCL 25 MG ORAL TABLET 278684 MECLIZINE HCL Inactive BACTRIM DS 800-160 MG ORAL TABLET 1 tab by mouth twice daily 201 03/03/23 BACTRIM DS 800-160 MG ORAL TABLET 358866 TRIMETHOPRIM-SULFAMETHOXAZOLE Inactive ZITHROMAX 250 MG ORAL TABLET 2 po today, then 1 po q days 2-5 20 15/02/10 ZITHROMAX 250 MG ORAL TABLET 501653 AZITHROMYCIN [place] ctive BACTRIM DS 800-160 MG ORAL TABLET [...] daily 18/09/20 DIFLUCAN 150 MG ORAL TABLET 480291 FLUCONAZOLE Inactive BACTRIM DS 800-160 MG ORAL [...] daily 19/03/05 DIFLUCAN 100 MG ORAL TABLET 645815 FLUCONAZOLE Inactive BACTRIM DS 800-160 MG ORAL TABLET 1 tab by mouth twice daily 201 05/10/28 BACTRIM DS 800-160 MG ORAL TABLET 19830105 TRIMETHOPRIM-SULFAMETHOXAZOLE Inactive AMOXICILLIN 500 MG ORAL CAPSULE 1 cap by mouth three times a day AMOXICILLIN 500 MG ORAL CAPSULE 576564 AMOXICILLIN Inactive DIFLUCAN 100 MG ORAL TABLET 1 tablet by mouth daily 20 20/05/01 DIFLUCAN 100 MG ORAL TABLET 623083 FLUCONAZOLE Inactive Advance Directives Directive Description Start Date PERMISSION TO SHARE DISCUSSED WITH PATIENT -- NO DECISION 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 Patient 22:18:12 CDT Tesfaye pearson MD [facility] CPT-85289 Level 4 Est. Patient 14:44:33 TUBE FITTER Tesfaye pearson MD [facility] CPT-81667 Level 4 Est. Patient 13:55:29 TUBE FITTER Tesfaye pearson MD [facility] CPT-71094 Level 4 Est. Patient 17:07:34 TUBE FITTER Tesfaye pearson MD [facility] CPT-50981 Level 4 Est. Patient 13:56:54 CDT Tesfaye pearson MD [facility]-24743 Level 4 Est. Patient 13:24:25 CDT Chelsea sanz APRN [facility] CPT-20751 Level 4 Est. Patient 09:14:56 CDT Tesfaye pearson MD [facility]-18727 Level 4 Est. Patient 18:40:25 TUBE FITTER Tesfaye pearson MD [facility]-29939 Level 4 Est. Patient 18:13:07 TUBE FITTER Tesfaye pearson MD [facility] CPT-03086 Level 3 Est. Patient 10:46:32 CDT Rj cotto DO [facility] CPT-13005 Level 4 Est. Patient 20:19:25 CDT Tesfaye pearson MD [facility]-90303 Level 3 Est. Patient 09:07:31 CDT Tesfaye pearson MD [facility] CPT-14740 Level 4 Est. Patient 13:12:56 CDT Tesfaye pearson MD [facility]-01529 Level 4 Est. Patient 21:24:55 TUBE FITTER Tesfaye pearson MD [facility]-65533 Level 3 Est. Patient 13:45:04 TUBE FITTER Tesfaye pearson MD [facility] CPT-39531 Level 4 Est. Patient 13:50:45 CDT Tesfaye pearson MD [facility] CPT-47290 Level 3 Est. Patient 10:16:10 CDT Tesfaye pearson MD [facility] CPT-12757 Level 3 Est. Patient 16:36:07 TUBE FITTER Kayla jameson MD [facility]-62868 Level 4 Est. Patient 16:00:14 TUBE FITTER Tesfaye pearson MD [facility] CPT-85147 Level 4 Est. Patient 11:02:24 TUBE FITTER Tesfaye pearson MD [facility] CPT-93524 Level 3 Est. Patient 20:21:43 TUBE FITTER Kayla jameson MD [facility] CPT-73316 Level 3 Est. Patient 13:27:28 TUBE FITTER Kayla jameson MD [facility] CPT-50806 Level 4 Est. Patient 15:57:17 TUBE FITTER Tesfaye pearson MD [facility] CPT-75413 Level 3 New Patient 13:25:47 CDT Tesfaye kidd MD [facility] CPT-48585 Level 3 New Patient 17:22:21 CDT J John angel MD [facility] Procedures Code Procedure Name Date Entry Date Standard Desc ription CPT-G0439 Subsequent Annual Wellness Exam 22:18:11 CDT CPT-58422 Bone Density - XRAY USE ONLY 11:43:58 CDT 2 CPT-44813 Bone Density - XRAY USE ONLY 10:05:16 CDT 2 CPT-05829 Prv Med New Pt 40-64 yrs 18:19:25 CDT 2016 CPT-73244 Foot, right, comp min 3V - XRAY USE ONLY 10:38:34 CDT CPT-G0439 Subsequent Annual Wellness Exam 13:55:04 CDT CPT-G0438 Initial Annual Wellness Exam 11:23:17 CD T CPT-J2930 Solu Medrol 125 mg (Methyl Prednisolone Sodium Succinate) 17:29:12 TUBE FITTER CPT-55461 Abx/Therapy Injection 17:29:11 TUBE FITTER CPT-J2930 Solu Medrol 125 mg (Methyl Prednisolone Sodium Succinate) 12:34:38 TUBE FITTER CPT-J3420 Vitamin B12 1000mcg (Cyanocobalamin) 09:12:55 CDT CPT-J3420 Vitamin B12 1000mcg (Cyanocobalamin) 16:28:06 TUBE FITTER CPT-24531 Venipuncture Draw Fee 08:39:53 CDT CPT-J3420 Vitamin B12 1000mcg (Cyanocobalamin) 08:46:22 CDT CPT-26295 Abx/Therapy Injection 08:46:22 CDT CPT-J3420 Vitamin B12 1000mcg (Cyanocobalamin) 08:41:26 CDT CPT-81690 Abx/Therapy Injection 08:41:26 CDT CPT-J3420 Vitamin B12 1000mcg (Cyanocobalamin) 08:57:15 CDT CPT-60187 Abx/Therapy Injection 08:57:15 CDT CPT-J3420 Vitamin B12 1000mcg (Cyanocobalamin) 10:59:03 CDT CPT-84639 Abx/Therapy Injection 10:59:03 CDT CPT-J3420 Vitamin B12 1000mcg (Cyanocobalamin) 15:05:39 CDT CPT-00267 Abx/Therapy Injection 15:05:39 CDT CPT-J3420 Vitamin B12 1000mcg (Cyanocobalamin) 13:50:45 CDT CPT-J3420 Vitamin B12 1000mcg (Cyanocobalamin) 08:48:55 CDT CPT-65228 Abx/Therapy Injection 08:48:55 CDT CPT-J3420 Vitamin B12 1000mcg (Cyanocobalamin) 09:14:54 CDT CPT-53929 Abx/Therapy Injection 09:14:54 CDT CPT-J3420 Vitamin B12 1000mcg (Cyanocobalamin) 09:06:06 CDT CPT-10986 Abx/Therapy Injection 09:06:06 CDT CPT-J3420 Vitamin B12 1000mcg (Cyanocobalamin) 09:49:14 CDT CPT-26134 Abx/Therapy Injection 09:49:14 CDT CPT-J3420 Vitamin B12 1000mcg (Cyanocobalamin) 09:10:30 TUBE FITTER CPT-48332 Abx/Therapy Injection 09:10:30 TUBE FITTER CPT-J3420 Vitamin B12 1000mcg (Cyanocobalamin) 09:11:07 TUBE FITTER CPT-25238 Abx/Therapy Injection 09:11:07 TUBE FITTER CPT-J3420 Vitamin B12 1000mcg (Cyanocobalamin) 09:57:03 TUBE FITTER CPT-47389 Abx/Therapy Injection 09:57:03 TUBE FITTER CPT-J3420 Vitamin B12 1000mcg (Cyanocobalamin) 09:23:21 TUBE FITTER CPT-30595 Abx/Therapy Injection 09:23:21 TUBE FITTER CPT-02182 Urine Dip (Floor Use Only) 20:21:44 TUBE FITTER 201 02/12/11 CPT-38697 UA Dip Auto (Floor Use Only) 10:04:39 TUBE FITTER 2 CPT-65390 Urine Dip (Floor Use Only) 13:27:28 TUBE FITTER 201 02/12/01 CPT-78197 Bladder Scan 13:27:28 TUBE FITTER CPT-70149 Abd single AP View 14:30:51 TUBE FITTER CPT-OV Office Visit 10:15:43 CDT CPT-75570 Urine Dip (Floor Use Only) 17:22:21 CDT 201 02/09/02 CPT-39074 Bladder Scan 17:22:21 CDT
--- OUTSIDE RECORDS SUMMARY | 2020-05-05 12:14 | XMS REPORT | Clinical Summary ---
Author Author Jeri Hanley Organization [employer] Address Unknown Phone Unavailable Allergies, Adverse [...] 1 tablet by mouth daily FLU CONAZOLE [id number] No Longer Active Tesfaye Sherman MD Active BACTRIM DS 800-160 MG TAB 1 tab by mouth twice daily 2 TRIMETHOPRIM-SULFAMETHOXAZOLE 25649073265 No Longer Active Tesfaye Sherman MD Active BACTRIM DS 800-160 MG TAB 1 tab by mouth twice daily 2 TRIMETHOPRIM-SULFAMETHOXAZOLE 05579292261 No Longer Active Tesfaye Sherman MD Active DIFLUCAN 150 MG TAB 1 tablet by mouth daily FLU CONAZOLE 77266042763 No Longer Active Tesfaye Sherman MD Active BACTRIM DS 800-160 MG TAB 1 tab by mouth twice daily 2 TRIMETHOPRIM-SULFAMETHOXAZOLE 74766711440 No Longer Active Tesfaye Sherman MD Active ROPINIROLE HCL 0.25 MG ORAL TABS 1 TAB PO Q HS ROPINIROLE HCL 39255096541 Active Tesfaye Sherman MD Active CYMBALTA 30 MG CPEP 1 cap by mouth daily with 60mg DULOXETINE HCL 84592522120 Active Tesfaye Sherman MD Active CEFTIN 250 MG TAB 1 tablet twice daily x 7 days 11/19 CEFUROXIME AXETIL 78271475805 No Longer Active Tesfaye Sherman MD Acti ve DIFLUCAN 100 MG TABS 1 tablet by mouth every other day for 2 dos es FLUCONAZOLE 99262863627 No Longer Active Tesfaye Sherman MD Active DIFLUCAN 100 MG TAB 1 tablet by mouth daily X 3 DAYS 2 FLUCONAZOLE 57043206183 No Longer Active Rj Moss DO Active MIRTAZAPINE 15 MG ORAL TABS 1/2 tab by mouth at bedtime. MIRTAZAPINE 00376056489 No Longer Active Tesfaye Sherman MD Acti ve BACTRIM DS 800-160 MG TAB 1 tab by mouth twice daily 2 TRIMETHOPRIM-SULFAMETHOXAZOLE 71758709292 No Longer Active Tesfaye Sherman MD Active PRAMIPEXOLE DIHYDROCHLORIDE 0.125 MG ORAL TABS take 1 tablet po qhs for restless leg syndrome. PRAMIPEXOLE DIHYDROCHLORIDE 18096205786 No Longer Active Tesfaye Sherman MD Active MAGNESIUM 400 MG ORAL TABS 1 tab po daily MAGNESI UM 96882536821 Active Chelsea Barba APRN Active SUDAFED 24 HOUR 240 MG ORAL [id number] 1 tab po daily PSEUDOEPHEDRINE HCL 10538842139 Active Chelsea Barba APRN A ctive CETIRIZINE HCL 5 MG TABS Take 1 tablet by mouth daily CETIRIZINE HCL 68879711821 No Longer Active Chelesa Barba APRN Acti ve TRIMETHOPRIM 100 MG TABS 1/2 qd TRIMETHOPRIM 51096500871 No Longer Active Chelsea Barba APRN Active BACTRIM DS 800-160 MG TAB 1 tab by mouth twice daily 2 TRIMETHOPRIM-SULFAMETHOXAZOLE 23881260954 No Longer Active Tesfaye Sherman MD Active BACTRIM DS 800-160 MG TAB 1 tab by mouth twice daily X 10 DAYS 2 TRIMETHOPRIM-SULFAMETHOXAZOLE 54941019102 No Longer Active D patricia Sherman MD Active AMOXICILLIN 500 MG CAPS 1 cap by mouth three times a day AMOXICILLIN 42317324940 No Longer Active Adriana Arredondo Active MECLIZINE HCL 25 MG TAB one tab po qday prn dizziness MECLIZINE HCL 48540836089 Active Tesfaye Sherman MD Active B-12 1000 MCG ORAL LOZG 1 tab po daily CYANOCOBAL STANTON 40756495110 Active Tesfaye Sherman MD Active VITAMIN D3 2000 UNIT TABS 1 daily, for vitamin D deficiency 2014 CHOLECALCIFEROL 04020201738 No Longer Active Tesfaye Sherman MD Active TIZANIDINE HCL 2 MG TABS take 1-2 tablet by mouth ev [place] day at bedtime at 9pm PRN TIZANIDINE HCL 04308824107 Active Tesfaye Owusu Active ZITHROMAX 250 MG TAB 2 po today, then 1 po q days 2-5 AZITHROMYCIN 84474715965 No Longer Active Tesfaye Sherman MD Acti ve BACTRIM DS 800-160 MG TAB 1 tab by mouth twice daily 2 TRIMETHOPRIM-SULFAMETHOXAZOLE 12861167719 No Longer Active Tesfaye Sherman MD Active PRELIEF 340 (65-50) MG (CA-P) ORAL TABS CALCIUM GLYCEROPHOSPHATE 06299491425 Active Tesfaye Sherman MD Active [facility] NIACIN FLUSH FREE 400-100 MG CAPS 1 daily NIACIN-INOSITOL 84638427404 Active Kayla Cooper MD Active DIFLUCAN 150 MG TABS 1 qd FLUCONAZOLE 30122 177065 No Longer Active Kayla Cooper MD Active FLUTICASONE PROPIONATE 50 MCG/ACT SUSP 1 spray each nostril twice daily FLUTICASONE PROPIONATE 72515523304 Active Tesfaye armenta MD Active LOVASTATIN 20 MG TABS Take 1 tablet by mouth daily LOVASTATIN 28433250214 No Longer Active Tesfaye Sherman MD Active MELOXICAM 7.5 MG TABS 1 tablet by mouth daily M ELOXICAM 27709552683 No Longer Active Tesfaye Sherman MD Active GABAPENTIN 300 MG CAPS Take two tablets by mouth every evening GABAPENTIN 12116729669 No Longer Active Edith Burch MD Active OXYCODONE-ACETAMINOPHEN 5-325 MG TABS Take one tablet by mouth every 6 hours as needed. Max 12 tabs/day as needed OXYCODONE-ACETAMINOP HEN 75128784405 Active Tesfaye Sherman MD Active CYMBALTA 60 MG CPEP Take 1 tablet by mouth daily D ULOXETINE HCL 83701890077 Active Kayla Cooper MD Active CLONAZEPAM 0.5 MG TABS Take one tablet in the morning and 1.5 table t at 7pm CLONAZEPAM 97572655103 Active Kayla Cooper MD Active BACLOFEN 10 MG TABS Take one tablet by mouth three times a day BACLOFEN 00191029425 Active Kayla Cooper MD Active GABAPENTIN 300 MG CAPS Take two tablets by mouth every evening GABAPENTIN 300 MG CAPS 461536 GABAPENTIN Inactive MELOXICAM 7.5 MG TABS 1 tablet by mouth daily MELOXICAM 7.5 MG TABS 862275 MELOXICAM Inactive LOVASTATIN 20 MG TABS Take 1 tablet by mouth daily 201 02/12/20 LOVASTATIN 20 MG TABS 464446 LOVASTATIN Inactive DIFLUCAN 150 MG TABS 1 qd DIFLUCAN 150 MG T ABS 19760712 FLUCONAZOLE Inactive VITAMIN D3 2000 UNIT TABS 1 daily, for vitamin D deficiency 2014 VITAMIN D3 2000 UNIT TABS CHOLECALCIFEROL Inacti ve AMOXICILLIN 500 MG CAPS 1 cap by mouth three times a day AMOXICILLIN 500 MG CAPS 266350 AMOXICILLIN Inactive BACTRIM DS 800-160 MG TAB 1 tab by mouth twice daily X 10 DAYS 2 BACTRIM DS 800-160 MG TAB 081672 TRIMETHOPRIM-SULFAMETH OXAZOLE Inactive TRIMETHOPRIM 100 MG TABS 1/2 qd TRIMETHOPRI M 100 MG TABS 399846 TRIMETHOPRIM Inactive CETIRIZINE HCL 5 MG TABS Take 1 tablet by mouth daily CETIRIZINE HCL 5 MG TABS 6164648 CETIRIZINE HCL Inactive PRAMIPEXOLE DIHYDROCHLORIDE 0.125 MG ORAL TABS take 1 tablet po qhs for restless leg syndrome. PRAMIPEXOLE DIHYDROC HLORIDE 0.125 MG ORAL TABS 096846 PRAMIPEXOLE DIHYDROCHLORIDE Inactive MIRTAZAPINE 15 MG ORAL TABS 1/2 tab by mouth at bedtime. MIRTAZAPINE 15 MG ORAL TABS 694640 MIRTAZAPINE Inactive DIFLUCAN 100 MG TAB 1 tablet by mouth daily X 3 DAYS 2 DIFLUCAN 100 MG TAB 19760711 FLUCONAZOLE Inactive DIFLUCAN 100 MG TABS 1 tablet by mouth every other day for 2 dos es DIFLUCAN 100 MG TABS 19760711 FLUCONAZOLE Inactive CEFTIN 250 MG TAB 1 tablet twice daily x 7 days 11/19 CEFTIN 250 MG TAB 835186 CEFUROXIME AXETIL Inactive BACTRIM DS 800-160 MG TAB 1 tab by mouth twice daily 2 BACTRIM DS 800-160 MG TAB 19830105 TRIMETHOPRIM-SULFAMETHOXAZOLE Inac tive ZITHROMAX 250 MG TAB 2 po today, then 1 po q days 2-5 ZITHROMAX 250 MG TAB 3524496 AZITHROMYCIN Inactive BACTRIM DS 800-160 MG TAB [...] by mouth daily DIFLUCAN 100 MG TAB 562889 FLUCONAZOLE Inactive Advance Directives Directive Description Start [...] - [id number] [lb_av] Weigh t Measured Diagnostic Results Date [...] mg/dL Encounters Code Encounter Date Provider Facility CPT-[id number] Level 4 Est. Patient 09:14:56 CDT Tesfaye pearson MD [facility] CPT-03555 Level 4 Est. Patient 18:40:25 PER DIEM CLERK Tesfaye pearson MD [facility] CPT-53724 Level 4 Est. Patient 18:13:07 PER DIEM CLERK Tesfaye pearson MD [facility]-96621 Level 3 Est. Patient 10:46:32 CDT Rj cotto DO [facility] CPT-49714 Level 4 Est. Patient 20:19:25 CDT Tesfaye pearson MD [facility]-10089 Level 3 Est. Patient 09:07:31 CDT Tesfaye pearson MD [facility]-05929 Level 4 Est. Patient 13:12:56 CDT Tesfaye pearson MD [facility]-12652 Level 4 Est. Patient 21:24:55 PER DIEM CLERK Tesfaye pearson MD [facility]-53886 Level 3 Est. Patient 13:45:04 PER DIEM CLERK Tesfaye pearson MD [facility] CPT-94571 Level 4 Est. Patient 13:50:45 CDT Tesfaye pearson MD [facility] CPT-17166 Level 3 Est. Patient 10:16:10 CDT Tesfaye pearson MD [facility] CPT-36919 Level 3 Est. Patient 16:36:07 PER DIEM CLERK Kayla jameson MD [facility]-15601 Level 4 Est. Patient 16:00:14 PER DIEM CLERK Tesfaye pearson MD [facility]-46842 Level 4 Est. Patient 11:02:24 PER DIEM CLERK Tesfaye pearson MD [facility]-74056 Level 3 Est. Patient 20:21:43 PER DIEM CLERK Kayla jameson MD [facility]-18001 Level 3 Est. Patient 13:27:28 PER DIEM CLERK Kayla jameson MD [facility]-53220 Level 4 Est. Patient 15:57:17 PER DIEM CLERK Tesfaye pearson MD [facility] CPT-34628 Level 3 New Patient 13:25:47 CDT Tesfaye kidd MD [facility] CPT-85995 Level 3 New Patient 17:22:21 CDT Kalya angel MD [facility] Procedures Code Procedure Name Date Entry Date Standard Desc ription CPT-G0438 Initial Annual Wellness Exam 11:23:17 CD T CPT-J2930 Solu Medrol 125 mg (Methyl Prednisolone Sodium Succinate) 17:29:12 PER DIEM CLERK CPT-13783 Abx/Therapy Injection 17:29:11 PER DIEM CLERK CPT-J2930 Solu Medrol 125 mg (Methyl Prednisolone Sodium Succinate) 12:34:38 PER DIEM CLERK CPT-J3420 Vitamin B12 1000mcg (Cyanocobalamin) 09:12:55 CDT CPT-J3420 Vitamin B12 1000mcg (Cyanocobalamin) 16:28:06 PER DIEM CLERK CPT-39516 Venipuncture Draw Fee 08:39:53 CDT CPT-J3420 Vitamin B12 1000mcg (Cyanocobalamin) 08:46:22 CDT CPT-23200 Abx/Therapy Injection 08:46:22 CDT CPT-J3420 Vitamin B12 1000mcg (Cyanocobalamin) 08:41:26 CDT CPT-17597 Abx/Therapy Injection 08:41:26 CDT CPT-J3420 Vitamin B12 1000mcg (Cyanocobalamin) 08:57:15 CDT CPT-91731 Abx/Therapy Injection 08:57:15 CDT CPT-J3420 Vitamin B12 1000mcg (Cyanocobalamin) 10:59:03 CDT CPT-45572 Abx/Therapy Injection 10:59:03 CDT CPT-J3420 Vitamin B12 1000mcg (Cyanocobalamin) 15:05:39 CDT CPT-91670 Abx/Therapy Injection 15:05:39 CDT CPT-J3420 Vitamin B12 1000mcg (Cyanocobalamin) 13:50:45 CDT CPT-J3420 Vitamin B12 1000mcg (Cyanocobalamin) 08:48:55 CDT CPT-56513 Abx/Therapy Injection 08:48:55 CDT CPT-J3420 Vitamin B12 1000mcg (Cyanocobalamin) 09:14:54 CDT CPT-09364 Abx/Therapy Injection 09:14:54 CDT CPT-J3420 Vitamin B12 1000mcg (Cyanocobalamin) 09:06:06 CDT CPT-81066 Abx/Therapy Injection 09:06:06 CDT CPT-J3420 Vitamin B12 1000mcg (Cyanocobalamin) 09:49:14 CDT CPT-37390 Abx/Therapy Injection 09:49:14 CDT CPT-J3420 Vitamin B12 1000mcg (Cyanocobalamin) 09:10:30 PER DIEM CLERK CPT-93968 Abx/Therapy Injection 09:10:30 PER DIEM CLERK CPT-J3420 Vitamin B12 1000mcg (Cyanocobalamin) 09:11:07 PER DIEM CLERK CPT-56903 Abx/Therapy Injection 09:11:07 PER DIEM CLERK CPT-J3420 Vitamin B12 1000mcg (Cyanocobalamin) 09:57:03 PER DIEM CLERK CPT-04998 Abx/Therapy Injection 09:57:03 PER DIEM CLERK CPT-J3420 Vitamin B12 1000mcg (Cyanocobalamin) 09:23:21 PER DIEM CLERK CPT-32470 Abx/Therapy Injection 09:23:21 PER DIEM CLERK CPT-95597 Urine Dip (Floor Use Only) 20:21:44 PER DIEM CLERK 201 02/12/11 CPT-62669 UA Dip Auto (Floor Use Only) 10:04:39 PER DIEM CLERK 2 CPT-98203 Urine Dip (Floor Use Only) 13:27:28 PER DIEM CLERK 201 02/12/01 CPT-05564 Bladder Scan 13:27:28 PER DIEM CLERK CPT-16597 Abd single AP View 14:30:51 PER DIEM CLERK CPT-OV Office Visit 10:15:43 CDT CPT-03346 Urine Dip (Floor Use Only) 17:22:21 CDT 201 02/09/02 CPT-25556 Bladder Scan 17:22:21 CDT
--- OUTSIDE RECORDS SUMMARY | 2020-05-05 12:14 | XMS REPORT | Clinical Summary ---
Author Author Talon, Jeri Wood Organization [facility] Address Unknown Phone Unavailable Allergies, Adverse Reactions, [...] Toe pain, right 729.5 Active Chelsea Cardenas [employer] Pain in limb Foot pain, right 729.5 Active Chelsea Cardenas [employer] Pain in limb Joint pain 719.40 Active Chelsea Cardenas [employer] Pain in joint, site unspecified Tobacco abuse [...] Active 04/05 Tesfaye Sherman MD Rheumatoid arthritis Medication List Medication Instructions Start Date Stop Date Generic Name NDC Status Provider Patient Instruction OXYCODONE-ACETAMINOPHEN 5-325 MG ORAL TABLET Take one tablet by mouth every 6 hours as needed. Use sparingly OXYCODONE-ACETAMINOPHEN 05224716316 Active Tesfaye Sherman MD Active PREDNISONE 20 MG ORAL TABLET 1 tab twice daily for 3 d ay, then one daily for three days PREDNISONE 61886193712 No Longer Active Tesfaye Sherman MD Active PROAIR HFA 108 (90 BASE) MCG/ACT INHALATION AEROSOL SO LUTION 1 puff every 6 hours as needed ALBUTEROL SULFATE 71106044189 Active [place] nda Raida Active MECLIZINE HCL 25 MG ORAL TABLET one 4 times a day as needed for dizziness MECLIZINE HCL 86563883853 Active Laurence Raduyen Active DIFLUCAN 100 MG ORAL TABLET 1 tablet by mouth daily FLUCONAZOLE 05093772699 Active Laurenceyohana Dominguez Active AMOXICILLIN 500 MG ORAL CAPSULE 1 cap by mouth three times a day AMOXICILLIN 28342025873 No Longer Active Laurenceyohana Dominguez Acti ve VENLAFAXINE HCL 75 MG ORAL TABLET 1 am 1/2 at noon VENLAFAXINE HCL 73223498316 Active Tesfaye Sherman MD Active DIFLUCAN 100 MG ORAL TABLET 1 tablet by mouth daily 20 19/08/26 FLUCONAZOLE 11949910168 No Longer Active Tesfaye Sherman MD Acti ve BACTRIM DS 800-160 MG ORAL TABLET 1 tab by mouth twice daily 201 05/10/28 TRIMETHOPRIM-SULFAMETHOXAZOLE 36326130454 No Longer Active A mirna Dominguez Active FOSAMAX 70 MG ORAL TABLET 1 po qweek. Take 30min prio r to first food/drink. Avoid lying down x 1 hour. ALENDRONATE SODIUM 23508374 144 No Longer Active Laurence Raida Active REPHRESH PRO-B ORAL CAPSULE 1 tablet daily LACT OBACILLUS 45154610554 Active Edith Burch MD Active CYMBALTA 60 MG ORAL CAPSULE DELAYED RELEASE PARTICLES Take 1 tablet by mouth daily DULOXETINE HCL 68070347748 No Longer Active Edith Burch MD Active CYMBALTA 30 MG ORAL CAPSULE DELAYED RELEASE PARTICLES 1 cap by mouth daily with 60mg DULOXETINE HCL 53499117530 No Longer Active Jordan Burch MD Active FISH OIL 1000 MG ORAL CAPSULE DELAYED RELEASE 1 pill b y mouth daily for cholesterol OMEGA-3 FATTY ACIDS 06226935674 Active Cee Jaffe LPN Active RED YEAST RICE 600 MG ORAL CAPSULE 1 pill by mouth daily RED YEAST RICE EXTRACT 31001247337 Active Rosa Jaffe LPN Activ e DIFLUCAN 100 MG ORAL TABLET 1 tablet by mouth daily 20 19/03/05 FLUCONAZOLE 47093152530 No Longer Active Tesfaye Sherman MD Acti ve BACTRIM DS 800-160 MG ORAL TABLET 1 tab by mouth twice daily 201 05/06/28 TRIMETHOPRIM-SULFAMETHOXAZOLE 08543715503 No Longer Active Umer Sherman MD Active BACTRIM DS 800-160 MG ORAL TABLET 1 tab by mouth twice daily 201 05/04/15 TRIMETHOPRIM-SULFAMETHOXAZOLE 02631586632 No Longer Active Umer Sherman MD Active DIFLUCAN 150 MG ORAL TABLET 1 tablet by mouth daily 20 18/09/20 FLUCONAZOLE 75953340444 No Longer Active Tsefaye Sherman MD Acti ve BACTRIM DS 800-160 MG ORAL TABLET 1 tab by mouth twice daily 201 04/13/17 TRIMETHOPRIM-SULFAMETHOXAZOLE 64850617316 No Longer Active Umer Sherman MD Active ROPINIROLE HCL 0.25 MG ORAL TABLET 1 TAB PO Q HS ROPINIROLE HCL 14993217631 Active Tesfaye Sherman MD Active CEFTIN 250 MG ORAL TABLET 1 tablet twice daily x 7 days CEFUROXIME AXETIL 97637707601 No Longer Active Tesfaye Sherman MD Active DIFLUCAN 100 MG ORAL TABLET 1 tablet by mouth every other da y for 2 doses FLUCONAZOLE 18065392340 No Longer Active Tesfaye barron MD Active DIFLUCAN 100 MG ORAL TABLET 1 tablet by mouth daily X 3 DAYS 201 04/09/01 FLUCONAZOLE 97939751614 No Longer Active Rj Lyons tive MIRTAZAPINE 15 MG ORAL TABLET 1/2 tab by mouth at bedtime. 03/13 MIRTAZAPINE 57147242630 No Longer Active Tesfaye Sherman MD Active BACTRIM DS 800-160 MG ORAL TABLET 1 tab by mouth twice daily 201 04/09/01 TRIMETHOPRIM-SULFAMETHOXAZOLE 77449947011 No Longer Active Umer Sherman MD Active PRAMIPEXOLE DIHYDROCHLORIDE 0.125 MG ORAL TABLET take 1 tablet po qhs for restless leg syndrome. PRAMIPEXOLE DIHYDROCHLORI DE 52817543708 No Longer Active Tesfaye Sherman MD Active MAGNESIUM 400 MG ORAL TABLET 1 tab po daily MAGNE SIUM 17406761967 Active Chelsea Cardenas APRN Active SUDAFED 24 HOUR 240 MG ORAL TABLET EXTENDED RELEASE 24 HOUR 1 tab po daily PSEUDOEPHEDRINE HCL 24658120077 Active Chelsea Cardenas APRN Active CETIRIZINE HCL 5 MG ORAL TABLET Take 1 tablet by mouth daily CETIRIZINE HCL 47621501711 No Longer Active Chelsea Cardenas APRN Activ e TRIMETHOPRIM 100 MG ORAL TABLET 1/2 qd TRIM ETHOPRIM 91365167297 No Longer Active Chelsea Cardenas APRN Active BACTRIM DS 800-160 MG ORAL TABLET 1 tab by mouth twice daily 201 04/04/11 TRIMETHOPRIM-SULFAMETHOXAZOLE 82411822060 No Longer Active Umer Sherman MD Active BACTRIM DS 800-160 MG ORAL TABLET 1 tab by mouth twice daily X 10 DAYS TRIMETHOPRIM-SULFAMETHOXAZOLE 78152737193 No Longer Active Tesfaye Sherman MD Active AMOXICILLIN 500 MG ORAL CAPSULE 1 cap by mouth three times a day AMOXICILLIN 27947740174 No Longer Active Adriana Arredondo Active MECLIZINE HCL 25 MG ORAL TABLET one tab po qday prn dizziness 09/08 MECLIZINE HCL 98118665076 Active Tesfaye Sherman MD Active B-12 1000 MCG ORAL LOZENGE 1 tab po daily CYANO COBALAMIN 83878280945 Active Tesfaye Sherman MD Active VITAMIN D3 2000 UNIT ORAL TABLET 1 daily, for vitamin D deficien cy CHOLECALCIFEROL 95610815675 No Longer Active Tesfaye Sherman MD Active TIZANIDINE HCL 2 MG ORAL TABLET take 1-2 tablet by mo ut every day at bedtime at 9pm PRN TIZANIDINE HCL 97319578530 Active Tesfaye hewitt MD Active ZITHROMAX 250 MG ORAL TABLET 2 po today, then 1 po q days 2-5 20 15/02/10 AZITHROMYCIN 53970748747 No Longer Active Tesfaye Sherman MD Active BACTRIM DS 800-160 MG ORAL TABLET 1 tab by mouth twice daily 201 03/03/23 TRIMETHOPRIM-SULFAMETHOXAZOLE 11881104270 No Longer Active Umer Sherman MD Active PRELIEF 340 (65-50) MG (CA-P) ORAL TABLET CALCIUM GLYCEROPHOSPHATE 78598381250 Active Tesfaye Sherman MD Acti ve [facility] NIACIN FLUSH FREE 400-100 MG ORAL CAPSULE 1 daily NIACIN-INOSITOL 98918762677 Active Kayla Cooper MD Activ e DIFLUCAN 150 MG ORAL TABLET 1 qd FLUCONAZOL E 56661564262 No Longer Active Kayla Cooper MD Active FLUTICASONE PROPIONATE 50 MCG/ACT NASAL SUSPENSION 1 spray each nostril twice daily FLUTICASONE PROPIONATE 03498746075 Active Umer Sherman MD Active LOVASTATIN 20 MG ORAL TABLET Take 1 tablet by mouth daily LOVASTATIN 50343656695 No Longer Active Tesfaye Sherman MD Acti ve MELOXICAM 7.5 MG ORAL TABLET 1 tablet by mouth daily 2 MELOXICAM 35744887738 No Longer Active Tesfaye Sherman MD Acti ve GABAPENTIN 300 MG ORAL CAPSULE Take two tablets by mouth every e vening GABAPENTIN 79023906107 No Longer Active Edith Burch MD A ctive CLONAZEPAM 0.5 MG ORAL TABLET Take one tablet in the m orning and 1.5 tablet at 7pm CLONAZEPAM 33930448090 Active Kayla Cooper MD Active BACLOFEN 10 MG ORAL TABLET Take one tablet by mouth three times a d ay BACLOFEN 75589144907 Active Kayla Cooper MD Active GABAPENTIN 300 MG ORAL CAPSULE Take two tablets by mouth every e vening GABAPENTIN 300 MG ORAL CAPSULE 570858 GABAPENTIN I nactive MELOXICAM 7.5 MG ORAL TABLET 1 tablet by mouth daily 2 MELOXICAM 7.5 MG ORAL TABLET 238674 MELOXICAM Inactive LOVASTATIN 20 MG ORAL TABLET Take 1 tablet by mouth daily LOVASTATIN 20 MG ORAL TABLET 410284 LOVASTATIN Inactive DIFLUCAN 150 MG ORAL TABLET 1 qd DIFLUCAN 150 MG ORAL TABLET 273916 FLUCONAZOLE Inactive VITAMIN D3 2000 UNIT ORAL TABLET 1 daily, for vitamin D deficien cy VITAMIN D3 2000 UNIT ORAL TABLET CHOLECALCIFEROL Inactive AMOXICILLIN 500 MG ORAL CAPSULE 1 cap by mouth three times a day AMOXICILLIN 500 MG ORAL CAPSULE 192240 AMOXICILLIN Inactive BACTRIM DS 800-160 MG ORAL TABLET 1 tab by mouth twice daily X 10 DAYS BACTRIM DS 800-160 MG ORAL TABLET 189121 TRIMETHOPRIM-SULFAMETHOXAZOLE Inactive TRIMETHOPRIM 100 MG ORAL TABLET 1/2 qd 7 TRIMETHOPRIM 100 MG ORAL TABLET 987359 TRIMETHOPRIM Inactive CETIRIZINE HCL 5 MG ORAL TABLET Take 1 tablet by mouth daily CETIRIZINE HCL 5 MG ORAL TABLET 0929154 CETIRIZINE HCL Inactive PRAMIPEXOLE DIHYDROCHLORIDE 0.125 MG ORAL TABLET take 1 tablet po qhs for restless leg syndrome. PRAMIPEXOLE DIHYD ROCHLORIDE 0.125 MG ORAL TABLET 531043 PRAMIPEXOLE DIHYDROCHLORIDE Inactive MIRTAZAPINE 15 MG ORAL TABLET 1/2 tab by mouth at bedtime. 03/13 MIRTAZAPINE 15 MG ORAL TABLET 652716 MIRTAZAPINE In active DIFLUCAN 100 MG ORAL TABLET 1 tablet by mouth daily X 3 DAYS 201 04/09/01 DIFLUCAN 100 MG ORAL TABLET 153893 FLUCONAZOLE Inac tive DIFLUCAN 100 MG ORAL TABLET 1 tablet by mouth every other da y for 2 doses DIFLUCAN 100 MG ORAL TABLET 708597 FLUCONAZOLE Inactive CEFTIN 250 MG ORAL TABLET 1 tablet twice daily x 7 days CEFTIN 250 MG ORAL TABLET 943992 CEFUROXIME AXETIL Inactive CYMBALTA 30 MG ORAL CAPSULE DELAYED RELEASE PARTICLES 1 cap by mouth daily with 60mg CYMBALTA 30 MG ORAL CAPSULE DELAYED RELEASE PARTICLES 583078 DULOXETINE HCL Inactive CYMBALTA 60 MG ORAL CAPSULE DELAYED RELEASE PARTICLES Take 1 tablet by mouth daily CYMBALTA 60 MG ORAL CAPSULE DELAYED RELEA SE PARTICLES 916689 DULOXETINE HCL Inactive FOSAMAX 70 MG ORAL TABLET 1 po qweek. Take 30min prio r to first food/drink. Avoid lying down x 1 hour. FOSAMAX 70 MG ORAL TA BLET 852728 ALENDRONATE SODIUM Inactive DIFLUCAN 100 MG ORAL TABLET 1 tablet by mouth daily 20 19/08/26 DIFLUCAN 100 MG ORAL TABLET 951878 FLUCONAZOLE Inactive PREDNISONE 20 MG ORAL TABLET 1 tab twice daily for 3 d ay, then one daily for three days PREDNISONE 20 MG ORAL TABLET 452725 PREDNIS ONE Inactive BACTRIM DS 800-160 MG ORAL TABLET 1 tab by mouth twice daily 201 03/03/23 BACTRIM DS 800-160 MG ORAL TABLET 720304 TRIMETHOPRIM-SULFAMETHOXAZOLE Inactive ZITHROMAX 250 MG ORAL TABLET 2 po today, then 1 po q days 2-5 20 15/02/10 ZITHROMAX 250 MG ORAL TABLET 593559 AZITHROMYCIN Mayela ctive BACTRIM DS 800-160 MG [...] daily 19/03/05 DIFLUCAN 100 MG ORAL TABLET 461206 FLUCONAZOLE Inactive BACTRIM DS 800-160 MG ORAL TABLET 1 tab by mouth twice daily 201 05/10/28 BACTRIM DS 800-160 MG ORAL TABLET 784598 TRIMETHOPRIM-SULFAMETHOXAZOLE Inactive AMOXICILLIN 500 MG ORAL CAPSULE 1 cap by mouth three times a day AMOXICILLIN 500 MG ORAL CAPSULE 487715 AMOXICILLIN Inactive Advance Directives Directive Description Start Date PERMISSION TO SHARE DISCUSSED WITH PATIENT -- NO DECISION MADE DURABLE POWER OF SEARCH SPECIALIST FOR HEALTHCARE DISCUSED WITH PATIENT -- FULL [...] weight E&M 126 [lb_av] Weight Measure d Diagnostic Results Date Name Value Unit Range Description Chart Maintenance: hemoccult added to fl ow sheet - Chemistry occult blood, stool (E&M) Negative Lab Report: CBC W/DIFF - Hematology hemoglobin, blood 15.8 g/dL 12.0-16.0 hematocrit, blood 46.5 % 37.0-47.0 mean corpuscular volume, RBC 95 fL 80-97 mean corpuscular hemoglobin, RBC 32.3 pg 27. 0-31.2 mean corpuscular hemoglobin concentration, RBC 34.0 G/DL % 31.8-35.4 red blood cell distribution width 11.7 % 11 .6-14.8 platelet count 349 10^3/MM^3 10*3/mm3 547-126 1699/06/14 erythrocyte (RBC) count 4.91 10^6/MM^3 10*6/mm3 3.80-5.8 0 lymphocytes as percent of blood leukocytes 28.7 % 20.5-51.1 monocytes as percent of blood leukocytes 8.7 % 1.7-9.3 neutrophils as percent of blood leukocytes 56.3 % 42.2-75.2 leukocyte count, blood 8.8 10^3/MM^3 10*3/mm3 4.6-10.2 Lab Report: Comp. Metabolic Panel, Lipid Panel, Thyroid Stimulating Horm ... - Chemistry sodium, serum 144 mmol/L 604-372 7477/06/14 creatinine, serum 0.67 mg/dL 0.55-1.30 alanine aminotransferase (SGPT), serum 24 U/L 12-78 aspartate aminotransferase (SGOT), serum 15 U/L 15-37 calcium, serum 9.3 mg/dL 8.5-10.1 bilirubin, serum, total 0.50 mg/dL 0.00-1.00 cholesterol, serum 268 mg/dL 875-634 1619/06/14 triglyceride, serum, fasting 126 mg/dL 30-200 HDL [...] nitrogen, blood 9 mg/dL 7-18 Lab Report: Comp. Metabolic Panel, [facility] - Chemistry sodium, serum 141 mmol/L 147-534 9433/01/26 carbon dioxide, venous blood 29.5 mmol/L 21.0-32 [...] Negative glucose, urine, semiquantitative Negative Neg ative appearance, urine [...] mg/dL Encounters Code Encounter Date Provider Facility CPT-57355 Level 4 Est. Patient 22:18:12 CDT Tesfaye pearson MD [facility] CPT-17934 Level 4 Est. Patient 14:44:33 HIM DIRECTOR Tesfaye pearson MD [facility] CPT-21979 Level 4 Est. Patient 13:55:29 HIM DIRECTOR Tesfaye pearson MD [facility] CPT-16718 Level 4 Est. Patient 17:07:34 HIM DIRECTOR Tesfaye pearson MD [facility]-08653 Level 4 Est. Patient 13:56:54 CDT Tesfaye pearson MD [facility]-67127 Level 4 Est. Patient 13:24:25 CDT Chelsea sanz APRN [facility] CPT-33478 Level 4 Est. Patient 09:14:56 CDT Tesfaye pearson MD [facility]-00025 Level 4 Est. Patient 18:40:25 HIM DIRECTOR Tesfaye pearson MD [facility] CPT-85943 Level 4 Est. Patient 18:13:07 HIM DIRECTOR Tesfaye pearson MD [facility]-53716 Level 3 Est. Patient 10:46:32 CDT Rj cotto DO [facility] CPT-66988 Level 4 Est. Patient 20:19:25 CDT Tesfaye pearson MD [facility] CPT-00133 Level 3 Est. Patient 09:07:31 CDT Tesfaye pearson MD [facility]-49614 Level 4 Est. Patient 13:12:56 CDT Tesfaye pearson MD [facility]-45243 Level 4 Est. Patient 21:24:55 HIM DIRECTOR Tesfaye pearson MD [facility]-85504 Level 3 Est. Patient 13:45:04 HIM DIRECTOR Tesfaye pearson MD [facility] CPT-49758 Level 4 Est. Patient 13:50:45 CDT Tesfaye pearson MD [facility] CPT-39748 Level 3 Est. Patient 10:16:10 CDT Tesfaye pearson MD [facility] CPT-33363 Level 3 Est. Patient 16:36:07 HIM DIRECTOR Kayla jameson MD [facility] CPT-52931 Level 4 Est. Patient 16:00:14 HIM DIRECTOR Tesfaye pearson MD [facility] CPT-27967 Level 4 Est. Patient 11:02:24 HIM DIRECTOR Tesfaye pearson MD [facility] CPT-92560 Level 3 Est. Patient 20:21:43 HIM DIRECTOR Kayla jameson MD [facility] CPT-32598 Level 3 Est. Patient 13:27:28 HIM DIRECTOR Kayla jameson MD [facility] CPT-88100 Level 4 Est. Patient 15:57:17 HIM DIRECTOR Tesfaye pearson MD [facility] CPT-25964 Level 3 New Patient 13:25:47 CDT Tesfaye kidd MD [facility] CPT-65273 Level 3 New Patient 17:22:21 CDT Kayla angel MD [facility] Procedures Code Procedure Name Date Entry Date Standard Desc ription CPT-G0439 Subsequent Annual Wellness Exam 22:18:11 CDT CPT-04098 Bone Density - XRAY USE ONLY 11:43:58 CDT 2 CPT-08576 Bone Density - XRAY USE ONLY 10:05:16 CDT 2 CPT-16273 Prv Med New Pt 40-64 yrs 18:19:25 CDT 2016 CPT-46679 Foot, right, comp min 3V - XRAY USE ONLY 10:38:34 CDT CPT-G0439 Subsequent Annual Wellness Exam 13:55:04 CDT CPT-G0438 Initial Annual Wellness Exam 11:23:17 CD T CPT-J2930 Solu Medrol 125 mg (Methyl Prednisolone Sodium Succinate) 17:29:12 HIM DIRECTOR CPT-62748 Abx/Therapy Injection 17:29:11 HIM DIRECTOR CPT-J2930 Solu Medrol 125 mg (Methyl Prednisolone Sodium Succinate) 12:34:38 HIM DIRECTOR CPT-J3420 Vitamin B12 1000mcg (Cyanocobalamin) 09:12:55 CDT CPT-J3420 Vitamin B12 1000mcg (Cyanocobalamin) 16:28:06 HIM DIRECTOR CPT-66776 Venipuncture Draw Fee 08:39:53 CDT CPT-J3420 Vitamin B12 1000mcg (Cyanocobalamin) 08:46:22 CDT CPT-44949 Abx/Therapy Injection 08:46:22 CDT CPT-J3420 Vitamin B12 1000mcg (Cyanocobalamin) 08:41:26 CDT CPT-72711 Abx/Therapy Injection 08:41:26 CDT CPT-J3420 Vitamin B12 1000mcg (Cyanocobalamin) 08:57:15 CDT CPT-13294 Abx/Therapy Injection 08:57:15 CDT CPT-J3420 Vitamin B12 1000mcg (Cyanocobalamin) 10:59:03 CDT CPT-42917 Abx/Therapy Injection 10:59:03 CDT CPT-J3420 Vitamin B12 1000mcg (Cyanocobalamin) 15:05:39 CDT CPT-18080 Abx/Therapy Injection 15:05:39 CDT CPT-J3420 Vitamin B12 1000mcg (Cyanocobalamin) 13:50:45 CDT CPT-J3420 Vitamin B12 1000mcg (Cyanocobalamin) 08:48:55 CDT CPT-93173 Abx/Therapy Injection 08:48:55 CDT CPT-J3420 Vitamin B12 1000mcg (Cyanocobalamin) 09:14:54 CDT CPT-47106 Abx/Therapy Injection 09:14:54 CDT CPT-J3420 Vitamin B12 1000mcg (Cyanocobalamin) 09:06:06 CDT CPT-25072 Abx/Therapy Injection 09:06:06 CDT CPT-J3420 Vitamin B12 1000mcg (Cyanocobalamin) 09:49:14 CDT CPT-12447 Abx/Therapy Injection 09:49:14 CDT CPT-J3420 Vitamin B12 1000mcg (Cyanocobalamin) 09:10:30 HIM DIRECTOR CPT-74876 Abx/Therapy Injection 09:10:30 HIM DIRECTOR CPT-J3420 Vitamin B12 1000mcg (Cyanocobalamin) 09:11:07 HIM DIRECTOR CPT-95368 Abx/Therapy Injection 09:11:07 HIM DIRECTOR CPT-J3420 Vitamin B12 1000mcg (Cyanocobalamin) 09:57:03 HIM DIRECTOR CPT-79096 Abx/Therapy Injection 09:57:03 HIM DIRECTOR CPT-J3420 Vitamin B12 1000mcg (Cyanocobalamin) 09:23:21 HIM DIRECTOR CPT-38476 Abx/Therapy Injection 09:23:21 HIM DIRECTOR CPT-60490 Urine Dip (Floor Use Only) 20:21:44 HIM DIRECTOR 201 02/12/11 CPT-98659 UA Dip Auto (Floor Use Only) 10:04:39 HIM DIRECTOR 2 CPT-32794 Urine Dip (Floor Use Only) 13:27:28 HIM DIRECTOR 201 02/12/01 CPT-87617 Bladder Scan 13:27:28 HIM DIRECTOR CPT-95561 Abd single AP View 14:30:51 HIM DIRECTOR CPT-OV Office Visit 10:15:43 CDT CPT-86449 Urine Dip (Floor Use Only) 17:22:21 CDT 201 02/09/02 CPT-73177 Bladder Scan 17:22:21 CDT
--- OUTSIDE RECORDS SUMMARY | 2020-05-05 12:15 | XMS REPORT | Clinical Summary ---
Author Author Jeri Hanley Organization [employer] Address Unknown Phone Unavailable Allergies, Adverse Reactions, [...] 1 tablet by mouth daily FLU CONAZOLE [id number] No Longer Active Tesfaye Sherman MD Active BACTRIM DS 800-160 MG TAB 1 tab by mouth twice daily 2 TRIMETHOPRIM-SULFAMETHOXAZOLE 08172322208 No Longer Active Tesfaye Sherman MD Active BACTRIM DS 800-160 MG TAB 1 tab by mouth twice daily 2 TRIMETHOPRIM-SULFAMETHOXAZOLE 63913228890 No Longer Active Tesfaye Sherman MD Active DIFLUCAN 150 MG TAB 1 tablet by mouth daily FLU CONAZOLE 42176585942 No Longer Active Tesfaye Sherman MD Active BACTRIM DS 800-160 MG TAB 1 tab by mouth twice daily 2 TRIMETHOPRIM-SULFAMETHOXAZOLE 26245521768 No Longer Active Tesfaye Sherman MD Active ROPINIROLE HCL 0.25 MG ORAL TABS 1 TAB PO Q HS ROPINIROLE HCL 79185531992 Active Tesfaye Sherman MD Active CYMBALTA 30 MG CPEP 1 cap by mouth daily with 60mg DULOXETINE HCL 72997504561 Active Tesfaye Sherman MD Active CEFTIN 250 MG TAB 1 tablet twice daily x 7 days 11/19 CEFUROXIME AXETIL 56149296507 No Longer Active Tesfaye Sherman MD Acti ve DIFLUCAN 100 MG TABS 1 tablet by mouth every other day for 2 dos es FLUCONAZOLE 89446440565 No Longer Active Tesfaye Sherman MD Active DIFLUCAN 100 MG TAB 1 tablet by mouth daily X 3 DAYS 2 FLUCONAZOLE 55835191627 No Longer Active Rj Moss DO Active MIRTAZAPINE 15 MG ORAL TABS 1/2 tab by mouth at bedtime. MIRTAZAPINE 38282505543 No Longer Active Tesfaye Sherman MD Acti ve BACTRIM DS 800-160 MG TAB 1 tab by mouth twice daily 2 TRIMETHOPRIM-SULFAMETHOXAZOLE 88392652752 No Longer Active Tesfaye Sherman MD Active PRAMIPEXOLE DIHYDROCHLORIDE 0.125 MG ORAL TABS take 1 tablet po qhs for restless leg syndrome. PRAMIPEXOLE DIHYDROCHLORIDE 89258789479 No Longer Active Tesfaye Sherman MD Active MAGNESIUM 400 MG ORAL TABS 1 tab po daily MAGNESI UM 50029693010 Active Chelsea Barba APRN Active SUDAFED 24 HOUR 240 MG ORAL LE95I-HNV 1 tab po daily PSEUDOEPHEDRINE HCL 40285514515 Active Chelsea Barba APRN A ctive CETIRIZINE HCL 5 MG TABS Take 1 tablet by mouth daily CETIRIZINE HCL 19220700471 No Longer Active Chelsea Barba APRN Acti ve TRIMETHOPRIM 100 MG TABS 1/2 qd TRIMETHOPRIM 10395449124 No Longer Active Chelsea Barba APRN Active BACTRIM DS 800-160 MG TAB 1 tab by mouth twice daily 2 TRIMETHOPRIM-SULFAMETHOXAZOLE 48813325920 No Longer Active Tesfaye Sherman MD Active BACTRIM DS 800-160 MG TAB 1 tab by mouth twice daily X 10 DAYS 2 TRIMETHOPRIM-SULFAMETHOXAZOLE 16874366582 No Longer Active Umer Sherman MD Active AMOXICILLIN 500 MG CAPS 1 cap by mouth three times a day AMOXICILLIN 98322899507 No Longer Active Adriana Arredondo Active MECLIZINE HCL 25 MG TAB one tab po qday prn dizziness MECLIZINE HCL 98493392662 Active Tesfaye Sherman MD Active B-12 1000 MCG ORAL LOZG 1 tab po daily CYANOCOBAL STANTON 63294513974 Active Tesfaye Sherman MD Active VITAMIN D3 2000 UNIT TABS 1 daily, for vitamin D deficiency 2014 CHOLECALCIFEROL 66004025021 No Longer Active Tesfaye Sherman MD Active TIZANIDINE HCL 2 MG TABS take 1-2 tablet by mouth at bedtime at 9pm PRN TIZANIDINE HCL 31875471653 Active Tesfaye Higgins D Active ZITHROMAX 250 MG TAB 2 po today, then 1 po q days 2-5 AZITHROMYCIN 87772635914 No Longer Active Tesfaye Sherman MD Acti ve BACTRIM DS 800-160 MG TAB 1 tab by mouth twice daily 2 TRIMETHOPRIM-SULFAMETHOXAZOLE 77072180601 No Longer Active Tesfaye Sherman MD Active PRELIEF 340 (65-50) MG (CA-P) ORAL TABS CALCIUM GLYCEROPHOSPHATE 47630718469 Active Tesfaye Sherman MD Active [facility] NIACIN FLUSH FREE 400-100 MG CAPS 1 daily NIACIN-INOSITOL 73672949225 Active Kayla Cooper MD Active DIFLUCAN 150 MG TABS 1 qd FLUCONAZOLE 67247 137245 No Longer Active Kayla Cooper MD Active FLUTICASONE PROPIONATE 50 MCG/ACT SUSP 1 spray each nostril twice daily FLUTICASONE PROPIONATE 08576146062 Active Tesfaye armenta MD Active LOVASTATIN 20 MG TABS Take 1 tablet by mouth daily LOVASTATIN 46467951220 No Longer Active Tesfaye Sherman MD Active MELOXICAM 7.5 MG TABS 1 tablet by mouth daily M ELOXICAM 50075143090 No Longer Active Tesfaye Sherman MD Active GABAPENTIN 300 MG CAPS Take two tablets by mouth every evening GABAPENTIN 58172278802 No Longer Active Edith Burch MD Active OXYCODONE-ACETAMINOPHEN 5-325 MG TABS Take one tablet by mouth every 6 hours as needed. Max 12 tabs/day as needed OXYCODONE-ACETAMINOP HEN 29543763912 Active Tesfaye Sherman MD Active CYMBALTA 60 MG CPEP Take 1 tablet by mouth daily D ULOXETINE HCL 69880655020 Active Kayla Cooper MD Active CLONAZEPAM 0.5 MG TABS Take one tablet in the morning and 1.5 table t at 7pm CLONAZEPAM 38028754829 Active Kayla Cooper MD Active BACLOFEN 10 MG TABS Take one tablet by mouth three times a day BACLOFEN 92812355772 Active J John Cooper MD Active GABAPENTIN 300 MG CAPS Take two tablets by mouth every evening GABAPENTIN 300 MG CAPS 973240 GABAPENTIN Inactive MELOXICAM 7.5 MG TABS 1 tablet by mouth daily MELOXICAM 7.5 MG TABS 619044 MELOXICAM Inactive LOVASTATIN 20 MG TABS Take 1 tablet by mouth daily 201 02/12/20 LOVASTATIN 20 MG TABS 389256 LOVASTATIN Inactive DIFLUCAN 150 MG TABS 1 qd DIFLUCAN 150 MG T ABS 159840 FLUCONAZOLE Inactive VITAMIN D3 2000 UNIT TABS 1 daily, for vitamin D deficiency 2014 VITAMIN D3 2000 UNIT TABS CHOLECALCIFEROL Inacti ve AMOXICILLIN 500 MG CAPS 1 cap by mouth three times a day AMOXICILLIN 500 MG CAPS 040524 AMOXICILLIN Inactive BACTRIM DS 800-160 MG TAB 1 tab by mouth twice daily X 10 DAYS 2 BACTRIM DS 800-160 MG TAB 246326 TRIMETHOPRIM-SULFAMETH OXAZOLE Inactive TRIMETHOPRIM 100 MG TABS 1/2 qd TRIMETHOPRI M 100 MG TABS 775377 TRIMETHOPRIM Inactive CETIRIZINE HCL 5 MG TABS Take 1 tablet by mouth daily CETIRIZINE HCL 5 MG TABS 0857064 CETIRIZINE HCL Inactive PRAMIPEXOLE DIHYDROCHLORIDE 0.125 MG ORAL TABS take 1 tablet po qhs for restless leg syndrome. PRAMIPEXOLE DIHYDROC HLORIDE 0.125 MG ORAL TABS 389083 PRAMIPEXOLE DIHYDROCHLORIDE Inactive MIRTAZAPINE 15 MG ORAL TABS 1/2 tab by mouth at bedtime. MIRTAZAPINE 15 MG ORAL TABS 765920 MIRTAZAPINE Inactive DIFLUCAN 100 MG TAB 1 tablet by mouth daily X 3 DAYS 2 DIFLUCAN 100 MG TAB 640629 FLUCONAZOLE Inactive DIFLUCAN 100 MG TABS 1 tablet by mouth every other day for 2 dos es DIFLUCAN 100 MG TABS 19760711 FLUCONAZOLE Inactive CEFTIN 250 MG TAB 1 tablet twice daily x 7 days 11/19 CEFTIN 250 MG TAB 098374 CEFUROXIME AXETIL Inactive BACTRIM DS 800-160 MG TAB 1 tab by mouth twice daily 2 BACTRIM DS 800-160 MG TAB 511681 TRIMETHOPRIM-SULFAMETHOXAZOLE Inac tive ZITHROMAX 250 MG TAB 2 po today, then 1 po q days 2-5 ZITHROMAX 250 MG TAB 7668671 AZITHROMYCIN Inactive BACTRIM DS 800-160 MG TAB 1 tab by mouth twice daily 2 BACTRIM DS 800-160 MG TAB 19830105 TRIMETHOPRIM-SULFAMETHOXAZOLE Inac tive BACTRIM DS 800-160 MG TAB 1 tab by mouth twice daily 2 BACTRIM DS 800-160 MG TAB 870380 TRIMETHOPRIM-SULFAMETHOXAZOLE Inac tive BACTRIM DS 800-160 MG TAB 1 tab by mouth twice daily 2 BACTRIM DS 800-160 MG TAB 19830105 TRIMETHOPRIM-SULFAMETHOXAZOLE Inac tive DIFLUCAN 150 MG TAB 1 tablet by mouth daily DIFLUCAN 150 MG TAB 19760712 FLUCONAZOLE Inactive BACTRIM DS 800-160 MG TAB 1 tab by mouth twice daily 2 BACTRIM DS 800-160 MG TAB 818882 TRIMETHOPRIM-SULFAMETHOXAZOLE Inac tive BACTRIM DS 800-160 MG [...] mg/dL Encounters Code Encounter Date Provider Facility CPT-55814 Level 4 Est. Patient 09:14:56 CDT Tesfaye pearson MD [facility] CPT-39990 Level 4 Est. Patient 18:40:25 COLLATERAL SPECIALIST Tesfaye pearson MD [facility] CPT-20960 Level 4 Est. Patient 18:13:07 COLLATERAL SPECIALIST Tesfaye pearson MD [facility]-01413 Level 3 Est. Patient 10:46:32 CDT Rj cotto DO [facility] CPT-62676 Level 4 Est. Patient 20:19:25 CDT Tesfaye pearson MD [facility]-21090 Level 3 Est. Patient 09:07:31 CDT Tesfaye pearson MD [facility]-66222 Level 4 Est. Patient 13:12:56 CDT Tesfaye pearson MD [facility]-31138 Level 4 Est. Patient 21:24:55 COLLATERAL SPECIALIST Tesfaye pearson MD [facility]-13982 Level 3 Est. Patient 13:45:04 COLLATERAL SPECIALIST Tesfaye pearson MD [facility] CPT-86935 Level 4 Est. Patient 13:50:45 CDT Tesfaye pearson MD [facility] CPT-32853 Level 3 Est. Patient 10:16:10 CDT Tesfaye pearson MD [facility] CPT-67128 Level 3 Est. Patient 16:36:07 COLLATERAL SPECIALIST Kayla jameson MD [facility]-04231 Level 4 Est. Patient 16:00:14 COLLATERAL SPECIALIST Tesfaye pearson MD [facility]-93209 Level 4 Est. Patient 11:02:24 COLLATERAL SPECIALIST Tesfaye pearson MD [facility]-73159 Level 3 Est. Patient 20:21:43 COLLATERAL SPECIALIST Kayla jameson MD [facility]-24015 Level 3 Est. Patient 13:27:28 COLLATERAL SPECIALIST Kayla jameson MD [facility]-72323 Level 4 Est. Patient 15:57:17 COLLATERAL SPECIALIST Tesfaye pearson MD [facility] CPT-64779 Level 3 New Patient 13:25:47 CDT Tesfaye kidd MD [facility] CPT-01892 Level 3 New Patient 17:22:21 CDT Kayla angel MD [facility] Procedures Code Procedure Name Date Entry Date Standard Desc ription CPT-G0439 Subsequent Annual Wellness Exam 13:55:04 CDT CPT-G0438 Initial Annual Wellness Exam 11:23:17 CD T CPT-J2930 Solu Medrol 125 mg (Methyl Prednisolone Sodium Succinate) 17:29:12 COLLATERAL SPECIALIST CPT-15376 Abx/Therapy Injection 17:29:11 COLLATERAL SPECIALIST CPT-J2930 Solu Medrol 125 mg (Methyl Prednisolone Sodium Succinate) 12:34:38 COLLATERAL SPECIALIST CPT-J3420 Vitamin B12 1000mcg (Cyanocobalamin) 09:12:55 CDT CPT-J3420 Vitamin B12 1000mcg (Cyanocobalamin) 16:28:06 COLLATERAL SPECIALIST CPT-55139 Venipuncture Draw Fee 08:39:53 CDT CPT-J3420 Vitamin B12 1000mcg (Cyanocobalamin) 08:46:22 CDT CPT-65213 Abx/Therapy Injection 08:46:22 CDT CPT-J3420 Vitamin B12 1000mcg (Cyanocobalamin) 08:41:26 CDT CPT-86532 Abx/Therapy Injection 08:41:26 CDT CPT-J3420 Vitamin B12 1000mcg (Cyanocobalamin) 08:57:15 CDT CPT-29150 Abx/Therapy Injection 08:57:15 CDT CPT-J3420 Vitamin B12 1000mcg (Cyanocobalamin) 10:59:03 CDT CPT-37227 Abx/Therapy Injection 10:59:03 CDT CPT-J3420 Vitamin B12 1000mcg (Cyanocobalamin) 15:05:39 CDT CPT-04370 Abx/Therapy Injection 15:05:39 CDT CPT-J3420 Vitamin B12 1000mcg (Cyanocobalamin) 13:50:45 CDT CPT-J3420 Vitamin B12 1000mcg (Cyanocobalamin) 08:48:55 CDT CPT-63525 Abx/Therapy Injection 08:48:55 CDT CPT-J3420 Vitamin B12 1000mcg (Cyanocobalamin) 09:14:54 CDT CPT-15450 Abx/Therapy Injection 09:14:54 CDT CPT-J3420 Vitamin B12 1000mcg (Cyanocobalamin) 09:06:06 CDT CPT-95981 Abx/Therapy Injection 09:06:06 CDT CPT-J3420 Vitamin B12 1000mcg (Cyanocobalamin) 09:49:14 CDT CPT-24550 Abx/Therapy Injection 09:49:14 CDT CPT-J3420 Vitamin B12 1000mcg (Cyanocobalamin) 09:10:30 COLLATERAL SPECIALIST CPT-89715 Abx/Therapy Injection 09:10:30 COLLATERAL SPECIALIST CPT-J3420 Vitamin B12 1000mcg (Cyanocobalamin) 09:11:07 COLLATERAL SPECIALIST CPT-74574 Abx/Therapy Injection 09:11:07 COLLATERAL SPECIALIST CPT-J3420 Vitamin B12 1000mcg (Cyanocobalamin) 09:57:03 COLLATERAL SPECIALIST CPT-41040 Abx/Therapy Injection 09:57:03 COLLATERAL SPECIALIST CPT-J3420 Vitamin B12 1000mcg (Cyanocobalamin) 09:23:21 COLLATERAL SPECIALIST CPT-97911 Abx/Therapy Injection 09:23:21 COLLATERAL SPECIALIST CPT-30142 Urine Dip (Floor Use Only) 20:21:44 COLLATERAL SPECIALIST 201 02/12/11 CPT-59252 UA Dip Auto (Floor Use Only) 10:04:39 COLLATERAL SPECIALIST 2 CPT-88899 Urine Dip (Floor Use Only) 13:27:28 COLLATERAL SPECIALIST 201 02/12/01 CPT-51363 Bladder Scan 13:27:28 COLLATERAL SPECIALIST CPT-35261 Abd single AP View 14:30:51 COLLATERAL SPECIALIST CPT-OV Office Visit 10:15:43 CDT CPT-15062 Urine Dip (Floor Use Only) 17:22:21 CDT 201 02/09/02 CPT-78355 Bladder Scan 17:22:21 CDT
--- OUTSIDE RECORDS SUMMARY | 2020-05-05 12:15 | XMS REPORT | Clinical Summary ---
Author Author Talon, Jeri Wood Organization [facility] Address Unknown Phone Unavailable Allergies, Adverse Reactions, [...] bladder emptying WELL WOMAN EXAMINATION V72.31 Active Eidth schofield MD Routine gynecological examination Dyspareunia 625.0 [...] daily, for vitamin D deficiency 2014 CHOLECALCIFEROL 63947051044 No Longer Active Tesfaye Sherman MD Active TIZANIDINE HCL 2 MG TABS take 1-2 tablet by mouth at bedtime at 9pm PRN TIZANIDINE HCL 46481189386 Active Tesfaye Owusu Active ZITHROMAX 250 MG TAB 2 po today, then 1 po q days 2-5 AZITHROMYCIN 17022208043 No Longer Active Tesfaye Sherman MD Acti ve BACTRIM DS 800-160 MG TAB 1 tab by mouth twice daily 2 TRIMETHOPRIM-SULFAMETHOXAZOLE 26862391360 No Longer Active Tesfaye Sherman MD Active PRELIEF 340 (65-50) MG (CA-P) ORAL TABS CALCIUM GLYCEROPHOSPHATE 59878791605 Active Tesfaye Sherman MD Active [facility] NIACIN FLUSH FREE 400-100 MG CAPS 1 daily NIACIN-INOSITOL 77957661263 Active Kayla Cooper MD Active DIFLUCAN 150 MG TABS 1 qd FLUCONAZOLE 16274 181670 No Longer Active Kayla Cooper MD Active FLUTICASONE PROPIONATE 50 MCG/ACT SUSP 1 spray each nostril twice daily FLUTICASONE PROPIONATE 64518857663 Active Tesfaye armenta MD Active LOVASTATIN 20 MG TABS Take 1 tablet by mouth daily LOVASTATIN 87470635178 No Longer Active Tesfaye Sherman MD Active MELOXICAM 7.5 MG TABS 1 tablet by mouth daily M ELOXICAM 32568180295 No Longer Active Tesfaye Sherman MD Active GABAPENTIN 300 MG CAPS Take two tablets by mouth every evening GABAPENTIN 25218246513 No Longer Active Edith Burch MD Active TRIMETHOPRIM 100 MG TABS 1/2 qd TRIMETHOPRIM 6703751 3001 Active Kayla Cooper MD Active OXYCODONE-ACETAMINOPHEN 5-325 MG TABS Take one tablet by mouth every 6 hours as needed. Max 12 tabs/day as needed OXYCODONE-ACETAMINOP HEN 03589031519 Active Tesfaye Sherman MD Active CYMBALTA 60 MG CPEP Take 1 tablet by mouth daily D ULOXETINE HCL 05608270630 Active Kayla Cooper MD Active CLONAZEPAM 0.5 MG TABS Take one tablet in the morning and 1.5 table t at 7pm CLONAZEPAM 39294984160 Active Kayla Cooper MD Active CETIRIZINE HCL 5 MG TABS Take 1 tablet by mouth daily CETIRIZINE HCL 13439858827 Active Kayla Cooper MD Active BACLOFEN 10 MG TABS Take one tablet by mouth three times a day BACLOFEN 05286623511 Active Kayla Cooper MD Active GABAPENTIN 300 MG CAPS Take two tablets by mouth every evening GABAPENTIN 300 MG CAPS 531209 GABAPENTIN Inactive MELOXICAM 7.5 MG TABS 1 tablet by mouth daily MELOXICAM 7.5 MG TABS 894578 MELOXICAM Inactive LOVASTATIN 20 MG TABS Take 1 tablet by mouth daily 201 02/12/20 LOVASTATIN 20 MG TABS 914531 LOVASTATIN Inactive DIFLUCAN 150 MG TABS 1 qd DIFLUCAN 150 MG T ABS 109126 FLUCONAZOLE Inactive VITAMIN D3 2000 UNIT TABS 1 daily, for vitamin D deficiency 2014 VITAMIN D3 2000 UNIT TABS CHOLECALCIFEROL Inacti ve BACTRIM DS 800-160 MG TAB 1 tab by mouth twice daily 2 BACTRIM DS 800-160 MG TAB TRIMETHOPRIM-SULFAMETHOXAZOLE Inac tive ZITHROMAX 250 MG TAB 2 po today, then 1 po q days 2-5 ZITHROMAX 250 MG TAB 2689092 AZITHROMYCIN Inactive Advance Directives Directive Description Start [...] Panel - Chemistry sodium, serum 138 mmol/L 131-546 6545/10/20 potassium, serum 4.5 mmol/L 3.5-5.2 chloride, serum [...] 0.90 mg/dL 0.00-1.00 cholesterol, serum 237 mg/dL 536-773 4868/10/20 triglyceride, serum, fasting 71 mg/dL 30-200 HDL [...] Panel - Chemistry cholesterol, serum 221 mg/dL 288-017 9337/01/23 triglyceride, serum, fasting 81 mg/dL 30-200 HDL [...] negative Encounters Code Encounter Date Provider Facility CPT-94381 Level 4 Est. Patient 13:50:45 CDT Tesfaye pearson MD [facility] CPT-33648 Level 3 Est. Patient 10:16:10 CDT Tesfaye pearson MD [facility] CPT-56731 Level 3 Est. Patient 16:36:07 CODY jameson MD [facility] CPT-30424 Level 4 Est. Patient 16:00:14 MANAGER TESTING Tesfaye pearson MD [facility] CPT-68986 Level 4 Est. Patient 11:02:24 MANAGER TESTING Tesfaye pearson MD [facility] CPT-52231 Level 3 Est. Patient 20:21:43 MANAGER TESTING Kayla jameson MD [facility] CPT-41199 Level 3 Est. Patient 13:27:28 MANAGER TESTING Kayla jameson MD [facility] CPT-02746 Level 4 Est. Patient 15:57:17 MANAGER TESTING Tesfaye pearson MD [facility] CPT-99486 Level 3 New Patient 13:25:47 CDT Tesfaye kidd MD [facility] CPT-99689 Level 3 New Patient 17:22:21 CDT J John angel MD [facility] Procedures Code Procedure Name Date Entry Date Standard Desc ription CPT-J3420 Vitamin B12 1000mcg (Cyanocobalamin) 10:59:03 CDT CPT-62816 Abx/Therapy Injection 10:59:03 CDT CPT-J3420 Vitamin B12 1000mcg (Cyanocobalamin) 15:05:39 CDT CPT-09803 Abx/Therapy Injection 15:05:39 CDT CPT-J3420 Vitamin B12 1000mcg (Cyanocobalamin) 13:50:45 CDT CPT-J3420 Vitamin B12 1000mcg (Cyanocobalamin) 08:48:55 CDT CPT-84056 Abx/Therapy Injection 08:48:55 CDT CPT-J3420 Vitamin B12 1000mcg (Cyanocobalamin) 09:14:54 CDT CPT-22569 Abx/Therapy Injection 09:14:54 CDT CPT-J3420 Vitamin B12 1000mcg (Cyanocobalamin) 09:06:06 CDT CPT-21342 Abx/Therapy Injection 09:06:06 CDT CPT-J3420 Vitamin B12 1000mcg (Cyanocobalamin) 09:49:14 CDT CPT-17732 Abx/Therapy Injection 09:49:14 CDT CPT-J3420 Vitamin B12 1000mcg (Cyanocobalamin) 09:10:30 MANAGER TESTING CPT-36347 Abx/Therapy Injection 09:10:30 MANAGER TESTING CPT-J3420 Vitamin B12 1000mcg (Cyanocobalamin) 09:11:07 MANAGER TESTING CPT-08274 Abx/Therapy Injection 09:11:07 MANAGER TESTING CPT-J3420 Vitamin B12 1000mcg (Cyanocobalamin) 09:57:03 MANAGER TESTING CPT-70214 Abx/Therapy Injection 09:57:03 MANAGER TESTING CPT-J3420 Vitamin B12 1000mcg (Cyanocobalamin) 09:23:21 MANAGER TESTING CPT-56772 Abx/Therapy Injection 09:23:21 MANAGER TESTING CPT-23207 Urine Dip (Floor Use Only) 20:21:44 MANAGER TESTING 201 02/12/11 CPT-23332 UA Dip Auto (Floor Use Only) 10:04:39 MANAGER TESTING 2 CPT-11064 Urine Dip (Floor Use Only) 13:27:28 MANAGER TESTING 201 02/12/01 CPT-35145 Bladder Scan 13:27:28 MANAGER TESTING CPT-59771 Abd single AP View 14:30:51 MANAGER TESTING CPT-OV Office Visit 10:15:43 CDT CPT-15856 Urine Dip (Floor Use Only) 17:22:21 CDT 201 02/09/02 CPT-50904 Bladder Scan 17:22:21 CDT
--- OUTSIDE RECORDS SUMMARY | 2020-05-05 12:15 | XMS REPORT | Clinical Summary ---
Author Author Jeri Hanley Organization [employer] Address Unknown Phone Unavailable Allergies, Adverse Reactions, [...] every other day for 2 doses FLUCONAZOLE 19115405620 Active Rj Moss DO Active CEFTIN 250 MG TAB 1 tablet twice daily x 7 days CEFUROXIME AXETIL 05903416445 Active Rj Moss DO Active DIFLUCAN 100 MG TAB 1 tablet by mouth daily X 3 DAYS 2 FLUCONAZOLE 93432248379 No Longer Active Rj Moss DO Active MIRTAZAPINE 15 MG ORAL TABS 1/2 tab by mouth at bedtime. MIRTAZAPINE 35805483732 No Longer Active Tesfaye Sherman MD Acti ve BACTRIM DS 800-160 MG TAB 1 tab by mouth twice daily 2 TRIMETHOPRIM-SULFAMETHOXAZOLE 17920136247 No Longer Active Tesfaye Sherman MD Active PRAMIPEXOLE DIHYDROCHLORIDE 0.125 MG ORAL TABS take 1 tablet po qhs for restless leg syndrome. PRAMIPEXOLE DIHYDROCHLORIDE 46046004608 No Longer Active Tesfaye Sherman MD Active MAGNESIUM 400 MG ORAL TABS 1 tab po daily MAGNESI UM 85015394969 Active Chelsea Barba APRN Active SUDAFED 24 HOUR 240 MG ORAL [id number] 1 tab po daily PSEUDOEPHEDRINE HCL 36601056807 Active Chelsea Barba APRN A ctive CETIRIZINE HCL 5 MG TABS Take 1 tablet by mouth daily CETIRIZINE HCL 26460947777 No Longer Active Chelsea Barba APRN Acti ve TRIMETHOPRIM 100 MG TABS 1/2 qd TRIMETHOPRIM 50692936793 No Longer Active Chelsea Barba APRN Active BACTRIM DS 800-160 MG TAB 1 tab by mouth twice daily 2 TRIMETHOPRIM-SULFAMETHOXAZOLE 99543546295 No Longer Active Tesfaye Sherman MD Active BACTRIM DS 800-160 MG TAB 1 tab by mouth twice daily X 10 DAYS 2 TRIMETHOPRIM-SULFAMETHOXAZOLE 07292124951 No Longer Active Umer Sherman MD Active AMOXICILLIN 500 MG CAPS 1 cap by mouth three times a day AMOXICILLIN 14312638841 No Longer Active Adriana Arredondo Active MECLIZINE HCL 25 MG TAB one tab po qday prn dizziness MECLIZINE HCL 16556396442 Active Tesfaye Sherman MD Active B-12 1000 MCG ORAL LOZG 1 tab po daily CYANOCOBAL STANTON 56162659298 Active Tesfaye Sehrman MD Active VITAMIN D3 2000 UNIT TABS 1 daily, for vitamin D deficiency 2014 CHOLECALCIFEROL 31220556282 No Longer Active Tesfaye Sherman MD Active TIZANIDINE HCL 2 MG TABS take 1-2 tablet by mouth ev [place] day at bedtime at 9pm PRN TIZANIDINE HCL 27098992110 Active Tesfaye Owusu Active ZITHROMAX 250 MG TAB 2 po today, then 1 po q days 2-5 AZITHROMYCIN 39633256885 No Longer Active Tesfaye Sherman MD Acti ve BACTRIM DS 800-160 MG TAB 1 tab by mouth twice daily 2 TRIMETHOPRIM-SULFAMETHOXAZOLE 94655401539 No Longer Active Tesfaye Sherman MD Active PRELIEF 340 (65-50) MG (CA-P) ORAL TABS CALCIUM GLYCEROPHOSPHATE 53733853384 Active Tesfaye Sherman MD Active [facility] NIACIN FLUSH FREE 400-100 MG CAPS 1 daily NIACIN-INOSITOL 42402172585 Active Kayla Cooper MD Active DIFLUCAN 150 MG TABS 1 qd FLUCONAZOLE 32546 676870 No Longer Active Kayla Cooper MD Active FLUTICASONE PROPIONATE 50 MCG/ACT SUSP 1 spray each nostril twice daily FLUTICASONE PROPIONATE 26878609912 Active Tesfaye armenta MD Active LOVASTATIN 20 MG TABS Take 1 tablet by mouth daily LOVASTATIN 48998432947 No Longer Active Tesfaye Sherman MD Active MELOXICAM 7.5 MG TABS 1 tablet by mouth daily M ELOXICAM 38269955939 No Longer Active Tesfaye Sherman MD Active GABAPENTIN 300 MG CAPS Take two tablets by mouth every evening GABAPENTIN 50159089711 No Longer Active Edith Burch MD Active OXYCODONE-ACETAMINOPHEN 5-325 MG TABS Take one tablet by mouth every 6 hours as needed. Max 12 tabs/day as needed OXYCODONE-ACETAMINOP HEN 35484746362 Active Tesfaye Sherman MD Active CYMBALTA 60 MG CPEP Take 1 tablet by mouth daily D ULOXETINE HCL 71680140942 Active Kayla Cooper MD Active CLONAZEPAM 0.5 MG TABS Take one tablet in the morning and 1.5 table t at 7pm CLONAZEPAM 76683530424 Active Kayla Cooper MD Active BACLOFEN 10 MG TABS Take one tablet by mouth three times a day BACLOFEN 48256371568 Active Kayla Cooper MD Active GABAPENTIN 300 MG CAPS Take two tablets by mouth every evening GABAPENTIN 300 MG CAPS 060855 GABAPENTIN Inactive MELOXICAM 7.5 MG TABS 1 tablet by mouth daily MELOXICAM 7.5 MG TABS 007274 MELOXICAM Inactive LOVASTATIN 20 MG TABS Take 1 tablet by mouth daily 201 02/12/20 LOVASTATIN 20 MG TABS 060354 LOVASTATIN Inactive DIFLUCAN 150 MG TABS 1 qd DIFLUCAN 150 MG T ABS 194294 FLUCONAZOLE Inactive VITAMIN D3 2000 UNIT TABS 1 daily, for vitamin D deficiency 2014 VITAMIN D3 2000 UNIT TABS CHOLECALCIFEROL Inacti ve AMOXICILLIN 500 MG CAPS 1 cap by mouth three times a day AMOXICILLIN 500 MG CAPS 001366 AMOXICILLIN Inactive BACTRIM DS 800-160 MG TAB 1 tab by mouth twice daily X 10 DAYS 2 BACTRIM DS 800-160 MG TAB 19830105 TRIMETHOPRIM-SULFAMETH OXAZOLE Inactive TRIMETHOPRIM 100 MG TABS 1/2 qd TRIMETHOPRI M 100 MG TABS 164285 TRIMETHOPRIM Inactive CETIRIZINE HCL 5 MG TABS Take 1 tablet by mouth daily CETIRIZINE HCL 5 MG TABS 6505487 CETIRIZINE HCL Inactive PRAMIPEXOLE DIHYDROCHLORIDE 0.125 MG ORAL TABS take 1 tablet po qhs for restless leg syndrome. PRAMIPEXOLE DIHYDROC HLORIDE 0.125 MG ORAL TABS 662309 PRAMIPEXOLE DIHYDROCHLORIDE Inactive MIRTAZAPINE 15 MG ORAL TABS 1/2 tab by mouth at bedtime. MIRTAZAPINE 15 MG ORAL TABS 730807 MIRTAZAPINE Inactive DIFLUCAN 100 MG TAB 1 tablet by mouth daily X 3 DAYS 2 DIFLUCAN 100 MG TAB 423801 FLUCONAZOLE Inactive BACTRIM DS 800-160 MG TAB 1 tab by mouth twice daily 2 BACTRIM DS 800-160 MG TAB 957318 TRIMETHOPRIM-SULFAMETHOXAZOLE Inac tive ZITHROMAX 250 MG TAB 2 po today, then 1 po q days 2-5 ZITHROMAX 250 MG TAB 3448424 AZITHROMYCIN Inactive BACTRIM DS 800-160 MG TAB [...] mg/dL Encounters Code Encounter Date Provider Facility CPT-43911 Level 3 Est. Patient 10:46:32 CDT Rj cotto DO [facility] CPT-56604 Level 4 Est. Patient 20:19:25 CDT Tesfaye pearson MD [facility] CPT-18481 Level 3 Est. Patient 09:07:31 CDT Tesfaye pearson MD [facility] CPT-78508 Level 4 Est. Patient 13:12:56 CDT Tesfaye pearson MD [facility] CPT-46145 Level 4 Est. Patient 21:24:55 BODILY INJURY ADJUSTER Tesfaye pearson MD [facility] CPT-68745 Level 3 Est. Patient 13:45:04 BODILY INJURY ADJUSTER Tesfaye pearson MD [facility] CPT-34302 Level 4 Est. Patient 13:50:45 CDT Tesfaye pearson MD [facility] CPT-42441 Level 3 Est. Patient 10:16:10 CDT Tesfaye pearson MD [facility] CPT-10586 Level 3 Est. Patient 16:36:07 BODILY INJURY ADJUSTER Kayla jameson MD [facility] CPT-68705 Level 4 Est. Patient 16:00:14 BODILY INJURY ADJUSTER Tesfaye pearson MD [facility] CPT-42201 Level 4 Est. Patient 11:02:24 BODILY INJURY ADJUSTER Tesfaye pearson MD [facility] CPT-18878 Level 3 Est. Patient 20:21:43 BODILY INJURY ADJUSTER Kayla jameson MD [facility] CPT-80097 Level 3 Est. Patient 13:27:28 BODILY INJURY ADJUSTER Kayla jameson MD [facility] CPT-30671 Level 4 Est. Patient 15:57:17 BODILY INJURY ADJUSTER Tesfaye pearson MD [facility] CPT-87379 Level 3 New Patient 13:25:47 CDT Tesfaye kidd MD [facility] CPT-62455 Level 3 New Patient 17:22:21 CDT Kayla angel MD [facility] Procedures Code Procedure Name Date Entry Date Standard Desc ription CPT-G0438 Initial Annual Wellness Exam 11:23:17 CD T CPT-J2930 Solu Medrol 125 mg (Methyl Prednisolone Sodium Succinate) 17:29:12 BODILY INJURY ADJUSTER CPT-19254 Abx/Therapy Injection 17:29:11 BODILY INJURY ADJUSTER CPT-J2930 Solu Medrol 125 mg (Methyl Prednisolone Sodium Succinate) 12:34:38 BODILY INJURY ADJUSTER CPT-J3420 Vitamin B12 1000mcg (Cyanocobalamin) 09:12:55 CDT CPT-J3420 Vitamin B12 1000mcg (Cyanocobalamin) 16:28:06 BODILY INJURY ADJUSTER CPT-43678 Venipuncture Draw Fee 08:39:53 CDT CPT-J3420 Vitamin B12 1000mcg (Cyanocobalamin) 08:46:22 CDT CPT-69604 Abx/Therapy Injection 08:46:22 CDT CPT-J3420 Vitamin B12 1000mcg (Cyanocobalamin) 08:41:26 CDT CPT-62727 Abx/Therapy Injection 08:41:26 CDT CPT-J3420 Vitamin B12 1000mcg (Cyanocobalamin) 08:57:15 CDT CPT-97061 Abx/Therapy Injection 08:57:15 CDT CPT-J3420 Vitamin B12 1000mcg (Cyanocobalamin) 10:59:03 CDT CPT-39874 Abx/Therapy Injection 10:59:03 CDT CPT-J3420 Vitamin B12 1000mcg (Cyanocobalamin) 15:05:39 CDT CPT-79621 Abx/Therapy Injection 15:05:39 CDT CPT-J3420 Vitamin B12 1000mcg (Cyanocobalamin) 13:50:45 CDT CPT-J3420 Vitamin B12 1000mcg (Cyanocobalamin) 08:48:55 CDT CPT-02022 Abx/Therapy Injection 08:48:55 CDT CPT-J3420 Vitamin B12 1000mcg (Cyanocobalamin) 09:14:54 CDT CPT-43613 Abx/Therapy Injection 09:14:54 CDT CPT-J3420 Vitamin B12 1000mcg (Cyanocobalamin) 09:06:06 CDT CPT-71167 Abx/Therapy Injection 09:06:06 CDT CPT-J3420 Vitamin B12 1000mcg (Cyanocobalamin) 09:49:14 CDT CPT-05124 Abx/Therapy Injection 09:49:14 CDT CPT-J3420 Vitamin B12 1000mcg (Cyanocobalamin) 09:10:30 BODILY INJURY ADJUSTER CPT-19903 Abx/Therapy Injection 09:10:30 BODILY INJURY ADJUSTER CPT-J3420 Vitamin B12 1000mcg (Cyanocobalamin) 09:11:07 BODILY INJURY ADJUSTER CPT-28524 Abx/Therapy Injection 09:11:07 BODILY INJURY ADJUSTER CPT-J3420 Vitamin B12 1000mcg (Cyanocobalamin) 09:57:03 BODILY INJURY ADJUSTER CPT-82905 Abx/Therapy Injection 09:57:03 BODILY INJURY ADJUSTER CPT-J3420 Vitamin B12 1000mcg (Cyanocobalamin) 09:23:21 BODILY INJURY ADJUSTER CPT-97295 Abx/Therapy Injection 09:23:21 BODILY INJURY ADJUSTER CPT-12463 Urine Dip (Floor Use Only) 20:21:44 BODILY INJURY ADJUSTER 201 02/12/11 CPT-32495 UA Dip Auto (Floor Use Only) 10:04:39 BODILY INJURY ADJUSTER 2 CPT-76537 Urine Dip (Floor Use Only) 13:27:28 BODILY INJURY ADJUSTER 201 02/12/01 CPT-10446 Bladder Scan 13:27:28 BODILY INJURY ADJUSTER CPT-22112 Abd single AP View 14:30:51 BODILY INJURY ADJUSTER CPT-OV Office Visit 10:15:43 CDT CPT-91413 Urine Dip (Floor Use Only) 17:22:21 CDT 201 02/09/02 CPT-05663 Bladder Scan 17:22:21 CDT
--- OUTSIDE RECORDS SUMMARY | 2020-05-05 12:16 | XMS REPORT | Clinical Summary ---
Author Author Talon, Jeri Wood Organization [facility] Address Unknown Phone Unavailable Allergies, Adverse Reactions, [...] then 1 po q days 2-5 AZITHROMYCIN 22885331121 No Longer Active Tesfaye Sherman MD Acti ve BACTRIM DS 800-160 MG TAB 1 tab by mouth twice daily 2 TRIMETHOPRIM-SULFAMETHOXAZOLE 43528889909 No Longer Active Tesfaye Sherman MD Active VITAMIN D3 2000 UNIT TABS 1 daily, for vitamin D deficiency CHOLECALCIFEROL 37475540881 Active Tesfaye Sherman MD Activ e PRELIEF 340 (65-50) MG (CA-P) ORAL TABS CALCIUM GLYCEROPHOSPHATE 90364538254 Active Tesfaye Sherman MD Active [facility] NIACIN FLUSH FREE 400-100 MG CAPS 1 daily NIACIN-INOSITOL 24664735036 Active Kayla Coopre MD Active DIFLUCAN 150 MG TABS 1 qd FLUCONAZOLE 13715 571597 No Longer Active Kayla Cooper MD Active FLUTICASONE PROPIONATE 50 MCG/ACT SUSP 1 spray each nostril twice daily FLUTICASONE PROPIONATE 59455156601 Active Tesfaye armenta MD Active LOVASTATIN 20 MG TABS Take 1 tablet by mouth daily LOVASTATIN 99851667429 No Longer Active Tesfaye Sherman MD Active MELOXICAM 7.5 MG TABS 1 tablet by mouth daily M ELOXICAM 21895720404 No Longer Active Tesfaye Sherman MD Active GABAPENTIN 300 MG CAPS Take two tablets by mouth every evening GABAPENTIN 56212967480 No Longer Active Edith Burch MD Active TRIMETHOPRIM 100 MG TABS 1/2 qd TRIMETHOPRIM 4907434 3001 Active Kayla Cooper MD Active TIZANIDINE HCL 2 MG TABS take one tablet by mouth every day at bedtime at 9pm TIZANIDINE HCL 14478994733 Active Kayla Cooper MD Active OXYCODONE-ACETAMINOPHEN 5-325 MG TABS Take one tablet by mouth every 6 hours as needed. Max 12 tabs/day as needed OXYCODONE-ACETAMINOP HEN 11850169845 Active Tesfaye Sherman MD Active CYMBALTA 60 MG CPEP Take 1 tablet by mouth daily D ULOXETINE HCL 76557595876 Active Kayla Cooper MD Active CLONAZEPAM 0.5 MG TABS Take one tablet in the morning and 1.5 table t at 7pm CLONAZEPAM 75328716982 Active Kayla Cooper MD Active CETIRIZINE HCL 5 MG TABS Take 1 tablet by mouth daily CETIRIZINE HCL 09347784982 Active Kayla Cooper MD Active BACLOFEN 10 MG TABS Take one tablet by mouth three times a day BACLOFEN 32606062548 Active Kayla Cooper MD Active GABAPENTIN 300 MG CAPS Take two tablets by mouth every evening GABAPENTIN 300 MG CAPS 331577 GABAPENTIN Inactive MELOXICAM 7.5 MG TABS 1 tablet by mouth daily MELOXICAM 7.5 MG TABS 650236 MELOXICAM Inactive LOVASTATIN 20 MG TABS Take 1 tablet by mouth daily 201 02/12/20 LOVASTATIN 20 MG TABS 198355 LOVASTATIN Inactive DIFLUCAN 150 MG TABS 1 qd DIFLUCAN 150 MG T ABS 885736 FLUCONAZOLE Inactive BACTRIM DS 800-160 MG TAB 1 tab by mouth twice daily 2 BACTRIM DS 800-160 MG TAB TRIMETHOPRIM-SULFAMETHOXAZOLE Inac tive ZITHROMAX 250 MG TAB 2 po today, then 1 po q days 2-5 ZITHROMAX 250 MG TAB 9941303 AZITHROMYCIN Inactive Advance Directives Directive Description Start [...] Panel - Chemistry sodium, serum 138 mmol/L 236-956 0813/10/20 potassium, serum 4.5 mmol/L 3.5-5.2 chloride, serum [...] 0.90 mg/dL 0.00-1.00 cholesterol, serum 237 mg/dL 753-839 0620/10/20 triglyceride, serum, fasting 71 mg/dL 30-200 HDL [...] Panel - Chemistry cholesterol, serum 221 mg/dL 278-268 4198/01/23 triglyceride, serum, fasting 81 mg/dL 30-200 HDL [...] negative Encounters Code Encounter Date Provider Facility CPT-58497 Level 3 Est. Patient 10:16:10 CDT Tesfaye pearson MD [facility] CPT-95166 Level 3 Est. Patient 16:36:07 HERB DIGGER Kayla jameson MD [facility] CPT-92242 Level 4 Est. Patient 16:00:14 HERB DIGGER Tesfaye pearson MD [facility]-42766 Level 4 Est. Patient 11:02:24 HERB DIGGER Tesfaye pearson MD [facility] CPT-59384 Level 3 Est. Patient 20:21:43 HERB DIGGER Kayla jameson MD [facility] CPT-91525 Level 3 Est. Patient 13:27:28 HERB DIGGER Kayla jameson MD [facility] CPT-84646 Level 4 Est. Patient 15:57:17 HERB DIGGER Tesfaye pearson MD [facility] CPT-07853 Level 3 New Patient 13:25:47 CDT Tesfaye kidd MD [facility] CPT-78218 Level 3 New Patient 17:22:21 CDT J John angel MD [facility] Procedures Code Procedure Name Date Entry Date Standard Desc ription CPT-J3420 Vitamin B12 1000mcg (Cyanocobalamin) 08:48:55 CDT CPT-29821 Abx/Therapy Injection 08:48:55 CDT CPT-J3420 Vitamin B12 1000mcg (Cyanocobalamin) 09:14:54 CDT CPT-75876 Abx/Therapy Injection 09:14:54 CDT CPT-J3420 Vitamin B12 1000mcg (Cyanocobalamin) 09:06:06 CDT CPT-53909 Abx/Therapy Injection 09:06:06 CDT CPT-J3420 Vitamin B12 1000mcg (Cyanocobalamin) 09:49:14 CDT CPT-59652 Abx/Therapy Injection 09:49:14 CDT CPT-J3420 Vitamin B12 1000mcg (Cyanocobalamin) 09:10:30 HERB DIGGER CPT-98219 Abx/Therapy Injection 09:10:30 HERB DIGGER CPT-J3420 Vitamin B12 1000mcg (Cyanocobalamin) 09:11:07 HERB DIGGER CPT-89117 Abx/Therapy Injection 09:11:07 HERB DIGGER CPT-J3420 Vitamin B12 1000mcg (Cyanocobalamin) 09:57:03 HERB DIGGER CPT-22780 Abx/Therapy Injection 09:57:03 HERB DIGGER CPT-J3420 Vitamin B12 1000mcg (Cyanocobalamin) 09:23:21 HERB DIGGER CPT-72098 Abx/Therapy Injection 09:23:21 HERB DIGGER CPT-11711 Urine Dip (Floor Use Only) 20:21:44 HERB DIGGER 201 02/12/11 CPT-14406 UA Dip Auto (Floor Use Only) 10:04:39 HERB DIGGER 2 CPT-24405 Urine Dip (Floor Use Only) 13:27:28 HERB DIGGER 201 02/12/01 CPT-65929 Bladder Scan 13:27:28 HERB DIGGER CPT-51043 Abd single AP View 14:30:51 HERB DIGGER CPT-OV Office Visit 10:15:43 CDT CPT-71379 Urine Dip (Floor Use Only) 17:22:21 CDT 201 02/09/02 CPT-90736 Bladder Scan 17:22:21 CDT
--- OUTSIDE RECORDS SUMMARY | 2020-05-05 12:16 | XMS REPORT | Clinical Summary ---
Author Author Talon, Jeri Wood Organization [facility] Address Unknown Phone Unavailable Allergies, [...] tab by mouth twice daily 2 TRIMETHOPRIM-SULFAMETHOXAZOLE 38502448594 Active Tesfaye Sherman MD Active BACTRIM DS 800-160 MG TAB 1 tab by mouth twice daily X 10 DAYS 2 TRIMETHOPRIM-SULFAMETHOXAZOLE 86192854909 No Longer Active Umer Sherman MD Active AMOXICILLIN 500 MG CAPS 1 cap by mouth three times a day AMOXICILLIN 10771272128 No Longer Active Adriana Arredondo Active MECLIZINE HCL 25 MG TAB one tab po qday prn dizziness MECLIZINE HCL 25433736064 Active Tesfaye Sherman MD Active B-12 1000 MCG ORAL LOZG 1 tab po daily CYANOCOBAL STANTON 56929884052 Active Tesfaye Sherman MD Active VITAMIN D3 2000 UNIT TABS 1 daily, for vitamin D deficiency 2014 CHOLECALCIFEROL 96020358401 No Longer Active Tesfaye Sherman MD Active TIZANIDINE HCL 2 MG TABS take 1-2 tablet by mouth ev at bedtime at 9pm PRN TIZANIDINE HCL 22074152065 Active Tesfaye Owusu Active ZITHROMAX 250 MG TAB 2 po today, then 1 po q days 2-5 AZITHROMYCIN 22980065128 No Longer Active Tesfaye Sherman MD Acti ve BACTRIM DS 800-160 MG TAB 1 tab by mouth twice daily 2 TRIMETHOPRIM-SULFAMETHOXAZOLE 83515071187 No Longer Active Tesfaye Sherman MD Active PRELIEF 340 (65-50) MG (CA-P) ORAL TABS CALCIUM GLYCEROPHOSPHATE 74431220538 Active Tesfaye Sherman MD Active [facility] NIACIN FLUSH FREE 400-100 MG CAPS 1 daily NIACIN-INOSITOL 82291637686 Active Kayla Cooper MD Active DIFLUCAN 150 MG TABS 1 qd FLUCONAZOLE 05401 284211 No Longer Active Kayla Cooper MD Active FLUTICASONE PROPIONATE 50 MCG/ACT SUSP 1 spray each nostril twice daily FLUTICASONE PROPIONATE 23215794675 Active Tesfaye armenta MD Active LOVASTATIN 20 MG TABS Take 1 tablet by mouth daily LOVASTATIN 54383183025 No Longer Active Tesfaye Sherman MD Active MELOXICAM 7.5 MG TABS 1 tablet by mouth daily M ELOXICAM 00395897039 No Longer Active Tesfaye Sherman MD Active GABAPENTIN 300 MG CAPS Take two tablets by mouth every evening GABAPENTIN 55040200927 No Longer Active Edith Burch MD Active TRIMETHOPRIM 100 MG TABS 1/2 qd TRIMETHOPRIM 9052019 3001 Active Kayla Cooper MD Active OXYCODONE-ACETAMINOPHEN 5-325 MG TABS Take one tablet by mouth every 6 hours as needed. Max 12 tabs/day as needed OXYCODONE-ACETAMINOP HEN 79050575894 Active Tesfaye Sherman MD Active CYMBALTA 60 MG CPEP Take 1 tablet by mouth daily D ULOXETINE HCL 56619472896 Active Kayla Cooper MD Active CLONAZEPAM 0.5 MG TABS Take one tablet in the morning and 1.5 table t at 7pm CLONAZEPAM 38973289603 Active Kayla Cooper MD Active CETIRIZINE HCL 5 MG TABS Take 1 tablet by mouth daily CETIRIZINE HCL 51048333969 Active Kayla Cooper MD Active BACLOFEN 10 MG TABS Take one tablet by mouth three times a day BACLOFEN 16820646183 Active Kayla Cooper MD Active GABAPENTIN 300 MG CAPS Take two tablets by mouth every evening GABAPENTIN 300 MG CAPS 579181 GABAPENTIN Inactive MELOXICAM 7.5 MG TABS 1 tablet by mouth daily MELOXICAM 7.5 MG TABS 167036 MELOXICAM Inactive LOVASTATIN 20 MG TABS Take 1 tablet by mouth daily 201 02/12/20 LOVASTATIN 20 MG TABS 230277 LOVASTATIN Inactive DIFLUCAN 150 MG TABS 1 qd DIFLUCAN 150 MG T ABS 706596 FLUCONAZOLE Inactive VITAMIN D3 2000 UNIT TABS 1 daily, for vitamin D deficiency 2014 VITAMIN D3 2000 UNIT TABS CHOLECALCIFEROL Inacti ve AMOXICILLIN 500 MG CAPS 1 cap by mouth three times a day AMOXICILLIN 500 MG CAPS 537809 AMOXICILLIN Inactive BACTRIM DS 800-160 MG TAB 1 tab by mouth twice daily X 10 DAYS 2 BACTRIM DS 800-160 MG TAB 255744 TRIMETHOPRIM-SULFAMETH OXAZOLE Inactive BACTRIM DS 800-160 MG TAB 1 tab by mouth twice daily 2 BACTRIM DS 800-160 MG TAB 982756 TRIMETHOPRIM-SULFAMETHOXAZOLE Inac tive ZITHROMAX 250 MG TAB 2 po today, then 1 po q days 2-5 ZITHROMAX 250 MG TAB 6398140 AZITHROMYCIN Inactive Advance Directives Directive Description Start [...] 5.0-8.5 Encounters Code Encounter Date Provider Facility CPT-84831 Level 3 Est. Patient 13:45:[address] Tesfaye pearson MD [facility] CPT-09184 Level 4 Est. Patient 13:50:45 CDT Tesfaye pearson MD [facility] CPT-20988 Level 3 Est. Patient 10:16:10 CDT Tesfaye pearson MD [facility]-59394 Level 3 Est. Patient 16:36:[address] Kayla jameson MD [facility]-87152 Level 4 Est. Patient 16:00:[address] Tesfaye pearson MD [facility]-91477 Level 4 Est. Patient 11:02:[address] Tesfaye pearson MD [facility]-69832 Level 3 Est. Patient 20:21:[address] Kayla jameson MD [facility]-23022 Level 3 Est. Patient 13:27:[address] Kayla jameson MD [facility]-34374 Level 4 Est. Patient 15:57:[address] Tesfaye pearson MD [facility] CPT-39210 Level 3 New Patient 13:25:47 CDT Tesfaye kidd MD [facility] CPT-39120 Level 3 New Patient 17:22:21 CDT Kayla angel MD [facility] Procedures Code Procedure Name Date Entry Date Standard Desc ription CPT-J2930 Solu Medrol 125 mg (Methyl Prednisolone Sodium Succinate) 17:29:[address] CPT-10638 Abx/Therapy Injection 17:29:[address] CPT-J2930 Solu Medrol 125 mg (Methyl Prednisolone Sodium Succinate) 12:34:[address] CPT-J3420 Vitamin B12 1000mcg (Cyanocobalamin) 09:12:55 CDT CPT-J3420 Vitamin B12 1000mcg (Cyanocobalamin) 16:28:[address] CPT-55104 Venipuncture Draw Fee 08:39:53 CDT CPT-J3420 Vitamin B12 1000mcg (Cyanocobalamin) 08:46:22 CDT CPT-69531 Abx/Therapy Injection 08:46:22 CDT CPT-J3420 Vitamin B12 1000mcg (Cyanocobalamin) 08:41:26 CDT CPT-07839 Abx/Therapy Injection 08:41:26 CDT CPT-J3420 Vitamin B12 1000mcg (Cyanocobalamin) 08:57:15 CDT CPT-99935 Abx/Therapy Injection 08:57:15 CDT CPT-J3420 Vitamin B12 1000mcg (Cyanocobalamin) 10:59:03 CDT CPT-03686 Abx/Therapy Injection 10:59:03 CDT CPT-J3420 Vitamin B12 1000mcg (Cyanocobalamin) 15:05:39 CDT CPT-87020 Abx/Therapy Injection 15:05:39 CDT CPT-J3420 Vitamin B12 1000mcg (Cyanocobalamin) 13:50:45 CDT CPT-J3420 Vitamin B12 1000mcg (Cyanocobalamin) 08:48:55 CDT CPT-93358 Abx/Therapy Injection 08:48:55 CDT CPT-J3420 Vitamin B12 1000mcg (Cyanocobalamin) 09:14:54 CDT CPT-09597 Abx/Therapy Injection 09:14:54 CDT CPT-J3420 Vitamin B12 1000mcg (Cyanocobalamin) 09:06:06 CDT CPT-43300 Abx/Therapy Injection 09:06:06 CDT CPT-J3420 Vitamin B12 1000mcg (Cyanocobalamin) 09:49:14 CDT CPT-74091 Abx/Therapy Injection 09:49:14 CDT CPT-J3420 Vitamin B12 1000mcg (Cyanocobalamin) 09:10:[address] CPT-58772 Abx/Therapy Injection 09:10:[address] CPT-J3420 Vitamin B12 1000mcg (Cyanocobalamin) 09:11:[address] CPT-75588 Abx/Therapy Injection 09:11:[address] CPT-J3420 Vitamin B12 1000mcg (Cyanocobalamin) 09:57:[address] CPT-06224 Abx/Therapy Injection 09:57:[address] CPT-J3420 Vitamin B12 1000mcg (Cyanocobalamin) 09:23:[address] CPT-71688 Abx/Therapy Injection 09:23:[address] CPT-88732 Urine Dip (Floor Use Only) 20:21:[address] 201 02/12/11 CPT-58354 UA Dip Auto (Floor Use Only) 10:04:[address] 2 CPT-17769 Urine Dip (Floor Use Only) 13:27:[address] 201 02/12/01 CPT-71927 Bladder Scan 13:27:[address] CPT-06881 Abd single AP View 14:30:[address] CPT-OV Office Visit 10:15:43 CDT CPT-98446 Urine Dip (Floor Use Only) 17:22:21 CDT 201 02/09/02 CPT-44881 Bladder Scan 17:22:21 CDT
--- OUTSIDE RECORDS SUMMARY | 2020-05-05 12:16 | XMS REPORT | Clinical Summary ---
Author Author Jeri Hanley Organization [employer] Address Unknown Phone Unavailable Allergies, Adverse Reactions, [...] Toe pain, right 729.5 Active Chelsea Cardenas SPECIAL PROCEDURES TECH Pain in limb Foot pain, right 729.5 Active Chelsea Wilfredyvon SPECIAL PROCEDURES TECH Pain in limb Joint pain 719.40 Active Chelsea Cardenas SPECIAL PROCEDURES TECH Pain in joint, site unspecified Tobacco abuse [...] MD Body Mass Index between 19-24, adult Medication List Medication Instructions Start Date Stop Date Generic Name NDC Status Provider Patient Instruction OXYCODONE-ACETAMINOPHEN 5-325 MG ORAL TABLET Take one tablet by mouth every 6 hours as needed. Use sparingly OXYCODONE-ACETAMINOPHEN 53655649333 Active Tesfaye Sherman MD Active PREDNISONE 20 MG ORAL TABLET 1 tab twice daily for 3 d ay, then one daily for three days PREDNISONE 08677282549 No Longer Active Tesfaye Sherman MD Active PROAIR HFA 108 (90 BASE) MCG/ACT INHALATION AEROSOL SO LUTION 1 puff every 6 hours as needed ALBUTEROL SULFATE 78229150209 Active [place] nda Raida Active MECLIZINE HCL 25 MG ORAL TABLET one 4 times a day as needed for dizziness MECLIZINE HCL 74995569550 Active Laurence Dominguez Active DIFLUCAN 100 MG ORAL TABLET 1 tablet by mouth daily FLUCONAZOLE 74253494574 Active Laurence Dominguez Active AMOXICILLIN 500 MG ORAL CAPSULE 1 cap by mouth three times a day AMOXICILLIN 20220751671 No Longer Active Laurence Dominguez Acti ve VENLAFAXINE HCL 75 MG ORAL TABLET 1 am 1/2 at noon VENLAFAXINE HCL 83464923019 Active Tesfaye Sherman MD Active DIFLUCAN 100 MG ORAL TABLET 1 tablet by mouth daily 20 19/08/26 FLUCONAZOLE 48943511516 No Longer Active Tesfaye Sherman MD Acti ve BACTRIM DS 800-160 MG ORAL TABLET 1 tab by mouth twice daily 201 05/10/28 TRIMETHOPRIM-SULFAMETHOXAZOLE 11644512873 No Longer Active Fer Dominguez Active FOSAMAX 70 MG ORAL TABLET 1 po qweek. Take 30min prio r to first food/drink. Avoid lying down x 1 hour. ALENDRONATE SODIUM 93988530 144 No Longer Active Laurence Dominguez Active REPHRESH PRO-B ORAL CAPSULE 1 tablet daily LACT OBACILLUS 76870416334 Active Edith Burch MD Active CYMBALTA 60 MG ORAL CAPSULE DELAYED RELEASE PARTICLES Take 1 tablet by mouth daily DULOXETINE HCL 44566436287 No Longer Active Edith Burch MD Active CYMBALTA 30 MG ORAL CAPSULE DELAYED RELEASE PARTICLES 1 cap by mouth daily with 60mg DULOXETINE HCL 79598894021 No Longer Active Jordan Burch MD Active FISH OIL 1000 MG ORAL CAPSULE DELAYED RELEASE 1 pill b y mouth daily for cholesterol OMEGA-3 FATTY ACIDS 62610063715 Active Cee Jaffe LPN Active RED YEAST RICE 600 MG ORAL CAPSULE 1 pill by mouth daily RED YEAST RICE EXTRACT 43640364362 Active KENDELL Moreno e DIFLUCAN 100 MG ORAL TABLET 1 tablet by mouth daily 20 19/03/05 FLUCONAZOLE 88666002182 No Longer Active Tesfaye Sherman MD Acti ve BACTRIM DS 800-160 MG ORAL TABLET 1 tab by mouth twice daily 201 05/06/28 TRIMETHOPRIM-SULFAMETHOXAZOLE 32095432433 No Longer Active Umer Sherman MD Active BACTRIM DS 800-160 MG ORAL TABLET 1 tab by mouth twice daily 201 05/04/15 TRIMETHOPRIM-SULFAMETHOXAZOLE 74802846688 No Longer Active Umre Sherman MD Active DIFLUCAN 150 MG ORAL TABLET 1 tablet by mouth daily 20 18/09/20 FLUCONAZOLE 03438073992 No Longer Active Tesfaye Sherman MD Acti ve BACTRIM DS 800-160 MG ORAL TABLET 1 tab by mouth twice daily 201 04/13/17 TRIMETHOPRIM-SULFAMETHOXAZOLE 67542504861 No Longer Active Umer Sherman MD Active ROPINIROLE HCL 0.25 MG ORAL TABLET 1 TAB PO Q HS ROPINIROLE HCL 20295869232 Active Tesfaye Sherman MD Active CEFTIN 250 MG ORAL TABLET 1 tablet twice daily x 7 days CEFUROXIME AXETIL 39591070618 No Longer Active Tesfaye Sherman MD Active DIFLUCAN 100 MG ORAL TABLET 1 tablet by mouth every other da y for 2 doses FLUCONAZOLE 93066409000 No Longer Active Tesfaye barron MD Active DIFLUCAN 100 MG ORAL TABLET 1 tablet by mouth daily X 3 DAYS 201 04/09/01 FLUCONAZOLE 07456045161 No Longer Active Rj Ravi MIRTAZAPINE 15 MG ORAL TABLET 1/2 tab by mouth at bedtime. 03/13 MIRTAZAPINE 92741176025 No Longer Active Tesfaye Sherman MD Active BACTRIM DS 800-160 MG ORAL TABLET 1 tab by mouth twice daily 201 04/09/01 TRIMETHOPRIM-SULFAMETHOXAZOLE 75215480333 No Longer Active Umer Sherman MD Active PRAMIPEXOLE DIHYDROCHLORIDE 0.125 MG ORAL TABLET take 1 tablet po qhs for restless leg syndrome. PRAMIPEXOLE DIHYDROCHLORI DE 09687769872 No Longer Active Tesfaye Sherman MD Active MAGNESIUM 400 MG ORAL TABLET 1 tab po daily [place] GONSALVESUM 24274262564 Active Chelsea Cardenas APRN Active SUDAFED 24 HOUR 240 MG ORAL TABLET EXTENDED RELEASE 24 HOUR 1 tab po daily PSEUDOEPHEDRINE HCL 21282239814 Active Chelsea Cardenas APRN Active CETIRIZINE HCL 5 MG ORAL TABLET Take 1 tablet by mouth daily CETIRIZINE HCL 07508864267 No Longer Active Chelsea Cardenas APRN Activ e TRIMETHOPRIM 100 MG ORAL TABLET 1/2 qd TRIM ETHOPRIM 07165139354 No Longer Active Chelsea Cardenas APRN Active BACTRIM DS 800-160 MG ORAL TABLET 1 tab by mouth twice daily 201 04/04/11 TRIMETHOPRIM-SULFAMETHOXAZOLE 23738746074 No Longer Active D patricia Sherman MD Active BACTRIM DS 800-160 MG ORAL TABLET 1 tab by mouth twice daily X 10 DAYS TRIMETHOPRIM-SULFAMETHOXAZOLE 87188182774 No Longer Active Tesfaye Sherman MD Active AMOXICILLIN 500 MG ORAL CAPSULE 1 cap by mouth three times a day AMOXICILLIN 76590289801 No Longer Active Adriana Arredondo Active MECLIZINE HCL 25 MG ORAL TABLET one tab po qday prn dizziness 09/08 MECLIZINE HCL 92543537955 Active Tesfaye Sherman MD Active B-12 1000 MCG ORAL LOZENGE 1 tab po daily CYANO COBALAMIN 56961091917 Active Tesfaye Sherman MD Active VITAMIN D3 2000 UNIT ORAL TABLET 1 daily, for vitamin D deficien cy CHOLECALCIFEROL 59354294844 No Longer Active Tesfaye Sherman MD Active TIZANIDINE HCL 2 MG ORAL TABLET take 1-2 tablet by mo uth every day at bedtime at 9pm PRN TIZANIDINE HCL 90734370009 Active Tesfaye hewitt MD Active ZITHROMAX 250 MG ORAL TABLET 2 po today, then 1 po q days 2-5 20 15/02/10 AZITHROMYCIN 54744932997 No Longer Active Tesfaye Sherman MD Active BACTRIM DS 800-160 MG ORAL TABLET 1 tab by mouth twice daily 201 03/03/23 TRIMETHOPRIM-SULFAMETHOXAZOLE 58603804049 No Longer Active Umer Sherman MD Active PRELIEF 340 (65-50) MG (CA-P) ORAL TABLET CALCIUM GLYCEROPHOSPHATE 51489976579 Active Tesfaye Sherman MD Acti ve [facility] NIACIN FLUSH FREE 400-100 MG ORAL CAPSULE 1 daily NIACIN-INOSITOL 31219376458 Active Kayla Cooper MD Activ e DIFLUCAN 150 MG ORAL TABLET 1 qd FLUCONAZOL E 93181887254 No Longer Active Kayla Cooper MD Active FLUTICASONE PROPIONATE 50 MCG/ACT NASAL SUSPENSION 1 spray each nostril twice daily FLUTICASONE PROPIONATE 26876878991 Active Umer Sherman MD Active LOVASTATIN 20 MG ORAL TABLET Take 1 tablet by mouth daily LOVASTATIN 28672781256 No Longer Active Tesfaye Sherman MD Acti ve MELOXICAM 7.5 MG ORAL TABLET 1 tablet by mouth daily 2 MELOXICAM 08088299998 No Longer Active Tesfaye Sherman MD Acti ve GABAPENTIN 300 MG ORAL CAPSULE Take two tablets by mouth every e vening GABAPENTIN 52043301244 No Longer Active Edith Burch MD A ctive CLONAZEPAM 0.5 MG ORAL TABLET Take one tablet in the m orning and 1.5 tablet at 7pm CLONAZEPAM 69692333083 Active Kayla Cooper MD Active BACLOFEN 10 MG ORAL TABLET Take one tablet by mouth three times a d ay BACLOFEN 52970958334 Active Kayla Cooper MD Active GABAPENTIN 300 MG ORAL CAPSULE Take two tablets by mouth every e vening GABAPENTIN 300 MG ORAL CAPSULE 234695 GABAPENTIN I nactive MELOXICAM 7.5 MG ORAL TABLET 1 tablet by mouth daily 2 MELOXICAM 7.5 MG ORAL TABLET 624832 MELOXICAM Inactive LOVASTATIN 20 MG ORAL TABLET Take 1 tablet by mouth daily LOVASTATIN 20 MG ORAL TABLET 356312 LOVASTATIN Inactive DIFLUCAN 150 MG ORAL TABLET 1 qd DIFLUCAN 150 MG ORAL TABLET 862881 FLUCONAZOLE Inactive VITAMIN D3 2000 UNIT ORAL TABLET 1 daily, for vitamin D deficien cy VITAMIN D3 2000 UNIT ORAL TABLET CHOLECALCIFEROL Inactive AMOXICILLIN 500 MG ORAL CAPSULE 1 cap by mouth three times a day AMOXICILLIN 500 MG ORAL CAPSULE 601518 AMOXICILLIN Inactive BACTRIM DS 800-160 MG ORAL TABLET 1 tab by mouth twice daily X 10 DAYS BACTRIM DS 800-160 MG ORAL TABLET 268055 TRIMETHOPRIM-SULFAMETHOXAZOLE Inactive TRIMETHOPRIM 100 MG ORAL TABLET 1/2 qd 7 TRIMETHOPRIM 100 MG ORAL TABLET 656126 TRIMETHOPRIM Inactive CETIRIZINE HCL 5 MG ORAL TABLET Take 1 tablet by mouth daily CETIRIZINE HCL 5 MG ORAL TABLET 1037856 CETIRIZINE HCL Inactive PRAMIPEXOLE DIHYDROCHLORIDE 0.125 MG ORAL TABLET take 1 tablet po qhs for restless leg syndrome. PRAMIPEXOLE DIHYD ROCHLORIDE 0.125 MG ORAL TABLET 014115 PRAMIPEXOLE DIHYDROCHLORIDE Inactive MIRTAZAPINE 15 MG ORAL TABLET 1/2 tab by mouth at bedtime. 03/13 MIRTAZAPINE 15 MG ORAL TABLET 426254 MIRTAZAPINE In active DIFLUCAN 100 MG ORAL TABLET 1 tablet by mouth daily X 3 DAYS 201 04/09/01 DIFLUCAN 100 MG ORAL TABLET 429114 FLUCONAZOLE Inac tive DIFLUCAN 100 MG ORAL TABLET 1 tablet by mouth every other da y for 2 doses DIFLUCAN 100 MG ORAL TABLET 910336 FLUCONAZOLE Inactive CEFTIN 250 MG ORAL TABLET 1 tablet twice daily x 7 days CEFTIN 250 MG ORAL TABLET 469091 CEFUROXIME AXETIL Inactive CYMBALTA 30 MG ORAL CAPSULE DELAYED RELEASE PARTICLES 1 cap by mouth daily with 60mg CYMBALTA 30 MG ORAL CAPSULE DELAYED RELEASE PARTICLES 178940 DULOXETINE HCL Inactive CYMBALTA 60 MG ORAL CAPSULE DELAYED RELEASE PARTICLES Take 1 tablet by mouth daily CYMBALTA 60 MG ORAL CAPSULE DELAYED RELEA SE PARTICLES 434003 DULOXETINE HCL Inactive FOSAMAX 70 MG ORAL TABLET 1 po qweek. Take 30min prio r to first food/drink. Avoid lying down x 1 hour. FOSAMAX 70 MG ORAL TA BLET 027496 ALENDRONATE SODIUM Inactive DIFLUCAN 100 MG ORAL TABLET 1 tablet by mouth daily 19/08/26 DIFLUCAN 100 MG ORAL TABLET 517128 FLUCONAZOLE Inactive PREDNISONE 20 MG ORAL TABLET 1 tab twice daily for 3 d ay, then one daily for three days PREDNISONE 20 MG ORAL TABLET 408743 PREDNIS ONE Inactive BACTRIM DS 800-160 MG ORAL TABLET 1 tab by mouth twice daily 201 03/03/23 BACTRIM DS 800-160 MG ORAL TABLET 19830105 TRIMETHOPRIM-SULFAMETHOXAZOLE Inactive ZITHROMAX 250 MG ORAL TABLET 2 po today, then 1 po q days 2-5 20 15/02/10 ZITHROMAX 250 MG ORAL TABLET 723960 AZITHROMYCIN [place] ctive BACTRIM DS 800-160 MG ORAL TABLET [...] daily 19/03/05 DIFLUCAN 100 MG ORAL TABLET 716228 FLUCONAZOLE Inactive BACTRIM DS 800-160 MG ORAL TABLET 1 tab by mouth twice daily 201 05/10/28 BACTRIM DS 800-160 MG ORAL TABLET 19830105 TRIMETHOPRIM-SULFAMETHOXAZOLE Inactive AMOXICILLIN 500 MG ORAL CAPSULE 1 cap by mouth three times a day AMOXICILLIN 500 MG ORAL CAPSULE 522622 AMOXICILLIN Inactive Advance Directives Directive Description Start Date PERMISSION TO SHARE DISCUSSED WITH PATIENT -- NO DECISION MADE DURABLE POWER OF WASTE COLLECTOR FOR HEALTHCARE Vital Signs Date Name Value [...] weight E&M 128 [lb_av] Weight Measure d Diagnostic Results Date [...] 11 .6-14.8 platelet count 349 10^3/MM^3 10*3/mm3 203-068 2683/06/14 erythrocyte (RBC) count 4.91 10^6/MM^3 10*6/mm3 3.80-5.8 0 lymphocytes as percent of blood leukocytes 28.7 % 20.5-51.1 monocytes as percent of blood leukocytes 8.7 % 1.7-9.3 neutrophils as percent of blood leukocytes 56.3 % 42.2-75.2 leukocyte count, blood 8.8 10^3/MM^3 10*3/mm3 4.6-10.2 Lab Report: Comp. Metabolic Panel, Lipid Panel, Thyroid Stimulating Horm ... - Chemistry urea nitrogen, blood 9 mg/dL 7-18 creatinine, serum 0.67 mg/dL 0.55-1.30 alanine aminotransferase (SGPT), serum 24 U/L 12-78 aspartate aminotransferase (SGOT), serum 15 U/L 15-37 calcium, serum 9.3 mg/dL 8.5-10.1 bilirubin, serum, total 0.50 mg/dL 0.00-1.00 cholesterol, serum 268 mg/dL 096-792 3212/06/14 triglyceride, serum, fasting 126 mg/dL 30-200 HDL cholesterol, serum 51 mg/dL 32-96 LDL cholesterol, serum 192 mg/dL 0-130 TSH 0.83 m[iU]/mL 0.36-3.74 thyroxine, serum, free 1.03 ng/dL 0.76-1.46 uric acid, serum 3.2 mg/dL 2.6-7.2 sodium, serum 144 mmol/L 580-667 9591/06/14 carbon dioxide, venous blood 29.4 mmol/L 21.0-32 .0 potassium, serum 4.4 mmol/L 3.5-5.2 chloride, serum 108 mmol/L 98-107 blood glucose 100 mg/dL 65-110 Lab Report: Comp. Metabolic Panel, [place] [facility] - Chemistry sodium, serum 141 mmol/L 580-875 1706/01/26 carbon dioxide, venous blood 29.5 mmol/L 21.0-32 [...] HDL cholesterol, serum, target level 40 mg/dL cholesterol, target level 200 mg/dL triglyceride, target level 150 mg/dL Encounters Code Encounter Date Provider Facility CPT-92602 Level 4 Est. Patient 14:44:33 GAMEPLAY PROGRAMMER Tesfaye pearson MD [facility] CPT-02279 Level 4 Est. Patient 13:55:29 GAMEPLAY PROGRAMMER Tesfaye pearson MD [facility] CPT-16735 Level 4 Est. Patient 17:07:34 GAMEPLAY PROGRAMMER Tesfaye pearson MD [facility] CPT-73004 Level 4 Est. Patient 13:56:54 CDT Tesfaye pearson MD [facility] CPT-76335 Level 4 Est. Patient 13:24:25 CDT Chelsea sanz APRN [facility] CPT-50901 Level 4 Est. Patient 09:14:56 CDT Tesfaye pearson MD [facility] CPT-17142 Level 4 Est. Patient 18:40:25 GAMEPLAY PROGRAMMER Tesfaye pearson MD [facility] CPT-44998 Level 4 Est. Patient 18:13:07 GAMEPLAY PROGRAMMER Tesfaye pearson MD [facility] CPT-44919 Level 3 Est. Patient 10:46:32 CDT Rj cotto DO [facility] CPT-82098 Level 4 Est. Patient 20:19:25 CDT Tesfaye pearson MD [facility] CPT-75815 Level 3 Est. Patient 09:07:31 CDT Tesfaye pearson MD [facility] CPT-17788 Level 4 Est. Patient 13:12:56 CDT Tesfaye pearson MD [facility] CPT-16522 Level 4 Est. Patient 21:24:55 GAMEPLAY PROGRAMMER Tesfaye pearson MD [facility] CPT-42512 Level 3 Est. Patient 13:45:04 GAMEPLAY PROGRAMMER Tesfaye pearson MD [facility] CPT-51345 Level 4 Est. Patient 13:50:45 CDT Tesfaye pearson MD [facility] CPT-56396 Level 3 Est. Patient 10:16:10 CDT Tesfaye pearson MD [facility] CPT-75920 Level 3 Est. Patient 16:36:07 GAMEPLAY PROGRAMMER Kayla jameson MD [facility]-07500 Level 4 Est. Patient 16:00:14 GAMEPLAY PROGRAMMER Tesfaye pearson MD [facility]-[id number] Level 4 Est. Patient 11:02:24 GAMEPLAY PROGRAMMER Tesfaye pearson MD [facility] CPT-66317 Level 3 Est. Patient 20:21:43 GAMEPLAY PROGRAMMER Kayla jameson MD [facility] CPT-23921 Level 3 Est. Patient 13:27:28 GAMEPLAY PROGRAMMER Kayla jameson MD [facility]-[id number] Level 4 Est. Patient 15:57:17 GAMEPLAY PROGRAMMER Tesfaye pearson MD [facility] CPT-46503 Level 3 New Patient 13:25:47 CDT Tesfaye kidd MD [facility] CPT-31453 Level 3 New Patient 17:22:21 CDT Kayla angel MD [facility] Procedures Code Procedure Name Date Entry Date Standard Desc ription CPT-89912 Bone Density - XRAY USE ONLY 11:43:58 CDT 2 CPT-67973 Bone Density - XRAY USE ONLY 10:05:16 CDT 2 CPT-80203 Prv Med New Pt 40-64 yrs 18:19:25 CDT 2016 CPT-29628 Foot, right, comp min 3V - XRAY USE ONLY 10:38:34 CDT CPT-G0439 Subsequent Annual Wellness Exam 13:55:04 CDT CPT-G0438 Initial Annual Wellness Exam 11:23:17 CD T CPT-J2930 Solu Medrol 125 mg (Methyl Prednisolone Sodium Succinate) 17:29:12 GAMEPLAY PROGRAMMER CPT-94200 Abx/Therapy Injection 17:29:11 GAMEPLAY PROGRAMMER CPT-J2930 Solu Medrol 125 mg (Methyl Prednisolone Sodium Succinate) 12:34:38 GAMEPLAY PROGRAMMER CPT-J3420 Vitamin B12 1000mcg (Cyanocobalamin) 09:12:55 CDT CPT-J3420 Vitamin B12 1000mcg (Cyanocobalamin) 16:28:06 GAMEPLAY PROGRAMMER CPT-27764 Venipuncture Draw Fee 08:39:53 CDT CPT-J3420 Vitamin B12 1000mcg (Cyanocobalamin) 08:46:22 CDT CPT-41289 Abx/Therapy Injection 08:46:22 CDT CPT-J3420 Vitamin B12 1000mcg (Cyanocobalamin) 08:41:26 CDT CPT-45669 Abx/Therapy Injection 08:41:26 CDT CPT-J3420 Vitamin B12 1000mcg (Cyanocobalamin) 08:57:15 CDT CPT-75416 Abx/Therapy Injection 08:57:15 CDT CPT-J3420 Vitamin B12 1000mcg (Cyanocobalamin) 10:59:03 CDT CPT-98150 Abx/Therapy Injection 10:59:03 CDT CPT-J3420 Vitamin B12 1000mcg (Cyanocobalamin) 15:05:39 CDT CPT-56369 Abx/Therapy Injection 15:05:39 CDT CPT-J3420 Vitamin B12 1000mcg (Cyanocobalamin) 13:50:45 CDT CPT-J3420 Vitamin B12 1000mcg (Cyanocobalamin) 08:48:55 CDT CPT-57306 Abx/Therapy Injection 08:48:55 CDT CPT-J3420 Vitamin B12 1000mcg (Cyanocobalamin) 09:14:54 CDT CPT-82060 Abx/Therapy Injection 09:14:54 CDT CPT-J3420 Vitamin B12 1000mcg (Cyanocobalamin) 09:06:06 CDT CPT-51831 Abx/Therapy Injection 09:06:06 CDT CPT-J3420 Vitamin B12 1000mcg (Cyanocobalamin) 09:49:14 CDT CPT-65445 Abx/Therapy Injection 09:49:14 CDT CPT-J3420 Vitamin B12 1000mcg (Cyanocobalamin) 09:10:30 GAMEPLAY PROGRAMMER CPT-33051 Abx/Therapy Injection 09:10:30 GAMEPLAY PROGRAMMER CPT-J3420 Vitamin B12 1000mcg (Cyanocobalamin) 09:11:07 GAMEPLAY PROGRAMMER CPT-23474 Abx/Therapy Injection 09:11:07 GAMEPLAY PROGRAMMER CPT-J3420 Vitamin B12 1000mcg (Cyanocobalamin) 09:57:03 GAMEPLAY PROGRAMMER CPT-81258 Abx/Therapy Injection 09:57:03 GAMEPLAY PROGRAMMER CPT-J3420 Vitamin B12 1000mcg (Cyanocobalamin) 09:23:21 GAMEPLAY PROGRAMMER CPT-17155 Abx/Therapy Injection 09:23:21 GAMEPLAY PROGRAMMER CPT-37487 Urine Dip (Floor Use Only) 20:21:44 GAMEPLAY PROGRAMMER 201 02/12/11 CPT-09104 UA Dip Auto (Floor Use Only) 10:04:39 GAMEPLAY PROGRAMMER 2 CPT-68098 Urine Dip (Floor Use Only) 13:27:28 GAMEPLAY PROGRAMMER 201 02/12/01 CPT-70133 Bladder Scan 13:27:28 GAMEPLAY PROGRAMMER CPT-02374 Abd single AP View 14:30:51 GAMEPLAY PROGRAMMER CPT-OV Office Visit 10:15:43 CDT CPT-05189 Urine Dip (Floor Use Only) 17:22:21 CDT 201 02/09/02 CPT-03722 Bladder Scan 17:22:21 CDT
--- OUTSIDE RECORDS SUMMARY | 2020-05-05 12:16 | XMS REPORT | Clinical Summary ---
Author Author Jeri Hanley Organization [employer] Address Unknown Phone Unavailable Allergies, Adverse Reactions, [...] up to full dose 2 VENLAFAXINE HCL 47222609841 Active Chelsea Barba APRN Activ e DIFLUCAN 100 MG TAB 1 tablet by mouth daily FLU CONAZOLE 72979589028 No Longer Active Tesfaye Sherman MD Active BACTRIM DS 800-160 MG TAB 1 tab by mouth twice daily 2 TRIMETHOPRIM-SULFAMETHOXAZOLE 10475892057 No Longer Active Tesfaye Sherman MD Active BACTRIM DS 800-160 MG TAB 1 tab by mouth twice daily 2 TRIMETHOPRIM-SULFAMETHOXAZOLE 08880072374 No Longer Active Tesfaye Sherman MD Active DIFLUCAN 150 MG TAB 1 tablet by mouth daily FLU CONAZOLE 12581481598 No Longer Active Tesfaye Sherman MD Active BACTRIM DS 800-160 MG TAB 1 tab by mouth twice daily 2 TRIMETHOPRIM-SULFAMETHOXAZOLE 40293001182 No Longer Active Tesfaye Sherman MD Active ROPINIROLE HCL 0.25 MG ORAL TABS 1 TAB PO Q HS ROPINIROLE HCL 24828525376 Active Tesfaye Sherman MD Active CYMBALTA 30 MG CPEP 1 cap by mouth daily with 60mg DULOXETINE HCL 84520647709 Active Tesfaye Sherman MD Active CEFTIN 250 MG TAB 1 tablet twice daily x 7 days 11/19 CEFUROXIME AXETIL 84287243703 No Longer Active Tesfaye Sherman MD Acti ve DIFLUCAN 100 MG TABS 1 tablet by mouth every other day for 2 dos es FLUCONAZOLE 69510273897 No Longer Active Tesfaye Sherman MD Active DIFLUCAN 100 MG TAB 1 tablet by mouth daily X 3 DAYS 2 FLUCONAZOLE 36751316976 No Longer Active Rj Moss DO Active MIRTAZAPINE 15 MG ORAL TABS 1/2 tab by mouth at bedtime. MIRTAZAPINE 13030029765 No Longer Active Tesfaye Sherman MD Acti ve BACTRIM DS 800-160 MG TAB 1 tab by mouth twice daily 2 TRIMETHOPRIM-SULFAMETHOXAZOLE 69682219347 No Longer Active Tesfaye Sherman MD Active PRAMIPEXOLE DIHYDROCHLORIDE 0.125 MG ORAL TABS take 1 tablet po qhs for restless leg syndrome. PRAMIPEXOLE DIHYDROCHLORIDE 19451324172 No Longer Active Tesfaye Sherman MD Active MAGNESIUM 400 MG ORAL TABS 1 tab po daily MAGNESI UM 44997172684 Active Chelsea Barba APRN Active SUDAFED 24 HOUR 240 MG ORAL [id number] 1 tab po daily PSEUDOEPHEDRINE HCL 72780333243 Active Chelsea Barba APRN A ctive CETIRIZINE HCL 5 MG TABS Take 1 tablet by mouth daily CETIRIZINE HCL 32646887522 No Longer Active Chelsea Barba APRN Acti ve TRIMETHOPRIM 100 MG TABS 1/2 qd TRIMETHOPRIM 50882418506 No Longer Active Chelsea Barba APRN Active BACTRIM DS 800-160 MG TAB 1 tab by mouth twice daily 2 TRIMETHOPRIM-SULFAMETHOXAZOLE 93547609656 No Longer Active Tesfaye Sherman MD Active BACTRIM DS 800-160 MG TAB 1 tab by mouth twice daily X 10 DAYS 2 TRIMETHOPRIM-SULFAMETHOXAZOLE 48315692820 No Longer Active Umer Sherman MD Active AMOXICILLIN 500 MG CAPS 1 cap by mouth three times a day AMOXICILLIN 22130797248 No Longer Active Adriana Arredondo Active MECLIZINE HCL 25 MG TAB one tab po qday prn dizziness MECLIZINE HCL 17983544232 Active Tesfaye Sherman MD Active B-12 1000 MCG ORAL LOZG 1 tab po daily CYANOCOBAL STANTON 30816818398 Active Tesfaye Sherman MD Active VITAMIN D3 2000 UNIT TABS 1 daily, for vitamin D deficiency 2014 CHOLECALCIFEROL 05405097297 No Longer Active Tesfaye Sherman MD Active TIZANIDINE HCL 2 MG TABS take 1-2 tablet by mouth ev at bedtime at 9pm PRN TIZANIDINE HCL 76530283448 Active Tesfaye Owusu Active ZITHROMAX 250 MG TAB 2 po today, then 1 po q days 2-5 AZITHROMYCIN 49243327641 No Longer Active Tesfaye Sherman MD Acti ve BACTRIM DS 800-160 MG TAB 1 tab by mouth twice daily 2 TRIMETHOPRIM-SULFAMETHOXAZOLE 02207805398 No Longer Active Tesfaye Sherman MD Active PRELIEF 340 (65-50) MG (CA-P) ORAL TABS CALCIUM GLYCEROPHOSPHATE 32610565554 Active Tesfaye Sherman MD Active [facility] NIACIN FLUSH FREE 400-100 MG CAPS 1 daily NIACIN-INOSITOL 08265764178 Active Kayla Cooper MD Active DIFLUCAN 150 MG TABS 1 qd FLUCONAZOLE 27767 566204 No Longer Active Kayla Cooper MD Active FLUTICASONE PROPIONATE 50 MCG/ACT SUSP 1 spray each nostril twice daily FLUTICASONE PROPIONATE 99602684090 Active Tesfaye armenta MD Active LOVASTATIN 20 MG TABS Take 1 tablet by mouth daily LOVASTATIN 08166504618 No Longer Active Tesfaye Sherman MD Active MELOXICAM 7.5 MG TABS 1 tablet by mouth daily Gisela ELOXICAM 14248161883 No Longer Active Tesfaye Sherman MD Active GABAPENTIN 300 MG CAPS Take two tablets by mouth every evening GABAPENTIN 63161817630 No Longer Active Edith Burch MD Active OXYCODONE-ACETAMINOPHEN 5-325 MG TABS Take one tablet by mouth every 6 hours as needed. Max 12 tabs/day as needed OXYCODONE-ACETAMINOP HEN 99577825759 Active Tesfaye Sherman MD Active CYMBALTA 60 MG CPEP Take 1 tablet by mouth daily D ULOXETINE HCL 30622913350 Active Kayla Cooper MD Active CLONAZEPAM 0.5 MG TABS Take one tablet in the morning and 1.5 table t at 7pm CLONAZEPAM 84450694585 Active Kayla Cooper MD Active BACLOFEN 10 MG TABS Take one tablet by mouth three times a day BACLOFEN 61678160632 Active Kayla Cooper MD Active GABAPENTIN 300 MG CAPS Take two tablets by mouth every evening GABAPENTIN 300 MG CAPS 867339 GABAPENTIN Inactive MELOXICAM 7.5 MG TABS 1 tablet by mouth daily MELOXICAM 7.5 MG TABS 968681 MELOXICAM Inactive LOVASTATIN 20 MG TABS Take 1 tablet by mouth daily 201 02/12/20 LOVASTATIN 20 MG TABS 233101 LOVASTATIN Inactive DIFLUCAN 150 MG TABS 1 qd DIFLUCAN 150 MG T ABS 207623 FLUCONAZOLE Inactive VITAMIN D3 2000 UNIT TABS 1 daily, for vitamin D deficiency 2014 VITAMIN D3 2000 UNIT TABS CHOLECALCIFEROL Inacti ve AMOXICILLIN 500 MG CAPS 1 cap by mouth three times a day AMOXICILLIN 500 MG CAPS 959406 AMOXICILLIN Inactive BACTRIM DS 800-160 MG TAB 1 tab by mouth twice daily X 10 DAYS 2 BACTRIM DS 800-160 MG TAB 19830105 TRIMETHOPRIM-SULFAMETH OXAZOLE Inactive TRIMETHOPRIM 100 MG TABS 1/2 qd TRIMETHOPRI M 100 MG TABS 784657 TRIMETHOPRIM Inactive CETIRIZINE HCL 5 MG TABS Take 1 tablet by mouth daily CETIRIZINE HCL 5 MG TABS 3865911 CETIRIZINE HCL Inactive PRAMIPEXOLE DIHYDROCHLORIDE 0.125 MG ORAL TABS take 1 tablet po qhs for restless leg syndrome. PRAMIPEXOLE DIHYDROC HLORIDE 0.125 MG ORAL TABS 040953 PRAMIPEXOLE DIHYDROCHLORIDE Inactive MIRTAZAPINE 15 MG ORAL TABS 1/2 tab by mouth at bedtime. MIRTAZAPINE 15 MG ORAL TABS 156006 MIRTAZAPINE Inactive DIFLUCAN 100 MG TAB 1 tablet by mouth daily X 3 DAYS 2 DIFLUCAN 100 MG TAB 998122 FLUCONAZOLE Inactive DIFLUCAN 100 MG TABS 1 tablet by mouth every other day for 2 dos es DIFLUCAN 100 MG TABS 329306 FLUCONAZOLE Inactive CEFTIN 250 MG TAB 1 tablet twice daily x 7 days 11/19 CEFTIN 250 MG TAB 730722 CEFUROXIME AXETIL Inactive BACTRIM DS 800-160 MG TAB 1 tab by mouth twice daily 2 BACTRIM DS 800-160 MG TAB 19830105 TRIMETHOPRIM-SULFAMETHOXAZOLE Inac tive ZITHROMAX 250 MG TAB 2 po today, then 1 po q days 2-5 ZITHROMAX 250 MG TAB 3675607 AZITHROMYCIN Inactive BACTRIM DS 800-160 MG TAB [...] daily 2 BACTRIM DS 800-160 MG TAB 574232 TRIMETHOPRIM-SULFAMETHOXAZOLE Inac tive DIFLUCAN 100 MG TAB 1 tablet by mouth daily DIFLUCAN 100 MG TAB 201624 FLUCONAZOLE Inactive Advance Directives Directive Description Start [...] Urinalysis glucose, urine, semiquantitative Negative Neg ative urine color Light yellow Colorless;Lightyellow; Straw;Yellow ketones, urine, by test strip Negative Negati [...] Negative Negati ve bilirubin, urine Negative Negative pH, urine, semiquantitative 8.0 5.0-8.5 specific gravity, urine 1.010 1.000-1.030 appearance, urine Clear Clear urine color Yellow Colorless;Lightyellow;St raw;Yellow Office Visit: 3 MONTH FU - Basic LDL target level 160 mg/dL Office Visit: 3 MONTH FU - Chemistry HDL cholesterol, serum, target level 40 mg/dL triglyceride, target level 150 mg/dL cholesterol, target level 200 mg/dL Encounters Code Encounter Date Provider Facility CPT-13147 Level 4 Est. Patient 09:14:56 CDT Tesfaye pearson MD [facility] CPT-76504 Level 4 Est. Patient 18:40:25 [employer] Tesfaye pearson MD [facility] CPT-64462 Level 4 Est. Patient 18:13:07 [employer] Tesfaye pearson MD [facility] CPT-59661 Level 3 Est. Patient 10:46:32 CDT Rj cotto DO [facility] CPT-21299 Level 4 Est. Patient 20:19:25 CDT Tesfaye pearson MD [facility] CPT-87282 Level 3 Est. Patient 09:07:31 CDT Tesfaye pearson MD [facility] CPT-22287 Level 4 Est. Patient 13:12:56 CDT Tesfaye pearson MD [facility] CPT-17196 Level 4 Est. Patient 21:24:55 [employer] Tesfaye pearson MD [facility] CPT-15027 Level 3 Est. Patient 13:45:04 [employer] Tesfaye pearson MD [facility] CPT-44052 Level 4 Est. Patient 13:50:45 CDT Tesfaye pearson MD [facility] CPT-33640 Level 3 Est. Patient 10:16:10 CDT Tesfaye pearson MD [facility] CPT-37074 Level 3 Est. Patient 16:36:07 [employer] Kayla jameson MD [facility] CPT-94187 Level 4 Est. Patient 16:00:14 [employer] Tesfaye pearson MD [facility] CPT-32327 Level 4 Est. Patient 11:02:24 [employer] Tesfaye pearson MD [facility] CPT-51319 Level 3 Est. Patient 20:21:43 [employer] Kayla jameson MD [facility] CPT-50777 Level 3 Est. Patient 13:27:28 [employer] Kayla jameson MD [facility] CPT-28700 Level 4 Est. Patient 15:57:17 [employer] Tesfaye pearson MD [facility] CPT-76791 Level 3 New Patient 13:25:47 CDT Tesfaye kidd MD [facility] CPT-95790 Level 3 New Patient 17:22:21 CDT J John angel MD [facility] Procedures Code Procedure Name Date Entry Date Standard Desc ription CPT-95776 Foot, right, comp min 3V - XRAY USE ONLY 10:38:34 CDT CPT-G0439 Subsequent Annual Wellness Exam 13:55:04 CDT CPT-G0438 Initial Annual Wellness Exam 11:23:17 CD T CPT-J2930 Solu Medrol 125 mg (Methyl Prednisolone Sodium Succinate) 17:29:12 [employer] CPT-36362 Abx/Therapy Injection 17:29:11 [employer] CPT-J2930 Solu Medrol 125 mg (Methyl Prednisolone Sodium Succinate) 12:34:38 [employer] CPT-J3420 Vitamin B12 1000mcg (Cyanocobalamin) 09:12:55 CDT CPT-J3420 Vitamin B12 1000mcg (Cyanocobalamin) 16:28:06 [employer] CPT-95950 Venipuncture Draw Fee 08:39:53 CDT CPT-J3420 Vitamin B12 1000mcg (Cyanocobalamin) 08:46:22 CDT CPT-20887 Abx/Therapy Injection 08:46:22 CDT CPT-J3420 Vitamin B12 1000mcg (Cyanocobalamin) 08:41:26 CDT CPT-87816 Abx/Therapy Injection 08:41:26 CDT CPT-J3420 Vitamin B12 1000mcg (Cyanocobalamin) 08:57:15 CDT CPT-59988 Abx/Therapy Injection 08:57:15 CDT CPT-J3420 Vitamin B12 1000mcg (Cyanocobalamin) 10:59:03 CDT CPT-49238 Abx/Therapy Injection 10:59:03 CDT CPT-J3420 Vitamin B12 1000mcg (Cyanocobalamin) 15:05:39 CDT CPT-64350 Abx/Therapy Injection 15:05:39 CDT CPT-J3420 Vitamin B12 1000mcg (Cyanocobalamin) 13:50:45 CDT CPT-J3420 Vitamin B12 1000mcg (Cyanocobalamin) 08:48:55 CDT CPT-37032 Abx/Therapy Injection 08:48:55 CDT CPT-J3420 Vitamin B12 1000mcg (Cyanocobalamin) 09:14:54 CDT CPT-61347 Abx/Therapy Injection 09:14:54 CDT CPT-J3420 Vitamin B12 1000mcg (Cyanocobalamin) 09:06:06 CDT CPT-74099 Abx/Therapy Injection 09:06:06 CDT CPT-J3420 Vitamin B12 1000mcg (Cyanocobalamin) 09:49:14 CDT CPT-80560 Abx/Therapy Injection 09:49:14 CDT CPT-J3420 Vitamin B12 1000mcg (Cyanocobalamin) 09:10:30 [employer] CPT-13518 Abx/Therapy Injection 09:10:30 [employer] CPT-J3420 Vitamin B12 1000mcg (Cyanocobalamin) 09:11:07 [employer] CPT-88825 Abx/Therapy Injection 09:11:07 [employer] CPT-J3420 Vitamin B12 1000mcg (Cyanocobalamin) 09:57:03 [employer] CPT-89574 Abx/Therapy Injection 09:57:03 [employer] CPT-J3420 Vitamin B12 1000mcg (Cyanocobalamin) 09:23:21 [employer] CPT-86976 Abx/Therapy Injection 09:23:21 [employer] CPT-94067 Urine Dip (Floor Use Only) 20:21:44 [employer] 201 02/12/11 CPT-76662 UA Dip Auto (Floor Use Only) 10:04:39 [employer]ER 2 CPT-36595 Urine Dip (Floor Use Only) 13:27:28 [employer] 201 02/12/01 CPT-83865 Bladder Scan 13:27:28 [employer] CPT-03213 Abd single AP View 14:30:51 [employer] CPT-OV Office Visit 10:15:43 CDT CPT-88117 Urine Dip (Floor Use Only) 17:22:21 CDT 201 02/09/02 CPT-63834 Bladder Scan 17:22:21 CDT
--- OUTSIDE RECORDS SUMMARY | 2020-05-05 12:17 | XMS REPORT | Clinical Summary ---
Author Author Talon, Jeri Wood Organization [employer] Address Unknown Phone Unavailable Allergies, Adverse Reactions, [...] epi sode, unspecified degree URI 465.9 Active Tesafye Sherman MD Acute upper respiratory infections of unspecified site Osteopenia 733.90 Active Tesfaye Sherman MD Disorder of bone and cartilage, unspecified Medication List Medication Instructions Start Date Stop Date Generic Name NDC Status Provider Patient Instruction OXYCODONE-ACETAMINOPHEN 5-325 MG ORAL TABLET Take one tablet by mouth every 6 hours as needed. Use sparingly OXYCODONE-ACETAMINOPHEN 99293244037 Active Tesfaye Sherman MD Active PREDNISONE 20 MG ORAL TABLET 1 tab twice daily for 3 d ay, then one daily for three days PREDNISONE 33645618175 No Longer Active Tesfaye Sherman MD Active PROAIR HFA 108 (90 BASE) MCG/ACT INHALATION AEROSOL SO LUTION 1 puff every 6 hours as needed ALBUTEROL SULFATE 73513444378 Active Redford nda Raida Active MECLIZINE HCL 25 MG ORAL TABLET one 4 times a day as needed for dizziness MECLIZINE HCL 98119051292 Active Laurence Raida Active DIFLUCAN 100 MG ORAL TABLET 1 tablet by mouth daily FLUCONAZOLE 01747875915 Active Laurence Raida Active AMOXICILLIN 500 MG ORAL CAPSULE 1 cap by mouth three times a day AMOXICILLIN 54118529872 No Longer Active Laurecne Raida Acti ve VENLAFAXINE HCL 75 MG ORAL TABLET 1 am 1/2 at noon VENLAFAXINE HCL 01650663209 Active Tesfaye Sherman MD Active DIFLUCAN 100 MG ORAL TABLET 1 tablet by mouth daily 20 19/08/26 FLUCONAZOLE 70873274146 No Longer Active Tesfaye Sherman MD Acti ve BACTRIM DS 800-160 MG ORAL TABLET 1 tab by mouth twice daily 201 05/10/28 TRIMETHOPRIM-SULFAMETHOXAZOLE 52893888757 No Longer Active Fer mirna Angelica Active FOSAMAX 70 MG ORAL TABLET 1 po qweek. Take 30min prio r to first food/drink. Avoid lying down x 1 hour. ALENDRONATE SODIUM 58211308 144 No Longer Active Laurence Lopezduyen Active REPHRESH PRO-B ORAL CAPSULE 1 tablet daily LACT OBACILLUS 65922438932 Active Edith Burch MD Active CYMBALTA 60 MG ORAL CAPSULE DELAYED RELEASE PARTICLES Take 1 tablet by mouth daily DULOXETINE HCL 67732596680 No Longer Active Edith Burch MD Active CYMBALTA 30 MG ORAL CAPSULE DELAYED RELEASE PARTICLES 1 cap by mouth daily with 60mg DULOXETINE HCL 21135712914 No Longer Active Jordan Burch MD Active FISH OIL 1000 MG ORAL CAPSULE DELAYED RELEASE 1 pill b y mouth daily for cholesterol OMEGA-3 FATTY ACIDS 78620038636 Active Cee Jaffe LPN Active RED YEAST RICE 600 MG ORAL CAPSULE 1 pill by mouth daily RED YEAST RICE EXTRACT 19973750754 Active Rosa Jaffe LPN Activ e DIFLUCAN 100 MG ORAL TABLET 1 tablet by mouth daily 20 19/03/05 FLUCONAZOLE 61519421007 No Longer Active Tesfaye Sherman MD Acti ve BACTRIM DS 800-160 MG ORAL TABLET 1 tab by mouth twice daily 201 05/06/28 TRIMETHOPRIM-SULFAMETHOXAZOLE 01659304220 No Longer Active Umer Sherman MD Active BACTRIM DS 800-160 MG ORAL TABLET 1 tab by mouth twice daily 201 05/04/15 TRIMETHOPRIM-SULFAMETHOXAZOLE 62383849168 No Longer Active Umer Sherman MD Active DIFLUCAN 150 MG ORAL TABLET 1 tablet by mouth daily 20 18/09/20 FLUCONAZOLE 27032421028 No Longer Active Tesfaye Sherman MD Acti ve BACTRIM DS 800-160 MG ORAL TABLET 1 tab by mouth twice daily 201 04/13/17 TRIMETHOPRIM-SULFAMETHOXAZOLE 92721965385 No Longer Active Umer Sherman MD Active ROPINIROLE HCL 0.25 MG ORAL TABLET 1 TAB PO Q HS ROPINIROLE HCL 85238353520 Active Tesfaye Sherman MD Active CEFTIN 250 MG ORAL TABLET 1 tablet twice daily x 7 days CEFUROXIME AXETIL 69194177973 No Longer Active Tesfaye Sherman MD Active DIFLUCAN 100 MG ORAL TABLET 1 tablet by mouth every other da y for 2 doses FLUCONAZOLE 05726456492 No Longer Active Tesfaye barron MD Active DIFLUCAN 100 MG ORAL TABLET 1 tablet by mouth daily X 3 DAYS 201 04/09/01 FLUCONAZOLE 45840454484 No Longer Active Rj Lyons tive MIRTAZAPINE 15 MG ORAL TABLET 1/2 tab by mouth at bedtime. 03/13 MIRTAZAPINE 66210301255 No Longer Active Tesfaye Sherman MD Active BACTRIM DS 800-160 MG ORAL TABLET 1 tab by mouth twice daily 201 04/09/01 TRIMETHOPRIM-SULFAMETHOXAZOLE 40964067245 No Longer Active Umer Sherman MD Active PRAMIPEXOLE DIHYDROCHLORIDE 0.125 MG ORAL TABLET take 1 tablet po qhs for restless leg syndrome. PRAMIPEXOLE DIHYDROCHLORI DE 35813252794 No Longer Active Tesfaye Sherman MD Active MAGNESIUM 400 MG ORAL TABLET 1 tab po daily MAGNE SIUM 99961439110 Active Chelsea Barba APRN Active SUDAFED 24 HOUR 240 MG ORAL TABLET EXTENDED RELEASE 24 HOUR 1 tab po daily PSEUDOEPHEDRINE HCL 52352568569 Active Chelsea NAPOLES RN Active CETIRIZINE HCL 5 MG ORAL TABLET Take 1 tablet by mouth daily CETIRIZINE HCL 88172685074 No Longer Active Chelsea Barba APRN Ac tive TRIMETHOPRIM 100 MG ORAL TABLET 1/2 qd TRIM ETHOPRIM 13061113014 No Longer Active Chelsea Barba APRN Active BACTRIM DS 800-160 MG ORAL TABLET 1 tab by mouth twice daily 201 04/04/11 TRIMETHOPRIM-SULFAMETHOXAZOLE 70469798009 No Longer Active Umer Sherman MD Active BACTRIM DS 800-160 MG ORAL TABLET 1 tab by mouth twice daily X 10 DAYS TRIMETHOPRIM-SULFAMETHOXAZOLE 97080864158 No Longer Active Tesfaye Sherman MD Active AMOXICILLIN 500 MG ORAL CAPSULE 1 cap by mouth three times a day AMOXICILLIN 72301972829 No Longer Active Adriana Arredondo Active MECLIZINE HCL 25 MG ORAL TABLET one tab po qday prn dizziness 09/08 MECLIZINE HCL 28481186520 Active Tesfaye Sherman MD Active B-12 1000 MCG ORAL LOZENGE 1 tab po daily CYANO COBALAMIN 65100515692 Active Tesfaye Sherman MD Active VITAMIN D3 2000 UNIT ORAL TABLET 1 daily, for vitamin D deficien cy CHOLECALCIFEROL 05026622794 No Longer Active Tesfaye Sherman MD Active TIZANIDINE HCL 2 MG ORAL TABLET take 1-2 tablet by mo [facility] every day at bedtime at 9pm PRN TIZANIDINE HCL 68970562670 Active Tesfaye hewitt MD Active ZITHROMAX 250 MG ORAL TABLET 2 po today, then 1 po q days 2-5 20 15/02/10 AZITHROMYCIN 19225850566 No Longer Active Tesfaye Sherman MD Active BACTRIM DS 800-160 MG ORAL TABLET 1 tab by mouth twice daily 201 03/03/23 TRIMETHOPRIM-SULFAMETHOXAZOLE 02387987866 No Longer Active Umer Sherman MD Active PRELIEF 340 (65-50) MG (CA-P) ORAL TABLET CALCIUM GLYCEROPHOSPHATE 60116874643 Active Tesfaye Sherman MD Acti ve [facility] NIACIN FLUSH FREE 400-100 MG ORAL CAPSULE 1 daily NIACIN-INOSITOL 40562972904 Active Kayla Cooper MD Activ e DIFLUCAN 150 MG ORAL TABLET 1 qd FLUCONAZOL E 60027379107 No Longer Active Kayla Cooper MD Active FLUTICASONE PROPIONATE 50 MCG/ACT NASAL SUSPENSION 1 spray each nostril twice daily FLUTICASONE PROPIONATE 68702535809 Active D patricia Sherman MD Active LOVASTATIN 20 MG ORAL TABLET Take 1 tablet by mouth daily LOVASTATIN 60932434806 No Longer Active Tesfaye Sherman MD Acti ve MELOXICAM 7.5 MG ORAL TABLET 1 tablet by mouth daily 2 MELOXICAM 81916811379 No Longer Active Tesfaye Sherman MD Acti ve GABAPENTIN 300 MG ORAL CAPSULE Take two tablets by mouth every e vening GABAPENTIN 13606176043 No Longer Active Edith Burch MD A ctive CLONAZEPAM 0.5 MG ORAL TABLET Take one tablet in the m orning and 1.5 tablet at 7pm CLONAZEPAM 36768974956 Active Kayla Cooper MD Active BACLOFEN 10 MG ORAL TABLET Take one tablet by mouth three times a d ay BACLOFEN 21590120388 Active Kayla Cooper MD Active GABAPENTIN 300 MG ORAL CAPSULE Take two tablets by mouth every e vening GABAPENTIN 300 MG ORAL CAPSULE 900760 GABAPENTIN I nactive MELOXICAM 7.5 MG ORAL TABLET 1 tablet by mouth daily 2 MELOXICAM 7.5 MG ORAL TABLET 361789 MELOXICAM Inactive LOVASTATIN 20 MG ORAL TABLET Take 1 tablet by mouth daily LOVASTATIN 20 MG ORAL TABLET 534441 LOVASTATIN Inactive DIFLUCAN 150 MG ORAL TABLET 1 qd DIFLUCAN 150 MG ORAL TABLET 333898 FLUCONAZOLE Inactive VITAMIN D3 2000 UNIT ORAL TABLET 1 daily, for vitamin D deficien cy VITAMIN D3 2000 UNIT ORAL TABLET CHOLECALCIFEROL Inactive AMOXICILLIN 500 MG ORAL CAPSULE 1 cap by mouth three times a day AMOXICILLIN 500 MG ORAL CAPSULE 622447 AMOXICILLIN Inactive BACTRIM DS 800-160 MG ORAL TABLET 1 tab by mouth twice daily X 10 DAYS BACTRIM DS 800-160 MG ORAL TABLET 713626 TRIMETHOPRIM-SULFAMETHOXAZOLE Inactive TRIMETHOPRIM 100 MG ORAL TABLET 1/2 qd 7 TRIMETHOPRIM 100 MG ORAL TABLET 113430 TRIMETHOPRIM Inactive CETIRIZINE HCL 5 MG ORAL TABLET Take 1 tablet by mouth daily CETIRIZINE HCL 5 MG ORAL TABLET 6828413 CETIRIZINE HCL Inactive PRAMIPEXOLE DIHYDROCHLORIDE 0.125 MG ORAL TABLET take 1 tablet po qhs for restless leg syndrome. PRAMIPEXOLE DIHYD ROCHLORIDE 0.125 MG ORAL TABLET 202280 PRAMIPEXOLE DIHYDROCHLORIDE Inactive MIRTAZAPINE 15 MG ORAL TABLET 1/2 tab by mouth at bedtime. 03/13 MIRTAZAPINE 15 MG ORAL TABLET 893287 MIRTAZAPINE In active DIFLUCAN 100 MG ORAL TABLET 1 tablet by mouth daily X 3 DAYS 201 04/09/01 DIFLUCAN 100 MG ORAL TABLET 963055 FLUCONAZOLE Inac tive DIFLUCAN 100 MG ORAL TABLET 1 tablet by mouth every other da y for 2 doses DIFLUCAN 100 MG ORAL TABLET 608090 FLUCONAZOLE Inactive CEFTIN 250 MG ORAL TABLET 1 tablet twice daily x 7 days CEFTIN 250 MG ORAL TABLET 957111 CEFUROXIME AXETIL Inactive CYMBALTA 30 MG ORAL CAPSULE DELAYED RELEASE PARTICLES 1 cap by mouth daily with 60mg CYMBALTA 30 MG ORAL CAPSULE DELAYED RELEASE PARTICLES 743609 DULOXETINE HCL Inactive CYMBALTA 60 MG ORAL CAPSULE DELAYED RELEASE PARTICLES Take 1 tablet by mouth daily CYMBALTA 60 MG ORAL CAPSULE DELAYED RELEA SE PARTICLES 196587 DULOXETINE HCL Inactive FOSAMAX 70 MG ORAL TABLET 1 po qweek. Take 30min prio r to first food/drink. Avoid lying down x 1 hour. FOSAMAX 70 MG ORAL TA BLET 324805 ALENDRONATE SODIUM Inactive DIFLUCAN 100 MG ORAL TABLET 1 tablet by mouth daily 19/08/26 DIFLUCAN 100 MG ORAL TABLET 530427 FLUCONAZOLE Inactive PREDNISONE 20 MG ORAL TABLET 1 tab twice daily for 3 d ay, then one daily for three days PREDNISONE 20 MG ORAL TABLET 139608 PREDNIS ONE Inactive BACTRIM DS 800-160 MG ORAL TABLET 1 tab by mouth twice daily 201 03/03/23 BACTRIM DS 800-160 MG ORAL TABLET 19830105 TRIMETHOPRIM-SULFAMETHOXAZOLE Inactive ZITHROMAX 250 MG ORAL TABLET 2 po today, then 1 po q days 2-5 20 15/02/10 ZITHROMAX 250 MG ORAL TABLET 463813 AZITHROMYCIN Mayela ctive BACTRIM DS 800-160 MG ORAL TABLET 1 tab by mouth twice daily 201 04/04/11 BACTRIM DS 800-160 MG ORAL TABLET 19830105 TRIMETHOPRIM-SULFAMETHOXAZOLE Inactive BACTRIM DS 800-160 MG ORAL TABLET 1 tab by mouth twice daily 201 04/09/01 BACTRIM DS 800-160 MG ORAL TABLET 931197 TRIMETHOPRIM-SULFAMETHOXAZOLE Inactive BACTRIM DS 800-160 MG ORAL TABLET 1 tab by mouth twice daily 201 04/13/17 BACTRIM DS 800-160 MG ORAL TABLET 725576 TRIMETHOPRIM-SULFAMETHOXAZOLE Inactive DIFLUCAN 150 MG ORAL TABLET 1 tablet by mouth daily 20 18/09/20 DIFLUCAN 150 MG ORAL TABLET 19760712 FLUCONAZOLE Inactive BACTRIM DS 800-160 MG ORAL TABLET 1 tab by mouth twice daily 201 05/04/15 BACTRIM DS 800-160 MG ORAL TABLET 653761 TRIMETHOPRIM-SULFAMETHOXAZOLE Inactive BACTRIM DS 800-160 MG ORAL TABLET 1 tab by mouth twice daily 201 05/06/28 BACTRIM DS 800-160 MG ORAL TABLET 087559 TRIMETHOPRIM-SULFAMETHOXAZOLE Inactive DIFLUCAN 100 MG ORAL TABLET 1 tablet by mouth daily 20 19/03/05 DIFLUCAN 100 MG ORAL TABLET 19760711 FLUCONAZOLE Inactive BACTRIM DS 800-160 MG ORAL TABLET 1 tab by mouth twice daily 201 05/10/28 BACTRIM DS 800-160 MG ORAL TABLET 19830105 TRIMETHOPRIM-SULFAMETHOXAZOLE Inactive AMOXICILLIN 500 MG ORAL CAPSULE 1 cap by mouth three times a day AMOXICILLIN 500 MG ORAL CAPSULE 293344 AMOXICILLIN Inactive Advance Directives Directive Description Start Date PERMISSION TO SHARE DISCUSSED WITH PATIENT -- NO DECISION MADE DURABLE POWER OF [facility] [facility] FOR HEALTHCARE Vital Signs Date Name Value [...] ... - Chemistry sodium, serum 144 mmol/L 496-659 9343/06/14 carbon dioxide, venous blood 29.4 mmol/L 21.0-32 .0 potassium, serum 4.4 mmol/L 3.5-5.2 chloride, serum 108 mmol/L 98-107 blood glucose 100 mg/dL 65-110 urea nitrogen, blood 9 mg/dL 7-18 creatinine, serum 0.67 mg/dL 0.55-1.30 alanine aminotransferase (SGPT), serum 24 U/L 12-78 aspartate aminotransferase (SGOT), serum 15 U/L 15-37 calcium, serum 9.3 mg/dL 8.5-10.1 bilirubin, serum, total 0.50 mg/dL 0.00-1.00 cholesterol, serum 268 mg/dL 540-178 9692/06/14 triglyceride, serum, fasting 126 mg/dL 30-200 HDL cholesterol, serum 51 mg/dL 32-96 LDL cholesterol, serum 192 mg/dL 0-130 TSH 0.83 m[iU]/mL 0.36-3.74 thyroxine, serum, free 1.03 ng/dL 0.76-1.46 uric acid, serum 3.2 mg/dL 2.6-7.2 Lab Report: Comp. Metabolic Panel, [facility] - Chemistry sodium, serum 141 mmol/L 331-266 1611/01/26 carbon dioxide, venous blood 29.5 mmol/L 21.0-32 [...] mg/dL Encounters Code Encounter Date Provider Facility CPT-22570 Level 4 Est. Patient 14:44:33 FINGERPRINT TECHNICIAN Tesfaye pearson MD [facility] CPT-12707 Level 4 Est. Patient 13:55:29 FINGERPRINT TECHNICIAN Tesfaye pearson MD [facility] CPT-91904 Level 4 Est. Patient 17:07:34 FINGERPRINT TECHNICIAN Tesfaye pearson MD [facility] CPT-27757 Level 4 Est. Patient 13:56:54 CDT Tesfaye pearson MD [facility] CPT-97012 Level 4 Est. Patient 13:24:[address] [facility] CPT-79283 Level 4 Est. Patient 09:14:56 CDT Tesfaye pearson MD [facility] CPT-48179 Level 4 Est. Patient 18:40:25 FINGERPRINT TECHNICIAN Tesfaye pearson MD [facility] CPT-68366 Level 4 Est. Patient 18:13:07 FINGERPRINT TECHNICIAN Tesfaye pearson MD [facility] CPT-38002 Level 3 Est. Patient 10:46:32 CDT Rj cotto DO [facility] CPT-15849 Level 4 Est. Patient 20:19:25 CDT Tesfaye pearson MD [facility] CPT-72315 Level 3 Est. Patient 09:07:31 CDT Tesfaye pearson MD [facility]-50613 Level 4 Est. Patient 13:12:56 CDT Tesfaye pearson MD [facility]-42483 Level 4 Est. Patient 21:24:55 FINGERPRINT TECHNICIAN Tesfaye pearson MD [facility]-72350 Level 3 Est. Patient 13:45:04 FINGERPRINT TECHNICIAN Tesfaye pearson MD [facility] CPT-30342 Level 4 Est. Patient 13:50:45 CDT Tesfaye pearson MD [facility] CPT-51647 Level 3 Est. Patient 10:16:10 CDT Tesfaye pearson MD [facility] CPT-48641 Level 3 Est. Patient 16:36:07 FINGERPRINT TECHNICIAN Kayla jameson MD [facility]-71713 Level 4 Est. Patient 16:00:14 FINGERPRINT TECHNICIAN Tesfaye pearson MD [facility]-44996 Level 4 Est. Patient 11:02:24 FINGERPRINT TECHNICIAN Tesfaye pearson MD [facility]-66934 Level 3 Est. Patient 20:21:43 FINGERPRINT TECHNICIAN Kayla jameson MD [facility]-18570 Level 3 Est. Patient 13:27:28 FINGERPRINT TECHNICIAN Kayla jameson MD [facility]-85206 Level 4 Est. Patient 15:57:17 FINGERPRINT TECHNICIAN Tesfaye pearson MD [facility] CPT-64451 Level 3 New Patient 13:25:47 CDT Tesfaye kidd MD [facility] CPT-25592 Level 3 New Patient 17:22:21 CDT Kayla angel MD [facility] Procedures Code Procedure Name Date Entry Date Standard Desc ription CPT-47945 Bone Density - XRAY USE ONLY 11:43:58 CDT 2 CPT-57487 Bone Density - XRAY USE ONLY 10:05:16 CDT 2 CPT-56773 Prv Med New Pt 40-64 yrs 18:19:25 CDT 2016 CPT-33117 Foot, right, comp min 3V - XRAY USE ONLY 10:38:34 CDT CPT-G0439 Subsequent Annual Wellness Exam 13:55:04 CDT CPT-G0438 Initial Annual Wellness Exam 11:23:17 CD T CPT-J2930 Solu Medrol 125 mg (Methyl Prednisolone Sodium Succinate) 17:29:12 FINGERPRINT TECHNICIAN CPT-83725 Abx/Therapy Injection 17:29:11 FINGERPRINT TECHNICIAN CPT-J2930 Solu Medrol 125 mg (Methyl Prednisolone Sodium Succinate) 12:34:38 FINGERPRINT TECHNICIAN CPT-J3420 Vitamin B12 1000mcg (Cyanocobalamin) 09:12:55 CDT CPT-J3420 Vitamin B12 1000mcg (Cyanocobalamin) 16:28:06 FINGERPRINT TECHNICIAN CPT-99850 Venipuncture Draw Fee 08:39:53 CDT CPT-J3420 Vitamin B12 1000mcg (Cyanocobalamin) 08:46:22 CDT CPT-57785 Abx/Therapy Injection 08:46:22 CDT CPT-J3420 Vitamin B12 1000mcg (Cyanocobalamin) 08:41:26 CDT CPT-34798 Abx/Therapy Injection 08:41:26 CDT CPT-J3420 Vitamin B12 1000mcg (Cyanocobalamin) 08:57:15 CDT CPT-86526 Abx/Therapy Injection 08:57:15 CDT CPT-J3420 Vitamin B12 1000mcg (Cyanocobalamin) 10:59:03 CDT CPT-59895 Abx/Therapy Injection 10:59:03 CDT CPT-J3420 Vitamin B12 1000mcg (Cyanocobalamin) 15:05:39 CDT CPT-60704 Abx/Therapy Injection 15:05:39 CDT CPT-J3420 Vitamin B12 1000mcg (Cyanocobalamin) 13:50:45 CDT CPT-J3420 Vitamin B12 1000mcg (Cyanocobalamin) 08:48:55 CDT CPT-63657 Abx/Therapy Injection 08:48:55 CDT CPT-J3420 Vitamin B12 1000mcg (Cyanocobalamin) 09:14:54 CDT CPT-19712 Abx/Therapy Injection 09:14:54 CDT CPT-J3420 Vitamin B12 1000mcg (Cyanocobalamin) 09:06:06 CDT CPT-58745 Abx/Therapy Injection 09:06:06 CDT CPT-J3420 Vitamin B12 1000mcg (Cyanocobalamin) 09:49:14 CDT CPT-25191 Abx/Therapy Injection 09:49:14 CDT CPT-J3420 Vitamin B12 1000mcg (Cyanocobalamin) 09:10:30 FINGERPRINT TECHNICIAN CPT-22759 Abx/Therapy Injection 09:10:30 FINGERPRINT TECHNICIAN CPT-J3420 Vitamin B12 1000mcg (Cyanocobalamin) 09:11:07 FINGERPRINT TECHNICIAN CPT-10861 Abx/Therapy Injection 09:11:07 FINGERPRINT TECHNICIAN CPT-J3420 Vitamin B12 1000mcg (Cyanocobalamin) 09:57:03 FINGERPRINT TECHNICIAN CPT-96788 Abx/Therapy Injection 09:57:03 FINGERPRINT TECHNICIAN CPT-J3420 Vitamin B12 1000mcg (Cyanocobalamin) 09:23:21 FINGERPRINT TECHNICIAN CPT-74869 Abx/Therapy Injection 09:23:21 FINGERPRINT TECHNICIAN CPT-56537 Urine Dip (Floor Use Only) 20:21:44 FINGERPRINT TECHNICIAN 201 02/12/11 CPT-06325 UA Dip Auto (Floor Use Only) 10:04:39 FINGERPRINT TECHNICIAN 2 CPT-63939 Urine Dip (Floor Use Only) 13:27:28 FINGERPRINT TECHNICIAN 201 02/12/01 CPT-23300 Bladder Scan 13:27:28 FINGERPRINT TECHNICIAN CPT-85570 Abd single AP View 14:30:51 FINGERPRINT TECHNICIAN CPT-OV Office Visit 10:15:43 CDT CPT-73358 Urine Dip (Floor Use Only) 17:22:21 CDT 201 02/09/02 CPT-61986 Bladder Scan 17:22:21 CDT
--- OUTSIDE RECORDS SUMMARY | 2020-05-05 12:17 | XMS REPORT | Clinical Summary ---
Author Author Jeri Hanley Organization [employer] Address Unknown Phone Unavailable Allergies, Adverse Reactions, [...] Adriana Arredondo Dysuria Sinusitis 473.9 Active Tesfaye Sheramn MD Unspecified sinusitis (chronic) Dysuria 788.1 Active [...] ORAL CAPS 1 tablet daily LACTOBACI LLUS 67943778866 Active Edith Burch MD Active CYMBALTA 60 MG CPEP Take 1 tablet by mouth daily 1 DULOXETINE HCL 91670041890 No Longer Active Edith Burch MD Active CYMBALTA 30 MG CPEP 1 cap by mouth daily with 60mg 201 05/09/11 DULOXETINE HCL 09782000755 No Longer Active Edith Burch MD Activ e FISH OIL 1000 MG CPDR 1 pill by mouth daily for cholesterol 04/18 OMEGA- 3 FATTY ACIDS 74879778232 Active Rosa Jaffe LPN Acti ve RED YEAST RICE 600 MG CAPS 1 pill by mouth daily RED YEAST RICE EXTRACT 92865728106 Active Rosa Jaffe LPN Activ e VENLAFAXINE HCL 37.5 MG TABS 1/4 tab po titrating up to full dose 2 VENLAFAXINE HCL 01339487623 Active Chelsea Barba APRN Activ e DIFLUCAN 100 MG TAB 1 tablet by mouth daily FLU CONAZOLE 07172116629 No Longer Active Tesfaye Sherman MD Active BACTRIM DS 800-160 MG TAB 1 tab by mouth twice daily 2 TRIMETHOPRIM-SULFAMETHOXAZOLE 45988452098 No Longer Active Tesfaye Sherman MD Active BACTRIM DS 800-160 MG TAB 1 tab by mouth twice daily 2 TRIMETHOPRIM-SULFAMETHOXAZOLE 15382361148 No Longer Active Tesfaye Sherman MD Active DIFLUCAN 150 MG TAB 1 tablet by mouth daily FLU CONAZOLE 28563741092 No Longer Active Tesfaye Sherman MD Active BACTRIM DS 800-160 MG TAB 1 tab by mouth twice daily 2 TRIMETHOPRIM-SULFAMETHOXAZOLE 32395332162 No Longer Active Tesfaye Sherman MD Active ROPINIROLE HCL 0.25 MG ORAL TABS 1 TAB PO Q HS ROPINIROLE HCL 68565419193 Active Tesfaye Sherman MD Active CEFTIN 250 MG TAB 1 tablet twice daily x 7 days 11/19 CEFUROXIME AXETIL 03385746189 No Longer Active Tesfaye Sherman MD Acti ve DIFLUCAN 100 MG TABS 1 tablet by mouth every other day for 2 dos es FLUCONAZOLE 29821316268 No Longer Active Tesfaye Sherman MD Active DIFLUCAN 100 MG TAB 1 tablet by mouth daily X 3 DAYS 2 FLUCONAZOLE 85752033805 No Longer Active Rj Moss DO Active MIRTAZAPINE 15 MG ORAL TABS 1/2 tab by mouth at bedtime. MIRTAZAPINE 91207997840 No Longer Active Tesfaye Sherman MD Acti ve BACTRIM DS 800-160 MG TAB 1 tab by mouth twice daily 2 TRIMETHOPRIM-SULFAMETHOXAZOLE 32943655099 No Longer Active Tesfaye Sherman MD Active PRAMIPEXOLE DIHYDROCHLORIDE 0.125 MG ORAL TABS take 1 tablet po qhs for restless leg syndrome. PRAMIPEXOLE DIHYDROCHLORIDE 94814211852 No Longer Active Tesfaye Sherman MD Active MAGNESIUM 400 MG ORAL TABS 1 tab po daily MAGNESI UM 39678993521 Active Chelsea Barba APRN Active SUDAFED 24 HOUR 240 MG ORAL [id number] 1 tab po daily PSEUDOEPHEDRINE HCL 23591165060 Active Chelsea Barba APRN A ctive CETIRIZINE HCL 5 MG TABS Take 1 tablet by mouth daily CETIRIZINE HCL 12059205395 No Longer Active Chelsea Barba APRN Acti ve TRIMETHOPRIM 100 MG TABS 1/2 qd TRIMETHOPRIM 90673195999 No Longer Active Chelsea Barba [employer] Active BACTRIM DS 800-160 MG TAB 1 tab by mouth twice daily 2 TRIMETHOPRIM-SULFAMETHOXAZOLE 11503142849 No Longer Active Tesfaye Sherman MD Active BACTRIM DS 800-160 MG TAB 1 tab by mouth twice daily X 10 DAYS 2 TRIMETHOPRIM-SULFAMETHOXAZOLE 86215045984 No Longer Active Umer Sherman MD Active AMOXICILLIN 500 MG CAPS 1 cap by mouth three times a day AMOXICILLIN 84497899423 No Longer Active Adriana Arredondo Active MECLIZINE HCL 25 MG TAB one tab po qday prn dizziness MECLIZINE HCL 88067091329 Active Tesfaye Sherman MD Active B-12 1000 MCG ORAL LOZG 1 tab po daily CYANOCOBAL STANTON 19684085015 Active Tesfaye Sherman MD Active VITAMIN D3 2000 UNIT TABS 1 daily, for vitamin D deficiency 2014 CHOLECALCIFEROL 34728832239 No Longer Active Tesfaye Sherman MD Active TIZANIDINE HCL 2 MG TABS take 1-2 tablet by mouth at bedtime at 9pm PRN TIZANIDINE HCL 52476554800 Active Tesfaye Owusu Active ZITHROMAX 250 MG TAB 2 po today, then 1 po q days 2-5 AZITHROMYCIN 68801275187 No Longer Active Tesfaye Sherman MD Acti ve BACTRIM DS 800-160 MG TAB 1 tab by mouth twice daily 2 TRIMETHOPRIM-SULFAMETHOXAZOLE 77940888825 No Longer Active Tesfaye Sherman MD Active PRELIEF 340 (65-50) MG (CA-P) ORAL TABS CALCIUM GLYCEROPHOSPHATE 43835077835 Active Tesfaye Sherman MD Active [facility] NIACIN FLUSH FREE 400-100 MG CAPS 1 daily NIACIN-INOSITOL 07120813137 Active Kayla Cooper MD Active DIFLUCAN 150 MG TABS 1 qd FLUCONAZOLE 02037 307221 No Longer Active Kayla Cooper MD Active FLUTICASONE PROPIONATE 50 MCG/ACT SUSP 1 spray each nostril twice daily FLUTICASONE PROPIONATE 92484372953 Active Tesfaye armenta MD Active LOVASTATIN 20 MG TABS Take 1 tablet by mouth daily LOVASTATIN 91328880509 No Longer Active Tesfaye Sherman MD Active MELOXICAM 7.5 MG TABS 1 tablet by mouth daily M ELOXICAM 62526009264 No Longer Active Tesfaye Sherman MD Active GABAPENTIN 300 MG CAPS Take two tablets by mouth every evening GABAPENTIN 90267811061 No Longer Active Edith Burch MD Active OXYCODONE-ACETAMINOPHEN 5-325 MG TABS Take one tablet by mouth every 6 hours as needed. Max 12 tabs/day as needed OXYCODONE-ACETAMINOP HEN 48378652866 Active Tesfaye Sherman MD Active CLONAZEPAM 0.5 MG TABS Take one tablet in the morning and 1.5 table t at 7pm CLONAZEPAM 06047283246 Active Kayla Cooper MD Active BACLOFEN 10 MG TABS Take one tablet by mouth three times a day BACLOFEN 00503115176 Active Kayla Cooper MD Active GABAPENTIN 300 MG CAPS Take two tablets by mouth every evening GABAPENTIN 300 MG CAPS 869597 GABAPENTIN Inactive MELOXICAM 7.5 MG TABS 1 tablet by mouth daily MELOXICAM 7.5 MG TABS 938671 MELOXICAM Inactive LOVASTATIN 20 MG TABS Take 1 tablet by mouth daily 201 02/12/20 LOVASTATIN 20 MG TABS 530867 LOVASTATIN Inactive DIFLUCAN 150 MG TABS 1 qd DIFLUCAN 150 MG T ABS 792574 FLUCONAZOLE Inactive VITAMIN D3 2000 UNIT TABS 1 daily, for vitamin D deficiency 2014 VITAMIN D3 2000 UNIT TABS CHOLECALCIFEROL Inacti ve AMOXICILLIN 500 MG CAPS 1 cap by mouth three times a day AMOXICILLIN 500 MG CAPS 378396 AMOXICILLIN Inactive BACTRIM DS 800-160 MG TAB 1 tab by mouth twice daily X 10 DAYS 2 BACTRIM DS 800-160 MG TAB 19830105 TRIMETHOPRIM-SULFAMETH OXAZOLE Inactive TRIMETHOPRIM 100 MG TABS 1/2 qd TRIMETHOPRI M 100 MG TABS 19830102 TRIMETHOPRIM Inactive CETIRIZINE HCL 5 MG TABS Take 1 tablet by mouth daily CETIRIZINE HCL 5 MG TABS 8662435 CETIRIZINE HCL Inactive PRAMIPEXOLE DIHYDROCHLORIDE 0.125 MG ORAL TABS take 1 tablet po qhs for restless leg syndrome. PRAMIPEXOLE DIHYDROC HLORIDE 0.125 MG ORAL TABS 746473 PRAMIPEXOLE DIHYDROCHLORIDE Inactive MIRTAZAPINE 15 MG ORAL TABS 1/2 tab by mouth at bedtime. MIRTAZAPINE 15 MG ORAL TABS 822975 MIRTAZAPINE Inactive DIFLUCAN 100 MG TAB 1 tablet by mouth daily X 3 DAYS 2 DIFLUCAN 100 MG TAB 737503 FLUCONAZOLE Inactive DIFLUCAN 100 MG TABS 1 tablet by mouth every other day for 2 dos es DIFLUCAN 100 MG TABS 650260 FLUCONAZOLE Inactive CEFTIN 250 MG TAB 1 tablet twice daily x 7 days 11/19 CEFTIN 250 MG TAB 556058 CEFUROXIME AXETIL Inactive CYMBALTA 30 MG CPEP 1 cap by mouth daily with 60mg 201 05/09/11 CYMBALTA 30 MG CPEP 063288 DULOXETINE HCL Inactive CYMBALTA 60 MG CPEP Take 1 tablet by mouth daily 05/13 CYMBALTA 60 MG CPEP 437004 DULOXETINE HCL Inactive BACTRIM DS 800-160 MG TAB 1 tab by mouth twice daily 2 BACTRIM DS 800-160 MG TAB 004908 TRIMETHOPRIM-SULFAMETHOXAZOLE Inac tive ZITHROMAX 250 MG TAB 2 po today, then 1 po q days 2-5 ZITHROMAX 250 MG TAB 9999175 AZITHROMYCIN Inactive BACTRIM DS 800-160 MG TAB [...] by mouth daily DIFLUCAN 100 MG TAB 017164 FLUCONAZOLE Inactive Advance Directives Directive Description Start [...] ... - Chemistry sodium, serum 144 mmol/L 207-380 1599/06/14 carbon dioxide, venous blood 29.4 mmol/L 21.0-32 .0 potassium, serum 4.4 mmol/L 3.5-5.2 chloride, serum 108 mmol/L 98-107 blood glucose 100 mg/dL 65-110 urea nitrogen, blood 9 mg/dL 7-18 creatinine, serum 0.67 mg/dL 0.55-1.30 alanine aminotransferase (SGPT), serum 24 U/L 12-78 aspartate aminotransferase (SGOT), serum 15 U/L 15-37 calcium, serum 9.3 mg/dL 8.5-10.1 bilirubin, serum, total 0.50 mg/dL 0.00-1.00 cholesterol, serum 268 mg/dL 034-784 5375/06/14 triglyceride, serum, fasting 126 mg/dL 30-200 HDL [...] mg/dL Encounters Code Encounter Date Provider Facility CPT-91466 Level 4 Est. Patient 13:24:25 CDT Stephanie MERCADO [facility] CPT-67674 Level 4 Est. Patient 09:14:56 CDT Tesfaye pearson MD [facility] CPT-91584 Level 4 Est. Patient 18:40:25 [employer] Tesfaye pearson MD [facility] CPT-09471 Level 4 Est. Patient 18:13:07 [employer] Tesfaye pearson MD [facility]-09510 Level 3 Est. Patient 10:46:32 CDT Rj cotto DO [facility]-80390 Level 4 Est. Patient 20:19:25 CDT Tesfaye pearson MD [facility]-38584 Level 3 Est. Patient 09:07:31 CDT Tesfaye pearson MD [facility]-24996 Level 4 Est. Patient 13:12:56 CDT Tesfaye pearson MD [facility]-63139 Level 4 Est. Patient 21:24:55 [employer] Tesfaye pearson MD [facility]-79785 Level 3 Est. Patient 13:45:04 [employer] Tesfaye pearson MD [facility] CPT-55870 Level 4 Est. Patient 13:50:45 CDT Tesfaye pearson MD [facility] CPT-42751 Level 3 Est. Patient 10:16:10 CDT Tesfaye pearson MD [facility] CPT-57930 Level 3 Est. Patient 16:36:07 [employer] Kayla jameson MD [facility]-10825 Level 4 Est. Patient 16:00:14 [employer] Tesfaye pearson MD [facility]-87594 Level 4 Est. Patient 11:02:24 [employer] Tesfaye pearson MD [facility]-02367 Level 3 Est. Patient 20:21:43 [employer] Kayla jameson MD [facility]-27256 Level 3 Est. Patient 13:27:28 [employer] Kayla jameson MD [facility]-12015 Level 4 Est. Patient 15:57:17 [employer] Tesfaye pearson MD [facility] CPT-15599 Level 3 New Patient 13:25:47 CDT Tesfaye kidd MD [facility] CPT-53694 Level 3 New Patient 17:22:21 CDT Kayla angel MD [facility] Procedures Code Procedure Name Date Entry Date Standard Desc ription CPT-82212 Bone Density - XRAY USE ONLY 10:05:16 CDT 2 CPT-64850 Prv Med New Pt 40-64 yrs 18:19:25 CDT 2016 CPT-83364 Foot, right, comp min 3V - XRAY USE ONLY 10:38:34 CDT CPT-G0439 Subsequent Annual Wellness Exam 13:55:04 CDT CPT-G0438 Initial Annual Wellness Exam 11:23:17 CD T CPT-J2930 Solu Medrol 125 mg (Methyl Prednisolone Sodium Succinate) 17:29:12 [employer] CPT-58891 Abx/Therapy Injection 17:29:11 [employer] CPT-J2930 Solu Medrol 125 mg (Methyl Prednisolone Sodium Succinate) 12:34:38 [employer] CPT-J3420 Vitamin B12 1000mcg (Cyanocobalamin) 09:12:55 CDT CPT-J3420 Vitamin B12 1000mcg (Cyanocobalamin) 16:28:06 [employer] CPT-39267 Venipuncture Draw Fee 08:39:53 CDT CPT-J3420 Vitamin B12 1000mcg (Cyanocobalamin) 08:46:22 CDT CPT-22089 Abx/Therapy Injection 08:46:22 CDT CPT-J3420 Vitamin B12 1000mcg (Cyanocobalamin) 08:41:26 CDT CPT-81013 Abx/Therapy Injection 08:41:26 CDT CPT-J3420 Vitamin B12 1000mcg (Cyanocobalamin) 08:57:15 CDT CPT-48669 Abx/Therapy Injection 08:57:15 CDT CPT-J3420 Vitamin B12 1000mcg (Cyanocobalamin) 10:59:03 CDT CPT-77056 Abx/Therapy Injection 10:59:03 CDT CPT-J3420 Vitamin B12 1000mcg (Cyanocobalamin) 15:05:39 CDT CPT-04114 Abx/Therapy Injection 15:05:39 CDT CPT-J3420 Vitamin B12 1000mcg (Cyanocobalamin) 13:50:45 CDT CPT-J3420 Vitamin B12 1000mcg (Cyanocobalamin) 08:48:55 CDT CPT-29491 Abx/Therapy Injection 08:48:55 CDT CPT-J3420 Vitamin B12 1000mcg (Cyanocobalamin) 09:14:54 CDT CPT-55341 Abx/Therapy Injection 09:14:54 CDT CPT-J3420 Vitamin B12 1000mcg (Cyanocobalamin) 09:06:06 CDT CPT-24641 Abx/Therapy Injection 09:06:06 CDT CPT-J3420 Vitamin B12 1000mcg (Cyanocobalamin) 09:49:14 CDT CPT-16493 Abx/Therapy Injection 09:49:14 CDT CPT-J3420 Vitamin B12 1000mcg (Cyanocobalamin) 09:10:30 [employer] CPT-23224 Abx/Therapy Injection 09:10:30 [employer] CPT-J3420 Vitamin B12 1000mcg (Cyanocobalamin) 09:11:07 [employer] CPT-30266 Abx/Therapy Injection 09:11:07 [employer] CPT-J3420 Vitamin B12 1000mcg (Cyanocobalamin) 09:57:03 [employer] CPT-59574 Abx/Therapy Injection 09:57:03 [employer] CPT-J3420 Vitamin B12 1000mcg (Cyanocobalamin) 09:23:21 [employer] CPT-25716 Abx/Therapy Injection 09:23:21 [employer] CPT-97087 Urine Dip (Floor Use Only) 20:21:44 [employer] 201 02/12/11 CPT-53588 UA Dip Auto (Floor Use Only) 10:04:39 [employer] 2 CPT-81495 Urine Dip (Floor Use Only) 13:27:28 [employer] 201 02/12/01 CPT-45878 Bladder Scan 13:27:28 [employer] CPT-64656 Abd single AP View 14:30:51 [employer] CPT-OV Office Visit 10:15:43 CDT CPT-39906 Urine Dip (Floor Use Only) 17:22:21 CDT 201 02/09/02 CPT-26433 Bladder Scan 17:22:21 CDT
--- OUTSIDE RECORDS SUMMARY | 2020-05-05 12:18 | XMS REPORT | Clinical Summary ---
Author Author Talon, Jeri Wood Organization [employer] Address Unknown Phone Unavailable Allergies, Adverse Reactions, [...] by mouth daily X 3 DAYS FLUCONAZOLE 33000899364 Active Adriana Arredondo Active BACTRIM DS 800-160 MG TAB 1 tab by mouth twice daily 2 TRIMETHOPRIM-SULFAMETHOXAZOLE 04824997272 Active Tesfaye Sherman MD Active PRAMIPEXOLE DIHYDROCHLORIDE 0.125 MG ORAL TABS take 1 tablet po qhs for restless leg syndrome. PRAMIPEXOLE DIHYDROCHLORIDE 43640516067 No Longer Active Tesfaye Sherman MD Active MAGNESIUM 400 MG ORAL TABS 1 tab po daily [facility] 58038238819 Active Chelsea Barba APRN Active SUDAFED 24 HOUR 240 MG ORAL [id number] 1 tab po daily PSEUDOEPHEDRINE HCL 42984966791 Active Chelsea Barba APRN A ctive CETIRIZINE HCL 5 MG TABS Take 1 tablet by mouth daily CETIRIZINE HCL 68332990567 No Longer Active Chelsea Barba APRN Acti ve TRIMETHOPRIM 100 MG TABS 1/2 qd TRIMETHOPRIM 24807103689 No Longer Active Chelsea Barba APRN Active MIRTAZAPINE 15 MG ORAL TABS 1/2 tab by mouth at bedtime. MIRTAZAPINE 65260077461 Active Tesfaye Sherman MD Active BACTRIM DS 800-160 MG TAB 1 tab by mouth twice daily 2 TRIMETHOPRIM-SULFAMETHOXAZOLE 08083235141 No Longer Active Tesfaye Sherman MD Active BACTRIM DS 800-160 MG TAB 1 tab by mouth twice daily X 10 DAYS 2 TRIMETHOPRIM-SULFAMETHOXAZOLE 29490091004 No Longer Active D patricia Sherman MD Active AMOXICILLIN 500 MG CAPS 1 cap by mouth three times a day AMOXICILLIN 15874972547 No Longer Active Adriana Arredondo Active MECLIZINE HCL 25 MG TAB one tab po qday prn dizziness MECLIZINE HCL 87736925538 Active Tesfaye Sherman MD Active B-12 1000 MCG ORAL LOZG 1 tab po daily CYANOCOBAL STANTON 11175219654 Active Tesfaye Sherman MD Active VITAMIN D3 2000 UNIT TABS 1 daily, for vitamin D deficiency 2014 CHOLECALCIFEROL 29208621195 No Longer Active Tesfaye Sherman MD Active TIZANIDINE HCL 2 MG TABS take 1-2 tablet by mouth ev [place] day at bedtime at 9pm PRN TIZANIDINE HCL 87849159966 Active Tesfaye Owusu Active ZITHROMAX 250 MG TAB 2 po today, then 1 po q days 2-5 AZITHROMYCIN 12397538586 No Longer Active Tesfaye Sherman MD Acti ve BACTRIM DS 800-160 MG TAB 1 tab by mouth twice daily 2 TRIMETHOPRIM-SULFAMETHOXAZOLE 78042719373 No Longer Active Tesfaye Sherman MD Active PRELIEF 340 (65-50) MG (CA-P) ORAL TABS CALCIUM GLYCEROPHOSPHATE 13770061025 Active Tesfaye Sherman MD Active [facility] NIACIN FLUSH FREE 400-100 MG CAPS 1 daily NIACIN-INOSITOL 05691052667 Active Kayla Cooper MD Active DIFLUCAN 150 MG TABS 1 qd FLUCONAZOLE 96142 037986 No Longer Active Kayla Cooper MD Active FLUTICASONE PROPIONATE 50 MCG/ACT SUSP 1 spray each nostril twice daily FLUTICASONE PROPIONATE 82788088074 Active Tesfaye armenta MD Active LOVASTATIN 20 MG TABS Take 1 tablet by mouth daily LOVASTATIN 09179445548 No Longer Active Tesfaye Sherman MD Active MELOXICAM 7.5 MG TABS 1 tablet by mouth daily M ELOXICAM 14117305102 No Longer Active Tesfaye Sherman MD Active GABAPENTIN 300 MG CAPS Take two tablets by mouth every evening GABAPENTIN 98767699119 No Longer Active Edith Burch MD Active OXYCODONE-ACETAMINOPHEN 5-325 MG TABS Take one tablet by mouth every 6 hours as needed. Max 12 tabs/day as needed OXYCODONE-ACETAMINOP HEN 43876677850 Active Tesfaye Sherman MD Active CYMBALTA 60 MG CPEP Take 1 tablet by mouth daily D ULOXETINE HCL 36770048541 Active Kayla Cooper MD Active CLONAZEPAM 0.5 MG TABS Take one tablet in the morning and 1.5 table t at 7pm CLONAZEPAM 33144361024 Active Kayla Cooper MD Active BACLOFEN 10 MG TABS Take one tablet by mouth three times a day BACLOFEN 81527462785 Active Kayla Cooper MD Active GABAPENTIN 300 MG CAPS Take two tablets by mouth every evening GABAPENTIN 300 MG CAPS 656596 GABAPENTIN Inactive MELOXICAM 7.5 MG TABS 1 tablet by mouth daily MELOXICAM 7.5 MG TABS 121192 MELOXICAM Inactive LOVASTATIN 20 MG TABS Take 1 tablet by mouth daily 201 02/12/20 LOVASTATIN 20 MG TABS 424381 LOVASTATIN Inactive DIFLUCAN 150 MG TABS 1 qd DIFLUCAN 150 MG T ABS 995900 FLUCONAZOLE Inactive VITAMIN D3 2000 UNIT TABS 1 daily, for vitamin D deficiency 2014 VITAMIN D3 2000 UNIT TABS CHOLECALCIFEROL Inacti ve AMOXICILLIN 500 MG CAPS 1 cap by mouth three times a day AMOXICILLIN 500 MG CAPS 976267 AMOXICILLIN Inactive BACTRIM DS 800-160 MG TAB 1 tab by mouth twice daily X 10 DAYS 2 BACTRIM DS 800-160 MG TAB 524422 TRIMETHOPRIM-SULFAMETH OXAZOLE Inactive TRIMETHOPRIM 100 MG TABS 1/2 qd TRIMETHOPRI M 100 MG TABS 198245 TRIMETHOPRIM Inactive CETIRIZINE HCL 5 MG TABS Take 1 tablet by mouth daily CETIRIZINE HCL 5 MG TABS 0207639 CETIRIZINE HCL Inactive PRAMIPEXOLE DIHYDROCHLORIDE 0.125 MG ORAL TABS take 1 tablet po qhs for restless leg syndrome. PRAMIPEXOLE DIHYDROC HLORIDE 0.125 MG ORAL TABS 580999 PRAMIPEXOLE DIHYDROCHLORIDE Inactive BACTRIM DS 800-160 MG TAB 1 tab by mouth twice daily 2 BACTRIM DS 800-160 MG TAB 929558 TRIMETHOPRIM-SULFAMETHOXAZOLE Inac tive ZITHROMAX 250 MG TAB 2 po today, then 1 po q days 2-5 ZITHROMAX 250 MG TAB 2718548 AZITHROMYCIN Inactive BACTRIM DS 800-160 MG TAB 1 tab by mouth twice daily 2 BACTRIM DS 800-160 MG TAB 270411 TRIMETHOPRIM-SULFAMETHOXAZOLE Inac tive Advance Directives Directive Description [...] mg/dL Encounters Code Encounter Date Provider Facility CPT-24784 Level 3 Est. Patient 09:07:31 CDT Tesfaye pearson MD [facility] CPT-77106 Level 4 Est. Patient 13:12:56 CDT Tesfaye pearson MD [facility] CPT-65249 Level 4 Est. Patient 21:24:55 [employer] Tesfaye pearson MD [facility] CPT-01747 Level 3 Est. Patient 13:45:04 [employer] Tesfaye pearson MD [facility] CPT-82876 Level 4 Est. Patient 13:50:45 CDT Tesfaye pearson MD [facility] CPT-01598 Level 3 Est. Patient 10:16:10 CDT Tesfaye pearson MD [facility] CPT-31540 Level 3 Est. Patient 16:36:07 [employer] Kayla jameson MD [facility] CPT-89549 Level 4 Est. Patient 16:00:14 [employer] Tesfaye pearson MD [facility] CPT-93386 Level 4 Est. Patient 11:02:24 [employer] Tesfaye pearson MD [facility] CPT-87800 Level 3 Est. Patient 20:21:43 [employer] Kayla jameson MD [facility] CPT-18087 Level 3 Est. Patient 13:27:28 [employer] Kayla jameson MD [facility] CPT-98385 Level 4 Est. Patient 15:57:17 [employer] Tesfaye pearson MD [facility] CPT-67665 Level 3 New Patient 13:25:47 CDT Tesfaye kidd MD [facility] CPT-39176 Level 3 New Patient 17:22:21 CDT Kayla angel MD [facility] Procedures Code Procedure Name Date Entry Date Standard Desc ription CPT-G0438 Initial Annual Wellness Exam 11:23:17 CD T CPT-J2930 Solu Medrol 125 mg (Methyl Prednisolone Sodium Succinate) 17:29:12 [employer] CPT-03195 Abx/Therapy Injection 17:29:11 [employer] CPT-J2930 Solu Medrol 125 mg (Methyl Prednisolone Sodium Succinate) 12:34:38 [employer] CPT-J3420 Vitamin B12 1000mcg (Cyanocobalamin) 09:12:55 CDT CPT-J3420 Vitamin B12 1000mcg (Cyanocobalamin) 16:28:06 [employer] CPT-88266 Venipuncture Draw Fee 08:39:53 CDT CPT-J3420 Vitamin B12 1000mcg (Cyanocobalamin) 08:46:22 CDT CPT-50508 Abx/Therapy Injection 08:46:22 CDT CPT-J3420 Vitamin B12 1000mcg (Cyanocobalamin) 08:41:26 CDT CPT-70503 Abx/Therapy Injection 08:41:26 CDT CPT-J3420 Vitamin B12 1000mcg (Cyanocobalamin) 08:57:15 CDT CPT-49520 Abx/Therapy Injection 08:57:15 CDT CPT-J3420 Vitamin B12 1000mcg (Cyanocobalamin) 10:59:03 CDT CPT-41578 Abx/Therapy Injection 10:59:03 CDT CPT-J3420 Vitamin B12 1000mcg (Cyanocobalamin) 15:05:39 CDT CPT-55841 Abx/Therapy Injection 15:05:39 CDT CPT-J3420 Vitamin B12 1000mcg (Cyanocobalamin) 13:50:45 CDT CPT-J3420 Vitamin B12 1000mcg (Cyanocobalamin) 08:48:55 CDT CPT-01031 Abx/Therapy Injection 08:48:55 CDT CPT-J3420 Vitamin B12 1000mcg (Cyanocobalamin) 09:14:54 CDT CPT-99995 Abx/Therapy Injection 09:14:54 CDT CPT-J3420 Vitamin B12 1000mcg (Cyanocobalamin) 09:06:06 CDT CPT-45470 Abx/Therapy Injection 09:06:06 CDT CPT-J3420 Vitamin B12 1000mcg (Cyanocobalamin) 09:49:14 CDT CPT-20030 Abx/Therapy Injection 09:49:14 CDT CPT-J3420 Vitamin B12 1000mcg (Cyanocobalamin) 09:10:30 [employer] CPT-43091 Abx/Therapy Injection 09:10:30 [employer] CPT-J3420 Vitamin B12 1000mcg (Cyanocobalamin) 09:11:07 [employer] CPT-45725 Abx/Therapy Injection 09:11:07 [employer] CPT-J3420 Vitamin B12 1000mcg (Cyanocobalamin) 09:57:03 [employer] CPT-88659 Abx/Therapy Injection 09:57:03 [employer] CPT-J3420 Vitamin B12 1000mcg (Cyanocobalamin) 09:23:21 [employer] CPT-85531 Abx/Therapy Injection 09:23:21 [employer] CPT-71531 Urine Dip (Floor Use Only) 20:21:44 [employer] 201 02/12/11 CPT-36253 UA Dip Auto (Floor Use Only) 10:04:39 [employer] 2 CPT-52839 Urine Dip (Floor Use Only) 13:27:28 [employer] 201 02/12/01 CPT-36247 Bladder Scan 13:27:28 [employer] CPT-47993 Abd single AP View 14:30:51 [employer] CPT-OV Office Visit 10:15:43 CDT CPT-50364 Urine Dip (Floor Use Only) 17:22:21 CDT 201 02/09/02 CPT-61972 Bladder Scan 17:22:21 CDT
--- OUTSIDE RECORDS SUMMARY | 2020-05-05 12:18 | XMS REPORT | Clinical Summary ---
Author Author Jeri Hanley Organization [employer] Address Unknown Phone Unavailable Allergies, Adverse Reactions, [...] ORAL CAPS 1 tablet daily LACTOBACI LLUS 50223239570 Active Edith Burch MD Active CYMBALTA 60 MG CPEP Take 1 tablet by mouth daily 1 DULOXETINE HCL 19543485485 No Longer Active Edith Burch MD Active CYMBALTA 30 MG CPEP 1 cap by mouth daily with 60mg 201 05/09/11 DULOXETINE HCL 14572743768 No Longer Active Edith Burch MD Activ e FISH OIL 1000 MG CPDR 1 pill by mouth daily for cholesterol 04/18 OMEGA- 3 FATTY ACIDS 66004983514 Active Rosa Jaffe LPN Acti ve RED YEAST RICE 600 MG CAPS 1 pill by mouth daily RED YEAST RICE EXTRACT 28526887879 Active oRsa Jaffe LPN Activ e VENLAFAXINE HCL 37.5 MG TABS 1/4 tab po titrating up to full dose 2 VENLAFAXINE HCL 16529070988 Active Chelsea Barba APRN Activ e DIFLUCAN 100 MG TAB 1 tablet by mouth daily FLU CONAZOLE 92238870217 No Longer Active Tesfaye Sherman MD Active BACTRIM DS 800-160 MG TAB 1 tab by mouth twice daily 2 TRIMETHOPRIM-SULFAMETHOXAZOLE 43869863014 No Longer Active Tesfaye Sherman MD Active BACTRIM DS 800-160 MG TAB 1 tab by mouth twice daily 2 TRIMETHOPRIM-SULFAMETHOXAZOLE 14053612472 No Longer Active Tesfaye Sherman MD Active DIFLUCAN 150 MG TAB 1 tablet by mouth daily FLU CONAZOLE 41146516586 No Longer Active Tesfaye Sherman MD Active BACTRIM DS 800-160 MG TAB 1 tab by mouth twice daily 2 TRIMETHOPRIM-SULFAMETHOXAZOLE 05634049565 No Longer Active Tesfaye Sherman MD Active ROPINIROLE HCL 0.25 MG ORAL TABS 1 TAB PO Q HS ROPINIROLE HCL 34751242960 Active Tesfaye Sherman MD Active CEFTIN 250 MG TAB 1 tablet twice daily x 7 days 11/19 CEFUROXIME AXETIL 66813387450 No Longer Active Tesfaye Sherman MD Acti ve DIFLUCAN 100 MG TABS 1 tablet by mouth every other day for 2 dos es FLUCONAZOLE 92386437201 No Longer Active Tesfaye Sherman MD Active DIFLUCAN 100 MG TAB 1 tablet by mouth daily X 3 DAYS 2 FLUCONAZOLE 77123643563 No Longer Active Rj Moss DO Active MIRTAZAPINE 15 MG ORAL TABS 1/2 tab by mouth at bedtime. MIRTAZAPINE 53658322538 No Longer Active Tesfaye Sherman MD Acti ve BACTRIM DS 800-160 MG TAB 1 tab by mouth twice daily 2 TRIMETHOPRIM-SULFAMETHOXAZOLE 14001874568 No Longer Active Tesfaye Sherman MD Active PRAMIPEXOLE DIHYDROCHLORIDE 0.125 MG ORAL TABS take 1 tablet po qhs for restless leg syndrome. PRAMIPEXOLE DIHYDROCHLORIDE 76736915551 No Longer Active Tesfaye Sherman MD Active MAGNESIUM 400 MG ORAL TABS 1 tab po daily MAGNESI UM 74395992906 Active Chelsea Barba APRN Active SUDAFED 24 HOUR 240 MG ORAL [id number] 1 tab po daily PSEUDOEPHEDRINE HCL 02314354186 Active Chelsea Barba APRN A ctive CETIRIZINE HCL 5 MG TABS Take 1 tablet by mouth daily CETIRIZINE HCL 81537336374 No Longer Active Chelsea Barba APRN Acti ve TRIMETHOPRIM 100 MG TABS 1/2 qd TRIMETHOPRIM 07386562656 No Longer Active Chelsea Barba BOW STAP[employer]ER Active BACTRIM DS 800-160 MG TAB 1 tab by mouth twice daily 2 TRIMETHOPRIM-SULFAMETHOXAZOLE 07664413114 No Longer Active Tesfaye Sherman MD Active BACTRIM DS 800-160 MG TAB 1 tab by mouth twice daily X 10 DAYS 2 TRIMETHOPRIM-SULFAMETHOXAZOLE 11300861170 No Longer Active Umer Sherman MD Active AMOXICILLIN 500 MG CAPS 1 cap by mouth three times a day AMOXICILLIN 49146364765 No Longer Active Adriana Arredondo Active MECLIZINE HCL 25 MG TAB one tab po qday prn dizziness MECLIZINE HCL 93839970328 Active Tesfaye Sherman MD Active B-12 1000 MCG ORAL LOZG 1 tab po daily CYANOCOBAL STANTON 14451723953 Active Tesfaye Sherman MD Active VITAMIN D3 2000 UNIT TABS 1 daily, for vitamin D deficiency 2014 CHOLECALCIFEROL 47440920735 No Longer Active Tesfaye Sherman MD Active TIZANIDINE HCL 2 MG TABS take 1-2 tablet by mouth at bedtime at 9pm PRN TIZANIDINE HCL 95928255608 Active Tesfaye Owusu Active ZITHROMAX 250 MG TAB 2 po today, then 1 po q days 2-5 AZITHROMYCIN 47624120051 No Longer Active Tesfaye Sherman MD Acti ve BACTRIM DS 800-160 MG TAB 1 tab by mouth twice daily 2 TRIMETHOPRIM-SULFAMETHOXAZOLE 42146667067 No Longer Active Tesfaye Sherman MD Active PRELIEF 340 (65-50) MG (CA-P) ORAL TABS CALCIUM GLYCEROPHOSPHATE 02039883037 Active Tesfaye Sherman MD Active [facility] NIACIN FLUSH FREE 400-100 MG CAPS 1 daily NIACIN-INOSITOL 59067327470 Active Kayla Cooper MD Active DIFLUCAN 150 MG TABS 1 qd FLUCONAZOLE 15498 719309 No Longer Active Kayla Cooper MD Active FLUTICASONE PROPIONATE 50 MCG/ACT SUSP 1 spray each nostril twice daily FLUTICASONE PROPIONATE 09039638820 Active Tesfaye armenta MD Active LOVASTATIN 20 MG TABS Take 1 tablet by mouth daily LOVASTATIN 29365223531 No Longer Active Tesfaye Sherman MD Active MELOXICAM 7.5 MG TABS 1 tablet by mouth daily M ELOXICAM 85710828954 No Longer Active Tesfaye Sherman MD Active GABAPENTIN 300 MG CAPS Take two tablets by mouth every evening GABAPENTIN 76387862581 No Longer Active Edith Burch MD Active OXYCODONE-ACETAMINOPHEN 5-325 MG TABS Take one tablet by mouth every 6 hours as needed. Max 12 tabs/day as needed OXYCODONE-ACETAMINOP HEN 02286456578 Active Tesfaye Sherman MD Active CLONAZEPAM 0.5 MG TABS Take one tablet in the morning and 1.5 table t at 7pm CLONAZEPAM 21416445124 Active Kayla Cooper MD Active BACLOFEN 10 MG TABS Take one tablet by mouth three times a day BACLOFEN 94057551164 Active Kayla Cooper MD Active GABAPENTIN 300 MG CAPS Take two tablets by mouth every evening GABAPENTIN 300 MG CAPS 888664 GABAPENTIN Inactive MELOXICAM 7.5 MG TABS 1 tablet by mouth daily MELOXICAM 7.5 MG TABS 102048 MELOXICAM Inactive LOVASTATIN 20 MG TABS Take 1 tablet by mouth daily 201 02/12/20 LOVASTATIN 20 MG TABS 460966 LOVASTATIN Inactive DIFLUCAN 150 MG TABS 1 qd DIFLUCAN 150 MG T ABS 060961 FLUCONAZOLE Inactive VITAMIN D3 2000 UNIT TABS 1 daily, for vitamin D deficiency 2014 VITAMIN D3 2000 UNIT TABS CHOLECALCIFEROL Inacti ve AMOXICILLIN 500 MG CAPS 1 cap by mouth three times a day AMOXICILLIN 500 MG CAPS 068288 AMOXICILLIN Inactive BACTRIM DS 800-160 MG TAB 1 tab by mouth twice daily X 10 DAYS 2 BACTRIM DS 800-160 MG TAB 19830105 TRIMETHOPRIM-SULFAMETH OXAZOLE Inactive TRIMETHOPRIM 100 MG TABS 1/2 qd TRIMETHOPRI M 100 MG TABS 19830102 TRIMETHOPRIM Inactive CETIRIZINE HCL 5 MG TABS Take 1 tablet by mouth daily CETIRIZINE HCL 5 MG TABS 7454927 CETIRIZINE HCL Inactive PRAMIPEXOLE DIHYDROCHLORIDE 0.125 MG ORAL TABS take 1 tablet po qhs for restless leg syndrome. PRAMIPEXOLE DIHYDROC HLORIDE 0.125 MG ORAL TABS 465354 PRAMIPEXOLE DIHYDROCHLORIDE Inactive MIRTAZAPINE 15 MG ORAL TABS 1/2 tab by mouth at bedtime. MIRTAZAPINE 15 MG ORAL TABS 067222 MIRTAZAPINE Inactive DIFLUCAN 100 MG TAB 1 tablet by mouth daily X 3 DAYS 2 DIFLUCAN 100 MG TAB 370525 FLUCONAZOLE Inactive DIFLUCAN 100 MG TABS 1 tablet by mouth every other day for 2 dos es DIFLUCAN 100 MG TABS 907539 FLUCONAZOLE Inactive CEFTIN 250 MG TAB 1 tablet twice daily x 7 days 11/19 CEFTIN 250 MG TAB 973277 CEFUROXIME AXETIL Inactive CYMBALTA 30 MG CPEP 1 cap by mouth daily with 60mg 201 05/09/11 CYMBALTA 30 MG CPEP 607160 DULOXETINE HCL Inactive CYMBALTA 60 MG CPEP Take 1 tablet by mouth daily 05/13 CYMBALTA 60 MG CPEP 853797 DULOXETINE HCL Inactive BACTRIM DS 800-160 MG TAB 1 tab by mouth twice daily 2 BACTRIM DS 800-160 MG TAB 635531 TRIMETHOPRIM-SULFAMETHOXAZOLE Inac tive ZITHROMAX 250 MG TAB 2 po today, then 1 po q days 2-5 ZITHROMAX 250 MG TAB 1513495 AZITHROMYCIN Inactive BACTRIM DS 800-160 MG TAB [...] by mouth daily DIFLUCAN 100 MG TAB 706343 FLUCONAZOLE Inactive Advance Directives Directive Description Start [...] ... - Chemistry sodium, serum 144 mmol/L 308-108 5493/06/14 carbon dioxide, venous blood 29.4 mmol/L 21.0-32 .0 potassium, serum 4.4 mmol/L 3.5-5.2 chloride, serum 108 mmol/L 98-107 blood glucose 100 mg/dL 65-110 urea nitrogen, blood 9 mg/dL 7-18 creatinine, serum 0.67 mg/dL 0.55-1.30 alanine aminotransferase (SGPT), serum 24 U/L 12-78 aspartate aminotransferase (SGOT), serum 15 U/L 15-37 calcium, serum 9.3 mg/dL 8.5-10.1 bilirubin, serum, total 0.50 mg/dL 0.00-1.00 cholesterol, serum 268 mg/dL 575-102 4815/06/14 triglyceride, serum, fasting 126 mg/dL 30-200 HDL [...] mg/dL Encounters Code Encounter Date Provider Facility CPT-67674 Level 4 Est. Patient 13:24:25 CDT Stephanie MERCADO [facility] CPT-57996 Level 4 Est. Patient 09:14:56 CDT Tesfaye pearson MD [facility] CPT-66914 Level 4 Est. Patient 18:40:25 [employer] Tesfaye pearson MD [facility] CPT-43665 Level 4 Est. Patient 18:13:07 [employer] Tesfaye pearson MD [facility]-40768 Level 3 Est. Patient 10:46:32 CDT Rj cotto DO [facility]-79525 Level 4 Est. Patient 20:19:25 CDT Tesfaye pearson MD [facility]-55272 Level 3 Est. Patient 09:07:31 CDT Tesfaye pearson MD [facility]-49807 Level 4 Est. Patient 13:12:56 CDT Tesfaye pearson MD [facility]-82920 Level 4 Est. Patient 21:24:55 [employer] Tesfaye pearosn MD [facility]-26376 Level 3 Est. Patient 13:45:04 [employer] Tesfaye pearson MD [facility] CPT-63475 Level 4 Est. Patient 13:50:45 CDT Tesfaye pearson MD [facility] CPT-29650 Level 3 Est. Patient 10:16:10 CDT Tesfaye pearson MD [facility] CPT-27995 Level 3 Est. Patient 16:36:07 [employer] Kayla jameson MD [facility]-22566 Level 4 Est. Patient 16:00:14 [employer] Tesfaye pearson MD [facility]-45542 Level 4 Est. Patient 11:02:24 [employer] Tesfaye pearson MD [facility]-72679 Level 3 Est. Patient 20:21:43 [employer] Kayla jameson MD [facility]-60881 Level 3 Est. Patient 13:27:28 [employer] Kayla jameson MD [facility]-63453 Level 4 Est. Patient 15:57:17 [employer] Tesfaye pearson MD [facility] CPT-51205 Level 3 New Patient 13:25:47 CDT Tesfaye kidd MD [facility] CPT-11395 Level 3 New Patient 17:22:21 CDT Kayla angel MD [facility] Procedures Code Procedure Name Date Entry Date Standard Desc ription CPT-67129 Bone Density - XRAY USE ONLY 10:05:16 CDT 2 CPT-78875 Prv Med New Pt 40-64 yrs 18:19:25 CDT 2016 CPT-90570 Foot, right, comp min 3V - XRAY USE ONLY 10:38:34 CDT CPT-G0439 Subsequent Annual Wellness Exam 13:55:04 CDT CPT-G0438 Initial Annual Wellness Exam 11:23:17 CD T CPT-J2930 Solu Medrol 125 mg (Methyl Prednisolone Sodium Succinate) 17:29:12 [employer] CPT-54605 Abx/Therapy Injection 17:29:11 [employer] CPT-J2930 Solu Medrol 125 mg (Methyl Prednisolone Sodium Succinate) 12:34:38 [employer] CPT-J3420 Vitamin B12 1000mcg (Cyanocobalamin) 09:12:55 CDT CPT-J3420 Vitamin B12 1000mcg (Cyanocobalamin) 16:28:06 [employer] CPT-88179 Venipuncture Draw Fee 08:39:53 CDT CPT-J3420 Vitamin B12 1000mcg (Cyanocobalamin) 08:46:22 CDT CPT-55076 Abx/Therapy Injection 08:46:22 CDT CPT-J3420 Vitamin B12 1000mcg (Cyanocobalamin) 08:41:26 CDT CPT-48319 Abx/Therapy Injection 08:41:26 CDT CPT-J3420 Vitamin B12 1000mcg (Cyanocobalamin) 08:57:15 CDT CPT-01844 Abx/Therapy Injection 08:57:15 CDT CPT-J3420 Vitamin B12 1000mcg (Cyanocobalamin) 10:59:03 CDT CPT-00469 Abx/Therapy Injection 10:59:03 CDT CPT-J3420 Vitamin B12 1000mcg (Cyanocobalamin) 15:05:39 CDT CPT-67848 Abx/Therapy Injection 15:05:39 CDT CPT-J3420 Vitamin B12 1000mcg (Cyanocobalamin) 13:50:45 CDT CPT-J3420 Vitamin B12 1000mcg (Cyanocobalamin) 08:48:55 CDT CPT-50250 Abx/Therapy Injection 08:48:55 CDT CPT-J3420 Vitamin B12 1000mcg (Cyanocobalamin) 09:14:54 CDT CPT-56345 Abx/Therapy Injection 09:14:54 CDT CPT-J3420 Vitamin B12 1000mcg (Cyanocobalamin) 09:06:06 CDT CPT-18420 Abx/Therapy Injection 09:06:06 CDT CPT-J3420 Vitamin B12 1000mcg (Cyanocobalamin) 09:49:14 CDT CPT-37609 Abx/Therapy Injection 09:49:14 CDT CPT-J3420 Vitamin B12 1000mcg (Cyanocobalamin) 09:10:30 [employer] CPT-36544 Abx/Therapy Injection 09:10:30 [employer] CPT-J3420 Vitamin B12 1000mcg (Cyanocobalamin) 09:11:07 [employer] CPT-71022 Abx/Therapy Injection 09:11:07 [employer] CPT-J3420 Vitamin B12 1000mcg (Cyanocobalamin) 09:57:03 [employer] CPT-06597 Abx/Therapy Injection 09:57:03 [employer] CPT-J3420 Vitamin B12 1000mcg (Cyanocobalamin) 09:23:21 [employer] CPT-93076 Abx/Therapy Injection 09:23:21 [employer] CPT-48527 Urine Dip (Floor Use Only) 20:21:44 [employer] 201 02/12/11 CPT-06947 UA Dip Auto (Floor Use Only) 10:04:39 [employer] 2 CPT-25855 Urine Dip (Floor Use Only) 13:27:28 [employer] 201 02/12/01 CPT-90517 Bladder Scan 13:27:28 [employer] CPT-57424 Abd single AP View 14:30:51 [employer] CPT-OV Office Visit 10:15:43 CDT CPT-76333 Urine Dip (Floor Use Only) 17:22:21 CDT 201 02/09/02 CPT-18957 Bladder Scan 17:22:21 CDT
--- OUTSIDE RECORDS SUMMARY | 2020-05-05 12:18 | XMS REPORT | Clinical Summary ---
Author Author Jeri Hanley Organization [employer] Address Unknown Phone Unavailable Allergies, Adverse Reactions, [...] Active Tesfaye kidd MD XANAX Critical Active Kyala tate MD SAVELLFer Critical Active Kayla tate [...] lying down x 1 hour. ALENDRONATE SODIUM 04237965100 Active Tesfaye Sherman MD Active REPHRESH PRO-B ORAL CAPS 1 tablet daily LACTOBACI LLUS 28127353883 Active Edith Burch MD Active CYMBALTA 60 MG CPEP Take 1 tablet by mouth daily 1 DULOXETINE HCL 06335662329 No Longer Active Edith Burch MD Active CYMBALTA 30 MG CPEP 1 cap by mouth daily with 60mg 201 05/09/11 DULOXETINE HCL 86929528081 No Longer Active Edith Burch MD Activ e FISH OIL 1000 MG CPDR 1 pill by mouth daily for cholesterol 04/18 OMEGA- 3 FATTY ACIDS 69020195279 Active Rosa Jaffe LPN Acteh ve RED YEAST RICE 600 MG CAPS 1 pill by mouth daily RED YEAST RICE EXTRACT 59638330406 Active Rosa Jaffe LPN Activ e VENLAFAXINE HCL 37.5 MG TABS 1/4 tab po titrating up to full dose 2 VENLAFAXINE HCL 82638053827 Active Chelsea Barba APRN Activ e DIFLUCAN 100 MG TAB 1 tablet by mouth daily FLU CONAZOLE 94935309517 No Longer Active Tesfaye Sherman MD Active BACTRIM DS 800-160 MG TAB 1 tab by mouth twice daily 2 TRIMETHOPRIM-SULFAMETHOXAZOLE 61720161464 No Longer Active Tesfaye Sherman MD Active BACTRIM DS 800-160 MG TAB 1 tab by mouth twice daily 2 TRIMETHOPRIM-SULFAMETHOXAZOLE 41676843427 No Longer Active Tesfaye Sherman MD Active DIFLUCAN 150 MG TAB 1 tablet by mouth daily FLU CONAZOLE 59473664027 No Longer Active Tesfaye Sherman MD Active BACTRIM DS 800-160 MG TAB 1 tab by mouth twice daily 2 TRIMETHOPRIM-SULFAMETHOXAZOLE 91658818230 No Longer Active Tesfaye Sherman MD Active ROPINIROLE HCL 0.25 MG ORAL TABS 1 TAB PO Q HS ROPINIROLE HCL 75903233562 Active Tesfaye Sherman MD Active CEFTIN 250 MG TAB 1 tablet twice daily x 7 days 11/19 CEFUROXIME AXETIL 83913732130 No Longer Active Tesfaye Sherman MD Acti ve DIFLUCAN 100 MG TABS 1 tablet by mouth every other day for 2 dos es FLUCONAZOLE 02180221851 No Longer Active Tesfaye Sherman MD Active DIFLUCAN 100 MG TAB 1 tablet by mouth daily X 3 DAYS 2 FLUCONAZOLE 37038670002 No Longer Active Rj Moss DO Active MIRTAZAPINE 15 MG ORAL TABS 1/2 tab by mouth at bedtime. MIRTAZAPINE 43340676044 No Longer Active Tesfaye Sherman MD Acti ve BACTRIM DS 800-160 MG TAB 1 tab by mouth twice daily 2 TRIMETHOPRIM-SULFAMETHOXAZOLE 24613948300 No Longer Active Tesfaye Sherman MD Active PRAMIPEXOLE DIHYDROCHLORIDE 0.125 MG ORAL TABS take 1 tablet po qhs for restless leg syndrome. PRAMIPEXOLE DIHYDROCHLORIDE 09410184150 No Longer Active Tesfaye Sherman MD Active MAGNESIUM 400 MG ORAL TABS 1 tab po daily MAGNESI UM 24890087866 Active Chelsea Barba APRN Active SUDAFED 24 HOUR 240 MG ORAL [id number] 1 tab po daily PSEUDOEPHEDRINE HCL 66189363562 Active Chelsea Barba APRN A ctive CETIRIZINE HCL 5 MG TABS Take 1 tablet by mouth daily CETIRIZINE HCL 78852613114 No Longer Active Chelsea Barba APRN Acti ve TRIMETHOPRIM 100 MG TABS 1/2 qd TRIMETHOPRIM 47494511160 No Longer Active Chelsea Barba APRN Active BACTRIM DS 800-160 MG TAB 1 tab by mouth twice daily 2 TRIMETHOPRIM-SULFAMETHOXAZOLE 89599389802 No Longer Active Tesfaye Sherman MD Active BACTRIM DS 800-160 MG TAB 1 tab by mouth twice daily X 10 DAYS 2 TRIMETHOPRIM-SULFAMETHOXAZOLE 65131383306 No Longer Active Umer Sherman MD Active AMOXICILLIN 500 MG CAPS 1 cap by mouth three times a day AMOXICILLIN 30786108823 No Longer Active Adriana Arredondo Active MECLIZINE HCL 25 MG TAB one tab po qday prn dizziness MECLIZINE HCL 93445337552 Active Tesfaye Sherman MD Active B-12 1000 MCG ORAL LOZG 1 tab po daily CYANOCOBAL STANTON 27937055241 Active Tesfaye Sherman MD Active VITAMIN D3 2000 UNIT TABS 1 daily, for vitamin D deficiency 2014 CHOLECALCIFEROL 43201511504 No Longer Active Tesfaye Sherman MD Active TIZANIDINE HCL 2 MG TABS take 1-2 tablet by mouth at bedtime at 9pm PRN TIZANIDINE HCL 12468893498 Active Tesfaye Owusu Active ZITHROMAX 250 MG TAB 2 po today, then 1 po q days 2-5 AZITHROMYCIN 12358624077 No Longer Active Tesfaye Sherman MD Acti ve BACTRIM DS 800-160 MG TAB 1 tab by mouth twice daily 2 TRIMETHOPRIM-SULFAMETHOXAZOLE 92924876690 No Longer Active Tesfaye Sherman MD Active PRELIEF 340 (65-50) MG (CA-P) ORAL TABS CALCIUM GLYCEROPHOSPHATE 91962076963 Active Tesfaye Sherman MD Active [facility] NIACIN FLUSH FREE 400-100 MG CAPS 1 daily NIACIN-INOSITOL 46225831374 Active Kayla Cooper MD Active DIFLUCAN 150 MG TABS 1 qd FLUCONAZOLE 12694 076484 No Longer Active Kayla Cooper MD Active FLUTICASONE PROPIONATE 50 MCG/ACT SUSP 1 spray each nostril twice daily FLUTICASONE PROPIONATE 11755828601 Active Tesfaye armenta MD Active LOVASTATIN 20 MG TABS Take 1 tablet by mouth daily LOVASTATIN 60447508876 No Longer Active Tesfaye Sherman MD Active MELOXICAM 7.5 MG TABS 1 tablet by mouth daily M ELOXICAM 86567685711 No Longer Active Tesfaye Sherman MD Active GABAPENTIN 300 MG CAPS Take two tablets by mouth every evening GABAPENTIN 14838614334 No Longer Active Edith Burch MD Active OXYCODONE-ACETAMINOPHEN 5-325 MG TABS Take one tablet by mouth every 6 hours as needed. Max 12 tabs/day as needed OXYCODONE-ACETAMINOP HEN 42614639855 Active Tesfaye Sherman MD Active CLONAZEPAM 0.5 MG TABS Take one tablet in the morning and 1.5 table t at 7pm CLONAZEPAM 04939924413 Active Kayla Cooper MD Active BACLOFEN 10 MG TABS Take one tablet by mouth three times a day BACLOFEN 22630560494 Active Kayla Cooper MD Active GABAPENTIN 300 MG CAPS Take two tablets by mouth every evening GABAPENTIN 300 MG CAPS 265721 GABAPENTIN Inactive MELOXICAM 7.5 MG TABS 1 tablet by mouth daily MELOXICAM 7.5 MG TABS 684199 MELOXICAM Inactive LOVASTATIN 20 MG TABS Take 1 tablet by mouth daily 201 02/12/20 LOVASTATIN 20 MG TABS 061427 LOVASTATIN Inactive DIFLUCAN 150 MG TABS 1 qd DIFLUCAN 150 MG T ABS 714921 FLUCONAZOLE Inactive VITAMIN D3 2000 UNIT TABS 1 daily, for vitamin D deficiency 2014 VITAMIN D3 2000 UNIT TABS CHOLECALCIFEROL Inacti ve AMOXICILLIN 500 MG CAPS 1 cap by mouth three times a day AMOXICILLIN 500 MG CAPS 719942 AMOXICILLIN Inactive BACTRIM DS 800-160 MG TAB 1 tab by mouth twice daily X 10 DAYS 2 BACTRIM DS 800-160 MG TAB 19830105 TRIMETHOPRIM-SULFAMETH OXAZOLE Inactive TRIMETHOPRIM 100 MG TABS 1/2 qd TRIMETHOPRI M 100 MG TABS 350968 TRIMETHOPRIM Inactive CETIRIZINE HCL 5 MG TABS Take 1 tablet by mouth daily CETIRIZINE HCL 5 MG TABS 2700544 CETIRIZINE HCL Inactive PRAMIPEXOLE DIHYDROCHLORIDE 0.125 MG ORAL TABS take 1 tablet po qhs for restless leg syndrome. PRAMIPEXOLE DIHYDROC HLORIDE 0.125 MG ORAL TABS 151781 PRAMIPEXOLE DIHYDROCHLORIDE Inactive MIRTAZAPINE 15 MG ORAL TABS 1/2 tab by mouth at bedtime. MIRTAZAPINE 15 MG ORAL TABS 838247 MIRTAZAPINE Inactive DIFLUCAN 100 MG TAB 1 tablet by mouth daily X 3 DAYS 2 DIFLUCAN 100 MG TAB 836797 FLUCONAZOLE Inactive DIFLUCAN 100 MG TABS 1 tablet by mouth every other day for 2 dos es DIFLUCAN 100 MG TABS 304765 FLUCONAZOLE Inactive CEFTIN 250 MG TAB 1 tablet twice daily x 7 days 11/19 CEFTIN 250 MG TAB 733889 CEFUROXIME AXETIL Inactive CYMBALTA 30 MG CPEP 1 cap by mouth daily with 60mg 201 05/09/11 CYMBALTA 30 MG CPEP 907826 DULOXETINE HCL Inactive CYMBALTA 60 MG CPEP Take 1 tablet by mouth daily 05/13 CYMBALTA 60 MG CPEP 937296 DULOXETINE HCL Inactive BACTRIM DS 800-160 MG TAB 1 tab by mouth twice daily 2 BACTRIM DS 800-160 MG TAB 19830105 TRIMETHOPRIM-SULFAMETHOXAZOLE Inac tive ZITHROMAX 250 MG TAB 2 po today, then 1 po q days 2-5 ZITHROMAX 250 MG TAB 9089992 AZITHROMYCIN Inactive BACTRIM DS 800-160 MG TAB [...] by mouth daily DIFLUCAN 150 MG TAB 499256 FLUCONAZOLE Inactive BACTRIM DS 800-160 MG TAB 1 tab by mouth twice daily 2 BACTRIM DS 800-160 MG TAB 19830105 TRIMETHOPRIM-SULFAMETHOXAZOLE Inac tive BACTRIM DS 800-160 MG TAB 1 tab by mouth twice daily 2 BACTRIM DS 800-160 MG TAB 19830105 TRIMETHOPRIM-SULFAMETHOXAZOLE Inac tive DIFLUCAN 100 MG TAB 1 tablet by mouth daily DIFLUCAN 100 MG TAB 395164 FLUCONAZOLE Inactive Advance Directives Directive Description Start [...] ... - Chemistry sodium, serum 144 mmol/L 746-313 1928/06/14 carbon dioxide, venous blood 29.4 mmol/L 21.0-32 .0 potassium, serum 4.4 mmol/L 3.5-5.2 chloride, serum 108 mmol/L 98-107 blood glucose 100 mg/dL 65-110 urea nitrogen, blood 9 mg/dL 7-18 creatinine, serum 0.67 mg/dL 0.55-1.30 alanine aminotransferase (SGPT), serum 24 U/L 12-78 aspartate aminotransferase (SGOT), serum 15 U/L 15-37 calcium, serum 9.3 mg/dL 8.5-10.1 bilirubin, serum, total 0.50 mg/dL 0.00-1.00 cholesterol, serum 268 mg/dL 721-657 5602/06/14 triglyceride, serum, fasting 126 mg/dL 30-200 HDL [...] mg/dL Encounters Code Encounter Date Provider Facility CPT-14171 Level 4 Est. Patient 13:56:54 CDT Tesfaye pearson MD [facility] CPT-61513 Level 4 Est. Patient 13:24:25 CDT Stephanie MERCADO [facility] CPT-54668 Level 4 Est. Patient 09:14:56 CDT Tesfaye pearson MD [facility]-19898 Level 4 Est. Patient 18:40:25 RFID DEVELOPER Tesfaye pearson MD [facility]-72255 Level 4 Est. Patient 18:13:07 RFID DEVELOPER Tesfaye pearson MD [facility]-66001 Level 3 Est. Patient 10:46:32 CDT Rj cotto DO [facility]-51603 Level 4 Est. Patient 20:19:25 CDT Tesfaye pearson MD [facility]-68694 Level 3 Est. Patient 09:07:31 CDT Tesfaye pearson MD [facility]-26687 Level 4 Est. Patient 13:12:56 CDT Tesfaye pearson MD [facility]-46128 Level 4 Est. Patient 21:24:55 RFID DEVELOPER Tesfaye pearson MD [facility]-48468 Level 3 Est. Patient 13:45:04 RFID DEVELOPER Tesfaye pearson MD [facility] CPT-68708 Level 4 Est. Patient 13:50:45 CDT Tesfaye pearson MD [facility] CPT-48415 Level 3 Est. Patient 10:16:10 CDT Tesfaye pearson MD [facility] CPT-11244 Level 3 Est. Patient 16:36:07 RFID DEVELOPER Kayla jameson MD [facility]-46984 Level 4 Est. Patient 16:00:14 RFID DEVELOPER Tesfaye pearson MD [facility]-76669 Level 4 Est. Patient 11:02:24 RFID DEVELOPER Tesfaye pearson MD [facility]-27969 Level 3 Est. Patient 20:21:43 RFID DEVELOPER Kayla jameson MD [facility]-06089 Level 3 Est. Patient 13:27:28 RFID DEVELOPER Kayla jameson MD [facility] CPT-59002 Level 4 Est. Patient 15:57:17 RFID DEVELOPER Tesfaye pearson MD [facility] CPT-63157 Level 3 New Patient 13:25:47 CDT Tesfaye kidd MD [facility] CPT-68714 Level 3 New Patient 17:22:21 CDT Kayla angel MD [facility] Procedures Code Procedure Name Date Entry Date Standard Desc ription CPT-27284 Bone Density - XRAY USE ONLY 11:43:58 CDT 2 CPT-30967 Bone Density - XRAY USE ONLY 10:05:16 CDT 2 CPT-67462 Prv Med New Pt 40-64 yrs 18:19:25 CDT 2016 CPT-38516 Foot, right, comp min 3V - XRAY USE ONLY 10:38:34 CDT CPT-G0439 Subsequent Annual Wellness Exam 13:55:04 CDT CPT-G0438 Initial Annual Wellness Exam 11:23:17 CD T CPT-J2930 Solu Medrol 125 mg (Methyl Prednisolone Sodium Succinate) 17:29:12 RFID DEVELOPER CPT-04410 Abx/Therapy Injection 17:29:11 RFID DEVELOPER CPT-J2930 Solu Medrol 125 mg (Methyl Prednisolone Sodium Succinate) 12:34:38 RFID DEVELOPER CPT-J3420 Vitamin B12 1000mcg (Cyanocobalamin) 09:12:55 CDT CPT-J3420 Vitamin B12 1000mcg (Cyanocobalamin) 16:28:06 RFID DEVELOPER CPT-62749 Venipuncture Draw Fee 08:39:53 CDT CPT-J3420 Vitamin B12 1000mcg (Cyanocobalamin) 08:46:22 CDT CPT-76771 Abx/Therapy Injection 08:46:22 CDT CPT-J3420 Vitamin B12 1000mcg (Cyanocobalamin) 08:41:26 CDT CPT-96249 Abx/Therapy Injection 08:41:26 CDT CPT-J3420 Vitamin B12 1000mcg (Cyanocobalamin) 08:57:15 CDT CPT-57821 Abx/Therapy Injection 08:57:15 CDT CPT-J3420 Vitamin B12 1000mcg (Cyanocobalamin) 10:59:03 CDT CPT-84465 Abx/Therapy Injection 10:59:03 CDT CPT-J3420 Vitamin B12 1000mcg (Cyanocobalamin) 15:05:39 CDT CPT-62378 Abx/Therapy Injection 15:05:39 CDT CPT-J3420 Vitamin B12 1000mcg (Cyanocobalamin) 13:50:45 CDT CPT-J3420 Vitamin B12 1000mcg (Cyanocobalamin) 08:48:55 CDT CPT-42044 Abx/Therapy Injection 08:48:55 CDT CPT-J3420 Vitamin B12 1000mcg (Cyanocobalamin) 09:14:54 CDT CPT-15540 Abx/Therapy Injection 09:14:54 CDT CPT-J3420 Vitamin B12 1000mcg (Cyanocobalamin) 09:06:06 CDT CPT-02369 Abx/Therapy Injection 09:06:06 CDT CPT-J3420 Vitamin B12 1000mcg (Cyanocobalamin) 09:49:14 CDT CPT-04336 Abx/Therapy Injection 09:49:14 CDT CPT-J3420 Vitamin B12 1000mcg (Cyanocobalamin) 09:10:30 RFID DEVELOPER CPT-67136 Abx/Therapy Injection 09:10:30 RFID DEVELOPER CPT-J3420 Vitamin B12 1000mcg (Cyanocobalamin) 09:11:07 RFID DEVELOPER CPT-27793 Abx/Therapy Injection 09:11:07 RFID DEVELOPER CPT-J3420 Vitamin B12 1000mcg (Cyanocobalamin) 09:57:03 RFID DEVELOPER CPT-39913 Abx/Therapy Injection 09:57:03 RFID DEVELOPER CPT-J3420 Vitamin B12 1000mcg (Cyanocobalamin) 09:23:21 RFID DEVELOPER CPT-68079 Abx/Therapy Injection 09:23:21 RFID DEVELOPER CPT-69844 Urine Dip (Floor Use Only) 20:21:44 RFID DEVELOPER 201 02/12/11 CPT-35599 UA Dip Auto (Floor Use Only) 10:04:39 RFID DEVELOPER 2 CPT-30288 Urine Dip (Floor Use Only) 13:27:28 RFID DEVELOPER 201 02/12/01 CPT-84128 Bladder Scan 13:27:28 RFID DEVELOPER CPT-02739 Abd single AP View 14:30:51 RFID DEVELOPER CPT-OV Office Visit 10:15:43 CDT CPT-16985 Urine Dip (Floor Use Only) 17:22:21 CDT 201 02/09/02 CPT-03650 Bladder Scan 17:22:21 CDT
--- OUTSIDE RECORDS SUMMARY | 2020-05-05 12:19 | XMS REPORT | Clinical Summary ---
Author Author Talon, Jeri Wood Organization [facility] Address Unknown Phone Unavailable Allergies, Adverse Reactions, [...] MD Dysuria Yeast infection 112.9 Active Tesfaye wOusu Candidiasis of unspecified site Depression 311 Active [...] for cholesterol 04/18 OMEGA- 3 FATTY ACIDS 04747475035 Active Rosa Jaffe LPN Acti ve RED YEAST RICE 600 MG CAPS 1 pill by mouth daily RED YEAST RICE EXTRACT 75780784133 Active Rosa Jaffe LPN Activ e VENLAFAXINE HCL 37.5 MG TABS 1/4 tab po titrating up to full dose 2 VENLAFAXINE HCL 65801344912 Active Chelsea Barba APRN Activ e DIFLUCAN 100 MG TAB 1 tablet by mouth daily FLU CONAZOLE 73041306432 No Longer Active Tesfaye Sherman MD Active BACTRIM DS 800-160 MG TAB 1 tab by mouth twice daily 2 TRIMETHOPRIM-SULFAMETHOXAZOLE 30114538292 No Longer Active Tesfaye Sherman MD Active BACTRIM DS 800-160 MG TAB 1 tab by mouth twice daily 2 TRIMETHOPRIM-SULFAMETHOXAZOLE 69829111329 No Longer Active Tesfaye Sherman MD Active DIFLUCAN 150 MG TAB 1 tablet by mouth daily FLU CONAZOLE 55918751384 No Longer Active Tesfaye Sherman MD Active BACTRIM DS 800-160 MG TAB 1 tab by mouth twice daily 2 TRIMETHOPRIM-SULFAMETHOXAZOLE 53675120752 No Longer Active Tesfaye Sherman MD Active ROPINIROLE HCL 0.25 MG ORAL TABS 1 TAB PO Q HS ROPINIROLE HCL 29496333770 Active Tesfaye Sherman MD Active CYMBALTA 30 MG CPEP 1 cap by mouth daily with 60mg DULOXETINE HCL 90391977686 Active Tesfaye Sherman MD Active CEFTIN 250 MG TAB 1 tablet twice daily x 7 days 11/19 CEFUROXIME AXETIL 35573829086 No Longer Active Tesfaye Sherman MD Acti ve DIFLUCAN 100 MG TABS 1 tablet by mouth every other day for 2 dos es FLUCONAZOLE 17253749580 No Longer Active Tesfaye Sherman MD Active DIFLUCAN 100 MG TAB 1 tablet by mouth daily X 3 DAYS 2 FLUCONAZOLE 85272501351 No Longer Active Rj Moss DO Active MIRTAZAPINE 15 MG ORAL TABS 1/2 tab by mouth at bedtime. MIRTAZAPINE 63535169928 No Longer Active Tesfaye Sherman MD Acti ve BACTRIM DS 800-160 MG TAB 1 tab by mouth twice daily 2 TRIMETHOPRIM-SULFAMETHOXAZOLE 40520912619 No Longer Active Tesfaye Sherman MD Active PRAMIPEXOLE DIHYDROCHLORIDE 0.125 MG ORAL TABS take 1 tablet po qhs for restless leg syndrome. PRAMIPEXOLE DIHYDROCHLORIDE 41518313280 No Longer Active Tesfaye Sherman MD Active MAGNESIUM 400 MG ORAL TABS 1 tab po daily MAGNESI UM 12210894395 Active Chelsea Barba APRN Active SUDAFED 24 HOUR 240 MG ORAL CH00O-PNV 1 tab po daily PSEUDOEPHEDRINE HCL 71336121114 Active Chelsea Barba APRN A ctive CETIRIZINE HCL 5 MG TABS Take 1 tablet by mouth daily CETIRIZINE HCL 74971917958 No Longer Active Chelsea Barba APRN Acti ve TRIMETHOPRIM 100 MG TABS 1/2 qd TRIMETHOPRIM 72054418138 No Longer Active Chelsea Barba APRN Active BACTRIM DS 800-160 MG TAB 1 tab by mouth twice daily 2 TRIMETHOPRIM-SULFAMETHOXAZOLE 88754222605 No Longer Active Tesfaye Sherman MD Active BACTRIM DS 800-160 MG TAB 1 tab by mouth twice daily X 10 DAYS 2 TRIMETHOPRIM-SULFAMETHOXAZOLE 69349515472 No Longer Active Umer Sherman MD Active AMOXICILLIN 500 MG CAPS 1 cap by mouth three times a day AMOXICILLIN 41918493041 No Longer Active Adriana Arnulfo Active MECLIZINE HCL 25 MG TAB one tab po qday prn dizziness MECLIZINE HCL 37543914379 Active Tesfaye Sherman MD Active B-12 1000 MCG ORAL LOZG 1 tab po daily CYANOCOBAL STANTON 93063003242 Active Tesfaye Sherman MD Active VITAMIN D3 2000 UNIT TABS 1 daily, for vitamin D deficiency 2014 CHOLECALCIFEROL 42461419804 No Longer Active Tesfaye Sherman MD Active TIZANIDINE HCL 2 MG TABS take 1-2 tablet by mouth ev day at bedtime at 9pm PRN TIZANIDINE HCL 74565977403 Active Tesfaye Owusu Active ZITHROMAX 250 MG TAB 2 po today, then 1 po q days 2-5 AZITHROMYCIN 67421526296 No Longer Active Tesfaye Sherman MD Acti ve BACTRIM DS 800-160 MG TAB 1 tab by mouth twice daily 2 TRIMETHOPRIM-SULFAMETHOXAZOLE 30949196727 No Longer Active Tesfaye Sherman MD Active PRELIEF 340 (65-50) MG (CA-P) ORAL TABS CALCIUM GLYCEROPHOSPHATE 20234321249 Active Tesfaye Sherman MD Active [facility] NIACIN FLUSH FREE 400-100 MG CAPS 1 daily NIACIN-INOSITOL 59424591524 Active Kayla Cooper MD Active DIFLUCAN 150 MG TABS 1 qd FLUCONAZOLE 31502 932467 No Longer Active Kayla Cooper MD Active FLUTICASONE PROPIONATE 50 MCG/ACT SUSP 1 spray each nostril twice daily FLUTICASONE PROPIONATE 26809527388 Active Tesfaye armenta MD Active LOVASTATIN 20 MG TABS Take 1 tablet by mouth daily LOVASTATIN 82298378505 No Longer Active Tesfaye Sherman MD Active MELOXICAM 7.5 MG TABS 1 tablet by mouth daily M ELOXICAM 03817426060 No Longer Active Tesfaye Sherman MD Active GABAPENTIN 300 MG CAPS Take two tablets by mouth every evening GABAPENTIN 98383169623 No Longer Active Edith Burch MD Active OXYCODONE-ACETAMINOPHEN 5-325 MG TABS Take one tablet by mouth every 6 hours as needed. Max 12 tabs/day as needed OXYCODONE-ACETAMINOP HEN 55763700433 Active Tesfaye Sherman MD Active CYMBALTA 60 MG CPEP Take 1 tablet by mouth daily D ULOXETINE HCL 60846236235 Active Kayla Cooper MD Active CLONAZEPAM 0.5 MG TABS Take one tablet in the morning and 1.5 table t at 7pm CLONAZEPAM 73412339044 Active Kayla Cooper MD Active BACLOFEN 10 MG TABS Take one tablet by mouth three times a day BACLOFEN 48429457626 Active Kayla Cooper MD Active GABAPENTIN 300 MG CAPS Take two tablets by mouth every evening GABAPENTIN 300 MG CAPS 696102 GABAPENTIN Inactive MELOXICAM 7.5 MG TABS 1 tablet by mouth daily MELOXICAM 7.5 MG TABS 012653 MELOXICAM Inactive LOVASTATIN 20 MG TABS Take 1 tablet by mouth daily 201 02/12/20 LOVASTATIN 20 MG TABS 128650 LOVASTATIN Inactive DIFLUCAN 150 MG TABS 1 qd DIFLUCAN 150 MG T ABS 678478 FLUCONAZOLE Inactive VITAMIN D3 2000 UNIT TABS 1 daily, for vitamin D deficiency 2014 VITAMIN D3 2000 UNIT TABS CHOLECALCIFEROL Inacti ve AMOXICILLIN 500 MG CAPS 1 cap by mouth three times a day AMOXICILLIN 500 MG CAPS 571260 AMOXICILLIN Inactive BACTRIM DS 800-160 MG TAB 1 tab by mouth twice daily X 10 DAYS 2 BACTRIM DS 800-160 MG TAB 19830105 TRIMETHOPRIM-SULFAMETH OXAZOLE Inactive TRIMETHOPRIM 100 MG TABS 1/2 qd TRIMETHOPRI M 100 MG TABS 19830102 TRIMETHOPRIM Inactive CETIRIZINE HCL 5 MG TABS Take 1 tablet by mouth daily CETIRIZINE HCL 5 MG TABS 1787553 CETIRIZINE HCL Inactive PRAMIPEXOLE DIHYDROCHLORIDE 0.125 MG ORAL TABS take 1 tablet po qhs for restless leg syndrome. PRAMIPEXOLE DIHYDROC HLORIDE 0.125 MG ORAL TABS 676884 PRAMIPEXOLE DIHYDROCHLORIDE Inactive MIRTAZAPINE 15 MG ORAL TABS 1/2 tab by mouth at bedtime. MIRTAZAPINE 15 MG ORAL TABS 212621 MIRTAZAPINE Inactive DIFLUCAN 100 MG TAB 1 tablet by mouth daily X 3 DAYS 2 DIFLUCAN 100 MG TAB 462612 FLUCONAZOLE Inactive DIFLUCAN 100 MG TABS 1 tablet by mouth every other day for 2 dos es DIFLUCAN 100 MG TABS 186484 FLUCONAZOLE Inactive CEFTIN 250 MG TAB 1 tablet twice daily x 7 days 11/19 CEFTIN 250 MG TAB 912009 CEFUROXIME AXETIL Inactive BACTRIM DS 800-160 MG TAB 1 tab by mouth twice daily 2 BACTRIM DS 800-160 MG TAB 19830105 TRIMETHOPRIM-SULFAMETHOXAZOLE Inac tive ZITHROMAX 250 MG TAB 2 po today, then 1 po q days 2-5 ZITHROMAX 250 MG TAB 7037754 AZITHROMYCIN Inactive BACTRIM DS 800-160 MG TAB [...] ... - Chemistry sodium, serum 144 mmol/L 223-661 1234/06/14 carbon dioxide, venous blood 29.4 mmol/L 21.0-32 .0 potassium, serum 4.4 mmol/L 3.5-5.2 chloride, serum 108 mmol/L 98-107 blood glucose 100 mg/dL 65-110 urea nitrogen, blood 9 mg/dL 7-18 creatinine, serum 0.67 mg/dL 0.55-1.30 alanine aminotransferase (SGPT), serum 24 U/L 12-78 aspartate aminotransferase (SGOT), serum 15 U/L 15-37 calcium, serum 9.3 mg/dL 8.5-10.1 bilirubin, serum, total 0.50 mg/dL 0.00-1.00 cholesterol, serum 268 mg/dL 898-724 0414/06/14 triglyceride, serum, fasting 126 mg/dL 30-200 HDL [...] urine, by test strip Negative Negati ve urine color Light yellow Colorless;Lightyellow; Straw;Yellow appearance, urine Clear Clear specific gravity, urine 1.005 1.000-1.030 pH, urine, semiquantitative 6.0 5.0-8.5 urobilinogen, urine, semiquantitative (dipstick) 0.2 Normal leukocyte esterase, urine, by dipstick Trace Negative nitrite, urine, semiquantitative Negative Neg ative bilirubin, urine Negative Negative Lab Report: UADIP [...] mg/dL Encounters Code Encounter Date Provider Facility CPT-14535 Level 4 Est. Patient 09:14:56 CDT Tesfaye pearson MD [facility] CPT-87586 Level 4 Est. Patient 18:40:25 [employer] Tesfaye pearson MD [facility] CPT-36194 Level 4 Est. Patient 18:13:07 [employer] Tesfaye pearson MD [facility] CPT-38375 Level 3 Est. Patient 10:46:32 CDT Rj cotto DO [facility] CPT-66806 Level 4 Est. Patient 20:19:25 CDT Tesfaye pearson MD [facility] CPT-64767 Level 3 Est. Patient 09:07:31 CDT Tesfaye pearson MD [facility] CPT-04417 Level 4 Est. Patient 13:12:56 CDT Tesfaye pearson MD [facility] CPT-76053 Level 4 Est. Patient 21:24:55 [employer] Tesfaye pearson MD [facility] CPT-70486 Level 3 Est. Patient 13:45:04 [employer] Tesfaye pearson MD [facility] CPT-05092 Level 4 Est. Patient 13:50:45 CDT Tesfaye pearson MD [facility] CPT-73003 Level 3 Est. Patient 10:16:10 CDT Tesfaye pearson MD [facility] CPT-03236 Level 3 Est. Patient 16:36:07 [employer] Kayla jameson MD [facility] CPT-27689 Level 4 Est. Patient 16:00:14 [employer] Tesfaye pearson MD [facility] CPT-14573 Level 4 Est. Patient 11:02:24 [employer] Tesfaye pearson MD [facility] CPT-76845 Level 3 Est. Patient 20:21:43 [employer] Kayla jameson MD [facility] CPT-36168 Level 3 Est. Patient 13:27:28 [employer] Kayla jameson MD [facility] CPT-10113 Level 4 Est. Patient 15:57:17 [employer] Tesfaye pearson MD [facility] CPT-11918 Level 3 New Patient 13:25:47 CDT Tesfaye kidd MD [facility] CPT-96754 Level 3 New Patient 17:22:21 CDT Kayla angel MD [facility] Procedures Code Procedure Name Date Entry Date Standard Desc ription CPT-37967 Foot, right, comp min 3V - XRAY USE ONLY 10:38:34 CDT CPT-G0439 MC Subsequent Annual Wellness Exam 13:55:04 CDT CPT-G0438 Initial Annual Wellness Exam 11:23:17 CD T CPT-J2930 Solu Medrol 125 mg (Methyl Prednisolone Sodium Succinate) 17:29:12 [employer] CPT-28003 Abx/Therapy Injection 17:29:11 [employer] CPT-J2930 Solu Medrol 125 mg (Methyl Prednisolone Sodium Succinate) 12:34:38 [employer] CPT-J3420 Vitamin B12 1000mcg (Cyanocobalamin) 09:12:55 CDT CPT-J3420 Vitamin B12 1000mcg (Cyanocobalamin) 16:28:06 [employer] CPT-32450 Venipuncture Draw Fee 08:39:53 CDT CPT-J3420 Vitamin B12 1000mcg (Cyanocobalamin) 08:46:22 CDT CPT-04306 Abx/Therapy Injection 08:46:22 CDT CPT-J3420 Vitamin B12 1000mcg (Cyanocobalamin) 08:41:26 CDT CPT-37902 Abx/Therapy Injection 08:41:26 CDT CPT-J3420 Vitamin B12 1000mcg (Cyanocobalamin) 08:57:15 CDT CPT-57829 Abx/Therapy Injection 08:57:15 CDT CPT-J3420 Vitamin B12 1000mcg (Cyanocobalamin) 10:59:03 CDT CPT-34906 Abx/Therapy Injection 10:59:03 CDT CPT-J3420 Vitamin B12 1000mcg (Cyanocobalamin) 15:05:39 CDT CPT-00806 Abx/Therapy Injection 15:05:39 CDT CPT-J3420 Vitamin B12 1000mcg (Cyanocobalamin) 13:50:45 CDT CPT-J3420 Vitamin B12 1000mcg (Cyanocobalamin) 08:48:55 CDT CPT-76920 Abx/Therapy Injection 08:48:55 CDT CPT-J3420 Vitamin B12 1000mcg (Cyanocobalamin) 09:14:54 CDT CPT-96048 Abx/Therapy Injection 09:14:54 CDT CPT-J3420 Vitamin B12 1000mcg (Cyanocobalamin) 09:06:06 CDT CPT-87661 Abx/Therapy Injection 09:06:06 CDT CPT-J3420 Vitamin B12 1000mcg (Cyanocobalamin) 09:49:14 CDT CPT-14591 Abx/Therapy Injection 09:49:14 CDT CPT-J3420 Vitamin B12 1000mcg (Cyanocobalamin) 09:10:30 [employer] CPT-58564 Abx/Therapy Injection 09:10:30 [employer] CPT-J3420 Vitamin B12 1000mcg (Cyanocobalamin) 09:11:07 [employer] CPT-43518 Abx/Therapy Injection 09:11:07 [employer] CPT-J3420 Vitamin B12 1000mcg (Cyanocobalamin) 09:57:03 [employer] CPT-66276 Abx/Therapy Injection 09:57:03 [employer] CPT-J3420 Vitamin B12 1000mcg (Cyanocobalamin) 09:23:21 [employer] CPT-86338 Abx/Therapy Injection 09:23:21 [employer] CPT-24254 Urine Dip (Floor Use Only) 20:21:44 [employer] 201 02/12/11 CPT-23892 UA Dip Auto (Floor Use Only) 10:04:39 [employer] 2 CPT-12215 Urine Dip (Floor Use Only) 13:27:28 [employer] 201 02/12/01 CPT-25649 Bladder Scan 13:27:28 [employer] CPT-40682 Abd single AP View 14:30:51 [employer] CPT-OV Office Visit 10:15:43 CDT CPT-81442 Urine Dip (Floor Use Only) 17:22:21 CDT 201 02/09/02 CPT-68170 Bladder Scan 17:22:21 CDT
--- OUTSIDE RECORDS SUMMARY | 2020-05-05 12:19 | XMS REPORT | Clinical Summary ---
Author Author Jeri Hanley Organization [employer] Address Unknown Phone Unavailable Allergies, Adverse Reactions, [...] for cholesterol 04/18 OMEGA- 3 FATTY ACIDS 42315103800 Active Rosa Jaffe LPN Acti ve RED YEAST RICE 600 MG CAPS 1 pill by mouth daily RED YEAST RICE EXTRACT 89331528414 Active Rosa Jaffe LPN Activ e VENLAFAXINE HCL 37.5 MG TABS 1/4 tab po titrating up to full dose 2 VENLAFAXINE HCL 94631946796 Active Chelsea Barba APRN Activ e DIFLUCAN 100 MG TAB 1 tablet by mouth daily FLU CONAZOLE 80426409595 No Longer Active Tesfaye Sherman MD Active BACTRIM DS 800-160 MG TAB 1 tab by mouth twice daily 2 TRIMETHOPRIM-SULFAMETHOXAZOLE 64119998990 No Longer Active Tesfaye Sherman MD Active BACTRIM DS 800-160 MG TAB 1 tab by mouth twice daily 2 TRIMETHOPRIM-SULFAMETHOXAZOLE 31348511590 No Longer Active Tesfaye Sherman MD Active DIFLUCAN 150 MG TAB 1 tablet by mouth daily FLU CONAZOLE 00441332996 No Longer Active Tesfaye Sherman MD Active BACTRIM DS 800-160 MG TAB 1 tab by mouth twice daily 2 TRIMETHOPRIM-SULFAMETHOXAZOLE 96001590780 No Longer Active Tesfaye Sherman MD Active ROPINIROLE HCL 0.25 MG ORAL TABS 1 TAB PO Q HS ROPINIROLE HCL 46429330429 Active Tesfaye Sherman MD Active CYMBALTA 30 MG CPEP 1 cap by mouth daily with 60mg DULOXETINE HCL 38044560432 Active Tesfaye Sherman MD Active CEFTIN 250 MG TAB 1 tablet twice daily x 7 days 11/19 CEFUROXIME AXETIL 48254360229 No Longer Active Tesfaye Sherman MD Acti ve DIFLUCAN 100 MG TABS 1 tablet by mouth every other day for 2 dos es FLUCONAZOLE 01830140207 No Longer Active Tesfaye Sherman MD Active DIFLUCAN 100 MG TAB 1 tablet by mouth daily X 3 DAYS 2 FLUCONAZOLE 07796306615 No Longer Active Rj Moss DO Active MIRTAZAPINE 15 MG ORAL TABS 1/2 tab by mouth at bedtime. MIRTAZAPINE 70102939309 No Longer Active Tesfaye Sherman MD Acti ve BACTRIM DS 800-160 MG TAB 1 tab by mouth twice daily 2 TRIMETHOPRIM-SULFAMETHOXAZOLE 47740437684 No Longer Active Tesfaye Sherman MD Active PRAMIPEXOLE DIHYDROCHLORIDE 0.125 MG ORAL TABS take 1 tablet po qhs for restless leg syndrome. PRAMIPEXOLE DIHYDROCHLORIDE 01185739712 No Longer Active Tesfaye Sherman MD Active MAGNESIUM 400 MG ORAL TABS 1 tab po daily MAGNESI UM 27407871513 Active Chelsea Barba APRN Active SUDAFED 24 HOUR 240 MG ORAL [id number] 1 tab po daily PSEUDOEPHEDRINE HCL 08287100494 Active Chelsea Barba APRN A ctive CETIRIZINE HCL 5 MG TABS Take 1 tablet by mouth daily CETIRIZINE HCL 76047177616 No Longer Active Chelsea Barba APRN Acti ve TRIMETHOPRIM 100 MG TABS 1/2 qd TRIMETHOPRIM 18366856040 No Longer Active Chelsea Barba APRN Active BACTRIM DS 800-160 MG TAB 1 tab by mouth twice daily 2 TRIMETHOPRIM-SULFAMETHOXAZOLE 23704367556 No Longer Active Tesfaye Sherman MD Active BACTRIM DS 800-160 MG TAB 1 tab by mouth twice daily X 10 DAYS 2 TRIMETHOPRIM-SULFAMETHOXAZOLE 75704424571 No Longer Active Umer Sherman MD Active AMOXICILLIN 500 MG CAPS 1 cap by mouth three times a day AMOXICILLIN 14185242571 No Longer Active Adriana Arnulfo Active MECLIZINE HCL 25 MG TAB one tab po qday prn dizziness MECLIZINE HCL 86997714336 Active Tesfaye Sherman MD Active B-12 1000 MCG ORAL LOZG 1 tab po daily CYANOCOBAL STANTON 54584618669 Active Tesfaye Sherman MD Active VITAMIN D3 2000 UNIT TABS 1 daily, for vitamin D deficiency 2014 CHOLECALCIFEROL 12394217091 No Longer Active Tesfaye Sherman MD Active TIZANIDINE HCL 2 MG TABS take 1-2 tablet by mouth ev day at bedtime at 9pm PRN TIZANIDINE HCL 52248516810 Active Tesfaye Owusu Active ZITHROMAX 250 MG TAB 2 po today, then 1 po q days 2-5 AZITHROMYCIN 85120032816 No Longer Active Tesfaye Sherman MD Acti ve BACTRIM DS 800-160 MG TAB 1 tab by mouth twice daily 2 TRIMETHOPRIM-SULFAMETHOXAZOLE 12305499632 No Longer Active Tesfaye Sherman MD Active PRELIEF 340 (65-50) MG (CA-P) ORAL TABS CALCIUM GLYCEROPHOSPHATE 14078731907 Active Tesfaye Sherman MD Active [facility] NIACIN FLUSH FREE 400-100 MG CAPS 1 daily NIACIN-INOSITOL 76000874082 Active Kayla Cooper MD Active DIFLUCAN 150 MG TABS 1 qd FLUCONAZOLE 04494 146766 No Longer Active Kayla Cooper MD Active FLUTICASONE PROPIONATE 50 MCG/ACT SUSP 1 spray each nostril twice daily FLUTICASONE PROPIONATE 75999529986 Active Tesfaye armenta MD Active LOVASTATIN 20 MG TABS Take 1 tablet by mouth daily LOVASTATIN 67476776773 No Longer Active Tesfaye Sherman MD Active MELOXICAM 7.5 MG TABS 1 tablet by mouth daily M ELOXICAM 58172033590 No Longer Active Tesfaye Sherman MD Active GABAPENTIN 300 MG CAPS Take two tablets by mouth every evening GABAPENTIN 67237089684 No Longer Active Edith Burch MD Active OXYCODONE-ACETAMINOPHEN 5-325 MG TABS Take one tablet by mouth every 6 hours as needed. Max 12 tabs/day as needed OXYCODONE-ACETAMINOP HEN 43856440248 Active Tesfaye Sherman MD Active CYMBALTA 60 MG CPEP Take 1 tablet by mouth daily D ULOXETINE HCL 34017071773 Active Kayla Cooper MD Active CLONAZEPAM 0.5 MG TABS Take one tablet in the morning and 1.5 table t at 7pm CLONAZEPAM 57814480014 Active Kayla Cooper MD Active BACLOFEN 10 MG TABS Take one tablet by mouth three times a day BACLOFEN 48469348324 Active Kayla Cooper MD Active GABAPENTIN 300 MG CAPS Take two tablets by mouth every evening GABAPENTIN 300 MG CAPS 819408 GABAPENTIN Inactive MELOXICAM 7.5 MG TABS 1 tablet by mouth daily MELOXICAM 7.5 MG TABS 526148 MELOXICAM Inactive LOVASTATIN 20 MG TABS Take 1 tablet by mouth daily 201 02/12/20 LOVASTATIN 20 MG TABS 886380 LOVASTATIN Inactive DIFLUCAN 150 MG TABS 1 qd DIFLUCAN 150 MG T ABS 050567 FLUCONAZOLE Inactive VITAMIN D3 2000 UNIT TABS 1 daily, for vitamin D deficiency 2014 VITAMIN D3 2000 UNIT TABS CHOLECALCIFEROL Inacti ve AMOXICILLIN 500 MG CAPS 1 cap by mouth three times a day AMOXICILLIN 500 MG CAPS 338720 AMOXICILLIN Inactive BACTRIM DS 800-160 MG TAB 1 tab by mouth twice daily X 10 DAYS 2 BACTRIM DS 800-160 MG TAB 19830105 TRIMETHOPRIM-SULFAMETH OXAZOLE Inactive TRIMETHOPRIM 100 MG TABS 1/2 qd TRIMETHOPRI M 100 MG TABS 19830102 TRIMETHOPRIM Inactive CETIRIZINE HCL 5 MG TABS Take 1 tablet by mouth daily CETIRIZINE HCL 5 MG TABS 3607479 CETIRIZINE HCL Inactive PRAMIPEXOLE DIHYDROCHLORIDE 0.125 MG ORAL TABS take 1 tablet po qhs for restless leg syndrome. PRAMIPEXOLE DIHYDROC HLORIDE 0.125 MG ORAL TABS 823276 PRAMIPEXOLE DIHYDROCHLORIDE Inactive MIRTAZAPINE 15 MG ORAL TABS 1/2 tab by mouth at bedtime. MIRTAZAPINE 15 MG ORAL TABS 281320 MIRTAZAPINE Inactive DIFLUCAN 100 MG TAB 1 tablet by mouth daily X 3 DAYS 2 DIFLUCAN 100 MG TAB 451158 FLUCONAZOLE Inactive DIFLUCAN 100 MG TABS 1 tablet by mouth every other day for 2 dos es DIFLUCAN 100 MG TABS 396594 FLUCONAZOLE Inactive CEFTIN 250 MG TAB 1 tablet twice daily x 7 days 11/19 CEFTIN 250 MG TAB 756353 CEFUROXIME AXETIL Inactive BACTRIM DS 800-160 MG TAB 1 tab by mouth twice daily 2 BACTRIM DS 800-160 MG TAB 19830105 TRIMETHOPRIM-SULFAMETHOXAZOLE Inac tive ZITHROMAX 250 MG TAB 2 po today, then 1 po q days 2-5 ZITHROMAX 250 MG TAB 7892735 AZITHROMYCIN Inactive BACTRIM DS 800-160 MG TAB [...] leukocyte count, blood 8.8 10^3/MM^3 10*3/mm3 4.6-10.2 hematocrit, blood 46.5 % 37.0-47.0 mean corpuscular volume, RBC 95 fL 80-97 mean corpuscular hemoglobin, RBC 32.3 pg 27. 0-31.2 mean corpuscular hemoglobin concentration, RBC 34.0 G/DL % 31.8-35.4 red blood cell distribution width 11.7 % 11 .6-14.8 platelet count 349 10^3/MM^3 10*3/mm3 375-145 9172/06/14 neutrophils as percent of blood leukocytes 56.3 % 42.2-75.2 monocytes as percent of blood leukocytes 8.7 % 1.7-9.3 lymphocytes as percent of blood leukocytes 28.7 % 20.5-51.1 erythrocyte (RBC) count 4.91 10^6/MM^3 10*6/mm3 3.80-5.8 0 hemoglobin, blood 15.8 g/dL 12.0-16.0 Lab Report: Comp. Metabolic Panel, Lipid Panel, Thyroid Stimulating Horm ... - Chemistry sodium, serum 144 mmol/L 743-038 7731/06/14 carbon dioxide, venous blood 29.4 mmol/L 21.0-32 .0 potassium, serum 4.4 mmol/L 3.5-5.2 chloride, serum 108 mmol/L 98-107 blood glucose 100 mg/dL 65-110 urea nitrogen, blood 9 mg/dL 7-18 creatinine, serum 0.67 mg/dL 0.55-1.30 alanine aminotransferase (SGPT), serum 24 U/L 12-78 aspartate aminotransferase (SGOT), serum 15 U/L 15-37 calcium, serum 9.3 mg/dL 8.5-10.1 bilirubin, serum, total 0.50 mg/dL 0.00-1.00 cholesterol, serum 268 mg/dL 727-320 6004/06/14 triglyceride, serum, fasting 126 mg/dL 30-200 HDL [...] mg/dL Encounters Code Encounter Date Provider Facility CPT-82536 Level 4 Est. Patient 13:24:25 CDT Stephanie MERCADO [facility] CPT-64390 Level 4 Est. Patient 09:14:56 CDT Tesfaye pearson MD [facility]-41485 Level 4 Est. Patient 18:40:25 NUT SORTER Tesfaye pearson MD [facility]-60070 Level 4 Est. Patient 18:13:07 NUT SORTER Tesfaye pearson MD [facility] CPT-61663 Level 3 Est. Patient 10:46:32 CDT Rj cotto DO [facility] CPT-45052 Level 4 Est. Patient 20:19:25 CDT Tesfaye pearson MD [facility]-84636 Level 3 Est. Patient 09:07:31 CDT Tesfaye pearson MD [facility]-06925 Level 4 Est. Patient 13:12:56 CDT Tesfaye pearson MD [facility]-11199 Level 4 Est. Patient 21:24:55 NUT SORTER Tesfaye pearson MD [facility]-02113 Level 3 Est. Patient 13:45:04 NUT SORTER Tesfaye pearson MD [facility] CPT-71341 Level 4 Est. Patient 13:50:45 CDT Tesfaye pearson MD [facility] CPT-41575 Level 3 Est. Patient 10:16:10 CDT Tesfaye pearson MD [facility] CPT-77196 Level 3 Est. Patient 16:36:07 NUT SORTER Kayla jameson MD [facility]-09606 Level 4 Est. Patient 16:00:14 NUT SORTER Tesfaye pearson MD [facility]-93899 Level 4 Est. Patient 11:02:24 NUT SORTER Tesfaye eparson MD [facility]-27521 Level 3 Est. Patient 20:21:43 NUT SORTER Kayla jameson MD [facility]-88826 Level 3 Est. Patient 13:27:28 NUT SORTER Kayla jameson MD [facility] CPT-37731 Level 4 Est. Patient 15:57:17 NUT SORTER Tesfaye pearson MD [facility] CPT-09140 Level 3 New Patient 13:25:47 CDT Tesfaye kidd MD [facility] CPT-76662 Level 3 New Patient 17:22:21 CDT Kayla angel MD [facility] Procedures Code Procedure Name Date Entry Date Standard Desc ription CPT-07393 Foot, right, comp min 3V - XRAY USE ONLY 10:38:34 CDT CPT-G0439 Subsequent Annual Wellness Exam 13:55:04 CDT CPT-G0438 Initial Annual Wellness Exam 11:23:17 CD T CPT-J2930 Solu Medrol 125 mg (Methyl Prednisolone Sodium Succinate) 17:29:12 NUT SORTER CPT-68562 Abx/Therapy Injection 17:29:11 NUT SORTER CPT-J2930 Solu Medrol 125 mg (Methyl Prednisolone Sodium Succinate) 12:34:38 NUT SORTER CPT-J3420 Vitamin B12 1000mcg (Cyanocobalamin) 09:12:55 CDT CPT-J3420 Vitamin B12 1000mcg (Cyanocobalamin) 16:28:06 NUT SORTER CPT-83638 Venipuncture Draw Fee 08:39:53 CDT CPT-J3420 Vitamin B12 1000mcg (Cyanocobalamin) 08:46:22 CDT CPT-01678 Abx/Therapy Injection 08:46:22 CDT CPT-J3420 Vitamin B12 1000mcg (Cyanocobalamin) 08:41:26 CDT CPT-10262 Abx/Therapy Injection 08:41:26 CDT CPT-J3420 Vitamin B12 1000mcg (Cyanocobalamin) 08:57:15 CDT CPT-23960 Abx/Therapy Injection 08:57:15 CDT CPT-J3420 Vitamin B12 1000mcg (Cyanocobalamin) 10:59:03 CDT CPT-18873 Abx/Therapy Injection 10:59:03 CDT CPT-J3420 Vitamin B12 1000mcg (Cyanocobalamin) 15:05:39 CDT CPT-04950 Abx/Therapy Injection 15:05:39 CDT CPT-J3420 Vitamin B12 1000mcg (Cyanocobalamin) 13:50:45 CDT CPT-J3420 Vitamin B12 1000mcg (Cyanocobalamin) 08:48:55 CDT CPT-86212 Abx/Therapy Injection 08:48:55 CDT CPT-J3420 Vitamin B12 1000mcg (Cyanocobalamin) 09:14:54 CDT CPT-14743 Abx/Therapy Injection 09:14:54 CDT CPT-J3420 Vitamin B12 1000mcg (Cyanocobalamin) 09:06:06 CDT CPT-99620 Abx/Therapy Injection 09:06:06 CDT CPT-J3420 Vitamin B12 1000mcg (Cyanocobalamin) 09:49:14 CDT CPT-15357 Abx/Therapy Injection 09:49:14 CDT CPT-J3420 Vitamin B12 1000mcg (Cyanocobalamin) 09:10:30 NUT SORTER CPT-60314 Abx/Therapy Injection 09:10:30 NUT SORTER CPT-J3420 Vitamin B12 1000mcg (Cyanocobalamin) 09:11:07 NUT SORTER CPT-15638 Abx/Therapy Injection 09:11:07 NUT SORTER CPT-J3420 Vitamin B12 1000mcg (Cyanocobalamin) 09:57:03 NUT SORTER CPT-45527 Abx/Therapy Injection 09:57:03 NUT SORTER CPT-J3420 Vitamin B12 1000mcg (Cyanocobalamin) 09:23:21 NUT SORTER CPT-29878 Abx/Therapy Injection 09:23:21 NUT SORTER CPT-00117 Urine Dip (Floor Use Only) 20:21:44 NUT SORTER 201 02/12/11 CPT-83926 UA Dip Auto (Floor Use Only) 10:04:39 NUT SORTER 2 CPT-28716 Urine Dip (Floor Use Only) 13:27:28 NUT SORTER 201 02/12/01 CPT-20213 Bladder Scan 13:27:28 NUT SORTER CPT-37323 Abd single AP View 14:30:51 NUT SORTER CPT-OV Office Visit 10:15:43 CDT CPT-52106 Urine Dip (Floor Use Only) 17:22:21 CDT 201 02/09/02 CPT-76542 Bladder Scan 17:22:21 CDT
--- OUTSIDE RECORDS SUMMARY | 2020-05-05 12:20 | XMS REPORT | Clinical Summary ---
Author Author Jeri Hanley Organization [facility] Address Unknown Phone Unavailable Allergies, Adverse Reactions, [...] up to full dose 2 VENLAFAXINE HCL [id number] Active Chelsea Barba APRN Activ e DIFLUCAN 100 MG TAB 1 tablet by mouth daily FLU CONAZOLE 17090604057 No Longer Active Tesfaye Sherman MD Active BACTRIM DS 800-160 MG TAB 1 tab by mouth twice daily 2 TRIMETHOPRIM-SULFAMETHOXAZOLE 73160055576 No Longer Active Tesfaye Sherman MD Active BACTRIM DS 800-160 MG TAB 1 tab by mouth twice daily 2 TRIMETHOPRIM-SULFAMETHOXAZOLE 71150186656 No Longer Active Tesfaye Sherman MD Active DIFLUCAN 150 MG TAB 1 tablet by mouth daily FLU CONAZOLE 32384111738 No Longer Active Tesfaye Sherman MD Active BACTRIM DS 800-160 MG TAB 1 tab by mouth twice daily 2 TRIMETHOPRIM-SULFAMETHOXAZOLE 87816858146 No Longer Active Tesfaye Sherman MD Active ROPINIROLE HCL 0.25 MG ORAL TABS 1 TAB PO Q HS ROPINIROLE HCL 03020972818 Active Tesfaye Sherman MD Active CYMBALTA 30 MG CPEP 1 cap by mouth daily with 60mg DULOXETINE HCL 46432488238 Active Tesfaye Sherman MD Active CEFTIN 250 MG TAB 1 tablet twice daily x 7 days 11/19 CEFUROXIME AXETIL 96572825923 No Longer Active Tesfaye Sherman MD Acti ve DIFLUCAN 100 MG TABS 1 tablet by mouth every other day for 2 dos es FLUCONAZOLE 61033267522 No Longer Active Tesfaye Sherman MD Active DIFLUCAN 100 MG TAB 1 tablet by mouth daily X 3 DAYS 2 FLUCONAZOLE 41188672148 No Longer Active Rj Moss DO Active MIRTAZAPINE 15 MG ORAL TABS 1/2 tab by mouth at bedtime. MIRTAZAPINE 34620074412 No Longer Active Tesfaye Sherman MD Acti ve BACTRIM DS 800-160 MG TAB 1 tab by mouth twice daily 2 TRIMETHOPRIM-SULFAMETHOXAZOLE 81237239980 No Longer Active Tesfaye Sherman MD Active PRAMIPEXOLE DIHYDROCHLORIDE 0.125 MG ORAL TABS take 1 tablet po qhs for restless leg syndrome. PRAMIPEXOLE DIHYDROCHLORIDE 96227630420 No Longer Active Tesfaye Sherman MD Active MAGNESIUM 400 MG ORAL TABS 1 tab po daily MAGNESI UM 79961368632 Active Chelsea Barba APRN Active SUDAFED 24 HOUR 240 MG ORAL [id number] 1 tab po daily PSEUDOEPHEDRINE HCL 39692040484 Active Chelsea Barba APRN A ctive CETIRIZINE HCL 5 MG TABS Take 1 tablet by mouth daily CETIRIZINE HCL 35471736241 No Longer Active Chelsea Barba APRN Acti ve TRIMETHOPRIM 100 MG TABS 1/2 qd TRIMETHOPRIM 26184485572 No Longer Active Chelsea Barba APRN Active BACTRIM DS 800-160 MG TAB 1 tab by mouth twice daily 2 TRIMETHOPRIM-SULFAMETHOXAZOLE 74559031763 No Longer Active Tesfaye Sherman MD Active BACTRIM DS 800-160 MG TAB 1 tab by mouth twice daily X 10 DAYS 2 TRIMETHOPRIM-SULFAMETHOXAZOLE 05750353492 No Longer Active Umer Sherman MD Active AMOXICILLIN 500 MG CAPS 1 cap by mouth three times a day AMOXICILLIN 71003000341 No Longer Active Adriana Arredondo Active MECLIZINE HCL 25 MG TAB one tab po qday prn dizziness MECLIZINE HCL 99181459848 Active Tesfaye Sherman MD Active B-12 1000 MCG ORAL LOZG 1 tab po daily CYANOCOBAL STANTON 31567233258 Active Tesfaye Sherman MD Active VITAMIN D3 2000 UNIT TABS 1 daily, for vitamin D deficiency 2014 CHOLECALCIFEROL 54722408111 No Longer Active Tesfaye Sherman MD Active TIZANIDINE HCL 2 MG TABS take 1-2 tablet by mouth ev at bedtime at 9pm PRN TIZANIDINE HCL 81814923091 Active Tesfaye Owusu Active ZITHROMAX 250 MG TAB 2 po today, then 1 po q days 2-5 AZITHROMYCIN 39661723874 No Longer Active Tesfaye Sherman MD Acti ve BACTRIM DS 800-160 MG TAB 1 tab by mouth twice daily 2 TRIMETHOPRIM-SULFAMETHOXAZOLE 99275698523 No Longer Active Tesfaye Sherman MD Active PRELIEF 340 (65-50) MG (CA-P) ORAL TABS CALCIUM GLYCEROPHOSPHATE 40455145206 Active Tesfaye Sherman MD Active [facility] NIACIN FLUSH FREE 400-100 MG CAPS 1 daily NIACIN-INOSITOL 64864504913 Active Kayla Cooper MD Active DIFLUCAN 150 MG TABS 1 qd FLUCONAZOLE 46374 599229 No Longer Active Kayla Cooper MD Active FLUTICASONE PROPIONATE 50 MCG/ACT SUSP 1 spray each nostril twice daily FLUTICASONE PROPIONATE 56643426869 Active Tesfaye armenta MD Active LOVASTATIN 20 MG TABS Take 1 tablet by mouth daily LOVASTATIN 03402652843 No Longer Active Tesfaye Sherman MD Active MELOXICAM 7.5 MG TABS 1 tablet by mouth daily Gisela ELOXICAM 24604563804 No Longer Active Tesfaye Sherman MD Active GABAPENTIN 300 MG CAPS Take two tablets by mouth every evening GABAPENTIN 56647482558 No Longer Active Edith Burch MD Active OXYCODONE-ACETAMINOPHEN 5-325 MG TABS Take one tablet by mouth every 6 hours as needed. Max 12 tabs/day as needed OXYCODONE-ACETAMINOP HEN 45452008339 Active Tesfaye Sherman MD Active CYMBALTA 60 MG CPEP Take 1 tablet by mouth daily D ULOXETINE HCL 56806147691 Active Kayla Cooper MD Active CLONAZEPAM 0.5 MG TABS Take one tablet in the morning and 1.5 table t at 7pm CLONAZEPAM 37710499747 Active Kayla Cooper MD Active BACLOFEN 10 MG TABS Take one tablet by mouth three times a day BACLOFEN 98003994479 Active Kayla Cooper MD Active GABAPENTIN 300 MG CAPS Take two tablets by mouth every evening GABAPENTIN 300 MG CAPS 759918 GABAPENTIN Inactive MELOXICAM 7.5 MG TABS 1 tablet by mouth daily MELOXICAM 7.5 MG TABS 046455 MELOXICAM Inactive LOVASTATIN 20 MG TABS Take 1 tablet by mouth daily 201 02/12/20 LOVASTATIN 20 MG TABS 614741 LOVASTATIN Inactive DIFLUCAN 150 MG TABS 1 qd DIFLUCAN 150 MG T ABS 994367 FLUCONAZOLE Inactive VITAMIN D3 2000 UNIT TABS 1 daily, for vitamin D deficiency 2014 VITAMIN D3 2000 UNIT TABS CHOLECALCIFEROL Inacti ve AMOXICILLIN 500 MG CAPS 1 cap by mouth three times a day AMOXICILLIN 500 MG CAPS 825088 AMOXICILLIN Inactive BACTRIM DS 800-160 MG TAB 1 tab by mouth twice daily X 10 DAYS 2 BACTRIM DS 800-160 MG TAB 19830105 TRIMETHOPRIM-SULFAMETH OXAZOLE Inactive TRIMETHOPRIM 100 MG TABS 1/2 qd TRIMETHOPRI M 100 MG TABS 530341 TRIMETHOPRIM Inactive CETIRIZINE HCL 5 MG TABS Take 1 tablet by mouth daily CETIRIZINE HCL 5 MG TABS 2680628 CETIRIZINE HCL Inactive PRAMIPEXOLE DIHYDROCHLORIDE 0.125 MG ORAL TABS take 1 tablet po qhs for restless leg syndrome. PRAMIPEXOLE DIHYDROC HLORIDE 0.125 MG ORAL TABS 303061 PRAMIPEXOLE DIHYDROCHLORIDE Inactive MIRTAZAPINE 15 MG ORAL TABS 1/2 tab by mouth at bedtime. MIRTAZAPINE 15 MG ORAL TABS 911521 MIRTAZAPINE Inactive DIFLUCAN 100 MG TAB 1 tablet by mouth daily X 3 DAYS 2 DIFLUCAN 100 MG TAB 427524 FLUCONAZOLE Inactive DIFLUCAN 100 MG TABS 1 tablet by mouth every other day for 2 dos es DIFLUCAN 100 MG TABS 517693 FLUCONAZOLE Inactive CEFTIN 250 MG TAB 1 tablet twice daily x 7 days 11/19 CEFTIN 250 MG TAB 033569 CEFUROXIME AXETIL Inactive BACTRIM DS 800-160 MG TAB 1 tab by mouth twice daily 2 BACTRIM DS 800-160 MG TAB 19830105 TRIMETHOPRIM-SULFAMETHOXAZOLE Inac tive ZITHROMAX 250 MG TAB 2 po today, then 1 po q days 2-5 ZITHROMAX 250 MG TAB 1617872 AZITHROMYCIN Inactive BACTRIM DS 800-160 MG TAB [...] daily 2 BACTRIM DS 800-160 MG TAB 899909 TRIMETHOPRIM-SULFAMETHOXAZOLE Inac tive DIFLUCAN 100 MG TAB 1 tablet by mouth daily DIFLUCAN 100 MG TAB 246900 FLUCONAZOLE Inactive Advance Directives Directive Description Start [...] ... - Chemistry sodium, serum 144 mmol/L 520-027 2736/06/14 carbon dioxide, venous blood 29.4 mmol/L 21.0-32 .0 potassium, serum 4.4 mmol/L 3.5-5.2 chloride, serum 108 mmol/L 98-107 blood glucose 100 mg/dL 65-110 urea nitrogen, blood 9 mg/dL 7-18 creatinine, serum 0.67 mg/dL 0.55-1.30 alanine aminotransferase (SGPT), serum 24 U/L 12-78 aspartate aminotransferase (SGOT), serum 15 U/L 15-37 calcium, serum 9.3 mg/dL 8.5-10.1 bilirubin, serum, total 0.50 mg/dL 0.00-1.00 cholesterol, serum 268 mg/dL 346-517 8131/06/14 triglyceride, serum, fasting 126 mg/dL 30-200 HDL [...] mg/dL Encounters Code Encounter Date Provider Facility CPT-23804 Level 4 Est. Patient 09:14:56 CDT Tesfaye pearson MD [facility] CPT-98255 Level 4 Est. Patient 18:40:25 SAW MAN Tesfaye pearson MD [facility] CPT-96004 Level 4 Est. Patient 18:13:07 SAW MAN Tesfaye pearson MD [facility] CPT-01104 Level 3 Est. Patient 10:46:32 CDT Rj cotto DO [facility] CPT-07503 Level 4 Est. Patient 20:19:25 CDT Tesfaye pearson MD [facility] CPT-83437 Level 3 Est. Patient 09:07:31 CDT Tesfaye pearson MD [facility] CPT-50331 Level 4 Est. Patient 13:12:56 CDT Tesfaye pearson MD [facility] CPT-72477 Level 4 Est. Patient 21:24:55 SAW MAN Tesfaye pearson MD [facility] CPT-36179 Level 3 Est. Patient 13:45:04 SAW MAN Tesfaye pearson MD [facility] CPT-13598 Level 4 Est. Patient 13:50:45 CDT Tesfaye pearson MD [facility] CPT-67640 Level 3 Est. Patient 10:16:10 CDT Tesfaye pearson MD [facility] CPT-34821 Level 3 Est. Patient 16:36:07 SAW MAN Kayla jameson MD [facility] CPT-72618 Level 4 Est. Patient 16:00:14 SAW MAN Tesfaye pearson MD [facility] CPT-51858 Level 4 Est. Patient 11:02:24 SAW MAN Tesfaye pearson MD [facility] CPT-94428 Level 3 Est. Patient 20:21:43 SAW MAN Kayla jameson MD [facility] CPT-05418 Level 3 Est. Patient 13:27:28 SAW MAN Kayla jameson MD [facility] CPT-96327 Level 4 Est. Patient 15:57:17 SAW MAN Tesfaye pearson MD [facility] CPT-56577 Level 3 New Patient 13:25:47 CDT Tesfaye kidd MD [facility] CPT-61301 Level 3 New Patient 17:22:21 CDT Kayla angel MD [facility] Procedures Code Procedure Name Date Entry Date Standard Desc ription CPT-19309 Foot, right, comp min 3V - XRAY USE ONLY 10:38:34 CDT CPT-G0439 Subsequent Annual Wellness Exam 13:55:04 CDT CPT-G0438 Initial Annual Wellness Exam 11:23:17 CD T CPT-J2930 Solu Medrol 125 mg (Methyl Prednisolone Sodium Succinate) 17:29:12 SAW MAN CPT-40694 Abx/Therapy Injection 17:29:11 SAW MAN CPT-J2930 Solu Medrol 125 mg (Methyl Prednisolone Sodium Succinate) 12:34:38 SAW MAN CPT-J3420 Vitamin B12 1000mcg (Cyanocobalamin) 09:12:55 CDT CPT-J3420 Vitamin B12 1000mcg (Cyanocobalamin) 16:28:06 SAW MAN CPT-99771 Venipuncture Draw Fee 08:39:53 CDT CPT-J3420 Vitamin B12 1000mcg (Cyanocobalamin) 08:46:22 CDT CPT-71007 Abx/Therapy Injection 08:46:22 CDT CPT-J3420 Vitamin B12 1000mcg (Cyanocobalamin) 08:41:26 CDT CPT-62979 Abx/Therapy Injection 08:41:26 CDT CPT-J3420 Vitamin B12 1000mcg (Cyanocobalamin) 08:57:15 CDT CPT-03218 Abx/Therapy Injection 08:57:15 CDT CPT-J3420 Vitamin B12 1000mcg (Cyanocobalamin) 10:59:03 CDT CPT-90021 Abx/Therapy Injection 10:59:03 CDT CPT-J3420 Vitamin B12 1000mcg (Cyanocobalamin) 15:05:39 CDT CPT-34818 Abx/Therapy Injection 15:05:39 CDT CPT-J3420 Vitamin B12 1000mcg (Cyanocobalamin) 13:50:45 CDT CPT-J3420 Vitamin B12 1000mcg (Cyanocobalamin) 08:48:55 CDT CPT-08455 Abx/Therapy Injection 08:48:55 CDT CPT-J3420 Vitamin B12 1000mcg (Cyanocobalamin) 09:14:54 CDT CPT-52470 Abx/Therapy Injection 09:14:54 CDT CPT-J3420 Vitamin B12 1000mcg (Cyanocobalamin) 09:06:06 CDT CPT-50417 Abx/Therapy Injection 09:06:06 CDT CPT-J3420 Vitamin B12 1000mcg (Cyanocobalamin) 09:49:14 CDT CPT-40279 Abx/Therapy Injection 09:49:14 CDT CPT-J3420 Vitamin B12 1000mcg (Cyanocobalamin) 09:10:30 SAW MAN CPT-85605 Abx/Therapy Injection 09:10:30 SAW MAN CPT-J3420 Vitamin B12 1000mcg (Cyanocobalamin) 09:11:07 SAW MAN CPT-93272 Abx/Therapy Injection 09:11:07 SAW MAN CPT-J3420 Vitamin B12 1000mcg (Cyanocobalamin) 09:57:03 SAW MAN CPT-22721 Abx/Therapy Injection 09:57:03 SAW MAN CPT-J3420 Vitamin B12 1000mcg (Cyanocobalamin) 09:23:21 SAW MAN CPT-55800 Abx/Therapy Injection 09:23:21 SAW MAN CPT-59127 Urine Dip (Floor Use Only) 20:21:44 SAW MAN 201 02/12/11 CPT-41553 UA Dip Auto (Floor Use Only) 10:04:39 SAW MAN 2 CPT-58388 Urine Dip (Floor Use Only) 13:27:28 SAW MAN 201 02/12/01 CPT-04878 Bladder Scan 13:27:28 SAW MAN CPT-79523 Abd single AP View 14:30:51 SAW MAN CPT-OV Office Visit 10:15:43 CDT CPT-81801 Urine Dip (Floor Use Only) 17:22:21 CDT 201 02/09/02 CPT-64482 Bladder Scan 17:22:21 CDT
--- OUTSIDE RECORDS SUMMARY | 2020-05-05 12:20 | XMS REPORT | Clinical Summary ---
Author Author Talon, Jeri Wood Organization [facility] Address Unknown Phone Unavailable Allergies, Adverse Reactions, [...] daily, for vitamin D deficiency 2014 CHOLECALCIFEROL 02451683894 No Longer Active Tesfaye Sherman MD Active TIZANIDINE HCL 2 MG TABS take 1-2 tablet by mouth ev at bedtime at 9pm PRN TIZANIDINE HCL 17204191890 Active Tesfaye Owusu Active ZITHROMAX 250 MG TAB 2 po today, then 1 po q days 2-5 AZITHROMYCIN 02797672443 No Longer Active Tesfaye Sherman MD Acti ve BACTRIM DS 800-160 MG TAB 1 tab by mouth twice daily 2 TRIMETHOPRIM-SULFAMETHOXAZOLE 84209557316 No Longer Active Tesfaye Sherman MD Active PRELIEF 340 (65-50) MG (CA-P) ORAL TABS CALCIUM GLYCEROPHOSPHATE 84239863731 Active Tesfaye Sherman MD Active [facility] NIACIN FLUSH FREE 400-100 MG CAPS 1 daily NIACIN-INOSITOL 78020915858 Active Kayla Cooper MD Active DIFLUCAN 150 MG TABS 1 qd FLUCONAZOLE 55273 910593 No Longer Active Kayla Cooper MD Active FLUTICASONE PROPIONATE 50 MCG/ACT SUSP 1 spray each nostril twice daily FLUTICASONE PROPIONATE 36970677682 Active Tesfaye armenta MD Active LOVASTATIN 20 MG TABS Take 1 tablet by mouth daily LOVASTATIN 79505122735 No Longer Active Tesfaye Sherman MD Active MELOXICAM 7.5 MG TABS 1 tablet by mouth daily M ELOXICAM 86226057362 No Longer Active Tesfaye Sherman MD Active GABAPENTIN 300 MG CAPS Take two tablets by mouth every evening GABAPENTIN 36968890618 No Longer Active Edith Burch MD Active TRIMETHOPRIM 100 MG TABS 1/2 qd TRIMETHOPRIM 9142689 3001 Active Kayla Cooper MD Active OXYCODONE-ACETAMINOPHEN 5-325 MG TABS Take one tablet by mouth every 6 hours as needed. Max 12 tabs/day as needed OXYCODONE-ACETAMINOP HEN 60274693148 Active Tesfaye Sherman MD Active CYMBALTA 60 MG CPEP Take 1 tablet by mouth daily D ULOXETINE HCL 78986933141 Active Kayla Cooper MD Active CLONAZEPAM 0.5 MG TABS Take one tablet in the morning and 1.5 table t at 7pm CLONAZEPAM 32079803592 Active Kayla Cooper MD Active CETIRIZINE HCL 5 MG TABS Take 1 tablet by mouth daily CETIRIZINE HCL 94983665050 Active Kayla Cooper MD Active BACLOFEN 10 MG TABS Take one tablet by mouth three times a day BACLOFEN 00946713327 Active Kayla Cooper MD Active GABAPENTIN 300 MG CAPS Take two tablets by mouth every evening GABAPENTIN 300 MG CAPS 490532 GABAPENTIN Inactive MELOXICAM 7.5 MG TABS 1 tablet by mouth daily MELOXICAM 7.5 MG TABS 261094 MELOXICAM Inactive LOVASTATIN 20 MG TABS Take 1 tablet by mouth daily 201 02/12/20 LOVASTATIN 20 MG TABS 546328 LOVASTATIN Inactive DIFLUCAN 150 MG TABS 1 qd DIFLUCAN 150 MG T ABS 745681 FLUCONAZOLE Inactive VITAMIN D3 2000 UNIT TABS 1 daily, for vitamin D deficiency 2014 VITAMIN D3 2000 UNIT TABS CHOLECALCIFEROL Inacti ve BACTRIM DS 800-160 MG TAB 1 tab by mouth twice daily 2 BACTRIM DS 800-160 MG TAB TRIMETHOPRIM-SULFAMETHOXAZOLE Inac tive ZITHROMAX 250 MG TAB 2 po today, then 1 po q days 2-5 ZITHROMAX 250 MG TAB 9499094 AZITHROMYCIN Inactive Advance Directives Directive Description Start [...] Panel - Chemistry sodium, serum 138 mmol/L 069-107 3164/10/20 potassium, serum 4.5 mmol/L 3.5-5.2 chloride, serum [...] 0.90 mg/dL 0.00-1.00 cholesterol, serum 237 mg/dL 637-916 6553/10/20 triglyceride, serum, fasting 71 mg/dL 30-200 HDL [...] Panel - Chemistry cholesterol, serum 221 mg/dL 795-517 8941/01/23 triglyceride, serum, fasting 81 mg/dL 30-200 HDL [...] negative Encounters Code Encounter Date Provider Facility CPT-17566 Level 4 Est. Patient 13:50:45 CDT Tesfaye pearson MD [facility] CPT-59550 Level 3 Est. Patient 10:16:10 CDT Tesafye pearson MD [facility] CPT-99842 Level 3 Est. Patient 16:36:07 IT RISK ANALYST Kayla jameson MD [facility]-48351 Level 4 Est. Patient 16:00:14 IT RISK ANALYST Tesfaye pearson MD [facility] CPT-63854 Level 4 Est. Patient 11:02:24 IT RISK ANALYST Tesfaye pearson MD [facility] CPT-29808 Level 3 Est. Patient 20:21:43 IT RISK ANALYST Kayla jameson MD [facility] CPT-51662 Level 3 Est. Patient 13:27:28 IT RISK ANALYST Kayla jameson MD [facility]-08353 Level 4 Est. Patient 15:57:17 IT RISK ANALYST Tesfaye pearson MD [facility] CPT-57124 Level 3 New Patient 13:25:47 CDT Tesfaye kidd MD [facility] CPT-14619 Level 3 New Patient 17:22:21 CDT Kayla angel MD [facility] Procedures Code Procedure Name Date Entry Date Standard Desc ription CPT-J3420 Vitamin B12 1000mcg (Cyanocobalamin) 15:05:39 CDT CPT-77587 Abx/Therapy Injection 15:05:39 CDT CPT-J3420 Vitamin B12 1000mcg (Cyanocobalamin) 13:50:45 CDT CPT-J3420 Vitamin B12 1000mcg (Cyanocobalamin) 08:48:55 CDT CPT-69472 Abx/Therapy Injection 08:48:55 CDT CPT-J3420 Vitamin B12 1000mcg (Cyanocobalamin) 09:14:54 CDT CPT-03912 Abx/Therapy Injection 09:14:54 CDT CPT-J3420 Vitamin B12 1000mcg (Cyanocobalamin) 09:06:06 CDT CPT-71791 Abx/Therapy Injection 09:06:06 CDT CPT-J3420 Vitamin B12 1000mcg (Cyanocobalamin) 09:49:14 CDT CPT-08605 Abx/Therapy Injection 09:49:14 CDT CPT-J3420 Vitamin B12 1000mcg (Cyanocobalamin) 09:10:30 IT RISK ANALYST CPT-00570 Abx/Therapy Injection 09:10:30 IT RISK ANALYST CPT-J3420 Vitamin B12 1000mcg (Cyanocobalamin) 09:11:07 IT RISK ANALYST CPT-69764 Abx/Therapy Injection 09:11:07 IT RISK ANALYST CPT-J3420 Vitamin B12 1000mcg (Cyanocobalamin) 09:57:03 IT RISK ANALYST CPT-99503 Abx/Therapy Injection 09:57:03 IT RISK ANALYST CPT-J3420 Vitamin B12 1000mcg (Cyanocobalamin) 09:23:21 IT RISK ANALYST CPT-29678 Abx/Therapy Injection 09:23:21 IT RISK ANALYST CPT-57518 Urine Dip (Floor Use Only) 20:21:44 IT RISK ANALYST 201 02/12/11 CPT-66720 UA Dip Auto (Floor Use Only) 10:04:39 IT RISK ANALYST 2 CPT-09714 Urine Dip (Floor Use Only) 13:27:28 IT RISK ANALYST 201 02/12/01 CPT-10898 Bladder Scan 13:27:28 IT RISK ANALYST CPT-73965 Abd single AP View 14:30:51 IT RISK ANALYST CPT-OV Office Visit 10:15:43 CDT CPT-86339 Urine Dip (Floor Use Only) 17:22:21 CDT 201 02/09/02 CPT-76813 Bladder Scan 17:22:21 CDT
--- OUTSIDE RECORDS SUMMARY | 2020-05-05 12:20 | XMS REPORT | Clinical Summary ---
Author Author Talon, Jeri Wood Organization [employer] Address Unknown Phone Unavailable Allergies, Adverse [...] diabetes mellitus U T I-Recurrent 599.0 Active Kalya Owusu Urinary tract infection, site not specified [...] lying down x 1 hour. ALENDRONATE SODIUM [id number] Active Tesfaye Sherman MD Active REPHRESH PRO-B ORAL CAPS 1 tablet daily LACTOBACI LLUS 11692925750 Active Edith Burch MD Active CYMBALTA 60 MG CPEP Take 1 tablet by mouth daily 1 DULOXETINE HCL 48347478545 No Longer Active Edith Burch MD Active CYMBALTA 30 MG CPEP 1 cap by mouth daily with 60mg 201 05/09/11 DULOXETINE HCL 58519450935 No Longer Active Edith Burch MD Activ e FISH OIL 1000 MG CPDR 1 pill by mouth daily for cholesterol 04/18 OMEGA- 3 FATTY ACIDS 18681791450 Active Rosa Jaffe LPN Acti ve RED YEAST RICE 600 MG CAPS 1 pill by mouth daily RED YEAST RICE EXTRACT 06167207220 Active Rosa Jaffe LPN Activ e VENLAFAXINE HCL 37.5 MG TABS 1/4 tab po titrating up to full dose 2 VENLAFAXINE HCL 75925552782 Active Chelsea Barba APRN Activ e DIFLUCAN 100 MG TAB 1 tablet by mouth daily FLU CONAZOLE 95398670373 No Longer Active Tesfaye Sherman MD Active BACTRIM DS 800-160 MG TAB 1 tab by mouth twice daily 2 TRIMETHOPRIM-SULFAMETHOXAZOLE 66249552135 No Longer Active Tesfaye Sherman MD Active BACTRIM DS 800-160 MG TAB 1 tab by mouth twice daily 2 TRIMETHOPRIM-SULFAMETHOXAZOLE 17546341578 No Longer Active Tesfaye Sherman MD Active DIFLUCAN 150 MG TAB 1 tablet by mouth daily FLU CONAZOLE 59092787152 No Longer Active Tesfaye Sherman MD Active BACTRIM DS 800-160 MG TAB 1 tab by mouth twice daily 2 TRIMETHOPRIM-SULFAMETHOXAZOLE 51108351901 No Longer Active Tesfaye Sherman MD Active ROPINIROLE HCL 0.25 MG ORAL TABS 1 TAB PO Q HS ROPINIROLE HCL 89960019139 Active Tesfaye Sherman MD Active CEFTIN 250 MG TAB 1 tablet twice daily x 7 days 11/19 CEFUROXIME AXETIL 75145210552 No Longer Active Tesfaye Sherman MD Acti ve DIFLUCAN 100 MG TABS 1 tablet by mouth every other day for 2 dos es FLUCONAZOLE 04888334024 No Longer Active Tesfaye Sherman MD Active DIFLUCAN 100 MG TAB 1 tablet by mouth daily X 3 DAYS 2 FLUCONAZOLE 61430792553 No Longer Active Rj Moss DO Active MIRTAZAPINE 15 MG ORAL TABS 1/2 tab by mouth at bedtime. MIRTAZAPINE 93880286179 No Longer Active Tesfaye Sherman MD Acti ve BACTRIM DS 800-160 MG TAB 1 tab by mouth twice daily 2 TRIMETHOPRIM-SULFAMETHOXAZOLE 29961870354 No Longer Active Tesfaye Sherman MD Active PRAMIPEXOLE DIHYDROCHLORIDE 0.125 MG ORAL TABS take 1 tablet po qhs for restless leg syndrome. PRAMIPEXOLE DIHYDROCHLORIDE 21535827486 No Longer Active Tesfaye Sherman MD Active MAGNESIUM 400 MG ORAL TABS 1 tab po daily MAGNESI UM 35938532917 Active Chelsea Barba APRN Active SUDAFED 24 HOUR 240 MG ORAL [id number] 1 tab po daily PSEUDOEPHEDRINE HCL 06959308394 Active Chelsea Barba APRN A ctive CETIRIZINE HCL 5 MG TABS Take 1 tablet by mouth daily CETIRIZINE HCL 49393093220 No Longer Active Chelsea Barba APRN Acti ve TRIMETHOPRIM 100 MG TABS 1/2 qd TRIMETHOPRIM 07134275325 No Longer Active Chelsea Barba APRN Active BACTRIM DS 800-160 MG TAB 1 tab by mouth twice daily 2 TRIMETHOPRIM-SULFAMETHOXAZOLE 34232049342 No Longer Active Tesfaye Sherman MD Active BACTRIM DS 800-160 MG TAB 1 tab by mouth twice daily X 10 DAYS 2 TRIMETHOPRIM-SULFAMETHOXAZOLE 72520415364 No Longer Active Umer Sherman MD Active AMOXICILLIN 500 MG CAPS 1 cap by mouth three times a day AMOXICILLIN 93922982052 No Longer Active Adriana Arredondo Active MECLIZINE HCL 25 MG TAB one tab po qday prn dizziness MECLIZINE HCL 14166760978 Active Tesfaye Sherman MD Active B-12 1000 MCG ORAL LOZG 1 tab po daily CYANOCOBAL STANTON 62092373351 Active Tesfaye Sherman MD Active VITAMIN D3 2000 UNIT TABS 1 daily, for vitamin D deficiency 2014 CHOLECALCIFEROL 76415180225 No Longer Active Tesfaye Sherman MD Active TIZANIDINE HCL 2 MG TABS take 1-2 tablet by mouth at bedtime at 9pm PRN TIZANIDINE HCL 70957683905 Active Tesfaye Owusu Active ZITHROMAX 250 MG TAB 2 po today, then 1 po q days 2-5 AZITHROMYCIN 52476036732 No Longer Active Tesfaye Sherman MD Acti ve BACTRIM DS 800-160 MG TAB 1 tab by mouth twice daily 2 TRIMETHOPRIM-SULFAMETHOXAZOLE 60197863584 No Longer Active Tesfaye Sherman MD Active PRELIEF 340 (65-50) MG (CA-P) ORAL TABS CALCIUM GLYCEROPHOSPHATE 29370699903 Active Tesfaye Sherman MD Active [facility] NIACIN FLUSH FREE 400-100 MG CAPS 1 daily NIACIN-INOSITOL 25353495320 Active Kayla Cooper MD Active DIFLUCAN 150 MG TABS 1 qd FLUCONAZOLE 20078 262029 No Longer Active Kayla Cooper MD Active FLUTICASONE PROPIONATE 50 MCG/ACT SUSP 1 spray each nostril twice daily FLUTICASONE PROPIONATE 73339840617 Active Tesfaye armenta MD Active LOVASTATIN 20 MG TABS Take 1 tablet by mouth daily LOVASTATIN 04104317093 No Longer Active Tesfaye Sherman MD Active MELOXICAM 7.5 MG TABS 1 tablet by mouth daily M ELOXICAM 97577072857 No Longer Active Tesfaye Sherman MD Active GABAPENTIN 300 MG CAPS Take two tablets by mouth every evening GABAPENTIN 98956172528 No Longer Active Edith Burch MD Active OXYCODONE-ACETAMINOPHEN 5-325 MG TABS Take one tablet by mouth every 6 hours as needed. Max 12 tabs/day as needed OXYCODONE-ACETAMINOP HEN 86828321486 Active Tesfaye Sherman MD Active CLONAZEPAM 0.5 MG TABS Take one tablet in the morning and 1.5 table t at 7pm CLONAZEPAM 73476183045 Active Kayla Cooper MD Active BACLOFEN 10 MG TABS Take one tablet by mouth three times a day BACLOFEN 17971826542 Active Kayla Cooper MD Active GABAPENTIN 300 MG CAPS Take two tablets by mouth every evening GABAPENTIN 300 MG CAPS 585773 GABAPENTIN Inactive MELOXICAM 7.5 MG TABS 1 tablet by mouth daily MELOXICAM 7.5 MG TABS 914288 MELOXICAM Inactive LOVASTATIN 20 MG TABS Take 1 tablet by mouth daily 201 02/12/20 LOVASTATIN 20 MG TABS 804890 LOVASTATIN Inactive DIFLUCAN 150 MG TABS 1 qd DIFLUCAN 150 MG T ABS 919642 FLUCONAZOLE Inactive VITAMIN D3 2000 UNIT TABS 1 daily, for vitamin D deficiency 2014 VITAMIN D3 2000 UNIT TABS CHOLECALCIFEROL Inacti ve AMOXICILLIN 500 MG CAPS 1 cap by mouth three times a day AMOXICILLIN 500 MG CAPS 097230 AMOXICILLIN Inactive BACTRIM DS 800-160 MG TAB 1 tab by mouth twice daily X 10 DAYS 2 BACTRIM DS 800-160 MG TAB 19830105 TRIMETHOPRIM-SULFAMETH OXAZOLE Inactive TRIMETHOPRIM 100 MG TABS 1/2 qd TRIMETHOPRI M 100 MG TABS 19830102 TRIMETHOPRIM Inactive CETIRIZINE HCL 5 MG TABS Take 1 tablet by mouth daily CETIRIZINE HCL 5 MG TABS 1053545 CETIRIZINE HCL Inactive PRAMIPEXOLE DIHYDROCHLORIDE 0.125 MG ORAL TABS take 1 tablet po qhs for restless leg syndrome. PRAMIPEXOLE DIHYDROC HLORIDE 0.125 MG ORAL TABS 654895 PRAMIPEXOLE DIHYDROCHLORIDE Inactive MIRTAZAPINE 15 MG ORAL TABS 1/2 tab by mouth at bedtime. MIRTAZAPINE 15 MG ORAL TABS 185421 MIRTAZAPINE Inactive DIFLUCAN 100 MG TAB 1 tablet by mouth daily X 3 DAYS 2 DIFLUCAN 100 MG TAB 040199 FLUCONAZOLE Inactive DIFLUCAN 100 MG TABS 1 tablet by mouth every other day for 2 dos es DIFLUCAN 100 MG TABS 856903 FLUCONAZOLE Inactive CEFTIN 250 MG TAB 1 tablet twice daily x 7 days 11/19 CEFTIN 250 MG TAB 485447 CEFUROXIME AXETIL Inactive CYMBALTA 30 MG CPEP 1 cap by mouth daily with 60mg 201 05/09/11 CYMBALTA 30 MG CPEP 863328 DULOXETINE HCL Inactive CYMBALTA 60 MG CPEP Take 1 tablet by mouth daily 05/13 CYMBALTA 60 MG CPEP 816326 DULOXETINE HCL Inactive BACTRIM DS 800-160 MG TAB 1 tab by mouth twice daily 2 BACTRIM DS 800-160 MG TAB 19830105 TRIMETHOPRIM-SULFAMETHOXAZOLE Inac tive ZITHROMAX 250 MG TAB 2 po today, then 1 po q days 2-5 ZITHROMAX 250 MG TAB 1282875 AZITHROMYCIN Inactive BACTRIM DS 800-160 MG TAB [...] by mouth daily DIFLUCAN 150 MG TAB 630624 FLUCONAZOLE Inactive BACTRIM DS 800-160 MG TAB 1 tab by mouth twice daily 2 BACTRIM DS 800-160 MG TAB 19830105 TRIMETHOPRIM-SULFAMETHOXAZOLE Inac tive BACTRIM DS 800-160 MG TAB 1 tab by mouth twice daily 2 BACTRIM DS 800-160 MG TAB 19830105 TRIMETHOPRIM-SULFAMETHOXAZOLE Inac tive DIFLUCAN 100 MG TAB 1 tablet by mouth daily DIFLUCAN 100 MG TAB 930390 FLUCONAZOLE Inactive Advance Directives Directive Description Start [...] ... - Chemistry sodium, serum 144 mmol/L 685-077 7724/06/14 carbon dioxide, venous blood 29.4 mmol/L 21.0-32 .0 potassium, serum 4.4 mmol/L 3.5-5.2 chloride, serum 108 mmol/L 98-107 blood glucose 100 mg/dL 65-110 urea nitrogen, blood 9 mg/dL 7-18 creatinine, serum 0.67 mg/dL 0.55-1.30 alanine aminotransferase (SGPT), serum 24 U/L 12-78 aspartate aminotransferase (SGOT), serum 15 U/L 15-37 calcium, serum 9.3 mg/dL 8.5-10.1 bilirubin, serum, total 0.50 mg/dL 0.00-1.00 cholesterol, serum 268 mg/dL 327-798 8657/06/14 triglyceride, serum, fasting 126 mg/dL 30-200 HDL [...] mg/dL Encounters Code Encounter Date Provider Facility CPT-69746 Level 4 Est. Patient 13:56:54 CDT Tesfaye pearson MD [facility] CPT-64444 Level 4 Est. Patient 13:24:25 CDT Stephanie MERCADO [facility] CPT-53305 Level 4 Est. Patient 09:14:56 CDT Tesfaye pearson MD [facility]-00472 Level 4 Est. Patient 18:40:25 DIRECTOR NETWORK DEVELOPMENT Tesfaye pearsno MD [facility]-79529 Level 4 Est. Patient 18:13:07 DIRECTOR NETWORK DEVELOPMENT Tesfaye pearson MD [facility]-80199 Level 3 Est. Patient 10:46:32 CDT Rj cotto DO [facility]-18664 Level 4 Est. Patient 20:19:25 CDT Tesfaye pearson MD [facility]-97506 Level 3 Est. Patient 09:07:31 CDT Tesfaye pearson MD [facility]-09444 Level 4 Est. Patient 13:12:56 CDT Tesfaye pearson MD [facility]-50140 Level 4 Est. Patient 21:24:55 DIRECTOR NETWORK DEVELOPMENT Tesfaye pearson MD [facility]-18580 Level 3 Est. Patient 13:45:04 DIRECTOR NETWORK DEVELOPMENT Tesfaye pearson MD [facility] CPT-09314 Level 4 Est. Patient 13:50:45 CDT Tesfaye pearson MD [facility] CPT-38177 Level 3 Est. Patient 10:16:10 CDT Tesfaye pearson MD [facility] CPT-37222 Level 3 Est. Patient 16:36:07 DIRECTOR NETWORK DEVELOPMENT Kayla jameson MD [facility]-78186 Level 4 Est. Patient 16:00:14 DIRECTOR NETWORK DEVELOPMENT Tesfaye pearson MD [facility]-12956 Level 4 Est. Patient 11:02:24 DIRECTOR NETWORK DEVELOPMENT Tesfaye pearson MD [facility]-13550 Level 3 Est. Patient 20:21:43 DIRECTOR NETWORK DEVELOPMENT Kayla jameson MD [facility]-36818 Level 3 Est. Patient 13:27:28 DIRECTOR NETWORK DEVELOPMENT Kayla jameson MD [facility] CPT-60691 Level 4 Est. Patient 15:57:17 DIRECTOR NETWORK DEVELOPMENT Tesfaye pearson MD [facility] CPT-11408 Level 3 New Patient 13:25:47 CDT Tesfaye kidd MD [facility] CPT-56612 Level 3 New Patient 17:22:21 CDT Kayla angel MD [facility] Procedures Code Procedure Name Date Entry Date Standard Desc ription CPT-77208 Bone Density - XRAY USE ONLY 11:43:58 CDT 2 CPT-37629 Bone Density - XRAY USE ONLY 10:05:16 CDT 2 CPT-15853 Prv Med New Pt 40-64 yrs 18:19:25 CDT 2016 CPT-64466 Foot, right, comp min 3V - XRAY USE ONLY 10:38:34 CDT CPT-G0439 Subsequent Annual Wellness Exam 13:55:04 CDT CPT-G0438 Initial Annual Wellness Exam 11:23:17 CD T CPT-J2930 Solu Medrol 125 mg (Methyl Prednisolone Sodium Succinate) 17:29:12 DIRECTOR NETWORK DEVELOPMENT CPT-59039 Abx/Therapy Injection 17:29:11 DIRECTOR NETWORK DEVELOPMENT CPT-J2930 Solu Medrol 125 mg (Methyl Prednisolone Sodium Succinate) 12:34:38 DIRECTOR NETWORK DEVELOPMENT CPT-J3420 Vitamin B12 1000mcg (Cyanocobalamin) 09:12:55 CDT CPT-J3420 Vitamin B12 1000mcg (Cyanocobalamin) 16:28:06 DIRECTOR NETWORK DEVELOPMENT CPT-01383 Venipuncture Draw Fee 08:39:53 CDT CPT-J3420 Vitamin B12 1000mcg (Cyanocobalamin) 08:46:22 CDT CPT-73494 Abx/Therapy Injection 08:46:22 CDT CPT-J3420 Vitamin B12 1000mcg (Cyanocobalamin) 08:41:26 CDT CPT-95005 Abx/Therapy Injection 08:41:26 CDT CPT-J3420 Vitamin B12 1000mcg (Cyanocobalamin) 08:57:15 CDT CPT-47168 Abx/Therapy Injection 08:57:15 CDT CPT-J3420 Vitamin B12 1000mcg (Cyanocobalamin) 10:59:03 CDT CPT-73145 Abx/Therapy Injection 10:59:03 CDT CPT-J3420 Vitamin B12 1000mcg (Cyanocobalamin) 15:05:39 CDT CPT-42765 Abx/Therapy Injection 15:05:39 CDT CPT-J3420 Vitamin B12 1000mcg (Cyanocobalamin) 13:50:45 CDT CPT-J3420 Vitamin B12 1000mcg (Cyanocobalamin) 08:48:55 CDT CPT-15686 Abx/Therapy Injection 08:48:55 CDT CPT-J3420 Vitamin B12 1000mcg (Cyanocobalamin) 09:14:54 CDT CPT-97082 Abx/Therapy Injection 09:14:54 CDT CPT-J3420 Vitamin B12 1000mcg (Cyanocobalamin) 09:06:06 CDT CPT-02826 Abx/Therapy Injection 09:06:06 CDT CPT-J3420 Vitamin B12 1000mcg (Cyanocobalamin) 09:49:14 CDT CPT-23682 Abx/Therapy Injection 09:49:14 CDT CPT-J3420 Vitamin B12 1000mcg (Cyanocobalamin) 09:10:30 DIRECTOR NETWORK DEVELOPMENT CPT-88421 Abx/Therapy Injection 09:10:30 DIRECTOR NETWORK DEVELOPMENT CPT-J3420 Vitamin B12 1000mcg (Cyanocobalamin) 09:11:07 DIRECTOR NETWORK DEVELOPMENT CPT-58629 Abx/Therapy Injection 09:11:07 DIRECTOR NETWORK DEVELOPMENT CPT-J3420 Vitamin B12 1000mcg (Cyanocobalamin) 09:57:03 DIRECTOR NETWORK DEVELOPMENT CPT-56041 Abx/Therapy Injection 09:57:03 DIRECTOR NETWORK DEVELOPMENT CPT-J3420 Vitamin B12 1000mcg (Cyanocobalamin) 09:23:21 DIRECTOR NETWORK DEVELOPMENT CPT-16241 Abx/Therapy Injection 09:23:21 DIRECTOR NETWORK DEVELOPMENT CPT-10916 Urine Dip (Floor Use Only) 20:21:44 DIRECTOR NETWORK DEVELOPMENT 201 02/12/11 CPT-86302 UA Dip Auto (Floor Use Only) 10:04:39 DIRECTOR NETWORK DEVELOPMENT 2 CPT-72909 Urine Dip (Floor Use Only) 13:27:28 DIRECTOR NETWORK DEVELOPMENT 201 02/12/01 CPT-04233 Bladder Scan 13:27:28 DIRECTOR NETWORK DEVELOPMENT CPT-96235 Abd single AP View 14:30:51 DIRECTOR NETWORK DEVELOPMENT CPT-OV Office Visit 10:15:43 CDT CPT-05404 Urine Dip (Floor Use Only) 17:22:21 CDT 201 02/09/02 CPT-74164 Bladder Scan 17:22:21 CDT
--- OUTSIDE RECORDS SUMMARY | 2020-05-05 12:20 | XMS REPORT | Clinical Summary ---
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.0 Active Kayla wOusu Urinary tract infection, site not specified Incomplete [...] daily, for vitamin D deficiency 2014 CHOLECALCIFEROL 56466661012 No Longer Active Tesfaye Sherman MD Active TIZANIDINE HCL 2 MG TABS take 1-2 tablet by mouth at bedtime at 9pm PRN TIZANIDINE HCL 55004574310 Active Tesfaye Owusu Active ZITHROMAX 250 MG TAB 2 po today, then 1 po q days 2-5 AZITHROMYCIN 19989121977 No Longer Active Tesfaye Sherman MD Acti ve BACTRIM DS 800-160 MG TAB 1 tab by mouth twice daily 2 TRIMETHOPRIM-SULFAMETHOXAZOLE 95568341577 No Longer Active Tesfaye Sherman MD Active PRELIEF 340 (65-50) MG (CA-P) ORAL TABS CALCIUM GLYCEROPHOSPHATE 12734644126 Active Tesfaye Sherman MD Active [facility] NIACIN FLUSH FREE 400-100 MG CAPS 1 daily NIACIN-INOSITOL 40969383104 Active Kayla Cooper MD Active DIFLUCAN 150 MG TABS 1 qd FLUCONAZOLE 31554 035882 No Longer Active Kayla Cooper MD Active FLUTICASONE PROPIONATE 50 MCG/ACT SUSP 1 spray each nostril twice daily FLUTICASONE PROPIONATE 39775406894 Active Tesfaye armenta MD Active LOVASTATIN 20 MG TABS Take 1 tablet by mouth daily LOVASTATIN 85603686653 No Longer Active Tesfaye Sherman MD Active MELOXICAM 7.5 MG TABS 1 tablet by mouth daily M ELOXICAM 71173279374 No Longer Active Tesfaye Sherman MD Active GABAPENTIN 300 MG CAPS Take two tablets by mouth every evening GABAPENTIN 25724912660 No Longer Active Edith Burch MD Active TRIMETHOPRIM 100 MG TABS 1/2 qd TRIMETHOPRIM 8187019 3001 Active Kayla Cooper MD Active OXYCODONE-ACETAMINOPHEN 5-325 MG TABS Take one tablet by mouth every 6 hours as needed. Max 12 tabs/day as needed OXYCODONE-ACETAMINOP HEN 09351673853 Active Tesfaye Sherman MD Active CYMBALTA 60 MG CPEP Take 1 tablet by mouth daily D ULOXETINE HCL 71091839740 Active Kayla Cooper MD Active CLONAZEPAM 0.5 MG TABS Take one tablet in the morning and 1.5 table t at 7pm CLONAZEPAM 83238559558 Active Kayla Cooper MD Active CETIRIZINE HCL 5 MG TABS Take 1 tablet by mouth daily CETIRIZINE HCL 17302353451 Active Kayla Cooper MD Active BACLOFEN 10 MG TABS Take one tablet by mouth three times a day BACLOFEN 67591848467 Active Kayla Cooper MD Active GABAPENTIN 300 MG CAPS Take two tablets by mouth every evening GABAPENTIN 300 MG CAPS 042427 GABAPENTIN Inactive MELOXICAM 7.5 MG TABS 1 tablet by mouth daily MELOXICAM 7.5 MG TABS 389672 MELOXICAM Inactive LOVASTATIN 20 MG TABS Take 1 tablet by mouth daily 201 02/12/20 LOVASTATIN 20 MG TABS 065248 LOVASTATIN Inactive DIFLUCAN 150 MG TABS 1 qd DIFLUCAN 150 MG T ABS 727768 FLUCONAZOLE Inactive VITAMIN D3 2000 UNIT TABS 1 daily, for vitamin D deficiency 2014 VITAMIN D3 2000 UNIT TABS CHOLECALCIFEROL Inacti ve BACTRIM DS 800-160 MG TAB 1 tab by mouth twice daily 2 BACTRIM DS 800-160 MG TAB TRIMETHOPRIM-SULFAMETHOXAZOLE Inac tive ZITHROMAX 250 MG TAB 2 po today, then 1 po q days 2-5 ZITHROMAX 250 MG TAB 2796537 AZITHROMYCIN Inactive Advance Directives Directive Description Start [...] Panel - Chemistry sodium, serum 138 mmol/L 471-834 0619/10/20 potassium, serum 4.5 mmol/L 3.5-5.2 chloride, serum [...] 0.90 mg/dL 0.00-1.00 cholesterol, serum 237 mg/dL 559-519 7523/10/20 triglyceride, serum, fasting 71 mg/dL 30-200 HDL [...] Panel - Chemistry cholesterol, serum 221 mg/dL 429-494 6022/01/23 triglyceride, serum, fasting 81 mg/dL 30-200 HDL [...] negative Encounters Code Encounter Date Provider Facility CPT-89722 Level 4 Est. Patient 13:50:45 CDT Tesfaye pearson MD [facility] CPT-70489 Level 3 Est. Patient 10:16:10 CDT Tesfaye pearson MD [facility] CPT-17855 Level 3 Est. Patient 16:36:[address] [facility] CPT-32566 Level 4 Est. 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 CPT-09210 Level 4 Est. Patient 11:02:24 LOCK PLATER Tesfaye pearson MD [facility] CPT-33651 Level 3 Est. Patient 20:21:43 LOCK PLATER Kayla jameson MD [facility] CPT-52699 Level 3 Est. Patient 13:27:28 LOCK PLATER Kayla jameson MD [facility] CPT-92841 Level 4 Est. Patient 15:57:17 LOCK PLATER Tesfaye pearson MD [facility] CPT-92211 Level 3 New Patient 13:25:47 CDT Tesfaye kidd MD [facility] CPT-01655 Level 3 New Patient 17:22:21 CDT J John angel MD [facility] Procedures Code Procedure Name Date Entry Date Standard Desc ription CPT-J3420 Vitamin B12 1000mcg (Cyanocobalamin) 08:57:15 CDT CPT-37611 Abx/Therapy Injection 08:57:15 CDT CPT-J3420 Vitamin B12 1000mcg (Cyanocobalamin) 10:59:03 CDT CPT-67855 Abx/Therapy Injection 10:59:03 CDT CPT-J3420 Vitamin B12 1000mcg (Cyanocobalamin) 15:05:39 CDT CPT-08361 Abx/Therapy Injection 15:05:39 CDT CPT-J3420 Vitamin B12 1000mcg (Cyanocobalamin) 13:50:45 CDT CPT-J3420 Vitamin B12 1000mcg (Cyanocobalamin) 08:48:55 CDT CPT-26600 Abx/Therapy Injection 08:48:55 CDT CPT-J3420 Vitamin B12 1000mcg (Cyanocobalamin) 09:14:54 CDT CPT-32062 Abx/Therapy Injection 09:14:54 CDT CPT-J3420 Vitamin B12 1000mcg (Cyanocobalamin) 09:06:06 CDT CPT-51199 Abx/Therapy Injection 09:06:06 CDT CPT-J3420 Vitamin B12 1000mcg (Cyanocobalamin) 09:49:14 CDT CPT-06605 Abx/Therapy Injection 09:49:14 CDT CPT-J3420 Vitamin B12 1000mcg (Cyanocobalamin) 09:10:30 LOCK PLATER CPT-57171 Abx/Therapy Injection 09:10:30 LOCK PLATER CPT-J3420 Vitamin B12 1000mcg (Cyanocobalamin) 09:11:07 LOCK PLATER CPT-67100 Abx/Therapy Injection 09:11:07 LOCK PLATER CPT-J3420 Vitamin B12 1000mcg (Cyanocobalamin) 09:57:03 LOCK PLATER CPT-98556 Abx/Therapy Injection 09:57:03 LOCK PLATER CPT-J3420 Vitamin B12 1000mcg (Cyanocobalamin) 09:23:21 LOCK PLATER CPT-45033 Abx/Therapy Injection 09:23:21 LOCK PLATER CPT-71713 Urine Dip (Floor Use Only) 20:21:44 LOCK PLATER 201 02/12/11 CPT-71011 UA Dip Auto (Floor Use Only) 10:04:39 LOCK PLATER 2 CPT-76849 Urine Dip (Floor Use Only) 13:27:28 LOCK PLATER 201 02/12/01 CPT-51480 Bladder Scan 13:27:28 LOCK PLATER CPT-75252 Abd single AP View 14:30:51 LOCK PLATER CPT-OV Office Visit 10:15:43 CDT CPT-32577 Urine Dip (Floor Use Only) 17:22:21 CDT 201 02/09/02 CPT-46605 Bladder Scan 17:22:21 CDT
--- OUTSIDE RECORDS SUMMARY | 2020-05-05 12:21 | XMS REPORT | Clinical Summary ---
Author Author Talon, Jeri Wood Organization [facility] Address Unknown Phone Unavailable Allergies, Adverse Reactions, [...] daily, for vitamin D deficiency 2014 CHOLECALCIFEROL 30586177854 No Longer Active Tesfaye Sherman MD Active TIZANIDINE HCL 2 MG TABS take 1-2 tablet by mouth at bedtime at 9pm PRN TIZANIDINE HCL 14629503352 Active Tesfaye Owusu Active ZITHROMAX 250 MG TAB 2 po today, then 1 po q days 2-5 AZITHROMYCIN 80403464448 No Longer Active Tesfaye Sherman MD Acti ve BACTRIM DS 800-160 MG TAB 1 tab by mouth twice daily 2 TRIMETHOPRIM-SULFAMETHOXAZOLE 78130567263 No Longer Active Tesfaye Sherman MD Active PRELIEF 340 (65-50) MG (CA-P) ORAL TABS CALCIUM GLYCEROPHOSPHATE 05781250732 Active Tesfaye Sherman MD Active [facility] NIACIN FLUSH FREE 400-100 MG CAPS 1 daily NIACIN-INOSITOL 93690149185 Active Kayla Cooper MD Active DIFLUCAN 150 MG TABS 1 qd FLUCONAZOLE 55561 927244 No Longer Active Kayla Cooper MD Active FLUTICASONE PROPIONATE 50 MCG/ACT SUSP 1 spray each nostril twice daily FLUTICASONE PROPIONATE 17977275876 Active Tesfaye armenta MD Active LOVASTATIN 20 MG TABS Take 1 tablet by mouth daily LOVASTATIN 69440034333 No Longer Active Tesfaye Sherman MD Active MELOXICAM 7.5 MG TABS 1 tablet by mouth daily M ELOXICAM 15652473675 No Longer Active Tesfaye Sherman MD Active GABAPENTIN 300 MG CAPS Take two tablets by mouth every evening GABAPENTIN 99761046303 No Longer Active Edith Burch MD Active TRIMETHOPRIM 100 MG TABS 1/2 qd TRIMETHOPRIM 1883935 3001 Active Kayla Cooper MD Active OXYCODONE-ACETAMINOPHEN 5-325 MG TABS Take one tablet by mouth every 6 hours as needed. Max 12 tabs/day as needed OXYCODONE-ACETAMINOP HEN 55513433391 Active Tesfaye Sherman MD Active CYMBALTA 60 MG CPEP Take 1 tablet by mouth daily D ULOXETINE HCL 69290767030 Active Kayla Cooper MD Active CLONAZEPAM 0.5 MG TABS Take one tablet in the morning and 1.5 table t at 7pm CLONAZEPAM 85612588653 Active Kayla Cooper MD Active CETIRIZINE HCL 5 MG TABS Take 1 tablet by mouth daily CETIRIZINE HCL 95152740973 Active Kayla Cooper MD Active BACLOFEN 10 MG TABS Take one tablet by mouth three times a day BACLOFEN 16106233687 Active Kayla Cooper MD Active GABAPENTIN 300 MG CAPS Take two tablets by mouth every evening GABAPENTIN 300 MG CAPS 329888 GABAPENTIN Inactive MELOXICAM 7.5 MG TABS 1 tablet by mouth daily MELOXICAM 7.5 MG TABS 641460 MELOXICAM Inactive LOVASTATIN 20 MG TABS Take 1 tablet by mouth daily 201 02/12/20 LOVASTATIN 20 MG TABS 827406 LOVASTATIN Inactive DIFLUCAN 150 MG TABS 1 qd DIFLUCAN 150 MG T ABS 648741 FLUCONAZOLE Inactive VITAMIN D3 2000 UNIT TABS 1 daily, for vitamin D deficiency 2014 VITAMIN D3 2000 UNIT TABS CHOLECALCIFEROL Inacti ve BACTRIM DS 800-160 MG TAB 1 tab by mouth twice daily 2 BACTRIM DS 800-160 MG TAB TRIMETHOPRIM-SULFAMETHOXAZOLE Inac tive ZITHROMAX 250 MG TAB 2 po today, then 1 po q days 2-5 ZITHROMAX 250 MG TAB 1199050 AZITHROMYCIN Inactive Advance Directives Directive Description Start [...] Panel - Chemistry sodium, serum 138 mmol/L 023-753 6757/10/20 potassium, serum 4.5 mmol/L 3.5-5.2 chloride, serum [...] 0.90 mg/dL 0.00-1.00 cholesterol, serum 237 mg/dL 320-601 8413/10/20 triglyceride, serum, fasting 71 mg/dL 30-200 HDL [...] Panel - Chemistry cholesterol, serum 221 mg/dL 760-045 1331/01/23 triglyceride, serum, fasting 81 mg/dL 30-200 HDL cholesterol, serum 55 mg/dL 32-96 LDL cholesterol, serum 150 mg/dL 0-130 Lab Report: UADIP W/MICRO, AUTO - Chemis try RBC, urine, dipstick Trace Negative protein, total urine random Negative mg/dL Negative RBC, urine, dipstick Negative Negative protein, total urine random Negative mg/dL Negative Lab Report: UADIP W/MICRO, AUTO - Urinal ysis urine color Yellow Colorless;Lightyellow;St raw;Yellow appearance, urine Clear Clear urobilinogen, urine, semiquantitative (dipstick) 0.2 Normal leukocyte esterase, urine, by dipstick Negative Negative nitrite, urine, semiquantitative Negative Neg ative glucose, urine, semiquantitative Negative Neg ative urine color Yellow Colorless;Lightyellow;St raw;Yellow ketones, urine, by test strip Negative Negati ve bilirubin, urine Negative Negative specific gravity, urine 1.010 1.000-1.030 ketones, urine, by test strip Negative Negati ve bilirubin, urine Negative Negative urobilinogen, urine, semiquantitative (dipstick) 0.2 Normal leukocyte esterase, urine, by dipstick Negative Negative nitrite, urine, semiquantitative Negative Neg ative appearance, urine Clear Clear specific gravity, urine 1.010 1.000-1.030 pH, urine, semiquantitative 6.5 5.0-8.5 pH, urine, semiquantitative 8.0 5.0-8.5 glucose, urine, semiquantitative Negative Neg ative Office Visit: 1 month recheck - Chemistr [...] negative Office Visit: Frequent UTI - Chemistry RBC, urine, dipstick negative protein, total urine random negative mg/dL Office Visit: Frequent UTI - Urinalysis protein, urine, semiquantitative (dipstick) negative urobilinogen, urine, semiquantitative (dipstick) 0.2 nitrite, urine, semiquantitative negative leukocyte esterase, urine, by dipstick negative appearance, urine clear ketones, urine, by test strip negative bilirubin, urine negative glucose, urine, semiquantitative negative pH, urine, semiquantitative 5 specific gravity, urine 1.000 urinalysis, routine Clean Catch urine color yellow Office Visit: UTI - [...] negative Encounters Code Encounter Date Provider Facility CPT-17244 Level 4 Est. Patient 13:50:45 CDT Tesfaye pearson MD [facility] CPT-68340 Level 3 Est. Patient 10:16:10 CDT Tesfaye pearson MD [facility] CPT-18022 Level 3 Est. 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 Patient 16:00:14 ASBESTOS SIDING INSTALLER Tesfaye pearson MD [facility]-24377 Level 4 Est. Patient 11:02:24 ASBESTOS SIDING INSTALLER Tesfaye pearson MD [facility] CPT-00916 Level 3 Est. Patient 20:21:43 ASBESTOS SIDING INSTALLER Kayla jameson MD [facility]-23406 Level 3 Est. Patient 13:27:28 ASBESTOS SIDING INSTALLER Kayla jameson MD [facility]-48527 Level 4 Est. Patient 15:57:17 ASBESTOS SIDING INSTALLER Tesfaye pearson MD [facility] CPT-52707 Level 3 New Patient 13:25:47 CDT Tesfaye kidd MD [facility] CPT-27088 Level 3 New Patient 17:22:21 CDT J John angel MD [facility] Procedures Code Procedure Name Date Entry Date Standard Desc ription CPT-J3420 Vitamin B12 1000mcg (Cyanocobalamin) 15:05:39 CDT CPT-76089 Abx/Therapy Injection 15:05:39 CDT CPT-J3420 Vitamin B12 1000mcg (Cyanocobalamin) 13:50:45 CDT CPT-J3420 Vitamin B12 1000mcg (Cyanocobalamin) 08:48:55 CDT CPT-55019 Abx/Therapy Injection 08:48:55 CDT CPT-J3420 Vitamin B12 1000mcg (Cyanocobalamin) 09:14:54 CDT CPT-74085 Abx/Therapy Injection 09:14:54 CDT CPT-J3420 Vitamin B12 1000mcg (Cyanocobalamin) 09:06:06 CDT CPT-04673 Abx/Therapy Injection 09:06:06 CDT CPT-J3420 Vitamin B12 1000mcg (Cyanocobalamin) 09:49:14 CDT CPT-18635 Abx/Therapy Injection 09:49:14 CDT CPT-J3420 Vitamin B12 1000mcg (Cyanocobalamin) 09:10:30 ASBESTOS SIDING INSTALLER CPT-33519 Abx/Therapy Injection 09:10:30 ASBESTOS SIDING INSTALLER CPT-J3420 Vitamin B12 1000mcg (Cyanocobalamin) 09:11:07 ASBESTOS SIDING INSTALLER CPT-57004 Abx/Therapy Injection 09:11:07 ASBESTOS SIDING INSTALLER CPT-J3420 Vitamin B12 1000mcg (Cyanocobalamin) 09:57:03 ASBESTOS SIDING INSTALLER CPT-63565 Abx/Therapy Injection 09:57:03 ASBESTOS SIDING INSTALLER CPT-J3420 Vitamin B12 1000mcg (Cyanocobalamin) 09:23:21 ASBESTOS SIDING INSTALLER CPT-54819 Abx/Therapy Injection 09:23:21 ASBESTOS SIDING INSTALLER CPT-32253 Urine Dip (Floor Use Only) 20:21:44 ASBESTOS SIDING INSTALLER 201 02/12/11 CPT-78573 UA Dip Auto (Floor Use Only) 10:04:39 ASBESTOS SIDING INSTALLER 2 CPT-88060 Urine Dip (Floor Use Only) 13:27:28 ASBESTOS SIDING INSTALLER 201 02/12/01 CPT-21835 Bladder Scan 13:27:28 ASBESTOS SIDING INSTALLER CPT-32668 Abd single AP View 14:30:51 ASBESTOS SIDING INSTALLER CPT-OV Office Visit 10:15:43 CDT CPT-12066 Urine Dip (Floor Use Only) 17:22:21 CDT 201 02/09/02 CPT-41214 Bladder Scan 17:22:21 CDT
--- OUTSIDE RECORDS SUMMARY | 2020-05-05 12:21 | XMS REPORT | Clinical Summary ---
Author Author Talon, Jeri Wood Organization [facility] Address Unknown Phone Unavailable Allergies, Adverse [...] daily, for vitamin D deficiency 2014 CHOLECALCIFEROL 43589049546 No Longer Active Tesfaye Sherman MD Active TIZANIDINE HCL 2 MG TABS take 1-2 tablet by mouth at bedtime at 9pm PRN TIZANIDINE HCL 78707133476 Active Tesfaye Owusu Active ZITHROMAX 250 MG TAB 2 po today, then 1 po q days 2-5 AZITHROMYCIN 48563848254 No Longer Active Tesfaye Sherman MD Acti ve BACTRIM DS 800-160 MG TAB 1 tab by mouth twice daily 2 TRIMETHOPRIM-SULFAMETHOXAZOLE 97456734473 No Longer Active Tesfaye Sherman MD Active PRELIEF 340 (65-50) MG (CA-P) ORAL TABS CALCIUM GLYCEROPHOSPHATE 55319176647 Active Tesfaye Sherman MD Active [facility] NIACIN FLUSH FREE 400-100 MG CAPS 1 daily NIACIN-INOSITOL 27235344255 Active Kayla Cooper MD Active DIFLUCAN 150 MG TABS 1 qd FLUCONAZOLE 35460 251380 No Longer Active Kayla Cooper MD Active FLUTICASONE PROPIONATE 50 MCG/ACT SUSP 1 spray each nostril twice daily FLUTICASONE PROPIONATE 73880257281 Active Tesfaye armenta MD Active LOVASTATIN 20 MG TABS Take 1 tablet by mouth daily LOVASTATIN 08267453318 No Longer Active Tesfaye Sherman MD Active MELOXICAM 7.5 MG TABS 1 tablet by mouth daily M ELOXICAM 58825452346 No Longer Active Tesfaye Sherman MD Active GABAPENTIN 300 MG CAPS Take two tablets by mouth every evening GABAPENTIN 02948039554 No Longer Active Edith Burch MD Active TRIMETHOPRIM 100 MG TABS 1/2 qd TRIMETHOPRIM 1568571 3001 Active Kayla Cooper MD Active OXYCODONE-ACETAMINOPHEN 5-325 MG TABS Take one tablet by mouth every 6 hours as needed. Max 12 tabs/day as needed OXYCODONE-ACETAMINOP HEN 81962306643 Active Tesfaye Sherman MD Active CYMBALTA 60 MG CPEP Take 1 tablet by mouth daily D ULOXETINE HCL 34690496496 Active Kayla Cooper MD Active CLONAZEPAM 0.5 MG TABS Take one tablet in the morning and 1.5 table t at 7pm CLONAZEPAM 36327581918 Active Kayla Cooper MD Active CETIRIZINE HCL 5 MG TABS Take 1 tablet by mouth daily CETIRIZINE HCL 56073373787 Active Kayla Cooper MD Active BACLOFEN 10 MG TABS Take one tablet by mouth three times a day BACLOFEN 93239576346 Active Kayla Cooper MD Active GABAPENTIN 300 MG CAPS Take two tablets by mouth every evening GABAPENTIN 300 MG CAPS 364477 GABAPENTIN Inactive MELOXICAM 7.5 MG TABS 1 tablet by mouth daily MELOXICAM 7.5 MG TABS 360786 MELOXICAM Inactive LOVASTATIN 20 MG TABS Take 1 tablet by mouth daily 201 02/12/20 LOVASTATIN 20 MG TABS 643537 LOVASTATIN Inactive DIFLUCAN 150 MG TABS 1 qd DIFLUCAN 150 MG T ABS 276272 FLUCONAZOLE Inactive VITAMIN D3 2000 UNIT TABS 1 daily, for vitamin D deficiency 2014 VITAMIN D3 2000 UNIT TABS CHOLECALCIFEROL Inacti ve BACTRIM DS 800-160 MG TAB 1 tab by mouth twice daily 2 BACTRIM DS 800-160 MG TAB TRIMETHOPRIM-SULFAMETHOXAZOLE Inac tive ZITHROMAX 250 MG TAB 2 po today, then 1 po q days 2-5 ZITHROMAX 250 MG TAB 3989808 AZITHROMYCIN Inactive Advance Directives Directive Description Start [...] Panel - Chemistry sodium, serum 138 mmol/L 932-100 1251/10/20 potassium, serum 4.5 mmol/L 3.5-5.2 chloride, serum [...] 0.90 mg/dL 0.00-1.00 cholesterol, serum 237 mg/dL 143-085 6186/10/20 triglyceride, serum, fasting 71 mg/dL 30-200 HDL [...] Panel - Chemistry cholesterol, serum 221 mg/dL 537-496 4600/01/23 triglyceride, serum, fasting 81 mg/dL 30-200 HDL [...] negative Encounters Code Encounter Date Provider Facility CPT-04840 Level 4 Est. Patient 13:50:45 CDT Tesfaey pearson MD [facility] CPT-41741 Level 3 Est. Patient 10:16:10 CDT Tesfaye pearson MD [facility] CPT-90677 Level 3 Est. Patient 16:36:07 CODY jameson MD [facility] CPT-15826 Level 4 Est. Patient 16:00:14 LEAD INGOT MOLDER Tesfaye pearson MD [facility] CPT-36243 Level 4 Est. Patient 11:02:24 LEAD INGOT MOLDER Tesfaye pearson MD [facility] CPT-44393 Level 3 Est. Patient 20:21:43 LEAD INGOT MOLDER Kayla jameson MD [facility] CPT-87620 Level 3 Est. Patient 13:27:28 LEAD INGOT MOLDER Kayla jameson MD [facility] CPT-19813 Level 4 Est. Patient 15:57:17 LEAD INGOT MOLDER Tesfaye pearson MD [facility] CPT-25378 Level 3 New Patient 13:25:47 CDT Tesfaye kidd MD [facility] CPT-10902 Level 3 New Patient 17:22:21 CDT J John angel MD [facility] Procedures Code Procedure Name Date Entry Date Standard Desc ription CPT-J3420 Vitamin B12 1000mcg (Cyanocobalamin) 08:41:26 CDT CPT-73366 Abx/Therapy Injection 08:41:26 CDT CPT-J3420 Vitamin B12 1000mcg (Cyanocobalamin) 08:57:15 CDT CPT-24643 Abx/Therapy Injection 08:57:15 CDT CPT-J3420 Vitamin B12 1000mcg (Cyanocobalamin) 10:59:03 CDT CPT-36563 Abx/Therapy Injection 10:59:03 CDT CPT-J3420 Vitamin B12 1000mcg (Cyanocobalamin) 15:05:39 CDT CPT-98228 Abx/Therapy Injection 15:05:39 CDT CPT-J3420 Vitamin B12 1000mcg (Cyanocobalamin) 13:50:45 CDT CPT-J3420 Vitamin B12 1000mcg (Cyanocobalamin) 08:48:55 CDT CPT-40662 Abx/Therapy Injection 08:48:55 CDT CPT-J3420 Vitamin B12 1000mcg (Cyanocobalamin) 09:14:54 CDT CPT-87503 Abx/Therapy Injection 09:14:54 CDT CPT-J3420 Vitamin B12 1000mcg (Cyanocobalamin) 09:06:06 CDT CPT-61864 Abx/Therapy Injection 09:06:06 CDT CPT-J3420 Vitamin B12 1000mcg (Cyanocobalamin) 09:49:14 CDT CPT-35673 Abx/Therapy Injection 09:49:14 CDT CPT-J3420 Vitamin B12 1000mcg (Cyanocobalamin) 09:10:30 LEAD INGOT MOLDER CPT-56656 Abx/Therapy Injection 09:10:30 LEAD INGOT MOLDER CPT-J3420 Vitamin B12 1000mcg (Cyanocobalamin) 09:11:07 LEAD INGOT MOLDER CPT-43514 Abx/Therapy Injection 09:11:07 LEAD INGOT MOLDER CPT-J3420 Vitamin B12 1000mcg (Cyanocobalamin) 09:57:03 LEAD INGOT MOLDER CPT-89424 Abx/Therapy Injection 09:57:03 LEAD INGOT MOLDER CPT-J3420 Vitamin B12 1000mcg (Cyanocobalamin) 09:23:21 LEAD INGOT MOLDER CPT-97267 Abx/Therapy Injection 09:23:21 LEAD INGOT MOLDER CPT-99908 Urine Dip (Floor Use Only) 20:21:44 LEAD INGOT MOLDER 201 02/12/11 CPT-83996 UA Dip Auto (Floor Use Only) 10:04:39 LEAD INGOT MOLDER 2 CPT-97695 Urine Dip (Floor Use Only) 13:27:28 LEAD INGOT MOLDER 201 02/12/01 CPT-19708 Bladder Scan 13:27:28 LEAD INGOT MOLDER CPT-05414 Abd single AP View 14:30:51 LEAD INGOT MOLDER CPT-OV Office Visit 10:15:43 CDT CPT-93797 Urine Dip (Floor Use Only) 17:22:21 CDT 201 02/09/02 CPT-94858 Bladder Scan 17:22:21 CDT
--- OUTSIDE RECORDS SUMMARY | 2020-05-05 12:22 | XMS REPORT | Clinical Summary ---
Author Author Talon, Jeri Wood Organization [facility] Address Unknown Phone Unavailable Allergies, Adverse Reactions, [...] TABS 1 tab po daily MAGNESI UM 89154690819 Active Chelsea Barba APRN Active SUDAFED 24 HOUR 240 MG ORAL [id number] 1 tab po daily PSEUDOEPHEDRINE HCL 73060638576 Active Chelsea Barba APRN A ctive CETIRIZINE HCL 5 MG TABS Take 1 tablet by mouth daily CETIRIZINE HCL 07723760130 No Longer Active Chelsea Barba APRN Acti ve TRIMETHOPRIM 100 MG TABS 1/2 qd TRIMETHOPRIM 66274892445 No Longer Active Chelsea Barba APRN Active PRAMIPEXOLE DIHYDROCHLORIDE 0.125 MG ORAL TABS take 1 tablet po qhs for restless leg syndrome. PRAMIPEXOLE DIHYDROCHLORIDE 42653179686 Acti ve Tesfaye Sherman MD Active MIRTAZAPINE 15 MG ORAL TABS 1/2 tab by mouth at bedtime. MIRTAZAPINE 67612249014 Active Tesfaye Sherman MD Active BACTRIM DS 800-160 MG TAB 1 tab by mouth twice daily 2 TRIMETHOPRIM-SULFAMETHOXAZOLE 91989178356 No Longer Active Tesfaye Sherman MD Active BACTRIM DS 800-160 MG TAB 1 tab by mouth twice daily X 10 DAYS 2 TRIMETHOPRIM-SULFAMETHOXAZOLE 59013457247 No Longer Active Umer Sherman MD Active AMOXICILLIN 500 MG CAPS 1 cap by mouth three times a day AMOXICILLIN 89269837374 No Longer Active Adriana Arredondo Active MECLIZINE HCL 25 MG TAB one tab po qday prn dizziness MECLIZINE HCL 60177384055 Active Tesfaye Sherman MD Active B-12 1000 MCG ORAL LOZG 1 tab po daily CYANOCOBAL STANTON 96000473442 Active Tesfaye Sherman MD Active VITAMIN D3 2000 UNIT TABS 1 daily, for vitamin D deficiency 2014 CHOLECALCIFEROL 81281295142 No Longer Active Tesfaye Sherman MD Active TIZANIDINE HCL 2 MG TABS take 1-2 tablet by mouth at bedtime at 9pm PRN TIZANIDINE HCL 64511120792 Active Tesfaye Owusu Active ZITHROMAX 250 MG TAB 2 po today, then 1 po q days 2-5 AZITHROMYCIN 64724243916 No Longer Active Tesfaye Sherman MD Acti ve BACTRIM DS 800-160 MG TAB 1 tab by mouth twice daily 2 TRIMETHOPRIM-SULFAMETHOXAZOLE 26995687171 No Longer Active Tesfaye Sherman MD Active PRELIEF 340 (65-50) MG (CA-P) ORAL TABS CALCIUM GLYCEROPHOSPHATE 65320857955 Active Tesfaye Sherman MD Active [facility] NIACIN FLUSH FREE 400-100 MG CAPS 1 daily NIACIN-INOSITOL 57145516369 Active Kayla Cooper MD Active DIFLUCAN 150 MG TABS 1 qd FLUCONAZOLE 19173 169529 No Longer Active Kayla Cooper MD Active FLUTICASONE PROPIONATE 50 MCG/ACT SUSP 1 spray each nostril twice daily FLUTICASONE PROPIONATE 44869691259 Active Tesfaye armenta MD Active LOVASTATIN 20 MG TABS Take 1 tablet by mouth daily LOVASTATIN 56613761687 No Longer Active Tesfaye Sherman MD Active MELOXICAM 7.5 MG TABS 1 tablet by mouth daily M ELOXICAM 13140389485 No Longer Active Tesfaye Sherman MD Active GABAPENTIN 300 MG CAPS Take two tablets by mouth every evening GABAPENTIN 22870856300 No Longer Active Edith Burch MD Active OXYCODONE-ACETAMINOPHEN 5-325 MG TABS Take one tablet by mouth every 6 hours as needed. Max 12 tabs/day as needed OXYCODONE-ACETAMINOP HEN 72234584270 Active Tesfaye Sherman MD Active CYMBALTA 60 MG CPEP Take 1 tablet by mouth daily D ULOXETINE HCL 28412137397 Active Kayla Cooper MD Active CLONAZEPAM 0.5 MG TABS Take one tablet in the morning and 1.5 table t at 7pm CLONAZEPAM 61604397637 Active Kayla Cooper MD Active BACLOFEN 10 MG TABS Take one tablet by mouth three times a day BACLOFEN 96152738758 Active Kayla Cooper MD Active GABAPENTIN 300 MG CAPS Take two tablets by mouth every evening GABAPENTIN 300 MG CAPS 651063 GABAPENTIN Inactive MELOXICAM 7.5 MG TABS 1 tablet by mouth daily MELOXICAM 7.5 MG TABS 574055 MELOXICAM Inactive LOVASTATIN 20 MG TABS Take 1 tablet by mouth daily 201 02/12/20 LOVASTATIN 20 MG TABS 208201 LOVASTATIN Inactive DIFLUCAN 150 MG TABS 1 qd DIFLUCAN 150 MG T ABS 444815 FLUCONAZOLE Inactive VITAMIN D3 2000 UNIT TABS 1 daily, for vitamin D deficiency 2014 VITAMIN D3 2000 UNIT TABS CHOLECALCIFEROL Inacti ve AMOXICILLIN 500 MG CAPS 1 cap by mouth three times a day AMOXICILLIN 500 MG CAPS 946862 AMOXICILLIN Inactive BACTRIM DS 800-160 MG TAB 1 tab by mouth twice daily X 10 DAYS 2 BACTRIM DS 800-160 MG TAB 464776 TRIMETHOPRIM-SULFAMETH OXAZOLE Inactive TRIMETHOPRIM 100 MG TABS 1/2 qd TRIMETHOPRI M 100 MG TABS 972120 TRIMETHOPRIM Inactive CETIRIZINE HCL 5 MG TABS Take 1 tablet by mouth daily CETIRIZINE HCL 5 MG TABS 8240526 CETIRIZINE HCL Inactive BACTRIM DS 800-160 MG TAB 1 tab by mouth twice daily 2 BACTRIM DS 800-160 MG TAB 453575 TRIMETHOPRIM-SULFAMETHOXAZOLE Inac tive ZITHROMAX 250 MG TAB 2 po today, then 1 po q days 2-5 ZITHROMAX 250 MG TAB 4256116 AZITHROMYCIN Inactive BACTRIM DS 800-160 MG TAB 1 tab by mouth twice daily 2 BACTRIM DS 800-160 MG TAB 866610 TRIMETHOPRIM-SULFAMETHOXAZOLE Inac tive Advance Directives Directive Description Start Date PERMISSION TO SHARE DISCUSSED WITH PATIENT -- NO DECISION MADE Vital Signs Date Name Value Unit Range Description blood pressure, diastolic - 8462-4 81 mm[Hg] [...] mg/dL Encounters Code Encounter Date Provider Facility CPT-57070 Level 4 Est. Patient 13:12:56 CDT Tesfaye pearson MD [facility] CPT-98058 Level 4 Est. Patient 21:24:55 EQUIPMENT OPERATION INSTRUCTOR Tesfaye pearson MD [facility] CPT-06000 Level 3 Est. Patient 13:45:04 EQUIPMENT OPERATION INSTRUCTOR Tesfaye pearson MD [facility] CPT-47554 Level 4 Est. Patient 13:50:45 CDT Tesfaye pearson MD [facility] CPT-10941 Level 3 Est. Patient 10:16:10 CDT Tesfaye pearson MD [facility] CPT-53762 Level 3 Est. Patient 16:36:07 CODY jameson MD [facility] CPT-33395 Level 4 Est. Patient 16:00:14 EQUIPMENT OPERATION INSTRUCTOR Tesfaye pearson MD [facility] CPT-23622 Level 4 Est. Patient 11:02:24 EQUIPMENT OPERATION INSTRUCTOR Tesfaye pearson MD [facility] CPT-59475 Level 3 Est. Patient 20:21:43 EQUIPMENT OPERATION INSTRUCTOR Kayla jameson MD [facility] CPT-49821 Level 3 Est. Patient 13:27:28 EQUIPMENT OPERATION INSTRUCTOR Kayla jameson MD [facility] CPT-92022 Level 4 Est. Patient 15:57:17 EQUIPMENT OPERATION INSTRUCTOR Tesfaye pearson MD [facility] CPT-93910 Level 3 New Patient 13:25:47 CDT Tesfaye kidd MD [facility] CPT-73277 Level 3 New Patient 17:22:21 CDT Kayla angel MD [facility] Procedures Code Procedure Name Date Entry Date Standard Desc ription CPT-G0438 Initial Annual Wellness Exam 11:23:17 CD T CPT-J2930 Solu Medrol 125 mg (Methyl Prednisolone Sodium Succinate) 17:29:12 EQUIPMENT OPERATION INSTRUCTOR CPT-95831 Abx/Therapy Injection 17:29:11 EQUIPMENT OPERATION INSTRUCTOR CPT-J2930 Solu Medrol 125 mg (Methyl Prednisolone Sodium Succinate) 12:34:38 EQUIPMENT OPERATION INSTRUCTOR CPT-J3420 Vitamin B12 1000mcg (Cyanocobalamin) 09:12:55 CDT CPT-J3420 Vitamin B12 1000mcg (Cyanocobalamin) 16:28:06 EQUIPMENT OPERATION INSTRUCTOR CPT-09569 Venipuncture Draw Fee 08:39:53 CDT CPT-J3420 Vitamin B12 1000mcg (Cyanocobalamin) 08:46:22 CDT CPT-97777 Abx/Therapy Injection 08:46:22 CDT CPT-J3420 Vitamin B12 1000mcg (Cyanocobalamin) 08:41:26 CDT CPT-75162 Abx/Therapy Injection 08:41:26 CDT CPT-J3420 Vitamin B12 1000mcg (Cyanocobalamin) 08:57:15 CDT CPT-36151 Abx/Therapy Injection 08:57:15 CDT CPT-J3420 Vitamin B12 1000mcg (Cyanocobalamin) 10:59:03 CDT CPT-80297 Abx/Therapy Injection 10:59:03 CDT CPT-J3420 Vitamin B12 1000mcg (Cyanocobalamin) 15:05:39 CDT CPT-59346 Abx/Therapy Injection 15:05:39 CDT CPT-J3420 Vitamin B12 1000mcg (Cyanocobalamin) 13:50:45 CDT CPT-J3420 Vitamin B12 1000mcg (Cyanocobalamin) 08:48:55 CDT CPT-86362 Abx/Therapy Injection 08:48:55 CDT CPT-J3420 Vitamin B12 1000mcg (Cyanocobalamin) 09:14:54 CDT CPT-16208 Abx/Therapy Injection 09:14:54 CDT CPT-J3420 Vitamin B12 1000mcg (Cyanocobalamin) 09:06:06 CDT CPT-03114 Abx/Therapy Injection 09:06:06 CDT CPT-J3420 Vitamin B12 1000mcg (Cyanocobalamin) 09:49:14 CDT CPT-54530 Abx/Therapy Injection 09:49:14 CDT CPT-J3420 Vitamin B12 1000mcg (Cyanocobalamin) 09:10:30 EQUIPMENT OPERATION INSTRUCTOR CPT-76072 Abx/Therapy Injection 09:10:30 EQUIPMENT OPERATION INSTRUCTOR CPT-J3420 Vitamin B12 1000mcg (Cyanocobalamin) 09:11:07 EQUIPMENT OPERATION INSTRUCTOR CPT-97146 Abx/Therapy Injection 09:11:07 EQUIPMENT OPERATION INSTRUCTOR CPT-J3420 Vitamin B12 1000mcg (Cyanocobalamin) 09:57:03 EQUIPMENT OPERATION INSTRUCTOR CPT-50002 Abx/Therapy Injection 09:57:03 EQUIPMENT OPERATION INSTRUCTOR CPT-J3420 Vitamin B12 1000mcg (Cyanocobalamin) 09:23:21 EQUIPMENT OPERATION INSTRUCTOR CPT-02000 Abx/Therapy Injection 09:23:21 EQUIPMENT OPERATION INSTRUCTOR CPT-97070 Urine Dip (Floor Use Only) 20:21:44 EQUIPMENT OPERATION INSTRUCTOR 201 02/12/11 CPT-35644 UA Dip Auto (Floor Use Only) 10:04:39 EQUIPMENT OPERATION INSTRUCTOR 2 CPT-23658 Urine Dip (Floor Use Only) 13:27:28 EQUIPMENT OPERATION INSTRUCTOR 201 02/12/01 CPT-04672 Bladder Scan 13:27:28 EQUIPMENT OPERATION INSTRUCTOR CPT-56521 Abd single AP View 14:30:51 EQUIPMENT OPERATION INSTRUCTOR CPT-OV Office Visit 10:15:43 CDT CPT-16824 Urine Dip (Floor Use Only) 17:22:21 CDT 201 02/09/02 CPT-14652 Bladder Scan 17:22:21 CDT
--- OUTSIDE RECORDS SUMMARY | 2020-05-05 12:22 | XMS REPORT | Clinical Summary ---
Author Author Talon, Jeri Wood Organization [employer] Address Unknown Phone Unavailable Allergies, Adverse Reactions, [...] TABS 1 tab po daily MAGNESI UM [id number] Active Chelsea Barba APRN Active SUDAFED 24 HOUR 240 MG ORAL [id number] 1 tab po daily PSEUDOEPHEDRINE HCL 39973187416 Active Chelsea Barba APRN A ctive CETIRIZINE HCL 5 MG TABS Take 1 tablet by mouth daily CETIRIZINE HCL 18968090647 No Longer Active Chelsea Barba APRN Acti ve TRIMETHOPRIM 100 MG TABS 1/2 qd TRIMETHOPRIM 50907769947 No Longer Active Chelsea Barba APRN Active PRAMIPEXOLE DIHYDROCHLORIDE 0.125 MG ORAL TABS take 1 tablet po qhs for restless leg syndrome. PRAMIPEXOLE DIHYDROCHLORIDE 87235571297 Acti ve Tesfaye Sherman MD Active MIRTAZAPINE 15 MG ORAL TABS 1/2 tab by mouth at bedtime. MIRTAZAPINE 82478741302 Active Tesfaye Sherman MD Active BACTRIM DS 800-160 MG TAB 1 tab by mouth twice daily 2 TRIMETHOPRIM-SULFAMETHOXAZOLE 25769182700 No Longer Active Tesfaye Sherman MD Active BACTRIM DS 800-160 MG TAB 1 tab by mouth twice daily X 10 DAYS 2 TRIMETHOPRIM-SULFAMETHOXAZOLE 86039497397 No Longer Active Umer Sherman MD Active AMOXICILLIN 500 MG CAPS 1 cap by mouth three times a day AMOXICILLIN 63731627273 No Longer Active Adriana Arredondo Active MECLIZINE HCL 25 MG TAB one tab po qday prn dizziness MECLIZINE HCL 55364628102 Active Tesfaye Sherman MD Active B-12 1000 MCG ORAL LOZG 1 tab po daily CYANOCOBAL STANTON 66308413562 Active Tesfaye Sherman MD Active VITAMIN D3 2000 UNIT TABS 1 daily, for vitamin D deficiency 2014 CHOLECALCIFEROL 73780247790 No Longer Active Tesfaye Sherman MD Active TIZANIDINE HCL 2 MG TABS take 1-2 tablet by mouth at bedtime at 9pm PRN TIZANIDINE HCL 58429157003 Active Tesfaye Owusu Active ZITHROMAX 250 MG TAB 2 po today, then 1 po q days 2-5 AZITHROMYCIN 46317386714 No Longer Active Tesfaye Sherman MD Acti ve BACTRIM DS 800-160 MG TAB 1 tab by mouth twice daily 2 TRIMETHOPRIM-SULFAMETHOXAZOLE 45153787369 No Longer Active Tesfaye Sherman MD Active PRELIEF 340 (65-50) MG (CA-P) ORAL TABS CALCIUM GLYCEROPHOSPHATE 52512619198 Active Tesfaye Sherman MD Active [facility] NIACIN FLUSH FREE 400-100 MG CAPS 1 daily NIACIN-INOSITOL 80409775087 Active Kayla Cooper MD Active DIFLUCAN 150 MG TABS 1 qd FLUCONAZOLE 82877 499365 No Longer Active Kayla Copoer MD Active FLUTICASONE PROPIONATE 50 MCG/ACT SUSP 1 spray each nostril twice daily FLUTICASONE PROPIONATE 42773622187 Active Tesfaye armenta MD Active LOVASTATIN 20 MG TABS Take 1 tablet by mouth daily LOVASTATIN 65123419379 No Longer Active Tesfaye Sherman MD Active MELOXICAM 7.5 MG TABS 1 tablet by mouth daily M ELOXICAM 98922836394 No Longer Active Tesfaye Sherman MD Active GABAPENTIN 300 MG CAPS Take two tablets by mouth every evening GABAPENTIN 94789597581 No Longer Active dEith Burch MD Active OXYCODONE-ACETAMINOPHEN 5-325 MG TABS Take one tablet by mouth every 6 hours as needed. Max 12 tabs/day as needed OXYCODONE-ACETAMINOP HEN 99030541477 Active Tesfaye Sherman MD Active CYMBALTA 60 MG CPEP Take 1 tablet by mouth daily D ULOXETINE HCL 94490460451 Active Kayla Cooper MD Active CLONAZEPAM 0.5 MG TABS Take one tablet in the morning and 1.5 table t at 7pm CLONAZEPAM 58924347207 Active Kayla Cooper MD Active BACLOFEN 10 MG TABS Take one tablet by mouth three times a day BACLOFEN 00282444898 Active Kayla Cooper MD Active GABAPENTIN 300 MG CAPS Take two tablets by mouth every evening GABAPENTIN 300 MG CAPS 851305 GABAPENTIN Inactive MELOXICAM 7.5 MG TABS 1 tablet by mouth daily MELOXICAM 7.5 MG TABS 415450 MELOXICAM Inactive LOVASTATIN 20 MG TABS Take 1 tablet by mouth daily 201 02/12/20 LOVASTATIN 20 MG TABS 479923 LOVASTATIN Inactive DIFLUCAN 150 MG TABS 1 qd DIFLUCAN 150 MG T ABS 500133 FLUCONAZOLE Inactive VITAMIN D3 2000 UNIT TABS 1 daily, for vitamin D deficiency 2014 VITAMIN D3 2000 UNIT TABS CHOLECALCIFEROL Inacti ve AMOXICILLIN 500 MG CAPS 1 cap by mouth three times a day AMOXICILLIN 500 MG CAPS 619315 AMOXICILLIN Inactive BACTRIM DS 800-160 MG TAB 1 tab by mouth twice daily X 10 DAYS 2 BACTRIM DS 800-160 MG TAB 724995 TRIMETHOPRIM-SULFAMETH OXAZOLE Inactive TRIMETHOPRIM 100 MG TABS 1/2 qd TRIMETHOPRI M 100 MG TABS 261590 TRIMETHOPRIM Inactive CETIRIZINE HCL 5 MG TABS Take 1 tablet by mouth daily CETIRIZINE HCL 5 MG TABS 5381725 CETIRIZINE HCL Inactive BACTRIM DS 800-160 MG TAB 1 tab by mouth twice daily 2 BACTRIM DS 800-160 MG TAB 647325 TRIMETHOPRIM-SULFAMETHOXAZOLE Inac tive ZITHROMAX 250 MG TAB 2 po today, then 1 po q days 2-5 ZITHROMAX 250 MG TAB 3765871 AZITHROMYCIN Inactive BACTRIM DS 800-160 MG TAB 1 tab by mouth twice daily 2 BACTRIM DS 800-160 MG TAB 906865 TRIMETHOPRIM-SULFAMETHOXAZOLE Inac tive Advance Directives Directive Description [...] mg/dL Encounters Code Encounter Date Provider Facility CPT-38117 Level 4 Est. Patient 13:12:56 CDT Tesfaye pearson MD [facility] CPT-11809 Level 4 Est. Patient 21:24:55 ACCOUNTING CLERK Tesfaye pearson MD [facility] CPT-96098 Level 3 Est. Patient 13:45:04 ACCOUNTING CLERK Tesfaye pearson MD [facility] CPT-50437 Level 4 Est. Patient 13:50:45 CDT Tesfaye pearson MD [facility] CPT-66808 Level 3 Est. Patient 10:16:10 CDT Tesfaye pearson MD [facility] CPT-81293 Level 3 Est. Patient 16:36:07 CODY jameson MD [facility] CPT-26833 Level 4 Est. Patient 16:00:14 ACCOUNTING CLERK Tesfaye pearson MD [facility] CPT-54150 Level 4 Est. Patient 11:02:24 ACCOUNTING CLERK Tesfaye pearson MD [facility] CPT-10583 Level 3 Est. Patient 20:21:43 ACCOUNTING CLERK Kayla jameson MD [facility] CPT-60731 Level 3 Est. Patient 13:27:28 ACCOUNTING CLERK Kayla jameson MD [facility] CPT-53501 Level 4 Est. Patient 15:57:17 ACCOUNTING CLERK Tesfaye pearsno MD [facility] CPT-67417 Level 3 New Patient 13:25:47 CDT Tesfaye kidd MD [facility] CPT-60999 Level 3 New Patient 17:22:21 CDT Kayla angel MD [facility] Procedures Code Procedure Name Date Entry Date Standard Desc ription CPT-G0438 Initial Annual Wellness Exam 11:23:17 CD T CPT-J2930 Solu Medrol 125 mg (Methyl Prednisolone Sodium Succinate) 17:29:12 ACCOUNTING CLERK CPT-61009 Abx/Therapy Injection 17:29:11 ACCOUNTING CLERK CPT-J2930 Solu Medrol 125 mg (Methyl Prednisolone Sodium Succinate) 12:34:38 ACCOUNTING CLERK CPT-J3420 Vitamin B12 1000mcg (Cyanocobalamin) 09:12:55 CDT CPT-J3420 Vitamin B12 1000mcg (Cyanocobalamin) 16:28:06 ACCOUNTING CLERK CPT-54729 Venipuncture Draw Fee 08:39:53 CDT CPT-J3420 Vitamin B12 1000mcg (Cyanocobalamin) 08:46:22 CDT CPT-31937 Abx/Therapy Injection 08:46:22 CDT CPT-J3420 Vitamin B12 1000mcg (Cyanocobalamin) 08:41:26 CDT CPT-95178 Abx/Therapy Injection 08:41:26 CDT CPT-J3420 Vitamin B12 1000mcg (Cyanocobalamin) 08:57:15 CDT CPT-04944 Abx/Therapy Injection 08:57:15 CDT CPT-J3420 Vitamin B12 1000mcg (Cyanocobalamin) 10:59:03 CDT CPT-28302 Abx/Therapy Injection 10:59:03 CDT CPT-J3420 Vitamin B12 1000mcg (Cyanocobalamin) 15:05:39 CDT CPT-02973 Abx/Therapy Injection 15:05:39 CDT CPT-J3420 Vitamin B12 1000mcg (Cyanocobalamin) 13:50:45 CDT CPT-J3420 Vitamin B12 1000mcg (Cyanocobalamin) 08:48:55 CDT CPT-58050 Abx/Therapy Injection 08:48:55 CDT CPT-J3420 Vitamin B12 1000mcg (Cyanocobalamin) 09:14:54 CDT CPT-58568 Abx/Therapy Injection 09:14:54 CDT CPT-J3420 Vitamin B12 1000mcg (Cyanocobalamin) 09:06:06 CDT CPT-08385 Abx/Therapy Injection 09:06:06 CDT CPT-J3420 Vitamin B12 1000mcg (Cyanocobalamin) 09:49:14 CDT CPT-64585 Abx/Therapy Injection 09:49:14 CDT CPT-J3420 Vitamin B12 1000mcg (Cyanocobalamin) 09:10:30 ACCOUNTING CLERK CPT-20587 Abx/Therapy Injection 09:10:30 ACCOUNTING CLERK CPT-J3420 Vitamin B12 1000mcg (Cyanocobalamin) 09:11:07 ACCOUNTING CLERK CPT-54055 Abx/Therapy Injection 09:11:07 ACCOUNTING CLERK CPT-J3420 Vitamin B12 1000mcg (Cyanocobalamin) 09:57:03 ACCOUNTING CLERK CPT-67045 Abx/Therapy Injection 09:57:03 ACCOUNTING CLERK CPT-J3420 Vitamin B12 1000mcg (Cyanocobalamin) 09:23:21 ACCOUNTING CLERK CPT-74959 Abx/Therapy Injection 09:23:21 ACCOUNTING CLERK CPT-82908 Urine Dip (Floor Use Only) 20:21:44 ACCOUNTING CLERK 201 02/12/11 CPT-14254 UA Dip Auto (Floor Use Only) 10:04:39 ACCOUNTING CLERK 2 CPT-88586 Urine Dip (Floor Use Only) 13:27:28 ACCOUNTING CLERK 201 02/12/01 CPT-93141 Bladder Scan 13:27:28 ACCOUNTING CLERK CPT-59554 Abd single AP View 14:30:51 ACCOUNTING CLERK CPT-OV Office Visit 10:15:43 CDT CPT-62309 Urine Dip (Floor Use Only) 17:22:21 CDT 201 02/09/02 CPT-06336 Bladder Scan 17:22:21 CDT
--- OUTSIDE RECORDS SUMMARY | 2020-05-05 12:22 | XMS REPORT | Clinical Summary ---
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 Use sparingly OXYCODONE-ACETAMINOPHEN 99027469443 Active Tesfaye Sherman MD Active PREDNISONE 20 MG ORAL TABLET 1 tab twice daily for 3 d ay, then one daily for three days PREDNISONE 14081620946 No Longer Active Tesfaye Sherman MD Active PROAIR HFA 108 (90 BASE) MCG/ACT INHALATION AEROSOL SO LUTION 1 puff every 6 hours as needed ALBUTEROL SULFATE 60846337859 Active [place] nda Raida Active MECLIZINE HCL 25 MG ORAL TABLET one 4 times a day as needed for dizziness MECLIZINE HCL 85391226775 Active Laurence Dominguez Active DIFLUCAN 100 MG ORAL TABLET 1 tablet by mouth daily FLUCONAZOLE 94481564471 Active Laurence Dominguez Active AMOXICILLIN 500 MG ORAL CAPSULE 1 cap by mouth three times a day AMOXICILLIN 70004503920 No Longer Active Laurence Dominguez Acti ve VENLAFAXINE HCL 75 MG ORAL TABLET 1 am 1/2 at noon VENLAFAXINE HCL 77614926945 Active Tesfaye Sherman MD Active DIFLUCAN 100 MG ORAL TABLET 1 tablet by mouth daily 20 19/08/26 FLUCONAZOLE 47083159063 No Longer Active Tesfaye Sherman MD Acti ve BACTRIM DS 800-160 MG ORAL TABLET 1 tab by mouth twice daily 201 05/10/28 TRIMETHOPRIM-SULFAMETHOXAZOLE 66376330094 No Longer Active Fer Dominguez Active FOSAMAX 70 MG ORAL TABLET 1 po qweek. Take 30min prio r to first food/drink. Avoid lying down x 1 hour. ALENDRONATE SODIUM 78528517 144 No Longer Active Laurence Dominguez Active REPHRESH PRO-B ORAL CAPSULE 1 tablet daily LACT OBACILLUS 45426027245 Active Edith Burch MD Active CYMBALTA 60 MG ORAL CAPSULE DELAYED RELEASE PARTICLES Take 1 tablet by mouth daily DULOXETINE HCL 94519749998 No Longer Active Edith Burch MD Active CYMBALTA 30 MG ORAL CAPSULE DELAYED RELEASE PARTICLES 1 cap by mouth daily with 60mg DULOXETINE HCL 87391847162 No Longer Active Jordan Burch MD Active FISH OIL 1000 MG ORAL CAPSULE DELAYED RELEASE 1 pill b y mouth daily for cholesterol OMEGA-3 FATTY ACIDS 37126281713 Active Cee Jaffe LPN Active RED YEAST RICE 600 MG ORAL CAPSULE 1 pill by mouth daily RED YEAST RICE EXTRACT 11468564431 Active KENDELL Moreno e DIFLUCAN 100 MG ORAL TABLET 1 tablet by mouth daily 20 19/03/05 FLUCONAZOLE 32448408962 No Longer Active Tesfaye Sherman MD Acti ve BACTRIM DS 800-160 MG ORAL TABLET 1 tab by mouth twice daily 201 05/06/28 TRIMETHOPRIM-SULFAMETHOXAZOLE 34478057053 No Longer Active Umer Sherman MD Active BACTRIM DS 800-160 MG ORAL TABLET 1 tab by mouth twice daily 201 05/04/15 TRIMETHOPRIM-SULFAMETHOXAZOLE 20556339242 No Longer Active Umer Sherman MD Active DIFLUCAN 150 MG ORAL TABLET 1 tablet by mouth daily 20 18/09/20 FLUCONAZOLE 36820850452 No Longer Active Tesfaye Sherman MD Acti ve BACTRIM DS 800-160 MG ORAL TABLET 1 tab by mouth twice daily 201 04/13/17 TRIMETHOPRIM-SULFAMETHOXAZOLE 58184992026 No Longer Active Umer Sherman MD Active ROPINIROLE HCL 0.25 MG ORAL TABLET 1 TAB PO Q HS ROPINIROLE HCL 33307821232 Active Tesfaye Sherman MD Active CEFTIN 250 MG ORAL TABLET 1 tablet twice daily x 7 days CEFUROXIME AXETIL 22455246960 No Longer Active Tesfaye Sherman MD Active DIFLUCAN 100 MG ORAL TABLET 1 tablet by mouth every other da y for 2 doses FLUCONAZOLE 04149198400 No Longer Active Tesfaye barron MD Active DIFLUCAN 100 MG ORAL TABLET 1 tablet by mouth daily X 3 DAYS 201 04/09/01 FLUCONAZOLE 62577844782 No Longer Active Rj Ravi MIRTAZAPINE 15 MG ORAL TABLET 1/2 tab by mouth at bedtime. 03/13 MIRTAZAPINE 09242265635 No Longer Active Tesfaye Sherman MD Active BACTRIM DS 800-160 MG ORAL TABLET 1 tab by mouth twice daily 201 04/09/01 TRIMETHOPRIM-SULFAMETHOXAZOLE 96866940162 No Longer Active Umer Sherman MD Active PRAMIPEXOLE DIHYDROCHLORIDE 0.125 MG ORAL TABLET take 1 tablet po qhs for restless leg syndrome. PRAMIPEXOLE DIHYDROCHLORI DE 20861647900 No Longer Active Tesfaye Sherman MD Active MAGNESIUM 400 MG ORAL TABLET 1 tab po daily [place]NR[place] GONSALVESUM 67697845887 Active Chelsea Cardenas APRN Active SUDAFED 24 HOUR 240 MG ORAL TABLET EXTENDED RELEASE 24 HOUR 1 tab po daily PSEUDOEPHEDRINE HCL 67309576069 Active Chelsea Cardenas APRN Active CETIRIZINE HCL 5 MG ORAL TABLET Take 1 tablet by mouth daily CETIRIZINE HCL 67475054376 No Longer Active Chelsea Cardenas APRN Activ e TRIMETHOPRIM 100 MG ORAL TABLET 1/2 qd TRIM ETHOPRIM 37295300405 No Longer Active Chelsea Cardenas APRN Active BACTRIM DS 800-160 MG ORAL TABLET 1 tab by mouth twice daily 201 04/04/11 TRIMETHOPRIM-SULFAMETHOXAZOLE 82966965174 No Longer Active D patricia Sherman MD Active BACTRIM DS 800-160 MG ORAL TABLET 1 tab by mouth twice daily X 10 DAYS TRIMETHOPRIM-SULFAMETHOXAZOLE 08116647351 No Longer Active Tesfaye Sherman MD Active AMOXICILLIN 500 MG ORAL CAPSULE 1 cap by mouth three times a day AMOXICILLIN 72224793421 No Longer Active Adriana Arredondo Active MECLIZINE HCL 25 MG ORAL TABLET one tab po qday prn dizziness 09/08 MECLIZINE HCL 27507202143 Active Tesfaye Sherman MD Active B-12 1000 MCG ORAL LOZENGE 1 tab po daily CYANO COBALAMIN 65596387712 Active Tesfaye Sherman MD Active VITAMIN D3 2000 UNIT ORAL TABLET 1 daily, for vitamin D deficien cy CHOLECALCIFEROL 54198270070 No Longer Active Tesfaye Sherman MD Active TIZANIDINE HCL 2 MG ORAL TABLET take 1-2 tablet by mo uth every day at bedtime at 9pm PRN TIZANIDINE HCL 97536789078 Active Tesfaye hewitt MD Active ZITHROMAX 250 MG ORAL TABLET 2 po today, then 1 po q days 2-5 20 15/02/10 AZITHROMYCIN 17453255694 No Longer Active Tesfaye Sherman MD Active BACTRIM DS 800-160 MG ORAL TABLET 1 tab by mouth twice daily 201 03/03/23 TRIMETHOPRIM-SULFAMETHOXAZOLE 10842429802 No Longer Active Umer Sherman MD Active PRELIEF 340 (65-50) MG (CA-P) ORAL TABLET CALCIUM GLYCEROPHOSPHATE 34068615674 Active Tesfaye Sherman MD Acti ve [facility] NIACIN FLUSH FREE 400-100 MG ORAL CAPSULE 1 daily NIACIN-INOSITOL 57158352094 Active Kayla Cooper MD Activ e DIFLUCAN 150 MG ORAL TABLET 1 qd FLUCONAZOL E 27790195614 No Longer Active Kayla Cooper MD Active FLUTICASONE PROPIONATE 50 MCG/ACT NASAL SUSPENSION 1 spray each nostril twice daily FLUTICASONE PROPIONATE 21610435374 Active Umer Sherman MD Active LOVASTATIN 20 MG ORAL TABLET Take 1 tablet by mouth daily LOVASTATIN 28619677354 No Longer Active Tesfaye Sherman MD Acti ve MELOXICAM 7.5 MG ORAL TABLET 1 tablet by mouth daily 2 MELOXICAM 82822308536 No Longer Active Tesfaye Sherman MD Acti ve GABAPENTIN 300 MG ORAL CAPSULE Take two tablets by mouth every e vening GABAPENTIN 42350258665 No Longer Active Edith Burch MD A ctive CLONAZEPAM 0.5 MG ORAL TABLET Take one tablet in the m orning and 1.5 tablet at 7pm CLONAZEPAM 80215929778 Active Kayla Cooper MD Active BACLOFEN 10 MG ORAL TABLET Take one tablet by mouth three times a d ay BACLOFEN 25130704731 Active Kayla Cooper MD Active GABAPENTIN 300 MG ORAL CAPSULE Take two tablets by mouth every e vening GABAPENTIN 300 MG ORAL CAPSULE 367809 GABAPENTIN I nactive MELOXICAM 7.5 MG ORAL TABLET 1 tablet by mouth daily 2 MELOXICAM 7.5 MG ORAL TABLET 428621 MELOXICAM Inactive LOVASTATIN 20 MG ORAL TABLET Take 1 tablet by mouth daily LOVASTATIN 20 MG ORAL TABLET 819373 LOVASTATIN Inactive DIFLUCAN 150 MG ORAL TABLET 1 qd DIFLUCAN 150 MG ORAL TABLET 334138 FLUCONAZOLE Inactive VITAMIN D3 2000 UNIT ORAL TABLET 1 daily, for vitamin D deficien cy VITAMIN D3 2000 UNIT ORAL TABLET CHOLECALCIFEROL Inactive AMOXICILLIN 500 MG ORAL CAPSULE 1 cap by mouth three times a day AMOXICILLIN 500 MG ORAL CAPSULE 352683 AMOXICILLIN Inactive BACTRIM DS 800-160 MG ORAL TABLET 1 tab by mouth twice daily X 10 DAYS BACTRIM DS 800-160 MG ORAL TABLET 448438 TRIMETHOPRIM-SULFAMETHOXAZOLE Inactive TRIMETHOPRIM 100 MG ORAL TABLET 1/2 qd 7 TRIMETHOPRIM 100 MG ORAL TABLET 128419 TRIMETHOPRIM Inactive CETIRIZINE HCL 5 MG ORAL TABLET Take 1 tablet by mouth daily CETIRIZINE HCL 5 MG ORAL TABLET 2835567 CETIRIZINE HCL Inactive PRAMIPEXOLE DIHYDROCHLORIDE 0.125 MG ORAL TABLET take 1 tablet po qhs for restless leg syndrome. PRAMIPEXOLE DIHYD ROCHLORIDE 0.125 MG ORAL TABLET 576465 PRAMIPEXOLE DIHYDROCHLORIDE Inactive MIRTAZAPINE 15 MG ORAL TABLET 1/2 tab by mouth at bedtime. 03/13 MIRTAZAPINE 15 MG ORAL TABLET 919202 MIRTAZAPINE In active DIFLUCAN 100 MG ORAL TABLET 1 tablet by mouth daily X 3 DAYS 201 04/09/01 DIFLUCAN 100 MG ORAL TABLET 737673 FLUCONAZOLE Inac tive DIFLUCAN 100 MG ORAL TABLET 1 tablet by mouth every other da y for 2 doses DIFLUCAN 100 MG ORAL TABLET 148490 FLUCONAZOLE Inactive CEFTIN 250 MG ORAL TABLET 1 tablet twice daily x 7 days CEFTIN 250 MG ORAL TABLET 899878 CEFUROXIME AXETIL Inactive CYMBALTA 30 MG ORAL CAPSULE DELAYED RELEASE PARTICLES 1 cap by mouth daily with 60mg CYMBALTA 30 MG ORAL CAPSULE DELAYED RELEASE PARTICLES 099061 DULOXETINE HCL Inactive CYMBALTA 60 MG ORAL CAPSULE DELAYED RELEASE PARTICLES Take 1 tablet by mouth daily CYMBALTA 60 MG ORAL CAPSULE DELAYED RELEA SE PARTICLES 151379 DULOXETINE HCL Inactive FOSAMAX 70 MG ORAL TABLET 1 po qweek. Take 30min prio r to first food/drink. Avoid lying down x 1 hour. FOSAMAX 70 MG ORAL TA BLET 520216 ALENDRONATE SODIUM Inactive DIFLUCAN 100 MG ORAL TABLET 1 tablet by mouth daily 19/08/26 DIFLUCAN 100 MG ORAL TABLET 329316 FLUCONAZOLE Inactive PREDNISONE 20 MG ORAL TABLET 1 tab twice daily for 3 d ay, then one daily for three days PREDNISONE 20 MG ORAL TABLET 382081 PREDNIS ONE Inactive BACTRIM DS 800-160 MG ORAL TABLET 1 tab by mouth twice daily 201 03/03/23 BACTRIM DS 800-160 MG ORAL TABLET 19830105 TRIMETHOPRIM-SULFAMETHOXAZOLE Inactive ZITHROMAX 250 MG ORAL TABLET 2 po today, then 1 po q days 2-5 20 15/02/10 ZITHROMAX 250 MG ORAL TABLET 508349 AZITHROMYCIN [place] ctive BACTRIM DS 800-160 MG ORAL TABLET [...] daily 19/03/05 DIFLUCAN 100 MG ORAL TABLET 759387 FLUCONAZOLE Inactive BACTRIM DS 800-160 MG ORAL TABLET 1 tab by mouth twice daily 201 05/10/28 BACTRIM DS 800-160 MG ORAL TABLET 19830105 TRIMETHOPRIM-SULFAMETHOXAZOLE Inactive AMOXICILLIN 500 MG ORAL CAPSULE 1 cap by mouth three times a day AMOXICILLIN 500 MG ORAL CAPSULE 798973 AMOXICILLIN Inactive Advance Directives Directive Description Start Date PERMISSION TO SHARE DISCUSSED WITH PATIENT -- NO DECISION MADE DURABLE POWER OF CLEANER CARPET AND UPHOLSTERY FOR HEALTHCARE Vital Signs Date Name Value [...] d blood pressure, diastolic 91 mm[Hg] BP loyn blood pressure, systolic 147 mm[Hg] BP sys [...] ... - Chemistry sodium, serum 144 mmol/L 423-682 1973/06/14 carbon dioxide, venous blood 29.4 mmol/L 21.0-32 .0 potassium, serum 4.4 mmol/L 3.5-5.2 chloride, serum 108 mmol/L 98-107 blood glucose 100 mg/dL 65-110 urea nitrogen, blood 9 mg/dL 7-18 creatinine, serum 0.67 mg/dL 0.55-1.30 alanine aminotransferase (SGPT), serum 24 U/L 12-78 aspartate aminotransferase (SGOT), serum 15 U/L 15-37 calcium, serum 9.3 mg/dL 8.5-10.1 bilirubin, serum, total 0.50 mg/dL 0.00-1.00 cholesterol, serum 268 mg/dL 019-574 3001/06/14 triglyceride, serum, fasting 126 mg/dL 30-200 HDL cholesterol, serum 51 mg/dL 32-96 LDL cholesterol, serum 192 mg/dL 0-130 TSH 0.83 m[iU]/mL 0.36-3.74 thyroxine, serum, free 1.03 ng/dL 0.76-1.46 uric acid, serum 3.2 mg/dL 2.6-7.2 Lab Report: Comp. Metabolic Panel, [facility] - Chemistry sodium, serum 141 mmol/L 387-912 9414/01/26 carbon dioxide, venous blood 29.5 mmol/L 21.0-32 [...] mg/dL Encounters Code Encounter Date Provider Facility CPT-77230 Level 4 Est. Patient 14:44:33 NOTCH GRINDER Tesfaye pearson MD [facility] CPT-98546 Level 4 Est. Patient 13:55:29 NOT[employer]ER Tesfaye pearson MD [facility] CPT-21754 Level 4 Est. Patient 17:07:34 NOT[employer] GRINDER Tesfaye pearson MD [facility] CPT-89258 Level 4 Est. Patient 13:56:54 CDT Tesfaye pearson MD [facility] CPT-57429 Level 4 Est. Patient 13:24:25 CDT Chelsea sanz APRN [facility] CPT-77275 Level 4 Est. Patient 09:14:56 CDT Tesfaye pearson MD [facility] CPT-32107 Level 4 Est. Patient 18:40:25 NOTCH GRINDER Tesfaye pearson MD [facility] CPT-98799 Level 4 Est. Patient 18:13:07 NOT[employer]ER Tesfaye pearson MD [facility] CPT-47929 Level 3 Est. Patient 10:46:32 CDT Rj cotto DO [facility] CPT-11373 Level 4 Est. Patient 20:19:25 CDT Tesfaye pearson MD [facility] CPT-39535 Level 3 Est. Patient 09:07:31 CDT Tesfaye pearson MD [facility] CPT-64237 Level 4 Est. Patient 13:12:56 CDT Tesfaye pearson MD [facility] CPT-56813 Level 4 Est. Patient 21:24:55 NOTCH GRINDER Tesfaye pearson MD [facility] CPT-01154 Level 3 Est. Patient 13:45:04 NOTCH GRINDER Tesfaye pearson MD [facility] CPT-20812 Level 4 Est. Patient 13:50:45 CDT Tesfaye pearson MD [facility] CPT-64383 Level 3 Est. Patient 10:16:10 CDT Tesfaye pearson MD [facility] CPT-08077 Level 3 Est. Patient 16:36:07 NOTCH GRINDER Kayla jameson MD [facility]-29236 Level 4 Est. Patient 16:00:14 NOTCH GRINDER Tesfaye pearson MD [facility]-35564 Level 4 Est. Patient 11:02:24 NOTCH GRINDER Tesfaye pearson MD [facility] CPT-56666 Level 3 Est. Patient 20:21:43 NOTCH GRINDER Kayla jameson MD [facility] CPT-86055 Level 3 Est. Patient 13:27:28 NOTCH GRINDER Kayla jameson MD [facility]-67076 Level 4 Est. Patient 15:57:17 NOTCH GRINDER Tesfaye pearson MD [facility] CPT-84253 Level 3 New Patient 13:25:47 CDT Tesfaye kidd MD [facility] CPT-71989 Level 3 New Patient 17:22:21 CDT Kayla angel MD [facility] Procedures Code Procedure Name Date Entry Date Standard Desc ription CPT-80887 Bone Density - XRAY USE ONLY 11:43:58 CDT 2 CPT-77125 Bone Density - XRAY USE ONLY 10:05:16 CDT 2 CPT-13130 Prv Med New Pt 40-64 yrs 18:19:25 CDT 2016 CPT-84806 Foot, right, comp min 3V - XRAY USE ONLY 10:38:34 CDT CPT-G0439 Subsequent Annual Wellness Exam 13:55:04 CDT CPT-G0438 Initial Annual Wellness Exam 11:23:17 CD T CPT-J2930 Solu Medrol 125 mg (Methyl Prednisolone Sodium Succinate) 17:29:12 NOTCH GRINDER CPT-66429 Abx/Therapy Injection 17:29:11 NOTCH GRINDER CPT-J2930 Solu Medrol 125 mg (Methyl Prednisolone Sodium Succinate) 12:34:38 NOTCH GRINDER CPT-J3420 Vitamin B12 1000mcg (Cyanocobalamin) 09:12:55 CDT CPT-J3420 Vitamin B12 1000mcg (Cyanocobalamin) 16:28:06 NOTCH GRINDER CPT-53268 Venipuncture Draw Fee 08:39:53 CDT CPT-J3420 Vitamin B12 1000mcg (Cyanocobalamin) 08:46:22 CDT CPT-83107 Abx/Therapy Injection 08:46:22 CDT CPT-J3420 Vitamin B12 1000mcg (Cyanocobalamin) 08:41:26 CDT CPT-13337 Abx/Therapy Injection 08:41:26 CDT CPT-J3420 Vitamin B12 1000mcg (Cyanocobalamin) 08:57:15 CDT CPT-91621 Abx/Therapy Injection 08:57:15 CDT CPT-J3420 Vitamin B12 1000mcg (Cyanocobalamin) 10:59:03 CDT CPT-51499 Abx/Therapy Injection 10:59:03 CDT CPT-J3420 Vitamin B12 1000mcg (Cyanocobalamin) 15:05:39 CDT CPT-57042 Abx/Therapy Injection 15:05:39 CDT CPT-J3420 Vitamin B12 1000mcg (Cyanocobalamin) 13:50:45 CDT CPT-J3420 Vitamin B12 1000mcg (Cyanocobalamin) 08:48:55 CDT CPT-04517 Abx/Therapy Injection 08:48:55 CDT CPT-J3420 Vitamin B12 1000mcg (Cyanocobalamin) 09:14:54 CDT CPT-05378 Abx/Therapy Injection 09:14:54 CDT CPT-J3420 Vitamin B12 1000mcg (Cyanocobalamin) 09:06:06 CDT CPT-12066 Abx/Therapy Injection 09:06:06 CDT CPT-J3420 Vitamin B12 1000mcg (Cyanocobalamin) 09:49:14 CDT CPT-85167 Abx/Therapy Injection 09:49:14 CDT CPT-J3420 Vitamin B12 1000mcg (Cyanocobalamin) 09:10:30 NOTCH GRINDER CPT-84799 Abx/Therapy Injection 09:10:30 NOTCH GRINDER CPT-J3420 Vitamin B12 1000mcg (Cyanocobalamin) 09:11:07 NOTCH GRINDER CPT-00898 Abx/Therapy Injection 09:11:07 NOTCH GRINDER CPT-J3420 Vitamin B12 1000mcg (Cyanocobalamin) 09:57:03 NOTCH GRINDER CPT-29031 Abx/Therapy Injection 09:57:03 NOTCH GRINDER CPT-J3420 Vitamin B12 1000mcg (Cyanocobalamin) 09:23:21 NOTCH GRINDER CPT-83097 Abx/Therapy Injection 09:23:21 NOTCH GRINDER CPT-98581 Urine Dip (Floor Use Only) 20:21:44 NOTCH GRINDER 201 02/12/11 CPT-32797 UA Dip Auto (Floor Use Only) 10:04:39 NOTCH GRINDER 2 CPT-94253 Urine Dip (Floor Use Only) 13:27:28 NOTCH GRINDER 201 02/12/01 CPT-43021 Bladder Scan 13:27:28 NOTCH GRINDER CPT-06781 Abd single AP View 14:30:51 NOTCH GRINDER CPT-OV Office Visit 10:15:43 CDT CPT-50063 Urine Dip (Floor Use Only) 17:22:21 CDT 201 02/09/02 CPT-10352 Bladder Scan 17:22:21 CDT
--- OUTSIDE RECORDS SUMMARY | 2020-05-05 12:22 | XMS REPORT | Clinical Summary ---
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 MUSIC CRITIC Pain in limb Joint pain 719.40 Active Chelsea Cardenas MUSIC CRITIC Pain in joint, site unspecified Tobacco abuse [...] tablet by mouth daily 20 20/05/01 FLUCONAZOLE 88753018803 Active Tesfaye Sherman MD Active PREDNISONE 20 MG ORAL TABLET 1 tablet by mouth twice d aily for 3 days, then 1 tablet daily for 3 days PREDNISONE 46997722547 Active Tesfaye Sherman MD Active ZITHROMAX 250 MG ORAL TABLET 2 po today, then 1 po q days 2-5 20 20/04/28 AZITHROMYCIN 31732896102 Active Tesfaye Sherman MD Ac tive MECLIZINE HCL 25 MG ORAL TABLET one tab po qday prn dizziness 20 17/09/06 MECLIZINE HCL 78043304392 No Longer Active Tesfaye Sherman MD Active PROAIR HFA 108 (90 BASE) MCG/ACT INHALATION AEROSOL SO LUTION 1 puff every 6 hours as needed ALBUTEROL SULFATE 10311827769 No Long er Active Tesfaye Sehrman MD Active OXYCODONE-ACETAMINOPHEN 5-325 MG ORAL TABLET Take one tablet by mouth every 6 hours as needed. Use sparingly OXYCODONE-ACETAMINOPHEN 27180263290 Active Tesfaye Sherman MD Active PREDNISONE 20 MG ORAL TABLET 1 tab twice daily for 3 d ay, then one daily for three days PREDNISONE 74050211460 No Longer Active Tesfaye Sherman MD Active MECLIZINE HCL 25 MG ORAL TABLET one 4 times a day as needed for dizziness MECLIZINE HCL 65646830210 Active Laurence Dominguez Active DIFLUCAN 100 MG ORAL TABLET 1 tablet by mouth daily FLUCONAZOLE 67676209088 Active Laurence Dominguez Active AMOXICILLIN 500 MG ORAL CAPSULE 1 cap by mouth three times a day AMOXICILLIN 49626091275 No Longer Active Laurence Dominguez Acti ve VENLAFAXINE HCL 75 MG ORAL TABLET 1 am 1/2 at noon VENLAFAXINE HCL 43608595014 Active Tesfaye Sherman MD Active DIFLUCAN 100 MG ORAL TABLET 1 tablet by mouth daily 20 19/08/26 FLUCONAZOLE 33044385570 No Longer Active Tesfaye Sherman MD Acti ve BACTRIM DS 800-160 MG ORAL TABLET 1 tab by mouth twice daily 201 05/10/28 TRIMETHOPRIM-SULFAMETHOXAZOLE 89650671323 No Longer Active Fer Dominguez Active FOSAMAX 70 MG ORAL TABLET 1 po qweek. Take 30min prio r to first food/drink. Avoid lying down x 1 hour. ALENDRONATE SODIUM 21316733 144 No Longer Active Laurence Dominguez Active REPHRESH PRO-B ORAL CAPSULE 1 tablet daily LACT OBACILLUS 12310185821 Active Edith Burch MD Active CYMBALTA 60 MG ORAL CAPSULE DELAYED RELEASE PARTICLES Take 1 tablet by mouth daily DULOXETINE HCL 87483946508 No Longer Active Edith Burch MD Active CYMBALTA 30 MG ORAL CAPSULE DELAYED RELEASE PARTICLES 1 cap by mouth daily with 60mg DULOXETINE HCL 07807255801 No Longer Active Jordan Burch MD Active FISH OIL 1000 MG ORAL CAPSULE DELAYED RELEASE 1 pill b y mouth daily for cholesterol OMEGA-3 FATTY ACIDS 36542870545 Active Cee Jaffe LPN Active RED YEAST RICE 600 MG ORAL CAPSULE 1 pill by mouth daily RED YEAST RICE EXTRACT 37962424511 Active Rosa Jaffe LPN Activ e DIFLUCAN 100 MG ORAL TABLET 1 tablet by mouth daily 20 19/03/05 FLUCONAZOLE 46090405636 No Longer Active Tesfaye Sherman MD Acti ve BACTRIM DS 800-160 MG ORAL TABLET 1 tab by mouth twice daily 201 05/06/28 TRIMETHOPRIM-SULFAMETHOXAZOLE 73600851749 No Longer Active Umer Sherman MD Active BACTRIM DS 800-160 MG ORAL TABLET 1 tab by mouth twice daily 201 05/04/15 TRIMETHOPRIM-SULFAMETHOXAZOLE 10930123432 No Longer Active Umer Sherman MD Active DIFLUCAN 150 MG ORAL TABLET 1 tablet by mouth daily 20 18/09/20 FLUCONAZOLE 65013712852 No Longer Active Tesfaye Sherman MD Acti ve BACTRIM DS 800-160 MG ORAL TABLET 1 tab by mouth twice daily 201 04/13/17 TRIMETHOPRIM-SULFAMETHOXAZOLE 56769814204 No Longer Active Umer Sherman MD Active ROPINIROLE HCL 0.25 MG ORAL TABLET 1 TAB PO Q HS ROPINIROLE HCL 22752792902 Active Tesfaye Sherman MD Active CEFTIN 250 MG ORAL TABLET 1 tablet twice daily x 7 days CEFUROXIME AXETIL 62066640487 No Longer Active Tesfaye Sherman MD Active DIFLUCAN 100 MG ORAL TABLET 1 tablet by mouth every other da y for 2 doses FLUCONAZOLE 52470009754 No Longer Active Tesfaye barron MD Active DIFLUCAN 100 MG ORAL TABLET 1 tablet by mouth daily X 3 DAYS 201 04/09/01 FLUCONAZOLE 70519357894 No Longer Active Rj Lyons tidragan MIRTAZAPINE 15 MG ORAL TABLET 1/2 tab by mouth at bedtime. 03/13 MIRTAZAPINE 06193177163 No Longer Active Tesfaye Sherman MD Active BACTRIM DS 800-160 MG ORAL TABLET 1 tab by mouth twice daily 201 04/09/01 TRIMETHOPRIM-SULFAMETHOXAZOLE 79707325721 No Longer Active Umer Sherman MD Active PRAMIPEXOLE DIHYDROCHLORIDE 0.125 MG ORAL TABLET take 1 tablet po qhs for restless leg syndrome. PRAMIPEXOLE DIHYDROCHLORI DE 21349417682 No Longer Active Tesfaye Sherman MD Active MAGNESIUM 400 MG ORAL TABLET 1 tab po daily MAGNE SIUM 94377937263 Active Chelsea Cardenas APRN Active SUDAFED 24 HOUR 240 MG ORAL TABLET EXTENDED RELEASE 24 HOUR 1 tab po daily PSEUDOEPHEDRINE HCL 45217638009 Active Chelsea Wilfredyvon MERCADO Active CETIRIZINE HCL 5 MG ORAL TABLET Take 1 tablet by mouth daily CETIRIZINE HCL 81138621380 No Longer Active Chelsea Cardenas APRN Activ e TRIMETHOPRIM 100 MG ORAL TABLET 1/2 qd TRIM ETHOPRIM 69304084068 No Longer Active Chelsea Cardenas APRN Active BACTRIM DS 800-160 MG ORAL TABLET 1 tab by mouth twice daily 201 04/04/11 TRIMETHOPRIM-SULFAMETHOXAZOLE 15301988283 No Longer Active Umer Sherman MD Active BACTRIM DS 800-160 MG ORAL TABLET 1 tab by mouth twice daily X 10 DAYS TRIMETHOPRIM-SULFAMETHOXAZOLE 93268012622 No Longer Active Tesfaye Sherman MD Active AMOXICILLIN 500 MG ORAL CAPSULE 1 cap by mouth three times a day AMOXICILLIN 57331049504 No Longer Active Adriana Arredondo Active B-12 1000 MCG ORAL LOZENGE 1 tab po daily CYANO COBALAMIN 49589607266 Active Tesfaye Sherman MD Active VITAMIN D3 2000 UNIT ORAL TABLET 1 daily, for vitamin D deficien cy CHOLECALCIFEROL 54082922885 No Longer Active Tesfaye Sherman MD Active TIZANIDINE HCL 2 MG ORAL TABLET take 1-[address] [facility] every day at bedtime at 9pm PRN TIZANIDINE HCL 23016929986 Active Tesfaye hewitt MD Active ZITHROMAX 250 MG ORAL TABLET 2 po today, then 1 po q days 2-5 20 15/02/10 AZITHROMYCIN 17658411934 No Longer Active Tesfaye Sherman MD Active BACTRIM DS 800-160 MG ORAL TABLET 1 tab by mouth twice daily 201 03/03/23 TRIMETHOPRIM-SULFAMETHOXAZOLE 28028911186 No Longer Active Umer Sherman MD Active PRELIEF 340 (65-50) MG (CA-P) ORAL TABLET CALCIUM GLYCEROPHOSPHATE 27089273096 Active Tesfaye Sherman MD Acti ve [facility] NIACIN FLUSH FREE 400-100 MG ORAL CAPSULE 1 daily NIACIN-INOSITOL 73580777493 Active Kayla Cooper MD Activ e DIFLUCAN 150 MG ORAL TABLET 1 qd FLUCONAZOL E 89860205123 No Longer Active Kayla Cooper MD Active FLUTICASONE PROPIONATE 50 MCG/ACT NASAL SUSPENSION 1 spray each nostril twice daily FLUTICASONE PROPIONATE 64881460691 Active D patricia Sherman MD Active LOVASTATIN 20 MG ORAL TABLET Take 1 tablet by mouth daily LOVASTATIN 73142940588 No Longer Active Tesfaye Sherman MD Acti ve MELOXICAM 7.5 MG ORAL TABLET 1 tablet by mouth daily 2 MELOXICAM 77477971917 No Longer Active Tesfaye Sherman MD Acti ve GABAPENTIN 300 MG ORAL CAPSULE Take two tablets by mouth every e vening GABAPENTIN 81394797120 No Longer Active Edith Burch MD A ctive CLONAZEPAM 0.5 MG ORAL TABLET Take one tablet in the m orning and 1.5 tablet at 7pm CLONAZEPAM 87558619509 Active Kayla Cooper MD Active BACLOFEN 10 MG ORAL TABLET Take one tablet by mouth three times a d ay BACLOFEN 93956828493 Active Kayla Cooper MD Active GABAPENTIN 300 MG ORAL CAPSULE Take two tablets by mouth every e vening GABAPENTIN 300 MG ORAL CAPSULE 359252 GABAPENTIN I nactive MELOXICAM 7.5 MG ORAL TABLET 1 tablet by mouth daily 2 MELOXICAM 7.5 MG ORAL TABLET 960843 MELOXICAM Inactive LOVASTATIN 20 MG ORAL TABLET Take 1 tablet by mouth daily LOVASTATIN 20 MG ORAL TABLET 866173 LOVASTATIN Inactive DIFLUCAN 150 MG ORAL TABLET 1 qd DIFLUCAN 150 MG ORAL TABLET 597165 FLUCONAZOLE Inactive VITAMIN D3 2000 UNIT ORAL TABLET 1 daily, for vitamin D deficien cy VITAMIN D3 2000 UNIT ORAL TABLET CHOLECALCIFEROL Inactive AMOXICILLIN 500 MG ORAL CAPSULE 1 cap by mouth three times a day AMOXICILLIN 500 MG ORAL CAPSULE 371555 AMOXICILLIN Inactive BACTRIM DS 800-160 MG ORAL TABLET 1 tab by mouth twice daily X 10 DAYS BACTRIM DS 800-160 MG ORAL TABLET 296668 TRIMETHOPRIM-SULFAMETHOXAZOLE Inactive TRIMETHOPRIM 100 MG ORAL TABLET 1/2 qd 7 TRIMETHOPRIM 100 MG ORAL TABLET 951861 TRIMETHOPRIM Inactive CETIRIZINE HCL 5 MG ORAL TABLET Take 1 tablet by mouth daily CETIRIZINE HCL 5 MG ORAL TABLET 3560843 CETIRIZINE HCL Inactive PRAMIPEXOLE DIHYDROCHLORIDE 0.125 MG ORAL TABLET take 1 tablet po qhs for restless leg syndrome. PRAMIPEXOLE DIHYD ROCHLORIDE 0.125 MG ORAL TABLET 456160 PRAMIPEXOLE DIHYDROCHLORIDE Inactive MIRTAZAPINE 15 MG ORAL TABLET 1/2 tab by mouth at bedtime. 03/13 MIRTAZAPINE 15 MG ORAL TABLET 468778 MIRTAZAPINE In active DIFLUCAN 100 MG ORAL TABLET 1 tablet by mouth daily X 3 DAYS 201 04/09/01 DIFLUCAN 100 MG ORAL TABLET 091210 FLUCONAZOLE Inac tive DIFLUCAN 100 MG ORAL TABLET 1 tablet by mouth every other da y for 2 doses DIFLUCAN 100 MG ORAL TABLET 530290 FLUCONAZOLE Inactive CEFTIN 250 MG ORAL TABLET 1 tablet twice daily x 7 days CEFTIN 250 MG ORAL TABLET CEFUROXIME AXETIL Inactive CYMBALTA 30 MG ORAL CAPSULE DELAYED RELEASE PARTICLES 1 cap by mouth daily with 60mg CYMBALTA 30 MG ORAL CAPSULE DELAYED RELEASE PARTICLES 381628 DULOXETINE HCL Inactive CYMBALTA 60 MG ORAL CAPSULE DELAYED RELEASE PARTICLES Take 1 tablet by mouth daily CYMBALTA 60 MG ORAL CAPSULE DELAYED RELEA SE PARTICLES 846210 DULOXETINE HCL Inactive FOSAMAX 70 MG ORAL TABLET 1 po qweek. Take 30min prio r to first food/drink. Avoid lying down x 1 hour. FOSAMAX 70 MG ORAL TA BLET 944457 ALENDRONATE SODIUM Inactive DIFLUCAN 100 MG ORAL TABLET 1 tablet by mouth daily 19/08/26 DIFLUCAN 100 MG ORAL TABLET 434275 FLUCONAZOLE Inactive PREDNISONE 20 MG ORAL TABLET 1 tab twice daily for 3 d ay, then one daily for three days PREDNISONE 20 MG ORAL TABLET 810457 PREDNIS ONE Inactive PROAIR HFA 108 (90 BASE) MCG/ACT INHALATION AEROSOL SO LUTION 1 puff every 6 hours as needed PROAIR HFA 108 (90 B ASE) MCG/ACT INHALATION AEROSOL SOLUTION ALBUTEROL SULFATE Inactive MECLIZINE HCL 25 MG ORAL TABLET one tab po qday prn dizziness 20 17/09/06 MECLIZINE HCL 25 MG ORAL TABLET 564181 MECLIZINE HCL Inactive BACTRIM DS 800-160 MG ORAL TABLET 1 tab by mouth twice daily 201 03/03/23 BACTRIM DS 800-160 MG ORAL TABLET 19830105 TRIMETHOPRIM-SULFAMETHOXAZOLE Inactive ZITHROMAX 250 MG ORAL TABLET 2 po today, then 1 po q days 2-5 20 15/02/10 ZITHROMAX 250 MG ORAL TABLET 692725 AZITHROMYCIN Mayela ctive BACTRIM DS 800-160 MG [...] 05/06/28 BACTRIM DS 800-160 MG ORAL TABLET 086278 TRIMETHOPRIM-SULFAMETHOXAZOLE Inactive DIFLUCAN 100 MG ORAL TABLET 1 tablet by mouth daily 20 19/03/05 DIFLUCAN 100 MG ORAL TABLET 518458 FLUCONAZOLE Inactive BACTRIM DS 800-160 MG ORAL TABLET 1 tab by mouth twice daily 201 05/10/28 BACTRIM DS 800-160 MG ORAL TABLET 995098 TRIMETHOPRIM-SULFAMETHOXAZOLE Inactive AMOXICILLIN 500 MG ORAL CAPSULE 1 cap by mouth three times a day AMOXICILLIN 500 MG ORAL CAPSULE 351117 AMOXICILLIN Inactive Advance Directives Directive Description Start Date PERMISSION TO SHARE DISCUSSED WITH PATIENT -- NO DECISION MADE DURABLE POWER OF DIRECTOR OF CONTRACTS FOR HEALTHCARE DISCUSED WITH PATIENT -- FULL [...] (E&M) Negative Lab Report: [facility] Chemistry sodium, serum 141 mmol/L 916-505 9427/01/26 carbon dioxide, venous blood 29.5 mmol/L 21.0-32 [...] mg/dL Encounters Code Encounter Date Provider Facility CPT-68592 [id number] Vst-Est Level III 09:40:56 CDT Tesfaye hSerman MD [facility] CPT-24382 Level 4 Est. Patient 22:18:12 CDT Tesfaye pearson MD [facility] CPT-71308 Level 4 Est. Patient 14:44:33 MINING HELPER Tesfaye pearson MD [facility] CPT-48000 Level 4 Est. Patient 13:55:29 MINING HELPER Tesfaye pearson MD [facility] CPT-78694 Level 4 Est. Patient 17:07:34 MINING HELPER Tefsaye pearson MD [facility] CPT-21535 Level 4 Est. Patient 13:56:54 CDT Tesfaye pearson MD [facility] CPT-26877 Level 4 Est. Patient 13:24:25 CDT Chelsea sanz APRN [facility] CPT-84680 Level 4 Est. Patient 09:14:56 CDT Tesfaye pearson MD [facility] CPT-55100 Level 4 Est. Patient 18:40:25 MINING HELPER [facility] Patient 18:13:07 MINING HELPER Tesfaye pearson MD [facility]-74106 Level 3 Est. Patient 10:46:32 CDT Rj cotto DO [facility]-90781 Level 4 Est. Patient 20:19:25 CDT Tesfyae pearson MD [facility]-71940 Level 3 Est. Patient 09:07:31 CDT Tesfaye pearson MD [facility]-58233 Level 4 Est. Patient 13:12:56 CDT Tesfaye pearson MD [facility]-36496 Level 4 Est. Patient 21:24:55 MINING HELPER Tesfaye pearson MD [facility]-39234 Level 3 Est. Patient 13:45:04 MINING HELPER Tesfaye pearson MD [facility] CPT-44193 Level 4 Est. Patient 13:50:45 CDT Tesfaye pearson MD [facility] CPT-60770 Level 3 Est. Patient 10:16:10 CDT Tesfaye pearson MD [facility] CPT-94514 Level 3 Est. Patient 16:36:07 MINING HELPER Kayla jameson MD [facility]-58347 Level 4 Est. Patient 16:00:14 MINING HELPER Tesfaye pearson MD [facility]-92268 Level 4 Est. Patient 11:02:24 MINING HELPER Tesfaye pearson MD [facility]-86923 Level 3 Est. Patient 20:21:43 MINING HELPER Kayla jameson MD [facility]-59455 Level 3 Est. Patient 13:27:28 MINING HELPER Kayla jameson MD [facility]-76847 Level 4 Est. Patient 15:57:17 MINING HELPER Tesfaye pearson MD [facility] CPT-36988 Level 3 New Patient 13:25:47 CDT Tesfaye kidd MD [facility] CPT-89745 Level 3 New Patient 17:22:21 CDT Kayla angel MD [facility] Procedures Code Procedure Name Date Entry Date Standard Desc ription CPT-G0439 Subsequent Annual Wellness Exam 22:18:11 CDT CPT-13621 Bone Density - XRAY USE ONLY 11:43:58 CDT 2 CPT-07721 Bone Density - XRAY USE ONLY 10:05:16 CDT 2 CPT-19504 Prv Med New Pt 40-64 yrs 18:19:25 CDT 2016 CPT-47420 Foot, right, comp min 3V - XRAY USE ONLY 10:38:34 CDT CPT-G0439 Subsequent Annual Wellness Exam 13:55:04 CDT CPT-G0438 Initial Annual Wellness Exam 11:23:17 CD T CPT-J2930 Solu Medrol 125 mg (Methyl Prednisolone Sodium Succinate) 17:29:12 MINING HELPER CPT-09005 Abx/Therapy Injection 17:29:11 MINING HELPER CPT-J2930 Solu Medrol 125 mg (Methyl Prednisolone Sodium Succinate) 12:34:38 MINING HELPER CPT-J3420 Vitamin B12 1000mcg (Cyanocobalamin) 09:12:55 CDT CPT-J3420 Vitamin B12 1000mcg (Cyanocobalamin) 16:28:06 MINING HELPER CPT-36866 Venipuncture Draw Fee 08:39:53 CDT CPT-J3420 Vitamin B12 1000mcg (Cyanocobalamin) 08:46:22 CDT CPT-03504 Abx/Therapy Injection 08:46:22 CDT CPT-J3420 Vitamin B12 1000mcg (Cyanocobalamin) 08:41:26 CDT CPT-97685 Abx/Therapy Injection 08:41:26 CDT CPT-J3420 Vitamin B12 1000mcg (Cyanocobalamin) 08:57:15 CDT CPT-44443 Abx/Therapy Injection 08:57:15 CDT CPT-J3420 Vitamin B12 1000mcg (Cyanocobalamin) 10:59:03 CDT CPT-97246 Abx/Therapy Injection 10:59:03 CDT CPT-J3420 Vitamin B12 1000mcg (Cyanocobalamin) 15:05:39 CDT CPT-50462 Abx/Therapy Injection 15:05:39 CDT CPT-J3420 Vitamin B12 1000mcg (Cyanocobalamin) 13:50:45 CDT CPT-J3420 Vitamin B12 1000mcg (Cyanocobalamin) 08:48:55 CDT CPT-43722 Abx/Therapy Injection 08:48:55 CDT CPT-J3420 Vitamin B12 1000mcg (Cyanocobalamin) 09:14:54 CDT CPT-55905 Abx/Therapy Injection 09:14:54 CDT CPT-J3420 Vitamin B12 1000mcg (Cyanocobalamin) 09:06:06 CDT CPT-05682 Abx/Therapy Injection 09:06:06 CDT CPT-J3420 Vitamin B12 1000mcg (Cyanocobalamin) 09:49:14 CDT CPT-99427 Abx/Therapy Injection 09:49:14 CDT CPT-J3420 Vitamin B12 1000mcg (Cyanocobalamin) 09:10:30 MINING HELPER CPT-93805 Abx/Therapy Injection 09:10:30 MINING HELPER CPT-J3420 Vitamin B12 1000mcg (Cyanocobalamin) 09:11:07 MINING HELPER CPT-80529 Abx/Therapy Injection 09:11:07 MINING HELPER CPT-J3420 Vitamin B12 1000mcg (Cyanocobalamin) 09:57:03 MINING HELPER CPT-95218 Abx/Therapy Injection 09:57:03 MINING HELPER CPT-J3420 Vitamin B12 1000mcg (Cyanocobalamin) 09:23:21 MINING HELPER CPT-88398 Abx/Therapy Injection 09:23:21 MINING HELPER CPT-97820 Urine Dip (Floor Use Only) 20:21:44 MINING HELPER 201 02/12/11 CPT-16988 UA Dip Auto (Floor Use Only) 10:04:39 MINING HELPER 2 CPT-96053 Urine Dip (Floor Use Only) 13:27:28 MINING HELPER 201 02/12/01 CPT-79711 Bladder Scan 13:27:28 MINING HELPER CPT-36010 Abd single AP View 14:30:51 MINING HELPER CPT-OV Office Visit 10:15:43 CDT CPT-38995 Urine Dip (Floor Use Only) 17:22:21 CDT 201 02/09/02 CPT-19981 Bladder Scan 17:22:21 CDT
--- OUTSIDE RECORDS SUMMARY | 2020-05-05 12:23 | XMS REPORT | Clinical Summary ---
Author Author Talon, Jeri Wood Organization [employer] Address Unknown Phone Unavailable Allergies, Adverse Reactions, [...] involuntary movements Pelvic Pain-Female 625.9 Active Kayla pual MD Unspecified symptom associated with female genital organs Fatigue 780.79 Active Tesfaye Sherman MD Other malaise and fatigue Sinusitis 461.9 Active Tsefaye Sherman MD Acute sinusitis, unspecified Interstitial Cystitis [...] every other day for 2 doses FLUCONAZOLE 31936613999 Active Rj Moss DO Active CEFTIN 250 MG TAB 1 tablet twice daily x 7 days CEFUROXIME AXETIL 24051286030 Active Rj Moss DO Active DIFLUCAN 100 MG TAB 1 tablet by mouth daily X 3 DAYS 2 FLUCONAZOLE 82026492897 No Longer Active Rj Moss DO Active MIRTAZAPINE 15 MG ORAL TABS 1/2 tab by mouth at bedtime. MIRTAZAPINE 95378094688 No Longer Active Tesfaye Sherman MD Acti ve BACTRIM DS 800-160 MG TAB 1 tab by mouth twice daily 2 TRIMETHOPRIM-SULFAMETHOXAZOLE 97238510684 No Longer Active Tesfaye Sherman MD Active PRAMIPEXOLE DIHYDROCHLORIDE 0.125 MG ORAL TABS take 1 tablet po qhs for restless leg syndrome. PRAMIPEXOLE DIHYDROCHLORIDE 10665672584 No Longer Active Tesfaye Sherman MD Active MAGNESIUM 400 MG ORAL TABS 1 tab po daily MAGNESI UM 11478288144 Active Chelsea Barba APRN Active SUDAFED 24 HOUR 240 MG ORAL [id number] 1 tab po daily PSEUDOEPHEDRINE HCL 78949822437 Active Chelsea Barba APRN A ctive CETIRIZINE HCL 5 MG TABS Take 1 tablet by mouth daily CETIRIZINE HCL 17091497719 No Longer Active Chelsea Barba APRN Acti ve TRIMETHOPRIM 100 MG TABS 1/2 qd TRIMETHOPRIM 90174942480 No Longer Active Chelsea Barba APRN Active BACTRIM DS 800-160 MG TAB 1 tab by mouth twice daily 2 TRIMETHOPRIM-SULFAMETHOXAZOLE 12756782274 No Longer Active Tesfaye Sherman MD Active BACTRIM DS 800-160 MG TAB 1 tab by mouth twice daily X 10 DAYS 2 TRIMETHOPRIM-SULFAMETHOXAZOLE 37479635022 No Longer Active Umer Sherman MD Active AMOXICILLIN 500 MG CAPS 1 cap by mouth three times a day AMOXICILLIN 99828781748 No Longer Active Adriana Arredondo Active MECLIZINE HCL 25 MG TAB one tab po qday prn dizziness MECLIZINE HCL 23435123509 Active Tesfaye Sherman MD Active B-12 1000 MCG ORAL LOZG 1 tab po daily CYANOCOBAL STANTON 45544235918 Active Tesfaye Sherman MD Active VITAMIN D3 2000 UNIT TABS 1 daily, for vitamin D deficiency 2014 CHOLECALCIFEROL 01258782101 No Longer Active Tesfaye Sherman MD Active TIZANIDINE HCL 2 MG TABS take 1-2 tablet by mouth ev [place] day at bedtime at 9pm PRN TIZANIDINE HCL 80998708087 Active Tesfaye Owusu Active ZITHROMAX 250 MG TAB 2 po today, then 1 po q days 2-5 AZITHROMYCIN 36069123680 No Longer Active Tesfaye Sherman MD Acti ve BACTRIM DS 800-160 MG TAB 1 tab by mouth twice daily 2 TRIMETHOPRIM-SULFAMETHOXAZOLE 79152403235 No Longer Active Tesfaye Sherman MD Active PRELIEF 340 (65-50) MG (CA-P) ORAL TABS CALCIUM GLYCEROPHOSPHATE 34380290589 Active Tesfaye Sherman MD Active [facility] NIACIN FLUSH FREE 400-100 MG CAPS 1 daily NIACIN-INOSITOL 90674115882 Active Kayla Cooper MD Active DIFLUCAN 150 MG TABS 1 qd FLUCONAZOLE 62299 827929 No Longer Active Kayla Cooper MD Active FLUTICASONE PROPIONATE 50 MCG/ACT SUSP 1 spray each nostril twice daily FLUTICASONE PROPIONATE 99635007858 Active Tesfaye armenta MD Active LOVASTATIN 20 MG TABS Take 1 tablet by mouth daily LOVASTATIN 17714226305 No Longer Active Tesfaye Sherman MD Active MELOXICAM 7.5 MG TABS 1 tablet by mouth daily M ELOXICAM 05327829226 No Longer Active Tesfaye Sherman MD Active GABAPENTIN 300 MG CAPS Take two tablets by mouth every evening GABAPENTIN 04733432260 No Longer Active Edith Burch MD Active OXYCODONE-ACETAMINOPHEN 5-325 MG TABS Take one tablet by mouth every 6 hours as needed. Max 12 tabs/day as needed OXYCODONE-ACETAMINOP HEN 12991194899 Active Tesfaye Sherman MD Active CYMBALTA 60 MG CPEP Take 1 tablet by mouth daily D ULOXETINE HCL 47105453289 Active Kayla Cooper MD Active CLONAZEPAM 0.5 MG TABS Take one tablet in the morning and 1.5 table t at 7pm CLONAZEPAM 46788189950 Active Kayla Cooper MD Active BACLOFEN 10 MG TABS Take one tablet by mouth three times a day BACLOFEN 36108982574 Active Kayla Cooper MD Active GABAPENTIN 300 MG CAPS Take two tablets by mouth every evening GABAPENTIN 300 MG CAPS 403341 GABAPENTIN Inactive MELOXICAM 7.5 MG TABS 1 tablet by mouth daily MELOXICAM 7.5 MG TABS 921209 MELOXICAM Inactive LOVASTATIN 20 MG TABS Take 1 tablet by mouth daily 201 02/12/20 LOVASTATIN 20 MG TABS 193423 LOVASTATIN Inactive DIFLUCAN 150 MG TABS 1 qd DIFLUCAN 150 MG T ABS 121742 FLUCONAZOLE Inactive VITAMIN D3 2000 UNIT TABS 1 daily, for vitamin D deficiency 2014 VITAMIN D3 2000 UNIT TABS CHOLECALCIFEROL Inacti ve AMOXICILLIN 500 MG CAPS 1 cap by mouth three times a day AMOXICILLIN 500 MG CAPS 351947 AMOXICILLIN Inactive BACTRIM DS 800-160 MG TAB 1 tab by mouth twice daily X 10 DAYS 2 BACTRIM DS 800-160 MG TAB 19830105 TRIMETHOPRIM-SULFAMETH OXAZOLE Inactive TRIMETHOPRIM 100 MG TABS 1/2 qd TRIMETHOPRI M 100 MG TABS 090489 TRIMETHOPRIM Inactive CETIRIZINE HCL 5 MG TABS Take 1 tablet by mouth daily CETIRIZINE HCL 5 MG TABS 4500344 CETIRIZINE HCL Inactive PRAMIPEXOLE DIHYDROCHLORIDE 0.125 MG ORAL TABS take 1 tablet po qhs for restless leg syndrome. PRAMIPEXOLE DIHYDROC HLORIDE 0.125 MG ORAL TABS 188195 PRAMIPEXOLE DIHYDROCHLORIDE Inactive MIRTAZAPINE 15 MG ORAL TABS 1/2 tab by mouth at bedtime. MIRTAZAPINE 15 MG ORAL TABS 422873 MIRTAZAPINE Inactive DIFLUCAN 100 MG TAB 1 tablet by mouth daily X 3 DAYS 2 DIFLUCAN 100 MG TAB 382247 FLUCONAZOLE Inactive BACTRIM DS 800-160 MG TAB 1 tab by mouth twice daily 2 BACTRIM DS 800-160 MG TAB 953873 TRIMETHOPRIM-SULFAMETHOXAZOLE Inac tive ZITHROMAX 250 MG TAB 2 po today, then 1 po q days 2-5 ZITHROMAX 250 MG TAB 2932646 AZITHROMYCIN Inactive BACTRIM DS 800-160 MG TAB [...] mg/dL Encounters Code Encounter Date Provider Facility CPT-57313 Level 3 Est. Patient 10:46:32 CDT Rj cotto DO [facility] CPT-85900 Level 4 Est. Patient 20:19:25 CDT Tesfaye pearson MD [facility] CPT-34567 Level 3 Est. Patient 09:07:31 CDT Tesfaye pearson MD [facility]-32409 Level 4 Est. Patient 13:12:56 CDT Tesfaye pearson MD [facility]-16758 Level 4 Est. Patient 21:24:55 MEAT HANGER Tesfaye pearson MD [facility]-83899 Level 3 Est. Patient 13:45:04 MEAT HANGER Tesfaye pearson MD [facility] CPT-05423 Level 4 Est. Patient 13:50:45 CDT Tesfaye pearson MD [facility] CPT-46985 Level 3 Est. Patient 10:16:10 CDT Tesfaye pearson MD [facility]-20015 Level 3 Est. Patient 16:36:07 MEAT HANGER Kayla jameson MD [facility]-24063 Level 4 Est. Patient 16:00:14 MEAT HANGER Tesfaye pearson MD [facility]-46006 Level 4 Est. Patient 11:02:24 MEAT HANGER Tesfaye pearson MD [facility]-73413 Level 3 Est. Patient 20:21:43 MEAT HANGER Kayla jameson MD [facility]-97572 Level 3 Est. Patient 13:27:28 MEAT HANGER Kayla jameson MD [facility]-89174 Level 4 Est. Patient 15:57:17 MEAT HANGER Tesfaye pearson MD [facility] CPT-66309 Level 3 New Patient 13:25:47 CDT Tesfaye kidd MD [facility] CPT-67572 Level 3 New Patient 17:22:21 CDT Kayla angel MD [facility] Procedures Code Procedure Name Date Entry Date Standard Desc ription CPT-G0438 Initial Annual Wellness Exam 11:23:17 CD T CPT-J2930 Solu Medrol 125 mg (Methyl Prednisolone Sodium Succinate) 17:29:12 MEAT HANGER CPT-15023 Abx/Therapy Injection 17:29:11 MEAT HANGER CPT-J2930 Solu Medrol 125 mg (Methyl Prednisolone Sodium Succinate) 12:34:38 MEAT HANGER CPT-J3420 Vitamin B12 1000mcg (Cyanocobalamin) 09:12:55 CDT CPT-J3420 Vitamin B12 1000mcg (Cyanocobalamin) 16:28:06 MEAT HANGER CPT-03265 Venipuncture Draw Fee 08:39:53 CDT CPT-J3420 Vitamin B12 1000mcg (Cyanocobalamin) 08:46:22 CDT CPT-52635 Abx/Therapy Injection 08:46:22 CDT CPT-J3420 Vitamin B12 1000mcg (Cyanocobalamin) 08:41:26 CDT CPT-36683 Abx/Therapy Injection 08:41:26 CDT CPT-J3420 Vitamin B12 1000mcg (Cyanocobalamin) 08:57:15 CDT CPT-82292 Abx/Therapy Injection 08:57:15 CDT CPT-J3420 Vitamin B12 1000mcg (Cyanocobalamin) 10:59:03 CDT CPT-99052 Abx/Therapy Injection 10:59:03 CDT CPT-J3420 Vitamin B12 1000mcg (Cyanocobalamin) 15:05:39 CDT CPT-43269 Abx/Therapy Injection 15:05:39 CDT CPT-J3420 Vitamin B12 1000mcg (Cyanocobalamin) 13:50:45 CDT CPT-J3420 Vitamin B12 1000mcg (Cyanocobalamin) 08:48:55 CDT CPT-90510 Abx/Therapy Injection 08:48:55 CDT CPT-J3420 Vitamin B12 1000mcg (Cyanocobalamin) 09:14:54 CDT CPT-96250 Abx/Therapy Injection 09:14:54 CDT CPT-J3420 Vitamin B12 1000mcg (Cyanocobalamin) 09:06:06 CDT CPT-49534 Abx/Therapy Injection 09:06:06 CDT CPT-J3420 Vitamin B12 1000mcg (Cyanocobalamin) 09:49:14 CDT CPT-46186 Abx/Therapy Injection 09:49:14 CDT CPT-J3420 Vitamin B12 1000mcg (Cyanocobalamin) 09:10:30 MEAT HANGER CPT-22703 Abx/Therapy Injection 09:10:30 MEAT HANGER CPT-J3420 Vitamin B12 1000mcg (Cyanocobalamin) 09:11:07 MEAT HANGER CPT-91342 Abx/Therapy Injection 09:11:07 MEAT HANGER CPT-J3420 Vitamin B12 1000mcg (Cyanocobalamin) 09:57:03 MEAT HANGER CPT-21415 Abx/Therapy Injection 09:57:03 MEAT HANGER CPT-J3420 Vitamin B12 1000mcg (Cyanocobalamin) 09:23:21 MEAT HANGER CPT-34315 Abx/Therapy Injection 09:23:21 MEAT HANGER CPT-79998 Urine Dip (Floor Use Only) 20:21:44 MEAT HANGER 201 02/12/11 CPT-17377 UA Dip Auto (Floor Use Only) 10:04:39 MEAT HANGER 2 CPT-92115 Urine Dip (Floor Use Only) 13:27:28 MEAT HANGER 201 02/12/01 CPT-90630 Bladder Scan 13:27:28 MEAT HANGER CPT-17381 Abd single AP View 14:30:51 MEAT HANGER CPT-OV Office Visit 10:15:43 CDT CPT-81913 Urine Dip (Floor Use Only) 17:22:21 CDT 201 02/09/02 CPT-65572 Bladder Scan 17:22:21 CDT
--- OUTSIDE RECORDS SUMMARY | 2020-05-05 12:23 | XMS REPORT | Clinical Summary ---
Author Author Talon, Jeri Wood Organization [facility] Address Unknown Phone Unavailable Allergies, Adverse Reactions, Alerts Allergy Name Reaction Description Start Date Severity Status Pr ovider NITROFURANTION Critical Active Tesfaye kidd MD XANAX Critical Active Kayla Shaw on MD PURDY Critical Active Kayla Shaw on NUVIGIIsrael Critical Active Kayla Shaw on MD DUKEROXLINENA MEDLEY Critical Active Kayla Edward son BENADRYIsrael [...] TABS 1 tab po daily MAGNESI UM 49133943166 Active Chelsea Barba APRN Active SUDAFED 24 HOUR 240 MG ORAL [id number] 1 tab po daily PSEUDOEPHEDRINE HCL 37526437684 Active Chelsea Barba APRN A ctive CETIRIZINE HCL 5 MG TABS Take 1 tablet by mouth daily CETIRIZINE HCL 37827635752 No Longer Active Chelsea Barba APRN Acti ve TRIMETHOPRIM 100 MG TABS 1/2 qd TRIMETHOPRIM 02238702099 No Longer Active Chelsea Barba APRN Active PRAMIPEXOLE DIHYDROCHLORIDE 0.125 MG ORAL TABS take 1 tablet po qhs for restless leg syndrome. PRAMIPEXOLE DIHYDROCHLORIDE 21054499216 Acti ve Tesfaye Sherman MD Active MIRTAZAPINE 15 MG ORAL TABS 1/2 tab by mouth at bedtime. MIRTAZAPINE 95590699885 Active Tesfaye Sherman MD Active BACTRIM DS 800-160 MG TAB 1 tab by mouth twice daily 2 TRIMETHOPRIM-SULFAMETHOXAZOLE 08124750242 No Longer Active Tesfaye Sherman MD Active BACTRIM DS 800-160 MG TAB 1 tab by mouth twice daily X 10 DAYS 2 TRIMETHOPRIM-SULFAMETHOXAZOLE 00399406557 No Longer Active Umer Sherman MD Active AMOXICILLIN 500 MG CAPS 1 cap by mouth three times a day AMOXICILLIN 59648074746 No Longer Active Adriana Arredondo Active MECLIZINE HCL 25 MG TAB one tab po qday prn dizziness MECLIZINE HCL 40761865770 Active Tesfaye Sherman MD Active B-12 1000 MCG ORAL LOZG 1 tab po daily CYANOCOBAL STANTON 22195010528 Active Tesfaye Sherman MD Active VITAMIN D3 2000 UNIT TABS 1 daily, for vitamin D deficiency 2014 CHOLECALCIFEROL 24720749295 No Longer Active Tesfaye Sherman MD Active TIZANIDINE HCL 2 MG TABS take 1-2 tablet by mouth at bedtime at 9pm PRN TIZANIDINE HCL 77454790803 Active Tesfaye Owusu Active ZITHROMAX 250 MG TAB 2 po today, then 1 po q days 2-5 AZITHROMYCIN 06535397900 No Longer Active Tesfaye Sherman MD Acti ve BACTRIM DS 800-160 MG TAB 1 tab by mouth twice daily 2 TRIMETHOPRIM-SULFAMETHOXAZOLE 52140441887 No Longer Active Tesfaye Sherman MD Active PRELIEF 340 (65-50) MG (CA-P) ORAL TABS CALCIUM GLYCEROPHOSPHATE 62363369371 Active Tesfaye Sherman MD Active [facility] NIACIN FLUSH FREE 400-100 MG CAPS 1 daily NIACIN-INOSITOL 36031319302 Active Kayla Cooper MD Active DIFLUCAN 150 MG TABS 1 qd FLUCONAZOLE 37356 055123 No Longer Active Kayla Cooper MD Active FLUTICASONE PROPIONATE 50 MCG/ACT SUSP 1 spray each nostril twice daily FLUTICASONE PROPIONATE 24143918222 Active Tesfaye armenta MD Active LOVASTATIN 20 MG TABS Take 1 tablet by mouth daily LOVASTATIN 79566934324 No Longer Active Tesfaye Sherman MD Active MELOXICAM 7.5 MG TABS 1 tablet by mouth daily M ELOXICAM 26876792692 No Longer Active Tesfaye Sherman MD Active GABAPENTIN 300 MG CAPS Take two tablets by mouth every evening GABAPENTIN 88432399306 No Longer Active Edith Burch MD Active OXYCODONE-ACETAMINOPHEN 5-325 MG TABS Take one tablet by mouth every 6 hours as needed. Max 12 tabs/day as needed OXYCODONE-ACETAMINOP HEN 96179612267 Active Tesfaye Sherman MD Active CYMBALTA 60 MG CPEP Take 1 tablet by mouth daily D ULOXETINE HCL 78419309954 Active Kayla Cooper MD Active CLONAZEPAM 0.5 MG TABS Take one tablet in the morning and 1.5 table t at 7pm CLONAZEPAM 24570049365 Active Kayla Cooper MD Active BACLOFEN 10 MG TABS Take one tablet by mouth three times a day BACLOFEN 21043208496 Active Kayla Cooper MD Active GABAPENTIN 300 MG CAPS Take two tablets by mouth every evening GABAPENTIN 300 MG CAPS 716376 GABAPENTIN Inactive MELOXICAM 7.5 MG TABS 1 tablet by mouth daily MELOXICAM 7.5 MG TABS 981359 MELOXICAM Inactive LOVASTATIN 20 MG TABS Take 1 tablet by mouth daily 201 02/12/20 LOVASTATIN 20 MG TABS 192639 LOVASTATIN Inactive DIFLUCAN 150 MG TABS 1 qd DIFLUCAN 150 MG T ABS 541424 FLUCONAZOLE Inactive VITAMIN D3 2000 UNIT TABS 1 daily, for vitamin D deficiency 2014 VITAMIN D3 2000 UNIT TABS CHOLECALCIFEROL Inacti ve AMOXICILLIN 500 MG CAPS 1 cap by mouth three times a day AMOXICILLIN 500 MG CAPS 716130 AMOXICILLIN Inactive BACTRIM DS 800-160 MG TAB 1 tab by mouth twice daily X 10 DAYS 2 BACTRIM DS 800-160 MG TAB 057363 TRIMETHOPRIM-SULFAMETH OXAZOLE Inactive TRIMETHOPRIM 100 MG TABS 1/2 qd TRIMETHOPRI M 100 MG TABS 794620 TRIMETHOPRIM Inactive CETIRIZINE HCL 5 MG TABS Take 1 tablet by mouth daily CETIRIZINE HCL 5 MG TABS 9160505 CETIRIZINE HCL Inactive BACTRIM DS 800-160 MG TAB 1 tab by mouth twice daily 2 BACTRIM DS 800-160 MG TAB 272357 TRIMETHOPRIM-SULFAMETHOXAZOLE Inac tive ZITHROMAX 250 MG TAB 2 po today, then 1 po q days 2-5 ZITHROMAX 250 MG TAB 9659645 AZITHROMYCIN Inactive BACTRIM DS 800-160 MG TAB 1 tab by mouth twice daily 2 BACTRIM DS 800-160 MG TAB 710233 TRIMETHOPRIM-SULFAMETHOXAZOLE Inac tive Advance Directives Directive Description [...] mg/dL Encounters Code Encounter Date Provider Facility CPT-23770 Level 4 Est. Patient 13:12:56 CDT Tesfaye pearson MD [facility] CPT-53303 Level 4 Est. Patient 21:24:55 KEELER POLYGRAPH OPERATOR Tesfaye pearson MD [facility] CPT-50594 Level 3 Est. Patient 13:45:04 KEELER POLYGRAPH OPERATOR Tesfaye pearson MD [facility] CPT-83286 Level 4 Est. Patient 13:50:45 CDT Tesfaye pearson MD [facility] CPT-13485 Level 3 Est. Patient 10:16:10 CDT Tesfaye pearson MD [facility] CPT-22438 Level 3 Est. Patient 16:36:07 KEELER POLYGRAPH OPERATOR Kayla jameson MD [facility] CPT-76566 Level 4 Est. Patient 16:00:14 KEELER POLYGRAPH OPERATOR Tesfaye pearson MD [facility] CPT-59651 Level 4 Est. Patient 11:02:24 KEELER POLYGRAPH OPERATOR Tesfaye pearson MD [facility] CPT-01190 Level 3 Est. Patient 20:21:43 KEELER POLYGRAPH OPERATOR Kayla jameson MD [facility] CPT-08443 Level 3 Est. Patient 13:27:28 KEELER POLYGRAPH OPERATOR Kayla jameson MD [facility] CPT-10157 Level 4 Est. Patient 15:57:17 KEELER POLYGRAPH OPERATOR Tesfaye pearson MD [facility] CPT-54576 Level 3 New Patient 13:25:47 CDT Tesfaye kidd MD [facility] CPT-41973 Level 3 New Patient 17:22:21 CDT Kayla angel MD [facility] Procedures Code Procedure Name Date Entry Date Standard Desc ription CPT-G0438 Initial Annual Wellness Exam 11:23:17 CD T CPT-J2930 Solu Medrol 125 mg (Methyl Prednisolone Sodium Succinate) 17:29:12 KEELER POLYGRAPH OPERATOR CPT-43849 Abx/Therapy Injection 17:29:11 KEELER POLYGRAPH OPERATOR CPT-J2930 Solu Medrol 125 mg (Methyl Prednisolone Sodium Succinate) 12:34:38 KEELER POLYGRAPH OPERATOR CPT-J3420 Vitamin B12 1000mcg (Cyanocobalamin) 09:12:55 CDT CPT-J3420 Vitamin B12 1000mcg (Cyanocobalamin) 16:28:06 KEELER POLYGRAPH OPERATOR CPT-58580 Venipuncture Draw Fee 08:39:53 CDT CPT-J3420 Vitamin B12 1000mcg (Cyanocobalamin) 08:46:22 CDT CPT-49197 Abx/Therapy Injection 08:46:22 CDT CPT-J3420 Vitamin B12 1000mcg (Cyanocobalamin) 08:41:26 CDT CPT-75497 Abx/Therapy Injection 08:41:26 CDT CPT-J3420 Vitamin B12 1000mcg (Cyanocobalamin) 08:57:15 CDT CPT-97333 Abx/Therapy Injection 08:57:15 CDT CPT-J3420 Vitamin B12 1000mcg (Cyanocobalamin) 10:59:03 CDT CPT-89521 Abx/Therapy Injection 10:59:03 CDT CPT-J3420 Vitamin B12 1000mcg (Cyanocobalamin) 15:05:39 CDT CPT-80713 Abx/Therapy Injection 15:05:39 CDT CPT-J3420 Vitamin B12 1000mcg (Cyanocobalamin) 13:50:45 CDT CPT-J3420 Vitamin B12 1000mcg (Cyanocobalamin) 08:48:55 CDT CPT-01192 Abx/Therapy Injection 08:48:55 CDT CPT-J3420 Vitamin B12 1000mcg (Cyanocobalamin) 09:14:54 CDT CPT-83093 Abx/Therapy Injection 09:14:54 CDT CPT-J3420 Vitamin B12 1000mcg (Cyanocobalamin) 09:06:06 CDT CPT-14669 Abx/Therapy Injection 09:06:06 CDT CPT-J3420 Vitamin B12 1000mcg (Cyanocobalamin) 09:49:14 CDT CPT-88874 Abx/Therapy Injection 09:49:14 CDT CPT-J3420 Vitamin B12 1000mcg (Cyanocobalamin) 09:10:30 KEELER POLYGRAPH OPERATOR CPT-95340 Abx/Therapy Injection 09:10:30 KEELER POLYGRAPH OPERATOR CPT-J3420 Vitamin B12 1000mcg (Cyanocobalamin) 09:11:07 KEELER POLYGRAPH OPERATOR CPT-24370 Abx/Therapy Injection 09:11:07 KEELER POLYGRAPH OPERATOR CPT-J3420 Vitamin B12 1000mcg (Cyanocobalamin) 09:57:03 KEELER POLYGRAPH OPERATOR CPT-15417 Abx/Therapy Injection 09:57:03 KEELER POLYGRAPH OPERATOR CPT-J3420 Vitamin B12 1000mcg (Cyanocobalamin) 09:23:21 KEELER POLYGRAPH OPERATOR CPT-67430 Abx/Therapy Injection 09:23:21 KEELER POLYGRAPH OPERATOR CPT-62544 Urine Dip (Floor Use Only) 20:21:44 KEELER POLYGRAPH OPERATOR 201 02/12/11 CPT-11435 UA Dip Auto (Floor Use Only) 10:04:39 KEELER POLYGRAPH OPERATOR 2 CPT-98523 Urine Dip (Floor Use Only) 13:27:28 KEELER POLYGRAPH OPERATOR 201 02/12/01 CPT-94079 Bladder Scan 13:27:28 KEELER POLYGRAPH OPERATOR CPT-38662 Abd single AP View 14:30:51 KEELER POLYGRAPH OPERATOR CPT-OV Office Visit 10:15:43 CDT CPT-42518 Urine Dip (Floor Use Only) 17:22:21 CDT 201 02/09/02 CPT-39521 Bladder Scan 17:22:21 CDT
--- OUTSIDE RECORDS SUMMARY | 2020-05-05 12:23 | XMS REPORT | Clinical Summary ---
Author Author Talon, Jeri Wood Organization [employer] Address Unknown Phone Unavailable Allergies, Adverse Reactions, [...] tab by mouth twice daily 2 TRIMETHOPRIM-SULFAMETHOXAZOLE [id number] No Longer Active Tesfaye Sherman MD Active DIFLUCAN 150 MG TAB 1 tablet by mouth daily FLU CONAZOLE 76306156224 No Longer Active Tesfaye Sherman MD Active BACTRIM DS 800-160 MG TAB 1 tab by mouth twice daily 2 TRIMETHOPRIM-SULFAMETHOXAZOLE 33037759373 No Longer Active Tesfaye Sherman MD Active ROPINIROLE HCL 0.25 MG ORAL TABS 1 TAB PO Q HS ROPINIROLE HCL 77217487296 Active Tesfaye Sherman MD Active CYMBALTA 30 MG CPEP 1 cap by mouth daily with 60mg DULOXETINE HCL 79632852853 Active Tesfaye Sherman MD Active CEFTIN 250 MG TAB 1 tablet twice daily x 7 days 11/19 CEFUROXIME AXETIL 99344420794 No Longer Active Tesfaye Sherman MD Acti ve DIFLUCAN 100 MG TABS 1 tablet by mouth every other day for 2 dos es FLUCONAZOLE 55019834389 No Longer Active Tesfaye Sherman MD Active DIFLUCAN 100 MG TAB 1 tablet by mouth daily X 3 DAYS 2 FLUCONAZOLE 78123471506 No Longer Active Rj Moss DO Active MIRTAZAPINE 15 MG ORAL TABS 1/2 tab by mouth at bedtime. MIRTAZAPINE 36893337709 No Longer Active Tesfaye Sherman MD Acti ve BACTRIM DS 800-160 MG TAB 1 tab by mouth twice daily 2 TRIMETHOPRIM-SULFAMETHOXAZOLE 62105171063 No Longer Active Tesfaye Sherman MD Active PRAMIPEXOLE DIHYDROCHLORIDE 0.125 MG ORAL TABS take 1 tablet po qhs for restless leg syndrome. PRAMIPEXOLE DIHYDROCHLORIDE 07658390755 No Longer Active Tesfaye Sherman MD Active MAGNESIUM 400 MG ORAL TABS 1 tab po daily MAGNESI UM 94361414391 Active Chelsea Barba APRN Active SUDAFED 24 HOUR 240 MG ORAL [id number] 1 tab po daily PSEUDOEPHEDRINE HCL 75469279971 Active Chelsea Barba APRN A ctive CETIRIZINE HCL 5 MG TABS Take 1 tablet by mouth daily CETIRIZINE HCL 53678978361 No Longer Active Chelsea Barba APRN Acti ve TRIMETHOPRIM 100 MG TABS 1/2 qd TRIMETHOPRIM 94769186951 No Longer Active Chelsea Barba APRN Active BACTRIM DS 800-160 MG TAB 1 tab by mouth twice daily 2 TRIMETHOPRIM-SULFAMETHOXAZOLE 27982707616 No Longer Active Tesfaye Sherman MD Active BACTRIM DS 800-160 MG TAB 1 tab by mouth twice daily X 10 DAYS 2 TRIMETHOPRIM-SULFAMETHOXAZOLE 92761413992 No Longer Active Umer Sherman MD Active AMOXICILLIN 500 MG CAPS 1 cap by mouth three times a day AMOXICILLIN 29826961623 No Longer Active Adriana Arredondo Active MECLIZINE HCL 25 MG TAB one tab po qday prn dizziness MECLIZINE HCL 10664714550 Active Tesfaye Sherman MD Active B-12 1000 MCG ORAL LOZG 1 tab po daily CYANOCOBAL STANTON 57255698680 Active Tesfaye Sherman MD Active VITAMIN D3 2000 UNIT TABS 1 daily, for vitamin D deficiency 2014 CHOLECALCIFEROL 49008146320 No Longer Active Tesfaye Sherman MD Active TIZANIDINE HCL 2 MG TABS take 1-2 tablet by mouth ev at bedtime at 9pm PRN TIZANIDINE HCL 62995506570 Active Tesfaye Owusu Active ZITHROMAX 250 MG TAB 2 po today, then 1 po q days 2-5 AZITHROMYCIN 31254568481 No Longer Active Tesfaye Sherman MD Acti ve BACTRIM DS 800-160 MG TAB 1 tab by mouth twice daily 2 TRIMETHOPRIM-SULFAMETHOXAZOLE 44801304828 No Longer Active Tesfaye Sherman MD Active PRELIEF 340 (65-50) MG (CA-P) ORAL TABS CALCIUM GLYCEROPHOSPHATE 24948692773 Active Tesfaye Sherman MD Active [facility] NIACIN FLUSH FREE 400-100 MG CAPS 1 daily NIACIN-INOSITOL 93224665415 Active Kayla Cooper MD Active DIFLUCAN 150 MG TABS 1 qd FLUCONAZOLE 07193 110028 No Longer Active Kayla Cooper MD Active FLUTICASONE PROPIONATE 50 MCG/ACT SUSP 1 spray each nostril twice daily FLUTICASONE PROPIONATE 48680584345 Active Tesfaye armenta MD Active LOVASTATIN 20 MG TABS Take 1 tablet by mouth daily LOVASTATIN 33185163946 No Longer Active Tesfaye Sherman MD Active MELOXICAM 7.5 MG TABS 1 tablet by mouth daily M ELOXICAM 02751698642 No Longer Active Tesfaye Sherman MD Active GABAPENTIN 300 MG CAPS Take two tablets by mouth every evening GABAPENTIN 73257206477 No Longer Active Edith Burch MD Active OXYCODONE-ACETAMINOPHEN 5-325 MG TABS Take one tablet by mouth every 6 hours as needed. Max 12 tabs/day as needed OXYCODONE-ACETAMINOP HEN 74879445981 Active Tesfaye Sherman MD Active CYMBALTA 60 MG CPEP Take 1 tablet by mouth daily D ULOXETINE HCL 31601491743 Active Kayla Cooper MD Active CLONAZEPAM 0.5 MG TABS Take one tablet in the morning and 1.5 table t at 7pm CLONAZEPAM 59041237750 Active Kayla Cooper MD Active BACLOFEN 10 MG TABS Take one tablet by mouth three times a day BACLOFEN 74985132812 Active Kayla Cooper MD Active GABAPENTIN 300 MG CAPS Take two tablets by mouth every evening GABAPENTIN 300 MG CAPS 277875 GABAPENTIN Inactive MELOXICAM 7.5 MG TABS 1 tablet by mouth daily MELOXICAM 7.5 MG TABS 236059 MELOXICAM Inactive LOVASTATIN 20 MG TABS Take 1 tablet by mouth daily 201 02/12/20 LOVASTATIN 20 MG TABS 049561 LOVASTATIN Inactive DIFLUCAN 150 MG TABS 1 qd DIFLUCAN 150 MG T ABS 701415 FLUCONAZOLE Inactive VITAMIN D3 2000 UNIT TABS 1 daily, for vitamin D deficiency 2014 VITAMIN D3 2000 UNIT TABS CHOLECALCIFEROL Inacti ve AMOXICILLIN 500 MG CAPS 1 cap by mouth three times a day AMOXICILLIN 500 MG CAPS 011277 AMOXICILLIN Inactive BACTRIM DS 800-160 MG TAB 1 tab by mouth twice daily X 10 DAYS 2 BACTRIM DS 800-160 MG TAB 999684 TRIMETHOPRIM-SULFAMETH OXAZOLE Inactive TRIMETHOPRIM 100 MG TABS 1/2 qd TRIMETHOPRI M 100 MG TABS 675013 TRIMETHOPRIM Inactive CETIRIZINE HCL 5 MG TABS Take 1 tablet by mouth daily CETIRIZINE HCL 5 MG TABS 4618954 CETIRIZINE HCL Inactive PRAMIPEXOLE DIHYDROCHLORIDE 0.125 MG ORAL TABS take 1 tablet po qhs for restless leg syndrome. PRAMIPEXOLE DIHYDROC HLORIDE 0.125 MG ORAL TABS 887215 PRAMIPEXOLE DIHYDROCHLORIDE Inactive MIRTAZAPINE 15 MG ORAL TABS 1/2 tab by mouth at bedtime. MIRTAZAPINE 15 MG ORAL TABS 001925 MIRTAZAPINE Inactive DIFLUCAN 100 MG TAB 1 tablet by mouth daily X 3 DAYS 2 DIFLUCAN 100 MG TAB 694536 FLUCONAZOLE Inactive DIFLUCAN 100 MG TABS 1 tablet by mouth every other day for 2 dos es DIFLUCAN 100 MG TABS 067797 FLUCONAZOLE Inactive CEFTIN 250 MG TAB 1 tablet twice daily x 7 days 11/19 CEFTIN 250 MG TAB 659062 CEFUROXIME AXETIL Inactive BACTRIM DS 800-160 MG TAB 1 tab by mouth twice daily 2 BACTRIM DS 800-160 MG TAB 736213 TRIMETHOPRIM-SULFAMETHOXAZOLE Inac tive ZITHROMAX 250 MG TAB 2 po today, then 1 po q days 2-5 ZITHROMAX 250 MG TAB 7794730 AZITHROMYCIN Inactive BACTRIM DS 800-160 MG TAB [...] mg/dL Encounters Code Encounter Date Provider Facility CPT-[id number] Level 4 Est. Patient 18:40:25 SECURITY SYSTEMS ADMINISTRATOR Tesfaye pearson MD [facility] CPT-31395 Level 4 Est. Patient 18:13:07 SECURITY SYSTEMS ADMINISTRATOR Tesfaye pearson MD [facility] CPT-13532 Level 3 Est. Patient 10:46:32 CDT Rj cotto DO [facility] CPT-99375 Level 4 Est. Patient 20:19:25 CDT Tesfaye pearson MD [facility] CPT-83940 Level 3 Est. Patient 09:07:31 CDT Tesfaye pearson MD [facility] CPT-45321 Level 4 Est. Patient 13:12:56 CDT Tesfaye pearson MD [facility]-70401 Level 4 Est. Patient 21:24:55 SECURITY SYSTEMS ADMINISTRATOR Tesfaye pearson MD [facility]-65268 Level 3 Est. Patient 13:45:04 SECURITY SYSTEMS ADMINISTRATOR Tesfaye pearson MD [facility] CPT-17400 Level 4 Est. Patient 13:50:45 CDT Tesfaye pearson MD [facility] CPT-50159 Level 3 Est. Patient 10:16:10 CDT Tesfaye pearson MD [facility]-36524 Level 3 Est. Patient 16:36:07 SECURITY SYSTEMS ADMINISTRATOR Kayla jameson MD [facility]-57809 Level 4 Est. Patient 16:00:14 SECURITY SYSTEMS ADMINISTRATOR Tesfaye pearson MD [facility]-49219 Level 4 Est. Patient 11:02:24 SECURITY SYSTEMS ADMINISTRATOR Tesfaye pearson MD [facility]-10754 Level 3 Est. Patient 20:21:43 SECURITY SYSTEMS ADMINISTRATOR Kayla jameson MD [facility]-03866 Level 3 Est. Patient 13:27:28 SECURITY SYSTEMS ADMINISTRATOR Kayla jameson MD [facility]-08960 Level 4 Est. Patient 15:57:17 SECURITY SYSTEMS ADMINISTRATOR Tesfaye pearson MD [facility] CPT-28344 Level 3 New Patient 13:25:47 CDT Tesfaye kidd MD [facility] CPT-95774 Level 3 New Patient 17:22:21 CDT Kayla angel MD [facility] Procedures Code Procedure Name Date Entry Date Standard Desc ription CPT-G0438 Initial Annual Wellness Exam 11:23:17 CD T CPT-J2930 Solu Medrol 125 mg (Methyl Prednisolone Sodium Succinate) 17:29:12 SECURITY SYSTEMS ADMINISTRATOR CPT-48045 Abx/Therapy Injection 17:29:11 SECURITY SYSTEMS ADMINISTRATOR CPT-J2930 Solu Medrol 125 mg (Methyl Prednisolone Sodium Succinate) 12:34:38 SECURITY SYSTEMS ADMINISTRATOR CPT-J3420 Vitamin B12 1000mcg (Cyanocobalamin) 09:12:55 CDT CPT-J3420 Vitamin B12 1000mcg (Cyanocobalamin) 16:28:06 SECURITY SYSTEMS ADMINISTRATOR CPT-52077 Venipuncture Draw Fee 08:39:53 CDT CPT-J3420 Vitamin B12 1000mcg (Cyanocobalamin) 08:46:22 CDT CPT-23895 Abx/Therapy Injection 08:46:22 CDT CPT-J3420 Vitamin B12 1000mcg (Cyanocobalamin) 08:41:26 CDT CPT-43974 Abx/Therapy Injection 08:41:26 CDT CPT-J3420 Vitamin B12 1000mcg (Cyanocobalamin) 08:57:15 CDT CPT-22679 Abx/Therapy Injection 08:57:15 CDT CPT-J3420 Vitamin B12 1000mcg (Cyanocobalamin) 10:59:03 CDT CPT-11961 Abx/Therapy Injection 10:59:03 CDT CPT-J3420 Vitamin B12 1000mcg (Cyanocobalamin) 15:05:39 CDT CPT-05404 Abx/Therapy Injection 15:05:39 CDT CPT-J3420 Vitamin B12 1000mcg (Cyanocobalamin) 13:50:45 CDT CPT-J3420 Vitamin B12 1000mcg (Cyanocobalamin) 08:48:55 CDT CPT-24421 Abx/Therapy Injection 08:48:55 CDT CPT-J3420 Vitamin B12 1000mcg (Cyanocobalamin) 09:14:54 CDT CPT-50660 Abx/Therapy Injection 09:14:54 CDT CPT-J3420 Vitamin B12 1000mcg (Cyanocobalamin) 09:06:06 CDT CPT-35831 Abx/Therapy Injection 09:06:06 CDT CPT-J3420 Vitamin B12 1000mcg (Cyanocobalamin) 09:49:14 CDT CPT-74930 Abx/Therapy Injection 09:49:14 CDT CPT-J3420 Vitamin B12 1000mcg (Cyanocobalamin) 09:10:30 SECURITY SYSTEMS ADMINISTRATOR CPT-30284 Abx/Therapy Injection 09:10:30 SECURITY SYSTEMS ADMINISTRATOR CPT-J3420 Vitamin B12 1000mcg (Cyanocobalamin) 09:11:07 SECURITY SYSTEMS ADMINISTRATOR CPT-76933 Abx/Therapy Injection 09:11:07 SECURITY SYSTEMS ADMINISTRATOR CPT-J3420 Vitamin B12 1000mcg (Cyanocobalamin) 09:57:03 SECURITY SYSTEMS ADMINISTRATOR CPT-36931 Abx/Therapy Injection 09:57:03 SECURITY SYSTEMS ADMINISTRATOR CPT-J3420 Vitamin B12 1000mcg (Cyanocobalamin) 09:23:21 SECURITY SYSTEMS ADMINISTRATOR CPT-13966 Abx/Therapy Injection 09:23:21 SECURITY SYSTEMS ADMINISTRATOR CPT-40644 Urine Dip (Floor Use Only) 20:21:44 SECURITY SYSTEMS ADMINISTRATOR 201 02/12/11 CPT-51029 UA Dip Auto (Floor Use Only) 10:04:39 SECURITY SYSTEMS ADMINISTRATOR 2 CPT-67373 Urine Dip (Floor Use Only) 13:27:28 SECURITY SYSTEMS ADMINISTRATOR 201 02/12/01 CPT-71548 Bladder Scan 13:27:28 SECURITY SYSTEMS ADMINISTRATOR CPT-51785 Abd single AP View 14:30:51 SECURITY SYSTEMS ADMINISTRATOR CPT-OV Office Visit 10:15:43 CDT CPT-48598 Urine Dip (Floor Use Only) 17:22:21 CDT 201 02/09/02 CPT-30307 Bladder Scan 17:22:21 CDT
--- OUTSIDE RECORDS SUMMARY | 2020-05-05 12:24 | XMS REPORT | Clinical Summary ---
Author Author Talon, Jeri Wood Organization [employer] Address Unknown Phone Unavailable Allergies, Adverse Reactions, [...] ORAL CAPS 1 tablet daily LACTOBACI LLUS [id number] Active Edith Burch MD Active CYMBALTA 60 MG CPEP Take 1 tablet by mouth daily 1 DULOXETINE HCL 99460763429 No Longer Active Edith Burch MD Active CYMBALTA 30 MG CPEP 1 cap by mouth daily with 60mg 201 05/09/11 DULOXETINE HCL 20731914328 No Longer Active Edith Burch MD Activ e FISH OIL 1000 MG CPDR 1 pill by mouth daily for cholesterol 04/18 OMEGA- 3 FATTY ACIDS 28747506401 Active Rosa Jaffe LPN Acti ve RED YEAST RICE 600 MG CAPS 1 pill by mouth daily RED YEAST RICE EXTRACT 88489892018 Active Rosa Jaffe LPN Activ e VENLAFAXINE HCL 37.5 MG TABS 1/4 tab po titrating up to full dose 2 VENLAFAXINE HCL 39285319619 Active Chelsea aBrba APRN Activ e DIFLUCAN 100 MG TAB 1 tablet by mouth daily FLU CONAZOLE 77629235225 No Longer Active Tesfaye Sherman MD Active BACTRIM DS 800-160 MG TAB 1 tab by mouth twice daily 2 TRIMETHOPRIM-SULFAMETHOXAZOLE 00994374642 No Longer Active Tesfaye Sherman MD Active BACTRIM DS 800-160 MG TAB 1 tab by mouth twice daily 2 TRIMETHOPRIM-SULFAMETHOXAZOLE 88914866506 No Longer Active Tesfaye Sherman MD Active DIFLUCAN 150 MG TAB 1 tablet by mouth daily FLU CONAZOLE 37028078314 No Longer Active Tesfaye Sherman MD Active BACTRIM DS 800-160 MG TAB 1 tab by mouth twice daily 2 TRIMETHOPRIM-SULFAMETHOXAZOLE 12946646292 No Longer Active Tesfaye Sherman MD Active ROPINIROLE HCL 0.25 MG ORAL TABS 1 TAB PO Q HS ROPINIROLE HCL 71231704301 Active Tesfaye Sherman MD Active CEFTIN 250 MG TAB 1 tablet twice daily x 7 days 11/19 CEFUROXIME AXETIL 71422142779 No Longer Active Tesfaye Sherman MD Acti ve DIFLUCAN 100 MG TABS 1 tablet by mouth every other day for 2 dos es FLUCONAZOLE 19515313100 No Longer Active Tesfaye Sherman MD Active DIFLUCAN 100 MG TAB 1 tablet by mouth daily X 3 DAYS 2 FLUCONAZOLE 40058964925 No Longer Active Rj oMss DO Active MIRTAZAPINE 15 MG ORAL TABS 1/2 tab by mouth at bedtime. MIRTAZAPINE 46072577187 No Longer Active Tesfaye Sherman MD Acti ve BACTRIM DS 800-160 MG TAB 1 tab by mouth twice daily 2 TRIMETHOPRIM-SULFAMETHOXAZOLE 38900787987 No Longer Active Tesfaye Sherman MD Active PRAMIPEXOLE DIHYDROCHLORIDE 0.125 MG ORAL TABS take 1 tablet po qhs for restless leg syndrome. PRAMIPEXOLE DIHYDROCHLORIDE 41248187198 No Longer Active Tesfaye Sherman MD Active MAGNESIUM 400 MG ORAL TABS 1 tab po daily MAGNESI UM 40122707421 Active Chelsea Barba APRN Active SUDAFED 24 HOUR 240 MG ORAL GO19M-XLE 1 tab po daily PSEUDOEPHEDRINE HCL 05182503136 Active Chelsea Barba APRN A ctive CETIRIZINE HCL 5 MG TABS Take 1 tablet by mouth daily CETIRIZINE HCL 85846932396 No Longer Active Chelsea Barba APRN Acti ve TRIMETHOPRIM 100 MG TABS 1/2 qd TRIMETHOPRIM 72924230470 No Longer Active Chelsea Barba CREW DISPATCHER Active BACTRIM DS 800-160 MG TAB 1 tab by mouth twice daily 2 TRIMETHOPRIM-SULFAMETHOXAZOLE 68714507750 No Longer Active Tesfaye Sherman MD Active BACTRIM DS 800-160 MG TAB 1 tab by mouth twice daily X 10 DAYS 2 TRIMETHOPRIM-SULFAMETHOXAZOLE 27285312150 No Longer Active Umer Sherman MD Active AMOXICILLIN 500 MG CAPS 1 cap by mouth three times a day AMOXICILLIN 12475712422 No Longer Active Adriana Arredondo Active MECLIZINE HCL 25 MG TAB one tab po qday prn dizziness MECLIZINE HCL 42263599239 Active Tesfaye Sherman MD Active B-12 1000 MCG ORAL LOZG 1 tab po daily CYANOCOBAL STANTON 95855974523 Active Tesfaye Sherman MD Active VITAMIN D3 2000 UNIT TABS 1 daily, for vitamin D deficiency 2014 CHOLECALCIFEROL 68659184979 No Longer Active Tesfaye Sherman MD Active TIZANIDINE HCL 2 MG TABS take 1-2 tablet by mouth at bedtime at 9pm PRN TIZANIDINE HCL 06050261848 Active Tesfaye Owusu Active ZITHROMAX 250 MG TAB 2 po today, then 1 po q days 2-5 AZITHROMYCIN 73361961315 No Longer Active Tesfaye Sherman MD Acti ve BACTRIM DS 800-160 MG TAB 1 tab by mouth twice daily 2 TRIMETHOPRIM-SULFAMETHOXAZOLE 77304024110 No Longer Active Tesfaye Sherman MD Active PRELIEF 340 (65-50) MG (CA-P) ORAL TABS CALCIUM GLYCEROPHOSPHATE 17952018532 Active Tesfaye Sherman MD Active [facility] NIACIN FLUSH FREE 400-100 MG CAPS 1 daily NIACIN-INOSITOL 32907788462 Active Kayla Cooper MD Active DIFLUCAN 150 MG TABS 1 qd FLUCONAZOLE 82487 543379 No Longer Active Kayla Cooper MD Active FLUTICASONE PROPIONATE 50 MCG/ACT SUSP 1 spray each nostril twice daily FLUTICASONE PROPIONATE 22015633001 Active Tesfaye armenta MD Active LOVASTATIN 20 MG TABS Take 1 tablet by mouth daily LOVASTATIN 20488403463 No Longer Active Tesfaye Sherman MD Active MELOXICAM 7.5 MG TABS 1 tablet by mouth daily M ELOXICAM 91756051526 No Longer Active Tesfaye Sherman MD Active GABAPENTIN 300 MG CAPS Take two tablets by mouth every evening GABAPENTIN 34413076853 No Longer Active Edith Burch MD Active OXYCODONE-ACETAMINOPHEN 5-325 MG TABS Take one tablet by mouth every 6 hours as needed. Max 12 tabs/day as needed OXYCODONE-ACETAMINOP HEN 46289731505 Active Tesfaye Sherman MD Active CLONAZEPAM 0.5 MG TABS Take one tablet in the morning and 1.5 table t at 7pm CLONAZEPAM 81456443617 Active Kayla Cooper MD Active BACLOFEN 10 MG TABS Take one tablet by mouth three times a day BACLOFEN 07098642045 Active Kayla Cooper MD Active GABAPENTIN 300 MG CAPS Take two tablets by mouth every evening GABAPENTIN 300 MG CAPS 606922 GABAPENTIN Inactive MELOXICAM 7.5 MG TABS 1 tablet by mouth daily MELOXICAM 7.5 MG TABS 874599 MELOXICAM Inactive LOVASTATIN 20 MG TABS Take 1 tablet by mouth daily 201 02/12/20 LOVASTATIN 20 MG TABS 239955 LOVASTATIN Inactive DIFLUCAN 150 MG TABS 1 qd DIFLUCAN 150 MG T ABS 447285 FLUCONAZOLE Inactive VITAMIN D3 2000 UNIT TABS 1 daily, for vitamin D deficiency 2014 VITAMIN D3 2000 UNIT TABS CHOLECALCIFEROL Inacti ve AMOXICILLIN 500 MG CAPS 1 cap by mouth three times a day AMOXICILLIN 500 MG CAPS 710053 AMOXICILLIN Inactive BACTRIM DS 800-160 MG TAB 1 tab by mouth twice daily X 10 DAYS 2 BACTRIM DS 800-160 MG TAB 19830105 TRIMETHOPRIM-SULFAMETH OXAZOLE Inactive TRIMETHOPRIM 100 MG TABS 1/2 qd TRIMETHOPRI M 100 MG TABS 19830102 TRIMETHOPRIM Inactive CETIRIZINE HCL 5 MG TABS Take 1 tablet by mouth daily CETIRIZINE HCL 5 MG TABS 2924977 CETIRIZINE HCL Inactive PRAMIPEXOLE DIHYDROCHLORIDE 0.125 MG ORAL TABS take 1 tablet po qhs for restless leg syndrome. PRAMIPEXOLE DIHYDROC HLORIDE 0.125 MG ORAL TABS 300143 PRAMIPEXOLE DIHYDROCHLORIDE Inactive MIRTAZAPINE 15 MG ORAL TABS 1/2 tab by mouth at bedtime. MIRTAZAPINE 15 MG ORAL TABS 118760 MIRTAZAPINE Inactive DIFLUCAN 100 MG TAB 1 tablet by mouth daily X 3 DAYS 2 DIFLUCAN 100 MG TAB 482752 FLUCONAZOLE Inactive DIFLUCAN 100 MG TABS 1 tablet by mouth every other day for 2 dos es DIFLUCAN 100 MG TABS 175846 FLUCONAZOLE Inactive CEFTIN 250 MG TAB 1 tablet twice daily x 7 days 11/19 CEFTIN 250 MG TAB 772726 CEFUROXIME AXETIL Inactive CYMBALTA 30 MG CPEP 1 cap by mouth daily with 60mg 201 05/09/11 CYMBALTA 30 MG CPEP 533789 DULOXETINE HCL Inactive CYMBALTA 60 MG CPEP Take 1 tablet by mouth daily 05/13 CYMBALTA 60 MG CPEP 234000 DULOXETINE HCL Inactive BACTRIM DS 800-160 MG TAB 1 tab by mouth twice daily 2 BACTRIM DS 800-160 MG TAB 155198 TRIMETHOPRIM-SULFAMETHOXAZOLE Inac tive ZITHROMAX 250 MG TAB 2 po today, then 1 po q days 2-5 ZITHROMAX 250 MG TAB 4749947 AZITHROMYCIN Inactive BACTRIM DS 800-160 MG TAB [...] by mouth daily DIFLUCAN 100 MG TAB 839696 FLUCONAZOLE Inactive Advance Directives Directive Description Start [...] 11 .6-14.8 platelet count 349 10^3/MM^3 10*3/mm3 345-241 4007/06/14 neutrophils as percent of blood leukocytes 56.3 % 42.2-75.2 monocytes as percent of blood leukocytes 8.7 % 1.7-9.3 lymphocytes as percent of blood leukocytes 28.7 % 20.5-51.1 erythrocyte (RBC) count 4.91 10^6/MM^3 10*6/mm3 3.80-5.8 0 hemoglobin, blood 15.8 g/dL 12.0-16.0 Lab Report: Comp. Metabolic Panel, Lipid Panel, Thyroid Stimulating Horm ... - Chemistry sodium, serum 144 mmol/L 996-880 4733/06/14 carbon dioxide, venous blood 29.4 mmol/L 21.0-32 .0 potassium, serum 4.4 mmol/L 3.5-5.2 chloride, serum 108 mmol/L 98-107 blood glucose 100 mg/dL 65-110 urea nitrogen, blood 9 mg/dL 7-18 creatinine, serum 0.67 mg/dL 0.55-1.30 alanine aminotransferase (SGPT), serum 24 U/L 12-78 aspartate aminotransferase (SGOT), serum 15 U/L 15-37 calcium, serum 9.3 mg/dL 8.5-10.1 bilirubin, serum, total 0.50 mg/dL 0.00-1.00 cholesterol, serum 268 mg/dL 233-605 0350/06/14 triglyceride, serum, fasting 126 mg/dL 30-200 HDL [...] bilirubin, urine Negative Negative Office Visit: 3 MONTH FU - Basic LDL target level 160 mg/dL Office Visit: 3 MONTH FU - Chemistry HDL cholesterol, serum, target level 40 mg/dL triglyceride, target level 150 mg/dL cholesterol, target level 200 mg/dL Encounters Code Encounter Date Provider Facility CPT-35730 Level 4 Est. Patient 13:24:25 CDT Stephanie MERCADO [facility] CPT-05624 Level 4 Est. Patient 09:14:56 CDT Tesfaye pearson MD [facility] CPT-04716 Level 4 Est. Patient 18:40:25 [employer] Tesfaye pearson MD [facility] CPT-32377 Level 4 Est. Patient 18:13:07 [employer] Tesfaye pearson MD [facility]-55386 Level 3 Est. Patient 10:46:32 CDT Rj cotto DO [facility]-67042 Level 4 Est. Patient 20:19:25 CDT Tesfaye pearson MD [facility]-47799 Level 3 Est. Patient 09:07:31 CDT Tesfaye pearson MD [facility]-19172 Level 4 Est. Patient 13:12:56 CDT Tesfaye pearson MD [facility]-01533 Level 4 Est. Patient 21:24:55 [employer]INE Tesfaye pearson MD [facility]-08038 Level 3 Est. Patient 13:45:04 [employer]ACHINE Tesfaye pearson MD [facility] CPT-70883 Level 4 Est. Patient 13:50:45 CDT Tesfaye pearson MD [facility] CPT-86293 Level 3 Est. Patient 10:16:10 CDT Tesfaye pearson MD [facility] CPT-08460 Level 3 Est. Patient 16:36:07 [employer] Kayla jameson MD [facility]-12648 Level 4 Est. Patient 16:00:14 [employer]ACHINE Tesfaye pearson MD [facility]-41943 Level 4 Est. Patient 11:02:24 [employer]ACHINE Tesfaye pearson MD [facility]-70783 Level 3 Est. Patient 20:21:43 [employer]INE Kayla jameson MD [facility]-20596 Level 3 Est. Patient 13:27:28 [employer]INE Kayla jameson MD [facility]-58272 Level 4 Est. Patient 15:57:17 [employer]ACHINE Tesfaye pearson MD [facility] CPT-41521 Level 3 New Patient 13:25:47 CDT Tesfaye kidd MD [facility] CPT-71108 Level 3 New Patient 17:22:21 CDT Kayla angel MD [facility] Procedures Code Procedure Name Date Entry Date Standard Desc ription CPT-26601 Bone Density - XRAY USE ONLY 10:05:16 CDT 2 CPT-63618 Prv Med New Pt 40-64 yrs 18:19:25 CDT 2016 CPT-08871 Foot, right, comp min 3V - XRAY USE ONLY 10:38:34 CDT CPT-G0439 Subsequent Annual Wellness Exam 13:55:04 CDT CPT-G0438 Initial Annual Wellness Exam 11:23:17 CD T CPT-J2930 Solu Medrol 125 mg (Methyl Prednisolone Sodium Succinate) 17:29:12 [employer] CPT-32982 Abx/Therapy Injection 17:29:11 [employer]ACHINE CPT-J2930 Solu Medrol 125 mg (Methyl Prednisolone Sodium Succinate) 12:34:38 [employer]ACHINE CPT-J3420 Vitamin B12 1000mcg (Cyanocobalamin) 09:12:55 CDT CPT-J3420 Vitamin B12 1000mcg (Cyanocobalamin) 16:28:06 [employer] CPT-97128 Venipuncture Draw Fee 08:39:53 CDT CPT-J3420 Vitamin B12 1000mcg (Cyanocobalamin) 08:46:22 CDT CPT-71387 Abx/Therapy Injection 08:46:22 CDT CPT-J3420 Vitamin B12 1000mcg (Cyanocobalamin) 08:41:26 CDT CPT-13526 Abx/Therapy Injection 08:41:26 CDT CPT-J3420 Vitamin B12 1000mcg (Cyanocobalamin) 08:57:15 CDT CPT-71043 Abx/Therapy Injection 08:57:15 CDT CPT-J3420 Vitamin B12 1000mcg (Cyanocobalamin) 10:59:03 CDT CPT-20727 Abx/Therapy Injection 10:59:03 CDT CPT-J3420 Vitamin B12 1000mcg (Cyanocobalamin) 15:05:39 CDT CPT-21310 Abx/Therapy Injection 15:05:39 CDT CPT-J3420 Vitamin B12 1000mcg (Cyanocobalamin) 13:50:45 CDT CPT-J3420 Vitamin B12 1000mcg (Cyanocobalamin) 08:48:55 CDT CPT-10973 Abx/Therapy Injection 08:48:55 CDT CPT-J3420 Vitamin B12 1000mcg (Cyanocobalamin) 09:14:54 CDT CPT-51642 Abx/Therapy Injection 09:14:54 CDT CPT-J3420 Vitamin B12 1000mcg (Cyanocobalamin) 09:06:06 CDT CPT-64581 Abx/Therapy Injection 09:06:06 CDT CPT-J3420 Vitamin B12 1000mcg (Cyanocobalamin) 09:49:14 CDT CPT-48445 Abx/Therapy Injection 09:49:14 CDT CPT-J3420 Vitamin B12 1000mcg (Cyanocobalamin) 09:10:30 [employer]ACHINE CPT-15873 Abx/Therapy Injection 09:10:30 [employer] MACHINE CPT-J3420 Vitamin B12 1000mcg (Cyanocobalamin) 09:11:07 [employer]ACHINE CPT-16667 Abx/Therapy Injection 09:11:07 [employer]ACHINE CPT-J3420 Vitamin B12 1000mcg (Cyanocobalamin) 09:57:03 [employer]ACHINE CPT-46734 Abx/Therapy Injection 09:57:03 [employer] MACHINE CPT-J3420 Vitamin B12 1000mcg (Cyanocobalamin) 09:23:21 [employer]ACHINE CPT-40262 Abx/Therapy Injection 09:23:21 BR[employer] MACHINE CPT-96277 Urine Dip (Floor Use Only) 20:21:44 BR[employer] MACHINE 201 02/12/11 CPT-62797 UA Dip Auto (Floor Use Only) 10:04:39 BR[employer] MACHINE 2 CPT-29481 Urine Dip (Floor Use Only) 13:27:28 BR[employer] MACHINE 201 02/12/01 CPT-59097 Bladder Scan 13:27:28 [employer]ACHINE CPT-67443 Abd single AP View 14:30:51 [employer] MACHINE CPT-OV Office Visit 10:15:43 CDT CPT-31889 Urine Dip (Floor Use Only) 17:22:21 CDT 201 02/09/02 CPT-68736 Bladder Scan 17:22:21 CDT
--- OUTSIDE RECORDS SUMMARY | 2020-05-05 12:24 | XMS REPORT | Clinical Summary ---
Author Author Talon, Jeri Wood Organization [employer] Address Unknown Phone Unavailable Allergies, Adverse Reactions, Alerts Allergy Name Reaction Description Start Date Severity Status Pr ovider FOSAMAX Critical Active Tesfaye armenta MD PRAMIPEXOLE Critical Active Tesfaye villar MD CEFTIN Critical Active Tesfaye ramenta MD CIPRO Critical Active Tesfaye armenta MD [...] Toe pain, right 729.5 Active Chelsea Cardenas [employer]UL[employer] SYSTEM Pain in limb Foot pain, right 729.5 Active Chelsea Cardenas [employer] Pain in limb Joint pain 719.40 Active Chelsea Cardenas [employer] SYSTEM Pain in joint, site unspecified Tobacco abuse [...] tablet by mouth daily 20 20/05/01 FLUCONAZOLE 22487479062 Active Tesfaye Sherman MD Active PREDNISONE 20 MG ORAL TABLET 1 tablet by mouth twice d aily for 3 days, then 1 tablet daily for 3 days PREDNISONE 40427474870 Active Tesfaye Sherman MD Active ZITHROMAX 250 MG ORAL TABLET 2 po today, then 1 po q days 2-5 20 20/04/28 AZITHROMYCIN 58367044030 Active Tesfaye Sherman MD Ac tive MECLIZINE HCL 25 MG ORAL TABLET one tab po qday prn dizziness 20 17/09/06 MECLIZINE HCL 62497271451 No Longer Active Tesfaye Sherman MD Active PROAIR HFA 108 (90 BASE) MCG/ACT INHALATION AEROSOL SO LUTION 1 puff every 6 hours as needed ALBUTEROL SULFATE 88706105414 No Long er Active Tesfaye Sherman MD Active OXYCODONE-ACETAMINOPHEN 5-325 MG ORAL TABLET Take one tablet by mouth every 6 hours as needed. Use sparingly OXYCODONE-ACETAMINOPHEN 69132562139 Active Tesfaye Sherman MD Active PREDNISONE 20 MG ORAL TABLET 1 tab twice daily for 3 d ay, then one daily for three days PREDNISONE 29291323111 No Longer Active Tesfaye Sherman MD Active MECLIZINE HCL 25 MG ORAL TABLET one 4 times a day as needed for dizziness MECLIZINE HCL 62924432847 Active Laurence Dominguez Active DIFLUCAN 100 MG ORAL TABLET 1 tablet by mouth daily FLUCONAZOLE 76875141736 Active Laurence Dominguez Active AMOXICILLIN 500 MG ORAL CAPSULE 1 cap by mouth three times a day AMOXICILLIN 01967581466 No Longer Active Laurence Dominguez Acti ve VENLAFAXINE HCL 75 MG ORAL TABLET 1 am 1/2 at noon VENLAFAXINE HCL 24472849876 Active Tesfaye Sherman MD Active DIFLUCAN 100 MG ORAL TABLET 1 tablet by mouth daily 20 19/08/26 FLUCONAZOLE 62201039469 No Longer Active Tesfaye Sherman MD Acti ve BACTRIM DS 800-160 MG ORAL TABLET 1 tab by mouth twice daily 201 05/10/28 TRIMETHOPRIM-SULFAMETHOXAZOLE 32501813227 No Longer Active Fer Dominguez Active FOSAMAX 70 MG ORAL TABLET 1 po qweek. Take 30min prio r to first food/drink. Avoid lying down x 1 hour. ALENDRONATE SODIUM 22922816 144 No Longer Active Laurence Dominguez Active REPHRESH PRO-B ORAL CAPSULE 1 tablet daily LACT OBACILLUS 80682025719 Active Edith Burch MD Active CYMBALTA 60 MG ORAL CAPSULE DELAYED RELEASE PARTICLES Take 1 tablet by mouth daily DULOXETINE HCL 38984509815 No Longer Active Edith Burch MD Active CYMBALTA 30 MG ORAL CAPSULE DELAYED RELEASE PARTICLES 1 cap by mouth daily with 60mg DULOXETINE HCL 24827541235 No Longer Active Jordan Burch MD Active FISH OIL 1000 MG ORAL CAPSULE DELAYED RELEASE 1 pill b y mouth daily for cholesterol OMEGA-3 FATTY ACIDS 85660776607 Active Cee Jaffe LPN Active RED YEAST RICE 600 MG ORAL CAPSULE 1 pill by mouth daily RED YEAST RICE EXTRACT 00063724385 Active Rosa Jaffe LPN Activ e DIFLUCAN 100 MG ORAL TABLET 1 tablet by mouth daily 20 19/03/05 FLUCONAZOLE 60834853846 No Longer Active Tesfaye Sherman MD Acti ve BACTRIM DS 800-160 MG ORAL TABLET 1 tab by mouth twice daily 201 05/06/28 TRIMETHOPRIM-SULFAMETHOXAZOLE 01792435033 No Longer Active Umer Sherman MD Active BACTRIM DS 800-160 MG ORAL TABLET 1 tab by mouth twice daily 201 05/04/15 TRIMETHOPRIM-SULFAMETHOXAZOLE 03445991698 No Longer Active Umer Sherman MD Active DIFLUCAN 150 MG ORAL TABLET 1 tablet by mouth daily 20 18/09/20 FLUCONAZOLE 75784877937 No Longer Active Tesfaye Sherman MD Acti ve BACTRIM DS 800-160 MG ORAL TABLET 1 tab by mouth twice daily 201 04/13/17 TRIMETHOPRIM-SULFAMETHOXAZOLE 99110395944 No Longer Active Umer Sherman MD Active ROPINIROLE HCL 0.25 MG ORAL TABLET 1 TAB PO Q HS ROPINIROLE HCL 49914690351 Active Tesfaye Sherman MD Active CEFTIN 250 MG ORAL TABLET 1 tablet twice daily x 7 days CEFUROXIME AXETIL 93261577724 No Longer Active Tesfaye Sherman MD Active DIFLUCAN 100 MG ORAL TABLET 1 tablet by mouth every other da y for 2 doses FLUCONAZOLE 68548394247 No Longer Active Tesfaye barron MD Active DIFLUCAN 100 MG ORAL TABLET 1 tablet by mouth daily X 3 DAYS 201 04/09/01 FLUCONAZOLE 40451005717 No Longer Active Rj Lyons tidragan MIRTAZAPINE 15 MG ORAL TABLET 1/2 tab by mouth at bedtime. 03/13 MIRTAZAPINE 59630013927 No Longer Active Tesfaye Sherman MD Active BACTRIM DS 800-160 MG ORAL TABLET 1 tab by mouth twice daily 201 04/09/01 TRIMETHOPRIM-SULFAMETHOXAZOLE 92373242676 No Longer Active Umer Sherman MD Active PRAMIPEXOLE DIHYDROCHLORIDE 0.125 MG ORAL TABLET take 1 tablet po qhs for restless leg syndrome. PRAMIPEXOLE DIHYDROCHLORI DE 48568906052 No Longer Active Tesfaye Sherman MD Active MAGNESIUM 400 MG ORAL TABLET 1 tab po daily MAGNE SIUM 49753550707 Active Chelsea Cardenas APRN Active SUDAFED 24 HOUR 240 MG ORAL TABLET EXTENDED RELEASE 24 HOUR 1 tab po daily PSEUDOEPHEDRINE HCL 09120938152 Active Chelsea Wilfredyvon MERCADO Active CETIRIZINE HCL 5 MG ORAL TABLET Take 1 tablet by mouth daily CETIRIZINE HCL 81772980109 No Longer Active Chelsea Cardenas APRN Activ e TRIMETHOPRIM 100 MG ORAL TABLET 1/2 qd TRIM ETHOPRIM 45331748105 No Longer Active Chelsea Cardenas APRN Active BACTRIM DS 800-160 MG ORAL TABLET 1 tab by mouth twice daily 201 04/04/11 TRIMETHOPRIM-SULFAMETHOXAZOLE 82419106968 No Longer Active Umer Sherman MD Active BACTRIM DS 800-160 MG ORAL TABLET 1 tab by mouth twice daily X 10 DAYS TRIMETHOPRIM-SULFAMETHOXAZOLE 63783895350 No Longer Active Tesfaye Sherman MD Active AMOXICILLIN 500 MG ORAL CAPSULE 1 cap by mouth three times a day AMOXICILLIN 06539224182 No Longer Active Adriana Arredondo Active B-12 1000 MCG ORAL LOZENGE 1 tab po daily CYANO COBALAMIN 55943992946 Active Tesfaye Sherman MD Active VITAMIN D3 2000 UNIT ORAL TABLET 1 daily, for vitamin D deficien cy CHOLECALCIFEROL 80338057872 No Longer Active Tesfaye Sherman MD Active TIZANIDINE HCL 2 MG ORAL TABLET take 1-2 tablet by mo [facility] every day at bedtime at 9pm PRN TIZANIDINE HCL 95604083749 Active Tesfaye hewitt MD Active ZITHROMAX 250 MG ORAL TABLET 2 po today, then 1 po q days 2-5 20 15/02/10 AZITHROMYCIN 85996191338 No Longer Active Tesfaye Sherman MD Active BACTRIM DS 800-160 MG ORAL TABLET 1 tab by mouth twice daily 201 03/03/23 TRIMETHOPRIM-SULFAMETHOXAZOLE 83630431267 No Longer Active Umer Sherman MD Active PRELIEF 340 (65-50) MG (CA-P) ORAL TABLET CALCIUM GLYCEROPHOSPHATE 28113646020 Active Tesfaye Sherman MD Acti ve [facility] NIACIN FLUSH FREE 400-100 MG ORAL CAPSULE 1 daily NIACIN-INOSITOL 91096499393 Active Kayla Cooper MD Activ e DIFLUCAN 150 MG ORAL TABLET 1 qd FLUCONAZOL E 64082553418 No Longer Active Kayla Cooper MD Active FLUTICASONE PROPIONATE 50 MCG/ACT NASAL SUSPENSION 1 spray each nostril twice daily FLUTICASONE PROPIONATE 67582563741 Active D patricia Sherman MD Active LOVASTATIN 20 MG ORAL TABLET Take 1 tablet by mouth daily LOVASTATIN 55973872081 No Longer Active Tesfaye Sherman MD Acti ve MELOXICAM 7.5 MG ORAL TABLET 1 tablet by mouth daily 2 MELOXICAM 79840875104 No Longer Active Tesfaye Sherman MD Acti ve GABAPENTIN 300 MG ORAL CAPSULE Take two tablets by mouth every e vening GABAPENTIN 57490137781 No Longer Active Edith Burch MD A ctive CLONAZEPAM 0.5 MG ORAL TABLET Take one tablet in the m orning and 1.5 tablet at 7pm CLONAZEPAM 54616296766 Active Kayla Cooper MD Active BACLOFEN 10 MG ORAL TABLET Take one tablet by mouth three times a d ay BACLOFEN 42043253044 Active Kayla Cooper MD Active GABAPENTIN 300 MG ORAL CAPSULE Take two tablets by mouth every e vening GABAPENTIN 300 MG ORAL CAPSULE 106243 GABAPENTIN I nactive MELOXICAM 7.5 MG ORAL TABLET 1 tablet by mouth daily 2 MELOXICAM 7.5 MG ORAL TABLET 960872 MELOXICAM Inactive LOVASTATIN 20 MG ORAL TABLET Take 1 tablet by mouth daily LOVASTATIN 20 MG ORAL TABLET 519967 LOVASTATIN Inactive DIFLUCAN 150 MG ORAL TABLET 1 qd DIFLUCAN 150 MG ORAL TABLET 135817 FLUCONAZOLE Inactive VITAMIN D3 2000 UNIT ORAL TABLET 1 daily, for vitamin D deficien cy VITAMIN D3 2000 UNIT ORAL TABLET CHOLECALCIFEROL Inactive AMOXICILLIN 500 MG ORAL CAPSULE 1 cap by mouth three times a day AMOXICILLIN 500 MG ORAL CAPSULE 459049 AMOXICILLIN Inactive BACTRIM DS 800-160 MG ORAL TABLET 1 tab by mouth twice daily X 10 DAYS BACTRIM DS 800-160 MG ORAL TABLET 552049 TRIMETHOPRIM-SULFAMETHOXAZOLE Inactive TRIMETHOPRIM 100 MG ORAL TABLET 1/2 qd 7 TRIMETHOPRIM 100 MG ORAL TABLET 463250 TRIMETHOPRIM Inactive CETIRIZINE HCL 5 MG ORAL TABLET Take 1 tablet by mouth daily CETIRIZINE HCL 5 MG ORAL TABLET 6800629 CETIRIZINE HCL Inactive PRAMIPEXOLE DIHYDROCHLORIDE 0.125 MG ORAL TABLET take 1 tablet po qhs for restless leg syndrome. PRAMIPEXOLE DIHYD ROCHLORIDE 0.125 MG ORAL TABLET 060959 PRAMIPEXOLE DIHYDROCHLORIDE Inactive MIRTAZAPINE 15 MG ORAL TABLET 1/2 tab by mouth at bedtime. 03/13 MIRTAZAPINE 15 MG ORAL TABLET 076330 MIRTAZAPINE In active DIFLUCAN 100 MG ORAL TABLET 1 tablet by mouth daily X 3 DAYS 201 04/09/01 DIFLUCAN 100 MG ORAL TABLET 442365 FLUCONAZOLE Inac tive DIFLUCAN 100 MG ORAL TABLET 1 tablet by mouth every other da y for 2 doses DIFLUCAN 100 MG ORAL TABLET 065743 FLUCONAZOLE Inactive CEFTIN 250 MG ORAL TABLET 1 tablet twice daily x 7 days CEFTIN 250 MG ORAL TABLET CEFUROXIME AXETIL Inactive CYMBALTA 30 MG ORAL CAPSULE DELAYED RELEASE PARTICLES 1 cap by mouth daily with 60mg CYMBALTA 30 MG ORAL CAPSULE DELAYED RELEASE PARTICLES 131643 DULOXETINE HCL Inactive CYMBALTA 60 MG ORAL CAPSULE DELAYED RELEASE PARTICLES Take 1 tablet by mouth daily CYMBALTA 60 MG ORAL CAPSULE DELAYED RELEA SE PARTICLES 684677 DULOXETINE HCL Inactive FOSAMAX 70 MG ORAL TABLET 1 po qweek. Take 30min prio r to first food/drink. Avoid lying down x 1 hour. FOSAMAX 70 MG ORAL TA BLET 306506 ALENDRONATE SODIUM Inactive DIFLUCAN 100 MG ORAL TABLET 1 tablet by mouth daily 19/08/26 DIFLUCAN 100 MG ORAL TABLET 258586 FLUCONAZOLE Inactive PREDNISONE 20 MG ORAL TABLET 1 tab twice daily for 3 d ay, then one daily for three days PREDNISONE 20 MG ORAL TABLET 103921 PREDNIS ONE Inactive PROAIR HFA 108 (90 BASE) MCG/ACT INHALATION AEROSOL SO LUTION 1 puff every 6 hours as needed PROAIR HFA 108 (90 B ASE) MCG/ACT INHALATION AEROSOL SOLUTION ALBUTEROL SULFATE Inactive MECLIZINE HCL 25 MG ORAL TABLET one tab po qday prn dizziness 20 17/09/06 MECLIZINE HCL 25 MG ORAL TABLET 178626 MECLIZINE HCL Inactive BACTRIM DS 800-160 MG ORAL TABLET 1 tab by mouth twice daily 201 03/03/23 BACTRIM DS 800-160 MG ORAL TABLET 19830105 TRIMETHOPRIM-SULFAMETHOXAZOLE Inactive ZITHROMAX 250 MG ORAL TABLET 2 po today, then 1 po q days 2-5 20 15/02/10 ZITHROMAX 250 MG ORAL TABLET 346106 AZITHROMYCIN Mayela ctive BACTRIM DS 800-160 MG [...] 05/06/28 BACTRIM DS 800-160 MG ORAL TABLET 793056 TRIMETHOPRIM-SULFAMETHOXAZOLE Inactive DIFLUCAN 100 MG ORAL TABLET 1 tablet by mouth daily 20 19/03/05 DIFLUCAN 100 MG ORAL TABLET 348675 FLUCONAZOLE Inactive BACTRIM DS 800-160 MG ORAL TABLET 1 tab by mouth twice daily 201 05/10/28 BACTRIM DS 800-160 MG ORAL TABLET 617822 TRIMETHOPRIM-SULFAMETHOXAZOLE Inactive AMOXICILLIN 500 MG ORAL CAPSULE 1 cap by mouth three times a day AMOXICILLIN 500 MG ORAL CAPSULE 464348 AMOXICILLIN Inactive Advance Directives Directive Description Start Date PERMISSION TO SHARE DISCUSSED WITH PATIENT -- NO DECISION 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 sodium, serum 141 mmol/L 357-010 9887/01/26 carbon dioxide, venous blood 29.5 mmol/L 21.0-32 [...] mg/dL Encounters Code Encounter Date Provider Facility [id number] Vst-Est Level III 09:40:56 CDT Tesfaye Sherman MD [facility] CPT-13076 Level 4 Est. Patient 22:18:12 CDT Tesfaye pearson MD [facility] CPT-32647 Level 4 Est. Patient 14:44:33 [employer] Tesfaye pearson MD [facility] CPT-09046 Level 4 Est. Patient 13:55:29 [employer] Tesfaye pearson MD [facility] CPT-71323 Level 4 Est. Patient 17:07:34 [employer] Tesfaye pearson MD [facility] CPT-44888 Level 4 Est. Patient 13:56:54 CDT Tesfaye pearson MD [facility] CPT-40413 Level 4 Est. Patient 13:24:25 CDT Chelsea sanz APRN [facility] CPT-75619 Level 4 Est. Patient 09:14:56 CDT Tesfaye pearson MD [facility] CPT-18050 Level 4 Est. Patient 18:40:25 [employer] [facility]858 Level 4 Est. Patient 18:13:07 [employer] Tesfaye pearson MD [facility]-26777 Level 3 Est. Patient 10:46:32 CDT Rj cotto DO [facility]-82746 Level 4 Est. Patient 20:19:25 CDT Tesfaye pearson MD [facility]-55779 Level 3 Est. Patient 09:07:31 CDT Tesfaye pearson MD [facility]-19157 Level 4 Est. Patient 13:12:56 CDT Tesfaye pearson MD [facility]-05738 Level 4 Est. Patient 21:24:55 [employer] Tesfaye pearson MD [facility]-12797 Level 3 Est. Patient 13:45:04 [employer] Tesfaye pearson MD [facility] CPT-47160 Level 4 Est. Patient 13:50:45 CDT Tesfaye pearson MD [facility] CPT-65813 Level 3 Est. Patient 10:16:10 CDT Tesfaye pearson MD [facility] CPT-98091 Level 3 Est. Patient 16:36:07 [employer] Kayla jameson MD [facility]-20149 Level 4 Est. Patient 16:00:14 [employer] Tesfaye pearson MD [facility]-89533 Level 4 Est. Patient 11:02:24 [employer] Tesfaye pearson MD [facility]-93112 Level 3 Est. Patient 20:21:43 [employer] Kayla jameson MD [facility]-71747 Level 3 Est. Patient 13:27:28 [employer] Kayla jameson MD [facility]-52552 Level 4 Est. Patient 15:57:17 [employer] Tesfaye pearson MD [facility] CPT-05390 Level 3 New Patient 13:25:47 CDT Tesfaye kidd MD [facility] CPT-52337 Level 3 New Patient 17:22:21 CDT Kayla angel MD [facility] Procedures Code Procedure Name Date Entry Date Standard Desc ription CPT-G0439 Subsequent Annual Wellness Exam 22:18:11 CDT CPT-74927 Bone Density - XRAY USE ONLY 11:43:58 CDT 2 CPT-03771 Bone Density - XRAY USE ONLY 10:05:16 CDT 2 CPT-91571 Prv Med New Pt 40-64 yrs 18:19:25 CDT 2016 CPT-97318 Foot, right, comp min 3V - XRAY USE ONLY 10:38:34 CDT CPT-G0439 Subsequent Annual Wellness Exam 13:55:04 CDT CPT-G0438 Initial Annual Wellness Exam 11:23:17 CD T CPT-J2930 Solu Medrol 125 mg (Methyl Prednisolone Sodium Succinate) 17:29:12 [employer] CPT-41853 Abx/Therapy Injection 17:29:11 [employer] CPT-J2930 Solu Medrol 125 mg (Methyl Prednisolone Sodium Succinate) 12:34:38 [employer] CPT-J3420 Vitamin B12 1000mcg (Cyanocobalamin) 09:12:55 CDT CPT-J3420 Vitamin B12 1000mcg (Cyanocobalamin) 16:28:06 [employer] CPT-90246 Venipuncture Draw Fee 08:39:53 CDT CPT-J3420 Vitamin B12 1000mcg (Cyanocobalamin) 08:46:22 CDT CPT-34958 Abx/Therapy Injection 08:46:22 CDT CPT-J3420 Vitamin B12 1000mcg (Cyanocobalamin) 08:41:26 CDT CPT-99715 Abx/Therapy Injection 08:41:26 CDT CPT-J3420 Vitamin B12 1000mcg (Cyanocobalamin) 08:57:15 CDT CPT-11932 Abx/Therapy Injection 08:57:15 CDT CPT-J3420 Vitamin B12 1000mcg (Cyanocobalamin) 10:59:03 CDT CPT-05683 Abx/Therapy Injection 10:59:03 CDT CPT-J3420 Vitamin B12 1000mcg (Cyanocobalamin) 15:05:39 CDT CPT-29460 Abx/Therapy Injection 15:05:39 CDT CPT-J3420 Vitamin B12 1000mcg (Cyanocobalamin) 13:50:45 CDT CPT-J3420 Vitamin B12 1000mcg (Cyanocobalamin) 08:48:55 CDT CPT-76816 Abx/Therapy Injection 08:48:55 CDT CPT-J3420 Vitamin B12 1000mcg (Cyanocobalamin) 09:14:54 CDT CPT-45654 Abx/Therapy Injection 09:14:54 CDT CPT-J3420 Vitamin B12 1000mcg (Cyanocobalamin) 09:06:06 CDT CPT-40320 Abx/Therapy Injection 09:06:06 CDT CPT-J3420 Vitamin B12 1000mcg (Cyanocobalamin) 09:49:14 CDT CPT-63398 Abx/Therapy Injection 09:49:14 CDT CPT-J3420 Vitamin B12 1000mcg (Cyanocobalamin) 09:10:30 [employer] CPT-44910 Abx/Therapy Injection 09:10:30 [employer] CPT-J3420 Vitamin B12 1000mcg (Cyanocobalamin) 09:11:07 [employer] CPT-22363 Abx/Therapy Injection 09:11:07 [employer] CPT-J3420 Vitamin B12 1000mcg (Cyanocobalamin) 09:57:03 [employer] CPT-21511 Abx/Therapy Injection 09:57:03 [employer] CPT-J3420 Vitamin B12 1000mcg (Cyanocobalamin) 09:23:21 [employer] CPT-60368 Abx/Therapy Injection 09:23:21 [employer] CPT-51836 Urine Dip (Floor Use Only) 20:21:44 [employer] 201 02/12/11 CPT-37235 UA Dip Auto (Floor Use Only) 10:04:39 [employer] 2 CPT-24871 Urine Dip (Floor Use Only) 13:27:28 [employer] 201 02/12/01 CPT-18770 Bladder Scan 13:27:28 [employer] CPT-81097 Abd single AP View 14:30:51 [employer] CPT-OV Office Visit 10:15:43 CDT CPT-01167 Urine Dip (Floor Use Only) 17:22:21 CDT 201 02/09/02 CPT-49693 Bladder Scan 17:22:21 CDT
--- OUTSIDE RECORDS SUMMARY | 2020-05-05 12:24 | XMS REPORT | Clinical Summary ---
Author Author Talon, Jeri Wood Organization [employer] Address Unknown Phone Unavailable Allergies, Adverse Reactions, [...] myelitis, and encephalomyelitis Spasticity 781.0 Active Tesfaye Sheramn MD Abnormal involuntary movements Hyperlipidemia 272.4 Refinement [...] Toe pain, right 729.5 Active Chelsea Cardenas CREDIT COLLECTIONS ANALYST Pain in limb Foot pain, right 729.5 Active Chelsea Cardenas CREDIT COLLECTIONS ANALYST Pain in limb Joint pain 719.40 Active Chelsea Cardenas CREDIT COLLECTIONS ANALYST Pain in joint, site unspecified Tobacco abuse [...] tablet by mouth daily 20 20/05/01 FLUCONAZOLE 96479048991 Active Tesfaye Sherman MD Active PREDNISONE 20 MG ORAL TABLET 1 tablet by mouth twice d aily for 3 days, then 1 tablet daily for 3 days PREDNISONE 40551997736 Active Tesfaye Sherman MD Active ZITHROMAX 250 MG ORAL TABLET 2 po today, then 1 po q days 2-5 20 20/04/28 AZITHROMYCIN 60813884006 Active Tesfaye Sherman MD Ac tive MECLIZINE HCL 25 MG ORAL TABLET one tab po qday prn dizziness 20 17/09/06 MECLIZINE HCL 93603427442 No Longer Active Tesfaye Sherman MD Active PROAIR HFA 108 (90 BASE) MCG/ACT INHALATION AEROSOL SO LUTION 1 puff every 6 hours as needed ALBUTEROL SULFATE 25885895826 No Long er Active Tesfaye Sherman MD Active OXYCODONE-ACETAMINOPHEN 5-325 MG ORAL TABLET Take one tablet by mouth every 6 hours as needed. Use sparingly OXYCODONE-ACETAMINOPHEN 87985742757 Active Tesfaye Sherman MD Active PREDNISONE 20 MG ORAL TABLET 1 tab twice daily for 3 d ay, then one daily for three days PREDNISONE 80043479792 No Longer Active Tesfaye Sherman MD Active MECLIZINE HCL 25 MG ORAL TABLET one 4 times a day as needed for dizziness MECLIZINE HCL 31606109947 Active Laurence Dominguez Active DIFLUCAN 100 MG ORAL TABLET 1 tablet by mouth daily FLUCONAZOLE 36934776107 Active Laurence Dominguez Active AMOXICILLIN 500 MG ORAL CAPSULE 1 cap by mouth three times a day AMOXICILLIN 64892012574 No Longer Active Laurence Dominguez Acti ve VENLAFAXINE HCL 75 MG ORAL TABLET 1 am 1/2 at noon VENLAFAXINE HCL 25724678034 Active Tesfaye Sherman MD Active DIFLUCAN 100 MG ORAL TABLET 1 tablet by mouth daily 20 19/08/26 FLUCONAZOLE 49117153520 No Longer Active Tesfaye Sherman MD Acti ve BACTRIM DS 800-160 MG ORAL TABLET 1 tab by mouth twice daily 201 05/10/28 TRIMETHOPRIM-SULFAMETHOXAZOLE 75693083141 No Longer Active Fer Dominguez Active FOSAMAX 70 MG ORAL TABLET 1 po qweek. Take 30min prio r to first food/drink. Avoid lying down x 1 hour. ALENDRONATE SODIUM 00343020 144 No Longer Active Laurence Dominguez Active REPHRESH PRO-B ORAL CAPSULE 1 tablet daily LACT OBACILLUS 36726571163 Active Edith Burch MD Active CYMBALTA 60 MG ORAL CAPSULE DELAYED RELEASE PARTICLES Take 1 tablet by mouth daily DULOXETINE HCL 77913704600 No Longer Active Edith Burch MD Active CYMBALTA 30 MG ORAL CAPSULE DELAYED RELEASE PARTICLES 1 cap by mouth daily with 60mg DULOXETINE HCL 80940183479 No Longer Active Jordan Burch MD Active FISH OIL 1000 MG ORAL CAPSULE DELAYED RELEASE 1 pill b y mouth daily for cholesterol OMEGA-3 FATTY ACIDS 60660207768 Active Cee Jaffe LPN Active RED YEAST RICE 600 MG ORAL CAPSULE 1 pill by mouth daily RED YEAST RICE EXTRACT 47801004351 Active Rosa Jaffe LPN Activ e DIFLUCAN 100 MG ORAL TABLET 1 tablet by mouth daily 20 19/03/05 FLUCONAZOLE 48445157321 No Longer Active Tesfaye Sherman MD Acti ve BACTRIM DS 800-160 MG ORAL TABLET 1 tab by mouth twice daily 201 05/06/28 TRIMETHOPRIM-SULFAMETHOXAZOLE 47826168775 No Longer Active Umer Shemran MD Active BACTRIM DS 800-160 MG ORAL TABLET 1 tab by mouth twice daily 201 05/04/15 TRIMETHOPRIM-SULFAMETHOXAZOLE 21899855307 No Longer Active Umer Sherman MD Active DIFLUCAN 150 MG ORAL TABLET 1 tablet by mouth daily 20 18/09/20 FLUCONAZOLE 24637225480 No Longer Active Tesfaye Sherman MD Acti ve BACTRIM DS 800-160 MG ORAL TABLET 1 tab by mouth twice daily 201 04/13/17 TRIMETHOPRIM-SULFAMETHOXAZOLE 23550781288 No Longer Active Umer Sherman MD Active ROPINIROLE HCL 0.25 MG ORAL TABLET 1 TAB PO Q HS ROPINIROLE HCL 33358945060 Active Tesfaye Sherman MD Active CEFTIN 250 MG ORAL TABLET 1 tablet twice daily x 7 days CEFUROXIME AXETIL 25608555978 No Longer Active Tesfaye Sherman MD Active DIFLUCAN 100 MG ORAL TABLET 1 tablet by mouth every other da y for 2 doses FLUCONAZOLE 93363819525 No Longer Active Tesfaye barron MD Active DIFLUCAN 100 MG ORAL TABLET 1 tablet by mouth daily X 3 DAYS 201 04/09/01 FLUCONAZOLE 24121914256 No Longer Active Rj Lyons tidragan MIRTAZAPINE 15 MG ORAL TABLET 1/2 tab by mouth at bedtime. 03/13 MIRTAZAPINE 14773532850 No Longer Active Tesfaye Sherman MD Active BACTRIM DS 800-160 MG ORAL TABLET 1 tab by mouth twice daily 201 04/09/01 TRIMETHOPRIM-SULFAMETHOXAZOLE 01507571724 No Longer Active Umer Shemran MD Active PRAMIPEXOLE DIHYDROCHLORIDE 0.125 MG ORAL TABLET take 1 tablet po qhs for restless leg syndrome. PRAMIPEXOLE DIHYDROCHLORI DE 77833347766 No Longer Active Tesfaye Sherman MD Active MAGNESIUM 400 MG ORAL TABLET 1 tab po daily MAGNE SIUM 05761770860 Active Chelsea Cardenas APRN Active SUDAFED 24 HOUR 240 MG ORAL TABLET EXTENDED RELEASE 24 HOUR 1 tab po daily PSEUDOEPHEDRINE HCL 40941593734 Active Chelsea Wilfredyvon MERCADO Active CETIRIZINE HCL 5 MG ORAL TABLET Take 1 tablet by mouth daily CETIRIZINE HCL 84270281162 No Longer Active Chelsea Cardenas APRN Activ e TRIMETHOPRIM 100 MG ORAL TABLET 1/2 qd TRIM ETHOPRIM 80351500990 No Longer Active Chelsea Cardenas APRN Active BACTRIM DS 800-160 MG ORAL TABLET 1 tab by mouth twice daily 201 04/04/11 TRIMETHOPRIM-SULFAMETHOXAZOLE 82695283951 No Longer Active Umer Sherman MD Active BACTRIM DS 800-160 MG ORAL TABLET 1 tab by mouth twice daily X 10 DAYS TRIMETHOPRIM-SULFAMETHOXAZOLE 45040292373 No Longer Active Tesfaye Sherman MD Active AMOXICILLIN 500 MG ORAL CAPSULE 1 cap by mouth three times a day AMOXICILLIN 06262263261 No Longer Active Adriana Arredondo Active B-12 1000 MCG ORAL LOZENGE 1 tab po daily CYANO COBALAMIN 25909298270 Active Tesfaye Sherman MD Active VITAMIN D3 2000 UNIT ORAL TABLET 1 daily, for vitamin D deficien cy CHOLECALCIFEROL 58358023648 No Longer Active Tesfaye Sherman MD Active TIZANIDINE HCL 2 MG ORAL TABLET take 1-2 tablet by mo [facility] every day at bedtime at 9pm PRN TIZANIDINE HCL 26971410952 Active Tesfaye hewitt MD Active ZITHROMAX 250 MG ORAL TABLET 2 po today, then 1 po q days 2-5 20 15/02/10 AZITHROMYCIN 25774233263 No Longer Active Tesfaye Sherman MD Active BACTRIM DS 800-160 MG ORAL TABLET 1 tab by mouth twice daily 201 03/03/23 TRIMETHOPRIM-SULFAMETHOXAZOLE 31226161430 No Longer Active Umer Sherman MD Active PRELIEF 340 (65-50) MG (CA-P) ORAL TABLET CALCIUM GLYCEROPHOSPHATE 64922937929 Active Tesfaye Sherman MD Acti ve [facility] NIACIN FLUSH FREE 400-100 MG ORAL CAPSULE 1 daily NIACIN-INOSITOL 63712839903 Active Kayla Cooper MD Activ e DIFLUCAN 150 MG ORAL TABLET 1 qd FLUCONAZOL E 56257947049 No Longer Active Kayla Cooper MD Active FLUTICASONE PROPIONATE 50 MCG/ACT NASAL SUSPENSION 1 spray each nostril twice daily FLUTICASONE PROPIONATE 94305621301 Active D patricia Sherman MD Active LOVASTATIN 20 MG ORAL TABLET Take 1 tablet by mouth daily LOVASTATIN 23939899891 No Longer Active Tesfaye Sherman MD Acti ve MELOXICAM 7.5 MG ORAL TABLET 1 tablet by mouth daily 2 MELOXICAM 50793519296 No Longer Active Tesfaye Sherman MD Acti ve GABAPENTIN 300 MG ORAL CAPSULE Take two tablets by mouth every e vening GABAPENTIN 65832650818 No Longer Active Edith Burch MD A ctive CLONAZEPAM 0.5 MG ORAL TABLET Take one tablet in the m orning and 1.5 tablet at 7pm CLONAZEPAM 33977116444 Active Kayla Cooper MD Active BACLOFEN 10 MG ORAL TABLET Take one tablet by mouth three times a d ay BACLOFEN 75801462596 Active Kayla Cooper MD Active GABAPENTIN 300 MG ORAL CAPSULE Take two tablets by mouth every e vening GABAPENTIN 300 MG ORAL CAPSULE 240115 GABAPENTIN I nactive MELOXICAM 7.5 MG ORAL TABLET 1 tablet by mouth daily 2 MELOXICAM 7.5 MG ORAL TABLET 200242 MELOXICAM Inactive LOVASTATIN 20 MG ORAL TABLET Take 1 tablet by mouth daily LOVASTATIN 20 MG ORAL TABLET 482558 LOVASTATIN Inactive DIFLUCAN 150 MG ORAL TABLET 1 qd DIFLUCAN 150 MG ORAL TABLET 149750 FLUCONAZOLE Inactive VITAMIN D3 2000 UNIT ORAL TABLET 1 daily, for vitamin D deficien cy VITAMIN D3 2000 UNIT ORAL TABLET CHOLECALCIFEROL Inactive AMOXICILLIN 500 MG ORAL CAPSULE 1 cap by mouth three times a day AMOXICILLIN 500 MG ORAL CAPSULE 694754 AMOXICILLIN Inactive BACTRIM DS 800-160 MG ORAL TABLET 1 tab by mouth twice daily X 10 DAYS BACTRIM DS 800-160 MG ORAL TABLET 760352 TRIMETHOPRIM-SULFAMETHOXAZOLE Inactive TRIMETHOPRIM 100 MG ORAL TABLET 1/2 qd 7 TRIMETHOPRIM 100 MG ORAL TABLET 854450 TRIMETHOPRIM Inactive CETIRIZINE HCL 5 MG ORAL TABLET Take 1 tablet by mouth daily CETIRIZINE HCL 5 MG ORAL TABLET 2547103 CETIRIZINE HCL Inactive PRAMIPEXOLE DIHYDROCHLORIDE 0.125 MG ORAL TABLET take 1 tablet po qhs for restless leg syndrome. PRAMIPEXOLE DIHYD ROCHLORIDE 0.125 MG ORAL TABLET 129689 PRAMIPEXOLE DIHYDROCHLORIDE Inactive MIRTAZAPINE 15 MG ORAL TABLET 1/2 tab by mouth at bedtime. 03/13 MIRTAZAPINE 15 MG ORAL TABLET 582878 MIRTAZAPINE In active DIFLUCAN 100 MG ORAL TABLET 1 tablet by mouth daily X 3 DAYS 201 04/09/01 DIFLUCAN 100 MG ORAL TABLET 891235 FLUCONAZOLE Inac tive DIFLUCAN 100 MG ORAL TABLET 1 tablet by mouth every other da y for 2 doses DIFLUCAN 100 MG ORAL TABLET 678250 FLUCONAZOLE Inactive CEFTIN 250 MG ORAL TABLET 1 tablet twice daily x 7 days CEFTIN 250 MG ORAL TABLET CEFUROXIME AXETIL Inactive CYMBALTA 30 MG ORAL CAPSULE DELAYED RELEASE PARTICLES 1 cap by mouth daily with 60mg CYMBALTA 30 MG ORAL CAPSULE DELAYED RELEASE PARTICLES 151326 DULOXETINE HCL Inactive CYMBALTA 60 MG ORAL CAPSULE DELAYED RELEASE PARTICLES Take 1 tablet by mouth daily CYMBALTA 60 MG ORAL CAPSULE DELAYED RELEA SE PARTICLES 813924 DULOXETINE HCL Inactive FOSAMAX 70 MG ORAL TABLET 1 po qweek. Take 30min prio r to first food/drink. Avoid lying down x 1 hour. FOSAMAX 70 MG ORAL TA BLET 877069 ALENDRONATE SODIUM Inactive DIFLUCAN 100 MG ORAL TABLET 1 tablet by mouth daily 19/08/26 DIFLUCAN 100 MG ORAL TABLET 557246 FLUCONAZOLE Inactive PREDNISONE 20 MG ORAL TABLET 1 tab twice daily for 3 d ay, then one daily for three days PREDNISONE 20 MG ORAL TABLET 953834 PREDNIS ONE Inactive PROAIR HFA 108 (90 BASE) MCG/ACT INHALATION AEROSOL SO LUTION 1 puff every 6 hours as needed PROAIR HFA 108 (90 B ASE) MCG/ACT INHALATION AEROSOL SOLUTION ALBUTEROL SULFATE Inactive MECLIZINE HCL 25 MG ORAL TABLET one tab po qday prn dizziness 20 17/09/06 MECLIZINE HCL 25 MG ORAL TABLET 765322 MECLIZINE HCL Inactive BACTRIM DS 800-160 MG ORAL TABLET 1 tab by mouth twice daily 201 03/03/23 BACTRIM DS 800-160 MG ORAL TABLET 19830105 TRIMETHOPRIM-SULFAMETHOXAZOLE Inactive ZITHROMAX 250 MG ORAL TABLET 2 po today, then 1 po q days 2-5 20 15/02/10 ZITHROMAX 250 MG ORAL TABLET 166995 AZITHROMYCIN Milmay ctive BACTRIM DS 800-160 MG ORAL TABLET [...] 05/06/28 BACTRIM DS 800-160 MG ORAL TABLET 516153 TRIMETHOPRIM-SULFAMETHOXAZOLE Inactive DIFLUCAN 100 MG ORAL TABLET 1 tablet by mouth daily 20 19/03/05 DIFLUCAN 100 MG ORAL TABLET 535845 FLUCONAZOLE Inactive BACTRIM DS 800-160 MG ORAL TABLET 1 tab by mouth twice daily 201 05/10/28 BACTRIM DS 800-160 MG ORAL TABLET 421365 TRIMETHOPRIM-SULFAMETHOXAZOLE Inactive AMOXICILLIN 500 MG ORAL CAPSULE 1 cap by mouth three times a day AMOXICILLIN 500 MG ORAL CAPSULE 031578 AMOXICILLIN Inactive Advance Directives Directive Description Start Date PERMISSION TO SHARE DISCUSSED WITH PATIENT -- NO DECISION MADE DURABLE POWER OF SUPERVISOR FERTILIZER PROCESSING FOR HEALTHCARE DISCUSED WITH PATIENT -- FULL [...] (E&M) Negative Lab Report: [facility] Chemistry sodium, serum 141 mmol/L 150-528 1592/01/26 carbon dioxide, venous blood 29.5 mmol/L 21.0-32 [...] mg/dL Encounters Code Encounter Date Provider Facility [id number] Vst-Est Level III 09:40:56 CDT Tesfaye Sherman MD [facility] CPT-96124 Level 4 Est. Patient 22:18:12 CDT Tesfaye pearson MD [facility] CPT-79608 Level 4 Est. Patient 14:44:33 DEVELOPMENTAL TRAINING COUNSELOR Tesfaye pearson MD [facility] CPT-24874 Level 4 Est. Patient 13:55:29 DEVELOPMENTAL TRAINING COUNSELOR Tesfaye pearson MD [facility] CPT-75162 Level 4 Est. Patient 17:07:34 DEVELOPMENTAL TRAINING COUNSELOR Tesfaye pearson MD [facility] CPT-87562 Level 4 Est. Patient 13:56:54 CDT Tesfaye pearson MD [facility] CPT-22440 Level 4 Est. Patient 13:24:25 CDT Chelsea sanz APRN [facility] CPT-44368 Level 4 Est. Patient 09:14:56 CDT Tesfaye pearson MD [facility] CPT-54793 Level 4 Est. Patient 18:40:25 DEVELOPMENTAL TRAINING COUNSELOR [facility] Patient 18:13:07 DEVELOPMENTAL TRAINING COUNSELOR Tesfaye pearson MD [facility]-25080 Level 3 Est. Patient 10:46:32 CDT Rj cotto DO [facility]-59422 Level 4 Est. Patient 20:19:25 CDT Tesfaye pearson MD [facility]-34939 Level 3 Est. Patient 09:07:31 CDT Tesfaye pearson MD [facility]-83617 Level 4 Est. Patient 13:12:56 CDT Tesfaye pearson MD [facility]-62250 Level 4 Est. Patient 21:24:55 DEVELOPMENTAL TRAINING COUNSELOR Tesfaye pearson MD [facility]-26084 Level 3 Est. Patient 13:45:04 DEVELOPMENTAL TRAINING COUNSELOR Tesfaye pearson MD [facility] CPT-16518 Level 4 Est. Patient 13:50:45 CDT Tesfaye pearson MD [facility] CPT-83336 Level 3 Est. Patient 10:16:10 CDT Tesfaye pearson MD [facility] CPT-80585 Level 3 Est. Patient 16:36:07 DEVELOPMENTAL TRAINING COUNSELOR Kayla jameson MD [facility]-66915 Level 4 Est. Patient 16:00:14 DEVELOPMENTAL TRAINING COUNSELOR Tesfaye pearson MD [facility]-73793 Level 4 Est. Patient 11:02:24 DEVELOPMENTAL TRAINING COUNSELOR Tesfaye pearson MD [facility]-14397 Level 3 Est. Patient 20:21:43 DEVELOPMENTAL TRAINING COUNSELOR Kayla jameson MD [facility]-13901 Level 3 Est. Patient 13:27:28 DEVELOPMENTAL TRAINING COUNSELOR Kayla jameson MD [facility]-03096 Level 4 Est. Patient 15:57:17 DEVELOPMENTAL TRAINING COUNSELOR Tesfaye pearson MD [facility] CPT-42195 Level 3 New Patient 13:25:47 CDT Tesfaye kidd MD [facility] CPT-64487 Level 3 New Patient 17:22:21 CDT Kayla angel MD [facility] Procedures Code Procedure Name Date Entry Date Standard Desc ription CPT-G0439 Subsequent Annual Wellness Exam 22:18:11 CDT CPT-30503 Bone Density - XRAY USE ONLY 11:43:58 CDT 2 CPT-51101 Bone Density - XRAY USE ONLY 10:05:16 CDT 2 CPT-44007 Prv Med New Pt 40-64 yrs 18:19:25 CDT 2016 CPT-75710 Foot, right, comp min 3V - XRAY USE ONLY 10:38:34 CDT CPT-G0439 Subsequent Annual Wellness Exam 13:55:04 CDT CPT-G0438 Initial Annual Wellness Exam 11:23:17 CD T CPT-J2930 Solu Medrol 125 mg (Methyl Prednisolone Sodium Succinate) 17:29:12 DEVELOPMENTAL TRAINING COUNSELOR CPT-75192 Abx/Therapy Injection 17:29:11 DEVELOPMENTAL TRAINING COUNSELOR CPT-J2930 Solu Medrol 125 mg (Methyl Prednisolone Sodium Succinate) 12:34:38 DEVELOPMENTAL TRAINING COUNSELOR CPT-J3420 Vitamin B12 1000mcg (Cyanocobalamin) 09:12:55 CDT CPT-J3420 Vitamin B12 1000mcg (Cyanocobalamin) 16:28:06 DEVELOPMENTAL TRAINING COUNSELOR CPT-98999 Venipuncture Draw Fee 08:39:53 CDT CPT-J3420 Vitamin B12 1000mcg (Cyanocobalamin) 08:46:22 CDT CPT-99135 Abx/Therapy Injection 08:46:22 CDT CPT-J3420 Vitamin B12 1000mcg (Cyanocobalamin) 08:41:26 CDT CPT-36501 Abx/Therapy Injection 08:41:26 CDT CPT-J3420 Vitamin B12 1000mcg (Cyanocobalamin) 08:57:15 CDT CPT-28633 Abx/Therapy Injection 08:57:15 CDT CPT-J3420 Vitamin B12 1000mcg (Cyanocobalamin) 10:59:03 CDT CPT-33151 Abx/Therapy Injection 10:59:03 CDT CPT-J3420 Vitamin B12 1000mcg (Cyanocobalamin) 15:05:39 CDT CPT-92372 Abx/Therapy Injection 15:05:39 CDT CPT-J3420 Vitamin B12 1000mcg (Cyanocobalamin) 13:50:45 CDT CPT-J3420 Vitamin B12 1000mcg (Cyanocobalamin) 08:48:55 CDT CPT-99922 Abx/Therapy Injection 08:48:55 CDT CPT-J3420 Vitamin B12 1000mcg (Cyanocobalamin) 09:14:54 CDT CPT-00455 Abx/Therapy Injection 09:14:54 CDT CPT-J3420 Vitamin B12 1000mcg (Cyanocobalamin) 09:06:06 CDT CPT-71123 Abx/Therapy Injection 09:06:06 CDT CPT-J3420 Vitamin B12 1000mcg (Cyanocobalamin) 09:49:14 CDT CPT-87864 Abx/Therapy Injection 09:49:14 CDT CPT-J3420 Vitamin B12 1000mcg (Cyanocobalamin) 09:10:30 DEVELOPMENTAL TRAINING COUNSELOR CPT-34644 Abx/Therapy Injection 09:10:30 DEVELOPMENTAL TRAINING COUNSELOR CPT-J3420 Vitamin B12 1000mcg (Cyanocobalamin) 09:11:07 DEVELOPMENTAL TRAINING COUNSELOR CPT-08828 Abx/Therapy Injection 09:11:07 DEVELOPMENTAL TRAINING COUNSELOR CPT-J3420 Vitamin B12 1000mcg (Cyanocobalamin) 09:57:03 DEVELOPMENTAL TRAINING COUNSELOR CPT-67652 Abx/Therapy Injection 09:57:03 DEVELOPMENTAL TRAINING COUNSELOR CPT-J3420 Vitamin B12 1000mcg (Cyanocobalamin) 09:23:21 DEVELOPMENTAL TRAINING COUNSELOR CPT-64727 Abx/Therapy Injection 09:23:21 DEVELOPMENTAL TRAINING COUNSELOR CPT-28539 Urine Dip (Floor Use Only) 20:21:44 DEVELOPMENTAL TRAINING COUNSELOR 201 02/12/11 CPT-93598 UA Dip Auto (Floor Use Only) 10:04:39 DEVELOPMENTAL TRAINING COUNSELOR 2 CPT-51714 Urine Dip (Floor Use Only) 13:27:28 DEVELOPMENTAL TRAINING COUNSELOR 201 02/12/01 CPT-71835 Bladder Scan 13:27:28 DEVELOPMENTAL TRAINING COUNSELOR CPT-37425 Abd single AP View 14:30:51 DEVELOPMENTAL TRAINING COUNSELOR CPT-OV Office Visit 10:15:43 CDT CPT-10970 Urine Dip (Floor Use Only) 17:22:21 CDT 201 02/09/02 CPT-22341 Bladder Scan 17:22:21 CDT
--- OUTSIDE RECORDS SUMMARY | 2020-05-05 12:25 | XMS REPORT | Clinical Summary ---
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 Use sparingly OXYCODONE-ACETAMINOPHEN 23557048616 Active Tesfaye Sherman MD Active PREDNISONE 20 MG ORAL TABLET 1 tab twice daily for 3 d ay, then one daily for three days PREDNISONE 61531750004 No Longer Active Tesfaye Sherman MD Active PROAIR HFA 108 (90 BASE) MCG/ACT INHALATION AEROSOL SO LUTION 1 puff every 6 hours as needed ALBUTEROL SULFATE 84718491179 Active Hanna nda Raida Active MECLIZINE HCL 25 MG ORAL TABLET one 4 times a day as needed for dizziness MECLIZINE HCL 84934995100 Active Laurence Raduyen Active DIFLUCAN 100 MG ORAL TABLET 1 tablet by mouth daily FLUCONAZOLE 85178533304 Active Laurenceyohana Dominguez Active AMOXICILLIN 500 MG ORAL CAPSULE 1 cap by mouth three times a day AMOXICILLIN 53541360408 No Longer Active Laurenceyohana Dominguez Acti ve VENLAFAXINE HCL 75 MG ORAL TABLET 1 am 1/2 at noon VENLAFAXINE HCL 95663173285 Active Tesfaye Sherman MD Active DIFLUCAN 100 MG ORAL TABLET 1 tablet by mouth daily 20 19/08/26 FLUCONAZOLE 96541426803 No Longer Active Tesfaye Sherman MD Acti ve BACTRIM DS 800-160 MG ORAL TABLET 1 tab by mouth twice daily 201 05/10/28 TRIMETHOPRIM-SULFAMETHOXAZOLE 15789499160 No Longer Active A mirna Dominguez Active FOSAMAX 70 MG ORAL TABLET 1 po qweek. Take 30min prio r to first food/drink. Avoid lying down x 1 hour. ALENDRONATE SODIUM 69178665 144 No Longer Active Laurecne Raida Active REPHRESH PRO-B ORAL CAPSULE 1 tablet daily LACT OBACILLUS 87057879969 Active Edith Burch MD Active CYMBALTA 60 MG ORAL CAPSULE DELAYED RELEASE PARTICLES Take 1 tablet by mouth daily DULOXETINE HCL 65776340548 No Longer Active Edith Burch MD Active CYMBALTA 30 MG ORAL CAPSULE DELAYED RELEASE PARTICLES 1 cap by mouth daily with 60mg DULOXETINE HCL 31195772880 No Longer Active Jordan Burch MD Active FISH OIL 1000 MG ORAL CAPSULE DELAYED RELEASE 1 pill b y mouth daily for cholesterol OMEGA-3 FATTY ACIDS 24076258422 Active Cee Jaffe LPN Active RED YEAST RICE 600 MG ORAL CAPSULE 1 pill by mouth daily RED YEAST RICE EXTRACT 64964478313 Active Rosa Jaffe LPN Activ e DIFLUCAN 100 MG ORAL TABLET 1 tablet by mouth daily 20 19/03/05 FLUCONAZOLE 15057752165 No Longer Active Tesfaye Sherman MD Acti ve BACTRIM DS 800-160 MG ORAL TABLET 1 tab by mouth twice daily 201 05/06/28 TRIMETHOPRIM-SULFAMETHOXAZOLE 18102396974 No Longer Active Umer Sherman MD Active BACTRIM DS 800-160 MG ORAL TABLET 1 tab by mouth twice daily 201 05/04/15 TRIMETHOPRIM-SULFAMETHOXAZOLE 95907979034 No Longer Active Umer Sherman MD Active DIFLUCAN 150 MG ORAL TABLET 1 tablet by mouth daily 20 18/09/20 FLUCONAZOLE 94992795410 No Longer Active Tesfaye Sherman MD Acti ve BACTRIM DS 800-160 MG ORAL TABLET 1 tab by mouth twice daily 201 04/13/17 TRIMETHOPRIM-SULFAMETHOXAZOLE 86847890529 No Longer Active Umer Sherman MD Active ROPINIROLE HCL 0.25 MG ORAL TABLET 1 TAB PO Q HS ROPINIROLE HCL 41654315351 Active Tesfaye Sherman MD Active CEFTIN 250 MG ORAL TABLET 1 tablet twice daily x 7 days CEFUROXIME AXETIL 58110381744 No Longer Active Tesfaye Sherman MD Active DIFLUCAN 100 MG ORAL TABLET 1 tablet by mouth every other da y for 2 doses FLUCONAZOLE 22237900593 No Longer Active Tesfaye barron MD Active DIFLUCAN 100 MG ORAL TABLET 1 tablet by mouth daily X 3 DAYS 201 04/09/01 FLUCONAZOLE 15192985433 No Longer Active Rj Lyons tive MIRTAZAPINE 15 MG ORAL TABLET 1/2 tab by mouth at bedtime. 03/13 MIRTAZAPINE 70325296655 No Longer Active Tesfaye Sherman MD Active BACTRIM DS 800-160 MG ORAL TABLET 1 tab by mouth twice daily 201 04/09/01 TRIMETHOPRIM-SULFAMETHOXAZOLE 44625535590 No Longer Active Umer Sherman MD Active PRAMIPEXOLE DIHYDROCHLORIDE 0.125 MG ORAL TABLET take 1 tablet po qhs for restless leg syndrome. PRAMIPEXOLE DIHYDROCHLORI DE 84317361765 No Longer Active Tesfaye Sherman MD Active MAGNESIUM 400 MG ORAL TABLET 1 tab po daily MAGNE SIUM 02966843204 Active Chelsea Cardenas APRN Active SUDAFED 24 HOUR 240 MG ORAL TABLET EXTENDED RELEASE 24 HOUR 1 tab po daily PSEUDOEPHEDRINE HCL 25610596798 Active Chelsea Cardenas APRN Active CETIRIZINE HCL 5 MG ORAL TABLET Take 1 tablet by mouth daily CETIRIZINE HCL 71338786003 No Longer Active Chelsea Cardenas APRN Activ e TRIMETHOPRIM 100 MG ORAL TABLET 1/2 qd TRIM ETHOPRIM 45598607117 No Longer Active Chelsea Cardenas APRN Active BACTRIM DS 800-160 MG ORAL TABLET 1 tab by mouth twice daily 201 04/04/11 TRIMETHOPRIM-SULFAMETHOXAZOLE 21744546644 No Longer Active Umer Sherman MD Active BACTRIM DS 800-160 MG ORAL TABLET 1 tab by mouth twice daily X 10 DAYS TRIMETHOPRIM-SULFAMETHOXAZOLE 62214793131 No Longer Active Tesfaye Sherman MD Active AMOXICILLIN 500 MG ORAL CAPSULE 1 cap by mouth three times a day AMOXICILLIN 38535903071 No Longer Active Adriana Arredondo Active MECLIZINE HCL 25 MG ORAL TABLET one tab po qday prn dizziness 09/08 MECLIZINE HCL 37595913372 Active Tesfaye Sherman MD Active B-12 1000 MCG ORAL LOZENGE 1 tab po daily CYANO COBALAMIN 18306188378 Active Tesfaye Sherman MD Active VITAMIN D3 2000 UNIT ORAL TABLET 1 daily, for vitamin D deficien cy CHOLECALCIFEROL 42177956934 No Longer Active Tesfaye Sherman MD Active TIZANIDINE HCL 2 MG ORAL TABLET take 1-2 tablet by mo ut every day at bedtime at 9pm PRN TIZANIDINE HCL 92168760517 Active Tesfaye hewitt MD Active ZITHROMAX 250 MG ORAL TABLET 2 po today, then 1 po q days 2-5 20 15/02/10 AZITHROMYCIN 21993880647 No Longer Active Tesfaye Sherman MD Active BACTRIM DS 800-160 MG ORAL TABLET 1 tab by mouth twice daily 201 03/03/23 TRIMETHOPRIM-SULFAMETHOXAZOLE 17025355538 No Longer Active Umer Sherman MD Active PRELIEF 340 (65-50) MG (CA-P) ORAL TABLET CALCIUM GLYCEROPHOSPHATE 31032404843 Active Tesfaye Sherman MD Acti ve [facility] NIACIN FLUSH FREE 400-100 MG ORAL CAPSULE 1 daily NIACIN-INOSITOL 57843608321 Active Kayla Cooper MD Activ e DIFLUCAN 150 MG ORAL TABLET 1 qd FLUCONAZOL E 85323576464 No Longer Active Kayla Cooper MD Active FLUTICASONE PROPIONATE 50 MCG/ACT NASAL SUSPENSION 1 spray each nostril twice daily FLUTICASONE PROPIONATE 90062057055 Active Umer Sherman MD Active LOVASTATIN 20 MG ORAL TABLET Take 1 tablet by mouth daily LOVASTATIN 37761652596 No Longer Active Tesfaye Sherman MD Acti ve MELOXICAM 7.5 MG ORAL TABLET 1 tablet by mouth daily 2 MELOXICAM 46993409693 No Longer Active Tesfaye Sherman MD Acti ve GABAPENTIN 300 MG ORAL CAPSULE Take two tablets by mouth every e vening GABAPENTIN 76840423052 No Longer Active Edith Burch MD A ctive CLONAZEPAM 0.5 MG ORAL TABLET Take one tablet in the m orning and 1.5 tablet at 7pm CLONAZEPAM 74447964069 Active Kayla Cooper MD Active BACLOFEN 10 MG ORAL TABLET Take one tablet by mouth three times a d ay BACLOFEN 34284925464 Active Kayla Cooper MD Active GABAPENTIN 300 MG ORAL CAPSULE Take two tablets by mouth every e vening GABAPENTIN 300 MG ORAL CAPSULE 414503 GABAPENTIN I nactive MELOXICAM 7.5 MG ORAL TABLET 1 tablet by mouth daily 2 MELOXICAM 7.5 MG ORAL TABLET 703015 MELOXICAM Inactive LOVASTATIN 20 MG ORAL TABLET Take 1 tablet by mouth daily LOVASTATIN 20 MG ORAL TABLET 227890 LOVASTATIN Inactive DIFLUCAN 150 MG ORAL TABLET 1 qd DIFLUCAN 150 MG ORAL TABLET 061797 FLUCONAZOLE Inactive VITAMIN D3 2000 UNIT ORAL TABLET 1 daily, for vitamin D deficien cy VITAMIN D3 2000 UNIT ORAL TABLET CHOLECALCIFEROL Inactive AMOXICILLIN 500 MG ORAL CAPSULE 1 cap by mouth three times a day AMOXICILLIN 500 MG ORAL CAPSULE 909418 AMOXICILLIN Inactive BACTRIM DS 800-160 MG ORAL TABLET 1 tab by mouth twice daily X 10 DAYS BACTRIM DS 800-160 MG ORAL TABLET 929402 TRIMETHOPRIM-SULFAMETHOXAZOLE Inactive TRIMETHOPRIM 100 MG ORAL TABLET 1/2 qd 7 TRIMETHOPRIM 100 MG ORAL TABLET 972515 TRIMETHOPRIM Inactive CETIRIZINE HCL 5 MG ORAL TABLET Take 1 tablet by mouth daily CETIRIZINE HCL 5 MG ORAL TABLET 3193086 CETIRIZINE HCL Inactive PRAMIPEXOLE DIHYDROCHLORIDE 0.125 MG ORAL TABLET take 1 tablet po qhs for restless leg syndrome. PRAMIPEXOLE DIHYD ROCHLORIDE 0.125 MG ORAL TABLET 782562 PRAMIPEXOLE DIHYDROCHLORIDE Inactive MIRTAZAPINE 15 MG ORAL TABLET 1/2 tab by mouth at bedtime. 03/13 MIRTAZAPINE 15 MG ORAL TABLET 079009 MIRTAZAPINE In active DIFLUCAN 100 MG ORAL TABLET 1 tablet by mouth daily X 3 DAYS 201 04/09/01 DIFLUCAN 100 MG ORAL TABLET 396077 FLUCONAZOLE Inac tive DIFLUCAN 100 MG ORAL TABLET 1 tablet by mouth every other da y for 2 doses DIFLUCAN 100 MG ORAL TABLET 808831 FLUCONAZOLE Inactive CEFTIN 250 MG ORAL TABLET 1 tablet twice daily x 7 days CEFTIN 250 MG ORAL TABLET CEFUROXIME AXETIL Inactive CYMBALTA 30 MG ORAL CAPSULE DELAYED RELEASE PARTICLES 1 cap by mouth daily with 60mg CYMBALTA 30 MG ORAL CAPSULE DELAYED RELEASE PARTICLES 526147 DULOXETINE HCL Inactive CYMBALTA 60 MG ORAL CAPSULE DELAYED RELEASE PARTICLES Take 1 tablet by mouth daily CYMBALTA 60 MG ORAL CAPSULE DELAYED RELEA SE PARTICLES 720102 DULOXETINE HCL Inactive FOSAMAX 70 MG ORAL TABLET 1 po qweek. Take 30min prio r to first food/drink. Avoid lying down x 1 hour. FOSAMAX 70 MG ORAL TA BLET 772641 ALENDRONATE SODIUM Inactive DIFLUCAN 100 MG ORAL TABLET 1 tablet by mouth daily 20 19/08/26 DIFLUCAN 100 MG ORAL TABLET 554167 FLUCONAZOLE Inactive PREDNISONE 20 MG ORAL TABLET 1 tab twice daily for 3 d ay, then one daily for three days PREDNISONE 20 MG ORAL TABLET 189226 PREDNIS ONE Inactive BACTRIM DS 800-160 MG ORAL TABLET 1 tab by mouth twice daily 201 03/03/23 BACTRIM DS 800-160 MG ORAL TABLET 948332 TRIMETHOPRIM-SULFAMETHOXAZOLE Inactive ZITHROMAX 250 MG ORAL TABLET 2 po today, then 1 po q days 2-5 20 15/02/10 ZITHROMAX 250 MG ORAL TABLET 584702 AZITHROMYCIN Mayela ctive BACTRIM DS 800-160 MG [...] daily 19/03/05 DIFLUCAN 100 MG ORAL TABLET 19760711 FLUCONAZOLE Inactive BACTRIM DS 800-160 MG ORAL TABLET 1 tab by mouth twice daily 201 05/10/28 BACTRIM DS 800-160 MG ORAL TABLET 19830105 TRIMETHOPRIM-SULFAMETHOXAZOLE Inactive AMOXICILLIN 500 MG ORAL CAPSULE 1 cap by mouth three times a day AMOXICILLIN 500 MG ORAL CAPSULE 427450 AMOXICILLIN Inactive Advance Directives Directive Description Start Date PERMISSION TO SHARE DISCUSSED WITH PATIENT -- NO DECISION MADE DURABLE POWER OF TEST ARCHITECT FOR HEALTHCARE DISCUSED WITH PATIENT -- FULL [...] sium - Chemistry sodium, serum 141 mmol/L 439-707 7967/01/26 carbon dioxide, venous blood 29.5 mmol/L 21.0-32 [...] mg/dL Encounters Code Encounter Date Provider Facility CPT-[id number] Level 4 Est. Patient 22:18:12 CDT Tesfaye pearson MD [facility] CPT-69020 Level 4 Est. 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 Patient 13:55:29 SLEEVE MACHINE TENDER Tesfaye pearson MD [facility] CPT-58219 Level 4 Est. Patient 17:07:34 SLEEVE MACHINE TENDER Tesfaye pearson MD [facility] CPT-02698 Level 4 Est. Patient 13:56:54 CDT Tesfaye pearson MD [facility] CPT-32846 Level 4 Est. Patient 13:24:25 CDT Chelsea sanz APRN [facility] CPT-79964 Level 4 Est. Patient 09:14:56 CDT Tesfaye pearson MD [facility]-82876 Level 4 Est. Patient 18:40:25 [employer]EVE MACHINE TENDER Tesfaye pearson MD [facility] CPT-82642 Level 4 Est. Patient 18:13:07 SLEEVE MACHINE TENDER Tesfaye pearson MD [facility]-94927 Level 3 Est. Patient 10:46:32 CDT Rj cotto DO [facility] CPT-61217 Level 4 Est. Patient 20:19:25 CDT Tesfaye pearson MD [facility]-18826 Level 3 Est. Patient 09:07:31 CDT Tesfaye pearson MD [facility]-63988 Level 4 Est. Patient 13:12:56 CDT Tesfaye pearson MD [facility] CPT-46897 Level 4 Est. Patient 21:24:55 [employer] MACHINE TENDER Tesfaye pearson MD [facility]-39738 Level 3 Est. Patient 13:45:04 SLEEVE MACHINE TENDER Tesfaye pearson MD [facility] CPT-46359 Level 4 Est. Patient 13:50:45 CDT Tefsaye pearson MD [facility] CPT-89176 Level 3 Est. Patient 10:16:10 CDT Tesfyae pearson MD [facility] CPT-32345 Level 3 Est. 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 Patient 16:00:14 SLEEVE MACHINE TENDER Tesfaye pearson MD [facility]-91139 Level 4 Est. Patient 11:02:24 SLEEVE MACHINE TENDER Tesfaye pearson MD [facility]-87259 Level 3 Est. Patient 20:21:43 SLEEVE MACHINE TENDER Kayla jameson MD [facility] CPT-95893 Level 3 Est. Patient 13:27:28 SLEEVE MACHINE TENDER Kayla jameson MD [facility] CPT-85539 Level 4 Est. Patient 15:57:17 SLEEVE MACHINE TENDER Tesfaye pearson MD [facility] CPT-97549 Level 3 New Patient 13:25:47 CDT Tesfaye kidd MD [facility] CPT-86413 Level 3 New Patient 17:22:21 CDT Kayla angel MD [facility] Procedures Code Procedure Name Date Entry Date Standard Desc ription CPT-G0439 Subsequent Annual Wellness Exam 22:18:11 CDT CPT-62485 Bone Density - XRAY USE ONLY 11:43:58 CDT 2 CPT-00539 Bone Density - XRAY USE ONLY 10:05:16 CDT 2 CPT-98989 Prv Med New Pt 40-64 yrs 18:19:25 CDT 2016 CPT-76843 Foot, right, comp min 3V - XRAY USE ONLY 10:38:34 CDT CPT-G0439 Subsequent Annual Wellness Exam 13:55:04 CDT CPT-G0438 Initial Annual Wellness Exam 11:23:17 CD T CPT-J2930 Solu Medrol 125 mg (Methyl Prednisolone Sodium Succinate) 17:29:12 [employer] MACHINE [employer] CPT-04854 Abx/Therapy Injection 17:29:11 SLEEVE MACHINE TENDER CPT-J2930 Solu Medrol 125 mg (Methyl Prednisolone Sodium Succinate) 12:34:38 SLEEVE MACHINE TENDER CPT-J3420 Vitamin B12 1000mcg (Cyanocobalamin) 09:12:55 CDT CPT-J3420 Vitamin B12 1000mcg (Cyanocobalamin) 16:28:06 [employer]E MACHINE TENDER CPT-26496 Venipuncture Draw Fee 08:39:53 CDT CPT-J3420 Vitamin B12 1000mcg (Cyanocobalamin) 08:46:22 CDT CPT-94872 Abx/Therapy Injection 08:46:22 CDT CPT-J3420 Vitamin B12 1000mcg (Cyanocobalamin) 08:41:26 CDT CPT-39035 Abx/Therapy Injection 08:41:26 CDT CPT-J3420 Vitamin B12 1000mcg (Cyanocobalamin) 08:57:15 CDT CPT-94276 Abx/Therapy Injection 08:57:15 CDT CPT-J3420 Vitamin B12 1000mcg (Cyanocobalamin) 10:59:03 CDT CPT-17339 Abx/Therapy Injection 10:59:03 CDT CPT-J3420 Vitamin B12 1000mcg (Cyanocobalamin) 15:05:39 CDT CPT-61700 Abx/Therapy Injection 15:05:39 CDT CPT-J3420 Vitamin B12 1000mcg (Cyanocobalamin) 13:50:45 CDT CPT-J3420 Vitamin B12 1000mcg (Cyanocobalamin) 08:48:55 CDT CPT-47707 Abx/Therapy Injection 08:48:55 CDT CPT-J3420 Vitamin B12 1000mcg (Cyanocobalamin) 09:14:54 CDT CPT-77372 Abx/Therapy Injection 09:14:54 CDT CPT-J3420 Vitamin B12 1000mcg (Cyanocobalamin) 09:06:06 CDT CPT-83981 Abx/Therapy Injection 09:06:06 CDT CPT-J3420 Vitamin B12 1000mcg (Cyanocobalamin) 09:49:14 CDT CPT-55468 Abx/Therapy Injection 09:49:14 CDT CPT-J3420 Vitamin B12 1000mcg (Cyanocobalamin) 09:10:30 [employer]E MACHINE TENDER CPT-72075 Abx/Therapy Injection 09:10:30 SLEEVE MACHINE TENDER CPT-J3420 Vitamin B12 1000mcg (Cyanocobalamin) 09:11:07 SLEEVE MACHINE TENDER CPT-77842 Abx/Therapy Injection 09:11:07 SLEEVE MACHINE TENDER CPT-J3420 Vitamin B12 1000mcg (Cyanocobalamin) 09:57:03 SLEEVE MACHINE TENDER CPT-12498 Abx/Therapy Injection 09:57:03 SLEEVE MACHINE TENDER CPT-J3420 Vitamin B12 1000mcg (Cyanocobalamin) 09:23:21 SLEEVE MACHINE TENDER CPT-75501 Abx/Therapy Injection 09:23:21 SLEEVE MACHINE TENDER CPT-05353 Urine Dip (Floor Use Only) 20:21:44 SLEEVE MACHINE TENDER 201 02/12/11 CPT-03501 UA Dip Auto (Floor Use Only) 10:04:39 SLEEVE MACHINE TENDER 2 CPT-19607 Urine Dip (Floor Use Only) 13:27:28 SLEEVE MACHINE TENDER 201 02/12/01 CPT-75592 Bladder Scan 13:27:28 SLEEVE MACHINE TENDER CPT-68944 Abd single AP View 14:30:51 SLEEVE MACHINE TENDER CPT-OV Office Visit 10:15:43 CDT CPT-22545 Urine Dip (Floor Use Only) 17:22:21 CDT 201 02/09/02 CPT-91767 Bladder Scan 17:22:21 CDT
--- OUTSIDE RECORDS SUMMARY | 2020-05-05 12:25 | XMS REPORT | Clinical Summary ---
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 Use sparingly OXYCODONE-ACETAMINOPHEN 99598628855 Active Tesfaye Sherman MD Active PREDNISONE 20 MG ORAL TABLET 1 tab twice daily for 3 d ay, then one daily for three days PREDNISONE 40864830753 No Longer Active Tesfaye Sherman MD Active PROAIR HFA 108 (90 BASE) MCG/ACT INHALATION AEROSOL SO LUTION 1 puff every 6 hours as needed ALBUTEROL SULFATE 60003620963 Active [place] nda Raida Active MECLIZINE HCL 25 MG ORAL TABLET one 4 times a day as needed for dizziness MECLIZINE HCL 09618512667 Active Laurence Raida Active DIFLUCAN 100 MG ORAL TABLET 1 tablet by mouth daily FLUCONAZOLE 10541678107 Active Laurence Raida Active AMOXICILLIN 500 MG ORAL CAPSULE 1 cap by mouth three times a day AMOXICILLIN 91465457083 No Longer Active Laurence Raida Acti ve VENLAFAXINE HCL 75 MG ORAL TABLET 1 am 1/2 at noon VENLAFAXINE HCL 97255056101 Active Tesfaye Sherman MD Active DIFLUCAN 100 MG ORAL TABLET 1 tablet by mouth daily 20 19/08/26 FLUCONAZOLE 81828416309 No Longer Active Tesfaye Sherman MD Acti ve BACTRIM DS 800-160 MG ORAL TABLET 1 tab by mouth twice daily 201 05/10/28 TRIMETHOPRIM-SULFAMETHOXAZOLE 63990949221 No Longer Active Fer mirna Angelica Active FOSAMAX 70 MG ORAL TABLET 1 po qweek. Take 30min prio r to first food/drink. Avoid lying down x 1 hour. ALENDRONATE SODIUM 78458582 144 No Longer Active Laurence Lopezduyen Active REPHRESH PRO-B ORAL CAPSULE 1 tablet daily LACT OBACILLUS 66983022075 Active Edith Burch MD Active CYMBALTA 60 MG ORAL CAPSULE DELAYED RELEASE PARTICLES Take 1 tablet by mouth daily DULOXETINE HCL 48095155843 No Longer Active Edith Burch MD Active CYMBALTA 30 MG ORAL CAPSULE DELAYED RELEASE PARTICLES 1 cap by mouth daily with 60mg DULOXETINE HCL 18906330502 No Longer Active Jordan Burch MD Active FISH OIL 1000 MG ORAL CAPSULE DELAYED RELEASE 1 pill b y mouth daily for cholesterol OMEGA-3 FATTY ACIDS 51844719260 Active Cee Jaffe LPN Active RED YEAST RICE 600 MG ORAL CAPSULE 1 pill by mouth daily RED YEAST RICE EXTRACT 10338002590 Active Rosa Jaffe LPN Activ e DIFLUCAN 100 MG ORAL TABLET 1 tablet by mouth daily 20 19/03/05 FLUCONAZOLE 53266202094 No Longer Active Tesfaye Sherman MD Acti ve BACTRIM DS 800-160 MG ORAL TABLET 1 tab by mouth twice daily 201 05/06/28 TRIMETHOPRIM-SULFAMETHOXAZOLE 70202715967 No Longer Active Umer Sherman MD Active BACTRIM DS 800-160 MG ORAL TABLET 1 tab by mouth twice daily 201 05/04/15 TRIMETHOPRIM-SULFAMETHOXAZOLE 13637032005 No Longer Active Umer Sherman MD Active DIFLUCAN 150 MG ORAL TABLET 1 tablet by mouth daily 20 18/09/20 FLUCONAZOLE 73139914513 No Longer Active Tesfaye Sherman MD Acti ve BACTRIM DS 800-160 MG ORAL TABLET 1 tab by mouth twice daily 201 04/13/17 TRIMETHOPRIM-SULFAMETHOXAZOLE 19520853564 No Longer Active Umer Sherman MD Active ROPINIROLE HCL 0.25 MG ORAL TABLET 1 TAB PO Q HS ROPINIROLE HCL 63737830059 Active Tesfaye Sherman MD Active CEFTIN 250 MG ORAL TABLET 1 tablet twice daily x 7 days CEFUROXIME AXETIL 80183724339 No Longer Active Tesfaye Sherman MD Active DIFLUCAN 100 MG ORAL TABLET 1 tablet by mouth every other da y for 2 doses FLUCONAZOLE 27274532350 No Longer Active Tesfaye barron MD Active DIFLUCAN 100 MG ORAL TABLET 1 tablet by mouth daily X 3 DAYS 201 04/09/01 FLUCONAZOLE 88373533868 No Longer Active Rj Lyons tive MIRTAZAPINE 15 MG ORAL TABLET 1/2 tab by mouth at bedtime. 03/13 MIRTAZAPINE 37712234415 No Longer Active Tesfaye Sherman MD Active BACTRIM DS 800-160 MG ORAL TABLET 1 tab by mouth twice daily 201 04/09/01 TRIMETHOPRIM-SULFAMETHOXAZOLE 55747111415 No Longer Active Umer Sherman MD Active PRAMIPEXOLE DIHYDROCHLORIDE 0.125 MG ORAL TABLET take 1 tablet po qhs for restless leg syndrome. PRAMIPEXOLE DIHYDROCHLORI DE 05331439218 No Longer Active Tesfaye Sherman MD Active MAGNESIUM 400 MG ORAL TABLET 1 tab po daily MAGNE SIUM 81584883012 Active Chelsea Cardenas APRN Active SUDAFED 24 HOUR 240 MG ORAL TABLET EXTENDED RELEASE 24 HOUR 1 tab po daily PSEUDOEPHEDRINE HCL 41411253322 Active Chelsea Cardenas APRN Active CETIRIZINE HCL 5 MG ORAL TABLET Take 1 tablet by mouth daily CETIRIZINE HCL 75958621292 No Longer Active Chelsea Cardenas APRN Activ e TRIMETHOPRIM 100 MG ORAL TABLET 1/2 qd TRIM ETHOPRIM 44007021438 No Longer Active Chelsea Cardenas APRN Active BACTRIM DS 800-160 MG ORAL TABLET 1 tab by mouth twice daily 201 04/04/11 TRIMETHOPRIM-SULFAMETHOXAZOLE 96526081072 No Longer Active Umer Sherman MD Active BACTRIM DS 800-160 MG ORAL TABLET 1 tab by mouth twice daily X 10 DAYS TRIMETHOPRIM-SULFAMETHOXAZOLE 47846186878 No Longer Active Tesfaye Sherman MD Active AMOXICILLIN 500 MG ORAL CAPSULE 1 cap by mouth three times a day AMOXICILLIN 58442516602 No Longer Active Adriana Arredondo Active MECLIZINE HCL 25 MG ORAL TABLET one tab po qday prn dizziness 09/08 MECLIZINE HCL 11268543382 Active Tesfaye Sherman MD Active B-12 1000 MCG ORAL LOZENGE 1 tab po daily CYANO COBALAMIN 52996812510 Active Tesfaye Sherman MD Active VITAMIN D3 2000 UNIT ORAL TABLET 1 daily, for vitamin D deficien cy CHOLECALCIFEROL 85863837128 No Longer Active Tesfaye Sherman MD Active TIZANIDINE HCL 2 MG ORAL TABLET take 1-2 tablet by mo [facility] every day at bedtime at 9pm PRN TIZANIDINE HCL 85064989724 Active Tesfaye hewitt MD Active ZITHROMAX 250 MG ORAL TABLET 2 po today, then 1 po q days 2-5 20 15/02/10 AZITHROMYCIN 58165980031 No Longer Active Tesfaye Sherman MD Active BACTRIM DS 800-160 MG ORAL TABLET 1 tab by mouth twice daily 201 03/03/23 TRIMETHOPRIM-SULFAMETHOXAZOLE 99788816537 No Longer Active Umer Sherman MD Active PRELIEF 340 (65-50) MG (CA-P) ORAL TABLET CALCIUM GLYCEROPHOSPHATE 16597197730 Active Tesfaye Sherman MD Acti ve [facility] NIACIN FLUSH FREE 400-100 MG ORAL CAPSULE 1 daily NIACIN-INOSITOL 79511633996 Active Kayla Cooper MD Activ e DIFLUCAN 150 MG ORAL TABLET 1 qd FLUCONAZOL E 67959229408 No Longer Active Kayla Cooper MD Active FLUTICASONE PROPIONATE 50 MCG/ACT NASAL SUSPENSION 1 spray each nostril twice daily FLUTICASONE PROPIONATE 40239292224 Active D patricia Sherman MD Active LOVASTATIN 20 MG ORAL TABLET Take 1 tablet by mouth daily LOVASTATIN 84724957486 No Longer Active Tesfaye Sherman MD Acti ve MELOXICAM 7.5 MG ORAL TABLET 1 tablet by mouth daily 2 MELOXICAM 47656041789 No Longer Active Tesfaye Sherman MD Acti ve GABAPENTIN 300 MG ORAL CAPSULE Take two tablets by mouth every e vening GABAPENTIN 60262710813 No Longer Active Edith Burch MD A ctive CLONAZEPAM 0.5 MG ORAL TABLET Take one tablet in the m orning and 1.5 tablet at 7pm CLONAZEPAM 41634575144 Active Kayla Cooper MD Active BACLOFEN 10 MG ORAL TABLET Take one tablet by mouth three times a d ay BACLOFEN 99638729190 Active Kayla Cooper MD Active GABAPENTIN 300 MG ORAL CAPSULE Take two tablets by mouth every e vening GABAPENTIN 300 MG ORAL CAPSULE 932791 GABAPENTIN I nactive MELOXICAM 7.5 MG ORAL TABLET 1 tablet by mouth daily 2 MELOXICAM 7.5 MG ORAL TABLET 266110 MELOXICAM Inactive LOVASTATIN 20 MG ORAL TABLET Take 1 tablet by mouth daily LOVASTATIN 20 MG ORAL TABLET 747933 LOVASTATIN Inactive DIFLUCAN 150 MG ORAL TABLET 1 qd DIFLUCAN 150 MG ORAL TABLET 604982 FLUCONAZOLE Inactive VITAMIN D3 2000 UNIT ORAL TABLET 1 daily, for vitamin D deficien cy VITAMIN D3 2000 UNIT ORAL TABLET CHOLECALCIFEROL Inactive AMOXICILLIN 500 MG ORAL CAPSULE 1 cap by mouth three times a day AMOXICILLIN 500 MG ORAL CAPSULE 775257 AMOXICILLIN Inactive BACTRIM DS 800-160 MG ORAL TABLET 1 tab by mouth twice daily X 10 DAYS BACTRIM DS 800-160 MG ORAL TABLET 097234 TRIMETHOPRIM-SULFAMETHOXAZOLE Inactive TRIMETHOPRIM 100 MG ORAL TABLET 1/2 qd 7 TRIMETHOPRIM 100 MG ORAL TABLET 134135 TRIMETHOPRIM Inactive CETIRIZINE HCL 5 MG ORAL TABLET Take 1 tablet by mouth daily CETIRIZINE HCL 5 MG ORAL TABLET 0162048 CETIRIZINE HCL Inactive PRAMIPEXOLE DIHYDROCHLORIDE 0.125 MG ORAL TABLET take 1 tablet po qhs for restless leg syndrome. PRAMIPEXOLE DIHYD ROCHLORIDE 0.125 MG ORAL TABLET 603218 PRAMIPEXOLE DIHYDROCHLORIDE Inactive MIRTAZAPINE 15 MG ORAL TABLET 1/2 tab by mouth at bedtime. 03/13 MIRTAZAPINE 15 MG ORAL TABLET 629947 MIRTAZAPINE In active DIFLUCAN 100 MG ORAL TABLET 1 tablet by mouth daily X 3 DAYS 201 04/09/01 DIFLUCAN 100 MG ORAL TABLET 676586 FLUCONAZOLE Inac tive DIFLUCAN 100 MG ORAL TABLET 1 tablet by mouth every other da y for 2 doses DIFLUCAN 100 MG ORAL TABLET 229332 FLUCONAZOLE Inactive CEFTIN 250 MG ORAL TABLET 1 tablet twice daily x 7 days CEFTIN 250 MG ORAL TABLET 307809 CEFUROXIME AXETIL Inactive CYMBALTA 30 MG ORAL CAPSULE DELAYED RELEASE PARTICLES 1 cap by mouth daily with 60mg CYMBALTA 30 MG ORAL CAPSULE DELAYED RELEASE PARTICLES 357226 DULOXETINE HCL Inactive CYMBALTA 60 MG ORAL CAPSULE DELAYED RELEASE PARTICLES Take 1 tablet by mouth daily CYMBALTA 60 MG ORAL CAPSULE DELAYED RELEA SE PARTICLES 497549 DULOXETINE HCL Inactive FOSAMAX 70 MG ORAL TABLET 1 po qweek. Take 30min prio r to first food/drink. Avoid lying down x 1 hour. FOSAMAX 70 MG ORAL TA BLET 638196 ALENDRONATE SODIUM Inactive DIFLUCAN 100 MG ORAL TABLET 1 tablet by mouth daily 20 19/08/26 DIFLUCAN 100 MG ORAL TABLET 19760711 FLUCONAZOLE Inactive PREDNISONE 20 MG ORAL TABLET 1 tab twice daily for 3 d ay, then one daily for three days PREDNISONE 20 MG ORAL TABLET 484500 PREDNIS ONE Inactive BACTRIM DS 800-160 MG ORAL TABLET 1 tab by mouth twice daily 201 03/03/23 BACTRIM DS 800-160 MG ORAL TABLET 19830105 TRIMETHOPRIM-SULFAMETHOXAZOLE Inactive ZITHROMAX 250 MG ORAL TABLET 2 po today, then 1 po q days 2-5 20 15/02/10 ZITHROMAX 250 MG ORAL TABLET 097992 AZITHROMYCIN Goode ctive BACTRIM DS 800-160 MG ORAL TABLET [...] 04/13/17 BACTRIM DS 800-160 MG ORAL TABLET 880294 TRIMETHOPRIM-SULFAMETHOXAZOLE Inactive DIFLUCAN 150 MG ORAL TABLET 1 tablet by mouth daily 20 18/09/20 DIFLUCAN 150 MG ORAL TABLET 19760712 FLUCONAZOLE Inactive BACTRIM DS 800-160 MG ORAL TABLET 1 tab by mouth twice daily 201 05/04/15 BACTRIM DS 800-160 MG ORAL TABLET 776416 TRIMETHOPRIM-SULFAMETHOXAZOLE Inactive BACTRIM DS 800-160 MG ORAL TABLET 1 tab by mouth twice daily 201 05/06/28 BACTRIM DS 800-160 MG ORAL TABLET 633331 TRIMETHOPRIM-SULFAMETHOXAZOLE Inactive DIFLUCAN 100 MG ORAL TABLET 1 tablet by mouth daily 20 19/03/05 DIFLUCAN 100 MG ORAL TABLET 19760711 FLUCONAZOLE Inactive BACTRIM DS 800-160 MG ORAL TABLET 1 tab by mouth twice daily 201 05/10/28 BACTRIM DS 800-160 MG ORAL TABLET 986835 TRIMETHOPRIM-SULFAMETHOXAZOLE Inactive AMOXICILLIN 500 MG ORAL CAPSULE 1 cap by mouth three times a day AMOXICILLIN 500 MG ORAL CAPSULE 691269 AMOXICILLIN Inactive Advance Directives Directive Description Start Date PERMISSION TO SHARE DISCUSSED WITH PATIENT -- NO DECISION MADE DURABLE POWER OF DIRECTOR [employer] Vital Signs Date Name Value [...] ... - Chemistry sodium, serum 144 mmol/L 588-100 7946/06/14 carbon dioxide, venous blood 29.4 mmol/L 21.0-32 .0 potassium, serum 4.4 mmol/L 3.5-5.2 chloride, serum 108 mmol/L 98-107 blood glucose 100 mg/dL 65-110 urea nitrogen, blood 9 mg/dL 7-18 creatinine, serum 0.67 mg/dL 0.55-1.30 alanine aminotransferase (SGPT), serum 24 U/L 12-78 aspartate aminotransferase (SGOT), serum 15 U/L 15-37 calcium, serum 9.3 mg/dL 8.5-10.1 bilirubin, serum, total 0.50 mg/dL 0.00-1.00 cholesterol, serum 268 mg/dL 884-738 6684/06/14 triglyceride, serum, fasting 126 mg/dL 30-200 HDL cholesterol, serum 51 mg/dL 32-96 LDL cholesterol, serum 192 mg/dL 0-130 TSH 0.83 m[iU]/mL 0.36-3.74 thyroxine, serum, free 1.03 ng/dL 0.76-1.46 uric acid, serum 3.2 mg/dL 2.6-7.2 Lab Report: Comp. Metabolic Panel, Lynn frances - Chemistry sodium, serum 141 mmol/L 561-803 7267/01/26 carbon dioxide, venous blood 29.5 mmol/L 21.0-32 .0 potassium, serum 4.5 mmol/L 3.5-5.2 chloride, serum 103 mmol/L 98-107 blood glucose 89 mg/dL 65-110 urea nitrogen, blood 13 mg/dL 7-18 creatinine, serum 0.65 mg/dL 0.60-1.30 alanine aminotransferase (SGPT), serum 29 U/L -78 aspartate aminotransferase (SGOT), serum 20 U/L 15-37 [...] mg/dL Encounters Code Encounter Date Provider Facility CPT-19901 Level 4 Est. Patient 14:44:33 SCLEROSCOPE TESTER Tesfaye pearson MD [facility] CPT-81102 Level 4 Est. Patient 13:55:29 SCLEROSCOPE TESTER Tesfaye pearson MD [facility] CPT-33311 Level 4 Est. Patient 17:07:34 SCLEROSCOPE TESTER Tesfaye pearson MD [facility] CPT-70997 Level 4 Est. Patient 13:56:54 CDT Tesfaye pearson MD [facility]-26298 Level 4 Est. Patient 13:24:25 CDT Chelsea sanz APRN [facility] CPT-94012 Level 4 Est. Patient 09:14:56 CDT Tesfaye pearson MD [facility]-58140 Level 4 Est. Patient 18:40:25 SCLEROSCOPE TESTER Tesfaye pearson MD [facility] CPT-96371 Level 4 Est. Patient 18:13:07 SCLEROSCOPE TESTER Tesfaye pearson MD [facility] CPT-20231 Level 3 Est. Patient 10:46:32 CDT Rj cotto DO [facility] CPT-60327 Level 4 Est. Patient 20:19:25 CDT Tesfaye pearson MD [facility] CPT-11039 Level 3 Est. Patient 09:07:31 CDT Tesfaye pearson MD [facility] CPT-97967 Level 4 Est. Patient 13:12:56 CDT Tesfaye pearson MD [facility] CPT-13062 Level 4 Est. Patient 21:24:55 SCLEROSCOPE TESTER Tesfaye pearson MD [facility]-11223 Level 3 Est. Patient 13:45:04 SCLEROSCOPE TESTER Tesfaye pearson MD [facility] CPT-36959 Level 4 Est. Patient 13:50:45 CDT Tesfaye pearson MD [facility] CPT-63302 Level 3 Est. Patient 10:16:10 CDT Tesfaye pearson MD [facility] CPT-09007 Level 3 Est. Patient 16:36:07 SCLEROSCOPE TESTER Kayla jameson MD [facility] CPT-46054 Level 4 Est. Patient 16:00:14 SCLEROSCOPE TESTER Tesfaye pearson MD [facility] CPT-63780 Level 4 Est. Patient 11:02:24 SCLEROSCOPE TESTER Tesfaye pearson MD [facility] CPT-37568 Level 3 Est. Patient 20:21:43 SCLEROSCOPE TESTER Kayla jameson MD [facility] CPT-32451 Level 3 Est. Patient 13:27:28 SCLEROSCOPE TESTER Kayla jameson MD [facility] CPT-33629 Level 4 Est. Patient 15:57:17 SCLEROSCOPE TESTER Tesfaye pearson MD [facility] CPT-35127 Level 3 New Patient 13:25:47 CDT Tesfaye kidd MD [facility] CPT-50080 Level 3 New Patient 17:22:21 CDT J John angel MD [facility] Procedures Code Procedure Name Date Entry Date Standard Desc ription CPT-54610 Bone Density - XRAY USE ONLY 11:43:58 CDT CPT-24373 Bone Density - XRAY USE ONLY 10:05:16 CDT 2 CPT-54049 Prv Med New Pt 40-64 yrs 18:19:25 CDT 2016 CPT-64520 Foot, right, comp min 3V - XRAY USE ONLY 10:38:34 CDT CPT-G0439 Subsequent Annual Wellness Exam 13:55:04 CDT CPT-G0438 Initial Annual Wellness Exam 11:23:17 CD T CPT-J2930 Solu Medrol 125 mg (Methyl Prednisolone Sodium Succinate) 17:29:12 SCLEROSCOPE TESTER CPT-60409 Abx/Therapy Injection 17:29:11 SCLEROSCOPE TESTER CPT-J2930 Solu Medrol 125 mg (Methyl Prednisolone Sodium Succinate) 12:34:38 SCLEROSCOPE TESTER CPT-J3420 Vitamin B12 1000mcg (Cyanocobalamin) 09:12:55 CDT CPT-J3420 Vitamin B12 1000mcg (Cyanocobalamin) 16:28:06 SCLEROSCOPE TESTER CPT-15572 Venipuncture Draw Fee 08:39:53 CDT CPT-J3420 Vitamin B12 1000mcg (Cyanocobalamin) 08:46:22 CDT CPT-80208 Abx/Therapy Injection 08:46:22 CDT CPT-J3420 Vitamin B12 1000mcg (Cyanocobalamin) 08:41:26 CDT CPT-72814 Abx/Therapy Injection 08:41:26 CDT CPT-J3420 Vitamin B12 1000mcg (Cyanocobalamin) 08:57:15 CDT CPT-87877 Abx/Therapy Injection 08:57:15 CDT CPT-J3420 Vitamin B12 1000mcg (Cyanocobalamin) 10:59:03 CDT CPT-13684 Abx/Therapy Injection 10:59:03 CDT CPT-J3420 Vitamin B12 1000mcg (Cyanocobalamin) 15:05:39 CDT CPT-61425 Abx/Therapy Injection 15:05:39 CDT CPT-J3420 Vitamin B12 1000mcg (Cyanocobalamin) 13:50:45 CDT CPT-J3420 Vitamin B12 1000mcg (Cyanocobalamin) 08:48:55 CDT CPT-23643 Abx/Therapy Injection 08:48:55 CDT CPT-J3420 Vitamin B12 1000mcg (Cyanocobalamin) 09:14:54 CDT CPT-06737 Abx/Therapy Injection 09:14:54 CDT CPT-J3420 Vitamin B12 1000mcg (Cyanocobalamin) 09:06:06 CDT CPT-36156 Abx/Therapy Injection 09:06:06 CDT CPT-J3420 Vitamin B12 1000mcg (Cyanocobalamin) 09:49:14 CDT CPT-74855 Abx/Therapy Injection 09:49:14 CDT CPT-J3420 Vitamin B12 1000mcg (Cyanocobalamin) 09:10:30 SCLEROSCOPE TESTER CPT-42942 Abx/Therapy Injection 09:10:30 SCLEROSCOPE TESTER CPT-J3420 Vitamin B12 1000mcg (Cyanocobalamin) 09:11:07 SCLEROSCOPE TESTER CPT-77288 Abx/Therapy Injection 09:11:07 SCLEROSCOPE TESTER CPT-J3420 Vitamin B12 1000mcg (Cyanocobalamin) 09:57:03 SCLEROSCOPE TESTER CPT-51663 Abx/Therapy Injection 09:57:03 SCLEROSCOPE TESTER CPT-J3420 Vitamin B12 1000mcg (Cyanocobalamin) 09:23:21 SCLEROSCOPE TESTER CPT-77933 Abx/Therapy Injection 09:23:21 SCLEROSCOPE TESTER CPT-02449 Urine Dip (Floor Use Only) 20:21:44 SCLEROSCOPE TESTER 201 02/12/11 CPT-92784 UA Dip Auto (Floor Use Only) 10:04:39 SCLEROSCOPE TESTER 2 CPT-46991 Urine Dip (Floor Use Only) 13:27:28 SCLEROSCOPE TESTER 201 02/12/01 CPT-86235 Bladder Scan 13:27:28 SCLEROSCOPE TESTER CPT-39739 Abd single AP View 14:30:51 SCLEROSCOPE TESTER CPT-OV Office Visit 10:15:43 CDT CPT-94201 Urine Dip (Floor Use Only) 17:22:21 CDT 201 02/09/02 CPT-54717 Bladder Scan 17:22:21 CDT
--- OUTSIDE RECORDS SUMMARY | 2020-05-05 12:26 | XMS REPORT | Clinical Summary ---
Author Author Jeri Hanley Organization [employer] Address Unknown Phone Unavailable Allergies, Adverse Reactions, [...] 1 tablet by mouth daily FLU CONAZOLE 01788041117 Active Laurence Raida Active BACTRIM DS 800-160 MG TAB 1 tab by mouth twice daily 2 TRIMETHOPRIM-SULFAMETHOXAZOLE 30535882020 Active Laurence Raduyen Active FOSAMAX 70 MG TABS 1 po qweek. Take 30min prio r to first food/drink. Avoid lying down x 1 hour. ALENDRONATE SODIUM [id number] N o Longer Active Laurence Lopezduyen Active REPHRESH PRO-B ORAL CAPS 1 tablet daily LACTOBACI LLUS 80223805654 Active Edith Burch MD Active CYMBALTA 60 MG CPEP Take 1 tablet by mouth daily 1 DULOXETINE HCL 09353276766 No Longer Active Edith Burch MD Active CYMBALTA 30 MG CPEP 1 cap by mouth daily with 60mg 201 05/09/11 DULOXETINE HCL 61424465348 No Longer Active Edith Burch MD Activ e FISH OIL 1000 MG CPDR 1 pill by mouth daily for cholesterol 04/18 OMEGA- 3 FATTY ACIDS 58114677232 Active Rosa Jaffe LPN Acti ve RED YEAST RICE 600 MG CAPS 1 pill by mouth daily RED YEAST RICE EXTRACT 43927923192 Active Rosa Jaffe LPN Activ e VENLAFAXINE HCL 37.5 MG TABS 1/4 tab po titrating up to full dose 2 VENLAFAXINE HCL 63179532990 Active Chelsea Barba APRN Activ e DIFLUCAN 100 MG TAB 1 tablet by mouth daily FLU CONAZOLE 42132983074 No Longer Active Tesfaye Sherman MD Active BACTRIM DS 800-160 MG TAB 1 tab by mouth twice daily 2 TRIMETHOPRIM-SULFAMETHOXAZOLE 72396141387 No Longer Active Tesfaye Sherman MD Active BACTRIM DS 800-160 MG TAB 1 tab by mouth twice daily 2 TRIMETHOPRIM-SULFAMETHOXAZOLE 71826471723 No Longer Active Tesfaye Sherman MD Active DIFLUCAN 150 MG TAB 1 tablet by mouth daily FLU CONAZOLE 45884976881 No Longer Active Tesfaye Sherman MD Active BACTRIM DS 800-160 MG TAB 1 tab by mouth twice daily 2 TRIMETHOPRIM-SULFAMETHOXAZOLE 15151878993 No Longer Active Tesfaye Sherman MD Active ROPINIROLE HCL 0.25 MG ORAL TABS 1 TAB PO Q HS ROPINIROLE HCL 07857491629 Active Tesfaye Sherman MD Active CEFTIN 250 MG TAB 1 tablet twice daily x 7 days 11/19 CEFUROXIME AXETIL 42320014735 No Longer Active Tesfaye Sherman MD Acti ve DIFLUCAN 100 MG TABS 1 tablet by mouth every other day for 2 dos es FLUCONAZOLE 75228666402 No Longer Active Tesfaye Sherman MD Active DIFLUCAN 100 MG TAB 1 tablet by mouth daily X 3 DAYS 2 FLUCONAZOLE 63110225303 No Longer Active Rj Moss DO Active MIRTAZAPINE 15 MG ORAL TABS 1/2 tab by mouth at bedtime. MIRTAZAPINE 16559580935 No Longer Active Tesfaye Sherman MD Acti ve BACTRIM DS 800-160 MG TAB 1 tab by mouth twice daily 2 TRIMETHOPRIM-SULFAMETHOXAZOLE 86893479768 No Longer Active Tesfaye Sherman MD Active PRAMIPEXOLE DIHYDROCHLORIDE 0.125 MG ORAL TABS take 1 tablet po qhs for restless leg syndrome. PRAMIPEXOLE DIHYDROCHLORIDE 55723797768 No Longer Active Tesfaye Sherman MD Active MAGNESIUM 400 MG ORAL TABS 1 tab po daily MAGNESI UM 70807570679 Active Chelsea Barba APRN Active SUDAFED 24 HOUR 240 MG ORAL [id number] 1 tab po daily PSEUDOEPHEDRINE HCL 64112662515 Active Chelsea Barba APRN A ctive CETIRIZINE HCL 5 MG TABS Take 1 tablet by mouth daily CETIRIZINE HCL 88080792279 No Longer Active Chelsea Barba APRN Acti ve TRIMETHOPRIM 100 MG TABS 1/2 qd TRIMETHOPRIM 24798683483 No Longer Active Chelsea Barba APRN Active BACTRIM DS 800-160 MG TAB 1 tab by mouth twice daily 2 TRIMETHOPRIM-SULFAMETHOXAZOLE 29545093719 No Longer Active Tesfaye Sherman MD Active BACTRIM DS 800-160 MG TAB 1 tab by mouth twice daily X 10 DAYS 2 TRIMETHOPRIM-SULFAMETHOXAZOLE 53823454255 No Longer Active Umer Sherman MD Active AMOXICILLIN 500 MG CAPS 1 cap by mouth three times a day AMOXICILLIN 58452055961 No Longer Active Adriana Arredondo Active MECLIZINE HCL 25 MG TAB one tab po qday prn dizziness MECLIZINE HCL 30179804811 Active Tesfaye Sherman MD Active B-12 1000 MCG ORAL LOZG 1 tab po daily CYANOCOBAL STANTON 15155882415 Active Tesfaye Sherman MD Active VITAMIN D3 2000 UNIT TABS 1 daily, for vitamin D deficiency 2014 CHOLECALCIFEROL 02260413410 No Longer Active Tesfaye Sherman MD Active TIZANIDINE HCL 2 MG TABS take 1-2 tablet by mouth ev at bedtime at 9pm PRN TIZANIDINE HCL 32194283590 Active Tesfaye Owusu Active ZITHROMAX 250 MG TAB 2 po today, then 1 po q days 2-5 AZITHROMYCIN 97317226832 No Longer Active Tesfaye Sherman MD Acti ve BACTRIM DS 800-160 MG TAB 1 tab by mouth twice daily 2 TRIMETHOPRIM-SULFAMETHOXAZOLE 07971506907 No Longer Active Tesfaye Sherman MD Active PRELIEF 340 (65-50) MG (CA-P) ORAL TABS CALCIUM GLYCEROPHOSPHATE 53858920779 Active Tesfaye Sherman MD Active [facility] NIACIN FLUSH FREE 400-100 MG CAPS 1 daily NIACIN-INOSITOL 06513073206 Active Kayla Cooper MD Active DIFLUCAN 150 MG TABS 1 qd FLUCONAZOLE 37943 093964 No Longer Active Kayla Cooper MD Active FLUTICASONE PROPIONATE 50 MCG/ACT SUSP 1 spray each nostril twice daily FLUTICASONE PROPIONATE 61328007866 Active Tesfaye armenta MD Active LOVASTATIN 20 MG TABS Take 1 tablet by mouth daily LOVASTATIN 98726786725 No Longer Active Tesfaye Sherman MD Active MELOXICAM 7.5 MG TABS 1 tablet by mouth daily M ELOXICAM 48626607944 No Longer Active Tesfaye Sherman MD Active GABAPENTIN 300 MG CAPS Take two tablets by mouth every evening GABAPENTIN 88753643448 No Longer Active Edith Burch MD Active OXYCODONE-ACETAMINOPHEN 5-325 MG TABS Take one tablet by mouth every 6 hours as needed. Max 12 tabs/day as needed OXYCODONE-ACETAMINOP HEN 68096798243 Active Tesfaye Sherman MD Active CLONAZEPAM 0.5 MG TABS Take one tablet in the morning and 1.5 table t at 7pm CLONAZEPAM 97586186024 Active Kayla Cooper MD Active BACLOFEN 10 MG TABS Take one tablet by mouth three times a day BACLOFEN 10557881229 Active Kayla Cooper MD Active GABAPENTIN 300 MG CAPS Take two tablets by mouth every evening GABAPENTIN 300 MG CAPS 885349 GABAPENTIN Inactive MELOXICAM 7.5 MG TABS 1 tablet by mouth daily MELOXICAM 7.5 MG TABS 406029 MELOXICAM Inactive LOVASTATIN 20 MG TABS Take 1 tablet by mouth daily 201 02/12/20 LOVASTATIN 20 MG TABS 287421 LOVASTATIN Inactive DIFLUCAN 150 MG TABS 1 qd DIFLUCAN 150 MG T ABS 387467 FLUCONAZOLE Inactive VITAMIN D3 2000 UNIT TABS 1 daily, for vitamin D deficiency 2014 VITAMIN D3 2000 UNIT TABS CHOLECALCIFEROL Inacti ve AMOXICILLIN 500 MG CAPS 1 cap by mouth three times a day AMOXICILLIN 500 MG CAPS 821163 AMOXICILLIN Inactive BACTRIM DS 800-160 MG TAB 1 tab by mouth twice daily X 10 DAYS 2 BACTRIM DS 800-160 MG TAB 773211 TRIMETHOPRIM-SULFAMETH OXAZOLE Inactive TRIMETHOPRIM 100 MG TABS 1/2 qd TRIMETHOPRI M 100 MG TABS 512141 TRIMETHOPRIM Inactive CETIRIZINE HCL 5 MG TABS Take 1 tablet by mouth daily CETIRIZINE HCL 5 MG TABS 6890158 CETIRIZINE HCL Inactive PRAMIPEXOLE DIHYDROCHLORIDE 0.125 MG ORAL TABS take 1 tablet po qhs for restless leg syndrome. PRAMIPEXOLE DIHYDROC HLORIDE 0.125 MG ORAL TABS 194687 PRAMIPEXOLE DIHYDROCHLORIDE Inactive MIRTAZAPINE 15 MG ORAL TABS 1/2 tab by mouth at bedtime. MIRTAZAPINE 15 MG ORAL TABS 959224 MIRTAZAPINE Inactive DIFLUCAN 100 MG TAB 1 tablet by mouth daily X 3 DAYS 2 DIFLUCAN 100 MG TAB 405331 FLUCONAZOLE Inactive DIFLUCAN 100 MG TABS 1 tablet by mouth every other day for 2 dos es DIFLUCAN 100 MG TABS 018514 FLUCONAZOLE Inactive CEFTIN 250 MG TAB 1 tablet twice daily x 7 days 11/19 CEFTIN 250 MG TAB 269488 CEFUROXIME AXETIL Inactive CYMBALTA 30 MG CPEP 1 cap by mouth daily with 60mg 201 05/09/11 CYMBALTA 30 MG CPEP 071990 DULOXETINE HCL Inactive CYMBALTA 60 MG CPEP Take 1 tablet by mouth daily 05/13 CYMBALTA 60 MG CPEP 935869 DULOXETINE HCL Inactive FOSAMAX 70 MG TABS 1 po qweek. Take 30min prio r to first food/drink. Avoid lying down x 1 hour. FOSAMAX 70 MG TABS 500631 A LENDRONATE SODIUM Inactive BACTRIM DS 800-160 MG TAB 1 tab by mouth twice daily 2 BACTRIM DS 800-160 MG TAB 19830105 TRIMETHOPRIM-SULFAMETHOXAZOLE Inac tive ZITHROMAX 250 MG TAB 2 po today, then 1 po q days 2-5 ZITHROMAX 250 MG TAB 5903967 AZITHROMYCIN Inactive BACTRIM DS 800-160 MG TAB 1 tab by mouth twice daily 2 BACTRIM DS 800-160 MG TAB 19830105 TRIMETHOPRIM-SULFAMETHOXAZOLE Inac tive BACTRIM DS 800-160 MG TAB 1 tab by mouth twice daily 2 BACTRIM DS 800-160 MG TAB 19830105 TRIMETHOPRIM-SULFAMETHOXAZOLE Inac tive BACTRIM DS 800-160 MG TAB 1 tab by mouth twice daily 2 BACTRIM DS 800-160 MG TAB 706817 TRIMETHOPRIM-SULFAMETHOXAZOLE Inac tive DIFLUCAN 150 MG TAB 1 tablet by mouth daily DIFLUCAN 150 MG TAB 19760712 FLUCONAZOLE Inactive BACTRIM DS 800-160 MG TAB 1 tab by mouth twice daily 2 BACTRIM DS 800-160 MG TAB 292839 TRIMETHOPRIM-SULFAMETHOXAZOLE Inac tive BACTRIM DS 800-160 MG TAB 1 tab by mouth twice daily 2 BACTRIM DS 800-160 MG TAB 19830105 TRIMETHOPRIM-SULFAMETHOXAZOLE Inac tive DIFLUCAN 100 MG TAB 1 tablet by mouth daily DIFLUCAN 100 MG TAB 566202 FLUCONAZOLE Inactive Advance Directives Directive Description Start [...] weight E&M 125.0 [lb_av] Weight Measure d Diagnostic Results Date [...] ... - Chemistry sodium, serum 144 mmol/L 870-334 9511/06/14 carbon dioxide, venous blood 29.4 mmol/L 21.0-32 .0 potassium, serum 4.4 mmol/L 3.5-5.2 chloride, serum 108 mmol/L 98-107 blood glucose 100 mg/dL 65-110 urea nitrogen, blood 9 mg/dL 7-18 creatinine, serum 0.67 mg/dL 0.55-1.30 alanine aminotransferase (SGPT), serum 24 U/L 12-78 aspartate aminotransferase (SGOT), serum 15 U/L 15-37 calcium, serum 9.3 mg/dL 8.5-10.1 bilirubin, serum, total 0.50 mg/dL 0.00-1.00 cholesterol, serum 268 mg/dL 952-814 8518/06/14 triglyceride, serum, fasting 126 mg/dL 30-200 HDL [...] mg/dL Encounters Code Encounter Date Provider Facility CPT-95791 Level 4 Est. Patient 13:56:54 CDT Tesfaye pearson MD [facility] CPT-19581 Level 4 Est. Patient 13:24:25 CDT Stephanie MERCADO [facility] CPT-21540 Level 4 Est. Patient 09:14:56 CDT Tesfaye pearson MD [facility] CPT-32490 Level 4 Est. 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 Patient 18:13:07 CAR DESIGNER Tesfaye pearson MD [facility]-21102 Level 3 Est. Patient 10:46:32 CDT Rj cotto DO [facility] CPT-31133 Level 4 Est. Patient 20:19:25 CDT Tesfaye pearson MD [facility]-06640 Level 3 Est. Patient 09:07:31 CDT Tesfaye pearson MD [facility]-05444 Level 4 Est. Patient 13:12:56 CDT Tesfaye pearson MD [facility]-04566 Level 4 Est. Patient 21:24:55 CAR DESIGNER Tesfaye pearson MD [facility]-31562 Level 3 Est. Patient 13:45:04 CAR DESIGNER Tesfaye pearson MD [facility] CPT-86585 Level 4 Est. Patient 13:50:45 CDT Tesfaye pearson MD [facility] CPT-41595 Level 3 Est. Patient 10:16:10 CDT Tesfaye pearson MD [facility] CPT-31426 Level 3 Est. Patient 16:36:07 CAR DESIGNER Kayla jameson MD [facility]-97489 Level 4 Est. Patient 16:00:14 CAR DESIGNER Tesfaye pearson MD [facility]-74922 Level 4 Est. Patient 11:02:24 CAR DESIGNER Tesfaye pearson MD [facility]-39161 Level 3 Est. Patient 20:21:43 CAR DESIGNER Kayla jameson MD [facility]-66546 Level 3 Est. Patient 13:27:28 CAR DESIGNER Kayla jameson MD [facility]-78716 Level 4 Est. Patient 15:57:17 CAR DESIGNER Tesfaye pearson MD [facility] CPT-46571 Level 3 New Patient 13:25:47 CDT Tesfaye kidd MD [facility] CPT-31276 Level 3 New Patient 17:22:21 CDT Kayla angel MD [facility] Procedures Code Procedure Name Date Entry Date Standard Desc ription CPT-95274 Bone Density - XRAY USE ONLY 11:43:58 CDT 2 CPT-08238 Bone Density - XRAY USE ONLY 10:05:16 CDT 2 CPT-85578 Prv Med New Pt 40-64 yrs 18:19:25 CDT 2016 CPT-10915 Foot, right, comp min 3V - XRAY USE ONLY 10:38:34 CDT CPT-G0439 Subsequent Annual Wellness Exam 13:55:04 CDT CPT-G0438 Initial Annual Wellness Exam 11:23:17 CD T CPT-J2930 Solu Medrol 125 mg (Methyl Prednisolone Sodium Succinate) 17:29:12 CAR DESIGNER CPT-59445 Abx/Therapy Injection 17:29:11 CAR DESIGNER CPT-J2930 Solu Medrol 125 mg (Methyl Prednisolone Sodium Succinate) 12:34:38 CAR DESIGNER CPT-J3420 Vitamin B12 1000mcg (Cyanocobalamin) 09:12:55 CDT CPT-J3420 Vitamin B12 1000mcg (Cyanocobalamin) 16:28:06 CAR DESIGNER CPT-18167 Venipuncture Draw Fee 08:39:53 CDT CPT-J3420 Vitamin B12 1000mcg (Cyanocobalamin) 08:46:22 CDT CPT-65601 Abx/Therapy Injection 08:46:22 CDT CPT-J3420 Vitamin B12 1000mcg (Cyanocobalamin) 08:41:26 CDT CPT-53487 Abx/Therapy Injection 08:41:26 CDT CPT-J3420 Vitamin B12 1000mcg (Cyanocobalamin) 08:57:15 CDT CPT-29907 Abx/Therapy Injection 08:57:15 CDT CPT-J3420 Vitamin B12 1000mcg (Cyanocobalamin) 10:59:03 CDT CPT-39440 Abx/Therapy Injection 10:59:03 CDT CPT-J3420 Vitamin B12 1000mcg (Cyanocobalamin) 15:05:39 CDT CPT-80184 Abx/Therapy Injection 15:05:39 CDT CPT-J3420 Vitamin B12 1000mcg (Cyanocobalamin) 13:50:45 CDT CPT-J3420 Vitamin B12 1000mcg (Cyanocobalamin) 08:48:55 CDT CPT-23707 Abx/Therapy Injection 08:48:55 CDT CPT-J3420 Vitamin B12 1000mcg (Cyanocobalamin) 09:14:54 CDT CPT-33298 Abx/Therapy Injection 09:14:54 CDT CPT-J3420 Vitamin B12 1000mcg (Cyanocobalamin) 09:06:06 CDT CPT-27363 Abx/Therapy Injection 09:06:06 CDT CPT-J3420 Vitamin B12 1000mcg (Cyanocobalamin) 09:49:14 CDT CPT-23990 Abx/Therapy Injection 09:49:14 CDT CPT-J3420 Vitamin B12 1000mcg (Cyanocobalamin) 09:10:30 CAR DESIGNER CPT-66840 Abx/Therapy Injection 09:10:30 CAR DESIGNER CPT-J3420 Vitamin B12 1000mcg (Cyanocobalamin) 09:11:07 CAR DESIGNER CPT-60200 Abx/Therapy Injection 09:11:07 CAR DESIGNER CPT-J3420 Vitamin B12 1000mcg (Cyanocobalamin) 09:57:03 CAR DESIGNER CPT-73426 Abx/Therapy Injection 09:57:03 CAR DESIGNER CPT-J3420 Vitamin B12 1000mcg (Cyanocobalamin) 09:23:21 CAR DESIGNER CPT-19134 Abx/Therapy Injection 09:23:21 CAR DESIGNER CPT-06954 Urine Dip (Floor Use Only) 20:21:44 CAR DESIGNER 201 02/12/11 CPT-29499 UA Dip Auto (Floor Use Only) 10:04:39 CAR DESIGNER 2 CPT-53030 Urine Dip (Floor Use Only) 13:27:28 CAR DESIGNER 201 02/12/01 CPT-75844 Bladder Scan 13:27:28 CAR DESIGNER CPT-19844 Abd single AP View 14:30:51 CAR DESIGNER CPT-OV Office Visit 10:15:43 CDT CPT-68685 Urine Dip (Floor Use Only) 17:22:21 CDT 201 02/09/02 CPT-25653 Bladder Scan 17:22:21 CDT
--- OUTSIDE RECORDS SUMMARY | 2020-05-05 12:26 | XMS REPORT | Clinical Summary ---
Author Author Talon, Jeri Wood Organization [employer] Address Unknown Phone Unavailable Allergies, Adverse Reactions, [...] lying down x 1 hour. ALENDRONATE SODIUM [id number] Active Tesfaye Sherman MD Active REPHRESH PRO-B ORAL CAPS 1 tablet daily LACTOBACI LLUS 65241482286 Active Edith Burch MD Active CYMBALTA 60 MG CPEP Take 1 tablet by mouth daily 1 DULOXETINE HCL 14155330052 No Longer Active Edith Burch MD Active CYMBALTA 30 MG CPEP 1 cap by mouth daily with 60mg 201 05/09/11 DULOXETINE HCL 83898259701 No Longer Active Edith Burch MD Activ e FISH OIL 1000 MG CPDR 1 pill by mouth daily for cholesterol 04/18 OMEGA- 3 FATTY ACIDS 75546640988 Active Rosa Jaffe LPN Acti ve RED YEAST RICE 600 MG CAPS 1 pill by mouth daily RED YEAST RICE EXTRACT 33514114317 Active Rosa Jaffe LPN Activ e VENLAFAXINE HCL 37.5 MG TABS 1/4 tab po titrating up to full dose 2 VENLAFAXINE HCL 28362370889 Active Chelsea Barba APRN Activ e DIFLUCAN 100 MG TAB 1 tablet by mouth daily FLU CONAZOLE 13656549383 No Longer Active Tesfaye Sherman MD Active BACTRIM DS 800-160 MG TAB 1 tab by mouth twice daily 2 TRIMETHOPRIM-SULFAMETHOXAZOLE 10598687611 No Longer Active Tesfaye Sherman MD Active BACTRIM DS 800-160 MG TAB 1 tab by mouth twice daily 2 TRIMETHOPRIM-SULFAMETHOXAZOLE 53545682049 No Longer Active Tesfaye Sherman MD Active DIFLUCAN 150 MG TAB 1 tablet by mouth daily FLU CONAZOLE 60492357740 No Longer Active Tesfaye Sherman MD Active BACTRIM DS 800-160 MG TAB 1 tab by mouth twice daily 2 TRIMETHOPRIM-SULFAMETHOXAZOLE 99174987214 No Longer Active Tesfaye Sherman MD Active ROPINIROLE HCL 0.25 MG ORAL TABS 1 TAB PO Q HS ROPINIROLE HCL 93936888848 Active Tesfaye Sherman MD Active CEFTIN 250 MG TAB 1 tablet twice daily x 7 days 11/19 CEFUROXIME AXETIL 48274585693 No Longer Active Tesfaye Sherman MD Acti ve DIFLUCAN 100 MG TABS 1 tablet by mouth every other day for 2 dos es FLUCONAZOLE 06125816066 No Longer Active Tesfaye Sherman MD Active DIFLUCAN 100 MG TAB 1 tablet by mouth daily X 3 DAYS 2 FLUCONAZOLE 69476811956 No Longer Active Rj Moss DO Active MIRTAZAPINE 15 MG ORAL TABS 1/2 tab by mouth at bedtime. MIRTAZAPINE 76346014329 No Longer Active Tesfaye Sherman MD Acti ve BACTRIM DS 800-160 MG TAB 1 tab by mouth twice daily 2 TRIMETHOPRIM-SULFAMETHOXAZOLE 30765883144 No Longer Active Tesfaye Sherman MD Active PRAMIPEXOLE DIHYDROCHLORIDE 0.125 MG ORAL TABS take 1 tablet po qhs for restless leg syndrome. PRAMIPEXOLE DIHYDROCHLORIDE 74895392746 No Longer Active Tesfaye Sherman MD Active MAGNESIUM 400 MG ORAL TABS 1 tab po daily MAGNESI UM 85520470565 Active Chelsea Barba APRN Active SUDAFED 24 HOUR 240 MG ORAL [id number] 1 tab po daily PSEUDOEPHEDRINE HCL 29128740345 Active Chelsea Barba APRN A ctive CETIRIZINE HCL 5 MG TABS Take 1 tablet by mouth daily CETIRIZINE HCL 80808661180 No Longer Active Chelsea Barba APRN Acti ve TRIMETHOPRIM 100 MG TABS 1/2 qd TRIMETHOPRIM 49410232995 No Longer Active Chelsea Barba APRN Active BACTRIM DS 800-160 MG TAB 1 tab by mouth twice daily 2 TRIMETHOPRIM-SULFAMETHOXAZOLE 44127788770 No Longer Active Tesfaye Sherman MD Active BACTRIM DS 800-160 MG TAB 1 tab by mouth twice daily X 10 DAYS 2 TRIMETHOPRIM-SULFAMETHOXAZOLE 71229339004 No Longer Active Umer Sherman MD Active AMOXICILLIN 500 MG CAPS 1 cap by mouth three times a day AMOXICILLIN 90977948104 No Longer Active Adriana Arredondo Active MECLIZINE HCL 25 MG TAB one tab po qday prn dizziness MECLIZINE HCL 76001506258 Active Tesfaye Sherman MD Active B-12 1000 MCG ORAL LOZG 1 tab po daily CYANOCOBAL STANTON 89184580230 Active Tesfaye Sherman MD Active VITAMIN D3 2000 UNIT TABS 1 daily, for vitamin D deficiency 2014 CHOLECALCIFEROL 92132828916 No Longer Active Tesfaye Sherman MD Active TIZANIDINE HCL 2 MG TABS take 1-2 tablet by mouth at bedtime at 9pm PRN TIZANIDINE HCL 38591302752 Active Tesfaye Owusu Active ZITHROMAX 250 MG TAB 2 po today, then 1 po q days 2-5 AZITHROMYCIN 00112222619 No Longer Active Tesfaye Sherman MD Acti ve BACTRIM DS 800-160 MG TAB 1 tab by mouth twice daily 2 TRIMETHOPRIM-SULFAMETHOXAZOLE 21048827159 No Longer Active Tesfaye Sherman MD Active PRELIEF 340 (65-50) MG (CA-P) ORAL TABS CALCIUM GLYCEROPHOSPHATE 85630666346 Active Tesfaye Sherman MD Active [facility] NIACIN FLUSH FREE 400-100 MG CAPS 1 daily NIACIN-INOSITOL 96952937212 Active Kayla Cooper MD Active DIFLUCAN 150 MG TABS 1 qd FLUCONAZOLE 84660 240826 No Longer Active Kayla Cooper MD Active FLUTICASONE PROPIONATE 50 MCG/ACT SUSP 1 spray each nostril twice daily FLUTICASONE PROPIONATE 78696258568 Active Tesfaye armenta MD Active LOVASTATIN 20 MG TABS Take 1 tablet by mouth daily LOVASTATIN 45426596881 No Longer Active Tesfaye Sherman MD Active MELOXICAM 7.5 MG TABS 1 tablet by mouth daily M ELOXICAM 37461834985 No Longer Active Tesfaye Sherman MD Active GABAPENTIN 300 MG CAPS Take two tablets by mouth every evening GABAPENTIN 99863214853 No Longer Active Edith Burch MD Active OXYCODONE-ACETAMINOPHEN 5-325 MG TABS Take one tablet by mouth every 6 hours as needed. Max 12 tabs/day as needed OXYCODONE-ACETAMINOP HEN 86347886084 Active Tesfaye Sherman MD Active CLONAZEPAM 0.5 MG TABS Take one tablet in the morning and 1.5 table t at 7pm CLONAZEPAM 62874013149 Active Kayla Cooper MD Active BACLOFEN 10 MG TABS Take one tablet by mouth three times a day BACLOFEN 89154061206 Active Kayla Cooper MD Active GABAPENTIN 300 MG CAPS Take two tablets by mouth every evening GABAPENTIN 300 MG CAPS 772240 GABAPENTIN Inactive MELOXICAM 7.5 MG TABS 1 tablet by mouth daily MELOXICAM 7.5 MG TABS 848002 MELOXICAM Inactive LOVASTATIN 20 MG TABS Take 1 tablet by mouth daily 201 02/12/20 LOVASTATIN 20 MG TABS 541604 LOVASTATIN Inactive DIFLUCAN 150 MG TABS 1 qd DIFLUCAN 150 MG T ABS 367192 FLUCONAZOLE Inactive VITAMIN D3 2000 UNIT TABS 1 daily, for vitamin D deficiency 2014 VITAMIN D3 2000 UNIT TABS CHOLECALCIFEROL Inacti ve AMOXICILLIN 500 MG CAPS 1 cap by mouth three times a day AMOXICILLIN 500 MG CAPS 982890 AMOXICILLIN Inactive BACTRIM DS 800-160 MG TAB 1 tab by mouth twice daily X 10 DAYS 2 BACTRIM DS 800-160 MG TAB 19830105 TRIMETHOPRIM-SULFAMETH OXAZOLE Inactive TRIMETHOPRIM 100 MG TABS 1/2 qd TRIMETHOPRI M 100 MG TABS 19830102 TRIMETHOPRIM Inactive CETIRIZINE HCL 5 MG TABS Take 1 tablet by mouth daily CETIRIZINE HCL 5 MG TABS 7815378 CETIRIZINE HCL Inactive PRAMIPEXOLE DIHYDROCHLORIDE 0.125 MG ORAL TABS take 1 tablet po qhs for restless leg syndrome. PRAMIPEXOLE DIHYDROC HLORIDE 0.125 MG ORAL TABS 517018 PRAMIPEXOLE DIHYDROCHLORIDE Inactive MIRTAZAPINE 15 MG ORAL TABS 1/2 tab by mouth at bedtime. MIRTAZAPINE 15 MG ORAL TABS 216171 MIRTAZAPINE Inactive DIFLUCAN 100 MG TAB 1 tablet by mouth daily X 3 DAYS 2 DIFLUCAN 100 MG TAB 050492 FLUCONAZOLE Inactive DIFLUCAN 100 MG TABS 1 tablet by mouth every other day for 2 dos es DIFLUCAN 100 MG TABS 702129 FLUCONAZOLE Inactive CEFTIN 250 MG TAB 1 tablet twice daily x 7 days 11/19 CEFTIN 250 MG TAB 780204 CEFUROXIME AXETIL Inactive CYMBALTA 30 MG CPEP 1 cap by mouth daily with 60mg 201 05/09/11 CYMBALTA 30 MG CPEP 632697 DULOXETINE HCL Inactive CYMBALTA 60 MG CPEP Take 1 tablet by mouth daily 05/13 CYMBALTA 60 MG CPEP 690421 DULOXETINE HCL Inactive BACTRIM DS 800-160 MG TAB 1 tab by mouth twice daily 2 BACTRIM DS 800-160 MG TAB 19830105 TRIMETHOPRIM-SULFAMETHOXAZOLE Inac tive ZITHROMAX 250 MG TAB 2 po today, then 1 po q days 2-5 ZITHROMAX 250 MG TAB 1195762 AZITHROMYCIN Inactive BACTRIM DS 800-160 MG TAB [...] by mouth daily DIFLUCAN 150 MG TAB 771113 FLUCONAZOLE Inactive BACTRIM DS 800-160 MG TAB 1 tab by mouth twice daily 2 BACTRIM DS 800-160 MG TAB 19830105 TRIMETHOPRIM-SULFAMETHOXAZOLE Inac tive BACTRIM DS 800-160 MG TAB 1 tab by mouth twice daily 2 BACTRIM DS 800-160 MG TAB 19830105 TRIMETHOPRIM-SULFAMETHOXAZOLE Inac tive DIFLUCAN 100 MG TAB 1 tablet by mouth daily DIFLUCAN 100 MG TAB 893208 FLUCONAZOLE Inactive Advance Directives Directive Description Start [...] ... - Chemistry sodium, serum 144 mmol/L 035-124 8506/06/14 carbon dioxide, venous blood 29.4 mmol/L 21.0-32 .0 potassium, serum 4.4 mmol/L 3.5-5.2 chloride, serum 108 mmol/L 98-107 blood glucose 100 mg/dL 65-110 urea nitrogen, blood 9 mg/dL 7-18 creatinine, serum 0.67 mg/dL 0.55-1.30 alanine aminotransferase (SGPT), serum 24 U/L 12-78 aspartate aminotransferase (SGOT), serum 15 U/L 15-37 calcium, serum 9.3 mg/dL 8.5-10.1 bilirubin, serum, total 0.50 mg/dL 0.00-1.00 cholesterol, serum 268 mg/dL 956-468 3610/06/14 triglyceride, serum, fasting 126 mg/dL 30-200 HDL [...] mg/dL Encounters Code Encounter Date Provider Facility CPT-50963 Level 4 Est. Patient 13:56:54 CDT Tesfaye pearson MD [facility] CPT-63622 Level 4 Est. Patient 13:24:25 CDT Stephanie MERCADO [facility] CPT-13682 Level 4 Est. Patient 09:14:56 CDT Tesfaye pearson MD [facility]-70791 Level 4 Est. Patient 18:40:25 FRAME OPERATOR Tesfaye pearson MD [facility]-16998 Level 4 Est. Patient 18:13:07 FRAME OPERATOR Tesfaye pearson MD [facility]-68997 Level 3 Est. Patient 10:46:32 CDT Rj cotto DO [facility]-81376 Level 4 Est. Patient 20:19:25 CDT Tesfaye pearson MD [facility]-07447 Level 3 Est. Patient 09:07:31 CDT Tesfaye pearson MD [facility]-79354 Level 4 Est. Patient 13:12:56 CDT Tesfaye pearson MD [facility]-03229 Level 4 Est. Patient 21:24:55 FRAME OPERATOR Tesfaye pearson MD [facility]-47228 Level 3 Est. Patient 13:45:04 FRAME OPERATOR Tesfaye pearson MD [facility] CPT-65915 Level 4 Est. Patient 13:50:45 CDT Tesfaye pearson MD [facility] CPT-31514 Level 3 Est. Patient 10:16:10 CDT Tesfaye pearson MD [facility] CPT-32754 Level 3 Est. Patient 16:36:07 FRAME OPERATOR Kayla jameson MD [facility]-45199 Level 4 Est. Patient 16:00:14 FRAME OPERATOR Tesfaye pearson MD [facility]-92279 Level 4 Est. Patient 11:02:24 FRAME OPERATOR Tesfaye pearson MD [facility]-67892 Level 3 Est. Patient 20:21:43 FRAME OPERATOR Kayla jameson MD [facility]-55570 Level 3 Est. Patient 13:27:28 FRAME OPERATOR Kayla jameson MD [facility] CPT-33707 Level 4 Est. Patient 15:57:17 FRAME OPERATOR Tesfaye pearson MD [facility] CPT-60050 Level 3 New Patient 13:25:47 CDT Tesfaye kidd MD [facility] CPT-22383 Level 3 New Patient 17:22:21 CDT Kayla angel MD [facility] Procedures Code Procedure Name Date Entry Date Standard Desc ription CPT-39041 Bone Density - XRAY USE ONLY 11:43:58 CDT 2 CPT-61382 Bone Density - XRAY USE ONLY 10:05:16 CDT 2 CPT-26558 Prv Med New Pt 40-64 yrs 18:19:25 CDT 2016 CPT-91721 Foot, right, comp min 3V - XRAY USE ONLY 10:38:34 CDT CPT-G0439 Subsequent Annual Wellness Exam 13:55:04 CDT CPT-G0438 Initial Annual Wellness Exam 11:23:17 CD T CPT-J2930 Solu Medrol 125 mg (Methyl Prednisolone Sodium Succinate) 17:29:12 FRAME OPERATOR CPT-29251 Abx/Therapy Injection 17:29:11 FRAME OPERATOR CPT-J2930 Solu Medrol 125 mg (Methyl Prednisolone Sodium Succinate) 12:34:38 FRAME OPERATOR CPT-J3420 Vitamin B12 1000mcg (Cyanocobalamin) 09:12:55 CDT CPT-J3420 Vitamin B12 1000mcg (Cyanocobalamin) 16:28:06 FRAME OPERATOR CPT-58405 Venipuncture Draw Fee 08:39:53 CDT CPT-J3420 Vitamin B12 1000mcg (Cyanocobalamin) 08:46:22 CDT CPT-29587 Abx/Therapy Injection 08:46:22 CDT CPT-J3420 Vitamin B12 1000mcg (Cyanocobalamin) 08:41:26 CDT CPT-30255 Abx/Therapy Injection 08:41:26 CDT CPT-J3420 Vitamin B12 1000mcg (Cyanocobalamin) 08:57:15 CDT CPT-06251 Abx/Therapy Injection 08:57:15 CDT CPT-J3420 Vitamin B12 1000mcg (Cyanocobalamin) 10:59:03 CDT CPT-81994 Abx/Therapy Injection 10:59:03 CDT CPT-J3420 Vitamin B12 1000mcg (Cyanocobalamin) 15:05:39 CDT CPT-34756 Abx/Therapy Injection 15:05:39 CDT CPT-J3420 Vitamin B12 1000mcg (Cyanocobalamin) 13:50:45 CDT CPT-J3420 Vitamin B12 1000mcg (Cyanocobalamin) 08:48:55 CDT CPT-31074 Abx/Therapy Injection 08:48:55 CDT CPT-J3420 Vitamin B12 1000mcg (Cyanocobalamin) 09:14:54 CDT CPT-13702 Abx/Therapy Injection 09:14:54 CDT CPT-J3420 Vitamin B12 1000mcg (Cyanocobalamin) 09:06:06 CDT CPT-87341 Abx/Therapy Injection 09:06:06 CDT CPT-J3420 Vitamin B12 1000mcg (Cyanocobalamin) 09:49:14 CDT CPT-37957 Abx/Therapy Injection 09:49:14 CDT CPT-J3420 Vitamin B12 1000mcg (Cyanocobalamin) 09:10:30 FRAME OPERATOR CPT-34424 Abx/Therapy Injection 09:10:30 FRAME OPERATOR CPT-J3420 Vitamin B12 1000mcg (Cyanocobalamin) 09:11:07 FRAME OPERATOR CPT-99835 Abx/Therapy Injection 09:11:07 FRAME OPERATOR CPT-J3420 Vitamin B12 1000mcg (Cyanocobalamin) 09:57:03 FRAME OPERATOR CPT-91360 Abx/Therapy Injection 09:57:03 FRAME OPERATOR CPT-J3420 Vitamin B12 1000mcg (Cyanocobalamin) 09:23:21 FRAME OPERATOR CPT-83169 Abx/Therapy Injection 09:23:21 FRAME OPERATOR CPT-61983 Urine Dip (Floor Use Only) 20:21:44 FRAME OPERATOR 201 02/12/11 CPT-84472 UA Dip Auto (Floor Use Only) 10:04:39 FRAME OPERATOR 2 CPT-54164 Urine Dip (Floor Use Only) 13:27:28 FRAME OPERATOR 201 02/12/01 CPT-71623 Bladder Scan 13:27:28 FRAME OPERATOR CPT-78651 Abd single AP View 14:30:51 FRAME OPERATOR CPT-OV Office Visit 10:15:43 CDT CPT-60219 Urine Dip (Floor Use Only) 17:22:21 CDT 201 02/09/02 CPT-17839 Bladder Scan 17:22:21 CDT
--- OUTSIDE RECORDS SUMMARY | 2020-05-05 12:26 | XMS REPORT | Clinical Summary ---
Author Author Jeri Hanley Organization [employer] Address Unknown Phone Unavailable Allergies, Adverse [...] Adriana Arredondo Dysuria Sinusitis 473.9 Active Tesfaye Shreman MD Unspecified sinusitis (chronic) Dysuria 788.1 Active Tesfaye Sherman MD Dysuria Medication List Medication Instructions Start Date Stop Date Generic Name NDC Status Provider Patient Instruction BACTRIM DS 800-160 MG TAB 1 tab by mouth twice daily 2 TRIMETHOPRIM-SULFAMETHOXAZOLE 33775759068 No Longer Active Tesfaye Sherman MD Active DIFLUCAN 150 MG TAB 1 tablet by mouth daily FLU CONAZOLE 01785364401 No Longer Active Tesfaye Sherman MD Active BACTRIM DS 800-160 MG TAB 1 tab by mouth twice daily 2 TRIMETHOPRIM-SULFAMETHOXAZOLE 65437983538 No Longer Active Tesfaye Sherman MD Active ROPINIROLE HCL 0.25 MG ORAL TABS 1 TAB PO Q HS ROPINIROLE HCL 74915006569 Active Tesfaye Sherman MD Active CYMBALTA 30 MG CPEP 1 cap by mouth daily with 60mg DULOXETINE HCL 50004995221 Active Tesfaye Sherman MD Active CEFTIN 250 MG TAB 1 tablet twice daily x 7 days 11/19 CEFUROXIME AXETIL 16724506846 No Longer Active Tesfaye Sherman MD Acti ve DIFLUCAN 100 MG TABS 1 tablet by mouth every other day for 2 dos es FLUCONAZOLE 03531756378 No Longer Active Tesfaye Sherman MD Active DIFLUCAN 100 MG TAB 1 tablet by mouth daily X 3 DAYS 2 FLUCONAZOLE 98244952482 No Longer Active Rj Moss DO Active MIRTAZAPINE 15 MG ORAL TABS 1/2 tab by mouth at bedtime. MIRTAZAPINE 73802803074 No Longer Active Tesfaye Sherman MD Acti ve BACTRIM DS 800-160 MG TAB 1 tab by mouth twice daily 2 TRIMETHOPRIM-SULFAMETHOXAZOLE 49594675904 No Longer Active Tefsaye Sherman MD Active PRAMIPEXOLE DIHYDROCHLORIDE 0.125 MG ORAL TABS take 1 tablet po qhs for restless leg syndrome. PRAMIPEXOLE DIHYDROCHLORIDE 13129627239 No Longer Active Tesfaye Sherman MD Active MAGNESIUM 400 MG ORAL TABS 1 tab po daily MAGNESI UM 35754905262 Active Chelsea Barba APRN Active SUDAFED 24 HOUR 240 MG ORAL [id number] 1 tab po daily PSEUDOEPHEDRINE HCL 00339721816 Active Chelsea Barba APRN A ctive CETIRIZINE HCL 5 MG TABS Take 1 tablet by mouth daily CETIRIZINE HCL 23074100684 No Longer Active Chelsea Barba APRN Acti ve TRIMETHOPRIM 100 MG TABS 1/2 qd TRIMETHOPRIM 79673906537 No Longer Active Chelsea Barba APRN Active BACTRIM DS 800-160 MG TAB 1 tab by mouth twice daily 2 TRIMETHOPRIM-SULFAMETHOXAZOLE 48112332333 No Longer Active Tesfaye Sherman MD Active BACTRIM DS 800-160 MG TAB 1 tab by mouth twice daily X 10 DAYS 2 TRIMETHOPRIM-SULFAMETHOXAZOLE 63189332911 No Longer Active Umer Sherman MD Active AMOXICILLIN 500 MG CAPS 1 cap by mouth three times a day AMOXICILLIN 89047913258 No Longer Active Adriana Arredondo Active MECLIZINE HCL 25 MG TAB one tab po qday prn dizziness MECLIZINE HCL 36078308162 Active Tesfaye Sherman MD Active B-12 1000 MCG ORAL LOZG 1 tab po daily CYANOCOBAL STANTON 02575709199 Active Tesfaye Sherman MD Active VITAMIN D3 2000 UNIT TABS 1 daily, for vitamin D deficiency 2014 CHOLECALCIFEROL 50201164562 No Longer Active Tesfaye Sherman MD Active TIZANIDINE HCL 2 MG TABS take 1-2 tablet by mouth ev at bedtime at 9pm PRN TIZANIDINE HCL 64249750930 Active Tesfaye Owusu Active ZITHROMAX 250 MG TAB 2 po today, then 1 po q days 2-5 AZITHROMYCIN 54872263975 No Longer Active Tesfaye Sherman MD Acti ve BACTRIM DS 800-160 MG TAB 1 tab by mouth twice daily 2 TRIMETHOPRIM-SULFAMETHOXAZOLE 92018587120 No Longer Active Tesfaye Sherman MD Active PRELIEF 340 (65-50) MG (CA-P) ORAL TABS CALCIUM GLYCEROPHOSPHATE 42002429437 Active Tesfaye Sherman MD Active [facility] NIACIN FLUSH FREE 400-100 MG CAPS 1 daily NIACIN-INOSITOL 68311879561 Active Kayla Cooper MD Active DIFLUCAN 150 MG TABS 1 qd FLUCONAZOLE 44196 824680 No Longer Active Kayla Cooper MD Active FLUTICASONE PROPIONATE 50 MCG/ACT SUSP 1 spray each nostril twice daily FLUTICASONE PROPIONATE 21656505819 Active Tesfaye armenta MD Active LOVASTATIN 20 MG TABS Take 1 tablet by mouth daily LOVASTATIN 96180720287 No Longer Active Tesfaye Sherman MD Active MELOXICAM 7.5 MG TABS 1 tablet by mouth daily M ELOXICAM 49132252583 No Longer Active Tesfaye Sherman MD Active GABAPENTIN 300 MG CAPS Take two tablets by mouth every evening GABAPENTIN 57971068198 No Longer Active Edith Burch MD Active OXYCODONE-ACETAMINOPHEN 5-325 MG TABS Take one tablet by mouth every 6 hours as needed. Max 12 tabs/day as needed OXYCODONE-ACETAMINOP HEN 91168869631 Active Tesfaye Sherman MD Active CYMBALTA 60 MG CPEP Take 1 tablet by mouth daily D ULOXETINE HCL 36084619038 Active Kayla Cooper MD Active CLONAZEPAM 0.5 MG TABS Take one tablet in the morning and 1.5 table t at 7pm CLONAZEPAM 45046851463 Active Kayla Cooper MD Active BACLOFEN 10 MG TABS Take one tablet by mouth three times a day BACLOFEN 87216943952 Active Kayla Cooper MD Active GABAPENTIN 300 MG CAPS Take two tablets by mouth every evening GABAPENTIN 300 MG CAPS 585147 GABAPENTIN Inactive MELOXICAM 7.5 MG TABS 1 tablet by mouth daily MELOXICAM 7.5 MG TABS 130585 MELOXICAM Inactive LOVASTATIN 20 MG TABS Take 1 tablet by mouth daily 201 02/12/20 LOVASTATIN 20 MG TABS 117778 LOVASTATIN Inactive DIFLUCAN 150 MG TABS 1 qd DIFLUCAN 150 MG T ABS 425902 FLUCONAZOLE Inactive VITAMIN D3 2000 UNIT TABS 1 daily, for vitamin D deficiency 2014 VITAMIN D3 2000 UNIT TABS CHOLECALCIFEROL Inacti ve AMOXICILLIN 500 MG CAPS 1 cap by mouth three times a day AMOXICILLIN 500 MG CAPS 387108 AMOXICILLIN Inactive BACTRIM DS 800-160 MG TAB 1 tab by mouth twice daily X 10 DAYS 2 BACTRIM DS 800-160 MG TAB 967216 TRIMETHOPRIM-SULFAMETH OXAZOLE Inactive TRIMETHOPRIM 100 MG TABS 1/2 qd TRIMETHOPRI M 100 MG TABS 686965 TRIMETHOPRIM Inactive CETIRIZINE HCL 5 MG TABS Take 1 tablet by mouth daily CETIRIZINE HCL 5 MG TABS 0802579 CETIRIZINE HCL Inactive PRAMIPEXOLE DIHYDROCHLORIDE 0.125 MG ORAL TABS take 1 tablet po qhs for restless leg syndrome. PRAMIPEXOLE DIHYDROC HLORIDE 0.125 MG ORAL TABS 945939 PRAMIPEXOLE DIHYDROCHLORIDE Inactive MIRTAZAPINE 15 MG ORAL TABS 1/2 tab by mouth at bedtime. MIRTAZAPINE 15 MG ORAL TABS 151267 MIRTAZAPINE Inactive DIFLUCAN 100 MG TAB 1 tablet by mouth daily X 3 DAYS 2 DIFLUCAN 100 MG TAB 505763 FLUCONAZOLE Inactive DIFLUCAN 100 MG TABS 1 tablet by mouth every other day for 2 dos es DIFLUCAN 100 MG TABS 629106 FLUCONAZOLE Inactive CEFTIN 250 MG TAB 1 tablet twice daily x 7 days 11/19 CEFTIN 250 MG TAB 098213 CEFUROXIME AXETIL Inactive BACTRIM DS 800-160 MG TAB 1 tab by mouth twice daily 2 BACTRIM DS 800-160 MG TAB 177379 TRIMETHOPRIM-SULFAMETHOXAZOLE Inac tive ZITHROMAX 250 MG TAB 2 po today, then 1 po q days 2-5 ZITHROMAX 250 MG TAB 1180759 AZITHROMYCIN Inactive BACTRIM DS 800-160 MG TAB [...] mg/dL Encounters Code Encounter Date Provider Facility CPT-[id number] Level 4 Est. Patient 18:40:25 LOGISTICS INTERN Tesfaye pearson MD [facility] CPT-60144 Level 4 Est. Patient 18:13:07 LOGISTICS INTERN Tesfaye pearson MD [facility] CPT-27006 Level 3 Est. Patient 10:46:32 CDT Rj cotto DO [facility] CPT-86472 Level 4 Est. Patient 20:19:25 CDT Tesfaye pearson MD [facility] CPT-91191 Level 3 Est. Patient 09:07:31 CDT [facility] Patient 13:12:56 CDT Tesfaye pearson MD [facility]-73099 Level 4 Est. Patient 21:24:55 LOGISTICS INTERN Tesfaye pearson MD [facility]-31681 Level 3 Est. Patient 13:45:04 LOGISTICS INTERN Tesfaey pearson MD [facility] CPT-91322 Level 4 Est. Patient 13:50:45 CDT Tesfaye pearson MD [facility] CPT-21607 Level 3 Est. Patient 10:16:10 CDT Tesfaye pearson MD [facility]-56779 Level 3 Est. Patient 16:36:07 LOGISTICS INTERN Kayla jameson MD [facility]-81353 Level 4 Est. Patient 16:00:14 LOGISTICS INTERN Tesfaye pearson MD [facility]-45495 Level 4 Est. Patient 11:02:24 LOGISTICS INTERN Tesfaye pearson MD [facility] CPT-23069 Level 3 Est. Patient 20:21:43 LOGISTICS INTERN Kayla jameson MD [facility]-10844 Level 3 Est. Patient 13:27:28 LOGISTICS INTERN Kayla jameson MD [facility]-08273 Level 4 Est. Patient 15:57:17 LOGISTICS INTERN Tesfaye pearson MD [facility] CPT-19945 Level 3 New Patient 13:25:47 CDT Tesfaye kidd MD [facility] CPT-37076 Level 3 New Patient 17:22:21 CDT Kayla angel MD [facility] Procedures Code Procedure Name Date Entry Date Standard Desc ription CPT-G0438 Initial Annual Wellness Exam 11:23:17 CD T CPT-J2930 Solu Medrol 125 mg (Methyl Prednisolone Sodium Succinate) 17:29:12 LOGISTICS INTERN CPT-72717 Abx/Therapy Injection 17:29:11 LOGISTICS INTERN CPT-J2930 Solu Medrol 125 mg (Methyl Prednisolone Sodium Succinate) 12:34:38 LOGISTICS INTERN CPT-J3420 Vitamin B12 1000mcg (Cyanocobalamin) 09:12:55 CDT CPT-J3420 Vitamin B12 1000mcg (Cyanocobalamin) 16:28:06 LOGISTICS INTERN CPT-32874 Venipuncture Draw Fee 08:39:53 CDT CPT-J3420 Vitamin B12 1000mcg (Cyanocobalamin) 08:46:22 CDT CPT-13799 Abx/Therapy Injection 08:46:22 CDT CPT-J3420 Vitamin B12 1000mcg (Cyanocobalamin) 08:41:26 CDT CPT-55721 Abx/Therapy Injection 08:41:26 CDT CPT-J3420 Vitamin B12 1000mcg (Cyanocobalamin) 08:57:15 CDT CPT-93266 Abx/Therapy Injection 08:57:15 CDT CPT-J3420 Vitamin B12 1000mcg (Cyanocobalamin) 10:59:03 CDT CPT-52222 Abx/Therapy Injection 10:59:03 CDT CPT-J3420 Vitamin B12 1000mcg (Cyanocobalamin) 15:05:39 CDT CPT-72871 Abx/Therapy Injection 15:05:39 CDT CPT-J3420 Vitamin B12 1000mcg (Cyanocobalamin) 13:50:45 CDT CPT-J3420 Vitamin B12 1000mcg (Cyanocobalamin) 08:48:55 CDT CPT-74807 Abx/Therapy Injection 08:48:55 CDT CPT-J3420 Vitamin B12 1000mcg (Cyanocobalamin) 09:14:54 CDT CPT-94985 Abx/Therapy Injection 09:14:54 CDT CPT-J3420 Vitamin B12 1000mcg (Cyanocobalamin) 09:06:06 CDT CPT-44623 Abx/Therapy Injection 09:06:06 CDT CPT-J3420 Vitamin B12 1000mcg (Cyanocobalamin) 09:49:14 CDT CPT-73704 Abx/Therapy Injection 09:49:14 CDT CPT-J3420 Vitamin B12 1000mcg (Cyanocobalamin) 09:10:30 LOGISTICS INTERN CPT-24635 Abx/Therapy Injection 09:10:30 LOGISTICS INTERN CPT-J3420 Vitamin B12 1000mcg (Cyanocobalamin) 09:11:07 LOGISTICS INTERN CPT-28924 Abx/Therapy Injection 09:11:07 LOGISTICS INTERN CPT-J3420 Vitamin B12 1000mcg (Cyanocobalamin) 09:57:03 LOGISTICS INTERN CPT-01675 Abx/Therapy Injection 09:57:03 LOGISTICS INTERN CPT-J3420 Vitamin B12 1000mcg (Cyanocobalamin) 09:23:21 LOGISTICS INTERN CPT-89937 Abx/Therapy Injection 09:23:21 LOGISTICS INTERN CPT-32705 Urine Dip (Floor Use Only) 20:21:44 LOGISTICS INTERN 201 02/12/11 CPT-83309 UA Dip Auto (Floor Use Only) 10:04:39 LOGISTICS INTERN 2 CPT-01070 Urine Dip (Floor Use Only) 13:27:28 LOGISTICS INTERN 201 02/12/01 CPT-02629 Bladder Scan 13:27:28 LOGISTICS INTERN CPT-21220 Abd single AP View 14:30:51 LOGISTICS INTERN CPT-OV Office Visit 10:15:43 CDT CPT-38546 Urine Dip (Floor Use Only) 17:22:21 CDT 201 02/09/02 CPT-95054 Bladder Scan 17:22:21 CDT
--- OUTSIDE RECORDS SUMMARY | 2020-05-05 12:27 | XMS REPORT | Clinical Summary ---
Author Author Jeri Hanley Organization [facility] Address Unknown Phone Unavailable Allergies, Adverse Reactions, [...] epi sode, unspecified degree URI 465.9 Active Tsefaye Sherman MD Acute upper respiratory infections of unspecified site Osteopenia 733.90 Active Tesfaye Sherman MD Disorder of bone and cartilage, unspecified Medication List Medication Instructions Start Date Stop Date Generic Name NDC Status Provider Patient Instruction OXYCODONE-ACETAMINOPHEN 5-325 MG ORAL TABLET Take one tablet by mouth every 6 hours as needed. Use sparingly OXYCODONE-ACETAMINOPHEN 65672957298 Active Tesfaye Sherman MD Active PREDNISONE 20 MG ORAL TABLET 1 tab twice daily for 3 d ay, then one daily for three days PREDNISONE 43338657567 No Longer Active Tesfaye Sherman MD Active PROAIR HFA 108 (90 BASE) MCG/ACT INHALATION AEROSOL SO LUTION 1 puff every 6 hours as needed ALBUTEROL SULFATE 38668489660 Active [place] nda Raida Active MECLIZINE HCL 25 MG ORAL TABLET one 4 times a day as needed for dizziness MECLIZINE HCL 28608312060 Active Laurence Raida Active DIFLUCAN 100 MG ORAL TABLET 1 tablet by mouth daily FLUCONAZOLE 10710575128 Active Laurence Raida Active AMOXICILLIN 500 MG ORAL CAPSULE 1 cap by mouth three times a day AMOXICILLIN 85826097925 No Longer Active Laurence Raida Acti ve VENLAFAXINE HCL 75 MG ORAL TABLET 1 am 1/2 at noon VENLAFAXINE HCL 16856551330 Active Tesfaye Sherman MD Active DIFLUCAN 100 MG ORAL TABLET 1 tablet by mouth daily 20 19/08/26 FLUCONAZOLE 72763745168 No Longer Active Tesfaye Sherman MD Acti ve BACTRIM DS 800-160 MG ORAL TABLET 1 tab by mouth twice daily 201 05/10/28 TRIMETHOPRIM-SULFAMETHOXAZOLE 34589271613 No Longer Active A mirna Angelica Active FOSAMAX 70 MG ORAL TABLET 1 po qweek. Take 30min prio r to first food/drink. Avoid lying down x 1 hour. ALENDRONATE SODIUM 07661604 144 No Longer Active Laurence Lopezduyen Active REPHRESH PRO-B ORAL CAPSULE 1 tablet daily LACT OBACILLUS 04373140249 Active Edith Burch MD Active CYMBALTA 60 MG ORAL CAPSULE DELAYED RELEASE PARTICLES Take 1 tablet by mouth daily DULOXETINE HCL 97895520001 No Longer Active Edith Burch MD Active CYMBALTA 30 MG ORAL CAPSULE DELAYED RELEASE PARTICLES 1 cap by mouth daily with 60mg DULOXETINE HCL 33518623656 No Longer Active Jordan Burch MD Active FISH OIL 1000 MG ORAL CAPSULE DELAYED RELEASE 1 pill b y mouth daily for cholesterol OMEGA-3 FATTY ACIDS 26447825496 Active Cee Jaffe LPN Active RED YEAST RICE 600 MG ORAL CAPSULE 1 pill by mouth daily RED YEAST RICE EXTRACT 77752265846 Active Rosa Jaffe LPN Activ e DIFLUCAN 100 MG ORAL TABLET 1 tablet by mouth daily 20 19/03/05 FLUCONAZOLE 40334917715 No Longer Active Tesfaye Sherman MD Acti ve BACTRIM DS 800-160 MG ORAL TABLET 1 tab by mouth twice daily 201 05/06/28 TRIMETHOPRIM-SULFAMETHOXAZOLE 03529305745 No Longer Active Umer Sherman MD Active BACTRIM DS 800-160 MG ORAL TABLET 1 tab by mouth twice daily 201 05/04/15 TRIMETHOPRIM-SULFAMETHOXAZOLE 97763458785 No Longer Active Umer Sherman MD Active DIFLUCAN 150 MG ORAL TABLET 1 tablet by mouth daily 20 18/09/20 FLUCONAZOLE 46034026039 No Longer Active Tesfaye Sherman MD Acti ve BACTRIM DS 800-160 MG ORAL TABLET 1 tab by mouth twice daily 201 04/13/17 TRIMETHOPRIM-SULFAMETHOXAZOLE 24214832786 No Longer Active Umer Sherman MD Active ROPINIROLE HCL 0.25 MG ORAL TABLET 1 TAB PO Q HS ROPINIROLE HCL 03317505886 Active Tesfaye Sherman MD Active CEFTIN 250 MG ORAL TABLET 1 tablet twice daily x 7 days CEFUROXIME AXETIL 73034664114 No Longer Active Tesfaye Sherman MD Active DIFLUCAN 100 MG ORAL TABLET 1 tablet by mouth every other da y for 2 doses FLUCONAZOLE 39990888331 No Longer Active Tesfaye barron MD Active DIFLUCAN 100 MG ORAL TABLET 1 tablet by mouth daily X 3 DAYS 201 04/09/01 FLUCONAZOLE 10069782596 No Longer Active Rj Lyons tive MIRTAZAPINE 15 MG ORAL TABLET 1/2 tab by mouth at bedtime. 03/13 MIRTAZAPINE 09386022486 No Longer Active Tesfaye Sherman MD Active BACTRIM DS 800-160 MG ORAL TABLET 1 tab by mouth twice daily 201 04/09/01 TRIMETHOPRIM-SULFAMETHOXAZOLE 58004688837 No Longer Active Umer Sherman MD Active PRAMIPEXOLE DIHYDROCHLORIDE 0.125 MG ORAL TABLET take 1 tablet po qhs for restless leg syndrome. PRAMIPEXOLE DIHYDROCHLORI DE 57266252594 No Longer Active Tesfaye Sherman MD Active MAGNESIUM 400 MG ORAL TABLET 1 tab po daily MAGNE SIUM 91182127094 Active Chelsea Barba APRN Active SUDAFED 24 HOUR 240 MG ORAL TABLET EXTENDED RELEASE 24 HOUR 1 tab po daily PSEUDOEPHEDRINE HCL 79005954292 Active Chelsea NAPOLES RN Active CETIRIZINE HCL 5 MG ORAL TABLET Take 1 tablet by mouth daily CETIRIZINE HCL 82655254699 No Longer Active Chelsea Barba APRN Ac tive TRIMETHOPRIM 100 MG ORAL TABLET 1/2 qd TRIM ETHOPRIM 84619592320 No Longer Active Chelsea Barba APRN Active BACTRIM DS 800-160 MG ORAL TABLET 1 tab by mouth twice daily 201 04/04/11 TRIMETHOPRIM-SULFAMETHOXAZOLE 62898727143 No Longer Active Umer Sherman MD Active BACTRIM DS 800-160 MG ORAL TABLET 1 tab by mouth twice daily X 10 DAYS TRIMETHOPRIM-SULFAMETHOXAZOLE 20630700429 No Longer Active Tesfaye Sherman MD Active AMOXICILLIN 500 MG ORAL CAPSULE 1 cap by mouth three times a day AMOXICILLIN 09095810797 No Longer Active Adriana Arredondo Active MECLIZINE HCL 25 MG ORAL TABLET one tab po qday prn dizziness 09/08 MECLIZINE HCL 66816619167 Active Tesfaye Sherman MD Active B-12 1000 MCG ORAL LOZENGE 1 tab po daily CYANO COBALAMIN 15186725703 Active Tesfaye Sherman MD Active VITAMIN D3 2000 UNIT ORAL TABLET 1 daily, for vitamin D deficien cy CHOLECALCIFEROL 62617268749 No Longer Active Tesfaye Sherman MD Active TIZANIDINE HCL 2 MG ORAL TABLET take 1-[address] [facility] every day at bedtime at 9pm PRN TIZANIDINE HCL 36758548338 Active Tesfaye hewitt MD Active ZITHROMAX 250 MG ORAL TABLET 2 po today, then 1 po q days 2-5 20 15/02/10 AZITHROMYCIN 55534577041 No Longer Active Tesfaye Sherman MD Active BACTRIM DS 800-160 MG ORAL TABLET 1 tab by mouth twice daily 201 03/03/23 TRIMETHOPRIM-SULFAMETHOXAZOLE 16995178861 No Longer Active Umer Sherman MD Active PRELIEF 340 (65-50) MG (CA-P) ORAL TABLET CALCIUM GLYCEROPHOSPHATE 42926523891 Active Tesfaye Sherman MD Acti ve [facility] NIACIN FLUSH FREE 400-100 MG ORAL CAPSULE 1 daily NIACIN-INOSITOL 00162285796 Active Kayla Cooper MD Activ e DIFLUCAN 150 MG ORAL TABLET 1 qd FLUCONAZOL E 23627537704 No Longer Active Kayla Cooper MD Active FLUTICASONE PROPIONATE 50 MCG/ACT NASAL SUSPENSION 1 spray each nostril twice daily FLUTICASONE PROPIONATE 43739615351 Active D patricia Sherman MD Active LOVASTATIN 20 MG ORAL TABLET Take 1 tablet by mouth daily LOVASTATIN 52623250312 No Longer Active Tesfaye Sherman MD Acti ve MELOXICAM 7.5 MG ORAL TABLET 1 tablet by mouth daily 2 MELOXICAM 14766080474 No Longer Active Tesfaye Sherman MD Acti ve GABAPENTIN 300 MG ORAL CAPSULE Take two tablets by mouth every e vening GABAPENTIN 32105041588 No Longer Active Edith Burch MD A ctive CLONAZEPAM 0.5 MG ORAL TABLET Take one tablet in the m orning and 1.5 tablet at 7pm CLONAZEPAM 80306143819 Active Kayla Cooper MD Active BACLOFEN 10 MG ORAL TABLET Take one tablet by mouth three times a d ay BACLOFEN 42232603705 Active Kayla Cooper MD Active GABAPENTIN 300 MG ORAL CAPSULE Take two tablets by mouth every e vening GABAPENTIN 300 MG ORAL CAPSULE 974824 GABAPENTIN I nactive MELOXICAM 7.5 MG ORAL TABLET 1 tablet by mouth daily 2 MELOXICAM 7.5 MG ORAL TABLET 123029 MELOXICAM Inactive LOVASTATIN 20 MG ORAL TABLET Take 1 tablet by mouth daily LOVASTATIN 20 MG ORAL TABLET 853386 LOVASTATIN Inactive DIFLUCAN 150 MG ORAL TABLET 1 qd DIFLUCAN 150 MG ORAL TABLET 999952 FLUCONAZOLE Inactive VITAMIN D3 2000 UNIT ORAL TABLET 1 daily, for vitamin D deficien cy VITAMIN D3 2000 UNIT ORAL TABLET CHOLECALCIFEROL Inactive AMOXICILLIN 500 MG ORAL CAPSULE 1 cap by mouth three times a day AMOXICILLIN 500 MG ORAL CAPSULE 001531 AMOXICILLIN Inactive BACTRIM DS 800-160 MG ORAL TABLET 1 tab by mouth twice daily X 10 DAYS BACTRIM DS 800-160 MG ORAL TABLET 479099 TRIMETHOPRIM-SULFAMETHOXAZOLE Inactive TRIMETHOPRIM 100 MG ORAL TABLET 1/2 qd 7 TRIMETHOPRIM 100 MG ORAL TABLET 049365 TRIMETHOPRIM Inactive CETIRIZINE HCL 5 MG ORAL TABLET Take 1 tablet by mouth daily CETIRIZINE HCL 5 MG ORAL TABLET 0698461 CETIRIZINE HCL Inactive PRAMIPEXOLE DIHYDROCHLORIDE 0.125 MG ORAL TABLET take 1 tablet po qhs for restless leg syndrome. PRAMIPEXOLE DIHYD ROCHLORIDE 0.125 MG ORAL TABLET 114779 PRAMIPEXOLE DIHYDROCHLORIDE Inactive MIRTAZAPINE 15 MG ORAL TABLET 1/2 tab by mouth at bedtime. 03/13 MIRTAZAPINE 15 MG ORAL TABLET 175279 MIRTAZAPINE In active DIFLUCAN 100 MG ORAL TABLET 1 tablet by mouth daily X 3 DAYS 201 04/09/01 DIFLUCAN 100 MG ORAL TABLET 384757 FLUCONAZOLE Inac tive DIFLUCAN 100 MG ORAL TABLET 1 tablet by mouth every other da y for 2 doses DIFLUCAN 100 MG ORAL TABLET 833471 FLUCONAZOLE Inactive CEFTIN 250 MG ORAL TABLET 1 tablet twice daily x 7 days CEFTIN 250 MG ORAL TABLET 645585 CEFUROXIME AXETIL Inactive CYMBALTA 30 MG ORAL CAPSULE DELAYED RELEASE PARTICLES 1 cap by mouth daily with 60mg CYMBALTA 30 MG ORAL CAPSULE DELAYED RELEASE PARTICLES 625962 DULOXETINE HCL Inactive CYMBALTA 60 MG ORAL CAPSULE DELAYED RELEASE PARTICLES Take 1 tablet by mouth daily CYMBALTA 60 MG ORAL CAPSULE DELAYED RELEA SE PARTICLES 334092 DULOXETINE HCL Inactive FOSAMAX 70 MG ORAL TABLET 1 po qweek. Take 30min prio r to first food/drink. Avoid lying down x 1 hour. FOSAMAX 70 MG ORAL TA BLET 069522 ALENDRONATE SODIUM Inactive DIFLUCAN 100 MG ORAL TABLET 1 tablet by mouth daily 19/08/26 DIFLUCAN 100 MG ORAL TABLET 19760711 FLUCONAZOLE Inactive PREDNISONE 20 MG ORAL TABLET 1 tab twice daily for 3 d ay, then one daily for three days PREDNISONE 20 MG ORAL TABLET 610207 PREDNIS ONE Inactive BACTRIM DS 800-160 MG ORAL TABLET 1 tab by mouth twice daily 201 03/03/23 BACTRIM DS 800-160 MG ORAL TABLET 19830105 TRIMETHOPRIM-SULFAMETHOXAZOLE Inactive ZITHROMAX 250 MG ORAL TABLET 2 po today, then 1 po q days 2-5 20 15/02/10 ZITHROMAX 250 MG ORAL TABLET 589139 AZITHROMYCIN Mayela ctive BACTRIM DS 800-160 MG ORAL TABLET 1 tab by mouth twice daily 201 04/04/11 BACTRIM DS 800-160 MG ORAL TABLET 19830105 TRIMETHOPRIM-SULFAMETHOXAZOLE Inactive BACTRIM DS 800-160 MG ORAL TABLET 1 tab by mouth twice daily 201 04/09/01 BACTRIM DS 800-160 MG ORAL TABLET 042527 TRIMETHOPRIM-SULFAMETHOXAZOLE Inactive BACTRIM DS 800-160 MG ORAL TABLET 1 tab by mouth twice daily 201 04/13/17 BACTRIM DS 800-160 MG ORAL TABLET 117733 TRIMETHOPRIM-SULFAMETHOXAZOLE Inactive DIFLUCAN 150 MG ORAL TABLET 1 tablet by mouth daily 20 18/09/20 DIFLUCAN 150 MG ORAL TABLET 19760712 FLUCONAZOLE Inactive BACTRIM DS 800-160 MG ORAL TABLET 1 tab by mouth twice daily 201 05/04/15 BACTRIM DS 800-160 MG ORAL TABLET 434893 TRIMETHOPRIM-SULFAMETHOXAZOLE Inactive BACTRIM DS 800-160 MG ORAL TABLET 1 tab by mouth twice daily 201 05/06/28 BACTRIM DS 800-160 MG ORAL TABLET 894203 TRIMETHOPRIM-SULFAMETHOXAZOLE Inactive DIFLUCAN 100 MG ORAL TABLET 1 tablet by mouth daily 20 19/03/05 DIFLUCAN 100 MG ORAL TABLET 19760711 FLUCONAZOLE Inactive BACTRIM DS 800-160 MG ORAL TABLET 1 tab by mouth twice daily 201 05/10/28 BACTRIM DS 800-160 MG ORAL TABLET 19830105 TRIMETHOPRIM-SULFAMETHOXAZOLE Inactive AMOXICILLIN 500 MG ORAL CAPSULE 1 cap by mouth three times a day AMOXICILLIN 500 MG ORAL CAPSULE 152375 AMOXICILLIN Inactive Advance Directives Directive Description Start Date PERMISSION TO SHARE DISCUSSED WITH PATIENT -- NO DECISION MADE DURABLE POWER OF RN [facility] FOR HEALTHCARE Vital Signs Date Name Value [...] 11 .6-14.8 platelet count 349 10^3/MM^3 10*3/mm3 306-732 7720/06/14 erythrocyte (RBC) count 4.91 10^6/MM^3 10*6/mm3 3.80-5.8 0 lymphocytes as percent of blood leukocytes 28.7 % 20.5-51.1 monocytes as percent of blood leukocytes 8.7 % 1.7-9.3 neutrophils as percent of blood leukocytes 56.3 % 42.2-75.2 leukocyte count, blood 8.8 10^3/MM^3 10*3/mm3 4.6-10.2 Lab Report: Comp. Metabolic Panel, Lipid Panel, Thyroid Stimulating Horm ... - Chemistry sodium, serum 144 mmol/L 004-452 6048/06/14 creatinine, serum 0.67 mg/dL 0.55-1.30 alanine aminotransferase (SGPT), serum 24 U/L 12-78 aspartate aminotransferase (SGOT), serum 15 U/L 15-37 calcium, serum 9.3 mg/dL 8.5-10.1 bilirubin, serum, total 0.50 mg/dL 0.00-1.00 cholesterol, serum 268 mg/dL 375-389 1651/06/14 triglyceride, serum, fasting 126 mg/dL 30-200 HDL cholesterol, serum 51 mg/dL 32-96 LDL cholesterol, serum 192 mg/dL 0-130 TSH 0.83 m[iU]/mL 0.36-3.74 thyroxine, serum, free 1.03 ng/dL 0.76-1.46 uric acid, serum 3.2 mg/dL 2.6-7.2 carbon dioxide, venous blood 29.4 mmol/L 21.0-32 .0 potassium, serum 4.4 mmol/L 3.5-5.2 chloride, serum 108 mmol/L 98-107 blood glucose 100 mg/dL 65-110 urea nitrogen, blood 9 mg/dL 7- Lab Report: Comp. Metabolic Panel, [facility] - Chemistry sodium, serum 141 mmol/L 762-646 3155/01/26 carbon dioxide, venous blood 29.5 mmol/L 21.0-32 [...] mg/dL Encounters Code Encounter Date Provider Facility CPT-39458 Level 4 Est. Patient 14:44:33 GEOMETRY TUTOR Tesfaye pearson MD [facility] CPT-12942 Level 4 Est. Patient 13:55:29 GEOMETRY TUTOR Tesfaye pearson MD [facility] CPT-32847 Level 4 Est. Patient 17:07:34 GEOMETRY TUTOR Tesfaye pearson MD [facility] CPT-85438 Level 4 Est. Patient 13:56:54 CDT Tesfaye pearson MD [facility] CPT-13557 Level 4 Est. Patient 13:24:25 CDT Stephanie MERCADO [facility] CPT-69265 Level 4 Est. Patient 09:14:56 CDT Tesfaye pearson MD [facility] CPT-51438 Level 4 Est. Patient 18:40:25 GEOMETRY TUTOR Tesfaye pearson MD [facility] CPT-63423 Level 4 Est. Patient 18:13:07 GEOMETRY TUTOR Tesfaye pearson MD [facility] CPT-34128 Level 3 Est. Patient 10:46:32 CDT Rj cotto DO [facility] CPT-50206 Level 4 Est. Patient 20:19:25 CDT Tesfaye pearson MD [facility] CPT-85707 Level 3 Est. Patient 09:07:31 CDT Tesfaye pearson MD [facility]-12237 Level 4 Est. Patient 13:12:56 CDT Tesfaye pearson MD [facility]-22799 Level 4 Est. Patient 21:24:55 GEOMETRY TUTOR Tesfaye pearson MD [facility]-24579 Level 3 Est. Patient 13:45:04 GEOMETRY TUTOR Tesfaye pearson MD [facility] CPT-38572 Level 4 Est. Patient 13:50:45 CDT Tesfaye pearson MD [facility] CPT-47977 Level 3 Est. Patient 10:16:10 CDT Tesfaye pearson MD [facility] CPT-63414 Level 3 Est. Patient 16:36:07 GEOMETRY TUTOR Kayla jameson MD [facility]-51505 Level 4 Est. Patient 16:00:14 GEOMETRY TUTOR Tesfaye pearson MD [facility]-96466 Level 4 Est. Patient 11:02:24 GEOMETRY TUTOR Tesfaye pearson MD [facility] CPT-69141 Level 3 Est. Patient 20:21:43 GEOMETRY TUTOR Kayla jameson MD [facility]-89523 Level 3 Est. Patient 13:27:28 GEOMETRY TUTOR Kayla jameson MD [facility]-43488 Level 4 Est. Patient 15:57:17 GEOMETRY TUTOR Tesfaye pearson MD [facility] CPT-15553 Level 3 New Patient 13:25:47 CDT Tesfaye kidd MD [facility] CPT-75828 Level 3 New Patient 17:22:21 CDT Kayla angel MD [facility] Procedures Code Procedure Name Date Entry Date Standard Desc ription CPT-13566 Bone Density - XRAY USE ONLY 11:43:58 CDT 2 CPT-63890 Bone Density - XRAY USE ONLY 10:05:16 CDT 2 CPT-56033 Prv Med New Pt 40-64 yrs 18:19:25 CDT 2016 CPT-97382 Foot, right, comp min 3V - XRAY USE ONLY 10:38:34 CDT CPT-G0439 Subsequent Annual Wellness Exam 13:55:04 CDT CPT-G0438 Initial Annual Wellness Exam 11:23:17 CD T CPT-J2930 Solu Medrol 125 mg (Methyl Prednisolone Sodium Succinate) 17:29:12 GEOMETRY TUTOR CPT-84838 Abx/Therapy Injection 17:29:11 GEOMETRY TUTOR CPT-J2930 Solu Medrol 125 mg (Methyl Prednisolone Sodium Succinate) 12:34:38 GEOMETRY TUTOR CPT-J3420 Vitamin B12 1000mcg (Cyanocobalamin) 09:12:55 CDT CPT-J3420 Vitamin B12 1000mcg (Cyanocobalamin) 16:28:06 GEOMETRY TUTOR CPT-44040 Venipuncture Draw Fee 08:39:53 CDT CPT-J3420 Vitamin B12 1000mcg (Cyanocobalamin) 08:46:22 CDT CPT-44299 Abx/Therapy Injection 08:46:22 CDT CPT-J3420 Vitamin B12 1000mcg (Cyanocobalamin) 08:41:26 CDT CPT-00723 Abx/Therapy Injection 08:41:26 CDT CPT-J3420 Vitamin B12 1000mcg (Cyanocobalamin) 08:57:15 CDT CPT-61141 Abx/Therapy Injection 08:57:15 CDT CPT-J3420 Vitamin B12 1000mcg (Cyanocobalamin) 10:59:03 CDT CPT-45435 Abx/Therapy Injection 10:59:03 CDT CPT-J3420 Vitamin B12 1000mcg (Cyanocobalamin) 15:05:39 CDT CPT-14178 Abx/Therapy Injection 15:05:39 CDT CPT-J3420 Vitamin B12 1000mcg (Cyanocobalamin) 13:50:45 CDT CPT-J3420 Vitamin B12 1000mcg (Cyanocobalamin) 08:48:55 CDT CPT-66121 Abx/Therapy Injection 08:48:55 CDT CPT-J3420 Vitamin B12 1000mcg (Cyanocobalamin) 09:14:54 CDT CPT-55356 Abx/Therapy Injection 09:14:54 CDT CPT-J3420 Vitamin B12 1000mcg (Cyanocobalamin) 09:06:06 CDT CPT-87464 Abx/Therapy Injection 09:06:06 CDT CPT-J3420 Vitamin B12 1000mcg (Cyanocobalamin) 09:49:14 CDT CPT-07795 Abx/Therapy Injection 09:49:14 CDT CPT-J3420 Vitamin B12 1000mcg (Cyanocobalamin) 09:10:30 GEOMETRY TUTOR CPT-26797 Abx/Therapy Injection 09:10:30 GEOMETRY TUTOR CPT-J3420 Vitamin B12 1000mcg (Cyanocobalamin) 09:11:07 GEOMETRY TUTOR CPT-15389 Abx/Therapy Injection 09:11:07 GEOMETRY TUTOR CPT-J3420 Vitamin B12 1000mcg (Cyanocobalamin) 09:57:03 GEOMETRY TUTOR CPT-66885 Abx/Therapy Injection 09:57:03 GEOMETRY TUTOR CPT-J3420 Vitamin B12 1000mcg (Cyanocobalamin) 09:23:21 GEOMETRY TUTOR CPT-30960 Abx/Therapy Injection 09:23:21 GEOMETRY TUTOR CPT-97683 Urine Dip (Floor Use Only) 20:21:44 GEOMETRY TUTOR 201 02/12/11 CPT-18252 UA Dip Auto (Floor Use Only) 10:04:39 GEOMETRY TUTOR 2 CPT-27665 Urine Dip (Floor Use Only) 13:27:28 GEOMETRY TUTOR 201 02/12/01 CPT-59861 Bladder Scan 13:27:28 GEOMETRY TUTOR CPT-74040 Abd single AP View 14:30:51 GEOMETRY TUTOR CPT-OV Office Visit 10:15:43 CDT CPT-59716 Urine Dip (Floor Use Only) 17:22:21 CDT 201 02/09/02 CPT-94433 Bladder Scan 17:22:21 CDT
--- OUTSIDE RECORDS SUMMARY | 2020-05-05 12:27 | XMS REPORT | Clinical Summary ---
Author Author Talon, Jeri Wood Organization [employer] 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 Use sparingly OXYCODONE-ACETAMINOPHEN 44206523630 Active Tesfaye Sherman MD Active PREDNISONE 20 MG ORAL TABLET 1 tab twice daily for 3 d ay, then one daily for three days PREDNISONE 80342037890 No Longer Active Tesfaye Sherman MD Active PROAIR HFA 108 (90 BASE) MCG/ACT INHALATION AEROSOL SO LUTION 1 puff every 6 hours as needed ALBUTEROL SULFATE 05593429737 Active [place] nda Raida Active MECLIZINE HCL 25 MG ORAL TABLET one 4 times a day as needed for dizziness MECLIZINE HCL 09803649062 Active Laurence Raduyen Active DIFLUCAN 100 MG ORAL TABLET 1 tablet by mouth daily FLUCONAZOLE 42442653420 Active Laurenceyohana Dominguez Active AMOXICILLIN 500 MG ORAL CAPSULE 1 cap by mouth three times a day AMOXICILLIN 43220523955 No Longer Active Laurenceyohana Dominguez Acti ve VENLAFAXINE HCL 75 MG ORAL TABLET 1 am 1/2 at noon VENLAFAXINE HCL 27472035764 Active Tesfaye Sherman MD Active DIFLUCAN 100 MG ORAL TABLET 1 tablet by mouth daily 20 19/08/26 FLUCONAZOLE 69764518203 No Longer Active Tesfaye Sherman MD Acti ve BACTRIM DS 800-160 MG ORAL TABLET 1 tab by mouth twice daily 201 05/10/28 TRIMETHOPRIM-SULFAMETHOXAZOLE 46000930573 No Longer Active A mirna Dominguez Active FOSAMAX 70 MG ORAL TABLET 1 po qweek. Take 30min prio r to first food/drink. Avoid lying down x 1 hour. ALENDRONATE SODIUM 54044078 144 No Longer Active Laurence Raida Active REPHRESH PRO-B ORAL CAPSULE 1 tablet daily LACT OBACILLUS 06665589944 Active Edith Burch MD Active CYMBALTA 60 MG ORAL CAPSULE DELAYED RELEASE PARTICLES Take 1 tablet by mouth daily DULOXETINE HCL 29455549844 No Longer Active Edith Burch MD Active CYMBALTA 30 MG ORAL CAPSULE DELAYED RELEASE PARTICLES 1 cap by mouth daily with 60mg DULOXETINE HCL 03699561672 No Longer Active Jordan Burch MD Active FISH OIL 1000 MG ORAL CAPSULE DELAYED RELEASE 1 pill b y mouth daily for cholesterol OMEGA-3 FATTY ACIDS 60035172943 Active Cee Jaffe LPN Active RED YEAST RICE 600 MG ORAL CAPSULE 1 pill by mouth daily RED YEAST RICE EXTRACT 58055260036 Active Rosa Jaffe LPN Activ e DIFLUCAN 100 MG ORAL TABLET 1 tablet by mouth daily 20 19/03/05 FLUCONAZOLE 42635254255 No Longer Active Tesfaye Sherman MD Acti ve BACTRIM DS 800-160 MG ORAL TABLET 1 tab by mouth twice daily 201 05/06/28 TRIMETHOPRIM-SULFAMETHOXAZOLE 91143999480 No Longer Active Umer Sherman MD Active BACTRIM DS 800-160 MG ORAL TABLET 1 tab by mouth twice daily 201 05/04/15 TRIMETHOPRIM-SULFAMETHOXAZOLE 70549192501 No Longer Active Umer Sherman MD Active DIFLUCAN 150 MG ORAL TABLET 1 tablet by mouth daily 20 18/09/20 FLUCONAZOLE 50233254705 No Longer Active Tesfaye Sherman MD Acti ve BACTRIM DS 800-160 MG ORAL TABLET 1 tab by mouth twice daily 201 04/13/17 TRIMETHOPRIM-SULFAMETHOXAZOLE 40482096651 No Longer Active Umer Sherman MD Active ROPINIROLE HCL 0.25 MG ORAL TABLET 1 TAB PO Q HS ROPINIROLE HCL 80157690938 Active Tesfaye Sherman MD Active CEFTIN 250 MG ORAL TABLET 1 tablet twice daily x 7 days CEFUROXIME AXETIL 95275161971 No Longer Active Tesfaye Sherman MD Active DIFLUCAN 100 MG ORAL TABLET 1 tablet by mouth every other da y for 2 doses FLUCONAZOLE 18345479537 No Longer Active Tesfaye barron MD Active DIFLUCAN 100 MG ORAL TABLET 1 tablet by mouth daily X 3 DAYS 201 04/09/01 FLUCONAZOLE 52089784830 No Longer Active Rj Lyons tive MIRTAZAPINE 15 MG ORAL TABLET 1/2 tab by mouth at bedtime. 03/13 MIRTAZAPINE 04009103907 No Longer Active Tesfaye Sherman MD Active BACTRIM DS 800-160 MG ORAL TABLET 1 tab by mouth twice daily 201 04/09/01 TRIMETHOPRIM-SULFAMETHOXAZOLE 37874405135 No Longer Active Umer Sherman MD Active PRAMIPEXOLE DIHYDROCHLORIDE 0.125 MG ORAL TABLET take 1 tablet po qhs for restless leg syndrome. PRAMIPEXOLE DIHYDROCHLORI DE 50843108297 No Longer Active Tesfaye Sherman MD Active MAGNESIUM 400 MG ORAL TABLET 1 tab po daily MAGNE SIUM 17806984549 Active Chelsea Cardenas APRN Active SUDAFED 24 HOUR 240 MG ORAL TABLET EXTENDED RELEASE 24 HOUR 1 tab po daily PSEUDOEPHEDRINE HCL 79052032044 Active Chelsea Cardenas APRN Active CETIRIZINE HCL 5 MG ORAL TABLET Take 1 tablet by mouth daily CETIRIZINE HCL 84120434298 No Longer Active Chelsea Cardenas APRN Activ e TRIMETHOPRIM 100 MG ORAL TABLET 1/2 qd TRIM ETHOPRIM 28276646137 No Longer Active Chelsea Cardenas APRN Active BACTRIM DS 800-160 MG ORAL TABLET 1 tab by mouth twice daily 201 04/04/11 TRIMETHOPRIM-SULFAMETHOXAZOLE 71974109861 No Longer Active Umer Sherman MD Active BACTRIM DS 800-160 MG ORAL TABLET 1 tab by mouth twice daily X 10 DAYS TRIMETHOPRIM-SULFAMETHOXAZOLE 81077110128 No Longer Active Tesfaye Sherman MD Active AMOXICILLIN 500 MG ORAL CAPSULE 1 cap by mouth three times a day AMOXICILLIN 91750510530 No Longer Active Adriana Arredondo Active MECLIZINE HCL 25 MG ORAL TABLET one tab po qday prn dizziness 09/08 MECLIZINE HCL 12044815367 Active Tesfaye Sherman MD Active B-12 1000 MCG ORAL LOZENGE 1 tab po daily CYANO COBALAMIN 59423185263 Active Tesfaye Sherman MD Active VITAMIN D3 2000 UNIT ORAL TABLET 1 daily, for vitamin D deficien cy CHOLECALCIFEROL 08851380023 No Longer Active Tesfaye Sherman MD Active TIZANIDINE HCL 2 MG ORAL TABLET take 1-2 tablet by mo ut every day at bedtime at 9pm PRN TIZANIDINE HCL 66797343801 Active Tesfaye hewitt MD Active ZITHROMAX 250 MG ORAL TABLET 2 po today, then 1 po q days 2-5 20 15/02/10 AZITHROMYCIN 71151171453 No Longer Active Tesfaye Sherman MD Active BACTRIM DS 800-160 MG ORAL TABLET 1 tab by mouth twice daily 201 03/03/23 TRIMETHOPRIM-SULFAMETHOXAZOLE 23268217251 No Longer Active Umer Sherman MD Active PRELIEF 340 (65-50) MG (CA-P) ORAL TABLET CALCIUM GLYCEROPHOSPHATE 27047801118 Active Tesfaye Sherman MD Acti ve [facility] NIACIN FLUSH FREE 400-100 MG ORAL CAPSULE 1 daily NIACIN-INOSITOL 91986964453 Active Kayla Cooper MD Activ e DIFLUCAN 150 MG ORAL TABLET 1 qd FLUCONAZOL E 02645794106 No Longer Active Kayla Cooper MD Active FLUTICASONE PROPIONATE 50 MCG/ACT NASAL SUSPENSION 1 spray each nostril twice daily FLUTICASONE PROPIONATE 40384378637 Active Umer Sherman MD Active LOVASTATIN 20 MG ORAL TABLET Take 1 tablet by mouth daily LOVASTATIN 59862195907 No Longer Active Tesfaye Sherman MD Acti ve MELOXICAM 7.5 MG ORAL TABLET 1 tablet by mouth daily 2 MELOXICAM 94012542234 No Longer Active Tesfaye Sherman MD Acti ve GABAPENTIN 300 MG ORAL CAPSULE Take two tablets by mouth every e vening GABAPENTIN 53091442408 No Longer Active Edith Burch MD A ctive CLONAZEPAM 0.5 MG ORAL TABLET Take one tablet in the m orning and 1.5 tablet at 7pm CLONAZEPAM 42383041935 Active Kayla Cooper MD Active BACLOFEN 10 MG ORAL TABLET Take one tablet by mouth three times a d ay BACLOFEN 42833243263 Active Kayla Cooper MD Active GABAPENTIN 300 MG ORAL CAPSULE Take two tablets by mouth every e vening GABAPENTIN 300 MG ORAL CAPSULE 888749 GABAPENTIN I nactive MELOXICAM 7.5 MG ORAL TABLET 1 tablet by mouth daily 2 MELOXICAM 7.5 MG ORAL TABLET 367671 MELOXICAM Inactive LOVASTATIN 20 MG ORAL TABLET Take 1 tablet by mouth daily LOVASTATIN 20 MG ORAL TABLET 836652 LOVASTATIN Inactive DIFLUCAN 150 MG ORAL TABLET 1 qd DIFLUCAN 150 MG ORAL TABLET 470225 FLUCONAZOLE Inactive VITAMIN D3 2000 UNIT ORAL TABLET 1 daily, for vitamin D deficien cy VITAMIN D3 2000 UNIT ORAL TABLET CHOLECALCIFEROL Inactive AMOXICILLIN 500 MG ORAL CAPSULE 1 cap by mouth three times a day AMOXICILLIN 500 MG ORAL CAPSULE 750471 AMOXICILLIN Inactive BACTRIM DS 800-160 MG ORAL TABLET 1 tab by mouth twice daily X 10 DAYS BACTRIM DS 800-160 MG ORAL TABLET 896680 TRIMETHOPRIM-SULFAMETHOXAZOLE Inactive TRIMETHOPRIM 100 MG ORAL TABLET 1/2 qd 7 TRIMETHOPRIM 100 MG ORAL TABLET 719294 TRIMETHOPRIM Inactive CETIRIZINE HCL 5 MG ORAL TABLET Take 1 tablet by mouth daily CETIRIZINE HCL 5 MG ORAL TABLET 6348702 CETIRIZINE HCL Inactive PRAMIPEXOLE DIHYDROCHLORIDE 0.125 MG ORAL TABLET take 1 tablet po qhs for restless leg syndrome. PRAMIPEXOLE DIHYD ROCHLORIDE 0.125 MG ORAL TABLET 506705 PRAMIPEXOLE DIHYDROCHLORIDE Inactive MIRTAZAPINE 15 MG ORAL TABLET 1/2 tab by mouth at bedtime. 03/13 MIRTAZAPINE 15 MG ORAL TABLET 399655 MIRTAZAPINE In active DIFLUCAN 100 MG ORAL TABLET 1 tablet by mouth daily X 3 DAYS 201 04/09/01 DIFLUCAN 100 MG ORAL TABLET 109188 FLUCONAZOLE Inac tive DIFLUCAN 100 MG ORAL TABLET 1 tablet by mouth every other da y for 2 doses DIFLUCAN 100 MG ORAL TABLET 792860 FLUCONAZOLE Inactive CEFTIN 250 MG ORAL TABLET 1 tablet twice daily x 7 days CEFTIN 250 MG ORAL TABLET 303957 CEFUROXIME AXETIL Inactive CYMBALTA 30 MG ORAL CAPSULE DELAYED RELEASE PARTICLES 1 cap by mouth daily with 60mg CYMBALTA 30 MG ORAL CAPSULE DELAYED RELEASE PARTICLES 495283 DULOXETINE HCL Inactive CYMBALTA 60 MG ORAL CAPSULE DELAYED RELEASE PARTICLES Take 1 tablet by mouth daily CYMBALTA 60 MG ORAL CAPSULE DELAYED RELEA SE PARTICLES 016378 DULOXETINE HCL Inactive FOSAMAX 70 MG ORAL TABLET 1 po qweek. Take 30min prio r to first food/drink. Avoid lying down x 1 hour. FOSAMAX 70 MG ORAL TA BLET 208661 ALENDRONATE SODIUM Inactive DIFLUCAN 100 MG ORAL TABLET 1 tablet by mouth daily 20 19/08/26 DIFLUCAN 100 MG ORAL TABLET 396827 FLUCONAZOLE Inactive PREDNISONE 20 MG ORAL TABLET 1 tab twice daily for 3 d ay, then one daily for three days PREDNISONE 20 MG ORAL TABLET 982185 PREDNIS ONE Inactive BACTRIM DS 800-160 MG ORAL TABLET 1 tab by mouth twice daily 201 03/03/23 BACTRIM DS 800-160 MG ORAL TABLET 966841 TRIMETHOPRIM-SULFAMETHOXAZOLE Inactive ZITHROMAX 250 MG ORAL TABLET 2 po today, then 1 po q days 2-5 20 15/02/10 ZITHROMAX 250 MG ORAL TABLET 479550 AZITHROMYCIN Mayela ctive BACTRIM DS 800-160 MG [...] daily 19/03/05 DIFLUCAN 100 MG ORAL TABLET 635560 FLUCONAZOLE Inactive BACTRIM DS 800-160 MG ORAL TABLET 1 tab by mouth twice daily 201 05/10/28 BACTRIM DS 800-160 MG ORAL TABLET 753944 TRIMETHOPRIM-SULFAMETHOXAZOLE Inactive AMOXICILLIN 500 MG ORAL CAPSULE 1 cap by mouth three times a day AMOXICILLIN 500 MG ORAL CAPSULE 440573 AMOXICILLIN Inactive Advance Directives Directive Description Start Date PERMISSION TO SHARE DISCUSSED WITH PATIENT -- NO DECISION MADE DURABLE POWER OF ENVIRONMENTAL PROTECTION FORESTER FOR HEALTHCARE DISCUSED WITH PATIENT -- FULL [...] 11 .6-14.8 platelet count 349 10^3/MM^3 10*3/mm3 866-087 2945/06/14 erythrocyte (RBC) count 4.91 10^6/MM^3 10*6/mm3 3.80-5.8 0 lymphocytes as percent of blood leukocytes 28.7 % 20.5-51.1 monocytes as percent of blood leukocytes 8.7 % 1.7-9.3 neutrophils as percent of blood leukocytes 56.3 % 42.2-75.2 leukocyte count, blood 8.8 10^3/MM^3 10*3/mm3 4.6-10.2 Lab Report: Comp. Metabolic Panel, Lipid Panel, Thyroid Stimulating Horm ... - Chemistry sodium, serum 144 mmol/L 307-753 9191/06/14 carbon dioxide, venous blood 29.4 mmol/L 21.0-32 .0 potassium, serum 4.4 mmol/L 3.5-5.2 chloride, serum 108 mmol/L 98-107 blood glucose 100 mg/dL 65-110 urea nitrogen, blood 9 mg/dL 7-18 creatinine, serum 0.67 mg/dL 0.55-1.30 alanine aminotransferase (SGPT), serum 24 U/L 12-78 aspartate aminotransferase (SGOT), serum 15 U/L 15-37 calcium, serum 9.3 mg/dL 8.5-10.1 bilirubin, serum, total 0.50 mg/dL 0.00-1.00 cholesterol, serum 268 mg/dL 026-379 0624/06/14 triglyceride, serum, fasting 126 mg/dL 30-200 HDL cholesterol, serum 51 mg/dL 32-96 LDL cholesterol, serum 192 mg/dL 0-130 TSH 0.83 m[iU]/mL 0.36-3.74 thyroxine, serum, free 1.03 ng/dL 0.76-1.46 uric acid, serum 3.2 mg/dL 2.6-7.2 Lab Report: Comp. Metabolic Panel, [facility] - Chemistry sodium, serum 141 mmol/L 492-728 2464/01/26 carbon dioxide, venous blood 29.5 mmol/L 21.0-32 [...] mg/dL Encounters Code Encounter Date Provider Facility CPT-05568 Level 4 Est. Patient 22:18:12 CDT Tesfaye pearson MD [facility] CPT-57195 Level 4 Est. Patient 14:44:33 [employer] Tesfaye pearson MD [facility] CPT-50607 Level 4 Est. Patient 13:55:29 [employer] Tesfaye pearson MD [facility] CPT-96806 Level 4 Est. Patient 17:07:34 [employer] Tesfaye pearson MD [facility]-83982 Level 4 Est. Patient 13:56:54 CDT Tesfaye pearson MD [facility]-42983 Level 4 Est. Patient 13:24:25 CDT Chelsea sanz APRN [facility] CPT-19814 Level 4 Est. Patient 09:14:56 CDT Tesfaye pearson MD [facility]-59508 Level 4 Est. Patient 18:40:25 [employer] Tesfaye pearson MD [facility] CPT-85389 Level 4 Est. Patient 18:13:07 [employer] Tesfaye pearson MD [facility]-82758 Level 3 Est. Patient 10:46:32 CDT Rj cotto DO [facility] CPT-01898 Level 4 Est. Patient 20:19:25 CDT Tesfaye pearson MD [facility] CPT-48682 Level 3 Est. Patient 09:07:31 CDT Tesfaye pearson MD [facility]-74905 Level 4 Est. Patient 13:12:56 CDT Tesfaye pearson MD [facility]-12222 Level 4 Est. Patient 21:24:55 [employer] Tesfaye pearson MD [facility]-03109 Level 3 Est. Patient 13:45:04 [employer] Tesfaye pearson MD [facility] CPT-21727 Level 4 Est. Patient 13:50:45 CDT Tesfaye pearson MD [facility] CPT-23319 Level 3 Est. Patient 10:16:10 CDT Tesfaye pearson MD [facility] CPT-51774 Level 3 Est. Patient 16:36:07 [employer] Kayla jameson MD [facility] CPT-38967 Level 4 Est. Patient 16:00:14 [employer] Tesfaye pearson MD [facility] CPT-04864 Level 4 Est. Patient 11:02:24 [employer] Tesfaye pearson MD [facility] CPT-94891 Level 3 Est. Patient 20:21:43 [employer] Kayla jameson MD [facility] CPT-10954 Level 3 Est. Patient 13:27:28 [employer] Kayla jameson MD [facility] CPT-94925 Level 4 Est. Patient 15:57:17 [employer] Tesfaye pearson MD [facility] CPT-25559 Level 3 New Patient 13:25:47 CDT Tesfaye kidd MD [facility] CPT-33842 Level 3 New Patient 17:22:21 CDT Kayla angel MD [facility] Procedures Code Procedure Name Date Entry Date Standard Desc ription CPT-G0439 Subsequent Annual Wellness Exam 22:18:11 CDT CPT-75012 Bone Density - XRAY USE ONLY 11:43:58 CDT 2 CPT-02659 Bone Density - XRAY USE ONLY 10:05:16 CDT 2 CPT-81757 Prv Med New Pt 40-64 yrs 18:19:25 CDT 2016 CPT-86467 Foot, right, comp min 3V - XRAY USE ONLY 10:38:34 CDT CPT-G0439 Subsequent Annual Wellness Exam 13:55:04 CDT CPT-G0438 Initial Annual Wellness Exam 11:23:17 CD T CPT-J2930 Solu Medrol 125 mg (Methyl Prednisolone Sodium Succinate) 17:29:12 [employer] CPT-51701 Abx/Therapy Injection 17:29:11 [employer] CPT-J2930 Solu Medrol 125 mg (Methyl Prednisolone Sodium Succinate) 12:34:38 [employer] CPT-J3420 Vitamin B12 1000mcg (Cyanocobalamin) 09:12:55 CDT CPT-J3420 Vitamin B12 1000mcg (Cyanocobalamin) 16:28:06 [employer] CPT-52281 Venipuncture Draw Fee 08:39:53 CDT CPT-J3420 Vitamin B12 1000mcg (Cyanocobalamin) 08:46:22 CDT CPT-10015 Abx/Therapy Injection 08:46:22 CDT CPT-J3420 Vitamin B12 1000mcg (Cyanocobalamin) 08:41:26 CDT CPT-38059 Abx/Therapy Injection 08:41:26 CDT CPT-J3420 Vitamin B12 1000mcg (Cyanocobalamin) 08:57:15 CDT CPT-12899 Abx/Therapy Injection 08:57:15 CDT CPT-J3420 Vitamin B12 1000mcg (Cyanocobalamin) 10:59:03 CDT CPT-21062 Abx/Therapy Injection 10:59:03 CDT CPT-J3420 Vitamin B12 1000mcg (Cyanocobalamin) 15:05:39 CDT CPT-95233 Abx/Therapy Injection 15:05:39 CDT CPT-J3420 Vitamin B12 1000mcg (Cyanocobalamin) 13:50:45 CDT CPT-J3420 Vitamin B12 1000mcg (Cyanocobalamin) 08:48:55 CDT CPT-02712 Abx/Therapy Injection 08:48:55 CDT CPT-J3420 Vitamin B12 1000mcg (Cyanocobalamin) 09:14:54 CDT CPT-28357 Abx/Therapy Injection 09:14:54 CDT CPT-J3420 Vitamin B12 1000mcg (Cyanocobalamin) 09:06:06 CDT CPT-29639 Abx/Therapy Injection 09:06:06 CDT CPT-J3420 Vitamin B12 1000mcg (Cyanocobalamin) 09:49:14 CDT CPT-47362 Abx/Therapy Injection 09:49:14 CDT CPT-J3420 Vitamin B12 1000mcg (Cyanocobalamin) 09:10:30 [employer] CPT-92313 Abx/Therapy Injection 09:10:30 [employer] CPT-J3420 Vitamin B12 1000mcg (Cyanocobalamin) 09:11:07 [employer] CPT-08296 Abx/Therapy Injection 09:11:07 [employer] CPT-J3420 Vitamin B12 1000mcg (Cyanocobalamin) 09:57:03 [employer] CPT-13533 Abx/Therapy Injection 09:57:03 [employer] CPT-J3420 Vitamin B12 1000mcg (Cyanocobalamin) 09:23:21 [employer] CPT-88311 Abx/Therapy Injection 09:23:21 [employer] CPT-50268 Urine Dip (Floor Use Only) 20:21:44 [employer] 201 02/12/11 CPT-55124 UA Dip Auto (Floor Use Only) 10:04:39 [employer] 2 CPT-91283 Urine Dip (Floor Use Only) 13:27:28 [employer] 201 02/12/01 CPT-41348 Bladder Scan 13:27:28 [employer] CPT-49699 Abd single AP View 14:30:51 [employer] CPT-OV Office Visit 10:15:43 CDT CPT-06518 Urine Dip (Floor Use Only) 17:22:21 CDT 201 02/09/02 CPT-75452 Bladder Scan 17:22:21 CDT
--- OUTSIDE RECORDS SUMMARY | 2020-05-05 12:28 | XMS REPORT | Clinical Summary ---
Author Author Talon, Jeri Wood Organization [employer] Address Unknown Phone Unavailable Allergies, Adverse [...] day as needed for dizziness MECLIZINE HCL [id number] Active Laurence Raida Active DIFLUCAN 100 MG ORAL TABLET 1 tablet by mouth daily FLUCONAZOLE 73621383844 Active Laurence Raida Active AMOXICILLIN 500 MG ORAL CAPSULE 1 cap by mouth three times a day AMOXICILLIN 97095040294 No Longer Active Laurence Raida Acti ve VENLAFAXINE HCL 75 MG ORAL TABLET 1 am 1/2 at noon VENLAFAXINE HCL 10722782687 Active Tesfaye Sherman MD Active DIFLUCAN 100 MG ORAL TABLET 1 tablet by mouth daily 20 19/08/26 FLUCONAZOLE 90114242830 No Longer Active Tesfaye Sherman MD Acti ve BACTRIM DS 800-160 MG ORAL TABLET 1 tab by mouth twice daily 201 05/10/28 TRIMETHOPRIM-SULFAMETHOXAZOLE 36791514395 No Longer Active Fer Dominguez Active FOSAMAX 70 MG ORAL TABLET 1 po qweek. Take 30min prio r to first food/drink. Avoid lying down x 1 hour. ALENDRONATE SODIUM 93508011 144 No Longer Active Laurence Dominguez Active REPHRESH PRO-B ORAL CAPSULE 1 tablet daily LACT OBACILLUS 63180279521 Active Edith Burch MD Active CYMBALTA 60 MG ORAL CAPSULE DELAYED RELEASE PARTICLES Take 1 tablet by mouth daily DULOXETINE HCL 14890939562 No Longer Active Edith Burch MD Active CYMBALTA 30 MG ORAL CAPSULE DELAYED RELEASE PARTICLES 1 cap by mouth daily with 60mg DULOXETINE HCL 62502093845 No Longer Active Jordan Burch MD Active FISH OIL 1000 MG ORAL CAPSULE DELAYED RELEASE 1 pill b y mouth daily for cholesterol OMEGA-3 FATTY ACIDS 14720074427 Active Cee Jaffe LPN Active RED YEAST RICE 600 MG ORAL CAPSULE 1 pill by mouth daily RED YEAST RICE EXTRACT 29353444396 Active Rosa Jaffe LPN Activ e DIFLUCAN 100 MG ORAL TABLET 1 tablet by mouth daily 19/03/05 FLUCONAZOLE 94531562906 No Longer Active Tesfaye Sherman MD Acti ve BACTRIM DS 800-160 MG ORAL TABLET 1 tab by mouth twice daily 201 05/06/28 TRIMETHOPRIM-SULFAMETHOXAZOLE 51112359220 No Longer Active Umer Sherman MD Active BACTRIM DS 800-160 MG ORAL TABLET 1 tab by mouth twice daily 201 05/04/15 TRIMETHOPRIM-SULFAMETHOXAZOLE 75073882450 No Longer Active Umer Sherman MD Active DIFLUCAN 150 MG ORAL TABLET 1 tablet by mouth daily 20 18/09/20 FLUCONAZOLE 96453796720 No Longer Active Tesfaye Sherman MD Acti ve BACTRIM DS 800-160 MG ORAL TABLET 1 tab by mouth twice daily 201 04/13/17 TRIMETHOPRIM-SULFAMETHOXAZOLE 36691408244 No Longer Active Umer Sherman MD Active ROPINIROLE HCL 0.25 MG ORAL TABLET 1 TAB PO Q HS ROPINIROLE HCL 62041932402 Active Tesfaye Sherman MD Active CEFTIN 250 MG ORAL TABLET 1 tablet twice daily x 7 days CEFUROXIME AXETIL 26678814603 No Longer Active Tesfaye Sherman MD Active DIFLUCAN 100 MG ORAL TABLET 1 tablet by mouth every other da y for 2 doses FLUCONAZOLE 07816990196 No Longer Active Tesfaye barron MD Active DIFLUCAN 100 MG ORAL TABLET 1 tablet by mouth daily X 3 DAYS 201 04/09/01 FLUCONAZOLE 60384534242 No Longer Active Rj Moss DO Ac tive MIRTAZAPINE 15 MG ORAL TABLET 1/2 tab by mouth at bedtime. 03/13 MIRTAZAPINE 58206348868 No Longer Active Tesfaye Sherman MD Active BACTRIM DS 800-160 MG ORAL TABLET 1 tab by mouth twice daily 201 04/09/01 TRIMETHOPRIM-SULFAMETHOXAZOLE 64654322580 No Longer Active Umer Sherman MD Active PRAMIPEXOLE DIHYDROCHLORIDE 0.125 MG ORAL TABLET take 1 tablet po qhs for restless leg syndrome. PRAMIPEXOLE DIHYDROCHLORI DE 42109864393 No Longer Active Tesfaye Sherman MD Active MAGNESIUM 400 MG ORAL TABLET 1 tab po daily MAGNE SIUM 39968580790 Active Chelsea Barba APRN Active SUDAFED 24 HOUR 240 MG ORAL TABLET EXTENDED RELEASE 24 HOUR 1 tab po daily PSEUDOEPHEDRINE HCL 22067029450 Active Chelsea NAPOLES RN Active CETIRIZINE HCL 5 MG ORAL TABLET Take 1 tablet by mouth daily CETIRIZINE HCL 35870641267 No Longer Active Chelsea Barba APRN Ac tive TRIMETHOPRIM 100 MG ORAL TABLET 1/2 qd TRIM ETHOPRIM 06697323468 No Longer Active Chelsea Barba APRN Active BACTRIM DS 800-160 MG ORAL TABLET 1 tab by mouth twice daily 201 04/04/11 TRIMETHOPRIM-SULFAMETHOXAZOLE 15348227103 No Longer Active Umer Sherman MD Active BACTRIM DS 800-160 MG ORAL TABLET 1 tab by mouth twice daily X 10 DAYS TRIMETHOPRIM-SULFAMETHOXAZOLE 37316295699 No Longer Active Tesfaye Sherman MD Active AMOXICILLIN 500 MG ORAL CAPSULE 1 cap by mouth three times a day AMOXICILLIN 75591035517 No Longer Active Adriana Arnulfo Active MECLIZINE HCL 25 MG ORAL TABLET one tab po qday prn dizziness 09/08 MECLIZINE HCL 17765805309 Active Tesfaye Sherman MD Active B-12 1000 MCG ORAL LOZENGE 1 tab po daily CYANO COBALAMIN 78296331859 Active Tesfaye Sherman MD Active VITAMIN D3 2000 UNIT ORAL TABLET 1 daily, for vitamin D deficien cy CHOLECALCIFEROL 84682994932 No Longer Active Tesfaye Sherman MD Active TIZANIDINE HCL 2 MG ORAL TABLET take 1-2 tablet by mo ut every day at bedtime at 9pm PRN TIZANIDINE HCL 60066155082 Active Tesfaye hewitt MD Active ZITHROMAX 250 MG ORAL TABLET 2 po today, then 1 po q days 2-5 20 15/02/10 AZITHROMYCIN 29542971706 No Longer Active Tesfaye Sherman MD Active BACTRIM DS 800-160 MG ORAL TABLET 1 tab by mouth twice daily 201 03/03/23 TRIMETHOPRIM-SULFAMETHOXAZOLE 89099654729 No Longer Active Umer Sherman MD Active PRELIEF 340 (65-50) MG (CA-P) ORAL TABLET CALCIUM GLYCEROPHOSPHATE 88955484170 Active Tesfaye Sherman MD Acti ve [facility] NIACIN FLUSH FREE 400-100 MG ORAL CAPSULE 1 daily NIACIN-INOSITOL 17213845951 Active Kayla Cooper MD Activ e DIFLUCAN 150 MG ORAL TABLET 1 qd FLUCONAZOL E 27633599175 No Longer Active Kayla Cooper MD Active FLUTICASONE PROPIONATE 50 MCG/ACT NASAL SUSPENSION 1 spray each nostril twice daily FLUTICASONE PROPIONATE 57103667453 Active Umer Sherman MD Active LOVASTATIN 20 MG ORAL TABLET Take 1 tablet by mouth daily LOVASTATIN 69232399090 No Longer Active Tesfaye Sherman MD Acti ve MELOXICAM 7.5 MG ORAL TABLET 1 tablet by mouth daily 2 MELOXICAM 13998600188 No Longer Active Tesfaye Sherman MD Acti ve GABAPENTIN 300 MG ORAL CAPSULE Take two tablets by mouth every e vening GABAPENTIN 40740168912 No Longer Active Edith Burch MD A ctive OXYCODONE-ACETAMINOPHEN 5-325 MG ORAL TABLET Take one tablet by mouth every 6 hours as needed. Max 12 tabs/day as needed OXYCO DONE-ACETAMINOPHEN 99852082842 Active Tesfaye Sherman MD Active CLONAZEPAM 0.5 MG ORAL TABLET Take one tablet in the m orning and 1.5 tablet at 7pm CLONAZEPAM 64970041907 Active Kayla Cooper MD Active BACLOFEN 10 MG ORAL TABLET Take one tablet by mouth three times a d ay BACLOFEN 76416943693 Active Kayla Cooper MD Active GABAPENTIN 300 MG ORAL CAPSULE Take two tablets by mouth every e vening GABAPENTIN 300 MG ORAL CAPSULE 566091 GABAPENTIN I nactive MELOXICAM 7.5 MG ORAL TABLET 1 tablet by mouth daily 2 MELOXICAM 7.5 MG ORAL TABLET 327812 MELOXICAM Inactive LOVASTATIN 20 MG ORAL TABLET Take 1 tablet by mouth daily LOVASTATIN 20 MG ORAL TABLET 356215 LOVASTATIN Inactive DIFLUCAN 150 MG ORAL TABLET 1 qd DIFLUCAN 150 MG ORAL TABLET 031530 FLUCONAZOLE Inactive VITAMIN D3 2000 UNIT ORAL TABLET 1 daily, for vitamin D deficien cy VITAMIN D3 2000 UNIT ORAL TABLET CHOLECALCIFEROL Inactive AMOXICILLIN 500 MG ORAL CAPSULE 1 cap by mouth three times a day AMOXICILLIN 500 MG ORAL CAPSULE 535281 AMOXICILLIN Inactive BACTRIM DS 800-160 MG ORAL TABLET 1 tab by mouth twice daily X 10 DAYS BACTRIM DS 800-160 MG ORAL TABLET 19830105 TRIMETHOPRIM-SULFAMETHOXAZOLE Inactive TRIMETHOPRIM 100 MG ORAL TABLET 1/2 qd 7 TRIMETHOPRIM 100 MG ORAL TABLET 19830102 TRIMETHOPRIM Inactive CETIRIZINE HCL 5 MG ORAL TABLET Take 1 tablet by mouth daily CETIRIZINE HCL 5 MG ORAL TABLET 4341617 CETIRIZINE HCL Inactive PRAMIPEXOLE DIHYDROCHLORIDE 0.125 MG ORAL TABLET take 1 tablet po qhs for restless leg syndrome. PRAMIPEXOLE DIHYD ROCHLORIDE 0.125 MG ORAL TABLET 471865 PRAMIPEXOLE DIHYDROCHLORIDE Inactive MIRTAZAPINE 15 MG ORAL TABLET 1/2 tab by mouth at bedtime. 03/13 MIRTAZAPINE 15 MG ORAL TABLET 886734 MIRTAZAPINE In active DIFLUCAN 100 MG ORAL TABLET 1 tablet by mouth daily X 3 DAYS 201 04/09/01 DIFLUCAN 100 MG ORAL TABLET 948809 FLUCONAZOLE Inac tive DIFLUCAN 100 MG ORAL TABLET 1 tablet by mouth every other da y for 2 doses DIFLUCAN 100 MG ORAL TABLET 203553 FLUCONAZOLE Inactive CEFTIN 250 MG ORAL TABLET 1 tablet twice daily x 7 days CEFTIN 250 MG ORAL TABLET 604767 CEFUROXIME AXETIL Inactive CYMBALTA 30 MG ORAL CAPSULE DELAYED RELEASE PARTICLES 1 cap by mouth daily with 60mg CYMBALTA 30 MG ORAL CAPSULE DELAYED RELEASE PARTICLES 663144 DULOXETINE HCL Inactive CYMBALTA 60 MG ORAL CAPSULE DELAYED RELEASE PARTICLES Take 1 tablet by mouth daily CYMBALTA 60 MG ORAL CAPSULE DELAYED RELEA SE PARTICLES 960037 DULOXETINE HCL Inactive FOSAMAX 70 MG ORAL TABLET 1 po qweek. Take 30min prio r to first food/drink. Avoid lying down x 1 hour. FOSAMAX 70 MG ORAL TA BLET 048111 ALENDRONATE SODIUM Inactive DIFLUCAN 100 MG ORAL TABLET 1 tablet by mouth daily 19/08/26 DIFLUCAN 100 MG ORAL TABLET 680413 FLUCONAZOLE Inactive BACTRIM DS 800-160 MG ORAL TABLET 1 tab by mouth twice daily 201 03/03/23 BACTRIM DS 800-160 MG ORAL TABLET 121728 TRIMETHOPRIM-SULFAMETHOXAZOLE Inactive ZITHROMAX 250 MG ORAL TABLET 2 po today, then 1 po q days 2-5 20 15/02/10 ZITHROMAX 250 MG ORAL TABLET 486588 AZITHROMYCIN Mayela ctive BACTRIM DS 800-160 MG [...] 20 19/03/05 DIFLUCAN 100 MG ORAL TABLET 887935 FLUCONAZOLE Inactive BACTRIM DS 800-160 MG ORAL TABLET 1 tab by mouth twice daily 201 05/10/28 BACTRIM DS 800-160 MG ORAL TABLET 19830105 TRIMETHOPRIM-SULFAMETHOXAZOLE Inactive AMOXICILLIN 500 MG ORAL CAPSULE 1 cap by mouth three times a day AMOXICILLIN 500 MG ORAL CAPSULE 029426 AMOXICILLIN Inactive Advance Directives Directive Description Start Date PERMISSION TO SHARE DISCUSSED WITH PATIENT -- NO DECISION MADE DURABLE POWER OF INFORMATION SYSTEMS PROJECT MANAGER FOR HEALTHCARE Vital Signs Date Name [...] ... - Chemistry sodium, serum 144 mmol/L 412-758 0672/06/14 carbon dioxide, venous blood 29.4 mmol/L 21.0-32 .0 potassium, serum 4.4 mmol/L 3.5-5.2 chloride, serum 108 mmol/L 98-107 blood glucose 100 mg/dL 65-110 urea nitrogen, blood 9 mg/dL 7-18 creatinine, serum 0.67 mg/dL 0.55-1.30 alanine aminotransferase (SGPT), serum 24 U/L 12-78 aspartate aminotransferase (SGOT), serum 15 U/L 15-37 calcium, serum 9.3 mg/dL 8.5-10.1 bilirubin, serum, total 0.50 mg/dL 0.00-1.00 cholesterol, serum 268 mg/dL 191-250 8003/06/14 triglyceride, serum, fasting 126 mg/dL 30-200 HDL [...] mg/dL Encounters Code Encounter Date Provider Facility CPT-97183 Level 4 Est. Patient 17:07:34 FL[employer] SECURITY SPECIALIST Tesfaye pearson MD [facility] CPT-73817 Level 4 Est. Patient 13:56:54 CDT Tesfaye pearson MD [facility] CPT-81400 Level 4 Est. Patient 13:24:25 CDT Stephanie MERCADO [facility] CPT-61132 Level 4 Est. Patient 09:14:56 CDT Tesfaye pearson MD [facility] CPT-01215 Level 4 Est. Patient 18:40:25 FLIGHT SECURITY SPECIALIST Tesfaye pearson MD [facility] CPT-71194 Level 4 Est. Patient 18:13:07 FLIGHT SECURITY SPECIALIST Tesfaye pearson MD [facility] CPT-91391 Level 3 Est. Patient 10:46:32 CDT Rj cotto DO [facility] CPT-49458 Level 4 Est. Patient 20:19:25 CDT Tesfaye pearson MD [facility] CPT-28099 Level 3 Est. Patient 09:07:31 CDT Tesfaye pearson MD [facility]-15831 Level 4 Est. Patient 13:12:56 CDT Tesfaye pearson MD [facility]-83216 Level 4 Est. Patient 21:24:55 FLIGHT SECURITY SPECIALIST Tesfaye pearson MD [facility]-71918 Level 3 Est. Patient 13:45:04 FLIGHT SECURITY SPECIALIST Tesfaye pearson MD [facility] CPT-28479 Level 4 Est. Patient 13:50:45 CDT Tesfaye pearson MD [facility]-31018 Level 3 Est. Patient 10:16:10 CDT Tesfaye pearson MD [facility]-05841 Level 3 Est. Patient 16:36:07 FLIGHT SECURITY SPECIALIST Kayla jameson MD [facility]-47223 Level 4 Est. Patient 16:00:14 FLIGHT SECURITY SPECIALIST Tesfaye pearson MD [facility]-46096 Level 4 Est. Patient 11:02:24 FLIGHT SECURITY SPECIALIST Tesfaye pearson MD [facility]-38398 Level 3 Est. Patient 20:21:43 FLIGHT SECURITY SPECIALIST Kayla jameson MD [facility]-25389 Level 3 Est. Patient 13:27:28 FLIGHT SECURITY SPECIALIST Kayla jameson MD [facility]-34142 Level 4 Est. Patient 15:57:17 FLIGHT SECURITY SPECIALIST Tesfaye pearson MD [facility] CPT-80180 Level 3 New Patient 13:25:47 CDT Tesfaye kidd MD [facility] CPT-76086 Level 3 New Patient 17:22:21 CDT Kayla angel MD [facility] Procedures Code Procedure Name Date Entry Date Standard Desc ription CPT-05360 Bone Density - XRAY USE ONLY 11:43:58 CDT 2 CPT-36887 Bone Density - XRAY USE ONLY 10:05:16 CDT 2 CPT-15865 Prv Med New Pt 40-64 yrs 18:19:25 CDT 2016 CPT-16417 Foot, right, comp min 3V - XRAY USE ONLY 10:38:34 CDT CPT-G0439 Subsequent Annual Wellness Exam 13:55:04 CDT CPT-G0438 Initial Annual Wellness Exam 11:23:17 CD T CPT-J2930 Solu Medrol 125 mg (Methyl Prednisolone Sodium Succinate) 17:29:12 FLIGHT SECURITY SPECIALIST CPT-82475 Abx/Therapy Injection 17:29:11 FLIGHT SECURITY SPECIALIST CPT-J2930 Solu Medrol 125 mg (Methyl Prednisolone Sodium Succinate) 12:34:38 FLIGHT SECURITY SPECIALIST CPT-J3420 Vitamin B12 1000mcg (Cyanocobalamin) 09:12:55 CDT CPT-J3420 Vitamin B12 1000mcg (Cyanocobalamin) 16:28:06 FLIGHT SECURITY SPECIALIST CPT-65401 Venipuncture Draw Fee 08:39:53 CDT CPT-J3420 Vitamin B12 1000mcg (Cyanocobalamin) 08:46:22 CDT CPT-69879 Abx/Therapy Injection 08:46:22 CDT CPT-J3420 Vitamin B12 1000mcg (Cyanocobalamin) 08:41:26 CDT CPT-62408 Abx/Therapy Injection 08:41:26 CDT CPT-J3420 Vitamin B12 1000mcg (Cyanocobalamin) 08:57:15 CDT CPT-87989 Abx/Therapy Injection 08:57:15 CDT CPT-J3420 Vitamin B12 1000mcg (Cyanocobalamin) 10:59:03 CDT CPT-94591 Abx/Therapy Injection 10:59:03 CDT CPT-J3420 Vitamin B12 1000mcg (Cyanocobalamin) 15:05:39 CDT CPT-28402 Abx/Therapy Injection 15:05:39 CDT CPT-J3420 Vitamin B12 1000mcg (Cyanocobalamin) 13:50:45 CDT CPT-J3420 Vitamin B12 1000mcg (Cyanocobalamin) 08:48:55 CDT CPT-39070 Abx/Therapy Injection 08:48:55 CDT CPT-J3420 Vitamin B12 1000mcg (Cyanocobalamin) 09:14:54 CDT CPT-12096 Abx/Therapy Injection 09:14:54 CDT CPT-J3420 Vitamin B12 1000mcg (Cyanocobalamin) 09:06:06 CDT CPT-14580 Abx/Therapy Injection 09:06:06 CDT CPT-J3420 Vitamin B12 1000mcg (Cyanocobalamin) 09:49:14 CDT CPT-05335 Abx/Therapy Injection 09:49:14 CDT CPT-J3420 Vitamin B12 1000mcg (Cyanocobalamin) 09:10:30 FLIGHT SECURITY SPECIALIST CPT-63495 Abx/Therapy Injection 09:10:30 FLIGHT SECURITY SPECIALIST CPT-J3420 Vitamin B12 1000mcg (Cyanocobalamin) 09:11:07 FLIGHT SECURITY SPECIALIST CPT-09954 Abx/Therapy Injection 09:11:07 FLIGHT SECURITY SPECIALIST CPT-J3420 Vitamin B12 1000mcg (Cyanocobalamin) 09:57:03 FLIGHT SECURITY SPECIALIST CPT-42948 Abx/Therapy Injection 09:57:03 FLIGHT SECURITY SPECIALIST CPT-J3420 Vitamin B12 1000mcg (Cyanocobalamin) 09:23:21 FLIGHT SECURITY SPECIALIST CPT-61529 Abx/Therapy Injection 09:23:21 FLIGHT SECURITY SPECIALIST CPT-03985 Urine Dip (Floor Use Only) 20:21:44 FLIGHT SECURITY SPECIALIST 201 02/12/11 CPT-86155 UA Dip Auto (Floor Use Only) 10:04:39 FLIGHT SECURITY SPECIALIST 2 CPT-52348 Urine Dip (Floor Use Only) 13:27:28 FLIGHT SECURITY SPECIALIST 201 02/12/01 CPT-51045 Bladder Scan 13:27:28 FLIGHT SECURITY SPECIALIST CPT-43109 Abd single AP View 14:30:51 FLIGHT SECURITY SPECIALIST CPT-OV Office Visit 10:15:43 CDT CPT-28660 Urine Dip (Floor Use Only) 17:22:21 CDT 201 02/09/02 CPT-61126 Bladder Scan 17:22:21 CDT
--- OUTSIDE RECORDS SUMMARY | 2020-05-05 12:28 | XMS REPORT | Clinical Summary ---
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 Pain in limb Foot pain, right 729.5 Active Chelsea Cardenas [employer] Pain in limb Joint pain 719.40 Active Chelsea Cardenas [employer] Pain in joint, site unspecified Tobacco abuse [...] infections of unspecified site Osteopenia 733.90 Active Tesafye Sherman MD Disorder of bone and cartilage, [...] Active Tesfaye Sherman MD Dizziness and giddiness Body Mass Index 20.0-20.9 Adult Active 2017 Tesfaye Sherman MD Body Mass Index between 19-24, adult Dysuria 788.1 Active Tesfaye Sherman MD Dysuria High risk meds prison use V58.6 Active Tesfaye Sherman MD Long-term (current) drug use Yeast infection 112.9 Active Tesfaye Owusu Candidiasis of unspecified site Upper respiratory infection 465.9 Active Tesfaye Sherman MD Acute upper respiratory infections of un specified site Medication List Medication Instructions Start Date Stop Date Generic Name NDC Status Provider Patient Instruction SUDAFED 12 HOUR 120 MG ORAL TABLET EXTENDED RELEASE 12 HOUR 1 pill twice daily if needed for congestion PSEUDOEPHEDRINE HCL [id number] A ctive Tesfaye Sherman MD Active ABILIFY 2 MG ORAL TABLET 1 by mouth daily. MARIA ELENA PIPRAZOLE [id number] Active Tesfaye Sherman MD Active CYMBALTA 60 MG ORAL CAPSULE DELAYED RELEASE PARTICLES 1 cap by mouth daily for pain DULOXETINE HCL 51342223911 Active Tesfaye Owusu Active DIFLUCAN 100 MG ORAL TABLET 1 tablet by mouth daily 20 20/06/06 FLUCONAZOLE 29681111114 No Longer Active Tesfaye Sherman MD Acti ve PREDNISONE 20 MG ORAL TABLET 1 tablet by mouth twice d aily for 3 days, then 1 tablet daily for 3 days PREDNISONE 49310496877 No L onger Active Tesfaye Sherman MD Active DIFLUCAN 100 MG ORAL TABLET 1 tablet by mouth daily FLUCONAZOLE 85404425563 Active Tesfaye Sherman MD Active BACTRIM DS 800-160 MG ORAL TABLET 1 tab by mouth twice daily 201 06/09/02 TRIMETHOPRIM-SULFAMETHOXAZOLE 54106173984 No Longer Active Fer Dominguez Active DIFLUCAN 100 MG ORAL TABLET 1 tablet by mouth daily 20 20/05/01 FLUCONAZOLE 60305619443 No Longer Active Tesfaye Sherman MD Acti ve ZITHROMAX 250 MG ORAL TABLET 2 po today, then 1 po q days 2-5 20 20/04/28 AZITHROMYCIN 43510249494 No Longer Active Tesfaye Sherman MD Active MECLIZINE HCL 25 MG ORAL TABLET one tab po qday prn dizziness 20 17/09/06 MECLIZINE HCL 38926970507 No Longer Active Tesfaye Sherman MD Active PROAIR HFA 108 (90 BASE) MCG/ACT INHALATION AEROSOL SO LUTION 1 puff every 6 hours as needed ALBUTEROL SULFATE 01678015571 No Long er Active Tesfaye Sherman MD Active OXYCODONE-ACETAMINOPHEN 5-325 MG ORAL TABLET Take one tablet by mouth every 6 hours as needed. Use sparingly OXYCODONE-ACETAMINOPHEN 35026798701 Active Tesfaye Sherman MD Active PREDNISONE 20 MG ORAL TABLET 1 tab twice daily for 3 d ay, then one daily for three days PREDNISONE 84745290053 No Longer Active Tesfaye Sherman MD Active MECLIZINE HCL 25 MG ORAL TABLET one 4 times a day as needed for dizziness MECLIZINE HCL 24616389987 Active Tesfaye Sherman MD Active AMOXICILLIN 500 MG ORAL CAPSULE 1 cap by mouth three times a day AMOXICILLIN 46039798288 No Longer Active Laurence Dominguez Acti ve VENLAFAXINE HCL 75 MG ORAL TABLET 1 am 1/2 at noon VENLAFAXINE HCL 79971735589 Active Tesfaye Sherman MD Active DIFLUCAN 100 MG ORAL TABLET 1 tablet by mouth daily 20 19/08/26 FLUCONAZOLE 52333523212 No Longer Active Tesfaye Sherman MD Acti ve BACTRIM DS 800-160 MG ORAL TABLET 1 tab by mouth twice daily 201 05/10/28 TRIMETHOPRIM-SULFAMETHOXAZOLE 84340597482 No Longer Active A mirna Angelica Active FOSAMAX 70 MG ORAL TABLET 1 po qweek. Take 30min prio r to first food/drink. Avoid lying down x 1 hour. ALENDRONATE SODIUM 35531416 144 No Longer Active Laurence Lopezduyen Active REPHRESH PRO-B ORAL CAPSULE 1 tablet daily LACT OBACILLUS 30482472108 Active Edith Burch MD Active CYMBALTA 60 MG ORAL CAPSULE DELAYED RELEASE PARTICLES Take 1 tablet by mouth daily DULOXETINE HCL 66088782609 No Longer Active Edith Burch MD Active CYMBALTA 30 MG ORAL CAPSULE DELAYED RELEASE PARTICLES 1 cap by mouth daily with 60mg DULOXETINE HCL 31892937160 No Longer Active Jordan Burch MD Active FISH OIL 1000 MG ORAL CAPSULE DELAYED RELEASE 1 pill b y mouth daily for cholesterol OMEGA-3 FATTY ACIDS 95387597705 Active Cee Jaffe LPN Active RED YEAST RICE 600 MG ORAL CAPSULE 1 pill by mouth daily RED YEAST RICE EXTRACT 38798548192 Active Rosa Jaffe LPN Activ e DIFLUCAN 100 MG ORAL TABLET 1 tablet by mouth daily 19/03/05 FLUCONAZOLE 65404900301 No Longer Active Tesfaye Mcdonaldi ve BACTRIM DS 800-160 MG ORAL TABLET 1 tab by mouth twice daily 201 05/06/28 TRIMETHOPRIM-SULFAMETHOXAZOLE 74981361311 No Longer Active Umer Sherman MD Active BACTRIM DS 800-160 MG ORAL TABLET 1 tab by mouth twice daily 201 05/04/15 TRIMETHOPRIM-SULFAMETHOXAZOLE 20677682056 No Longer Active Umer Sherman MD Active DIFLUCAN 150 MG ORAL TABLET 1 tablet by mouth daily 20 18/09/20 FLUCONAZOLE 28831288354 No Longer Active Tesfaye Sherman MD Acti ve BACTRIM DS 800-160 MG ORAL TABLET 1 tab by mouth twice daily 201 04/13/17 TRIMETHOPRIM-SULFAMETHOXAZOLE 65423586442 No Longer Active Umer Sherman MD Active ROPINIROLE HCL 0.25 MG ORAL TABLET 1 TAB PO Q HS ROPINIROLE HCL 74446153038 Active Tesfaye Sherman MD Active CEFTIN 250 MG ORAL TABLET 1 tablet twice daily x 7 days CEFUROXIME AXETIL 05906865244 No Longer Active Tesfaye Sherman MD Active DIFLUCAN 100 MG ORAL TABLET 1 tablet by mouth every other da y for 2 doses FLUCONAZOLE 21053837465 No Longer Active Tesfaye barron MD Active DIFLUCAN 100 MG ORAL TABLET 1 tablet by mouth daily X 3 DAYS 201 04/09/01 FLUCONAZOLE 56365709064 No Longer Active Rj Lyons tive MIRTAZAPINE 15 MG ORAL TABLET 1/2 tab by mouth at bedtime. 03/13 MIRTAZAPINE 18672507138 No Longer Active Tesfaye Sherman MD Active BACTRIM DS 800-160 MG ORAL TABLET 1 tab by mouth twice daily 201 04/09/01 TRIMETHOPRIM-SULFAMETHOXAZOLE 61094848488 No Longer Active Umer Sherman MD Active PRAMIPEXOLE DIHYDROCHLORIDE 0.125 MG ORAL TABLET take 1 tablet po qhs for restless leg syndrome. PRAMIPEXOLE DIHYDROCHLORI DE 03247701647 No Longer Active Tesfaye Sherman MD Active MAGNESIUM 400 MG ORAL TABLET 1 tab po daily MAGNE SIUM 13896995174 Active Chelsea Cardenas APRN Active SUDAFED 24 HOUR 240 MG ORAL TABLET EXTENDED RELEASE 24 HOUR 1 tab po daily PSEUDOEPHEDRINE HCL 79795618447 Active Chelsea Cardenas APRN Active CETIRIZINE HCL 5 MG ORAL TABLET Take 1 tablet by mouth daily CETIRIZINE HCL 48364099830 No Longer Active Chelsea Cardenas APRN Activ e TRIMETHOPRIM 100 MG ORAL TABLET 1/2 qd TRIM ETHOPRIM 56022527670 No Longer Active Chelsea Cardenas APRN Active BACTRIM DS 800-160 MG ORAL TABLET 1 tab by mouth twice daily 201 04/04/11 TRIMETHOPRIM-SULFAMETHOXAZOLE 42874978948 No Longer Active Umer Sherman MD Active BACTRIM DS 800-160 MG ORAL TABLET 1 tab by mouth twice daily X 10 DAYS TRIMETHOPRIM-SULFAMETHOXAZOLE 01513138510 No Longer Active Tesfaye Sherman MD Active AMOXICILLIN 500 MG ORAL CAPSULE 1 cap by mouth three times a day AMOXICILLIN 38463612596 No Longer Active Adriana Arredondo Active B-12 1000 MCG ORAL LOZENGE 1 tab po daily CYANO COBALAMIN 11570165011 Active Tesfaye Sherman MD Active VITAMIN D3 2000 UNIT ORAL TABLET 1 daily, for vitamin D deficien cy CHOLECALCIFEROL 89751071038 No Longer Active Tesfaye Sherman MD Active TIZANIDINE HCL 2 MG ORAL TABLET take 1-2 [facility] day at bedtime at 9pm PRN TIZANIDINE HCL 75241908741 Active Tesfaye hewitt MD Active ZITHROMAX 250 MG ORAL TABLET 2 po today, then 1 po q days 2-5 20 15/02/10 AZITHROMYCIN 44608875794 No Longer Active Tesfaye Sherman MD Active BACTRIM DS 800-160 MG ORAL TABLET 1 tab by mouth twice daily 201 03/03/23 TRIMETHOPRIM-SULFAMETHOXAZOLE 66233556558 No Longer Active Umer Sherman MD Active PRELIEF 340 (65-50) MG (CA-P) ORAL TABLET CALCIUM GLYCEROPHOSPHATE 26339838185 Active Tesfaye Sherman MD Acti ve [facility] NIACIN FLUSH FREE 400-100 MG ORAL CAPSULE 1 daily NIACIN-INOSITOL 32022062425 Active Kayla Cooper MD Activ e DIFLUCAN 150 MG ORAL TABLET 1 qd FLUCONAZOL E 48085522274 No Longer Active Kayla Cooper MD Active FLUTICASONE PROPIONATE 50 MCG/ACT NASAL SUSPENSION 1 spray each nostril twice daily FLUTICASONE PROPIONATE 70675964434 Active D ptaricia Sherman MD Active LOVASTATIN 20 MG ORAL TABLET Take 1 tablet by mouth daily LOVASTATIN 65648492074 No Longer Active Tesfaye Sherman MD Acti ve MELOXICAM 7.5 MG ORAL TABLET 1 tablet by mouth daily 2 MELOXICAM 00168319085 No Longer Active Tesfaye Sherman MD Acti ve GABAPENTIN 300 MG ORAL CAPSULE Take two tablets by mouth every e vening GABAPENTIN 15945044599 No Longer Active Edith Burch MD A ctive CLONAZEPAM 0.5 MG ORAL TABLET Take one tablet in the m orning and 1.5 tablet at 7pm CLONAZEPAM 18579344597 Active Kayla Cooper MD Active BACLOFEN 10 MG ORAL TABLET Take one tablet by mouth three times a d ay BACLOFEN 48483008673 Active Kayla Cooper MD Active GABAPENTIN 300 MG ORAL CAPSULE Take two tablets by mouth every e vening GABAPENTIN 300 MG ORAL CAPSULE 909586 GABAPENTIN I nactive MELOXICAM 7.5 MG ORAL TABLET 1 tablet by mouth daily 2 MELOXICAM 7.5 MG ORAL TABLET 316098 MELOXICAM Inactive LOVASTATIN 20 MG ORAL TABLET Take 1 tablet by mouth daily LOVASTATIN 20 MG ORAL TABLET 836543 LOVASTATIN Inactive DIFLUCAN 150 MG ORAL TABLET 1 qd DIFLUCAN 150 MG ORAL TABLET 621092 FLUCONAZOLE Inactive VITAMIN D3 2000 UNIT ORAL TABLET 1 daily, for vitamin D deficien cy VITAMIN D3 2000 UNIT ORAL TABLET CHOLECALCIFEROL Inactive AMOXICILLIN 500 MG ORAL CAPSULE 1 cap by mouth three times a day AMOXICILLIN 500 MG ORAL CAPSULE 984987 AMOXICILLIN Inactive BACTRIM DS 800-160 MG ORAL TABLET 1 tab by mouth twice daily X 10 DAYS BACTRIM DS 800-160 MG ORAL TABLET 19830105 TRIMETHOPRIM-SULFAMETHOXAZOLE Inactive TRIMETHOPRIM 100 MG ORAL TABLET 1/2 qd 7 TRIMETHOPRIM 100 MG ORAL TABLET 19830102 TRIMETHOPRIM Inactive CETIRIZINE HCL 5 MG ORAL TABLET Take 1 tablet by mouth daily CETIRIZINE HCL 5 MG ORAL TABLET 6958715 CETIRIZINE HCL Inactive PRAMIPEXOLE DIHYDROCHLORIDE 0.125 MG ORAL TABLET take 1 tablet po qhs for restless leg syndrome. PRAMIPEXOLE DIHYD ROCHLORIDE 0.125 MG ORAL TABLET 389087 PRAMIPEXOLE DIHYDROCHLORIDE Inactive MIRTAZAPINE 15 MG ORAL TABLET 1/2 tab by mouth at bedtime. 03/13 MIRTAZAPINE 15 MG ORAL TABLET 918116 MIRTAZAPINE In active DIFLUCAN 100 MG ORAL TABLET 1 tablet by mouth daily X 3 DAYS 201 04/09/01 DIFLUCAN 100 MG ORAL TABLET 398408 FLUCONAZOLE Inac tive DIFLUCAN 100 MG ORAL TABLET 1 tablet by mouth every other da y for 2 doses DIFLUCAN 100 MG ORAL TABLET 652777 FLUCONAZOLE Inactive CEFTIN 250 MG ORAL TABLET 1 tablet twice daily x 7 days CEFTIN 250 MG ORAL TABLET CEFUROXIME AXETIL Inactive CYMBALTA 30 MG ORAL CAPSULE DELAYED RELEASE PARTICLES 1 cap by mouth daily with 60mg CYMBALTA 30 MG ORAL CAPSULE DELAYED RELEASE PARTICLES 629461 DULOXETINE HCL Inactive CYMBALTA 60 MG ORAL CAPSULE DELAYED RELEASE PARTICLES Take 1 tablet by mouth daily CYMBALTA 60 MG ORAL CAPSULE DELAYED RELEA SE PARTICLES 261253 DULOXETINE HCL Inactive FOSAMAX 70 MG ORAL TABLET 1 po qweek. Take 30min prio r to first food/drink. Avoid lying down x 1 hour. FOSAMAX 70 MG ORAL TA BLET 771934 ALENDRONATE SODIUM Inactive DIFLUCAN 100 MG ORAL TABLET 1 tablet by mouth daily 19/08/26 DIFLUCAN 100 MG ORAL TABLET 453989 FLUCONAZOLE Inactive PREDNISONE 20 MG ORAL TABLET 1 tab twice daily for 3 d ay, then one daily for three days PREDNISONE 20 MG ORAL TABLET 298717 PREDNIS ONE Inactive PROAIR HFA 108 (90 BASE) MCG/ACT INHALATION AEROSOL SO LUTION 1 puff every 6 hours as needed PROAIR HFA 108 (90 B ASE) MCG/ACT INHALATION AEROSOL SOLUTION ALBUTEROL SULFATE Inactive MECLIZINE HCL 25 MG ORAL TABLET one tab po qday prn dizziness 20 17/09/06 MECLIZINE HCL 25 MG ORAL TABLET 262066 MECLIZINE HCL Inactive PREDNISONE 20 MG ORAL TABLET 1 tablet by mouth twice d aily for 3 days, then 1 tablet daily for 3 days PREDNISONE 20 MG ORAL TA BLET 565586 PREDNISONE Inactive DIFLUCAN 100 MG ORAL TABLET 1 tablet by mouth daily 20 20/06/06 DIFLUCAN 100 MG ORAL TABLET 840164 FLUCONAZOLE Inactive BACTRIM DS 800-160 MG ORAL TABLET 1 tab by mouth twice daily 201 03/03/23 BACTRIM DS 800-160 MG ORAL TABLET 19830105 TRIMETHOPRIM-SULFAMETHOXAZOLE Inactive ZITHROMAX 250 MG ORAL TABLET 2 po today, then 1 po q days 2-5 20 15/02/10 ZITHROMAX 250 MG ORAL TABLET 765896 AZITHROMYCIN [place] ctive BACTRIM DS 800-160 MG ORAL TABLET [...] 20 19/03/05 DIFLUCAN 100 MG ORAL TABLET 933322 FLUCONAZOLE Inactive BACTRIM DS 800-160 MG ORAL TABLET 1 tab by mouth twice daily 201 05/10/28 BACTRIM DS 800-160 MG ORAL TABLET 201177 TRIMETHOPRIM-SULFAMETHOXAZOLE Inactive AMOXICILLIN 500 MG ORAL CAPSULE 1 cap by mouth three times a day AMOXICILLIN 500 MG ORAL CAPSULE 200366 AMOXICILLIN Inactive ZITHROMAX 250 MG ORAL TABLET 2 po today, then 1 po q days 2-5 20 20/04/28 ZITHROMAX 250 MG ORAL TABLET 218770 AZITHROMYCIN [place] ctive DIFLUCAN 100 MG ORAL TABLET 1 tablet by mouth daily 20 20/05/01 DIFLUCAN 100 MG ORAL TABLET 137220 FLUCONAZOLE Inactive BACTRIM DS 800-160 MG ORAL TABLET 1 tab by mouth twice daily 201 06/09/02 BACTRIM DS 800-160 MG ORAL TABLET 734694 TRIMETHOPRIM-SULFAMETHOXAZOLE Inactive Advance Directives Directive Description Start Date PERMISSION TO SHARE DISCUSSED WITH PATIENT -- NO DECISION MADE DURABLE POWER OF SSN/SSBN ASSISTANT NAVIGATOR FOR HEALTHCARE DISCUSED WITH PATIENT -- FULL CODE Vital Signs Date Name Value Unit Range Description blood pressure, diastolic 77 mm[Hg] BP lyon [...] weight E&M 117.5 [lb_av] Weight Measure d Diagnostic Results Date Name Value Unit Range Description Chart Maintenance: hemoccult added to fl ow sheet - Chemistry occult blood, stool (E&M) Negative Lab Report: Comp. Metabolic Panel, [facility] - Chemistry sodium, serum 141 mmol/L 041-175 7357/01/26 carbon dioxide, venous blood 29.5 mmol/L 21.0-32 [...] dipstick Trace-lysed Negative sodium, serum 139 mmol/L 672-756 9265/11/07 carbon dioxide, venous blood 28.4 mmol/L 21.0-32 [...] 1.015 1.000-1.030 pH, urine, semiquantitative 5.5 5.0-8.5 Office Visit: 3 MO F/U - Basic LDL target level 160 mg/dL Office Visit: 3 MO F/U - Chemistry HDL cholesterol, serum, target level 40 mg/dL triglyceride, target level 150 mg/dL cholesterol, target level 200 mg/dL Encounters Code Encounter Date Provider Facility CPT-88100 [id number] Vst-Est Level IV 19:27:[address] Tesfaye Sherman MD [facility] CPT-36178 [id number] Vst-Est Level IV 10:41:41 C DT Tesfaye Sherman MD [facility] CPT-69921 [id number] Vst-Est Level III 09:40:56 CDT Tesfaye Sherman MD [facility] CPT-52458 Level 4 Est. Patient 22:18:12 CDT Tesfaye pearson MD [facility] CPT-70724 Level 4 Est. Patient 14:44:33 OVERLAY OPERATOR Tesfaye pearson MD [facility] CPT-56293 Level 4 Est. Patient 13:55:29 OVERLAY OPERATOR Tesfaye pearson MD [facility] CPT-11620 Level 4 Est. Patient 17:07:34 OVERLAY OPERATOR Tesfaye pearson MD [facility] CPT-58884 Level 4 Est. Patient 13:56:54 CDT Tesfaye pearson MD [facility] CPT-56331 Level 4 Est. Patient 13:24:25 CDT Chelsea sanz APRN [facility] CPT-89183 Level 4 Est. Patient 09:14:56 CDT Tesfaye pearson MD [facility] CPT-00330 Level 4 Est. Patient 18:40:25 OVERLAY OPERATOR Tesfaye pearson MD [facility]-57497 Level 4 Est. Patient 18:13:07 OVERLAY OPERATOR Tesfaye pearson MD [facility]-21755 Level 3 Est. Patient 10:46:32 CDT Rj cotto DO [facility]-49433 Level 4 Est. Patient 20:19:25 CDT Tesfaye pearson MD [facility]-90106 Level 3 Est. Patient 09:07:31 CDT Tesfaye pearson MD [facility]-99345 Level 4 Est. Patient 13:12:56 CDT Tesfaye pearson MD [facility]-59434 Level 4 Est. Patient 21:24:55 OVERLAY OPERATOR Tesfaye pearson MD [facility]-26437 Level 3 Est. Patient 13:45:04 OVERLAY OPERATOR Tesfaye pearson MD [facility] CPT-03308 Level 4 Est. Patient 13:50:45 CDT Tesfyae pearson MD [facility]-20206 Level 3 Est. Patient 10:16:10 CDT Tesfaye pearson MD [facility] CPT-94244 Level 3 Est. Patient 16:36:07 OVERLAY OPERATOR Kayla jameson MD [facility]-80581 Level 4 Est. Patient 16:00:14 OVERLAY OPERATOR Tesfaye pearson MD [facility]-38869 Level 4 Est. Patient 11:02:24 OVERLAY OPERATOR Tesfaye pearson MD [facility]-07402 Level 3 Est. Patient 20:21:43 OVERLAY OPERATOR Kayla jameson MD [facility]-37374 Level 3 Est. Patient 13:27:28 OVERLAY OPERATOR Kayla jameson MD [facility]-81620 Level 4 Est. Patient 15:57:17 OVERLAY OPERATOR Tesfaye pearson MD [facility] CPT-83515 Level 3 New Patient 13:25:47 CDT Tesfaye kidd MD [facility] CPT-69938 Level 3 New Patient 17:22:21 CDT Kayla angel MD [facility] Procedures Code Procedure Name Date Entry Date Standard Desc ription CPT-G0439 Subsequent Annual Wellness Exam 22:18:11 CDT CPT-33528 Bone Density - XRAY USE ONLY 11:43:58 CDT 2 CPT-36306 Bone Density - XRAY USE ONLY 10:05:16 CDT 2 CPT-45242 Prv Med New Pt 40-64 yrs 18:19:25 CDT 2016 CPT-23724 Foot, right, comp min 3V - XRAY USE ONLY 10:38:34 CDT CPT-G0439 Subsequent Annual Wellness Exam 13:55:04 CDT CPT-G0438 Initial Annual Wellness Exam 11:23:17 CD T CPT-J2930 Solu Medrol 125 mg (Methyl Prednisolone Sodium Succinate) 17:29:12 OVERLAY OPERATOR CPT-13384 Abx/Therapy Injection 17:29:11 OVERLAY OPERATOR CPT-J2930 Solu Medrol 125 mg (Methyl Prednisolone Sodium Succinate) 12:34:38 OVERLAY OPERATOR CPT-J3420 Vitamin B12 1000mcg (Cyanocobalamin) 09:12:55 CDT CPT-J3420 Vitamin B12 1000mcg (Cyanocobalamin) 16:28:06 OVERLAY OPERATOR CPT-90308 Venipuncture Draw Fee 08:39:53 CDT CPT-J3420 Vitamin B12 1000mcg (Cyanocobalamin) 08:46:22 CDT CPT-55718 Abx/Therapy Injection 08:46:22 CDT CPT-J3420 Vitamin B12 1000mcg (Cyanocobalamin) 08:41:26 CDT CPT-18949 Abx/Therapy Injection 08:41:26 CDT CPT-J3420 Vitamin B12 1000mcg (Cyanocobalamin) 08:57:15 CDT CPT-48157 Abx/Therapy Injection 08:57:15 CDT CPT-J3420 Vitamin B12 1000mcg (Cyanocobalamin) 10:59:03 CDT CPT-81320 Abx/Therapy Injection 10:59:03 CDT CPT-J3420 Vitamin B12 1000mcg (Cyanocobalamin) 15:05:39 CDT CPT-06409 Abx/Therapy Injection 15:05:39 CDT CPT-J3420 Vitamin B12 1000mcg (Cyanocobalamin) 13:50:45 CDT CPT-J3420 Vitamin B12 1000mcg (Cyanocobalamin) 08:48:55 CDT CPT-23867 Abx/Therapy Injection 08:48:55 CDT CPT-J3420 Vitamin B12 1000mcg (Cyanocobalamin) 09:14:54 CDT CPT-82645 Abx/Therapy Injection 09:14:54 CDT CPT-J3420 Vitamin B12 1000mcg (Cyanocobalamin) 09:06:06 CDT CPT-90469 Abx/Therapy Injection 09:06:06 CDT CPT-J3420 Vitamin B12 1000mcg (Cyanocobalamin) 09:49:14 CDT CPT-19920 Abx/Therapy Injection 09:49:14 CDT CPT-J3420 Vitamin B12 1000mcg (Cyanocobalamin) 09:10:30 OVERLAY OPERATOR CPT-68875 Abx/Therapy Injection 09:10:30 OVERLAY OPERATOR CPT-J3420 Vitamin B12 1000mcg (Cyanocobalamin) 09:11:07 OVERLAY OPERATOR CPT-09287 Abx/Therapy Injection 09:11:07 OVERLAY OPERATOR CPT-J3420 Vitamin B12 1000mcg (Cyanocobalamin) 09:57:03 OVERLAY OPERATOR CPT-90028 Abx/Therapy Injection 09:57:03 OVERLAY OPERATOR CPT-J3420 Vitamin B12 1000mcg (Cyanocobalamin) 09:23:21 OVERLAY OPERATOR CPT-58613 Abx/Therapy Injection 09:23:21 OVERLAY OPERATOR CPT-31073 Urine Dip (Floor Use Only) 20:21:44 OVERLAY OPERATOR 201 02/12/11 CPT-32335 UA Dip Auto (Floor Use Only) 10:04:39 OVERLAY OPERATOR 2 CPT-06573 Urine Dip (Floor Use Only) 13:27:28 OVERLAY OPERATOR 201 02/12/01 CPT-30343 Bladder Scan 13:27:28 OVERLAY OPERATOR CPT-80283 Abd single AP View 14:30:51 OVERLAY OPERATOR CPT-OV Office Visit 10:15:43 CDT CPT-77527 Urine Dip (Floor Use Only) 17:22:21 CDT 201 02/09/02 CPT-58103 Bladder Scan 17:22:21 CDT
--- OUTSIDE RECORDS SUMMARY | 2020-05-05 12:29 | XMS REPORT | Clinical Summary ---
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 MARIA ELENA PIPRAZOLE [id number] Active Tesfaye Sherman MD Active CYMBALTA 60 MG ORAL CAPSULE DELAYED RELEASE PARTICLES 1 cap by mouth daily for pain DULOXETINE HCL 32643566413 Active Tesfaye Owusu Active DIFLUCAN 100 MG ORAL TABLET 1 tablet by mouth daily 20 20/06/06 FLUCONAZOLE 37077599188 No Longer Active Tesfaye Sherman MD Acti ve PREDNISONE 20 MG ORAL TABLET 1 tablet by mouth twice d aily for 3 days, then 1 tablet daily for 3 days PREDNISONE 24270981604 No L onger Active Tesfaye Sherman MD Active DIFLUCAN 100 MG ORAL TABLET 1 tablet by mouth daily FLUCONAZOLE 81716965105 Active Tesfaye Sherman MD Active BACTRIM DS 800-160 MG ORAL TABLET 1 tab by mouth twice daily 201 06/09/02 TRIMETHOPRIM-SULFAMETHOXAZOLE 50735560251 No Longer Active Fer Dominguez Active DIFLUCAN 100 MG ORAL TABLET 1 tablet by mouth daily 20 20/05/01 FLUCONAZOLE 30254686722 No Longer Active Tesfaye Sherman MD Acti ve ZITHROMAX 250 MG ORAL TABLET 2 po today, then 1 po q days 2-5 20 20/04/28 AZITHROMYCIN 01517475864 No Longer Active Tesfaye Sherman MD Active MECLIZINE HCL 25 MG ORAL TABLET one tab po qday prn dizziness 20 17/09/06 MECLIZINE HCL 39636323658 No Longer Active Tesfaye Sherman MD Active PROAIR HFA 108 (90 BASE) MCG/ACT INHALATION AEROSOL SO LUTION 1 puff every 6 hours as needed ALBUTEROL SULFATE 33591854047 No Long er Active Tesfaye Sherman MD Active OXYCODONE-ACETAMINOPHEN 5-325 MG ORAL TABLET Take one tablet by mouth every 6 hours as needed. Use sparingly OXYCODONE-ACETAMINOPHEN 84058178184 Active Tesfaye Sherman MD Active PREDNISONE 20 MG ORAL TABLET 1 tab twice daily for 3 d ay, then one daily for three days PREDNISONE 88009705596 No Longer Active Tesfaye Sherman MD Active MECLIZINE HCL 25 MG ORAL TABLET one 4 times a day as needed for dizziness MECLIZINE HCL 25546755946 Active Tesfaye Sherman MD Active AMOXICILLIN 500 MG ORAL CAPSULE 1 cap by mouth three times a day AMOXICILLIN 32415107185 No Longer Active Laurence Dominguez Acti ve VENLAFAXINE HCL 75 MG ORAL TABLET 1 am 1/2 at noon VENLAFAXINE HCL 17591739658 Active Tesfaye Sherman MD Active DIFLUCAN 100 MG ORAL TABLET 1 tablet by mouth daily 20 19/08/26 FLUCONAZOLE 91795135443 No Longer Active Tesfaye Sherman MD Acti ve BACTRIM DS 800-160 MG ORAL TABLET 1 tab by mouth twice daily 201 05/10/28 TRIMETHOPRIM-SULFAMETHOXAZOLE 45068858894 No Longer Active A mirna Angelica Active FOSAMAX 70 MG ORAL TABLET 1 po qweek. Take 30min prio r to first food/drink. Avoid lying down x 1 hour. ALENDRONATE SODIUM 31510757 144 No Longer Active Laurence Lopezduyen Active REPHRESH PRO-B ORAL CAPSULE 1 tablet daily LACT OBACILLUS 51872279061 Active Edith Burch MD Active CYMBALTA 60 MG ORAL CAPSULE DELAYED RELEASE PARTICLES Take 1 tablet by mouth daily DULOXETINE HCL 09034169010 No Longer Active Edith Burch MD Active CYMBALTA 30 MG ORAL CAPSULE DELAYED RELEASE PARTICLES 1 cap by mouth daily with 60mg DULOXETINE HCL 27325016628 No Longer Active Jordan Burch MD Active FISH OIL 1000 MG ORAL CAPSULE DELAYED RELEASE 1 pill b y mouth daily for cholesterol OMEGA-3 FATTY ACIDS 17741465531 Active Cee Jaffe LPN Active RED YEAST RICE 600 MG ORAL CAPSULE 1 pill by mouth daily RED YEAST RICE EXTRACT 29702955695 Active Rosa Jaffe LPN Activ e DIFLUCAN 100 MG ORAL TABLET 1 tablet by mouth daily 19/03/05 FLUCONAZOLE 85791696888 No Longer Active Tesfaye Mcdonaldi ve BACTRIM DS 800-160 MG ORAL TABLET 1 tab by mouth twice daily 201 05/06/28 TRIMETHOPRIM-SULFAMETHOXAZOLE 07583565461 No Longer Active Umer Sherman MD Active BACTRIM DS 800-160 MG ORAL TABLET 1 tab by mouth twice daily 201 05/04/15 TRIMETHOPRIM-SULFAMETHOXAZOLE 27681525814 No Longer Active Umer Sherman MD Active DIFLUCAN 150 MG ORAL TABLET 1 tablet by mouth daily 20 18/09/20 FLUCONAZOLE 34436516965 No Longer Active Tesfaye Sherman MD Acti ve BACTRIM DS 800-160 MG ORAL TABLET 1 tab by mouth twice daily 201 04/13/17 TRIMETHOPRIM-SULFAMETHOXAZOLE 46651482472 No Longer Active Umer Sherman MD Active ROPINIROLE HCL 0.25 MG ORAL TABLET 1 TAB PO Q HS ROPINIROLE HCL 31646769354 Active Tesfaye Sherman MD Active CEFTIN 250 MG ORAL TABLET 1 tablet twice daily x 7 days CEFUROXIME AXETIL 32657059642 No Longer Active Tesfaye Sherman MD Active DIFLUCAN 100 MG ORAL TABLET 1 tablet by mouth every other da y for 2 doses FLUCONAZOLE 34725837483 No Longer Active Tesfaye barron MD Active DIFLUCAN 100 MG ORAL TABLET 1 tablet by mouth daily X 3 DAYS 201 04/09/01 FLUCONAZOLE 79937618012 No Longer Active Rj Lyons tive MIRTAZAPINE 15 MG ORAL TABLET 1/2 tab by mouth at bedtime. 03/13 MIRTAZAPINE 11180126982 No Longer Active Tesfaye Sherman MD Active BACTRIM DS 800-160 MG ORAL TABLET 1 tab by mouth twice daily 201 04/09/01 TRIMETHOPRIM-SULFAMETHOXAZOLE 90959577035 No Longer Active Umer Sherman MD Active PRAMIPEXOLE DIHYDROCHLORIDE 0.125 MG ORAL TABLET take 1 tablet po qhs for restless leg syndrome. PRAMIPEXOLE DIHYDROCHLORI DE 37927730073 No Longer Active Tesfaye Sherman MD Active MAGNESIUM 400 MG ORAL TABLET 1 tab po daily MAGNE SIUM 30473997381 Active Chelsea Cardenas APRN Active SUDAFED 24 HOUR 240 MG ORAL TABLET EXTENDED RELEASE 24 HOUR 1 tab po daily PSEUDOEPHEDRINE HCL 75779694120 Active Chelsea Cardenas APRN Active CETIRIZINE HCL 5 MG ORAL TABLET Take 1 tablet by mouth daily CETIRIZINE HCL 48236758748 No Longer Active Chelsea Cardenas APRN Activ e TRIMETHOPRIM 100 MG ORAL TABLET 1/2 qd TRIM ETHOPRIM 68236342597 No Longer Active Chelsea Cardenas APRN Active BACTRIM DS 800-160 MG ORAL TABLET 1 tab by mouth twice daily 201 04/04/11 TRIMETHOPRIM-SULFAMETHOXAZOLE 97343857918 No Longer Active Umer Sherman MD Active BACTRIM DS 800-160 MG ORAL TABLET 1 tab by mouth twice daily X 10 DAYS TRIMETHOPRIM-SULFAMETHOXAZOLE 66673779086 No Longer Active Tesfaye Sherman MD Active AMOXICILLIN 500 MG ORAL CAPSULE 1 cap by mouth three times a day AMOXICILLIN 91201039388 No Longer Active Adriana Arredondo Active B-12 1000 MCG ORAL LOZENGE 1 tab po daily CYANO COBALAMIN 39262576782 Active Tesfaye Sherman MD Active VITAMIN D3 2000 UNIT ORAL TABLET 1 daily, for vitamin D deficien cy CHOLECALCIFEROL 59860255841 No Longer Active Tesfaye Sherman MD Active TIZANIDINE HCL 2 MG ORAL TABLET take 1-2 tablet by [facility] every day at bedtime at 9pm PRN TIZANIDINE HCL 69967775489 Active Tesfaye hewitt MD Active ZITHROMAX 250 MG ORAL TABLET 2 po today, then 1 po q days 2-5 20 15/02/10 AZITHROMYCIN 21737713383 No Longer Active Tesfaye Sherman MD Active BACTRIM DS 800-160 MG ORAL TABLET 1 tab by mouth twice daily 201 03/03/23 TRIMETHOPRIM-SULFAMETHOXAZOLE 28008268589 No Longer Active Umer Sherman MD Active PRELIEF 340 (65-50) MG (CA-P) ORAL TABLET CALCIUM GLYCEROPHOSPHATE 46637872966 Active Tesfaye Sherman MD Acti ve [facility] NIACIN FLUSH FREE 400-100 MG ORAL CAPSULE 1 daily NIACIN-INOSITOL 38447276933 Active Kayla Cooper MD Activ e DIFLUCAN 150 MG ORAL TABLET 1 qd FLUCONAZOL E 96197562554 No Longer Active Kayla Cooper MD Active FLUTICASONE PROPIONATE 50 MCG/ACT NASAL SUSPENSION 1 spray each nostril twice daily FLUTICASONE PROPIONATE 92915088788 Active D patricia Sherman MD Active LOVASTATIN 20 MG ORAL TABLET Take 1 tablet by mouth daily LOVASTATIN 02550105048 No Longer Active Tesfaye Sherman MD Acti ve MELOXICAM 7.5 MG ORAL TABLET 1 tablet by mouth daily 2 MELOXICAM 26050528841 No Longer Active Tesfaye Sherman MD Acti ve GABAPENTIN 300 MG ORAL CAPSULE Take two tablets by mouth every e vening GABAPENTIN 72238981194 No Longer Active Edith Burch MD A ctive CLONAZEPAM 0.5 MG ORAL TABLET Take one tablet in the m orning and 1.5 tablet at 7pm CLONAZEPAM 47294376040 Active Kayla Cooper MD Active BACLOFEN 10 MG ORAL TABLET Take one tablet by mouth three times a d ay BACLOFEN 54880583368 Active Kayla Cooper MD Active GABAPENTIN 300 MG ORAL CAPSULE Take two tablets by mouth every e vening GABAPENTIN 300 MG ORAL CAPSULE 534954 GABAPENTIN I nactive MELOXICAM 7.5 MG ORAL TABLET 1 tablet by mouth daily 2 MELOXICAM 7.5 MG ORAL TABLET 332781 MELOXICAM Inactive LOVASTATIN 20 MG ORAL TABLET Take 1 tablet by mouth daily LOVASTATIN 20 MG ORAL TABLET 748434 LOVASTATIN Inactive DIFLUCAN 150 MG ORAL TABLET 1 qd DIFLUCAN 150 MG ORAL TABLET 605832 FLUCONAZOLE Inactive VITAMIN D3 2000 UNIT ORAL TABLET 1 daily, for vitamin D deficien cy VITAMIN D3 2000 UNIT ORAL TABLET CHOLECALCIFEROL Inactive AMOXICILLIN 500 MG ORAL CAPSULE 1 cap by mouth three times a day AMOXICILLIN 500 MG ORAL CAPSULE 162748 AMOXICILLIN Inactive BACTRIM DS 800-160 MG ORAL TABLET 1 tab by mouth twice daily X 10 DAYS BACTRIM DS 800-160 MG ORAL TABLET 19830105 TRIMETHOPRIM-SULFAMETHOXAZOLE Inactive TRIMETHOPRIM 100 MG ORAL TABLET 1/2 qd 7 TRIMETHOPRIM 100 MG ORAL TABLET 19830102 TRIMETHOPRIM Inactive CETIRIZINE HCL 5 MG ORAL TABLET Take 1 tablet by mouth daily CETIRIZINE HCL 5 MG ORAL TABLET 8623026 CETIRIZINE HCL Inactive PRAMIPEXOLE DIHYDROCHLORIDE 0.125 MG ORAL TABLET take 1 tablet po qhs for restless leg syndrome. PRAMIPEXOLE DIHYD ROCHLORIDE 0.125 MG ORAL TABLET 293421 PRAMIPEXOLE DIHYDROCHLORIDE Inactive MIRTAZAPINE 15 MG ORAL TABLET 1/2 tab by mouth at bedtime. 03/13 MIRTAZAPINE 15 MG ORAL TABLET 267447 MIRTAZAPINE In active DIFLUCAN 100 MG ORAL TABLET 1 tablet by mouth daily X 3 DAYS 201 04/09/01 DIFLUCAN 100 MG ORAL TABLET 959952 FLUCONAZOLE Inac tive DIFLUCAN 100 MG ORAL TABLET 1 tablet by mouth every other da y for 2 doses DIFLUCAN 100 MG ORAL TABLET 715189 FLUCONAZOLE Inactive CEFTIN 250 MG ORAL TABLET 1 tablet twice daily x 7 days CEFTIN 250 MG ORAL TABLET CEFUROXIME AXETIL Inactive CYMBALTA 30 MG ORAL CAPSULE DELAYED RELEASE PARTICLES 1 cap by mouth daily with 60mg CYMBALTA 30 MG ORAL CAPSULE DELAYED RELEASE PARTICLES 253306 DULOXETINE HCL Inactive CYMBALTA 60 MG ORAL CAPSULE DELAYED RELEASE PARTICLES Take 1 tablet by mouth daily CYMBALTA 60 MG ORAL CAPSULE DELAYED RELEA SE PARTICLES 495948 DULOXETINE HCL Inactive FOSAMAX 70 MG ORAL TABLET 1 po qweek. Take 30min prio r to first food/drink. Avoid lying down x 1 hour. FOSAMAX 70 MG ORAL TA BLET 885311 ALENDRONATE SODIUM Inactive DIFLUCAN 100 MG ORAL TABLET 1 tablet by mouth daily 19/08/26 DIFLUCAN 100 MG ORAL TABLET 063413 FLUCONAZOLE Inactive PREDNISONE 20 MG ORAL TABLET 1 tab twice daily for 3 d ay, then one daily for three days PREDNISONE 20 MG ORAL TABLET 264227 PREDNIS ONE Inactive PROAIR HFA 108 (90 BASE) MCG/ACT INHALATION AEROSOL SO LUTION 1 puff every 6 hours as needed PROAIR HFA 108 (90 B ASE) MCG/ACT INHALATION AEROSOL SOLUTION ALBUTEROL SULFATE Inactive MECLIZINE HCL 25 MG ORAL TABLET one tab po qday prn dizziness 20 17/09/06 MECLIZINE HCL 25 MG ORAL TABLET 613063 MECLIZINE HCL Inactive PREDNISONE 20 MG ORAL TABLET 1 tablet by mouth twice d aily for 3 days, then 1 tablet daily for 3 days PREDNISONE 20 MG ORAL TA BLET 666468 PREDNISONE Inactive DIFLUCAN 100 MG ORAL TABLET 1 tablet by mouth daily 20 20/06/06 DIFLUCAN 100 MG ORAL TABLET 036901 FLUCONAZOLE Inactive BACTRIM DS 800-160 MG ORAL TABLET 1 tab by mouth twice daily 201 03/03/23 BACTRIM DS 800-160 MG ORAL TABLET 19830105 TRIMETHOPRIM-SULFAMETHOXAZOLE Inactive ZITHROMAX 250 MG ORAL TABLET 2 po today, then 1 po q days 2-5 20 15/02/10 ZITHROMAX 250 MG ORAL TABLET 428942 AZITHROMYCIN [place] ctive BACTRIM DS 800-160 MG ORAL TABLET [...] 20 19/03/05 DIFLUCAN 100 MG ORAL TABLET 423876 FLUCONAZOLE Inactive BACTRIM DS 800-160 MG ORAL TABLET 1 tab by mouth twice daily 201 05/10/28 BACTRIM DS 800-160 MG ORAL TABLET 170281 TRIMETHOPRIM-SULFAMETHOXAZOLE Inactive AMOXICILLIN 500 MG ORAL CAPSULE 1 cap by mouth three times a day AMOXICILLIN 500 MG ORAL CAPSULE 935562 AMOXICILLIN Inactive ZITHROMAX 250 MG ORAL TABLET 2 po today, then 1 po q days 2-5 20 20/04/28 ZITHROMAX 250 MG ORAL TABLET 106391 AZITHROMYCIN [place] ctive DIFLUCAN 100 MG ORAL TABLET 1 tablet by mouth daily 20 20/05/01 DIFLUCAN 100 MG ORAL TABLET 457601 FLUCONAZOLE Inactive BACTRIM DS 800-160 MG ORAL TABLET 1 tab by mouth twice daily 201 06/09/02 BACTRIM DS 800-160 MG ORAL TABLET 851012 TRIMETHOPRIM-SULFAMETHOXAZOLE Inactive Advance Directives Directive Description Start Date PERMISSION TO SHARE DISCUSSED WITH PATIENT -- NO DECISION MADE DURABLE POWER OF ACCOUNTING CLERKS SUPERVISOR FOR HEALTHCARE DISCUSED WITH PATIENT -- [...] sium - Chemistry sodium, serum 141 mmol/L 397-139 0286/01/26 carbon dioxide, venous blood 29.5 mmol/L 21.0-32 [...] dipstick Trace-lysed Negative sodium, serum 139 mmol/L 029-754 2943/11/07 carbon dioxide, venous blood 28.4 mmol/L 21.0-32 [...] mg/dL Encounters Code Encounter Date Provider Facility CPT-05717 [id number] Vst-Est Level IV 19:27:[address] Tesfaye Sherman MD [facility] CPT-84152 [id number] Vst-Est Level IV 10:41:41 C DT Tesfaye Sherman MD [facility] CPT-92739 [id number] Vst-Est Level III 09:40:56 CDT Tesfaye Sherman MD [facility] CPT-93942 Level 4 Est. Patient 22:18:12 CDT Tesfaye pearson MD [facility] CPT-08446 Level 4 Est. 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 Patient 13:55:29 INSPECTOR PACKAGER Tesfaye pearson MD [facility] CPT-41874 Level 4 Est. Patient 17:07:34 INSPECTOR PACKAGER Tesfaye pearson MD [facility] CPT-10315 Level 4 Est. Patient 13:56:54 CDT Tesfaye pearson MD [facility] CPT-22962 Level 4 Est. Patient 13:24:25 CDT Chelsea sanz APRN [facility] CPT-52343 Level 4 Est. Patient 09:14:56 CDT Tesfaye pearson MD [facility] CPT-75652 Level 4 Est. Patient 18:40:25 INSPECTOR PACKAGER Tesfaye pearson MD [facility]-87442 Level 4 Est. Patient 18:13:07 INSPECTOR PACKAGER Tesfaye pearson MD [facility]-15550 Level 3 Est. Patient 10:46:32 CDT Rj cotto DO [facility]-52280 Level 4 Est. Patient 20:19:25 CDT Tesfaye pearson MD [facility]-92024 Level 3 Est. Patient 09:07:31 CDT Tesfaye pearson MD [facility]-08616 Level 4 Est. Patient 13:12:56 CDT Tesfaye pearson MD [facility]-73815 Level 4 Est. Patient 21:24:55 INSPECTOR PACKAGER Tesfaye pearson MD [facility]-58567 Level 3 Est. Patient 13:45:04 INSPECTOR PACKAGER Tesfaye pearson MD [facility] CPT-61961 Level 4 Est. Patient 13:50:45 CDT Tesfaye pearson MD [facility]-68713 Level 3 Est. Patient 10:16:10 CDT Tesfaye pearson MD [facility] CPT-33744 Level 3 Est. Patient 16:36:07 INSPECTOR PACKAGER Kayla jameson MD [facility]-92097 Level 4 Est. Patient 16:00:14 INSPECTOR PACKAGER Tesfaye pearson MD [facility]-68762 Level 4 Est. Patient 11:02:24 INSPECTOR PACKAGER Tesfaye pearson MD [facility]-21297 Level 3 Est. Patient 20:21:43 INSPECTOR PACKAGER Kayla jameson MD [facility]-64008 Level 3 Est. Patient 13:27:28 INSPECTOR PACKAGER Kayla jameson MD [facility]-33954 Level 4 Est. Patient 15:57:17 INSPECTOR PACKAGER Tesfaye pearson MD [facility] CPT-28809 Level 3 New Patient 13:25:47 CDT Tesfaye kidd MD [facility] CPT-03789 Level 3 New Patient 17:22:21 CDT Kayla angel MD [facility] Procedures Code Procedure Name Date Entry Date Standard Desc ription CPT-G0439 Subsequent Annual Wellness Exam 22:18:11 CDT CPT-76467 Bone Density - XRAY USE ONLY 11:43:58 CDT 2 CPT-42893 Bone Density - XRAY USE ONLY 10:05:16 CDT 2 CPT-53077 Prv Med New Pt 40-64 yrs 18:19:25 CDT 2016 CPT-27752 Foot, right, comp min 3V - XRAY USE ONLY 10:38:34 CDT CPT-G0439 Subsequent Annual Wellness Exam 13:55:04 CDT CPT-G0438 Initial Annual Wellness Exam 11:23:17 CD T CPT-J2930 Solu Medrol 125 mg (Methyl Prednisolone Sodium Succinate) 17:29:12 INSPECTOR PACKAGER CPT-24873 Abx/Therapy Injection 17:29:11 INSPECTOR PACKAGER CPT-J2930 Solu Medrol 125 mg (Methyl Prednisolone Sodium Succinate) 12:34:38 INSPECTOR PACKAGER CPT-J3420 Vitamin B12 1000mcg (Cyanocobalamin) 09:12:55 CDT CPT-J3420 Vitamin B12 1000mcg (Cyanocobalamin) 16:28:06 INSPECTOR PACKAGER CPT-37847 Venipuncture Draw Fee 08:39:53 CDT CPT-J3420 Vitamin B12 1000mcg (Cyanocobalamin) 08:46:22 CDT CPT-00420 Abx/Therapy Injection 08:46:22 CDT CPT-J3420 Vitamin B12 1000mcg (Cyanocobalamin) 08:41:26 CDT CPT-53199 Abx/Therapy Injection 08:41:26 CDT CPT-J3420 Vitamin B12 1000mcg (Cyanocobalamin) 08:57:15 CDT CPT-19652 Abx/Therapy Injection 08:57:15 CDT CPT-J3420 Vitamin B12 1000mcg (Cyanocobalamin) 10:59:03 CDT CPT-39990 Abx/Therapy Injection 10:59:03 CDT CPT-J3420 Vitamin B12 1000mcg (Cyanocobalamin) 15:05:39 CDT CPT-43664 Abx/Therapy Injection 15:05:39 CDT CPT-J3420 Vitamin B12 1000mcg (Cyanocobalamin) 13:50:45 CDT CPT-J3420 Vitamin B12 1000mcg (Cyanocobalamin) 08:48:55 CDT CPT-78059 Abx/Therapy Injection 08:48:55 CDT CPT-J3420 Vitamin B12 1000mcg (Cyanocobalamin) 09:14:54 CDT CPT-27685 Abx/Therapy Injection 09:14:54 CDT CPT-J3420 Vitamin B12 1000mcg (Cyanocobalamin) 09:06:06 CDT CPT-21462 Abx/Therapy Injection 09:06:06 CDT CPT-J3420 Vitamin B12 1000mcg (Cyanocobalamin) 09:49:14 CDT CPT-13898 Abx/Therapy Injection 09:49:14 CDT CPT-J3420 Vitamin B12 1000mcg (Cyanocobalamin) 09:10:30 INSPECTOR PACKAGER CPT-09774 Abx/Therapy Injection 09:10:30 INSPECTOR PACKAGER CPT-J3420 Vitamin B12 1000mcg (Cyanocobalamin) 09:11:07 INSPECTOR PACKAGER CPT-48561 Abx/Therapy Injection 09:11:07 INSPECTOR PACKAGER CPT-J3420 Vitamin B12 1000mcg (Cyanocobalamin) 09:57:03 INSPECTOR PACKAGER CPT-06346 Abx/Therapy Injection 09:57:03 INSPECTOR PACKAGER CPT-J3420 Vitamin B12 1000mcg (Cyanocobalamin) 09:23:21 INSPECTOR PACKAGER CPT-33692 Abx/Therapy Injection 09:23:21 INSPECTOR PACKAGER CPT-17641 Urine Dip (Floor Use Only) 20:21:44 INSPECTOR PACKAGER 201 02/12/11 CPT-07856 UA Dip Auto (Floor Use Only) 10:04:39 INSPECTOR PACKAGER 2 CPT-80681 Urine Dip (Floor Use Only) 13:27:28 INSPECTOR PACKAGER 201 02/12/01 CPT-05998 Bladder Scan 13:27:28 INSPECTOR PACKAGER CPT-98725 Abd single AP View 14:30:51 INSPECTOR PACKAGER CPT-OV Office Visit 10:15:43 CDT CPT-04355 Urine Dip (Floor Use Only) 17:22:21 CDT 201 02/09/02 CPT-15315 Bladder Scan 17:22:21 CDT
--- OUTSIDE RECORDS SUMMARY | 2020-05-05 12:29 | XMS REPORT | Clinical Summary ---
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 MARIA ELENA PIPRAZOLE 06202974776 Active Tesfaye Sherman MD Active CYMBALTA 60 MG ORAL CAPSULE DELAYED RELEASE PARTICLES 1 cap by mouth daily for pain DULOXETINE HCL 68294012940 Active Tesfaye Owusu Active DIFLUCAN 100 MG ORAL TABLET 1 tablet by mouth daily 20 20/06/06 FLUCONAZOLE 97730145248 No Longer Active Tesfaye Sherman MD Acti ve PREDNISONE 20 MG ORAL TABLET 1 tablet by mouth twice d aily for 3 days, then 1 tablet daily for 3 days PREDNISONE 71073915628 No L onger Active Tesfaye Sherman MD Active DIFLUCAN 100 MG ORAL TABLET 1 tablet by mouth daily FLUCONAZOLE 03146356607 Active Tesfaye Sherman MD Active BACTRIM DS 800-160 MG ORAL TABLET 1 tab by mouth twice daily 201 06/09/02 TRIMETHOPRIM-SULFAMETHOXAZOLE 69291572424 No Longer Active Fer Dominguez Active DIFLUCAN 100 MG ORAL TABLET 1 tablet by mouth daily 20 20/05/01 FLUCONAZOLE 72431099132 No Longer Active Tesfaye Sherman MD Acti ve ZITHROMAX 250 MG ORAL TABLET 2 po today, then 1 po q days 2-5 20 20/04/28 AZITHROMYCIN 71931774814 No Longer Active Tesfaye Sherman MD Active MECLIZINE HCL 25 MG ORAL TABLET one tab po qday prn dizziness 20 17/09/06 MECLIZINE HCL 87497641415 No Longer Active Tesfaye Sherman MD Active PROAIR HFA 108 (90 BASE) MCG/ACT INHALATION AEROSOL SO LUTION 1 puff every 6 hours as needed ALBUTEROL SULFATE 34916360467 No Long er Active Tesfaye Sherman MD Active OXYCODONE-ACETAMINOPHEN 5-325 MG ORAL TABLET Take one tablet by mouth every 6 hours as needed. Use sparingly OXYCODONE-ACETAMINOPHEN 38705488208 Active Tesfaye Sherman MD Active PREDNISONE 20 MG ORAL TABLET 1 tab twice daily for 3 d ay, then one daily for three days PREDNISONE 60458025114 No Longer Active Tesfaye Sherman MD Active MECLIZINE HCL 25 MG ORAL TABLET one 4 times a day as needed for dizziness MECLIZINE HCL 32110498529 Active Tesfaye Sherman MD Active AMOXICILLIN 500 MG ORAL CAPSULE 1 cap by mouth three times a day AMOXICILLIN 02220743445 No Longer Active Laurence Dominguez Acti ve VENLAFAXINE HCL 75 MG ORAL TABLET 1 am 1/2 at noon VENLAFAXINE HCL 69925889845 Active Tesfaye Sherman MD Active DIFLUCAN 100 MG ORAL TABLET 1 tablet by mouth daily 20 19/08/26 FLUCONAZOLE 90600494733 No Longer Active Tesfaye Sherman MD Acti ve BACTRIM DS 800-160 MG ORAL TABLET 1 tab by mouth twice daily 201 05/10/28 TRIMETHOPRIM-SULFAMETHOXAZOLE 97652899193 No Longer Active A mirna Angelica Active FOSAMAX 70 MG ORAL TABLET 1 po qweek. Take 30min prio r to first food/drink. Avoid lying down x 1 hour. ALENDRONATE SODIUM 10893761 144 No Longer Active Laurence Lopezduyen Active REPHRESH PRO-B ORAL CAPSULE 1 tablet daily LACT OBACILLUS 47602548227 Active Edith Burch MD Active CYMBALTA 60 MG ORAL CAPSULE DELAYED RELEASE PARTICLES Take 1 tablet by mouth daily DULOXETINE HCL 85452589075 No Longer Active Edith Burch MD Active CYMBALTA 30 MG ORAL CAPSULE DELAYED RELEASE PARTICLES 1 cap by mouth daily with 60mg DULOXETINE HCL 34751621347 No Longer Active Jordan Burch MD Active FISH OIL 1000 MG ORAL CAPSULE DELAYED RELEASE 1 pill b y mouth daily for cholesterol OMEGA-3 FATTY ACIDS 40848091856 Active Cee Jaffe LPN Active RED YEAST RICE 600 MG ORAL CAPSULE 1 pill by mouth daily RED YEAST RICE EXTRACT 24512886380 Active Rosa Jaffe LPN Activ e DIFLUCAN 100 MG ORAL TABLET 1 tablet by mouth daily 19/03/05 FLUCONAZOLE 67008728289 No Longer Active Tesfaye Mcdonaldi ve BACTRIM DS 800-160 MG ORAL TABLET 1 tab by mouth twice daily 201 05/06/28 TRIMETHOPRIM-SULFAMETHOXAZOLE 76742322094 No Longer Active Umer Sherman MD Active BACTRIM DS 800-160 MG ORAL TABLET 1 tab by mouth twice daily 201 05/04/15 TRIMETHOPRIM-SULFAMETHOXAZOLE 29407563872 No Longer Active Umer Sherman MD Active DIFLUCAN 150 MG ORAL TABLET 1 tablet by mouth daily 20 18/09/20 FLUCONAZOLE 30912602497 No Longer Active Tesfaye Sherman MD Acti ve BACTRIM DS 800-160 MG ORAL TABLET 1 tab by mouth twice daily 201 04/13/17 TRIMETHOPRIM-SULFAMETHOXAZOLE 54079257831 No Longer Active Umer Sherman MD Active ROPINIROLE HCL 0.25 MG ORAL TABLET 1 TAB PO Q HS ROPINIROLE HCL 62139613783 Active Tesfaye Sherman MD Active CEFTIN 250 MG ORAL TABLET 1 tablet twice daily x 7 days CEFUROXIME AXETIL 97273328853 No Longer Active Tesfaye Sherman MD Active DIFLUCAN 100 MG ORAL TABLET 1 tablet by mouth every other da y for 2 doses FLUCONAZOLE 27435186164 No Longer Active Tesfaye barron MD Active DIFLUCAN 100 MG ORAL TABLET 1 tablet by mouth daily X 3 DAYS 201 04/09/01 FLUCONAZOLE 75725583983 No Longer Active Rj Lyons tive MIRTAZAPINE 15 MG ORAL TABLET 1/2 tab by mouth at bedtime. 03/13 MIRTAZAPINE 92623186322 No Longer Active Tesfaye Sherman MD Active BACTRIM DS 800-160 MG ORAL TABLET 1 tab by mouth twice daily 201 04/09/01 TRIMETHOPRIM-SULFAMETHOXAZOLE 45554460394 No Longer Active Umer Sherman MD Active PRAMIPEXOLE DIHYDROCHLORIDE 0.125 MG ORAL TABLET take 1 tablet po qhs for restless leg syndrome. PRAMIPEXOLE DIHYDROCHLORI DE 79273935188 No Longer Active Tesfaye Sherman MD Active MAGNESIUM 400 MG ORAL TABLET 1 tab po daily MAGNE SIUM 12509414597 Active Chelsea Cardenas APRN Active SUDAFED 24 HOUR 240 MG ORAL TABLET EXTENDED RELEASE 24 HOUR 1 tab po daily PSEUDOEPHEDRINE HCL 37788642077 Active Chelsea Cardenas APRN Active CETIRIZINE HCL 5 MG ORAL TABLET Take 1 tablet by mouth daily CETIRIZINE HCL 92996232129 No Longer Active Chelsea Cardenas APRN Activ e TRIMETHOPRIM 100 MG ORAL TABLET 1/2 qd TRIM ETHOPRIM 74577202694 No Longer Active Chelsea Cardenas APRN Active BACTRIM DS 800-160 MG ORAL TABLET 1 tab by mouth twice daily 201 04/04/11 TRIMETHOPRIM-SULFAMETHOXAZOLE 56848592377 No Longer Active Umer Sherman MD Active BACTRIM DS 800-160 MG ORAL TABLET 1 tab by mouth twice daily X 10 DAYS TRIMETHOPRIM-SULFAMETHOXAZOLE 73146924942 No Longer Active Tesfaye Sherman MD Active AMOXICILLIN 500 MG ORAL CAPSULE 1 cap by mouth three times a day AMOXICILLIN 61651039855 No Longer Active Adriana Arredondo Active B-12 1000 MCG ORAL LOZENGE 1 tab po daily CYANO COBALAMIN 16866081568 Active Tesfaye Sherman MD Active VITAMIN D3 2000 UNIT ORAL TABLET 1 daily, for vitamin D deficien cy CHOLECALCIFEROL 40314865836 No Longer Active Tesfaye Sherman MD Active TIZANIDINE HCL 2 MG ORAL TABLET take 1-[facility] at bed[facility] at 9pm PRN TIZANIDINE HCL 68063105628 Active Tesfaye hewitt MD Active ZITHROMAX 250 MG ORAL TABLET 2 po today, then 1 po q days 2-5 20 15/02/10 AZITHROMYCIN 41748074165 No Longer Active Tesfaye Sherman MD Active BACTRIM DS 800-160 MG ORAL TABLET 1 tab by mouth twice daily 201 03/03/23 TRIMETHOPRIM-SULFAMETHOXAZOLE 24295300923 No Longer Active Umer Sherman MD Active PRELIEF 340 (65-50) MG (CA-P) ORAL TABLET CALCIUM GLYCEROPHOSPHATE 95539973004 Active Tesfaye Sherman MD Acti ve [facility] NIACIN FLUSH FREE 400-100 MG ORAL CAPSULE 1 daily NIACIN-INOSITOL 78791995675 Active Kayla Cooper MD Activ e DIFLUCAN 150 MG ORAL TABLET 1 qd FLUCONAZOL E 67532124647 No Longer Active Kayla Cooper MD Active FLUTICASONE PROPIONATE 50 MCG/ACT NASAL SUSPENSION 1 spray each nostril twice daily FLUTICASONE PROPIONATE 16984800156 Active D patricia Sherman MD Active LOVASTATIN 20 MG ORAL TABLET Take 1 tablet by mouth daily LOVASTATIN 71042953583 No Longer Active Tesfaye Sherman MD Acti ve MELOXICAM 7.5 MG ORAL TABLET 1 tablet by mouth daily 2 MELOXICAM 81411840568 No Longer Active Tesfaye Sherman MD Acti ve GABAPENTIN 300 MG ORAL CAPSULE Take two tablets by mouth every e vening GABAPENTIN 88765194936 No Longer Active Edith Burch MD A ctive CLONAZEPAM 0.5 MG ORAL TABLET Take one tablet in the m orning and 1.5 tablet at 7pm CLONAZEPAM 03585696203 Active Kayla Cooper MD Active BACLOFEN 10 MG ORAL TABLET Take one tablet by mouth three times a d ay BACLOFEN 71620569404 Active Kayla Cooper MD Active GABAPENTIN 300 MG ORAL CAPSULE Take two tablets by mouth every e vening GABAPENTIN 300 MG ORAL CAPSULE 012383 GABAPENTIN I nactive MELOXICAM 7.5 MG ORAL TABLET 1 tablet by mouth daily 2 MELOXICAM 7.5 MG ORAL TABLET 407210 MELOXICAM Inactive LOVASTATIN 20 MG ORAL TABLET Take 1 tablet by mouth daily LOVASTATIN 20 MG ORAL TABLET 526136 LOVASTATIN Inactive DIFLUCAN 150 MG ORAL TABLET 1 qd DIFLUCAN 150 MG ORAL TABLET 937556 FLUCONAZOLE Inactive VITAMIN D3 2000 UNIT ORAL TABLET 1 daily, for vitamin D deficien cy VITAMIN D3 2000 UNIT ORAL TABLET CHOLECALCIFEROL Inactive AMOXICILLIN 500 MG ORAL CAPSULE 1 cap by mouth three times a day AMOXICILLIN 500 MG ORAL CAPSULE 664421 AMOXICILLIN Inactive BACTRIM DS 800-160 MG ORAL TABLET 1 tab by mouth twice daily X 10 DAYS BACTRIM DS 800-160 MG ORAL TABLET 19830105 TRIMETHOPRIM-SULFAMETHOXAZOLE Inactive TRIMETHOPRIM 100 MG ORAL TABLET 1/2 qd 7 TRIMETHOPRIM 100 MG ORAL TABLET 19830102 TRIMETHOPRIM Inactive CETIRIZINE HCL 5 MG ORAL TABLET Take 1 tablet by mouth daily CETIRIZINE HCL 5 MG ORAL TABLET 4649469 CETIRIZINE HCL Inactive PRAMIPEXOLE DIHYDROCHLORIDE 0.125 MG ORAL TABLET take 1 tablet po qhs for restless leg syndrome. PRAMIPEXOLE DIHYD ROCHLORIDE 0.125 MG ORAL TABLET 610779 PRAMIPEXOLE DIHYDROCHLORIDE Inactive MIRTAZAPINE 15 MG ORAL TABLET 1/2 tab by mouth at bedtime. 03/13 MIRTAZAPINE 15 MG ORAL TABLET 929328 MIRTAZAPINE In active DIFLUCAN 100 MG ORAL TABLET 1 tablet by mouth daily X 3 DAYS 201 04/09/01 DIFLUCAN 100 MG ORAL TABLET 269554 FLUCONAZOLE Inac tive DIFLUCAN 100 MG ORAL TABLET 1 tablet by mouth every other da y for 2 doses DIFLUCAN 100 MG ORAL TABLET 191065 FLUCONAZOLE Inactive CEFTIN 250 MG ORAL TABLET 1 tablet twice daily x 7 days CEFTIN 250 MG ORAL TABLET CEFUROXIME AXETIL Inactive CYMBALTA 30 MG ORAL CAPSULE DELAYED RELEASE PARTICLES 1 cap by mouth daily with 60mg CYMBALTA 30 MG ORAL CAPSULE DELAYED RELEASE PARTICLES 800185 DULOXETINE HCL Inactive CYMBALTA 60 MG ORAL CAPSULE DELAYED RELEASE PARTICLES Take 1 tablet by mouth daily CYMBALTA 60 MG ORAL CAPSULE DELAYED RELEA SE PARTICLES 661568 DULOXETINE HCL Inactive FOSAMAX 70 MG ORAL TABLET 1 po qweek. Take 30min prio r to first food/drink. Avoid lying down x 1 hour. FOSAMAX 70 MG ORAL TA BLET 703308 ALENDRONATE SODIUM Inactive DIFLUCAN 100 MG ORAL TABLET 1 tablet by mouth daily 19/08/26 DIFLUCAN 100 MG ORAL TABLET 591546 FLUCONAZOLE Inactive PREDNISONE 20 MG ORAL TABLET 1 tab twice daily for 3 d ay, then one daily for three days PREDNISONE 20 MG ORAL TABLET 052967 PREDNIS ONE Inactive PROAIR HFA 108 (90 BASE) MCG/ACT INHALATION AEROSOL SO LUTION 1 puff every 6 hours as needed PROAIR HFA 108 (90 B ASE) MCG/ACT INHALATION AEROSOL SOLUTION ALBUTEROL SULFATE Inactive MECLIZINE HCL 25 MG ORAL TABLET one tab po qday prn dizziness 20 17/09/06 MECLIZINE HCL 25 MG ORAL TABLET 858616 MECLIZINE HCL Inactive PREDNISONE 20 MG ORAL TABLET 1 tablet by mouth twice d aily for 3 days, then 1 tablet daily for 3 days PREDNISONE 20 MG ORAL TA BLET 492265 PREDNISONE Inactive DIFLUCAN 100 MG ORAL TABLET 1 tablet by mouth daily 20 20/06/06 DIFLUCAN 100 MG ORAL TABLET 183311 FLUCONAZOLE Inactive BACTRIM DS 800-160 MG ORAL TABLET 1 tab by mouth twice daily 201 03/03/23 BACTRIM DS 800-160 MG ORAL TABLET 19830105 TRIMETHOPRIM-SULFAMETHOXAZOLE Inactive ZITHROMAX 250 MG ORAL TABLET 2 po today, then 1 po q days 2-5 20 15/02/10 ZITHROMAX 250 MG ORAL TABLET 056094 AZITHROMYCIN [place] ctive BACTRIM DS 800-160 MG ORAL TABLET [...] 20 19/03/05 DIFLUCAN 100 MG ORAL TABLET 216017 FLUCONAZOLE Inactive BACTRIM DS 800-160 MG ORAL TABLET 1 tab by mouth twice daily 201 05/10/28 BACTRIM DS 800-160 MG ORAL TABLET 245315 TRIMETHOPRIM-SULFAMETHOXAZOLE Inactive AMOXICILLIN 500 MG ORAL CAPSULE 1 cap by mouth three times a day AMOXICILLIN 500 MG ORAL CAPSULE 178542 AMOXICILLIN Inactive ZITHROMAX 250 MG ORAL TABLET 2 po today, then 1 po q days 2-5 20 20/04/28 ZITHROMAX 250 MG ORAL TABLET 625203 AZITHROMYCIN [place] ctive DIFLUCAN 100 MG ORAL TABLET 1 tablet by mouth daily 20 20/05/01 DIFLUCAN 100 MG ORAL TABLET 670894 FLUCONAZOLE Inactive BACTRIM DS 800-160 MG ORAL TABLET 1 tab by mouth twice daily 201 06/09/02 BACTRIM DS 800-160 MG ORAL TABLET 806941 TRIMETHOPRIM-SULFAMETHOXAZOLE Inactive Advance Directives Directive Description Start Date PERMISSION TO SHARE DISCUSSED WITH PATIENT -- NO DECISION 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 DISCUSED WITH PATIENT -- FULL [...] sium - Chemistry sodium, serum 141 mmol/L 913-775 8837/01/26 carbon dioxide, venous blood 29.5 mmol/L 21.0-32 [...] dipstick Trace-lysed Negative sodium, serum 139 mmol/L 455-024 3623/11/07 carbon dioxide, venous blood 28.4 mmol/L 21.0-32 [...] mg/dL Encounters Code Encounter Date Provider Facility CPT-30220 [id number] Vst-Est Level IV 19:27:[address] Tesfaye Sherman MD [facility] CPT-88500 [id number] Vst-Est Level IV 10:41:41 C DT Tesfaye Sherman MD [facility] CPT-16710 [id number] Vst-Est Level III 09:40:56 CDT Tesfaye Sherman MD [facility] CPT-59311 Level 4 Est. Patient 22:18:12 CDT Tesfaye pearson MD [facility] CPT-35020 Level 4 Est. Patient 14:44:33 PILE DRIVING SETTER Tesfaye pearson MD [facility] CPT-39643 Level 4 Est. Patient 13:55:29 PILE DRIVING SETTER Tesfaye pearson MD [facility] CPT-36556 Level 4 Est. Patient 17:07:34 PILE DRIVING SETTER Tesfaye pearson MD [facility] CPT-30240 Level 4 Est. Patient 13:56:54 CDT Tesfaye pearson MD [facility] CPT-41975 Level 4 Est. Patient 13:24:25 CDT Chelsea sanz APRN [facility] CPT-88971 Level 4 Est. Patient 09:14:56 CDT Tesfaye pearson MD [facility] CPT-17239 Level 4 Est. Patient 18:40:25 PILE DRIVING SETTER Tesfaye pearson MD [facility]-78464 Level 4 Est. Patient 18:13:07 PILE DRIVING SETTER Tesfaye pearson MD [facility]-47303 Level 3 Est. Patient 10:46:32 CDT Rj cotto DO [facility]-47453 Level 4 Est. Patient 20:19:25 CDT Tesfaye pearson MD [facility]-43495 Level 3 Est. Patient 09:07:31 CDT Tesfaye pearson MD [facility]-36692 Level 4 Est. Patient 13:12:56 CDT Tesfaye pearson MD [facility]-64016 Level 4 Est. Patient 21:24:55 PILE DRIVING SETTER Tesfaye pearson MD [facility]-02398 Level 3 Est. Patient 13:45:04 PILE DRIVING SETTER Tesfaye pearson MD [facility] CPT-55557 Level 4 Est. Patient 13:50:45 CDT Tesfaye pearson MD [facility]-99734 Level 3 Est. Patient 10:16:10 CDT Tesfaye pearson MD [facility] CPT-37337 Level 3 Est. Patient 16:36:07 PILE DRIVING SETTER Kayla jameson MD [facility]-31159 Level 4 Est. Patient 16:00:14 PILE DRIVING SETTER Tesfaye pearson MD [facility]-96817 Level 4 Est. Patient 11:02:24 PILE DRIVING SETTER Tesfaye pearson MD [facility]-27316 Level 3 Est. Patient 20:21:43 PILE DRIVING SETTER Kayla jameson MD [facility]-48588 Level 3 Est. Patient 13:27:28 PILE DRIVING SETTER Kayla jameson MD [facility]-53905 Level 4 Est. Patient 15:57:17 PILE DRIVING SETTER Tesfaye pearson MD [facility] CPT-09857 Level 3 New Patient 13:25:47 CDT Tesfaye kidd MD [facility] CPT-25277 Level 3 New Patient 17:22:21 CDT Kayla angel MD [facility] Procedures Code Procedure Name Date Entry Date Standard Desc ription CPT-G0439 Subsequent Annual Wellness Exam 22:18:11 CDT CPT-61688 Bone Density - XRAY USE ONLY 11:43:58 CDT 2 CPT-34918 Bone Density - XRAY USE ONLY 10:05:16 CDT 2 CPT-01125 Prv Med New Pt 40-64 yrs 18:19:25 CDT 2016 CPT-99210 Foot, right, comp min 3V - XRAY USE ONLY 10:38:34 CDT CPT-G0439 Subsequent Annual Wellness Exam 13:55:04 CDT CPT-G0438 Initial Annual Wellness Exam 11:23:17 CD T CPT-J2930 Solu Medrol 125 mg (Methyl Prednisolone Sodium Succinate) 17:29:12 PILE DRIVING SETTER CPT-60999 Abx/Therapy Injection 17:29:11 PILE DRIVING SETTER CPT-J2930 Solu Medrol 125 mg (Methyl Prednisolone Sodium Succinate) 12:34:38 PILE DRIVING SETTER CPT-J3420 Vitamin B12 1000mcg (Cyanocobalamin) 09:12:55 CDT CPT-J3420 Vitamin B12 1000mcg (Cyanocobalamin) 16:28:06 PILE DRIVING SETTER CPT-12475 Venipuncture Draw Fee 08:39:53 CDT CPT-J3420 Vitamin B12 1000mcg (Cyanocobalamin) 08:46:22 CDT CPT-91752 Abx/Therapy Injection 08:46:22 CDT CPT-J3420 Vitamin B12 1000mcg (Cyanocobalamin) 08:41:26 CDT CPT-19462 Abx/Therapy Injection 08:41:26 CDT CPT-J3420 Vitamin B12 1000mcg (Cyanocobalamin) 08:57:15 CDT CPT-56905 Abx/Therapy Injection 08:57:15 CDT CPT-J3420 Vitamin B12 1000mcg (Cyanocobalamin) 10:59:03 CDT CPT-95949 Abx/Therapy Injection 10:59:03 CDT CPT-J3420 Vitamin B12 1000mcg (Cyanocobalamin) 15:05:39 CDT CPT-81481 Abx/Therapy Injection 15:05:39 CDT CPT-J3420 Vitamin B12 1000mcg (Cyanocobalamin) 13:50:45 CDT CPT-J3420 Vitamin B12 1000mcg (Cyanocobalamin) 08:48:55 CDT CPT-80778 Abx/Therapy Injection 08:48:55 CDT CPT-J3420 Vitamin B12 1000mcg (Cyanocobalamin) 09:14:54 CDT CPT-18277 Abx/Therapy Injection 09:14:54 CDT CPT-J3420 Vitamin B12 1000mcg (Cyanocobalamin) 09:06:06 CDT CPT-10533 Abx/Therapy Injection 09:06:06 CDT CPT-J3420 Vitamin B12 1000mcg (Cyanocobalamin) 09:49:14 CDT CPT-51391 Abx/Therapy Injection 09:49:14 CDT CPT-J3420 Vitamin B12 1000mcg (Cyanocobalamin) 09:10:30 PILE DRIVING SETTER CPT-18437 Abx/Therapy Injection 09:10:30 PILE DRIVING SETTER CPT-J3420 Vitamin B12 1000mcg (Cyanocobalamin) 09:11:07 PILE DRIVING SETTER CPT-40001 Abx/Therapy Injection 09:11:07 PILE DRIVING SETTER CPT-J3420 Vitamin B12 1000mcg (Cyanocobalamin) 09:57:03 PILE DRIVING SETTER CPT-56214 Abx/Therapy Injection 09:57:03 PILE DRIVING SETTER CPT-J3420 Vitamin B12 1000mcg (Cyanocobalamin) 09:23:21 PILE DRIVING SETTER CPT-57174 Abx/Therapy Injection 09:23:21 PILE DRIVING SETTER CPT-89767 Urine Dip (Floor Use Only) 20:21:44 PILE DRIVING SETTER 201 02/12/11 CPT-85735 UA Dip Auto (Floor Use Only) 10:04:39 PILE DRIVING SETTER 2 CPT-72058 Urine Dip (Floor Use Only) 13:27:28 PILE DRIVING SETTER 201 02/12/01 CPT-49728 Bladder Scan 13:27:28 PILE DRIVING SETTER CPT-10327 Abd single AP View 14:30:51 PILE DRIVING SETTER CPT-OV Office Visit 10:15:43 CDT CPT-02566 Urine Dip (Floor Use Only) 17:22:21 CDT 201 02/09/02 CPT-63286 Bladder Scan 17:22:21 CDT
--- OUTSIDE RECORDS SUMMARY | 2020-05-05 12:30 | XMS REPORT | Clinical Summary ---
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 MARIA ELENA PIPRAZOLE 58079921611 Active Tesfaye Sherman MD Active CYMBALTA 60 MG ORAL CAPSULE DELAYED RELEASE PARTICLES 1 cap by mouth daily for pain DULOXETINE HCL 45303831921 Active Tesfaye Owusu Active DIFLUCAN 100 MG ORAL TABLET 1 tablet by mouth daily 20 20/06/06 FLUCONAZOLE 65380741971 No Longer Active Tesfaye Sherman MD Acti ve PREDNISONE 20 MG ORAL TABLET 1 tablet by mouth twice d aily for 3 days, then 1 tablet daily for 3 days PREDNISONE 43213334699 No L onger Active Tesfaye Sherman MD Active DIFLUCAN 100 MG ORAL TABLET 1 tablet by mouth daily FLUCONAZOLE 69355416356 Active Tesfaye Sherman MD Active BACTRIM DS 800-160 MG ORAL TABLET 1 tab by mouth twice daily 201 06/09/02 TRIMETHOPRIM-SULFAMETHOXAZOLE 27432215026 No Longer Active Fer Dominguez Active DIFLUCAN 100 MG ORAL TABLET 1 tablet by mouth daily 20 20/05/01 FLUCONAZOLE 48921227518 No Longer Active Tesfaye Sherman MD Acti ve ZITHROMAX 250 MG ORAL TABLET 2 po today, then 1 po q days 2-5 20 20/04/28 AZITHROMYCIN 34464918656 No Longer Active Tesfaye Sherman MD Active MECLIZINE HCL 25 MG ORAL TABLET one tab po qday prn dizziness 20 17/09/06 MECLIZINE HCL 39683147523 No Longer Active Tesfaye Sherman MD Active PROAIR HFA 108 (90 BASE) MCG/ACT INHALATION AEROSOL SO LUTION 1 puff every 6 hours as needed ALBUTEROL SULFATE 26865318178 No Long er Active Tesfaye Sherman MD Active OXYCODONE-ACETAMINOPHEN 5-325 MG ORAL TABLET Take one tablet by mouth every 6 hours as needed. Use sparingly OXYCODONE-ACETAMINOPHEN 97915064035 Active Tesfaye Sherman MD Active PREDNISONE 20 MG ORAL TABLET 1 tab twice daily for 3 d ay, then one daily for three days PREDNISONE 46571382992 No Longer Active Tesfaye Sherman MD Active MECLIZINE HCL 25 MG ORAL TABLET one 4 times a day as needed for dizziness MECLIZINE HCL 72602129248 Active Tesfaye Shermna MD Active AMOXICILLIN 500 MG ORAL CAPSULE 1 cap by mouth three times a day AMOXICILLIN 47540795957 No Longer Active Laurence Dominguez Acti ve VENLAFAXINE HCL 75 MG ORAL TABLET 1 am 1/2 at noon VENLAFAXINE HCL 15309843216 Active Tesfaye Sherman MD Active DIFLUCAN 100 MG ORAL TABLET 1 tablet by mouth daily 20 19/08/26 FLUCONAZOLE 67691371926 No Longer Active Tesfaye Sherman MD Acti ve BACTRIM DS 800-160 MG ORAL TABLET 1 tab by mouth twice daily 201 05/10/28 TRIMETHOPRIM-SULFAMETHOXAZOLE 96575254851 No Longer Active A mirna Angelica Active FOSAMAX 70 MG ORAL TABLET 1 po qweek. Take 30min prio r to first food/drink. Avoid lying down x 1 hour. ALENDRONATE SODIUM 72685805 144 No Longer Active Laurence Lopezduyen Active REPHRESH PRO-B ORAL CAPSULE 1 tablet daily LACT OBACILLUS 11278613800 Active Edith Burch MD Active CYMBALTA 60 MG ORAL CAPSULE DELAYED RELEASE PARTICLES Take 1 tablet by mouth daily DULOXETINE HCL 72126038376 No Longer Active Edith Burch MD Active CYMBALTA 30 MG ORAL CAPSULE DELAYED RELEASE PARTICLES 1 cap by mouth daily with 60mg DULOXETINE HCL 24075661512 No Longer Active Jordan Burch MD Active FISH OIL 1000 MG ORAL CAPSULE DELAYED RELEASE 1 pill b y mouth daily for cholesterol OMEGA-3 FATTY ACIDS 23070764844 Active Cee Jaffe LPN Active RED YEAST RICE 600 MG ORAL CAPSULE 1 pill by mouth daily RED YEAST RICE EXTRACT 92117199119 Active Rosa Jaffe LPN Activ e DIFLUCAN 100 MG ORAL TABLET 1 tablet by mouth daily 19/03/05 FLUCONAZOLE 82103645811 No Longer Active Tesfaye Mcdonaldi ve BACTRIM DS 800-160 MG ORAL TABLET 1 tab by mouth twice daily 201 05/06/28 TRIMETHOPRIM-SULFAMETHOXAZOLE 98057476078 No Longer Active Umer Sherman MD Active BACTRIM DS 800-160 MG ORAL TABLET 1 tab by mouth twice daily 201 05/04/15 TRIMETHOPRIM-SULFAMETHOXAZOLE 94288738728 No Longer Active Umer Sherman MD Active DIFLUCAN 150 MG ORAL TABLET 1 tablet by mouth daily 20 18/09/20 FLUCONAZOLE 39060570698 No Longer Active Tesfaye Sherman MD Acti ve BACTRIM DS 800-160 MG ORAL TABLET 1 tab by mouth twice daily 201 04/13/17 TRIMETHOPRIM-SULFAMETHOXAZOLE 22786898518 No Longer Active Umer Sherman MD Active ROPINIROLE HCL 0.25 MG ORAL TABLET 1 TAB PO Q HS ROPINIROLE HCL 64648289950 Active Tesfaye Sherman MD Active CEFTIN 250 MG ORAL TABLET 1 tablet twice daily x 7 days CEFUROXIME AXETIL 24972539402 No Longer Active Tesfaye Sherman MD Active DIFLUCAN 100 MG ORAL TABLET 1 tablet by mouth every other da y for 2 doses FLUCONAZOLE 93135870260 No Longer Active Tesfaye barron MD Active DIFLUCAN 100 MG ORAL TABLET 1 tablet by mouth daily X 3 DAYS 201 04/09/01 FLUCONAZOLE 92558705319 No Longer Active Rj Lyons tive MIRTAZAPINE 15 MG ORAL TABLET 1/2 tab by mouth at bedtime. 03/13 MIRTAZAPINE 64370126642 No Longer Active Tesfaye Sherman MD Active BACTRIM DS 800-160 MG ORAL TABLET 1 tab by mouth twice daily 201 04/09/01 TRIMETHOPRIM-SULFAMETHOXAZOLE 24586327392 No Longer Active Umer Sherman MD Active PRAMIPEXOLE DIHYDROCHLORIDE 0.125 MG ORAL TABLET take 1 tablet po qhs for restless leg syndrome. PRAMIPEXOLE DIHYDROCHLORI DE 81647095954 No Longer Active Tesfaye Sherman MD Active MAGNESIUM 400 MG ORAL TABLET 1 tab po daily MAGNE SIUM 55875944477 Active Chelsea Cardenas APRN Active SUDAFED 24 HOUR 240 MG ORAL TABLET EXTENDED RELEASE 24 HOUR 1 tab po daily PSEUDOEPHEDRINE HCL 89499625641 Active Chelsea Cardenas APRN Active CETIRIZINE HCL 5 MG ORAL TABLET Take 1 tablet by mouth daily CETIRIZINE HCL 99145271634 No Longer Active Chelsea Cardenas APRN Activ e TRIMETHOPRIM 100 MG ORAL TABLET 1/2 qd TRIM ETHOPRIM 63757892113 No Longer Active Chelsea Cardenas APRN Active BACTRIM DS 800-160 MG ORAL TABLET 1 tab by mouth twice daily 201 04/04/11 TRIMETHOPRIM-SULFAMETHOXAZOLE 42135838408 No Longer Active Umer Sherman MD Active BACTRIM DS 800-160 MG ORAL TABLET 1 tab by mouth twice daily X 10 DAYS TRIMETHOPRIM-SULFAMETHOXAZOLE 57016291562 No Longer Active Tesfaye Sherman MD Active AMOXICILLIN 500 MG ORAL CAPSULE 1 cap by mouth three times a day AMOXICILLIN 55163859958 No Longer Active Adriana Arredondo Active B-12 1000 MCG ORAL LOZENGE 1 tab po daily CYANO COBALAMIN 50528569575 Active Tesfaye Sherman MD Active VITAMIN D3 2000 UNIT ORAL TABLET 1 daily, for vitamin D deficien cy CHOLECALCIFEROL 64091291177 No Longer Active Tesfaye Sherman MD Active TIZANIDINE HCL 2 MG ORAL TABLET take 1-2 tablet by [facility] every day at bedtime at 9pm PRN TIZANIDINE HCL 77440946619 Active Tesfaye hewitt MD Active ZITHROMAX 250 MG ORAL TABLET 2 po today, then 1 po q days 2-5 20 15/02/10 AZITHROMYCIN 09378445017 No Longer Active Tesfaye Sherman MD Active BACTRIM DS 800-160 MG ORAL TABLET 1 tab by mouth twice daily 201 03/03/23 TRIMETHOPRIM-SULFAMETHOXAZOLE 21260698714 No Longer Active Umer Sherman MD Active PRELIEF 340 (65-50) MG (CA-P) ORAL TABLET CALCIUM GLYCEROPHOSPHATE 72990598159 Active Tesfaye Sherman MD Acti ve [facility] NIACIN FLUSH FREE 400-100 MG ORAL CAPSULE 1 daily NIACIN-INOSITOL 22211473213 Active Kayla Cooper MD Activ e DIFLUCAN 150 MG ORAL TABLET 1 qd FLUCONAZOL E 61231043066 No Longer Active Kayla Cooper MD Active FLUTICASONE PROPIONATE 50 MCG/ACT NASAL SUSPENSION 1 spray each nostril twice daily FLUTICASONE PROPIONATE 84740376174 Active D patricia Sherman MD Active LOVASTATIN 20 MG ORAL TABLET Take 1 tablet by mouth daily LOVASTATIN 88609042584 No Longer Active Tesfaye Sherman MD Acti ve MELOXICAM 7.5 MG ORAL TABLET 1 tablet by mouth daily 2 MELOXICAM 42866317456 No Longer Active Tesfaye Sherman MD Acti ve GABAPENTIN 300 MG ORAL CAPSULE Take two tablets by mouth every e vening GABAPENTIN 55401373363 No Longer Active Edith Burch MD A ctive CLONAZEPAM 0.5 MG ORAL TABLET Take one tablet in the m orning and 1.5 tablet at 7pm CLONAZEPAM 73233313714 Active Kayla Cooper MD Active BACLOFEN 10 MG ORAL TABLET Take one tablet by mouth three times a d ay BACLOFEN 92936824032 Active Kayla Cooper MD Active GABAPENTIN 300 MG ORAL CAPSULE Take two tablets by mouth every e vening GABAPENTIN 300 MG ORAL CAPSULE 330479 GABAPENTIN I nactive MELOXICAM 7.5 MG ORAL TABLET 1 tablet by mouth daily 2 MELOXICAM 7.5 MG ORAL TABLET 253546 MELOXICAM Inactive LOVASTATIN 20 MG ORAL TABLET Take 1 tablet by mouth daily LOVASTATIN 20 MG ORAL TABLET 922396 LOVASTATIN Inactive DIFLUCAN 150 MG ORAL TABLET 1 qd DIFLUCAN 150 MG ORAL TABLET 333211 FLUCONAZOLE Inactive VITAMIN D3 2000 UNIT ORAL TABLET 1 daily, for vitamin D deficien cy VITAMIN D3 2000 UNIT ORAL TABLET CHOLECALCIFEROL Inactive AMOXICILLIN 500 MG ORAL CAPSULE 1 cap by mouth three times a day AMOXICILLIN 500 MG ORAL CAPSULE 310379 AMOXICILLIN Inactive BACTRIM DS 800-160 MG ORAL TABLET 1 tab by mouth twice daily X 10 DAYS BACTRIM DS 800-160 MG ORAL TABLET 19830105 TRIMETHOPRIM-SULFAMETHOXAZOLE Inactive TRIMETHOPRIM 100 MG ORAL TABLET 1/2 qd 7 TRIMETHOPRIM 100 MG ORAL TABLET 19830102 TRIMETHOPRIM Inactive CETIRIZINE HCL 5 MG ORAL TABLET Take 1 tablet by mouth daily CETIRIZINE HCL 5 MG ORAL TABLET 6096436 CETIRIZINE HCL Inactive PRAMIPEXOLE DIHYDROCHLORIDE 0.125 MG ORAL TABLET take 1 tablet po qhs for restless leg syndrome. PRAMIPEXOLE DIHYD ROCHLORIDE 0.125 MG ORAL TABLET 594457 PRAMIPEXOLE DIHYDROCHLORIDE Inactive MIRTAZAPINE 15 MG ORAL TABLET 1/2 tab by mouth at bedtime. 03/13 MIRTAZAPINE 15 MG ORAL TABLET 562487 MIRTAZAPINE In active DIFLUCAN 100 MG ORAL TABLET 1 tablet by mouth daily X 3 DAYS 201 04/09/01 DIFLUCAN 100 MG ORAL TABLET 045981 FLUCONAZOLE Inac tive DIFLUCAN 100 MG ORAL TABLET 1 tablet by mouth every other da y for 2 doses DIFLUCAN 100 MG ORAL TABLET 246537 FLUCONAZOLE Inactive CEFTIN 250 MG ORAL TABLET 1 tablet twice daily x 7 days CEFTIN 250 MG ORAL TABLET CEFUROXIME AXETIL Inactive CYMBALTA 30 MG ORAL CAPSULE DELAYED RELEASE PARTICLES 1 cap by mouth daily with 60mg CYMBALTA 30 MG ORAL CAPSULE DELAYED RELEASE PARTICLES 156169 DULOXETINE HCL Inactive CYMBALTA 60 MG ORAL CAPSULE DELAYED RELEASE PARTICLES Take 1 tablet by mouth daily CYMBALTA 60 MG ORAL CAPSULE DELAYED RELEA SE PARTICLES 944069 DULOXETINE HCL Inactive FOSAMAX 70 MG ORAL TABLET 1 po qweek. Take 30min prio r to first food/drink. Avoid lying down x 1 hour. FOSAMAX 70 MG ORAL TA BLET 428478 ALENDRONATE SODIUM Inactive DIFLUCAN 100 MG ORAL TABLET 1 tablet by mouth daily 19/08/26 DIFLUCAN 100 MG ORAL TABLET 329271 FLUCONAZOLE Inactive PREDNISONE 20 MG ORAL TABLET 1 tab twice daily for 3 d ay, then one daily for three days PREDNISONE 20 MG ORAL TABLET 096612 PREDNIS ONE Inactive PROAIR HFA 108 (90 BASE) MCG/ACT INHALATION AEROSOL SO LUTION 1 puff every 6 hours as needed PROAIR HFA 108 (90 B ASE) MCG/ACT INHALATION AEROSOL SOLUTION ALBUTEROL SULFATE Inactive MECLIZINE HCL 25 MG ORAL TABLET one tab po qday prn dizziness 20 17/09/06 MECLIZINE HCL 25 MG ORAL TABLET 376666 MECLIZINE HCL Inactive PREDNISONE 20 MG ORAL TABLET 1 tablet by mouth twice d aily for 3 days, then 1 tablet daily for 3 days PREDNISONE 20 MG ORAL TA BLET 457063 PREDNISONE Inactive DIFLUCAN 100 MG ORAL TABLET 1 tablet by mouth daily 20 20/06/06 DIFLUCAN 100 MG ORAL TABLET 123638 FLUCONAZOLE Inactive BACTRIM DS 800-160 MG ORAL TABLET 1 tab by mouth twice daily 201 03/03/23 BACTRIM DS 800-160 MG ORAL TABLET 19830105 TRIMETHOPRIM-SULFAMETHOXAZOLE Inactive ZITHROMAX 250 MG ORAL TABLET 2 po today, then 1 po q days 2-5 20 15/02/10 ZITHROMAX 250 MG ORAL TABLET 224590 AZITHROMYCIN [place] ctive BACTRIM DS 800-160 MG ORAL TABLET [...] 20 19/03/05 DIFLUCAN 100 MG ORAL TABLET 215389 FLUCONAZOLE Inactive BACTRIM DS 800-160 MG ORAL TABLET 1 tab by mouth twice daily 201 05/10/28 BACTRIM DS 800-160 MG ORAL TABLET 860960 TRIMETHOPRIM-SULFAMETHOXAZOLE Inactive AMOXICILLIN 500 MG ORAL CAPSULE 1 cap by mouth three times a day AMOXICILLIN 500 MG ORAL CAPSULE 320222 AMOXICILLIN Inactive ZITHROMAX 250 MG ORAL TABLET 2 po today, then 1 po q days 2-5 20 20/04/28 ZITHROMAX 250 MG ORAL TABLET 267608 AZITHROMYCIN Mayela ctive DIFLUCAN 100 MG ORAL TABLET 1 tablet by mouth daily 20 20/05/01 DIFLUCAN 100 MG ORAL TABLET 407655 FLUCONAZOLE Inactive BACTRIM DS 800-160 MG ORAL TABLET 1 tab by mouth twice daily 201 06/09/02 BACTRIM DS 800-160 MG ORAL TABLET 044560 TRIMETHOPRIM-SULFAMETHOXAZOLE Inactive Advance Directives Directive Description Start Date PERMISSION TO SHARE DISCUSSED WITH PATIENT -- NO DECISION MADE DURABLE POWER OF PARAPROFESSIONAL EDUCATION ASSISTANT FOR HEALTHCARE DISCUSED WITH PATIENT -- [...] sium - Chemistry sodium, serum 141 mmol/L 744-917 7302/01/26 carbon dioxide, venous blood 29.5 mmol/L 21.0-32 [...] bilirubin, urine Negative Negative pH, urine, semiquantitative 7.0 5.0-8.5 specific gravity, urine 1.015 1.000-1.030 appearance, urine Clear Clear urine color Yellow Colorless;Lightyellow;St raw;Yellow Lab Report: UADIP W/MICRO, AUTO, Comp. M etabolic Panel, CBC - Chemistry calcium, serum 9.1 mg/dL 8.5-10.1 bilirubin, serum, total 0.50 mg/dL 0.00-1.00 protein, total urine random Negative mg/dL Negative RBC, urine, dipstick Trace-lysed Negative sodium, serum 139 mmol/L 162-751 5683/11/07 carbon dioxide, venous blood 28.4 mmol/L 21.0-32 .0 potassium, serum 3.9 mmol/L 3.5-5.2 chloride, serum 101 mmol/L 98-107 blood glucose 99 mg/dL 65-95 urea nitrogen, blood 13 mg/dL 7-18 creatinine, serum 0.65 mg/dL 0.60-1.30 Estimated Glomerular Filtration Rate (calc) 100 (?) mL/min/1.73m2 = OR > 60 mL/min alanine aminotransferase (SGPT), serum 21 U/L 12-78 aspartate aminotransferase (SGOT), serum 16 U/L 15-37 Lab Report: UADIP W/MICRO, AUTO, Comp. M [...] mg/dL Encounters Code Encounter Date Provider Facility CPT-04348 [id number] Vst-Est Level IV 19:27:[address] Tesfaye Sherman MD [facility] CPT-07033 [id number] Vst-Est Level IV 10:41:41 C DT Tesfaye Sherman MD [facility] CPT-67103 [id number] Vst-Est Level III 09:40:56 CDT Tesfaye Sherman MD [facility] CPT-36655 Level 4 Est. Patient 22:18:12 CDT Tesfaye pearson MD [facility] CPT-87398 Level 4 Est. 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 Patient 13:55:29 CAR INSPECTION AND REPAIR MANAGER Tesfaye pearson MD [facility] CPT-05051 Level 4 Est. Patient 17:07:34 CAR INSPECTION AND REPAIR MANAGER Tesfaye pearson MD [facility] CPT-28113 Level 4 Est. Patient 13:56:54 CDT Tesfaye pearson MD [facility] CPT-63557 Level 4 Est. Patient 13:24:25 CDT Chelsea sanz APRN [facility] CPT-17788 Level 4 Est. Patient 09:14:56 CDT Tesfaye pearson MD [facility] CPT-03782 Level 4 Est. Patient 18:40:25 CAR INSPECTION AND REPAIR MANAGER Tesfaye pearson MD [facility]-90717 Level 4 Est. Patient 18:13:07 CAR INSPECTION AND REPAIR MANAGER Tesfaye pearson MD [facility]-02374 Level 3 Est. Patient 10:46:32 CDT Rj cotto DO [facility]-04382 Level 4 Est. Patient 20:19:25 CDT Tesfaye pearson MD [facility]-58623 Level 3 Est. Patient 09:07:31 CDT Tesfaye pearson MD [facility]-96978 Level 4 Est. Patient 13:12:56 CDT Tesfaye pearson MD [facility]-69507 Level 4 Est. Patient 21:24:55 CAR INSPECTION AND REPAIR MANAGER Tesfaye pearson MD [facility]-97314 Level 3 Est. Patient 13:45:04 CAR INSPECTION AND REPAIR MANAGER Tesfaye pearson MD [facility] CPT-21689 Level 4 Est. Patient 13:50:45 CDT Tesfaye pearson MD [facility]-86867 Level 3 Est. Patient 10:16:10 CDT Tesfaye pearson MD [facility] CPT-49770 Level 3 Est. Patient 16:36:07 CAR INSPECTION AND REPAIR MANAGER Kayla jameson MD [facility]-39906 Level 4 Est. Patient 16:00:14 CAR INSPECTION AND REPAIR MANAGER Tesfaye pearson MD [facility]-46597 Level 4 Est. Patient 11:02:24 CAR INSPECTION AND REPAIR MANAGER Tesfaye pearson MD [facility]-43328 Level 3 Est. Patient 20:21:43 CAR INSPECTION AND REPAIR MANAGER Kayla jameson MD [facility]-37925 Level 3 Est. Patient 13:27:28 CAR INSPECTION AND REPAIR MANAGER Kayla jameson MD [facility]-97877 Level 4 Est. Patient 15:57:17 CAR INSPECTION AND REPAIR MANAGER Tesfaye pearson MD [facility] CPT-84316 Level 3 New Patient 13:25:47 CDT Tesfaye kidd MD [facility] CPT-97059 Level 3 New Patient 17:22:21 CDT Kayla angel MD [facility] Procedures Code Procedure Name Date Entry Date Standard Desc ription CPT-G0439 Subsequent Annual Wellness Exam 22:18:11 CDT CPT-32750 Bone Density - XRAY USE ONLY 11:43:58 CDT 2 CPT-76496 Bone Density - XRAY USE ONLY 10:05:16 CDT 2 CPT-74021 Prv Med New Pt 40-64 yrs 18:19:25 CDT 2016 CPT-78000 Foot, right, comp min 3V - XRAY USE ONLY 10:38:34 CDT CPT-G0439 Subsequent Annual Wellness Exam 13:55:04 CDT CPT-G0438 Initial Annual Wellness Exam 11:23:17 CD T CPT-J2930 Solu Medrol 125 mg (Methyl Prednisolone Sodium Succinate) 17:29:12 CAR INSPECTION AND REPAIR MANAGER CPT-45307 Abx/Therapy Injection 17:29:11 CAR INSPECTION AND REPAIR MANAGER CPT-J2930 Solu Medrol 125 mg (Methyl Prednisolone Sodium Succinate) 12:34:38 CAR INSPECTION AND REPAIR MANAGER CPT-J3420 Vitamin B12 1000mcg (Cyanocobalamin) 09:12:55 CDT CPT-J3420 Vitamin B12 1000mcg (Cyanocobalamin) 16:28:06 CAR INSPECTION AND REPAIR MANAGER CPT-21981 Venipuncture Draw Fee 08:39:53 CDT CPT-J3420 Vitamin B12 1000mcg (Cyanocobalamin) 08:46:22 CDT CPT-64468 Abx/Therapy Injection 08:46:22 CDT CPT-J3420 Vitamin B12 1000mcg (Cyanocobalamin) 08:41:26 CDT CPT-61683 Abx/Therapy Injection 08:41:26 CDT CPT-J3420 Vitamin B12 1000mcg (Cyanocobalamin) 08:57:15 CDT CPT-75265 Abx/Therapy Injection 08:57:15 CDT CPT-J3420 Vitamin B12 1000mcg (Cyanocobalamin) 10:59:03 CDT CPT-66759 Abx/Therapy Injection 10:59:03 CDT CPT-J3420 Vitamin B12 1000mcg (Cyanocobalamin) 15:05:39 CDT CPT-31961 Abx/Therapy Injection 15:05:39 CDT CPT-J3420 Vitamin B12 1000mcg (Cyanocobalamin) 13:50:45 CDT CPT-J3420 Vitamin B12 1000mcg (Cyanocobalamin) 08:48:55 CDT CPT-82279 Abx/Therapy Injection 08:48:55 CDT CPT-J3420 Vitamin B12 1000mcg (Cyanocobalamin) 09:14:54 CDT CPT-26003 Abx/Therapy Injection 09:14:54 CDT CPT-J3420 Vitamin B12 1000mcg (Cyanocobalamin) 09:06:06 CDT CPT-39258 Abx/Therapy Injection 09:06:06 CDT CPT-J3420 Vitamin B12 1000mcg (Cyanocobalamin) 09:49:14 CDT CPT-87628 Abx/Therapy Injection 09:49:14 CDT CPT-J3420 Vitamin B12 1000mcg (Cyanocobalamin) 09:10:30 CAR INSPECTION AND REPAIR MANAGER CPT-81213 Abx/Therapy Injection 09:10:30 CAR INSPECTION AND REPAIR MANAGER CPT-J3420 Vitamin B12 1000mcg (Cyanocobalamin) 09:11:07 CAR INSPECTION AND REPAIR MANAGER CPT-45919 Abx/Therapy Injection 09:11:07 CAR INSPECTION AND REPAIR MANAGER CPT-J3420 Vitamin B12 1000mcg (Cyanocobalamin) 09:57:03 CAR INSPECTION AND REPAIR MANAGER CPT-45681 Abx/Therapy Injection 09:57:03 CAR INSPECTION AND REPAIR MANAGER CPT-J3420 Vitamin B12 1000mcg (Cyanocobalamin) 09:23:21 CAR INSPECTION AND REPAIR MANAGER CPT-74271 Abx/Therapy Injection 09:23:21 CAR INSPECTION AND REPAIR MANAGER CPT-68513 Urine Dip (Floor Use Only) 20:21:44 CAR INSPECTION AND REPAIR MANAGER 201 02/12/11 CPT-71741 UA Dip Auto (Floor Use Only) 10:04:39 CAR INSPECTION AND REPAIR MANAGER 2 CPT-96991 Urine Dip (Floor Use Only) 13:27:28 CAR INSPECTION AND REPAIR MANAGER 201 02/12/01 CPT-35390 Bladder Scan 13:27:28 CAR INSPECTION AND REPAIR MANAGER CPT-57251 Abd single AP View 14:30:51 CAR INSPECTION AND REPAIR MANAGER CPT-OV Office Visit 10:15:43 CDT CPT-74292 Urine Dip (Floor Use Only) 17:22:21 CDT 201 02/09/02 CPT-97295 Bladder Scan 17:22:21 CDT
--- OUTSIDE RECORDS SUMMARY | 2020-05-05 12:30 | XMS REPORT | Clinical Summary ---
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 MARIA ELENA PIPRAZOLE 81620232924 Active Tesfaye Sherman MD Active CYMBALTA 60 MG ORAL CAPSULE DELAYED RELEASE PARTICLES 1 cap by mouth daily for pain DULOXETINE HCL 81231228253 Active Tesfaye Owusu Active DIFLUCAN 100 MG ORAL TABLET 1 tablet by mouth daily 20 20/06/06 FLUCONAZOLE 47495663538 No Longer Active Tesfaye Sherman MD Acti ve PREDNISONE 20 MG ORAL TABLET 1 tablet by mouth twice d aily for 3 days, then 1 tablet daily for 3 days PREDNISONE 94230811885 No L onger Active Tesfaye Sherman MD Active DIFLUCAN 100 MG ORAL TABLET 1 tablet by mouth daily FLUCONAZOLE 06448832002 Active Tesfaye Sherman MD Active BACTRIM DS 800-160 MG ORAL TABLET 1 tab by mouth twice daily 201 06/09/02 TRIMETHOPRIM-SULFAMETHOXAZOLE 82364541311 No Longer Active Fer Dominguez Active DIFLUCAN 100 MG ORAL TABLET 1 tablet by mouth daily 20 20/05/01 FLUCONAZOLE 41452189358 No Longer Active Tesfaye Sherman MD Acti ve ZITHROMAX 250 MG ORAL TABLET 2 po today, then 1 po q days 2-5 20 20/04/28 AZITHROMYCIN 53983648696 No Longer Active Tesfaye Sherman MD Active MECLIZINE HCL 25 MG ORAL TABLET one tab po qday prn dizziness 20 17/09/06 MECLIZINE HCL 13289599465 No Longer Active Tesfaye Sherman MD Active PROAIR HFA 108 (90 BASE) MCG/ACT INHALATION AEROSOL SO LUTION 1 puff every 6 hours as needed ALBUTEROL SULFATE 01091204915 No Long er Active Tesfaye Sherman MD Active OXYCODONE-ACETAMINOPHEN 5-325 MG ORAL TABLET Take one tablet by mouth every 6 hours as needed. Use sparingly OXYCODONE-ACETAMINOPHEN 52700311939 Active Tesfaye Sherman MD Active PREDNISONE 20 MG ORAL TABLET 1 tab twice daily for 3 d ay, then one daily for three days PREDNISONE 04923607255 No Longer Active Tesfaye Sherman MD Active MECLIZINE HCL 25 MG ORAL TABLET one 4 times a day as needed for dizziness MECLIZINE HCL 33812679193 Active Tesfaye Sherman MD Active AMOXICILLIN 500 MG ORAL CAPSULE 1 cap by mouth three times a day AMOXICILLIN 98131630035 No Longer Active Laurence Dominguez Acti ve VENLAFAXINE HCL 75 MG ORAL TABLET 1 am 1/2 at noon VENLAFAXINE HCL 16499965907 Active Tesfaye Sherman MD Active DIFLUCAN 100 MG ORAL TABLET 1 tablet by mouth daily 20 19/08/26 FLUCONAZOLE 02480106040 No Longer Active Tesfaye Sherman MD Acti ve BACTRIM DS 800-160 MG ORAL TABLET 1 tab by mouth twice daily 201 05/10/28 TRIMETHOPRIM-SULFAMETHOXAZOLE 99477118122 No Longer Active A mirna Angelica Active FOSAMAX 70 MG ORAL TABLET 1 po qweek. Take 30min prio r to first food/drink. Avoid lying down x 1 hour. ALENDRONATE SODIUM 47296617 144 No Longer Active Laurence Lopezduyen Active REPHRESH PRO-B ORAL CAPSULE 1 tablet daily LACT OBACILLUS 19974812108 Active Edith Burch MD Active CYMBALTA 60 MG ORAL CAPSULE DELAYED RELEASE PARTICLES Take 1 tablet by mouth daily DULOXETINE HCL 14330960931 No Longer Active Edith Burch MD Active CYMBALTA 30 MG ORAL CAPSULE DELAYED RELEASE PARTICLES 1 cap by mouth daily with 60mg DULOXETINE HCL 30915943968 No Longer Active Jordan Burch MD Active FISH OIL 1000 MG ORAL CAPSULE DELAYED RELEASE 1 pill b y mouth daily for cholesterol OMEGA-3 FATTY ACIDS 79353298652 Active Cee Jaffe LPN Active RED YEAST RICE 600 MG ORAL CAPSULE 1 pill by mouth daily RED YEAST RICE EXTRACT 13518124257 Active Rosa Jaffe LPN Activ e DIFLUCAN 100 MG ORAL TABLET 1 tablet by mouth daily 19/03/05 FLUCONAZOLE 82034471753 No Longer Active Tesfaye Mcdonaldi ve BACTRIM DS 800-160 MG ORAL TABLET 1 tab by mouth twice daily 201 05/06/28 TRIMETHOPRIM-SULFAMETHOXAZOLE 61357576751 No Longer Active Umer Sherman MD Active BACTRIM DS 800-160 MG ORAL TABLET 1 tab by mouth twice daily 201 05/04/15 TRIMETHOPRIM-SULFAMETHOXAZOLE 85782324698 No Longer Active Umer Sherman MD Active DIFLUCAN 150 MG ORAL TABLET 1 tablet by mouth daily 20 18/09/20 FLUCONAZOLE 55817481813 No Longer Active Tesfaye Sherman MD Acti ve BACTRIM DS 800-160 MG ORAL TABLET 1 tab by mouth twice daily 201 04/13/17 TRIMETHOPRIM-SULFAMETHOXAZOLE 88977526375 No Longer Active Umer Sherman MD Active ROPINIROLE HCL 0.25 MG ORAL TABLET 1 TAB PO Q HS ROPINIROLE HCL 15071120259 Active Tesfaye Sherman MD Active CEFTIN 250 MG ORAL TABLET 1 tablet twice daily x 7 days CEFUROXIME AXETIL 30842131526 No Longer Active Tesfaye Sherman MD Active DIFLUCAN 100 MG ORAL TABLET 1 tablet by mouth every other da y for 2 doses FLUCONAZOLE 44962732231 No Longer Active Tesfaye barron MD Active DIFLUCAN 100 MG ORAL TABLET 1 tablet by mouth daily X 3 DAYS 201 04/09/01 FLUCONAZOLE 44392185387 No Longer Active Rj Lyons tive MIRTAZAPINE 15 MG ORAL TABLET 1/2 tab by mouth at bedtime. 03/13 MIRTAZAPINE 25031444681 No Longer Active Tesfaye Sherman MD Active BACTRIM DS 800-160 MG ORAL TABLET 1 tab by mouth twice daily 201 04/09/01 TRIMETHOPRIM-SULFAMETHOXAZOLE 03970839747 No Longer Active Umer Sherman MD Active PRAMIPEXOLE DIHYDROCHLORIDE 0.125 MG ORAL TABLET take 1 tablet po qhs for restless leg syndrome. PRAMIPEXOLE DIHYDROCHLORI DE 25700517138 No Longer Active Tesfaye Sherman MD Active MAGNESIUM 400 MG ORAL TABLET 1 tab po daily MAGNE SIUM 98018056912 Active Chelsea Cardenas APRN Active SUDAFED 24 HOUR 240 MG ORAL TABLET EXTENDED RELEASE 24 HOUR 1 tab po daily PSEUDOEPHEDRINE HCL 65480817710 Active Chelsea Cardenas APRN Active CETIRIZINE HCL 5 MG ORAL TABLET Take 1 tablet by mouth daily CETIRIZINE HCL 66014842025 No Longer Active Chelsea Cardenas APRN Activ e TRIMETHOPRIM 100 MG ORAL TABLET 1/2 qd TRIM ETHOPRIM 71491787590 No Longer Active Chelsea Cardenas APRN Active BACTRIM DS 800-160 MG ORAL TABLET 1 tab by mouth twice daily 201 04/04/11 TRIMETHOPRIM-SULFAMETHOXAZOLE 22238814969 No Longer Active Umer Sherman MD Active BACTRIM DS 800-160 MG ORAL TABLET 1 tab by mouth twice daily X 10 DAYS TRIMETHOPRIM-SULFAMETHOXAZOLE 58016694154 No Longer Active Tesfaye Sherman MD Active AMOXICILLIN 500 MG ORAL CAPSULE 1 cap by mouth three times a day AMOXICILLIN 90026865612 No Longer Active Adriana Arredondo Active B-12 1000 MCG ORAL LOZENGE 1 tab po daily CYANO COBALAMIN 04956458191 Active Tesfaye Sherman MD Active VITAMIN D3 2000 UNIT ORAL TABLET 1 daily, for vitamin D deficien cy CHOLECALCIFEROL 31465059306 No Longer Active Tesfaye Sherman MD Active TIZANIDINE HCL 2 MG ORAL TABLET take 1-2 tablet by [facility] every day at bedtime at 9pm PRN TIZANIDINE HCL 00098443191 Active Tesfaye hewitt MD Active ZITHROMAX 250 MG ORAL TABLET 2 po today, then 1 po q days 2-5 20 15/02/10 AZITHROMYCIN 33916747264 No Longer Active Tesfaye Sherman MD Active BACTRIM DS 800-160 MG ORAL TABLET 1 tab by mouth twice daily 201 03/03/23 TRIMETHOPRIM-SULFAMETHOXAZOLE 55008446455 No Longer Active Umer Sherman MD Active PRELIEF 340 (65-50) MG (CA-P) ORAL TABLET CALCIUM GLYCEROPHOSPHATE 27477245430 Active Tesfaye Sherman MD Acti ve [facility] NIACIN FLUSH FREE 400-100 MG ORAL CAPSULE 1 daily NIACIN-INOSITOL 35472698783 Active Kayla Cooper MD Activ e DIFLUCAN 150 MG ORAL TABLET 1 qd FLUCONAZOL E 33524278370 No Longer Active Kayla Cooper MD Active FLUTICASONE PROPIONATE 50 MCG/ACT NASAL SUSPENSION 1 spray each nostril twice daily FLUTICASONE PROPIONATE 60522289109 Active D patricia Sherman MD Active LOVASTATIN 20 MG ORAL TABLET Take 1 tablet by mouth daily LOVASTATIN 24561628000 No Longer Active Tesfaye Sherman MD Acti ve MELOXICAM 7.5 MG ORAL TABLET 1 tablet by mouth daily 2 MELOXICAM 39620168704 No Longer Active Tesfaye Sherman MD Acti ve GABAPENTIN 300 MG ORAL CAPSULE Take two tablets by mouth every e vening GABAPENTIN 17886733193 No Longer Active Edith Burch MD A ctive CLONAZEPAM 0.5 MG ORAL TABLET Take one tablet in the m orning and 1.5 tablet at 7pm CLONAZEPAM 81995493422 Active Kayla Cooper MD Active BACLOFEN 10 MG ORAL TABLET Take one tablet by mouth three times a d ay BACLOFEN 12504412640 Active Kayla Cooper MD Active GABAPENTIN 300 MG ORAL CAPSULE Take two tablets by mouth every e vening GABAPENTIN 300 MG ORAL CAPSULE 735735 GABAPENTIN I nactive MELOXICAM 7.5 MG ORAL TABLET 1 tablet by mouth daily 2 MELOXICAM 7.5 MG ORAL TABLET 907298 MELOXICAM Inactive LOVASTATIN 20 MG ORAL TABLET Take 1 tablet by mouth daily LOVASTATIN 20 MG ORAL TABLET 935174 LOVASTATIN Inactive DIFLUCAN 150 MG ORAL TABLET 1 qd DIFLUCAN 150 MG ORAL TABLET 915732 FLUCONAZOLE Inactive VITAMIN D3 2000 UNIT ORAL TABLET 1 daily, for vitamin D deficien cy VITAMIN D3 2000 UNIT ORAL TABLET CHOLECALCIFEROL Inactive AMOXICILLIN 500 MG ORAL CAPSULE 1 cap by mouth three times a day AMOXICILLIN 500 MG ORAL CAPSULE 658522 AMOXICILLIN Inactive BACTRIM DS 800-160 MG ORAL TABLET 1 tab by mouth twice daily X 10 DAYS BACTRIM DS 800-160 MG ORAL TABLET 19830105 TRIMETHOPRIM-SULFAMETHOXAZOLE Inactive TRIMETHOPRIM 100 MG ORAL TABLET 1/2 qd 7 TRIMETHOPRIM 100 MG ORAL TABLET 19830102 TRIMETHOPRIM Inactive CETIRIZINE HCL 5 MG ORAL TABLET Take 1 tablet by mouth daily CETIRIZINE HCL 5 MG ORAL TABLET 2224874 CETIRIZINE HCL Inactive PRAMIPEXOLE DIHYDROCHLORIDE 0.125 MG ORAL TABLET take 1 tablet po qhs for restless leg syndrome. PRAMIPEXOLE DIHYD ROCHLORIDE 0.125 MG ORAL TABLET 116847 PRAMIPEXOLE DIHYDROCHLORIDE Inactive MIRTAZAPINE 15 MG ORAL TABLET 1/2 tab by mouth at bedtime. 03/13 MIRTAZAPINE 15 MG ORAL TABLET 046727 MIRTAZAPINE In active DIFLUCAN 100 MG ORAL TABLET 1 tablet by mouth daily X 3 DAYS 201 04/09/01 DIFLUCAN 100 MG ORAL TABLET 291946 FLUCONAZOLE Inac tive DIFLUCAN 100 MG ORAL TABLET 1 tablet by mouth every other da y for 2 doses DIFLUCAN 100 MG ORAL TABLET 188599 FLUCONAZOLE Inactive CEFTIN 250 MG ORAL TABLET 1 tablet twice daily x 7 days CEFTIN 250 MG ORAL TABLET CEFUROXIME AXETIL Inactive CYMBALTA 30 MG ORAL CAPSULE DELAYED RELEASE PARTICLES 1 cap by mouth daily with 60mg CYMBALTA 30 MG ORAL CAPSULE DELAYED RELEASE PARTICLES 689137 DULOXETINE HCL Inactive CYMBALTA 60 MG ORAL CAPSULE DELAYED RELEASE PARTICLES Take 1 tablet by mouth daily CYMBALTA 60 MG ORAL CAPSULE DELAYED RELEA SE PARTICLES 130028 DULOXETINE HCL Inactive FOSAMAX 70 MG ORAL TABLET 1 po qweek. Take 30min prio r to first food/drink. Avoid lying down x 1 hour. FOSAMAX 70 MG ORAL TA BLET 945419 ALENDRONATE SODIUM Inactive DIFLUCAN 100 MG ORAL TABLET 1 tablet by mouth daily 19/08/26 DIFLUCAN 100 MG ORAL TABLET 681428 FLUCONAZOLE Inactive PREDNISONE 20 MG ORAL TABLET 1 tab twice daily for 3 d ay, then one daily for three days PREDNISONE 20 MG ORAL TABLET 623403 PREDNIS ONE Inactive PROAIR HFA 108 (90 BASE) MCG/ACT INHALATION AEROSOL SO LUTION 1 puff every 6 hours as needed PROAIR HFA 108 (90 B ASE) MCG/ACT INHALATION AEROSOL SOLUTION ALBUTEROL SULFATE Inactive MECLIZINE HCL 25 MG ORAL TABLET one tab po qday prn dizziness 20 17/09/06 MECLIZINE HCL 25 MG ORAL TABLET 792164 MECLIZINE HCL Inactive PREDNISONE 20 MG ORAL TABLET 1 tablet by mouth twice d aily for 3 days, then 1 tablet daily for 3 days PREDNISONE 20 MG ORAL TA BLET 029818 PREDNISONE Inactive DIFLUCAN 100 MG ORAL TABLET 1 tablet by mouth daily 20 20/06/06 DIFLUCAN 100 MG ORAL TABLET 424443 FLUCONAZOLE Inactive BACTRIM DS 800-160 MG ORAL TABLET 1 tab by mouth twice daily 201 03/03/23 BACTRIM DS 800-160 MG ORAL TABLET 19830105 TRIMETHOPRIM-SULFAMETHOXAZOLE Inactive ZITHROMAX 250 MG ORAL TABLET 2 po today, then 1 po q days 2-5 20 15/02/10 ZITHROMAX 250 MG ORAL TABLET 803909 AZITHROMYCIN [place] ctive BACTRIM DS 800-160 MG ORAL TABLET [...] 20 19/03/05 DIFLUCAN 100 MG ORAL TABLET 520734 FLUCONAZOLE Inactive BACTRIM DS 800-160 MG ORAL TABLET 1 tab by mouth twice daily 201 05/10/28 BACTRIM DS 800-160 MG ORAL TABLET 128209 TRIMETHOPRIM-SULFAMETHOXAZOLE Inactive AMOXICILLIN 500 MG ORAL CAPSULE 1 cap by mouth three times a day AMOXICILLIN 500 MG ORAL CAPSULE 790598 AMOXICILLIN Inactive ZITHROMAX 250 MG ORAL TABLET 2 po today, then 1 po q days 2-5 20 20/04/28 ZITHROMAX 250 MG ORAL TABLET 179721 AZITHROMYCIN [place] ctive DIFLUCAN 100 MG ORAL TABLET 1 tablet by mouth daily 20 20/05/01 DIFLUCAN 100 MG ORAL TABLET 608460 FLUCONAZOLE Inactive BACTRIM DS 800-160 MG ORAL TABLET 1 tab by mouth twice daily 201 06/09/02 BACTRIM DS 800-160 MG ORAL TABLET 780297 TRIMETHOPRIM-SULFAMETHOXAZOLE Inactive Advance Directives Directive Description Start Date PERMISSION TO SHARE DISCUSSED WITH PATIENT -- NO DECISION MADE DURABLE POWER OF FINISH MENDER FOR HEALTHCARE DISCUSED WITH PATIENT -- FULL [...] sium - Chemistry sodium, serum 141 mmol/L 681-242 6148/01/26 carbon dioxide, venous blood 29.5 mmol/L 21.0-32 [...] dipstick Trace-lysed Negative sodium, serum 139 mmol/L 864-696 4714/11/07 carbon dioxide, venous blood 28.4 mmol/L 21.0-32 [...] mg/dL Encounters Code Encounter Date Provider Facility CPT-77578 [id number] Vst-Est Level IV 19:27:[address] Tesfaye Sherman MD [facility] CPT-58362 [id number] Vst-Est Level IV 10:41:41 C DT Tesfaye Sherman MD [facility] CPT-12456 [id number] Vst-Est Level III 09:40:56 CDT Tesfaye Sherman MD [facility] CPT-62326 Level 4 Est. Patient 22:18:12 CDT Tesfaye pearson MD [facility] CPT-07192 Level 4 Est. Patient 14:44:33 CLERICAL SUPPORT SPECIALIST Tesfaye pearson MD [facility] CPT-76082 Level 4 Est. Patient 13:55:29 CLERICAL SUPPORT SPECIALIST Tesfaye pearson MD [facility] CPT-03138 Level 4 Est. Patient 17:07:34 CLERICAL SUPPORT SPECIALIST Tesfaye pearson MD [facility] CPT-71652 Level 4 Est. Patient 13:56:54 CDT Tesfaye pearson MD [facility] CPT-37303 Level 4 Est. Patient 13:24:25 CDT Chelsea sanz APRN [facility] CPT-14731 Level 4 Est. Patient 09:14:56 CDT Tesfaye pearson MD [facility] CPT-96219 Level 4 Est. Patient 18:40:25 CLERICAL SUPPORT SPECIALIST Tesfaye pearson MD [facility]-04267 Level 4 Est. Patient 18:13:07 CLERICAL SUPPORT SPECIALIST Tesfaye pearson MD [facility]-88961 Level 3 Est. Patient 10:46:32 CDT Rj cotto DO [facility]-33357 Level 4 Est. Patient 20:19:25 CDT Tesfaye pearson MD [facility]-16683 Level 3 Est. Patient 09:07:31 CDT Tesfaye pearson MD [facility]-93009 Level 4 Est. Patient 13:12:56 CDT Tesfaye pearson MD [facility]-89038 Level 4 Est. Patient 21:24:55 CLERICAL SUPPORT SPECIALIST Tesfaye pearson MD [facility]-67301 Level 3 Est. Patient 13:45:04 CLERICAL SUPPORT SPECIALIST Tesfaye pearson MD [facility] CPT-18059 Level 4 Est. Patient 13:50:45 CDT Tesfaye pearson MD [facility]-95840 Level 3 Est. Patient 10:16:10 CDT Tesfaye pearson MD [facility] CPT-60054 Level 3 Est. Patient 16:36:07 CLERICAL SUPPORT SPECIALIST Kayla jameson MD [facility]-71987 Level 4 Est. Patient 16:00:14 CLERICAL SUPPORT SPECIALIST Tesfaye pearson MD [facility]-36578 Level 4 Est. Patient 11:02:24 CLERICAL SUPPORT SPECIALIST Tesfaye pearson MD [facility]-68589 Level 3 Est. Patient 20:21:43 CLERICAL SUPPORT SPECIALIST Kayla jameson MD [facility]-51497 Level 3 Est. Patient 13:27:28 CLERICAL SUPPORT SPECIALIST Kayla jameson MD [facility]-99166 Level 4 Est. Patient 15:57:17 CLERICAL SUPPORT SPECIALIST Tesfaye pearson MD [facility] CPT-81695 Level 3 New Patient 13:25:47 CDT Tesfaye kidd MD [facility] CPT-30444 Level 3 New Patient 17:22:21 CDT Kayla angel MD [facility] Procedures Code Procedure Name Date Entry Date Standard Desc ription CPT-G0439 Subsequent Annual Wellness Exam 22:18:11 CDT CPT-58645 Bone Density - XRAY USE ONLY 11:43:58 CDT 2 CPT-65404 Bone Density - XRAY USE ONLY 10:05:16 CDT 2 CPT-13541 Prv Med New Pt 40-64 yrs 18:19:25 CDT 2016 CPT-73340 Foot, right, comp min 3V - XRAY USE ONLY 10:38:34 CDT CPT-G0439 Subsequent Annual Wellness Exam 13:55:04 CDT CPT-G0438 Initial Annual Wellness Exam 11:23:17 CD T CPT-J2930 Solu Medrol 125 mg (Methyl Prednisolone Sodium Succinate) 17:29:12 CLERICAL SUPPORT SPECIALIST CPT-65463 Abx/Therapy Injection 17:29:11 CLERICAL SUPPORT SPECIALIST CPT-J2930 Solu Medrol 125 mg (Methyl Prednisolone Sodium Succinate) 12:34:38 CLERICAL SUPPORT SPECIALIST CPT-J3420 Vitamin B12 1000mcg (Cyanocobalamin) 09:12:55 CDT CPT-J3420 Vitamin B12 1000mcg (Cyanocobalamin) 16:28:06 CLERICAL SUPPORT SPECIALIST CPT-16289 Venipuncture Draw Fee 08:39:53 CDT CPT-J3420 Vitamin B12 1000mcg (Cyanocobalamin) 08:46:22 CDT CPT-54271 Abx/Therapy Injection 08:46:22 CDT CPT-J3420 Vitamin B12 1000mcg (Cyanocobalamin) 08:41:26 CDT CPT-92991 Abx/Therapy Injection 08:41:26 CDT CPT-J3420 Vitamin B12 1000mcg (Cyanocobalamin) 08:57:15 CDT CPT-33856 Abx/Therapy Injection 08:57:15 CDT CPT-J3420 Vitamin B12 1000mcg (Cyanocobalamin) 10:59:03 CDT CPT-97217 Abx/Therapy Injection 10:59:03 CDT CPT-J3420 Vitamin B12 1000mcg (Cyanocobalamin) 15:05:39 CDT CPT-20522 Abx/Therapy Injection 15:05:39 CDT CPT-J3420 Vitamin B12 1000mcg (Cyanocobalamin) 13:50:45 CDT CPT-J3420 Vitamin B12 1000mcg (Cyanocobalamin) 08:48:55 CDT CPT-31419 Abx/Therapy Injection 08:48:55 CDT CPT-J3420 Vitamin B12 1000mcg (Cyanocobalamin) 09:14:54 CDT CPT-61754 Abx/Therapy Injection 09:14:54 CDT CPT-J3420 Vitamin B12 1000mcg (Cyanocobalamin) 09:06:06 CDT CPT-51449 Abx/Therapy Injection 09:06:06 CDT CPT-J3420 Vitamin B12 1000mcg (Cyanocobalamin) 09:49:14 CDT CPT-65126 Abx/Therapy Injection 09:49:14 CDT CPT-J3420 Vitamin B12 1000mcg (Cyanocobalamin) 09:10:30 CLERICAL SUPPORT SPECIALIST CPT-97164 Abx/Therapy Injection 09:10:30 CLERICAL SUPPORT SPECIALIST CPT-J3420 Vitamin B12 1000mcg (Cyanocobalamin) 09:11:07 CLERICAL SUPPORT SPECIALIST CPT-65744 Abx/Therapy Injection 09:11:07 CLERICAL SUPPORT SPECIALIST CPT-J3420 Vitamin B12 1000mcg (Cyanocobalamin) 09:57:03 CLERICAL SUPPORT SPECIALIST CPT-94667 Abx/Therapy Injection 09:57:03 CLERICAL SUPPORT SPECIALIST CPT-J3420 Vitamin B12 1000mcg (Cyanocobalamin) 09:23:21 CLERICAL SUPPORT SPECIALIST CPT-51067 Abx/Therapy Injection 09:23:21 CLERICAL SUPPORT SPECIALIST CPT-99968 Urine Dip (Floor Use Only) 20:21:44 CLERICAL SUPPORT SPECIALIST 201 02/12/11 CPT-25518 UA Dip Auto (Floor Use Only) 10:04:39 CLERICAL SUPPORT SPECIALIST 2 CPT-07110 Urine Dip (Floor Use Only) 13:27:28 CLERICAL SUPPORT SPECIALIST 201 02/12/01 CPT-90634 Bladder Scan 13:27:28 CLERICAL SUPPORT SPECIALIST CPT-86860 Abd single AP View 14:30:51 CLERICAL SUPPORT SPECIALIST CPT-OV Office Visit 10:15:43 CDT CPT-93089 Urine Dip (Floor Use Only) 17:22:21 CDT 201 02/09/02 CPT-97446 Bladder Scan 17:22:21 CDT
--- OUTSIDE RECORDS SUMMARY | 2020-05-05 12:30 | XMS REPORT | Clinical Summary ---
Author Author Talon, Jeri Wood Organization [employer] Address Unknown Phone Unavailable Allergies, Adverse Reactions, [...] Other malaise and fatigue Sinusitis 461.9 Active Tesfaey Sherman MD Acute sinusitis, unspecified Interstitial Cystitis [...] Toe pain, right 729.5 Active Chelsea Cardenas [employer] Pain in limb Foot pain, right 729.5 Active Chelsea Cardenas [employer] Pain in limb Joint pain 719.40 Active Chelsea Cardenas [employer] Pain in joint, site unspecified Tobacco abuse 305.1 Refinement Edith Burch MD Tobacco use disorder Personal history of tobacco use V15.82 Active 2017 Tesfaye Sherman MD Personal history of tobacco use Dysuria 788.1 Active Tesfaye Sherman MD Dysuria Depression, major, recurrent 296.30 Refinement eTsfaye Sherman MD Major depressive disorder, recurrent epi [...] daily if needed for congestion PSEUDOEPHEDRINE HCL [id number] A ctive Tesfaye Sherman MD Active ABILIFY 2 MG ORAL TABLET 1 by mouth daily. MARIA ELENA PIPRAZOLE 84259940696 Active Tesfaye Sherman MD Active CYMBALTA 60 MG ORAL CAPSULE DELAYED RELEASE PARTICLES 1 cap by mouth daily for pain DULOXETINE HCL 75253338701 Active Tesfaye Owusu Active DIFLUCAN 100 MG ORAL TABLET 1 tablet by mouth daily 20 20/06/06 FLUCONAZOLE 13389126306 No Longer Active Tesfaye Sherman MD Acti ve PREDNISONE 20 MG ORAL TABLET 1 tablet by mouth twice d aily for 3 days, then 1 tablet daily for 3 days PREDNISONE 89081082326 No L onger Active Tesfaye Sherman MD Active DIFLUCAN 100 MG ORAL TABLET 1 tablet by mouth daily FLUCONAZOLE 19123187148 Active Tesfaye Sherman MD Active BACTRIM DS 800-160 MG ORAL TABLET 1 tab by mouth twice daily 201 06/09/02 TRIMETHOPRIM-SULFAMETHOXAZOLE 32397207789 No Longer Active Fer Dominguez Active DIFLUCAN 100 MG ORAL TABLET 1 tablet by mouth daily 20 20/05/01 FLUCONAZOLE 76000532272 No Longer Active Tesfaye Sherman MD Acti ve ZITHROMAX 250 MG ORAL TABLET 2 po today, then 1 po q days 2-5 20 20/04/28 AZITHROMYCIN 24684592276 No Longer Active Tesfaye Sherman MD Active MECLIZINE HCL 25 MG ORAL TABLET one tab po qday prn dizziness 20 17/09/06 MECLIZINE HCL 76098156307 No Longer Active Tesfaye Sherman MD Active PROAIR HFA 108 (90 BASE) MCG/ACT INHALATION AEROSOL SO LUTION 1 puff every 6 hours as needed ALBUTEROL SULFATE 53233927084 No Long er Active Tesfaye Sherman MD Active OXYCODONE-ACETAMINOPHEN 5-325 MG ORAL TABLET Take one tablet by mouth every 6 hours as needed. Use sparingly OXYCODONE-ACETAMINOPHEN 66601860450 Active Tesfaye Sherman MD Active PREDNISONE 20 MG ORAL TABLET 1 tab twice daily for 3 d ay, then one daily for three days PREDNISONE 91717288912 No Longer Active Tesfaye Sherman MD Active MECLIZINE HCL 25 MG ORAL TABLET one 4 times a day as needed for dizziness MECLIZINE HCL 63900578844 Active Tesfaey Sherman MD Active AMOXICILLIN 500 MG ORAL CAPSULE 1 cap by mouth three times a day AMOXICILLIN 51159523911 No Longer Active Laurence Dominguez Acti ve VENLAFAXINE HCL 75 MG ORAL TABLET 1 am 1/2 at noon VENLAFAXINE HCL 04860677191 Active Tesfaye Sherman MD Active DIFLUCAN 100 MG ORAL TABLET 1 tablet by mouth daily 20 19/08/26 FLUCONAZOLE 57659527228 No Longer Active Tesfaye Sherman MD Acti ve BACTRIM DS 800-160 MG ORAL TABLET 1 tab by mouth twice daily 201 05/10/28 TRIMETHOPRIM-SULFAMETHOXAZOLE 70568835527 No Longer Active A mirna Angelica Active FOSAMAX 70 MG ORAL TABLET 1 po qweek. Take 30min prio r to first food/drink. Avoid lying down x 1 hour. ALENDRONATE SODIUM 24893479 144 No Longer Active Laurence Lopezduyen Active REPHRESH PRO-B ORAL CAPSULE 1 tablet daily LACT OBACILLUS 63665774764 Active Edith Burch MD Active CYMBALTA 60 MG ORAL CAPSULE DELAYED RELEASE PARTICLES Take 1 tablet by mouth daily DULOXETINE HCL 10400644981 No Longer Active Edith Burch MD Active CYMBALTA 30 MG ORAL CAPSULE DELAYED RELEASE PARTICLES 1 cap by mouth daily with 60mg DULOXETINE HCL 60195702159 No Longer Active Jordan Burch MD Active FISH OIL 1000 MG ORAL CAPSULE DELAYED RELEASE 1 pill b y mouth daily for cholesterol OMEGA-3 FATTY ACIDS 61646027838 Active Cee Jaffe LPN Active RED YEAST RICE 600 MG ORAL CAPSULE 1 pill by mouth daily RED YEAST RICE EXTRACT 90523556153 Active Rosa Jaffe LPN Activ e DIFLUCAN 100 MG ORAL TABLET 1 tablet by mouth daily 19/03/05 FLUCONAZOLE 86745173719 No Longer Active Tesfaye Mcdonaldi ve BACTRIM DS 800-160 MG ORAL TABLET 1 tab by mouth twice daily 201 05/06/28 TRIMETHOPRIM-SULFAMETHOXAZOLE 11851111466 No Longer Active Umer Sherman MD Active BACTRIM DS 800-160 MG ORAL TABLET 1 tab by mouth twice daily 201 05/04/15 TRIMETHOPRIM-SULFAMETHOXAZOLE 57027505574 No Longer Active Umer Sherman MD Active DIFLUCAN 150 MG ORAL TABLET 1 tablet by mouth daily 20 18/09/20 FLUCONAZOLE 00074338687 No Longer Active Tesfaye Sherman MD Acti ve BACTRIM DS 800-160 MG ORAL TABLET 1 tab by mouth twice daily 201 04/13/17 TRIMETHOPRIM-SULFAMETHOXAZOLE 47970358802 No Longer Active Umer Sherman MD Active ROPINIROLE HCL 0.25 MG ORAL TABLET 1 TAB PO Q HS ROPINIROLE HCL 02062493113 Active Tesfaye Sherman MD Active CEFTIN 250 MG ORAL TABLET 1 tablet twice daily x 7 days CEFUROXIME AXETIL 10443013498 No Longer Active Tesfaye Sherman MD Active DIFLUCAN 100 MG ORAL TABLET 1 tablet by mouth every other da y for 2 doses FLUCONAZOLE 24270700004 No Longer Active Tesfaye barron MD Active DIFLUCAN 100 MG ORAL TABLET 1 tablet by mouth daily X 3 DAYS 201 04/09/01 FLUCONAZOLE 92512742145 No Longer Active Rj Lyons tive MIRTAZAPINE 15 MG ORAL TABLET 1/2 tab by mouth at bedtime. 03/13 MIRTAZAPINE 23240943232 No Longer Active Tesfaye Sherman MD Active BACTRIM DS 800-160 MG ORAL TABLET 1 tab by mouth twice daily 201 04/09/01 TRIMETHOPRIM-SULFAMETHOXAZOLE 25956338767 No Longer Active Umer Sherman MD Active PRAMIPEXOLE DIHYDROCHLORIDE 0.125 MG ORAL TABLET take 1 tablet po qhs for restless leg syndrome. PRAMIPEXOLE DIHYDROCHLORI DE 33025833227 No Longer Active Tesfaye Sherman MD Active MAGNESIUM 400 MG ORAL TABLET 1 tab po daily MAGNE SIUM 24538636222 Active Chelsea Cardenas APRN Active SUDAFED 24 HOUR 240 MG ORAL TABLET EXTENDED RELEASE 24 HOUR 1 tab po daily PSEUDOEPHEDRINE HCL 32028213308 Active Chelsea Cardenas APRN Active CETIRIZINE HCL 5 MG ORAL TABLET Take 1 tablet by mouth daily CETIRIZINE HCL 14136080023 No Longer Active Chelsea Cardenas APRN Activ e TRIMETHOPRIM 100 MG ORAL TABLET 1/2 qd TRIM ETHOPRIM 05096714783 No Longer Active Chelsea Cardenas APRN Active BACTRIM DS 800-160 MG ORAL TABLET 1 tab by mouth twice daily 201 04/04/11 TRIMETHOPRIM-SULFAMETHOXAZOLE 25415813963 No Longer Active Umer Sherman MD Active BACTRIM DS 800-160 MG ORAL TABLET 1 tab by mouth twice daily X 10 DAYS TRIMETHOPRIM-SULFAMETHOXAZOLE 02331626041 No Longer Active Tesfaye Sherman MD Active AMOXICILLIN 500 MG ORAL CAPSULE 1 cap by mouth three times a day AMOXICILLIN 72011100275 No Longer Active Adriana Arredondo Active B-12 1000 MCG ORAL LOZENGE 1 tab po daily CYANO COBALAMIN 54862311425 Active Tesfaye Sherman MD Active VITAMIN D3 2000 UNIT ORAL TABLET 1 daily, for vitamin D deficien cy CHOLECALCIFEROL 25487702799 No Longer Active Tesfaye Sherman MD Active TIZANIDINE HCL 2 MG ORAL TABLET take 1-2 tablet by [facility] every day at bedtime at 9pm PRN TIZANIDINE HCL 21924152665 Active Tesfaye hewitt MD Active ZITHROMAX 250 MG ORAL TABLET 2 po today, then 1 po q days 2-5 20 15/02/10 AZITHROMYCIN 36390493129 No Longer Active Tesfaye Sherman MD Active BACTRIM DS 800-160 MG ORAL TABLET 1 tab by mouth twice daily 201 03/03/23 TRIMETHOPRIM-SULFAMETHOXAZOLE 31290592738 No Longer Active Umer Sherman MD Active PRELIEF 340 (65-50) MG (CA-P) ORAL TABLET CALCIUM GLYCEROPHOSPHATE 77652586211 Active Tesfaye Sherman MD Acti ve [facility] NIACIN FLUSH FREE 400-100 MG ORAL CAPSULE 1 daily NIACIN-INOSITOL 48766605221 Active Kayla Cooper MD Activ e DIFLUCAN 150 MG ORAL TABLET 1 qd FLUCONAZOL E 19250543151 No Longer Active Kayla Cooper MD Active FLUTICASONE PROPIONATE 50 MCG/ACT NASAL SUSPENSION 1 spray each nostril twice daily FLUTICASONE PROPIONATE 26212196316 Active D patricia Sherman MD Active LOVASTATIN 20 MG ORAL TABLET Take 1 tablet by mouth daily LOVASTATIN 15984216596 No Longer Active Tesfaye Sherman MD Acti ve MELOXICAM 7.5 MG ORAL TABLET 1 tablet by mouth daily 2 MELOXICAM 96561573707 No Longer Active Tesfaye Sherman MD Acti ve GABAPENTIN 300 MG ORAL CAPSULE Take two tablets by mouth every e vening GABAPENTIN 88513739788 No Longer Active Edith Burch MD A ctive CLONAZEPAM 0.5 MG ORAL TABLET Take one tablet in the m orning and 1.5 tablet at 7pm CLONAZEPAM 82980111323 Active Kayla Cooper MD Active BACLOFEN 10 MG ORAL TABLET Take one tablet by mouth three times a d ay BACLOFEN 20392566240 Active Kayla Cooper MD Active GABAPENTIN 300 MG ORAL CAPSULE Take two tablets by mouth every e vening GABAPENTIN 300 MG ORAL CAPSULE 598041 GABAPENTIN I nactive MELOXICAM 7.5 MG ORAL TABLET 1 tablet by mouth daily 2 MELOXICAM 7.5 MG ORAL TABLET 255474 MELOXICAM Inactive LOVASTATIN 20 MG ORAL TABLET Take 1 tablet by mouth daily LOVASTATIN 20 MG ORAL TABLET 710818 LOVASTATIN Inactive DIFLUCAN 150 MG ORAL TABLET 1 qd DIFLUCAN 150 MG ORAL TABLET 220320 FLUCONAZOLE Inactive VITAMIN D3 2000 UNIT ORAL TABLET 1 daily, for vitamin D deficien cy VITAMIN D3 2000 UNIT ORAL TABLET CHOLECALCIFEROL Inactive AMOXICILLIN 500 MG ORAL CAPSULE 1 cap by mouth three times a day AMOXICILLIN 500 MG ORAL CAPSULE 182852 AMOXICILLIN Inactive BACTRIM DS 800-160 MG ORAL TABLET 1 tab by mouth twice daily X 10 DAYS BACTRIM DS 800-160 MG ORAL TABLET 19830105 TRIMETHOPRIM-SULFAMETHOXAZOLE Inactive TRIMETHOPRIM 100 MG ORAL TABLET 1/2 qd 7 TRIMETHOPRIM 100 MG ORAL TABLET 19830102 TRIMETHOPRIM Inactive CETIRIZINE HCL 5 MG ORAL TABLET Take 1 tablet by mouth daily CETIRIZINE HCL 5 MG ORAL TABLET 6465911 CETIRIZINE HCL Inactive PRAMIPEXOLE DIHYDROCHLORIDE 0.125 MG ORAL TABLET take 1 tablet po qhs for restless leg syndrome. PRAMIPEXOLE DIHYD ROCHLORIDE 0.125 MG ORAL TABLET 641111 PRAMIPEXOLE DIHYDROCHLORIDE Inactive MIRTAZAPINE 15 MG ORAL TABLET 1/2 tab by mouth at bedtime. 03/13 MIRTAZAPINE 15 MG ORAL TABLET 094689 MIRTAZAPINE In active DIFLUCAN 100 MG ORAL TABLET 1 tablet by mouth daily X 3 DAYS 201 04/09/01 DIFLUCAN 100 MG ORAL TABLET 769257 FLUCONAZOLE Inac tive DIFLUCAN 100 MG ORAL TABLET 1 tablet by mouth every other da y for 2 doses DIFLUCAN 100 MG ORAL TABLET 586028 FLUCONAZOLE Inactive CEFTIN 250 MG ORAL TABLET 1 tablet twice daily x 7 days CEFTIN 250 MG ORAL TABLET CEFUROXIME AXETIL Inactive CYMBALTA 30 MG ORAL CAPSULE DELAYED RELEASE PARTICLES 1 cap by mouth daily with 60mg CYMBALTA 30 MG ORAL CAPSULE DELAYED RELEASE PARTICLES 895055 DULOXETINE HCL Inactive CYMBALTA 60 MG ORAL CAPSULE DELAYED RELEASE PARTICLES Take 1 tablet by mouth daily CYMBALTA 60 MG ORAL CAPSULE DELAYED RELEA SE PARTICLES 984022 DULOXETINE HCL Inactive FOSAMAX 70 MG ORAL TABLET 1 po qweek. Take 30min prio r to first food/drink. Avoid lying down x 1 hour. FOSAMAX 70 MG ORAL TA BLET 399974 ALENDRONATE SODIUM Inactive DIFLUCAN 100 MG ORAL TABLET 1 tablet by mouth daily 19/08/26 DIFLUCAN 100 MG ORAL TABLET 344150 FLUCONAZOLE Inactive PREDNISONE 20 MG ORAL TABLET 1 tab twice daily for 3 d ay, then one daily for three days PREDNISONE 20 MG ORAL TABLET 744979 PREDNIS ONE Inactive PROAIR HFA 108 (90 BASE) MCG/ACT INHALATION AEROSOL SO LUTION 1 puff every 6 hours as needed PROAIR HFA 108 (90 B ASE) MCG/ACT INHALATION AEROSOL SOLUTION ALBUTEROL SULFATE Inactive MECLIZINE HCL 25 MG ORAL TABLET one tab po qday prn dizziness 20 17/09/06 MECLIZINE HCL 25 MG ORAL TABLET 105073 MECLIZINE HCL Inactive PREDNISONE 20 MG ORAL TABLET 1 tablet by mouth twice d aily for 3 days, then 1 tablet daily for 3 days PREDNISONE 20 MG ORAL TA BLET 080438 PREDNISONE Inactive DIFLUCAN 100 MG ORAL TABLET 1 tablet by mouth daily 20 20/06/06 DIFLUCAN 100 MG ORAL TABLET 325959 FLUCONAZOLE Inactive BACTRIM DS 800-160 MG ORAL TABLET 1 tab by mouth twice daily 201 03/03/23 BACTRIM DS 800-160 MG ORAL TABLET 19830105 TRIMETHOPRIM-SULFAMETHOXAZOLE Inactive ZITHROMAX 250 MG ORAL TABLET 2 po today, then 1 po q days 2-5 20 15/02/10 ZITHROMAX 250 MG ORAL TABLET 490055 AZITHROMYCIN [place] ctive BACTRIM DS 800-160 MG ORAL TABLET [...] 20 19/03/05 DIFLUCAN 100 MG ORAL TABLET 777856 FLUCONAZOLE Inactive BACTRIM DS 800-160 MG ORAL TABLET 1 tab by mouth twice daily 201 05/10/28 BACTRIM DS 800-160 MG ORAL TABLET 914197 TRIMETHOPRIM-SULFAMETHOXAZOLE Inactive AMOXICILLIN 500 MG ORAL CAPSULE 1 cap by mouth three times a day AMOXICILLIN 500 MG ORAL CAPSULE 348523 AMOXICILLIN Inactive ZITHROMAX 250 MG ORAL TABLET 2 po today, then 1 po q days 2-5 20 20/04/28 ZITHROMAX 250 MG ORAL TABLET 660696 AZITHROMYCIN [place] ctive DIFLUCAN 100 MG ORAL TABLET 1 tablet by mouth daily 20 20/05/01 DIFLUCAN 100 MG ORAL TABLET 694211 FLUCONAZOLE Inactive BACTRIM DS 800-160 MG ORAL TABLET 1 tab by mouth twice daily 201 06/09/02 BACTRIM DS 800-160 MG ORAL TABLET 381163 TRIMETHOPRIM-SULFAMETHOXAZOLE Inactive Advance Directives Directive Description Start Date PERMISSION TO SHARE DISCUSSED WITH PATIENT -- NO DECISION 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 DISCUSED WITH PATIENT -- [...] sium - Chemistry sodium, serum 141 mmol/L 163-406 8547/01/26 carbon dioxide, venous blood 29.5 mmol/L 21.0-32 [...] dipstick Trace-lysed Negative sodium, serum 139 mmol/L 524-608 4985/11/07 carbon dioxide, venous blood 28.4 mmol/L 21.0-32 [...] mg/dL Encounters Code Encounter Date Provider Facility CPT-08478 [id number] Vst-Est Level IV 19:27:[address] Tesfaye Sherman MD [facility] CPT-49343 [id number] Vst-Est Level IV 10:41:41 C DT Tesfaye Sherman MD [facility] CPT-64171 [id number] Vst-Est Level III 09:40:56 CDT Tesfaye Sherman MD [facility] CPT-03204 Level 4 Est. Patient 22:18:12 CDT Tesfaye pearson MD [facility] CPT-02616 Level 4 Est. Patient 14:44:33 TRANSCRIPTIONIST Tesfaye pearson MD [facility] CPT-87116 Level 4 Est. Patient 13:55:29 TRANSCRIPTIONIST Tesfaye pearson MD [facility] CPT-98720 Level 4 Est. Patient 17:07:34 TRANSCRIPTIONIST Tesfaye pearson MD [facility] CPT-32001 Level 4 Est. Patient 13:56:54 CDT Tesfaye pearson MD [facility] CPT-24401 Level 4 Est. Patient 13:24:25 CDT Chelsea sanz APRN [facility] CPT-45621 Level 4 Est. Patient 09:14:56 CDT Tesfaye pearson MD [facility] CPT-64744 Level 4 Est. Patient 18:40:25 TRANSCRIPTIONIST Tesfaye pearson MD [facility]-07957 Level 4 Est. Patient 18:13:07 TRANSCRIPTIONIST Tesfaye pearson MD [facility]-25203 Level 3 Est. Patient 10:46:32 CDT Rj cotto DO [facility]-47336 Level 4 Est. Patient 20:19:25 CDT Tesfaye pearson MD [facility]-32463 Level 3 Est. Patient 09:07:31 CDT Tesfaye pearson MD [facility]-03744 Level 4 Est. Patient 13:12:56 CDT Tesfaye pearson MD [facility]-02672 Level 4 Est. Patient 21:24:55 TRANSCRIPTIONIST Tesfaye pearson MD [facility]-24875 Level 3 Est. Patient 13:45:04 TRANSCRIPTIONIST Tesfaye pearson MD [facility] CPT-11999 Level 4 Est. Patient 13:50:45 CDT Tesfaye pearson MD [facility]-08105 Level 3 Est. Patient 10:16:10 CDT Tesfaye pearson MD [facility] CPT-01331 Level 3 Est. Patient 16:36:07 TRANSCRIPTIONIST Kayla jameson MD [facility]-08120 Level 4 Est. Patient 16:00:14 TRANSCRIPTIONIST Tesfaye pearson MD [facility]-03885 Level 4 Est. Patient 11:02:24 TRANSCRIPTIONIST Tesfaye pearson MD [facility]-97056 Level 3 Est. Patient 20:21:43 TRANSCRIPTIONIST Kayla jameson MD [facility]-22608 Level 3 Est. Patient 13:27:28 TRANSCRIPTIONIST Kayla jameson MD [facility]-88388 Level 4 Est. Patient 15:57:17 TRANSCRIPTIONIST Tesfaye pearson MD [facility] CPT-78786 Level 3 New Patient 13:25:47 CDT Tesfaye kidd MD [facility] CPT-98357 Level 3 New Patient 17:22:21 CDT Kayla angel MD [facility] Procedures Code Procedure Name Date Entry Date Standard Desc ription CPT-G0439 Subsequent Annual Wellness Exam 22:18:11 CDT CPT-08458 Bone Density - XRAY USE ONLY 11:43:58 CDT 2 CPT-79740 Bone Density - XRAY USE ONLY 10:05:16 CDT 2 CPT-97700 Prv Med New Pt 40-64 yrs 18:19:25 CDT 2016 CPT-29159 Foot, right, comp min 3V - XRAY USE ONLY 10:38:34 CDT CPT-G0439 Subsequent Annual Wellness Exam 13:55:04 CDT CPT-G0438 Initial Annual Wellness Exam 11:23:17 CD T CPT-J2930 Solu Medrol 125 mg (Methyl Prednisolone Sodium Succinate) 17:29:12 TRANSCRIPTIONIST CPT-81535 Abx/Therapy Injection 17:29:11 TRANSCRIPTIONIST CPT-J2930 Solu Medrol 125 mg (Methyl Prednisolone Sodium Succinate) 12:34:38 TRANSCRIPTIONIST CPT-J3420 Vitamin B12 1000mcg (Cyanocobalamin) 09:12:55 CDT CPT-J3420 Vitamin B12 1000mcg (Cyanocobalamin) 16:28:06 TRANSCRIPTIONIST CPT-68254 Venipuncture Draw Fee 08:39:53 CDT CPT-J3420 Vitamin B12 1000mcg (Cyanocobalamin) 08:46:22 CDT CPT-39835 Abx/Therapy Injection 08:46:22 CDT CPT-J3420 Vitamin B12 1000mcg (Cyanocobalamin) 08:41:26 CDT CPT-06545 Abx/Therapy Injection 08:41:26 CDT CPT-J3420 Vitamin B12 1000mcg (Cyanocobalamin) 08:57:15 CDT CPT-67810 Abx/Therapy Injection 08:57:15 CDT CPT-J3420 Vitamin B12 1000mcg (Cyanocobalamin) 10:59:03 CDT CPT-08407 Abx/Therapy Injection 10:59:03 CDT CPT-J3420 Vitamin B12 1000mcg (Cyanocobalamin) 15:05:39 CDT CPT-06767 Abx/Therapy Injection 15:05:39 CDT CPT-J3420 Vitamin B12 1000mcg (Cyanocobalamin) 13:50:45 CDT CPT-J3420 Vitamin B12 1000mcg (Cyanocobalamin) 08:48:55 CDT CPT-79883 Abx/Therapy Injection 08:48:55 CDT CPT-J3420 Vitamin B12 1000mcg (Cyanocobalamin) 09:14:54 CDT CPT-37643 Abx/Therapy Injection 09:14:54 CDT CPT-J3420 Vitamin B12 1000mcg (Cyanocobalamin) 09:06:06 CDT CPT-27404 Abx/Therapy Injection 09:06:06 CDT CPT-J3420 Vitamin B12 1000mcg (Cyanocobalamin) 09:49:14 CDT CPT-03762 Abx/Therapy Injection 09:49:14 CDT CPT-J3420 Vitamin B12 1000mcg (Cyanocobalamin) 09:10:30 TRANSCRIPTIONIST CPT-57839 Abx/Therapy Injection 09:10:30 TRANSCRIPTIONIST CPT-J3420 Vitamin B12 1000mcg (Cyanocobalamin) 09:11:07 TRANSCRIPTIONIST CPT-71540 Abx/Therapy Injection 09:11:07 TRANSCRIPTIONIST CPT-J3420 Vitamin B12 1000mcg (Cyanocobalamin) 09:57:03 TRANSCRIPTIONIST CPT-73545 Abx/Therapy Injection 09:57:03 TRANSCRIPTIONIST CPT-J3420 Vitamin B12 1000mcg (Cyanocobalamin) 09:23:21 TRANSCRIPTIONIST CPT-08451 Abx/Therapy Injection 09:23:21 TRANSCRIPTIONIST CPT-65933 Urine Dip (Floor Use Only) 20:21:44 TRANSCRIPTIONIST 201 02/12/11 CPT-03872 UA Dip Auto (Floor Use Only) 10:04:39 TRANSCRIPTIONIST 2 CPT-10230 Urine Dip (Floor Use Only) 13:27:28 TRANSCRIPTIONIST 201 02/12/01 CPT-47272 Bladder Scan 13:27:28 TRANSCRIPTIONIST CPT-21338 Abd single AP View 14:30:51 TRANSCRIPTIONIST CPT-OV Office Visit 10:15:43 CDT CPT-11411 Urine Dip (Floor Use Only) 17:22:21 CDT 201 02/09/02 CPT-81842 Bladder Scan 17:22:21 CDT
--- OUTSIDE RECORDS SUMMARY | 2020-05-05 12:31 | XMS REPORT | Clinical Summary ---
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 MARIA ELENA PIPRAZOLE 30090165104 Active Tesfaye Sherman MD Active CYMBALTA 60 MG ORAL CAPSULE DELAYED RELEASE PARTICLES 1 cap by mouth daily for pain DULOXETINE HCL 30120698688 Active Tesfaye Owusu Active DIFLUCAN 100 MG ORAL TABLET 1 tablet by mouth daily 20 20/06/06 FLUCONAZOLE 45770050668 No Longer Active Tesfaye Sherman MD Acti ve PREDNISONE 20 MG ORAL TABLET 1 tablet by mouth twice d aily for 3 days, then 1 tablet daily for 3 days PREDNISONE 22998072281 No L onger Active Tesfaye Sherman MD Active DIFLUCAN 100 MG ORAL TABLET 1 tablet by mouth daily FLUCONAZOLE 08979805230 Active Tesfaye Sherman MD Active BACTRIM DS 800-160 MG ORAL TABLET 1 tab by mouth twice daily 201 06/09/02 TRIMETHOPRIM-SULFAMETHOXAZOLE 36845275248 No Longer Active Fer Dominguez Active DIFLUCAN 100 MG ORAL TABLET 1 tablet by mouth daily 20 20/05/01 FLUCONAZOLE 19883405238 No Longer Active Tesfaye Sherman MD Acti ve ZITHROMAX 250 MG ORAL TABLET 2 po today, then 1 po q days 2-5 20 20/04/28 AZITHROMYCIN 76855399019 No Longer Active Tesfaye Sherman MD Active MECLIZINE HCL 25 MG ORAL TABLET one tab po qday prn dizziness 20 17/09/06 MECLIZINE HCL 89642087444 No Longer Active Tesfaye Sherman MD Active PROAIR HFA 108 (90 BASE) MCG/ACT INHALATION AEROSOL SO LUTION 1 puff every 6 hours as needed ALBUTEROL SULFATE 05562771778 No Long er Active Tesfaye Sherman MD Active OXYCODONE-ACETAMINOPHEN 5-325 MG ORAL TABLET Take one tablet by mouth every 6 hours as needed. Use sparingly OXYCODONE-ACETAMINOPHEN 46877696921 Active Tesfaye Sherman MD Active PREDNISONE 20 MG ORAL TABLET 1 tab twice daily for 3 d ay, then one daily for three days PREDNISONE 85723826420 No Longer Active Tesfaye Sherman MD Active MECLIZINE HCL 25 MG ORAL TABLET one 4 times a day as needed for dizziness MECLIZINE HCL 91294017350 Active Tesfaye Sherman MD Active AMOXICILLIN 500 MG ORAL CAPSULE 1 cap by mouth three times a day AMOXICILLIN 55411602578 No Longer Active Laurence Dominguez Acti ve VENLAFAXINE HCL 75 MG ORAL TABLET 1 am 1/2 at noon VENLAFAXINE HCL 69426519812 Active Tesfaye Sherman MD Active DIFLUCAN 100 MG ORAL TABLET 1 tablet by mouth daily 20 19/08/26 FLUCONAZOLE 38039397547 No Longer Active Tesfaye Sherman MD Acti ve BACTRIM DS 800-160 MG ORAL TABLET 1 tab by mouth twice daily 201 05/10/28 TRIMETHOPRIM-SULFAMETHOXAZOLE 36331252327 No Longer Active A mirna Angelica Active FOSAMAX 70 MG ORAL TABLET 1 po qweek. Take 30min prio r to first food/drink. Avoid lying down x 1 hour. ALENDRONATE SODIUM 20972802 144 No Longer Active Laurence Lopezduyen Active REPHRESH PRO-B ORAL CAPSULE 1 tablet daily LACT OBACILLUS 59658342498 Active Edith Burch MD Active CYMBALTA 60 MG ORAL CAPSULE DELAYED RELEASE PARTICLES Take 1 tablet by mouth daily DULOXETINE HCL 31110586701 No Longer Active Edith Burch MD Active CYMBALTA 30 MG ORAL CAPSULE DELAYED RELEASE PARTICLES 1 cap by mouth daily with 60mg DULOXETINE HCL 62024098673 No Longer Active Jordan Burch MD Active FISH OIL 1000 MG ORAL CAPSULE DELAYED RELEASE 1 pill b y mouth daily for cholesterol OMEGA-3 FATTY ACIDS 18852325939 Active Cee Jaffe LPN Active RED YEAST RICE 600 MG ORAL CAPSULE 1 pill by mouth daily RED YEAST RICE EXTRACT 01188440560 Active Rosa Jafef LPN Activ e DIFLUCAN 100 MG ORAL TABLET 1 tablet by mouth daily 19/03/05 FLUCONAZOLE 68505314919 No Longer Active Tesfaye Mcdonaldi ve BACTRIM DS 800-160 MG ORAL TABLET 1 tab by mouth twice daily 201 05/06/28 TRIMETHOPRIM-SULFAMETHOXAZOLE 22607601995 No Longer Active Umer Sherman MD Active BACTRIM DS 800-160 MG ORAL TABLET 1 tab by mouth twice daily 201 05/04/15 TRIMETHOPRIM-SULFAMETHOXAZOLE 76382619607 No Longer Active Umer Sherman MD Active DIFLUCAN 150 MG ORAL TABLET 1 tablet by mouth daily 20 18/09/20 FLUCONAZOLE 08482650592 No Longer Active Tesfaye Sherman MD Acti ve BACTRIM DS 800-160 MG ORAL TABLET 1 tab by mouth twice daily 201 04/13/17 TRIMETHOPRIM-SULFAMETHOXAZOLE 70142000521 No Longer Active Umer Sherman MD Active ROPINIROLE HCL 0.25 MG ORAL TABLET 1 TAB PO Q HS ROPINIROLE HCL 48050787477 Active Tesfaye Sherman MD Active CEFTIN 250 MG ORAL TABLET 1 tablet twice daily x 7 days CEFUROXIME AXETIL 49881517976 No Longer Active Tesfaye Sherman MD Active DIFLUCAN 100 MG ORAL TABLET 1 tablet by mouth every other da y for 2 doses FLUCONAZOLE 46526802482 No Longer Active Tesfaye barron MD Active DIFLUCAN 100 MG ORAL TABLET 1 tablet by mouth daily X 3 DAYS 201 04/09/01 FLUCONAZOLE 49507575112 No Longer Active Rj Lyons tive MIRTAZAPINE 15 MG ORAL TABLET 1/2 tab by mouth at bedtime. 03/13 MIRTAZAPINE 27936796133 No Longer Active Tesfaye Sherman MD Active BACTRIM DS 800-160 MG ORAL TABLET 1 tab by mouth twice daily 201 04/09/01 TRIMETHOPRIM-SULFAMETHOXAZOLE 78666559300 No Longer Active Umer Sherman MD Active PRAMIPEXOLE DIHYDROCHLORIDE 0.125 MG ORAL TABLET take 1 tablet po qhs for restless leg syndrome. PRAMIPEXOLE DIHYDROCHLORI DE 62265489455 No Longer Active Tesfaye Sherman MD Active MAGNESIUM 400 MG ORAL TABLET 1 tab po daily MAGNE SIUM 44579888724 Active Chelsea Cardenas APRN Active SUDAFED 24 HOUR 240 MG ORAL TABLET EXTENDED RELEASE 24 HOUR 1 tab po daily PSEUDOEPHEDRINE HCL 23379989798 Active Chelsea Cardenas APRN Active CETIRIZINE HCL 5 MG ORAL TABLET Take 1 tablet by mouth daily CETIRIZINE HCL 07431188573 No Longer Active Chelsea Cardenas APRN Activ e TRIMETHOPRIM 100 MG ORAL TABLET 1/2 qd TRIM ETHOPRIM 43282244814 No Longer Active Chelsea Cardenas APRN Active BACTRIM DS 800-160 MG ORAL TABLET 1 tab by mouth twice daily 201 04/04/11 TRIMETHOPRIM-SULFAMETHOXAZOLE 37373366402 No Longer Active Umer Sherman MD Active BACTRIM DS 800-160 MG ORAL TABLET 1 tab by mouth twice daily X 10 DAYS TRIMETHOPRIM-SULFAMETHOXAZOLE 99284524662 No Longer Active Tesfaye Sherman MD Active AMOXICILLIN 500 MG ORAL CAPSULE 1 cap by mouth three times a day AMOXICILLIN 79671240350 No Longer Active Adriana Arredondo Active B-12 1000 MCG ORAL LOZENGE 1 tab po daily CYANO COBALAMIN 46492471977 Active Tesfaye Sherman MD Active VITAMIN D3 2000 UNIT ORAL TABLET 1 daily, for vitamin D deficien cy CHOLECALCIFEROL 63421500981 No Longer Active Tesfaye Sherman MD Active TIZANIDINE HCL 2 MG ORAL TABLET take 1-[facility] at [facility] at 9pm PRN TIZANIDINE HCL 90745500524 Active Tesfaye hewitt MD Active ZITHROMAX 250 MG ORAL TABLET 2 po today, then 1 po q days 2-5 20 15/02/10 AZITHROMYCIN 25709799276 No Longer Active Tesfaye Sherman MD Active BACTRIM DS 800-160 MG ORAL TABLET 1 tab by mouth twice daily 201 03/03/23 TRIMETHOPRIM-SULFAMETHOXAZOLE 67623262306 No Longer Active Umer Sherman MD Active PRELIEF 340 (65-50) MG (CA-P) ORAL TABLET CALCIUM GLYCEROPHOSPHATE 89267869919 Active Tesfaye Sherman MD Acti ve [facility] NIACIN FLUSH FREE 400-100 MG ORAL CAPSULE 1 daily NIACIN-INOSITOL 81124942925 Active Kayla Cooper MD Activ e DIFLUCAN 150 MG ORAL TABLET 1 qd FLUCONAZOL E 16680586788 No Longer Active Kayla Cooper MD Active FLUTICASONE PROPIONATE 50 MCG/ACT NASAL SUSPENSION 1 spray each nostril twice daily FLUTICASONE PROPIONATE 46467007415 Active D patricia Sherman MD Active LOVASTATIN 20 MG ORAL TABLET Take 1 tablet by mouth daily LOVASTATIN 63126011480 No Longer Active Tesfaye Sherman MD Acti ve MELOXICAM 7.5 MG ORAL TABLET 1 tablet by mouth daily 2 MELOXICAM 34924509794 No Longer Active Tesfaye Sherman MD Acti ve GABAPENTIN 300 MG ORAL CAPSULE Take two tablets by mouth every e vening GABAPENTIN 20764441364 No Longer Active Edith Burch MD A ctive CLONAZEPAM 0.5 MG ORAL TABLET Take one tablet in the m orning and 1.5 tablet at 7pm CLONAZEPAM 36120060214 Active Kayla Cooper MD Active BACLOFEN 10 MG ORAL TABLET Take one tablet by mouth three times a d ay BACLOFEN 48690872291 Active Kayla Cooper MD Active GABAPENTIN 300 MG ORAL CAPSULE Take two tablets by mouth every e vening GABAPENTIN 300 MG ORAL CAPSULE 253861 GABAPENTIN I nactive MELOXICAM 7.5 MG ORAL TABLET 1 tablet by mouth daily 2 MELOXICAM 7.5 MG ORAL TABLET 788076 MELOXICAM Inactive LOVASTATIN 20 MG ORAL TABLET Take 1 tablet by mouth daily LOVASTATIN 20 MG ORAL TABLET 420281 LOVASTATIN Inactive DIFLUCAN 150 MG ORAL TABLET 1 qd DIFLUCAN 150 MG ORAL TABLET 323127 FLUCONAZOLE Inactive VITAMIN D3 2000 UNIT ORAL TABLET 1 daily, for vitamin D deficien cy VITAMIN D3 2000 UNIT ORAL TABLET CHOLECALCIFEROL Inactive AMOXICILLIN 500 MG ORAL CAPSULE 1 cap by mouth three times a day AMOXICILLIN 500 MG ORAL CAPSULE 084881 AMOXICILLIN Inactive BACTRIM DS 800-160 MG ORAL TABLET 1 tab by mouth twice daily X 10 DAYS BACTRIM DS 800-160 MG ORAL TABLET 19830105 TRIMETHOPRIM-SULFAMETHOXAZOLE Inactive TRIMETHOPRIM 100 MG ORAL TABLET 1/2 qd 7 TRIMETHOPRIM 100 MG ORAL TABLET 19830102 TRIMETHOPRIM Inactive CETIRIZINE HCL 5 MG ORAL TABLET Take 1 tablet by mouth daily CETIRIZINE HCL 5 MG ORAL TABLET 3405206 CETIRIZINE HCL Inactive PRAMIPEXOLE DIHYDROCHLORIDE 0.125 MG ORAL TABLET take 1 tablet po qhs for restless leg syndrome. PRAMIPEXOLE DIHYD ROCHLORIDE 0.125 MG ORAL TABLET 954860 PRAMIPEXOLE DIHYDROCHLORIDE Inactive MIRTAZAPINE 15 MG ORAL TABLET 1/2 tab by mouth at bedtime. 03/13 MIRTAZAPINE 15 MG ORAL TABLET 449277 MIRTAZAPINE In active DIFLUCAN 100 MG ORAL TABLET 1 tablet by mouth daily X 3 DAYS 201 04/09/01 DIFLUCAN 100 MG ORAL TABLET 551588 FLUCONAZOLE Inac tive DIFLUCAN 100 MG ORAL TABLET 1 tablet by mouth every other da y for 2 doses DIFLUCAN 100 MG ORAL TABLET 390543 FLUCONAZOLE Inactive CEFTIN 250 MG ORAL TABLET 1 tablet twice daily x 7 days CEFTIN 250 MG ORAL TABLET CEFUROXIME AXETIL Inactive CYMBALTA 30 MG ORAL CAPSULE DELAYED RELEASE PARTICLES 1 cap by mouth daily with 60mg CYMBALTA 30 MG ORAL CAPSULE DELAYED RELEASE PARTICLES 792090 DULOXETINE HCL Inactive CYMBALTA 60 MG ORAL CAPSULE DELAYED RELEASE PARTICLES Take 1 tablet by mouth daily CYMBALTA 60 MG ORAL CAPSULE DELAYED RELEA SE PARTICLES 384421 DULOXETINE HCL Inactive FOSAMAX 70 MG ORAL TABLET 1 po qweek. Take 30min prio r to first food/drink. Avoid lying down x 1 hour. FOSAMAX 70 MG ORAL TA BLET 414953 ALENDRONATE SODIUM Inactive DIFLUCAN 100 MG ORAL TABLET 1 tablet by mouth daily 19/08/26 DIFLUCAN 100 MG ORAL TABLET 255854 FLUCONAZOLE Inactive PREDNISONE 20 MG ORAL TABLET 1 tab twice daily for 3 d ay, then one daily for three days PREDNISONE 20 MG ORAL TABLET 460614 PREDNIS ONE Inactive PROAIR HFA 108 (90 BASE) MCG/ACT INHALATION AEROSOL SO LUTION 1 puff every 6 hours as needed PROAIR HFA 108 (90 B ASE) MCG/ACT INHALATION AEROSOL SOLUTION ALBUTEROL SULFATE Inactive MECLIZINE HCL 25 MG ORAL TABLET one tab po qday prn dizziness 20 17/09/06 MECLIZINE HCL 25 MG ORAL TABLET 391782 MECLIZINE HCL Inactive PREDNISONE 20 MG ORAL TABLET 1 tablet by mouth twice d aily for 3 days, then 1 tablet daily for 3 days PREDNISONE 20 MG ORAL TA BLET 771862 PREDNISONE Inactive DIFLUCAN 100 MG ORAL TABLET 1 tablet by mouth daily 20 20/06/06 DIFLUCAN 100 MG ORAL TABLET 737746 FLUCONAZOLE Inactive BACTRIM DS 800-160 MG ORAL TABLET 1 tab by mouth twice daily 201 03/03/23 BACTRIM DS 800-160 MG ORAL TABLET 19830105 TRIMETHOPRIM-SULFAMETHOXAZOLE Inactive ZITHROMAX 250 MG ORAL TABLET 2 po today, then 1 po q days 2-5 20 15/02/10 ZITHROMAX 250 MG ORAL TABLET 075293 AZITHROMYCIN [place] ctive BACTRIM DS 800-160 MG ORAL TABLET [...] 20 19/03/05 DIFLUCAN 100 MG ORAL TABLET 936886 FLUCONAZOLE Inactive BACTRIM DS 800-160 MG ORAL TABLET 1 tab by mouth twice daily 201 05/10/28 BACTRIM DS 800-160 MG ORAL TABLET 226316 TRIMETHOPRIM-SULFAMETHOXAZOLE Inactive AMOXICILLIN 500 MG ORAL CAPSULE 1 cap by mouth three times a day AMOXICILLIN 500 MG ORAL CAPSULE 889211 AMOXICILLIN Inactive ZITHROMAX 250 MG ORAL TABLET 2 po today, then 1 po q days 2-5 20 20/04/28 ZITHROMAX 250 MG ORAL TABLET 714098 AZITHROMYCIN Mayela ctive DIFLUCAN 100 MG ORAL TABLET 1 tablet by mouth daily 20 20/05/01 DIFLUCAN 100 MG ORAL TABLET 207117 FLUCONAZOLE Inactive BACTRIM DS 800-160 MG ORAL TABLET 1 tab by mouth twice daily 201 06/09/02 BACTRIM DS 800-160 MG ORAL TABLET 032201 TRIMETHOPRIM-SULFAMETHOXAZOLE Inactive Advance Directives Directive Description Start Date PERMISSION TO SHARE DISCUSSED WITH PATIENT -- NO DECISION MADE DURABLE POWER OF MAINTENANCE PARTS TECHNICIAN FOR HEALTHCARE DISCUSED WITH PATIENT -- [...] sium - Chemistry sodium, serum 141 mmol/L 937-037 2016/01/26 carbon dioxide, venous blood 29.5 mmol/L 21.0-32 [...] dipstick Trace-lysed Negative sodium, serum 139 mmol/L 410-425 3525/11/07 carbon dioxide, venous blood 28.4 mmol/L 21.0-32 [...] mg/dL Encounters Code Encounter Date Provider Facility CPT-00066 [id number] Vst-Est Level IV 19:27:[address] Tesfaye Sherman MD [facility] CPT-46898 [id number] Vst-Est Level IV 10:41:41 C DT Tesfaye Sherman MD [facility] CPT-66046 [id number] Vst-Est Level III 09:40:56 CDT Tesfaye Sherman MD [facility] CPT-72775 Level 4 Est. Patient 22:18:12 CDT Tesfaye pearson MD [facility] CPT-98178 Level 4 Est. Patient 14:44:33 MAINTENANCE SHOP MANAGER Tesfaye pearson MD [facility] CPT-07721 Level 4 Est. Patient 13:55:29 MAINTENANCE SHOP MANAGER Tesfaye pearson MD [facility] CPT-88631 Level 4 Est. Patient 17:07:34 MAINTENANCE SHOP MANAGER Tesfaye pearson MD [facility] CPT-48079 Level 4 Est. Patient 13:56:54 CDT Tesfaye pearson MD [facility] CPT-66487 Level 4 Est. Patient 13:24:25 CDT Chelsea sanz APRN [facility] CPT-91361 Level 4 Est. Patient 09:14:56 CDT Tesfaye pearson MD [facility] CPT-72767 Level 4 Est. Patient 18:40:25 MAINTENANCE SHOP MANAGER Tesfaye pearson MD [facility]-24411 Level 4 Est. Patient 18:13:07 MAINTENANCE SHOP MANAGER Tesfaye pearson MD [facility]-43276 Level 3 Est. Patient 10:46:32 CDT Rj cotto DO [facility]-47565 Level 4 Est. Patient 20:19:25 CDT Tesfaye pearson MD [facility]-32530 Level 3 Est. Patient 09:07:31 CDT Tesfaye pearson MD [facility]-65694 Level 4 Est. Patient 13:12:56 CDT Tesfaye pearson MD [facility]-84777 Level 4 Est. Patient 21:24:55 MAINTENANCE SHOP MANAGER Tesfaye pearson MD [facility]-15007 Level 3 Est. Patient 13:45:04 MAINTENANCE SHOP MANAGER Tesfaye pearson MD [facility] CPT-41116 Level 4 Est. Patient 13:50:45 CDT Tesfaye pearson MD [facility]-40966 Level 3 Est. Patient 10:16:10 CDT Tesfaye pearson MD [facility] CPT-02455 Level 3 Est. Patient 16:36:07 MAINTENANCE SHOP MANAGER Kayla jameson MD [facility]-96593 Level 4 Est. Patient 16:00:14 MAINTENANCE SHOP MANAGER Tesfaye pearson MD [facility]-66053 Level 4 Est. Patient 11:02:24 MAINTENANCE SHOP MANAGER Tesfaye pearson MD [facility]-90312 Level 3 Est. Patient 20:21:43 MAINTENANCE SHOP MANAGER Kayla jameson MD [facility]-17251 Level 3 Est. Patient 13:27:28 MAINTENANCE SHOP MANAGER Kayla jameson MD [facility]-07247 Level 4 Est. Patient 15:57:17 MAINTENANCE SHOP MANAGER Tesfaye pearson MD [facility] CPT-94963 Level 3 New Patient 13:25:47 CDT Tesfaye kidd MD [facility] CPT-61404 Level 3 New Patient 17:22:21 CDT Kayla angel MD [facility] Procedures Code Procedure Name Date Entry Date Standard Desc ription CPT-G0439 Subsequent Annual Wellness Exam 22:18:11 CDT CPT-69173 Bone Density - XRAY USE ONLY 11:43:58 CDT 2 CPT-67689 Bone Density - XRAY USE ONLY 10:05:16 CDT 2 CPT-58862 Prv Med New Pt 40-64 yrs 18:19:25 CDT 2016 CPT-29208 Foot, right, comp min 3V - XRAY USE ONLY 10:38:34 CDT CPT-G0439 Subsequent Annual Wellness Exam 13:55:04 CDT CPT-G0438 Initial Annual Wellness Exam 11:23:17 CD T CPT-J2930 Solu Medrol 125 mg (Methyl Prednisolone Sodium Succinate) 17:29:12 MAINTENANCE SHOP MANAGER CPT-67487 Abx/Therapy Injection 17:29:11 MAINTENANCE SHOP MANAGER CPT-J2930 Solu Medrol 125 mg (Methyl Prednisolone Sodium Succinate) 12:34:38 MAINTENANCE SHOP MANAGER CPT-J3420 Vitamin B12 1000mcg (Cyanocobalamin) 09:12:55 CDT CPT-J3420 Vitamin B12 1000mcg (Cyanocobalamin) 16:28:06 MAINTENANCE SHOP MANAGER CPT-40226 Venipuncture Draw Fee 08:39:53 CDT CPT-J3420 Vitamin B12 1000mcg (Cyanocobalamin) 08:46:22 CDT CPT-78106 Abx/Therapy Injection 08:46:22 CDT CPT-J3420 Vitamin B12 1000mcg (Cyanocobalamin) 08:41:26 CDT CPT-04971 Abx/Therapy Injection 08:41:26 CDT CPT-J3420 Vitamin B12 1000mcg (Cyanocobalamin) 08:57:15 CDT CPT-30530 Abx/Therapy Injection 08:57:15 CDT CPT-J3420 Vitamin B12 1000mcg (Cyanocobalamin) 10:59:03 CDT CPT-23706 Abx/Therapy Injection 10:59:03 CDT CPT-J3420 Vitamin B12 1000mcg (Cyanocobalamin) 15:05:39 CDT CPT-34272 Abx/Therapy Injection 15:05:39 CDT CPT-J3420 Vitamin B12 1000mcg (Cyanocobalamin) 13:50:45 CDT CPT-J3420 Vitamin B12 1000mcg (Cyanocobalamin) 08:48:55 CDT CPT-55665 Abx/Therapy Injection 08:48:55 CDT CPT-J3420 Vitamin B12 1000mcg (Cyanocobalamin) 09:14:54 CDT CPT-12069 Abx/Therapy Injection 09:14:54 CDT CPT-J3420 Vitamin B12 1000mcg (Cyanocobalamin) 09:06:06 CDT CPT-02795 Abx/Therapy Injection 09:06:06 CDT CPT-J3420 Vitamin B12 1000mcg (Cyanocobalamin) 09:49:14 CDT CPT-43858 Abx/Therapy Injection 09:49:14 CDT CPT-J3420 Vitamin B12 1000mcg (Cyanocobalamin) 09:10:30 MAINTENANCE SHOP MANAGER CPT-34120 Abx/Therapy Injection 09:10:30 MAINTENANCE SHOP MANAGER CPT-J3420 Vitamin B12 1000mcg (Cyanocobalamin) 09:11:07 MAINTENANCE SHOP MANAGER CPT-62790 Abx/Therapy Injection 09:11:07 MAINTENANCE SHOP MANAGER CPT-J3420 Vitamin B12 1000mcg (Cyanocobalamin) 09:57:03 MAINTENANCE SHOP MANAGER CPT-50104 Abx/Therapy Injection 09:57:03 MAINTENANCE SHOP MANAGER CPT-J3420 Vitamin B12 1000mcg (Cyanocobalamin) 09:23:21 MAINTENANCE SHOP MANAGER CPT-51060 Abx/Therapy Injection 09:23:21 MAINTENANCE SHOP MANAGER CPT-71434 Urine Dip (Floor Use Only) 20:21:44 MAINTENANCE SHOP MANAGER 201 02/12/11 CPT-86524 UA Dip Auto (Floor Use Only) 10:04:39 MAINTENANCE SHOP MANAGER 2 CPT-63785 Urine Dip (Floor Use Only) 13:27:28 MAINTENANCE SHOP MANAGER 201 02/12/01 CPT-94338 Bladder Scan 13:27:28 MAINTENANCE SHOP MANAGER CPT-48667 Abd single AP View 14:30:51 MAINTENANCE SHOP MANAGER CPT-OV Office Visit 10:15:43 CDT CPT-30759 Urine Dip (Floor Use Only) 17:22:21 CDT 201 02/09/02 CPT-23694 Bladder Scan 17:22:21 CDT
--- OUTSIDE RECORDS SUMMARY | 2020-05-05 12:31 | XMS REPORT | Clinical Summary ---
Author Author Talon, Jeri Wood Organization [facility] Address Unknown Phone Unavailable Allergies, Adverse Reactions, [...] MD Abnormal involuntary movements Hyperlipidemia 272.4 Refinement Tesfaey Sherman MD Other and unspecified hyperlipidemia Mixed [...] Toe pain, right 729.5 Active Chelsea Cardenas SOLE SCRAPER Pain in limb Foot pain, right 729.5 Active Chelsea Cardenas SOLE SCRAPER Pain in limb Joint pain 719.40 Active Chelsea Cardenas SOLE SCRAPER Pain in joint, site unspecified Tobacco abuse [...] Tesfaye Sherman MD Long-term (current) drug use Medication List Medication Instructions Start Date Stop Date Generic Name NDC Status Provider Patient Instruction SUDAFED 12 HOUR 120 MG ORAL TABLET EXTENDED RELEASE 12 HOUR 1 pill twice daily if needed for congestion PSEUDOEPHEDRINE HCL [id number] A ctive Tesfaye Sherman MD Active ABILIFY 2 MG ORAL TABLET 1 by mouth daily. MARIA ELENA PIPRAZOLE [id number] Active Tesfaye Sherman MD Active CYMBALTA 60 MG ORAL CAPSULE DELAYED RELEASE PARTICLES 1 cap by mouth daily for pain DULOXETINE HCL 02937369959 Active Tesfaye Owusu Active DIFLUCAN 100 MG ORAL TABLET 1 tablet by mouth daily 20 20/06/06 FLUCONAZOLE 82406504766 No Longer Active Tesfaye Sherman MD Acti ve PREDNISONE 20 MG ORAL TABLET 1 tablet by mouth twice d aily for 3 days, then 1 tablet daily for 3 days PREDNISONE 82755355559 No L onger Active Tesfaye Sherman MD Active DIFLUCAN 100 MG ORAL TABLET 1 tablet by mouth daily FLUCONAZOLE 42673679152 Active Tesfaye Sherman MD Active BACTRIM DS 800-160 MG ORAL TABLET 1 tab by mouth twice daily 201 06/09/02 TRIMETHOPRIM-SULFAMETHOXAZOLE 85477764173 No Longer Active Fer Dominguez Active DIFLUCAN 100 MG ORAL TABLET 1 tablet by mouth daily 20 20/05/01 FLUCONAZOLE 92220767095 No Longer Active Tesfaye Sherman MD Acti ve ZITHROMAX 250 MG ORAL TABLET 2 po today, then 1 po q days 2-5 20 20/04/28 AZITHROMYCIN 10386900357 No Longer Active Tesfaye Sherman MD Active MECLIZINE HCL 25 MG ORAL TABLET one tab po qday prn dizziness 20 17/09/06 MECLIZINE HCL 48649933713 No Longer Active Tesfaye Sherman MD Active PROAIR HFA 108 (90 BASE) MCG/ACT INHALATION AEROSOL SO LUTION 1 puff every 6 hours as needed ALBUTEROL SULFATE 08875097331 No Long er Active Tesfaye Sherman MD Active OXYCODONE-ACETAMINOPHEN 5-325 MG ORAL TABLET Take one tablet by mouth every 6 hours as needed. Use sparingly OXYCODONE-ACETAMINOPHEN 32839268015 Active Tesfaye Sherman MD Active PREDNISONE 20 MG ORAL TABLET 1 tab twice daily for 3 d ay, then one daily for three days PREDNISONE 01782510057 No Longer Active Tesfaye Sherman MD Active MECLIZINE HCL 25 MG ORAL TABLET one 4 times a day as needed for dizziness MECLIZINE HCL 46493207557 Active Tesfaye Sherman MD Active AMOXICILLIN 500 MG ORAL CAPSULE 1 cap by mouth three times a day AMOXICILLIN 39859862305 No Longer Active Laurence Dominguez Acti ve VENLAFAXINE HCL 75 MG ORAL TABLET 1 am 1/2 at noon VENLAFAXINE HCL 31767719133 Active Tesfaye Sherman MD Active DIFLUCAN 100 MG ORAL TABLET 1 tablet by mouth daily 20 19/08/26 FLUCONAZOLE 95203413986 No Longer Active Tesfaye Sherman MD Acti ve BACTRIM DS 800-160 MG ORAL TABLET 1 tab by mouth twice daily 201 05/10/28 TRIMETHOPRIM-SULFAMETHOXAZOLE 84027696145 No Longer Active Fer Dominguez Active FOSAMAX 70 MG ORAL TABLET 1 po qweek. Take 30min prio r to first food/drink. Avoid lying down x 1 hour. ALENDRONATE SODIUM 34757509 144 No Longer Active Laurence Dominguez Active REPHRESH PRO-B ORAL CAPSULE 1 tablet daily LACT OBACILLUS 03898955291 Active Edith Burch MD Active CYMBALTA 60 MG ORAL CAPSULE DELAYED RELEASE PARTICLES Take 1 tablet by mouth daily DULOXETINE HCL 55483148537 No Longer Active Edith Burch MD Active CYMBALTA 30 MG ORAL CAPSULE DELAYED RELEASE PARTICLES 1 cap by mouth daily with 60mg DULOXETINE HCL 79505950527 No Longer Active Jordan Burch MD Active FISH OIL 1000 MG ORAL CAPSULE DELAYED RELEASE 1 pill b y mouth daily for cholesterol OMEGA-3 FATTY ACIDS 86537105130 Active Cee Jaffe LPN Active RED YEAST RICE 600 MG ORAL CAPSULE 1 pill by mouth daily RED YEAST RICE EXTRACT 76299983707 Active Rosa Jaffe LPN Activ e DIFLUCAN 100 MG ORAL TABLET 1 tablet by mouth daily 19/03/05 FLUCONAZOLE 14211447912 No Longer Active Tesfaye Sherman MD Acti ve BACTRIM DS 800-160 MG ORAL TABLET 1 tab by mouth twice daily 201 05/06/28 TRIMETHOPRIM-SULFAMETHOXAZOLE 83184150882 No Longer Active Umer Sherman MD Active BACTRIM DS 800-160 MG ORAL TABLET 1 tab by mouth twice daily 201 05/04/15 TRIMETHOPRIM-SULFAMETHOXAZOLE 11568068418 No Longer Active Umer Sherman MD Active DIFLUCAN 150 MG ORAL TABLET 1 tablet by mouth daily 20 18/09/20 FLUCONAZOLE 72771823423 No Longer Active Tesfaye Sherman MD Acti ve BACTRIM DS 800-160 MG ORAL TABLET 1 tab by mouth twice daily 201 04/13/17 TRIMETHOPRIM-SULFAMETHOXAZOLE 45453804820 No Longer Active Umer Sherman MD Active ROPINIROLE HCL 0.25 MG ORAL TABLET 1 TAB PO Q HS ROPINIROLE HCL 62544289990 Active Tesfaye Sherman MD Active CEFTIN 250 MG ORAL TABLET 1 tablet twice daily x 7 days CEFUROXIME AXETIL 55408134723 No Longer Active Tesfaye Sherman MD Active DIFLUCAN 100 MG ORAL TABLET 1 tablet by mouth every other da y for 2 doses FLUCONAZOLE 49249310688 No Longer Active Tesfaye barron MD Active DIFLUCAN 100 MG ORAL TABLET 1 tablet by mouth daily X 3 DAYS 201 04/09/01 FLUCONAZOLE 36651259048 No Longer Active Rj Moss DO Ac tive MIRTAZAPINE 15 MG ORAL TABLET 1/2 tab by mouth at bedtime. 03/13 MIRTAZAPINE 07963840909 No Longer Active Tesfaye Sherman MD Active BACTRIM DS 800-160 MG ORAL TABLET 1 tab by mouth twice daily 201 04/09/01 TRIMETHOPRIM-SULFAMETHOXAZOLE 88678612735 No Longer Active Umer Sherman MD Active PRAMIPEXOLE DIHYDROCHLORIDE 0.125 MG ORAL TABLET take 1 tablet po qhs for restless leg syndrome. PRAMIPEXOLE DIHYDROCHLORI DE 17892283991 No Longer Active Tesfaye Sherman MD Active MAGNESIUM 400 MG ORAL TABLET 1 tab po daily MAGNE SIUM 11098249754 Active Chelsea Cardenas APRN Active SUDAFED 24 HOUR 240 MG ORAL TABLET EXTENDED RELEASE 24 HOUR 1 tab po daily PSEUDOEPHEDRINE HCL 74107326322 Active Chelsea Cardenas APRN Active CETIRIZINE HCL 5 MG ORAL TABLET Take 1 tablet by mouth daily CETIRIZINE HCL 53385715573 No Longer Active Chelsea Cardenas APRN Activ e TRIMETHOPRIM 100 MG ORAL TABLET 1/2 qd TRIM ETHOPRIM 35367632290 No Longer Active Chelsea Cardenas APRN Active BACTRIM DS 800-160 MG ORAL TABLET 1 tab by mouth twice daily 201 04/04/11 TRIMETHOPRIM-SULFAMETHOXAZOLE 23045115559 No Longer Active Umer Sherman MD Active BACTRIM DS 800-160 MG ORAL TABLET 1 tab by mouth twice daily X 10 DAYS TRIMETHOPRIM-SULFAMETHOXAZOLE 45905687777 No Longer Active Tesfaye Sherman MD Active AMOXICILLIN 500 MG ORAL CAPSULE 1 cap by mouth three times a day AMOXICILLIN 03244405148 No Longer Active Adriana Arnulfo Active B-12 1000 MCG ORAL LOZENGE 1 tab po daily CYANO COBALAMIN 19446397501 Active Tesfaye Sherman MD Active VITAMIN D3 2000 UNIT ORAL TABLET 1 daily, for vitamin D deficien cy CHOLECALCIFEROL 46486441898 No Longer Active Tesfaye Sherman MD Active TIZANIDINE HCL 2 MG ORAL TABLET take 1-2 tablet by mo ut every day at bedtime at 9pm PRN TIZANIDINE HCL 22993299373 Active Tesfaye hewitt MD Active ZITHROMAX 250 MG ORAL TABLET 2 po today, then 1 po q days 2-5 20 15/02/10 AZITHROMYCIN 86296016584 No Longer Active Tesfaye Sherman MD Active BACTRIM DS 800-160 MG ORAL TABLET 1 tab by mouth twice daily 201 03/03/23 TRIMETHOPRIM-SULFAMETHOXAZOLE 93878841069 No Longer Active Umer Sherman MD Active PRELIEF 340 (65-50) MG (CA-P) ORAL TABLET CALCIUM GLYCEROPHOSPHATE 27969520033 Active Tesfaye Sherman MD Acti ve [facility] NIACIN FLUSH FREE 400-100 MG ORAL CAPSULE 1 daily NIACIN-INOSITOL 04443779962 Active Kayla Cooper MD Activ e DIFLUCAN 150 MG ORAL TABLET 1 qd FLUCONAZOL E 38059210530 No Longer Active Kayla Cooper MD Active FLUTICASONE PROPIONATE 50 MCG/ACT NASAL SUSPENSION 1 spray each nostril twice daily FLUTICASONE PROPIONATE 69673339130 Active Umer Sherman MD Active LOVASTATIN 20 MG ORAL TABLET Take 1 tablet by mouth daily LOVASTATIN 58797890116 No Longer Active Tesfaye Sherman MD Acti ve MELOXICAM 7.5 MG ORAL TABLET 1 tablet by mouth daily 2 MELOXICAM 86953081419 No Longer Active Tesfaye Sherman MD Acti ve GABAPENTIN 300 MG ORAL CAPSULE Take two tablets by mouth every e vening GABAPENTIN 51171681613 No Longer Active Edith Burch MD A ctive CLONAZEPAM 0.5 MG ORAL TABLET Take one tablet in the m orning and 1.5 tablet at 7pm CLONAZEPAM 64933614550 Active Kayla Cooper MD Active BACLOFEN 10 MG ORAL TABLET Take one tablet by mouth three times a d ay BACLOFEN 15872883278 Active Kayla Cooper MD Active GABAPENTIN 300 MG ORAL CAPSULE Take two tablets by mouth every e vening GABAPENTIN 300 MG ORAL CAPSULE 775830 GABAPENTIN I nactive MELOXICAM 7.5 MG ORAL TABLET 1 tablet by mouth daily 2 MELOXICAM 7.5 MG ORAL TABLET 926008 MELOXICAM Inactive LOVASTATIN 20 MG ORAL TABLET Take 1 tablet by mouth daily LOVASTATIN 20 MG ORAL TABLET 268372 LOVASTATIN Inactive DIFLUCAN 150 MG ORAL TABLET 1 qd DIFLUCAN 150 MG ORAL TABLET 477248 FLUCONAZOLE Inactive VITAMIN D3 2000 UNIT ORAL TABLET 1 daily, for vitamin D deficien cy VITAMIN D3 2000 UNIT ORAL TABLET CHOLECALCIFEROL Inactive AMOXICILLIN 500 MG ORAL CAPSULE 1 cap by mouth three times a day AMOXICILLIN 500 MG ORAL CAPSULE 100061 AMOXICILLIN Inactive BACTRIM DS 800-160 MG ORAL TABLET 1 tab by mouth twice daily X 10 DAYS BACTRIM DS 800-160 MG ORAL TABLET 259673 TRIMETHOPRIM-SULFAMETHOXAZOLE Inactive TRIMETHOPRIM 100 MG ORAL TABLET 1/2 qd 7 TRIMETHOPRIM 100 MG ORAL TABLET 031363 TRIMETHOPRIM Inactive CETIRIZINE HCL 5 MG ORAL TABLET Take 1 tablet by mouth daily CETIRIZINE HCL 5 MG ORAL TABLET 6125326 CETIRIZINE HCL Inactive PRAMIPEXOLE DIHYDROCHLORIDE 0.125 MG ORAL TABLET take 1 tablet po qhs for restless leg syndrome. PRAMIPEXOLE DIHYD ROCHLORIDE 0.125 MG ORAL TABLET 411168 PRAMIPEXOLE DIHYDROCHLORIDE Inactive MIRTAZAPINE 15 MG ORAL TABLET 1/2 tab by mouth at bedtime. 03/13 MIRTAZAPINE 15 MG ORAL TABLET 429971 MIRTAZAPINE In active DIFLUCAN 100 MG ORAL TABLET 1 tablet by mouth daily X 3 DAYS 201 04/09/01 DIFLUCAN 100 MG ORAL TABLET 146798 FLUCONAZOLE Inac tive DIFLUCAN 100 MG ORAL TABLET 1 tablet by mouth every other da y for 2 doses DIFLUCAN 100 MG ORAL TABLET 981058 FLUCONAZOLE Inactive CEFTIN 250 MG ORAL TABLET 1 tablet twice daily x 7 days CEFTIN 250 MG ORAL TABLET CEFUROXIME AXETIL Inactive CYMBALTA 30 MG ORAL CAPSULE DELAYED RELEASE PARTICLES 1 cap by mouth daily with 60mg CYMBALTA 30 MG ORAL CAPSULE DELAYED RELEASE PARTICLES 738612 DULOXETINE HCL Inactive CYMBALTA 60 MG ORAL CAPSULE DELAYED RELEASE PARTICLES Take 1 tablet by mouth daily CYMBALTA 60 MG ORAL CAPSULE DELAYED RELEA SE PARTICLES 555238 DULOXETINE HCL Inactive FOSAMAX 70 MG ORAL TABLET 1 po qweek. Take 30min prio r to first food/drink. Avoid lying down x 1 hour. FOSAMAX 70 MG ORAL TA BLET 518459 ALENDRONATE SODIUM Inactive DIFLUCAN 100 MG ORAL TABLET 1 tablet by mouth daily 20 19/08/26 DIFLUCAN 100 MG ORAL TABLET 528535 FLUCONAZOLE Inactive PREDNISONE 20 MG ORAL TABLET 1 tab twice daily for 3 d ay, then one daily for three days PREDNISONE 20 MG ORAL TABLET 139417 PREDNIS ONE Inactive PROAIR HFA 108 (90 BASE) MCG/ACT INHALATION AEROSOL SO LUTION 1 puff every 6 hours as needed PROAIR HFA 108 (90 B ASE) MCG/ACT INHALATION AEROSOL SOLUTION ALBUTEROL SULFATE Inactive MECLIZINE HCL 25 MG ORAL TABLET one tab po qday prn dizziness 20 17/09/06 MECLIZINE HCL 25 MG ORAL TABLET 099878 MECLIZINE HCL Inactive PREDNISONE 20 MG ORAL TABLET 1 tablet by mouth twice d aily for 3 days, then 1 tablet daily for 3 days PREDNISONE 20 MG ORAL TA BLET 452664 PREDNISONE Inactive DIFLUCAN 100 MG ORAL TABLET 1 tablet by mouth daily 20 20/06/06 DIFLUCAN 100 MG ORAL TABLET 240019 FLUCONAZOLE Inactive BACTRIM DS 800-160 MG ORAL TABLET 1 tab by mouth twice daily 201 03/03/23 BACTRIM DS 800-160 MG ORAL TABLET 542570 TRIMETHOPRIM-SULFAMETHOXAZOLE Inactive ZITHROMAX 250 MG ORAL TABLET 2 po today, then 1 po q days 2-5 20 15/02/10 ZITHROMAX 250 MG ORAL TABLET 430903 AZITHROMYCIN Mayela ctive BACTRIM DS 800-160 MG ORAL TABLET 1 tab by mouth twice daily 201 04/04/11 BACTRIM DS 800-160 MG ORAL TABLET 234621 TRIMETHOPRIM-SULFAMETHOXAZOLE Inactive BACTRIM DS 800-160 MG ORAL TABLET 1 tab by mouth twice daily 201 04/09/01 BACTRIM DS 800-160 MG ORAL TABLET 659588 TRIMETHOPRIM-SULFAMETHOXAZOLE Inactive BACTRIM DS 800-160 MG ORAL TABLET 1 tab by mouth twice daily 201 04/13/17 BACTRIM DS 800-160 MG ORAL TABLET 672732 TRIMETHOPRIM-SULFAMETHOXAZOLE Inactive DIFLUCAN 150 MG ORAL TABLET 1 tablet by mouth daily 20 18/09/20 DIFLUCAN 150 MG ORAL TABLET 19760712 FLUCONAZOLE Inactive BACTRIM DS 800-160 MG ORAL TABLET 1 tab by mouth twice daily 201 05/04/15 BACTRIM DS 800-160 MG ORAL TABLET 651324 TRIMETHOPRIM-SULFAMETHOXAZOLE Inactive BACTRIM DS 800-160 MG ORAL TABLET 1 tab by mouth twice daily 201 05/06/28 BACTRIM DS 800-160 MG ORAL TABLET 621179 TRIMETHOPRIM-SULFAMETHOXAZOLE Inactive DIFLUCAN 100 MG ORAL TABLET 1 tablet by mouth daily 20 19/03/05 DIFLUCAN 100 MG ORAL TABLET 19760711 FLUCONAZOLE Inactive BACTRIM DS 800-160 MG ORAL TABLET 1 tab by mouth twice daily 201 05/10/28 BACTRIM DS 800-160 MG ORAL TABLET 431336 TRIMETHOPRIM-SULFAMETHOXAZOLE Inactive AMOXICILLIN 500 MG ORAL CAPSULE 1 cap by mouth three times a day AMOXICILLIN 500 MG ORAL CAPSULE 873661 AMOXICILLIN Inactive ZITHROMAX 250 MG ORAL TABLET 2 po today, then 1 po q days 2-5 20 20/04/28 ZITHROMAX 250 MG ORAL TABLET 641390 AZITHROMYCIN Mayela ctive DIFLUCAN 100 MG ORAL TABLET 1 tablet by mouth daily 20 20/05/01 DIFLUCAN 100 MG ORAL TABLET 156631 FLUCONAZOLE Inactive BACTRIM DS 800-160 MG ORAL TABLET 1 tab by mouth twice daily 201 06/09/02 BACTRIM DS 800-160 MG ORAL TABLET 982311 TRIMETHOPRIM-SULFAMETHOXAZOLE Inactive Advance Directives Directive Description Start Date PERMISSION TO SHARE DISCUSSED WITH PATIENT -- NO DECISION MADE DURABLE POWER OF MOTORCYCLE FABRICATOR FOR HEALTHCARE DISCUSED WITH PATIENT -- FULL [...] sium - Chemistry sodium, serum 141 mmol/L 682-795 5184/01/26 carbon dioxide, venous blood 29.5 mmol/L 21.0-32 [...] dipstick Trace-lysed Negative sodium, serum 139 mmol/L 155-890 3960/11/07 carbon dioxide, venous blood 28.4 mmol/L 21.0-32 [...] mg/dL Encounters Code Encounter Date Provider Facility CPT-81543 [id number] Vst-Est Level IV 10:41:41 C DT Tesfaye Sherman MD [facility]-94733 [id number] Vst-Est Level III 09:40:56 CDT Tesfaye Sherman MD [facility]-56161 Level 4 Est. Patient 22:18:12 CDT Tesfaye pearson MD [facility]-38639 Level 4 Est. Patient 14:44:33 SPANISH LANGUAGE [employer]ER Tesfaye pearson MD [facility] CPT-58564 Level 4 Est. Patient 13:55:29 SPANISH LANGUAGE L[employer]ER Tesfaye pearson MD [facility]-91251 Level 4 Est. Patient 17:07:34 SPANISH LANGUAGE L[employer]ER Tesfaye pearson MD [facility]-14677 Level 4 Est. Patient 13:56:54 CDT Tesfaye pearson MD [facility]-23389 Level 4 Est. Patient 13:24:25 CDT Chelsea sanz APRN [facility] CPT-47575 Level 4 Est. Patient 09:14:56 CDT Tesfaye pearson MD [facility]-97517 Level 4 Est. Patient 18:40:25 SPANISH LANGUAGE L[employer]ER Tesfyae pearson MD [facility] CPT-78635 Level 4 Est. Patient 18:13:07 SPANISH LANGUAGE [employer]ER Tesfaye pearson MD [facility] CPT-53455 Level 3 Est. Patient 10:46:32 CDT Rj cotto DO [facility] CPT-90382 Level 4 Est. Patient 20:19:25 CDT Tesfaye pearson MD [facility]-46552 Level 3 Est. Patient 09:07:31 CDT Tesfaye pearson MD [facility]-05147 Level 4 Est. Patient 13:12:56 CDT Tesfaye pearson MD [facility]-07227 Level 4 Est. Patient 21:24:55 SPANISH LANGUAGE L[employer]ER Tesfaye pearson MD [facility] CPT-19182 Level 3 Est. Patient 13:45:04 SPANISH LANGUAGE L[employer]URER Tesfaye pearson MD [facility] CPT-68428 Level 4 Est. Patient 13:50:45 CDT Tesfaye pearson MD [facility] CPT-69806 Level 3 Est. Patient 10:16:10 CDT Tesfaye pearson MD [facility] CPT-08669 Level 3 Est. Patient 16:36:07 SPANISH LANGUAGE L[employer]ER Kayla jameson MD [facility] CPT-82692 Level 4 Est. Patient 16:00:14 SPANISH LANGUAGE L[employer]ER Tesfaye pearson MD [facility] CPT-61625 Level 4 Est. Patient 11:02:24 SPANISH LANGUAGE L[employer]ER Tesfaye pearson MD [facility] CPT-24654 Level 3 Est. Patient 20:21:43 SPANISH LANGUAGE L[employer]ER Kayla jameson MD [facility] CPT-08625 Level 3 Est. Patient 13:27:28 SPANISH LANGUAGE L[employer]ER Kayla jameson MD [facility] CPT-75504 Level 4 Est. Patient 15:57:17 SPANISH LANGUAGE [employer]ER Tesfaye pearson MD [facility] CPT-46215 Level 3 New Patient 13:25:47 CDT Tesfaye kidd MD [facility] CPT-76143 Level 3 New Patient 17:22:21 CDT Kayla angel MD [facility] Procedures Code Procedure Name Date Entry Date Standard Desc ription CPT-G0439 [facility] Annual Wellness Exam 22:18:11 CDT CPT-62199 Bone Density - XRAY USE ONLY 11:43:58 CDT 2 CPT-76728 Bone Density - XRAY USE ONLY 10:05:16 CDT 2 CPT-67632 Prv Med New Pt 40-64 yrs 18:19:25 CDT 2016 CPT-50308 Foot, right, comp min 3V - XRAY USE ONLY 10:38:34 CDT CPT-G0439 Subsequent Annual Wellness Exam 13:55:04 CDT CPT-G0438 Initial Annual Wellness Exam 11:23:17 CD T CPT-J2930 Solu Medrol 125 mg (Methyl Prednisolone Sodium Succinate) 17:29:12 [employer]ISH [employer]AGE [employer]ER CPT-05418 Abx/Therapy Injection 17:29:11 SPANISH [employer]ANGUAGE [employer]ER CPT-J2930 Solu Medrol 125 mg (Methyl Prednisolone Sodium Succinate) 12:34:38 SP[employer]ISH [employer]UAGE [employer]ER CPT-J3420 Vitamin B12 1000mcg (Cyanocobalamin) 09:12:55 CDT CPT-J3420 Vitamin B12 1000mcg (Cyanocobalamin) 16:28:06 [employer]ISH [employer]UAGE [employer]ER CPT-01437 Venipuncture Draw Fee 08:39:53 CDT CPT-J3420 Vitamin B12 1000mcg (Cyanocobalamin) 08:46:22 CDT CPT-46719 Abx/Therapy Injection 08:46:22 CDT CPT-J3420 Vitamin B12 1000mcg (Cyanocobalamin) 08:41:26 CDT CPT-59645 Abx/Therapy Injection 08:41:26 CDT CPT-J3420 Vitamin B12 1000mcg (Cyanocobalamin) 08:57:15 CDT CPT-04547 Abx/Therapy Injection 08:57:15 CDT CPT-J3420 Vitamin B12 1000mcg (Cyanocobalamin) 10:59:03 CDT CPT-15320 Abx/Therapy Injection 10:59:03 CDT CPT-J3420 Vitamin B12 1000mcg (Cyanocobalamin) 15:05:39 CDT CPT-84099 Abx/Therapy Injection 15:05:39 CDT CPT-J3420 Vitamin B12 1000mcg (Cyanocobalamin) 13:50:45 CDT CPT-J3420 Vitamin B12 1000mcg (Cyanocobalamin) 08:48:55 CDT CPT-03265 Abx/Therapy Injection 08:48:55 CDT CPT-J3420 Vitamin B12 1000mcg (Cyanocobalamin) 09:14:54 CDT CPT-99185 Abx/Therapy Injection 09:14:54 CDT CPT-J3420 Vitamin B12 1000mcg (Cyanocobalamin) 09:06:06 CDT CPT-99952 Abx/Therapy Injection 09:06:06 CDT CPT-J3420 Vitamin B12 1000mcg (Cyanocobalamin) 09:49:14 CDT CPT-82548 Abx/Therapy Injection 09:49:14 CDT CPT-J3420 Vitamin B12 1000mcg (Cyanocobalamin) 09:10:30 [employer]ISH [employer]AGE [employer] CPT-24979 Abx/Therapy Injection 09:10:30 SPANISH LANGUAGE [employer]ER CPT-J3420 Vitamin B12 1000mcg (Cyanocobalamin) 09:11:07 SPANISH LANGUAGE [employer]ER CPT-79671 Abx/Therapy Injection 09:11:07 SPANISH LANGUAGE L[employer]ER CPT-J3420 Vitamin B12 1000mcg (Cyanocobalamin) 09:57:03 SPANISH LANGUAGE L[employer]ER CPT-57935 Abx/Therapy Injection 09:57:03 SPANISH LANGUAGE [employer]ER CPT-J3420 Vitamin B12 1000mcg (Cyanocobalamin) 09:23:21 SPANISH LANGUAGE [employer]ER CPT-66016 Abx/Therapy Injection 09:23:21 SPANISH LANGUAGE [employer]ER CPT-51253 Urine Dip (Floor Use Only) 20:21:44 SP[employer]ISH [employer]ANGUAGE [employer]ER 201 02/12/11 CPT-26897 UA Dip Auto (Floor Use Only) 10:04:39 SP[employer]ISH [employer]ANGUAGE [employer]ER 2 CPT-78461 Urine Dip (Floor Use Only) 13:27:28 [employer]ISH [employer]ANGUAGE [employer]ER 201 02/12/01 CPT-71215 Bladder Scan 13:27:28 [employer]ISH [employer]ANGUAGE [employer]ER CPT-52806 Abd single AP View 14:30:51 [employer]ISH LANG[employer]AGE [employer]ER CPT-OV Office Visit 10:15:43 CDT CPT-25945 Urine Dip (Floor Use Only) 17:22:21 CDT 201 02/09/02 CPT-12556 Bladder Scan 17:22:21 CDT
--- OUTSIDE RECORDS SUMMARY | 2020-05-05 12:32 | XMS REPORT | Clinical Summary ---
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 in limb Joint pain 719.40 Active [...] Sherman MD Rheumatoid arthritis Vertigo 780.4 Active Tesfaey Sherman MD Dizziness and giddiness Medication List Medication Instructions Start Date Stop Date Generic Name NDC Status Provider Patient Instruction CYMBALTA 60 MG ORAL CAPSULE DELAYED RELEASE PARTICLES 1 cap by mouth daily for pain DULOXETINE HCL 78929877477 Active Tesfaye Owusu Active DIFLUCAN 100 MG ORAL TABLET 1 tablet by mouth daily 20 20/06/06 FLUCONAZOLE 45442827151 No Longer Active Tesfaye Sherman MD Acti ve PREDNISONE 20 MG ORAL TABLET 1 tablet by mouth twice d aily for 3 days, then 1 tablet daily for 3 days PREDNISONE 07101397600 No L onger Active Tesfaye Sherman MD Active DIFLUCAN 100 MG ORAL TABLET 1 tablet by mouth daily FLUCONAZOLE 83657174241 Active Laurence Lopezduyen Active BACTRIM DS 800-160 MG ORAL TABLET 1 tab by mouth twice daily 201 06/09/02 TRIMETHOPRIM-SULFAMETHOXAZOLE 31520216190 No Longer Active A mirna Dominguez Active DIFLUCAN 100 MG ORAL TABLET 1 tablet by mouth daily 20 20/05/01 FLUCONAZOLE 64984938941 No Longer Active Tesfaye Sherman MD Acti ve ZITHROMAX 250 MG ORAL TABLET 2 po today, then 1 po q days 2-5 20 20/04/28 AZITHROMYCIN 45631706841 No Longer Active Tesfaye Sherman MD Active MECLIZINE HCL 25 MG ORAL TABLET one tab po qday prn dizziness 20 17/09/06 MECLIZINE HCL 85978979413 No Longer Active Tesfaye Sherman MD Active PROAIR HFA 108 (90 BASE) MCG/ACT INHALATION AEROSOL SO LUTION 1 puff every 6 hours as needed ALBUTEROL SULFATE 40203983703 No Long er Active Tesfaye Sherman MD Active OXYCODONE-ACETAMINOPHEN 5-325 MG ORAL TABLET Take one tablet by mouth every 6 hours as needed. Use sparingly OXYCODONE-ACETAMINOPHEN 75345683716 Active Tesfaye Sherman MD Active PREDNISONE 20 MG ORAL TABLET 1 tab twice daily for 3 d ay, then one daily for three days PREDNISONE 26199262981 No Longer Active Tesfaye Sherman MD Active MECLIZINE HCL 25 MG ORAL TABLET one 4 times a day as needed for dizziness MECLIZINE HCL 70613027642 Active Laurence Dominguez Active AMOXICILLIN 500 MG ORAL CAPSULE 1 cap by mouth three times a day AMOXICILLIN 88200764544 No Longer Active Laurence Dominguez Acti ve VENLAFAXINE HCL 75 MG ORAL TABLET 1 am 1/2 at noon VENLAFAXINE HCL 94627512210 Active Tesfaye Sherman MD Active DIFLUCAN 100 MG ORAL TABLET 1 tablet by mouth daily 20 19/08/26 FLUCONAZOLE 48809004291 No Longer Active Tesfaye Sherman MD Acti ve BACTRIM DS 800-160 MG ORAL TABLET 1 tab by mouth twice daily 201 05/10/28 TRIMETHOPRIM-SULFAMETHOXAZOLE 47678562190 No Longer Active Fer Dominguez Active FOSAMAX 70 MG ORAL TABLET 1 po qweek. Take 30min prio r to first food/drink. Avoid lying down x 1 hour. ALENDRONATE SODIUM 44835331 144 No Longer Active Laurence Dominguez Active REPHRESH PRO-B ORAL CAPSULE 1 tablet daily LACT OBACILLUS 65853154810 Active Edith Burch MD Active CYMBALTA 60 MG ORAL CAPSULE DELAYED RELEASE PARTICLES Take 1 tablet by mouth daily DULOXETINE HCL 63967739032 No Longer Active Edith Burch MD Active CYMBALTA 30 MG ORAL CAPSULE DELAYED RELEASE PARTICLES 1 cap by mouth daily with 60mg DULOXETINE HCL 47302949561 No Longer Active Jordan Burch MD Active FISH OIL 1000 MG ORAL CAPSULE DELAYED RELEASE 1 pill b y mouth daily for cholesterol OMEGA-3 FATTY ACIDS 05638936769 Active Cee Jaffe LPN Active RED YEAST RICE 600 MG ORAL CAPSULE 1 pill by mouth daily RED YEAST RICE EXTRACT 55010396847 Active Rosa Jaffe LPN Activ e DIFLUCAN 100 MG ORAL TABLET 1 tablet by mouth daily 19/03/05 FLUCONAZOLE 63464625020 No Longer Active Tesfaye Sherman MD Acti ve BACTRIM DS 800-160 MG ORAL TABLET 1 tab by mouth twice daily 201 05/06/28 TRIMETHOPRIM-SULFAMETHOXAZOLE 33819071491 No Longer Active Umer Sherman MD Active BACTRIM DS 800-160 MG ORAL TABLET 1 tab by mouth twice daily 201 05/04/15 TRIMETHOPRIM-SULFAMETHOXAZOLE 40492492534 No Longer Active Umer Sherman MD Active DIFLUCAN 150 MG ORAL TABLET 1 tablet by mouth daily 20 18/09/20 FLUCONAZOLE 46387525331 No Longer Active Tesfaye Sherman MD Acti ve BACTRIM DS 800-160 MG ORAL TABLET 1 tab by mouth twice daily 201 04/13/17 TRIMETHOPRIM-SULFAMETHOXAZOLE 21542057540 No Longer Active Umer Sherman MD Active ROPINIROLE HCL 0.25 MG ORAL TABLET 1 TAB PO Q HS ROPINIROLE HCL 28436002666 Active Tesfaye Sherman MD Active CEFTIN 250 MG ORAL TABLET 1 tablet twice daily x 7 days CEFUROXIME AXETIL 46008525989 No Longer Active Tesfaye Sherman MD Active DIFLUCAN 100 MG ORAL TABLET 1 tablet by mouth every other da y for 2 doses FLUCONAZOLE 19526593950 No Longer Active Tesfaye barron MD Active DIFLUCAN 100 MG ORAL TABLET 1 tablet by mouth daily X 3 DAYS 201 04/09/01 FLUCONAZOLE 31653107510 No Longer Active Rj Lyons tidragan MIRTAZAPINE 15 MG ORAL TABLET 1/2 tab by mouth at bedtime. 03/13 MIRTAZAPINE 43375185747 No Longer Active Tesfaye Sherman MD Active BACTRIM DS 800-160 MG ORAL TABLET 1 tab by mouth twice daily 201 04/09/01 TRIMETHOPRIM-SULFAMETHOXAZOLE 70870328116 No Longer Active Umer Sherman MD Active PRAMIPEXOLE DIHYDROCHLORIDE 0.125 MG ORAL TABLET take 1 tablet po qhs for restless leg syndrome. PRAMIPEXOLE DIHYDROCHLORI DE 78251861772 No Longer Active Tesfaye Sherman MD Active MAGNESIUM 400 MG ORAL TABLET 1 tab po daily MAGNE SIUM 12835554055 Active Chelsea Arell CAKE TESTER Active SUDAFED 24 HOUR 240 MG ORAL TABLET EXTENDED RELEASE 24 HOUR 1 tab po daily PSEUDOEPHEDRINE HCL 59448987206 Active Chelsea Arell CAKE TESTER Active CETIRIZINE HCL 5 MG ORAL TABLET Take 1 tablet by mouth daily CETIRIZINE HCL 47135261459 No Longer Active Chelsea Cardenas APRN Activ e TRIMETHOPRIM 100 MG ORAL TABLET 1/2 qd TRIM ETHOPRIM 94610311435 No Longer Active Chelsea Cardenas APRN Active BACTRIM DS 800-160 MG ORAL TABLET 1 tab by mouth twice daily 201 04/04/11 TRIMETHOPRIM-SULFAMETHOXAZOLE 08698315809 No Longer Active Umer Sherman MD Active BACTRIM DS 800-160 MG ORAL TABLET 1 tab by mouth twice daily X 10 DAYS TRIMETHOPRIM-SULFAMETHOXAZOLE 86025360246 No Longer Active Tesfaye Sherman MD Active AMOXICILLIN 500 MG ORAL CAPSULE 1 cap by mouth three times a day AMOXICILLIN 37285151040 No Longer Active Adriana Arredondo Active B-12 1000 MCG ORAL LOZENGE 1 tab po daily CYANO COBALAMIN 05393220439 Active Tesfaye Sherman MD Active VITAMIN D3 2000 UNIT ORAL TABLET 1 daily, for vitamin D deficien cy CHOLECALCIFEROL 51318871713 No Longer Active Tesfaye Sherman MD Active TIZANIDINE HCL 2 MG ORAL TABLET take 1-2 tablet by mo [facility] every day at bedtime at 9pm PRN TIZANIDINE HCL 37898787908 Active Tesfaye hewitt MD Active ZITHROMAX 250 MG ORAL TABLET 2 po today, then 1 po q days 2-5 20 15/02/10 AZITHROMYCIN 02733100178 No Longer Active Tesfaye Sherman MD Active BACTRIM DS 800-160 MG ORAL TABLET 1 tab by mouth twice daily 201 03/03/23 TRIMETHOPRIM-SULFAMETHOXAZOLE 82380566673 No Longer Active Umer Sherman MD Active PRELIEF 340 (65-50) MG (CA-P) ORAL TABLET CALCIUM GLYCEROPHOSPHATE 56557978574 Active Tesfaye Sherman MD Acti ve [facility] NIACIN FLUSH FREE 400-100 MG ORAL CAPSULE 1 daily NIACIN-INOSITOL 95864958744 Active Kayla Cooper MD Activ e DIFLUCAN 150 MG ORAL TABLET 1 qd FLUCONAZOL E 75928358720 No Longer Active Kayla Cooper MD Active FLUTICASONE PROPIONATE 50 MCG/ACT NASAL SUSPENSION 1 spray each nostril twice daily FLUTICASONE PROPIONATE 51638366920 Active Umer Sherman MD Active LOVASTATIN 20 MG ORAL TABLET Take 1 tablet by mouth daily LOVASTATIN 45769674259 No Longer Active Tesfaye Sherman MD Acti ve MELOXICAM 7.5 MG ORAL TABLET 1 tablet by mouth daily 2 MELOXICAM 72275597750 No Longer Active Tesfaye Sherman MD Acti ve GABAPENTIN 300 MG ORAL CAPSULE Take two tablets by mouth every e vening GABAPENTIN 54296861990 No Longer Active Edith Burch MD A ctive CLONAZEPAM 0.5 MG ORAL TABLET Take one tablet in the orning and 1.5 tablet at 7pm CLONAZEPAM 46913346740 Active Kayla Cooper MD Active BACLOFEN 10 MG ORAL TABLET Take one tablet by mouth three times a d ay BACLOFEN 44856775091 Active Kayla Cooper MD Active GABAPENTIN 300 MG ORAL CAPSULE Take two tablets by mouth every e vening GABAPENTIN 300 MG ORAL CAPSULE 226449 GABAPENTIN I nactive MELOXICAM 7.5 MG ORAL TABLET 1 tablet by mouth daily 2 MELOXICAM 7.5 MG ORAL TABLET 994237 MELOXICAM Inactive LOVASTATIN 20 MG ORAL TABLET Take 1 tablet by mouth daily LOVASTATIN 20 MG ORAL TABLET 646555 LOVASTATIN Inactive DIFLUCAN 150 MG ORAL TABLET 1 qd DIFLUCAN 150 MG ORAL TABLET 615700 FLUCONAZOLE Inactive VITAMIN D3 2000 UNIT ORAL TABLET 1 daily, for vitamin D deficien cy VITAMIN D3 2000 UNIT ORAL TABLET CHOLECALCIFEROL Inactive AMOXICILLIN 500 MG ORAL CAPSULE 1 cap by mouth three times a day AMOXICILLIN 500 MG ORAL CAPSULE 437164 AMOXICILLIN Inactive BACTRIM DS 800-160 MG ORAL TABLET 1 tab by mouth twice daily X 10 DAYS BACTRIM DS 800-160 MG ORAL TABLET 401201 TRIMETHOPRIM-SULFAMETHOXAZOLE Inactive TRIMETHOPRIM 100 MG ORAL TABLET 1/2 qd 7 TRIMETHOPRIM 100 MG ORAL TABLET 401119 TRIMETHOPRIM Inactive CETIRIZINE HCL 5 MG ORAL TABLET Take 1 tablet by mouth daily CETIRIZINE HCL 5 MG ORAL TABLET 9223053 CETIRIZINE HCL Inactive PRAMIPEXOLE DIHYDROCHLORIDE 0.125 MG ORAL TABLET take 1 tablet po qhs for restless leg syndrome. PRAMIPEXOLE DIHYD ROCHLORIDE 0.125 MG ORAL TABLET 034601 PRAMIPEXOLE DIHYDROCHLORIDE Inactive MIRTAZAPINE 15 MG ORAL TABLET 1/2 tab by mouth at bedtime. 03/13 MIRTAZAPINE 15 MG ORAL TABLET 823910 MIRTAZAPINE In active DIFLUCAN 100 MG ORAL TABLET 1 tablet by mouth daily X 3 DAYS 201 04/09/01 DIFLUCAN 100 MG ORAL TABLET 515167 FLUCONAZOLE Inac tive DIFLUCAN 100 MG ORAL TABLET 1 tablet by mouth every other da y for 2 doses DIFLUCAN 100 MG ORAL TABLET 627715 FLUCONAZOLE Inactive CEFTIN 250 MG ORAL TABLET 1 tablet twice daily x 7 days CEFTIN 250 MG ORAL TABLET CEFUROXIME AXETIL Inactive CYMBALTA 30 MG ORAL CAPSULE DELAYED RELEASE PARTICLES 1 cap by mouth daily with 60mg CYMBALTA 30 MG ORAL CAPSULE DELAYED RELEASE PARTICLES 861822 DULOXETINE HCL Inactive CYMBALTA 60 MG ORAL CAPSULE DELAYED RELEASE PARTICLES Take 1 tablet by mouth daily CYMBALTA 60 MG ORAL CAPSULE DELAYED RELEA SE PARTICLES 109135 DULOXETINE HCL Inactive FOSAMAX 70 MG ORAL TABLET 1 po qweek. Take 30min prio r to first food/drink. Avoid lying down x 1 hour. FOSAMAX 70 MG ORAL TA BLET 329079 ALENDRONATE SODIUM Inactive DIFLUCAN 100 MG ORAL TABLET 1 tablet by mouth daily 20 19/08/26 DIFLUCAN 100 MG ORAL TABLET 528813 FLUCONAZOLE Inactive PREDNISONE 20 MG ORAL TABLET 1 tab twice daily for 3 d ay, then one daily for three days PREDNISONE 20 MG ORAL TABLET 577446 PREDNIS ONE Inactive PROAIR HFA 108 (90 BASE) MCG/ACT INHALATION AEROSOL SO LUTION 1 puff every 6 hours as needed PROAIR HFA 108 (90 B ASE) MCG/ACT INHALATION AEROSOL SOLUTION ALBUTEROL SULFATE Inactive MECLIZINE HCL 25 MG ORAL TABLET one tab po qday prn dizziness 20 17/09/06 MECLIZINE HCL 25 MG ORAL TABLET 199008 MECLIZINE HCL Inactive PREDNISONE 20 MG ORAL TABLET 1 tablet by mouth twice d aily for 3 days, then 1 tablet daily for 3 days PREDNISONE 20 MG ORAL TA BLET 512147 PREDNISONE Inactive DIFLUCAN 100 MG ORAL TABLET 1 tablet by mouth daily 20 20/06/06 DIFLUCAN 100 MG ORAL TABLET 902594 FLUCONAZOLE Inactive BACTRIM DS 800-160 MG ORAL TABLET 1 tab by mouth twice daily 201 03/03/23 BACTRIM DS 800-160 MG ORAL TABLET 136490 TRIMETHOPRIM-SULFAMETHOXAZOLE Inactive ZITHROMAX 250 MG ORAL TABLET 2 po today, then 1 po q days 2-5 20 15/02/10 ZITHROMAX 250 MG ORAL TABLET 933953 AZITHROMYCIN [place] ctive BACTRIM DS 800-160 MG ORAL TABLET [...] a day AMOXICILLIN 500 MG ORAL CAPSULE 843082 AMOXICILLIN Inactive ZITHROMAX 250 MG ORAL TABLET 2 po today, then 1 po q days 2-5 20 20/04/28 ZITHROMAX 250 MG ORAL TABLET 765815 AZITHROMYCIN [place] ctive DIFLUCAN 100 MG ORAL TABLET 1 tablet by mouth daily 20 20/05/01 DIFLUCAN 100 MG ORAL TABLET 19760711 FLUCONAZOLE Inactive BACTRIM DS 800-160 MG ORAL TABLET 1 tab by mouth twice daily 201 06/09/02 BACTRIM DS 800-160 MG ORAL TABLET 19830105 TRIMETHOPRIM-SULFAMETHOXAZOLE Inactive Advance Directives Directive Description Start Date PERMISSION TO SHARE DISCUSSED WITH PATIENT -- NO DECISION MADE DURABLE POWER OF QUANTITATIVE ANALYST MARKETING FOR HEALTHCARE DISCUSED WITH PATIENT -- FULL [...] sium - Chemistry sodium, serum 141 mmol/L 851-226 9519/01/26 carbon dioxide, venous blood 29.5 mmol/L 21.0-32 [...] mg/dL Encounters Code Encounter Date Provider Facility CPT-18965 [id number] Vst-Est Level IV 10:41:41 C BRIDGET Sherman MD [facility] CPT-96464 [id number] Vst-Est Level III 09:40:56 CDT Tesfaye Sherman MD [facility] CPT-35912 Level 4 Est. Patient 22:18:12 CDT Tesfaye pearson MD [facility] CPT-79401 Level 4 Est. 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 Patient 13:55:29 [employer] MACHINE OPERATOR Tesfaye pearson MD [facility] CPT-00000 Level 4 Est. Patient 17:07:34 [employer] MACHINE OPERATOR Tesfaye pearson MD [facility] CPT-46832 Level 4 Est. Patient 13:56:54 CDT Tesfaye pearson MD [facility] CPT-05258 Level 4 Est. Patient 13:24:25 CDT Chelsea sanz APRN [facility] CPT-64725 Level 4 Est. Patient 09:14:56 CDT Tesfaye pearson MD [facility] CPT-04986 Level 4 Est. Patient 18:40:25 [employer] MACHINE OPERATOR Tesfaye pearson MD [facility] CPT-63837 Level 4 Est. Patient 18:13:07 [employer] MACHINE OPERATOR Tesfaye pearson MD [facility] CPT-92045 Level 3 Est. Patient 10:46:32 CDT Rj cotto DO [facility] CPT-36803 Level 4 Est. Patient 20:19:25 CDT Tesfaye pearson MD [facility] CPT-86630 Level 3 Est. Patient 09:07:31 CDT Tesfaye pearson MD [facility] CPT-73761 Level 4 Est. Patient 13:12:56 CDT Tesfaye pearson MD [facility] CPT-78955 Level 4 Est. Patient 21:24:55 [employer] MACHINE OPERATOR Tesfaye pearson MD [facility] CPT-18330 Level 3 Est. Patient 13:45:04 [employer] MACHINE OPERATOR Tesfaye pearson MD [facility] CPT-93781 Level 4 Est. Patient 13:50:45 CDT Tesfaye pearson MD [facility] CPT-65114 Level 3 Est. Patient 10:16:10 CDT Tesfaye pearson MD [facility] CPT-81869 Level 3 Est. Patient 16:36:07 [employer] MACHINE OPERATOR Kayla jameson MD [facility] CPT-54745 Level 4 Est. Patient 16:00:14 [employer] MACHINE OPERATOR Tesfaye pearson MD [facility] CPT-70372 Level 4 Est. Patient 11:02:24 [employer] MACHINE OPERATOR Tesfaye pearson MD [facility] CPT-33371 Level 3 Est. Patient 20:21:43 [employer] MACHINE OPERATOR Kayla jameson MD [facility] CPT-61461 Level 3 Est. Patient 13:27:28 [employer] MACHINE OPERATOR Kayla jameson MD [facility] CPT-94608 Level 4 Est. Patient 15:57:17 [employer] MACHINE OPERATOR Tesfaye pearson MD [facility] CPT-80518 Level 3 New Patient 13:25:47 CDT Tesfaye kidd MD [facility] CPT-70770 Level 3 New Patient 17:22:21 CDT J John angel MD [facility] Procedures Code Procedure Name Date Entry Date Standard Desc ription CPT-G0439 Subsequent Annual Wellness Exam 22:18:11 CDT CPT-73248 Bone Density - XRAY USE ONLY 11:43:58 CDT 2 CPT-96510 Bone Density - XRAY USE ONLY 10:05:16 CDT 2 CPT-64943 Prv Med New Pt 40-64 yrs 18:19:25 CDT 2016 CPT-36443 Foot, right, comp min 3V - XRAY USE ONLY 10:38:34 CDT CPT-G0439 Subsequent Annual Wellness Exam 13:55:04 CDT CPT-G0438 Initial Annual Wellness Exam 11:23:17 CD T CPT-J2930 Solu Medrol 125 mg (Methyl Prednisolone Sodium Succinate) 17:29:12 R[employer] MACHINE OPERATOR CPT-92842 Abx/Therapy Injection 17:29:11 [employer] MACHINE OPERATOR CPT-J2930 Solu Medrol 125 mg (Methyl Prednisolone Sodium Succinate) 12:34:38 [employer] MACHINE OPERATOR CPT-J3420 Vitamin B12 1000mcg (Cyanocobalamin) 09:12:55 CDT CPT-J3420 Vitamin B12 1000mcg (Cyanocobalamin) 16:28:06 [employer] MACHINE OPERATOR CPT-92401 Venipuncture Draw Fee 08:39:53 CDT CPT-J3420 Vitamin B12 1000mcg (Cyanocobalamin) 08:46:22 CDT CPT-62578 Abx/Therapy Injection 08:46:22 CDT CPT-J3420 Vitamin B12 1000mcg (Cyanocobalamin) 08:41:26 CDT CPT-55386 Abx/Therapy Injection 08:41:26 CDT CPT-J3420 Vitamin B12 1000mcg (Cyanocobalamin) 08:57:15 CDT CPT-00675 Abx/Therapy Injection 08:57:15 CDT CPT-J3420 Vitamin B12 1000mcg (Cyanocobalamin) 10:59:03 CDT CPT-18608 Abx/Therapy Injection 10:59:03 CDT CPT-J3420 Vitamin B12 1000mcg (Cyanocobalamin) 15:05:39 CDT CPT-12147 Abx/Therapy Injection 15:05:39 CDT CPT-J3420 Vitamin B12 1000mcg (Cyanocobalamin) 13:50:45 CDT CPT-J3420 Vitamin B12 1000mcg (Cyanocobalamin) 08:48:55 CDT CPT-36218 Abx/Therapy Injection 08:48:55 CDT CPT-J3420 Vitamin B12 1000mcg (Cyanocobalamin) 09:14:54 CDT CPT-74861 Abx/Therapy Injection 09:14:54 CDT CPT-J3420 Vitamin B12 1000mcg (Cyanocobalamin) 09:06:06 CDT CPT-71711 Abx/Therapy Injection 09:06:06 CDT CPT-J3420 Vitamin B12 1000mcg (Cyanocobalamin) 09:49:14 CDT CPT-13795 Abx/Therapy Injection 09:49:14 CDT CPT-J3420 Vitamin B12 1000mcg (Cyanocobalamin) 09:10:30 RIB[employer] HANKING MACHINE OPERATOR CPT-34312 Abx/Therapy Injection 09:10:30 RIB[employer] H[employer]ING MACHINE OPERATOR CPT-J3420 Vitamin B12 1000mcg (Cyanocobalamin) 09:11:07 R[employer] H[employer]ING MACHINE OPERATOR CPT-93095 Abx/Therapy Injection 09:11:07 RIB[employer] H[employer]ING MACHINE OPERATOR CPT-J3420 Vitamin B12 1000mcg (Cyanocobalamin) 09:57:03 RIB[employer] H[employer]ING MACHINE OPERATOR CPT-71952 Abx/Therapy Injection 09:57:03 RIB[employer] HANKING MACHINE OPERATOR CPT-J3420 Vitamin B12 1000mcg (Cyanocobalamin) 09:23:21 R[employer] HANKING MACHINE OPERATOR CPT-04252 Abx/Therapy Injection 09:23:21 RIB[employer] H[employer] MACHINE OPERATOR CPT-69249 Urine Dip (Floor Use Only) 20:21:44 R[employer] MACHINE OPERATOR 201 02/12/11 CPT-76939 UA Dip Auto (Floor Use Only) 10:04:39 [employer] MACHINE OPERATOR 2 CPT-00806 Urine Dip (Floor Use Only) 13:27:28 [employer] MACHINE OPERATOR 201 02/12/01 CPT-81853 Bladder Scan 13:27:28 [employer] MACHINE OPERATOR CPT-95589 Abd single AP View 14:30:51 [employer] MACHINE OPERATOR CPT-OV Office Visit 10:15:43 CDT CPT-51144 Urine Dip (Floor Use Only) 17:22:21 CDT 201 02/09/02 CPT-33981 Bladder Scan 17:22:21 CDT
--- OUTSIDE RECORDS SUMMARY | 2020-05-05 12:32 | XMS REPORT | Clinical Summary ---
Author Author Talon, Jeri Wood Organization [employer] Address Unknown Phone Unavailable Allergies, Adverse Reactions, Alerts Allergy Name Reaction Description Start Date Severity Status Pr ovider FOSAMAX Critical Active Tesfaye armenta MD PRAMIPEXOLE Critical Active Tesfaye villar MD CEFTIN Critical Active Tesfaye armenta MD CIPRO Critical Active Tesfaye armenta MD MIRTAZAPINE Bloating, edema, fatigue, muscle pain Moderate Active Tesfaye Sherman MD MIRAPEX caused dizziness and weakness Moderate Active Tesfaye Sehrman MD NITROFURANTION Critical Active Tesfaye kidd MD [...] Toe pain, right 729.5 Active Chelsea Cardenas [employer] Pain in limb Foot pain, right 729.5 Active Chelsea Cardenas [employer]SEM[employer] Pain in limb Joint pain 719.40 Active Chelsea Cardenas [employer] Pain in joint, site unspecified Tobacco abuse [...] Tesfaye Sherman MD Dysuria 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 MARIA ELENA PIPRAZOLE 85172189961 Active Tesfaye Sherman MD Active CYMBALTA 60 MG ORAL CAPSULE DELAYED RELEASE PARTICLES 1 cap by mouth daily for pain DULOXETINE HCL 13897447240 Active Tesfaye Owusu Active DIFLUCAN 100 MG ORAL TABLET 1 tablet by mouth daily 20 20/06/06 FLUCONAZOLE 50396717483 No Longer Active Tesfaye Sherman MD Acti ve PREDNISONE 20 MG ORAL TABLET 1 tablet by mouth twice d aily for 3 days, then 1 tablet daily for 3 days PREDNISONE 52508106506 No L onger Active Tesfaye Sherman MD Active DIFLUCAN 100 MG ORAL TABLET 1 tablet by mouth daily FLUCONAZOLE 40380563043 Active Tesfaye Sherman MD Active BACTRIM DS 800-160 MG ORAL TABLET 1 tab by mouth twice daily 201 06/09/02 TRIMETHOPRIM-SULFAMETHOXAZOLE 25623988827 No Longer Active Fer Dominguez Active DIFLUCAN 100 MG ORAL TABLET 1 tablet by mouth daily 20 20/05/01 FLUCONAZOLE 69485615696 No Longer Active Tesfaye Sherman MD Acti ve ZITHROMAX 250 MG ORAL TABLET 2 po today, then 1 po q days 2-5 20 20/04/28 AZITHROMYCIN 14227507275 No Longer Active Tesfaye Sherman MD Active MECLIZINE HCL 25 MG ORAL TABLET one tab po qday prn dizziness 20 17/09/06 MECLIZINE HCL 86443781499 No Longer Active Tesfaye Sherman MD Active PROAIR HFA 108 (90 BASE) MCG/ACT INHALATION AEROSOL SO LUTION 1 puff every 6 hours as needed ALBUTEROL SULFATE 32770700620 No Long er Active Tesfaye Sherman MD Active OXYCODONE-ACETAMINOPHEN 5-325 MG ORAL TABLET Take one tablet by mouth every 6 hours as needed. Use sparingly OXYCODONE-ACETAMINOPHEN 58007616671 Active Tesfaye Sherman MD Active PREDNISONE 20 MG ORAL TABLET 1 tab twice daily for 3 d ay, then one daily for three days PREDNISONE 17592161890 No Longer Active Tesfaye Sherman MD Active MECLIZINE HCL 25 MG ORAL TABLET one 4 times a day as needed for dizziness MECLIZINE HCL 78383820378 Active Tesfaye Sherman MD Active AMOXICILLIN 500 MG ORAL CAPSULE 1 cap by mouth three times a day AMOXICILLIN 28068492389 No Longer Active Laurence Dominguez Acti ve VENLAFAXINE HCL 75 MG ORAL TABLET 1 am 1/2 at noon VENLAFAXINE HCL 00980442801 Active Tesfaye Sherman MD Active DIFLUCAN 100 MG ORAL TABLET 1 tablet by mouth daily 20 19/08/26 FLUCONAZOLE 79653351352 No Longer Active Tesfaye Sherman MD Acti ve BACTRIM DS 800-160 MG ORAL TABLET 1 tab by mouth twice daily 201 05/10/28 TRIMETHOPRIM-SULFAMETHOXAZOLE 24901028334 No Longer Active Fer Dominguez Active FOSAMAX 70 MG ORAL TABLET 1 po qweek. Take 30min prio r to first food/drink. Avoid lying down x 1 hour. ALENDRONATE SODIUM 70981084 144 No Longer Active Laurence Dominguez Active REPHRESH PRO-B ORAL CAPSULE 1 tablet daily LACT OBACILLUS 20970674699 Active Edith Burch MD Active CYMBALTA 60 MG ORAL CAPSULE DELAYED RELEASE PARTICLES Take 1 tablet by mouth daily DULOXETINE HCL 01147568942 No Longer Active Edith Burch MD Active CYMBALTA 30 MG ORAL CAPSULE DELAYED RELEASE PARTICLES 1 cap by mouth daily with 60mg DULOXETINE HCL 27014275163 No Longer Active Jordan Burch MD Active FISH OIL 1000 MG ORAL CAPSULE DELAYED RELEASE 1 pill b y mouth daily for cholesterol OMEGA-3 FATTY ACIDS 65309455594 Active Cee Jaffe LPN Active RED YEAST RICE 600 MG ORAL CAPSULE 1 pill by mouth daily RED YEAST RICE EXTRACT 88933624889 Active Rosa Jaffe LPN Activ e DIFLUCAN 100 MG ORAL TABLET 1 tablet by mouth daily 19/03/05 FLUCONAZOLE 22788459500 No Longer Active Tesfaye Sherman MD Acti ve BACTRIM DS 800-160 MG ORAL TABLET 1 tab by mouth twice daily 201 05/06/28 TRIMETHOPRIM-SULFAMETHOXAZOLE 98340300591 No Longer Active Umer Sherman MD Active BACTRIM DS 800-160 MG ORAL TABLET 1 tab by mouth twice daily 201 05/04/15 TRIMETHOPRIM-SULFAMETHOXAZOLE 91150455425 No Longer Active Umer Sherman MD Active DIFLUCAN 150 MG ORAL TABLET 1 tablet by mouth daily 20 18/09/20 FLUCONAZOLE 59272415471 No Longer Active Tesfaye Sherman MD Acti ve BACTRIM DS 800-160 MG ORAL TABLET 1 tab by mouth twice daily 201 04/13/17 TRIMETHOPRIM-SULFAMETHOXAZOLE 59432210077 No Longer Active Umer Sherman MD Active ROPINIROLE HCL 0.25 MG ORAL TABLET 1 TAB PO Q HS ROPINIROLE HCL 93617606336 Active Tesfaye Sherman MD Active CEFTIN 250 MG ORAL TABLET 1 tablet twice daily x 7 days CEFUROXIME AXETIL 32113750590 No Longer Active Tesfaye Sherman MD Active DIFLUCAN 100 MG ORAL TABLET 1 tablet by mouth every other da y for 2 doses FLUCONAZOLE 62865751255 No Longer Active Tesfaye barron MD Active DIFLUCAN 100 MG ORAL TABLET 1 tablet by mouth daily X 3 DAYS 201 04/09/01 FLUCONAZOLE 97376452896 No Longer Active Rj Moss DO Ac tive MIRTAZAPINE 15 MG ORAL TABLET 1/2 tab by mouth at bedtime. 03/13 MIRTAZAPINE 37897006146 No Longer Active Tesfaye Sherman MD Active BACTRIM DS 800-160 MG ORAL TABLET 1 tab by mouth twice daily 201 04/09/01 TRIMETHOPRIM-SULFAMETHOXAZOLE 30145843877 No Longer Active Umer Sherman MD Active PRAMIPEXOLE DIHYDROCHLORIDE 0.125 MG ORAL TABLET take 1 tablet po qhs for restless leg syndrome. PRAMIPEXOLE DIHYDROCHLORI DE 32095768976 No Longer Active Tesfaye Sherman MD Active MAGNESIUM 400 MG ORAL TABLET 1 tab po daily MAGNE SIUM 48743869036 Active Chelsea Cardenas APRN Active SUDAFED 24 HOUR 240 MG ORAL TABLET EXTENDED RELEASE 24 HOUR 1 tab po daily PSEUDOEPHEDRINE HCL 05527230828 Active Chelsea Cardenas APRN Active CETIRIZINE HCL 5 MG ORAL TABLET Take 1 tablet by mouth daily CETIRIZINE HCL 13366902774 No Longer Active Chelsea Cardenas APRN Activ e TRIMETHOPRIM 100 MG ORAL TABLET 1/2 qd TRIM ETHOPRIM 18857627165 No Longer Active Chelsea Cardenas APRN Active BACTRIM DS 800-160 MG ORAL TABLET 1 tab by mouth twice daily 201 04/04/11 TRIMETHOPRIM-SULFAMETHOXAZOLE 85973269962 No Longer Active Umer Sherman MD Active BACTRIM DS 800-160 MG ORAL TABLET 1 tab by mouth twice daily X 10 DAYS TRIMETHOPRIM-SULFAMETHOXAZOLE 48091486699 No Longer Active Tesfaye Sherman MD Active AMOXICILLIN 500 MG ORAL CAPSULE 1 cap by mouth three times a day AMOXICILLIN 26919040269 No Longer Active Adriana Arnulfo Active B-12 1000 MCG ORAL LOZENGE 1 tab po daily CYANO COBALAMIN 40965401116 Active Tesfaye Sherman MD Active VITAMIN D3 2000 UNIT ORAL TABLET 1 daily, for vitamin D deficien cy CHOLECALCIFEROL 67462627086 No Longer Active Tesfaye Sherman MD Active TIZANIDINE HCL 2 MG ORAL TABLET take 1-2 tablet by mo ut every day at bedtime at 9pm PRN TIZANIDINE HCL 51086797581 Active Tesfaye hewitt MD Active ZITHROMAX 250 MG ORAL TABLET 2 po today, then 1 po q days 2-5 20 15/02/10 AZITHROMYCIN 14198990049 No Longer Active Tesfaye Sherman MD Active BACTRIM DS 800-160 MG ORAL TABLET 1 tab by mouth twice daily 201 03/03/23 TRIMETHOPRIM-SULFAMETHOXAZOLE 35229298375 No Longer Active Umer Sherman MD Active PRELIEF 340 (65-50) MG (CA-P) ORAL TABLET CALCIUM GLYCEROPHOSPHATE 99172929906 Active Tesfaye Sherman MD Acti ve [facility] NIACIN FLUSH FREE 400-100 MG ORAL CAPSULE 1 daily NIACIN-INOSITOL 97162028407 Active Kayla Cooper MD Activ e DIFLUCAN 150 MG ORAL TABLET 1 qd FLUCONAZOL E 39992216005 No Longer Active Kayla Cooper MD Active FLUTICASONE PROPIONATE 50 MCG/ACT NASAL SUSPENSION 1 spray each nostril twice daily FLUTICASONE PROPIONATE 18646633392 Active Umer Sherman MD Active LOVASTATIN 20 MG ORAL TABLET Take 1 tablet by mouth daily LOVASTATIN 32283129282 No Longer Active Tesfaye Sherman MD Acti ve MELOXICAM 7.5 MG ORAL TABLET 1 tablet by mouth daily 2 MELOXICAM 24793100757 No Longer Active Tesfaye Sherman MD Acti ve GABAPENTIN 300 MG ORAL CAPSULE Take two tablets by mouth every e vening GABAPENTIN 62863939365 No Longer Active Edith Burch MD A ctive CLONAZEPAM 0.5 MG ORAL TABLET Take one tablet in the m orning and 1.5 tablet at 7pm CLONAZEPAM 79542792201 Active Kayla Cooper MD Active BACLOFEN 10 MG ORAL TABLET Take one tablet by mouth three times a d ay BACLOFEN 84530621109 Active Kayla Cooper MD Active GABAPENTIN 300 MG ORAL CAPSULE Take two tablets by mouth every e vening GABAPENTIN 300 MG ORAL CAPSULE 152976 GABAPENTIN I nactive MELOXICAM 7.5 MG ORAL TABLET 1 tablet by mouth daily 2 MELOXICAM 7.5 MG ORAL TABLET 796422 MELOXICAM Inactive LOVASTATIN 20 MG ORAL TABLET Take 1 tablet by mouth daily LOVASTATIN 20 MG ORAL TABLET 628022 LOVASTATIN Inactive DIFLUCAN 150 MG ORAL TABLET 1 qd DIFLUCAN 150 MG ORAL TABLET 543900 FLUCONAZOLE Inactive VITAMIN D3 2000 UNIT ORAL TABLET 1 daily, for vitamin D deficien cy VITAMIN D3 2000 UNIT ORAL TABLET CHOLECALCIFEROL Inactive AMOXICILLIN 500 MG ORAL CAPSULE 1 cap by mouth three times a day AMOXICILLIN 500 MG ORAL CAPSULE 501125 AMOXICILLIN Inactive BACTRIM DS 800-160 MG ORAL TABLET 1 tab by mouth twice daily X 10 DAYS BACTRIM DS 800-160 MG ORAL TABLET 016268 TRIMETHOPRIM-SULFAMETHOXAZOLE Inactive TRIMETHOPRIM 100 MG ORAL TABLET 1/2 qd 7 TRIMETHOPRIM 100 MG ORAL TABLET 692919 TRIMETHOPRIM Inactive CETIRIZINE HCL 5 MG ORAL TABLET Take 1 tablet by mouth daily CETIRIZINE HCL 5 MG ORAL TABLET 7995142 CETIRIZINE HCL Inactive PRAMIPEXOLE DIHYDROCHLORIDE 0.125 MG ORAL TABLET take 1 tablet po qhs for restless leg syndrome. PRAMIPEXOLE DIHYD ROCHLORIDE 0.125 MG ORAL TABLET 777389 PRAMIPEXOLE DIHYDROCHLORIDE Inactive MIRTAZAPINE 15 MG ORAL TABLET 1/2 tab by mouth at bedtime. 03/13 MIRTAZAPINE 15 MG ORAL TABLET 558532 MIRTAZAPINE In active DIFLUCAN 100 MG ORAL TABLET 1 tablet by mouth daily X 3 DAYS 201 04/09/01 DIFLUCAN 100 MG ORAL TABLET 389113 FLUCONAZOLE Inac tive DIFLUCAN 100 MG ORAL TABLET 1 tablet by mouth every other da y for 2 doses DIFLUCAN 100 MG ORAL TABLET 957631 FLUCONAZOLE Inactive CEFTIN 250 MG ORAL TABLET 1 tablet twice daily x 7 days CEFTIN 250 MG ORAL TABLET CEFUROXIME AXETIL Inactive CYMBALTA 30 MG ORAL CAPSULE DELAYED RELEASE PARTICLES 1 cap by mouth daily with 60mg CYMBALTA 30 MG ORAL CAPSULE DELAYED RELEASE PARTICLES 790400 DULOXETINE HCL Inactive CYMBALTA 60 MG ORAL CAPSULE DELAYED RELEASE PARTICLES Take 1 tablet by mouth daily CYMBALTA 60 MG ORAL CAPSULE DELAYED RELEA SE PARTICLES 801947 DULOXETINE HCL Inactive FOSAMAX 70 MG ORAL TABLET 1 po qweek. Take 30min prio r to first food/drink. Avoid lying down x 1 hour. FOSAMAX 70 MG ORAL TA BLET 248116 ALENDRONATE SODIUM Inactive DIFLUCAN 100 MG ORAL TABLET 1 tablet by mouth daily 20 19/08/26 DIFLUCAN 100 MG ORAL TABLET 853568 FLUCONAZOLE Inactive PREDNISONE 20 MG ORAL TABLET 1 tab twice daily for 3 d ay, then one daily for three days PREDNISONE 20 MG ORAL TABLET 578845 PREDNIS ONE Inactive PROAIR HFA 108 (90 BASE) MCG/ACT INHALATION AEROSOL SO LUTION 1 puff every 6 hours as needed PROAIR HFA 108 (90 B ASE) MCG/ACT INHALATION AEROSOL SOLUTION ALBUTEROL SULFATE Inactive MECLIZINE HCL 25 MG ORAL TABLET one tab po qday prn dizziness 20 17/09/06 MECLIZINE HCL 25 MG ORAL TABLET 317412 MECLIZINE HCL Inactive PREDNISONE 20 MG ORAL TABLET 1 tablet by mouth twice d aily for 3 days, then 1 tablet daily for 3 days PREDNISONE 20 MG ORAL TA BLET 163299 PREDNISONE Inactive DIFLUCAN 100 MG ORAL TABLET 1 tablet by mouth daily 20 20/06/06 DIFLUCAN 100 MG ORAL TABLET 457232 FLUCONAZOLE Inactive BACTRIM DS 800-160 MG ORAL TABLET 1 tab by mouth twice daily 201 03/03/23 BACTRIM DS 800-160 MG ORAL TABLET 104817 TRIMETHOPRIM-SULFAMETHOXAZOLE Inactive ZITHROMAX 250 MG ORAL TABLET 2 po today, then 1 po q days 2-5 20 15/02/10 ZITHROMAX 250 MG ORAL TABLET 995390 AZITHROMYCIN Mayela ctive BACTRIM DS 800-160 MG ORAL TABLET 1 tab by mouth twice daily 201 04/04/11 BACTRIM DS 800-160 MG ORAL TABLET 548130 TRIMETHOPRIM-SULFAMETHOXAZOLE Inactive BACTRIM DS 800-160 MG ORAL TABLET 1 tab by mouth twice daily 201 04/09/01 BACTRIM DS 800-160 MG ORAL TABLET 031745 TRIMETHOPRIM-SULFAMETHOXAZOLE Inactive BACTRIM DS 800-160 MG ORAL TABLET 1 tab by mouth twice daily 201 04/13/17 BACTRIM DS 800-160 MG ORAL TABLET 843247 TRIMETHOPRIM-SULFAMETHOXAZOLE Inactive DIFLUCAN 150 MG ORAL TABLET 1 tablet by mouth daily 20 18/09/20 DIFLUCAN 150 MG ORAL TABLET 19760712 FLUCONAZOLE Inactive BACTRIM DS 800-160 MG ORAL TABLET 1 tab by mouth twice daily 201 05/04/15 BACTRIM DS 800-160 MG ORAL TABLET 639240 TRIMETHOPRIM-SULFAMETHOXAZOLE Inactive BACTRIM DS 800-160 MG ORAL TABLET 1 tab by mouth twice daily 201 05/06/28 BACTRIM DS 800-160 MG ORAL TABLET 202797 TRIMETHOPRIM-SULFAMETHOXAZOLE Inactive DIFLUCAN 100 MG ORAL TABLET 1 tablet by mouth daily 20 19/03/05 DIFLUCAN 100 MG ORAL TABLET 19760711 FLUCONAZOLE Inactive BACTRIM DS 800-160 MG ORAL TABLET 1 tab by mouth twice daily 201 05/10/28 BACTRIM DS 800-160 MG ORAL TABLET 468570 TRIMETHOPRIM-SULFAMETHOXAZOLE Inactive AMOXICILLIN 500 MG ORAL CAPSULE 1 cap by mouth three times a day AMOXICILLIN 500 MG ORAL CAPSULE 803487 AMOXICILLIN Inactive ZITHROMAX 250 MG ORAL TABLET 2 po today, then 1 po q days 2-5 20 20/04/28 ZITHROMAX 250 MG ORAL TABLET 159317 AZITHROMYCIN Mayela ctive DIFLUCAN 100 MG ORAL TABLET 1 tablet by mouth daily 20 20/05/01 DIFLUCAN 100 MG ORAL TABLET 891928 FLUCONAZOLE Inactive BACTRIM DS 800-160 MG ORAL TABLET 1 tab by mouth twice daily 201 06/09/02 BACTRIM DS 800-160 MG ORAL TABLET 794707 TRIMETHOPRIM-SULFAMETHOXAZOLE Inactive Advance Directives Directive Description Start Date PERMISSION TO SHARE DISCUSSED WITH PATIENT -- NO DECISION MADE DURABLE POWER OF CARDIOVASCULAR RN FOR HEALTHCARE DISCUSED WITH PATIENT -- FULL [...] sium - Chemistry sodium, serum 141 mmol/L 154-407 5144/01/26 carbon dioxide, venous blood 29.5 mmol/L 21.0-32 [...] dipstick Trace-lysed Negative sodium, serum 139 mmol/L 392-870 8922/11/07 carbon dioxide, venous blood 28.4 mmol/L 21.0-32 [...] mg/dL Encounters Code Encounter Date Provider Facility CPT-13650 [id number] Vst-Est Level IV 10:41:41 C DT Tesfaye Sherman MD [facility]-75213 [id number] Vst-Est Level III 09:40:56 CDT Tesfaye Sherman MD [facility]-52870 Level 4 Est. Patient 22:18:12 CDT Tesfaye pearson MD [facility]-64617 Level 4 Est. 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 Patient 13:55:29 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 Tesfaye pearson MD [facility]-58578 Level 4 Est. Patient 17:07:34 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 Tesfaye pearson MD [facility]-30103 Level 4 Est. Patient 13:56:54 CDT Tesfaye pearson MD [facility]-83275 Level 4 Est. Patient 13:24:25 CDT Chelsea sanz APRN [facility] CPT-86511 Level 4 Est. Patient 09:14:56 CDT Tesfaye pearson MD [facility]-81573 Level 4 Est. 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 Patient 18:13:07 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 Tesfaye pearson MD [facility] CPT-10897 Level 3 Est. Patient 10:46:32 CDT Rj cotto DO [facility] CPT-78468 Level 4 Est. Patient 20:19:25 CDT Tesfaye pearson MD [facility]-09723 Level 3 Est. Patient 09:07:31 CDT Tesfaye pearson MD [facility]-91946 Level 4 Est. Patient 13:12:56 CDT Tesfaye pearson MD [facility]-45598 Level 4 Est. 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 Patient 13:50:45 CDT Tesfaye pearson MD [facility] CPT-74529 Level 3 Est. Patient 10:16:10 CDT Tesfaye pearson MD [facility] CPT-34439 Level 3 Est. 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 Patient 16:00:14 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 Tesfaye pearson MD [facility] CPT-21872 Level 4 Est. 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 Tesfaye pearson MD [facility] CPT-97859 Level 3 New Patient 13:25:47 CDT Tesfaye kidd MD [facility] CPT-73397 Level 3 New Patient 17:22:21 CDT Kayla angel MD [facility] Procedures Code Procedure Name Date Entry Date Standard Desc ription CPT-G0439 [facility] Annual Wellness Exam 22:18:11 CDT CPT-56125 Bone Density - XRAY USE ONLY 11:43:58 CDT 2 CPT-94781 Bone Density - XRAY USE ONLY 10:05:16 CDT 2 CPT-57056 Prv Med New Pt 40-64 yrs 18:19:25 CDT 2016 CPT-43087 Foot, right, comp min 3V - XRAY USE ONLY 10:38:34 CDT CPT-G0439 Subsequent Annual Wellness Exam 13:55:04 CDT CPT-G0438 Initial Annual Wellness Exam 11:23:17 CD T CPT-J2930 Solu Medrol 125 mg (Methyl Prednisolone Sodium Succinate) 17:29:12 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 CPT-30201 Abx/Therapy Injection 17:29:11 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 CPT-J2930 Solu Medrol 125 mg (Methyl Prednisolone Sodium Succinate) 12:34:38 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 CPT-J3420 Vitamin B12 1000mcg (Cyanocobalamin) 09:12:55 CDT CPT-J3420 Vitamin B12 1000mcg (Cyanocobalamin) 16:28:06 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 CPT-55632 Venipuncture Draw Fee 08:39:53 CDT CPT-J3420 Vitamin B12 1000mcg (Cyanocobalamin) 08:46:22 CDT CPT-60847 Abx/Therapy Injection 08:46:22 CDT CPT-J3420 Vitamin B12 1000mcg (Cyanocobalamin) 08:41:26 CDT CPT-80788 Abx/Therapy Injection 08:41:26 CDT CPT-J3420 Vitamin B12 1000mcg (Cyanocobalamin) 08:57:15 CDT CPT-24404 Abx/Therapy Injection 08:57:15 CDT CPT-J3420 Vitamin B12 1000mcg (Cyanocobalamin) 10:59:03 CDT CPT-05746 Abx/Therapy Injection 10:59:03 CDT CPT-J3420 Vitamin B12 1000mcg (Cyanocobalamin) 15:05:39 CDT CPT-21677 Abx/Therapy Injection 15:05:39 CDT CPT-J3420 Vitamin B12 1000mcg (Cyanocobalamin) 13:50:45 CDT CPT-J3420 Vitamin B12 1000mcg (Cyanocobalamin) 08:48:55 CDT CPT-28411 Abx/Therapy Injection 08:48:55 CDT CPT-J3420 Vitamin B12 1000mcg (Cyanocobalamin) 09:14:54 CDT CPT-83318 Abx/Therapy Injection 09:14:54 CDT CPT-J3420 Vitamin B12 1000mcg (Cyanocobalamin) 09:06:06 CDT CPT-08506 Abx/Therapy Injection 09:06:06 CDT CPT-J3420 Vitamin B12 1000mcg (Cyanocobalamin) 09:49:14 CDT CPT-70394 Abx/Therapy Injection 09:49:14 CDT CPT-J3420 Vitamin B12 1000mcg (Cyanocobalamin) 09:10:30 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 CPT-08406 Abx/Therapy Injection 09:10:30 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 CPT-J3420 Vitamin B12 1000mcg (Cyanocobalamin) 09:11:07 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 CPT-01692 Abx/Therapy Injection 09:11:07 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 CPT-J3420 Vitamin B12 1000mcg (Cyanocobalamin) 09:57:03 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 CPT-10625 Abx/Therapy Injection 09:57:03 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 CPT-J3420 Vitamin B12 1000mcg (Cyanocobalamin) 09:23:21 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 CPT-66724 Abx/Therapy Injection 09:23:21 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 CPT-21335 Urine Dip (Floor Use Only) 20:21:44 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 201 02/12/11 CPT-23274 UA Dip Auto (Floor Use Only) 10:04:39 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 2 CPT-72531 Urine Dip (Floor Use Only) 13:27:28 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
--- OUTSIDE RECORDS SUMMARY | 2020-05-05 12:33 | XMS REPORT | Clinical Summary ---
Author Author Jeri Hanley Organization [employer] Address Unknown Phone Unavailable Allergies, Adverse Reactions, [...] then one daily for three days PREDNISONE [id number] Active Laurence Raida Active PROAIR HFA 108 (90 BASE) MCG/ACT INHALATION AEROSOL SO LUTION 1 puff every 6 hours as needed ALBUTEROL SULFATE 26511528096 Active Alburtis nda Raida Active MECLIZINE HCL 25 MG ORAL TABLET one 4 times a day as needed for dizziness MECLIZINE HCL 67993286790 Active Laurence Raida Active DIFLUCAN 100 MG ORAL TABLET 1 tablet by mouth daily FLUCONAZOLE 26934116409 Active Laurence Raida Active AMOXICILLIN 500 MG ORAL CAPSULE 1 cap by mouth three times a day AMOXICILLIN 31217167598 No Longer Active Laurence Raida Acti ve VENLAFAXINE HCL 75 MG ORAL TABLET 1 am 1/2 at noon VENLAFAXINE HCL 06801543903 Active Tesfaye Sherman MD Active DIFLUCAN 100 MG ORAL TABLET 1 tablet by mouth daily 20 19/08/26 FLUCONAZOLE 88134015993 No Longer Active Tesfaye Sherman MD Acti ve BACTRIM DS 800-160 MG ORAL TABLET 1 tab by mouth twice daily 201 05/10/28 TRIMETHOPRIM-SULFAMETHOXAZOLE 72060454184 No Longer Active Fer bradley Angelica Active FOSAMAX 70 MG ORAL TABLET 1 po qweek. Take 30min prio r to first food/drink. Avoid lying down x 1 hour. ALENDRONATE SODIUM 61784565 144 No Longer Active Laurence Lopezduyen Active REPHRESH PRO-B ORAL CAPSULE 1 tablet daily LACT OBACILLUS 22548281826 Active Edith Burch MD Active CYMBALTA 60 MG ORAL CAPSULE DELAYED RELEASE PARTICLES Take 1 tablet by mouth daily DULOXETINE HCL 95657052315 No Longer Active Edith Burch MD Active CYMBALTA 30 MG ORAL CAPSULE DELAYED RELEASE PARTICLES 1 cap by mouth daily with 60mg DULOXETINE HCL 68236190512 No Longer Active Jordan Burch MD Active FISH OIL 1000 MG ORAL CAPSULE DELAYED RELEASE 1 pill b y mouth daily for cholesterol OMEGA-3 FATTY ACIDS 14736354738 Active Cee Jaffe LPN Active RED YEAST RICE 600 MG ORAL CAPSULE 1 pill by mouth daily RED YEAST RICE EXTRACT 50419307381 Active Rosa Jaffe LPN Activ e DIFLUCAN 100 MG ORAL TABLET 1 tablet by mouth daily 20 19/03/05 FLUCONAZOLE 83559549057 No Longer Active Tesfaye Sherman MD Acti ve BACTRIM DS 800-160 MG ORAL TABLET 1 tab by mouth twice daily 201 05/06/28 TRIMETHOPRIM-SULFAMETHOXAZOLE 63966199518 No Longer Active Umer Sherman MD Active BACTRIM DS 800-160 MG ORAL TABLET 1 tab by mouth twice daily 201 05/04/15 TRIMETHOPRIM-SULFAMETHOXAZOLE 84410508735 No Longer Active Umer Sherman MD Active DIFLUCAN 150 MG ORAL TABLET 1 tablet by mouth daily 20 18/09/20 FLUCONAZOLE 32790797167 No Longer Active Tesfaye Sherman MD Acti ve BACTRIM DS 800-160 MG ORAL TABLET 1 tab by mouth twice daily 201 6/11/17 TRIMETHOPRIM-SULFAMETHOXAZOLE 00626516277 No Longer Active Umer Sherman MD Active ROPINIROLE HCL 0.25 MG ORAL TABLET 1 TAB PO Q HS ROPINIROLE HCL 74835970648 Active Tesfaye Sherman MD Active CEFTIN 250 MG ORAL TABLET 1 tablet twice daily x 7 days CEFUROXIME AXETIL 44228748460 No Longer Active Tesfaye Sherman MD Active DIFLUCAN 100 MG ORAL TABLET 1 tablet by mouth every other da y for 2 doses FLUCONAZOLE 19992738621 No Longer Active Tesfaye barron MD Active DIFLUCAN 100 MG ORAL TABLET 1 tablet by mouth daily X 3 DAYS 201 04/09/01 FLUCONAZOLE 51295445625 No Longer Active Rj Moss DO Ac tive MIRTAZAPINE 15 MG ORAL TABLET 1/2 tab by mouth at bedtime. 03/13 MIRTAZAPINE 32302098880 No Longer Active Tesfaye Sherman MD Active BACTRIM DS 800-160 MG ORAL TABLET 1 tab by mouth twice daily 201 04/09/01 TRIMETHOPRIM-SULFAMETHOXAZOLE 74189569525 No Longer Active Umer Sherman MD Active PRAMIPEXOLE DIHYDROCHLORIDE 0.125 MG ORAL TABLET take 1 tablet po qhs for restless leg syndrome. PRAMIPEXOLE DIHYDROCHLORI DE 75304940710 No Longer Active Tesfaye Sherman MD Active MAGNESIUM 400 MG ORAL TABLET 1 tab po daily MAGNE SIUM 81808203111 Active Chelsea Barba APRN Active SUDAFED 24 HOUR 240 MG ORAL TABLET EXTENDED RELEASE 24 HOUR 1 tab po daily PSEUDOEPHEDRINE HCL 40359001558 Active Chelsea NAPOLES RN Active CETIRIZINE HCL 5 MG ORAL TABLET Take 1 tablet by mouth daily CETIRIZINE HCL 28129046236 No Longer Active Chelsea Barba APRN Ac tive TRIMETHOPRIM 100 MG ORAL TABLET 1/2 qd TRIM ETHOPRIM 75855943927 No Longer Active Chelsea Jameson [employer] Active BACTRIM DS 800-160 MG ORAL TABLET 1 tab by mouth twice daily 201 04/04/11 TRIMETHOPRIM-SULFAMETHOXAZOLE 83346167675 No Longer Active Umer Sherman MD Active BACTRIM DS 800-160 MG ORAL TABLET 1 tab by mouth twice daily X 10 DAYS TRIMETHOPRIM-SULFAMETHOXAZOLE 58256617936 No Longer Active Tesfaye Sherman MD Active AMOXICILLIN 500 MG ORAL CAPSULE 1 cap by mouth three times a day AMOXICILLIN 75914833378 No Longer Active Adriana Arredondo Active MECLIZINE HCL 25 MG ORAL TABLET one tab po qday prn dizziness 09/08 MECLIZINE HCL 74054397905 Active Tesfaye Sherman MD Active B-12 1000 MCG ORAL LOZENGE 1 tab po daily CYANO COBALAMIN 46299110129 Active Tesfaye Sherman MD Active VITAMIN D3 2000 UNIT ORAL TABLET 1 daily, for vitamin D deficien cy CHOLECALCIFEROL 34516715927 No Longer Active Tesfaye Sherman MD Active TIZANIDINE HCL 2 MG ORAL TABLET take 1-2 tablet by [facility] every day at bedtime at 9pm PRN TIZANIDINE HCL 67234504799 Active Tesfaye hewitt MD Active ZITHROMAX 250 MG ORAL TABLET 2 po today, then 1 po q days 2-5 20 15/02/10 AZITHROMYCIN 46498969883 No Longer Active Tesfaye Sherman MD Active BACTRIM DS 800-160 MG ORAL TABLET 1 tab by mouth twice daily 201 03/03/23 TRIMETHOPRIM-SULFAMETHOXAZOLE 95158053422 No Longer Active Umer Sherman MD Active PRELIEF 340 (65-50) MG (CA-P) ORAL TABLET CALCIUM GLYCEROPHOSPHATE 50363794525 Active Tesfaye Sherman MD Acti ve [facility] NIACIN FLUSH FREE 400-100 MG ORAL CAPSULE 1 daily NIACIN-INOSITOL 38620025581 Active Kayla Cooper MD Activ e DIFLUCAN 150 MG ORAL TABLET 1 qd FLUCONAZOL E 28704143452 No Longer Active Kayla Cooper MD Active FLUTICASONE PROPIONATE 50 MCG/ACT NASAL SUSPENSION 1 spray each nostril twice daily FLUTICASONE PROPIONATE 27798732825 Active D patricia Sherman MD Active LOVASTATIN 20 MG ORAL TABLET Take 1 tablet by mouth daily LOVASTATIN 77125207139 No Longer Active Tesfaye Sherman MD Acti ve MELOXICAM 7.5 MG ORAL TABLET 1 tablet by mouth daily 2 MELOXICAM 51905538894 No Longer Active Tesfaye Sherman MD Acti ve GABAPENTIN 300 MG ORAL CAPSULE Take two tablets by mouth every e vening GABAPENTIN 96440500613 No Longer Active Edith Burch MD A ctive OXYCODONE-ACETAMINOPHEN 5-325 MG ORAL TABLET Take one tablet by mouth every 6 hours as needed. Max 12 tabs/day as needed OXYCO DONE-ACETAMINOPHEN 10641300697 Active Tesfaye Sherman MD Active CLONAZEPAM 0.5 MG ORAL TABLET Take one tablet in the m orning and 1.5 tablet at 7pm CLONAZEPAM 33135854730 Active Kayla Cooper MD Active BACLOFEN 10 MG ORAL TABLET Take one tablet by mouth three times a d ay BACLOFEN 97800649361 Active Kayla Cooper MD Active GABAPENTIN 300 MG ORAL CAPSULE Take two tablets by mouth every e vening GABAPENTIN 300 MG ORAL CAPSULE 612936 GABAPENTIN I nactive MELOXICAM 7.5 MG ORAL TABLET 1 tablet by mouth daily 2 MELOXICAM 7.5 MG ORAL TABLET 944568 MELOXICAM Inactive LOVASTATIN 20 MG ORAL TABLET Take 1 tablet by mouth daily LOVASTATIN 20 MG ORAL TABLET 990501 LOVASTATIN Inactive DIFLUCAN 150 MG ORAL TABLET 1 qd DIFLUCAN 150 MG ORAL TABLET 774957 FLUCONAZOLE Inactive VITAMIN D3 2000 UNIT ORAL TABLET 1 daily, for vitamin D deficien cy VITAMIN D3 2000 UNIT ORAL TABLET CHOLECALCIFEROL Inactive AMOXICILLIN 500 MG ORAL CAPSULE 1 cap by mouth three times a day AMOXICILLIN 500 MG ORAL CAPSULE 284165 AMOXICILLIN Inactive BACTRIM DS 800-160 MG ORAL TABLET 1 tab by mouth twice daily X 10 DAYS BACTRIM DS 800-160 MG ORAL TABLET 694303 TRIMETHOPRIM-SULFAMETHOXAZOLE Inactive TRIMETHOPRIM 100 MG ORAL TABLET 1/2 qd 7 TRIMETHOPRIM 100 MG ORAL TABLET 502782 TRIMETHOPRIM Inactive CETIRIZINE HCL 5 MG ORAL TABLET Take 1 tablet by mouth daily CETIRIZINE HCL 5 MG ORAL TABLET 5021902 CETIRIZINE HCL Inactive PRAMIPEXOLE DIHYDROCHLORIDE 0.125 MG ORAL TABLET take 1 tablet po qhs for restless leg syndrome. PRAMIPEXOLE DIHYD ROCHLORIDE 0.125 MG ORAL TABLET 744530 PRAMIPEXOLE DIHYDROCHLORIDE Inactive MIRTAZAPINE 15 MG ORAL TABLET 1/2 tab by mouth at bedtime. 03/13 MIRTAZAPINE 15 MG ORAL TABLET 660703 MIRTAZAPINE In active DIFLUCAN 100 MG ORAL TABLET 1 tablet by mouth daily X 3 DAYS 201 04/09/01 DIFLUCAN 100 MG ORAL TABLET 556622 FLUCONAZOLE Inac tive DIFLUCAN 100 MG ORAL TABLET 1 tablet by mouth every other da y for 2 doses DIFLUCAN 100 MG ORAL TABLET 594819 FLUCONAZOLE Inactive CEFTIN 250 MG ORAL TABLET 1 tablet twice daily x 7 days CEFTIN 250 MG ORAL TABLET 437256 CEFUROXIME AXETIL Inactive CYMBALTA 30 MG ORAL CAPSULE DELAYED RELEASE PARTICLES 1 cap by mouth daily with 60mg CYMBALTA 30 MG ORAL CAPSULE DELAYED RELEASE PARTICLES 091329 DULOXETINE HCL Inactive CYMBALTA 60 MG ORAL CAPSULE DELAYED RELEASE PARTICLES Take 1 tablet by mouth daily CYMBALTA 60 MG ORAL CAPSULE DELAYED RELEA SE PARTICLES 812142 DULOXETINE HCL Inactive FOSAMAX 70 MG ORAL TABLET 1 po qweek. Take 30min prio r to first food/drink. Avoid lying down x 1 hour. 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 - Chemistry sodium, serum 144 mmol/L 242-892 9574/06/14 carbon dioxide, venous blood 29.4 mmol/L 21.0-32 .0 potassium, serum 4.4 mmol/L 3.5-5.2 chloride, serum 108 mmol/L 98-107 blood glucose 100 mg/dL 65-110 urea nitrogen, blood 9 mg/dL 7-18 creatinine, serum 0.67 mg/dL 0.55-1.30 alanine aminotransferase (SGPT), serum 24 U/L 12-78 aspartate aminotransferase (SGOT), serum 15 U/L 15-37 calcium, serum 9.3 mg/dL 8.5-10.1 bilirubin, serum, total 0.50 mg/dL 0.00-1.00 cholesterol, serum 268 mg/dL 119-024 3998/06/14 triglyceride, serum, fasting 126 mg/dL 30-200 HDL [...] mg/dL Encounters Code Encounter Date Provider Facility CPT-53628 Level 4 Est. Patient 17:07:34 SAT TUTOR Tesfaye pearson MD [facility] CPT-94248 Level 4 Est. Patient 13:56:54 CDT Tesfaye pearson MD [facility] CPT-01186 Level 4 Est. Patient 13:24:25 CDT Stephanie MERCADO [facility] CPT-09346 Level 4 Est. Patient 09:14:56 CDT Tesfaye pearson MD [facility] CPT-44207 Level 4 Est. Patient 18:40:25 SAT TUTOR Tesfaye pearson MD [facility] CPT-07663 Level 4 Est. Patient 18:13:07 SAT TUTOR Tesfaye pearson MD [facility] CPT-04492 Level 3 Est. Patient 10:46:32 CDT Rj cotto DO [facility]-24968 Level 4 Est. Patient 20:19:25 CDT Tesfaye pearson MD [facility]-50338 Level 3 Est. Patient 09:07:31 CDT Tesfaye pearson MD [facility]-17152 Level 4 Est. Patient 13:12:56 CDT Tesfaye pearson MD [facility]-88916 Level 4 Est. Patient 21:24:55 SAT TUTOR Tesfaye pearson MD [facility]-96583 Level 3 Est. Patient 13:45:04 SAT TUTOR Tesfaye pearson MD [facility] CPT-15986 Level 4 Est. Patient 13:50:45 CDT Tesfaye pearson MD [facility] CPT-70720 Level 3 Est. Patient 10:16:10 CDT Tesfaye pearson MD [facility] CPT-52837 Level 3 Est. Patient 16:36:07 SAT TUTOR Kayla jameson MD [facility]-23629 Level 4 Est. Patient 16:00:14 SAT TUTOR Tesfaye pearson MD [facility]-54345 Level 4 Est. Patient 11:02:24 SAT TUTOR Tesfaye pearson MD [facility]-89817 Level 3 Est. Patient 20:21:43 SAT TUTOR Kayla jameson MD [facility]-80183 Level 3 Est. Patient 13:27:28 SAT TUTOR Kayla jameson MD [facility]-22493 Level 4 Est. Patient 15:57:17 SAT TUTOR Tesfaye pearson MD [facility] CPT-62220 Level 3 New Patient 13:25:47 CDT Tesfaye kidd MD [facility] CPT-92776 Level 3 New Patient 17:22:21 CDT Kayla angel MD [facility] Procedures Code Procedure Name Date Entry Date Standard Desc ription CPT-64402 Bone Density - XRAY USE ONLY 11:43:58 CDT 2 CPT-11372 Bone Density - XRAY USE ONLY 10:05:16 CDT 2 CPT-79916 Prv Med New Pt 40-64 yrs 18:19:25 CDT 2016 CPT-60643 Foot, right, comp min 3V - XRAY USE ONLY 10:38:34 CDT CPT-G0439 Subsequent Annual Wellness Exam 13:55:04 CDT CPT-G0438 Initial Annual Wellness Exam 11:23:17 CD T CPT-J2930 Solu Medrol 125 mg (Methyl Prednisolone Sodium Succinate) 17:29:12 SAT TUTOR CPT-08003 Abx/Therapy Injection 17:29:11 SAT TUTOR CPT-J2930 Solu Medrol 125 mg (Methyl Prednisolone Sodium Succinate) 12:34:38 SAT TUTOR CPT-J3420 Vitamin B12 1000mcg (Cyanocobalamin) 09:12:55 CDT CPT-J3420 Vitamin B12 1000mcg (Cyanocobalamin) 16:28:06 SAT TUTOR CPT-48076 Venipuncture Draw Fee 08:39:53 CDT CPT-J3420 Vitamin B12 1000mcg (Cyanocobalamin) 08:46:22 CDT CPT-96274 Abx/Therapy Injection 08:46:22 CDT CPT-J3420 Vitamin B12 1000mcg (Cyanocobalamin) 08:41:26 CDT CPT-38813 Abx/Therapy Injection 08:41:26 CDT CPT-J3420 Vitamin B12 1000mcg (Cyanocobalamin) 08:57:15 CDT CPT-28764 Abx/Therapy Injection 08:57:15 CDT CPT-J3420 Vitamin B12 1000mcg (Cyanocobalamin) 10:59:03 CDT CPT-36434 Abx/Therapy Injection 10:59:03 CDT CPT-J3420 Vitamin B12 1000mcg (Cyanocobalamin) 15:05:39 CDT CPT-80500 Abx/Therapy Injection 15:05:39 CDT CPT-J3420 Vitamin B12 1000mcg (Cyanocobalamin) 13:50:45 CDT CPT-J3420 Vitamin B12 1000mcg (Cyanocobalamin) 08:48:55 CDT CPT-75736 Abx/Therapy Injection 08:48:55 CDT CPT-J3420 Vitamin B12 1000mcg (Cyanocobalamin) 09:14:54 CDT CPT-37286 Abx/Therapy Injection 09:14:54 CDT CPT-J3420 Vitamin B12 1000mcg (Cyanocobalamin) 09:06:06 CDT CPT-18507 Abx/Therapy Injection 09:06:06 CDT CPT-J3420 Vitamin B12 1000mcg (Cyanocobalamin) 09:49:14 CDT CPT-26917 Abx/Therapy Injection 09:49:14 CDT CPT-J3420 Vitamin B12 1000mcg (Cyanocobalamin) 09:10:30 SAT TUTOR CPT-06680 Abx/Therapy Injection 09:10:30 SAT TUTOR CPT-J3420 Vitamin B12 1000mcg (Cyanocobalamin) 09:11:07 SAT TUTOR CPT-46794 Abx/Therapy Injection 09:11:07 SAT TUTOR CPT-J3420 Vitamin B12 1000mcg (Cyanocobalamin) 09:57:03 SAT TUTOR CPT-89607 Abx/Therapy Injection 09:57:03 SAT TUTOR CPT-J3420 Vitamin B12 1000mcg (Cyanocobalamin) 09:23:21 SAT TUTOR CPT-97372 Abx/Therapy Injection 09:23:21 SAT TUTOR CPT-32032 Urine Dip (Floor Use Only) 20:21:44 SAT TUTOR 201 02/12/11 CPT-86587 UA Dip Auto (Floor Use Only) 10:04:39 SAT TUTOR 2 CPT-70858 Urine Dip (Floor Use Only) 13:27:28 SAT TUTOR 201 02/12/01 CPT-64044 Bladder Scan 13:27:28 SAT TUTOR CPT-23135 Abd single AP View 14:30:51 SAT TUTOR CPT-OV Office Visit 10:15:43 CDT CPT-68100 Urine Dip (Floor Use Only) 17:22:21 CDT 201 02/09/02 CPT-21607 Bladder Scan 17:22:21 CDT
--- OUTSIDE RECORDS SUMMARY | 2020-05-05 12:33 | XMS REPORT | Clinical Summary ---
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 MANAGER Pain in limb Foot pain, right 729.5 Active Chelsea Cardenas MARKETING ASSISTANT MANAGER Pain in limb Joint pain 719.40 Active Chelsea Cardenas MARKETING ASSISTANT MANAGER Pain in joint, site unspecified Tobacco abuse [...] by mouth daily for pain DULOXETINE HCL 08755224536 Active Tesfaye Owusu Active DIFLUCAN 100 MG ORAL TABLET 1 tablet by mouth daily 20 20/06/06 FLUCONAZOLE 45544297265 No Longer Active Tesfaye Sherman MD Acti ve PREDNISONE 20 MG ORAL TABLET 1 tablet by mouth twice d aily for 3 days, then 1 tablet daily for 3 days PREDNISONE 38868511374 No L onger Active Tesfaye Sherman MD Active DIFLUCAN 100 MG ORAL TABLET 1 tablet by mouth daily FLUCONAZOLE 75456457490 Active Laurence Angelica Active BACTRIM DS 800-160 MG ORAL TABLET 1 tab by mouth twice daily 201 06/09/02 TRIMETHOPRIM-SULFAMETHOXAZOLE 17264766378 No Longer Active A mirna Dominguez Active DIFLUCAN 100 MG ORAL TABLET 1 tablet by mouth daily 20 20/05/01 FLUCONAZOLE 79634056033 No Longer Active Tesfaye Sherman MD Acti ve ZITHROMAX 250 MG ORAL TABLET 2 po today, then 1 po q days 2-5 20 20/04/28 AZITHROMYCIN 29517960698 No Longer Active Tesfaye Sherman MD Active MECLIZINE HCL 25 MG ORAL TABLET one tab po qday prn dizziness 20 17/09/06 MECLIZINE HCL 41757003413 No Longer Active Tesfaye Sherman MD Active PROAIR HFA 108 (90 BASE) MCG/ACT INHALATION AEROSOL SO LUTION 1 puff every 6 hours as needed ALBUTEROL SULFATE 36211924224 No Long er Active Tesfaye Sherman MD Active OXYCODONE-ACETAMINOPHEN 5-325 MG ORAL TABLET Take one tablet by mouth every 6 hours as needed. Use sparingly OXYCODONE-ACETAMINOPHEN 10015308068 Active Tesfaye Sherman MD Active PREDNISONE 20 MG ORAL TABLET 1 tab twice daily for 3 d ay, then one daily for three days PREDNISONE 37752445758 No Longer Active Tesfaye Sherman MD Active MECLIZINE HCL 25 MG ORAL TABLET one 4 times a day as needed for dizziness MECLIZINE HCL 47078564127 Active Laurence Dominguez Active AMOXICILLIN 500 MG ORAL CAPSULE 1 cap by mouth three times a day AMOXICILLIN 38336811147 No Longer Active Laurence Dominguez Acti ve VENLAFAXINE HCL 75 MG ORAL TABLET 1 am 1/2 at noon VENLAFAXINE HCL 85952735538 Active Tesfaye Sherman MD Active DIFLUCAN 100 MG ORAL TABLET 1 tablet by mouth daily 20 19/08/26 FLUCONAZOLE 49327380002 No Longer Active Tesfaye Sherman MD Acti ve BACTRIM DS 800-160 MG ORAL TABLET 1 tab by mouth twice daily 201 05/10/28 TRIMETHOPRIM-SULFAMETHOXAZOLE 37543834656 No Longer Active Fer Dominguez Active FOSAMAX 70 MG ORAL TABLET 1 po qweek. Take 30min prio r to first food/drink. Avoid lying down x 1 hour. ALENDRONATE SODIUM 34777726 144 No Longer Active Laurence Dominguez Active REPHRESH PRO-B ORAL CAPSULE 1 tablet daily LACT OBACILLUS 34584289773 Active Edith Burch MD Active CYMBALTA 60 MG ORAL CAPSULE DELAYED RELEASE PARTICLES Take 1 tablet by mouth daily DULOXETINE HCL 82172185773 No Longer Active Edith Burch MD Active CYMBALTA 30 MG ORAL CAPSULE DELAYED RELEASE PARTICLES 1 cap by mouth daily with 60mg DULOXETINE HCL 54525584954 No Longer Active Jordan Burch MD Active FISH OIL 1000 MG ORAL CAPSULE DELAYED RELEASE 1 pill b y mouth daily for cholesterol OMEGA-3 FATTY ACIDS 82464022779 Active Cee Jaffe LPN Active RED YEAST RICE 600 MG ORAL CAPSULE 1 pill by mouth daily RED YEAST RICE EXTRACT 75806987187 Active Rosa Jaffe LPN Activ e DIFLUCAN 100 MG ORAL TABLET 1 tablet by mouth daily 20 19/03/05 FLUCONAZOLE 44375181099 No Longer Active Tesfaye Sherman MD Acti ve BACTRIM DS 800-160 MG ORAL TABLET 1 tab by mouth twice daily 201 05/06/28 TRIMETHOPRIM-SULFAMETHOXAZOLE 22970034739 No Longer Active Umer Sherman MD Active BACTRIM DS 800-160 MG ORAL TABLET 1 tab by mouth twice daily 201 05/04/15 TRIMETHOPRIM-SULFAMETHOXAZOLE 00126466467 No Longer Active Umer Sherman MD Active DIFLUCAN 150 MG ORAL TABLET 1 tablet by mouth daily 20 18/09/20 FLUCONAZOLE 49503427647 No Longer Active Tesfaye Sherman MD Acti ve BACTRIM DS 800-160 MG ORAL TABLET 1 tab by mouth twice daily 201 04/13/17 TRIMETHOPRIM-SULFAMETHOXAZOLE 90728873009 No Longer Active Umer Sherman MD Active ROPINIROLE HCL 0.25 MG ORAL TABLET 1 TAB PO Q HS ROPINIROLE HCL 49778671728 Active Tesfaye Sherman MD Active CEFTIN 250 MG ORAL TABLET 1 tablet twice daily x 7 days CEFUROXIME AXETIL 92396015468 No Longer Active Tesfaye Sherman MD Active DIFLUCAN 100 MG ORAL TABLET 1 tablet by mouth every other da y for 2 doses FLUCONAZOLE 56285149789 No Longer Active Tesfaye barron MD Active DIFLUCAN 100 MG ORAL TABLET 1 tablet by mouth daily X 3 DAYS 201 04/09/01 FLUCONAZOLE 24230201465 No Longer Active Rj Lyons tidragan MIRTAZAPINE 15 MG ORAL TABLET 1/2 tab by mouth at bedtime. 03/13 MIRTAZAPINE 62778971199 No Longer Active Tesfaye Sherman MD Active BACTRIM DS 800-160 MG ORAL TABLET 1 tab by mouth twice daily 201 04/09/01 TRIMETHOPRIM-SULFAMETHOXAZOLE 03660478609 No Longer Active Umer Sherman MD Active PRAMIPEXOLE DIHYDROCHLORIDE 0.125 MG ORAL TABLET take 1 tablet po qhs for restless leg syndrome. PRAMIPEXOLE DIHYDROCHLORI DE 60405077627 No Longer Active Tesfaye Sherman MD Active MAGNESIUM 400 MG ORAL TABLET 1 tab po daily MAGNE SIUM 95499301950 Active Chelsea Arell MARKETING ASSISTANT MANAGER Active SUDAFED 24 HOUR 240 MG ORAL TABLET EXTENDED RELEASE 24 HOUR 1 tab po daily PSEUDOEPHEDRINE HCL 47949627112 Active Chelsea Arell MARKETING ASSISTANT MANAGER Active CETIRIZINE HCL 5 MG ORAL TABLET Take 1 tablet by mouth daily CETIRIZINE HCL 43628715979 No Longer Active Chelsea Cardenas APRN Activ e TRIMETHOPRIM 100 MG ORAL TABLET 1/2 qd TRIM ETHOPRIM 90225478248 No Longer Active Chelsea Cardenas APRN Active BACTRIM DS 800-160 MG ORAL TABLET 1 tab by mouth twice daily 201 04/04/11 TRIMETHOPRIM-SULFAMETHOXAZOLE 28695085899 No Longer Active Umer Sherman MD Active BACTRIM DS 800-160 MG ORAL TABLET 1 tab by mouth twice daily X 10 DAYS TRIMETHOPRIM-SULFAMETHOXAZOLE 78689073191 No Longer Active Tesfaye Sherman MD Active AMOXICILLIN 500 MG ORAL CAPSULE 1 cap by mouth three times a day AMOXICILLIN 88324259530 No Longer Active Adriana Arredondo Active B-12 1000 MCG ORAL LOZENGE 1 tab po daily CYANO COBALAMIN 10810074173 Active Tesfaye Sherman MD Active VITAMIN D3 2000 UNIT ORAL TABLET 1 daily, for vitamin D deficien cy CHOLECALCIFEROL 24046469237 No Longer Active Tesfaye Sherman MD Active TIZANIDINE HCL 2 MG ORAL TABLET take 1-2 tablet by mo [facility] every day at bedtime at 9pm PRN TIZANIDINE HCL 86507570145 Active Tesfaye hewitt MD Active ZITHROMAX 250 MG ORAL TABLET 2 po today, then 1 po q days 2-5 20 15/02/10 AZITHROMYCIN 17382787709 No Longer Active Tesfaye Sherman MD Active BACTRIM DS 800-160 MG ORAL TABLET 1 tab by mouth twice daily 201 03/03/23 TRIMETHOPRIM-SULFAMETHOXAZOLE 43238567933 No Longer Active Umer Sherman MD Active PRELIEF 340 (65-50) MG (CA-P) ORAL TABLET CALCIUM GLYCEROPHOSPHATE 21981970253 Active Tesfaye Sherman MD Acti ve [facility] NIACIN FLUSH FREE 400-100 MG ORAL CAPSULE 1 daily NIACIN-INOSITOL 43572845303 Active Kayla Cooper MD Activ e DIFLUCAN 150 MG ORAL TABLET 1 qd FLUCONAZOL E 20518569081 No Longer Active Kayla Cooper MD Active FLUTICASONE PROPIONATE 50 MCG/ACT NASAL SUSPENSION 1 spray each nostril twice daily FLUTICASONE PROPIONATE 16837346429 Active Umer Sherman MD Active LOVASTATIN 20 MG ORAL TABLET Take 1 tablet by mouth daily LOVASTATIN 41935614097 No Longer Active Tesfaye Sherman MD Acti ve MELOXICAM 7.5 MG ORAL TABLET 1 tablet by mouth daily 2 MELOXICAM 76280304148 No Longer Active Tesfaye Sherman MD Acti ve GABAPENTIN 300 MG ORAL CAPSULE Take two tablets by mouth every e vening GABAPENTIN 92475440924 No Longer Active Edith Burch MD A ctive CLONAZEPAM 0.5 MG ORAL TABLET Take one tablet in the orning and 1.5 tablet at 7pm CLONAZEPAM 07747927745 Active Kayla Cooper MD Active BACLOFEN 10 MG ORAL TABLET Take one tablet by mouth three times a d ay BACLOFEN 96241766268 Active Kayla Cooper MD Active GABAPENTIN 300 MG ORAL CAPSULE Take two tablets by mouth every e vening GABAPENTIN 300 MG ORAL CAPSULE 709418 GABAPENTIN I nactive MELOXICAM 7.5 MG ORAL TABLET 1 tablet by mouth daily 2 MELOXICAM 7.5 MG ORAL TABLET 728138 MELOXICAM Inactive LOVASTATIN 20 MG ORAL TABLET Take 1 tablet by mouth daily LOVASTATIN 20 MG ORAL TABLET 897537 LOVASTATIN Inactive DIFLUCAN 150 MG ORAL TABLET 1 qd DIFLUCAN 150 MG ORAL TABLET 583567 FLUCONAZOLE Inactive VITAMIN D3 2000 UNIT ORAL TABLET 1 daily, for vitamin D deficien cy VITAMIN D3 2000 UNIT ORAL TABLET CHOLECALCIFEROL Inactive AMOXICILLIN 500 MG ORAL CAPSULE 1 cap by mouth three times a day AMOXICILLIN 500 MG ORAL CAPSULE 585700 AMOXICILLIN Inactive BACTRIM DS 800-160 MG ORAL TABLET 1 tab by mouth twice daily X 10 DAYS BACTRIM DS 800-160 MG ORAL TABLET 893810 TRIMETHOPRIM-SULFAMETHOXAZOLE Inactive TRIMETHOPRIM 100 MG ORAL TABLET 1/2 qd 7 TRIMETHOPRIM 100 MG ORAL TABLET 234606 TRIMETHOPRIM Inactive CETIRIZINE HCL 5 MG ORAL TABLET Take 1 tablet by mouth daily CETIRIZINE HCL 5 MG ORAL TABLET 9805545 CETIRIZINE HCL Inactive PRAMIPEXOLE DIHYDROCHLORIDE 0.125 MG ORAL TABLET take 1 tablet po qhs for restless leg syndrome. PRAMIPEXOLE DIHYD ROCHLORIDE 0.125 MG ORAL TABLET 611264 PRAMIPEXOLE DIHYDROCHLORIDE Inactive MIRTAZAPINE 15 MG ORAL TABLET 1/2 tab by mouth at bedtime. 03/13 MIRTAZAPINE 15 MG ORAL TABLET 950511 MIRTAZAPINE In active DIFLUCAN 100 MG ORAL TABLET 1 tablet by mouth daily X 3 DAYS 201 04/09/01 DIFLUCAN 100 MG ORAL TABLET 343734 FLUCONAZOLE Inac tive DIFLUCAN 100 MG ORAL TABLET 1 tablet by mouth every other da y for 2 doses DIFLUCAN 100 MG ORAL TABLET 146980 FLUCONAZOLE Inactive CEFTIN 250 MG ORAL TABLET 1 tablet twice daily x 7 days CEFTIN 250 MG ORAL TABLET CEFUROXIME AXETIL Inactive CYMBALTA 30 MG ORAL CAPSULE DELAYED RELEASE PARTICLES 1 cap by mouth daily with 60mg CYMBALTA 30 MG ORAL CAPSULE DELAYED RELEASE PARTICLES 890945 DULOXETINE HCL Inactive CYMBALTA 60 MG ORAL CAPSULE DELAYED RELEASE PARTICLES Take 1 tablet by mouth daily CYMBALTA 60 MG ORAL CAPSULE DELAYED RELEA SE PARTICLES 856847 DULOXETINE HCL Inactive FOSAMAX 70 MG ORAL TABLET 1 po qweek. Take 30min prio r to first food/drink. Avoid lying down x 1 hour. FOSAMAX 70 MG ORAL TA BLET 479958 ALENDRONATE SODIUM Inactive DIFLUCAN 100 MG ORAL TABLET 1 tablet by mouth daily 20 19/08/26 DIFLUCAN 100 MG ORAL TABLET 611762 FLUCONAZOLE Inactive PREDNISONE 20 MG ORAL TABLET 1 tab twice daily for 3 d ay, then one daily for three days PREDNISONE 20 MG ORAL TABLET 553679 PREDNIS ONE Inactive PROAIR HFA 108 (90 BASE) MCG/ACT INHALATION AEROSOL SO LUTION 1 puff every 6 hours as needed PROAIR HFA 108 (90 B ASE) MCG/ACT INHALATION AEROSOL SOLUTION ALBUTEROL SULFATE Inactive MECLIZINE HCL 25 MG ORAL TABLET one tab po qday prn dizziness 20 17/09/06 MECLIZINE HCL 25 MG ORAL TABLET 821108 MECLIZINE HCL Inactive PREDNISONE 20 MG ORAL TABLET 1 tablet by mouth twice d aily for 3 days, then 1 tablet daily for 3 days PREDNISONE 20 MG ORAL TA BLET 322609 PREDNISONE Inactive DIFLUCAN 100 MG ORAL TABLET 1 tablet by mouth daily 20 20/06/06 DIFLUCAN 100 MG ORAL TABLET 652293 FLUCONAZOLE Inactive BACTRIM DS 800-160 MG ORAL TABLET 1 tab by mouth twice daily 201 03/03/23 BACTRIM DS 800-160 MG ORAL TABLET 031005 TRIMETHOPRIM-SULFAMETHOXAZOLE Inactive ZITHROMAX 250 MG ORAL TABLET 2 po today, then 1 po q days 2-5 20 15/02/10 ZITHROMAX 250 MG ORAL TABLET 105810 AZITHROMYCIN Martell ctive BACTRIM DS 800-160 MG ORAL TABLET [...] a day AMOXICILLIN 500 MG ORAL CAPSULE 145327 AMOXICILLIN Inactive ZITHROMAX 250 MG ORAL TABLET 2 po today, then 1 po q days 2-5 20 20/04/28 ZITHROMAX 250 MG ORAL TABLET 213647 AZITHROMYCIN Mayela ctive DIFLUCAN 100 MG ORAL [...] -- NO DECISION MADE DURABLE POWER OF ONLINE TUTOR FOR HEALTHCARE DISCUSED WITH PATIENT -- FULL [...] sium - Chemistry sodium, serum 141 mmol/L 325-248 3062/01/26 carbon dioxide, venous blood 29.5 mmol/L 21.0-32 [...] mg/dL Encounters Code Encounter Date Provider Facility CPT-34942 [id number] Vst-Est Level IV 10:41:41 C BRIDGET Sherman MD [facility] CPT-91915 [id number] Vst-Est Level III 09:40:56 CDT Tesfaye Sherman MD [facility] CPT-23028 Level 4 Est. Patient 22:18:12 CDT Tesfaye pearson MD [facility] CPT-02016 Level 4 Est. Patient 14:44:33 JUNIOR MEDIA BUYER Tesfaye pearson MD [facility] CPT-81603 Level 4 Est. Patient 13:55:29 JUNIOR MEDIA BUYER Tesfaye pearson MD [facility] CPT-06747 Level 4 Est. Patient 17:07:34 JUNIOR MEDIA BUYER Tesfaye pearson MD [facility] CPT-87087 Level 4 Est. Patient 13:56:54 CDT Tesfaye pearson MD [facility] CPT-74482 Level 4 Est. Patient 13:24:25 CDT Chelsea sanz APRN [facility] CPT-60141 Level 4 Est. Patient 09:14:56 CDT Tesfaye pearson MD [facility]-97306 Level 4 Est. Patient 18:40:25 JUNIOR MEDIA BUYER Tesfaye pearson MD [facility] CPT-11065 Level 4 Est. Patient 18:13:07 JUNIOR MEDIA BUYER Tesfaye pearson MD [facility] CPT-16538 Level 3 Est. Patient 10:46:32 CDT Rj cotto DO [facility] CPT-06787 Level 4 Est. Patient 20:19:25 CDT Tesfaye pearson MD [facility] CPT-49784 Level 3 Est. Patient 09:07:31 CDT Tesfaye pearson MD [facility] CPT-86057 Level 4 Est. Patient 13:12:56 CDT Tesfaye pearson MD [facility] CPT-39008 Level 4 Est. Patient 21:24:55 JUNIOR MEDIA BUYER Tesfaye pearson MD [facility] CPT-88365 Level 3 Est. Patient 13:45:04 JUNIOR MEDIA BUYER Tesfaye pearson MD [facility] CPT-82457 Level 4 Est. Patient 13:50:45 CDT Tesfaye pearson MD [facility] CPT-25524 Level 3 Est. Patient 10:16:10 CDT Tesfaye pearson MD [facility] CPT-73812 Level 3 Est. Patient 16:36:07 JUNIOR MEDIA BUYER Kayla jameson MD [facility] CPT-66853 Level 4 Est. Patient 16:00:14 JUNIOR MEDIA BUYER Tesfaye pearson MD [facility] CPT-52156 Level 4 Est. Patient 11:02:24 JUNIOR MEDIA BUYER Tesfaye pearson MD [facility] CPT-85984 Level 3 Est. Patient 20:21:43 JUNIOR MEDIA BUYER Kayla jameson MD [facility] CPT-72672 Level 3 Est. Patient 13:27:28 JUNIOR MEDIA BUYER Kayla jameson MD [facility] CPT-60012 Level 4 Est. Patient 15:57:17 JUNIOR MEDIA BUYER Tesfaye pearson MD [facility] CPT-66983 Level 3 New Patient 13:25:47 CDT Tesfaye kidd MD [facility] CPT-43031 Level 3 New Patient 17:22:21 CDT J John angel MD [facility] Procedures Code Procedure Name Date Entry Date Standard Desc ription CPT-G0439 Subsequent Annual Wellness Exam 22:18:11 CDT CPT-77866 Bone Density - XRAY USE ONLY 11:43:58 CDT 2 CPT-71650 Bone Density - XRAY USE ONLY 10:05:16 CDT 2 CPT-75311 Prv Med New Pt 40-64 yrs 18:19:25 CDT 2016 CPT-14013 Foot, right, comp min 3V - XRAY USE ONLY 10:38:34 CDT CPT-G0439 Subsequent Annual Wellness Exam 13:55:04 CDT CPT-G0438 Initial Annual Wellness Exam 11:23:17 CD T CPT-J2930 Solu Medrol 125 mg (Methyl Prednisolone Sodium Succinate) 17:29:12 JUNIOR MEDIA BUYER CPT-87598 Abx/Therapy Injection 17:29:11 JUNIOR MEDIA BUYER CPT-J2930 Solu Medrol 125 mg (Methyl Prednisolone Sodium Succinate) 12:34:38 JUNIOR MEDIA BUYER CPT-J3420 Vitamin B12 1000mcg (Cyanocobalamin) 09:12:55 CDT CPT-J3420 Vitamin B12 1000mcg (Cyanocobalamin) 16:28:06 JUNIOR MEDIA BUYER CPT-90685 Venipuncture Draw Fee 08:39:53 CDT CPT-J3420 Vitamin B12 1000mcg (Cyanocobalamin) 08:46:22 CDT CPT-74018 Abx/Therapy Injection 08:46:22 CDT CPT-J3420 Vitamin B12 1000mcg (Cyanocobalamin) 08:41:26 CDT CPT-51979 Abx/Therapy Injection 08:41:26 CDT CPT-J3420 Vitamin B12 1000mcg (Cyanocobalamin) 08:57:15 CDT CPT-17717 Abx/Therapy Injection 08:57:15 CDT CPT-J3420 Vitamin B12 1000mcg (Cyanocobalamin) 10:59:03 CDT CPT-07885 Abx/Therapy Injection 10:59:03 CDT CPT-J3420 Vitamin B12 1000mcg (Cyanocobalamin) 15:05:39 CDT CPT-41699 Abx/Therapy Injection 15:05:39 CDT CPT-J3420 Vitamin B12 1000mcg (Cyanocobalamin) 13:50:45 CDT CPT-J3420 Vitamin B12 1000mcg (Cyanocobalamin) 08:48:55 CDT CPT-39910 Abx/Therapy Injection 08:48:55 CDT CPT-J3420 Vitamin B12 1000mcg (Cyanocobalamin) 09:14:54 CDT CPT-99242 Abx/Therapy Injection 09:14:54 CDT CPT-J3420 Vitamin B12 1000mcg (Cyanocobalamin) 09:06:06 CDT CPT-73339 Abx/Therapy Injection 09:06:06 CDT CPT-J3420 Vitamin B12 1000mcg (Cyanocobalamin) 09:49:14 CDT CPT-37572 Abx/Therapy Injection 09:49:14 CDT CPT-J3420 Vitamin B12 1000mcg (Cyanocobalamin) 09:10:30 JUNIOR MEDIA BUYER CPT-98636 Abx/Therapy Injection 09:10:30 JUNIOR MEDIA BUYER CPT-J3420 Vitamin B12 1000mcg (Cyanocobalamin) 09:11:07 JUNIOR MEDIA BUYER CPT-17626 Abx/Therapy Injection 09:11:07 JUNIOR MEDIA BUYER CPT-J3420 Vitamin B12 1000mcg (Cyanocobalamin) 09:57:03 JUNIOR MEDIA BUYER CPT-66532 Abx/Therapy Injection 09:57:03 JUNIOR MEDIA BUYER CPT-J3420 Vitamin B12 1000mcg (Cyanocobalamin) 09:23:21 JUNIOR MEDIA BUYER CPT-53046 Abx/Therapy Injection 09:23:21 JUNIOR MEDIA BUYER CPT-25191 Urine Dip (Floor Use Only) 20:21:44 JUNIOR MEDIA BUYER 201 02/12/11 CPT-04590 UA Dip Auto (Floor Use Only) 10:04:39 JUNIOR MEDIA BUYER 2 CPT-69477 Urine Dip (Floor Use Only) 13:27:28 JUNIOR MEDIA BUYER 201 02/12/01 CPT-94108 Bladder Scan 13:27:28 JUNIOR MEDIA BUYER CPT-52684 Abd single AP View 14:30:51 JUNIOR MEDIA BUYER CPT-OV Office Visit 10:15:43 CDT CPT-38191 Urine Dip (Floor Use Only) 17:22:21 CDT 201 02/09/02 CPT-67232 Bladder Scan 17:22:21 CDT
--- OUTSIDE RECORDS SUMMARY | 2020-05-05 12:34 | XMS REPORT | Clinical Summary ---
Author Author Talon, Jeri Wood Organization [employer] Address Unknown Phone Unavailable Allergies, Adverse Reactions, [...] MD Anxiety state, unspecified Spasticity 781.0 Active Tesafye Sherman MD Abnormal involuntary movements Pelvic Pain-Female [...] every other day for 2 doses FLUCONAZOLE 85267277974 Active Rj Moss DO Active CEFTIN 250 MG TAB 1 tablet twice daily x 7 days CEFUROXIME AXETIL 26781046899 Active Rj Moss DO Active DIFLUCAN 100 MG TAB 1 tablet by mouth daily X 3 DAYS 2 FLUCONAZOLE 43599841439 No Longer Active Rj Moss DO Active MIRTAZAPINE 15 MG ORAL TABS 1/2 tab by mouth at bedtime. MIRTAZAPINE 15348569400 No Longer Active Tesfaye Sherman MD Acti ve BACTRIM DS 800-160 MG TAB 1 tab by mouth twice daily 2 TRIMETHOPRIM-SULFAMETHOXAZOLE 31913674566 No Longer Active Tesfaye Sherman MD Active PRAMIPEXOLE DIHYDROCHLORIDE 0.125 MG ORAL TABS take 1 tablet po qhs for restless leg syndrome. PRAMIPEXOLE DIHYDROCHLORIDE 55336284033 No Longer Active Tesfaye Sherman MD Active MAGNESIUM 400 MG ORAL TABS 1 tab po daily MAGNESI UM 43306571972 Active Chelsea Barba APRN Active SUDAFED 24 HOUR 240 MG ORAL [id number] 1 tab po daily PSEUDOEPHEDRINE HCL 37508403941 Active Chelsea Barba APRN A ctive CETIRIZINE HCL 5 MG TABS Take 1 tablet by mouth daily CETIRIZINE HCL 96765967057 No Longer Active Chelsea Barba APRN Acti ve TRIMETHOPRIM 100 MG TABS 1/2 qd TRIMETHOPRIM 90217169527 No Longer Active Chelsea Barba APRN Active BACTRIM DS 800-160 MG TAB 1 tab by mouth twice daily 2 TRIMETHOPRIM-SULFAMETHOXAZOLE 87354306628 No Longer Active Tesfaye Sherman MD Active BACTRIM DS 800-160 MG TAB 1 tab by mouth twice daily X 10 DAYS 2 TRIMETHOPRIM-SULFAMETHOXAZOLE 72275803348 No Longer Active Umer Sherman MD Active AMOXICILLIN 500 MG CAPS 1 cap by mouth three times a day AMOXICILLIN 44160041808 No Longer Active Adriana Arredondo Active MECLIZINE HCL 25 MG TAB one tab po qday prn dizziness MECLIZINE HCL 15325451773 Active Tesfaye Sherman MD Active B-12 1000 MCG ORAL LOZG 1 tab po daily CYANOCOBAL STANTON 64494306848 Active Tesfaye Sherman MD Active VITAMIN D3 2000 UNIT TABS 1 daily, for vitamin D deficiency 2014 CHOLECALCIFEROL 76616677493 No Longer Active Tesfaye Sherman MD Active TIZANIDINE HCL 2 MG TABS take 1-2 tablet by mouth ev [place] day at bedtime at 9pm PRN TIZANIDINE HCL 78337531810 Active Tesfaye Owusu Active ZITHROMAX 250 MG TAB 2 po today, then 1 po q days 2-5 AZITHROMYCIN 72054872399 No Longer Active Tesfaye Sherman MD Acti ve BACTRIM DS 800-160 MG TAB 1 tab by mouth twice daily 2 TRIMETHOPRIM-SULFAMETHOXAZOLE 07104347791 No Longer Active Tesfaye Sherman MD Active PRELIEF 340 (65-50) MG (CA-P) ORAL TABS CALCIUM GLYCEROPHOSPHATE 39937370232 Active Tesfaye Sherman MD Active [facility] NIACIN FLUSH FREE 400-100 MG CAPS 1 daily NIACIN-INOSITOL 19363902834 Active Kayla Cooper MD Active DIFLUCAN 150 MG TABS 1 qd FLUCONAZOLE 89150 768357 No Longer Active Kayla Cooper MD Active FLUTICASONE PROPIONATE 50 MCG/ACT SUSP 1 spray each nostril twice daily FLUTICASONE PROPIONATE 65212537170 Active Tesfaye armenta MD Active LOVASTATIN 20 MG TABS Take 1 tablet by mouth daily LOVASTATIN 99942422684 No Longer Active Tesfaye Sherman MD Active MELOXICAM 7.5 MG TABS 1 tablet by mouth daily M ELOXICAM 41827541878 No Longer Active Tesfaye Sherman MD Active GABAPENTIN 300 MG CAPS Take two tablets by mouth every evening GABAPENTIN 48911244477 No Longer Active Edith Burch MD Active OXYCODONE-ACETAMINOPHEN 5-325 MG TABS Take one tablet by mouth every 6 hours as needed. Max 12 tabs/day as needed OXYCODONE-ACETAMINOP HEN 08675714270 Active Tesfaye Sherman MD Active CYMBALTA 60 MG CPEP Take 1 tablet by mouth daily D ULOXETINE HCL 71884738691 Active Kayla Cooper MD Active CLONAZEPAM 0.5 MG TABS Take one tablet in the morning and 1.5 table t at 7pm CLONAZEPAM 31910437886 Active Kayla Cooper MD Active BACLOFEN 10 MG TABS Take one tablet by mouth three times a day BACLOFEN 05864731730 Active Kayla Cooper MD Active GABAPENTIN 300 MG CAPS Take two tablets by mouth every evening GABAPENTIN 300 MG CAPS 014812 GABAPENTIN Inactive MELOXICAM 7.5 MG TABS 1 tablet by mouth daily MELOXICAM 7.5 MG TABS 194261 MELOXICAM Inactive LOVASTATIN 20 MG TABS Take 1 tablet by mouth daily 201 02/12/20 LOVASTATIN 20 MG TABS 586087 LOVASTATIN Inactive DIFLUCAN 150 MG TABS 1 qd DIFLUCAN 150 MG T ABS 562658 FLUCONAZOLE Inactive VITAMIN D3 2000 UNIT TABS 1 daily, for vitamin D deficiency 2014 VITAMIN D3 2000 UNIT TABS CHOLECALCIFEROL Inacti ve AMOXICILLIN 500 MG CAPS 1 cap by mouth three times a day AMOXICILLIN 500 MG CAPS 249798 AMOXICILLIN Inactive BACTRIM DS 800-160 MG TAB 1 tab by mouth twice daily X 10 DAYS 2 BACTRIM DS 800-160 MG TAB 19830105 TRIMETHOPRIM-SULFAMETH OXAZOLE Inactive TRIMETHOPRIM 100 MG TABS 1/2 qd TRIMETHOPRI M 100 MG TABS 968840 TRIMETHOPRIM Inactive CETIRIZINE HCL 5 MG TABS Take 1 tablet by mouth daily CETIRIZINE HCL 5 MG TABS 9294732 CETIRIZINE HCL Inactive PRAMIPEXOLE DIHYDROCHLORIDE 0.125 MG ORAL TABS take 1 tablet po qhs for restless leg syndrome. PRAMIPEXOLE DIHYDROC HLORIDE 0.125 MG ORAL TABS 899465 PRAMIPEXOLE DIHYDROCHLORIDE Inactive MIRTAZAPINE 15 MG ORAL TABS 1/2 tab by mouth at bedtime. MIRTAZAPINE 15 MG ORAL TABS 676909 MIRTAZAPINE Inactive DIFLUCAN 100 MG TAB 1 tablet by mouth daily X 3 DAYS 2 DIFLUCAN 100 MG TAB 801261 FLUCONAZOLE Inactive BACTRIM DS 800-160 MG TAB 1 tab by mouth twice daily 2 BACTRIM DS 800-160 MG TAB 185192 TRIMETHOPRIM-SULFAMETHOXAZOLE Inac tive ZITHROMAX 250 MG TAB 2 po today, then 1 po q days 2-5 ZITHROMAX 250 MG TAB 4353314 AZITHROMYCIN Inactive BACTRIM DS 800-160 MG TAB [...] mg/dL Encounters Code Encounter Date Provider Facility CPT-20940 Level 3 Est. Patient 10:46:32 CDT Rj cotto DO [facility] CPT-29979 Level 4 Est. Patient 20:19:25 CDT Tesfaye pearson MD [facility]-63255 Level 3 Est. Patient 09:07:31 CDT Tesfaye pearson MD [facility]-47998 Level 4 Est. Patient 13:12:56 CDT Tefsaye pearson MD [facility]-51723 Level 4 Est. Patient 21:24:55 HEAD BATCHER Tesfaye pearson MD [facility]-47976 Level 3 Est. Patient 13:45:04 HEAD BATCHER Tesfaye pearson MD [facility] CPT-75002 Level 4 Est. Patient 13:50:45 CDT Tesfaye pearson MD [facility]-17731 Level 3 Est. Patient 10:16:10 CDT Tesfaye pearson MD [facility] CPT-91698 Level 3 Est. Patient 16:36:07 HEAD BATCHER Kayla jameson MD [facility]-14181 Level 4 Est. Patient 16:00:14 HEAD BATCHER Tesfaye pearson MD [facility]-43390 Level 4 Est. Patient 11:02:24 HEAD BATCHER Tesfaye pearson MD [facility]-36557 Level 3 Est. Patient 20:21:43 HEAD BATCHER Kayla jameson MD [facility]-68801 Level 3 Est. Patient 13:27:28 HEAD BATCHER Kayla jameson MD [facility]-06923 Level 4 Est. Patient 15:57:17 HEAD BATCHER Tesfaye pearson MD [facility] CPT-50027 Level 3 New Patient 13:25:47 CDT Tesfaye kidd MD [facility] CPT-32399 Level 3 New Patient 17:22:21 CDT J John angel MD [facility] Procedures Code Procedure Name Date Entry Date Standard Desc ription CPT-G0438 Initial Annual Wellness Exam 11:23:17 CD T CPT-J2930 Solu Medrol 125 mg (Methyl Prednisolone Sodium Succinate) 17:29:12 HEAD BATCHER CPT-79211 Abx/Therapy Injection 17:29:11 HEAD BATCHER CPT-J2930 Solu Medrol 125 mg (Methyl Prednisolone Sodium Succinate) 12:34:38 HEAD BATCHER CPT-J3420 Vitamin B12 1000mcg (Cyanocobalamin) 09:12:55 CDT CPT-J3420 Vitamin B12 1000mcg (Cyanocobalamin) 16:28:06 HEAD BATCHER CPT-00564 Venipuncture Draw Fee 08:39:53 CDT CPT-J3420 Vitamin B12 1000mcg (Cyanocobalamin) 08:46:22 CDT CPT-61429 Abx/Therapy Injection 08:46:22 CDT CPT-J3420 Vitamin B12 1000mcg (Cyanocobalamin) 08:41:26 CDT CPT-03833 Abx/Therapy Injection 08:41:26 CDT CPT-J3420 Vitamin B12 1000mcg (Cyanocobalamin) 08:57:15 CDT CPT-02302 Abx/Therapy Injection 08:57:15 CDT CPT-J3420 Vitamin B12 1000mcg (Cyanocobalamin) 10:59:03 CDT CPT-21825 Abx/Therapy Injection 10:59:03 CDT CPT-J3420 Vitamin B12 1000mcg (Cyanocobalamin) 15:05:39 CDT CPT-46541 Abx/Therapy Injection 15:05:39 CDT CPT-J3420 Vitamin B12 1000mcg (Cyanocobalamin) 13:50:45 CDT CPT-J3420 Vitamin B12 1000mcg (Cyanocobalamin) 08:48:55 CDT CPT-97032 Abx/Therapy Injection 08:48:55 CDT CPT-J3420 Vitamin B12 1000mcg (Cyanocobalamin) 09:14:54 CDT CPT-52499 Abx/Therapy Injection 09:14:54 CDT CPT-J3420 Vitamin B12 1000mcg (Cyanocobalamin) 09:06:06 CDT CPT-81402 Abx/Therapy Injection 09:06:06 CDT CPT-J3420 Vitamin B12 1000mcg (Cyanocobalamin) 09:49:14 CDT CPT-51265 Abx/Therapy Injection 09:49:14 CDT CPT-J3420 Vitamin B12 1000mcg (Cyanocobalamin) 09:10:30 HEAD BATCHER CPT-89553 Abx/Therapy Injection 09:10:30 HEAD BATCHER CPT-J3420 Vitamin B12 1000mcg (Cyanocobalamin) 09:11:07 HEAD BATCHER CPT-12489 Abx/Therapy Injection 09:11:07 HEAD BATCHER CPT-J3420 Vitamin B12 1000mcg (Cyanocobalamin) 09:57:03 HEAD BATCHER CPT-93699 Abx/Therapy Injection 09:57:03 HEAD BATCHER CPT-J3420 Vitamin B12 1000mcg (Cyanocobalamin) 09:23:21 HEAD BATCHER CPT-94999 Abx/Therapy Injection 09:23:21 HEAD BATCHER CPT-14571 Urine Dip (Floor Use Only) 20:21:44 HEAD BATCHER 201 02/12/11 CPT-33276 UA Dip Auto (Floor Use Only) 10:04:39 HEAD BATCHER 2 CPT-32243 Urine Dip (Floor Use Only) 13:27:28 HEAD BATCHER 201 02/12/01 CPT-23939 Bladder Scan 13:27:28 HEAD BATCHER CPT-91929 Abd single AP View 14:30:51 HEAD BATCHER CPT-OV Office Visit 10:15:43 CDT CPT-32157 Urine Dip (Floor Use Only) 17:22:21 CDT 201 02/09/02 CPT-73605 Bladder Scan 17:22:21 CDT
--- OUTSIDE RECORDS SUMMARY | 2020-05-05 12:34 | XMS REPORT | Clinical Summary ---
Author Author Talon, Jeri Wood Organization [facility] Address Unknown Phone Unavailable Allergies, Adverse Reactions, [...] 6 hours as needed. Use sparingly OXYCODONE-ACETAMINOPHEN [id number] Active Tesfaye Sherman MD Active PREDNISONE 20 MG ORAL TABLET 1 tab twice daily for 3 d ay, then one daily for three days PREDNISONE 25275061843 No Longer Active Tesfaye Sherman MD Active PROAIR HFA 108 (90 BASE) MCG/ACT INHALATION AEROSOL SO LUTION 1 puff every 6 hours as needed ALBUTEROL SULFATE 73736034153 Active Occidental nda Raida Active MECLIZINE HCL 25 MG ORAL TABLET one 4 times a day as needed for dizziness MECLIZINE HCL 49187205379 Active Laurence Raida Active DIFLUCAN 100 MG ORAL TABLET 1 tablet by mouth daily FLUCONAZOLE 90840827536 Active Laurence Raida Active AMOXICILLIN 500 MG ORAL CAPSULE 1 cap by mouth three times a day AMOXICILLIN 20118999337 No Longer Active Laurence Raida Acti ve VENLAFAXINE HCL 75 MG ORAL TABLET 1 am 1/2 at noon VENLAFAXINE HCL 49243925409 Active Tesfaye Sherman MD Active DIFLUCAN 100 MG ORAL TABLET 1 tablet by mouth daily 20 19/08/26 FLUCONAZOLE 73164822875 No Longer Active Tesfaye Sherman MD Acti ve BACTRIM DS 800-160 MG ORAL TABLET 1 tab by mouth twice daily 201 05/10/28 TRIMETHOPRIM-SULFAMETHOXAZOLE 74484668735 No Longer Active Fer mirna Angelica Active FOSAMAX 70 MG ORAL TABLET 1 po qweek. Take 30min prio r to first food/drink. Avoid lying down x 1 hour. ALENDRONATE SODIUM 54250347 144 No Longer Active Laurence Lopezduyen Active REPHRESH PRO-B ORAL CAPSULE 1 tablet daily LACT OBACILLUS 26711680341 Active Edith Burch MD Active CYMBALTA 60 MG ORAL CAPSULE DELAYED RELEASE PARTICLES Take 1 tablet by mouth daily DULOXETINE HCL 28582339326 No Longer Active Edith Burch MD Active CYMBALTA 30 MG ORAL CAPSULE DELAYED RELEASE PARTICLES 1 cap by mouth daily with 60mg DULOXETINE HCL 98818396057 No Longer Active Jordan Burch MD Active FISH OIL 1000 MG ORAL CAPSULE DELAYED RELEASE 1 pill b y mouth daily for cholesterol OMEGA-3 FATTY ACIDS 22669347537 Active Cee Jaffe LPN Active RED YEAST RICE 600 MG ORAL CAPSULE 1 pill by mouth daily RED YEAST RICE EXTRACT 12747521084 Active Rosa Jaffe LPN Activ e DIFLUCAN 100 MG ORAL TABLET 1 tablet by mouth daily 20 19/03/05 FLUCONAZOLE 38114506598 No Longer Active Tesfaye Sherman MD Acti ve BACTRIM DS 800-160 MG ORAL TABLET 1 tab by mouth twice daily 201 05/06/28 TRIMETHOPRIM-SULFAMETHOXAZOLE 12564880055 No Longer Active Umer Sherman MD Active BACTRIM DS 800-160 MG ORAL TABLET 1 tab by mouth twice daily 201 05/04/15 TRIMETHOPRIM-SULFAMETHOXAZOLE 70289802274 No Longer Active Umer Sherman MD Active DIFLUCAN 150 MG ORAL TABLET 1 tablet by mouth daily 20 18/09/20 FLUCONAZOLE 69347665301 No Longer Active Tesfaye Sherman MD Acti ve BACTRIM DS 800-160 MG ORAL TABLET 1 tab by mouth twice daily 201 04/13/17 TRIMETHOPRIM-SULFAMETHOXAZOLE 64230082070 No Longer Active Umer Sherman MD Active ROPINIROLE HCL 0.25 MG ORAL TABLET 1 TAB PO Q HS ROPINIROLE HCL 84923980692 Active Tesfaye Sherman MD Active CEFTIN 250 MG ORAL TABLET 1 tablet twice daily x 7 days CEFUROXIME AXETIL 50625430940 No Longer Active Tesfaye Sherman MD Active DIFLUCAN 100 MG ORAL TABLET 1 tablet by mouth every other da y for 2 doses FLUCONAZOLE 08666991584 No Longer Active Tesfaye barron MD Active DIFLUCAN 100 MG ORAL TABLET 1 tablet by mouth daily X 3 DAYS 201 04/09/01 FLUCONAZOLE 26453244787 No Longer Active Rj Lyons tive MIRTAZAPINE 15 MG ORAL TABLET 1/2 tab by mouth at bedtime. 03/13 MIRTAZAPINE 95980458420 No Longer Active Tesfaye Sherman MD Active BACTRIM DS 800-160 MG ORAL TABLET 1 tab by mouth twice daily 201 04/09/01 TRIMETHOPRIM-SULFAMETHOXAZOLE 01580696615 No Longer Active Umer Sherman MD Active PRAMIPEXOLE DIHYDROCHLORIDE 0.125 MG ORAL TABLET take 1 tablet po qhs for restless leg syndrome. PRAMIPEXOLE DIHYDROCHLORI DE 95126181386 No Longer Active Tesfaye Sherman MD Active MAGNESIUM 400 MG ORAL TABLET 1 tab po daily MAGNE SIUM 86985227428 Active Chelsea Barba APRN Active SUDAFED 24 HOUR 240 MG ORAL TABLET EXTENDED RELEASE 24 HOUR 1 tab po daily PSEUDOEPHEDRINE HCL 38262713268 Active Chelsea NAPOLES RN Active CETIRIZINE HCL 5 MG ORAL TABLET Take 1 tablet by mouth daily CETIRIZINE HCL 84239386520 No Longer Active Chelsea Barba APRN Ac tive TRIMETHOPRIM 100 MG ORAL TABLET 1/2 qd TRIM ETHOPRIM 76203383333 No Longer Active Chelsea Barba APRN Active BACTRIM DS 800-160 MG ORAL TABLET 1 tab by mouth twice daily 201 04/04/11 TRIMETHOPRIM-SULFAMETHOXAZOLE 69275484418 No Longer Active Umer Sherman MD Active BACTRIM DS 800-160 MG ORAL TABLET 1 tab by mouth twice daily X 10 DAYS TRIMETHOPRIM-SULFAMETHOXAZOLE 42402531268 No Longer Active Tesfaye Sherman MD Active AMOXICILLIN 500 MG ORAL CAPSULE 1 cap by mouth three times a day AMOXICILLIN 66718460073 No Longer Active Adriana Arredondo Active MECLIZINE HCL 25 MG ORAL TABLET one tab po qday prn dizziness 09/08 MECLIZINE HCL 84083428006 Active Tesfaye Sherman MD Active B-12 1000 MCG ORAL LOZENGE 1 tab po daily CYANO COBALAMIN 33227584287 Active Tesfaye Sherman MD Active VITAMIN D3 2000 UNIT ORAL TABLET 1 daily, for vitamin D deficien cy CHOLECALCIFEROL 86565225942 No Longer Active Tesfaye Sherman MD Active TIZANIDINE HCL 2 MG ORAL TABLET take 1-2 tablet by mo [facility] every day at bedtime at 9pm PRN TIZANIDINE HCL 33773291747 Active Tesfaye hewitt MD Active ZITHROMAX 250 MG ORAL TABLET 2 po today, then 1 po q days 2-5 20 15/02/10 AZITHROMYCIN 77173302834 No Longer Active Tesfaye Sherman MD Active BACTRIM DS 800-160 MG ORAL TABLET 1 tab by mouth twice daily 201 03/03/23 TRIMETHOPRIM-SULFAMETHOXAZOLE 43110886186 No Longer Active Umer Sherman MD Active PRELIEF 340 (65-50) MG (CA-P) ORAL TABLET CALCIUM GLYCEROPHOSPHATE 45449498305 Active Tesfaye Sherman MD Acti ve [facility] NIACIN FLUSH FREE 400-100 MG ORAL CAPSULE 1 daily NIACIN-INOSITOL 62929249023 Active Kayla Cooper MD Activ e DIFLUCAN 150 MG ORAL TABLET 1 qd FLUCONAZOL E 76021926384 No Longer Active Kayla Cooper MD Active FLUTICASONE PROPIONATE 50 MCG/ACT NASAL SUSPENSION 1 spray each nostril twice daily FLUTICASONE PROPIONATE 76128611812 Active D patricia Sherman MD Active LOVASTATIN 20 MG ORAL TABLET Take 1 tablet by mouth daily LOVASTATIN 47835266466 No Longer Active Tesfaye Sherman MD Acti ve MELOXICAM 7.5 MG ORAL TABLET 1 tablet by mouth daily 2 MELOXICAM 69200339121 No Longer Active Tesfaye Sherman MD Acti ve GABAPENTIN 300 MG ORAL CAPSULE Take two tablets by mouth every e vening GABAPENTIN 12394632600 No Longer Active Edith Burch MD A ctive CLONAZEPAM 0.5 MG ORAL TABLET Take one tablet in the m orning and 1.5 tablet at 7pm CLONAZEPAM 73301406139 Active Kayla Cooper MD Active BACLOFEN 10 MG ORAL TABLET Take one tablet by mouth three times a d ay BACLOFEN 25885612703 Active Kayla Cooper MD Active GABAPENTIN 300 MG ORAL CAPSULE Take two tablets by mouth every e vening GABAPENTIN 300 MG ORAL CAPSULE 211723 GABAPENTIN I nactive MELOXICAM 7.5 MG ORAL TABLET 1 tablet by mouth daily 2 MELOXICAM 7.5 MG ORAL TABLET 019870 MELOXICAM Inactive LOVASTATIN 20 MG ORAL TABLET Take 1 tablet by mouth daily LOVASTATIN 20 MG ORAL TABLET 642127 LOVASTATIN Inactive DIFLUCAN 150 MG ORAL TABLET 1 qd DIFLUCAN 150 MG ORAL TABLET 806626 FLUCONAZOLE Inactive VITAMIN D3 2000 UNIT ORAL TABLET 1 daily, for vitamin D deficien cy VITAMIN D3 2000 UNIT ORAL TABLET CHOLECALCIFEROL Inactive AMOXICILLIN 500 MG ORAL CAPSULE 1 cap by mouth three times a day AMOXICILLIN 500 MG ORAL CAPSULE 686250 AMOXICILLIN Inactive BACTRIM DS 800-160 MG ORAL TABLET 1 tab by mouth twice daily X 10 DAYS BACTRIM DS 800-160 MG ORAL TABLET 562740 TRIMETHOPRIM-SULFAMETHOXAZOLE Inactive TRIMETHOPRIM 100 MG ORAL TABLET 1/2 qd 7 TRIMETHOPRIM 100 MG ORAL TABLET 075167 TRIMETHOPRIM Inactive CETIRIZINE HCL 5 MG ORAL TABLET Take 1 tablet by mouth daily CETIRIZINE HCL 5 MG ORAL TABLET 8676180 CETIRIZINE HCL Inactive PRAMIPEXOLE DIHYDROCHLORIDE 0.125 MG ORAL TABLET take 1 tablet po qhs for restless leg syndrome. PRAMIPEXOLE DIHYD ROCHLORIDE 0.125 MG ORAL TABLET 536704 PRAMIPEXOLE DIHYDROCHLORIDE Inactive MIRTAZAPINE 15 MG ORAL TABLET 1/2 tab by mouth at bedtime. 03/13 MIRTAZAPINE 15 MG ORAL TABLET 029571 MIRTAZAPINE In active DIFLUCAN 100 MG ORAL TABLET 1 tablet by mouth daily X 3 DAYS 201 04/09/01 DIFLUCAN 100 MG ORAL TABLET 977070 FLUCONAZOLE Inac tive DIFLUCAN 100 MG ORAL TABLET 1 tablet by mouth every other da y for 2 doses DIFLUCAN 100 MG ORAL TABLET 628565 FLUCONAZOLE Inactive CEFTIN 250 MG ORAL TABLET 1 tablet twice daily x 7 days CEFTIN 250 MG ORAL TABLET 275428 CEFUROXIME AXETIL Inactive CYMBALTA 30 MG ORAL CAPSULE DELAYED RELEASE PARTICLES 1 cap by mouth daily with 60mg CYMBALTA 30 MG ORAL CAPSULE DELAYED RELEASE PARTICLES 941806 DULOXETINE HCL Inactive CYMBALTA 60 MG ORAL CAPSULE DELAYED RELEASE PARTICLES Take 1 tablet by mouth daily CYMBALTA 60 MG ORAL CAPSULE DELAYED RELEA SE PARTICLES 288544 DULOXETINE HCL Inactive FOSAMAX 70 MG ORAL TABLET 1 po qweek. Take 30min prio r to first food/drink. Avoid lying down x 1 hour. FOSAMAX 70 MG ORAL TA BLET 069494 ALENDRONATE SODIUM Inactive DIFLUCAN 100 MG ORAL TABLET 1 tablet by mouth daily 19/08/26 DIFLUCAN 100 MG ORAL TABLET 839303 FLUCONAZOLE Inactive PREDNISONE 20 MG ORAL TABLET 1 tab twice daily for 3 d ay, then one daily for three days PREDNISONE 20 MG ORAL TABLET 752990 PREDNIS ONE Inactive BACTRIM DS 800-160 MG ORAL TABLET 1 tab by mouth twice daily 201 03/03/23 BACTRIM DS 800-160 MG ORAL TABLET 19830105 TRIMETHOPRIM-SULFAMETHOXAZOLE Inactive ZITHROMAX 250 MG ORAL TABLET 2 po today, then 1 po q days 2-5 20 15/02/10 ZITHROMAX 250 MG ORAL TABLET 006599 AZITHROMYCIN Mayela ctive BACTRIM DS 800-160 MG ORAL TABLET 1 tab by mouth twice daily 201 04/04/11 BACTRIM DS 800-160 MG ORAL TABLET 19830105 TRIMETHOPRIM-SULFAMETHOXAZOLE Inactive BACTRIM DS 800-160 MG ORAL TABLET 1 tab by mouth twice daily 201 04/09/01 BACTRIM DS 800-160 MG ORAL TABLET 353752 TRIMETHOPRIM-SULFAMETHOXAZOLE Inactive BACTRIM DS 800-160 MG ORAL TABLET 1 tab by mouth twice daily 201 04/13/17 BACTRIM DS 800-160 MG ORAL TABLET 211586 TRIMETHOPRIM-SULFAMETHOXAZOLE Inactive DIFLUCAN 150 MG ORAL TABLET 1 tablet by mouth daily 20 18/09/20 DIFLUCAN 150 MG ORAL TABLET 19760712 FLUCONAZOLE Inactive BACTRIM DS 800-160 MG ORAL TABLET 1 tab by mouth twice daily 201 05/04/15 BACTRIM DS 800-160 MG ORAL TABLET 473558 TRIMETHOPRIM-SULFAMETHOXAZOLE Inactive BACTRIM DS 800-160 MG ORAL TABLET 1 tab by mouth twice daily 201 05/06/28 BACTRIM DS 800-160 MG ORAL TABLET 311161 TRIMETHOPRIM-SULFAMETHOXAZOLE Inactive DIFLUCAN 100 MG ORAL TABLET 1 tablet by mouth daily 20 19/03/05 DIFLUCAN 100 MG ORAL TABLET 19760711 FLUCONAZOLE Inactive BACTRIM DS 800-160 MG ORAL TABLET 1 tab by mouth twice daily 201 05/10/28 BACTRIM DS 800-160 MG ORAL TABLET 19830105 TRIMETHOPRIM-SULFAMETHOXAZOLE Inactive AMOXICILLIN 500 MG ORAL CAPSULE 1 cap by mouth three times a day AMOXICILLIN 500 MG ORAL CAPSULE 807239 AMOXICILLIN Inactive Advance Directives Directive Description Start Date PERMISSION TO SHARE DISCUSSED WITH PATIENT -- NO DECISION MADE DURABLE POWER OF FIREFIGHTER FOR HEALTHCARE Vital Signs Date Name Value [...] ... - Chemistry sodium, serum 144 mmol/L 769-588 8883/06/14 carbon dioxide, venous blood 29.4 mmol/L 21.0-32 .0 potassium, serum 4.4 mmol/L 3.5-5.2 chloride, serum 108 mmol/L 98-107 blood glucose 100 mg/dL 65-110 urea nitrogen, blood 9 mg/dL 7-18 creatinine, serum 0.67 mg/dL 0.55-1.30 alanine aminotransferase (SGPT), serum 24 U/L 12-78 aspartate aminotransferase (SGOT), serum 15 U/L 15-37 calcium, serum 9.3 mg/dL 8.5-10.1 bilirubin, serum, total 0.50 mg/dL 0.00-1.00 cholesterol, serum 268 mg/dL 604-354 0960/06/14 triglyceride, serum, fasting 126 mg/dL 30-200 HDL cholesterol, serum 51 mg/dL 32-96 LDL cholesterol, serum 192 mg/dL 0-130 TSH 0.83 m[iU]/mL 0.36-3.74 thyroxine, serum, free 1.03 ng/dL 0.76-1.46 uric acid, serum 3.2 mg/dL 2.6-7.2 Lab Report: Comp. Metabolic Panel, [facility] - Chemistry sodium, serum 141 mmol/L 532-185 8593/01/26 carbon dioxide, venous blood 29.5 mmol/L 21.0-32 [...] mg/dL Encounters Code Encounter Date Provider Facility CPT-74868 Level 4 Est. Patient 13:55:29 FUEL HOUSE ATTENDANT Tesfaye pearson MD [facility]-23186 Level 4 Est. Patient 17:07:34 FUEL HOUSE ATTENDANT Tesfaye pearson MD [facility]-51809 Level 4 Est. Patient 13:56:54 CDT Tesfaye pearson MD [facility]-25650 Level 4 Est. Patient 13:24:25 CDT Chelsea Cagle rosalbabebeto MERCADO [facility]-75298 Level 4 Est. Patient 09:14:56 CDT Tesfaye pearson MD [facility]-83655 Level 4 Est. Patient 18:40:25 FUEL HOUSE ATTENDANT Tesfaye pearson MD [facility]-11283 Level 4 Est. Patient 18:13:07 FUEL HOUSE ATTENDANT Tesfaye pearson MD [facility]-66726 Level 3 Est. Patient 10:46:32 CDT Rj cotto DO [facility]-86461 Level 4 Est. Patient 20:19:25 CDT Tesfaye pearson MD [facility]-28708 Level 3 Est. Patient 09:07:31 CDT Tesfaye pearson MD [facility]-86916 Level 4 Est. Patient 13:12:56 CDT Tesfaye pearson MD [facility]-74625 Level 4 Est. Patient 21:24:55 FUEL HOUSE ATTENDANT Tesfaye pearson MD [facility]-65094 Level 3 Est. Patient 13:45:04 FUEL HOUSE ATTENDANT Tesfaye pearson MD [facility]-91770 Level 4 Est. Patient 13:50:45 CDT Tesfaye pearson MD [facility] CPT-04772 Level 3 Est. Patient 10:16:10 CDT Tesfaye pearson MD [facility] CPT-63504 Level 3 Est. Patient 16:36:07 FUEL HOUSE ATTENDANT Kayla jameson MD [facility] CPT-76165 Level 4 Est. Patient 16:00:14 FUEL HOUSE ATTENDANT Tesfaye pearson MD [facility] CPT-93107 Level 4 Est. Patient 11:02:24 FUEL HOUSE ATTENDANT Tesfaye pearson MD [facility] CPT-46859 Level 3 Est. Patient 20:21:43 FUEL HOUSE ATTENDANT Kayla jameson MD [facility] CPT-90233 Level 3 Est. Patient 13:27:28 FUEL HOUSE ATTENDANT Kayla jameson MD [facility] CPT-02490 Level 4 Est. Patient 15:57:17 FUEL HOUSE ATTENDANT Tesfaye pearson MD [facility] CPT-93198 Level 3 New Patient 13:25:47 CDT Tesfaye kidd MD [facility] CPT-44386 Level 3 New Patient 17:22:21 CDT Kayla angel MD [facility] Procedures Code Procedure Name Date Entry Date Standard Desc ription CPT-19010 Bone Density - XRAY USE ONLY 11:43:58 CDT 2 CPT-75430 Bone Density - XRAY USE ONLY 10:05:16 CDT 2 CPT-76628 Prv Med New Pt 40-64 yrs 18:19:25 CDT 2016 CPT-97671 Foot, right, comp min 3V - XRAY USE ONLY 10:38:34 CDT CPT-G0439 Subsequent Annual Wellness Exam 13:55:04 CDT CPT-G0438 Initial Annual Wellness Exam 11:23:17 CD T CPT-J2930 Solu Medrol 125 mg (Methyl Prednisolone Sodium Succinate) 17:29:12 FUEL HOUSE ATTENDANT CPT-40541 Abx/Therapy Injection 17:29:11 FUEL HOUSE ATTENDANT CPT-J2930 Solu Medrol 125 mg (Methyl Prednisolone Sodium Succinate) 12:34:38 FUEL HOUSE ATTENDANT CPT-J3420 Vitamin B12 1000mcg (Cyanocobalamin) 09:12:55 CDT CPT-J3420 Vitamin B12 1000mcg (Cyanocobalamin) 16:28:06 FUEL HOUSE ATTENDANT CPT-29526 Venipuncture Draw Fee 08:39:53 CDT CPT-J3420 Vitamin B12 1000mcg (Cyanocobalamin) 08:46:22 CDT CPT-61188 Abx/Therapy Injection 08:46:22 CDT CPT-J3420 Vitamin B12 1000mcg (Cyanocobalamin) 08:41:26 CDT CPT-69113 Abx/Therapy Injection 08:41:26 CDT CPT-J3420 Vitamin B12 1000mcg (Cyanocobalamin) 08:57:15 CDT CPT-68735 Abx/Therapy Injection 08:57:15 CDT CPT-J3420 Vitamin B12 1000mcg (Cyanocobalamin) 10:59:03 CDT CPT-91171 Abx/Therapy Injection 10:59:03 CDT CPT-J3420 Vitamin B12 1000mcg (Cyanocobalamin) 15:05:39 CDT CPT-55035 Abx/Therapy Injection 15:05:39 CDT CPT-J3420 Vitamin B12 1000mcg (Cyanocobalamin) 13:50:45 CDT CPT-J3420 Vitamin B12 1000mcg (Cyanocobalamin) 08:48:55 CDT CPT-12152 Abx/Therapy Injection 08:48:55 CDT CPT-J3420 Vitamin B12 1000mcg (Cyanocobalamin) 09:14:54 CDT CPT-06522 Abx/Therapy Injection 09:14:54 CDT CPT-J3420 Vitamin B12 1000mcg (Cyanocobalamin) 09:06:06 CDT CPT-76259 Abx/Therapy Injection 09:06:06 CDT CPT-J3420 Vitamin B12 1000mcg (Cyanocobalamin) 09:49:14 CDT CPT-06011 Abx/Therapy Injection 09:49:14 CDT CPT-J3420 Vitamin B12 1000mcg (Cyanocobalamin) 09:10:30 FUEL HOUSE ATTENDANT CPT-56765 Abx/Therapy Injection 09:10:30 FUEL HOUSE ATTENDANT CPT-J3420 Vitamin B12 1000mcg (Cyanocobalamin) 09:11:07 FUEL HOUSE ATTENDANT CPT-64501 Abx/Therapy Injection 09:11:07 FUEL HOUSE ATTENDANT CPT-J3420 Vitamin B12 1000mcg (Cyanocobalamin) 09:57:03 FUEL HOUSE ATTENDANT CPT-36914 Abx/Therapy Injection 09:57:03 FUEL HOUSE ATTENDANT CPT-J3420 Vitamin B12 1000mcg (Cyanocobalamin) 09:23:21 FUEL HOUSE ATTENDANT CPT-73839 Abx/Therapy Injection 09:23:21 FUEL HOUSE ATTENDANT CPT-47521 Urine Dip (Floor Use Only) 20:21:44 FUEL HOUSE ATTENDANT 201 02/12/11 CPT-70200 UA Dip Auto (Floor Use Only) 10:04:39 FUEL HOUSE ATTENDANT 2 CPT-24213 Urine Dip (Floor Use Only) 13:27:28 FUEL HOUSE ATTENDANT 201 02/12/01 CPT-72371 Bladder Scan 13:27:28 FUEL HOUSE ATTENDANT CPT-37241 Abd single AP View 14:30:51 FUEL HOUSE ATTENDANT CPT-OV Office Visit 10:15:43 CDT CPT-75689 Urine Dip (Floor Use Only) 17:22:21 CDT 201 02/09/02 CPT-08474 Bladder Scan 17:22:21 CDT
--- OUTSIDE RECORDS SUMMARY | 2020-05-05 12:34 | XMS REPORT | Clinical Summary ---
Author Author Jeri Hanley Organization [employer] Address Unknown Phone Unavailable Allergies, Adverse Reactions, [...] every other day for 2 doses FLUCONAZOLE 79933689454 Active Rj Moss DO Active CEFTIN 250 MG TAB 1 tablet twice daily x 7 days CEFUROXIME AXETIL 17055592024 Active Rj Moss DO Active DIFLUCAN 100 MG TAB 1 tablet by mouth daily X 3 DAYS 2 FLUCONAZOLE 02172081625 No Longer Active Rj Moss DO Active MIRTAZAPINE 15 MG ORAL TABS 1/2 tab by mouth at bedtime. MIRTAZAPINE 47568699450 No Longer Active Tesfaye Sherman MD Acti ve BACTRIM DS 800-160 MG TAB 1 tab by mouth twice daily 2 TRIMETHOPRIM-SULFAMETHOXAZOLE 11250520184 No Longer Active Tesfaye Sherman MD Active PRAMIPEXOLE DIHYDROCHLORIDE 0.125 MG ORAL TABS take 1 tablet po qhs for restless leg syndrome. PRAMIPEXOLE DIHYDROCHLORIDE 03031252644 No Longer Active Tesfaye Sherman MD Active MAGNESIUM 400 MG ORAL TABS 1 tab po daily MAGNESI UM 63252532641 Active Chelsea Barba APRN Active SUDAFED 24 HOUR 240 MG ORAL [id number] 1 tab po daily PSEUDOEPHEDRINE HCL 45199554327 Active Chelsea Barba APRN A ctive CETIRIZINE HCL 5 MG TABS Take 1 tablet by mouth daily CETIRIZINE HCL 06252139909 No Longer Active Chelsea Barba APRN Acti ve TRIMETHOPRIM 100 MG TABS 1/2 qd TRIMETHOPRIM 81247936109 No Longer Active Chelsea Barba APRN Active BACTRIM DS 800-160 MG TAB 1 tab by mouth twice daily 2 TRIMETHOPRIM-SULFAMETHOXAZOLE 73992672657 No Longer Active Tesfaye Sherman MD Active BACTRIM DS 800-160 MG TAB 1 tab by mouth twice daily X 10 DAYS 2 TRIMETHOPRIM-SULFAMETHOXAZOLE 75542530800 No Longer Active Umer Sherman MD Active AMOXICILLIN 500 MG CAPS 1 cap by mouth three times a day AMOXICILLIN 35738024396 No Longer Active Adriana Arredondo Active MECLIZINE HCL 25 MG TAB one tab po qday prn dizziness MECLIZINE HCL 79674098178 Active Tesfaye Sherman MD Active B-12 1000 MCG ORAL LOZG 1 tab po daily CYANOCOBAL STANTON 72388335019 Active Tesfaye Sherman MD Active VITAMIN D3 2000 UNIT TABS 1 daily, for vitamin D deficiency 2014 CHOLECALCIFEROL 48671174323 No Longer Active Tesfaye Sherman MD Active TIZANIDINE HCL 2 MG TABS take 1-2 tablet by mouth ev [place] day at bedtime at 9pm PRN TIZANIDINE HCL 35219959029 Active Tesfaye Owusu Active ZITHROMAX 250 MG TAB 2 po today, then 1 po q days 2-5 AZITHROMYCIN 38454686680 No Longer Active Tesfaye Sherman MD Acti ve BACTRIM DS 800-160 MG TAB 1 tab by mouth twice daily 2 TRIMETHOPRIM-SULFAMETHOXAZOLE 75346470319 No Longer Active Tesfaye Sherman MD Active PRELIEF 340 (65-50) MG (CA-P) ORAL TABS CALCIUM GLYCEROPHOSPHATE 43030062725 Active Tesfaye Sherman MD Active [facility] NIACIN FLUSH FREE 400-100 MG CAPS 1 daily NIACIN-INOSITOL 64401136482 Active Kayla Cooper MD Active DIFLUCAN 150 MG TABS 1 qd FLUCONAZOLE 97869 565081 No Longer Active Kayla Cooper MD Active FLUTICASONE PROPIONATE 50 MCG/ACT SUSP 1 spray each nostril twice daily FLUTICASONE PROPIONATE 44885608895 Active Tesfaye armenta MD Active LOVASTATIN 20 MG TABS Take 1 tablet by mouth daily LOVASTATIN 47369439735 No Longer Active Tesfaye Sherman MD Active MELOXICAM 7.5 MG TABS 1 tablet by mouth daily M ELOXICAM 52895233501 No Longer Active Tesfaye Sherman MD Active GABAPENTIN 300 MG CAPS Take two tablets by mouth every evening GABAPENTIN 67382961151 No Longer Active Edith Burch MD Active OXYCODONE-ACETAMINOPHEN 5-325 MG TABS Take one tablet by mouth every 6 hours as needed. Max 12 tabs/day as needed OXYCODONE-ACETAMINOP HEN 19858438459 Active Tesfaye Sherman MD Active CYMBALTA 60 MG CPEP Take 1 tablet by mouth daily D ULOXETINE HCL 23418425179 Active Kayla Cooper MD Active CLONAZEPAM 0.5 MG TABS Take one tablet in the morning and 1.5 table t at 7pm CLONAZEPAM 61629814986 Active Kayla Cooper MD Active BACLOFEN 10 MG TABS Take one tablet by mouth three times a day BACLOFEN 58721697761 Active Kayla Cooper MD Active GABAPENTIN 300 MG CAPS Take two tablets by mouth every evening GABAPENTIN 300 MG CAPS 568765 GABAPENTIN Inactive MELOXICAM 7.5 MG TABS 1 tablet by mouth daily MELOXICAM 7.5 MG TABS 231234 MELOXICAM Inactive LOVASTATIN 20 MG TABS Take 1 tablet by mouth daily 201 02/12/20 LOVASTATIN 20 MG TABS 701263 LOVASTATIN Inactive DIFLUCAN 150 MG TABS 1 qd DIFLUCAN 150 MG T ABS 113499 FLUCONAZOLE Inactive VITAMIN D3 2000 UNIT TABS 1 daily, for vitamin D deficiency 2014 VITAMIN D3 2000 UNIT TABS CHOLECALCIFEROL Inacti ve AMOXICILLIN 500 MG CAPS 1 cap by mouth three times a day AMOXICILLIN 500 MG CAPS 277633 AMOXICILLIN Inactive BACTRIM DS 800-160 MG TAB 1 tab by mouth twice daily X 10 DAYS 2 BACTRIM DS 800-160 MG TAB 19830105 TRIMETHOPRIM-SULFAMETH OXAZOLE Inactive TRIMETHOPRIM 100 MG TABS 1/2 qd TRIMETHOPRI M 100 MG TABS 603656 TRIMETHOPRIM Inactive CETIRIZINE HCL 5 MG TABS Take 1 tablet by mouth daily CETIRIZINE HCL 5 MG TABS 5844375 CETIRIZINE HCL Inactive PRAMIPEXOLE DIHYDROCHLORIDE 0.125 MG ORAL TABS take 1 tablet po qhs for restless leg syndrome. PRAMIPEXOLE DIHYDROC HLORIDE 0.125 MG ORAL TABS 294176 PRAMIPEXOLE DIHYDROCHLORIDE Inactive MIRTAZAPINE 15 MG ORAL TABS 1/2 tab by mouth at bedtime. MIRTAZAPINE 15 MG ORAL TABS 920374 MIRTAZAPINE Inactive DIFLUCAN 100 MG TAB 1 tablet by mouth daily X 3 DAYS 2 DIFLUCAN 100 MG TAB 687913 FLUCONAZOLE Inactive BACTRIM DS 800-160 MG TAB 1 tab by mouth twice daily 2 BACTRIM DS 800-160 MG TAB 606334 TRIMETHOPRIM-SULFAMETHOXAZOLE Inac tive ZITHROMAX 250 MG TAB 2 po today, then 1 po q days 2-5 ZITHROMAX 250 MG TAB 8533050 AZITHROMYCIN Inactive BACTRIM DS 800-160 MG TAB [...] mg/dL Encounters Code Encounter Date Provider Facility CPT-08266 Level 3 Est. Patient 10:46:32 CDT Rj cotto DO [facility] CPT-30476 Level 4 Est. Patient 20:19:25 CDT Tesfaye pearson MD [facility] CPT-71210 Level 3 Est. Patient 09:07:31 CDT Tesfaye pearson MD [facility]-24592 Level 4 Est. Patient 13:12:56 CDT Tesfaye pearson MD [facility]-86740 Level 4 Est. Patient 21:24:55 SKEINER Tesfaye pearson MD [facility]-85447 Level 3 Est. Patient 13:45:04 SKEINER Tesfaye pearson MD [facility] CPT-27927 Level 4 Est. Patient 13:50:45 CDT Tesfaye pearson MD [facility] CPT-85034 Level 3 Est. Patient 10:16:10 CDT Tesfaye pearson MD [facility]-06147 Level 3 Est. Patient 16:36:07 SKEINER Kayla jameson MD [facility]-57139 Level 4 Est. Patient 16:00:14 SKEINER Tesfaye pearson MD [facility]-86323 Level 4 Est. Patient 11:02:24 SKEINER Tesfaye pearson MD [facility]-63816 Level 3 Est. Patient 20:21:43 SKEINER Kayla jameson MD [facility]-79671 Level 3 Est. Patient 13:27:28 SKEINER Kayla jameson MD [facility]-71542 Level 4 Est. Patient 15:57:17 SKEINER Tesfaye pearson MD [facility] CPT-67026 Level 3 New Patient 13:25:47 CDT Tesfaye kidd MD [facility] CPT-65138 Level 3 New Patient 17:22:21 CDT Kayla angel MD [facility] Procedures Code Procedure Name Date Entry Date Standard Desc ription CPT-G0438 Initial Annual Wellness Exam 11:23:17 CD T CPT-J2930 Solu Medrol 125 mg (Methyl Prednisolone Sodium Succinate) 17:29:12 SKEINER CPT-32980 Abx/Therapy Injection 17:29:11 SKEINER CPT-J2930 Solu Medrol 125 mg (Methyl Prednisolone Sodium Succinate) 12:34:38 SKEINER CPT-J3420 Vitamin B12 1000mcg (Cyanocobalamin) 09:12:55 CDT CPT-J3420 Vitamin B12 1000mcg (Cyanocobalamin) 16:28:06 SKEINER CPT-89402 Venipuncture Draw Fee 08:39:53 CDT CPT-J3420 Vitamin B12 1000mcg (Cyanocobalamin) 08:46:22 CDT CPT-53767 Abx/Therapy Injection 08:46:22 CDT CPT-J3420 Vitamin B12 1000mcg (Cyanocobalamin) 08:41:26 CDT CPT-39622 Abx/Therapy Injection 08:41:26 CDT CPT-J3420 Vitamin B12 1000mcg (Cyanocobalamin) 08:57:15 CDT CPT-11819 Abx/Therapy Injection 08:57:15 CDT CPT-J3420 Vitamin B12 1000mcg (Cyanocobalamin) 10:59:03 CDT CPT-76947 Abx/Therapy Injection 10:59:03 CDT CPT-J3420 Vitamin B12 1000mcg (Cyanocobalamin) 15:05:39 CDT CPT-71241 Abx/Therapy Injection 15:05:39 CDT CPT-J3420 Vitamin B12 1000mcg (Cyanocobalamin) 13:50:45 CDT CPT-J3420 Vitamin B12 1000mcg (Cyanocobalamin) 08:48:55 CDT CPT-47474 Abx/Therapy Injection 08:48:55 CDT CPT-J3420 Vitamin B12 1000mcg (Cyanocobalamin) 09:14:54 CDT CPT-95520 Abx/Therapy Injection 09:14:54 CDT CPT-J3420 Vitamin B12 1000mcg (Cyanocobalamin) 09:06:06 CDT CPT-56836 Abx/Therapy Injection 09:06:06 CDT CPT-J3420 Vitamin B12 1000mcg (Cyanocobalamin) 09:49:14 CDT CPT-24600 Abx/Therapy Injection 09:49:14 CDT CPT-J3420 Vitamin B12 1000mcg (Cyanocobalamin) 09:10:30 SKEINER CPT-22365 Abx/Therapy Injection 09:10:30 SKEINER CPT-J3420 Vitamin B12 1000mcg (Cyanocobalamin) 09:11:07 SKEINER CPT-85591 Abx/Therapy Injection 09:11:07 SKEINER CPT-J3420 Vitamin B12 1000mcg (Cyanocobalamin) 09:57:03 SKEINER CPT-47682 Abx/Therapy Injection 09:57:03 SKEINER CPT-J3420 Vitamin B12 1000mcg (Cyanocobalamin) 09:23:21 SKEINER CPT-55835 Abx/Therapy Injection 09:23:21 SKEINER CPT-59843 Urine Dip (Floor Use Only) 20:21:44 SKEINER 201 02/12/11 CPT-41301 UA Dip Auto (Floor Use Only) 10:04:39 SKEINER 2 CPT-44886 Urine Dip (Floor Use Only) 13:27:28 SKEINER 201 02/12/01 CPT-69315 Bladder Scan 13:27:28 SKEINER CPT-47601 Abd single AP View 14:30:51 SKEINER CPT-OV Office Visit 10:15:43 CDT CPT-12184 Urine Dip (Floor Use Only) 17:22:21 CDT 201 02/09/02 CPT-07040 Bladder Scan 17:22:21 CDT
--- OUTSIDE RECORDS SUMMARY | 2020-05-05 12:34 | XMS REPORT | Clinical Summary ---
Author Author Jeri Hanley Organization [employer] Address Unknown Phone Unavailable Allergies, Adverse Reactions, [...] for cholesterol 04/18 OMEGA- 3 FATTY ACIDS 26834231268 Active Rosa Jaffe LPN Acti ve RED YEAST RICE 600 MG CAPS 1 pill by mouth daily RED YEAST RICE EXTRACT 79639056106 Active Rosa Jaffe LPN Activ e VENLAFAXINE HCL 37.5 MG TABS 1/4 tab po titrating up to full dose 2 VENLAFAXINE HCL 89302000135 Active Chelsea Braba APRN Activ e DIFLUCAN 100 MG TAB 1 tablet by mouth daily FLU CONAZOLE 46332138844 No Longer Active Tesfaye Sherman MD Active BACTRIM DS 800-160 MG TAB 1 tab by mouth twice daily 2 TRIMETHOPRIM-SULFAMETHOXAZOLE 38040840366 No Longer Active Tesfaye Sherman MD Active BACTRIM DS 800-160 MG TAB 1 tab by mouth twice daily 2 TRIMETHOPRIM-SULFAMETHOXAZOLE 82246742998 No Longer Active Tesfaye Sherman MD Active DIFLUCAN 150 MG TAB 1 tablet by mouth daily FLU CONAZOLE 88391268164 No Longer Active Tesfaye Sherman MD Active BACTRIM DS 800-160 MG TAB 1 tab by mouth twice daily 2 TRIMETHOPRIM-SULFAMETHOXAZOLE 57197577264 No Longer Active Tesfaye Sherman MD Active ROPINIROLE HCL 0.25 MG ORAL TABS 1 TAB PO Q HS ROPINIROLE HCL 92290132216 Active Tesfaye Sherman MD Active CYMBALTA 30 MG CPEP 1 cap by mouth daily with 60mg DULOXETINE HCL 53403503064 Active Tesfaye Sherman MD Active CEFTIN 250 MG TAB 1 tablet twice daily x 7 days 11/19 CEFUROXIME AXETIL 65676032527 No Longer Active Tesfaye Sherman MD Acti ve DIFLUCAN 100 MG TABS 1 tablet by mouth every other day for 2 dos es FLUCONAZOLE 52973497969 No Longer Active Tesfaye Sherman MD Active DIFLUCAN 100 MG TAB 1 tablet by mouth daily X 3 DAYS 2 FLUCONAZOLE 02862798174 No Longer Active Rj Moss DO Active MIRTAZAPINE 15 MG ORAL TABS 1/2 tab by mouth at bedtime. MIRTAZAPINE 57719517390 No Longer Active Tesfaye Sherman MD Acti ve BACTRIM DS 800-160 MG TAB 1 tab by mouth twice daily 2 TRIMETHOPRIM-SULFAMETHOXAZOLE 89377146047 No Longer Active Tesfaye Sherman MD Active PRAMIPEXOLE DIHYDROCHLORIDE 0.125 MG ORAL TABS take 1 tablet po qhs for restless leg syndrome. PRAMIPEXOLE DIHYDROCHLORIDE 85027923547 No Longer Active Tesfaye Sherman MD Active MAGNESIUM 400 MG ORAL TABS 1 tab po daily MAGNESI UM 09365062850 Active Chelsea Barba APRN Active SUDAFED 24 HOUR 240 MG ORAL [id number] 1 tab po daily PSEUDOEPHEDRINE HCL 59071861424 Active Chelsea Barba APRN A ctive CETIRIZINE HCL 5 MG TABS Take 1 tablet by mouth daily CETIRIZINE HCL 52079286322 No Longer Active Chelsea Barba APRN Acti ve TRIMETHOPRIM 100 MG TABS 1/2 qd TRIMETHOPRIM 69911866392 No Longer Active Chelsea Barba APRN Active BACTRIM DS 800-160 MG TAB 1 tab by mouth twice daily 2 TRIMETHOPRIM-SULFAMETHOXAZOLE 00243301217 No Longer Active Tesfaye Sherman MD Active BACTRIM DS 800-160 MG TAB 1 tab by mouth twice daily X 10 DAYS 2 TRIMETHOPRIM-SULFAMETHOXAZOLE 73505418653 No Longer Active Umer Sherman MD Active AMOXICILLIN 500 MG CAPS 1 cap by mouth three times a day AMOXICILLIN 29422909670 No Longer Active Adriana Arnulfo Active MECLIZINE HCL 25 MG TAB one tab po qday prn dizziness MECLIZINE HCL 31737425908 Active Tesfaye Sherman MD Active B-12 1000 MCG ORAL LOZG 1 tab po daily CYANOCOBAL STANTON 13490417159 Active Tesfaye Sherman MD Active VITAMIN D3 2000 UNIT TABS 1 daily, for vitamin D deficiency 2014 CHOLECALCIFEROL 34471271720 No Longer Active Tesfaye Sherman MD Active TIZANIDINE HCL 2 MG TABS take 1-2 tablet by mouth ev day at bedtime at 9pm PRN TIZANIDINE HCL 12244889979 Active Tesfaye Owusu Active ZITHROMAX 250 MG TAB 2 po today, then 1 po q days 2-5 AZITHROMYCIN 53100362338 No Longer Active Tesfaye Sherman MD Acti ve BACTRIM DS 800-160 MG TAB 1 tab by mouth twice daily 2 TRIMETHOPRIM-SULFAMETHOXAZOLE 12325236021 No Longer Active Tesfaye Sherman MD Active PRELIEF 340 (65-50) MG (CA-P) ORAL TABS CALCIUM GLYCEROPHOSPHATE 75573347080 Active Tesfaye Sherman MD Active [facility] NIACIN FLUSH FREE 400-100 MG CAPS 1 daily NIACIN-INOSITOL 74816240642 Active Kayla Cooper MD Active DIFLUCAN 150 MG TABS 1 qd FLUCONAZOLE 07045 918570 No Longer Active Kayla Cooper MD Active FLUTICASONE PROPIONATE 50 MCG/ACT SUSP 1 spray each nostril twice daily FLUTICASONE PROPIONATE 40859016771 Active Tesfaye armenta MD Active LOVASTATIN 20 MG TABS Take 1 tablet by mouth daily LOVASTATIN 75689599187 No Longer Active Tesfaye Sherman MD Active MELOXICAM 7.5 MG TABS 1 tablet by mouth daily M ELOXICAM 59796591910 No Longer Active Tesfaye Sherman MD Active GABAPENTIN 300 MG CAPS Take two tablets by mouth every evening GABAPENTIN 19742547667 No Longer Active Edith Burch MD Active OXYCODONE-ACETAMINOPHEN 5-325 MG TABS Take one tablet by mouth every 6 hours as needed. Max 12 tabs/day as needed OXYCODONE-ACETAMINOP HEN 19893385117 Active Tesfaye Sherman MD Active CYMBALTA 60 MG CPEP Take 1 tablet by mouth daily D ULOXETINE HCL 13275015714 Active Kayla Cooper MD Active CLONAZEPAM 0.5 MG TABS Take one tablet in the morning and 1.5 table t at 7pm CLONAZEPAM 36296122302 Active Kayla Cooper MD Active BACLOFEN 10 MG TABS Take one tablet by mouth three times a day BACLOFEN 60733257830 Active Kayla Cooper MD Active GABAPENTIN 300 MG CAPS Take two tablets by mouth every evening GABAPENTIN 300 MG CAPS 264295 GABAPENTIN Inactive MELOXICAM 7.5 MG TABS 1 tablet by mouth daily MELOXICAM 7.5 MG TABS 507059 MELOXICAM Inactive LOVASTATIN 20 MG TABS Take 1 tablet by mouth daily 201 02/12/20 LOVASTATIN 20 MG TABS 335142 LOVASTATIN Inactive DIFLUCAN 150 MG TABS 1 qd DIFLUCAN 150 MG T ABS 516888 FLUCONAZOLE Inactive VITAMIN D3 2000 UNIT TABS 1 daily, for vitamin D deficiency 2014 VITAMIN D3 2000 UNIT TABS CHOLECALCIFEROL Inacti ve AMOXICILLIN 500 MG CAPS 1 cap by mouth three times a day AMOXICILLIN 500 MG CAPS 499564 AMOXICILLIN Inactive BACTRIM DS 800-160 MG TAB 1 tab by mouth twice daily X 10 DAYS 2 BACTRIM DS 800-160 MG TAB 19830105 TRIMETHOPRIM-SULFAMETH OXAZOLE Inactive TRIMETHOPRIM 100 MG TABS 1/2 qd TRIMETHOPRI M 100 MG TABS 19830102 TRIMETHOPRIM Inactive CETIRIZINE HCL 5 MG TABS Take 1 tablet by mouth daily CETIRIZINE HCL 5 MG TABS 2865414 CETIRIZINE HCL Inactive PRAMIPEXOLE DIHYDROCHLORIDE 0.125 MG ORAL TABS take 1 tablet po qhs for restless leg syndrome. PRAMIPEXOLE DIHYDROC HLORIDE 0.125 MG ORAL TABS 875729 PRAMIPEXOLE DIHYDROCHLORIDE Inactive MIRTAZAPINE 15 MG ORAL TABS 1/2 tab by mouth at bedtime. MIRTAZAPINE 15 MG ORAL TABS 991693 MIRTAZAPINE Inactive DIFLUCAN 100 MG TAB 1 tablet by mouth daily X 3 DAYS 2 DIFLUCAN 100 MG TAB 726581 FLUCONAZOLE Inactive DIFLUCAN 100 MG TABS 1 tablet by mouth every other day for 2 dos es DIFLUCAN 100 MG TABS 154721 FLUCONAZOLE Inactive CEFTIN 250 MG TAB 1 tablet twice daily x 7 days 11/19 CEFTIN 250 MG TAB 233909 CEFUROXIME AXETIL Inactive BACTRIM DS 800-160 MG TAB 1 tab by mouth twice daily 2 BACTRIM DS 800-160 MG TAB 19830105 TRIMETHOPRIM-SULFAMETHOXAZOLE Inac tive ZITHROMAX 250 MG TAB 2 po today, then 1 po q days 2-5 ZITHROMAX 250 MG TAB 6585174 AZITHROMYCIN Inactive BACTRIM DS 800-160 MG TAB [...] ... - Chemistry sodium, serum 144 mmol/L 078-888 7569/06/14 carbon dioxide, venous blood 29.4 mmol/L 21.0-32 .0 potassium, serum 4.4 mmol/L 3.5-5.2 chloride, serum 108 mmol/L 98-107 blood glucose 100 mg/dL 65-110 urea nitrogen, blood 9 mg/dL 7-18 creatinine, serum 0.67 mg/dL 0.55-1.30 alanine aminotransferase (SGPT), serum 24 U/L 12-78 aspartate aminotransferase (SGOT), serum 15 U/L 15-37 calcium, serum 9.3 mg/dL 8.5-10.1 bilirubin, serum, total 0.50 mg/dL 0.00-1.00 cholesterol, serum 268 mg/dL 793-867 5962/06/14 triglyceride, serum, fasting 126 mg/dL 30-200 HDL [...] mg/dL Encounters Code Encounter Date Provider Facility CPT-27367 Level 4 Est. Patient 09:14:56 CDT Tesfaye pearson MD [facility] CPT-84949 Level 4 Est. Patient 18:40:25 LICENSE REGISTRATION EXAMINER Tesfaye pearson MD [facility] CPT-18451 Level 4 Est. Patient 18:13:07 LICENSE REGISTRATION EXAMINER Tesfaye pearson MD [facility] CPT-74540 Level 3 Est. Patient 10:46:32 CDT Rj cotto DO [facility] CPT-80784 Level 4 Est. Patient 20:19:25 CDT Tesfaye pearson MD [facility] CPT-44733 Level 3 Est. Patient 09:07:31 CDT Tesfaye pearson MD [facility] CPT-43134 Level 4 Est. Patient 13:12:56 CDT Tesfaye pearson MD [facility] CPT-02909 Level 4 Est. Patient 21:24:55 LICENSE REGISTRATION EXAMINER Tesfaye pearson MD [facility] CPT-43230 Level 3 Est. Patient 13:45:04 LICENSE REGISTRATION EXAMINER Tesfaye pearson MD [facility] CPT-41611 Level 4 Est. Patient 13:50:45 CDT Tesfaye pearson MD [facility] CPT-37658 Level 3 Est. Patient 10:16:10 CDT Tesfaye pearson MD [facility] CPT-03888 Level 3 Est. Patient 16:36:07 LICENSE REGISTRATION EXAMINER Kayla jameson MD [facility] CPT-44970 Level 4 Est. Patient 16:00:14 LICENSE REGISTRATION EXAMINER Tesfaye pearson MD [facility] CPT-03170 Level 4 Est. Patient 11:02:24 LICENSE REGISTRATION EXAMINER Tesfaye pearson MD [facility] CPT-64893 Level 3 Est. Patient 20:21:43 LICENSE REGISTRATION EXAMINER Kayla jameson MD [facility] CPT-93820 Level 3 Est. Patient 13:27:28 LICENSE REGISTRATION EXAMINER Kayla jameson MD [facility] CPT-82791 Level 4 Est. Patient 15:57:17 LICENSE REGISTRATION EXAMINER Tesfaye pearson MD [facility] CPT-20295 Level 3 New Patient 13:25:47 CDT Tesfaye kidd MD [facility] CPT-18381 Level 3 New Patient 17:22:21 CDT Kayla angel MD [facility] Procedures Code Procedure Name Date Entry Date Standard Desc ription CPT-26526 Foot, right, comp min 3V - XRAY USE ONLY 10:38:34 CDT CPT-G0439 MC Subsequent Annual Wellness Exam 13:55:04 CDT CPT-G0438 Initial Annual Wellness Exam 11:23:17 CD T CPT-J2930 Solu Medrol 125 mg (Methyl Prednisolone Sodium Succinate) 17:29:12 LICENSE REGISTRATION EXAMINER CPT-20378 Abx/Therapy Injection 17:29:11 LICENSE REGISTRATION EXAMINER CPT-J2930 Solu Medrol 125 mg (Methyl Prednisolone Sodium Succinate) 12:34:38 LICENSE REGISTRATION EXAMINER CPT-J3420 Vitamin B12 1000mcg (Cyanocobalamin) 09:12:55 CDT CPT-J3420 Vitamin B12 1000mcg (Cyanocobalamin) 16:28:06 LICENSE REGISTRATION EXAMINER CPT-63277 Venipuncture Draw Fee 08:39:53 CDT CPT-J3420 Vitamin B12 1000mcg (Cyanocobalamin) 08:46:22 CDT CPT-55694 Abx/Therapy Injection 08:46:22 CDT CPT-J3420 Vitamin B12 1000mcg (Cyanocobalamin) 08:41:26 CDT CPT-08082 Abx/Therapy Injection 08:41:26 CDT CPT-J3420 Vitamin B12 1000mcg (Cyanocobalamin) 08:57:15 CDT CPT-49395 Abx/Therapy Injection 08:57:15 CDT CPT-J3420 Vitamin B12 1000mcg (Cyanocobalamin) 10:59:03 CDT CPT-08905 Abx/Therapy Injection 10:59:03 CDT CPT-J3420 Vitamin B12 1000mcg (Cyanocobalamin) 15:05:39 CDT CPT-66620 Abx/Therapy Injection 15:05:39 CDT CPT-J3420 Vitamin B12 1000mcg (Cyanocobalamin) 13:50:45 CDT CPT-J3420 Vitamin B12 1000mcg (Cyanocobalamin) 08:48:55 CDT CPT-46533 Abx/Therapy Injection 08:48:55 CDT CPT-J3420 Vitamin B12 1000mcg (Cyanocobalamin) 09:14:54 CDT CPT-83140 Abx/Therapy Injection 09:14:54 CDT CPT-J3420 Vitamin B12 1000mcg (Cyanocobalamin) 09:06:06 CDT CPT-92329 Abx/Therapy Injection 09:06:06 CDT CPT-J3420 Vitamin B12 1000mcg (Cyanocobalamin) 09:49:14 CDT CPT-76336 Abx/Therapy Injection 09:49:14 CDT CPT-J3420 Vitamin B12 1000mcg (Cyanocobalamin) 09:10:30 LICENSE REGISTRATION EXAMINER CPT-43080 Abx/Therapy Injection 09:10:30 LICENSE REGISTRATION EXAMINER CPT-J3420 Vitamin B12 1000mcg (Cyanocobalamin) 09:11:07 LICENSE REGISTRATION EXAMINER CPT-96944 Abx/Therapy Injection 09:11:07 LICENSE REGISTRATION EXAMINER CPT-J3420 Vitamin B12 1000mcg (Cyanocobalamin) 09:57:03 LICENSE REGISTRATION EXAMINER CPT-75981 Abx/Therapy Injection 09:57:03 LICENSE REGISTRATION EXAMINER CPT-J3420 Vitamin B12 1000mcg (Cyanocobalamin) 09:23:21 LICENSE REGISTRATION EXAMINER CPT-72163 Abx/Therapy Injection 09:23:21 LICENSE REGISTRATION EXAMINER CPT-85341 Urine Dip (Floor Use Only) 20:21:44 LICENSE REGISTRATION EXAMINER 201 02/12/11 CPT-41658 UA Dip Auto (Floor Use Only) 10:04:39 LICENSE REGISTRATION EXAMINER 2 CPT-46340 Urine Dip (Floor Use Only) 13:27:28 LICENSE REGISTRATION EXAMINER 201 02/12/01 CPT-92855 Bladder Scan 13:27:28 LICENSE REGISTRATION EXAMINER CPT-60907 Abd single AP View 14:30:51 LICENSE REGISTRATION EXAMINER CPT-OV Office Visit 10:15:43 CDT CPT-54855 Urine Dip (Floor Use Only) 17:22:21 CDT 201 02/09/02 CPT-80517 Bladder Scan 17:22:21 CDT
--- OUTSIDE RECORDS SUMMARY | 2020-05-05 12:35 | XMS REPORT | Clinical Summary ---
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 Use sparingly OXYCODONE-ACETAMINOPHEN 08391691602 Active Tesfaye Sherman MD Active PREDNISONE 20 MG ORAL TABLET 1 tab twice daily for 3 d ay, then one daily for three days PREDNISONE 52651846130 No Longer Active Tesfaye Sherman MD Active PROAIR HFA 108 (90 BASE) MCG/ACT INHALATION AEROSOL SO LUTION 1 puff every 6 hours as needed ALBUTEROL SULFATE 56662026332 Active Arnold nda Raida Active MECLIZINE HCL 25 MG ORAL TABLET one 4 times a day as needed for dizziness MECLIZINE HCL 00089008902 Active Laurence Raduyen Active DIFLUCAN 100 MG ORAL TABLET 1 tablet by mouth daily FLUCONAZOLE 50665368655 Active Laurenceyohana Dominguez Active AMOXICILLIN 500 MG ORAL CAPSULE 1 cap by mouth three times a day AMOXICILLIN 84459620479 No Longer Active Laurenceyohana Dominguez Acti ve VENLAFAXINE HCL 75 MG ORAL TABLET 1 am 1/2 at noon VENLAFAXINE HCL 81697266709 Active Tesfaye Sherman MD Active DIFLUCAN 100 MG ORAL TABLET 1 tablet by mouth daily 20 19/08/26 FLUCONAZOLE 27207819724 No Longer Active Tesfaye Sherman MD Acti ve BACTRIM DS 800-160 MG ORAL TABLET 1 tab by mouth twice daily 201 05/10/28 TRIMETHOPRIM-SULFAMETHOXAZOLE 56777111977 No Longer Active A mirnakatarina Dominguez Active FOSAMAX 70 MG ORAL TABLET 1 po qweek. Take 30min prio r to first food/drink. Avoid lying down x 1 hour. ALENDRONATE SODIUM 87025452 144 No Longer Active Laurenceyohana Dominguez Active REPHRESH PRO-B ORAL CAPSULE 1 tablet daily LACT OBACILLUS 44152750930 Active Edith Burch MD Active CYMBALTA 60 MG ORAL CAPSULE DELAYED RELEASE PARTICLES Take 1 tablet by mouth daily DULOXETINE HCL 48692914575 No Longer Active Edith Burch MD Active CYMBALTA 30 MG ORAL CAPSULE DELAYED RELEASE PARTICLES 1 cap by mouth daily with 60mg DULOXETINE HCL 30538884448 No Longer Active Jordan Burch MD Active FISH OIL 1000 MG ORAL CAPSULE DELAYED RELEASE 1 pill b y mouth daily for cholesterol OMEGA-3 FATTY ACIDS 90635173855 Active Cee Jaffe LPN Active RED YEAST RICE 600 MG ORAL CAPSULE 1 pill by mouth daily RED YEAST RICE EXTRACT 82438638835 Active KENDELL Moreno e DIFLUCAN 100 MG ORAL TABLET 1 tablet by mouth daily 20 19/03/05 FLUCONAZOLE 54304405612 No Longer Active Tesfaye Sherman MD Acti ve BACTRIM DS 800-160 MG ORAL TABLET 1 tab by mouth twice daily 201 05/06/28 TRIMETHOPRIM-SULFAMETHOXAZOLE 86969232557 No Longer Active Umer Sherman MD Active BACTRIM DS 800-160 MG ORAL TABLET 1 tab by mouth twice daily 201 05/04/15 TRIMETHOPRIM-SULFAMETHOXAZOLE 35582698914 No Longer Active Umer Sherman MD Active DIFLUCAN 150 MG ORAL TABLET 1 tablet by mouth daily 20 18/09/20 FLUCONAZOLE 96991390465 No Longer Active Tesfaye Sherman MD Acti ve BACTRIM DS 800-160 MG ORAL TABLET 1 tab by mouth twice daily 201 04/13/17 TRIMETHOPRIM-SULFAMETHOXAZOLE 18227549249 No Longer Active Umer Sherman MD Active ROPINIROLE HCL 0.25 MG ORAL TABLET 1 TAB PO Q HS ROPINIROLE HCL 82693785208 Active Tesfaye Sherman MD Active CEFTIN 250 MG ORAL TABLET 1 tablet twice daily x 7 days CEFUROXIME AXETIL 70739027204 No Longer Active Tesfaye Sherman MD Active DIFLUCAN 100 MG ORAL TABLET 1 tablet by mouth every other da y for 2 doses FLUCONAZOLE 10351569345 No Longer Active Tesfaye barron MD Active DIFLUCAN 100 MG ORAL TABLET 1 tablet by mouth daily X 3 DAYS 201 04/09/01 FLUCONAZOLE 68434375830 No Longer Active Rj Lyons tive MIRTAZAPINE 15 MG ORAL TABLET 1/2 tab by mouth at bedtime. 03/13 MIRTAZAPINE 47082167405 No Longer Active Tesfaye Sherman MD Active BACTRIM DS 800-160 MG ORAL TABLET 1 tab by mouth twice daily 201 04/09/01 TRIMETHOPRIM-SULFAMETHOXAZOLE 97084428657 No Longer Active Umer Sherman MD Active PRAMIPEXOLE DIHYDROCHLORIDE 0.125 MG ORAL TABLET take 1 tablet po qhs for restless leg syndrome. PRAMIPEXOLE DIHYDROCHLORI DE 14142943014 No Longer Active Tesfaye Sherman MD Active MAGNESIUM 400 MG ORAL TABLET 1 tab po daily MAGNE SIUM 30614558708 Active Chelsea Cardenas APRN Active SUDAFED 24 HOUR 240 MG ORAL TABLET EXTENDED RELEASE 24 HOUR 1 tab po daily PSEUDOEPHEDRINE HCL 36795506720 Active Chelsea Cardenas APRN Active CETIRIZINE HCL 5 MG ORAL TABLET Take 1 tablet by mouth daily CETIRIZINE HCL 99510358916 No Longer Active Chelsea Cardenas APRN Activ e TRIMETHOPRIM 100 MG ORAL TABLET 1/2 qd TRIM ETHOPRIM 81173017203 No Longer Active Chelsea Cardenas APRN Active BACTRIM DS 800-160 MG ORAL TABLET 1 tab by mouth twice daily 201 04/04/11 TRIMETHOPRIM-SULFAMETHOXAZOLE 38050060631 No Longer Active Umer Sherman MD Active BACTRIM DS 800-160 MG ORAL TABLET 1 tab by mouth twice daily X 10 DAYS TRIMETHOPRIM-SULFAMETHOXAZOLE 30873319378 No Longer Active Tesfaye Sherman MD Active AMOXICILLIN 500 MG ORAL CAPSULE 1 cap by mouth three times a day AMOXICILLIN 49586956623 No Longer Active Adriana Arredondo Active MECLIZINE HCL 25 MG ORAL TABLET one tab po qday prn dizziness 09/08 MECLIZINE HCL 77454986206 Active Tesfaye Sherman MD Active B-12 1000 MCG ORAL LOZENGE 1 tab po daily CYANO COBALAMIN 09041570325 Active Tesfaye Sherman MD Active VITAMIN D3 2000 UNIT ORAL TABLET 1 daily, for vitamin D deficien cy CHOLECALCIFEROL 22283996346 No Longer Active Tesfaye Sherman MD Active TIZANIDINE HCL 2 MG ORAL TABLET take 1-2 tablet by mo uth every day at bedtime at 9pm PRN TIZANIDINE HCL 06019734809 Active Tesfaye hewitt MD Active ZITHROMAX 250 MG ORAL TABLET 2 po today, then 1 po q days 2-5 20 15/02/10 AZITHROMYCIN 42488067889 No Longer Active Tesfaye Sherman MD Active BACTRIM DS 800-160 MG ORAL TABLET 1 tab by mouth twice daily 201 03/03/23 TRIMETHOPRIM-SULFAMETHOXAZOLE 39666030695 No Longer Active Umer Sherman MD Active PRELIEF 340 (65-50) MG (CA-P) ORAL TABLET CALCIUM GLYCEROPHOSPHATE 70934177514 Active Tesfaye Sherman MD Acti ve [facility] NIACIN FLUSH FREE 400-100 MG ORAL CAPSULE 1 daily NIACIN-INOSITOL 28860053196 Active Kayla Cooper MD Activ e DIFLUCAN 150 MG ORAL TABLET 1 qd FLUCONAZOL E 10807837457 No Longer Active Kayla Cooper MD Active FLUTICASONE PROPIONATE 50 MCG/ACT NASAL SUSPENSION 1 spray each nostril twice daily FLUTICASONE PROPIONATE 24235977987 Active Umer Sherman MD Active LOVASTATIN 20 MG ORAL TABLET Take 1 tablet by mouth daily LOVASTATIN 10794530132 No Longer Active Tesfaye Sherman MD Acti ve MELOXICAM 7.5 MG ORAL TABLET 1 tablet by mouth daily 2 MELOXICAM 14000412461 No Longer Active Tesfaye Sherman MD Acti ve GABAPENTIN 300 MG ORAL CAPSULE Take two tablets by mouth every e vening GABAPENTIN 78229149198 No Longer Active Edith Burch MD A ctive CLONAZEPAM 0.5 MG ORAL TABLET Take one tablet in the m orning and 1.5 tablet at 7pm CLONAZEPAM 92385407551 Active Kayla Cooper MD Active BACLOFEN 10 MG ORAL TABLET Take one tablet by mouth three times a d ay BACLOFEN 16685611088 Active Kayla Cooper MD Active GABAPENTIN 300 MG ORAL CAPSULE Take two tablets by mouth every e vening GABAPENTIN 300 MG ORAL CAPSULE 513177 GABAPENTIN I nactive MELOXICAM 7.5 MG ORAL TABLET 1 tablet by mouth daily 2 MELOXICAM 7.5 MG ORAL TABLET 595524 MELOXICAM Inactive LOVASTATIN 20 MG ORAL TABLET Take 1 tablet by mouth daily LOVASTATIN 20 MG ORAL TABLET 576420 LOVASTATIN Inactive DIFLUCAN 150 MG ORAL TABLET 1 qd DIFLUCAN 150 MG ORAL TABLET 170407 FLUCONAZOLE Inactive VITAMIN D3 2000 UNIT ORAL TABLET 1 daily, for vitamin D deficien cy VITAMIN D3 2000 UNIT ORAL TABLET CHOLECALCIFEROL Inactive AMOXICILLIN 500 MG ORAL CAPSULE 1 cap by mouth three times a day AMOXICILLIN 500 MG ORAL CAPSULE 436875 AMOXICILLIN Inactive BACTRIM DS 800-160 MG ORAL TABLET 1 tab by mouth twice daily X 10 DAYS BACTRIM DS 800-160 MG ORAL TABLET 737063 TRIMETHOPRIM-SULFAMETHOXAZOLE Inactive TRIMETHOPRIM 100 MG ORAL TABLET 1/2 qd 7 TRIMETHOPRIM 100 MG ORAL TABLET 096829 TRIMETHOPRIM Inactive CETIRIZINE HCL 5 MG ORAL TABLET Take 1 tablet by mouth daily CETIRIZINE HCL 5 MG ORAL TABLET 7563662 CETIRIZINE HCL Inactive PRAMIPEXOLE DIHYDROCHLORIDE 0.125 MG ORAL TABLET take 1 tablet po qhs for restless leg syndrome. PRAMIPEXOLE DIHYD ROCHLORIDE 0.125 MG ORAL TABLET 715423 PRAMIPEXOLE DIHYDROCHLORIDE Inactive MIRTAZAPINE 15 MG ORAL TABLET 1/2 tab by mouth at bedtime. 03/13 MIRTAZAPINE 15 MG ORAL TABLET 563038 MIRTAZAPINE In active DIFLUCAN 100 MG ORAL TABLET 1 tablet by mouth daily X 3 DAYS 201 04/09/01 DIFLUCAN 100 MG ORAL TABLET 453002 FLUCONAZOLE Inac tive DIFLUCAN 100 MG ORAL TABLET 1 tablet by mouth every other da y for 2 doses DIFLUCAN 100 MG ORAL TABLET 518790 FLUCONAZOLE Inactive CEFTIN 250 MG ORAL TABLET 1 tablet twice daily x 7 days CEFTIN 250 MG ORAL TABLET 551181 CEFUROXIME AXETIL Inactive CYMBALTA 30 MG ORAL CAPSULE DELAYED RELEASE PARTICLES 1 cap by mouth daily with 60mg CYMBALTA 30 MG ORAL CAPSULE DELAYED RELEASE PARTICLES 718496 DULOXETINE HCL Inactive CYMBALTA 60 MG ORAL CAPSULE DELAYED RELEASE PARTICLES Take 1 tablet by mouth daily CYMBALTA 60 MG ORAL CAPSULE DELAYED RELEA SE PARTICLES 165748 DULOXETINE HCL Inactive FOSAMAX 70 MG ORAL TABLET 1 po qweek. Take 30min prio r to first food/drink. Avoid lying down x 1 hour. FOSAMAX 70 MG ORAL TA BLET 664443 ALENDRONATE SODIUM Inactive DIFLUCAN 100 MG ORAL TABLET 1 tablet by mouth daily 20 19/08/26 DIFLUCAN 100 MG ORAL TABLET 199872 FLUCONAZOLE Inactive PREDNISONE 20 MG ORAL TABLET 1 tab twice daily for 3 d ay, then one daily for three days PREDNISONE 20 MG ORAL TABLET 542713 PREDNIS ONE Inactive BACTRIM DS 800-160 MG ORAL TABLET 1 tab by mouth twice daily 201 03/03/23 BACTRIM DS 800-160 MG ORAL TABLET 953308 TRIMETHOPRIM-SULFAMETHOXAZOLE Inactive ZITHROMAX 250 MG ORAL TABLET 2 po today, then 1 po q days 2-5 20 15/02/10 ZITHROMAX 250 MG ORAL TABLET 882420 AZITHROMYCIN Mayela ctive BACTRIM DS 800-160 MG [...] daily 19/03/05 DIFLUCAN 100 MG ORAL TABLET 655911 FLUCONAZOLE Inactive BACTRIM DS 800-160 MG ORAL TABLET 1 tab by mouth twice daily 201 05/10/28 BACTRIM DS 800-160 MG ORAL TABLET 209776 TRIMETHOPRIM-SULFAMETHOXAZOLE Inactive AMOXICILLIN 500 MG ORAL CAPSULE 1 cap by mouth three times a day AMOXICILLIN 500 MG ORAL CAPSULE 143468 AMOXICILLIN Inactive Advance Directives Directive Description Start Date PERMISSION TO SHARE DISCUSSED WITH PATIENT -- NO DECISION MADE DURABLE POWER OF FIELD SALES REPRESENTATIVE FOR HEALTHCARE DISCUSED WITH PATIENT -- [...] Negative Lab Report: CBC W/DIFF - Hematology leukocyte [...] ... - Chemistry sodium, serum 144 mmol/L 543-789 5631/06/14 carbon dioxide, venous blood 29.4 mmol/L 21.0-32 .0 potassium, serum 4.4 mmol/L 3.5-5.2 chloride, serum 108 mmol/L 98-107 blood glucose 100 mg/dL 65-110 urea nitrogen, blood 9 mg/dL 7-18 creatinine, serum 0.67 mg/dL 0.55-1.30 alanine aminotransferase (SGPT), serum 24 U/L 12-78 aspartate aminotransferase (SGOT), serum 15 U/L 15-37 calcium, serum 9.3 mg/dL 8.5-10.1 bilirubin, serum, total 0.50 mg/dL 0.00-1.00 cholesterol, serum 268 mg/dL 869-929 3899/06/14 triglyceride, serum, fasting 126 mg/dL 30-200 HDL cholesterol, serum 51 mg/dL 32-96 LDL cholesterol, serum 192 mg/dL 0-130 TSH 0.83 m[iU]/mL 0.36-3.74 thyroxine, serum, free 1.03 ng/dL 0.76-1.46 uric acid, serum 3.2 mg/dL 2.6-7.2 Lab Report: Comp. Metabolic Panel, [facility] - Chemistry sodium, serum 141 mmol/L 140-964 1866/01/26 carbon dioxide, venous blood 29.5 mmol/L 21.0-32 [...] mg/dL Encounters Code Encounter Date Provider Facility CPT-76630 Level 4 Est. Patient 22:18:12 CDT Tesfaye pearson MD [facility] CPT-02264 Level 4 Est. Patient 14:44:33 LINK ASSEMBLER Tesfaye pearson MD [facility] CPT-23917 Level 4 Est. Patient 13:55:29 LINK ASSEMBLER Tesfaye pearson MD [facility] CPT-99846 Level 4 Est. Patient 17:07:34 LINK ASSEMBLER Tesfaye pearson MD [facility] CPT-28003 Level 4 Est. Patient 13:56:54 CDT Tesfaye pearson MD [facility] CPT-88298 Level 4 Est. Patient 13:24:25 CDT Chelsea sanz APRN [facility] CPT-68499 Level 4 Est. Patient 09:14:56 CDT Tesfaye pearson MD [facility]-17833 Level 4 Est. Patient 18:40:25 LINK ASSEMBLER Tesfaye pearson MD [facility] CPT-75267 Level 4 Est. Patient 18:13:07 LINK ASSEMBLER Tesfaye pearson MD [facility]-67942 Level 3 Est. Patient 10:46:32 CDT Rj cotto DO [facility] CPT-43568 Level 4 Est. Patient 20:19:25 CDT Tesfaye pearson MD [facility] CPT-54330 Level 3 Est. Patient 09:07:31 CDT Tesfaye pearson MD [facility] CPT-77907 Level 4 Est. Patient 13:12:56 CDT Tesfaye pearson MD [facility]-00816 Level 4 Est. Patient 21:24:55 LINK ASSEMBLER Tesfaye pearson MD [facility]-67310 Level 3 Est. Patient 13:45:04 LINK ASSEMBLER Tesfaye pearson MD [facility] CPT-01341 Level 4 Est. Patient 13:50:45 CDT Tesfaye pearson MD [facility] CPT-50079 Level 3 Est. Patient 10:16:10 CDT Tesfaye pearson MD [facility] CPT-42581 Level 3 Est. Patient 16:36:07 LINK ASSEMBLER Kayla jameson MD [facility] CPT-64170 Level 4 Est. Patient 16:00:14 LINK ASSEMBLER Tesfaye pearson MD [facility] CPT-51350 Level 4 Est. Patient 11:02:24 LINK ASSEMBLER Tesfaye pearson MD [facility] CPT-10048 Level 3 Est. Patient 20:21:43 LINK ASSEMBLER Kayla jameson MD [facility] CPT-11380 Level 3 Est. Patient 13:27:28 LINK ASSEMBLER Kayla jameson MD [facility] CPT-46140 Level 4 Est. Patient 15:57:17 LINK ASSEMBLER Tesfaye pearson MD [facility] CPT-41243 Level 3 New Patient 13:25:47 CDT Tesfaye kidd MD [facility] CPT-60525 Level 3 New Patient 17:22:21 CDT Kayla angel [facility] Procedures Code Procedure Name Date Entry Date Standard Desc ription CPT-G0439 Subsequent Annual Wellness Exam 22:18:11 CDT CPT-05356 Bone Density - XRAY USE ONLY 11:43:58 CDT 2 CPT-45437 Bone Density - XRAY USE ONLY 10:05:16 CDT 2 CPT-22971 Prv Med New Pt 40-64 yrs 18:19:25 CDT 2016 CPT-88278 Foot, right, comp min 3V - XRAY USE ONLY 10:38:34 CDT CPT-G0439 Subsequent Annual Wellness Exam 13:55:04 CDT CPT-G0438 Initial Annual Wellness Exam 11:23:17 CD T CPT-J2930 Solu Medrol 125 mg (Methyl Prednisolone Sodium Succinate) 17:29:12 LINK ASSEMBLER CPT-99622 Abx/Therapy Injection 17:29:11 LINK ASSEMBLER CPT-J2930 Solu Medrol 125 mg (Methyl Prednisolone Sodium Succinate) 12:34:38 LINK ASSEMBLER CPT-J3420 Vitamin B12 1000mcg (Cyanocobalamin) 09:12:55 CDT CPT-J3420 Vitamin B12 1000mcg (Cyanocobalamin) 16:28:06 LINK ASSEMBLER CPT-55557 Venipuncture Draw Fee 08:39:53 CDT CPT-J3420 Vitamin B12 1000mcg (Cyanocobalamin) 08:46:22 CDT CPT-48319 Abx/Therapy Injection 08:46:22 CDT CPT-J3420 Vitamin B12 1000mcg (Cyanocobalamin) 08:41:26 CDT CPT-17067 Abx/Therapy Injection 08:41:26 CDT CPT-J3420 Vitamin B12 1000mcg (Cyanocobalamin) 08:57:15 CDT CPT-15986 Abx/Therapy Injection 08:57:15 CDT CPT-J3420 Vitamin B12 1000mcg (Cyanocobalamin) 10:59:03 CDT CPT-30224 Abx/Therapy Injection 10:59:03 CDT CPT-J3420 Vitamin B12 1000mcg (Cyanocobalamin) 15:05:39 CDT CPT-71627 Abx/Therapy Injection 15:05:39 CDT CPT-J3420 Vitamin B12 1000mcg (Cyanocobalamin) 13:50:45 CDT CPT-J3420 Vitamin B12 1000mcg (Cyanocobalamin) 08:48:55 CDT CPT-42670 Abx/Therapy Injection 08:48:55 CDT CPT-J3420 Vitamin B12 1000mcg (Cyanocobalamin) 09:14:54 CDT CPT-26462 Abx/Therapy Injection 09:14:54 CDT CPT-J3420 Vitamin B12 1000mcg (Cyanocobalamin) 09:06:06 CDT CPT-97397 Abx/Therapy Injection 09:06:06 CDT CPT-J3420 Vitamin B12 1000mcg (Cyanocobalamin) 09:49:14 CDT CPT-48497 Abx/Therapy Injection 09:49:14 CDT CPT-J3420 Vitamin B12 1000mcg (Cyanocobalamin) 09:10:30 LINK ASSEMBLER CPT-78053 Abx/Therapy Injection 09:10:30 LINK ASSEMBLER CPT-J3420 Vitamin B12 1000mcg (Cyanocobalamin) 09:11:07 LINK ASSEMBLER CPT-82293 Abx/Therapy Injection 09:11:07 LINK ASSEMBLER CPT-J3420 Vitamin B12 1000mcg (Cyanocobalamin) 09:57:03 LINK ASSEMBLER CPT-96279 Abx/Therapy Injection 09:57:03 LINK ASSEMBLER CPT-J3420 Vitamin B12 1000mcg (Cyanocobalamin) 09:23:21 LINK ASSEMBLER CPT-31763 Abx/Therapy Injection 09:23:21 LINK ASSEMBLER CPT-50240 Urine Dip (Floor Use Only) 20:21:44 LINK ASSEMBLER 201 02/12/11 CPT-52569 UA Dip Auto (Floor Use Only) 10:04:39 LINK ASSEMBLER 2 CPT-06775 Urine Dip (Floor Use Only) 13:27:28 LINK ASSEMBLER 201 02/12/01 CPT-22576 Bladder Scan 13:27:28 LINK ASSEMBLER CPT-50440 Abd single AP View 14:30:51 LINK ASSEMBLER CPT-OV Office Visit 10:15:43 CDT CPT-44802 Urine Dip (Floor Use Only) 17:22:21 CDT 201 02/09/02 CPT-46322 Bladder Scan 17:22:21 CDT
--- OUTSIDE RECORDS SUMMARY | 2020-05-05 12:35 | XMS REPORT | Clinical Summary ---
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 [...] then 1 po q days 2-5 AZITHROMYCIN 71366745334 No Longer Active Tesfaye Sherman MD Acti ve BACTRIM DS 800-160 MG TAB 1 tab by mouth twice daily 2 TRIMETHOPRIM-SULFAMETHOXAZOLE 15720519789 No Longer Active Tesfaye Sherman MD Active VITAMIN D3 2000 UNIT TABS 1 daily, for vitamin D deficiency CHOLECALCIFEROL 38001270265 Active Tesfaye Sherman MD Activ e PRELIEF 340 (65-50) MG (CA-P) ORAL TABS CALCIUM GLYCEROPHOSPHATE 00918402324 Active Tesfaye Sherman MD Active [facility] NIACIN FLUSH FREE 400-100 MG CAPS 1 daily NIACIN-INOSITOL 65644005322 Active Kayla Cooper MD Active DIFLUCAN 150 MG TABS 1 qd FLUCONAZOLE 70715 616505 No Longer Active Kayla Cooper MD Active FLUTICASONE PROPIONATE 50 MCG/ACT SUSP 1 spray each nostril twice daily FLUTICASONE PROPIONATE 40795952650 Active Tesfaye armenta MD Active LOVASTATIN 20 MG TABS Take 1 tablet by mouth daily LOVASTATIN 36055099730 No Longer Active Tesfaye Sherman MD Active MELOXICAM 7.5 MG TABS 1 tablet by mouth daily M ELOXICAM 56218628322 No Longer Active Tesfaye Sherman MD Active GABAPENTIN 300 MG CAPS Take two tablets by mouth every evening GABAPENTIN 07442162622 No Longer Active Edith Burch MD Active TRIMETHOPRIM 100 MG TABS 1/2 qd TRIMETHOPRIM 0534367 3001 Active Kayla Cooper MD Active TIZANIDINE HCL 2 MG TABS take one tablet by mouth every day at bedtime at 9pm TIZANIDINE HCL 08402989886 Active Kayla Cooper MD Active OXYCODONE-ACETAMINOPHEN 5-325 MG TABS Take one tablet by mouth every 6 hours as needed. Max 12 tabs/day as needed OXYCODONE-ACETAMINOP HEN 32364016195 Active Tesfaye Sherman MD Active CYMBALTA 60 MG CPEP Take 1 tablet by mouth daily D ULOXETINE HCL 56680162846 Active Kayla Cooper MD Active CLONAZEPAM 0.5 MG TABS Take one tablet in the morning and 1.5 table t at 7pm CLONAZEPAM 59788457281 Active Kayla Cooper MD Active CETIRIZINE HCL 5 MG TABS Take 1 tablet by mouth daily CETIRIZINE HCL 84983362403 Active Kayla Cooper MD Active BACLOFEN 10 MG TABS Take one tablet by mouth three times a day BACLOFEN 45522326581 Active Kayla Cooper MD Active GABAPENTIN 300 MG CAPS Take two tablets by mouth every evening GABAPENTIN 300 MG CAPS 835358 GABAPENTIN Inactive MELOXICAM 7.5 MG TABS 1 tablet by mouth daily MELOXICAM 7.5 MG TABS 750307 MELOXICAM Inactive LOVASTATIN 20 MG TABS Take 1 tablet by mouth daily 201 02/12/20 LOVASTATIN 20 MG TABS 993297 LOVASTATIN Inactive DIFLUCAN 150 MG TABS 1 qd DIFLUCAN 150 MG T ABS 521742 FLUCONAZOLE Inactive BACTRIM DS 800-160 MG TAB 1 tab by mouth twice daily 2 BACTRIM DS 800-160 MG TAB TRIMETHOPRIM-SULFAMETHOXAZOLE Inac tive ZITHROMAX 250 MG TAB 2 po today, then 1 po q days 2-5 ZITHROMAX 250 MG TAB 1909120 AZITHROMYCIN Inactive Advance Directives Directive Description Start [...] Panel - Chemistry sodium, serum 138 mmol/L 353-101 4278/10/20 potassium, serum 4.5 mmol/L 3.5-5.2 chloride, serum [...] 0.90 mg/dL 0.00-1.00 cholesterol, serum 237 mg/dL 355-733 6551/10/20 triglyceride, serum, fasting 71 mg/dL 30-200 HDL [...] Panel - Chemistry cholesterol, serum 221 mg/dL 674-179 5318/01/23 triglyceride, serum, fasting 81 mg/dL 30-200 HDL [...] negative Encounters Code Encounter Date Provider Facility CPT-63286 Level 3 Est. Patient 10:16:10 CDT Tesfaye pearson MD [facility] CPT-86561 Level 3 Est. Patient 16:36:07 HYDRAULIC CORRUGATING MACHINE OPERATOR Kayla jameson MD [facility] CPT-79652 Level 4 Est. Patient 16:00:14 HYDRAULIC CORRUGATING MACHINE OPERATOR Tesfaye pearson MD [facility]-25589 Level 4 Est. Patient 11:02:24 HYDRAULIC CORRUGATING MACHINE OPERATOR Tesfaye pearson MD [facility] CPT-38627 Level 3 Est. Patient 20:21:43 HYDRAULIC CORRUGATING MACHINE OPERATOR Kayla jameson MD [facility] CPT-23718 Level 3 Est. Patient 13:27:28 HYDRAULIC CORRUGATING MACHINE OPERATOR Kayla jameson MD [facility] CPT-77790 Level 4 Est. Patient 15:57:17 HYDRAULIC CORRUGATING MACHINE OPERATOR Tesfaye pearson MD [facility] CPT-18688 Level 3 New Patient 13:25:47 CDT Tesfaye kidd MD [facility] CPT-13000 Level 3 New Patient 17:22:21 CDT J John angel MD [facility] Procedures Code Procedure Name Date Entry Date Standard Desc ription CPT-J3420 Vitamin B12 1000mcg (Cyanocobalamin) 08:48:55 CDT CPT-47464 Abx/Therapy Injection 08:48:55 CDT CPT-J3420 Vitamin B12 1000mcg (Cyanocobalamin) 09:14:54 CDT CPT-06284 Abx/Therapy Injection 09:14:54 CDT CPT-J3420 Vitamin B12 1000mcg (Cyanocobalamin) 09:06:06 CDT CPT-88017 Abx/Therapy Injection 09:06:06 CDT CPT-J3420 Vitamin B12 1000mcg (Cyanocobalamin) 09:49:14 CDT CPT-43730 Abx/Therapy Injection 09:49:14 CDT CPT-J3420 Vitamin B12 1000mcg (Cyanocobalamin) 09:10:30 HYDRAULIC CORRUGATING MACHINE OPERATOR CPT-08517 Abx/Therapy Injection 09:10:30 HYDRAULIC CORRUGATING MACHINE OPERATOR CPT-J3420 Vitamin B12 1000mcg (Cyanocobalamin) 09:11:07 HYDRAULIC CORRUGATING MACHINE OPERATOR CPT-76738 Abx/Therapy Injection 09:11:07 HYDRAULIC CORRUGATING MACHINE OPERATOR CPT-J3420 Vitamin B12 1000mcg (Cyanocobalamin) 09:57:03 HYDRAULIC CORRUGATING MACHINE OPERATOR CPT-50021 Abx/Therapy Injection 09:57:03 HYDRAULIC CORRUGATING MACHINE OPERATOR CPT-J3420 Vitamin B12 1000mcg (Cyanocobalamin) 09:23:21 HYDRAULIC CORRUGATING MACHINE OPERATOR CPT-01030 Abx/Therapy Injection 09:23:21 HYDRAULIC CORRUGATING MACHINE OPERATOR CPT-97220 Urine Dip (Floor Use Only) 20:21:44 HYDRAULIC CORRUGATING MACHINE OPERATOR 201 02/12/11 CPT-28237 UA Dip Auto (Floor Use Only) 10:04:39 HYDRAULIC CORRUGATING MACHINE OPERATOR 2 CPT-09232 Urine Dip (Floor Use Only) 13:27:28 HYDRAULIC CORRUGATING MACHINE OPERATOR 201 02/12/01 CPT-76129 Bladder Scan 13:27:28 HYDRAULIC CORRUGATING MACHINE OPERATOR CPT-01960 Abd single AP View 14:30:51 HYDRAULIC CORRUGATING MACHINE OPERATOR CPT-OV Office Visit 10:15:43 CDT CPT-62041 Urine Dip (Floor Use Only) 17:22:21 CDT 201 02/09/02 CPT-99455 Bladder Scan 17:22:21 CDT
--- OUTSIDE RECORDS SUMMARY | 2020-05-05 12:36 | XMS REPORT | Clinical Summary ---
Author Author Talon, Jeri Wood Organization [employer] Address Unknown Phone Unavailable Allergies, Adverse Reactions, [...] 6 hours as needed. Use sparingly OXYCODONE-ACETAMINOPHEN [id number] Active Tesfaye Sherman MD Active PREDNISONE 20 MG ORAL TABLET 1 tab twice daily for 3 d ay, then one daily for three days PREDNISONE 24863621416 No Longer Active Tesfaye Sherman MD Active PROAIR HFA 108 (90 BASE) MCG/ACT INHALATION AEROSOL SO LUTION 1 puff every 6 hours as needed ALBUTEROL SULFATE 69331832301 Active Odem nda Raida Active MECLIZINE HCL 25 MG ORAL TABLET one 4 times a day as needed for dizziness MECLIZINE HCL 06477245817 Active Laurence Raida Active DIFLUCAN 100 MG ORAL TABLET 1 tablet by mouth daily FLUCONAZOLE 93453202882 Active Laurence Raida Active AMOXICILLIN 500 MG ORAL CAPSULE 1 cap by mouth three times a day AMOXICILLIN 45727854883 No Longer Active Laurence Raida Acti ve VENLAFAXINE HCL 75 MG ORAL TABLET 1 am 1/2 at noon VENLAFAXINE HCL 13830718104 Active Tesfaye Sherman MD Active DIFLUCAN 100 MG ORAL TABLET 1 tablet by mouth daily 20 19/08/26 FLUCONAZOLE 48320702234 No Longer Active Tesfaye Sherman MD Acti ve BACTRIM DS 800-160 MG ORAL TABLET 1 tab by mouth twice daily 201 05/10/28 TRIMETHOPRIM-SULFAMETHOXAZOLE 08751198240 No Longer Active Fer mirna Angelica Active FOSAMAX 70 MG ORAL TABLET 1 po qweek. Take 30min prio r to first food/drink. Avoid lying down x 1 hour. ALENDRONATE SODIUM 59902306 144 No Longer Active Laurence Lopezduyen Active REPHRESH PRO-B ORAL CAPSULE 1 tablet daily LACT OBACILLUS 00439914384 Active Edith Burch MD Active CYMBALTA 60 MG ORAL CAPSULE DELAYED RELEASE PARTICLES Take 1 tablet by mouth daily DULOXETINE HCL 53145554276 No Longer Active Edith Burch MD Active CYMBALTA 30 MG ORAL CAPSULE DELAYED RELEASE PARTICLES 1 cap by mouth daily with 60mg DULOXETINE HCL 80631076370 No Longer Active Jordan Burch MD Active FISH OIL 1000 MG ORAL CAPSULE DELAYED RELEASE 1 pill b y mouth daily for cholesterol OMEGA-3 FATTY ACIDS 19318674479 Active Cee Jaffe LPN Active RED YEAST RICE 600 MG ORAL CAPSULE 1 pill by mouth daily RED YEAST RICE EXTRACT 94675584607 Active Rosa Jaffe LPN Activ e DIFLUCAN 100 MG ORAL TABLET 1 tablet by mouth daily 20 19/03/05 FLUCONAZOLE 19712827429 No Longer Active Tesfaye Sherman MD Acti ve BACTRIM DS 800-160 MG ORAL TABLET 1 tab by mouth twice daily 201 05/06/28 TRIMETHOPRIM-SULFAMETHOXAZOLE 60044667469 No Longer Active Umer Sherman MD Active BACTRIM DS 800-160 MG ORAL TABLET 1 tab by mouth twice daily 201 05/04/15 TRIMETHOPRIM-SULFAMETHOXAZOLE 44778870897 No Longer Active Umer Sherman MD Active DIFLUCAN 150 MG ORAL TABLET 1 tablet by mouth daily 20 18/09/20 FLUCONAZOLE 62503506520 No Longer Active Tesfaye Sherman MD Acti ve BACTRIM DS 800-160 MG ORAL TABLET 1 tab by mouth twice daily 201 04/13/17 TRIMETHOPRIM-SULFAMETHOXAZOLE 46409738194 No Longer Active Umer Sherman MD Active ROPINIROLE HCL 0.25 MG ORAL TABLET 1 TAB PO Q HS ROPINIROLE HCL 60799026615 Active Tesfaye Sherman MD Active CEFTIN 250 MG ORAL TABLET 1 tablet twice daily x 7 days CEFUROXIME AXETIL 29150824977 No Longer Active Tesfaye Sherman MD Active DIFLUCAN 100 MG ORAL TABLET 1 tablet by mouth every other da y for 2 doses FLUCONAZOLE 07259643174 No Longer Active Tesfaye barron MD Active DIFLUCAN 100 MG ORAL TABLET 1 tablet by mouth daily X 3 DAYS 201 04/09/01 FLUCONAZOLE 15929673987 No Longer Active Rj Lyons tive MIRTAZAPINE 15 MG ORAL TABLET 1/2 tab by mouth at bedtime. 03/13 MIRTAZAPINE 80578683342 No Longer Active Tesfaye Sherman MD Active BACTRIM DS 800-160 MG ORAL TABLET 1 tab by mouth twice daily 201 04/09/01 TRIMETHOPRIM-SULFAMETHOXAZOLE 21459943915 No Longer Active Umer Sherman MD Active PRAMIPEXOLE DIHYDROCHLORIDE 0.125 MG ORAL TABLET take 1 tablet po qhs for restless leg syndrome. PRAMIPEXOLE DIHYDROCHLORI DE 47486781385 No Longer Active Tesfaye Sherman MD Active MAGNESIUM 400 MG ORAL TABLET 1 tab po daily MAGNE SIUM 56859489005 Active Chelsea Barba APRN Active SUDAFED 24 HOUR 240 MG ORAL TABLET EXTENDED RELEASE 24 HOUR 1 tab po daily PSEUDOEPHEDRINE HCL 93422784975 Active Chelsea NAPOLES RN Active CETIRIZINE HCL 5 MG ORAL TABLET Take 1 tablet by mouth daily CETIRIZINE HCL 57897984555 No Longer Active Chelsea Barba APRN Ac tive TRIMETHOPRIM 100 MG ORAL TABLET 1/2 qd TRIM ETHOPRIM 80623669789 No Longer Active Chelsea Barba APRN Active BACTRIM DS 800-160 MG ORAL TABLET 1 tab by mouth twice daily 201 04/04/11 TRIMETHOPRIM-SULFAMETHOXAZOLE 17904171496 No Longer Active Umer Sherman MD Active BACTRIM DS 800-160 MG ORAL TABLET 1 tab by mouth twice daily X 10 DAYS TRIMETHOPRIM-SULFAMETHOXAZOLE 78080675143 No Longer Active Tesfaye Sherman MD Active AMOXICILLIN 500 MG ORAL CAPSULE 1 cap by mouth three times a day AMOXICILLIN 11937245733 No Longer Active Adriana Arredondo Active MECLIZINE HCL 25 MG ORAL TABLET one tab po qday prn dizziness 09/08 MECLIZINE HCL 45614284098 Active Tesfaye Sherman MD Active B-12 1000 MCG ORAL LOZENGE 1 tab po daily CYANO COBALAMIN 95488762661 Active Tesfaye Sherman MD Active VITAMIN D3 2000 UNIT ORAL TABLET 1 daily, for vitamin D deficien cy CHOLECALCIFEROL 86043516737 No Longer Active Tesfaye Sherman MD Active TIZANIDINE HCL 2 MG ORAL TABLET take 1-2 tablet by mo [facility] every day at bedtime at 9pm PRN TIZANIDINE HCL 03448154204 Active Tesfaye hewitt MD Active ZITHROMAX 250 MG ORAL TABLET 2 po today, then 1 po q days 2-5 20 15/02/10 AZITHROMYCIN 83550891156 No Longer Active Tesfaye Sherman MD Active BACTRIM DS 800-160 MG ORAL TABLET 1 tab by mouth twice daily 201 03/03/23 TRIMETHOPRIM-SULFAMETHOXAZOLE 39912309161 No Longer Active Umer Sherman MD Active PRELIEF 340 (65-50) MG (CA-P) ORAL TABLET CALCIUM GLYCEROPHOSPHATE 44462421952 Active Tesfaye Sherman MD Acti ve [facility] NIACIN FLUSH FREE 400-100 MG ORAL CAPSULE 1 daily NIACIN-INOSITOL 62653942875 Active Kayla Cooper MD Activ e DIFLUCAN 150 MG ORAL TABLET 1 qd FLUCONAZOL E 76022726824 No Longer Active Kayla Cooper MD Active FLUTICASONE PROPIONATE 50 MCG/ACT NASAL SUSPENSION 1 spray each nostril twice daily FLUTICASONE PROPIONATE 65892125805 Active D patricia Sherman MD Active LOVASTATIN 20 MG ORAL TABLET Take 1 tablet by mouth daily LOVASTATIN 50389599735 No Longer Active Tesfaye Sherman MD Acti ve MELOXICAM 7.5 MG ORAL TABLET 1 tablet by mouth daily 2 MELOXICAM 22459411920 No Longer Active Tesfaye Sherman MD Acti ve GABAPENTIN 300 MG ORAL CAPSULE Take two tablets by mouth every e vening GABAPENTIN 96066345445 No Longer Active Edith Burch MD A ctive CLONAZEPAM 0.5 MG ORAL TABLET Take one tablet in the m orning and 1.5 tablet at 7pm CLONAZEPAM 45395507600 Active Kayla Cooper MD Active BACLOFEN 10 MG ORAL TABLET Take one tablet by mouth three times a d ay BACLOFEN 07330570079 Active Kayla Cooper MD Active GABAPENTIN 300 MG ORAL CAPSULE Take two tablets by mouth every e vening GABAPENTIN 300 MG ORAL CAPSULE 461372 GABAPENTIN I nactive MELOXICAM 7.5 MG ORAL TABLET 1 tablet by mouth daily 2 MELOXICAM 7.5 MG ORAL TABLET 794681 MELOXICAM Inactive LOVASTATIN 20 MG ORAL TABLET Take 1 tablet by mouth daily LOVASTATIN 20 MG ORAL TABLET 399876 LOVASTATIN Inactive DIFLUCAN 150 MG ORAL TABLET 1 qd DIFLUCAN 150 MG ORAL TABLET 439658 FLUCONAZOLE Inactive VITAMIN D3 2000 UNIT ORAL TABLET 1 daily, for vitamin D deficien cy VITAMIN D3 2000 UNIT ORAL TABLET CHOLECALCIFEROL Inactive AMOXICILLIN 500 MG ORAL CAPSULE 1 cap by mouth three times a day AMOXICILLIN 500 MG ORAL CAPSULE 779216 AMOXICILLIN Inactive BACTRIM DS 800-160 MG ORAL TABLET 1 tab by mouth twice daily X 10 DAYS BACTRIM DS 800-160 MG ORAL TABLET 301813 TRIMETHOPRIM-SULFAMETHOXAZOLE Inactive TRIMETHOPRIM 100 MG ORAL TABLET 1/2 qd 7 TRIMETHOPRIM 100 MG ORAL TABLET 121551 TRIMETHOPRIM Inactive CETIRIZINE HCL 5 MG ORAL TABLET Take 1 tablet by mouth daily CETIRIZINE HCL 5 MG ORAL TABLET 9864435 CETIRIZINE HCL Inactive PRAMIPEXOLE DIHYDROCHLORIDE 0.125 MG ORAL TABLET take 1 tablet po qhs for restless leg syndrome. PRAMIPEXOLE DIHYD ROCHLORIDE 0.125 MG ORAL TABLET 042222 PRAMIPEXOLE DIHYDROCHLORIDE Inactive MIRTAZAPINE 15 MG ORAL TABLET 1/2 tab by mouth at bedtime. 03/13 MIRTAZAPINE 15 MG ORAL TABLET 151839 MIRTAZAPINE In active DIFLUCAN 100 MG ORAL TABLET 1 tablet by mouth daily X 3 DAYS 201 04/09/01 DIFLUCAN 100 MG ORAL TABLET 725263 FLUCONAZOLE Inac tive DIFLUCAN 100 MG ORAL TABLET 1 tablet by mouth every other da y for 2 doses DIFLUCAN 100 MG ORAL TABLET 639410 FLUCONAZOLE Inactive CEFTIN 250 MG ORAL TABLET 1 tablet twice daily x 7 days CEFTIN 250 MG ORAL TABLET 085559 CEFUROXIME AXETIL Inactive CYMBALTA 30 MG ORAL CAPSULE DELAYED RELEASE PARTICLES 1 cap by mouth daily with 60mg CYMBALTA 30 MG ORAL CAPSULE DELAYED RELEASE PARTICLES 590509 DULOXETINE HCL Inactive CYMBALTA 60 MG ORAL CAPSULE DELAYED RELEASE PARTICLES Take 1 tablet by mouth daily CYMBALTA 60 MG ORAL CAPSULE DELAYED RELEA SE PARTICLES 060336 DULOXETINE HCL Inactive FOSAMAX 70 MG ORAL TABLET 1 po qweek. Take 30min prio r to first food/drink. Avoid lying down x 1 hour. FOSAMAX 70 MG ORAL TA BLET 507275 ALENDRONATE SODIUM Inactive DIFLUCAN 100 MG ORAL TABLET 1 tablet by mouth daily 19/08/26 DIFLUCAN 100 MG ORAL TABLET 280543 FLUCONAZOLE Inactive PREDNISONE 20 MG ORAL TABLET 1 tab twice daily for 3 d ay, then one daily for three days PREDNISONE 20 MG ORAL TABLET 851252 PREDNIS ONE Inactive BACTRIM DS 800-160 MG ORAL TABLET 1 tab by mouth twice daily 201 03/03/23 BACTRIM DS 800-160 MG ORAL TABLET 19830105 TRIMETHOPRIM-SULFAMETHOXAZOLE Inactive ZITHROMAX 250 MG ORAL TABLET 2 po today, then 1 po q days 2-5 20 15/02/10 ZITHROMAX 250 MG ORAL TABLET 449255 AZITHROMYCIN Mayela ctive BACTRIM DS 800-160 MG ORAL TABLET 1 tab by mouth twice daily 201 04/04/11 BACTRIM DS 800-160 MG ORAL TABLET 19830105 TRIMETHOPRIM-SULFAMETHOXAZOLE Inactive BACTRIM DS 800-160 MG ORAL TABLET 1 tab by mouth twice daily 201 04/09/01 BACTRIM DS 800-160 MG ORAL TABLET 793328 TRIMETHOPRIM-SULFAMETHOXAZOLE Inactive BACTRIM DS 800-160 MG ORAL TABLET 1 tab by mouth twice daily 201 04/13/17 BACTRIM DS 800-160 MG ORAL TABLET 972363 TRIMETHOPRIM-SULFAMETHOXAZOLE Inactive DIFLUCAN 150 MG ORAL TABLET 1 tablet by mouth daily 20 18/09/20 DIFLUCAN 150 MG ORAL TABLET 19760712 FLUCONAZOLE Inactive BACTRIM DS 800-160 MG ORAL TABLET 1 tab by mouth twice daily 201 05/04/15 BACTRIM DS 800-160 MG ORAL TABLET 551581 TRIMETHOPRIM-SULFAMETHOXAZOLE Inactive BACTRIM DS 800-160 MG ORAL TABLET 1 tab by mouth twice daily 201 05/06/28 BACTRIM DS 800-160 MG ORAL TABLET 636577 TRIMETHOPRIM-SULFAMETHOXAZOLE Inactive DIFLUCAN 100 MG ORAL TABLET 1 tablet by mouth daily 20 19/03/05 DIFLUCAN 100 MG ORAL TABLET 19760711 FLUCONAZOLE Inactive BACTRIM DS 800-160 MG ORAL TABLET 1 tab by mouth twice daily 201 05/10/28 BACTRIM DS 800-160 MG ORAL TABLET 19830105 TRIMETHOPRIM-SULFAMETHOXAZOLE Inactive AMOXICILLIN 500 MG ORAL CAPSULE 1 cap by mouth three times a day AMOXICILLIN 500 MG ORAL CAPSULE 264008 AMOXICILLIN Inactive Advance Directives Directive Description Start Date PERMISSION TO SHARE DISCUSSED WITH PATIENT -- NO DECISION MADE DURABLE POWER OF INVENTORY ASSISTANT FOR HEALTHCARE Vital Signs Date Name Value Unit Range Description blood pressure, diastolic 84 mm[Hg] BP ylon blood pressure, systolic 131 mm[Hg] BP sys [...] ... - Chemistry sodium, serum 144 mmol/L 975-560 1439/06/14 carbon dioxide, venous blood 29.4 mmol/L 21.0-32 .0 potassium, serum 4.4 mmol/L 3.5-5.2 chloride, serum 108 mmol/L 98-107 blood glucose 100 mg/dL 65-110 urea nitrogen, blood 9 mg/dL 7-18 creatinine, serum 0.67 mg/dL 0.55-1.30 alanine aminotransferase (SGPT), serum 24 U/L 12-78 aspartate aminotransferase (SGOT), serum 15 U/L 15-37 calcium, serum 9.3 mg/dL 8.5-10.1 bilirubin, serum, total 0.50 mg/dL 0.00-1.00 cholesterol, serum 268 mg/dL 964-555 9269/06/14 triglyceride, serum, fasting 126 mg/dL 30-200 HDL cholesterol, serum 51 mg/dL 32-96 LDL cholesterol, serum 192 mg/dL 0-130 TSH 0.83 m[iU]/mL 0.36-3.74 thyroxine, serum, free 1.03 ng/dL 0.76-1.46 uric acid, serum 3.2 mg/dL 2.6-7.2 Lab Report: Comp. Metabolic Panel, [facility] - Chemistry sodium, serum 141 mmol/L 850-033 1444/01/26 carbon dioxide, venous blood 29.5 mmol/L 21.0-32 [...] mg/dL Encounters Code Encounter Date Provider Facility CPT-59600 Level 4 Est. Patient 14:44:33 SPINNING B[employer] PERSON Tesfaye pearson MD [facility] CPT-01716 Level 4 Est. Patient 13:55:29 [employer]NING [employer] PERSON Tesfaye pearson MD [facility] CPT-13935 Level 4 Est. Patient 17:07:34 [employer]NING [employer] PERSON Tesfaye pearson MD [facility] CPT-06739 Level 4 Est. Patient 13:56:54 CDT Tesfaye pearson MD [facility] CPT-70828 Level 4 Est. Patient 13:24:25 CDT Stephanie MERCADO [facility] CPT-87359 Level 4 Est. Patient 09:14:56 CDT Tesfaye pearson MD [facility] CPT-81132 Level 4 Est. Patient 18:40:25 [employer]NING [employer] PERSON Tesfaye pearson MD [facility] CPT-89972 Level 4 Est. Patient 18:13:07 [employer]NING [employer] PERSON Tesfaye pearson MD [facility] CPT-71532 Level 3 Est. Patient 10:46:32 CDT Rj cotto DO [facility] CPT-21299 Level 4 Est. Patient 20:19:25 CDT Tesfaye pearson MD [facility] CPT-86701 Level 3 Est. Patient 09:07:31 CDT Tesfaye pearson MD [facility]-13217 Level 4 Est. Patient 13:12:56 CDT Tesfaye pearson MD [facility]-54892 Level 4 Est. Patient 21:24:55 SP[employer]NING BATH PERSON eTsfaye pearson MD [facility]-31561 Level 3 Est. Patient 13:45:04 SPINNING BATH PERSON Tesfaye pearson MD [facility] CPT-02181 Level 4 Est. Patient 13:50:45 CDT Tesfaye pearson MD [facility] CPT-93984 Level 3 Est. Patient 10:16:10 CDT Tesfaye pearson MD [facility] CPT-84960 Level 3 Est. Patient 16:36:07 SP[employer]NING B[employer] PERSON Kayla jameson MD [facility]-69508 Level 4 Est. Patient 16:00:14 SP[employer]NING BATH PERSON Tesfaye pearson MD [facility]-20804 Level 4 Est. Patient 11:02:24 SPINNING BATH PERSON Tesfaye pearson MD [facility]-74556 Level 3 Est. Patient 20:21:43 SP[employer]NING BATH PERSON Kayla jameson MD [facility]-34689 Level 3 Est. Patient 13:27:28 SP[employer]NING BATH PERSON Kayla jameson MD [facility]-04837 Level 4 Est. Patient 15:57:17 SPINNING BATH PERSON Tesfaye pearson MD [facility] CPT-11598 Level 3 New Patient 13:25:47 CDT Tesfaye kidd MD [facility] CPT-92659 Level 3 New Patient 17:22:21 CDT Kayla angel MD [facility] Procedures Code Procedure Name Date Entry Date Standard Desc ription CPT-92870 Bone Density - XRAY USE ONLY 11:43:58 CDT 2 CPT-47133 Bone Density - XRAY USE ONLY 10:05:16 CDT 2 CPT-76545 Prv Med New Pt 40-64 yrs 18:19:25 CDT 2016 CPT-33991 Foot, right, comp min 3V - XRAY USE ONLY 10:38:34 CDT CPT-G0439 Subsequent Annual Wellness Exam 13:55:04 CDT CPT-G0438 Initial Annual Wellness Exam 11:23:17 CD T CPT-J2930 Solu Medrol 125 mg (Methyl Prednisolone Sodium Succinate) 17:29:12 SP[employer]NING [employer] PERSON CPT-33543 Abx/Therapy Injection 17:29:11 SPINNING BATH PERSON CPT-J2930 Solu Medrol 125 mg (Methyl Prednisolone Sodium Succinate) 12:34:38 SPINNING BATH PERSON CPT-J3420 Vitamin B12 1000mcg (Cyanocobalamin) 09:12:55 CDT CPT-J3420 Vitamin B12 1000mcg (Cyanocobalamin) 16:28:06 [employer]NING [employer] PERSON CPT-15709 Venipuncture Draw Fee 08:39:53 CDT CPT-J3420 Vitamin B12 1000mcg (Cyanocobalamin) 08:46:22 CDT CPT-96138 Abx/Therapy Injection 08:46:22 CDT CPT-J3420 Vitamin B12 1000mcg (Cyanocobalamin) 08:41:26 CDT CPT-09495 Abx/Therapy Injection 08:41:26 CDT CPT-J3420 Vitamin B12 1000mcg (Cyanocobalamin) 08:57:15 CDT CPT-55577 Abx/Therapy Injection 08:57:15 CDT CPT-J3420 Vitamin B12 1000mcg (Cyanocobalamin) 10:59:03 CDT CPT-15267 Abx/Therapy Injection 10:59:03 CDT CPT-J3420 Vitamin B12 1000mcg (Cyanocobalamin) 15:05:39 CDT CPT-76190 Abx/Therapy Injection 15:05:39 CDT CPT-J3420 Vitamin B12 1000mcg (Cyanocobalamin) 13:50:45 CDT CPT-J3420 Vitamin B12 1000mcg (Cyanocobalamin) 08:48:55 CDT CPT-83056 Abx/Therapy Injection 08:48:55 CDT CPT-J3420 Vitamin B12 1000mcg (Cyanocobalamin) 09:14:54 CDT CPT-15295 Abx/Therapy Injection 09:14:54 CDT CPT-J3420 Vitamin B12 1000mcg (Cyanocobalamin) 09:06:06 CDT CPT-64567 Abx/Therapy Injection 09:06:06 CDT CPT-J3420 Vitamin B12 1000mcg (Cyanocobalamin) 09:49:14 CDT CPT-66047 Abx/Therapy Injection 09:49:14 CDT CPT-J3420 Vitamin B12 1000mcg (Cyanocobalamin) 09:10:30 SPINNING BATH PERSON CPT-62619 Abx/Therapy Injection 09:10:30 SPINNING BATH PERSON CPT-J3420 Vitamin B12 1000mcg (Cyanocobalamin) 09:11:07 SPINNING BATH PERSON CPT-52939 Abx/Therapy Injection 09:11:07 SPINNING BATH PERSON CPT-J3420 Vitamin B12 1000mcg (Cyanocobalamin) 09:57:03 SPINNING BATH PERSON CPT-12411 Abx/Therapy Injection 09:57:03 SPINNING BATH PERSON CPT-J3420 Vitamin B12 1000mcg (Cyanocobalamin) 09:23:21 SPINNING BATH PERSON CPT-42884 Abx/Therapy Injection 09:23:21 SPINNING BATH PERSON CPT-65799 Urine Dip (Floor Use Only) 20:21:44 SPINNING BATH PERSON 201 02/12/11 CPT-80082 UA Dip Auto (Floor Use Only) 10:04:39 SPINNING BATH PERSON 2 CPT-27256 Urine Dip (Floor Use Only) 13:27:28 SPINNING BATH PERSON 201 02/12/01 CPT-22530 Bladder Scan 13:27:28 SPINNING B[employer] PERSON CPT-29086 Abd single AP View 14:30:51 SPINNING B[employer] PERSON CPT-OV Office Visit 10:15:43 CDT CPT-30213 Urine Dip (Floor Use Only) 17:22:21 CDT 201 02/09/02 CPT-01930 Bladder Scan 17:22:21 CDT
--- OUTSIDE RECORDS SUMMARY | 2020-05-05 12:36 | XMS REPORT | Clinical Summary ---
Author Author Talon, Jeri Wood Organization [place] Address Unknown Phone Unavailable Allergies, Adverse Reactions, [...] as needed for dizziness 2 MECLIZINE HCL 94546558631 Active Laurenceyohana Dominguez Active DIFLUCAN 100 MG TAB 1 tablet by mouth daily FLU CONAZOLE 10159173938 Active Laurence Angelica Active AMOXICILLIN 500 MG CAPS 1 cap by mouth three times a day AMOXICILLIN 76566003194 Active Laurence Angelica Active VENLAFAXINE HCL 75 MG TABS 1 am 1/2 at noon BALA LAFAXINE HCL 94272606147 Active Tesfaye Sherman MD Active DIFLUCAN 100 MG TAB 1 tablet by mouth daily FLU CONAZOLE 92690655927 No Longer Active Tesfaye Sherman MD Active BACTRIM DS 800-160 MG TAB 1 tab by mouth twice daily 2 TRIMETHOPRIM-SULFAMETHOXAZOLE 92116156188 No Longer Active Laurence Dominguez Active FOSAMAX 70 MG TABS 1 po qweek. Take 30min prio r to first food/drink. Avoid lying down x 1 hour. ALENDRONATE SODIUM 24331987208 N o Longer Active Laurence Angelica Active REPHRESH PRO-B ORAL CAPS 1 tablet daily LACTOBACI LLUS 94020956539 Active Edith Burch MD Active CYMBALTA 60 MG CPEP Take 1 tablet by mouth daily 1 DULOXETINE HCL 69034083675 No Longer Active Edith Burch MD Active CYMBALTA 30 MG CPEP 1 cap by mouth daily with 60mg 201 05/09/11 DULOXETINE HCL 50217265437 No Longer Active Edith Burch MD Activ e FISH OIL 1000 MG CPDR 1 pill by mouth daily for cholesterol 04/18 OMEGA- 3 FATTY ACIDS 67371785779 Active Rosa Jaffe LPN Acti ve RED YEAST RICE 600 MG CAPS 1 pill by mouth daily RED YEAST RICE EXTRACT 21244738516 Active Rosa Jaffe LPN Activ e DIFLUCAN 100 MG TAB 1 tablet by mouth daily FLU CONAZOLE 47513331932 No Longer Active Tesfaye Sherman MD Active BACTRIM DS 800-160 MG TAB 1 tab by mouth twice daily 2 TRIMETHOPRIM-SULFAMETHOXAZOLE 50853963382 No Longer Active Tesfaye Sherman MD Active BACTRIM DS 800-160 MG TAB 1 tab by mouth twice daily 2 TRIMETHOPRIM-SULFAMETHOXAZOLE 49971827960 No Longer Active Tesfaye Sherman MD Active DIFLUCAN 150 MG TAB 1 tablet by mouth daily FLU CONAZOLE 30596991321 No Longer Active Tesfaye Shemran MD Active BACTRIM DS 800-160 MG TAB 1 tab by mouth twice daily 2 TRIMETHOPRIM-SULFAMETHOXAZOLE 73903035202 No Longer Active Tesfaye Sherman MD Active ROPINIROLE HCL 0.25 MG ORAL TABS 1 TAB PO Q HS ROPINIROLE HCL 47820268897 Active Tesfaye Sherman MD Active CEFTIN 250 MG TAB 1 tablet twice daily x 7 days 11/19 CEFUROXIME AXETIL 17670526973 No Longer Active Tesfaey Sherman MD Acti ve DIFLUCAN 100 MG TABS 1 tablet by mouth every other day for 2 dos es FLUCONAZOLE 78863553309 No Longer Active Tesfaye Sherman MD Active DIFLUCAN 100 MG TAB 1 tablet by mouth daily X 3 DAYS 2 FLUCONAZOLE 54459649457 No Longer Active Rj Moss DO Active MIRTAZAPINE 15 MG ORAL TABS 1/2 tab by mouth at bedtime. MIRTAZAPINE 97469761813 No Longer Active Tesfaye Sherman MD Acti ve BACTRIM DS 800-160 MG TAB 1 tab by mouth twice daily 2 TRIMETHOPRIM-SULFAMETHOXAZOLE 89680093693 No Longer Active Tesfaye Sherman MD Active PRAMIPEXOLE DIHYDROCHLORIDE 0.125 MG ORAL TABS take 1 tablet po qhs for restless leg syndrome. PRAMIPEXOLE DIHYDROCHLORIDE 08162364432 No Longer Active Tesfaye Sherman MD Active MAGNESIUM 400 MG ORAL TABS 1 tab po daily MAGNESI UM 19619784487 Active Chelsea Barba APRN Active SUDAFED 24 HOUR 240 MG ORAL [id number] 1 tab po daily PSEUDOEPHEDRINE HCL 30834925865 Active Chelsea Barba APRN A ctive CETIRIZINE HCL 5 MG TABS Take 1 tablet by mouth daily CETIRIZINE HCL 55381303111 No Longer Active Chelsea Barba APRN Acti ve TRIMETHOPRIM 100 MG TABS 1/2 qd TRIMETHOPRIM 43426123473 No Longer Active Chelsea Barba APRN Active BACTRIM DS 800-160 MG TAB 1 tab by mouth twice daily 2 TRIMETHOPRIM-SULFAMETHOXAZOLE 42529240717 No Longer Active Tesfaye Sherman MD Active BACTRIM DS 800-160 MG TAB 1 tab by mouth twice daily X 10 DAYS 2 TRIMETHOPRIM-SULFAMETHOXAZOLE 56718010831 No Longer Active Umer Sherman MD Active AMOXICILLIN 500 MG CAPS 1 cap by mouth three times a day AMOXICILLIN 45073108743 No Longer Active Adriana Arredondo Active MECLIZINE HCL 25 MG TAB one tab po qday prn dizziness MECLIZINE HCL 80358783651 Active Tesfaye Sherman MD Active B-12 1000 MCG ORAL LOZG 1 tab po daily CYANOCOBAL STANTON 08521334655 Active Tesfaye Sherman MD Active VITAMIN D3 2000 UNIT TABS 1 daily, for vitamin D deficiency 2014 CHOLECALCIFEROL 16432532871 No Longer Active Tesfaye Sherman MD Active TIZANIDINE HCL 2 MG TABS take 1-2 tablet by mouth ev [place] day at bedtime at 9pm PRN TIZANIDINE HCL 91833037274 Active Tesfaye Owusu Active ZITHROMAX 250 MG TAB 2 po today, then 1 po q days 2-5 AZITHROMYCIN 27379445785 No Longer Active Tesfaye Sherman MD Acti ve BACTRIM DS 800-160 MG TAB 1 tab by mouth twice daily 2 TRIMETHOPRIM-SULFAMETHOXAZOLE 62040047298 No Longer Active Tesfaye Sherman MD Active PRELIEF 340 (65-50) MG (CA-P) ORAL TABS CALCIUM GLYCEROPHOSPHATE 63938603067 Active Tesfaye Sherman MD Active [facility] NIACIN FLUSH FREE 400-100 MG CAPS 1 daily NIACIN-INOSITOL 45278928730 Active Kayla Cooper MD Active DIFLUCAN 150 MG TABS 1 qd FLUCONAZOLE 39001 493419 No Longer Active Kayla Cooper MD Active FLUTICASONE PROPIONATE 50 MCG/ACT SUSP 1 spray each nostril twice daily FLUTICASONE PROPIONATE 50295048389 Active Tesfaye armenta MD Active LOVASTATIN 20 MG TABS Take 1 tablet by mouth daily LOVASTATIN 69192338436 No Longer Active Tesfaye Sherman MD Active MELOXICAM 7.5 MG TABS 1 tablet by mouth daily M ELOXICAM 90203548201 No Longer Active Tesfaye Sherman MD Active GABAPENTIN 300 MG CAPS Take two tablets by mouth every evening GABAPENTIN 52845548870 No Longer Active Edith Burch MD Active OXYCODONE-ACETAMINOPHEN 5-325 MG TABS Take one tablet by mouth every 6 hours as needed. Max 12 tabs/day as needed OXYCODONE-ACETAMINOP HEN 40230371177 Active Tesfaye Sherman MD Active CLONAZEPAM 0.5 MG TABS Take one tablet in the morning and 1.5 table t at 7pm CLONAZEPAM 23946543935 Active Kayla Cooper MD Active BACLOFEN 10 MG TABS Take one tablet by mouth three times a day BACLOFEN 43194084866 Active Kayla Cooper MD Active GABAPENTIN 300 MG CAPS Take two tablets by mouth every evening GABAPENTIN 300 MG CAPS 387562 GABAPENTIN Inactive MELOXICAM 7.5 MG TABS 1 tablet by mouth daily MELOXICAM 7.5 MG TABS 306605 MELOXICAM Inactive LOVASTATIN 20 MG TABS Take 1 tablet by mouth daily 201 02/12/20 LOVASTATIN 20 MG TABS 488411 LOVASTATIN Inactive DIFLUCAN 150 MG TABS 1 qd DIFLUCAN 150 MG T ABS 940536 FLUCONAZOLE Inactive VITAMIN D3 2000 UNIT TABS 1 daily, for vitamin D deficiency 2014 VITAMIN D3 2000 UNIT TABS CHOLECALCIFEROL Inacti ve AMOXICILLIN 500 MG CAPS 1 cap by mouth three times a day AMOXICILLIN 500 MG CAPS 419994 AMOXICILLIN Inactive BACTRIM DS 800-160 MG TAB 1 tab by mouth twice daily X 10 DAYS 2 BACTRIM DS 800-160 MG TAB 154418 TRIMETHOPRIM-SULFAMETH OXAZOLE Inactive TRIMETHOPRIM 100 MG TABS 1/2 qd TRIMETHOPRI M 100 MG TABS 436816 TRIMETHOPRIM Inactive CETIRIZINE HCL 5 MG TABS Take 1 tablet by mouth daily CETIRIZINE HCL 5 MG TABS 7891897 CETIRIZINE HCL Inactive PRAMIPEXOLE DIHYDROCHLORIDE 0.125 MG ORAL TABS take 1 tablet po qhs for restless leg syndrome. PRAMIPEXOLE DIHYDROC HLORIDE 0.125 MG ORAL TABS 145021 PRAMIPEXOLE DIHYDROCHLORIDE Inactive MIRTAZAPINE 15 MG ORAL TABS 1/2 tab by mouth at bedtime. MIRTAZAPINE 15 MG ORAL TABS 555568 MIRTAZAPINE Inactive DIFLUCAN 100 MG TAB 1 tablet by mouth daily X 3 DAYS 2 DIFLUCAN 100 MG TAB 420012 FLUCONAZOLE Inactive DIFLUCAN 100 MG TABS 1 tablet by mouth every other day for 2 dos es DIFLUCAN 100 MG TABS 766071 FLUCONAZOLE Inactive CEFTIN 250 MG TAB 1 tablet twice daily x 7 days 11/19 CEFTIN 250 MG TAB 475384 CEFUROXIME AXETIL Inactive CYMBALTA 30 MG CPEP 1 cap by mouth daily with 60mg 201 05/09/11 CYMBALTA 30 MG CPEP 634432 DULOXETINE HCL Inactive CYMBALTA 60 MG CPEP Take 1 tablet by mouth daily 05/13 CYMBALTA 60 MG CPEP 505220 DULOXETINE HCL Inactive FOSAMAX 70 MG TABS 1 po qweek. Take 30min prio r to first food/drink. Avoid lying down x 1 hour. FOSAMAX 70 MG TABS 496087 A LENDRONATE SODIUM Inactive DIFLUCAN 100 MG TAB 1 tablet by mouth daily DIFLUCAN 100 MG TAB 510023 FLUCONAZOLE Inactive BACTRIM DS 800-160 MG TAB 1 tab by mouth twice daily 2 BACTRIM DS 800-160 MG TAB 19830105 TRIMETHOPRIM-SULFAMETHOXAZOLE Inac tive ZITHROMAX 250 MG TAB 2 po today, then 1 po q days 2-5 ZITHROMAX 250 MG TAB 042688 AZITHROMYCIN Inactive BACTRIM DS 800-160 MG TAB [...] ... - Chemistry sodium, serum 144 mmol/L 502-585 6449/06/14 carbon dioxide, venous blood 29.4 mmol/L 21.0-32 .0 potassium, serum 4.4 mmol/L 3.5-5.2 chloride, serum 108 mmol/L 98-107 blood glucose 100 mg/dL 65-110 urea nitrogen, blood 9 mg/dL 7-18 creatinine, serum 0.67 mg/dL 0.55-1.30 alanine aminotransferase (SGPT), serum 24 U/L 12-78 aspartate aminotransferase (SGOT), serum 15 U/L 15-37 calcium, serum 9.3 mg/dL 8.5-10.1 bilirubin, serum, total 0.50 mg/dL 0.00-1.00 cholesterol, serum 268 mg/dL 392-582 0261/06/14 triglyceride, serum, fasting 126 mg/dL 30-200 HDL [...] mg/dL Encounters Code Encounter Date Provider Facility CPT-37639 Level 4 Est. Patient 13:56:54 CDT Tesfaye pearson MD [facility] CPT-02125 Level 4 Est. Patient 13:24:25 CDT Stephanie MERCADO [facility] CPT-79718 Level 4 Est. Patient 09:14:56 CDT Tesfaye pearson MD [facility] CPT-70529 Level 4 Est. Patient 18:40:25 LIAISON ENGINEER Tesfaye pearson MD [facility] CPT-93075 Level 4 Est. Patient 18:13:07 LIAISON ENGINEER Tesfaye pearson MD [facility]-58239 Level 3 Est. Patient 10:46:32 CDT Rj cotto DO [facility]-51209 Level 4 Est. Patient 20:19:25 CDT Tesfaye pearson MD [facility]-01705 Level 3 Est. Patient 09:07:31 CDT Tesfaye pearson MD [facility]-90082 Level 4 Est. Patient 13:12:56 CDT Tesfaye pearson MD [facility]-34952 Level 4 Est. Patient 21:24:55 LIAISON ENGINEER Tesfaye pearson MD [facility]-51117 Level 3 Est. Patient 13:45:04 LIAISON ENGINEER Tesfaye pearson MD [facility] CPT-61567 Level 4 Est. Patient 13:50:45 CDT Tesfaye pearson MD [facility] CPT-06658 Level 3 Est. Patient 10:16:10 CDT Tesfaye pearson MD [facility] CPT-66245 Level 3 Est. Patient 16:36:07 LIAISON ENGINEER Kayla jameson MD [facility]-16571 Level 4 Est. Patient 16:00:14 LIAISON ENGINEER Tesfaye pearson MD [facility]-29576 Level 4 Est. Patient 11:02:24 LIAISON ENGINEER Tesfaye pearson MD [facility]-56457 Level 3 Est. Patient 20:21:43 LIAISON ENGINEER Kayla jameson MD [facility]-48461 Level 3 Est. Patient 13:27:28 LIAISON ENGINEER Kayla jameson MD [facility]-12145 Level 4 Est. Patient 15:57:17 LIAISON ENGINEER Tesfaye pearson MD [facility] CPT-26005 Level 3 New Patient 13:25:47 CDT Tesfaye kidd MD [facility] CPT-91359 Level 3 New Patient 17:22:21 CDT J John angel MD [facility] Procedures Code Procedure Name Date Entry Date Standard Desc ription CPT-25419 Bone Density - XRAY USE ONLY 11:43:58 CDT 2 CPT-16329 Bone Density - XRAY USE ONLY 10:05:16 CDT 2 CPT-02118 Prv Med New Pt 40-64 yrs 18:19:25 CDT 2016 CPT-02339 Foot, right, comp min 3V - XRAY USE ONLY 10:38:34 CDT CPT-G0439 Subsequent Annual Wellness Exam 13:55:04 CDT CPT-G0438 Initial Annual Wellness Exam 11:23:17 CD T CPT-J2930 Solu Medrol 125 mg (Methyl Prednisolone Sodium Succinate) 17:29:12 LIAISON ENGINEER CPT-76838 Abx/Therapy Injection 17:29:11 LIAISON ENGINEER CPT-J2930 Solu Medrol 125 mg (Methyl Prednisolone Sodium Succinate) 12:34:38 LIAISON ENGINEER CPT-J3420 Vitamin B12 1000mcg (Cyanocobalamin) 09:12:55 CDT CPT-J3420 Vitamin B12 1000mcg (Cyanocobalamin) 16:28:06 LIAISON ENGINEER CPT-63680 Venipuncture Draw Fee 08:39:53 CDT CPT-J3420 Vitamin B12 1000mcg (Cyanocobalamin) 08:46:22 CDT CPT-19175 Abx/Therapy Injection 08:46:22 CDT CPT-J3420 Vitamin B12 1000mcg (Cyanocobalamin) 08:41:26 CDT CPT-85270 Abx/Therapy Injection 08:41:26 CDT CPT-J3420 Vitamin B12 1000mcg (Cyanocobalamin) 08:57:15 CDT CPT-33890 Abx/Therapy Injection 08:57:15 CDT CPT-J3420 Vitamin B12 1000mcg (Cyanocobalamin) 10:59:03 CDT CPT-37644 Abx/Therapy Injection 10:59:03 CDT CPT-J3420 Vitamin B12 1000mcg (Cyanocobalamin) 15:05:39 CDT CPT-84998 Abx/Therapy Injection 15:05:39 CDT CPT-J3420 Vitamin B12 1000mcg (Cyanocobalamin) 13:50:45 CDT CPT-J3420 Vitamin B12 1000mcg (Cyanocobalamin) 08:48:55 CDT CPT-30636 Abx/Therapy Injection 08:48:55 CDT CPT-J3420 Vitamin B12 1000mcg (Cyanocobalamin) 09:14:54 CDT CPT-50550 Abx/Therapy Injection 09:14:54 CDT CPT-J3420 Vitamin B12 1000mcg (Cyanocobalamin) 09:06:06 CDT CPT-19040 Abx/Therapy Injection 09:06:06 CDT CPT-J3420 Vitamin B12 1000mcg (Cyanocobalamin) 09:49:14 CDT CPT-75594 Abx/Therapy Injection 09:49:14 CDT CPT-J3420 Vitamin B12 1000mcg (Cyanocobalamin) 09:10:30 LIAISON ENGINEER CPT-65457 Abx/Therapy Injection 09:10:30 LIAISON ENGINEER CPT-J3420 Vitamin B12 1000mcg (Cyanocobalamin) 09:11:07 LIAISON ENGINEER CPT-59048 Abx/Therapy Injection 09:11:07 LIAISON ENGINEER CPT-J3420 Vitamin B12 1000mcg (Cyanocobalamin) 09:57:03 LIAISON ENGINEER CPT-47516 Abx/Therapy Injection 09:57:03 LIAISON ENGINEER CPT-J3420 Vitamin B12 1000mcg (Cyanocobalamin) 09:23:21 LIAISON ENGINEER CPT-82574 Abx/Therapy Injection 09:23:21 LIAISON ENGINEER CPT-72175 Urine Dip (Floor Use Only) 20:21:44 LIAISON ENGINEER 201 02/12/11 CPT-79299 UA Dip Auto (Floor Use Only) 10:04:39 LIAISON ENGINEER 2 CPT-70569 Urine Dip (Floor Use Only) 13:27:28 LIAISON ENGINEER 201 02/12/01 CPT-78318 Bladder Scan 13:27:28 LIAISON ENGINEER CPT-49887 Abd single AP View 14:30:51 LIAISON ENGINEER CPT-OV Office Visit 10:15:43 CDT CPT-82966 Urine Dip (Floor Use Only) 17:22:21 CDT 201 02/09/02 CPT-42776 Bladder Scan 17:22:21 CDT
--- OUTSIDE RECORDS SUMMARY | 2020-05-05 12:36 | XMS REPORT | Clinical Summary ---
Author Author Talon, Jeri Wood Organization [facility] Address Unknown Phone Unavailable Allergies, Adverse Reactions, [...] then 1 po q days 2-5 AZITHROMYCIN 11640427785 No Longer Active Tesfaye Sherman MD Acti ve BACTRIM DS 800-160 MG TAB 1 tab by mouth twice daily 2 TRIMETHOPRIM-SULFAMETHOXAZOLE 61416091082 No Longer Active Tesfaye Sherman MD Active VITAMIN D3 2000 UNIT TABS 1 daily, for vitamin D deficiency CHOLECALCIFEROL 34007497488 Active Tesfaye Sherman MD Activ e PRELIEF 340 (65-50) MG (CA-P) ORAL TABS CALCIUM GLYCEROPHOSPHATE 31915844785 Active Tesfaye Sherman MD Active [facility] NIACIN FLUSH FREE 400-100 MG CAPS 1 daily NIACIN-INOSITOL 03001160464 Active Kayla Cooper MD Active DIFLUCAN 150 MG TABS 1 qd FLUCONAZOLE 16722 195332 No Longer Active Kayla Cooper MD Active FLUTICASONE PROPIONATE 50 MCG/ACT SUSP 1 spray each nostril twice daily FLUTICASONE PROPIONATE 25625440954 Active Tesfaye armenta MD Active LOVASTATIN 20 MG TABS Take 1 tablet by mouth daily LOVASTATIN 53567634420 No Longer Active Tesfaye Sherman MD Active MELOXICAM 7.5 MG TABS 1 tablet by mouth daily M ELOXICAM 30058662810 No Longer Active Tesfaye Sherman MD Active GABAPENTIN 300 MG CAPS Take two tablets by mouth every evening GABAPENTIN 73762600675 No Longer Active Edith Burch MD Active TRIMETHOPRIM 100 MG TABS 1/2 qd TRIMETHOPRIM 5679912 3001 Active Kayla Cooper MD Active TIZANIDINE HCL 2 MG TABS take one tablet by mouth every day at bedtime at 9pm TIZANIDINE HCL 96680618554 Active Kayla Cooper MD Active OXYCODONE-ACETAMINOPHEN 5-325 MG TABS Take one tablet by mouth every 6 hours as needed. Max 12 tabs/day as needed OXYCODONE-ACETAMINOP HEN 70294889879 Active Tesfaye Sherman MD Active CYMBALTA 60 MG CPEP Take 1 tablet by mouth daily D ULOXETINE HCL 92759041001 Active Kayla Cooper MD Active CLONAZEPAM 0.5 MG TABS Take one tablet in the morning and 1.5 table t at 7pm CLONAZEPAM 89149024916 Active Kayla Cooper MD Active CETIRIZINE HCL 5 MG TABS Take 1 tablet by mouth daily CETIRIZINE HCL 38054024651 Active Kayla Cooper MD Active BACLOFEN 10 MG TABS Take one tablet by mouth three times a day BACLOFEN 19119421259 Active Kayla Cooper MD Active GABAPENTIN 300 MG CAPS Take two tablets by mouth every evening GABAPENTIN 300 MG CAPS 579192 GABAPENTIN Inactive MELOXICAM 7.5 MG TABS 1 tablet by mouth daily MELOXICAM 7.5 MG TABS 413975 MELOXICAM Inactive LOVASTATIN 20 MG TABS Take 1 tablet by mouth daily 201 02/12/20 LOVASTATIN 20 MG TABS 935063 LOVASTATIN Inactive DIFLUCAN 150 MG TABS 1 qd DIFLUCAN 150 MG T ABS 417120 FLUCONAZOLE Inactive BACTRIM DS 800-160 MG TAB 1 tab by mouth twice daily 2 BACTRIM DS 800-160 MG TAB TRIMETHOPRIM-SULFAMETHOXAZOLE Inac tive ZITHROMAX 250 MG TAB 2 po today, then 1 po q days 2-5 ZITHROMAX 250 MG TAB 1063868 AZITHROMYCIN Inactive Advance Directives Directive Description Start [...] Panel - Chemistry sodium, serum 138 mmol/L 409-226 0789/10/20 potassium, serum 4.5 mmol/L 3.5-5.2 chloride, serum [...] 0.90 mg/dL 0.00-1.00 cholesterol, serum 237 mg/dL 222-528 7959/10/20 triglyceride, serum, fasting 71 mg/dL 30-200 HDL [...] Panel - Chemistry cholesterol, serum 221 mg/dL 443-825 5946/01/23 triglyceride, serum, fasting 81 mg/dL 30-200 HDL [...] negative Encounters Code Encounter Date Provider Facility CPT-65226 Level 3 Est. Patient 10:16:10 CDT Tesfaye pearson MD [facility] CPT-86655 Level 3 Est. Patient 16:36:07 REFRIGERATOR CAR ICER Kayla jameson MD [facility] CPT-16303 Level 4 Est. Patient 16:00:14 REFRIGERATOR CAR ICER Tesfaye pearson MD [facility] CPT-44407 Level 4 Est. Patient 11:02:24 REFRIGERATOR CAR ICER Tesfaye pearson MD [facility] CPT-31225 Level 3 Est. Patient 20:21:43 REFRIGERATOR CAR ICER Kayla jameson MD [facility] CPT-74882 Level 3 Est. Patient 13:27:28 REFRIGERATOR CAR ICER Kayla jameson MD [facility] CPT-50741 Level 4 Est. Patient 15:57:17 REFRIGERATOR CAR ICER Tesfaye pearson MD [facility] CPT-53503 Level 3 New Patient 13:25:47 CDT Tesfaye kidd MD [facility] CPT-60136 Level 3 New Patient 17:22:21 CDT Kayla angel MD [facility] Procedures Code Procedure Name Date Entry Date Standard Desc ription CPT-J3420 Vitamin B12 1000mcg (Cyanocobalamin) 09:06:06 CDT CPT-69055 Abx/Therapy Injection 09:06:06 CDT CPT-J3420 Vitamin B12 1000mcg (Cyanocobalamin) 09:49:14 CDT CPT-76212 Abx/Therapy Injection 09:49:14 CDT CPT-J3420 Vitamin B12 1000mcg (Cyanocobalamin) 09:10:30 REFRIGERATOR CAR ICER CPT-31328 Abx/Therapy Injection 09:10:30 REFRIGERATOR CAR ICER CPT-J3420 Vitamin B12 1000mcg (Cyanocobalamin) 09:11:07 REFRIGERATOR CAR ICER CPT-73688 Abx/Therapy Injection 09:11:07 REFRIGERATOR CAR ICER CPT-J3420 Vitamin B12 1000mcg (Cyanocobalamin) 09:57:03 REFRIGERATOR CAR ICER CPT-10459 Abx/Therapy Injection 09:57:03 REFRIGERATOR CAR ICER CPT-J3420 Vitamin B12 1000mcg (Cyanocobalamin) 09:23:21 REFRIGERATOR CAR ICER CPT-26333 Abx/Therapy Injection 09:23:21 REFRIGERATOR CAR ICER CPT-67643 Urine Dip (Floor Use Only) 20:21:44 REFRIGERATOR CAR ICER 201 02/12/11 CPT-58645 UA Dip Auto (Floor Use Only) 10:04:39 REFRIGERATOR CAR ICER 2 CPT-69444 Urine Dip (Floor Use Only) 13:27:28 REFRIGERATOR CAR ICER 201 02/12/01 CPT-92692 Bladder Scan 13:27:28 REFRIGERATOR CAR ICER CPT-78463 Abd single AP View 14:30:51 REFRIGERATOR CAR ICER CPT-OV Office Visit 10:15:43 CDT CPT-25445 Urine Dip (Floor Use Only) 17:22:21 CDT 201 02/09/02 CPT-69236 Bladder Scan 17:22:21 CDT
--- OUTSIDE RECORDS SUMMARY | 2020-05-05 12:37 | XMS REPORT | Clinical Summary ---
Author Author Talon, Jeri Wood Organization [employer] Address Unknown Phone Unavailable Allergies, Adverse Reactions, [...] Other and unspecified hyperlipidemia ANXIETY 300.00 Active Tesfyae Sherman MD Anxiety state, unspecified Spasticity 781.0 [...] day as needed for dizziness MECLIZINE HCL 65949395529 Active Laurence Raida Active DIFLUCAN 100 MG ORAL TABLET 1 tablet by mouth daily FLUCONAZOLE 53475683899 Active Laurence Raida Active AMOXICILLIN 500 MG ORAL CAPSULE 1 cap by mouth three times a day AMOXICILLIN 68458081872 No Longer Active Laurence Raida Acti ve VENLAFAXINE HCL 75 MG ORAL TABLET 1 am 1/2 at noon VENLAFAXINE HCL 62247821438 Active Tesfaye Shemran MD Active DIFLUCAN 100 MG ORAL TABLET 1 tablet by mouth daily 20 19/08/26 FLUCONAZOLE 33203944832 No Longer Active Tesfaye Sherman MD Acti ve BACTRIM DS 800-160 MG ORAL TABLET 1 tab by mouth twice daily 201 05/10/28 TRIMETHOPRIM-SULFAMETHOXAZOLE 10978372079 No Longer Active Fer Dominguez Active FOSAMAX 70 MG ORAL TABLET 1 po qweek. Take 30min prio r to first food/drink. Avoid lying down x 1 hour. ALENDRONATE SODIUM 88312974 144 No Longer Active Laurence Dominguez Active REPHRESH PRO-B ORAL CAPSULE 1 tablet daily LACT OBACILLUS 80536388301 Active Edith Burch MD Active CYMBALTA 60 MG ORAL CAPSULE DELAYED RELEASE PARTICLES Take 1 tablet by mouth daily DULOXETINE HCL 68473989421 No Longer Active Edith Burch MD Active CYMBALTA 30 MG ORAL CAPSULE DELAYED RELEASE PARTICLES 1 cap by mouth daily with 60mg DULOXETINE HCL 47159241768 No Longer Active Jordan Burch MD Active FISH OIL 1000 MG ORAL CAPSULE DELAYED RELEASE 1 pill b y mouth daily for cholesterol OMEGA-3 FATTY ACIDS 31002793871 Active Cee Jaffe LPN Active RED YEAST RICE 600 MG ORAL CAPSULE 1 pill by mouth daily RED YEAST RICE EXTRACT 92601730724 Active Rosa Jaffe LPN Activ e DIFLUCAN 100 MG ORAL TABLET 1 tablet by mouth daily 19/03/05 FLUCONAZOLE 86398231703 No Longer Active Tesfaye Sherman MD Acti ve BACTRIM DS 800-160 MG ORAL TABLET 1 tab by mouth twice daily 201 05/06/28 TRIMETHOPRIM-SULFAMETHOXAZOLE 35464846917 No Longer Active Umer Sherman MD Active BACTRIM DS 800-160 MG ORAL TABLET 1 tab by mouth twice daily 201 05/04/15 TRIMETHOPRIM-SULFAMETHOXAZOLE 94604535568 No Longer Active Umer Sherman MD Active DIFLUCAN 150 MG ORAL TABLET 1 tablet by mouth daily 20 18/09/20 FLUCONAZOLE 44021856650 No Longer Active Tesfaye Sherman MD Acti ve BACTRIM DS 800-160 MG ORAL TABLET 1 tab by mouth twice daily 201 04/13/17 TRIMETHOPRIM-SULFAMETHOXAZOLE 05063184834 No Longer Active Umer Sherman MD Active ROPINIROLE HCL 0.25 MG ORAL TABLET 1 TAB PO Q HS ROPINIROLE HCL 43670936915 Active Tesfaye Sherman MD Active CEFTIN 250 MG ORAL TABLET 1 tablet twice daily x 7 days CEFUROXIME AXETIL 21314028264 No Longer Active Tesfaye Sherman MD Active DIFLUCAN 100 MG ORAL TABLET 1 tablet by mouth every other da y for 2 doses FLUCONAZOLE 30900922625 No Longer Active Tesfaye barron MD Active DIFLUCAN 100 MG ORAL TABLET 1 tablet by mouth daily X 3 DAYS 201 04/09/01 FLUCONAZOLE 31076725209 No Longer Active Rj Moss DO Ac tive MIRTAZAPINE 15 MG ORAL TABLET 1/2 tab by mouth at bedtime. 03/13 MIRTAZAPINE 56378362229 No Longer Active Tesfaye Sherman MD Active BACTRIM DS 800-160 MG ORAL TABLET 1 tab by mouth twice daily 201 04/09/01 TRIMETHOPRIM-SULFAMETHOXAZOLE 76680519184 No Longer Active Umer Sherman MD Active PRAMIPEXOLE DIHYDROCHLORIDE 0.125 MG ORAL TABLET take 1 tablet po qhs for restless leg syndrome. PRAMIPEXOLE DIHYDROCHLORI DE 16237645941 No Longer Active Tesfaye Sherman MD Active MAGNESIUM 400 MG ORAL TABLET 1 tab po daily MAGNE SIUM 97867438812 Active Chelsea Barba APRN Active SUDAFED 24 HOUR 240 MG ORAL TABLET EXTENDED RELEASE 24 HOUR 1 tab po daily PSEUDOEPHEDRINE HCL 29260373826 Active Chelsea NAPOLES RN Active CETIRIZINE HCL 5 MG ORAL TABLET Take 1 tablet by mouth daily CETIRIZINE HCL 30669685335 No Longer Active Chelsea Barba APRN Ac tive TRIMETHOPRIM 100 MG ORAL TABLET 1/2 qd TRIM ETHOPRIM 69039576982 No Longer Active Chelsea Barba APRN Active BACTRIM DS 800-160 MG ORAL TABLET 1 tab by mouth twice daily 201 04/04/11 TRIMETHOPRIM-SULFAMETHOXAZOLE 64151275440 No Longer Active Umer Sherman MD Active BACTRIM DS 800-160 MG ORAL TABLET 1 tab by mouth twice daily X 10 DAYS TRIMETHOPRIM-SULFAMETHOXAZOLE 39466535024 No Longer Active Tesfaye Sherman MD Active AMOXICILLIN 500 MG ORAL CAPSULE 1 cap by mouth three times a day AMOXICILLIN 90055051046 No Longer Active Adriana Arnulfo Active MECLIZINE HCL 25 MG ORAL TABLET one tab po qday prn dizziness 09/08 MECLIZINE HCL 80032079720 Active Tesfaye Sherman MD Active B-12 1000 MCG ORAL LOZENGE 1 tab po daily CYANO COBALAMIN 94955529419 Active Tesfaye Sherman MD Active VITAMIN D3 2000 UNIT ORAL TABLET 1 daily, for vitamin D deficien cy CHOLECALCIFEROL 20094845273 No Longer Active Tesfaye Sherman MD Active TIZANIDINE HCL 2 MG ORAL TABLET take 1-2 tablet by mo ut every day at bedtime at 9pm PRN TIZANIDINE HCL 48109662259 Active Tesfaye hewitt MD Active ZITHROMAX 250 MG ORAL TABLET 2 po today, then 1 po q days 2-5 20 15/02/10 AZITHROMYCIN 94878797654 No Longer Active Tesfaye Sherman MD Active BACTRIM DS 800-160 MG ORAL TABLET 1 tab by mouth twice daily 201 03/03/23 TRIMETHOPRIM-SULFAMETHOXAZOLE 16825137143 No Longer Active Umer Sherman MD Active PRELIEF 340 (65-50) MG (CA-P) ORAL TABLET CALCIUM GLYCEROPHOSPHATE 97833254190 Active Tesfaye Sherman MD Acti ve [facility] NIACIN FLUSH FREE 400-100 MG ORAL CAPSULE 1 daily NIACIN-INOSITOL 63832659859 Active Kayla Cooper MD Activ e DIFLUCAN 150 MG ORAL TABLET 1 qd FLUCONAZOL E 15970909579 No Longer Active Kayla Cooper MD Active FLUTICASONE PROPIONATE 50 MCG/ACT NASAL SUSPENSION 1 spray each nostril twice daily FLUTICASONE PROPIONATE 70322481689 Active Umer Sherman MD Active LOVASTATIN 20 MG ORAL TABLET Take 1 tablet by mouth daily LOVASTATIN 34943020509 No Longer Active Tesfaye Sherman MD Acti ve MELOXICAM 7.5 MG ORAL TABLET 1 tablet by mouth daily 2 MELOXICAM 71843419806 No Longer Active Tesfaye Sherman MD Acti ve GABAPENTIN 300 MG ORAL CAPSULE Take two tablets by mouth every e vening GABAPENTIN 80811321665 No Longer Active Edith Burch MD A ctive OXYCODONE-ACETAMINOPHEN 5-325 MG ORAL TABLET Take one tablet by mouth every 6 hours as needed. Max 12 tabs/day as needed OXYCO DONE-ACETAMINOPHEN 35037763012 Active Tesfaye Sherman MD Active CLONAZEPAM 0.5 MG ORAL TABLET Take one tablet in the m orning and 1.5 tablet at 7pm CLONAZEPAM 63226833403 Active Kayla Cooper MD Active BACLOFEN 10 MG ORAL TABLET Take one tablet by mouth three times a d ay BACLOFEN 89592864432 Active Kayla Cooper MD Active GABAPENTIN 300 MG ORAL CAPSULE Take two tablets by mouth every e vening GABAPENTIN 300 MG ORAL CAPSULE 436511 GABAPENTIN I nactive MELOXICAM 7.5 MG ORAL TABLET 1 tablet by mouth daily 2 MELOXICAM 7.5 MG ORAL TABLET 639146 MELOXICAM Inactive LOVASTATIN 20 MG ORAL TABLET Take 1 tablet by mouth daily LOVASTATIN 20 MG ORAL TABLET 136993 LOVASTATIN Inactive DIFLUCAN 150 MG ORAL TABLET 1 qd DIFLUCAN 150 MG ORAL TABLET 819134 FLUCONAZOLE Inactive VITAMIN D3 2000 UNIT ORAL TABLET 1 daily, for vitamin D deficien cy VITAMIN D3 2000 UNIT ORAL TABLET CHOLECALCIFEROL Inactive AMOXICILLIN 500 MG ORAL CAPSULE 1 cap by mouth three times a day AMOXICILLIN 500 MG ORAL CAPSULE 958854 AMOXICILLIN Inactive BACTRIM DS 800-160 MG ORAL TABLET 1 tab by mouth twice daily X 10 DAYS BACTRIM DS 800-160 MG ORAL TABLET 19830105 TRIMETHOPRIM-SULFAMETHOXAZOLE Inactive TRIMETHOPRIM 100 MG ORAL TABLET 1/2 qd 7 TRIMETHOPRIM 100 MG ORAL TABLET 19830102 TRIMETHOPRIM Inactive CETIRIZINE HCL 5 MG ORAL TABLET Take 1 tablet by mouth daily CETIRIZINE HCL 5 MG ORAL TABLET 0035721 CETIRIZINE HCL Inactive PRAMIPEXOLE DIHYDROCHLORIDE 0.125 MG ORAL TABLET take 1 tablet po qhs for restless leg syndrome. PRAMIPEXOLE DIHYD ROCHLORIDE 0.125 MG ORAL TABLET 171778 PRAMIPEXOLE DIHYDROCHLORIDE Inactive MIRTAZAPINE 15 MG ORAL TABLET 1/2 tab by mouth at bedtime. 03/13 MIRTAZAPINE 15 MG ORAL TABLET 700949 MIRTAZAPINE In active DIFLUCAN 100 MG ORAL TABLET 1 tablet by mouth daily X 3 DAYS 201 04/09/01 DIFLUCAN 100 MG ORAL TABLET 471719 FLUCONAZOLE Inac tive DIFLUCAN 100 MG ORAL TABLET 1 tablet by mouth every other da y for 2 doses DIFLUCAN 100 MG ORAL TABLET 023563 FLUCONAZOLE Inactive CEFTIN 250 MG ORAL TABLET 1 tablet twice daily x 7 days CEFTIN 250 MG ORAL TABLET 074721 CEFUROXIME AXETIL Inactive CYMBALTA 30 MG ORAL CAPSULE DELAYED RELEASE PARTICLES 1 cap by mouth daily with 60mg CYMBALTA 30 MG ORAL CAPSULE DELAYED RELEASE PARTICLES 595746 DULOXETINE HCL Inactive CYMBALTA 60 MG ORAL CAPSULE DELAYED RELEASE PARTICLES Take 1 tablet by mouth daily CYMBALTA 60 MG ORAL CAPSULE DELAYED RELEA SE PARTICLES 210994 DULOXETINE HCL Inactive FOSAMAX 70 MG ORAL TABLET 1 po qweek. Take 30min prio r to first food/drink. Avoid lying down x 1 hour. FOSAMAX 70 MG ORAL TA BLET 845791 ALENDRONATE SODIUM Inactive DIFLUCAN 100 MG ORAL TABLET 1 tablet by mouth daily 19/08/26 DIFLUCAN 100 MG ORAL TABLET 016123 FLUCONAZOLE Inactive BACTRIM DS 800-160 MG ORAL TABLET 1 tab by mouth twice daily 201 03/03/23 BACTRIM DS 800-160 MG ORAL TABLET 931957 TRIMETHOPRIM-SULFAMETHOXAZOLE Inactive ZITHROMAX 250 MG ORAL TABLET 2 po today, then 1 po q days 2-5 20 15/02/10 ZITHROMAX 250 MG ORAL TABLET 705047 AZITHROMYCIN Mayela ctive BACTRIM DS 800-160 MG [...] 20 19/03/05 DIFLUCAN 100 MG ORAL TABLET 793170 FLUCONAZOLE Inactive BACTRIM DS 800-160 MG ORAL TABLET 1 tab by mouth twice daily 201 05/10/28 BACTRIM DS 800-160 MG ORAL TABLET 19830105 TRIMETHOPRIM-SULFAMETHOXAZOLE Inactive AMOXICILLIN 500 MG ORAL CAPSULE 1 cap by mouth three times a day AMOXICILLIN 500 MG ORAL CAPSULE 422866 AMOXICILLIN Inactive Advance Directives Directive Description Start Date PERMISSION TO SHARE DISCUSSED WITH PATIENT -- NO DECISION MADE DURABLE POWER OF [facility] FOR [facility] Vital Signs Date Name Value [...] ... - Chemistry sodium, serum 144 mmol/L 172-994 2119/06/14 carbon dioxide, venous blood 29.4 mmol/L 21.0-32 .0 potassium, serum 4.4 mmol/L 3.5-5.2 chloride, serum 108 mmol/L 98-107 blood glucose 100 mg/dL 65-110 urea nitrogen, blood 9 mg/dL 7-18 creatinine, serum 0.67 mg/dL 0.55-1.30 alanine aminotransferase (SGPT), serum 24 U/L 12-78 aspartate aminotransferase (SGOT), serum 15 U/L 15-37 calcium, serum 9.3 mg/dL 8.5-10.1 bilirubin, serum, total 0.50 mg/dL 0.00-1.00 cholesterol, serum 268 mg/dL 640-691 9880/06/14 triglyceride, serum, fasting 126 mg/dL 30-200 HDL [...] mg/dL Encounters Code Encounter Date Provider Facility CPT-55668 Level 4 Est. 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 Patient 13:56:54 CDT Tesfaye pearson MD [facility] CPT-87429 Level 4 Est. Patient 13:24:25 CDT Stephanie MERCADO [facility] CPT-05453 Level 4 Est. Patient 09:14:56 CDT Tesfaye pearson MD [facility] CPT-54698 Level 4 Est. 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 Patient 10:46:32 CDT Rj octto DO [facility] CPT-23474 Level 4 Est. Patient 20:19:25 CDT Tesfaye pearson MD [facility] CPT-73098 Level 3 Est. Patient 09:07:31 CDT Tesfaye pearson MD [facility]-35583 Level 4 Est. Patient 13:12:56 CDT Tesfaye pearson MD [facility]-73173 Level 4 Est. Patient 21:24:55 EXECUTIVE KITCHEN MANAGER Tesfaye pearson MD [facility]-56013 Level 3 Est. Patient 13:45:04 EXECUTIVE KITCHEN MANAGER Tesfaye pearson MD [facility] CPT-72304 Level 4 Est. Patient 13:50:45 CDT Tesfaye pearson MD [facility]-79636 Level 3 Est. Patient 10:16:10 CDT Tesfaye pearson MD [facility]-78540 Level 3 Est. Patient 16:36:07 EXECUTIVE KITCHEN MANAGER Kayla jameson MD [facility]-97225 Level 4 Est. Patient 16:00:14 EXECUTIVE KITCHEN MANAGER Tesfaye pearson MD [facility]-51003 Level 4 Est. Patient 11:02:24 EXECUTIVE KITCHEN MANAGER Tesfaye pearson MD [facility]-40655 Level 3 Est. Patient 20:21:43 EXECUTIVE KITCHEN MANAGER Kayla jameson MD [facility]-88579 Level 3 Est. Patient 13:27:28 EXECUTIVE KITCHEN MANAGER Kayla jameson MD [facility]-54427 Level 4 Est. Patient 15:57:17 EXECUTIVE KITCHEN MANAGER Tesfaye pearson MD [facility] CPT-65148 Level 3 New Patient 13:25:47 CDT Tesfaye kidd MD [facility] CPT-65084 Level 3 New Patient 17:22:21 CDT Kayla angel MD [facility] Procedures Code Procedure Name Date Entry Date Standard Desc ription CPT-84518 Bone Density - XRAY USE ONLY 11:43:58 CDT 2 CPT-56372 Bone Density - XRAY USE ONLY 10:05:16 CDT 2 CPT-45456 Prv Med New Pt 40-64 yrs 18:19:25 CDT 2016 CPT-84679 Foot, right, comp min 3V - XRAY USE ONLY 10:38:34 CDT CPT-G0439 Subsequent Annual Wellness Exam 13:55:04 CDT CPT-G0438 Initial Annual Wellness Exam 11:23:17 CD T CPT-J2930 Solu Medrol 125 mg (Methyl Prednisolone Sodium Succinate) 17:29:12 EXECUTIVE KITCHEN MANAGER CPT-65266 Abx/Therapy Injection 17:29:11 EXECUTIVE KITCHEN MANAGER CPT-J2930 Solu Medrol 125 mg (Methyl Prednisolone Sodium Succinate) 12:34:38 EXECUTIVE KITCHEN MANAGER CPT-J3420 Vitamin B12 1000mcg (Cyanocobalamin) 09:12:55 CDT CPT-J3420 Vitamin B12 1000mcg (Cyanocobalamin) 16:28:06 EXECUTIVE KITCHEN MANAGER CPT-02878 Venipuncture Draw Fee 08:39:53 CDT CPT-J3420 Vitamin B12 1000mcg (Cyanocobalamin) 08:46:22 CDT CPT-89356 Abx/Therapy Injection 08:46:22 CDT CPT-J3420 Vitamin B12 1000mcg (Cyanocobalamin) 08:41:26 CDT CPT-42837 Abx/Therapy Injection 08:41:26 CDT CPT-J3420 Vitamin B12 1000mcg (Cyanocobalamin) 08:57:15 CDT CPT-80962 Abx/Therapy Injection 08:57:15 CDT CPT-J3420 Vitamin B12 1000mcg (Cyanocobalamin) 10:59:03 CDT CPT-48351 Abx/Therapy Injection 10:59:03 CDT CPT-J3420 Vitamin B12 1000mcg (Cyanocobalamin) 15:05:39 CDT CPT-22986 Abx/Therapy Injection 15:05:39 CDT CPT-J3420 Vitamin B12 1000mcg (Cyanocobalamin) 13:50:45 CDT CPT-J3420 Vitamin B12 1000mcg (Cyanocobalamin) 08:48:55 CDT CPT-13927 Abx/Therapy Injection 08:48:55 CDT CPT-J3420 Vitamin B12 1000mcg (Cyanocobalamin) 09:14:54 CDT CPT-35809 Abx/Therapy Injection 09:14:54 CDT CPT-J3420 Vitamin B12 1000mcg (Cyanocobalamin) 09:06:06 CDT CPT-61513 Abx/Therapy Injection 09:06:06 CDT CPT-J3420 Vitamin B12 1000mcg (Cyanocobalamin) 09:49:14 CDT CPT-06834 Abx/Therapy Injection 09:49:14 CDT CPT-J3420 Vitamin B12 1000mcg (Cyanocobalamin) 09:10:30 EXECUTIVE KITCHEN MANAGER CPT-74498 Abx/Therapy Injection 09:10:30 EXECUTIVE KITCHEN MANAGER CPT-J3420 Vitamin B12 1000mcg (Cyanocobalamin) 09:11:07 EXECUTIVE KITCHEN MANAGER CPT-36620 Abx/Therapy Injection 09:11:07 EXECUTIVE KITCHEN MANAGER CPT-J3420 Vitamin B12 1000mcg (Cyanocobalamin) 09:57:03 EXECUTIVE KITCHEN MANAGER CPT-92118 Abx/Therapy Injection 09:57:03 EXECUTIVE KITCHEN MANAGER CPT-J3420 Vitamin B12 1000mcg (Cyanocobalamin) 09:23:21 EXECUTIVE KITCHEN MANAGER CPT-39461 Abx/Therapy Injection 09:23:21 EXECUTIVE KITCHEN MANAGER CPT-20362 Urine Dip (Floor Use Only) 20:21:44 EXECUTIVE KITCHEN MANAGER 201 02/12/11 CPT-52124 UA Dip Auto (Floor Use Only) 10:04:39 EXECUTIVE KITCHEN MANAGER 2 CPT-20236 Urine Dip (Floor Use Only) 13:27:28 EXECUTIVE KITCHEN MANAGER 201 02/12/01 CPT-90285 Bladder Scan 13:27:28 EXECUTIVE KITCHEN MANAGER CPT-93603 Abd single AP View 14:30:51 EXECUTIVE KITCHEN MANAGER CPT-OV Office Visit 10:15:43 CDT CPT-61154 Urine Dip (Floor Use Only) 17:22:21 CDT 201 02/09/02 CPT-32265 Bladder Scan 17:22:21 CDT
--- OUTSIDE RECORDS SUMMARY | 2020-05-05 12:37 | XMS REPORT | Clinical Summary ---
Author Author Jeri Hanley Organization [employer] Address Unknown Phone Unavailable Allergies, Adverse Reactions, [...] tab by mouth twice daily 2 TRIMETHOPRIM-SULFAMETHOXAZOLE [id number] No Longer Active Tesfaye Sherman MD Active DIFLUCAN 150 MG TAB 1 tablet by mouth daily FLU CONAZOLE 88035226762 No Longer Active Tesfaye Sherman MD Active BACTRIM DS 800-160 MG TAB 1 tab by mouth twice daily 2 TRIMETHOPRIM-SULFAMETHOXAZOLE 82631481335 No Longer Active Tesfaye Sherman MD Active ROPINIROLE HCL 0.25 MG ORAL TABS 1 TAB PO Q HS ROPINIROLE HCL 95627414756 Active Tesfaye Sherman MD Active CYMBALTA 30 MG CPEP 1 cap by mouth daily with 60mg DULOXETINE HCL 07799668089 Active Tesfaye Sherman MD Active CEFTIN 250 MG TAB 1 tablet twice daily x 7 days 11/19 CEFUROXIME AXETIL 81007048329 No Longer Active Tesfaye Sherman MD Acti ve DIFLUCAN 100 MG TABS 1 tablet by mouth every other day for 2 dos es FLUCONAZOLE 01022311866 No Longer Active Tesfaye Sherman MD Active DIFLUCAN 100 MG TAB 1 tablet by mouth daily X 3 DAYS 2 FLUCONAZOLE 21693948140 No Longer Active Rj Moss DO Active MIRTAZAPINE 15 MG ORAL TABS 1/2 tab by mouth at bedtime. MIRTAZAPINE 25277772331 No Longer Active Tesfaye Sherman MD Acti ve BACTRIM DS 800-160 MG TAB 1 tab by mouth twice daily 2 TRIMETHOPRIM-SULFAMETHOXAZOLE 48470295015 No Longer Active Tesfaye Sherman MD Active PRAMIPEXOLE DIHYDROCHLORIDE 0.125 MG ORAL TABS take 1 tablet po qhs for restless leg syndrome. PRAMIPEXOLE DIHYDROCHLORIDE 39591871026 No Longer Active Tesfaye Sherman MD Active MAGNESIUM 400 MG ORAL TABS 1 tab po daily MAGNESI UM 05273942726 Active Chelsea Barba APRN Active SUDAFED 24 HOUR 240 MG ORAL [id number] 1 tab po daily PSEUDOEPHEDRINE HCL 84518344819 Active Chelsea Barba APRN A ctive CETIRIZINE HCL 5 MG TABS Take 1 tablet by mouth daily CETIRIZINE HCL 17116357057 No Longer Active Chelsea Barba APRN Acti ve TRIMETHOPRIM 100 MG TABS 1/2 qd TRIMETHOPRIM 90182314745 No Longer Active Chelsea Barba APRN Active BACTRIM DS 800-160 MG TAB 1 tab by mouth twice daily 2 TRIMETHOPRIM-SULFAMETHOXAZOLE 73242547206 No Longer Active Tesfaye Sherman MD Active BACTRIM DS 800-160 MG TAB 1 tab by mouth twice daily X 10 DAYS 2 TRIMETHOPRIM-SULFAMETHOXAZOLE 62003476341 No Longer Active Umer Sherman MD Active AMOXICILLIN 500 MG CAPS 1 cap by mouth three times a day AMOXICILLIN 22576706581 No Longer Active Adriana Arredondo Active MECLIZINE HCL 25 MG TAB one tab po qday prn dizziness MECLIZINE HCL 72746515579 Active Tesfaye Sherman MD Active B-12 1000 MCG ORAL LOZG 1 tab po daily CYANOCOBAL STANTON 73042892258 Active Tesfaye Sherman MD Active VITAMIN D3 2000 UNIT TABS 1 daily, for vitamin D deficiency 2014 CHOLECALCIFEROL 28942878890 No Longer Active Tesfaye Sherman MD Active TIZANIDINE HCL 2 MG TABS take 1-2 tablet by mouth ev at bedtime at 9pm PRN TIZANIDINE HCL 85293038557 Active Tesfaye Owusu Active ZITHROMAX 250 MG TAB 2 po today, then 1 po q days 2-5 AZITHROMYCIN 74505838880 No Longer Active Tesfaye Sherman MD Acti ve BACTRIM DS 800-160 MG TAB 1 tab by mouth twice daily 2 TRIMETHOPRIM-SULFAMETHOXAZOLE 81686625549 No Longer Active Tesfaye Sherman MD Active PRELIEF 340 (65-50) MG (CA-P) ORAL TABS CALCIUM GLYCEROPHOSPHATE 37045706921 Active Tesfaye Sherman MD Active [facility] NIACIN FLUSH FREE 400-100 MG CAPS 1 daily NIACIN-INOSITOL 40753374092 Active Kayla Cooper MD Active DIFLUCAN 150 MG TABS 1 qd FLUCONAZOLE 55959 492196 No Longer Active Kayla Cooper MD Active FLUTICASONE PROPIONATE 50 MCG/ACT SUSP 1 spray each nostril twice daily FLUTICASONE PROPIONATE 89691711083 Active Tesfaye armenta MD Active LOVASTATIN 20 MG TABS Take 1 tablet by mouth daily LOVASTATIN 64942227280 No Longer Active Tesfaye Sherman MD Active MELOXICAM 7.5 MG TABS 1 tablet by mouth daily M ELOXICAM 76974187512 No Longer Active Tesfaye Sherman MD Active GABAPENTIN 300 MG CAPS Take two tablets by mouth every evening GABAPENTIN 17248057175 No Longer Active Edith Burch MD Active OXYCODONE-ACETAMINOPHEN 5-325 MG TABS Take one tablet by mouth every 6 hours as needed. Max 12 tabs/day as needed OXYCODONE-ACETAMINOP HEN 84711847315 Active Tesfaye Sherman MD Active CYMBALTA 60 MG CPEP Take 1 tablet by mouth daily D ULOXETINE HCL 39312695117 Active Kayla Cooper MD Active CLONAZEPAM 0.5 MG TABS Take one tablet in the morning and 1.5 table t at 7pm CLONAZEPAM 73887710928 Active Kayla Cooper MD Active BACLOFEN 10 MG TABS Take one tablet by mouth three times a day BACLOFEN 41679984650 Active Kayla Cooper MD Active GABAPENTIN 300 MG CAPS Take two tablets by mouth every evening GABAPENTIN 300 MG CAPS 199729 GABAPENTIN Inactive MELOXICAM 7.5 MG TABS 1 tablet by mouth daily MELOXICAM 7.5 MG TABS 016147 MELOXICAM Inactive LOVASTATIN 20 MG TABS Take 1 tablet by mouth daily 201 02/12/20 LOVASTATIN 20 MG TABS 819952 LOVASTATIN Inactive DIFLUCAN 150 MG TABS 1 qd DIFLUCAN 150 MG T ABS 717992 FLUCONAZOLE Inactive VITAMIN D3 2000 UNIT TABS 1 daily, for vitamin D deficiency 2014 VITAMIN D3 2000 UNIT TABS CHOLECALCIFEROL Inacti ve AMOXICILLIN 500 MG CAPS 1 cap by mouth three times a day AMOXICILLIN 500 MG CAPS 156351 AMOXICILLIN Inactive BACTRIM DS 800-160 MG TAB 1 tab by mouth twice daily X 10 DAYS 2 BACTRIM DS 800-160 MG TAB 920348 TRIMETHOPRIM-SULFAMETH OXAZOLE Inactive TRIMETHOPRIM 100 MG TABS 1/2 qd TRIMETHOPRI M 100 MG TABS 880454 TRIMETHOPRIM Inactive CETIRIZINE HCL 5 MG TABS Take 1 tablet by mouth daily CETIRIZINE HCL 5 MG TABS 3468369 CETIRIZINE HCL Inactive PRAMIPEXOLE DIHYDROCHLORIDE 0.125 MG ORAL TABS take 1 tablet po qhs for restless leg syndrome. PRAMIPEXOLE DIHYDROC HLORIDE 0.125 MG ORAL TABS 111540 PRAMIPEXOLE DIHYDROCHLORIDE Inactive MIRTAZAPINE 15 MG ORAL TABS 1/2 tab by mouth at bedtime. MIRTAZAPINE 15 MG ORAL TABS 183605 MIRTAZAPINE Inactive DIFLUCAN 100 MG TAB 1 tablet by mouth daily X 3 DAYS 2 DIFLUCAN 100 MG TAB 683912 FLUCONAZOLE Inactive DIFLUCAN 100 MG TABS 1 tablet by mouth every other day for 2 dos es DIFLUCAN 100 MG TABS 735723 FLUCONAZOLE Inactive CEFTIN 250 MG TAB 1 tablet twice daily x 7 days 11/19 CEFTIN 250 MG TAB 463189 CEFUROXIME AXETIL Inactive BACTRIM DS 800-160 MG TAB 1 tab by mouth twice daily 2 BACTRIM DS 800-160 MG TAB 407146 TRIMETHOPRIM-SULFAMETHOXAZOLE Inac tive ZITHROMAX 250 MG TAB 2 po today, then 1 po q days 2-5 ZITHROMAX 250 MG TAB 6081084 AZITHROMYCIN Inactive BACTRIM DS 800-160 MG TAB [...] mg/dL Encounters Code Encounter Date Provider Facility CPT-70012 Level 4 Est. Patient 18:40:25 [employer] Tesfaye pearson MD [facility] CPT-82530 Level 4 Est. Patient 18:13:07 [employer] Tesfaye pearson MD [facility] CPT-87351 Level 3 Est. Patient 10:46:32 CDT Rj cotto DO [facility] CPT-97391 Level 4 Est. Patient 20:19:25 CDT Tesfaye pearson MD [facility] CPT-26887 Level 3 Est. Patient 09:07:31 CDT [facility] Level 4 Est. Patient 13:12:56 CDT Tesfaye pearson MD [facility]-96506 Level 4 Est. Patient 21:24:55 [employer] Tesfaye pearson MD [facility]-08980 Level 3 Est. Patient 13:45:04 [employer] Tesfaye pearson MD [facility] CPT-81762 Level 4 Est. Patient 13:50:45 CDT Tesfaye pearson MD [facility] CPT-66392 Level 3 Est. Patient 10:16:10 CDT Tesfaye pearson MD [facility]-04713 Level 3 Est. Patient 16:36:07 [employer] Kayla jameson MD [facility]-57591 Level 4 Est. Patient 16:00:14 [employer] Tesfaye perason MD [facility]-07748 Level 4 Est. Patient 11:02:24 [employer] Tesfaye pearson MD [facility] CPT-89435 Level 3 Est. Patient 20:21:43 [employer] Kayla jameson MD [facility]-52566 Level 3 Est. Patient 13:27:28 [employer] Kayla jameson MD [facility]-70443 Level 4 Est. Patient 15:57:17 [employer] Tesfaye pearson MD [facility] CPT-84817 Level 3 New Patient 13:25:47 CDT Tesfaye kidd MD [facility] CPT-82794 Level 3 New Patient 17:22:21 CDT Kayla angel MD [facility] Procedures Code Procedure Name Date Entry Date Standard Desc ription CPT-G0438 Initial Annual Wellness Exam 11:23:17 CD T CPT-J2930 Solu Medrol 125 mg (Methyl Prednisolone Sodium Succinate) 17:29:12 [employer] CPT-41765 Abx/Therapy Injection 17:29:11 [employer] CPT-J2930 Solu Medrol 125 mg (Methyl Prednisolone Sodium Succinate) 12:34:38 [employer] CPT-J3420 Vitamin B12 1000mcg (Cyanocobalamin) 09:12:55 CDT CPT-J3420 Vitamin B12 1000mcg (Cyanocobalamin) 16:28:06 [employer] CPT-12120 Venipuncture Draw Fee 08:39:53 CDT CPT-J3420 Vitamin B12 1000mcg (Cyanocobalamin) 08:46:22 CDT CPT-69568 Abx/Therapy Injection 08:46:22 CDT CPT-J3420 Vitamin B12 1000mcg (Cyanocobalamin) 08:41:26 CDT CPT-32091 Abx/Therapy Injection 08:41:26 CDT CPT-J3420 Vitamin B12 1000mcg (Cyanocobalamin) 08:57:15 CDT CPT-85108 Abx/Therapy Injection 08:57:15 CDT CPT-J3420 Vitamin B12 1000mcg (Cyanocobalamin) 10:59:03 CDT CPT-92961 Abx/Therapy Injection 10:59:03 CDT CPT-J3420 Vitamin B12 1000mcg (Cyanocobalamin) 15:05:39 CDT CPT-72864 Abx/Therapy Injection 15:05:39 CDT CPT-J3420 Vitamin B12 1000mcg (Cyanocobalamin) 13:50:45 CDT CPT-J3420 Vitamin B12 1000mcg (Cyanocobalamin) 08:48:55 CDT CPT-43121 Abx/Therapy Injection 08:48:55 CDT CPT-J3420 Vitamin B12 1000mcg (Cyanocobalamin) 09:14:54 CDT CPT-77081 Abx/Therapy Injection 09:14:54 CDT CPT-J3420 Vitamin B12 1000mcg (Cyanocobalamin) 09:06:06 CDT CPT-44308 Abx/Therapy Injection 09:06:06 CDT CPT-J3420 Vitamin B12 1000mcg (Cyanocobalamin) 09:49:14 CDT CPT-03151 Abx/Therapy Injection 09:49:14 CDT CPT-J3420 Vitamin B12 1000mcg (Cyanocobalamin) 09:10:30 [employer] CPT-82794 Abx/Therapy Injection 09:10:30 [employer] CPT-J3420 Vitamin B12 1000mcg (Cyanocobalamin) 09:11:07 [employer] CPT-56841 Abx/Therapy Injection 09:11:07 [employer] CPT-J3420 Vitamin B12 1000mcg (Cyanocobalamin) 09:57:03 [employer] CPT-93961 Abx/Therapy Injection 09:57:03 [employer] CPT-J3420 Vitamin B12 1000mcg (Cyanocobalamin) 09:23:21 [employer] CPT-95376 Abx/Therapy Injection 09:23:21 [employer] CPT-06246 Urine Dip (Floor Use Only) 20:21:44 [employer] 201 02/12/11 CPT-45207 UA Dip Auto (Floor Use Only) 10:04:39 [employer] 2 CPT-05911 Urine Dip (Floor Use Only) 13:27:28 [employer] 201 02/12/01 CPT-17398 Bladder Scan 13:27:28 [employer] CPT-29018 Abd single AP View 14:30:51 [employer] CPT-OV Office Visit 10:15:43 CDT CPT-21557 Urine Dip (Floor Use Only) 17:22:21 CDT 201 02/09/02 CPT-90545 Bladder Scan 17:22:21 CDT
--- OUTSIDE RECORDS SUMMARY | 2020-05-05 12:37 | XMS REPORT | Clinical Summary ---
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 Use sparingly OXYCODONE-ACETAMINOPHEN 25467099802 Active Tesfaye Sherman MD Active PREDNISONE 20 MG ORAL TABLET 1 tab twice daily for 3 d ay, then one daily for three days PREDNISONE 08177909889 No Longer Active Tesfaye Sherman MD Active PROAIR HFA 108 (90 BASE) MCG/ACT INHALATION AEROSOL SO LUTION 1 puff every 6 hours as needed ALBUTEROL SULFATE 42594992928 Active [place] nda Raida Active MECLIZINE HCL 25 MG ORAL TABLET one 4 times a day as needed for dizziness MECLIZINE HCL 17876504682 Active Laurence Dominguez Active DIFLUCAN 100 MG ORAL TABLET 1 tablet by mouth daily FLUCONAZOLE 99196687541 Active Laurence Dominguez Active AMOXICILLIN 500 MG ORAL CAPSULE 1 cap by mouth three times a day AMOXICILLIN 22931503296 No Longer Active Laurence Dominguez Acti ve VENLAFAXINE HCL 75 MG ORAL TABLET 1 am 1/2 at noon VENLAFAXINE HCL 67011704147 Active Tesfaye Sherman MD Active DIFLUCAN 100 MG ORAL TABLET 1 tablet by mouth daily 20 19/08/26 FLUCONAZOLE 39201907154 No Longer Active Tesfaye Sherman MD Acti ve BACTRIM DS 800-160 MG ORAL TABLET 1 tab by mouth twice daily 201 05/10/28 TRIMETHOPRIM-SULFAMETHOXAZOLE 38000243334 No Longer Active Fer Dominguez Active FOSAMAX 70 MG ORAL TABLET 1 po qweek. Take 30min prio r to first food/drink. Avoid lying down x 1 hour. ALENDRONATE SODIUM 85935143 144 No Longer Active Laurence Dominguez Active REPHRESH PRO-B ORAL CAPSULE 1 tablet daily LACT OBACILLUS 31490451028 Active Edith Burch MD Active CYMBALTA 60 MG ORAL CAPSULE DELAYED RELEASE PARTICLES Take 1 tablet by mouth daily DULOXETINE HCL 38621802000 No Longer Active Edith Burch MD Active CYMBALTA 30 MG ORAL CAPSULE DELAYED RELEASE PARTICLES 1 cap by mouth daily with 60mg DULOXETINE HCL 98487845489 No Longer Active Jordan Burch MD Active FISH OIL 1000 MG ORAL CAPSULE DELAYED RELEASE 1 pill b y mouth daily for cholesterol OMEGA-3 FATTY ACIDS 23354424689 Active Cee aJffe LPN Active RED YEAST RICE 600 MG ORAL CAPSULE 1 pill by mouth daily RED YEAST RICE EXTRACT 19259085778 Active Rosa Jaffe LPN Activ e DIFLUCAN 100 MG ORAL TABLET 1 tablet by mouth daily 20 19/03/05 FLUCONAZOLE 60817388896 No Longer Active Tesfaye Sherman MD Acti ve BACTRIM DS 800-160 MG ORAL TABLET 1 tab by mouth twice daily 201 05/06/28 TRIMETHOPRIM-SULFAMETHOXAZOLE 87566816957 No Longer Active Umer Sherman MD Active BACTRIM DS 800-160 MG ORAL TABLET 1 tab by mouth twice daily 201 05/04/15 TRIMETHOPRIM-SULFAMETHOXAZOLE 36587188500 No Longer Active Umer Sherman MD Active DIFLUCAN 150 MG ORAL TABLET 1 tablet by mouth daily 20 18/09/20 FLUCONAZOLE 32834066508 No Longer Active Tesfaye Sherman MD Acti ve BACTRIM DS 800-160 MG ORAL TABLET 1 tab by mouth twice daily 201 04/13/17 TRIMETHOPRIM-SULFAMETHOXAZOLE 05138987999 No Longer Active Umer Sherman MD Active ROPINIROLE HCL 0.25 MG ORAL TABLET 1 TAB PO Q HS ROPINIROLE HCL 66366745994 Active Tesfaye Sherman MD Active CEFTIN 250 MG ORAL TABLET 1 tablet twice daily x 7 days CEFUROXIME AXETIL 04649234355 No Longer Active Tesfaye Sherman MD Active DIFLUCAN 100 MG ORAL TABLET 1 tablet by mouth every other da y for 2 doses FLUCONAZOLE 52613212284 No Longer Active Tesfaye barron MD Active DIFLUCAN 100 MG ORAL TABLET 1 tablet by mouth daily X 3 DAYS 201 04/09/01 FLUCONAZOLE 05698446021 No Longer Active Rj Lyons tidragan MIRTAZAPINE 15 MG ORAL TABLET 1/2 tab by mouth at bedtime. 03/13 MIRTAZAPINE 44068785774 No Longer Active Tesfaye Sherman MD Active BACTRIM DS 800-160 MG ORAL TABLET 1 tab by mouth twice daily 201 04/09/01 TRIMETHOPRIM-SULFAMETHOXAZOLE 51013863425 No Longer Active Umer Sherman MD Active PRAMIPEXOLE DIHYDROCHLORIDE 0.125 MG ORAL TABLET take 1 tablet po qhs for restless leg syndrome. PRAMIPEXOLE DIHYDROCHLORI DE 32151014571 No Longer Active Tesfaye Sherman MD Active MAGNESIUM 400 MG ORAL TABLET 1 tab po daily [place] GONSALVESUM 22900216574 Active Chelsea Cardenas APRN Active SUDAFED 24 HOUR 240 MG ORAL TABLET EXTENDED RELEASE 24 HOUR 1 tab po daily PSEUDOEPHEDRINE HCL 45624137496 Active Chelsea Cardenas APRN Active CETIRIZINE HCL 5 MG ORAL TABLET Take 1 tablet by mouth daily CETIRIZINE HCL 84624401377 No Longer Active Chelsea Cardenas APRN Activ e TRIMETHOPRIM 100 MG ORAL TABLET 1/2 qd TRIM ETHOPRIM 42482674487 No Longer Active Chelsea Cardenas APRN Active BACTRIM DS 800-160 MG ORAL TABLET 1 tab by mouth twice daily 201 04/04/11 TRIMETHOPRIM-SULFAMETHOXAZOLE 64920738225 No Longer Active D patricia Sherman MD Active BACTRIM DS 800-160 MG ORAL TABLET 1 tab by mouth twice daily X 10 DAYS TRIMETHOPRIM-SULFAMETHOXAZOLE 68833773121 No Longer Active Tesfaye Sherman MD Active AMOXICILLIN 500 MG ORAL CAPSULE 1 cap by mouth three times a day AMOXICILLIN 66764187590 No Longer Active Adriana Arredondo Active MECLIZINE HCL 25 MG ORAL TABLET one tab po qday prn dizziness 09/08 MECLIZINE HCL 46499096038 Active Tesfaye Sherman MD Active B-12 1000 MCG ORAL LOZENGE 1 tab po daily CYANO COBALAMIN 74288809428 Active Tesfaye Sherman MD Active VITAMIN D3 2000 UNIT ORAL TABLET 1 daily, for vitamin D deficien cy CHOLECALCIFEROL 11377485758 No Longer Active Tesfaye Sherman MD Active TIZANIDINE HCL 2 MG ORAL TABLET take 1-2 tablet by mo uth every day at bedtime at 9pm PRN TIZANIDINE HCL 66094177140 Active Tesfaye hewitt MD Active ZITHROMAX 250 MG ORAL TABLET 2 po today, then 1 po q days 2-5 20 15/02/10 AZITHROMYCIN 19983168434 No Longer Active Tesfaye Sherman MD Active BACTRIM DS 800-160 MG ORAL TABLET 1 tab by mouth twice daily 201 03/03/23 TRIMETHOPRIM-SULFAMETHOXAZOLE 50024830860 No Longer Active Umre Sherman MD Active PRELIEF 340 (65-50) MG (CA-P) ORAL TABLET CALCIUM GLYCEROPHOSPHATE 95716565217 Active Tesfaye Sherman MD Acti ve [facility] NIACIN FLUSH FREE 400-100 MG ORAL CAPSULE 1 daily NIACIN-INOSITOL 42997113733 Active Kayla Cooper MD Activ e DIFLUCAN 150 MG ORAL TABLET 1 qd FLUCONAZOL E 06753070354 No Longer Active Kayla Cooper MD Active FLUTICASONE PROPIONATE 50 MCG/ACT NASAL SUSPENSION 1 spray each nostril twice daily FLUTICASONE PROPIONATE 40879841226 Active Umer Sherman MD Active LOVASTATIN 20 MG ORAL TABLET Take 1 tablet by mouth daily LOVASTATIN 98559051455 No Longer Active Tesfaye Sherman MD Acti ve MELOXICAM 7.5 MG ORAL TABLET 1 tablet by mouth daily 2 MELOXICAM 47761892536 No Longer Active Tesfaye Sherman MD Acti ve GABAPENTIN 300 MG ORAL CAPSULE Take two tablets by mouth every e vening GABAPENTIN 58185827152 No Longer Active Edith Burch MD A ctive CLONAZEPAM 0.5 MG ORAL TABLET Take one tablet in the m orning and 1.5 tablet at 7pm CLONAZEPAM 46115579153 Active Kayla Cooper MD Active BACLOFEN 10 MG ORAL TABLET Take one tablet by mouth three times a d ay BACLOFEN 47087764710 Active Kayla Cooper MD Active GABAPENTIN 300 MG ORAL CAPSULE Take two tablets by mouth every e vening GABAPENTIN 300 MG ORAL CAPSULE 483876 GABAPENTIN I nactive MELOXICAM 7.5 MG ORAL TABLET 1 tablet by mouth daily 2 MELOXICAM 7.5 MG ORAL TABLET 157379 MELOXICAM Inactive LOVASTATIN 20 MG ORAL TABLET Take 1 tablet by mouth daily LOVASTATIN 20 MG ORAL TABLET 995742 LOVASTATIN Inactive DIFLUCAN 150 MG ORAL TABLET 1 qd DIFLUCAN 150 MG ORAL TABLET 505749 FLUCONAZOLE Inactive VITAMIN D3 2000 UNIT ORAL TABLET 1 daily, for vitamin D deficien cy VITAMIN D3 2000 UNIT ORAL TABLET CHOLECALCIFEROL Inactive AMOXICILLIN 500 MG ORAL CAPSULE 1 cap by mouth three times a day AMOXICILLIN 500 MG ORAL CAPSULE 595278 AMOXICILLIN Inactive BACTRIM DS 800-160 MG ORAL TABLET 1 tab by mouth twice daily X 10 DAYS BACTRIM DS 800-160 MG ORAL TABLET 059317 TRIMETHOPRIM-SULFAMETHOXAZOLE Inactive TRIMETHOPRIM 100 MG ORAL TABLET 1/2 qd 7 TRIMETHOPRIM 100 MG ORAL TABLET 715511 TRIMETHOPRIM Inactive CETIRIZINE HCL 5 MG ORAL TABLET Take 1 tablet by mouth daily CETIRIZINE HCL 5 MG ORAL TABLET 1695031 CETIRIZINE HCL Inactive PRAMIPEXOLE DIHYDROCHLORIDE 0.125 MG ORAL TABLET take 1 tablet po qhs for restless leg syndrome. PRAMIPEXOLE DIHYD ROCHLORIDE 0.125 MG ORAL TABLET 216262 PRAMIPEXOLE DIHYDROCHLORIDE Inactive MIRTAZAPINE 15 MG ORAL TABLET 1/2 tab by mouth at bedtime. 03/13 MIRTAZAPINE 15 MG ORAL TABLET 935318 MIRTAZAPINE In active DIFLUCAN 100 MG ORAL TABLET 1 tablet by mouth daily X 3 DAYS 201 04/09/01 DIFLUCAN 100 MG ORAL TABLET 982248 FLUCONAZOLE Inac tive DIFLUCAN 100 MG ORAL TABLET 1 tablet by mouth every other da y for 2 doses DIFLUCAN 100 MG ORAL TABLET 436865 FLUCONAZOLE Inactive CEFTIN 250 MG ORAL TABLET 1 tablet twice daily x 7 days CEFTIN 250 MG ORAL TABLET 255210 CEFUROXIME AXETIL Inactive CYMBALTA 30 MG ORAL CAPSULE DELAYED RELEASE PARTICLES 1 cap by mouth daily with 60mg CYMBALTA 30 MG ORAL CAPSULE DELAYED RELEASE PARTICLES 217532 DULOXETINE HCL Inactive CYMBALTA 60 MG ORAL CAPSULE DELAYED RELEASE PARTICLES Take 1 tablet by mouth daily CYMBALTA 60 MG ORAL CAPSULE DELAYED RELEA SE PARTICLES 105798 DULOXETINE HCL Inactive FOSAMAX 70 MG ORAL TABLET 1 po qweek. Take 30min prio r to first food/drink. Avoid lying down x 1 hour. FOSAMAX 70 MG ORAL TA BLET 725926 ALENDRONATE SODIUM Inactive DIFLUCAN 100 MG ORAL TABLET 1 tablet by mouth daily 19/08/26 DIFLUCAN 100 MG ORAL TABLET 441205 FLUCONAZOLE Inactive PREDNISONE 20 MG ORAL TABLET 1 tab twice daily for 3 d ay, then one daily for three days PREDNISONE 20 MG ORAL TABLET 920065 PREDNIS ONE Inactive BACTRIM DS 800-160 MG ORAL TABLET 1 tab by mouth twice daily 201 03/03/23 BACTRIM DS 800-160 MG ORAL TABLET 19830105 TRIMETHOPRIM-SULFAMETHOXAZOLE Inactive ZITHROMAX 250 MG ORAL TABLET 2 po today, then 1 po q days 2-5 20 15/02/10 ZITHROMAX 250 MG ORAL TABLET 223349 AZITHROMYCIN Mayela ctive BACTRIM DS 800-160 MG [...] 05/06/28 BACTRIM DS 800-160 MG ORAL TABLET 541575 TRIMETHOPRIM-SULFAMETHOXAZOLE Inactive DIFLUCAN 100 MG ORAL TABLET 1 tablet by mouth daily 19/03/05 DIFLUCAN 100 MG ORAL TABLET 431686 FLUCONAZOLE Inactive BACTRIM DS 800-160 MG ORAL TABLET 1 tab by mouth twice daily 201 05/10/28 BACTRIM DS 800-160 MG ORAL TABLET 926543 TRIMETHOPRIM-SULFAMETHOXAZOLE Inactive AMOXICILLIN 500 MG ORAL CAPSULE 1 cap by mouth three times a day AMOXICILLIN 500 MG ORAL CAPSULE 092113 AMOXICILLIN Inactive Advance Directives Directive Description Start Date PERMISSION TO SHARE DISCUSSED WITH PATIENT -- NO DECISION MADE DURABLE POWER OF SUPERINTENDENT LAUNDRY FOR HEALTHCARE Vital Signs Date Name Value [...] ... - Chemistry sodium, serum 144 mmol/L 223-574 2175/06/14 carbon dioxide, venous blood 29.4 mmol/L 21.0-32 .0 potassium, serum 4.4 mmol/L 3.5-5.2 chloride, serum 108 mmol/L 98-107 blood glucose 100 mg/dL 65-110 urea nitrogen, blood 9 mg/dL 7-18 creatinine, serum 0.67 mg/dL 0.55-1.30 alanine aminotransferase (SGPT), serum 24 U/L 12-78 aspartate aminotransferase (SGOT), serum 15 U/L 15-37 calcium, serum 9.3 mg/dL 8.5-10.1 bilirubin, serum, total 0.50 mg/dL 0.00-1.00 cholesterol, serum 268 mg/dL 476-036 7846/06/14 triglyceride, serum, fasting 126 mg/dL 30-200 HDL cholesterol, serum 51 mg/dL 32-96 LDL cholesterol, serum 192 mg/dL 0-130 TSH 0.83 m[iU]/mL 0.36-3.74 thyroxine, serum, free 1.03 ng/dL 0.76-1.46 uric acid, serum 3.2 mg/dL 2.6-7.2 Lab Report: Comp. Metabolic Panel, [facility] - Chemistry sodium, serum 141 mmol/L 785-520 0244/01/26 carbon dioxide, venous blood 29.5 mmol/L 21.0-32 [...] mg/dL Encounters Code Encounter Date Provider Facility CPT-89164 Level 4 Est. Patient 14:44:33 MAC ARTIST Tesfaye pearson MD [facility] CPT-04829 Level 4 Est. Patient 13:55:29 MAC ARTIST Tesfaye pearson MD [facility] CPT-66917 Level 4 Est. Patient 17:07:34 MAC ARTIST Tesfaye pearson MD [facility] CPT-32771 Level 4 Est. Patient 13:56:54 CDT Tesfaye pearson MD [facility] CPT-04258 Level 4 Est. Patient 13:24:25 CDT Chelsea sanz APRN [facility] CPT-62767 Level 4 Est. Patient 09:14:56 CDT Tesfaye pearson MD [facility] CPT-17842 Level 4 Est. Patient 18:40:25 MAC ARTIST Tesfaye pearson MD [facility] CPT-95035 Level 4 Est. Patient 18:13:07 MAC ARTIST Tesfaye pearson MD [facility] CPT-59220 Level 3 Est. Patient 10:46:32 CDT Rj cotto DO [facility] CPT-40495 Level 4 Est. Patient 20:19:25 CDT Tesfaye pearson MD [facility] CPT-36910 Level 3 Est. Patient 09:07:31 CDT Tesfaye pearson MD [facility] CPT-73222 Level 4 Est. Patient 13:12:56 CDT Tesfaye pearson MD [facility] CPT-66559 Level 4 Est. Patient 21:24:55 MAC ARTIST Tesfaye pearson MD [facility] CPT-60130 Level 3 Est. Patient 13:45:04 MAC ARTIST Tesfaye pearson MD [facility] CPT-79688 Level 4 Est. Patient 13:50:45 CDT Tesfaye pearson MD [facility] CPT-46163 Level 3 Est. Patient 10:16:10 CDT Tesfaye pearson MD [facility] CPT-69463 Level 3 Est. Patient 16:36:07 MAC ARTIST Kayla jameson MD [facility] CPT-03340 Level 4 Est. Patient 16:00:14 MAC ARTIST Tesfaye pearson MD [facility] CPT-08627 Level 4 Est. Patient 11:02:24 MAC ARTIST Tesfaye pearson MD [facility] CPT-76706 Level 3 Est. Patient 20:21:43 MAC ARTIST Kayla jameson MD [facility] CPT-11484 Level 3 Est. Patient 13:27:28 MAC ARTIST Kayla jameson MD [facility] CPT-91411 Level 4 Est. Patient 15:57:17 MAC ARTIST Tesfaye pearson MD [facility] CPT-38037 Level 3 New Patient 13:25:47 CDT Tesfaye kidd MD [facility] CPT-52767 Level 3 New Patient 17:22:21 CDT Kayal angel MD [facility] Procedures Code Procedure Name Date Entry Date Standard Desc ription CPT-74006 Bone Density - XRAY USE ONLY 11:43:58 CDT CPT-29074 Bone Density - XRAY USE ONLY 10:05:16 CDT 2 CPT-43945 Prv Med New Pt 40-64 yrs 18:19:25 CDT 2016 CPT-81202 Foot, right, comp min 3V - XRAY USE ONLY 10:38:34 CDT CPT-G0439 Subsequent Annual Wellness Exam 13:55:04 CDT CPT-G0438 Initial Annual Wellness Exam 11:23:17 CD T CPT-J2930 Solu Medrol 125 mg (Methyl Prednisolone Sodium Succinate) 17:29:12 MAC ARTIST CPT-89731 Abx/Therapy Injection 17:29:11 MAC ARTIST CPT-J2930 Solu Medrol 125 mg (Methyl Prednisolone Sodium Succinate) 12:34:38 MAC ARTIST CPT-J3420 Vitamin B12 1000mcg (Cyanocobalamin) 09:12:55 CDT CPT-J3420 Vitamin B12 1000mcg (Cyanocobalamin) 16:28:06 MAC ARTIST CPT-05213 Venipuncture Draw Fee 08:39:53 CDT CPT-J3420 Vitamin B12 1000mcg (Cyanocobalamin) 08:46:22 CDT CPT-06984 Abx/Therapy Injection 08:46:22 CDT CPT-J3420 Vitamin B12 1000mcg (Cyanocobalamin) 08:41:26 CDT CPT-43648 Abx/Therapy Injection 08:41:26 CDT CPT-J3420 Vitamin B12 1000mcg (Cyanocobalamin) 08:57:15 CDT CPT-02616 Abx/Therapy Injection 08:57:15 CDT CPT-J3420 Vitamin B12 1000mcg (Cyanocobalamin) 10:59:03 CDT CPT-13660 Abx/Therapy Injection 10:59:03 CDT CPT-J3420 Vitamin B12 1000mcg (Cyanocobalamin) 15:05:39 CDT CPT-73271 Abx/Therapy Injection 15:05:39 CDT CPT-J3420 Vitamin B12 1000mcg (Cyanocobalamin) 13:50:45 CDT CPT-J3420 Vitamin B12 1000mcg (Cyanocobalamin) 08:48:55 CDT CPT-33196 Abx/Therapy Injection 08:48:55 CDT CPT-J3420 Vitamin B12 1000mcg (Cyanocobalamin) 09:14:54 CDT CPT-81141 Abx/Therapy Injection 09:14:54 CDT CPT-J3420 Vitamin B12 1000mcg (Cyanocobalamin) 09:06:06 CDT CPT-83360 Abx/Therapy Injection 09:06:06 CDT CPT-J3420 Vitamin B12 1000mcg (Cyanocobalamin) 09:49:14 CDT CPT-06283 Abx/Therapy Injection 09:49:14 CDT CPT-J3420 Vitamin B12 1000mcg (Cyanocobalamin) 09:10:30 MAC ARTIST CPT-57798 Abx/Therapy Injection 09:10:30 MAC ARTIST CPT-J3420 Vitamin B12 1000mcg (Cyanocobalamin) 09:11:07 MAC ARTIST CPT-78921 Abx/Therapy Injection 09:11:07 MAC ARTIST CPT-J3420 Vitamin B12 1000mcg (Cyanocobalamin) 09:57:03 MAC ARTIST CPT-09811 Abx/Therapy Injection 09:57:03 MAC ARTIST CPT-J3420 Vitamin B12 1000mcg (Cyanocobalamin) 09:23:21 MAC ARTIST CPT-65077 Abx/Therapy Injection 09:23:21 MAC ARTIST CPT-18914 Urine Dip (Floor Use Only) 20:21:44 MAC ARTIST 201 02/12/11 CPT-93005 UA Dip Auto (Floor Use Only) 10:04:39 MAC ARTIST 2 CPT-62029 Urine Dip (Floor Use Only) 13:27:28 MAC ARTIST 201 02/12/01 CPT-47847 Bladder Scan 13:27:28 MAC ARTIST CPT-24497 Abd single AP View 14:30:51 MAC ARTIST CPT-OV Office Visit 10:15:43 CDT CPT-18084 Urine Dip (Floor Use Only) 17:22:21 CDT 201 02/09/02 CPT-24069 Bladder Scan 17:22:21 CDT
--- OUTSIDE RECORDS SUMMARY | 2020-05-05 12:38 | XMS REPORT | Clinical Summary ---
Author Author Jeri Hanley Organization [employer] Address Unknown Phone Unavailable Allergies, Adverse Reactions, [...] tab by mouth twice daily 2 TRIMETHOPRIM-SULFAMETHOXAZOLE 48174661540 No Longer Active Tesfaye Sherman MD Active DIFLUCAN 150 MG TAB 1 tablet by mouth daily FLU CONAZOLE 68398823661 No Longer Active Tesfaye Sherman MD Active BACTRIM DS 800-160 MG TAB 1 tab by mouth twice daily 2 TRIMETHOPRIM-SULFAMETHOXAZOLE 53176748850 No Longer Active Tesfaye Sherman MD Active ROPINIROLE HCL 0.25 MG ORAL TABS 1 TAB PO Q HS ROPINIROLE HCL 38617501676 Active Tesfaye Sherman MD Active CYMBALTA 30 MG CPEP 1 cap by mouth daily with 60mg DULOXETINE HCL 48439879476 Active Tesfaye Sherman MD Active CEFTIN 250 MG TAB 1 tablet twice daily x 7 days 11/19 CEFUROXIME AXETIL 39350818464 No Longer Active Tesfaye Sherman MD Acti ve DIFLUCAN 100 MG TABS 1 tablet by mouth every other day for 2 dos es FLUCONAZOLE 36970117105 No Longer Active Tesfaye Sherman MD Active DIFLUCAN 100 MG TAB 1 tablet by mouth daily X 3 DAYS 2 FLUCONAZOLE 06490390038 No Longer Active Rj Moss DO Active MIRTAZAPINE 15 MG ORAL TABS 1/2 tab by mouth at bedtime. MIRTAZAPINE 59708982725 No Longer Active Tesfaye Sherman MD Acti ve BACTRIM DS 800-160 MG TAB 1 tab by mouth twice daily 2 TRIMETHOPRIM-SULFAMETHOXAZOLE 56164955263 No Longer Active Tesfaye Sherman MD Active PRAMIPEXOLE DIHYDROCHLORIDE 0.125 MG ORAL TABS take 1 tablet po qhs for restless leg syndrome. PRAMIPEXOLE DIHYDROCHLORIDE 92327861080 No Longer Active Tesfaye Sherman MD Active MAGNESIUM 400 MG ORAL TABS 1 tab po daily MAGNESI UM 75678232668 Active Chelsea Barba APRN Active SUDAFED 24 HOUR 240 MG ORAL [id number] 1 tab po daily PSEUDOEPHEDRINE HCL 93237148783 Active Chelsea Barba APRN A ctive CETIRIZINE HCL 5 MG TABS Take 1 tablet by mouth daily CETIRIZINE HCL 66877680702 No Longer Active Chelsea Barba APRN Acti ve TRIMETHOPRIM 100 MG TABS 1/2 qd TRIMETHOPRIM 10698084032 No Longer Active Chelsea Barba APRN Active BACTRIM DS 800-160 MG TAB 1 tab by mouth twice daily 2 TRIMETHOPRIM-SULFAMETHOXAZOLE 50473692618 No Longer Active Tesfaye Sherman MD Active BACTRIM DS 800-160 MG TAB 1 tab by mouth twice daily X 10 DAYS 2 TRIMETHOPRIM-SULFAMETHOXAZOLE 83417233999 No Longer Active Umer Sherman MD Active AMOXICILLIN 500 MG CAPS 1 cap by mouth three times a day AMOXICILLIN 51473080170 No Longer Active Adriana Arredondo Active MECLIZINE HCL 25 MG TAB one tab po qday prn dizziness MECLIZINE HCL 80770996502 Active Tesfaye Sherman MD Active B-12 1000 MCG ORAL LOZG 1 tab po daily CYANOCOBAL STANTON 28450631245 Active Tesfaye Sherman MD Active VITAMIN D3 2000 UNIT TABS 1 daily, for vitamin D deficiency 2014 CHOLECALCIFEROL 19494713885 No Longer Active Tesfaye Sherman MD Active TIZANIDINE HCL 2 MG TABS take 1-2 tablet by mouth ev at bedtime at 9pm PRN TIZANIDINE HCL 59951628783 Active Tesfaye Owusu Active ZITHROMAX 250 MG TAB 2 po today, then 1 po q days 2-5 AZITHROMYCIN 30754285840 No Longer Active Tesfaye Sherman MD Acti ve BACTRIM DS 800-160 MG TAB 1 tab by mouth twice daily 2 TRIMETHOPRIM-SULFAMETHOXAZOLE 49220852855 No Longer Active Tesfaye Sherman MD Active PRELIEF 340 (65-50) MG (CA-P) ORAL TABS CALCIUM GLYCEROPHOSPHATE 36521898881 Active Tesfaye Sherman MD Active [facility] NIACIN FLUSH FREE 400-100 MG CAPS 1 daily NIACIN-INOSITOL 35674724718 Active Kayla Cooper MD Active DIFLUCAN 150 MG TABS 1 qd FLUCONAZOLE 76595 686195 No Longer Active Kayla Cooper MD Active FLUTICASONE PROPIONATE 50 MCG/ACT SUSP 1 spray each nostril twice daily FLUTICASONE PROPIONATE 68175562604 Active Tesfaye armenta MD Active LOVASTATIN 20 MG TABS Take 1 tablet by mouth daily LOVASTATIN 18953127835 No Longer Active Tesfaye Sherman MD Active MELOXICAM 7.5 MG TABS 1 tablet by mouth daily M ELOXICAM 87523696342 No Longer Active Tesfaye Sherman MD Active GABAPENTIN 300 MG CAPS Take two tablets by mouth every evening GABAPENTIN 08912139112 No Longer Active Edith Burch MD Active OXYCODONE-ACETAMINOPHEN 5-325 MG TABS Take one tablet by mouth every 6 hours as needed. Max 12 tabs/day as needed OXYCODONE-ACETAMINOP HEN 98343858989 Active Tesfaye Sherman MD Active CYMBALTA 60 MG CPEP Take 1 tablet by mouth daily D ULOXETINE HCL 66785963507 Active Kayla Cooper MD Active CLONAZEPAM 0.5 MG TABS Take one tablet in the morning and 1.5 table t at 7pm CLONAZEPAM 25578402225 Active Kayla Cooper MD Active BACLOFEN 10 MG TABS Take one tablet by mouth three times a day BACLOFEN 52906266053 Active Kayla Cooper MD Active GABAPENTIN 300 MG CAPS Take two tablets by mouth every evening GABAPENTIN 300 MG CAPS 100195 GABAPENTIN Inactive MELOXICAM 7.5 MG TABS 1 tablet by mouth daily MELOXICAM 7.5 MG TABS 838795 MELOXICAM Inactive LOVASTATIN 20 MG TABS Take 1 tablet by mouth daily 201 02/12/20 LOVASTATIN 20 MG TABS 243553 LOVASTATIN Inactive DIFLUCAN 150 MG TABS 1 qd DIFLUCAN 150 MG T ABS 371852 FLUCONAZOLE Inactive VITAMIN D3 2000 UNIT TABS 1 daily, for vitamin D deficiency 2014 VITAMIN D3 2000 UNIT TABS CHOLECALCIFEROL Inacti ve AMOXICILLIN 500 MG CAPS 1 cap by mouth three times a day AMOXICILLIN 500 MG CAPS 201853 AMOXICILLIN Inactive BACTRIM DS 800-160 MG TAB 1 tab by mouth twice daily X 10 DAYS 2 BACTRIM DS 800-160 MG TAB 249035 TRIMETHOPRIM-SULFAMETH OXAZOLE Inactive TRIMETHOPRIM 100 MG TABS 1/2 qd TRIMETHOPRI M 100 MG TABS 313642 TRIMETHOPRIM Inactive CETIRIZINE HCL 5 MG TABS Take 1 tablet by mouth daily CETIRIZINE HCL 5 MG TABS 2547968 CETIRIZINE HCL Inactive PRAMIPEXOLE DIHYDROCHLORIDE 0.125 MG ORAL TABS take 1 tablet po qhs for restless leg syndrome. PRAMIPEXOLE DIHYDROC HLORIDE 0.125 MG ORAL TABS 917075 PRAMIPEXOLE DIHYDROCHLORIDE Inactive MIRTAZAPINE 15 MG ORAL TABS 1/2 tab by mouth at bedtime. MIRTAZAPINE 15 MG ORAL TABS 873239 MIRTAZAPINE Inactive DIFLUCAN 100 MG TAB 1 tablet by mouth daily X 3 DAYS 2 DIFLUCAN 100 MG TAB 817646 FLUCONAZOLE Inactive DIFLUCAN 100 MG TABS 1 tablet by mouth every other day for 2 dos es DIFLUCAN 100 MG TABS 776440 FLUCONAZOLE Inactive CEFTIN 250 MG TAB 1 tablet twice daily x 7 days 11/19 CEFTIN 250 MG TAB 235061 CEFUROXIME AXETIL Inactive BACTRIM DS 800-160 MG TAB 1 tab by mouth twice daily 2 BACTRIM DS 800-160 MG TAB 202026 TRIMETHOPRIM-SULFAMETHOXAZOLE Inac tive ZITHROMAX 250 MG TAB 2 po today, then 1 po q days 2-5 ZITHROMAX 250 MG TAB 6973201 AZITHROMYCIN Inactive BACTRIM DS 800-160 MG TAB [...] mg/dL Encounters Code Encounter Date Provider Facility CPT-85335 Level 4 Est. Patient 18:40:25 GAS METER INSTALLER HELPER Tesfaye pearson MD [facility] CPT-19073 Level 4 Est. Patient 18:13:07 GAS METER INSTALLER HELPER Tesfaye pearson MD [facility] CPT-24270 Level 3 Est. Patient 10:46:32 CDT Rj cotto DO [facility] CPT-37732 Level 4 Est. Patient 20:19:25 CDT Tesfaye pearson MD [facility] CPT-43474 Level 3 Est. Patient 09:07:31 CDT Tesfaye pearson MD [facility] CPT-40939 Level 4 Est. Patient 13:12:56 CDT Tesfaye pearson MD [facility]-44122 Level 4 Est. Patient 21:24:55 GAS METER INSTALLER HELPER Tesfaye pearson MD [facility]-16605 Level 3 Est. Patient 13:45:04 GAS METER INSTALLER HELPER Tesfaye pearson MD [facility] CPT-45015 Level 4 Est. Patient 13:50:45 CDT eTsfaye pearson MD [facility] CPT-04765 Level 3 Est. Patient 10:16:10 CDT Tesfaye pearson MD [facility]-89739 Level 3 Est. Patient 16:36:07 GAS METER INSTALLER HELPER Kayla jameson MD [facility]-76442 Level 4 Est. Patient 16:00:14 GAS METER INSTALLER HELPER Tesfaye pearson MD [facility]-48054 Level 4 Est. Patient 11:02:24 GAS METER INSTALLER HELPER Tesfaye pearson MD [facility]-38052 Level 3 Est. Patient 20:21:43 GAS METER INSTALLER HELPER Kayla jameson MD [facility]-79393 Level 3 Est. Patient 13:27:28 GAS METER INSTALLER HELPER Kayla jameson MD [facility]-78215 Level 4 Est. Patient 15:57:17 GAS METER INSTALLER HELPER Tesfaye pearson MD [facility] CPT-35945 Level 3 New Patient 13:25:47 CDT Tesfaye kidd MD [facility] CPT-78587 Level 3 New Patient 17:22:21 CDT Kayla angel MD [facility] Procedures Code Procedure Name Date Entry Date Standard Desc ription CPT-G0438 Initial Annual Wellness Exam 11:23:17 CD T CPT-J2930 Solu Medrol 125 mg (Methyl Prednisolone Sodium Succinate) 17:29:12 GAS METER INSTALLER HELPER CPT-90039 Abx/Therapy Injection 17:29:11 GAS METER INSTALLER HELPER CPT-J2930 Solu Medrol 125 mg (Methyl Prednisolone Sodium Succinate) 12:34:38 GAS METER INSTALLER HELPER CPT-J3420 Vitamin B12 1000mcg (Cyanocobalamin) 09:12:55 CDT CPT-J3420 Vitamin B12 1000mcg (Cyanocobalamin) 16:28:06 GAS METER INSTALLER HELPER CPT-97870 Venipuncture Draw Fee 08:39:53 CDT CPT-J3420 Vitamin B12 1000mcg (Cyanocobalamin) 08:46:22 CDT CPT-35470 Abx/Therapy Injection 08:46:22 CDT CPT-J3420 Vitamin B12 1000mcg (Cyanocobalamin) 08:41:26 CDT CPT-90506 Abx/Therapy Injection 08:41:26 CDT CPT-J3420 Vitamin B12 1000mcg (Cyanocobalamin) 08:57:15 CDT CPT-89688 Abx/Therapy Injection 08:57:15 CDT CPT-J3420 Vitamin B12 1000mcg (Cyanocobalamin) 10:59:03 CDT CPT-60705 Abx/Therapy Injection 10:59:03 CDT CPT-J3420 Vitamin B12 1000mcg (Cyanocobalamin) 15:05:39 CDT CPT-39289 Abx/Therapy Injection 15:05:39 CDT CPT-J3420 Vitamin B12 1000mcg (Cyanocobalamin) 13:50:45 CDT CPT-J3420 Vitamin B12 1000mcg (Cyanocobalamin) 08:48:55 CDT CPT-90157 Abx/Therapy Injection 08:48:55 CDT CPT-J3420 Vitamin B12 1000mcg (Cyanocobalamin) 09:14:54 CDT CPT-18332 Abx/Therapy Injection 09:14:54 CDT CPT-J3420 Vitamin B12 1000mcg (Cyanocobalamin) 09:06:06 CDT CPT-27500 Abx/Therapy Injection 09:06:06 CDT CPT-J3420 Vitamin B12 1000mcg (Cyanocobalamin) 09:49:14 CDT CPT-59744 Abx/Therapy Injection 09:49:14 CDT CPT-J3420 Vitamin B12 1000mcg (Cyanocobalamin) 09:10:30 GAS METER INSTALLER HELPER CPT-24500 Abx/Therapy Injection 09:10:30 GAS METER INSTALLER HELPER CPT-J3420 Vitamin B12 1000mcg (Cyanocobalamin) 09:11:07 GAS METER INSTALLER HELPER CPT-70524 Abx/Therapy Injection 09:11:07 GAS METER INSTALLER HELPER CPT-J3420 Vitamin B12 1000mcg (Cyanocobalamin) 09:57:03 GAS METER INSTALLER HELPER CPT-14956 Abx/Therapy Injection 09:57:03 GAS METER INSTALLER HELPER CPT-J3420 Vitamin B12 1000mcg (Cyanocobalamin) 09:23:21 GAS METER INSTALLER HELPER CPT-64036 Abx/Therapy Injection 09:23:21 GAS METER INSTALLER HELPER CPT-32410 Urine Dip (Floor Use Only) 20:21:44 GAS METER INSTALLER HELPER 201 02/12/11 CPT-38980 UA Dip Auto (Floor Use Only) 10:04:39 GAS METER INSTALLER HELPER 2 CPT-87142 Urine Dip (Floor Use Only) 13:27:28 GAS METER INSTALLER HELPER 201 02/12/01 CPT-69572 Bladder Scan 13:27:28 GAS METER INSTALLER HELPER CPT-91453 Abd single AP View 14:30:51 GAS METER INSTALLER HELPER CPT-OV Office Visit 10:15:43 CDT CPT-87046 Urine Dip (Floor Use Only) 17:22:21 CDT 201 02/09/02 CPT-25404 Bladder Scan 17:22:21 CDT
--- OUTSIDE RECORDS SUMMARY | 2020-05-05 12:38 | XMS REPORT | Clinical Summary ---
Author Author Talon, Jeri Wood Organization [facility] Address Unknown Phone Unavailable Allergies, Adverse [...] daily, for vitamin D deficiency 2014 CHOLECALCIFEROL 22033971755 No Longer Active Tesfaye Sherman MD Active TIZANIDINE HCL 2 MG TABS take 1-2 tablet by mouth ev at bedtime at 9pm PRN TIZANIDINE HCL 10801834964 Active Tesfaye Owusu Active ZITHROMAX 250 MG TAB 2 po today, then 1 po q days 2-5 AZITHROMYCIN 51914468312 No Longer Active Tesfaye Sherman MD Acti ve BACTRIM DS 800-160 MG TAB 1 tab by mouth twice daily 2 TRIMETHOPRIM-SULFAMETHOXAZOLE 32078728910 No Longer Active Tesfaye Sherman MD Active PRELIEF 340 (65-50) MG (CA-P) ORAL TABS CALCIUM GLYCEROPHOSPHATE 28245457123 Active Tesfaye Sherman MD Active [facility] NIACIN FLUSH FREE 400-100 MG CAPS 1 daily NIACIN-INOSITOL 10547429903 Active Kayla Cooper MD Active DIFLUCAN 150 MG TABS 1 qd FLUCONAZOLE 12295 427307 No Longer Active Kayla Cooper MD Active FLUTICASONE PROPIONATE 50 MCG/ACT SUSP 1 spray each nostril twice daily FLUTICASONE PROPIONATE 39688550223 Active Tesfaye armenta MD Active LOVASTATIN 20 MG TABS Take 1 tablet by mouth daily LOVASTATIN 58486532306 No Longer Active Tesfaye Sherman MD Active MELOXICAM 7.5 MG TABS 1 tablet by mouth daily M ELOXICAM 44539890780 No Longer Active Tesfaye Sherman MD Active GABAPENTIN 300 MG CAPS Take two tablets by mouth every evening GABAPENTIN 55539826609 No Longer Active Edith Burch MD Active TRIMETHOPRIM 100 MG TABS 1/2 qd TRIMETHOPRIM 5162254 3001 Active Kayla Cooper MD Active OXYCODONE-ACETAMINOPHEN 5-325 MG TABS Take one tablet by mouth every 6 hours as needed. Max 12 tabs/day as needed OXYCODONE-ACETAMINOP HEN 06169982854 Active Tesfaye Sherman MD Active CYMBALTA 60 MG CPEP Take 1 tablet by mouth daily D ULOXETINE HCL 04240521258 Active Kayla Cooper MD Active CLONAZEPAM 0.5 MG TABS Take one tablet in the morning and 1.5 table t at 7pm CLONAZEPAM 67812014690 Active Kayla Cooper MD Active CETIRIZINE HCL 5 MG TABS Take 1 tablet by mouth daily CETIRIZINE HCL 79097912923 Active Kayla Cooper MD Active BACLOFEN 10 MG TABS Take one tablet by mouth three times a day BACLOFEN 34504639529 Active Kayla Cooper MD Active GABAPENTIN 300 MG CAPS Take two tablets by mouth every evening GABAPENTIN 300 MG CAPS 716459 GABAPENTIN Inactive MELOXICAM 7.5 MG TABS 1 tablet by mouth daily MELOXICAM 7.5 MG TABS 793459 MELOXICAM Inactive LOVASTATIN 20 MG TABS Take 1 tablet by mouth daily 201 02/12/20 LOVASTATIN 20 MG TABS 735072 LOVASTATIN Inactive DIFLUCAN 150 MG TABS 1 qd DIFLUCAN 150 MG T ABS 945629 FLUCONAZOLE Inactive VITAMIN D3 2000 UNIT TABS 1 daily, for vitamin D deficiency 2014 VITAMIN D3 2000 UNIT TABS CHOLECALCIFEROL Inacti ve BACTRIM DS 800-160 MG TAB 1 tab by mouth twice daily 2 BACTRIM DS 800-160 MG TAB TRIMETHOPRIM-SULFAMETHOXAZOLE Inac tive ZITHROMAX 250 MG TAB 2 po today, then 1 po q days 2-5 ZITHROMAX 250 MG TAB 9314849 AZITHROMYCIN Inactive Advance Directives Directive Description Start [...] Panel - Chemistry sodium, serum 138 mmol/L 830-007 7859/10/20 potassium, serum 4.5 mmol/L 3.5-5.2 chloride, serum [...] 0.90 mg/dL 0.00-1.00 cholesterol, serum 237 mg/dL 655-652 5447/10/20 triglyceride, serum, fasting 71 mg/dL 30-200 HDL [...] Panel - Chemistry cholesterol, serum 221 mg/dL 080-434 6060/01/23 triglyceride, serum, fasting 81 mg/dL 30-200 HDL [...] negative Encounters Code Encounter Date Provider Facility CPT-13526 Level 4 Est. Patient 13:50:45 CDT Tesfaye pearson MD [facility] CPT-83815 Level 3 Est. Patient 10:16:10 CDT Tesfaye pearson MD [facility] CPT-35306 Level 3 Est. Patient 16:36:07 PLANNING DIRECTOR Kayla jameson MD [facility]-04620 Level 4 Est. Patient 16:00:14 PLANNING DIRECTOR Tesfaye pearson MD [facility] CPT-17258 Level 4 Est. Patient 11:02:24 PLANNING DIRECTOR Tesfaye pearson MD [facility] CPT-84088 Level 3 Est. Patient 20:21:43 PLANNING DIRECTOR Kayla jameson MD [facility] CPT-18893 Level 3 Est. Patient 13:27:28 PLANNING DIRECTOR Kayla jameson MD [facility]-83449 Level 4 Est. Patient 15:57:17 PLANNING DIRECTOR Tesfaye pearson MD [facility] CPT-84560 Level 3 New Patient 13:25:47 CDT Tesfaye kidd MD [facility] CPT-55429 Level 3 New Patient 17:22:21 CDT Kayla angel MD [facility] Procedures Code Procedure Name Date Entry Date Standard Desc ription CPT-J3420 Vitamin B12 1000mcg (Cyanocobalamin) 15:05:39 CDT CPT-82361 Abx/Therapy Injection 15:05:39 CDT CPT-J3420 Vitamin B12 1000mcg (Cyanocobalamin) 13:50:45 CDT CPT-J3420 Vitamin B12 1000mcg (Cyanocobalamin) 08:48:55 CDT CPT-90304 Abx/Therapy Injection 08:48:55 CDT CPT-J3420 Vitamin B12 1000mcg (Cyanocobalamin) 09:14:54 CDT CPT-25564 Abx/Therapy Injection 09:14:54 CDT CPT-J3420 Vitamin B12 1000mcg (Cyanocobalamin) 09:06:06 CDT CPT-23848 Abx/Therapy Injection 09:06:06 CDT CPT-J3420 Vitamin B12 1000mcg (Cyanocobalamin) 09:49:14 CDT CPT-30204 Abx/Therapy Injection 09:49:14 CDT CPT-J3420 Vitamin B12 1000mcg (Cyanocobalamin) 09:10:30 PLANNING DIRECTOR CPT-65385 Abx/Therapy Injection 09:10:30 PLANNING DIRECTOR CPT-J3420 Vitamin B12 1000mcg (Cyanocobalamin) 09:11:07 PLANNING DIRECTOR CPT-71637 Abx/Therapy Injection 09:11:07 PLANNING DIRECTOR CPT-J3420 Vitamin B12 1000mcg (Cyanocobalamin) 09:57:03 PLANNING DIRECTOR CPT-38574 Abx/Therapy Injection 09:57:03 PLANNING DIRECTOR CPT-J3420 Vitamin B12 1000mcg (Cyanocobalamin) 09:23:21 PLANNING DIRECTOR CPT-11166 Abx/Therapy Injection 09:23:21 PLANNING DIRECTOR CPT-32037 Urine Dip (Floor Use Only) 20:21:44 PLANNING DIRECTOR 201 02/12/11 CPT-37895 UA Dip Auto (Floor Use Only) 10:04:39 PLANNING DIRECTOR 2 CPT-61082 Urine Dip (Floor Use Only) 13:27:28 PLANNING DIRECTOR 201 02/12/01 CPT-43572 Bladder Scan 13:27:28 PLANNING DIRECTOR CPT-57283 Abd single AP View 14:30:51 PLANNING DIRECTOR CPT-OV Office Visit 10:15:43 CDT CPT-30252 Urine Dip (Floor Use Only) 17:22:21 CDT 201 02/09/02 CPT-69901 Bladder Scan 17:22:21 CDT
--- OUTSIDE RECORDS SUMMARY | 2020-05-05 12:38 | XMS REPORT | Clinical Summary ---
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.9 Active Tesfyae armenta MD Unspecified causes of encephalitis, myelitis, [...] then 1 po q days 2-5 AZITHROMYCIN 44342192818 No Longer Active Tesfaye Sherman MD Acti ve BACTRIM DS 800-160 MG TAB 1 tab by mouth twice daily 2 TRIMETHOPRIM-SULFAMETHOXAZOLE 31207987918 No Longer Active Tesfaye Sherman MD Active VITAMIN D3 2000 UNIT TABS 1 daily, for vitamin D deficiency CHOLECALCIFEROL 11165525521 Active Tesfaye Sherman MD Activ e PRELIEF 340 (65-50) MG (CA-P) ORAL TABS CALCIUM GLYCEROPHOSPHATE 91454621245 Active Tesfaye Sherman MD Active [facility] NIACIN FLUSH FREE 400-100 MG CAPS 1 daily NIACIN-INOSITOL 65087766223 Active Kayla Cooper MD Active DIFLUCAN 150 MG TABS 1 qd FLUCONAZOLE 47370 918697 No Longer Active Kayla Cooper MD Active FLUTICASONE PROPIONATE 50 MCG/ACT SUSP 1 spray each nostril twice daily FLUTICASONE PROPIONATE 13371215816 Active Tesfaye armenta MD Active LOVASTATIN 20 MG TABS Take 1 tablet by mouth daily LOVASTATIN 27117829102 No Longer Active Tesfaye Sherman MD Active MELOXICAM 7.5 MG TABS 1 tablet by mouth daily M ELOXICAM 74232243956 No Longer Active Tesfaye Sherman MD Active GABAPENTIN 300 MG CAPS Take two tablets by mouth every evening GABAPENTIN 97698582479 No Longer Active Edith Burch MD Active TRIMETHOPRIM 100 MG TABS 1/2 qd TRIMETHOPRIM 6261338 3001 Active Kayla Cooper MD Active TIZANIDINE HCL 2 MG TABS take one tablet by mouth every day at bedtime at 9pm TIZANIDINE HCL 26121214576 Active Kayla Cooper MD Active OXYCODONE-ACETAMINOPHEN 5-325 MG TABS Take one tablet by mouth every 6 hours as needed. Max 12 tabs/day as needed OXYCODONE-ACETAMINOP HEN 75432160897 Active Tesfaye Sherman MD Active CYMBALTA 60 MG CPEP Take 1 tablet by mouth daily D ULOXETINE HCL 70572832569 Active Kayla Cooper MD Active CLONAZEPAM 0.5 MG TABS Take one tablet in the morning and 1.5 table t at 7pm CLONAZEPAM 25567877671 Active Kayla Cooper MD Active CETIRIZINE HCL 5 MG TABS Take 1 tablet by mouth daily CETIRIZINE HCL 22829637637 Active Kayla Cooper MD Active BACLOFEN 10 MG TABS Take one tablet by mouth three times a day BACLOFEN 44149771316 Active Kayla Cooper MD Active GABAPENTIN 300 MG CAPS Take two tablets by mouth every evening GABAPENTIN 300 MG CAPS 773878 GABAPENTIN Inactive MELOXICAM 7.5 MG TABS 1 tablet by mouth daily MELOXICAM 7.5 MG TABS 119773 MELOXICAM Inactive LOVASTATIN 20 MG TABS Take 1 tablet by mouth daily 201 02/12/20 LOVASTATIN 20 MG TABS 392185 LOVASTATIN Inactive DIFLUCAN 150 MG TABS 1 qd DIFLUCAN 150 MG T ABS 961056 FLUCONAZOLE Inactive BACTRIM DS 800-160 MG TAB 1 tab by mouth twice daily 2 BACTRIM DS 800-160 MG TAB TRIMETHOPRIM-SULFAMETHOXAZOLE Inac tive ZITHROMAX 250 MG TAB 2 po today, then 1 po q days 2-5 ZITHROMAX 250 MG TAB 1388480 AZITHROMYCIN Inactive Advance Directives Directive Description Start [...] Panel - Chemistry sodium, serum 138 mmol/L 391-081 5311/10/20 potassium, serum 4.5 mmol/L 3.5-5.2 chloride, serum [...] 0.90 mg/dL 0.00-1.00 cholesterol, serum 237 mg/dL 563-518 4652/10/20 triglyceride, serum, fasting 71 mg/dL 30-200 HDL [...] Panel - Chemistry cholesterol, serum 221 mg/dL 617-292 5255/01/23 triglyceride, serum, fasting 81 mg/dL 30-200 HDL [...] negative Encounters Code Encounter Date Provider Facility CPT-90814 Level 3 Est. Patient 10:16:10 CDT Tesfaye pearson MD [facility] CPT-38254 Level 3 Est. Patient 16:36:07 SONAR SUBSYSTEM EQUIPMENT OPERATOR Kayla jameson MD [facility] CPT-47652 Level 4 Est. Patient 16:00:14 SONAR SUBSYSTEM EQUIPMENT OPERATOR Tesfaye pearson MD [facility] CPT-75402 Level 4 Est. Patient 11:02:24 SONAR SUBSYSTEM EQUIPMENT OPERATOR Tesfaye pearson MD [facility] CPT-34915 Level 3 Est. Patient 20:21:43 SONAR SUBSYSTEM EQUIPMENT OPERATOR Kayla jameson MD [facility] CPT-08896 Level 3 Est. Patient 13:27:28 SONAR SUBSYSTEM EQUIPMENT OPERATOR Kayla jameson MD [facility] CPT-20749 Level 4 Est. Patient 15:57:17 SONAR SUBSYSTEM EQUIPMENT OPERATOR Tesfaye pearson MD [facility] CPT-63365 Level 3 New Patient 13:25:47 CDT Tesfaye kidd MD [facility] CPT-76045 Level 3 New Patient 17:22:21 CDT Kayla angel MD [facility] Procedures Code Procedure Name Date Entry Date Standard Desc ription CPT-J3420 Vitamin B12 1000mcg (Cyanocobalamin) 09:14:54 CDT CPT-31788 Abx/Therapy Injection 09:14:54 CDT CPT-J3420 Vitamin B12 1000mcg (Cyanocobalamin) 09:06:06 CDT CPT-94392 Abx/Therapy Injection 09:06:06 CDT CPT-J3420 Vitamin B12 1000mcg (Cyanocobalamin) 09:49:14 CDT CPT-77340 Abx/Therapy Injection 09:49:14 CDT CPT-J3420 Vitamin B12 1000mcg (Cyanocobalamin) 09:10:30 SONAR SUBSYSTEM EQUIPMENT OPERATOR CPT-17057 Abx/Therapy Injection 09:10:30 SONAR SUBSYSTEM EQUIPMENT OPERATOR CPT-J3420 Vitamin B12 1000mcg (Cyanocobalamin) 09:11:07 SONAR SUBSYSTEM EQUIPMENT OPERATOR CPT-93387 Abx/Therapy Injection 09:11:07 SONAR SUBSYSTEM EQUIPMENT OPERATOR CPT-J3420 Vitamin B12 1000mcg (Cyanocobalamin) 09:57:03 SONAR SUBSYSTEM EQUIPMENT OPERATOR CPT-27540 Abx/Therapy Injection 09:57:03 SONAR SUBSYSTEM EQUIPMENT OPERATOR CPT-J3420 Vitamin B12 1000mcg (Cyanocobalamin) 09:23:21 SONAR SUBSYSTEM EQUIPMENT OPERATOR CPT-71280 Abx/Therapy Injection 09:23:21 SONAR SUBSYSTEM EQUIPMENT OPERATOR CPT-55092 Urine Dip (Floor Use Only) 20:21:44 SONAR SUBSYSTEM EQUIPMENT OPERATOR 201 02/12/11 CPT-84951 UA Dip Auto (Floor Use Only) 10:04:39 SONAR SUBSYSTEM EQUIPMENT OPERATOR 2 CPT-88129 Urine Dip (Floor Use Only) 13:27:28 SONAR SUBSYSTEM EQUIPMENT OPERATOR 201 02/12/01 CPT-50541 Bladder Scan 13:27:28 SONAR SUBSYSTEM EQUIPMENT OPERATOR CPT-10112 Abd single AP View 14:30:51 SONAR SUBSYSTEM EQUIPMENT OPERATOR CPT-OV Office Visit 10:15:43 CDT CPT-44397 Urine Dip (Floor Use Only) 17:22:21 CDT 201 02/09/02 CPT-47700 Bladder Scan 17:22:21 CDT
--- OUTSIDE RECORDS SUMMARY | 2020-05-05 12:39 | XMS REPORT | Clinical Summary ---
Author Author Jeri Hanley Organization [employer] Address Unknown Phone Unavailable Allergies, Adverse Reactions, [...] MD NAPROXEN Critical Active Kayla guadarrama MD BENADRYsIrael Critical Active Kayla tate MD ATIVAN Critical [...] 1 tablet by mouth daily FLU CONAZOLE [id number] Active Tesfaye Sherman MD Active BACTRIM DS 800-160 MG TAB 1 tab by mouth twice daily 2 TRIMETHOPRIM-SULFAMETHOXAZOLE 81854149658 Active Tesfaye Sherman MD Active BACTRIM DS 800-160 MG TAB 1 tab by mouth twice daily 2 TRIMETHOPRIM-SULFAMETHOXAZOLE 66449758015 No Longer Active Tesfaye Sherman MD Active DIFLUCAN 150 MG TAB 1 tablet by mouth daily FLU CONAZOLE 09974467362 No Longer Active Tesfaye Sherman MD Active BACTRIM DS 800-160 MG TAB 1 tab by mouth twice daily 2 TRIMETHOPRIM-SULFAMETHOXAZOLE 65602633054 No Longer Active Tesfaye Sherman MD Active ROPINIROLE HCL 0.25 MG ORAL TABS 1 TAB PO Q HS ROPINIROLE HCL 02555708133 Active Tesfaye Sherman MD Active CYMBALTA 30 MG CPEP 1 cap by mouth daily with 60mg DULOXETINE HCL 65903947092 Active Tesfaye Sherman MD Active CEFTIN 250 MG TAB 1 tablet twice daily x 7 days 11/19 CEFUROXIME AXETIL 18514079261 No Longer Active Tesfaye Sherman MD Acti ve DIFLUCAN 100 MG TABS 1 tablet by mouth every other day for 2 dos es FLUCONAZOLE 61863891708 No Longer Active Tesfaye Sherman MD Active DIFLUCAN 100 MG TAB 1 tablet by mouth daily X 3 DAYS 2 FLUCONAZOLE 57618564037 No Longer Active Rj Moss DO Active MIRTAZAPINE 15 MG ORAL TABS 1/2 tab by mouth at bedtime. MIRTAZAPINE 15741428337 No Longer Active Tesfaye Sherman MD Acti ve BACTRIM DS 800-160 MG TAB 1 tab by mouth twice daily 2 TRIMETHOPRIM-SULFAMETHOXAZOLE 18731159284 No Longer Active Tesfaye Sherman MD Active PRAMIPEXOLE DIHYDROCHLORIDE 0.125 MG ORAL TABS take 1 tablet po qhs for restless leg syndrome. PRAMIPEXOLE DIHYDROCHLORIDE 53996817848 No Longer Active Tesfaye Sherman MD Active MAGNESIUM 400 MG ORAL TABS 1 tab po daily MAGNESI UM 77173351840 Active Chelsea Barba APRN Active SUDAFED 24 HOUR 240 MG ORAL [id number] 1 tab po daily PSEUDOEPHEDRINE HCL 92993214735 Active Chelsea Barba APRN A ctive CETIRIZINE HCL 5 MG TABS Take 1 tablet by mouth daily CETIRIZINE HCL 92919711884 No Longer Active Chelsea Barba APRN Acti ve TRIMETHOPRIM 100 MG TABS 1/2 qd TRIMETHOPRIM 98366247203 No Longer Active Chelsea Barba APRN Active BACTRIM DS 800-160 MG TAB 1 tab by mouth twice daily 2 TRIMETHOPRIM-SULFAMETHOXAZOLE 57282953929 No Longer Active Tesfaye Sherman MD Active BACTRIM DS 800-160 MG TAB 1 tab by mouth twice daily X 10 DAYS 2 TRIMETHOPRIM-SULFAMETHOXAZOLE 75047028436 No Longer Active D patricia Sherman MD Active AMOXICILLIN 500 MG CAPS 1 cap by mouth three times a day AMOXICILLIN 28786015460 No Longer Active Adriana Arredondo Active MECLIZINE HCL 25 MG TAB one tab po qday prn dizziness MECLIZINE HCL 50032556054 Active Tesfaye Sherman MD Active B-12 1000 MCG ORAL LOZG 1 tab po daily CYANOCOBAL STANTON 57800060925 Active Tesfaye Sherman MD Active VITAMIN D3 2000 UNIT TABS 1 daily, for vitamin D deficiency 2014 CHOLECALCIFEROL 60026921349 No Longer Active Tesfaye Sherman MD Active TIZANIDINE HCL 2 MG TABS take 1-2 tablet by mouth ev [place] day at bedtime at 9pm PRN TIZANIDINE HCL 73570161839 Active Tesfaye Owusu Active ZITHROMAX 250 MG TAB 2 po today, then 1 po q days 2-5 AZITHROMYCIN 73605592704 No Longer Active Tesfaye Sherman MD Acti ve BACTRIM DS 800-160 MG TAB 1 tab by mouth twice daily 2 TRIMETHOPRIM-SULFAMETHOXAZOLE 55854565761 No Longer Active Tesfaye Sherman MD Active PRELIEF 340 (65-50) MG (CA-P) ORAL TABS CALCIUM GLYCEROPHOSPHATE 03856538527 Active Tesfaye Sherman MD Active [facility] NIACIN FLUSH FREE 400-100 MG CAPS 1 daily NIACIN-INOSITOL 63581922778 Active Kayla Cooper MD Active DIFLUCAN 150 MG TABS 1 qd FLUCONAZOLE 47958 505278 No Longer Active Kayla Cooper MD Active FLUTICASONE PROPIONATE 50 MCG/ACT SUSP 1 spray each nostril twice daily FLUTICASONE PROPIONATE 39849174731 Active Tesfaye armenta MD Active LOVASTATIN 20 MG TABS Take 1 tablet by mouth daily LOVASTATIN 69529180671 No Longer Active Tesfaye Sherman MD Active MELOXICAM 7.5 MG TABS 1 tablet by mouth daily M ELOXICAM 40907759550 No Longer Active Tesfaye Sherman MD Active GABAPENTIN 300 MG CAPS Take two tablets by mouth every evening GABAPENTIN 86921756990 No Longer Active Edith Burch MD Active OXYCODONE-ACETAMINOPHEN 5-325 MG TABS Take one tablet by mouth every 6 hours as needed. Max 12 tabs/day as needed OXYCODONE-ACETAMINOP HEN 18881709946 Active Tesfaye Sherman MD Active CYMBALTA 60 MG CPEP Take 1 tablet by mouth daily D ULOXETINE HCL 87650239511 Active Kayla Cooper MD Active CLONAZEPAM 0.5 MG TABS Take one tablet in the morning and 1.5 table t at 7pm CLONAZEPAM 60150034602 Active Kayla Cooper MD Active BACLOFEN 10 MG TABS Take one tablet by mouth three times a day BACLOFEN 38503981853 Active Kayla Cooper MD Active GABAPENTIN 300 MG CAPS Take two tablets by mouth every evening GABAPENTIN 300 MG CAPS 029643 GABAPENTIN Inactive MELOXICAM 7.5 MG TABS 1 tablet by mouth daily MELOXICAM 7.5 MG TABS 268281 MELOXICAM Inactive LOVASTATIN 20 MG TABS Take 1 tablet by mouth daily 201 02/12/20 LOVASTATIN 20 MG TABS 927157 LOVASTATIN Inactive DIFLUCAN 150 MG TABS 1 qd DIFLUCAN 150 MG T ABS 19760712 FLUCONAZOLE Inactive VITAMIN D3 2000 UNIT TABS 1 daily, for vitamin D deficiency 2014 VITAMIN D3 2000 UNIT TABS CHOLECALCIFEROL Inacti ve AMOXICILLIN 500 MG CAPS 1 cap by mouth three times a day AMOXICILLIN 500 MG CAPS 430526 AMOXICILLIN Inactive BACTRIM DS 800-160 MG TAB 1 tab by mouth twice daily X 10 DAYS 2 BACTRIM DS 800-160 MG TAB 912605 TRIMETHOPRIM-SULFAMETH OXAZOLE Inactive TRIMETHOPRIM 100 MG TABS 1/2 qd TRIMETHOPRI M 100 MG TABS 559044 TRIMETHOPRIM Inactive CETIRIZINE HCL 5 MG TABS Take 1 tablet by mouth daily CETIRIZINE HCL 5 MG TABS 0239409 CETIRIZINE HCL Inactive PRAMIPEXOLE DIHYDROCHLORIDE 0.125 MG ORAL TABS take 1 tablet po qhs for restless leg syndrome. PRAMIPEXOLE DIHYDROC HLORIDE 0.125 MG ORAL TABS 344667 PRAMIPEXOLE DIHYDROCHLORIDE Inactive MIRTAZAPINE 15 MG ORAL TABS 1/2 tab by mouth at bedtime. MIRTAZAPINE 15 MG ORAL TABS 803011 MIRTAZAPINE Inactive DIFLUCAN 100 MG TAB 1 tablet by mouth daily X 3 DAYS 2 DIFLUCAN 100 MG TAB 069226 FLUCONAZOLE Inactive DIFLUCAN 100 MG TABS 1 tablet by mouth every other day for 2 dos es DIFLUCAN 100 MG TABS 19760711 FLUCONAZOLE Inactive CEFTIN 250 MG TAB 1 tablet twice daily x 7 days 11/19 CEFTIN 250 MG TAB 732815 CEFUROXIME AXETIL Inactive BACTRIM DS 800-160 MG TAB 1 tab by mouth twice daily 2 BACTRIM DS 800-160 MG TAB 19830105 TRIMETHOPRIM-SULFAMETHOXAZOLE Inac tive ZITHROMAX 250 MG TAB 2 po today, then 1 po q days 2-5 ZITHROMAX 250 MG TAB 8607183 AZITHROMYCIN Inactive BACTRIM DS 800-160 MG TAB [...] mg/dL Encounters Code Encounter Date Provider Facility CPT-11563 Level 4 Est. Patient 09:14:56 CDT Tesfaye pearson MD [facility] CPT-12273 Level 4 Est. Patient 18:40:25 SWITCH OPERATOR Tesfaye pearson MD [facility] CPT-71926 Level 4 Est. Patient 18:13:07 SWITCH OPERATOR Tesfaye pearson MD [facility] CPT-57783 Level 3 Est. Patient 10:46:32 CDT Rj cotto DO [facility] CPT-82378 Level 4 Est. Patient 20:19:25 CDT Tesfaye pearson MD [facility] CPT-57418 Level 3 Est. Patient 09:07:31 CDT Tesfaye pearson MD [facility] CPT-24824 Level 4 Est. Patient 13:12:56 CDT Tesfaye pearson MD [facility] CPT-68188 Level 4 Est. Patient 21:24:55 SWITCH OPERATOR Tesfaye pearson MD [facility] CPT-03662 Level 3 Est. Patient 13:45:04 SWITCH OPERATOR Tesfaye pearson MD [facility] CPT-59212 Level 4 Est. Patient 13:50:45 CDT Tesfaye pearson MD [facility] CPT-36466 Level 3 Est. Patient 10:16:10 CDT Tesfaye pearson MD [facility] CPT-70575 Level 3 Est. Patient 16:36:07 SWITCH OPERATOR Kayla jameson MD [facility] CPT-47158 Level 4 Est. Patient 16:00:14 SWITCH OPERATOR Tesfaye pearson MD [facility] CPT-65480 Level 4 Est. Patient 11:02:24 SWITCH OPERATOR Tesfaye pearson MD [facility] CPT-39419 Level 3 Est. Patient 20:21:43 SWITCH OPERATOR Kayla jameson MD [facility] CPT-57859 Level 3 Est. Patient 13:27:28 SWITCH OPERATOR Kayla jameson MD [facility] CPT-49364 Level 4 Est. Patient 15:57:17 SWITCH OPERATOR Tesfaye pearson MD [facility] CPT-16316 Level 3 New Patient 13:25:47 CDT Tesfaye kidd MD [facility] CPT-00925 Level 3 New Patient 17:22:21 CDT Kayla angel [facility] Procedures Code Procedure Name Date Entry Date Standard Desc ription CPT-G0438 Initial Annual Wellness Exam 11:23:17 CD T CPT-J2930 Solu Medrol 125 mg (Methyl Prednisolone Sodium Succinate) 17:29:12 SWITCH OPERATOR CPT-94148 Abx/Therapy Injection 17:29:11 SWITCH OPERATOR CPT-J2930 Solu Medrol 125 mg (Methyl Prednisolone Sodium Succinate) 12:34:38 SWITCH OPERATOR CPT-J3420 Vitamin B12 1000mcg (Cyanocobalamin) 09:12:55 CDT CPT-J3420 Vitamin B12 1000mcg (Cyanocobalamin) 16:28:06 SWITCH OPERATOR CPT-40051 Venipuncture Draw Fee 08:39:53 CDT CPT-J3420 Vitamin B12 1000mcg (Cyanocobalamin) 08:46:22 CDT CPT-24389 Abx/Therapy Injection 08:46:22 CDT CPT-J3420 Vitamin B12 1000mcg (Cyanocobalamin) 08:41:26 CDT CPT-70824 Abx/Therapy Injection 08:41:26 CDT CPT-J3420 Vitamin B12 1000mcg (Cyanocobalamin) 08:57:15 CDT CPT-80264 Abx/Therapy Injection 08:57:15 CDT CPT-J3420 Vitamin B12 1000mcg (Cyanocobalamin) 10:59:03 CDT CPT-91182 Abx/Therapy Injection 10:59:03 CDT CPT-J3420 Vitamin B12 1000mcg (Cyanocobalamin) 15:05:39 CDT CPT-65468 Abx/Therapy Injection 15:05:39 CDT CPT-J3420 Vitamin B12 1000mcg (Cyanocobalamin) 13:50:45 CDT CPT-J3420 Vitamin B12 1000mcg (Cyanocobalamin) 08:48:55 CDT CPT-33141 Abx/Therapy Injection 08:48:55 CDT CPT-J3420 Vitamin B12 1000mcg (Cyanocobalamin) 09:14:54 CDT CPT-28758 Abx/Therapy Injection 09:14:54 CDT CPT-J3420 Vitamin B12 1000mcg (Cyanocobalamin) 09:06:06 CDT CPT-87152 Abx/Therapy Injection 09:06:06 CDT CPT-J3420 Vitamin B12 1000mcg (Cyanocobalamin) 09:49:14 CDT CPT-13943 Abx/Therapy Injection 09:49:14 CDT CPT-J3420 Vitamin B12 1000mcg (Cyanocobalamin) 09:10:30 SWITCH OPERATOR CPT-66181 Abx/Therapy Injection 09:10:30 SWITCH OPERATOR CPT-J3420 Vitamin B12 1000mcg (Cyanocobalamin) 09:11:07 SWITCH OPERATOR CPT-22402 Abx/Therapy Injection 09:11:07 SWITCH OPERATOR CPT-J3420 Vitamin B12 1000mcg (Cyanocobalamin) 09:57:03 SWITCH OPERATOR CPT-48744 Abx/Therapy Injection 09:57:03 SWITCH OPERATOR CPT-J3420 Vitamin B12 1000mcg (Cyanocobalamin) 09:23:21 SWITCH OPERATOR CPT-58680 Abx/Therapy Injection 09:23:21 SWITCH OPERATOR CPT-36761 Urine Dip (Floor Use Only) 20:21:44 SWITCH OPERATOR 201 02/12/11 CPT-16596 UA Dip Auto (Floor Use Only) 10:04:39 SWITCH OPERATOR 2 CPT-40455 Urine Dip (Floor Use Only) 13:27:28 SWITCH OPERATOR 201 02/12/01 CPT-93332 Bladder Scan 13:27:28 SWITCH OPERATOR CPT-63252 Abd single AP View 14:30:51 SWITCH OPERATOR CPT-OV Office Visit 10:15:43 CDT CPT-52145 Urine Dip (Floor Use Only) 17:22:21 CDT 201 02/09/02 CPT-05259 Bladder Scan 17:22:21 CDT
--- OUTSIDE RECORDS SUMMARY | 2020-05-05 12:39 | XMS REPORT | Clinical Summary ---
Author Author Jeri Hanley Organization [employer] Address Unknown Phone Unavailable Allergies, Adverse Reactions, [...] lying down x 1 hour. ALENDRONATE SODIUM [id number] Active Tesfaye Sherman MD Active REPHRESH PRO-B ORAL CAPS 1 tablet daily LACTOBACI LLUS 51733286748 Active Edith Burch MD Active CYMBALTA 60 MG CPEP Take 1 tablet by mouth daily 1 DULOXETINE HCL 64101794951 No Longer Active Edith Burch MD Active CYMBALTA 30 MG CPEP 1 cap by mouth daily with 60mg 201 05/09/11 DULOXETINE HCL 72930029603 No Longer Active Edith Burch MD Activ e FISH OIL 1000 MG CPDR 1 pill by mouth daily for cholesterol 04/18 OMEGA- 3 FATTY ACIDS 84750268902 Active Rosa Jaffe LPN Acteh ve RED YEAST RICE 600 MG CAPS 1 pill by mouth daily RED YEAST RICE EXTRACT 69672377832 Active Rosa Jaffe LPN Activ e VENLAFAXINE HCL 37.5 MG TABS 1/4 tab po titrating up to full dose 2 VENLAFAXINE HCL 09487165942 Active Chelsea Barba APRN Activ e DIFLUCAN 100 MG TAB 1 tablet by mouth daily FLU CONAZOLE 27932110391 No Longer Active Tesfaye Sherman MD Active BACTRIM DS 800-160 MG TAB 1 tab by mouth twice daily 2 TRIMETHOPRIM-SULFAMETHOXAZOLE 67076000161 No Longer Active Tesfaye Sherman MD Active BACTRIM DS 800-160 MG TAB 1 tab by mouth twice daily 2 TRIMETHOPRIM-SULFAMETHOXAZOLE 54522245716 No Longer Active Tesfaye Sherman MD Active DIFLUCAN 150 MG TAB 1 tablet by mouth daily FLU CONAZOLE 88487497923 No Longer Active Tesfaye Sherman MD Active BACTRIM DS 800-160 MG TAB 1 tab by mouth twice daily 2 TRIMETHOPRIM-SULFAMETHOXAZOLE 46940528552 No Longer Active Tesfaye Sherman MD Active ROPINIROLE HCL 0.25 MG ORAL TABS 1 TAB PO Q HS ROPINIROLE HCL 19509008619 Active Tesfaye Sherman MD Active CEFTIN 250 MG TAB 1 tablet twice daily x 7 days 11/19 CEFUROXIME AXETIL 77131491468 No Longer Active Tesfaye Sherman MD Acti ve DIFLUCAN 100 MG TABS 1 tablet by mouth every other day for 2 dos es FLUCONAZOLE 76253768045 No Longer Active Tesfaye Sherman MD Active DIFLUCAN 100 MG TAB 1 tablet by mouth daily X 3 DAYS 2 FLUCONAZOLE 95913247619 No Longer Active Rj Moss DO Active MIRTAZAPINE 15 MG ORAL TABS 1/2 tab by mouth at bedtime. MIRTAZAPINE 91542979661 No Longer Active Tesfaye Sherman MD Acti ve BACTRIM DS 800-160 MG TAB 1 tab by mouth twice daily 2 TRIMETHOPRIM-SULFAMETHOXAZOLE 26998194799 No Longer Active Tesfaye Sherman MD Active PRAMIPEXOLE DIHYDROCHLORIDE 0.125 MG ORAL TABS take 1 tablet po qhs for restless leg syndrome. PRAMIPEXOLE DIHYDROCHLORIDE 31963107459 No Longer Active Tesfaye Sherman MD Active MAGNESIUM 400 MG ORAL TABS 1 tab po daily MAGNESI UM 74097275226 Active Chelsea Barba APRN Active SUDAFED 24 HOUR 240 MG ORAL [id number] 1 tab po daily PSEUDOEPHEDRINE HCL 27626973200 Active Chelsea Barba APRN A ctive CETIRIZINE HCL 5 MG TABS Take 1 tablet by mouth daily CETIRIZINE HCL 43887818766 No Longer Active Chelsea Barba APRN Acti ve TRIMETHOPRIM 100 MG TABS 1/2 qd TRIMETHOPRIM 74961145210 No Longer Active Chelsea Barba APRN Active BACTRIM DS 800-160 MG TAB 1 tab by mouth twice daily 2 TRIMETHOPRIM-SULFAMETHOXAZOLE 63743657291 No Longer Active Tesfaye Sherman MD Active BACTRIM DS 800-160 MG TAB 1 tab by mouth twice daily X 10 DAYS 2 TRIMETHOPRIM-SULFAMETHOXAZOLE 35713841390 No Longer Active Umer Sherman MD Active AMOXICILLIN 500 MG CAPS 1 cap by mouth three times a day AMOXICILLIN 88200005707 No Longer Active Adriana Arredondo Active MECLIZINE HCL 25 MG TAB one tab po qday prn dizziness MECLIZINE HCL 43900012553 Active Tesfaye Sherman MD Active B-12 1000 MCG ORAL LOZG 1 tab po daily CYANOCOBAL STANTON 91619389237 Active Tesfaye Sherman MD Active VITAMIN D3 2000 UNIT TABS 1 daily, for vitamin D deficiency 2014 CHOLECALCIFEROL 84841921520 No Longer Active Tesfaye Sherman MD Active TIZANIDINE HCL 2 MG TABS take 1-2 tablet by mouth at bedtime at 9pm PRN TIZANIDINE HCL 74194318275 Active Tesfaye Owusu Active ZITHROMAX 250 MG TAB 2 po today, then 1 po q days 2-5 AZITHROMYCIN 04604165622 No Longer Active Tesfaye Sherman MD Acti ve BACTRIM DS 800-160 MG TAB 1 tab by mouth twice daily 2 TRIMETHOPRIM-SULFAMETHOXAZOLE 89861022172 No Longer Active Tesfaye Sherman MD Active PRELIEF 340 (65-50) MG (CA-P) ORAL TABS CALCIUM GLYCEROPHOSPHATE 34870165456 Active Tesfaye Sherman MD Active [facility] NIACIN FLUSH FREE 400-100 MG CAPS 1 daily NIACIN-INOSITOL 27119234826 Active Kayla Cooper MD Active DIFLUCAN 150 MG TABS 1 qd FLUCONAZOLE 46082 273275 No Longer Active Kayla Cooper MD Active FLUTICASONE PROPIONATE 50 MCG/ACT SUSP 1 spray each nostril twice daily FLUTICASONE PROPIONATE 00657697693 Active Tesfaye armenta MD Active LOVASTATIN 20 MG TABS Take 1 tablet by mouth daily LOVASTATIN 14937425034 No Longer Active Tesfaye Sherman MD Active MELOXICAM 7.5 MG TABS 1 tablet by mouth daily M ELOXICAM 18192221716 No Longer Active Tesfaye Sherman MD Active GABAPENTIN 300 MG CAPS Take two tablets by mouth every evening GABAPENTIN 06829308227 No Longer Active Edith Burch MD Active OXYCODONE-ACETAMINOPHEN 5-325 MG TABS Take one tablet by mouth every 6 hours as needed. Max 12 tabs/day as needed OXYCODONE-ACETAMINOP HEN 75578931646 Active Tesfaye Sherman MD Active CLONAZEPAM 0.5 MG TABS Take one tablet in the morning and 1.5 table t at 7pm CLONAZEPAM 70003521144 Active Kayla Cooper MD Active BACLOFEN 10 MG TABS Take one tablet by mouth three times a day BACLOFEN 54550011397 Active Kayla Cooper MD Active GABAPENTIN 300 MG CAPS Take two tablets by mouth every evening GABAPENTIN 300 MG CAPS 467327 GABAPENTIN Inactive MELOXICAM 7.5 MG TABS 1 tablet by mouth daily MELOXICAM 7.5 MG TABS 348771 MELOXICAM Inactive LOVASTATIN 20 MG TABS Take 1 tablet by mouth daily 201 02/12/20 LOVASTATIN 20 MG TABS 130909 LOVASTATIN Inactive DIFLUCAN 150 MG TABS 1 qd DIFLUCAN 150 MG T ABS 903208 FLUCONAZOLE Inactive VITAMIN D3 2000 UNIT TABS 1 daily, for vitamin D deficiency 2014 VITAMIN D3 2000 UNIT TABS CHOLECALCIFEROL Inacti ve AMOXICILLIN 500 MG CAPS 1 cap by mouth three times a day AMOXICILLIN 500 MG CAPS 944409 AMOXICILLIN Inactive BACTRIM DS 800-160 MG TAB 1 tab by mouth twice daily X 10 DAYS 2 BACTRIM DS 800-160 MG TAB 19830105 TRIMETHOPRIM-SULFAMETH OXAZOLE Inactive TRIMETHOPRIM 100 MG TABS 1/2 qd TRIMETHOPRI M 100 MG TABS 587598 TRIMETHOPRIM Inactive CETIRIZINE HCL 5 MG TABS Take 1 tablet by mouth daily CETIRIZINE HCL 5 MG TABS 5378343 CETIRIZINE HCL Inactive PRAMIPEXOLE DIHYDROCHLORIDE 0.125 MG ORAL TABS take 1 tablet po qhs for restless leg syndrome. PRAMIPEXOLE DIHYDROC HLORIDE 0.125 MG ORAL TABS 328006 PRAMIPEXOLE DIHYDROCHLORIDE Inactive MIRTAZAPINE 15 MG ORAL TABS 1/2 tab by mouth at bedtime. MIRTAZAPINE 15 MG ORAL TABS 062187 MIRTAZAPINE Inactive DIFLUCAN 100 MG TAB 1 tablet by mouth daily X 3 DAYS 2 DIFLUCAN 100 MG TAB 659536 FLUCONAZOLE Inactive DIFLUCAN 100 MG TABS 1 tablet by mouth every other day for 2 dos es DIFLUCAN 100 MG TABS 759565 FLUCONAZOLE Inactive CEFTIN 250 MG TAB 1 tablet twice daily x 7 days 11/19 CEFTIN 250 MG TAB 034129 CEFUROXIME AXETIL Inactive CYMBALTA 30 MG CPEP 1 cap by mouth daily with 60mg 201 05/09/11 CYMBALTA 30 MG CPEP 058820 DULOXETINE HCL Inactive CYMBALTA 60 MG CPEP Take 1 tablet by mouth daily 05/13 CYMBALTA 60 MG CPEP 984197 DULOXETINE HCL Inactive BACTRIM DS 800-160 MG TAB 1 tab by mouth twice daily 2 BACTRIM DS 800-160 MG TAB 19830105 TRIMETHOPRIM-SULFAMETHOXAZOLE Inac tive ZITHROMAX 250 MG TAB 2 po today, then 1 po q days 2-5 ZITHROMAX 250 MG TAB 1419111 AZITHROMYCIN Inactive BACTRIM DS 800-160 MG TAB [...] by mouth daily DIFLUCAN 150 MG TAB 329734 FLUCONAZOLE Inactive BACTRIM DS 800-160 MG TAB 1 tab by mouth twice daily 2 BACTRIM DS 800-160 MG TAB 19830105 TRIMETHOPRIM-SULFAMETHOXAZOLE Inac tive BACTRIM DS 800-160 MG TAB 1 tab by mouth twice daily 2 BACTRIM DS 800-160 MG TAB 19830105 TRIMETHOPRIM-SULFAMETHOXAZOLE Inac tive DIFLUCAN 100 MG TAB 1 tablet by mouth daily DIFLUCAN 100 MG TAB 850493 FLUCONAZOLE Inactive Advance Directives Directive Description Start [...] ... - Chemistry sodium, serum 144 mmol/L 905-932 8251/06/14 carbon dioxide, venous blood 29.4 mmol/L 21.0-32 .0 potassium, serum 4.4 mmol/L 3.5-5.2 chloride, serum 108 mmol/L 98-107 blood glucose 100 mg/dL 65-110 urea nitrogen, blood 9 mg/dL 7-18 creatinine, serum 0.67 mg/dL 0.55-1.30 alanine aminotransferase (SGPT), serum 24 U/L 12-78 aspartate aminotransferase (SGOT), serum 15 U/L 15-37 calcium, serum 9.3 mg/dL 8.5-10.1 bilirubin, serum, total 0.50 mg/dL 0.00-1.00 cholesterol, serum 268 mg/dL 154-757 8184/06/14 triglyceride, serum, fasting 126 mg/dL 30-200 HDL [...] mg/dL Encounters Code Encounter Date Provider Facility CPT-89172 Level 4 Est. Patient 13:56:54 CDT Tesfaye pearson MD [facility] CPT-63408 Level 4 Est. Patient 13:24:25 CDT Stephanie MERCADO [facility] CPT-99703 Level 4 Est. Patient 09:14:56 CDT Tesfaye pearson MD [facility]-48593 Level 4 Est. Patient 18:40:25 [employer] Tesfaye pearson MD [facility]-18099 Level 4 Est. Patient 18:13:07 ENVIRONMENTAL [employer]ER Tesfaye pearson MD [facility]-12850 Level 3 Est. Patient 10:46:32 CDT Rj cotto DO [facility]-18742 Level 4 Est. Patient 20:19:25 CDT Tesfaye pearson MD [facility]-44538 Level 3 Est. Patient 09:07:31 CDT Tesfaye pearson MD [facility]-12692 Level 4 Est. Patient 13:12:56 CDT Tesfaye pearson MD [facility]-91586 Level 4 Est. Patient 21:24:55 ENVIRONMENTAL [employer]ER Tesfaye pearson MD [facility]-10875 Level 3 Est. Patient 13:45:04 ENVIRONMENTAL WE[employer] C[employer]ER Tesfaye pearson MD [facility] CPT-05854 Level 4 Est. Patient 13:50:45 CDT Tesfaye pearson MD [facility] CPT-91588 Level 3 Est. Patient 10:16:10 CDT Tesfaye pearson MD [facility] CPT-99103 Level 3 Est. Patient 16:36:07 ENVIRONMENTAL [employer]ER Kayla jameson MD [facility]-41299 Level 4 Est. Patient 16:00:14 ENVIRONMENTAL WE[employer]ER Tesfaye pearson MD [facility]-00800 Level 4 Est. Patient 11:02:24 ENVIRONMENTAL WE[employer] C[employer]ER Tesfaye pearson MD [facility]-87364 Level 3 Est. Patient 20:21:43 ENVIRONMENTAL WE[employer] C[employer]ER Kayla jameson MD [facility]-10012 Level 3 Est. Patient 13:27:28 ENVIRONMENTAL WE[employer] CRAWLER Kayla jameson MD [facility] CPT-65795 Level 4 Est. Patient 15:57:17 ENVIRONMENTAL WE[employer] C[employer]ER Tesfaye pearson MD [facility] CPT-07010 Level 3 New Patient 13:25:47 CDT Tesfaye kidd MD [facility] CPT-53704 Level 3 New Patient 17:22:21 CDT Kayla angel MD [facility] Procedures Code Procedure Name Date Entry Date Standard Desc ription CPT-88712 Bone Density - XRAY USE ONLY 11:43:58 CDT 2 CPT-88995 Bone Density - XRAY USE ONLY 10:05:16 CDT 2 CPT-32072 Prv Med New Pt 40-64 yrs 18:19:25 CDT 2016 CPT-67211 Foot, right, comp min 3V - XRAY USE ONLY 10:38:34 CDT CPT-G0439 Subsequent Annual Wellness Exam 13:55:04 CDT CPT-G0438 Initial Annual Wellness Exam 11:23:17 CD T CPT-J2930 Solu Medrol 125 mg (Methyl Prednisolone Sodium Succinate) 17:29:12 ENVIRONMENTAL WE[employer]ER CPT-22203 Abx/Therapy Injection 17:29:11 ENVIRONMENTAL WE[employer]WLER CPT-J2930 Solu Medrol 125 mg (Methyl Prednisolone Sodium Succinate) 12:34:38 ENVIRONMENTAL WE[employer]ER CPT-J3420 Vitamin B12 1000mcg (Cyanocobalamin) 09:12:55 CDT CPT-J3420 Vitamin B12 1000mcg (Cyanocobalamin) 16:28:06 ENVIRONMENTAL WE[employer]ER CPT-31075 Venipuncture Draw Fee 08:39:53 CDT CPT-J3420 Vitamin B12 1000mcg (Cyanocobalamin) 08:46:22 CDT CPT-23837 Abx/Therapy Injection 08:46:22 CDT CPT-J3420 Vitamin B12 1000mcg (Cyanocobalamin) 08:41:26 CDT CPT-45970 Abx/Therapy Injection 08:41:26 CDT CPT-J3420 Vitamin B12 1000mcg (Cyanocobalamin) 08:57:15 CDT CPT-68551 Abx/Therapy Injection 08:57:15 CDT CPT-J3420 Vitamin B12 1000mcg (Cyanocobalamin) 10:59:03 CDT CPT-17156 Abx/Therapy Injection 10:59:03 CDT CPT-J3420 Vitamin B12 1000mcg (Cyanocobalamin) 15:05:39 CDT CPT-49172 Abx/Therapy Injection 15:05:39 CDT CPT-J3420 Vitamin B12 1000mcg (Cyanocobalamin) 13:50:45 CDT CPT-J3420 Vitamin B12 1000mcg (Cyanocobalamin) 08:48:55 CDT CPT-21069 Abx/Therapy Injection 08:48:55 CDT CPT-J3420 Vitamin B12 1000mcg (Cyanocobalamin) 09:14:54 CDT CPT-49960 Abx/Therapy Injection 09:14:54 CDT CPT-J3420 Vitamin B12 1000mcg (Cyanocobalamin) 09:06:06 CDT CPT-89010 Abx/Therapy Injection 09:06:06 CDT CPT-J3420 Vitamin B12 1000mcg (Cyanocobalamin) 09:49:14 CDT CPT-18613 Abx/Therapy Injection 09:49:14 CDT CPT-J3420 Vitamin B12 1000mcg (Cyanocobalamin) 09:10:30 ENVIRONMENTAL WE[employer]ER CPT-28824 Abx/Therapy Injection 09:10:30 ENVIRONMENTAL WEB CRAWLER CPT-J3420 Vitamin B12 1000mcg (Cyanocobalamin) 09:11:07 ENVIRONMENTAL WEB CRAWLER CPT-59731 Abx/Therapy Injection 09:11:07 ENVIRONMENTAL WE[employer] CRA[employer]ER CPT-J3420 Vitamin B12 1000mcg (Cyanocobalamin) 09:57:03 ENVIRONMENTAL WEB CRAWLER CPT-09825 Abx/Therapy Injection 09:57:03 ENVIRONMENTAL WEB CRAWLER CPT-J3420 Vitamin B12 1000mcg (Cyanocobalamin) 09:23:21 ENVIRONMENTAL WE[employer] CRAWLER CPT-12952 Abx/Therapy Injection 09:23:21 ENVIRONMENTAL WE[employer]ER CPT-70735 Urine Dip (Floor Use Only) 20:21:44 ENVIRONMENTAL WEB CRAWLER 201 02/12/11 CPT-08864 UA Dip Auto (Floor Use Only) 10:04:39 ENVIRONMENTAL WEB CRAWLER 2 CPT-97661 Urine Dip (Floor Use Only) 13:27:28 ENVIRONMENTAL WE[employer] CRAWLER 201 02/12/01 CPT-23793 Bladder Scan 13:27:28 ENVIRONMENTAL WE[employer] C[employer]ER CPT-55916 Abd single AP View 14:30:51 ENVIRONMENTAL WE[employer] CRAWLER CPT-OV Office Visit 10:15:43 CDT CPT-20291 Urine Dip (Floor Use Only) 17:22:21 CDT 201 02/09/02 CPT-51856 Bladder Scan 17:22:21 CDT
--- OUTSIDE RECORDS SUMMARY | 2020-05-05 12:39 | XMS REPORT | Clinical Summary ---
Author Author Jeri Hanely Organization [email or web address] Address Unknown Phone Unavailable Allergies, Adverse Reactions, [...] lying down x 1 hour. ALENDRONATE SODIUM [id number] Active Tesfaye Sherman MD Active REPHRESH PRO-B ORAL CAPS 1 tablet daily LACTOBACI LLUS 16770935199 Active Edith Burch MD Active CYMBALTA 60 MG CPEP Take 1 tablet by mouth daily 1 DULOXETINE HCL 02746148943 No Longer Active Edith Burch MD Active CYMBALTA 30 MG CPEP 1 cap by mouth daily with 60mg 201 05/09/11 DULOXETINE HCL 72833941280 No Longer Active Edith Burch MD Activ e FISH OIL 1000 MG CPDR 1 pill by mouth daily for cholesterol 04/18 OMEGA- 3 FATTY ACIDS 00308715793 Active Rosa Jaffe LPN Acti ve RED YEAST RICE 600 MG CAPS 1 pill by mouth daily RED YEAST RICE EXTRACT 87981427049 Active Rosa Jaffe LPN Activ e VENLAFAXINE HCL 37.5 MG TABS 1/4 tab po titrating up to full dose 2 VENLAFAXINE HCL 44614045272 Active Chelsea Barba APRN Activ e DIFLUCAN 100 MG TAB 1 tablet by mouth daily FLU CONAZOLE 59268229081 No Longer Active Tesfaye Sherman MD Active BACTRIM DS 800-160 MG TAB 1 tab by mouth twice daily 2 TRIMETHOPRIM-SULFAMETHOXAZOLE 77763265823 No Longer Active Tesfaye Sherman MD Active BACTRIM DS 800-160 MG TAB 1 tab by mouth twice daily 2 TRIMETHOPRIM-SULFAMETHOXAZOLE 21026407930 No Longer Active Tesfaye Sherman MD Active DIFLUCAN 150 MG TAB 1 tablet by mouth daily FLU CONAZOLE 01610931575 No Longer Active Tesfaye Sherman MD Active BACTRIM DS 800-160 MG TAB 1 tab by mouth twice daily 2 TRIMETHOPRIM-SULFAMETHOXAZOLE 19665478020 No Longer Active Tesfaye Sherman MD Active ROPINIROLE HCL 0.25 MG ORAL TABS 1 TAB PO Q HS ROPINIROLE HCL 31129063282 Active Tesfaye Sherman MD Active CEFTIN 250 MG TAB 1 tablet twice daily x 7 days 11/19 CEFUROXIME AXETIL 54288173341 No Longer Active Tesfaye Sherman MD Acti ve DIFLUCAN 100 MG TABS 1 tablet by mouth every other day for 2 dos es FLUCONAZOLE 90042775736 No Longer Active Tesfaye Sherman MD Active DIFLUCAN 100 MG TAB 1 tablet by mouth daily X 3 DAYS 2 FLUCONAZOLE 51102934436 No Longer Active Rj Moss DO Active MIRTAZAPINE 15 MG ORAL TABS 1/2 tab by mouth at bedtime. MIRTAZAPINE 09073213885 No Longer Active Tesfaye Sherman MD Acti ve BACTRIM DS 800-160 MG TAB 1 tab by mouth twice daily 2 TRIMETHOPRIM-SULFAMETHOXAZOLE 16906417856 No Longer Active Tesfyae Sherman MD Active PRAMIPEXOLE DIHYDROCHLORIDE 0.125 MG ORAL TABS take 1 tablet po qhs for restless leg syndrome. PRAMIPEXOLE DIHYDROCHLORIDE 12596460734 No Longer Active Tesfaye Sherman MD Active MAGNESIUM 400 MG ORAL TABS 1 tab po daily MAGNESI UM 66950042225 Active Chelsea Barba APRN Active SUDAFED 24 HOUR 240 MG ORAL [id number] 1 tab po daily PSEUDOEPHEDRINE HCL 30026466148 Active Chelsea Barba APRN A ctive CETIRIZINE HCL 5 MG TABS Take 1 tablet by mouth daily CETIRIZINE HCL 39891749277 No Longer Active Chelsea Barba APRN Acti ve TRIMETHOPRIM 100 MG TABS 1/2 qd TRIMETHOPRIM 41745211136 No Longer Active Chelsea Barba APRN Active BACTRIM DS 800-160 MG TAB 1 tab by mouth twice daily 2 TRIMETHOPRIM-SULFAMETHOXAZOLE 59741926814 No Longer Active Tesfaye Sherman MD Active BACTRIM DS 800-160 MG TAB 1 tab by mouth twice daily X 10 DAYS 2 TRIMETHOPRIM-SULFAMETHOXAZOLE 47554700769 No Longer Active Umer Sherman MD Active AMOXICILLIN 500 MG CAPS 1 cap by mouth three times a day AMOXICILLIN 91763707841 No Longer Active Adriana Arredondo Active MECLIZINE HCL 25 MG TAB one tab po qday prn dizziness MECLIZINE HCL 33166563619 Active Tesfaye Sherman MD Active B-12 1000 MCG ORAL LOZG 1 tab po daily CYANOCOBAL STANTON 56383871200 Active Tesfaye Sherman MD Active VITAMIN D3 2000 UNIT TABS 1 daily, for vitamin D deficiency 2014 CHOLECALCIFEROL 55940922063 No Longer Active Tesfaye Sherman MD Active TIZANIDINE HCL 2 MG TABS take 1-2 tablet by mouth at bedtime at 9pm PRN TIZANIDINE HCL 99935524609 Active Tesfaye Owusu Active ZITHROMAX 250 MG TAB 2 po today, then 1 po q days 2-5 AZITHROMYCIN 98616955467 No Longer Active Tesfaye Sherman MD Acti ve BACTRIM DS 800-160 MG TAB 1 tab by mouth twice daily 2 TRIMETHOPRIM-SULFAMETHOXAZOLE 11151937212 No Longer Active Tesfaye Sherman MD Active PRELIEF 340 (65-50) MG (CA-P) ORAL TABS CALCIUM GLYCEROPHOSPHATE 65447567300 Active Tesfaye Sherman MD Active [facility] NIACIN FLUSH FREE 400-100 MG CAPS 1 daily NIACIN-INOSITOL 24255026175 Active Kayla Cooper MD Active DIFLUCAN 150 MG TABS 1 qd FLUCONAZOLE 86609 490108 No Longer Active Kayla Cooper MD Active FLUTICASONE PROPIONATE 50 MCG/ACT SUSP 1 spray each nostril twice daily FLUTICASONE PROPIONATE 51872366207 Active Tesfaye armenta MD Active LOVASTATIN 20 MG TABS Take 1 tablet by mouth daily LOVASTATIN 34340226348 No Longer Active Tesfaye Sherman MD Active MELOXICAM 7.5 MG TABS 1 tablet by mouth daily M ELOXICAM 29590950991 No Longer Active Tesfaye Sherman MD Active GABAPENTIN 300 MG CAPS Take two tablets by mouth every evening GABAPENTIN 57541731474 No Longer Active Edith Burch MD Active OXYCODONE-ACETAMINOPHEN 5-325 MG TABS Take one tablet by mouth every 6 hours as needed. Max 12 tabs/day as needed OXYCODONE-ACETAMINOP HEN 48253320286 Active Tesfaye Sherman MD Active CLONAZEPAM 0.5 MG TABS Take one tablet in the morning and 1.5 table t at 7pm CLONAZEPAM 04488560427 Active Kayla Cooper MD Active BACLOFEN 10 MG TABS Take one tablet by mouth three times a day BACLOFEN 69758207908 Active Kayla Cooper MD Active GABAPENTIN 300 MG CAPS Take two tablets by mouth every evening GABAPENTIN 300 MG CAPS 014754 GABAPENTIN Inactive MELOXICAM 7.5 MG TABS 1 tablet by mouth daily MELOXICAM 7.5 MG TABS 191536 MELOXICAM Inactive LOVASTATIN 20 MG TABS Take 1 tablet by mouth daily 201 02/12/20 LOVASTATIN 20 MG TABS 695976 LOVASTATIN Inactive DIFLUCAN 150 MG TABS 1 qd DIFLUCAN 150 MG T ABS 303841 FLUCONAZOLE Inactive VITAMIN D3 2000 UNIT TABS 1 daily, for vitamin D deficiency 2014 VITAMIN D3 2000 UNIT TABS CHOLECALCIFEROL Inacti ve AMOXICILLIN 500 MG CAPS 1 cap by mouth three times a day AMOXICILLIN 500 MG CAPS 761126 AMOXICILLIN Inactive BACTRIM DS 800-160 MG TAB 1 tab by mouth twice daily X 10 DAYS 2 BACTRIM DS 800-160 MG TAB 19830105 TRIMETHOPRIM-SULFAMETH OXAZOLE Inactive TRIMETHOPRIM 100 MG TABS 1/2 qd TRIMETHOPRI M 100 MG TABS 19830102 TRIMETHOPRIM Inactive CETIRIZINE HCL 5 MG TABS Take 1 tablet by mouth daily CETIRIZINE HCL 5 MG TABS 8601188 CETIRIZINE HCL Inactive PRAMIPEXOLE DIHYDROCHLORIDE 0.125 MG ORAL TABS take 1 tablet po qhs for restless leg syndrome. PRAMIPEXOLE DIHYDROC HLORIDE 0.125 MG ORAL TABS 697666 PRAMIPEXOLE DIHYDROCHLORIDE Inactive MIRTAZAPINE 15 MG ORAL TABS 1/2 tab by mouth at bedtime. MIRTAZAPINE 15 MG ORAL TABS 392768 MIRTAZAPINE Inactive DIFLUCAN 100 MG TAB 1 tablet by mouth daily X 3 DAYS 2 DIFLUCAN 100 MG TAB 203201 FLUCONAZOLE Inactive DIFLUCAN 100 MG TABS 1 tablet by mouth every other day for 2 dos es DIFLUCAN 100 MG TABS 850253 FLUCONAZOLE Inactive CEFTIN 250 MG TAB 1 tablet twice daily x 7 days 11/19 CEFTIN 250 MG TAB 350161 CEFUROXIME AXETIL Inactive CYMBALTA 30 MG CPEP 1 cap by mouth daily with 60mg 201 05/09/11 CYMBALTA 30 MG CPEP 390680 DULOXETINE HCL Inactive CYMBALTA 60 MG CPEP Take 1 tablet by mouth daily 05/13 CYMBALTA 60 MG CPEP 104599 DULOXETINE HCL Inactive BACTRIM DS 800-160 MG TAB 1 tab by mouth twice daily 2 BACTRIM DS 800-160 MG TAB 19830105 TRIMETHOPRIM-SULFAMETHOXAZOLE Inac tive ZITHROMAX 250 MG TAB 2 po today, then 1 po q days 2-5 ZITHROMAX 250 MG TAB 5597390 AZITHROMYCIN Inactive BACTRIM DS 800-160 MG TAB [...] by mouth daily DIFLUCAN 150 MG TAB 085573 FLUCONAZOLE Inactive BACTRIM DS 800-160 MG TAB 1 tab by mouth twice daily 2 BACTRIM DS 800-160 MG TAB 19830105 TRIMETHOPRIM-SULFAMETHOXAZOLE Inac tive BACTRIM DS 800-160 MG TAB 1 tab by mouth twice daily 2 BACTRIM DS 800-160 MG TAB 19830105 TRIMETHOPRIM-SULFAMETHOXAZOLE Inac tive DIFLUCAN 100 MG TAB 1 tablet by mouth daily DIFLUCAN 100 MG TAB 609819 FLUCONAZOLE Inactive Advance Directives Directive Description Start [...] ... - Chemistry sodium, serum 144 mmol/L 507-189 1304/06/14 carbon dioxide, venous blood 29.4 mmol/L 21.0-32 .0 potassium, serum 4.4 mmol/L 3.5-5.2 chloride, serum 108 mmol/L 98-107 blood glucose 100 mg/dL 65-110 urea nitrogen, blood 9 mg/dL 7-18 creatinine, serum 0.67 mg/dL 0.55-1.30 alanine aminotransferase (SGPT), serum 24 U/L 12-78 aspartate aminotransferase (SGOT), serum 15 U/L 15-37 calcium, serum 9.3 mg/dL 8.5-10.1 bilirubin, serum, total 0.50 mg/dL 0.00-1.00 cholesterol, serum 268 mg/dL 092-939 6475/06/14 triglyceride, serum, fasting 126 mg/dL 30-200 HDL [...] mg/dL Encounters Code Encounter Date Provider Facility CPT-26244 Level 4 Est. Patient 13:56:54 CDT Tesfaye pearson MD [facility] CPT-58356 Level 4 Est. Patient 13:24:25 CDT Stephanie MERCADO [facility] CPT-87940 Level 4 Est. Patient 09:14:56 CDT Tesfaye pearson MD [facility] CPT-96326 Level 4 Est. Patient 18:40:25 TRANSLATIONAL SPECIALIST Tesfaye pearson MD [facility] CPT-59137 Level 4 Est. Patient 18:13:07 TRANSLATIONAL SPECIALIST Tesfaye pearson MD [facility] CPT-08528 Level 3 Est. Patient 10:46:32 CDT Rj cotto DO [facility] CPT-33811 Level 4 Est. Patient 20:19:25 CDT Tesfaye pearson MD [facility] CPT-67021 Level 3 Est. Patient 09:07:31 CDT Tesfaye pearson MD [facility]-19041 Level 4 Est. Patient 13:12:56 CDT Tesfaye pearson MD [facility] CPT-95114 Level 4 Est. Patient 21:24:55 TRANSLATIONAL SPECIALIST Tesfaye pearson MD [facility] CPT-42633 Level 3 Est. Patient 13:45:04 TRANSLATIONAL SPECIALIST Tesfaye pearson MD [facility] CPT-49059 Level 4 Est. Patient 13:50:45 CDT Tesfaye pearson MD [facility] CPT-54919 Level 3 Est. Patient 10:16:10 CDT Tesfaye pearson MD [facility] CPT-18141 Level 3 Est. Patient 16:36:07 TRANSLATIONAL SPECIALIST Kayla jameson MD [facility] CPT-52040 Level 4 Est. Patient 16:00:14 TRANSLATIONAL SPECIALIST Tesfaye pearson MD [facility] CPT-55953 Level 4 Est. Patient 11:02:24 TRANSLATIONAL SPECIALIST Tesfaye pearson MD [facility] CPT-85232 Level 3 Est. Patient 20:21:43 TRANSLATIONAL SPECIALIST Kayla jameson MD [facility]-83473 Level 3 Est. Patient 13:27:28 TRANSLATIONAL SPECIALIST Kayla jameson MD [facility] CPT-32986 Level 4 Est. Patient 15:57:17 TRANSLATIONAL SPECIALIST Tesfaye pearson MD [facility] CPT-69844 Level 3 New Patient 13:25:47 CDT Tesfaye kidd MD [facility] CPT-32067 Level 3 New Patient 17:22:21 CDT Kayla angel MD [facility] Procedures Code Procedure Name Date Entry Date Standard Desc ription CPT-28471 Bone Density - XRAY USE ONLY 11:43:58 CDT 2 CPT-54658 Bone Density - XRAY USE ONLY 10:05:16 CDT 2 CPT-38379 Prv Med New Pt 40-64 yrs 18:19:25 CDT 2016 CPT-35629 Foot, right, comp min 3V - XRAY USE ONLY 10:38:34 CDT CPT-G0439 Subsequent Annual Wellness Exam 13:55:04 CDT CPT-G0438 Initial Annual Wellness Exam 11:23:17 CD T CPT-J2930 Solu Medrol 125 mg (Methyl Prednisolone Sodium Succinate) 17:29:12 TRANSLATIONAL SPECIALIST CPT-53478 Abx/Therapy Injection 17:29:11 TRANSLATIONAL SPECIALIST CPT-J2930 Solu Medrol 125 mg (Methyl Prednisolone Sodium Succinate) 12:34:38 TRANSLATIONAL SPECIALIST CPT-J3420 Vitamin B12 1000mcg (Cyanocobalamin) 09:12:55 CDT CPT-J3420 Vitamin B12 1000mcg (Cyanocobalamin) 16:28:06 TRANSLATIONAL SPECIALIST CPT-62276 Venipuncture Draw Fee 08:39:53 CDT CPT-J3420 Vitamin B12 1000mcg (Cyanocobalamin) 08:46:22 CDT CPT-33778 Abx/Therapy Injection 08:46:22 CDT CPT-J3420 Vitamin B12 1000mcg (Cyanocobalamin) 08:41:26 CDT CPT-47872 Abx/Therapy Injection 08:41:26 CDT CPT-J3420 Vitamin B12 1000mcg (Cyanocobalamin) 08:57:15 CDT CPT-05468 Abx/Therapy Injection 08:57:15 CDT CPT-J3420 Vitamin B12 1000mcg (Cyanocobalamin) 10:59:03 CDT CPT-81204 Abx/Therapy Injection 10:59:03 CDT CPT-J3420 Vitamin B12 1000mcg (Cyanocobalamin) 15:05:39 CDT CPT-48192 Abx/Therapy Injection 15:05:39 CDT CPT-J3420 Vitamin B12 1000mcg (Cyanocobalamin) 13:50:45 CDT CPT-J3420 Vitamin B12 1000mcg (Cyanocobalamin) 08:48:55 CDT CPT-95061 Abx/Therapy Injection 08:48:55 CDT CPT-J3420 Vitamin B12 1000mcg (Cyanocobalamin) 09:14:54 CDT CPT-66596 Abx/Therapy Injection 09:14:54 CDT CPT-J3420 Vitamin B12 1000mcg (Cyanocobalamin) 09:06:06 CDT CPT-01650 Abx/Therapy Injection 09:06:06 CDT CPT-J3420 Vitamin B12 1000mcg (Cyanocobalamin) 09:49:14 CDT CPT-16132 Abx/Therapy Injection 09:49:14 CDT CPT-J3420 Vitamin B12 1000mcg (Cyanocobalamin) 09:10:30 TRANSLATIONAL SPECIALIST CPT-02799 Abx/Therapy Injection 09:10:30 TRANSLATIONAL SPECIALIST CPT-J3420 Vitamin B12 1000mcg (Cyanocobalamin) 09:11:07 TRANSLATIONAL SPECIALIST CPT-99864 Abx/Therapy Injection 09:11:07 TRANSLATIONAL SPECIALIST CPT-J3420 Vitamin B12 1000mcg (Cyanocobalamin) 09:57:03 TRANSLATIONAL SPECIALIST CPT-68859 Abx/Therapy Injection 09:57:03 TRANSLATIONAL SPECIALIST CPT-J3420 Vitamin B12 1000mcg (Cyanocobalamin) 09:23:21 TRANSLATIONAL SPECIALIST CPT-24160 Abx/Therapy Injection 09:23:21 TRANSLATIONAL SPECIALIST CPT-01670 Urine Dip (Floor Use Only) 20:21:44 TRANSLATIONAL SPECIALIST 201 02/12/11 CPT-40483 UA Dip Auto (Floor Use Only) 10:04:39 TRANSLATIONAL SPECIALIST 2 CPT-48315 Urine Dip (Floor Use Only) 13:27:28 TRANSLATIONAL SPECIALIST 201 02/12/01 CPT-33227 Bladder Scan 13:27:28 TRANSLATIONAL SPECIALIST CPT-97616 Abd single AP View 14:30:51 TRANSLATIONAL SPECIALIST CPT-OV Office Visit 10:15:43 CDT CPT-31606 Urine Dip (Floor Use Only) 17:22:21 CDT 201 02/09/02 CPT-81511 Bladder Scan 17:22:21 CDT
--- OUTSIDE RECORDS SUMMARY | 2020-05-05 12:40 | XMS REPORT | Clinical Summary ---
Author Author Talon, Jeri Wood Organization [employer] Address Unknown Phone Unavailable Allergies, Adverse Reactions, [...] 1 tablet by mouth daily FLU CONAZOLE [id number] No Longer Active Tesfaye Sherman MD Active BACTRIM DS 800-160 MG TAB 1 tab by mouth twice daily 2 TRIMETHOPRIM-SULFAMETHOXAZOLE [id number] No Longer Active Tesfaye Sherman MD Active ROPINIROLE HCL 0.25 MG ORAL TABS 1 TAB PO Q HS ROPINIROLE HCL 00548395504 Active Tesfaye Sherman MD Active CYMBALTA 30 MG CPEP 1 cap by mouth daily with 60mg DULOXETINE HCL 96256367999 Active Tesfaye Sherman MD Active CEFTIN 250 MG TAB 1 tablet twice daily x 7 days 11/19 CEFUROXIME AXETIL 95648330604 No Longer Active Tesfaye Sherman MD Acti ve DIFLUCAN 100 MG TABS 1 tablet by mouth every other day for 2 dos es FLUCONAZOLE 39089260882 No Longer Active Tesfaye Sherman MD Active DIFLUCAN 100 MG TAB 1 tablet by mouth daily X 3 DAYS 2 FLUCONAZOLE 10083782199 No Longer Active Rj Moss DO Active MIRTAZAPINE 15 MG ORAL TABS 1/2 tab by mouth at bedtime. MIRTAZAPINE 06723093537 No Longer Active Tesfaye Sherman MD Acti ve BACTRIM DS 800-160 MG TAB 1 tab by mouth twice daily 2 TRIMETHOPRIM-SULFAMETHOXAZOLE 22852081644 No Longer Active Tesfaye Sherman MD Active PRAMIPEXOLE DIHYDROCHLORIDE 0.125 MG ORAL TABS take 1 tablet po qhs for restless leg syndrome. PRAMIPEXOLE DIHYDROCHLORIDE 54694824429 No Longer Active Tesfaye Sherman MD Active MAGNESIUM 400 MG ORAL TABS 1 tab po daily MAGNESI 77683276478 Active Chelsea Barba APRN Active SUDAFED 24 HOUR 240 MG ORAL [id number] 1 tab po daily PSEUDOEPHEDRINE HCL 23610472770 Active Chelsea Barba APRN A ctive CETIRIZINE HCL 5 MG TABS Take 1 tablet by mouth daily CETIRIZINE HCL 69119393311 No Longer Active Chelsea Barba APRN Acti ve TRIMETHOPRIM 100 MG TABS 1/2 qd TRIMETHOPRIM 27844729394 No Longer Active Chelsea Barba APRN Active BACTRIM DS 800-160 MG TAB 1 tab by mouth twice daily 2 TRIMETHOPRIM-SULFAMETHOXAZOLE 87171857923 No Longer Active Tesfaye Sherman MD Active BACTRIM DS 800-160 MG TAB 1 tab by mouth twice daily X 10 DAYS 2 TRIMETHOPRIM-SULFAMETHOXAZOLE 63668842596 No Longer Active Umer Sherman MD Active AMOXICILLIN 500 MG CAPS 1 cap by mouth three times a day AMOXICILLIN 76109174520 No Longer Active Adriana Arredondo Active MECLIZINE HCL 25 MG TAB one tab po qday prn dizziness MECLIZINE HCL 30715669331 Active Tesfaye Sherman MD Active B-12 1000 MCG ORAL LOZG 1 tab po daily CYANOCOBAL STANTON 37813990550 Active Tesfaye Sherman MD Active VITAMIN D3 2000 UNIT TABS 1 daily, for vitamin D deficiency 2014 CHOLECALCIFEROL 51501108013 No Longer Active Tesfaye Sherman MD Active TIZANIDINE HCL 2 MG TABS take 1-2 tablet by mouth ev at bedtime at 9pm PRN TIZANIDINE HCL 76559810011 Active Tesfaye Owusu Active ZITHROMAX 250 MG TAB 2 po today, then 1 po q days 2-5 AZITHROMYCIN 18258956004 No Longer Active Tesfaye Sherman MD Acti ve BACTRIM DS 800-160 MG TAB 1 tab by mouth twice daily 2 TRIMETHOPRIM-SULFAMETHOXAZOLE 63976007181 No Longer Active Tesfaye Sherman MD Active PRELIEF 340 (65-50) MG (CA-P) ORAL TABS CALCIUM GLYCEROPHOSPHATE 35227173279 Active Tesfaye Sherman MD Active [facility] NIACIN FLUSH FREE 400-100 MG CAPS 1 daily NIACIN-INOSITOL 33673546154 Active Kayla Cooper MD Active DIFLUCAN 150 MG TABS 1 qd FLUCONAZOLE 68227 790937 No Longer Active Kayla Cooper MD Active FLUTICASONE PROPIONATE 50 MCG/ACT SUSP 1 spray each nostril twice daily FLUTICASONE PROPIONATE 77815887174 Active Tesfaye armenta MD Active LOVASTATIN 20 MG TABS Take 1 tablet by mouth daily LOVASTATIN 81830751696 No Longer Active Tesfaye Sherman MD Active MELOXICAM 7.5 MG TABS 1 tablet by mouth daily M ELOXICAM 67696337710 No Longer Active Tesfaye Sherman MD Active GABAPENTIN 300 MG CAPS Take two tablets by mouth every evening GABAPENTIN 80919014787 No Longer Active Edith Burch MD Active OXYCODONE-ACETAMINOPHEN 5-325 MG TABS Take one tablet by mouth every 6 hours as needed. Max 12 tabs/day as needed OXYCODONE-ACETAMINOP HEN 76553685378 Active Tesfaye Sherman MD Active CYMBALTA 60 MG CPEP Take 1 tablet by mouth daily D ULOXETINE HCL 83998209415 Active Kayla Cooper MD Active CLONAZEPAM 0.5 MG TABS Take one tablet in the morning and 1.5 table t at 7pm CLONAZEPAM 81804261159 Active Kayla Cooper MD Active BACLOFEN 10 MG TABS Take one tablet by mouth three times a day BACLOFEN 64927098140 Active Kayla Cooper MD Active GABAPENTIN 300 MG CAPS Take two tablets by mouth every evening GABAPENTIN 300 MG CAPS 621734 GABAPENTIN Inactive MELOXICAM 7.5 MG TABS 1 tablet by mouth daily MELOXICAM 7.5 MG TABS 789216 MELOXICAM Inactive LOVASTATIN 20 MG TABS Take 1 tablet by mouth daily 201 02/12/20 LOVASTATIN 20 MG TABS 876396 LOVASTATIN Inactive DIFLUCAN 150 MG TABS 1 qd DIFLUCAN 150 MG T ABS 465223 FLUCONAZOLE Inactive VITAMIN D3 2000 UNIT TABS 1 daily, for vitamin D deficiency 2014 VITAMIN D3 2000 UNIT TABS CHOLECALCIFEROL Inacti ve AMOXICILLIN 500 MG CAPS 1 cap by mouth three times a day AMOXICILLIN 500 MG CAPS 032707 AMOXICILLIN Inactive BACTRIM DS 800-160 MG TAB 1 tab by mouth twice daily X 10 DAYS 2 BACTRIM DS 800-160 MG TAB 19830105 TRIMETHOPRIM-SULFAMETH OXAZOLE Inactive TRIMETHOPRIM 100 MG TABS 1/2 qd TRIMETHOPRI M 100 MG TABS 19830102 TRIMETHOPRIM Inactive CETIRIZINE HCL 5 MG TABS Take 1 tablet by mouth daily CETIRIZINE HCL 5 MG TABS 0861090 CETIRIZINE HCL Inactive PRAMIPEXOLE DIHYDROCHLORIDE 0.125 MG ORAL TABS take 1 tablet po qhs for restless leg syndrome. PRAMIPEXOLE DIHYDROC HLORIDE 0.125 MG ORAL TABS 367891 PRAMIPEXOLE DIHYDROCHLORIDE Inactive MIRTAZAPINE 15 MG ORAL TABS 1/2 tab by mouth at bedtime. MIRTAZAPINE 15 MG ORAL TABS 526977 MIRTAZAPINE Inactive DIFLUCAN 100 MG TAB 1 tablet by mouth daily X 3 DAYS 2 DIFLUCAN 100 MG TAB 275868 FLUCONAZOLE Inactive DIFLUCAN 100 MG TABS 1 tablet by mouth every other day for 2 dos es DIFLUCAN 100 MG TABS 100429 FLUCONAZOLE Inactive CEFTIN 250 MG TAB 1 tablet twice daily x 7 days 11/19 CEFTIN 250 MG TAB 081187 CEFUROXIME AXETIL Inactive BACTRIM DS 800-160 MG TAB 1 tab by mouth twice daily 2 BACTRIM DS 800-160 MG TAB 19830105 TRIMETHOPRIM-SULFAMETHOXAZOLE Inac tive ZITHROMAX 250 MG TAB 2 po today, then 1 po q days 2-5 ZITHROMAX 250 MG TAB 3963977 AZITHROMYCIN Inactive BACTRIM DS 800-160 MG TAB 1 tab by mouth twice daily 2 BACTRIM DS 800-160 MG TAB 19830105 TRIMETHOPRIM-SULFAMETHOXAZOLE Inac tive BACTRIM DS 800-160 MG TAB 1 tab by mouth twice daily 2 BACTRIM DS 800-160 MG TAB 19830105 TRIMETHOPRIM-SULFAMETHOXAZOLE Inac tive BACTRIM DS 800-160 MG TAB 1 tab by mouth twice daily 2 BACTRIM DS 800-160 MG TAB 220444 TRIMETHOPRIM-SULFAMETHOXAZOLE Inac tive DIFLUCAN 150 MG TAB 1 tablet by mouth daily DIFLUCAN 150 MG TAB 120771 FLUCONAZOLE Inactive Advance Directives Directive Description Start [...] mg/dL Encounters Code Encounter Date Provider Facility CPT-[id number] Level 4 Est. Patient 18:13:07 SOLAR SALES ESTIMATOR Tesfaye pearson MD [facility] CPT-07463 Level 3 Est. Patient 10:46:32 CDT Rj cotto DO [facility] CPT-57124 Level 4 Est. Patient 20:19:25 CDT Tesfaye pearson MD [facility] CPT-93628 Level 3 Est. Patient 09:07:31 CDT Tesfaye pearson MD [facility] CPT-02473 Level 4 Est. Patient 13:12:56 CDT Tesfaye pearson MD [facility] CPT-08969 Level 4 Est. Patient 21:24:55 SOLAR SALES ESTIMATOR Tesfaye pearson MD [facility] CPT-78672 Level 3 Est. Patient 13:45:04 SOLAR SALES ESTIMATOR Tesfaye pearson MD [facility] CPT-48224 Level 4 Est. Patient 13:50:45 CDT Tesfaye pearson MD [facility] CPT-45164 Level 3 Est. Patient 10:16:10 CDT Tesfaye pearson MD [facility] CPT-02639 Level 3 Est. Patient 16:36:07 SOLAR SALES ESTIMATOR Kayla jameson MD [facility] CPT-76469 Level 4 Est. Patient 16:00:14 SOLAR SALES ESTIMATOR Tesfaye pearson MD [facility]-35511 Level 4 Est. Patient 11:02:24 SOLAR SALES ESTIMATOR Tesfaye pearson MD [facility]-96519 Level 3 Est. Patient 20:21:43 SOLAR SALES ESTIMATOR Kayla jameson MD [facility]-92245 Level 3 Est. Patient 13:27:28 SOLAR SALES ESTIMATOR Kayla jameson MD [facility] CPT-13825 Level 4 Est. Patient 15:57:17 SOLAR SALES ESTIMATOR Tesfaye pearson MD [facility] CPT-71867 Level 3 New Patient 13:25:47 CDT Tesfaye kidd MD [facility] CPT-01540 Level 3 New Patient 17:22:21 CDT Kayla angel MD [facility] Procedures Code Procedure Name Date Entry Date Standard Desc ription CPT-G0438 Initial Annual Wellness Exam 11:23:17 CD T CPT-J2930 Solu Medrol 125 mg (Methyl Prednisolone Sodium Succinate) 17:29:12 [employer]AR SALES ESTIMATOR CPT-10591 Abx/Therapy Injection 17:29:11 SOLAR SALES ESTIMATOR CPT-J2930 Solu Medrol 125 mg (Methyl Prednisolone Sodium Succinate) 12:34:38 SOLAR SALES ESTIMATOR CPT-J3420 Vitamin B12 1000mcg (Cyanocobalamin) 09:12:55 CDT CPT-J3420 Vitamin B12 1000mcg (Cyanocobalamin) 16:28:06 [employer]AR SALES ESTIMATOR CPT-15027 Venipuncture Draw Fee 08:39:53 CDT CPT-J3420 Vitamin B12 1000mcg (Cyanocobalamin) 08:46:22 CDT CPT-15494 Abx/Therapy Injection 08:46:22 CDT CPT-J3420 Vitamin B12 1000mcg (Cyanocobalamin) 08:41:26 CDT CPT-30686 Abx/Therapy Injection 08:41:26 CDT CPT-J3420 Vitamin B12 1000mcg (Cyanocobalamin) 08:57:15 CDT CPT-22499 Abx/Therapy Injection 08:57:15 CDT CPT-J3420 Vitamin B12 1000mcg (Cyanocobalamin) 10:59:03 CDT CPT-91274 Abx/Therapy Injection 10:59:03 CDT CPT-J3420 Vitamin B12 1000mcg (Cyanocobalamin) 15:05:39 CDT CPT-95657 Abx/Therapy Injection 15:05:39 CDT CPT-J3420 Vitamin B12 1000mcg (Cyanocobalamin) 13:50:45 CDT CPT-J3420 Vitamin B12 1000mcg (Cyanocobalamin) 08:48:55 CDT CPT-98826 Abx/Therapy Injection 08:48:55 CDT CPT-J3420 Vitamin B12 1000mcg (Cyanocobalamin) 09:14:54 CDT CPT-56825 Abx/Therapy Injection 09:14:54 CDT CPT-J3420 Vitamin B12 1000mcg (Cyanocobalamin) 09:06:06 CDT CPT-67752 Abx/Therapy Injection 09:06:06 CDT CPT-J3420 Vitamin B12 1000mcg (Cyanocobalamin) 09:49:14 CDT CPT-02137 Abx/Therapy Injection 09:49:14 CDT CPT-J3420 Vitamin B12 1000mcg (Cyanocobalamin) 09:10:30 SOLAR SALES ESTIMATOR CPT-15370 Abx/Therapy Injection 09:10:30 SOLAR SALES ESTIMATOR CPT-J3420 Vitamin B12 1000mcg (Cyanocobalamin) 09:11:07 SOLAR SALES ESTIMATOR CPT-14715 Abx/Therapy Injection 09:11:07 SOLAR SALES ESTIMATOR CPT-J3420 Vitamin B12 1000mcg (Cyanocobalamin) 09:57:03 SOLAR SALES ESTIMATOR CPT-82866 Abx/Therapy Injection 09:57:03 SOLAR SALES ESTIMATOR CPT-J3420 Vitamin B12 1000mcg (Cyanocobalamin) 09:23:21 SOLAR SALES ESTIMATOR CPT-77698 Abx/Therapy Injection 09:23:21 SOLAR SALES ESTIMATOR CPT-59925 Urine Dip (Floor Use Only) 20:21:44 SOLAR SALES ESTIMATOR 201 02/12/11 CPT-46170 UA Dip Auto (Floor Use Only) 10:04:39 SOLAR SALES ESTIMATOR 2 CPT-82161 Urine Dip (Floor Use Only) 13:27:28 SOLAR SALES ESTIMATOR 201 02/12/01 CPT-82504 Bladder Scan 13:27:28 [employer]AR SALES ESTIMATOR CPT-33363 Abd single AP View 14:30:51 [employer]AR SALES ESTIMATOR CPT-OV Office Visit 10:15:43 CDT CPT-86214 Urine Dip (Floor Use Only) 17:22:21 CDT 201 02/09/02 CPT-27476 Bladder Scan 17:22:21 CDT
--- OUTSIDE RECORDS SUMMARY | 2020-05-05 12:40 | XMS REPORT | Clinical Summary ---
Author Author Talon, Jeri Wood Organization [employer] Address Unknown Phone Unavailable Allergies, Adverse Reactions, [...] 6 hours as needed. Use sparingly OXYCODONE-ACETAMINOPHEN [id number] Active Tesfaye Sherman MD Active PREDNISONE 20 MG ORAL TABLET 1 tab twice daily for 3 d ay, then one daily for three days PREDNISONE 00150251932 No Longer Active eTsfaye Sherman MD Active PROAIR HFA 108 (90 BASE) MCG/ACT INHALATION AEROSOL SO LUTION 1 puff every 6 hours as needed ALBUTEROL SULFATE 46039183192 Active [place] nda Raida Active MECLIZINE HCL 25 MG ORAL TABLET one 4 times a day as needed for dizziness MECLIZINE HCL 56205439782 Active Laurence Raida Active DIFLUCAN 100 MG ORAL TABLET 1 tablet by mouth daily FLUCONAZOLE 98210780017 Active Laurence Raida Active AMOXICILLIN 500 MG ORAL CAPSULE 1 cap by mouth three times a day AMOXICILLIN 41315610452 No Longer Active Laurence Raida Acti ve VENLAFAXINE HCL 75 MG ORAL TABLET 1 am 1/2 at noon VENLAFAXINE HCL 40698038638 Active Tesfaye Sherman MD Active DIFLUCAN 100 MG ORAL TABLET 1 tablet by mouth daily 20 19/08/26 FLUCONAZOLE 00968110239 No Longer Active Tesfyae Sherman MD Acti ve BACTRIM DS 800-160 MG ORAL TABLET 1 tab by mouth twice daily 201 05/10/28 TRIMETHOPRIM-SULFAMETHOXAZOLE 16189803282 No Longer Active Fer mirna Angelica Active FOSAMAX 70 MG ORAL TABLET 1 po qweek. Take 30min prio r to first food/drink. Avoid lying down x 1 hour. ALENDRONATE SODIUM 73122287 144 No Longer Active Laurence Lopezduyen Active REPHRESH PRO-B ORAL CAPSULE 1 tablet daily LACT OBACILLUS 23757402594 Active Edith Burch MD Active CYMBALTA 60 MG ORAL CAPSULE DELAYED RELEASE PARTICLES Take 1 tablet by mouth daily DULOXETINE HCL 87877699029 No Longer Active Edith Burch MD Active CYMBALTA 30 MG ORAL CAPSULE DELAYED RELEASE PARTICLES 1 cap by mouth daily with 60mg DULOXETINE HCL 67161438635 No Longer Active Jordan Burch MD Active FISH OIL 1000 MG ORAL CAPSULE DELAYED RELEASE 1 pill b y mouth daily for cholesterol OMEGA-3 FATTY ACIDS 73296070896 Active Cee Jaffe LPN Active RED YEAST RICE 600 MG ORAL CAPSULE 1 pill by mouth daily RED YEAST RICE EXTRACT 06130402204 Active Rosa Jaffe LPN Activ e DIFLUCAN 100 MG ORAL TABLET 1 tablet by mouth daily 20 19/03/05 FLUCONAZOLE 50215804490 No Longer Active Tesfaye Sherman MD Acti ve BACTRIM DS 800-160 MG ORAL TABLET 1 tab by mouth twice daily 201 05/06/28 TRIMETHOPRIM-SULFAMETHOXAZOLE 61271416744 No Longer Active Umer Sherman MD Active BACTRIM DS 800-160 MG ORAL TABLET 1 tab by mouth twice daily 201 05/04/15 TRIMETHOPRIM-SULFAMETHOXAZOLE 46219502813 No Longer Active Umer Sherman MD Active DIFLUCAN 150 MG ORAL TABLET 1 tablet by mouth daily 20 18/09/20 FLUCONAZOLE 58426040238 No Longer Active Tesfaye Sherman MD Acti ve BACTRIM DS 800-160 MG ORAL TABLET 1 tab by mouth twice daily 201 04/13/17 TRIMETHOPRIM-SULFAMETHOXAZOLE 14443915557 No Longer Active Umer Sherman MD Active ROPINIROLE HCL 0.25 MG ORAL TABLET 1 TAB PO Q HS ROPINIROLE HCL 84455346023 Active Tesfaye Sherman MD Active CEFTIN 250 MG ORAL TABLET 1 tablet twice daily x 7 days CEFUROXIME AXETIL 83823372774 No Longer Active Tesfaye Shermna MD Active DIFLUCAN 100 MG ORAL TABLET 1 tablet by mouth every other da y for 2 doses FLUCONAZOLE 17028334730 No Longer Active Tesfaye barron MD Active DIFLUCAN 100 MG ORAL TABLET 1 tablet by mouth daily X 3 DAYS 201 04/09/01 FLUCONAZOLE 38499600603 No Longer Active Rj Lyons tive MIRTAZAPINE 15 MG ORAL TABLET 1/2 tab by mouth at bedtime. 03/13 MIRTAZAPINE 35292123855 No Longer Active Tesfaye Sherman MD Active BACTRIM DS 800-160 MG ORAL TABLET 1 tab by mouth twice daily 201 04/09/01 TRIMETHOPRIM-SULFAMETHOXAZOLE 52131183188 No Longer Active Umer Sherman MD Active PRAMIPEXOLE DIHYDROCHLORIDE 0.125 MG ORAL TABLET take 1 tablet po qhs for restless leg syndrome. PRAMIPEXOLE DIHYDROCHLORI DE 06560516094 No Longer Active Tesfaye Sherman MD Active MAGNESIUM 400 MG ORAL TABLET 1 tab po daily MAGNE SIUM 98670586085 Active Chelsea Barba APRN Active SUDAFED 24 HOUR 240 MG ORAL TABLET EXTENDED RELEASE 24 HOUR 1 tab po daily PSEUDOEPHEDRINE HCL 44014751068 Active Chelsea NAPOLES RN Active CETIRIZINE HCL 5 MG ORAL TABLET Take 1 tablet by mouth daily CETIRIZINE HCL 86921695094 No Longer Active Chelsea Barba APRN Ac tive TRIMETHOPRIM 100 MG ORAL TABLET 1/2 qd TRIM ETHOPRIM 94375984869 No Longer Active Chelsea Barba APRN Active BACTRIM DS 800-160 MG ORAL TABLET 1 tab by mouth twice daily 201 04/04/11 TRIMETHOPRIM-SULFAMETHOXAZOLE 23553278981 No Longer Active Umer Sherman MD Active BACTRIM DS 800-160 MG ORAL TABLET 1 tab by mouth twice daily X 10 DAYS TRIMETHOPRIM-SULFAMETHOXAZOLE 36574939630 No Longer Active Tesfaye Sherman MD Active AMOXICILLIN 500 MG ORAL CAPSULE 1 cap by mouth three times a day AMOXICILLIN 67023569185 No Longer Active Adriana Arredondo Active MECLIZINE HCL 25 MG ORAL TABLET one tab po qday prn dizziness 09/08 MECLIZINE HCL 13365599990 Active Tesfaye Sherman MD Active B-12 1000 MCG ORAL LOZENGE 1 tab po daily CYANO COBALAMIN 69339865455 Active Tesfaye Sherman MD Active VITAMIN D3 2000 UNIT ORAL TABLET 1 daily, for vitamin D deficien cy CHOLECALCIFEROL 89108243433 No Longer Active Tesfaye Sherman MD Active TIZANIDINE HCL 2 MG ORAL TABLET take 1-2 tablet by mo [facility] every day at bedtime at 9pm PRN TIZANIDINE HCL 88708131609 Active Tesfaye hewitt MD Active ZITHROMAX 250 MG ORAL TABLET 2 po today, then 1 po q days 2-5 20 15/02/10 AZITHROMYCIN 93653980915 No Longer Active Tesfaye Sherman MD Active BACTRIM DS 800-160 MG ORAL TABLET 1 tab by mouth twice daily 201 03/03/23 TRIMETHOPRIM-SULFAMETHOXAZOLE 02489399849 No Longer Active Umer Sherman MD Active PRELIEF 340 (65-50) MG (CA-P) ORAL TABLET CALCIUM GLYCEROPHOSPHATE 79813243447 Active Tesfaye Sherman MD Acti ve [facility] NIACIN FLUSH FREE 400-100 MG ORAL CAPSULE 1 daily NIACIN-INOSITOL 04647949245 Active Kayla Cooper MD Activ e DIFLUCAN 150 MG ORAL TABLET 1 qd FLUCONAZOL E 18329887839 No Longer Active Kayla Cooper MD Active FLUTICASONE PROPIONATE 50 MCG/ACT NASAL SUSPENSION 1 spray each nostril twice daily FLUTICASONE PROPIONATE 67179322384 Active D patricia Sherman MD Active LOVASTATIN 20 MG ORAL TABLET Take 1 tablet by mouth daily LOVASTATIN 92898004113 No Longer Active Tesfaye Sherman MD Acti ve MELOXICAM 7.5 MG ORAL TABLET 1 tablet by mouth daily 2 MELOXICAM 89582149042 No Longer Active Tesfaye Sherman MD Acti ve GABAPENTIN 300 MG ORAL CAPSULE Take two tablets by mouth every e vening GABAPENTIN 17317072608 No Longer Active Edith Burch MD A ctive CLONAZEPAM 0.5 MG ORAL TABLET Take one tablet in the m orning and 1.5 tablet at 7pm CLONAZEPAM 56625570751 Active Kayla Cooper MD Active BACLOFEN 10 MG ORAL TABLET Take one tablet by mouth three times a d ay BACLOFEN 09146497311 Active Kayla Cooper MD Active GABAPENTIN 300 MG ORAL CAPSULE Take two tablets by mouth every e vening GABAPENTIN 300 MG ORAL CAPSULE 525419 GABAPENTIN I nactive MELOXICAM 7.5 MG ORAL TABLET 1 tablet by mouth daily 2 MELOXICAM 7.5 MG ORAL TABLET 058212 MELOXICAM Inactive LOVASTATIN 20 MG ORAL TABLET Take 1 tablet by mouth daily LOVASTATIN 20 MG ORAL TABLET 448683 LOVASTATIN Inactive DIFLUCAN 150 MG ORAL TABLET 1 qd DIFLUCAN 150 MG ORAL TABLET 891995 FLUCONAZOLE Inactive VITAMIN D3 2000 UNIT ORAL TABLET 1 daily, for vitamin D deficien cy VITAMIN D3 2000 UNIT ORAL TABLET CHOLECALCIFEROL Inactive AMOXICILLIN 500 MG ORAL CAPSULE 1 cap by mouth three times a day AMOXICILLIN 500 MG ORAL CAPSULE 131745 AMOXICILLIN Inactive BACTRIM DS 800-160 MG ORAL TABLET 1 tab by mouth twice daily X 10 DAYS BACTRIM DS 800-160 MG ORAL TABLET 780746 TRIMETHOPRIM-SULFAMETHOXAZOLE Inactive TRIMETHOPRIM 100 MG ORAL TABLET 1/2 qd 7 TRIMETHOPRIM 100 MG ORAL TABLET 264132 TRIMETHOPRIM Inactive CETIRIZINE HCL 5 MG ORAL TABLET Take 1 tablet by mouth daily CETIRIZINE HCL 5 MG ORAL TABLET 2439652 CETIRIZINE HCL Inactive PRAMIPEXOLE DIHYDROCHLORIDE 0.125 MG ORAL TABLET take 1 tablet po qhs for restless leg syndrome. PRAMIPEXOLE DIHYD ROCHLORIDE 0.125 MG ORAL TABLET 428753 PRAMIPEXOLE DIHYDROCHLORIDE Inactive MIRTAZAPINE 15 MG ORAL TABLET 1/2 tab by mouth at bedtime. 03/13 MIRTAZAPINE 15 MG ORAL TABLET 499323 MIRTAZAPINE In active DIFLUCAN 100 MG ORAL TABLET 1 tablet by mouth daily X 3 DAYS 201 04/09/01 DIFLUCAN 100 MG ORAL TABLET 710872 FLUCONAZOLE Inac tive DIFLUCAN 100 MG ORAL TABLET 1 tablet by mouth every other da y for 2 doses DIFLUCAN 100 MG ORAL TABLET 979964 FLUCONAZOLE Inactive CEFTIN 250 MG ORAL TABLET 1 tablet twice daily x 7 days CEFTIN 250 MG ORAL TABLET 893179 CEFUROXIME AXETIL Inactive CYMBALTA 30 MG ORAL CAPSULE DELAYED RELEASE PARTICLES 1 cap by mouth daily with 60mg CYMBALTA 30 MG ORAL CAPSULE DELAYED RELEASE PARTICLES 930411 DULOXETINE HCL Inactive CYMBALTA 60 MG ORAL CAPSULE DELAYED RELEASE PARTICLES Take 1 tablet by mouth daily CYMBALTA 60 MG ORAL CAPSULE DELAYED RELEA SE PARTICLES 976682 DULOXETINE HCL Inactive FOSAMAX 70 MG ORAL TABLET 1 po qweek. Take 30min prio r to first food/drink. Avoid lying down x 1 hour. FOSAMAX 70 MG ORAL TA BLET 449572 ALENDRONATE SODIUM Inactive DIFLUCAN 100 MG ORAL TABLET 1 tablet by mouth daily 19/08/26 DIFLUCAN 100 MG ORAL TABLET 725297 FLUCONAZOLE Inactive PREDNISONE 20 MG ORAL TABLET 1 tab twice daily for 3 d ay, then one daily for three days PREDNISONE 20 MG ORAL TABLET 965341 PREDNIS ONE Inactive BACTRIM DS 800-160 MG ORAL TABLET 1 tab by mouth twice daily 201 03/03/23 BACTRIM DS 800-160 MG ORAL TABLET 19830105 TRIMETHOPRIM-SULFAMETHOXAZOLE Inactive ZITHROMAX 250 MG ORAL TABLET 2 po today, then 1 po q days 2-5 20 15/02/10 ZITHROMAX 250 MG ORAL TABLET 841467 AZITHROMYCIN Mayela ctive BACTRIM DS 800-160 MG ORAL TABLET 1 tab by mouth twice daily 201 04/04/11 BACTRIM DS 800-160 MG ORAL TABLET 19830105 TRIMETHOPRIM-SULFAMETHOXAZOLE Inactive BACTRIM DS 800-160 MG ORAL TABLET 1 tab by mouth twice daily 201 04/09/01 BACTRIM DS 800-160 MG ORAL TABLET 639434 TRIMETHOPRIM-SULFAMETHOXAZOLE Inactive BACTRIM DS 800-160 MG ORAL TABLET 1 tab by mouth twice daily 201 04/13/17 BACTRIM DS 800-160 MG ORAL TABLET 439629 TRIMETHOPRIM-SULFAMETHOXAZOLE Inactive DIFLUCAN 150 MG ORAL TABLET 1 tablet by mouth daily 20 18/09/20 DIFLUCAN 150 MG ORAL TABLET 19760712 FLUCONAZOLE Inactive BACTRIM DS 800-160 MG ORAL TABLET 1 tab by mouth twice daily 201 05/04/15 BACTRIM DS 800-160 MG ORAL TABLET 785532 TRIMETHOPRIM-SULFAMETHOXAZOLE Inactive BACTRIM DS 800-160 MG ORAL TABLET 1 tab by mouth twice daily 201 05/06/28 BACTRIM DS 800-160 MG ORAL TABLET 867406 TRIMETHOPRIM-SULFAMETHOXAZOLE Inactive DIFLUCAN 100 MG ORAL TABLET 1 tablet by mouth daily 20 19/03/05 DIFLUCAN 100 MG ORAL TABLET 19760711 FLUCONAZOLE Inactive BACTRIM DS 800-160 MG ORAL TABLET 1 tab by mouth twice daily 201 05/10/28 BACTRIM DS 800-160 MG ORAL TABLET 19830105 TRIMETHOPRIM-SULFAMETHOXAZOLE Inactive AMOXICILLIN 500 MG ORAL CAPSULE 1 cap by mouth three times a day AMOXICILLIN 500 MG ORAL CAPSULE 437750 AMOXICILLIN Inactive Advance Directives Directive Description Start Date PERMISSION TO SHARE DISCUSSED WITH PATIENT -- NO 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 - Chemistry sodium, serum 144 mmol/L 082-618 5847/06/14 carbon dioxide, venous blood 29.4 mmol/L 21.0-32 .0 potassium, serum 4.4 mmol/L 3.5-5.2 chloride, serum 108 mmol/L 98-107 blood glucose 100 mg/dL 65-110 urea nitrogen, blood 9 mg/dL 7-18 creatinine, serum 0.67 mg/dL 0.55-1.30 alanine aminotransferase (SGPT), serum 24 U/L 12-78 aspartate aminotransferase (SGOT), serum 15 U/L 15-37 calcium, serum 9.3 mg/dL 8.5-10.1 bilirubin, serum, total 0.50 mg/dL 0.00-1.00 cholesterol, serum 268 mg/dL 887-628 0177/06/14 triglyceride, serum, fasting 126 mg/dL 30-200 HDL cholesterol, serum 51 mg/dL 32-96 LDL cholesterol, serum 192 mg/dL 0-130 TSH 0.83 m[iU]/mL 0.36-3.74 thyroxine, serum, free 1.03 ng/dL 0.76-1.46 uric acid, serum 3.2 mg/dL 2.6-7.2 Lab Report: Comp. Metabolic Panel, [facility] - Chemistry sodium, serum 141 mmol/L 577-874 3697/01/26 carbon dioxide, venous blood 29.5 mmol/L 21.0-32 [...] mg/dL Encounters Code Encounter Date Provider Facility CPT-84170 Level 4 Est. Patient 14:44:33 RN PARALEGAL Tesfaye pearson MD [facility] CPT-38912 Level 4 Est. Patient 13:55:29 RN PARALEGAL Tesfaye pearson MD [facility] CPT-80150 Level 4 Est. Patient 17:07:34 RN PARALEGAL Tesfaye pearson MD [facility] CPT-02930 Level 4 Est. Patient 13:56:54 CDT Tesfaye pearson MD [facility] CPT-93525 Level 4 Est. Patient 13:24:25 CDT Stephanie MERCADO [facility] CPT-30986 Level 4 Est. Patient 09:14:56 CDT Tesfaye pearson MD [facility] CPT-91502 Level 4 Est. Patient 18:40:25 RN PARALEGAL Tesfaye pearson MD [facility] CPT-67398 Level 4 Est. Patient 18:13:07 RN PARALEGAL Tesfaye pearson MD [facility] CPT-78761 Level 3 Est. Patient 10:46:32 CDT Rj cotto DO [facility] CPT-13202 Level 4 Est. Patient 20:19:25 CDT Tesfaye pearson MD [facility] CPT-67028 Level 3 Est. Patient 09:07:31 CDT Tesfaye pearson MD [facility]-50092 Level 4 Est. Patient 13:12:56 CDT Tesfaye pearson MD [facility]-37255 Level 4 Est. Patient 21:24:55 RN PARALEGAL Tesfaye pearson MD [facility]-98294 Level 3 Est. Patient 13:45:04 RN PARALEGAL Tesfaye pearson MD [facility] CPT-97439 Level 4 Est. Patient 13:50:45 CDT Tesfaye pearson MD [facility] CPT-35674 Level 3 Est. Patient 10:16:10 CDT Tesfaye pearson MD [facility] CPT-70214 Level 3 Est. Patient 16:36:07 RN PARALEGAL Kayla jameson MD [facility]-25053 Level 4 Est. Patient 16:00:14 RN PARALEGAL Tesfaye pearson MD [facility]-73164 Level 4 Est. Patient 11:02:24 RN PARALEGAL Tesfaye pearson MD [facility]-89617 Level 3 Est. Patient 20:21:43 RN PARALEGAL Kayla jameson MD [facility]-77390 Level 3 Est. Patient 13:27:28 RN PARALEGAL Kayla jameson MD [facility]-90067 Level 4 Est. Patient 15:57:17 RN PARALEGAL Tesfaye pearson MD [facility] CPT-27374 Level 3 New Patient 13:25:47 CDT Tesfaye kidd MD [facility] CPT-13216 Level 3 New Patient 17:22:21 CDT Kayla angel MD [facility] Procedures Code Procedure Name Date Entry Date Standard Desc ription CPT-00197 Bone Density - XRAY USE ONLY 11:43:58 CDT 2 CPT-43326 Bone Density - XRAY USE ONLY 10:05:16 CDT 2 CPT-49467 Prv Med New Pt 40-64 yrs 18:19:25 CDT 2016 CPT-83833 Foot, right, comp min 3V - XRAY USE ONLY 10:38:34 CDT CPT-G0439 Subsequent Annual Wellness Exam 13:55:04 CDT CPT-G0438 Initial Annual Wellness Exam 11:23:17 CD T CPT-J2930 Solu Medrol 125 mg (Methyl Prednisolone Sodium Succinate) 17:29:12 RN PARALEGAL CPT-30290 Abx/Therapy Injection 17:29:11 RN PARALEGAL CPT-J2930 Solu Medrol 125 mg (Methyl Prednisolone Sodium Succinate) 12:34:38 RN PARALEGAL CPT-J3420 Vitamin B12 1000mcg (Cyanocobalamin) 09:12:55 CDT CPT-J3420 Vitamin B12 1000mcg (Cyanocobalamin) 16:28:06 RN PARALEGAL CPT-23880 Venipuncture Draw Fee 08:39:53 CDT CPT-J3420 Vitamin B12 1000mcg (Cyanocobalamin) 08:46:22 CDT CPT-12760 Abx/Therapy Injection 08:46:22 CDT CPT-J3420 Vitamin B12 1000mcg (Cyanocobalamin) 08:41:26 CDT CPT-04334 Abx/Therapy Injection 08:41:26 CDT CPT-J3420 Vitamin B12 1000mcg (Cyanocobalamin) 08:57:15 CDT CPT-48825 Abx/Therapy Injection 08:57:15 CDT CPT-J3420 Vitamin B12 1000mcg (Cyanocobalamin) 10:59:03 CDT CPT-57364 Abx/Therapy Injection 10:59:03 CDT CPT-J3420 Vitamin B12 1000mcg (Cyanocobalamin) 15:05:39 CDT CPT-29394 Abx/Therapy Injection 15:05:39 CDT CPT-J3420 Vitamin B12 1000mcg (Cyanocobalamin) 13:50:45 CDT CPT-J3420 Vitamin B12 1000mcg (Cyanocobalamin) 08:48:55 CDT CPT-16415 Abx/Therapy Injection 08:48:55 CDT CPT-J3420 Vitamin B12 1000mcg (Cyanocobalamin) 09:14:54 CDT CPT-57538 Abx/Therapy Injection 09:14:54 CDT CPT-J3420 Vitamin B12 1000mcg (Cyanocobalamin) 09:06:06 CDT CPT-10565 Abx/Therapy Injection 09:06:06 CDT CPT-J3420 Vitamin B12 1000mcg (Cyanocobalamin) 09:49:14 CDT CPT-38963 Abx/Therapy Injection 09:49:14 CDT CPT-J3420 Vitamin B12 1000mcg (Cyanocobalamin) 09:10:30 RN PARALEGAL CPT-68502 Abx/Therapy Injection 09:10:30 RN PARALEGAL CPT-J3420 Vitamin B12 1000mcg (Cyanocobalamin) 09:11:07 RN PARALEGAL CPT-67471 Abx/Therapy Injection 09:11:07 RN PARALEGAL CPT-J3420 Vitamin B12 1000mcg (Cyanocobalamin) 09:57:03 RN PARALEGAL CPT-81094 Abx/Therapy Injection 09:57:03 RN PARALEGAL CPT-J3420 Vitamin B12 1000mcg (Cyanocobalamin) 09:23:21 RN PARALEGAL CPT-26172 Abx/Therapy Injection 09:23:21 RN PARALEGAL CPT-07829 Urine Dip (Floor Use Only) 20:21:44 RN PARALEGAL 201 02/12/11 CPT-03292 UA Dip Auto (Floor Use Only) 10:04:39 RN PARALEGAL 2 CPT-28038 Urine Dip (Floor Use Only) 13:27:28 RN PARALEGAL 201 02/12/01 CPT-02311 Bladder Scan 13:27:28 RN PARALEGAL CPT-79782 Abd single AP View 14:30:51 RN PARALEGAL CPT-OV Office Visit 10:15:43 CDT CPT-04740 Urine Dip (Floor Use Only) 17:22:21 CDT 201 02/09/02 CPT-61187 Bladder Scan 17:22:21 CDT
--- OUTSIDE RECORDS SUMMARY | 2020-05-05 12:40 | XMS REPORT | Clinical Summary ---
Author Author Talon, Jeri Wood Organization [employer] Address Unknown Phone Unavailable Allergies, Adverse Reactions, Alerts Allergy Name Reaction Description Start Date Severity Status Pr ovider MIRTAZAPINE Bloating, edema, fatigue, muscle pain Moderate Active Tesfaye Sherman MD MIRAPEX caused dizziness and weakness Moderate Active Tesfaye Sherman MD NITROFURANTION Critical Active Tesfaye kidd MD XANAX Critical Active Kayla Shaw on SAVELLFer Critical Active Kayla Shaw on NUVIGIIsrael Critical Active Kayal Shaw on NAPROXEN Critical Active Kayla Edward [...] 1 tablet by mouth daily FLU CONAZOLE 49158775377 No Longer Active Tesfaye Sherman MD Active BACTRIM DS 800-160 MG TAB 1 tab by mouth twice daily 2 TRIMETHOPRIM-SULFAMETHOXAZOLE 89093019113 No Longer Active Tesfaye Sherman MD Active ROPINIROLE HCL 0.25 MG ORAL TABS 1 TAB PO Q HS ROPINIROLE HCL 89727096669 Active Tesfaye Sherman MD Active CYMBALTA 30 MG CPEP 1 cap by mouth daily with 60mg DULOXETINE HCL 99043174447 Active Tesfaye Sherman MD Active CEFTIN 250 MG TAB 1 tablet twice daily x 7 days 11/19 CEFUROXIME AXETIL 69654400994 No Longer Active Tesfaye Sherman MD Acti ve DIFLUCAN 100 MG TABS 1 tablet by mouth every other day for 2 dos es FLUCONAZOLE 90757439751 No Longer Active Tesfaye Sherman MD Active DIFLUCAN 100 MG TAB 1 tablet by mouth daily X 3 DAYS 2 FLUCONAZOLE 01962412759 No Longer Active Rj Moss DO Active MIRTAZAPINE 15 MG ORAL TABS 1/2 tab by mouth at bedtime. MIRTAZAPINE 65922646642 No Longer Active Tesfaye Sherman MD Acti ve BACTRIM DS 800-160 MG TAB 1 tab by mouth twice daily 2 TRIMETHOPRIM-SULFAMETHOXAZOLE 18371050288 No Longer Active Tesfaye Sherman MD Active PRAMIPEXOLE DIHYDROCHLORIDE 0.125 MG ORAL TABS take 1 tablet po qhs for restless leg syndrome. PRAMIPEXOLE DIHYDROCHLORIDE 67928956517 No Longer Active Tesfaye Sherman MD Active MAGNESIUM 400 MG ORAL TABS 1 tab po daily MAGNESI 07153361916 Active Chelsea Barba APRN Active SUDAFED 24 HOUR 240 MG ORAL [id number] 1 tab po daily PSEUDOEPHEDRINE HCL 38647714679 Active Chelsea Barba APRN A ctive CETIRIZINE HCL 5 MG TABS Take 1 tablet by mouth daily CETIRIZINE HCL 52901742069 No Longer Active Chelsea Barba APRN Acti ve TRIMETHOPRIM 100 MG TABS 1/2 qd TRIMETHOPRIM 71487640293 No Longer Active Chelsea Barba APRN Active BACTRIM DS 800-160 MG TAB 1 tab by mouth twice daily 2 TRIMETHOPRIM-SULFAMETHOXAZOLE 08551138527 No Longer Active Tesfaye Sherman MD Active BACTRIM DS 800-160 MG TAB 1 tab by mouth twice daily X 10 DAYS 2 TRIMETHOPRIM-SULFAMETHOXAZOLE 33957040741 No Longer Active Umer Sherman MD Active AMOXICILLIN 500 MG CAPS 1 cap by mouth three times a day AMOXICILLIN 12680153830 No Longer Active Adriana Arredondo Active MECLIZINE HCL 25 MG TAB one tab po qday prn dizziness MECLIZINE HCL 08169976889 Active Tesfaye Sherman MD Active B-12 1000 MCG ORAL LOZG 1 tab po daily CYANOCOBAL STANTON 01306501465 Active Tesfaye Sherman MD Active VITAMIN D3 2000 UNIT TABS 1 daily, for vitamin D deficiency 2014 CHOLECALCIFEROL 68484019986 No Longer Active Tesfaye Sherman MD Active TIZANIDINE HCL 2 MG TABS take 1-2 tablet by mouth ev at bedtime at 9pm PRN TIZANIDINE HCL 53859584288 Active Tesfaye Owusu Active ZITHROMAX 250 MG TAB 2 po today, then 1 po q days 2-5 AZITHROMYCIN 77099455164 No Longer Active Tesfaye Sherman MD Acti ve BACTRIM DS 800-160 MG TAB 1 tab by mouth twice daily 2 TRIMETHOPRIM-SULFAMETHOXAZOLE 76279101076 No Longer Active Tesfaye Sherman MD Active PRELIEF 340 (65-50) MG (CA-P) ORAL TABS CALCIUM GLYCEROPHOSPHATE 46809961401 Active Tesfaye Sherman MD Active [facility] NIACIN FLUSH FREE 400-100 MG CAPS 1 daily NIACIN-INOSITOL 06782235017 Active Kayla Cooper MD Active DIFLUCAN 150 MG TABS 1 qd FLUCONAZOLE 57230 126034 No Longer Active Kayla Cooper MD Active FLUTICASONE PROPIONATE 50 MCG/ACT SUSP 1 spray each nostril twice daily FLUTICASONE PROPIONATE 57609922881 Active Tesfaye armenta MD Active LOVASTATIN 20 MG TABS Take 1 tablet by mouth daily LOVASTATIN 63562135627 No Longer Active Tesfaye Sherman MD Active MELOXICAM 7.5 MG TABS 1 tablet by mouth daily M ELOXICAM 30396916327 No Longer Active Tesfaye Sherman MD Active GABAPENTIN 300 MG CAPS Take two tablets by mouth every evening GABAPENTIN 45816622474 No Longer Active Edith Burch MD Active OXYCODONE-ACETAMINOPHEN 5-325 MG TABS Take one tablet by mouth every 6 hours as needed. Max 12 tabs/day as needed OXYCODONE-ACETAMINOP HEN 39808556647 Active Tesfaye Sherman MD Active CYMBALTA 60 MG CPEP Take 1 tablet by mouth daily D ULOXETINE HCL 39341303723 Active Kayla Cooper MD Active CLONAZEPAM 0.5 MG TABS Take one tablet in the morning and 1.5 table t at 7pm CLONAZEPAM 82090504299 Active Kayla Cooper MD Active BACLOFEN 10 MG TABS Take one tablet by mouth three times a day BACLOFEN 93033775912 Active Kayla Cooper MD Active GABAPENTIN 300 MG CAPS Take two tablets by mouth every evening GABAPENTIN 300 MG CAPS 246762 GABAPENTIN Inactive MELOXICAM 7.5 MG TABS 1 tablet by mouth daily MELOXICAM 7.5 MG TABS 026347 MELOXICAM Inactive LOVASTATIN 20 MG TABS Take 1 tablet by mouth daily 201 02/12/20 LOVASTATIN 20 MG TABS 409757 LOVASTATIN Inactive DIFLUCAN 150 MG TABS 1 qd DIFLUCAN 150 MG T ABS 118789 FLUCONAZOLE Inactive VITAMIN D3 2000 UNIT TABS 1 daily, for vitamin D deficiency 2014 VITAMIN D3 2000 UNIT TABS CHOLECALCIFEROL Inacti ve AMOXICILLIN 500 MG CAPS 1 cap by mouth three times a day AMOXICILLIN 500 MG CAPS 597278 AMOXICILLIN Inactive BACTRIM DS 800-160 MG TAB 1 tab by mouth twice daily X 10 DAYS 2 BACTRIM DS 800-160 MG TAB 19830105 TRIMETHOPRIM-SULFAMETH OXAZOLE Inactive TRIMETHOPRIM 100 MG TABS 1/2 qd TRIMETHOPRI M 100 MG TABS 19830102 TRIMETHOPRIM Inactive CETIRIZINE HCL 5 MG TABS Take 1 tablet by mouth daily CETIRIZINE HCL 5 MG TABS 7310570 CETIRIZINE HCL Inactive PRAMIPEXOLE DIHYDROCHLORIDE 0.125 MG ORAL TABS take 1 tablet po qhs for restless leg syndrome. PRAMIPEXOLE DIHYDROC HLORIDE 0.125 MG ORAL TABS 223591 PRAMIPEXOLE DIHYDROCHLORIDE Inactive MIRTAZAPINE 15 MG ORAL TABS 1/2 tab by mouth at bedtime. MIRTAZAPINE 15 MG ORAL TABS 328983 MIRTAZAPINE Inactive DIFLUCAN 100 MG TAB 1 tablet by mouth daily X 3 DAYS 2 DIFLUCAN 100 MG TAB 130896 FLUCONAZOLE Inactive DIFLUCAN 100 MG TABS 1 tablet by mouth every other day for 2 dos es DIFLUCAN 100 MG TABS 914738 FLUCONAZOLE Inactive CEFTIN 250 MG TAB 1 tablet twice daily x 7 days 11/19 CEFTIN 250 MG TAB 331961 CEFUROXIME AXETIL Inactive BACTRIM DS 800-160 MG TAB 1 tab by mouth twice daily 2 BACTRIM DS 800-160 MG TAB 19830105 TRIMETHOPRIM-SULFAMETHOXAZOLE Inac tive ZITHROMAX 250 MG TAB 2 po today, then 1 po q days 2-5 ZITHROMAX 250 MG TAB 0327265 AZITHROMYCIN Inactive BACTRIM DS 800-160 MG TAB 1 tab by mouth twice daily 2 BACTRIM DS 800-160 MG TAB 19830105 TRIMETHOPRIM-SULFAMETHOXAZOLE Inac tive BACTRIM DS 800-160 MG TAB 1 tab by mouth twice daily 2 BACTRIM DS 800-160 MG TAB 19830105 TRIMETHOPRIM-SULFAMETHOXAZOLE Inac tive BACTRIM DS 800-160 MG TAB 1 tab by mouth twice daily 2 BACTRIM DS 800-160 MG TAB 849277 TRIMETHOPRIM-SULFAMETHOXAZOLE Inac tive DIFLUCAN 150 MG TAB 1 tablet by mouth daily DIFLUCAN 150 MG TAB 509281 FLUCONAZOLE Inactive Advance Directives Directive Description Start [...] mg/dL Encounters Code Encounter Date Provider Facility CPT-94001 Level 4 Est. 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 Patient 10:46:32 CDT Rj cotto DO [facility] CPT-08130 Level 4 Est. Patient 20:19:25 CDT Tesfaye pearson MD [facility] CPT-40095 Level 3 Est. Patient 09:07:31 CDT Tesfaye pearson MD [facility] CPT-33788 Level 4 Est. Patient 13:12:56 CDT Tesfaye pearson MD [facility] CPT-46078 Level 4 Est. Patient 21:24:55 GRA[employer] I FARMWORK[employer] Tesfaye pearson MD [facility] CPT-17359 Level 3 Est. Patient 13:45:04 GRA[employer] I FARMWORKER Tesfaye pearson MD [facility] CPT-77835 Level 4 Est. Patient 13:50:45 CDT Tesfaye pearson MD [facility] CPT-01898 Level 3 Est. Patient 10:16:10 CDT Tesfaye pearson MD [facility] CPT-36674 Level 3 Est. Patient 16:36:07 GRA[employer] I FARMWORK[employer] Kayla jameson MD [facility] CPT-49025 Level 4 Est. Patient 16:00:14 GRA[employer] I FARMWORKER Tesfaye pearson MD [facility]-81139 Level 4 Est. Patient 11:02:24 GRA[employer] I FARMWORKER Tesfaye pearson MD [facility]-80635 Level 3 Est. Patient 20:21:43 GRA[employer] I FARMWORKER Kayla jameson MD [facility]-67496 Level 3 Est. Patient 13:27:28 GRA[employer] I FARMWORKER Kayla jameson MD [facility] CPT-22659 Level 4 Est. Patient 15:57:17 GRA[employer] I FARMWORKER Tesfaye pearson MD [facility] CPT-05217 Level 3 New Patient 13:25:47 CDT Tesfaye kidd MD [facility] CPT-57077 Level 3 New Patient 17:22:21 CDT Kayla angel MD [facility] Procedures Code Procedure Name Date Entry Date Standard Desc ription CPT-G0438 Initial Annual Wellness Exam 11:23:17 CD T CPT-J2930 Solu Medrol 125 mg (Methyl Prednisolone Sodium Succinate) 17:29:12 GRA[employer] I FARMWORKER CPT-93991 Abx/Therapy Injection 17:29:11 GRA[employer] I FARMWORKER CPT-J2930 Solu Medrol 125 mg (Methyl Prednisolone Sodium Succinate) 12:34:38 GRA[employer] I FARMWORKER CPT-J3420 Vitamin B12 1000mcg (Cyanocobalamin) 09:12:55 CDT CPT-J3420 Vitamin B12 1000mcg (Cyanocobalamin) 16:28:06 GRA[employer] I FARMWORKER CPT-16123 Venipuncture Draw Fee 08:39:53 CDT CPT-J3420 Vitamin B12 1000mcg (Cyanocobalamin) 08:46:22 CDT CPT-62534 Abx/Therapy Injection 08:46:22 CDT CPT-J3420 Vitamin B12 1000mcg (Cyanocobalamin) 08:41:26 CDT CPT-87210 Abx/Therapy Injection 08:41:26 CDT CPT-J3420 Vitamin B12 1000mcg (Cyanocobalamin) 08:57:15 CDT CPT-87531 Abx/Therapy Injection 08:57:15 CDT CPT-J3420 Vitamin B12 1000mcg (Cyanocobalamin) 10:59:03 CDT CPT-43666 Abx/Therapy Injection 10:59:03 CDT CPT-J3420 Vitamin B12 1000mcg (Cyanocobalamin) 15:05:39 CDT CPT-77898 Abx/Therapy Injection 15:05:39 CDT CPT-J3420 Vitamin B12 1000mcg (Cyanocobalamin) 13:50:45 CDT CPT-J3420 Vitamin B12 1000mcg (Cyanocobalamin) 08:48:55 CDT CPT-29547 Abx/Therapy Injection 08:48:55 CDT CPT-J3420 Vitamin B12 1000mcg (Cyanocobalamin) 09:14:54 CDT CPT-17217 Abx/Therapy Injection 09:14:54 CDT CPT-J3420 Vitamin B12 1000mcg (Cyanocobalamin) 09:06:06 CDT CPT-10059 Abx/Therapy Injection 09:06:06 CDT CPT-J3420 Vitamin B12 1000mcg (Cyanocobalamin) 09:49:14 CDT CPT-10080 Abx/Therapy Injection 09:49:14 CDT CPT-J3420 Vitamin B12 1000mcg (Cyanocobalamin) 09:10:30 GRA[employer] I FARMWORKER CPT-37803 Abx/Therapy Injection 09:10:30 GRA[employer] I FARMWORKER CPT-J3420 Vitamin B12 1000mcg (Cyanocobalamin) 09:11:07 GRA[employer] I FARMWORKER CPT-41947 Abx/Therapy Injection 09:11:07 GRAIN I FARMWORKER CPT-J3420 Vitamin B12 1000mcg (Cyanocobalamin) 09:57:03 GRA[employer] I FARMWORKER CPT-92390 Abx/Therapy Injection 09:57:03 GRAIN I FARMWORKER CPT-J3420 Vitamin B12 1000mcg (Cyanocobalamin) 09:23:21 GRAIN I FARMWORKER CPT-15339 Abx/Therapy Injection 09:23:21 GRAIN I FARMWORKER CPT-76749 Urine Dip (Floor Use Only) 20:21:44 GRAIN I FARMWORKER 201 02/12/11 CPT-43472 UA Dip Auto (Floor Use Only) 10:04:39 GRAIN I FARMWORKER 2 CPT-42146 Urine Dip (Floor Use Only) 13:27:28 GRAIN I FARMWORKER 201 02/12/01 CPT-30873 Bladder Scan 13:27:28 GRAIN I FARMWORKER CPT-76743 Abd single AP View 14:30:51 GRAIN I FARMWORKER CPT-OV Office Visit 10:15:43 CDT CPT-95170 Urine Dip (Floor Use Only) 17:22:21 CDT 201 02/09/02 CPT-53007 Bladder Scan 17:22:21 CDT
--- OUTSIDE RECORDS SUMMARY | 2020-05-05 12:41 | XMS REPORT | Clinical Summary ---
Author Author Talon, Jeri Wood Organization [employer] Address Unknown Phone Unavailable Allergies, Adverse Reactions, [...] Generic Name NDC Status Provider Patient Instruction MIRTAZAPINE 15 MG ORAL TABS 1/2 tab by mouth at bedtime. MIRTAZAPINE [id number] No Longer Active Tesfaye Sherman MD Acti ve DIFLUCAN 100 MG TAB 1 tablet by mouth daily X 3 DAYS FLUCONAZOLE 65188835714 Active Adriana Arredondo Active BACTRIM DS 800-160 MG TAB 1 tab by mouth twice daily 2 TRIMETHOPRIM-SULFAMETHOXAZOLE 81443929514 No Longer Active Tesfaye Sherman MD Active PRAMIPEXOLE DIHYDROCHLORIDE 0.125 MG ORAL TABS take 1 tablet po qhs for restless leg syndrome. PRAMIPEXOLE DIHYDROCHLORIDE 20680539899 No Longer Active Tesfaye Sherman MD Active MAGNESIUM 400 MG ORAL TABS 1 tab po daily MAGNESI UM 37617425927 Active Chelsea Barba APRN Active SUDAFED 24 HOUR 240 MG ORAL [id number] 1 tab po daily PSEUDOEPHEDRINE HCL 13473266527 Active Chelsea Barba APRN A ctive CETIRIZINE HCL 5 MG TABS Take 1 tablet by mouth daily CETIRIZINE HCL 28380777934 No Longer Active Chelsea Barba APRN Acti ve TRIMETHOPRIM 100 MG TABS 1/2 qd TRIMETHOPRIM 84841923927 No Longer Active Chelsea Barba APRN Active BACTRIM DS 800-160 MG TAB 1 tab by mouth twice daily 2 TRIMETHOPRIM-SULFAMETHOXAZOLE 02929137133 No Longer Active Tesfaye Sherman MD Active BACTRIM DS 800-160 MG TAB 1 tab by mouth twice daily X 10 DAYS 2 TRIMETHOPRIM-SULFAMETHOXAZOLE 91182239857 No Longer Active Umer Sherman MD Active AMOXICILLIN 500 MG CAPS 1 cap by mouth three times a day AMOXICILLIN 86916272913 No Longer Active Adriana Arredondo Active MECLIZINE HCL 25 MG TAB one tab po qday prn dizziness MECLIZINE HCL 80567535499 Active Tesfaye Sherman MD Active B-12 1000 MCG ORAL LOZG 1 tab po daily CYANOCOBAL STANTON 03659472279 Active Tesfaye Sherman MD Active VITAMIN D3 2000 UNIT TABS 1 daily, for vitamin D deficiency 2014 CHOLECALCIFEROL 98002421155 No Longer Active Tesfaye Sherman MD Active TIZANIDINE HCL 2 MG TABS take 1-2 tablet by mouth at bedtime at 9pm PRN TIZANIDINE HCL 17545403062 Active Tesfaye Higgins D Active ZITHROMAX 250 MG TAB 2 po today, then 1 po q days 2-5 AZITHROMYCIN 45697961497 No Longer Active Tesfaye Sherman MD Acti ve BACTRIM DS 800-160 MG TAB 1 tab by mouth twice daily 2 TRIMETHOPRIM-SULFAMETHOXAZOLE 82030533901 No Longer Active Tesfaye Sherman MD Active PRELIEF 340 (65-50) MG (CA-P) ORAL TABS CALCIUM GLYCEROPHOSPHATE 95100219964 Active Tesfaye Sherman MD Active [facility] NIACIN FLUSH FREE 400-100 MG CAPS 1 daily NIACIN-INOSITOL 70615391592 Active Kayla Cooper MD Active DIFLUCAN 150 MG TABS 1 qd FLUCONAZOLE 12430 750176 No Longer Active Kayla Cooper MD Active FLUTICASONE PROPIONATE 50 MCG/ACT SUSP 1 spray each nostril twice daily FLUTICASONE PROPIONATE 95524885746 Active Tesfaye armenta MD Active LOVASTATIN 20 MG TABS Take 1 tablet by mouth daily LOVASTATIN 41477632963 No Longer Active Tesfaye Sherman MD Active MELOXICAM 7.5 MG TABS 1 tablet by mouth daily M ELOXICAM 32883284801 No Longer Active Tesfaye Sherman MD Active GABAPENTIN 300 MG CAPS Take two tablets by mouth every evening GABAPENTIN 87059696113 No Longer Active Edith Burch MD Active OXYCODONE-ACETAMINOPHEN 5-325 MG TABS Take one tablet by mouth every 6 hours as needed. Max 12 tabs/day as needed OXYCODONE-ACETAMINOP HEN 80306103392 Active Tesfaye Sherman MD Active CYMBALTA 60 MG CPEP Take 1 tablet by mouth daily D ULOXETINE HCL 94360132335 Active Kayla Cooper MD Active CLONAZEPAM 0.5 MG TABS Take one tablet in the morning and 1.5 table t at 7pm CLONAZEPAM 46504838912 Active Kayla Cooper MD Active BACLOFEN 10 MG TABS Take one tablet by mouth three times a day BACLOFEN 18034015201 Active J John Cooper MD Active GABAPENTIN 300 MG CAPS Take two tablets by mouth every evening GABAPENTIN 300 MG CAPS 706767 GABAPENTIN Inactive MELOXICAM 7.5 MG TABS 1 tablet by mouth daily MELOXICAM 7.5 MG TABS 133267 MELOXICAM Inactive LOVASTATIN 20 MG TABS Take 1 tablet by mouth daily 201 02/12/20 LOVASTATIN 20 MG TABS 193567 LOVASTATIN Inactive DIFLUCAN 150 MG TABS 1 qd DIFLUCAN 150 MG T ABS 522447 FLUCONAZOLE Inactive VITAMIN D3 2000 UNIT TABS 1 daily, for vitamin D deficiency 2014 VITAMIN D3 2000 UNIT TABS CHOLECALCIFEROL Inacti ve AMOXICILLIN 500 MG CAPS 1 cap by mouth three times a day AMOXICILLIN 500 MG CAPS 454441 AMOXICILLIN Inactive BACTRIM DS 800-160 MG TAB 1 tab by mouth twice daily X 10 DAYS 2 BACTRIM DS 800-160 MG TAB 392865 TRIMETHOPRIM-SULFAMETH OXAZOLE Inactive TRIMETHOPRIM 100 MG TABS 1/2 qd TRIMETHOPRI M 100 MG TABS 169975 TRIMETHOPRIM Inactive CETIRIZINE HCL 5 MG TABS Take 1 tablet by mouth daily CETIRIZINE HCL 5 MG TABS 5001122 CETIRIZINE HCL Inactive PRAMIPEXOLE DIHYDROCHLORIDE 0.125 MG ORAL TABS take 1 tablet po qhs for restless leg syndrome. PRAMIPEXOLE DIHYDROC HLORIDE 0.125 MG ORAL TABS 071272 PRAMIPEXOLE DIHYDROCHLORIDE Inactive MIRTAZAPINE 15 MG ORAL TABS 1/2 tab by mouth at bedtime. MIRTAZAPINE 15 MG ORAL TABS 810864 MIRTAZAPINE Inactive BACTRIM DS 800-160 MG TAB 1 tab by mouth twice daily 2 BACTRIM DS 800-160 MG TAB 19830105 TRIMETHOPRIM-SULFAMETHOXAZOLE Inac tive ZITHROMAX 250 MG TAB 2 po today, then 1 po q days 2-5 ZITHROMAX 250 MG TAB 3011966 AZITHROMYCIN Inactive BACTRIM DS 800-160 MG TAB [...] Range Description blood pressure, diastolic - 8462-4 87 mm[Hg] [...] mg/dL Encounters Code Encounter Date Provider Facility CPT-[id number] Level 4 Est. Patient 20:19:25 CDT Tesfaye pearson MD [facility] CPT-28357 Level 3 Est. Patient 09:07:31 CDT Tesfaye pearson MD [facility] CPT-60221 Level 4 Est. Patient 13:12:56 CDT Tefsaye pearson MD [facility] CPT-57987 Level 4 Est. 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 Patient 13:45:04 PEDIATRIC SPEECH LANGUAGE PATHOLOGIST Tesfaye pearson MD [facility] CPT-11709 Level 4 Est. Patient 13:50:45 CDT Tesfaye pearson MD [facility] CPT-06337 Level 3 Est. Patient 10:16:10 CDT Tesfaye pearson MD [facility] CPT-75731 Level 3 Est. Patient 16:36:07 PEDIATRIC SPEECH LANGUAGE PATHOLOGIST Kayla jameson MD [facility] CPT-96390 Level 4 Est. Patient 16:00:14 PEDIATRIC SPEECH LANGUAGE PATHOLOGIST Tesfaye pearson MD [facility] CPT-77656 Level 4 Est. Patient 11:02:24 PEDIATRIC SPEECH LANGUAGE PATHOLOGIST Tesfaye pearson MD [facility]-89653 Level 3 Est. Patient 20:21:43 PEDIATRIC SPEECH LANGUAGE PATHOLOGIST Kayla jameson MD [facility]-25425 Level 3 Est. Patient 13:27:28 PEDIATRIC SPEECH LANGUAGE PATHOLOGIST Kayla jameson MD [facility]-97142 Level 4 Est. Patient 15:57:17 PEDIATRIC SPEECH LANGUAGE PATHOLOGIST Tesfaye pearson MD [facility] CPT-19299 Level 3 New Patient 13:25:47 CDT Tesfaye kidd MD [facility] CPT-50904 Level 3 New Patient 17:22:21 CDT Kayla angel MD [facility] Procedures Code Procedure Name Date Entry Date Standard Desc ription CPT-G0438 Initial Annual Wellness Exam 11:23:17 CD T CPT-J2930 Solu Medrol 125 mg (Methyl Prednisolone Sodium Succinate) 17:29:12 PEDIATRIC SPEECH LANGUAGE PATHOLOGIST CPT-18322 Abx/Therapy Injection 17:29:11 PEDIATRIC SPEECH LANGUAGE PATHOLOGIST CPT-J2930 Solu Medrol 125 mg (Methyl Prednisolone Sodium Succinate) 12:34:38 PEDIATRIC SPEECH LANGUAGE PATHOLOGIST CPT-J3420 Vitamin B12 1000mcg (Cyanocobalamin) 09:12:55 CDT CPT-J3420 Vitamin B12 1000mcg (Cyanocobalamin) 16:28:06 PEDIATRIC SPEECH LANGUAGE PATHOLOGIST CPT-27857 Venipuncture Draw Fee 08:39:53 CDT CPT-J3420 Vitamin B12 1000mcg (Cyanocobalamin) 08:46:22 CDT CPT-77950 Abx/Therapy Injection 08:46:22 CDT CPT-J3420 Vitamin B12 1000mcg (Cyanocobalamin) 08:41:26 CDT CPT-80900 Abx/Therapy Injection 08:41:26 CDT CPT-J3420 Vitamin B12 1000mcg (Cyanocobalamin) 08:57:15 CDT CPT-55934 Abx/Therapy Injection 08:57:15 CDT CPT-J3420 Vitamin B12 1000mcg (Cyanocobalamin) 10:59:03 CDT CPT-72630 Abx/Therapy Injection 10:59:03 CDT CPT-J3420 Vitamin B12 1000mcg (Cyanocobalamin) 15:05:39 CDT CPT-02821 Abx/Therapy Injection 15:05:39 CDT CPT-J3420 Vitamin B12 1000mcg (Cyanocobalamin) 13:50:45 CDT CPT-J3420 Vitamin B12 1000mcg (Cyanocobalamin) 08:48:55 CDT CPT-70419 Abx/Therapy Injection 08:48:55 CDT CPT-J3420 Vitamin B12 1000mcg (Cyanocobalamin) 09:14:54 CDT CPT-40075 Abx/Therapy Injection 09:14:54 CDT CPT-J3420 Vitamin B12 1000mcg (Cyanocobalamin) 09:06:06 CDT CPT-61197 Abx/Therapy Injection 09:06:06 CDT CPT-J3420 Vitamin B12 1000mcg (Cyanocobalamin) 09:49:14 CDT CPT-31617 Abx/Therapy Injection 09:49:14 CDT CPT-J3420 Vitamin B12 1000mcg (Cyanocobalamin) 09:10:30 PEDIATRIC SPEECH LANGUAGE PATHOLOGIST CPT-93511 Abx/Therapy Injection 09:10:30 PEDIATRIC SPEECH LANGUAGE PATHOLOGIST CPT-J3420 Vitamin B12 1000mcg (Cyanocobalamin) 09:11:07 PEDIATRIC SPEECH LANGUAGE PATHOLOGIST CPT-04100 Abx/Therapy Injection 09:11:07 PEDIATRIC SPEECH LANGUAGE PATHOLOGIST CPT-J3420 Vitamin B12 1000mcg (Cyanocobalamin) 09:57:03 PEDIATRIC SPEECH LANGUAGE PATHOLOGIST CPT-86579 Abx/Therapy Injection 09:57:03 PEDIATRIC SPEECH LANGUAGE PATHOLOGIST CPT-J3420 Vitamin B12 1000mcg (Cyanocobalamin) 09:23:21 PEDIATRIC SPEECH LANGUAGE PATHOLOGIST CPT-21197 Abx/Therapy Injection 09:23:21 PEDIATRIC SPEECH LANGUAGE PATHOLOGIST CPT-39416 Urine Dip (Floor Use Only) 20:21:44 PEDIATRIC SPEECH LANGUAGE PATHOLOGIST 201 02/12/11 CPT-08509 UA Dip Auto (Floor Use Only) 10:04:39 PEDIATRIC SPEECH LANGUAGE PATHOLOGIST 2 CPT-77486 Urine Dip (Floor Use Only) 13:27:28 PEDIATRIC SPEECH LANGUAGE PATHOLOGIST 201 02/12/01 CPT-65896 Bladder Scan 13:27:28 PEDIATRIC SPEECH LANGUAGE PATHOLOGIST CPT-79786 Abd single AP View 14:30:51 PEDIATRIC SPEECH LANGUAGE PATHOLOGIST CPT-OV Office Visit 10:15:43 CDT CPT-70768 Urine Dip (Floor Use Only) 17:22:21 CDT 201 02/09/02 CPT-58997 Bladder Scan 17:22:21 CDT
--- OUTSIDE RECORDS SUMMARY | 2020-05-05 12:41 | XMS REPORT | Clinical Summary ---
Author Author Jeri Hanley Organization [employer] Address Unknown Phone Unavailable Allergies, Adverse Reactions, [...] lying down x 1 hour. ALENDRONATE SODIUM [id number] Active Tesfaye Sherman MD Active REPHRESH PRO-B ORAL CAPS 1 tablet daily LACTOBACI LLUS 99151792397 Active Edith Burch MD Active CYMBALTA 60 MG CPEP Take 1 tablet by mouth daily 1 DULOXETINE HCL 57980266723 No Longer Active Edith Burch MD Active CYMBALTA 30 MG CPEP 1 cap by mouth daily with 60mg 201 05/09/11 DULOXETINE HCL 49268613982 No Longer Active Edith Burch MD Activ e FISH OIL 1000 MG CPDR 1 pill by mouth daily for cholesterol 04/18 OMEGA- 3 FATTY ACIDS 00200492035 Active Rosa Jaffe LPN Acteh ve RED YEAST RICE 600 MG CAPS 1 pill by mouth daily RED YEAST RICE EXTRACT 48087732449 Active Rosa Jaffe LPN Activ e VENLAFAXINE HCL 37.5 MG TABS 1/4 tab po titrating up to full dose 2 VENLAFAXINE HCL 64304893595 Active Chelsea Barba APRN Activ e DIFLUCAN 100 MG TAB 1 tablet by mouth daily FLU CONAZOLE 38448212562 No Longer Active Tesfaye Sherman MD Active BACTRIM DS 800-160 MG TAB 1 tab by mouth twice daily 2 TRIMETHOPRIM-SULFAMETHOXAZOLE 11227409799 No Longer Active Tesfaye Sherman MD Active BACTRIM DS 800-160 MG TAB 1 tab by mouth twice daily 2 TRIMETHOPRIM-SULFAMETHOXAZOLE 48506468441 No Longer Active Tesfaye Sherman MD Active DIFLUCAN 150 MG TAB 1 tablet by mouth daily FLU CONAZOLE 76845163640 No Longer Active Tesfaye Sherman MD Active BACTRIM DS 800-160 MG TAB 1 tab by mouth twice daily 2 TRIMETHOPRIM-SULFAMETHOXAZOLE 80546300514 No Longer Active Tesfaye Sherman MD Active ROPINIROLE HCL 0.25 MG ORAL TABS 1 TAB PO Q HS ROPINIROLE HCL 76537159652 Active Tesfaye Sherman MD Active CEFTIN 250 MG TAB 1 tablet twice daily x 7 days 11/19 CEFUROXIME AXETIL 23730183471 No Longer Active Tesfaye Sherman MD Acti ve DIFLUCAN 100 MG TABS 1 tablet by mouth every other day for 2 dos es FLUCONAZOLE 36032095470 No Longer Active Tesfaye Sherman MD Active DIFLUCAN 100 MG TAB 1 tablet by mouth daily X 3 DAYS 2 FLUCONAZOLE 38593326392 No Longer Active Rj Moss DO Active MIRTAZAPINE 15 MG ORAL TABS 1/2 tab by mouth at bedtime. MIRTAZAPINE 11598909546 No Longer Active Tesfaye Sherman MD Acti ve BACTRIM DS 800-160 MG TAB 1 tab by mouth twice daily 2 TRIMETHOPRIM-SULFAMETHOXAZOLE 81056587450 No Longer Active Tesfaye Sherman MD Active PRAMIPEXOLE DIHYDROCHLORIDE 0.125 MG ORAL TABS take 1 tablet po qhs for restless leg syndrome. PRAMIPEXOLE DIHYDROCHLORIDE 38857014863 No Longer Active Tesfaye Sherman MD Active MAGNESIUM 400 MG ORAL TABS 1 tab po daily MAGNESI UM 59760695849 Active Chelsea Barba APRN Active SUDAFED 24 HOUR 240 MG ORAL [id number] 1 tab po daily PSEUDOEPHEDRINE HCL 12693979100 Active Chelsea Barba APRN A ctive CETIRIZINE HCL 5 MG TABS Take 1 tablet by mouth daily CETIRIZINE HCL 82444420980 No Longer Active Chelsea Barba APRN Acti ve TRIMETHOPRIM 100 MG TABS 1/2 qd TRIMETHOPRIM 23465404723 No Longer Active Chelsea Barba APRN Active BACTRIM DS 800-160 MG TAB 1 tab by mouth twice daily 2 TRIMETHOPRIM-SULFAMETHOXAZOLE 27260236972 No Longer Active Tesfaye Sherman MD Active BACTRIM DS 800-160 MG TAB 1 tab by mouth twice daily X 10 DAYS 2 TRIMETHOPRIM-SULFAMETHOXAZOLE 92148877682 No Longer Active Umer hSerman MD Active AMOXICILLIN 500 MG CAPS 1 cap by mouth three times a day AMOXICILLIN 07555024049 No Longer Active Adriana Arredondo Active MECLIZINE HCL 25 MG TAB one tab po qday prn dizziness MECLIZINE HCL 70046036497 Active Tesfaye Sherman MD Active B-12 1000 MCG ORAL LOZG 1 tab po daily CYANOCOBAL STANTON 18640676175 Active Tesfaye Sherman MD Active VITAMIN D3 2000 UNIT TABS 1 daily, for vitamin D deficiency 2014 CHOLECALCIFEROL 94733532060 No Longer Active Tesfaye Sherman MD Active TIZANIDINE HCL 2 MG TABS take 1-2 tablet by mouth at bedtime at 9pm PRN TIZANIDINE HCL 14157381832 Active Tesfaye Owusu Active ZITHROMAX 250 MG TAB 2 po today, then 1 po q days 2-5 AZITHROMYCIN 97648039421 No Longer Active Tesfaye Sherman MD Acti ve BACTRIM DS 800-160 MG TAB 1 tab by mouth twice daily 2 TRIMETHOPRIM-SULFAMETHOXAZOLE 46818575968 No Longer Active Tesfaye Sherman MD Active PRELIEF 340 (65-50) MG (CA-P) ORAL TABS CALCIUM GLYCEROPHOSPHATE 48560167704 Active Tesfaye Sherman MD Active [facility] NIACIN FLUSH FREE 400-100 MG CAPS 1 daily NIACIN-INOSITOL 06979266575 Active Kayla Cooper MD Active DIFLUCAN 150 MG TABS 1 qd FLUCONAZOLE 74648 271447 No Longer Active Kayla Cooper MD Active FLUTICASONE PROPIONATE 50 MCG/ACT SUSP 1 spray each nostril twice daily FLUTICASONE PROPIONATE 68154257740 Active Tesfaye armenta MD Active LOVASTATIN 20 MG TABS Take 1 tablet by mouth daily LOVASTATIN 57335231335 No Longer Active Tesfaye Sherman MD Active MELOXICAM 7.5 MG TABS 1 tablet by mouth daily M ELOXICAM 51583137531 No Longer Active Tesfaye Sherman MD Active GABAPENTIN 300 MG CAPS Take two tablets by mouth every evening GABAPENTIN 34328403051 No Longer Active Edith Burch MD Active OXYCODONE-ACETAMINOPHEN 5-325 MG TABS Take one tablet by mouth every 6 hours as needed. Max 12 tabs/day as needed OXYCODONE-ACETAMINOP HEN 97961736151 Active Tesfaye Sherman MD Active CLONAZEPAM 0.5 MG TABS Take one tablet in the morning and 1.5 table t at 7pm CLONAZEPAM 39688867393 Active Kayla Cooper MD Active BACLOFEN 10 MG TABS Take one tablet by mouth three times a day BACLOFEN 65690944347 Active Kayla Cooper MD Active GABAPENTIN 300 MG CAPS Take two tablets by mouth every evening GABAPENTIN 300 MG CAPS 574006 GABAPENTIN Inactive MELOXICAM 7.5 MG TABS 1 tablet by mouth daily MELOXICAM 7.5 MG TABS 393723 MELOXICAM Inactive LOVASTATIN 20 MG TABS Take 1 tablet by mouth daily 201 02/12/20 LOVASTATIN 20 MG TABS 726377 LOVASTATIN Inactive DIFLUCAN 150 MG TABS 1 qd DIFLUCAN 150 MG T ABS 304770 FLUCONAZOLE Inactive VITAMIN D3 2000 UNIT TABS 1 daily, for vitamin D deficiency 2014 VITAMIN D3 2000 UNIT TABS CHOLECALCIFEROL Inacti ve AMOXICILLIN 500 MG CAPS 1 cap by mouth three times a day AMOXICILLIN 500 MG CAPS 837090 AMOXICILLIN Inactive BACTRIM DS 800-160 MG TAB 1 tab by mouth twice daily X 10 DAYS 2 BACTRIM DS 800-160 MG TAB 19830105 TRIMETHOPRIM-SULFAMETH OXAZOLE Inactive TRIMETHOPRIM 100 MG TABS 1/2 qd TRIMETHOPRI M 100 MG TABS 410720 TRIMETHOPRIM Inactive CETIRIZINE HCL 5 MG TABS Take 1 tablet by mouth daily CETIRIZINE HCL 5 MG TABS 9154230 CETIRIZINE HCL Inactive PRAMIPEXOLE DIHYDROCHLORIDE 0.125 MG ORAL TABS take 1 tablet po qhs for restless leg syndrome. PRAMIPEXOLE DIHYDROC HLORIDE 0.125 MG ORAL TABS 202131 PRAMIPEXOLE DIHYDROCHLORIDE Inactive MIRTAZAPINE 15 MG ORAL TABS 1/2 tab by mouth at bedtime. MIRTAZAPINE 15 MG ORAL TABS 285701 MIRTAZAPINE Inactive DIFLUCAN 100 MG TAB 1 tablet by mouth daily X 3 DAYS 2 DIFLUCAN 100 MG TAB 289236 FLUCONAZOLE Inactive DIFLUCAN 100 MG TABS 1 tablet by mouth every other day for 2 dos es DIFLUCAN 100 MG TABS 901961 FLUCONAZOLE Inactive CEFTIN 250 MG TAB 1 tablet twice daily x 7 days 11/19 CEFTIN 250 MG TAB 217980 CEFUROXIME AXETIL Inactive CYMBALTA 30 MG CPEP 1 cap by mouth daily with 60mg 201 05/09/11 CYMBALTA 30 MG CPEP 595444 DULOXETINE HCL Inactive CYMBALTA 60 MG CPEP Take 1 tablet by mouth daily 05/13 CYMBALTA 60 MG CPEP 866160 DULOXETINE HCL Inactive BACTRIM DS 800-160 MG TAB 1 tab by mouth twice daily 2 BACTRIM DS 800-160 MG TAB 19830105 TRIMETHOPRIM-SULFAMETHOXAZOLE Inac tive ZITHROMAX 250 MG TAB 2 po today, then 1 po q days 2-5 ZITHROMAX 250 MG TAB 6314509 AZITHROMYCIN Inactive BACTRIM DS 800-160 MG TAB [...] by mouth daily DIFLUCAN 150 MG TAB 521408 FLUCONAZOLE Inactive BACTRIM DS 800-160 MG TAB 1 tab by mouth twice daily 2 BACTRIM DS 800-160 MG TAB 19830105 TRIMETHOPRIM-SULFAMETHOXAZOLE Inac tive BACTRIM DS 800-160 MG TAB 1 tab by mouth twice daily 2 BACTRIM DS 800-160 MG TAB 19830105 TRIMETHOPRIM-SULFAMETHOXAZOLE Inac tive DIFLUCAN 100 MG TAB 1 tablet by mouth daily DIFLUCAN 100 MG TAB 098297 FLUCONAZOLE Inactive Advance Directives Directive Description Start [...] ... - Chemistry sodium, serum 144 mmol/L 357-506 6229/06/14 carbon dioxide, venous blood 29.4 mmol/L 21.0-32 .0 potassium, serum 4.4 mmol/L 3.5-5.2 chloride, serum 108 mmol/L 98-107 blood glucose 100 mg/dL 65-110 urea nitrogen, blood 9 mg/dL 7-18 creatinine, serum 0.67 mg/dL 0.55-1.30 alanine aminotransferase (SGPT), serum 24 U/L 12-78 aspartate aminotransferase (SGOT), serum 15 U/L 15-37 calcium, serum 9.3 mg/dL 8.5-10.1 bilirubin, serum, total 0.50 mg/dL 0.00-1.00 cholesterol, serum 268 mg/dL 663-238 7200/06/14 triglyceride, serum, fasting 126 mg/dL 30-200 HDL [...] mg/dL Encounters Code Encounter Date Provider Facility CPT-91558 Level 4 Est. Patient 13:56:54 CDT Tesfaye pearson MD [facility] CPT-59180 Level 4 Est. Patient 13:24:25 CDT Stephanie MERCADO [facility] CPT-94394 Level 4 Est. Patient 09:14:56 CDT Tesfaye pearson MD [facility] CPT-44986 Level 4 Est. Patient 18:40:25 TANK PROCESSOR Tesfaye pearson MD [facility] CPT-56541 Level 4 Est. Patient 18:13:07 TANK PROCESSOR Tesfaye pearson MD [facility] CPT-83433 Level 3 Est. Patient 10:46:32 CDT Rj cotto DO [facility] CPT-43944 Level 4 Est. Patient 20:19:25 CDT Tesfaye pearson MD [facility] CPT-07266 Level 3 Est. Patient 09:07:31 CDT Tesfaye pearson MD [facility] CPT-26281 Level 4 Est. Patient 13:12:56 CDT Tesfaye pearson MD [facility] CPT-62401 Level 4 Est. Patient 21:24:55 TANK PROCESSOR Tesfaye pearson MD [facility] CPT-28116 Level 3 Est. Patient 13:45:04 TANK PROCESSOR Tesfaye pearson MD [facility] CPT-42649 Level 4 Est. Patient 13:50:45 CDT Tesfaye pearson MD [facility] CPT-75142 Level 3 Est. Patient 10:16:10 CDT Tesfaye pearson MD [facility] CPT-99043 Level 3 Est. Patient 16:36:07 TANK PROCESSOR Kayla jameson MD [facility] CPT-44332 Level 4 Est. Patient 16:00:14 TANK PROCESSOR Tesfaye pearson MD [facility] CPT-79337 Level 4 Est. Patient 11:02:24 TANK PROCESSOR Tesfaye pearson MD [facility] CPT-64564 Level 3 Est. Patient 20:21:43 TANK PROCESSOR Kayla jameson MD [facility] CPT-98093 Level 3 Est. Patient 13:27:28 TANK PROCESSOR Kayla jameson MD [facility]-55373 Level 4 Est. Patient 15:57:17 TANK PROCESSOR Tesfaye pearson MD [facility] CPT-02290 Level 3 New Patient 13:25:47 CDT Tesfaye kidd MD [facility] CPT-19733 Level 3 New Patient 17:22:21 CDT Kayla angel MD [facility] Procedures Code Procedure Name Date Entry Date Standard Desc ription CPT-71420 Bone Density - XRAY USE ONLY 11:43:58 CDT 2 CPT-19255 Bone Density - XRAY USE ONLY 10:05:16 CDT 2 CPT-60377 Prv Med New Pt 40-64 yrs 18:19:25 CDT 2016 CPT-15261 Foot, right, comp min 3V - XRAY USE ONLY 10:38:34 CDT CPT-G0439 Subsequent Annual Wellness Exam 13:55:04 CDT CPT-G0438 Initial Annual Wellness Exam 11:23:17 CD T CPT-J2930 Solu Medrol 125 mg (Methyl Prednisolone Sodium Succinate) 17:29:12 TANK PROCESSOR CPT-22845 Abx/Therapy Injection 17:29:11 TANK PROCESSOR CPT-J2930 Solu Medrol 125 mg (Methyl Prednisolone Sodium Succinate) 12:34:38 TANK PROCESSOR CPT-J3420 Vitamin B12 1000mcg (Cyanocobalamin) 09:12:55 CDT CPT-J3420 Vitamin B12 1000mcg (Cyanocobalamin) 16:28:06 TANK PROCESSOR CPT-96259 Venipuncture Draw Fee 08:39:53 CDT CPT-J3420 Vitamin B12 1000mcg (Cyanocobalamin) 08:46:22 CDT CPT-49879 Abx/Therapy Injection 08:46:22 CDT CPT-J3420 Vitamin B12 1000mcg (Cyanocobalamin) 08:41:26 CDT CPT-66024 Abx/Therapy Injection 08:41:26 CDT CPT-J3420 Vitamin B12 1000mcg (Cyanocobalamin) 08:57:15 CDT CPT-22940 Abx/Therapy Injection 08:57:15 CDT CPT-J3420 Vitamin B12 1000mcg (Cyanocobalamin) 10:59:03 CDT CPT-01672 Abx/Therapy Injection 10:59:03 CDT CPT-J3420 Vitamin B12 1000mcg (Cyanocobalamin) 15:05:39 CDT CPT-99419 Abx/Therapy Injection 15:05:39 CDT CPT-J3420 Vitamin B12 1000mcg (Cyanocobalamin) 13:50:45 CDT CPT-J3420 Vitamin B12 1000mcg (Cyanocobalamin) 08:48:55 CDT CPT-51138 Abx/Therapy Injection 08:48:55 CDT CPT-J3420 Vitamin B12 1000mcg (Cyanocobalamin) 09:14:54 CDT CPT-70382 Abx/Therapy Injection 09:14:54 CDT CPT-J3420 Vitamin B12 1000mcg (Cyanocobalamin) 09:06:06 CDT CPT-11642 Abx/Therapy Injection 09:06:06 CDT CPT-J3420 Vitamin B12 1000mcg (Cyanocobalamin) 09:49:14 CDT CPT-40152 Abx/Therapy Injection 09:49:14 CDT CPT-J3420 Vitamin B12 1000mcg (Cyanocobalamin) 09:10:30 TANK PROCESSOR CPT-53112 Abx/Therapy Injection 09:10:30 TANK PROCESSOR CPT-J3420 Vitamin B12 1000mcg (Cyanocobalamin) 09:11:07 TANK PROCESSOR CPT-50529 Abx/Therapy Injection 09:11:07 TANK PROCESSOR CPT-J3420 Vitamin B12 1000mcg (Cyanocobalamin) 09:57:03 TANK PROCESSOR CPT-84890 Abx/Therapy Injection 09:57:03 TANK PROCESSOR CPT-J3420 Vitamin B12 1000mcg (Cyanocobalamin) 09:23:21 TANK PROCESSOR CPT-65816 Abx/Therapy Injection 09:23:21 TANK PROCESSOR CPT-98255 Urine Dip (Floor Use Only) 20:21:44 TANK PROCESSOR 201 02/12/11 CPT-75507 UA Dip Auto (Floor Use Only) 10:04:39 TANK PROCESSOR 2 CPT-88153 Urine Dip (Floor Use Only) 13:27:28 TANK PROCESSOR 201 02/12/01 CPT-37321 Bladder Scan 13:27:28 TANK PROCESSOR CPT-95286 Abd single AP View 14:30:51 TANK PROCESSOR CPT-OV Office Visit 10:15:43 CDT CPT-96727 Urine Dip (Floor Use Only) 17:22:21 CDT 201 02/09/02 CPT-75985 Bladder Scan 17:22:21 CDT
--- OUTSIDE RECORDS SUMMARY | 2020-05-05 12:41 | XMS REPORT | Clinical Summary ---
Author Author Jeri Hanley Organization [employer] Address Unknown Phone Unavailable Allergies, Adverse Reactions, [...] for cholesterol 04/18 OMEGA- 3 FATTY ACIDS 52442241336 Active Rosa Jaffe LPN Acti ve RED YEAST RICE 600 MG CAPS 1 pill by mouth daily RED YEAST RICE EXTRACT 38748828086 Active Rosa Jaffe LPN Activ e VENLAFAXINE HCL 37.5 MG TABS 1/4 tab po titrating up to full dose 2 VENLAFAXINE HCL 48053912962 Active Chelsea Barba APRN Activ e DIFLUCAN 100 MG TAB 1 tablet by mouth daily FLU CONAZOLE 41005812168 No Longer Active Tesfaye Sherman MD Active BACTRIM DS 800-160 MG TAB 1 tab by mouth twice daily 2 TRIMETHOPRIM-SULFAMETHOXAZOLE 31697141135 No Longer Active Tesfaye Sherman MD Active BACTRIM DS 800-160 MG TAB 1 tab by mouth twice daily 2 TRIMETHOPRIM-SULFAMETHOXAZOLE 94367012086 No Longer Active Tesfaye Sherman MD Active DIFLUCAN 150 MG TAB 1 tablet by mouth daily FLU CONAZOLE 35359381151 No Longer Active Tesfaye Sherman MD Active BACTRIM DS 800-160 MG TAB 1 tab by mouth twice daily 2 TRIMETHOPRIM-SULFAMETHOXAZOLE 02262942271 No Longer Active Tesfaye Sherman MD Active ROPINIROLE HCL 0.25 MG ORAL TABS 1 TAB PO Q HS ROPINIROLE HCL 80739450211 Active Tesfaye Sherman MD Active CYMBALTA 30 MG CPEP 1 cap by mouth daily with 60mg DULOXETINE HCL 66992329081 Active Tesfaye Sherman MD Active CEFTIN 250 MG TAB 1 tablet twice daily x 7 days 11/19 CEFUROXIME AXETIL 35167637144 No Longer Active Tesfaye Sherman MD Acti ve DIFLUCAN 100 MG TABS 1 tablet by mouth every other day for 2 dos es FLUCONAZOLE 88773625231 No Longer Active Tesfaye Sherman MD Active DIFLUCAN 100 MG TAB 1 tablet by mouth daily X 3 DAYS 2 FLUCONAZOLE 23221532214 No Longer Active Rj Moss DO Active MIRTAZAPINE 15 MG ORAL TABS 1/2 tab by mouth at bedtime. MIRTAZAPINE 05784858073 No Longer Active Tesfaye Sherman MD Acti ve BACTRIM DS 800-160 MG TAB 1 tab by mouth twice daily 2 TRIMETHOPRIM-SULFAMETHOXAZOLE 14208909683 No Longer Active Tesfaye Sherman MD Active PRAMIPEXOLE DIHYDROCHLORIDE 0.125 MG ORAL TABS take 1 tablet po qhs for restless leg syndrome. PRAMIPEXOLE DIHYDROCHLORIDE 59255612868 No Longer Active Tesfaye Sherman MD Active MAGNESIUM 400 MG ORAL TABS 1 tab po daily MAGNESI UM 48156878604 Active Chelsea Barba APRN Active SUDAFED 24 HOUR 240 MG ORAL [id number] 1 tab po daily PSEUDOEPHEDRINE HCL 27766868757 Active Chelsea Barba APRN A ctive CETIRIZINE HCL 5 MG TABS Take 1 tablet by mouth daily CETIRIZINE HCL 89511246542 No Longer Active Chelsea Barba APRN Acti ve TRIMETHOPRIM 100 MG TABS 1/2 qd TRIMETHOPRIM 55155320249 No Longer Active Chelsea Barba APRN Active BACTRIM DS 800-160 MG TAB 1 tab by mouth twice daily 2 TRIMETHOPRIM-SULFAMETHOXAZOLE 28017912229 No Longer Active Tesfaye Sherman MD Active BACTRIM DS 800-160 MG TAB 1 tab by mouth twice daily X 10 DAYS 2 TRIMETHOPRIM-SULFAMETHOXAZOLE 78455164773 No Longer Active Umer Sherman MD Active AMOXICILLIN 500 MG CAPS 1 cap by mouth three times a day AMOXICILLIN 64324866353 No Longer Active Adriana Arnulfo Active MECLIZINE HCL 25 MG TAB one tab po qday prn dizziness MECLIZINE HCL 59629701587 Active Tesfaye Sherman MD Active B-12 1000 MCG ORAL LOZG 1 tab po daily CYANOCOBAL STANTON 84056244333 Active Tesfaye Sherman MD Active VITAMIN D3 2000 UNIT TABS 1 daily, for vitamin D deficiency 2014 CHOLECALCIFEROL 91978265077 No Longer Active Tesfaye Sherman MD Active TIZANIDINE HCL 2 MG TABS take 1-2 tablet by mouth ev day at bedtime at 9pm PRN TIZANIDINE HCL 55765308251 Active Tesfaye Owusu Active ZITHROMAX 250 MG TAB 2 po today, then 1 po q days 2-5 AZITHROMYCIN 20169429174 No Longer Active Tesfaye Sherman MD Acti ve BACTRIM DS 800-160 MG TAB 1 tab by mouth twice daily 2 TRIMETHOPRIM-SULFAMETHOXAZOLE 38768326529 No Longer Active Tesfaye Sherman MD Active PRELIEF 340 (65-50) MG (CA-P) ORAL TABS CALCIUM GLYCEROPHOSPHATE 58747315148 Active Tesfaye Sherman MD Active [facility] NIACIN FLUSH FREE 400-100 MG CAPS 1 daily NIACIN-INOSITOL 95512935118 Active Kayla Cooper MD Active DIFLUCAN 150 MG TABS 1 qd FLUCONAZOLE 07191 511536 No Longer Active Kayla Cooper MD Active FLUTICASONE PROPIONATE 50 MCG/ACT SUSP 1 spray each nostril twice daily FLUTICASONE PROPIONATE 94422173337 Active Tesfaye armenta MD Active LOVASTATIN 20 MG TABS Take 1 tablet by mouth daily LOVASTATIN 96451034588 No Longer Active Tesfaye Sherman MD Active MELOXICAM 7.5 MG TABS 1 tablet by mouth daily M ELOXICAM 66643359703 No Longer Active Tesfaye Sherman MD Active GABAPENTIN 300 MG CAPS Take two tablets by mouth every evening GABAPENTIN 03676575426 No Longer Active Edith Burch MD Active OXYCODONE-ACETAMINOPHEN 5-325 MG TABS Take one tablet by mouth every 6 hours as needed. Max 12 tabs/day as needed OXYCODONE-ACETAMINOP HEN 24842278627 Active Tesfaye Sherman MD Active CYMBALTA 60 MG CPEP Take 1 tablet by mouth daily D ULOXETINE HCL 48422891110 Active Kayla Cooper MD Active CLONAZEPAM 0.5 MG TABS Take one tablet in the morning and 1.5 table t at 7pm CLONAZEPAM 58536435606 Active Kayla Cooper MD Active BACLOFEN 10 MG TABS Take one tablet by mouth three times a day BACLOFEN 57477338436 Active Kayla Cooper MD Active GABAPENTIN 300 MG CAPS Take two tablets by mouth every evening GABAPENTIN 300 MG CAPS 243553 GABAPENTIN Inactive MELOXICAM 7.5 MG TABS 1 tablet by mouth daily MELOXICAM 7.5 MG TABS 149799 MELOXICAM Inactive LOVASTATIN 20 MG TABS Take 1 tablet by mouth daily 201 02/12/20 LOVASTATIN 20 MG TABS 969426 LOVASTATIN Inactive DIFLUCAN 150 MG TABS 1 qd DIFLUCAN 150 MG T ABS 770285 FLUCONAZOLE Inactive VITAMIN D3 2000 UNIT TABS 1 daily, for vitamin D deficiency 2014 VITAMIN D3 2000 UNIT TABS CHOLECALCIFEROL Inacti ve AMOXICILLIN 500 MG CAPS 1 cap by mouth three times a day AMOXICILLIN 500 MG CAPS 790677 AMOXICILLIN Inactive BACTRIM DS 800-160 MG TAB 1 tab by mouth twice daily X 10 DAYS 2 BACTRIM DS 800-160 MG TAB 19830105 TRIMETHOPRIM-SULFAMETH OXAZOLE Inactive TRIMETHOPRIM 100 MG TABS 1/2 qd TRIMETHOPRI M 100 MG TABS 19830102 TRIMETHOPRIM Inactive CETIRIZINE HCL 5 MG TABS Take 1 tablet by mouth daily CETIRIZINE HCL 5 MG TABS 6067136 CETIRIZINE HCL Inactive PRAMIPEXOLE DIHYDROCHLORIDE 0.125 MG ORAL TABS take 1 tablet po qhs for restless leg syndrome. PRAMIPEXOLE DIHYDROC HLORIDE 0.125 MG ORAL TABS 008234 PRAMIPEXOLE DIHYDROCHLORIDE Inactive MIRTAZAPINE 15 MG ORAL TABS 1/2 tab by mouth at bedtime. MIRTAZAPINE 15 MG ORAL TABS 918027 MIRTAZAPINE Inactive DIFLUCAN 100 MG TAB 1 tablet by mouth daily X 3 DAYS 2 DIFLUCAN 100 MG TAB 385345 FLUCONAZOLE Inactive DIFLUCAN 100 MG TABS 1 tablet by mouth every other day for 2 dos es DIFLUCAN 100 MG TABS 816926 FLUCONAZOLE Inactive CEFTIN 250 MG TAB 1 tablet twice daily x 7 days 11/19 CEFTIN 250 MG TAB 641577 CEFUROXIME AXETIL Inactive BACTRIM DS 800-160 MG TAB 1 tab by mouth twice daily 2 BACTRIM DS 800-160 MG TAB 19830105 TRIMETHOPRIM-SULFAMETHOXAZOLE Inac tive ZITHROMAX 250 MG TAB 2 po today, then 1 po q days 2-5 ZITHROMAX 250 MG TAB 1984952 AZITHROMYCIN Inactive BACTRIM DS 800-160 MG TAB [...] ... - Chemistry sodium, serum 144 mmol/L 913-042 0795/06/14 carbon dioxide, venous blood 29.4 mmol/L 21.0-32 .0 potassium, serum 4.4 mmol/L 3.5-5.2 chloride, serum 108 mmol/L 98-107 blood glucose 100 mg/dL 65-110 urea nitrogen, blood 9 mg/dL 7-18 creatinine, serum 0.67 mg/dL 0.55-1.30 alanine aminotransferase (SGPT), serum 24 U/L 12-78 aspartate aminotransferase (SGOT), serum 15 U/L 15-37 calcium, serum 9.3 mg/dL 8.5-10.1 bilirubin, serum, total 0.50 mg/dL 0.00-1.00 cholesterol, serum 268 mg/dL 574-744 8938/06/14 triglyceride, serum, fasting 126 mg/dL 30-200 HDL [...] mg/dL Encounters Code Encounter Date Provider Facility CPT-03496 Level 4 Est. Patient 13:24:25 CDT Stephanie MERCADO [facility] CPT-93928 Level 4 Est. Patient 09:14:56 CDT Tesfaye pearson MD [facility] CPT-68860 Level 4 Est. Patient 18:40:25 WAREHOUSER Tesfaye pearson MD [facility] CPT-03343 Level 4 Est. Patient 18:13:07 WAREHOUSER Tesfaye pearson MD [facility] CPT-55803 Level 3 Est. Patient 10:46:32 CDT Rj cotto DO [facility] CPT-03443 Level 4 Est. Patient 20:19:25 CDT Tesfaye pearson MD [facility] CPT-59364 Level 3 Est. Patient 09:07:31 CDT Tesfaye pearson MD [facility] CPT-30590 Level 4 Est. Patient 13:12:56 CDT Tesfaye pearson MD [facility] CPT-32284 Level 4 Est. Patient 21:24:55 WAREHOUSER Tesfaye pearson MD [facility] CPT-99281 Level 3 Est. Patient 13:45:04 WAREHOUSER Tesfaye pearson MD [facility] CPT-87184 Level 4 Est. Patient 13:50:45 CDT Tesfaye pearson MD [facility] CPT-05655 Level 3 Est. Patient 10:16:10 CDT Tesfaye pearson MD [facility] CPT-97892 Level 3 Est. Patient 16:36:07 WAREHOUSER Kayla jameson MD [facility] CPT-10311 Level 4 Est. Patient 16:00:14 WAREHOUSER Tesfaye pearson MD [facility] CPT-18370 Level 4 Est. Patient 11:02:24 WAREHOUSER Tesfaye pearson MD [facility] CPT-18011 Level 3 Est. Patient 20:21:43 WAREHOUSER Kayla jameson MD [facility] CPT-77769 Level 3 Est. Patient 13:27:28 WAREHOUSER Kayla jameson MD [facility] CPT-65560 Level 4 Est. Patient 15:57:17 WAREHOUSER Tesfaye pearson MD [facility] CPT-14003 Level 3 New Patient 13:25:47 CDT Tesfaye kidd MD [facility] CPT-14688 Level 3 New Patient 17:22:21 CDT J John angel MD [facility] Procedures Code Procedure Name Date Entry Date Standard Desc ription CPT-09322 Foot, right, comp min 3V - XRAY USE ONLY 10:38:34 CDT CPT-G0439 Subsequent Annual Wellness Exam 13:55:04 CDT CPT-G0438 Initial Annual Wellness Exam 11:23:17 CD T CPT-J2930 Solu Medrol 125 mg (Methyl Prednisolone Sodium Succinate) 17:29:12 WAREHOUSER CPT-97342 Abx/Therapy Injection 17:29:11 WAREHOUSER CPT-J2930 Solu Medrol 125 mg (Methyl Prednisolone Sodium Succinate) 12:34:38 WAREHOUSER CPT-J3420 Vitamin B12 1000mcg (Cyanocobalamin) 09:12:55 CDT CPT-J3420 Vitamin B12 1000mcg (Cyanocobalamin) 16:28:06 WAREHOUSER CPT-79274 Venipuncture Draw Fee 08:39:53 CDT CPT-J3420 Vitamin B12 1000mcg (Cyanocobalamin) 08:46:22 CDT CPT-67997 Abx/Therapy Injection 08:46:22 CDT CPT-J3420 Vitamin B12 1000mcg (Cyanocobalamin) 08:41:26 CDT CPT-72867 Abx/Therapy Injection 08:41:26 CDT CPT-J3420 Vitamin B12 1000mcg (Cyanocobalamin) 08:57:15 CDT CPT-05919 Abx/Therapy Injection 08:57:15 CDT CPT-J3420 Vitamin B12 1000mcg (Cyanocobalamin) 10:59:03 CDT CPT-47521 Abx/Therapy Injection 10:59:03 CDT CPT-J3420 Vitamin B12 1000mcg (Cyanocobalamin) 15:05:39 CDT CPT-70166 Abx/Therapy Injection 15:05:39 CDT CPT-J3420 Vitamin B12 1000mcg (Cyanocobalamin) 13:50:45 CDT CPT-J3420 Vitamin B12 1000mcg (Cyanocobalamin) 08:48:55 CDT CPT-92664 Abx/Therapy Injection 08:48:55 CDT CPT-J3420 Vitamin B12 1000mcg (Cyanocobalamin) 09:14:54 CDT CPT-52219 Abx/Therapy Injection 09:14:54 CDT CPT-J3420 Vitamin B12 1000mcg (Cyanocobalamin) 09:06:06 CDT CPT-02093 Abx/Therapy Injection 09:06:06 CDT CPT-J3420 Vitamin B12 1000mcg (Cyanocobalamin) 09:49:14 CDT CPT-98977 Abx/Therapy Injection 09:49:14 CDT CPT-J3420 Vitamin B12 1000mcg (Cyanocobalamin) 09:10:30 WAREHOUSER CPT-60624 Abx/Therapy Injection 09:10:30 WAREHOUSER CPT-J3420 Vitamin B12 1000mcg (Cyanocobalamin) 09:11:07 WAREHOUSER CPT-09509 Abx/Therapy Injection 09:11:07 WAREHOUSER CPT-J3420 Vitamin B12 1000mcg (Cyanocobalamin) 09:57:03 WAREHOUSER CPT-37493 Abx/Therapy Injection 09:57:03 WAREHOUSER CPT-J3420 Vitamin B12 1000mcg (Cyanocobalamin) 09:23:21 WAREHOUSER CPT-38980 Abx/Therapy Injection 09:23:21 WAREHOUSER CPT-30216 Urine Dip (Floor Use Only) 20:21:44 WAREHOUSER 201 02/12/11 CPT-47674 UA Dip Auto (Floor Use Only) 10:04:39 WAREHOUSER 2 CPT-38718 Urine Dip (Floor Use Only) 13:27:28 WAREHOUSER 201 02/12/01 CPT-03241 Bladder Scan 13:27:28 WAREHOUSER CPT-71086 Abd single AP View 14:30:51 WAREHOUSER CPT-OV Office Visit 10:15:43 CDT CPT-64190 Urine Dip (Floor Use Only) 17:22:21 CDT 201 02/09/02 CPT-43483 Bladder Scan 17:22:21 CDT
--- OUTSIDE RECORDS SUMMARY | 2020-05-05 12:42 | XMS REPORT | Clinical Summary ---
Author Author Talon, Jeri Wood Organization [facility] Address Unknown Phone Unavailable Allergies, [...] then 1 po q days 2-5 AZITHROMYCIN 88891568088 No Longer Active Tesfaye Sherman MD Acti ve BACTRIM DS 800-160 MG TAB 1 tab by mouth twice daily 2 TRIMETHOPRIM-SULFAMETHOXAZOLE 14773409936 No Longer Active Tesfaye Sherman MD Active VITAMIN D3 2000 UNIT TABS 1 daily, for vitamin D deficiency CHOLECALCIFEROL 25687803621 Active Tesfaye Sherman MD Activ e PRELIEF 340 (65-50) MG (CA-P) ORAL TABS CALCIUM GLYCEROPHOSPHATE 82852075786 Active Tesfaye Sherman MD Active [facility] NIACIN FLUSH FREE 400-100 MG CAPS 1 daily NIACIN-INOSITOL 64148800122 Active Kayla Cooper MD Active DIFLUCAN 150 MG TABS 1 qd FLUCONAZOLE 77180 084935 No Longer Active Kayla Cooper MD Active FLUTICASONE PROPIONATE 50 MCG/ACT SUSP 1 spray each nostril twice daily FLUTICASONE PROPIONATE 83988736981 Active Tesfaye armenta MD Active LOVASTATIN 20 MG TABS Take 1 tablet by mouth daily LOVASTATIN 81710286931 No Longer Active Tesfaye Sherman MD Active MELOXICAM 7.5 MG TABS 1 tablet by mouth daily M ELOXICAM 71752082141 No Longer Active Tesfaye Sherman MD Active GABAPENTIN 300 MG CAPS Take two tablets by mouth every evening GABAPENTIN 36051450771 No Longer Active Edith Burch MD Active TRIMETHOPRIM 100 MG TABS 1/2 qd TRIMETHOPRIM 8370463 3001 Active Kayla Cooper MD Active TIZANIDINE HCL 2 MG TABS take one tablet by mouth every day at bedtime at 9pm TIZANIDINE HCL 70565318244 Active Kayla Cooper MD Active OXYCODONE-ACETAMINOPHEN 5-325 MG TABS Take one tablet by mouth every 6 hours as needed. Max 12 tabs/day as needed OXYCODONE-ACETAMINOP HEN 96089244713 Active Tesfaye Sherman MD Active CYMBALTA 60 MG CPEP Take 1 tablet by mouth daily D ULOXETINE HCL 07396122303 Active Kayla Cooper MD Active CLONAZEPAM 0.5 MG TABS Take one tablet in the morning and 1.5 table t at 7pm CLONAZEPAM 50197839799 Active Kayla Cooper MD Active CETIRIZINE HCL 5 MG TABS Take 1 tablet by mouth daily CETIRIZINE HCL 99650994759 Active Kayla Cooper MD Active BACLOFEN 10 MG TABS Take one tablet by mouth three times a day BACLOFEN 31084084061 Active Kayla Cooper MD Active GABAPENTIN 300 MG CAPS Take two tablets by mouth every evening GABAPENTIN 300 MG CAPS 410252 GABAPENTIN Inactive MELOXICAM 7.5 MG TABS 1 tablet by mouth daily MELOXICAM 7.5 MG TABS 893024 MELOXICAM Inactive LOVASTATIN 20 MG TABS Take 1 tablet by mouth daily 201 02/12/20 LOVASTATIN 20 MG TABS 014876 LOVASTATIN Inactive DIFLUCAN 150 MG TABS 1 qd DIFLUCAN 150 MG T ABS 296458 FLUCONAZOLE Inactive BACTRIM DS 800-160 MG TAB 1 tab by mouth twice daily 2 BACTRIM DS 800-160 MG TAB TRIMETHOPRIM-SULFAMETHOXAZOLE Inac tive ZITHROMAX 250 MG TAB 2 po today, then 1 po q days 2-5 ZITHROMAX 250 MG TAB 4046427 AZITHROMYCIN Inactive Advance Directives Directive Description Start [...] Panel - Chemistry sodium, serum 138 mmol/L 555-771 0717/10/20 creatinine, serum 0.70 mg/dL 0.60-1.30 alanine aminotransferase (SGPT), serum 15 U/L 12-78 aspartate aminotransferase (SGOT), serum 17 U/L 15-37 alkaline phosphatase, serum 90 U/L 50-136 calcium, serum 9.8 mg/dL 8.5-10.1 bilirubin, serum, total 0.90 mg/dL 0.00-1.00 cholesterol, serum 237 mg/dL 113-666 6288/10/20 triglyceride, serum, fasting 71 mg/dL 30-200 HDL [...] Panel - Chemistry cholesterol, serum 221 mg/dL 011-721 7207/01/23 triglyceride, serum, fasting 81 mg/dL 30-200 HDL cholesterol, serum 55 mg/dL 32-96 LDL cholesterol, serum 150 mg/dL 0-130 Lab Report: UADIP W/MICRO, AUTO - Chemis try protein, total urine random Negative mg/dL Negative RBC, urine, dipstick Trace Negative RBC, urine, dipstick Negative Negative protein, total urine random Negative mg/dL Negative Lab Report: UADIP W/MICRO, AUTO - Urinal ysis ketones, urine, by test strip Negative Negati ve bilirubin, urine Negative Negative urobilinogen, urine, semiquantitative (dipstick) 0.2 Normal leukocyte esterase, urine, by dipstick Negative Negative nitrite, urine, semiquantitative Negative Neg ative urobilinogen, urine, semiquantitative (dipstick) 0.2 Normal leukocyte esterase, urine, by dipstick Negative Negative nitrite, urine, semiquantitative Negative Neg ative pH, urine, semiquantitative 6.5 5.0-8.5 specific gravity, urine 1.010 1.000-1.030 appearance, urine Clear Clear urine color Yellow Colorless;Lightyellow;St raw;Yellow glucose, urine, semiquantitative Negative Neg ative glucose, urine, semiquantitative Negative Neg ative urine color Yellow Colorless;Lightyellow;St raw;Yellow specific gravity, urine 1.010 1.000-1.030 ketones, urine, by test strip Negative Negati ve bilirubin, urine Negative Negative pH, urine, semiquantitative 8.0 5.0-8.5 appearance, urine Clear Clear Office Visit: 1 month recheck - Chemistr [...] negative Encounters Code Encounter Date Provider Facility CPT-11571 Level 3 Est. Patient 10:16:10 CDT Tesfaye pearson MD [facility] CPT-98027 Level 3 Est. Patient 16:36:07 MINUTE CLERK Kayla jameson MD [facility] CPT-70971 Level 4 Est. Patient 16:00:14 MINUTE CLERK Tesfaye pearson MD [facility] CPT-04746 Level 4 Est. Patient 11:02:24 MINUTE CLERK Tesfaye pearson MD [facility] CPT-12956 Level 3 Est. Patient 20:21:43 MINUTE CLERK Kayla jameson MD [facility] CPT-86505 Level 3 Est. Patient 13:27:28 MINUTE CLERK Kayla jameson MD [facility] CPT-17264 Level 4 Est. Patient 15:57:17 MINUTE CLERK Tesfaye pearson MD [facility] CPT-72192 Level 3 New Patient 13:25:47 CDT Tesfaye kidd MD [facility] CPT-25004 Level 3 New Patient 17:22:21 CDT Kayla angel MD [facility] Procedures Code Procedure Name Date Entry Date Standard Desc ription CPT-J3420 Vitamin B12 1000mcg (Cyanocobalamin) 09:14:54 CDT CPT-33686 Abx/Therapy Injection 09:14:54 CDT CPT-J3420 Vitamin B12 1000mcg (Cyanocobalamin) 09:06:06 CDT CPT-71857 Abx/Therapy Injection 09:06:06 CDT CPT-J3420 Vitamin B12 1000mcg (Cyanocobalamin) 09:49:14 CDT CPT-42905 Abx/Therapy Injection 09:49:14 CDT CPT-J3420 Vitamin B12 1000mcg (Cyanocobalamin) 09:10:30 MINUTE CLERK CPT-14848 Abx/Therapy Injection 09:10:30 MINUTE CLERK CPT-J3420 Vitamin B12 1000mcg (Cyanocobalamin) 09:11:07 MINUTE CLERK CPT-54279 Abx/Therapy Injection 09:11:07 MINUTE CLERK CPT-J3420 Vitamin B12 1000mcg (Cyanocobalamin) 09:57:03 MINUTE CLERK CPT-11843 Abx/Therapy Injection 09:57:03 MINUTE CLERK CPT-J3420 Vitamin B12 1000mcg (Cyanocobalamin) 09:23:21 MINUTE CLERK CPT-70088 Abx/Therapy Injection 09:23:21 MINUTE CLERK CPT-58301 Urine Dip (Floor Use Only) 20:21:44 MINUTE CLERK 201 02/12/11 CPT-84702 UA Dip Auto (Floor Use Only) 10:04:39 MINUTE CLERK 2 CPT-54285 Urine Dip (Floor Use Only) 13:27:28 MINUTE CLERK 201 02/12/01 CPT-56409 Bladder Scan 13:27:28 MINUTE CLERK CPT-44856 Abd single AP View 14:30:51 MINUTE CLERK CPT-OV Office Visit 10:15:43 CDT CPT-11288 Urine Dip (Floor Use Only) 17:22:21 CDT 201 02/09/02 CPT-09569 Bladder Scan 17:22:21 CDT
--- OUTSIDE RECORDS SUMMARY | 2020-05-05 12:42 | XMS REPORT | Clinical Summary ---
Author Author Talon, Jeri Wood Organization [facility] Address Unknown Phone Unavailable Allergies, Adverse Reactions, [...] daily, for vitamin D deficiency 2014 CHOLECALCIFEROL 16182488974 No Longer Active Tesfaye Sherman MD Active TIZANIDINE HCL 2 MG TABS take 1-2 tablet by mouth at bedtime at 9pm PRN TIZANIDINE HCL 02125832935 Active Tesfaye Owusu Active ZITHROMAX 250 MG TAB 2 po today, then 1 po q days 2-5 AZITHROMYCIN 89951293678 No Longer Active Tesfaye Sherman MD Acti ve BACTRIM DS 800-160 MG TAB 1 tab by mouth twice daily 2 TRIMETHOPRIM-SULFAMETHOXAZOLE 81184443607 No Longer Active Tesfaye Sherman MD Active PRELIEF 340 (65-50) MG (CA-P) ORAL TABS CALCIUM GLYCEROPHOSPHATE 40053826308 Active Tesfaye Sherman MD Active [facility] NIACIN FLUSH FREE 400-100 MG CAPS 1 daily NIACIN-INOSITOL 55460261613 Active Kayla Cooper MD Active DIFLUCAN 150 MG TABS 1 qd FLUCONAZOLE 96674 554916 No Longer Active Kayla Cooper MD Active FLUTICASONE PROPIONATE 50 MCG/ACT SUSP 1 spray each nostril twice daily FLUTICASONE PROPIONATE 23080822459 Active Tesfaye armenta MD Active LOVASTATIN 20 MG TABS Take 1 tablet by mouth daily LOVASTATIN 48446397342 No Longer Active Tesfaye Sherman MD Active MELOXICAM 7.5 MG TABS 1 tablet by mouth daily M ELOXICAM 85778674035 No Longer Active Tesfaye Sherman MD Active GABAPENTIN 300 MG CAPS Take two tablets by mouth every evening GABAPENTIN 52654822069 No Longer Active Edith Burch MD Active TRIMETHOPRIM 100 MG TABS 1/2 qd TRIMETHOPRIM 3816775 3001 Active Kayla Cooper MD Active OXYCODONE-ACETAMINOPHEN 5-325 MG TABS Take one tablet by mouth every 6 hours as needed. Max 12 tabs/day as needed OXYCODONE-ACETAMINOP HEN 27714243432 Active Tesfaye Sherman MD Active CYMBALTA 60 MG CPEP Take 1 tablet by mouth daily D ULOXETINE HCL 05662951786 Active Kayla Cooper MD Active CLONAZEPAM 0.5 MG TABS Take one tablet in the morning and 1.5 table t at 7pm CLONAZEPAM 57931626730 Active Kayla Cooper MD Active CETIRIZINE HCL 5 MG TABS Take 1 tablet by mouth daily CETIRIZINE HCL 79338731697 Active Kayla Cooper MD Active BACLOFEN 10 MG TABS Take one tablet by mouth three times a day BACLOFEN 76918606582 Active Kayla Cooper MD Active GABAPENTIN 300 MG CAPS Take two tablets by mouth every evening GABAPENTIN 300 MG CAPS 244906 GABAPENTIN Inactive MELOXICAM 7.5 MG TABS 1 tablet by mouth daily MELOXICAM 7.5 MG TABS 497772 MELOXICAM Inactive LOVASTATIN 20 MG TABS Take 1 tablet by mouth daily 201 02/12/20 LOVASTATIN 20 MG TABS 520806 LOVASTATIN Inactive DIFLUCAN 150 MG TABS 1 qd DIFLUCAN 150 MG T ABS 872794 FLUCONAZOLE Inactive VITAMIN D3 2000 UNIT TABS 1 daily, for vitamin D deficiency 2014 VITAMIN D3 2000 UNIT TABS CHOLECALCIFEROL Inacti ve BACTRIM DS 800-160 MG TAB 1 tab by mouth twice daily 2 BACTRIM DS 800-160 MG TAB TRIMETHOPRIM-SULFAMETHOXAZOLE Inac tive ZITHROMAX 250 MG TAB 2 po today, then 1 po q days 2-5 ZITHROMAX 250 MG TAB 9268904 AZITHROMYCIN Inactive Advance Directives Directive Description Start [...] Panel - Chemistry sodium, serum 138 mmol/L 017-296 9485/10/20 potassium, serum 4.5 mmol/L 3.5-5.2 chloride, serum [...] 0.90 mg/dL 0.00-1.00 cholesterol, serum 237 mg/dL 341-490 7699/10/20 triglyceride, serum, fasting 71 mg/dL 30-200 HDL [...] Panel - Chemistry cholesterol, serum 221 mg/dL 799-731 0321/01/23 triglyceride, serum, fasting 81 mg/dL 30-200 HDL [...] negative Encounters Code Encounter Date Provider Facility CPT-41488 Level 4 Est. Patient 13:50:45 CDT Tesfaye pearson MD [facility] CPT-54285 Level 3 Est. Patient 10:16:10 CDT Tesfaye pearson MD [facility] CPT-81669 Level 3 Est. Patient 16:36:07 NEWSPAPER DISTRIBUTOR SUPERVISOR Kayla jameson MD [facility]-67101 Level 4 Est. Patient 16:00:14 NEWSPAPER DISTRIBUTOR SUPERVISOR Tesfaye pearson MD [facility] CPT-73705 Level 4 Est. Patient 11:02:24 NEWSPAPER DISTRIBUTOR SUPERVISOR Tesfaye pearson MD [facility] CPT-48185 Level 3 Est. Patient 20:21:43 NEWSPAPER DISTRIBUTOR SUPERVISOR Kayla jameson MD [facility]-99392 Level 3 Est. Patient 13:27:28 NEWSPAPER DISTRIBUTOR SUPERVISOR Kayla jameson MD [facility]-61578 Level 4 Est. Patient 15:57:17 NEWSPAPER DISTRIBUTOR SUPERVISOR Tesfaye pearson MD [facility] CPT-15634 Level 3 New Patient 13:25:47 CDT Tesfaye kidd MD [facility] CPT-12272 Level 3 New Patient 17:22:21 CDT J John angel MD [facility] Procedures Code Procedure Name Date Entry Date Standard Desc ription CPT-J3420 Vitamin B12 1000mcg (Cyanocobalamin) 15:05:39 CDT CPT-58468 Abx/Therapy Injection 15:05:39 CDT CPT-J3420 Vitamin B12 1000mcg (Cyanocobalamin) 13:50:45 CDT CPT-J3420 Vitamin B12 1000mcg (Cyanocobalamin) 08:48:55 CDT CPT-01015 Abx/Therapy Injection 08:48:55 CDT CPT-J3420 Vitamin B12 1000mcg (Cyanocobalamin) 09:14:54 CDT CPT-60793 Abx/Therapy Injection 09:14:54 CDT CPT-J3420 Vitamin B12 1000mcg (Cyanocobalamin) 09:06:06 CDT CPT-79126 Abx/Therapy Injection 09:06:06 CDT CPT-J3420 Vitamin B12 1000mcg (Cyanocobalamin) 09:49:14 CDT CPT-39846 Abx/Therapy Injection 09:49:14 CDT CPT-J3420 Vitamin B12 1000mcg (Cyanocobalamin) 09:10:30 NEWSPAPER DISTRIBUTOR SUPERVISOR CPT-34289 Abx/Therapy Injection 09:10:30 NEWSPAPER DISTRIBUTOR SUPERVISOR CPT-J3420 Vitamin B12 1000mcg (Cyanocobalamin) 09:11:07 NEWSPAPER DISTRIBUTOR SUPERVISOR CPT-26641 Abx/Therapy Injection 09:11:07 NEWSPAPER DISTRIBUTOR SUPERVISOR CPT-J3420 Vitamin B12 1000mcg (Cyanocobalamin) 09:57:03 NEWSPAPER DISTRIBUTOR SUPERVISOR CPT-25937 Abx/Therapy Injection 09:57:03 NEWSPAPER DISTRIBUTOR SUPERVISOR CPT-J3420 Vitamin B12 1000mcg (Cyanocobalamin) 09:23:21 NEWSPAPER DISTRIBUTOR SUPERVISOR CPT-25231 Abx/Therapy Injection 09:23:21 NEWSPAPER DISTRIBUTOR SUPERVISOR CPT-31309 Urine Dip (Floor Use Only) 20:21:44 NEWSPAPER DISTRIBUTOR SUPERVISOR 201 02/12/11 CPT-72662 UA Dip Auto (Floor Use Only) 10:04:39 NEWSPAPER DISTRIBUTOR SUPERVISOR 2 CPT-39774 Urine Dip (Floor Use Only) 13:27:28 NEWSPAPER DISTRIBUTOR SUPERVISOR 201 02/12/01 CPT-61956 Bladder Scan 13:27:28 NEWSPAPER DISTRIBUTOR SUPERVISOR CPT-12527 Abd single AP View 14:30:51 NEWSPAPER DISTRIBUTOR SUPERVISOR CPT-OV Office Visit 10:15:43 CDT CPT-03708 Urine Dip (Floor Use Only) 17:22:21 CDT 201 02/09/02 CPT-37497 Bladder Scan 17:22:21 CDT
--- OUTSIDE RECORDS SUMMARY | 2020-05-05 12:42 | XMS REPORT | Clinical Summary ---
Author Author Jeri Hanley Organization [employer] Address Unknown Phone Unavailable Allergies, Adverse Reactions, [...] Foot pain, right 729.5 Active Chelsea Cardenas COMPUTING TUTOR Pain in limb Joint pain 719.40 Active [...] 6 hours as needed. Use sparingly OXYCODONE-ACETAMINOPHEN 21592040339 Active Tesfaye Sherman MD Active PREDNISONE 20 MG ORAL TABLET 1 tab twice daily for 3 d ay, then one daily for three days PREDNISONE 66253085343 No Longer Active Tesfaye Sherman MD Active PROAIR HFA 108 (90 BASE) MCG/ACT INHALATION AEROSOL SO LUTION 1 puff every 6 hours as needed ALBUTEROL SULFATE 64749279186 Active [place] nda Raida Active MECLIZINE HCL 25 MG ORAL TABLET one 4 times a day as needed for dizziness MECLIZINE HCL 49139480662 Active Laurence Raduyen Active DIFLUCAN 100 MG ORAL TABLET 1 tablet by mouth daily FLUCONAZOLE 95517659332 Active Laurenceyohana Dominguez Active AMOXICILLIN 500 MG ORAL CAPSULE 1 cap by mouth three times a day AMOXICILLIN 61003903656 No Longer Active Laurenceyohana Dominguez Acti ve VENLAFAXINE HCL 75 MG ORAL TABLET 1 am 1/2 at noon VENLAFAXINE HCL 41236571091 Active Tesfaye Sherman MD Active DIFLUCAN 100 MG ORAL TABLET 1 tablet by mouth daily 20 19/08/26 FLUCONAZOLE 03065838585 No Longer Active Tesfaye Sherman MD Acti ve BACTRIM DS 800-160 MG ORAL TABLET 1 tab by mouth twice daily 201 05/10/28 TRIMETHOPRIM-SULFAMETHOXAZOLE 94119922511 No Longer Active A mirnakatarina Dominguez Active FOSAMAX 70 MG ORAL TABLET 1 po qweek. Take 30min prio r to first food/drink. Avoid lying down x 1 hour. ALENDRONATE SODIUM 05141706 144 No Longer Active Laurenceyohana Dominguez Active REPHRESH PRO-B ORAL CAPSULE 1 tablet daily LACT OBACILLUS 37375060500 Active Edith Burch MD Active CYMBALTA 60 MG ORAL CAPSULE DELAYED RELEASE PARTICLES Take 1 tablet by mouth daily DULOXETINE HCL 94288987424 No Longer Active Edith Burch MD Active CYMBALTA 30 MG ORAL CAPSULE DELAYED RELEASE PARTICLES 1 cap by mouth daily with 60mg DULOXETINE HCL 10611494091 No Longer Active Jordan Burch MD Active FISH OIL 1000 MG ORAL CAPSULE DELAYED RELEASE 1 pill b y mouth daily for cholesterol OMEGA-3 FATTY ACIDS 86078625872 Active Cee Jaffe LPN Active RED YEAST RICE 600 MG ORAL CAPSULE 1 pill by mouth daily RED YEAST RICE EXTRACT 75306195036 Active KEDNELL Moreno e DIFLUCAN 100 MG ORAL TABLET 1 tablet by mouth daily 20 19/03/05 FLUCONAZOLE 22416914986 No Longer Active Tesfaye Sherman MD Acti ve BACTRIM DS 800-160 MG ORAL TABLET 1 tab by mouth twice daily 201 05/06/28 TRIMETHOPRIM-SULFAMETHOXAZOLE 15062455788 No Longer Active Umer Sherman MD Active BACTRIM DS 800-160 MG ORAL TABLET 1 tab by mouth twice daily 201 05/04/15 TRIMETHOPRIM-SULFAMETHOXAZOLE 52454124033 No Longer Active Umer Sherman MD Active DIFLUCAN 150 MG ORAL TABLET 1 tablet by mouth daily 20 18/09/20 FLUCONAZOLE 07038819500 No Longer Active Tesfaye Sherman MD Acti ve BACTRIM DS 800-160 MG ORAL TABLET 1 tab by mouth twice daily 201 04/13/17 TRIMETHOPRIM-SULFAMETHOXAZOLE 49356112185 No Longer Active Umer Sherman MD Active ROPINIROLE HCL 0.25 MG ORAL TABLET 1 TAB PO Q HS ROPINIROLE HCL 13614045943 Active Tesfaye Sherman MD Active CEFTIN 250 MG ORAL TABLET 1 tablet twice daily x 7 days CEFUROXIME AXETIL 38178767412 No Longer Active Tesfaye Sherman MD Active DIFLUCAN 100 MG ORAL TABLET 1 tablet by mouth every other da y for 2 doses FLUCONAZOLE 49901699563 No Longer Active Tesfaye barron MD Active DIFLUCAN 100 MG ORAL TABLET 1 tablet by mouth daily X 3 DAYS 201 04/09/01 FLUCONAZOLE 74686559958 No Longer Active Rj Lyons tive MIRTAZAPINE 15 MG ORAL TABLET 1/2 tab by mouth at bedtime. 03/13 MIRTAZAPINE 20087899245 No Longer Active Tesfaye Sherman MD Active BACTRIM DS 800-160 MG ORAL TABLET 1 tab by mouth twice daily 201 04/09/01 TRIMETHOPRIM-SULFAMETHOXAZOLE 72003529947 No Longer Active Umer Sherman MD Active PRAMIPEXOLE DIHYDROCHLORIDE 0.125 MG ORAL TABLET take 1 tablet po qhs for restless leg syndrome. PRAMIPEXOLE DIHYDROCHLORI DE 99318226871 No Longer Active Tesfaye Sherman MD Active MAGNESIUM 400 MG ORAL TABLET 1 tab po daily MAGNE SIUM 18551967520 Active Chelsea Cardenas APRN Active SUDAFED 24 HOUR 240 MG ORAL TABLET EXTENDED RELEASE 24 HOUR 1 tab po daily PSEUDOEPHEDRINE HCL 30434918718 Active Chelsea Cardenas APRN Active CETIRIZINE HCL 5 MG ORAL TABLET Take 1 tablet by mouth daily CETIRIZINE HCL 25470076627 No Longer Active Chelsea Cardenas APRN Activ e TRIMETHOPRIM 100 MG ORAL TABLET 1/2 qd TRIM ETHOPRIM 95105111649 No Longer Active Chelsea Cardenas APRN Active BACTRIM DS 800-160 MG ORAL TABLET 1 tab by mouth twice daily 201 04/04/11 TRIMETHOPRIM-SULFAMETHOXAZOLE 05661815619 No Longer Active Umer Sherman MD Active BACTRIM DS 800-160 MG ORAL TABLET 1 tab by mouth twice daily X 10 DAYS TRIMETHOPRIM-SULFAMETHOXAZOLE 38132192159 No Longer Active Tesfaye Sherman MD Active AMOXICILLIN 500 MG ORAL CAPSULE 1 cap by mouth three times a day AMOXICILLIN 05675461738 No Longer Active Adriana Arredondo Active MECLIZINE HCL 25 MG ORAL TABLET one tab po qday prn dizziness 09/08 MECLIZINE HCL 13782525705 Active Tesfaye Sherman MD Active B-12 1000 MCG ORAL LOZENGE 1 tab po daily CYANO COBALAMIN 47845983957 Active Tesfaye Sherman MD Active VITAMIN D3 2000 UNIT ORAL TABLET 1 daily, for vitamin D deficien cy CHOLECALCIFEROL 71402357036 No Longer Active Tesfaye Sherman MD Active TIZANIDINE HCL 2 MG ORAL TABLET take 1-2 tablet by mo uth every day at bedtime at 9pm PRN TIZANIDINE HCL 73161100183 Active Tesfaye hewitt MD Active ZITHROMAX 250 MG ORAL TABLET 2 po today, then 1 po q days 2-5 20 15/02/10 AZITHROMYCIN 04634402231 No Longer Active Tesfaye Sherman MD Active BACTRIM DS 800-160 MG ORAL TABLET 1 tab by mouth twice daily 201 03/03/23 TRIMETHOPRIM-SULFAMETHOXAZOLE 35377746711 No Longer Active Umer Sherman MD Active PRELIEF 340 (65-50) MG (CA-P) ORAL TABLET CALCIUM GLYCEROPHOSPHATE 37727841166 Active Tesfaye Sherman MD Acti ve [facility] NIACIN FLUSH FREE 400-100 MG ORAL CAPSULE 1 daily NIACIN-INOSITOL 47864891570 Active Kayla Cooper MD Activ e DIFLUCAN 150 MG ORAL TABLET 1 qd FLUCONAZOL E 28702922590 No Longer Active Kayla Cooper MD Active FLUTICASONE PROPIONATE 50 MCG/ACT NASAL SUSPENSION 1 spray each nostril twice daily FLUTICASONE PROPIONATE 83132805762 Active Umer Sherman MD Active LOVASTATIN 20 MG ORAL TABLET Take 1 tablet by mouth daily LOVASTATIN 56068071813 No Longer Active Tesfaye Sherman MD Acti ve MELOXICAM 7.5 MG ORAL TABLET 1 tablet by mouth daily 2 MELOXICAM 57447982472 No Longer Active Tesfaye Sherman MD Acti ve GABAPENTIN 300 MG ORAL CAPSULE Take two tablets by mouth every e vening GABAPENTIN 87218558017 No Longer Active Edith Burch MD A ctive CLONAZEPAM 0.5 MG ORAL TABLET Take one tablet in the m orning and 1.5 tablet at 7pm CLONAZEPAM 18884650819 Active Kayla Cooper MD Active BACLOFEN 10 MG ORAL TABLET Take one tablet by mouth three times a d ay BACLOFEN 13626670961 Active Kayla Cooper MD Active GABAPENTIN 300 MG ORAL CAPSULE Take two tablets by mouth every e vening GABAPENTIN 300 MG ORAL CAPSULE 604664 GABAPENTIN I nactive MELOXICAM 7.5 MG ORAL TABLET 1 tablet by mouth daily 2 MELOXICAM 7.5 MG ORAL TABLET 778780 MELOXICAM Inactive LOVASTATIN 20 MG ORAL TABLET Take 1 tablet by mouth daily LOVASTATIN 20 MG ORAL TABLET 418821 LOVASTATIN Inactive DIFLUCAN 150 MG ORAL TABLET 1 qd DIFLUCAN 150 MG ORAL TABLET 507327 FLUCONAZOLE Inactive VITAMIN D3 2000 UNIT ORAL TABLET 1 daily, for vitamin D deficien cy VITAMIN D3 2000 UNIT ORAL TABLET CHOLECALCIFEROL Inactive AMOXICILLIN 500 MG ORAL CAPSULE 1 cap by mouth three times a day AMOXICILLIN 500 MG ORAL CAPSULE 823593 AMOXICILLIN Inactive BACTRIM DS 800-160 MG ORAL TABLET 1 tab by mouth twice daily X 10 DAYS BACTRIM DS 800-160 MG ORAL TABLET 884565 TRIMETHOPRIM-SULFAMETHOXAZOLE Inactive TRIMETHOPRIM 100 MG ORAL TABLET 1/2 qd 7 TRIMETHOPRIM 100 MG ORAL TABLET 419024 TRIMETHOPRIM Inactive CETIRIZINE HCL 5 MG ORAL TABLET Take 1 tablet by mouth daily CETIRIZINE HCL 5 MG ORAL TABLET 7960796 CETIRIZINE HCL Inactive PRAMIPEXOLE DIHYDROCHLORIDE 0.125 MG ORAL TABLET take 1 tablet po qhs for restless leg syndrome. PRAMIPEXOLE DIHYD ROCHLORIDE 0.125 MG ORAL TABLET 084891 PRAMIPEXOLE DIHYDROCHLORIDE Inactive MIRTAZAPINE 15 MG ORAL TABLET 1/2 tab by mouth at bedtime. 03/13 MIRTAZAPINE 15 MG ORAL TABLET 202178 MIRTAZAPINE In active DIFLUCAN 100 MG ORAL TABLET 1 tablet by mouth daily X 3 DAYS 201 04/09/01 DIFLUCAN 100 MG ORAL TABLET 807372 FLUCONAZOLE Inac tive DIFLUCAN 100 MG ORAL TABLET 1 tablet by mouth every other da y for 2 doses DIFLUCAN 100 MG ORAL TABLET 343571 FLUCONAZOLE Inactive CEFTIN 250 MG ORAL TABLET 1 tablet twice daily x 7 days CEFTIN 250 MG ORAL TABLET 328738 CEFUROXIME AXETIL Inactive CYMBALTA 30 MG ORAL CAPSULE DELAYED RELEASE PARTICLES 1 cap by mouth daily with 60mg CYMBALTA 30 MG ORAL CAPSULE DELAYED RELEASE PARTICLES 702319 DULOXETINE HCL Inactive CYMBALTA 60 MG ORAL CAPSULE DELAYED RELEASE PARTICLES Take 1 tablet by mouth daily CYMBALTA 60 MG ORAL CAPSULE DELAYED RELEA SE PARTICLES 421872 DULOXETINE HCL Inactive FOSAMAX 70 MG ORAL TABLET 1 po qweek. Take 30min prio r to first food/drink. Avoid lying down x 1 hour. FOSAMAX 70 MG ORAL TA BLET 188280 ALENDRONATE SODIUM Inactive DIFLUCAN 100 MG ORAL TABLET 1 tablet by mouth daily 20 19/08/26 DIFLUCAN 100 MG ORAL TABLET 232998 FLUCONAZOLE Inactive PREDNISONE 20 MG ORAL TABLET 1 tab twice daily for 3 d ay, then one daily for three days PREDNISONE 20 MG ORAL TABLET 413213 PREDNIS ONE Inactive BACTRIM DS 800-160 MG ORAL TABLET 1 tab by mouth twice daily 201 03/03/23 BACTRIM DS 800-160 MG ORAL TABLET 909968 TRIMETHOPRIM-SULFAMETHOXAZOLE Inactive ZITHROMAX 250 MG ORAL TABLET 2 po today, then 1 po q days 2-5 20 15/02/10 ZITHROMAX 250 MG ORAL TABLET 245866 AZITHROMYCIN Mayela ctive BACTRIM DS 800-160 MG [...] daily 19/03/05 DIFLUCAN 100 MG ORAL TABLET 532480 FLUCONAZOLE Inactive BACTRIM DS 800-160 MG ORAL TABLET 1 tab by mouth twice daily 201 05/10/28 BACTRIM DS 800-160 MG ORAL TABLET 747697 TRIMETHOPRIM-SULFAMETHOXAZOLE Inactive AMOXICILLIN 500 MG ORAL CAPSULE 1 cap by mouth three times a day AMOXICILLIN 500 MG ORAL CAPSULE 235277 AMOXICILLIN Inactive Advance Directives Directive Description Start Date PERMISSION TO SHARE DISCUSSED WITH PATIENT -- NO DECISION MADE DURABLE POWER OF TRANSITION MANAGER FOR HEALTHCARE DISCUSED WITH PATIENT -- [...] ... - Chemistry sodium, serum 144 mmol/L 338-580 4245/06/14 carbon dioxide, venous blood 29.4 mmol/L 21.0-32 .0 potassium, serum 4.4 mmol/L 3.5-5.2 chloride, serum 108 mmol/L 98-107 blood glucose 100 mg/dL 65-110 urea nitrogen, blood 9 mg/dL 7-18 creatinine, serum 0.67 mg/dL 0.55-1.30 alanine aminotransferase (SGPT), serum 24 U/L 12-78 aspartate aminotransferase (SGOT), serum 15 U/L 15-37 calcium, serum 9.3 mg/dL 8.5-10.1 bilirubin, serum, total 0.50 mg/dL 0.00-1.00 cholesterol, serum 268 mg/dL 091-624 2423/06/14 triglyceride, serum, fasting 126 mg/dL 30-200 HDL cholesterol, serum 51 mg/dL 32-96 LDL cholesterol, serum 192 mg/dL 0-130 TSH 0.83 m[iU]/mL 0.36-3.74 thyroxine, serum, free 1.03 ng/dL 0.76-1.46 uric acid, serum 3.2 mg/dL 2.6-7.2 Lab Report: Comp. Metabolic Panel, [facility] - Chemistry sodium, serum 141 mmol/L 171-417 9815/01/26 carbon dioxide, venous blood 29.5 mmol/L 21.0-32 [...] mg/dL Encounters Code Encounter Date Provider Facility CPT-67916 Level 4 Est. Patient 22:18:12 CDT Tesfaye pearson MD [facility] CPT-77193 Level 4 Est. Patient 14:44:33 BRANCH SERVICES MANAGER Tesfaye pearson MD [facility] CPT-11924 Level 4 Est. Patient 13:55:29 BRANCH SERVICES MANAGER Tesfaye pearson MD [facility] CPT-16672 Level 4 Est. Patient 17:07:34 BRANCH SERVICES MANAGER Tesfaye pearson MD [facility] CPT-62056 Level 4 Est. Patient 13:56:54 CDT Tesfaye pearson MD [facility] CPT-08356 Level 4 Est. Patient 13:24:25 CDT Chelsea sanz APRN [facility] CPT-29416 Level 4 Est. Patient 09:14:56 CDT Tesfaye pearson MD [facility]-09990 Level 4 Est. Patient 18:40:25 BRANCH SERVICES MANAGER Tesfaye pearson MD [facility] CPT-16045 Level 4 Est. Patient 18:13:07 BRANCH SERVICES MANAGER Tesfaye pearson MD [facility]-82733 Level 3 Est. Patient 10:46:32 CDT Rj cotto DO [facility] CPT-82918 Level 4 Est. Patient 20:19:25 CDT Tesfaye pearson MD [facility] CPT-55369 Level 3 Est. Patient 09:07:31 CDT Tesfaye pearson MD [facility] CPT-41655 Level 4 Est. Patient 13:12:56 CDT Tesfaye pearson MD [facility]-98659 Level 4 Est. Patient 21:24:55 BRANCH SERVICES MANAGER Tesfaye pearson MD [facility]-32538 Level 3 Est. Patient 13:45:04 BRANCH SERVICES MANAGER Tesfaye pearson MD [facility] CPT-98012 Level 4 Est. Patient 13:50:45 CDT Tesfaye pearson MD [facility] CPT-35099 Level 3 Est. Patient 10:16:10 CDT Tesfaye pearson MD [facility] CPT-57868 Level 3 Est. Patient 16:36:07 BRANCH SERVICES MANAGER Kayla jameson MD [facility] CPT-70869 Level 4 Est. Patient 16:00:14 BRANCH SERVICES MANAGER Tesfaye pearson MD [facility] CPT-31629 Level 4 Est. Patient 11:02:24 BRANCH SERVICES MANAGER Tesfaye pearson MD [facility] CPT-24825 Level 3 Est. Patient 20:21:43 BRANCH SERVICES MANAGER Kayla jameson MD [facility] CPT-78331 Level 3 Est. Patient 13:27:28 BRANCH SERVICES MANAGER Kayla jameson MD [facility] CPT-97888 Level 4 Est. Patient 15:57:17 BRANCH SERVICES MANAGER Tesfaye pearson MD [facility] CPT-58382 Level 3 New Patient 13:25:47 CDT Tesfaye kidd MD [facility] CPT-85989 Level 3 New Patient 17:22:21 CDT Kayla angel [facility] Procedures Code Procedure Name Date Entry Date Standard Desc ription CPT-G0439 Subsequent Annual Wellness Exam 22:18:11 CDT CPT-22067 Bone Density - XRAY USE ONLY 11:43:58 CDT 2 CPT-61290 Bone Density - XRAY USE ONLY 10:05:16 CDT 2 CPT-76813 Prv Med New Pt 40-64 yrs 18:19:25 CDT 2016 CPT-20283 Foot, right, comp min 3V - XRAY USE ONLY 10:38:34 CDT CPT-G0439 Subsequent Annual Wellness Exam 13:55:04 CDT CPT-G0438 Initial Annual Wellness Exam 11:23:17 CD T CPT-J2930 Solu Medrol 125 mg (Methyl Prednisolone Sodium Succinate) 17:29:12 BRANCH SERVICES MANAGER CPT-14416 Abx/Therapy Injection 17:29:11 BRANCH SERVICES MANAGER CPT-J2930 Solu Medrol 125 mg (Methyl Prednisolone Sodium Succinate) 12:34:38 BRANCH SERVICES MANAGER CPT-J3420 Vitamin B12 1000mcg (Cyanocobalamin) 09:12:55 CDT CPT-J3420 Vitamin B12 1000mcg (Cyanocobalamin) 16:28:06 BRANCH SERVICES MANAGER CPT-33325 Venipuncture Draw Fee 08:39:53 CDT CPT-J3420 Vitamin B12 1000mcg (Cyanocobalamin) 08:46:22 CDT CPT-37108 Abx/Therapy Injection 08:46:22 CDT CPT-J3420 Vitamin B12 1000mcg (Cyanocobalamin) 08:41:26 CDT CPT-04579 Abx/Therapy Injection 08:41:26 CDT CPT-J3420 Vitamin B12 1000mcg (Cyanocobalamin) 08:57:15 CDT CPT-21460 Abx/Therapy Injection 08:57:15 CDT CPT-J3420 Vitamin B12 1000mcg (Cyanocobalamin) 10:59:03 CDT CPT-06128 Abx/Therapy Injection 10:59:03 CDT CPT-J3420 Vitamin B12 1000mcg (Cyanocobalamin) 15:05:39 CDT CPT-80665 Abx/Therapy Injection 15:05:39 CDT CPT-J3420 Vitamin B12 1000mcg (Cyanocobalamin) 13:50:45 CDT CPT-J3420 Vitamin B12 1000mcg (Cyanocobalamin) 08:48:55 CDT CPT-98234 Abx/Therapy Injection 08:48:55 CDT CPT-J3420 Vitamin B12 1000mcg (Cyanocobalamin) 09:14:54 CDT CPT-51997 Abx/Therapy Injection 09:14:54 CDT CPT-J3420 Vitamin B12 1000mcg (Cyanocobalamin) 09:06:06 CDT CPT-05283 Abx/Therapy Injection 09:06:06 CDT CPT-J3420 Vitamin B12 1000mcg (Cyanocobalamin) 09:49:14 CDT CPT-53070 Abx/Therapy Injection 09:49:14 CDT CPT-J3420 Vitamin B12 1000mcg (Cyanocobalamin) 09:10:30 BRANCH SERVICES MANAGER CPT-12322 Abx/Therapy Injection 09:10:30 BRANCH SERVICES MANAGER CPT-J3420 Vitamin B12 1000mcg (Cyanocobalamin) 09:11:07 BRANCH SERVICES MANAGER CPT-42863 Abx/Therapy Injection 09:11:07 BRANCH SERVICES MANAGER CPT-J3420 Vitamin B12 1000mcg (Cyanocobalamin) 09:57:03 BRANCH SERVICES MANAGER CPT-76405 Abx/Therapy Injection 09:57:03 BRANCH SERVICES MANAGER CPT-J3420 Vitamin B12 1000mcg (Cyanocobalamin) 09:23:21 BRANCH SERVICES MANAGER CPT-54537 Abx/Therapy Injection 09:23:21 BRANCH SERVICES MANAGER CPT-48801 Urine Dip (Floor Use Only) 20:21:44 BRANCH SERVICES MANAGER 201 02/12/11 CPT-36961 UA Dip Auto (Floor Use Only) 10:04:39 BRANCH SERVICES MANAGER 2 CPT-84226 Urine Dip (Floor Use Only) 13:27:28 BRANCH SERVICES MANAGER 201 02/12/01 CPT-75948 Bladder Scan 13:27:28 BRANCH SERVICES MANAGER CPT-10125 Abd single AP View 14:30:51 BRANCH SERVICES MANAGER CPT-OV Office Visit 10:15:43 CDT CPT-83535 Urine Dip (Floor Use Only) 17:22:21 CDT 201 02/09/02 CPT-51678 Bladder Scan 17:22:21 CDT
--- OUTSIDE RECORDS SUMMARY | 2020-05-05 12:42 | XMS REPORT | Clinical Summary ---
Author Author Jeri Hanley Organization [employer] Address Unknown Phone Unavailable Allergies, Adverse Reactions, [...] every other day for 2 doses FLUCONAZOLE 07969478700 Active Rj Moss DO Active CEFTIN 250 MG TAB 1 tablet twice daily x 7 days CEFUROXIME AXETIL 41370886019 Active Rj Moss DO Active DIFLUCAN 100 MG TAB 1 tablet by mouth daily X 3 DAYS 2 FLUCONAZOLE 28639491630 No Longer Active Rj Moss DO Active MIRTAZAPINE 15 MG ORAL TABS 1/2 tab by mouth at bedtime. MIRTAZAPINE 99836567361 No Longer Active Tesfaye Sherman MD Acti ve BACTRIM DS 800-160 MG TAB 1 tab by mouth twice daily 2 TRIMETHOPRIM-SULFAMETHOXAZOLE 25843216061 No Longer Active Tesfaye Sherman MD Active PRAMIPEXOLE DIHYDROCHLORIDE 0.125 MG ORAL TABS take 1 tablet po qhs for restless leg syndrome. PRAMIPEXOLE DIHYDROCHLORIDE 76898517756 No Longer Active Tesfaye Sherman MD Active MAGNESIUM 400 MG ORAL TABS 1 tab po daily MAGNESI UM 15294644272 Active Chelsea Barba APRN Active SUDAFED 24 HOUR 240 MG ORAL [id number] 1 tab po daily PSEUDOEPHEDRINE HCL 20998675454 Active Chelsea Barba APRN A ctive CETIRIZINE HCL 5 MG TABS Take 1 tablet by mouth daily CETIRIZINE HCL 83933921858 No Longer Active Chelsea Barba APRN Acti ve TRIMETHOPRIM 100 MG TABS 1/2 qd TRIMETHOPRIM 69885891865 No Longer Active Chelsea Barba APRN Active BACTRIM DS 800-160 MG TAB 1 tab by mouth twice daily 2 TRIMETHOPRIM-SULFAMETHOXAZOLE 06384586172 No Longer Active Tesfaye Sherman MD Active BACTRIM DS 800-160 MG TAB 1 tab by mouth twice daily X 10 DAYS 2 TRIMETHOPRIM-SULFAMETHOXAZOLE 76534888659 No Longer Active Umer Sherman MD Active AMOXICILLIN 500 MG CAPS 1 cap by mouth three times a day AMOXICILLIN 52159644546 No Longer Active Adriana Arredondo Active MECLIZINE HCL 25 MG TAB one tab po qday prn dizziness MECLIZINE HCL 63723390757 Active Tesfaye Sherman MD Active B-12 1000 MCG ORAL LOZG 1 tab po daily CYANOCOBAL STANTON 88469100198 Active Tesfaye Sherman MD Active VITAMIN D3 2000 UNIT TABS 1 daily, for vitamin D deficiency 2014 CHOLECALCIFEROL 49729851626 No Longer Active Tesfaye Sherman MD Active TIZANIDINE HCL 2 MG TABS take 1-2 tablet by mouth ev [place] day at bedtime at 9pm PRN TIZANIDINE HCL 14256645229 Active Tesfaye Owusu Active ZITHROMAX 250 MG TAB 2 po today, then 1 po q days 2-5 AZITHROMYCIN 58940513498 No Longer Active Tesfaye Sherman MD Acti ve BACTRIM DS 800-160 MG TAB 1 tab by mouth twice daily 2 TRIMETHOPRIM-SULFAMETHOXAZOLE 14487352898 No Longer Active Tesfaye Sherman MD Active PRELIEF 340 (65-50) MG (CA-P) ORAL TABS CALCIUM GLYCEROPHOSPHATE 64165020080 Active Tesfaye Sherman MD Active [facility] NIACIN FLUSH FREE 400-100 MG CAPS 1 daily NIACIN-INOSITOL 69978493844 Active Kayla Cooper MD Active DIFLUCAN 150 MG TABS 1 qd FLUCONAZOLE 28812 522531 No Longer Active Kayla Cooper MD Active FLUTICASONE PROPIONATE 50 MCG/ACT SUSP 1 spray each nostril twice daily FLUTICASONE PROPIONATE 19593620244 Active Tesfaye armenta MD Active LOVASTATIN 20 MG TABS Take 1 tablet by mouth daily LOVASTATIN 82468197763 No Longer Active Tesfaye Sherman MD Active MELOXICAM 7.5 MG TABS 1 tablet by mouth daily M ELOXICAM 73392992562 No Longer Active Tesfaye Sherman MD Active GABAPENTIN 300 MG CAPS Take two tablets by mouth every evening GABAPENTIN 42342178883 No Longer Active Edith Burch MD Active OXYCODONE-ACETAMINOPHEN 5-325 MG TABS Take one tablet by mouth every 6 hours as needed. Max 12 tabs/day as needed OXYCODONE-ACETAMINOP HEN 78918994448 Active Tesfaye Sherman MD Active CYMBALTA 60 MG CPEP Take 1 tablet by mouth daily D ULOXETINE HCL 73037466770 Active Kayla Cooper MD Active CLONAZEPAM 0.5 MG TABS Take one tablet in the morning and 1.5 table t at 7pm CLONAZEPAM 58144971147 Active Kayla Cooper MD Active BACLOFEN 10 MG TABS Take one tablet by mouth three times a day BACLOFEN 83359801992 Active Kayla Cooper MD Active GABAPENTIN 300 MG CAPS Take two tablets by mouth every evening GABAPENTIN 300 MG CAPS 594831 GABAPENTIN Inactive MELOXICAM 7.5 MG TABS 1 tablet by mouth daily MELOXICAM 7.5 MG TABS 700239 MELOXICAM Inactive LOVASTATIN 20 MG TABS Take 1 tablet by mouth daily 201 02/12/20 LOVASTATIN 20 MG TABS 882927 LOVASTATIN Inactive DIFLUCAN 150 MG TABS 1 qd DIFLUCAN 150 MG T ABS 476815 FLUCONAZOLE Inactive VITAMIN D3 2000 UNIT TABS 1 daily, for vitamin D deficiency 2014 VITAMIN D3 2000 UNIT TABS CHOLECALCIFEROL Inacti ve AMOXICILLIN 500 MG CAPS 1 cap by mouth three times a day AMOXICILLIN 500 MG CAPS 849792 AMOXICILLIN Inactive BACTRIM DS 800-160 MG TAB 1 tab by mouth twice daily X 10 DAYS 2 BACTRIM DS 800-160 MG TAB 19830105 TRIMETHOPRIM-SULFAMETH OXAZOLE Inactive TRIMETHOPRIM 100 MG TABS 1/2 qd TRIMETHOPRI M 100 MG TABS 574794 TRIMETHOPRIM Inactive CETIRIZINE HCL 5 MG TABS Take 1 tablet by mouth daily CETIRIZINE HCL 5 MG TABS 7924364 CETIRIZINE HCL Inactive PRAMIPEXOLE DIHYDROCHLORIDE 0.125 MG ORAL TABS take 1 tablet po qhs for restless leg syndrome. PRAMIPEXOLE DIHYDROC HLORIDE 0.125 MG ORAL TABS 991448 PRAMIPEXOLE DIHYDROCHLORIDE Inactive MIRTAZAPINE 15 MG ORAL TABS 1/2 tab by mouth at bedtime. MIRTAZAPINE 15 MG ORAL TABS 375789 MIRTAZAPINE Inactive DIFLUCAN 100 MG TAB 1 tablet by mouth daily X 3 DAYS 2 DIFLUCAN 100 MG TAB 113779 FLUCONAZOLE Inactive BACTRIM DS 800-160 MG TAB 1 tab by mouth twice daily 2 BACTRIM DS 800-160 MG TAB 972100 TRIMETHOPRIM-SULFAMETHOXAZOLE Inac tive ZITHROMAX 250 MG TAB 2 po today, then 1 po q days 2-5 ZITHROMAX 250 MG TAB 5065793 AZITHROMYCIN Inactive BACTRIM DS 800-160 MG TAB [...] mg/dL Encounters Code Encounter Date Provider Facility CPT-30140 Level 3 Est. Patient 10:46:32 CDT Rj cotto DO [facility] CPT-09983 Level 4 Est. Patient 20:19:25 CDT Tesfaye pearson MD [facility] CPT-03823 Level 3 Est. Patient 09:07:31 CDT Tesfaye pearson MD [facility] CPT-17804 Level 4 Est. Patient 13:12:56 CDT Tesfaye pearson MD [facility] CPT-54799 Level 4 Est. Patient 21:24:55 BAD WORK GATHERER Tesfaye pearson MD [facility] CPT-77420 Level 3 Est. Patient 13:45:04 BAD WORK GATHERER Tesfaye pearson MD [facility] CPT-85655 Level 4 Est. Patient 13:50:45 CDT Tesfaye pearson MD [facility] CPT-60060 Level 3 Est. Patient 10:16:10 CDT Tesfaye pearson MD [facility] CPT-72323 Level 3 Est. Patient 16:36:07 BAD WORK GATHERER Kayla jameson MD [facility] CPT-26253 Level 4 Est. Patient 16:00:14 BAD WORK GATHERER Tesfaye pearson MD [facility] CPT-32876 Level 4 Est. Patient 11:02:24 BAD WORK GATHERER Tesfaye pearson MD [facility] CPT-78503 Level 3 Est. Patient 20:21:43 BAD WORK GATHERER Kayla jameson MD [facility] CPT-67756 Level 3 Est. Patient 13:27:28 BAD WORK GATHERER Kayla jameson MD [facility] CPT-00052 Level 4 Est. Patient 15:57:17 BAD WORK GATHERER Tesfaye pearson MD [facility] CPT-43104 Level 3 New Patient 13:25:47 CDT Tesfaye kidd MD [facility] CPT-60527 Level 3 New Patient 17:22:21 CDT Kayla angel MD [facility] Procedures Code Procedure Name Date Entry Date Standard Desc ription CPT-G0438 Initial Annual Wellness Exam 11:23:17 CD T CPT-J2930 Solu Medrol 125 mg (Methyl Prednisolone Sodium Succinate) 17:29:12 BAD WORK GATHERER CPT-04107 Abx/Therapy Injection 17:29:11 BAD WORK GATHERER CPT-J2930 Solu Medrol 125 mg (Methyl Prednisolone Sodium Succinate) 12:34:38 BAD WORK GATHERER CPT-J3420 Vitamin B12 1000mcg (Cyanocobalamin) 09:12:55 CDT CPT-J3420 Vitamin B12 1000mcg (Cyanocobalamin) 16:28:06 BAD WORK GATHERER CPT-02695 Venipuncture Draw Fee 08:39:53 CDT CPT-J3420 Vitamin B12 1000mcg (Cyanocobalamin) 08:46:22 CDT CPT-25343 Abx/Therapy Injection 08:46:22 CDT CPT-J3420 Vitamin B12 1000mcg (Cyanocobalamin) 08:41:26 CDT CPT-65557 Abx/Therapy Injection 08:41:26 CDT CPT-J3420 Vitamin B12 1000mcg (Cyanocobalamin) 08:57:15 CDT CPT-57773 Abx/Therapy Injection 08:57:15 CDT CPT-J3420 Vitamin B12 1000mcg (Cyanocobalamin) 10:59:03 CDT CPT-10995 Abx/Therapy Injection 10:59:03 CDT CPT-J3420 Vitamin B12 1000mcg (Cyanocobalamin) 15:05:39 CDT CPT-73199 Abx/Therapy Injection 15:05:39 CDT CPT-J3420 Vitamin B12 1000mcg (Cyanocobalamin) 13:50:45 CDT CPT-J3420 Vitamin B12 1000mcg (Cyanocobalamin) 08:48:55 CDT CPT-02620 Abx/Therapy Injection 08:48:55 CDT CPT-J3420 Vitamin B12 1000mcg (Cyanocobalamin) 09:14:54 CDT CPT-99263 Abx/Therapy Injection 09:14:54 CDT CPT-J3420 Vitamin B12 1000mcg (Cyanocobalamin) 09:06:06 CDT CPT-79426 Abx/Therapy Injection 09:06:06 CDT CPT-J3420 Vitamin B12 1000mcg (Cyanocobalamin) 09:49:14 CDT CPT-99477 Abx/Therapy Injection 09:49:14 CDT CPT-J3420 Vitamin B12 1000mcg (Cyanocobalamin) 09:10:30 BAD WORK GATHERER CPT-61764 Abx/Therapy Injection 09:10:30 BAD WORK GATHERER CPT-J3420 Vitamin B12 1000mcg (Cyanocobalamin) 09:11:07 BAD WORK GATHERER CPT-62254 Abx/Therapy Injection 09:11:07 BAD WORK GATHERER CPT-J3420 Vitamin B12 1000mcg (Cyanocobalamin) 09:57:03 BAD WORK GATHERER CPT-21346 Abx/Therapy Injection 09:57:03 BAD WORK GATHERER CPT-J3420 Vitamin B12 1000mcg (Cyanocobalamin) 09:23:21 BAD WORK GATHERER CPT-95055 Abx/Therapy Injection 09:23:21 BAD WORK GATHERER CPT-57958 Urine Dip (Floor Use Only) 20:21:44 BAD WORK GATHERER 201 02/12/11 CPT-57052 UA Dip Auto (Floor Use Only) 10:04:39 BAD WORK GATHERER 2 CPT-18925 Urine Dip (Floor Use Only) 13:27:28 BAD WORK GATHERER 201 02/12/01 CPT-75839 Bladder Scan 13:27:28 BAD WORK GATHERER CPT-19206 Abd single AP View 14:30:51 BAD WORK GATHERER CPT-OV Office Visit 10:15:43 CDT CPT-06482 Urine Dip (Floor Use Only) 17:22:21 CDT 201 02/09/02 CPT-49939 Bladder Scan 17:22:21 CDT
--- OUTSIDE RECORDS SUMMARY | 2020-05-05 12:43 | XMS REPORT | Clinical Summary ---
Author Author Jeri Hanley Organization [employer] Address Unknown Phone Unavailable Allergies, Adverse Reactions, [...] tab by mouth twice daily 2 TRIMETHOPRIM-SULFAMETHOXAZOLE 90978081324 No Longer Active Tesfaye Sherman MD Active DIFLUCAN 150 MG TAB 1 tablet by mouth daily FLU CONAZOLE 97943325831 No Longer Active Tesfaye Sherman MD Active BACTRIM DS 800-160 MG TAB 1 tab by mouth twice daily 2 TRIMETHOPRIM-SULFAMETHOXAZOLE 73368204818 No Longer Active Tesfaye Sherman MD Active ROPINIROLE HCL 0.25 MG ORAL TABS 1 TAB PO Q HS ROPINIROLE HCL 16247720556 Active Tesfaye Sherman MD Active CYMBALTA 30 MG CPEP 1 cap by mouth daily with 60mg DULOXETINE HCL 87376297207 Active Tesfaye Sherman MD Active CEFTIN 250 MG TAB 1 tablet twice daily x 7 days 11/19 CEFUROXIME AXETIL 80538696746 No Longer Active Tesfaye Sherman MD Acti ve DIFLUCAN 100 MG TABS 1 tablet by mouth every other day for 2 dos es FLUCONAZOLE 76095286040 No Longer Active Tesfaye Sherman MD Active DIFLUCAN 100 MG TAB 1 tablet by mouth daily X 3 DAYS 2 FLUCONAZOLE 16792550385 No Longer Active Rj Moss DO Active MIRTAZAPINE 15 MG ORAL TABS 1/2 tab by mouth at bedtime. MIRTAZAPINE 67524793490 No Longer Active Tesfaye Sherman MD Acti ve BACTRIM DS 800-160 MG TAB 1 tab by mouth twice daily 2 TRIMETHOPRIM-SULFAMETHOXAZOLE 58217639570 No Longer Active Tesfaye Sherman MD Active PRAMIPEXOLE DIHYDROCHLORIDE 0.125 MG ORAL TABS take 1 tablet po qhs for restless leg syndrome. PRAMIPEXOLE DIHYDROCHLORIDE 33037414172 No Longer Active Tesfaye Sherman MD Active MAGNESIUM 400 MG ORAL TABS 1 tab po daily MAGNESI UM 00509491318 Active Chelsea Barba APRN Active SUDAFED 24 HOUR 240 MG ORAL [id number] 1 tab po daily PSEUDOEPHEDRINE HCL 54986988556 Active Chelsea Barba APRN A ctive CETIRIZINE HCL 5 MG TABS Take 1 tablet by mouth daily CETIRIZINE HCL 64122035730 No Longer Active Chelsea Barba APRN Acti ve TRIMETHOPRIM 100 MG TABS 1/2 qd TRIMETHOPRIM 35094891767 No Longer Active Chelsea Barba APRN Active BACTRIM DS 800-160 MG TAB 1 tab by mouth twice daily 2 TRIMETHOPRIM-SULFAMETHOXAZOLE 76639253994 No Longer Active Tesfaye Sherman MD Active BACTRIM DS 800-160 MG TAB 1 tab by mouth twice daily X 10 DAYS 2 TRIMETHOPRIM-SULFAMETHOXAZOLE 89696066326 No Longer Active Umer Sherman MD Active AMOXICILLIN 500 MG CAPS 1 cap by mouth three times a day AMOXICILLIN 45939809600 No Longer Active Adriana Arredondo Active MECLIZINE HCL 25 MG TAB one tab po qday prn dizziness MECLIZINE HCL 55230316196 Active Tesfaye Sherman MD Active B-12 1000 MCG ORAL LOZG 1 tab po daily CYANOCOBAL STANTON 11131802642 Active Tesfaye Sherman MD Active VITAMIN D3 2000 UNIT TABS 1 daily, for vitamin D deficiency 2014 CHOLECALCIFEROL 08247383415 No Longer Active Tesfaye Sherman MD Active TIZANIDINE HCL 2 MG TABS take 1-2 tablet by mouth ev at bedtime at 9pm PRN TIZANIDINE HCL 53202821806 Active Tesfaye Owusu Active ZITHROMAX 250 MG TAB 2 po today, then 1 po q days 2-5 AZITHROMYCIN 18335998811 No Longer Active Tesfaye Sherman MD Acti ve BACTRIM DS 800-160 MG TAB 1 tab by mouth twice daily 2 TRIMETHOPRIM-SULFAMETHOXAZOLE 47153954558 No Longer Active Tesfaye Sherman MD Active PRELIEF 340 (65-50) MG (CA-P) ORAL TABS CALCIUM GLYCEROPHOSPHATE 30563946935 Active Tesfaye Sherman MD Active [facility] NIACIN FLUSH FREE 400-100 MG CAPS 1 daily NIACIN-INOSITOL 51721074282 Active Kayla Cooper MD Active DIFLUCAN 150 MG TABS 1 qd FLUCONAZOLE 13363 029931 No Longer Active Kayla Cooper MD Active FLUTICASONE PROPIONATE 50 MCG/ACT SUSP 1 spray each nostril twice daily FLUTICASONE PROPIONATE 02603540262 Active Tesfaye armenta MD Active LOVASTATIN 20 MG TABS Take 1 tablet by mouth daily LOVASTATIN 03350238254 No Longer Active Tesfaye Sherman MD Active MELOXICAM 7.5 MG TABS 1 tablet by mouth daily M ELOXICAM 91381899054 No Longer Active Tesfaye Sherman MD Active GABAPENTIN 300 MG CAPS Take two tablets by mouth every evening GABAPENTIN 39630886727 No Longer Active Edith Burch MD Active OXYCODONE-ACETAMINOPHEN 5-325 MG TABS Take one tablet by mouth every 6 hours as needed. Max 12 tabs/day as needed OXYCODONE-ACETAMINOP HEN 35979513982 Active Tesfaye Sherman MD Active CYMBALTA 60 MG CPEP Take 1 tablet by mouth daily D ULOXETINE HCL 54222855979 Active Kayla Cooper MD Active CLONAZEPAM 0.5 MG TABS Take one tablet in the morning and 1.5 table t at 7pm CLONAZEPAM 67569477159 Active Kayla Cooper MD Active BACLOFEN 10 MG TABS Take one tablet by mouth three times a day BACLOFEN 54984728318 Active Kayla Cooper MD Active GABAPENTIN 300 MG CAPS Take two tablets by mouth every evening GABAPENTIN 300 MG CAPS 921307 GABAPENTIN Inactive MELOXICAM 7.5 MG TABS 1 tablet by mouth daily MELOXICAM 7.5 MG TABS 275487 MELOXICAM Inactive LOVASTATIN 20 MG TABS Take 1 tablet by mouth daily 201 02/12/20 LOVASTATIN 20 MG TABS 603874 LOVASTATIN Inactive DIFLUCAN 150 MG TABS 1 qd DIFLUCAN 150 MG T ABS 865649 FLUCONAZOLE Inactive VITAMIN D3 2000 UNIT TABS 1 daily, for vitamin D deficiency 2014 VITAMIN D3 2000 UNIT TABS CHOLECALCIFEROL Inacti ve AMOXICILLIN 500 MG CAPS 1 cap by mouth three times a day AMOXICILLIN 500 MG CAPS 755510 AMOXICILLIN Inactive BACTRIM DS 800-160 MG TAB 1 tab by mouth twice daily X 10 DAYS 2 BACTRIM DS 800-160 MG TAB 980242 TRIMETHOPRIM-SULFAMETH OXAZOLE Inactive TRIMETHOPRIM 100 MG TABS 1/2 qd TRIMETHOPRI M 100 MG TABS 727976 TRIMETHOPRIM Inactive CETIRIZINE HCL 5 MG TABS Take 1 tablet by mouth daily CETIRIZINE HCL 5 MG TABS 6657427 CETIRIZINE HCL Inactive PRAMIPEXOLE DIHYDROCHLORIDE 0.125 MG ORAL TABS take 1 tablet po qhs for restless leg syndrome. PRAMIPEXOLE DIHYDROC HLORIDE 0.125 MG ORAL TABS 680281 PRAMIPEXOLE DIHYDROCHLORIDE Inactive MIRTAZAPINE 15 MG ORAL TABS 1/2 tab by mouth at bedtime. MIRTAZAPINE 15 MG ORAL TABS 348580 MIRTAZAPINE Inactive DIFLUCAN 100 MG TAB 1 tablet by mouth daily X 3 DAYS 2 DIFLUCAN 100 MG TAB 158154 FLUCONAZOLE Inactive DIFLUCAN 100 MG TABS 1 tablet by mouth every other day for 2 dos es DIFLUCAN 100 MG TABS 153198 FLUCONAZOLE Inactive CEFTIN 250 MG TAB 1 tablet twice daily x 7 days 11/19 CEFTIN 250 MG TAB 675272 CEFUROXIME AXETIL Inactive BACTRIM DS 800-160 MG TAB 1 tab by mouth twice daily 2 BACTRIM DS 800-160 MG TAB 644790 TRIMETHOPRIM-SULFAMETHOXAZOLE Inac tive ZITHROMAX 250 MG TAB 2 po today, then 1 po q days 2-5 ZITHROMAX 250 MG TAB 6863145 AZITHROMYCIN Inactive BACTRIM DS 800-160 MG TAB [...] mg/dL Encounters Code Encounter Date Provider Facility CPT-49764 Level 4 Est. Patient 18:40:25 SAFE TECHNICIAN Tesfaye pearson MD [facility] CPT-93358 Level 4 Est. Patient 18:13:07 SAFE TECHNICIAN Tesfaye pearson MD [facility] CPT-82019 Level 3 Est. Patient 10:46:32 CDT Rj cotto DO [facility] CPT-56709 Level 4 Est. Patient 20:19:25 CDT Tesfaye pearson MD [facility] CPT-66844 Level 3 Est. Patient 09:07:31 CDT Tesfaye pearson MD [facility] CPT-13875 Level 4 Est. Patient 13:12:56 CDT Tesfaye pearson MD [facility]-48618 Level 4 Est. Patient 21:24:55 SAFE TECHNICIAN Tesfaye pearson MD [facility]-62488 Level 3 Est. Patient 13:45:04 SAFE TECHNICIAN Tesfaye pearson MD [facility] CPT-84330 Level 4 Est. Patient 13:50:45 CDT Tesfaye pearson MD [facility] CPT-22259 Level 3 Est. Patient 10:16:10 CDT Tesfaye pearson MD [facility]-41084 Level 3 Est. Patient 16:36:07 SAFE TECHNICIAN Kayla jameson MD [facility]-97377 Level 4 Est. Patient 16:00:14 SAFE TECHNICIAN Tesfaye pearson MD [facility]-79369 Level 4 Est. Patient 11:02:24 SAFE TECHNICIAN Tesfaye pearson MD [facility]-97168 Level 3 Est. Patient 20:21:43 SAFE TECHNICIAN Kayla jameson MD [facility]-00736 Level 3 Est. Patient 13:27:28 SAFE TECHNICIAN Kayla jameson MD [facility]-34846 Level 4 Est. Patient 15:57:17 SAFE TECHNICIAN Tesfaye pearson MD [facility] CPT-84806 Level 3 New Patient 13:25:47 CDT Tesfaye kidd MD [facility] CPT-93065 Level 3 New Patient 17:22:21 CDT Kayla angel MD [facility] Procedures Code Procedure Name Date Entry Date Standard Desc ription CPT-G0438 Initial Annual Wellness Exam 11:23:17 CD T CPT-J2930 Solu Medrol 125 mg (Methyl Prednisolone Sodium Succinate) 17:29:12 SAFE TECHNICIAN CPT-48590 Abx/Therapy Injection 17:29:11 SAFE TECHNICIAN CPT-J2930 Solu Medrol 125 mg (Methyl Prednisolone Sodium Succinate) 12:34:38 SAFE TECHNICIAN CPT-J3420 Vitamin B12 1000mcg (Cyanocobalamin) 09:12:55 CDT CPT-J3420 Vitamin B12 1000mcg (Cyanocobalamin) 16:28:06 SAFE TECHNICIAN CPT-83505 Venipuncture Draw Fee 08:39:53 CDT CPT-J3420 Vitamin B12 1000mcg (Cyanocobalamin) 08:46:22 CDT CPT-41300 Abx/Therapy Injection 08:46:22 CDT CPT-J3420 Vitamin B12 1000mcg (Cyanocobalamin) 08:41:26 CDT CPT-66485 Abx/Therapy Injection 08:41:26 CDT CPT-J3420 Vitamin B12 1000mcg (Cyanocobalamin) 08:57:15 CDT CPT-25402 Abx/Therapy Injection 08:57:15 CDT CPT-J3420 Vitamin B12 1000mcg (Cyanocobalamin) 10:59:03 CDT CPT-44352 Abx/Therapy Injection 10:59:03 CDT CPT-J3420 Vitamin B12 1000mcg (Cyanocobalamin) 15:05:39 CDT CPT-35218 Abx/Therapy Injection 15:05:39 CDT CPT-J3420 Vitamin B12 1000mcg (Cyanocobalamin) 13:50:45 CDT CPT-J3420 Vitamin B12 1000mcg (Cyanocobalamin) 08:48:55 CDT CPT-33442 Abx/Therapy Injection 08:48:55 CDT CPT-J3420 Vitamin B12 1000mcg (Cyanocobalamin) 09:14:54 CDT CPT-10478 Abx/Therapy Injection 09:14:54 CDT CPT-J3420 Vitamin B12 1000mcg (Cyanocobalamin) 09:06:06 CDT CPT-00500 Abx/Therapy Injection 09:06:06 CDT CPT-J3420 Vitamin B12 1000mcg (Cyanocobalamin) 09:49:14 CDT CPT-64577 Abx/Therapy Injection 09:49:14 CDT CPT-J3420 Vitamin B12 1000mcg (Cyanocobalamin) 09:10:30 SAFE TECHNICIAN CPT-14295 Abx/Therapy Injection 09:10:30 SAFE TECHNICIAN CPT-J3420 Vitamin B12 1000mcg (Cyanocobalamin) 09:11:07 SAFE TECHNICIAN CPT-72378 Abx/Therapy Injection 09:11:07 SAFE TECHNICIAN CPT-J3420 Vitamin B12 1000mcg (Cyanocobalamin) 09:57:03 SAFE TECHNICIAN CPT-08320 Abx/Therapy Injection 09:57:03 SAFE TECHNICIAN CPT-J3420 Vitamin B12 1000mcg (Cyanocobalamin) 09:23:21 SAFE TECHNICIAN CPT-24108 Abx/Therapy Injection 09:23:21 SAFE TECHNICIAN CPT-24161 Urine Dip (Floor Use Only) 20:21:44 SAFE TECHNICIAN 201 02/12/11 CPT-21381 UA Dip Auto (Floor Use Only) 10:04:39 SAFE TECHNICIAN 2 CPT-53761 Urine Dip (Floor Use Only) 13:27:28 SAFE TECHNICIAN 201 02/12/01 CPT-27110 Bladder Scan 13:27:28 SAFE TECHNICIAN CPT-25549 Abd single AP View 14:30:51 SAFE TECHNICIAN CPT-OV Office Visit 10:15:43 CDT CPT-56413 Urine Dip (Floor Use Only) 17:22:21 CDT 201 02/09/02 CPT-15288 Bladder Scan 17:22:21 CDT
--- OUTSIDE RECORDS SUMMARY | 2020-05-05 12:43 | XMS REPORT | Clinical Summary ---
Author Author Jeri Hanley Organization [facility] Address Unknown Phone Unavailable Allergies, Adverse Reactions, [...] ORAL CAPS 1 tablet daily LACTOBACI LLUS [id number] Active Edith Burch MD Active CYMBALTA 60 MG CPEP Take 1 tablet by mouth daily 1 DULOXETINE HCL 02892659864 No Longer Active Edith Burch MD Active CYMBALTA 30 MG CPEP 1 cap by mouth daily with 60mg 201 05/09/11 DULOXETINE HCL 35259215166 No Longer Active Edith Burch MD Activ e FISH OIL 1000 MG CPDR 1 pill by mouth daily for cholesterol 04/18 OMEGA- 3 FATTY ACIDS 73543703977 Active Rosa Jaffe LPN Acti ve RED YEAST RICE 600 MG CAPS 1 pill by mouth daily RED YEAST RICE EXTRACT 24276489297 Active Rosa Jaffe LPN Activ e VENLAFAXINE HCL 37.5 MG TABS 1/4 tab po titrating up to full dose 2 VENLAFAXINE HCL 37710767022 Active Chelsea Barba APRN Activ e DIFLUCAN 100 MG TAB 1 tablet by mouth daily FLU CONAZOLE 85408725318 No Longer Active Tesfaye Sherman MD Active BACTRIM DS 800-160 MG TAB 1 tab by mouth twice daily 2 TRIMETHOPRIM-SULFAMETHOXAZOLE 70926722969 No Longer Active Tesfaye Sherman MD Active BACTRIM DS 800-160 MG TAB 1 tab by mouth twice daily 2 TRIMETHOPRIM-SULFAMETHOXAZOLE 48078136635 No Longer Active Tesfaye Sherman MD Active DIFLUCAN 150 MG TAB 1 tablet by mouth daily FLU CONAZOLE 79880978873 No Longer Active Tesfaye Sherman MD Active BACTRIM DS 800-160 MG TAB 1 tab by mouth twice daily 2 TRIMETHOPRIM-SULFAMETHOXAZOLE 93696347645 No Longer Active Tesfaye Sherman MD Active ROPINIROLE HCL 0.25 MG ORAL TABS 1 TAB PO Q HS ROPINIROLE HCL 16688132890 Active Tesfaye Sherman MD Active CEFTIN 250 MG TAB 1 tablet twice daily x 7 days 11/19 CEFUROXIME AXETIL 06802865485 No Longer Active Tesfaye Sherman MD Acti ve DIFLUCAN 100 MG TABS 1 tablet by mouth every other day for 2 dos es FLUCONAZOLE 65467874101 No Longer Active Tesfaye Sherman MD Active DIFLUCAN 100 MG TAB 1 tablet by mouth daily X 3 DAYS 2 FLUCONAZOLE 72771580644 No Longer Active Rj Moss DO Active MIRTAZAPINE 15 MG ORAL TABS 1/2 tab by mouth at bedtime. MIRTAZAPINE 23534765068 No Longer Active Tesfaye Sherman MD Acti ve BACTRIM DS 800-160 MG TAB 1 tab by mouth twice daily 2 TRIMETHOPRIM-SULFAMETHOXAZOLE 23476766786 No Longer Active Tesfaye Sherman MD Active PRAMIPEXOLE DIHYDROCHLORIDE 0.125 MG ORAL TABS take 1 tablet po qhs for restless leg syndrome. PRAMIPEXOLE DIHYDROCHLORIDE 87652077363 No Longer Active Tesfaye Sherman MD Active MAGNESIUM 400 MG ORAL TABS 1 tab po daily MAGNESI UM 13854808761 Active Chelsea Barba APRN Active SUDAFED 24 HOUR 240 MG ORAL [id number] 1 tab po daily PSEUDOEPHEDRINE HCL 23056546245 Active Chelsea Barba APRN A ctive CETIRIZINE HCL 5 MG TABS Take 1 tablet by mouth daily CETIRIZINE HCL 50043587897 No Longer Active Chelsea Barba APRN Acti ve TRIMETHOPRIM 100 MG TABS 1/2 qd TRIMETHOPRIM 29322773425 No Longer Active Chelsea Barba [employer] Active BACTRIM DS 800-160 MG TAB 1 tab by mouth twice daily 2 TRIMETHOPRIM-SULFAMETHOXAZOLE 24690230898 No Longer Active Tesfaye Sherman MD Active BACTRIM DS 800-160 MG TAB 1 tab by mouth twice daily X 10 DAYS 2 TRIMETHOPRIM-SULFAMETHOXAZOLE 06796973288 No Longer Active Umer Sherman MD Active AMOXICILLIN 500 MG CAPS 1 cap by mouth three times a day AMOXICILLIN 47833127933 No Longer Active Adriana Arredondo Active MECLIZINE HCL 25 MG TAB one tab po qday prn dizziness MECLIZINE HCL 91126092049 Active Tesfaye Sherman MD Active B-12 1000 MCG ORAL LOZG 1 tab po daily CYANOCOBAL STANTON 11136395455 Active Tesfaye Sherman MD Active VITAMIN D3 2000 UNIT TABS 1 daily, for vitamin D deficiency 2014 CHOLECALCIFEROL 57785313291 No Longer Active Tesfaye Sherman MD Active TIZANIDINE HCL 2 MG TABS take 1-2 tablet by mouth at bedtime at 9pm PRN TIZANIDINE HCL 35530404446 Active Tesfaye Owusu Active ZITHROMAX 250 MG TAB 2 po today, then 1 po q days 2-5 AZITHROMYCIN 18154986715 No Longer Active Tesfaye Sherman MD Acti ve BACTRIM DS 800-160 MG TAB 1 tab by mouth twice daily 2 TRIMETHOPRIM-SULFAMETHOXAZOLE 69143703782 No Longer Active Tesfaye Sherman MD Active PRELIEF 340 (65-50) MG (CA-P) ORAL TABS CALCIUM GLYCEROPHOSPHATE 01015155939 Active Tesfaye Sherman MD Active [facility] NIACIN FLUSH FREE 400-100 MG CAPS 1 daily NIACIN-INOSITOL 56320992047 Active Kayla Cooper MD Active DIFLUCAN 150 MG TABS 1 qd FLUCONAZOLE 59850 653345 No Longer Active Kayla Cooper MD Active FLUTICASONE PROPIONATE 50 MCG/ACT SUSP 1 spray each nostril twice daily FLUTICASONE PROPIONATE 35982421530 Active Tesfaye armenta MD Active LOVASTATIN 20 MG TABS Take 1 tablet by mouth daily LOVASTATIN 67967863258 No Longer Active Tesfaye Sherman MD Active MELOXICAM 7.5 MG TABS 1 tablet by mouth daily M ELOXICAM 23792474975 No Longer Active Tesfaye Sherman MD Active GABAPENTIN 300 MG CAPS Take two tablets by mouth every evening GABAPENTIN 14761780541 No Longer Active Edith Burch MD Active OXYCODONE-ACETAMINOPHEN 5-325 MG TABS Take one tablet by mouth every 6 hours as needed. Max 12 tabs/day as needed OXYCODONE-ACETAMINOP HEN 92086653586 Active Tesfaye Sherman MD Active CLONAZEPAM 0.5 MG TABS Take one tablet in the morning and 1.5 table t at 7pm CLONAZEPAM 21049972178 Active Kayla Cooper MD Active BACLOFEN 10 MG TABS Take one tablet by mouth three times a day BACLOFEN 21666134396 Active Kayla Cooper MD Active GABAPENTIN 300 MG CAPS Take two tablets by mouth every evening GABAPENTIN 300 MG CAPS 878842 GABAPENTIN Inactive MELOXICAM 7.5 MG TABS 1 tablet by mouth daily MELOXICAM 7.5 MG TABS 126716 MELOXICAM Inactive LOVASTATIN 20 MG TABS Take 1 tablet by mouth daily 201 02/12/20 LOVASTATIN 20 MG TABS 146835 LOVASTATIN Inactive DIFLUCAN 150 MG TABS 1 qd DIFLUCAN 150 MG T ABS 085287 FLUCONAZOLE Inactive VITAMIN D3 2000 UNIT TABS 1 daily, for vitamin D deficiency 2014 VITAMIN D3 2000 UNIT TABS CHOLECALCIFEROL Inacti ve AMOXICILLIN 500 MG CAPS 1 cap by mouth three times a day AMOXICILLIN 500 MG CAPS 043231 AMOXICILLIN Inactive BACTRIM DS 800-160 MG TAB 1 tab by mouth twice daily X 10 DAYS 2 BACTRIM DS 800-160 MG TAB 19830105 TRIMETHOPRIM-SULFAMETH OXAZOLE Inactive TRIMETHOPRIM 100 MG TABS 1/2 qd TRIMETHOPRI M 100 MG TABS 19830102 TRIMETHOPRIM Inactive CETIRIZINE HCL 5 MG TABS Take 1 tablet by mouth daily CETIRIZINE HCL 5 MG TABS 3195955 CETIRIZINE HCL Inactive PRAMIPEXOLE DIHYDROCHLORIDE 0.125 MG ORAL TABS take 1 tablet po qhs for restless leg syndrome. PRAMIPEXOLE DIHYDROC HLORIDE 0.125 MG ORAL TABS 753124 PRAMIPEXOLE DIHYDROCHLORIDE Inactive MIRTAZAPINE 15 MG ORAL TABS 1/2 tab by mouth at bedtime. MIRTAZAPINE 15 MG ORAL TABS 082022 MIRTAZAPINE Inactive DIFLUCAN 100 MG TAB 1 tablet by mouth daily X 3 DAYS 2 DIFLUCAN 100 MG TAB 157017 FLUCONAZOLE Inactive DIFLUCAN 100 MG TABS 1 tablet by mouth every other day for 2 dos es DIFLUCAN 100 MG TABS 653495 FLUCONAZOLE Inactive CEFTIN 250 MG TAB 1 tablet twice daily x 7 days 11/19 CEFTIN 250 MG TAB 787420 CEFUROXIME AXETIL Inactive CYMBALTA 30 MG CPEP 1 cap by mouth daily with 60mg 201 05/09/11 CYMBALTA 30 MG CPEP 716592 DULOXETINE HCL Inactive CYMBALTA 60 MG CPEP Take 1 tablet by mouth daily 05/13 CYMBALTA 60 MG CPEP 977551 DULOXETINE HCL Inactive BACTRIM DS 800-160 MG TAB 1 tab by mouth twice daily 2 BACTRIM DS 800-160 MG TAB 071179 TRIMETHOPRIM-SULFAMETHOXAZOLE Inac tive ZITHROMAX 250 MG TAB 2 po today, then 1 po q days 2-5 ZITHROMAX 250 MG TAB 3097306 AZITHROMYCIN Inactive BACTRIM DS 800-160 MG TAB [...] ... - Chemistry sodium, serum 144 mmol/L 731-012 9366/06/14 carbon dioxide, venous blood 29.4 mmol/L 21.0-32 .0 potassium, serum 4.4 mmol/L 3.5-5.2 chloride, serum 108 mmol/L 98-107 blood glucose 100 mg/dL 65-110 urea nitrogen, blood 9 mg/dL 7-18 creatinine, serum 0.67 mg/dL 0.55-1.30 alanine aminotransferase (SGPT), serum 24 U/L 12-78 aspartate aminotransferase (SGOT), serum 15 U/L 15-37 calcium, serum 9.3 mg/dL 8.5-10.1 bilirubin, serum, total 0.50 mg/dL 0.00-1.00 cholesterol, serum 268 mg/dL 274-818 5161/06/14 triglyceride, serum, fasting 126 mg/dL 30-200 HDL [...] mg/dL Encounters Code Encounter Date Provider Facility CPT-14396 Level 4 Est. Patient 13:24:25 CDT Stephanie MERCADO [facility] CPT-45684 Level 4 Est. Patient 09:14:56 CDT Tesfaye pearson MD [facility] CPT-87640 Level 4 Est. Patient 18:40:25 [facility] Tesfaye pearson MD [facility] CPT-06102 Level 4 Est. Patient 18:13:07 [facility] Tesfaye pearson MD [facility] CPT-11882 Level 3 Est. Patient 10:46:32 CDT Rj cotto DO [facility] CPT-68121 Level 4 Est. Patient 20:19:25 CDT Tesfaye pearson MD [facility] CPT-07419 Level 3 Est. Patient 09:07:31 CDT Tesfaye pearson MD [facility] CPT-38125 Level 4 Est. Patient 13:12:56 CDT Tesfaye pearson MD [facility] CPT-98619 Level 4 Est. Patient 21:24:55 [facility] Tesfaye pearson MD [facility] CPT-54284 Level 3 Est. Patient 13:45:04 [facility] Tesfaye pearson MD [facility] CPT-10815 Level 4 Est. Patient 13:50:45 CDT Tesfaye pearson MD [facility] CPT-05605 Level 3 Est. Patient 10:16:10 CDT Tesfaye pearson MD [facility] CPT-73811 Level 3 Est. Patient 16:36:07 [facility] Kayla jameson MD [facility] CPT-29988 Level 4 Est. Patient 16:00:14 [facility] Tesfaye pearson MD [facility] CPT-99126 Level 4 Est. Patient 11:02:24 [facility] Tesfaye pearson MD [facility] CPT-56746 Level 3 Est. Patient 20:21:43 [facility] Kayla jameson MD [facility] CPT-30978 Level 3 Est. Patient 13:27:28 [facility] Kayla jameson MD [facility] CPT-78565 Level 4 Est. Patient 15:57:17 [facility] Tesfaye pearson MD [facility] CPT-98730 Level 3 New Patient 13:25:47 CDT Tesfaye kidd MD [facility] CPT-52540 Level 3 New Patient 17:22:21 CDT Kayla angel MD [facility] Procedures Code Procedure Name Date Entry Date Standard Desc ription CPT-54254 Bone Density - XRAY USE ONLY 11:43:58 CDT 2 CPT-96885 Bone Density - XRAY USE ONLY 10:05:16 CDT 2 CPT-49168 Prv Med New Pt 40-64 yrs 18:19:25 CDT 2016 CPT-77644 Foot, right, comp min 3V - XRAY USE ONLY 10:38:34 CDT CPT-G0439 Subsequent Annual Wellness Exam 13:55:04 CDT CPT-G0438 Initial Annual Wellness Exam 11:23:17 CD T CPT-J2930 Solu Medrol 125 mg (Methyl Prednisolone Sodium Succinate) 17:29:12 [facility] CPT-84971 Abx/Therapy Injection 17:29:11 [facility] CPT-J2930 Solu Medrol 125 mg (Methyl Prednisolone Sodium Succinate) 12:34:38 [facility] CPT-J3420 Vitamin B12 1000mcg (Cyanocobalamin) 09:12:55 CDT CPT-J3420 Vitamin B12 1000mcg (Cyanocobalamin) 16:28:06 [facility] CPT-77204 Venipuncture Draw Fee 08:39:53 CDT CPT-J3420 Vitamin B12 1000mcg (Cyanocobalamin) 08:46:22 CDT CPT-27773 Abx/Therapy Injection 08:46:22 CDT CPT-J3420 Vitamin B12 1000mcg (Cyanocobalamin) 08:41:26 CDT CPT-15893 Abx/Therapy Injection 08:41:26 CDT CPT-J3420 Vitamin B12 1000mcg (Cyanocobalamin) 08:57:15 CDT CPT-83681 Abx/Therapy Injection 08:57:15 CDT CPT-J3420 Vitamin B12 1000mcg (Cyanocobalamin) 10:59:03 CDT CPT-51754 Abx/Therapy Injection 10:59:03 CDT CPT-J3420 Vitamin B12 1000mcg (Cyanocobalamin) 15:05:39 CDT CPT-06348 Abx/Therapy Injection 15:05:39 CDT CPT-J3420 Vitamin B12 1000mcg (Cyanocobalamin) 13:50:45 CDT CPT-J3420 Vitamin B12 1000mcg (Cyanocobalamin) 08:48:55 CDT CPT-70812 Abx/Therapy Injection 08:48:55 CDT CPT-J3420 Vitamin B12 1000mcg (Cyanocobalamin) 09:14:54 CDT CPT-73740 Abx/Therapy Injection 09:14:54 CDT CPT-J3420 Vitamin B12 1000mcg (Cyanocobalamin) 09:06:06 CDT CPT-25183 Abx/Therapy Injection 09:06:06 CDT CPT-J3420 Vitamin B12 1000mcg (Cyanocobalamin) 09:49:14 CDT CPT-91224 Abx/Therapy Injection 09:49:14 CDT CPT-J3420 Vitamin B12 1000mcg (Cyanocobalamin) 09:10:30 [facility] CPT-80456 Abx/Therapy Injection 09:10:30 [facility] CPT-J3420 Vitamin B12 1000mcg (Cyanocobalamin) 09:11:07 [facility] CPT-84402 Abx/Therapy Injection 09:11:07 [facility] CPT-J3420 Vitamin B12 1000mcg (Cyanocobalamin) 09:57:03 [facility] CPT-28474 Abx/Therapy Injection 09:57:03 [facility] CPT-J3420 Vitamin B12 1000mcg (Cyanocobalamin) 09:23:21 [facility] CPT-24658 Abx/Therapy Injection 09:23:21 [facility] CPT-56827 Urine Dip (Floor Use Only) 20:21:44 [facility] 201 02/12/11 CPT-50632 UA Dip Auto (Floor Use Only) 10:04:39 [facility] 2 CPT-98563 Urine Dip (Floor Use Only) 13:27:28 [facility] 201 02/12/01 CPT-26439 Bladder Scan 13:27:28 [facility] CPT-60899 Abd single AP View 14:30:51 [facility] CPT-OV Office Visit 10:15:43 CDT CPT-08717 Urine Dip (Floor Use Only) 17:22:21 CDT 201 02/09/02 CPT-20760 Bladder Scan 17:22:21 CDT
--- OUTSIDE RECORDS SUMMARY | 2020-05-05 12:44 | XMS REPORT | Clinical Summary ---
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 Use sparingly OXYCODONE-ACETAMINOPHEN 27911492217 Active Tesfaye Sherman MD Active PREDNISONE 20 MG ORAL TABLET 1 tab twice daily for 3 d ay, then one daily for three days PREDNISONE 36562648012 No Longer Active Tesfaye Sherman MD Active PROAIR HFA 108 (90 BASE) MCG/ACT INHALATION AEROSOL SO LUTION 1 puff every 6 hours as needed ALBUTEROL SULFATE 26140940966 Active Peck nda Raida Active MECLIZINE HCL 25 MG ORAL TABLET one 4 times a day as needed for dizziness MECLIZINE HCL 50468805945 Active Laurence Dominguez Active DIFLUCAN 100 MG ORAL TABLET 1 tablet by mouth daily FLUCONAZOLE 57225218446 Active Laurence Dominguez Active AMOXICILLIN 500 MG ORAL CAPSULE 1 cap by mouth three times a day AMOXICILLIN 07928758134 No Longer Active Laurence Dominguez Acti ve VENLAFAXINE HCL 75 MG ORAL TABLET 1 am 1/2 at noon VENLAFAXINE HCL 73275482579 Active Tesfaye Sherman MD Active DIFLUCAN 100 MG ORAL TABLET 1 tablet by mouth daily 20 19/08/26 FLUCONAZOLE 57560845738 No Longer Active Tesfaye Sherman MD Acti ve BACTRIM DS 800-160 MG ORAL TABLET 1 tab by mouth twice daily 201 05/10/28 TRIMETHOPRIM-SULFAMETHOXAZOLE 45746944443 No Longer Active Fer Dominguez Active FOSAMAX 70 MG ORAL TABLET 1 po qweek. Take 30min prio r to first food/drink. Avoid lying down x 1 hour. ALENDRONATE SODIUM 17448488 144 No Longer Active Laurence Dominguez Active REPHRESH PRO-B ORAL CAPSULE 1 tablet daily LACT OBACILLUS 12787441220 Active Edith Burch MD Active CYMBALTA 60 MG ORAL CAPSULE DELAYED RELEASE PARTICLES Take 1 tablet by mouth daily DULOXETINE HCL 16345670155 No Longer Active Edith Burch MD Active CYMBALTA 30 MG ORAL CAPSULE DELAYED RELEASE PARTICLES 1 cap by mouth daily with 60mg DULOXETINE HCL 96960316587 No Longer Active Jordan Burch MD Active FISH OIL 1000 MG ORAL CAPSULE DELAYED RELEASE 1 pill b y mouth daily for cholesterol OMEGA-3 FATTY ACIDS 20410716416 Active Cee Jaffe LPN Active RED YEAST RICE 600 MG ORAL CAPSULE 1 pill by mouth daily RED YEAST RICE EXTRACT 85264545284 Active Rosa Jaffe LPN Activ e DIFLUCAN 100 MG ORAL TABLET 1 tablet by mouth daily 20 19/03/05 FLUCONAZOLE 13835622377 No Longer Active Tesfaye Sherman MD Acti ve BACTRIM DS 800-160 MG ORAL TABLET 1 tab by mouth twice daily 201 05/06/28 TRIMETHOPRIM-SULFAMETHOXAZOLE 53686530218 No Longer Active Umer Sherman MD Active BACTRIM DS 800-160 MG ORAL TABLET 1 tab by mouth twice daily 201 05/04/15 TRIMETHOPRIM-SULFAMETHOXAZOLE 31620902425 No Longer Active Umer Sherman MD Active DIFLUCAN 150 MG ORAL TABLET 1 tablet by mouth daily 20 18/09/20 FLUCONAZOLE 66057239738 No Longer Active Tesfaye Sherman MD Acti ve BACTRIM DS 800-160 MG ORAL TABLET 1 tab by mouth twice daily 201 04/13/17 TRIMETHOPRIM-SULFAMETHOXAZOLE 81478887652 No Longer Active Umer Sherman MD Active ROPINIROLE HCL 0.25 MG ORAL TABLET 1 TAB PO Q HS ROPINIROLE HCL 94818119814 Active Tesfaye Sherman MD Active CEFTIN 250 MG ORAL TABLET 1 tablet twice daily x 7 days CEFUROXIME AXETIL 91689434212 No Longer Active Tesfaye Sherman MD Active DIFLUCAN 100 MG ORAL TABLET 1 tablet by mouth every other da y for 2 doses FLUCONAZOLE 27672072064 No Longer Active Tesfaye barron MD Active DIFLUCAN 100 MG ORAL TABLET 1 tablet by mouth daily X 3 DAYS 201 04/09/01 FLUCONAZOLE 19340793447 No Longer Active Rj Lyons tidragan MIRTAZAPINE 15 MG ORAL TABLET 1/2 tab by mouth at bedtime. 03/13 MIRTAZAPINE 13854786536 No Longer Active Tesfaye Sherman MD Active BACTRIM DS 800-160 MG ORAL TABLET 1 tab by mouth twice daily 201 04/09/01 TRIMETHOPRIM-SULFAMETHOXAZOLE 09982085916 No Longer Active Umer Sherman MD Active PRAMIPEXOLE DIHYDROCHLORIDE 0.125 MG ORAL TABLET take 1 tablet po qhs for restless leg syndrome. PRAMIPEXOLE DIHYDROCHLORI DE 48233857572 No Longer Active Tesfaye Sherman MD Active MAGNESIUM 400 MG ORAL TABLET 1 tab po daily MAGNR[place]etta GONSALVESUM 33372842369 Active Chelsea Cardenas APRN Active SUDAFED 24 HOUR 240 MG ORAL TABLET EXTENDED RELEASE 24 HOUR 1 tab po daily PSEUDOEPHEDRINE HCL 17998150810 Active Chelsea Cardenas APRN Active CETIRIZINE HCL 5 MG ORAL TABLET Take 1 tablet by mouth daily CETIRIZINE HCL 00530624338 No Longer Active Chelsea Cardenas APRN Activ e TRIMETHOPRIM 100 MG ORAL TABLET 1/2 qd TRIM ETHOPRIM 40427050824 No Longer Active Chelsea Cardenas APRN Active BACTRIM DS 800-160 MG ORAL TABLET 1 tab by mouth twice daily 201 04/04/11 TRIMETHOPRIM-SULFAMETHOXAZOLE 24116228429 No Longer Active D patricia Sherman MD Active BACTRIM DS 800-160 MG ORAL TABLET 1 tab by mouth twice daily X 10 DAYS TRIMETHOPRIM-SULFAMETHOXAZOLE 84082235689 No Longer Active Tesfaye Sherman MD Active AMOXICILLIN 500 MG ORAL CAPSULE 1 cap by mouth three times a day AMOXICILLIN 00864776022 No Longer Active Adriana Arredondo Active MECLIZINE HCL 25 MG ORAL TABLET one tab po qday prn dizziness 09/08 MECLIZINE HCL 89569952824 Active Tesfaye Sherman MD Active B-12 1000 MCG ORAL LOZENGE 1 tab po daily CYANO COBALAMIN 31315274862 Active Tesfaye Sherman MD Active VITAMIN D3 2000 UNIT ORAL TABLET 1 daily, for vitamin D deficien cy CHOLECALCIFEROL 21961028991 No Longer Active Tesfaye Shermna MD Active TIZANIDINE HCL 2 MG ORAL TABLET take 1-2 tablet by mo uth every day at bedtime at 9pm PRN TIZANIDINE HCL 80125172882 Active Tesfaye hewitt MD Active ZITHROMAX 250 MG ORAL TABLET 2 po today, then 1 po q days 2-5 20 15/02/10 AZITHROMYCIN 57604085169 No Longer Active Tesfaye Sherman MD Active BACTRIM DS 800-160 MG ORAL TABLET 1 tab by mouth twice daily 201 03/03/23 TRIMETHOPRIM-SULFAMETHOXAZOLE 57253603238 No Longer Active Umer Sherman MD Active PRELIEF 340 (65-50) MG (CA-P) ORAL TABLET CALCIUM GLYCEROPHOSPHATE 98930972189 Active Tesfaye Sherman MD Acti ve [facility] NIACIN FLUSH FREE 400-100 MG ORAL CAPSULE 1 daily NIACIN-INOSITOL 13154984715 Active Kayla Cooper MD Activ e DIFLUCAN 150 MG ORAL TABLET 1 qd FLUCONAZOL E 50326285115 No Longer Active Kayla Cooper MD Active FLUTICASONE PROPIONATE 50 MCG/ACT NASAL SUSPENSION 1 spray each nostril twice daily FLUTICASONE PROPIONATE 42155068913 Active Umer Sherman MD Active LOVASTATIN 20 MG ORAL TABLET Take 1 tablet by mouth daily LOVASTATIN 18019818068 No Longer Active Tesfaye Sherman MD Acti ve MELOXICAM 7.5 MG ORAL TABLET 1 tablet by mouth daily 2 MELOXICAM 78779731299 No Longer Active Tesfaye Sherman MD Acti ve GABAPENTIN 300 MG ORAL CAPSULE Take two tablets by mouth every e vening GABAPENTIN 12958188989 No Longer Active Edith Burch MD A ctive CLONAZEPAM 0.5 MG ORAL TABLET Take one tablet in the m orning and 1.5 tablet at 7pm CLONAZEPAM 48985412118 Active Kayla Cooper MD Active BACLOFEN 10 MG ORAL TABLET Take one tablet by mouth three times a d ay BACLOFEN 27425894834 Active Kayla Cooper MD Active GABAPENTIN 300 MG ORAL CAPSULE Take two tablets by mouth every e vening GABAPENTIN 300 MG ORAL CAPSULE 232841 GABAPENTIN I nactive MELOXICAM 7.5 MG ORAL TABLET 1 tablet by mouth daily 2 MELOXICAM 7.5 MG ORAL TABLET 126209 MELOXICAM Inactive LOVASTATIN 20 MG ORAL TABLET Take 1 tablet by mouth daily LOVASTATIN 20 MG ORAL TABLET 545879 LOVASTATIN Inactive DIFLUCAN 150 MG ORAL TABLET 1 qd DIFLUCAN 150 MG ORAL TABLET 678535 FLUCONAZOLE Inactive VITAMIN D3 2000 UNIT ORAL TABLET 1 daily, for vitamin D deficien cy VITAMIN D3 2000 UNIT ORAL TABLET CHOLECALCIFEROL Inactive AMOXICILLIN 500 MG ORAL CAPSULE 1 cap by mouth three times a day AMOXICILLIN 500 MG ORAL CAPSULE 028633 AMOXICILLIN Inactive BACTRIM DS 800-160 MG ORAL TABLET 1 tab by mouth twice daily X 10 DAYS BACTRIM DS 800-160 MG ORAL TABLET 901924 TRIMETHOPRIM-SULFAMETHOXAZOLE Inactive TRIMETHOPRIM 100 MG ORAL TABLET 1/2 qd 7 TRIMETHOPRIM 100 MG ORAL TABLET 720457 TRIMETHOPRIM Inactive CETIRIZINE HCL 5 MG ORAL TABLET Take 1 tablet by mouth daily CETIRIZINE HCL 5 MG ORAL TABLET 3678809 CETIRIZINE HCL Inactive PRAMIPEXOLE DIHYDROCHLORIDE 0.125 MG ORAL TABLET take 1 tablet po qhs for restless leg syndrome. PRAMIPEXOLE DIHYD ROCHLORIDE 0.125 MG ORAL TABLET 441041 PRAMIPEXOLE DIHYDROCHLORIDE Inactive MIRTAZAPINE 15 MG ORAL TABLET 1/2 tab by mouth at bedtime. 03/13 MIRTAZAPINE 15 MG ORAL TABLET 037102 MIRTAZAPINE In active DIFLUCAN 100 MG ORAL TABLET 1 tablet by mouth daily X 3 DAYS 201 04/09/01 DIFLUCAN 100 MG ORAL TABLET 346144 FLUCONAZOLE Inac tive DIFLUCAN 100 MG ORAL TABLET 1 tablet by mouth every other da y for 2 doses DIFLUCAN 100 MG ORAL TABLET 715987 FLUCONAZOLE Inactive CEFTIN 250 MG ORAL TABLET 1 tablet twice daily x 7 days CEFTIN 250 MG ORAL TABLET 676182 CEFUROXIME AXETIL Inactive CYMBALTA 30 MG ORAL CAPSULE DELAYED RELEASE PARTICLES 1 cap by mouth daily with 60mg CYMBALTA 30 MG ORAL CAPSULE DELAYED RELEASE PARTICLES 217142 DULOXETINE HCL Inactive CYMBALTA 60 MG ORAL CAPSULE DELAYED RELEASE PARTICLES Take 1 tablet by mouth daily CYMBALTA 60 MG ORAL CAPSULE DELAYED RELEA SE PARTICLES 347335 DULOXETINE HCL Inactive FOSAMAX 70 MG ORAL TABLET 1 po qweek. Take 30min prio r to first food/drink. Avoid lying down x 1 hour. FOSAMAX 70 MG ORAL TA BLET 879478 ALENDRONATE SODIUM Inactive DIFLUCAN 100 MG ORAL TABLET 1 tablet by mouth daily 19/08/26 DIFLUCAN 100 MG ORAL TABLET 080531 FLUCONAZOLE Inactive PREDNISONE 20 MG ORAL TABLET 1 tab twice daily for 3 d ay, then one daily for three days PREDNISONE 20 MG ORAL TABLET 550834 PREDNIS ONE Inactive BACTRIM DS 800-160 MG ORAL TABLET 1 tab by mouth twice daily 201 03/03/23 BACTRIM DS 800-160 MG ORAL TABLET 19830105 TRIMETHOPRIM-SULFAMETHOXAZOLE Inactive ZITHROMAX 250 MG ORAL TABLET 2 po today, then 1 po q days 2-5 20 15/02/10 ZITHROMAX 250 MG ORAL TABLET 151541 AZITHROMYCIN [place] ctive BACTRIM DS 800-160 MG ORAL TABLET [...] 05/06/28 BACTRIM DS 800-160 MG ORAL TABLET 370299 TRIMETHOPRIM-SULFAMETHOXAZOLE Inactive DIFLUCAN 100 MG ORAL TABLET 1 tablet by mouth daily 19/03/05 DIFLUCAN 100 MG ORAL TABLET 460938 FLUCONAZOLE Inactive BACTRIM DS 800-160 MG ORAL TABLET 1 tab by mouth twice daily 201 05/10/28 BACTRIM DS 800-160 MG ORAL TABLET 904776 TRIMETHOPRIM-SULFAMETHOXAZOLE Inactive AMOXICILLIN 500 MG ORAL CAPSULE 1 cap by mouth three times a day AMOXICILLIN 500 MG ORAL CAPSULE 578971 AMOXICILLIN Inactive Advance Directives Directive Description Start Date PERMISSION TO SHARE DISCUSSED WITH PATIENT -- NO DECISION 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 - Chemistry sodium, serum 144 mmol/L 543-055 0613/06/14 carbon dioxide, venous blood 29.4 mmol/L 21.0-32 .0 potassium, serum 4.4 mmol/L 3.5-5.2 chloride, serum 108 mmol/L 98-107 blood glucose 100 mg/dL 65-110 urea nitrogen, blood 9 mg/dL 7-18 creatinine, serum 0.67 mg/dL 0.55-1.30 alanine aminotransferase (SGPT), serum 24 U/L 12-78 aspartate aminotransferase (SGOT), serum 15 U/L 15-37 calcium, serum 9.3 mg/dL 8.5-10.1 bilirubin, serum, total 0.50 mg/dL 0.00-1.00 cholesterol, serum 268 mg/dL 410-580 4492/06/14 triglyceride, serum, fasting 126 mg/dL 30-200 HDL cholesterol, serum 51 mg/dL 32-96 LDL cholesterol, serum 192 mg/dL 0-130 TSH 0.83 m[iU]/mL 0.36-3.74 thyroxine, serum, free 1.03 ng/dL 0.76-1.46 uric acid, serum 3.2 mg/dL 2.6-7.2 Lab Report: Comp. Metabolic Panel, [facility] - Chemistry sodium, serum 141 mmol/L 906-887 7883/01/26 carbon dioxide, venous blood 29.5 mmol/L 21.0-32 [...] mg/dL Encounters Code Encounter Date Provider Facility CPT-79135 Level 4 Est. 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 Patient 13:55:29 TRUCK H[employer]PER Tesfaye pearson MD [facility] CPT-06959 Level 4 Est. Patient 17:07:34 TRUCK HOPPER Tesfaye pearson MD [facility] CPT-33163 Level 4 Est. Patient 13:56:54 CDT Tesfaye pearson MD [facility] CPT-20037 Level 4 Est. Patient 13:24:25 CDT Chelsea sanz APRN [facility] CPT-60218 Level 4 Est. Patient 09:14:56 CDT Tesfaye pearson MD [facility] CPT-71392 Level 4 Est. Patient 18:40:25 TRUCK HOPPER Tesfaye pearson MD [facility] CPT-22404 Level 4 Est. Patient 18:13:07 TRUCK HOPPER Tesfaye pearson MD [facility] CPT-43584 Level 3 Est. Patient 10:46:32 CDT Rj cotto DO [facility] CPT-51854 Level 4 Est. Patient 20:19:25 CDT Tesfaye pearson MD [facility] CPT-99077 Level 3 Est. Patient 09:07:31 CDT Tesfaye pearson MD [facility] CPT-59064 Level 4 Est. Patient 13:12:56 CDT Tesfaye pearson MD [facility] CPT-70754 Level 4 Est. Patient 21:24:55 TRUCK HOPPER Tesfaye pearson MD [facility] CPT-62189 Level 3 Est. Patient 13:45:04 TRUCK HOPPER Tesfaye pearson MD [facility] CPT-22749 Level 4 Est. Patient 13:50:45 CDT Tesfaye pearson MD [facility] CPT-21573 Level 3 Est. Patient 10:16:10 CDT Tesfaye pearson MD [facility] CPT-87669 Level 3 Est. Patient 16:36:07 TRUCK HOPPER Kayla jameson MD [facility] CPT-71934 Level 4 Est. Patient 16:00:14 TRUCK HOPPER Tesfaye pearson MD [facility] CPT-24551 Level 4 Est. Patient 11:02:24 TRUCK HOPPER Tesfaye pearson MD [facility] CPT-41386 Level 3 Est. Patient 20:21:43 TRUCK HOPPER Kayla jameson MD [facility] CPT-38668 Level 3 Est. Patient 13:27:28 TRUCK HOPPER Kayla jameson MD [facility] CPT-29718 Level 4 Est. Patient 15:57:17 TRUCK HOPPER Tesfaye pearson MD [facility] CPT-05051 Level 3 New Patient 13:25:47 CDT Tesfaye kidd MD [facility] CPT-24813 Level 3 New Patient 17:22:21 CDT Kayla angel MD [facility] Procedures Code Procedure Name Date Entry Date Standard Desc ription CPT-86703 Bone Density - XRAY USE ONLY 11:43:58 CDT 2 CPT-54471 Bone Density - XRAY USE ONLY 10:05:16 CDT 2 CPT-45537 Prv Med New Pt 40-64 yrs 18:19:25 CDT 2016 CPT-81426 Foot, right, comp min 3V - XRAY USE ONLY 10:38:34 CDT CPT-G0439 [facility] Annual Wellness Exam 13:55:04 CDT CPT-G0438 Initial Annual Wellness Exam 11:23:17 CD T CPT-J2930 Solu Medrol 125 mg (Methyl Prednisolone Sodium Succinate) 17:29:12 TRUCK HOPPER CPT-23632 Abx/Therapy Injection 17:29:11 TRUCK HOPPER CPT-J2930 Solu Medrol 125 mg (Methyl Prednisolone Sodium Succinate) 12:34:38 TRUCK HOPPER CPT-J3420 Vitamin B12 1000mcg (Cyanocobalamin) 09:12:55 CDT CPT-J3420 Vitamin B12 1000mcg (Cyanocobalamin) 16:28:06 TRUCK HOPPER CPT-32925 Venipuncture Draw Fee 08:39:53 CDT CPT-J3420 Vitamin B12 1000mcg (Cyanocobalamin) 08:46:22 CDT CPT-31802 Abx/Therapy Injection 08:46:22 CDT CPT-J3420 Vitamin B12 1000mcg (Cyanocobalamin) 08:41:26 CDT CPT-69574 Abx/Therapy Injection 08:41:26 CDT CPT-J3420 Vitamin B12 1000mcg (Cyanocobalamin) 08:57:15 CDT CPT-79135 Abx/Therapy Injection 08:57:15 CDT CPT-J3420 Vitamin B12 1000mcg (Cyanocobalamin) 10:59:03 CDT CPT-06278 Abx/Therapy Injection 10:59:03 CDT CPT-J3420 Vitamin B12 1000mcg (Cyanocobalamin) 15:05:39 CDT CPT-62922 Abx/Therapy Injection 15:05:39 CDT CPT-J3420 Vitamin B12 1000mcg (Cyanocobalamin) 13:50:45 CDT CPT-J3420 Vitamin B12 1000mcg (Cyanocobalamin) 08:48:55 CDT CPT-38386 Abx/Therapy Injection 08:48:55 CDT CPT-J3420 Vitamin B12 1000mcg (Cyanocobalamin) 09:14:54 CDT CPT-94682 Abx/Therapy Injection 09:14:54 CDT CPT-J3420 Vitamin B12 1000mcg (Cyanocobalamin) 09:06:06 CDT CPT-34576 Abx/Therapy Injection 09:06:06 CDT CPT-J3420 Vitamin B12 1000mcg (Cyanocobalamin) 09:49:14 CDT CPT-94888 Abx/Therapy Injection 09:49:14 CDT CPT-J3420 Vitamin B12 1000mcg (Cyanocobalamin) 09:10:30 TRUCK HOPPER CPT-13866 Abx/Therapy Injection 09:10:30 TRUCK HOPPER CPT-J3420 Vitamin B12 1000mcg (Cyanocobalamin) 09:11:07 TRUCK HOPPER CPT-73802 Abx/Therapy Injection 09:11:07 TRUCK HOPPER CPT-J3420 Vitamin B12 1000mcg (Cyanocobalamin) 09:57:03 TRUCK HOPPER CPT-80228 Abx/Therapy Injection 09:57:03 TRUCK HOPPER CPT-J3420 Vitamin B12 1000mcg (Cyanocobalamin) 09:23:21 TRUCK HOPPER CPT-66523 Abx/Therapy Injection 09:23:21 TRUCK HOPPER CPT-46758 Urine Dip (Floor Use Only) 20:21:44 TRUCK HOPPER 201 02/12/11 CPT-24499 UA Dip Auto (Floor Use Only) 10:04:39 TRUCK HOPPER 2 CPT-44957 Urine Dip (Floor Use Only) 13:27:28 TRUCK HOPPER 201 02/12/01 CPT-19081 Bladder Scan 13:27:28 TRUCK HOPPER CPT-87348 Abd single AP View 14:30:51 TRUCK HOPPER CPT-OV Office Visit 10:15:43 CDT CPT-96194 Urine Dip (Floor Use Only) 17:22:21 CDT 201 02/09/02 CPT-70894 Bladder Scan 17:22:21 CDT
--- OUTSIDE RECORDS SUMMARY | 2020-05-05 12:44 | XMS REPORT | Clinical Summary ---
Author Author Talon, Jeri Wood Organization [employer] Address Unknown Phone Unavailable Allergies, Adverse Reactions, [...] 1 tablet by mouth daily FLU CONAZOLE 58768201299 Active Tesfaye Sherman MD Active BACTRIM DS 800-160 MG TAB 1 tab by mouth twice daily 2 TRIMETHOPRIM-SULFAMETHOXAZOLE 45920993177 Active Tesfaye Sherman MD Active BACTRIM DS 800-160 MG TAB 1 tab by mouth twice daily 2 TRIMETHOPRIM-SULFAMETHOXAZOLE 10330940975 No Longer Active Tesfaye Sherman MD Active DIFLUCAN 150 MG TAB 1 tablet by mouth daily FLU CONAZOLE 05124589393 No Longer Active Tesfaye Sherman MD Active BACTRIM DS 800-160 MG TAB 1 tab by mouth twice daily 2 TRIMETHOPRIM-SULFAMETHOXAZOLE 69410028618 No Longer Active Tesfaye Sherman MD Active ROPINIROLE HCL 0.25 MG ORAL TABS 1 TAB PO Q HS ROPINIROLE HCL 21620381418 Active Tesfaye Sherman MD Active CYMBALTA 30 MG CPEP 1 cap by mouth daily with 60mg DULOXETINE HCL 07923135962 Active Tesfaye Sherman MD Active CEFTIN 250 MG TAB 1 tablet twice daily x 7 days 11/19 CEFUROXIME AXETIL 04694050193 No Longer Active Tesfaye Sherman MD Acti ve DIFLUCAN 100 MG TABS 1 tablet by mouth every other day for 2 dos es FLUCONAZOLE 11595993132 No Longer Active Tesfaye Sherman MD Active DIFLUCAN 100 MG TAB 1 tablet by mouth daily X 3 DAYS 2 FLUCONAZOLE 79078693906 No Longer Active Rj Moss DO Active MIRTAZAPINE 15 MG ORAL TABS 1/2 tab by mouth at bedtime. MIRTAZAPINE 33447878038 No Longer Active Tesfaye Sherman MD Acti ve BACTRIM DS 800-160 MG TAB 1 tab by mouth twice daily 2 TRIMETHOPRIM-SULFAMETHOXAZOLE 41400025647 No Longer Active Tesfaye Sherman MD Active PRAMIPEXOLE DIHYDROCHLORIDE 0.125 MG ORAL TABS take 1 tablet po qhs for restless leg syndrome. PRAMIPEXOLE DIHYDROCHLORIDE 18000206753 No Longer Active Tesfaye Sherman MD Active MAGNESIUM 400 MG ORAL TABS 1 tab po daily MAGNESI UM 99691974104 Active Chelsea Barba APRN Active SUDAFED 24 HOUR 240 MG ORAL [id number] 1 tab po daily PSEUDOEPHEDRINE HCL 59585566594 Active Chelsea Barba APRN A ctive CETIRIZINE HCL 5 MG TABS Take 1 tablet by mouth daily CETIRIZINE HCL 94351252700 No Longer Active Chelsea Barba APRN Acti ve TRIMETHOPRIM 100 MG TABS 1/2 qd TRIMETHOPRIM 96361229616 No Longer Active Chelsea Barba APRN Active BACTRIM DS 800-160 MG TAB 1 tab by mouth twice daily 2 TRIMETHOPRIM-SULFAMETHOXAZOLE 10299942689 No Longer Active Tesfaye Sherman MD Active BACTRIM DS 800-160 MG TAB 1 tab by mouth twice daily X 10 DAYS 2 TRIMETHOPRIM-SULFAMETHOXAZOLE 41245240581 No Longer Active D patricia Sherman MD Active AMOXICILLIN 500 MG CAPS 1 cap by mouth three times a day AMOXICILLIN 52409748681 No Longer Active Adriana Arredondo Active MECLIZINE HCL 25 MG TAB one tab po qday prn dizziness MECLIZINE HCL 58182350591 Active Tesfaye Sherman MD Active B-12 1000 MCG ORAL LOZG 1 tab po daily CYANOCOBAL STANTON 82594448757 Active Tesfaye Sherman MD Active VITAMIN D3 2000 UNIT TABS 1 daily, for vitamin D deficiency 2014 CHOLECALCIFEROL 42543371732 No Longer Active Tesfaye Sherman MD Active TIZANIDINE HCL 2 MG TABS take 1-2 tablet by mouth ev [place] day at bedtime at 9pm PRN TIZANIDINE HCL 81961651794 Active Tesfaye Owusu Active ZITHROMAX 250 MG TAB 2 po today, then 1 po q days 2-5 AZITHROMYCIN 23754591833 No Longer Active Tesfaye Sherman MD Acti ve BACTRIM DS 800-160 MG TAB 1 tab by mouth twice daily 2 TRIMETHOPRIM-SULFAMETHOXAZOLE 60138072299 No Longer Active Tesfaye Sherman MD Active PRELIEF 340 (65-50) MG (CA-P) ORAL TABS CALCIUM GLYCEROPHOSPHATE 96641195879 Active Tesfaye Sherman MD Active [facility] NIACIN FLUSH FREE 400-100 MG CAPS 1 daily NIACIN-INOSITOL 64308141903 Active Kayla Cooper MD Active DIFLUCAN 150 MG TABS 1 qd FLUCONAZOLE 05921 140970 No Longer Active Kayla Cooper MD Active FLUTICASONE PROPIONATE 50 MCG/ACT SUSP 1 spray each nostril twice daily FLUTICASONE PROPIONATE 89149690718 Active Tesfaye armenta MD Active LOVASTATIN 20 MG TABS Take 1 tablet by mouth daily LOVASTATIN 27692217971 No Longer Active Tesfaye Sherman MD Active MELOXICAM 7.5 MG TABS 1 tablet by mouth daily M ELOXICAM 10528239635 No Longer Active Tesfaye Sherman MD Active GABAPENTIN 300 MG CAPS Take two tablets by mouth every evening GABAPENTIN 00764992698 No Longer Active Edith Burch MD Active OXYCODONE-ACETAMINOPHEN 5-325 MG TABS Take one tablet by mouth every 6 hours as needed. Max 12 tabs/day as needed OXYCODONE-ACETAMINOP HEN 29200848852 Active Tesfaye Sherman MD Active CYMBALTA 60 MG CPEP Take 1 tablet by mouth daily D ULOXETINE HCL 25201750869 Active Kayla Cooper MD Active CLONAZEPAM 0.5 MG TABS Take one tablet in the morning and 1.5 table t at 7pm CLONAZEPAM 93439475564 Active Kayla Cooper MD Active BACLOFEN 10 MG TABS Take one tablet by mouth three times a day BACLOFEN 38865825766 Active Kayla Cooper MD Active GABAPENTIN 300 MG CAPS Take two tablets by mouth every evening GABAPENTIN 300 MG CAPS 152538 GABAPENTIN Inactive MELOXICAM 7.5 MG TABS 1 tablet by mouth daily MELOXICAM 7.5 MG TABS 962523 MELOXICAM Inactive LOVASTATIN 20 MG TABS Take 1 tablet by mouth daily 201 02/12/20 LOVASTATIN 20 MG TABS 932061 LOVASTATIN Inactive DIFLUCAN 150 MG TABS 1 qd DIFLUCAN 150 MG T ABS 19760712 FLUCONAZOLE Inactive VITAMIN D3 2000 UNIT TABS 1 daily, for vitamin D deficiency 2014 VITAMIN D3 2000 UNIT TABS CHOLECALCIFEROL Inacti ve AMOXICILLIN 500 MG CAPS 1 cap by mouth three times a day AMOXICILLIN 500 MG CAPS 445634 AMOXICILLIN Inactive BACTRIM DS 800-160 MG TAB 1 tab by mouth twice daily X 10 DAYS 2 BACTRIM DS 800-160 MG TAB 947149 TRIMETHOPRIM-SULFAMETH OXAZOLE Inactive TRIMETHOPRIM 100 MG TABS 1/2 qd TRIMETHOPRI M 100 MG TABS 650269 TRIMETHOPRIM Inactive CETIRIZINE HCL 5 MG TABS Take 1 tablet by mouth daily CETIRIZINE HCL 5 MG TABS 6231620 CETIRIZINE HCL Inactive PRAMIPEXOLE DIHYDROCHLORIDE 0.125 MG ORAL TABS take 1 tablet po qhs for restless leg syndrome. PRAMIPEXOLE DIHYDROC HLORIDE 0.125 MG ORAL TABS 769598 PRAMIPEXOLE DIHYDROCHLORIDE Inactive MIRTAZAPINE 15 MG ORAL TABS 1/2 tab by mouth at bedtime. MIRTAZAPINE 15 MG ORAL TABS 336286 MIRTAZAPINE Inactive DIFLUCAN 100 MG TAB 1 tablet by mouth daily X 3 DAYS 2 DIFLUCAN 100 MG TAB 152709 FLUCONAZOLE Inactive DIFLUCAN 100 MG TABS 1 tablet by mouth every other day for 2 dos es DIFLUCAN 100 MG TABS 551879 FLUCONAZOLE Inactive CEFTIN 250 MG TAB 1 tablet twice daily x 7 days 11/19 CEFTIN 250 MG TAB 072653 CEFUROXIME AXETIL Inactive BACTRIM DS 800-160 MG TAB 1 tab by mouth twice daily 2 BACTRIM DS 800-160 MG TAB 19830105 TRIMETHOPRIM-SULFAMETHOXAZOLE Inac tive ZITHROMAX 250 MG TAB 2 po today, then 1 po q days 2-5 ZITHROMAX 250 MG TAB 5245456 AZITHROMYCIN Inactive BACTRIM DS 800-160 MG TAB [...] mg/dL Encounters Code Encounter Date Provider Facility CPT-06287 Level 4 Est. Patient 09:14:56 CDT Tesfaye pearson MD [facility] CPT-86221 Level 4 Est. Patient 18:40:25 OIL FIELD EQUIPMENT MECHANIC SUPERVISOR Tesfaye pearson MD [facility] CPT-38048 Level 4 Est. Patient 18:13:07 OIL FIELD EQUIPMENT MECHANIC SUPERVISOR Tesfaye pearson MD [facility] CPT-38919 Level 3 Est. Patient 10:46:32 CDT Rj cotto DO [facility] CPT-07375 Level 4 Est. Patient 20:19:25 CDT Tesfaye pearson MD [facility] CPT-06959 Level 3 Est. Patient 09:07:31 CDT Tesfaye pearson MD [facility] CPT-64899 Level 4 Est. Patient 13:12:56 CDT Tesfaye pearson MD [facility] CPT-43042 Level 4 Est. Patient 21:24:55 OIL FIELD EQUIPMENT MECHANIC SUPERVISOR Tesfaye pearson MD [facility] CPT-46463 Level 3 Est. Patient 13:45:04 OIL FIELD EQUIPMENT MECHANIC SUPERVISOR Tesfaye pearson MD [facility] CPT-89611 Level 4 Est. Patient 13:50:45 CDT Tesfaye pearson MD [facility] CPT-15872 Level 3 Est. Patient 10:16:10 CDT Tesfaye pearson MD [facility] CPT-24505 Level 3 Est. Patient 16:36:07 OIL FIELD EQUIPMENT MECHANIC SUPERVISOR Kayla jameson MD [facility] CPT-59320 Level 4 Est. Patient 16:00:14 OIL FIELD EQUIPMENT MECHANIC SUPERVISOR Tesfaye pearson MD [facility] CPT-69135 Level 4 Est. Patient 11:02:24 OIL FIELD EQUIPMENT MECHANIC SUPERVISOR Tesfaye pearson MD [facility] CPT-72359 Level 3 Est. Patient 20:21:43 OIL FIELD EQUIPMENT MECHANIC SUPERVISOR Kayla jameson MD [facility] CPT-59171 Level 3 Est. Patient 13:27:28 OIL FIELD EQUIPMENT MECHANIC SUPERVISOR Kayla jameson MD [facility] CPT-06071 Level 4 Est. Patient 15:57:17 OIL FIELD EQUIPMENT MECHANIC SUPERVISOR Tesfaye pearson MD [facility] CPT-44526 Level 3 New Patient 13:25:47 CDT Tesfaye kidd MD [facility] CPT-81179 Level 3 New Patient 17:22:21 CDT Kayla angel [facility] Procedures Code Procedure Name Date Entry Date Standard Desc ription CPT-G0438 Initial Annual Wellness Exam 11:23:17 CD T CPT-J2930 Solu Medrol 125 mg (Methyl Prednisolone Sodium Succinate) 17:29:12 OIL FIELD EQUIPMENT MECHANIC SUPERVISOR CPT-32833 Abx/Therapy Injection 17:29:11 OIL FIELD EQUIPMENT MECHANIC SUPERVISOR CPT-J2930 Solu Medrol 125 mg (Methyl Prednisolone Sodium Succinate) 12:34:38 OIL FIELD EQUIPMENT MECHANIC SUPERVISOR CPT-J3420 Vitamin B12 1000mcg (Cyanocobalamin) 09:12:55 CDT CPT-J3420 Vitamin B12 1000mcg (Cyanocobalamin) 16:28:06 OIL FIELD EQUIPMENT MECHANIC SUPERVISOR CPT-71480 Venipuncture Draw Fee 08:39:53 CDT CPT-J3420 Vitamin B12 1000mcg (Cyanocobalamin) 08:46:22 CDT CPT-25347 Abx/Therapy Injection 08:46:22 CDT CPT-J3420 Vitamin B12 1000mcg (Cyanocobalamin) 08:41:26 CDT CPT-68799 Abx/Therapy Injection 08:41:26 CDT CPT-J3420 Vitamin B12 1000mcg (Cyanocobalamin) 08:57:15 CDT CPT-10115 Abx/Therapy Injection 08:57:15 CDT CPT-J3420 Vitamin B12 1000mcg (Cyanocobalamin) 10:59:03 CDT CPT-18561 Abx/Therapy Injection 10:59:03 CDT CPT-J3420 Vitamin B12 1000mcg (Cyanocobalamin) 15:05:39 CDT CPT-72237 Abx/Therapy Injection 15:05:39 CDT CPT-J3420 Vitamin B12 1000mcg (Cyanocobalamin) 13:50:45 CDT CPT-J3420 Vitamin B12 1000mcg (Cyanocobalamin) 08:48:55 CDT CPT-35357 Abx/Therapy Injection 08:48:55 CDT CPT-J3420 Vitamin B12 1000mcg (Cyanocobalamin) 09:14:54 CDT CPT-59677 Abx/Therapy Injection 09:14:54 CDT CPT-J3420 Vitamin B12 1000mcg (Cyanocobalamin) 09:06:06 CDT CPT-60825 Abx/Therapy Injection 09:06:06 CDT CPT-J3420 Vitamin B12 1000mcg (Cyanocobalamin) 09:49:14 CDT CPT-19849 Abx/Therapy Injection 09:49:14 CDT CPT-J3420 Vitamin B12 1000mcg (Cyanocobalamin) 09:10:30 OIL FIELD EQUIPMENT MECHANIC SUPERVISOR CPT-90449 Abx/Therapy Injection 09:10:30 OIL FIELD EQUIPMENT MECHANIC SUPERVISOR CPT-J3420 Vitamin B12 1000mcg (Cyanocobalamin) 09:11:07 OIL FIELD EQUIPMENT MECHANIC SUPERVISOR CPT-89004 Abx/Therapy Injection 09:11:07 OIL FIELD EQUIPMENT MECHANIC SUPERVISOR CPT-J3420 Vitamin B12 1000mcg (Cyanocobalamin) 09:57:03 OIL FIELD EQUIPMENT MECHANIC SUPERVISOR CPT-88991 Abx/Therapy Injection 09:57:03 OIL FIELD EQUIPMENT MECHANIC SUPERVISOR CPT-J3420 Vitamin B12 1000mcg (Cyanocobalamin) 09:23:21 OIL FIELD EQUIPMENT MECHANIC SUPERVISOR CPT-71648 Abx/Therapy Injection 09:23:21 OIL FIELD EQUIPMENT MECHANIC SUPERVISOR CPT-48068 Urine Dip (Floor Use Only) 20:21:44 OIL FIELD EQUIPMENT MECHANIC SUPERVISOR 201 02/12/11 CPT-32339 UA Dip Auto (Floor Use Only) 10:04:39 OIL FIELD EQUIPMENT MECHANIC SUPERVISOR 2 CPT-56585 Urine Dip (Floor Use Only) 13:27:28 OIL FIELD EQUIPMENT MECHANIC SUPERVISOR 201 02/12/01 CPT-84112 Bladder Scan 13:27:28 OIL FIELD EQUIPMENT MECHANIC SUPERVISOR CPT-44013 Abd single AP View 14:30:51 OIL FIELD EQUIPMENT MECHANIC SUPERVISOR CPT-OV Office Visit 10:15:43 CDT CPT-15737 Urine Dip (Floor Use Only) 17:22:21 CDT 201 02/09/02 CPT-90336 Bladder Scan 17:22:21 CDT
--- OUTSIDE RECORDS SUMMARY | 2020-05-05 12:44 | XMS REPORT | Clinical Summary ---
Author Author Jeri Hanley Organization [employer] Address Unknown Phone Unavailable Allergies, Adverse Reactions, [...] 1 tablet by mouth daily FLU CONAZOLE 55382974871 No Longer Active Tesfaye Sherman MD Active BACTRIM DS 800-160 MG TAB 1 tab by mouth twice daily 2 TRIMETHOPRIM-SULFAMETHOXAZOLE 25877959690 No Longer Active Tesfaye Sherman MD Active BACTRIM DS 800-160 MG TAB 1 tab by mouth twice daily 2 TRIMETHOPRIM-SULFAMETHOXAZOLE 07738578567 No Longer Active Tesfaye Sherman MD Active DIFLUCAN 150 MG TAB 1 tablet by mouth daily FLU CONAZOLE 19164352739 No Longer Active Tesfaye Sherman MD Active BACTRIM DS 800-160 MG TAB 1 tab by mouth twice daily 2 TRIMETHOPRIM-SULFAMETHOXAZOLE 62990061005 No Longer Active Tesfaye Sherman MD Active ROPINIROLE HCL 0.25 MG ORAL TABS 1 TAB PO Q HS ROPINIROLE HCL 08427199213 Active Tesfaye Sherman MD Active CYMBALTA 30 MG CPEP 1 cap by mouth daily with 60mg DULOXETINE HCL 21953756643 Active Tesfaye Shemran MD Active CEFTIN 250 MG TAB 1 tablet twice daily x 7 days 11/19 CEFUROXIME AXETIL 70083180715 No Longer Active Tesfaye Sherman MD Acti ve DIFLUCAN 100 MG TABS 1 tablet by mouth every other day for 2 dos es FLUCONAZOLE 83487838706 No Longer Active Tesfaye Sherman MD Active DIFLUCAN 100 MG TAB 1 tablet by mouth daily X 3 DAYS 2 FLUCONAZOLE 69072209099 No Longer Active Rj Moss DO Active MIRTAZAPINE 15 MG ORAL TABS 1/2 tab by mouth at bedtime. MIRTAZAPINE 94992285279 No Longer Active Tesfaye Sherman MD Acti ve BACTRIM DS 800-160 MG TAB 1 tab by mouth twice daily 2 TRIMETHOPRIM-SULFAMETHOXAZOLE 40030077698 No Longer Active Tesfaye Sherman MD Active PRAMIPEXOLE DIHYDROCHLORIDE 0.125 MG ORAL TABS take 1 tablet po qhs for restless leg syndrome. PRAMIPEXOLE DIHYDROCHLORIDE 77300559238 No Longer Active Tesfaye Sherman MD Active MAGNESIUM 400 MG ORAL TABS 1 tab po daily MAGNESI UM 94272794284 Active Chelsea Barba APRN Active SUDAFED 24 HOUR 240 MG ORAL [id number] 1 tab po daily PSEUDOEPHEDRINE HCL 19666211179 Active Chelsea Barba APRN A ctive CETIRIZINE HCL 5 MG TABS Take 1 tablet by mouth daily CETIRIZINE HCL 08380709426 No Longer Active Chelsea Barba APRN Acti ve TRIMETHOPRIM 100 MG TABS 1/2 qd TRIMETHOPRIM 25363711887 No Longer Active Chelsea Barba APRN Active BACTRIM DS 800-160 MG TAB 1 tab by mouth twice daily 2 TRIMETHOPRIM-SULFAMETHOXAZOLE 83993759858 No Longer Active Tesfaye Sherman MD Active BACTRIM DS 800-160 MG TAB 1 tab by mouth twice daily X 10 DAYS 2 TRIMETHOPRIM-SULFAMETHOXAZOLE 54570260155 No Longer Active Umer Sherman MD Active AMOXICILLIN 500 MG CAPS 1 cap by mouth three times a day AMOXICILLIN 91649866717 No Longer Active Adriana Arredondo Active MECLIZINE HCL 25 MG TAB one tab po qday prn dizziness MECLIZINE HCL 12165927404 Active Tesfaye Sherman MD Active B-12 1000 MCG ORAL LOZG 1 tab po daily CYANOCOBAL STANTON 21693968641 Active Tesfaye Sherman MD Active VITAMIN D3 2000 UNIT TABS 1 daily, for vitamin D deficiency 2014 CHOLECALCIFEROL 76017299140 No Longer Active Tesfaye Sherman MD Active TIZANIDINE HCL 2 MG TABS take 1-2 tablet by mouth at bedtime at 9pm PRN TIZANIDINE HCL 80076163432 Active Tesfaye Higgins D Active ZITHROMAX 250 MG TAB 2 po today, then 1 po q days 2-5 AZITHROMYCIN 64255524625 No Longer Active Tesfaye Sherman MD Acti ve BACTRIM DS 800-160 MG TAB 1 tab by mouth twice daily 2 TRIMETHOPRIM-SULFAMETHOXAZOLE 36275257627 No Longer Active Tesfaye Sherman MD Active PRELIEF 340 (65-50) MG (CA-P) ORAL TABS CALCIUM GLYCEROPHOSPHATE 36568573904 Active Tesfaye Sherman MD Active [facility] NIACIN FLUSH FREE 400-100 MG CAPS 1 daily NIACIN-INOSITOL 83958732298 Active Kayla Cooper MD Active DIFLUCAN 150 MG TABS 1 qd FLUCONAZOLE 07100 603047 No Longer Active Kayla Cooper MD Active FLUTICASONE PROPIONATE 50 MCG/ACT SUSP 1 spray each nostril twice daily FLUTICASONE PROPIONATE 62246539439 Active Tesfaye armenta MD Active LOVASTATIN 20 MG TABS Take 1 tablet by mouth daily LOVASTATIN 67874758585 No Longer Active Tesfaye Sherman MD Active MELOXICAM 7.5 MG TABS 1 tablet by mouth daily M ELOXICAM 72115856285 No Longer Active Tesfaye Sherman MD Active GABAPENTIN 300 MG CAPS Take two tablets by mouth every evening GABAPENTIN 94642479358 No Longer Active Edith Burch MD Active OXYCODONE-ACETAMINOPHEN 5-325 MG TABS Take one tablet by mouth every 6 hours as needed. Max 12 tabs/day as needed OXYCODONE-ACETAMINOP HEN 41659005076 Active Tesfaye Sherman MD Active CYMBALTA 60 MG CPEP Take 1 tablet by mouth daily D ULOXETINE HCL 54716032426 Active Kayla Cooper MD Active CLONAZEPAM 0.5 MG TABS Take one tablet in the morning and 1.5 table t at 7pm CLONAZEPAM 50329027512 Active Kayla Cooper MD Active BACLOFEN 10 MG TABS Take one tablet by mouth three times a day BACLOFEN 08168481224 Active J John Cooper MD Active GABAPENTIN 300 MG CAPS Take two tablets by mouth every evening GABAPENTIN 300 MG CAPS 746375 GABAPENTIN Inactive MELOXICAM 7.5 MG TABS 1 tablet by mouth daily MELOXICAM 7.5 MG TABS 770672 MELOXICAM Inactive LOVASTATIN 20 MG TABS Take 1 tablet by mouth daily 201 02/12/20 LOVASTATIN 20 MG TABS 575028 LOVASTATIN Inactive DIFLUCAN 150 MG TABS 1 qd DIFLUCAN 150 MG T ABS 180872 FLUCONAZOLE Inactive VITAMIN D3 2000 UNIT TABS 1 daily, for vitamin D deficiency 2014 VITAMIN D3 2000 UNIT TABS CHOLECALCIFEROL Inacti ve AMOXICILLIN 500 MG CAPS 1 cap by mouth three times a day AMOXICILLIN 500 MG CAPS 902490 AMOXICILLIN Inactive BACTRIM DS 800-160 MG TAB 1 tab by mouth twice daily X 10 DAYS 2 BACTRIM DS 800-160 MG TAB 495478 TRIMETHOPRIM-SULFAMETH OXAZOLE Inactive TRIMETHOPRIM 100 MG TABS 1/2 qd TRIMETHOPRI M 100 MG TABS 737029 TRIMETHOPRIM Inactive CETIRIZINE HCL 5 MG TABS Take 1 tablet by mouth daily CETIRIZINE HCL 5 MG TABS 6401218 CETIRIZINE HCL Inactive PRAMIPEXOLE DIHYDROCHLORIDE 0.125 MG ORAL TABS take 1 tablet po qhs for restless leg syndrome. PRAMIPEXOLE DIHYDROC HLORIDE 0.125 MG ORAL TABS 043267 PRAMIPEXOLE DIHYDROCHLORIDE Inactive MIRTAZAPINE 15 MG ORAL TABS 1/2 tab by mouth at bedtime. MIRTAZAPINE 15 MG ORAL TABS 954607 MIRTAZAPINE Inactive DIFLUCAN 100 MG TAB 1 tablet by mouth daily X 3 DAYS 2 DIFLUCAN 100 MG TAB 335916 FLUCONAZOLE Inactive DIFLUCAN 100 MG TABS 1 tablet by mouth every other day for 2 dos es DIFLUCAN 100 MG TABS 19760711 FLUCONAZOLE Inactive CEFTIN 250 MG TAB 1 tablet twice daily x 7 days 11/19 CEFTIN 250 MG TAB 417364 CEFUROXIME AXETIL Inactive BACTRIM DS 800-160 MG TAB 1 tab by mouth twice daily 2 BACTRIM DS 800-160 MG TAB 136612 TRIMETHOPRIM-SULFAMETHOXAZOLE Inac tive ZITHROMAX 250 MG TAB 2 po today, then 1 po q days 2-5 ZITHROMAX 250 MG TAB 8083038 AZITHROMYCIN Inactive BACTRIM DS 800-160 MG TAB 1 tab by mouth twice daily 2 BACTRIM DS 800-160 MG TAB 19830105 TRIMETHOPRIM-SULFAMETHOXAZOLE Inac tive BACTRIM DS 800-160 MG TAB 1 tab by mouth twice daily 2 BACTRIM DS 800-160 MG TAB 393918 TRIMETHOPRIM-SULFAMETHOXAZOLE Inac tive BACTRIM DS 800-160 MG TAB 1 tab by mouth twice daily 2 BACTRIM DS 800-160 MG TAB 19830105 TRIMETHOPRIM-SULFAMETHOXAZOLE Inac tive DIFLUCAN 150 MG TAB 1 tablet by mouth daily DIFLUCAN 150 MG TAB 19760712 FLUCONAZOLE Inactive BACTRIM DS 800-160 MG TAB 1 tab by mouth twice daily 2 BACTRIM DS 800-160 MG TAB 700686 TRIMETHOPRIM-SULFAMETHOXAZOLE Inac tive BACTRIM DS 800-160 MG [...] mg/dL Encounters Code Encounter Date Provider Facility CPT-23780 Level 4 Est. Patient 09:14:56 CDT Tesfaye pearson MD [facility] CPT-71122 Level 4 Est. Patient 18:40:25 MARKET DEVELOPER Tesfaye pearson MD [facility] CPT-98244 Level 4 Est. Patient 18:13:07 MARKET DEVELOPER Tesfaye pearson MD [facility] [place]-41633 Level 3 Est. Patient 10:46:32 CDT Rj cotto DO [facility] CPT-52307 Level 4 Est. Patient 20:19:25 CDT Tesfaye pearson MD [facility] [place]-94826 Level 3 Est. Patient 09:07:31 CDT Tesfaye pearson MD [facility]-55389 Level 4 Est. Patient 13:12:56 CDT Tesfaye pearson MD [facility] [place]-08493 Level 4 Est. Patient 21:24:55 MARKET DEVELOPER Tesfaye pearson MD [facility]-91960 Level 3 Est. Patient 13:45:04 MARKET DEVELOPER Tesfaye pearson MD [facility] CPT-89015 Level 4 Est. Patient 13:50:45 CDT Tesfaye pearson MD [facility] CPT-54270 Level 3 Est. Patient 10:16:10 CDT Tesfaye pearson MD [facility] CPT-72160 Level 3 Est. Patient 16:36:07 MARKET DEVELOPER Kayla jameson MD [facility]-57598 Level 4 Est. Patient 16:00:14 MARKET DEVELOPER Tesfaye pearson MD [facility]-49293 Level 4 Est. Patient 11:02:24 MARKET DEVELOPER Tesfaye pearson MD [facility]-99926 Level 3 Est. Patient 20:21:43 MARKET DEVELOPER Kayla jameson MD [facility]-95263 Level 3 Est. Patient 13:27:28 MARKET DEVELOPER Kayla jameson MD [facility]-22571 Level 4 Est. Patient 15:57:17 MARKET DEVELOPER Tesfaye pearson MD [facility] CPT-20716 Level 3 New Patient 13:25:47 CDT Tesfaye kidd MD [facility] CPT-76189 Level 3 New Patient 17:22:21 CDT Kayla angel MD [facility] Procedures Code Procedure Name Date Entry Date Standard Desc ription CPT-G0439 Subsequent Annual Wellness Exam 13:55:04 CDT CPT-G0438 Initial Annual Wellness Exam 11:23:17 CD T CPT-J2930 Solu Medrol 125 mg (Methyl Prednisolone Sodium Succinate) 17:29:12 MARKET DEVELOPER CPT-95188 Abx/Therapy Injection 17:29:11 MARKET DEVELOPER CPT-J2930 Solu Medrol 125 mg (Methyl Prednisolone Sodium Succinate) 12:34:38 MARKET DEVELOPER CPT-J3420 Vitamin B12 1000mcg (Cyanocobalamin) 09:12:55 CDT CPT-J3420 Vitamin B12 1000mcg (Cyanocobalamin) 16:28:06 MARKET DEVELOPER CPT-58792 Venipuncture Draw Fee 08:39:53 CDT CPT-J3420 Vitamin B12 1000mcg (Cyanocobalamin) 08:46:22 CDT CPT-08003 Abx/Therapy Injection 08:46:22 CDT CPT-J3420 Vitamin B12 1000mcg (Cyanocobalamin) 08:41:26 CDT CPT-23770 Abx/Therapy Injection 08:41:26 CDT CPT-J3420 Vitamin B12 1000mcg (Cyanocobalamin) 08:57:15 CDT CPT-01188 Abx/Therapy Injection 08:57:15 CDT CPT-J3420 Vitamin B12 1000mcg (Cyanocobalamin) 10:59:03 CDT CPT-24503 Abx/Therapy Injection 10:59:03 CDT CPT-J3420 Vitamin B12 1000mcg (Cyanocobalamin) 15:05:39 CDT CPT-79209 Abx/Therapy Injection 15:05:39 CDT CPT-J3420 Vitamin B12 1000mcg (Cyanocobalamin) 13:50:45 CDT CPT-J3420 Vitamin B12 1000mcg (Cyanocobalamin) 08:48:55 CDT CPT-87796 Abx/Therapy Injection 08:48:55 CDT CPT-J3420 Vitamin B12 1000mcg (Cyanocobalamin) 09:14:54 CDT CPT-99342 Abx/Therapy Injection 09:14:54 CDT CPT-J3420 Vitamin B12 1000mcg (Cyanocobalamin) 09:06:06 CDT CPT-25816 Abx/Therapy Injection 09:06:06 CDT CPT-J3420 Vitamin B12 1000mcg (Cyanocobalamin) 09:49:14 CDT CPT-64990 Abx/Therapy Injection 09:49:14 CDT CPT-J3420 Vitamin B12 1000mcg (Cyanocobalamin) 09:10:30 MARKET DEVELOPER CPT-74143 Abx/Therapy Injection 09:10:30 MARKET DEVELOPER CPT-J3420 Vitamin B12 1000mcg (Cyanocobalamin) 09:11:07 MARKET DEVELOPER CPT-37066 Abx/Therapy Injection 09:11:07 MARKET DEVELOPER CPT-J3420 Vitamin B12 1000mcg (Cyanocobalamin) 09:57:03 MARKET DEVELOPER CPT-88287 Abx/Therapy Injection 09:57:03 MARKET DEVELOPER CPT-J3420 Vitamin B12 1000mcg (Cyanocobalamin) 09:23:21 MARKET DEVELOPER CPT-55148 Abx/Therapy Injection 09:23:21 MARKET DEVELOPER CPT-83301 Urine Dip (Floor Use Only) 20:21:44 MARKET DEVELOPER 201 02/12/11 CPT-34905 UA Dip Auto (Floor Use Only) 10:04:39 MARKET DEVELOPER 2 CPT-83660 Urine Dip (Floor Use Only) 13:27:28 MARKET DEVELOPER 201 02/12/01 CPT-59568 Bladder Scan 13:27:28 MARKET DEVELOPER CPT-86411 Abd single AP View 14:30:51 MARKET DEVELOPER CPT-OV Office Visit 10:15:43 CDT CPT-76675 Urine Dip (Floor Use Only) 17:22:21 CDT 201 02/09/02 CPT-40447 Bladder Scan 17:22:21 CDT
--- OUTSIDE RECORDS SUMMARY | 2020-05-05 12:45 | XMS REPORT | Clinical Summary ---
Author Author Jeri Hanley Organization [facility]. Address Unknown Phone Unavailable Allergies, Adverse Reactions, [...] ORAL CAPS 1 tablet daily LACTOBACI LLUS 02480545978 Active Edith Burch MD Active CYMBALTA 60 MG CPEP Take 1 tablet by mouth daily 1 DULOXETINE HCL 89416138463 No Longer Active Edith Burch MD Active CYMBALTA 30 MG CPEP 1 cap by mouth daily with 60mg 201 05/09/11 DULOXETINE HCL 71555692714 No Longer Active Edith Burch MD Activ e FISH OIL 1000 MG CPDR 1 pill by mouth daily for cholesterol 04/18 OMEGA- 3 FATTY ACIDS 59734010751 Active Rosa Jaffe LPN Acti ve RED YEAST RICE 600 MG CAPS 1 pill by mouth daily RED YEAST RICE EXTRACT 67772616810 Active Rosa Jaffe LPN Activ e VENLAFAXINE HCL 37.5 MG TABS 1/4 tab po titrating up to full dose 2 VENLAFAXINE HCL 43816543897 Active Chelsea Barba APRN Activ e DIFLUCAN 100 MG TAB 1 tablet by mouth daily FLU CONAZOLE 87383202064 No Longer Active Tesfaye Sherman MD Active BACTRIM DS 800-160 MG TAB 1 tab by mouth twice daily 2 TRIMETHOPRIM-SULFAMETHOXAZOLE 31727038124 No Longer Active Tesfaye Sherman MD Active BACTRIM DS 800-160 MG TAB 1 tab by mouth twice daily 2 TRIMETHOPRIM-SULFAMETHOXAZOLE 31850550775 No Longer Active Tesfaye Sherman MD Active DIFLUCAN 150 MG TAB 1 tablet by mouth daily FLU CONAZOLE 16748313752 No Longer Active Tesfaye Sherman MD Active BACTRIM DS 800-160 MG TAB 1 tab by mouth twice daily 2 TRIMETHOPRIM-SULFAMETHOXAZOLE 81773340881 No Longer Active Tesfaye Sherman MD Active ROPINIROLE HCL 0.25 MG ORAL TABS 1 TAB PO Q HS ROPINIROLE HCL 96239738251 Active Tesfaye Sherman MD Active CEFTIN 250 MG TAB 1 tablet twice daily x 7 days 11/19 CEFUROXIME AXETIL 19453006380 No Longer Active Tesfaye Sherman MD Acti ve DIFLUCAN 100 MG TABS 1 tablet by mouth every other day for 2 dos es FLUCONAZOLE 72042734662 No Longer Active Tesfaye Sherman MD Active DIFLUCAN 100 MG TAB 1 tablet by mouth daily X 3 DAYS 2 FLUCONAZOLE 28333024842 No Longer Active Rj Moss DO Active MIRTAZAPINE 15 MG ORAL TABS 1/2 tab by mouth at bedtime. MIRTAZAPINE 79746255517 No Longer Active Tesfaye Sherman MD Acti ve BACTRIM DS 800-160 MG TAB 1 tab by mouth twice daily 2 TRIMETHOPRIM-SULFAMETHOXAZOLE 50743148648 No Longer Active Tesfaye Sherman MD Active PRAMIPEXOLE DIHYDROCHLORIDE 0.125 MG ORAL TABS take 1 tablet po qhs for restless leg syndrome. PRAMIPEXOLE DIHYDROCHLORIDE 00862413156 No Longer Active Tesfaye Sherman MD Active MAGNESIUM 400 MG ORAL TABS 1 tab po daily MAGNESI UM 57885579299 Active Chelsea Barba APRN Active SUDAFED 24 HOUR 240 MG ORAL [id number] 1 tab po daily PSEUDOEPHEDRINE HCL 09491401142 Active Chelsea Barba APRN A ctive CETIRIZINE HCL 5 MG TABS Take 1 tablet by mouth daily CETIRIZINE HCL 52594252341 No Longer Active Chelsea Barba APRN Acti ve TRIMETHOPRIM 100 MG TABS 1/2 qd TRIMETHOPRIM 09172220827 No Longer Active Chelsea Barba SUPERVISING LIBRARIAN Active BACTRIM DS 800-160 MG TAB 1 tab by mouth twice daily 2 TRIMETHOPRIM-SULFAMETHOXAZOLE 02618931405 No Longer Active Tesfaye Sherman MD Active BACTRIM DS 800-160 MG TAB 1 tab by mouth twice daily X 10 DAYS 2 TRIMETHOPRIM-SULFAMETHOXAZOLE 05633209519 No Longer Active Umer Sherman MD Active AMOXICILLIN 500 MG CAPS 1 cap by mouth three times a day AMOXICILLIN 37476549943 No Longer Active Adriana Arredondo Active MECLIZINE HCL 25 MG TAB one tab po qday prn dizziness MECLIZINE HCL 76793479353 Active Tesfaye Sherman MD Active B-12 1000 MCG ORAL LOZG 1 tab po daily CYANOCOBAL STANTON 23476099019 Active Tesfaye Sherman MD Active VITAMIN D3 2000 UNIT TABS 1 daily, for vitamin D deficiency 2014 CHOLECALCIFEROL 06157155721 No Longer Active Tesfaye Sherman MD Active TIZANIDINE HCL 2 MG TABS take 1-2 tablet by mouth at bedtime at 9pm PRN TIZANIDINE HCL 83360044569 Active Tesfaye Owusu Active ZITHROMAX 250 MG TAB 2 po today, then 1 po q days 2-5 AZITHROMYCIN 67846883215 No Longer Active Tesfaye Sherman MD Acti ve BACTRIM DS 800-160 MG TAB 1 tab by mouth twice daily 2 TRIMETHOPRIM-SULFAMETHOXAZOLE 80229326563 No Longer Active Tesfaye Sherman MD Active PRELIEF 340 (65-50) MG (CA-P) ORAL TABS CALCIUM GLYCEROPHOSPHATE 52763466256 Active Tesfaye Sherman MD Active [facility] NIACIN FLUSH FREE 400-100 MG CAPS 1 daily NIACIN-INOSITOL 74413325291 Active Kayla Cooper MD Active DIFLUCAN 150 MG TABS 1 qd FLUCONAZOLE 98340 994270 No Longer Active Kayla Cooper MD Active FLUTICASONE PROPIONATE 50 MCG/ACT SUSP 1 spray each nostril twice daily FLUTICASONE PROPIONATE 89835406554 Active Tesfaye armenta MD Active LOVASTATIN 20 MG TABS Take 1 tablet by mouth daily LOVASTATIN 78804632278 No Longer Active Tesfaye Sherman MD Active MELOXICAM 7.5 MG TABS 1 tablet by mouth daily M ELOXICAM 06923581877 No Longer Active Tesfaye Sherman MD Active GABAPENTIN 300 MG CAPS Take two tablets by mouth every evening GABAPENTIN 62881878095 No Longer Active Edith Burch MD Active OXYCODONE-ACETAMINOPHEN 5-325 MG TABS Take one tablet by mouth every 6 hours as needed. Max 12 tabs/day as needed OXYCODONE-ACETAMINOP HEN 05546523451 Active Tesfaye Sherman MD Active CLONAZEPAM 0.5 MG TABS Take one tablet in the morning and 1.5 table t at 7pm CLONAZEPAM 85262523088 Active Kayla Cooper MD Active BACLOFEN 10 MG TABS Take one tablet by mouth three times a day BACLOFEN 23237046586 Active Kayla Cooper MD Active GABAPENTIN 300 MG CAPS Take two tablets by mouth every evening GABAPENTIN 300 MG CAPS 024006 GABAPENTIN Inactive MELOXICAM 7.5 MG TABS 1 tablet by mouth daily MELOXICAM 7.5 MG TABS 547588 MELOXICAM Inactive LOVASTATIN 20 MG TABS Take 1 tablet by mouth daily 201 02/12/20 LOVASTATIN 20 MG TABS 944612 LOVASTATIN Inactive DIFLUCAN 150 MG TABS 1 qd DIFLUCAN 150 MG T ABS 762694 FLUCONAZOLE Inactive VITAMIN D3 2000 UNIT TABS 1 daily, for vitamin D deficiency 2014 VITAMIN D3 2000 UNIT TABS CHOLECALCIFEROL Inacti ve AMOXICILLIN 500 MG CAPS 1 cap by mouth three times a day AMOXICILLIN 500 MG CAPS 407778 AMOXICILLIN Inactive BACTRIM DS 800-160 MG TAB 1 tab by mouth twice daily X 10 DAYS 2 BACTRIM DS 800-160 MG TAB 19830105 TRIMETHOPRIM-SULFAMETH OXAZOLE Inactive TRIMETHOPRIM 100 MG TABS 1/2 qd TRIMETHOPRI M 100 MG TABS 19830102 TRIMETHOPRIM Inactive CETIRIZINE HCL 5 MG TABS Take 1 tablet by mouth daily CETIRIZINE HCL 5 MG TABS 8228755 CETIRIZINE HCL Inactive PRAMIPEXOLE DIHYDROCHLORIDE 0.125 MG ORAL TABS take 1 tablet po qhs for restless leg syndrome. PRAMIPEXOLE DIHYDROC HLORIDE 0.125 MG ORAL TABS 056843 PRAMIPEXOLE DIHYDROCHLORIDE Inactive MIRTAZAPINE 15 MG ORAL TABS 1/2 tab by mouth at bedtime. MIRTAZAPINE 15 MG ORAL TABS 642090 MIRTAZAPINE Inactive DIFLUCAN 100 MG TAB 1 tablet by mouth daily X 3 DAYS 2 DIFLUCAN 100 MG TAB 026788 FLUCONAZOLE Inactive DIFLUCAN 100 MG TABS 1 tablet by mouth every other day for 2 dos es DIFLUCAN 100 MG TABS 678987 FLUCONAZOLE Inactive CEFTIN 250 MG TAB 1 tablet twice daily x 7 days 11/19 CEFTIN 250 MG TAB 092652 CEFUROXIME AXETIL Inactive CYMBALTA 30 MG CPEP 1 cap by mouth daily with 60mg 201 05/09/11 CYMBALTA 30 MG CPEP 463125 DULOXETINE HCL Inactive CYMBALTA 60 MG CPEP Take 1 tablet by mouth daily 05/13 CYMBALTA 60 MG CPEP 744961 DULOXETINE HCL Inactive BACTRIM DS 800-160 MG TAB 1 tab by mouth twice daily 2 BACTRIM DS 800-160 MG TAB 993992 TRIMETHOPRIM-SULFAMETHOXAZOLE Inac tive ZITHROMAX 250 MG TAB 2 po today, then 1 po q days 2-5 ZITHROMAX 250 MG TAB 8616880 AZITHROMYCIN Inactive BACTRIM DS 800-160 MG TAB [...] by mouth daily DIFLUCAN 100 MG TAB 401420 FLUCONAZOLE Inactive Advance Directives Directive Description Start [...] ... - Chemistry sodium, serum 144 mmol/L 109-622 2755/06/14 carbon dioxide, venous blood 29.4 mmol/L 21.0-32 .0 potassium, serum 4.4 mmol/L 3.5-5.2 chloride, serum 108 mmol/L 98-107 blood glucose 100 mg/dL 65-110 urea nitrogen, blood 9 mg/dL 7-18 creatinine, serum 0.67 mg/dL 0.55-1.30 alanine aminotransferase (SGPT), serum 24 U/L 12-78 aspartate aminotransferase (SGOT), serum 15 U/L 15-37 calcium, serum 9.3 mg/dL 8.5-10.1 bilirubin, serum, total 0.50 mg/dL 0.00-1.00 cholesterol, serum 268 mg/dL 135-013 6259/06/14 triglyceride, serum, fasting 126 mg/dL 30-200 HDL [...] mg/dL Encounters Code Encounter Date Provider Facility CPT-14099 Level 4 Est. Patient 13:24:25 CDT Stephanie MERCADO [facility] CPT-53043 Level 4 Est. Patient 09:14:56 CDT Tesfaye pearson MD [facility] CPT-03003 Level 4 Est. Patient 18:40:25 CLAMP OPERATOR Tesfaye pearson MD [facility] CPT-48001 Level 4 Est. Patient 18:13:07 CLAMP OPERATOR Tesfaye pearson MD [facility]-81630 Level 3 Est. Patient 10:46:32 CDT Rj cotto DO [facility]-02598 Level 4 Est. Patient 20:19:25 CDT Tesfaye pearson MD [facility]-44216 Level 3 Est. Patient 09:07:31 CDT Tesfaye pearson MD [facility]-18858 Level 4 Est. Patient 13:12:56 CDT Tesfaye pearson MD [facility]-39001 Level 4 Est. Patient 21:24:55 CLAMP OPERATOR Tesfaye pearson MD [facility]-41661 Level 3 Est. Patient 13:45:04 CLAMP OPERATOR Tesfaye pearson MD [facility] CPT-60490 Level 4 Est. Patient 13:50:45 CDT Tesfaye pearson MD [facility] CPT-25668 Level 3 Est. Patient 10:16:10 CDT Tesfaye pearson MD [facility] CPT-51901 Level 3 Est. Patient 16:36:07 CLAMP OPERATOR Kayla jameson MD [facility]-30135 Level 4 Est. Patient 16:00:14 CLAMP OPERATOR Tesfaye pearson MD [facility]-89887 Level 4 Est. Patient 11:02:24 CLAMP OPERATOR Tesfaye pearson MD [facility]-68458 Level 3 Est. Patient 20:21:43 CLAMP OPERATOR Kayla jameson MD [facility]-35786 Level 3 Est. Patient 13:27:28 CLAMP OPERATOR Kayla jameson MD [facility]-05975 Level 4 Est. Patient 15:57:17 CLAMP OPERATOR Tesfaye pearson MD [facility] CPT-33938 Level 3 New Patient 13:25:47 CDT Tesfaye kidd MD [facility] CPT-68646 Level 3 New Patient 17:22:21 CDT Kayla angel MD [facility] Procedures Code Procedure Name Date Entry Date Standard Desc ription CPT-68164 Bone Density - XRAY USE ONLY 10:05:16 CDT 2 CPT-23588 Prv Med New Pt 40-64 yrs 18:19:25 CDT 2016 CPT-62515 Foot, right, comp min 3V - XRAY USE ONLY 10:38:34 CDT CPT-G0439 Subsequent Annual Wellness Exam 13:55:04 CDT CPT-G0438 Initial Annual Wellness Exam 11:23:17 CD T CPT-J2930 Solu Medrol 125 mg (Methyl Prednisolone Sodium Succinate) 17:29:12 CLAMP OPERATOR CPT-82570 Abx/Therapy Injection 17:29:11 CLAMP OPERATOR CPT-J2930 Solu Medrol 125 mg (Methyl Prednisolone Sodium Succinate) 12:34:38 CLAMP OPERATOR CPT-J3420 Vitamin B12 1000mcg (Cyanocobalamin) 09:12:55 CDT CPT-J3420 Vitamin B12 1000mcg (Cyanocobalamin) 16:28:06 CLAMP OPERATOR CPT-16049 Venipuncture Draw Fee 08:39:53 CDT CPT-J3420 Vitamin B12 1000mcg (Cyanocobalamin) 08:46:22 CDT CPT-27986 Abx/Therapy Injection 08:46:22 CDT CPT-J3420 Vitamin B12 1000mcg (Cyanocobalamin) 08:41:26 CDT CPT-58532 Abx/Therapy Injection 08:41:26 CDT CPT-J3420 Vitamin B12 1000mcg (Cyanocobalamin) 08:57:15 CDT CPT-76044 Abx/Therapy Injection 08:57:15 CDT CPT-J3420 Vitamin B12 1000mcg (Cyanocobalamin) 10:59:03 CDT CPT-46070 Abx/Therapy Injection 10:59:03 CDT CPT-J3420 Vitamin B12 1000mcg (Cyanocobalamin) 15:05:39 CDT CPT-45244 Abx/Therapy Injection 15:05:39 CDT CPT-J3420 Vitamin B12 1000mcg (Cyanocobalamin) 13:50:45 CDT CPT-J3420 Vitamin B12 1000mcg (Cyanocobalamin) 08:48:55 CDT CPT-14038 Abx/Therapy Injection 08:48:55 CDT CPT-J3420 Vitamin B12 1000mcg (Cyanocobalamin) 09:14:54 CDT CPT-25915 Abx/Therapy Injection 09:14:54 CDT CPT-J3420 Vitamin B12 1000mcg (Cyanocobalamin) 09:06:06 CDT CPT-61568 Abx/Therapy Injection 09:06:06 CDT CPT-J3420 Vitamin B12 1000mcg (Cyanocobalamin) 09:49:14 CDT CPT-16646 Abx/Therapy Injection 09:49:14 CDT CPT-J3420 Vitamin B12 1000mcg (Cyanocobalamin) 09:10:30 CLAMP OPERATOR CPT-79859 Abx/Therapy Injection 09:10:30 CLAMP OPERATOR CPT-J3420 Vitamin B12 1000mcg (Cyanocobalamin) 09:11:07 CLAMP OPERATOR CPT-25968 Abx/Therapy Injection 09:11:07 CLAMP OPERATOR CPT-J3420 Vitamin B12 1000mcg (Cyanocobalamin) 09:57:03 CLAMP OPERATOR CPT-77436 Abx/Therapy Injection 09:57:03 CLAMP OPERATOR CPT-J3420 Vitamin B12 1000mcg (Cyanocobalamin) 09:23:21 CLAMP OPERATOR CPT-26372 Abx/Therapy Injection 09:23:21 CLAMP OPERATOR CPT-29904 Urine Dip (Floor Use Only) 20:21:44 CLAMP OPERATOR 201 02/12/11 CPT-10145 UA Dip Auto (Floor Use Only) 10:04:39 CLAMP OPERATOR 2 CPT-95466 Urine Dip (Floor Use Only) 13:27:28 CLAMP OPERATOR 201 02/12/01 CPT-66034 Bladder Scan 13:27:28 CLAMP OPERATOR CPT-23962 Abd single AP View 14:30:51 CLAMP OPERATOR CPT-OV Office Visit 10:15:43 CDT CPT-36282 Urine Dip (Floor Use Only) 17:22:21 CDT 201 02/09/02 CPT-96825 Bladder Scan 17:22:21 CDT
--- OUTSIDE RECORDS SUMMARY | 2020-05-05 12:45 | XMS REPORT | Clinical Summary ---
Author Author Talon, Jeri Wood Organization [facility] Address Unknown Phone Unavailable Allergies, Adverse Reactions, Alerts Allergy Name Reaction Description Start Date Severity Status Pr ovider XANAX Critical Active Kayla Shaw on SAVELLFer [...] Dyspareunia 625.0 Active Edith Burch MD Dyspareunia Medication List Medication Instructions Start Date Stop Date Generic Name [facility] Status Provider Patient Instruction GABAPENTIN 300 MG CAPS Take two tablets by mouth every evening GABAPENTIN 65858634084 No Longer Active Edith Burch MD Active DIFLUCAN 150 MG TABS 1 qd FLUCONAZOLE 92307869581 Active Kayla Cooper MD Active TRIMETHOPRIM 100 MG TABS 1/2 qd TRIMETHOPRIM 9406565 3001 Active Kayla Cooper MD Active TIZANIDINE HCL 2 MG TABS take one tablet by mouth every day at bedtime at 9pm TIZANIDINE HCL 48174041332 Active Kayla Cooper MD Active OXYCODONE-ACETAMINOPHEN 5-325 MG TABS Take one tablet by mouth every 6 hours as needed. Max 12 tabs/day as needed OXYCODONE-ACETAMINOP HEN 11413302719 Active Kayla Cooper MD Active LOVASTATIN 20 MG TABS Take 1 tablet by mouth daily LOVASTATIN 46790062461 Active Kayla Cooper MD Active CYMBALTA 60 MG CPEP Take 1 tablet by mouth daily D ULOXETINE HCL 50724016418 Active Kayla Cooper MD Active CLONAZEPAM 0.5 MG TABS Take one tablet in the morning and 1.5 table t at 7pm CLONAZEPAM 03416662978 Active Kayla Cooper MD Active CETIRIZINE HCL 5 MG TABS Take 1 tablet by mouth daily CETIRIZINE HCL 76228177151 Active Kayla Cooper MD Active BACLOFEN 10 MG TABS Take one tablet by mouth three times a day BACLOFEN 31541032686 Active Kayla Cooper MD Active GABAPENTIN 300 MG CAPS Take two tablets by mouth every evening GABAPENTIN 300 MG CAPS 046464 GABAPENTIN Inactive Advance Directives Directive Description Start Date PERMISSION TO SHARE PERMISSION TO SHARE Vital Signs Date Name Value Unit Range Description blood pressure, diastolic 84 mm[Hg] BP lyon blood pressure, systolic 148 mm[Hg] BP sys height E&M 62 [in_us] Bdy height pulse rate E&M 72 /min Heart rate temperature E&M 98.2 [degF] Body temp erature weight E&M 110 [lb_av] Weight Measure d Diagnostic Results Date Name Value Unit Range Description Lab Report: UADIP W/MICRO, AUTO - Chemis try protein, total urine random Negative mg/dL Negative RBC, urine, dipstick Trace Negative Lab Report: UADIP W/MICRO, AUTO - [...] pH, urine, semiquantitative 6.5 5.0-8.5 Office Visit: Frequent UTI - Chemistry RBC, urine, dipstick negative protein, total urine random negative mg/dL Office Visit: Frequent UTI - Urinalysis ketones, urine, by test strip negative bilirubin, urine negative glucose, urine, semiquantitative negative pH, urine, semiquantitative 5 specific gravity, urine 1.000 urinalysis, routine Clean Catch urine color yellow appearance, urine clear leukocyte esterase, urine, by dipstick negative nitrite, urine, semiquantitative negative urobilinogen, urine, semiquantitative (dipstick) 0.2 protein, urine, semiquantitative (dipstick) negative Encounters Code Encounter Date Provider Facility CPT-37721 Level 3 New Patient 17:22:21 CDT Kayla angel MD [facility] Procedures Code Procedure Name Date Entry Date Standard Desc ription CPT-OV Office Visit 10:15:43 CDT CPT-30367 Urine Dip (Floor Use Only) 17:22:21 CDT 201 02/09/02 CPT-74466 Bladder Scan 17:22:21 CDT
--- OUTSIDE RECORDS SUMMARY | 2020-05-05 12:45 | XMS REPORT | Clinical Summary ---
Author Author Talon, Jeri Wood Organization [facility] Address Unknown Phone Unavailable Allergies, Adverse [...] daily, for vitamin D deficiency 2014 CHOLECALCIFEROL 95050258266 No Longer Active Tesfaye Sherman MD Active TIZANIDINE HCL 2 MG TABS take 1-2 tablet by mouth at bedtime at 9pm PRN TIZANIDINE HCL 64746127650 Active Tesfaye Owusu Active ZITHROMAX 250 MG TAB 2 po today, then 1 po q days 2-5 AZITHROMYCIN 79633675839 No Longer Active Tesfaye Sherman MD Acti ve BACTRIM DS 800-160 MG TAB 1 tab by mouth twice daily 2 TRIMETHOPRIM-SULFAMETHOXAZOLE 88695717149 No Longer Active Tesfaye Sherman MD Active PRELIEF 340 (65-50) MG (CA-P) ORAL TABS CALCIUM GLYCEROPHOSPHATE 66307907958 Active Tesfaye Sherman MD Active [facility] NIACIN FLUSH FREE 400-100 MG CAPS 1 daily NIACIN-INOSITOL 93278379808 Active Kayla Cooper MD Active DIFLUCAN 150 MG TABS 1 qd FLUCONAZOLE 96771 677193 No Longer Active Kayla Cooper MD Active FLUTICASONE PROPIONATE 50 MCG/ACT SUSP 1 spray each nostril twice daily FLUTICASONE PROPIONATE 59011764063 Active Tesfaye armenta MD Active LOVASTATIN 20 MG TABS Take 1 tablet by mouth daily LOVASTATIN 25322510146 No Longer Active Tesfaye Sherman MD Active MELOXICAM 7.5 MG TABS 1 tablet by mouth daily M ELOXICAM 74069630386 No Longer Active Tesfaye Sherman MD Active GABAPENTIN 300 MG CAPS Take two tablets by mouth every evening GABAPENTIN 53282620775 No Longer Active Edith Burch MD Active TRIMETHOPRIM 100 MG TABS 1/2 qd TRIMETHOPRIM 1228847 3001 Active Kayla Cooper MD Active OXYCODONE-ACETAMINOPHEN 5-325 MG TABS Take one tablet by mouth every 6 hours as needed. Max 12 tabs/day as needed OXYCODONE-ACETAMINOP HEN 29990432424 Active Tesfaye Sherman MD Active CYMBALTA 60 MG CPEP Take 1 tablet by mouth daily D ULOXETINE HCL 50453618002 Active Kayla Cooper MD Active CLONAZEPAM 0.5 MG TABS Take one tablet in the morning and 1.5 table t at 7pm CLONAZEPAM 18924878904 Active Kayla Cooper MD Active CETIRIZINE HCL 5 MG TABS Take 1 tablet by mouth daily CETIRIZINE HCL 42983523929 Active Kayla Cooper MD Active BACLOFEN 10 MG TABS Take one tablet by mouth three times a day BACLOFEN 51525122320 Active Kayla Cooper MD Active GABAPENTIN 300 MG CAPS Take two tablets by mouth every evening GABAPENTIN 300 MG CAPS 996641 GABAPENTIN Inactive MELOXICAM 7.5 MG TABS 1 tablet by mouth daily MELOXICAM 7.5 MG TABS 835198 MELOXICAM Inactive LOVASTATIN 20 MG TABS Take 1 tablet by mouth daily 201 02/12/20 LOVASTATIN 20 MG TABS 094653 LOVASTATIN Inactive DIFLUCAN 150 MG TABS 1 qd DIFLUCAN 150 MG T ABS 300996 FLUCONAZOLE Inactive VITAMIN D3 2000 UNIT TABS 1 daily, for vitamin D deficiency 2014 VITAMIN D3 2000 UNIT TABS CHOLECALCIFEROL Inacti ve BACTRIM DS 800-160 MG TAB 1 tab by mouth twice daily 2 BACTRIM DS 800-160 MG TAB TRIMETHOPRIM-SULFAMETHOXAZOLE Inac tive ZITHROMAX 250 MG TAB 2 po today, then 1 po q days 2-5 ZITHROMAX 250 MG TAB 0443580 AZITHROMYCIN Inactive Advance Directives Directive Description Start [...] Panel - Chemistry sodium, serum 138 mmol/L 617-071 8169/10/20 potassium, serum 4.5 mmol/L 3.5-5.2 chloride, serum [...] 0.90 mg/dL 0.00-1.00 cholesterol, serum 237 mg/dL 921-119 1569/10/20 triglyceride, serum, fasting 71 mg/dL 30-200 HDL [...] Panel - Chemistry cholesterol, serum 221 mg/dL 979-317 7857/01/23 triglyceride, serum, fasting 81 mg/dL 30-200 HDL [...] negative Encounters Code Encounter Date Provider Facility CPT-03063 Level 4 Est. Patient 13:50:45 CDT Tesfaye pearson MD [facility] CPT-91582 Level 3 Est. Patient 10:16:10 CDT Tesfaye pearson MD [facility] CPT-56737 Level 3 Est. Patient 16:36:07 CODY jameson MD [facility] CPT-28336 Level 4 Est. Patient 16:00:14 COMMERCIAL REAL ESTATE UNDERWRITER Tesfaye pearson MD [facility] CPT-81683 Level 4 Est. Patient 11:02:24 COMMERCIAL REAL ESTATE UNDERWRITER Tesfaye pearson MD [facility] CPT-59919 Level 3 Est. Patient 20:21:43 COMMERCIAL REAL ESTATE UNDERWRITER Kayla jameson MD [facility] CPT-41633 Level 3 Est. Patient 13:27:28 COMMERCIAL REAL ESTATE UNDERWRITER Kayla jameson MD [facility] CPT-84733 Level 4 Est. Patient 15:57:17 COMMERCIAL REAL ESTATE UNDERWRITER Tesfaye pearson MD [facility] CPT-76305 Level 3 New Patient 13:25:47 CDT Tesfaye kidd MD [facility] CPT-05422 Level 3 New Patient 17:22:21 CDT J John angel MD [facility] Procedures Code Procedure Name Date Entry Date Standard Desc ription CPT-J3420 Vitamin B12 1000mcg (Cyanocobalamin) 08:57:15 CDT CPT-61524 Abx/Therapy Injection 08:57:15 CDT CPT-J3420 Vitamin B12 1000mcg (Cyanocobalamin) 10:59:03 CDT CPT-02842 Abx/Therapy Injection 10:59:03 CDT CPT-J3420 Vitamin B12 1000mcg (Cyanocobalamin) 15:05:39 CDT CPT-53254 Abx/Therapy Injection 15:05:39 CDT CPT-J3420 Vitamin B12 1000mcg (Cyanocobalamin) 13:50:45 CDT CPT-J3420 Vitamin B12 1000mcg (Cyanocobalamin) 08:48:55 CDT CPT-12590 Abx/Therapy Injection 08:48:55 CDT CPT-J3420 Vitamin B12 1000mcg (Cyanocobalamin) 09:14:54 CDT CPT-35804 Abx/Therapy Injection 09:14:54 CDT CPT-J3420 Vitamin B12 1000mcg (Cyanocobalamin) 09:06:06 CDT CPT-36584 Abx/Therapy Injection 09:06:06 CDT CPT-J3420 Vitamin B12 1000mcg (Cyanocobalamin) 09:49:14 CDT CPT-05888 Abx/Therapy Injection 09:49:14 CDT CPT-J3420 Vitamin B12 1000mcg (Cyanocobalamin) 09:10:30 COMMERCIAL REAL ESTATE UNDERWRITER CPT-53533 Abx/Therapy Injection 09:10:30 COMMERCIAL REAL ESTATE UNDERWRITER CPT-J3420 Vitamin B12 1000mcg (Cyanocobalamin) 09:11:07 COMMERCIAL REAL ESTATE UNDERWRITER CPT-26947 Abx/Therapy Injection 09:11:07 COMMERCIAL REAL ESTATE UNDERWRITER CPT-J3420 Vitamin B12 1000mcg (Cyanocobalamin) 09:57:03 COMMERCIAL REAL ESTATE UNDERWRITER CPT-33788 Abx/Therapy Injection 09:57:03 COMMERCIAL REAL ESTATE UNDERWRITER CPT-J3420 Vitamin B12 1000mcg (Cyanocobalamin) 09:23:21 COMMERCIAL REAL ESTATE UNDERWRITER CPT-35967 Abx/Therapy Injection 09:23:21 COMMERCIAL REAL ESTATE UNDERWRITER CPT-38169 Urine Dip (Floor Use Only) 20:21:44 COMMERCIAL REAL ESTATE UNDERWRITER 201 02/12/11 CPT-21648 UA Dip Auto (Floor Use Only) 10:04:39 COMMERCIAL REAL ESTATE UNDERWRITER 2 CPT-92028 Urine Dip (Floor Use Only) 13:27:28 COMMERCIAL REAL ESTATE UNDERWRITER 201 02/12/01 CPT-02054 Bladder Scan 13:27:28 COMMERCIAL REAL ESTATE UNDERWRITER CPT-99494 Abd single AP View 14:30:51 COMMERCIAL REAL ESTATE UNDERWRITER CPT-OV Office Visit 10:15:43 CDT CPT-10166 Urine Dip (Floor Use Only) 17:22:21 CDT 201 02/09/02 CPT-56123 Bladder Scan 17:22:21 CDT
--- OUTSIDE RECORDS SUMMARY | 2020-05-05 12:45 | XMS REPORT | Clinical Summary ---
Author Author Talon, Jeri Wood Organization [facility] Address Unknown Phone Unavailable Allergies, Adverse [...] then 1 po q days 2-5 AZITHROMYCIN [id number] No Longer Active Tesfaye Sherman MD Acti ve BACTRIM DS 800-160 MG TAB 1 tab by mouth twice daily 2 TRIMETHOPRIM-SULFAMETHOXAZOLE 15911576424 No Longer Active Tesfaye Sherman MD Active VITAMIN D3 2000 UNIT TABS 1 daily, for vitamin D deficiency CHOLECALCIFEROL 71607179579 Active Tesfaye Sherman MD Activ e PRELIEF 340 (65-50) MG (CA-P) ORAL TABS CALCIUM GLYCEROPHOSPHATE 96016764333 Active Tesfaye Sherman MD Active [facility] NIACIN FLUSH FREE 400-100 MG CAPS 1 daily NIACIN-INOSITOL 13319270583 Active Kayla Cooper MD Active DIFLUCAN 150 MG TABS 1 qd FLUCONAZOLE 85019 500271 No Longer Active Kayla Cooper MD Active FLUTICASONE PROPIONATE 50 MCG/ACT SUSP 1 spray each nostril twice daily FLUTICASONE PROPIONATE 88718375656 Active Tesfaye armenta MD Active LOVASTATIN 20 MG TABS Take 1 tablet by mouth daily LOVASTATIN 66154631891 No Longer Active Tesfaye Sherman MD Active MELOXICAM 7.5 MG TABS 1 tablet by mouth daily M ELOXICAM 41002091160 No Longer Active Tesfaye Sherman MD Active GABAPENTIN 300 MG CAPS Take two tablets by mouth every evening GABAPENTIN 63080244444 No Longer Active Edith Burch MD Active TRIMETHOPRIM 100 MG TABS 1/2 qd TRIMETHOPRIM 1688087 3001 Active Kayla Cooper MD Active TIZANIDINE HCL 2 MG TABS take one tablet by mouth every day at bedtime at 9pm TIZANIDINE HCL 06968527340 Active Kayla Cooper MD Active OXYCODONE-ACETAMINOPHEN 5-325 MG TABS Take one tablet by mouth every 6 hours as needed. Max 12 tabs/day as needed OXYCODONE-ACETAMINOP HEN 57302366339 Active Tesfaye Sherman MD Active CYMBALTA 60 MG CPEP Take 1 tablet by mouth daily D ULOXETINE HCL 27693895649 Active Kayla Cooper MD Active CLONAZEPAM 0.5 MG TABS Take one tablet in the morning and 1.5 table t at 7pm CLONAZEPAM 84036350194 Active Kayla Cooper MD Active CETIRIZINE HCL 5 MG TABS Take 1 tablet by mouth daily CETIRIZINE HCL 63773110766 Active Kayla Cooper MD Active BACLOFEN 10 MG TABS Take one tablet by mouth three times a day BACLOFEN 45357055100 Active Kayla Cooper MD Active GABAPENTIN 300 MG CAPS Take two tablets by mouth every evening GABAPENTIN 300 MG CAPS 873541 GABAPENTIN Inactive MELOXICAM 7.5 MG TABS 1 tablet by mouth daily MELOXICAM 7.5 MG TABS 160781 MELOXICAM Inactive LOVASTATIN 20 MG TABS Take 1 tablet by mouth daily 201 02/12/20 LOVASTATIN 20 MG TABS 435341 LOVASTATIN Inactive DIFLUCAN 150 MG TABS 1 qd DIFLUCAN 150 MG T ABS 600201 FLUCONAZOLE Inactive BACTRIM DS 800-160 MG TAB 1 tab by mouth twice daily 2 BACTRIM DS 800-160 MG TAB TRIMETHOPRIM-SULFAMETHOXAZOLE Inac tive ZITHROMAX 250 MG TAB 2 po today, then 1 po q days 2-5 ZITHROMAX 250 MG TAB 9828005 AZITHROMYCIN Inactive Advance Directives Directive Description Start [...] Panel - Chemistry sodium, serum 138 mmol/L 036-405 0441/10/20 potassium, serum 4.5 mmol/L 3.5-5.2 chloride, serum [...] 0.90 mg/dL 0.00-1.00 cholesterol, serum 237 mg/dL 754-874 9645/10/20 triglyceride, serum, fasting 71 mg/dL 30-200 HDL [...] Panel - Chemistry cholesterol, serum 221 mg/dL 951-427 5500/01/23 triglyceride, serum, fasting 81 mg/dL 30-200 HDL [...] negative Encounters Code Encounter Date Provider Facility CPT-35569 Level 3 Est. Patient 10:16:10 CDT Tesfaye pearson MD [facility] CPT-22669 Level 3 Est. Patient 16:36:07 BOWL SANDER Kayla jameson MD [facility] CPT-98611 Level 4 Est. Patient 16:00:14 BOWL SANDER Tesfaye pearson MD [facility] CPT-91113 Level 4 Est. Patient 11:02:24 BOWL SANDER Tesfaye pearson MD [facility] CPT-43952 Level 3 Est. Patient 20:21:43 BOWL SANDER Kayla jameson MD [facility] CPT-52846 Level 3 Est. Patient 13:27:28 BOWL SANDER Kayla jameson MD [facility] CPT-67005 Level 4 Est. Patient 15:57:17 BOWL SANDER Tesfaye pearson MD [facility] CPT-15635 Level 3 New Patient 13:25:47 CDT Tesfaye kidd MD [facility] CPT-19655 Level 3 New Patient 17:22:21 CDT Kayla angel MD [facility] Procedures Code Procedure Name Date Entry Date Standard Desc ription CPT-J3420 Vitamin B12 1000mcg (Cyanocobalamin) 09:06:06 CDT CPT-85650 Abx/Therapy Injection 09:06:06 CDT CPT-J3420 Vitamin B12 1000mcg (Cyanocobalamin) 09:49:14 CDT CPT-56875 Abx/Therapy Injection 09:49:14 CDT CPT-J3420 Vitamin B12 1000mcg (Cyanocobalamin) 09:10:30 BOWL SANDER CPT-38962 Abx/Therapy Injection 09:10:30 BOWL SANDER CPT-J3420 Vitamin B12 1000mcg (Cyanocobalamin) 09:11:07 BOWL SANDER CPT-04282 Abx/Therapy Injection 09:11:07 BOWL SANDER CPT-J3420 Vitamin B12 1000mcg (Cyanocobalamin) 09:57:03 BOWL SANDER CPT-19610 Abx/Therapy Injection 09:57:03 BOWL SANDER CPT-J3420 Vitamin B12 1000mcg (Cyanocobalamin) 09:23:21 BOWL SANDER CPT-13924 Abx/Therapy Injection 09:23:21 BOWL SANDER CPT-61022 Urine Dip (Floor Use Only) 20:21:44 BOWL SANDER 201 02/12/11 CPT-63299 UA Dip Auto (Floor Use Only) 10:04:39 BOWL SANDER 2 CPT-02186 Urine Dip (Floor Use Only) 13:27:28 BOWL SANDER 201 02/12/01 CPT-84642 Bladder Scan 13:27:28 BOWL SANDER CPT-76040 Abd single AP View 14:30:51 BOWL SANDER CPT-OV Office Visit 10:15:43 CDT CPT-55904 Urine Dip (Floor Use Only) 17:22:21 CDT 201 02/09/02 CPT-54811 Bladder Scan 17:22:21 CDT
--- OUTSIDE RECORDS SUMMARY | 2020-05-05 12:45 | XMS REPORT | Clinical Summary ---
Author Author Jeri Hanley Organization [facility] Address Unknown [...] Instructions Start Date Stop Date Generic Name [facility] Status Provider Patient Instruction GABAPENTIN 300 MG CAPS Take two tablets by mouth every evening GABAPENTIN 37502997083 No Longer Active Edith Burch MD Active DIFLUCAN 150 MG TABS 1 qd FLUCONAZOLE 94322023391 Active Kayla Cooper MD Active TRIMETHOPRIM 100 MG TABS 1/2 qd TRIMETHOPRIM 7789991 3001 Active Kayla Cooper MD Active TIZANIDINE HCL 2 MG TABS take one tablet by mouth every day at bedtime at 9pm TIZANIDINE HCL 01470233626 Active Kayla Cooper MD Active OXYCODONE-ACETAMINOPHEN 5-325 MG TABS Take one tablet by mouth every 6 hours as needed. Max 12 tabs/day as needed OXYCODONE-ACETAMINOP HEN 28620274288 Active Kayla Cooper MD Active LOVASTATIN 20 MG TABS Take 1 tablet by mouth daily LOVASTATIN 37785166991 Active Kayla Cooper MD Active CYMBALTA 60 MG CPEP Take 1 tablet by mouth daily D ULOXETINE HCL 26208762569 Active Kayla Cooper MD Active CLONAZEPAM 0.5 MG TABS Take one tablet in the morning and 1.5 table t at 7pm CLONAZEPAM 38958983038 Active Kayla Cooper MD Active CETIRIZINE HCL 5 MG TABS Take 1 tablet by mouth daily CETIRIZINE HCL 07669870409 Active Kayla Cooper MD Active BACLOFEN 10 MG TABS Take one tablet by mouth three times a day BACLOFEN 87852484166 Active Kayla Cooper MD Active GABAPENTIN 300 MG CAPS Take two tablets by mouth every evening GABAPENTIN 300 MG CAPS 446705 GABAPENTIN Inactive Advance Directives Directive Description Start [...] negative Encounters Code Encounter Date Provider Facility CPT-19314 Level 3 New Patient 17:22:21 CDT Kayla angel MD [facility] Procedures Code Procedure Name Date Entry Date Standard Desc ription CPT-OV Office Visit 10:15:43 CDT CPT-17898 Urine Dip (Floor Use Only) 17:22:21 CDT 201 02/09/02 CPT-53506 Bladder Scan 17:22:21 CDT
--- OUTSIDE RECORDS SUMMARY | 2020-05-05 12:46 | XMS REPORT | Clinical Summary ---
Author Author Talon, Jeri Wood Organization [facility] Address Unknown Phone Unavailable Allergies, Adverse Reactions, [...] tab by mouth twice daily 2 TRIMETHOPRIM-SULFAMETHOXAZOLE 86273769571 Active Tesfaye Sherman MD Active VITAMIN D3 2000 UNIT TABS 1 daily, for vitamin D deficiency CHOLECALCIFEROL 34536697916 Active Tesfaye Sherman MD Activ e PRELIEF 340 (65-50) MG (CA-P) ORAL TABS CALCIUM GLYCEROPHOSPHATE 69190832290 Active Tesfaye Sherman MD Active [facility] NIACIN FLUSH FREE 400-100 MG CAPS 1 daily NIACIN-INOSITOL 26246981062 Active Kayla Cooper MD Active DIFLUCAN 150 MG TABS 1 qd FLUCONAZOLE 98066 450608 No Longer Active Kayla Cooper MD Active FLUTICASONE PROPIONATE 50 MCG/ACT SUSP 1 spray each nostril twice daily FLUTICASONE PROPIONATE 12533402610 Active Tesfaye armenta MD Active LOVASTATIN 20 MG TABS Take 1 tablet by mouth daily LOVASTATIN 68648838770 No Longer Active Tesfaye Sherman MD Active MELOXICAM 7.5 MG TABS 1 tablet by mouth daily Gisela ELOXICAM 34056099186 No Longer Active Tesfaye Sherman MD Active GABAPENTIN 300 MG CAPS Take two tablets by mouth every evening GABAPENTIN 88383398804 No Longer Active Edith Burch MD Active TRIMETHOPRIM 100 MG TABS 1/2 qd TRIMETHOPRIM 5406644 3001 Active Kayla Cooper MD Active TIZANIDINE HCL 2 MG TABS take one tablet by mouth every day at bedtime at 9pm TIZANIDINE HCL 29815498875 Active Kayla Cooper MD Active OXYCODONE-ACETAMINOPHEN 5-325 MG TABS Take one tablet by mouth every 6 hours as needed. Max 12 tabs/day as needed OXYCODONE-ACETAMINOP HEN 90828592489 Active Tesfaye Sherman MD Active CYMBALTA 60 MG CPEP Take 1 tablet by mouth daily D ULOXETINE HCL 84243283816 Active Kayla Cooper MD Active CLONAZEPAM 0.5 MG TABS Take one tablet in the morning and 1.5 table t at 7pm CLONAZEPAM 83352330553 Active Kayla Cooper MD Active CETIRIZINE HCL 5 MG TABS Take 1 tablet by mouth daily CETIRIZINE HCL 50341788524 Active Kayla Cooper MD Active BACLOFEN 10 MG TABS Take one tablet by mouth three times a day BACLOFEN 92154007761 Active Kayla Cooper MD Active GABAPENTIN 300 MG CAPS Take two tablets by mouth every evening GABAPENTIN 300 MG CAPS 390068 GABAPENTIN Inactive MELOXICAM 7.5 MG TABS 1 tablet by mouth daily MELOXICAM 7.5 MG TABS 556298 MELOXICAM Inactive LOVASTATIN 20 MG TABS Take 1 tablet by mouth daily 201 02/12/20 LOVASTATIN 20 MG TABS 720592 LOVASTATIN Inactive DIFLUCAN 150 MG TABS 1 qd DIFLUCAN 150 MG T ABS 690950 FLUCONAZOLE Inactive Advance Directives Directive Description Start Date PERMISSION TO SHARE PERMISSION TO SHARE Vital Signs Date Name Value Unit Range Description blood pressure, diastolic - 8462-4 83 mm[Hg] [...] Panel - Chemistry sodium, serum 138 mmol/L 602-816 3823/10/20 potassium, serum 4.5 mmol/L 3.5-5.2 chloride, serum [...] 0.90 mg/dL 0.00-1.00 cholesterol, serum 237 mg/dL 834-374 4527/10/20 triglyceride, serum, fasting 71 mg/dL 30-200 HDL [...] Panel - Chemistry cholesterol, serum 221 mg/dL 139-014 9745/01/23 triglyceride, serum, fasting 81 mg/dL 30-200 HDL [...] negative Encounters Code Encounter Date Provider Facility CPT-14622 Level 4 Est. Patient 16:00:14 WOUND SPECIALIST Tesfaye pearson MD [facility] CPT-54993 Level 4 Est. Patient 11:02:24 WOUND SPECIALIST Tesfaye pearson MD [facility] CPT-84952 Level 3 Est. Patient 20:21:43 WOUND SPECIALIST Kayla jameson MD [facility] CPT-47463 Level 3 Est. Patient 13:27:28 WOUND SPECIALIST Kayla jameson MD [facility] CPT-77122 Level 4 Est. Patient 15:57:17 WOUND SPECIALIST Tesfaye pearson MD [facility] CPT-40723 Level 3 New Patient 13:25:47 CDT Tesfaye kidd MD [facility] CPT-83897 Level 3 New Patient 17:22:21 CDT Kayla angel MD [facility] Procedures Code Procedure Name Date Entry Date Standard Desc ription CPT-J3420 Vitamin B12 1000mcg (Cyanocobalamin) 09:23:21 WOUND SPECIALIST CPT-99286 Abx/Therapy Injection 09:23:21 WOUND SPECIALIST CPT-79236 Urine Dip (Floor Use Only) 20:21:44 WOUND SPECIALIST 201 02/12/11 CPT-38347 UA Dip Auto (Floor Use Only) 10:04:39 WOUND SPECIALIST 2 CPT-18461 Urine Dip (Floor Use Only) 13:27:28 WOUND SPECIALIST 201 02/12/01 CPT-35578 Bladder Scan 13:27:28 WOUND SPECIALIST CPT-59078 Abd single AP View 14:30:51 WOUND SPECIALIST CPT-OV Office Visit 10:15:43 CDT CPT-88405 Urine Dip (Floor Use Only) 17:22:21 CDT 201 02/09/02 CPT-96246 Bladder Scan 17:22:21 CDT
--- OUTSIDE RECORDS SUMMARY | 2020-05-05 12:46 | XMS REPORT | Clinical Summary ---
Author Author Talon, Jeri Wood Organization [facility] Address Unknown Phone Unavailable Allergies, Adverse [...] Instructions Start Date Stop Date Generic Name [facility] Status Provider Patient Instruction GABAPENTIN 300 MG CAPS Take two tablets by mouth every evening GABAPENTIN 47336079638 No Longer Active Edith Burch MD Active DIFLUCAN 150 MG TABS 1 qd FLUCONAZOLE 35415092739 Active Kayla Cooper MD Active TRIMETHOPRIM 100 MG TABS 1/2 qd TRIMETHOPRIM 1202390 3001 Active Kayla Cooper MD Active TIZANIDINE HCL 2 MG TABS take one tablet by mouth every day at bedtime at 9pm TIZANIDINE HCL 70272987460 Active Kayla Cooper MD Active OXYCODONE-ACETAMINOPHEN 5-325 MG TABS Take one tablet by mouth every 6 hours as needed. Max 12 tabs/day as needed OXYCODONE-ACETAMINOP HEN 36995886710 Active Kayla Cooper MD Active LOVASTATIN 20 MG TABS Take 1 tablet by mouth daily LOVASTATIN 46050603135 Active Kayla Cooper MD Active CYMBALTA 60 MG CPEP Take 1 tablet by mouth daily D ULOXETINE HCL 71069686862 Active Kayla Cooper MD Active CLONAZEPAM 0.5 MG TABS Take one tablet in the morning and 1.5 table t at 7pm CLONAZEPAM 76738723325 Active Kayla Cooper MD Active CETIRIZINE HCL 5 MG TABS Take 1 tablet by mouth daily CETIRIZINE HCL 62097028477 Active Kayla Cooper MD Active BACLOFEN 10 MG TABS Take one tablet by mouth three times a day BACLOFEN 65238381621 Active Kayla Cooper MD Active GABAPENTIN 300 MG CAPS Take two tablets by mouth every evening GABAPENTIN 300 MG CAPS 367848 GABAPENTIN Inactive Advance Directives Directive Description Start [...] negative Encounters Code Encounter Date Provider Facility CPT-83962 Level 3 New Patient 17:22:21 CDT Kayla angel MD [facility] Procedures Code Procedure Name Date Entry Date Standard Desc ription CPT-OV Office Visit 10:15:43 CDT CPT-82111 Urine Dip (Floor Use Only) 17:22:21 CDT 201 02/09/02 CPT-91630 Bladder Scan 17:22:21 CDT
--- OUTSIDE RECORDS SUMMARY | 2020-05-05 12:46 | XMS REPORT | Clinical Summary ---
Author Author Talon, Jeri Wood Organization [facility] Address Unknown Phone Unavailable Allergies, Adverse [...] of psychiatric condition Diabetes V18.0 Active Kayla Cooepr MD Family history of diabetes mellitus U [...] Tesfaye Sherman MD Other malaise and fatigue Medication List Medication Instructions Start Date Stop Date Generic Name NDC Status Provider Patient Instruction BACTRIM DS 800-160 MG TAB 1 tab by mouth twice daily 2 TRIMETHOPRIM-SULFAMETHOXAZOLE 84345177902 Active Tesfaye Sherman MD Active VITAMIN D3 2000 UNIT TABS 1 daily, for vitamin D deficiency CHOLECALCIFEROL 04195559009 Active Tesfaye Sherman MD Activ e PRELIEF 340 (65-50) MG (CA-P) ORAL TABS CALCIUM GLYCEROPHOSPHATE 63927544068 Active Tesfaye Sherman MD Active [facility] NIACIN FLUSH FREE 400-100 MG CAPS 1 daily NIACIN-INOSITOL 84962899712 Active Kayla Cooper MD Active DIFLUCAN 150 MG TABS 1 qd FLUCONAZOLE 34144 603662 No Longer Active Kayla Cooper MD Active FLUTICASONE PROPIONATE 50 MCG/ACT SUSP 1 spray each nostril twice daily FLUTICASONE PROPIONATE 58853979648 Active Tesfaye armenta MD Active LOVASTATIN 20 MG TABS Take 1 tablet by mouth daily LOVASTATIN 98227262598 No Longer Active Tesfaye Sherman MD Active MELOXICAM 7.5 MG TABS 1 tablet by mouth daily M ELOXICAM 95765237178 No Longer Active Tesfaye Sherman MD Active GABAPENTIN 300 MG CAPS Take two tablets by mouth every evening GABAPENTIN 51273915204 No Longer Active Edith Burch MD Active TRIMETHOPRIM 100 MG TABS 1/2 qd TRIMETHOPRIM 4478003 3001 Active Kayla Cooper MD Active TIZANIDINE HCL 2 MG TABS take one tablet by mouth every day at bedtime at 9pm TIZANIDINE HCL 32778745710 Active Kayla Cooper MD Active OXYCODONE-ACETAMINOPHEN 5-325 MG TABS Take one tablet by mouth every 6 hours as needed. Max 12 tabs/day as needed OXYCODONE-ACETAMINOP HEN 82052407444 Active Tesfaye Sherman MD Active CYMBALTA 60 MG CPEP Take 1 tablet by mouth daily D ULOXETINE HCL 20674814150 Active Kayla Cooper MD Active CLONAZEPAM 0.5 MG TABS Take one tablet in the morning and 1.5 table t at 7pm CLONAZEPAM 74505700159 Active Kayla Cooper MD Active CETIRIZINE HCL 5 MG TABS Take 1 tablet by mouth daily CETIRIZINE HCL 59529703047 Active Kayla Cooper MD Active BACLOFEN 10 MG TABS Take one tablet by mouth three times a day BACLOFEN 60276918099 Active Kayla Cooper MD Active GABAPENTIN 300 MG CAPS Take two tablets by mouth every evening GABAPENTIN 300 MG CAPS 045936 GABAPENTIN Inactive MELOXICAM 7.5 MG TABS 1 tablet by mouth daily MELOXICAM 7.5 MG TABS 583520 MELOXICAM Inactive LOVASTATIN 20 MG TABS Take 1 tablet by mouth daily 201 02/12/20 LOVASTATIN 20 MG TABS 582875 LOVASTATIN Inactive DIFLUCAN 150 MG TABS 1 qd DIFLUCAN 150 MG T ABS 611577 FLUCONAZOLE Inactive Advance Directives Directive Description Start [...] Panel - Chemistry sodium, serum 138 mmol/L 015-638 3665/10/20 potassium, serum 4.5 mmol/L 3.5-5.2 chloride, serum [...] 0.90 mg/dL 0.00-1.00 cholesterol, serum 237 mg/dL 130-266 0630/10/20 triglyceride, serum, fasting 71 mg/dL 30-200 HDL [...] Panel - Chemistry cholesterol, serum 221 mg/dL 128-304 2041/01/23 triglyceride, serum, fasting 81 mg/dL 30-200 HDL [...] negative Encounters Code Encounter Date Provider Facility CPT-25893 Level 4 Est. Patient 11:02:24 SUPERVISOR STAGE CARPENTRY Tesfaye pearson MD [facility] CPT-47945 Level 3 Est. Patient 20:21:43 SUPERVISOR STAGE CARPENTRY Kayla jameson MD [facility] CPT-97665 Level 3 Est. Patient 13:27:28 SUPERVISOR STAGE CARPENTRY Kayla jameson MD [facility] CPT-29403 Level 4 Est. Patient 15:57:17 SUPERVISOR STAGE CARPENTRY Tesfaye pearson MD [facility] CPT-40433 Level 3 New Patient 13:25:47 CDT Tesfaye kidd MD [facility] CPT-06322 Level 3 New Patient 17:22:21 CDT Kayla angel MD [facility] Procedures Code Procedure Name Date Entry Date Standard Desc ription CPT-17288 Urine Dip (Floor Use Only) 20:21:44 SUPERVISOR STAGE CARPENTRY 201 02/12/11 CPT-47998 UA Dip Auto (Floor Use Only) 10:04:39 SUPERVISOR STAGE CARPENTRY 2 CPT-48378 Urine Dip (Floor Use Only) 13:27:28 SUPERVISOR STAGE CARPENTRY 201 02/12/01 CPT-94340 Bladder Scan 13:27:28 SUPERVISOR STAGE CARPENTRY CPT-40164 Abd single AP View 14:30:51 SUPERVISOR STAGE CARPENTRY CPT-OV Office Visit 10:15:43 CDT CPT-43536 Urine Dip (Floor Use Only) 17:22:21 CDT 201 02/09/02 CPT-31253 Bladder Scan 17:22:21 CDT
--- OUTSIDE RECORDS SUMMARY | 2020-05-05 12:46 | XMS REPORT | Clinical Summary ---
[...] Active Tesfaye Sherman MD Anxiety state, unspecified Medication List Medication Instructions Start Date Stop Date Generic Name ND Status Provider Patient Instruction MELOXICAM 7.5 MG TABS 1 tablet by mouth daily M ELOXICAM 29119426023 Active Tesfaye Sherman MD Active GABAPENTIN 300 MG CAPS Take two tablets by mouth every evening GABAPENTIN 18402119799 No Longer Active Edith Burch MD Active DIFLUCAN 150 MG TABS 1 qd FLUCONAZOLE 50957545092 Active Kayla Cooper MD Active TRIMETHOPRIM 100 MG TABS 1/2 qd TRIMETHOPRIM 4283146 3001 Active Kayla Cooper MD Active TIZANIDINE HCL 2 MG TABS take one tablet by mouth every day at bedtime at 9pm TIZANIDINE HCL 08235324563 Active Kayla Cooper MD Active OXYCODONE-ACETAMINOPHEN 5-325 MG TABS Take one tablet by mouth every 6 hours as needed. Max 12 tabs/day as needed OXYCODONE-ACETAMINOP HEN 93396049848 Active Kayla Cooper MD Active LOVASTATIN 20 MG TABS Take 1 tablet by mouth daily LOVASTATIN 09544625628 Active Kayla Cooper MD Active CYMBALTA 60 MG CPEP Take 1 tablet by mouth daily D ULOXETINE HCL 57799691776 Active Kayla Cooper MD Active CLONAZEPAM 0.5 MG TABS Take one tablet in the morning and 1.5 table t at 7pm CLONAZEPAM 08863394768 Active Kayla Cooper MD Active CETIRIZINE HCL 5 MG TABS Take 1 tablet by mouth daily CETIRIZINE HCL 82704952942 Active Kayla Cooper MD Active BACLOFEN 10 MG TABS Take one tablet by mouth three times a day BACLOFEN 22438781734 Active Kayla Cooper MD Active GABAPENTIN 300 MG CAPS Take two tablets by mouth every evening GABAPENTIN 300 MG CAPS 888893 GABAPENTIN Inactive Advance Directives Directive Description Start Date PERMISSION TO SHARE PERMISSION TO SHARE Vital Signs Date Name Value Unit Range Description blood pressure, diastolic 95 mm[Hg] BP lyon blood pressure, systolic 154 mm[Hg] BP sys pulse rate E&M 76 /min Heart rate temperature E&M 97.1 [degF] Body temp erature weight E&M 110 [lb_av] Weight Measure d blood pressure, diastolic [...] Panel - Chemistry sodium, serum 138 mmol/L 455-036 7835/10/20 potassium, serum 4.5 mmol/L 3.5-5.2 chloride, serum [...] 0.90 mg/dL 0.00-1.00 cholesterol, serum 237 mg/dL 938-048 1254/10/20 triglyceride, serum, fasting 71 mg/dL 30-200 HDL [...] count 390 10^3/MM^3 10*3/mm3 142-424 Lab Report: UADIP W/MICRO, AUTO - Chemis [...] negative Encounters Code Encounter Date Provider Facility CPT-10765 Level 3 New Patient 13:25:47 CDT Tesfaye kidd MD [facility] CPT-95061 Level 3 New Patient 17:22:21 CDT Kayla angel MD [facility] Procedures Code Procedure Name Date Entry Date Standard Desc ription CPT-OV Office Visit 10:15:43 CDT CPT-33833 Urine Dip (Floor Use Only) 17:22:21 CDT 201 02/09/02 CPT-88062 Bladder Scan 17:22:21 CDT
--- OUTSIDE RECORDS SUMMARY | 2020-05-05 12:46 | XMS REPORT | Clinical Summary ---
Author Author Talon, Jeri Wood Organization [facility] Address Unknown Phone Unavailable Allergies, [...] Instructions Start Date Stop Date Generic Name [facility] Status Provider Patient Instruction GABAPENTIN 300 MG CAPS Take two tablets by mouth every evening GABAPENTIN 86859653251 No Longer Active Edith Burch MD Active DIFLUCAN 150 MG TABS 1 qd FLUCONAZOLE 58162655658 Active Kayla Cooper MD Active TRIMETHOPRIM 100 MG TABS 1/2 qd TRIMETHOPRIM 7847089 3001 Active Kayla Cooper MD Active TIZANIDINE HCL 2 MG TABS take one tablet by mouth every day at bedtime at 9pm TIZANIDINE HCL 20573787520 Active Kayla Cooper MD Active OXYCODONE-ACETAMINOPHEN 5-325 MG TABS Take one tablet by mouth every 6 hours as needed. Max 12 tabs/day as needed OXYCODONE-ACETAMINOP HEN 00461351420 Active Kayla Cooper MD Active LOVASTATIN 20 MG TABS Take 1 tablet by mouth daily LOVASTATIN 91734246759 Active Kayla Cooper MD Active CYMBALTA 60 MG CPEP Take 1 tablet by mouth daily D ULOXETINE HCL 73046329825 Active Kayla Cooper MD Active CLONAZEPAM 0.5 MG TABS Take one tablet in the morning and 1.5 table t at 7pm CLONAZEPAM 10797291976 Active Kayla Cooper MD Active CETIRIZINE HCL 5 MG TABS Take 1 tablet by mouth daily CETIRIZINE HCL 74067543249 Active Kayla Cooper MD Active BACLOFEN 10 MG TABS Take one tablet by mouth three times a day BACLOFEN 71289413211 Active Kayla Cooper MD Active GABAPENTIN 300 MG CAPS Take two tablets by mouth every evening GABAPENTIN 300 MG CAPS 145707 GABAPENTIN Inactive Advance Directives Directive Description Start [...] negative Encounters Code Encounter Date Provider Facility CPT-72491 Level 3 New Patient 17:22:21 CDT Kayla angel MD [facility] Procedures Code Procedure Name Date Entry Date Standard Desc ription CPT-OV Office Visit 10:15:43 CDT CPT-48109 Urine Dip (Floor Use Only) 17:22:21 CDT 201 02/09/02 CPT-15879 Bladder Scan 17:22:21 CDT
--- OUTSIDE RECORDS SUMMARY | 2020-05-05 12:46 | XMS REPORT | Clinical Summary ---
Author Author Admin, Jeri Wood Organization [facility] Address Unknown Phone Unavailable Allergies, Adverse [...] Other and unspecified hyperlipidemia ANXIETY 300.00 Active Tsefaye Sherman MD Anxiety state, unspecified Spasticity 781.0 Active Tesfaye Sherman MD Abnormal involuntary movements Pelvic Pain-Female 625.9 Active Kayla paul MD Unspecified symptom associated with female genital organs Medication List Medication Instructions Start Date Stop Date Generic Name NDC Status Provider Patient Instruction [facility] NIACIN FLUSH FREE 400-100 MG CAPS 1 daily NIACIN-INOSITOL 48482346142 Active Kayla Cooper MD Active DIFLUCAN 150 MG TABS 1 qd FLUCONAZOLE 40244 681452 No Longer Active Kayla Cooper MD Active FLUTICASONE PROPIONATE 50 MCG/ACT SUSP 1 spray each nostril twice daily FLUTICASONE PROPIONATE 41405779391 Active Tesfaye armenta MD Active LOVASTATIN 20 MG TABS Take 1 tablet by mouth daily LOVASTATIN 87900552364 No Longer Active Tesfaye Sherman MD Active MELOXICAM 7.5 MG TABS 1 tablet by mouth daily M ELOXICAM 88230066807 No Longer Active Tesfaye Sherman MD Active GABAPENTIN 300 MG CAPS Take two tablets by mouth every evening GABAPENTIN 90181909189 No Longer Active Edith Burch MD Active TRIMETHOPRIM 100 MG TABS 1/2 qd TRIMETHOPRIM 8828910 3001 Active Kayla Cooper MD Active TIZANIDINE HCL 2 MG TABS take one tablet by mouth every day at bedtime at 9pm TIZANIDINE HCL 53555153774 Active Kayla Cooper MD Active OXYCODONE-ACETAMINOPHEN 5-325 MG TABS Take one tablet by mouth every 6 hours as needed. Max 12 tabs/day as needed OXYCODONE-ACETAMINOP HEN 25794789043 Active Tesfaye Sherman MD Active CYMBALTA 60 MG CPEP Take 1 tablet by mouth daily D ULOXETINE HCL 37290249159 Active Kayla Cooper MD Active CLONAZEPAM 0.5 MG TABS Take one tablet in the morning and 1.5 table t at 7pm CLONAZEPAM 16344737745 Active Kayla Cooper MD Active CETIRIZINE HCL 5 MG TABS Take 1 tablet by mouth daily CETIRIZINE HCL 09499654446 Active Kayla Cooper MD Active BACLOFEN 10 MG TABS Take one tablet by mouth three times a day BACLOFEN 27324134260 Active J John Cooper MD Active GABAPENTIN 300 MG CAPS Take two tablets by mouth every evening GABAPENTIN 300 MG CAPS 425743 GABAPENTIN Inactive MELOXICAM 7.5 MG TABS 1 tablet by mouth daily MELOXICAM 7.5 MG TABS 595936 MELOXICAM Inactive LOVASTATIN 20 MG TABS Take 1 tablet by mouth daily 201 02/12/20 LOVASTATIN 20 MG TABS 414449 LOVASTATIN Inactive DIFLUCAN 150 MG TABS 1 qd DIFLUCAN 150 MG T ABS 622954 FLUCONAZOLE Inactive Advance Directives Directive Description Start Date PERMISSION TO SHARE PERMISSION TO SHARE Vital Signs Date Name Value Unit Range Description blood pressure, diastolic - 8462-4 86 mm[Hg] [...] Panel - Chemistry sodium, serum 138 mmol/L 456-317 6396/10/20 potassium, serum 4.5 mmol/L 3.5-5.2 chloride, serum [...] 0.90 mg/dL 0.00-1.00 cholesterol, serum 237 mg/dL 363-596 4646/10/20 triglyceride, serum, fasting 71 mg/dL 30-200 HDL [...] 1.010 1.000-1.030 pH, urine, semiquantitative 8.0 5.0-8.5 glucose, urine, [...] triglyceride, target level 150 mg/dL Office Visit: Frequent UTI - Chemistry protein, [...] negative Encounters Code Encounter Date Provider Facility CPT-42749 Level 3 Est. Patient 20:21:43 CNP Kayla jameson MD [facility] CPT-76353 Level 3 Est. Patient 13:27:28 CNP Kayla jameson MD [facility] CPT-99540 Level 4 Est. Patient 15:57:17 CNP Tesfaye pearson MD [facility] CPT-47277 Level 3 New Patient 13:25:47 CDT Tesfaye kidd MD [facility] CPT-46685 Level 3 New Patient 17:22:21 CDT Kayla angel MD [facility] Procedures Code Procedure Name Date Entry Date Standard Desc ription CPT-82233 Urine Dip (Floor Use Only) 20:21:44 CNP 201 02/12/11 CPT-02859 UA Dip Auto (Floor Use Only) 10:04:39 CNP 2 CPT-21485 Urine Dip (Floor Use Only) 13:27:28 CNP 201 02/12/01 CPT-58931 Bladder Scan 13:27:28 CNP CPT-09241 Abd single AP View 14:30:51 CNP CPT-OV Office Visit 10:15:43 CDT CPT-93925 Urine Dip (Floor Use Only) 17:22:21 CDT 201 02/09/02 CPT-73450 Bladder Scan 17:22:21 CDT
--- OUTSIDE RECORDS SUMMARY | 2020-05-05 12:46 | XMS REPORT ---
Author Author [facility] Medic al Staff, RENE Wood Organization [facility] Address [address] [id number] Phone [phone] Care Team Providers Care Shaft Mechanic Name Role Phone MANUELITO SAMPSON MD PP [phone] Summary purpose TRANSITION OF CARE AUTO GENERATION Chief Complaint and Reason for Visit No authorized Reason for Visit (Admitting Diagnosis) is available for this visit . Problem list No authorized problems tracked for continuity of care are available for this vis it. Encounters No authorized problems tracked for encounter diagnoses are available for this vi sit. Medications No home medications recorded for this patient visit Allergies, adverse reactions, alerts No allergy information is available for this patient. Immunizations No immunizations recorded for this patient visit Relevant diagnostic tests and/or laboratory data No authorized results are available for this patient visit History of procedures No procedures recorded for this patient visit. Functional status No functional or cognitive status observations are available for this visit. Vital signs No authorized vital signs are available for this visit. Social history No Social History or smoking status observations were recorded for this visit. ( Unknown if ever smoked.) Treatment Plan No treatment plan text is available for this visit. Hospital discharge instructions No discharge instruction text is available for this visit.
--- OUTSIDE RECORDS SUMMARY | 2020-05-05 12:47 | XMS REPORT | Clinical Summary ---
Author Author Talon, Jeri Wood Organization [facility] Address Unknown Phone Unavailable Allergies, Adverse [...] tab by mouth twice daily 2 TRIMETHOPRIM-SULFAMETHOXAZOLE 07894770192 Active Tesfaye Sherman MD Active VITAMIN D3 2000 UNIT TABS 1 daily, for vitamin D deficiency CHOLECALCIFEROL 03486034635 Active Tesfaye Sherman MD Activ e PRELIEF 340 (65-50) MG (CA-P) ORAL TABS CALCIUM GLYCEROPHOSPHATE 10588419458 Active Tesfaye Sherman MD Active [facility] NIACIN FLUSH FREE 400-100 MG CAPS 1 daily NIACIN-INOSITOL 01536378012 Active Kayla Cooper MD Active DIFLUCAN 150 MG TABS 1 qd FLUCONAZOLE 68025 798880 No Longer Active Kayla Cooper MD Active FLUTICASONE PROPIONATE 50 MCG/ACT SUSP 1 spray each nostril twice daily FLUTICASONE PROPIONATE 61088746777 Active Tesfaye armenta MD Active LOVASTATIN 20 MG TABS Take 1 tablet by mouth daily LOVASTATIN 47398932922 No Longer Active Tesfaye Sherman MD Active MELOXICAM 7.5 MG TABS 1 tablet by mouth daily M ELOXICAM 78576432417 No Longer Active Tesfaye Sherman MD Active GABAPENTIN 300 MG CAPS Take two tablets by mouth every evening GABAPENTIN 74949823664 No Longer Active Edith Burch MD Active TRIMETHOPRIM 100 MG TABS 1/2 qd TRIMETHOPRIM 1284624 3001 Active Kayla Cooper MD Active TIZANIDINE HCL 2 MG TABS take one tablet by mouth every day at bedtime at 9pm TIZANIDINE HCL 95156425297 Active Kayla Cooper MD Active OXYCODONE-ACETAMINOPHEN 5-325 MG TABS Take one tablet by mouth every 6 hours as needed. Max 12 tabs/day as needed OXYCODONE-ACETAMINOP HEN 98960816314 Active Tesfaye Sherman MD Active CYMBALTA 60 MG CPEP Take 1 tablet by mouth daily D ULOXETINE HCL 96143014003 Active Kayla Cooper MD Active CLONAZEPAM 0.5 MG TABS Take one tablet in the morning and 1.5 table t at 7pm CLONAZEPAM 24328248120 Active Kayla Cooper MD Active CETIRIZINE HCL 5 MG TABS Take 1 tablet by mouth daily CETIRIZINE HCL 55506590851 Active Kayla Cooper MD Active BACLOFEN 10 MG TABS Take one tablet by mouth three times a day BACLOFEN 24814621887 Active Kayla Cooper MD Active GABAPENTIN 300 MG CAPS Take two tablets by mouth every evening GABAPENTIN 300 MG CAPS 248287 GABAPENTIN Inactive MELOXICAM 7.5 MG TABS 1 tablet by mouth daily MELOXICAM 7.5 MG TABS 545292 MELOXICAM Inactive LOVASTATIN 20 MG TABS Take 1 tablet by mouth daily 201 02/12/20 LOVASTATIN 20 MG TABS 480001 LOVASTATIN Inactive DIFLUCAN 150 MG TABS 1 qd DIFLUCAN 150 MG T ABS 820334 FLUCONAZOLE Inactive Advance Directives Directive Description Start [...] Panel - Chemistry sodium, serum 138 mmol/L 498-608 8274/10/20 potassium, serum 4.5 mmol/L 3.5-5.2 chloride, serum [...] 0.90 mg/dL 0.00-1.00 cholesterol, serum 237 mg/dL 149-845 1300/10/20 triglyceride, serum, fasting 71 mg/dL 30-200 HDL [...] Panel - Chemistry cholesterol, serum 221 mg/dL 845-595 5026/01/23 triglyceride, serum, fasting 81 mg/dL 30-200 HDL [...] negative Encounters Code Encounter Date Provider Facility CPT-74785 Level 4 Est. Patient 11:02:24 CLOTHES MODEL Tesfaye pearson MD [facility] CPT-76471 Level 3 Est. Patient 20:21:43 CLOTHES MODEL Kayla jameson MD [facility] CPT-11290 Level 3 Est. Patient 13:27:28 CLOTHES MODEL Kayla jameson MD [facility] CPT-72334 Level 4 Est. Patient 15:57:17 CLOTHES MODEL Tesfaye pearson MD [facility] CPT-27764 Level 3 New Patient 13:25:47 CDT Tesfaye kidd MD [facility] CPT-40701 Level 3 New Patient 17:22:21 CDT Kayla angel MD [facility] Procedures Code Procedure Name Date Entry Date Standard Desc ription CPT-33999 Urine Dip (Floor Use Only) 20:21:44 CLOTHES MODEL 201 02/12/11 CPT-25852 UA Dip Auto (Floor Use Only) 10:04:39 CLOTHES MODEL 2 CPT-28470 Urine Dip (Floor Use Only) 13:27:28 CLOTHES MODEL 201 02/12/01 CPT-23476 Bladder Scan 13:27:28 CLOTHES MODEL CPT-51986 Abd single AP View 14:30:51 CLOTHES MODEL CPT-OV Office Visit 10:15:43 CDT CPT-34998 Urine Dip (Floor Use Only) 17:22:21 CDT 201 02/09/02 CPT-68883 Bladder Scan 17:22:21 CDT
--- OUTSIDE RECORDS SUMMARY | 2020-05-05 12:47 | XMS REPORT | Clinical Summary ---
Author Author Talon, Jeri Wood Organization [facility] Address Unknown Phone Unavailable Allergies, Adverse Reactions, Alerts Allergy Name Reaction Description Start Date Severity Status Pr ovider NITROFURANTION Critical Active Tesfaye kidd MD XANAX Critical Active Kayla Shaw on SAVELLFer Critical Active Kayla Shaw on NUVIGIIsrael Critical Active Kayla Shaw on NAPROXLINNAE MEDLEY Critical Active Kayla Edward son BENADRYL [...] medical examination at a health care facility Medication List Medication Instructions Start Date Stop Date Generic Name NDC Status Provider Patient Instruction BACTRIM DS 800-160 MG TAB 1 tab by mouth twice daily 2 TRIMETHOPRIM-SULFAMETHOXAZOLE 94369945491 No Longer Active Tesfaye Sherman MD Active VITAMIN D3 2000 UNIT TABS 1 daily, for vitamin D deficiency CHOLECALCIFEROL 51726919186 Active Tesfaye Sherman MD Activ e PRELIEF 340 (65-50) MG (CA-P) ORAL TABS CALCIUM GLYCEROPHOSPHATE 78734688409 Active Tesfaye Sherman MD Active [facility] NIACIN FLUSH FREE 400-100 MG CAPS 1 daily NIACIN-INOSITOL 60910315854 Active Kayla Cooper MD Active DIFLUCAN 150 MG TABS 1 qd FLUCONAZOLE 31064 398944 No Longer Active Kayla Cooper MD Active FLUTICASONE PROPIONATE 50 MCG/ACT SUSP 1 spray each nostril twice daily FLUTICASONE PROPIONATE 63632367453 Active Tesfaye armenta MD Active LOVASTATIN 20 MG TABS Take 1 tablet by mouth daily LOVASTATIN 51270432105 No Longer Active Tesfaye Sherman MD Active MELOXICAM 7.5 MG TABS 1 tablet by mouth daily Gisela ELOXICAM 57911227080 No Longer Active Tesfaye Sherman MD Active GABAPENTIN 300 MG CAPS Take two tablets by mouth every evening GABAPENTIN 05554611504 No Longer Active Edith Burch MD Active TRIMETHOPRIM 100 MG TABS 1/2 qd TRIMETHOPRIM 9895130 3001 Active Kayla Cooper MD Active TIZANIDINE HCL 2 MG TABS take one tablet by mouth every day at bedtime at 9pm TIZANIDINE HCL 03409121958 Active Kayla Cooper MD Active OXYCODONE-ACETAMINOPHEN 5-325 MG TABS Take one tablet by mouth every 6 hours as needed. Max 12 tabs/day as needed OXYCODONE-ACETAMINOP HEN 64570449456 Active Tesfaye Sherman MD Active CYMBALTA 60 MG CPEP Take 1 tablet by mouth daily D ULOXETINE HCL 35561602223 Active Kayla Cooper MD Active CLONAZEPAM 0.5 MG TABS Take one tablet in the morning and 1.5 table t at 7pm CLONAZEPAM 10485916414 Active Kayla Cooper MD Active CETIRIZINE HCL 5 MG TABS Take 1 tablet by mouth daily CETIRIZINE HCL 24387379658 Active Kayla Cooper MD Active BACLOFEN 10 MG TABS Take one tablet by mouth three times a day BACLOFEN 55682126374 Active Kayla Cooper MD Active GABAPENTIN 300 MG CAPS Take two tablets by mouth every evening GABAPENTIN 300 MG CAPS 555139 GABAPENTIN Inactive MELOXICAM 7.5 MG TABS 1 tablet by mouth daily MELOXICAM 7.5 MG TABS 942587 MELOXICAM Inactive LOVASTATIN 20 MG TABS Take 1 tablet by mouth daily 201 02/12/20 LOVASTATIN 20 MG TABS 293097 LOVASTATIN Inactive DIFLUCAN 150 MG TABS 1 qd DIFLUCAN 150 MG T ABS 179213 FLUCONAZOLE Inactive BACTRIM DS 800-160 MG TAB 1 tab by mouth twice daily 2 BACTRIM DS 800-160 MG TAB TRIMETHOPRIM-SULFAMETHOXAZOLE Inac tive Advance Directives Directive Description [...] Panel - Chemistry sodium, serum 138 mmol/L 462-248 5867/10/20 potassium, serum 4.5 mmol/L 3.5-5.2 chloride, serum [...] 0.90 mg/dL 0.00-1.00 cholesterol, serum 237 mg/dL 849-974 2732/10/20 triglyceride, serum, fasting 71 mg/dL 30-200 HDL [...] Panel - Chemistry cholesterol, serum 221 mg/dL 001-126 8355/01/23 triglyceride, serum, fasting 81 mg/dL 30-200 HDL [...] negative Encounters Code Encounter Date Provider Facility CPT-06791 Level 3 Est. Patient 16:36:07 PHOTOLITHOGRAPHER Kayla jameson MD [facility] CPT-36375 Level 4 Est. Patient 16:00:14 PHOTOLITHOGRAPHER Tesfaye pearson MD [facility] CPT-28288 Level 4 Est. Patient 11:02:24 PHOTOLITHOGRAPHER Tesfaye pearson MD [facility] CPT-94033 Level 3 Est. Patient 20:21:43 PHOTOLITHOGRAPHER Kayla jameson MD [facility] CPT-85902 Level 3 Est. Patient 13:27:28 PHOTOLITHOGRAPHER Kayla jameson MD [facility] CPT-73647 Level 4 Est. Patient 15:57:17 PHOTOLITHOGRAPHER Tesfaye pearson MD [facility] CPT-20267 Level 3 New Patient 13:25:47 CDT Tesfaye kidd MD [facility] CPT-88782 Level 3 New Patient 17:22:21 CDT J John angel MD [facility] Procedures Code Procedure Name Date Entry Date Standard Desc ription CPT-J3420 Vitamin B12 1000mcg (Cyanocobalamin) 09:49:14 CDT CPT-31274 Abx/Therapy Injection 09:49:14 CDT CPT-J3420 Vitamin B12 1000mcg (Cyanocobalamin) 09:10:30 PHOTOLITHOGRAPHER CPT-68832 Abx/Therapy Injection 09:10:30 PHOTOLITHOGRAPHER CPT-J3420 Vitamin B12 1000mcg (Cyanocobalamin) 09:11:07 PHOTOLITHOGRAPHER CPT-05496 Abx/Therapy Injection 09:11:07 PHOTOLITHOGRAPHER CPT-J3420 Vitamin B12 1000mcg (Cyanocobalamin) 09:57:03 PHOTOLITHOGRAPHER CPT-70425 Abx/Therapy Injection 09:57:03 PHOTOLITHOGRAPHER CPT-J3420 Vitamin B12 1000mcg (Cyanocobalamin) 09:23:21 PHOTOLITHOGRAPHER CPT-18353 Abx/Therapy Injection 09:23:21 PHOTOLITHOGRAPHER CPT-96324 Urine Dip (Floor Use Only) 20:21:44 PHOTOLITHOGRAPHER 201 02/12/11 CPT-24474 UA Dip Auto (Floor Use Only) 10:04:39 PHOTOLITHOGRAPHER 2 CPT-38046 Urine Dip (Floor Use Only) 13:27:28 PHOTOLITHOGRAPHER 201 02/12/01 CPT-01239 Bladder Scan 13:27:28 PHOTOLITHOGRAPHER CPT-25149 Abd single AP View 14:30:51 PHOTOLITHOGRAPHER CPT-OV Office Visit 10:15:43 CDT CPT-22438 Urine Dip (Floor Use Only) 17:22:21 CDT 201 02/09/02 CPT-82986 Bladder Scan 17:22:21 CDT
--- OUTSIDE RECORDS SUMMARY | 2020-05-05 12:47 | XMS REPORT | Clinical Summary ---
Author Author Talon, Jeri Wood Organization [facility] Address Unknown Phone Unavailable Allergies, Adverse [...] Active Kayla richmond MD Chronic interstitial cystitis Medication List Medication Instructions Start Date Stop Date Generic Name NDC Status Provider Patient Instruction BACTRIM DS 800-160 MG TAB 1 tab by mouth twice daily 2 TRIMETHOPRIM-SULFAMETHOXAZOLE 13661468342 No Longer Active Tesfaye Sherman MD Active VITAMIN D3 2000 UNIT TABS 1 daily, for vitamin D deficiency CHOLECALCIFEROL 07150381447 Active Tesfaye Sherman MD Activ e PRELIEF 340 (65-50) MG (CA-P) ORAL TABS CALCIUM GLYCEROPHOSPHATE 76628227914 Active Tesfaye Sherman MD Active [facility] NIACIN FLUSH FREE 400-100 MG CAPS 1 daily NIACIN-INOSITOL 67379395635 Active Kayla Cooper MD Active DIFLUCAN 150 MG TABS 1 qd FLUCONAZOLE 63805 096182 No Longer Active Kayla Cooper MD Active FLUTICASONE PROPIONATE 50 MCG/ACT SUSP 1 spray each nostril twice daily FLUTICASONE PROPIONATE 73922971886 Active Tesfaye armenta MD Active LOVASTATIN 20 MG TABS Take 1 tablet by mouth daily LOVASTATIN 74747699914 No Longer Active Tesfaye Sherman MD Active MELOXICAM 7.5 MG TABS 1 tablet by mouth daily Gisela ELOXICAM 64691142556 No Longer Active Tesfaye Sherman MD Active GABAPENTIN 300 MG CAPS Take two tablets by mouth every evening GABAPENTIN 76684120613 No Longer Active Edith Burch MD Active TRIMETHOPRIM 100 MG TABS 1/2 qd TRIMETHOPRIM 3533123 3001 Active Kayla Cooper MD Active TIZANIDINE HCL 2 MG TABS take one tablet by mouth every day at bedtime at 9pm TIZANIDINE HCL 96832104044 Active Kayla Cooper MD Active OXYCODONE-ACETAMINOPHEN 5-325 MG TABS Take one tablet by mouth every 6 hours as needed. Max 12 tabs/day as needed OXYCODONE-ACETAMINOP HEN 34431954456 Active Tesfaye Sherman MD Active CYMBALTA 60 MG CPEP Take 1 tablet by mouth daily D ULOXETINE HCL 40358494291 Active Kayla Cooper MD Active CLONAZEPAM 0.5 MG TABS Take one tablet in the morning and 1.5 table t at 7pm CLONAZEPAM 07708136655 Active Kayla Cooper MD Active CETIRIZINE HCL 5 MG TABS Take 1 tablet by mouth daily CETIRIZINE HCL 48650172049 Active Kayla Cooper MD Active BACLOFEN 10 MG TABS Take one tablet by mouth three times a day BACLOFEN 46631250035 Active Kayla Cooper MD Active GABAPENTIN 300 MG CAPS Take two tablets by mouth every evening GABAPENTIN 300 MG CAPS 329156 GABAPENTIN Inactive MELOXICAM 7.5 MG TABS 1 tablet by mouth daily MELOXICAM 7.5 MG TABS 194639 MELOXICAM Inactive LOVASTATIN 20 MG TABS Take 1 tablet by mouth daily 201 02/12/20 LOVASTATIN 20 MG TABS 487703 LOVASTATIN Inactive DIFLUCAN 150 MG TABS 1 qd DIFLUCAN 150 MG T ABS 246105 FLUCONAZOLE Inactive BACTRIM DS 800-160 MG TAB [...] Panel - Chemistry sodium, serum 138 mmol/L 879-635 9853/10/20 potassium, serum 4.5 mmol/L 3.5-5.2 chloride, serum [...] 0.90 mg/dL 0.00-1.00 cholesterol, serum 237 mg/dL 310-767 4191/10/20 triglyceride, serum, fasting 71 mg/dL 30-200 HDL [...] Panel - Chemistry cholesterol, serum 221 mg/dL 061-128 7199/01/23 triglyceride, serum, fasting 81 mg/dL 30-200 HDL [...] negative Encounters Code Encounter Date Provider Facility CPT-34775 Level 3 Est. Patient 16:36:07 SILVERWARE BUFFER Kayla jameson MD [facility] CPT-08531 Level 4 Est. Patient 16:00:14 SILVERWARE BUFFER Tesfaye pearson MD [facility] CPT-66032 Level 4 Est. Patient 11:02:24 SILVERWARE BUFFER Tesfaye pearson MD [facility] CPT-88641 Level 3 Est. Patient 20:21:43 SILVERWARE BUFFER Kayla jameson MD [facility] CPT-23790 Level 3 Est. Patient 13:27:28 SILVERWARE BUFFER Kayla jameson MD [facility] CPT-17991 Level 4 Est. Patient 15:57:17 SILVERWARE BUFFER Tesfaye pearson MD [facility] CPT-70529 Level 3 New Patient 13:25:47 CDT Tesfaye kidd MD [facility] CPT-37004 Level 3 New Patient 17:22:21 CDT Kayla angel MD [facility] Procedures Code Procedure Name Date Entry Date Standard Desc ription CPT-J3420 Vitamin B12 1000mcg (Cyanocobalamin) 09:57:03 SILVERWARE BUFFER CPT-84121 Abx/Therapy Injection 09:57:03 SILVERWARE BUFFER CPT-J3420 Vitamin B12 1000mcg (Cyanocobalamin) 09:23:21 SILVERWARE BUFFER CPT-29148 Abx/Therapy Injection 09:23:21 SILVERWARE BUFFER CPT-79844 Urine Dip (Floor Use Only) 20:21:44 SILVERWARE BUFFER 201 02/12/11 CPT-42985 UA Dip Auto (Floor Use Only) 10:04:39 SILVERWARE BUFFER 2 CPT-99451 Urine Dip (Floor Use Only) 13:27:28 SILVERWARE BUFFER 201 02/12/01 CPT-35544 Bladder Scan 13:27:28 SILVERWARE BUFFER CPT-85452 Abd single AP View 14:30:51 SILVERWARE BUFFER CPT-OV Office Visit 10:15:43 CDT CPT-40072 Urine Dip (Floor Use Only) 17:22:21 CDT 201 02/09/02 CPT-37295 Bladder Scan 17:22:21 CDT
--- OUTSIDE RECORDS SUMMARY | 2020-05-05 12:47 | XMS REPORT | Clinical Summary ---
Author Author Talon, Jeri Wood Organization [facility] Address Unknown Phone Unavailable Allergies, Adverse [...] tab by mouth twice daily 2 TRIMETHOPRIM-SULFAMETHOXAZOLE 12599243813 No Longer Active Tesfaye Sherman MD Active VITAMIN D3 2000 UNIT TABS 1 daily, for vitamin D deficiency CHOLECALCIFEROL 24456643225 Active Tesfaye Sherman MD Activ e PRELIEF 340 (65-50) MG (CA-P) ORAL TABS CALCIUM GLYCEROPHOSPHATE 50486661411 Active Tesfaye Sherman MD Active [facility] NIACIN FLUSH FREE 400-100 MG CAPS 1 daily NIACIN-INOSITOL 78797569617 Active Kayla Cooper MD Active DIFLUCAN 150 MG TABS 1 qd FLUCONAZOLE 12343 843920 No Longer Active Kayla Cooper MD Active FLUTICASONE PROPIONATE 50 MCG/ACT SUSP 1 spray each nostril twice daily FLUTICASONE PROPIONATE 41650198252 Active Tesfaye armenta MD Active LOVASTATIN 20 MG TABS Take 1 tablet by mouth daily LOVASTATIN 33505372681 No Longer Active Tesfaye Sherman MD Active MELOXICAM 7.5 MG TABS 1 tablet by mouth daily Gisela ELOXICAM 49593599572 No Longer Active Tesfaye Sherman MD Active GABAPENTIN 300 MG CAPS Take two tablets by mouth every evening GABAPENTIN 49028737318 No Longer Active Edith Burch MD Active TRIMETHOPRIM 100 MG TABS 1/2 qd TRIMETHOPRIM 7372076 3001 Active Kayla Cooper MD Active TIZANIDINE HCL 2 MG TABS take one tablet by mouth every day at bedtime at 9pm TIZANIDINE HCL 57799667177 Active Kayla Cooper MD Active OXYCODONE-ACETAMINOPHEN 5-325 MG TABS Take one tablet by mouth every 6 hours as needed. Max 12 tabs/day as needed OXYCODONE-ACETAMINOP HEN 63957177996 Active Tesfaye Sherman MD Active CYMBALTA 60 MG CPEP Take 1 tablet by mouth daily D ULOXETINE HCL 12362229960 Active Kayla Cooper MD Active CLONAZEPAM 0.5 MG TABS Take one tablet in the morning and 1.5 table t at 7pm CLONAZEPAM 08079488707 Active Kayla Cooper MD Active CETIRIZINE HCL 5 MG TABS Take 1 tablet by mouth daily CETIRIZINE HCL 97647156555 Active Kayla Cooper MD Active BACLOFEN 10 MG TABS Take one tablet by mouth three times a day BACLOFEN 89320894771 Active Kayla Cooper MD Active GABAPENTIN 300 MG CAPS Take two tablets by mouth every evening GABAPENTIN 300 MG CAPS 817740 GABAPENTIN Inactive MELOXICAM 7.5 MG TABS 1 tablet by mouth daily MELOXICAM 7.5 MG TABS 496165 MELOXICAM Inactive LOVASTATIN 20 MG TABS Take 1 tablet by mouth daily 201 02/12/20 LOVASTATIN 20 MG TABS 665297 LOVASTATIN Inactive DIFLUCAN 150 MG TABS 1 qd DIFLUCAN 150 MG T ABS 876365 FLUCONAZOLE Inactive BACTRIM DS 800-160 MG TAB [...] Panel - Chemistry sodium, serum 138 mmol/L 992-823 0061/10/20 potassium, serum 4.5 mmol/L 3.5-5.2 chloride, serum [...] 0.90 mg/dL 0.00-1.00 cholesterol, serum 237 mg/dL 427-187 6954/10/20 triglyceride, serum, fasting 71 mg/dL 30-200 HDL [...] Panel - Chemistry cholesterol, serum 221 mg/dL 982-738 4227/01/23 triglyceride, serum, fasting 81 mg/dL 30-200 HDL [...] negative Encounters Code Encounter Date Provider Facility CPT-96556 Level 3 Est. Patient 16:36:07 SHOTWELD OPERATOR Kayla jameson MD [facility] CPT-22158 Level 4 Est. Patient 16:00:14 SHOTWELD OPERATOR Tesfaye pearson MD [facility] CPT-89828 Level 4 Est. Patient 11:02:24 SHOTWELD OPERATOR Tesfaye pearson MD [facility] CPT-24135 Level 3 Est. Patient 20:21:43 SHOTWELD OPERATOR Kayla jameson MD [facility] CPT-18925 Level 3 Est. Patient 13:27:28 SHOTWELD OPERATOR Kayla jameson MD [facility] CPT-19585 Level 4 Est. Patient 15:57:17 SHOTWELD OPERATOR Tesfaye pearson MD [facility] CPT-65821 Level 3 New Patient 13:25:47 CDT Tesfaye kidd MD [facility] CPT-52504 Level 3 New Patient 17:22:21 CDT Kayla angel MD [facility] Procedures Code Procedure Name Date Entry Date Standard Desc ription CPT-J3420 Vitamin B12 1000mcg (Cyanocobalamin) 09:10:30 SHOTWELD OPERATOR CPT-84382 Abx/Therapy Injection 09:10:30 SHOTWELD OPERATOR CPT-J3420 Vitamin B12 1000mcg (Cyanocobalamin) 09:11:07 SHOTWELD OPERATOR CPT-09941 Abx/Therapy Injection 09:11:07 SHOTWELD OPERATOR CPT-J3420 Vitamin B12 1000mcg (Cyanocobalamin) 09:57:03 SHOTWELD OPERATOR CPT-57715 Abx/Therapy Injection 09:57:03 SHOTWELD OPERATOR CPT-J3420 Vitamin B12 1000mcg (Cyanocobalamin) 09:23:21 SHOTWELD OPERATOR CPT-55794 Abx/Therapy Injection 09:23:21 SHOTWELD OPERATOR CPT-38536 Urine Dip (Floor Use Only) 20:21:44 SHOTWELD OPERATOR 201 02/12/11 CPT-02706 UA Dip Auto (Floor Use Only) 10:04:39 SHOTWELD OPERATOR 2 CPT-19641 Urine Dip (Floor Use Only) 13:27:28 SHOTWELD OPERATOR 201 02/12/01 CPT-10146 Bladder Scan 13:27:28 SHOTWELD OPERATOR CPT-79199 Abd single AP View 14:30:51 SHOTWELD OPERATOR CPT-OV Office Visit 10:15:43 CDT CPT-25659 Urine Dip (Floor Use Only) 17:22:21 CDT 201 02/09/02 CPT-11835 Bladder Scan 17:22:21 CDT
--- OUTSIDE RECORDS SUMMARY | 2020-05-05 12:48 | XMS REPORT | Clinical Summary ---
Author Author Talon, Jeri Wood Organization [facility] Address Unknown Phone Unavailable Allergies, Adverse [...] tab by mouth twice daily 2 TRIMETHOPRIM-SULFAMETHOXAZOLE 43507789721 No Longer Active Tesfaye Sherman MD Active VITAMIN D3 2000 UNIT TABS 1 daily, for vitamin D deficiency CHOLECALCIFEROL 90071397974 Active Tesfaye Sherman MD Activ e PRELIEF 340 (65-50) MG (CA-P) ORAL TABS CALCIUM GLYCEROPHOSPHATE 24006609089 Active Tesfaye Sherman MD Active [facility] NIACIN FLUSH FREE 400-100 MG CAPS 1 daily NIACIN-INOSITOL 69432249634 Active aKyla Cooper MD Active DIFLUCAN 150 MG TABS 1 qd FLUCONAZOLE 67707 916397 No Longer Active Kayla Cooper MD Active FLUTICASONE PROPIONATE 50 MCG/ACT SUSP 1 spray each nostril twice daily FLUTICASONE PROPIONATE 47923577630 Active Tesfaye armenta MD Active LOVASTATIN 20 MG TABS Take 1 tablet by mouth daily LOVASTATIN 49933635844 No Longer Active Tesfaye Sherman MD Active MELOXICAM 7.5 MG TABS 1 tablet by mouth daily Gisela ELOXICAM 99483045278 No Longer Active Tesfaye Sherman MD Active GABAPENTIN 300 MG CAPS Take two tablets by mouth every evening GABAPENTIN 89672266459 No Longer Active Edith Burch MD Active TRIMETHOPRIM 100 MG TABS 1/2 qd TRIMETHOPRIM 1496730 3001 Active Kayla Cooper MD Active TIZANIDINE HCL 2 MG TABS take one tablet by mouth every day at bedtime at 9pm TIZANIDINE HCL 62890176652 Active Kayla Cooper MD Active OXYCODONE-ACETAMINOPHEN 5-325 MG TABS Take one tablet by mouth every 6 hours as needed. Max 12 tabs/day as needed OXYCODONE-ACETAMINOP HEN 87300747056 Active Tesfaye Sherman MD Active CYMBALTA 60 MG CPEP Take 1 tablet by mouth daily D ULOXETINE HCL 36188079459 Active Kayla Cooper MD Active CLONAZEPAM 0.5 MG TABS Take one tablet in the morning and 1.5 table t at 7pm CLONAZEPAM 00941945482 Active Kayla Cooper MD Active CETIRIZINE HCL 5 MG TABS Take 1 tablet by mouth daily CETIRIZINE HCL 19616346206 Active Kayla Cooper MD Active BACLOFEN 10 MG TABS Take one tablet by mouth three times a day BACLOFEN 20120841258 Active Kayla Cooper MD Active GABAPENTIN 300 MG CAPS Take two tablets by mouth every evening GABAPENTIN 300 MG CAPS 180063 GABAPENTIN Inactive MELOXICAM 7.5 MG TABS 1 tablet by mouth daily MELOXICAM 7.5 MG TABS 879743 MELOXICAM Inactive LOVASTATIN 20 MG TABS Take 1 tablet by mouth daily 201 02/12/20 LOVASTATIN 20 MG TABS 012290 LOVASTATIN Inactive DIFLUCAN 150 MG TABS 1 qd DIFLUCAN 150 MG T ABS 520841 FLUCONAZOLE Inactive BACTRIM DS 800-160 MG TAB [...] Panel - Chemistry sodium, serum 138 mmol/L 822-247 2899/10/20 urea nitrogen, blood 6 mg/dL 7-18 creatinine, serum 0.70 mg/dL 0.60-1.30 alanine aminotransferase (SGPT), serum 15 U/L 12-78 aspartate aminotransferase (SGOT), serum 17 U/L 15-37 alkaline phosphatase, serum 90 U/L 50-136 calcium, serum 9.8 mg/dL 8.5-10.1 bilirubin, serum, total 0.90 mg/dL 0.00-1.00 cholesterol, serum 237 mg/dL 130-340 0761/10/20 triglyceride, serum, fasting 71 mg/dL 30-200 HDL cholesterol, serum 54 mg/dL 32-96 LDL cholesterol, serum 169 mg/dL 0-130 potassium, serum 4.5 mmol/L 3.5-5.2 chloride, serum 98 mmol/L 98-107 carbon dioxide, venous blood 28.2 mmol/L 21.0-32 .0 blood glucose 95 mg/dL 65-110 Lab Report: Comp. Metabolic Panel, CBC, Lipid [...] Panel - Chemistry cholesterol, serum 221 mg/dL 737-765 6997/01/23 triglyceride, serum, fasting 81 mg/dL 30-200 HDL [...] Urinalysis ketones, urine, by test strip negative urine color yellow appearance, urine clear leukocyte esterase, urine, by dipstick negative nitrite, urine, semiquantitative negative urobilinogen, urine, semiquantitative (dipstick) 0.2 protein, urine, semiquantitative (dipstick) negative bilirubin, urine negative glucose, urine, semiquantitative negative pH, urine, semiquantitative 7 specific gravity, urine 1.000 urinalysis, routine Clean Catch Office Visit: Frequent UTI - Chemistry RBC, [...] negative Encounters Code Encounter Date Provider Facility CPT-68065 Level 3 Est. Patient 16:36:07 PURCHASING ASSISTANT Kayla jameson MD [facility] CPT-62928 Level 4 Est. Patient 16:00:14 PURCHASING ASSISTANT Tesfaye pearson MD [facility] CPT-78678 Level 4 Est. Patient 11:02:24 PURCHASING ASSISTANT Tesfaye pearson MD [facility] CPT-79718 Level 3 Est. Patient 20:21:43 PURCHASING ASSISTANT Kayla jameson MD [facility] CPT-22358 Level 3 Est. Patient 13:27:28 PURCHASING ASSISTANT Kayal jameson MD [facility] CPT-77611 Level 4 Est. Patient 15:57:17 PURCHASING ASSISTANT Tesfaye pearson MD [facility] CPT-71702 Level 3 New Patient 13:25:47 CDT Tesfaye kidd MD [facility] CPT-88137 Level 3 New Patient 17:22:21 CDT Kayla angel MD [facility] Procedures Code Procedure Name Date Entry Date Standard Desc ription CPT-J3420 Vitamin B12 1000mcg (Cyanocobalamin) 09:10:30 PURCHASING ASSISTANT CPT-84050 Abx/Therapy Injection 09:10:30 PURCHASING ASSISTANT CPT-J3420 Vitamin B12 1000mcg (Cyanocobalamin) 09:11:07 PURCHASING ASSISTANT CPT-16858 Abx/Therapy Injection 09:11:07 PURCHASING ASSISTANT CPT-J3420 Vitamin B12 1000mcg (Cyanocobalamin) 09:57:03 PURCHASING ASSISTANT CPT-97094 Abx/Therapy Injection 09:57:03 PURCHASING ASSISTANT CPT-J3420 Vitamin B12 1000mcg (Cyanocobalamin) 09:23:21 PURCHASING ASSISTANT CPT-86534 Abx/Therapy Injection 09:23:21 PURCHASING ASSISTANT CPT-21520 Urine Dip (Floor Use Only) 20:21:44 PURCHASING ASSISTANT 201 02/12/11 CPT-94587 UA Dip Auto (Floor Use Only) 10:04:39 PURCHASING ASSISTANT 2 CPT-74254 Urine Dip (Floor Use Only) 13:27:28 PURCHASING ASSISTANT 201 02/12/01 CPT-88772 Bladder Scan 13:27:28 PURCHASING ASSISTANT CPT-12541 Abd single AP View 14:30:51 PURCHASING ASSISTANT CPT-OV Office Visit 10:15:43 CDT CPT-08593 Urine Dip (Floor Use Only) 17:22:21 CDT 201 02/09/02 CPT-06775 Bladder Scan 17:22:21 CDT
--- OUTSIDE RECORDS SUMMARY | 2020-05-05 12:48 | XMS REPORT | Clinical Summary ---
[...] tab by mouth twice daily 2 TRIMETHOPRIM-SULFAMETHOXAZOLE 89152071298 No Longer Active Tesfaye Sherman MD Active VITAMIN D3 2000 UNIT TABS 1 daily, for vitamin D deficiency CHOLECALCIFEROL 09661526537 Active Tesfaye Sherman MD Activ e PRELIEF 340 (65-50) MG (CA-P) ORAL TABS CALCIUM GLYCEROPHOSPHATE 56170820649 Active Tesfaye Sherman MD Active [facility] NIACIN FLUSH FREE 400-100 MG CAPS 1 daily NIACIN-INOSITOL 13460750007 Active Kayla Cooper MD Active DIFLUCAN 150 MG TABS 1 qd FLUCONAZOLE 07709 639207 No Longer Active Kayla Cooper MD Active FLUTICASONE PROPIONATE 50 MCG/ACT SUSP 1 spray each nostril twice daily FLUTICASONE PROPIONATE 49883832656 Active Tesfaye armenta MD Active LOVASTATIN 20 MG TABS Take 1 tablet by mouth daily LOVASTATIN 89203457007 No Longer Active Tesfaye Sherman MD Active MELOXICAM 7.5 MG TABS 1 tablet by mouth daily Gisela ELOXICAM 61799351367 No Longer Active Tesfaye Sherman MD Active GABAPENTIN 300 MG CAPS Take two tablets by mouth every evening GABAPENTIN 55508461520 No Longer Active Edith Burch MD Active TRIMETHOPRIM 100 MG TABS 1/2 qd TRIMETHOPRIM 5865107 3001 Active Kayla Cooper MD Active TIZANIDINE HCL 2 MG TABS take one tablet by mouth every day at bedtime at 9pm TIZANIDINE HCL 66531983422 Active Kayla Cooper MD Active OXYCODONE-ACETAMINOPHEN 5-325 MG TABS Take one tablet by mouth every 6 hours as needed. Max 12 tabs/day as needed OXYCODONE-ACETAMINOP HEN 87385114919 Active Tesfaye Sherman MD Active CYMBALTA 60 MG CPEP Take 1 tablet by mouth daily D ULOXETINE HCL 36736199141 Active Kayla Cooper MD Active CLONAZEPAM 0.5 MG TABS Take one tablet in the morning and 1.5 table t at 7pm CLONAZEPAM 85585885015 Active Kayla Cooper MD Active CETIRIZINE HCL 5 MG TABS Take 1 tablet by mouth daily CETIRIZINE HCL 96725311267 Active Kayla Cooper MD Active BACLOFEN 10 MG TABS Take one tablet by mouth three times a day BACLOFEN 86402057870 Active Kayla Cooper MD Active GABAPENTIN 300 MG CAPS Take two tablets by mouth every evening GABAPENTIN 300 MG CAPS 284586 GABAPENTIN Inactive MELOXICAM 7.5 MG TABS 1 tablet by mouth daily MELOXICAM 7.5 MG TABS 602359 MELOXICAM Inactive LOVASTATIN 20 MG TABS Take 1 tablet by mouth daily 201 02/12/20 LOVASTATIN 20 MG TABS 791252 LOVASTATIN Inactive DIFLUCAN 150 MG TABS 1 qd DIFLUCAN 150 MG T ABS 018270 FLUCONAZOLE Inactive BACTRIM DS 800-160 MG TAB [...] Panel - Chemistry sodium, serum 138 mmol/L 404-727 8645/10/20 potassium, serum 4.5 mmol/L 3.5-5.2 chloride, serum [...] 0.90 mg/dL 0.00-1.00 cholesterol, serum 237 mg/dL 811-695 0280/10/20 triglyceride, serum, fasting 71 mg/dL 30-200 HDL cholesterol, serum 54 mg/dL 32-96 LDL cholesterol, serum 169 mg/dL 0-130 Lab Report: Comp. Metabolic Panel, CBC, Lipid Panel - Hematology erythrocyte (RBC) count 4.60 10^6/MM^3 10*6/mm3 4.04-5.4 8 hemoglobin, blood 15.6 g/dL 12.0-16.0 hematocrit, blood 45.5 % 36.0-46.0 mean corpuscular volume, RBC 99 fL 80-97 mean corpuscular hemoglobin, RBC 34.0 pg 27. 0-31.2 mean corpuscular hemoglobin concentration, RBC 34.4 G/DL % 31.8-35.4 red blood cell distribution width 12.3 % 11 .6-14.8 platelet count 390 10^3/MM^3 10*3/mm3 422-845 9823/10/20 leukocyte count, blood 7.6 10^3/MM^3 10*3/mm3 4.6-10.2 Lab Report: Lipid Panel - Chemistry cholesterol, serum 221 mg/dL 757-124 7709/01/23 triglyceride, serum, fasting 81 mg/dL 30-200 HDL cholesterol, serum 55 mg/dL 32-96 LDL cholesterol, serum 150 mg/dL 0-130 Lab Report: UADIP W/MICRO, AUTO - Chemis try protein, total urine random Negative mg/dL Negative protein, total urine random Negative mg/dL Negative RBC, urine, dipstick Trace Negative RBC, urine, dipstick Negative Negative Lab [...] 1.010 1.000-1.030 pH, urine, semiquantitative 6.5 5.0-8.5 glucose, urine, semiquantitative Negative Neg ative [...] mg/dL Office Visit: Frequent UTI - Urinalysis urine color yellow ketones, urine, by test strip negative bilirubin, urine negative glucose, urine, semiquantitative negative pH, urine, semiquantitative 5 specific gravity, urine 1.000 urinalysis, routine Clean Catch protein, urine, semiquantitative (dipstick) negative urobilinogen, urine, semiquantitative (dipstick) 0.2 nitrite, urine, semiquantitative negative leukocyte esterase, urine, by dipstick negative appearance, urine clear Office Visit: UTI - Chemistry RBC, urine, [...] negative Encounters Code Encounter Date Provider Facility CPT-66866 Level 3 Est. Patient 16:36:07 PARKS AND RECREATION WORKER Kayla jameson MD [facility] CPT-50565 Level 4 Est. Patient 16:00:14 PARKS AND RECREATION WORKER Tesfaye pearson MD [facility] CPT-84718 Level 4 Est. Patient 11:02:24 PARKS AND RECREATION WORKER Tesfaye pearson MD [facility] CPT-68934 Level 3 Est. Patient 20:21:43 PARKS AND RECREATION WORKER Kayla jameson MD [facility] CPT-40293 Level 3 Est. Patient 13:27:28 PARKS AND RECREATION WORKER Kayla jameson MD [facility] CPT-35375 Level 4 Est. Patient 15:57:17 PARKS AND RECREATION WORKER Tesfaye pearson MD [facility] [address] CPT-33513 Level 3 New Patient 13:25:47 CDT Tesfaye kidd MD [facility] CPT-57162 Level 3 New Patient 17:22:21 CDT Kayla angel MD [facility] Procedures Code Procedure Name Date Entry Date Standard Desc ription CPT-J3420 Vitamin B12 1000mcg (Cyanocobalamin) 09:57:03 PARKS AND RECREATION WORKER CPT-33702 Abx/Therapy Injection 09:57:03 PARKS AND RECREATION WORKER CPT-J3420 Vitamin B12 1000mcg (Cyanocobalamin) 09:23:21 PARKS AND RECREATION WORKER CPT-60536 Abx/Therapy Injection 09:23:21 PARKS AND RECREATION WORKER CPT-68337 Urine Dip (Floor Use Only) 20:21:44 PARKS AND RECREATION WORKER 201 02/12/11 CPT-88026 UA Dip Auto (Floor Use Only) 10:04:39 PARKS AND RECREATION WORKER 2 CPT-80250 Urine Dip (Floor Use Only) 13:27:28 PARKS AND RECREATION WORKER 201 02/12/01 CPT-74901 Bladder Scan 13:27:28 PARKS AND RECREATION WORKER CPT-15879 Abd single AP View 14:30:51 PARKS AND RECREATION WORKER CPT-OV Office Visit 10:15:43 CDT CPT-14929 Urine Dip (Floor Use Only) 17:22:21 CDT 201 02/09/02 CPT-95925 Bladder Scan 17:22:21 CDT
--- OUTSIDE RECORDS SUMMARY | 2020-05-05 12:48 | XMS REPORT | Clinical Summary ---
Author Author Talon, Jeri Wood Organization [facility] Address Unknown Phone Unavailable Allergies, Adverse Reactions, Alerts Allergy Name Reaction Description Start Date Severity Status Pr ovider NITROFURANTION Critical Active Tesfaye kidd MD XANAX Critical Active Kayla Shaw on SAVELLeFr Critical Active Kayla Shaw on NUVIGIIsrael Critical [...] tab by mouth twice daily 2 TRIMETHOPRIM-SULFAMETHOXAZOLE 90399988421 No Longer Active Tesfaye Sherman MD Active VITAMIN D3 2000 UNIT TABS 1 daily, for vitamin D deficiency CHOLECALCIFEROL 86126725120 Active Tesfaye Sherman MD Activ e PRELIEF 340 (65-50) MG (CA-P) ORAL TABS CALCIUM GLYCEROPHOSPHATE 43032548865 Active Tesfaye Sherman MD Active [facility] NIACIN FLUSH FREE 400-100 MG CAPS 1 daily NIACIN-INOSITOL 24678266673 Active Kayla Cooper MD Active DIFLUCAN 150 MG TABS 1 qd FLUCONAZOLE 15042 849914 No Longer Active Kayla Cooper MD Active FLUTICASONE PROPIONATE 50 MCG/ACT SUSP 1 spray each nostril twice daily FLUTICASONE PROPIONATE 65885994578 Active Tesfaye armenta MD Active LOVASTATIN 20 MG TABS Take 1 tablet by mouth daily LOVASTATIN 59813837857 No Longer Active Tesfaye Sherman MD Active MELOXICAM 7.5 MG TABS 1 tablet by mouth daily Gisela ELOXICAM 83313039992 No Longer Active Tesfaye Sherman MD Active GABAPENTIN 300 MG CAPS Take two tablets by mouth every evening GABAPENTIN 74469227963 No Longer Active Edith Burch MD Active TRIMETHOPRIM 100 MG TABS 1/2 qd TRIMETHOPRIM 7562708 3001 Active Kayla Cooper MD Active TIZANIDINE HCL 2 MG TABS take one tablet by mouth every day at bedtime at 9pm TIZANIDINE HCL 33045803812 Active Kayla Cooper MD Active OXYCODONE-ACETAMINOPHEN 5-325 MG TABS Take one tablet by mouth every 6 hours as needed. Max 12 tabs/day as needed OXYCODONE-ACETAMINOP HEN 82254904565 Active Tesfaye Sherman MD Active CYMBALTA 60 MG CPEP Take 1 tablet by mouth daily D ULOXETINE HCL 94449248193 Active Kayla Cooper MD Active CLONAZEPAM 0.5 MG TABS Take one tablet in the morning and 1.5 table t at 7pm CLONAZEPAM 99273073739 Active Kayla Cooper MD Active CETIRIZINE HCL 5 MG TABS Take 1 tablet by mouth daily CETIRIZINE HCL 49357025334 Active Kayla Cooper MD Active BACLOFEN 10 MG TABS Take one tablet by mouth three times a day BACLOFEN 40439962971 Active Kayla Cooper MD Active GABAPENTIN 300 MG CAPS Take two tablets by mouth every evening GABAPENTIN 300 MG CAPS 997965 GABAPENTIN Inactive MELOXICAM 7.5 MG TABS 1 tablet by mouth daily MELOXICAM 7.5 MG TABS 586378 MELOXICAM Inactive LOVASTATIN 20 MG TABS Take 1 tablet by mouth daily 201 02/12/20 LOVASTATIN 20 MG TABS 635686 LOVASTATIN Inactive DIFLUCAN 150 MG TABS 1 qd DIFLUCAN 150 MG T ABS 046716 FLUCONAZOLE Inactive BACTRIM DS 800-160 MG TAB [...] Panel - Chemistry sodium, serum 138 mmol/L 024-374 0255/10/20 potassium, serum 4.5 mmol/L 3.5-5.2 chloride, serum [...] 0.90 mg/dL 0.00-1.00 cholesterol, serum 237 mg/dL 736-100 6670/10/20 triglyceride, serum, fasting 71 mg/dL 30-200 HDL [...] Panel - Chemistry cholesterol, serum 221 mg/dL 422-283 3609/01/23 triglyceride, serum, fasting 81 mg/dL 30-200 HDL [...] gravity, urine 1.000 urinalysis, routine Clean Catch urobilinogen, urine, semiquantitative (dipstick) 0.2 nitrite, urine, semiquantitative negative leukocyte esterase, urine, by dipstick negative appearance, urine clear urine color yellow protein, urine, semiquantitative (dipstick) negative Office Visit: [...] negative Encounters Code Encounter Date Provider Facility CPT-94100 Level 3 Est. Patient 16:36:07 COPYHOLDER Kayla jameson MD [facility] CPT-43371 Level 4 Est. Patient 16:00:14 COPYHOLDER Tesfaye pearson MD [facility] CPT-96861 Level 4 Est. Patient 11:02:24 COPYHOLDER Tesfaye pearson MD [facility] CPT-82949 Level 3 Est. Patient 20:21:43 COPYHOLDER Kayla jameson MD [facility] CPT-84585 Level 3 Est. Patient 13:27:28 COPYHOLDER Kayla jameson MD [facility] CPT-67699 Level 4 Est. Patient 15:57:17 COPYHOLDER Tesfaye pearson MD [facility] CPT-73868 Level 3 New Patient 13:25:47 CDT Tesfaye kidd MD [facility] CPT-99625 Level 3 New Patient 17:22:21 CDT Kayla angel MD [facility] Procedures Code Procedure Name Date Entry Date Standard Desc ription CPT-J3420 Vitamin B12 1000mcg (Cyanocobalamin) 09:49:14 CDT CPT-90756 Abx/Therapy Injection 09:49:14 CDT CPT-J3420 Vitamin B12 1000mcg (Cyanocobalamin) 09:10:30 COPYHOLDER CPT-72354 Abx/Therapy Injection 09:10:30 COPYHOLDER CPT-J3420 Vitamin B12 1000mcg (Cyanocobalamin) 09:11:07 COPYHOLDER CPT-29838 Abx/Therapy Injection 09:11:07 COPYHOLDER CPT-J3420 Vitamin B12 1000mcg (Cyanocobalamin) 09:57:03 COPYHOLDER CPT-00147 Abx/Therapy Injection 09:57:03 COPYHOLDER CPT-J3420 Vitamin B12 1000mcg (Cyanocobalamin) 09:23:21 COPYHOLDER CPT-21774 Abx/Therapy Injection 09:23:21 COPYHOLDER CPT-04891 Urine Dip (Floor Use Only) 20:21:44 COPYHOLDER 201 02/12/11 CPT-74996 UA Dip Auto (Floor Use Only) 10:04:39 COPYHOLDER 2 CPT-87549 Urine Dip (Floor Use Only) 13:27:28 COPYHOLDER 201 02/12/01 CPT-29581 Bladder Scan 13:27:28 COPYHOLDER CPT-44082 Abd single AP View 14:30:51 COPYHOLDER CPT-OV Office Visit 10:15:43 CDT CPT-29868 Urine Dip (Floor Use Only) 17:22:21 CDT 201 02/09/02 CPT-84844 Bladder Scan 17:22:21 CDT
--- OUTSIDE RECORDS SUMMARY | 2020-05-05 12:48 | XMS REPORT | Clinical Summary ---
Author Author Talon, Jeri Wood Organization [facility] Address Unknown Phone Unavailable Allergies, [...] tab by mouth twice daily 2 TRIMETHOPRIM-SULFAMETHOXAZOLE 76435832835 Active Tesfaye Sherman MD Active VITAMIN D3 2000 UNIT TABS 1 daily, for vitamin D deficiency CHOLECALCIFEROL 39334827231 Active Tesfaye Sherman MD Activ e PRELIEF 340 (65-50) MG (CA-P) ORAL TABS CALCIUM GLYCEROPHOSPHATE 59555591211 Active Tesfaye Sherman MD Active [facility] NIACIN FLUSH FREE 400-100 MG CAPS 1 daily NIACIN-INOSITOL 35025672461 Active Kayla Cooper MD Active DIFLUCAN 150 MG TABS 1 qd FLUCONAZOLE 16557 610208 No Longer Active Kayla Cooper MD Active FLUTICASONE PROPIONATE 50 MCG/ACT SUSP 1 spray each nostril twice daily FLUTICASONE PROPIONATE 46853991080 Active Tesfaye armenat MD Active LOVASTATIN 20 MG TABS Take 1 tablet by mouth daily LOVASTATIN 59002675439 No Longer Active Tesfaye Sherman MD Active MELOXICAM 7.5 MG TABS 1 tablet by mouth daily Gisela ELOXICAM 35020075955 No Longer Active Tesfaye Sherman MD Active GABAPENTIN 300 MG CAPS Take two tablets by mouth every evening GABAPENTIN 22269593038 No Longer Active Edith Burch MD Active TRIMETHOPRIM 100 MG TABS 1/2 qd TRIMETHOPRIM 5627009 3001 Active Kayla Cooper MD Active TIZANIDINE HCL 2 MG TABS take one tablet by mouth every day at bedtime at 9pm TIZANIDINE HCL 60252057359 Active Kayla Cooper MD Active OXYCODONE-ACETAMINOPHEN 5-325 MG TABS Take one tablet by mouth every 6 hours as needed. Max 12 tabs/day as needed OXYCODONE-ACETAMINOP HEN 71986009186 Active Tesfaye Sherman MD Active CYMBALTA 60 MG CPEP Take 1 tablet by mouth daily D ULOXETINE HCL 57987242373 Active Kayla Cooper MD Active CLONAZEPAM 0.5 MG TABS Take one tablet in the morning and 1.5 table t at 7pm CLONAZEPAM 81401219833 Active Kayla Cooper MD Active CETIRIZINE HCL 5 MG TABS Take 1 tablet by mouth daily CETIRIZINE HCL 00627107926 Active Kayla Cooper MD Active BACLOFEN 10 MG TABS Take one tablet by mouth three times a day BACLOFEN 56004455491 Active Kayla Cooper MD Active GABAPENTIN 300 MG CAPS Take two tablets by mouth every evening GABAPENTIN 300 MG CAPS 163388 GABAPENTIN Inactive MELOXICAM 7.5 MG TABS 1 tablet by mouth daily MELOXICAM 7.5 MG TABS 774578 MELOXICAM Inactive LOVASTATIN 20 MG TABS Take 1 tablet by mouth daily 201 02/12/20 LOVASTATIN 20 MG TABS 577462 LOVASTATIN Inactive DIFLUCAN 150 MG TABS 1 qd DIFLUCAN 150 MG T ABS 755428 FLUCONAZOLE Inactive Advance Directives Directive Description Start [...] Panel - Chemistry sodium, serum 138 mmol/L 900-201 9605/10/20 potassium, serum 4.5 mmol/L 3.5-5.2 chloride, serum [...] 0.90 mg/dL 0.00-1.00 cholesterol, serum 237 mg/dL 597-717 7647/10/20 triglyceride, serum, fasting 71 mg/dL 30-200 HDL [...] Panel - Chemistry cholesterol, serum 221 mg/dL 831-029 9061/01/23 triglyceride, serum, fasting 81 mg/dL 30-200 HDL [...] negative Encounters Code Encounter Date Provider Facility CPT-22137 Level 4 Est. 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 Patient 11:02:24 OTR VAN CDL TRUCK DRIVER Tesfaye pearson MD [facility] CPT-62713 Level 3 Est. Patient 20:21:43 OTR VAN CDL TRUCK DRIVER Kayla jameson MD [facility] CPT-45901 Level 3 Est. Patient 13:27:28 OTR VAN CDL TRUCK DRIVER Kayla jameson MD [facility] CPT-26367 Level 4 Est. Patient 15:57:17 OTR VAN CDL TRUCK DRIVER Tesfaye pearson MD [facility] CPT-24856 Level 3 New Patient 13:25:47 CDT Tesfaye kidd MD [facility] CPT-62956 Level 3 New Patient 17:22:21 CDT Kayla angel MD [facility] Procedures Code Procedure Name Date Entry Date Standard Desc ription CPT-J3420 Vitamin B12 1000mcg (Cyanocobalamin) 09:23:21 OTR VAN CDL TRUCK DRIVER CPT-55623 Abx/Therapy Injection 09:23:21 OTR VAN CDL TRUCK DRIVER CPT-94749 Urine Dip (Floor Use Only) 20:21:44 OTR VAN CDL TRUCK DRIVER 201 02/12/11 CPT-03441 UA Dip Auto (Floor Use Only) 10:04:39 OTR VAN CDL TRUCK DRIVER 2 CPT-82930 Urine Dip (Floor Use Only) 13:27:28 OTR VAN CDL TRUCK DRIVER 201 02/12/01 CPT-70795 Bladder Scan 13:27:28 OTR VAN CDL TRUCK DRIVER CPT-72783 Abd single AP View 14:30:51 OTR VAN CDL TRUCK DRIVER CPT-OV Office Visit 10:15:43 CDT CPT-33786 Urine Dip (Floor Use Only) 17:22:21 CDT 201 02/09/02 CPT-64787 Bladder Scan 17:22:21 CDT
--- OUTSIDE RECORDS SUMMARY | 2020-05-05 12:48 | XMS REPORT | Clinical Summary ---
[...] specified Incomplete Bladder Emptying 788.21 Active Kayla Coopre MD Incomplete bladder emptying [employer] EXAMINATION [...] tab by mouth twice daily 2 TRIMETHOPRIM-SULFAMETHOXAZOLE 63474952456 No Longer Active Tesfaye Sherman MD Active VITAMIN D3 2000 UNIT TABS 1 daily, for vitamin D deficiency CHOLECALCIFEROL 38030578493 Active Tesfaye Sherman MD Activ e PRELIEF 340 (65-50) MG (CA-P) ORAL TABS CALCIUM GLYCEROPHOSPHATE 54211939223 Active Tesfaye Sherman MD Active [facility] NIACIN FLUSH FREE 400-100 MG CAPS 1 daily NIACIN-INOSITOL 31682235085 Active Kayla Cooper MD Active DIFLUCAN 150 MG TABS 1 qd FLUCONAZOLE 64460 635637 No Longer Active Kayla Cooper MD Active FLUTICASONE PROPIONATE 50 MCG/ACT SUSP 1 spray each nostril twice daily FLUTICASONE PROPIONATE 03207575837 Active Tesfaye armenta MD Active LOVASTATIN 20 MG TABS Take 1 tablet by mouth daily LOVASTATIN 16864138054 No Longer Active Tesfaye Sherman MD Active MELOXICAM 7.5 MG TABS 1 tablet by mouth daily Gisela ELOXICAM 76023465545 No Longer Active Tesfaye Sherman MD Active GABAPENTIN 300 MG CAPS Take two tablets by mouth every evening GABAPENTIN 85217953640 No Longer Active Edith Burch MD Active TRIMETHOPRIM 100 MG TABS 1/2 qd TRIMETHOPRIM 0944092 3001 Active Kayla Cooper MD Active TIZANIDINE HCL 2 MG TABS take one tablet by mouth every day at bedtime at 9pm TIZANIDINE HCL 29612598906 Active Kayla Cooper MD Active OXYCODONE-ACETAMINOPHEN 5-325 MG TABS Take one tablet by mouth every 6 hours as needed. Max 12 tabs/day as needed OXYCODONE-ACETAMINOP HEN 59669226165 Active Tesfaye Sherman MD Active CYMBALTA 60 MG CPEP Take 1 tablet by mouth daily D ULOXETINE HCL 37339522609 Active Kayla Cooper MD Active CLONAZEPAM 0.5 MG TABS Take one tablet in the morning and 1.5 table t at 7pm CLONAZEPAM 97999226815 Active Kayla Cooper MD Active CETIRIZINE HCL 5 MG TABS Take 1 tablet by mouth daily CETIRIZINE HCL 63201027657 Active Kayla Cooper MD Active BACLOFEN 10 MG TABS Take one tablet by mouth three times a day BACLOFEN 62977809420 Active Kayla Cooper MD Active GABAPENTIN 300 MG CAPS Take two tablets by mouth every evening GABAPENTIN 300 MG CAPS 961251 GABAPENTIN Inactive MELOXICAM 7.5 MG TABS 1 tablet by mouth daily MELOXICAM 7.5 MG TABS 228465 MELOXICAM Inactive LOVASTATIN 20 MG TABS Take 1 tablet by mouth daily 201 02/12/20 LOVASTATIN 20 MG TABS 570118 LOVASTATIN Inactive DIFLUCAN 150 MG TABS 1 qd DIFLUCAN 150 MG T ABS 633523 FLUCONAZOLE Inactive BACTRIM DS 800-160 MG TAB [...] Panel - Chemistry sodium, serum 138 mmol/L 520-997 6996/10/20 potassium, serum 4.5 mmol/L 3.5-5.2 chloride, serum [...] 0.90 mg/dL 0.00-1.00 cholesterol, serum 237 mg/dL 741-711 7249/10/20 triglyceride, serum, fasting 71 mg/dL 30-200 HDL [...] Panel - Chemistry cholesterol, serum 221 mg/dL 399-944 1154/01/23 triglyceride, serum, fasting 81 mg/dL 30-200 HDL [...] negative Encounters Code Encounter Date Provider Facility CPT-15036 Level 3 Est. 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 Patient 16:00:14 MASSAGE OPERATOR Tesfaye pearson MD [facility] CPT-29362 Level 4 Est. Patient 11:02:24 MASSAGE OPERATOR Tesfaye pearson MD [facility] CPT-29738 Level 3 Est. Patient 20:21:43 MASSAGE OPERATOR Kayla jameson MD [facility] CPT-80276 Level 3 Est. Patient 13:27:28 MASSAGE OPERATOR Kayla jameson MD [facility] CPT-96768 Level 4 Est. Patient 15:57:17 MASSAGE OPERATOR Tesfaye pearson MD [facility] CPT-13664 Level 3 New Patient 13:25:47 CDT Tesfaye kidd MD [facility] CPT-42204 Level 3 New Patient 17:22:21 CDT Kayla angel MD [facility] Procedures Code Procedure Name Date Entry Date Standard Desc ription CPT-J3420 Vitamin B12 1000mcg (Cyanocobalamin) 09:10:30 MASSAGE OPERATOR CPT-32669 Abx/Therapy Injection 09:10:30 MASSAGE OPERATOR CPT-J3420 Vitamin B12 1000mcg (Cyanocobalamin) 09:11:07 MASSAGE OPERATOR CPT-80328 Abx/Therapy Injection 09:11:07 MASSAGE OPERATOR CPT-J3420 Vitamin B12 1000mcg (Cyanocobalamin) 09:57:03 MASSAGE OPERATOR CPT-59139 Abx/Therapy Injection 09:57:03 MASSAGE OPERATOR CPT-J3420 Vitamin B12 1000mcg (Cyanocobalamin) 09:23:21 MASSAGE OPERATOR CPT-08102 Abx/Therapy Injection 09:23:21 MASSAGE OPERATOR CPT-48047 Urine Dip (Floor Use Only) 20:21:44 MASSAGE OPERATOR 201 02/12/11 CPT-83916 UA Dip Auto (Floor Use Only) 10:04:39 MASSAGE OPERATOR 2 CPT-93033 Urine Dip (Floor Use Only) 13:27:28 MASSAGE OPERATOR 201 02/12/01 CPT-94110 Bladder Scan 13:27:28 MASSAGE OPERATOR CPT-36781 Abd single AP View 14:30:51 MASSAGE OPERATOR CPT-OV Office Visit 10:15:43 CDT CPT-08164 Urine Dip (Floor Use Only) 17:22:21 CDT 201 02/09/02 CPT-72277 Bladder Scan 17:22:21 CDT
--- OUTSIDE RECORDS SUMMARY | 2020-05-05 12:49 | XMS REPORT | Clinical Summary ---
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 Active Kayla Owusu Urinary tract infection, site not specified Incomplete Bladder Emptying 788.21 Active Kayla Cooper MD Incomplete bladder emptying Medication List Medication Instructions Start Date Stop Date Generic Name NDC Status Provider Patient Instruction DIFLUCAN 150 MG TABS 1 qd FLUCONAZOLE 54520600506 Active Kayla Cooper MD Active TRIMETHOPRIM 100 MG TABS 1/2 qd TRIMETHOPRIM 5455003 3001 Active Kayla Cooper MD Active TIZANIDINE HCL 2 MG TABS take one tablet by mouth every day at bedtime at 9pm TIZANIDINE HCL 12406210824 Active Kayla Cooper MD Active OXYCODONE-ACETAMINOPHEN 5-325 MG TABS Take one tablet by mouth every 6 hours as needed. Max 12 tabs/day as needed OXYCODONE-ACETAMINOP HEN 50321196943 Active Kayla Cooper MD Active LOVASTATIN 20 MG TABS Take 1 tablet by mouth daily LOVASTATIN 44740158477 Active Kayla Cooper MD Active GABAPENTIN 300 MG CAPS Take two tablets by mouth every evening GABAPENTIN 26793694798 Active Kayla Cooper MD Active CYMBALTA 60 MG CPEP Take 1 tablet by mouth daily D ULOXETINE HCL 11853128053 Active Kayla Cooper MD Active CLONAZEPAM 0.5 MG TABS Take one tablet in the morning and 1.5 table t at 7pm CLONAZEPAM 95007640475 Active Kayla Cooper MD Active CETIRIZINE HCL 5 MG TABS Take 1 tablet by mouth daily CETIRIZINE HCL 35507660429 Active Kayla Cooper MD Active BACLOFEN 10 MG TABS Take one tablet by mouth three times a day BACLOFEN 76509073536 Active Kayla Cooper MD Active Advance Directives Directive Description Start Date PERMISSION TO SHARE PERMISSION TO SHARE Encounters Code Encounter Date Provider Facility CPT-97821 Level 3 New Patient 17:22:21 CDT Kayla angel MD [facility] Procedures Code Procedure Name Date Entry Date Standard Desc ription CPT-93842 Urine Dip (Floor Use Only) 17:22:21 CDT 201 02/09/02 CPT-29169 Bladder Scan 17:22:21 CDT
--- OUTSIDE RECORDS SUMMARY | 2020-05-05 12:49 | XMS REPORT | Clinical Summary ---
Author Author Jeri Hanley Organization [facility] Address Unknown Phone Unavailable Allergies, Adverse Reactions, [...] Instructions Start Date Stop Date Generic Name [facility] Status Provider Patient Instruction GABAPENTIN 300 MG CAPS Take two tablets by mouth every evening GABAPENTIN 95487516435 No Longer Active Edith Burch MD Active DIFLUCAN 150 MG TABS 1 qd FLUCONAZOLE 61145424373 Active Kayla Cooper MD Active TRIMETHOPRIM 100 MG TABS 1/2 qd TRIMETHOPRIM 8645686 3001 Active Kayla Cooper MD Active TIZANIDINE HCL 2 MG TABS take one tablet by mouth every day at bedtime at 9pm TIZANIDINE HCL 88974970655 Active Kayla Cooper MD Active OXYCODONE-ACETAMINOPHEN 5-325 MG TABS Take one tablet by mouth every 6 hours as needed. Max 12 tabs/day as needed OXYCODONE-ACETAMINOP HEN 55603116927 Active Kayla Cooper MD Active LOVASTATIN 20 MG TABS Take 1 tablet by mouth daily LOVASTATIN 33892603117 Active Kayla Cooper MD Active CYMBALTA 60 MG CPEP Take 1 tablet by mouth daily D ULOXETINE HCL 46085401806 Active Kayla Cooper MD Active CLONAZEPAM 0.5 MG TABS Take one tablet in the morning and 1.5 table t at 7pm CLONAZEPAM 73971119682 Active Kayla Cooper MD Active CETIRIZINE HCL 5 MG TABS Take 1 tablet by mouth daily CETIRIZINE HCL 85433172460 Active Kayla Cooper MD Active BACLOFEN 10 MG TABS Take one tablet by mouth three times a day BACLOFEN 56942862366 Active Kayla Cooper MD Active GABAPENTIN 300 MG CAPS Take two tablets by mouth every evening GABAPENTIN 300 MG CAPS 499442 GABAPENTIN Inactive Advance Directives Directive Description Start [...] negative Encounters Code Encounter Date Provider Facility CPT-55730 Level 3 New Patient 17:22:21 CDT Kayla angel MD [facility] Procedures Code Procedure Name Date Entry Date Standard Desc ription CPT-OV Office Visit 10:15:43 CDT CPT-12955 Urine Dip (Floor Use Only) 17:22:21 CDT 201 02/09/02 CPT-40295 Bladder Scan 17:22:21 CDT
--- OUTSIDE RECORDS SUMMARY | 2020-05-05 12:49 | XMS REPORT | Clinical Summary ---
Author Author Admin, Jeri Wood Organization [facility] Address Unknown Phone Unavailable Allergies, Adverse [...] Active Tesfaye Sherman MD Abnormal involuntary movements Medication List Medication Instructions Start Date Stop Date Generic Name NDC Status Provider Patient Instruction [facility] NIACIN FLUSH FREE 400-100 MG CAPS 1 daily NIACIN-INOSITOL 35718751887 Active Kayla Cooper MD Active DIFLUCAN 150 MG TABS 1 qd FLUCONAZOLE 53878 791881 No Longer Active Kayla Cooper MD Active FLUTICASONE PROPIONATE 50 MCG/ACT SUSP 1 spray each nostril twice daily FLUTICASONE PROPIONATE 09118558944 Active Tesfaye armenta MD Active LOVASTATIN 20 MG TABS Take 1 tablet by mouth daily LOVASTATIN 43226105065 No Longer Active Tesfaye Sherman MD Active MELOXICAM 7.5 MG TABS 1 tablet by mouth daily M ELOXICAM 26126553691 No Longer Active Tesfaye Sherman MD Active GABAPENTIN 300 MG CAPS Take two tablets by mouth every evening GABAPENTIN 00045997827 No Longer Active Edith Burch MD Active TRIMETHOPRIM 100 MG TABS 1/2 qd TRIMETHOPRIM 6138038 3001 Active Kayla Cooper MD Active TIZANIDINE HCL 2 MG TABS take one tablet by mouth every day at bedtime at 9pm TIZANIDINE HCL 50590364814 Active Kayla Cooper MD Active OXYCODONE-ACETAMINOPHEN 5-325 MG TABS Take one tablet by mouth every 6 hours as needed. Max 12 tabs/day as needed OXYCODONE-ACETAMINOP HEN 49086988095 Active Tesfaye Sherman MD Active CYMBALTA 60 MG CPEP Take 1 tablet by mouth daily D ULOXETINE HCL 63592730076 Active Kayla Cooper MD Active CLONAZEPAM 0.5 MG TABS Take one tablet in the morning and 1.5 table t at 7pm CLONAZEPAM 85001220703 Active Kayla Cooper MD Active CETIRIZINE HCL 5 MG TABS Take 1 tablet by mouth daily CETIRIZINE HCL 31089626240 Active Kayla Cooper MD Active BACLOFEN 10 MG TABS Take one tablet by mouth three times a day BACLOFEN 47334119154 Active Kayla Cooper MD Active GABAPENTIN 300 MG CAPS Take two tablets by mouth every evening GABAPENTIN 300 MG CAPS 385398 GABAPENTIN Inactive MELOXICAM 7.5 MG TABS 1 tablet by mouth daily MELOXICAM 7.5 MG TABS 257141 MELOXICAM Inactive LOVASTATIN 20 MG TABS Take 1 tablet by mouth daily 201 02/12/20 LOVASTATIN 20 MG TABS 156943 LOVASTATIN Inactive DIFLUCAN 150 MG TABS 1 qd DIFLUCAN 150 MG T ABS 855755 FLUCONAZOLE Inactive Advance Directives Directive Description Start [...] Panel - Chemistry sodium, serum 138 mmol/L 815-331 3402/10/20 potassium, serum 4.5 mmol/L 3.5-5.2 chloride, serum [...] 0.90 mg/dL 0.00-1.00 cholesterol, serum 237 mg/dL 212-517 1336/10/20 triglyceride, serum, fasting 71 mg/dL 30-200 HDL [...] negative Encounters Code Encounter Date Provider Facility CPT-92048 Level 3 Est. 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 Patient 15:57:17 SOLDERER FURNACE Tesfaye pearson MD [facility] CPT-34072 Level 3 New Patient 13:25:47 CDT Tesfaye kidd MD [facility] CPT-71263 Level 3 New Patient 17:22:21 CDT Kayla angel MD [facility] Procedures Code Procedure Name Date Entry Date Standard Desc ription CPT-34858 UA Dip Auto (Floor Use Only) 10:04:39 SOLDERER FURNACE 2 CPT-05365 Urine Dip (Floor Use Only) 13:27:28 SOLDERER FURNACE 201 02/12/01 CPT-72578 Bladder Scan 13:27:28 SOLDERER FURNACE CPT-22896 Abd single AP View 14:30:51 SOLDERER FURNACE CPT-OV Office Visit 10:15:43 CDT CPT-42079 Urine Dip (Floor Use Only) 17:22:21 CDT 201 02/09/02 CPT-77111 Bladder Scan 17:22:21 CDT
--- OUTSIDE RECORDS SUMMARY | 2020-05-05 12:49 | XMS REPORT | Clinical Summary ---
Author Author Admin, Jeri Wood Organization [facility] Address Unknown Phone Unavailable Allergies, Adverse [...] 1 tablet by mouth daily M ELOXICAM 29111198311 Active Tesfaye Sherman MD Active GABAPENTIN 300 MG CAPS Take two tablets by mouth every evening GABAPENTIN 32476392686 No Longer Active Edith Burch MD Active DIFLUCAN 150 MG TABS 1 qd FLUCONAZOLE 11684327200 Active Kayla Cooper MD Active TRIMETHOPRIM 100 MG TABS 1/2 qd TRIMETHOPRIM 9832074 3001 Active Kayla Cooper MD Active TIZANIDINE HCL 2 MG TABS take one tablet by mouth every day at bedtime at 9pm TIZANIDINE HCL 56954564523 Active Kayla Cooper MD Active OXYCODONE-ACETAMINOPHEN 5-325 MG TABS Take one tablet by mouth every 6 hours as needed. Max 12 tabs/day as needed OXYCODONE-ACETAMINOP HEN 03063982638 Active Kayla Cooper MD Active LOVASTATIN 20 MG TABS Take 1 tablet by mouth daily LOVASTATIN 19937863666 Active Kayla Cooper MD Active CYMBALTA 60 MG CPEP Take 1 tablet by mouth daily D ULOXETINE HCL 10572267431 Active Kayla Cooper MD Active CLONAZEPAM 0.5 MG TABS Take one tablet in the morning and 1.5 table t at 7pm CLONAZEPAM 51233613052 Active Kayla Cooper MD Active CETIRIZINE HCL 5 MG TABS Take 1 tablet by mouth daily CETIRIZINE HCL 35834015151 Active Kayla Cooper MD Active BACLOFEN 10 MG TABS Take one tablet by mouth three times a day BACLOFEN 52743287205 Active Kayla Cooper MD Active GABAPENTIN 300 MG CAPS Take two tablets by mouth every evening GABAPENTIN 300 MG CAPS 593681 GABAPENTIN Inactive Advance Directives Directive Description Start Date PERMISSION TO SHARE PERMISSION TO SHARE Vital Signs Date Name Value Unit Range Description blood pressure, diastolic 114 mm[Hg] BP lyon blood pressure, systolic 181 mm[Hg] BP sys pulse rate E&M 101 /min Heart rate temperature E&M 99.2 [degF] Body temp erature weight E&M 107.4 [lb_av] Weight Measure d blood pressure, diastolic 95 mm[Hg] BP lyon [...] Panel - Chemistry sodium, serum 138 mmol/L 960-766 5217/10/20 potassium, serum 4.5 mmol/L 3.5-5.2 chloride, serum [...] 0.90 mg/dL 0.00-1.00 cholesterol, serum 237 mg/dL 599-046 1687/10/20 triglyceride, serum, fasting 71 mg/dL 30-200 HDL [...] negative Encounters Code Encounter Date Provider Facility CPT-46342 Level 3 New Patient 13:25:47 CDT Tesfaye kidd MD [facility] CPT-80434 Level 3 New Patient 17:22:21 CDT Kayla angel MD [facility] Procedures Code Procedure Name Date Entry Date Standard Desc ription CPT-OV Office Visit 10:15:43 CDT CPT-36989 Urine Dip (Floor Use Only) 17:22:21 CDT 201 02/09/02 CPT-80879 Bladder Scan 17:22:21 CDT
--- OUTSIDE RECORDS SUMMARY | 2020-05-05 12:49 | XMS REPORT | Clinical Summary ---
Author Author Talon, Jeri Wood Organization [facility] Address Unknown Phone Unavailable Allergies, [...] 1 tablet by mouth daily M ELOXICAM 97897600223 Active Tesfaye Sherman MD Active GABAPENTIN 300 MG CAPS Take two tablets by mouth every evening GABAPENTIN 58848461030 No Longer Active Edith uBrch MD Active DIFLUCAN 150 MG TABS 1 qd FLUCONAZOLE 15190794074 Active Kayla Cooper MD Active TRIMETHOPRIM 100 MG TABS 1/2 qd TRIMETHOPRIM 8440996 3001 Active Kayla Cooper MD Active TIZANIDINE HCL 2 MG TABS take one tablet by mouth every day at bedtime at 9pm TIZANIDINE HCL 99461830877 Active Kayla Cooper MD Active OXYCODONE-ACETAMINOPHEN 5-325 MG TABS Take one tablet by mouth every 6 hours as needed. Max 12 tabs/day as needed OXYCODONE-ACETAMINOP HEN 92416467949 Active Kayla Cooper MD Active LOVASTATIN 20 MG TABS Take 1 tablet by mouth daily LOVASTATIN 11795317613 Active Kayla Cooper MD Active CYMBALTA 60 MG CPEP Take 1 tablet by mouth daily D ULOXETINE HCL 62626672729 Active Kayla Cooper MD Active CLONAZEPAM 0.5 MG TABS Take one tablet in the morning and 1.5 table t at 7pm CLONAZEPAM 20540471341 Active Kayla Cooper MD Active CETIRIZINE HCL 5 MG TABS Take 1 tablet by mouth daily CETIRIZINE HCL 33658846203 Active Kayla Cooper MD Active BACLOFEN 10 MG TABS Take one tablet by mouth three times a day BACLOFEN 60759200802 Active Kayla Cooper MD Active GABAPENTIN 300 MG CAPS Take two tablets by mouth every evening GABAPENTIN 300 MG CAPS 860734 GABAPENTIN Inactive Advance Directives Directive Description Start [...] Panel - Chemistry sodium, serum 138 mmol/L 108-819 8003/10/20 potassium, serum 4.5 mmol/L 3.5-5.2 chloride, serum [...] 0.90 mg/dL 0.00-1.00 cholesterol, serum 237 mg/dL 751-619 6672/10/20 triglyceride, serum, fasting 71 mg/dL 30-200 HDL [...] negative Encounters Code Encounter Date Provider Facility CPT-67902 Level 3 New Patient 13:25:47 CDT Tesfaye kidd MD [facility] CPT-84346 Level 3 New Patient 17:22:21 CDT Kayla angel MD [facility] Procedures Code Procedure Name Date Entry Date Standard Desc ription CPT-OV Office Visit 10:15:43 CDT CPT-47957 Urine Dip (Floor Use Only) 17:22:21 CDT 201 02/09/02 CPT-44105 Bladder Scan 17:22:21 CDT
--- OUTSIDE RECORDS SUMMARY | 2020-05-05 12:49 | XMS REPORT | Clinical Summary ---
Author Author Talon, Jeri Wood Organization [facility] Address Unknown Phone Unavailable [...] FREE 400-100 MG CAPS 1 daily NIACIN-INOSITOL 42507601308 Active Kayla Cooper MD Active DIFLUCAN 150 MG TABS 1 qd FLUCONAZOLE 96434 281526 No Longer Active Kayla Cooper MD Active FLUTICASONE PROPIONATE 50 MCG/ACT SUSP 1 spray each nostril twice daily FLUTICASONE PROPIONATE 84105480397 Active Tesfaye armenta MD Active LOVASTATIN 20 MG TABS Take 1 tablet by mouth daily LOVASTATIN 46939340432 No Longer Active Tesfaye Sherman MD Active MELOXICAM 7.5 MG TABS 1 tablet by mouth daily M ELOXICAM 16738501950 No Longer Active Tesfaye Sherman MD Active GABAPENTIN 300 MG CAPS Take two tablets by mouth every evening GABAPENTIN 72551776356 No Longer Active Edith Burch MD Active TRIMETHOPRIM 100 MG TABS 1/2 qd TRIMETHOPRIM 5494566 3001 Active Kayla Cooper MD Active TIZANIDINE HCL 2 MG TABS take one tablet by mouth every day at bedtime at 9pm TIZANIDINE HCL 61223676591 Active Kayla Cooper MD Active OXYCODONE-ACETAMINOPHEN 5-325 MG TABS Take one tablet by mouth every 6 hours as needed. Max 12 tabs/day as needed OXYCODONE-ACETAMINOP HEN 32164222879 Active Tesfaye Sherman MD Active CYMBALTA 60 MG CPEP Take 1 tablet by mouth daily D ULOXETINE HCL 69695723281 Active Kayla Cooper MD Active CLONAZEPAM 0.5 MG TABS Take one tablet in the morning and 1.5 table t at 7pm CLONAZEPAM 26042001713 Active Kayla Cooper MD Active CETIRIZINE HCL 5 MG TABS Take 1 tablet by mouth daily CETIRIZINE HCL 27210158653 Active Kayla Cooper MD Active BACLOFEN 10 MG TABS Take one tablet by mouth three times a day BACLOFEN 43502521956 Active J John Cooper MD Active GABAPENTIN 300 MG CAPS Take two tablets by mouth every evening GABAPENTIN 300 MG CAPS 052042 GABAPENTIN Inactive MELOXICAM 7.5 MG TABS 1 tablet by mouth daily MELOXICAM 7.5 MG TABS 991417 MELOXICAM Inactive LOVASTATIN 20 MG TABS Take 1 tablet by mouth daily 201 02/12/20 LOVASTATIN 20 MG TABS 899386 LOVASTATIN Inactive DIFLUCAN 150 MG TABS 1 qd DIFLUCAN 150 MG T ABS 068999 FLUCONAZOLE Inactive Advance Directives Directive Description Start [...] Panel - Chemistry sodium, serum 138 mmol/L 252-377 0007/10/20 potassium, serum 4.5 mmol/L 3.5-5.2 chloride, serum [...] 0.90 mg/dL 0.00-1.00 cholesterol, serum 237 mg/dL 850-470 5837/10/20 triglyceride, serum, fasting 71 mg/dL 30-200 HDL [...] negative Encounters Code Encounter Date Provider Facility CPT-35359 Level 3 Est. Patient 20:21:43 CODY jameson MD [facility] CPT-60985 Level 3 Est. Patient 13:27:28 WEATHER STRIPPER Kayla jameson MD [facility] CPT-40294 Level 4 Est. Patient 15:57:17 WEATHER STRIPPER Tesfaye pearson MD [facility] CPT-92016 Level 3 New Patient 13:25:47 CDT Tesfaye kidd MD [facility] CPT-12488 Level 3 New Patient 17:22:21 CDT Kayla angel MD [facility] Procedures Code Procedure Name Date Entry Date Standard Desc ription CPT-33492 Urine Dip (Floor Use Only) 20:21:44 WEATHER STRIPPER 201 02/12/11 CPT-63083 UA Dip Auto (Floor Use Only) 10:04:39 WEATHER STRIPPER 2 CPT-01646 Urine Dip (Floor Use Only) 13:27:28 WEATHER STRIPPER 201 02/12/01 CPT-15668 Bladder Scan 13:27:28 WEATHER STRIPPER CPT-48605 Abd single AP View 14:30:51 WEATHER STRIPPER CPT-OV Office Visit 10:15:43 CDT CPT-33856 Urine Dip (Floor Use Only) 17:22:21 CDT 201 02/09/02 CPT-44191 Bladder Scan 17:22:21 CDT
--- OUTSIDE RECORDS SUMMARY | 2020-05-05 12:49 | XMS REPORT | Clinical Summary ---
Author Author Admin, Jeri Wood Organization [facility] Address Unknown Phone Unavailable Allergies, Adverse Reactions, [...] FREE 400-100 MG CAPS 1 daily NIACIN-INOSITOL 77398798608 Active Kayla Cooper MD Active DIFLUCAN 150 MG TABS 1 qd FLUCONAZOLE 26274 337672 No Longer Active Kayla Cooper MD Active FLUTICASONE PROPIONATE 50 MCG/ACT SUSP 1 spray each nostril twice daily FLUTICASONE PROPIONATE 47545574203 Active Tesfaye armenta MD Active LOVASTATIN 20 MG TABS Take 1 tablet by mouth daily LOVASTATIN 85333423708 No Longer Active Tesfaye Sherman MD Active MELOXICAM 7.5 MG TABS 1 tablet by mouth daily M ELOXICAM 80924803804 No Longer Active Tesfaye Sherman MD Active GABAPENTIN 300 MG CAPS Take two tablets by mouth every evening GABAPENTIN 15538067679 No Longer Active Edith Burch MD Active TRIMETHOPRIM 100 MG TABS 1/2 qd TRIMETHOPRIM 8647287 3001 Active Kayla Cooper MD Active TIZANIDINE HCL 2 MG TABS take one tablet by mouth every day at bedtime at 9pm TIZANIDINE HCL 49881709956 Active Kayla Cooper MD Active OXYCODONE-ACETAMINOPHEN 5-325 MG TABS Take one tablet by mouth every 6 hours as needed. Max 12 tabs/day as needed OXYCODONE-ACETAMINOP HEN 38557064498 Active Tesfaye Sherman MD Active CYMBALTA 60 MG CPEP Take 1 tablet by mouth daily D ULOXETINE HCL 31897371526 Active Kayla Cooper MD Active CLONAZEPAM 0.5 MG TABS Take one tablet in the morning and 1.5 table t at 7pm CLONAZEPAM 08511609428 Active Kayla Cooper MD Active CETIRIZINE HCL 5 MG TABS Take 1 tablet by mouth daily CETIRIZINE HCL 14461646108 Active Kayla Cooper MD Active BACLOFEN 10 MG TABS Take one tablet by mouth three times a day BACLOFEN 25133516300 Active J John Cooper MD Active GABAPENTIN 300 MG CAPS Take two tablets by mouth every evening GABAPENTIN 300 MG CAPS 408070 GABAPENTIN Inactive MELOXICAM 7.5 MG TABS 1 tablet by mouth daily MELOXICAM 7.5 MG TABS 836035 MELOXICAM Inactive LOVASTATIN 20 MG TABS Take 1 tablet by mouth daily 201 02/12/20 LOVASTATIN 20 MG TABS 939732 LOVASTATIN Inactive DIFLUCAN 150 MG TABS 1 qd DIFLUCAN 150 MG T ABS 866962 FLUCONAZOLE Inactive Advance Directives Directive Description Start [...] Panel - Chemistry sodium, serum 138 mmol/L 365-644 0139/10/20 potassium, serum 4.5 mmol/L 3.5-5.2 chloride, serum [...] 0.90 mg/dL 0.00-1.00 cholesterol, serum 237 mg/dL 828-160 0671/10/20 triglyceride, serum, fasting 71 mg/dL 30-200 HDL [...] negative Encounters Code Encounter Date Provider Facility CPT-18441 Level 3 Est. Patient 20:21:43 PLANT ATTENDANT Kayla jameson MD [facility] CPT-55714 Level 3 Est. Patient 13:27:28 PLANT ATTENDANT Kayla jameson MD [facility] CPT-81296 Level 4 Est. Patient 15:57:17 PLANT ATTENDANT Tesfaye pearson MD [facility] CPT-72430 Level 3 New Patient 13:25:47 CDT Tesfaye kidd MD [facility] CPT-70364 Level 3 New Patient 17:22:21 CDT Kayla angel MD [facility] Procedures Code Procedure Name Date Entry Date Standard Desc ription CPT-79527 Urine Dip (Floor Use Only) 20:21:44 PLANT ATTENDANT 201 02/12/11 CPT-68949 UA Dip Auto (Floor Use Only) 10:04:39 PLANT ATTENDANT 2 CPT-79596 Urine Dip (Floor Use Only) 13:27:28 PLANT ATTENDANT 201 02/12/01 CPT-54168 Bladder Scan 13:27:28 PLANT ATTENDANT CPT-37159 Abd single AP View 14:30:51 PLANT ATTENDANT CPT-OV Office Visit 10:15:43 CDT CPT-01028 Urine Dip (Floor Use Only) 17:22:21 CDT 201 02/09/02 CPT-00388 Bladder Scan 17:22:21 CDT
--- OUTSIDE RECORDS SUMMARY | 2020-05-05 12:49 | XMS REPORT | Clinical Summary ---
Author Author Talon, Jeri Wood Organization [facility] Address Unknown Phone Unavailable Allergies, Adverse Reactions, Alerts Allergy Name Reaction Description Start Date Severity Status Pr ovider Allergies Unknown Conditions or Problems Problem Name Problem Code Onset Date Status Entry Date Provider Comment Standard Description Annotate Problems Unknown Active Medication List Medication Instructions Start Date Stop Date Generic Name NDC Status Provider Patient Instruction Drug Treatment Unknown - unknown
--- OUTSIDE RECORDS SUMMARY | 2020-05-05 12:49 | XMS REPORT ---
Author Author [facility] Staff[facility] Organization [facility] Address [address] [id number] Phone [phone] Care Team Providers Care Hem Marker Name Role Phone MANUELITO SAMPSON MD PP [phone] Summary purpose TRANSITION OF CARE AUTO GENERATION Chief Complaint and Reason for Visit Admit Diagnosis 1 OT SCREEN MAMMOGRAM Problem list No authorized problems tracked for [...] visit Relevant diagnostic tests and/or laboratory data RESULTS Radiology Results [id number] Bilateral Screen Digital Mammo PACs Image DATE OF EXAM: Sep 01 2014 [facility] 0845-BILAT SCREEN DIG MA MMO : RADIOLOGY REPORT DATE OF SERVICE: 09/01/14 HISTORY: Screening for possible malignan t neoplasm BILATERAL SCREENING DIGITAL MAMMOGRAPHY WITH iCAD SecondLook 7.2-H+ 1445 HOURS Breast parenchyma is dense. This decreas es sensitivity. There is mild nodularity in both breasts. This is edge beader iglesia from outside studies dated 2011 and 2009 obtained from [place], [place]. IMPRESSION: Benign BI-RADS category II study. Kalie Cook DO /nd 09/02/2014 08:51:00 / 08/05 09:02:04 cc:Dr. Gilbert Burch This document has been electronically Signed by: On: DATE OF EXAM: Sep 01 2014 [facility] 0845-BILAT SCREEN DIG MA MMO : RADIOLOGY REPORT DATE OF SERVICE: 09/01/14 HISTORY: Screening for possible malignan t neoplasm BILATERAL SCREENING DIGITAL MAMMOGRAPHY WITH iCAD SecondLook 7.2-H+ 1445 HOURS Breast parenchyma is dense. This decreas es sensitivity. There is mild nodularity in both breasts. This is edge beader iglesia from outside studies dated 2011 and 2009 obtained from [place], [place]. IMPRESSION: Benign BI-RADS category II study. Kalie Cook DO /nd 09/02/2014 08:51:00 08/05 09:02:04 cc:Dr. Gilbert Burch This document has been electronically Signed by: KALIE COOK DO On: Sep 05 20141:08P Result Amended on 2014-09-05 at 13:11:13 . Previous status was UT. History of procedures Procedure Code Code Type Description Date Performed Performing Physician 73994 CPT-4 MAMMOGRAM, SCREENING 09-01-2014 GILBERT BURCH 69068 CPT-4 COMP SCREEN MAMMOGRAM ADD-ON 09-01-2014 GILBERT BURCH Functional status No functional or cognitive status [...]
--- OUTSIDE RECORDS SUMMARY | 2020-05-05 12:50 | XMS REPORT | Clinical Summary ---
Author Author Talon, Jeri Wood Organization [facility] Address Unknown Phone Unavailable Allergies, Adverse [...]
--- OUTSIDE RECORDS SUMMARY | 2020-05-05 12:50 | XMS REPORT | Clinical Summary ---
Author Author Jeri Hanley Organization [facility] Address Unknown Phone Unavailable Allergies, Adverse Reactions, [...] Instructions Start Date Stop Date Generic Name [facility] Status Provider Patient Instruction GABAPENTIN 300 MG CAPS Take two tablets by mouth every evening GABAPENTIN 68017990707 No Longer Active Edith Burch MD Active DIFLUCAN 150 MG TABS 1 qd FLUCONAZOLE 84029090727 Active Kayla Cooper MD Active TRIMETHOPRIM 100 MG TABS 1/2 qd TRIMETHOPRIM 2089771 3001 Active Kayla Cooper MD Active TIZANIDINE HCL 2 MG TABS take one tablet by mouth every day at bedtime at 9pm TIZANIDINE HCL 52527504479 Active Kayla Cooper MD Active OXYCODONE-ACETAMINOPHEN 5-325 MG TABS Take one tablet by mouth every 6 hours as needed. Max 12 tabs/day as needed OXYCODONE-ACETAMINOP HEN 82126202992 Active Kayla Cooper MD Active LOVASTATIN 20 MG TABS Take 1 tablet by mouth daily LOVASTATIN 92535033341 Active Kayla Cooper MD Active CYMBALTA 60 MG CPEP Take 1 tablet by mouth daily D ULOXETINE HCL 47977483900 Active Kayla Cooper MD Active CLONAZEPAM 0.5 MG TABS Take one tablet in the morning and 1.5 table t at 7pm CLONAZEPAM 14245784084 Active Kayla Cooper MD Active CETIRIZINE HCL 5 MG TABS Take 1 tablet by mouth daily CETIRIZINE HCL 12086336521 Active Kayla Cooper MD Active BACLOFEN 10 MG TABS Take one tablet by mouth three times a day BACLOFEN 42314928512 Active Kayla Cooper MD Active GABAPENTIN 300 MG CAPS Take two tablets by mouth every evening GABAPENTIN 300 MG CAPS 922016 GABAPENTIN Inactive Advance Directives Directive Description Start [...] negative Encounters Code Encounter Date Provider Facility CPT-77998 Level 3 New Patient 17:22:21 CDT Kayla angel MD [facility] Procedures Code Procedure Name Date Entry Date Standard Desc ription CPT-OV Office Visit 10:15:43 CDT CPT-09615 Urine Dip (Floor Use Only) 17:22:21 CDT 201 02/09/02 CPT-85950 Bladder Scan 17:22:21 CDT
--- OUTSIDE RECORDS SUMMARY | 2020-05-05 12:50 | XMS REPORT | Clinical Summary ---
[...] FREE 400-100 MG CAPS 1 daily NIACIN-INOSITOL 81399605228 Active Kayla Coopre MD Active DIFLUCAN 150 MG TABS 1 qd FLUCONAZOLE 78148 278020 No Longer Active Kayla Cooper MD Active FLUTICASONE PROPIONATE 50 MCG/ACT SUSP 1 spray each nostril twice daily FLUTICASONE PROPIONATE 89811501604 Active Tesfaye armenta MD Active LOVASTATIN 20 MG TABS Take 1 tablet by mouth daily LOVASTATIN 79850422656 No Longer Active Tesfaye Sherman MD Active MELOXICAM 7.5 MG TABS 1 tablet by mouth daily M ELOXICAM 18853680864 No Longer Active Tesfaye Sherman MD Active GABAPENTIN 300 MG CAPS Take two tablets by mouth every evening GABAPENTIN 77427016792 No Longer Active Edith Burch MD Active TRIMETHOPRIM 100 MG TABS 1/2 qd TRIMETHOPRIM 6906429 3001 Active Kayla Cooper MD Active TIZANIDINE HCL 2 MG TABS take one tablet by mouth every day at bedtime at 9pm TIZANIDINE HCL 71682837333 Active Kayla Cooper MD Active OXYCODONE-ACETAMINOPHEN 5-325 MG TABS Take one tablet by mouth every 6 hours as needed. Max 12 tabs/day as needed OXYCODONE-ACETAMINOP HEN 57894512578 Active Tesfaye Sherman MD Active CYMBALTA 60 MG CPEP Take 1 tablet by mouth daily D ULOXETINE HCL 21172269002 Active Kayla Cooper MD Active CLONAZEPAM 0.5 MG TABS Take one tablet in the morning and 1.5 table t at 7pm CLONAZEPAM 55616280308 Active Kyala Cooper MD Active CETIRIZINE HCL 5 MG TABS Take 1 tablet by mouth daily CETIRIZINE HCL 43963267349 Active Kayla Cooper MD Active BACLOFEN 10 MG TABS Take one tablet by mouth three times a day BACLOFEN 02670682625 Active J John Cooper MD Active GABAPENTIN 300 MG CAPS Take two tablets by mouth every evening GABAPENTIN 300 MG CAPS 881077 GABAPENTIN Inactive MELOXICAM 7.5 MG TABS 1 tablet by mouth daily MELOXICAM 7.5 MG TABS 297929 MELOXICAM Inactive LOVASTATIN 20 MG TABS Take 1 tablet by mouth daily 201 02/12/20 LOVASTATIN 20 MG TABS 734053 LOVASTATIN Inactive DIFLUCAN 150 MG TABS 1 qd DIFLUCAN 150 MG T ABS 934245 FLUCONAZOLE Inactive Advance Directives Directive Description Start [...] - Chemistry blood glucose 95 mg/dL 65-110 creatinine, serum 0.70 mg/dL 0.60-1.30 alanine aminotransferase (SGPT), serum 15 U/L 12-78 aspartate aminotransferase (SGOT), serum 17 U/L 15-37 alkaline phosphatase, serum 90 U/L 50-136 calcium, serum 9.8 mg/dL 8.5-10.1 bilirubin, serum, total 0.90 mg/dL 0.00-1.00 cholesterol, serum 237 mg/dL 810-552 0980/10/20 triglyceride, serum, fasting 71 mg/dL 30-200 HDL cholesterol, serum 54 mg/dL 32-96 LDL cholesterol, serum 169 mg/dL 0-130 carbon dioxide, venous blood 28.2 mmol/L 21.0-32 .0 chloride, serum 98 mmol/L 98-107 potassium, serum 4.5 mmol/L 3.5-5.2 sodium, serum 138 mmol/L 045-761 8484/10/20 urea nitrogen, blood 6 mg/dL 7-18 Lab [...] mg/dL Negative RBC, urine, dipstick Negative Negative RBC, urine, dipstick Trace Negative protein, [...] urine, semiquantitative (dipstick) negative urine color yellow Encounters Code Encounter Date Provider Facility CPT-61705 Level 3 Est. Patient 20:21:43 SUBGRADE TESTER Kayla jameson MD [facility] CPT-44213 Level 3 Est. Patient 13:27:28 SUBGRADE TESTER Kayla jameson MD [facility] CPT-63371 Level 4 Est. Patient 15:57:17 SUBGRADE TESTER Tesfaye pearson MD [facility] CPT-78433 Level 3 New Patient 13:25:47 CDT Tesfaye kidd MD [facility] CPT-71501 Level 3 New Patient 17:22:21 CDT Kayla angel MD [facility] Procedures Code Procedure Name Date Entry Date Standard Desc ription CPT-12663 Urine Dip (Floor Use Only) 20:21:44 SUBGRADE TESTER 201 02/12/11 CPT-97328 UA Dip Auto (Floor Use Only) 10:04:39 SUBGRADE TESTER 2 CPT-38024 Urine Dip (Floor Use Only) 13:27:28 SUBGRADE TESTER 201 02/12/01 CPT-59942 Bladder Scan 13:27:28 SUBGRADE TESTER CPT-39565 Abd single AP View 14:30:51 SUBGRADE TESTER CPT-OV Office Visit 10:15:43 CDT CPT-05904 Urine Dip (Floor Use Only) 17:22:21 CDT 201 02/09/02 CPT-03777 Bladder Scan 17:22:21 CDT
--- OUTSIDE RECORDS SUMMARY | 2020-05-05 12:50 | XMS REPORT | Clinical Summary ---
Author Author Talon, Jeri Wood Organization [facility] Address Unknown Phone Unavailable Allergies, Adverse Reactions, Alerts Allergy Name Reaction Description Start Date Severity Status Pr ovider XANAX Critical Active Kayla Shaw on SAVELLFer Critical Active Kayla Shaw on NUVIGIIsrael Critical Active Kayla Shaw on NAPROXLINNEA MEDLEY Critical Active Kayla Edward son BENADRYL Critical Active Kayla Shaw on ATIVAN Critical Active aKyla tate MD Conditions or Problems Problem Name [...] 1 tablet by mouth daily M ELOXICAM 60619375768 Active Tesfaye Sherman MD Active GABAPENTIN 300 MG CAPS Take two tablets by mouth every evening GABAPENTIN 59623200540 No Longer Active Edith Burch MD Active DIFLUCAN 150 MG TABS 1 qd FLUCONAZOLE 52447061013 Active Kayla Cooper MD Active TRIMETHOPRIM 100 MG TABS 1/2 qd TRIMETHOPRIM 7677635 3001 Active Kayla Cooper MD Active TIZANIDINE HCL 2 MG TABS take one tablet by mouth every day at bedtime at 9pm TIZANIDINE HCL 86304649029 Active Kayla Cooper MD Active OXYCODONE-ACETAMINOPHEN 5-325 MG TABS Take one tablet by mouth every 6 hours as needed. Max 12 tabs/day as needed OXYCODONE-ACETAMINOP HEN 95275192221 Active Kayla Cooper MD Active LOVASTATIN 20 MG TABS Take 1 tablet by mouth daily LOVASTATIN 13180984391 Active Kayla Cooper MD Active CYMBALTA 60 MG CPEP Take 1 tablet by mouth daily D ULOXETINE HCL 18323235404 Active Kayla Cooper MD Active CLONAZEPAM 0.5 MG TABS Take one tablet in the morning and 1.5 table t at 7pm CLONAZEPAM 60236288499 Active Kayla Cooper MD Active CETIRIZINE HCL 5 MG TABS Take 1 tablet by mouth daily CETIRIZINE HCL 95750495418 Active Kayla Cooper MD Active BACLOFEN 10 MG TABS Take one tablet by mouth three times a day BACLOFEN 56075503931 Active Kayla Cooper MD Active GABAPENTIN 300 MG CAPS Take two tablets by mouth every evening GABAPENTIN 300 MG CAPS 692064 GABAPENTIN Inactive Advance Directives Directive Description Start [...] Panel - Chemistry sodium, serum 138 mmol/L 639-578 0811/10/20 potassium, serum 4.5 mmol/L 3.5-5.2 chloride, serum [...] 0.90 mg/dL 0.00-1.00 cholesterol, serum 237 mg/dL 854-020 1404/10/20 triglyceride, serum, fasting 71 mg/dL 30-200 HDL [...] negative Encounters Code Encounter Date Provider Facility CPT-22874 Level 3 New Patient 13:25:47 CDT Tesfaye kidd MD [facility] CPT-35205 Level 3 New Patient 17:22:21 CDT Kayla angel MD [facility] Procedures Code Procedure Name Date Entry Date Standard Desc ription CPT-OV Office Visit 10:15:43 CDT CPT-71346 Urine Dip (Floor Use Only) 17:22:21 CDT 201 02/09/02 CPT-20721 Bladder Scan 17:22:21 CDT
--- OUTSIDE RECORDS SUMMARY | 2020-05-05 12:50 | XMS REPORT | Clinical Summary ---
Author Author Talon, Jeri Wood Organization [facility] Address Unknown Phone Unavailable Allergies, Adverse [...] 1 tablet by mouth daily M ELOXICAM 45756979089 Active Tesfaye Sherman MD Active GABAPENTIN 300 MG CAPS Take two tablets by mouth every evening GABAPENTIN 49322818159 No Longer Active Edith Burch MD Active DIFLUCAN 150 MG TABS 1 qd FLUCONAZOLE 01198348307 Active Kayla Cooper MD Active TRIMETHOPRIM 100 MG TABS 1/2 qd TRIMETHOPRIM 9595905 3001 Active Kayla Cooper MD Active TIZANIDINE HCL 2 MG TABS take one tablet by mouth every day at bedtime at 9pm TIZANIDINE HCL 16694462565 Active Kayla Cooper MD Active OXYCODONE-ACETAMINOPHEN 5-325 MG TABS Take one tablet by mouth every 6 hours as needed. Max 12 tabs/day as needed OXYCODONE-ACETAMINOP HEN 86305589153 Active Kayla Cooper MD Active LOVASTATIN 20 MG TABS Take 1 tablet by mouth daily LOVASTATIN 84540694468 Active Kayla Cooper MD Active CYMBALTA 60 MG CPEP Take 1 tablet by mouth daily D ULOXETINE HCL 98080205489 Active Kayla Cooper MD Active CLONAZEPAM 0.5 MG TABS Take one tablet in the morning and 1.5 table t at 7pm CLONAZEPAM 68975851057 Active Kayla Cooper MD Active CETIRIZINE HCL 5 MG TABS Take 1 tablet by mouth daily CETIRIZINE HCL 43375549782 Active Kayla Cooper MD Active BACLOFEN 10 MG TABS Take one tablet by mouth three times a day BACLOFEN 87229396298 Active Kayla Cooper MD Active GABAPENTIN 300 MG CAPS Take two tablets by mouth every evening GABAPENTIN 300 MG CAPS 864990 GABAPENTIN Inactive Advance Directives Directive Description Start [...] Panel - Chemistry sodium, serum 138 mmol/L 713-244 4729/10/20 potassium, serum 4.5 mmol/L 3.5-5.2 chloride, serum [...] 0.90 mg/dL 0.00-1.00 cholesterol, serum 237 mg/dL 293-662 5002/10/20 triglyceride, serum, fasting 71 mg/dL 30-200 HDL [...] negative Encounters Code Encounter Date Provider Facility CPT-31521 Level 3 New Patient 13:25:47 CDT Tesfaye kidd MD [facility] CPT-49224 Level 3 New Patient 17:22:21 CDT Kayla angel MD [facility] Procedures Code Procedure Name Date Entry Date Standard Desc ription CPT-OV Office Visit 10:15:43 CDT CPT-39862 Urine Dip (Floor Use Only) 17:22:21 CDT 201 02/09/02 CPT-91901 Bladder Scan 17:22:21 CDT
--- OUTSIDE RECORDS SUMMARY | 2020-05-05 12:50 | XMS REPORT | Clinical Summary ---
Author Author Admin, Jeri Wood Organization [facility] Address Unknown Phone Unavailable Allergies, Adverse Reactions, [...] Generic Name NDC Status Provider Patient Instruction FLUTICASONE PROPIONATE 50 MCG/ACT SUSP 1 spray each nostril twice daily FLUTICASONE PROPIONATE 40462306194 Active Tesfaye armenta MD Active LOVASTATIN 20 MG TABS Take 1 tablet by mouth daily LOVASTATIN 02508526138 No Longer Active Tesfaye Sherman MD Active MELOXICAM 7.5 MG TABS 1 tablet by mouth daily M ELOXICAM 65797797148 No Longer Active Tesfaye Sherman MD Active GABAPENTIN 300 MG CAPS Take two tablets by mouth every evening GABAPENTIN 98426459134 No Longer Active Edith Burch MD Active DIFLUCAN 150 MG TABS 1 qd FLUCONAZOLE 60686577092 Active Kayla Cooper MD Active TRIMETHOPRIM 100 MG TABS 1/2 qd TRIMETHOPRIM 8588790 3001 Active Kayla Cooper MD Active TIZANIDINE HCL 2 MG TABS take one tablet by mouth every day at bedtime at 9pm TIZANIDINE HCL 76994848871 Active Kayla Cooper MD Active OXYCODONE-ACETAMINOPHEN 5-325 MG TABS Take one tablet by mouth every 6 hours as needed. Max 12 tabs/day as needed OXYCODONE-ACETAMINOP HEN 37247753617 Active Tesfaye Sherman MD Active CYMBALTA 60 MG CPEP Take 1 tablet by mouth daily D ULOXETINE HCL 22648304482 Active Kayla Cooper MD Active CLONAZEPAM 0.5 MG TABS Take one tablet in the morning and 1.5 table t at 7pm CLONAZEPAM 08390165259 Active Kayla Cooper MD Active CETIRIZINE HCL 5 MG TABS Take 1 tablet by mouth daily CETIRIZINE HCL 07295576001 Active Kayla Cooper MD Active BACLOFEN 10 MG TABS Take one tablet by mouth three times a day BACLOFEN 62682809456 Active Kayla Cooper MD Active GABAPENTIN 300 MG CAPS Take two tablets by mouth every evening GABAPENTIN 300 MG CAPS 544005 GABAPENTIN Inactive MELOXICAM 7.5 MG TABS 1 tablet by mouth daily MELOXICAM 7.5 MG TABS 106971 MELOXICAM Inactive LOVASTATIN 20 MG TABS Take 1 tablet by mouth daily 201 02/12/20 LOVASTATIN 20 MG TABS 198445 LOVASTATIN Inactive Advance Directives Directive Description Start Date PERMISSION TO SHARE PERMISSION TO SHARE Vital Signs Date Name Value Unit Range Description blood pressure, diastolic - 8462-4 114 mm[Hg] [...] Panel - Chemistry sodium, serum 138 mmol/L 198-334 5761/10/20 potassium, serum 4.5 mmol/L 3.5-5.2 chloride, serum [...] 0.90 mg/dL 0.00-1.00 cholesterol, serum 237 mg/dL 406-133 9607/10/20 triglyceride, serum, fasting 71 mg/dL 30-200 HDL [...] negative Encounters Code Encounter Date Provider Facility CPT-51547 Level 4 Est. Patient 15:57:17 PSYCHOLOGY TEACHER Tesfaye pearson MD [facility] CPT-09511 Level 3 New Patient 13:25:47 CDT Tesfaye kidd MD [facility] CPT-94352 Level 3 New Patient 17:22:21 CDT Kayla angel MD [facility] Procedures Code Procedure Name Date Entry Date Standard Desc ription CPT-73276 Abd single AP View 14:30:51 PSYCHOLOGY TEACHER CPT-OV Office Visit 10:15:43 CDT CPT-75639 Urine Dip (Floor Use Only) 17:22:21 CDT 201 02/09/02 CPT-61574 Bladder Scan 17:22:21 CDT
--- OUTSIDE RECORDS SUMMARY | 2020-05-05 12:50 | XMS REPORT | Clinical Summary ---
Author Author Admin, Jeri Wood Organization [facility] Address Unknown Phone Unavailable Allergies, Adverse Reactions, [...] emptying WELL WOMAN EXAMINATION V72.31 Active Edith schoifeld MD Routine gynecological examination Dyspareunia 625.0 Active [...] FREE 400-100 MG CAPS 1 daily NIACIN-INOSITOL 39855415305 Active Kayla Cooper MD Active DIFLUCAN 150 MG TABS 1 qd FLUCONAZOLE 41923 564416 No Longer Active Kayla Cooper MD Active FLUTICASONE PROPIONATE 50 MCG/ACT SUSP 1 spray each nostril twice daily FLUTICASONE PROPIONATE 62233729536 Active Tesfaye armenta MD Active LOVASTATIN 20 MG TABS Take 1 tablet by mouth daily LOVASTATIN 27046006409 No Longer Active Tesfaye Sherman MD Active MELOXICAM 7.5 MG TABS 1 tablet by mouth daily M ELOXICAM 75434186077 No Longer Active Tesfaye Sherman MD Active GABAPENTIN 300 MG CAPS Take two tablets by mouth every evening GABAPENTIN 87756169327 No Longer Active Edith Burch MD Active TRIMETHOPRIM 100 MG TABS 1/2 qd TRIMETHOPRIM 9451266 3001 Active Kayla Cooper MD Active TIZANIDINE HCL 2 MG TABS take one tablet by mouth every day at bedtime at 9pm TIZANIDINE HCL 75633163574 Active Kayla Cooper MD Active OXYCODONE-ACETAMINOPHEN 5-325 MG TABS Take one tablet by mouth every 6 hours as needed. Max 12 tabs/day as needed OXYCODONE-ACETAMINOP HEN 58095192002 Active Tesfaye Sherman MD Active CYMBALTA 60 MG CPEP Take 1 tablet by mouth daily D ULOXETINE HCL 65845174664 Active Kayla Cooper MD Active CLONAZEPAM 0.5 MG TABS Take one tablet in the morning and 1.5 table t at 7pm CLONAZEPAM 07860267262 Active Kayla Cooper MD Active CETIRIZINE HCL 5 MG TABS Take 1 tablet by mouth daily CETIRIZINE HCL 27354539889 Active Kayla Cooper MD Active BACLOFEN 10 MG TABS Take one tablet by mouth three times a day BACLOFEN 49822516883 Active J John Cooper MD Active GABAPENTIN 300 MG CAPS Take two tablets by mouth every evening GABAPENTIN 300 MG CAPS 234702 GABAPENTIN Inactive MELOXICAM 7.5 MG TABS 1 tablet by mouth daily MELOXICAM 7.5 MG TABS 951869 MELOXICAM Inactive LOVASTATIN 20 MG TABS Take 1 tablet by mouth daily 201 02/12/20 LOVASTATIN 20 MG TABS 241106 LOVASTATIN Inactive DIFLUCAN 150 MG TABS 1 qd DIFLUCAN 150 MG T ABS 430021 FLUCONAZOLE Inactive Advance Directives Directive Description Start [...] Panel - Chemistry sodium, serum 138 mmol/L 320-345 5500/10/20 potassium, serum 4.5 mmol/L 3.5-5.2 chloride, serum [...] 0.90 mg/dL 0.00-1.00 cholesterol, serum 237 mg/dL 518-876 0864/10/20 triglyceride, serum, fasting 71 mg/dL 30-200 HDL [...] negative Encounters Code Encounter Date Provider Facility CPT-39826 Level 3 Est. Patient 20:21:43 SPARK TESTER Kayla jameson MD [facility] CPT-92896 Level 3 Est. Patient 13:27:28 SPARK TESTER Kayla jameson MD [facility] CPT-46081 Level 4 Est. Patient 15:57:17 SPARK TESTER Tesfaye pearson MD [facility] CPT-12105 Level 3 New Patient 13:25:47 CDT Tesfaye kidd MD [facility] CPT-61333 Level 3 New Patient 17:22:21 CDT Kayla angel MD [facility] Procedures Code Procedure Name Date Entry Date Standard Desc ription CPT-77817 Urine Dip (Floor Use Only) 20:21:44 SPARK TESTER 201 02/12/11 CPT-62707 UA Dip Auto (Floor Use Only) 10:04:39 SPARK TESTER 2 CPT-50577 Urine Dip (Floor Use Only) 13:27:28 SPARK TESTER 201 02/12/01 CPT-28714 Bladder Scan 13:27:28 SPARK TESTER CPT-91655 Abd single AP View 14:30:51 SPARK TESTER CPT-OV Office Visit 10:15:43 CDT CPT-10048 Urine Dip (Floor Use Only) 17:22:21 CDT 201 02/09/02 CPT-51365 Bladder Scan 17:22:21 CDT
--- OUTSIDE RECORDS SUMMARY | 2020-05-05 12:50 | XMS REPORT | Clinical Summary ---
Author Author Admin, Jeri Wood Organization [facility] Address Unknown Phone Unavailable Allergies, Adverse [...] FREE 400-100 MG CAPS 1 daily NIACIN-INOSITOL 76408374534 Active Kayla Cooper MD Active DIFLUCAN 150 MG TABS 1 qd FLUCONAZOLE 81313 579115 No Longer Active Kayla Cooper MD Active FLUTICASONE PROPIONATE 50 MCG/ACT SUSP 1 spray each nostril twice daily FLUTICASONE PROPIONATE 61597691226 Active Tesfaye armenta MD Active LOVASTATIN 20 MG TABS Take 1 tablet by mouth daily LOVASTATIN 22459311857 No Longer Active Tesfaye Sherman MD Active MELOXICAM 7.5 MG TABS 1 tablet by mouth daily M ELOXICAM 63279265373 No Longer Active Tesfaye Sherman MD Active GABAPENTIN 300 MG CAPS Take two tablets by mouth every evening GABAPENTIN 35494271839 No Longer Active Edith Burch MD Active TRIMETHOPRIM 100 MG TABS 1/2 qd TRIMETHOPRIM 7036053 3001 Active Kayla Cooper MD Active TIZANIDINE HCL 2 MG TABS take one tablet by mouth every day at bedtime at 9pm TIZANIDINE HCL 50478298047 Active Kayla Cooper MD Active OXYCODONE-ACETAMINOPHEN 5-325 MG TABS Take one tablet by mouth every 6 hours as needed. Max 12 tabs/day as needed OXYCODONE-ACETAMINOP HEN 84284167782 Active Tesfaye Sherman MD Active CYMBALTA 60 MG CPEP Take 1 tablet by mouth daily D ULOXETINE HCL 91698961252 Active Kayla Cooper MD Active CLONAZEPAM 0.5 MG TABS Take one tablet in the morning and 1.5 table t at 7pm CLONAZEPAM 25741153691 Active Kayla Cooper MD Active CETIRIZINE HCL 5 MG TABS Take 1 tablet by mouth daily CETIRIZINE HCL 67875260082 Active Kayla Cooper MD Active BACLOFEN 10 MG TABS Take one tablet by mouth three times a day BACLOFEN 64276544151 Active Kayla Cooper MD Active GABAPENTIN 300 MG CAPS Take two tablets by mouth every evening GABAPENTIN 300 MG CAPS 961332 GABAPENTIN Inactive MELOXICAM 7.5 MG TABS 1 tablet by mouth daily MELOXICAM 7.5 MG TABS 601163 MELOXICAM Inactive LOVASTATIN 20 MG TABS Take 1 tablet by mouth daily 201 02/12/20 LOVASTATIN 20 MG TABS 969104 LOVASTATIN Inactive DIFLUCAN 150 MG TABS 1 qd DIFLUCAN 150 MG T ABS 693862 FLUCONAZOLE Inactive Advance Directives Directive Description Start [...] Panel - Chemistry sodium, serum 138 mmol/L 960-454 4893/10/20 potassium, serum 4.5 mmol/L 3.5-5.2 chloride, serum [...] 0.90 mg/dL 0.00-1.00 cholesterol, serum 237 mg/dL 504-519 6563/10/20 triglyceride, serum, fasting 71 mg/dL 30-200 HDL [...] negative Encounters Code Encounter Date Provider Facility CPT-32004 Level 3 Est. 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 Patient 15:57:17 FLOUR MIXER HELPER Tesfaye pearson MD [facility] CPT-88676 Level 3 New Patient 13:25:47 CDT Tesfaye kidd MD [facility] CPT-18999 Level 3 New Patient 17:22:21 CDT Kayla angel MD [facility] Procedures Code Procedure Name Date Entry Date Standard Desc ription CPT-48230 Urine Dip (Floor Use Only) 13:27:28 FLOUR MIXER HELPER 201 02/12/01 CPT-08710 Bladder Scan 13:27:28 FLOUR MIXER HELPER CPT-86044 Abd single AP View 14:30:51 FLOUR MIXER HELPER CPT-OV Office Visit 10:15:43 CDT CPT-93790 Urine Dip (Floor Use Only) 17:22:21 CDT 201 02/09/02 CPT-93443 Bladder Scan 17:22:21 CDT
--- OUTSIDE RECORDS SUMMARY | 2020-05-05 12:50 | XMS REPORT ---
Author Author [facility] Medic al StaffRENE Organization [facility] Address [address], [place] [id number] Phone [phone] Care Team Providers Care Warp Starter Name Role Phone MANUELITO SAMPSON MD PP [phone] Summary purpose TRANSITION OF CARE AUTO GENERATION Chief Complaint and Reason for Visit Admit Diagnosis 1 HEMATURIA NOS Problem list No authorized problems tracked for continuity of care are available for this vis it. Encounters No authorized problems tracked for encounter diagnoses are available for this vi sit. Medications No home medications recorded for this patient visit Allergies, adverse reactions, alerts Allergen Category Ingredient Status Reaction Severity Onset Ativan Drug Allergy Ativan Confirmed or Verified Flu like sym ptoms, weakness Moderate Adult Ativan Drug Allergy lorazepam Confirmed or Verified Flu like sym ptoms, weakness Moderate Adult Benadryl Drug Allergy Benadryl Confirmed or Verified Hives Sever e Adult Benadryl Drug Allergy diphenhydramine Confirmed or Verified Hives Severe Adult naproxen Drug Allergy naproxen Confirmed or Verified muscle aches Mo derate Adult Nuvigil Drug Allergy Nuvigil Confirmed or Verified Chest tightn ess, anxiety Severe Adult Nuvigil Drug Allergy armodafinil Confirmed or Verified Chest tight ness, anxiety Severe Adult Savella Drug Allergy Savella Confirmed or Verified Flu li ke symptoms, worse emotion Moderate Adult Savella Drug Allergy milnacipran Confirmed or Verified Flu li ke symptoms, worse emotion Moderate Adult Xanax Drug Allergy Xanax Confirmed or Verified rapid HR, inc. anxiety Severe Adult Xanax Drug Allergy alprazolam Confirmed or Verified rapid HR, in c. anxiety Severe Adult nitrofurantoin Drug Allergy nitrofurantoin Confirmed or Verified fe devang, chills, pass out Severe Adult Immunizations No immunizations recorded for this patient visit Relevant diagnostic tests and/or laboratory data No authorized results are available for this patient visit History of procedures Procedure Code Code Type Description Date Performed Performing Physician [id number] CPT-4 CT ABD & PELVIS W/O CONTRAST 12-11-2014 BRIAN DELGADILLO Functional status No functional or cognitive status [...]
--- OUTSIDE RECORDS SUMMARY | 2020-05-05 12:51 | XMS REPORT | Clinical Summary ---
Author Author Talon, Jeri Wood Organization [facility] Address Unknown Phone Unavailable Allergies, Adverse [...] spray each nostril twice daily FLUTICASONE PROPIONATE 69613445385 Active Tesfaye armenta MD Active LOVASTATIN 20 MG TABS Take 1 tablet by mouth daily LOVASTATIN 53215922744 No Longer Active Tesfaye Sherman MD Active MELOXICAM 7.5 MG TABS 1 tablet by mouth daily M ELOXICAM 52555306034 No Longer Active Tesfaye Sherman MD Active GABAPENTIN 300 MG CAPS Take two tablets by mouth every evening GABAPENTIN 06111012072 No Longer Active Edith Burch MD Active DIFLUCAN 150 MG TABS 1 qd FLUCONAZOLE 37326048262 Active Kayla Cooper MD Active TRIMETHOPRIM 100 MG TABS 1/2 qd TRIMETHOPRIM 4442775 3001 Active Kayla Cooper MD Active TIZANIDINE HCL 2 MG TABS take one tablet by mouth every day at bedtime at 9pm TIZANIDINE HCL 77407974386 Active Kayla Cooper MD Active OXYCODONE-ACETAMINOPHEN 5-325 MG TABS Take one tablet by mouth every 6 hours as needed. Max 12 tabs/day as needed OXYCODONE-ACETAMINOP HEN 80087252350 Active Tesfaye Sherman MD Active CYMBALTA 60 MG CPEP Take 1 tablet by mouth daily D ULOXETINE HCL 84848742740 Active Kayla Cooper MD Active CLONAZEPAM 0.5 MG TABS Take one tablet in the morning and 1.5 table t at 7pm CLONAZEPAM 94546617815 Active Kayla Cooper MD Active CETIRIZINE HCL 5 MG TABS Take 1 tablet by mouth daily CETIRIZINE HCL 82676233761 Active Kayla Cooper MD Active BACLOFEN 10 MG TABS Take one tablet by mouth three times a day BACLOFEN 30069768069 Active Kayla Cooper MD Active GABAPENTIN 300 MG CAPS Take two tablets by mouth every evening GABAPENTIN 300 MG CAPS 523220 GABAPENTIN Inactive MELOXICAM 7.5 MG TABS 1 tablet by mouth daily MELOXICAM 7.5 MG TABS 296301 MELOXICAM Inactive LOVASTATIN 20 MG TABS Take 1 tablet by mouth daily 201 02/12/20 LOVASTATIN 20 MG TABS 062492 LOVASTATIN Inactive Advance Directives Directive Description Start [...] Panel - Chemistry sodium, serum 138 mmol/L 575-464 0990/10/20 potassium, serum 4.5 mmol/L 3.5-5.2 chloride, serum [...] 0.90 mg/dL 0.00-1.00 cholesterol, serum 237 mg/dL 595-271 7306/10/20 triglyceride, serum, fasting 71 mg/dL 30-200 HDL [...] negative Encounters Code Encounter Date Provider Facility CPT-61509 Level 4 Est. Patient 15:57:17 MANAGER SYSTEMS Tesfaye pearson MD [facility] CPT-45056 Level 3 New Patient 13:25:47 CDT Tesfaye kidd MD [facility] CPT-30966 Level 3 New Patient 17:22:21 CDT Kayla angel MD [facility] Procedures Code Procedure Name Date Entry Date Standard Desc ription CPT-89896 Abd single AP View 14:30:51 MANAGER SYSTEMS CPT-OV Office Visit 10:15:43 CDT CPT-33787 Urine Dip (Floor Use Only) 17:22:21 CDT 201 02/09/02 CPT-22106 Bladder Scan 17:22:21 CDT
--- OUTSIDE RECORDS SUMMARY | 2020-05-05 12:51 | XMS REPORT | Clinical Summary ---
Author Author Talon, Jeri Wood Organization [facility] Address Unknown Phone Unavailable Allergies, Adverse Reactions, Alerts Allergy Name Reaction Description Start Date Severity Status Pr ovider NITROFURANTION Critical Active Tesfaye kidd MD XANAX Critical Active Kayla Shaw on SAVELLFer Critical Active Kayla hSaw on NUVIGIIsrael Critical Active Kayla Shaw on [...] tab by mouth twice daily 2 TRIMETHOPRIM-SULFAMETHOXAZOLE 38669051381 No Longer Active Tesfaye Sherman MD Active VITAMIN D3 2000 UNIT TABS 1 daily, for vitamin D deficiency CHOLECALCIFEROL 57704606065 Active Tesfaye Sherman MD Activ e PRELIEF 340 (65-50) MG (CA-P) ORAL TABS CALCIUM GLYCEROPHOSPHATE 72317123191 Active Tesfaye Sherman MD Active [facility] NIACIN FLUSH FREE 400-100 MG CAPS 1 daily NIACIN-INOSITOL 10359664306 Active Kayla Cooper MD Active DIFLUCAN 150 MG TABS 1 qd FLUCONAZOLE 34103 113448 No Longer Active Kayla Cooper MD Active FLUTICASONE PROPIONATE 50 MCG/ACT SUSP 1 spray each nostril twice daily FLUTICASONE PROPIONATE 94124989114 Active Tesfaye armenta MD Active LOVASTATIN 20 MG TABS Take 1 tablet by mouth daily LOVASTATIN 97564753690 No Longer Active Tesfaye Sherman MD Active MELOXICAM 7.5 MG TABS 1 tablet by mouth daily Gisela ELOXICAM 33012346138 No Longer Active Tesfaye Sherman MD Active GABAPENTIN 300 MG CAPS Take two tablets by mouth every evening GABAPENTIN 11196830325 No Longer Active Edith Burch MD Active TRIMETHOPRIM 100 MG TABS 1/2 qd TRIMETHOPRIM 7311893 3001 Active Kayla Cooper MD Active TIZANIDINE HCL 2 MG TABS take one tablet by mouth every day at bedtime at 9pm TIZANIDINE HCL 96987374125 Active Kayla Cooper MD Active OXYCODONE-ACETAMINOPHEN 5-325 MG TABS Take one tablet by mouth every 6 hours as needed. Max 12 tabs/day as needed OXYCODONE-ACETAMINOP HEN 18528442999 Active Tesfaye Sherman MD Active CYMBALTA 60 MG CPEP Take 1 tablet by mouth daily D ULOXETINE HCL 06172794578 Active Kayla Cooper MD Active CLONAZEPAM 0.5 MG TABS Take one tablet in the morning and 1.5 table t at 7pm CLONAZEPAM 76453604913 Active Kayla Cooper MD Active CETIRIZINE HCL 5 MG TABS Take 1 tablet by mouth daily CETIRIZINE HCL 56616654326 Active Kayla Cooper MD Active BACLOFEN 10 MG TABS Take one tablet by mouth three times a day BACLOFEN 55501708003 Active Kayla Cooper MD Active GABAPENTIN 300 MG CAPS Take two tablets by mouth every evening GABAPENTIN 300 MG CAPS 614371 GABAPENTIN Inactive MELOXICAM 7.5 MG TABS 1 tablet by mouth daily MELOXICAM 7.5 MG TABS 659723 MELOXICAM Inactive LOVASTATIN 20 MG TABS Take 1 tablet by mouth daily 201 02/12/20 LOVASTATIN 20 MG TABS 686399 LOVASTATIN Inactive DIFLUCAN 150 MG TABS 1 qd DIFLUCAN 150 MG T ABS 608747 FLUCONAZOLE Inactive BACTRIM DS 800-160 MG TAB [...] Panel - Chemistry sodium, serum 138 mmol/L 176-068 3761/10/20 potassium, serum 4.5 mmol/L 3.5-5.2 chloride, serum [...] 0.90 mg/dL 0.00-1.00 cholesterol, serum 237 mg/dL 623-449 5708/10/20 triglyceride, serum, fasting 71 mg/dL 30-200 HDL [...] Panel - Chemistry cholesterol, serum 221 mg/dL 935-217 6696/01/23 triglyceride, serum, fasting 81 mg/dL 30-200 HDL [...] negative Encounters Code Encounter Date Provider Facility CPT-92130 Level 3 Est. Patient 16:36:07 BRUSH HAND Kayla jameson MD [facility] CPT-83783 Level 4 Est. Patient 16:00:14 BRUSH HAND Tesfaye pearson MD [facility] CPT-43277 Level 4 Est. Patient 11:02:24 BRUSH HAND Tefsaye pearson MD [facility] CPT-81201 Level 3 Est. Patient 20:21:43 BRUSH HAND Kayla jameson MD [facility] CPT-90163 Level 3 Est. Patient 13:27:28 BRUSH HAND Kayla jameson MD [facility] CPT-57522 Level 4 Est. Patient 15:57:17 BRUSH HAND Tesfaye pearson MD [facility] CPT-30333 Level 3 New Patient 13:25:47 CDT Tesfaye kidd MD [facility] CPT-37162 Level 3 New Patient 17:22:21 CDT Kayla angel MD [facility] Procedures Code Procedure Name Date Entry Date Standard Desc ription CPT-J3420 Vitamin B12 1000mcg (Cyanocobalamin) 09:11:07 BRUSH HAND CPT-54482 Abx/Therapy Injection 09:11:07 BRUSH HAND CPT-J3420 Vitamin B12 1000mcg (Cyanocobalamin) 09:57:03 BRUSH HAND CPT-51322 Abx/Therapy Injection 09:57:03 BRUSH HAND CPT-J3420 Vitamin B12 1000mcg (Cyanocobalamin) 09:23:21 BRUSH HAND CPT-70424 Abx/Therapy Injection 09:23:21 BRUSH HAND CPT-11422 Urine Dip (Floor Use Only) 20:21:44 BRUSH HAND 201 02/12/11 CPT-05028 UA Dip Auto (Floor Use Only) 10:04:39 BRUSH HAND 2 CPT-13400 Urine Dip (Floor Use Only) 13:27:28 BRUSH HAND 201 02/12/01 CPT-54177 Bladder Scan 13:27:28 BRUSH HAND CPT-60299 Abd single AP View 14:30:51 BRUSH HAND CPT-OV Office Visit 10:15:43 CDT CPT-70062 Urine Dip (Floor Use Only) 17:22:21 CDT 201 02/09/02 CPT-40768 Bladder Scan 17:22:21 CDT
--- OUTSIDE RECORDS SUMMARY | 2020-05-05 12:51 | XMS REPORT | Clinical Summary ---
Author Author Talon, Jeri Wood Organization [facility] Address Unknown Phone Unavailable Allergies, Adverse Reactions, [...] tab by mouth twice daily 2 TRIMETHOPRIM-SULFAMETHOXAZOLE 85794877406 No Longer Active Tesfaye Sherman MD Active VITAMIN D3 2000 UNIT TABS 1 daily, for vitamin D deficiency CHOLECALCIFEROL 98535245863 Active Tesfaye Sherman MD Activ e PRELIEF 340 (65-50) MG (CA-P) ORAL TABS CALCIUM GLYCEROPHOSPHATE 17287727955 Active Tesfaye Sherman MD Active [facility] NIACIN FLUSH FREE 400-100 MG CAPS 1 daily NIACIN-INOSITOL 40299616292 Active Kayla Cooper MD Active DIFLUCAN 150 MG TABS 1 qd FLUCONAZOLE 85728 707661 No Longer Active Kayla Cooper MD Active FLUTICASONE PROPIONATE 50 MCG/ACT SUSP 1 spray each nostril twice daily FLUTICASONE PROPIONATE 67057160126 Active Tesfaye armenta MD Active LOVASTATIN 20 MG TABS Take 1 tablet by mouth daily LOVASTATIN 06377563556 No Longer Active Tesfaye Sherman MD Active MELOXICAM 7.5 MG TABS 1 tablet by mouth daily Gisela ELOXICAM 62050771958 No Longer Active Tesfaye Sherman MD Active GABAPENTIN 300 MG CAPS Take two tablets by mouth every evening GABAPENTIN 96116937193 No Longer Active Edith Burch MD Active TRIMETHOPRIM 100 MG TABS 1/2 qd TRIMETHOPRIM 0590125 3001 Active Kayla Cooper MD Active TIZANIDINE HCL 2 MG TABS take one tablet by mouth every day at bedtime at 9pm TIZANIDINE HCL 70280355098 Active Kayla Cooper MD Active OXYCODONE-ACETAMINOPHEN 5-325 MG TABS Take one tablet by mouth every 6 hours as needed. Max 12 tabs/day as needed OXYCODONE-ACETAMINOP HEN 28411410136 Active Tesfaye Sherman MD Active CYMBALTA 60 MG CPEP Take 1 tablet by mouth daily D ULOXETINE HCL 36575980952 Active Kayla Cooper MD Active CLONAZEPAM 0.5 MG TABS Take one tablet in the morning and 1.5 table t at 7pm CLONAZEPAM 75104763915 Active Kayla Cooper MD Active CETIRIZINE HCL 5 MG TABS Take 1 tablet by mouth daily CETIRIZINE HCL 46704360084 Active Kayla Cooper MD Active BACLOFEN 10 MG TABS Take one tablet by mouth three times a day BACLOFEN 00180420124 Active Kayla Cooper MD Active GABAPENTIN 300 MG CAPS Take two tablets by mouth every evening GABAPENTIN 300 MG CAPS 246817 GABAPENTIN Inactive MELOXICAM 7.5 MG TABS 1 tablet by mouth daily MELOXICAM 7.5 MG TABS 818367 MELOXICAM Inactive LOVASTATIN 20 MG TABS Take 1 tablet by mouth daily 201 02/12/20 LOVASTATIN 20 MG TABS 612022 LOVASTATIN Inactive DIFLUCAN 150 MG TABS 1 qd DIFLUCAN 150 MG T ABS 912158 FLUCONAZOLE Inactive BACTRIM DS 800-160 MG TAB [...] Panel - Chemistry sodium, serum 138 mmol/L 771-173 8404/10/20 potassium, serum 4.5 mmol/L 3.5-5.2 chloride, serum [...] 0.90 mg/dL 0.00-1.00 cholesterol, serum 237 mg/dL 792-191 5971/10/20 triglyceride, serum, fasting 71 mg/dL 30-200 HDL [...] Panel - Chemistry cholesterol, serum 221 mg/dL 218-726 4935/01/23 triglyceride, serum, fasting 81 mg/dL 30-200 HDL [...] negative Encounters Code Encounter Date Provider Facility CPT-48396 Level 3 Est. 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 Patient 16:00:14 DANCE PROFESSOR Tesfaye pearson MD [facility] CPT-89971 Level 4 Est. Patient 11:02:24 DANCE PROFESSOR Tesfaye pearson MD [facility] CPT-83147 Level 3 Est. Patient 20:21:43 DANCE PROFESSOR Kayla jameson MD [facility] CPT-25340 Level 3 Est. Patient 13:27:28 DANCE PROFESSOR Kayla jameson MD [facility] CPT-51498 Level 4 Est. Patient 15:57:17 DANCE PROFESSOR Tesfaye pearson MD [facility] CPT-75217 Level 3 New Patient 13:25:47 CDT Tesfaye kidd MD [facility] CPT-52938 Level 3 New Patient 17:22:21 CDT J John angel MD [facility] Procedures Code Procedure Name Date Entry Date Standard Desc ription CPT-J3420 Vitamin B12 1000mcg (Cyanocobalamin) 09:49:14 CDT CPT-72555 Abx/Therapy Injection 09:49:14 CDT CPT-J3420 Vitamin B12 1000mcg (Cyanocobalamin) 09:10:30 DANCE PROFESSOR CPT-11226 Abx/Therapy Injection 09:10:30 DANCE PROFESSOR CPT-J3420 Vitamin B12 1000mcg (Cyanocobalamin) 09:11:07 DANCE PROFESSOR CPT-54973 Abx/Therapy Injection 09:11:07 DANCE PROFESSOR CPT-J3420 Vitamin B12 1000mcg (Cyanocobalamin) 09:57:03 DANCE PROFESSOR CPT-44541 Abx/Therapy Injection 09:57:03 DANCE PROFESSOR CPT-J3420 Vitamin B12 1000mcg (Cyanocobalamin) 09:23:21 DANCE PROFESSOR CPT-92185 Abx/Therapy Injection 09:23:21 DANCE PROFESSOR CPT-90948 Urine Dip (Floor Use Only) 20:21:44 DANCE PROFESSOR 201 02/12/11 CPT-68594 UA Dip Auto (Floor Use Only) 10:04:39 DANCE PROFESSOR 2 CPT-37429 Urine Dip (Floor Use Only) 13:27:28 DANCE PROFESSOR 201 02/12/01 CPT-33232 Bladder Scan 13:27:28 DANCE PROFESSOR CPT-37015 Abd single AP View 14:30:51 DANCE PROFESSOR CPT-OV Office Visit 10:15:43 CDT CPT-59020 Urine Dip (Floor Use Only) 17:22:21 CDT 201 02/09/02 CPT-69300 Bladder Scan 17:22:21 CDT
--- OUTSIDE RECORDS SUMMARY | 2020-05-05 12:51 | XMS REPORT | Clinical Summary ---
Author Author Talon, Jeri Wood Organization [facility] Address Unknown Phone Unavailable Allergies, [...] tab by mouth twice daily 2 TRIMETHOPRIM-SULFAMETHOXAZOLE 58158302623 No Longer Active Tesfaye Sherman MD Active VITAMIN D3 2000 UNIT TABS 1 daily, for vitamin D deficiency CHOLECALCIFEROL 89096812448 Active Tesfaye Sherman MD Activ e PRELIEF 340 (65-50) MG (CA-P) ORAL TABS CALCIUM GLYCEROPHOSPHATE 08991004140 Active Tesfaye Sherman MD Active [facility] NIACIN FLUSH FREE 400-100 MG CAPS 1 daily NIACIN-INOSITOL 41666417101 Active Kayla Cooper MD Active DIFLUCAN 150 MG TABS 1 qd FLUCONAZOLE 96082 907556 No Longer Active Kayla Cooper MD Active FLUTICASONE PROPIONATE 50 MCG/ACT SUSP 1 spray each nostril twice daily FLUTICASONE PROPIONATE 99309443425 Active Tesfaye armenta MD Active LOVASTATIN 20 MG TABS Take 1 tablet by mouth daily LOVASTATIN 61831418597 No Longer Active Tesfaye Sherman MD Active MELOXICAM 7.5 MG TABS 1 tablet by mouth daily Gisela ELOXICAM 78163062289 No Longer Active Tesfaye Sherman MD Active GABAPENTIN 300 MG CAPS Take two tablets by mouth every evening GABAPENTIN 72049104053 No Longer Active Edith Burch MD Active TRIMETHOPRIM 100 MG TABS 1/2 qd TRIMETHOPRIM 8099243 3001 Active Kayla Cooper MD Active TIZANIDINE HCL 2 MG TABS take one tablet by mouth every day at bedtime at 9pm TIZANIDINE HCL 71552259032 Active Kayla Cooper MD Active OXYCODONE-ACETAMINOPHEN 5-325 MG TABS Take one tablet by mouth every 6 hours as needed. Max 12 tabs/day as needed OXYCODONE-ACETAMINOP HEN 88735312405 Active Tesfaye Sherman MD Active CYMBALTA 60 MG CPEP Take 1 tablet by mouth daily D ULOXETINE HCL 87144075456 Active Kayla Cooper MD Active CLONAZEPAM 0.5 MG TABS Take one tablet in the morning and 1.5 table t at 7pm CLONAZEPAM 03065980659 Active Kayla Cooper MD Active CETIRIZINE HCL 5 MG TABS Take 1 tablet by mouth daily CETIRIZINE HCL 84653799513 Active Kayla Cooper MD Active BACLOFEN 10 MG TABS Take one tablet by mouth three times a day BACLOFEN 42534033728 Active Kayla Cooper MD Active GABAPENTIN 300 MG CAPS Take two tablets by mouth every evening GABAPENTIN 300 MG CAPS 933518 GABAPENTIN Inactive MELOXICAM 7.5 MG TABS 1 tablet by mouth daily MELOXICAM 7.5 MG TABS 678751 MELOXICAM Inactive LOVASTATIN 20 MG TABS Take 1 tablet by mouth daily 201 02/12/20 LOVASTATIN 20 MG TABS 823646 LOVASTATIN Inactive DIFLUCAN 150 MG TABS 1 qd DIFLUCAN 150 MG T ABS 880496 FLUCONAZOLE Inactive BACTRIM DS 800-160 MG TAB [...] Panel - Chemistry sodium, serum 138 mmol/L 652-182 6419/10/20 potassium, serum 4.5 mmol/L 3.5-5.2 chloride, serum [...] 0.90 mg/dL 0.00-1.00 cholesterol, serum 237 mg/dL 292-072 2337/10/20 triglyceride, serum, fasting 71 mg/dL 30-200 HDL [...] Panel - Chemistry cholesterol, serum 221 mg/dL 874-950 7347/01/23 triglyceride, serum, fasting 81 mg/dL 30-200 HDL [...] negative Encounters Code Encounter Date Provider Facility CPT-40321 Level 3 Est. Patient 16:36:07 LABOR EMPLOYMENT ASSOCIATE Kayla jameson MD [facility] CPT-77220 Level 4 Est. Patient 16:00:14 LABOR EMPLOYMENT ASSOCIATE Tesfaye pearson MD [facility] CPT-70042 Level 4 Est. Patient 11:02:24 LABOR EMPLOYMENT ASSOCIATE Tesfaye pearson MD [facility] CPT-10405 Level 3 Est. Patient 20:21:43 LABOR EMPLOYMENT ASSOCIATE Kayla jameson MD [facility] CPT-31740 Level 3 Est. Patient 13:27:28 LABOR EMPLOYMENT ASSOCIATE Kayla jameson MD [facility] CPT-09995 Level 4 Est. Patient 15:57:17 LABOR EMPLOYMENT ASSOCIATE Tesfaye pearson MD [facility] CPT-20166 Level 3 New Patient 13:25:47 CDT Tesfaye kidd MD [facility] CPT-95748 Level 3 New Patient 17:22:21 CDT Kayla angel MD [facility] Procedures Code Procedure Name Date Entry Date Standard Desc ription CPT-J3420 Vitamin B12 1000mcg (Cyanocobalamin) 09:11:07 LABOR EMPLOYMENT ASSOCIATE CPT-95235 Abx/Therapy Injection 09:11:07 LABOR EMPLOYMENT ASSOCIATE CPT-J3420 Vitamin B12 1000mcg (Cyanocobalamin) 09:57:03 LABOR EMPLOYMENT ASSOCIATE CPT-87772 Abx/Therapy Injection 09:57:03 LABOR EMPLOYMENT ASSOCIATE CPT-J3420 Vitamin B12 1000mcg (Cyanocobalamin) 09:23:21 LABOR EMPLOYMENT ASSOCIATE CPT-20422 Abx/Therapy Injection 09:23:21 LABOR EMPLOYMENT ASSOCIATE CPT-19695 Urine Dip (Floor Use Only) 20:21:44 LABOR EMPLOYMENT ASSOCIATE 201 02/12/11 CPT-48160 UA Dip Auto (Floor Use Only) 10:04:39 LABOR EMPLOYMENT ASSOCIATE 2 CPT-34459 Urine Dip (Floor Use Only) 13:27:28 LABOR EMPLOYMENT ASSOCIATE 201 02/12/01 CPT-65618 Bladder Scan 13:27:28 LABOR EMPLOYMENT ASSOCIATE CPT-87161 Abd single AP View 14:30:51 LABOR EMPLOYMENT ASSOCIATE CPT-OV Office Visit 10:15:43 CDT CPT-05947 Urine Dip (Floor Use Only) 17:22:21 CDT 201 02/09/02 CPT-08431 Bladder Scan 17:22:21 CDT
--- OUTSIDE RECORDS SUMMARY | 2020-05-05 12:51 | XMS REPORT ---
Author Author [facility] Medic al Staff, RENE Wood Organization [facility] Address [address] [place] [id number] Phone [phone] Care Team Providers Care Supervisor [employer] Name Role Phone MANUELITO SAMPSON MD PP [phone] Summary purpose TRANSITION OF CARE AUTO GENERATION [...]
--- OUTSIDE RECORDS SUMMARY | 2020-05-05 12:51 | XMS REPORT | Continuity of Care Document ---
Author Organization Unknown Address Unknown Phone Unavailable Allergies Active Description Code Type Severity Reaction Onset Reported/Identified Relationship to Patient Clinical Status Yes alprazolam 1464 Drug Allergy N/A N/A Confirmed or V erified Yes armodafinil 54504 Drug Allergy N/A N/A Confirmed or V erified Yes Ativan 6449 Drug Allergy Moderate Flu like symptoms, weakness Yes Benadryl 5527 Drug Allergy Severe Hives Yes diphenhydramine 4787 Drug Allergy N/A N/A Confirmed or Verified Yes lorazepam 1460 Drug Allergy N/A N/A Confirmed or V erified Yes milnacipran 8263 Drug Allergy N/A N/A Confirmed or V erified Yes naproxen 2380 Drug Allergy Moderate muscle aches Yes naproxen 2380 Drug Allergy N/A N/A Confirmed or V erified Yes nitrofurantoin 2852 Drug Allergy Severe fever, chills, pass out Yes nitrofurantoin 2852 Drug Allergy N/A N/A Confirmed or Verified Yes Nuvigil 827143 Drug Allergy Severe Chest tightness, anxiety Yes Savella 388893 Drug Allergy Moderate Flu like symptoms, worse emotion Yes Xanax 9259 Drug Allergy Severe rapid HR, inc. anxiety Yes Ativan Drug Allergy N/A N/A 01/24/2014 Yes Benadryl Drug Allergy N/A N/A 01/24/2014 Yes lorazepam Drug Allergy N/A N/A 01/24/2014 Yes naproxen Drug Allergy N/A N/A 01/24/2014 Yes nitrofurantoin Drug Allergy N/A N/A 01/24/2014 Yes Nuvigil Drug Allergy N/A N/A 01/24/2014 Yes Savella Drug Allergy N/A N/A 01/24/2014 Yes Xanax Drug Allergy N/A N/A 01/24/2014 Yes ALENDRONATE 73821 DRUG High Headache 11/09/2018 Yes ALPRAZOLAM 37337 DRUG INGREDI High Anxiety 11/09/2018 Yes ARMODAFINIL 72360 DRUG INGREDI High Chest Pain 11/09/2018 Yes CEFUROXIME AXETIL 66267 DRUG INGREDI High Nausea 11/09/2018 Yes CIPROFLOXACIN 35019 DRUG INGREDI N/A N/A 11/09/2018 [place]HENHYDRAMINE HCL [address] SANCHEZ INGREDI High Hives 11/09/2018 Yes LORAZEPAM 60991 DRUG INGREDI High N/A 11/09/2018 Yes MILNACIPRAN 44089 DRUG INGREDI High Fever 11/09/2018 Yes MIRTAZAPINE 02960 DRUG INGREDI Med Fatigue 11/09/2018 Yes NAPROXEN 67907 DRUG INGREDI High Muscle aches 11/09/2018 Yes NITROFURAN ANALOGUES 73924 D rug Class High Fever 11/09/2018 Yes PRAMIPEXOLE 27395 DRUG INGREDI High Dizziness 11/09/2018 Medications There is no data. Problems Date Dx Coded Attending Type Code Diagnosis Diagnosed By 01/24/2014 IRON SANZ DDS V72 .2 DENTAL EXAMINATION 02/07/2014 IRON SANZ DDS V72 .2 DENTAL EXAMINATION 09/01/2014 GILBERT JOHNSON V76.12 OT SCREEN MAMMOGRAM 10/13/2014 BRIAN DELGADILLO 599.0 URIN TRACT INFECTION NOS 10/13/2014 BRIAN DELGADILLO 599.7 0 HEMATURIA NOS 10/13/2014 BRIAN DELGADILLO 787.0 2 NAUSEA ALONE 10/13/2014 BRIAN DELGADILLO 789.0 9 ABDOMINAL PAIN, OTHER 08/28/2017 Manuelito Sherman MD R30. 0 Dysuria 09/14/2017 Manuelito Sherman MD F33. 9 Depression, major, recurrent 09/14/2017 Manuelito Sherman MD J06. 9 URI 09/14/2017 Manuelito Sherman MD M85. 80 Osteopenia 03/09/2018 Manuelito Sherman MD F33. 1 Major depressive disorder, recurrent, moderate 03/09/2018 Manuelito Sherman MD Z00. 00 Preventive health care 03/09/2018 Manuelito Sherman MD Z68. 21 Body Mass Index 21.0-21.9 Adult 04/30/2018 Manuelito Sherman MD R42 Vertigo 09/09/2018 Manuelito Sherman MD R30. 0 Dysuria 09/09/2018 Whit GREEN, Manuelito Z68. 20 Body Mass Index 20.0-20.9 Adult 09/09/2018 Manuelito Sherman MD Z79. 899 High risk meds longterm use 09/09/2018 MANUELITO SHERMAN MD R3 0.0 Dysuria 09/09/2018 Manuelito Sherman MD B37. 9 Yeast infection 09/09/2018 Manuelito Sherman MD J06. 9 Upper respiratory infection 12/10/2018 Manuelito Sherman MD Z68. 22 BMI 22-22.9 02/09/2019 Manuelito Sherman MD R60. 0 Lower extremity edema, bilateral 02/09/2019 Manuelito Sherman MD Z68. 23 BMI 23-23.9 02/25/2019 Manuelito Sherman MD Z68. 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 81 Restless leg syndrome 05/31/2019 Manuelito Sherman MD Z68. 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 24 BMI 24-24.9 03/01/2020 Whit GREEN, Manuelito E66. 3 Overweight (BMI 25-29.9) 03/01/2020 Manuelito Sherman MD Z68. 25 BMI 25-25.9 04/06/2020 Whit GREEN, Manuelito R60. 9 Peripheral edema 04/06/2020 Whit GREEN, Manuelito Z68. 24 BMI 24-24.9 Procedures Code Description [place] D[address] AMAL GURJIT TWO SURFACES PERMANE 02/07/2014 85568 COMP SCREEN MAMMOGRAM ADD-ON 09/01/2014 10416 MAMM OGRAM, SCREENING 09/01/[address] A BD & PELVIS W/O CONTRAST 10/13/2014 18705 URIN E CULTURE/COLONY COUNT MANUELITO SHERMAN MD 09/09/2018 [id number] FE RRITIN 07/02/2019 [id number] IR ON/TRANSFERRIN 07/02/2019 Results Test Result Range UA - 06/23/14 00:00 PH 7.5 4.5-8.0 SG 1.015 1.003-1.035 UABILI NEGATIVE UABLD TRACE UACOLOR YEL UAGLU NEGATIVE UAKET NEGATIVE UALEUK NEGATIVE UANIT NEGATIVE UAURO 0.2 0-0.2 CLARITY CL PROTEIN NEGATIVE UA WBC NOWBC UA RBC R05 SQUAMOUS EPITHELIAL CELLS FEW IRON/TRANSFERRIN - 07/02/19 14:43 Iron 99 50-180 Total Iron-Binding Capacity 419 20 4-408 Transferrin 349 206-381 IRON/TRANSFERRIN % SATURATION 24 15-50 FERRITIN - 07/02/19 14:43 Ferritin 36 20-200 Encounters ACCT No. Visit Date/Time Discharge Status Pt. Type Provider Facility Loc./Unit Complaint [id number] 09/09/2018 16:05:00 09/09/2018 16:05 :00 DIS Outpatient MANUELITO SHERMAN MD LAB [id number] 04/13/2020 08:47:02 ACT Unknown Manuelito Sherman MD [id number] 09/26/2019 22:13:03 ACT Document Registration [id number] 04/06/2020 08:54:36 0 23:59:59 CLS Preadmit MANUELITO SHERMAN [facility] screening [id number] 05/10/2019 12:37:21 9 23:59:59 DIS Outpatient MANUELITO SHERMAN [facility] Screening [id number] 03/31/2018 14:00:22 8 23:59:59 DIS Outpatient MANUELITO SHERMAN [facility] screening [id number] 03/27/2017 10:23:19 7 23:59:59 CLS Outpatient MANUELITO SHERMAN [facility] screening [id number] 04/21/2020 10:26:51 020 23:59:59 CLS Outpatient BAILEY LINDSEY E [facility] RLS [id number] 11/19/2019 12:49:43 020 23:59:59 CLS Outpatient BAILEY LINDSEY E [facility] muscle spasticity [id number] 07/02/2019 13:30:50 019 23:59:59 CLS Outpatient BAILEY LINDSEY [facility] Muscle spasticity [id number] 03/19/2019 10:16:29 Document Registration [id number] 10/20/2014 12:15:00 10/20/2014 16:30 :00 DIS Inpatient BRIAN DELGADILLO [facility] OPS [id number] 10/13/2014 11:33:00 10/13/2014 11:33 :00 DIS Outpatient BRIAN DELGADILLO [facility] RAD [id number] 09/01/2014 14:08:00 09/01/2014 14:08 :00 DIS Outpatient GILBERT JOHNSON [facility] RAD [id number] 06/23/2014 09:19:00 06/23/2014 09:19 :00 DIS Outpatient STANISLAV RIVERA [facility] LAB [id number] 10/02/2013 00:00:00 Document Registration [id number] 12/20/2019 14:00:00 12/20/2019 23:59: 59 CLS Outpatient [facility] [address] [id number] 02/07/2014 15:07:00 02/07/2014 23:59: 59 CLS Outpatient IRON SANZ DDS [id number] 02/20/2015 15:29:00 5 23:59:00 DIS Outpatient RobinbenjamínNorman [id number] 05/09/2014 09:21:55 05/09/2014 23:59: 59 CLS Outpatient STANISLAV RIVERA [id number] 01/17/2014 14:06:20 01/17/2014 23:59: 59 CLS Outpatient STANISLAV RIVERA [id number] 11/02/2013 10:35:52 11/02/2013 23:59: 59 CLS Outpatient STANISLAV RIVERA
--- OUTSIDE RECORDS SUMMARY | 2020-05-05 12:51 | XMS REPORT | Clinical Summary ---
Author Author Jeri Hanley Organization [facility] Address Unknown Phone Unavailable Allergies, Adverse Reactions, [...] Instructions Start Date Stop Date Generic Name [facility] Status Provider Patient Instruction GABAPENTIN 300 MG CAPS Take two tablets by mouth every evening GABAPENTIN 38493672743 No Longer Active Edith Burch MD Active DIFLUCAN 150 MG TABS 1 qd FLUCONAZOLE 16009452207 Active Kayla Cooper MD Active TRIMETHOPRIM 100 MG TABS 1/2 qd TRIMETHOPRIM 0087946 3001 Active Kayla Cooper MD Active TIZANIDINE HCL 2 MG TABS take one tablet by mouth every day at bedtime at 9pm TIZANIDINE HCL 83918074090 Active Kayla Cooper MD Active OXYCODONE-ACETAMINOPHEN 5-325 MG TABS Take one tablet by mouth every 6 hours as needed. Max 12 tabs/day as needed OXYCODONE-ACETAMINOP HEN 63205032903 Active Kayla Cooper MD Active LOVASTATIN 20 MG TABS Take 1 tablet by mouth daily LOVASTATIN 27569895306 Active Kayla Cooper MD Active CYMBALTA 60 MG CPEP Take 1 tablet by mouth daily D ULOXETINE HCL 38012198203 Active Kayla Cooper MD Active CLONAZEPAM 0.5 MG TABS Take one tablet in the morning and 1.5 table t at 7pm CLONAZEPAM 72198892639 Active Kayla Cooper MD Active CETIRIZINE HCL 5 MG TABS Take 1 tablet by mouth daily CETIRIZINE HCL 77832530339 Active Kayla Cooper MD Active BACLOFEN 10 MG TABS Take one tablet by mouth three times a day BACLOFEN 77807077147 Active Kayla Cooper MD Active GABAPENTIN 300 MG CAPS Take two tablets by mouth every evening GABAPENTIN 300 MG CAPS 706896 GABAPENTIN Inactive Advance Directives Directive Description Start [...] negative Encounters Code Encounter Date Provider Facility CPT-46614 Level 3 New Patient 17:22:21 CDT Kayla angel MD [facility] Procedures Code Procedure Name Date Entry Date Standard Desc ription CPT-OV Office Visit 10:15:43 CDT CPT-70235 Urine Dip (Floor Use Only) 17:22:21 CDT 201 02/09/02 CPT-93438 Bladder Scan 17:22:21 CDT
[2020-05-05 13:07] LABS: BILIRUBIN,URINE NEGATIVE (NEGATIVE); CLARITY,URINE CLEAR; COLOR,URINE YELLOW; GLUCOSE, URINE (UA) NEGATIVE (NEGATIVE); KETONES,URINE NEGATIVE (NEGATIVE); LEUKOCYTE ESTERASE ,URINE NEGATIVE (NEGATIVE); NITRITE,URINE NEGATIVE (NEGATIVE); PROTEIN,URINE NEGATIVE (NEGATIVE)
[2020-05-05] MEDS ORDERED: CYCL10TA9 PO (13:07)
[2020-05-05 13:23] VITALS: BP 139/91
[2020-05-05 13:39] LABS: BACTERIA,URINE TRACE /HPF; WBC,URINE 0-2 /HPF
[2020-05-05 13:40] LABS: AMORPHOUS SEDIMENT,UR RARE AMOR URATES /LPF
== END 2020-05-05 13:23 | disposition home or self-care (01) ==
LOC: EDUNIT# 10:51 → ER 10:52
DX: M25.552 Pain in left hip (principal); M25.512 Pain in left shoulder; V49.88XA Car occupant (driver) (passenger) injured in other specified transport accidents, initial encounter; F17.210 Nicotine dependence, cigarettes, uncomplicated; Z88.1 Allergy status to other antibiotic agents; Z88.8 Allergy status to other drugs, medicaments and biological substances
CPT/HCPCS: 70450; 71045; 72125; 73030; 73502; 80048; 80076; 81000; 84703; 85027; 93005; 93041; 99284; G0480; 36415; 80320